=== PATIENT | female | born 1990 | race African-American/Black ===

== ENCOUNTER 2018-10-26 16:00 | Emergency (ER) | payer OTHER ==
--- OUTSIDE RECORDS SUMMARY | 2018-10-26 16:16 | XMS REPORT ---
:1990 [facility] [address] [place] [address] [address] [place] [address] Care Team Providers Name Role Phone SHANON PEREIRA JACQUE Unavailable Unavailable REDDFLIP Unavailable Unavailable SAMWAYS, ANNIKA TRUJILLO Unavailable Unavailable GAYE, MARCO POTTER Unavailable Unavailable BEERS, JERALD GIRON Unavailable Unavailable AYANNA, ETHAN SALLY Unavailable Unavailable JESSICA, MAXX Unavailable Unavailable ZINDANI, YOSELYN Unavailable Unavailable JARROUTRACI COTO G. Unavailable Unavailable MAST, RABFAN AKRAM Unavailable Unavailable URVASHI NATHAN Unavailable Unavailable CARMEN, RYAN Unavailable Unavailable TATIANA TURNER Unavailable Unavailable JACQUE ROY Unavailable Unavailable Problems This patient has no known problems. Allergies, Adverse Reactions, Alerts This patient has no known allergies or adverse reactions. Medications This patient has no known medications. Results Test Description Test Time Test Comments Text Results Atomic Results Result Comments POCT-GLUCOSE METER 2018-10-09 12:08:00 Test Item Value Reference Range Comments POC-GLUCOSE METER (BEAKER) (test 140 mg/dL 70-[address] [facility] [address] [facility] [address] COMPREHENSIVE METABOLIC [id number] 10:03:00 Test Item Value Reference Range Comments TOTAL PROTEIN (BEAKER) 6.8 gm/dL 6.0-8.3 (test raiw=278) ALBUMIN (BEAKER) (test 3.1 g/dL 3.5-5.0 esmx=6073) ALKALINE PHOSPHATASE 98 U/L 40-150 (BEAKER) (test bvyn=371) BILIRUBIN TOTAL (BEAKER) 0.2 mg/dL 0.2-1.2 (test uvgu=273) SODIUM (BEAKER) (test 136 meq/L 136-145 ymsf=640) POTASSIUM (BEAKER) (test 4.4 meq/L 3.5-5.1 lbnk=156) CHLORIDE (BEAKER) (test 97 meq/L 98-107 wvwc=624) CO2 (BEAKER) (test 33 meq/L 22-29 wiey=188) BLOOD UREA NITROGEN 17 mg/dL 7-21 (BEAKER) (test kgfg=893) CREATININE (BEAKER) (test 0.68 mg/dL 0.57-1.25 eqim=197) GLUCOSE RANDOM (BEAKER) 234 mg/dL 70-105 (test vdgn=621) CALCIUM (BEAKER) (test 9.1 mg/dL 8.4-10.2 qxgo=839) AST (SGOT) (BEAKER) (test 12 U/L 5-34 bbww=892) ALT (SGPT) (BEAKER) (test 23 U/L 6-55 bhbh=277) EGFR (BEAKER) (test 127 mL/min/1.73 sq ESTIMATED GFR IS NOT nenf=9049) m ACCURATE CREATININE CLEARANCE IN PREDICTING GLOMERULAR FILTRATION RATE. ESTIMATED GFR IS NOT APPLICABLE FOR DIALYSIS PATIENTS. CBC W/PLT COUNT & AUTO [id number] 09:50:00 Test Item Value Reference Range Comments WHITE BLOOD CELL COUNT (BEAKER) (test hnaz=785) 10.5 K/ L 3.5-10.5 RED BLOOD CELL COUNT (BEAKER) (test czxu=610) 4.14 M/ L 3.93-5.22 HEMOGLOBIN (BEAKER) (test cmuj=504) 11.2 GM/DL 11.2-15.7 HEMATOCRIT (BEAKER) (test sxcq=957) 36.8 % 34.1-44.9 MEAN CORPUSCULAR VOLUME (BEAKER) (test jrno=751) 88.9 fL 79.4-94.8 MEAN CORPUSCULAR HEMOGLOBIN (BEAKER) (test 27.1 pg 25.6-32.2 llqh=926) MEAN CORPUSCULAR HEMOGLOBIN CONC (BEAKER) (test 30.4 GM/DL 32.2-35.5 dltm=367) RED CELL DISTRIBUTION WIDTH (BEAKER) (test 17.4 % 11.7-14.4 svmn=110) PLATELET COUNT (BEAKER) (test xkfq=815) 302 K/CU MM 150-450 MEAN PLATELET VOLUME (BEAKER) (test mztr=951) 11.2 fL 9.4-12.3 NUCLEATED RED BLOOD CELLS (BEAKER) (test 0 /100 WBC 0-0 kfwz=494) NEUTROPHILS RELATIVE PERCENT (BEAKER) (test 59 % kkia=711) LYMPHOCYTES RELATIVE PERCENT (BEAKER) (test 29 % mrmd=314) MONOCYTES RELATIVE PERCENT (BEAKER) (test 8 % oear=815) EOSINOPHILS RELATIVE PERCENT (BEAKER) (test 4 % ylsv=042) BASOPHILS RELATIVE PERCENT (BEAKER) (test 0 % mblk=654) NEUTROPHILS ABSOLUTE COUNT (BEAKER) (test 6.20 K/ L 1.56-6.13 bgvi=711) LYMPHOCYTES ABSOLUTE COUNT (BEAKER) (test 3.05 K/ L 1.18-3.74 iifz=872) MONOCYTES ABSOLUTE COUNT (BEAKER) (test 0.85 K/ L 0.24-0.36 jdej=546) EOSINOPHILS ABSOLUTE COUNT (BEAKER) (test 0.37 K/ L 0.04-0.36 wtdi=992) BASOPHILS ABSOLUTE COUNT (BEAKER) (test 0.02 K/ L 0.01-0.08 zrxp=853) IMMATURE GRANULOCYTES-RELATIVE PERCENT (BEAKER) 0 % 0-1 (test ixlm=1171) POCT-GLUCOSE [id number] 09:50:00 Test Item Value Reference Range Comments POC-GLUCOSE METER (BEAKER) 271 mg/dL 70-110 TESTED AT [address] (test mygh=6539) [place] [address] POCT-GLUCOSE [id number] 01:59:00 Test Item Value Reference Range Comments POC-GLUCOSE METER (BEAKER) 377 mg/dL 70-110 Notified JORDON STAPLETON/TESTED AT [facility] (test ytlg=6480) [address] [place], [place] [id number] POCT-GLUCOSE [id number] 21:37:00 Test Item Value Reference Range Comments POC-GLUCOSE METER (BEAKER) 92 mg/dL 70-110 TESTED AT [address] (test cpxl=7383) [place] [address] POCT-GLUCOSE [id number] 17:50:00 Test Item Value Reference Range Comments POC-GLUCOSE METER (BEAKER) 183 mg/dL 70-110 TESTED AT [address] (test ypmb=6589) [place] [address] POCT-GLUCOSE [id number] 13:40:00 Test Item Value Reference Range Comments POC-GLUCOSE METER (BEAKER) 230 mg/dL 70-[address] [facility] [address] [facility] (test cxyr=7944) [facility] [address] COMPREHENSIVE METABOLIC [id number] 10:59:00 Test Item Value Reference Range Comments TOTAL PROTEIN (BEAKER) 7.0 gm/dL 6.0-8.3 (test tlsw=229) ALBUMIN (BEAKER) (test 3.2 g/dL 3.5-5.0 ayvl=8559) ALKALINE PHOSPHATASE 100 U/L 40-150 (BEAKER) (test bimc=268) BILIRUBIN TOTAL (BEAKER) 0.2 mg/dL 0.2-1.2 (test wthd=151) SODIUM (BEAKER) (test 135 meq/L 136-145 yxqi=935) POTASSIUM (BEAKER) (test 4.3 meq/L 3.5-5.1 ekoi=067) CHLORIDE (BEAKER) (test 97 meq/L 98-107 jqyk=870) CO2 (BEAKER) (test 32 meq/L 22-29 rtod=426) BLOOD UREA NITROGEN 13 mg/dL 7-21 (BEAKER) (test pbpl=636) CREATININE (BEAKER) (test 0.67 mg/dL 0.57-1.25 kddm=869) GLUCOSE RANDOM (BEAKER) 223 mg/dL 70-105 (test jflv=292) CALCIUM (BEAKER) (test 9.1 mg/dL 8.4-10.2 xbgl=183) AST (SGOT) (BEAKER) (test 14 U/L 5-34 dnkm=600) ALT (SGPT) (BEAKER) (test 27 U/L 6-55 mqem=786) EGFR (BEAKER) (test 129 mL/min/1.73 sq ESTIMATED GFR IS NOT zdwu=9995) m ACCURATE CREATININE CLEARANCE IN PREDICTING GLOMERULAR FILTRATION RATE. ESTIMATED GFR IS NOT APPLICABLE FOR DIALYSIS PATIENTS. CBC W/PLT COUNT & AUTO [id number] 10:45:00 Test Item Value Reference Range Comments WHITE BLOOD CELL COUNT (BEAKER) (test aztq=056) 12.9 K/ L 3.5-10.5 RED BLOOD CELL COUNT (BEAKER) (test zbaa=569) 4.07 M/ L 3.93-5.22 HEMOGLOBIN (BEAKER) (test ddeo=011) 11.0 GM/DL 11.2-15.7 HEMATOCRIT (BEAKER) (test rtms=475) 36.6 % 34.1-44.9 MEAN CORPUSCULAR VOLUME (BEAKER) (test djwm=075) 89.9 fL 79.4-94.8 MEAN CORPUSCULAR HEMOGLOBIN (BEAKER) (test 27.0 pg 25.6-32.2 vqpc=722) MEAN CORPUSCULAR HEMOGLOBIN CONC (BEAKER) (test 30.1 GM/DL 32.2-35.5 pkql=849) RED CELL DISTRIBUTION WIDTH (BEAKER) (test 17.7 % 11.7-14.4 ekyw=236) PLATELET COUNT (BEAKER) (test iots=245) 307 K/CU MM 150-450 MEAN PLATELET VOLUME (BEAKER) (test ejlt=639) 11.5 fL 9.4-12.3 NUCLEATED RED BLOOD CELLS (BEAKER) (test 0 /100 WBC 0-0 kdvr=276) NEUTROPHILS RELATIVE PERCENT (BEAKER) (test 65 % uano=467) LYMPHOCYTES RELATIVE PERCENT (BEAKER) (test 23 % fbgj=151) MONOCYTES RELATIVE PERCENT (BEAKER) (test 8 % vnba=614) EOSINOPHILS RELATIVE PERCENT (BEAKER) (test 3 % pqqo=440) BASOPHILS RELATIVE PERCENT (BEAKER) (test 0 % lcxz=397) NEUTROPHILS ABSOLUTE COUNT (BEAKER) (test 8.36 K/ L 1.56-6.13 awqe=987) LYMPHOCYTES ABSOLUTE COUNT (BEAKER) (test 3.01 K/ L 1.18-3.74 jccb=620) MONOCYTES ABSOLUTE COUNT (BEAKER) (test 1.02 K/ L 0.24-0.36 tlld=379) EOSINOPHILS ABSOLUTE COUNT (BEAKER) (test 0.43 K/ L 0.04-0.36 arvb=747) BASOPHILS ABSOLUTE COUNT (BEAKER) (test 0.03 K/ L 0.01-0.08 iyjc=255) IMMATURE GRANULOCYTES-RELATIVE PERCENT (BEAKER) 0 % 0-1 (test xmik=7365) POCT-GLUCOSE [id number] 10:28:00 Test Item Value Reference Range Comments POC-GLUCOSE METER (BEAKER) 276 mg/dL 70-[address] [facility] [address] [facility] (test bsqr=4372) [facility] [address] POCT-GLUCOSE [id number] 05:53:00 Test Item Value Reference Range Comments POC-GLUCOSE METER (BEAKER) 379 mg/dL 70-110 Notified JORDON STAPLETON/TESTED AT [facility] (test bwvn=8626) [address] [facility] [address] POCT-GLUCOSE [id number] 21:20:00 Test Item Value Reference Range Comments POC-GLUCOSE METER (BEAKER) 139 mg/dL 70-110 TESTED AT [address] (test tcfa=0662) [facility] [address] POCT-GLUCOSE [id number] 19:14:00 Test Item Value Reference Range Comments POC-GLUCOSE METER (BEAKER) 302 mg/dL 70-110 TESTED AT [address] (test ruzp=8674) [facility] [address] CBC W/PLT COUNT & AUTO [id number] 15:49:00 Test Item Value Reference Range Comments WHITE BLOOD CELL COUNT (BEAKER) (test qqfa=157) 15.7 K/ L 3.5-10.5 RED BLOOD CELL COUNT (BEAKER) (test lhea=274) 4.36 M/ L 3.93-5.22 HEMOGLOBIN (BEAKER) (test eqvp=774) 11.8 GM/DL 11.2-15.7 HEMATOCRIT (BEAKER) (test qkqk=981) 39.1 % 34.1-44.9 MEAN CORPUSCULAR VOLUME (BEAKER) (test psff=792) 89.7 fL 79.4-94.8 MEAN CORPUSCULAR HEMOGLOBIN (BEAKER) (test 27.1 pg 25.6-32.2 uigi=675) MEAN CORPUSCULAR HEMOGLOBIN CONC (BEAKER) (test 30.2 GM/DL 32.2-35.5 udqo=290) RED CELL DISTRIBUTION WIDTH (BEAKER) (test 18.0 % 11.7-14.4 gdfk=181) PLATELET COUNT (BEAKER) (test ekwv=317) 378 K/CU MM 150-450 MEAN PLATELET VOLUME (BEAKER) (test jazu=137) 11.5 fL 9.4-12.3 NUCLEATED RED BLOOD CELLS (BEAKER) (test 0 /100 WBC 0-0 yxoa=644) (CELLAVISION MANUAL DIFF)2018-10-07 15:49:00 Test Item Value Reference Range Comments NEUTROPHILS - REL (CELLAVISION)(BEAKER) (test 86 % dreb=0816) LYMPHOCYTES - REL (CELLAVISION)(BEAKER) (test 9 % idfs=4629) MONOCYTES - REL (CELLAVISION)(BEAKER) (test 2 % xuhw=0201) BANDS - REL (CELLAVISION)(BEAKER) (test 1 % 0-10 mufk=6237) NEUTROPHILS - ABS (CELLAVISION)(BEAKER) (test 13.50 K/ul 1.56-6.13 bpdh=4119) LYMPHOCYTES - ABS (CELLAVISION)(BEAKER) (test 1.41 K/ul 1.18-3.74 jkkr=8904) MONOCYTES - ABS (CELLAVISION)(BEAKER) (test 0.31 K/uL 0.24-0.36 jlrw=8542) BANDS - ABS (CELLAVISION)(BEAKER) (test 0.16 K/uL 0.00-0.80 cpwx=1425) TOTAL COUNTED (BEAKER) (test tfij=7382) 100 GIANT PLATELETS (BEAKER) (test rqwz=046) Present VACUOLATED NEUTROPHILS (BEAKER) (test scwd=404) Present PLASMACYTOID LYMPHS(BEAKER) (test lloc=9236) Present ANISOCYTOSIS (BEAKER) (test qtdh=637) 1+ few MACROCYTES (BEAKER) (test ntjq=082) 1+ few ARTIFACT (CELLAVISION)(BEAKER) (test gskj=8835) Present PLATELET CONCENTRATION (CELLAVISION)(BEAKER) Adequate (test quhv=7074) Received comment: User comments: Slide comments:COMPREHENSIVE METABOLIC [id number] 13:36:00 Test Item Value Reference Range Comments TOTAL PROTEIN (BEAKER) 7.5 gm/dL 6.0-8.3 (test fvje=462) ALBUMIN (BEAKER) (test 3.4 g/dL 3.5-5.0 letd=2044) ALKALINE PHOSPHATASE 110 U/L 40-150 (BEAKER) (test xyqm=695) BILIRUBIN TOTAL (BEAKER) 0.2 mg/dL 0.2-1.2 (test sggh=813) SODIUM (BEAKER) (test 138 meq/L 136-145 thaa=447) POTASSIUM (BEAKER) (test 4.6 meq/L 3.5-5.1 udde=881) CHLORIDE (BEAKER) (test 94 meq/L 98-107 qizv=415) CO2 (BEAKER) (test 35 meq/L 22-29 jjxz=192) BLOOD UREA NITROGEN 14 mg/dL 7-21 (BEAKER) (test cmmf=152) CREATININE (BEAKER) (test 0.73 mg/dL 0.57-1.25 ytvc=189) GLUCOSE RANDOM (BEAKER) 139 mg/dL 70-105 (test vylw=747) CALCIUM (BEAKER) (test 9.5 mg/dL 8.4-10.2 tfcd=985) AST (SGOT) (BEAKER) (test 20 U/L 5-34 dfxh=152) ALT (SGPT) (BEAKER) (test 36 U/L 6-55 iyjn=943) EGFR (BEAKER) (test 117 mL/min/1.73 sq ESTIMATED GFR IS NOT unld=6403) m ACCURATE CREATININE CLEARANCE IN PREDICTING GLOMERULAR FILTRATION RATE. ESTIMATED GFR IS NOT APPLICABLE FOR DIALYSIS PATIENTS. POCT-GLUCOSE [id number] 12:28:00 Test Item Value Reference Range Comments POC-GLUCOSE METER (BEAKER) 132 mg/dL 70-110 TESTED AT [place] [address] [place] (test szyp=5021) [place] [address] POCT-GLUCOSE [id number] 07:46:00 Test Item Value Reference Range Comments POC-GLUCOSE METER (BEAKER) 405 mg/dL 70-110 Notified JORDON STAPLETON/TESTED AT [facility] (test nith=5847) [facility] [address] POCT-GLUCOSE [id number] 02:08:00 Test Item Value Reference Range Comments POC-GLUCOSE METER (BEAKER) 112 mg/dL 70-110 TESTED AT [place] [address] [place] (test iksv=8614) [place] [address] POCT-GLUCOSE [id number] 21:19:00 Test Item Value Reference Range Comments POC-GLUCOSE METER (BEAKER) 307 mg/dL 70-110 Notified JORDON STAPLETON/TESTED AT [facility] (test oeia=1476) [facility] [place] [address] COMPREHENSIVE METABOLIC [id number] 21:15:00 Test Item Value Reference Range Comments TOTAL PROTEIN (BEAKER) 6.1 gm/dL 6.0-8.3 (test xytx=196) ALBUMIN (BEAKER) (test 2.9 g/dL 3.5-5.0 vjmi=5708) ALKALINE PHOSPHATASE 88 U/L 40-150 (BEAKER) (test qafb=016) BILIRUBIN TOTAL (BEAKER) 0.1 mg/dL 0.2-1.2 (test inqu=181) SODIUM (BEAKER) (test 137 meq/L 136-145 vael=931) POTASSIUM (BEAKER) (test 4.1 meq/L 3.5-5.1 lwtl=574) CHLORIDE (BEAKER) (test 97 meq/L 98-107 dbwi=370) CO2 (BEAKER) (test 30 meq/L 22-29 zpjq=776) BLOOD UREA NITROGEN 13 mg/dL 7-21 (BEAKER) (test ggbb=133) CREATININE (BEAKER) (test 0.84 mg/dL 0.57-1.25 fnem=953) GLUCOSE RANDOM (BEAKER) 357 mg/dL 70-105 (test cgkk=734) CALCIUM (BEAKER) (test 8.4 mg/dL 8.4-10.2 qmfw=400) AST (SGOT) (BEAKER) (test 17 U/L 5-34 pcyg=288) ALT (SGPT) (BEAKER) (test 35 U/L 6-55 byix=424) EGFR (BEAKER) (test 99 mL/min/1.73 sq m ESTIMATED GFR IS NOT htwv=7441) ACCURATE CREATININE CLEARANCE IN PREDICTING GLOMERULAR FILTRATION RATE. ESTIMATED GFR IS NOT APPLICABLE FOR DIALYSIS PATIENTS. CBC W/PLT COUNT & AUTO [id number] 20:58:00 Test Item Value Reference Range Comments WHITE BLOOD CELL COUNT (BEAKER) (test cyvy=822) 17.1 K/ L 3.5-10.5 RED BLOOD CELL COUNT (BEAKER) (test qdfi=402) 3.64 M/ L 3.93-5.22 HEMOGLOBIN (BEAKER) (test jdmx=663) 9.7 GM/DL 11.2-15.7 HEMATOCRIT (BEAKER) (test brjr=633) 33.0 % 34.1-44.9 MEAN CORPUSCULAR VOLUME (BEAKER) (test wuyf=857) 90.7 fL 79.4-94.8 MEAN CORPUSCULAR HEMOGLOBIN (BEAKER) (test 26.6 pg 25.6-32.2 uryo=786) MEAN CORPUSCULAR HEMOGLOBIN CONC (BEAKER) (test 29.4 GM/DL 32.2-35.5 xvaj=453) RED CELL DISTRIBUTION WIDTH (BEAKER) (test 18.0 % 11.7-14.4 lltn=098) PLATELET COUNT (BEAKER) (test hcbm=583) 326 K/CU MM 150-450 MEAN PLATELET VOLUME (BEAKER) (test wdwi=740) 11.7 fL 9.4-12.3 NUCLEATED RED BLOOD CELLS (BEAKER) (test 0 /100 WBC 0-0 wktw=116) NEUTROPHILS RELATIVE PERCENT (BEAKER) (test 89 % bejf=885) LYMPHOCYTES RELATIVE PERCENT (BEAKER) (test 7 % lnwa=160) MONOCYTES RELATIVE PERCENT (BEAKER) (test 4 % yffm=836) EOSINOPHILS RELATIVE PERCENT (BEAKER) (test 0 % iqqw=717) BASOPHILS RELATIVE PERCENT (BEAKER) (test 0 % xrcz=514) NEUTROPHILS ABSOLUTE COUNT (BEAKER) (test 15.12 K/ L 1.56-6.13 gmub=666) LYMPHOCYTES ABSOLUTE COUNT (BEAKER) (test 1.14 K/ L 1.18-3.74 kwpv=505) MONOCYTES ABSOLUTE COUNT (BEAKER) (test 0.67 K/ L 0.24-0.36 tavk=647) EOSINOPHILS ABSOLUTE COUNT (BEAKER) (test 0.02 K/ L 0.04-0.36 ouea=789) BASOPHILS ABSOLUTE COUNT (BEAKER) (test 0.02 K/ L 0.01-0.08 nrhf=082) IMMATURE GRANULOCYTES-RELATIVE PERCENT (BEAKER) 1 % 0-1 (test tcal=4617) POCT-GLUCOSE [id number] 17:49:00 Test Item Value Reference Range Comments POC-GLUCOSE METER (BEAKER) 272 mg/dL 70-110 TESTED AT [address] (test gvml=2609) [place] [address] POCT-GLUCOSE [id number] 13:51:00 Test Item Value Reference Range Comments POC-GLUCOSE METER (BEAKER) 399 mg/dL 70-110 TESTED AT [address] (test bfaa=7670) [place] [address] POCT-GLUCOSE [id number] 12:53:00 Test Item Value Reference Range Comments POC-GLUCOSE METER (BEAKER) 182 mg/dL 70-110 TESTED AT [address] (test rnxx=5661) [place] [address] POCT-GLUCOSE [id number] 08:27:00 Test Item Value Reference Range Comments POC-GLUCOSE METER (BEAKER) 201 mg/dL 70-110 TESTED AT [address] (test ewcn=9949) [place] [address] BLOOD [id number] 23:01:00 Test Item Value Reference Range Comments CULTURE (BEAKER) (test klyg=6277) No growth in 5 days POCT-GLUCOSE [id number] 21:41:00 Test Item Value Reference Range Comments POC-GLUCOSE METER (BEAKER) 327 mg/dL 70-110 Notified JORDON STAPLETON/TESTED AT [facility] (test gcqw=3481) [address] [place] [address] POCT-GLUCOSE [id number] 16:57:00 Test Item Value Reference Range Comments POC-GLUCOSE METER (BEAKER) 197 mg/dL 70-110 TESTED AT [address] (test viio=7232) [place] [address] POCT-GLUCOSE [id number] 13:01:00 Test Item Value Reference Range Comments POC-GLUCOSE METER (BEAKER) 311 mg/dL 70-110 Notified JORDON STAPLETON/TESTED AT [facility] (test dzyx=1502) [address] [place] [address] POCT-GLUCOSE [id number] 12:11:00 Test Item Value Reference Range Comments POC-GLUCOSE METER (BEAKER) 54 mg/dL 70-110 Notified JORDON STAPLETON/TESTED AT [facility] (test ttby=9542) [address] [place] [address] POCT-GLUCOSE [id number] 08:52:00 Test Item Value Reference Range Comments POC-GLUCOSE METER (BEAKER) 165 mg/dL 70-110 TESTED AT [address] (test bxia=6715) [place] [address] CBC W/PLT COUNT & AUTO [id number] 06:47:00 Test Item Value Reference Range Comments WHITE BLOOD CELL COUNT (BEAKER) (test jtif=150) 20.1 K/ L 3.5-10.5 RED BLOOD CELL COUNT (BEAKER) (test akdy=322) 4.08 M/ L 3.93-5.22 HEMOGLOBIN (BEAKER) (test fgzp=289) 10.9 GM/DL 11.2-15.7 HEMATOCRIT (BEAKER) (test ooxy=072) 36.2 % 34.1-44.9 MEAN CORPUSCULAR VOLUME (BEAKER) (test xzdx=053) 88.7 fL 79.4-94.8 MEAN CORPUSCULAR HEMOGLOBIN (BEAKER) (test 26.7 pg 25.6-32.2 kcrp=449) MEAN CORPUSCULAR HEMOGLOBIN CONC (BEAKER) (test 30.1 GM/DL 32.2-35.5 czmg=541) RED CELL DISTRIBUTION WIDTH (BEAKER) (test 17.9 % 11.7-14.4 zltf=946) PLATELET COUNT (BEAKER) (test idjm=049) 348 K/CU MM 150-450 MEAN PLATELET VOLUME (BEAKER) (test bnve=566) 12.1 fL 9.4-12.3 NUCLEATED RED BLOOD CELLS (BEAKER) (test 0 /100 WBC 0-0 fori=287) (CELLAVISION MANUAL DIFF)2018-10-05 06:47:00 Test Item Value Reference Range Comments NEUTROPHILS - REL (CELLAVISION)(BEAKER) (test 77 % qhwq=5603) LYMPHOCYTES - REL (CELLAVISION)(BEAKER) (test 15 % szrv=1295) MONOCYTES - REL (CELLAVISION)(BEAKER) (test 5 % rhen=5543) EOSINOPHILS - REL (CELLAVISION)(BEAKER) (test 1 % fjet=6224) BANDS - REL (CELLAVISION)(BEAKER) (test 1 % 0-10 eblt=6758) ATYPICAL LYMPHOCYTES - REL (CELLAVISION)(BEAKER) 1 % 0-0 (test aibm=8429) NEUTROPHILS - ABS (CELLAVISION)(BEAKER) (test 15.48 K/ul 1.56-6.13 jbrj=0569) LYMPHOCYTES - ABS (CELLAVISION)(BEAKER) (test 3.02 K/ul 1.18-3.74 jbjz=0945) MONOCYTES - ABS (CELLAVISION)(BEAKER) (test 1.01 K/uL 0.24-0.36 cmxl=8465) EOSINOPHILS - ABS (CELLAVISION)(BEAKER) (test 0.20 K/uL 0.04-0.36 rygd=4504) BANDS - ABS (CELLAVISION)(BEAKER) (test 0.20 K/uL 0.00-0.80 nkgx=4220) ATYPICAL LYMPHOCYTES - ABS (CELLAVISION)(BEAKER) 0.20 K/uL 0.00-0.00 (test kedl=6772) TOTAL COUNTED (BEAKER) (test ejea=2053) 100 WBC MORPHOLOGY (BEAKER) (test zkff=444) Normal PLT MORPHOLOGY (BEAKER) (test qgec=897) Normal POLYCHROMATOPHILLIC RBCS(BEAKER) (test gxtn=425) 1+ few HYPOCHROMIA (BEAKER) (test xlfr=159) 1+ few ANISOCYTOSIS (BEAKER) (test ffux=043) 1+ few MACROCYTES (BEAKER) (test gjbc=257) 1+ few ARTIFACT (CELLAVISION)(BEAKER) (test lape=4114) Present PLATELET CONCENTRATION (CELLAVISION)(BEAKER) Adequate (test eimv=8419) Received comment: User comments: Slide comments:COMPREHENSIVE METABOLIC [id number] 04:58:00 Test Item Value Reference Range Comments TOTAL PROTEIN (BEAKER) 7.4 gm/dL 6.0-8.3 (test kyll=327) ALBUMIN (BEAKER) (test 3.5 g/dL 3.5-5.0 vura=5098) ALKALINE PHOSPHATASE 119 U/L 40-150 (BEAKER) (test tddh=586) BILIRUBIN TOTAL (BEAKER) 0.1 mg/dL 0.2-1.2 (test kbon=068) SODIUM (BEAKER) (test 138 meq/L 136-145 ejus=026) POTASSIUM (BEAKER) (test 3.9 meq/L 3.5-5.1 ddsg=497) CHLORIDE (BEAKER) (test 95 meq/L 98-107 mvwd=704) CO2 (BEAKER) (test 31 meq/L 22-29 dlxu=879) BLOOD UREA NITROGEN 26 mg/dL 7-21 (BEAKER) (test yagp=252) CREATININE (BEAKER) (test 0.75 mg/dL 0.57-1.25 cpvl=324) GLUCOSE RANDOM (BEAKER) 98 mg/dL 70-105 (test tlgj=915) CALCIUM (BEAKER) (test 9.5 mg/dL 8.4-10.2 ktkt=607) AST (SGOT) (BEAKER) (test 25 U/L 5-34 ccio=610) ALT (SGPT) (BEAKER) (test 58 U/L 6-55 wxdt=410) EGFR (BEAKER) (test 113 mL/min/1.73 sq ESTIMATED GFR IS NOT kjgh=1449) m ACCURATE CREATININE CLEARANCE IN PREDICTING GLOMERULAR FILTRATION RATE. ESTIMATED GFR IS NOT APPLICABLE FOR DIALYSIS PATIENTS. POCT-GLUCOSE [id number] 23:13:00 Test Item Value Reference Range Comments POC-GLUCOSE METER (BEAKER) 210 mg/dL 70-110 TESTED AT [address] (test eusb=0284) [place] [address] BLOOD [id number] 23:01:00 Test Item Value Reference Range Comments CULTURE (BEAKER) (test fqoq=4214) No growth in 5 days POCT-GLUCOSE [id number] 18:25:00 Test Item Value Reference Range Comments POC-GLUCOSE METER (BEAKER) 186 mg/dL 70-110 TESTED AT [address] (test ikmv=5538) [place] [address] FUNGUS CULTURE + [id number] 14:17:00 Test Item Value Reference Range Comments CULTURE (BEAKER) (test 1+ Clau dubliniensis xrey=1820) FUNGUS SMEAR (BEAKER) (test No fungi seen slge=6106) POCT-GLUCOSE [id number] 12:24:00 Test Item Value Reference Range Comments POC-GLUCOSE METER (BEAKER) 183 mg/dL 70-110 TESTED AT [address] (test vztb=6909) [place] [address] POCT-GLUCOSE [id number] 09:13:00 Test Item Value Reference Range Comments POC-GLUCOSE METER (BEAKER) 81 mg/dL 70-110 TESTED AT [address] (test qqqb=5540) [place] [address] SPUTUM CULTURE + GRAM [id number] 09:05:00 Test Item Value Reference Range Comments CULTURE (BEAKER) (test PSEUDOMONAS 1+ Pseudomonas qtwm=3287) AERUGINOSA aeruginosa Amikacin (test code=1) Susceptible 0-16 , Resistant <0 or >16 Aztreonam (test Susceptible 0-8 , code=32) Resistant <0 or >8 Cefepime (test code=51) Susceptible 0-8 , Resistant <0 or >8 Ceftazidime (test Susceptible 0-8 , code=27) Resistant <0 or >8 Ciprofloxacin (test Susceptible 0-1 , code=7) Resistant <0 or >1 Gentamicin (test Susceptible 0-4 , code=18) Resistant <0 or >4 Imipenem (test code=19) Susceptible 0-2 , Resistant <0 or >2 Levofloxacin (test Susceptible 0-2 , code=22) Resistant <0 or >2 Piperacillin (test Susceptible 0-16 , code=24) Resistant <0 or >16 Piperacillin + Susceptible 0-16 , Tazobactam (test Resistant <0 or >16 code=29) Tobramycin (test Susceptible 0-4 , code=25) Resistant <0 or >4 CULTURE (Communication IntelligenceAKER) (test PSEUDOMONAS 1+ Pseudomonas inoh=1122) AERUGINOSA aeruginosa (MUCOID-PHENOTYPE) (Mucoid-phenotype) Amikacin (test code=1) Susceptible 0-16 , Resistant <0 or >16 Aztreonam (test Susceptible 0-8 , code=32) Resistant <0 or >8 Cefepime (test code=51) Susceptible 0-8 , Resistant <0 or >8 Ceftazidime (test Susceptible 0-8 , code=27) Resistant <0 or >8 Ciprofloxacin (test Susceptible 0-1 , code=7) Resistant <0 or >1 Gentamicin (test Susceptible 0-4 , code=18) Resistant <0 or >4 Imipenem (test code=19) Susceptible 0-2 , Resistant <0 or >2 Levofloxacin (test Susceptible 0-2 , code=22) Resistant <0 or >2 Meropenem (test Susceptible 0-2 , code=34) Resistant <0 or >2 Piperacillin (test Susceptible 0-16 , code=24) Resistant <0 or >16 Piperacillin + Susceptible 0-16 , Tazobactam (test Resistant <0 or >16 code=29) Tobramycin (test Susceptible 0-4 , code=25) Resistant <0 or >4 1+ Normal respiratory derick presentPOCT-GLUCOSE [id number] 06:29:00 Test Item Value Reference Range Comments POC-GLUCOSE METER (BEAKER) 291 mg/dL 70-[address] [facility] [facility]test bnsn=2950) [facility] [address] COMPREHENSIVE METABOLIC [id number] 06:00:00 Test Item Value Reference Range Comments TOTAL PROTEIN (BEAKER) 6.2 gm/dL 6.0-8.3 (test gtjt=093) ALBUMIN (BEAKER) (test 3.0 g/dL 3.5-5.0 bvgi=5886) ALKALINE PHOSPHATASE 93 U/L 40-150 (BEAKER) (test xmnb=592) BILIRUBIN TOTAL (BEAKER) 0.1 mg/dL 0.2-1.2 (test awcq=875) SODIUM (BEAKER) (test 136 meq/L 136-145 nlps=144) POTASSIUM (BEAKER) (test 4.2 meq/L 3.5-5.1 ykja=925) CHLORIDE (BEAKER) (test 96 meq/L 98-107 sqkf=283) CO2 (BEAKER) (test 31 meq/L 22-29 aloz=194) BLOOD UREA NITROGEN 19 mg/dL 7-21 (BEAKER) (test ztmt=097) CREATININE (BEAKER) (test 0.71 mg/dL 0.57-1.25 ervb=467) GLUCOSE RANDOM (BEAKER) 297 mg/dL 70-105 (test aukc=538) CALCIUM (BEAKER) (test 8.6 mg/dL 8.4-10.2 mevg=476) AST (SGOT) (BEAKER) (test 30 U/L 5-34 cdem=507) ALT (SGPT) (BEAKER) (test 60 U/L 6-55 rvvx=217) EGFR (BEAKER) (test 121 mL/min/1.73 sq ESTIMATED GFR IS NOT rjpr=4347) m ACCURATE CREATININE CLEARANCE IN PREDICTING GLOMERULAR FILTRATION RATE. ESTIMATED GFR IS NOT APPLICABLE FOR DIALYSIS PATIENTS. CBC W/PLT COUNT & AUTO [id number] 05:35:00 Test Item Value Reference Range Comments WHITE BLOOD CELL COUNT (BEAKER) (test isai=664) 17.7 K/ L 3.5-10.5 RED BLOOD CELL COUNT (BEAKER) (test ohnd=236) 3.46 M/ L 3.93-5.22 HEMOGLOBIN (BEAKER) (test lfxz=464) 9.4 GM/DL 11.2-15.7 HEMATOCRIT (BEAKER) (test xuxx=522) 31.4 % 34.1-44.9 MEAN CORPUSCULAR VOLUME (BEAKER) (test fgjj=031) 90.8 fL 79.4-94.8 MEAN CORPUSCULAR HEMOGLOBIN (BEAKER) (test 27.2 pg 25.6-32.2 ckfy=478) MEAN CORPUSCULAR HEMOGLOBIN CONC (BEAKER) (test 29.9 GM/DL 32.2-35.5 rkwu=713) RED CELL DISTRIBUTION WIDTH (BEAKER) (test 17.4 % 11.7-14.4 ohzg=682) PLATELET COUNT (BEAKER) (test tzsx=129) 281 K/CU MM 150-450 MEAN PLATELET VOLUME (BEAKER) (test bvvb=277) 12.8 fL 9.4-12.3 NUCLEATED RED BLOOD CELLS (BEAKER) (test 0 /100 WBC 0-0 nbmj=371) NEUTROPHILS RELATIVE PERCENT (BEAKER) (test 85 % vqpa=691) LYMPHOCYTES RELATIVE PERCENT (BEAKER) (test 7 % cyba=272) MONOCYTES RELATIVE PERCENT (BEAKER) (test 7 % woxw=547) EOSINOPHILS RELATIVE PERCENT (BEAKER) (test 0 % inzx=539) BASOPHILS RELATIVE PERCENT (BEAKER) (test 0 % vobw=045) NEUTROPHILS ABSOLUTE COUNT (BEAKER) (test 15.07 K/ L 1.56-6.13 ozbf=179) LYMPHOCYTES ABSOLUTE COUNT (BEAKER) (test 1.20 K/ L 1.18-3.74 msfo=685) MONOCYTES ABSOLUTE COUNT (BEAKER) (test 1.17 K/ L 0.24-0.36 flxe=139) EOSINOPHILS ABSOLUTE COUNT (BEAKER) (test 0.05 K/ L 0.04-0.36 qhnq=575) BASOPHILS ABSOLUTE COUNT (BEAKER) (test 0.03 K/ L 0.01-0.08 fjoq=238) IMMATURE GRANULOCYTES-RELATIVE PERCENT (BEAKER) 1 % 0-1 (test wlaz=8395) POCT-GLUCOSE [id number] 05:34:00 Test Item Value Reference Range Comments POC-GLUCOSE METER (BEAKER) 207 mg/dL 70-110 TESTED AT [address] (test lgad=0669) [facility] [address] POCT-GLUCOSE [id number] 21:35:00 Test Item Value Reference Range Comments POC-GLUCOSE METER (BEAKER) 500 mg/dL 70-110 Notified JORDON STAPLETON/TESTED AT [facility] (test umey=7580) [address] [place] [address] POCT-GLUCOSE [id number] 18:12:00 Test Item Value Reference Range Comments POC-GLUCOSE METER (BEAKER) 433 mg/dL 70-110 TESTED AT [address] (test ykwl=5444) [facility] [address] POCT-GLUCOSE [id number] 14:05:00 Test Item Value Reference Range Comments POC-GLUCOSE METER (BEAKER) 298 mg/dL 70-110 TESTED AT [address] (test bpas=3097) [facility] [address] POCT-GLUCOSE [id number] 08:34:00 Test Item Value Reference Range Comments POC-GLUCOSE METER (BEAKER) 171 mg/dL 70-110 TESTED AT [address] (test zfzb=9157) [facility] [address] COMPREHENSIVE METABOLIC [id number] 05:54:00 Test Item Value Reference Range Comments TOTAL PROTEIN (BEAKER) 6.1 gm/dL 6.0-8.3 (test xpvw=490) ALBUMIN (BEAKER) (test 2.9 g/dL 3.5-5.0 qvkb=7580) ALKALINE PHOSPHATASE 92 U/L 40-150 (BEAKER) (test wgvz=348) BILIRUBIN TOTAL (BEAKER) 0.1 mg/dL 0.2-1.2 (test wkqq=301) SODIUM (BEAKER) (test 135 meq/L 136-145 rfts=749) POTASSIUM (BEAKER) (test 4.5 meq/L 3.5-5.1 phry=048) CHLORIDE (BEAKER) (test 92 meq/L 98-107 lggi=221) CO2 (BEAKER) (test 36 meq/L 22-29 bwli=468) BLOOD UREA NITROGEN 16 mg/dL 7-21 (BEAKER) (test mnci=213) CREATININE (BEAKER) (test 0.77 mg/dL 0.57-1.25 blzq=717) GLUCOSE RANDOM (BEAKER) 497 mg/dL 70-105 (test bmav=170) CALCIUM (BEAKER) (test 9.0 mg/dL 8.4-10.2 sapb=871) AST (SGOT) (BEAKER) (test 32 U/L 5-34 cjxp=231) ALT (SGPT) (BEAKER) (test 68 U/L 6-55 tuyg=616) EGFR (BEAKER) (test 110 mL/min/1.73 sq ESTIMATED GFR IS NOT dmhr=7958) m ACCURATE CREATININE CLEARANCE IN PREDICTING GLOMERULAR FILTRATION RATE. ESTIMATED GFR IS NOT APPLICABLE FOR DIALYSIS PATIENTS. [id number] 05:41:00 Test Item Value Reference Range Comments POTASSIUM (BEAKER) (test rrhc=044) 4.5 meq/L 3.5-5.1 POCT-GLUCOSE [id number] 05:24:00 Test Item Value Reference Range Comments POC-GLUCOSE METER (BEAKER) 415 mg/dL 70-110 Notified JORDON STAPLETON/TESTED AT [facility] (test fuhj=0367) [address] [facility] [address] CBC W/PLT COUNT & AUTO [id number] 05:20:00 Test Item Value Reference Range Comments WHITE BLOOD CELL COUNT (BEAKER) (test pofj=025) 12.9 K/ L 3.5-10.5 RED BLOOD CELL COUNT (BEAKER) (test gefv=475) 3.63 M/ L 3.93-5.22 HEMOGLOBIN (BEAKER) (test pmrj=350) 9.7 GM/DL 11.2-15.7 HEMATOCRIT (BEAKER) (test liio=615) 32.2 % 34.1-44.9 MEAN CORPUSCULAR VOLUME (BEAKER) (test ckwi=873) 88.7 fL 79.4-94.8 MEAN CORPUSCULAR HEMOGLOBIN (BEAKER) (test 26.7 pg 25.6-32.2 oczt=458) MEAN CORPUSCULAR HEMOGLOBIN CONC (BEAKER) (test 30.1 GM/DL 32.2-35.5 miya=837) RED CELL DISTRIBUTION WIDTH (BEAKER) (test 17.1 % 11.7-14.4 esxc=598) PLATELET COUNT (BEAKER) (test sobe=061) 305 K/CU MM 150-450 MEAN PLATELET VOLUME (BEAKER) (test lugz=693) 12.0 fL 9.4-12.3 NUCLEATED RED BLOOD CELLS (BEAKER) (test 0 /100 WBC 0-0 fcmt=534) NEUTROPHILS RELATIVE PERCENT (BEAKER) (test 77 % zxbf=198) LYMPHOCYTES RELATIVE PERCENT (BEAKER) (test 12 % xapg=855) MONOCYTES RELATIVE PERCENT (BEAKER) (test 10 % pskm=190) EOSINOPHILS RELATIVE PERCENT (BEAKER) (test 1 % ihgh=876) BASOPHILS RELATIVE PERCENT (BEAKER) (test 0 % swbu=298) NEUTROPHILS ABSOLUTE COUNT (BEAKER) (test 9.87 K/ L 1.56-6.13 nrim=666) LYMPHOCYTES ABSOLUTE COUNT (BEAKER) (test 1.50 K/ L 1.18-3.74 flzi=999) MONOCYTES ABSOLUTE COUNT (BEAKER) (test 1.24 K/ L 0.24-0.36 mypf=198) EOSINOPHILS ABSOLUTE COUNT (BEAKER) (test 0.12 K/ L 0.04-0.36 kyrt=816) BASOPHILS ABSOLUTE COUNT (BEAKER) (test 0.02 K/ L 0.01-0.08 mkvl=017) IMMATURE GRANULOCYTES-RELATIVE PERCENT (BEAKER) 1 % 0-1 (test asxu=1102) LACTIC ACID, VENOUS, WHOLE [id number] 05:18:00 Test Item Value Reference Range Comments LACTATE BLOOD VENOUS (2) (BEAKER) (test 2.1 mmol/L 0.5-2.2 uorg=5095) [id number] 05:15:00 Test Item Value Reference Range Comments POTASSIUM (BEAKER) (test crcq=751) 4.5 meq/L 3.5-5.1 POCT-GLUCOSE [id number] 02:55:00 Test Item Value Reference Range Comments POC-GLUCOSE METER (BEAKER) 464 mg/dL 70-110 Notified JORDON STAPLETON/TESTED AT [facility] (test uvzd=4653) [address] [facility] [address] POCT-GLUCOSE [id number] 21:44:00 Test Item Value Reference Range Comments POC-GLUCOSE METER (BEAKER) 324 mg/dL 70-110 Notified JORDON STAPLETON/TESTED AT [facility] (test qyhn=3647) [address] [place] [address] POCT-GLUCOSE [id number] 18:33:00 Test Item Value Reference Range Comments POC-GLUCOSE METER (BEAKER) 272 mg/dL 70-[address] [facility] [address] [facility] (test qxeg=3996) [facility] [address] POCT-GLUCOSE [id number] 17:27:00 Test Item Value Reference Range Comments POC-GLUCOSE METER (BEAKER) 354 mg/dL 70-110 Notified JORDON STAPLETON/TESTED AT [facility] (test ffae=7939) [address] [place] [address] POCT-GLUCOSE [id number] 12:14:00 Test Item Value Reference Range Comments POC-GLUCOSE METER (BEAKER) 178 mg/dL 70-110 TESTED AT [address] (test umrv=5929) [facility] [address] POCT-GLUCOSE [id number] 08:20:00 Test Item Value Reference Range Comments POC-GLUCOSE METER (BEAKER) 211 mg/dL 70-110 TESTED AT [address] (test qtbp=1708) [facility] [address] COMPREHENSIVE METABOLIC [id number] 06:42:00 Test Item Value Reference Range Comments TOTAL PROTEIN (BEAKER) 6.1 gm/dL 6.0-8.3 (test tlks=085) ALBUMIN (BEAKER) (test 2.9 g/dL 3.5-5.0 hmdk=8099) ALKALINE PHOSPHATASE 88 U/L 40-150 (BEAKER) (test lbnj=706) BILIRUBIN TOTAL (BEAKER) 0.1 mg/dL 0.2-1.2 (test drou=944) SODIUM (BEAKER) (test 137 meq/L 136-145 kjgy=446) POTASSIUM (BEAKER) (test 5.0 meq/L 3.5-5.1 rick=220) CHLORIDE (BEAKER) (test 95 meq/L 98-107 vbkq=309) CO2 (BEAKER) (test 35 meq/L 22-29 jxua=185) BLOOD UREA NITROGEN 23 mg/dL 7-21 (BEAKER) (test nhnx=368) CREATININE (BEAKER) (test 0.67 mg/dL 0.57-1.25 vftu=113) GLUCOSE RANDOM (BEAKER) 210 mg/dL 70-105 (test vcte=109) CALCIUM (BEAKER) (test 8.8 mg/dL 8.4-10.2 mkwk=599) AST (SGOT) (BEAKER) (test 51 U/L 5-34 gpec=790) ALT (SGPT) (BEAKER) (test 74 U/L 6-55 udwr=710) EGFR (BEAKER) (test 129 mL/min/1.73 sq ESTIMATED GFR IS NOT wknd=7401) m ACCURATE CREATININE CLEARANCE IN PREDICTING GLOMERULAR FILTRATION RATE. ESTIMATED GFR IS NOT APPLICABLE FOR DIALYSIS PATIENTS. POCT-GLUCOSE [id number] 06:39:00 Test Item Value Reference Range Comments POC-GLUCOSE METER (BEAKER) 224 mg/dL 70-[address] [facility] [address] [facility] (test nfun=7533) [place] [address] CBC W/PLT COUNT & AUTO [id number] 06:31:00 Test Item Value Reference Range Comments WHITE BLOOD CELL COUNT (BEAKER) (test dzqp=536) 12.7 K/ L 3.5-10.5 RED BLOOD CELL COUNT (BEAKER) (test zfnt=186) 3.58 M/ L 3.93-5.22 HEMOGLOBIN (BEAKER) (test mrne=725) 9.7 GM/DL 11.2-15.7 HEMATOCRIT (BEAKER) (test ylwq=482) 31.8 % 34.1-44.9 MEAN CORPUSCULAR VOLUME (BEAKER) (test hkmb=635) 88.8 fL 79.4-94.8 MEAN CORPUSCULAR HEMOGLOBIN (BEAKER) (test 27.1 pg 25.6-32.2 yvqx=841) MEAN CORPUSCULAR HEMOGLOBIN CONC (BEAKER) (test 30.5 GM/DL 32.2-35.5 ibdy=113) RED CELL DISTRIBUTION WIDTH (BEAKER) (test 16.4 % 11.7-14.4 jujd=977) PLATELET COUNT (BEAKER) (test ylns=428) 258 K/CU MM 150-450 MEAN PLATELET VOLUME (BEAKER) (test zfop=202) 11.5 fL 9.4-12.3 NUCLEATED RED BLOOD CELLS (BEAKER) (test 0 /100 WBC 0-0 vhmg=777) NEUTROPHILS RELATIVE PERCENT (BEAKER) (test 72 % regq=501) LYMPHOCYTES RELATIVE PERCENT (BEAKER) (test 15 % zvlw=428) MONOCYTES RELATIVE PERCENT (BEAKER) (test 9 % dory=026) EOSINOPHILS RELATIVE PERCENT (BEAKER) (test 3 % nrli=986) BASOPHILS RELATIVE PERCENT (BEAKER) (test 0 % kvdg=503) NEUTROPHILS ABSOLUTE COUNT (BEAKER) (test 9.17 K/ L 1.56-6.13 czvt=768) LYMPHOCYTES ABSOLUTE COUNT (BEAKER) (test 1.96 K/ L 1.18-3.74 ftgz=232) MONOCYTES ABSOLUTE COUNT (BEAKER) (test 1.12 K/ L 0.24-0.36 tklh=329) EOSINOPHILS ABSOLUTE COUNT (BEAKER) (test 0.32 K/ L 0.04-0.36 yxzr=836) BASOPHILS ABSOLUTE COUNT (BEAKER) (test 0.02 K/ L 0.01-0.08 iahe=410) IMMATURE GRANULOCYTES-RELATIVE PERCENT (BEAKER) 1 % 0-1 (test gpjq=2986) POCT-GLUCOSE [id number] 02:22:00 Test Item Value Reference Range Comments POC-GLUCOSE METER (BEAKER) 354 mg/dL 70-110 TESTED AT [address] (test wdui=7231) [facility] [address] POCT-GLUCOSE [id number] 22:38:00 Test Item Value Reference Range Comments POC-GLUCOSE METER (BEAKER) 224 mg/dL 70-110 TESTED AT [address] (test hupi=7117) [facility] [address] POCT-GLUCOSE [id number] 21:24:00 Test Item Value Reference Range Comments POC-GLUCOSE METER (BEAKER) 349 mg/dL 70-110 TESTED AT [address] (test uakb=0388) [facility] [address] POCT-GLUCOSE [id number] 18:45:00 Test Item Value Reference Range Comments POC-GLUCOSE METER (BEAKER) 264 mg/dL 70-110 TESTED AT [address] (test vqhw=9564) [facility] [address] POCT-GLUCOSE [id number] 15:48:00 Test Item Value Reference Range Comments POC-GLUCOSE METER (BEAKER) 191 mg/dL 70-110 TESTED AT [address] (test hbyi=8247) [facility] [address] POCT-GLUCOSE [id number] 15:17:00 Test Item Value Reference Range Comments POC-GLUCOSE METER (BEAKER) 111 mg/dL 70-110 TESTED AT [address] (test rscv=2279) [facility] [address] POCT-GLUCOSE [id number] 11:13:00 Test Item Value Reference Range Comments POC-GLUCOSE METER (BEAKER) 297 mg/dL 70-110 TESTED AT [address] (test xxyr=6267) [facility] [address] POCT-GLUCOSE [id number] 08:10:00 Test Item Value Reference Range Comments POC-GLUCOSE METER (BEAKER) 221 mg/dL 70-110 TESTED AT [address] (test hfuk=6016) [facility] [address] [id number] 05:11:00 Test Item Value Reference Range Comments PHOSPHORUS (BEAKER) (test lqby=639) 4.0 mg/dL 2.3-4.7 [id number] 05:11:00 Test Item Value Reference Range Comments MAGNESIUM (BEAKER) (test szlh=162) 1.6 mg/dL 1.6-2.6 COMPREHENSIVE METABOLIC [id number] 05:11:00 Test Item Value Reference Range Comments TOTAL PROTEIN (BEAKER) 6.1 gm/dL 6.0-8.3 (test vylz=313) ALBUMIN (BEAKER) (test 2.9 g/dL 3.5-5.0 uvkj=1361) ALKALINE PHOSPHATASE 87 U/L 40-150 (BEAKER) (test uynb=237) BILIRUBIN TOTAL (BEAKER) 0.1 mg/dL 0.2-1.2 (test mgbt=041) SODIUM (BEAKER) (test 140 meq/L 136-145 dtwi=068) POTASSIUM (BEAKER) (test 5.5 meq/L 3.5-5.1 hgaf=024) CHLORIDE (BEAKER) (test 97 meq/L 98-107 iwwl=396) CO2 (BEAKER) (test 35 meq/L 22-29 ptaf=211) BLOOD UREA NITROGEN 27 mg/dL 7-21 (BEAKER) (test dytx=090) CREATININE (BEAKER) (test 0.72 mg/dL 0.57-1.25 viqd=229) GLUCOSE RANDOM (BEAKER) 219 mg/dL 70-105 (test ovpn=930) CALCIUM (BEAKER) (test 8.5 mg/dL 8.4-10.2 xvqx=239) AST (SGOT) (BEAKER) (test 80 U/L 5-34 roqi=477) ALT (SGPT) (BEAKER) (test 75 U/L 6-55 fccg=068) EGFR (BEAKER) (test 119 mL/min/1.73 sq ESTIMATED GFR IS NOT lzia=8615) m ACCURATE CREATININE CLEARANCE IN PREDICTING GLOMERULAR FILTRATION RATE. ESTIMATED GFR IS NOT APPLICABLE FOR DIALYSIS PATIENTS. CBC W/PLT COUNT & AUTO [id number] 04:57:00 Test Item Value Reference Range Comments WHITE BLOOD CELL COUNT (BEAKER) (test bnoa=572) 13.8 K/ L 3.5-10.5 RED BLOOD CELL COUNT (BEAKER) (test bxuo=783) 3.77 M/ L 3.93-5.22 HEMOGLOBIN (BEAKER) (test vibx=630) 10.0 GM/DL 11.2-15.7 HEMATOCRIT (BEAKER) (test pvyl=065) 33.7 % 34.1-44.9 MEAN CORPUSCULAR VOLUME (BEAKER) (test hxra=437) 89.4 fL 79.4-94.8 MEAN CORPUSCULAR HEMOGLOBIN (BEAKER) (test 26.5 pg 25.6-32.2 mlyz=627) MEAN CORPUSCULAR HEMOGLOBIN CONC (BEAKER) (test 29.7 GM/DL 32.2-35.5 wulh=573) RED CELL DISTRIBUTION WIDTH (BEAKER) (test 16.3 % 11.7-14.4 tblr=568) PLATELET COUNT (BEAKER) (test ndsk=743) 309 K/CU MM 150-450 MEAN PLATELET VOLUME (BEAKER) (test yfrv=249) 11.6 fL 9.4-12.3 NUCLEATED RED BLOOD CELLS (BEAKER) (test 0 /100 WBC 0-0 mzby=559) NEUTROPHILS RELATIVE PERCENT (BEAKER) (test 72 % nimq=971) LYMPHOCYTES RELATIVE PERCENT (BEAKER) (test 15 % bvoy=524) MONOCYTES RELATIVE PERCENT (BEAKER) (test 8 % eqyo=259) EOSINOPHILS RELATIVE PERCENT (BEAKER) (test 4 % epjt=896) BASOPHILS RELATIVE PERCENT (BEAKER) (test 0 % gwos=432) NEUTROPHILS ABSOLUTE COUNT (BEAKER) (test 9.92 K/ L 1.56-6.13 snxc=307) LYMPHOCYTES ABSOLUTE COUNT (BEAKER) (test 2.08 K/ L 1.18-3.74 kmfr=613) MONOCYTES ABSOLUTE COUNT (BEAKER) (test 1.15 K/ L 0.24-0.36 imbq=118) EOSINOPHILS ABSOLUTE COUNT (BEAKER) (test 0.49 K/ L 0.04-0.36 zqpz=571) BASOPHILS ABSOLUTE COUNT (BEAKER) (test 0.01 K/ L 0.01-0.08 anyq=280) IMMATURE GRANULOCYTES-RELATIVE PERCENT (BEAKER) 1 % 0-1 (test clbq=4610) [id number] 02:54:00 Test Item Value Reference Range Comments PROCALCITONIN (BEAKER) (test cnaf=8312) 0.07 ng/mL <0.05 SEPSIS RISK (ng/mL)Low: 0.05-0.50Intermediate: 0.51-2.00High: & gt;=2.01POCT-GLUCOSE [id number] 01:59:00 Test Item Value Reference Range Comments POC-GLUCOSE METER (BEAKER) 265 mg/dL 70-110 TESTED AT [address] (test ztbo=3194) [facility] [address] POCT-GLUCOSE [id number] 21:36:00 Test Item Value Reference Range Comments POC-GLUCOSE METER (BEAKER) 256 mg/dL 70-110 TESTED AT [address] (test ioee=7271) [place] [id number] CT, BRAIN, WITHOUT [id number] 20:55:00FINAL REPORT CT, BRAIN, WITHOUT CONTRAST CLINICAL INDICATION: Confusion/delirium, altered LOC, unexplained COMPARISON: March 24, 2017 TECHNIQUE: Noncontrast axial CT imaging of the brain and skull. DOSE REDUCTION: Dose modulation, iterative reconstruction, and/or weight-based adjustment of the mA/kV was utilized to reduce the radiation dose to as low as reasonably achievable. FINDINGS:No intracranial hemorrhage, midline shift or mass effect. Midline structures are normally developed. No hydrocephalus. Orbits are within normal limits. No obstructive paranasal sinus disease. IMPRESSION: No acute intracranial findings Signed: Kacie Armentaort Verified Date/Time: 09/30/2018 20:55:31 Reading Location: [facility] C0[facility] Neuro Reading Room COMPREHENSIVE METABOLIC [id number] 20:21:00 Test Item Value Reference Range Comments TOTAL PROTEIN (BEAKER) 6.6 gm/dL 6.0-8.3 (test qpfg=859) ALBUMIN (BEAKER) (test 3.0 g/dL 3.5-5.0 dowj=8498) ALKALINE PHOSPHATASE 93 U/L 40-150 (BEAKER) (test gbga=965) BILIRUBIN TOTAL (BEAKER) 0.1 mg/dL 0.2-1.2 (test skab=765) SODIUM (BEAKER) (test 134 meq/L 136-145 puth=059) POTASSIUM (BEAKER) (test 5.9 meq/L 3.5-5.1 dtyf=455) CHLORIDE (BEAKER) (test 94 meq/L 98-107 yawn=195) CO2 (BEAKER) (test 29 meq/L 22-29 xpek=725) BLOOD UREA NITROGEN 29 mg/dL 7-21 (BEAKER) (test warn=764) CREATININE (BEAKER) (test 0.97 mg/dL 0.57-1.25 ikpg=472) GLUCOSE RANDOM (BEAKER) 556 mg/dL 70-105 (test fucc=695) CALCIUM (BEAKER) (test 8.3 mg/dL 8.4-10.2 bnvw=408) AST (SGOT) (BEAKER) (test 71 U/L 5-34 bzfo=820) ALT (SGPT) (BEAKER) (test 71 U/L 6-55 cbkx=797) EGFR (BEAKER) (test 84 mL/min/1.73 sq m ESTIMATED GFR IS NOT tvkg=7963) ACCURATE CREATININE CLEARANCE IN PREDICTING GLOMERULAR FILTRATION RATE. ESTIMATED GFR IS NOT APPLICABLE FOR DIALYSIS PATIENTS. HCG, QUANTITATIVE, [id number] 18:38:00 Test Item Value Reference Range Comments GONADOTROPIN, CHORIONIC (HCG) QUANT (BEAKER) (test < mIU/mL 0-10 cdux=714) Non- Females: <10 mIU/mL Females: Gestation Age Reference Range(mIU/mL) 0.2-1 Week 5-50 1-2 Weeks 50-500 2-3 Weeks 100-5,000 3-4Weeks 500-10,000 4 -5 Weeks 1,000-50,000 5-6 Weeks 10,000-100,000 6-8 Weeks 15,000-200,000 2-3 Months 10,000-100,000U/S, RENAL, [id number] 17:21:00Reason for exam:->Hypertension, AKIShould this be performed at the bedside?->YesFINAL REPORT Renal ultrasound Clinical History: Hypertension, acute kidney injury Discussion:Sonographic evaluation of the kidneys is performed. The right kidney is normal in size measuring 10.0 x 4.2 x 4.5 cm with cortical thickness of 1.3 cm. Cortical echogenicity is within normal limits. There is no evidence for solid renal mass , hydronephrosis, or shadowing calculi. The main renal artery and vein are patent. The left kidney is normal in size measuring 9.3 x 5.3 x 4.2 cm with cortical thickness of 1.2 cm. Cortical echogenicity is within normal limits. There is no evidencefor solid renal mass, hydronephrosis, or shadowing calculi. The main renal artery and vein are patent. The urinary bladder is grossly unremarkable. Impression: Unremarkable renal ultrasound examination. Signed: Bryan Davison MDReport Verified Date/Time: 09/30/2018 17:21:03 Reading Location : [address] Ultrasound Reading Room RAD, CHEST, 1 VIEW, NON [id number] 17:18: 00Reason for exam:->assess port placementShould this be performed at the bedside?->YesFINAL REPORT History: Cystic fibrosis. Port placement. FINDINGS: Chest, two views Compared with September 29, 2018, the heart and mediastinum are stable. Diffuse lung injury and scarring consistent with the patient's history of cystic fibrosis are noted and appear unchanged. No new areas of focal consolidation. No visible effusions or pneumothorax. The heart and mediastinum are stable. Right chest port position is unchanged. As before, the port lies in expected position with itstip near the cavoatrial junction. Bones are unremarkable. IMPRESSION: 1. Chronic lung abnormality consistent with patient's history of cystic fibrosis, unchanged. 2. Right chest port appears in expected position. No pneumothorax. Signed: Flip Qureshi Verified Date/Time: 09/30/2018 17:18:52 Reading Location: [facility] Diagnostic Imaging Reading Room - [place] [id number] 1120 POCT-GLUCOSE [id number] 17:15:00 Test Item Value Reference Range Comments POC-GLUCOSE METER (BEAKER) > mg/dL 70-110 OUTSIDE MEASURING RANGETESTED AT (test onvp=3657) [facility] [address] [facility] [address] U/S, ABDOMINAL, [id number] 15:35:00Abdomen limited area? Add comment if clarification is needed.->Liverhypoglycemia Reason for exam:->looking for cirrhosis.FINAL REPORT Right Upper Quadrant Ultrasound Clinical Diagnosis: Abdominal distention cystic fibrosis Comparison: March 2018 Technique: Multiple transaxial and longitudinal images were obtained through the right upper quadrant with real time ultrasonography. Five mHz transducerwas utilized. 64 images were submitted for interpretation. Report: Liver: The liver measures 15.3 cmin the right midaxillary line. There are no focal masses. The echogenicity is heterogeneous and increased.Gallbladder: The transverse diameter is 0.7 cm. The wall measures three mm. There are no shadowing stones visualized. The gallbladder is contracted Biliary tree: There is no evidence of intra or extra hepatic biliary ductal dilatation. The common bile duct measures five mm.Portal vein: Theportal vein measures 10 mm. Ascites: NegativePleural Effusion: NegativeRight kidney: The right kidney measures 10.4 cm in length without evidence of hydronephrosis.Aorta and IVC: Midline abdominal structures and not well visualized. Maximum transverse dimension of the aorta is 1.9 cm proximally Impression:Contracted gallbladder.As compared to the prior study the echogenicity within the liver hasminimally increased suggesting fatty infiltration. Signed: Sravanthi Flores Verified Date/Time: 09/30/2018 15:35:23 Reading Location: [facility] [id number] Ultrasound Reading Room Electronically signed by: SRAVANTHI FLORES M.D. on 04/2018 03:35 PMCBC W/PLT COUNT & AUTO [id number] 15:30:00 Test Item Value Reference Range Comments WHITE BLOOD CELL COUNT (BEAKER) (test hyii=961) 18.4 K/ L 3.5-10.5 RED BLOOD CELL COUNT (BEAKER) (test dksf=763) 3.82 M/ L 3.93-5.22 HEMOGLOBIN (BEAKER) (test qtlu=267) 10.1 GM/DL 11.2-15.7 HEMATOCRIT (BEAKER) (test odsm=765) 33.9 % 34.1-44.9 MEAN CORPUSCULAR VOLUME (BEAKER) (test ting=871) 88.7 fL 79.4-94.8 MEAN CORPUSCULAR HEMOGLOBIN (BEAKER) (test 26.4 pg 25.6-32.2 gqiy=367) MEAN CORPUSCULAR HEMOGLOBIN CONC (BEAKER) (test 29.8 GM/DL 32.2-35.5 mjny=831) RED CELL DISTRIBUTION WIDTH (BEAKER) (test 16.7 % 11.7-14.4 snny=598) PLATELET COUNT (BEAKER) (test srxz=594) 337 K/CU MM 150-450 MEAN PLATELET VOLUME (BEAKER) (test xakq=738) 12.0 fL 9.4-12.3 NUCLEATED RED BLOOD CELLS (BEAKER) (test 0 /100 WBC 0-0 zgha=872) NEUTROPHILS RELATIVE PERCENT (BEAKER) (test 91 % nvyl=826) LYMPHOCYTES RELATIVE PERCENT (BEAKER) (test 4 % iptu=832) MONOCYTES RELATIVE PERCENT (BEAKER) (test 3 % rnwp=708) EOSINOPHILS RELATIVE PERCENT (BEAKER) (test 2 % jgnw=750) BASOPHILS RELATIVE PERCENT (BEAKER) (test 0 % swxd=322) NEUTROPHILS ABSOLUTE COUNT (BEAKER) (test 16.67 K/ L 1.56-6.13 ycgj=768) LYMPHOCYTES ABSOLUTE COUNT (BEAKER) (test 0.73 K/ L 1.18-3.74 ihht=272) MONOCYTES ABSOLUTE COUNT (BEAKER) (test 0.47 K/ L 0.24-0.36 wmzj=508) EOSINOPHILS ABSOLUTE COUNT (BEAKER) (test 0.30 K/ L 0.04-0.36 vpbh=835) BASOPHILS ABSOLUTE COUNT (BEAKER) (test 0.02 K/ L 0.01-0.08 uvdg=230) IMMATURE GRANULOCYTES-RELATIVE PERCENT (BEAKER) 1 % 0-1 (test axdc=7965) COMPREHENSIVE METABOLIC [id number] 14:42:00 Test Item Value Reference Range Comments TOTAL PROTEIN (BEAKER) 6.8 gm/dL 6.0-8.3 Specimen slightly (test nldr=280) hemolyzed ALBUMIN (BEAKER) (test 3.0 g/dL 3.5-5.0 Specimen slightly acsd=9958) hemolyzed ALKALINE PHOSPHATASE 95 U/L 40-150 (BEAKER) (test cuiv=688) BILIRUBIN TOTAL (BEAKER) 0.2 mg/dL 0.2-1.2 Specimen slightly (test mnzd=808) hemolyzed SODIUM (BEAKER) (test 132 meq/L 136-145 zvoc=348) POTASSIUM (BEAKER) (test 6.7 meq/L 3.5-5.1 Specimen slightly pbyl=849) hemolyzed CHLORIDE (BEAKER) (test 94 meq/L 98-107 srnl=792) CO2 (BEAKER) (test 30 meq/L 22-29 bpre=424) BLOOD UREA NITROGEN 28 mg/dL 7-21 (BEAKER) (test fdbc=355) CREATININE (BEAKER) (test 0.90 mg/dL 0.57-1.25 Specimen slightly vfbs=119) hemolyzed GLUCOSE RANDOM (BEAKER) 519 mg/dL 70-105 (test esoj=833) CALCIUM (BEAKER) (test 8.1 mg/dL 8.4-10.2 xpkc=189) AST (SGOT) (BEAKER) (test 148 U/L 5-34 Specimen slightly jznt=958) hemolyzed ALT (SGPT) (BEAKER) (test 76 U/L 6-55 Specimen slightly hvfx=393) hemolyzed EGFR (BEAKER) (test 92 mL/min/1.73 sq m ESTIMATED GFR IS NOT jply=4811) ACCURATE CREATININE CLEARANCE IN PREDICTING GLOMERULAR FILTRATION RATE. ESTIMATED GFR IS NOT APPLICABLE FOR DIALYSIS PATIENTS. CBC W/PLT COUNT & AUTO [id number] 14:27:00 Test Item Value Reference Range Comments WHITE BLOOD CELL COUNT (BEAKER) (test wbsw=743) 19.9 K/ L 3.5-10.5 RED BLOOD CELL COUNT (BEAKER) (test ywua=227) 3.79 M/ L 3.93-5.22 HEMOGLOBIN (BEAKER) (test huqy=899) 10.2 GM/DL 11.2-15.7 HEMATOCRIT (BEAKER) (test srwn=784) 34.1 % 34.1-44.9 MEAN CORPUSCULAR VOLUME (BEAKER) (test glsj=216) 90.0 fL 79.4-94.8 MEAN CORPUSCULAR HEMOGLOBIN (BEAKER) (test 26.9 pg 25.6-32.2 rnwb=307) MEAN CORPUSCULAR HEMOGLOBIN CONC (BEAKER) (test 29.9 GM/DL 32.2-35.5 ayez=959) RED CELL DISTRIBUTION WIDTH (BEAKER) (test 16.2 % 11.7-14.4 gzow=929) PLATELET COUNT (BEAKER) (test hxgg=835) 288 K/CU MM 150-450 MEAN PLATELET VOLUME (BEAKER) (test duwz=233) 11.9 fL 9.4-12.3 NUCLEATED RED BLOOD CELLS (BEAKER) (test 0 /100 WBC 0-0 qycx=891) NEUTROPHILS RELATIVE PERCENT (BEAKER) (test 91 % cwll=106) LYMPHOCYTES RELATIVE PERCENT (BEAKER) (test 4 % ahqu=014) MONOCYTES RELATIVE PERCENT (BEAKER) (test 3 % kczj=797) EOSINOPHILS RELATIVE PERCENT (BEAKER) (test 2 % dcdu=565) BASOPHILS RELATIVE PERCENT (BEAKER) (test 0 % bdov=656) NEUTROPHILS ABSOLUTE COUNT (BEAKER) (test 18.05 K/ L 1.56-6.13 wbsh=224) LYMPHOCYTES ABSOLUTE COUNT (BEAKER) (test 0.69 K/ L 1.18-3.74 odvh=407) MONOCYTES ABSOLUTE COUNT (BEAKER) (test 0.54 K/ L 0.24-0.36 fvxr=711) EOSINOPHILS ABSOLUTE COUNT (BEAKER) (test 0.38 K/ L 0.04-0.36 viuh=992) BASOPHILS ABSOLUTE COUNT (BEAKER) (test 0.02 K/ L 0.01-0.08 hyyj=804) IMMATURE GRANULOCYTES-RELATIVE PERCENT (BEAKER) 1 % 0-1 (test pnev=2628) POCT-GLUCOSE [id number] 13:56:00 Test Item Value Reference Range Comments POC-GLUCOSE METER (BEAKER) 406 mg/dL 70-110 TESTED AT [address] (test tfmg=2557) [facility] [address] POCT-GLUCOSE [id number] 12:35:00 Test Item Value Reference Range Comments POC-GLUCOSE METER (BEAKER) 122 mg/dL 70-110 TESTED AT [address] (test mfwa=6434) [facility] [address] POCT-GLUCOSE [id number] 12:04:00 Test Item Value Reference Range Comments POC-GLUCOSE METER (BEAKER) 67 mg/dL 70-110 Will Repeat Test/TESTED AT (test xqzi=4025) [address] [address] POCT-GLUCOSE [id number] 11:01:00 Test Item Value Reference Range Comments POC-GLUCOSE METER (BEAKER) 196 mg/dL 70-110 TESTED AT [address] (test wtpr=7161) [facility] [address] POCT-GLUCOSE [id number] 10:15:00 Test Item Value Reference Range Comments POC-GLUCOSE METER (BEAKER) 210 mg/dL 70-110 TESTED AT [address] (test fyik=6740) [facility] [address] POCT-GLUCOSE [id number] 09:49:00 Test Item Value Reference Range Comments POC-GLUCOSE METER (BEAKER) 137 mg/dL 70-110 TESTED AT [address] (test spvz=3153) [facility] [address] POCT-GLUCOSE [id number] 08:42:00 Test Item Value Reference Range Comments POC-GLUCOSE METER (BEAKER) 22 mg/dL 70-110 Will Repeat Test/TESTED AT (test agrm=0793) [address] [address] POCT-GLUCOSE [id number] 06:34:00 Test Item Value Reference Range Comments POC-GLUCOSE METER (BEAKER) 123 mg/dL 70-110 TESTED AT [address] (test towe=0521) [facility] [address] POCT-GLUCOSE [id number] 05:17:00 Test Item Value Reference Range Comments POC-GLUCOSE METER (BEAKER) 257 mg/dL 70-110 TESTED AT [address] (test auzr=4852) [facility] [address] POCT-GLUCOSE [id number] 04:33:00 Test Item Value Reference Range Comments POC-GLUCOSE METER (BEAKER) 197 mg/dL 70-110 TESTED AT [address] (test ygpz=2292) [facility] [address] POCT-GLUCOSE [id number] 04:04:00 Test Item Value Reference Range Comments POC-GLUCOSE METER (BEAKER) 48 mg/dL 70-110 TESTED AT [address] (test giff=1153) [facility] [address] POCT-GLUCOSE [id number] 03:44:00 Test Item Value Reference Range Comments POC-GLUCOSE METER (BEAKER) 62 mg/dL 70-110 TESTED AT [address] (test lrtc=3071) [facility] [address] POCT-GLUCOSE [id number] 02:42:00 Test Item Value Reference Range Comments POC-GLUCOSE METER (BEAKER) 43 mg/dL 70-110 Notified JORDON STAPLETON/TESTED AT [facility] (test ntsf=7775) [address] [place] [address] POCT-GLUCOSE [id number] 02:10:00 Test Item Value Reference Range Comments POC-GLUCOSE METER (BEAKER) 73 mg/dL 70-110 TESTED AT [address] (test qckm=9074) [facility] [address] POCT-GLUCOSE [id number] 00:59:00 Test Item Value Reference Range Comments POC-GLUCOSE METER (BEAKER) 222 mg/dL 70-110 TESTED AT [address] (test tjql=8535) [facility] [address] POCT-GLUCOSE [id number] 23:57:00 Test Item Value Reference Range Comments POC-GLUCOSE METER (BEAKER) 314 mg/dL 70-110 TESTED AT [address] (test wvdg=6064) [facility] [address] POCT-GLUCOSE [id number] 22:42:00 Test Item Value Reference Range Comments POC-GLUCOSE METER (BEAKER) 197 mg/dL 70-110 TESTED AT [address] (test yjfc=3436) [facility] [address] POCT-GLUCOSE [id number] 21:38:00 Test Item Value Reference Range Comments POC-GLUCOSE METER (BEAKER) 153 mg/dL 70-110 TESTED AT [address] (test lrdp=6388) [facility] [address] POCT-GLUCOSE [id number] 20:44:00 Test Item Value Reference Range Comments POC-GLUCOSE METER (BEAKER) 164 mg/dL 70-110 TESTED AT [address] (test ymck=9737) [facility] [address] POCT-GLUCOSE [id number] 19:15:00 Test Item Value Reference Range Comments POC-GLUCOSE METER (BEAKER) 186 mg/dL 70-110 TESTED AT [address] (test qoii=9770) [facility] [address] POCT-GLUCOSE [id number] 18:06:00 Test Item Value Reference Range Comments POC-GLUCOSE METER (BEAKER) 215 mg/dL 70-110 TESTED AT [address] (test wned=5894) [facility] [address] POCT-GLUCOSE [id number] 17:31:00 Test Item Value Reference Range Comments POC-GLUCOSE METER (BEAKER) 116 mg/dL 70-110 TESTED AT [address] (test amhl=1180) [place] [address] POCT-GLUCOSE [id number] 15:46:00 Test Item Value Reference Range Comments POC-GLUCOSE METER (BEAKER) 311 mg/dL 70-110 Notified JORDON STAPLETON/TESTED AT [facility] (test tsav=6515) [address] [place] [address] POCT-GLUCOSE [id number] 14:37:00 Test Item Value Reference Range Comments POC-GLUCOSE METER (BEAKER) 306 mg/dL 70-110 Notified JORDON STAPLETON/TESTED AT [facility] (test sqfq=1848) [address] [place] [address] POCT-GLUCOSE [id number] 14:07:00 Test Item Value Reference Range Comments POC-GLUCOSE METER (BEAKER) 326 mg/dL 70-110 Patient on insulin Drip/TESTED (test ywxv=5093) AT [address] [address] POCT-GLUCOSE [id number] 12:52:00 Test Item Value Reference Range Comments POC-GLUCOSE METER (BEAKER) 360 mg/dL 70-110 Patient on insulin Drip/TESTED (test hmqt=3959) AT [place] [id number] POCT-GLUCOSE [id number] 11:24:00 Test Item Value Reference Range Comments POC-GLUCOSE METER (BEAKER) 366 mg/dL 70-110 Notified JORDON STAPLETON/TESTED AT [facility] (test zsnw=4140) [address] [place], [place] [id number] RAD, CHEST, 1 VIEW, NON [id number] 10:40:00Reason for exam:->pulm cystic fibrosisShould this be performed at the bedside?->YesFINAL REPORT Chest one view. Clinical history: pulm cystic fibrosis Comparison : September 22, 2018 Discussion: A frontal chest is provided. Cardiomediastinal contours are unchanged. Right Port-A-Cath is in stable position. Interstitial opacities and bronchiectasis with upper lung zone predominance is in keeping with history of cystic fibrosis. No definite new consolidation isidentified. There is no evidence of pulmonary edema, pneumothorax, or significant effusion. Osseous structures are intact. Signed: Everardo Castellanos Verified Date/Time: 10:40:52 Reading Location: [facility] Radiology Reading Room POCT-GLUCOSE [id number] 10:18:00 Test Item Value Reference Range Comments POC-GLUCOSE METER (BEAKER) 299 mg/dL 70-110 TESTED AT [address] (test sqrt=9941) [place] [address] POCT-GLUCOSE [id number] 09:42:00 Test Item Value Reference Range Comments POC-GLUCOSE METER (BEAKER) 146 mg/dL 70-110 TESTED AT [address] (test ztrm=9809) [place] [address] POCT-GLUCOSE [id number] 09:01:00 Test Item Value Reference Range Comments POC-GLUCOSE METER (BEAKER) 97 mg/dL 70-110 TESTED AT [address] (test zbgr=6287) [place] [address] POCT-GLUCOSE [id number] 07:56:00 Test Item Value Reference Range Comments POC-GLUCOSE METER (BEAKER) 144 mg/dL 70-110 TESTED AT [address] (test lttp=0752) [place] [address] POCT-GLUCOSE [id number] 06:34:00 Test Item Value Reference Range Comments POC-GLUCOSE METER (BEAKER) 231 mg/dL 70-[address] [facility] [address] [facility] (test ezoh=8479) [facility] [address] POCT-GLUCOSE [id number] 05:35:00 Test Item Value Reference Range Comments POC-GLUCOSE METER (BEAKER) 330 mg/dL 70-110 Notified JORDON STAPLETON/TESTED AT [facility] (test omgg=2555) [address] [place] [address] POCT-GLUCOSE [id number] 04:31:00 Test Item Value Reference Range Comments POC-GLUCOSE METER (BEAKER) 291 mg/dL 70-110 TESTED AT [address] (test slfh=2675) [facility] [address] POCT-GLUCOSE [id number] 04:00:00 Test Item Value Reference Range Comments POC-GLUCOSE METER (BEAKER) 246 mg/dL 70-110 TESTED AT [address] (test uqoy=5869) [facility] [address] TSH/FREE T4 IF [id number] 03:14:00 Test Item Value Reference Range Comments THYROID STIMULATING HORMONE (BEAKER) (test 1.25 uIU/mL 0.35-4.94 bmzz=605) COMPREHENSIVE METABOLIC [id number] 02:54:00 Test Item Value Reference Range Comments TOTAL PROTEIN (BEAKER) 6.5 gm/dL 6.0-8.3 (test mpdq=984) ALBUMIN (BEAKER) (test 2.9 g/dL 3.5-5.0 nqql=9351) ALKALINE PHOSPHATASE 99 U/L 40-150 (BEAKER) (test ijfs=676) BILIRUBIN TOTAL (BEAKER) 0.1 mg/dL 0.2-1.2 (test xexq=157) SODIUM (BEAKER) (test 136 meq/L 136-145 bmma=242) POTASSIUM (BEAKER) (test 5.0 meq/L 3.5-5.1 uaxa=474) CHLORIDE (BEAKER) (test 97 meq/L 98-107 jvre=600) CO2 (BEAKER) (test 29 meq/L 22-29 ilgp=764) BLOOD UREA NITROGEN 32 mg/dL 7-21 (BEAKER) (test tqaw=490) CREATININE (BEAKER) (test 1.05 mg/dL 0.57-1.25 anyf=218) GLUCOSE RANDOM (BEAKER) 234 mg/dL 70-105 (test tcwe=203) CALCIUM (BEAKER) (test 8.6 mg/dL 8.4-10.2 trbu=204) AST (SGOT) (BEAKER) (test 19 U/L 5-34 gamh=716) ALT (SGPT) (BEAKER) (test 30 U/L 6-55 vgbq=495) EGFR (BEAKER) (test 77 mL/min/1.73 sq m ESTIMATED GFR IS NOT qvyw=1110) ACCURATE CREATININE CLEARANCE IN PREDICTING GLOMERULAR FILTRATION RATE. ESTIMATED GFR IS NOT APPLICABLE FOR DIALYSIS PATIENTS. CBC W/PLT COUNT & AUTO [id number] 02:37:00 Test Item Value Reference Range Comments WHITE BLOOD CELL COUNT (BEAKER) (test pgdc=412) 16.5 K/ L 3.5-10.5 RED BLOOD CELL COUNT (BEAKER) (test ffyt=401) 3.82 M/ L 3.93-5.22 HEMOGLOBIN (BEAKER) (test xalk=660) 10.2 GM/DL 11.2-15.7 HEMATOCRIT (BEAKER) (test bqko=048) 33.5 % 34.1-44.9 MEAN CORPUSCULAR VOLUME (BEAKER) (test aney=499) 87.7 fL 79.4-94.8 MEAN CORPUSCULAR HEMOGLOBIN (BEAKER) (test 26.7 pg 25.6-32.2 xpbe=352) MEAN CORPUSCULAR HEMOGLOBIN CONC (BEAKER) (test 30.4 GM/DL 32.2-35.5 kcrn=239) RED CELL DISTRIBUTION WIDTH (BEAKER) (test 15.5 % 11.7-14.4 jtmc=736) PLATELET COUNT (BEAKER) (test ulbl=719) 321 K/CU MM 150-450 MEAN PLATELET VOLUME (BEAKER) (test mkpc=588) 11.6 fL 9.4-12.3 NUCLEATED RED BLOOD CELLS (BEAKER) (test 0 /100 WBC 0-0 bjnr=407) NEUTROPHILS RELATIVE PERCENT (BEAKER) (test 84 % bvle=905) LYMPHOCYTES RELATIVE PERCENT (BEAKER) (test 6 % dyyj=314) MONOCYTES RELATIVE PERCENT (BEAKER) (test 8 % aciy=151) EOSINOPHILS RELATIVE PERCENT (BEAKER) (test 0 % zjuo=125) BASOPHILS RELATIVE PERCENT (BEAKER) (test 0 % vxxx=939) NEUTROPHILS ABSOLUTE COUNT (BEAKER) (test 13.76 K/ L 1.56-6.13 homg=383) LYMPHOCYTES ABSOLUTE COUNT (BEAKER) (test 1.00 K/ L 1.18-3.74 pwqq=860) MONOCYTES ABSOLUTE COUNT (BEAKER) (test 1.37 K/ L 0.24-0.36 urvx=100) EOSINOPHILS ABSOLUTE COUNT (BEAKER) (test 0.05 K/ L 0.04-0.36 gwtf=005) BASOPHILS ABSOLUTE COUNT (BEAKER) (test 0.03 K/ L 0.01-0.08 yzaf=379) IMMATURE GRANULOCYTES-RELATIVE PERCENT (BEAKER) 2 % 0-1 (test apca=1630) POCT-GLUCOSE [id number] 02:16:00 Test Item Value Reference Range Comments POC-GLUCOSE METER (BEAKER) 267 mg/dL 70-110 TESTED AT [address] (test gooj=3938) [place] [address] POCT-GLUCOSE [id number] 01:05:00 Test Item Value Reference Range Comments POC-GLUCOSE METER (BEAKER) 350 mg/dL 70-110 TESTED AT [address] (test zchl=8055) [place] [address] POCT-GLUCOSE [id number] 00:18:00 Test Item Value Reference Range Comments POC-GLUCOSE METER (BEAKER) 463 mg/dL 70-110 TESTED AT [address] (test srwu=9441) [place] [address] BASIC METABOLIC [id number] 23:00:00 Test Item Value Reference Range Comments SODIUM (BEAKER) (test 132 meq/L 136-145 dfnw=650) POTASSIUM (BEAKER) (test 6.3 meq/L 3.5-5.1 njdn=074) CHLORIDE (BEAKER) (test 93 meq/L 98-107 rhtq=254) CO2 (BEAKER) (test 31 meq/L 22-29 dbtw=453) BLOOD UREA NITROGEN 31 mg/dL 7-21 (BEAKER) (test iwwg=210) CREATININE (BEAKER) (test 1.51 mg/dL 0.57-1.25 jhao=304) GLUCOSE RANDOM (BEAKER) 611 mg/dL 70-105 (test ioff=634) CALCIUM (BEAKER) (test 8.3 mg/dL 8.4-10.2 ongb=682) EGFR (BEAKER) (test 50 mL/min/1.73 sq m ESTIMATED GFR IS NOT vldo=6437) ACCURATE CREATININE CLEARANCE IN PREDICTING GLOMERULAR FILTRATION RATE. ESTIMATED GFR IS NOT APPLICABLE FOR DIALYSIS PATIENTS. POCT-GLUCOSE [id number] 22:53:00 Test Item Value Reference Range Comments POC-GLUCOSE METER (BEAKER) > mg/dL 70-110 OUTSIDE MEASURING RANGENotified RN (test dtrc=2912) MD/TESTED AT [address] [address] POCT-GLUCOSE [id number] 20:20:00 Test Item Value Reference Range Comments POC-GLUCOSE METER (BEAKER) > mg/dL 70-110 OUTSIDE MEASURING RANGENotified RN (test itrm=7854) MD/TESTED AT [address] [address] POCT-GLUCOSE [id number] 18:29:00 Test Item Value Reference Range Comments POC-GLUCOSE METER (BEAKER) 378 mg/dL 70-110 TESTED AT [address] (test naig=9455) [facility] [address] POCT-GLUCOSE [id number] 16:28:00 Test Item Value Reference Range Comments POC-GLUCOSE METER (BEAKER) 376 mg/dL 70-110 TESTED AT [address] (test fkyc=2907) [facility] [address] POCT-GLUCOSE [id number] 16:06:00 Test Item Value Reference Range Comments POC-GLUCOSE METER (BEAKER) 393 mg/dL 70-110 TESTED AT [address] (test qsko=1315) [facility] [address] POCT-GLUCOSE [id number] 15:50:00 Test Item Value Reference Range Comments POC-GLUCOSE METER (BEAKER) 355 mg/dL 70-110 Notified RN or MD Patient (test kwqc=9028) refused repeat test/TESTED AT [address] [address] POCT-GLUCOSE [id number] 15:21:00 Test Item Value Reference Range Comments POC-GLUCOSE METER (BEAKER) 265 mg/dL 70-110 TESTED AT [address] (test xeag=9402) [facility] [address] POCT-GLUCOSE [id number] 14:41:00 Test Item Value Reference Range Comments POC-GLUCOSE METER (SIMI) 225 mg/dL 70-[address] 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 IVs were placed in both arms. Contrast was injected into each the IV. The relatively small size the IVs limited amount of contrast injected. However, left axillaryvein is patent. 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 On the right, the axillary vein is patent. There is a moderately severe stenosis of the central portion right subclavian vein. The innominate vein appears grossly patent at the superior vena cava is difficult to see. The right common femoral vein was then accessed percutaneouslyand a guidewire and catheter were advanced into the superior vena cava and, subsequently up into a branch likely the thyrocervical vein. 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 Left subclavian vein appears grossly patent patent and the superior vena cava is also patent. Attempts at catheterizing the left innominate vein were unsuccessful as it is occluded. Catheter was then advanced into the right innominate vein and subsequently through the right subclavian vein stenosis to the axillary vein. 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 Eightand then 10 mm in diameter balloon catheters were used to dilate the stenosis. There is some improvement of the stenosis with less filling of the collateral vessels. Moderate residual stenosis persisted but no stent was placed because it would require long-term anticoagulation. 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 Angioplasty of the right subclavian vein as described. Signed: Darrin Hart MDReport Verified Date/Time: 09/28/2018 14:17:02 Reading Location: [facility] P048 Angio Body Reading Room POCT-GLUCOSE [id number] 14:15:00 Test Item Value Reference Range Comments POC-GLUCOSE METER (BEAKER) 230 mg/dL 70-110 TESTED AT [address] (test ifmj=0740) [place] [address] POCT-GLUCOSE [id number] 13:37:00 Test Item Value Reference Range Comments POC-GLUCOSE METER (BEAKER) 238 mg/dL 70-110 TESTED AT [address] (test ebpx=0579) [place] [address] POCT-GLUCOSE [id number] 13:37:00 Test Item Value Reference Range Comments POC-GLUCOSE METER (BEAKER) 294 mg/dL 70-110 TESTED AT [address] (test yiom=4535) [place] [address] POCT-GLUCOSE [id number] 12:55:00 Test Item Value Reference Range Comments POC-GLUCOSE METER (BEAKER) 71 mg/dL 70-110 TESTED AT [address] (test byfm=6919) [place] [address] POCT-GLUCOSE [id number] 12:01:00 Test Item Value Reference Range Comments POC-GLUCOSE METER (BEAKER) 148 mg/dL 70-110 TESTED AT [address] (test pfkm=6871) [place] [address] CBC W/PLT COUNT & AUTO [id number] 11:50:00 Test Item Value Reference Range Comments WHITE BLOOD CELL COUNT (BEAKER) (test iocg=485) 15.3 K/ L 3.5-10.5 RED BLOOD CELL COUNT (BEAKER) (test iszd=242) 3.90 M/ L 3.93-5.22 HEMOGLOBIN (BEAKER) (test brkw=883) 10.4 GM/DL 11.2-15.7 HEMATOCRIT (BEAKER) (test wlyu=772) 34.8 % 34.1-44.9 MEAN CORPUSCULAR VOLUME (BEAKER) (test saie=532) 89.2 fL 79.4-94.8 MEAN CORPUSCULAR HEMOGLOBIN (BEAKER) (test 26.7 pg 25.6-32.2 qlee=317) MEAN CORPUSCULAR HEMOGLOBIN CONC (BEAKER) (test 29.9 GM/DL 32.2-35.5 kevx=611) RED CELL DISTRIBUTION WIDTH (BEAKER) (test 15.8 % 11.7-14.4 pzfo=544) PLATELET COUNT (BEAKER) (test rpvw=805) 303 K/CU MM 150-450 MEAN PLATELET VOLUME (BEAKER) (test rmbd=552) 11.4 fL 9.4-12.3 NUCLEATED RED BLOOD CELLS (BEAKER) (test 0 /100 WBC 0-0 hsvm=405) (CELLAVISION MANUAL DIFF)2018-09-28 11:50:00 Test Item Value Reference Range Comments NEUTROPHILS - REL (CELLAVISION)(BEAKER) (test 79 % dioo=7817) LYMPHOCYTES - REL (CELLAVISION)(BEAKER) (test 11 % nmao=1583) MONOCYTES - REL (CELLAVISION)(BEAKER) (test 10 % zqea=4091) NEUTROPHILS - ABS (CELLAVISION)(BEAKER) (test 12.09 K/ul 1.56-6.13 garw=0900) LYMPHOCYTES - ABS (CELLAVISION)(BEAKER) (test 1.68 K/ul 1.18-3.74 hldm=4144) MONOCYTES - ABS (CELLAVISION)(BEAKER) (test 1.53 K/uL 0.24-0.36 agst=5154) TOTAL COUNTED (BEAKER) (test qjhw=9937) 100 WBC MORPHOLOGY (BEAKER) (test jxqz=190) Normal PLT MORPHOLOGY (BEAKER) (test dbkv=662) Normal POLYCHROMATOPHILLIC RBCS(BEAKER) (test lwne=565) 2+ moderate ANISOCYTOSIS (BEAKER) (test joim=377) 2+ moderate TARGET CELLS (BEAKER) (test qjrk=368) 1+ few ARTIFACT (CELLAVISION)(BEAKER) (test crag=0345) Present PLATELET CONCENTRATION (CELLAVISION)(BEAKER) Adequate (test bpkg=7525) Received comment: User comments: Slide comments:POCT-GLUCOSE [id number] 11: 46:00 Test Item Value Reference Range Comments POC-GLUCOSE METER (BEAKER) 27 mg/dL 70-110 TESTED AT [address] (test metb=6423) [place] [address] POCT-GLUCOSE [id number] 11:46:00 Test Item Value Reference Range Comments POC-GLUCOSE METER (BEAKER) 106 mg/dL 70-110 TESTED AT [address] (test pbqf=6823) [place] [address] POCT-GLUCOSE [id number] 11:46:00 Test Item Value Reference Range Comments POC-GLUCOSE METER (BEAKER) 20 mg/dL 70-110 TESTED AT [address] (test ucnb=2029) [place] [address] POCT-GLUCOSE [id number] 11:46:00 Test Item Value Reference Range Comments POC-GLUCOSE METER (BEAKER) 63 mg/dL 70-110 TESTED AT [address] (test dmau=2933) [place] [address] CF RESPIRATORY [id number] 11:03:00 Test Item Value Reference Range Comments CULTURE (BEAKER) (test PSEUDOMONAS 4+ Pseudomonas shby=2304) AERUGINOSA aeruginosa (MUCOID-PHENOTYPE) (Mucoid-phenotype) Amikacin (test code=1) Susceptible 0-16 , Resistant <0 or >16 Aztreonam (test Susceptible 0-8 , code=32) Resistant <0 or >8 Cefepime (test code=51) Susceptible 0-8 , Resistant <0 or >8 Ceftazidime (test Susceptible 0-8 , code=27) Resistant <0 or >8 Ciprofloxacin (test Susceptible 0-1 , code=7) Resistant <0 or >1 Gentamicin (test Susceptible 0-4 , code=18) Resistant <0 or >4 Levofloxacin (test Susceptible 0-2 , code=22) Resistant <0 or >2 Meropenem (test Susceptible 0-2 , code=34) Resistant <0 or >2 Piperacillin (test Susceptible 0-16 , code=24) Resistant <0 or >16 Piperacillin + Susceptible 0-16 , Tazobactam (test Resistant <0 or >16 code=29) Tobramycin (test Susceptible 0-4 , code=25) Resistant <0 or >4 CULTURE (BEAKER) (test 4+ Pseudomonas xszn=8488) aeruginosa 1+ Normal respiratory derick presentPOCT-GLUCOSE [id number] 09:33:00 Test Item Value Reference Range Comments POC-GLUCOSE METER (BEAKER) 29 mg/dL 70-[address] [facility] [address] [facility] (test vjmm=6334) [facility] [place] [facility] [address] POCT-GLUCOSE [id number] 08:48:00 Test Item Value Reference Range Comments POC-GLUCOSE METER (BEAKER) 134 mg/dL 70-110 TESTED AT [place] [id number] [facility] (test sqpo=9554) [facility] [address] COMPREHENSIVE METABOLIC [id number] 06:31:00 Test Item Value Reference Range Comments TOTAL PROTEIN (BEAKER) 6.4 gm/dL 6.0-8.3 (test nkxv=977) ALBUMIN (BEAKER) (test 2.8 g/dL 3.5-5.0 rkbo=7518) ALKALINE PHOSPHATASE 99 U/L 40-150 (BEAKER) (test zzmx=509) BILIRUBIN TOTAL (BEAKER) 0.1 mg/dL 0.2-1.2 (test zoiw=468) SODIUM (BEAKER) (test 139 meq/L 136-145 vkij=490) POTASSIUM (BEAKER) (test 4.3 meq/L 3.5-5.1 zvud=647) CHLORIDE (BEAKER) (test 103 meq/L 98-107 rlub=635) CO2 (BEAKER) (test 27 meq/L 22-29 ltco=697) BLOOD UREA NITROGEN 25 mg/dL 7-21 (BEAKER) (test yoqy=593) CREATININE (BEAKER) (test 0.71 mg/dL 0.57-1.25 bnqu=896) GLUCOSE RANDOM (BEAKER) 67 mg/dL 70-105 (test gtpz=428) CALCIUM (BEAKER) (test 8.6 mg/dL 8.4-10.2 wriz=210) AST (SGOT) (BEAKER) (test 25 U/L 5-34 fmpr=762) ALT (SGPT) (BEAKER) (test 29 U/L 6-55 nzgj=299) EGFR (BEAKER) (test 121 mL/min/1.73 sq ESTIMATED GFR IS NOT rufv=5309) m ACCURATE CREATININE CLEARANCE IN PREDICTING GLOMERULAR FILTRATION RATE. ESTIMATED GFR IS NOT APPLICABLE FOR DIALYSIS PATIENTS. PT/[id number] 06:28:00 Test Item Value Reference Range Comments PROTIME (BEAKER) (test tsup=091) 13.2 seconds 11.7-14.7 INR (BEAKER) (test gdes=402) 1.0 <=5.9 PARTIAL THROMBOPLASTIN TIME (BEAKER) (test 23.8 seconds 22.5-36.0 lkoa=250) RECOMMENDED COUMADIN/WARFARIN INR THERAPY RANGESSTANDARD DOSE: 2.0 - 3.0 Includes: PROPHYLAXIS forvenous thrombosis, systemic embolization; TREATMENT for venous thrombosis and/or pulmonary embolus.HIGH RISK: Target INR is 2.5-3.5 for patients with mechanical heart valves.POCT-GLUCOSE [id number] 06:01:00 Test Item Value Reference Range Comments POC-GLUCOSE METER (BEAKER) 102 mg/dL 70-110 TESTED AT [address] (test yhzk=9257) [facility] [address] POCT-GLUCOSE [id number] 06:00:00 Test Item Value Reference Range Comments POC-GLUCOSE METER (BEAKER) 65 mg/dL 70-110 TESTED AT [address] (test gacj=1096) [facility] [address] POCT-GLUCOSE [id number] 02:18:00 Test Item Value Reference Range Comments POC-GLUCOSE METER (BEAKER) 185 mg/dL 70-110 TESTED AT [address] (test zzlk=2004) [facility] [address] POCT-GLUCOSE [id number] 00:05:00 Test Item Value Reference Range Comments POC-GLUCOSE METER (BEAKER) 254 mg/dL 70-110 TESTED AT [address] (test sidv=0087) [facility] [address] POCT-GLUCOSE [id number] 20:51:00 Test Item Value Reference Range Comments POC-GLUCOSE METER (BEAKER) 157 mg/dL 70-110 TESTED AT [address] (test lxvx=7243) [facility] [address] POCT-GLUCOSE [id number] 17:44:00 Test Item Value Reference Range Comments POC-GLUCOSE METER (BEAKER) 192 mg/dL 70-110 TESTED AT [address] (test mzta=0997) [facility] [address] POCT-GLUCOSE [id number] 12:38:00 Test Item Value Reference Range Comments POC-GLUCOSE METER (BEAKER) 338 mg/dL 70-110 Notified JORDON STAPLETON/TESTED AT [facility] (test afqn=4152) [address] [facility] [address] AFB CULTURE + [id number] 10:58:00 Test Item Value Reference Range Comments CULTURE (BEAKER) (test No acid-fast bacilli isolated xcrj=5525) in 42 days AFB SMEAR (BEAKER) (test No acid fast bacilli seen eqiw=219) COMPREHENSIVE METABOLIC [id number] 10:31:00 Test Item Value Reference Range Comments TOTAL PROTEIN (BEAKER) 6.5 gm/dL 6.0-8.3 (test rzdg=964) ALBUMIN (BEAKER) (test 2.8 g/dL 3.5-5.0 elpk=9485) ALKALINE PHOSPHATASE 109 U/L 40-150 (BEAKER) (test uuir=404) BILIRUBIN TOTAL (BEAKER) 0.1 mg/dL 0.2-1.2 (test ydfx=061) SODIUM (BEAKER) (test 137 meq/L 136-145 nnhf=734) POTASSIUM (BEAKER) (test 4.6 meq/L 3.5-5.1 dabd=997) CHLORIDE (BEAKER) (test 97 meq/L 98-107 lhgo=751) CO2 (BEAKER) (test 29 meq/L 22-29 qtoz=998) BLOOD UREA NITROGEN 26 mg/dL 7-21 (BEAKER) (test yaef=865) CREATININE (BEAKER) (test 0.88 mg/dL 0.57-1.25 ebtd=888) GLUCOSE RANDOM (BEAKER) 298 mg/dL 70-105 (test emon=279) CALCIUM (BEAKER) (test 8.5 mg/dL 8.4-10.2 mujc=996) AST (SGOT) (BEAKER) (test 26 U/L 5-34 oqow=998) ALT (SGPT) (BEAKER) (test 30 U/L 6-55 mxtt=279) EGFR (BEAKER) (test 94 mL/min/1.73 sq m ESTIMATED GFR IS NOT tvqr=0923) ACCURATE CREATININE CLEARANCE IN PREDICTING GLOMERULAR FILTRATION RATE. ESTIMATED GFR IS NOT APPLICABLE FOR DIALYSIS PATIENTS. CBC W/PLT COUNT & AUTO [id number] 10:30:00 Test Item Value Reference Range Comments WHITE BLOOD CELL COUNT (BEAKER) (test jbvv=237) 17.2 K/ L 3.5-10.5 RED BLOOD CELL COUNT (BEAKER) (test dmpt=714) 3.93 M/ L 3.93-5.22 HEMOGLOBIN (BEAKER) (test ertb=732) 10.4 GM/DL 11.2-15.7 HEMATOCRIT (BEAKER) (test fzfw=343) 34.7 % 34.1-44.9 MEAN CORPUSCULAR VOLUME (BEAKER) (test uhol=332) 88.3 fL 79.4-94.8 MEAN CORPUSCULAR HEMOGLOBIN (BEAKER) (test 26.5 pg 25.6-32.2 bgww=017) MEAN CORPUSCULAR HEMOGLOBIN CONC (BEAKER) (test 30.0 GM/DL 32.2-35.5 dbyn=059) RED CELL DISTRIBUTION WIDTH (BEAKER) (test 15.4 % 11.7-14.4 nsek=471) PLATELET COUNT (BEAKER) (test yjav=626) 343 K/CU MM 150-450 MEAN PLATELET VOLUME (BEAKER) (test rjhc=845) 11.2 fL 9.4-12.3 NUCLEATED RED BLOOD CELLS (BEAKER) (test 0 /100 WBC 0-0 acum=571) NEUTROPHILS RELATIVE PERCENT (BEAKER) (test 87 % moty=043) LYMPHOCYTES RELATIVE PERCENT (BEAKER) (test 6 % fyke=855) MONOCYTES RELATIVE PERCENT (BEAKER) (test 5 % svvn=299) EOSINOPHILS RELATIVE PERCENT (BEAKER) (test 0 % idun=068) BASOPHILS RELATIVE PERCENT (BEAKER) (test 0 % itnj=548) NEUTROPHILS ABSOLUTE COUNT (BEAKER) (test 14.93 K/ L 1.56-6.13 rcrx=153) LYMPHOCYTES ABSOLUTE COUNT (BEAKER) (test 0.96 K/ L 1.18-3.74 zstj=826) MONOCYTES ABSOLUTE COUNT (BEAKER) (test 0.92 K/ L 0.24-0.36 yfmk=915) EOSINOPHILS ABSOLUTE COUNT (BEAKER) (test 0.00 K/ L 0.04-0.36 yvvq=590) BASOPHILS ABSOLUTE COUNT (BEAKER) (test 0.03 K/ L 0.01-0.08 dild=142) IMMATURE GRANULOCYTES-RELATIVE PERCENT (BEAKER) 2 % 0-1 (test fnai=5006) POCT-GLUCOSE [id number] 08:59:00 Test Item Value Reference Range Comments POC-GLUCOSE METER (BEAKER) 108 mg/dL 70-110 TESTED AT [address] (test vwdf=1516) [place] [address] POCT-GLUCOSE [id number] 07:11:00 Test Item Value Reference Range Comments POC-GLUCOSE METER (BEAKER) 170 mg/dL 70-110 TESTED AT [address] (test lwox=1268) [place] [address] [id number] 06:34:00 Test Item Value Reference Range Comments BLOOD UREA NITROGEN (BEAKER) (test rrzh=133) 24 mg/dL 7-21 [id number] 06:34:00 Test Item Value Reference Range Comments CREATININE (BEAKER) (test 0.87 mg/dL 0.57-1.25 uzsr=890) EGFR (BEAKER) (test 95 mL/min/1.73 sq m ESTIMATED GFR IS NOT nwlk=6253) ACCURATE CREATININE CLEARANCE IN PREDICTING GLOMERULAR FILTRATION RATE. ESTIMATED GFR IS NOT APPLICABLE FOR DIALYSIS PATIENTS. POCT-GLUCOSE [id number] 06:05:00 Test Item Value Reference Range Comments POC-GLUCOSE METER (BEAKER) 171 mg/dL 70-110 TESTED AT [address] (test ttyc=7617) [place] [address] SCREEN, [id number] 02:57:00 Test Item Value Reference Range Comments TEST URINE (BEAKER) (test shdp=146) Negative POCT-GLUCOSE [id number] 00:14:00 Test Item Value Reference Range Comments POC-GLUCOSE METER (BEAKER) 262 mg/dL 70-110 TESTED AT [address] (test fucz=2740) [place] [address] POCT-GLUCOSE [id number] 21:03:00 Test Item Value Reference Range Comments POC-GLUCOSE METER (BEAKER) 287 mg/dL 70-110 TESTED AT [address] (test xtnb=6026) [place] [address] RESPIRATORY PANEL [id number] 19:49:00 Test Item Value Reference Range Comments HUMAN METAPNEUMOVIRUS (BEAKER) (test Not detected Not detected, Equivocal ptlp=0748) RHINOVIRUS (BEAKER) (test tqnt=5970) Not detected Not detected, Equivocal INFLUENZA A (BEAKER) (test qlgn=6093) Not detected Not detected, Equivocal INFLUENZA A (NO SUBTYPE) (test Not detected, Equivocal bbwl=9278) INFLUENZA A SUBTYPE H1 (BEAKER) (test Not detected, Equivocal wevq=5249) INFLUENZA A SUBTYPE H3 (BEAKER) (test Not detected, Equivocal vnnm=7236) INFLUENZA A SUBTYPE H1-2009 (BEAKER) Not detected, Equivocal (test utlm=7948) INFLUENZA B (BEAKER) (test jukn=5504) Not detected Not detected, Equivocal RESPIRATORY SYNCYTIAL VIRUS (BEAKER) Not detected Not detected, Equivocal (test leqb=6039) PARAINFLUENZA VIRUS 1 (BEAKER) (test Not detected Not detected, Equivocal lbeg=2349) PARAINFLUENZA VIRUS 2 (BEAKER) (test Not detected Not detected, Equivocal cidu=1083) PARAINFLUENZA VIRUS 3 (BEAKER) (test Not detected Not detected, Equivocal oeho=6863) PARAINFLUENZA VIRUS 4 (BEAKER) (test Not detected Not detected, Equivocal ssnr=3352) ADENOVIRUS (BEAKER) (test voia=1384) Not detected Not detected, Equivocal CORONAVIRUS 229E (BEAKER) (test Not detected Not detected, Equivocal spnm=7727) CORONAVIRUS HKU1 (BEAKER) (test Not detected Not detected, Equivocal drdh=2207) CORONAVIRUS NL63 (BEAKER) (test Not detected Not detected, Equivocal yith=4916) CORONAVIRUS OC43 (BEAKER) (test Not detected Not detected, Equivocal raeu=9311) BORDETELLA PERTUSSIS (BEAKER) (test Not detected Not detected, Equivocal ujpx=7852) CHLAMYDOPHILA PNEUMONIAE (BEAKER) (test Not detected Not detected, Equivocal uczh=3330) MYCOPLASMA PNEUMONIAE (BEAKER) (test Not detected Not detected, Equivocal vapi=4030) Other viruses and bacteria not targeted by this PCR panel cannot be excluded; therefore clinical correlation and follow up of serology, culture results, and other molecular studies is required. The results are not intended to be used as the sole means for clinical diagnosis or patient management decisions. This sample was tested at the [facility] using the [employer] [facility] FilmArray Respiratory Panel. It is FDA cleared and has been verified and approved by the [facility] for clinical use on nasal swab specimens. It is not FDA-cleared for use on bronchial wash/lavage samples. However, for this sample type, validation was performed and test characteristics were determined and approved, by [facility] for clinical use under the Clinical Laboratory Improvement Amendments (CLIA) of 1988 requirements. Therefore, FDA clearance isnot required. This laboratory is CLIA-certified and [employer] ([employer])-accredited to perform high complexity testing.POCT-GLUCOSE [id number] 17:42:00 Test Item Value Reference Range Comments POC-GLUCOSE METER (BEAKER) 277 mg/dL 70-110 TESTED AT [address] (test sbxp=1932) [place] [address] POCT-GLUCOSE [id number] 14:59:00 Test Item Value Reference Range Comments POC-GLUCOSE METER (BEAKER) 328 mg/dL 70-110 Will Repeat Test/TESTED AT (test pfkn=3864) [place] [address] POCT-GLUCOSE [id number] 12:42:00 Test Item Value Reference Range Comments POC-GLUCOSE METER (BEAKER) 152 mg/dL 70-110 TESTED AT [address] (test fdiu=1443) [place] [address] POCT-GLUCOSE [id number] 12:22:00 Test Item Value Reference Range Comments POC-GLUCOSE METER (BEAKER) 168 mg/dL 70-110 TESTED AT [address] (test oyap=0010) [place] [address] COMPREHENSIVE METABOLIC [id number] 10:53:00 Test Item Value Reference Range Comments TOTAL PROTEIN (BEAKER) 7.0 gm/dL 6.0-8.3 (test drbr=881) ALBUMIN (BEAKER) (test 2.8 g/dL 3.5-5.0 iwnj=5535) ALKALINE PHOSPHATASE 140 U/L 40-150 (BEAKER) (test xvwv=012) BILIRUBIN TOTAL (BEAKER) 0.1 mg/dL 0.2-1.2 (test ssjz=164) SODIUM (BEAKER) (test 135 meq/L 136-145 pfem=975) POTASSIUM (BEAKER) (test 4.0 meq/L 3.5-5.1 amya=482) CHLORIDE (BEAKER) (test 96 meq/L 98-107 oknw=578) CO2 (BEAKER) (test 30 meq/L 22-29 zlrt=170) BLOOD UREA NITROGEN 15 mg/dL 7-21 (BEAKER) (test iymx=953) CREATININE (BEAKER) (test 0.70 mg/dL 0.57-1.25 yxiy=838) GLUCOSE RANDOM (BEAKER) 156 mg/dL 70-105 (test igfr=719) CALCIUM (BEAKER) (test 8.5 mg/dL 8.4-10.2 rmbi=596) AST (SGOT) (BEAKER) (test 73 U/L 5-34 vedp=440) ALT (SGPT) (BEAKER) (test 44 U/L 6-55 ttac=402) EGFR (BEAKER) (test 123 mL/min/1.73 sq ESTIMATED GFR IS NOT girc=1263) m ACCURATE CREATININE CLEARANCE IN PREDICTING GLOMERULAR FILTRATION RATE. ESTIMATED GFR IS NOT APPLICABLE FOR DIALYSIS PATIENTS. POCT-GLUCOSE [id number] 10:43:00 Test Item Value Reference Range Comments POC-GLUCOSE METER (BEAKER) 126 mg/dL 70-[address] [facility] [address] [facility] (test ykat=0211) [facility] [address] CBC W/PLT COUNT & AUTO [id number] 10:40:00 Test Item Value Reference Range Comments WHITE BLOOD CELL COUNT (BEAKER) (test efbr=376) 19.7 K/ L 3.5-10.5 RED BLOOD CELL COUNT (BEAKER) (test kfet=588) 4.46 M/ L 3.93-5.22 HEMOGLOBIN (BEAKER) (test mlcm=102) 12.1 GM/DL 11.2-15.7 HEMATOCRIT (BEAKER) (test aixs=816) 38.8 % 34.1-44.9 MEAN CORPUSCULAR VOLUME (BEAKER) (test xgdt=839) 87.0 fL 79.4-94.8 MEAN CORPUSCULAR HEMOGLOBIN (BEAKER) (test 27.1 pg 25.6-32.2 oyqc=692) MEAN CORPUSCULAR HEMOGLOBIN CONC (BEAKER) (test 31.2 GM/DL 32.2-35.5 taiq=750) RED CELL DISTRIBUTION WIDTH (BEAKER) (test 15.1 % 11.7-14.4 oeyk=943) PLATELET COUNT (BEAKER) (test kjnw=622) 354 K/CU MM 150-450 MEAN PLATELET VOLUME (BEAKER) (test wmsm=856) 11.4 fL 9.4-12.3 NUCLEATED RED BLOOD CELLS (BEAKER) (test 0 /100 WBC 0-0 nynu=077) NEUTROPHILS RELATIVE PERCENT (BEAKER) (test 87 % ujlb=322) LYMPHOCYTES RELATIVE PERCENT (BEAKER) (test 6 % qycu=904) MONOCYTES RELATIVE PERCENT (BEAKER) (test 4 % mkzh=008) EOSINOPHILS RELATIVE PERCENT (BEAKER) (test 0 % lylv=470) BASOPHILS RELATIVE PERCENT (BEAKER) (test 0 % kivn=182) NEUTROPHILS ABSOLUTE COUNT (BEAKER) (test 17.07 K/ L 1.56-6.13 tyjj=882) LYMPHOCYTES ABSOLUTE COUNT (BEAKER) (test 1.22 K/ L 1.18-3.74 vzsr=717) MONOCYTES ABSOLUTE COUNT (BEAKER) (test 0.82 K/ L 0.24-0.36 vkpy=652) EOSINOPHILS ABSOLUTE COUNT (BEAKER) (test 0.00 K/ L 0.04-0.36 yggn=219) BASOPHILS ABSOLUTE COUNT (BEAKER) (test 0.05 K/ L 0.01-0.08 ytps=578) IMMATURE GRANULOCYTES-RELATIVE PERCENT (BEAKER) 3 % 0-1 (test rgfo=5462) POCT-GLUCOSE [id number] 10:22:00 Test Item Value Reference Range Comments POC-GLUCOSE METER (BEAKER) 95 mg/dL 70-[address] [facility] [address] [facility] (test tvdh=2931) [facility] [address] [id number] 09:47:00 Test Item Value Reference Range Comments CREATININE (BEAKER) (test 0.71 mg/dL 0.57-1.25 ldsm=565) EGFR (BEAKER) (test 121 mL/min/1.73 sq m ESTIMATED GFR IS NOT acgy=5719) ACCURATE CREATININE CLEARANCE IN PREDICTING GLOMERULAR FILTRATION RATE. ESTIMATED GFR IS NOT APPLICABLE FOR DIALYSIS PATIENTS. [id number] 09:41:00 Test Item Value Reference Range Comments BLOOD UREA NITROGEN (BEAKER) (test cdms=026) 15 mg/dL 7-21 LACTIC ACID, VENOUS, WHOLE [id number] 09:18:00 Test Item Value Reference Range Comments LACTATE BLOOD VENOUS (2) (BEAKER) (test 1.1 mmol/L 0.5-2.2 qkgj=0086) CBC W/PLT COUNT & AUTO [id number] 09:13:00 Test Item Value Reference Range Comments WHITE BLOOD CELL COUNT (BEAKER) (test qeum=706) 20.0 K/ L 3.5-10.5 RED BLOOD CELL COUNT (BEAKER) (test pqfb=575) 4.30 M/ L 3.93-5.22 HEMOGLOBIN (BEAKER) (test vazz=234) 11.6 GM/DL 11.2-15.7 HEMATOCRIT (BEAKER) (test wtix=680) 37.1 % 34.1-44.9 MEAN CORPUSCULAR VOLUME (BEAKER) (test ocns=718) 86.3 fL 79.4-94.8 MEAN CORPUSCULAR HEMOGLOBIN (BEAKER) (test 27.0 pg 25.6-32.2 mtny=513) MEAN CORPUSCULAR HEMOGLOBIN CONC (BEAKER) (test 31.3 GM/DL 32.2-35.5 sjrj=719) RED CELL DISTRIBUTION WIDTH (BEAKER) (test 15.0 % 11.7-14.4 uufq=356) PLATELET COUNT (BEAKER) (test dzhk=017) 409 K/CU MM 150-450 MEAN PLATELET VOLUME (BEAKER) (test qnkh=363) 11.0 fL 9.4-12.3 NUCLEATED RED BLOOD CELLS (BEAKER) (test 0 /100 WBC 0-0 vdcf=758) NEUTROPHILS RELATIVE PERCENT (BEAKER) (test 83 % noxn=181) LYMPHOCYTES RELATIVE PERCENT (BEAKER) (test 6 % dlka=654) MONOCYTES RELATIVE PERCENT (BEAKER) (test 6 % nxnc=045) EOSINOPHILS RELATIVE PERCENT (BEAKER) (test 0 % cjmw=589) BASOPHILS RELATIVE PERCENT (BEAKER) (test 0 % hakq=148) NEUTROPHILS ABSOLUTE COUNT (BEAKER) (test 16.63 K/ L 1.56-6.13 yjis=310) LYMPHOCYTES ABSOLUTE COUNT (BEAKER) (test 1.24 K/ L 1.18-3.74 xibd=603) MONOCYTES ABSOLUTE COUNT (BEAKER) (test 1.21 K/ L 0.24-0.36 kwoe=423) EOSINOPHILS ABSOLUTE COUNT (BEAKER) (test 0.00 K/ L 0.04-0.36 fcah=047) BASOPHILS ABSOLUTE COUNT (BEAKER) (test 0.06 K/ L 0.01-0.08 rsbx=113) IMMATURE GRANULOCYTES-RELATIVE PERCENT (BEAKER) 4 % 0-1 (test nxpq=1614) POCT-BLOOD GASES, [id number] 09:11:00 Test Item Value Reference Range Comments TEMP, CELSIUS-POC (BEAKER) 37.0 (test xvpn=8159) FIO2-POC (BEAKER) (test TESTED AT [address] iaoa=2212) [place] [address] PH, VENOUS-POC (BEAKER) 7.377 7.320-7.420 (test odbw=7479) PCO2, VENOUS-POC (BEAKER) 61.0 mm Hg 41.0-51.0 (test wkwa=8466) PO2, VENOUS-POC (BEAKER) 36.0 mm Hg 25.0-40.0 (test cwem=0314) SO2, VENOUS-POC (BEAKER) 66.0 % 40.0-70.0 (test nbxc=3221) HCO3, VENOUS-POC (BEAKER) 35.8 meq/L 21.0-29.0 (test uzsx=4980) BASE EXCESS, VENOUS-POC 11.0 meq/L -2.0-3.0 (BEAKER) (test bbvd=6997) [id number] 09:11:00 Test Item Value Reference Range Comments POC-SODIUM (BEAKER) (test 138 meq/L 135-148 TESTED AT [place] [address] [address] mcyt=9694) [place] [address] [id number] 09:11:00 Test Item Value Reference Range Comments POC-POTASSIUM (BEAKER) (test 2.9 meq/L 3.6-5.5 TESTED AT [place] [address] [address] oyze=3813) [place] [address] [id number] 09:11:00 Test Item Value Reference Range Comments POC-GLUCOSE (BEAKER) (test 143 mg/dL 70-110 TESTED AT [address] oqzk=2646) [place] [address] POCT-CALCIUM [id number] 09:11:00 Test Item Value Reference Range Comments POC-CALCIUM IONIZED (BEAKER) 1.10 mmol/L 1.12-1.27 TESTED AT [address] (test tgmy=9938) [place] [address] [id number] 09:11:00 Test Item Value Reference Range Comments POC-HEMATOCRIT (BEAKER) (test 36 % 36-45 TESTED AT [address] xqso=4235) [place] [address] [id number] 09:11:00 Test Item Value Reference Range Comments POC-HEMOGLOBIN (BEAKER) 12.2 g/dL 12.0-15.0 TESTED AT [address] (test yxnh=7430) [place] [address]TESTED AT [place] [address] POCT-LACTIC ACID, [id number] 09:11:00 Test Item Value Reference Range Comments POC-LACTIC ACID, VENOUS 1.2 mmol/L 0.9-1.7 TESTED AT [address] (BEAKER) (test nhiv=8852) [place] [address] POCT-GLUCOSE [id number] 08:55:00 Test Item Value Reference Range Comments POC-GLUCOSE METER (BEAKER) 283 mg/dL 70-110 TESTED AT [address] (test eytq=8261) [place] [address] POCT-GLUCOSE [id number] 08:34:00 Test Item Value Reference Range Comments POC-GLUCOSE METER (BEAKER) < mg/dL 70-110 OUTSIDE MEASURING RANGEWill (test fzwn=0865) Repeat Test/TESTED AT [place] [id number] POCT-GLUCOSE [id number] 21:30:00 Test Item Value Reference Range Comments POC-GLUCOSE METER (BEAKER) 184 mg/dL 70-110 TESTED AT [address] (test nplx=2606) [place] [address] POCT-GLUCOSE [id number] 18:56:00 Test Item Value Reference Range Comments POC-GLUCOSE METER (BEAKER) 128 mg/dL 70-110 TESTED AT [address] (test axjz=6885) [place] [address] POCT-GLUCOSE [id number] 15:23:00 Test Item Value Reference Range Comments POC-GLUCOSE METER (BEAKER) 41 mg/dL 70-110 Will Repeat Test/TESTED AT (test kefk=7764) [place] [address] POCT-GLUCOSE [id number] 13:56:00 Test Item Value Reference Range Comments POC-GLUCOSE METER (BEAKER) 105 mg/dL 70-110 TESTED AT [address] (test uewx=4380) [place] [address] POCT-GLUCOSE [id number] 07:40:00 Test Item Value Reference Range Comments POC-GLUCOSE METER (BEAKER) 321 mg/dL 70-110 Will Repeat Test/TESTED AT (test yrfx=0628) [place] [address] [id number] 06:19:00 Test Item Value Reference Range Comments BLOOD UREA NITROGEN (BEAKER) (test fink=426) 13 mg/dL 7- [id number] 06:19:00 Test Item Value Reference Range Comments CREATININE (BEAKER) (test 0.77 mg/dL 0.57-1.25 rqxj=955) EGFR (BEAKER) (test 110 mL/min/1.73 sq m ESTIMATED GFR IS NOT csao=4522) ACCURATE CREATININE CLEARANCE IN PREDICTING GLOMERULAR FILTRATION RATE. ESTIMATED GFR IS NOT APPLICABLE FOR DIALYSIS PATIENTS. POCT-GLUCOSE [id number] 21:13:00 Test Item Value Reference Range Comments POC-GLUCOSE METER (BEAKER) 328 mg/dL 70-110 TESTED AT [address] (test ugml=4266) [place] [address] POCT-GLUCOSE [id number] 16:33:00 Test Item Value Reference Range Comments POC-GLUCOSE METER (BEAKER) 309 mg/dL 70-110 TESTED AT [address] (test rkeu=6194) [place] [address] [id number] 12:59:00 Test Item Value Reference Range Comments BLOOD UREA NITROGEN (BEAKER) (test dvru=804) 11 mg/dL 7-21 [id number] 12:59:00 Test Item Value Reference Range Comments CREATININE (BEAKER) (test 0.93 mg/dL 0.57-1.25 xdof=860) EGFR (BEAKER) (test 88 mL/min/1.73 sq m ESTIMATED GFR IS NOT tfae=0840) ACCURATE CREATININE CLEARANCE IN PREDICTING GLOMERULAR FILTRATION RATE. ESTIMATED GFR IS NOT APPLICABLE FOR DIALYSIS PATIENTS. POCT-GLUCOSE [id number] 12:45:00 Test Item Value Reference Range Comments POC-GLUCOSE METER (BEAKER) 206 mg/dL 70-110 TESTED AT [address] (test xmft=0369) [place] [address] BASIC METABOLIC [id number] 10:43:00 Test Item Value Reference Range Comments SODIUM (BEAKER) (test 136 meq/L 136-145 fxfn=214) POTASSIUM (BEAKER) (test 4.0 meq/L 3.5-5.1 xlnw=930) CHLORIDE (BEAKER) (test 100 meq/L 98-107 stgq=527) CO2 (BEAKER) (test 25 meq/L 22-29 joze=979) BLOOD UREA NITROGEN 10 mg/dL 7-21 (BEAKER) (test yuqy=907) CREATININE (BEAKER) (test 0.88 mg/dL 0.57-1.25 ionb=123) GLUCOSE RANDOM (BEAKER) 440 mg/dL 70-105 (test wboe=372) CALCIUM (BEAKER) (test 9.4 mg/dL 8.4-10.2 vmpa=490) EGFR (BEAKER) (test 94 mL/min/1.73 sq m ESTIMATED GFR IS NOT hbau=3181) ACCURATE CREATININE CLEARANCE IN PREDICTING GLOMERULAR FILTRATION RATE. ESTIMATED GFR IS NOT APPLICABLE FOR DIALYSIS PATIENTS. KETONE, [id number] 10:27:00 Test Item Value Reference Range Comments KETONES, BLOOD (BEAKER) (test lqjo=4183) 0.1 mmol/L <0.4 POCT-GLUCOSE [id number] 09:46:00 Test Item Value Reference Range Comments POC-GLUCOSE METER (BEAKER) 468 mg/dL 70-110 TESTED AT [address] (test hhyc=8762) [place] [address] POCT-GLUCOSE [id number] 09:06:00 Test Item Value Reference Range Comments POC-GLUCOSE METER (BEAKER) 447 mg/dL 70-110 Will Repeat Test/TESTED AT (test fssj=5906) [place] [address] POCT-GLUCOSE [id number] 04:35:00 Test Item Value Reference Range Comments POC-GLUCOSE METER (BEAKER) 430 mg/dL 70-110 Notified RN MD/TESTED AT [facility] (test zvcg=9911) [address] [place] [address] POCT-GLUCOSE [id number] 00:48:00 Test Item Value Reference Range Comments POC-GLUCOSE METER (BEAKER) 481 mg/dL 70-110 Notified RN MD/TESTED AT [facility] (test sqot=3812) [address] [place] [address] SPIN/CONCENTRATION [id number] 00:21:00 Test Item Value Reference Range Comments CONCENTRATION CHARGED (BEAKER) (test yhtf=7347) Done POCT-GLUCOSE [id number] 22:01:00 Test Item Value Reference Range Comments POC-GLUCOSE METER (BEAKER) > mg/dL 70-110 OUTSIDE MEASURING RANGENotified RN (test mmwu=4751) MD/TESTED AT [address] [address] RESPIRATORY PANEL [id number] 20:48:00 Test Item Value Reference Range Comments HUMAN METAPNEUMOVIRUS (BEAKER) (test Not detected Not detected, Equivocal subj=0234) RHINOVIRUS (BEAKER) (test xsgv=2935) Not detected Not detected, Equivocal INFLUENZA A (BEAKER) (test ldak=2767) Not detected Not detected, Equivocal INFLUENZA A (NO SUBTYPE) (test Not detected, Equivocal bhtt=2174) INFLUENZA A SUBTYPE H1 (BEAKER) (test Not detected, Equivocal wnqh=6300) INFLUENZA A SUBTYPE H3 (BEAKER) (test Not detected, Equivocal qbig=5573) INFLUENZA A SUBTYPE H1-2009 (BEAKER) Not detected, Equivocal (test kjgc=7017) INFLUENZA B (BEAKER) (test zlle=6186) Not detected Not detected, Equivocal RESPIRATORY SYNCYTIAL VIRUS (BEAKER) Not detected Not detected, Equivocal (test rliw=8436) PARAINFLUENZA VIRUS 1 (BEAKER) (test Not detected Not detected, Equivocal ggcl=5125) PARAINFLUENZA VIRUS 2 (BEAKER) (test Not detected Not detected, Equivocal mmms=3658) PARAINFLUENZA VIRUS 3 (BEAKER) (test Not detected Not detected, Equivocal zzkn=7239) PARAINFLUENZA VIRUS 4 (BEAKER) (test Not detected Not detected, Equivocal ngky=1759) ADENOVIRUS (BEAKER) (test ngwk=5683) Not detected Not detected, Equivocal CORONAVIRUS 229E (BEAKER) (test Not detected Not detected, Equivocal fihi=6360) CORONAVIRUS HKU1 (BEAKER) (test Not detected Not detected, Equivocal pmbt=5788) CORONAVIRUS NL63 (BEAKER) (test Not detected Not detected, Equivocal ckor=8465) CORONAVIRUS OC43 (BEAKER) (test Not detected Not detected, Equivocal drqd=3649) BORDETELLA PERTUSSIS (BEAKER) (test Not detected Not detected, Equivocal yypt=2699) CHLAMYDOPHILA PNEUMONIAE (BEAKER) (test Not detected Not detected, Equivocal uwzz=7571) MYCOPLASMA PNEUMONIAE (BEAKER) (test Not detected Not detected, Equivocal gesn=1770) Other viruses and bacteria not targeted by this PCR panel cannot be excluded; therefore clinical correlation and follow up of serology, culture results, and other molecular studies is required. The results are not intended to be used as the sole means for clinical diagnosis or patient management decisions. This sample was tested at the [facility] using the [employer] Respiratory Panel. It is FDA cleared and has been verified and approved by the [facility] for clinical use on nasal swab specimens. It is not FDA-cleared for use on bronchial wash/lavage samples. However, for this sample type, validation was performed and test characteristics were determined and approved, by [facility] for clinical use under the Clinical Laboratory Improvement Amendments (CLIA) of 1988 requirements. Therefore, FDA clearance isnot required. This laboratory is CLIA-certified and [employer] ([employer])-accredited to perform high complexity testing.POCT-GLUCOSE [id number] 18:50:00 Test Item Value Reference Range Comments POC-GLUCOSE METER (BEAKER) > mg/dL 70-110 OUTSIDE MEASURING RANGETESTED AT (test mapn=4854) [address] [address] POCT-GLUCOSE [id number] 13:49:00 Test Item Value Reference Range Comments POC-GLUCOSE METER (BEAKER) > mg/dL 70-110 OUTSIDE MEASURING RANGETESTED AT (test tbms=1057) [address] [address] HEMOGLOBIN [id number] 09:49:00 Test Item Value Reference Range Comments HEMOGLOBIN A1C (BEAKER) (test sagc=830) 12.9 % 4.3-6.1 POCT-GLUCOSE [id number] 08:18:00 Test Item Value Reference Range Comments POC-GLUCOSE METER (BEAKER) 301 mg/dL 70-[address] [facility] [address] [facility]test fsrx=7436) [facility] [address] URINALYSIS [id number] 06:31:00 Test Item Value Reference Range Comments RBC UA (BEAKER) (test ybua=214) 2 /HPF WBC UA (BEAKER) (test umgj=488) 4 /HPF BACTERIA (BEAKER) (test uwzt=747) Rare MUCUS (BEAKER) (test fkti=9849) Rare SQUAMOUS EPITHELIAL (BEAKER) (test zzfz=355) 4 /HPF YEAST (BEAKER) (test gfyb=4195) Few URINALYSIS WITH MICROSCOPIC IF [id number] 06:24:00 Test Item Value Reference Range Comments COLOR (BEAKER) (test cwfy=408) Light Yellow CLARITY (BEAKER) (test kzxs=555) Clear SPECIFIC GRAVITY UA (BEAKER) (test ksna=272) 1.014 1.001-1.035 PH UA (BEAKER) (test ibii=363) 6.5 5.0-8.0 PROTEIN UA (BEAKER) (test aeef=156) 30 mg/dL Negative GLUCOSE UA (BEAKER) (test uhwi=729) >1000 mg/dL Negative KETONES UA (BEAKER) (test cnfy=453) Negative Negative BILIRUBIN UA (BEAKER) (test ybat=792) Negative Negative BLOOD UA (BEAKER) (test slrr=992) Trace Negative NITRITE UA (BEAKER) (test zqjf=064) Negative Negative LEUKOCYTE ESTERASE UA (BEAKER) (test pntc=150) Negative Negative UROBILINOGEN UA (BEAKER) (test eqts=872) 0.2 mg/dL 0.2-1.0 SOURCE(BEAKER) (test enbv=8378) COMPREHENSIVE METABOLIC [id number] 05:21:00 Test Item Value Reference Range Comments TOTAL PROTEIN (BEAKER) 7.0 gm/dL 6.0-8.3 Specimen slightly (test ghmm=149) hemolyzed ALBUMIN (BEAKER) (test 2.7 g/dL 3.5-5.0 Specimen slightly qxoz=3744) hemolyzed ALKALINE PHOSPHATASE 164 U/L 40-150 (BEAKER) (test opjy=386) BILIRUBIN TOTAL (BEAKER) 0.1 mg/dL 0.2-1.2 Specimen slightly (test hvlz=754) hemolyzed SODIUM (BEAKER) (test 132 meq/L 136-145 ppjz=332) POTASSIUM (BEAKER) (test 4.8 meq/L 3.5-5.1 Specimen slightly nngb=431) hemolyzed CHLORIDE (BEAKER) (test 100 meq/L 98-107 edqy=782) CO2 (BEAKER) (test 23 meq/L 22-29 hylu=532) BLOOD UREA NITROGEN 6 mg/dL 7-21 (BEAKER) (test nuke=018) CREATININE (BEAKER) (test 0.75 mg/dL 0.57-1.25 Specimen slightly snsp=180) hemolyzed GLUCOSE RANDOM (BEAKER) 468 mg/dL 70-105 (test jneg=734) CALCIUM (BEAKER) (test 8.1 mg/dL 8.4-10.2 vdhh=591) AST (SGOT) (BEAKER) (test 20 U/L 5-34 Specimen slightly hifz=275) hemolyzed ALT (SGPT) (BEAKER) (test 11 U/L 6-55 Specimen slightly xovn=794) hemolyzed EGFR (BEAKER) (test 113 mL/min/1.73 sq ESTIMATED GFR IS NOT kljb=2700) m ACCURATE CREATININE CLEARANCE IN PREDICTING GLOMERULAR FILTRATION RATE. ESTIMATED GFR IS NOT APPLICABLE FOR DIALYSIS PATIENTS. [id number] 05:05:00 Test Item Value Reference Range Comments MAGNESIUM (BEAKER) (test 1.4 mg/dL 1.6-2.6 Specimen slightly hemolyzed rcaj=949) [id number] 05:05:00 Test Item Value Reference Range Comments PHOSPHORUS (BEAKER) (test 3.9 mg/dL 2.3-4.7 Specimen slightly hemolyzed keni=202) [id number] 05:05:00 Test Item Value Reference Range Comments BLOOD UREA NITROGEN (BEAKER) (test zobx=320) 6 mg/dL 7-21 [id number] 05:05:00 Test Item Value Reference Range Comments CREATININE (BEAKER) (test 0.75 mg/dL 0.57-1.25 Specimen slightly bjug=664) hemolyzed EGFR (BEAKER) (test 113 mL/min/1.73 sq m ESTIMATED GFR IS NOT yotg=0378) ACCURATE CREATININE CLEARANCE IN PREDICTING GLOMERULAR FILTRATION RATE. ESTIMATED GFR IS NOT APPLICABLE FOR DIALYSIS PATIENTS. GAMMA GLUTAMYL TRANSFERASE (GGT)[id number] 05:05:00 Test Item Value Reference Range Comments GAMMA GLUTAMYL TRANSFERASE 29 U/L 9-64 Specimen slightly hemolyzed (BEAKER) (test macu=835) POCT-GLUCOSE [id number] 04:43:00 Test Item Value Reference Range Comments POC-GLUCOSE METER (BEAKER) 493 mg/dL 70-110 Notified JORDON STAPLETON/TESTED AT [facility] (test yktv=9129) [address] [facility] [address] CBC W/PLT COUNT & AUTO [id number] 04:15:00 Test Item Value Reference Range Comments WHITE BLOOD CELL COUNT (BEAKER) (test klkd=177) 9.2 K/ L 3.5-10.5 RED BLOOD CELL COUNT (BEAKER) (test pcyq=093) 4.24 M/ L 3.93-5.22 HEMOGLOBIN (BEAKER) (test qcun=056) 11.0 GM/DL 11.2-15.7 HEMATOCRIT (BEAKER) (test wznj=553) 37.0 % 34.1-44.9 MEAN CORPUSCULAR VOLUME (BEAKER) (test rgwq=289) 87.3 fL 79.4-94.8 MEAN CORPUSCULAR HEMOGLOBIN (BEAKER) (test 25.9 pg 25.6-32.2 lrlg=127) MEAN CORPUSCULAR HEMOGLOBIN CONC (BEAKER) (test 29.7 GM/DL 32.2-35.5 kqmb=488) RED CELL DISTRIBUTION WIDTH (BEAKER) (test 14.9 % 11.7-14.4 hpby=363) PLATELET COUNT (BEAKER) (test xyus=668) 418 K/CU MM 150-450 MEAN PLATELET VOLUME (BEAKER) (test hrje=411) 10.8 fL 9.4-12.3 NUCLEATED RED BLOOD CELLS (BEAKER) (test 0 /100 WBC 0-0 kuiw=804) NEUTROPHILS RELATIVE PERCENT (BEAKER) (test 88 % ijuc=756) LYMPHOCYTES RELATIVE PERCENT (BEAKER) (test 8 % qizx=917) MONOCYTES RELATIVE PERCENT (BEAKER) (test 2 % bkix=023) EOSINOPHILS RELATIVE PERCENT (BEAKER) (test 1 % puav=474) BASOPHILS RELATIVE PERCENT (BEAKER) (test 0 % fjej=751) NEUTROPHILS ABSOLUTE COUNT (BEAKER) (test 8.13 K/ L 1.56-6.13 vmfm=939) LYMPHOCYTES ABSOLUTE COUNT (BEAKER) (test 0.73 K/ L 1.18-3.74 cyrm=633) MONOCYTES ABSOLUTE COUNT (BEAKER) (test 0.22 K/ L 0.24-0.36 cxed=977) EOSINOPHILS ABSOLUTE COUNT (BEAKER) (test 0.11 K/ L 0.04-0.36 dgym=019) BASOPHILS ABSOLUTE COUNT (BEAKER) (test 0.03 K/ L 0.01-0.08 pgpz=668) IMMATURE GRANULOCYTES-RELATIVE PERCENT (BEAKER) 0 % 0-1 (test hetj=4076) POCT-LACTIC ACID, [id number] 21:07:00 Test Item Value Reference Range Comments POC-LACTIC ACID, VENOUS 1.5 mmol/L 0.9-1.[address] [facility] [address] [facility] (BEAKER) (test ypvg=4536) [facility] [address] RAD, CHEST, 2 [id number] 20:59:00Reason for exam:->SHORTNESS OF BREATHShould this be performed at the bedside?->NoIs the patient ?-& gt;UnknownFINAL REPORT Chest, 2 views, 09/22/2018 8:22 PM. History: Shortness of breath. Comparison: 08/15/2018. Discussion: The cardiomediastinal silhouette and pulmonary vasculature are within normal limits. Bilateral interstitial opacities with upper lobe predominance is unchanged. No new focal consolidation or effusion. Right IJ Port-A-Cath is unchanged in position. There are no acute osseous abnormalities. The soft tissues are unremarkable. IMPRESSION: Findings consistent with fibrosis. No acute cardiopulmonary abnormality. Signed: Jerald Swartz MDReport Verified Date /Time: 09/22/2018 20:59:18 Reading Location: [facility] B1 C013W Consult Reading Room TROPONIN [id number] 20:13:00 Test Item Value Reference Range Comments TROPONIN I (BEAKER) (test tshz=179) < ng/mL 0.00-0.03 [id number] 20:07:00 Test Item Value Reference Range Comments MAGNESIUM (BEAKER) (test iqji=313) 1.7 mg/dL 1.6-2.6 COMPREHENSIVE METABOLIC [id number] 20:07:00 Test Item Value Reference Range Comments TOTAL PROTEIN (BEAKER) 6.6 gm/dL 6.0-8.3 (test kaab=674) ALBUMIN (BEAKER) (test 2.7 g/dL 3.5-5.0 aegp=0844) ALKALINE PHOSPHATASE 151 U/L 40-150 (BEAKER) (test ixls=062) BILIRUBIN TOTAL (BEAKER) 0.1 mg/dL 0.2-1.2 (test aotv=997) SODIUM (BEAKER) (test 138 meq/L 136-145 ggne=611) POTASSIUM (BEAKER) (test 4.0 meq/L 3.5-5.1 uddw=688) CHLORIDE (BEAKER) (test 105 meq/L 98-107 liqr=770) CO2 (BEAKER) (test 27 meq/L 22-29 kfrr=193) BLOOD UREA NITROGEN 6 mg/dL 7-21 (BEAKER) (test yelq=279) CREATININE (BEAKER) (test 0.67 mg/dL 0.57-1.25 ewya=679) GLUCOSE RANDOM (BEAKER) 113 mg/dL 70-105 (test zfju=328) CALCIUM (BEAKER) (test 8.5 mg/dL 8.4-10.2 swzr=739) AST (SGOT) (BEAKER) (test 23 U/L 5-34 uvlr=452) ALT (SGPT) (BEAKER) (test 11 U/L 6-55 idbb=646) EGFR (BEAKER) (test 129 mL/min/1.73 sq ESTIMATED GFR IS NOT ykkc=9834) m ACCURATE CREATININE CLEARANCE IN PREDICTING GLOMERULAR FILTRATION RATE. ESTIMATED GFR IS NOT APPLICABLE FOR DIALYSIS PATIENTS. [id number] 20:07:00 Test Item Value Reference Range Comments LIPASE (BEAKER) (test ymfw=523) < U/L 8-78 [id number] 20:03:00 Test Item Value Reference Range Comments PROTIME (BEAKER) (test jdvg=283) 14.1 seconds 11.7-14.7 INR (BEAKER) (test ciik=187) 1.1 <=5.9 PARTIAL THROMBOPLASTIN TIME (BEAKER) (test 34.3 seconds 22.5-36.0 rjep=604) RECOMMENDED COUMADIN/WARFARIN INR THERAPY RANGESSTANDARD DOSE: 2.0 - 3.0 Includes: PROPHYLAXIS forvenous thrombosis, systemic embolization; TREATMENT for venous thrombosis and/or pulmonary embolus.HIGH RISK: Target INR is 2.5-3.5 for patients with mechanical heart valves.CBC W/PLT COUNT & AUTO [id number] 19:57:00 Test Item Value Reference Range Comments WHITE BLOOD CELL COUNT (BEAKER) (test pmoc=385) 11.7 K/ L 3.5-10.5 RED BLOOD CELL COUNT (BEAKER) (test czkv=279) 4.08 M/ L 3.93-5.22 HEMOGLOBIN (BEAKER) (test icgd=246) 10.7 GM/DL 11.2-15.7 HEMATOCRIT (BEAKER) (test ijcq=628) 35.5 % 34.1-44.9 MEAN CORPUSCULAR VOLUME (BEAKER) (test irut=950) 87.0 fL 79.4-94.8 MEAN CORPUSCULAR HEMOGLOBIN (BEAKER) (test 26.2 pg 25.6-32.2 hlet=914) MEAN CORPUSCULAR HEMOGLOBIN CONC (BEAKER) (test 30.1 GM/DL 32.2-35.5 lzvj=219) RED CELL DISTRIBUTION WIDTH (BEAKER) (test 14.9 % 11.7-14.4 ffkr=301) PLATELET COUNT (BEAKER) (test pnln=095) 416 K/CU MM 150-450 MEAN PLATELET VOLUME (BEAKER) (test mlcv=642) 10.3 fL 9.4-12.3 NUCLEATED RED BLOOD CELLS (BEAKER) (test 0 /100 WBC 0-0 cefh=147) NEUTROPHILS RELATIVE PERCENT (BEAKER) (test 71 % hueo=909) LYMPHOCYTES RELATIVE PERCENT (BEAKER) (test 17 % wlba=927) MONOCYTES RELATIVE PERCENT (BEAKER) (test 9 % ifpw=729) EOSINOPHILS RELATIVE PERCENT (BEAKER) (test 2 % ntle=515) BASOPHILS RELATIVE PERCENT (BEAKER) (test 0 % ioih=055) NEUTROPHILS ABSOLUTE COUNT (BEAKER) (test 8.30 K/ L 1.56-6.13 xowh=740) LYMPHOCYTES ABSOLUTE COUNT (BEAKER) (test 2.01 K/ L 1.18-3.74 fqya=880) MONOCYTES ABSOLUTE COUNT (BEAKER) (test 1.00 K/ L 0.24-0.36 oxrq=396) EOSINOPHILS ABSOLUTE COUNT (BEAKER) (test 0.26 K/ L 0.04-0.36 bauu=748) BASOPHILS ABSOLUTE COUNT (BEAKER) (test 0.05 K/ L 0.01-0.08 zveo=852) IMMATURE GRANULOCYTES-RELATIVE PERCENT (BEAKER) 0 % 0-1 (test uspt=8298) FUNGUS CULTURE + [id number] 11:38:00 Test Item Value Reference Range Comments CULTURE (BEAKER) (test 1 out of 3 media Penicillium ghkh=8221) speciesThis is a corrected organism result. Previous result was Mold on 09/05/2018 at 0812 PACKAGE SEALER FUNGUS SMEAR (BEAKER) (test 2+ yeast nrov=6008) CF RESPIRATORY [id number] 15:08:00 Test Item Value Reference Range Comments CULTURE (BEAKER) (test PSEUDOMONAS SPECIES 4+ Pseudomonas lslj=1550) species Amikacin (test code=1) Susceptible 0-16 , Resistant <0 or >16 Aztreonam (test Susceptible 0-8 , code=32) Resistant <0 or >8 Cefepime (test code=51) Susceptible 0-8 , Resistant <0 or >8 Ceftazidime (test Susceptible 0-8 , code=27) Resistant <0 or >8 Ciprofloxacin (test Susceptible 0-1 , code=7) Resistant <0 or >1 Gentamicin (test Susceptible 0-4 , code=18) Resistant <0 or >4 Levofloxacin (test Susceptible 0-2 , code=22) Resistant <0 or >2 Meropenem (test Susceptible 0-4 , code=34) Resistant <0 or >4 Piperacillin + Susceptible 0-16 , Tazobactam (test Resistant <0 or >16 code=29) Tobramycin (test Susceptible 0-4 , code=25) Resistant <0 or >4 CULTURE (BEAKER) (test PSEUDOMONAS 4+ Pseudomonas casj=5049) AERUGINOSA aeruginosa (MUCOID-PHENOTYPE) (Mucoid-phenotype)of a second type Amikacin (test code=1) Susceptible 0-16 , Resistant <0 or >16 Aztreonam (test Susceptible 0-8 , code=32) Resistant <0 or >8 Cefepime (test code=51) Susceptible 0-8 , Resistant <0 or >8 Ceftazidime (test Susceptible 0-8 , code=27) Resistant <0 or >8 Ciprofloxacin (test Susceptible 0-1 , code=7) Resistant <0 or >1 Gentamicin (test Susceptible 0-4 , code=18) Resistant <0 or >4 Levofloxacin (test Susceptible 0-2 , code=22) Resistant <0 or >2 Meropenem (test Susceptible 0-2 , code=34) Resistant <0 or >2 Piperacillin (test Susceptible 0-16 , code=24) Resistant <0 or >16 Piperacillin + Susceptible 0-16 , Tazobactam (test Resistant <0 or >16 code=29) Tobramycin (test Susceptible 0-4 , code=25) Resistant <0 or >4 3+ Normal respiratory derick presentPOCT-GLUCOSE [id number] 13:25:00 Test Item Value Reference Range Comments POC-GLUCOSE METER (BEAKER) 178 mg/dL 70-[address] [facility] [address] [facility] (test xbnv=1608) [facility] [address] [id number] 11:51:00 Test Item Value Reference Range Comments POTASSIUM (BEAKER) (test liuq=242) 4.6 meq/L 3.5-5.1 BASIC METABOLIC [id number] 10:31:00 Test Item Value Reference Range Comments SODIUM (BEAKER) (test 136 meq/L 136-145 yspc=811) POTASSIUM (BEAKER) (test 5.6 meq/L 3.5-5.1 flfx=175) CHLORIDE (BEAKER) (test 95 meq/L 98-107 xzel=949) CO2 (BEAKER) (test 36 meq/L 22-29 ltpd=287) BLOOD UREA NITROGEN 20 mg/dL 7-21 (BEAKER) (test qggm=858) CREATININE (BEAKER) (test 0.66 mg/dL 0.57-1.25 gqyz=991) GLUCOSE RANDOM (BEAKER) 182 mg/dL 70-105 (test owwn=908) CALCIUM (BEAKER) (test 8.6 mg/dL 8.4-10.2 zlam=451) EGFR (BEAKER) (test 131 mL/min/1.73 sq m ESTIMATED GFR IS NOT gubg=0729) ACCURATE CREATININE CLEARANCE IN PREDICTING GLOMERULAR FILTRATION RATE. ESTIMATED GFR IS NOT APPLICABLE FOR DIALYSIS PATIENTS. [id number] 10:26:00 Test Item Value Reference Range Comments MAGNESIUM (BEAKER) (test msmk=560) 1.6 mg/dL 1.6-2.6 POCT-GLUCOSE [id number] 09:00:00 Test Item Value Reference Range Comments POC-GLUCOSE METER (BEAKER) 217 mg/dL 70-110 TESTED AT [address] (test jgcv=2527) [place] [address] POCT-GLUCOSE [id number] 22:17:00 Test Item Value Reference Range Comments POC-GLUCOSE METER (BEAKER) 144 mg/dL 70-110 TESTED AT [address] (test wkdu=3705) [facility] [address] POCT-GLUCOSE [id number] 21:22:00 Test Item Value Reference Range Comments POC-GLUCOSE METER (BEAKER) 239 mg/dL 70-110 TESTED AT [address] (test whdl=3765) [place] [address] POCT-GLUCOSE [id number] 14:57:00 Test Item Value Reference Range Comments POC-GLUCOSE METER (BEAKER) 175 mg/dL 70-110 TESTED AT [address] (test xuse=6717) [facility] [address] RAD, ABDOMEN/KUB, 1 VIEW [id number] 14:55:00Reason for exam:->abdominal painFINAL REPORT EXAM: AP abdominal radiograph, 2 images HISTORY PROVIDED: Abdominal pain COMPARISON: 06/26/2018 IMPRESSION:The bowel gas pattern is nonspecific but appears nonobstructive without dilated loops of bowel seen. A large amount of stool is seen within the colon compatible with a clinical diagnosis of constipation. While no definite free air is seen, this examination is insensitive for the detection of free air. No suspicious calcifications. Calcification adjacent to the left hip is again seen. No acute osseous abnormality. Signed: Leonarda Woodall MDReport Verified Date/Time: 14:55:58 Reading Location: [facility] Mammo Reading Room POCT- GLUCOSE [id number] 11:49:00 Test Item Value Reference Range Comments POC-GLUCOSE METER (BEAKER) 137 mg/dL 70-110 TESTED AT [address] (test vdha=7968) [facility] [address] POCT-GLUCOSE [id number] 08:36:00 Test Item Value Reference Range Comments POC-GLUCOSE METER (BEAKER) 106 mg/dL 70-110 TESTED AT [address] (test gsdt=6037) [place] [address] BASIC METABOLIC [id number] 06:35:00 Test Item Value Reference Range Comments SODIUM (BEAKER) (test 142 meq/L 136-145 zwvb=581) POTASSIUM (BEAKER) (test 3.9 meq/L 3.5-5.1 hjsa=111) CHLORIDE (BEAKER) (test 95 meq/L 98-107 qbwf=352) CO2 (BEAKER) (test 39 meq/L 22-29 sgfd=114) BLOOD UREA NITROGEN 22 mg/dL 7-21 (BEAKER) (test ghlh=509) CREATININE (BEAKER) (test 0.61 mg/dL 0.57-1.25 fahy=097) GLUCOSE RANDOM (BEAKER) 47 mg/dL 70-105 (test eiyb=624) CALCIUM (BEAKER) (test 8.6 mg/dL 8.4-10.2 ghkz=743) EGFR (BEAKER) (test 144 mL/min/1.73 sq m ESTIMATED GFR IS NOT iaid=4768) ACCURATE CREATININE CLEARANCE IN PREDICTING GLOMERULAR FILTRATION RATE. ESTIMATED GFR IS NOT APPLICABLE FOR DIALYSIS PATIENTS. [id number] 06:35:00 Test Item Value Reference Range Comments MAGNESIUM (BEAKER) (test kymc=720) 1.4 mg/dL 1.6-2.6 BASIC METABOLIC [id number] 06:35:00 Test Item Value Reference Range Comments SODIUM (BEAKER) (test 141 meq/L 136-145 jmpe=865) POTASSIUM (BEAKER) (test 3.9 meq/L 3.5-5.1 zrbp=775) CHLORIDE (BEAKER) (test 95 meq/L 98-107 fnol=371) CO2 (BEAKER) (test 39 meq/L 22-29 rgfk=178) BLOOD UREA NITROGEN 22 mg/dL 7-21 (BEAKER) (test cbty=398) CREATININE (BEAKER) (test 0.61 mg/dL 0.57-1.25 rami=052) GLUCOSE RANDOM (BEAKER) 46 mg/dL 70-105 (test cmyz=127) CALCIUM (BEAKER) (test 8.6 mg/dL 8.4-10.2 kmwz=169) EGFR (BEAKER) (test 144 mL/min/1.73 sq m ESTIMATED GFR IS NOT owul=7573) ACCURATE CREATININE CLEARANCE IN PREDICTING GLOMERULAR FILTRATION RATE. ESTIMATED GFR IS NOT APPLICABLE FOR DIALYSIS PATIENTS. POCT-GLUCOSE [id number] 23:02:00 Test Item Value Reference Range Comments POC-GLUCOSE METER (BEAKER) 142 mg/dL 70-110 TESTED AT [address] (test wfhh=7441) [place] [address] POCT-GLUCOSE [id number] 19:53:00 Test Item Value Reference Range Comments POC-GLUCOSE METER (BEAKER) 281 mg/dL 70-110 TESTED AT [address] (test yufr=1976) [place] [address] POCT-GLUCOSE [id number] 15:30:00 Test Item Value Reference Range Comments POC-GLUCOSE METER (BEAKER) 155 mg/dL 70-110 TESTED AT [address] (test pyth=4843) [place] [address] POCT-GLUCOSE [id number] 09:06:00 Test Item Value Reference Range Comments POC-GLUCOSE METER (BEAKER) 97 mg/dL 70-110 TESTED AT [address] (test wtks=3088) [place] [address] POCT-GLUCOSE [id number] 21:52:00 Test Item Value Reference Range Comments POC-GLUCOSE METER (BEAKER) 339 mg/dL 70-110 Notified JORDON STAPLETON/TESTED AT [facility] (test gcpg=7828) [address] [place] [address] POCT-GLUCOSE [id number] 18:04:00 Test Item Value Reference Range Comments POC-GLUCOSE METER (BEAKER) > mg/dL 70-110 OUTSIDE MEASURING RANGETESTED AT (test kbvm=6834) [address] [address] POCT-GLUCOSE [id number] 17:40:00 Test Item Value Reference Range Comments POC-GLUCOSE METER (BEAKER) 49 mg/dL 70-110 TESTED AT [address] (test attd=6081) [facility] [address] POCT-GLUCOSE [id number] 08:23:00 Test Item Value Reference Range Comments POC-GLUCOSE METER (BEAKER) 70 mg/dL 70-110 TESTED AT [address] (test qcwp=0521) [place] [address] POCT-GLUCOSE [id number] 01:59:00 Test Item Value Reference Range Comments POC-GLUCOSE METER (BEAKER) 161 mg/dL 70-110 TESTED AT [address] (test czkf=7387) [place] [address] POCT-GLUCOSE [id number] 21:38:00 Test Item Value Reference Range Comments POC-GLUCOSE METER (BEAKER) 113 mg/dL 70-110 TESTED AT [address] (test fsii=6818) [place] [address] POCT-GLUCOSE [id number] 17:47:00 Test Item Value Reference Range Comments POC-GLUCOSE METER (BEAKER) 139 mg/dL 70-110 TESTED AT [address] (test idna=2577) [place] [address] POCT-GLUCOSE [id number] 12:13:00 Test Item Value Reference Range Comments POC-GLUCOSE METER (BEAKER) 172 mg/dL 70-110 TESTED AT [address] (test wgfs=7864) [place] [address] BASIC METABOLIC [id number] 09:30:00 Test Item Value Reference Range Comments SODIUM (BEAKER) (test 139 meq/L 136-145 tmpj=587) POTASSIUM (BEAKER) (test 4.2 meq/L 3.5-5.1 wtxc=414) CHLORIDE (BEAKER) (test 94 meq/L 98-107 bnvg=315) CO2 (BEAKER) (test 37 meq/L 22-29 mkse=398) BLOOD UREA NITROGEN 19 mg/dL 7-21 (BEAKER) (test kxhi=924) CREATININE (BEAKER) (test 0.59 mg/dL 0.57-1.25 sqrc=236) GLUCOSE RANDOM (BEAKER) 101 mg/dL 70-105 (test qqrg=962) CALCIUM (BEAKER) (test 8.1 mg/dL 8.4-10.2 mbkz=196) EGFR (BEAKER) (test 149 mL/min/1.73 sq m ESTIMATED GFR IS NOT cqcz=8870) ACCURATE CREATININE CLEARANCE IN PREDICTING GLOMERULAR FILTRATION RATE. ESTIMATED GFR IS NOT APPLICABLE FOR DIALYSIS PATIENTS. POCT-GLUCOSE [id number] 08:40:00 Test Item Value Reference Range Comments POC-GLUCOSE METER (BEAKER) 100 mg/dL 70-110 TESTED AT [address] (test sqks=8861) [place] [address] POCT-GLUCOSE [id number] 01:48:00 Test Item Value Reference Range Comments POC-GLUCOSE METER (BEAKER) 186 mg/dL 70-110 TESTED AT [address] (test bxbd=6614) [place] [address] BLOOD [id number] 00:00:00 Test Item Value Reference Range Comments CULTURE (BEAKER) (test zumm=9750) No growth in 5 days POCT-GLUCOSE [id number] 21:54:00 Test Item Value Reference Range Comments POC-GLUCOSE METER (BEAKER) 232 mg/dL 70-110 TESTED AT [address] (test atek=0440) [place] [address] POCT-GLUCOSE [id number] 18:20:00 Test Item Value Reference Range Comments POC-GLUCOSE METER (BEAKER) 223 mg/dL 70-110 TESTED AT [address] (test tmkk=1839) [place] [address] POCT-GLUCOSE [id number] 10:25:00 Test Item Value Reference Range Comments POC-GLUCOSE METER (BEAKER) 230 mg/dL 70-110 TESTED AT [address] (test nyjz=2982) [place] [address] BASIC METABOLIC [id number] 08:57:00 Test Item Value Reference Range Comments SODIUM (BEAKER) (test 142 meq/L 136-145 wnex=426) POTASSIUM (BEAKER) (test 4.0 meq/L 3.5-5.1 shar=581) CHLORIDE (BEAKER) (test 99 meq/L 98-107 llry=165) CO2 (BEAKER) (test 39 meq/L 22-29 cqdf=116) BLOOD UREA NITROGEN 18 mg/dL 7-21 (BEAKER) (test zsos=137) CREATININE (BEAKER) (test 0.60 mg/dL 0.57-1.25 csea=417) GLUCOSE RANDOM (BEAKER) 56 mg/dL 70-105 (test scor=582) CALCIUM (BEAKER) (test 8.2 mg/dL 8.4-10.2 teqb=501) EGFR (BEAKER) (test 146 mL/min/1.73 sq m ESTIMATED GFR IS NOT rwgs=6012) ACCURATE CREATININE CLEARANCE IN PREDICTING GLOMERULAR FILTRATION RATE. ESTIMATED GFR IS NOT APPLICABLE FOR DIALYSIS PATIENTS. POCT-GLUCOSE [id number] 08:43:00 Test Item Value Reference Range Comments POC-GLUCOSE METER (BEAKER) 68 mg/dL 70-110 TESTED AT [address] (test eati=0630) [facility] [address] POCT-GLUCOSE [id number] 01:17:00 Test Item Value Reference Range Comments POC-GLUCOSE METER (BEAKER) 160 mg/dL 70-110 TESTED AT [address] (test beqi=4732) [place] [id number] POCT-GLUCOSE [id number] 19:47:00 Test Item Value Reference Range Comments POC-GLUCOSE METER (BEAKER) 193 mg/dL 70-110 TESTED AT [address] (test cefu=3655) [place] [address] POCT-GLUCOSE [id number] 15:44:00 Test Item Value Reference Range Comments POC-GLUCOSE METER (BEAKER) 80 mg/dL 70-110 TESTED AT [address] (test tgca=9702) [place] [address] POCT-GLUCOSE [id number] 14:11:00 Test Item Value Reference Range Comments POC-GLUCOSE METER (BEAKER) 78 mg/dL 70-110 TESTED AT [address] (test hwvu=3059) [place] [address] POCT-GLUCOSE [id number] 12:59:00 Test Item Value Reference Range Comments POC-GLUCOSE METER (BEAKER) 57 mg/dL 70-110 Notified JORDON STAPLETON/TESTED AT [facility] (test fhgv=2543) [address] [facility] [address] POCT-GLUCOSE [id number] 12:21:00 Test Item Value Reference Range Comments POC-GLUCOSE METER (BEAKER) 67 mg/dL 70-110 Notified JORDON STAPLETON/TESTED AT [facility] (test npbp=7936) [address] [facility] [address] POCT-GLUCOSE [id number] 09:53:00 Test Item Value Reference Range Comments POC-GLUCOSE METER (BEAKER) 170 mg/dL 70-110 TESTED AT [address] (test ativ=0120) [facility] [address] POCT-GLUCOSE [id number] 08:38:00 Test Item Value Reference Range Comments POC-GLUCOSE METER (BEAKER) 52 mg/dL 70-110 Notified JORDON STAPLETON/TESTED AT [facility] (test mxwi=1750) [address] [place] [address] BASIC METABOLIC [id number] 07:10:00 Test Item Value Reference Range Comments SODIUM (BEAKER) (test 140 meq/L 136-145 lqgb=332) POTASSIUM (BEAKER) (test 3.3 meq/L 3.5-5.1 skjf=362) CHLORIDE (BEAKER) (test 97 meq/L 98-107 xqrr=641) CO2 (BEAKER) (test 34 meq/L 22-29 skbe=570) BLOOD UREA NITROGEN 13 mg/dL 7-21 (BEAKER) (test bnfw=196) CREATININE (BEAKER) (test 0.62 mg/dL 0.57-1.25 igvo=071) GLUCOSE RANDOM (BEAKER) 51 mg/dL 70-105 (test ohbl=895) CALCIUM (BEAKER) (test 8.5 mg/dL 8.4-10.2 btkm=846) EGFR (BEAKER) (test 141 mL/min/1.73 sq m ESTIMATED GFR IS NOT yult=9771) ACCURATE CREATININE CLEARANCE IN PREDICTING GLOMERULAR FILTRATION RATE. ESTIMATED GFR IS NOT APPLICABLE FOR DIALYSIS PATIENTS. PROTEIN, RANDOM [id number] 22:37:00 Test Item Value Reference Range Comments PROTEIN, URINE (BEAKER) (test aptz=5647) 235 mg/dL 0-14 CREATININE, RANDOM [id number] 22:35:00 Test Item Value Reference Range Comments CREATININE URINE (BEAKER) (test rtdr=998) 84.6 mg/dL Reference Range: No NormalsPOCT-GLUCOSE [id number] 21:41:00 Test Item Value Reference Range Comments POC-GLUCOSE METER (BEAKER) 292 mg/dL 70-110 TESTED AT [address] (test gcwa=6329) [place] [address] POCT-GLUCOSE [id number] 17:51:00 Test Item Value Reference Range Comments POC-GLUCOSE METER (BEAKER) 241 mg/dL 70-110 TESTED AT [address] (test ryoc=2354) [place] [address] POCT-GLUCOSE [id number] 12:32:00 Test Item Value Reference Range Comments POC-GLUCOSE METER (BEAKER) 123 mg/dL 70-110 TESTED AT [address] (test wbxq=8977) [place] [address] POCT-GLUCOSE [id number] 08:24:00 Test Item Value Reference Range Comments POC-GLUCOSE METER (BEAKER) 408 mg/dL 70-110 Notified JORDON STAPLETON/TESTED AT [facility] (test zvzo=9953) [address] [place] [address] [id number] 07:32:00 Test Item Value Reference Range Comments BLOOD UREA NITROGEN (BEAKER) (test saxh=494) 15 mg/dL 7-21 [id number] 07:32:00 Test Item Value Reference Range Comments CREATININE (BEAKER) (test 0.73 mg/dL 0.57-1.25 aqgh=620) EGFR (BEAKER) (test 117 mL/min/1.73 sq m ESTIMATED GFR IS NOT slvt=0664) ACCURATE CREATININE CLEARANCE IN PREDICTING GLOMERULAR FILTRATION RATE. ESTIMATED GFR IS NOT APPLICABLE FOR DIALYSIS PATIENTS. POCT-GLUCOSE [id number] 21:43:00 Test Item Value Reference Range Comments POC-GLUCOSE METER (BEAKER) 192 mg/dL 70-110 TESTED AT [address] (test lwwb=5041) [place] [address] POCT-GLUCOSE [id number] 17:46:00 Test Item Value Reference Range Comments POC-GLUCOSE METER (BEAKER) 147 mg/dL 70-110 TESTED AT [address] (test eear=6997) [place] [address] POCT-GLUCOSE [id number] 12:38:00 Test Item Value Reference Range Comments POC-GLUCOSE METER (BEAKER) 203 mg/dL 70-[address] [facility] [address] [facility] (test eqiu=8063) [facility] [place] [address] HEMOGLOBIN [id number] 11:18:00 Test Item Value Reference Range Comments HEMOGLOBIN A1C (BEAKER) (test ztay=637) 16.1 % 4.3-6.1 POCT-GLUCOSE [id number] 09:15:00 Test Item Value Reference Range Comments POC-GLUCOSE METER (BEAKER) 330 mg/dL 70-110 Notified JORDON STAPLETON/TESTED AT [facility] (test ffaf=4344) [address] [facility] [address] [id number] 07:34:00 Test Item Value Reference Range Comments CREATININE (BEAKER) (test 0.83 mg/dL 0.57-1.25 Specimen slightly bsyo=396) hemolyzed EGFR (BEAKER) (test 101 mL/min/1.73 sq m ESTIMATED GFR IS NOT hkhs=6685) ACCURATE CREATININE CLEARANCE IN PREDICTING GLOMERULAR FILTRATION RATE. ESTIMATED GFR IS NOT APPLICABLE FOR DIALYSIS PATIENTS. [id number] 07:34:00 Test Item Value Reference Range Comments BLOOD UREA NITROGEN (BEAKER) (test odfr=619) 15 mg/dL 7-21 POCT-GLUCOSE [id number] 01:59:00 Test Item Value Reference Range Comments POC-GLUCOSE METER (BEAKER) 78 mg/dL 70-110 TESTED AT [address] (test mniy=8936) [place] [address] BASIC METABOLIC [id number] 23:00:00 Test Item Value Reference Range Comments SODIUM (BEAKER) (test 135 meq/L 136-145 hyjd=771) POTASSIUM (BEAKER) (test 4.1 meq/L 3.5-5.1 ezpf=408) CHLORIDE (BEAKER) (test 98 meq/L 98-107 awpt=297) CO2 (BEAKER) (test 26 meq/L 22-29 czqo=749) BLOOD UREA NITROGEN 16 mg/dL 7-21 (BEAKER) (test lmyd=037) CREATININE (BEAKER) (test 1.27 mg/dL 0.57-1.25 rgxe=006) GLUCOSE RANDOM (BEAKER) 503 mg/dL 70-105 (test qosr=648) CALCIUM (BEAKER) (test 8.1 mg/dL 8.4-10.2 secm=723) EGFR (BEAKER) (test 62 mL/min/1.73 sq m ESTIMATED GFR IS NOT tvom=0909) ACCURATE CREATININE CLEARANCE IN PREDICTING GLOMERULAR FILTRATION RATE. ESTIMATED GFR IS NOT APPLICABLE FOR DIALYSIS PATIENTS. POCT-GLUCOSE [id number] 21:22:00 Test Item Value Reference Range Comments POC-GLUCOSE METER (BEAKER) > mg/dL 70-110 OUTSIDE MEASURING RANGENotified RN (test pmgx=5459) MD/TESTED AT [facility] [address] [facility] [address] RESPIRATORY PANEL [id number] 18:44:00 Test Item Value Reference Range Comments HUMAN METAPNEUMOVIRUS (BEAKER) (test Not detected Not detected, Equivocal dkem=4031) RHINOVIRUS (BEAKER) (test benl=1834) Not detected Not detected, Equivocal INFLUENZA A (BEAKER) (test jkqd=5375) Not detected Not detected, Equivocal INFLUENZA A (NO SUBTYPE) (test Not detected, Equivocal hshy=4142) INFLUENZA A SUBTYPE H1 (BEAKER) (test Not detected, Equivocal oyxs=6446) INFLUENZA A SUBTYPE H3 (BEAKER) (test Not detected, Equivocal kbdb=3210) INFLUENZA A SUBTYPE H1-2009 (BEAKER) Not detected, Equivocal (test zuzc=0051) INFLUENZA B (BEAKER) (test omfn=6434) Not detected Not detected, Equivocal RESPIRATORY SYNCYTIAL VIRUS (BEAKER) Not detected Not detected, Equivocal (test tedh=4746) PARAINFLUENZA VIRUS 1 (BEAKER) (test Not detected Not detected, Equivocal ccyj=3869) PARAINFLUENZA VIRUS 2 (BEAKER) (test Not detected Not detected, Equivocal udfr=8335) PARAINFLUENZA VIRUS 3 (BEAKER) (test Not detected Not detected, Equivocal upuc=4708) PARAINFLUENZA VIRUS 4 (BEAKER) (test Not detected Not detected, Equivocal boch=9984) ADENOVIRUS (BEAKER) (test refo=0547) Not detected Not detected, Equivocal CORONAVIRUS 229E (BEAKER) (test Not detected Not detected, Equivocal ould=2643) CORONAVIRUS HKU1 (BEAKER) (test Not detected Not detected, Equivocal bszp=9246) CORONAVIRUS NL63 (BEAKER) (test Not detected Not detected, Equivocal sspb=6601) CORONAVIRUS OC43 (BEAKER) (test Not detected Not detected, Equivocal mnkj=5032) BORDETELLA PERTUSSIS (BEAKER) (test Not detected Not detected, Equivocal unoi=6176) CHLAMYDOPHILA PNEUMONIAE (BEAKER) (test Not detected Not detected, Equivocal gyye=9395) MYCOPLASMA PNEUMONIAE (BEAKER) (test Not detected Not detected, Equivocal fkur=3728) Other viruses and bacteria not targeted by this PCR panel cannot be excluded; therefore clinical correlation and follow up of serology, culture results, and other molecular studies is required. The results are not intended to be used as the sole means for clinical diagnosis or patient management decisions. This sample was tested at the [facility] using the ViyetArray Respiratory Panel. It is FDA cleared and has been verified and approved by the [facility] for clinical use on nasal swab specimens. It is not FDA-cleared for use on bronchial wash/lavage samples. However, for this sample type, validation was performed and test characteristics were determined and approved, by [facility] for clinical use under the Clinical Laboratory Improvement Amendments (CLIA) of 1988 requirements. Therefore, FDA clearance isnot required. This laboratory is CLIA-certified and [employer] ([employer])-accredited to perform high complexity testing.POCT-GLUCOSE [id number] 18:36:00 Test Item Value Reference Range Comments POC-GLUCOSE METER (BEAKER) > mg/dL 70-110 OUTSIDE MEASURING RANGETESTED AT (test uyhc=3268) [place] [address] SPIN/CONCENTRATION [id number] 12:46:00 Test Item Value Reference Range Comments CONCENTRATION CHARGED (BEAKER) (test espg=6114) Done POCT-GLUCOSE [id number] 12:21:00 Test Item Value Reference Range Comments POC-GLUCOSE METER (BEAKER) 286 mg/dL 70-110 TESTED AT [address] (test kpjx=7260) [place] [address] POCT-GLUCOSE [id number] 08:25:00 Test Item Value Reference Range Comments POC-GLUCOSE METER (BEAKER) 295 mg/dL 70-110 TESTED AT [address] (test talf=1075) [place] [address] [id number] 07:37:00 Test Item Value Reference Range Comments BLOOD UREA NITROGEN (BEAKER) (test elvi=040) 5 mg/dL 7-21 [id number] 07:37:00 Test Item Value Reference Range Comments CREATININE (BEAKER) (test 0.64 mg/dL 0.57-1.25 Specimen slightly nsvr=372) hemolyzed EGFR (BEAKER) (test 136 mL/min/1.73 sq m ESTIMATED GFR IS NOT drbt=9666) ACCURATE CREATININE CLEARANCE IN PREDICTING GLOMERULAR FILTRATION RATE. ESTIMATED GFR IS NOT APPLICABLE FOR DIALYSIS PATIENTS. POCT-GLUCOSE [id number] 06:33:00 Test Item Value Reference Range Comments POC-GLUCOSE METER (KIAKER) 44 mg/dL 70-110 Notified JORDON STAPLETON/TESTED AT [facility] (test wske=7461) [address] [place] [address] POCT-GLUCOSE [id number] 03:10:00 Test Item Value Reference Range Comments POC-GLUCOSE METER (SIMI) 406 mg/dL 70-110 Notified JORDON STAPLETON/TESTED AT [facility] (test jxsw=7334) [address] [place] [address] RAD, CHEST, 2 [id number] 22:01:00Reason for exam:->COUGHReason for exam: ->SHORTNESS OF BREATHShould this be performed at the bedside?->NoIs the patient ?->UnknownFINAL REPORT TECHNIQUE: 2 views of the chest. COMPARISON: 06/26/2018 FINDINGS:The cardiac silhouette is within normal limits. Mediastinum is unremarkable. Bilateral interstitialand airspace opacities with areas of bronchiectasis and cystic changes again noted compatible with cystic fibrosis. No new lung parenchymal changes. No large effusions or pneumothorax. No acute skeletal abnormality. Right internal jugular chest port noted with tip at the cavoatrial junction. IMPRESSION: No acute cardiopulmonary disease. No significant change from previous. Signed: Lg Valdez MDReport Verified Date/Time: 08/15/2018 22:01:46 Reading Location: [facility] Reading Room Electronically signed by: LG VALDEZ M.D. on 10:01 PMPREGNANCY SCREEN, [id number] 21:12:00 Test Item Value Reference Range Comments TEST URINE (BEAKER) (test aoux=780) Negative COMPREHENSIVE METABOLIC [id number] 17:43:00 Test Item Value Reference Range Comments TOTAL PROTEIN (BEAKER) 7.0 gm/dL 6.0-8.3 (test enwb=383) ALBUMIN (BEAKER) (test 2.5 g/dL 3.5-5.0 xxek=3395) ALKALINE PHOSPHATASE 162 U/L 40-150 (BEAKER) (test ipcr=190) BILIRUBIN TOTAL (BEAKER) 0.2 mg/dL 0.2-1.2 (test sbgm=290) SODIUM (BEAKER) (test 141 meq/L 136-145 izbj=808) POTASSIUM (BEAKER) (test 4.0 meq/L 3.5-5.1 yeqy=379) CHLORIDE (BEAKER) (test 102 meq/L 98-107 hjxe=340) CO2 (BEAKER) (test 30 meq/L 22-29 gafl=781) BLOOD UREA NITROGEN 5 mg/dL 7-21 (BEAKER) (test kcnv=286) CREATININE (BEAKER) (test 0.69 mg/dL 0.57-1.25 kshf=387) GLUCOSE RANDOM (BEAKER) 321 mg/dL 70-105 (test writ=251) CALCIUM (BEAKER) (test 9.2 mg/dL 8.4-10.2 deqe=088) AST (SGOT) (BEAKER) (test 12 U/L 5-34 iqwh=905) ALT (SGPT) (BEAKER) (test 8 U/L 6-55 xivo=695) EGFR (BEAKER) (test 125 mL/min/1.73 sq ESTIMATED GFR IS NOT dnih=8517) m ACCURATE CREATININE CLEARANCE IN PREDICTING GLOMERULAR FILTRATION RATE. ESTIMATED GFR IS NOT APPLICABLE FOR DIALYSIS PATIENTS. POCT-LACTIC ACID, [id number] 17:20:00 Test Item Value Reference Range Comments POC-LACTIC ACID, VENOUS 1.4 mmol/L 0.9-1.[address] [facility] [address] (BEAKER) (test oxqd=3056) [place] [address] CBC W/PLT COUNT & AUTO [id number] 17:20:00 Test Item Value Reference Range Comments WHITE BLOOD CELL COUNT (BEAKER) (test pqrs=275) 8.5 K/ L 3.5-10.5 RED BLOOD CELL COUNT (BEAKER) (test ccsg=987) 4.40 M/ L 3.93-5.22 HEMOGLOBIN (BEAKER) (test zxza=032) 11.3 GM/DL 11.2-15.7 HEMATOCRIT (BEAKER) (test tkmo=854) 37.6 % 34.1-44.9 MEAN CORPUSCULAR VOLUME (BEAKER) (test mkim=357) 85.5 fL 79.4-94.8 MEAN CORPUSCULAR HEMOGLOBIN (BEAKER) (test 25.7 pg 25.6-32.2 vqqr=028) MEAN CORPUSCULAR HEMOGLOBIN CONC (BEAKER) (test 30.1 GM/DL 32.2-35.5 vuzn=397) RED CELL DISTRIBUTION WIDTH (BEAKER) (test 15.1 % 11.7-14.4 nwhk=143) PLATELET COUNT (BEAKER) (test pahx=756) 391 K/CU MM 150-450 MEAN PLATELET VOLUME (BEAKER) (test mdld=465) 10.6 fL 9.4-12.3 NUCLEATED RED BLOOD CELLS (BEAKER) (test 0 /100 WBC 0-0 essx=502) NEUTROPHILS RELATIVE PERCENT (BEAKER) (test 69 % iqcr=318) LYMPHOCYTES RELATIVE PERCENT (BEAKER) (test 19 % dczu=830) MONOCYTES RELATIVE PERCENT (BEAKER) (test 7 % cuob=618) EOSINOPHILS RELATIVE PERCENT (BEAKER) (test 5 % pqtz=667) BASOPHILS RELATIVE PERCENT (BEAKER) (test 1 % cmqw=638) NEUTROPHILS ABSOLUTE COUNT (BEAKER) (test 5.83 K/ L 1.56-6.13 rrqm=933) LYMPHOCYTES ABSOLUTE COUNT (BEAKER) (test 1.61 K/ L 1.18-3.74 merf=390) MONOCYTES ABSOLUTE COUNT (BEAKER) (test 0.56 K/ L 0.24-0.36 gmqw=810) EOSINOPHILS ABSOLUTE COUNT (BEAKER) (test 0.44 K/ L 0.04-0.36 hija=355) BASOPHILS ABSOLUTE COUNT (BEAKER) (test 0.05 K/ L 0.01-0.08 vone=366) IMMATURE GRANULOCYTES-RELATIVE PERCENT (BEAKER) 0 % 0-1 (test rztf=6590) AFB CULTURE + [id number] 13:38:00 Test Item Value Reference Range Comments CULTURE (BEAKER) (test No acid-fast bacilli isolated brrk=1356) in 42 days AFB SMEAR (BEAKER) (test No acid fast bacilli seen iltk=567) POCT-GLUCOSE [id number] 08:03:00 Test Item Value Reference Range Comments POC-GLUCOSE METER (BEAKER) 169 mg/dL 70-110 TESTED AT [address] (test zyzi=3842) [place] [address] BUN AND [id number] 06:31:00 Test Item Value Reference Range Comments BLOOD UREA NITROGEN 25 mg/dL 7-21 (BEAKER) (test cdlj=456) CREATININE (BEAKER) (test 0.70 mg/dL 0.57-1.25 xsjz=211) EGFR (BEAKER) (test 124 mL/min/1.73 sq m ESTIMATED GFR IS NOT ppyb=1816) ACCURATE CREATININE CLEARANCE IN PREDICTING GLOMERULAR FILTRATION RATE. ESTIMATED GFR IS NOT APPLICABLE FOR DIALYSIS PATIENTS. POCT-GLUCOSE [id number] 23:55:00 Test Item Value Reference Range Comments POC-GLUCOSE METER (BEAKER) 179 mg/dL 70-110 TESTED AT [address] (test hfee=9197) [place] [address] POCT-GLUCOSE [id number] 17:30:00 Test Item Value Reference Range Comments POC-GLUCOSE METER (BEAKER) 216 mg/dL 70-110 TESTED AT [address] (test lwyk=7687) [place] [address] POCT-GLUCOSE [id number] 11:49:00 Test Item Value Reference Range Comments POC-GLUCOSE METER (BEAKER) 97 mg/dL 70-110 TESTED AT [address] (test irie=9995) [place] [address] POCT-GLUCOSE [id number] 08:09:00 Test Item Value Reference Range Comments POC-GLUCOSE METER (BEAKER) 72 mg/dL 70-110 TESTED AT [address] (test qmhr=9325) [place] [address] BUN AND [id number] 08:08:00 Test Item Value Reference Range Comments BLOOD UREA NITROGEN 23 mg/dL 7-21 (BEAKER) (test dpsz=604) CREATININE (BEAKER) (test 0.62 mg/dL 0.57-1.25 jmpr=818) EGFR (BEAKER) (test 142 mL/min/1.73 sq m ESTIMATED GFR IS NOT fyru=0832) ACCURATE CREATININE CLEARANCE IN PREDICTING GLOMERULAR FILTRATION RATE. ESTIMATED GFR IS NOT APPLICABLE FOR DIALYSIS PATIENTS. POCT-GLUCOSE [id number] 21:04:00 Test Item Value Reference Range Comments POC-GLUCOSE METER (BEAKER) 143 mg/dL 70-110 TESTED AT [address] (test siwk=9071) [place] [address] POCT-GLUCOSE [id number] 17:36:00 Test Item Value Reference Range Comments POC-GLUCOSE METER (BEAKER) 195 mg/dL 70-110 TESTED AT [address] (test dggh=0378) [place] [address] POCT-GLUCOSE [id number] 12:58:00 Test Item Value Reference Range Comments POC-GLUCOSE METER (BEAKER) 73 mg/dL 70-110 TESTED AT [address] (test jmbk=7279) [place] [address] POCT-GLUCOSE [id number] 08:07:00 Test Item Value Reference Range Comments POC-GLUCOSE METER (BEAKER) 320 mg/dL 70-110 Notified RN or MD Patient (test uesg=1867) refused repeat test/TESTED AT [place] [id number] BUN AND [id number] 07:07:00 Test Item Value Reference Range Comments BLOOD UREA NITROGEN 25 mg/dL 7-21 (BEAKER) (test dlqy=090) CREATININE (BEAKER) (test 0.92 mg/dL 0.57-1.25 Specimen slightly hvfk=213) hemolyzed EGFR (BEAKER) (test 90 mL/min/1.73 sq m ESTIMATED GFR IS NOT yszm=2889) ACCURATE CREATININE CLEARANCE IN PREDICTING GLOMERULAR FILTRATION RATE. ESTIMATED GFR IS NOT APPLICABLE FOR DIALYSIS PATIENTS. CBC W/PLT COUNT & AUTO [id number] 06:10:00 Test Item Value Reference Range Comments WHITE BLOOD CELL COUNT (BEAKER) (test dtnt=708) 14.1 K/ L 3.5-10.5 RED BLOOD CELL COUNT (BEAKER) (test czyb=761) 3.56 M/ L 3.93-5.22 HEMOGLOBIN (BEAKER) (test nduo=842) 9.4 GM/DL 11.2-15.7 HEMATOCRIT (BEAKER) (test xkqv=398) 32.4 % 34.1-44.9 MEAN CORPUSCULAR VOLUME (BEAKER) (test xhow=302) 91.0 fL 79.4-94.8 MEAN CORPUSCULAR HEMOGLOBIN (BEAKER) (test 26.4 pg 25.6-32.2 axhq=570) MEAN CORPUSCULAR HEMOGLOBIN CONC (BEAKER) (test 29.0 GM/DL 32.2-35.5 juhw=340) RED CELL DISTRIBUTION WIDTH (BEAKER) (test 19.9 % 11.7-14.4 wghf=746) PLATELET COUNT (BEAKER) (test uswp=114) 348 K/CU MM 150-450 MEAN PLATELET VOLUME (BEAKER) (test fula=066) 10.8 fL 9.4-12.3 NUCLEATED RED BLOOD CELLS (BEAKER) (test 0 /100 WBC 0-0 oisc=958) NEUTROPHILS RELATIVE PERCENT (BEAKER) (test 81 % rodl=192) LYMPHOCYTES RELATIVE PERCENT (BEAKER) (test 10 % fegf=539) MONOCYTES RELATIVE PERCENT (BEAKER) (test 8 % erna=678) EOSINOPHILS RELATIVE PERCENT (BEAKER) (test 0 % xdyq=880) BASOPHILS RELATIVE PERCENT (BEAKER) (test 0 % yoya=310) NEUTROPHILS ABSOLUTE COUNT (BEAKER) (test 11.47 K/ L 1.56-6.13 szsb=586) LYMPHOCYTES ABSOLUTE COUNT (BEAKER) (test 1.37 K/ L 1.18-3.74 sgyx=460) MONOCYTES ABSOLUTE COUNT (BEAKER) (test 1.08 K/ L 0.24-0.36 mwrk=000) EOSINOPHILS ABSOLUTE COUNT (BEAKER) (test 0.03 K/ L 0.04-0.36 dusx=136) BASOPHILS ABSOLUTE COUNT (BEAKER) (test 0.02 K/ L 0.01-0.08 hdjv=430) IMMATURE GRANULOCYTES-RELATIVE PERCENT (BEAKER) 1 % 0-1 (test kdif=7357) POCT-GLUCOSE [id number] 22:03:00 Test Item Value Reference Range Comments POC-GLUCOSE METER (BEAKER) 96 mg/dL 70-110 TESTED AT [address] (test hzyc=8520) [place] [address] POCT-GLUCOSE [id number] 21:57:00 Test Item Value Reference Range Comments POC-GLUCOSE METER (BEAKER) 67 mg/dL 70-110 Notified JORDON STAPLETON/TESTED AT [facility] (test xvov=2566) [address] [place] [address] POCT-GLUCOSE [id number] 17:48:00 Test Item Value Reference Range Comments POC-GLUCOSE METER (BEAKER) 210 mg/dL 70-110 TESTED AT [address] (test gcoo=8875) [place] [address] POCT-GLUCOSE [id number] 12:42:00 Test Item Value Reference Range Comments POC-GLUCOSE METER (BEAKER) 193 mg/dL 70-110 TESTED AT [address] (test obzl=9054) [place] [address] POCT-GLUCOSE [id number] 08:38:00 Test Item Value Reference Range Comments POC-GLUCOSE METER (BEAKER) 139 mg/dL 70-110 TESTED AT [address] (test gnnw=2530) [place] [address] BASIC METABOLIC [id number] 06:31:00 Test Item Value Reference Range Comments SODIUM (BEAKER) (test 139 meq/L 136-145 kbqg=082) POTASSIUM (BEAKER) (test 4.4 meq/L 3.5-5.1 tonj=611) CHLORIDE (BEAKER) (test 102 meq/L 98-107 rxpk=037) CO2 (BEAKER) (test 31 meq/L 22-29 vyft=877) BLOOD UREA NITROGEN 19 mg/dL 7-21 (BEAKER) (test cwnv=572) CREATININE (BEAKER) (test 0.77 mg/dL 0.57-1.25 effv=544) GLUCOSE RANDOM (BEAKER) 264 mg/dL 70-105 (test pvpg=942) CALCIUM (BEAKER) (test 7.9 mg/dL 8.4-10.2 jzjh=313) EGFR (BEAKER) (test 111 mL/min/1.73 sq m ESTIMATED GFR IS NOT ltku=0453) ACCURATE CREATININE CLEARANCE IN PREDICTING GLOMERULAR FILTRATION RATE. ESTIMATED GFR IS NOT APPLICABLE FOR DIALYSIS PATIENTS. BUN AND [id number] 06:30:00 Test Item Value Reference Range Comments BLOOD UREA NITROGEN 19 mg/dL 7-21 (BEAKER) (test vlog=612) CREATININE (BEAKER) (test 0.77 mg/dL 0.57-1.25 qgfq=796) EGFR (BEAKER) (test 111 mL/min/1.73 sq m ESTIMATED GFR IS NOT mvfg=4138) ACCURATE CREATININE CLEARANCE IN PREDICTING GLOMERULAR FILTRATION RATE. ESTIMATED GFR IS NOT APPLICABLE FOR DIALYSIS PATIENTS. CBC W/PLT COUNT & AUTO [id number] 06:11:00 Test Item Value Reference Range Comments WHITE BLOOD CELL COUNT (BEAKER) (test rgku=427) 14.2 K/ L 3.5-10.5 RED BLOOD CELL COUNT (BEAKER) (test wvxu=598) 3.57 M/ L 3.93-5.22 HEMOGLOBIN (BEAKER) (test jbhf=299) 9.4 GM/DL 11.2-15.7 HEMATOCRIT (BEAKER) (test tnqz=452) 32.7 % 34.1-44.9 MEAN CORPUSCULAR VOLUME (BEAKER) (test vbdh=306) 91.6 fL 79.4-94.8 MEAN CORPUSCULAR HEMOGLOBIN (BEAKER) (test 26.3 pg 25.6-32.2 ccrm=870) MEAN CORPUSCULAR HEMOGLOBIN CONC (BEAKER) (test 28.7 GM/DL 32.2-35.5 omgw=798) RED CELL DISTRIBUTION WIDTH (BEAKER) (test 20.0 % 11.7-14.4 bmko=451) PLATELET COUNT (BEAKER) (test uvnd=891) 352 K/CU MM 150-450 MEAN PLATELET VOLUME (BEAKER) (test tahp=837) 10.9 fL 9.4-12.3 NUCLEATED RED BLOOD CELLS (BEAKER) (test 0 /100 WBC 0-0 jltu=982) NEUTROPHILS RELATIVE PERCENT (BEAKER) (test 84 % fwua=282) LYMPHOCYTES RELATIVE PERCENT (BEAKER) (test 8 % wdcj=290) MONOCYTES RELATIVE PERCENT (BEAKER) (test 6 % zzyw=384) EOSINOPHILS RELATIVE PERCENT (BEAKER) (test 0 % etku=116) BASOPHILS RELATIVE PERCENT (BEAKER) (test 0 % kcol=933) NEUTROPHILS ABSOLUTE COUNT (BEAKER) (test 11.96 K/ L 1.56-6.13 yrtu=473) LYMPHOCYTES ABSOLUTE COUNT (BEAKER) (test 1.20 K/ L 1.18-3.74 ccwg=784) MONOCYTES ABSOLUTE COUNT (BEAKER) (test 0.91 K/ L 0.24-0.36 qreg=592) EOSINOPHILS ABSOLUTE COUNT (BEAKER) (test 0.01 K/ L 0.04-0.36 xnqw=244) BASOPHILS ABSOLUTE COUNT (BEAKER) (test 0.02 K/ L 0.01-0.08 nnyq=848) IMMATURE GRANULOCYTES-RELATIVE PERCENT (BEAKER) 1 % 0-1 (test zxyg=4958) POCT-GLUCOSE [id number] 21:38:00 Test Item Value Reference Range Comments POC-GLUCOSE METER (BEAKER) 266 mg/dL 70-110 TESTED AT [address] (test yajv=9990) [place] [address] POCT-GLUCOSE [id number] 17:38:00 Test Item Value Reference Range Comments POC-GLUCOSE METER (BEAKER) 213 mg/dL 70-110 TESTED AT [address] (test unsp=6689) [place] [id number] POCT-GLUCOSE [id number] 13:23:00 Test Item Value Reference Range Comments POC-GLUCOSE METER (BEAKER) 272 mg/dL 70-110 TESTED AT [address] (test ypdt=7223) [place] [id number] POCT-GLUCOSE [id number] 11:56:00 Test Item Value Reference Range Comments POC-GLUCOSE METER (BEAKER) 120 mg/dL 70-110 TESTED AT [address] (test ikri=5687) [place] [id number] POCT-GLUCOSE [id number] 08:20:00 Test Item Value Reference Range Comments POC-GLUCOSE METER (BEAKER) 88 mg/dL 70-110 TESTED AT [address] (test bhvy=1012) [place] [id number] BUN AND [id number] 05:59:00 Test Item Value Reference Range Comments BLOOD UREA NITROGEN 30 mg/dL 7-21 (BEAKER) (test iaoo=218) CREATININE (BEAKER) (test 0.81 mg/dL 0.57-1.25 xhmn=682) EGFR ([facility]) (test 104 mL/min/1.73 sq m ESTIMATED GFR IS NOT jjqi=9745) ACCURATE CREATININE CLEARANCE IN PREDICTING GLOMERULAR FILTRATION RATE. ESTIMATED GFR IS NOT APPLICABLE FOR DIALYSIS PATIENTS. CBC W/PLT COUNT & AUTO [id number] 05:24:00 Test Item Value Reference Range Comments WHITE BLOOD CELL COUNT (BEAKER) (test kmxl=460) 18.1 K/ L 3.5-10.5 RED BLOOD CELL COUNT (BEAKER) (test izxe=060) 3.48 M/ L 3.93-5.22 HEMOGLOBIN (BEAKER) (test zraq=174) 9.2 GM/DL 11.2-15.7 HEMATOCRIT (BEAKER) (test djjb=291) 31.2 % 34.1-44.9 MEAN CORPUSCULAR VOLUME (BEAKER) (test ohiv=819) 89.7 fL 79.4-94.8 MEAN CORPUSCULAR HEMOGLOBIN (BEAKER) (test 26.4 pg 25.6-32.2 nywy=084) MEAN CORPUSCULAR HEMOGLOBIN CONC (BEAKER) (test 29.5 GM/DL 32.2-35.5 tmpo=601) RED CELL DISTRIBUTION WIDTH (BEAKER) (test 20.0 % 11.7-14.4 dxwo=432) PLATELET COUNT (BEAKER) (test ioom=355) 361 K/CU MM 150-450 MEAN PLATELET VOLUME (BEAKER) (test iogf=868) 10.6 fL 9.4-12.3 NUCLEATED RED BLOOD CELLS (BEAKER) (test 0 /100 WBC 0-0 aosp=642) NEUTROPHILS RELATIVE PERCENT (BEAKER) (test 85 % depn=055) LYMPHOCYTES RELATIVE PERCENT (BEAKER) (test 7 % mtdc=900) MONOCYTES RELATIVE PERCENT (BEAKER) (test 7 % jjbx=251) EOSINOPHILS RELATIVE PERCENT (BEAKER) (test 0 % qsbk=462) BASOPHILS RELATIVE PERCENT (BEAKER) (test 0 % nboa=648) NEUTROPHILS ABSOLUTE COUNT (BEAKER) (test 15.39 K/ L 1.56-6.13 vwrq=810) LYMPHOCYTES ABSOLUTE COUNT (BEAKER) (test 1.26 K/ L 1.18-3.74 hldx=247) MONOCYTES ABSOLUTE COUNT (BEAKER) (test 1.18 K/ L 0.24-0.36 vbpv=310) EOSINOPHILS ABSOLUTE COUNT (BEAKER) (test 0.03 K/ L 0.04-0.36 rbdz=975) BASOPHILS ABSOLUTE COUNT (BEAKER) (test 0.03 K/ L 0.01-0.08 oibi=721) IMMATURE GRANULOCYTES-RELATIVE PERCENT (BEAKER) 1 % 0-1 (test viao=7648) POCT-GLUCOSE [id number] 20:50:00 Test Item Value Reference Range Comments POC-GLUCOSE METER (BEAKER) 260 mg/dL 70-110 TESTED AT [address] (test ertm=1759) [place] [id number] POCT-GLUCOSE [id number] 17:30:00 Test Item Value Reference Range Comments POC-GLUCOSE METER (BEAKER) 208 mg/dL 70-110 TESTED AT [address] (test cajq=3389) [place] [address] POCT-GLUCOSE [id number] 12:51:00 Test Item Value Reference Range Comments POC-GLUCOSE METER (BEAKER) 125 mg/dL 70-110 TESTED AT [address] (test uemx=4275) [place] [address] BASIC METABOLIC [id number] 12:22:00 Test Item Value Reference Range Comments SODIUM (BEAKER) (test 141 meq/L 136-145 rvbb=962) POTASSIUM (BEAKER) (test 4.6 meq/L 3.5-5.1 fzyv=170) CHLORIDE (BEAKER) (test 99 meq/L 98-107 qujt=464) CO2 (BEAKER) (test 35 meq/L 22-29 wpcy=031) BLOOD UREA NITROGEN 24 mg/dL 7-21 (BEAKER) (test mkjb=006) CREATININE (BEAKER) (test 0.65 mg/dL 0.57-1.25 hrhi=777) GLUCOSE RANDOM (BEAKER) 57 mg/dL 70-105 (test nnux=660) CALCIUM (BEAKER) (test 9.0 mg/dL 8.4-10.2 pjun=175) EGFR (BEAKER) (test 135 mL/min/1.73 sq m ESTIMATED GFR IS NOT oljq=0864) ACCURATE CREATININE CLEARANCE IN PREDICTING GLOMERULAR FILTRATION RATE. ESTIMATED GFR IS NOT APPLICABLE FOR DIALYSIS PATIENTS. CBC W/PLT COUNT & AUTO [id number] 12:07:00 Test Item Value Reference Range Comments WHITE BLOOD CELL COUNT (BEAKER) (test yhgi=390) 20.6 K/ L 3.5-10.5 RED BLOOD CELL COUNT (BEAKER) (test vsma=853) 3.69 M/ L 3.93-5.22 HEMOGLOBIN (BEAKER) (test yaoz=116) 9.8 GM/DL 11.2-15.7 HEMATOCRIT (BEAKER) (test kbal=180) 33.5 % 34.1-44.9 MEAN CORPUSCULAR VOLUME (BEAKER) (test mtri=439) 90.8 fL 79.4-94.8 MEAN CORPUSCULAR HEMOGLOBIN (BEAKER) (test 26.6 pg 25.6-32.2 ekqb=292) MEAN CORPUSCULAR HEMOGLOBIN CONC (BEAKER) (test 29.3 GM/DL 32.2-35.5 qjsb=392) RED CELL DISTRIBUTION WIDTH (BEAKER) (test 20.1 % 11.7-14.4 sawu=455) PLATELET COUNT (BEAKER) (test ltqt=748) 382 K/CU MM 150-450 MEAN PLATELET VOLUME (BEAKER) (test adrc=533) 10.4 fL 9.4-12.3 NUCLEATED RED BLOOD CELLS (BEAKER) (test 0 /100 WBC 0-0 uccd=209) NEUTROPHILS RELATIVE PERCENT (BEAKER) (test 87 % ygmk=123) LYMPHOCYTES RELATIVE PERCENT (BEAKER) (test 6 % vmgb=791) MONOCYTES RELATIVE PERCENT (BEAKER) (test 4 % jmbg=803) EOSINOPHILS RELATIVE PERCENT (BEAKER) (test 1 % plkw=247) BASOPHILS RELATIVE PERCENT (BEAKER) (test 0 % qeei=111) NEUTROPHILS ABSOLUTE COUNT (BEAKER) (test 18.01 K/ L 1.56-6.13 kciy=277) LYMPHOCYTES ABSOLUTE COUNT (BEAKER) (test 1.30 K/ L 1.18-3.74 zkuz=011) MONOCYTES ABSOLUTE COUNT (BEAKER) (test 0.75 K/ L 0.24-0.36 qxki=122) EOSINOPHILS ABSOLUTE COUNT (BEAKER) (test 0.29 K/ L 0.04-0.36 ktky=518) BASOPHILS ABSOLUTE COUNT (BEAKER) (test 0.04 K/ L 0.01-0.08 cksr=432) IMMATURE GRANULOCYTES-RELATIVE PERCENT (BEAKER) 1 % 0-1 (test hcfj=3412) POCT-GLUCOSE [id number] 11:57:00 Test Item Value Reference Range Comments POC-GLUCOSE METER (BEAKER) 59 mg/dL 70-110 Will Repeat Test/TESTED AT (test edfr=8090) [facility] [address] [facility] [address] RAD, CHEST, 1 VIEW, NON [id number] 11:31:00Reason for exam:->interval change in upper lobe diseaseShould this be performed at the bedside?-> YesFINAL REPORT One view of the chest and two views of the abdomen. COMPARISON: 04/13/2018. IMPRESSION: Right-sided central venous catheter in the cavoatrial junction. There is no pneumothorax or pleural effusion. Persistent bilateral pulmonary opacities may represent cystic fibrosis with bronchiectasis and reticular opacities, and superinfection cannot be excluded. The cardiac silhouette appears within normal limits. No acute osseous abnormality. The bowel gas pattern demonstrates constipation without definite obstruction. No definite free intraperitoneal air is seen. Foci of calcification are seen lateral to the left hip of unclear clinical significance. Signed: Tripp Russell [employer] Verified Date/Time: 06/26/2018 11:31: 01 Reading Location: [facility] C0[facility] Ortho Consult Reading Room RAD, ABDOMEN/ KUB, 1 VIEW [id number] 11:31:00Reason for exam:->assess for stool burdenShould this be performed at the bedside?->YesFINAL REPORT One view of the chest and two views of the abdomen. COMPARISON: 2017. IMPRESSION: Right-sided central venous catheter in the cavoatrial junction. There is no pneumothorax or pleural effusion. Persistent bilateral pulmonary opacities may represent cystic fibrosis with bronchiectasis and reticular opacities, and superinfection cannot be excluded. The cardiac silhouette appears within normal limits. No acute osseous abnormality. The bowel gas pattern demonstrates constipation without definite obstruction. No definite free intraperitoneal air is seen. Foci of calcification are seen lateral to the left hip of unclear clinical significance. Signed: Tripp Russell [employer] Verified Date/Time: 06/26/2018 11:31:01 Reading Location: [facility] [id number] Ortho Consult Reading Room POCT-GLUCOSE [id number] 08:23:00 Test Item Value Reference Range Comments POC-GLUCOSE METER (BEAKER) 109 mg/dL 70-110 TESTED AT [address] (test wxdl=3835) [place] [address] LACTIC ACID, VENOUS, WHOLE [id number] 06:39:00 Test Item Value Reference Range Comments LACTATE BLOOD VENOUS (2) (BEAKER) (test 1.1 mmol/L 0.5-2.2 smna=7764) Effective 02/26/2016: Units/Reference Range ChangeNew: 0.5-2.2 mmol/L Previous: 5 -20 mg/dLBUN AND [id number] 06:08:00 Test Item Value Reference Range Comments BLOOD UREA NITROGEN 25 mg/dL 7-21 (BEAKER) (test hpjr=932) CREATININE (BEAKER) (test 0.70 mg/dL 0.57-1.25 slva=476) EGFR (BEAKER) (test 124 mL/min/1.73 sq m ESTIMATED GFR IS NOT bpey=0323) ACCURATE CREATININE CLEARANCE IN PREDICTING GLOMERULAR FILTRATION RATE. ESTIMATED GFR IS NOT APPLICABLE FOR DIALYSIS PATIENTS. POCT-GLUCOSE [id number] 05:27:00 Test Item Value Reference Range Comments POC-GLUCOSE METER (BEAKER) 120 mg/dL 70-110 TESTED AT [address] (test mssy=3787) [place] [address] POCT-GLUCOSE [id number] 21:14:00 Test Item Value Reference Range Comments POC-GLUCOSE METER (BEAKER) 216 mg/dL 70-110 TESTED AT [address] (test cvgp=0728) [place] [address] POCT-GLUCOSE [id number] 17:08:00 Test Item Value Reference Range Comments POC-GLUCOSE METER (BEAKER) 197 mg/dL 70-110 TESTED AT [address] (test sqkc=6002) [place] [address] POCT-GLUCOSE [id number] 11:51:00 Test Item Value Reference Range Comments POC-GLUCOSE METER (BEAKER) 160 mg/dL 70-110 TESTED AT [address] (test khya=3318) [place] [address] POCT-GLUCOSE [id number] 08:13:00 Test Item Value Reference Range Comments POC-GLUCOSE METER (BEAKER) 376 mg/dL 70-110 Notified JORDON STAPLETON/TESTED AT [facility] (test qbwm=2885) [address] [place] [address] BUN AND [id number] 07:14:00 Test Item Value Reference Range Comments BLOOD UREA NITROGEN 28 mg/dL 7-21 (BEAKER) (test cbsg=209) CREATININE (BEAKER) (test 0.76 mg/dL 0.57-1.25 whaj=004) EGFR (BEAKER) (test 112 mL/min/1.73 sq m ESTIMATED GFR IS NOT ugvd=7484) ACCURATE CREATININE CLEARANCE IN PREDICTING GLOMERULAR FILTRATION RATE. ESTIMATED GFR IS NOT APPLICABLE FOR DIALYSIS PATIENTS. POCT-GLUCOSE [id number] 22:17:00 Test Item Value Reference Range Comments POC-GLUCOSE METER (BEAKER) 163 mg/dL 70-110 [address] (test yipc=9637) [place] [address] POCT-GLUCOSE [id number] 16:46:00 Test Item Value Reference Range Comments POC-GLUCOSE METER (BEAKER) 301 mg/dL 70-110 TESTED AT [address] (test zzer=4728) [place] [address] POCT-GLUCOSE [id number] 12:12:00 Test Item Value Reference Range Comments POC-GLUCOSE METER (BEAKER) 400 mg/dL 70-110 Notified JORDON STAPLETON/TESTED AT [facility] (test rxhr=5453) [address] [place], [place] [address] POCT-GLUCOSE [id number] 07:42:00 Test Item Value Reference Range Comments POC-GLUCOSE METER (BEAKER) 65 mg/dL 70-110 Notified JORDON STAPLETON/TESTED AT [facility] (test gyra=4107) [address] [place], [place] [address] BUN AND [id number] 06:26:00 Test Item Value Reference Range Comments BLOOD UREA NITROGEN 27 mg/dL 7-21 (BEAKER) (test eewm=223) CREATININE (BEAKER) (test 0.70 mg/dL 0.57-1.25 oliw=707) EGFR (BEAKER) (test 124 mL/min/1.73 sq m ESTIMATED GFR IS NOT maoi=1850) ACCURATE CREATININE CLEARANCE IN PREDICTING GLOMERULAR FILTRATION RATE. ESTIMATED GFR IS NOT APPLICABLE FOR DIALYSIS PATIENTS. CF RESPIRATORY [id number] 02:48:00 Test Item Value Reference Range Comments CULTURE (BEAKER) (test PSEUDOMONAS 3+ Pseudomonas hrqc=4581) AERUGINOSA aeruginosa (MUCOID-PHENOTYPE) (Mucoid-phenotype) Amikacin (test code=1) Susceptible 0-16 , Resistant <0 or >16 Aztreonam (test Susceptible 0-8 , code=32) Resistant <0 or >8 Cefepime (test code=51) Susceptible 0-8 , Resistant <0 or >8 Ceftazidime (test Susceptible 0-8 , code=27) Resistant <0 or >8 Ciprofloxacin (test Susceptible 0-1 , code=7) Resistant <0 or >1 Gentamicin (test Susceptible 0-4 , code=18) Resistant <0 or >4 Levofloxacin (test Susceptible 0-2 , code=22) Resistant <0 or >2 Meropenem (test Susceptible 0-2 , code=34) Resistant <0 or >2 Piperacillin (test Susceptible 0-16 , code=24) Resistant <0 or >16 Piperacillin + Susceptible 0-16 , Tazobactam (test Resistant <0 or >16 code=29) Tobramycin (test Susceptible 0-4 , code=25) Resistant <0 or >4 CULTURE (BEAKER) (test PSEUDOMONAS 3+ Pseudomonas apie=0972) AERUGINOSA aeruginosa (MUCOID-PHENOTYPE) (Mucoid-phenotype)of a second type Amikacin (test code=1) Susceptible 0-16 , Resistant <0 or >16 Aztreonam (test Susceptible 0-8 , code=32) Resistant <0 or >8 Cefepime (test code=51) Susceptible 0-8 , Resistant <0 or >8 Ceftazidime (test Susceptible 0-8 , code=27) Resistant <0 or >8 Ciprofloxacin (test Susceptible 0-1 , code=7) Resistant <0 or >1 Gentamicin (test Susceptible 0-4 , code=18) Resistant <0 or >4 Levofloxacin (test Susceptible 0-2 , code=22) Resistant <0 or >2 Meropenem (test Susceptible 0-2 , code=34) Resistant <0 or >2 Piperacillin (test Susceptible 0-16 , code=24) Resistant <0 or >16 Piperacillin + Susceptible 0-16 , Tazobactam (test Resistant <0 or >16 code=29) Tobramycin (test Susceptible 0-4 , code=25) Resistant <0 or >4 4+ Normal respiratory derick presentPOCT-GLUCOSE [id number] 21:45:00 Test Item Value Reference Range Comments POC-GLUCOSE METER (BEAKER) 153 mg/dL 70-110 TESTED AT [address] (test yfnd=3101) [place] [address] POCT-GLUCOSE [id number] 17:25:00 Test Item Value Reference Range Comments POC-GLUCOSE METER (BEAKER) 237 mg/dL 70-110 TESTED AT [address] (test afxw=9777) [place] [address] POCT-GLUCOSE [id number] 11:39:00 Test Item Value Reference Range Comments POC-GLUCOSE METER (BEAKER) 126 mg/dL 70-110 TESTED AT [address] (test vhao=1090) [place] [address] BUN AND [id number] 07:39:00 Test Item Value Reference Range Comments BLOOD UREA NITROGEN 33 mg/dL 7-21 (BEAKER) (test yqpu=599) CREATININE (BEAKER) (test 0.84 mg/dL 0.57-1.25 iopb=908) EGFR (BEAKER) (test 100 mL/min/1.73 sq m ESTIMATED GFR IS NOT wojl=5166) ACCURATE CREATININE CLEARANCE IN PREDICTING GLOMERULAR FILTRATION RATE. ESTIMATED GFR IS NOT APPLICABLE FOR DIALYSIS PATIENTS. POCT-GLUCOSE [id number] 07:30:00 Test Item Value Reference Range Comments POC-GLUCOSE METER (BEAKER) 424 mg/dL 70-110 Notified JORDON STAPLETON/TESTED AT [facility] (test vpbn=9776) [address] [place] [address] POCT-GLUCOSE [id number] 21:36:00 Test Item Value Reference Range Comments POC-GLUCOSE METER (BEAKER) 241 mg/dL 70-110 TESTED AT [address] (test aggf=8874) [place] [address] POCT-GLUCOSE [id number] 17:03:00 Test Item Value Reference Range Comments POC-GLUCOSE METER (BEAKER) 405 mg/dL 70-110 Baby tested Mother ID (test nqlr=8519) used/TESTED AT [place] [id number] POCT-GLUCOSE [id number] 14:17:00 Test Item Value Reference Range Comments POC-GLUCOSE METER (BEAKER) 81 mg/dL 70-110 TESTED AT [address] (test qtir=2842) [place] [address] HEMOGLOBIN [id number] 09:17:00 Test Item Value Reference Range Comments HEMOGLOBIN A1C (BEAKER) (test xcyn=541) 13.9 % 4.3-6.1 POCT-GLUCOSE [id number] 07:56:00 Test Item Value Reference Range Comments POC-GLUCOSE METER (BEAKER) 226 mg/dL 70-110 TESTED AT [address] (test agga=9508) [place] [address] BUN AND [id number] 06:35:00 Test Item Value Reference Range Comments BLOOD UREA NITROGEN 25 mg/dL 7-21 (BEAKER) (test uiyo=632) CREATININE (BEAKER) (test 0.74 mg/dL 0.57-1.25 leht=771) EGFR (BEAKER) (test 116 mL/min/1.73 sq m ESTIMATED GFR IS NOT fabq=3542) ACCURATE CREATININE CLEARANCE IN PREDICTING GLOMERULAR FILTRATION RATE. ESTIMATED GFR IS NOT APPLICABLE FOR DIALYSIS PATIENTS. POCT-GLUCOSE [id number] 21:56:00 Test Item Value Reference Range Comments POC-GLUCOSE METER (BEAKER) 347 mg/dL 70-110 Notified JORDON STAPLETON/TESTED AT [facility] (test ksxy=1894) [address] [place], [place] [address] POCT-GLUCOSE [id number] 17:05:00 Test Item Value Reference Range Comments POC-GLUCOSE METER (BEAKER) 163 mg/dL 70-110 TESTED AT [address] (test hqbu=6348) [place] [address] POCT-GLUCOSE [id number] 12:36:00 Test Item Value Reference Range Comments POC-GLUCOSE METER (BEAKER) 124 mg/dL 70-110 TESTED AT [address] (test ejao=0416) [place] [address] POCT-GLUCOSE [id number] 07:25:00 Test Item Value Reference Range Comments POC-GLUCOSE METER (BEAKER) 161 mg/dL 70-110 TESTED AT [address] (test ghws=0971) [place] [address] BUN AND [id number] 03:23:00 Test Item Value Reference Range Comments BLOOD UREA NITROGEN 23 mg/dL 7-21 (BEAKER) (test mywg=162) CREATININE (BEAKER) (test 0.75 mg/dL 0.57-1.25 yzvz=062) EGFR (BEAKER) (test 114 mL/min/1.73 sq m ESTIMATED GFR IS NOT hbuv=8127) ACCURATE CREATININE CLEARANCE IN PREDICTING GLOMERULAR FILTRATION RATE. ESTIMATED GFR IS NOT APPLICABLE FOR DIALYSIS PATIENTS. POCT-GLUCOSE [id number] 21:35:00 Test Item Value Reference Range Comments POC-GLUCOSE METER (BEAKER) 126 mg/dL 70-110 TESTED AT [address] (test dbzb=8889) [place] [address] POCT-GLUCOSE [id number] 17:43:00 Test Item Value Reference Range Comments POC-GLUCOSE METER (BEAKER) 229 mg/dL 70-110 TESTED AT [address] (test prys=1427) [place] [address] POCT-GLUCOSE [id number] 13:02:00 Test Item Value Reference Range Comments POC-GLUCOSE METER (BEAKER) 155 mg/dL 70-110 TESTED AT [address] (test hxrx=8769) [place] [address] POCT-GLUCOSE [id number] 09:12:00 Test Item Value Reference Range Comments POC-GLUCOSE METER (BEAKER) 252 mg/dL 70-110 TESTED AT [address] (test ycuf=7300) [place] [address] POCT-GLUCOSE [id number] 08:38:00 Test Item Value Reference Range Comments POC-GLUCOSE METER (BEAKER) 58 mg/dL 70-110 Notified JORDON STAPLETON/TESTED AT [facility] (test tznb=3355) [address] [place] [address] BLOOD [id number] 06:00:00 Test Item Value Reference Range Comments CULTURE (BEAKER) (test ptwr=3622) No growth in 5 days BLOOD [id number] 06:00:00 Test Item Value Reference Range Comments CULTURE (BEAKER) (test tbhh=4781) No growth in 5 days POCT-GLUCOSE [id number] 21:09:00 Test Item Value Reference Range Comments POC-GLUCOSE METER (BEAKER) 365 mg/dL 70-110 Notified JORDON STAPLETON/TESTED AT [facility] (test dudb=5486) [address] [place] [address] POCT-GLUCOSE [id number] 18:57:00 Test Item Value Reference Range Comments POC-GLUCOSE METER (BEAKER) 395 mg/dL 70-110 TESTED AT [address] (test lrbd=9486) [place] [address] POCT-GLUCOSE [id number] 14:19:00 Test Item Value Reference Range Comments POC-GLUCOSE METER (BEAKER) 387 mg/dL 70-110 Notified JORDON STAPLETON/TESTED AT [facility] (test etlk=0354) [address] [place], [place] [address] SPUTUM CULTURE + GRAM [id number] 09:38:00 Test Item Value Reference Range Comments CULTURE (BEAKER) (test keis=1600) See comment GRAM STAIN RESULT (BEAKER) (test 1+ WBCs ftuq=5436) GRAM STAIN RESULT (BEAKER) (test 0-5 epithelial cells svvg=11182) GRAM STAIN RESULT (BEAKER) (test No organisms seen bxzv=403085) Please refer to CF respiratory culture for results. Charges for this culture and gram stain are credited.POCT-GLUCOSE [id number] 09:12:00 Test Item Value Reference Range Comments POC-GLUCOSE METER (BEAKER) 41 mg/dL 70-110 Baby tested Mother ID (test xzaz=9730) used/TESTED AT [address] [address] BASIC METABOLIC [id number] 05:17:00 Test Item Value Reference Range Comments SODIUM (BEAKER) (test 139 meq/L 136-145 qrjb=627) POTASSIUM (BEAKER) (test 3.9 meq/L 3.5-5.1 nqea=616) CHLORIDE (BEAKER) (test 99 meq/L 98-107 fplh=714) CO2 (BEAKER) (test 31 meq/L 22-29 ynwd=838) BLOOD UREA NITROGEN 21 mg/dL 7-21 (BEAKER) (test zuvn=108) CREATININE (BEAKER) (test 0.76 mg/dL 0.57-1.25 hvwj=019) GLUCOSE RANDOM (BEAKER) 76 mg/dL 70-105 (test idon=469) CALCIUM (BEAKER) (test 8.9 mg/dL 8.4-10.2 ifiy=936) EGFR (BEAKER) (test 112 mL/min/1.73 sq m ESTIMATED GFR IS NOT vvza=1132) ACCURATE CREATININE CLEARANCE IN PREDICTING GLOMERULAR FILTRATION RATE. ESTIMATED GFR IS NOT APPLICABLE FOR DIALYSIS PATIENTS. POCT-GLUCOSE [id number] 22:15:00 Test Item Value Reference Range Comments POC-GLUCOSE METER (BEAKER) 329 mg/dL 70-110 Notified JORDON STAPLETON/TESTED AT [facility] (test mump=9118) [address] [place], [place] [address] POCT-GLUCOSE [id number] 20:47:00 Test Item Value Reference Range Comments POC-GLUCOSE METER (BEAKER) 432 mg/dL 70-110 Notified JORDON STAPLETON/TESTED AT [facility] (test nabp=1714) [address] [place], [place] [address] POCT-GLUCOSE [id number] 18:31:00 Test Item Value Reference Range Comments POC-GLUCOSE METER (BEAKER) 296 mg/dL 70-110 TESTED AT [address] (test vtuk=1751) [place] [address] POCT-GLUCOSE [id number] 18:08:00 Test Item Value Reference Range Comments POC-GLUCOSE METER (BEAKER) 198 mg/dL 70-110 TESTED AT [address] (test vndc=4250) [place] [address] POCT-GLUCOSE [id number] 18:08:00 Test Item Value Reference Range Comments POC-GLUCOSE METER (BEAKER) 46 mg/dL 70-110 TESTED AT [address] (test lzzk=0906) [place] [address] POCT-GLUCOSE [id number] 12:42:00 Test Item Value Reference Range Comments POC-GLUCOSE METER (BEAKER) 71 mg/dL 70-110 TESTED AT [address] (test hwrb=4233) [place] [address] TROPONIN [id number] 10:01:00 Test Item Value Reference Range Comments TROPONIN I (BEAKER) (test ypod=861) < ng/mL 0.00-0.03 Troponin I (TnI) levels must be interpreted in the context of the presenting symptoms and the clinical findings. Elevated TnI levels indicate myocardial damage, but are not specific for ischemic heart disease. Elevated TnI levels are seen in patients with other cardiac conditions (including myocarditis and congestive heart failure), and slight TnI elevations occur in patients with other conditions, including sepsis, renal failure, acidosis, acute neurological disease, and persistent tachyarrhythmia.BASIC METABOLIC [id number] 09:53:00 Test Item Value Reference Range Comments SODIUM (BEAKER) (test 134 meq/L 136-145 klbi=089) POTASSIUM (BEAKER) (test 4.3 meq/L 3.5-5.1 uqhy=690) CHLORIDE (BEAKER) (test 97 meq/L 98-107 oygu=689) CO2 (BEAKER) (test 28 meq/L 22-29 acfq=114) BLOOD UREA NITROGEN 23 mg/dL 7-21 (BEAKER) (test ustc=544) CREATININE (BEAKER) (test 0.84 mg/dL 0.57-1.25 oyqz=777) GLUCOSE RANDOM (BEAKER) 397 mg/dL 70-105 (test zmnz=586) CALCIUM (BEAKER) (test 8.8 mg/dL 8.4-10.2 pxbc=873) EGFR (BEAKER) (test 100 mL/min/1.73 sq m ESTIMATED GFR IS NOT sxqh=8797) ACCURATE CREATININE CLEARANCE IN PREDICTING GLOMERULAR FILTRATION RATE. ESTIMATED GFR IS NOT APPLICABLE FOR DIALYSIS PATIENTS. POCT-GLUCOSE [id number] 08:49:00 Test Item Value Reference Range Comments POC-GLUCOSE METER (BEAKER) 168 mg/dL 70-110 TESTED AT [address] (test zqwo=3030) [facility] [address] POCT-GLUCOSE [id number] 20:59:00 Test Item Value Reference Range Comments POC-GLUCOSE METER (BEAKER) 218 mg/dL 70-110 TESTED AT [address] (test rbpd=1034) [facility] [address] POCT-GLUCOSE [id number] 17:20:00 Test Item Value Reference Range Comments POC-GLUCOSE METER (BEAKER) 259 mg/dL 70-110 TESTED AT [address] (test acuz=8916) [facility] [address] POCT-GLUCOSE [id number] 15:10:00 Test Item Value Reference Range Comments POC-GLUCOSE METER (BEAKER) 263 mg/dL 70-110 TESTED AT [address] (test kftv=3280) [facility] [address] POCT-GLUCOSE [id number] 08:12:00 Test Item Value Reference Range Comments POC-GLUCOSE METER (BEAKER) 126 mg/dL 70-110 TESTED AT [address] (test ovrk=7708) [facility] [address] BASIC METABOLIC [id number] 06:51:00 Test Item Value Reference Range Comments SODIUM (BEAKER) (test 139 meq/L 136-145 tivy=280) POTASSIUM (BEAKER) (test 4.3 meq/L 3.5-5.1 qjfh=527) CHLORIDE (BEAKER) (test 102 meq/L 98-107 uyoh=396) CO2 (BEAKER) (test 30 meq/L 22-29 aoyy=810) BLOOD UREA NITROGEN 17 mg/dL 7-21 (BEAKER) (test yvei=583) CREATININE (BEAKER) (test 0.74 mg/dL 0.57-1.25 jivr=942) GLUCOSE RANDOM (BEAKER) 184 mg/dL 70-105 (test qpkl=426) CALCIUM (BEAKER) (test 8.7 mg/dL 8.4-10.2 jlcr=189) EGFR (BEAKER) (test 116 mL/min/1.73 sq m ESTIMATED GFR IS NOT pfkp=9629) ACCURATE CREATININE CLEARANCE IN PREDICTING GLOMERULAR FILTRATION RATE. ESTIMATED GFR IS NOT APPLICABLE FOR DIALYSIS PATIENTS. POCT-GLUCOSE [id number] 21:02:00 Test Item Value Reference Range Comments POC-GLUCOSE METER (BEAKER) 192 mg/dL 70-110 TESTED AT [address] (test cmrg=2029) [place] [id number] POCT-GLUCOSE [id number] 16:18:00 Test Item Value Reference Range Comments POC-GLUCOSE METER (BEAKER) 199 mg/dL 70-110 TESTED AT [address] (test cnwk=6512) [place] [id number] POCT-GLUCOSE [id number] 14:34:00 Test Item Value Reference Range Comments POC-GLUCOSE METER (BEAKER) 332 mg/dL 70-110 TESTED AT [address] (test zfad=2575) [place] [id number] POCT-GLUCOSE [id number] 11:37:00 Test Item Value Reference Range Comments POC-GLUCOSE METER (BEAKER) 305 mg/dL 70-110 Notified JORDON STAPLETON/TESTED AT [facility] (test yvkx=0084) [address] [place] [address] POCT-GLUCOSE [id number] 10:22:00 Test Item Value Reference Range Comments POC-GLUCOSE METER (BEAKER) 322 mg/dL 70-110 Notified JORDON STAPLETON/TESTED AT [facility] (test nexa=4741) [address] [place] [address] BASIC METABOLIC [id number] 09:42:00 Test Item Value Reference Range Comments SODIUM (BEAKER) (test 135 meq/L 136-145 xzcf=433) POTASSIUM (BEAKER) (test 4.1 meq/L 3.5-5.1 yzve=491) CHLORIDE (BEAKER) (test 100 meq/L 98-107 qzcn=265) CO2 (BEAKER) (test 30 meq/L 22-29 yedi=390) BLOOD UREA NITROGEN 13 mg/dL 7-21 (BEAKER) (test xmms=943) CREATININE (BEAKER) (test 0.65 mg/dL 0.57-1.25 dcwi=388) GLUCOSE RANDOM (BEAKER) 149 mg/dL 70-105 (test uxqz=162) CALCIUM (BEAKER) (test 8.9 mg/dL 8.4-10.2 ftde=223) EGFR (BEAKER) (test 135 mL/min/1.73 sq m ESTIMATED GFR IS NOT qbts=8604) ACCURATE CREATININE CLEARANCE IN PREDICTING GLOMERULAR FILTRATION RATE. ESTIMATED GFR IS NOT APPLICABLE FOR DIALYSIS PATIENTS. POCT-GLUCOSE [id number] 09:24:00 Test Item Value Reference Range Comments POC-GLUCOSE METER (BEAKER) 169 mg/dL 70-110 TESTED AT [address] (test zlul=3509) [facility] [address] POCT-GLUCOSE [id number] 08:27:00 Test Item Value Reference Range Comments POC-GLUCOSE METER (BEAKER) 176 mg/dL 70-110 TESTED AT [address] (test uahd=1831) [place] [id number] POCT-GLUCOSE [id number] 06:58:00 Test Item Value Reference Range Comments POC-GLUCOSE METER (BEAKER) 214 mg/dL 70-110 TESTED AT [address] (test frfd=7641) [facility] [address] RESPIRATORY PANEL [id number] 06:36:00 Test Item Value Reference Range Comments HUMAN METAPNEUMOVIRUS (BEAKER) (test Not detected Not detected, Equivocal ocbb=2713) RHINOVIRUS (BEAKER) (test yekz=1205) Not detected Not detected, Equivocal INFLUENZA A (BEAKER) (test zixm=9809) Not detected Not detected, Equivocal INFLUENZA A (NO SUBTYPE) (test Not detected, Equivocal vgob=0802) INFLUENZA A SUBTYPE H1 (BEAKER) (test Not detected, Equivocal stex=4716) INFLUENZA A SUBTYPE H3 (BEAKER) (test Not detected, Equivocal rgen=6066) INFLUENZA A SUBTYPE H1-2009 (BEAKER) Not detected, Equivocal (test raxu=2812) INFLUENZA B (BEAKER) (test ykwf=8135) Not detected Not detected, Equivocal RESPIRATORY SYNCYTIAL VIRUS (BEAKER) Not detected Not detected, Equivocal (test fcgq=3249) PARAINFLUENZA VIRUS 1 (BEAKER) (test Not detected Not detected, Equivocal kpzq=0698) PARAINFLUENZA VIRUS 2 (BEAKER) (test Not detected Not detected, Equivocal flle=6288) PARAINFLUENZA VIRUS 3 (BEAKER) (test Not detected Not detected, Equivocal wene=5639) PARAINFLUENZA VIRUS 4 (BEAKER) (test Not detected Not detected, Equivocal xrzo=7026) ADENOVIRUS (BEAKER) (test rwzb=6350) Not detected Not detected, Equivocal CORONAVIRUS 229E (BEAKER) (test Not detected Not detected, Equivocal kstn=2291) CORONAVIRUS HKU1 (BEAKER) (test Not detected Not detected, Equivocal ucmz=2212) CORONAVIRUS NL63 (BEAKER) (test Not detected Not detected, Equivocal eaqa=0535) CORONAVIRUS OC43 (BEAKER) (test Not detected Not detected, Equivocal kuxt=8369) BORDETELLA PERTUSSIS (BEAKER) (test Not detected Not detected, Equivocal fust=5081) CHLAMYDOPHILA PNEUMONIAE (BEAKER) (test Not detected Not detected, Equivocal rgzp=4454) MYCOPLASMA PNEUMONIAE (BEAKER) (test Not detected Not detected, Equivocal joqg=3552) Other viruses and bacteria not targeted by this PCR panel cannot be excluded; therefore clinical correlation and follow up of serology, culture results, and other molecular studies is required. The results are not intended to be used as the sole means for clinical diagnosis or patient management decisions. This sample was tested at the [facility] using the [employer] FilmArray Respiratory Panel. It is FDA cleared and has been verified and approved by the [facility] for clinical use on nasal swab specimens. It is not FDA-cleared for use on bronchial wash/lavage samples. However, for this sample type, validation was performed and test characteristics were determined and approved, by [facility] for clinical use under the Clinical Laboratory Improvement Amendments (CLIA) of 1988 requirements. Therefore, FDA clearance isnot required. This laboratory is CLIA-certified and [employer] ([employer])-accredited to perform high complexity testing.Other viruses and bacteria not targeted by this PCR panel cannot be excluded; therefore clinical correlation and follow up of serology, culture results, and other molecular studies is required. The results are not intended to be used as the sole means for clinical diagnosis or patient management decisions. This sample was tested at the [facility] using the [employer] FilmArray Respiratory Panel. It is FDA cleared and has been verified andapproved by the [facility] for clinical use on nasal swab specimens. It is not FDA-cleared for use on bronchial wash/lavage samples. However, for this sample type, validation was performed and test characteristics were determined and approved, by [facility] for clinical use under the Clinical Laboratory Improvement Amendments (CLIA) of 1988 requirements. Therefore, FDA clearance is not required. This laboratory is CLIA-certified and College ofAmerican [employer]ologists (CAP)-accredited to perform high complexity testing.POCT-GLUCOSE [id number] 05:59:00 Test Item Value Reference Range Comments POC-GLUCOSE METER (BEAKER) 214 mg/dL 70-[address] [facility] [address] (test mlsd=2573) [facility] [address] [id number] 05:19:00 Test Item Value Reference Range Comments MAGNESIUM (BEAKER) (test otcp=013) 1.7 mg/dL 1.6-2.6 If last glucose was less than 500, may do bedside glucose instead of serum glucose.[id number] 05:19:00 Test Item Value Reference Range Comments GLUCOSE RANDOM (BEAKER) (test oqfc=797) 265 mg/dL 70-105 If last glucose was less than 500, may do bedside glucose instead of serum glucose.BASIC METABOLIC [id number] 05:19:00 Test Item Value Reference Range Comments SODIUM (BEAKER) (test 133 meq/L 136-145 udqc=092) POTASSIUM (BEAKER) (test 4.4 meq/L 3.5-5.1 gyae=436) CHLORIDE (BEAKER) (test 97 meq/L 98-107 dfjl=490) CO2 (BEAKER) (test 30 meq/L 22-29 eeus=897) BLOOD UREA NITROGEN 14 mg/dL 7-21 (BEAKER) (test esvo=195) CREATININE (BEAKER) (test 0.71 mg/dL 0.57-1.25 daro=502) GLUCOSE RANDOM (BEAKER) 265 mg/dL 70-105 (test dbpc=996) CALCIUM (BEAKER) (test 8.8 mg/dL 8.4-10.2 rzgz=751) EGFR (BEAKER) (test 122 mL/min/1.73 sq m ESTIMATED GFR IS NOT dmph=8177) ACCURATE CREATININE CLEARANCE IN PREDICTING GLOMERULAR FILTRATION RATE. ESTIMATED GFR IS NOT APPLICABLE FOR DIALYSIS PATIENTS. If last glucose was less than 500, may do bedside glucose instead of serum glucose.POCT-GLUCOSE [id number] 04:46:00 Test Item Value Reference Range Comments POC-GLUCOSE METER (BEAKER) 272 mg/dL 70-110 TESTED AT [address] (test lhrr=5877) [place] [address] POCT-GLUCOSE [id number] 03:44:00 Test Item Value Reference Range Comments POC-GLUCOSE METER (BEAKER) 326 mg/dL 70-110 TESTED AT [address] (test taph=5506) [place] [address] POCT-GLUCOSE [id number] 02:12:00 Test Item Value Reference Range Comments POC-GLUCOSE METER (BEAKER) 217 mg/dL 70-110 TESTED AT [address] (test kfvq=5371) [place] [address] [id number] 02:02:00 Test Item Value Reference Range Comments POTASSIUM (BEAKER) (test soyx=115) 3.9 meq/L 3.5-5.1 If last glucose was less than 500, may do bedside glucose instead of serum glucose.[id number] 02:02:00 Test Item Value Reference Range Comments GLUCOSE RANDOM (BEAKER) (test pqmz=771) 122 mg/dL 70-105 If last glucose was less than 500, may do bedside glucose instead of serum glucose.BASIC METABOLIC [id number] 02:02:00 Test Item Value Reference Range Comments SODIUM (BEAKER) (test 135 meq/L 136-145 iusw=736) POTASSIUM (BEAKER) (test 3.9 meq/L 3.5-5.1 rxqs=970) CHLORIDE (BEAKER) (test 100 meq/L 98-107 dckw=279) CO2 (BEAKER) (test 27 meq/L 22-29 rflj=858) BLOOD UREA NITROGEN 14 mg/dL 7-21 (BEAKER) (test kovx=098) CREATININE (BEAKER) (test 0.70 mg/dL 0.57-1.25 vmte=848) GLUCOSE RANDOM (BEAKER) 122 mg/dL 70-105 (test khvf=553) CALCIUM (BEAKER) (test 8.6 mg/dL 8.4-10.2 bsxf=469) EGFR (BEAKER) (test 124 mL/min/1.73 sq m ESTIMATED GFR IS NOT htua=1609) ACCURATE CREATININE CLEARANCE IN PREDICTING GLOMERULAR FILTRATION RATE. ESTIMATED GFR IS NOT APPLICABLE FOR DIALYSIS PATIENTS. If last glucose was less than 500, may do bedside glucose instead of serum glucose.POCT-GLUCOSE [id number] 01:12:00 Test Item Value Reference Range Comments POC-GLUCOSE METER (BEAKER) 106 mg/dL 70-110 TESTED AT [address] (test tstl=1485) [facility] [address] POCT-GLUCOSE [id number] 00:39:00 Test Item Value Reference Range Comments POC-GLUCOSE METER (BEAKER) 51 mg/dL 70-110 TESTED AT [address] (test omhs=7544) [facility] [address] POCT-GLUCOSE [id number] 00:30:00 Test Item Value Reference Range Comments POC-GLUCOSE METER (BEAKER) 51 mg/dL 70-110 TESTED AT [address] (test qnhx=9752) [facility] [address] [id number] 22:06:00 Test Item Value Reference Range Comments POTASSIUM (BEAKER) (test tsgu=275) 3.8 meq/L 3.5-5.1 If last glucose was less than 500, may do bedside glucose instead of serum glucose.[id number] 22:06:00 Test Item Value Reference Range Comments GLUCOSE RANDOM (BEAKER) (test tmxa=725) 311 mg/dL 70-105 If last glucose was less than 500, may do bedside glucose instead of serum glucose.KETONE, [id number] 22:03:00 Test Item Value Reference Range Comments KETONES, BLOOD (BEAKER) (test ovng=0408) 0.1 mmol/L <0.4 POCT-GLUCOSE [id number] 21:52:00 Test Item Value Reference Range Comments POC-GLUCOSE METER (BEAKER) 403 mg/dL 70-110 Notified RN or MD Patient (test ldmh=5675) refused repeat test/TESTED AT [address] [address] BASIC METABOLIC [id number] 19:28:00 Test Item Value Reference Range Comments SODIUM (BEAKER) (test 129 meq/L 136-145 zjps=925) POTASSIUM (BEAKER) (test 4.6 meq/L 3.5-5.1 bawl=216) CHLORIDE (BEAKER) (test 93 meq/L 98-107 vugi=440) CO2 (BEAKER) (test 24 meq/L 22-29 adjj=433) BLOOD UREA NITROGEN 17 mg/dL 7-21 (BEAKER) (test lbla=127) CREATININE (BEAKER) (test 1.39 mg/dL 0.57-1.25 gpmd=246) GLUCOSE RANDOM (BEAKER) 822 mg/dL 70-105 (test mwuj=312) CALCIUM (BEAKER) (test 8.6 mg/dL 8.4-10.2 hknf=055) EGFR (BEAKER) (test 56 mL/min/1.73 sq m ESTIMATED GFR IS NOT ixvo=3774) ACCURATE CREATININE CLEARANCE IN PREDICTING GLOMERULAR FILTRATION RATE. ESTIMATED GFR IS NOT APPLICABLE FOR DIALYSIS PATIENTS. POCT-GLUCOSE [id number] 17:51:00 Test Item Value Reference Range Comments POC-GLUCOSE METER (BEAKER) > mg/dL 70-110 OUTSIDE MEASURING RANGETESTED AT (test eawa=9144) [address] [address] POCT-GLUCOSE [id number] 12:17:00 Test Item Value Reference Range Comments POC-GLUCOSE METER (BEAKER) > mg/dL 70-110 OUTSIDE MEASURING RANGENotified RN (test hdrd=6658) or Patient refused repeat test/TESTED AT [place] [address] URINALYSIS W/ [id number] 10:06:00 Test Item Value Reference Range Comments COLOR (BEAKER) (test jwcj=050) Light Yellow CLARITY (BEAKER) (test hefo=332) Clear SPECIFIC GRAVITY UA (BEAKER) (test vwwv=349) 1.018 1.001-1.035 PH UA (BEAKER) (test oxex=731) 6.0 5.0-8.0 PROTEIN UA (BEAKER) (test tdxb=550) 50 mg/dL Negative GLUCOSE UA (BEAKER) (test uzpf=249) >1000 mg/dL Negative KETONES UA (BEAKER) (test scwb=555) Negative Negative BILIRUBIN UA (BEAKER) (test pbof=226) Negative Negative BLOOD UA (BEAKER) (test owpu=697) Trace Negative NITRITE UA (BEAKER) (test gkgk=985) Negative Negative LEUKOCYTE ESTERASE UA (BEAKER) (test zwqc=154) Negative Negative UROBILINOGEN UA (BEAKER) (test oaty=564) 0.2 mg/dL 0.2-1.0 RBC UA (BEAKER) (test dhgj=843) 1 /HPF WBC UA (BEAKER) (test mzmu=626) < /HPF BACTERIA (BEAKER) (test bdtd=477) Rare SQUAMOUS EPITHELIAL (BEAKER) (test pmfy=875) 2 /HPF SOURCE(BEAKER) (test kcgz=7213) POCT-GLUCOSE [id number] 07:31:00 Test Item Value Reference Range Comments POC-GLUCOSE METER (BEAKER) 365 mg/dL 70-110 TESTED AT [address] (test ygtm=9083) [place] [address] RAD, CHEST, 1 VIEW, NON [id number] 00:14:00Reason for exam:->SHORTNESS OF BREATHReason for exam:->COUGHIs the patient ?->UnknownFINAL REPORT History: Cough and shortness of breath. Comparison: 04/13/2018 Findings: A single view of the chest is submitted. The cardiomediastinal contours are unremarkable. Diffuse interstitial coarsening, patchy reticulonodular opacification and bronchiectatic changes are consistent with cystic fibrosis. A curvilinear focus of opacity in the left upper lung is stable from previous and suggests scarring. There is no new focus of pulmonary opacity, pneumothorax, pleural effusion or acute bony abnormality. A right IJ chest port is in place. Impression: Stable, chronic-appearing changes consistent with cystic fibrosis. Superimposed acute infection should be excluded clinically. Signed: Marvin Crump MDReport Verified Date/Time: 2017 00:14:15 Reading Location: [address] Reading Room TROPONIN [id number] 00:11:00 Test Item Value Reference Range Comments TROPONIN I (BEAKER) (test xyfe=715) < ng/mL 0.00-0.03 Troponin I (TnI) levels must be interpreted in the context of the presenting symptoms and the clinical findings. Elevated TnI levels indicate myocardial damage, but are not specific for ischemic heart disease. Elevated TnI levels are seen in patients with other cardiac conditions (including myocarditis and congestive heart failure), and slight TnI elevations occur in patients with other conditions, including sepsis, renal failure, acidosis, acute neurological disease, and persistent tachyarrhythmia.[id number] 00:04:00 Test Item Value Reference Range Comments MAGNESIUM (BEAKER) (test typw=422) 1.5 mg/dL 1.6-2.6 BASIC METABOLIC [id number] 00:04:00 Test Item Value Reference Range Comments SODIUM (BEAKER) (test 138 meq/L 136-145 dqnw=036) POTASSIUM (BEAKER) (test 4.1 meq/L 3.5-5.1 gfqb=325) CHLORIDE (BEAKER) (test 102 meq/L 98-107 fjih=638) CO2 (BEAKER) (test 28 meq/L 22-29 tfbm=593) BLOOD UREA NITROGEN 9 mg/dL 7-21 (BEAKER) (test htgj=094) CREATININE (BEAKER) (test 0.65 mg/dL 0.57-1.25 yoxc=968) GLUCOSE RANDOM (BEAKER) 133 mg/dL 70-105 (test pvcd=390) CALCIUM (BEAKER) (test 8.7 mg/dL 8.4-10.2 rtgf=197) EGFR (BEAKER) (test 135 mL/min/1.73 sq m ESTIMATED GFR IS NOT piji=6770) ACCURATE CREATININE CLEARANCE IN PREDICTING GLOMERULAR FILTRATION RATE. ESTIMATED GFR IS NOT APPLICABLE FOR DIALYSIS PATIENTS. CBC W/PLT COUNT & AUTO [id number] 23:42:00 Test Item Value Reference Range Comments WHITE BLOOD CELL COUNT (BEAKER) (test ynie=799) 12.0 K/ L 3.5-10.5 RED BLOOD CELL COUNT (BEAKER) (test rrkm=913) 4.14 M/ L 3.93-5.22 HEMOGLOBIN (BEAKER) (test dsfx=051) 10.9 GM/DL 11.2-15.7 HEMATOCRIT (BEAKER) (test aniv=795) 35.8 % 34.1-44.9 MEAN CORPUSCULAR VOLUME (BEAKER) (test iivu=567) 86.5 fL 79.4-94.8 MEAN CORPUSCULAR HEMOGLOBIN (BEAKER) (test 26.3 pg 25.6-32.2 ayvn=050) MEAN CORPUSCULAR HEMOGLOBIN CONC (BEAKER) (test 30.4 GM/DL 32.2-35.5 hbtn=573) RED CELL DISTRIBUTION WIDTH (BEAKER) (test 17.1 % 11.7-14.4 xstc=498) PLATELET COUNT (BEAKER) (test bnyl=109) 366 K/CU MM 150-450 MEAN PLATELET VOLUME (BEAKER) (test kcfa=540) 11.0 fL 9.4-12.3 NUCLEATED RED BLOOD CELLS (BEAKER) (test 0 /100 WBC 0-0 tamo=643) NEUTROPHILS RELATIVE PERCENT (BEAKER) (test 65 % shye=775) LYMPHOCYTES RELATIVE PERCENT (BEAKER) (test 22 % vket=216) MONOCYTES RELATIVE PERCENT (BEAKER) (test 8 % jibv=099) EOSINOPHILS RELATIVE PERCENT (BEAKER) (test 5 % xxwl=972) BASOPHILS RELATIVE PERCENT (BEAKER) (test 0 % ttlu=944) NEUTROPHILS ABSOLUTE COUNT (BEAKER) (test 7.82 K/ L 1.56-6.13 myee=468) LYMPHOCYTES ABSOLUTE COUNT (BEAKER) (test 2.61 K/ L 1.18-3.74 ufrs=569) MONOCYTES ABSOLUTE COUNT (BEAKER) (test 0.99 K/ L 0.24-0.36 mkre=473) EOSINOPHILS ABSOLUTE COUNT (BEAKER) (test 0.54 K/ L 0.04-0.36 xdel=349) BASOPHILS ABSOLUTE COUNT (BEAKER) (test 0.04 K/ L 0.01-0.08 vqwu=616) IMMATURE GRANULOCYTES-RELATIVE PERCENT (BEAKER) 0 % 0-1 (test fsoe=5016) POCT-LACTIC ACID, [id number] 23:36:00 Test Item Value Reference Range Comments POC-LACTIC ACID, VENOUS 1.0 mmol/L 0.9-1.[address] [facility] [address] (BEAKER) (test csgu=2718) [facility] [address] FUNGUS CULTURE + [id number] 11:24:00 Test Item Value Reference Range Comments CULTURE (BEAKER) (test hzli=6195) 2+ Clau glabrata FUNGUS SMEAR (BEAKER) (test No fungi seen vjix=4239) Previously reported organism is no longer reported. Please contact the Microbiology Department for additional information.[facility] RESPIRATORY [id number] 17:12:00 Test Item Value Reference Range Comments CULTURE (BEAKER) (test PSEUDOMONAS <1+ Pseudomonas yobg=5862) AERUGINOSA aeruginosa (MUCOID-PHENOTYPE) (Mucoid-phenotype) Amikacin (test code=1) Susceptible 0-16 , Resistant <0 or >16 Aztreonam (test Susceptible 0-8 , code=32) Resistant <0 or >8 Cefepime (test code=51) Susceptible 0-8 , Resistant <0 or >8 Ceftazidime (test Susceptible 0-8 , code=27) Resistant <0 or >8 Ciprofloxacin (test Susceptible 0-1 , code=7) Resistant <0 or >1 Doripenem (test Susceptible 0-2 , lxhv=888) Resistant <0 or >2 Gentamicin (test Susceptible 0-4 , code=18) Resistant <0 or >4 Imipenem (test code=19) Susceptible 0-2 , Resistant <0 or >2 Levofloxacin (test Susceptible 0-2 , code=22) Resistant <0 or >2 Meropenem (test Susceptible 0-2 , code=34) Resistant <0 or >2 Piperacillin (test Susceptible 0-16 , code=24) Resistant <0 or >16 Piperacillin + Susceptible 0-16 , Tazobactam (test Resistant <0 or >16 code=29) Tobramycin (test Susceptible 0-4 , code=25) Resistant <0 or >4 CULTURE (BEAKER) (test PSEUDOMONAS <1+ Pseudomonas egrz=5067) AERUGINOSA aeruginosaof a second type Amikacin (test code=1) Susceptible 0-16 , Resistant <0 or >16 Aztreonam (test Susceptible 0-8 , code=32) Resistant <0 or >8 Cefepime (test code=51) Susceptible 0-8 , Resistant <0 or >8 Ceftazidime (test Susceptible 0-8 , code=27) Resistant <0 or >8 Ciprofloxacin (test Susceptible 0-1 , code=7) Resistant <0 or >1 Doripenem (test Susceptible 0-2 , xwjf=895) Resistant <0 or >2 Gentamicin (test Susceptible 0-4 , code=18) Resistant <0 or >4 Imipenem (test code=19) Susceptible 0-2 , Resistant <0 or >2 Levofloxacin (test Susceptible 0-2 , code=22) Resistant <0 or >2 Meropenem (test Susceptible 0-2 , code=34) Resistant <0 or >2 Piperacillin (test Susceptible 0-16 , code=24) Resistant <0 or >16 Piperacillin + Susceptible 0-16 , Tazobactam (test Resistant <0 or >16 code=29) Tobramycin (test Susceptible 0-4 , code=25) Resistant <0 or >4 CULTURE (BEAKER) (test PSEUDOMONAS <1+ Pseudomonas okim=1980) AERUGINOSA aeruginosaof a third type Amikacin (test code=1) Susceptible 0-16 , Resistant <0 or >16 Aztreonam (test Susceptible 0-8 , code=32) Resistant <0 or >8 Cefepime (test code=51) Susceptible 0-8 , Resistant <0 or >8 Ceftazidime (test Susceptible 0-8 , code=27) Resistant <0 or >8 Ciprofloxacin (test Susceptible 0-1 , code=7) Resistant <0 or >1 Doripenem (test Susceptible 0-2 , friv=055) Resistant <0 or >2 Gentamicin (test Susceptible 0-4 , code=18) Resistant <0 or >4 Imipenem (test code=19) Susceptible 0-2 , Resistant <0 or >2 Levofloxacin (test Susceptible 0-2 , code=22) Resistant <0 or >2 Meropenem (test Susceptible 0-2 , code=34) Resistant <0 or >2 Piperacillin (test Susceptible 0-16 , code=24) Resistant <0 or >16 Piperacillin + Susceptible 0-16 , Tazobactam (test Resistant <0 or >16 code=29) Tobramycin (test Susceptible 0-4 , code=25) Resistant <0 or >4 1+ Normal respiratory derick presentSPIN/CONCENTRATION [id number] 06:32:00 Test Item Value Reference Range Comments CONCENTRATION CHARGED (BEAKER) (test wawz=2550) Done POCT-GLUCOSE [id number] 17:10:00 Test Item Value Reference Range Comments POC-GLUCOSE METER (BEAKER) 338 mg/dL 70-110 TESTED AT [address] (test ggzm=7142) [facility] [address] POCT-GLUCOSE [id number] 12:26:00 Test Item Value Reference Range Comments POC-GLUCOSE METER (BEAKER) 127 mg/dL 70-110 TESTED AT [address] (test yryg=7717) [facility] [address] POCT-GLUCOSE [id number] 08:06:00 Test Item Value Reference Range Comments POC-GLUCOSE METER (BEAKER) 174 mg/dL 70-110 TESTED AT [address] (test lyzl=9526) [facility] [address] POCT-GLUCOSE [id number] 21:28:00 Test Item Value Reference Range Comments POC-GLUCOSE METER (BEAKER) 205 mg/dL 70-110 TESTED AT [address] (test sjvp=4369) [facility] [address] POCT-GLUCOSE [id number] 17:44:00 Test Item Value Reference Range Comments POC-GLUCOSE METER (BEAKER) 229 mg/dL 70-110 TESTED AT [address] (test dvvv=4582) [facility] [address] POCT-GLUCOSE [id number] 12:08:00 Test Item Value Reference Range Comments POC-GLUCOSE METER (BEAKER) 131 mg/dL 70-[address] [facility] [address] (test ejir=2072) [facility] [address] RAD, ABDOMEN/KUB, 1 VIEW [id number] 10:55:00Reason for exam:->evaluate stool burden, abdominal distention, cf patientShould this be performedat the bedside?->NoFINAL REPORT Two abdomen images compared to February 25, 2018 Discussion: Nonspecific bowel gas pattern with moderate retained feces. No evidence of bowel obstruction. No evidence of free intraperitoneal air. Regional bones are unremarkable. Signed: Flip Choeort Verified Date/Time: 04/19/2018 10:55:54 Reading Location: [facility] Radiology Reading Room 10 :55 AMU/S, ABDOMINAL, [id number] 08:54:00Abdomen limited area? Add comment if clarification is needed.->LiverReason for exam:->abdominal distention, cf patientShould this be performed at the bedside?->NoFINAL REPORT Ultrasound of the Right Upper Quadrant of the Abdomen Clinical History: abdominal distention, cf patient Discussion: Sonographic evaluation of the right upper quadrant of the abdomen is performed. Correlation is made with CT of chest dated June 11, 2015. Liver: 15.3 cm in length at the right midclavicular line. Normal echogenicity. No lesion is identifiedby ultrasound. Main portal vein diameter 1.2 cm. Biliary tree: Common duct 5 mm. No intrahepatic biliary dilatation. Gallbladder: No shadowing calculus/calculi. No wall thickening. No pericholecystic fluid. Negative sonographic Isbell's sign. Pancreas: Partially visualized, it is fatty replaced. Ascites: None seen. Right kidney: 10.6 x 4.4 x 5.9 cm. Normal cortical echogenicity. No mass. No shadowing calculus. No hydronephrosis. IVC/ Aorta: Segments partially seen. Unremarkable. Impression: Fatty replacement of pancreas, otherwise unremarkable exam. Signed: Everardo Castellanos MDReport Verified Date/Time: 04/19/2018 08:54:16 Reading Location: [facility] B1 [id number] Ultrasound Reading Room 08: 54 AMPOCT-GLUCOSE [id number] 08:18:00 Test Item Value Reference Range Comments POC-GLUCOSE METER (BEAKER) 105 mg/dL 70-110 TESTED AT [address] (test gbnd=8627) [facility] [address] POCT-GLUCOSE [id number] 08:06:00 Test Item Value Reference Range Comments POC-GLUCOSE METER (BEAKER) 74 mg/dL 70-110 TESTED AT [address] (test cfwc=6437) [place] [address] BASIC METABOLIC [id number] 06:31:00 Test Item Value Reference Range Comments SODIUM (BEAKER) (test 138 meq/L 136-145 oyxf=071) POTASSIUM (BEAKER) (test 5.0 meq/L 3.5-5.1 vkqr=285) CHLORIDE (BEAKER) (test 97 meq/L 98-107 mghj=033) CO2 (BEAKER) (test 33 meq/L 22-29 uzxe=644) BLOOD UREA NITROGEN 25 mg/dL 7-21 (BEAKER) (test eqaq=587) CREATININE (BEAKER) (test 0.82 mg/dL 0.57-1.25 cswo=390) GLUCOSE RANDOM (BEAKER) 107 mg/dL 70-105 (test cceq=006) CALCIUM (BEAKER) (test 8.1 mg/dL 8.4-10.2 pxrk=918) EGFR (BEAKER) (test 103 mL/min/1.73 sq m ESTIMATED GFR IS NOT wvvc=5751) ACCURATE CREATININE CLEARANCE IN PREDICTING GLOMERULAR FILTRATION RATE. ESTIMATED GFR IS NOT APPLICABLE FOR DIALYSIS PATIENTS. POCT-GLUCOSE [id number] 21:28:00 Test Item Value Reference Range Comments POC-GLUCOSE METER (BEAKER) 63 mg/dL 70-110 Notified JORDON STAPLETON/TESTED AT [facility] (test gjmg=7420) [address] [place] [address] POCT-GLUCOSE [id number] 17:32:00 Test Item Value Reference Range Comments POC-GLUCOSE METER (BEAKER) 217 mg/dL 70-110 TESTED AT [address] (test nmce=3369) [place] [id number] POCT-GLUCOSE [id number] 16:55:00 Test Item Value Reference Range Comments POC-GLUCOSE METER (BEAKER) 75 mg/dL 70-110 TESTED AT [place] [address] [address] (test fcrx=4909) [place] [id number] BASIC METABOLIC [id number] 12:35:00 Test Item Value Reference Range Comments SODIUM (BEAKER) (test 141 meq/L 136-145 lhop=308) POTASSIUM (BEAKER) (test 4.6 meq/L 3.5-5.1 xlkc=336) CHLORIDE (BEAKER) (test 102 meq/L 98-107 tyby=058) CO2 (BEAKER) (test 33 meq/L 22-29 mtjk=314) BLOOD UREA NITROGEN 20 mg/dL 7-21 (BEAKER) (test jgqa=143) CREATININE (BEAKER) (test 0.74 mg/dL 0.57-1.25 tiia=823) GLUCOSE RANDOM (BEAKER) 44 mg/dL 70-105 (test clss=698) CALCIUM (BEAKER) (test 8.1 mg/dL 8.4-10.2 srib=258) EGFR (BEAKER) (test 116 mL/min/1.73 sq m ESTIMATED GFR IS NOT spde=9630) ACCURATE CREATININE CLEARANCE IN PREDICTING GLOMERULAR FILTRATION RATE. ESTIMATED GFR IS NOT APPLICABLE FOR DIALYSIS PATIENTS. POCT-GLUCOSE [id number] 12:06:00 Test Item Value Reference Range Comments POC-GLUCOSE METER (BEAKER) 43 mg/dL 70-110 Notified JORDON STAPLETON/TESTED AT [facility] (test qfys=0643) [address] [place] [address] [id number] 12:01:00 Test Item Value Reference Range Comments MAGNESIUM (BEAKER) (test qdwx=680) 1.8 mg/dL 1.6-2.6 CBC W/PLT COUNT & AUTO [id number] 11:18:00 Test Item Value Reference Range Comments WHITE BLOOD CELL COUNT (BEAKER) (test ahan=018) 11.8 K/ L 3.5-10.5 RED BLOOD CELL COUNT (BEAKER) (test chii=659) 3.37 M/ L 3.93-5.22 HEMOGLOBIN (BEAKER) (test suub=345) 8.8 GM/DL 11.2-15.7 HEMATOCRIT (BEAKER) (test kclm=760) 29.5 % 34.1-44.9 MEAN CORPUSCULAR VOLUME (BEAKER) (test olrc=328) 87.5 fL 79.4-94.8 MEAN CORPUSCULAR HEMOGLOBIN (BEAKER) (test 26.1 pg 25.6-32.2 oows=154) MEAN CORPUSCULAR HEMOGLOBIN CONC (BEAKER) (test 29.8 GM/DL 32.2-35.5 qttg=958) RED CELL DISTRIBUTION WIDTH (BEAKER) (test 16.0 % 11.7-14.4 jifg=847) PLATELET COUNT (BEAKER) (test vrkj=213) 294 K/CU MM 150-450 MEAN PLATELET VOLUME (BEAKER) (test isgi=254) 10.7 fL 9.4-12.3 NUCLEATED RED BLOOD CELLS (BEAKER) (test 0 /100 WBC 0-0 ueqp=998) NEUTROPHILS RELATIVE PERCENT (BEAKER) (test 76 % iffz=042) LYMPHOCYTES RELATIVE PERCENT (BEAKER) (test 12 % ftas=773) MONOCYTES RELATIVE PERCENT (BEAKER) (test 7 % hcik=120) EOSINOPHILS RELATIVE PERCENT (BEAKER) (test 4 % hrtb=416) BASOPHILS RELATIVE PERCENT (BEAKER) (test 0 % zpmu=268) NEUTROPHILS ABSOLUTE COUNT (BEAKER) (test 8.92 K/ L 1.56-6.13 icks=100) LYMPHOCYTES ABSOLUTE COUNT (BEAKER) (test 1.36 K/ L 1.18-3.74 hubl=846) MONOCYTES ABSOLUTE COUNT (BEAKER) (test 0.86 K/ L 0.24-0.36 jiiw=116) EOSINOPHILS ABSOLUTE COUNT (BEAKER) (test 0.49 K/ L 0.04-0.36 rafw=924) BASOPHILS ABSOLUTE COUNT (BEAKER) (test 0.03 K/ L 0.01-0.08 bmno=377) IMMATURE GRANULOCYTES-RELATIVE PERCENT (BEAKER) 1 % 0-1 (test iqkm=4988) POCT-GLUCOSE [id number] 07:31:00 Test Item Value Reference Range Comments POC-GLUCOSE METER (BEAKER) 275 mg/dL 70-[address] [facility] [address] [facility] (test uaxv=8250) [facility] [address] POCT-GLUCOSE [id number] 22:01:00 Test Item Value Reference Range Comments POC-GLUCOSE METER (BEAKER) 109 mg/dL 70-[address] [facility] [address] [facility] (test gmnu=1966) [facility] [address] POCT-GLUCOSE [id number] 21:11:00 Test Item Value Reference Range Comments POC-GLUCOSE METER (BEAKER) 61 mg/dL 70-110 Notified JORDON STAPLETON/TESTED AT [facility] (test dklj=5860) [address] [place] [address] POCT-GLUCOSE [id number] 17:41:00 Test Item Value Reference Range Comments POC-GLUCOSE METER (BEAKER) 68 mg/dL 70-110 TESTED AT [address] (test tjcg=2340) [facility] [address] POCT-GLUCOSE [id number] 16:51:00 Test Item Value Reference Range Comments POC-GLUCOSE METER (BEAKER) 74 mg/dL 70-110 TESTED AT [address] (test xvrr=4064) [facility] [address] URINALYSIS W/ [id number] 14:57:00 Test Item Value Reference Range Comments COLOR (BEAKER) (test rfau=579) Yellow CLARITY (BEAKER) (test sizy=532) Clear SPECIFIC GRAVITY UA (BEAKER) (test shgj=931) 1.009 1.001-1.035 PH UA (BEAKER) (test aqoo=790) 7.0 5.0-8.0 PROTEIN UA (BEAKER) (test acgz=494) 30 mg/dL Negative GLUCOSE UA (BEAKER) (test athj=042) Negative Negative KETONES UA (BEAKER) (test qkke=220) Negative Negative BILIRUBIN UA (BEAKER) (test culd=658) Negative Negative BLOOD UA (BEAKER) (test htdf=993) Negative Negative NITRITE UA (BEAKER) (test vrmm=686) Negative Negative LEUKOCYTE ESTERASE UA (BEAKER) (test bjqa=449) Negative Negative UROBILINOGEN UA (BEAKER) (test aetk=163) 0.2 mg/dL 0.2-1.0 RBC UA (BEAKER) (test rszw=267) < /HPF WBC UA (BEAKER) (test gzyy=529) 23 /HPF SQUAMOUS EPITHELIAL (BEAKER) (test rjnt=592) 16 /HPF SOURCE(BEAKER) (test bnig=9478) Urine, Voided [id number] 14:23:00 Test Item Value Reference Range Comments MAGNESIUM (BEAKER) (test fxcs=962) 0.9 mg/dL 1.6-2.6 BASIC METABOLIC [id number] 11:55:00 Test Item Value Reference Range Comments SODIUM (BEAKER) (test 146 meq/L 136-145 Discordant SODIUM result ltll=714) Compared to previous result, Clinical correlation required. POTASSIUM (BEAKER) (test 2.3 meq/L 3.5-5.1 shbn=829) CHLORIDE (BEAKER) (test 102 meq/L 98-107 bmwv=866) CO2 (BEAKER) (test 31 meq/L 22-29 btbc=487) BLOOD UREA NITROGEN 19 mg/dL 7-21 (BEAKER) (test dqvv=861) CREATININE (BEAKER) (test 0.86 mg/dL 0.57-1.25 exqq=880) GLUCOSE RANDOM (BEAKER) 63 mg/dL 70-105 (test mftx=328) CALCIUM (BEAKER) (test 7.8 mg/dL 8.4-10.2 qmjv=462) EGFR (BEAKER) (test 97 mL/min/1.73 sq m ESTIMATED GFR IS NOT fyoe=5315) ACCURATE CREATININE CLEARANCE IN PREDICTING GLOMERULAR FILTRATION RATE. ESTIMATED GFR IS NOT APPLICABLE FOR DIALYSIS PATIENTS. CBC W/PLT COUNT & AUTO [id number] 11:34:00 Test Item Value Reference Range Comments WHITE BLOOD CELL COUNT (BEAKER) (test rdkj=939) 11.6 K/ L 3.5-10.5 RED BLOOD CELL COUNT (BEAKER) (test cltu=959) 3.50 M/ L 3.93-5.22 HEMOGLOBIN (BEAKER) (test wklh=859) 9.1 GM/DL 11.2-15.7 HEMATOCRIT (BEAKER) (test vker=135) 30.1 % 34.1-44.9 MEAN CORPUSCULAR VOLUME (BEAKER) (test pntk=603) 86.0 fL 79.4-94.8 MEAN CORPUSCULAR HEMOGLOBIN (BEAKER) (test 26.0 pg 25.6-32.2 kolf=555) MEAN CORPUSCULAR HEMOGLOBIN CONC (BEAKER) (test 30.2 GM/DL 32.2-35.5 ffoh=269) RED CELL DISTRIBUTION WIDTH (BEAKER) (test 15.7 % 11.7-14.4 fmct=313) PLATELET COUNT (BEAKER) (test siqi=872) 316 K/CU MM 150-450 MEAN PLATELET VOLUME (BEAKER) (test ztiz=352) 10.9 fL 9.4-12.3 NUCLEATED RED BLOOD CELLS (BEAKER) (test 0 /100 WBC 0-0 ajoz=087) NEUTROPHILS RELATIVE PERCENT (BEAKER) (test 73 % xbyr=798) LYMPHOCYTES RELATIVE PERCENT (BEAKER) (test 16 % ksul=277) MONOCYTES RELATIVE PERCENT (BEAKER) (test 6 % pkir=342) EOSINOPHILS RELATIVE PERCENT (BEAKER) (test 4 % kxul=687) BASOPHILS RELATIVE PERCENT (BEAKER) (test 0 % eayy=509) NEUTROPHILS ABSOLUTE COUNT (BEAKER) (test 8.54 K/ L 1.56-6.13 xjqr=690) LYMPHOCYTES ABSOLUTE COUNT (BEAKER) (test 1.81 K/ L 1.18-3.74 afvn=615) MONOCYTES ABSOLUTE COUNT (BEAKER) (test 0.67 K/ L 0.24-0.36 cxkq=157) EOSINOPHILS ABSOLUTE COUNT (BEAKER) (test 0.46 K/ L 0.04-0.36 womu=747) BASOPHILS ABSOLUTE COUNT (BEAKER) (test 0.05 K/ L 0.01-0.08 meqd=136) IMMATURE GRANULOCYTES-RELATIVE PERCENT (BEAKER) 1 % 0-1 (test ikji=7233) POCT-GLUCOSE [id number] 08:27:00 Test Item Value Reference Range Comments POC-GLUCOSE METER (BEAKER) 128 mg/dL 70-110 TESTED AT [address] (test zrap=5613) [facility] [address] POCT-GLUCOSE [id number] 21:14:00 Test Item Value Reference Range Comments POC-GLUCOSE METER (BEAKER) 241 mg/dL 70-110 TESTED AT [address] (test qixd=5357) [facility] [address] POCT-GLUCOSE [id number] 18:51:00 Test Item Value Reference Range Comments POC-GLUCOSE METER (BEAKER) 140 mg/dL 70-110 TESTED AT [address] (test ripa=5795) [place] [address] POCT-GLUCOSE [id number] 18:06:00 Test Item Value Reference Range Comments POC-GLUCOSE METER (BEAKER) 31 mg/dL 70-110 TESTED AT [address] (test mhfb=1224) [place] [address] POCT-GLUCOSE [id number] 12:58:00 Test Item Value Reference Range Comments POC-GLUCOSE METER (BEAKER) 72 mg/dL 70-110 TESTED AT [address] (test gsvw=4332) [place] [address] POCT-GLUCOSE [id number] 08:21:00 Test Item Value Reference Range Comments POC-GLUCOSE METER (BEAKER) 162 mg/dL 70-110 TESTED AT [address] (test erxv=4995) [place] [address] [id number] 06:55:00 Test Item Value Reference Range Comments BLOOD UREA NITROGEN (BEAKER) (test dwge=360) 15 mg/dL 7- [id number] 06:55:00 Test Item Value Reference Range Comments CREATININE (BEAKER) (test 0.97 mg/dL 0.57-1.25 iurz=860) EGFR (BEAKER) (test 85 mL/min/1.73 sq m ESTIMATED GFR IS NOT aihv=0232) ACCURATE CREATININE CLEARANCE IN PREDICTING GLOMERULAR FILTRATION RATE. ESTIMATED GFR IS NOT APPLICABLE FOR DIALYSIS PATIENTS. POCT-GLUCOSE [id number] 21:28:00 Test Item Value Reference Range Comments POC-GLUCOSE METER (BEAKER) 141 mg/dL 70-110 TESTED AT [address] (test hriq=0020) [place] [address] POCT-GLUCOSE [id number] 17:29:00 Test Item Value Reference Range Comments POC-GLUCOSE METER (BEAKER) 122 mg/dL 70-110 TESTED AT [address] (test xexo=1285) [place] [address] POCT-GLUCOSE [id number] 11:22:00 Test Item Value Reference Range Comments POC-GLUCOSE METER (BEAKER) 66 mg/dL 70-110 TESTED AT [address] (test jeta=7848) [place] [address] POCT-GLUCOSE [id number] 11:22:00 Test Item Value Reference Range Comments POC-GLUCOSE METER (BEAKER) 224 mg/dL 70-[address] [facility] [address] (test lapd=9096) [facility] [address] COMPREHENSIVE METABOLIC [id number] 07:22:00 Test Item Value Reference Range Comments TOTAL PROTEIN (BEAKER) 6.5 gm/dL 6.0-8.3 (test pady=242) ALBUMIN (BEAKER) (test 2.7 g/dL 3.5-5.0 httv=3802) ALKALINE PHOSPHATASE 113 U/L 40-150 (BEAKER) (test pijo=608) BILIRUBIN TOTAL (BEAKER) 0.1 mg/dL 0.2-1.2 (test hhsa=926) SODIUM (BEAKER) (test 135 meq/L 136-145 cxfp=673) POTASSIUM (BEAKER) (test 3.8 meq/L 3.5-5.1 ljsi=306) CHLORIDE (BEAKER) (test 104 meq/L 98-107 ybpr=951) CO2 (BEAKER) (test 23 meq/L 22-29 dgkh=143) BLOOD UREA NITROGEN 17 mg/dL 7-21 (BEAKER) (test vgcd=102) CREATININE (BEAKER) (test 1.15 mg/dL 0.57-1.25 mkht=926) GLUCOSE RANDOM (BEAKER) 239 mg/dL 70-105 (test gbvd=957) CALCIUM (BEAKER) (test 8.5 mg/dL 8.4-10.2 dmkf=312) AST (SGOT) (BEAKER) (test 14 U/L 5-34 nrjl=189) ALT (SGPT) (BEAKER) (test 6 U/L 6-55 llhp=428) EGFR (BEAKER) (test 70 mL/min/1.73 sq m ESTIMATED GFR IS NOT gjkq=4120) ACCURATE CREATININE CLEARANCE IN PREDICTING GLOMERULAR FILTRATION RATE. ESTIMATED GFR IS NOT APPLICABLE FOR DIALYSIS PATIENTS. CBC W/PLT COUNT & AUTO [id number] 06:59:00 Test Item Value Reference Range Comments WHITE BLOOD CELL COUNT (BEAKER) (test qiaq=531) 10.6 K/ L 3.5-10.5 RED BLOOD CELL COUNT (BEAKER) (test badd=064) 3.57 M/ L 3.93-5.22 HEMOGLOBIN (BEAKER) (test uzow=677) 9.6 GM/DL 11.2-15.7 HEMATOCRIT (BEAKER) (test zddp=904) 31.1 % 34.1-44.9 MEAN CORPUSCULAR VOLUME (BEAKER) (test ouvv=860) 87.1 fL 79.4-94.8 MEAN CORPUSCULAR HEMOGLOBIN (BEAKER) (test 26.9 pg 25.6-32.2 wcmk=719) MEAN CORPUSCULAR HEMOGLOBIN CONC (BEAKER) (test 30.9 GM/DL 32.2-35.5 kzsi=548) RED CELL DISTRIBUTION WIDTH (BEAKER) (test 14.9 % 11.7-14.4 fanz=902) PLATELET COUNT (BEAKER) (test jsso=297) 291 K/CU MM 150-450 MEAN PLATELET VOLUME (BEAKER) (test xmsr=330) 11.0 fL 9.4-12.3 NUCLEATED RED BLOOD CELLS (BEAKER) (test 0 /100 WBC 0-0 caed=448) NEUTROPHILS RELATIVE PERCENT (BEAKER) (test 78 % zkpb=329) LYMPHOCYTES RELATIVE PERCENT (BEAKER) (test 14 % rnpt=134) MONOCYTES RELATIVE PERCENT (BEAKER) (test 6 % diuu=183) EOSINOPHILS RELATIVE PERCENT (BEAKER) (test 1 % zldy=627) BASOPHILS RELATIVE PERCENT (BEAKER) (test 0 % jcyj=695) NEUTROPHILS ABSOLUTE COUNT (BEAKER) (test 8.22 K/ L 1.56-6.13 ljfk=740) LYMPHOCYTES ABSOLUTE COUNT (BEAKER) (test 1.53 K/ L 1.18-3.74 yrjp=971) MONOCYTES ABSOLUTE COUNT (BEAKER) (test 0.65 K/ L 0.24-0.36 aarj=252) EOSINOPHILS ABSOLUTE COUNT (BEAKER) (test 0.07 K/ L 0.04-0.36 hlgu=737) BASOPHILS ABSOLUTE COUNT (BEAKER) (test 0.03 K/ L 0.01-0.08 jups=516) IMMATURE GRANULOCYTES-RELATIVE PERCENT (BEAKER) 1 % 0-1 (test sdxx=0836) POCT-GLUCOSE [id number] 23:01:00 Test Item Value Reference Range Comments POC-GLUCOSE METER (BEAKER) 411 mg/dL 70-110 Notified JORDON STAPLETON/TESTED AT [facility] (test mqwb=2688) [address] [facility] [address] POCT-GLUCOSE [id number] 18:29:00 Test Item Value Reference Range Comments POC-GLUCOSE METER (BEAKER) 216 mg/dL 70-110 TESTED AT [address] (test zese=5064) [facility] [address] POCT-GLUCOSE [id number] 12:41:00 Test Item Value Reference Range Comments POC-GLUCOSE METER (BEAKER) > mg/dL 70-110 OUTSIDE MEASURING RANGETESTED AT (test mdjs=7195) [address] [address] HEMOGLOBIN [id number] 09:11:00 Test Item Value Reference Range Comments HEMOGLOBIN A1C (BEAKER) (test gbtw=532) 13.8 % 4.3-6.1 POCT-GLUCOSE [id number] 08:12:00 Test Item Value Reference Range Comments POC-GLUCOSE METER (BEAKER) 72 mg/dL 70-110 TESTED AT [address] (test tolu=8819) [place] [address] [id number] 06:33:00 Test Item Value Reference Range Comments BLOOD UREA NITROGEN (BEAKER) (test ukdz=872) 13 mg/dL 05-14 [id number] 06:33:00 Test Item Value Reference Range Comments CREATININE (BEAKER) (test 1.39 mg/dL 0.57-1.25 rbzn=941) EGFR (BEAKER) (test 56 mL/min/1.73 sq m ESTIMATED GFR IS NOT faiq=1539) ACCURATE CREATININE CLEARANCE IN PREDICTING GLOMERULAR FILTRATION RATE. ESTIMATED GFR IS NOT APPLICABLE FOR DIALYSIS PATIENTS. CBC W/PLT COUNT & AUTO [id number] 06:24:00 Test Item Value Reference Range Comments WHITE BLOOD CELL COUNT (BEAKER) (test tirx=334) 10.9 K/ L 3.5-10.5 RED BLOOD CELL COUNT (BEAKER) (test iohc=845) 3.84 M/ L 3.93-5.22 HEMOGLOBIN (BEAKER) (test psqh=247) 10.0 GM/DL 11.2-15.7 HEMATOCRIT (BEAKER) (test hwyj=030) 32.7 % 34.1-44.9 MEAN CORPUSCULAR VOLUME (BEAKER) (test skvs=797) 85.2 fL 79.4-94.8 MEAN CORPUSCULAR HEMOGLOBIN (BEAKER) (test 26.0 pg 25.6-32.2 rnie=737) MEAN CORPUSCULAR HEMOGLOBIN CONC (BEAKER) (test 30.6 GM/DL 32.2-35.5 temw=350) RED CELL DISTRIBUTION WIDTH (BEAKER) (test 14.9 % 11.7-14.4 umzv=089) PLATELET COUNT (BEAKER) (test pggx=901) 334 K/CU MM 150-450 MEAN PLATELET VOLUME (BEAKER) (test fqcn=026) 11.3 fL 9.4-12.3 NUCLEATED RED BLOOD CELLS (BEAKER) (test 0 /100 WBC 0-0 smka=164) NEUTROPHILS RELATIVE PERCENT (BEAKER) (test 90 % jmmm=319) LYMPHOCYTES RELATIVE PERCENT (BEAKER) (test 7 % hjct=432) MONOCYTES RELATIVE PERCENT (BEAKER) (test 2 % ydjw=733) EOSINOPHILS RELATIVE PERCENT (BEAKER) (test 0 % dnfr=433) BASOPHILS RELATIVE PERCENT (BEAKER) (test 0 % yyxe=208) NEUTROPHILS ABSOLUTE COUNT (BEAKER) (test 9.77 K/ L 1.56-6.13 lmub=007) LYMPHOCYTES ABSOLUTE COUNT (BEAKER) (test 0.79 K/ L 1.18-3.74 dfls=011) MONOCYTES ABSOLUTE COUNT (BEAKER) (test 0.25 K/ L 0.24-0.36 xwsj=965) EOSINOPHILS ABSOLUTE COUNT (BEAKER) (test 0.00 K/ L 0.04-0.36 jytt=853) BASOPHILS ABSOLUTE COUNT (BEAKER) (test 0.01 K/ L 0.01-0.08 igkb=829) IMMATURE GRANULOCYTES-RELATIVE PERCENT (BEAKER) 1 % 0-1 (test hhax=1986) POCT-GLUCOSE [id number] 02:09:00 Test Item Value Reference Range Comments POC-GLUCOSE METER (BEAKER) 260 mg/dL 70-[address] [facility] [address] [facility] (test ynqr=9721) [facility] [address] RAD, CHEST, 1 VIEW, NON [id number] 20:00:00Reason for exam:->CHEST PAINIs the patient ?->UnknownShould this be performed at the bedside? ->YesFINAL REPORT EXAMINATION: AP PORTABLE CHEST RADIOGRAPH CLINICAL INDICATION: Chest pain, history of cystic fibrosis IMPRESSION: Compared with February 18, 2018. A right-sided Port-A-Cath is again noted with the tip projecting over the right atrium. Bronchiectatic changes as well asscattered reticular and nodular opacities are again noted in both lungs, grossly similar to the prior examination and suggestive of chronic lung changes related to patient's known cystic fibrosis. Increased attenuation which projects over the right upper lobe may reflect superimposed objects (including catheter tubing) external to the patient. A new parenchymal lung process including a pneumonia is difficult to completely exclude. Heart size is normal. Cardiac and mediastinal contours are grossly stable. No definite evidence of an acute osseous abnormality or pneumothorax. Dedicated upright PA and lateral chest radiographs and/or chest CT could be performed for further evaluation as clinically warranted. Signed: Magaly Joyce MDReport Verified Date/Time: 2017 20:00:46 Reading Location: [address] Reading Room KETONE, [id number] 18:36:00 Test Item Value Reference Range Comments KETONES, BLOOD (BEAKER) (test mily=5656) 0.1 mmol/L <0.4 BASIC METABOLIC [id number] 18:18:00 Test Item Value Reference Range Comments SODIUM (BEAKER) (test 132 meq/L 136-145 ifvr=239) POTASSIUM (BEAKER) (test 4.5 meq/L 3.5-5.1 rpev=766) CHLORIDE (BEAKER) (test 95 meq/L 98-107 xbll=444) CO2 (BEAKER) (test 22 meq/L 22-29 mcam=906) BLOOD UREA NITROGEN 18 mg/dL 7-21 (BEAKER) (test xaia=894) CREATININE (BEAKER) (test 2.19 mg/dL 0.57-1.25 xvhq=114) GLUCOSE RANDOM (BEAKER) 431 mg/dL 70-105 (test kqjh=126) CALCIUM (BEAKER) (test 9.4 mg/dL 8.4-10.2 ewwc=515) EGFR (BEAKER) (test 33 mL/min/1.73 sq m ESTIMATED GFR IS NOT azaj=5672) ACCURATE CREATININE CLEARANCE IN PREDICTING GLOMERULAR FILTRATION RATE. ESTIMATED GFR IS NOT APPLICABLE FOR DIALYSIS PATIENTS. CBC W/PLT COUNT & AUTO [id number] 18:02:00 Test Item Value Reference Range Comments WHITE BLOOD CELL COUNT (BEAKER) (test wrxs=619) 13.1 K/ L 3.5-10.5 RED BLOOD CELL COUNT (BEAKER) (test jffw=581) 4.58 M/ L 3.93-5.22 HEMOGLOBIN (BEAKER) (test heiz=469) 11.9 GM/DL 11.2-15.7 HEMATOCRIT (BEAKER) (test psbi=472) 38.9 % 34.1-44.9 MEAN CORPUSCULAR VOLUME (BEAKER) (test dhni=792) 84.9 fL 79.4-94.8 MEAN CORPUSCULAR HEMOGLOBIN (BEAKER) (test 26.0 pg 25.6-32.2 wrcn=360) MEAN CORPUSCULAR HEMOGLOBIN CONC (BEAKER) (test 30.6 GM/DL 32.2-35.5 kbsf=469) RED CELL DISTRIBUTION WIDTH (BEAKER) (test 14.7 % 11.7-14.4 mfnm=282) PLATELET COUNT (BEAKER) (test xpxb=110) 385 K/CU MM 150-450 MEAN PLATELET VOLUME (BEAKER) (test wgaa=865) 11.0 fL 9.4-12.3 NUCLEATED RED BLOOD CELLS (BEAKER) (test 0 /100 WBC 0-0 erag=665) NEUTROPHILS RELATIVE PERCENT (BEAKER) (test 95 % scni=659) LYMPHOCYTES RELATIVE PERCENT (BEAKER) (test 4 % trsz=837) MONOCYTES RELATIVE PERCENT (BEAKER) (test 1 % skdd=003) EOSINOPHILS RELATIVE PERCENT (BEAKER) (test 0 % bayq=879) BASOPHILS RELATIVE PERCENT (BEAKER) (test 0 % cvdw=677) NEUTROPHILS ABSOLUTE COUNT (BEAKER) (test 12.46 K/ L 1.56-6.13 utht=900) LYMPHOCYTES ABSOLUTE COUNT (BEAKER) (test 0.53 K/ L 1.18-3.74 czjr=136) MONOCYTES ABSOLUTE COUNT (BEAKER) (test 0.08 K/ L 0.24-0.36 xbec=767) EOSINOPHILS ABSOLUTE COUNT (BEAKER) (test 0.00 K/ L 0.04-0.36 fdis=968) BASOPHILS ABSOLUTE COUNT (BEAKER) (test 0.01 K/ L 0.01-0.08 fjrz=455) IMMATURE GRANULOCYTES-RELATIVE PERCENT (BEAKER) 0 % 0-1 (test tttc=2378) POCT-GLUCOSE [id number] 16:57:00 Test Item Value Reference Range Comments POC-GLUCOSE METER (BEAKER) 117 mg/dL 70-110 TESTED AT [address] (test vane=0020) [place] [address] POCT-GLUCOSE [id number] 16:56:00 Test Item Value Reference Range Comments POC-GLUCOSE METER (BEAKER) 62 mg/dL 70-110 Notified RN or MD Patient (test udke=2111) refused repeat test/TESTED AT [place] [id number] POCT-GLUCOSE [id number] 12:23:00 Test Item Value Reference Range Comments POC-GLUCOSE METER (BEAKER) 81 mg/dL 70-110 TESTED AT [address] (test rblj=2079) [place] [address] POCT-GLUCOSE [id number] 09:36:00 Test Item Value Reference Range Comments POC-GLUCOSE METER (BEAKER) 239 mg/dL 70-110 TESTED AT [address] (test msbk=4433) [place] [address] BUN AND [id number] 07:03:00 Test Item Value Reference Range Comments BLOOD UREA NITROGEN 19 mg/dL 7-21 (BEAKER) (test arue=300) CREATININE (BEAKER) (test 0.71 mg/dL 0.57-1.25 zupu=890) EGFR (BEAKER) (test 122 mL/min/1.73 sq m ESTIMATED GFR IS NOT zhdj=3928) ACCURATE CREATININE CLEARANCE IN PREDICTING GLOMERULAR FILTRATION RATE. ESTIMATED GFR IS NOT APPLICABLE FOR DIALYSIS PATIENTS. POCT-GLUCOSE [id number] 17:46:00 Test Item Value Reference Range Comments POC-GLUCOSE METER (BEAKER) 147 mg/dL 70-110 TESTED AT [address] (test cdmu=6180) [place] [id number] POCT-GLUCOSE [id number] 13:26:00 Test Item Value Reference Range Comments POC-GLUCOSE METER (BEAKER) 105 mg/dL 70-110 TESTED AT [address] (test qljn=6216) [place] [id number] POCT-GLUCOSE [id number] 07:56:00 Test Item Value Reference Range Comments POC-GLUCOSE METER (BEAKER) 207 mg/dL 70-[address] [facility] [address] [facility] (test vlns=8462) [facility] [address] CBC W/PLT COUNT & AUTO [id number] 06:59:00 Test Item Value Reference Range Comments WHITE BLOOD CELL COUNT (BEAKER) (test ovkd=659) 8.4 K/ L 3.5-10.5 RED BLOOD CELL COUNT (BEAKER) (test lhhb=733) 3.67 M/ L 3.93-5.22 HEMOGLOBIN (BEAKER) (test cyuj=306) 9.7 GM/DL 11.2-15.7 HEMATOCRIT (BEAKER) (test jfvv=546) 32.9 % 34.1-44.9 MEAN CORPUSCULAR VOLUME (BEAKER) (test jabf=906) 89.6 fL 79.4-94.8 MEAN CORPUSCULAR HEMOGLOBIN (BEAKER) (test 26.4 pg 25.6-32.2 enkr=230) MEAN CORPUSCULAR HEMOGLOBIN CONC (BEAKER) (test 29.5 GM/DL 32.2-35.5 veqa=725) RED CELL DISTRIBUTION WIDTH (BEAKER) (test 19.4 % 11.7-14.4 busp=399) PLATELET COUNT (BEAKER) (test jfks=773) 410 K/CU MM 150-450 MEAN PLATELET VOLUME (BEAKER) (test feqe=424) 9.7 fL 9.4-12.3 NUCLEATED RED BLOOD CELLS (BEAKER) (test 0 /100 WBC 0-0 lqnc=493) NEUTROPHILS RELATIVE PERCENT (BEAKER) (test 53 % tiwg=846) LYMPHOCYTES RELATIVE PERCENT (BEAKER) (test 27 % wjwa=096) MONOCYTES RELATIVE PERCENT (BEAKER) (test 10 % aoyr=139) EOSINOPHILS RELATIVE PERCENT (BEAKER) (test 10 % buht=238) BASOPHILS RELATIVE PERCENT (BEAKER) (test 1 % bdmh=612) NEUTROPHILS ABSOLUTE COUNT (BEAKER) (test 4.48 K/ L 1.56-6.13 yrre=093) LYMPHOCYTES ABSOLUTE COUNT (BEAKER) (test 2.27 K/ L 1.18-3.74 bpro=280) MONOCYTES ABSOLUTE COUNT (BEAKER) (test 0.80 K/ L 0.24-0.36 ayhi=740) EOSINOPHILS ABSOLUTE COUNT (BEAKER) (test 0.81 K/ L 0.04-0.36 iijd=665) BASOPHILS ABSOLUTE COUNT (BEAKER) (test 0.04 K/ L 0.01-0.08 morv=407) IMMATURE GRANULOCYTES-RELATIVE PERCENT (BEAKER) 1 % 0-1 (test vphc=4932) BUN AND [id number] 06:42:00 Test Item Value Reference Range Comments BLOOD UREA NITROGEN 16 mg/dL 7-21 (BEAKER) (test kkws=204) CREATININE (BEAKER) (test 0.67 mg/dL 0.57-1.25 gsxk=545) EGFR (BEAKER) (test 130 mL/min/1.73 sq m ESTIMATED GFR IS NOT lleh=7138) ACCURATE CREATININE CLEARANCE IN PREDICTING GLOMERULAR FILTRATION RATE. ESTIMATED GFR IS NOT APPLICABLE FOR DIALYSIS PATIENTS. POCT-GLUCOSE [id number] 21:05:00 Test Item Value Reference Range Comments POC-GLUCOSE METER (BEAKER) 195 mg/dL 70-110 TESTED AT [address] (test zqhq=2803) [place] [address] POCT-GLUCOSE [id number] 18:55:00 Test Item Value Reference Range Comments POC-GLUCOSE METER (BEAKER) 344 mg/dL 70-110 TESTED AT [address] (test gyyw=1728) [place] [address] POCT-GLUCOSE [id number] 12:20:00 Test Item Value Reference Range Comments POC-GLUCOSE METER (BEAKER) 166 mg/dL 70-110 TESTED AT [address] (test uoix=1054) [place] [address] POCT-GLUCOSE [id number] 11:34:00 Test Item Value Reference Range Comments POC-GLUCOSE METER (BEAKER) 68 mg/dL 70-110 Notified JORDON STAPLETON/TESTED AT [facility] (test dxbj=4452) [address] [place] [address] BUN AND [id number] 10:24:00 Test Item Value Reference Range Comments BLOOD UREA NITROGEN 15 mg/dL 7-21 (BEAKER) (test sxzw=174) CREATININE (BEAKER) (test 0.64 mg/dL 0.57-1.25 iapb=361) EGFR (BEAKER) (test 137 mL/min/1.73 sq m ESTIMATED GFR IS NOT idje=7194) ACCURATE CREATININE CLEARANCE IN PREDICTING GLOMERULAR FILTRATION RATE. ESTIMATED GFR IS NOT APPLICABLE FOR DIALYSIS PATIENTS. POCT-GLUCOSE [id number] 07:58:00 Test Item Value Reference Range Comments POC-GLUCOSE METER (BEAKER) 218 mg/dL 70-110 TESTED AT [address] (test bdpl=1215) [place] [id number] POCT-GLUCOSE [id number] 22:10:00 Test Item Value Reference Range Comments POC-GLUCOSE METER (BEAKER) 140 mg/dL 70-110 TESTED AT [address] (test vfqu=5935) [place] [address] POCT-GLUCOSE [id number] 20:51:00 Test Item Value Reference Range Comments POC-GLUCOSE METER (BEAKER) 182 mg/dL 70-110 TESTED AT [address] (test ufkk=0177) [place] [address] POCT-GLUCOSE [id number] 12:49:00 Test Item Value Reference Range Comments POC-GLUCOSE METER (BEAKER) 81 mg/dL 70-110 TESTED AT [address] (test srlm=5626) [facility] [address] POCT-GLUCOSE [id number] 08:20:00 Test Item Value Reference Range Comments POC-GLUCOSE METER (BEAKER) 362 mg/dL 70-110 Notified RN or MD Patient (test arqr=5527) refused repeat test/TESTED AT [place] [address] BUN AND [id number] 06:16:00 Test Item Value Reference Range Comments BLOOD UREA NITROGEN 16 mg/dL 7-21 (BEAKER) (test tzck=764) CREATININE (BEAKER) (test 0.76 mg/dL 0.57-1.25 ehlb=600) EGFR (BEAKER) (test 112 mL/min/1.73 sq m ESTIMATED GFR IS NOT qgsc=6465) ACCURATE CREATININE CLEARANCE IN PREDICTING GLOMERULAR FILTRATION RATE. ESTIMATED GFR IS NOT APPLICABLE FOR DIALYSIS PATIENTS. CBC W/PLT COUNT & AUTO [id number] 06:13:00 Test Item Value Reference Range Comments WHITE BLOOD CELL COUNT (BEAKER) (test pqyk=439) 11.6 K/ L 3.5-10.5 RED BLOOD CELL COUNT (BEAKER) (test tgkz=991) 3.59 M/ L 3.93-5.22 HEMOGLOBIN (BEAKER) (test vjkh=344) 9.5 GM/DL 11.2-15.7 HEMATOCRIT (BEAKER) (test favr=193) 32.5 % 34.1-44.9 MEAN CORPUSCULAR VOLUME (BEAKER) (test nxwd=825) 90.5 fL 79.4-94.8 MEAN CORPUSCULAR HEMOGLOBIN (BEAKER) (test 26.5 pg 25.6-32.2 tlnc=028) MEAN CORPUSCULAR HEMOGLOBIN CONC (BEAKER) (test 29.2 GM/DL 32.2-35.5 mxpy=616) RED CELL DISTRIBUTION WIDTH (BEAKER) (test 19.6 % 11.7-14.4 ybfo=725) PLATELET COUNT (BEAKER) (test vags=682) 500 K/CU MM 150-450 MEAN PLATELET VOLUME (BEAKER) (test wotk=237) 10.0 fL 9.4-12.3 NUCLEATED RED BLOOD CELLS (BEAKER) (test 0 /100 WBC 0-0 wlal=880) NEUTROPHILS RELATIVE PERCENT (BEAKER) (test 66 % vaqz=707) LYMPHOCYTES RELATIVE PERCENT (BEAKER) (test 21 % ggef=826) MONOCYTES RELATIVE PERCENT (BEAKER) (test 8 % cifa=852) EOSINOPHILS RELATIVE PERCENT (BEAKER) (test 6 % arkj=267) BASOPHILS RELATIVE PERCENT (BEAKER) (test 0 % arnv=453) NEUTROPHILS ABSOLUTE COUNT (BEAKER) (test 7.67 K/ L 1.56-6.13 plnv=687) LYMPHOCYTES ABSOLUTE COUNT (BEAKER) (test 2.39 K/ L 1.18-3.74 dmdr=811) MONOCYTES ABSOLUTE COUNT (BEAKER) (test 0.87 K/ L 0.24-0.36 udkc=657) EOSINOPHILS ABSOLUTE COUNT (BEAKER) (test 0.65 K/ L 0.04-0.36 fdjf=580) BASOPHILS ABSOLUTE COUNT (BEAKER) (test 0.02 K/ L 0.01-0.08 yqjb=196) IMMATURE GRANULOCYTES-RELATIVE PERCENT (BEAKER) 0 % 0-1 (test ytcm=8030) POCT-GLUCOSE [id number] 21:45:00 Test Item Value Reference Range Comments POC-GLUCOSE METER (BEAKER) 226 mg/dL 70-110 TESTED AT [address] (test uybe=3893) [facility] [address] POCT-GLUCOSE [id number] 17:21:00 Test Item Value Reference Range Comments POC-GLUCOSE METER (BEAKER) 245 mg/dL 70-110 TESTED AT [address] (test exqr=6988) [facility] [address] POCT-GLUCOSE [id number] 12:59:00 Test Item Value Reference Range Comments POC-GLUCOSE METER (BEAKER) 76 mg/dL 70-110 TESTED AT [address] (test ogrq=6487) [facility] [address] POCT-GLUCOSE [id number] 08:21:00 Test Item Value Reference Range Comments POC-GLUCOSE METER (BEAKER) 88 mg/dL 70-110 TESTED AT [address] (test ycnq=7107) [facility] [address] BUN AND [id number] 05:56:00 Test Item Value Reference Range Comments BLOOD UREA NITROGEN 9 mg/dL 7-21 (BEAKER) (test pmlm=674) CREATININE (BEAKER) (test 0.74 mg/dL 0.57-1.25 ohtc=937) EGFR (BEAKER) (test 116 mL/min/1.73 sq m ESTIMATED GFR IS NOT lyfe=3030) ACCURATE CREATININE CLEARANCE IN PREDICTING GLOMERULAR FILTRATION RATE. ESTIMATED GFR IS NOT APPLICABLE FOR DIALYSIS PATIENTS. CBC W/PLT COUNT & AUTO [id number] 05:30:00 Test Item Value Reference Range Comments WHITE BLOOD CELL COUNT (BEAKER) (test gynz=906) 14.2 K/ L 3.5-10.5 RED BLOOD CELL COUNT (BEAKER) (test egmk=563) 3.82 M/ L 3.93-5.22 HEMOGLOBIN (BEAKER) (test lzqo=106) 10.2 GM/DL 11.2-15.7 HEMATOCRIT (BEAKER) (test ihla=342) 34.0 % 34.1-44.9 MEAN CORPUSCULAR VOLUME (BEAKER) (test umhs=806) 89.0 fL 79.4-94.8 MEAN CORPUSCULAR HEMOGLOBIN (BEAKER) (test 26.7 pg 25.6-32.2 tqgp=110) MEAN CORPUSCULAR HEMOGLOBIN CONC (BEAKER) (test 30.0 GM/DL 32.2-35.5 bckc=914) RED CELL DISTRIBUTION WIDTH (BEAKER) (test 19.7 % 11.7-14.4 xsrx=491) PLATELET COUNT (BEAKER) (test unva=086) 546 K/CU MM 150-450 MEAN PLATELET VOLUME (BEAKER) (test vira=367) 9.9 fL 9.4-12.3 NUCLEATED RED BLOOD CELLS (BEAKER) (test 0 /100 WBC 0-0 ydux=345) NEUTROPHILS RELATIVE PERCENT (BEAKER) (test 68 % ertw=083) LYMPHOCYTES RELATIVE PERCENT (BEAKER) (test 19 % ymsq=413) MONOCYTES RELATIVE PERCENT (BEAKER) (test 7 % ryai=411) EOSINOPHILS RELATIVE PERCENT (BEAKER) (test 5 % otpx=662) BASOPHILS RELATIVE PERCENT (BEAKER) (test 0 % nhgy=073) NEUTROPHILS ABSOLUTE COUNT (BEAKER) (test 9.65 K/ L 1.56-6.13 gknj=613) LYMPHOCYTES ABSOLUTE COUNT (BEAKER) (test 2.69 K/ L 1.18-3.74 wppt=434) MONOCYTES ABSOLUTE COUNT (BEAKER) (test 1.01 K/ L 0.24-0.36 ryfg=443) EOSINOPHILS ABSOLUTE COUNT (BEAKER) (test 0.72 K/ L 0.04-0.36 ghyw=943) BASOPHILS ABSOLUTE COUNT (BEAKER) (test 0.06 K/ L 0.01-0.08 thpa=911) IMMATURE GRANULOCYTES-RELATIVE PERCENT (BEAKER) 1 % 0-1 (test zfje=7492) POCT-GLUCOSE [id number] 21:20:00 Test Item Value Reference Range Comments POC-GLUCOSE METER (BEAKER) 211 mg/dL 70-110 TESTED AT [address] (test gbst=0928) [facility] [address] POCT-GLUCOSE [id number] 17:25:00 Test Item Value Reference Range Comments POC-GLUCOSE METER (BEAKER) 152 mg/dL 70-110 TESTED AT [address] (test vlbo=5425) [facility] [address] POCT-GLUCOSE [id number] 13:32:00 Test Item Value Reference Range Comments POC-GLUCOSE METER (BEAKER) 81 mg/dL 70-[address] [facility] [address] (test arlf=0552) [place] [address] BUN AND [id number] 10:16:00 Test Item Value Reference Range Comments BLOOD UREA NITROGEN 17 mg/dL 7-21 (BEAKER) (test ucvh=621) CREATININE (BEAKER) (test 0.72 mg/dL 0.57-1.25 sbyv=135) EGFR (BEAKER) (test 120 mL/min/1.73 sq m ESTIMATED GFR IS NOT aoum=0852) ACCURATE CREATININE CLEARANCE IN PREDICTING GLOMERULAR FILTRATION RATE. ESTIMATED GFR IS NOT APPLICABLE FOR DIALYSIS PATIENTS. CBC W/PLT COUNT & AUTO [id number] 09:23:00 Test Item Value Reference Range Comments WHITE BLOOD CELL COUNT (BEAKER) (test dckn=151) 11.7 K/ L 3.5-10.5 RED BLOOD CELL COUNT (BEAKER) (test vymr=995) 3.70 M/ L 3.93-5.22 HEMOGLOBIN (BEAKER) (test dvzi=399) 9.7 GM/DL 11.2-15.7 HEMATOCRIT (BEAKER) (test pxaj=271) 32.7 % 34.1-44.9 MEAN CORPUSCULAR VOLUME (BEAKER) (test xffk=229) 88.4 fL 79.4-94.8 MEAN CORPUSCULAR HEMOGLOBIN (BEAKER) (test 26.2 pg 25.6-32.2 mbek=898) MEAN CORPUSCULAR HEMOGLOBIN CONC (BEAKER) (test 29.7 GM/DL 32.2-35.5 yzfd=216) RED CELL DISTRIBUTION WIDTH (BEAKER) (test 19.5 % 11.7-14.4 qalx=265) PLATELET COUNT (BEAKER) (test wrqt=680) 519 K/CU MM 150-450 MEAN PLATELET VOLUME (BEAKER) (test kcba=859) 9.9 fL 9.4-12.3 NUCLEATED RED BLOOD CELLS (BEAKER) (test 0 /100 WBC 0-0 nqgq=199) NEUTROPHILS RELATIVE PERCENT (BEAKER) (test 60 % fejn=647) LYMPHOCYTES RELATIVE PERCENT (BEAKER) (test 26 % rlqq=991) MONOCYTES RELATIVE PERCENT (BEAKER) (test 7 % ukqd=916) EOSINOPHILS RELATIVE PERCENT (BEAKER) (test 6 % ttkt=866) BASOPHILS RELATIVE PERCENT (BEAKER) (test 0 % fmpu=218) NEUTROPHILS ABSOLUTE COUNT (BEAKER) (test 6.97 K/ L 1.56-6.13 pkyb=477) LYMPHOCYTES ABSOLUTE COUNT (BEAKER) (test 3.03 K/ L 1.18-3.74 wlgp=294) MONOCYTES ABSOLUTE COUNT (BEAKER) (test 0.86 K/ L 0.24-0.36 tnsn=472) EOSINOPHILS ABSOLUTE COUNT (BEAKER) (test 0.71 K/ L 0.04-0.36 hwog=034) BASOPHILS ABSOLUTE COUNT (BEAKER) (test 0.04 K/ L 0.01-0.08 dijd=907) IMMATURE GRANULOCYTES-RELATIVE PERCENT (BEAKER) 1 % 0-1 (test qpwm=5790) POCT-GLUCOSE [id number] 08:05:00 Test Item Value Reference Range Comments POC-GLUCOSE METER (BEAKER) 245 mg/dL 70-110 TESTED AT [address] (test ybhh=8691) [place] [address] POCT-GLUCOSE [id number] 21:42:00 Test Item Value Reference Range Comments POC-GLUCOSE METER (BEAKER) 163 mg/dL 70-110 TESTED AT [address] (test lhgg=9214) [place] [address] POCT-GLUCOSE [id number] 18:57:00 Test Item Value Reference Range Comments POC-GLUCOSE METER (BEAKER) 65 mg/dL 70-110 Will Repeat Test/TESTED AT (test yqtv=0614) [address] [address] POCT-GLUCOSE [id number] 14:12:00 Test Item Value Reference Range Comments POC-GLUCOSE METER (BEAKER) 72 mg/dL 70-110 TESTED AT [address] (test kfhx=3989) [place] [address] POCT-GLUCOSE [id number] 10:46:00 Test Item Value Reference Range Comments POC-GLUCOSE METER (BEAKER) 361 mg/dL 70-110 Will Repeat Test/TESTED AT (test baim=2293) [address] [address] BASIC METABOLIC [id number] 10:11:00 Test Item Value Reference Range Comments SODIUM (BEAKER) (test 138 meq/L 136-145 gwmj=936) POTASSIUM (BEAKER) (test 5.1 meq/L 3.5-5.1 rken=737) CHLORIDE (BEAKER) (test 107 meq/L 98-107 jqkn=177) CO2 (BEAKER) (test 24 meq/L 22-29 vltv=601) BLOOD UREA NITROGEN 9 mg/dL 7-21 (BEAKER) (test qqnr=117) CREATININE (BEAKER) (test 0.63 mg/dL 0.57-1.25 fvvt=638) GLUCOSE RANDOM (BEAKER) 107 mg/dL 70-105 (test aoye=470) CALCIUM (BEAKER) (test 7.4 mg/dL 8.4-10.2 wowi=989) EGFR (BEAKER) (test 140 mL/min/1.73 sq m ESTIMATED GFR IS NOT kngw=3568) ACCURATE CREATININE CLEARANCE IN PREDICTING GLOMERULAR FILTRATION RATE. ESTIMATED GFR IS NOT APPLICABLE FOR DIALYSIS PATIENTS. CBC W/PLT COUNT & AUTO [id number] 09:22:00 Test Item Value Reference Range Comments WHITE BLOOD CELL COUNT (BEAKER) (test uxku=599) 14.8 K/ L 3.5-10.5 RED BLOOD CELL COUNT (BEAKER) (test sctp=916) 3.65 M/ L 3.93-5.22 HEMOGLOBIN (BEAKER) (test awzg=406) 9.9 GM/DL 11.2-15.7 HEMATOCRIT (BEAKER) (test hpyq=806) 32.5 % 34.1-44.9 MEAN CORPUSCULAR VOLUME (BEAKER) (test aoey=057) 89.0 fL 79.4-94.8 MEAN CORPUSCULAR HEMOGLOBIN (BEAKER) (test 27.1 pg 25.6-32.2 plox=870) MEAN CORPUSCULAR HEMOGLOBIN CONC (BEAKER) (test 30.5 GM/DL 32.2-35.5 pwpb=740) RED CELL DISTRIBUTION WIDTH (BEAKER) (test 19.4 % 11.7-14.4 fbmt=262) PLATELET COUNT (BEAKER) (test nsdk=657) 490 K/CU MM 150-450 MEAN PLATELET VOLUME (BEAKER) (test bokk=501) 9.6 fL 9.4-12.3 NUCLEATED RED BLOOD CELLS (BEAKER) (test 0 /100 WBC 0-0 xlhf=147) NEUTROPHILS RELATIVE PERCENT (BEAKER) (test 64 % ssno=003) LYMPHOCYTES RELATIVE PERCENT (BEAKER) (test 24 % xyfe=850) MONOCYTES RELATIVE PERCENT (BEAKER) (test 7 % dbjj=015) EOSINOPHILS RELATIVE PERCENT (BEAKER) (test 5 % dqeq=599) BASOPHILS RELATIVE PERCENT (BEAKER) (test 0 % kkmz=051) NEUTROPHILS ABSOLUTE COUNT (BEAKER) (test 9.41 K/ L 1.56-6.13 lncl=440) LYMPHOCYTES ABSOLUTE COUNT (BEAKER) (test 3.48 K/ L 1.18-3.74 owpr=728) MONOCYTES ABSOLUTE COUNT (BEAKER) (test 1.04 K/ L 0.24-0.36 kvjo=470) EOSINOPHILS ABSOLUTE COUNT (BEAKER) (test 0.70 K/ L 0.04-0.36 eztp=125) BASOPHILS ABSOLUTE COUNT (BEAKER) (test 0.03 K/ L 0.01-0.08 hjhb=642) IMMATURE GRANULOCYTES-RELATIVE PERCENT (BEAKER) 1 % 0-1 (test tgoy=7766) POCT-GLUCOSE [id number] 22:41:00 Test Item Value Reference Range Comments POC-GLUCOSE METER (BEAKER) 118 mg/dL 70-110 TESTED AT [address] (test iqaq=4091) [place] [address] [id number] 17:38:00 Test Item Value Reference Range Comments POTASSIUM (BEAKER) (test lajc=996) 5.4 meq/L 3.5-5.1 POCT-GLUCOSE [id number] 17:31:00 Test Item Value Reference Range Comments POC-GLUCOSE METER (BEAKER) 111 mg/dL 70-110 TESTED AT [address] (test wxaj=5824) [place] [address] POCT-GLUCOSE [id number] 12:16:00 Test Item Value Reference Range Comments POC-GLUCOSE METER (BEAKER) 186 mg/dL 70-110 TESTED AT [address] (test urfu=2280) [place] [address] POCT-GLUCOSE [id number] 09:29:00 Test Item Value Reference Range Comments POC-GLUCOSE METER (BEAKER) 159 mg/dL 70-110 TESTED AT [address] (test nnxw=1793) [place] [address] POCT-GLUCOSE [id number] 08:59:00 Test Item Value Reference Range Comments POC-GLUCOSE METER (BEAKER) 29 mg/dL 70-110 Will Repeat Test/TESTED AT (test ifbe=4709) [facility] [address] [facility] [address] POCT-GLUCOSE [id number] 06:52:00 Test Item Value Reference Range Comments POC-GLUCOSE METER (BEAKER) 492 mg/dL 70-110 Notified JORDON STAPLETON/TESTED AT [facility] (test hymg=4359) [address] [facility] [address] COMPREHENSIVE METABOLIC [id number] 06:27:00 Test Item Value Reference Range Comments TOTAL PROTEIN (BEAKER) 6.4 gm/dL 6.0-8.3 (test yzsw=950) ALBUMIN (BEAKER) (test 2.8 g/dL 3.5-5.0 evvq=9467) ALKALINE PHOSPHATASE 139 U/L 40-150 (BEAKER) (test amcd=761) BILIRUBIN TOTAL (BEAKER) 0.1 mg/dL 0.2-1.2 (test cigt=931) SODIUM (BEAKER) (test 134 meq/L 136-145 dpza=932) POTASSIUM (BEAKER) (test 5.3 meq/L 3.5-5.1 bsjb=731) CHLORIDE (BEAKER) (test 96 meq/L 98-107 ecoq=859) CO2 (BEAKER) (test 29 meq/L 22-29 oruu=556) BLOOD UREA NITROGEN 14 mg/dL 7-21 (BEAKER) (test npfj=122) CREATININE (BEAKER) (test 0.79 mg/dL 0.57-1.25 ddor=089) GLUCOSE RANDOM (BEAKER) 435 mg/dL 70-105 (test jcce=755) CALCIUM (BEAKER) (test 8.4 mg/dL 8.4-10.2 wefu=497) AST (SGOT) (BEAKER) (test 54 U/L 5-34 nmvl=632) ALT (SGPT) (BEAKER) (test 75 U/L 6-55 uaov=989) EGFR (BEAKER) (test 107 mL/min/1.73 sq ESTIMATED GFR IS NOT nydf=3392) m ACCURATE CREATININE CLEARANCE IN PREDICTING GLOMERULAR FILTRATION RATE. ESTIMATED GFR IS NOT APPLICABLE FOR DIALYSIS PATIENTS. CBC (HEMOGRAM ONLY)2018-02-28 05:50:00 Test Item Value Reference Range Comments WHITE BLOOD CELL COUNT (BEAKER) (test moqm=633) 16.3 K/ L 3.5-10.5 RED BLOOD CELL COUNT (BEAKER) (test ntwk=127) 3.49 M/ L 3.93-5.22 HEMOGLOBIN (BEAKER) (test pxym=861) 9.2 GM/DL 11.2-15.7 HEMATOCRIT (BEAKER) (test hmtg=316) 31.2 % 34.1-44.9 MEAN CORPUSCULAR VOLUME (BEAKER) (test bhhd=086) 89.4 fL 79.4-94.8 MEAN CORPUSCULAR HEMOGLOBIN (BEAKER) (test 26.4 pg 25.6-32.2 yjvo=623) MEAN CORPUSCULAR HEMOGLOBIN CONC (BEAKER) (test 29.5 GM/DL 32.2-35.5 yrbf=710) RED CELL DISTRIBUTION WIDTH (BEAKER) (test 18.7 % 11.7-14.4 egfn=965) PLATELET COUNT (BEAKER) (test evqg=157) 473 K/CU MM 150-450 MEAN PLATELET VOLUME (BEAKER) (test uuyl=591) 9.6 fL 9.4-12.3 NUCLEATED RED BLOOD CELLS (BEAKER) (test 0 /100 WBC 0-0 bako=247) POCT-GLUCOSE [id number] 17:54:00 Test Item Value Reference Range Comments POC-GLUCOSE METER (BEAKER) 386 mg/dL 70-110 Notified RN or MD Patient (test pqfw=4190) refused repeat test/TESTED AT [place] [id number] POCT-GLUCOSE [id number] 12:41:00 Test Item Value Reference Range Comments POC-GLUCOSE METER (BEAKER) 104 mg/dL 70-110 TESTED AT [address] (test pdep=7972) [place] [address] POCT-GLUCOSE [id number] 07:57:00 Test Item Value Reference Range Comments POC-GLUCOSE METER (BEAKER) 140 mg/dL 70-110 TESTED AT [address] (test icjv=0255) [place] [address] BASIC METABOLIC [id number] 05:36:00 Test Item Value Reference Range Comments SODIUM (BEAKER) (test 138 meq/L 136-145 trqs=199) POTASSIUM (BEAKER) (test 4.7 meq/L 3.5-5.1 kyck=660) CHLORIDE (BEAKER) (test 97 meq/L 98-107 kirr=888) CO2 (BEAKER) (test 33 meq/L 22-29 rvwf=539) BLOOD UREA NITROGEN 15 mg/dL 7-21 (BEAKER) (test lwgg=131) CREATININE (BEAKER) (test 0.64 mg/dL 0.57-1.25 vaqn=170) GLUCOSE RANDOM (BEAKER) 135 mg/dL 70-105 (test gesf=831) CALCIUM (BEAKER) (test 8.6 mg/dL 8.4-10.2 jjvk=932) EGFR (BEAKER) (test 137 mL/min/1.73 sq m ESTIMATED GFR IS NOT ezyo=1700) ACCURATE CREATININE CLEARANCE IN PREDICTING GLOMERULAR FILTRATION RATE. ESTIMATED GFR IS NOT APPLICABLE FOR DIALYSIS PATIENTS. CBC (HEMOGRAM ONLY)2018-02-27 05:15:00 Test Item Value Reference Range Comments WHITE BLOOD CELL COUNT (BEAKER) (test cvbo=226) 13.8 K/ L 3.5-10.5 RED BLOOD CELL COUNT (BEAKER) (test iehq=514) 3.46 M/ L 3.93-5.22 HEMOGLOBIN (BEAKER) (test szmv=514) 9.0 GM/DL 11.2-15.7 HEMATOCRIT (BEAKER) (test ifbo=069) 30.3 % 34.1-44.9 MEAN CORPUSCULAR VOLUME (BEAKER) (test dbrg=435) 87.6 fL 79.4-94.8 MEAN CORPUSCULAR HEMOGLOBIN (BEAKER) (test 26.0 pg 25.6-32.2 ifsh=596) MEAN CORPUSCULAR HEMOGLOBIN CONC (BEAKER) (test 29.7 GM/DL 32.2-35.5 qecn=566) RED CELL DISTRIBUTION WIDTH (BEAKER) (test 18.4 % 11.7-14.4 ghgb=025) PLATELET COUNT (BEAKER) (test tfam=098) 473 K/CU MM 150-450 MEAN PLATELET VOLUME (BEAKER) (test kktg=540) 9.6 fL 9.4-12.3 NUCLEATED RED BLOOD CELLS (BEAKER) (test 0 /100 WBC 0-0 zwgc=481) POCT-GLUCOSE [id number] 21:46:00 Test Item Value Reference Range Comments POC-GLUCOSE METER (BEAKER) 117 mg/dL 70-110 TESTED AT [address] (test gmrs=8941) [place] [address] POCT-GLUCOSE [id number] 17:44:00 Test Item Value Reference Range Comments POC-GLUCOSE METER (BEAKER) 142 mg/dL 70-110 TESTED AT [address] (test zrbd=5645) [place] [address] POCT-GLUCOSE [id number] 12:49:00 Test Item Value Reference Range Comments POC-GLUCOSE METER (BEAKER) 420 mg/dL 70-110 TESTED AT [address] (test xcfc=2493) [place] [address] POCT-GLUCOSE [id number] 08:52:00 Test Item Value Reference Range Comments POC-GLUCOSE METER (BEAKER) 381 mg/dL 70-110 TESTED AT [address] (test ztsa=7380) [place] [address] BASIC METABOLIC [id number] 05:59:00 Test Item Value Reference Range Comments SODIUM (BEAKER) (test 141 meq/L 136-145 vons=684) POTASSIUM (BEAKER) (test 4.0 meq/L 3.5-5.1 lgrv=709) CHLORIDE (BEAKER) (test 103 meq/L 98-107 uepp=782) CO2 (BEAKER) (test 26 meq/L 22-29 pshl=919) BLOOD UREA NITROGEN 14 mg/dL 7-21 (BEAKER) (test reak=528) CREATININE (BEAKER) (test 0.68 mg/dL 0.57-1.25 zras=145) GLUCOSE RANDOM (BEAKER) 181 mg/dL 70-105 (test upyk=198) CALCIUM (BEAKER) (test 8.3 mg/dL 8.4-10.2 ooji=418) EGFR (BEAKER) (test 128 mL/min/1.73 sq m ESTIMATED GFR IS NOT qkdy=4651) ACCURATE CREATININE CLEARANCE IN PREDICTING GLOMERULAR FILTRATION RATE. ESTIMATED GFR IS NOT APPLICABLE FOR DIALYSIS PATIENTS. CBC (HEMOGRAM ONLY)2018-02-26 05:02:00 Test Item Value Reference Range Comments WHITE BLOOD CELL COUNT (BEAKER) (test sjyq=549) 13.4 K/ L 3.5-10.5 RED BLOOD CELL COUNT (BEAKER) (test intd=845) 3.36 M/ L 3.93-5.22 HEMOGLOBIN (BEAKER) (test dvnv=543) 9.0 GM/DL 11.2-15.7 HEMATOCRIT (BEAKER) (test wdso=331) 29.6 % 34.1-44.9 MEAN CORPUSCULAR VOLUME (BEAKER) (test ybju=776) 88.1 fL 79.4-94.8 MEAN CORPUSCULAR HEMOGLOBIN (BEAKER) (test 26.8 pg 25.6-32.2 jjdf=040) MEAN CORPUSCULAR HEMOGLOBIN CONC (BEAKER) (test 30.4 GM/DL 32.2-35.5 aibc=271) RED CELL DISTRIBUTION WIDTH (BEAKER) (test 17.9 % 11.7-14.4 edfe=241) PLATELET COUNT (BEAKER) (test yisf=801) 423 K/CU MM 150-450 MEAN PLATELET VOLUME (BEAKER) (test vbta=671) 9.9 fL 9.4-12.3 NUCLEATED RED BLOOD CELLS (BEAKER) (test 0 /100 WBC 0-0 ixqv=771) POCT-GLUCOSE [id number] 23:16:00 Test Item Value Reference Range Comments POC-GLUCOSE METER (BEAKER) 146 mg/dL 70-110 TESTED AT [address] (test xcxe=4374) [place] [address] POCT-GLUCOSE [id number] 19:07:00 Test Item Value Reference Range Comments POC-GLUCOSE METER (BEAKER) 268 mg/dL 70-110 TESTED AT [address] (test vkwd=2010) [facility] [address] POCT-GLUCOSE [id number] 15:33:00 Test Item Value Reference Range Comments POC-GLUCOSE METER (BEAKER) 288 mg/dL 70-110 TESTED AT [address] (test ebfs=5197) [place] [address] POCT-GLUCOSE [id number] 15:17:00 Test Item Value Reference Range Comments POC-GLUCOSE METER (BEAKER) 79 mg/dL 70-110 TESTED AT [address] (test mokg=9820) [place] [address] POCT-GLUCOSE [id number] 12:53:00 Test Item Value Reference Range Comments POC-GLUCOSE METER (BEAKER) 48 mg/dL 70-110 Patient on insulin Drip/TESTED (test fnig=5305) AT [place] [id number] [place] [address] RAD, ABDOMEN/KUB, 1 VIEW [id number] 08:30:00Reason for exam:->Monitor constipationFINAL REPORT Chest one view compared to February Discussion: There is moderate retained feces overall similar in appearance. No evidence of bowel distention. No evidence of free intraperitoneal air. No concerning calcification. Signed: Flip Choe Verified Date/Time: 02/25/2018 08:30:00 Reading Location: [facility] Radiology Reading Room Electronically signed by: FLIP CHOE M.D. on 01/2018 08:30 AMPOCT-GLUCOSE [id number] 08:15:00 Test Item Value Reference Range Comments POC-GLUCOSE METER (BEAKER) 83 mg/dL 70-110 TESTED AT [address] (test pljg=9088) [place] [address] CF RESPIRATORY [id number] 00:03:00 Test Item Value Reference Range Comments CULTURE (BEAKER) (test PSEUDOMONAS 3+ Pseudomonas gnsa=0117) AERUGINOSA aeruginosa (MUCOID-PHENOTYPE) (Mucoid-phenotype) Amikacin (test code=1) Susceptible 0-16 , Resistant <0 or >16 Aztreonam (test Susceptible 0-8 , code=32) Resistant <0 or >8 Cefepime (test code=51) Susceptible 0-8 , Resistant <0 or >8 Ceftazidime (test Susceptible 0-8 , code=27) Resistant <0 or >8 Ciprofloxacin (test Susceptible 0-1 , code=7) Resistant <0 or >1 Doripenem (test Susceptible 0-2 , piyp=111) Resistant <0 or >2 Gentamicin (test Susceptible 0-4 , code=18) Resistant <0 or >4 Imipenem (test code=19) Susceptible 0-2 , Resistant <0 or >2 Levofloxacin (test Susceptible 0-2 , code=22) Resistant <0 or >2 Meropenem (test Susceptible 0-2 , code=34) Resistant <0 or >2 Piperacillin (test Susceptible 0-16 , code=24) Resistant <0 or >16 Piperacillin + Susceptible 0-16 , Tazobactam (test Resistant <0 or >16 code=29) Tobramycin (test Susceptible 0-4 , code=25) Resistant <0 or >4 CULTURE (BEAKER) (test PSEUDOMONAS 3+ Pseudomonas ruth=5150) AERUGINOSA aeruginosa (MUCOID-PHENOTYPE) (Mucoid-phenotype)of a second type Amikacin (test code=1) Susceptible 0-16 , Resistant <0 or >16 Aztreonam (test Susceptible 0-8 , code=32) Resistant <0 or >8 Cefepime (test code=51) Susceptible 0-8 , Resistant <0 or >8 Ceftazidime (test Susceptible 0-8 , code=27) Resistant <0 or >8 Ciprofloxacin (test Susceptible 0-1 , code=7) Resistant <0 or >1 Doripenem (test Susceptible 0-2 , bqga=427) Resistant <0 or >2 Gentamicin (test Susceptible 0-4 , code=18) Resistant <0 or >4 Imipenem (test code=19) Susceptible 0-2 , Resistant <0 or >2 Levofloxacin (test Susceptible 0-2 , code=22) Resistant <0 or >2 Meropenem (test Susceptible 0-2 , code=34) Resistant <0 or >2 Piperacillin (test Susceptible 0-16 , code=24) Resistant <0 or >16 Piperacillin + Susceptible 0-16 , Tazobactam (test Resistant <0 or >16 code=29) Tobramycin (test Susceptible 0-4 , code=25) Resistant <0 or >4 CULTURE (BEAKER) (test PSEUDOMONAS 2+ Pseudomonas kqyr=1252) AERUGINOSA aeruginosaof a third type Amikacin (test code=1) Susceptible 0-16 , Resistant <0 or >16 Aztreonam (test Susceptible 0-8 , code=32) Resistant <0 or >8 Cefepime (test code=51) Susceptible 0-8 , Resistant <0 or >8 Ceftazidime (test Susceptible 0-8 , code=27) Resistant <0 or >8 Ciprofloxacin (test Susceptible 0-1 , code=7) Resistant <0 or >1 Doripenem (test Susceptible 0-2 , bpld=734) Resistant <0 or >2 Gentamicin (test Susceptible 0-4 , code=18) Resistant <0 or >4 Imipenem (test code=19) Susceptible 0-2 , Resistant <0 or >2 Levofloxacin (test Susceptible 0-2 , code=22) Resistant <0 or >2 Meropenem (test Susceptible 0-2 , code=34) Resistant <0 or >2 Piperacillin (test Susceptible 0-16 , code=24) Resistant <0 or >16 Piperacillin + Susceptible 0-16 , Tazobactam (test Resistant <0 or >16 code=29) Tobramycin (test Susceptible 0-4 , code=25) Resistant <0 or >4 3+ Normal respiratory derick presentPOCT-GLUCOSE [id number] 21:18:00 Test Item Value Reference Range Comments POC-GLUCOSE METER (BEAKER) 311 mg/dL 70-110 TESTED AT [address] (test rxof=3281) [place] [id number] POCT-GLUCOSE [id number] 17:13:00 Test Item Value Reference Range Comments POC-GLUCOSE METER (BEAKER) 319 mg/dL 70-110 TESTED AT [address] (test apye=5087) [place] [address] POCT-GLUCOSE [id number] 12:28:00 Test Item Value Reference Range Comments POC-GLUCOSE METER (BEAKER) 415 mg/dL 70-110 Notified JORDON STAPLETON/TESTED AT [facility] (test vsaa=6535) [address] [place] [address] BLOOD [id number] 06:00:00 Test Item Value Reference Range Comments CULTURE (BEAKER) (test dlki=0317) No growth in 5 days BLOOD [id number] 06:00:00 Test Item Value Reference Range Comments CULTURE (BEAKER) (test tzrb=9788) No growth in 5 days LACTIC ACID, VENOUS, WHOLE [id number] 05:46:00 Test Item Value Reference Range Comments LACTATE BLOOD VENOUS (2) (BEAKER) (test 1.0 mmol/L 0.5-2.2 koxe=4287) Effective 02/26/2016: Units/Reference Range ChangeNew: 0.5-2.2 mmol/L Previous: 5 -20 mg/dLBASIC METABOLIC [id number] 05:41:00 Test Item Value Reference Range Comments SODIUM (BEAKER) (test 135 meq/L 136-145 ebpw=421) POTASSIUM (BEAKER) (test 4.8 meq/L 3.5-5.1 xeyv=290) CHLORIDE (BEAKER) (test 100 meq/L 98-107 gnjf=888) CO2 (BEAKER) (test 28 meq/L 22-29 yblq=497) BLOOD UREA NITROGEN 27 mg/dL 7-21 (BEAKER) (test pacx=246) CREATININE (BEAKER) (test 0.78 mg/dL 0.57-1.25 qzbj=902) GLUCOSE RANDOM (BEAKER) 309 mg/dL 70-105 (test qpmc=179) CALCIUM (BEAKER) (test 8.8 mg/dL 8.4-10.2 rosa=446) EGFR (BEAKER) (test 109 mL/min/1.73 sq m ESTIMATED GFR IS NOT nost=4147) ACCURATE CREATININE CLEARANCE IN PREDICTING GLOMERULAR FILTRATION RATE. ESTIMATED GFR IS NOT APPLICABLE FOR DIALYSIS PATIENTS. CBC W/PLT COUNT & AUTO [id number] 05:27:00 Test Item Value Reference Range Comments WHITE BLOOD CELL COUNT (BEAKER) (test sxdk=475) 19.9 K/ L 3.5-10.5 RED BLOOD CELL COUNT (BEAKER) (test wzzq=893) 3.20 M/ L 3.93-5.22 HEMOGLOBIN (BEAKER) (test fmux=626) 8.3 GM/DL 11.2-15.7 HEMATOCRIT (BEAKER) (test rinc=029) 27.7 % 34.1-44.9 MEAN CORPUSCULAR VOLUME (BEAKER) (test jiyx=603) 86.6 fL 79.4-94.8 MEAN CORPUSCULAR HEMOGLOBIN (BEAKER) (test 25.9 pg 25.6-32.2 uzbc=879) MEAN CORPUSCULAR HEMOGLOBIN CONC (BEAKER) (test 30.0 GM/DL 32.2-35.5 wlqf=436) RED CELL DISTRIBUTION WIDTH (BEAKER) (test 16.7 % 11.7-14.4 rqmg=751) PLATELET COUNT (BEAKER) (test jevw=903) 320 K/CU MM 150-450 MEAN PLATELET VOLUME (BEAKER) (test hyja=494) 10.8 fL 9.4-12.3 NUCLEATED RED BLOOD CELLS (BEAKER) (test 0 /100 WBC 0-0 jjvl=070) NEUTROPHILS RELATIVE PERCENT (BEAKER) (test 79 % euhe=915) LYMPHOCYTES RELATIVE PERCENT (BEAKER) (test 13 % sxtk=961) MONOCYTES RELATIVE PERCENT (BEAKER) (test 5 % yece=539) EOSINOPHILS RELATIVE PERCENT (BEAKER) (test 1 % bwkv=951) BASOPHILS RELATIVE PERCENT (BEAKER) (test 0 % lglm=453) NEUTROPHILS ABSOLUTE COUNT (BEAKER) (test 15.63 K/ L 1.56-6.13 obub=179) LYMPHOCYTES ABSOLUTE COUNT (BEAKER) (test 2.50 K/ L 1.18-3.74 qmof=885) MONOCYTES ABSOLUTE COUNT (BEAKER) (test 1.03 K/ L 0.24-0.36 usxn=052) EOSINOPHILS ABSOLUTE COUNT (BEAKER) (test 0.25 K/ L 0.04-0.36 iwio=964) BASOPHILS ABSOLUTE COUNT (BEAKER) (test 0.04 K/ L 0.01-0.08 iqfo=036) IMMATURE GRANULOCYTES-RELATIVE PERCENT (BEAKER) 2 % 0-1 (test gwai=4176) POCT-GLUCOSE [id number] 21:47:00 Test Item Value Reference Range Comments POC-GLUCOSE METER (BEAKER) 258 mg/dL 70-110 TESTED AT [address] (test avxv=2500) [place] [id number] POCT-GLUCOSE [id number] 17:44:00 Test Item Value Reference Range Comments POC-GLUCOSE METER (BEAKER) 151 mg/dL 70-110 TESTED AT [address] (test exth=3529) [place] [address] RAD, ABDOMEN/KUB, 1 VIEW [id number] 15:48:00Reason for exam:->eval for ileus vs obstructionFINAL REPORT Two abdomen images compared to February 20, 2018 Discussion: Moderate retained feces. No evidence of small bowel distention. No evidence of free intraperitoneal air. Regional bones are unremarkable. No concerning calcification. Signed: Flip Choe Verified Date/Time: 02/23/2018 15:48:56 Reading Location: [address] Consult Reading Room Electronicallysigned by: FLIP CHOE M.D. on 02/23/2018 03: 48 PMPOCT-GLUCOSE [id number] 12:11:00 Test Item Value Reference Range Comments POC-GLUCOSE METER (BEAKER) 479 mg/dL 70-110 TESTED AT [address] (test ohdd=7714) [facility] [address] POCT-GLUCOSE [id number] 08:30:00 Test Item Value Reference Range Comments POC-GLUCOSE METER (BEAKER) > mg/dL 70-110 OUTSIDE MEASURING RANGENotified RN (test tdor=1972) MD/TESTED AT [address] [address] BASIC METABOLIC [id number] 05:51:00 Test Item Value Reference Range Comments SODIUM (BEAKER) (test 134 meq/L 136-145 uykw=120) POTASSIUM (BEAKER) (test 5.1 meq/L 3.5-5.1 kfpa=387) CHLORIDE (BEAKER) (test 98 meq/L 98-107 rxgt=013) CO2 (BEAKER) (test 28 meq/L 22-29 wyzo=604) BLOOD UREA NITROGEN 21 mg/dL 7-21 (BEAKER) (test asxf=422) CREATININE (BEAKER) (test 0.72 mg/dL 0.57-1.25 upuw=402) GLUCOSE RANDOM (BEAKER) 398 mg/dL 70-105 (test ssqr=126) CALCIUM (BEAKER) (test 8.6 mg/dL 8.4-10.2 wdxc=020) EGFR (BEAKER) (test 120 mL/min/1.73 sq m ESTIMATED GFR IS NOT cbew=6903) ACCURATE CREATININE CLEARANCE IN PREDICTING GLOMERULAR FILTRATION RATE. ESTIMATED GFR IS NOT APPLICABLE FOR DIALYSIS PATIENTS. CBC W/PLT COUNT & AUTO [id number] 05:39:00 Test Item Value Reference Range Comments WHITE BLOOD CELL COUNT (BEAKER) (test iqkr=165) 18.6 K/ L 3.5-10.5 RED BLOOD CELL COUNT (BEAKER) (test ndut=422) 3.25 M/ L 3.93-5.22 HEMOGLOBIN (BEAKER) (test muai=498) 8.7 GM/DL 11.2-15.7 HEMATOCRIT (BEAKER) (test ufko=741) 28.2 % 34.1-44.9 MEAN CORPUSCULAR VOLUME (BEAKER) (test deql=376) 86.8 fL 79.4-94.8 MEAN CORPUSCULAR HEMOGLOBIN (BEAKER) (test 26.8 pg 25.6-32.2 bkul=765) MEAN CORPUSCULAR HEMOGLOBIN CONC (BEAKER) (test 30.9 GM/DL 32.2-35.5 neaw=098) RED CELL DISTRIBUTION WIDTH (BEAKER) (test 16.4 % 11.7-14.4 cttw=680) PLATELET COUNT (BEAKER) (test gwyw=064) 288 K/CU MM 150-450 MEAN PLATELET VOLUME (BEAKER) (test cwge=616) 10.8 fL 9.4-12.3 NUCLEATED RED BLOOD CELLS (BEAKER) (test 0 /100 WBC 0-0 xyce=010) NEUTROPHILS RELATIVE PERCENT (BEAKER) (test 89 % izgw=270) LYMPHOCYTES RELATIVE PERCENT (BEAKER) (test 6 % lrla=945) MONOCYTES RELATIVE PERCENT (BEAKER) (test 3 % xvcn=183) EOSINOPHILS RELATIVE PERCENT (BEAKER) (test 0 % ruiz=820) BASOPHILS RELATIVE PERCENT (BEAKER) (test 0 % uxgs=507) NEUTROPHILS ABSOLUTE COUNT (BEAKER) (test 16.59 K/ L 1.56-6.13 dhjy=098) LYMPHOCYTES ABSOLUTE COUNT (BEAKER) (test 1.20 K/ L 1.18-3.74 jszf=336) MONOCYTES ABSOLUTE COUNT (BEAKER) (test 0.56 K/ L 0.24-0.36 ckqb=609) EOSINOPHILS ABSOLUTE COUNT (BEAKER) (test 0.02 K/ L 0.04-0.36 mrqj=664) BASOPHILS ABSOLUTE COUNT (BEAKER) (test 0.02 K/ L 0.01-0.08 fdfu=518) IMMATURE GRANULOCYTES-RELATIVE PERCENT (BEAKER) 1 % 0-1 (test rxdz=1483) POCT-GLUCOSE [id number] 21:48:00 Test Item Value Reference Range Comments POC-GLUCOSE METER (BEAKER) 405 mg/dL 70-[address] [facility] [address] [facility] (test chng=7423) [facility] [address] POCT-GLUCOSE [id number] 17:42:00 Test Item Value Reference Range Comments POC-GLUCOSE METER (BEAKER) 325 mg/dL 70-110 Notified RN or MD Patient (test ktnc=4259) refused repeat test/TESTED AT [address] [address] POCT-GLUCOSE [id number] 13:00:00 Test Item Value Reference Range Comments POC-GLUCOSE METER (BEAKER) 62 mg/dL 70-110 Notified RN MD/TESTED AT [facility] (test bqoe=0372) [address] [place] [address] POCT-GLUCOSE [id number] 12:20:00 Test Item Value Reference Range Comments POC-GLUCOSE METER (BEAKER) 50 mg/dL 70-110 Will Repeat Test/TESTED AT (test mxnr=5402) [address] [address] POCT-GLUCOSE [id number] 12:20:00 Test Item Value Reference Range Comments POC-GLUCOSE METER (BEAKER) 37 mg/dL 70-110 Notified RN or MD Patient (test ieme=3165) refused repeat test/TESTED AT [address] [address] POCT-GLUCOSE [id number] 08:11:00 Test Item Value Reference Range Comments POC-GLUCOSE METER (BEAKER) 372 mg/dL 70-110 TESTED AT [address] (test dllq=8424) [facility] [address] BASIC METABOLIC [id number] 06:08:00 Test Item Value Reference Range Comments SODIUM (BEAKER) (test 135 meq/L 136-145 pgkp=861) POTASSIUM (BEAKER) (test 4.2 meq/L 3.5-5.1 oiqr=874) CHLORIDE (BEAKER) (test 102 meq/L 98-107 vdbq=772) CO2 (BEAKER) (test 26 meq/L 22-29 hcjj=627) BLOOD UREA NITROGEN 25 mg/dL 7-21 (BEAKER) (test zkzf=720) CREATININE (BEAKER) (test 0.69 mg/dL 0.57-1.25 zelo=783) GLUCOSE RANDOM (BEAKER) 296 mg/dL 70-105 (test uify=961) CALCIUM (BEAKER) (test 8.2 mg/dL 8.4-10.2 ygnv=166) EGFR (BEAKER) (test 126 mL/min/1.73 sq m ESTIMATED GFR IS NOT ealh=4509) ACCURATE CREATININE CLEARANCE IN PREDICTING GLOMERULAR FILTRATION RATE. ESTIMATED GFR IS NOT APPLICABLE FOR DIALYSIS PATIENTS. CBC W/PLT COUNT & AUTO [id number] 05:42:00 Test Item Value Reference Range Comments WHITE BLOOD CELL COUNT (BEAKER) (test xbdy=492) 14.7 K/ L 3.5-10.5 RED BLOOD CELL COUNT (BEAKER) (test xgpf=052) 3.39 M/ L 3.93-5.22 HEMOGLOBIN (BEAKER) (test eqeo=970) 8.7 GM/DL 11.2-15.7 HEMATOCRIT (BEAKER) (test rmpp=318) 29.5 % 34.1-44.9 MEAN CORPUSCULAR VOLUME (BEAKER) (test quyg=398) 87.0 fL 79.4-94.8 MEAN CORPUSCULAR HEMOGLOBIN (BEAKER) (test 25.7 pg 25.6-32.2 btup=258) MEAN CORPUSCULAR HEMOGLOBIN CONC (BEAKER) (test 29.5 GM/DL 32.2-35.5 utvr=513) RED CELL DISTRIBUTION WIDTH (BEAKER) (test 16.2 % 11.7-14.4 egzs=556) PLATELET COUNT (BEAKER) (test mbxw=200) 294 K/CU MM 150-450 MEAN PLATELET VOLUME (BEAKER) (test gcpk=047) 11.2 fL 9.4-12.3 NUCLEATED RED BLOOD CELLS (BEAKER) (test 0 /100 WBC 0-0 tayu=045) NEUTROPHILS RELATIVE PERCENT (BEAKER) (test 72 % xjos=346) LYMPHOCYTES RELATIVE PERCENT (BEAKER) (test 19 % kouq=776) MONOCYTES RELATIVE PERCENT (BEAKER) (test 6 % dsyn=603) EOSINOPHILS RELATIVE PERCENT (BEAKER) (test 2 % jiyg=615) BASOPHILS RELATIVE PERCENT (BEAKER) (test 0 % adzw=178) NEUTROPHILS ABSOLUTE COUNT (BEAKER) (test 10.58 K/ L 1.56-6.13 jmst=086) LYMPHOCYTES ABSOLUTE COUNT (BEAKER) (test 2.80 K/ L 1.18-3.74 dakg=629) MONOCYTES ABSOLUTE COUNT (BEAKER) (test 0.84 K/ L 0.24-0.36 nizh=197) EOSINOPHILS ABSOLUTE COUNT (BEAKER) (test 0.34 K/ L 0.04-0.36 nibs=909) BASOPHILS ABSOLUTE COUNT (BEAKER) (test 0.03 K/ L 0.01-0.08 qkcr=086) IMMATURE GRANULOCYTES-RELATIVE PERCENT (BEAKER) 1 % 0-1 (test xwkf=0029) POCT-GLUCOSE [id number] 19:45:00 Test Item Value Reference Range Comments POC-GLUCOSE METER (BEAKER) 81 mg/dL 70-110 TESTED AT [address] (test kjil=6554) [place] [address] POCT-GLUCOSE [id number] 15:40:00 Test Item Value Reference Range Comments POC-GLUCOSE METER (BEAKER) 190 mg/dL 70-110 TESTED AT [address] (test zhrx=2898) [place] [address] POCT-GLUCOSE [id number] 10:56:00 Test Item Value Reference Range Comments POC-GLUCOSE METER (BEAKER) 262 mg/dL 70-110 TESTED AT [address] (test habb=4420) [place] [address] POCT-GLUCOSE [id number] 08:59:00 Test Item Value Reference Range Comments POC-GLUCOSE METER (BEAKER) 246 mg/dL 70-110 TESTED AT [address] (test iodu=8464) [place] [address] POCT-GLUCOSE [id number] 08:13:00 Test Item Value Reference Range Comments POC-GLUCOSE METER (BEAKER) 176 mg/dL 70-110 TESTED AT [address] (test ifpv=6887) [place] [address] POCT-GLUCOSE [id number] 07:18:00 Test Item Value Reference Range Comments POC-GLUCOSE METER (BEAKER) 193 mg/dL 70-110 TESTED AT [address] (test hsky=0432) [place] [address] POCT-GLUCOSE [id number] 06:35:00 Test Item Value Reference Range Comments POC-GLUCOSE METER (BEAKER) 178 mg/dL 70-110 TESTED AT [address] (test wlyk=4689) [place] [address] BASIC METABOLIC [id number] 06:18:00 Test Item Value Reference Range Comments SODIUM (BEAKER) (test 138 meq/L 136-145 mkfu=905) POTASSIUM (BEAKER) (test 4.3 meq/L 3.5-5.1 xxyp=147) CHLORIDE (BEAKER) (test 105 meq/L 98-107 dazl=635) CO2 (BEAKER) (test 26 meq/L 22-29 ibak=558) BLOOD UREA NITROGEN 19 mg/dL 7-21 (BEAKER) (test hfiw=574) CREATININE (BEAKER) (test 0.67 mg/dL 0.57-1.25 trbl=882) GLUCOSE RANDOM (BEAKER) 142 mg/dL 70-105 (test dnuv=488) CALCIUM (BEAKER) (test 8.4 mg/dL 8.4-10.2 kfxm=286) EGFR (BEAKER) (test 130 mL/min/1.73 sq m ESTIMATED GFR IS NOT rkxm=5780) ACCURATE CREATININE CLEARANCE IN PREDICTING GLOMERULAR FILTRATION RATE. ESTIMATED GFR IS NOT APPLICABLE FOR DIALYSIS PATIENTS. CBC W/PLT COUNT & AUTO [id number] 06:07:00 Test Item Value Reference Range Comments WHITE BLOOD CELL COUNT (BEAKER) (test pgjh=282) 12.9 K/ L 3.5-10.5 RED BLOOD CELL COUNT (BEAKER) (test jocf=272) 3.38 M/ L 3.93-5.22 HEMOGLOBIN (BEAKER) (test ltxy=642) 8.9 GM/DL 11.2-15.7 HEMATOCRIT (BEAKER) (test vjcq=047) 29.3 % 34.1-44.9 MEAN CORPUSCULAR VOLUME (BEAKER) (test gviw=785) 86.7 fL 79.4-94.8 MEAN CORPUSCULAR HEMOGLOBIN (BEAKER) (test 26.3 pg 25.6-32.2 skda=989) MEAN CORPUSCULAR HEMOGLOBIN CONC (BEAKER) (test 30.4 GM/DL 32.2-35.5 kwus=895) RED CELL DISTRIBUTION WIDTH (BEAKER) (test 15.7 % 11.7-14.4 ofzf=506) PLATELET COUNT (BEAKER) (test wkog=513) 301 K/CU MM 150-450 MEAN PLATELET VOLUME (BEAKER) (test soju=170) 10.5 fL 9.4-12.3 NUCLEATED RED BLOOD CELLS (BEAKER) (test 0 /100 WBC 0-0 tppw=186) NEUTROPHILS RELATIVE PERCENT (BEAKER) (test 71 % vyqm=013) LYMPHOCYTES RELATIVE PERCENT (BEAKER) (test 21 % illr=000) MONOCYTES RELATIVE PERCENT (BEAKER) (test 6 % luez=258) EOSINOPHILS RELATIVE PERCENT (BEAKER) (test 2 % oprh=342) BASOPHILS RELATIVE PERCENT (BEAKER) (test 0 % rjdo=147) NEUTROPHILS ABSOLUTE COUNT (BEAKER) (test 9.13 K/ L 1.56-6.13 ofwk=207) LYMPHOCYTES ABSOLUTE COUNT (BEAKER) (test 2.70 K/ L 1.18-3.74 asyx=916) MONOCYTES ABSOLUTE COUNT (BEAKER) (test 0.74 K/ L 0.24-0.36 ahar=431) EOSINOPHILS ABSOLUTE COUNT (BEAKER) (test 0.19 K/ L 0.04-0.36 aopg=791) BASOPHILS ABSOLUTE COUNT (BEAKER) (test 0.01 K/ L 0.01-0.08 lbry=973) IMMATURE GRANULOCYTES-RELATIVE PERCENT (BEAKER) 1 % 0-1 (test iurf=1857) POCT-GLUCOSE [id number] 05:15:00 Test Item Value Reference Range Comments POC-GLUCOSE METER (BEAKER) 169 mg/dL 70-110 TESTED AT [address] (test wrng=7689) [place] [address] POCT-GLUCOSE [id number] 04:27:00 Test Item Value Reference Range Comments POC-GLUCOSE METER (BEAKER) 271 mg/dL 70-110 TESTED AT [address] (test tgmt=0808) [place] [address] POCT-GLUCOSE [id number] 03:45:00 Test Item Value Reference Range Comments POC-GLUCOSE METER (BEAKER) 269 mg/dL 70-110 TESTED AT [address] (test qraz=1287) [place] [address] POCT-GLUCOSE [id number] 01:40:00 Test Item Value Reference Range Comments POC-GLUCOSE METER (BEAKER) 200 mg/dL 70-110 TESTED AT [address] (test gcxh=1807) [place] [address] BASIC METABOLIC [id number] 00:50:00 Test Item Value Reference Range Comments SODIUM (BEAKER) (test 138 meq/L 136-145 gikm=062) POTASSIUM (BEAKER) (test 4.0 meq/L 3.5-5.1 zwoh=453) CHLORIDE (BEAKER) (test 105 meq/L 98-107 wgdp=130) CO2 (BEAKER) (test 25 meq/L 22-29 olak=110) BLOOD UREA NITROGEN 19 mg/dL 7-21 (BEAKER) (test pirb=635) CREATININE (BEAKER) (test 0.71 mg/dL 0.57-1.25 kmwp=857) GLUCOSE RANDOM (BEAKER) 101 mg/dL 70-105 (test cemb=148) CALCIUM (BEAKER) (test 8.1 mg/dL 8.4-10.2 qesp=267) EGFR (BEAKER) (test 122 mL/min/1.73 sq m ESTIMATED GFR IS NOT jnvj=1334) ACCURATE CREATININE CLEARANCE IN PREDICTING GLOMERULAR FILTRATION RATE. ESTIMATED GFR IS NOT APPLICABLE FOR DIALYSIS PATIENTS. POCT-GLUCOSE [id number] 00:49:00 Test Item Value Reference Range Comments POC-GLUCOSE METER (BEAKER) 103 mg/dL 70-110 TESTED AT [address] (test ozup=9049) [place] [address] POCT-GLUCOSE [id number] 00:28:00 Test Item Value Reference Range Comments POC-GLUCOSE METER (BEAKER) 109 mg/dL 70-110 TESTED AT [address] (test ynrj=0070) [place] [address] POCT-GLUCOSE [id number] 23:10:00 Test Item Value Reference Range Comments POC-GLUCOSE METER (BEAKER) 191 mg/dL 70-110 TESTED AT [address] (test jvfo=3251) [place] [address] POCT-GLUCOSE [id number] 22:17:00 Test Item Value Reference Range Comments POC-GLUCOSE METER (BEAKER) 257 mg/dL 70-110 TESTED AT [address] (test fjol=6354) [facility] [address] POCT-GLUCOSE [id number] 21:28:00 Test Item Value Reference Range Comments POC-GLUCOSE METER (BEAKER) 261 mg/dL 70-110 TESTED AT [address] (test jvze=7540) [place] [address] POCT-GLUCOSE [id number] 20:19:00 Test Item Value Reference Range Comments POC-GLUCOSE METER (BEAKER) 223 mg/dL 70-110 TESTED AT [address] (test xtux=0530) [place] [address] POCT-GLUCOSE [id number] 19:30:00 Test Item Value Reference Range Comments POC-GLUCOSE METER (BEAKER) 218 mg/dL 70-110 TESTED AT [address] (test hstz=5571) [place] [address] POCT-GLUCOSE [id number] 18:28:00 Test Item Value Reference Range Comments POC-GLUCOSE METER (BEAKER) 167 mg/dL 70-110 TESTED AT [address] (test rzcc=7513) [place] [address] BASIC METABOLIC [id number] 17:37:00 Test Item Value Reference Range Comments SODIUM (BEAKER) (test 136 meq/L 136-145 ppip=653) POTASSIUM (BEAKER) (test 4.2 meq/L 3.5-5.1 ajaf=660) CHLORIDE (BEAKER) (test 104 meq/L 98-107 yowk=724) CO2 (BEAKER) (test 23 meq/L 22-29 hawy=860) BLOOD UREA NITROGEN 17 mg/dL 7-21 (BEAKER) (test fqgt=742) CREATININE (BEAKER) (test 0.79 mg/dL 0.57-1.25 xfoi=318) GLUCOSE RANDOM (BEAKER) 340 mg/dL 70-105 (test bxkv=699) CALCIUM (BEAKER) (test 8.1 mg/dL 8.4-10.2 ortv=641) EGFR (BEAKER) (test 107 mL/min/1.73 sq m ESTIMATED GFR IS NOT xyhl=2304) ACCURATE CREATININE CLEARANCE IN PREDICTING GLOMERULAR FILTRATION RATE. ESTIMATED GFR IS NOT APPLICABLE FOR DIALYSIS PATIENTS. POCT-GLUCOSE [id number] 17:29:00 Test Item Value Reference Range Comments POC-GLUCOSE METER (BEAKER) 357 mg/dL 70-110 TESTED AT [address] (test pxhi=5399) [place] [address] POCT-GLUCOSE [id number] 16:17:00 Test Item Value Reference Range Comments POC-GLUCOSE METER (BEAKER) 412 mg/dL 70-110 TESTED AT [address] (test mwfh=3284) [place] [address] POCT-GLUCOSE [id number] 14:57:00 Test Item Value Reference Range Comments POC-GLUCOSE METER (BEAKER) 356 mg/dL 70-[address] [facility] [address] [facility] (test hcqq=2745) [facility] [address] POCT-GLUCOSE [id number] 14:08:00 Test Item Value Reference Range Comments POC-GLUCOSE METER (BEAKER) 247 mg/dL 70-[address] [facility] [address] [facility] (test anqf=8972) [facility] [address] RAD, ABDOMEN/KUB, 1 VIEW [id number] 14:07:00Reason for exam:->Abdominal pain, Cystic FibrosisShould this be performed at the bedside?->YesFINAL REPORT Two frontal views of the abdomen HISTORY: Abdominal pain COMPARISON: 05/03/2017 IMPRESSION: Moderate amount of stool in the colon. Nonobstructive bowel gas pattern. Bronchiectasis in the lungs. Lung bases otherwise clear. Signed: Michael Rosen MDReport Verified Date/Time: 2017 14:07:49 Reading Location: [address] Body Reading Room [facility] METABOLIC [id number] 13:15:00 Test Item Value Reference Range Comments SODIUM (BEAKER) (test 136 meq/L 136-145 ezxd=044) POTASSIUM (BEAKER) (test 3.7 meq/L 3.5-5.1 qscs=353) CHLORIDE (BEAKER) (test 104 meq/L 98-107 arzv=026) CO2 (BEAKER) (test 23 meq/L 22-29 kyqg=585) BLOOD UREA NITROGEN 14 mg/dL 7-21 (BEAKER) (test gfyc=964) CREATININE (BEAKER) (test 0.65 mg/dL 0.57-1.25 fltd=604) GLUCOSE RANDOM (BEAKER) 318 mg/dL 70-105 (test wiuo=277) CALCIUM (BEAKER) (test 8.4 mg/dL 8.4-10.2 wgeh=747) EGFR (BEAKER) (test 135 mL/min/1.73 sq m ESTIMATED GFR IS NOT gsjm=8184) ACCURATE CREATININE CLEARANCE IN PREDICTING GLOMERULAR FILTRATION RATE. ESTIMATED GFR IS NOT APPLICABLE FOR DIALYSIS PATIENTS. POCT-GLUCOSE [id number] 12:22:00 Test Item Value Reference Range Comments POC-GLUCOSE METER (BEAKER) 367 mg/dL 70-110 TESTED AT [address] (test kpai=8015) [place] [address] POCT-GLUCOSE [id number] 11:11:00 Test Item Value Reference Range Comments POC-GLUCOSE METER (BEAKER) 458 mg/dL 70-110 TESTED AT [address] (test rhvh=2120) [place] [address] [id number] 11:11:00 Test Item Value Reference Range Comments GLUCOSE RANDOM (BEAKER) (test bxje=308) 449 mg/dL 70-105 POCT-GLUCOSE [id number] 10:06:00 Test Item Value Reference Range Comments POC-GLUCOSE METER (BEAKER) > mg/dL 70-110 OUTSIDE MEASURING RANGETESTED AT (test xhvl=5755) [place] [address] SPUTUM CULTURE + GRAM [id number] 09:42:00 Test Item Value Reference Range Comments CULTURE (BEAKER) (test lexr=0928) See comment Culture charges credited as "incorrect order". Please refer to CF respiratory culture for results.Previously reported organism is no longer reported. Please contact the Microbiology Department for additional information.POCT- GLUCOSE [id number] 09:12:00 Test Item Value Reference Range Comments POC-GLUCOSE METER (BEAKER) 388 mg/dL 70-110 TESTED AT [address] (test egjr=1464) [place] [address] POCT-GLUCOSE [id number] 07:56:00 Test Item Value Reference Range Comments POC-GLUCOSE METER (BEAKER) 194 mg/dL 70-110 TESTED AT [address] (test jwpr=8408) [place] [id number] POCT-GLUCOSE [id number] 06:35:00 Test Item Value Reference Range Comments POC-GLUCOSE METER (BEAKER) 157 mg/dL 70-110 TESTED AT [address] (test sdyg=3566) [place] [address] POCT-GLUCOSE [id number] 05:10:00 Test Item Value Reference Range Comments POC-GLUCOSE METER (BEAKER) 247 mg/dL 70-110 TESTED AT [address] (test fupw=1429) [place] [id number] BASIC METABOLIC [id number] 04:54:00 Test Item Value Reference Range Comments SODIUM (BEAKER) (test 135 meq/L 136-145 afyg=826) POTASSIUM (BEAKER) (test 3.9 meq/L 3.5-5.1 jkqn=687) CHLORIDE (BEAKER) (test 104 meq/L 98-107 cumb=926) CO2 (BEAKER) (test 23 meq/L 22-29 biro=976) BLOOD UREA NITROGEN 20 mg/dL 7-21 (BEAKER) (test uzhy=708) CREATININE (BEAKER) (test 0.72 mg/dL 0.57-1.25 mhrd=798) GLUCOSE RANDOM (BEAKER) 263 mg/dL 70-105 (test gcdb=002) CALCIUM (BEAKER) (test 8.0 mg/dL 8.4-10.2 kzdg=329) EGFR (BEAKER) (test 120 mL/min/1.73 sq m ESTIMATED GFR IS NOT kvcb=5272) ACCURATE CREATININE CLEARANCE IN PREDICTING GLOMERULAR FILTRATION RATE. ESTIMATED GFR IS NOT APPLICABLE FOR DIALYSIS PATIENTS. POCT-GLUCOSE [id number] 04:07:00 Test Item Value Reference Range Comments POC-GLUCOSE METER (BEAKER) 290 mg/dL 70-110 TESTED AT [address] (test qggp=0608) [place] [address] POCT-GLUCOSE [id number] 03:04:00 Test Item Value Reference Range Comments POC-GLUCOSE METER (BEAKER) 309 mg/dL 70-110 TESTED AT [address] (test dqti=2662) [place] [address] POCT-GLUCOSE [id number] 01:36:00 Test Item Value Reference Range Comments POC-GLUCOSE METER (BEAKER) 361 mg/dL 70-110 TESTED AT [address] (test iagz=1767) [place] [address] POCT-GLUCOSE [id number] 00:06:00 Test Item Value Reference Range Comments POC-GLUCOSE METER (BEAKER) 308 mg/dL 70-110 TESTED AT [address] (test ubds=0858) [facility] [address] URINALYSIS W/ [id number] 23:11:00 Test Item Value Reference Range Comments COLOR (BEAKER) (test zfxh=790) Light Yellow CLARITY (BEAKER) (test xogk=846) Clear SPECIFIC GRAVITY UA (BEAKER) (test ptlb=960) 1.033 1.001-1.035 PH UA (BEAKER) (test ngpm=216) 6.0 5.0-8.0 PROTEIN UA (BEAKER) (test dzyw=362) 50 mg/dL Negative GLUCOSE UA (BEAKER) (test rogy=194) >1000 mg/dL Negative KETONES UA (BEAKER) (test vdmm=456) Negative Negative BILIRUBIN UA (BEAKER) (test dngl=978) Negative Negative BLOOD UA (BEAKER) (test qnwf=214) Negative Negative NITRITE UA (BEAKER) (test xiez=579) Negative Negative LEUKOCYTE ESTERASE UA (BEAKER) (test zefy=820) Negative Negative UROBILINOGEN UA (BEAKER) (test bpsl=450) 0.2 mg/dL 0.2-1.0 RBC UA (BEAKER) (test abxj=599) 3 /HPF WBC UA (BEAKER) (test iywa=475) 3 /HPF MUCUS (BEAKER) (test khwd=7261) Rare SQUAMOUS EPITHELIAL (BEAKER) (test ddhv=216) 1 /HPF SOURCE(BEAKER) (test vhqt=8422) Urine, Voided POCT-GLUCOSE [id number] 22:35:00 Test Item Value Reference Range Comments POC-GLUCOSE METER (BEAKER) 350 mg/dL 70-110 TESTED AT [address] (test loeh=0197) [facility] [address] POCT-GLUCOSE [id number] 21:17:00 Test Item Value Reference Range Comments POC-GLUCOSE METER (BEAKER) 438 mg/dL 70-110 TESTED AT [address] (test twgq=9915) [facility] [address] POCT-GLUCOSE [id number] 20:16:00 Test Item Value Reference Range Comments POC-GLUCOSE METER (BEAKER) 446 mg/dL 70-110 TESTED AT [address] (test jlwf=3295) [facility] [address] POCT-GLUCOSE [id number] 18:57:00 Test Item Value Reference Range Comments POC-GLUCOSE METER (BEAKER) 452 mg/dL 70-110 Will Repeat Test/TESTED AT (test fjpw=5180) [address] [address] [id number] 18:10:00 Test Item Value Reference Range Comments GLUCOSE RANDOM (BEAKER) (test dzbx=539) 548 mg/dL 70-105 If last glucose was less than 500, may do bedside glucose instead of serum glucose.POCT-GLUCOSE [id number] 17:46:00 Test Item Value Reference Range Comments POC-GLUCOSE METER (BEAKER) > mg/dL 70-110 OUTSIDE MEASURING RANGEWill (test rrph=9835) Repeat Test/TESTED AT [place] [address] POCT-GLUCOSE [id number] 16:37:00 Test Item Value Reference Range Comments POC-GLUCOSE METER (BEAKER) > mg/dL 70-110 OUTSIDE MEASURING RANGEWill (test drkn=9314) Repeat Test/TESTED AT [place] [address] [id number] 16:07:00 Test Item Value Reference Range Comments GLUCOSE RANDOM (BEAKER) (test sfug=573) 658 mg/dL 70-105 If last glucose was less than 500, may do bedside glucose instead of serum glucose.[id number] 15:53:00 Test Item Value Reference Range Comments POTASSIUM (BEAKER) (test fnmk=183) 4.2 meq/L 3.5-5.1 If last glucose was less than 500, may do bedside glucose instead of serum glucose.POCT-GLUCOSE [id number] 15:37:00 Test Item Value Reference Range Comments POC-GLUCOSE METER (BEAKER) > mg/dL 70-110 OUTSIDE MEASURING RANGETESTED AT (test sylh=4009) [place] [id number] 14:05:00 Test Item Value Reference Range Comments GLUCOSE RANDOM (BEAKER) (test yfdt=962) 682 mg/dL 70-105 If last glucose was less than 500, may do bedside glucose instead of serum glucose.[id number] 14:03:00 Test Item Value Reference Range Comments POTASSIUM (BEAKER) (test ygrf=975) 4.2 meq/L 3.5-5.1 If last glucose was less than 500, may do bedside glucose instead of serum glucose.KETONE, [id number] 13:59:00 Test Item Value Reference Range Comments KETONES, BLOOD (BEAKER) (test kiua=6605) 0.1 mmol/L <0.4 BASIC METABOLIC [id number] 10:48:00 Test Item Value Reference Range Comments SODIUM (BEAKER) (test 129 meq/L 136-145 oerf=365) POTASSIUM (BEAKER) (test 5.2 meq/L 3.5-5.1 mgnf=755) CHLORIDE (BEAKER) (test 91 meq/L 98-107 zoii=024) CO2 (BEAKER) (test 22 meq/L 22-29 cxgr=851) BLOOD UREA NITROGEN 18 mg/dL 7-21 (BEAKER) (test xbcd=027) CREATININE (BEAKER) (test 1.28 mg/dL 0.57-1.25 mira=294) GLUCOSE RANDOM (BEAKER) 889 mg/dL 70-105 (test qnux=477) CALCIUM (BEAKER) (test 8.1 mg/dL 8.4-10.2 syih=247) EGFR (BEAKER) (test 62 mL/min/1.73 sq m ESTIMATED GFR IS NOT lrrm=3945) ACCURATE CREATININE CLEARANCE IN PREDICTING GLOMERULAR FILTRATION RATE. ESTIMATED GFR IS NOT APPLICABLE FOR DIALYSIS PATIENTS. TROPONIN [id number] 10:40:00 Test Item Value Reference Range Comments TROPONIN I (BEAKER) (test pzpf=069) < ng/mL 0.00-0.03 Troponin I (TnI) levels must be interpreted in the context of the presenting symptoms and the clinical findings. Elevated TnI levels indicate myocardial damage, but are not specific for ischemic heart disease. Elevated TnI levels are seen in patients with other cardiac conditions (including myocarditis and congestive heart failure), and slight TnI elevations occur in patients with other conditions, including sepsis, renal failure, acidosis, acute neurological disease, and persistent tachyarrhythmia.POCT-GLUCOSE [id number] 09:51:00 Test Item Value Reference Range Comments POC-GLUCOSE METER (BEAKER) > mg/dL 70-110 OUTSIDE MEASURING RANGENotified RN (test bziu=4642) /TESTED AT [facility] [address] [facility] [address] POCT-GLUCOSE [id number] 08:34:00 Test Item Value Reference Range Comments POC-GLUCOSE METER (BEAKER) > mg/dL 70-110 OUTSIDE MEASURING RANGENotified RN (test icor=4503) /TESTED AT [facility] [address] [facility] [address] RESPIRATORY PANEL [id number] 07:53:00 Test Item Value Reference Range Comments HUMAN METAPNEUMOVIRUS (BEAKER) (test Not detected Not detected, Inconclusive eonb=6104) RHINOVIRUS (BEAKER) (test xvme=1170) Not detected Not detected, Inconclusive INFLUENZA A (BEAKER) (test Not detected Not detected, Inconclusive qegf=1907) INFLUENZA A SUBTYPE H1 (BEAKER) Not detected Not detected, Inconclusive (test jqxl=2565) INFLUENZA A SUBTYPE H3 (BEAKER) Not detected Not detected, Inconclusive (test sira=6422) INFLUENZA A SUBTYPE H1-2009 (BEAKER) Not detected Not detected, Inconclusive (test jcyf=9907) INFLUENZA B (BEAKER) (test Not detected Not detected, Inconclusive kaon=7955) RESPIRATORY SYNCYTIAL VIRUS (BEAKER) Not detected Not detected, Inconclusive (test unjw=3343) PARAINFLUENZA VIRUS 1 (BEAKER) (test Not detected Not detected, Inconclusive zpwt=7370) PARAINFLUENZA VIRUS 2 (BEAKER) (test Not detected Not detected, Inconclusive lafe=3735) PARAINFLUENZA VIRUS 3 (BEAKER) (test Not detected Not detected, Inconclusive wzry=3966) PARAINFLUENZA VIRUS 4 (BEAKER) (test Not detected Not detected, Inconclusive mddb=4657) ADENOVIRUS (BEAKER) (test mczs=8274) Not detected Not detected, Inconclusive CORONAVIRUS 229E (BEAKER) (test Not detected Not detected, Inconclusive jgtw=4018) CORONAVIRUS HKU1 (BEAKER) (test Not detected Not detected, Inconclusive nmtu=2094) CORONAVIRUS NL63 (BEAKER) (test Not detected Not detected, Inconclusive wlil=7150) CORONAVIRUS OC43 (BEAKER) (test Not detected Not detected, Inconclusive axex=5429) BORDETELLA PERTUSSIS (BEAKER) (test Not detected Not detected, Inconclusive yxci=7104) CHLAMYDOPHILA PNEUMONIAE (BEAKER) Not detected Not detected, Inconclusive (test heit=9999) MYCOPLASMA PNEUMONIAE (BEAKER) (test Not detected Not detected, Inconclusive vqvt=2876) HEMOGLOBIN [id number] 07:34:00 Test Item Value Reference Range Comments HEMOGLOBIN A1C (BEAKER) (test pjhk=601) 14.5 % 4.3-6.1 [id number] 05:23:00 Test Item Value Reference Range Comments BLOOD UREA NITROGEN (BEAKER) (test qhbj=889) 15 mg/dL 7-21 [id number] 05:23:00 Test Item Value Reference Range Comments CREATININE (BEAKER) (test 1.31 mg/dL 0.57-1.25 bvqc=367) EGFR (AKER) (test 60 mL/min/1.73 sq m ESTIMATED GFR IS NOT kvok=5582) ACCURATE CREATININE CLEARANCE IN PREDICTING GLOMERULAR FILTRATION RATE. ESTIMATED GFR IS NOT APPLICABLE FOR DIALYSIS PATIENTS. POCT-LACTIC ACID, [id number] 02:44:00 Test Item Value Reference Range Comments POC-LACTIC ACID, VENOUS 1.4 mmol/L 0.9-1.[address] [facility] [address] [facility] ([facility]) (test hbsk=2362) [facility] [address] TROPONIN [id number] 00:25:00 Test Item Value Reference Range Comments TROPONIN I (BEAKER) (test lhdh=669) < ng/mL 0.00-0.03 Troponin I (TnI) levels must be interpreted in the context of the presenting symptoms and the clinical findings. Elevated TnI levels indicate myocardial damage, but are not specific for ischemic heart disease. Elevated TnI levels are seen in patients with other cardiac conditions (including myocarditis and congestive heart failure), and slight TnI elevations occur in patients with other conditions, including sepsis, renal failure, acidosis, acute neurological disease, and persistent tachyarrhythmia.LACTIC ACID, VENOUS, WHOLE [id number] 00:16:00 Test Item Value Reference Range Comments LACTATE BLOOD VENOUS (2) (BEAKER) (test 2.1 mmol/L 0.5-2.2 upsu=6079) Effective 02/26/2016: Units/Reference Range ChangeNew: 0.5-2.2 mmol/L Previous: 5 -20 mg/dLKETONE, [id number] 23:58:00 Test Item Value Reference Range Comments KETONES, BLOOD (BEAKER) (test hudl=1249) 0.4 mmol/L <0.4 RAPID STREP A [id number] 23:13:00 Test Item Value Reference Range Comments STREP A ANTIGEN (BEAKER) (test kobw=707) Negative Negative TROPONIN [id number] 22:54:00 Test Item Value Reference Range Comments TROPONIN I (BEAKER) (test okjw=561) < ng/mL 0.00-0.03 Troponin I (TnI) levels must be interpreted in the context of the presenting symptoms and the clinical findings. Elevated TnI levels indicate myocardial damage, but are not specific for ischemic heart disease. Elevated TnI levels are seen in patients with other cardiac conditions (including myocarditis and congestive heart failure), and slight TnI elevations occur in patients with other conditions, including sepsis, renal failure, acidosis, acute neurological disease, and persistent tachyarrhythmia.CREATINE KINASE (CK), TOTAL AND [id number] 22:54:00 Test Item Value Reference Range Comments CREATINE KINASE TOTAL (BEAKER) (test 13 U/L 29-200 uiyq=210) CREATINE KINASE-MB (BEAKER) (test 0.1 ng/mL 0.0-6.6 yjzm=954) CREATINE KINASE-MB INDEX (BEAKER) (test 0.8 % Unable to Calculate rvfi=668) CK-MB Reference Range:<6.7 Normal6.7-10.0 Borderline>10.0 AbnormalCOMPREHENSIVE METABOLIC [id number] 22:48:00 Test Item Value Reference Range Comments TOTAL PROTEIN (BEAKER) 7.2 gm/dL 6.0-8.3 (test oufg=000) ALBUMIN (BEAKER) (test 2.7 g/dL 3.5-5.0 gewg=0251) ALKALINE PHOSPHATASE 182 U/L 40-150 (BEAKER) (test dlff=448) BILIRUBIN TOTAL (BEAKER) 0.4 mg/dL 0.2-1.2 (test kfxr=106) SODIUM (BEAKER) (test 135 meq/L 136-145 ylqe=508) POTASSIUM (BEAKER) (test 3.8 meq/L 3.5-5.1 onuj=956) CHLORIDE (BEAKER) (test 95 meq/L 98-107 asgk=991) CO2 (BEAKER) (test 28 meq/L 22-29 xoap=617) BLOOD UREA NITROGEN 8 mg/dL 7-21 (BEAKER) (test jvdw=842) CREATININE (BEAKER) (test 0.68 mg/dL 0.57-1.25 kxsu=689) GLUCOSE RANDOM (BEAKER) 180 mg/dL 70-105 (test yqxw=720) CALCIUM (BEAKER) (test 9.0 mg/dL 8.4-10.2 xajz=350) AST (SGOT) (BEAKER) (test 9 U/L 5-34 khry=599) ALT (SGPT) (BEAKER) (test 6 U/L 6-55 ehbs=729) EGFR (BEAKER) (test 128 mL/min/1.73 sq ESTIMATED GFR IS NOT drxo=5373) m ACCURATE CREATININE CLEARANCE IN PREDICTING GLOMERULAR FILTRATION RATE. ESTIMATED GFR IS NOT APPLICABLE FOR DIALYSIS PATIENTS. RAPID INFLUENZA A&B [id number] 22:47:00 Test Item Value Reference Range Comments RAPID INFLUENZA A AG (BEAKER) (test Negative Negative, Inconclusive ykad=8177) RAPID INFLUENZA B AG (BEAKER) (test Negative Negative, Inconclusive xxzo=4268) LACTIC ACID, VENOUS, WHOLE [id number] 22:43:00 Test Item Value Reference Range Comments LACTATE BLOOD VENOUS (2) (BEAKER) (test 0.9 mmol/L 0.5-2.2 aerl=6577) Effective 02/26/2016: Units/Reference Range ChangeNew: 0.5-2.2 mmol/L Previous: 5 -20 mg/dLPOCT-LACTIC ACID, [id number] 22:36:00 Test Item Value Reference Range Comments POC-LACTIC ACID, VENOUS 0.7 mmol/L 0.9-1.[address] [facility] [address] [place] [address] ([facility]) (test eqoc=3092) [facility] [address] POCT-GLUCOSE [id number] 22:35:00 Test Item Value Reference Range Comments POC-GLUCOSE METER (BEAKER) 191 mg/dL 70-[address] [facility] [address] [facility] (test ohkc=0391) [facility] [address] CBC W/PLT COUNT & AUTO [id number] 22:33:00 Test Item Value Reference Range Comments WHITE BLOOD CELL COUNT (BEAKER) (test zrqo=353) 19.5 K/ L 3.5-10.5 RED BLOOD CELL COUNT (BEAKER) (test nxwu=445) 4.00 M/ L 3.93-5.22 HEMOGLOBIN (BEAKER) (test donw=776) 10.6 GM/DL 11.2-15.7 HEMATOCRIT (BEAKER) (test uqwt=503) 33.5 % 34.1-44.9 MEAN CORPUSCULAR VOLUME (BEAKER) (test wane=955) 83.8 fL 79.4-94.8 MEAN CORPUSCULAR HEMOGLOBIN (BEAKER) (test 26.5 pg 25.6-32.2 motf=820) MEAN CORPUSCULAR HEMOGLOBIN CONC (BEAKER) (test 31.6 GM/DL 32.2-35.5 heot=701) RED CELL DISTRIBUTION WIDTH (BEAKER) (test 15.5 % 11.7-14.4 bytw=478) PLATELET COUNT (BEAKER) (test zoad=183) 357 K/CU MM 150-450 MEAN PLATELET VOLUME (BEAKER) (test zqby=045) 10.9 fL 9.4-12.3 NUCLEATED RED BLOOD CELLS (BEAKER) (test 0 /100 WBC 0-0 elmo=780) NEUTROPHILS RELATIVE PERCENT (BEAKER) (test 83 % pzvi=737) LYMPHOCYTES RELATIVE PERCENT (BEAKER) (test 9 % trlf=420) MONOCYTES RELATIVE PERCENT (BEAKER) (test 7 % gusz=098) EOSINOPHILS RELATIVE PERCENT (BEAKER) (test 1 % edmp=172) BASOPHILS RELATIVE PERCENT (BEAKER) (test 0 % jhlw=981) NEUTROPHILS ABSOLUTE COUNT (BEAKER) (test 16.10 K/ L 1.56-6.13 xvid=813) LYMPHOCYTES ABSOLUTE COUNT (BEAKER) (test 1.79 K/ L 1.18-3.74 nxbi=704) MONOCYTES ABSOLUTE COUNT (BEAKER) (test 1.37 K/ L 0.24-0.36 zbng=691) EOSINOPHILS ABSOLUTE COUNT (BEAKER) (test 0.12 K/ L 0.04-0.36 liro=921) BASOPHILS ABSOLUTE COUNT (BEAKER) (test 0.04 K/ L 0.01-0.08 prtk=460) IMMATURE GRANULOCYTES-RELATIVE PERCENT (BEAKER) 1 % 0-1 (test txid=3340) RAD, CHEST, 1 VIEW, NON [id number] 22:18:00Reason for exam:->SHORTNESS OF BREATHShould this be performed at the bedside?->YesFINAL REPORT History: Shortness of breath. FINDINGS: Compared with November 29, 2017, reticulonodular and patchy airspace disease is again seen in the lungs bilaterally. No visible effusions. Right chest port position is unchanged. No pneumothorax. Heart and mediastinum are stable. No mediastinal or hilar adenopathy. Bones are unremarkable. IMPRESSION: 1. Diffuse bilateral mixedreticular nodule and pulmonary airspace opacity, unchanged since the previous study. No new cardiopulmonary abnormalities. Signed: Flip Qureshi Verified Date/Time: 02/18/2018 22:18:49 Reading Location: [facility] Diagnostic Imaging Reading Room - [place] [address] AFB CULTURE + [id number] 14:30: 00 Test Item Value Reference Range Comments CULTURE (BEAKER) (test No acid-fast bacilli isolated nblw=6277) in 42 days AFB SMEAR (BEAKER) (test No acid fast bacilli seen hxzd=076) FUNGUS CULTURE + [id number] 15:40:00 Test Item Value Reference Range Comments CULTURE (BEAKER) (test 1+ Clau dubliniensis kbdq=6531) FUNGUS SMEAR (BEAKER) (test 1+ budding yeast sbie=2848) CF RESPIRATORY [id number] 10:56:00 Test Item Value Reference Range Comments CULTURE (BEAKER) (test ongk=8876) Amikacin (test code=1) Susceptible 0-16 , Resistant <0 or >16 Aztreonam (test Susceptible 0-8 , code=32) Resistant <0 or >8 Cefepime (test code=51) Susceptible 0-8 , Resistant <0 or >8 Ceftazidime (test Susceptible 0-8 , code=27) Resistant <0 or >8 Ciprofloxacin (test Susceptible 0-1 , code=7) Resistant <0 or >1 Doripenem (test Susceptible 0-2 , qtmd=769) Resistant <0 or >2 Gentamicin (test Susceptible 0-4 , code=18) Resistant <0 or >4 Imipenem (test code=19) Susceptible 0-2 , Resistant <0 or >2 Levofloxacin (test Susceptible 0-2 , code=22) Resistant <0 or >2 Meropenem (test Susceptible 0-2 , code=34) Resistant <0 or >2 Piperacillin (test Susceptible 0-16 , code=24) Resistant <0 or >16 Piperacillin + Susceptible 0-16 , Tazobactam (test Resistant <0 or >16 code=29) Tobramycin (test Susceptible 0-4 , code=25) Resistant <0 or >4 CULTURE (BEAKER) (test PSEUDOMONAS 4+ Pseudomonas erbg=2258) AERUGINOSA aeruginosa (Mucoid-phenotype) Amikacin (test code=1) Susceptible 0-16 , Resistant <0 or >16 Aztreonam (test Susceptible 0-8 , code=32) Resistant <0 or >8 Cefepime (test code=51) Susceptible 0-8 , Resistant <0 or >8 Ceftazidime (test Susceptible 0-8 , code=27) Resistant <0 or >8 Ciprofloxacin (test Susceptible 0-1 , code=7) Resistant <0 or >1 Doripenem (test Susceptible 0-2 , bcpt=953) Resistant <0 or >2 Gentamicin (test Susceptible 0-4 , code=18) Resistant <0 or >4 Imipenem (test code=19) Susceptible 0-2 , Resistant <0 or >2 Levofloxacin (test Susceptible 0-2 , code=22) Resistant <0 or >2 Meropenem (test Susceptible 0-2 , code=34) Resistant <0 or >2 Piperacillin (test Susceptible 0-16 , code=24) Resistant <0 or >16 Piperacillin + Susceptible 0-16 , Tazobactam (test Resistant <0 or >16 code=29) Tobramycin (test Susceptible 0-4 , code=25) Resistant <0 or >4 CULTURE (BEAKER) (test 4+ Pseudomonas dwjo=3490) aeruginosa 2+ Normal respiratory derick presentBLOOD [id number] 23:00:00 Test Item Value Reference Range Comments CULTURE (BEAKER) (test lpif=5018) No growth in 5 days BLOOD [id number] 23:00:00 Test Item Value Reference Range Comments CULTURE (BEAKER) (test fyod=2774) No growth in 5 days POCT-GLUCOSE [id number] 11:04:00 Test Item Value Reference Range Comments POC-GLUCOSE METER (BEAKER) 107 mg/dL 70-110 TESTED AT [address] (test bmvd=2490) [place] [address] POCT-GLUCOSE [id number] 08:39:00 Test Item Value Reference Range Comments POC-GLUCOSE METER (BEAKER) 90 mg/dL 70-110 TESTED AT [address] (test akll=2245) [place] [address] POCT-GLUCOSE [id number] 21:21:00 Test Item Value Reference Range Comments POC-GLUCOSE METER (BEAKER) 63 mg/dL 70-110 Notified JORDON STAPLETON/TESTED AT [facility] (test lfqa=9167) [address] [place] [address] POCT-GLUCOSE [id number] 17:03:00 Test Item Value Reference Range Comments POC-GLUCOSE METER (BEAKER) 61 mg/dL 70-110 Will Repeat Test/TESTED AT (test stnc=4239) [place] [address] POCT-GLUCOSE [id number] 12:18:00 Test Item Value Reference Range Comments POC-GLUCOSE METER (BEAKER) 54 mg/dL 70-110 Notified JORDNO STAPLETON/TESTED AT [facility] (test cjnh=5689) [address] [place], [place] [address] POCT-GLUCOSE [id number] 09:59:00 Test Item Value Reference Range Comments POC-GLUCOSE METER (BEAKER) 173 mg/dL 70-110 TESTED AT [address] (test vool=1274) [place] [address] BUN AND [id number] 05:43:00 Test Item Value Reference Range Comments BLOOD UREA NITROGEN 14 mg/dL 7-21 (BEAKER) (test yata=402) CREATININE (BEAKER) (test 0.71 mg/dL 0.57-1.25 fvbc=881) EGFR (BEAKER) (test 122 mL/min/1.73 sq m ESTIMATED GFR IS NOT chlz=7612) ACCURATE CREATININE CLEARANCE IN PREDICTING GLOMERULAR FILTRATION RATE. ESTIMATED GFR IS NOT APPLICABLE FOR DIALYSIS PATIENTS. POCT-GLUCOSE [id number] 22:13:00 Test Item Value Reference Range Comments POC-GLUCOSE METER (BEAKER) 171 mg/dL 70-110 TESTED AT [address] (test tkkr=1664) [place] [address] POCT-GLUCOSE [id number] 17:15:00 Test Item Value Reference Range Comments POC-GLUCOSE METER (BEAKER) 163 mg/dL 70-110 TESTED AT [address] (test xcus=4936) [place] [address] SPIN/CONCENTRATION [id number] 15:40:00 Test Item Value Reference Range Comments CONCENTRATION CHARGED (BEAKER) (test jnui=7326) Done POCT-GLUCOSE [id number] 12:57:00 Test Item Value Reference Range Comments POC-GLUCOSE METER (BEAKER) 210 mg/dL 70-110 TESTED AT [address] (test wyxv=6735) [place] [address] POCT-GLUCOSE [id number] 08:13:00 Test Item Value Reference Range Comments POC-GLUCOSE METER (BEAKER) 288 mg/dL 70-110 TESTED AT [address] (test tjiz=4908) [place] [address] BUN AND [id number] 04:09:00 Test Item Value Reference Range Comments BLOOD UREA NITROGEN 13 mg/dL 7-21 (BEAKER) (test quqf=874) CREATININE (BEAKER) (test 0.70 mg/dL 0.57-1.25 bihs=758) EGFR (BEAKER) (test 124 mL/min/1.73 sq m ESTIMATED GFR IS NOT fyqp=3869) ACCURATE CREATININE CLEARANCE IN PREDICTING GLOMERULAR FILTRATION RATE. ESTIMATED GFR IS NOT APPLICABLE FOR DIALYSIS PATIENTS. POCT-GLUCOSE [id number] 21:28:00 Test Item Value Reference Range Comments POC-GLUCOSE METER (BEAKER) 307 mg/dL 70-110 TESTED AT [address] (test nwbn=8231) [place] [address] RESPIRATORY PANEL [id number] 19:09:00 Test Item Value Reference Range Comments HUMAN METAPNEUMOVIRUS Not detected Not detected, (BEAKER) (test xwgl=3315) Inconclusive RHINOVIRUS (BEAKER) (test Not detected Not detected, wusn=7766) Inconclusive INFLUENZA A (BEAKER) (test Not detected Not detected, jkqw=2472) Inconclusive INFLUENZA A SUBTYPE H1 Not detected Not detected, (BEAKER) (test mgyi=9502) Inconclusive INFLUENZA A SUBTYPE H3 Not detected Not detected, (BEAKER) (test qnym=0235) Inconclusive INFLUENZA A SUBTYPE H1-2009 Not detected Not detected, (BEAKER) (test znhq=0314) Inconclusive INFLUENZA B (BEAKER) (test Not detected Not detected, nqch=4508) Inconclusive RESPIRATORY SYNCYTIAL VIRUS Not detected Not detected, (BEAKER) (test rtmz=0773) Inconclusive PARAINFLUENZA VIRUS 1 Not detected Not detected, (BEAKER) (test qejz=2978) Inconclusive PARAINFLUENZA VIRUS 2 Not detected Not detected, (BEAKER) (test duau=5437) Inconclusive PARAINFLUENZA VIRUS 3 Not detected Not detected, (BEAKER) (test dotn=4723) Inconclusive PARAINFLUENZA VIRUS 4 Not detected Not detected, (BEAKER) (test olfe=0425) Inconclusive ADENOVIRUS (BEAKER) (test Not detected Not detected, ptur=3129) Inconclusive CORONAVIRUS 229E (BEAKER) Not detected Not detected, (test yfqc=2558) Inconclusive CORONAVIRUS HKU1 (BEAKER) Detected Not detected, FilmArray RP assay for (test xxga=3804) Inconclusive Coronavirus OC43 may cross react with some isolates of Coronavirus HKU1. A dual positive may be due to cross reactivity or may indicate a co-infection. CORONAVIRUS NL63 (BEAKER) Not detected Not detected, (test ntqj=5738) Inconclusive CORONAVIRUS OC43 (BEAKER) Not detected Not detected, FilmArray RP assay for (test jher=7254) Inconclusive Coronavirus OC43 may cross react with some isolates of Coronavirus HKU1. A dual positive may be due to cross reactivity or may indicate a co-infection. BORDETELLA PERTUSSIS Not detected Not detected, (BEAKER) (test qscp=3317) Inconclusive CHLAMYDOPHILA PNEUMONIAE Not detected Not detected, (BEAKER) (test nvuz=9362) Inconclusive MYCOPLASMA PNEUMONIAE Not detected Not detected, (BEAKER) (test brem=6368) Inconclusive POCT-GLUCOSE [id number] 17:30:00 Test Item Value Reference Range Comments POC-GLUCOSE METER (BEAKER) 322 mg/dL 70-110 Will Repeat Test/TESTED AT (test uqpu=6088) [facility] [address] [facility] [address] URINALYSIS W/ [id number] 15:33:00 Test Item Value Reference Range Comments COLOR (BEAKER) (test liqj=884) Light Yellow CLARITY (BEAKER) (test wccc=108) Clear SPECIFIC GRAVITY UA (BEAKER) (test fgtb=467) 1.022 1.001-1.035 PH UA (BEAKER) (test fpss=777) 7.0 5.0-8.0 PROTEIN UA (BEAKER) (test cmrg=023) Negative Negative GLUCOSE UA (BEAKER) (test uvwq=542) >1000 mg/dL Negative KETONES UA (BEAKER) (test qivn=811) Negative Negative BILIRUBIN UA (BEAKER) (test slvu=076) Negative Negative BLOOD UA (BEAKER) (test uywg=292) Negative Negative NITRITE UA (BEAKER) (test qrzq=718) Negative Negative LEUKOCYTE ESTERASE UA (BEAKER) (test gbuw=767) Negative Negative UROBILINOGEN UA (BEAKER) (test fjtk=515) 0.2 mg/dL 0.2-1.0 RBC UA (BEAKER) (test glos=841) 1 /HPF WBC UA (BEAKER) (test chov=091) < /HPF BACTERIA (BEAKER) (test xewv=552) Rare SQUAMOUS EPITHELIAL (BEAKER) (test aoej=367) 1 /HPF SOURCE(BEAKER) (test dmyz=4205) Urine, Voided POCT-GLUCOSE [id number] 13:21:00 Test Item Value Reference Range Comments POC-GLUCOSE METER (BEAKER) 492 mg/dL 70-110 Will Repeat Test/TESTED AT (test nett=2717) [address] [address] POCT-GLUCOSE [id number] 13:15:00 Test Item Value Reference Range Comments POC-GLUCOSE METER (BEAKER) > mg/dL 70-110 OUTSIDE MEASURING RANGEWill (test elis=8647) Repeat Test/TESTED AT [address] [address] HEMOGLOBIN [id number] 08:57:00 Test Item Value Reference Range Comments HEMOGLOBIN A1C (BEAKER) (test tkdu=581) 13.8 % 4.3-6.1 HEMOGLOBIN [id number] 08:57:00 Test Item Value Reference Range Comments HEMOGLOBIN A1C (BEAKER) (test tfzz=221) 13.7 % 4.3-6.1 POCT-GLUCOSE [id number] 07:57:00 Test Item Value Reference Range Comments POC-GLUCOSE METER (BEAKER) 471 mg/dL 70-110 Will Repeat Test/TESTED AT (test tdzb=9285) [address] [address] COMPREHENSIVE METABOLIC [id number] 03:12:00 Test Item Value Reference Range Comments TOTAL PROTEIN (BEAKER) 7.4 gm/dL 6.0-8.3 (test ndnx=175) ALBUMIN (BEAKER) (test 3.0 g/dL 3.5-5.0 vowo=6955) ALKALINE PHOSPHATASE 119 U/L 40-150 (BEAKER) (test zeps=522) BILIRUBIN TOTAL (BEAKER) < mg/dL 0.2-1.2 (test pwiw=783) SODIUM (BEAKER) (test 135 meq/L 136-145 thgt=291) POTASSIUM (BEAKER) (test 4.4 meq/L 3.5-5.1 dzir=135) CHLORIDE (BEAKER) (test 101 meq/L 98-107 ockr=597) CO2 (BEAKER) (test 28 meq/L 22-29 cefn=669) BLOOD UREA NITROGEN 8 mg/dL 7-21 (BEAKER) (test sjhz=621) CREATININE (BEAKER) (test 0.73 mg/dL 0.57-1.25 ssct=950) GLUCOSE RANDOM (BEAKER) 119 mg/dL 70-105 (test rfgp=072) CALCIUM (BEAKER) (test 9.0 mg/dL 8.4-10.2 zfyi=265) AST (SGOT) (BEAKER) (test 18 U/L 5-34 qcui=824) ALT (SGPT) (BEAKER) (test 9 U/L 6-55 apwa=242) EGFR (BEAKER) (test 118 mL/min/1.73 sq ESTIMATED GFR IS NOT mcha=7557) m ACCURATE CREATININE CLEARANCE IN PREDICTING GLOMERULAR FILTRATION RATE. ESTIMATED GFR IS NOT APPLICABLE FOR DIALYSIS PATIENTS. BUN AND [id number] 03:11:00 Test Item Value Reference Range Comments BLOOD UREA NITROGEN 7 mg/dL 7-21 (BEAKER) (test lskr=599) CREATININE (BEAKER) (test 0.72 mg/dL 0.57-1.25 cssc=032) EGFR (BEAKER) (test 120 mL/min/1.73 sq m ESTIMATED GFR IS NOT xjxs=1584) ACCURATE CREATININE CLEARANCE IN PREDICTING GLOMERULAR FILTRATION RATE. ESTIMATED GFR IS NOT APPLICABLE FOR DIALYSIS PATIENTS. GAMMA GLUTAMYL TRANSFERASE (GGT)2017-11-30 03:11:00 Test Item Value Reference Range Comments GAMMA GLUTAMYL TRANSFERASE (BEAKER) (test krtg=325) 19 U/L 9-64 [id number] 03:10:00 Test Item Value Reference Range Comments PHOSPHORUS (BEAKER) (test sifx=581) 3.6 mg/dL 2.3-4.7 [id number] 03:05:00 Test Item Value Reference Range Comments MAGNESIUM (BEAKER) (test tdoh=820) 1.6 mg/dL 1.6-2.6 CBC W/PLT COUNT & AUTO [id number] 02:46:00 Test Item Value Reference Range Comments WHITE BLOOD CELL COUNT (BEAKER) (test dzre=764) 9.5 K/ L 3.5-10.5 RED BLOOD CELL COUNT (BEAKER) (test yelf=496) 4.27 M/ L 3.93-5.22 HEMOGLOBIN (BEAKER) (test eesk=941) 11.3 GM/DL 11.2-15.7 HEMATOCRIT (BEAKER) (test mefl=620) 36.4 % 34.1-44.9 MEAN CORPUSCULAR VOLUME (BEAKER) (test jofv=443) 85.2 fL 79.4-94.8 MEAN CORPUSCULAR HEMOGLOBIN (BEAKER) (test 26.5 pg 25.6-32.2 uqob=754) MEAN CORPUSCULAR HEMOGLOBIN CONC (BEAKER) (test 31.0 GM/DL 32.2-35.5 rvch=515) RED CELL DISTRIBUTION WIDTH (BEAKER) (test 15.0 % 11.7-14.4 zgsq=115) PLATELET COUNT (BEAKER) (test boyl=456) 314 K/CU MM 150-450 MEAN PLATELET VOLUME (BEAKER) (test ggyw=191) 11.9 fL 9.4-12.3 NUCLEATED RED BLOOD CELLS (BEAKER) (test 0 /100 WBC 0-0 nmnj=451) NEUTROPHILS RELATIVE PERCENT (BEAKER) (test 88 % cyyz=542) LYMPHOCYTES RELATIVE PERCENT (BEAKER) (test 8 % hnco=430) MONOCYTES RELATIVE PERCENT (BEAKER) (test 3 % ickb=885) EOSINOPHILS RELATIVE PERCENT (BEAKER) (test 1 % ckpv=153) BASOPHILS RELATIVE PERCENT (BEAKER) (test 0 % okqt=245) NEUTROPHILS ABSOLUTE COUNT (BEAKER) (test 8.37 K/ L 1.56-6.13 hwpv=413) LYMPHOCYTES ABSOLUTE COUNT (BEAKER) (test 0.74 K/ L 1.18-3.74 evul=679) MONOCYTES ABSOLUTE COUNT (BEAKER) (test 0.29 K/ L 0.24-0.36 kwbl=970) EOSINOPHILS ABSOLUTE COUNT (BEAKER) (test 0.07 K/ L 0.04-0.36 skmj=345) BASOPHILS ABSOLUTE COUNT (BEAKER) (test 0.02 K/ L 0.01-0.08 zwfb=316) IMMATURE GRANULOCYTES-RELATIVE PERCENT (BEAKER) 0 % 0-1 (test fsvh=0599) RAD, CHEST, 2 [id number] 22:13:00Reason for exam:->Cystic FibrosisShould this be performed at the bedside?->NoFINAL REPORT HISTORY : Cystic Fibrosis. Comparison: 09/24/2017 Comment: Two views of the chest, PA and lateral, were obtained. The cardiac silhouette is within normal limits. No pneumothorax or pleural effusion is seen. There is a right- sided Port-A-Cath in place. There is bronchiectasis with reticular nodular and patchy airspace disease bilaterally. The airspace disease has slightly increased in the midlungs bilaterally. The constellation of findings are suggestive of cystic fibrosis. Given the increased opacities bilaterally, however, superimposed pneumonitis cannot be excluded. Signed: Lisa Rider Verified Date/Time: 11/29/2017 22:13:03 Reading Location: [address] Consult Reading Room POCT-GLUCOSE [id number] 21:13:00 Test Item Value Reference Range Comments POC-GLUCOSE METER (BEAKER) > mg/dL 70-110 OUTSIDE MEASURING RANGETESTED AT (test tciz=4591) [address] [address] POCT-GLUCOSE [id number] 18:02:00 Test Item Value Reference Range Comments POC-GLUCOSE METER (BEAKER) 292 mg/dL 70-110 TESTED AT [address] (test ggce=6513) [facility] [address] [id number] 08:10:00 Test Item Value Reference Range Comments MAGNESIUM (BEAKER) (test ckqx=859) 1.4 mg/dL 1.6-2.6 [id number] 08:10:00 Test Item Value Reference Range Comments PHOSPHORUS (BEAKER) (test lnas=265) 3.3 mg/dL 2.3-4.7 BASIC METABOLIC [id number] 07:41:00 Test Item Value Reference Range Comments SODIUM (BEAKER) (test 137 meq/L 136-145 aoky=570) POTASSIUM (BEAKER) (test 3.1 meq/L 3.5-5.1 xfsc=968) CHLORIDE (BEAKER) (test 103 meq/L 98-107 dvrj=765) CO2 (BEAKER) (test 26 meq/L 22-29 baay=160) BLOOD UREA NITROGEN 3 mg/dL 7-21 (BEAKER) (test foor=273) CREATININE (BEAKER) (test 0.60 mg/dL 0.57-1.25 jczv=870) GLUCOSE RANDOM (BEAKER) 124 mg/dL 70-105 (test vgrr=813) CALCIUM (BEAKER) (test 9.4 mg/dL 8.4-10.2 hqhm=999) EGFR (BEAKER) (test 148 mL/min/1.73 sq m ESTIMATED GFR IS NOT jfra=9800) ACCURATE CREATININE CLEARANCE IN PREDICTING GLOMERULAR FILTRATION RATE. ESTIMATED GFR IS NOT APPLICABLE FOR DIALYSIS PATIENTS. KETONE, [id number] 07:13:00 Test Item Value Reference Range Comments KETONES, BLOOD (BEAKER) (test bbqq=6333) 0.0 mmol/L <0.4 BLOOD GAS, [id number] 07:10:00 Test Item Value Reference Range Comments PH VENOUS (BEAKER) (test zoif=282) 7.42 7.32-7.42 PCO2 VENOUS (BEAKER) (test bsvy=689) 47 mmHg 41-51 PO2 VENOUS (BEAKER) (test veyg=459) 57 mmHg 25-40 O2 SATURATION VENOUS (BEAKER) (test jypo=212) 90.2 % 40.0-70.0 HCO3 VENOUS (BEAKER) (test qryb=146) 30 mmol/L 21-29 BASE EXCESS VENOUS (BEAKER) (test xfze=962) 4.9 mmol/L -2.0-3.0 PATIENT TEMPERATURE (BEAKER) (test ptnd=6161) 37.0 C FIO2 (BEAKER) (test yyxt=6844) 21.0 % POCT-GLUCOSE [id number] 06:51:00 Test Item Value Reference Range Comments POC-GLUCOSE METER (BEAKER) 134 mg/dL 70-[address] [facility] [address] [facility] (test wtjc=2663) [facility] [address] BASIC METABOLIC [id number] 06:32:00 Test Item Value Reference Range Comments SODIUM (BEAKER) (test 129 meq/L 136-145 miww=135) POTASSIUM (BEAKER) (test 3.5 meq/L 3.5-5.1 elna=106) CHLORIDE (BEAKER) (test 97 meq/L 98-107 qmfk=897) CO2 (BEAKER) (test 18 meq/L 22-29 ocry=768) BLOOD UREA NITROGEN 4 mg/dL 7-21 (BEAKER) (test wdpf=912) CREATININE (BEAKER) (test 1.04 mg/dL 0.57-1.25 ptqo=797) GLUCOSE RANDOM (BEAKER) 753 mg/dL 70-105 (test rlws=427) CALCIUM (BEAKER) (test 8.9 mg/dL 8.4-10.2 rkwm=502) EGFR (BEAKER) (test 78 mL/min/1.73 sq m ESTIMATED GFR IS NOT yqrn=9601) ACCURATE CREATININE CLEARANCE IN PREDICTING GLOMERULAR FILTRATION RATE. ESTIMATED GFR IS NOT APPLICABLE FOR DIALYSIS PATIENTS. URINALYSIS W/ REFLEX URINE [id number] 06:19:00 Test Item Value Reference Range Comments COLOR (BEAKER) (test nhgz=416) Colorless CLARITY (BEAKER) (test jcmk=492) Clear SPECIFIC GRAVITY UA (BEAKER) (test gddy=944) 1.009 1.001-1.035 PH UA (BEAKER) (test zeek=945) 6.0 5.0-8.0 PROTEIN UA (BEAKER) (test aqos=740) Negative Negative GLUCOSE UA (BEAKER) (test fhsr=464) >1000 mg/dL Negative KETONES UA (BEAKER) (test wvia=439) Negative Negative BILIRUBIN UA (BEAKER) (test jehj=746) Negative Negative BLOOD UA (BEAKER) (test qjgc=926) Small Negative NITRITE UA (BEAKER) (test otfu=757) Negative Negative LEUKOCYTE ESTERASE UA (BEAKER) (test vwar=612) Negative Negative UROBILINOGEN UA (BEAKER) (test fjck=159) 0.2 mg/dL 0.2-1.0 RBC UA (BEAKER) (test fzpf=421) < /HPF WBC UA (BEAKER) (test pxdt=631) 1 /HPF BACTERIA (BEAKER) (test ldgj=058) Rare SQUAMOUS EPITHELIAL (BEAKER) (test xgpe=316) 4 /HPF AMORPHOUS CRYSTALS (BEAKER) (test rmvj=1257) Rare SOURCE(BEAKER) (test pkqt=4621) SCREEN, [id number] 06:07:00 Test Item Value Reference Range Comments TEST URINE (BEAKER) (test mtnn=579) Negative [id number] 05:41:00 Test Item Value Reference Range Comments LIPASE (BEAKER) (test ycvt=109) < U/L 8-78 HEPATIC FUNCTION [id number] 05:40:00 Test Item Value Reference Range Comments TOTAL PROTEIN (BEAKER) (test sawc=497) 7.0 gm/dL 6.0-8.3 ALBUMIN (BEAKER) (test nrwj=6854) 2.8 g/dL 3.5-5.0 BILIRUBIN TOTAL (BEAKER) (test dbkn=574) < mg/dL 0.2-1.2 BILIRUBIN DIRECT (BEAKER) (test ykro=215) 0.1 mg/dL 0.1-0.5 ALKALINE PHOSPHATASE (BEAKER) (test rloj=799) 122 U/L 40-150 AST (SGOT) (BEAKER) (test jsxm=220) 9 U/L 5-34 ALT (SGPT) (BEAKER) (test ivmv=107) 7 U/L 6-55 CBC W/PLT COUNT & AUTO [id number] 05:10:00 Test Item Value Reference Range Comments WHITE BLOOD CELL COUNT (BEAKER) (test hwry=451) 5.9 K/ L 3.5-10.5 RED BLOOD CELL COUNT (BEAKER) (test npod=811) 4.44 M/ L 3.93-5.22 HEMOGLOBIN (BEAKER) (test csnq=064) 11.8 GM/DL 11.2-15.7 HEMATOCRIT (BEAKER) (test wgjb=043) 39.2 % 34.1-44.9 MEAN CORPUSCULAR VOLUME (BEAKER) (test kuyd=342) 88.3 fL 79.4-94.8 MEAN CORPUSCULAR HEMOGLOBIN (BEAKER) (test 26.6 pg 25.6-32.2 luil=928) MEAN CORPUSCULAR HEMOGLOBIN CONC (BEAKER) (test 30.1 GM/DL 32.2-35.5 guio=594) RED CELL DISTRIBUTION WIDTH (BEAKER) (test 14.9 % 11.7-14.4 rlon=913) PLATELET COUNT (BEAKER) (test rvhd=745) 294 K/CU MM 150-450 MEAN PLATELET VOLUME (BEAKER) (test gwwa=179) 11.9 fL 9.4-12.3 NUCLEATED RED BLOOD CELLS (BEAKER) (test 0 /100 WBC 0-0 upgb=689) NEUTROPHILS RELATIVE PERCENT (BEAKER) (test 67 % viik=113) LYMPHOCYTES RELATIVE PERCENT (BEAKER) (test 26 % hxhd=155) MONOCYTES RELATIVE PERCENT (BEAKER) (test 5 % qvyf=272) EOSINOPHILS RELATIVE PERCENT (BEAKER) (test 2 % mjix=095) BASOPHILS RELATIVE PERCENT (BEAKER) (test 0 % wgpv=585) NEUTROPHILS ABSOLUTE COUNT (BEAKER) (test 3.99 K/ L 1.56-6.13 pxfl=017) LYMPHOCYTES ABSOLUTE COUNT (BEAKER) (test 1.51 K/ L 1.18-3.74 wirs=048) MONOCYTES ABSOLUTE COUNT (BEAKER) (test 0.29 K/ L 0.24-0.36 dolg=827) EOSINOPHILS ABSOLUTE COUNT (BEAKER) (test 0.11 K/ L 0.04-0.36 bcbh=254) BASOPHILS ABSOLUTE COUNT (BEAKER) (test 0.02 K/ L 0.01-0.08 omon=413) IMMATURE GRANULOCYTES-RELATIVE PERCENT (BEAKER) 0 % 0-1 (test nzat=4977) AFB CULTURE + [id number] 12:29:00 Test Item Value Reference Range Comments CULTURE (BEAKER) (test No acid-fast bacilli isolated mnmu=2357) in 42 days AFB SMEAR (BEAKER) (test No acid fast bacilli seen kbmy=355) FUNGUS CULTURE + [id number] 09:42:00 Test Item Value Reference Range Comments CULTURE (BEAKER) (test <1+ Clau dubliniensis youe=9735) FUNGUS SMEAR (BEAKER) <1+ budding yeast (test lxac=2322) See smear results.POCT-GLUCOSE [id number] 14:27:00 Test Item Value Reference Range Comments POC-GLUCOSE METER (BEAKER) 255 mg/dL 70-110 TESTED AT [address] (test kuqz=5658) [place] [address] POCT-GLUCOSE [id number] 11:59:00 Test Item Value Reference Range Comments POC-GLUCOSE METER (BEAKER) 157 mg/dL 70-110 TESTED AT [address] (test iijq=2487) [place] [address] POCT-GLUCOSE [id number] 08:51:00 Test Item Value Reference Range Comments POC-GLUCOSE METER (BEAKER) 57 mg/dL 70-110 Notified JORDON STAPLETON/TESTED AT [facility] (test ckmk=9700) [address] [place] [address] [id number] 05:55:00 Test Item Value Reference Range Comments BLOOD UREA NITROGEN (BEAKER) (test awru=440) 18 mg/dL 7-21 [id number] 05:55:00 Test Item Value Reference Range Comments CREATININE (BEAKER) (test 0.69 mg/dL 0.57-1.25 cytv=441) EGFR (BEAKER) (test 126 mL/min/1.73 sq m ESTIMATED GFR IS NOT nrdx=9180) ACCURATE CREATININE CLEARANCE IN PREDICTING GLOMERULAR FILTRATION RATE. ESTIMATED GFR IS NOT APPLICABLE FOR DIALYSIS PATIENTS. POCT-GLUCOSE [id number] 21:24:00 Test Item Value Reference Range Comments POC-GLUCOSE METER (BEAKER) 139 mg/dL 70-110 TESTED AT [address] (test beua=0560) [place] [address] POCT-GLUCOSE [id number] 17:18:00 Test Item Value Reference Range Comments POC-GLUCOSE METER (BEAKER) 148 mg/dL 70-110 TESTED AT [address] (test otkf=9567) [place] [address] POCT-GLUCOSE [id number] 12:36:00 Test Item Value Reference Range Comments POC-GLUCOSE METER (BEAKER) 104 mg/dL 70-[address] [facility] [address] (test jatj=6540) [facility] [address] CF RESPIRATORY [id number] 11:18:00 Test Item Value Reference Range Comments CULTURE ([employer]) (test izdh=2952) Amikacin (test code=1) Susceptible 0-16 , Resistant <0 or >16 Aztreonam (test Susceptible 0-8 , code=32) Resistant <0 or >8 Cefepime (test code=51) Susceptible 0-8 , Resistant <0 or >8 Ceftazidime (test Susceptible 0-8 , code=27) Resistant <0 or >8 Ciprofloxacin (test Susceptible 0-1 , code=7) Resistant <0 or >1 Doripenem (test Susceptible 0-2 , djux=791) Resistant <0 or >2 Gentamicin (test Susceptible 0-4 , code=18) Resistant <0 or >4 Imipenem (test code=19) Susceptible 0-2 , Resistant <0 or >2 Levofloxacin (test Susceptible 0-2 , code=22) Resistant <0 or >2 Meropenem (test Susceptible 0-2 , code=34) Resistant <0 or >2 Piperacillin (test Susceptible 0-16 , code=24) Resistant <0 or >16 Piperacillin + Susceptible 0-16 , Tazobactam (test Resistant <0 or >16 code=29) Tobramycin (test Susceptible 0-4 , code=25) Resistant <0 or >4 CULTURE ([employer]) (test PSEUDOMONAS 4+ Pseudomonas brfj=8276) AERUGINOSA aeruginosa (MUCOID-PHENOTYPE) Amikacin (test code=1) Susceptible 0-16 , Resistant <0 or >16 Aztreonam (test Susceptible 0-8 , code=32) Resistant <0 or >8 Cefepime (test code=51) Susceptible 0-8 , Resistant <0 or >8 Ceftazidime (test Susceptible 0-8 , code=27) Resistant <0 or >8 Ciprofloxacin (test Susceptible 0-1 , code=7) Resistant <0 or >1 Doripenem (test Susceptible 0-2 , dagn=734) Resistant <0 or >2 Gentamicin (test Susceptible 0-4 , code=18) Resistant <0 or >4 Imipenem (test code=19) Susceptible 0-2 , Resistant <0 or >2 Levofloxacin (test Susceptible 0-2 , code=22) Resistant <0 or >2 Meropenem (test Susceptible 0-2 , code=34) Resistant <0 or >2 Piperacillin (test Susceptible 0-16 , code=24) Resistant <0 or >16 Piperacillin + Susceptible 0-16 , Tazobactam (test Resistant <0 or >16 code=29) Tobramycin (test Susceptible 0-4 , code=25) Resistant <0 or >4 CULTURE (BEAKER) (test 4+ Pseudomonas fpjv=5717) aeruginosa (Mucoid-phenotype) CULTURE (BEAKER) (test 1+ Streptococcus not wwsq=8121) group A beta hemolytic 4+ Normal respiratory derick presentPOCT-GLUCOSE [id number] 08:50:00 Test Item Value Reference Range Comments POC-GLUCOSE METER (BEAKER) 74 mg/dL 70-110 TESTED AT [address] (test koau=2695) [place] [address] [id number] 06:55:00 Test Item Value Reference Range Comments BLOOD UREA NITROGEN (BEAKER) (test jlhz=511) 25 mg/dL 7-21 [id number] 06:55:00 Test Item Value Reference Range Comments CREATININE (BEAKER) (test 0.77 mg/dL 0.57-1.25 bpgs=873) EGFR (BEAKER) (test 111 mL/min/1.73 sq m ESTIMATED GFR IS NOT lpqb=2078) ACCURATE CREATININE CLEARANCE IN PREDICTING GLOMERULAR FILTRATION RATE. ESTIMATED GFR IS NOT APPLICABLE FOR DIALYSIS PATIENTS. POCT-GLUCOSE [id number] 21:23:00 Test Item Value Reference Range Comments POC-GLUCOSE METER (BEAKER) 226 mg/dL 70-110 TESTED AT [address] (test afmf=2170) [place] [address] POCT-GLUCOSE [id number] 17:48:00 Test Item Value Reference Range Comments POC-GLUCOSE METER (BEAKER) 207 mg/dL 70-110 TESTED AT [address] (test xdru=8845) [place] [address] POCT-GLUCOSE [id number] 13:40:00 Test Item Value Reference Range Comments POC-GLUCOSE METER (BEAKER) 63 mg/dL 70-110 TESTED AT [address] (test fpug=1291) [place] [address] POCT-GLUCOSE [id number] 12:57:00 Test Item Value Reference Range Comments POC-GLUCOSE METER (BEAKER) 42 mg/dL 70-110 Notified JORDON STAPLETON/TESTED AT [facility] (test ssik=0716) [address] [place] [address] POCT-GLUCOSE [id number] 08:52:00 Test Item Value Reference Range Comments POC-GLUCOSE METER (BEAKER) 191 mg/dL 70-110 TESTED AT [address] (test iwac=5930) [place] [address] [id number] 07:08:00 Test Item Value Reference Range Comments BLOOD UREA NITROGEN (BEAKER) (test odpt=203) 18 mg/dL 7-21 [id number] 07:08:00 Test Item Value Reference Range Comments CREATININE (BEAKER) (test 0.75 mg/dL 0.57-1.25 tvmg=881) EGFR (BEAKER) (test 114 mL/min/1.73 sq m ESTIMATED GFR IS NOT sbfm=1938) ACCURATE CREATININE CLEARANCE IN PREDICTING GLOMERULAR FILTRATION RATE. ESTIMATED GFR IS NOT APPLICABLE FOR DIALYSIS PATIENTS. POCT-GLUCOSE [id number] 21:41:00 Test Item Value Reference Range Comments POC-GLUCOSE METER (BEAKER) 361 mg/dL 70-110 TESTED AT [address] (test mqup=3895) [place] [address] POCT-GLUCOSE [id number] 18:53:00 Test Item Value Reference Range Comments POC-GLUCOSE METER (BEAKER) 96 mg/dL 70-110 TESTED AT [address] (test hhom=5204) [place] [address] POCT-GLUCOSE [id number] 18:18:00 Test Item Value Reference Range Comments POC-GLUCOSE METER (BEAKER) 68 mg/dL 70-110 Notified JORDON STAPLETON/TESTED AT [facility] (test dlkp=0824) [address] [place], [place] [address] POCT-GLUCOSE [id number] 13:46:00 Test Item Value Reference Range Comments POC-GLUCOSE METER (BEAKER) 142 mg/dL 70-110 TESTED AT [address] (test edxb=6351) [place] [address] POCT-GLUCOSE [id number] 12:51:00 Test Item Value Reference Range Comments POC-GLUCOSE METER (BEAKER) 49 mg/dL 70-110 Notified JORDON STAPLETON/TESTED AT [facility] (test kdlf=6821) [address] [place] [address] POCT-GLUCOSE [id number] 08:07:00 Test Item Value Reference Range Comments POC-GLUCOSE METER (BEAKER) 144 mg/dL 70-110 TESTED AT [address] (test qlco=0076) [place] [address] [id number] 07:32:00 Test Item Value Reference Range Comments BLOOD UREA NITROGEN (BEAKER) (test hyqb=998) 19 mg/dL 7-21 [id number] 07:32:00 Test Item Value Reference Range Comments CREATININE (BEAKER) (test 0.73 mg/dL 0.57-1.25 veme=131) EGFR (BEAKER) (test 118 mL/min/1.73 sq m ESTIMATED GFR IS NOT kpgq=0698) ACCURATE CREATININE CLEARANCE IN PREDICTING GLOMERULAR FILTRATION RATE. ESTIMATED GFR IS NOT APPLICABLE FOR DIALYSIS PATIENTS. POCT-GLUCOSE [id number] 21:59:00 Test Item Value Reference Range Comments POC-GLUCOSE METER (BEAKER) 211 mg/dL 70-110 TESTED AT [address] (test dtor=8855) [place] [address] POCT-GLUCOSE [id number] 18:20:00 Test Item Value Reference Range Comments POC-GLUCOSE METER (BEAKER) 178 mg/dL 70-110 TESTED AT [address] (test mzpj=2515) [place] [address] [id number] 15:05:00 Test Item Value Reference Range Comments BLOOD UREA NITROGEN (BEAKER) (test ptil=775) 15 mg/dL 7-21 [id number] 15:05:00 Test Item Value Reference Range Comments CREATININE (BEAKER) (test 0.86 mg/dL 0.57-1.25 Specimen slightly abfq=802) hemolyzed EGFR (BEAKER) (test 97 mL/min/1.73 sq m ESTIMATED GFR IS NOT optt=2388) ACCURATE CREATININE CLEARANCE IN PREDICTING GLOMERULAR FILTRATION RATE. ESTIMATED GFR IS NOT APPLICABLE FOR DIALYSIS PATIENTS. POCT-GLUCOSE [id number] 12:02:00 Test Item Value Reference Range Comments POC-GLUCOSE METER (BEAKER) 357 mg/dL 70-110 TESTED AT [address] (test oyfl=7027) [facility] [address] RAD, CHEST, 2 [id number] 10:11:00Reason for exam:->Cystic FibrosisShould this be performed at the bedside?->NoFINAL REPORT Chest x-ray, PA and lateral views Clinical History: Cystic Fibrosis Comparison: June 18, 2017 Findings: Cardiomediastinal contours are normal. Right-sided Port-A-Cath is in stable position. Scattered foci of reticular nodular opacities and bronchiectatic changesare grossly unchanged. There is a small band of scarring/atelectasis in the left upper lung. No pneumothorax, or significant pleural effusion. Osseous structures are intact. Impression: Stable findingsof cystic fibrosis. Signed: Everardo Castellanos Verified Date/Time: 09/24/2017 10:11:13 Reading Location: [facility] Radiology Reading Room Electronically signed by: EVERARDO CASTELLANOS M.D. on 09/24 10:11 AMPOCT-GLUCOSE [id number] 08:09:00 Test Item Value Reference Range Comments POC-GLUCOSE METER (BEAKER) 331 mg/dL 70-110 TESTED AT [address] (test czxt=5179) [place] [address] POCT-GLUCOSE [id number] 21:28:00 Test Item Value Reference Range Comments POC-GLUCOSE METER (BEAKER) 473 mg/dL 70-110 TESTED AT [address] (test xhtz=1320) [place] [address] POCT-GLUCOSE [id number] 18:31:00 Test Item Value Reference Range Comments POC-GLUCOSE METER (BEAKER) 444 mg/dL 70-110 TESTED AT [address] (test xmgq=9274) [place] [address] HEMOGLOBIN [id number] 17:51:00 Test Item Value Reference Range Comments HEMOGLOBIN A1C (BEAKER) (test dypn=347) 13.7 % 4.3-6.1 POCT-GLUCOSE [id number] 17:16:00 Test Item Value Reference Range Comments POC-GLUCOSE METER (BEAKER) 496 mg/dL 70-110 Notified JORDON STAPLETON/TESTED AT [facility] (test vldz=8075) [address] [place], [place] [address] [facility] [address] SPIN/CONCENTRATION [id number] 12:37:00 Test Item Value Reference Range Comments CONCENTRATION CHARGED (BEAKER) (test urer=1634) Done POCT-GLUCOSE [id number] 12:28:00 Test Item Value Reference Range Comments POC-GLUCOSE METER (BEAKER) 492 mg/dL 70-110 Notified JORDON STAPLETON/TESTED AT [facility] (test mlvy=1514) [address] [place] [address] [id number] 07:45:00 Test Item Value Reference Range Comments BLOOD UREA NITROGEN (BEAKER) (test xqdc=686) 10 mg/dL 7-21 [id number] 07:45:00 Test Item Value Reference Range Comments CREATININE (BEAKER) (test 0.76 mg/dL 0.57-1.25 qxqh=214) EGFR (BEAKER) (test 112 mL/min/1.73 sq m ESTIMATED GFR IS NOT lsus=1988) ACCURATE CREATININE CLEARANCE IN PREDICTING GLOMERULAR FILTRATION RATE. ESTIMATED GFR IS NOT APPLICABLE FOR DIALYSIS PATIENTS. POCT-GLUCOSE [id number] 07:00:00 Test Item Value Reference Range Comments POC-GLUCOSE METER (BEAKER) 361 mg/dL 70-110 TESTED AT [place] [address] [address] (test yjje=0195) [facility] [address] [id number] 23:30:00 Test Item Value Reference Range Comments PHOSPHORUS (BEAKER) (test xboz=666) 3.8 mg/dL 2.3-4.7 [id number] 23:30:00 Test Item Value Reference Range Comments MAGNESIUM (BEAKER) (test ojdx=286) 1.5 mg/dL 1.6-2.6 COMPREHENSIVE METABOLIC [id number] 23:30:00 Test Item Value Reference Range Comments TOTAL PROTEIN (BEAKER) 7.3 gm/dL 6.0-8.3 (test toyw=858) ALBUMIN (BEAKER) (test 3.0 g/dL 3.5-5.0 ugid=2247) ALKALINE PHOSPHATASE 136 U/L 40-150 (BEAKER) (test ecdv=761) BILIRUBIN TOTAL (BEAKER) < mg/dL 0.2-1.2 (test wlsr=724) SODIUM (BEAKER) (test 138 meq/L 136-145 ldbx=255) POTASSIUM (BEAKER) (test 4.5 meq/L 3.5-5.1 zllh=866) CHLORIDE (BEAKER) (test 102 meq/L 98-107 pdks=179) CO2 (BEAKER) (test 28 meq/L 22-29 pgpi=372) BLOOD UREA NITROGEN 8 mg/dL 7-21 (BEAKER) (test nlms=242) CREATININE (BEAKER) (test 0.72 mg/dL 0.57-1.25 dugq=172) GLUCOSE RANDOM (BEAKER) 183 mg/dL 70-105 (test hifu=619) CALCIUM (BEAKER) (test 9.0 mg/dL 8.4-10.2 cegx=595) AST (SGOT) (BEAKER) (test 19 U/L 5-34 ldvd=620) ALT (SGPT) (BEAKER) (test 7 U/L 6-55 nwud=450) EGFR (BEAKER) (test 120 mL/min/1.73 sq ESTIMATED GFR IS NOT yziq=6643) m ACCURATE CREATININE CLEARANCE IN PREDICTING GLOMERULAR FILTRATION RATE. ESTIMATED GFR IS NOT APPLICABLE FOR DIALYSIS PATIENTS. GAMMA GLUTAMYL TRANSFERASE (GGT)2017-09-22 23:30:00 Test Item Value Reference Range Comments GAMMA GLUTAMYL TRANSFERASE (BEAKER) (test twat=926) 20 U/L 9-64 CBC W/PLT COUNT & AUTO [id number] 23:06:00 Test Item Value Reference Range Comments WHITE BLOOD CELL COUNT (BEAKER) (test mmny=336) 6.3 K/ L 3.5-10.5 RED BLOOD CELL COUNT (BEAKER) (test uzyc=839) 4.23 M/ L 3.93-5.22 HEMOGLOBIN (BEAKER) (test dopf=423) 10.9 GM/DL 11.2-15.7 HEMATOCRIT (BEAKER) (test tqbz=606) 36.2 % 34.1-44.9 MEAN CORPUSCULAR VOLUME (BEAKER) (test tilw=147) 85.6 fL 79.4-94.8 MEAN CORPUSCULAR HEMOGLOBIN (BEAKER) (test 25.8 pg 25.6-32.2 mzum=336) MEAN CORPUSCULAR HEMOGLOBIN CONC (BEAKER) (test 30.1 GM/DL 32.2-35.5 zvgk=510) RED CELL DISTRIBUTION WIDTH (BEAKER) (test 14.9 % 11.7-14.4 qqfv=611) PLATELET COUNT (BEAKER) (test wkyv=600) 390 K/CU MM 150-450 MEAN PLATELET VOLUME (BEAKER) (test tgzv=837) 11.9 fL 9.4-12.3 NUCLEATED RED BLOOD CELLS (BEAKER) (test 0 /100 WBC 0-0 ctgx=440) NEUTROPHILS RELATIVE PERCENT (BEAKER) (test 55 % lnrh=285) LYMPHOCYTES RELATIVE PERCENT (BEAKER) (test 24 % fgct=017) MONOCYTES RELATIVE PERCENT (BEAKER) (test 12 % qrdl=670) EOSINOPHILS RELATIVE PERCENT (BEAKER) (test 7 % cbsu=040) BASOPHILS RELATIVE PERCENT (BEAKER) (test 1 % wcar=139) NEUTROPHILS ABSOLUTE COUNT (BEAKER) (test 3.48 K/ L 1.56-6.13 fgys=789) LYMPHOCYTES ABSOLUTE COUNT (BEAKER) (test 1.53 K/ L 1.18-3.74 sqry=099) MONOCYTES ABSOLUTE COUNT (BEAKER) (test 0.77 K/ L 0.24-0.36 vayd=219) EOSINOPHILS ABSOLUTE COUNT (BEAKER) (test 0.46 K/ L 0.04-0.36 mogy=860) BASOPHILS ABSOLUTE COUNT (BEAKER) (test 0.04 K/ L 0.01-0.08 yelf=792) IMMATURE GRANULOCYTES-RELATIVE PERCENT (BEAKER) 0 % 0-1 (test cclr=3915) POCT-GLUCOSE [id number] 21:16:00 Test Item Value Reference Range Comments POC-GLUCOSE METER (BEAKER) 168 mg/dL 70-110 TESTED AT [address] (test jxhy=0500) [facility] [id number] AFB CULTURE + [id number] 13:04:00 Test Item Value Reference Range Comments CULTURE (BEAKER) (test No acid-fast bacilli isolated utsf=7928) in 42 days AFB SMEAR (BEAKER) (test No acid fast bacilli seen myuv=112) FUNGUS CULTURE + [id number] 12:05:00 Test Item Value Reference Range Comments CULTURE (BEAKER) (test 2+ Clau dubliniensis whvl=0809) FUNGUS SMEAR (BEAKER) (test No fungi seen yjtp=3749) POCT-GLUCOSE [id number] 17:17:00 Test Item Value Reference Range Comments POC-GLUCOSE METER (BEAKER) 176 mg/dL 70-110 TESTED AT [address] (test rjjp=6198) [facility] [id number] POCT-GLUCOSE [id number] 11:57:00 Test Item Value Reference Range Comments POC-GLUCOSE METER (BEAKER) 392 mg/dL 70-110 Notified JORDON STAPLETON/TESTED AT [facility] (test sqoh=5966) [address] [place] [id number] POCT-GLUCOSE [id number] 08:53:00 Test Item Value Reference Range Comments POC-GLUCOSE METER (BEAKER) 226 mg/dL 70-110 TESTED AT [address] (test rzlj=8879) [facility] [address] POCT-GLUCOSE [id number] 08:53:00 Test Item Value Reference Range Comments POC-GLUCOSE METER (BEAKER) 67 mg/dL 70-110 TESTED AT [address] (test obfg=4774) [facility] [address] BUN AND [id number] 07:15:00 Test Item Value Reference Range Comments BLOOD UREA NITROGEN 20 mg/dL 7-21 (BEAKER) (test jlxl=882) CREATININE (BEAKER) (test 0.64 mg/dL 0.57-1.25 hons=496) EGFR (BEAKER) (test 138 mL/min/1.73 sq m ESTIMATED GFR IS NOT tyvg=0782) ACCURATE CREATININE CLEARANCE IN PREDICTING GLOMERULAR FILTRATION RATE. ESTIMATED GFR IS NOT APPLICABLE FOR DIALYSIS PATIENTS. BASIC METABOLIC [id number] 07:15:00 Test Item Value Reference Range Comments SODIUM (BEAKER) (test 139 meq/L 136-145 jguf=762) POTASSIUM (BEAKER) (test 4.8 meq/L 3.5-5.1 kmjd=150) CHLORIDE (BEAKER) (test 103 meq/L 98-107 jbjg=254) CO2 (BEAKER) (test 28 meq/L 22-29 rith=729) BLOOD UREA NITROGEN 20 mg/dL 7-21 (BEAKER) (test urwj=261) CREATININE (BEAKER) (test 0.64 mg/dL 0.57-1.25 mnlf=078) GLUCOSE RANDOM (BEAKER) 82 mg/dL 70-105 (test znly=366) CALCIUM (BEAKER) (test 9.0 mg/dL 8.4-10.2 jnph=893) EGFR (BEAKER) (test 138 mL/min/1.73 sq m ESTIMATED GFR IS NOT pxtz=9590) ACCURATE CREATININE CLEARANCE IN PREDICTING GLOMERULAR FILTRATION RATE. ESTIMATED GFR IS NOT APPLICABLE FOR DIALYSIS PATIENTS. CF RESPIRATORY [id number] 03:54:00 Test Item Value Reference Range Comments CULTURE (BEAKER) (test 4+ Pseudomonas aeruginosa gpkf=0805) CULTURE (BEAKER) (test PSEUDOMONAS 4+ Pseudomonas rgce=3830) AERUGINOSA aeruginosamucoid colony typeof a third typeThis is an appended report. These organism results have been appended to a previously final verified report. Amikacin (test code=1) Aztreonam (test code=32) Cefepime (test code=51) Ceftazidime (test code=27) Ciprofloxacin (test code=7) Doripenem (test pkia=911) Gentamicin (test code=18) Imipenem (test code=19) Levofloxacin (test code=22) Meropenem (test code=34) Piperacillin (test code=24) Piperacillin + Tazobactam (test code=29) Tobramycin (test code=25) CULTURE (BEAKER) (test PSEUDOMONAS 4+ Pseudomonas rgms=1433) AERUGINOSA aeruginosaof a second typemucoid colony type Amikacin (test code=1) Aztreonam (test code=32) Cefepime (test code=51) Ceftazidime (test code=27) Ciprofloxacin (test code=7) Doripenem (test aedd=003) Gentamicin (test code=18) Imipenem (test code=19) Levofloxacin (test code=22) Meropenem (test code=34) Piperacillin (test code=24) Piperacillin + Tazobactam (test code=29) Tobramycin (test code=25) 4+ Normal respiratory derick presentPOCT-GLUCOSE [id number] 22:30:00 Test Item Value Reference Range Comments POC-GLUCOSE METER (BEAKER) 136 mg/dL 70-[address] [facility] [address] [facility] (test yzfb=6864) [facility] [address] POCT-GLUCOSE [id number] 17:29:00 Test Item Value Reference Range Comments POC-GLUCOSE METER (BEAKER) 148 mg/dL 70-[address] [facility] [address] [facility] (test hejk=2970) [facility] [address] POCT-GLUCOSE [id number] 12:35:00 Test Item Value Reference Range Comments POC-GLUCOSE METER (BEAKER) 209 mg/dL 70-110 TESTED AT [place] [id number] [facility] (test xqih=1517) [place] [address] POCT-GLUCOSE [id number] 08:39:00 Test Item Value Reference Range Comments POC-GLUCOSE METER (BEAKER) 122 mg/dL 70-110 TESTED AT [address] (test ofzn=0646) [place] [address] BUN AND [id number] 07:26:00 Test Item Value Reference Range Comments BLOOD UREA NITROGEN 21 mg/dL 7-21 (BEAKER) (test ujfv=973) CREATININE (BEAKER) (test 0.69 mg/dL 0.57-1.25 xjqp=153) EGFR (BEAKER) (test 127 mL/min/1.73 sq m ESTIMATED GFR IS NOT cipg=5488) ACCURATE CREATININE CLEARANCE IN PREDICTING GLOMERULAR FILTRATION RATE. ESTIMATED GFR IS NOT APPLICABLE FOR DIALYSIS PATIENTS. BASIC METABOLIC [id number] 07:26:00 Test Item Value Reference Range Comments SODIUM (BEAKER) (test 137 meq/L 136-145 dcvy=212) POTASSIUM (BEAKER) (test 4.6 meq/L 3.5-5.1 pdaa=206) CHLORIDE (BEAKER) (test 97 meq/L 98-107 osyr=213) CO2 (BEAKER) (test 30 meq/L 22-29 zvsc=100) BLOOD UREA NITROGEN 21 mg/dL 7-21 (BEAKER) (test qvjf=243) CREATININE (BEAKER) (test 0.69 mg/dL 0.57-1.25 wlxd=427) GLUCOSE RANDOM (BEAKER) 110 mg/dL 70-105 (test txcz=146) CALCIUM (BEAKER) (test 9.1 mg/dL 8.4-10.2 yxdl=772) EGFR (BEAKER) (test 127 mL/min/1.73 sq m ESTIMATED GFR IS NOT sruj=2811) ACCURATE CREATININE CLEARANCE IN PREDICTING GLOMERULAR FILTRATION RATE. ESTIMATED GFR IS NOT APPLICABLE FOR DIALYSIS PATIENTS. POCT-GLUCOSE [id number] 21:03:00 Test Item Value Reference Range Comments POC-GLUCOSE METER (BEAKER) 265 mg/dL 70-110 TESTED AT [address] (test dlrd=5727) [facility] [address] POCT-GLUCOSE [id number] 17:18:00 Test Item Value Reference Range Comments POC-GLUCOSE METER (BEAKER) 164 mg/dL 70-110 TESTED AT [address] (test zeer=6326) [facility] [address] POCT-GLUCOSE [id number] 13:11:00 Test Item Value Reference Range Comments POC-GLUCOSE METER (BEAKER) 101 mg/dL 70-110 TESTED AT [address] (test ttys=9434) [facility] [address] POCT-GLUCOSE [id number] 10:02:00 Test Item Value Reference Range Comments POC-GLUCOSE METER (BEAKER) 104 mg/dL 70-110 TESTED AT [address] (test dgtp=6609) [facility] [address] BASIC METABOLIC [id number] 08:46:00 Test Item Value Reference Range Comments SODIUM (BEAKER) (test 138 meq/L 136-145 hdtk=575) POTASSIUM (BEAKER) (test 4.1 meq/L 3.5-5.1 dwmd=675) CHLORIDE (BEAKER) (test 102 meq/L 98-107 tbmz=234) CO2 (BEAKER) (test 27 meq/L 22-29 ikgc=358) BLOOD UREA NITROGEN 15 mg/dL 7-21 (BEAKER) (test nqzq=755) CREATININE (BEAKER) (test 0.62 mg/dL 0.57-1.25 nfqj=086) GLUCOSE RANDOM (BEAKER) 66 mg/dL 70-105 (test qhky=109) CALCIUM (BEAKER) (test 8.9 mg/dL 8.4-10.2 vpqt=560) EGFR (BEAKER) (test 143 mL/min/1.73 sq m ESTIMATED GFR IS NOT dmzi=0855) ACCURATE CREATININE CLEARANCE IN PREDICTING GLOMERULAR FILTRATION RATE. ESTIMATED GFR IS NOT APPLICABLE FOR DIALYSIS PATIENTS. BUN AND [id number] 05:18:00 Test Item Value Reference Range Comments BLOOD UREA NITROGEN 17 mg/dL 7-21 (BEAKER) (test nkdr=942) CREATININE (BEAKER) (test 0.70 mg/dL 0.57-1.25 scvw=068) EGFR (BEAKER) (test 125 mL/min/1.73 sq m ESTIMATED GFR IS NOT qmay=4912) ACCURATE CREATININE CLEARANCE IN PREDICTING GLOMERULAR FILTRATION RATE. ESTIMATED GFR IS NOT APPLICABLE FOR DIALYSIS PATIENTS. POCT-GLUCOSE [id number] 21:17:00 Test Item Value Reference Range Comments POC-GLUCOSE METER (BEAKER) 399 mg/dL 70-110 Notified JORDON STAPLETON/TESTED AT [facility] (test wfsu=8345) [address] [place], [place] [id number] POCT-GLUCOSE [id number] 17:37:00 Test Item Value Reference Range Comments POC-GLUCOSE METER (BEAKER) 416 mg/dL 70-110 TESTED AT [address] (test uouf=9679) [place] [address] POCT-GLUCOSE [id number] 12:45:00 Test Item Value Reference Range Comments POC-GLUCOSE METER (BEAKER) 291 mg/dL 70-110 TESTED AT [address] (test dfgq=4755) [place] [address] POCT-GLUCOSE [id number] 07:12:00 Test Item Value Reference Range Comments POC-GLUCOSE METER (BEAKER) 237 mg/dL 70-110 TESTED AT [address] (test ryed=8623) [place] [address] BUN AND [id number] 04:32:00 Test Item Value Reference Range Comments BLOOD UREA NITROGEN 15 mg/dL 7-21 (BEAKER) (test yukx=780) CREATININE (BEAKER) (test 0.63 mg/dL 0.57-1.25 qdln=882) EGFR (BEAKER) (test 141 mL/min/1.73 sq m ESTIMATED GFR IS NOT ikel=7487) ACCURATE CREATININE CLEARANCE IN PREDICTING GLOMERULAR FILTRATION RATE. ESTIMATED GFR IS NOT APPLICABLE FOR DIALYSIS PATIENTS. POCT-GLUCOSE [id number] 21:34:00 Test Item Value Reference Range Comments POC-GLUCOSE METER (BEAKER) 321 mg/dL 70-110 Notified JORDON STAPLETON/TESTED AT [facility] (test jrda=0294) [address] [place], [place] [address] POCT-GLUCOSE [id number] 17:53:00 Test Item Value Reference Range Comments POC-GLUCOSE METER (BEAKER) 392 mg/dL 70-110 TESTED AT [address] (test xeol=5571) [place] [address] POCT-GLUCOSE [id number] 12:39:00 Test Item Value Reference Range Comments POC-GLUCOSE METER (BEAKER) 306 mg/dL 70-110 TESTED AT [address] (test zwjf=0653) [place] [address] POCT-GLUCOSE [id number] 08:24:00 Test Item Value Reference Range Comments POC-GLUCOSE METER (BEAKER) 304 mg/dL 70-110 TESTED AT [address] (test jnui=6151) [place] [address] BUN AND [id number] 05:48:00 Test Item Value Reference Range Comments BLOOD UREA NITROGEN 19 mg/dL 7-21 (BEAKER) (test hewo=046) CREATININE (BEAKER) (test 0.91 mg/dL 0.57-1.25 otfj=357) EGFR (BEAKER) (test 92 mL/min/1.73 sq m ESTIMATED GFR IS NOT fluc=5798) ACCURATE CREATININE CLEARANCE IN PREDICTING GLOMERULAR FILTRATION RATE. ESTIMATED GFR IS NOT APPLICABLE FOR DIALYSIS PATIENTS. POCT-GLUCOSE [id number] 21:41:00 Test Item Value Reference Range Comments POC-GLUCOSE METER (BEAKER) 221 mg/dL 70-110 TESTED AT [address] (test jjie=3669) [place] [address] POCT-GLUCOSE [id number] 17:13:00 Test Item Value Reference Range Comments POC-GLUCOSE METER (BEAKER) 321 mg/dL 70-110 Notified RN or MD Patient (test iosy=7158) refused repeat test/TESTED AT [place] [address] BUN AND [id number] 16:20:00 Test Item Value Reference Range Comments BLOOD UREA NITROGEN 10 mg/dL 7-21 (BEAKER) (test pcng=332) CREATININE (BEAKER) (test 0.60 mg/dL 0.57-1.25 hjsg=623) EGFR (BEAKER) (test 149 mL/min/1.73 sq m ESTIMATED GFR IS NOT ailu=7333) ACCURATE CREATININE CLEARANCE IN PREDICTING GLOMERULAR FILTRATION RATE. ESTIMATED GFR IS NOT APPLICABLE FOR DIALYSIS PATIENTS. POCT-GLUCOSE [id number] 11:55:00 Test Item Value Reference Range Comments POC-GLUCOSE METER (BEAKER) 200 mg/dL 70-110 TESTED AT [address] (test jfen=5587) [facility] [address] POCT-GLUCOSE [id number] 08:16:00 Test Item Value Reference Range Comments POC-GLUCOSE METER (BEAKER) 419 mg/dL 70-110 TESTED AT [address] (test dvwm=4826) [facility] [address] POCT-GLUCOSE [id number] 21:09:00 Test Item Value Reference Range Comments POC-GLUCOSE METER (BEAKER) 376 mg/dL 70-110 TESTED AT [address] (test nwmr=9837) [facility] [address] POCT-GLUCOSE [id number] 17:27:00 Test Item Value Reference Range Comments POC-GLUCOSE METER (BEAKER) 267 mg/dL 70-110 TESTED AT [address] (test xfel=6541) [place] [address] POCT-GLUCOSE [id number] 13:54:00 Test Item Value Reference Range Comments POC-GLUCOSE METER (BEAKER) 197 mg/dL 70-110 TESTED AT [address] (test rujd=7283) [facility] [address] POCT-GLUCOSE [id number] 12:34:00 Test Item Value Reference Range Comments POC-GLUCOSE METER (BEAKER) > mg/dL 70-110 OUTSIDE MEASURING RANGETESTED AT (test vlsb=2635) [address] [address] POCT-GLUCOSE [id number] 08:15:00 Test Item Value Reference Range Comments POC-GLUCOSE METER (BEAKER) 387 mg/dL 70-110 Notified JORDON STAPLETON/TESTED AT [facility] (test fqly=8671) [address] [place] [address] BASIC METABOLIC [id number] 05:17:00 Test Item Value Reference Range Comments SODIUM (BEAKER) (test 136 meq/L 136-145 siey=316) POTASSIUM (BEAKER) (test 4.3 meq/L 3.5-5.1 cbwx=878) CHLORIDE (BEAKER) (test 101 meq/L 98-107 sebe=814) CO2 (BEAKER) (test 24 meq/L 22-29 iscr=743) BLOOD UREA NITROGEN 10 mg/dL 7-21 (BEAKER) (test hyad=230) CREATININE (BEAKER) (test 0.73 mg/dL 0.57-1.25 kpxv=972) GLUCOSE RANDOM (BEAKER) 273 mg/dL 70-105 (test xayh=644) CALCIUM (BEAKER) (test 8.6 mg/dL 8.4-10.2 zaej=483) EGFR (BEAKER) (test 119 mL/min/1.73 sq m ESTIMATED GFR IS NOT nfyl=4378) ACCURATE CREATININE CLEARANCE IN PREDICTING GLOMERULAR FILTRATION RATE. ESTIMATED GFR IS NOT APPLICABLE FOR DIALYSIS PATIENTS. SPIN/CONCENTRATION [id number] 05:13:00 Test Item Value Reference Range Comments CONCENTRATION CHARGED (BEAKER) (test afti=0741) Done URINALYSIS W/ [id number] 01:00:00 Test Item Value Reference Range Comments COLOR (BEAKER) (test omgl=834) Light Yellow CLARITY (BEAKER) (test xodr=768) Clear SPECIFIC GRAVITY UA (BEAKER) (test tlqs=286) 1.028 1.001-1.035 PH UA (BEAKER) (test wpnb=353) 7.0 5.0-8.0 PROTEIN UA (BEAKER) (test fngw=138) 20 mg/dL Negative GLUCOSE UA (BEAKER) (test ouhe=479) >1000 mg/dL Negative KETONES UA (BEAKER) (test dwqw=339) Negative Negative BILIRUBIN UA (BEAKER) (test fsnh=426) Negative Negative BLOOD UA (BEAKER) (test eewg=193) Negative Negative NITRITE UA (BEAKER) (test ptcw=171) Negative Negative LEUKOCYTE ESTERASE UA (BEAKER) (test rorz=562) Negative Negative UROBILINOGEN UA (BEAKER) (test pauf=376) 0.2 mg/dL 0.2-1.0 RBC UA (BEAKER) (test frqv=239) 1 /HPF WBC UA (BEAKER) (test jylt=063) < /HPF SQUAMOUS EPITHELIAL (BEAKER) (test yxdx=686) 1 /HPF SOURCE(BEAKER) (test zrtf=2496) Urine, Voided SCREEN, [id number] 00:55:00 Test Item Value Reference Range Comments TEST URINE (BEAKER) (test yomo=504) Negative POCT-GLUCOSE [id number] 21:10:00 Test Item Value Reference Range Comments POC-GLUCOSE METER (BEAKER) 342 mg/dL 70-[address] [facility] [address] [facility] (test laxu=3257) [facility] [address] HEMOGLOBIN [id number] 19:26:00 Test Item Value Reference Range Comments HEMOGLOBIN A1C (BEAKER) (test vwwo=708) 15.4 % 4.3-6.1 POCT-GLUCOSE [id number] 19:20:00 Test Item Value Reference Range Comments POC-GLUCOSE METER (BEAKER) 470 mg/dL 70-[address] [facility] [address] [facility] (test bnwv=6194) [facility] [address] COMPREHENSIVE METABOLIC [id number] 19:10:00 Test Item Value Reference Range Comments TOTAL PROTEIN (BEAKER) 7.3 gm/dL 6.0-8.3 (test auua=886) ALBUMIN (BEAKER) (test 3.2 g/dL 3.5-5.0 isyn=7110) ALKALINE PHOSPHATASE 129 U/L 40-150 (BEAKER) (test jhec=575) BILIRUBIN TOTAL (BEAKER) < mg/dL 0.2-1.2 (test jzfp=211) SODIUM (BEAKER) (test 138 meq/L 136-145 rzkf=250) POTASSIUM (BEAKER) (test 4.4 meq/L 3.5-5.1 teol=009) CHLORIDE (BEAKER) (test 99 meq/L 98-107 ifqj=468) CO2 (BEAKER) (test 29 meq/L 22-29 dcqe=724) BLOOD UREA NITROGEN 6 mg/dL 7-21 (BEAKER) (test islw=370) CREATININE (BEAKER) (test 0.81 mg/dL 0.57-1.25 oszc=407) GLUCOSE RANDOM (BEAKER) 515 mg/dL 70-105 (test qzic=605) CALCIUM (BEAKER) (test 9.1 mg/dL 8.4-10.2 jdbb=286) AST (SGOT) (BEAKER) (test 9 U/L 5-34 hihe=494) ALT (SGPT) (BEAKER) (test 6 U/L 6-55 rego=831) EGFR (BEAKER) (test 105 mL/min/1.73 sq ESTIMATED GFR IS NOT jymv=7372) m ACCURATE CREATININE CLEARANCE IN PREDICTING GLOMERULAR FILTRATION RATE. ESTIMATED GFR IS NOT APPLICABLE FOR DIALYSIS PATIENTS. [id number] 19:07:00 Test Item Value Reference Range Comments PHOSPHORUS (BEAKER) (test arpm=516) 3.4 mg/dL 2.3-4.7 [id number] 19:07:00 Test Item Value Reference Range Comments MAGNESIUM (BEAKER) (test uxmd=357) 1.5 mg/dL 1.6-2.6 GAMMA GLUTAMYL TRANSFERASE (GGT)[id number] 19:07:00 Test Item Value Reference Range Comments GAMMA GLUTAMYL TRANSFERASE (BEAKER) (test kdug=226) 24 U/L 9-64 CBC W/PLT COUNT & AUTO [id number] 18:40:00 Test Item Value Reference Range Comments WHITE BLOOD CELL COUNT (BEAKER) (test opln=852) 8.4 K/ L 3.5-10.5 RED BLOOD CELL COUNT (BEAKER) (test wcdj=501) 4.51 M/ L 3.93-5.22 HEMOGLOBIN (BEAKER) (test ljad=633) 11.4 GM/DL 11.2-15.7 HEMATOCRIT (BEAKER) (test spmc=538) 37.0 % 34.1-44.9 MEAN CORPUSCULAR VOLUME (BEAKER) (test gaym=840) 82.0 fL 79.4-94.8 MEAN CORPUSCULAR HEMOGLOBIN (BEAKER) (test 25.3 pg 25.6-32.2 bcal=274) MEAN CORPUSCULAR HEMOGLOBIN CONC (BEAKER) (test 30.8 GM/DL 32.2-35.5 kajt=793) RED CELL DISTRIBUTION WIDTH (BEAKER) (test 14.6 % 11.7-14.4 uodg=270) PLATELET COUNT (BEAKER) (test ygzh=546) 302 K/CU MM 150-450 MEAN PLATELET VOLUME (BEAKER) (test woay=077) 12.4 fL 9.4-12.3 NUCLEATED RED BLOOD CELLS (BEAKER) (test 0 /100 WBC 0-0 mddk=411) NEUTROPHILS RELATIVE PERCENT (BEAKER) (test 68 % unxb=265) LYMPHOCYTES RELATIVE PERCENT (BEAKER) (test 20 % hktx=075) MONOCYTES RELATIVE PERCENT (BEAKER) (test 8 % ebdd=158) EOSINOPHILS RELATIVE PERCENT (BEAKER) (test 3 % xopj=907) BASOPHILS RELATIVE PERCENT (BEAKER) (test 0 % mabl=014) NEUTROPHILS ABSOLUTE COUNT (BEAKER) (test 5.74 K/ L 1.56-6.13 lnzr=509) LYMPHOCYTES ABSOLUTE COUNT (BEAKER) (test 1.66 K/ L 1.18-3.74 jxyl=166) MONOCYTES ABSOLUTE COUNT (BEAKER) (test 0.70 K/ L 0.24-0.36 pdxf=357) EOSINOPHILS ABSOLUTE COUNT (BEAKER) (test 0.28 K/ L 0.04-0.36 ufhn=899) BASOPHILS ABSOLUTE COUNT (BEAKER) (test 0.03 K/ L 0.01-0.08 kcgu=495) IMMATURE GRANULOCYTES-RELATIVE PERCENT (BEAKER) 0 % 0-1 (test rfqj=1506) AFB CULTURE + [id number] 07:09:00 Test Item Value Reference Range Comments CULTURE (BEAKER) (test No acid-fast bacilli isolated gavs=7418) in 42 days AFB SMEAR (BEAKER) (test No acid fast bacilli seen qfcw=889) POCT-GLUCOSE [id number] 12:37:00 Test Item Value Reference Range Comments POC-GLUCOSE METER (BEAKER) 215 mg/dL 70-110 TESTED AT [address] (test vopi=7350) [place] [address] POCT-GLUCOSE [id number] 08:48:00 Test Item Value Reference Range Comments POC-GLUCOSE METER (BEAKER) 264 mg/dL 70-110 TESTED AT [address] (test gqfx=0680) [place] [address] [id number] 06:25:00 Test Item Value Reference Range Comments PHOSPHORUS (BEAKER) (test ytnk=571) 4.3 mg/dL 2.3-4.7 [id number] 06:25:00 Test Item Value Reference Range Comments MAGNESIUM (BEAKER) (test bqnc=610) 1.8 mg/dL 1.6-2.6 BASIC METABOLIC [id number] 06:25:00 Test Item Value Reference Range Comments SODIUM (BEAKER) (test 140 meq/L 136-145 tefo=296) POTASSIUM (BEAKER) (test 4.5 meq/L 3.5-5.1 iucc=350) CHLORIDE (BEAKER) (test 103 meq/L 98-107 fnit=440) CO2 (BEAKER) (test 27 meq/L 22-29 nzln=352) BLOOD UREA NITROGEN 18 mg/dL 7-21 (BEAKER) (test nrvz=338) CREATININE (BEAKER) (test 0.74 mg/dL 0.57-1.25 ghws=239) GLUCOSE RANDOM (BEAKER) 253 mg/dL 70-105 (test vvqa=086) CALCIUM (BEAKER) (test 8.0 mg/dL 8.4-10.2 etxn=603) EGFR (BEAKER) (test 117 mL/min/1.73 sq m ESTIMATED GFR IS NOT imau=7246) ACCURATE CREATININE CLEARANCE IN PREDICTING GLOMERULAR FILTRATION RATE. ESTIMATED GFR IS NOT APPLICABLE FOR DIALYSIS PATIENTS. CBC W/PLT COUNT & AUTO [id number] 06:01:00 Test Item Value Reference Range Comments WHITE BLOOD CELL COUNT (BEAKER) (test yxcj=353) 11.6 K/ L 4.0-10.0 RED BLOOD CELL COUNT (BEAKER) (test pbet=366) 3.80 M/ L 4.00-5.00 HEMOGLOBIN (BEAKER) (test ldrs=069) 10.4 GM/DL 12.0-15.0 HEMATOCRIT (BEAKER) (test smae=631) 33.1 % 36.0-45.0 MEAN CORPUSCULAR VOLUME (BEAKER) (test ikgt=859) 87.1 fL 82.0-99.0 MEAN CORPUSCULAR HEMOGLOBIN (BEAKER) (test 27.4 pg 27.0-33.0 pfuk=490) MEAN CORPUSCULAR HEMOGLOBIN CONC (BEAKER) (test 31.4 GM/DL 32.0-36.0 kjwr=488) RED CELL DISTRIBUTION WIDTH (BEAKER) (test 16.5 % 10.3-14.2 lcii=707) PLATELET COUNT (BEAKER) (test xoec=832) 324 K/CU MM 150-430 MEAN PLATELET VOLUME (BEAKER) (test inox=762) 8.8 fL 6.5-10.5 NUCLEATED RED BLOOD CELLS (BEAKER) (test 0 /100 WBC 0-0 tyqf=569) NEUTROPHILS RELATIVE PERCENT (BEAKER) (test 63 % fnud=989) LYMPHOCYTES RELATIVE PERCENT (BEAKER) (test 24 % otxp=925) MONOCYTES RELATIVE PERCENT (BEAKER) (test 9 % wgtv=463) EOSINOPHILS RELATIVE PERCENT (BEAKER) (test 3 % bkkr=938) BASOPHILS RELATIVE PERCENT (BEAKER) (test 1 % ften=439) NEUTROPHILS ABSOLUTE COUNT (BEAKER) (test 7.31 K/ L 1.80-8.00 nlre=504) LYMPHOCYTES ABSOLUTE COUNT (BEAKER) (test 2.77 K/ L 1.48-4.50 bcev=928) MONOCYTES ABSOLUTE COUNT (BEAKER) (test 1.03 K/ L 0.00-1.30 sbxv=047) EOSINOPHILS ABSOLUTE COUNT (BEAKER) (test 0.39 K/ L 0.00-0.50 kzzr=644) BASOPHILS ABSOLUTE COUNT (BEAKER) (test 0.07 K/ L 0.00-0.20 rxev=655) 0.00CF RESPIRATORY [id number] 00:39:00 Test Item Value Reference Range Comments CULTURE (BEAKER) (test PSEUDOMONAS 4+ Pseudomonas wpjx=9294) AERUGINOSA aeruginosa (MUCOID-PHENOTYPE) (Mucoid-phenotype)mu coid colony type Amikacin (test code=1) Susceptible 0-16 , Resistant <0 or >16 Ampicillin (test code=26) Ampicillin + Sulbactam (test code=6) Aztreonam (test code=32) Susceptible 0-8 , Resistant <0 or >8 Cefazolin (test code=9) Cefepime (test code=51) Susceptible 0-8 , Resistant <0 or >8 Ceftazidime (test Susceptible 0-8 , code=27) Resistant <0 or >8 Ceftriaxone (test code=52) Ciprofloxacin (test Susceptible 0-1 , code=7) Resistant <0 or >1 Doripenem (test znuc=814) Susceptible 0-2 , Resistant <0 or >2 Ertapenem (test code=38) Gentamicin (test code=18) Susceptible 0-4 , Resistant <0 or >4 Imipenem (test code=19) Susceptible 0-2 , Resistant <0 or >2 Levofloxacin (test Susceptible 0-2 , code=22) Resistant <0 or >2 Meropenem (test code=34) Susceptible 0-2 , Resistant <0 or >2 Minocycline (test code=35) Nitrofurantoin (test code=23) Piperacillin (test Susceptible 0-16 , code=24) Resistant <0 or >16 Piperacillin + Tazobactam Susceptible 0-16 , (test code=29) Resistant <0 or >16 Tetracycline (test code=2) Ticarcillin + Clavulanic Acid (test code=80) Tigecycline (test ehok=317) Tobramycin (test code=25) Susceptible 0-4 , Resistant <0 or >4 Trimethoprim + Sulfamethoxazole (test code=47) CULTURE (BEAKER) (test PSEUDOMONAS 4+ Pseudomonas ojsm=3883) AERUGINOSA aeruginosaof a second type Amikacin (test code=1) Susceptible 0-16 , Resistant <0 or >16 Ampicillin (test osit=293) Ampicillin + Sulbactam (test code=62) Aztreonam (test code=32) Susceptible 0-8 , Resistant <0 or >8 Cefazolin (test code=92) Cefepime (test code=51) Susceptible 0-8 , Resistant <0 or >8 Ceftazidime (test Susceptible 0-8 , code=27) Resistant <0 or >8 Ceftriaxone (test tkmg=119) Ciprofloxacin (test Susceptible 0-1 , code=7) Resistant <0 or >1 Doripenem (test hwnm=780) Susceptible 0-2 , Resistant <0 or >2 Ertapenem (test tmhy=734) Gentamicin (test code=18) Susceptible 0-4 , Resistant <0 or >4 Imipenem (test code=19) Susceptible 0-2 , Resistant <0 or >2 Levofloxacin (test Susceptible 0-2 , code=22) Resistant <0 or >2 Meropenem (test code=34) Susceptible 0-2 , Resistant <0 or >2 Minocycline (test njxb=685) Nitrofurantoin (test iudt=591) Piperacillin (test Susceptible 0-16 , code=24) Resistant <0 or >16 Piperacillin + Tazobactam Susceptible 0-16 , (test code=29) Resistant <0 or >16 Tetracycline (test code=22) Ticarcillin + Clavulanic Acid (test trbh=677) Tigecycline (test icbk=0443) Tobramycin (test code=25) Susceptible 0-4 , Resistant <0 or >4 Trimethoprim + Sulfamethoxazole (test tyni=991) 3+ Normal respiratory derick presentPOCT-GLUCOSE [id number] 21:38:00 Test Item Value Reference Range Comments POC-GLUCOSE METER (BEAKER) 221 mg/dL 70-110 TESTED AT [place] [id number] [facility] (test neeh=0056) [facility] [id number] POCT-GLUCOSE [id number] 17:55:00 Test Item Value Reference Range Comments POC-GLUCOSE METER (BEAKER) 146 mg/dL 70-110 TESTED AT [address] (test tscz=4025) [facility] [id number] POCT-GLUCOSE [id number] 12:18:00 Test Item Value Reference Range Comments POC-GLUCOSE METER (BEAKER) 249 mg/dL 70-110 TESTED AT [address] (test pfix=7334) [facility] [address] CBC W/PLT COUNT & AUTO [id number] 11:26:00 Test Item Value Reference Range Comments WHITE BLOOD CELL COUNT (BEAKER) (test oghl=831) 11.6 K/ L 4.0-10.0 RED BLOOD CELL COUNT (BEAKER) (test islm=699) 3.75 M/ L 4.00-5.00 HEMOGLOBIN (BEAKER) (test iixu=550) 10.4 GM/DL 12.0-15.0 HEMATOCRIT (BEAKER) (test otmu=903) 32.6 % 36.0-45.0 MEAN CORPUSCULAR VOLUME (BEAKER) (test yxko=080) 86.9 fL 82.0-99.0 MEAN CORPUSCULAR HEMOGLOBIN (BEAKER) (test 27.8 pg 27.0-33.0 elqq=099) MEAN CORPUSCULAR HEMOGLOBIN CONC (BEAKER) (test 32.0 GM/DL 32.0-36.0 rfwz=469) RED CELL DISTRIBUTION WIDTH (BEAKER) (test 16.1 % 10.3-14.2 fcxx=847) PLATELET COUNT (BEAKER) (test vyzt=126) 303 K/CU MM 150-430 MEAN PLATELET VOLUME (BEAKER) (test wjvz=997) 8.8 fL 6.5-10.5 NUCLEATED RED BLOOD CELLS (BEAKER) (test 0 /100 WBC 0-0 ngul=339) NEUTROPHILS RELATIVE PERCENT (BEAKER) (test 71 % svxz=314) LYMPHOCYTES RELATIVE PERCENT (BEAKER) (test 19 % ucsy=335) MONOCYTES RELATIVE PERCENT (BEAKER) (test 8 % irjm=002) EOSINOPHILS RELATIVE PERCENT (BEAKER) (test 1 % vwoe=153) BASOPHILS RELATIVE PERCENT (BEAKER) (test 0 % ujwq=243) NEUTROPHILS ABSOLUTE COUNT (BEAKER) (test 8.28 K/ L 1.80-8.00 kwyb=553) LYMPHOCYTES ABSOLUTE COUNT (BEAKER) (test 2.20 K/ L 1.48-4.50 cwhk=813) MONOCYTES ABSOLUTE COUNT (BEAKER) (test 0.99 K/ L 0.00-1.30 noaq=302) EOSINOPHILS ABSOLUTE COUNT (BEAKER) (test 0.12 K/ L 0.00-0.50 hbzn=552) BASOPHILS ABSOLUTE COUNT (BEAKER) (test 0.03 K/ L 0.00-0.20 ddgk=806) [id number] 11:23:00 Test Item Value Reference Range Comments MAGNESIUM (BEAKER) (test uyxr=467) 1.3 mg/dL 1.6-2.6 BASIC METABOLIC [id number] 11:23:00 Test Item Value Reference Range Comments SODIUM (BEAKER) (test 139 meq/L 136-145 ysqx=973) POTASSIUM (BEAKER) (test 3.1 meq/L 3.5-5.1 shnq=843) CHLORIDE (BEAKER) (test 103 meq/L 98-107 qqvc=450) CO2 (BEAKER) (test 26 meq/L 22-29 vhrd=466) BLOOD UREA NITROGEN 17 mg/dL 7-21 (BEAKER) (test jwki=906) CREATININE (BEAKER) (test 0.69 mg/dL 0.57-1.25 foyl=696) GLUCOSE RANDOM (BEAKER) 222 mg/dL 70-105 (test dlyt=728) CALCIUM (BEAKER) (test 8.6 mg/dL 8.4-10.2 yvin=721) EGFR (BEAKER) (test 127 mL/min/1.73 sq m ESTIMATED GFR IS NOT dxaz=9229) ACCURATE CREATININE CLEARANCE IN PREDICTING GLOMERULAR FILTRATION RATE. ESTIMATED GFR IS NOT APPLICABLE FOR DIALYSIS PATIENTS. SCREEN, [id number] 11:22:00 Test Item Value Reference Range Comments TEST URINE (BEAKER) (test ucuq=511) Negative POCT-GLUCOSE [id number] 08:09:00 Test Item Value Reference Range Comments POC-GLUCOSE METER (BEAKER) 264 mg/dL 70-110 TESTED AT [address] (test segp=1543) [facility] [address] POCT-GLUCOSE [id number] 22:02:00 Test Item Value Reference Range Comments POC-GLUCOSE METER (BEAKER) 221 mg/dL 70-110 TESTED AT [address] (test nojl=2775) [facility] [address] POCT-GLUCOSE [id number] 17:16:00 Test Item Value Reference Range Comments POC-GLUCOSE METER (BEAKER) 173 mg/dL 70-110 TESTED AT [address] (test eept=9627) [place] [address] POCT-GLUCOSE [id number] 13:38:00 Test Item Value Reference Range Comments POC-GLUCOSE METER (BEAKER) 155 mg/dL 70-110 TESTED AT [address] (test fncn=3928) [facility] [address] POCT-GLUCOSE [id number] 09:15:00 Test Item Value Reference Range Comments POC-GLUCOSE METER (BEAKER) 258 mg/dL 70-110 TESTED AT [address] (test cmqm=5724) [place] [address] CBC W/PLT COUNT & AUTO [id number] 06:38:00 Test Item Value Reference Range Comments WHITE BLOOD CELL COUNT (BEAKER) (test jawd=176) 11.0 K/ L 4.0-10.0 RED BLOOD CELL COUNT (BEAKER) (test fpni=969) 3.81 M/ L 4.00-5.00 HEMOGLOBIN (BEAKER) (test hvnc=821) 10.2 GM/DL 12.0-15.0 HEMATOCRIT (BEAKER) (test uhce=253) 33.4 % 36.0-45.0 MEAN CORPUSCULAR VOLUME (BEAKER) (test xaje=609) 87.8 fL 82.0-99.0 MEAN CORPUSCULAR HEMOGLOBIN (BEAKER) (test 26.8 pg 27.0-33.0 gttc=836) MEAN CORPUSCULAR HEMOGLOBIN CONC (BEAKER) (test 30.5 GM/DL 32.0-36.0 yhxf=069) RED CELL DISTRIBUTION WIDTH (BEAKER) (test 14.8 % 10.3-14.2 fglp=683) PLATELET COUNT (BEAKER) (test zxis=759) 277 K/CU MM 150-430 MEAN PLATELET VOLUME (BEAKER) (test vslm=795) 8.8 fL 6.5-10.5 NUCLEATED RED BLOOD CELLS (BEAKER) (test 0 /100 WBC 0-0 iasf=947) NEUTROPHILS RELATIVE PERCENT (BEAKER) (test 77 % jlzy=481) LYMPHOCYTES RELATIVE PERCENT (BEAKER) (test 15 % nxnk=373) MONOCYTES RELATIVE PERCENT (BEAKER) (test 8 % qgie=589) EOSINOPHILS RELATIVE PERCENT (BEAKER) (test 0 % fdlk=522) BASOPHILS RELATIVE PERCENT (BEAKER) (test 0 % zrqd=134) NEUTROPHILS ABSOLUTE COUNT (BEAKER) (test 8.41 K/ L 1.80-8.00 hlrx=095) LYMPHOCYTES ABSOLUTE COUNT (BEAKER) (test 1.60 K/ L 1.48-4.50 gqrw=709) MONOCYTES ABSOLUTE COUNT (BEAKER) (test 0.87 K/ L 0.00-1.30 whkw=075) EOSINOPHILS ABSOLUTE COUNT (BEAKER) (test 0.03 K/ L 0.00-0.50 qiag=032) BASOPHILS ABSOLUTE COUNT (BEAKER) (test 0.04 K/ L 0.00-0.20 qddf=517) [id number] 06:33:00 Test Item Value Reference Range Comments MAGNESIUM (BEAKER) (test kxkn=240) 1.3 mg/dL 1.6-2.6 BASIC METABOLIC [id number] 06:33:00 Test Item Value Reference Range Comments SODIUM (BEAKER) (test 136 meq/L 136-145 vomx=367) POTASSIUM (BEAKER) (test 3.3 meq/L 3.5-5.1 cnyr=128) CHLORIDE (BEAKER) (test 102 meq/L 98-107 iysa=493) CO2 (BEAKER) (test 25 meq/L 22-29 nawb=887) BLOOD UREA NITROGEN 16 mg/dL 7-21 (BEAKER) (test ucgx=674) CREATININE (BEAKER) (test 0.69 mg/dL 0.57-1.25 swji=202) GLUCOSE RANDOM (BEAKER) 222 mg/dL 70-105 (test anzm=938) CALCIUM (BEAKER) (test 8.3 mg/dL 8.4-10.2 gigs=030) EGFR (BEAKER) (test 127 mL/min/1.73 sq m ESTIMATED GFR IS NOT ymhr=1764) ACCURATE CREATININE CLEARANCE IN PREDICTING GLOMERULAR FILTRATION RATE. ESTIMATED GFR IS NOT APPLICABLE FOR DIALYSIS PATIENTS. POCT-GLUCOSE [id number] 22:04:00 Test Item Value Reference Range Comments POC-GLUCOSE METER (BEAKER) 336 mg/dL 70-110 TESTED AT [address] (test gjsv=8914) [place] [address] POCT-GLUCOSE [id number] 17:40:00 Test Item Value Reference Range Comments POC-GLUCOSE METER (BEAKER) 281 mg/dL 70-110 TESTED AT [address] (test nnxk=8935) [place] [address] POCT-GLUCOSE [id number] 11:41:00 Test Item Value Reference Range Comments POC-GLUCOSE METER (BEAKER) 412 mg/dL 70-110 TESTED AT [address] (test dkxw=9662) [place] [address] BASIC METABOLIC [id number] 09:00:00 Test Item Value Reference Range Comments SODIUM (BEAKER) (test 133 meq/L 136-145 bwxa=872) POTASSIUM (BEAKER) (test 3.9 meq/L 3.5-5.1 gvtj=588) CHLORIDE (BEAKER) (test 100 meq/L 98-107 xjki=900) CO2 (BEAKER) (test 25 meq/L 22-29 ijou=839) BLOOD UREA NITROGEN 16 mg/dL 7-21 (BEAKER) (test fprv=888) CREATININE (BEAKER) (test 1.02 mg/dL 0.57-1.25 zoga=678) GLUCOSE RANDOM (BEAKER) 522 mg/dL 70-105 (test unfd=616) CALCIUM (BEAKER) (test 9.0 mg/dL 8.4-10.2 gbqg=648) EGFR (BEAKER) (test 81 mL/min/1.73 sq m ESTIMATED GFR IS NOT rblq=4285) ACCURATE CREATININE CLEARANCE IN PREDICTING GLOMERULAR FILTRATION RATE. ESTIMATED GFR IS NOT APPLICABLE FOR DIALYSIS PATIENTS. POCT-GLUCOSE [id number] 08:49:00 Test Item Value Reference Range Comments POC-GLUCOSE METER (BEAKER) 444 mg/dL 70-110 Notified JORDON STAPLETON/TESTED AT [facility] (test zimx=2979) [address] [place] [address] [id number] 08:44:00 Test Item Value Reference Range Comments MAGNESIUM (BEAKER) (test xwyt=012) 1.3 mg/dL 1.6-2.6 CBC W/PLT COUNT & AUTO [id number] 08:26:00 Test Item Value Reference Range Comments WHITE BLOOD CELL COUNT (BEAKER) (test atdq=920) 9.4 K/ L 4.0-10.0 RED BLOOD CELL COUNT (BEAKER) (test mvjd=892) 3.89 M/ L 4.00-5.00 HEMOGLOBIN (BEAKER) (test igzo=550) 10.4 GM/DL 12.0-15.0 HEMATOCRIT (BEAKER) (test nefm=074) 34.5 % 36.0-45.0 MEAN CORPUSCULAR VOLUME (BEAKER) (test qtlk=846) 88.6 fL 82.0-99.0 MEAN CORPUSCULAR HEMOGLOBIN (BEAKER) (test 26.7 pg 27.0-33.0 ywnu=780) MEAN CORPUSCULAR HEMOGLOBIN CONC (BEAKER) (test 30.1 GM/DL 32.0-36.0 nocu=146) RED CELL DISTRIBUTION WIDTH (BEAKER) (test 14.6 % 10.3-14.2 wbpb=364) PLATELET COUNT (BEAKER) (test arkf=575) 274 K/CU MM 150-430 MEAN PLATELET VOLUME (BEAKER) (test ijau=339) 8.7 fL 6.5-10.5 NUCLEATED RED BLOOD CELLS (BEAKER) (test 0 /100 WBC 0-0 sjbs=037) NEUTROPHILS RELATIVE PERCENT (BEAKER) (test 77 % dqhk=631) LYMPHOCYTES RELATIVE PERCENT (BEAKER) (test 15 % eimu=180) MONOCYTES RELATIVE PERCENT (BEAKER) (test 9 % pfpt=103) EOSINOPHILS RELATIVE PERCENT (BEAKER) (test 0 % jswj=141) BASOPHILS RELATIVE PERCENT (BEAKER) (test 0 % wfzw=399) NEUTROPHILS ABSOLUTE COUNT (BEAKER) (test 7.16 K/ L 1.80-8.00 uykg=770) LYMPHOCYTES ABSOLUTE COUNT (BEAKER) (test 1.39 K/ L 1.48-4.50 gdau=732) MONOCYTES ABSOLUTE COUNT (BEAKER) (test 0.81 K/ L 0.00-1.30 nslp=280) EOSINOPHILS ABSOLUTE COUNT (BEAKER) (test 0.01 K/ L 0.00-0.50 ntxl=598) BASOPHILS ABSOLUTE COUNT (BEAKER) (test 0.00 K/ L 0.00-0.20 dori=769) 0.00POCT-GLUCOSE [id number] 21:23:00 Test Item Value Reference Range Comments POC-GLUCOSE METER (BEAKER) 176 mg/dL 70-110 TESTED AT [address] (test pzbz=8092) [place] [address] HEMOGLOBIN [id number] 21:21:00 Test Item Value Reference Range Comments HEMOGLOBIN A1C (BEAKER) (test jjme=983) 12.1 % 4.3-6.1 POCT-GLUCOSE [id number] 18:03:00 Test Item Value Reference Range Comments POC-GLUCOSE METER (BEAKER) 270 mg/dL 70-110 TESTED AT [address] (test vlag=8413) [place] [address] POCT-GLUCOSE [id number] 11:22:00 Test Item Value Reference Range Comments POC-GLUCOSE METER (BEAKER) 347 mg/dL 70-110 Notified JORDON STAPLETON/TESTED AT [facility] (test hhid=6985) [address] [place], [place] [address] POCT-GLUCOSE [id number] 08:31:00 Test Item Value Reference Range Comments POC-GLUCOSE METER (BEAKER) 280 mg/dL 70-110 TESTED AT [address] (test gtyj=4228) [place] [address] POCT-GLUCOSE [id number] 06:03:00 Test Item Value Reference Range Comments POC-GLUCOSE METER (BEAKER) 277 mg/dL 70-110 TESTED AT [address] (test ircp=2719) [place] [address] POCT-GLUCOSE [id number] 22:13:00 Test Item Value Reference Range Comments POC-GLUCOSE METER (BEAKER) 404 mg/dL 70-110 TESTED AT [address] (test xyyp=9608) [facility] [address] POCT-GLUCOSE [id number] 17:49:00 Test Item Value Reference Range Comments POC-GLUCOSE METER (BEAKER) 485 mg/dL 70-110 Notified JORDON STAPLETON/TESTED AT [facility] (test qjnh=1150) [address] [facility] [address] POCT-GLUCOSE [id number] 11:49:00 Test Item Value Reference Range Comments POC-GLUCOSE METER (BEAKER) 142 mg/dL 70-[address] [facility] [address] [facility] (test brvf=1655) [facility] [address] CBC W/PLT COUNT & AUTO [id number] 08:39:00 Test Item Value Reference Range Comments WHITE BLOOD CELL COUNT (BEAKER) (test utvd=232) 9.2 K/ L 4.0-10.0 RED BLOOD CELL COUNT (BEAKER) (test kktw=081) 4.24 M/ L 4.00-5.00 HEMOGLOBIN (BEAKER) (test pygt=994) 11.6 GM/DL 12.0-15.0 HEMATOCRIT (BEAKER) (test iago=808) 37.7 % 36.0-45.0 MEAN CORPUSCULAR VOLUME (BEAKER) (test aryd=831) 89.0 fL 82.0-99.0 MEAN CORPUSCULAR HEMOGLOBIN (BEAKER) (test 27.4 pg 27.0-33.0 dggh=540) MEAN CORPUSCULAR HEMOGLOBIN CONC (BEAKER) (test 30.8 GM/DL 32.0-36.0 knkb=330) RED CELL DISTRIBUTION WIDTH (BEAKER) (test 14.3 % 10.3-14.2 iapr=415) PLATELET COUNT (BEAKER) (test jnez=739) 345 K/CU MM 150-430 MEAN PLATELET VOLUME (BEAKER) (test wkqg=587) 9.3 fL 6.5-10.5 NUCLEATED RED BLOOD CELLS (BEAKER) (test 0 /100 WBC 0-0 zbqc=290) NEUTROPHILS RELATIVE PERCENT (BEAKER) (test 69 % zpmz=106) LYMPHOCYTES RELATIVE PERCENT (BEAKER) (test 22 % mrfo=994) MONOCYTES RELATIVE PERCENT (BEAKER) (test 7 % lufl=265) EOSINOPHILS RELATIVE PERCENT (BEAKER) (test 3 % hxsn=166) BASOPHILS RELATIVE PERCENT (BEAKER) (test 0 % gcjg=918) NEUTROPHILS ABSOLUTE COUNT (BEAKER) (test 6.30 K/ L 1.80-8.00 rkeg=230) LYMPHOCYTES ABSOLUTE COUNT (BEAKER) (test 2.00 K/ L 1.48-4.50 wcxk=219) MONOCYTES ABSOLUTE COUNT (BEAKER) (test 0.61 K/ L 0.00-1.30 jpcu=218) EOSINOPHILS ABSOLUTE COUNT (BEAKER) (test 0.26 K/ L 0.00-0.50 lrls=784) BASOPHILS ABSOLUTE COUNT (BEAKER) (test 0.03 K/ L 0.00-0.20 kzfk=863) 0.00POCT-GLUCOSE [id number] 08:05:00 Test Item Value Reference Range Comments POC-GLUCOSE METER (BEAKER) 380 mg/dL 70-110 Notified JORDON STAPLETON/TESTED AT [facility] (test mcty=4685) [address] [facility] [address] COMPREHENSIVE METABOLIC [id number] 07:44:00 Test Item Value Reference Range Comments TOTAL PROTEIN (BEAKER) 7.1 gm/dL 6.0-8.3 (test bbbs=897) ALBUMIN (BEAKER) (test 3.0 g/dL 3.5-5.0 uluq=8685) ALKALINE PHOSPHATASE 119 U/L 40-150 (BEAKER) (test nqug=116) BILIRUBIN TOTAL (BEAKER) 0.1 mg/dL 0.2-1.2 (test avuy=161) SODIUM (BEAKER) (test 135 meq/L 136-145 enwd=220) POTASSIUM (BEAKER) (test 3.8 meq/L 3.5-5.1 ocdu=757) CHLORIDE (BEAKER) (test 99 meq/L 98-107 sohy=751) CO2 (BEAKER) (test 27 meq/L 22-29 ovzs=552) BLOOD UREA NITROGEN 3 mg/dL 7-21 (BEAKER) (test aozv=053) CREATININE (BEAKER) (test 0.77 mg/dL 0.57-1.25 jykh=067) GLUCOSE RANDOM (BEAKER) 549 mg/dL 70-105 (test ucqp=678) CALCIUM (BEAKER) (test 8.8 mg/dL 8.4-10.2 qxhk=039) AST (SGOT) (BEAKER) (test 14 U/L 5-34 paro=087) ALT (SGPT) (BEAKER) (test 10 U/L 6-55 atpo=245) EGFR (BEAKER) (test 112 mL/min/1.73 sq ESTIMATED GFR IS NOT hpje=1902) m ACCURATE CREATININE CLEARANCE IN PREDICTING GLOMERULAR FILTRATION RATE. ESTIMATED GFR IS NOT APPLICABLE FOR DIALYSIS PATIENTS. [id number] 07:41:00 Test Item Value Reference Range Comments FERRITIN (BEAKER) (test aass=504) 126 ng/mL 5-275 Effective 09/11/2014: Reference Range ChangeNew: Male 5-275 Previous: Male 22-322 Female 5-275 Female 10-291TSH/FREE T4 IF [id number] 07:41:00 Test Item Value Reference Range Comments THYROID STIMULATING HORMONE (BEAKER) (test 1.94 uIU/mL 0.35-4.94 zsfz=611) [id number] 07:33:00 Test Item Value Reference Range Comments MAGNESIUM (BEAKER) (test jyfd=426) 1.3 mg/dL 1.6-2.6 LIPID [id number] 07:33:00 Test Item Value Reference Range Comments TRIGLYCERIDES (BEAKER) (test tihu=172) 115 mg/dL CHOLESTEROL (BEAKER) (test ohhr=833) 135 mg/dL HDL CHOLESTEROL (BEAKER) (test wysb=692) 48 mg/dL LDL CHOLESTEROL CALCULATED (BEAKER) (test 64 mg/dL dhjr=113) Triglyceride Reference Range: Low Risk <150 Borderline 150- 199 High Risk 200-499 Very High Risk >=500Cholesterol Reference Range: Low Risk <200 Borderline 200-239 High Risk > 240HDL Cholesterol Reference Range: Low Risk >=60 High Risk <40LDL Cholesterol Reference Range: Optimal <100 Near Optimal 100-129 Borderline 130-159 High 160-189 Very High >=[id number] 07:33:00 Test Item Value Reference Range Comments PREALBUMIN (BEAKER) (test ysgm=160) 13 mg/dL 14-45 IRON, TIBC, % SAT. (WITHOUT FERRITIN)2017-04-29 07:33:00 Test Item Value Reference Range Comments IRON (BEAKER) (test tphd=602) 35 ug/dL 40-160 TOTAL IRON BINDING CAPACITY (BEAKER) (test 310 ug/dL 250-450 tunb=315) IRON % SATURATION (2) (BEAKER) (test oyoj=1331) 11 % 20-55 [id number] 07:24:00 Test Item Value Reference Range Comments PROTIME (BEAKER) (test wmaw=091) 13.3 seconds 11.7-14.7 INR (BEAKER) (test ahgf=192) 1.0 <=5.9 PARTIAL THROMBOPLASTIN TIME (BEAKER) (test 35.2 seconds 22.5-36.0 miuq=554) RECOMMENDED COUMADIN/WARFARIN INR THERAPY RANGESSTANDARD DOSE: 2.0 - 3.0 Includes: PROPHYLAXIS forvenous thrombosis, systemic embolization; TREATMENT for venous thrombosis and/or pulmonary embolus.HIGH RISK: Target INR is 2.5-3.5 for patients with mechanical heart valves.POCT-GLUCOSE [id number] 21:48:00 Test Item Value Reference Range Comments POC-GLUCOSE METER (BEAKER) 289 mg/dL 70-[address] [facility] [address] [place] [address] (test xaku=1016) [place] [address] POCT-GLUCOSE [id number] 18:49:00 Test Item Value Reference Range Comments POC-GLUCOSE METER (BEAKER) 492 mg/dL 70-[address] [facility] [address] [place] [address] (test jpcm=4329) [place] [address] CF RESPIRATORY [id number] 06:58:00 Test Item Value Reference Range Comments CULTURE (BEAKER) (test PSEUDOMONAS 1+ Pseudomonas cxrw=9246) AERUGINOSA aeruginosa Amikacin (test code=1) Susceptible 0-16 , Resistant <0 or >16 Ampicillin (test code=26) Ampicillin + Sulbactam (test code=6) Aztreonam (test code=32) Susceptible 0-8 , Resistant <0 or >8 Cefazolin (test code=9) Cefepime (test code=51) Susceptible 0-8 , Resistant <0 or >8 Ceftazidime (test Susceptible 0-8 , code=27) Resistant <0 or >8 Ceftriaxone (test code=52) Ciprofloxacin (test Susceptible 0-1 , code=7) Resistant <0 or >1 Doripenem (test bssj=962) Susceptible 0-2 , Resistant <0 or >2 Ertapenem (test code=38) Gentamicin (test code=18) Susceptible 0-4 , Resistant <0 or >4 Imipenem (test code=19) Susceptible 0-2 , Resistant <0 or >2 Levofloxacin (test Susceptible 0-2 , code=22) Resistant <0 or >2 Meropenem (test code=34) Susceptible 0-2 , Resistant <0 or >2 Minocycline (test code=35) Nitrofurantoin (test code=23) Piperacillin (test Susceptible 0-16 , code=24) Resistant <0 or >16 Piperacillin + Tazobactam Susceptible 0-16 , (test code=29) Resistant <0 or >16 Tetracycline (test code=2) Ticarcillin + Clavulanic Acid (test code=80) Tigecycline (test ufsy=949) Tobramycin (test code=25) Susceptible 0-4 , Resistant <0 or >4 Trimethoprim + Sulfamethoxazole (test code=47) CULTURE (BEAKER) (test PSEUDOMONAS 2+ Pseudomonas ufsl=9344) AERUGINOSA aeruginosa (MUCOID-PHENOTYPE) (Mucoid-phenotype) Amikacin (test code=1) Susceptible 0-16 , Resistant <0 or >16 Ampicillin (test ptix=949) Ampicillin + Sulbactam (test code=62) Aztreonam (test code=32) Susceptible 0-8 , Resistant <0 or >8 Cefazolin (test code=92) Cefepime (test code=51) Susceptible 0-8 , Resistant <0 or >8 Ceftazidime (test Susceptible 0-8 , code=27) Resistant <0 or >8 Ceftriaxone (test dhcr=413) Ciprofloxacin (test Susceptible 0-1 , code=7) Resistant <0 or >1 Doripenem (test eojr=043) Susceptible 0-2 , Resistant <0 or >2 Ertapenem (test ybaw=783) Gentamicin (test code=18) Susceptible 0-4 , Resistant <0 or >4 Imipenem (test code=19) Levofloxacin (test Susceptible 0-2 , code=22) Resistant <0 or >2 Meropenem (test code=34) Minocycline (test pwir=914) Nitrofurantoin (test vdeu=747) Piperacillin (test Susceptible 0-16 , code=24) Resistant <0 or >16 Piperacillin + Tazobactam (test code=29) Tetracycline (test code=22) Ticarcillin + Clavulanic Acid (test ybjy=152) Tigecycline (test qdxf=6984) Tobramycin (test code=25) Susceptible 0-4 , Resistant <0 or >4 Trimethoprim + Sulfamethoxazole (test mawj=229) 1+ Normal respiratory derick presentFUNGUS CULTURE + [id number] 11:05:00 Test Item Value Reference Range Comments CULTURE ([facility]) (test oxzu=3419) 1+ Clau glabrata FUNGUS SMEAR ([facility]) (test No fungi seen rojw=3362) POCT-GLUCOSE [id number] 12:28:00 Test Item Value Reference Range Comments POC-GLUCOSE METER (BEAKER) 112 mg/dL 70-110 TESTED AT [address] (test usth=6990) [place] [address] POCT-GLUCOSE [id number] 08:33:00 Test Item Value Reference Range Comments POC-GLUCOSE METER (BEAKER) 144 mg/dL 70-110 TESTED AT [address] (test tmqy=6443) [place] [address] BUN AND [id number] 05:40:00 Test Item Value Reference Range Comments BLOOD UREA NITROGEN 17 mg/dL 7-21 (BEAKER) (test cvms=818) CREATININE (AKER) (test 0.60 mg/dL 0.57-1.25 ksyw=665) EGFR (AKER) (test 149 mL/min/1.73 sq m ESTIMATED GFR IS NOT kdbd=1493) ACCURATE CREATININE CLEARANCE IN PREDICTING GLOMERULAR FILTRATION RATE. ESTIMATED GFR IS NOT APPLICABLE FOR DIALYSIS PATIENTS. POCT-GLUCOSE [id number] 21:09:00 Test Item Value Reference Range Comments POC-GLUCOSE METER (BEAKER) 154 mg/dL 70-110 TESTED AT [address] (test scpx=3744) [place] [address] POCT-GLUCOSE [id number] 17:37:00 Test Item Value Reference Range Comments POC-GLUCOSE METER (BEAKER) 176 mg/dL 70-110 TESTED AT [address] (test kmyk=0629) [place] [address] POCT-GLUCOSE [id number] 13:59:00 Test Item Value Reference Range Comments POC-GLUCOSE METER (BEAKER) 126 mg/dL 70-110 TESTED AT [address] (test bplw=1378) [place] [address] POCT-GLUCOSE [id number] 11:39:00 Test Item Value Reference Range Comments POC-GLUCOSE METER (BEAKER) 113 mg/dL 70-110 TESTED AT [address] (test mrls=1601) [place] [address] POCT-GLUCOSE [id number] 08:59:00 Test Item Value Reference Range Comments POC-GLUCOSE METER (BEAKER) 99 mg/dL 70-110 TESTED AT [address] (test zjfg=6287) [place] [address] BUN AND [id number] 06:11:00 Test Item Value Reference Range Comments BLOOD UREA NITROGEN 18 mg/dL 7-21 (BEAKER) (test iaru=500) CREATININE (BEAKER) (test 0.65 mg/dL 0.57-1.25 rvks=678) EGFR (BEAKER) (test 136 mL/min/1.73 sq m ESTIMATED GFR IS NOT gjso=1786) ACCURATE CREATININE CLEARANCE IN PREDICTING GLOMERULAR FILTRATION RATE. ESTIMATED GFR IS NOT APPLICABLE FOR DIALYSIS PATIENTS. POCT-GLUCOSE [id number] 21:43:00 Test Item Value Reference Range Comments POC-GLUCOSE METER (BEAKER) 110 mg/dL 70-110 TESTED AT [address] (test hnct=4592) [place] [address] POCT-GLUCOSE [id number] 18:34:00 Test Item Value Reference Range Comments POC-GLUCOSE METER (BEAKER) 336 mg/dL 70-110 TESTED AT [address] (test vjjp=7181) [place] [address] POCT-GLUCOSE [id number] 17:53:00 Test Item Value Reference Range Comments POC-GLUCOSE METER (BEAKER) 150 mg/dL 70-110 TESTED AT [address] (test haqo=8989) [place] [address] POCT-GLUCOSE [id number] 12:04:00 Test Item Value Reference Range Comments POC-GLUCOSE METER (BEAKER) 295 mg/dL 70-110 TESTED AT [address] (test cqik=3947) [place] [address] POCT-GLUCOSE [id number] 09:25:00 Test Item Value Reference Range Comments POC-GLUCOSE METER (BEAKER) 52 mg/dL 70-110 Notified JORDON STAPLETON/TESTED AT [facility] (test yjgw=0098) [address] [place] [id number] BASIC METABOLIC [id number] 06:59:00 Test Item Value Reference Range Comments SODIUM (BEAKER) (test 138 meq/L 136-145 glqi=515) POTASSIUM (BEAKER) (test 3.6 meq/L 3.5-5.1 uahx=927) CHLORIDE (BEAKER) (test 103 meq/L 98-107 ucif=241) CO2 (BEAKER) (test 27 meq/L 22-29 jcvc=757) BLOOD UREA NITROGEN 23 mg/dL 7-21 (BEAKER) (test wvju=816) CREATININE (BEAKER) (test 0.69 mg/dL 0.57-1.25 homn=481) GLUCOSE RANDOM (BEAKER) 59 mg/dL 70-105 (test jxxd=045) CALCIUM (BEAKER) (test 7.6 mg/dL 8.4-10.2 ubhk=948) EGFR (BEAKER) (test 127 mL/min/1.73 sq m ESTIMATED GFR IS NOT aqqm=7953) ACCURATE CREATININE CLEARANCE IN PREDICTING GLOMERULAR FILTRATION RATE. ESTIMATED GFR IS NOT APPLICABLE FOR DIALYSIS PATIENTS. BLOOD [id number] 00:00:00 Test Item Value Reference Range Comments CULTURE (BEAKER) (test jayk=4404) No growth in 5 days BLOOD [id number] 00:00:00 Test Item Value Reference Range Comments CULTURE (BEAKER) (test xysg=3202) No growth in 5 days POCT-GLUCOSE [id number] 22:01:00 Test Item Value Reference Range Comments POC-GLUCOSE METER (BEAKER) 177 mg/dL 70-110 TESTED AT [address] (test mlcn=8963) [facility] [address] POCT-GLUCOSE [id number] 18:32:00 Test Item Value Reference Range Comments POC-GLUCOSE METER (BEAKER) 118 mg/dL 70-110 TESTED AT [address] (test pdpn=5723) [place] [address] POCT-GLUCOSE [id number] 17:29:00 Test Item Value Reference Range Comments POC-GLUCOSE METER (BEAKER) 69 mg/dL 70-110 TESTED AT [address] (test hhoc=3220) [facility] [address] POCT-GLUCOSE [id number] 14:12:00 Test Item Value Reference Range Comments POC-GLUCOSE METER (BEAKER) 141 mg/dL 70-110 TESTED AT [address] (test yjjl=7656) [facility] [address] POCT-GLUCOSE [id number] 10:01:00 Test Item Value Reference Range Comments POC-GLUCOSE METER (BEAKER) 220 mg/dL 70-110 TESTED AT [address] (test acoq=6381) [facility] [address] POCT-GLUCOSE [id number] 08:51:00 Test Item Value Reference Range Comments POC-GLUCOSE METER (BEAKER) 220 mg/dL 70-110 TESTED AT [address] (test apga=2549) [place] [address] POCT-GLUCOSE [id number] 21:45:00 Test Item Value Reference Range Comments POC-GLUCOSE METER (BEAKER) 306 mg/dL 70-110 TESTED AT [address] (test ojri=8597) [place] [address] POCT-GLUCOSE [id number] 20:06:00 Test Item Value Reference Range Comments POC-GLUCOSE METER (BEAKER) 392 mg/dL 70-110 TESTED AT [address] (test afrr=2051) [place] [address] POCT-GLUCOSE [id number] 15:28:00 Test Item Value Reference Range Comments POC-GLUCOSE METER (BEAKER) 403 mg/dL 70-110 Notified RN or MD Patient (test iyvs=7571) refused repeat test/TESTED AT [place] [address] [id number] 12:43:00 Test Item Value Reference Range Comments BLOOD UREA NITROGEN (BEAKER) (test kcsf=832) 18 mg/dL 7- [id number] 12:43:00 Test Item Value Reference Range Comments CREATININE (BEAKER) (test 0.84 mg/dL 0.57-1.25 ydja=556) EGFR (BEAKER) (test 101 mL/min/1.73 sq m ESTIMATED GFR IS NOT zehd=3796) ACCURATE CREATININE CLEARANCE IN PREDICTING GLOMERULAR FILTRATION RATE. ESTIMATED GFR IS NOT APPLICABLE FOR DIALYSIS PATIENTS. POCT-GLUCOSE [id number] 12:25:00 Test Item Value Reference Range Comments POC-GLUCOSE METER (BEAKER) 382 mg/dL 70-110 TESTED AT [address] (test skfl=2021) [place] [address] POCT-GLUCOSE [id number] 08:23:00 Test Item Value Reference Range Comments POC-GLUCOSE METER (BEAKER) 95 mg/dL 70-110 TESTED AT [address] (test haoi=1691) [place] [address] POCT-GLUCOSE [id number] 22:45:00 Test Item Value Reference Range Comments POC-GLUCOSE METER (BEAKER) 153 mg/dL 70-110 TESTED AT [address] (test hfyo=9271) [place] [address] POCT-GLUCOSE [id number] 17:40:00 Test Item Value Reference Range Comments POC-GLUCOSE METER (BEAKER) 316 mg/dL 70-110 Notified RN or MD Patient (test gztp=4176) refused repeat test/TESTED AT [place] [address] POCT-GLUCOSE [id number] 12:12:00 Test Item Value Reference Range Comments POC-GLUCOSE METER (BEAKER) 279 mg/dL 70-110 TESTED AT [address] (test jeki=2241) [place] [address] RESPIRATORY PANEL [id number] 11:36:00 Test Item Value Reference Range Comments HUMAN METAPNEUMOVIRUS (BEAKER) (test Not detected Not detected, Inconclusive fivj=7637) RHINOVIRUS (BEAKER) (test zrwo=3382) Not detected Not detected, Inconclusive INFLUENZA A (BEAKER) (test Not detected Not detected, Inconclusive oami=3916) INFLUENZA A SUBTYPE H1 (BEAKER) Not detected Not detected, Inconclusive (test nyzf=2040) INFLUENZA A SUBTYPE H3 (BEAKER) Not detected Not detected, Inconclusive (test cscr=3803) INFLUENZA A SUBTYPE H1-2009 (BEAKER) Not detected Not detected, Inconclusive (test ipmc=6665) INFLUENZA B (BEAKER) (test Not detected Not detected, Inconclusive fwkz=0949) RESPIRATORY SYNCYTIAL VIRUS (BEAKER) Not detected Not detected, Inconclusive (test gmbp=5448) PARAINFLUENZA VIRUS 1 (BEAKER) (test Not detected Not detected, Inconclusive lggn=5664) PARAINFLUENZA VIRUS 2 (BEAKER) (test Not detected Not detected, Inconclusive otlz=2465) PARAINFLUENZA VIRUS 3 (BEAKER) (test Not detected Not detected, Inconclusive ogvp=5080) PARAINFLUENZA VIRUS 4 (BEAKER) (test Not detected Not detected, Inconclusive faie=5633) ADENOVIRUS (BEAKER) (test njnt=2669) Not detected Not detected, Inconclusive CORONAVIRUS 229E (BEAKER) (test Not detected Not detected, Inconclusive iidy=9133) CORONAVIRUS HKU1 (BEAKER) (test Not detected Not detected, Inconclusive banf=9353) CORONAVIRUS NL63 (BEAKER) (test Not detected Not detected, Inconclusive hfjy=4247) CORONAVIRUS OC43 (BEAKER) (test Not detected Not detected, Inconclusive pwzl=3407) BORDETELLA PERTUSSIS (BEAKER) (test Not detected Not detected, Inconclusive qchz=1338) CHLAMYDOPHILA PNEUMONIAE (BEAKER) Not detected Not detected, Inconclusive (test jhzt=1305) MYCOPLASMA PNEUMONIAE (BEAKER) (test Not detected Not detected, Inconclusive fozs=4570) POCT-GLUCOSE [id number] 08:37:00 Test Item Value Reference Range Comments POC-GLUCOSE METER (BEAKER) 302 mg/dL 70-110 Verify with Lab draw/TESTED AT (test jzte=4213) [place] [address] [id number] 07:38:00 Test Item Value Reference Range Comments BLOOD UREA NITROGEN (BEAKER) (test htfe=077) 13 mg/dL 7-21 [id number] 07:38:00 Test Item Value Reference Range Comments CREATININE (BEAKER) (test 0.83 mg/dL 0.57-1.25 xbnb=434) EGFR (BEAKER) (test 102 mL/min/1.73 sq m ESTIMATED GFR IS NOT pill=0363) ACCURATE CREATININE CLEARANCE IN PREDICTING GLOMERULAR FILTRATION RATE. ESTIMATED GFR IS NOT APPLICABLE FOR DIALYSIS PATIENTS. POCT-GLUCOSE [id number] 23:25:00 Test Item Value Reference Range Comments POC-GLUCOSE METER (BEAKER) 376 mg/dL 70-110 TESTED AT [address] (test vjjg=6102) [place] [address] POCT-GLUCOSE [id number] 21:02:00 Test Item Value Reference Range Comments POC-GLUCOSE METER (BEAKER) 339 mg/dL 70-110 Notified JORDON STAPLETON/TESTED AT [facility] (test unys=9837) [address] [place] [address] SPIN/CONCENTRATION [id number] 16:49:00 Test Item Value Reference Range Comments CONCENTRATION CHARGED (BEAKER) (test gvcf=7635) Done URINE [id number] 14:16:00 Test Item Value Reference Range Comments CULTURE (BEAKER) (test lkin=8587) See comment <10,000 col/mL YEAST>100,000 col/mL skin floraPOCT-GLUCOSE [id number] 12:23:00 Test Item Value Reference Range Comments POC-GLUCOSE METER (BEAKER) 259 mg/dL 70-110 TESTED AT [address] (test tmfq=9768) [place] [address] [id number] 10:26:00 Test Item Value Reference Range Comments CREATININE (BEAKER) (test 0.77 mg/dL 0.57-1.25 allx=694) EGFR (BEAKER) (test 112 mL/min/1.73 sq m ESTIMATED GFR IS NOT eemq=6754) ACCURATE CREATININE CLEARANCE IN PREDICTING GLOMERULAR FILTRATION RATE. ESTIMATED GFR IS NOT APPLICABLE FOR DIALYSIS PATIENTS. [id number] 10:08:00 Test Item Value Reference Range Comments BLOOD UREA NITROGEN (BEAKER) (test exzp=921) 17 mg/dL 7-21 POCT-GLUCOSE [id number] 09:04:00 Test Item Value Reference Range Comments POC-GLUCOSE METER (BEAKER) 173 mg/dL 70-110 TESTED AT [address] (test szby=9385) [place] [address] POCT-GLUCOSE [id number] 21:10:00 Test Item Value Reference Range Comments POC-GLUCOSE METER (BEAKER) 151 mg/dL 70-110 TESTED AT [address] (test tlmp=4379) [place] [address] SCREEN, [id number] 20:03:00 Test Item Value Reference Range Comments TEST URINE (BEAKER) (test qvoh=522) Negative POCT-GLUCOSE [id number] 17:01:00 Test Item Value Reference Range Comments POC-GLUCOSE METER (BEAKER) 252 mg/dL 70-110 TESTED AT [address] (test vtfe=2513) [place] [address] BASIC METABOLIC [id number] 16:19:00 Test Item Value Reference Range Comments SODIUM (BEAKER) (test 138 meq/L 136-145 irbq=616) POTASSIUM (BEAKER) (test 3.8 meq/L 3.5-5.1 nyfh=342) CHLORIDE (BEAKER) (test 105 meq/L 98-107 pext=446) CO2 (BEAKER) (test 21 meq/L 22-29 xnfw=099) BLOOD UREA NITROGEN 9 mg/dL 7-21 (BEAKER) (test jydi=302) CREATININE (BEAKER) (test 0.94 mg/dL 0.57-1.25 bhfo=410) GLUCOSE RANDOM (BEAKER) 421 mg/dL 70-105 (test egus=597) CALCIUM (BEAKER) (test 8.5 mg/dL 8.4-10.2 riuq=758) EGFR (BEAKER) (test 89 mL/min/1.73 sq m ESTIMATED GFR IS NOT volt=5743) ACCURATE CREATININE CLEARANCE IN PREDICTING GLOMERULAR FILTRATION RATE. ESTIMATED GFR IS NOT APPLICABLE FOR DIALYSIS PATIENTS. [id number] 16:15:00 Test Item Value Reference Range Comments MAGNESIUM (BEAKER) (test sijb=045) 1.4 mg/dL 1.6-2.6 POCT-GLUCOSE [id number] 11:37:00 Test Item Value Reference Range Comments POC-GLUCOSE METER (BEAKER) > mg/dL 70-110 OUTSIDE MEASURING RANGENotified RN (test vnex=7247) MD/TESTED AT [place] [address] HEMOGLOBIN [id number] 11:03:00 Test Item Value Reference Range Comments HEMOGLOBIN A1C (BEAKER) (test vjxa=950) 12.5 % 4.3-6.1 POCT-GLUCOSE [id number] 08:22:00 Test Item Value Reference Range Comments POC-GLUCOSE METER (BEAKER) 434 mg/dL 70-110 Notified JORDON MD/TESTED AT [facility] (test apjs=0031) [address] [place] [address] COMPREHENSIVE METABOLIC [id number] 06:58:00 Test Item Value Reference Range Comments TOTAL PROTEIN (BEAKER) 7.7 gm/dL 6.0-8.3 (test jyrm=608) ALBUMIN (BEAKER) (test 3.1 g/dL 3.5-5.0 txss=1059) ALKALINE PHOSPHATASE 135 U/L 40-150 (BEAKER) (test hxdm=378) BILIRUBIN TOTAL (BEAKER) 0.1 mg/dL 0.2-1.2 (test prbb=682) SODIUM (BEAKER) (test 135 meq/L 136-145 zjkq=825) POTASSIUM (BEAKER) (test 4.6 meq/L 3.5-5.1 hcnw=574) CHLORIDE (BEAKER) (test 100 meq/L 98-107 kqbn=535) CO2 (BEAKER) (test 24 meq/L 22-29 pdzc=734) BLOOD UREA NITROGEN 11 mg/dL 7-21 (BEAKER) (test biaa=777) CREATININE (BEAKER) (test 0.94 mg/dL 0.57-1.25 wvvk=075) GLUCOSE RANDOM (BEAKER) 533 mg/dL 70-105 (test itvt=480) CALCIUM (BEAKER) (test 8.4 mg/dL 8.4-10.2 okxp=318) AST (SGOT) (BEAKER) (test 16 U/L 5-34 ubck=668) ALT (SGPT) (BEAKER) (test 22 U/L 6-55 cwny=159) EGFR (BEAKER) (test 89 mL/min/1.73 sq m ESTIMATED GFR IS NOT rhsw=8074) ACCURATE CREATININE CLEARANCE IN PREDICTING GLOMERULAR FILTRATION RATE. ESTIMATED GFR IS NOT APPLICABLE FOR DIALYSIS PATIENTS. [id number] 06:43:00 Test Item Value Reference Range Comments MAGNESIUM (BEAKER) (test cstw=182) 1.6 mg/dL 1.6-2.6 [id number] 06:30:00 Test Item Value Reference Range Comments PHOSPHORUS (BEAKER) (test xrxf=094) 2.9 mg/dL 2.3-4.7 GAMMA GLUTAMYL TRANSFERASE (GGT)2017-03-24 06:29:00 Test Item Value Reference Range Comments GAMMA GLUTAMYL TRANSFERASE (BEAKER) (test rmay=710) 28 U/L 9-64 CBC W/PLT COUNT & AUTO [id number] 06:11:00 Test Item Value Reference Range Comments WHITE BLOOD CELL COUNT (BEAKER) (test amux=530) 9.4 K/ L 4.0-10.0 RED BLOOD CELL COUNT (BEAKER) (test ctsy=553) 4.21 M/ L 4.00-5.00 HEMOGLOBIN (BEAKER) (test tpcb=990) 11.3 GM/DL 12.0-15.0 HEMATOCRIT (BEAKER) (test uwid=697) 37.0 % 36.0-45.0 MEAN CORPUSCULAR VOLUME (BEAKER) (test xztj=916) 87.8 fL 82.0-99.0 MEAN CORPUSCULAR HEMOGLOBIN (BEAKER) (test 26.8 pg 27.0-33.0 wfkm=888) MEAN CORPUSCULAR HEMOGLOBIN CONC (BEAKER) (test 30.5 GM/DL 32.0-36.0 kmkv=109) RED CELL DISTRIBUTION WIDTH (BEAKER) (test 14.1 % 10.3-14.2 jcwd=910) PLATELET COUNT (BEAKER) (test rveq=207) 321 K/CU MM 150-430 MEAN PLATELET VOLUME (BEAKER) (test mzns=579) 9.0 fL 6.5-10.5 NUCLEATED RED BLOOD CELLS (BEAKER) (test 0 /100 WBC 0-0 chzj=153) NEUTROPHILS RELATIVE PERCENT (BEAKER) (test 93 % jond=587) LYMPHOCYTES RELATIVE PERCENT (BEAKER) (test 6 % usvo=795) MONOCYTES RELATIVE PERCENT (BEAKER) (test 1 % cllz=859) EOSINOPHILS RELATIVE PERCENT (BEAKER) (test 0 % chjo=206) BASOPHILS RELATIVE PERCENT (BEAKER) (test 0 % pfzg=044) NEUTROPHILS ABSOLUTE COUNT (BEAKER) (test 8.70 K/ L 1.80-8.00 kdiu=739) LYMPHOCYTES ABSOLUTE COUNT (BEAKER) (test 0.60 K/ L 1.48-4.50 tyxe=169) MONOCYTES ABSOLUTE COUNT (BEAKER) (test 0.07 K/ L 0.00-1.30 auxy=526) EOSINOPHILS ABSOLUTE COUNT (BEAKER) (test 0.01 K/ L 0.00-0.50 hejc=731) BASOPHILS ABSOLUTE COUNT (BEAKER) (test 0.00 K/ L 0.00-0.20 skln=931) 0.00POCT-GLUCOSE [id number] 00:12:00 Test Item Value Reference Range Comments POC-GLUCOSE METER (BEAKER) 403 mg/dL 70-110 Notified JORDON STAPLETON/TESTED AT [facility] (test dkmm=6331) [address] [place] [address] URINALYSIS W/ [id number] 21:19:00 Test Item Value Reference Range Comments COLOR (BEAKER) (test hwwy=085) Light Yellow CLARITY (BEAKER) (test rymr=805) Clear SPECIFIC GRAVITY UA (BEAKER) (test 1.013 1.001-1.035 pcxo=336) PH UA (BEAKER) (test xmbo=246) 6.5 5.0-8.0 PROTEIN UA (BEAKER) (test apfz=504) 20 mg/dL Negative GLUCOSE UA (BEAKER) (test azat=147) >1000 mg/dL Negative KETONES UA (BEAKER) (test ddbh=475) Negative Negative BILIRUBIN UA (BEAKER) (test dral=259) Negative Negative BLOOD UA (BEAKER) (test wvlj=645) Negative Negative NITRITE UA (BEAKER) (test yohs=809) Negative Negative LEUKOCYTE ESTERASE UA (BEAKER) (test Negative Negative xzim=853) UROBILINOGEN UA (BEAKER) (test tlzk=666) 0.2 mg/dL 0.2-1.0 RBC UA (BEAKER) (test svrl=464) 1 /HPF WBC UA (BEAKER) (test ylnn=980) < /HPF SQUAMOUS EPITHELIAL (BEAKER) (test < /HPF typd=710) SOURCE(BEAKER) (test sgus=0664) Urine, Clean Catch POCT-GLUCOSE [id number] 19:36:00 Test Item Value Reference Range Comments POC-GLUCOSE METER (BEAKER) 405 mg/dL 70-110 Notified JORDON STAPLETON/TESTED AT [facility] (test srat=1850) [address] [place] [address] POCT-LACTIC ACID, [id number] 18:38:00 Test Item Value Reference Range Comments POC-LACTIC ACID, VENOUS 1.9 mmol/L 0.9-1.7 TESTED AT [place] [address] [facility] (test cobl=6245) [facility] [address] CREATINE KINASE (CK), TOTAL AND [id number] 18:36:00 Test Item Value Reference Range Comments CREATINE KINASE TOTAL (BEAKER) (test gber=684) 39 U/L 29-200 CREATINE KINASE-MB (BEAKER) (test ierl=129) 0.5 ng/mL 0.0-6.6 CREATINE KINASE-MB INDEX (BEAKER) (test notd=994) 1.3 % Effective 09/11/2014: CK-MB Reference Range ChangeNew: 0.0-6.6 Previous: 0.0- 4.9CK-MB Reference Range:<6.7 Normal6.7-10.0 Borderline>10.0 AbnormalTROPONIN [id number] 18:36:00 Test Item Value Reference Range Comments TROPONIN I (BEAKER) (test uxiw=962) < ng/mL 0.00-0.03 Effective 09/11/2014: Reference Range ChangeNew: 0.00-0.03 Previous 0.00- 0.15Troponin I (TnI) levels must be interpreted in the context of the presenting symptoms and the clinical findings. Elevated TnI levels indicate myocardial damage, but are not specific for ischemic heart disease. Elevated TnI levels are seen in patients with other cardiac conditions (including myocarditis and congestive heartfailure), and slight TnI elevations occur in patients with other conditions, including sepsis, renalfailure, acidosis, acute neurological disease, and persistent tachyarrhythmia.B-TYPE NATRIURETIC FACTOR ( BNP)2017-03-23 18:34:00 Test Item Value Reference Range Comments B-TYPE NATRIURETIC PEPTIDE (BEAKER) (test qgvo=100) 43 pg/mL 0-100 [id number] 18:28:00 Test Item Value Reference Range Comments MAGNESIUM (BEAKER) (test ykty=746) 1.7 mg/dL 1.6-2.6 BASIC METABOLIC [id number] 18:28:00 Test Item Value Reference Range Comments SODIUM (BEAKER) (test 139 meq/L 136-145 qder=217) POTASSIUM (BEAKER) (test 3.9 meq/L 3.5-5.1 jeoa=619) CHLORIDE (BEAKER) (test 105 meq/L 98-107 igso=711) CO2 (BEAKER) (test 25 meq/L 22-29 kuzq=521) BLOOD UREA NITROGEN 10 mg/dL 7-21 (BEAKER) (test fyli=313) CREATININE (BEAKER) (test 0.68 mg/dL 0.57-1.25 zrgo=063) GLUCOSE RANDOM (BEAKER) 163 mg/dL 70-105 (test lrza=778) CALCIUM (BEAKER) (test 9.2 mg/dL 8.4-10.2 vagv=073) EGFR (BEAKER) (test 129 mL/min/1.73 sq m ESTIMATED GFR IS NOT jygz=3300) ACCURATE CREATININE CLEARANCE IN PREDICTING GLOMERULAR FILTRATION RATE. ESTIMATED GFR IS NOT APPLICABLE FOR DIALYSIS PATIENTS. [id number] 18:24:00 Test Item Value Reference Range Comments PROTIME (BEAKER) (test qcga=570) 13.1 seconds 11.7-14.7 INR (BEAKER) (test pcxt=303) 1.0 <=5.9 PARTIAL THROMBOPLASTIN TIME (BEAKER) (test 32.9 seconds 22.5-36.0 hjka=105) RECOMMENDED COUMADIN/WARFARIN INR THERAPY RANGESSTANDARD DOSE: 2.0 - 3.0 Includes: PROPHYLAXIS forvenous thrombosis, systemic embolization; TREATMENT for venous thrombosis and/or pulmonary embolus.HIGH RISK: Target INR is 2.5-3.5 for patients with mechanical heart valves.CBC W/PLT COUNT & AUTO [id number] 18:16:00 Test Item Value Reference Range Comments WHITE BLOOD CELL COUNT (BEAKER) (test bxxe=022) 11.5 K/ L 4.0-10.0 RED BLOOD CELL COUNT (BEAKER) (test ubdr=424) 4.29 M/ L 4.00-5.00 HEMOGLOBIN (BEAKER) (test ohjk=880) 11.3 GM/DL 12.0-15.0 HEMATOCRIT (BEAKER) (test jnku=743) 37.0 % 36.0-45.0 MEAN CORPUSCULAR VOLUME (BEAKER) (test vqoe=058) 86.1 fL 82.0-99.0 MEAN CORPUSCULAR HEMOGLOBIN (BEAKER) (test 26.4 pg 27.0-33.0 fqov=077) MEAN CORPUSCULAR HEMOGLOBIN CONC (BEAKER) (test 30.7 GM/DL 32.0-36.0 scgw=418) RED CELL DISTRIBUTION WIDTH (BEAKER) (test 15.7 % 10.3-14.2 umxg=565) PLATELET COUNT (BEAKER) (test qdth=482) 364 K/CU MM 150-430 MEAN PLATELET VOLUME (BEAKER) (test aivq=656) 8.6 fL 6.5-10.5 NUCLEATED RED BLOOD CELLS (BEAKER) (test 0 /100 WBC 0-0 uhjx=645) NEUTROPHILS RELATIVE PERCENT (BEAKER) (test 65 % prcl=030) LYMPHOCYTES RELATIVE PERCENT (BEAKER) (test 23 % whfy=122) MONOCYTES RELATIVE PERCENT (BEAKER) (test 8 % cwve=791) EOSINOPHILS RELATIVE PERCENT (BEAKER) (test 4 % ygrg=336) BASOPHILS RELATIVE PERCENT (BEAKER) (test 1 % jujs=407) NEUTROPHILS ABSOLUTE COUNT (BEAKER) (test 7.52 K/ L 1.80-8.00 dncj=148) LYMPHOCYTES ABSOLUTE COUNT (BEAKER) (test 2.63 K/ L 1.48-4.50 drsq=835) MONOCYTES ABSOLUTE COUNT (BEAKER) (test 0.88 K/ L 0.00-1.30 gqnj=792) EOSINOPHILS ABSOLUTE COUNT (BEAKER) (test 0.44 K/ L 0.00-0.50 sveg=733) BASOPHILS ABSOLUTE COUNT (BEAKER) (test 0.07 K/ L 0.00-0.20 zocx=728) 0.00AFB CULTURE + [id number] 18:28:00 Test Item Value Reference Range Comments CULTURE (BEAKER) (test No acid-fast bacilli isolated wpfu=6319) in 42 days AFB SMEAR (BEAKER) (test No acid fast bacilli seen uzhw=746) AFB CULTURE + [id number] 12:13:00 Test Item Value Reference Range Comments CULTURE (BEAKER) (test No acid-fast bacilli isolated dguy=7773) in 42 days AFB SMEAR (BEAKER) (test No acid fast bacilli seen yeqk=890) FUNGUS CULTURE + [id number] 18:28:00 Test Item Value Reference Range Comments CULTURE (BEAKER) (test vkkq=7391) 2+ Clau albicans FUNGUS SMEAR (BEAKER) (test No fungi seen lfix=6298) CF RESPIRATORY [id number] 04:50:00 Test Item Value Reference Range Comments CULTURE (BEAKER) (test PSEUDOMONAS 2+ Pseudomonas imkn=9281) AERUGINOSA aeruginosa Amikacin (test code=1) Susceptible 0-16 , Resistant <0 or >16 Aztreonam (test Susceptible 0-8 , code=32) Resistant <0 or >8 Cefepime (test code=51) Susceptible 0-8 , Resistant <0 or >8 Ceftazidime (test Susceptible 0-8 , code=27) Resistant <0 or >8 Ciprofloxacin (test Susceptible 0-1 , code=7) Resistant <0 or >1 Doripenem (test Susceptible 0-2 , ahle=618) Resistant <0 or >2 Gentamicin (test Susceptible 0-4 , code=18) Resistant <0 or >4 Imipenem (test code=19) Susceptible 0-2 , Resistant <0 or >2 Levofloxacin (test Susceptible 0-2 , code=22) Resistant <0 or >2 Meropenem (test Susceptible 0-2 , code=34) Resistant <0 or >2 Piperacillin (test Susceptible 0-16 , code=24) Resistant <0 or >16 Piperacillin + Susceptible 0-16 , Tazobactam (test Resistant <0 or >16 code=29) Tobramycin (test Susceptible 0-4 , code=25) Resistant <0 or >4 CULTURE (AKER) (test PSEUDOMONAS 2+ Pseudomonas jrxu=55176) AERUGINOSA aeruginosaof a second type Amikacin (test code=1) Susceptible 0-16 , Resistant <0 or >16 Aztreonam (test Susceptible 0-8 , code=32) Resistant <0 or >8 Cefepime (test code=51) Susceptible 0-8 , Resistant <0 or >8 Ceftazidime (test Susceptible 0-8 , code=27) Resistant <0 or >8 Ciprofloxacin (test Susceptible 0-1 , code=7) Resistant <0 or >1 Doripenem (test Susceptible 0-2 , plzn=002) Resistant <0 or >2 Gentamicin (test Susceptible 0-4 , code=18) Resistant <0 or >4 Imipenem (test code=19) Susceptible 0-2 , Resistant <0 or >2 Levofloxacin (test Susceptible 0-2 , code=22) Resistant <0 or >2 Meropenem (test Susceptible 0-2 , code=34) Resistant <0 or >2 Piperacillin (test Susceptible 0-16 , code=24) Resistant <0 or >16 Piperacillin + Susceptible 0-16 , Tazobactam (test Resistant <0 or >16 code=29) Tobramycin (test Susceptible 0-4 , code=25) Resistant <0 or >4 2+ Normal respiratory derick presentBLOOD [id number] 18:00:00 Test Item Value Reference Range Comments CULTURE (BEAKER) (test bmrw=4085) No growth in 5 days BLOOD [id number] 18:00:00 Test Item Value Reference Range Comments CULTURE (BEAKER) (test uwgs=4681) No growth in 5 days POCT-GLUCOSE [id number] 12:39:00 Test Item Value Reference Range Comments POC-GLUCOSE METER (BEAKER) 352 mg/dL 70-[address] [facility] [address] [facility] (test vhbc=9286) [facility] [address] BASIC METABOLIC [id number] 10:03:00 Test Item Value Reference Range Comments SODIUM (BEAKER) (test 141 meq/L 136-145 gfhl=273) POTASSIUM (BEAKER) (test 3.7 meq/L 3.5-5.1 ziaj=379) CHLORIDE (BEAKER) (test 101 meq/L 98-107 oihf=823) CO2 (BEAKER) (test 31 meq/L 22-29 jjau=228) BLOOD UREA NITROGEN 7 mg/dL 7-21 (BEAKER) (test xoac=037) CREATININE (BEAKER) (test 0.57 mg/dL 0.57-1.25 mstc=013) GLUCOSE RANDOM (BEAKER) 87 mg/dL 70-105 (test jcch=293) CALCIUM (BEAKER) (test 8.4 mg/dL 8.4-10.2 yywa=835) EGFR (BEAKER) (test 158 mL/min/1.73 sq m ESTIMATED GFR IS NOT srzs=5806) ACCURATE CREATININE CLEARANCE IN PREDICTING GLOMERULAR FILTRATION RATE. ESTIMATED GFR IS NOT APPLICABLE FOR DIALYSIS PATIENTS. CBC W/PLT COUNT & AUTO [id number] 09:23:00 Test Item Value Reference Range Comments WHITE BLOOD CELL COUNT (BEAKER) (test avrk=339) 13.8 K/ L 4.0-10.0 RED BLOOD CELL COUNT (BEAKER) (test pygx=550) 3.83 M/ L 4.00-5.00 HEMOGLOBIN (BEAKER) (test gyxu=377) 10.5 GM/DL 12.0-15.0 HEMATOCRIT (BEAKER) (test iauu=523) 34.5 % 36.0-45.0 MEAN CORPUSCULAR VOLUME (BEAKER) (test zxas=007) 90.1 fL 82.0-99.0 MEAN CORPUSCULAR HEMOGLOBIN (BEAKER) (test 27.5 pg 27.0-33.0 guwo=540) MEAN CORPUSCULAR HEMOGLOBIN CONC (BEAKER) (test 30.6 GM/DL 32.0-36.0 qprq=206) RED CELL DISTRIBUTION WIDTH (BEAKER) (test 14.1 % 10.3-14.2 yclv=167) PLATELET COUNT (BEAKER) (test nmav=674) 354 K/CU MM 150-430 MEAN PLATELET VOLUME (BEAKER) (test pcah=597) 8.4 fL 6.5-10.5 NUCLEATED RED BLOOD CELLS (BEAKER) (test 0 /100 WBC 0-0 jibe=240) NEUTROPHILS RELATIVE PERCENT (BEAKER) (test 68 % kned=355) LYMPHOCYTES RELATIVE PERCENT (BEAKER) (test 19 % xnuv=709) MONOCYTES RELATIVE PERCENT (BEAKER) (test 10 % qqoy=406) EOSINOPHILS RELATIVE PERCENT (BEAKER) (test 3 % bvls=349) BASOPHILS RELATIVE PERCENT (BEAKER) (test 0 % iuvj=572) NEUTROPHILS ABSOLUTE COUNT (BEAKER) (test 9.41 K/ L 1.80-8.00 kkdu=989) LYMPHOCYTES ABSOLUTE COUNT (BEAKER) (test 2.64 K/ L 1.48-4.50 jnrm=243) MONOCYTES ABSOLUTE COUNT (BEAKER) (test 1.35 K/ L 0.00-1.30 sdmh=846) EOSINOPHILS ABSOLUTE COUNT (BEAKER) (test 0.37 K/ L 0.00-0.50 iiml=380) BASOPHILS ABSOLUTE COUNT (BEAKER) (test 0.03 K/ L 0.00-0.20 draz=067) 0.00POCT-GLUCOSE [id number] 08:55:00 Test Item Value Reference Range Comments POC-GLUCOSE METER (BEAKER) 82 mg/dL 70-110 TESTED AT [address] (test nath=8359) [facility] [address] POCT-GLUCOSE [id number] 21:23:00 Test Item Value Reference Range Comments POC-GLUCOSE METER (BEAKER) 264 mg/dL 70-110 TESTED AT [address] (test pzsh=1653) [place] [address] POCT-GLUCOSE [id number] 17:56:00 Test Item Value Reference Range Comments POC-GLUCOSE METER (BEAKER) 340 mg/dL 70-110 TESTED AT [address] (test bqum=7357) [place] [address] POCT-GLUCOSE [id number] 12:16:00 Test Item Value Reference Range Comments POC-GLUCOSE METER (BEAKER) 386 mg/dL 70-110 TESTED AT [address] (test plxd=1100) [place] [address] POCT-GLUCOSE [id number] 08:24:00 Test Item Value Reference Range Comments POC-GLUCOSE METER (BEAKER) 105 mg/dL 70-110 TESTED AT [address] (test bwyv=9240) [place] [address] BUN AND [id number] 06:44:00 Test Item Value Reference Range Comments BLOOD UREA NITROGEN 5 mg/dL 7-21 (BEAKER) (test vcsm=261) CREATININE (BEAKER) (test 0.56 mg/dL 0.57-1.25 nfge=167) EGFR (BEAKER) (test 161 mL/min/1.73 sq m ESTIMATED GFR IS NOT kufp=6727) ACCURATE CREATININE CLEARANCE IN PREDICTING GLOMERULAR FILTRATION RATE. ESTIMATED GFR IS NOT APPLICABLE FOR DIALYSIS PATIENTS. POCT-GLUCOSE [id number] 23:49:00 Test Item Value Reference Range Comments POC-GLUCOSE METER (BEAKER) 211 mg/dL 70-110 TESTED AT [address] (test tzii=9691) [place] [address] POCT-GLUCOSE [id number] 19:36:00 Test Item Value Reference Range Comments POC-GLUCOSE METER (BEAKER) 288 mg/dL 70-110 TESTED AT [address] (test uswi=3028) [place] [address] BUN AND [id number] 18:20:00 Test Item Value Reference Range Comments BLOOD UREA NITROGEN 8 mg/dL 7-21 (BEAKER) (test nqcr=333) CREATININE (BEAKER) (test 0.77 mg/dL 0.57-1.25 ltut=069) EGFR (BEAKER) (test 112 mL/min/1.73 sq m ESTIMATED GFR IS NOT npta=7651) ACCURATE CREATININE CLEARANCE IN PREDICTING GLOMERULAR FILTRATION RATE. ESTIMATED GFR IS NOT APPLICABLE FOR DIALYSIS PATIENTS. POCT-GLUCOSE [id number] 17:09:00 Test Item Value Reference Range Comments POC-GLUCOSE METER (BEAKER) 388 mg/dL 70-110 TESTED AT [address] (test nyqu=9444) [place] [address] POCT-GLUCOSE [id number] 13:54:00 Test Item Value Reference Range Comments POC-GLUCOSE METER (BEAKER) 445 mg/dL 70-110 TESTED AT [address] (test yveo=1981) [place] [address] POCT-GLUCOSE [id number] 11:39:00 Test Item Value Reference Range Comments POC-GLUCOSE METER (BEAKER) 349 mg/dL 70-110 TESTED AT [address] (test zqfg=2854) [place] [address] POCT-GLUCOSE [id number] 09:08:00 Test Item Value Reference Range Comments POC-GLUCOSE METER (BEAKER) 52 mg/dL 70-110 TESTED AT [address] (test ioqk=4787) [place] [address] POCT-GLUCOSE [id number] 22:14:00 Test Item Value Reference Range Comments POC-GLUCOSE METER (BEAKER) 99 mg/dL 70-110 TESTED AT [address] (test eyke=0980) [place] [address] POCT-GLUCOSE [id number] 18:07:00 Test Item Value Reference Range Comments POC-GLUCOSE METER (BEAKER) 209 mg/dL 70-110 TESTED AT [address] (test ithx=0749) [place] [address] POCT-GLUCOSE [id number] 12:13:00 Test Item Value Reference Range Comments POC-GLUCOSE METER (BEAKER) 101 mg/dL 70-110 TESTED AT [address] (test ufhw=5087) [place] [address] POCT-GLUCOSE [id number] 08:28:00 Test Item Value Reference Range Comments POC-GLUCOSE METER (BEAKER) 311 mg/dL 70-110 TESTED AT [address] (test rwrb=4552) [place] [address] BASIC METABOLIC [id number] 04:01:00 Test Item Value Reference Range Comments SODIUM (BEAKER) (test 135 meq/L 136-145 icqw=853) POTASSIUM (BEAKER) (test 4.2 meq/L 3.5-5.1 nhil=930) CHLORIDE (BEAKER) (test 99 meq/L 98-107 kzyd=733) CO2 (BEAKER) (test 29 meq/L 22-29 kmka=831) BLOOD UREA NITROGEN 17 mg/dL 7-21 (BEAKER) (test qbqe=293) CREATININE (BEAKER) (test 0.79 mg/dL 0.57-1.25 fnfz=447) GLUCOSE RANDOM (BEAKER) 402 mg/dL 70-105 (test xuyz=341) CALCIUM (BEAKER) (test 7.9 mg/dL 8.4-10.2 edeo=696) EGFR (BEAKER) (test 108 mL/min/1.73 sq m ESTIMATED GFR IS NOT vrax=0449) ACCURATE CREATININE CLEARANCE IN PREDICTING GLOMERULAR FILTRATION RATE. ESTIMATED GFR IS NOT APPLICABLE FOR DIALYSIS PATIENTS. CBC W/PLT COUNT & AUTO [id number] 03:36:00 Test Item Value Reference Range Comments WHITE BLOOD CELL COUNT (BEAKER) (test inct=460) 12.5 K/ L 4.0-10.0 RED BLOOD CELL COUNT (BEAKER) (test qvez=904) 3.97 M/ L 4.00-5.00 HEMOGLOBIN (BEAKER) (test zvti=585) 11.3 GM/DL 12.0-15.0 HEMATOCRIT (BEAKER) (test dvhr=245) 36.2 % 36.0-45.0 MEAN CORPUSCULAR VOLUME (BEAKER) (test daxg=000) 91.2 fL 82.0-99.0 MEAN CORPUSCULAR HEMOGLOBIN (BEAKER) (test 28.4 pg 27.0-33.0 jisv=126) MEAN CORPUSCULAR HEMOGLOBIN CONC (BEAKER) (test 31.1 GM/DL 32.0-36.0 eloj=328) RED CELL DISTRIBUTION WIDTH (BEAKER) (test 13.9 % 10.3-14.2 whyw=055) PLATELET COUNT (BEAKER) (test djaa=377) 358 K/CU MM 150-430 MEAN PLATELET VOLUME (BEAKER) (test jrwy=168) 8.8 fL 6.5-10.5 NUCLEATED RED BLOOD CELLS (BEAKER) (test 0 /100 WBC 0-0 hfyg=872) NEUTROPHILS RELATIVE PERCENT (BEAKER) (test 73 % whfl=136) LYMPHOCYTES RELATIVE PERCENT (BEAKER) (test 19 % fsiq=825) MONOCYTES RELATIVE PERCENT (BEAKER) (test 6 % htwx=876) EOSINOPHILS RELATIVE PERCENT (BEAKER) (test 2 % gjcc=943) BASOPHILS RELATIVE PERCENT (BEAKER) (test 0 % hkrk=758) NEUTROPHILS ABSOLUTE COUNT (BEAKER) (test 9.15 K/ L 1.80-8.00 frxk=266) LYMPHOCYTES ABSOLUTE COUNT (BEAKER) (test 2.35 K/ L 1.48-4.50 sjmd=059) MONOCYTES ABSOLUTE COUNT (BEAKER) (test 0.74 K/ L 0.00-1.30 kfzg=936) EOSINOPHILS ABSOLUTE COUNT (BEAKER) (test 0.25 K/ L 0.00-0.50 enpo=831) BASOPHILS ABSOLUTE COUNT (BEAKER) (test 0.04 K/ L 0.00-0.20 tkzm=377) 0.00POCT-GLUCOSE [id number] 22:02:00 Test Item Value Reference Range Comments POC-GLUCOSE METER (BEAKER) 129 mg/dL 70-110 TESTED AT [address] (test duob=4377) [place] [address] POCT-GLUCOSE [id number] 17:43:00 Test Item Value Reference Range Comments POC-GLUCOSE METER (BEAKER) 399 mg/dL 70-110 TESTED AT [address] (test qena=2886) [place] [address] SPIN/CONCENTRATION [id number] 13:27:00 Test Item Value Reference Range Comments CONCENTRATION CHARGED (BEAKER) (test ajmd=7538) Done POCT-GLUCOSE [id number] 12:38:00 Test Item Value Reference Range Comments POC-GLUCOSE METER (BEAKER) 312 mg/dL 70-110 TESTED AT [address] (test onec=5295) [place] [address] CBC W/PLT COUNT & AUTO [id number] 09:37:00 Test Item Value Reference Range Comments WHITE BLOOD CELL COUNT (BEAKER) (test rajp=603) 14.2 K/ L 4.0-10.0 RED BLOOD CELL COUNT (BEAKER) (test stmr=974) 4.26 M/ L 4.00-5.00 HEMOGLOBIN (BEAKER) (test jsvh=972) 11.9 GM/DL 12.0-15.0 HEMATOCRIT (BEAKER) (test lwvp=344) 38.2 % 36.0-45.0 MEAN CORPUSCULAR VOLUME (BEAKER) (test axzz=725) 89.9 fL 82.0-99.0 MEAN CORPUSCULAR HEMOGLOBIN (BEAKER) (test 27.9 pg 27.0-33.0 kubu=012) MEAN CORPUSCULAR HEMOGLOBIN CONC (BEAKER) (test 31.1 GM/DL 32.0-36.0 xthl=571) RED CELL DISTRIBUTION WIDTH (BEAKER) (test 14.0 % 10.3-14.2 hheu=658) PLATELET COUNT (BEAKER) (test nqtm=223) 359 K/CU MM 150-430 MEAN PLATELET VOLUME (BEAKER) (test vrib=234) 8.9 fL 6.5-10.5 NUCLEATED RED BLOOD CELLS (BEAKER) (test 0 /100 WBC 0-0 hzxs=322) NEUTROPHILS RELATIVE PERCENT (BEAKER) (test 76 % prze=310) LYMPHOCYTES RELATIVE PERCENT (BEAKER) (test 18 % nxzo=890) MONOCYTES RELATIVE PERCENT (BEAKER) (test 5 % vwtn=787) EOSINOPHILS RELATIVE PERCENT (BEAKER) (test 1 % aocb=723) BASOPHILS RELATIVE PERCENT (BEAKER) (test 0 % nyva=638) NEUTROPHILS ABSOLUTE COUNT (BEAKER) (test 10.80 K/ L 1.80-8.00 smxg=439) LYMPHOCYTES ABSOLUTE COUNT (BEAKER) (test 2.52 K/ L 1.48-4.50 pjao=839) MONOCYTES ABSOLUTE COUNT (BEAKER) (test 0.65 K/ L 0.00-1.30 vgsm=984) EOSINOPHILS ABSOLUTE COUNT (BEAKER) (test 0.21 K/ L 0.00-0.50 lnfp=018) BASOPHILS ABSOLUTE COUNT (BEAKER) (test 0.03 K/ L 0.00-0.20 svau=957) 0.00HCG, QUANTITATIVE, [id number] 09:10:00 Test Item Value Reference Range Comments GONADOTROPIN, CHORIONIC (HCG) QUANT (BEAKER) (test < mIU/mL 0-10 acol=017) Non- Females: <10 mIU/mL Females: Gestation Age Reference Range(mIU/mL) 0.2-1 Week 5-50 1-2 Weeks 50-500 2-3 Weeks 100-5,000 3-4Weeks 500-10,000 4 -5 Weeks 1,000-50,000 5-6 Weeks 10,000-100,000 6-8 Weeks 15,000-200,000 2-3 Months 10,000-100,000PREGNANCY SCREEN, [id number] 09:05:00 Test Item Value Reference Range Comments TEST URINE (BEAKER) (test kfjw=915) Negative GAMMA GLUTAMYL TRANSFERASE (GGT)2017-01-01 09:02:00 Test Item Value Reference Range Comments GAMMA GLUTAMYL TRANSFERASE (BEAKER) (test qzbp=852) 22 U/L 9-64 COMPREHENSIVE METABOLIC [id number] 09:02:00 Test Item Value Reference Range Comments TOTAL PROTEIN (BEAKER) 6.6 gm/dL 6.0-8.3 (test ywdz=980) ALBUMIN (BEAKER) (test 2.6 g/dL 3.5-5.0 sodt=4241) ALKALINE PHOSPHATASE 136 U/L 40-150 (BEAKER) (test kfdh=450) BILIRUBIN TOTAL (BEAKER) 0.1 mg/dL 0.2-1.2 (test bysn=902) SODIUM (BEAKER) (test 135 meq/L 136-145 npek=867) POTASSIUM (BEAKER) (test 4.4 meq/L 3.5-5.1 dobu=405) CHLORIDE (BEAKER) (test 100 meq/L 98-107 qejj=702) CO2 (BEAKER) (test 25 meq/L 22-29 hstq=971) BLOOD UREA NITROGEN 7 mg/dL 7-21 (BEAKER) (test dmnx=475) CREATININE (BEAKER) (test 0.81 mg/dL 0.57-1.25 hymd=185) GLUCOSE RANDOM (BEAKER) 378 mg/dL 70-105 (test ychs=369) CALCIUM (BEAKER) (test 8.0 mg/dL 8.4-10.2 puen=534) AST (SGOT) (BEAKER) (test 7 U/L 5-34 vhjg=832) ALT (SGPT) (BEAKER) (test 8 U/L 6-55 mtvo=244) EGFR (BEAKER) (test 105 mL/min/1.73 sq ESTIMATED GFR IS NOT youl=9563) m ACCURATE CREATININE CLEARANCE IN PREDICTING GLOMERULAR FILTRATION RATE. ESTIMATED GFR IS NOT APPLICABLE FOR DIALYSIS PATIENTS. POCT-GLUCOSE [id number] 07:27:00 Test Item Value Reference Range Comments POC-GLUCOSE METER (BEAKER) 327 mg/dL 70-110 TESTED AT [address] (test xpkz=6988) [place] [id number] POCT-GLUCOSE [id number] 21:00:00 Test Item Value Reference Range Comments POC-GLUCOSE METER (BEAKER) 218 mg/dL 70-110 TESTED AT [address] (test whbi=5780) [place] [id number] LACTIC ACID, VENOUS, WHOLE [id number] 17:38:00 Test Item Value Reference Range Comments LACTATE BLOOD VENOUS (2) (BEAKER) (test 2.3 mmol/L 0.5-2.2 sfyp=4851) Effective 02/26/2016: Units/Reference Range ChangeNew: 0.5-2.2 mmol/L Previous: 5 -20 mg/dLPOCT-GLUCOSE [id number] 17:13:00 Test Item Value Reference Range Comments POC-GLUCOSE METER (BEAKER) 97 mg/dL 70-110 TESTED AT [address] (test pruz=4019) [place] [address] KETONE, [id number] 15:38:00 Test Item Value Reference Range Comments KETONES, BLOOD (BEAKER) (test picn=3942) 0.1 mmol/L <0.4 CBC W/PLT COUNT & AUTO [id number] 15:28:00 Test Item Value Reference Range Comments WHITE BLOOD CELL COUNT (BEAKER) (test mays=029) 16.4 K/ L 4.0-10.0 RED BLOOD CELL COUNT (BEAKER) (test wuqw=130) 4.60 M/ L 4.00-5.00 HEMOGLOBIN (BEAKER) (test ojjx=024) 13.1 GM/DL 12.0-15.0 HEMATOCRIT (BEAKER) (test qewa=725) 41.3 % 36.0-45.0 MEAN CORPUSCULAR VOLUME (BEAKER) (test lhtf=058) 89.6 fL 82.0-99.0 MEAN CORPUSCULAR HEMOGLOBIN (BEAKER) (test 28.4 pg 27.0-33.0 xxzb=155) MEAN CORPUSCULAR HEMOGLOBIN CONC (BEAKER) (test 31.7 GM/DL 32.0-36.0 fbgx=666) RED CELL DISTRIBUTION WIDTH (BEAKER) (test 14.1 % 10.3-14.2 jafi=559) PLATELET COUNT (BEAKER) (test znky=839) 358 K/CU MM 150-430 MEAN PLATELET VOLUME (BEAKER) (test wmhf=941) 9.5 fL 6.5-10.5 NUCLEATED RED BLOOD CELLS (BEAKER) (test 0 /100 WBC 0-0 jatv=462) NEUTROPHILS RELATIVE PERCENT (BEAKER) (test 82 % wgvt=281) LYMPHOCYTES RELATIVE PERCENT (BEAKER) (test 9 % yjay=898) MONOCYTES RELATIVE PERCENT (BEAKER) (test 7 % tdri=698) EOSINOPHILS RELATIVE PERCENT (BEAKER) (test 2 % lexs=767) BASOPHILS RELATIVE PERCENT (BEAKER) (test 0 % kxkd=640) NEUTROPHILS ABSOLUTE COUNT (BEAKER) (test 13.40 K/ L 1.80-8.00 qgcm=584) LYMPHOCYTES ABSOLUTE COUNT (BEAKER) (test 1.53 K/ L 1.48-4.50 auxv=001) MONOCYTES ABSOLUTE COUNT (BEAKER) (test 1.07 K/ L 0.00-1.30 uhrp=728) EOSINOPHILS ABSOLUTE COUNT (BEAKER) (test 0.31 K/ L 0.00-0.50 cpcx=636) BASOPHILS ABSOLUTE COUNT (BEAKER) (test 0.01 K/ L 0.00-0.20 absj=437) 0.00COMPREHENSIVE METABOLIC [id number] 15:27:00 Test Item Value Reference Range Comments TOTAL PROTEIN (BEAKER) 7.2 gm/dL 6.0-8.3 (test vbvs=663) ALBUMIN (BEAKER) (test 2.8 g/dL 3.5-5.0 noql=0942) ALKALINE PHOSPHATASE 157 U/L 40-150 (BEAKER) (test zaci=840) BILIRUBIN TOTAL (BEAKER) 0.1 mg/dL 0.2-1.2 (test lhkl=723) SODIUM (BEAKER) (test 131 meq/L 136-145 mikr=469) POTASSIUM (BEAKER) (test 4.0 meq/L 3.5-5.1 yeoa=639) CHLORIDE (BEAKER) (test 95 meq/L 98-107 gphu=041) CO2 (BEAKER) (test 25 meq/L 22-29 pmig=009) BLOOD UREA NITROGEN 7 mg/dL 7-21 (BEAKER) (test lsco=914) CREATININE (BEAKER) (test 0.95 mg/dL 0.57-1.25 euwh=916) GLUCOSE RANDOM (BEAKER) 655 mg/dL 70-105 (test srjk=648) CALCIUM (BEAKER) (test 8.2 mg/dL 8.4-10.2 nxzl=581) AST (SGOT) (BEAKER) (test 8 U/L 5-34 epmr=189) ALT (SGPT) (BEAKER) (test 7 U/L 6-55 rcji=854) EGFR (BEAKER) (test 88 mL/min/1.73 sq m ESTIMATED GFR IS NOT obdj=3454) ACCURATE CREATININE CLEARANCE IN PREDICTING GLOMERULAR FILTRATION RATE. ESTIMATED GFR IS NOT APPLICABLE FOR DIALYSIS PATIENTS. POCT-LACTIC ACID, [id number] 15:01:00 Test Item Value Reference Range Comments POC-LACTIC ACID, VENOUS 2.5 mmol/L 0.9-1.7 TESTED AT [address] ([facility]) (test afwn=1448) [facility] [address] POCT-GLUCOSE [id number] 14:59:00 Test Item Value Reference Range Comments POC-GLUCOSE METER ([facility]) > mg/dL 70-110 OUTSIDE MEASURING RANGETESTED AT (test ibqx=9188) [address] [address] FUNGUS CULTURE + [id number] 19:28:00 Test Item Value Reference Range Comments CULTURE ([facility]) (test 2+ Clau albicans ripa=4294) FUNGUS SMEAR ([facility]) No fungi seen (test grqv=1399) CULTURE ([facility]) (test 1 out of 3 media Aspergillus btgo=12450) fumigatusThis is an appended report. These organism results have been appended to a previously final verified report. CBC W/PLT COUNT & AUTO [id number] 14:39:00 Test Item Value Reference Range Comments WHITE BLOOD CELL COUNT (BEAKER) (test brud=116) 13.5 K/ L 4.0-10.0 RED BLOOD CELL COUNT (BEAKER) (test xdll=534) 3.70 M/ L 4.00-5.00 HEMOGLOBIN (BEAKER) (test gzuy=878) 10.5 GM/DL 12.0-15.0 HEMATOCRIT (BEAKER) (test eiis=794) 34.5 % 36.0-45.0 MEAN CORPUSCULAR VOLUME (BEAKER) (test vuna=932) 93.4 fL 82.0-99.0 MEAN CORPUSCULAR HEMOGLOBIN (BEAKER) (test 28.4 pg 27.0-33.0 hpgy=169) MEAN CORPUSCULAR HEMOGLOBIN CONC (BEAKER) (test 30.4 GM/DL 32.0-36.0 jeny=515) RED CELL DISTRIBUTION WIDTH (BEAKER) (test 15.7 % 10.3-14.2 ygbw=454) PLATELET COUNT (BEAKER) (test rcxt=160) 376 K/CU MM 150-430 MEAN PLATELET VOLUME (BEAKER) (test vvqv=523) 8.4 fL 6.5-10.5 NUCLEATED RED BLOOD CELLS (BEAKER) (test 1 /100 WBC 0-0 vkxs=430) NEUTROPHILS RELATIVE PERCENT (BEAKER) (test 88 % eyoc=401) LYMPHOCYTES RELATIVE PERCENT (BEAKER) (test 8 % nviw=862) MONOCYTES RELATIVE PERCENT (BEAKER) (test 3 % zgvq=698) EOSINOPHILS RELATIVE PERCENT (BEAKER) (test 0 % quse=064) BASOPHILS RELATIVE PERCENT (BEAKER) (test 0 % ypuf=373) NEUTROPHILS ABSOLUTE COUNT (BEAKER) (test 11.90 K/ L 1.80-8.00 ufni=176) LYMPHOCYTES ABSOLUTE COUNT (BEAKER) (test 1.03 K/ L 1.48-4.50 bbnp=740) MONOCYTES ABSOLUTE COUNT (BEAKER) (test 0.45 K/ L 0.00-1.30 tszt=323) EOSINOPHILS ABSOLUTE COUNT (BEAKER) (test 0.07 K/ L 0.00-0.50 xlul=065) BASOPHILS ABSOLUTE COUNT (BEAKER) (test 0.05 K/ L 0.00-0.20 igqc=206) 0.000.530.000.000.000.00(MANUAL DIFFERENTIAL)2016-12-12 14:39:00 Test Item Value Reference Range Comments TOTAL COUNTED (BEAKER) (test kibr=9448) WBC MORPHOLOGY (BEAKER) (test blxl=168) Normal PLT MORPHOLOGY (BEAKER) (test bobu=467) Normal RBC MORPHOLOGY (BEAKER) (test cdde=627) Normal [id number] 08:09:00 Test Item Value Reference Range Comments MAGNESIUM (BEAKER) (test tope=081) 1.4 mg/dL 1.6-2.6 BASIC METABOLIC [id number] 08:09:00 Test Item Value Reference Range Comments SODIUM (BEAKER) (test 137 meq/L 136-145 ueax=295) POTASSIUM (BEAKER) (test 4.1 meq/L 3.5-5.1 stya=730) CHLORIDE (BEAKER) (test 98 meq/L 98-107 ydhx=874) CO2 (BEAKER) (test 18 meq/L 22-29 lvpe=213) BLOOD UREA NITROGEN 14 mg/dL 7-21 (BEAKER) (test ceyq=264) CREATININE (BEAKER) (test 0.98 mg/dL 0.57-1.25 lgnj=556) GLUCOSE RANDOM (BEAKER) 287 mg/dL 70-105 (test wmen=619) CALCIUM (BEAKER) (test 8.9 mg/dL 8.4-10.2 jotw=976) EGFR (BEAKER) (test 85 mL/min/1.73 sq m ESTIMATED GFR IS NOT zthd=5191) ACCURATE CREATININE CLEARANCE IN PREDICTING GLOMERULAR FILTRATION RATE. ESTIMATED GFR IS NOT APPLICABLE FOR DIALYSIS PATIENTS. POCT-GLUCOSE [id number] 15:20:00 Test Item Value Reference Range Comments POC-GLUCOSE METER (BEAKER) 212 mg/dL 70-110 TESTED AT [address] (test sgzq=4668) [facility] [address] POCT-GLUCOSE [id number] 13:55:00 Test Item Value Reference Range Comments POC-GLUCOSE METER (BEAKER) 49 mg/dL 70-110 Notified JORDON STAPLETON/TESTED AT [facility] (test vbxy=0094) [facility] [place] [facility] [address] POCT-GLUCOSE [id number] 12:02:00 Test Item Value Reference Range Comments POC-GLUCOSE METER (BEAKER) 386 mg/dL 70-110 Notified JORDON STAPLETON/TESTED AT [facility] (test qbcw=7892) [address] [place] [address] POCT-GLUCOSE [id number] 08:21:00 Test Item Value Reference Range Comments POC-GLUCOSE METER (BEAKER) 173 mg/dL 70-110 TESTED AT [address] (test noxf=9308) [facility] [address] POCT-GLUCOSE [id number] 23:54:00 Test Item Value Reference Range Comments POC-GLUCOSE METER (BEAKER) 186 mg/dL 70-110 TESTED AT [address] (test nkth=5916) [facility] [address] POCT-GLUCOSE [id number] 20:57:00 Test Item Value Reference Range Comments POC-GLUCOSE METER (BEAKER) 292 mg/dL 70-110 TESTED AT [address] (test hohc=2662) [facility] [address] POCT-GLUCOSE [id number] 18:30:00 Test Item Value Reference Range Comments POC-GLUCOSE METER (BEAKER) > mg/dL 70-110 OUTSIDE MEASURING RANGENotified JORDON (test ohig=6343) or Patient refused repeat test/TESTED AT [address] [address] POCT-GLUCOSE [id number] 12:56:00 Test Item Value Reference Range Comments POC-GLUCOSE METER (BEAKER) 233 mg/dL 70-110 TESTED AT [address] (test hkmo=3260) [facility] [address] BLOOD [id number] 10:00:00 Test Item Value Reference Range Comments CULTURE (BEAKER) (test vtms=7875) No growth in 5 days BLOOD [id number] 10:00:00 Test Item Value Reference Range Comments CULTURE (BEAKER) (test knqh=8729) No growth in 5 days CBC W/PLT COUNT & AUTO [id number] 09:19:00 Test Item Value Reference Range Comments WHITE BLOOD CELL COUNT (BEAKER) (test rwpb=260) 10.9 K/ L 4.0-10.0 RED BLOOD CELL COUNT (BEAKER) (test zkjg=620) 3.65 M/ L 4.00-5.00 HEMOGLOBIN (BEAKER) (test rxiz=084) 9.9 GM/DL 12.0-15.0 HEMATOCRIT (BEAKER) (test hfsa=911) 32.7 % 36.0-45.0 MEAN CORPUSCULAR VOLUME (BEAKER) (test afbz=424) 89.5 fL 82.0-99.0 MEAN CORPUSCULAR HEMOGLOBIN (BEAKER) (test 27.2 pg 27.0-33.0 doid=371) MEAN CORPUSCULAR HEMOGLOBIN CONC (BEAKER) (test 30.4 GM/DL 32.0-36.0 kqxl=261) RED CELL DISTRIBUTION WIDTH (BEAKER) (test 14.8 % 10.3-14.2 gzlh=380) PLATELET COUNT (BEAKER) (test jkat=189) 357 K/CU MM 150-430 MEAN PLATELET VOLUME (BEAKER) (test gobx=294) 8.8 fL 6.5-10.5 NUCLEATED RED BLOOD CELLS (BEAKER) (test 0 /100 WBC 0-0 vgah=949) NEUTROPHILS RELATIVE PERCENT (BEAKER) (test 60 % mhhp=614) LYMPHOCYTES RELATIVE PERCENT (BEAKER) (test 29 % pjyy=620) MONOCYTES RELATIVE PERCENT (BEAKER) (test 9 % scgw=125) EOSINOPHILS RELATIVE PERCENT (BEAKER) (test 3 % mciv=723) BASOPHILS RELATIVE PERCENT (BEAKER) (test 0 % kvrh=843) NEUTROPHILS ABSOLUTE COUNT (BEAKER) (test 6.50 K/ L 1.80-8.00 pffi=574) LYMPHOCYTES ABSOLUTE COUNT (BEAKER) (test 3.15 K/ L 1.48-4.50 edeo=893) MONOCYTES ABSOLUTE COUNT (BEAKER) (test 0.94 K/ L 0.00-1.30 qqke=241) EOSINOPHILS ABSOLUTE COUNT (BEAKER) (test 0.27 K/ L 0.00-0.50 nnnm=018) BASOPHILS ABSOLUTE COUNT (BEAKER) (test 0.02 K/ L 0.00-0.20 sqvz=625) [id number] 07:34:00 Test Item Value Reference Range Comments MAGNESIUM (BEAKER) (test gtgp=348) 1.4 mg/dL 1.6-2.6 BASIC METABOLIC [id number] 07:34:00 Test Item Value Reference Range Comments SODIUM (BEAKER) (test 133 meq/L 136-145 mamp=527) POTASSIUM (BEAKER) (test 4.6 meq/L 3.5-5.1 nbpb=122) CHLORIDE (BEAKER) (test 101 meq/L 98-107 qwjx=575) CO2 (BEAKER) (test 24 meq/L 22-29 lxba=202) BLOOD UREA NITROGEN 15 mg/dL 7-21 (BEAKER) (test vgjh=608) CREATININE (BEAKER) (test 0.68 mg/dL 0.57-1.25 hagw=223) GLUCOSE RANDOM (BEAKER) 284 mg/dL 70-105 (test olfh=988) CALCIUM (BEAKER) (test 9.1 mg/dL 8.4-10.2 lmxm=023) EGFR (BEAKER) (test 129 mL/min/1.73 sq m ESTIMATED GFR IS NOT pbit=4054) ACCURATE CREATININE CLEARANCE IN PREDICTING GLOMERULAR FILTRATION RATE. ESTIMATED GFR IS NOT APPLICABLE FOR DIALYSIS PATIENTS. POCT-GLUCOSE [id number] 21:23:00 Test Item Value Reference Range Comments POC-GLUCOSE METER (BEAKER) 230 mg/dL 70-110 TESTED AT [address] (test qmyx=2642) [facility] [address] POCT-GLUCOSE [id number] 17:41:00 Test Item Value Reference Range Comments POC-GLUCOSE METER (BEAKER) 195 mg/dL 70-110 TESTED AT [address] (test hfkl=6749) [facility] [address] CBC W/PLT COUNT & AUTO [id number] 15:23:00 Test Item Value Reference Range Comments WHITE BLOOD CELL COUNT (BEAKER) (test cfev=992) 12.2 K/ L 4.0-10.0 RED BLOOD CELL COUNT (BEAKER) (test rwvz=783) 3.75 M/ L 4.00-5.00 HEMOGLOBIN (BEAKER) (test gnem=238) 10.3 GM/DL 12.0-15.0 HEMATOCRIT (BEAKER) (test fcho=101) 33.5 % 36.0-45.0 MEAN CORPUSCULAR VOLUME (BEAKER) (test fapp=969) 89.5 fL 82.0-99.0 MEAN CORPUSCULAR HEMOGLOBIN (BEAKER) (test 27.5 pg 27.0-33.0 fehi=973) MEAN CORPUSCULAR HEMOGLOBIN CONC (BEAKER) (test 30.7 GM/DL 32.0-36.0 kkse=285) RED CELL DISTRIBUTION WIDTH (BEAKER) (test 14.7 % 10.3-14.2 kuej=886) PLATELET COUNT (BEAKER) (test hwvo=670) 354 K/CU MM 150-430 MEAN PLATELET VOLUME (BEAKER) (test ajbr=105) 8.8 fL 6.5-10.5 NUCLEATED RED BLOOD CELLS (BEAKER) (test 0 /100 WBC 0-0 nwym=415) NEUTROPHILS RELATIVE PERCENT (BEAKER) (test 73 % voej=757) LYMPHOCYTES RELATIVE PERCENT (BEAKER) (test 18 % qglj=813) MONOCYTES RELATIVE PERCENT (BEAKER) (test 8 % rvaz=806) EOSINOPHILS RELATIVE PERCENT (BEAKER) (test 1 % uttg=462) BASOPHILS RELATIVE PERCENT (BEAKER) (test 0 % dejw=255) NEUTROPHILS ABSOLUTE COUNT (BEAKER) (test 8.95 K/ L 1.80-8.00 ahyz=202) LYMPHOCYTES ABSOLUTE COUNT (BEAKER) (test 2.13 K/ L 1.48-4.50 cgyk=898) MONOCYTES ABSOLUTE COUNT (BEAKER) (test 0.95 K/ L 0.00-1.30 lcyn=110) EOSINOPHILS ABSOLUTE COUNT (BEAKER) (test 0.16 K/ L 0.00-0.50 welj=003) BASOPHILS ABSOLUTE COUNT (BEAKER) (test 0.01 K/ L 0.00-0.20 sgnp=009) 0.000.520.000.000.000.00(MANUAL DIFFERENTIAL)2016-12-09 15:23:00 Test Item Value Reference Range Comments TOTAL COUNTED (BEAKER) (test sjev=4324) WBC MORPHOLOGY (BEAKER) (test pthb=918) Normal PLT MORPHOLOGY (BEAKER) (test ywre=356) Normal RBC MORPHOLOGY (BEAKER) (test vynz=493) Normal POCT-GLUCOSE [id number] 11:49:00 Test Item Value Reference Range Comments POC-GLUCOSE METER (BEAKER) 370 mg/dL 70-110 Notified RN or MD Patient (test rmwl=6808) refused repeat test/TESTED AT [facility] [address] [facility] [address] POCT-GLUCOSE [id number] 11:45:00 Test Item Value Reference Range Comments POC-GLUCOSE METER (BEAKER) 424 mg/dL 70-110 Notified RN or MD Patient (test uqmr=8074) refused repeat test/TESTED AT [facility] [address] [facility] [place] [address] CF RESPIRATORY [id number] 10:46:00 Test Item Value Reference Range Comments CULTURE ([employer]) (test PSEUDOMONAS 4+ Pseudomonas xeoj=9830) AERUGINOSA aeruginosa Amikacin (test code=1) Susceptible 0-16 , Resistant <0 or >16 Aztreonam (test Susceptible 0-8 , code=32) Resistant <0 or >8 Cefepime (test code=51) Susceptible 0-8 , Resistant <0 or >8 Ceftazidime (test Susceptible 0-8 , code=27) Resistant <0 or >8 Ciprofloxacin (test Susceptible 0-1 , code=7) Resistant <0 or >1 Doripenem (test Susceptible 0-2 , pvmd=798) Resistant <0 or >2 Gentamicin (test Susceptible 0-4 , code=18) Resistant <0 or >4 Imipenem (test code=19) Susceptible 0-2 , Resistant <0 or >2 Levofloxacin (test Susceptible 0-2 , code=22) Resistant <0 or >2 Meropenem (test Susceptible 0-2 , code=34) Resistant <0 or >2 Piperacillin (test Susceptible 0-16 , code=24) Resistant <0 or >16 Piperacillin + Susceptible 0-16 , Tazobactam (test Resistant <0 or >16 code=29) Tobramycin (test Susceptible 0-4 , code=25) Resistant <0 or >4 CULTURE ([employer]) (test PSEUDOMONAS 4+ Pseudomonas iyyt=01853) AERUGINOSA aeruginosaof a second type Amikacin (test code=1) Susceptible 0-16 , Resistant <0 or >16 Aztreonam (test Susceptible 0-8 , code=32) Resistant <0 or >8 Cefepime (test code=51) Susceptible 0-8 , Resistant <0 or >8 Ceftazidime (test Susceptible 0-8 , code=27) Resistant <0 or >8 Ciprofloxacin (test Susceptible 0-1 , code=7) Resistant <0 or >1 Doripenem (test Susceptible 0-2 , zkgv=973) Resistant <0 or >2 Gentamicin (test Susceptible 0-4 , code=18) Resistant <0 or >4 Imipenem (test code=19) Susceptible 0-2 , Resistant <0 or >2 Levofloxacin (test Susceptible 0-2 , code=22) Resistant <0 or >2 Meropenem (test Susceptible 0-2 , code=34) Resistant <0 or >2 Piperacillin (test Susceptible 0-16 , code=24) Resistant <0 or >16 Piperacillin + Susceptible 0-16 , Tazobactam (test Resistant <0 or >16 code=29) Tobramycin (test Susceptible 0-4 , code=25) Resistant <0 or >4 CULTURE ([employer]) (test PSEUDOMONAS Pseudomonas kxkr=[id number]) AERUGINOSA aeruginosaof a third type Amikacin (test code=1) Susceptible 0-16 , Resistant <0 or >16 Aztreonam (test Susceptible 0-8 , code=32) Resistant <0 or >8 Cefepime (test code=51) Susceptible 0-8 , Resistant <0 or >8 Ceftazidime (test Susceptible 0-8 , code=27) Resistant <0 or >8 Ciprofloxacin (test Susceptible 0-1 , code=7) Resistant <0 or >1 Doripenem (test Susceptible 0-2 , lmlz=676) Resistant <0 or >2 Gentamicin (test Susceptible 0-4 , code=18) Resistant <0 or >4 Imipenem (test code=19) Susceptible 0-2 , Resistant <0 or >2 Levofloxacin (test Susceptible 0-2 , code=22) Resistant <0 or >2 Meropenem (test Susceptible 0-2 , code=34) Resistant <0 or >2 Piperacillin (test Susceptible 0-16 , code=24) Resistant <0 or >16 Piperacillin + Susceptible 0-16 , Tazobactam (test Resistant <0 or >16 code=29) Tobramycin (test Susceptible 0-4 , code=25) Resistant <0 or >4 3+ Normal respiratory derick presentPOCT-GLUCOSE [id number] 10:07:00 Test Item Value Reference Range Comments POC-GLUCOSE METER ([employer]) 112 mg/dL 70-[address] [facility] [address] [facility] (test nyiy=0605) [facility] [address] [id number] 07:09:00 Test Item Value Reference Range Comments MAGNESIUM (BEAKER) (test zqoz=355) 1.6 mg/dL 1.6-2.6 BASIC METABOLIC [id number] 07:09:00 Test Item Value Reference Range Comments SODIUM (BEAKER) (test 135 meq/L 136-145 avot=136) POTASSIUM (BEAKER) (test 4.0 meq/L 3.5-5.1 uola=934) CHLORIDE (BEAKER) (test 101 meq/L 98-107 tdxi=981) CO2 (BEAKER) (test 27 meq/L 22-29 tqei=929) BLOOD UREA NITROGEN 8 mg/dL 7-21 (BEAKER) (test ymfd=742) CREATININE (BEAKER) (test 0.55 mg/dL 0.57-1.25 cmzd=514) GLUCOSE RANDOM (BEAKER) 133 mg/dL 70-105 (test ajff=339) CALCIUM (BEAKER) (test 8.8 mg/dL 8.4-10.2 fqeo=895) EGFR (BEAKER) (test 165 mL/min/1.73 sq m ESTIMATED GFR IS NOT hyzf=0078) ACCURATE CREATININE CLEARANCE IN PREDICTING GLOMERULAR FILTRATION RATE. ESTIMATED GFR IS NOT APPLICABLE FOR DIALYSIS PATIENTS. POCT-GLUCOSE [id number] 20:59:00 Test Item Value Reference Range Comments POC-GLUCOSE METER (BEAKER) 294 mg/dL 70-110 TESTED AT [place] [id number] [facility] (test oirj=0485) [facility] [address] POCT-GLUCOSE [id number] 18:18:00 Test Item Value Reference Range Comments POC-GLUCOSE METER (BEAKER) 238 mg/dL 70-110 TESTED AT [place] [id number] [facility] (test hvrz=9510) [place] [id number] [employer] CULTURE + [id number] 17:58:00 Test Item Value Reference Range Comments CULTURE (BEAKER) (test No acid-fast bacilli isolated [id number]) in 42 days AFB SMEAR (BEAKER) (test No acid fast bacilli seen [id number])
--- NOTE | 2018-10-26 17:23 | RAD REPORT ---
EXAM DESCRIPTION: RAD - Neck Soft Tissue - 10/26/2018 5:13 pm CLINICAL HISTORY: Neck pain, possible ingested foreign body COMPARISON: None. TECHNIQUE: Single lateral soft tissue neck exam performed. FINDINGS: No prevertebral soft tissue thickening. No foreign body or abnormal air density. Epiglot tis is normal. Tonsillar and adenoid tissue within normal limits as well. No disk or bony abnormali ty. IMPRESSION: Negative lateral soft tissue neck exam. No foreign body identifiable.
--- NOTE | 2018-10-26 17:46 | ER ---
Nurse's Notes [facility] Name: Ester Hagen Age: 28 yrs Sex: Female : 1990 Arrival Date: 10/26/2018 Time: 16:10 Bed 30 Private MD: None, None Diagnosis: Pain in throat Presentation: 10/26 16:25 Presenting complaint: Patient states: "I think I have a gonzalez stem in my throat." aj Patient has clear speaking voice. No FB visible in throat at this time. White spots noted to back of throat. Patient present drinking soda in triage in NAD. Transition of care: patient was not received from another setting of care. Onset of symptoms was October 25, 2018. Risk Assessment: Do you want to hurt yourself or someone else? Patient reports no desire to harm self or others. Initial Sepsis Screen: Does the patient meet any 2 criteria? No. Patient's initial sepsis screen is negative. Does the patient have a suspected source of infection? No. Patient's initial sepsis screen is negative. Care prior to arrival: None. 16:25 Method Of Arrival: Ambulatory 16:25 Acuity: DEDRA 3 Triage Assessment: 16:28 General: Appears in no apparent distress. comfortable, Behavior is calm, cooperative, aj appropriate for age. Pain: Denies pain. EENT: Reports FB in throat. Neuro: Level of Consciousness is awake, alert, obeys commands, Oriented to person, place, time, situation, Appropriate for age. Respiratory: Airway is patent Respiratory effort is even, unlabored, Respiratory pattern is regular, symmetrical. Derm: Skin is intact, is healthy with good turgor, Skin is pink, warm \\T\\ dry. normal. 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 - Social history:: Smoking status: Patient/guardian denies using tobacco. - Ebola Screening: : Patient negative for fever greater than or equal to 101.5 degrees Fahrenheit, and additional compatible Ebola Virus Disease symptoms Patient denies exposure to infectious person Patient denies travel to an Ebola-affected area in the 21 days before illness onset No symptoms or risks identified at this time. Screenin:39 Abuse screen: Denies threats or abuse. Denies injuries from another. Nutritional mg2 screening: No deficits noted. Tuberculosis screening: No symptoms or risk factors identified. Fall Risk None identified. Assessment: 16:38 General: Appears in no apparent distress. comfortable, Behavior is calm, cooperative. mg2 Pain: Complains of pain in throat Pain does not radiate. Pain currently is 3 out of 10 on a pain scale. Quality of pain is described as aching, Pain began gradually, since last night Is intermittent. Neuro: Level of Consciousness is awake, alert, obeys commands, Oriented to person, place, time, situation. Cardiovascular: Capillary refill < 3 seconds Patient's skin is warm and dry. Respiratory: Airway is patent Respiratory effort is even, unlabored, Respiratory pattern is regular, symmetrical. GI: No signs and/or symptoms were reported involving the gastrointestinal system. : No signs and/or symptoms were reported regarding the genitourinary system. EENT: Throat has patchy exudate. Derm: Skin is intact, is healthy with good turgor, Skin is pink, warm \\T\\ dry. normal. Musculoskeletal: No signs and/or symptoms reported regarding the musculoskeletal system. Vital Signs: 16:28 BP 127 / 97; Pulse 114; Resp 20; Temp 98.0; Pulse Ox 96% on R/A; Weight 46.72 kg; aj Height 5 ft. 1 in. (154.94 cm); 17:53 BP 110 / 89; Pulse 95; Resp 18; Pulse Ox 100% on R/A; Pain 0/10; mg2 16:28 Body Mass Index 19.46 (46.72 kg, 154.94 cm) aj ED Course: 16:10 Patient arrived in ED. sb2 16:10 None, None is Private Physician. sb2 16:27 Triage completed. aj 16:28 Arm band placed on left wrist. Patient placed in an exam room. aj 16:30 Rosaura Wheeler [facility]-C [facility]. kb 16:30 Michael Yip MD is Attending Physician. kb 16:38 Steven Acuna RN is Primary Nurse. mg2 16:39 Patient has correct armband on for positive identification. mg2 16:39 Patient did not have IV access during this emergency room visit. mg2 17:14 XRAY Neck Soft Tissue In Process Unspecified. EDMS 17:53 No provider procedures requiring assistance completed. mg2 Administered Medications: 17:52 Drug: GI Cocktail without - (Maalox Suspension 30 ml, Lidocaine Liquid 2 % 15 mg2 ml) Route: PO; 17:53 Follow up: Response: No adverse reaction; Medication administered at discharge. mg2 Outcome: 17:45 Discharge ordered by . kb 17:53 Discharged to home ambulatory, with family. mg2 17:53 Condition: stable 17:53 Discharge instructions given to patient, family, Instructed on discharge instructions, follow up and referral plans. Demonstrated understanding of instructions, follow-up care, medications. 17:54 Patient left the ED. mg2 Signatures: Dispatcher [employer] EDMS Rosaura Wheeler, STRATEGIC PLANNING ANALYST-C AMANDA-Rayne Campos, RN RN Karen Lopez sb2 Steven Acuna, RN RN mg2
--- NOTE | 2018-10-26 17:46 | EDPHYS ---
Physician Documentation [facility] Name: Ester Hagen Age: 28 yrs Sex: Female : 1990 Arrival Date: 10/26/2018 Time: 16:10 Bed 30 Private MD: None, None ED Physician Michael Yip HPI: 10/26 17:08 This 28 yrs old Black Female presents to ER via Ambulatory with complaints of Foreign kb Body In Throat. 17:08 The patient or guardian reports the patient has a suspected foreign body, of the kb throat. The reported likely foreign body is gonzalez stem. Onset: The symptoms/episode began/occurred yesterday. Current symptoms: foreign body sensation. Treatment Prior to Arrival: tried to flush, tried to vomit. The patient has not experienced similar symptoms in the past. The patient has not recently seen a physician. Pt reports she was eating cherries last night and thinks she got a gonzalez stem stuck in her throat. Reports FB sensation. Pt has drank water and soda, ate multiple things. Has been able to tolerate PO intake. Speaking in full sentences. No resp distress. No vomiting. 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 - Social history:: Smoking status: Patient/guardian denies using tobacco. - Ebola Screening: : Patient negative for fever greater than or equal to 101.5 degrees Fahrenheit, and additional compatible Ebola Virus Disease symptoms Patient denies exposure to infectious person Patient denies travel to an Ebola-affected area in the 21 days before illness onset No symptoms or risks identified at this time. ROS: 17:08 Constitutional: Negative for fever, chills, and weight loss, Cardiovascular: Negative kb for chest pain, palpitations, and edema, Respiratory: Negative for shortness of breath, cough, wheezing, and pleuritic chest pain, Abdomen/GI: Negative for abdominal pain, nausea, vomiting, diarrhea, and constipation, MS/Extremity: Negative for injury and deformity, Skin: Negative for injury, rash, and discoloration, Neuro: Negative for headache, weakness, numbness, tingling, and seizure. 17:08 ENT: Positive for foreign body sensation. Exam: 17:08 Constitutional: This is a well developed, well nourished patient who is awake, alert, kb and in no acute distress. Head/Face: Normocephalic, atraumatic. ENT: Nares patent. No nasal discharge, no septal abnormalities noted. Tympanic membranes are normal and external auditory canals are clear. Oropharynx with no redness, swelling, or masses, exudates, or evidence of obstruction, uvula midline. Mucous membranes moist. Neck: Trachea midline, no thyromegaly or masses palpated, and no cervical lymphadenopathy. Supple, full range of motion without nuchal rigidity, or vertebral point tenderness. No Meningismus. Chest/axilla: Normal chest wall appearance and motion. Nontender with no deformity. No lesions are appreciated. Cardiovascular: Regular rate and rhythm with a normal S1 and S2. No gallops, murmurs, or rubs. Normal PMI, no JVD. No pulse deficits. Respiratory: Lungs have equal breath sounds bilaterally, clear to auscultation and percussion. No rales, rhonchi or wheezes noted. No increased work of breathing, no retractions or nasal flaring. Abdomen/GI: Soft, non-tender, with normal bowel sounds. No distension or tympany. No guarding or rebound. No evidence of tenderness throughout. Skin: Warm, dry with normal turgor. Normal color with no rashes, no lesions, and no evidence of cellulitis. MS/ Extremity: Pulses equal, no cyanosis. Neurovascular intact. Full, normal range of motion. Neuro: Awake and alert, GCS 15, oriented to person, place, time, and situation. Cranial nerves II-XII grossly intact. Motor strength 5/5 in all extremities. Sensory grossly intact. Cerebellar exam normal. Normal gait. Vital Signs: 16:28 BP 127 / 97; Pulse 114; Resp 20; Temp 98.0; Pulse Ox 96% on R/A; Weight 46.72 kg; aj Height 5 ft. 1 in. (154.94 cm); 17:53 BP 110 / 89; Pulse 95; Resp 18; Pulse Ox 100% on R/A; Pain 0/10; mg2 16:28 Body Mass Index 19.46 (46.72 kg, 154.94 cm) gali MDM: 16:30 Patient medically screened. kb 17:07 Data reviewed: vital signs, nurses notes. Data interpreted: Pulse oximetry: on room air kb is 96 %. Interpretation: normal. 17:45 Counseling: I had a detailed discussion with the patient and/or guardian regarding: the kb historical points, exam findings, and any diagnostic results supporting the discharge/admit diagnosis, radiology results, the need for outpatient follow up, a district traffic chief, to return to the emergency department if symptoms worsen or persist or if there are any questions or concerns that arise at home. 10/26 16:45 Order name: XRAY Neck Soft Tissue; Complete Time: 17:25 kb Administered Medications: 17:52 Drug: GI Cocktail without - (Maalox Suspension 30 ml, Lidocaine Liquid 2 % 15 mg2 ml) Route: PO; 17:53 Follow up: Response: No adverse reaction; Medication administered at discharge. mg2 Disposition: 10/27 06:57 Co-signature as Attending Physician, Michael Yip MD I agree with the assessment and tomás plan of care. Disposition: 10/26/18 17:45 Discharged to Home. Impression: Pain in throat. - Condition is Stable. - Discharge Instructions: Swallowed Foreign Body, Adult, [id number]. - Medication Reconciliation Form, Thank You Letter, Antibiotic Education, Prescription Opioid Use form. - Follow up: Emergency Department; When: As needed; Reason: Worsening of condition. Follow up: Private Physician; When: 2 - 3 days; Reason: Recheck today's complaints, Continuance of care, Re-evaluation by your physician. Signatures: Dispatcher [employer] EDAZ Rosaura Wheeler, DIESEL ENGINE PIPE FITTER-C AMANDA-Rayne Campos RN RN aj Anderson, Corey, MD MD cha Gardose, Michele, RN RN mg2 Corrections: (The following items were deleted from the chart) 10/26 17:54 17:45 10/26/2018 17:45 Discharged to Home. Impression: Pain in throat. Condition is mg2 Stable. Forms are Medication Reconciliation Form, Thank You Letter, Antibiotic Education, Prescription Opioid Use. Follow up: Emergency Department; When: As needed; Reason: Worsening of condition. Follow up: Private Physician; When: 2 - 3 days; Reason: Recheck today's complaints, Continuance of care, Re-evaluation by your physician. kb
[2018-10-26] MEDS ORDERED: LIDOCAINE VISCOUS 2% SOLN 15 ML UDC ONE (17:58)
[2018-10-26] MEDS ORDERED: MAGNE/ALUM HYDROXD 30 ML UCUP ONE (17:58)
== END 2018-10-26 17:54 | disposition home or self-care (01) ==
LOC: ER 16:00
DX: R07.0 Pain in throat (principal); E11.9 Type 2 diabetes mellitus without complications; Z91.041 Radiographic dye allergy status
CPT/HCPCS: 70360; 99283

== ENCOUNTER 2018-12-12 08:57 | Emergency (ER) | payer OTHER ==
--- OUTSIDE RECORDS SUMMARY | 2018-12-12 09:19 | XMS REPORT ---
:1990 [facility] [address] [place] [address] Dr. Awad [address] [place] [id number] Care Team Providers Name Role Phone MARCO HUIZARN Unavailable Unavailable O'MONE, MOY MCGEE Unavailable Unavailable RANDALL, SHANON SANTILLAN Unavailable Unavailable REDDFLIP Unavailable Unavailable SAMWAYS, ANNIKA TRUJILLO Unavailable Unavailable BEERS, JERALD GIRON Unavailable Unavailable AYANNA, ETHAN SALLY Unavailable Unavailable JESSICAMXAX Unavailable Unavailable ZINDANI, YOSELYN Unavailable Unavailable JARROUNNAMDI, TRACI G. Unavailable Unavailable THOMAS MAST Unavailable Unavailable URVASHI NATHAN Unavailable Unavailable CARMENRYAN CANALES Unavailable Unavailable TATAINA TURNER Unavailable Unavailable JACQUE ROY Unavailable Unavailable Problems This patient has no known problems. Allergies, Adverse Reactions, Alerts This patient has no known allergies or adverse reactions. Medications This patient has no known medications. Results Test Description Test Time Test Comments Text Results Atomic Results Result Comments FUNGUS CULTURE + SMEAR 2018-12-06 18:00:00 Test Item Value Reference Range Comments CULTURE (BEAKER) (test bqub=3427) No fungus isolated in 28 days FUNGUS SMEAR (BEAKER) (test qjfr=1483) No fungi seen POCT-GLUCOSE [id number] 12:41:00 Test Item Value Reference Range Comments POC-GLUCOSE METER (BEAKER) 59 mg/dL 70-110 Notified JORDON STAPLETON/TESTED AT [facility] (test dhbc=4818) [address] [place] [address] POCT-GLUCOSE [id number] 08:51:00 Test Item Value Reference Range Comments POC-GLUCOSE METER (BEAKER) 461 mg/dL 70-110 Notified JORDON STAPLETON/TESTED AT [facility] (test ksdr=0768) [address] [place] [address] [id number] 06:03:00 Test Item Value Reference Range Comments PHOSPHORUS (BEAKER) (test eqlu=533) 3.7 mg/dL 2.3-4.7 [id number] 06:03:00 Test Item Value Reference Range Comments MAGNESIUM (BEAKER) (test vcxw=183) 1.6 mg/dL 1.6-2.6 BASIC METABOLIC [id number] 06:03:00 Test Item Value Reference Range Comments SODIUM (BEAKER) (test 134 meq/L 136-145 yxut=403) POTASSIUM (BEAKER) (test 4.5 meq/L 3.5-5.1 hulq=342) CHLORIDE (BEAKER) (test 97 meq/L 98-107 fqrc=220) CO2 (BEAKER) (test 33 meq/L 22-29 wqbf=413) BLOOD UREA NITROGEN 28 mg/dL 7-21 (BEAKER) (test tpmg=854) CREATININE (BEAKER) (test 0.73 mg/dL 0.57-1.25 lumr=369) GLUCOSE RANDOM (BEAKER) 285 mg/dL 70-105 (test wymn=729) CALCIUM (BEAKER) (test 8.4 mg/dL 8.4-10.2 wknr=804) EGFR (BEAKER) (test 117 mL/min/1.73 sq m ESTIMATED GFR IS NOT ejfn=9263) ACCURATE CREATININE CLEARANCE IN PREDICTING GLOMERULAR FILTRATION RATE. ESTIMATED GFR IS NOT APPLICABLE FOR DIALYSIS PATIENTS. POCT-GLUCOSE [id number] 21:37:00 Test Item Value Reference Range Comments POC-GLUCOSE METER (BEAKER) 207 mg/dL 70-110 TESTED AT [address] (test ibbo=3724) [facility] [address] POCT-GLUCOSE [id number] 18:28:00 Test Item Value Reference Range Comments POC-GLUCOSE METER (BEAKER) 207 mg/dL 70-110 TESTED AT [address] (test xtzz=5607) [facility] [address] POCT-GLUCOSE [id number] 12:15:00 Test Item Value Reference Range Comments POC-GLUCOSE METER (BEAKER) 91 mg/dL 70-110 TESTED AT [address] (test pzbg=0643) [facility] [address] POCT-GLUCOSE [id number] 08:38:00 Test Item Value Reference Range Comments POC-GLUCOSE METER (BEAKER) 189 mg/dL 70-110 TESTED AT [facility] [address] [facility] (test nbzu=1875) [facility] [address] [id number] 05:25:00 Test Item Value Reference Range Comments PHOSPHORUS (BEAKER) (test cxaw=171) 4.0 mg/dL 2.3-4.7 [id number] 05:25:00 Test Item Value Reference Range Comments MAGNESIUM (BEAKER) (test gdrp=673) 1.4 mg/dL 1.6-2.6 BASIC METABOLIC [id number] 05:25:00 Test Item Value Reference Range Comments SODIUM (BEAKER) (test 134 meq/L 136-145 hwrv=551) POTASSIUM (BEAKER) (test 4.8 meq/L 3.5-5.1 uizo=215) CHLORIDE (BEAKER) (test 95 meq/L 98-107 vbsb=783) CO2 (BEAKER) (test 32 meq/L 22-29 zbaj=569) BLOOD UREA NITROGEN 30 mg/dL 7-21 (BEAKER) (test bouk=531) CREATININE (BEAKER) (test 0.78 mg/dL 0.57-1.25 werg=362) GLUCOSE RANDOM (BEAKER) 288 mg/dL 70-105 (test jhdp=224) CALCIUM (BEAKER) (test 8.3 mg/dL 8.4-10.2 vrvz=003) EGFR (BEAKER) (test 108 mL/min/1.73 sq m ESTIMATED GFR IS NOT xihr=4685) ACCURATE CREATININE CLEARANCE IN PREDICTING GLOMERULAR FILTRATION RATE. ESTIMATED GFR IS NOT APPLICABLE FOR DIALYSIS PATIENTS. POCT-GLUCOSE [id number] 21:35:00 Test Item Value Reference Range Comments POC-GLUCOSE METER (BEAKER) 170 mg/dL 70-110 TESTED AT [facility] [address] [facility] (test vsaa=4991) [facility] [address] POCT-GLUCOSE [id number] 18:20:00 Test Item Value Reference Range Comments POC-GLUCOSE METER (BEAKER) 276 mg/dL 70-110 TESTED AT [address] (test vzds=0200) [facility] [address] RAD, ABDOMEN/KUB, 1 VIEW [id number] 15:00:00Reason for exam:->Abd distensionShould this be performed at the bedside?->YesFINAL REPORT Abdomen x-ray Clinical Diagnosis: Abdominal distentionComparison : November 12, 2018Views: One Report:Abdomen:There is a nonspecific bowel gas pattern. There is no evidence of GI tract obstruction. The visible regional skeleton is intact. Fecal material is distributed throughout the colon . Calcific changes noted adjacent to the left hip which is unchanged as compared to the prior study. . There is no evidence of increased calcification overlying the expected location of the right upper quadrant or gallbladder fossa . There is no mural edema or definite freeintraperitoneal air. There is no evidence of organomegaly Impression:Fecal material distributed throughout the colon. Nonspecific abdomen exam. Signed: Sravanthi Floresort Verified Date/Time: 11/16/2018 15:00:01 Reading Location: [facility] [id number] Consult Reading Room 03: 00 PMPOCT-GLUCOSE [id number] 13:21:00 Test Item Value Reference Range Comments POC-GLUCOSE METER (BEAKER) 108 mg/dL 70-110 TESTED AT [address] (test aizr=0287) [facility] [address] BASIC METABOLIC [id number] 08:06:00 Test Item Value Reference Range Comments SODIUM (BEAKER) (test 138 meq/L 136-145 ivsh=362) POTASSIUM (BEAKER) (test 4.5 meq/L 3.5-5.1 zney=711) CHLORIDE (BEAKER) (test 92 meq/L 98-107 jqtn=746) CO2 (BEAKER) (test 40 meq/L 22-29 odyn=514) BLOOD UREA NITROGEN 25 mg/dL 7-21 (BEAKER) (test ltsg=327) CREATININE (BEAKER) (test 0.71 mg/dL 0.57-1.25 xguc=439) GLUCOSE RANDOM (BEAKER) 162 mg/dL 70-105 (test rwet=935) CALCIUM (BEAKER) (test 8.2 mg/dL 8.4-10.2 kijt=454) EGFR (BEAKER) (test 121 mL/min/1.73 sq m ESTIMATED GFR IS NOT kxug=6279) ACCURATE CREATININE CLEARANCE IN PREDICTING GLOMERULAR FILTRATION RATE. ESTIMATED GFR IS NOT APPLICABLE FOR DIALYSIS PATIENTS. [id number] 08:03:00 Test Item Value Reference Range Comments PHOSPHORUS (BEAKER) (test lfrz=019) 3.2 mg/dL 2.3-4.7 [id number] 08:03:00 Test Item Value Reference Range Comments MAGNESIUM (BEAKER) (test yubo=213) 1.1 mg/dL 1.6-2.6 HEPATIC FUNCTION [id number] 08:03:00 Test Item Value Reference Range Comments TOTAL PROTEIN (BEAKER) (test khhj=895) 6.4 gm/dL 6.0-8.3 ALBUMIN (BEAKER) (test ctdm=0952) 2.5 g/dL 3.5-5.0 BILIRUBIN TOTAL (BEAKER) (test zsjp=661) 0.1 mg/dL 0.2-1.2 BILIRUBIN DIRECT (BEAKER) (test qvuf=525) 0.1 mg/dL 0.1-0.5 ALKALINE PHOSPHATASE (BEAKER) (test ozrr=160) 126 U/L 40-150 AST (SGOT) (BEAKER) (test eovh=053) 29 U/L 5-34 ALT (SGPT) (BEAKER) (test tfgs=344) 35 U/L 6-55 POCT-GLUCOSE [id number] 02:11:00 Test Item Value Reference Range Comments POC-GLUCOSE METER (BEAKER) 171 mg/dL 70-110 TESTED AT [address] (test xjqr=7357) [facility] [address] POCT-GLUCOSE [id number] 22:03:00 Test Item Value Reference Range Comments POC-GLUCOSE METER (BEAKER) 264 mg/dL 70-110 TESTED AT [address] (test ppkv=3184) [facility] [address] POCT-GLUCOSE [id number] 18:03:00 Test Item Value Reference Range Comments POC-GLUCOSE METER (BEAKER) 293 mg/dL 70-110 TESTED AT [address] (test jrkl=6947) [facility] [address] POCT-GLUCOSE [id number] 12:27:00 Test Item Value Reference Range Comments POC-GLUCOSE METER (BEAKER) 125 mg/dL 70-110 TESTED AT [address] (test hsuw=5522) [place] [address] POCT-GLUCOSE [id number] 08:21:00 Test Item Value Reference Range Comments POC-GLUCOSE METER (BEAKER) 180 mg/dL 70-110 TESTED AT [facility] [address] [facility] (test hpod=1751) [facility] [address] [id number] 07:20:00 Test Item Value Reference Range Comments BLOOD UREA NITROGEN (BEAKER) (test tifg=382) 18 mg/dL 7-21 [id number] 07:20:00 Test Item Value Reference Range Comments CREATININE (BEAKER) (test 0.72 mg/dL 0.57-1.25 Specimen slightly bkmr=371) hemolyzed EGFR (BEAKER) (test 119 mL/min/1.73 sq m ESTIMATED GFR IS NOT mjwt=4756) ACCURATE CREATININE CLEARANCE IN PREDICTING GLOMERULAR FILTRATION RATE. ESTIMATED GFR IS NOT APPLICABLE FOR DIALYSIS PATIENTS. CBC W/PLT COUNT & AUTO [id number] 07:03:00 Test Item Value Reference Range Comments WHITE BLOOD CELL COUNT (BEAKER) (test cduf=739) 15.3 K/ L 3.5-10.5 RED BLOOD CELL COUNT (BEAKER) (test tsvb=498) 3.58 M/ L 3.93-5.22 HEMOGLOBIN (BEAKER) (test foxn=104) 9.3 GM/DL 11.2-15.7 HEMATOCRIT (BEAKER) (test hbgk=609) 32.0 % 34.1-44.9 MEAN CORPUSCULAR VOLUME (BEAKER) (test avul=472) 89.4 fL 79.4-94.8 MEAN CORPUSCULAR HEMOGLOBIN (BEAKER) (test 26.0 pg 25.6-32.2 qyxd=467) MEAN CORPUSCULAR HEMOGLOBIN CONC (BEAKER) (test 29.1 GM/DL 32.2-35.5 avxe=769) RED CELL DISTRIBUTION WIDTH (BEAKER) (test 16.2 % 11.7-14.4 xhyp=149) PLATELET COUNT (BEAKER) (test euqp=241) 420 K/CU MM 150-450 MEAN PLATELET VOLUME (BEAKER) (test lcsg=050) 10.8 fL 9.4-12.3 NUCLEATED RED BLOOD CELLS (BEAKER) (test 0 /100 WBC 0-0 mwmw=716) NEUTROPHILS RELATIVE PERCENT (BEAKER) (test 86 % fyks=389) LYMPHOCYTES RELATIVE PERCENT (BEAKER) (test 7 % jywa=314) MONOCYTES RELATIVE PERCENT (BEAKER) (test 5 % qmra=899) EOSINOPHILS RELATIVE PERCENT (BEAKER) (test 0 % vdcm=517) BASOPHILS RELATIVE PERCENT (BEAKER) (test 0 % ozcj=629) NEUTROPHILS ABSOLUTE COUNT (BEAKER) (test 13.20 K/ L 1.56-6.13 ncgw=387) LYMPHOCYTES ABSOLUTE COUNT (BEAKER) (test 1.07 K/ L 1.18-3.74 vafy=128) MONOCYTES ABSOLUTE COUNT (BEAKER) (test 0.75 K/ L 0.24-0.36 bmor=815) EOSINOPHILS ABSOLUTE COUNT (BEAKER) (test 0.03 K/ L 0.04-0.36 gexj=909) BASOPHILS ABSOLUTE COUNT (BEAKER) (test 0.02 K/ L 0.01-0.08 tsil=988) IMMATURE GRANULOCYTES-RELATIVE PERCENT (BEAKER) 1 % 0-1 (test gojc=6904) POCT-GLUCOSE [id number] 02:14:00 Test Item Value Reference Range Comments POC-GLUCOSE METER (BEAKER) 239 mg/dL 70-110 TESTED AT [address] (test asuv=2927) [place] [address] POCT-GLUCOSE [id number] 21:33:00 Test Item Value Reference Range Comments POC-GLUCOSE METER (BEAKER) 108 mg/dL 70-110 TESTED AT [address] (test iivi=5030) [place] [address] POCT-GLUCOSE [id number] 17:52:00 Test Item Value Reference Range Comments POC-GLUCOSE METER (BEAKER) 101 mg/dL 70-110 TESTED AT [address] (test ufxn=8303) [place] [address] POCT-GLUCOSE [id number] 13:35:00 Test Item Value Reference Range Comments POC-GLUCOSE METER (BEAKER) 308 mg/dL 70-110 Notified JORDON STAPLETON/TESTED AT [facility] (test ryaa=6627) [address] [place] [address] U/S, ABDOMINAL, [id number] 12:38:00Abdomen limited area? Add comment if clarification is needed.->LiverReason for exam:->please evaluate for cirrhosisFINAL REPORT Right upper quadrant abdominal ultrasound Clinical History: Cirrhosis COMPARISON: September 29, 2018 Discussion : Sonographic evaluation of the right upper quadrant ofthe abdomen is performed. The liver has normal size and measures 14.7 cm in length. There is coarse liver echotexture, without focal mass. There is no intra or extrahepatic biliary dilatation. The common bile duct measures 3 mm. The gallbladder is contracted without evidence of gallbladder wall thickening, cholelithiasis, pericholecystic fluid, or sonographic Isbell's sign. The main portal vein diameter is normal, measuring 11 mm. The pancreatic head, body, and proximal tail demonstrate no abnormality. There is no ascites. The right kidney measures 11.4 cm in length and is normal in size. There is no renal mass, hydronephrosis , or shadowing renal calculus. Segments of the inferior vena cava and aorta visualized demonstrate no abnormality. Impression: 1. Coarse liver echotexture without other sonographic indication of liver cirrhosis. Clinical correlation is recommended. If indicated, elastography can be performed for further assessment. 2. Contracted gallbladder secondary to recent meal. Signed: Kareem Jacobs MDReport Verified Date/Time: 11/14/2018 12:38:57 Reading Location: [address] Ultrasound Reading Room [facility] [id number] 11:57:00 Test Item Value Reference Range Comments CULTURE (BEAKER) (test PSEUDOMONAS 4+ Pseudomonas tdms=3747) AERUGINOSA aeruginosa (MUCOID-PHENOTYPE) (Mucoid-phenotype) Amikacin (test code=1) [...] >4 CULTURE (BEAKER) (test PSEUDOMONAS 4+ Pseudomonas llyv=0477) AERUGINOSA aeruginosa Amikacin (test code=1) Susceptible 0-16 [...] or >4 1+ Normal respiratory derick presentPOCT-GLUCOSE [id number] 09:19:00 Test Item Value Reference Range Comments POC-GLUCOSE METER (Bread) 385 mg/dL 70-110 Notified JORDON STAPLETON/TESTED AT [facility] (test sjfe=9693) [address] [facility] [address] COMPREHENSIVE METABOLIC [id number] 08:26:00 Test Item Value Reference Range Comments TOTAL PROTEIN (BEAKER) 6.7 gm/dL 6.0-8.3 (test oude=959) ALBUMIN (BEAKER) (test 2.6 g/dL 3.5-5.0 eztr=3125) ALKALINE PHOSPHATASE 138 U/L 40-150 (BEAKER) (test dnpt=269) BILIRUBIN TOTAL (BEAKER) 0.1 mg/dL 0.2-1.2 (test jkmj=880) SODIUM (BEAKER) (test 138 meq/L 136-145 bfum=120) POTASSIUM (BEAKER) (test 4.3 meq/L 3.5-5.1 bosa=199) CHLORIDE (BEAKER) (test 95 meq/L 98-107 dzgo=051) CO2 (BEAKER) (test 36 meq/L 22-29 wdie=128) BLOOD UREA NITROGEN 23 mg/dL 7-21 (BEAKER) (test inrb=477) CREATININE (BEAKER) (test 0.74 mg/dL 0.57-1.25 lixe=703) GLUCOSE RANDOM (BEAKER) 180 mg/dL 70-105 (test megw=609) CALCIUM (BEAKER) (test 8.6 mg/dL 8.4-10.2 gvpo=119) AST (SGOT) (BEAKER) (test 30 U/L 5-34 wkhj=392) ALT (SGPT) (BEAKER) (test 47 U/L 6-55 puta=496) EGFR (BEAKER) (test 115 mL/min/1.73 sq ESTIMATED GFR IS NOT djbc=1868) m ACCURATE CREATININE CLEARANCE IN PREDICTING GLOMERULAR FILTRATION RATE. ESTIMATED GFR IS NOT APPLICABLE FOR DIALYSIS PATIENTS. POCT-GLUCOSE [id number] 02:51:00 Test Item Value Reference Range Comments POC-GLUCOSE METER (BEAKER) 353 mg/dL 70-110 Notified JORDON STAPLETON/TESTED AT [facility] (test mwhc=0537) [address] [place] [address] SCREEN, [id number] 22:52:00 Test Item Value Reference Range Comments TEST URINE (BEAKER) (test gdgq=583) Negative POCT-GLUCOSE [id number] 21:27:00 Test Item Value Reference Range Comments POC-GLUCOSE METER (BEAKER) 221 mg/dL 70-110 TESTED AT [address] (test onpa=5597) [place] [address] POCT-GLUCOSE [id number] 19:14:00 Test Item Value Reference Range Comments POC-GLUCOSE METER (BEAKER) 60 mg/dL 70-110 Notified JORDON STAPLETON/TESTED AT [facility] (test jion=8620) [address] [place] [address] POCT-GLUCOSE [id number] 12:58:00 Test Item Value Reference Range Comments POC-GLUCOSE METER (BEAKER) 327 mg/dL 70-110 TESTED AT [address] (test xgsw=5749) [place] [id number] POCT-GLUCOSE [id number] 08:13:00 Test Item Value Reference Range Comments POC-GLUCOSE METER (BEAKER) 372 mg/dL 70-110 TESTED AT [address] (test uxzd=9297) [place] [address] [id number] 05:57:00 Test Item Value Reference Range Comments BLOOD UREA NITROGEN (BEAKER) (test yneu=732) 14 mg/dL 7-21 [id number] 05:57:00 Test Item Value Reference Range Comments CREATININE (BEAKER) (test 0.72 mg/dL 0.57-1.25 mljv=754) EGFR (BEAKER) (test 119 mL/min/1.73 sq m ESTIMATED GFR IS NOT dhfb=6025) ACCURATE CREATININE CLEARANCE IN PREDICTING GLOMERULAR FILTRATION RATE. ESTIMATED GFR IS NOT APPLICABLE FOR DIALYSIS PATIENTS. POCT-GLUCOSE [id number] 01:39:00 Test Item Value Reference Range Comments POC-GLUCOSE METER (BEAKER) 267 mg/dL 70-110 TESTED AT [address] (test cgqe=1050) [place] [address] POCT-GLUCOSE [id number] 22:42:00 Test Item Value Reference Range Comments POC-GLUCOSE METER (BEAKER) 97 mg/dL 70-110 TESTED AT [address] (test gcca=4563) [place] [address] POCT-GLUCOSE [id number] 21:47:00 Test Item Value Reference Range Comments POC-GLUCOSE METER (BEAKER) 64 mg/dL 70-110 Notified JORDON STAPLETON/TESTED AT [facility] (test fsjk=4207) [address] [place] [address] POCT-GLUCOSE [id number] 18:48:00 Test Item Value Reference Range Comments POC-GLUCOSE METER (BEAKER) 198 mg/dL 70-110 TESTED AT [address] (test lree=7698) [place] [address] COMPREHENSIVE METABOLIC [id number] 18:06:00 Test Item Value Reference Range Comments TOTAL PROTEIN (BEAKER) 6.9 gm/dL 6.0-8.3 (test tdse=173) ALBUMIN (BEAKER) (test 2.6 g/dL 3.5-5.0 nyve=6659) ALKALINE PHOSPHATASE 151 U/L 40-150 (BEAKER) (test mdwz=414) BILIRUBIN TOTAL (BEAKER) 0.1 mg/dL 0.2-1.2 (test ewqi=938) SODIUM (BEAKER) (test 139 meq/L 136-145 qsak=947) POTASSIUM (BEAKER) (test 3.6 meq/L 3.5-5.1 bbyd=134) CHLORIDE (BEAKER) (test 99 meq/L 98-107 dbjh=551) CO2 (BEAKER) (test 30 meq/L 22-29 okbp=471) BLOOD UREA NITROGEN 12 mg/dL 7-21 (BEAKER) (test cfsu=818) CREATININE (BEAKER) (test 0.80 mg/dL 0.57-1.25 vzer=962) GLUCOSE RANDOM (BEAKER) 169 mg/dL 70-105 (test lsos=385) CALCIUM (BEAKER) (test 8.9 mg/dL 8.4-10.2 gbrs=482) AST (SGOT) (BEAKER) (test 170 U/L 5-34 hgrg=035) ALT (SGPT) (BEAKER) (test 77 U/L 6-55 ieic=683) EGFR (BEAKER) (test 105 mL/min/1.73 sq ESTIMATED GFR IS NOT yqrw=9941) m ACCURATE CREATININE CLEARANCE IN PREDICTING GLOMERULAR FILTRATION RATE. ESTIMATED GFR IS NOT APPLICABLE FOR DIALYSIS PATIENTS. [id number] 18:06:00 Test Item Value Reference Range Comments LIPASE (BEAKER) (test hzjd=754) < U/L 8-78 URINALYSIS WITH MICROSCOPIC IF [id number] 17:06:00 Test Item Value Reference Range Comments COLOR (BEAKER) (test hevp=205) Yellow CLARITY (BEAKER) (test mxca=190) Clear SPECIFIC GRAVITY UA (BEAKER) (test bqcl=111) 1.014 1.001-1.035 PH UA (BEAKER) (test lxja=419) 7.0 5.0-8.0 PROTEIN UA (BEAKER) (test ytyo=501) 70 mg/dL Negative GLUCOSE UA (BEAKER) (test mwmx=262) Negative Negative KETONES UA (BEAKER) (test xlfy=350) Trace Negative BILIRUBIN UA (BEAKER) (test cjeb=325) Negative Negative BLOOD UA (BEAKER) (test skvt=941) Negative Negative NITRITE UA (BEAKER) (test qrys=530) Negative Negative LEUKOCYTE ESTERASE UA (BEAKER) (test nuls=021) Negative Negative UROBILINOGEN UA (BEAKER) (test vbjo=446) 0.2 mg/dL 0.2-1.0 SOURCE(BEAKER) (test qvwb=0315) URINALYSIS [id number] 17:06:00 Test Item Value Reference Range Comments RBC UA (BEAKER) (test hsug=811) 1 /HPF WBC UA (BEAKER) (test hwdf=431) 8 /HPF SQUAMOUS EPITHELIAL (BEAKER) (test rzdn=379) 1 /HPF POCT-GLUCOSE [id number] 13:05:00 Test Item Value Reference Range Comments POC-GLUCOSE METER (BEAKER) 120 mg/dL 70-110 TESTED AT [address] (test cvky=9681) [facility] [address] RAD, ABDOMEN/KUB, 1 VIEW [id number] 12:20:00Reason for exam:->abdominal painFINAL REPORT ONE VIEW ABDOMEN HISTORY: Abdominal pain COMPARISON: 08/24/2018 FINDINGS: Single supine AP image of the abdomen was obtained. Gas and fecal material is noted scattered throughout large intestine to the level of the rectum. There is gas in nondilated stomach. No dilated loops of large or small bowel are visualized. There is a chronic calcification lateral to the left hip. No other skeletal abnormalities are identified. No calcifications are seen in the region of the kidneys. IMPRESSION: Unremarkable bowel gas pattern. Signed: Leonarda Rosaseport Verified Date/Time: 2018 12:20:31 Reading Location: [address] Transitional Reading Room [id number] 08:09:00 Test Item Value Reference Range Comments BLOOD UREA NITROGEN (BEAKER) (test bunk=249) 12 mg/dL 7-21 [id number] 08:09:00 Test Item Value Reference Range Comments CREATININE (BEAKER) (test 0.72 mg/dL 0.57-1.25 wnib=147) EGFR (BEAKER) (test 119 mL/min/1.73 sq m ESTIMATED GFR IS NOT nnlx=2489) ACCURATE CREATININE CLEARANCE IN PREDICTING GLOMERULAR FILTRATION RATE. ESTIMATED GFR IS NOT APPLICABLE FOR DIALYSIS PATIENTS. POCT-GLUCOSE [id number] 08:05:00 Test Item Value Reference Range Comments POC-GLUCOSE METER (BEAKER) 144 mg/dL 70-110 TESTED AT [address] (test azoi=6941) [place] [address] POCT-GLUCOSE [id number] 03:58:00 Test Item Value Reference Range Comments POC-GLUCOSE METER (BEAKER) 316 mg/dL 70-110 Notified JORDON STAPLETON/TESTED AT [facility] (test tcnt=6122) [address] [place] [address] POCT-GLUCOSE [id number] 21:17:00 Test Item Value Reference Range Comments POC-GLUCOSE METER (BEAKER) 238 mg/dL 70-110 TESTED AT [address] (test ilsw=9228) [place] [address] POCT-GLUCOSE [id number] 18:22:00 Test Item Value Reference Range Comments POC-GLUCOSE METER (BEAKER) 278 mg/dL 70-110 TESTED AT [address] (test jjsy=1149) [place] [address] POCT-GLUCOSE [id number] 14:14:00 Test Item Value Reference Range Comments POC-GLUCOSE METER (BEAKER) 137 mg/dL 70-110 TESTED AT [address] (test rwim=0468) [place] [address] POCT-GLUCOSE [id number] 09:28:00 Test Item Value Reference Range Comments POC-GLUCOSE METER (BEAKER) 356 mg/dL 70-110 TESTED AT [address] (test hufr=1718) [place] [address] [id number] 07:01:00 Test Item Value Reference Range Comments BLOOD UREA NITROGEN (BEAKER) (test vhkl=895) 17 mg/dL 7-21 [id number] 07:01:00 Test Item Value Reference Range Comments CREATININE (BEAKER) (test 0.77 mg/dL 0.57-1.25 wqfp=096) EGFR (BEAKER) (test 110 mL/min/1.73 sq m ESTIMATED GFR IS NOT paav=4533) ACCURATE CREATININE CLEARANCE IN PREDICTING GLOMERULAR FILTRATION RATE. ESTIMATED GFR IS NOT APPLICABLE FOR DIALYSIS PATIENTS. POCT-GLUCOSE [id number] 02:54:00 Test Item Value Reference Range Comments POC-GLUCOSE METER (BEAKER) 347 mg/dL 70-110 Notified JORDON STAPLETON/TESTED AT [facility] (test xxzt=7670) [address] [facility] [address] POCT-GLUCOSE [id number] 22:43:00 Test Item Value Reference Range Comments POC-GLUCOSE METER (BEAKER) 139 mg/dL 70-110 TESTED AT [address] (test xmfh=9370) [facility] [address] POCT-GLUCOSE [id number] 19:28:00 Test Item Value Reference Range Comments POC-GLUCOSE METER (BEAKER) 91 mg/dL 70-110 TESTED AT [address] (test opun=2756) [facility] [address] POCT-GLUCOSE [id number] 18:09:00 Test Item Value Reference Range Comments POC-GLUCOSE METER (BEAKER) 137 mg/dL 70-110 TESTED AT [facility] [address] [place] [address] (test ubkp=3818) [facility] [address] BASIC METABOLIC [id number] 17:48:00 Test Item Value Reference Range Comments SODIUM (BEAKER) (test 139 meq/L 136-145 gkra=168) POTASSIUM (BEAKER) (test 3.5 meq/L 3.5-5.1 tzgx=357) CHLORIDE (BEAKER) (test 101 meq/L 98-107 wwlc=786) CO2 (BEAKER) (test 29 meq/L 22-29 ursp=350) BLOOD UREA NITROGEN 19 mg/dL 7-21 (BEAKER) (test gczo=256) CREATININE (BEAKER) (test 0.79 mg/dL 0.57-1.25 batk=025) GLUCOSE RANDOM (BEAKER) 119 mg/dL 70-105 (test xqxl=657) CALCIUM (BEAKER) (test 8.7 mg/dL 8.4-10.2 askz=343) EGFR (BEAKER) (test 107 mL/min/1.73 sq m ESTIMATED GFR IS NOT tzzq=8118) ACCURATE CREATININE CLEARANCE IN PREDICTING GLOMERULAR FILTRATION RATE. ESTIMATED GFR IS NOT APPLICABLE FOR DIALYSIS PATIENTS. POCT-GLUCOSE [id number] 12:39:00 Test Item Value Reference Range Comments POC-GLUCOSE METER (BEAKER) 380 mg/dL 70-110 Notified JORDON STAPLETON/TESTED AT [facility] (test tvfm=1741) [address] [place] [address] POCT-GLUCOSE [id number] 08:22:00 Test Item Value Reference Range Comments POC-GLUCOSE METER (BEAKER) 266 mg/dL 70-110 TESTED AT [address] (test vrby=2501) [place] [address] [id number] 07:14:00 Test Item Value Reference Range Comments BLOOD UREA NITROGEN (BEAKER) (test lwwt=097) 23 mg/dL 7-21 [id number] 07:14:00 Test Item Value Reference Range Comments CREATININE (BEAKER) (test 0.80 mg/dL 0.57-1.25 esdz=580) EGFR (BEAKER) (test 105 mL/min/1.73 sq m ESTIMATED GFR IS NOT wnsp=9852) ACCURATE CREATININE CLEARANCE IN PREDICTING GLOMERULAR FILTRATION RATE. ESTIMATED GFR IS NOT APPLICABLE FOR DIALYSIS PATIENTS. POCT-GLUCOSE [id number] 05:06:00 Test Item Value Reference Range Comments POC-GLUCOSE METER (BEAKER) 135 mg/dL 70-110 TESTED AT [address] (test wdgy=0799) [place] [address] POCT-GLUCOSE [id number] 21:42:00 Test Item Value Reference Range Comments POC-GLUCOSE METER (BEAKER) 226 mg/dL 70-110 TESTED AT [address] (test upms=1503) [place] [address] POCT-GLUCOSE [id number] 21:40:00 Test Item Value Reference Range Comments POC-GLUCOSE METER (BEAKER) 238 mg/dL 70-110 TESTED AT [address] (test sutw=7397) [place] [address] BASIC METABOLIC [id number] 17:23:00 Test Item Value Reference Range Comments SODIUM (BEAKER) (test 140 meq/L 136-145 nxfs=868) POTASSIUM (BEAKER) (test 4.7 meq/L 3.5-5.1 Specimen slightly hngp=005) hemolyzed CHLORIDE (BEAKER) (test 103 meq/L 98-107 vlxe=301) CO2 (BEAKER) (test 26 meq/L 22-29 jxpi=090) BLOOD UREA NITROGEN 19 mg/dL 7-21 (BEAKER) (test ocjq=370) CREATININE (BEAKER) (test 0.96 mg/dL 0.57-1.25 Specimen slightly pmyq=656) hemolyzed GLUCOSE RANDOM (BEAKER) 181 mg/dL 70-105 (test ilah=223) CALCIUM (BEAKER) (test 8.9 mg/dL 8.4-10.2 ujkt=414) EGFR (BEAKER) (test 85 mL/min/1.73 sq m ESTIMATED GFR IS NOT gmxr=4569) ACCURATE CREATININE CLEARANCE IN PREDICTING GLOMERULAR FILTRATION RATE. ESTIMATED GFR IS NOT APPLICABLE FOR DIALYSIS PATIENTS. SPIN/CONCENTRATION [id number] 14:16:00 Test Item Value Reference Range Comments CONCENTRATION CHARGED (BEAKER) (test xdzv=0207) Done POCT-GLUCOSE [id number] 13:50:00 Test Item Value Reference Range Comments POC-GLUCOSE METER (BEAKER) 289 mg/dL 70-110 TESTED AT [facility] [address] [facility] (test cqpm=2619) [facility] [address] CF RESPIRATORY [id number] 09:17:00 Test Item Value Reference Range Comments CULTURE (BEAKER) (test PSEUDOMONAS 4+ Pseudomonas ltmz=0803) AERUGINOSA aeruginosa (MUCOID-PHENOTYPE) (Mucoid-phenotype) Amikacin (test code=1) [...] , code=25) Resistant <0 or >4 CULTURE (Alaris RoyaltyAKER) (test PSEUDOMONAS 2+ Pseudomonas fdji=6711) AERUGINOSA aeruginosa Amikacin (test code=1) Susceptible 0-16 [...] or >4 4+ Normal respiratory derick presentPOCT-GLUCOSE [id number] 08:57:00 Test Item Value Reference Range Comments POC-GLUCOSE METER (Bread) 258 mg/dL 70-110 TESTED AT [address] (test pwvv=2210) [facility] [address] [id number] 06:06:00 Test Item Value Reference Range Comments BLOOD UREA NITROGEN (Alaris RoyaltyAKER) (test tkep=750) 15 mg/dL 7-21 [id number] 06:06:00 Test Item Value Reference Range Comments CREATININE (BEAKER) (test 0.85 mg/dL 0.57-1.25 gbuq=655) EGFR (Alaris RoyaltyAKER) (test 98 mL/min/1.73 sq m ESTIMATED GFR IS NOT ckwy=7142) ACCURATE CREATININE CLEARANCE IN PREDICTING GLOMERULAR FILTRATION RATE. ESTIMATED GFR IS NOT APPLICABLE FOR DIALYSIS PATIENTS. BASIC METABOLIC [id number] 06:06:00 Test Item Value Reference Range Comments SODIUM (BEAKER) (test 135 meq/L 136-145 qmmm=140) POTASSIUM (BEAKER) (test 5.5 meq/L 3.5-5.1 zoqc=910) CHLORIDE (BEAKER) (test 99 meq/L 98-107 wsnv=066) CO2 (BEAKER) (test 31 meq/L 22-29 ejef=091) BLOOD UREA NITROGEN 15 mg/dL 7-21 (BEAKER) (test ruzp=716) CREATININE (BEAKER) (test 0.85 mg/dL 0.57-1.25 qxag=993) GLUCOSE RANDOM (BEAKER) 333 mg/dL 70-105 (test dmoa=848) CALCIUM (BEAKER) (test 8.0 mg/dL 8.4-10.2 wdcq=272) EGFR (BEAKER) (test 98 mL/min/1.73 sq m ESTIMATED GFR IS NOT zihl=7041) ACCURATE CREATININE CLEARANCE IN PREDICTING GLOMERULAR FILTRATION RATE. ESTIMATED GFR IS NOT APPLICABLE FOR DIALYSIS PATIENTS. HEMOGLOBIN [id number] 05:36:00 Test Item Value Reference Range Comments HEMOGLOBIN A1C (BEAKER) (test yhbi=508) 11.8 % 4.3-6.1 POCT-GLUCOSE [id number] 05:21:00 Test Item Value Reference Range Comments POC-GLUCOSE METER (BEAKER) 362 mg/dL 70-110 TESTED AT [address] (test nxib=7411) [facility] [address] POCT-GLUCOSE [id number] 03:44:00 Test Item Value Reference Range Comments POC-GLUCOSE METER (BEAKER) 442 mg/dL 70-110 Notified JORDON STAPLETON/TESTED AT [facility] (test tyio=2847) [address] [place] [address] COMPREHENSIVE METABOLIC [id number] 02:03:00 Test Item Value Reference Range Comments TOTAL PROTEIN (BEAKER) 7.0 gm/dL 6.0-8.3 (test jhlb=037) ALBUMIN (BEAKER) (test 2.5 g/dL 3.5-5.0 ivzw=8057) ALKALINE PHOSPHATASE 179 U/L 40-150 (BEAKER) (test mscw=974) BILIRUBIN TOTAL (BEAKER) 0.1 mg/dL 0.2-1.2 (test ndvt=031) SODIUM (BEAKER) (test 133 meq/L 136-145 tgny=596) POTASSIUM (BEAKER) (test 6.2 meq/L 3.5-5.1 uwsj=624) CHLORIDE (BEAKER) (test 99 meq/L 98-107 ndtc=122) CO2 (BEAKER) (test 28 meq/L 22-29 qpux=600) BLOOD UREA NITROGEN 14 mg/dL 7-21 (BEAKER) (test ipty=651) CREATININE (BEAKER) (test 0.89 mg/dL 0.57-1.25 idzc=277) GLUCOSE RANDOM (BEAKER) 398 mg/dL 70-105 (test szxf=758) CALCIUM (BEAKER) (test 7.7 mg/dL 8.4-10.2 knps=468) AST (SGOT) (BEAKER) (test 11 U/L 5-34 csee=164) ALT (SGPT) (BEAKER) (test 7 U/L 6-55 fcoa=227) EGFR (BEAKER) (test 93 mL/min/1.73 sq m ESTIMATED GFR IS NOT idnk=0463) ACCURATE CREATININE CLEARANCE IN PREDICTING GLOMERULAR FILTRATION RATE. ESTIMATED GFR IS NOT APPLICABLE FOR DIALYSIS PATIENTS. [id number] 01:59:00 Test Item Value Reference Range Comments PHOSPHORUS (BEAKER) (test omzk=989) 3.6 mg/dL 2.3-4.7 [id number] 01:59:00 Test Item Value Reference Range Comments MAGNESIUM (BEAKER) (test hzqw=960) 1.6 mg/dL 1.6-2.6 GAMMA GLUTAMYL TRANSFERASE (GGT)[id number] 01:59:00 Test Item Value Reference Range Comments GAMMA GLUTAMYL TRANSFERASE (BEAKER) (test zgji=559) 40 U/L 9-64 LACTIC ACID, VENOUS, WHOLE [id number] 01:57:00 Test Item Value Reference Range Comments LACTATE BLOOD VENOUS (2) (BEAKER) (test 0.9 mmol/L 0.5-2.2 zkfz=2605) CBC W/PLT COUNT & AUTO [id number] 01:40:00 Test Item Value Reference Range Comments WHITE BLOOD CELL COUNT (BEAKER) (test nbot=826) 21.2 K/ L 3.5-10.5 RED BLOOD CELL COUNT (BEAKER) (test gspo=339) 3.67 M/ L 3.93-5.22 HEMOGLOBIN (BEAKER) (test zjzd=106) 9.9 GM/DL 11.2-15.7 HEMATOCRIT (BEAKER) (test psre=207) 32.4 % 34.1-44.9 MEAN CORPUSCULAR VOLUME (BEAKER) (test duig=775) 88.3 fL 79.4-94.8 MEAN CORPUSCULAR HEMOGLOBIN (BEAKER) (test 27.0 pg 25.6-32.2 bhut=375) MEAN CORPUSCULAR HEMOGLOBIN CONC (BEAKER) (test 30.6 GM/DL 32.2-35.5 uiso=382) RED CELL DISTRIBUTION WIDTH (BEAKER) (test 15.8 % 11.7-14.4 ccxh=204) PLATELET COUNT (BEAKER) (test dvws=207) 323 K/CU MM 150-450 MEAN PLATELET VOLUME (BEAKER) (test eqtd=523) 11.1 fL 9.4-12.3 NUCLEATED RED BLOOD CELLS (BEAKER) (test 0 /100 WBC 0-0 kxse=264) NEUTROPHILS RELATIVE PERCENT (BEAKER) (test 94 % xtes=040) LYMPHOCYTES RELATIVE PERCENT (BEAKER) (test 3 % biuo=979) MONOCYTES RELATIVE PERCENT (BEAKER) (test 3 % pqdj=242) EOSINOPHILS RELATIVE PERCENT (BEAKER) (test 0 % friy=729) BASOPHILS RELATIVE PERCENT (BEAKER) (test 0 % ufvq=828) NEUTROPHILS ABSOLUTE COUNT (BEAKER) (test 19.85 K/ L 1.56-6.13 xaru=931) LYMPHOCYTES ABSOLUTE COUNT (BEAKER) (test 0.67 K/ L 1.18-3.74 fvxu=380) MONOCYTES ABSOLUTE COUNT (BEAKER) (test 0.55 K/ L 0.24-0.36 tbfq=664) EOSINOPHILS ABSOLUTE COUNT (BEAKER) (test 0.00 K/ L 0.04-0.36 piqs=990) BASOPHILS ABSOLUTE COUNT (BEAKER) (test 0.03 K/ L 0.01-0.08 zbqq=838) IMMATURE GRANULOCYTES-RELATIVE PERCENT (BEAKER) 1 % 0-1 (test pwau=0192) RAD, CHEST, 2 [id number] 21:08:00Reason for exam:->Cystic FibrosisShould this be performed at the bedside?->NoFINAL REPORT Chest 2 views 11/08/2018 9:08 PM CLINICAL HISTORY: Cystic Fibrosis COMPARISON: 09/30/2018 IMPRESSION: There are pulmonary parenchymal findings in keeping with cystic fibrosis. Superimposed acute infectious/inflammatory process should be excluded clinically. Cardiomediastinal contours are within normal limits. The central pulmonary vasculature is not engorged. A rightchest port is unchanged in position. There are no acute-appearing skeletal abnormalities. Signed: Kevin Schmidt Verified Date/Time: 11/08/2018 21:08:35 Reading Location: [facility]iology Reading Room AFB CULTURE + [id number] 12:42:00 Test Item Value Reference Range Comments CULTURE (BEAKER) (test No acid-fast bacilli isolated fspp=1740) in 42 days AFB SMEAR (BEAKER) (test No acid fast bacilli seen ncqi=864) POCT-GLUCOSE [id number] 12:08:00 Test Item Value Reference Range Comments POC-GLUCOSE METER (BEAKER) 140 mg/dL 70-110 TESTED AT [address] (test acpn=6788) [facility] [address] COMPREHENSIVE METABOLIC [id number] 10:03:00 Test Item Value Reference Range Comments TOTAL PROTEIN (BEAKER) 6.8 gm/dL 6.0-8.3 (test fgxp=741) ALBUMIN (BEAKER) (test 3.1 g/dL 3.5-5.0 vefc=7589) ALKALINE PHOSPHATASE 98 U/L 40-150 (BEAKER) (test jkci=035) BILIRUBIN TOTAL (BEAKER) 0.2 mg/dL 0.2-1.2 (test noaw=394) SODIUM (BEAKER) (test 136 meq/L 136-145 flhx=444) POTASSIUM (BEAKER) (test 4.4 meq/L 3.5-5.1 eoab=978) CHLORIDE (BEAKER) (test 97 meq/L 98-107 yksx=743) CO2 (BEAKER) (test 33 meq/L 22-29 aizu=611) BLOOD UREA NITROGEN 17 mg/dL 7-21 (BEAKER) (test jikj=875) CREATININE (BEAKER) (test 0.68 mg/dL 0.57-1.25 zhnw=615) GLUCOSE RANDOM (BEAKER) 234 mg/dL 70-105 (test zwug=068) CALCIUM (BEAKER) (test 9.1 mg/dL 8.4-10.2 grab=943) AST (SGOT) (BEAKER) (test 12 U/L 5-34 mjdq=398) ALT (SGPT) (BEAKER) (test 23 U/L 6-55 wtfo=847) EGFR (BEAKER) (test 127 mL/min/1.73 sq ESTIMATED GFR IS NOT cesv=9171) m ACCURATE CREATININE CLEARANCE IN PREDICTING GLOMERULAR FILTRATION RATE. ESTIMATED GFR IS NOT APPLICABLE FOR DIALYSIS PATIENTS. CBC W/PLT COUNT & AUTO [id number] 09:50:00 Test Item Value Reference Range Comments WHITE BLOOD CELL COUNT (BEAKER) (test gsyx=706) 10.5 K/ L 3.5-10.5 RED BLOOD CELL COUNT (BEAKER) (test dxwl=026) 4.14 M/ L 3.93-5.22 HEMOGLOBIN (BEAKER) (test obmo=570) 11.2 GM/DL 11.2-15.7 HEMATOCRIT (BEAKER) (test mupj=963) 36.8 % 34.1-44.9 MEAN CORPUSCULAR VOLUME (BEAKER) (test ompi=850) 88.9 fL 79.4-94.8 MEAN CORPUSCULAR HEMOGLOBIN (BEAKER) (test 27.1 pg 25.6-32.2 gfho=081) MEAN CORPUSCULAR HEMOGLOBIN CONC (BEAKER) (test 30.4 GM/DL 32.2-35.5 dcsn=332) RED CELL DISTRIBUTION WIDTH (BEAKER) (test 17.4 % 11.7-14.4 rfdx=551) PLATELET COUNT (BEAKER) (test wyvh=940) 302 K/CU MM 150-450 MEAN PLATELET VOLUME (BEAKER) (test banq=981) 11.2 fL 9.4-12.3 NUCLEATED RED BLOOD CELLS (BEAKER) (test 0 /100 WBC 0-0 jetr=621) NEUTROPHILS RELATIVE PERCENT (BEAKER) (test 59 % apio=738) LYMPHOCYTES RELATIVE PERCENT (BEAKER) (test 29 % zljw=434) MONOCYTES RELATIVE PERCENT (BEAKER) (test 8 % bdnn=986) EOSINOPHILS RELATIVE PERCENT (BEAKER) (test 4 % ydyb=918) BASOPHILS RELATIVE PERCENT (BEAKER) (test 0 % phbp=151) NEUTROPHILS ABSOLUTE COUNT (BEAKER) (test 6.20 K/ L 1.56-6.13 zhhf=546) LYMPHOCYTES ABSOLUTE COUNT (BEAKER) (test 3.05 K/ L 1.18-3.74 uwnb=903) MONOCYTES ABSOLUTE COUNT (BEAKER) (test 0.85 K/ L 0.24-0.36 orcv=655) EOSINOPHILS ABSOLUTE COUNT (BEAKER) (test 0.37 K/ L 0.04-0.36 fwsi=815) BASOPHILS ABSOLUTE COUNT (BEAKER) (test 0.02 K/ L 0.01-0.08 aghz=093) IMMATURE GRANULOCYTES-RELATIVE PERCENT (BEAKER) 0 % 0-1 (test xojq=6975) POCT-GLUCOSE [id number] 09:50:00 Test Item Value Reference Range Comments POC-GLUCOSE METER (BEAKER) 271 mg/dL 70-110 TESTED AT [address] (test mwzw=7562) [place] [id number] POCT-GLUCOSE [id number] 01:59:00 Test Item Value Reference Range Comments POC-GLUCOSE METER (BEAKER) 377 mg/dL 70-110 Notified JORDON STAPLETON/TESTED AT [facility] (test egxb=6666) [address] [place], [place] [id number] POCT-GLUCOSE [id number] 21:37:00 Test Item Value Reference Range Comments POC-GLUCOSE METER (BEAKER) 92 mg/dL 70-110 TESTED AT [address] (test huqo=7401) [place] [id number] POCT-GLUCOSE [id number] 17:50:00 Test Item Value Reference Range Comments POC-GLUCOSE METER (BEAKER) 183 mg/dL 70-110 TESTED AT [address] (test skod=9587) [place] [id number] POCT-GLUCOSE [id number] 13:40:00 Test Item Value Reference Range Comments POC-GLUCOSE METER (BEAKER) 230 mg/dL 70-110 TESTED AT [address] (test zrcr=1825) [place] [address] COMPREHENSIVE METABOLIC [id number] 10:59:00 Test Item Value Reference Range Comments TOTAL PROTEIN (BEAKER) 7.0 gm/dL 6.0-8.3 (test rfps=682) ALBUMIN (BEAKER) (test 3.2 g/dL 3.5-5.0 gzxy=0938) ALKALINE PHOSPHATASE 100 U/L 40-150 (BEAKER) (test loba=079) BILIRUBIN TOTAL (BEAKER) 0.2 mg/dL 0.2-1.2 (test ihpd=878) SODIUM (BEAKER) (test 135 meq/L 136-145 culm=934) POTASSIUM (BEAKER) (test 4.3 meq/L 3.5-5.1 dygg=959) CHLORIDE (BEAKER) (test 97 meq/L 98-107 xinr=248) CO2 (BEAKER) (test 32 meq/L 22-29 nkth=342) BLOOD UREA NITROGEN 13 mg/dL 7-21 (BEAKER) (test nfeb=345) CREATININE (BEAKER) (test 0.67 mg/dL 0.57-1.25 yzuc=328) GLUCOSE RANDOM (BEAKER) 223 mg/dL 70-105 (test wubh=522) CALCIUM (BEAKER) (test 9.1 mg/dL 8.4-10.2 ghhk=487) AST (SGOT) (BEAKER) (test 14 U/L 5-34 qfql=218) ALT (SGPT) (BEAKER) (test 27 U/L 6-55 lrub=966) EGFR (BEAKER) (test 129 mL/min/1.73 sq ESTIMATED GFR IS NOT dluy=3870) m ACCURATE CREATININE CLEARANCE IN PREDICTING GLOMERULAR FILTRATION RATE. ESTIMATED GFR IS NOT APPLICABLE FOR DIALYSIS PATIENTS. CBC W/PLT COUNT & AUTO [id number] 10:45:00 Test Item Value Reference Range Comments WHITE BLOOD CELL COUNT (BEAKER) (test jzpu=512) 12.9 K/ L 3.5-10.5 RED BLOOD CELL COUNT (BEAKER) (test wxpg=434) 4.07 M/ L 3.93-5.22 HEMOGLOBIN (BEAKER) (test hofw=298) 11.0 GM/DL 11.2-15.7 HEMATOCRIT (BEAKER) (test dmfc=401) 36.6 % 34.1-44.9 MEAN CORPUSCULAR VOLUME (BEAKER) (test gwcm=862) 89.9 fL 79.4-94.8 MEAN CORPUSCULAR HEMOGLOBIN (BEAKER) (test 27.0 pg 25.6-32.2 fmhi=267) MEAN CORPUSCULAR HEMOGLOBIN CONC (BEAKER) (test 30.1 GM/DL 32.2-35.5 nkjo=688) RED CELL DISTRIBUTION WIDTH (BEAKER) (test 17.7 % 11.7-14.4 uihm=379) PLATELET COUNT (BEAKER) (test nxvp=322) 307 K/CU MM 150-450 MEAN PLATELET VOLUME (BEAKER) (test kols=200) 11.5 fL 9.4-12.3 NUCLEATED RED BLOOD CELLS (BEAKER) (test 0 /100 WBC 0-0 juvd=175) NEUTROPHILS RELATIVE PERCENT (BEAKER) (test 65 % vnba=409) LYMPHOCYTES RELATIVE PERCENT (BEAKER) (test 23 % bstx=263) MONOCYTES RELATIVE PERCENT (BEAKER) (test 8 % huou=381) EOSINOPHILS RELATIVE PERCENT (BEAKER) (test 3 % vnba=022) BASOPHILS RELATIVE PERCENT (BEAKER) (test 0 % tinp=259) NEUTROPHILS ABSOLUTE COUNT (BEAKER) (test 8.36 K/ L 1.56-6.13 lvep=796) LYMPHOCYTES ABSOLUTE COUNT (BEAKER) (test 3.01 K/ L 1.18-3.74 gvio=999) MONOCYTES ABSOLUTE COUNT (BEAKER) (test 1.02 K/ L 0.24-0.36 dgix=222) EOSINOPHILS ABSOLUTE COUNT (BEAKER) (test 0.43 K/ L 0.04-0.36 ofzr=114) BASOPHILS ABSOLUTE COUNT (BEAKER) (test 0.03 K/ L 0.01-0.08 xlfe=105) IMMATURE GRANULOCYTES-RELATIVE PERCENT (BEAKER) 0 % 0-1 (test ajyo=3507) POCT-GLUCOSE [id number] 10:28:00 Test Item Value Reference Range Comments POC-GLUCOSE METER (BEAKER) 276 mg/dL 70-110 TESTED AT [facility] [address] (test jhru=4489) [facility] [address] POCT-GLUCOSE [id number] 05:53:00 Test Item Value Reference Range Comments POC-GLUCOSE METER (BEAKER) 379 mg/dL 70-110 Notified JORDON STAPLETON/TESTED AT [facility] (test apmu=2556) [address] [facility] [place] [address] POCT-GLUCOSE [id number] 21:20:00 Test Item Value Reference Range Comments POC-GLUCOSE METER (BEAKER) 139 mg/dL 70-110 TESTED AT [place] [id number] [facility] (test caam=1577) [facility] [address] POCT-GLUCOSE [id number] 19:14:00 Test Item Value Reference Range Comments POC-GLUCOSE METER (BEAKER) 302 mg/dL 70-110 TESTED AT [address] (test gbem=5198) [facility] [address] CBC W/PLT COUNT & AUTO [id number] 15:49:00 Test Item Value Reference Range Comments WHITE BLOOD CELL COUNT (BEAKER) (test wrcc=869) 15.7 K/ L 3.5-10.5 RED BLOOD CELL COUNT (BEAKER) (test nwlk=603) 4.36 M/ L 3.93-5.22 HEMOGLOBIN (BEAKER) (test upcs=538) 11.8 GM/DL 11.2-15.7 HEMATOCRIT (BEAKER) (test sacy=429) 39.1 % 34.1-44.9 MEAN CORPUSCULAR VOLUME (BEAKER) (test lguv=667) 89.7 fL 79.4-94.8 MEAN CORPUSCULAR HEMOGLOBIN (BEAKER) (test 27.1 pg 25.6-32.2 ugut=124) MEAN CORPUSCULAR HEMOGLOBIN CONC (BEAKER) (test 30.2 GM/DL 32.2-35.5 soai=173) RED CELL DISTRIBUTION WIDTH (BEAKER) (test 18.0 % 11.7-14.4 nxms=816) PLATELET COUNT (BEAKER) (test ngcq=678) 378 K/CU MM 150-450 MEAN PLATELET VOLUME (BEAKER) (test dakt=947) 11.5 fL 9.4-12.3 NUCLEATED RED BLOOD CELLS (BEAKER) (test 0 /100 WBC 0-0 hjbr=722) (CELLAVISION MANUAL DIFF)[id number] 15:49:00 Test Item Value Reference Range Comments NEUTROPHILS - REL (CELLAVISION)(BEAKER) (test 86 % ullb=8335) LYMPHOCYTES - REL (CELLAVISION)(BEAKER) (test 9 % fwif=8787) MONOCYTES - REL (CELLAVISION)(BEAKER) (test 2 % snaq=7084) BANDS - REL (CELLAVISION)(BEAKER) (test 1 % 0-10 qbmv=2479) NEUTROPHILS - ABS (CELLAVISION)(BEAKER) (test 13.50 K/ul 1.56-6.13 yxud=4752) LYMPHOCYTES - ABS (CELLAVISION)(BEAKER) (test 1.41 K/ul 1.18-3.74 vgwr=5031) MONOCYTES - ABS (CELLAVISION)(BEAKER) (test 0.31 K/uL 0.24-0.36 skjd=4740) BANDS - ABS (CELLAVISION)(BEAKER) (test 0.16 K/uL 0.00-0.80 oays=3355) TOTAL COUNTED (BEAKER) (test ohol=1040) 100 GIANT PLATELETS (BEAKER) (test caky=717) Present VACUOLATED NEUTROPHILS (BEAKER) (test tiww=936) Present PLASMACYTOID LYMPHS(BEAKER) (test tunh=2593) Present ANISOCYTOSIS (BEAKER) (test fdly=565) 1+ few MACROCYTES (BEAKER) (test glda=540) 1+ few ARTIFACT (CELLAVISION)(BEAKER) (test ytob=9763) Present PLATELET CONCENTRATION (CELLAVISION)(BEAKER) Adequate (test bhtc=7673) Received comment: User comments: Slide comments:COMPREHENSIVE METABOLIC [id number] 13:36:00 Test Item Value Reference Range Comments TOTAL PROTEIN (BEAKER) 7.5 gm/dL 6.0-8.3 (test oegy=014) ALBUMIN (BEAKER) (test 3.4 g/dL 3.5-5.0 enxx=0031) ALKALINE PHOSPHATASE 110 U/L 40-150 (BEAKER) (test cjet=700) BILIRUBIN TOTAL (BEAKER) 0.2 mg/dL 0.2-1.2 (test ydfi=833) SODIUM (BEAKER) (test 138 meq/L 136-145 iibk=275) POTASSIUM (BEAKER) (test 4.6 meq/L 3.5-5.1 fttd=115) CHLORIDE (BEAKER) (test 94 meq/L 98-107 aqtg=853) CO2 (BEAKER) (test 35 meq/L 22-29 gimk=464) BLOOD UREA NITROGEN 14 mg/dL 7-21 (BEAKER) (test avac=629) CREATININE (BEAKER) (test 0.73 mg/dL 0.57-1.25 rlic=118) GLUCOSE RANDOM (BEAKER) 139 mg/dL 70-105 (test dbam=890) CALCIUM (BEAKER) (test 9.5 mg/dL 8.4-10.2 zvqw=893) AST (SGOT) (BEAKER) (test 20 U/L 5-34 bcwy=058) ALT (SGPT) (BEAKER) (test 36 U/L 6-55 pljb=907) EGFR (BEAKER) (test 117 mL/min/1.73 sq ESTIMATED GFR IS NOT xugo=9861) m ACCURATE CREATININE CLEARANCE IN PREDICTING GLOMERULAR FILTRATION RATE. ESTIMATED GFR IS NOT APPLICABLE FOR DIALYSIS PATIENTS. POCT-GLUCOSE [id number] 12:28:00 Test Item Value Reference Range Comments POC-GLUCOSE METER (BEAKER) 132 mg/dL 70-110 TESTED AT [address] (test vblo=4094) [facility] [address] POCT-GLUCOSE [id number] 07:46:00 Test Item Value Reference Range Comments POC-GLUCOSE METER (BEAKER) 405 mg/dL 70-110 Notified JORDON STAPLETON/TESTED AT [facility] (test rvtl=4059) [address] [place] [address] POCT-GLUCOSE [id number] 02:08:00 Test Item Value Reference Range Comments POC-GLUCOSE METER (BEAKER) 112 mg/dL 70-110 TESTED AT [address] (test wnso=1648) [facility] [address] POCT-GLUCOSE [id number] 21:19:00 Test Item Value Reference Range Comments POC-GLUCOSE METER (BEAKER) 307 mg/dL 70-110 Notified JORDON STAPLETON/TESTED AT [facility] (test dpmu=5076) [address] [place] [address] COMPREHENSIVE METABOLIC [id number] 21:15:00 Test Item Value Reference Range Comments TOTAL PROTEIN (BEAKER) 6.1 gm/dL 6.0-8.3 (test jvha=333) ALBUMIN (BEAKER) (test 2.9 g/dL 3.5-5.0 rwhh=2538) ALKALINE PHOSPHATASE 88 U/L 40-150 (BEAKER) (test ezjo=429) BILIRUBIN TOTAL (BEAKER) 0.1 mg/dL 0.2-1.2 (test ulsz=985) SODIUM (BEAKER) (test 137 meq/L 136-145 dtjz=067) POTASSIUM (BEAKER) (test 4.1 meq/L 3.5-5.1 ipqo=530) CHLORIDE (BEAKER) (test 97 meq/L 98-107 lwyt=850) CO2 (BEAKER) (test 30 meq/L 22-29 fyed=272) BLOOD UREA NITROGEN 13 mg/dL 7-21 (BEAKER) (test fxyg=976) CREATININE (BEAKER) (test 0.84 mg/dL 0.57-1.25 cfoq=349) GLUCOSE RANDOM (BEAKER) 357 mg/dL 70-105 (test wmta=027) CALCIUM (BEAKER) (test 8.4 mg/dL 8.4-10.2 dohf=066) AST (SGOT) (BEAKER) (test 17 U/L 5-34 neko=464) ALT (SGPT) (BEAKER) (test 35 U/L 6-55 xkkc=122) EGFR (BEAKER) (test 99 mL/min/1.73 sq m ESTIMATED GFR IS NOT yrcy=8423) ACCURATE CREATININE CLEARANCE IN PREDICTING GLOMERULAR FILTRATION RATE. ESTIMATED GFR IS NOT APPLICABLE FOR DIALYSIS PATIENTS. CBC W/PLT COUNT & AUTO [id number] 20:58:00 Test Item Value Reference Range Comments WHITE BLOOD CELL COUNT (BEAKER) (test qjvq=665) 17.1 K/ L 3.5-10.5 RED BLOOD CELL COUNT (BEAKER) (test qrqn=963) 3.64 M/ L 3.93-5.22 HEMOGLOBIN (BEAKER) (test wnid=438) 9.7 GM/DL 11.2-15.7 HEMATOCRIT (BEAKER) (test scwq=717) 33.0 % 34.1-44.9 MEAN CORPUSCULAR VOLUME (BEAKER) (test jvje=488) 90.7 fL 79.4-94.8 MEAN CORPUSCULAR HEMOGLOBIN (BEAKER) (test 26.6 pg 25.6-32.2 dmgy=012) MEAN CORPUSCULAR HEMOGLOBIN CONC (BEAKER) (test 29.4 GM/DL 32.2-35.5 geea=062) RED CELL DISTRIBUTION WIDTH (BEAKER) (test 18.0 % 11.7-14.4 slgc=856) PLATELET COUNT (BEAKER) (test wnzc=529) 326 K/CU MM 150-450 MEAN PLATELET VOLUME (BEAKER) (test niqv=593) 11.7 fL 9.4-12.3 NUCLEATED RED BLOOD CELLS (BEAKER) (test 0 /100 WBC 0-0 sdzp=430) NEUTROPHILS RELATIVE PERCENT (BEAKER) (test 89 % noat=522) LYMPHOCYTES RELATIVE PERCENT (BEAKER) (test 7 % gjnu=969) MONOCYTES RELATIVE PERCENT (BEAKER) (test 4 % hosn=805) EOSINOPHILS RELATIVE PERCENT (BEAKER) (test 0 % burh=341) BASOPHILS RELATIVE PERCENT (BEAKER) (test 0 % hdoy=310) NEUTROPHILS ABSOLUTE COUNT (BEAKER) (test 15.12 K/ L 1.56-6.13 runf=366) LYMPHOCYTES ABSOLUTE COUNT (BEAKER) (test 1.14 K/ L 1.18-3.74 dtmv=935) MONOCYTES ABSOLUTE COUNT (BEAKER) (test 0.67 K/ L 0.24-0.36 grqz=329) EOSINOPHILS ABSOLUTE COUNT (BEAKER) (test 0.02 K/ L 0.04-0.36 ygyl=014) BASOPHILS ABSOLUTE COUNT (BEAKER) (test 0.02 K/ L 0.01-0.08 khmd=898) IMMATURE GRANULOCYTES-RELATIVE PERCENT (BEAKER) 1 % 0-1 (test oazu=8773) POCT-GLUCOSE [id number] 17:49:00 Test Item Value Reference Range Comments POC-GLUCOSE METER (BEAKER) 272 mg/dL 70-110 TESTED AT [address] (test dauk=4123) [facility] [address] POCT-GLUCOSE [id number] 13:51:00 Test Item Value Reference Range Comments POC-GLUCOSE METER (BEAKER) 399 mg/dL 70-110 TESTED AT [address] (test cuqg=8478) [facility] [address] POCT-GLUCOSE [id number] 12:53:00 Test Item Value Reference Range Comments POC-GLUCOSE METER (BEAKER) 182 mg/dL 70-110 TESTED AT [address] (test exie=9401) [place] [id number] POCT-GLUCOSE [id number] 08:27:00 Test Item Value Reference Range Comments POC-GLUCOSE METER (BEAKER) 201 mg/dL 70-110 TESTED AT [address] (test grho=2842) [place] [address] BLOOD [id number] 23:01:00 Test Item Value Reference Range Comments CULTURE (BEAKER) (test cbdi=5451) No growth in 5 days POCT-GLUCOSE [id number] 21:41:00 Test Item Value Reference Range Comments POC-GLUCOSE METER (BEAKER) 327 mg/dL 70-110 Notified JORDON STAPLETON/TESTED AT [facility] (test hgzl=8236) [address] [place], [place] [id number] POCT-GLUCOSE [id number] 16:57:00 Test Item Value Reference Range Comments POC-GLUCOSE METER (BEAKER) 197 mg/dL 70-110 TESTED AT [address] (test ryjp=9405) [place] [address] POCT-GLUCOSE [id number] 13:01:00 Test Item Value Reference Range Comments POC-GLUCOSE METER (BEAKER) 311 mg/dL 70-110 Notified JORDON STAPLETON/TESTED AT [facility] (test jykt=9248) [address] [place], [place] [id number] POCT-GLUCOSE [id number] 12:11:00 Test Item Value Reference Range Comments POC-GLUCOSE METER (BEAKER) 54 mg/dL 70-110 Notified JORDON STAPLETON/TESTED AT [facility] (test vobi=8185) [address] [address] [place], [place] [id number] POCT-GLUCOSE [id number] 08:52:00 Test Item Value Reference Range Comments POC-GLUCOSE METER (BEAKER) 165 mg/dL 70-110 TESTED AT [address] (test iudm=9224) [place] [address] CBC W/PLT COUNT & AUTO [id number] 06:47:00 Test Item Value Reference Range Comments WHITE BLOOD CELL COUNT (BEAKER) (test tvbc=971) 20.1 K/ L 3.5-10.5 RED BLOOD CELL COUNT (BEAKER) (test wnul=982) 4.08 M/ L 3.93-5.22 HEMOGLOBIN (BEAKER) (test dqxi=808) 10.9 GM/DL 11.2-15.7 HEMATOCRIT (BEAKER) (test kttx=370) 36.2 % 34.1-44.9 MEAN CORPUSCULAR VOLUME (BEAKER) (test vpgk=717) 88.7 fL 79.4-94.8 MEAN CORPUSCULAR HEMOGLOBIN (BEAKER) (test 26.7 pg 25.6-32.2 ozlw=330) MEAN CORPUSCULAR HEMOGLOBIN CONC (BEAKER) (test 30.1 GM/DL 32.2-35.5 oktw=630) RED CELL DISTRIBUTION WIDTH (BEAKER) (test 17.9 % 11.7-14.4 ydpx=437) PLATELET COUNT (BEAKER) (test jrrf=452) 348 K/CU MM 150-450 MEAN PLATELET VOLUME (BEAKER) (test tpwr=078) 12.1 fL 9.4-12.3 NUCLEATED RED BLOOD CELLS (BEAKER) (test 0 /100 WBC 0-0 zaiw=770) (CELLAVISION MANUAL DIFF)2018-10-05 06:47:00 Test Item Value Reference Range Comments NEUTROPHILS - REL (CELLAVISION)(BEAKER) (test 77 % sydd=1742) LYMPHOCYTES - REL (CELLAVISION)(BEAKER) (test 15 % ykuv=3791) MONOCYTES - REL (CELLAVISION)(BEAKER) (test 5 % twwl=2325) EOSINOPHILS - REL (CELLAVISION)(BEAKER) (test 1 % qbmy=4503) BANDS - REL (CELLAVISION)(BEAKER) (test 1 % 0-10 ylea=2250) ATYPICAL LYMPHOCYTES - REL (CELLAVISION)(BEAKER) 1 % 0-0 (test bjts=6894) NEUTROPHILS - ABS (CELLAVISION)(BEAKER) (test 15.48 K/ul 1.56-6.13 zbou=8902) LYMPHOCYTES - ABS (CELLAVISION)(BEAKER) (test 3.02 K/ul 1.18-3.74 gpgo=1681) MONOCYTES - ABS (CELLAVISION)(BEAKER) (test 1.01 K/uL 0.24-0.36 icbb=8614) EOSINOPHILS - ABS (CELLAVISION)(BEAKER) (test 0.20 K/uL 0.04-0.36 cdjy=8860) BANDS - ABS (CELLAVISION)(BEAKER) (test 0.20 K/uL 0.00-0.80 feqt=3640) ATYPICAL LYMPHOCYTES - ABS (CELLAVISION)(BEAKER) 0.20 K/uL 0.00-0.00 (test sswo=2315) TOTAL COUNTED (BEAKER) (test obnj=8884) 100 WBC MORPHOLOGY (BEAKER) (test bvuu=105) Normal PLT MORPHOLOGY (BEAKER) (test rbye=790) Normal POLYCHROMATOPHILLIC RBCS(BEAKER) (test ewcp=958) 1+ few HYPOCHROMIA (BEAKER) (test tlsn=826) 1+ few ANISOCYTOSIS (BEAKER) (test tpkq=305) 1+ few MACROCYTES (BEAKER) (test niqy=674) 1+ few ARTIFACT (CELLAVISION)(BEAKER) (test ttnh=8024) Present PLATELET CONCENTRATION (CELLAVISION)(BEAKER) Adequate (test sipj=6072) Received comment: User comments: Slide comments:COMPREHENSIVE METABOLIC [id number] 04:58:00 Test Item Value Reference Range Comments TOTAL PROTEIN (BEAKER) 7.4 gm/dL 6.0-8.3 (test fbsy=078) ALBUMIN (BEAKER) (test 3.5 g/dL 3.5-5.0 gnyq=5537) ALKALINE PHOSPHATASE 119 U/L 40-150 (BEAKER) (test mbwb=494) BILIRUBIN TOTAL (BEAKER) 0.1 mg/dL 0.2-1.2 (test mdkb=144) SODIUM (BEAKER) (test 138 meq/L 136-145 whxs=309) POTASSIUM (BEAKER) (test 3.9 meq/L 3.5-5.1 jflk=590) CHLORIDE (BEAKER) (test 95 meq/L 98-107 rpjr=921) CO2 (BEAKER) (test 31 meq/L 22-29 akyf=725) BLOOD UREA NITROGEN 26 mg/dL 7-21 (BEAKER) (test xcai=097) CREATININE (BEAKER) (test 0.75 mg/dL 0.57-1.25 ckmv=059) GLUCOSE RANDOM (BEAKER) 98 mg/dL 70-105 (test jbjt=705) CALCIUM (BEAKER) (test 9.5 mg/dL 8.4-10.2 lsmg=296) AST (SGOT) (BEAKER) (test 25 U/L 5-34 nltm=615) ALT (SGPT) (BEAKER) (test 58 U/L 6-55 pwsd=868) EGFR (BEAKER) (test 113 mL/min/1.73 sq ESTIMATED GFR IS NOT nnrg=6604) m ACCURATE CREATININE CLEARANCE IN PREDICTING GLOMERULAR FILTRATION RATE. ESTIMATED GFR IS NOT APPLICABLE FOR DIALYSIS PATIENTS. POCT-GLUCOSE [id number] 23:13:00 Test Item Value Reference Range Comments POC-GLUCOSE METER (BEAKER) 210 mg/dL 70-110 TESTED AT [address] (test ibfo=9562) [place] [address] BLOOD [id number] 23:01:00 Test Item Value Reference Range Comments CULTURE (BEAKER) (test ndto=8139) No growth in 5 days POCT-GLUCOSE [id number] 18:25:00 Test Item Value Reference Range Comments POC-GLUCOSE METER (BEAKER) 186 mg/dL 70-110 TESTED AT [address] (test augp=2683) [place] [address] FUNGUS CULTURE + [id number] 14:17:00 Test Item Value Reference Range Comments CULTURE (BEAKER) (test 1+ Clau dubliniensis gfnn=3595) FUNGUS SMEAR (BEAKER) (test No fungi seen yaim=5506) POCT-GLUCOSE [id number] 12:24:00 Test Item Value Reference Range Comments POC-GLUCOSE METER (BEAKER) 183 mg/dL 70-110 TESTED AT [address] (test ftch=5652) [place] [address] POCT-GLUCOSE [id number] 09:13:00 Test Item Value Reference Range Comments POC-GLUCOSE METER (BEAKER) 81 mg/dL 70-110 TESTED AT [address] (test gbbe=8183) [place] [address] SPUTUM CULTURE + GRAM [id number] 09:05:00 Test Item Value Reference Range Comments CULTURE (BEAKER) (test PSEUDOMONAS 1+ Pseudomonas dlys=5729) AERUGINOSA aeruginosa Amikacin (test code=1) Susceptible 0-16 [...] , code=25) Resistant <0 or >4 CULTURE ([facility]) (test PSEUDOMONAS 1+ Pseudomonas aetn=7863) AERUGINOSA aeruginosa (MUCOID-PHENOTYPE) (Mucoid-phenotype) Amikacin (test code=1) [...] or >4 1+ Normal respiratory derick presentPOCT-GLUCOSE [id number] 06:29:00 Test Item Value Reference Range Comments POC-GLUCOSE METER (BEAKER) 291 mg/dL 70-110 TESTED AT [facility] [address] (test kami=9665) [facility] [address] COMPREHENSIVE METABOLIC [id number] 06:00:00 Test Item Value Reference Range Comments TOTAL PROTEIN (BEAKER) 6.2 gm/dL 6.0-8.3 (test iiwf=636) ALBUMIN (BEAKER) (test 3.0 g/dL 3.5-5.0 ysph=7978) ALKALINE PHOSPHATASE 93 U/L 40-150 (BEAKER) (test mklv=915) BILIRUBIN TOTAL (BEAKER) 0.1 mg/dL 0.2-1.2 (test qqye=451) SODIUM (BEAKER) (test 136 meq/L 136-145 dvuu=922) POTASSIUM (BEAKER) (test 4.2 meq/L 3.5-5.1 arhh=528) CHLORIDE (BEAKER) (test 96 meq/L 98-107 udjw=399) CO2 (BEAKER) (test 31 meq/L 22-29 whyx=629) BLOOD UREA NITROGEN 19 mg/dL 7-21 (BEAKER) (test rxol=826) CREATININE (BEAKER) (test 0.71 mg/dL 0.57-1.25 lzmv=461) GLUCOSE RANDOM (BEAKER) 297 mg/dL 70-105 (test otwz=130) CALCIUM (BEAKER) (test 8.6 mg/dL 8.4-10.2 fumz=551) AST (SGOT) (BEAKER) (test 30 U/L 5-34 iopr=623) ALT (SGPT) (BEAKER) (test 60 U/L 6-55 munp=884) EGFR (BEAKER) (test 121 mL/min/1.73 sq ESTIMATED GFR IS NOT qovd=8760) m ACCURATE CREATININE CLEARANCE IN PREDICTING GLOMERULAR FILTRATION RATE. ESTIMATED GFR IS NOT APPLICABLE FOR DIALYSIS PATIENTS. CBC W/PLT COUNT & AUTO [id number] 05:35:00 Test Item Value Reference Range Comments WHITE BLOOD CELL COUNT (BEAKER) (test chpy=717) 17.7 K/ L 3.5-10.5 RED BLOOD CELL COUNT (BEAKER) (test lobk=959) 3.46 M/ L 3.93-5.22 HEMOGLOBIN (BEAKER) (test omak=475) 9.4 GM/DL 11.2-15.7 HEMATOCRIT (BEAKER) (test mlii=844) 31.4 % 34.1-44.9 MEAN CORPUSCULAR VOLUME (BEAKER) (test kxax=147) 90.8 fL 79.4-94.8 MEAN CORPUSCULAR HEMOGLOBIN (BEAKER) (test 27.2 pg 25.6-32.2 ilbk=458) MEAN CORPUSCULAR HEMOGLOBIN CONC (BEAKER) (test 29.9 GM/DL 32.2-35.5 jeib=063) RED CELL DISTRIBUTION WIDTH (BEAKER) (test 17.4 % 11.7-14.4 kyoi=111) PLATELET COUNT (BEAKER) (test yngp=230) 281 K/CU MM 150-450 MEAN PLATELET VOLUME (BEAKER) (test jddv=806) 12.8 fL 9.4-12.3 NUCLEATED RED BLOOD CELLS (BEAKER) (test 0 /100 WBC 0-0 pqoq=748) NEUTROPHILS RELATIVE PERCENT (BEAKER) (test 85 % pnrz=118) LYMPHOCYTES RELATIVE PERCENT (BEAKER) (test 7 % ougq=410) MONOCYTES RELATIVE PERCENT (BEAKER) (test 7 % crbm=169) EOSINOPHILS RELATIVE PERCENT (BEAKER) (test 0 % jufc=715) BASOPHILS RELATIVE PERCENT (BEAKER) (test 0 % wiaj=308) NEUTROPHILS ABSOLUTE COUNT (BEAKER) (test 15.07 K/ L 1.56-6.13 magk=893) LYMPHOCYTES ABSOLUTE COUNT (BEAKER) (test 1.20 K/ L 1.18-3.74 yskw=767) MONOCYTES ABSOLUTE COUNT (BEAKER) (test 1.17 K/ L 0.24-0.36 kmsd=034) EOSINOPHILS ABSOLUTE COUNT (BEAKER) (test 0.05 K/ L 0.04-0.36 xomu=881) BASOPHILS ABSOLUTE COUNT (BEAKER) (test 0.03 K/ L 0.01-0.08 rbar=695) IMMATURE GRANULOCYTES-RELATIVE PERCENT (BEAKER) 1 % 0-1 (test amrt=6440) POCT-GLUCOSE [id number] 05:34:00 Test Item Value Reference Range Comments POC-GLUCOSE METER (BEAKER) 207 mg/dL 70-110 TESTED AT [facility] [address] [facility] (test mdwj=7583) [facility] [address] POCT-GLUCOSE [id number] 21:35:00 Test Item Value Reference Range Comments POC-GLUCOSE METER (BEAKER) 500 mg/dL 70-110 Notified JORDON STAPLETON/TESTED AT [facility] (test rxkj=9891) [address] [facility] [address] POCT-GLUCOSE [id number] 18:12:00 Test Item Value Reference Range Comments POC-GLUCOSE METER (BEAKER) 433 mg/dL 70-110 TESTED AT [address] (test lzpp=9491) [facility] [address] POCT-GLUCOSE [id number] 14:05:00 Test Item Value Reference Range Comments POC-GLUCOSE METER (BEAKER) 298 mg/dL 70-110 TESTED AT [address] (test rwba=7091) [facility] [address] POCT-GLUCOSE [id number] 08:34:00 Test Item Value Reference Range Comments POC-GLUCOSE METER (BEAKER) 171 mg/dL 70-110 TESTED AT [address] (test wexg=4485) [facility] [address] COMPREHENSIVE METABOLIC [id number] 05:54:00 Test Item Value Reference Range Comments TOTAL PROTEIN (BEAKER) 6.1 gm/dL 6.0-8.3 (test kphk=753) ALBUMIN (BEAKER) (test 2.9 g/dL 3.5-5.0 nrie=0144) ALKALINE PHOSPHATASE 92 U/L 40-150 (BEAKER) (test iezn=206) BILIRUBIN TOTAL (BEAKER) 0.1 mg/dL 0.2-1.2 (test gtxz=571) SODIUM (BEAKER) (test 135 meq/L 136-145 nfnm=987) POTASSIUM (BEAKER) (test 4.5 meq/L 3.5-5.1 wjdf=879) CHLORIDE (BEAKER) (test 92 meq/L 98-107 hgaz=738) CO2 (BEAKER) (test 36 meq/L 22-29 jzss=005) BLOOD UREA NITROGEN 16 mg/dL 7-21 (BEAKER) (test aguh=403) CREATININE (BEAKER) (test 0.77 mg/dL 0.57-1.25 evch=438) GLUCOSE RANDOM (BEAKER) 497 mg/dL 70-105 (test ybiw=952) CALCIUM (BEAKER) (test 9.0 mg/dL 8.4-10.2 svme=872) AST (SGOT) (BEAKER) (test 32 U/L 5-34 ozwh=238) ALT (SGPT) (BEAKER) (test 68 U/L 6-55 tpcv=032) EGFR (BEAKER) (test 110 mL/min/1.73 sq ESTIMATED GFR IS NOT sxxc=2278) m ACCURATE CREATININE CLEARANCE IN PREDICTING GLOMERULAR FILTRATION RATE. ESTIMATED GFR IS NOT APPLICABLE FOR DIALYSIS PATIENTS. [id number] 05:41:00 Test Item Value Reference Range Comments POTASSIUM (BEAKER) (test tctw=537) 4.5 meq/L 3.5-5.1 POCT-GLUCOSE [id number] 05:24:00 Test Item Value Reference Range Comments POC-GLUCOSE METER (BEAKER) 415 mg/dL 70-110 Notified JORDON STAPLETON/TESTED AT [facility] (test ridj=2964) [address] [facility] [address] CBC W/PLT COUNT & AUTO [id number] 05:20:00 Test Item Value Reference Range Comments WHITE BLOOD CELL COUNT (BEAKER) (test wknb=676) 12.9 K/ L 3.5-10.5 RED BLOOD CELL COUNT (BEAKER) (test atlh=196) 3.63 M/ L 3.93-5.22 HEMOGLOBIN (BEAKER) (test vtls=883) 9.7 GM/DL 11.2-15.7 HEMATOCRIT (BEAKER) (test lxgh=935) 32.2 % 34.1-44.9 MEAN CORPUSCULAR VOLUME (BEAKER) (test tkyi=223) 88.7 fL 79.4-94.8 MEAN CORPUSCULAR HEMOGLOBIN (BEAKER) (test 26.7 pg 25.6-32.2 iegt=914) MEAN CORPUSCULAR HEMOGLOBIN CONC (BEAKER) (test 30.1 GM/DL 32.2-35.5 jhhp=651) RED CELL DISTRIBUTION WIDTH (BEAKER) (test 17.1 % 11.7-14.4 mjbd=968) PLATELET COUNT (BEAKER) (test gkgz=254) 305 K/CU MM 150-450 MEAN PLATELET VOLUME (BEAKER) (test yxbz=471) 12.0 fL 9.4-12.3 NUCLEATED RED BLOOD CELLS (BEAKER) (test 0 /100 WBC 0-0 zbyi=087) NEUTROPHILS RELATIVE PERCENT (BEAKER) (test 77 % bfnr=504) LYMPHOCYTES RELATIVE PERCENT (BEAKER) (test 12 % gssk=714) MONOCYTES RELATIVE PERCENT (BEAKER) (test 10 % ofyb=293) EOSINOPHILS RELATIVE PERCENT (BEAKER) (test 1 % jhsh=339) BASOPHILS RELATIVE PERCENT (BEAKER) (test 0 % hzje=161) NEUTROPHILS ABSOLUTE COUNT (BEAKER) (test 9.87 K/ L 1.56-6.13 xpvl=574) LYMPHOCYTES ABSOLUTE COUNT (BEAKER) (test 1.50 K/ L 1.18-3.74 ucvh=858) MONOCYTES ABSOLUTE COUNT (BEAKER) (test 1.24 K/ L 0.24-0.36 atei=265) EOSINOPHILS ABSOLUTE COUNT (BEAKER) (test 0.12 K/ L 0.04-0.36 sftt=036) BASOPHILS ABSOLUTE COUNT (BEAKER) (test 0.02 K/ L 0.01-0.08 usdk=529) IMMATURE GRANULOCYTES-RELATIVE PERCENT (BEAKER) 1 % 0-1 (test fkda=9105) LACTIC ACID, VENOUS, WHOLE [id number] 05:18:00 Test Item Value Reference Range Comments LACTATE BLOOD VENOUS (2) (BEAKER) (test 2.1 mmol/L 0.5-2.2 tmvk=7435) [id number] 05:15:00 Test Item Value Reference Range Comments POTASSIUM (BEAKER) (test ysqe=497) 4.5 meq/L 3.5-5.1 POCT-GLUCOSE [id number] 02:55:00 Test Item Value Reference Range Comments POC-GLUCOSE METER (BEAKER) 464 mg/dL 70-110 Notified JORDON STAPLETON/TESTED AT [facility] (test qiyt=8075) [address] [place] [address] POCT-GLUCOSE [id number] 21:44:00 Test Item Value Reference Range Comments POC-GLUCOSE METER (BEAKER) 324 mg/dL 70-110 Notified JORDON STAPLETON/TESTED AT [facility] (test fbkd=7237) [address] [place] [address] POCT-GLUCOSE [id number] 18:33:00 Test Item Value Reference Range Comments POC-GLUCOSE METER (BEAKER) 272 mg/dL 70-110 [address] (test odqm=6169) [facility] [address] POCT-GLUCOSE [id number] 17:27:00 Test Item Value Reference Range Comments POC-GLUCOSE METER (BEAKER) 354 mg/dL 70-110 Notified JORDON STAPLETON/TESTED AT [facility] (test jtih=7985) [address] [place] [address] POCT-GLUCOSE [id number] 12:14:00 Test Item Value Reference Range Comments POC-GLUCOSE METER (BEAKER) 178 mg/dL 70-110 TESTED AT [address] (test jxje=9189) [facility] [address] POCT-GLUCOSE [id number] 08:20:00 Test Item Value Reference Range Comments POC-GLUCOSE METER (BEAKER) 211 mg/dL 70-110 TESTED AT [address] (test wuij=5511) [facility] [address] COMPREHENSIVE METABOLIC [id number] 06:42:00 Test Item Value Reference Range Comments TOTAL PROTEIN (BEAKER) 6.1 gm/dL 6.0-8.3 (test dewq=858) ALBUMIN (BEAKER) (test 2.9 g/dL 3.5-5.0 axiu=5583) ALKALINE PHOSPHATASE 88 U/L 40-150 (BEAKER) (test mecr=292) BILIRUBIN TOTAL (BEAKER) 0.1 mg/dL 0.2-1.2 (test ifdm=947) SODIUM (BEAKER) (test 137 meq/L 136-145 mdvt=545) POTASSIUM (BEAKER) (test 5.0 meq/L 3.5-5.1 caas=774) CHLORIDE (BEAKER) (test 95 meq/L 98-107 enfz=193) CO2 (BEAKER) (test 35 meq/L 22-29 lxmp=128) BLOOD UREA NITROGEN 23 mg/dL 7-21 (BEAKER) (test zgdg=719) CREATININE (BEAKER) (test 0.67 mg/dL 0.57-1.25 fhme=897) GLUCOSE RANDOM (BEAKER) 210 mg/dL 70-105 (test fyrc=518) CALCIUM (BEAKER) (test 8.8 mg/dL 8.4-10.2 taok=020) AST (SGOT) (BEAKER) (test 51 U/L 5-34 hmts=239) ALT (SGPT) (BEAKER) (test 74 U/L 6-55 sihy=736) EGFR (BEAKER) (test 129 mL/min/1.73 sq ESTIMATED GFR IS NOT bvar=2177) m ACCURATE CREATININE CLEARANCE IN PREDICTING GLOMERULAR FILTRATION RATE. ESTIMATED GFR IS NOT APPLICABLE FOR DIALYSIS PATIENTS. POCT-GLUCOSE [id number] 06:39:00 Test Item Value Reference Range Comments POC-GLUCOSE METER (BEAKER) 224 mg/dL 70-110 TESTED AT [facility] [address] [facility] (test cbbc=6010) [facility] [address] CBC W/PLT COUNT & AUTO [id number] 06:31:00 Test Item Value Reference Range Comments WHITE BLOOD CELL COUNT (BEAKER) (test lccv=478) 12.7 K/ L 3.5-10.5 RED BLOOD CELL COUNT (BEAKER) (test jiei=858) 3.58 M/ L 3.93-5.22 HEMOGLOBIN (BEAKER) (test zkgj=590) 9.7 GM/DL 11.2-15.7 HEMATOCRIT (BEAKER) (test dbps=528) 31.8 % 34.1-44.9 MEAN CORPUSCULAR VOLUME (BEAKER) (test pdlh=678) 88.8 fL 79.4-94.8 MEAN CORPUSCULAR HEMOGLOBIN (BEAKER) (test 27.1 pg 25.6-32.2 zvag=336) MEAN CORPUSCULAR HEMOGLOBIN CONC (BEAKER) (test 30.5 GM/DL 32.2-35.5 swaz=356) RED CELL DISTRIBUTION WIDTH (BEAKER) (test 16.4 % 11.7-14.4 dqrp=630) PLATELET COUNT (BEAKER) (test ofyb=086) 258 K/CU MM 150-450 MEAN PLATELET VOLUME (BEAKER) (test fyzj=822) 11.5 fL 9.4-12.3 NUCLEATED RED BLOOD CELLS (BEAKER) (test 0 /100 WBC 0-0 tlzg=501) NEUTROPHILS RELATIVE PERCENT (BEAKER) (test 72 % ugep=463) LYMPHOCYTES RELATIVE PERCENT (BEAKER) (test 15 % nrej=675) MONOCYTES RELATIVE PERCENT (BEAKER) (test 9 % vdhy=971) EOSINOPHILS RELATIVE PERCENT (BEAKER) (test 3 % ruum=213) BASOPHILS RELATIVE PERCENT (BEAKER) (test 0 % lpts=000) NEUTROPHILS ABSOLUTE COUNT (BEAKER) (test 9.17 K/ L 1.56-6.13 oxio=247) LYMPHOCYTES ABSOLUTE COUNT (BEAKER) (test 1.96 K/ L 1.18-3.74 qkku=222) MONOCYTES ABSOLUTE COUNT (BEAKER) (test 1.12 K/ L 0.24-0.36 yogj=378) EOSINOPHILS ABSOLUTE COUNT (BEAKER) (test 0.32 K/ L 0.04-0.36 xqvp=325) BASOPHILS ABSOLUTE COUNT (BEAKER) (test 0.02 K/ L 0.01-0.08 teqs=312) IMMATURE GRANULOCYTES-RELATIVE PERCENT (BEAKER) 1 % 0-1 (test gvwq=4536) POCT-GLUCOSE [id number] 02:22:00 Test Item Value Reference Range Comments POC-GLUCOSE METER (BEAKER) 354 mg/dL 70-110 TESTED AT [address] (test tkpm=3360) [facility] [address] POCT-GLUCOSE [id number] 22:38:00 Test Item Value Reference Range Comments POC-GLUCOSE METER (BEAKER) 224 mg/dL 70-110 TESTED AT [address] (test gpgn=3156) [facility] [address] POCT-GLUCOSE [id number] 21:24:00 Test Item Value Reference Range Comments POC-GLUCOSE METER (BEAKER) 349 mg/dL 70-110 TESTED AT [address] (test bmrx=2515) [facility] [address] POCT-GLUCOSE [id number] 18:45:00 Test Item Value Reference Range Comments POC-GLUCOSE METER (BEAKER) 264 mg/dL 70-110 TESTED AT [address] (test maud=2040) [facility] [address] POCT-GLUCOSE [id number] 15:48:00 Test Item Value Reference Range Comments POC-GLUCOSE METER (BEAKER) 191 mg/dL 70-110 TESTED AT [address] (test ixcv=8793) [facility] [address] POCT-GLUCOSE [id number] 15:17:00 Test Item Value Reference Range Comments POC-GLUCOSE METER (BEAKER) 111 mg/dL 70-110 TESTED AT [address] (test yqzs=0567) [facility] [address] POCT-GLUCOSE [id number] 11:13:00 Test Item Value Reference Range Comments POC-GLUCOSE METER (BEAKER) 297 mg/dL 70-110 TESTED AT [facility] [address] [facility] (test fjgn=0973) [facility] [address] POCT-GLUCOSE [id number] 08:10:00 Test Item Value Reference Range Comments POC-GLUCOSE METER (BEAKER) 221 mg/dL 70-110 TESTED AT [facility] [address] [facility] (test nfsy=0903) [facility] [address] [id number] 05:11:00 Test Item Value Reference Range Comments PHOSPHORUS (BEAKER) (test tvtk=680) 4.0 mg/dL 2.3-4.7 [id number] 05:11:00 Test Item Value Reference Range Comments MAGNESIUM (BEAKER) (test qgbo=578) 1.6 mg/dL 1.6-2.6 COMPREHENSIVE METABOLIC [id number] 05:11:00 Test Item Value Reference Range Comments TOTAL PROTEIN (BEAKER) 6.1 gm/dL 6.0-8.3 (test mdkc=854) ALBUMIN (BEAKER) (test 2.9 g/dL 3.5-5.0 enen=2974) ALKALINE PHOSPHATASE 87 U/L 40-150 (BEAKER) (test sagr=391) BILIRUBIN TOTAL (BEAKER) 0.1 mg/dL 0.2-1.2 (test leyi=506) SODIUM (BEAKER) (test 140 meq/L 136-145 vuoh=887) POTASSIUM (BEAKER) (test 5.5 meq/L 3.5-5.1 xkoe=811) CHLORIDE (BEAKER) (test 97 meq/L 98-107 luvb=260) CO2 (BEAKER) (test 35 meq/L 22-29 llfs=591) BLOOD UREA NITROGEN 27 mg/dL 7-21 (BEAKER) (test bxqx=488) CREATININE (BEAKER) (test 0.72 mg/dL 0.57-1.25 dwaq=889) GLUCOSE RANDOM (BEAKER) 219 mg/dL 70-105 (test yabu=709) CALCIUM (BEAKER) (test 8.5 mg/dL 8.4-10.2 lcfm=924) AST (SGOT) (BEAKER) (test 80 U/L 5-34 fycp=184) ALT (SGPT) (BEAKER) (test 75 U/L 6-55 mzhr=170) EGFR (BEAKER) (test 119 mL/min/1.73 sq ESTIMATED GFR IS NOT gzrm=4985) m ACCURATE CREATININE CLEARANCE IN PREDICTING GLOMERULAR FILTRATION RATE. ESTIMATED GFR IS NOT APPLICABLE FOR DIALYSIS PATIENTS. CBC W/PLT COUNT & AUTO [id number] 04:57:00 Test Item Value Reference Range Comments WHITE BLOOD CELL COUNT (BEAKER) (test yors=342) 13.8 K/ L 3.5-10.5 RED BLOOD CELL COUNT (BEAKER) (test zoin=357) 3.77 M/ L 3.93-5.22 HEMOGLOBIN (BEAKER) (test xeiu=272) 10.0 GM/DL 11.2-15.7 HEMATOCRIT (BEAKER) (test ruwt=776) 33.7 % 34.1-44.9 MEAN CORPUSCULAR VOLUME (BEAKER) (test jmmr=412) 89.4 fL 79.4-94.8 MEAN CORPUSCULAR HEMOGLOBIN (BEAKER) (test 26.5 pg 25.6-32.2 muno=308) MEAN CORPUSCULAR HEMOGLOBIN CONC (BEAKER) (test 29.7 GM/DL 32.2-35.5 ofox=341) RED CELL DISTRIBUTION WIDTH (BEAKER) (test 16.3 % 11.7-14.4 unbc=645) PLATELET COUNT (BEAKER) (test nbel=476) 309 K/CU MM 150-450 MEAN PLATELET VOLUME (BEAKER) (test xzfc=292) 11.6 fL 9.4-12.3 NUCLEATED RED BLOOD CELLS (BEAKER) (test 0 /100 WBC 0-0 dkee=013) NEUTROPHILS RELATIVE PERCENT (BEAKER) (test 72 % iimc=981) LYMPHOCYTES RELATIVE PERCENT (BEAKER) (test 15 % emax=617) MONOCYTES RELATIVE PERCENT (BEAKER) (test 8 % uaud=153) EOSINOPHILS RELATIVE PERCENT (BEAKER) (test 4 % xgrw=812) BASOPHILS RELATIVE PERCENT (BEAKER) (test 0 % wlgn=988) NEUTROPHILS ABSOLUTE COUNT (BEAKER) (test 9.92 K/ L 1.56-6.13 tsih=792) LYMPHOCYTES ABSOLUTE COUNT (BEAKER) (test 2.08 K/ L 1.18-3.74 tdqc=457) MONOCYTES ABSOLUTE COUNT (BEAKER) (test 1.15 K/ L 0.24-0.36 uhts=519) EOSINOPHILS ABSOLUTE COUNT (BEAKER) (test 0.49 K/ L 0.04-0.36 zeul=240) BASOPHILS ABSOLUTE COUNT (BEAKER) (test 0.01 K/ L 0.01-0.08 ciag=561) IMMATURE GRANULOCYTES-RELATIVE PERCENT (BEAKER) 1 % 0-1 (test xwjv=0234) [id number] 02:54:00 Test Item Value Reference Range Comments PROCALCITONIN (BEAKER) (test uijb=1566) 0.07 ng/mL <0.05 SEPSIS RISK (ng/mL)Low: 0.05-0.50Intermediate: 0.51-2.00High: & gt;=2.01POCT-GLUCOSE [id number] 01:59:00 Test Item Value Reference Range Comments POC-GLUCOSE METER (BEAKER) 265 mg/dL 70-110 TESTED AT [address] (test cevu=5242) [place] [id number] POCT-GLUCOSE [id number] 21:36:00 Test Item Value Reference Range Comments POC-GLUCOSE METER (BEAKER) 256 mg/dL 70-110 TESTED AT [address] (test fzyb=4801) [facility] [address] CT, BRAIN, WITHOUT [id number] 20:55:00FINAL REPORT CT, BRAIN, WITHOUT CONTRAST CLINICAL [...] IMPRESSION: No acute intracranial findings Signed: Kacie Armenta Verified Date/Time: 09/30/2018 20:55:31 Reading Location: [facility] C013V Neuro Reading Room COMPREHENSIVE METABOLIC [id number] 20:21:00 Test Item Value Reference Range Comments TOTAL PROTEIN (BEAKER) 6.6 gm/dL 6.0-8.3 (test rbic=033) ALBUMIN (BEAKER) (test 3.0 g/dL 3.5-5.0 wqek=6321) ALKALINE PHOSPHATASE 93 U/L 40-150 (BEAKER) (test tmus=294) BILIRUBIN TOTAL (BEAKER) 0.1 mg/dL 0.2-1.2 (test jxlc=957) SODIUM (BEAKER) (test 134 meq/L 136-145 slur=180) POTASSIUM (BEAKER) (test 5.9 meq/L 3.5-5.1 jzhx=269) CHLORIDE (BEAKER) (test 94 meq/L 98-107 jhst=469) CO2 (BEAKER) (test 29 meq/L 22-29 qyge=657) BLOOD UREA NITROGEN 29 mg/dL 7-21 (BEAKER) (test hqak=445) CREATININE (BEAKER) (test 0.97 mg/dL 0.57-1.25 uull=151) GLUCOSE RANDOM (BEAKER) 556 mg/dL 70-105 (test qkff=365) CALCIUM (BEAKER) (test 8.3 mg/dL 8.4-10.2 tvtb=570) AST (SGOT) (BEAKER) (test 71 U/L 5-34 nvrx=859) ALT (SGPT) (BEAKER) (test 71 U/L 6-55 vyps=401) EGFR (BEAKER) (test 84 mL/min/1.73 sq m ESTIMATED GFR IS NOT puvu=9481) ACCURATE CREATININE CLEARANCE IN PREDICTING GLOMERULAR FILTRATION RATE. ESTIMATED GFR IS NOT APPLICABLE FOR DIALYSIS PATIENTS. HCG, QUANTITATIVE, [id number] 18:38:00 Test Item Value Reference Range Comments GONADOTROPIN, CHORIONIC (HCG) QUANT (BEAKER) (test < mIU/mL 0-10 anoq=573) Non- Females: <10 mIU/mL Females: Gestation Age Reference Range(mIU/mL) 0.2-1 Week 5-50 1-2 Weeks 50-500 2-3 Weeks 100-5,000 3-4Weeks 500-10,000 4 -5 Weeks 1,000-50,000 5-6 Weeks 10,000-100,000 6-8 Weeks 15,000-200,000 2-3 Months 10,000-100,000U/S, RENAL, [id number] 17:21:00Reason for exam:->Hypertension, AKIShould this be [...] Verified Date/Time: 09/30/2018 17:21:03 Reading Location : [address] Ultrasound Reading Room RAD, CHEST, 1 VIEW, NON [id number] 17:18: 00Reason for exam:->assess port placementShould this [...] expected position. No pneumothorax. Signed: Flip Qureshi MDReport Verified Date/Time: 09/30/2018 17:18:52 Reading Location: [facility] Diagnostic Imaging Reading Room - [facility] F1 1120 POCT-GLUCOSE [id number] 17:15:00 Test Item Value Reference Range Comments POC-GLUCOSE METER (BEAKER) > mg/dL 70-110 OUTSIDE MEASURING RANGETESTED AT (test czyq=6714) [facility] [address] [facility] [address] U/S, ABDOMINAL, [id number] 15:35:00Abdomen limited area? Add comment if clarification [...] increased suggesting fatty infiltration. Signed: Sravanthi Flores MDReport Verified Date/Time: 09/30/2018 15:35:23 Reading Location: [facility] P006J Ultrasound Reading Room Electronically signed by: SRAVANTHI FLORES M.D. on 04/2018 03:35 PMCBC W/PLT COUNT & AUTO [id number] 15:30:00 Test Item Value Reference Range Comments WHITE BLOOD CELL COUNT (BEAKER) (test uoal=766) 18.4 K/ L 3.5-10.5 RED BLOOD CELL COUNT (BEAKER) (test bqbr=210) 3.82 M/ L 3.93-5.22 HEMOGLOBIN (BEAKER) (test zosr=730) 10.1 GM/DL 11.2-15.7 HEMATOCRIT (BEAKER) (test iomn=343) 33.9 % 34.1-44.9 MEAN CORPUSCULAR VOLUME (BEAKER) (test fcbr=562) 88.7 fL 79.4-94.8 MEAN CORPUSCULAR HEMOGLOBIN (BEAKER) (test 26.4 pg 25.6-32.2 anal=899) MEAN CORPUSCULAR HEMOGLOBIN CONC (BEAKER) (test 29.8 GM/DL 32.2-35.5 baip=176) RED CELL DISTRIBUTION WIDTH (BEAKER) (test 16.7 % 11.7-14.4 ljgw=979) PLATELET COUNT (BEAKER) (test dvnb=786) 337 K/CU MM 150-450 MEAN PLATELET VOLUME (BEAKER) (test bvpx=090) 12.0 fL 9.4-12.3 NUCLEATED RED BLOOD CELLS (BEAKER) (test 0 /100 WBC 0-0 bagn=689) NEUTROPHILS RELATIVE PERCENT (BEAKER) (test 91 % csmn=565) LYMPHOCYTES RELATIVE PERCENT (BEAKER) (test 4 % fqva=131) MONOCYTES RELATIVE PERCENT (BEAKER) (test 3 % qick=310) EOSINOPHILS RELATIVE PERCENT (BEAKER) (test 2 % mqgu=277) BASOPHILS RELATIVE PERCENT (BEAKER) (test 0 % iuqa=186) NEUTROPHILS ABSOLUTE COUNT (BEAKER) (test 16.67 K/ L 1.56-6.13 pgzs=953) LYMPHOCYTES ABSOLUTE COUNT (BEAKER) (test 0.73 K/ L 1.18-3.74 ackg=540) MONOCYTES ABSOLUTE COUNT (BEAKER) (test 0.47 K/ L 0.24-0.36 vrki=996) EOSINOPHILS ABSOLUTE COUNT (BEAKER) (test 0.30 K/ L 0.04-0.36 mubr=797) BASOPHILS ABSOLUTE COUNT (BEAKER) (test 0.02 K/ L 0.01-0.08 lxka=749) IMMATURE GRANULOCYTES-RELATIVE PERCENT (BEAKER) 1 % 0-1 (test zxwi=4171) COMPREHENSIVE METABOLIC [id number] 14:42:00 Test Item Value Reference Range Comments TOTAL PROTEIN (BEAKER) 6.8 gm/dL 6.0-8.3 Specimen slightly (test petl=116) hemolyzed ALBUMIN (BEAKER) (test 3.0 g/dL 3.5-5.0 Specimen slightly jpsy=0061) hemolyzed ALKALINE PHOSPHATASE 95 U/L 40-150 (BEAKER) (test jwmx=251) BILIRUBIN TOTAL (BEAKER) 0.2 mg/dL 0.2-1.2 Specimen slightly (test xuyo=489) hemolyzed SODIUM (BEAKER) (test 132 meq/L 136-145 nnct=337) POTASSIUM (BEAKER) (test 6.7 meq/L 3.5-5.1 Specimen slightly llgk=828) hemolyzed CHLORIDE (BEAKER) (test 94 meq/L 98-107 uhhy=523) CO2 (BEAKER) (test 30 meq/L 22-29 mpqf=103) BLOOD UREA NITROGEN 28 mg/dL 7-21 (BEAKER) (test kiij=008) CREATININE (BEAKER) (test 0.90 mg/dL 0.57-1.25 Specimen slightly ttka=095) hemolyzed GLUCOSE RANDOM (BEAKER) 519 mg/dL 70-105 (test qare=191) CALCIUM (BEAKER) (test 8.1 mg/dL 8.4-10.2 hgbm=683) AST (SGOT) (BEAKER) (test 148 U/L 5-34 Specimen slightly ijhk=448) hemolyzed ALT (SGPT) (BEAKER) (test 76 U/L 6-55 Specimen slightly mopx=759) hemolyzed EGFR (BEAKER) (test 92 mL/min/1.73 sq m ESTIMATED GFR IS NOT hkph=5836) ACCURATE CREATININE CLEARANCE IN PREDICTING GLOMERULAR FILTRATION RATE. ESTIMATED GFR IS NOT APPLICABLE FOR DIALYSIS PATIENTS. CBC W/PLT COUNT & AUTO [id number] 14:27:00 Test Item Value Reference Range Comments WHITE BLOOD CELL COUNT (BEAKER) (test eihj=990) 19.9 K/ L 3.5-10.5 RED BLOOD CELL COUNT (BEAKER) (test ffwk=184) 3.79 M/ L 3.93-5.22 HEMOGLOBIN (BEAKER) (test xasf=189) 10.2 GM/DL 11.2-15.7 HEMATOCRIT (BEAKER) (test kpir=663) 34.1 % 34.1-44.9 MEAN CORPUSCULAR VOLUME (BEAKER) (test kurz=071) 90.0 fL 79.4-94.8 MEAN CORPUSCULAR HEMOGLOBIN (BEAKER) (test 26.9 pg 25.6-32.2 pfzg=419) MEAN CORPUSCULAR HEMOGLOBIN CONC (BEAKER) (test 29.9 GM/DL 32.2-35.5 pime=466) RED CELL DISTRIBUTION WIDTH (BEAKER) (test 16.2 % 11.7-14.4 hihk=593) PLATELET COUNT (BEAKER) (test merf=328) 288 K/CU MM 150-450 MEAN PLATELET VOLUME (BEAKER) (test dtbe=813) 11.9 fL 9.4-12.3 NUCLEATED RED BLOOD CELLS (BEAKER) (test 0 /100 WBC 0-0 ztzg=282) NEUTROPHILS RELATIVE PERCENT (BEAKER) (test 91 % apua=744) LYMPHOCYTES RELATIVE PERCENT (BEAKER) (test 4 % lony=693) MONOCYTES RELATIVE PERCENT (BEAKER) (test 3 % gdvd=472) EOSINOPHILS RELATIVE PERCENT (BEAKER) (test 2 % crnh=233) BASOPHILS RELATIVE PERCENT (BEAKER) (test 0 % vqro=585) NEUTROPHILS ABSOLUTE COUNT (BEAKER) (test 18.05 K/ L 1.56-6.13 rqhi=863) LYMPHOCYTES ABSOLUTE COUNT (BEAKER) (test 0.69 K/ L 1.18-3.74 kivf=114) MONOCYTES ABSOLUTE COUNT (BEAKER) (test 0.54 K/ L 0.24-0.36 iuxr=532) EOSINOPHILS ABSOLUTE COUNT (BEAKER) (test 0.38 K/ L 0.04-0.36 qpdv=457) BASOPHILS ABSOLUTE COUNT (BEAKER) (test 0.02 K/ L 0.01-0.08 ghtg=133) IMMATURE GRANULOCYTES-RELATIVE PERCENT (BEAKER) 1 % 0-1 (test knjy=4013) POCT-GLUCOSE [id number] 13:56:00 Test Item Value Reference Range Comments POC-GLUCOSE METER (BEAKER) 406 mg/dL 70-110 TESTED AT [facility] [address] [facility] (test abtm=0648) [facility] [address] POCT-GLUCOSE [id number] 12:35:00 Test Item Value Reference Range Comments POC-GLUCOSE METER (BEAKER) 122 mg/dL 70-110 TESTED AT [address] (test zmky=5036) [facility] [address] POCT-GLUCOSE [id number] 12:04:00 Test Item Value Reference Range Comments POC-GLUCOSE METER (BEAKER) 67 mg/dL 70-110 Will Repeat Test/TESTED AT (test kgzi=5262) [address] [address] POCT-GLUCOSE [id number] 11:01:00 Test Item Value Reference Range Comments POC-GLUCOSE METER (BEAKER) 196 mg/dL 70-110 TESTED AT [address] (test usxs=4068) [facility] [address] POCT-GLUCOSE [id number] 10:15:00 Test Item Value Reference Range Comments POC-GLUCOSE METER (BEAKER) 210 mg/dL 70-110 TESTED AT [address] (test qyto=1059) [facility] [address] POCT-GLUCOSE [id number] 09:49:00 Test Item Value Reference Range Comments POC-GLUCOSE METER (BEAKER) 137 mg/dL 70-110 TESTED AT [address] (test udgr=9157) [facility] [address] POCT-GLUCOSE [id number] 08:42:00 Test Item Value Reference Range Comments POC-GLUCOSE METER (BEAKER) 22 mg/dL 70-110 Will Repeat Test/TESTED AT (test fehs=7113) [address] [address] POCT-GLUCOSE [id number] 06:34:00 Test Item Value Reference Range Comments POC-GLUCOSE METER (BEAKER) 123 mg/dL 70-110 TESTED AT [address] (test thdq=5010) [facility] [address] POCT-GLUCOSE [id number] 05:17:00 Test Item Value Reference Range Comments POC-GLUCOSE METER (BEAKER) 257 mg/dL 70-110 TESTED AT [address] (test gpag=6456) [facility] [address] POCT-GLUCOSE [id number] 04:33:00 Test Item Value Reference Range Comments POC-GLUCOSE METER (BEAKER) 197 mg/dL 70-110 TESTED AT [address] (test pelm=4754) [facility] [address] POCT-GLUCOSE [id number] 04:04:00 Test Item Value Reference Range Comments POC-GLUCOSE METER (BEAKER) 48 mg/dL 70-110 TESTED AT [address] (test htcv=5956) [facility] [address] POCT-GLUCOSE [id number] 03:44:00 Test Item Value Reference Range Comments POC-GLUCOSE METER (BEAKER) 62 mg/dL 70-110 TESTED AT [address] (test kwht=3096) [facility] [address] POCT-GLUCOSE [id number] 02:42:00 Test Item Value Reference Range Comments POC-GLUCOSE METER (BEAKER) 43 mg/dL 70-110 Notified JORDON STAPLETON/TESTED AT [facility] (test tyvp=8610) [address] [place] [address] POCT-GLUCOSE [id number] 02:10:00 Test Item Value Reference Range Comments POC-GLUCOSE METER (BEAKER) 73 mg/dL 70-110 TESTED AT [address] (test ztgy=9682) [facility] [address] POCT-GLUCOSE [id number] 00:59:00 Test Item Value Reference Range Comments POC-GLUCOSE METER (BEAKER) 222 mg/dL 70-110 TESTED AT [address] (test jwlr=5935) [facility] [address] POCT-GLUCOSE [id number] 23:57:00 Test Item Value Reference Range Comments POC-GLUCOSE METER (BEAKER) 314 mg/dL 70-110 TESTED AT [address] (test zmbj=3780) [facility] [address] POCT-GLUCOSE [id number] 22:42:00 Test Item Value Reference Range Comments POC-GLUCOSE METER (BEAKER) 197 mg/dL 70-110 TESTED AT [address] (test kqel=9311) [facility] [address] POCT-GLUCOSE [id number] 21:38:00 Test Item Value Reference Range Comments POC-GLUCOSE METER (BEAKER) 153 mg/dL 70-110 TESTED AT [address] (test jlfl=1566) [facility] [address] POCT-GLUCOSE [id number] 20:44:00 Test Item Value Reference Range Comments POC-GLUCOSE METER (BEAKER) 164 mg/dL 70-110 TESTED AT [address] (test oipm=6288) [facility] [address] POCT-GLUCOSE [id number] 19:15:00 Test Item Value Reference Range Comments POC-GLUCOSE METER (BEAKER) 186 mg/dL 70-110 TESTED AT [address] (test wwdu=0382) [facility] [address] POCT-GLUCOSE [id number] 18:06:00 Test Item Value Reference Range Comments POC-GLUCOSE METER (BEAKER) 215 mg/dL 70-110 TESTED AT [address] (test ckjf=7112) [facility] [address] POCT-GLUCOSE [id number] 17:31:00 Test Item Value Reference Range Comments POC-GLUCOSE METER (BEAKER) 116 mg/dL 70-110 TESTED AT [address] (test evob=8633) [place] [address] POCT-GLUCOSE [id number] 15:46:00 Test Item Value Reference Range Comments POC-GLUCOSE METER (BEAKER) 311 mg/dL 70-110 Notified JORDON STAPLETON/TESTED AT [facility] (test sqvj=3626) [address] [place] [address] POCT-GLUCOSE [id number] 14:37:00 Test Item Value Reference Range Comments POC-GLUCOSE METER (BEAKER) 306 mg/dL 70-110 Notified JORDON STAPLETON/TESTED AT [facility] (test ylrb=2006) [address] [place] [address] POCT-GLUCOSE [id number] 14:07:00 Test Item Value Reference Range Comments POC-GLUCOSE METER (BEAKER) 326 mg/dL 70-110 Patient on insulin Drip/TESTED (test evya=1730) AT [address] [address] POCT-GLUCOSE [id number] 12:52:00 Test Item Value Reference Range Comments POC-GLUCOSE METER (BEAKER) 360 mg/dL 70-110 Patient on insulin Drip/TESTED (test qsuj=1469) AT [address] [address] POCT-GLUCOSE [id number] 11:24:00 Test Item Value Reference Range Comments POC-GLUCOSE METER (BEAKER) 366 mg/dL 70-110 Notified JORDON STAPLETON/TESTED AT [facility] (test cxaf=3243) [address] [place], [place] [id number] RAD, CHEST, 1 VIEW, NON [id number] 10:40:00Reason for exam:->pulm cystic fibrosisShould this be [...] Everardo Castellanos Verified Date/Time: 10:40:52 Reading Location: [facility] Reading Room POCT-GLUCOSE [id number] 10:18:00 Test Item Value Reference Range Comments POC-GLUCOSE METER (BEAKER) 299 mg/dL 70-110 TESTED AT [address] (test yzyu=1623) [facility] [address] POCT-GLUCOSE [id number] 09:42:00 Test Item Value Reference Range Comments POC-GLUCOSE METER (BEAKER) 146 mg/dL 70-110 TESTED AT [address] (test vjaq=6827) [place] [address] POCT-GLUCOSE [id number] 09:01:00 Test Item Value Reference Range Comments POC-GLUCOSE METER (BEAKER) 97 mg/dL 70-110 TESTED AT [address] (test nphp=0247) [place] [address] POCT-GLUCOSE [id number] 07:56:00 Test Item Value Reference Range Comments POC-GLUCOSE METER (BEAKER) 144 mg/dL 70-110 TESTED AT [address] (test wuxq=0929) [place] [address] POCT-GLUCOSE [id number] 06:34:00 Test Item Value Reference Range Comments POC-GLUCOSE METER (BEAKER) 231 mg/dL 70-110 TESTED AT [address] (test cmaw=3521) [place] [address] POCT-GLUCOSE [id number] 05:35:00 Test Item Value Reference Range Comments POC-GLUCOSE METER (BEAKER) 330 mg/dL 70-110 Notified JORDON STAPLETON/TESTED AT [facility] (test mqvs=5514) [address] [place] [address] POCT-GLUCOSE [id number] 04:31:00 Test Item Value Reference Range Comments POC-GLUCOSE METER (BEAKER) 291 mg/dL 70-110 TESTED AT [address] (test uzbg=9854) [facility] [address] POCT-GLUCOSE [id number] 04:00:00 Test Item Value Reference Range Comments POC-GLUCOSE METER (BEAKER) 246 mg/dL 70-110 TESTED AT [address] (test ihgr=1187) [facility] [address] TSH/FREE T4 IF [id number] 03:14:00 Test Item Value Reference Range Comments THYROID STIMULATING HORMONE (BEAKER) (test 1.25 uIU/mL 0.35-4.94 ugkl=020) COMPREHENSIVE METABOLIC [id number] 02:54:00 Test Item Value Reference Range Comments TOTAL PROTEIN (BEAKER) 6.5 gm/dL 6.0-8.3 (test uuwm=921) ALBUMIN (BEAKER) (test 2.9 g/dL 3.5-5.0 kill=2067) ALKALINE PHOSPHATASE 99 U/L 40-150 (BEAKER) (test gduw=104) BILIRUBIN TOTAL (BEAKER) 0.1 mg/dL 0.2-1.2 (test mzlx=508) SODIUM (BEAKER) (test 136 meq/L 136-145 lmtr=761) POTASSIUM (BEAKER) (test 5.0 meq/L 3.5-5.1 dtjx=426) CHLORIDE (BEAKER) (test 97 meq/L 98-107 okse=552) CO2 (BEAKER) (test 29 meq/L 22-29 bcim=723) BLOOD UREA NITROGEN 32 mg/dL 7-21 (BEAKER) (test nkkj=279) CREATININE (BEAKER) (test 1.05 mg/dL 0.57-1.25 eueu=070) GLUCOSE RANDOM (BEAKER) 234 mg/dL 70-105 (test ylqe=270) CALCIUM (BEAKER) (test 8.6 mg/dL 8.4-10.2 ddpa=507) AST (SGOT) (BEAKER) (test 19 U/L 5-34 dvsz=284) ALT (SGPT) (BEAKER) (test 30 U/L 6-55 wpcu=841) EGFR (BEAKER) (test 77 mL/min/1.73 sq m ESTIMATED GFR IS NOT lvzv=3444) ACCURATE CREATININE CLEARANCE IN PREDICTING GLOMERULAR FILTRATION RATE. ESTIMATED GFR IS NOT APPLICABLE FOR DIALYSIS PATIENTS. CBC W/PLT COUNT & AUTO [id number] 02:37:00 Test Item Value Reference Range Comments WHITE BLOOD CELL COUNT (BEAKER) (test xsgg=285) 16.5 K/ L 3.5-10.5 RED BLOOD CELL COUNT (BEAKER) (test zoto=802) 3.82 M/ L 3.93-5.22 HEMOGLOBIN (BEAKER) (test pare=492) 10.2 GM/DL 11.2-15.7 HEMATOCRIT (BEAKER) (test vmap=970) 33.5 % 34.1-44.9 MEAN CORPUSCULAR VOLUME (BEAKER) (test fnmc=319) 87.7 fL 79.4-94.8 MEAN CORPUSCULAR HEMOGLOBIN (BEAKER) (test 26.7 pg 25.6-32.2 sjpd=602) MEAN CORPUSCULAR HEMOGLOBIN CONC (BEAKER) (test 30.4 GM/DL 32.2-35.5 lgxj=239) RED CELL DISTRIBUTION WIDTH (BEAKER) (test 15.5 % 11.7-14.4 moqb=571) PLATELET COUNT (BEAKER) (test ljhc=441) 321 K/CU MM 150-450 MEAN PLATELET VOLUME (BEAKER) (test zepk=754) 11.6 fL 9.4-12.3 NUCLEATED RED BLOOD CELLS (BEAKER) (test 0 /100 WBC 0-0 kpgo=513) NEUTROPHILS RELATIVE PERCENT (BEAKER) (test 84 % txeq=064) LYMPHOCYTES RELATIVE PERCENT (BEAKER) (test 6 % xjol=319) MONOCYTES RELATIVE PERCENT (BEAKER) (test 8 % uvym=096) EOSINOPHILS RELATIVE PERCENT (BEAKER) (test 0 % klle=019) BASOPHILS RELATIVE PERCENT (BEAKER) (test 0 % dwmc=047) NEUTROPHILS ABSOLUTE COUNT (BEAKER) (test 13.76 K/ L 1.56-6.13 elyp=060) LYMPHOCYTES ABSOLUTE COUNT (BEAKER) (test 1.00 K/ L 1.18-3.74 necs=021) MONOCYTES ABSOLUTE COUNT (BEAKER) (test 1.37 K/ L 0.24-0.36 eais=648) EOSINOPHILS ABSOLUTE COUNT (BEAKER) (test 0.05 K/ L 0.04-0.36 qfsp=027) BASOPHILS ABSOLUTE COUNT (BEAKER) (test 0.03 K/ L 0.01-0.08 nlit=879) IMMATURE GRANULOCYTES-RELATIVE PERCENT (BEAKER) 2 % 0-1 (test ctxt=6031) POCT-GLUCOSE [id number] 02:16:00 Test Item Value Reference Range Comments POC-GLUCOSE METER (BEAKER) 267 mg/dL 70-110 TESTED AT [address] (test hgxi=5712) [facility] [address] POCT-GLUCOSE [id number] 01:05:00 Test Item Value Reference Range Comments POC-GLUCOSE METER (BEAKER) 350 mg/dL 70-110 TESTED AT [address] (test mnru=0359) [facility] [address] POCT-GLUCOSE [id number] 00:18:00 Test Item Value Reference Range Comments POC-GLUCOSE METER (BEAKER) 463 mg/dL 70-110 TESTED AT [address] (test ayuu=5650) [facility] [address] BASIC METABOLIC [id number] 23:00:00 Test Item Value Reference Range Comments SODIUM (BEAKER) (test 132 meq/L 136-145 eqni=713) POTASSIUM (BEAKER) (test 6.3 meq/L 3.5-5.1 vwlw=656) CHLORIDE (BEAKER) (test 93 meq/L 98-107 quma=163) CO2 (BEAKER) (test 31 meq/L 22-29 jibp=037) BLOOD UREA NITROGEN 31 mg/dL 7-21 (BEAKER) (test yxij=783) CREATININE (BEAKER) (test 1.51 mg/dL 0.57-1.25 bbjn=610) GLUCOSE RANDOM (BEAKER) 611 mg/dL 70-105 (test kgdq=048) CALCIUM (BEAKER) (test 8.3 mg/dL 8.4-10.2 hfpz=210) EGFR (BEAKER) (test 50 mL/min/1.73 sq m ESTIMATED GFR IS NOT wfvc=8163) ACCURATE CREATININE CLEARANCE IN PREDICTING GLOMERULAR FILTRATION RATE. ESTIMATED GFR IS NOT APPLICABLE FOR DIALYSIS PATIENTS. POCT-GLUCOSE [id number] 22:53:00 Test Item Value Reference Range Comments POC-GLUCOSE METER (BEAKER) > mg/dL 70-110 OUTSIDE MEASURING RANGENotified RN (test ebdo=2937) MD/TESTED AT [address] [address] POCT-GLUCOSE [id number] 20:20:00 Test Item Value Reference Range Comments POC-GLUCOSE METER (BEAKER) > mg/dL 70-110 OUTSIDE MEASURING RANGENotified RN (test ftfk=3491) MD/TESTED AT [address] [address] POCT-GLUCOSE [id number] 18:29:00 Test Item Value Reference Range Comments POC-GLUCOSE METER (BEAKER) 378 mg/dL 70-110 TESTED AT [address] (test wzyy=8373) [facility] [address] POCT-GLUCOSE [id number] 16:28:00 Test Item Value Reference Range Comments POC-GLUCOSE METER (BEAKER) 376 mg/dL 70-110 TESTED AT [address] (test xkvo=5839) [facility] [address] POCT-GLUCOSE [id number] 16:06:00 Test Item Value Reference Range Comments POC-GLUCOSE METER (BEAKER) 393 mg/dL 70-110 TESTED AT [address] (test uflj=5008) [facility] [address] POCT-GLUCOSE [id number] 15:50:00 Test Item Value Reference Range Comments POC-GLUCOSE METER (BEAKER) 355 mg/dL 70-110 Notified RN or MD Patient (test wugf=5095) refused repeat test/TESTED AT [address] [address] POCT-GLUCOSE [id number] 15:21:00 Test Item Value Reference Range Comments POC-GLUCOSE METER (BEAKER) 265 mg/dL 70-110 TESTED AT [address] (test kpzb=4084) [facility] [address] POCT-GLUCOSE [id number] 14:41:00 Test Item Value Reference Range Comments POC-GLUCOSE METER (BEAKER) 225 mg/dL 70-110 TESTED AT [address] (test zcaa=1700) [facility] [address] ANG, VENOCAVAGRAM, [id number] 14:17:00Reason for exam:->Concern for SVC syndrome with [...] subclavian vein as described. Signed: [facility]in [facility] Ver[facility] Date/Time: 09/28/2018 14:17:02 Reading Location: [facility] B1 P048 Angio Body Reading Room POCT-GLUCOSE [id number] 14:15:00 Test Item Value Reference Range Comments POC-GLUCOSE METER (BEAKER) 230 mg/dL 70-110 TESTED AT [address] (test jfsz=5295) [facility] [address] POCT-GLUCOSE [id number] 13:37:00 Test Item Value Reference Range Comments POC-GLUCOSE METER (BEAKER) 238 mg/dL 70-110 TESTED AT [address] (test mglo=5300) [facility] [address] POCT-GLUCOSE [id number] 13:37:00 Test Item Value Reference Range Comments POC-GLUCOSE METER (BEAKER) 294 mg/dL 70-110 TESTED AT [address] (test coio=3032) [facility] [address] POCT-GLUCOSE [id number] 12:55:00 Test Item Value Reference Range Comments POC-GLUCOSE METER (BEAKER) 71 mg/dL 70-110 TESTED AT [address] (test ukvv=3832) [facility] [address] POCT-GLUCOSE [id number] 12:01:00 Test Item Value Reference Range Comments POC-GLUCOSE METER (BEAKER) 148 mg/dL 70-110 TESTED AT [address] (test jshp=8658) [facility] [address] CBC W/PLT COUNT & AUTO [id number] 11:50:00 Test Item Value Reference Range Comments WHITE BLOOD CELL COUNT (BEAKER) (test cqgh=074) 15.3 K/ L 3.5-10.5 RED BLOOD CELL COUNT (BEAKER) (test yknd=201) 3.90 M/ L 3.93-5.22 HEMOGLOBIN (BEAKER) (test rzzz=179) 10.4 GM/DL 11.2-15.7 HEMATOCRIT (BEAKER) (test agvq=730) 34.8 % 34.1-44.9 MEAN CORPUSCULAR VOLUME (BEAKER) (test kxig=358) 89.2 fL 79.4-94.8 MEAN CORPUSCULAR HEMOGLOBIN (BEAKER) (test 26.7 pg 25.6-32.2 bmsa=076) MEAN CORPUSCULAR HEMOGLOBIN CONC (BEAKER) (test 29.9 GM/DL 32.2-35.5 evnd=930) RED CELL DISTRIBUTION WIDTH (BEAKER) (test 15.8 % 11.7-14.4 guja=772) PLATELET COUNT (BEAKER) (test anlp=559) 303 K/CU MM 150-450 MEAN PLATELET VOLUME (BEAKER) (test ffpl=110) 11.4 fL 9.4-12.3 NUCLEATED RED BLOOD CELLS (BEAKER) (test 0 /100 WBC 0-0 zssd=500) (CELLAVISION MANUAL DIFF)2018-09-28 11:50:00 Test Item Value Reference Range Comments NEUTROPHILS - REL (CELLAVISION)(BEAKER) (test 79 % oapw=9991) LYMPHOCYTES - REL (CELLAVISION)(BEAKER) (test 11 % rhrp=7274) MONOCYTES - REL (CELLAVISION)(BEAKER) (test 10 % qzbc=1315) NEUTROPHILS - ABS (CELLAVISION)(BEAKER) (test 12.09 K/ul 1.56-6.13 ceof=9380) LYMPHOCYTES - ABS (CELLAVISION)(BEAKER) (test 1.68 K/ul 1.18-3.74 bqqi=0513) MONOCYTES - ABS (CELLAVISION)(BEAKER) (test 1.53 K/uL 0.24-0.36 bhyj=3557) TOTAL COUNTED (BEAKER) (test mvur=2397) 100 WBC MORPHOLOGY (BEAKER) (test lpsj=199) Normal PLT MORPHOLOGY (BEAKER) (test kcbu=296) Normal POLYCHROMATOPHILLIC RBCS(BEAKER) (test umbu=244) 2+ moderate ANISOCYTOSIS (BEAKER) (test ucje=833) 2+ moderate TARGET CELLS (BEAKER) (test vzas=391) 1+ few ARTIFACT (CELLAVISION)(BEAKER) (test gowq=8903) Present PLATELET CONCENTRATION (CELLAVISION)(BEAKER) Adequate (test emav=5521) Received comment: User comments: Slide comments:POCT-GLUCOSE [id number] 11: 46:00 Test Item Value Reference Range Comments POC-GLUCOSE METER (BEAKER) 27 mg/dL 70-110 TESTED AT [address] (test wsez=8034) [facility] [address] POCT-GLUCOSE [id number] 11:46:00 Test Item Value Reference Range Comments POC-GLUCOSE METER (BEAKER) 106 mg/dL 70-110 TESTED AT [address] (test srkj=3814) [place] [id number] POCT-GLUCOSE [id number] 11:46:00 Test Item Value Reference Range Comments POC-GLUCOSE METER (BEAKER) 20 mg/dL 70-110 TESTED AT [address] (test kqar=7460) [place] [id number] POCT-GLUCOSE [id number] 11:46:00 Test Item Value Reference Range Comments POC-GLUCOSE METER (BEAKER) 63 mg/dL 70-110 TESTED AT [address] (test ylau=1818) [place] [address] CF RESPIRATORY [id number] 11:03:00 Test Item Value Reference Range Comments CULTURE (BEAKER) (test PSEUDOMONAS 4+ Pseudomonas iizp=2735) AERUGINOSA aeruginosa (MUCOID-PHENOTYPE) (Mucoid-phenotype) Amikacin (test code=1) [...] or >4 CULTURE (BEAKER) (test 4+ Pseudomonas pyxv=5116) aeruginosa 1+ Normal respiratory derick presentPOCT-GLUCOSE [id number] 09:33:00 Test Item Value Reference Range Comments POC-GLUCOSE METER (BEAKER) 29 mg/dL 70-110 TESTED AT [facility] [address] [facility] (test mtwk=8433) [facility] [address] POCT-GLUCOSE [id number] 08:48:00 Test Item Value Reference Range Comments POC-GLUCOSE METER (BEAKER) 134 mg/dL 70-110 TESTED AT [facility] [address] [facility] (test fbny=4888) [facility] [address] COMPREHENSIVE METABOLIC [id number] 06:31:00 Test Item Value Reference Range Comments TOTAL PROTEIN (BEAKER) 6.4 gm/dL 6.0-8.3 (test ulih=602) ALBUMIN (BEAKER) (test 2.8 g/dL 3.5-5.0 ypfu=9910) ALKALINE PHOSPHATASE 99 U/L 40-150 (BEAKER) (test jdti=938) BILIRUBIN TOTAL (BEAKER) 0.1 mg/dL 0.2-1.2 (test jbif=009) SODIUM (BEAKER) (test 139 meq/L 136-145 fagl=924) POTASSIUM (BEAKER) (test 4.3 meq/L 3.5-5.1 ennk=308) CHLORIDE (BEAKER) (test 103 meq/L 98-107 cydu=569) CO2 (BEAKER) (test 27 meq/L 22-29 vdur=321) BLOOD UREA NITROGEN 25 mg/dL 7-21 (BEAKER) (test aixt=605) CREATININE (BEAKER) (test 0.71 mg/dL 0.57-1.25 zrrj=692) GLUCOSE RANDOM (BEAKER) 67 mg/dL 70-105 (test vcef=054) CALCIUM (BEAKER) (test 8.6 mg/dL 8.4-10.2 nkqn=257) AST (SGOT) (BEAKER) (test 25 U/L 5-34 aery=653) ALT (SGPT) (BEAKER) (test 29 U/L 6-55 cayv=280) EGFR (BEAKER) (test 121 mL/min/1.73 sq ESTIMATED GFR IS NOT dakf=9565) m ACCURATE CREATININE CLEARANCE IN PREDICTING GLOMERULAR FILTRATION RATE. ESTIMATED GFR IS NOT APPLICABLE FOR DIALYSIS PATIENTS. PT/[id number] 06:28:00 Test Item Value Reference Range Comments PROTIME (BEAKER) (test emye=353) 13.2 seconds 11.7-14.7 INR (BEAKER) (test fxca=928) 1.0 <=5.9 PARTIAL THROMBOPLASTIN TIME (BEAKER) (test 23.8 seconds 22.5-36.0 vbwx=991) RECOMMENDED COUMADIN/WARFARIN INR THERAPY RANGESSTANDARD DOSE: 2.0 - 3.0 Includes: PROPHYLAXIS forvenous thrombosis, systemic embolization; TREATMENT for venous thrombosis and/or pulmonary embolus.HIGH RISK: Target INR is 2.5-3.5 for patients with mechanical heart valves.POCT-GLUCOSE [id number] 06:01:00 Test Item Value Reference Range Comments POC-GLUCOSE METER (BEAKER) 102 mg/dL 70-110 TESTED AT [address] (test czsn=8280) [facility] [address] POCT-GLUCOSE [id number] 06:00:00 Test Item Value Reference Range Comments POC-GLUCOSE METER (BEAKER) 65 mg/dL 70-110 TESTED AT [address] (test ifuc=2054) [facility] [address] POCT-GLUCOSE [id number] 02:18:00 Test Item Value Reference Range Comments POC-GLUCOSE METER (BEAKER) 185 mg/dL 70-110 TESTED AT [address] (test tdhh=1646) [facility] [address] POCT-GLUCOSE [id number] 00:05:00 Test Item Value Reference Range Comments POC-GLUCOSE METER (BEAKER) 254 mg/dL 70-110 TESTED AT [address] (test dsmq=9406) [facility] [address] POCT-GLUCOSE [id number] 20:51:00 Test Item Value Reference Range Comments POC-GLUCOSE METER (BEAKER) 157 mg/dL 70-110 TESTED AT [address] (test mxed=8999) [facility] [address] POCT-GLUCOSE [id number] 17:44:00 Test Item Value Reference Range Comments POC-GLUCOSE METER (BEAKER) 192 mg/dL 70-110 TESTED AT [address] (test uewt=9145) [facility] [address] POCT-GLUCOSE [id number] 12:38:00 Test Item Value Reference Range Comments POC-GLUCOSE METER (BEAKER) 338 mg/dL 70-110 Notified JORDON STAPLETON/TESTED AT [facility] (test cosf=6091) [address] [place] [address] [employer]B CULTURE + [id number] 10:58:00 Test Item Value Reference Range Comments CULTURE (BEAKER) (test No acid-fast bacilli isolated hgwj=0262) in 42 days AFB SMEAR (BEAKER) (test No acid fast bacilli seen awea=673) COMPREHENSIVE METABOLIC [id number] 10:31:00 Test Item Value Reference Range Comments TOTAL PROTEIN (BEAKER) 6.5 gm/dL 6.0-8.3 (test qjlv=486) ALBUMIN (BEAKER) (test 2.8 g/dL 3.5-5.0 frwg=7087) ALKALINE PHOSPHATASE 109 U/L 40-150 (BEAKER) (test aspo=516) BILIRUBIN TOTAL (BEAKER) 0.1 mg/dL 0.2-1.2 (test qbcm=927) SODIUM (BEAKER) (test 137 meq/L 136-145 ywfe=172) POTASSIUM (BEAKER) (test 4.6 meq/L 3.5-5.1 kxxx=902) CHLORIDE (BEAKER) (test 97 meq/L 98-107 royv=191) CO2 (BEAKER) (test 29 meq/L 22-29 qmhs=405) BLOOD UREA NITROGEN 26 mg/dL 7-21 (BEAKER) (test sjqk=575) CREATININE (BEAKER) (test 0.88 mg/dL 0.57-1.25 kqvq=611) GLUCOSE RANDOM (BEAKER) 298 mg/dL 70-105 (test hjze=429) CALCIUM (BEAKER) (test 8.5 mg/dL 8.4-10.2 mtvk=716) AST (SGOT) (BEAKER) (test 26 U/L 5-34 lrzk=428) ALT (SGPT) (BEAKER) (test 30 U/L 6-55 lgbi=905) EGFR (BEAKER) (test 94 mL/min/1.73 sq m ESTIMATED GFR IS NOT cvru=4808) ACCURATE CREATININE CLEARANCE IN PREDICTING GLOMERULAR FILTRATION RATE. ESTIMATED GFR IS NOT APPLICABLE FOR DIALYSIS PATIENTS. CBC W/PLT COUNT & AUTO [id number] 10:30:00 Test Item Value Reference Range Comments WHITE BLOOD CELL COUNT (BEAKER) (test ihqx=161) 17.2 K/ L 3.5-10.5 RED BLOOD CELL COUNT (BEAKER) (test rior=392) 3.93 M/ L 3.93-5.22 HEMOGLOBIN (BEAKER) (test jqwq=131) 10.4 GM/DL 11.2-15.7 HEMATOCRIT (BEAKER) (test dnxy=435) 34.7 % 34.1-44.9 MEAN CORPUSCULAR VOLUME (BEAKER) (test haei=864) 88.3 fL 79.4-94.8 MEAN CORPUSCULAR HEMOGLOBIN (BEAKER) (test 26.5 pg 25.6-32.2 kxzc=225) MEAN CORPUSCULAR HEMOGLOBIN CONC (BEAKER) (test 30.0 GM/DL 32.2-35.5 osyh=836) RED CELL DISTRIBUTION WIDTH (BEAKER) (test 15.4 % 11.7-14.4 rklw=362) PLATELET COUNT (BEAKER) (test qmmj=172) 343 K/CU MM 150-450 MEAN PLATELET VOLUME (BEAKER) (test ssnb=193) 11.2 fL 9.4-12.3 NUCLEATED RED BLOOD CELLS (BEAKER) (test 0 /100 WBC 0-0 kdys=199) NEUTROPHILS RELATIVE PERCENT (BEAKER) (test 87 % gozx=030) LYMPHOCYTES RELATIVE PERCENT (BEAKER) (test 6 % wdcq=140) MONOCYTES RELATIVE PERCENT (BEAKER) (test 5 % ttdt=607) EOSINOPHILS RELATIVE PERCENT (BEAKER) (test 0 % mawn=382) BASOPHILS RELATIVE PERCENT (BEAKER) (test 0 % oqit=058) NEUTROPHILS ABSOLUTE COUNT (BEAKER) (test 14.93 K/ L 1.56-6.13 jxhj=507) LYMPHOCYTES ABSOLUTE COUNT (BEAKER) (test 0.96 K/ L 1.18-3.74 mjha=219) MONOCYTES ABSOLUTE COUNT (BEAKER) (test 0.92 K/ L 0.24-0.36 nzgj=499) EOSINOPHILS ABSOLUTE COUNT (BEAKER) (test 0.00 K/ L 0.04-0.36 rpaz=286) BASOPHILS ABSOLUTE COUNT (BEAKER) (test 0.03 K/ L 0.01-0.08 tpii=677) IMMATURE GRANULOCYTES-RELATIVE PERCENT (BEAKER) 2 % 0-1 (test hxsl=2172) POCT-GLUCOSE [id number] 08:59:00 Test Item Value Reference Range Comments POC-GLUCOSE METER (BEAKER) 108 mg/dL 70-110 TESTED AT [address] (test yone=4320) [place] [address] POCT-GLUCOSE [id number] 07:11:00 Test Item Value Reference Range Comments POC-GLUCOSE METER (BEAKER) 170 mg/dL 70-110 TESTED AT [address] (test srsc=7388) [place] [address] [id number] 06:34:00 Test Item Value Reference Range Comments BLOOD UREA NITROGEN (BEAKER) (test hxdh=585) 24 mg/dL 7-21 [id number] 06:34:00 Test Item Value Reference Range Comments CREATININE (BEAKER) (test 0.87 mg/dL 0.57-1.25 fqhc=389) EGFR (BEAKER) (test 95 mL/min/1.73 sq m ESTIMATED GFR IS NOT sarb=5685) ACCURATE CREATININE CLEARANCE IN PREDICTING GLOMERULAR FILTRATION RATE. ESTIMATED GFR IS NOT APPLICABLE FOR DIALYSIS PATIENTS. POCT-GLUCOSE [id number] 06:05:00 Test Item Value Reference Range Comments POC-GLUCOSE METER (BEAKER) 171 mg/dL 70-110 TESTED AT [address] (test eslm=8181) [place] [address] SCREEN, [id number] 02:57:00 Test Item Value Reference Range Comments TEST URINE (BEAKER) (test trwp=793) Negative POCT-GLUCOSE [id number] 00:14:00 Test Item Value Reference Range Comments POC-GLUCOSE METER (BEAKER) 262 mg/dL 70-110 TESTED AT [address] (test amqs=4347) [place] [address] POCT-GLUCOSE [id number] 21:03:00 Test Item Value Reference Range Comments POC-GLUCOSE METER (BEAKER) 287 mg/dL 70-110 TESTED AT [address] (test lzhe=2991) [place] [address] RESPIRATORY PANEL [id number] 19:49:00 Test Item Value Reference Range Comments HUMAN METAPNEUMOVIRUS (BEAKER) (test Not detected Not detected, Equivocal cyjv=1167) RHINOVIRUS (BEAKER) (test jrla=7490) Not detected Not detected, Equivocal INFLUENZA A (BEAKER) (test veta=3748) Not detected Not detected, Equivocal INFLUENZA A (NO SUBTYPE) (test Not detected, Equivocal snhw=3829) INFLUENZA A SUBTYPE H1 (BEAKER) (test Not detected, Equivocal mbtb=3545) INFLUENZA A SUBTYPE H3 (BEAKER) (test Not detected, Equivocal vnrv=8341) INFLUENZA A SUBTYPE H1-2009 (BEAKER) Not detected, Equivocal (test ovhp=5508) INFLUENZA B (BEAKER) (test qipj=4190) Not detected Not detected, Equivocal RESPIRATORY SYNCYTIAL VIRUS (BEAKER) Not detected Not detected, Equivocal (test fsjg=2188) PARAINFLUENZA VIRUS 1 (BEAKER) (test Not detected Not detected, Equivocal erjd=0721) PARAINFLUENZA VIRUS 2 (BEAKER) (test Not detected Not detected, Equivocal psfi=0351) PARAINFLUENZA VIRUS 3 (BEAKER) (test Not detected Not detected, Equivocal nurw=5163) PARAINFLUENZA VIRUS 4 (BEAKER) (test Not detected Not detected, Equivocal jgzp=9589) ADENOVIRUS (BEAKER) (test sxlg=3307) Not detected Not detected, Equivocal CORONAVIRUS 229E (BEAKER) (test Not detected Not detected, Equivocal tdxy=9306) CORONAVIRUS HKU1 (BEAKER) (test Not detected Not detected, Equivocal lafg=3220) CORONAVIRUS NL63 (BEAKER) (test Not detected Not detected, Equivocal wgnw=4674) CORONAVIRUS OC43 (BEAKER) (test Not detected Not detected, Equivocal vdcx=3544) BORDETELLA PERTUSSIS (BEAKER) (test Not detected Not detected, Equivocal wxub=5881) CHLAMYDOPHILA PNEUMONIAE (BEAKER) (test Not detected Not detected, Equivocal iguq=9319) MYCOPLASMA PNEUMONIAE (BEAKER) (test Not detected Not detected, Equivocal mkii=5066) Other viruses and bacteria not targeted by this PCR panel cannot be excluded; therefore clinical correlation and follow up of serology, culture results, and other molecular studies is required. The results are not intended to be used as the sole means for clinical diagnosis or patient management decisions. This sample was tested at the [facility] using the AscenergyArray Respiratory Panel. It is FDA cleared and has been verified and approved by the [facility] for clinical use on nasal swab specimens. It is not FDA-cleared for use on bronchial wash/lavage samples. However, for this sample type, validation was performed and test characteristics were determined and approved, by [facility] for clinical use under the Clinical Laboratory Improvement Amendments (CLIA) of 1988 requirements. Therefore, FDA clearance isnot required. This laboratory is CLIA-certified and [employer] ([employer])-accredited to perform high complexity testing.POCT-GLUCOSE [id number] 17:42:00 Test Item Value Reference Range Comments POC-GLUCOSE METER (BEAKER) 277 mg/dL 70-110 TESTED AT [address] (test naqu=9706) [facility] [address] POCT-GLUCOSE [id number] 14:59:00 Test Item Value Reference Range Comments POC-GLUCOSE METER (BEAKER) 328 mg/dL 70-110 Will Repeat Test/TESTED AT (test ydio=4908) [place] [id number] POCT-GLUCOSE [id number] 12:42:00 Test Item Value Reference Range Comments POC-GLUCOSE METER (BEAKER) 152 mg/dL 70-110 TESTED AT [address] (test tcjk=5997) [facility] [address] POCT-GLUCOSE [id number] 12:22:00 Test Item Value Reference Range Comments POC-GLUCOSE METER (BEAKER) 168 mg/dL 70-110 TESTED AT [address] (test gkau=5670) [place] [address] COMPREHENSIVE METABOLIC [id number] 10:53:00 Test Item Value Reference Range Comments TOTAL PROTEIN (BEAKER) 7.0 gm/dL 6.0-8.3 (test azgy=110) ALBUMIN (BEAKER) (test 2.8 g/dL 3.5-5.0 qibh=6578) ALKALINE PHOSPHATASE 140 U/L 40-150 (BEAKER) (test ilpu=532) BILIRUBIN TOTAL (BEAKER) 0.1 mg/dL 0.2-1.2 (test gbcf=189) SODIUM (BEAKER) (test 135 meq/L 136-145 heui=369) POTASSIUM (BEAKER) (test 4.0 meq/L 3.5-5.1 guai=082) CHLORIDE (BEAKER) (test 96 meq/L 98-107 imnt=448) CO2 (BEAKER) (test 30 meq/L 22-29 zpkp=165) BLOOD UREA NITROGEN 15 mg/dL 7-21 (BEAKER) (test iabh=699) CREATININE (BEAKER) (test 0.70 mg/dL 0.57-1.25 qdix=374) GLUCOSE RANDOM (BEAKER) 156 mg/dL 70-105 (test qgxu=359) CALCIUM (BEAKER) (test 8.5 mg/dL 8.4-10.2 etmb=012) AST (SGOT) (BEAKER) (test 73 U/L 5-34 igmv=037) ALT (SGPT) (BEAKER) (test 44 U/L 6-55 npdc=430) EGFR (BEAKER) (test 123 mL/min/1.73 sq ESTIMATED GFR IS NOT sora=1649) m ACCURATE CREATININE CLEARANCE IN PREDICTING GLOMERULAR FILTRATION RATE. ESTIMATED GFR IS NOT APPLICABLE FOR DIALYSIS PATIENTS. POCT-GLUCOSE [id number] 10:43:00 Test Item Value Reference Range Comments POC-GLUCOSE METER (BEAKER) 126 mg/dL 70-110 TESTED AT [address] (test atja=3148) [facility] [address] CBC W/PLT COUNT & AUTO [id number] 10:40:00 Test Item Value Reference Range Comments WHITE BLOOD CELL COUNT (BEAKER) (test lzep=511) 19.7 K/ L 3.5-10.5 RED BLOOD CELL COUNT (BEAKER) (test kktp=941) 4.46 M/ L 3.93-5.22 HEMOGLOBIN (BEAKER) (test nsfg=604) 12.1 GM/DL 11.2-15.7 HEMATOCRIT (BEAKER) (test uowk=759) 38.8 % 34.1-44.9 MEAN CORPUSCULAR VOLUME (BEAKER) (test edwx=050) 87.0 fL 79.4-94.8 MEAN CORPUSCULAR HEMOGLOBIN (BEAKER) (test 27.1 pg 25.6-32.2 thzj=499) MEAN CORPUSCULAR HEMOGLOBIN CONC (BEAKER) (test 31.2 GM/DL 32.2-35.5 zxjz=431) RED CELL DISTRIBUTION WIDTH (BEAKER) (test 15.1 % 11.7-14.4 iata=808) PLATELET COUNT (BEAKER) (test xatu=293) 354 K/CU MM 150-450 MEAN PLATELET VOLUME (BEAKER) (test ukvy=841) 11.4 fL 9.4-12.3 NUCLEATED RED BLOOD CELLS (BEAKER) (test 0 /100 WBC 0-0 qdfy=527) NEUTROPHILS RELATIVE PERCENT (BEAKER) (test 87 % ljnc=861) LYMPHOCYTES RELATIVE PERCENT (BEAKER) (test 6 % twxz=373) MONOCYTES RELATIVE PERCENT (BEAKER) (test 4 % lnsf=662) EOSINOPHILS RELATIVE PERCENT (BEAKER) (test 0 % uhhx=763) BASOPHILS RELATIVE PERCENT (BEAKER) (test 0 % ceuh=344) NEUTROPHILS ABSOLUTE COUNT (BEAKER) (test 17.07 K/ L 1.56-6.13 sblc=806) LYMPHOCYTES ABSOLUTE COUNT (BEAKER) (test 1.22 K/ L 1.18-3.74 fznc=552) MONOCYTES ABSOLUTE COUNT (BEAKER) (test 0.82 K/ L 0.24-0.36 caev=209) EOSINOPHILS ABSOLUTE COUNT (BEAKER) (test 0.00 K/ L 0.04-0.36 umjf=229) BASOPHILS ABSOLUTE COUNT (BEAKER) (test 0.05 K/ L 0.01-0.08 vhcz=377) IMMATURE GRANULOCYTES-RELATIVE PERCENT (BEAKER) 3 % 0-1 (test iphp=9786) POCT-GLUCOSE [id number] 10:22:00 Test Item Value Reference Range Comments POC-GLUCOSE METER (BEAKER) 95 mg/dL 70-110 TESTED AT [facility] [address] [facility] (test nyrb=9190) [facility] [address] [id number] 09:47:00 Test Item Value Reference Range Comments CREATININE (BEAKER) (test 0.71 mg/dL 0.57-1.25 kghm=560) EGFR (BEAKER) (test 121 mL/min/1.73 sq m ESTIMATED GFR IS NOT hkem=9027) ACCURATE CREATININE CLEARANCE IN PREDICTING GLOMERULAR FILTRATION RATE. ESTIMATED GFR IS NOT APPLICABLE FOR DIALYSIS PATIENTS. [id number] 09:41:00 Test Item Value Reference Range Comments BLOOD UREA NITROGEN (BEAKER) (test rxyv=179) 15 mg/dL 7-21 LACTIC ACID, VENOUS, WHOLE [id number] 09:18:00 Test Item Value Reference Range Comments LACTATE BLOOD VENOUS (2) (BEAKER) (test 1.1 mmol/L 0.5-2.2 ghuo=6918) CBC W/PLT COUNT & AUTO [id number] 09:13:00 Test Item Value Reference Range Comments WHITE BLOOD CELL COUNT (BEAKER) (test npum=733) 20.0 K/ L 3.5-10.5 RED BLOOD CELL COUNT (BEAKER) (test ratd=330) 4.30 M/ L 3.93-5.22 HEMOGLOBIN (BEAKER) (test ifgp=294) 11.6 GM/DL 11.2-15.7 HEMATOCRIT (BEAKER) (test pjim=968) 37.1 % 34.1-44.9 MEAN CORPUSCULAR VOLUME (BEAKER) (test gimw=012) 86.3 fL 79.4-94.8 MEAN CORPUSCULAR HEMOGLOBIN (BEAKER) (test 27.0 pg 25.6-32.2 hrac=264) MEAN CORPUSCULAR HEMOGLOBIN CONC (BEAKER) (test 31.3 GM/DL 32.2-35.5 bytl=466) RED CELL DISTRIBUTION WIDTH (BEAKER) (test 15.0 % 11.7-14.4 izxv=869) PLATELET COUNT (BEAKER) (test qpwd=098) 409 K/CU MM 150-450 MEAN PLATELET VOLUME (BEAKER) (test daai=675) 11.0 fL 9.4-12.3 NUCLEATED RED BLOOD CELLS (BEAKER) (test 0 /100 WBC 0-0 fkiw=258) NEUTROPHILS RELATIVE PERCENT (BEAKER) (test 83 % gwky=507) LYMPHOCYTES RELATIVE PERCENT (BEAKER) (test 6 % sply=633) MONOCYTES RELATIVE PERCENT (BEAKER) (test 6 % kxnt=724) EOSINOPHILS RELATIVE PERCENT (BEAKER) (test 0 % gbgt=295) BASOPHILS RELATIVE PERCENT (BEAKER) (test 0 % wzgn=939) NEUTROPHILS ABSOLUTE COUNT (BEAKER) (test 16.63 K/ L 1.56-6.13 zcpc=766) LYMPHOCYTES ABSOLUTE COUNT (BEAKER) (test 1.24 K/ L 1.18-3.74 oiou=453) MONOCYTES ABSOLUTE COUNT (BEAKER) (test 1.21 K/ L 0.24-0.36 rqla=037) EOSINOPHILS ABSOLUTE COUNT (BEAKER) (test 0.00 K/ L 0.04-0.36 zuoz=779) BASOPHILS ABSOLUTE COUNT (BEAKER) (test 0.06 K/ L 0.01-0.08 xdyu=736) IMMATURE GRANULOCYTES-RELATIVE PERCENT (BEAKER) 4 % 0-1 (test trop=7701) POCT-BLOOD GASES, [id number] 09:11:00 Test Item Value Reference Range Comments TEMP, CELSIUS-POC (BEAKER) 37.0 (test onsq=6592) FIO2-POC (BEAKER) (test TESTED AT [place] [address] [address] wajq=3354) [place] [address] PH, VENOUS-POC (BEAKER) 7.377 7.320-7.420 (test ntjy=8706) PCO2, VENOUS-POC (BEAKER) 61.0 mm Hg 41.0-51.0 (test aoso=6654) PO2, VENOUS-POC (BEAKER) 36.0 mm Hg 25.0-40.0 (test dphb=9203) SO2, VENOUS-POC (BEAKER) 66.0 % 40.0-70.0 (test sqrn=9063) HCO3, VENOUS-POC (BEAKER) 35.8 meq/L 21.0-29.0 (test sndo=8170) BASE EXCESS, VENOUS-POC 11.0 meq/L -2.0-3.0 (BEAKER) (test mifw=3018) [id number] 09:11:00 Test Item Value Reference Range Comments POC-SODIUM (BEAKER) (test 138 meq/L 135-148 TESTED AT [place] [address] [address] wttg=4504) [place] [address] [id number] 09:11:00 Test Item Value Reference Range Comments POC-POTASSIUM (BEAKER) (test 2.9 meq/L 3.6-5.5 TESTED AT [place] [address] [address] yslh=2488) [place] [address] [id number] 09:11:00 Test Item Value Reference Range Comments POC-GLUCOSE (BEAKER) (test 143 mg/dL 70-110 TESTED AT [place] [address] [address] vkqp=4801) [place] [address] POCT-CALCIUM [id number] 09:11:00 Test Item Value Reference Range Comments POC-CALCIUM IONIZED (BEAKER) 1.10 mmol/L 1.12-1.27 TESTED AT [address] (test jdiq=0022) [place] [address] [id number] 09:11:00 Test Item Value Reference Range Comments POC-HEMATOCRIT (BEAKER) (test 36 % 36-45 TESTED AT [address] mpmd=9780) [place] [address] [id number] 09:11:00 Test Item Value Reference Range Comments POC-HEMOGLOBIN (BEAKER) 12.2 g/dL 12.0-15.0 TESTED AT [address] (test nctt=3924) [place] [address]TESTED AT [place] [address] POCT-LACTIC ACID, [id number] 09:11:00 Test Item Value Reference Range Comments POC-LACTIC ACID, VENOUS 1.2 mmol/L 0.9-1.7 TESTED AT [address] (BEAKER) (test agac=6700) [place] [id number] POCT-GLUCOSE [id number] 08:55:00 Test Item Value Reference Range Comments POC-GLUCOSE METER (BEAKER) 283 mg/dL 70-110 TESTED AT [address] (test gqfz=4796) [place] [address] POCT-GLUCOSE [id number] 08:34:00 Test Item Value Reference Range Comments POC-GLUCOSE METER (BEAKER) < mg/dL 70-110 OUTSIDE MEASURING RANGEWill (test pqgn=1839) Repeat Test/TESTED AT [place] [id number] POCT-GLUCOSE [id number] 21:30:00 Test Item Value Reference Range Comments POC-GLUCOSE METER (BEAKER) 184 mg/dL 70-110 TESTED AT [address] (test gcjq=7224) [place] [address] POCT-GLUCOSE [id number] 18:56:00 Test Item Value Reference Range Comments POC-GLUCOSE METER (BEAKER) 128 mg/dL 70-110 TESTED AT [address] (test xsul=1794) [place] [address] POCT-GLUCOSE [id number] 15:23:00 Test Item Value Reference Range Comments POC-GLUCOSE METER (BEAKER) 41 mg/dL 70-110 Will Repeat Test/TESTED AT (test xdnh=4814) [place] [address] POCT-GLUCOSE [id number] 13:56:00 Test Item Value Reference Range Comments POC-GLUCOSE METER (BEAKER) 105 mg/dL 70-110 TESTED AT [address] (test pjoy=5838) [place] [address] POCT-GLUCOSE [id number] 07:40:00 Test Item Value Reference Range Comments POC-GLUCOSE METER (BEAKER) 321 mg/dL 70-110 Will Repeat Test/TESTED AT (test zxjl=9662) [place] [address] [id number] 06:19:00 Test Item Value Reference Range Comments BLOOD UREA NITROGEN (BEAKER) (test wcgz=639) 13 mg/dL 7-21 [id number] 06:19:00 Test Item Value Reference Range Comments CREATININE (BEAKER) (test 0.77 mg/dL 0.57-1.25 awaz=436) EGFR (BEAKER) (test 110 mL/min/1.73 sq m ESTIMATED GFR IS NOT vgnb=8775) ACCURATE CREATININE CLEARANCE IN PREDICTING GLOMERULAR FILTRATION RATE. ESTIMATED GFR IS NOT APPLICABLE FOR DIALYSIS PATIENTS. POCT-GLUCOSE [id number] 21:13:00 Test Item Value Reference Range Comments POC-GLUCOSE METER (BEAKER) 328 mg/dL 70-110 TESTED AT [address] (test pfdv=0909) [place] [address] POCT-GLUCOSE [id number] 16:33:00 Test Item Value Reference Range Comments POC-GLUCOSE METER (BEAKER) 309 mg/dL 70-110 TESTED AT [address] (test oclh=0992) [place] [address] [id number] 12:59:00 Test Item Value Reference Range Comments BLOOD UREA NITROGEN (BEAKER) (test kxig=606) 11 mg/dL 7-21 [id number] 12:59:00 Test Item Value Reference Range Comments CREATININE (BEAKER) (test 0.93 mg/dL 0.57-1.25 tlaj=192) EGFR (BEAKER) (test 88 mL/min/1.73 sq m ESTIMATED GFR IS NOT tyye=5106) ACCURATE CREATININE CLEARANCE IN PREDICTING GLOMERULAR FILTRATION RATE. ESTIMATED GFR IS NOT APPLICABLE FOR DIALYSIS PATIENTS. POCT-GLUCOSE [id number] 12:45:00 Test Item Value Reference Range Comments POC-GLUCOSE METER (BEAKER) 206 mg/dL 70-110 TESTED AT [address] (test ubwv=6266) [place] [id number] BASIC METABOLIC [id number] 10:43:00 Test Item Value Reference Range Comments SODIUM (BEAKER) (test 136 meq/L 136-145 uhfc=801) POTASSIUM (BEAKER) (test 4.0 meq/L 3.5-5.1 cgci=853) CHLORIDE (BEAKER) (test 100 meq/L 98-107 anwb=278) CO2 (BEAKER) (test 25 meq/L 22-29 jhuw=851) BLOOD UREA NITROGEN 10 mg/dL 7-21 (BEAKER) (test idhn=538) CREATININE (BEAKER) (test 0.88 mg/dL 0.57-1.25 fiep=792) GLUCOSE RANDOM (BEAKER) 440 mg/dL 70-105 (test sgba=189) CALCIUM (BEAKER) (test 9.4 mg/dL 8.4-10.2 epzy=574) EGFR (BEAKER) (test 94 mL/min/1.73 sq m ESTIMATED GFR IS NOT ocpp=6272) ACCURATE CREATININE CLEARANCE IN PREDICTING GLOMERULAR FILTRATION RATE. ESTIMATED GFR IS NOT APPLICABLE FOR DIALYSIS PATIENTS. KETONE, [id number] 10:27:00 Test Item Value Reference Range Comments KETONES, BLOOD (BEAKER) (test kthy=5261) 0.1 mmol/L <0.4 POCT-GLUCOSE [id number] 09:46:00 Test Item Value Reference Range Comments POC-GLUCOSE METER (BEAKER) 468 mg/dL 70-110 TESTED AT [address] (test phtb=4245) [place] [id number] POCT-GLUCOSE [id number] 09:06:00 Test Item Value Reference Range Comments POC-GLUCOSE METER (BEAKER) 447 mg/dL 70-110 Will Repeat Test/TESTED AT (test hfcx=1185) [place] [id number] POCT-GLUCOSE [id number] 04:35:00 Test Item Value Reference Range Comments POC-GLUCOSE METER (BEAKER) 430 mg/dL 70-110 Notified JORDON STAPLETON/TESTED AT [facility] (test tmnr=0036) [address] [place] [address] POCT-GLUCOSE [id number] 00:48:00 Test Item Value Reference Range Comments POC-GLUCOSE METER (BEAKER) 481 mg/dL 70-110 Notified RN MD/TESTED AT [facility] (test vuus=8991) [address] [place] [address] SPIN/CONCENTRATION [id number] 00:21:00 Test Item Value Reference Range Comments CONCENTRATION CHARGED (BEAKER) (test xuqx=5057) Done POCT-GLUCOSE [id number] 22:01:00 Test Item Value Reference Range Comments POC-GLUCOSE METER (BEAKER) > mg/dL 70-110 OUTSIDE MEASURING RANGENotified RN (test lhdd=6114) MD/TESTED AT [address] [address] RESPIRATORY PANEL [id number] 20:48:00 Test Item Value Reference Range Comments HUMAN METAPNEUMOVIRUS (BEAKER) (test Not detected Not detected, Equivocal gore=3925) RHINOVIRUS (BEAKER) (test nmlc=2498) Not detected Not detected, Equivocal INFLUENZA A (BEAKER) (test upym=8914) Not detected Not detected, Equivocal INFLUENZA A (NO SUBTYPE) (test Not detected, Equivocal gpnf=9799) INFLUENZA A SUBTYPE H1 (BEAKER) (test Not detected, Equivocal rved=4549) INFLUENZA A SUBTYPE H3 (BEAKER) (test Not detected, Equivocal xebb=2645) INFLUENZA A SUBTYPE H1-2009 (BEAKER) Not detected, Equivocal (test tbhe=3181) INFLUENZA B (BEAKER) (test vobn=1073) Not detected Not detected, Equivocal RESPIRATORY SYNCYTIAL VIRUS (BEAKER) Not detected Not detected, Equivocal (test vxgk=7594) PARAINFLUENZA VIRUS 1 (BEAKER) (test Not detected Not detected, Equivocal uxti=8561) PARAINFLUENZA VIRUS 2 (BEAKER) (test Not detected Not detected, Equivocal bnej=0094) PARAINFLUENZA VIRUS 3 (BEAKER) (test Not detected Not detected, Equivocal thxq=8992) PARAINFLUENZA VIRUS 4 (BEAKER) (test Not detected Not detected, Equivocal xkjz=4114) ADENOVIRUS (BEAKER) (test wzdm=5323) Not detected Not detected, Equivocal CORONAVIRUS 229E (BEAKER) (test Not detected Not detected, Equivocal ofmc=3309) CORONAVIRUS HKU1 (BEAKER) (test Not detected Not detected, Equivocal zbhr=8866) CORONAVIRUS NL63 (BEAKER) (test Not detected Not detected, Equivocal flfb=9172) CORONAVIRUS OC43 (BEAKER) (test Not detected Not detected, Equivocal gbgm=1777) BORDETELLA PERTUSSIS (BEAKER) (test Not detected Not detected, Equivocal tcnq=4352) CHLAMYDOPHILA PNEUMONIAE (BEAKER) (test Not detected Not detected, Equivocal lfss=2663) MYCOPLASMA PNEUMONIAE (BEAKER) (test Not detected Not detected, Equivocal yiaz=6524) Other viruses and bacteria not targeted by this PCR panel cannot be excluded; therefore clinical correlation and follow up of serology, culture results, and other molecular studies is required. The results are not intended to be used as the sole means for clinical diagnosis or patient management decisions. This sample was tested at the [facility] using the [employer] Respiratory Panel. It is FDA cleared and has been verified and approved by the [facility] for clinical use on nasal swab specimens. It is not FDA-cleared for use on bronchial wash/lavage samples. However, for this sample type, validation was performed and test characteristics were determined and approved, by [facility] for clinical use under the Clinical Laboratory Improvement Amendments (CLIA) of 1988 requirements. Therefore, FDA clearance isnot required. This laboratory is CLIA-certified and [employer] ([employer])-accredited to perform high complexity testing.POCT-GLUCOSE [id number] 18:50:00 Test Item Value Reference Range Comments POC-GLUCOSE METER (BEAKER) > mg/dL 70-110 OUTSIDE MEASURING RANGETESTED AT (test fvxk=3228) [address] [address] POCT-GLUCOSE [id number] 13:49:00 Test Item Value Reference Range Comments POC-GLUCOSE METER (BEAKER) > mg/dL 70-110 OUTSIDE MEASURING RANGETESTED AT (test nfqj=3614) [address] [address] HEMOGLOBIN [id number] 09:49:00 Test Item Value Reference Range Comments HEMOGLOBIN A1C (BEAKER) (test mpbk=663) 12.9 % 4.3-6.1 POCT-GLUCOSE [id number] 08:18:00 Test Item Value Reference Range Comments POC-GLUCOSE METER (BEAKER) 301 mg/dL 70-110 TESTED AT [facility] [address] (test akio=6731) [place] [address] URINALYSIS [id number] 06:31:00 Test Item Value Reference Range Comments RBC UA (BEAKER) (test svye=832) 2 /HPF WBC UA (BEAKER) (test qcxr=746) 4 /HPF BACTERIA (BEAKER) (test fqax=252) Rare MUCUS (BEAKER) (test nywn=8871) Rare SQUAMOUS EPITHELIAL (BEAKER) (test ncop=911) 4 /HPF YEAST (BEAKER) (test eusr=7186) Few URINALYSIS WITH MICROSCOPIC IF [id number] 06:24:00 Test Item Value Reference Range Comments COLOR (BEAKER) (test fycb=684) Light Yellow CLARITY (BEAKER) (test kpyz=365) Clear SPECIFIC GRAVITY UA (BEAKER) (test nzvc=041) 1.014 1.001-1.035 PH UA (BEAKER) (test vzec=772) 6.5 5.0-8.0 PROTEIN UA (BEAKER) (test nury=536) 30 mg/dL Negative GLUCOSE UA (BEAKER) (test ujpp=809) >1000 mg/dL Negative KETONES UA (BEAKER) (test jhnx=506) Negative Negative BILIRUBIN UA (BEAKER) (test vzrd=643) Negative Negative BLOOD UA (BEAKER) (test lsyz=895) Trace Negative NITRITE UA (BEAKER) (test sssa=314) Negative Negative LEUKOCYTE ESTERASE UA (BEAKER) (test yulb=196) Negative Negative UROBILINOGEN UA (BEAKER) (test okoz=195) 0.2 mg/dL 0.2-1.0 SOURCE(BEAKER) (test itgl=7718) COMPREHENSIVE METABOLIC [id number] 05:21:00 Test Item Value Reference Range Comments TOTAL PROTEIN (BEAKER) 7.0 gm/dL 6.0-8.3 Specimen slightly (test wple=667) hemolyzed ALBUMIN (BEAKER) (test 2.7 g/dL 3.5-5.0 Specimen slightly hjjs=8157) hemolyzed ALKALINE PHOSPHATASE 164 U/L 40-150 (BEAKER) (test aflj=998) BILIRUBIN TOTAL (BEAKER) 0.1 mg/dL 0.2-1.2 Specimen slightly (test dmmp=031) hemolyzed SODIUM (BEAKER) (test 132 meq/L 136-145 uuys=521) POTASSIUM (BEAKER) (test 4.8 meq/L 3.5-5.1 Specimen slightly xbhh=115) hemolyzed CHLORIDE (BEAKER) (test 100 meq/L 98-107 nevm=824) CO2 (BEAKER) (test 23 meq/L 22-29 xgmn=577) BLOOD UREA NITROGEN 6 mg/dL 7-21 (BEAKER) (test fhop=589) CREATININE (BEAKER) (test 0.75 mg/dL 0.57-1.25 Specimen slightly ayyu=163) hemolyzed GLUCOSE RANDOM (BEAKER) 468 mg/dL 70-105 (test vnrt=886) CALCIUM (BEAKER) (test 8.1 mg/dL 8.4-10.2 fymb=354) AST (SGOT) (BEAKER) (test 20 U/L 5-34 Specimen slightly omhx=869) hemolyzed ALT (SGPT) (BEAKER) (test 11 U/L 6-55 Specimen slightly sxmb=652) hemolyzed EGFR (BEAKER) (test 113 mL/min/1.73 sq ESTIMATED GFR IS NOT ycsf=0221) m ACCURATE CREATININE CLEARANCE IN PREDICTING GLOMERULAR FILTRATION RATE. ESTIMATED GFR IS NOT APPLICABLE FOR DIALYSIS PATIENTS. [id number] 05:05:00 Test Item Value Reference Range Comments MAGNESIUM (BEAKER) (test 1.4 mg/dL 1.6-2.6 Specimen slightly hemolyzed kbbf=864) [id number] 05:05:00 Test Item Value Reference Range Comments PHOSPHORUS (BEAKER) (test 3.9 mg/dL 2.3-4.7 Specimen slightly hemolyzed edfr=038) [id number] 05:05:00 Test Item Value Reference Range Comments BLOOD UREA NITROGEN (BEAKER) (test jsnv=554) 6 mg/dL 7-21 [id number] 05:05:00 Test Item Value Reference Range Comments CREATININE (BEAKER) (test 0.75 mg/dL 0.57-1.25 Specimen slightly pnsk=353) hemolyzed EGFR (BEAKER) (test 113 mL/min/1.73 sq m ESTIMATED GFR IS NOT crbk=2496) ACCURATE CREATININE CLEARANCE IN PREDICTING GLOMERULAR FILTRATION RATE. ESTIMATED GFR IS NOT APPLICABLE FOR DIALYSIS PATIENTS. GAMMA GLUTAMYL TRANSFERASE (GGT)2018-09-23 05:05:00 Test Item Value Reference Range Comments GAMMA GLUTAMYL TRANSFERASE 29 U/L 9-64 Specimen slightly hemolyzed (BEAKER) (test rkaf=573) POCT-GLUCOSE [id number] 04:43:00 Test Item Value Reference Range Comments POC-GLUCOSE METER (BEAKER) 493 mg/dL 70-110 Notified JORDON STAPLETON/TESTED AT [facility] (test zwad=2642) [address] [place] [address] CBC W/PLT COUNT & AUTO [id number] 04:15:00 Test Item Value Reference Range Comments WHITE BLOOD CELL COUNT (BEAKER) (test pnyn=487) 9.2 K/ L 3.5-10.5 RED BLOOD CELL COUNT (BEAKER) (test pvsg=115) 4.24 M/ L 3.93-5.22 HEMOGLOBIN (BEAKER) (test gtax=700) 11.0 GM/DL 11.2-15.7 HEMATOCRIT (BEAKER) (test tvqk=170) 37.0 % 34.1-44.9 MEAN CORPUSCULAR VOLUME (BEAKER) (test uosb=344) 87.3 fL 79.4-94.8 MEAN CORPUSCULAR HEMOGLOBIN (BEAKER) (test 25.9 pg 25.6-32.2 jptl=041) MEAN CORPUSCULAR HEMOGLOBIN CONC (BEAKER) (test 29.7 GM/DL 32.2-35.5 efpw=098) RED CELL DISTRIBUTION WIDTH (BEAKER) (test 14.9 % 11.7-14.4 nzxo=216) PLATELET COUNT (BEAKER) (test ujhm=533) 418 K/CU MM 150-450 MEAN PLATELET VOLUME (BEAKER) (test ejdr=653) 10.8 fL 9.4-12.3 NUCLEATED RED BLOOD CELLS (BEAKER) (test 0 /100 WBC 0-0 jtmi=163) NEUTROPHILS RELATIVE PERCENT (BEAKER) (test 88 % qhhb=977) LYMPHOCYTES RELATIVE PERCENT (BEAKER) (test 8 % tdml=806) MONOCYTES RELATIVE PERCENT (BEAKER) (test 2 % plqg=317) EOSINOPHILS RELATIVE PERCENT (BEAKER) (test 1 % hdug=801) BASOPHILS RELATIVE PERCENT (BEAKER) (test 0 % zokn=731) NEUTROPHILS ABSOLUTE COUNT (BEAKER) (test 8.13 K/ L 1.56-6.13 maau=005) LYMPHOCYTES ABSOLUTE COUNT (BEAKER) (test 0.73 K/ L 1.18-3.74 bitr=286) MONOCYTES ABSOLUTE COUNT (BEAKER) (test 0.22 K/ L 0.24-0.36 aksd=653) EOSINOPHILS ABSOLUTE COUNT (BEAKER) (test 0.11 K/ L 0.04-0.36 hggf=736) BASOPHILS ABSOLUTE COUNT (BEAKER) (test 0.03 K/ L 0.01-0.08 hzpf=052) IMMATURE GRANULOCYTES-RELATIVE PERCENT (BEAKER) 0 % 0-1 (test dbmv=5273) POCT-LACTIC ACID, [id number] 21:07:00 Test Item Value Reference Range Comments POC-LACTIC ACID, VENOUS 1.5 mmol/L 0.9-1.7 TESTED AT [address] (BEAKER) (test npzw=2554) [facility] [address] RAD, CHEST, 2 [id number] 20:59:00Reason for exam:->SHORTNESS OF BREATHShould this be [...] No acute cardiopulmonary abnormality. Signed: Jerald Swartz Verified Date /Time: 09/22/2018 20:59:18 Reading Location: [facility] C013W Consult Reading Room TROPONIN [id number] 20:13:00 Test Item Value Reference Range Comments TROPONIN I (BEAKER) (test opvt=363) < ng/mL 0.00-0.03 [id number] 20:07:00 Test Item Value Reference Range Comments MAGNESIUM (BEAKER) (test fauv=287) 1.7 mg/dL 1.6-2.6 COMPREHENSIVE METABOLIC [id number] 20:07:00 Test Item Value Reference Range Comments TOTAL PROTEIN (BEAKER) 6.6 gm/dL 6.0-8.3 (test zxtu=769) ALBUMIN (BEAKER) (test 2.7 g/dL 3.5-5.0 ugkw=2643) ALKALINE PHOSPHATASE 151 U/L 40-150 (BEAKER) (test sxpl=650) BILIRUBIN TOTAL (BEAKER) 0.1 mg/dL 0.2-1.2 (test sbtc=838) SODIUM (BEAKER) (test 138 meq/L 136-145 eefh=564) POTASSIUM (BEAKER) (test 4.0 meq/L 3.5-5.1 kuxv=922) CHLORIDE (BEAKER) (test 105 meq/L 98-107 pwih=919) CO2 (BEAKER) (test 27 meq/L 22-29 etzh=766) BLOOD UREA NITROGEN 6 mg/dL 7-21 (BEAKER) (test jjyk=735) CREATININE (BEAKER) (test 0.67 mg/dL 0.57-1.25 zesj=890) GLUCOSE RANDOM (BEAKER) 113 mg/dL 70-105 (test wevh=130) CALCIUM (BEAKER) (test 8.5 mg/dL 8.4-10.2 zfjf=243) AST (SGOT) (BEAKER) (test 23 U/L 5-34 qmag=728) ALT (SGPT) (BEAKER) (test 11 U/L 6-55 cdpj=430) EGFR (BEAKER) (test 129 mL/min/1.73 sq ESTIMATED GFR IS NOT gbfa=3680) m ACCURATE CREATININE CLEARANCE IN PREDICTING GLOMERULAR FILTRATION RATE. ESTIMATED GFR IS NOT APPLICABLE FOR DIALYSIS PATIENTS. [id number] 20:07:00 Test Item Value Reference Range Comments LIPASE (BEAKER) (test erxt=527) < U/L 8-78 [id number] 20:03:00 Test Item Value Reference Range Comments PROTIME (BEAKER) (test rzxo=592) 14.1 seconds 11.7-14.7 INR (BEAKER) (test fpey=197) 1.1 <=5.9 PARTIAL THROMBOPLASTIN TIME (BEAKER) (test 34.3 seconds 22.5-36.0 rhov=047) RECOMMENDED COUMADIN/WARFARIN INR THERAPY RANGESSTANDARD DOSE: 2.0 - 3.0 Includes: PROPHYLAXIS forvenous thrombosis, systemic embolization; TREATMENT for venous thrombosis and/or pulmonary embolus.HIGH RISK: Target INR is 2.5-3.5 for patients with mechanical heart valves.CBC W/PLT COUNT & AUTO [id number] 19:57:00 Test Item Value Reference Range Comments WHITE BLOOD CELL COUNT (BEAKER) (test jasg=366) 11.7 K/ L 3.5-10.5 RED BLOOD CELL COUNT (BEAKER) (test cavm=463) 4.08 M/ L 3.93-5.22 HEMOGLOBIN (BEAKER) (test fgmt=534) 10.7 GM/DL 11.2-15.7 HEMATOCRIT (BEAKER) (test ifze=628) 35.5 % 34.1-44.9 MEAN CORPUSCULAR VOLUME (BEAKER) (test cqng=964) 87.0 fL 79.4-94.8 MEAN CORPUSCULAR HEMOGLOBIN (BEAKER) (test 26.2 pg 25.6-32.2 focw=147) MEAN CORPUSCULAR HEMOGLOBIN CONC (BEAKER) (test 30.1 GM/DL 32.2-35.5 lvea=186) RED CELL DISTRIBUTION WIDTH (BEAKER) (test 14.9 % 11.7-14.4 kxul=401) PLATELET COUNT (BEAKER) (test zwpg=440) 416 K/CU MM 150-450 MEAN PLATELET VOLUME (BEAKER) (test bvug=969) 10.3 fL 9.4-12.3 NUCLEATED RED BLOOD CELLS (BEAKER) (test 0 /100 WBC 0-0 tjxb=234) NEUTROPHILS RELATIVE PERCENT (BEAKER) (test 71 % euht=185) LYMPHOCYTES RELATIVE PERCENT (BEAKER) (test 17 % grtb=044) MONOCYTES RELATIVE PERCENT (BEAKER) (test 9 % uryk=880) EOSINOPHILS RELATIVE PERCENT (BEAKER) (test 2 % xsdk=521) BASOPHILS RELATIVE PERCENT (BEAKER) (test 0 % lpyt=704) NEUTROPHILS ABSOLUTE COUNT (BEAKER) (test 8.30 K/ L 1.56-6.13 wwai=288) LYMPHOCYTES ABSOLUTE COUNT (BEAKER) (test 2.01 K/ L 1.18-3.74 uqxs=115) MONOCYTES ABSOLUTE COUNT (BEAKER) (test 1.00 K/ L 0.24-0.36 itza=605) EOSINOPHILS ABSOLUTE COUNT (BEAKER) (test 0.26 K/ L 0.04-0.36 lqle=345) BASOPHILS ABSOLUTE COUNT (BEAKER) (test 0.05 K/ L 0.01-0.08 ynpm=769) IMMATURE GRANULOCYTES-RELATIVE PERCENT (BEAKER) 0 % 0-1 (test pagc=1705) FUNGUS CULTURE + [id number] 11:38:00 Test Item Value Reference Range Comments CULTURE (BEAKER) (test 1 out of 3 media Penicillium vqmm=1272) speciesThis is a corrected organism result. Previous result was Mold on 09/05/2018 at 0812 [employer] FUNGUS SMEAR (BEAKER) (test 2+ yeast iuas=9014) CF RESPIRATORY [id number] 15:08:00 Test Item Value Reference Range Comments CULTURE (BEAKER) (test PSEUDOMONAS SPECIES 4+ Pseudomonas vnzl=8719) species Amikacin (test code=1) Susceptible 0-16 , [...] >4 CULTURE (BEAKER) (test PSEUDOMONAS 4+ Pseudomonas tkgs=7624) AERUGINOSA aeruginosa (MUCOID-PHENOTYPE) (Mucoid-phenotype)of a second type [...] or >4 3+ Normal respiratory derick presentPOCT-GLUCOSE [id number] 13:25:00 Test Item Value Reference Range Comments POC-GLUCOSE METER (BEAKER) 178 mg/dL 70-110 TESTED AT [facility] [address] [facility] (test tatf=3306) [facility] [address] [id number] 11:51:00 Test Item Value Reference Range Comments POTASSIUM (BEAKER) (test qixf=857) 4.6 meq/L 3.5-5.1 BASIC METABOLIC [id number] 10:31:00 Test Item Value Reference Range Comments SODIUM (BEAKER) (test 136 meq/L 136-145 plzw=536) POTASSIUM (BEAKER) (test 5.6 meq/L 3.5-5.1 xpre=134) CHLORIDE (BEAKER) (test 95 meq/L 98-107 lpjp=434) CO2 (BEAKER) (test 36 meq/L 22-29 wvud=153) BLOOD UREA NITROGEN 20 mg/dL 7-21 (BEAKER) (test wwag=298) CREATININE (BEAKER) (test 0.66 mg/dL 0.57-1.25 domb=135) GLUCOSE RANDOM (BEAKER) 182 mg/dL 70-105 (test qxwy=072) CALCIUM (BEAKER) (test 8.6 mg/dL 8.4-10.2 nbxg=356) EGFR (BEAKER) (test 131 mL/min/1.73 sq m ESTIMATED GFR IS NOT ytef=1771) ACCURATE CREATININE CLEARANCE IN PREDICTING GLOMERULAR FILTRATION RATE. ESTIMATED GFR IS NOT APPLICABLE FOR DIALYSIS PATIENTS. [id number] 10:26:00 Test Item Value Reference Range Comments MAGNESIUM (BEAKER) (test otly=004) 1.6 mg/dL 1.6-2.6 POCT-GLUCOSE [id number] 09:00:00 Test Item Value Reference Range Comments POC-GLUCOSE METER (BEAKER) 217 mg/dL 70-110 TESTED AT [address] (test kofh=4235) [facility] [address] POCT-GLUCOSE [id number] 22:17:00 Test Item Value Reference Range Comments POC-GLUCOSE METER (BEAKER) 144 mg/dL 70-110 TESTED AT [address] (test hvxi=3616) [facility] [address] POCT-GLUCOSE [id number] 21:22:00 Test Item Value Reference Range Comments POC-GLUCOSE METER (BEAKER) 239 mg/dL 70-110 TESTED AT [address] (test vuzr=3694) [facility] [address] POCT-GLUCOSE [id number] 14:57:00 Test Item Value Reference Range Comments POC-GLUCOSE METER (BEAKER) 175 mg/dL 70-110 TESTED AT [address] (test ggxu=1886) [facility] [address] RAD, ABDOMEN/KUB, 1 VIEW [id number] 14:55:00Reason for exam:->abdominal painFINAL REPORT EXAM: AP [...] seen. No acute osseous abnormality. Signed: Leonarda [place] Verified Date/Time: 14:55:58 Reading Location: [facility] Mammo Reading Room POCT- GLUCOSE [id number] 11:49:00 Test Item Value Reference Range Comments POC-GLUCOSE METER (BEAKER) 137 mg/dL 70-110 TESTED AT [facility] [address] [facility] (test esps=4377) [facility] [address] POCT-GLUCOSE [id number] 08:36:00 Test Item Value Reference Range Comments POC-GLUCOSE METER (BEAKER) 106 mg/dL 70-110 TESTED AT [facility] [address] [facility] (test awqc=7749) [facility] [address] BASIC METABOLIC [id number] 06:35:00 Test Item Value Reference Range Comments SODIUM (BEAKER) (test 142 meq/L 136-145 qzrr=222) POTASSIUM (BEAKER) (test 3.9 meq/L 3.5-5.1 dows=853) CHLORIDE (BEAKER) (test 95 meq/L 98-107 aknv=784) CO2 (BEAKER) (test 39 meq/L 22-29 hcpi=422) BLOOD UREA NITROGEN 22 mg/dL 7-21 (BEAKER) (test qqbg=839) CREATININE (BEAKER) (test 0.61 mg/dL 0.57-1.25 mubf=039) GLUCOSE RANDOM (BEAKER) 47 mg/dL 70-105 (test cioa=551) CALCIUM (BEAKER) (test 8.6 mg/dL 8.4-10.2 xojb=748) EGFR (BEAKER) (test 144 mL/min/1.73 sq m ESTIMATED GFR IS NOT bdol=1318) ACCURATE CREATININE CLEARANCE IN PREDICTING GLOMERULAR FILTRATION RATE. ESTIMATED GFR IS NOT APPLICABLE FOR DIALYSIS PATIENTS. [id number] 06:35:00 Test Item Value Reference Range Comments MAGNESIUM (BEAKER) (test bzqm=622) 1.4 mg/dL 1.6-2.6 BASIC METABOLIC [id number] 06:35:00 Test Item Value Reference Range Comments SODIUM (BEAKER) (test 141 meq/L 136-145 nkmf=980) POTASSIUM (BEAKER) (test 3.9 meq/L 3.5-5.1 fzcy=342) CHLORIDE (BEAKER) (test 95 meq/L 98-107 kbjw=921) CO2 (BEAKER) (test 39 meq/L 22-29 dkcq=176) BLOOD UREA NITROGEN 22 mg/dL 7-21 (BEAKER) (test zgtg=876) CREATININE (BEAKER) (test 0.61 mg/dL 0.57-1.25 iwip=734) GLUCOSE RANDOM (BEAKER) 46 mg/dL 70-105 (test vsuz=365) CALCIUM (BEAKER) (test 8.6 mg/dL 8.4-10.2 rbns=007) EGFR (BEAKER) (test 144 mL/min/1.73 sq m ESTIMATED GFR IS NOT kqlv=4614) ACCURATE CREATININE CLEARANCE IN PREDICTING GLOMERULAR FILTRATION RATE. ESTIMATED GFR IS NOT APPLICABLE FOR DIALYSIS PATIENTS. POCT-GLUCOSE [id number] 23:02:00 Test Item Value Reference Range Comments POC-GLUCOSE METER (BEAKER) 142 mg/dL 70-110 TESTED AT [address] (test zeow=7755) [place] [address] POCT-GLUCOSE [id number] 19:53:00 Test Item Value Reference Range Comments POC-GLUCOSE METER (BEAKER) 281 mg/dL 70-110 TESTED AT [address] (test itup=2467) [facility] [address] POCT-GLUCOSE [id number] 15:30:00 Test Item Value Reference Range Comments POC-GLUCOSE METER (BEAKER) 155 mg/dL 70-110 TESTED AT [address] (test cpyw=2861) [facility] [address] POCT-GLUCOSE [id number] 09:06:00 Test Item Value Reference Range Comments POC-GLUCOSE METER (BEAKER) 97 mg/dL 70-110 TESTED AT [address] (test bwxn=3282) [facility] [address] POCT-GLUCOSE [id number] 21:52:00 Test Item Value Reference Range Comments POC-GLUCOSE METER (BEAKER) 339 mg/dL 70-110 Notified JORDON STAPLETON/TESTED AT [facility] (test mzxr=1415) [address] [place] [address] POCT-GLUCOSE [id number] 18:04:00 Test Item Value Reference Range Comments POC-GLUCOSE METER (BEAKER) > mg/dL 70-110 OUTSIDE MEASURING RANGETESTED AT (test nhqa=0317) [address] [address] POCT-GLUCOSE [id number] 17:40:00 Test Item Value Reference Range Comments POC-GLUCOSE METER (BEAKER) 49 mg/dL 70-110 TESTED AT [address] (test nalr=1539) [facility] [address] POCT-GLUCOSE [id number] 08:23:00 Test Item Value Reference Range Comments POC-GLUCOSE METER (BEAKER) 70 mg/dL 70-110 TESTED AT [address] (test husc=1860) [facility] [address] POCT-GLUCOSE [id number] 01:59:00 Test Item Value Reference Range Comments POC-GLUCOSE METER (BEAKER) 161 mg/dL 70-110 TESTED AT [address] (test rdzv=2633) [place] [address] POCT-GLUCOSE [id number] 21:38:00 Test Item Value Reference Range Comments POC-GLUCOSE METER (BEAKER) 113 mg/dL 70-110 TESTED AT [address] (test hyca=3664) [place] [address] POCT-GLUCOSE [id number] 17:47:00 Test Item Value Reference Range Comments POC-GLUCOSE METER (BEAKER) 139 mg/dL 70-110 TESTED AT [address] (test wdpl=0045) [place] [address] POCT-GLUCOSE [id number] 12:13:00 Test Item Value Reference Range Comments POC-GLUCOSE METER (BEAKER) 172 mg/dL 70-110 TESTED AT [address] (test edtp=9017) [facility] [address] BASIC METABOLIC [id number] 09:30:00 Test Item Value Reference Range Comments SODIUM (BEAKER) (test 139 meq/L 136-145 jkfb=741) POTASSIUM (BEAKER) (test 4.2 meq/L 3.5-5.1 vhhq=329) CHLORIDE (BEAKER) (test 94 meq/L 98-107 uakd=215) CO2 (BEAKER) (test 37 meq/L 22-29 gvuq=950) BLOOD UREA NITROGEN 19 mg/dL 7-21 (BEAKER) (test vpri=679) CREATININE (BEAKER) (test 0.59 mg/dL 0.57-1.25 zbxq=615) GLUCOSE RANDOM (BEAKER) 101 mg/dL 70-105 (test lqwu=115) CALCIUM (BEAKER) (test 8.1 mg/dL 8.4-10.2 vmkc=738) EGFR (BEAKER) (test 149 mL/min/1.73 sq m ESTIMATED GFR IS NOT yqds=4970) ACCURATE CREATININE CLEARANCE IN PREDICTING GLOMERULAR FILTRATION RATE. ESTIMATED GFR IS NOT APPLICABLE FOR DIALYSIS PATIENTS. POCT-GLUCOSE [id number] 08:40:00 Test Item Value Reference Range Comments POC-GLUCOSE METER (BEAKER) 100 mg/dL 70-110 TESTED AT [address] (test ktub=9529) [place] [address] POCT-GLUCOSE [id number] 01:48:00 Test Item Value Reference Range Comments POC-GLUCOSE METER (BEAKER) 186 mg/dL 70-110 TESTED AT [address] (test ulwe=3746) [place] [address] BLOOD [id number] 00:00:00 Test Item Value Reference Range Comments CULTURE (BEAKER) (test qdcj=5177) No growth in 5 days POCT-GLUCOSE [id number] 21:54:00 Test Item Value Reference Range Comments POC-GLUCOSE METER (BEAKER) 232 mg/dL 70-110 TESTED AT [address] (test cdlc=8629) [place] [address] POCT-GLUCOSE [id number] 18:20:00 Test Item Value Reference Range Comments POC-GLUCOSE METER (BEAKER) 223 mg/dL 70-110 TESTED AT [address] (test bjhy=1213) [place] [address] POCT-GLUCOSE [id number] 10:25:00 Test Item Value Reference Range Comments POC-GLUCOSE METER (BEAKER) 230 mg/dL 70-110 TESTED AT [address] (test tfyo=8783) [place] [address] BASIC METABOLIC [id number] 08:57:00 Test Item Value Reference Range Comments SODIUM (BEAKER) (test 142 meq/L 136-145 mqpz=880) POTASSIUM (BEAKER) (test 4.0 meq/L 3.5-5.1 hqnn=709) CHLORIDE (BEAKER) (test 99 meq/L 98-107 obvu=166) CO2 (BEAKER) (test 39 meq/L 22-29 hewu=213) BLOOD UREA NITROGEN 18 mg/dL 7-21 (BEAKER) (test lguu=029) CREATININE (BEAKER) (test 0.60 mg/dL 0.57-1.25 vlyb=917) GLUCOSE RANDOM (BEAKER) 56 mg/dL 70-105 (test ffho=966) CALCIUM (BEAKER) (test 8.2 mg/dL 8.4-10.2 hmqn=736) EGFR (BEAKER) (test 146 mL/min/1.73 sq m ESTIMATED GFR IS NOT nqht=5130) ACCURATE CREATININE CLEARANCE IN PREDICTING GLOMERULAR FILTRATION RATE. ESTIMATED GFR IS NOT APPLICABLE FOR DIALYSIS PATIENTS. POCT-GLUCOSE [id number] 08:43:00 Test Item Value Reference Range Comments POC-GLUCOSE METER (BEAKER) 68 mg/dL 70-110 TESTED AT [address] (test wwlo=6747) [facility] [address] POCT-GLUCOSE [id number] 01:17:00 Test Item Value Reference Range Comments POC-GLUCOSE METER (BEAKER) 160 mg/dL 70-110 TESTED AT [address] (test scrz=4047) [place] [id number] POCT-GLUCOSE [id number] 19:47:00 Test Item Value Reference Range Comments POC-GLUCOSE METER (BEAKER) 193 mg/dL 70-110 TESTED AT [address] (test dxbr=1092) [place] [id number] POCT-GLUCOSE [id number] 15:44:00 Test Item Value Reference Range Comments POC-GLUCOSE METER (BEAKER) 80 mg/dL 70-110 TESTED AT [address] (test xwtt=7689) [place] [id number] POCT-GLUCOSE [id number] 14:11:00 Test Item Value Reference Range Comments POC-GLUCOSE METER (BEAKER) 78 mg/dL 70-110 TESTED AT [address] (test dssx=3928) [place] [id number] POCT-GLUCOSE [id number] 12:59:00 Test Item Value Reference Range Comments POC-GLUCOSE METER (BEAKER) 57 mg/dL 70-110 Notified JORDON STAPLETON/TESTED AT [facility] (test yoni=8475) [address] [place], [place] [id number] POCT-GLUCOSE [id number] 12:21:00 Test Item Value Reference Range Comments POC-GLUCOSE METER (BEAKER) 67 mg/dL 70-110 Notified JORDON STAPLETON/TESTED AT [facility] (test jduq=4105) [address] [facility] [address] POCT-GLUCOSE [id number] 09:53:00 Test Item Value Reference Range Comments POC-GLUCOSE METER (BEAKER) 170 mg/dL 70-110 TESTED AT [facility] [address] [facility] (test gnoy=2300) [facility] [address] POCT-GLUCOSE [id number] 08:38:00 Test Item Value Reference Range Comments POC-GLUCOSE METER (BEAKER) 52 mg/dL 70-110 Notified JORDON STAPLETON/TESTED AT [facility] (test uoju=0264) [address] [facility] [address] BASIC METABOLIC [id number] 07:10:00 Test Item Value Reference Range Comments SODIUM (BEAKER) (test 140 meq/L 136-145 hhkf=422) POTASSIUM (BEAKER) (test 3.3 meq/L 3.5-5.1 agdh=253) CHLORIDE (BEAKER) (test 97 meq/L 98-107 hxcc=252) CO2 (BEAKER) (test 34 meq/L 22-29 rzee=294) BLOOD UREA NITROGEN 13 mg/dL 7-21 (BEAKER) (test sclb=850) CREATININE (BEAKER) (test 0.62 mg/dL 0.57-1.25 okgm=044) GLUCOSE RANDOM (BEAKER) 51 mg/dL 70-105 (test syuk=194) CALCIUM (BEAKER) (test 8.5 mg/dL 8.4-10.2 iyuu=309) EGFR (BEAKER) (test 141 mL/min/1.73 sq m ESTIMATED GFR IS NOT jrhv=0343) ACCURATE CREATININE CLEARANCE IN PREDICTING GLOMERULAR FILTRATION RATE. ESTIMATED GFR IS NOT APPLICABLE FOR DIALYSIS PATIENTS. PROTEIN, RANDOM [id number] 22:37:00 Test Item Value Reference Range Comments PROTEIN, URINE (BEAKER) (test ewxr=3276) 235 mg/dL 0-14 CREATININE, RANDOM [id number] 22:35:00 Test Item Value Reference Range Comments CREATININE URINE (BEAKER) (test smli=900) 84.6 mg/dL Reference Range: No NormalsPOCT-GLUCOSE [id number] 21:41:00 Test Item Value Reference Range Comments POC-GLUCOSE METER (BEAKER) 292 mg/dL 70-110 TESTED AT [address] (test ixsh=2706) [place] [address] POCT-GLUCOSE [id number] 17:51:00 Test Item Value Reference Range Comments POC-GLUCOSE METER (BEAKER) 241 mg/dL 70-110 TESTED AT [address] (test sexb=7604) [place] [address] POCT-GLUCOSE [id number] 12:32:00 Test Item Value Reference Range Comments POC-GLUCOSE METER (BEAKER) 123 mg/dL 70-110 TESTED AT [address] (test bwtf=0010) [place] [address] POCT-GLUCOSE [id number] 08:24:00 Test Item Value Reference Range Comments POC-GLUCOSE METER (BEAKER) 408 mg/dL 70-110 Notified JORDON STAPLETON/TESTED AT [facility] (test rsws=0670) [address] [place] [address] [id number] 07:32:00 Test Item Value Reference Range Comments BLOOD UREA NITROGEN (BEAKER) (test jqxi=588) 15 mg/dL 7- [id number] 07:32:00 Test Item Value Reference Range Comments CREATININE (BEAKER) (test 0.73 mg/dL 0.57-1.25 qwwy=339) EGFR (BEAKER) (test 117 mL/min/1.73 sq m ESTIMATED GFR IS NOT qlfg=6281) ACCURATE CREATININE CLEARANCE IN PREDICTING GLOMERULAR FILTRATION RATE. ESTIMATED GFR IS NOT APPLICABLE FOR DIALYSIS PATIENTS. POCT-GLUCOSE [id number] 21:43:00 Test Item Value Reference Range Comments POC-GLUCOSE METER (BEAKER) 192 mg/dL 70-110 TESTED AT [address] (test gaqd=0212) [place] [address] POCT-GLUCOSE [id number] 17:46:00 Test Item Value Reference Range Comments POC-GLUCOSE METER (BEAKER) 147 mg/dL 70-110 TESTED AT [address] (test tyiv=7017) [place] [address] POCT-GLUCOSE [id number] 12:38:00 Test Item Value Reference Range Comments POC-GLUCOSE METER (BEAKER) 203 mg/dL 70-110 TESTED AT [address] (test mbdv=1911) [place] [address] HEMOGLOBIN [id number] 11:18:00 Test Item Value Reference Range Comments HEMOGLOBIN A1C (BEAKER) (test muxh=857) 16.1 % 4.3-6.1 POCT-GLUCOSE [id number] 09:15:00 Test Item Value Reference Range Comments POC-GLUCOSE METER (BEAKER) 330 mg/dL 70-110 Notified JORDON STAPLETNO/TESTED AT [facility] (test ajnj=9711) [address] [place] [address] [id number] 07:34:00 Test Item Value Reference Range Comments CREATININE (BEAKER) (test 0.83 mg/dL 0.57-1.25 Specimen slightly gcfv=068) hemolyzed EGFR (BEAKER) (test 101 mL/min/1.73 sq m ESTIMATED GFR IS NOT vssf=7911) ACCURATE CREATININE CLEARANCE IN PREDICTING GLOMERULAR FILTRATION RATE. ESTIMATED GFR IS NOT APPLICABLE FOR DIALYSIS PATIENTS. [id number] 07:34:00 Test Item Value Reference Range Comments BLOOD UREA NITROGEN (BEAKER) (test ktip=524) 15 mg/dL 7-21 POCT-GLUCOSE [id number] 01:59:00 Test Item Value Reference Range Comments POC-GLUCOSE METER (BEAKER) 78 mg/dL 70-110 TESTED AT [place] [address] [address] (test gsye=3252) [place] [address] BASIC METABOLIC [id number] 23:00:00 Test Item Value Reference Range Comments SODIUM (BEAKER) (test 135 meq/L 136-145 svus=986) POTASSIUM (BEAKER) (test 4.1 meq/L 3.5-5.1 hyxe=971) CHLORIDE (BEAKER) (test 98 meq/L 98-107 ylmd=028) CO2 (BEAKER) (test 26 meq/L 22-29 zrip=768) BLOOD UREA NITROGEN 16 mg/dL 7-21 (BEAKER) (test rklr=521) CREATININE (BEAKER) (test 1.27 mg/dL 0.57-1.25 fioe=468) GLUCOSE RANDOM (BEAKER) 503 mg/dL 70-105 (test eprk=441) CALCIUM (BEAKER) (test 8.1 mg/dL 8.4-10.2 yxgu=787) EGFR (BEAKER) (test 62 mL/min/1.73 sq m ESTIMATED GFR IS NOT oddg=3394) ACCURATE CREATININE CLEARANCE IN PREDICTING GLOMERULAR FILTRATION RATE. ESTIMATED GFR IS NOT APPLICABLE FOR DIALYSIS PATIENTS. POCT-GLUCOSE [id number] 21:22:00 Test Item Value Reference Range Comments POC-GLUCOSE METER (BEAKER) > mg/dL 70-110 OUTSIDE MEASURING RANGENotified RN (test lsxb=2371) MD/TESTED AT [facility] [address] [facility] [address] RESPIRATORY PANEL [id number] 18:44:00 Test Item Value Reference Range Comments HUMAN METAPNEUMOVIRUS (BEAKER) (test Not detected Not detected, Equivocal jujh=1015) RHINOVIRUS (BEAKER) (test ofoc=4442) Not detected Not detected, Equivocal INFLUENZA A (BEAKER) (test kttk=3821) Not detected Not detected, Equivocal INFLUENZA A (NO SUBTYPE) (test Not detected, Equivocal kxce=8773) INFLUENZA A SUBTYPE H1 (BEAKER) (test Not detected, Equivocal eguo=0405) INFLUENZA A SUBTYPE H3 (BEAKER) (test Not detected, Equivocal kipk=8777) INFLUENZA A SUBTYPE H1-2009 (BEAKER) Not detected, Equivocal (test rhme=3900) INFLUENZA B (BEAKER) (test qbjq=1076) Not detected Not detected, Equivocal RESPIRATORY SYNCYTIAL VIRUS (BEAKER) Not detected Not detected, Equivocal (test qkyu=2404) PARAINFLUENZA VIRUS 1 (BEAKER) (test Not detected Not detected, Equivocal xpbs=6418) PARAINFLUENZA VIRUS 2 (BEAKER) (test Not detected Not detected, Equivocal pmel=2210) PARAINFLUENZA VIRUS 3 (BEAKER) (test Not detected Not detected, Equivocal odoe=5861) PARAINFLUENZA VIRUS 4 (BEAKER) (test Not detected Not detected, Equivocal zcqy=5543) ADENOVIRUS (BEAKER) (test ntvn=8219) Not detected Not detected, Equivocal CORONAVIRUS 229E (BEAKER) (test Not detected Not detected, Equivocal ybdd=1443) CORONAVIRUS HKU1 (BEAKER) (test Not detected Not detected, Equivocal sbqm=0373) CORONAVIRUS NL63 (BEAKER) (test Not detected Not detected, Equivocal biks=5963) CORONAVIRUS OC43 (BEAKER) (test Not detected Not detected, Equivocal usdm=5908) BORDETELLA PERTUSSIS (BEAKER) (test Not detected Not detected, Equivocal ouwg=3423) CHLAMYDOPHILA PNEUMONIAE (BEAKER) (test Not detected Not detected, Equivocal bzed=8990) MYCOPLASMA PNEUMONIAE (BEAKER) (test Not detected Not detected, Equivocal swvk=1160) Other viruses and bacteria not targeted by this PCR panel cannot be excluded; therefore clinical correlation and follow up of serology, culture results, and other molecular studies is required. The results are not intended to be used as the sole means for clinical diagnosis or patient management decisions. This sample was tested at the [facility] using the AscenergyArray Respiratory Panel. It is FDA cleared and has been verified and approved by the [facility] for clinical use on nasal swab specimens. It is not FDA-cleared for use on bronchial wash/lavage samples. However, for this sample type, validation was performed and test characteristics were determined and approved, by [facility] for clinical use under the Clinical Laboratory Improvement Amendments (CLIA) of 1988 requirements. Therefore, FDA clearance isnot required. This laboratory is CLIA-certified and [employer] ([employer])-accredited to perform high complexity testing.POCT-GLUCOSE [id number] 18:36:00 Test Item Value Reference Range Comments POC-GLUCOSE METER (BEAKER) > mg/dL 70-110 OUTSIDE MEASURING RANGETESTED AT (test hein=1171) [place] [address] SPIN/CONCENTRATION [id number] 12:46:00 Test Item Value Reference Range Comments CONCENTRATION CHARGED (BEAKER) (test wpsr=0576) Done POCT-GLUCOSE [id number] 12:21:00 Test Item Value Reference Range Comments POC-GLUCOSE METER (BEAKER) 286 mg/dL 70-110 TESTED AT [address] (test ebpy=8731) [place] [address] POCT-GLUCOSE [id number] 08:25:00 Test Item Value Reference Range Comments POC-GLUCOSE METER (BEAKER) 295 mg/dL 70-110 TESTED AT [address] (test qazs=8411) [place] [address] [id number] 07:37:00 Test Item Value Reference Range Comments BLOOD UREA NITROGEN (BEAKER) (test febt=922) 5 mg/dL 7-21 [id number] 07:37:00 Test Item Value Reference Range Comments CREATININE (BEAKER) (test 0.64 mg/dL 0.57-1.25 Specimen slightly xvxv=045) hemolyzed EGFR (BEAKER) (test 136 mL/min/1.73 sq m ESTIMATED GFR IS NOT espn=7448) ACCURATE CREATININE CLEARANCE IN PREDICTING GLOMERULAR FILTRATION RATE. ESTIMATED GFR IS NOT APPLICABLE FOR DIALYSIS PATIENTS. POCT-GLUCOSE [id number] 06:33:00 Test Item Value Reference Range Comments POC-GLUCOSE METER (BEAKER) 44 mg/dL 70-110 Notified JORDON STAPLETON/TESTED AT [facility] (test vsei=9019) [address] [facility] [address] POCT-GLUCOSE [id number] 03:10:00 Test Item Value Reference Range Comments POC-GLUCOSE METER (BEAKER) 406 mg/dL 70-110 Notified JORDON STAPLETON/TESTED AT [facility] (test agcf=8051) [address] [facility] [address] RAD, CHEST, 2 [id number] 22:01:00Reason for exam:->COUGHReason for exam: ->SHORTNESS OF [...] MDReport Verified Date/Time: 08/15/2018 22:01:46 Reading Location: [facility] Mammo Reading Room Electronically signed by: LG VALDEZ M.D. on 10:01 PMPREGNANCY SCREEN, [id number] 21:12:00 Test Item Value Reference Range Comments TEST URINE (BEAKER) (test elql=636) Negative COMPREHENSIVE METABOLIC [id number] 17:43:00 Test Item Value Reference Range Comments TOTAL PROTEIN (BEAKER) 7.0 gm/dL 6.0-8.3 (test zzfx=864) ALBUMIN (BEAKER) (test 2.5 g/dL 3.5-5.0 dydr=3730) ALKALINE PHOSPHATASE 162 U/L 40-150 (BEAKER) (test ovez=433) BILIRUBIN TOTAL (BEAKER) 0.2 mg/dL 0.2-1.2 (test basw=866) SODIUM (BEAKER) (test 141 meq/L 136-145 qwvb=928) POTASSIUM (BEAKER) (test 4.0 meq/L 3.5-5.1 dlin=005) CHLORIDE (BEAKER) (test 102 meq/L 98-107 sklr=321) CO2 (BEAKER) (test 30 meq/L 22-29 lpma=800) BLOOD UREA NITROGEN 5 mg/dL 7-21 (BEAKER) (test jioj=903) CREATININE (BEAKER) (test 0.69 mg/dL 0.57-1.25 bgjy=598) GLUCOSE RANDOM (BEAKER) 321 mg/dL 70-105 (test vzoh=482) CALCIUM (BEAKER) (test 9.2 mg/dL 8.4-10.2 sofi=859) AST (SGOT) (BEAKER) (test 12 U/L 5-34 rtuc=542) ALT (SGPT) (BEAKER) (test 8 U/L 6-55 dauh=328) EGFR (BEAKER) (test 125 mL/min/1.73 sq ESTIMATED GFR IS NOT ftrt=5180) m ACCURATE CREATININE CLEARANCE IN PREDICTING GLOMERULAR FILTRATION RATE. ESTIMATED GFR IS NOT APPLICABLE FOR DIALYSIS PATIENTS. POCT-LACTIC ACID, [id number] 17:20:00 Test Item Value Reference Range Comments POC-LACTIC ACID, VENOUS 1.4 mmol/L 0.9-1.7 TESTED AT [facility] [address] [facility] (BEAKER) (test ajqx=6846) [place] [address] CBC W/PLT COUNT & AUTO [id number] 17:20:00 Test Item Value Reference Range Comments WHITE BLOOD CELL COUNT (BEAKER) (test cllt=278) 8.5 K/ L 3.5-10.5 RED BLOOD CELL COUNT (BEAKER) (test zwuy=120) 4.40 M/ L 3.93-5.22 HEMOGLOBIN (BEAKER) (test kctu=798) 11.3 GM/DL 11.2-15.7 HEMATOCRIT (BEAKER) (test yqbn=572) 37.6 % 34.1-44.9 MEAN CORPUSCULAR VOLUME (BEAKER) (test lrrm=053) 85.5 fL 79.4-94.8 MEAN CORPUSCULAR HEMOGLOBIN (BEAKER) (test 25.7 pg 25.6-32.2 juwx=693) MEAN CORPUSCULAR HEMOGLOBIN CONC (BEAKER) (test 30.1 GM/DL 32.2-35.5 vijs=813) RED CELL DISTRIBUTION WIDTH (BEAKER) (test 15.1 % 11.7-14.4 lycm=659) PLATELET COUNT (BEAKER) (test pout=415) 391 K/CU MM 150-450 MEAN PLATELET VOLUME (BEAKER) (test geve=553) 10.6 fL 9.4-12.3 NUCLEATED RED BLOOD CELLS (BEAKER) (test 0 /100 WBC 0-0 xyij=181) NEUTROPHILS RELATIVE PERCENT (BEAKER) (test 69 % qjra=968) LYMPHOCYTES RELATIVE PERCENT (BEAKER) (test 19 % jnig=076) MONOCYTES RELATIVE PERCENT (BEAKER) (test 7 % akpt=035) EOSINOPHILS RELATIVE PERCENT (BEAKER) (test 5 % pbth=082) BASOPHILS RELATIVE PERCENT (BEAKER) (test 1 % tred=683) NEUTROPHILS ABSOLUTE COUNT (BEAKER) (test 5.83 K/ L 1.56-6.13 cntu=581) LYMPHOCYTES ABSOLUTE COUNT (BEAKER) (test 1.61 K/ L 1.18-3.74 egnl=268) MONOCYTES ABSOLUTE COUNT (BEAKER) (test 0.56 K/ L 0.24-0.36 xcyk=963) EOSINOPHILS ABSOLUTE COUNT (BEAKER) (test 0.44 K/ L 0.04-0.36 vedq=590) BASOPHILS ABSOLUTE COUNT (BEAKER) (test 0.05 K/ L 0.01-0.08 rhzu=593) IMMATURE GRANULOCYTES-RELATIVE PERCENT (BEAKER) 0 % 0-1 (test bvki=8104) AFB CULTURE + [id number] 13:38:00 Test Item Value Reference Range Comments CULTURE (BEAKER) (test No acid-fast bacilli isolated vvla=2040) in 42 days AFB SMEAR (BEAKER) (test No acid fast bacilli seen pptn=474) POCT-GLUCOSE [id number] 08:03:00 Test Item Value Reference Range Comments POC-GLUCOSE METER (BEAKER) 169 mg/dL 70-110 TESTED AT [address] (test mccm=2349) [place] [id number] BUN AND [id number] 06:31:00 Test Item Value Reference Range Comments BLOOD UREA NITROGEN 25 mg/dL 7-21 (BEAKER) (test biuz=644) CREATININE (BEAKER) (test 0.70 mg/dL 0.57-1.25 twtk=922) EGFR (BEAKER) (test 124 mL/min/1.73 sq m ESTIMATED GFR IS NOT kvid=8766) ACCURATE CREATININE CLEARANCE IN PREDICTING GLOMERULAR FILTRATION RATE. ESTIMATED GFR IS NOT APPLICABLE FOR DIALYSIS PATIENTS. POCT-GLUCOSE [id number] 23:55:00 Test Item Value Reference Range Comments POC-GLUCOSE METER (BEAKER) 179 mg/dL 70-110 TESTED AT [address] (test bpqu=7689) [place] [address] POCT-GLUCOSE [id number] 17:30:00 Test Item Value Reference Range Comments POC-GLUCOSE METER (BEAKER) 216 mg/dL 70-110 TESTED AT [address] (test xfmu=5385) [place] [address] POCT-GLUCOSE [id number] 11:49:00 Test Item Value Reference Range Comments POC-GLUCOSE METER (BEAKER) 97 mg/dL 70-110 TESTED AT [address] (test oxjt=6096) [place] [address] POCT-GLUCOSE [id number] 08:09:00 Test Item Value Reference Range Comments POC-GLUCOSE METER (BEAKER) 72 mg/dL 70-110 TESTED AT [address] (test xjzc=7758) [place] [address] BUN AND [id number] 08:08:00 Test Item Value Reference Range Comments BLOOD UREA NITROGEN 23 mg/dL 7-21 (BEAKER) (test czxo=615) CREATININE (BEAKER) (test 0.62 mg/dL 0.57-1.25 buwe=079) EGFR (BEAKER) (test 142 mL/min/1.73 sq m ESTIMATED GFR IS NOT lyvf=3928) ACCURATE CREATININE CLEARANCE IN PREDICTING GLOMERULAR FILTRATION RATE. ESTIMATED GFR IS NOT APPLICABLE FOR DIALYSIS PATIENTS. POCT-GLUCOSE [id number] 21:04:00 Test Item Value Reference Range Comments POC-GLUCOSE METER (BEAKER) 143 mg/dL 70-110 TESTED AT [address] (test fzpc=5262) [place] [address] POCT-GLUCOSE [id number] 17:36:00 Test Item Value Reference Range Comments POC-GLUCOSE METER (BEAKER) 195 mg/dL 70-110 TESTED AT [address] (test uuzh=3653) [place] [address] POCT-GLUCOSE [id number] 12:58:00 Test Item Value Reference Range Comments POC-GLUCOSE METER (BEAKER) 73 mg/dL 70-110 TESTED AT [address] (test xydr=6317) [place] [address] POCT-GLUCOSE [id number] 08:07:00 Test Item Value Reference Range Comments POC-GLUCOSE METER (BEAKER) 320 mg/dL 70-110 Notified RN or MD Patient (test funb=0065) refused repeat test/TESTED AT [place] [address] BUN AND [id number] 07:07:00 Test Item Value Reference Range Comments BLOOD UREA NITROGEN 25 mg/dL 7-21 (BEAKER) (test vjrs=999) CREATININE (BEAKER) (test 0.92 mg/dL 0.57-1.25 Specimen slightly kihe=844) hemolyzed EGFR (BEAKER) (test 90 mL/min/1.73 sq m ESTIMATED GFR IS NOT fbuy=2655) ACCURATE CREATININE CLEARANCE IN PREDICTING GLOMERULAR FILTRATION RATE. ESTIMATED GFR IS NOT APPLICABLE FOR DIALYSIS PATIENTS. CBC W/PLT COUNT & AUTO [id number] 06:10:00 Test Item Value Reference Range Comments WHITE BLOOD CELL COUNT (BEAKER) (test bmjb=786) 14.1 K/ L 3.5-10.5 RED BLOOD CELL COUNT (BEAKER) (test nzwj=015) 3.56 M/ L 3.93-5.22 HEMOGLOBIN (BEAKER) (test qikr=146) 9.4 GM/DL 11.2-15.7 HEMATOCRIT (BEAKER) (test juei=707) 32.4 % 34.1-44.9 MEAN CORPUSCULAR VOLUME (BEAKER) (test quzv=371) 91.0 fL 79.4-94.8 MEAN CORPUSCULAR HEMOGLOBIN (BEAKER) (test 26.4 pg 25.6-32.2 jbmw=744) MEAN CORPUSCULAR HEMOGLOBIN CONC (BEAKER) (test 29.0 GM/DL 32.2-35.5 ornq=843) RED CELL DISTRIBUTION WIDTH (BEAKER) (test 19.9 % 11.7-14.4 ooua=731) PLATELET COUNT (BEAKER) (test stxe=720) 348 K/CU MM 150-450 MEAN PLATELET VOLUME (BEAKER) (test enbf=444) 10.8 fL 9.4-12.3 NUCLEATED RED BLOOD CELLS (BEAKER) (test 0 /100 WBC 0-0 yxou=896) NEUTROPHILS RELATIVE PERCENT (BEAKER) (test 81 % fsui=227) LYMPHOCYTES RELATIVE PERCENT (BEAKER) (test 10 % rwql=073) MONOCYTES RELATIVE PERCENT (BEAKER) (test 8 % nzts=352) EOSINOPHILS RELATIVE PERCENT (BEAKER) (test 0 % fdzu=587) BASOPHILS RELATIVE PERCENT (BEAKER) (test 0 % osve=925) NEUTROPHILS ABSOLUTE COUNT (BEAKER) (test 11.47 K/ L 1.56-6.13 qsgz=018) LYMPHOCYTES ABSOLUTE COUNT (BEAKER) (test 1.37 K/ L 1.18-3.74 mivu=765) MONOCYTES ABSOLUTE COUNT (BEAKER) (test 1.08 K/ L 0.24-0.36 tfyj=712) EOSINOPHILS ABSOLUTE COUNT (BEAKER) (test 0.03 K/ L 0.04-0.36 jqve=772) BASOPHILS ABSOLUTE COUNT (BEAKER) (test 0.02 K/ L 0.01-0.08 eabo=854) IMMATURE GRANULOCYTES-RELATIVE PERCENT (BEAKER) 1 % 0-1 (test hqrx=2610) POCT-GLUCOSE [id number] 22:03:00 Test Item Value Reference Range Comments POC-GLUCOSE METER (BEAKER) 96 mg/dL 70-110 TESTED AT [facility] [address] (test blhu=3533) [facility] [address] POCT-GLUCOSE [id number] 21:57:00 Test Item Value Reference Range Comments POC-GLUCOSE METER (BEAKER) 67 mg/dL 70-110 Notified JORDON STAPLETON/TESTED AT [facility] (test ueiq=6263) [address] [facility] [address] POCT-GLUCOSE [id number] 17:48:00 Test Item Value Reference Range Comments POC-GLUCOSE METER (BEAKER) 210 mg/dL 70-110 TESTED AT [address] (test mvnk=6421) [facility] [address] POCT-GLUCOSE [id number] 12:42:00 Test Item Value Reference Range Comments POC-GLUCOSE METER (BEAKER) 193 mg/dL 70-110 TESTED AT [address] (test xfwl=6325) [facility] [address] POCT-GLUCOSE [id number] 08:38:00 Test Item Value Reference Range Comments POC-GLUCOSE METER (BEAKER) 139 mg/dL 70-110 TESTED AT [address] (test ybll=8490) [facility] [address] BASIC METABOLIC [id number] 06:31:00 Test Item Value Reference Range Comments SODIUM (BEAKER) (test 139 meq/L 136-145 vwhb=455) POTASSIUM (BEAKER) (test 4.4 meq/L 3.5-5.1 zepf=878) CHLORIDE (BEAKER) (test 102 meq/L 98-107 mamw=194) CO2 (BEAKER) (test 31 meq/L 22-29 tfyr=489) BLOOD UREA NITROGEN 19 mg/dL 7-21 (BEAKER) (test mrsy=571) CREATININE (BEAKER) (test 0.77 mg/dL 0.57-1.25 vbgp=663) GLUCOSE RANDOM (BEAKER) 264 mg/dL 70-105 (test xgkp=295) CALCIUM (BEAKER) (test 7.9 mg/dL 8.4-10.2 lonr=209) EGFR (BEAKER) (test 111 mL/min/1.73 sq m ESTIMATED GFR IS NOT zvka=8711) ACCURATE CREATININE CLEARANCE IN PREDICTING GLOMERULAR FILTRATION RATE. ESTIMATED GFR IS NOT APPLICABLE FOR DIALYSIS PATIENTS. BUN AND [id number] 06:30:00 Test Item Value Reference Range Comments BLOOD UREA NITROGEN 19 mg/dL 7-21 (BEAKER) (test gqkr=747) CREATININE (BEAKER) (test 0.77 mg/dL 0.57-1.25 ssnm=250) EGFR (BEAKER) (test 111 mL/min/1.73 sq m ESTIMATED GFR IS NOT rkhz=2083) ACCURATE CREATININE CLEARANCE IN PREDICTING GLOMERULAR FILTRATION RATE. ESTIMATED GFR IS NOT APPLICABLE FOR DIALYSIS PATIENTS. CBC W/PLT COUNT & AUTO [id number] 06:11:00 Test Item Value Reference Range Comments WHITE BLOOD CELL COUNT (BEAKER) (test zoex=337) 14.2 K/ L 3.5-10.5 RED BLOOD CELL COUNT (BEAKER) (test cpnm=395) 3.57 M/ L 3.93-5.22 HEMOGLOBIN (BEAKER) (test csdv=222) 9.4 GM/DL 11.2-15.7 HEMATOCRIT (BEAKER) (test waqn=131) 32.7 % 34.1-44.9 MEAN CORPUSCULAR VOLUME (BEAKER) (test wnhl=405) 91.6 fL 79.4-94.8 MEAN CORPUSCULAR HEMOGLOBIN (BEAKER) (test 26.3 pg 25.6-32.2 bufc=486) MEAN CORPUSCULAR HEMOGLOBIN CONC (BEAKER) (test 28.7 GM/DL 32.2-35.5 zdsa=130) RED CELL DISTRIBUTION WIDTH (BEAKER) (test 20.0 % 11.7-14.4 ckcs=752) PLATELET COUNT (BEAKER) (test ybdz=129) 352 K/CU MM 150-450 MEAN PLATELET VOLUME (BEAKER) (test scxq=388) 10.9 fL 9.4-12.3 NUCLEATED RED BLOOD CELLS (BEAKER) (test 0 /100 WBC 0-0 sxwp=172) NEUTROPHILS RELATIVE PERCENT (BEAKER) (test 84 % awni=083) LYMPHOCYTES RELATIVE PERCENT (BEAKER) (test 8 % yrcj=863) MONOCYTES RELATIVE PERCENT (BEAKER) (test 6 % yeac=440) EOSINOPHILS RELATIVE PERCENT (BEAKER) (test 0 % wzqq=665) BASOPHILS RELATIVE PERCENT (BEAKER) (test 0 % ohdc=335) NEUTROPHILS ABSOLUTE COUNT (BEAKER) (test 11.96 K/ L 1.56-6.13 yfke=298) LYMPHOCYTES ABSOLUTE COUNT (BEAKER) (test 1.20 K/ L 1.18-3.74 hcrr=673) MONOCYTES ABSOLUTE COUNT (BEAKER) (test 0.91 K/ L 0.24-0.36 xbrd=494) EOSINOPHILS ABSOLUTE COUNT (BEAKER) (test 0.01 K/ L 0.04-0.36 owmv=331) BASOPHILS ABSOLUTE COUNT (BEAKER) (test 0.02 K/ L 0.01-0.08 qkxx=494) IMMATURE GRANULOCYTES-RELATIVE PERCENT (AKER) 1 % 0-1 (test cecq=5130) POCT-GLUCOSE [id number] 21:38:00 Test Item Value Reference Range Comments POC-GLUCOSE METER (BEAKER) 266 mg/dL 70-110 TESTED AT [address] (test czur=9223) [place] [address] POCT-GLUCOSE [id number] 17:38:00 Test Item Value Reference Range Comments POC-GLUCOSE METER (BEAKER) 213 mg/dL 70-110 TESTED AT [address] (test mtiz=3833) [place] [address] POCT-GLUCOSE [id number] 13:23:00 Test Item Value Reference Range Comments POC-GLUCOSE METER (BEAKER) 272 mg/dL 70-110 TESTED AT [address] (test qqbx=4919) [place] [address] POCT-GLUCOSE [id number] 11:56:00 Test Item Value Reference Range Comments POC-GLUCOSE METER (BEAKER) 120 mg/dL 70-110 TESTED AT [address] (test yjbg=2277) [place] [address] POCT-GLUCOSE [id number] 08:20:00 Test Item Value Reference Range Comments POC-GLUCOSE METER (BEAKER) 88 mg/dL 70-110 TESTED AT [address] (test kwsw=5353) [place] [address] BUN AND [id number] 05:59:00 Test Item Value Reference Range Comments BLOOD UREA NITROGEN 30 mg/dL 7-21 (BEAKER) (test dbuv=585) CREATININE (BEAKER) (test 0.81 mg/dL 0.57-1.25 ekyk=883) EGFR ([facility]) (test 104 mL/min/1.73 sq m ESTIMATED GFR IS NOT alns=2154) ACCURATE CREATININE CLEARANCE IN PREDICTING GLOMERULAR FILTRATION RATE. ESTIMATED GFR IS NOT APPLICABLE FOR DIALYSIS PATIENTS. CBC W/PLT COUNT & AUTO [id number] 05:24:00 Test Item Value Reference Range Comments WHITE BLOOD CELL COUNT (BEAKER) (test rlyo=459) 18.1 K/ L 3.5-10.5 RED BLOOD CELL COUNT (BEAKER) (test inmd=500) 3.48 M/ L 3.93-5.22 HEMOGLOBIN (BEAKER) (test swkd=679) 9.2 GM/DL 11.2-15.7 HEMATOCRIT (BEAKER) (test ppnb=472) 31.2 % 34.1-44.9 MEAN CORPUSCULAR VOLUME (BEAKER) (test hdrr=810) 89.7 fL 79.4-94.8 MEAN CORPUSCULAR HEMOGLOBIN (BEAKER) (test 26.4 pg 25.6-32.2 xppi=742) MEAN CORPUSCULAR HEMOGLOBIN CONC (BEAKER) (test 29.5 GM/DL 32.2-35.5 ylxl=286) RED CELL DISTRIBUTION WIDTH (BEAKER) (test 20.0 % 11.7-14.4 muhh=735) PLATELET COUNT (BEAKER) (test ltpt=951) 361 K/CU MM 150-450 MEAN PLATELET VOLUME (BEAKER) (test mtke=922) 10.6 fL 9.4-12.3 NUCLEATED RED BLOOD CELLS (BEAKER) (test 0 /100 WBC 0-0 bhbc=178) NEUTROPHILS RELATIVE PERCENT (BEAKER) (test 85 % aqzz=323) LYMPHOCYTES RELATIVE PERCENT (BEAKER) (test 7 % bekl=090) MONOCYTES RELATIVE PERCENT (BEAKER) (test 7 % ysdr=323) EOSINOPHILS RELATIVE PERCENT (BEAKER) (test 0 % ufiq=408) BASOPHILS RELATIVE PERCENT (BEAKER) (test 0 % fvkq=353) NEUTROPHILS ABSOLUTE COUNT (BEAKER) (test 15.39 K/ L 1.56-6.13 gvss=142) LYMPHOCYTES ABSOLUTE COUNT (BEAKER) (test 1.26 K/ L 1.18-3.74 pugo=866) MONOCYTES ABSOLUTE COUNT (BEAKER) (test 1.18 K/ L 0.24-0.36 fvio=432) EOSINOPHILS ABSOLUTE COUNT (BEAKER) (test 0.03 K/ L 0.04-0.36 wcvm=372) BASOPHILS ABSOLUTE COUNT (BEAKER) (test 0.03 K/ L 0.01-0.08 nmbi=302) IMMATURE GRANULOCYTES-RELATIVE PERCENT (BEAKER) 1 % 0-1 (test wcqd=8042) POCT-GLUCOSE [id number] 20:50:00 Test Item Value Reference Range Comments POC-GLUCOSE METER (BEAKER) 260 mg/dL 70-110 TESTED AT [facility] [address] [facility] (test ejtk=6444) [facility] [address] POCT-GLUCOSE [id number] 17:30:00 Test Item Value Reference Range Comments POC-GLUCOSE METER (BEAKER) 208 mg/dL 70-110 TESTED AT [address] (test xuvg=9178) [facility] [address] POCT-GLUCOSE [id number] 12:51:00 Test Item Value Reference Range Comments POC-GLUCOSE METER (BEAKER) 125 mg/dL 70-110 TESTED AT [address] (test kkue=6399) [facility] [address] BASIC METABOLIC [id number] 12:22:00 Test Item Value Reference Range Comments SODIUM (BEAKER) (test 141 meq/L 136-145 vabh=100) POTASSIUM (BEAKER) (test 4.6 meq/L 3.5-5.1 nsoo=442) CHLORIDE (BEAKER) (test 99 meq/L 98-107 cfpe=889) CO2 (BEAKER) (test 35 meq/L 22-29 cmix=928) BLOOD UREA NITROGEN 24 mg/dL 7-21 (BEAKER) (test piiv=297) CREATININE (BEAKER) (test 0.65 mg/dL 0.57-1.25 pouu=349) GLUCOSE RANDOM (BEAKER) 57 mg/dL 70-105 (test dpkk=694) CALCIUM (BEAKER) (test 9.0 mg/dL 8.4-10.2 nizz=255) EGFR (BEAKER) (test 135 mL/min/1.73 sq m ESTIMATED GFR IS NOT lhxx=2095) ACCURATE CREATININE CLEARANCE IN PREDICTING GLOMERULAR FILTRATION RATE. ESTIMATED GFR IS NOT APPLICABLE FOR DIALYSIS PATIENTS. CBC W/PLT COUNT & AUTO [id number] 12:07:00 Test Item Value Reference Range Comments WHITE BLOOD CELL COUNT (BEAKER) (test hmzw=631) 20.6 K/ L 3.5-10.5 RED BLOOD CELL COUNT (BEAKER) (test tkcl=423) 3.69 M/ L 3.93-5.22 HEMOGLOBIN (BEAKER) (test wger=213) 9.8 GM/DL 11.2-15.7 HEMATOCRIT (BEAKER) (test vaxy=550) 33.5 % 34.1-44.9 MEAN CORPUSCULAR VOLUME (BEAKER) (test wtlp=997) 90.8 fL 79.4-94.8 MEAN CORPUSCULAR HEMOGLOBIN (BEAKER) (test 26.6 pg 25.6-32.2 pkkl=242) MEAN CORPUSCULAR HEMOGLOBIN CONC (BEAKER) (test 29.3 GM/DL 32.2-35.5 cmei=987) RED CELL DISTRIBUTION WIDTH (BEAKER) (test 20.1 % 11.7-14.4 crgv=269) PLATELET COUNT (BEAKER) (test pijw=591) 382 K/CU MM 150-450 MEAN PLATELET VOLUME (BEAKER) (test dhks=180) 10.4 fL 9.4-12.3 NUCLEATED RED BLOOD CELLS (BEAKER) (test 0 /100 WBC 0-0 cqhe=575) NEUTROPHILS RELATIVE PERCENT (BEAKER) (test 87 % gewy=193) LYMPHOCYTES RELATIVE PERCENT (BEAKER) (test 6 % vnju=781) MONOCYTES RELATIVE PERCENT (BEAKER) (test 4 % dzlv=519) EOSINOPHILS RELATIVE PERCENT (BEAKER) (test 1 % jdeg=278) BASOPHILS RELATIVE PERCENT (BEAKER) (test 0 % gycw=743) NEUTROPHILS ABSOLUTE COUNT (BEAKER) (test 18.01 K/ L 1.56-6.13 xfls=132) LYMPHOCYTES ABSOLUTE COUNT (BEAKER) (test 1.30 K/ L 1.18-3.74 obzo=209) MONOCYTES ABSOLUTE COUNT (BEAKER) (test 0.75 K/ L 0.24-0.36 mgsi=772) EOSINOPHILS ABSOLUTE COUNT (BEAKER) (test 0.29 K/ L 0.04-0.36 tuwz=751) BASOPHILS ABSOLUTE COUNT (BEAKER) (test 0.04 K/ L 0.01-0.08 zkes=045) IMMATURE GRANULOCYTES-RELATIVE PERCENT (BEAKER) 1 % 0-1 (test btaj=4793) POCT-GLUCOSE [id number] 11:57:00 Test Item Value Reference Range Comments POC-GLUCOSE METER (BEAKER) 59 mg/dL 70-110 Will Repeat Test/TESTED AT (test mxrf=9763) [facility] [address] [facility] [address] RAD, CHEST, 1 VIEW, NON [id number] 11:31:00Reason for exam:->interval change in upper lobe [...] of unclear clinical significance. Signed: Tripp Russell Verified Date/Time: 06/26/2018 11:31: 01 Reading Location: [address] Ortho Consult Reading Room RAD, ABDOMEN/ KUB, 1 VIEW [id number] 11:31:00Reason for exam:->assess for stool burdenShould this [...] of unclear clinical significance. Signed: Tripp Russell Verified Date/Time: 06/26/2018 11:31:01 Reading Location: [address] Ortho Consult Reading Room POCT-GLUCOSE [id number] 08:23:00 Test Item Value Reference Range Comments POC-GLUCOSE METER (BEAKER) 109 mg/dL 70-110 TESTED AT [address] (test jyhl=1501) [facility] [address] LACTIC ACID, VENOUS, WHOLE [id number] 06:39:00 Test Item Value Reference Range Comments LACTATE BLOOD VENOUS (2) (BEAKER) (test 1.1 mmol/L 0.5-2.2 uetx=1205) Effective 02/26/2016: Units/Reference Range ChangeNew: 0.5-2.2 mmol/L Previous: 5 -20 mg/dLBUN AND [id number] 06:08:00 Test Item Value Reference Range Comments BLOOD UREA NITROGEN 25 mg/dL 7-21 (BEAKER) (test zvld=379) CREATININE (BEAKER) (test 0.70 mg/dL 0.57-1.25 fwfx=867) EGFR (AKER) (test 124 mL/min/1.73 sq m ESTIMATED GFR IS NOT fviq=5317) ACCURATE CREATININE CLEARANCE IN PREDICTING GLOMERULAR FILTRATION RATE. ESTIMATED GFR IS NOT APPLICABLE FOR DIALYSIS PATIENTS. POCT-GLUCOSE [id number] 05:27:00 Test Item Value Reference Range Comments POC-GLUCOSE METER (BEAKER) 120 mg/dL 70-110 TESTED AT [address] (test oaro=0399) [facility] [address] POCT-GLUCOSE [id number] 21:14:00 Test Item Value Reference Range Comments POC-GLUCOSE METER (BEAKER) 216 mg/dL 70-110 TESTED AT [address] (test tgwm=5674) [place] [id number] POCT-GLUCOSE [id number] 17:08:00 Test Item Value Reference Range Comments POC-GLUCOSE METER (BEAKER) 197 mg/dL 70-110 TESTED AT [address] (test bdml=3136) [place] [id number] POCT-GLUCOSE [id number] 11:51:00 Test Item Value Reference Range Comments POC-GLUCOSE METER (BEAKER) 160 mg/dL 70-110 TESTED AT [address] (test jsgg=9120) [place] [address] POCT-GLUCOSE [id number] 08:13:00 Test Item Value Reference Range Comments POC-GLUCOSE METER (BEAKER) 376 mg/dL 70-110 Notified JORDON STAPLETON/TESTED AT [facility] (test potz=9941) [address] [place] [address] BUN AND [id number] 07:14:00 Test Item Value Reference Range Comments BLOOD UREA NITROGEN 28 mg/dL 7-21 (BEAKER) (test bldh=426) CREATININE (BEAKER) (test 0.76 mg/dL 0.57-1.25 cung=797) EGFR (BEAKER) (test 112 mL/min/1.73 sq m ESTIMATED GFR IS NOT pmzb=3786) ACCURATE CREATININE CLEARANCE IN PREDICTING GLOMERULAR FILTRATION RATE. ESTIMATED GFR IS NOT APPLICABLE FOR DIALYSIS PATIENTS. POCT-GLUCOSE [id number] 22:17:00 Test Item Value Reference Range Comments POC-GLUCOSE METER (BEAKER) 163 mg/dL 70-110 TESTED AT [address] (test adft=4571) [place] [address] POCT-GLUCOSE [id number] 16:46:00 Test Item Value Reference Range Comments POC-GLUCOSE METER (BEAKER) 301 mg/dL 70-110 TESTED AT [address] (test fiau=9786) [place] [address] POCT-GLUCOSE [id number] 12:12:00 Test Item Value Reference Range Comments POC-GLUCOSE METER (BEAKER) 400 mg/dL 70-110 Notified JORDON STAPLETON/TESTED AT [facility] (test amkc=9171) [address] [place], [place] [address] POCT-GLUCOSE [id number] 07:42:00 Test Item Value Reference Range Comments POC-GLUCOSE METER (BEAKER) 65 mg/dL 70-110 Notified JORDON STAPLETON/TESTED AT [facility] (test jgvb=9362) [address] [place] [address] BUN AND [id number] 06:26:00 Test Item Value Reference Range Comments BLOOD UREA NITROGEN 27 mg/dL 7-21 (BEAKER) (test wvon=806) CREATININE (BEAKER) (test 0.70 mg/dL 0.57-1.25 xsss=955) EGFR (BEAKER) (test 124 mL/min/1.73 sq m ESTIMATED GFR IS NOT ygss=1758) ACCURATE CREATININE CLEARANCE IN PREDICTING GLOMERULAR FILTRATION RATE. ESTIMATED GFR IS NOT APPLICABLE FOR DIALYSIS PATIENTS. CF RESPIRATORY [id number] 02:48:00 Test Item Value Reference Range Comments CULTURE (BEAKER) (test PSEUDOMONAS 3+ Pseudomonas eich=8210) AERUGINOSA aeruginosa (MUCOID-PHENOTYPE) (Mucoid-phenotype) Amikacin (test code=1) [...] >4 CULTURE (BEAKER) (test PSEUDOMONAS 3+ Pseudomonas vkeb=1268) AERUGINOSA aeruginosa (MUCOID-PHENOTYPE) (Mucoid-phenotype)of a second type [...] or >4 4+ Normal respiratory derick presentPOCT-GLUCOSE [id number] 21:45:00 Test Item Value Reference Range Comments POC-GLUCOSE METER (BEAKER) 153 mg/dL 70-110 TESTED AT [address] (test fzvs=1313) [place] [id number] POCT-GLUCOSE [id number] 17:25:00 Test Item Value Reference Range Comments POC-GLUCOSE METER (BEAKER) 237 mg/dL 70-110 TESTED AT [address] (test wrji=4060) [place] [address] POCT-GLUCOSE [id number] 11:39:00 Test Item Value Reference Range Comments POC-GLUCOSE METER (BEAKER) 126 mg/dL 70-110 TESTED AT [address] (test pzxt=3292) [place] [address] BUN AND [id number] 07:39:00 Test Item Value Reference Range Comments BLOOD UREA NITROGEN 33 mg/dL 7-21 (BEAKER) (test yqbb=537) CREATININE (BEAKER) (test 0.84 mg/dL 0.57-1.25 gsgf=877) EGFR (BEAKER) (test 100 mL/min/1.73 sq m ESTIMATED GFR IS NOT kayt=1624) ACCURATE CREATININE CLEARANCE IN PREDICTING GLOMERULAR FILTRATION RATE. ESTIMATED GFR IS NOT APPLICABLE FOR DIALYSIS PATIENTS. POCT-GLUCOSE [id number] 07:30:00 Test Item Value Reference Range Comments POC-GLUCOSE METER (BEAKER) 424 mg/dL 70-110 Notified JORDON STAPLETON/TESTED AT [facility] (test wfsu=0338) [address] [place], [place] [address] POCT-GLUCOSE [id number] 21:36:00 Test Item Value Reference Range Comments POC-GLUCOSE METER (BEAKER) 241 mg/dL 70-110 TESTED AT [address] (test mkxx=0202) [place] [address] POCT-GLUCOSE [id number] 17:03:00 Test Item Value Reference Range Comments POC-GLUCOSE METER (BEAKER) 405 mg/dL 70-110 Baby tested Mother ID (test dqyk=2161) used/TESTED AT [place] [address] POCT-GLUCOSE [id number] 14:17:00 Test Item Value Reference Range Comments POC-GLUCOSE METER (BEAKER) 81 mg/dL 70-110 TESTED AT [address] (test ylfc=8063) [place] [address] HEMOGLOBIN [id number] 09:17:00 Test Item Value Reference Range Comments HEMOGLOBIN A1C (BEAKER) (test vxvr=454) 13.9 % 4.3-6.1 POCT-GLUCOSE [id number] 07:56:00 Test Item Value Reference Range Comments POC-GLUCOSE METER (BEAKER) 226 mg/dL 70-110 TESTED AT [address] (test dxos=1099) [place] [address] BUN AND [id number] 06:35:00 Test Item Value Reference Range Comments BLOOD UREA NITROGEN 25 mg/dL 7-21 (BEAKER) (test foxc=459) CREATININE (BEAKER) (test 0.74 mg/dL 0.57-1.25 sslc=405) EGFR (BEAKER) (test 116 mL/min/1.73 sq m ESTIMATED GFR IS NOT gjdh=6744) ACCURATE CREATININE CLEARANCE IN PREDICTING GLOMERULAR FILTRATION RATE. ESTIMATED GFR IS NOT APPLICABLE FOR DIALYSIS PATIENTS. POCT-GLUCOSE [id number] 21:56:00 Test Item Value Reference Range Comments POC-GLUCOSE METER (BEAKER) 347 mg/dL 70-110 Notified JORDON STAPLETON/TESTED AT [facility] (test xjcu=7905) [address] [place] [address] POCT-GLUCOSE [id number] 17:05:00 Test Item Value Reference Range Comments POC-GLUCOSE METER (BEAKER) 163 mg/dL 70-110 TESTED AT [address] (test rcrc=9045) [place] [address] POCT-GLUCOSE [id number] 12:36:00 Test Item Value Reference Range Comments POC-GLUCOSE METER (BEAKER) 124 mg/dL 70-110 TESTED AT [address] (test neym=7449) [place] [address] POCT-GLUCOSE [id number] 07:25:00 Test Item Value Reference Range Comments POC-GLUCOSE METER (BEAKER) 161 mg/dL 70-110 TESTED AT [address] (test idxq=3246) [place] [address] BUN AND [id number] 03:23:00 Test Item Value Reference Range Comments BLOOD UREA NITROGEN 23 mg/dL 7-21 (BEAKER) (test gqkf=568) CREATININE (BEAKER) (test 0.75 mg/dL 0.57-1.25 ytib=921) EGFR (BEAKER) (test 114 mL/min/1.73 sq m ESTIMATED GFR IS NOT mcpf=5917) ACCURATE CREATININE CLEARANCE IN PREDICTING GLOMERULAR FILTRATION RATE. ESTIMATED GFR IS NOT APPLICABLE FOR DIALYSIS PATIENTS. POCT-GLUCOSE [id number] 21:35:00 Test Item Value Reference Range Comments POC-GLUCOSE METER (BEAKER) 126 mg/dL 70-110 TESTED AT [address] (test essp=1965) [place] [address] POCT-GLUCOSE [id number] 17:43:00 Test Item Value Reference Range Comments POC-GLUCOSE METER (BEAKER) 229 mg/dL 70-110 TESTED AT [address] (test oast=0717) [place] [address] POCT-GLUCOSE [id number] 13:02:00 Test Item Value Reference Range Comments POC-GLUCOSE METER (BEAKER) 155 mg/dL 70-110 TESTED AT [address] (test oiny=3147) [place] [address] POCT-GLUCOSE [id number] 09:12:00 Test Item Value Reference Range Comments POC-GLUCOSE METER (BEAKER) 252 mg/dL 70-110 TESTED AT [address] (test mtsj=2632) [place] [address] POCT-GLUCOSE [id number] 08:38:00 Test Item Value Reference Range Comments POC-GLUCOSE METER (BEAKER) 58 mg/dL 70-110 Notified JORDON STAPLETON/TESTED AT [facility] (test jmwr=9719) [address] [place] [address] BLOOD [id number] 06:00:00 Test Item Value Reference Range Comments CULTURE (BEAKER) (test ecxo=7275) No growth in 5 days BLOOD [id number] 06:00:00 Test Item Value Reference Range Comments CULTURE (BEAKER) (test weas=2769) No growth in 5 days POCT-GLUCOSE [id number] 21:09:00 Test Item Value Reference Range Comments POC-GLUCOSE METER (BEAKER) 365 mg/dL 70-110 Notified JORDON STAPLETON/TESTED AT [facility] (test tctm=0553) [address] [place] [address] POCT-GLUCOSE [id number] 18:57:00 Test Item Value Reference Range Comments POC-GLUCOSE METER (BEAKER) 395 mg/dL 70-110 TESTED AT [address] (test folk=8672) [place] [address] POCT-GLUCOSE [id number] 14:19:00 Test Item Value Reference Range Comments POC-GLUCOSE METER (BEAKER) 387 mg/dL 70-110 Notified JORDON STAPLETON/TESTED AT [facility] (test tzqk=4308) [address] [place] [address] SPUTUM CULTURE + GRAM [id number] 09:38:00 Test Item Value Reference Range Comments CULTURE (BEAKER) (test kobf=5524) See comment GRAM STAIN RESULT (BEAKER) (test 1+ WBCs hawk=2038) GRAM STAIN RESULT (BEAKER) (test 0-5 epithelial cells niqh=39683) GRAM STAIN RESULT (BEAKER) (test No organisms seen qkoo=558235) Please refer to CF respiratory culture for results. Charges for this culture and gram stain are credited.POCT-GLUCOSE [id number] 09:12:00 Test Item Value Reference Range Comments POC-GLUCOSE METER (BEAKER) 41 mg/dL 70-110 Baby tested Mother ID (test suwr=7876) used/TESTED AT [place] [id number] BASIC METABOLIC [id number] 05:17:00 Test Item Value Reference Range Comments SODIUM (BEAKER) (test 139 meq/L 136-145 nxrn=790) POTASSIUM (BEAKER) (test 3.9 meq/L 3.5-5.1 ocom=900) CHLORIDE (BEAKER) (test 99 meq/L 98-107 jhyw=378) CO2 (BEAKER) (test 31 meq/L 22-29 ayvf=644) BLOOD UREA NITROGEN 21 mg/dL 7-21 (BEAKER) (test vorw=508) CREATININE (BEAKER) (test 0.76 mg/dL 0.57-1.25 ioij=020) GLUCOSE RANDOM (BEAKER) 76 mg/dL 70-105 (test umzl=977) CALCIUM (BEAKER) (test 8.9 mg/dL 8.4-10.2 tlhz=972) EGFR (BEAKER) (test 112 mL/min/1.73 sq m ESTIMATED GFR IS NOT rqzx=5308) ACCURATE CREATININE CLEARANCE IN PREDICTING GLOMERULAR FILTRATION RATE. ESTIMATED GFR IS NOT APPLICABLE FOR DIALYSIS PATIENTS. POCT-GLUCOSE [id number] 22:15:00 Test Item Value Reference Range Comments POC-GLUCOSE METER (BEAKER) 329 mg/dL 70-110 Notified JORDON STAPLETON/TESTED AT [facility] (test dgis=7523) [address] [place], [place] [address] POCT-GLUCOSE [id number] 20:47:00 Test Item Value Reference Range Comments POC-GLUCOSE METER (BEAKER) 432 mg/dL 70-110 Notified JORDON STAPLETON/TESTED AT [facility] (test eirs=2118) [address] [place] [address] POCT-GLUCOSE [id number] 18:31:00 Test Item Value Reference Range Comments POC-GLUCOSE METER (BEAKER) 296 mg/dL 70-110 TESTED AT [address] (test xxah=9598) [place] [address] POCT-GLUCOSE [id number] 18:08:00 Test Item Value Reference Range Comments POC-GLUCOSE METER (BEAKER) 198 mg/dL 70-110 TESTED AT [address] (test sdbn=6605) [place] [address] POCT-GLUCOSE [id number] 18:08:00 Test Item Value Reference Range Comments POC-GLUCOSE METER (BEAKER) 46 mg/dL 70-110 TESTED AT [address] (test vozf=3925) [place] [address] POCT-GLUCOSE [id number] 12:42:00 Test Item Value Reference Range Comments POC-GLUCOSE METER (BEAKER) 71 mg/dL 70-110 TESTED AT [address] (test xrxm=5628) [place] [address] TROPONIN [id number] 10:01:00 Test Item Value Reference Range Comments TROPONIN I (BEAKER) (test dpdd=808) < ng/mL 0.00-0.03 Troponin I (TnI) levels [...] acute neurological disease, and persistent tachyarrhythmia.BASIC METABOLIC [id number] 09:53:00 Test Item Value Reference Range Comments SODIUM (BEAKER) (test 134 meq/L 136-145 hxvl=283) POTASSIUM (BEAKER) (test 4.3 meq/L 3.5-5.1 opmk=453) CHLORIDE (BEAKER) (test 97 meq/L 98-107 vuyv=975) CO2 (BEAKER) (test 28 meq/L 22-29 pbxe=012) BLOOD UREA NITROGEN 23 mg/dL 7-21 (BEAKER) (test vmxh=379) CREATININE (BEAKER) (test 0.84 mg/dL 0.57-1.25 pmlr=841) GLUCOSE RANDOM (BEAKER) 397 mg/dL 70-105 (test jxki=837) CALCIUM (BEAKER) (test 8.8 mg/dL 8.4-10.2 lqiv=555) EGFR (BEAKER) (test 100 mL/min/1.73 sq m ESTIMATED GFR IS NOT kxzk=5006) ACCURATE CREATININE CLEARANCE IN PREDICTING GLOMERULAR FILTRATION RATE. ESTIMATED GFR IS NOT APPLICABLE FOR DIALYSIS PATIENTS. POCT-GLUCOSE [id number] 08:49:00 Test Item Value Reference Range Comments POC-GLUCOSE METER (BEAKER) 168 mg/dL 70-110 TESTED AT [address] (test nqbt=2342) [facility] [address] POCT-GLUCOSE [id number] 20:59:00 Test Item Value Reference Range Comments POC-GLUCOSE METER (BEAKER) 218 mg/dL 70-110 TESTED AT [address] (test fytd=6058) [facility] [address] POCT-GLUCOSE [id number] 17:20:00 Test Item Value Reference Range Comments POC-GLUCOSE METER (BEAKER) 259 mg/dL 70-110 TESTED AT [address] (test ifrm=1565) [place] [address] POCT-GLUCOSE [id number] 15:10:00 Test Item Value Reference Range Comments POC-GLUCOSE METER (BEAKER) 263 mg/dL 70-110 TESTED AT [address] (test eoui=3043) [place] [address] POCT-GLUCOSE [id number] 08:12:00 Test Item Value Reference Range Comments POC-GLUCOSE METER (BEAKER) 126 mg/dL 70-110 TESTED AT [address] (test tjmo=3241) [place] [address] BASIC METABOLIC [id number] 06:51:00 Test Item Value Reference Range Comments SODIUM (BEAKER) (test 139 meq/L 136-145 mfco=542) POTASSIUM (BEAKER) (test 4.3 meq/L 3.5-5.1 arvn=244) CHLORIDE (BEAKER) (test 102 meq/L 98-107 hnsk=855) CO2 (BEAKER) (test 30 meq/L 22-29 nzjw=817) BLOOD UREA NITROGEN 17 mg/dL 7-21 (BEAKER) (test fuuc=720) CREATININE (BEAKER) (test 0.74 mg/dL 0.57-1.25 vubn=270) GLUCOSE RANDOM (BEAKER) 184 mg/dL 70-105 (test kuhh=355) CALCIUM (BEAKER) (test 8.7 mg/dL 8.4-10.2 brrt=778) EGFR (BEAKER) (test 116 mL/min/1.73 sq m ESTIMATED GFR IS NOT squr=5241) ACCURATE CREATININE CLEARANCE IN PREDICTING GLOMERULAR FILTRATION RATE. ESTIMATED GFR IS NOT APPLICABLE FOR DIALYSIS PATIENTS. POCT-GLUCOSE [id number] 21:02:00 Test Item Value Reference Range Comments POC-GLUCOSE METER (BEAKER) 192 mg/dL 70-110 TESTED AT [address] (test rxsc=6807) [place] [address] POCT-GLUCOSE [id number] 16:18:00 Test Item Value Reference Range Comments POC-GLUCOSE METER (BEAKER) 199 mg/dL 70-110 TESTED AT [address] (test kdcb=5704) [place] [address] POCT-GLUCOSE [id number] 14:34:00 Test Item Value Reference Range Comments POC-GLUCOSE METER (BEAKER) 332 mg/dL 70-110 TESTED AT [address] (test qbpn=6781) [place] [address] POCT-GLUCOSE [id number] 11:37:00 Test Item Value Reference Range Comments POC-GLUCOSE METER (BEAKER) 305 mg/dL 70-110 Notified JORDON STAPLETON/TESTED AT [facility] (test zscv=5417) [address] [place] [address] POCT-GLUCOSE [id number] 10:22:00 Test Item Value Reference Range Comments POC-GLUCOSE METER (BEAKER) 322 mg/dL 70-110 Notified JORDON STAPLETON/TESTED AT [facility] (test lzno=4943) [address] [place] [address] BASIC METABOLIC [id number] 09:42:00 Test Item Value Reference Range Comments SODIUM (BEAKER) (test 135 meq/L 136-145 blyv=428) POTASSIUM (BEAKER) (test 4.1 meq/L 3.5-5.1 iblg=196) CHLORIDE (BEAKER) (test 100 meq/L 98-107 ztal=506) CO2 (BEAKER) (test 30 meq/L 22-29 unax=713) BLOOD UREA NITROGEN 13 mg/dL 7-21 (BEAKER) (test yrfo=988) CREATININE (BEAKER) (test 0.65 mg/dL 0.57-1.25 xmpi=983) GLUCOSE RANDOM (BEAKER) 149 mg/dL 70-105 (test uxyl=298) CALCIUM (BEAKER) (test 8.9 mg/dL 8.4-10.2 dlen=045) EGFR (BEAKER) (test 135 mL/min/1.73 sq m ESTIMATED GFR IS NOT ooin=2200) ACCURATE CREATININE CLEARANCE IN PREDICTING GLOMERULAR FILTRATION RATE. ESTIMATED GFR IS NOT APPLICABLE FOR DIALYSIS PATIENTS. POCT-GLUCOSE [id number] 09:24:00 Test Item Value Reference Range Comments POC-GLUCOSE METER (BEAKER) 169 mg/dL 70-110 TESTED AT [address] (test myxt=0329) [place] [address] POCT-GLUCOSE [id number] 08:27:00 Test Item Value Reference Range Comments POC-GLUCOSE METER (BEAKER) 176 mg/dL 70-110 TESTED AT [address] (test nrja=9134) [place] [address] POCT-GLUCOSE [id number] 06:58:00 Test Item Value Reference Range Comments POC-GLUCOSE METER (BEAKER) 214 mg/dL 70-110 TESTED AT [address] (test ggmc=5071) [place] [address] RESPIRATORY PANEL [id number] 06:36:00 Test Item Value Reference Range Comments HUMAN METAPNEUMOVIRUS (BEAKER) (test Not detected Not detected, Equivocal qith=9981) RHINOVIRUS (BEAKER) (test jyme=9711) Not detected Not detected, Equivocal INFLUENZA A (BEAKER) (test wgun=0183) Not detected Not detected, Equivocal INFLUENZA A (NO SUBTYPE) (test Not detected, Equivocal vpyv=4562) INFLUENZA A SUBTYPE H1 (BEAKER) (test Not detected, Equivocal squm=3510) INFLUENZA A SUBTYPE H3 (BEAKER) (test Not detected, Equivocal yzju=9478) INFLUENZA A SUBTYPE H1-2009 (BEAKER) Not detected, Equivocal (test yurx=7708) INFLUENZA B (BEAKER) (test bkcg=7681) Not detected Not detected, Equivocal RESPIRATORY SYNCYTIAL VIRUS (BEAKER) Not detected Not detected, Equivocal (test objc=9618) PARAINFLUENZA VIRUS 1 (BEAKER) (test Not detected Not detected, Equivocal neub=8552) PARAINFLUENZA VIRUS 2 (BEAKER) (test Not detected Not detected, Equivocal qyfd=2407) PARAINFLUENZA VIRUS 3 (BEAKER) (test Not detected Not detected, Equivocal vmpo=2263) PARAINFLUENZA VIRUS 4 (BEAKER) (test Not detected Not detected, Equivocal mwzd=1916) ADENOVIRUS (BEAKER) (test wiqf=3191) Not detected Not detected, Equivocal CORONAVIRUS 229E (BEAKER) (test Not detected Not detected, Equivocal tsko=6391) CORONAVIRUS HKU1 (BEAKER) (test Not detected Not detected, Equivocal kglo=3493) CORONAVIRUS NL63 (BEAKER) (test Not detected Not detected, Equivocal vqhy=0125) CORONAVIRUS OC43 (BEAKER) (test Not detected Not detected, Equivocal ajex=3577) BORDETELLA PERTUSSIS (BEAKER) (test Not detected Not detected, Equivocal wsif=1441) CHLAMYDOPHILA PNEUMONIAE (BEAKER) (test Not detected Not detected, Equivocal qptb=7703) MYCOPLASMA PNEUMONIAE (BEAKER) (test Not detected Not detected, Equivocal brqy=2900) Other viruses and bacteria not targeted by this PCR panel cannot be excluded; therefore clinical correlation and follow up of serology, culture results, and other molecular studies is required. The results are not intended to be used as the sole means for clinical diagnosis or patient management decisions. This sample was tested at the [facility] using the [employer] Respiratory Panel. It is FDA cleared and has been verified and approved by the [facility] for clinical use on nasal swab specimens. It is not FDA-cleared for use on bronchial wash/lavage samples. However, for this sample type, validation was performed and test characteristics were determined and approved, by [facility] for clinical use under the Clinical Laboratory Improvement Amendments (CLIA) of 1988 requirements. Therefore, FDA clearance isnot required. This laboratory is CLIA-certified and [employer] ([employer])-accredited to perform high complexity testing.Other viruses and bacteria not targeted by this PCR panel cannot be excluded; therefore clinical correlation and follow up of serology, culture results, and other molecular studies is required. The results are not intended to be used as the sole means for clinical diagnosis or patient management decisions. This sample was tested at the [facility] using the [employer] Respiratory Panel. It is FDA cleared and has been verified andapproved by the [facility] for clinical use on nasal swab specimens. It is not FDA-cleared for use on bronchial wash/lavage samples. However, for this sample type, validation was performed and test characteristics were determined and approved, by [facility] for clinical use under the Clinical Laboratory Improvement Amendments (CLIA) of 1988 requirements. Therefore, FDA clearance is not required. This laboratory is CLIA-certified and [employer] (CAP)-accredited to perform high complexity testing.POCT-GLUCOSE [id number] 05:59:00 Test Item Value Reference Range Comments POC-GLUCOSE METER (BEAKER) 214 mg/dL 70-110 TESTED AT [facility] [address] (test dpij=8480) [facility] [address] [id number] 05:19:00 Test Item Value Reference Range Comments MAGNESIUM (BEAKER) (test gdvy=841) 1.7 mg/dL 1.6-2.6 If last glucose was less than 500, may do bedside glucose instead of serum glucose.[id number] 05:19:00 Test Item Value Reference Range Comments GLUCOSE RANDOM (BEAKER) (test epoq=313) 265 mg/dL 70-105 If last glucose was less than 500, may do bedside glucose instead of serum glucose.BASIC METABOLIC [id number] 05:19:00 Test Item Value Reference Range Comments SODIUM (BEAKER) (test 133 meq/L 136-145 jmcf=007) POTASSIUM (BEAKER) (test 4.4 meq/L 3.5-5.1 ulzb=044) CHLORIDE (BEAKER) (test 97 meq/L 98-107 lkrs=302) CO2 (BEAKER) (test 30 meq/L 22-29 meum=192) BLOOD UREA NITROGEN 14 mg/dL 7-21 (BEAKER) (test dqdl=307) CREATININE (BEAKER) (test 0.71 mg/dL 0.57-1.25 nunh=098) GLUCOSE RANDOM (BEAKER) 265 mg/dL 70-105 (test naxx=666) CALCIUM (BEAKER) (test 8.8 mg/dL 8.4-10.2 wdso=056) EGFR (BEAKER) (test 122 mL/min/1.73 sq m ESTIMATED GFR IS NOT pdpl=3606) ACCURATE CREATININE CLEARANCE IN PREDICTING GLOMERULAR FILTRATION RATE. ESTIMATED GFR IS NOT APPLICABLE FOR DIALYSIS PATIENTS. If last glucose was less than 500, may do bedside glucose instead of serum glucose.POCT-GLUCOSE [id number] 04:46:00 Test Item Value Reference Range Comments POC-GLUCOSE METER (BEAKER) 272 mg/dL 70-110 TESTED AT [address] (test vegb=0865) [place] [address] POCT-GLUCOSE [id number] 03:44:00 Test Item Value Reference Range Comments POC-GLUCOSE METER (BEAKER) 326 mg/dL 70-110 TESTED AT [address] (test qjrg=3474) [place] [address] POCT-GLUCOSE [id number] 02:12:00 Test Item Value Reference Range Comments POC-GLUCOSE METER (BEAKER) 217 mg/dL 70-110 TESTED AT [address] (test wfyz=9387) [place] [address] [id number] 02:02:00 Test Item Value Reference Range Comments POTASSIUM (BEAKER) (test bdop=250) 3.9 meq/L 3.5-5.1 If last glucose was less than 500, may do bedside glucose instead of serum glucose.[id number] 02:02:00 Test Item Value Reference Range Comments GLUCOSE RANDOM (BEAKER) (test ghyw=161) 122 mg/dL 70-105 If last glucose was less than 500, may do bedside glucose instead of serum glucose.BASIC METABOLIC [id number] 02:02:00 Test Item Value Reference Range Comments SODIUM (BEAKER) (test 135 meq/L 136-145 lfxr=754) POTASSIUM (BEAKER) (test 3.9 meq/L 3.5-5.1 cifk=848) CHLORIDE (BEAKER) (test 100 meq/L 98-107 oius=429) CO2 (BEAKER) (test 27 meq/L 22-29 rrvc=790) BLOOD UREA NITROGEN 14 mg/dL 7-21 (BEAKER) (test tfnr=075) CREATININE (BEAKER) (test 0.70 mg/dL 0.57-1.25 hapl=202) GLUCOSE RANDOM (BEAKER) 122 mg/dL 70-105 (test lpba=639) CALCIUM (BEAKER) (test 8.6 mg/dL 8.4-10.2 xwku=467) EGFR (BEAKER) (test 124 mL/min/1.73 sq m ESTIMATED GFR IS NOT ahuy=0437) ACCURATE CREATININE CLEARANCE IN PREDICTING GLOMERULAR FILTRATION RATE. ESTIMATED GFR IS NOT APPLICABLE FOR DIALYSIS PATIENTS. If last glucose was less than 500, may do bedside glucose instead of serum glucose.POCT-GLUCOSE [id number] 01:12:00 Test Item Value Reference Range Comments POC-GLUCOSE METER (BEAKER) 106 mg/dL 70-110 TESTED AT [address] (test baeh=7998) [place] [id number] POCT-GLUCOSE [id number] 00:39:00 Test Item Value Reference Range Comments POC-GLUCOSE METER (BEAKER) 51 mg/dL 70-110 TESTED AT [address] (test yctd=5826) [place] [id number] POCT-GLUCOSE [id number] 00:30:00 Test Item Value Reference Range Comments POC-GLUCOSE METER (BEAKER) 51 mg/dL 70-110 TESTED AT [address] (test pijv=2534) [place] [id number] 22:06:00 Test Item Value Reference Range Comments POTASSIUM (BEAKER) (test gtfl=145) 3.8 meq/L 3.5-5.1 If last glucose was less than 500, may do bedside glucose instead of serum glucose.[id number] 22:06:00 Test Item Value Reference Range Comments GLUCOSE RANDOM (BEAKER) (test wbvc=415) 311 mg/dL 70-105 If last glucose was less than 500, may do bedside glucose instead of serum glucose.KETONE, [id number] 22:03:00 Test Item Value Reference Range Comments KETONES, BLOOD (BEAKER) (test maus=0385) 0.1 mmol/L <0.4 POCT-GLUCOSE [id number] 21:52:00 Test Item Value Reference Range Comments POC-GLUCOSE METER (BEAKER) 403 mg/dL 70-110 Notified RN or MD Patient (test qdgb=1633) refused repeat test/TESTED AT [address] [address] BASIC METABOLIC [id number] 19:28:00 Test Item Value Reference Range Comments SODIUM (BEAKER) (test 129 meq/L 136-145 pcca=586) POTASSIUM (BEAKER) (test 4.6 meq/L 3.5-5.1 slbi=822) CHLORIDE (BEAKER) (test 93 meq/L 98-107 kajt=286) CO2 (BEAKER) (test 24 meq/L 22-29 jain=003) BLOOD UREA NITROGEN 17 mg/dL 7-21 (BEAKER) (test zeec=710) CREATININE (BEAKER) (test 1.39 mg/dL 0.57-1.25 oqik=668) GLUCOSE RANDOM (BEAKER) 822 mg/dL 70-105 (test iwzq=876) CALCIUM (BEAKER) (test 8.6 mg/dL 8.4-10.2 qujo=197) EGFR (BEAKER) (test 56 mL/min/1.73 sq m ESTIMATED GFR IS NOT dxwf=5814) ACCURATE CREATININE CLEARANCE IN PREDICTING GLOMERULAR FILTRATION RATE. ESTIMATED GFR IS NOT APPLICABLE FOR DIALYSIS PATIENTS. POCT-GLUCOSE [id number] 17:51:00 Test Item Value Reference Range Comments POC-GLUCOSE METER (BEAKER) > mg/dL 70-110 OUTSIDE MEASURING RANGETESTED AT (test shqn=1247) [facility] [address] [facility] [address] POCT-GLUCOSE [id number] 12:17:00 Test Item Value Reference Range Comments POC-GLUCOSE METER (BEAKER) > mg/dL 70-110 OUTSIDE MEASURING RANGENotified RN (test boky=2578) or MD Patient refused repeat test/TESTED AT [address] [address] URINALYSIS W/ [id number] 10:06:00 Test Item Value Reference Range Comments COLOR (BEAKER) (test rwco=626) Light Yellow CLARITY (BEAKER) (test faaj=991) Clear SPECIFIC GRAVITY UA (BEAKER) (test jfmb=416) 1.018 1.001-1.035 PH UA (BEAKER) (test qhub=254) 6.0 5.0-8.0 PROTEIN UA (BEAKER) (test jbsn=839) 50 mg/dL Negative GLUCOSE UA (BEAKER) (test xhel=117) >1000 mg/dL Negative KETONES UA (BEAKER) (test yuuv=927) Negative Negative BILIRUBIN UA (BEAKER) (test bujg=476) Negative Negative BLOOD UA (BEAKER) (test fpsg=490) Trace Negative NITRITE UA (BEAKER) (test pjim=514) Negative Negative LEUKOCYTE ESTERASE UA (BEAKER) (test novm=530) Negative Negative UROBILINOGEN UA (BEAKER) (test pteh=914) 0.2 mg/dL 0.2-1.0 RBC UA (BEAKER) (test kpcf=392) 1 /HPF WBC UA (BEAKER) (test msis=522) < /HPF BACTERIA (BEAKER) (test woux=060) Rare SQUAMOUS EPITHELIAL (BEAKER) (test odin=764) 2 /HPF SOURCE(BEAKER) (test oomb=8045) POCT-GLUCOSE [id number] 07:31:00 Test Item Value Reference Range Comments POC-GLUCOSE METER (BEAKER) 365 mg/dL 70-110 TESTED AT [address] (test jwbq=5207) [place] [address] RAD, CHEST, 1 VIEW, NON [id number] 00:14:00Reason for exam:->SHORTNESS OF BREATHReason for exam:->COUGHIs [...] MDReport Verified Date/Time: 2017 00:14:15 Reading Location: [address] Reading Room TROPONIN [id number] 00:11:00 Test Item Value Reference Range Comments TROPONIN I (BEAKER) (test iqgi=516) < ng/mL 0.00-0.03 Troponin I (TnI) levels [...] failure, acidosis, acute neurological disease, and persistent tachyarrhythmia.[id number] 00:04:00 Test Item Value Reference Range Comments MAGNESIUM (BEAKER) (test ifjm=035) 1.5 mg/dL 1.6-2.6 BASIC METABOLIC [id number] 00:04:00 Test Item Value Reference Range Comments SODIUM (BEAKER) (test 138 meq/L 136-145 uipv=570) POTASSIUM (BEAKER) (test 4.1 meq/L 3.5-5.1 dnhs=858) CHLORIDE (BEAKER) (test 102 meq/L 98-107 ckdv=858) CO2 (BEAKER) (test 28 meq/L 22-29 gjke=561) BLOOD UREA NITROGEN 9 mg/dL 7-21 (BEAKER) (test rzil=684) CREATININE (BEAKER) (test 0.65 mg/dL 0.57-1.25 iwlv=494) GLUCOSE RANDOM (BEAKER) 133 mg/dL 70-105 (test jrcd=422) CALCIUM (BEAKER) (test 8.7 mg/dL 8.4-10.2 yrpp=154) EGFR (BEAKER) (test 135 mL/min/1.73 sq m ESTIMATED GFR IS NOT ghju=2317) ACCURATE CREATININE CLEARANCE IN PREDICTING GLOMERULAR FILTRATION RATE. ESTIMATED GFR IS NOT APPLICABLE FOR DIALYSIS PATIENTS. CBC W/PLT COUNT & AUTO [id number] 23:42:00 Test Item Value Reference Range Comments WHITE BLOOD CELL COUNT (BEAKER) (test yrij=502) 12.0 K/ L 3.5-10.5 RED BLOOD CELL COUNT (BEAKER) (test hycy=839) 4.14 M/ L 3.93-5.22 HEMOGLOBIN (BEAKER) (test zpdx=047) 10.9 GM/DL 11.2-15.7 HEMATOCRIT (BEAKER) (test dehr=271) 35.8 % 34.1-44.9 MEAN CORPUSCULAR VOLUME (BEAKER) (test xufi=297) 86.5 fL 79.4-94.8 MEAN CORPUSCULAR HEMOGLOBIN (BEAKER) (test 26.3 pg 25.6-32.2 ezmo=400) MEAN CORPUSCULAR HEMOGLOBIN CONC (BEAKER) (test 30.4 GM/DL 32.2-35.5 xmjh=908) RED CELL DISTRIBUTION WIDTH (BEAKER) (test 17.1 % 11.7-14.4 ijnu=854) PLATELET COUNT (BEAKER) (test ryfi=044) 366 K/CU MM 150-450 MEAN PLATELET VOLUME (BEAKER) (test ygpr=335) 11.0 fL 9.4-12.3 NUCLEATED RED BLOOD CELLS (BEAKER) (test 0 /100 WBC 0-0 nhim=345) NEUTROPHILS RELATIVE PERCENT (BEAKER) (test 65 % esea=904) LYMPHOCYTES RELATIVE PERCENT (BEAKER) (test 22 % geeg=877) MONOCYTES RELATIVE PERCENT (BEAKER) (test 8 % jhbg=667) EOSINOPHILS RELATIVE PERCENT (BEAKER) (test 5 % otdh=769) BASOPHILS RELATIVE PERCENT (BEAKER) (test 0 % mocm=154) NEUTROPHILS ABSOLUTE COUNT (BEAKER) (test 7.82 K/ L 1.56-6.13 czdd=412) LYMPHOCYTES ABSOLUTE COUNT (BEAKER) (test 2.61 K/ L 1.18-3.74 zoou=587) MONOCYTES ABSOLUTE COUNT (BEAKER) (test 0.99 K/ L 0.24-0.36 grji=456) EOSINOPHILS ABSOLUTE COUNT (BEAKER) (test 0.54 K/ L 0.04-0.36 flij=541) BASOPHILS ABSOLUTE COUNT (BEAKER) (test 0.04 K/ L 0.01-0.08 jmxr=870) IMMATURE GRANULOCYTES-RELATIVE PERCENT (BEAKER) 0 % 0-1 (test kqqd=8620) POCT-LACTIC ACID, [id number] 23:36:00 Test Item Value Reference Range Comments POC-LACTIC ACID, VENOUS 1.0 mmol/L 0.9-1.7 TESTED AT [facility] [address] (BEAKER) (test dzmj=6741) [facility] [address] FUNGUS CULTURE + [id number] 11:24:00 Test Item Value Reference Range Comments CULTURE (BEAKER) (test gymf=6344) 2+ Clau glabrata FUNGUS SMEAR (BEAKER) (test No fungi seen rsjz=7439) Previously reported organism is no longer reported. Please contact the Microbiology Department for additional information.CF RESPIRATORY [id number] 17:12:00 Test Item Value Reference Range Comments CULTURE (BEAKER) (test PSEUDOMONAS <1+ Pseudomonas hlsl=2597) AERUGINOSA aeruginosa (MUCOID-PHENOTYPE) (Mucoid-phenotype) Amikacin (test code=1) Susceptible 0-16 , Resistant <0 or >16 Aztreonam (test Susceptible 0-8 , code=32) Resistant <0 or >8 Cefepime (test code=51) Susceptible 0-8 , Resistant <0 or >8 Ceftazidime (test Susceptible 0-8 , code=27) Resistant <0 or >8 Ciprofloxacin (test Susceptible 0-1 , code=7) Resistant <0 or >1 Doripenem (test Susceptible 0-2 , rzye=662) Resistant <0 or >2 Gentamicin (test Susceptible [...] >4 CULTURE (BEAKER) (test PSEUDOMONAS <1+ Pseudomonas dnhp=4568) AERUGINOSA aeruginosaof a second type Amikacin (test code=1) Susceptible 0-16 , Resistant <0 or >16 Aztreonam (test Susceptible 0-8 , code=32) Resistant <0 or >8 Cefepime (test code=51) Susceptible 0-8 , Resistant <0 or >8 Ceftazidime (test Susceptible 0-8 , code=27) Resistant <0 or >8 Ciprofloxacin (test Susceptible 0-1 , code=7) Resistant <0 or >1 Doripenem (test Susceptible 0-2 , kppy=261) Resistant <0 or >2 Gentamicin (test Susceptible [...] >4 CULTURE (BEAKER) (test PSEUDOMONAS <1+ Pseudomonas pqhb=0180) AERUGINOSA aeruginosaof a third type Amikacin (test code=1) Susceptible 0-16 , Resistant <0 or >16 Aztreonam (test Susceptible 0-8 , code=32) Resistant <0 or >8 Cefepime (test code=51) Susceptible 0-8 , Resistant <0 or >8 Ceftazidime (test Susceptible 0-8 , code=27) Resistant <0 or >8 Ciprofloxacin (test Susceptible 0-1 , code=7) Resistant <0 or >1 Doripenem (test Susceptible 0-2 , efdc=805) Resistant <0 or >2 Gentamicin (test Susceptible [...] or >4 1+ Normal respiratory derick presentSPIN/CONCENTRATION [id number] 06:32:00 Test Item Value Reference Range Comments CONCENTRATION CHARGED (BEAKER) (test fwwd=5408) Done POCT-GLUCOSE [id number] 17:10:00 Test Item Value Reference Range Comments POC-GLUCOSE METER (BEAKER) 338 mg/dL 70-110 TESTED AT [address] (test abpc=5266) [place] [id number] POCT-GLUCOSE [id number] 12:26:00 Test Item Value Reference Range Comments POC-GLUCOSE METER (BEAKER) 127 mg/dL 70-110 TESTED AT [address] (test vugf=9271) [facility] [address] POCT-GLUCOSE [id number] 08:06:00 Test Item Value Reference Range Comments POC-GLUCOSE METER (BEAKER) 174 mg/dL 70-110 TESTED AT [address] (test jstw=6167) [facility] [address] POCT-GLUCOSE [id number] 21:28:00 Test Item Value Reference Range Comments POC-GLUCOSE METER (BEAKER) 205 mg/dL 70-110 TESTED AT [address] (test jiho=3368) [facility] [address] POCT-GLUCOSE [id number] 17:44:00 Test Item Value Reference Range Comments POC-GLUCOSE METER (BEAKER) 229 mg/dL 70-110 TESTED AT [address] (test yhne=2118) [facility] [address] POCT-GLUCOSE [id number] 12:08:00 Test Item Value Reference Range Comments POC-GLUCOSE METER (BEAKER) 131 mg/dL 70-110 TESTED AT [address] (test dzgj=8398) [place] [address] RAD, ABDOMEN/KUB, 1 VIEW [id number] 10:55:00Reason for exam:->evaluate stool burden, abdominal distention, cf patientShould this be performedat the bedside?->NoFINAL REPORT Two abdomen images compared to February 25, 2018 Discussion: Nonspecific bowel gas pattern with moderate retained feces. No evidence of bowel obstruction. No evidence of free intraperitoneal air. Regional bones are unremarkable. Signed: Flip Choe Verified Date/Time: 04/19/2018 10:55:54 Reading Location: [facility] Reading Room 10 :55 AMU/S, ABDOMINAL, [id number] 08:54:00Abdomen limited area? Add comment if clarification [...] pancreas, otherwise unremarkable exam. Signed: Everardo Castellanos Verified Date/Time: 04/19/2018 08:54:16 Reading Location: [facility] B1 [id number] Ultrasound Reading Room 08: 54 AMPOCT-GLUCOSE [id number] 08:18:00 Test Item Value Reference Range Comments POC-GLUCOSE METER (BEAKER) 105 mg/dL 70-110 TESTED AT [address] (test cgre=1681) [place] [id number] POCT-GLUCOSE [id number] 08:06:00 Test Item Value Reference Range Comments POC-GLUCOSE METER (BEAKER) 74 mg/dL 70-110 TESTED AT [address] (test mgfp=9751) [place] [address] BASIC METABOLIC [id number] 06:31:00 Test Item Value Reference Range Comments SODIUM (BEAKER) (test 138 meq/L 136-145 serx=219) POTASSIUM (BEAKER) (test 5.0 meq/L 3.5-5.1 yfki=877) CHLORIDE (BEAKER) (test 97 meq/L 98-107 mmvv=577) CO2 (BEAKER) (test 33 meq/L 22-29 fmgq=512) BLOOD UREA NITROGEN 25 mg/dL 7-21 (BEAKER) (test znoq=422) CREATININE (BEAKER) (test 0.82 mg/dL 0.57-1.25 bzjl=674) GLUCOSE RANDOM (BEAKER) 107 mg/dL 70-105 (test lcau=628) CALCIUM (BEAKER) (test 8.1 mg/dL 8.4-10.2 gkcc=552) EGFR (BEAKER) (test 103 mL/min/1.73 sq m ESTIMATED GFR IS NOT arxe=6644) ACCURATE CREATININE CLEARANCE IN PREDICTING GLOMERULAR FILTRATION RATE. ESTIMATED GFR IS NOT APPLICABLE FOR DIALYSIS PATIENTS. POCT-GLUCOSE [id number] 21:28:00 Test Item Value Reference Range Comments POC-GLUCOSE METER (BEAKER) 63 mg/dL 70-110 Notified JORDON STAPLETON/TESTED AT [facility] (test wqan=5845) [address] [place] [address] POCT-GLUCOSE [id number] 17:32:00 Test Item Value Reference Range Comments POC-GLUCOSE METER (BEAKER) 217 mg/dL 70-110 TESTED AT [address] (test necp=9160) [place] [address] POCT-GLUCOSE [id number] 16:55:00 Test Item Value Reference Range Comments POC-GLUCOSE METER (BEAKER) 75 mg/dL 70-110 TESTED AT [address] (test oaed=1875) [place] [address] BASIC METABOLIC [id number] 12:35:00 Test Item Value Reference Range Comments SODIUM (BEAKER) (test 141 meq/L 136-145 bnzb=895) POTASSIUM (BEAKER) (test 4.6 meq/L 3.5-5.1 ldfw=642) CHLORIDE (BEAKER) (test 102 meq/L 98-107 tldg=764) CO2 (BEAKER) (test 33 meq/L 22-29 ewvn=535) BLOOD UREA NITROGEN 20 mg/dL 7-21 (BEAKER) (test zjql=355) CREATININE (BEAKER) (test 0.74 mg/dL 0.57-1.25 yqdh=603) GLUCOSE RANDOM (BEAKER) 44 mg/dL 70-105 (test bumb=520) CALCIUM (BEAKER) (test 8.1 mg/dL 8.4-10.2 duwu=926) EGFR (BEAKER) (test 116 mL/min/1.73 sq m ESTIMATED GFR IS NOT pfii=1056) ACCURATE CREATININE CLEARANCE IN PREDICTING GLOMERULAR FILTRATION RATE. ESTIMATED GFR IS NOT APPLICABLE FOR DIALYSIS PATIENTS. POCT-GLUCOSE [id number] 12:06:00 Test Item Value Reference Range Comments POC-GLUCOSE METER (BEAKER) 43 mg/dL 70-110 Notified JORDON STAPLETON/TESTED AT [facility] (test jxgx=6759) [address] [facility] [address] [id number] 12:01:00 Test Item Value Reference Range Comments MAGNESIUM (BEAKER) (test ziua=243) 1.8 mg/dL 1.6-2.6 CBC W/PLT COUNT & AUTO [id number] 11:18:00 Test Item Value Reference Range Comments WHITE BLOOD CELL COUNT (BEAKER) (test hciw=045) 11.8 K/ L 3.5-10.5 RED BLOOD CELL COUNT (BEAKER) (test iphp=582) 3.37 M/ L 3.93-5.22 HEMOGLOBIN (BEAKER) (test ouks=085) 8.8 GM/DL 11.2-15.7 HEMATOCRIT (BEAKER) (test chct=030) 29.5 % 34.1-44.9 MEAN CORPUSCULAR VOLUME (BEAKER) (test vjqz=711) 87.5 fL 79.4-94.8 MEAN CORPUSCULAR HEMOGLOBIN (BEAKER) (test 26.1 pg 25.6-32.2 dnio=205) MEAN CORPUSCULAR HEMOGLOBIN CONC (BEAKER) (test 29.8 GM/DL 32.2-35.5 gutf=370) RED CELL DISTRIBUTION WIDTH (BEAKER) (test 16.0 % 11.7-14.4 uxrv=845) PLATELET COUNT (BEAKER) (test syew=276) 294 K/CU MM 150-450 MEAN PLATELET VOLUME (BEAKER) (test nryj=384) 10.7 fL 9.4-12.3 NUCLEATED RED BLOOD CELLS (BEAKER) (test 0 /100 WBC 0-0 fsao=864) NEUTROPHILS RELATIVE PERCENT (BEAKER) (test 76 % gcty=234) LYMPHOCYTES RELATIVE PERCENT (BEAKER) (test 12 % ouzc=916) MONOCYTES RELATIVE PERCENT (BEAKER) (test 7 % owgi=334) EOSINOPHILS RELATIVE PERCENT (BEAKER) (test 4 % mgst=459) BASOPHILS RELATIVE PERCENT (BEAKER) (test 0 % erpg=879) NEUTROPHILS ABSOLUTE COUNT (BEAKER) (test 8.92 K/ L 1.56-6.13 daob=236) LYMPHOCYTES ABSOLUTE COUNT (BEAKER) (test 1.36 K/ L 1.18-3.74 gkem=895) MONOCYTES ABSOLUTE COUNT (BEAKER) (test 0.86 K/ L 0.24-0.36 ohjz=964) EOSINOPHILS ABSOLUTE COUNT (BEAKER) (test 0.49 K/ L 0.04-0.36 rvga=822) BASOPHILS ABSOLUTE COUNT (BEAKER) (test 0.03 K/ L 0.01-0.08 zkdx=557) IMMATURE GRANULOCYTES-RELATIVE PERCENT (BEAKER) 1 % 0-1 (test pnli=1277) POCT-GLUCOSE [id number] 07:31:00 Test Item Value Reference Range Comments POC-GLUCOSE METER (BEAKER) 275 mg/dL 70-110 TESTED AT [address] (test ekpr=4750) [facility] [address] POCT-GLUCOSE [id number] 22:01:00 Test Item Value Reference Range Comments POC-GLUCOSE METER (BEAKER) 109 mg/dL 70-110 TESTED AT [address] (test njtb=6099) [facility] [address] POCT-GLUCOSE [id number] 21:11:00 Test Item Value Reference Range Comments POC-GLUCOSE METER (BEAKER) 61 mg/dL 70-110 Notified JORDON STAPLETON/TESTED AT [facility] (test hcnf=6767) [address] [facility] [address] POCT-GLUCOSE [id number] 17:41:00 Test Item Value Reference Range Comments POC-GLUCOSE METER (BEAKER) 68 mg/dL 70-110 TESTED AT [facility] [address] [place] [address] (test oyqb=2277) [facility] [address] POCT-GLUCOSE [id number] 16:51:00 Test Item Value Reference Range Comments POC-GLUCOSE METER (BEAKER) 74 mg/dL 70-110 TESTED AT [facility] [address] [place] [address] (test cxvp=1562) [facility] [address] URINALYSIS W/ [id number] 14:57:00 Test Item Value Reference Range Comments COLOR (BEAKER) (test vddh=205) Yellow CLARITY (BEAKER) (test zjak=433) Clear SPECIFIC GRAVITY UA (BEAKER) (test rkaf=388) 1.009 1.001-1.035 PH UA (BEAKER) (test fxor=877) 7.0 5.0-8.0 PROTEIN UA (BEAKER) (test vksk=946) 30 mg/dL Negative GLUCOSE UA (BEAKER) (test yjzy=631) Negative Negative KETONES UA (BEAKER) (test klau=120) Negative Negative BILIRUBIN UA (BEAKER) (test fmzx=349) Negative Negative BLOOD UA (BEAKER) (test sidq=334) Negative Negative NITRITE UA (BEAKER) (test uvii=967) Negative Negative LEUKOCYTE ESTERASE UA (BEAKER) (test yxxr=411) Negative Negative UROBILINOGEN UA (BEAKER) (test elfu=522) 0.2 mg/dL 0.2-1.0 RBC UA (BEAKER) (test wsbo=988) < /HPF WBC UA (BEAKER) (test anec=015) 23 /HPF SQUAMOUS EPITHELIAL (BEAKER) (test dzqf=280) 16 /HPF SOURCE(BEAKER) (test anmn=4402) Urine, Voided [id number] 14:23:00 Test Item Value Reference Range Comments MAGNESIUM (BEAKER) (test iyqq=610) 0.9 mg/dL 1.6-2.6 BASIC METABOLIC [id number] 11:55:00 Test Item Value Reference Range Comments SODIUM (BEAKER) (test 146 meq/L 136-145 Discordant SODIUM result qksc=132) Compared to previous result, Clinical correlation required. POTASSIUM (BEAKER) (test 2.3 meq/L 3.5-5.1 adzn=568) CHLORIDE (BEAKER) (test 102 meq/L 98-107 ippa=628) CO2 (BEAKER) (test 31 meq/L 22-29 qeyd=474) BLOOD UREA NITROGEN 19 mg/dL 7-21 (BEAKER) (test vyxm=719) CREATININE (BEAKER) (test 0.86 mg/dL 0.57-1.25 fkws=092) GLUCOSE RANDOM (BEAKER) 63 mg/dL 70-105 (test ener=301) CALCIUM (BEAKER) (test 7.8 mg/dL 8.4-10.2 iddm=666) EGFR (BEAKER) (test 97 mL/min/1.73 sq m ESTIMATED GFR IS NOT ofjn=9863) ACCURATE CREATININE CLEARANCE IN PREDICTING GLOMERULAR FILTRATION RATE. ESTIMATED GFR IS NOT APPLICABLE FOR DIALYSIS PATIENTS. CBC W/PLT COUNT & AUTO [id number] 11:34:00 Test Item Value Reference Range Comments WHITE BLOOD CELL COUNT (BEAKER) (test ecqo=266) 11.6 K/ L 3.5-10.5 RED BLOOD CELL COUNT (BEAKER) (test lgyp=551) 3.50 M/ L 3.93-5.22 HEMOGLOBIN (BEAKER) (test nxnx=124) 9.1 GM/DL 11.2-15.7 HEMATOCRIT (BEAKER) (test quan=421) 30.1 % 34.1-44.9 MEAN CORPUSCULAR VOLUME (BEAKER) (test tddj=969) 86.0 fL 79.4-94.8 MEAN CORPUSCULAR HEMOGLOBIN (BEAKER) (test 26.0 pg 25.6-32.2 tfxi=529) MEAN CORPUSCULAR HEMOGLOBIN CONC (BEAKER) (test 30.2 GM/DL 32.2-35.5 eikv=618) RED CELL DISTRIBUTION WIDTH (BEAKER) (test 15.7 % 11.7-14.4 kgcj=820) PLATELET COUNT (BEAKER) (test gijc=918) 316 K/CU MM 150-450 MEAN PLATELET VOLUME (BEAKER) (test bmun=159) 10.9 fL 9.4-12.3 NUCLEATED RED BLOOD CELLS (BEAKER) (test 0 /100 WBC 0-0 bzrx=743) NEUTROPHILS RELATIVE PERCENT (BEAKER) (test 73 % jsvi=648) LYMPHOCYTES RELATIVE PERCENT (BEAKER) (test 16 % hmmi=740) MONOCYTES RELATIVE PERCENT (BEAKER) (test 6 % turp=151) EOSINOPHILS RELATIVE PERCENT (BEAKER) (test 4 % bcoq=152) BASOPHILS RELATIVE PERCENT (BEAKER) (test 0 % reuh=963) NEUTROPHILS ABSOLUTE COUNT (BEAKER) (test 8.54 K/ L 1.56-6.13 zsyq=912) LYMPHOCYTES ABSOLUTE COUNT (BEAKER) (test 1.81 K/ L 1.18-3.74 duwm=798) MONOCYTES ABSOLUTE COUNT (BEAKER) (test 0.67 K/ L 0.24-0.36 moau=947) EOSINOPHILS ABSOLUTE COUNT (BEAKER) (test 0.46 K/ L 0.04-0.36 joqu=965) BASOPHILS ABSOLUTE COUNT (BEAKER) (test 0.05 K/ L 0.01-0.08 jslb=275) IMMATURE GRANULOCYTES-RELATIVE PERCENT (BEAKER) 1 % 0-1 (test aojw=8333) POCT-GLUCOSE [id number] 08:27:00 Test Item Value Reference Range Comments POC-GLUCOSE METER (BEAKER) 128 mg/dL 70-110 TESTED AT [address] (test bwet=8347) [place] [id number] POCT-GLUCOSE [id number] 21:14:00 Test Item Value Reference Range Comments POC-GLUCOSE METER (BEAKER) 241 mg/dL 70-110 TESTED AT [address] (test pezx=7674) [place] [id number] POCT-GLUCOSE [id number] 18:51:00 Test Item Value Reference Range Comments POC-GLUCOSE METER (BEAKER) 140 mg/dL 70-110 TESTED AT [address] (test nfng=3073) [place] [id number] POCT-GLUCOSE [id number] 18:06:00 Test Item Value Reference Range Comments POC-GLUCOSE METER (BEAKER) 31 mg/dL 70-110 TESTED AT [address] (test ruqp=4616) [place] [id number] POCT-GLUCOSE [id number] 12:58:00 Test Item Value Reference Range Comments POC-GLUCOSE METER (BEAKER) 72 mg/dL 70-110 TESTED AT [address] (test pxzf=7488) [place] [id number] POCT-GLUCOSE [id number] 08:21:00 Test Item Value Reference Range Comments POC-GLUCOSE METER (BEAKER) 162 mg/dL 70-110 TESTED AT [address] (test tfsa=8727) [place] [address] [id number] 06:55:00 Test Item Value Reference Range Comments BLOOD UREA NITROGEN (BEAKER) (test mbed=524) 15 mg/dL 7-21 [id number] 06:55:00 Test Item Value Reference Range Comments CREATININE (BEAKER) (test 0.97 mg/dL 0.57-1.25 ewfw=696) EGFR (BEAKER) (test 85 mL/min/1.73 sq m ESTIMATED GFR IS NOT njfm=7091) ACCURATE CREATININE CLEARANCE IN PREDICTING GLOMERULAR FILTRATION RATE. ESTIMATED GFR IS NOT APPLICABLE FOR DIALYSIS PATIENTS. POCT-GLUCOSE [id number] 21:28:00 Test Item Value Reference Range Comments POC-GLUCOSE METER (BEAKER) 141 mg/dL 70-110 TESTED AT [address] (test vmjo=7779) [place] [id number] POCT-GLUCOSE [id number] 17:29:00 Test Item Value Reference Range Comments POC-GLUCOSE METER (BEAKER) 122 mg/dL 70-110 TESTED AT [address] (test ryvw=7798) [place] [id number] POCT-GLUCOSE [id number] 11:22:00 Test Item Value Reference Range Comments POC-GLUCOSE METER (BEAKER) 66 mg/dL 70-110 TESTED AT [address] (test atvx=4866) [place] [address] POCT-GLUCOSE [id number] 11:22:00 Test Item Value Reference Range Comments POC-GLUCOSE METER (BEAKER) 224 mg/dL 70-110 TESTED AT [address] (test owat=8632) [place] [address] COMPREHENSIVE METABOLIC [id number] 07:22:00 Test Item Value Reference Range Comments TOTAL PROTEIN (BEAKER) 6.5 gm/dL 6.0-8.3 (test rqos=842) ALBUMIN (BEAKER) (test 2.7 g/dL 3.5-5.0 xqeu=4815) ALKALINE PHOSPHATASE 113 U/L 40-150 (BEAKER) (test wgfm=742) BILIRUBIN TOTAL (BEAKER) 0.1 mg/dL 0.2-1.2 (test daqg=624) SODIUM (BEAKER) (test 135 meq/L 136-145 aynp=810) POTASSIUM (BEAKER) (test 3.8 meq/L 3.5-5.1 advu=583) CHLORIDE (BEAKER) (test 104 meq/L 98-107 qoda=500) CO2 (BEAKER) (test 23 meq/L 22-29 kvov=001) BLOOD UREA NITROGEN 17 mg/dL 7-21 (BEAKER) (test mune=632) CREATININE (BEAKER) (test 1.15 mg/dL 0.57-1.25 fltm=747) GLUCOSE RANDOM (BEAKER) 239 mg/dL 70-105 (test akhj=400) CALCIUM (BEAKER) (test 8.5 mg/dL 8.4-10.2 frrh=103) AST (SGOT) (BEAKER) (test 14 U/L 5-34 yrgv=499) ALT (SGPT) (BEAKER) (test 6 U/L 6-55 ltrs=588) EGFR (BEAKER) (test 70 mL/min/1.73 sq m ESTIMATED GFR IS NOT iawu=1986) ACCURATE CREATININE CLEARANCE IN PREDICTING GLOMERULAR FILTRATION RATE. ESTIMATED GFR IS NOT APPLICABLE FOR DIALYSIS PATIENTS. CBC W/PLT COUNT & AUTO [id number] 06:59:00 Test Item Value Reference Range Comments WHITE BLOOD CELL COUNT (BEAKER) (test adwz=512) 10.6 K/ L 3.5-10.5 RED BLOOD CELL COUNT (BEAKER) (test cwak=829) 3.57 M/ L 3.93-5.22 HEMOGLOBIN (BEAKER) (test qtho=997) 9.6 GM/DL 11.2-15.7 HEMATOCRIT (BEAKER) (test gsps=304) 31.1 % 34.1-44.9 MEAN CORPUSCULAR VOLUME (BEAKER) (test satf=627) 87.1 fL 79.4-94.8 MEAN CORPUSCULAR HEMOGLOBIN (BEAKER) (test 26.9 pg 25.6-32.2 aqwe=274) MEAN CORPUSCULAR HEMOGLOBIN CONC (BEAKER) (test 30.9 GM/DL 32.2-35.5 ofgo=938) RED CELL DISTRIBUTION WIDTH (BEAKER) (test 14.9 % 11.7-14.4 ozjk=657) PLATELET COUNT (BEAKER) (test xgpn=331) 291 K/CU MM 150-450 MEAN PLATELET VOLUME (BEAKER) (test qjov=751) 11.0 fL 9.4-12.3 NUCLEATED RED BLOOD CELLS (BEAKER) (test 0 /100 WBC 0-0 ehnn=518) NEUTROPHILS RELATIVE PERCENT (BEAKER) (test 78 % qkee=894) LYMPHOCYTES RELATIVE PERCENT (BEAKER) (test 14 % prch=499) MONOCYTES RELATIVE PERCENT (BEAKER) (test 6 % gemm=178) EOSINOPHILS RELATIVE PERCENT (BEAKER) (test 1 % mhej=124) BASOPHILS RELATIVE PERCENT (BEAKER) (test 0 % qyxv=824) NEUTROPHILS ABSOLUTE COUNT (BEAKER) (test 8.22 K/ L 1.56-6.13 buiq=771) LYMPHOCYTES ABSOLUTE COUNT (BEAKER) (test 1.53 K/ L 1.18-3.74 nrbf=540) MONOCYTES ABSOLUTE COUNT (BEAKER) (test 0.65 K/ L 0.24-0.36 kwtu=807) EOSINOPHILS ABSOLUTE COUNT (BEAKER) (test 0.07 K/ L 0.04-0.36 rlfo=122) BASOPHILS ABSOLUTE COUNT (BEAKER) (test 0.03 K/ L 0.01-0.08 efuq=535) IMMATURE GRANULOCYTES-RELATIVE PERCENT (BEAKER) 1 % 0-1 (test oyds=2878) POCT-GLUCOSE [id number] 23:01:00 Test Item Value Reference Range Comments POC-GLUCOSE METER (BEAKER) 411 mg/dL 70-110 Notified JORDON STAPLETON/TESTED AT [facility] (test suya=0482) [facility] [place] [facility] [address] POCT-GLUCOSE [id number] 18:29:00 Test Item Value Reference Range Comments POC-GLUCOSE METER (BEAKER) 216 mg/dL 70-110 TESTED AT [place] [address] [place] (test ohot=6230) [facility] [address] POCT-GLUCOSE [id number] 12:41:00 Test Item Value Reference Range Comments POC-GLUCOSE METER (BEAKER) > mg/dL 70-110 OUTSIDE MEASURING RANGETESTED AT (test woai=0674) [facility] [address] [facility] [address] HEMOGLOBIN [id number] 09:11:00 Test Item Value Reference Range Comments HEMOGLOBIN A1C (BEAKER) (test jwat=866) 13.8 % 4.3-6.1 POCT-GLUCOSE [id number] 08:12:00 Test Item Value Reference Range Comments POC-GLUCOSE METER (BEAKER) 72 mg/dL 70-110 TESTED AT [facility] [address] [facility] (test fbyg=1252) [facility] [address] [id number] 06:33:00 Test Item Value Reference Range Comments BLOOD UREA NITROGEN (BEAKER) (test ftbw=807) 13 mg/dL 7-21 [id number] 06:33:00 Test Item Value Reference Range Comments CREATININE (BEAKER) (test 1.39 mg/dL 0.57-1.25 zypv=400) EGFR (BEAKER) (test 56 mL/min/1.73 sq m ESTIMATED GFR IS NOT xvau=0311) ACCURATE CREATININE CLEARANCE IN PREDICTING GLOMERULAR FILTRATION RATE. ESTIMATED GFR IS NOT APPLICABLE FOR DIALYSIS PATIENTS. CBC W/PLT COUNT & AUTO [id number] 06:24:00 Test Item Value Reference Range Comments WHITE BLOOD CELL COUNT (BEAKER) (test pwmd=125) 10.9 K/ L 3.5-10.5 RED BLOOD CELL COUNT (BEAKER) (test etpp=050) 3.84 M/ L 3.93-5.22 HEMOGLOBIN (BEAKER) (test vwog=497) 10.0 GM/DL 11.2-15.7 HEMATOCRIT (BEAKER) (test sptq=768) 32.7 % 34.1-44.9 MEAN CORPUSCULAR VOLUME (BEAKER) (test boii=363) 85.2 fL 79.4-94.8 MEAN CORPUSCULAR HEMOGLOBIN (BEAKER) (test 26.0 pg 25.6-32.2 jgcy=128) MEAN CORPUSCULAR HEMOGLOBIN CONC (BEAKER) (test 30.6 GM/DL 32.2-35.5 ozbm=434) RED CELL DISTRIBUTION WIDTH (BEAKER) (test 14.9 % 11.7-14.4 tlrh=300) PLATELET COUNT (BEAKER) (test affr=472) 334 K/CU MM 150-450 MEAN PLATELET VOLUME (BEAKER) (test jssh=079) 11.3 fL 9.4-12.3 NUCLEATED RED BLOOD CELLS (BEAKER) (test 0 /100 WBC 0-0 hrvk=444) NEUTROPHILS RELATIVE PERCENT (BEAKER) (test 90 % vitu=422) LYMPHOCYTES RELATIVE PERCENT (BEAKER) (test 7 % dcym=823) MONOCYTES RELATIVE PERCENT (BEAKER) (test 2 % gild=657) EOSINOPHILS RELATIVE PERCENT (BEAKER) (test 0 % irut=421) BASOPHILS RELATIVE PERCENT (BEAKER) (test 0 % oekf=615) NEUTROPHILS ABSOLUTE COUNT (BEAKER) (test 9.77 K/ L 1.56-6.13 giyl=975) LYMPHOCYTES ABSOLUTE COUNT (BEAKER) (test 0.79 K/ L 1.18-3.74 dzrz=850) MONOCYTES ABSOLUTE COUNT (BEAKER) (test 0.25 K/ L 0.24-0.36 iwkc=140) EOSINOPHILS ABSOLUTE COUNT (BEAKER) (test 0.00 K/ L 0.04-0.36 djxn=945) BASOPHILS ABSOLUTE COUNT (BEAKER) (test 0.01 K/ L 0.01-0.08 iesw=314) IMMATURE GRANULOCYTES-RELATIVE PERCENT (BEAKER) 1 % 0-1 (test jgqf=4547) POCT-GLUCOSE [id number] 02:09:00 Test Item Value Reference Range Comments POC-GLUCOSE METER (BEAKER) 260 mg/dL 70-110 TESTED AT [address] (test btgz=2950) [facility] [address] RAD, CHEST, 1 VIEW, NON [id number] 20:00:00Reason for exam:->CHEST PAINIs the patient ?->UnknownShould [...] MDReport Verified Date/Time: 2017 20:00:46 Reading Location: [address] Reading Room KETONE, [id number] 18:36:00 Test Item Value Reference Range Comments KETONES, BLOOD (BEAKER) (test vaaj=4633) 0.1 mmol/L <0.4 BASIC METABOLIC [id number] 18:18:00 Test Item Value Reference Range Comments SODIUM (BEAKER) (test 132 meq/L 136-145 ixlu=950) POTASSIUM (BEAKER) (test 4.5 meq/L 3.5-5.1 yeao=115) CHLORIDE (BEAKER) (test 95 meq/L 98-107 ocuf=914) CO2 (BEAKER) (test 22 meq/L 22-29 uyys=692) BLOOD UREA NITROGEN 18 mg/dL 7-21 (BEAKER) (test ovao=081) CREATININE (BEAKER) (test 2.19 mg/dL 0.57-1.25 fvhs=248) GLUCOSE RANDOM (BEAKER) 431 mg/dL 70-105 (test tsgp=842) CALCIUM (BEAKER) (test 9.4 mg/dL 8.4-10.2 ursi=995) EGFR (BEAKER) (test 33 mL/min/1.73 sq m ESTIMATED GFR IS NOT dxhu=9906) ACCURATE CREATININE CLEARANCE IN PREDICTING GLOMERULAR FILTRATION RATE. ESTIMATED GFR IS NOT APPLICABLE FOR DIALYSIS PATIENTS. CBC W/PLT COUNT & AUTO [id number] 18:02:00 Test Item Value Reference Range Comments WHITE BLOOD CELL COUNT (BEAKER) (test ojmr=719) 13.1 K/ L 3.5-10.5 RED BLOOD CELL COUNT (BEAKER) (test mvoj=247) 4.58 M/ L 3.93-5.22 HEMOGLOBIN (BEAKER) (test wnwa=219) 11.9 GM/DL 11.2-15.7 HEMATOCRIT (BEAKER) (test smjx=384) 38.9 % 34.1-44.9 MEAN CORPUSCULAR VOLUME (BEAKER) (test fexw=038) 84.9 fL 79.4-94.8 MEAN CORPUSCULAR HEMOGLOBIN (BEAKER) (test 26.0 pg 25.6-32.2 kcqz=147) MEAN CORPUSCULAR HEMOGLOBIN CONC (BEAKER) (test 30.6 GM/DL 32.2-35.5 ehta=212) RED CELL DISTRIBUTION WIDTH (BEAKER) (test 14.7 % 11.7-14.4 mzso=995) PLATELET COUNT (BEAKER) (test dlhr=248) 385 K/CU MM 150-450 MEAN PLATELET VOLUME (BEAKER) (test fddt=210) 11.0 fL 9.4-12.3 NUCLEATED RED BLOOD CELLS (BEAKER) (test 0 /100 WBC 0-0 ixnp=556) NEUTROPHILS RELATIVE PERCENT (BEAKER) (test 95 % ohbt=946) LYMPHOCYTES RELATIVE PERCENT (BEAKER) (test 4 % hkrf=991) MONOCYTES RELATIVE PERCENT (BEAKER) (test 1 % pbte=189) EOSINOPHILS RELATIVE PERCENT (BEAKER) (test 0 % ikjr=151) BASOPHILS RELATIVE PERCENT (BEAKER) (test 0 % pwzh=276) NEUTROPHILS ABSOLUTE COUNT (BEAKER) (test 12.46 K/ L 1.56-6.13 uafj=354) LYMPHOCYTES ABSOLUTE COUNT (BEAKER) (test 0.53 K/ L 1.18-3.74 djop=075) MONOCYTES ABSOLUTE COUNT (BEAKER) (test 0.08 K/ L 0.24-0.36 lmgx=450) EOSINOPHILS ABSOLUTE COUNT (BEAKER) (test 0.00 K/ L 0.04-0.36 jsld=233) BASOPHILS ABSOLUTE COUNT (BEAKER) (test 0.01 K/ L 0.01-0.08 fsor=810) IMMATURE GRANULOCYTES-RELATIVE PERCENT (BEAKER) 0 % 0-1 (test wixj=9315) POCT-GLUCOSE [id number] 16:57:00 Test Item Value Reference Range Comments POC-GLUCOSE METER (BEAKER) 117 mg/dL 70-110 TESTED AT [address] (test ppzg=4408) [place] [address] POCT-GLUCOSE [id number] 16:56:00 Test Item Value Reference Range Comments POC-GLUCOSE METER (BEAKER) 62 mg/dL 70-110 Notified RN or MD Patient (test sxef=9645) refused repeat test/TESTED AT [place] [address] POCT-GLUCOSE [id number] 12:23:00 Test Item Value Reference Range Comments POC-GLUCOSE METER (BEAKER) 81 mg/dL 70-110 TESTED AT [address] (test dwcy=8553) [place] [address] POCT-GLUCOSE [id number] 09:36:00 Test Item Value Reference Range Comments POC-GLUCOSE METER (BEAKER) 239 mg/dL 70-110 TESTED AT [address] (test tzng=1063) [place] [address] BUN AND [id number] 07:03:00 Test Item Value Reference Range Comments BLOOD UREA NITROGEN 19 mg/dL 7-21 (BEAKER) (test etam=885) CREATININE (BEAKER) (test 0.71 mg/dL 0.57-1.25 xqaj=153) EGFR (BEAKER) (test 122 mL/min/1.73 sq m ESTIMATED GFR IS NOT zeao=0907) ACCURATE CREATININE CLEARANCE IN PREDICTING GLOMERULAR FILTRATION RATE. ESTIMATED GFR IS NOT APPLICABLE FOR DIALYSIS PATIENTS. POCT-GLUCOSE [id number] 17:46:00 Test Item Value Reference Range Comments POC-GLUCOSE METER (BEAKER) 147 mg/dL 70-110 TESTED AT [address] (test ffbx=4350) [place] [address] POCT-GLUCOSE [id number] 13:26:00 Test Item Value Reference Range Comments POC-GLUCOSE METER (BEAKER) 105 mg/dL 70-110 TESTED AT [address] (test tjxc=7207) [place] [address] POCT-GLUCOSE [id number] 07:56:00 Test Item Value Reference Range Comments POC-GLUCOSE METER (BEAKER) 207 mg/dL 70-110 TESTED AT [address] (test qjyu=5169) [place] [address] CBC W/PLT COUNT & AUTO [id number] 06:59:00 Test Item Value Reference Range Comments WHITE BLOOD CELL COUNT (BEAKER) (test zzgo=584) 8.4 K/ L 3.5-10.5 RED BLOOD CELL COUNT (BEAKER) (test abwt=669) 3.67 M/ L 3.93-5.22 HEMOGLOBIN (BEAKER) (test bvuq=766) 9.7 GM/DL 11.2-15.7 HEMATOCRIT (BEAKER) (test fjdk=825) 32.9 % 34.1-44.9 MEAN CORPUSCULAR VOLUME (BEAKER) (test gedl=861) 89.6 fL 79.4-94.8 MEAN CORPUSCULAR HEMOGLOBIN (BEAKER) (test 26.4 pg 25.6-32.2 zryu=593) MEAN CORPUSCULAR HEMOGLOBIN CONC (BEAKER) (test 29.5 GM/DL 32.2-35.5 shql=547) RED CELL DISTRIBUTION WIDTH (BEAKER) (test 19.4 % 11.7-14.4 twik=832) PLATELET COUNT (BEAKER) (test dujy=197) 410 K/CU MM 150-450 MEAN PLATELET VOLUME (BEAKER) (test qafr=485) 9.7 fL 9.4-12.3 NUCLEATED RED BLOOD CELLS (BEAKER) (test 0 /100 WBC 0-0 zdcv=449) NEUTROPHILS RELATIVE PERCENT (BEAKER) (test 53 % asda=827) LYMPHOCYTES RELATIVE PERCENT (BEAKER) (test 27 % yjok=800) MONOCYTES RELATIVE PERCENT (BEAKER) (test 10 % rgkd=181) EOSINOPHILS RELATIVE PERCENT (BEAKER) (test 10 % qrmb=058) BASOPHILS RELATIVE PERCENT (BEAKER) (test 1 % bffx=047) NEUTROPHILS ABSOLUTE COUNT (BEAKER) (test 4.48 K/ L 1.56-6.13 rlsx=973) LYMPHOCYTES ABSOLUTE COUNT (BEAKER) (test 2.27 K/ L 1.18-3.74 mfby=771) MONOCYTES ABSOLUTE COUNT (BEAKER) (test 0.80 K/ L 0.24-0.36 nthw=098) EOSINOPHILS ABSOLUTE COUNT (BEAKER) (test 0.81 K/ L 0.04-0.36 uspj=387) BASOPHILS ABSOLUTE COUNT (BEAKER) (test 0.04 K/ L 0.01-0.08 fyxx=427) IMMATURE GRANULOCYTES-RELATIVE PERCENT (BEAKER) 1 % 0-1 (test orqt=9346) BUN AND [id number] 06:42:00 Test Item Value Reference Range Comments BLOOD UREA NITROGEN 16 mg/dL 7-21 (BEAKER) (test upgx=520) CREATININE (BEAKER) (test 0.67 mg/dL 0.57-1.25 ksnt=770) EGFR (BEAKER) (test 130 mL/min/1.73 sq m ESTIMATED GFR IS NOT zifp=9264) ACCURATE CREATININE CLEARANCE IN PREDICTING GLOMERULAR FILTRATION RATE. ESTIMATED GFR IS NOT APPLICABLE FOR DIALYSIS PATIENTS. POCT-GLUCOSE [id number] 21:05:00 Test Item Value Reference Range Comments POC-GLUCOSE METER (BEAKER) 195 mg/dL 70-110 TESTED AT [address] (test ntda=8272) [place] [address] POCT-GLUCOSE [id number] 18:55:00 Test Item Value Reference Range Comments POC-GLUCOSE METER (BEAKER) 344 mg/dL 70-110 TESTED AT [address] (test wist=4849) [place] [address] POCT-GLUCOSE [id number] 12:20:00 Test Item Value Reference Range Comments POC-GLUCOSE METER (BEAKER) 166 mg/dL 70-110 TESTED AT [address] (test xjws=2666) [place] [address] POCT-GLUCOSE [id number] 11:34:00 Test Item Value Reference Range Comments POC-GLUCOSE METER (BEAKER) 68 mg/dL 70-110 Notified JORDON STAPLETON/TESTED AT [facility] (test ejli=8370) [address] [place] [address] BUN AND [id number] 10:24:00 Test Item Value Reference Range Comments BLOOD UREA NITROGEN 15 mg/dL 7-21 (BEAKER) (test foze=219) CREATININE (BEAKER) (test 0.64 mg/dL 0.57-1.25 wwhg=800) EGFR (BEAKER) (test 137 mL/min/1.73 sq m ESTIMATED GFR IS NOT qsyd=6331) ACCURATE CREATININE CLEARANCE IN PREDICTING GLOMERULAR FILTRATION RATE. ESTIMATED GFR IS NOT APPLICABLE FOR DIALYSIS PATIENTS. POCT-GLUCOSE [id number] 07:58:00 Test Item Value Reference Range Comments POC-GLUCOSE METER (BEAKER) 218 mg/dL 70-110 TESTED AT [address] (test ufct=9060) [facility] [address] POCT-GLUCOSE [id number] 22:10:00 Test Item Value Reference Range Comments POC-GLUCOSE METER (BEAKER) 140 mg/dL 70-110 TESTED AT [address] (test hygi=6439) [place] [address] POCT-GLUCOSE [id number] 20:51:00 Test Item Value Reference Range Comments POC-GLUCOSE METER (BEAKER) 182 mg/dL 70-110 TESTED AT [address] (test yykm=6096) [place] [address] POCT-GLUCOSE [id number] 12:49:00 Test Item Value Reference Range Comments POC-GLUCOSE METER (BEAKER) 81 mg/dL 70-110 TESTED AT [address] (test hyqk=3790) [place] [address] POCT-GLUCOSE [id number] 08:20:00 Test Item Value Reference Range Comments POC-GLUCOSE METER (BEAKER) 362 mg/dL 70-110 Notified RN or MD Patient (test jyvv=4905) refused repeat test/TESTED AT [place] [id number] BUN AND [id number] 06:16:00 Test Item Value Reference Range Comments BLOOD UREA NITROGEN 16 mg/dL 7-21 (BEAKER) (test yzcx=517) CREATININE (BEAKER) (test 0.76 mg/dL 0.57-1.25 zvto=270) EGFR (BEAKER) (test 112 mL/min/1.73 sq m ESTIMATED GFR IS NOT lwtu=7052) ACCURATE CREATININE CLEARANCE IN PREDICTING GLOMERULAR FILTRATION RATE. ESTIMATED GFR IS NOT APPLICABLE FOR DIALYSIS PATIENTS. CBC W/PLT COUNT & AUTO [id number] 06:13:00 Test Item Value Reference Range Comments WHITE BLOOD CELL COUNT (BEAKER) (test qwyx=441) 11.6 K/ L 3.5-10.5 RED BLOOD CELL COUNT (BEAKER) (test iezm=282) 3.59 M/ L 3.93-5.22 HEMOGLOBIN (BEAKER) (test ejvl=872) 9.5 GM/DL 11.2-15.7 HEMATOCRIT (BEAKER) (test gdlt=006) 32.5 % 34.1-44.9 MEAN CORPUSCULAR VOLUME (BEAKER) (test zhmh=768) 90.5 fL 79.4-94.8 MEAN CORPUSCULAR HEMOGLOBIN (BEAKER) (test 26.5 pg 25.6-32.2 kxnz=845) MEAN CORPUSCULAR HEMOGLOBIN CONC (BEAKER) (test 29.2 GM/DL 32.2-35.5 twfl=715) RED CELL DISTRIBUTION WIDTH (BEAKER) (test 19.6 % 11.7-14.4 ktrk=328) PLATELET COUNT (BEAKER) (test btux=099) 500 K/CU MM 150-450 MEAN PLATELET VOLUME (BEAKER) (test pfxg=211) 10.0 fL 9.4-12.3 NUCLEATED RED BLOOD CELLS (BEAKER) (test 0 /100 WBC 0-0 xogl=539) NEUTROPHILS RELATIVE PERCENT (BEAKER) (test 66 % ueel=205) LYMPHOCYTES RELATIVE PERCENT (BEAKER) (test 21 % nfkf=786) MONOCYTES RELATIVE PERCENT (BEAKER) (test 8 % tagq=908) EOSINOPHILS RELATIVE PERCENT (BEAKER) (test 6 % xugm=261) BASOPHILS RELATIVE PERCENT (BEAKER) (test 0 % cccu=968) NEUTROPHILS ABSOLUTE COUNT (BEAKER) (test 7.67 K/ L 1.56-6.13 tgal=130) LYMPHOCYTES ABSOLUTE COUNT (BEAKER) (test 2.39 K/ L 1.18-3.74 xwiv=877) MONOCYTES ABSOLUTE COUNT (BEAKER) (test 0.87 K/ L 0.24-0.36 fgtc=964) EOSINOPHILS ABSOLUTE COUNT (BEAKER) (test 0.65 K/ L 0.04-0.36 onnm=022) BASOPHILS ABSOLUTE COUNT (BEAKER) (test 0.02 K/ L 0.01-0.08 jhrv=065) IMMATURE GRANULOCYTES-RELATIVE PERCENT (BEAKER) 0 % 0-1 (test zlkv=5614) POCT-GLUCOSE [id number] 21:45:00 Test Item Value Reference Range Comments POC-GLUCOSE METER (BEAKER) 226 mg/dL 70-110 TESTED AT [facility] [address] [facility] (test kild=1476) [facility] [address] POCT-GLUCOSE [id number] 17:21:00 Test Item Value Reference Range Comments POC-GLUCOSE METER (BEAKER) 245 mg/dL 70-110 TESTED AT [place] [id number] [facility] (test zlgi=6787) [facility] [address] POCT-GLUCOSE [id number] 12:59:00 Test Item Value Reference Range Comments POC-GLUCOSE METER (BEAKER) 76 mg/dL 70-110 TESTED AT [address] (test qyae=2298) [facility] [address] POCT-GLUCOSE [id number] 08:21:00 Test Item Value Reference Range Comments POC-GLUCOSE METER (BEAKER) 88 mg/dL 70-110 TESTED AT [address] (test pvuc=1073) [facility] [address] BUN AND [id number] 05:56:00 Test Item Value Reference Range Comments BLOOD UREA NITROGEN 9 mg/dL 7-21 (BEAKER) (test hbcw=965) CREATININE (BEAKER) (test 0.74 mg/dL 0.57-1.25 rgnn=969) EGFR (BEAKER) (test 116 mL/min/1.73 sq m ESTIMATED GFR IS NOT fnhd=5768) ACCURATE CREATININE CLEARANCE IN PREDICTING GLOMERULAR FILTRATION RATE. ESTIMATED GFR IS NOT APPLICABLE FOR DIALYSIS PATIENTS. CBC W/PLT COUNT & AUTO [id number] 05:30:00 Test Item Value Reference Range Comments WHITE BLOOD CELL COUNT (BEAKER) (test rngo=430) 14.2 K/ L 3.5-10.5 RED BLOOD CELL COUNT (BEAKER) (test bogw=798) 3.82 M/ L 3.93-5.22 HEMOGLOBIN (BEAKER) (test yjli=924) 10.2 GM/DL 11.2-15.7 HEMATOCRIT (BEAKER) (test cssz=403) 34.0 % 34.1-44.9 MEAN CORPUSCULAR VOLUME (BEAKER) (test mcof=133) 89.0 fL 79.4-94.8 MEAN CORPUSCULAR HEMOGLOBIN (BEAKER) (test 26.7 pg 25.6-32.2 ymyz=147) MEAN CORPUSCULAR HEMOGLOBIN CONC (BEAKER) (test 30.0 GM/DL 32.2-35.5 xixp=801) RED CELL DISTRIBUTION WIDTH (BEAKER) (test 19.7 % 11.7-14.4 jzrg=922) PLATELET COUNT (BEAKER) (test xvon=002) 546 K/CU MM 150-450 MEAN PLATELET VOLUME (BEAKER) (test qomz=937) 9.9 fL 9.4-12.3 NUCLEATED RED BLOOD CELLS (BEAKER) (test 0 /100 WBC 0-0 lfic=841) NEUTROPHILS RELATIVE PERCENT (BEAKER) (test 68 % nfgp=019) LYMPHOCYTES RELATIVE PERCENT (BEAKER) (test 19 % mvhj=536) MONOCYTES RELATIVE PERCENT (BEAKER) (test 7 % otkv=673) EOSINOPHILS RELATIVE PERCENT (BEAKER) (test 5 % hyoe=936) BASOPHILS RELATIVE PERCENT (BEAKER) (test 0 % chou=234) NEUTROPHILS ABSOLUTE COUNT (BEAKER) (test 9.65 K/ L 1.56-6.13 ngwp=271) LYMPHOCYTES ABSOLUTE COUNT (BEAKER) (test 2.69 K/ L 1.18-3.74 rimr=533) MONOCYTES ABSOLUTE COUNT (BEAKER) (test 1.01 K/ L 0.24-0.36 emka=535) EOSINOPHILS ABSOLUTE COUNT (BEAKER) (test 0.72 K/ L 0.04-0.36 wocz=023) BASOPHILS ABSOLUTE COUNT (BEAKER) (test 0.06 K/ L 0.01-0.08 iybz=240) IMMATURE GRANULOCYTES-RELATIVE PERCENT (BEAKER) 1 % 0-1 (test kyiv=1297) POCT-GLUCOSE [id number] 21:20:00 Test Item Value Reference Range Comments POC-GLUCOSE METER (BEAKER) 211 mg/dL 70-110 TESTED AT [address] (test invn=0914) [place] [address] POCT-GLUCOSE [id number] 17:25:00 Test Item Value Reference Range Comments POC-GLUCOSE METER (BEAKER) 152 mg/dL 70-110 TESTED AT [address] (test nptw=6354) [place] [address] POCT-GLUCOSE [id number] 13:32:00 Test Item Value Reference Range Comments POC-GLUCOSE METER (BEAKER) 81 mg/dL 70-110 TESTED AT [address] (test yehl=8860) [place] [address] BUN AND [id number] 10:16:00 Test Item Value Reference Range Comments BLOOD UREA NITROGEN 17 mg/dL 7-21 (BEAKER) (test udgv=488) CREATININE (BEAKER) (test 0.72 mg/dL 0.57-1.25 aqkx=563) EGFR (BEAKER) (test 120 mL/min/1.73 sq m ESTIMATED GFR IS NOT hyon=2348) ACCURATE CREATININE CLEARANCE IN PREDICTING GLOMERULAR FILTRATION RATE. ESTIMATED GFR IS NOT APPLICABLE FOR DIALYSIS PATIENTS. CBC W/PLT COUNT & AUTO [id number] 09:23:00 Test Item Value Reference Range Comments WHITE BLOOD CELL COUNT (BEAKER) (test trti=320) 11.7 K/ L 3.5-10.5 RED BLOOD CELL COUNT (BEAKER) (test erbu=848) 3.70 M/ L 3.93-5.22 HEMOGLOBIN (BEAKER) (test wucj=594) 9.7 GM/DL 11.2-15.7 HEMATOCRIT (BEAKER) (test dcvu=337) 32.7 % 34.1-44.9 MEAN CORPUSCULAR VOLUME (BEAKER) (test lzss=191) 88.4 fL 79.4-94.8 MEAN CORPUSCULAR HEMOGLOBIN (BEAKER) (test 26.2 pg 25.6-32.2 zgku=382) MEAN CORPUSCULAR HEMOGLOBIN CONC (BEAKER) (test 29.7 GM/DL 32.2-35.5 hxbw=265) RED CELL DISTRIBUTION WIDTH (BEAKER) (test 19.5 % 11.7-14.4 ngmt=465) PLATELET COUNT (BEAKER) (test lbdb=758) 519 K/CU MM 150-450 MEAN PLATELET VOLUME (BEAKER) (test icdm=508) 9.9 fL 9.4-12.3 NUCLEATED RED BLOOD CELLS (BEAKER) (test 0 /100 WBC 0-0 funz=550) NEUTROPHILS RELATIVE PERCENT (BEAKER) (test 60 % bysw=604) LYMPHOCYTES RELATIVE PERCENT (BEAKER) (test 26 % gqvm=405) MONOCYTES RELATIVE PERCENT (BEAKER) (test 7 % yrjw=171) EOSINOPHILS RELATIVE PERCENT (BEAKER) (test 6 % kpvg=695) BASOPHILS RELATIVE PERCENT (BEAKER) (test 0 % xtec=393) NEUTROPHILS ABSOLUTE COUNT (BEAKER) (test 6.97 K/ L 1.56-6.13 xwbk=472) LYMPHOCYTES ABSOLUTE COUNT (BEAKER) (test 3.03 K/ L 1.18-3.74 dkbx=682) MONOCYTES ABSOLUTE COUNT (BEAKER) (test 0.86 K/ L 0.24-0.36 wnot=504) EOSINOPHILS ABSOLUTE COUNT (BEAKER) (test 0.71 K/ L 0.04-0.36 bfiz=277) BASOPHILS ABSOLUTE COUNT (BEAKER) (test 0.04 K/ L 0.01-0.08 bqlx=230) IMMATURE GRANULOCYTES-RELATIVE PERCENT (BEAKER) 1 % 0-1 (test oqdq=3164) POCT-GLUCOSE [id number] 08:05:00 Test Item Value Reference Range Comments POC-GLUCOSE METER (BEAKER) 245 mg/dL 70-110 TESTED AT [address] (test auzj=5812) [place] [address] POCT-GLUCOSE [id number] 21:42:00 Test Item Value Reference Range Comments POC-GLUCOSE METER (BEAKER) 163 mg/dL 70-110 TESTED AT [address] (test fmjb=8781) [place] [address] POCT-GLUCOSE [id number] 18:57:00 Test Item Value Reference Range Comments POC-GLUCOSE METER (BEAKER) 65 mg/dL 70-110 Will Repeat Test/TESTED AT (test gtor=5200) [address] [address] POCT-GLUCOSE [id number] 14:12:00 Test Item Value Reference Range Comments POC-GLUCOSE METER (BEAKER) 72 mg/dL 70-110 TESTED AT [address] (test aeyf=4985) [place] [address] POCT-GLUCOSE [id number] 10:46:00 Test Item Value Reference Range Comments POC-GLUCOSE METER (BEAKER) 361 mg/dL 70-110 Will Repeat Test/TESTED AT (test bgjb=1702) [address] [address] BASIC METABOLIC [id number] 10:11:00 Test Item Value Reference Range Comments SODIUM (BEAKER) (test 138 meq/L 136-145 atlk=846) POTASSIUM (BEAKER) (test 5.1 meq/L 3.5-5.1 xplw=017) CHLORIDE (BEAKER) (test 107 meq/L 98-107 bntr=661) CO2 (BEAKER) (test 24 meq/L 22-29 jnhv=283) BLOOD UREA NITROGEN 9 mg/dL 7-21 (BEAKER) (test zlgj=319) CREATININE (BEAKER) (test 0.63 mg/dL 0.57-1.25 tuqc=338) GLUCOSE RANDOM (BEAKER) 107 mg/dL 70-105 (test funi=053) CALCIUM (BEAKER) (test 7.4 mg/dL 8.4-10.2 xtlo=124) EGFR (BEAKER) (test 140 mL/min/1.73 sq m ESTIMATED GFR IS NOT zggl=0070) ACCURATE CREATININE CLEARANCE IN PREDICTING GLOMERULAR FILTRATION RATE. ESTIMATED GFR IS NOT APPLICABLE FOR DIALYSIS PATIENTS. CBC W/PLT COUNT & AUTO [id number] 09:22:00 Test Item Value Reference Range Comments WHITE BLOOD CELL COUNT (BEAKER) (test minu=782) 14.8 K/ L 3.5-10.5 RED BLOOD CELL COUNT (BEAKER) (test rmcx=860) 3.65 M/ L 3.93-5.22 HEMOGLOBIN (BEAKER) (test nrgl=533) 9.9 GM/DL 11.2-15.7 HEMATOCRIT (BEAKER) (test pplx=619) 32.5 % 34.1-44.9 MEAN CORPUSCULAR VOLUME (BEAKER) (test dgtj=449) 89.0 fL 79.4-94.8 MEAN CORPUSCULAR HEMOGLOBIN (BEAKER) (test 27.1 pg 25.6-32.2 rwuu=219) MEAN CORPUSCULAR HEMOGLOBIN CONC (BEAKER) (test 30.5 GM/DL 32.2-35.5 gzyn=786) RED CELL DISTRIBUTION WIDTH (BEAKER) (test 19.4 % 11.7-14.4 kfhi=313) PLATELET COUNT (BEAKER) (test vaci=230) 490 K/CU MM 150-450 MEAN PLATELET VOLUME (BEAKER) (test imed=487) 9.6 fL 9.4-12.3 NUCLEATED RED BLOOD CELLS (BEAKER) (test 0 /100 WBC 0-0 hoxm=304) NEUTROPHILS RELATIVE PERCENT (BEAKER) (test 64 % xvky=345) LYMPHOCYTES RELATIVE PERCENT (BEAKER) (test 24 % bpex=734) MONOCYTES RELATIVE PERCENT (BEAKER) (test 7 % vztx=498) EOSINOPHILS RELATIVE PERCENT (BEAKER) (test 5 % ptrd=838) BASOPHILS RELATIVE PERCENT (BEAKER) (test 0 % nkpn=154) NEUTROPHILS ABSOLUTE COUNT (BEAKER) (test 9.41 K/ L 1.56-6.13 fqdt=026) LYMPHOCYTES ABSOLUTE COUNT (BEAKER) (test 3.48 K/ L 1.18-3.74 jnni=042) MONOCYTES ABSOLUTE COUNT (BEAKER) (test 1.04 K/ L 0.24-0.36 escb=606) EOSINOPHILS ABSOLUTE COUNT (BEAKER) (test 0.70 K/ L 0.04-0.36 najg=774) BASOPHILS ABSOLUTE COUNT (BEAKER) (test 0.03 K/ L 0.01-0.08 oifg=218) IMMATURE GRANULOCYTES-RELATIVE PERCENT (BEAKER) 1 % 0-1 (test fjar=4322) POCT-GLUCOSE [id number] 22:41:00 Test Item Value Reference Range Comments POC-GLUCOSE METER (BEAKER) 118 mg/dL 70-110 TESTED AT [address] (test nfkm=3926) [place] [address] [id number] 17:38:00 Test Item Value Reference Range Comments POTASSIUM (BEAKER) (test dnzg=671) 5.4 meq/L 3.5-5.1 POCT-GLUCOSE [id number] 17:31:00 Test Item Value Reference Range Comments POC-GLUCOSE METER (BEAKER) 111 mg/dL 70-110 TESTED AT [address] (test ybpx=9170) [place] [address] POCT-GLUCOSE [id number] 12:16:00 Test Item Value Reference Range Comments POC-GLUCOSE METER (BEAKER) 186 mg/dL 70-110 TESTED AT [address] (test vvth=3567) [place] [id number] POCT-GLUCOSE [id number] 09:29:00 Test Item Value Reference Range Comments POC-GLUCOSE METER (BEAKER) 159 mg/dL 70-110 TESTED AT [address] (test yuzo=4350) [place] [address] POCT-GLUCOSE [id number] 08:59:00 Test Item Value Reference Range Comments POC-GLUCOSE METER (BEAKER) 29 mg/dL 70-110 Will Repeat Test/TESTED AT (test qpld=5710) [place] [address] POCT-GLUCOSE [id number] 06:52:00 Test Item Value Reference Range Comments POC-GLUCOSE METER (BEAKER) 492 mg/dL 70-110 Notified JORDON STAPLETON/TESTED AT [facility] (test lsvf=1979) [address] [facility] [address] COMPREHENSIVE METABOLIC [id number] 06:27:00 Test Item Value Reference Range Comments TOTAL PROTEIN (BEAKER) 6.4 gm/dL 6.0-8.3 (test hxmj=876) ALBUMIN (BEAKER) (test 2.8 g/dL 3.5-5.0 zxek=6251) ALKALINE PHOSPHATASE 139 U/L 40-150 (BEAKER) (test gmzg=229) BILIRUBIN TOTAL (BEAKER) 0.1 mg/dL 0.2-1.2 (test stfi=375) SODIUM (BEAKER) (test 134 meq/L 136-145 pgjo=234) POTASSIUM (BEAKER) (test 5.3 meq/L 3.5-5.1 vicb=015) CHLORIDE (BEAKER) (test 96 meq/L 98-107 lqgm=476) CO2 (BEAKER) (test 29 meq/L 22-29 lyqv=129) BLOOD UREA NITROGEN 14 mg/dL 7-21 (BEAKER) (test fgsu=129) CREATININE (BEAKER) (test 0.79 mg/dL 0.57-1.25 lpyf=854) GLUCOSE RANDOM (BEAKER) 435 mg/dL 70-105 (test mbhk=359) CALCIUM (BEAKER) (test 8.4 mg/dL 8.4-10.2 oyvy=496) AST (SGOT) (BEAKER) (test 54 U/L 5-34 ewyy=575) ALT (SGPT) (BEAKER) (test 75 U/L 6-55 apge=728) EGFR (BEAKER) (test 107 mL/min/1.73 sq ESTIMATED GFR IS NOT suhp=3653) m ACCURATE CREATININE CLEARANCE IN PREDICTING GLOMERULAR FILTRATION RATE. ESTIMATED GFR IS NOT APPLICABLE FOR DIALYSIS PATIENTS. CBC (HEMOGRAM ONLY)2018-02-28 05:50:00 Test Item Value Reference Range Comments WHITE BLOOD CELL COUNT (BEAKER) (test fxxk=887) 16.3 K/ L 3.5-10.5 RED BLOOD CELL COUNT (BEAKER) (test kdbt=310) 3.49 M/ L 3.93-5.22 HEMOGLOBIN (BEAKER) (test xuco=709) 9.2 GM/DL 11.2-15.7 HEMATOCRIT (BEAKER) (test gonq=347) 31.2 % 34.1-44.9 MEAN CORPUSCULAR VOLUME (BEAKER) (test wiuv=482) 89.4 fL 79.4-94.8 MEAN CORPUSCULAR HEMOGLOBIN (BEAKER) (test 26.4 pg 25.6-32.2 wokf=945) MEAN CORPUSCULAR HEMOGLOBIN CONC (BEAKER) (test 29.5 GM/DL 32.2-35.5 xifs=892) RED CELL DISTRIBUTION WIDTH (BEAKER) (test 18.7 % 11.7-14.4 ixrg=492) PLATELET COUNT (BEAKER) (test svad=793) 473 K/CU MM 150-450 MEAN PLATELET VOLUME (BEAKER) (test qaqt=146) 9.6 fL 9.4-12.3 NUCLEATED RED BLOOD CELLS (BEAKER) (test 0 /100 WBC 0-0 hpms=395) POCT-GLUCOSE [id number] 17:54:00 Test Item Value Reference Range Comments POC-GLUCOSE METER (BEAKER) 386 mg/dL 70-110 Notified RN or MD Patient (test tbpo=5490) refused repeat test/TESTED AT [place] [address] POCT-GLUCOSE [id number] 12:41:00 Test Item Value Reference Range Comments POC-GLUCOSE METER (BEAKER) 104 mg/dL 70-110 TESTED AT [address] (test brub=6989) [place] [address] POCT-GLUCOSE [id number] 07:57:00 Test Item Value Reference Range Comments POC-GLUCOSE METER (BEAKER) 140 mg/dL 70-110 TESTED AT [address] (test ersk=2231) [place] [address] BASIC METABOLIC [id number] 05:36:00 Test Item Value Reference Range Comments SODIUM (BEAKER) (test 138 meq/L 136-145 lcfe=650) POTASSIUM (BEAKER) (test 4.7 meq/L 3.5-5.1 qomi=330) CHLORIDE (BEAKER) (test 97 meq/L 98-107 xsjw=727) CO2 (BEAKER) (test 33 meq/L 22-29 pvju=441) BLOOD UREA NITROGEN 15 mg/dL 7-21 (BEAKER) (test wlad=205) CREATININE (BEAKER) (test 0.64 mg/dL 0.57-1.25 mynp=303) GLUCOSE RANDOM (BEAKER) 135 mg/dL 70-105 (test vahx=437) CALCIUM (BEAKER) (test 8.6 mg/dL 8.4-10.2 krni=934) EGFR (BEAKER) (test 137 mL/min/1.73 sq m ESTIMATED GFR IS NOT mclb=6891) ACCURATE CREATININE CLEARANCE IN PREDICTING GLOMERULAR FILTRATION RATE. ESTIMATED GFR IS NOT APPLICABLE FOR DIALYSIS PATIENTS. CBC (HEMOGRAM ONLY)2018-02-27 05:15:00 Test Item Value Reference Range Comments WHITE BLOOD CELL COUNT (BEAKER) (test zgju=125) 13.8 K/ L 3.5-10.5 RED BLOOD CELL COUNT (BEAKER) (test wpor=210) 3.46 M/ L 3.93-5.22 HEMOGLOBIN (BEAKER) (test sklq=747) 9.0 GM/DL 11.2-15.7 HEMATOCRIT (BEAKER) (test qpjf=624) 30.3 % 34.1-44.9 MEAN CORPUSCULAR VOLUME (BEAKER) (test ngwa=772) 87.6 fL 79.4-94.8 MEAN CORPUSCULAR HEMOGLOBIN (BEAKER) (test 26.0 pg 25.6-32.2 odzy=430) MEAN CORPUSCULAR HEMOGLOBIN CONC (BEAKER) (test 29.7 GM/DL 32.2-35.5 uodj=829) RED CELL DISTRIBUTION WIDTH (BEAKER) (test 18.4 % 11.7-14.4 rdod=301) PLATELET COUNT (BEAKER) (test wpjx=300) 473 K/CU MM 150-450 MEAN PLATELET VOLUME (BEAKER) (test ktky=825) 9.6 fL 9.4-12.3 NUCLEATED RED BLOOD CELLS (BEAKER) (test 0 /100 WBC 0-0 aiwt=657) POCT-GLUCOSE [id number] 21:46:00 Test Item Value Reference Range Comments POC-GLUCOSE METER (BEAKER) 117 mg/dL 70-110 TESTED AT [address] (test oasu=0710) [facility] [address] POCT-GLUCOSE [id number] 17:44:00 Test Item Value Reference Range Comments POC-GLUCOSE METER (BEAKER) 142 mg/dL 70-110 TESTED AT [address] (test brmg=8500) [facility] [address] POCT-GLUCOSE [id number] 12:49:00 Test Item Value Reference Range Comments POC-GLUCOSE METER (BEAKER) 420 mg/dL 70-110 TESTED AT [address] (test dvtr=7584) [facility] [address] POCT-GLUCOSE [id number] 08:52:00 Test Item Value Reference Range Comments POC-GLUCOSE METER (BEAKER) 381 mg/dL 70-110 TESTED AT [address] (test guxr=5231) [facility] [address] BASIC METABOLIC [id number] 05:59:00 Test Item Value Reference Range Comments SODIUM (BEAKER) (test 141 meq/L 136-145 ymby=267) POTASSIUM (BEAKER) (test 4.0 meq/L 3.5-5.1 uzui=234) CHLORIDE (BEAKER) (test 103 meq/L 98-107 aipe=473) CO2 (BEAKER) (test 26 meq/L 22-29 aznb=980) BLOOD UREA NITROGEN 14 mg/dL 7-21 (BEAKER) (test oemr=005) CREATININE (BEAKER) (test 0.68 mg/dL 0.57-1.25 xahw=134) GLUCOSE RANDOM (BEAKER) 181 mg/dL 70-105 (test fiqj=804) CALCIUM (BEAKER) (test 8.3 mg/dL 8.4-10.2 zaqz=028) EGFR (BEAKER) (test 128 mL/min/1.73 sq m ESTIMATED GFR IS NOT drkc=9519) ACCURATE CREATININE CLEARANCE IN PREDICTING GLOMERULAR FILTRATION RATE. ESTIMATED GFR IS NOT APPLICABLE FOR DIALYSIS PATIENTS. CBC (HEMOGRAM ONLY)2018-02-26 05:02:00 Test Item Value Reference Range Comments WHITE BLOOD CELL COUNT (BEAKER) (test oqdk=400) 13.4 K/ L 3.5-10.5 RED BLOOD CELL COUNT (BEAKER) (test tigm=522) 3.36 M/ L 3.93-5.22 HEMOGLOBIN (BEAKER) (test qnsi=448) 9.0 GM/DL 11.2-15.7 HEMATOCRIT (BEAKER) (test foyv=960) 29.6 % 34.1-44.9 MEAN CORPUSCULAR VOLUME (BEAKER) (test wful=781) 88.1 fL 79.4-94.8 MEAN CORPUSCULAR HEMOGLOBIN (BEAKER) (test 26.8 pg 25.6-32.2 thxz=566) MEAN CORPUSCULAR HEMOGLOBIN CONC (BEAKER) (test 30.4 GM/DL 32.2-35.5 iukl=594) RED CELL DISTRIBUTION WIDTH (BEAKER) (test 17.9 % 11.7-14.4 rwvj=396) PLATELET COUNT (BEAKER) (test hzgr=919) 423 K/CU MM 150-450 MEAN PLATELET VOLUME (BEAKER) (test kewz=656) 9.9 fL 9.4-12.3 NUCLEATED RED BLOOD CELLS (BEAKER) (test 0 /100 WBC 0-0 pmec=907) POCT-GLUCOSE [id number] 23:16:00 Test Item Value Reference Range Comments POC-GLUCOSE METER (BEAKER) 146 mg/dL 70-110 TESTED AT [address] (test thip=3432) [place] [id number] POCT-GLUCOSE [id number] 19:07:00 Test Item Value Reference Range Comments POC-GLUCOSE METER (BEAKER) 268 mg/dL 70-110 TESTED AT [address] (test txpc=4536) [facility] [address] POCT-GLUCOSE [id number] 15:33:00 Test Item Value Reference Range Comments POC-GLUCOSE METER (BEAKER) 288 mg/dL 70-110 TESTED AT [address] (test pxxw=5556) [facility] [address] POCT-GLUCOSE [id number] 15:17:00 Test Item Value Reference Range Comments POC-GLUCOSE METER (BEAKER) 79 mg/dL 70-110 TESTED AT [address] (test oxya=1951) [facility] [address] POCT-GLUCOSE [id number] 12:53:00 Test Item Value Reference Range Comments POC-GLUCOSE METER (BEAKER) 48 mg/dL 70-110 Patient on insulin Drip/TESTED (test iqrt=2102) AT [place] [address] [facility] [address] RAD, ABDOMEN/KUB, 1 VIEW [id number] 08:30:00Reason for exam:->Monitor constipationFINAL REPORT Chest one view compared to February Discussion: There is moderate retained feces overall similar in appearance. No evidence of bowel distention. No evidence of free intraperitoneal air. No concerning calcification. Signed: Flip Choe Verified Date/Time: 02/25/2018 08:30:00 Reading Location: [facility] Reading Room Electronically signed by: FLIP CHOE M.D. on 01/2018 08:30 AMPOCT-GLUCOSE [id number] 08:15:00 Test Item Value Reference Range Comments POC-GLUCOSE METER (Bread) 83 mg/dL 70-110 TESTED AT [place] [id number] [facility] (test riec=5030) [facility] [address] CF RESPIRATORY [id number] 00:03:00 Test Item Value Reference Range Comments CULTURE (Bread) (test PSEUDOMONAS 3+ Pseudomonas gjww=2891) AERUGINOSA aeruginosa (MUCOID-PHENOTYPE) (Mucoid-phenotype) Amikacin (test code=1) Susceptible 0-16 , Resistant <0 or >16 Aztreonam (test Susceptible 0-8 , code=32) Resistant <0 or >8 Cefepime (test code=51) Susceptible 0-8 , Resistant <0 or >8 Ceftazidime (test Susceptible 0-8 , code=27) Resistant <0 or >8 Ciprofloxacin (test Susceptible 0-1 , code=7) Resistant <0 or >1 Doripenem (test Susceptible 0-2 , cume=284) Resistant <0 or >2 Gentamicin (test Susceptible [...] >4 CULTURE (BEAKER) (test PSEUDOMONAS 3+ Pseudomonas dttl=6141) AERUGINOSA aeruginosa (MUCOID-PHENOTYPE) (Mucoid-phenotype)of a second type Amikacin (test code=1) Susceptible 0-16 , Resistant <0 or >16 Aztreonam (test Susceptible 0-8 , code=32) Resistant <0 or >8 Cefepime (test code=51) Susceptible 0-8 , Resistant <0 or >8 Ceftazidime (test Susceptible 0-8 , code=27) Resistant <0 or >8 Ciprofloxacin (test Susceptible 0-1 , code=7) Resistant <0 or >1 Doripenem (test Susceptible 0-2 , zaar=634) Resistant <0 or >2 Gentamicin (test Susceptible [...] >4 CULTURE (BEAKER) (test PSEUDOMONAS 2+ Pseudomonas brnj=4207) AERUGINOSA aeruginosaof a third type Amikacin (test code=1) Susceptible 0-16 , Resistant <0 or >16 Aztreonam (test Susceptible 0-8 , code=32) Resistant <0 or >8 Cefepime (test code=51) Susceptible 0-8 , Resistant <0 or >8 Ceftazidime (test Susceptible 0-8 , code=27) Resistant <0 or >8 Ciprofloxacin (test Susceptible 0-1 , code=7) Resistant <0 or >1 Doripenem (test Susceptible 0-2 , fomr=580) Resistant <0 or >2 Gentamicin (test Susceptible [...] or >4 3+ Normal respiratory derick presentPOCT-GLUCOSE [id number] 21:18:00 Test Item Value Reference Range Comments POC-GLUCOSE METER (BEAKER) 311 mg/dL 70-110 TESTED AT [address] (test pupx=7548) [place] [id number] POCT-GLUCOSE [id number] 17:13:00 Test Item Value Reference Range Comments POC-GLUCOSE METER (BEAKER) 319 mg/dL 70-110 TESTED AT [address] (test ebdf=2704) [place] [address] POCT-GLUCOSE [id number] 12:28:00 Test Item Value Reference Range Comments POC-GLUCOSE METER (BEAKER) 415 mg/dL 70-110 Notified JORDON STAPLETON/TESTED AT [facility] (test wozr=4766) [address] [place] [address] BLOOD [id number] 06:00:00 Test Item Value Reference Range Comments CULTURE (BEAKER) (test aryp=6490) No growth in 5 days BLOOD [id number] 06:00:00 Test Item Value Reference Range Comments CULTURE (BEAKER) (test mgvv=8712) No growth in 5 days LACTIC ACID, VENOUS, WHOLE [id number] 05:46:00 Test Item Value Reference Range Comments LACTATE BLOOD VENOUS (2) (BEAKER) (test 1.0 mmol/L 0.5-2.2 rjwc=0099) Effective 02/26/2016: Units/Reference Range ChangeNew: 0.5-2.2 mmol/L Previous: 5 -20 mg/dLBASIC METABOLIC [id number] 05:41:00 Test Item Value Reference Range Comments SODIUM (BEAKER) (test 135 meq/L 136-145 ohxw=313) POTASSIUM (BEAKER) (test 4.8 meq/L 3.5-5.1 hbvb=880) CHLORIDE (BEAKER) (test 100 meq/L 98-107 fzzx=374) CO2 (BEAKER) (test 28 meq/L 22-29 etox=794) BLOOD UREA NITROGEN 27 mg/dL 7-21 (BEAKER) (test ksns=005) CREATININE (BEAKER) (test 0.78 mg/dL 0.57-1.25 plot=704) GLUCOSE RANDOM (BEAKER) 309 mg/dL 70-105 (test vhaq=599) CALCIUM (BEAKER) (test 8.8 mg/dL 8.4-10.2 qtkq=454) EGFR (BEAKER) (test 109 mL/min/1.73 sq m ESTIMATED GFR IS NOT hana=7200) ACCURATE CREATININE CLEARANCE IN PREDICTING GLOMERULAR FILTRATION RATE. ESTIMATED GFR IS NOT APPLICABLE FOR DIALYSIS PATIENTS. CBC W/PLT COUNT & AUTO [id number] 05:27:00 Test Item Value Reference Range Comments WHITE BLOOD CELL COUNT (BEAKER) (test ztmo=361) 19.9 K/ L 3.5-10.5 RED BLOOD CELL COUNT (BEAKER) (test yxxf=923) 3.20 M/ L 3.93-5.22 HEMOGLOBIN (BEAKER) (test slby=497) 8.3 GM/DL 11.2-15.7 HEMATOCRIT (BEAKER) (test csha=305) 27.7 % 34.1-44.9 MEAN CORPUSCULAR VOLUME (BEAKER) (test wnwd=326) 86.6 fL 79.4-94.8 MEAN CORPUSCULAR HEMOGLOBIN (BEAKER) (test 25.9 pg 25.6-32.2 qjuz=485) MEAN CORPUSCULAR HEMOGLOBIN CONC (BEAKER) (test 30.0 GM/DL 32.2-35.5 nutu=327) RED CELL DISTRIBUTION WIDTH (BEAKER) (test 16.7 % 11.7-14.4 nskp=391) PLATELET COUNT (BEAKER) (test ilzk=885) 320 K/CU MM 150-450 MEAN PLATELET VOLUME (BEAKER) (test pgem=942) 10.8 fL 9.4-12.3 NUCLEATED RED BLOOD CELLS (BEAKER) (test 0 /100 WBC 0-0 jsel=348) NEUTROPHILS RELATIVE PERCENT (BEAKER) (test 79 % fung=710) LYMPHOCYTES RELATIVE PERCENT (BEAKER) (test 13 % yucp=982) MONOCYTES RELATIVE PERCENT (BEAKER) (test 5 % jebe=091) EOSINOPHILS RELATIVE PERCENT (BEAKER) (test 1 % gimb=110) BASOPHILS RELATIVE PERCENT (BEAKER) (test 0 % ofyt=129) NEUTROPHILS ABSOLUTE COUNT (BEAKER) (test 15.63 K/ L 1.56-6.13 thsa=140) LYMPHOCYTES ABSOLUTE COUNT (BEAKER) (test 2.50 K/ L 1.18-3.74 svmt=650) MONOCYTES ABSOLUTE COUNT (BEAKER) (test 1.03 K/ L 0.24-0.36 rzli=160) EOSINOPHILS ABSOLUTE COUNT (BEAKER) (test 0.25 K/ L 0.04-0.36 cwnv=254) BASOPHILS ABSOLUTE COUNT (BEAKER) (test 0.04 K/ L 0.01-0.08 tngz=908) IMMATURE GRANULOCYTES-RELATIVE PERCENT (BEAKER) 2 % 0-1 (test sipa=1468) POCT-GLUCOSE [id number] 21:47:00 Test Item Value Reference Range Comments POC-GLUCOSE METER (BEAKER) 258 mg/dL 70-110 TESTED AT [address] (test lsep=5370) [place] [address] POCT-GLUCOSE [id number] 17:44:00 Test Item Value Reference Range Comments POC-GLUCOSE METER (BEAKER) 151 mg/dL 70-110 TESTED AT [address] (test hzpn=8173) [place] [address] RAD, ABDOMEN/KUB, 1 VIEW [id number] 15:48:00Reason for exam:->eval for ileus vs obstructionFINAL REPORT Two abdomen images compared to February 20, 2018 Discussion: Moderate retained feces. No evidence of small bowel distention. No evidence of free intraperitoneal air. Regional bones are unremarkable. No concerning calcification. Signed: Flip Choe Verified Date/Time: 02/23/2018 15:48:56 Reading Location: [facility] B1 [id number] Consult Reading Room Electronicallysigned by: FLIP CHOE M.D. on 02/23/2018 03: 48 PMPOCT-GLUCOSE [id number] 12:11:00 Test Item Value Reference Range Comments POC-GLUCOSE METER (BEAKER) 479 mg/dL 70-110 TESTED AT [address] (test tciq=8768) [facility] [address] POCT-GLUCOSE [id number] 08:30:00 Test Item Value Reference Range Comments POC-GLUCOSE METER (BEAKER) > mg/dL 70-110 OUTSIDE MEASURING RANGENotified RN (test wbko=1691) /TESTED AT [facility] [address] [facility] [address] BASIC METABOLIC [id number] 05:51:00 Test Item Value Reference Range Comments SODIUM (BEAKER) (test 134 meq/L 136-145 qtky=735) POTASSIUM (BEAKER) (test 5.1 meq/L 3.5-5.1 mngp=708) CHLORIDE (BEAKER) (test 98 meq/L 98-107 ldyv=983) CO2 (BEAKER) (test 28 meq/L 22-29 skza=387) BLOOD UREA NITROGEN 21 mg/dL 7-21 (BEAKER) (test tiil=891) CREATININE (BEAKER) (test 0.72 mg/dL 0.57-1.25 cdvo=560) GLUCOSE RANDOM (BEAKER) 398 mg/dL 70-105 (test mmuu=822) CALCIUM (BEAKER) (test 8.6 mg/dL 8.4-10.2 qfon=655) EGFR (BEAKER) (test 120 mL/min/1.73 sq m ESTIMATED GFR IS NOT yvvo=2227) ACCURATE CREATININE CLEARANCE IN PREDICTING GLOMERULAR FILTRATION RATE. ESTIMATED GFR IS NOT APPLICABLE FOR DIALYSIS PATIENTS. CBC W/PLT COUNT & AUTO [id number] 05:39:00 Test Item Value Reference Range Comments WHITE BLOOD CELL COUNT (BEAKER) (test iptw=972) 18.6 K/ L 3.5-10.5 RED BLOOD CELL COUNT (BEAKER) (test mzwj=498) 3.25 M/ L 3.93-5.22 HEMOGLOBIN (BEAKER) (test welt=005) 8.7 GM/DL 11.2-15.7 HEMATOCRIT (BEAKER) (test itwq=835) 28.2 % 34.1-44.9 MEAN CORPUSCULAR VOLUME (BEAKER) (test nvqn=073) 86.8 fL 79.4-94.8 MEAN CORPUSCULAR HEMOGLOBIN (BEAKER) (test 26.8 pg 25.6-32.2 lnqy=088) MEAN CORPUSCULAR HEMOGLOBIN CONC (BEAKER) (test 30.9 GM/DL 32.2-35.5 ouet=783) RED CELL DISTRIBUTION WIDTH (BEAKER) (test 16.4 % 11.7-14.4 bpcb=298) PLATELET COUNT (BEAKER) (test jeek=027) 288 K/CU MM 150-450 MEAN PLATELET VOLUME (BEAKER) (test gglm=733) 10.8 fL 9.4-12.3 NUCLEATED RED BLOOD CELLS (BEAKER) (test 0 /100 WBC 0-0 dxhp=614) NEUTROPHILS RELATIVE PERCENT (BEAKER) (test 89 % rkev=144) LYMPHOCYTES RELATIVE PERCENT (BEAKER) (test 6 % qvza=763) MONOCYTES RELATIVE PERCENT (BEAKER) (test 3 % vfnk=382) EOSINOPHILS RELATIVE PERCENT (BEAKER) (test 0 % othn=996) BASOPHILS RELATIVE PERCENT (BEAKER) (test 0 % sqjy=387) NEUTROPHILS ABSOLUTE COUNT (BEAKER) (test 16.59 K/ L 1.56-6.13 ival=870) LYMPHOCYTES ABSOLUTE COUNT (BEAKER) (test 1.20 K/ L 1.18-3.74 acmw=395) MONOCYTES ABSOLUTE COUNT (BEAKER) (test 0.56 K/ L 0.24-0.36 zmrn=611) EOSINOPHILS ABSOLUTE COUNT (BEAKER) (test 0.02 K/ L 0.04-0.36 jtxs=754) BASOPHILS ABSOLUTE COUNT (BEAKER) (test 0.02 K/ L 0.01-0.08 huah=344) IMMATURE GRANULOCYTES-RELATIVE PERCENT (BEAKER) 1 % 0-1 (test pqsb=4864) POCT-GLUCOSE [id number] 21:48:00 Test Item Value Reference Range Comments POC-GLUCOSE METER (BEAKER) 405 mg/dL 70-110 TESTED AT [place] [id number] [facility] (test uqpt=3497) [facility] [address] POCT-GLUCOSE [id number] 17:42:00 Test Item Value Reference Range Comments POC-GLUCOSE METER (BEAKER) 325 mg/dL 70-110 Notified RN or MD Patient (test ajsu=2768) refused repeat test/TESTED AT [place] [id number] [facility] [address] POCT-GLUCOSE [id number] 13:00:00 Test Item Value Reference Range Comments POC-GLUCOSE METER (BEAKER) 62 mg/dL 70-110 Notified RN MD/TESTED AT [facility] (test pule=1665) [address] [place] [address] POCT-GLUCOSE [id number] 12:20:00 Test Item Value Reference Range Comments POC-GLUCOSE METER (BEAKER) 50 mg/dL 70-110 Will Repeat Test/TESTED AT (test muam=9358) [address] [address] POCT-GLUCOSE [id number] 12:20:00 Test Item Value Reference Range Comments POC-GLUCOSE METER (BEAKER) 37 mg/dL 70-110 Notified RN or MD Patient (test ahhw=6520) refused repeat test/TESTED AT [address] [address] POCT-GLUCOSE [id number] 08:11:00 Test Item Value Reference Range Comments POC-GLUCOSE METER (BEAKER) 372 mg/dL 70-110 TESTED AT [address] (test ocxq=6478) [facility] [address] BASIC METABOLIC [id number] 06:08:00 Test Item Value Reference Range Comments SODIUM (BEAKER) (test 135 meq/L 136-145 gtnh=354) POTASSIUM (BEAKER) (test 4.2 meq/L 3.5-5.1 tyiw=393) CHLORIDE (BEAKER) (test 102 meq/L 98-107 flng=137) CO2 (BEAKER) (test 26 meq/L 22-29 dbgp=535) BLOOD UREA NITROGEN 25 mg/dL 7-21 (BEAKER) (test ubvt=917) CREATININE (BEAKER) (test 0.69 mg/dL 0.57-1.25 lgxc=592) GLUCOSE RANDOM (BEAKER) 296 mg/dL 70-105 (test dpap=875) CALCIUM (BEAKER) (test 8.2 mg/dL 8.4-10.2 lmdr=609) EGFR (BEAKER) (test 126 mL/min/1.73 sq m ESTIMATED GFR IS NOT ignp=3830) ACCURATE CREATININE CLEARANCE IN PREDICTING GLOMERULAR FILTRATION RATE. ESTIMATED GFR IS NOT APPLICABLE FOR DIALYSIS PATIENTS. CBC W/PLT COUNT & AUTO [id number] 05:42:00 Test Item Value Reference Range Comments WHITE BLOOD CELL COUNT (BEAKER) (test ubvv=823) 14.7 K/ L 3.5-10.5 RED BLOOD CELL COUNT (BEAKER) (test wsga=879) 3.39 M/ L 3.93-5.22 HEMOGLOBIN (BEAKER) (test ggff=011) 8.7 GM/DL 11.2-15.7 HEMATOCRIT (BEAKER) (test pejx=005) 29.5 % 34.1-44.9 MEAN CORPUSCULAR VOLUME (BEAKER) (test algl=336) 87.0 fL 79.4-94.8 MEAN CORPUSCULAR HEMOGLOBIN (BEAKER) (test 25.7 pg 25.6-32.2 hppk=779) MEAN CORPUSCULAR HEMOGLOBIN CONC (BEAKER) (test 29.5 GM/DL 32.2-35.5 wqtv=762) RED CELL DISTRIBUTION WIDTH (BEAKER) (test 16.2 % 11.7-14.4 gglw=821) PLATELET COUNT (BEAKER) (test hani=013) 294 K/CU MM 150-450 MEAN PLATELET VOLUME (BEAKER) (test fhxq=550) 11.2 fL 9.4-12.3 NUCLEATED RED BLOOD CELLS (BEAKER) (test 0 /100 WBC 0-0 uwww=742) NEUTROPHILS RELATIVE PERCENT (BEAKER) (test 72 % btke=756) LYMPHOCYTES RELATIVE PERCENT (BEAKER) (test 19 % qdxi=562) MONOCYTES RELATIVE PERCENT (BEAKER) (test 6 % svrr=877) EOSINOPHILS RELATIVE PERCENT (BEAKER) (test 2 % lmbu=180) BASOPHILS RELATIVE PERCENT (BEAKER) (test 0 % bvxa=426) NEUTROPHILS ABSOLUTE COUNT (BEAKER) (test 10.58 K/ L 1.56-6.13 arua=928) LYMPHOCYTES ABSOLUTE COUNT (BEAKER) (test 2.80 K/ L 1.18-3.74 uhlj=414) MONOCYTES ABSOLUTE COUNT (BEAKER) (test 0.84 K/ L 0.24-0.36 nhju=397) EOSINOPHILS ABSOLUTE COUNT (BEAKER) (test 0.34 K/ L 0.04-0.36 ywgy=815) BASOPHILS ABSOLUTE COUNT (BEAKER) (test 0.03 K/ L 0.01-0.08 kuko=659) IMMATURE GRANULOCYTES-RELATIVE PERCENT (BEAKER) 1 % 0-1 (test nvcq=5082) POCT-GLUCOSE [id number] 19:45:00 Test Item Value Reference Range Comments POC-GLUCOSE METER (BEAKER) 81 mg/dL 70-110 TESTED AT [address] (test qnzh=9874) [facility] [address] POCT-GLUCOSE [id number] 15:40:00 Test Item Value Reference Range Comments POC-GLUCOSE METER (BEAKER) 190 mg/dL 70-110 TESTED AT [address] (test mmon=6659) [place] [id number] POCT-GLUCOSE [id number] 10:56:00 Test Item Value Reference Range Comments POC-GLUCOSE METER (BEAKER) 262 mg/dL 70-110 TESTED AT [address] (test jpwa=0741) [place] [address] POCT-GLUCOSE [id number] 08:59:00 Test Item Value Reference Range Comments POC-GLUCOSE METER (BEAKER) 246 mg/dL 70-110 TESTED AT [address] (test wlnt=7740) [place] [address] POCT-GLUCOSE [id number] 08:13:00 Test Item Value Reference Range Comments POC-GLUCOSE METER (BEAKER) 176 mg/dL 70-110 TESTED AT [address] (test xtow=4019) [place] [id number] POCT-GLUCOSE [id number] 07:18:00 Test Item Value Reference Range Comments POC-GLUCOSE METER (BEAKER) 193 mg/dL 70-110 TESTED AT [address] (test efxw=2909) [place] [address] POCT-GLUCOSE [id number] 06:35:00 Test Item Value Reference Range Comments POC-GLUCOSE METER (BEAKER) 178 mg/dL 70-110 TESTED AT [address] (test nuwz=6264) [place] [id number] BASIC METABOLIC [id number] 06:18:00 Test Item Value Reference Range Comments SODIUM (BEAKER) (test 138 meq/L 136-145 ytjc=620) POTASSIUM (BEAKER) (test 4.3 meq/L 3.5-5.1 qabx=664) CHLORIDE (BEAKER) (test 105 meq/L 98-107 sakc=815) CO2 (BEAKER) (test 26 meq/L 22-29 vdlw=543) BLOOD UREA NITROGEN 19 mg/dL 7-21 (BEAKER) (test bxtm=495) CREATININE (BEAKER) (test 0.67 mg/dL 0.57-1.25 pats=668) GLUCOSE RANDOM (BEAKER) 142 mg/dL 70-105 (test hlut=081) CALCIUM (BEAKER) (test 8.4 mg/dL 8.4-10.2 kasz=968) EGFR (BEAKER) (test 130 mL/min/1.73 sq m ESTIMATED GFR IS NOT efev=5641) ACCURATE CREATININE CLEARANCE IN PREDICTING GLOMERULAR FILTRATION RATE. ESTIMATED GFR IS NOT APPLICABLE FOR DIALYSIS PATIENTS. CBC W/PLT COUNT & AUTO [id number] 06:07:00 Test Item Value Reference Range Comments WHITE BLOOD CELL COUNT (BEAKER) (test hsfx=689) 12.9 K/ L 3.5-10.5 RED BLOOD CELL COUNT (BEAKER) (test vcrf=629) 3.38 M/ L 3.93-5.22 HEMOGLOBIN (BEAKER) (test bzzw=174) 8.9 GM/DL 11.2-15.7 HEMATOCRIT (BEAKER) (test eijj=871) 29.3 % 34.1-44.9 MEAN CORPUSCULAR VOLUME (BEAKER) (test ftii=215) 86.7 fL 79.4-94.8 MEAN CORPUSCULAR HEMOGLOBIN (BEAKER) (test 26.3 pg 25.6-32.2 ndwr=074) MEAN CORPUSCULAR HEMOGLOBIN CONC (BEAKER) (test 30.4 GM/DL 32.2-35.5 eaqm=553) RED CELL DISTRIBUTION WIDTH (BEAKER) (test 15.7 % 11.7-14.4 rqfk=511) PLATELET COUNT (BEAKER) (test eglz=763) 301 K/CU MM 150-450 MEAN PLATELET VOLUME (BEAKER) (test rbpo=945) 10.5 fL 9.4-12.3 NUCLEATED RED BLOOD CELLS (BEAKER) (test 0 /100 WBC 0-0 afyb=129) NEUTROPHILS RELATIVE PERCENT (BEAKER) (test 71 % oyay=303) LYMPHOCYTES RELATIVE PERCENT (BEAKER) (test 21 % cidv=590) MONOCYTES RELATIVE PERCENT (BEAKER) (test 6 % frog=653) EOSINOPHILS RELATIVE PERCENT (BEAKER) (test 2 % psrm=657) BASOPHILS RELATIVE PERCENT (BEAKER) (test 0 % jkhm=326) NEUTROPHILS ABSOLUTE COUNT (BEAKER) (test 9.13 K/ L 1.56-6.13 rwhp=200) LYMPHOCYTES ABSOLUTE COUNT (BEAKER) (test 2.70 K/ L 1.18-3.74 khiw=570) MONOCYTES ABSOLUTE COUNT (BEAKER) (test 0.74 K/ L 0.24-0.36 rsba=880) EOSINOPHILS ABSOLUTE COUNT (BEAKER) (test 0.19 K/ L 0.04-0.36 ggmj=055) BASOPHILS ABSOLUTE COUNT (BEAKER) (test 0.01 K/ L 0.01-0.08 bcph=704) IMMATURE GRANULOCYTES-RELATIVE PERCENT (BEAKER) 1 % 0-1 (test uoik=2191) POCT-GLUCOSE [id number] 05:15:00 Test Item Value Reference Range Comments POC-GLUCOSE METER (BEAKER) 169 mg/dL 70-110 TESTED AT [address] (test bkbq=5297) [place] [id number] POCT-GLUCOSE [id number] 04:27:00 Test Item Value Reference Range Comments POC-GLUCOSE METER (BEAKER) 271 mg/dL 70-110 TESTED AT [address] (test tvdo=9328) [facility] [address] POCT-GLUCOSE [id number] 03:45:00 Test Item Value Reference Range Comments POC-GLUCOSE METER (BEAKER) 269 mg/dL 70-110 TESTED AT [address] (test hddm=6046) [facility] [address] POCT-GLUCOSE [id number] 01:40:00 Test Item Value Reference Range Comments POC-GLUCOSE METER (BEAKER) 200 mg/dL 70-110 TESTED AT [address] (test nzso=7988) [facility] [address] BASIC METABOLIC [id number] 00:50:00 Test Item Value Reference Range Comments SODIUM (BEAKER) (test 138 meq/L 136-145 nojt=692) POTASSIUM (BEAKER) (test 4.0 meq/L 3.5-5.1 sqlv=599) CHLORIDE (BEAKER) (test 105 meq/L 98-107 cfoe=481) CO2 (BEAKER) (test 25 meq/L 22-29 zeev=431) BLOOD UREA NITROGEN 19 mg/dL 7-21 (BEAKER) (test wjgh=414) CREATININE (BEAKER) (test 0.71 mg/dL 0.57-1.25 hzhu=847) GLUCOSE RANDOM (BEAKER) 101 mg/dL 70-105 (test upxd=548) CALCIUM (BEAKER) (test 8.1 mg/dL 8.4-10.2 fzlo=882) EGFR (BEAKER) (test 122 mL/min/1.73 sq m ESTIMATED GFR IS NOT xlkt=6794) ACCURATE CREATININE CLEARANCE IN PREDICTING GLOMERULAR FILTRATION RATE. ESTIMATED GFR IS NOT APPLICABLE FOR DIALYSIS PATIENTS. POCT-GLUCOSE [id number] 00:49:00 Test Item Value Reference Range Comments POC-GLUCOSE METER (BEAKER) 103 mg/dL 70-110 TESTED AT [address] (test uxbd=9419) [facility] [address] POCT-GLUCOSE [id number] 00:28:00 Test Item Value Reference Range Comments POC-GLUCOSE METER (BEAKER) 109 mg/dL 70-110 TESTED AT [address] (test wfxt=6795) [facility] [address] POCT-GLUCOSE [id number] 23:10:00 Test Item Value Reference Range Comments POC-GLUCOSE METER (BEAKER) 191 mg/dL 70-110 TESTED AT [address] (test mmgb=9793) [facility] [address] POCT-GLUCOSE [id number] 22:17:00 Test Item Value Reference Range Comments POC-GLUCOSE METER (BEAKER) 257 mg/dL 70-110 TESTED AT [address] (test uscc=9508) [facility] [address] POCT-GLUCOSE [id number] 21:28:00 Test Item Value Reference Range Comments POC-GLUCOSE METER (BEAKER) 261 mg/dL 70-110 TESTED AT [address] (test spgh=4306) [facility] [address] POCT-GLUCOSE [id number] 20:19:00 Test Item Value Reference Range Comments POC-GLUCOSE METER (BEAKER) 223 mg/dL 70-110 TESTED AT [address] (test mnhz=6837) [facility] [address] POCT-GLUCOSE [id number] 19:30:00 Test Item Value Reference Range Comments POC-GLUCOSE METER (BEAKER) 218 mg/dL 70-110 TESTED AT [address] (test lsgj=2383) [place] [address] POCT-GLUCOSE [id number] 18:28:00 Test Item Value Reference Range Comments POC-GLUCOSE METER (BEAKER) 167 mg/dL 70-110 TESTED AT [address] (test tlww=2499) [place] [address] BASIC METABOLIC [id number] 17:37:00 Test Item Value Reference Range Comments SODIUM (BEAKER) (test 136 meq/L 136-145 qeji=069) POTASSIUM (BEAKER) (test 4.2 meq/L 3.5-5.1 ubla=236) CHLORIDE (BEAKER) (test 104 meq/L 98-107 gpha=330) CO2 (BEAKER) (test 23 meq/L 22-29 homv=532) BLOOD UREA NITROGEN 17 mg/dL 7-21 (BEAKER) (test ikdq=797) CREATININE (BEAKER) (test 0.79 mg/dL 0.57-1.25 mlfr=787) GLUCOSE RANDOM (BEAKER) 340 mg/dL 70-105 (test dlcj=417) CALCIUM (BEAKER) (test 8.1 mg/dL 8.4-10.2 ngme=678) EGFR (BEAKER) (test 107 mL/min/1.73 sq m ESTIMATED GFR IS NOT pxub=6803) ACCURATE CREATININE CLEARANCE IN PREDICTING GLOMERULAR FILTRATION RATE. ESTIMATED GFR IS NOT APPLICABLE FOR DIALYSIS PATIENTS. POCT-GLUCOSE [id number] 17:29:00 Test Item Value Reference Range Comments POC-GLUCOSE METER (BEAKER) 357 mg/dL 70-110 TESTED AT [address] (test ilzp=8356) [place] [address] POCT-GLUCOSE [id number] 16:17:00 Test Item Value Reference Range Comments POC-GLUCOSE METER (BEAKER) 412 mg/dL 70-110 TESTED AT [address] (test joyv=5776) [place] [address] POCT-GLUCOSE [id number] 14:57:00 Test Item Value Reference Range Comments POC-GLUCOSE METER (BEAKER) 356 mg/dL 70-110 TESTED AT [address] (test bypc=1692) [place] [address] POCT-GLUCOSE [id number] 14:08:00 Test Item Value Reference Range Comments POC-GLUCOSE METER (BEAKER) 247 mg/dL 70-110 TESTED AT [facility] [address] [facility] (test mpuf=6501) [facility] [address] RAD, ABDOMEN/KUB, 1 VIEW [id number] 14:07:00Reason for exam:->Abdominal pain, Cystic FibrosisShould this be performed at the bedside?->YesFINAL REPORT Two frontal views of the abdomen HISTORY: Abdominal pain COMPARISON: 05/03/2017 IMPRESSION: Moderate amount of stool in the colon. Nonobstructive bowel gas pattern. Bronchiectasis in the lungs. Lung bases otherwise clear. Signed: Michael Rosen MDReport Verified Date/Time: 2017 14:07:49 Reading Location: [address] Body Reading Room [facility] METABOLIC [id number] 13:15:00 Test Item Value Reference Range Comments SODIUM (BEAKER) (test 136 meq/L 136-145 zqju=217) POTASSIUM (BEAKER) (test 3.7 meq/L 3.5-5.1 aiek=178) CHLORIDE (BEAKER) (test 104 meq/L 98-107 mbyq=502) CO2 (BEAKER) (test 23 meq/L 22-29 auwu=382) BLOOD UREA NITROGEN 14 mg/dL 7-21 (BEAKER) (test ocer=815) CREATININE (BEAKER) (test 0.65 mg/dL 0.57-1.25 kvxz=883) GLUCOSE RANDOM (BEAKER) 318 mg/dL 70-105 (test yicj=235) CALCIUM (BEAKER) (test 8.4 mg/dL 8.4-10.2 adal=717) EGFR (BEAKER) (test 135 mL/min/1.73 sq m ESTIMATED GFR IS NOT enkx=5829) ACCURATE CREATININE CLEARANCE IN PREDICTING GLOMERULAR FILTRATION RATE. ESTIMATED GFR IS NOT APPLICABLE FOR DIALYSIS PATIENTS. POCT-GLUCOSE [id number] 12:22:00 Test Item Value Reference Range Comments POC-GLUCOSE METER (BEAKER) 367 mg/dL 70-110 TESTED AT [facility] [address] [facility] (test vpwd=5799) [facility] [address] POCT-GLUCOSE [id number] 11:11:00 Test Item Value Reference Range Comments POC-GLUCOSE METER (BEAKER) 458 mg/dL 70-110 TESTED AT [address] (test zgmk=8475) [place] [address] [id number] 11:11:00 Test Item Value Reference Range Comments GLUCOSE RANDOM (BEAKER) (test iqwg=108) 449 mg/dL 70-105 POCT-GLUCOSE [id number] 10:06:00 Test Item Value Reference Range Comments POC-GLUCOSE METER (BEAKER) > mg/dL 70-110 OUTSIDE MEASURING RANGETESTED AT (test haev=2299) [place] [address] SPUTUM CULTURE + GRAM [id number] 09:42:00 Test Item Value Reference Range Comments CULTURE (BEAKER) (test qlol=2295) See comment Culture charges credited as "incorrect order". Please refer to CF respiratory culture for results.Previously reported organism is no longer reported. Please contact the Microbiology Department for additional information.POCT- GLUCOSE [id number] 09:12:00 Test Item Value Reference Range Comments POC-GLUCOSE METER (BEAKER) 388 mg/dL 70-110 TESTED AT [address] (test xzss=5277) [place] [address] POCT-GLUCOSE [id number] 07:56:00 Test Item Value Reference Range Comments POC-GLUCOSE METER (BEAKER) 194 mg/dL 70-110 TESTED AT [address] (test tlsd=7075) [place] [address] POCT-GLUCOSE [id number] 06:35:00 Test Item Value Reference Range Comments POC-GLUCOSE METER (BEAKER) 157 mg/dL 70-110 TESTED AT [address] (test qwor=3306) [place] [address] POCT-GLUCOSE [id number] 05:10:00 Test Item Value Reference Range Comments POC-GLUCOSE METER (BEAKER) 247 mg/dL 70-110 TESTED AT [address] (test suqo=0376) [place] [address] BASIC METABOLIC [id number] 04:54:00 Test Item Value Reference Range Comments SODIUM (BEAKER) (test 135 meq/L 136-145 njpx=103) POTASSIUM (BEAKER) (test 3.9 meq/L 3.5-5.1 jyku=280) CHLORIDE (BEAKER) (test 104 meq/L 98-107 ksvv=045) CO2 (BEAKER) (test 23 meq/L 22-29 aqgg=115) BLOOD UREA NITROGEN 20 mg/dL 7-21 (BEAKER) (test txpk=266) CREATININE (BEAKER) (test 0.72 mg/dL 0.57-1.25 cawq=227) GLUCOSE RANDOM (BEAKER) 263 mg/dL 70-105 (test jdqn=188) CALCIUM (BEAKER) (test 8.0 mg/dL 8.4-10.2 mxtg=592) EGFR (BEAKER) (test 120 mL/min/1.73 sq m ESTIMATED GFR IS NOT tiip=0198) ACCURATE CREATININE CLEARANCE IN PREDICTING GLOMERULAR FILTRATION RATE. ESTIMATED GFR IS NOT APPLICABLE FOR DIALYSIS PATIENTS. POCT-GLUCOSE [id number] 04:07:00 Test Item Value Reference Range Comments POC-GLUCOSE METER (BEAKER) 290 mg/dL 70-110 TESTED AT [address] (test nlge=2074) [place] [address] POCT-GLUCOSE [id number] 03:04:00 Test Item Value Reference Range Comments POC-GLUCOSE METER (BEAKER) 309 mg/dL 70-110 TESTED AT [address] (test fuha=1765) [place] [address] POCT-GLUCOSE [id number] 01:36:00 Test Item Value Reference Range Comments POC-GLUCOSE METER (BEAKER) 361 mg/dL 70-110 TESTED AT [address] (test zzqs=0449) [place] [address] POCT-GLUCOSE [id number] 00:06:00 Test Item Value Reference Range Comments POC-GLUCOSE METER (BEAKER) 308 mg/dL 70-110 TESTED AT [address] (test upia=9010) [place] [address] URINALYSIS W/ [id number] 23:11:00 Test Item Value Reference Range Comments COLOR (BEAKER) (test prlq=434) Light Yellow CLARITY (BEAKER) (test xtds=096) Clear SPECIFIC GRAVITY UA (BEAKER) (test eros=599) 1.033 1.001-1.035 PH UA (BEAKER) (test zzie=988) 6.0 5.0-8.0 PROTEIN UA (BEAKER) (test immy=274) 50 mg/dL Negative GLUCOSE UA (BEAKER) (test aykn=213) >1000 mg/dL Negative KETONES UA (BEAKER) (test sgcz=121) Negative Negative BILIRUBIN UA (BEAKER) (test mlyr=798) Negative Negative BLOOD UA (BEAKER) (test iulc=706) Negative Negative NITRITE UA (BEAKER) (test jnzn=383) Negative Negative LEUKOCYTE ESTERASE UA (BEAKER) (test ykwh=159) Negative Negative UROBILINOGEN UA (BEAKER) (test ktar=268) 0.2 mg/dL 0.2-1.0 RBC UA (BEAKER) (test bfqb=198) 3 /HPF WBC UA (BEAKER) (test flne=476) 3 /HPF MUCUS (BEAKER) (test ncft=4828) Rare SQUAMOUS EPITHELIAL (BEAKER) (test sdgv=910) 1 /HPF SOURCE(BEAKER) (test zmgv=9511) Urine, Voided POCT-GLUCOSE [id number] 22:35:00 Test Item Value Reference Range Comments POC-GLUCOSE METER (BEAKER) 350 mg/dL 70-110 TESTED AT [address] (test traf=6079) [facility] [address] POCT-GLUCOSE [id number] 21:17:00 Test Item Value Reference Range Comments POC-GLUCOSE METER (BEAKER) 438 mg/dL 70-110 TESTED AT [address] (test zwum=9899) [facility] [address] POCT-GLUCOSE [id number] 20:16:00 Test Item Value Reference Range Comments POC-GLUCOSE METER (BEAKER) 446 mg/dL 70-110 TESTED AT [address] (test scep=4952) [place] [address] POCT-GLUCOSE [id number] 18:57:00 Test Item Value Reference Range Comments POC-GLUCOSE METER (BEAKER) 452 mg/dL 70-110 Will Repeat Test/TESTED AT (test dwyy=0515) [address] [address] [id number] 18:10:00 Test Item Value Reference Range Comments GLUCOSE RANDOM (BEAKER) (test kste=522) 548 mg/dL 70-105 If last glucose was less than 500, may do bedside glucose instead of serum glucose.POCT-GLUCOSE [id number] 17:46:00 Test Item Value Reference Range Comments POC-GLUCOSE METER (BEAKER) > mg/dL 70-110 OUTSIDE MEASURING RANGEWill (test pltw=2116) Repeat Test/TESTED AT [address] [address] POCT-GLUCOSE [id number] 16:37:00 Test Item Value Reference Range Comments POC-GLUCOSE METER (BEAKER) > mg/dL 70-110 OUTSIDE MEASURING RANGEWill (test cuku=8425) Repeat Test/TESTED AT [address] [address] [id number] 16:07:00 Test Item Value Reference Range Comments GLUCOSE RANDOM (BEAKER) (test uvol=397) 658 mg/dL 70-105 If last glucose was less than 500, may do bedside glucose instead of serum glucose.[id number] 15:53:00 Test Item Value Reference Range Comments POTASSIUM (BEAKER) (test pdkx=912) 4.2 meq/L 3.5-5.1 If last glucose was less than 500, may do bedside glucose instead of serum glucose.POCT-GLUCOSE [id number] 15:37:00 Test Item Value Reference Range Comments POC-GLUCOSE METER (BEAKER) > mg/dL 70-110 OUTSIDE MEASURING RANGETESTED AT (test tnvz=5962) [address] [address] [id number] 14:05:00 Test Item Value Reference Range Comments GLUCOSE RANDOM (BEAKER) (test tyeg=845) 682 mg/dL 70-105 If last glucose was less than 500, may do bedside glucose instead of serum glucose.[id number] 14:03:00 Test Item Value Reference Range Comments POTASSIUM (BEAKER) (test swlg=477) 4.2 meq/L 3.5-5.1 If last glucose was less than 500, may do bedside glucose instead of serum glucose.KETONE, [id number] 13:59:00 Test Item Value Reference Range Comments KETONES, BLOOD (BEAKER) (test blys=3335) 0.1 mmol/L <0.4 BASIC METABOLIC [id number] 10:48:00 Test Item Value Reference Range Comments SODIUM (BEAKER) (test 129 meq/L 136-145 zwnd=061) POTASSIUM (BEAKER) (test 5.2 meq/L 3.5-5.1 qbqi=555) CHLORIDE (BEAKER) (test 91 meq/L 98-107 oroq=981) CO2 (BEAKER) (test 22 meq/L 22-29 thpp=780) BLOOD UREA NITROGEN 18 mg/dL 7-21 (BEAKER) (test kkjw=568) CREATININE (BEAKER) (test 1.28 mg/dL 0.57-1.25 dnpu=535) GLUCOSE RANDOM (BEAKER) 889 mg/dL 70-105 (test tpee=089) CALCIUM (BEAKER) (test 8.1 mg/dL 8.4-10.2 prqf=497) EGFR (BEAKER) (test 62 mL/min/1.73 sq m ESTIMATED GFR IS NOT giqi=4800) ACCURATE CREATININE CLEARANCE IN PREDICTING GLOMERULAR FILTRATION RATE. ESTIMATED GFR IS NOT APPLICABLE FOR DIALYSIS PATIENTS. TROPONIN [id number] 10:40:00 Test Item Value Reference Range Comments TROPONIN I (BEAKER) (test wmje=652) < ng/mL 0.00-0.03 Troponin I (TnI) levels [...] acidosis, acute neurological disease, and persistent tachyarrhythmia.POCT-GLUCOSE [id number] 09:51:00 Test Item Value Reference Range Comments POC-GLUCOSE METER (BEAKER) > mg/dL 70-110 OUTSIDE MEASURING RANGENotified RN (test kmcu=0519) MD/TESTED AT [place] [id number] [facility] [address] POCT-GLUCOSE [id number] 08:34:00 Test Item Value Reference Range Comments POC-GLUCOSE METER (BEAKER) > mg/dL 70-110 OUTSIDE MEASURING RANGENotified RN (test xthv=8982) MD/TESTED AT [address] [address] RESPIRATORY PANEL [id number] 07:53:00 Test Item Value Reference Range Comments HUMAN METAPNEUMOVIRUS (BEAKER) (test Not detected Not detected, Inconclusive mvpp=1271) RHINOVIRUS (BEAKER) (test lvfi=9141) Not detected Not detected, Inconclusive INFLUENZA A (BEAKER) (test Not detected Not detected, Inconclusive mevc=6020) INFLUENZA A SUBTYPE H1 (BEAKER) Not detected Not detected, Inconclusive (test ydkl=9749) INFLUENZA A SUBTYPE H3 (BEAKER) Not detected Not detected, Inconclusive (test urqw=4804) INFLUENZA A SUBTYPE H1-2009 (BEAKER) Not detected Not detected, Inconclusive (test sueo=9474) INFLUENZA B (BEAKER) (test Not detected Not detected, Inconclusive owzr=1894) RESPIRATORY SYNCYTIAL VIRUS (BEAKER) Not detected Not detected, Inconclusive (test unmv=1651) PARAINFLUENZA VIRUS 1 (BEAKER) (test Not detected Not detected, Inconclusive xslq=6795) PARAINFLUENZA VIRUS 2 (BEAKER) (test Not detected Not detected, Inconclusive tytw=8455) PARAINFLUENZA VIRUS 3 (BEAKER) (test Not detected Not detected, Inconclusive wxhq=2242) PARAINFLUENZA VIRUS 4 (BEAKER) (test Not detected Not detected, Inconclusive zxyp=1844) ADENOVIRUS (BEAKER) (test ylph=5015) Not detected Not detected, Inconclusive CORONAVIRUS 229E (BEAKER) (test Not detected Not detected, Inconclusive gjtr=3796) CORONAVIRUS HKU1 (BEAKER) (test Not detected Not detected, Inconclusive lepr=3504) CORONAVIRUS NL63 (BEAKER) (test Not detected Not detected, Inconclusive ezac=8691) CORONAVIRUS OC43 (BEAKER) (test Not detected Not detected, Inconclusive csht=0740) BORDETELLA PERTUSSIS (BEAKER) (test Not detected Not detected, Inconclusive trdc=0105) CHLAMYDOPHILA PNEUMONIAE (BEAKER) Not detected Not detected, Inconclusive (test hktt=3263) MYCOPLASMA PNEUMONIAE (BEAKER) (test Not detected Not detected, Inconclusive hhoq=5746) HEMOGLOBIN [id number] 07:34:00 Test Item Value Reference Range Comments HEMOGLOBIN A1C (BEAKER) (test xbpj=328) 14.5 % 4.3-6.1 [id number] 05:23:00 Test Item Value Reference Range Comments BLOOD UREA NITROGEN (BEAKER) (test mvpg=913) 15 mg/dL 7-21 [id number] 05:23:00 Test Item Value Reference Range Comments CREATININE (BEAKER) (test 1.31 mg/dL 0.57-1.25 nwuv=385) EGFR (BEAKER) (test 60 mL/min/1.73 sq m ESTIMATED GFR IS NOT howg=1407) ACCURATE CREATININE CLEARANCE IN PREDICTING GLOMERULAR FILTRATION RATE. ESTIMATED GFR IS NOT APPLICABLE FOR DIALYSIS PATIENTS. POCT-LACTIC ACID, [id number] 02:44:00 Test Item Value Reference Range Comments POC-LACTIC ACID, VENOUS 1.4 mmol/L 0.9-1.7 TESTED AT [facility] [address] (BEAKER) (test clhk=5875) [facility] [address] TROPONIN [id number] 00:25:00 Test Item Value Reference Range Comments TROPONIN I (BEAKER) (test wpqk=263) < ng/mL 0.00-0.03 Troponin I (TnI) levels [...] disease, and persistent tachyarrhythmia.LACTIC ACID, VENOUS, WHOLE [id number] 00:16:00 Test Item Value Reference Range Comments LACTATE BLOOD VENOUS (2) (BEAKER) (test 2.1 mmol/L 0.5-2.2 vdtv=7189) Effective 02/26/2016: Units/Reference Range ChangeNew: 0.5-2.2 mmol/L Previous: 5 -20 mg/dLKETONE, [id number] 23:58:00 Test Item Value Reference Range Comments KETONES, BLOOD (BEAKER) (test vcnk=6961) 0.4 mmol/L <0.4 RAPID STREP A [id number] 23:13:00 Test Item Value Reference Range Comments STREP A ANTIGEN (BEAKER) (test bqxb=723) Negative Negative TROPONIN [id number] 22:54:00 Test Item Value Reference Range Comments TROPONIN I (BEAKER) (test mtub=774) < ng/mL 0.00-0.03 Troponin I (TnI) levels [...] and persistent tachyarrhythmia.CREATINE KINASE (CK), TOTAL AND [id number] 22:54:00 Test Item Value Reference Range Comments CREATINE KINASE TOTAL (BEAKER) (test 13 U/L 29-200 wzyv=532) CREATINE KINASE-MB (BEAKER) (test 0.1 ng/mL 0.0-6.6 zzkh=563) CREATINE KINASE-MB INDEX (BEAKER) (test 0.8 % Unable to Calculate kncy=872) CK-MB Reference Range:<6.7 Normal6.7-10.0 Borderline>10.0 AbnormalCOMPREHENSIVE METABOLIC [id number] 22:48:00 Test Item Value Reference Range Comments TOTAL PROTEIN (BEAKER) 7.2 gm/dL 6.0-8.3 (test nnic=020) ALBUMIN (BEAKER) (test 2.7 g/dL 3.5-5.0 kiht=1144) ALKALINE PHOSPHATASE 182 U/L 40-150 (BEAKER) (test uqwj=939) BILIRUBIN TOTAL (BEAKER) 0.4 mg/dL 0.2-1.2 (test rrdq=255) SODIUM (BEAKER) (test 135 meq/L 136-145 jyjj=413) POTASSIUM (BEAKER) (test 3.8 meq/L 3.5-5.1 jyqp=494) CHLORIDE (BEAKER) (test 95 meq/L 98-107 roxi=671) CO2 (BEAKER) (test 28 meq/L 22-29 hmht=476) BLOOD UREA NITROGEN 8 mg/dL 7-21 (BEAKER) (test wusb=979) CREATININE (BEAKER) (test 0.68 mg/dL 0.57-1.25 ptyi=776) GLUCOSE RANDOM (BEAKER) 180 mg/dL 70-105 (test dwif=973) CALCIUM (BEAKER) (test 9.0 mg/dL 8.4-10.2 uafg=409) AST (SGOT) (BEAKER) (test 9 U/L 5-34 nsgc=040) ALT (SGPT) (BEAKER) (test 6 U/L 6-55 wjmi=305) EGFR (BEAKER) (test 128 mL/min/1.73 sq ESTIMATED GFR IS NOT grln=6661) m ACCURATE CREATININE CLEARANCE IN PREDICTING GLOMERULAR FILTRATION RATE. ESTIMATED GFR IS NOT APPLICABLE FOR DIALYSIS PATIENTS. RAPID INFLUENZA A&B [id number] 22:47:00 Test Item Value Reference Range Comments RAPID INFLUENZA A AG (BEAKER) (test Negative Negative, Inconclusive fjgu=3907) RAPID INFLUENZA B AG (BEAKER) (test Negative Negative, Inconclusive wxob=6007) LACTIC ACID, VENOUS, WHOLE [id number] 22:43:00 Test Item Value Reference Range Comments LACTATE BLOOD VENOUS (2) ([facility]) (test 0.9 mmol/L 0.5-2.2 lvjn=0666) Effective 02/26/2016: Units/Reference Range ChangeNew: 0.5-2.2 mmol/L Previous: 5 -20 mg/dLPOCT-LACTIC ACID, [id number] 22:36:00 Test Item Value Reference Range Comments POC-LACTIC ACID, VENOUS 0.7 mmol/L 0.9-1.7 TESTED AT [address] ([facility]) (test jsvm=5612) [facility] [address] POCT-GLUCOSE [id number] 22:35:00 Test Item Value Reference Range Comments POC-GLUCOSE METER ([facility]) 191 mg/dL 70-110 TESTED AT [address] (test jnqq=7831) [facility] [address] CBC W/PLT COUNT & AUTO [id number] 22:33:00 Test Item Value Reference Range Comments WHITE BLOOD CELL COUNT (BEAKER) (test ndch=234) 19.5 K/ L 3.5-10.5 RED BLOOD CELL COUNT (BEAKER) (test igss=793) 4.00 M/ L 3.93-5.22 HEMOGLOBIN (BEAKER) (test yywy=559) 10.6 GM/DL 11.2-15.7 HEMATOCRIT (BEAKER) (test cxol=174) 33.5 % 34.1-44.9 MEAN CORPUSCULAR VOLUME (BEAKER) (test ajqh=043) 83.8 fL 79.4-94.8 MEAN CORPUSCULAR HEMOGLOBIN (BEAKER) (test 26.5 pg 25.6-32.2 unbk=571) MEAN CORPUSCULAR HEMOGLOBIN CONC (BEAKER) (test 31.6 GM/DL 32.2-35.5 stnp=425) RED CELL DISTRIBUTION WIDTH (BEAKER) (test 15.5 % 11.7-14.4 rijl=264) PLATELET COUNT (BEAKER) (test xpfe=105) 357 K/CU MM 150-450 MEAN PLATELET VOLUME (BEAKER) (test cshg=521) 10.9 fL 9.4-12.3 NUCLEATED RED BLOOD CELLS (BEAKER) (test 0 /100 WBC 0-0 fcuj=086) NEUTROPHILS RELATIVE PERCENT (BEAKER) (test 83 % zejf=671) LYMPHOCYTES RELATIVE PERCENT (BEAKER) (test 9 % ijwy=300) MONOCYTES RELATIVE PERCENT (BEAKER) (test 7 % rxev=143) EOSINOPHILS RELATIVE PERCENT (BEAKER) (test 1 % oviq=667) BASOPHILS RELATIVE PERCENT (BEAKER) (test 0 % jagj=567) NEUTROPHILS ABSOLUTE COUNT (BEAKER) (test 16.10 K/ L 1.56-6.13 uduy=973) LYMPHOCYTES ABSOLUTE COUNT (BEAKER) (test 1.79 K/ L 1.18-3.74 btmw=374) MONOCYTES ABSOLUTE COUNT (BEAKER) (test 1.37 K/ L 0.24-0.36 sdip=992) EOSINOPHILS ABSOLUTE COUNT (BEAKER) (test 0.12 K/ L 0.04-0.36 dvsg=122) BASOPHILS ABSOLUTE COUNT (BEAKER) (test 0.04 K/ L 0.01-0.08 nfvy=221) IMMATURE GRANULOCYTES-RELATIVE PERCENT (BEAKER) 1 % 0-1 (test ziay=9158) RAD, CHEST, 1 VIEW, NON [id number] 22:18:00Reason for exam:->SHORTNESS OF BREATHShould this be [...] Qureshi Verified Date/Time: 02/18/2018 22:18:49 Reading Location: [facility] Diagnostic Imaging Reading Room - [place] [address] [employer] CULTURE + [id number] 14:30: 00 Test Item Value Reference Range Comments CULTURE (BEAKER) (test No acid-fast bacilli isolated tjca=8568) in 42 days AFB SMEAR (BEAKER) (test No acid fast bacilli seen fouz=600) FUNGUS CULTURE + [id number] 15:40:00 Test Item Value Reference Range Comments CULTURE (BEAKER) (test 1+ Clau dubliniensis ryls=6521) FUNGUS SMEAR (BEAKER) (test 1+ budding yeast ezzx=1271) CF RESPIRATORY [id number] 10:56:00 Test Item Value Reference Range Comments CULTURE (BEAKER) (test bneg=8834) Amikacin (test code=1) Susceptible 0-16 , Resistant <0 or >16 Aztreonam (test Susceptible 0-8 , code=32) Resistant <0 or >8 Cefepime (test code=51) Susceptible 0-8 , Resistant <0 or >8 Ceftazidime (test Susceptible 0-8 , code=27) Resistant <0 or >8 Ciprofloxacin (test Susceptible 0-1 , code=7) Resistant <0 or >1 Doripenem (test Susceptible 0-2 , olve=046) Resistant <0 or >2 Gentamicin (test Susceptible [...] >4 CULTURE (BEAKER) (test PSEUDOMONAS 4+ Pseudomonas jeaj=2721) AERUGINOSA aeruginosa (Mucoid-phenotype) Amikacin (test code=1) Susceptible 0-16 , Resistant <0 or >16 Aztreonam (test Susceptible 0-8 , code=32) Resistant <0 or >8 Cefepime (test code=51) Susceptible 0-8 , Resistant <0 or >8 Ceftazidime (test Susceptible 0-8 , code=27) Resistant <0 or >8 Ciprofloxacin (test Susceptible 0-1 , code=7) Resistant <0 or >1 Doripenem (test Susceptible 0-2 , pxlv=577) Resistant <0 or >2 Gentamicin (test Susceptible [...] or >4 CULTURE (BEAKER) (test 4+ Pseudomonas gmzo=2351) aeruginosa 2+ Normal respiratory derick presentBLOOD [id number] 23:00:00 Test Item Value Reference Range Comments CULTURE (BEAKER) (test vhbu=9955) No growth in 5 days BLOOD [id number] 23:00:00 Test Item Value Reference Range Comments CULTURE (BEAKER) (test ppvd=3744) No growth in 5 days POCT-GLUCOSE [id number] 11:04:00 Test Item Value Reference Range Comments POC-GLUCOSE METER (BEAKER) 107 mg/dL 70-110 TESTED AT [address] (test zxoh=8394) [place] [address] POCT-GLUCOSE [id number] 08:39:00 Test Item Value Reference Range Comments POC-GLUCOSE METER (BEAKER) 90 mg/dL 70-110 TESTED AT [address] (test ytyz=8649) [place] [address] POCT-GLUCOSE [id number] 21:21:00 Test Item Value Reference Range Comments POC-GLUCOSE METER (BEAKER) 63 mg/dL 70-110 Notified JORDON STAPLETON/TESTED AT [facility] (test pmkw=1492) [address] [place] [address] POCT-GLUCOSE [id number] 17:03:00 Test Item Value Reference Range Comments POC-GLUCOSE METER (BEAKER) 61 mg/dL 70-110 Will Repeat Test/TESTED AT (test pucl=4436) [place] [address] POCT-GLUCOSE [id number] 12:18:00 Test Item Value Reference Range Comments POC-GLUCOSE METER (BEAKER) 54 mg/dL 70-110 Notified JORDON STAPLETON/TESTED AT [facility] (test mqpw=6500) [address] [place] [address] POCT-GLUCOSE [id number] 09:59:00 Test Item Value Reference Range Comments POC-GLUCOSE METER (BEAKER) 173 mg/dL 70-110 TESTED AT [address] (test owtw=9556) [place] [address] BUN AND [id number] 05:43:00 Test Item Value Reference Range Comments BLOOD UREA NITROGEN 14 mg/dL 7-21 (BEAKER) (test xgaq=611) CREATININE (BEAKER) (test 0.71 mg/dL 0.57-1.25 owjf=428) EGFR (BEAKER) (test 122 mL/min/1.73 sq m ESTIMATED GFR IS NOT lsna=2329) ACCURATE CREATININE CLEARANCE IN PREDICTING GLOMERULAR FILTRATION RATE. ESTIMATED GFR IS NOT APPLICABLE FOR DIALYSIS PATIENTS. POCT-GLUCOSE [id number] 22:13:00 Test Item Value Reference Range Comments POC-GLUCOSE METER (BEAKER) 171 mg/dL 70-110 TESTED AT [address] (test ywkz=6381) [place] [address] POCT-GLUCOSE [id number] 17:15:00 Test Item Value Reference Range Comments POC-GLUCOSE METER (BEAKER) 163 mg/dL 70-110 TESTED AT [address] (test qubq=6525) [place] [address] SPIN/CONCENTRATION [id number] 15:40:00 Test Item Value Reference Range Comments CONCENTRATION CHARGED (BEAKER) (test jhec=1890) Done POCT-GLUCOSE [id number] 12:57:00 Test Item Value Reference Range Comments POC-GLUCOSE METER (BEAKER) 210 mg/dL 70-110 TESTED AT [address] (test abuc=3693) [place] [address] POCT-GLUCOSE [id number] 08:13:00 Test Item Value Reference Range Comments POC-GLUCOSE METER (BEAKER) 288 mg/dL 70-110 TESTED AT [address] (test zzdg=2157) [place] [address] BUN AND [id number] 04:09:00 Test Item Value Reference Range Comments BLOOD UREA NITROGEN 13 mg/dL 7-21 (BEAKER) (test gzqt=042) CREATININE (BEAKER) (test 0.70 mg/dL 0.57-1.25 rujn=289) EGFR (BEAKER) (test 124 mL/min/1.73 sq m ESTIMATED GFR IS NOT qwva=2117) ACCURATE CREATININE CLEARANCE IN PREDICTING GLOMERULAR FILTRATION RATE. ESTIMATED GFR IS NOT APPLICABLE FOR DIALYSIS PATIENTS. POCT-GLUCOSE [id number] 21:28:00 Test Item Value Reference Range Comments POC-GLUCOSE METER (BEAKER) 307 mg/dL 70-110 TESTED AT [address] (test dsnc=1163) [place] [address] RESPIRATORY PANEL [id number] 19:09:00 Test Item Value Reference Range Comments HUMAN METAPNEUMOVIRUS Not detected Not detected, (BEAKER) (test yfbo=1290) Inconclusive RHINOVIRUS (BEAKER) (test Not detected Not detected, ycjx=4037) Inconclusive INFLUENZA A (BEAKER) (test Not detected Not detected, jgdr=8529) Inconclusive INFLUENZA A SUBTYPE H1 Not detected Not detected, (BEAKER) (test nhde=9626) Inconclusive INFLUENZA A SUBTYPE H3 Not detected Not detected, (BEAKER) (test zjpu=2092) Inconclusive INFLUENZA A SUBTYPE H1-2009 Not detected Not detected, (BEAKER) (test nbas=9482) Inconclusive INFLUENZA B (BEAKER) (test Not detected Not detected, szdd=7116) Inconclusive RESPIRATORY SYNCYTIAL VIRUS Not detected Not detected, (BEAKER) (test nncw=0461) Inconclusive PARAINFLUENZA VIRUS 1 Not detected Not detected, (BEAKER) (test xwcl=9158) Inconclusive PARAINFLUENZA VIRUS 2 Not detected Not detected, (BEAKER) (test avuz=9149) Inconclusive PARAINFLUENZA VIRUS 3 Not detected Not detected, (BEAKER) (test irhe=6380) Inconclusive PARAINFLUENZA VIRUS 4 Not detected Not detected, (BEAKER) (test wnse=1084) Inconclusive ADENOVIRUS (BEAKER) (test Not detected Not detected, twpe=5122) Inconclusive CORONAVIRUS 229E (BEAKER) Not detected Not detected, (test ptlu=3053) Inconclusive CORONAVIRUS HKU1 (BEAKER) Detected Not detected, FilmArray RP assay for (test qyij=3516) Inconclusive Coronavirus OC43 may cross react with some isolates of Coronavirus HKU1. A dual positive may be due to cross reactivity or may indicate a co-infection. CORONAVIRUS NL63 (BEAKER) Not detected Not detected, (test qeeb=8267) Inconclusive CORONAVIRUS OC43 (BEAKER) Not detected Not detected, FilmArray RP assay for (test ifsi=3358) Inconclusive Coronavirus OC43 may cross react with some isolates of Coronavirus HKU1. A dual positive may be due to cross reactivity or may indicate a co-infection. BORDETELLA PERTUSSIS Not detected Not detected, (BEAKER) (test uyxn=3097) Inconclusive CHLAMYDOPHILA PNEUMONIAE Not detected Not detected, (BEAKER) (test btme=8987) Inconclusive MYCOPLASMA PNEUMONIAE Not detected Not detected, (BEAKER) (test ltbl=4126) Inconclusive POCT-GLUCOSE [id number] 17:30:00 Test Item Value Reference Range Comments POC-GLUCOSE METER (BEAKER) 322 mg/dL 70-110 Will Repeat Test/TESTED AT (test xumz=1678) [facility] [address] [facility] [address] URINALYSIS W/ [id number] 15:33:00 Test Item Value Reference Range Comments COLOR (BEAKER) (test jmmv=949) Light Yellow CLARITY (BEAKER) (test seec=428) Clear SPECIFIC GRAVITY UA (BEAKER) (test vltp=640) 1.022 1.001-1.035 PH UA (BEAKER) (test lgrf=325) 7.0 5.0-8.0 PROTEIN UA (BEAKER) (test akin=323) Negative Negative GLUCOSE UA (BEAKER) (test rksd=478) >1000 mg/dL Negative KETONES UA (BEAKER) (test ryab=210) Negative Negative BILIRUBIN UA (BEAKER) (test qoek=676) Negative Negative BLOOD UA (BEAKER) (test zodn=939) Negative Negative NITRITE UA (BEAKER) (test vnws=319) Negative Negative LEUKOCYTE ESTERASE UA (BEAKER) (test drcv=491) Negative Negative UROBILINOGEN UA (BEAKER) (test peoi=429) 0.2 mg/dL 0.2-1.0 RBC UA (BEAKER) (test isoo=307) 1 /HPF WBC UA (BEAKER) (test hrnn=831) < /HPF BACTERIA (BEAKER) (test lfdy=527) Rare SQUAMOUS EPITHELIAL (BEAKER) (test oofg=024) 1 /HPF SOURCE(BEAKER) (test ggjw=5721) Urine, Voided POCT-GLUCOSE [id number] 13:21:00 Test Item Value Reference Range Comments POC-GLUCOSE METER (BEAKER) 492 mg/dL 70-110 Will Repeat Test/TESTED AT (test krua=8182) [address] [address] POCT-GLUCOSE [id number] 13:15:00 Test Item Value Reference Range Comments POC-GLUCOSE METER (BEAKER) > mg/dL 70-110 OUTSIDE MEASURING RANGEWill (test ktqc=4607) Repeat Test/TESTED AT [address] [address] HEMOGLOBIN [id number] 08:57:00 Test Item Value Reference Range Comments HEMOGLOBIN A1C (BEAKER) (test egah=949) 13.8 % 4.3-6.1 HEMOGLOBIN [id number] 08:57:00 Test Item Value Reference Range Comments HEMOGLOBIN A1C (BEAKER) (test wzcj=003) 13.7 % 4.3-6.1 POCT-GLUCOSE [id number] 07:57:00 Test Item Value Reference Range Comments POC-GLUCOSE METER (BEAKER) 471 mg/dL 70-110 Will Repeat Test/TESTED AT (test cjtj=2262) [address] [address] COMPREHENSIVE METABOLIC [id number] 03:12:00 Test Item Value Reference Range Comments TOTAL PROTEIN (BEAKER) 7.4 gm/dL 6.0-8.3 (test aryy=005) ALBUMIN (BEAKER) (test 3.0 g/dL 3.5-5.0 waxo=6496) ALKALINE PHOSPHATASE 119 U/L 40-150 (BEAKER) (test abaq=682) BILIRUBIN TOTAL (BEAKER) < mg/dL 0.2-1.2 (test alih=274) SODIUM (BEAKER) (test 135 meq/L 136-145 gsup=318) POTASSIUM (BEAKER) (test 4.4 meq/L 3.5-5.1 krmu=808) CHLORIDE (BEAKER) (test 101 meq/L 98-107 oabp=980) CO2 (BEAKER) (test 28 meq/L 22-29 kpbu=629) BLOOD UREA NITROGEN 8 mg/dL 7-21 (BEAKER) (test sedz=084) CREATININE (BEAKER) (test 0.73 mg/dL 0.57-1.25 fzku=302) GLUCOSE RANDOM (BEAKER) 119 mg/dL 70-105 (test gizu=357) CALCIUM (BEAKER) (test 9.0 mg/dL 8.4-10.2 ytvo=614) AST (SGOT) (BEAKER) (test 18 U/L 5-34 bthd=942) ALT (SGPT) (BEAKER) (test 9 U/L 6-55 jssn=352) EGFR (BEAKER) (test 118 mL/min/1.73 sq ESTIMATED GFR IS NOT grml=2055) m ACCURATE CREATININE CLEARANCE IN PREDICTING GLOMERULAR FILTRATION RATE. ESTIMATED GFR IS NOT APPLICABLE FOR DIALYSIS PATIENTS. BUN AND [id number] 03:11:00 Test Item Value Reference Range Comments BLOOD UREA NITROGEN 7 mg/dL 7-21 (BEAKER) (test yaql=959) CREATININE (BEAKER) (test 0.72 mg/dL 0.57-1.25 vcqo=230) EGFR (BEAKER) (test 120 mL/min/1.73 sq m ESTIMATED GFR IS NOT xpcu=5183) ACCURATE CREATININE CLEARANCE IN PREDICTING GLOMERULAR FILTRATION RATE. ESTIMATED GFR IS NOT APPLICABLE FOR DIALYSIS PATIENTS. GAMMA GLUTAMYL TRANSFERASE (GGT)2017-11-30 03:11:00 Test Item Value Reference Range Comments GAMMA GLUTAMYL TRANSFERASE (BEAKER) (test crat=732) 19 U/L 9-64 [id number] 03:10:00 Test Item Value Reference Range Comments PHOSPHORUS (BEAKER) (test hvit=045) 3.6 mg/dL 2.3-4.7 [id number] 03:05:00 Test Item Value Reference Range Comments MAGNESIUM (BEAKER) (test kvxx=262) 1.6 mg/dL 1.6-2.6 CBC W/PLT COUNT & AUTO [id number] 02:46:00 Test Item Value Reference Range Comments WHITE BLOOD CELL COUNT (BEAKER) (test ofsz=341) 9.5 K/ L 3.5-10.5 RED BLOOD CELL COUNT (BEAKER) (test eqxv=472) 4.27 M/ L 3.93-5.22 HEMOGLOBIN (BEAKER) (test udar=429) 11.3 GM/DL 11.2-15.7 HEMATOCRIT (BEAKER) (test hzds=055) 36.4 % 34.1-44.9 MEAN CORPUSCULAR VOLUME (BEAKER) (test hwcj=777) 85.2 fL 79.4-94.8 MEAN CORPUSCULAR HEMOGLOBIN (BEAKER) (test 26.5 pg 25.6-32.2 ajhp=368) MEAN CORPUSCULAR HEMOGLOBIN CONC (BEAKER) (test 31.0 GM/DL 32.2-35.5 nils=182) RED CELL DISTRIBUTION WIDTH (BEAKER) (test 15.0 % 11.7-14.4 qohg=645) PLATELET COUNT (BEAKER) (test pvhi=738) 314 K/CU MM 150-450 MEAN PLATELET VOLUME (BEAKER) (test yiqx=620) 11.9 fL 9.4-12.3 NUCLEATED RED BLOOD CELLS (BEAKER) (test 0 /100 WBC 0-0 bbfk=401) NEUTROPHILS RELATIVE PERCENT (BEAKER) (test 88 % ikst=515) LYMPHOCYTES RELATIVE PERCENT (BEAKER) (test 8 % emmb=340) MONOCYTES RELATIVE PERCENT (BEAKER) (test 3 % ymjb=158) EOSINOPHILS RELATIVE PERCENT (BEAKER) (test 1 % twkd=148) BASOPHILS RELATIVE PERCENT (BEAKER) (test 0 % jsrm=058) NEUTROPHILS ABSOLUTE COUNT (BEAKER) (test 8.37 K/ L 1.56-6.13 tfgf=049) LYMPHOCYTES ABSOLUTE COUNT (BEAKER) (test 0.74 K/ L 1.18-3.74 ozbk=481) MONOCYTES ABSOLUTE COUNT (BEAKER) (test 0.29 K/ L 0.24-0.36 fyid=816) EOSINOPHILS ABSOLUTE COUNT (BEAKER) (test 0.07 K/ L 0.04-0.36 zizr=239) BASOPHILS ABSOLUTE COUNT (BEAKER) (test 0.02 K/ L 0.01-0.08 lbqb=104) IMMATURE GRANULOCYTES-RELATIVE PERCENT (BEAKER) 0 % 0-1 (test nnji=1716) RAD, CHEST, 2 [id number] 22:13:00Reason for exam:->Cystic FibrosisShould this be performed [...] pneumonitis cannot be excluded. Signed: Lisa Rider MDReport Verified Date/Time: 11/29/2017 22:13:03 Reading Location: [address] Consult Reading Room POCT-GLUCOSE [id number] 21:13:00 Test Item Value Reference Range Comments POC-GLUCOSE METER (BEAKER) > mg/dL 70-110 OUTSIDE MEASURING RANGETESTED AT (test qryb=7837) [facility] [address] [facility] [address] POCT-GLUCOSE [id number] 18:02:00 Test Item Value Reference Range Comments POC-GLUCOSE METER (BEAKER) 292 mg/dL 70-110 TESTED AT [address] (test wmxj=8346) [facility] [address] [id number] 08:10:00 Test Item Value Reference Range Comments MAGNESIUM (BEAKER) (test fmcn=373) 1.4 mg/dL 1.6-2.6 [id number] 08:10:00 Test Item Value Reference Range Comments PHOSPHORUS (BEAKER) (test askw=954) 3.3 mg/dL 2.3-4.7 BASIC METABOLIC [id number] 07:41:00 Test Item Value Reference Range Comments SODIUM (BEAKER) (test 137 meq/L 136-145 zbgf=614) POTASSIUM (BEAKER) (test 3.1 meq/L 3.5-5.1 yeuk=984) CHLORIDE (BEAKER) (test 103 meq/L 98-107 oztq=405) CO2 (BEAKER) (test 26 meq/L 22-29 dxql=101) BLOOD UREA NITROGEN 3 mg/dL 7-21 (BEAKER) (test pynd=756) CREATININE (BEAKER) (test 0.60 mg/dL 0.57-1.25 fevn=366) GLUCOSE RANDOM (BEAKER) 124 mg/dL 70-105 (test isfw=498) CALCIUM (BEAKER) (test 9.4 mg/dL 8.4-10.2 vert=040) EGFR (BEAKER) (test 148 mL/min/1.73 sq m ESTIMATED GFR IS NOT dvyg=9884) ACCURATE CREATININE CLEARANCE IN PREDICTING GLOMERULAR FILTRATION RATE. ESTIMATED GFR IS NOT APPLICABLE FOR DIALYSIS PATIENTS. KETONE, [id number] 07:13:00 Test Item Value Reference Range Comments KETONES, BLOOD (BEAKER) (test zphv=9475) 0.0 mmol/L <0.4 BLOOD GAS, [id number] 07:10:00 Test Item Value Reference Range Comments PH VENOUS (BEAKER) (test lnqj=377) 7.42 7.32-7.42 PCO2 VENOUS (BEAKER) (test taof=210) 47 mmHg 41-51 PO2 VENOUS (BEAKER) (test zxfl=211) 57 mmHg 25-40 O2 SATURATION VENOUS (BEAKER) (test cuvt=305) 90.2 % 40.0-70.0 HCO3 VENOUS (BEAKER) (test dtgb=258) 30 mmol/L 21-29 BASE EXCESS VENOUS (BEAKER) (test vwnd=165) 4.9 mmol/L -2.0-3.0 PATIENT TEMPERATURE (BEAKER) (test brzk=9806) 37.0 C FIO2 (BEAKER) (test ztvh=3999) 21.0 % POCT-GLUCOSE [id number] 06:51:00 Test Item Value Reference Range Comments POC-GLUCOSE METER (BEAKER) 134 mg/dL 70-110 TESTED AT [facility] [address] (test hlky=1204) [facility] [address] BASIC METABOLIC [id number] 06:32:00 Test Item Value Reference Range Comments SODIUM (BEAKER) (test 129 meq/L 136-145 agws=691) POTASSIUM (BEAKER) (test 3.5 meq/L 3.5-5.1 hbco=899) CHLORIDE (BEAKER) (test 97 meq/L 98-107 pzpl=875) CO2 (BEAKER) (test 18 meq/L 22-29 fbnn=028) BLOOD UREA NITROGEN 4 mg/dL 7-21 (BEAKER) (test zioy=455) CREATININE (BEAKER) (test 1.04 mg/dL 0.57-1.25 yhpr=646) GLUCOSE RANDOM (BEAKER) 753 mg/dL 70-105 (test thhm=653) CALCIUM (BEAKER) (test 8.9 mg/dL 8.4-10.2 wouz=223) EGFR (BEAKER) (test 78 mL/min/1.73 sq m ESTIMATED GFR IS NOT pezw=9205) ACCURATE CREATININE CLEARANCE IN PREDICTING GLOMERULAR FILTRATION RATE. ESTIMATED GFR IS NOT APPLICABLE FOR DIALYSIS PATIENTS. URINALYSIS W/ REFLEX URINE [id number] 06:19:00 Test Item Value Reference Range Comments COLOR (BEAKER) (test cpjq=792) Colorless CLARITY (BEAKER) (test wzmf=766) Clear SPECIFIC GRAVITY UA (BEAKER) (test dfok=566) 1.009 1.001-1.035 PH UA (BEAKER) (test eimu=421) 6.0 5.0-8.0 PROTEIN UA (BEAKER) (test nkgx=052) Negative Negative GLUCOSE UA (BEAKER) (test suhu=587) >1000 mg/dL Negative KETONES UA (BEAKER) (test hhhj=561) Negative Negative BILIRUBIN UA (BEAKER) (test gbda=203) Negative Negative BLOOD UA (BEAKER) (test arhk=827) Small Negative NITRITE UA (BEAKER) (test mmcq=254) Negative Negative LEUKOCYTE ESTERASE UA (BEAKER) (test omcd=477) Negative Negative UROBILINOGEN UA (BEAKER) (test iweq=930) 0.2 mg/dL 0.2-1.0 RBC UA (BEAKER) (test zklh=493) < /HPF WBC UA (BEAKER) (test qkue=360) 1 /HPF BACTERIA (BEAKER) (test vkdf=520) Rare SQUAMOUS EPITHELIAL (BEAKER) (test nkyf=775) 4 /HPF AMORPHOUS CRYSTALS (BEAKER) (test otea=2618) Rare SOURCE(BEAKER) (test vbou=5576) SCREEN, [id number] 06:07:00 Test Item Value Reference Range Comments TEST URINE (BEAKER) (test sqrx=958) Negative [id number] 05:41:00 Test Item Value Reference Range Comments LIPASE (BEAKER) (test pwty=408) < U/L 8-78 HEPATIC FUNCTION [id number] 05:40:00 Test Item Value Reference Range Comments TOTAL PROTEIN (BEAKER) (test oiuq=153) 7.0 gm/dL 6.0-8.3 ALBUMIN (BEAKER) (test isne=9008) 2.8 g/dL 3.5-5.0 BILIRUBIN TOTAL (BEAKER) (test sdmf=348) < mg/dL 0.2-1.2 BILIRUBIN DIRECT (BEAKER) (test onxn=208) 0.1 mg/dL 0.1-0.5 ALKALINE PHOSPHATASE (BEAKER) (test qgdv=402) 122 U/L 40-150 AST (SGOT) (BEAKER) (test vigt=122) 9 U/L 5-34 ALT (SGPT) (BEAKER) (test qldq=885) 7 U/L 6-55 CBC W/PLT COUNT & AUTO [id number] 05:10:00 Test Item Value Reference Range Comments WHITE BLOOD CELL COUNT (BEAKER) (test fswn=527) 5.9 K/ L 3.5-10.5 RED BLOOD CELL COUNT (BEAKER) (test bvuc=650) 4.44 M/ L 3.93-5.22 HEMOGLOBIN (BEAKER) (test dhkc=854) 11.8 GM/DL 11.2-15.7 HEMATOCRIT (BEAKER) (test xoxx=681) 39.2 % 34.1-44.9 MEAN CORPUSCULAR VOLUME (BEAKER) (test khki=122) 88.3 fL 79.4-94.8 MEAN CORPUSCULAR HEMOGLOBIN (BEAKER) (test 26.6 pg 25.6-32.2 swqn=446) MEAN CORPUSCULAR HEMOGLOBIN CONC (BEAKER) (test 30.1 GM/DL 32.2-35.5 veic=822) RED CELL DISTRIBUTION WIDTH (BEAKER) (test 14.9 % 11.7-14.4 xnsf=772) PLATELET COUNT (BEAKER) (test zxll=784) 294 K/CU MM 150-450 MEAN PLATELET VOLUME (BEAKER) (test zidn=870) 11.9 fL 9.4-12.3 NUCLEATED RED BLOOD CELLS (BEAKER) (test 0 /100 WBC 0-0 okpe=769) NEUTROPHILS RELATIVE PERCENT (BEAKER) (test 67 % oadq=792) LYMPHOCYTES RELATIVE PERCENT (BEAKER) (test 26 % kkol=843) MONOCYTES RELATIVE PERCENT (BEAKER) (test 5 % bunt=212) EOSINOPHILS RELATIVE PERCENT (BEAKER) (test 2 % faal=476) BASOPHILS RELATIVE PERCENT (BEAKER) (test 0 % acwg=992) NEUTROPHILS ABSOLUTE COUNT (BEAKER) (test 3.99 K/ L 1.56-6.13 onzf=109) LYMPHOCYTES ABSOLUTE COUNT (BEAKER) (test 1.51 K/ L 1.18-3.74 flfy=319) MONOCYTES ABSOLUTE COUNT (BEAKER) (test 0.29 K/ L 0.24-0.36 qtev=835) EOSINOPHILS ABSOLUTE COUNT (BEAKER) (test 0.11 K/ L 0.04-0.36 pymd=942) BASOPHILS ABSOLUTE COUNT (BEAKER) (test 0.02 K/ L 0.01-0.08 dzqm=527) IMMATURE GRANULOCYTES-RELATIVE PERCENT (BEAKER) 0 % 0-1 (test hbnu=4584) AFB CULTURE + [id number] 12:29:00 Test Item Value Reference Range Comments CULTURE (BEAKER) (test No acid-fast bacilli isolated dzuo=9865) in 42 days AFB SMEAR (BEAKER) (test No acid fast bacilli seen dcwd=410) FUNGUS CULTURE + [id number] 09:42:00 Test Item Value Reference Range Comments CULTURE (BEAKER) (test <1+ Clau dubliniensis nwjv=8793) FUNGUS SMEAR (BEAKER) <1+ budding yeast (test mxdm=0205) See smear results.POCT-GLUCOSE [id number] 14:27:00 Test Item Value Reference Range Comments POC-GLUCOSE METER (BEAKER) 255 mg/dL 70-110 TESTED AT [address] (test uquz=1226) [place] [address] POCT-GLUCOSE [id number] 11:59:00 Test Item Value Reference Range Comments POC-GLUCOSE METER (BEAKER) 157 mg/dL 70-110 TESTED AT [address] (test gaba=9302) [place] [address] POCT-GLUCOSE [id number] 08:51:00 Test Item Value Reference Range Comments POC-GLUCOSE METER (BEAKER) 57 mg/dL 70-110 Notified JORDON STAPLETON/TESTED AT [facility] (test fqip=0056) [address] [place] [address] [id number] 05:55:00 Test Item Value Reference Range Comments BLOOD UREA NITROGEN (BEAKER) (test ffxd=342) 18 mg/dL 7-21 [id number] 05:55:00 Test Item Value Reference Range Comments CREATININE (BEAKER) (test 0.69 mg/dL 0.57-1.25 vbra=485) EGFR (BEAKER) (test 126 mL/min/1.73 sq m ESTIMATED GFR IS NOT eikh=4763) ACCURATE CREATININE CLEARANCE IN PREDICTING GLOMERULAR FILTRATION RATE. ESTIMATED GFR IS NOT APPLICABLE FOR DIALYSIS PATIENTS. POCT-GLUCOSE [id number] 21:24:00 Test Item Value Reference Range Comments POC-GLUCOSE METER (BEAKER) 139 mg/dL 70-110 TESTED AT [address] (test isgb=3002) [place] [address] POCT-GLUCOSE [id number] 17:18:00 Test Item Value Reference Range Comments POC-GLUCOSE METER (BEAKER) 148 mg/dL 70-110 TESTED AT [address] (test lsxg=0067) [place] [address] POCT-GLUCOSE [id number] 12:36:00 Test Item Value Reference Range Comments POC-GLUCOSE METER (BEAKER) 104 mg/dL 70-110 TESTED AT [address] (test qqvd=8763) [place] [address] CF RESPIRATORY [id number] 11:18:00 Test Item Value Reference Range Comments CULTURE (BEAKER) (test iltt=1447) Amikacin (test code=1) Susceptible 0-16 , Resistant <0 or >16 Aztreonam (test Susceptible 0-8 , code=32) Resistant <0 or >8 Cefepime (test code=51) Susceptible 0-8 , Resistant <0 or >8 Ceftazidime (test Susceptible 0-8 , code=27) Resistant <0 or >8 Ciprofloxacin (test Susceptible 0-1 , code=7) Resistant <0 or >1 Doripenem (test Susceptible 0-2 , bvyq=056) Resistant <0 or >2 Gentamicin (test Susceptible [...] , code=25) Resistant <0 or >4 CULTURE (Bread) (test PSEUDOMONAS 4+ Pseudomonas iiih=7095) AERUGINOSA aeruginosa (MUCOID-PHENOTYPE) Amikacin (test code=1) Susceptible 0-16 , Resistant <0 or >16 Aztreonam (test Susceptible 0-8 , code=32) Resistant <0 or >8 Cefepime (test code=51) Susceptible 0-8 , Resistant <0 or >8 Ceftazidime (test Susceptible 0-8 , code=27) Resistant <0 or >8 Ciprofloxacin (test Susceptible 0-1 , code=7) Resistant <0 or >1 Doripenem (test Susceptible 0-2 , eodf=770) Resistant <0 or >2 Gentamicin (test Susceptible [...] or >4 CULTURE (BEAKER) (test 4+ Pseudomonas eezs=7338) aeruginosa (Mucoid-phenotype) CULTURE (BEAKER) (test 1+ Streptococcus not kklq=6483) group A beta hemolytic 4+ Normal respiratory derick presentPOCT-GLUCOSE [id number] 08:50:00 Test Item Value Reference Range Comments POC-GLUCOSE METER (BEAKER) 74 mg/dL 70-110 TESTED AT [address] (test kvyx=8889) [place] [address] [id number] 06:55:00 Test Item Value Reference Range Comments BLOOD UREA NITROGEN (BEAKER) (test cuma=456) 25 mg/dL 7-21 [id number] 06:55:00 Test Item Value Reference Range Comments CREATININE (BEAKER) (test 0.77 mg/dL 0.57-1.25 lyxl=649) EGFR (BEAKER) (test 111 mL/min/1.73 sq m ESTIMATED GFR IS NOT mpjo=8103) ACCURATE CREATININE CLEARANCE IN PREDICTING GLOMERULAR FILTRATION RATE. ESTIMATED GFR IS NOT APPLICABLE FOR DIALYSIS PATIENTS. POCT-GLUCOSE [id number] 21:23:00 Test Item Value Reference Range Comments POC-GLUCOSE METER (BEAKER) 226 mg/dL 70-110 TESTED AT [address] (test sdvl=3773) [place] [address] POCT-GLUCOSE [id number] 17:48:00 Test Item Value Reference Range Comments POC-GLUCOSE METER (BEAKER) 207 mg/dL 70-110 TESTED AT [address] (test oytj=2451) [place] [address] POCT-GLUCOSE [id number] 13:40:00 Test Item Value Reference Range Comments POC-GLUCOSE METER (BEAKER) 63 mg/dL 70-110 TESTED AT [address] (test ptpu=7572) [place] [address] POCT-GLUCOSE [id number] 12:57:00 Test Item Value Reference Range Comments POC-GLUCOSE METER (BEAKER) 42 mg/dL 70-110 Notified JORDON STAPLETON/TESTED AT [facility] (test spsk=6940) [address] [place] [address] POCT-GLUCOSE [id number] 08:52:00 Test Item Value Reference Range Comments POC-GLUCOSE METER (BEAKER) 191 mg/dL 70-110 TESTED AT [address] (test zbka=5926) [facility] [address] [id number] 07:08:00 Test Item Value Reference Range Comments BLOOD UREA NITROGEN (BEAKER) (test hogi=793) 18 mg/dL 7-21 [id number] 07:08:00 Test Item Value Reference Range Comments CREATININE (BEAKER) (test 0.75 mg/dL 0.57-1.25 huuh=859) EGFR (BEAKER) (test 114 mL/min/1.73 sq m ESTIMATED GFR IS NOT fvjk=5734) ACCURATE CREATININE CLEARANCE IN PREDICTING GLOMERULAR FILTRATION RATE. ESTIMATED GFR IS NOT APPLICABLE FOR DIALYSIS PATIENTS. POCT-GLUCOSE [id number] 21:41:00 Test Item Value Reference Range Comments POC-GLUCOSE METER (BEAKER) 361 mg/dL 70-110 TESTED AT [address] (test beix=3914) [place] [id number] POCT-GLUCOSE [id number] 18:53:00 Test Item Value Reference Range Comments POC-GLUCOSE METER (BEAKER) 96 mg/dL 70-110 TESTED AT [address] (test iwyq=4230) [place] [id number] POCT-GLUCOSE [id number] 18:18:00 Test Item Value Reference Range Comments POC-GLUCOSE METER (BEAKER) 68 mg/dL 70-110 Notified JORDON STAPLETON/TESTED AT [facility] (test jppg=7893) [address] [place] [address] POCT-GLUCOSE [id number] 13:46:00 Test Item Value Reference Range Comments POC-GLUCOSE METER (BEAKER) 142 mg/dL 70-110 TESTED AT [address] (test woyh=7364) [place] [id number] POCT-GLUCOSE [id number] 12:51:00 Test Item Value Reference Range Comments POC-GLUCOSE METER (BEAKER) 49 mg/dL 70-110 Notified JORDON STAPLETON/TESTED AT [facility] (test wsve=6904) [address] [place] [address] POCT-GLUCOSE [id number] 08:07:00 Test Item Value Reference Range Comments POC-GLUCOSE METER (BEAKER) 144 mg/dL 70-110 TESTED AT [address] (test ovzh=6257) [place] [address] [id number] 07:32:00 Test Item Value Reference Range Comments BLOOD UREA NITROGEN (BEAKER) (test ituy=356) 19 mg/dL 7-21 [id number] 07:32:00 Test Item Value Reference Range Comments CREATININE (BEAKER) (test 0.73 mg/dL 0.57-1.25 rehk=688) EGFR (BEAKER) (test 118 mL/min/1.73 sq m ESTIMATED GFR IS NOT gnfp=6577) ACCURATE CREATININE CLEARANCE IN PREDICTING GLOMERULAR FILTRATION RATE. ESTIMATED GFR IS NOT APPLICABLE FOR DIALYSIS PATIENTS. POCT-GLUCOSE [id number] 21:59:00 Test Item Value Reference Range Comments POC-GLUCOSE METER (BEAKER) 211 mg/dL 70-110 TESTED AT [address] (test yrva=3107) [place] [address] POCT-GLUCOSE [id number] 18:20:00 Test Item Value Reference Range Comments POC-GLUCOSE METER (BEAKER) 178 mg/dL 70-110 TESTED AT [address] (test pant=2321) [place] [address] [id number] 15:05:00 Test Item Value Reference Range Comments BLOOD UREA NITROGEN (BEAKER) (test aocm=112) 15 mg/dL 7-21 [id number] 15:05:00 Test Item Value Reference Range Comments CREATININE (BEAKER) (test 0.86 mg/dL 0.57-1.25 Specimen slightly wgyz=792) hemolyzed EGFR (BEAKER) (test 97 mL/min/1.73 sq m ESTIMATED GFR IS NOT yjtn=1012) ACCURATE CREATININE CLEARANCE IN PREDICTING GLOMERULAR FILTRATION RATE. ESTIMATED GFR IS NOT APPLICABLE FOR DIALYSIS PATIENTS. POCT-GLUCOSE [id number] 12:02:00 Test Item Value Reference Range Comments POC-GLUCOSE METER (BEAKER) 357 mg/dL 70-110 TESTED AT [address] (test siwk=2843) [place] [address] RAD, CHEST, 2 [id number] 10:11:00Reason for exam:->Cystic FibrosisShould this be performed [...] Impression: Stable findingsof cystic fibrosis. Signed: Everardo Castellanosort Verified Date/Time: 09/24/2017 10:11:13 Reading Location: [facility] Reading Room Electronically signed by: EVERARDO CASTELLANOS M.D. on 09/24 10:11 AMPOCT-GLUCOSE [id number] 08:09:00 Test Item Value Reference Range Comments POC-GLUCOSE METER (BEAKER) 331 mg/dL 70-110 TESTED AT [address] (test hqrm=2315) [place] [id number] POCT-GLUCOSE [id number] 21:28:00 Test Item Value Reference Range Comments POC-GLUCOSE METER (BEAKER) 473 mg/dL 70-110 TESTED AT [address] (test qapb=4542) [place] [id number] POCT-GLUCOSE [id number] 18:31:00 Test Item Value Reference Range Comments POC-GLUCOSE METER (BEAKER) 444 mg/dL 70-110 TESTED AT [address] (test zyti=8251) [place] [address] HEMOGLOBIN [id number] 17:51:00 Test Item Value Reference Range Comments HEMOGLOBIN A1C (BEAKER) (test blam=040) 13.7 % 4.3-6.1 POCT-GLUCOSE [id number] 17:16:00 Test Item Value Reference Range Comments POC-GLUCOSE METER (BEAKER) 496 mg/dL 70-110 Notified JORDON STAPLETON/TESTED AT [facility] (test dinv=9130) [address] [place] [address] SPIN/CONCENTRATION [id number] 12:37:00 Test Item Value Reference Range Comments CONCENTRATION CHARGED (BEAKER) (test gpbl=9493) Done POCT-GLUCOSE [id number] 12:28:00 Test Item Value Reference Range Comments POC-GLUCOSE METER (BEAKER) 492 mg/dL 70-110 Notified JORDON STAPLETON/TESTED AT [facility] (test xiqn=6406) [facility] [place] [facility] [address] [id number] 07:45:00 Test Item Value Reference Range Comments BLOOD UREA NITROGEN (BEAKER) (test yhyj=222) 10 mg/dL 7-21 [id number] 07:45:00 Test Item Value Reference Range Comments CREATININE (BEAKER) (test 0.76 mg/dL 0.57-1.25 bfrr=133) EGFR (BEAKER) (test 112 mL/min/1.73 sq m ESTIMATED GFR IS NOT ckzf=9602) ACCURATE CREATININE CLEARANCE IN PREDICTING GLOMERULAR FILTRATION RATE. ESTIMATED GFR IS NOT APPLICABLE FOR DIALYSIS PATIENTS. POCT-GLUCOSE [id number] 07:00:00 Test Item Value Reference Range Comments POC-GLUCOSE METER (BEAKER) 361 mg/dL 70-110 TESTED AT [place] [address] [facility] (test cdpb=9579) [facility] [address] [id number] 23:30:00 Test Item Value Reference Range Comments PHOSPHORUS (BEAKER) (test oxwc=344) 3.8 mg/dL 2.3-4.7 [id number] 23:30:00 Test Item Value Reference Range Comments MAGNESIUM (BEAKER) (test wyrc=266) 1.5 mg/dL 1.6-2.6 COMPREHENSIVE METABOLIC [id number] 23:30:00 Test Item Value Reference Range Comments TOTAL PROTEIN (BEAKER) 7.3 gm/dL 6.0-8.3 (test qcul=207) ALBUMIN (BEAKER) (test 3.0 g/dL 3.5-5.0 rthw=6274) ALKALINE PHOSPHATASE 136 U/L 40-150 (BEAKER) (test usqx=810) BILIRUBIN TOTAL (BEAKER) < mg/dL 0.2-1.2 (test oyls=350) SODIUM (BEAKER) (test 138 meq/L 136-145 qnwn=343) POTASSIUM (BEAKER) (test 4.5 meq/L 3.5-5.1 scjb=298) CHLORIDE (BEAKER) (test 102 meq/L 98-107 ngcy=172) CO2 (BEAKER) (test 28 meq/L 22-29 hagr=881) BLOOD UREA NITROGEN 8 mg/dL 7-21 (BEAKER) (test oocr=461) CREATININE (BEAKER) (test 0.72 mg/dL 0.57-1.25 lbkt=767) GLUCOSE RANDOM (BEAKER) 183 mg/dL 70-105 (test laai=700) CALCIUM (BEAKER) (test 9.0 mg/dL 8.4-10.2 sgxk=509) AST (SGOT) (BEAKER) (test 19 U/L 5-34 rswf=396) ALT (SGPT) (BEAKER) (test 7 U/L 6-55 slqs=799) EGFR (BEAKER) (test 120 mL/min/1.73 sq ESTIMATED GFR IS NOT luxn=6088) m ACCURATE CREATININE CLEARANCE IN PREDICTING GLOMERULAR FILTRATION RATE. ESTIMATED GFR IS NOT APPLICABLE FOR DIALYSIS PATIENTS. GAMMA GLUTAMYL TRANSFERASE (GGT)2017-09-22 23:30:00 Test Item Value Reference Range Comments GAMMA GLUTAMYL TRANSFERASE (BEAKER) (test sihm=349) 20 U/L 9-64 CBC W/PLT COUNT & AUTO [id number] 23:06:00 Test Item Value Reference Range Comments WHITE BLOOD CELL COUNT (BEAKER) (test lgcp=062) 6.3 K/ L 3.5-10.5 RED BLOOD CELL COUNT (BEAKER) (test jqjj=006) 4.23 M/ L 3.93-5.22 HEMOGLOBIN (BEAKER) (test muub=650) 10.9 GM/DL 11.2-15.7 HEMATOCRIT (BEAKER) (test zcel=051) 36.2 % 34.1-44.9 MEAN CORPUSCULAR VOLUME (BEAKER) (test tjle=842) 85.6 fL 79.4-94.8 MEAN CORPUSCULAR HEMOGLOBIN (BEAKER) (test 25.8 pg 25.6-32.2 isvl=790) MEAN CORPUSCULAR HEMOGLOBIN CONC (BEAKER) (test 30.1 GM/DL 32.2-35.5 cgsa=903) RED CELL DISTRIBUTION WIDTH (BEAKER) (test 14.9 % 11.7-14.4 zihp=021) PLATELET COUNT (BEAKER) (test jypd=122) 390 K/CU MM 150-450 MEAN PLATELET VOLUME (BEAKER) (test ewqi=267) 11.9 fL 9.4-12.3 NUCLEATED RED BLOOD CELLS (BEAKER) (test 0 /100 WBC 0-0 jvko=446) NEUTROPHILS RELATIVE PERCENT (BEAKER) (test 55 % muue=736) LYMPHOCYTES RELATIVE PERCENT (BEAKER) (test 24 % hcss=192) MONOCYTES RELATIVE PERCENT (BEAKER) (test 12 % bgul=723) EOSINOPHILS RELATIVE PERCENT (BEAKER) (test 7 % zjrc=979) BASOPHILS RELATIVE PERCENT (BEAKER) (test 1 % eqzu=190) NEUTROPHILS ABSOLUTE COUNT (BEAKER) (test 3.48 K/ L 1.56-6.13 ezub=352) LYMPHOCYTES ABSOLUTE COUNT (BEAKER) (test 1.53 K/ L 1.18-3.74 jiog=451) MONOCYTES ABSOLUTE COUNT (BEAKER) (test 0.77 K/ L 0.24-0.36 qsnw=948) EOSINOPHILS ABSOLUTE COUNT (BEAKER) (test 0.46 K/ L 0.04-0.36 ffui=496) BASOPHILS ABSOLUTE COUNT (BEAKER) (test 0.04 K/ L 0.01-0.08 derd=247) IMMATURE GRANULOCYTES-RELATIVE PERCENT (BEAKER) 0 % 0-1 (test mcez=4693) POCT-GLUCOSE [id number] 21:16:00 Test Item Value Reference Range Comments POC-GLUCOSE METER (BEAKER) 168 mg/dL 70-110 TESTED AT [address] (test qbnu=2907) [place] [address] AFB CULTURE + [id number] 13:04:00 Test Item Value Reference Range Comments CULTURE (BEAKER) (test No acid-fast bacilli isolated hljl=2237) in 42 days AFB SMEAR (BEAKER) (test No acid fast bacilli seen ljeh=597) FUNGUS CULTURE + [id number] 12:05:00 Test Item Value Reference Range Comments CULTURE (BEAKER) (test 2+ Clau dubliniensis uhcv=1931) FUNGUS SMEAR (BEAKER) (test No fungi seen vdix=0332) POCT-GLUCOSE [id number] 17:17:00 Test Item Value Reference Range Comments POC-GLUCOSE METER (BEAKER) 176 mg/dL 70-110 TESTED AT [address] (test hzao=9801) [place] [address] POCT-GLUCOSE [id number] 11:57:00 Test Item Value Reference Range Comments POC-GLUCOSE METER (BEAKER) 392 mg/dL 70-110 Notified JORDON STAPLETON/TESTED AT [facility] (test jcwe=5615) [address] [place] [address] POCT-GLUCOSE [id number] 08:53:00 Test Item Value Reference Range Comments POC-GLUCOSE METER (BEAKER) 226 mg/dL 70-110 TESTED AT [address] (test orlt=2859) [facility] [address] POCT-GLUCOSE [id number] 08:53:00 Test Item Value Reference Range Comments POC-GLUCOSE METER (BEAKER) 67 mg/dL 70-110 TESTED AT [address] (test byxa=3949) [facility] [address] BUN AND [id number] 07:15:00 Test Item Value Reference Range Comments BLOOD UREA NITROGEN 20 mg/dL 7-21 (BEAKER) (test rwsv=620) CREATININE (BEAKER) (test 0.64 mg/dL 0.57-1.25 plrw=196) EGFR (BEAKER) (test 138 mL/min/1.73 sq m ESTIMATED GFR IS NOT omzb=8137) ACCURATE CREATININE CLEARANCE IN PREDICTING GLOMERULAR FILTRATION RATE. ESTIMATED GFR IS NOT APPLICABLE FOR DIALYSIS PATIENTS. BASIC METABOLIC [id number] 07:15:00 Test Item Value Reference Range Comments SODIUM (BEAKER) (test 139 meq/L 136-145 qmgn=813) POTASSIUM (BEAKER) (test 4.8 meq/L 3.5-5.1 pzxn=624) CHLORIDE (BEAKER) (test 103 meq/L 98-107 fycy=332) CO2 (BEAKER) (test 28 meq/L 22-29 wtry=335) BLOOD UREA NITROGEN 20 mg/dL 7-21 (BEAKER) (test iina=126) CREATININE (BEAKER) (test 0.64 mg/dL 0.57-1.25 jwyf=189) GLUCOSE RANDOM (BEAKER) 82 mg/dL 70-105 (test zbns=928) CALCIUM (BEAKER) (test 9.0 mg/dL 8.4-10.2 hvpb=018) EGFR (BEAKER) (test 138 mL/min/1.73 sq m ESTIMATED GFR IS NOT xazx=7631) ACCURATE CREATININE CLEARANCE IN PREDICTING GLOMERULAR FILTRATION RATE. ESTIMATED GFR IS NOT APPLICABLE FOR DIALYSIS PATIENTS. CF RESPIRATORY [id number] 03:54:00 Test Item Value Reference Range Comments CULTURE (BEAKER) (test 4+ Pseudomonas aeruginosa ijfb=6688) CULTURE (BEAKER) (test PSEUDOMONAS 4+ Pseudomonas rsqo=7339) AERUGINOSA aeruginosamucoid colony typeof a third typeThis is an appended report. These organism results have been appended to a previously final verified report. Amikacin (test code=1) Aztreonam (test code=32) Cefepime (test code=51) Ceftazidime (test code=27) Ciprofloxacin (test code=7) Doripenem (test ahve=570) Gentamicin (test code=18) Imipenem (test code=19) Levofloxacin (test code=22) Meropenem (test code=34) Piperacillin (test code=24) Piperacillin + Tazobactam (test code=29) Tobramycin (test code=25) CULTURE (BEAKER) (test PSEUDOMONAS 4+ Pseudomonas anuh=2452) AERUGINOSA aeruginosaof a second typemucoid colony type Amikacin (test code=1) Aztreonam (test code=32) Cefepime (test code=51) Ceftazidime (test code=27) Ciprofloxacin (test code=7) Doripenem (test xqkf=531) Gentamicin (test code=18) Imipenem (test code=19) Levofloxacin (test code=22) Meropenem (test code=34) Piperacillin (test code=24) Piperacillin + Tazobactam (test code=29) Tobramycin (test code=25) 4+ Normal respiratory derick presentPOCT-GLUCOSE [id number] 22:30:00 Test Item Value Reference Range Comments POC-GLUCOSE METER (BEAKER) 136 mg/dL 70-110 TESTED AT [facility] [address] [facility] (test olao=0511) [facility] [address] POCT-GLUCOSE [id number] 17:29:00 Test Item Value Reference Range Comments POC-GLUCOSE METER (BEAKER) 148 mg/dL 70-110 TESTED AT [facility] [address] [facility] (test omzk=7088) [facility] [address] POCT-GLUCOSE [id number] 12:35:00 Test Item Value Reference Range Comments POC-GLUCOSE METER (BEAKER) 209 mg/dL 70-110 TESTED AT [facility] [address] [facility] (test iapr=6628) [facility] [address] POCT-GLUCOSE [id number] 08:39:00 Test Item Value Reference Range Comments POC-GLUCOSE METER (BEAKER) 122 mg/dL 70-110 TESTED AT [address] (test elpu=8689) [place] [address] BUN AND [id number] 07:26:00 Test Item Value Reference Range Comments BLOOD UREA NITROGEN 21 mg/dL 7-21 (BEAKER) (test wzhh=209) CREATININE (BEAKER) (test 0.69 mg/dL 0.57-1.25 href=036) EGFR (BEAKER) (test 127 mL/min/1.73 sq m ESTIMATED GFR IS NOT kezq=2383) ACCURATE CREATININE CLEARANCE IN PREDICTING GLOMERULAR FILTRATION RATE. ESTIMATED GFR IS NOT APPLICABLE FOR DIALYSIS PATIENTS. BASIC METABOLIC [id number] 07:26:00 Test Item Value Reference Range Comments SODIUM (BEAKER) (test 137 meq/L 136-145 vyrp=488) POTASSIUM (BEAKER) (test 4.6 meq/L 3.5-5.1 zxrc=997) CHLORIDE (BEAKER) (test 97 meq/L 98-107 drtn=038) CO2 (BEAKER) (test 30 meq/L 22-29 cslt=732) BLOOD UREA NITROGEN 21 mg/dL 7-21 (BEAKER) (test utum=840) CREATININE (BEAKER) (test 0.69 mg/dL 0.57-1.25 dwxg=408) GLUCOSE RANDOM (BEAKER) 110 mg/dL 70-105 (test gtqm=424) CALCIUM (BEAKER) (test 9.1 mg/dL 8.4-10.2 oyok=195) EGFR (BEAKER) (test 127 mL/min/1.73 sq m ESTIMATED GFR IS NOT dhmx=0973) ACCURATE CREATININE CLEARANCE IN PREDICTING GLOMERULAR FILTRATION RATE. ESTIMATED GFR IS NOT APPLICABLE FOR DIALYSIS PATIENTS. POCT-GLUCOSE [id number] 21:03:00 Test Item Value Reference Range Comments POC-GLUCOSE METER (BEAKER) 265 mg/dL 70-110 TESTED AT [place] [id number] [facility] (test abyx=9021) [place] [address] POCT-GLUCOSE [id number] 17:18:00 Test Item Value Reference Range Comments POC-GLUCOSE METER (BEAKER) 164 mg/dL 70-110 TESTED AT [facility] [address] [facility] (test vfnj=0244) [facility] [address] POCT-GLUCOSE [id number] 13:11:00 Test Item Value Reference Range Comments POC-GLUCOSE METER (BEAKER) 101 mg/dL 70-110 TESTED AT [place] [address] [facility] (test cfir=3369) [facility] [address] POCT-GLUCOSE [id number] 10:02:00 Test Item Value Reference Range Comments POC-GLUCOSE METER (BEAKER) 104 mg/dL 70-110 TESTED AT [place] [address] [facility] (test jkqh=5184) [facility] [address] BASIC METABOLIC [id number] 08:46:00 Test Item Value Reference Range Comments SODIUM (BEAKER) (test 138 meq/L 136-145 qals=529) POTASSIUM (BEAKER) (test 4.1 meq/L 3.5-5.1 jznb=952) CHLORIDE (BEAKER) (test 102 meq/L 98-107 dmwy=281) CO2 (BEAKER) (test 27 meq/L 22-29 wrdw=805) BLOOD UREA NITROGEN 15 mg/dL 7-21 (BEAKER) (test hszi=733) CREATININE (BEAKER) (test 0.62 mg/dL 0.57-1.25 expm=992) GLUCOSE RANDOM (BEAKER) 66 mg/dL 70-105 (test ojyr=448) CALCIUM (BEAKER) (test 8.9 mg/dL 8.4-10.2 skwr=077) EGFR (BEAKER) (test 143 mL/min/1.73 sq m ESTIMATED GFR IS NOT zhwh=5212) ACCURATE CREATININE CLEARANCE IN PREDICTING GLOMERULAR FILTRATION RATE. ESTIMATED GFR IS NOT APPLICABLE FOR DIALYSIS PATIENTS. BUN AND [id number] 05:18:00 Test Item Value Reference Range Comments BLOOD UREA NITROGEN 17 mg/dL 7-21 (BEAKER) (test gcru=909) CREATININE (BEAKER) (test 0.70 mg/dL 0.57-1.25 qirx=009) EGFR (BEAKER) (test 125 mL/min/1.73 sq m ESTIMATED GFR IS NOT rmoa=4817) ACCURATE CREATININE CLEARANCE IN PREDICTING GLOMERULAR FILTRATION RATE. ESTIMATED GFR IS NOT APPLICABLE FOR DIALYSIS PATIENTS. POCT-GLUCOSE [id number] 21:17:00 Test Item Value Reference Range Comments POC-GLUCOSE METER (BEAKER) 399 mg/dL 70-110 Notified JORDON STAPLETON/TESTED AT [facility] (test tfbe=2251) [address] [place], [place] [address] POCT-GLUCOSE [id number] 17:37:00 Test Item Value Reference Range Comments POC-GLUCOSE METER (BEAKER) 416 mg/dL 70-110 TESTED AT [address] (test qfmu=7817) [place] [address] POCT-GLUCOSE [id number] 12:45:00 Test Item Value Reference Range Comments POC-GLUCOSE METER (BEAKER) 291 mg/dL 70-110 TESTED AT [address] (test ynxg=2341) [place] [address] POCT-GLUCOSE [id number] 07:12:00 Test Item Value Reference Range Comments POC-GLUCOSE METER (BEAKER) 237 mg/dL 70-110 TESTED AT [address] (test tpsd=7910) [place] [address] BUN AND [id number] 04:32:00 Test Item Value Reference Range Comments BLOOD UREA NITROGEN 15 mg/dL 7-21 (BEAKER) (test pchf=952) CREATININE (BEAKER) (test 0.63 mg/dL 0.57-1.25 sduy=997) EGFR (BEAKER) (test 141 mL/min/1.73 sq m ESTIMATED GFR IS NOT wlvc=9292) ACCURATE CREATININE CLEARANCE IN PREDICTING GLOMERULAR FILTRATION RATE. ESTIMATED GFR IS NOT APPLICABLE FOR DIALYSIS PATIENTS. POCT-GLUCOSE [id number] 21:34:00 Test Item Value Reference Range Comments POC-GLUCOSE METER (BEAKER) 321 mg/dL 70-110 Notified JORDON STAPLETON/TESTED AT [facility] (test nfzg=9561) [address] [place], [place] [address] POCT-GLUCOSE [id number] 17:53:00 Test Item Value Reference Range Comments POC-GLUCOSE METER (BEAKER) 392 mg/dL 70-110 TESTED AT [address] (test ncyy=0775) [place] [address] POCT-GLUCOSE [id number] 12:39:00 Test Item Value Reference Range Comments POC-GLUCOSE METER (BEAKER) 306 mg/dL 70-110 TESTED AT [address] (test flvh=4068) [place] [address] POCT-GLUCOSE [id number] 08:24:00 Test Item Value Reference Range Comments POC-GLUCOSE METER (BEAKER) 304 mg/dL 70-110 TESTED AT [address] (test xvoo=1232) [place] [address] BUN AND [id number] 05:48:00 Test Item Value Reference Range Comments BLOOD UREA NITROGEN 19 mg/dL 7-21 (BEAKER) (test gvve=812) CREATININE (BEAKER) (test 0.91 mg/dL 0.57-1.25 zlhq=458) EGFR (BEAKER) (test 92 mL/min/1.73 sq m ESTIMATED GFR IS NOT cmjx=8323) ACCURATE CREATININE CLEARANCE IN PREDICTING GLOMERULAR FILTRATION RATE. ESTIMATED GFR IS NOT APPLICABLE FOR DIALYSIS PATIENTS. POCT-GLUCOSE [id number] 21:41:00 Test Item Value Reference Range Comments POC-GLUCOSE METER (BEAKER) 221 mg/dL 70-110 TESTED AT [address] (test wvly=2648) [place] [address] POCT-GLUCOSE [id number] 17:13:00 Test Item Value Reference Range Comments POC-GLUCOSE METER (BEAKER) 321 mg/dL 70-110 Notified RN or MD Patient (test ysbb=0368) refused repeat test/TESTED AT [place] [address] BUN AND [id number] 16:20:00 Test Item Value Reference Range Comments BLOOD UREA NITROGEN 10 mg/dL 7-21 (BEAKER) (test pdwi=096) CREATININE (BEAKER) (test 0.60 mg/dL 0.57-1.25 hzkl=590) EGFR (BEAKER) (test 149 mL/min/1.73 sq m ESTIMATED GFR IS NOT fbsf=9226) ACCURATE CREATININE CLEARANCE IN PREDICTING GLOMERULAR FILTRATION RATE. ESTIMATED GFR IS NOT APPLICABLE FOR DIALYSIS PATIENTS. POCT-GLUCOSE [id number] 11:55:00 Test Item Value Reference Range Comments POC-GLUCOSE METER (BEAKER) 200 mg/dL 70-110 TESTED AT [address] (test bsaf=0873) [place] [address] POCT-GLUCOSE [id number] 08:16:00 Test Item Value Reference Range Comments POC-GLUCOSE METER (BEAKER) 419 mg/dL 70-110 TESTED AT [address] (test mbox=7439) [facility] [address] POCT-GLUCOSE [id number] 21:09:00 Test Item Value Reference Range Comments POC-GLUCOSE METER (BEAKER) 376 mg/dL 70-110 TESTED AT [address] (test vlhn=1461) [facility] [address] POCT-GLUCOSE [id number] 17:27:00 Test Item Value Reference Range Comments POC-GLUCOSE METER (BEAKER) 267 mg/dL 70-110 TESTED AT [address] (test jarv=4339) [facility] [address] POCT-GLUCOSE [id number] 13:54:00 Test Item Value Reference Range Comments POC-GLUCOSE METER (BEAKER) 197 mg/dL 70-110 TESTED AT [address] (test roaj=4275) [facility] [address] POCT-GLUCOSE [id number] 12:34:00 Test Item Value Reference Range Comments POC-GLUCOSE METER (BEAKER) > mg/dL 70-110 OUTSIDE MEASURING RANGETESTED AT (test mpqk=0227) [address] [address] POCT-GLUCOSE [id number] 08:15:00 Test Item Value Reference Range Comments POC-GLUCOSE METER (BEAKER) 387 mg/dL 70-110 Notified JORDON STAPLETON/TESTED AT [facility] (test strn=3617) [address] [place] [address] BASIC METABOLIC [id number] 05:17:00 Test Item Value Reference Range Comments SODIUM (BEAKER) (test 136 meq/L 136-145 vucn=508) POTASSIUM (BEAKER) (test 4.3 meq/L 3.5-5.1 wzgx=075) CHLORIDE (BEAKER) (test 101 meq/L 98-107 dxuw=001) CO2 (BEAKER) (test 24 meq/L 22-29 ceou=041) BLOOD UREA NITROGEN 10 mg/dL 7-21 (BEAKER) (test aoeg=491) CREATININE (BEAKER) (test 0.73 mg/dL 0.57-1.25 yzhc=477) GLUCOSE RANDOM (BEAKER) 273 mg/dL 70-105 (test ybua=239) CALCIUM (BEAKER) (test 8.6 mg/dL 8.4-10.2 xpsj=150) EGFR (BEAKER) (test 119 mL/min/1.73 sq m ESTIMATED GFR IS NOT ktdz=5192) ACCURATE CREATININE CLEARANCE IN PREDICTING GLOMERULAR FILTRATION RATE. ESTIMATED GFR IS NOT APPLICABLE FOR DIALYSIS PATIENTS. SPIN/CONCENTRATION [id number] 05:13:00 Test Item Value Reference Range Comments CONCENTRATION CHARGED (BEAKER) (test xxkg=6482) Done URINALYSIS W/ [id number] 01:00:00 Test Item Value Reference Range Comments COLOR (BEAKER) (test qqcb=087) Light Yellow CLARITY (BEAKER) (test odap=951) Clear SPECIFIC GRAVITY UA (BEAKER) (test iplx=413) 1.028 1.001-1.035 PH UA (BEAKER) (test cgad=346) 7.0 5.0-8.0 PROTEIN UA (BEAKER) (test afuk=470) 20 mg/dL Negative GLUCOSE UA (BEAKER) (test kuyg=433) >1000 mg/dL Negative KETONES UA (BEAKER) (test fepj=042) Negative Negative BILIRUBIN UA (BEAKER) (test mute=773) Negative Negative BLOOD UA (BEAKER) (test qbpa=915) Negative Negative NITRITE UA (BEAKER) (test ekab=749) Negative Negative LEUKOCYTE ESTERASE UA (BEAKER) (test wztr=259) Negative Negative UROBILINOGEN UA (BEAKER) (test hhju=199) 0.2 mg/dL 0.2-1.0 RBC UA (BEAKER) (test lbjl=731) 1 /HPF WBC UA (BEAKER) (test weyz=907) < /HPF SQUAMOUS EPITHELIAL (BEAKER) (test hmvj=817) 1 /HPF SOURCE(BEAKER) (test ucus=8197) Urine, Voided SCREEN, [id number] 00:55:00 Test Item Value Reference Range Comments TEST URINE (BEAKER) (test ztqp=917) Negative POCT-GLUCOSE [id number] 21:10:00 Test Item Value Reference Range Comments POC-GLUCOSE METER (BEAKER) 342 mg/dL 70-110 TESTED AT [facility] [address] [facility] (test otit=9380) [facility] [address] HEMOGLOBIN [id number] 19:26:00 Test Item Value Reference Range Comments HEMOGLOBIN A1C (BEAKER) (test tarb=291) 15.4 % 4.3-6.1 POCT-GLUCOSE [id number] 19:20:00 Test Item Value Reference Range Comments POC-GLUCOSE METER (BEAKER) 470 mg/dL 70-110 TESTED AT [facility] [address] [facility] (test htem=2180) [facility] [address] COMPREHENSIVE METABOLIC [id number] 19:10:00 Test Item Value Reference Range Comments TOTAL PROTEIN (BEAKER) 7.3 gm/dL 6.0-8.3 (test lhqy=480) ALBUMIN (BEAKER) (test 3.2 g/dL 3.5-5.0 krnq=2090) ALKALINE PHOSPHATASE 129 U/L 40-150 (BEAKER) (test mdil=887) BILIRUBIN TOTAL (BEAKER) < mg/dL 0.2-1.2 (test pjjr=849) SODIUM (BEAKER) (test 138 meq/L 136-145 qrwa=051) POTASSIUM (BEAKER) (test 4.4 meq/L 3.5-5.1 mbhs=479) CHLORIDE (BEAKER) (test 99 meq/L 98-107 geua=114) CO2 (BEAKER) (test 29 meq/L 22-29 tyko=624) BLOOD UREA NITROGEN 6 mg/dL 7-21 (BEAKER) (test uita=670) CREATININE (BEAKER) (test 0.81 mg/dL 0.57-1.25 hyhy=108) GLUCOSE RANDOM (BEAKER) 515 mg/dL 70-105 (test drsc=890) CALCIUM (BEAKER) (test 9.1 mg/dL 8.4-10.2 dglx=890) AST (SGOT) (BEAKER) (test 9 U/L 5-34 yjqk=513) ALT (SGPT) (BEAKER) (test 6 U/L 6-55 ykmv=369) EGFR (BEAKER) (test 105 mL/min/1.73 sq ESTIMATED GFR IS NOT jumn=5586) m ACCURATE CREATININE CLEARANCE IN PREDICTING GLOMERULAR FILTRATION RATE. ESTIMATED GFR IS NOT APPLICABLE FOR DIALYSIS PATIENTS. [id number] 19:07:00 Test Item Value Reference Range Comments PHOSPHORUS (BEAKER) (test uhwm=982) 3.4 mg/dL 2.3-4.7 [id number] 19:07:00 Test Item Value Reference Range Comments MAGNESIUM (BEAKER) (test exvc=824) 1.5 mg/dL 1.6-2.6 GAMMA GLUTAMYL TRANSFERASE (GGT)[id number] 19:07:00 Test Item Value Reference Range Comments GAMMA GLUTAMYL TRANSFERASE (BEAKER) (test dulz=368) 24 U/L 9-64 CBC W/PLT COUNT & AUTO [id number] 18:40:00 Test Item Value Reference Range Comments WHITE BLOOD CELL COUNT (BEAKER) (test vrvb=951) 8.4 K/ L 3.5-10.5 RED BLOOD CELL COUNT (BEAKER) (test pxji=922) 4.51 M/ L 3.93-5.22 HEMOGLOBIN (BEAKER) (test mqyy=226) 11.4 GM/DL 11.2-15.7 HEMATOCRIT (BEAKER) (test pmcj=269) 37.0 % 34.1-44.9 MEAN CORPUSCULAR VOLUME (BEAKER) (test mwum=123) 82.0 fL 79.4-94.8 MEAN CORPUSCULAR HEMOGLOBIN (BEAKER) (test 25.3 pg 25.6-32.2 ydgm=795) MEAN CORPUSCULAR HEMOGLOBIN CONC (BEAKER) (test 30.8 GM/DL 32.2-35.5 jqul=983) RED CELL DISTRIBUTION WIDTH (BEAKER) (test 14.6 % 11.7-14.4 rnuv=870) PLATELET COUNT (BEAKER) (test ravi=015) 302 K/CU MM 150-450 MEAN PLATELET VOLUME (BEAKER) (test fnxz=277) 12.4 fL 9.4-12.3 NUCLEATED RED BLOOD CELLS (BEAKER) (test 0 /100 WBC 0-0 rdhh=360) NEUTROPHILS RELATIVE PERCENT (BEAKER) (test 68 % ejmp=024) LYMPHOCYTES RELATIVE PERCENT (BEAKER) (test 20 % asez=012) MONOCYTES RELATIVE PERCENT (BEAKER) (test 8 % khvi=876) EOSINOPHILS RELATIVE PERCENT (BEAKER) (test 3 % dpsk=872) BASOPHILS RELATIVE PERCENT (BEAKER) (test 0 % atsi=591) NEUTROPHILS ABSOLUTE COUNT (BEAKER) (test 5.74 K/ L 1.56-6.13 kosx=420) LYMPHOCYTES ABSOLUTE COUNT (BEAKER) (test 1.66 K/ L 1.18-3.74 vgku=165) MONOCYTES ABSOLUTE COUNT (BEAKER) (test 0.70 K/ L 0.24-0.36 sghk=217) EOSINOPHILS ABSOLUTE COUNT (BEAKER) (test 0.28 K/ L 0.04-0.36 fflw=820) BASOPHILS ABSOLUTE COUNT (BEAKER) (test 0.03 K/ L 0.01-0.08 egeu=356) IMMATURE GRANULOCYTES-RELATIVE PERCENT (BEAKER) 0 % 0-1 (test jkoy=8752) AFB CULTURE + [id number] 07:09:00 Test Item Value Reference Range Comments CULTURE (BEAKER) (test No acid-fast bacilli isolated rfmx=8026) in 42 days AFB SMEAR (BEAKER) (test No acid fast bacilli seen bqvg=483) POCT-GLUCOSE [id number] 12:37:00 Test Item Value Reference Range Comments POC-GLUCOSE METER (BEAKER) 215 mg/dL 70-110 TESTED AT [address] (test cmos=8736) [place] [id number] POCT-GLUCOSE [id number] 08:48:00 Test Item Value Reference Range Comments POC-GLUCOSE METER (BEAKER) 264 mg/dL 70-110 TESTED AT [address] (test hhxf=7038) [place] [address] [id number] 06:25:00 Test Item Value Reference Range Comments PHOSPHORUS (BEAKER) (test yfpq=386) 4.3 mg/dL 2.3-4.7 [id number] 06:25:00 Test Item Value Reference Range Comments MAGNESIUM (BEAKER) (test pjwu=462) 1.8 mg/dL 1.6-2.6 BASIC METABOLIC [id number] 06:25:00 Test Item Value Reference Range Comments SODIUM (BEAKER) (test 140 meq/L 136-145 xxph=163) POTASSIUM (BEAKER) (test 4.5 meq/L 3.5-5.1 bypw=987) CHLORIDE (BEAKER) (test 103 meq/L 98-107 jdlm=530) CO2 (BEAKER) (test 27 meq/L 22-29 dvlq=394) BLOOD UREA NITROGEN 18 mg/dL 7-21 (BEAKER) (test zefm=841) CREATININE (BEAKER) (test 0.74 mg/dL 0.57-1.25 vimd=354) GLUCOSE RANDOM (BEAKER) 253 mg/dL 70-105 (test xrva=806) CALCIUM (BEAKER) (test 8.0 mg/dL 8.4-10.2 pcix=006) EGFR (BEAKER) (test 117 mL/min/1.73 sq m ESTIMATED GFR IS NOT aywh=6630) ACCURATE CREATININE CLEARANCE IN PREDICTING GLOMERULAR FILTRATION RATE. ESTIMATED GFR IS NOT APPLICABLE FOR DIALYSIS PATIENTS. CBC W/PLT COUNT & AUTO [id number] 06:01:00 Test Item Value Reference Range Comments WHITE BLOOD CELL COUNT (BEAKER) (test ykep=941) 11.6 K/ L 4.0-10.0 RED BLOOD CELL COUNT (BEAKER) (test cbpg=576) 3.80 M/ L 4.00-5.00 HEMOGLOBIN (BEAKER) (test apmo=658) 10.4 GM/DL 12.0-15.0 HEMATOCRIT (BEAKER) (test nkty=457) 33.1 % 36.0-45.0 MEAN CORPUSCULAR VOLUME (BEAKER) (test djjh=106) 87.1 fL 82.0-99.0 MEAN CORPUSCULAR HEMOGLOBIN (BEAKER) (test 27.4 pg 27.0-33.0 kfhb=470) MEAN CORPUSCULAR HEMOGLOBIN CONC (BEAKER) (test 31.4 GM/DL 32.0-36.0 ukka=734) RED CELL DISTRIBUTION WIDTH (BEAKER) (test 16.5 % 10.3-14.2 equi=011) PLATELET COUNT (BEAKER) (test kikp=872) 324 K/CU MM 150-430 MEAN PLATELET VOLUME (BEAKER) (test ygeq=656) 8.8 fL 6.5-10.5 NUCLEATED RED BLOOD CELLS (BEAKER) (test 0 /100 WBC 0-0 fiev=284) NEUTROPHILS RELATIVE PERCENT (BEAKER) (test 63 % lnnz=421) LYMPHOCYTES RELATIVE PERCENT (BEAKER) (test 24 % phdf=813) MONOCYTES RELATIVE PERCENT (BEAKER) (test 9 % vcjv=566) EOSINOPHILS RELATIVE PERCENT (BEAKER) (test 3 % nzba=837) BASOPHILS RELATIVE PERCENT (BEAKER) (test 1 % ehjv=904) NEUTROPHILS ABSOLUTE COUNT (BEAKER) (test 7.31 K/ L 1.80-8.00 xkmc=373) LYMPHOCYTES ABSOLUTE COUNT (BEAKER) (test 2.77 K/ L 1.48-4.50 gsaa=732) MONOCYTES ABSOLUTE COUNT (BEAKER) (test 1.03 K/ L 0.00-1.30 rxit=250) EOSINOPHILS ABSOLUTE COUNT (BEAKER) (test 0.39 K/ L 0.00-0.50 gvel=775) BASOPHILS ABSOLUTE COUNT (BEAKER) (test 0.07 K/ L 0.00-0.20 etrc=684) 0.00CF RESPIRATORY [id number] 00:39:00 Test Item Value Reference Range Comments CULTURE (BEAKER) (test PSEUDOMONAS 4+ Pseudomonas uyxv=5701) AERUGINOSA aeruginosa (MUCOID-PHENOTYPE) (Mucoid-phenotype)mu coid colony type [...] code=7) Resistant <0 or >1 Doripenem (test ikvj=568) Susceptible 0-2 , Resistant <0 or >2 [...] + Clavulanic Acid (test code=80) Tigecycline (test vesj=461) Tobramycin (test code=25) Susceptible 0-4 , Resistant <0 or >4 Trimethoprim + Sulfamethoxazole (test code=47) CULTURE (BEAKER) (test PSEUDOMONAS 4+ Pseudomonas zjza=1492) AERUGINOSA aeruginosaof a second type Amikacin (test code=1) Susceptible 0-16 , Resistant <0 or >16 Ampicillin (test otji=255) Ampicillin + Sulbactam (test code=62) Aztreonam (test code=32) Susceptible 0-8 , Resistant <0 or >8 Cefazolin (test code=92) Cefepime (test code=51) Susceptible 0-8 , Resistant <0 or >8 Ceftazidime (test Susceptible 0-8 , code=27) Resistant <0 or >8 Ceftriaxone (test wxjw=248) Ciprofloxacin (test Susceptible 0-1 , code=7) Resistant <0 or >1 Doripenem (test kfxg=770) Susceptible 0-2 , Resistant <0 or >2 Ertapenem (test hnrn=093) Gentamicin (test code=18) Susceptible 0-4 , Resistant <0 or >4 Imipenem (test code=19) Susceptible 0-2 , Resistant <0 or >2 Levofloxacin (test Susceptible 0-2 , code=22) Resistant <0 or >2 Meropenem (test code=34) Susceptible 0-2 , Resistant <0 or >2 Minocycline (test mmsp=257) Nitrofurantoin (test isns=151) Piperacillin (test Susceptible 0-16 , code=24) Resistant <0 or >16 Piperacillin + Tazobactam Susceptible 0-16 , (test code=29) Resistant <0 or >16 Tetracycline (test code=22) Ticarcillin + Clavulanic Acid (test ngbb=623) Tigecycline (test ecxz=7493) Tobramycin (test code=25) Susceptible 0-4 , Resistant <0 or >4 Trimethoprim + Sulfamethoxazole (test oltg=167) 3+ Normal respiratory derick presentPOCT-GLUCOSE [id number] 21:38:00 Test Item Value Reference Range Comments POC-GLUCOSE METER (KIAKER) 221 mg/dL 70-110 TESTED AT [facility] [address] (test obln=9843) [facility] [address] POCT-GLUCOSE [id number] 17:55:00 Test Item Value Reference Range Comments POC-GLUCOSE METER (BEAKER) 146 mg/dL 70-110 TESTED AT [facility] [address] [facility] (test kdqd=1025) [facility] [address] POCT-GLUCOSE [id number] 12:18:00 Test Item Value Reference Range Comments POC-GLUCOSE METER (BEAKER) 249 mg/dL 70-110 TESTED AT [place] [id number] [facility] (test qwtv=4121) [facility] [address] CBC W/PLT COUNT & AUTO [id number] 11:26:00 Test Item Value Reference Range Comments WHITE BLOOD CELL COUNT (BEAKER) (test eahi=644) 11.6 K/ L 4.0-10.0 RED BLOOD CELL COUNT (BEAKER) (test qnhd=754) 3.75 M/ L 4.00-5.00 HEMOGLOBIN (BEAKER) (test osvb=813) 10.4 GM/DL 12.0-15.0 HEMATOCRIT (BEAKER) (test vhvi=276) 32.6 % 36.0-45.0 MEAN CORPUSCULAR VOLUME (BEAKER) (test xspo=048) 86.9 fL 82.0-99.0 MEAN CORPUSCULAR HEMOGLOBIN (BEAKER) (test 27.8 pg 27.0-33.0 ogih=009) MEAN CORPUSCULAR HEMOGLOBIN CONC (BEAKER) (test 32.0 GM/DL 32.0-36.0 ajsn=735) RED CELL DISTRIBUTION WIDTH (BEAKER) (test 16.1 % 10.3-14.2 iuaq=982) PLATELET COUNT (BEAKER) (test fyjg=598) 303 K/CU MM 150-430 MEAN PLATELET VOLUME (BEAKER) (test syrp=427) 8.8 fL 6.5-10.5 NUCLEATED RED BLOOD CELLS (BEAKER) (test 0 /100 WBC 0-0 wwon=030) NEUTROPHILS RELATIVE PERCENT (BEAKER) (test 71 % xeve=198) LYMPHOCYTES RELATIVE PERCENT (BEAKER) (test 19 % jdpc=804) MONOCYTES RELATIVE PERCENT (BEAKER) (test 8 % iezl=493) EOSINOPHILS RELATIVE PERCENT (BEAKER) (test 1 % znqe=364) BASOPHILS RELATIVE PERCENT (BEAKER) (test 0 % jhvp=326) NEUTROPHILS ABSOLUTE COUNT (BEAKER) (test 8.28 K/ L 1.80-8.00 svut=074) LYMPHOCYTES ABSOLUTE COUNT (BEAKER) (test 2.20 K/ L 1.48-4.50 nmtf=383) MONOCYTES ABSOLUTE COUNT (BEAKER) (test 0.99 K/ L 0.00-1.30 txqc=007) EOSINOPHILS ABSOLUTE COUNT (BEAKER) (test 0.12 K/ L 0.00-0.50 mdvj=723) BASOPHILS ABSOLUTE COUNT (BEAKER) (test 0.03 K/ L 0.00-0.20 vsoo=984) [id number] 11:23:00 Test Item Value Reference Range Comments MAGNESIUM (BEAKER) (test cgfu=193) 1.3 mg/dL 1.6-2.6 BASIC METABOLIC [id number] 11:23:00 Test Item Value Reference Range Comments SODIUM (BEAKER) (test 139 meq/L 136-145 jcoj=991) POTASSIUM (BEAKER) (test 3.1 meq/L 3.5-5.1 bbrl=121) CHLORIDE (BEAKER) (test 103 meq/L 98-107 fwlr=318) CO2 (BEAKER) (test 26 meq/L 22-29 qnyy=560) BLOOD UREA NITROGEN 17 mg/dL 7-21 (BEAKER) (test azah=228) CREATININE (BEAKER) (test 0.69 mg/dL 0.57-1.25 qsms=009) GLUCOSE RANDOM (BEAKER) 222 mg/dL 70-105 (test bhop=010) CALCIUM (BEAKER) (test 8.6 mg/dL 8.4-10.2 jywl=096) EGFR (BEAKER) (test 127 mL/min/1.73 sq m ESTIMATED GFR IS NOT jlmj=5756) ACCURATE CREATININE CLEARANCE IN PREDICTING GLOMERULAR FILTRATION RATE. ESTIMATED GFR IS NOT APPLICABLE FOR DIALYSIS PATIENTS. SCREEN, [id number] 11:22:00 Test Item Value Reference Range Comments TEST URINE (BEAKER) (test iakq=642) Negative POCT-GLUCOSE [id number] 08:09:00 Test Item Value Reference Range Comments POC-GLUCOSE METER (BEAKER) 264 mg/dL 70-110 TESTED AT [facility] [address] [facility] (test yppd=1503) [facility] [address] POCT-GLUCOSE [id number] 22:02:00 Test Item Value Reference Range Comments POC-GLUCOSE METER (BEAKER) 221 mg/dL 70-110 TESTED AT [address] (test yvfk=5381) [facility] [address] POCT-GLUCOSE [id number] 17:16:00 Test Item Value Reference Range Comments POC-GLUCOSE METER (BEAKER) 173 mg/dL 70-110 TESTED AT [address] (test cfos=1286) [facility] [address] POCT-GLUCOSE [id number] 13:38:00 Test Item Value Reference Range Comments POC-GLUCOSE METER (BEAKER) 155 mg/dL 70-110 TESTED AT [address] (test mvnp=5003) [facility] [address] POCT-GLUCOSE [id number] 09:15:00 Test Item Value Reference Range Comments POC-GLUCOSE METER (BEAKER) 258 mg/dL 70-110 TESTED AT [address] (test wtsp=9264) [place] [id number] CBC W/PLT COUNT & AUTO [id number] 06:38:00 Test Item Value Reference Range Comments WHITE BLOOD CELL COUNT (BEAKER) (test uexw=236) 11.0 K/ L 4.0-10.0 RED BLOOD CELL COUNT (BEAKER) (test idwc=072) 3.81 M/ L 4.00-5.00 HEMOGLOBIN (BEAKER) (test zyxv=514) 10.2 GM/DL 12.0-15.0 HEMATOCRIT (BEAKER) (test mwga=740) 33.4 % 36.0-45.0 MEAN CORPUSCULAR VOLUME (BEAKER) (test oghq=904) 87.8 fL 82.0-99.0 MEAN CORPUSCULAR HEMOGLOBIN (BEAKER) (test 26.8 pg 27.0-33.0 aktz=255) MEAN CORPUSCULAR HEMOGLOBIN CONC (BEAKER) (test 30.5 GM/DL 32.0-36.0 vztg=343) RED CELL DISTRIBUTION WIDTH (BEAKER) (test 14.8 % 10.3-14.2 gipf=712) PLATELET COUNT (BEAKER) (test wxak=673) 277 K/CU MM 150-430 MEAN PLATELET VOLUME (BEAKER) (test beva=391) 8.8 fL 6.5-10.5 NUCLEATED RED BLOOD CELLS (BEAKER) (test 0 /100 WBC 0-0 izqz=896) NEUTROPHILS RELATIVE PERCENT (BEAKER) (test 77 % yqek=236) LYMPHOCYTES RELATIVE PERCENT (BEAKER) (test 15 % fnim=446) MONOCYTES RELATIVE PERCENT (BEAKER) (test 8 % muse=919) EOSINOPHILS RELATIVE PERCENT (BEAKER) (test 0 % czbo=595) BASOPHILS RELATIVE PERCENT (BEAKER) (test 0 % pjkh=909) NEUTROPHILS ABSOLUTE COUNT (BEAKER) (test 8.41 K/ L 1.80-8.00 minr=176) LYMPHOCYTES ABSOLUTE COUNT (BEAKER) (test 1.60 K/ L 1.48-4.50 wegk=044) MONOCYTES ABSOLUTE COUNT (BEAKER) (test 0.87 K/ L 0.00-1.30 tacq=595) EOSINOPHILS ABSOLUTE COUNT (BEAKER) (test 0.03 K/ L 0.00-0.50 aqem=394) BASOPHILS ABSOLUTE COUNT (BEAKER) (test 0.04 K/ L 0.00-0.20 qsfo=345) [id number] 06:33:00 Test Item Value Reference Range Comments MAGNESIUM (BEAKER) (test bosk=371) 1.3 mg/dL 1.6-2.6 BASIC METABOLIC [id number] 06:33:00 Test Item Value Reference Range Comments SODIUM (BEAKER) (test 136 meq/L 136-145 evbb=301) POTASSIUM (BEAKER) (test 3.3 meq/L 3.5-5.1 oddm=615) CHLORIDE (BEAKER) (test 102 meq/L 98-107 hepq=790) CO2 (BEAKER) (test 25 meq/L 22-29 xskw=435) BLOOD UREA NITROGEN 16 mg/dL 7-21 (BEAKER) (test kuyd=223) CREATININE (BEAKER) (test 0.69 mg/dL 0.57-1.25 ntjb=857) GLUCOSE RANDOM (BEAKER) 222 mg/dL 70-105 (test qagd=880) CALCIUM (BEAKER) (test 8.3 mg/dL 8.4-10.2 onlb=560) EGFR (BEAKER) (test 127 mL/min/1.73 sq m ESTIMATED GFR IS NOT fchu=2444) ACCURATE CREATININE CLEARANCE IN PREDICTING GLOMERULAR FILTRATION RATE. ESTIMATED GFR IS NOT APPLICABLE FOR DIALYSIS PATIENTS. POCT-GLUCOSE [id number] 22:04:00 Test Item Value Reference Range Comments POC-GLUCOSE METER (BEAKER) 336 mg/dL 70-110 TESTED AT [address] (test anxw=7991) [place] [address] POCT-GLUCOSE [id number] 17:40:00 Test Item Value Reference Range Comments POC-GLUCOSE METER (BEAKER) 281 mg/dL 70-110 TESTED AT [address] (test cbvj=5420) [place] [address] POCT-GLUCOSE [id number] 11:41:00 Test Item Value Reference Range Comments POC-GLUCOSE METER (BEAKER) 412 mg/dL 70-110 TESTED AT [address] (test nojo=8121) [place] [address] BASIC METABOLIC [id number] 09:00:00 Test Item Value Reference Range Comments SODIUM (BEAKER) (test 133 meq/L 136-145 vizh=613) POTASSIUM (BEAKER) (test 3.9 meq/L 3.5-5.1 tjwn=549) CHLORIDE (BEAKER) (test 100 meq/L 98-107 kcdk=603) CO2 (BEAKER) (test 25 meq/L 22-29 uipe=251) BLOOD UREA NITROGEN 16 mg/dL 7-21 (BEAKER) (test cpav=901) CREATININE (BEAKER) (test 1.02 mg/dL 0.57-1.25 kouv=082) GLUCOSE RANDOM (BEAKER) 522 mg/dL 70-105 (test hhle=653) CALCIUM (BEAKER) (test 9.0 mg/dL 8.4-10.2 suhq=603) EGFR (BEAKER) (test 81 mL/min/1.73 sq m ESTIMATED GFR IS NOT ltcm=4731) ACCURATE CREATININE CLEARANCE IN PREDICTING GLOMERULAR FILTRATION RATE. ESTIMATED GFR IS NOT APPLICABLE FOR DIALYSIS PATIENTS. POCT-GLUCOSE [id number] 08:49:00 Test Item Value Reference Range Comments POC-GLUCOSE METER (BEAKER) 444 mg/dL 70-110 Notified JORDON STAPLETON/TESTED AT [facility] (test lelo=8002) [address] [place] [address] [id number] 08:44:00 Test Item Value Reference Range Comments MAGNESIUM (BEAKER) (test hisx=387) 1.3 mg/dL 1.6-2.6 CBC W/PLT COUNT & AUTO [id number] 08:26:00 Test Item Value Reference Range Comments WHITE BLOOD CELL COUNT (BEAKER) (test wusj=242) 9.4 K/ L 4.0-10.0 RED BLOOD CELL COUNT (BEAKER) (test vsix=041) 3.89 M/ L 4.00-5.00 HEMOGLOBIN (BEAKER) (test eine=406) 10.4 GM/DL 12.0-15.0 HEMATOCRIT (BEAKER) (test vhly=558) 34.5 % 36.0-45.0 MEAN CORPUSCULAR VOLUME (BEAKER) (test hpyf=505) 88.6 fL 82.0-99.0 MEAN CORPUSCULAR HEMOGLOBIN (BEAKER) (test 26.7 pg 27.0-33.0 jyji=283) MEAN CORPUSCULAR HEMOGLOBIN CONC (BEAKER) (test 30.1 GM/DL 32.0-36.0 ozcy=743) RED CELL DISTRIBUTION WIDTH (BEAKER) (test 14.6 % 10.3-14.2 gqlj=511) PLATELET COUNT (BEAKER) (test ywwu=631) 274 K/CU MM 150-430 MEAN PLATELET VOLUME (BEAKER) (test zobx=581) 8.7 fL 6.5-10.5 NUCLEATED RED BLOOD CELLS (BEAKER) (test 0 /100 WBC 0-0 bljs=034) NEUTROPHILS RELATIVE PERCENT (BEAKER) (test 77 % fzpi=691) LYMPHOCYTES RELATIVE PERCENT (BEAKER) (test 15 % jbzn=172) MONOCYTES RELATIVE PERCENT (BEAKER) (test 9 % qynr=600) EOSINOPHILS RELATIVE PERCENT (BEAKER) (test 0 % ingk=521) BASOPHILS RELATIVE PERCENT (BEAKER) (test 0 % rlbk=050) NEUTROPHILS ABSOLUTE COUNT (BEAKER) (test 7.16 K/ L 1.80-8.00 fjgk=828) LYMPHOCYTES ABSOLUTE COUNT (BEAKER) (test 1.39 K/ L 1.48-4.50 cgdd=186) MONOCYTES ABSOLUTE COUNT (BEAKER) (test 0.81 K/ L 0.00-1.30 gioe=675) EOSINOPHILS ABSOLUTE COUNT (BEAKER) (test 0.01 K/ L 0.00-0.50 qklp=617) BASOPHILS ABSOLUTE COUNT (BEAKER) (test 0.00 K/ L 0.00-0.20 ldnd=301) 0.00POCT-GLUCOSE [id number] 21:23:00 Test Item Value Reference Range Comments POC-GLUCOSE METER (BEAKER) 176 mg/dL 70-110 TESTED AT [address] (test veqo=8893) [facility] [address] HEMOGLOBIN [id number] 21:21:00 Test Item Value Reference Range Comments HEMOGLOBIN A1C (BEAKER) (test wkdr=705) 12.1 % 4.3-6.1 POCT-GLUCOSE [id number] 18:03:00 Test Item Value Reference Range Comments POC-GLUCOSE METER (BEAKER) 270 mg/dL 70-110 TESTED AT [address] (test bitd=6279) [facility] [address] POCT-GLUCOSE [id number] 11:22:00 Test Item Value Reference Range Comments POC-GLUCOSE METER (BEAKER) 347 mg/dL 70-110 Notified JORDON STAPLETON/TESTED AT [facility] (test iwdj=3528) [address] [place] [address] POCT-GLUCOSE [id number] 08:31:00 Test Item Value Reference Range Comments POC-GLUCOSE METER (BEAKER) 280 mg/dL 70-110 TESTED AT [address] (test snpy=0714) [facility] [address] POCT-GLUCOSE [id number] 06:03:00 Test Item Value Reference Range Comments POC-GLUCOSE METER (BEAKER) 277 mg/dL 70-110 TESTED AT [address] (test wwpf=6003) [facility] [address] POCT-GLUCOSE [id number] 22:13:00 Test Item Value Reference Range Comments POC-GLUCOSE METER (BEAKER) 404 mg/dL 70-110 TESTED AT [address] (test mjsx=8477) [facility] [address] POCT-GLUCOSE [id number] 17:49:00 Test Item Value Reference Range Comments POC-GLUCOSE METER (BEAKER) 485 mg/dL 70-110 Notified JORDON STAPLETON/TESTED AT [facility] (test xxhu=6373) [address] [place] [address] POCT-GLUCOSE [id number] 11:49:00 Test Item Value Reference Range Comments POC-GLUCOSE METER (BEAKER) 142 mg/dL 70-110 TESTED AT [facility] [address] [facility] (test jost=9736) [facility] [address] CBC W/PLT COUNT & AUTO [id number] 08:39:00 Test Item Value Reference Range Comments WHITE BLOOD CELL COUNT (BEAKER) (test apuc=406) 9.2 K/ L 4.0-10.0 RED BLOOD CELL COUNT (BEAKER) (test cimd=102) 4.24 M/ L 4.00-5.00 HEMOGLOBIN (BEAKER) (test qdgo=204) 11.6 GM/DL 12.0-15.0 HEMATOCRIT (BEAKER) (test hfjf=538) 37.7 % 36.0-45.0 MEAN CORPUSCULAR VOLUME (BEAKER) (test wzhj=200) 89.0 fL 82.0-99.0 MEAN CORPUSCULAR HEMOGLOBIN (BEAKER) (test 27.4 pg 27.0-33.0 urni=289) MEAN CORPUSCULAR HEMOGLOBIN CONC (BEAKER) (test 30.8 GM/DL 32.0-36.0 wqwc=503) RED CELL DISTRIBUTION WIDTH (BEAKER) (test 14.3 % 10.3-14.2 gpzd=421) PLATELET COUNT (BEAKER) (test yiem=161) 345 K/CU MM 150-430 MEAN PLATELET VOLUME (BEAKER) (test ousk=301) 9.3 fL 6.5-10.5 NUCLEATED RED BLOOD CELLS (BEAKER) (test 0 /100 WBC 0-0 pzhs=292) NEUTROPHILS RELATIVE PERCENT (BEAKER) (test 69 % qlcl=814) LYMPHOCYTES RELATIVE PERCENT (BEAKER) (test 22 % jcrm=236) MONOCYTES RELATIVE PERCENT (BEAKER) (test 7 % qred=164) EOSINOPHILS RELATIVE PERCENT (BEAKER) (test 3 % pnbn=949) BASOPHILS RELATIVE PERCENT (BEAKER) (test 0 % mljb=555) NEUTROPHILS ABSOLUTE COUNT (BEAKER) (test 6.30 K/ L 1.80-8.00 tqfb=046) LYMPHOCYTES ABSOLUTE COUNT (BEAKER) (test 2.00 K/ L 1.48-4.50 ucpz=424) MONOCYTES ABSOLUTE COUNT (BEAKER) (test 0.61 K/ L 0.00-1.30 kcgj=377) EOSINOPHILS ABSOLUTE COUNT (BEAKER) (test 0.26 K/ L 0.00-0.50 hzio=192) BASOPHILS ABSOLUTE COUNT (BEAKER) (test 0.03 K/ L 0.00-0.20 jwzk=896) 0.00POCT-GLUCOSE [id number] 08:05:00 Test Item Value Reference Range Comments POC-GLUCOSE METER (BEAKER) 380 mg/dL 70-110 Notified JORDON STAPLETON/TESTED AT [facility] (test feev=4880) [address] [facility] [address] COMPREHENSIVE METABOLIC [id number] 07:44:00 Test Item Value Reference Range Comments TOTAL PROTEIN (BEAKER) 7.1 gm/dL 6.0-8.3 (test ayah=704) ALBUMIN (BEAKER) (test 3.0 g/dL 3.5-5.0 wvxj=3203) ALKALINE PHOSPHATASE 119 U/L 40-150 (BEAKER) (test boml=415) BILIRUBIN TOTAL (BEAKER) 0.1 mg/dL 0.2-1.2 (test qlro=372) SODIUM (BEAKER) (test 135 meq/L 136-145 ufhf=409) POTASSIUM (BEAKER) (test 3.8 meq/L 3.5-5.1 xiai=010) CHLORIDE (BEAKER) (test 99 meq/L 98-107 wgoj=847) CO2 (BEAKER) (test 27 meq/L 22-29 kfpl=522) BLOOD UREA NITROGEN 3 mg/dL 7-21 (BEAKER) (test ebru=967) CREATININE (BEAKER) (test 0.77 mg/dL 0.57-1.25 gpsc=722) GLUCOSE RANDOM (BEAKER) 549 mg/dL 70-105 (test bbqx=088) CALCIUM (BEAKER) (test 8.8 mg/dL 8.4-10.2 ejaf=226) AST (SGOT) (BEAKER) (test 14 U/L 5-34 npot=592) ALT (SGPT) (BEAKER) (test 10 U/L 6-55 dxnd=514) EGFR (BEAKER) (test 112 mL/min/1.73 sq ESTIMATED GFR IS NOT fxwt=6784) m ACCURATE CREATININE CLEARANCE IN PREDICTING GLOMERULAR FILTRATION RATE. ESTIMATED GFR IS NOT APPLICABLE FOR DIALYSIS PATIENTS. [id number] 07:41:00 Test Item Value Reference Range Comments FERRITIN (BEAKER) (test purh=115) 126 ng/mL 5-275 Effective 09/11/2014: Reference Range ChangeNew: Male 5-275 Previous: Male 22-322 Female 5-275 Female 10-291TSH/FREE T4 IF [id number] 07:41:00 Test Item Value Reference Range Comments THYROID STIMULATING HORMONE (BEAKER) (test 1.94 uIU/mL 0.35-4.94 ddfg=285) [id number] 07:33:00 Test Item Value Reference Range Comments MAGNESIUM (BEAKER) (test nvob=161) 1.3 mg/dL 1.6-2.6 LIPID [id number] 07:33:00 Test Item Value Reference Range Comments TRIGLYCERIDES (BEAKER) (test iump=546) 115 mg/dL CHOLESTEROL (BEAKER) (test zleb=430) 135 mg/dL HDL CHOLESTEROL (BEAKER) (test sjtu=036) 48 mg/dL LDL CHOLESTEROL CALCULATED (BEAKER) (test 64 mg/dL rxhu=999) Triglyceride Reference Range: Low Risk <150 Borderline 150- 199 High Risk 200-499 Very High Risk >=500Cholesterol Reference Range: Low Risk <200 Borderline 200-239 High Risk > 240HDL Cholesterol Reference Range: Low Risk >=60 High Risk <40LDL Cholesterol Reference Range: Optimal <100 Near Optimal 100-129 Borderline 130-159 High 160-189 Very High >=[id number] 07:33:00 Test Item Value Reference Range Comments PREALBUMIN (BEAKER) (test ecuy=761) 13 mg/dL 14-45 IRON, TIBC, % SAT. (WITHOUT FERRITIN)2017-04-29 07:33:00 Test Item Value Reference Range Comments IRON (BEAKER) (test ezbo=840) 35 ug/dL 40-160 TOTAL IRON BINDING CAPACITY (BEAKER) (test 310 ug/dL 250-450 tcxq=417) IRON % SATURATION (2) (BEAKER) (test amft=9692) 11 % 20-55 [id number] 07:24:00 Test Item Value Reference Range Comments PROTIME (BEAKER) (test wcgq=304) 13.3 seconds 11.7-14.7 INR (BEAKER) (test mxxn=292) 1.0 <=5.9 PARTIAL THROMBOPLASTIN TIME (BEAKER) (test 35.2 seconds 22.5-36.0 awko=219) RECOMMENDED COUMADIN/WARFARIN INR THERAPY RANGESSTANDARD DOSE: 2.0 - 3.0 Includes: PROPHYLAXIS forvenous thrombosis, systemic embolization; TREATMENT for venous thrombosis and/or pulmonary embolus.HIGH RISK: Target INR is 2.5-3.5 for patients with mechanical heart valves.POCT-GLUCOSE [id number] 21:48:00 Test Item Value Reference Range Comments POC-GLUCOSE METER ([employer]) 289 mg/dL 70-110 TESTED AT [address] (test thtd=9064) [place] [address] POCT-GLUCOSE [id number] 18:49:00 Test Item Value Reference Range Comments POC-GLUCOSE METER ([facility]) 492 mg/dL 70-110 TESTED AT [address] (test enif=9671) [place] [address] CF RESPIRATORY [id number] 06:58:00 Test Item Value Reference Range Comments CULTURE (BEAKER) (test PSEUDOMONAS 1+ Pseudomonas agqt=8060) AERUGINOSA aeruginosa Amikacin (test code=1) Susceptible 0-16 [...] code=7) Resistant <0 or >1 Doripenem (test aswv=268) Susceptible 0-2 , Resistant <0 or >2 [...] + Clavulanic Acid (test code=80) Tigecycline (test qnip=411) Tobramycin (test code=25) Susceptible 0-4 , Resistant <0 or >4 Trimethoprim + Sulfamethoxazole (test code=47) CULTURE (BEAKER) (test PSEUDOMONAS 2+ Pseudomonas luqr=9792) AERUGINOSA aeruginosa (MUCOID-PHENOTYPE) (Mucoid-phenotype) Amikacin (test code=1) Susceptible 0-16 , Resistant <0 or >16 Ampicillin (test zszd=929) Ampicillin + Sulbactam (test code=62) Aztreonam (test code=32) Susceptible 0-8 , Resistant <0 or >8 Cefazolin (test code=92) Cefepime (test code=51) Susceptible 0-8 , Resistant <0 or >8 Ceftazidime (test Susceptible 0-8 , code=27) Resistant <0 or >8 Ceftriaxone (test eoiq=220) Ciprofloxacin (test Susceptible 0-1 , code=7) Resistant <0 or >1 Doripenem (test zjvv=960) Susceptible 0-2 , Resistant <0 or >2 Ertapenem (test lggo=566) Gentamicin (test code=18) Susceptible 0-4 , Resistant <0 or >4 Imipenem (test code=19) Levofloxacin (test Susceptible 0-2 , code=22) Resistant <0 or >2 Meropenem (test code=34) Minocycline (test olrv=606) Nitrofurantoin (test lhtg=252) Piperacillin (test Susceptible 0-16 , code=24) Resistant <0 or >16 Piperacillin + Tazobactam (test code=29) Tetracycline (test code=22) Ticarcillin + Clavulanic Acid (test wzau=514) Tigecycline (test fywu=5140) Tobramycin (test code=25) Susceptible 0-4 , Resistant <0 or >4 Trimethoprim + Sulfamethoxazole (test ymqo=217) 1+ Normal respiratory derick presentFUNGUS CULTURE + [id number] 11:05:00 Test Item Value Reference Range Comments CULTURE (BEAKER) (test xhog=2619) 1+ Clau glabrata FUNGUS SMEAR ([facility]) (test No fungi seen lksa=8687) POCT-GLUCOSE [id number] 12:28:00 Test Item Value Reference Range Comments POC-GLUCOSE METER (BEAKER) 112 mg/dL 70-110 TESTED AT [address] (test dlyx=9956) [place] [address] POCT-GLUCOSE [id number] 08:33:00 Test Item Value Reference Range Comments POC-GLUCOSE METER (BEAKER) 144 mg/dL 70-110 TESTED AT [address] (test jtey=4763) [place] [address] BUN AND [id number] 05:40:00 Test Item Value Reference Range Comments BLOOD UREA NITROGEN 17 mg/dL 7-21 ([facility]) (test dybx=360) CREATININE (AKER) (test 0.60 mg/dL 0.57-1.25 gcxk=233) EGFR (BEAKER) (test 149 mL/min/1.73 sq m ESTIMATED GFR IS NOT jboj=6698) ACCURATE CREATININE CLEARANCE IN PREDICTING GLOMERULAR FILTRATION RATE. ESTIMATED GFR IS NOT APPLICABLE FOR DIALYSIS PATIENTS. POCT-GLUCOSE [id number] 21:09:00 Test Item Value Reference Range Comments POC-GLUCOSE METER (BEAKER) 154 mg/dL 70-110 TESTED AT [address] (test akql=8022) [place] [address] POCT-GLUCOSE [id number] 17:37:00 Test Item Value Reference Range Comments POC-GLUCOSE METER (BEAKER) 176 mg/dL 70-110 TESTED AT [address] (test egfe=7353) [place] [address] POCT-GLUCOSE [id number] 13:59:00 Test Item Value Reference Range Comments POC-GLUCOSE METER (BEAKER) 126 mg/dL 70-110 TESTED AT [address] (test ckuj=2259) [place] [address] POCT-GLUCOSE [id number] 11:39:00 Test Item Value Reference Range Comments POC-GLUCOSE METER (BEAKER) 113 mg/dL 70-110 TESTED AT [address] (test aeuf=7342) [place] [id number] POCT-GLUCOSE [id number] 08:59:00 Test Item Value Reference Range Comments POC-GLUCOSE METER (BEAKER) 99 mg/dL 70-110 TESTED AT [address] (test sdbb=6587) [place] [place] [id number] BUN AND [id number] 06:11:00 Test Item Value Reference Range Comments BLOOD UREA NITROGEN 18 mg/dL 7-21 (BEAKER) (test pdhh=147) CREATININE (BEAKER) (test 0.65 mg/dL 0.57-1.25 nznr=869) EGFR (BEAKER) (test 136 mL/min/1.73 sq m ESTIMATED GFR IS NOT rvrf=1421) ACCURATE CREATININE CLEARANCE IN PREDICTING GLOMERULAR FILTRATION RATE. ESTIMATED GFR IS NOT APPLICABLE FOR DIALYSIS PATIENTS. POCT-GLUCOSE [id number] 21:43:00 Test Item Value Reference Range Comments POC-GLUCOSE METER (BEAKER) 110 mg/dL 70-110 TESTED AT [address] (test gfly=0385) [place] [id number] POCT-GLUCOSE [id number] 18:34:00 Test Item Value Reference Range Comments POC-GLUCOSE METER (BEAKER) 336 mg/dL 70-110 TESTED AT [address] (test ssqi=1846) [place] [address]6630 POCT-GLUCOSE [id number] 17:53:00 Test Item Value Reference Range Comments POC-GLUCOSE METER (BEAKER) 150 mg/dL 70-110 TESTED AT [address] (test msuh=5035) [place] [address]6630 POCT-GLUCOSE [id number] 12:04:00 Test Item Value Reference Range Comments POC-GLUCOSE METER (BEAKER) 295 mg/dL 70-110 TESTED AT [address] (test mqkm=7716) [place] [address]66[address] POCT-GLUCOSE [id number] 09:25:00 Test Item Value Reference Range Comments POC-GLUCOSE METER (BEAKER) 52 mg/dL 70-110 Notified JORDON STAPLETON/TESTED AT [facility] (test hync=9056) [address] [place] [address] BASIC METABOLIC [id number] 06:59:00 Test Item Value Reference Range Comments SODIUM (BEAKER) (test 138 meq/L 136-145 aiow=077) POTASSIUM (BEAKER) (test 3.6 meq/L 3.5-5.1 awjj=757) CHLORIDE (BEAKER) (test 103 meq/L 98-107 izxw=781) CO2 (BEAKER) (test 27 meq/L 22-29 twxt=084) BLOOD UREA NITROGEN 23 mg/dL 7-21 (BEAKER) (test rrco=161) CREATININE (BEAKER) (test 0.69 mg/dL 0.57-1.25 iuhu=797) GLUCOSE RANDOM (BEAKER) 59 mg/dL 70-105 (test pril=438) CALCIUM (BEAKER) (test 7.6 mg/dL 8.4-10.2 jlvz=159) EGFR (BEAKER) (test 127 mL/min/1.73 sq m ESTIMATED GFR IS NOT yndq=9121) ACCURATE CREATININE CLEARANCE IN PREDICTING GLOMERULAR FILTRATION RATE. ESTIMATED GFR IS NOT APPLICABLE FOR DIALYSIS PATIENTS. BLOOD [id number] 00:00:00 Test Item Value Reference Range Comments CULTURE (BEAKER) (test sshg=0741) No growth in 5 days BLOOD [id number] 00:00:00 Test Item Value Reference Range Comments CULTURE (BEAKER) (test lqro=7428) No growth in 5 days POCT-GLUCOSE [id number] 22:01:00 Test Item Value Reference Range Comments POC-GLUCOSE METER (BEAKER) 177 mg/dL 70-110 TESTED AT [address] (test ufpe=8701) [facility] [address] POCT-GLUCOSE [id number] 18:32:00 Test Item Value Reference Range Comments POC-GLUCOSE METER (BEAKER) 118 mg/dL 70-110 TESTED AT [address] (test rlsz=3964) [facility] [address] POCT-GLUCOSE [id number] 17:29:00 Test Item Value Reference Range Comments POC-GLUCOSE METER (BEAKER) 69 mg/dL 70-110 TESTED AT [address] (test sltx=7265) [facility] [address] POCT-GLUCOSE [id number] 14:12:00 Test Item Value Reference Range Comments POC-GLUCOSE METER (BEAKER) 141 mg/dL 70-110 TESTED AT [address] (test uqlj=9913) [place] [address] POCT-GLUCOSE [id number] 10:01:00 Test Item Value Reference Range Comments POC-GLUCOSE METER (BEAKER) 220 mg/dL 70-110 TESTED AT [address] (test jxyt=8771) [place] 2506630 POCT-GLUCOSE [id number] 08:51:00 Test Item Value Reference Range Comments POC-GLUCOSE METER (BEAKER) 220 mg/dL 70-110 TESTED AT [address] (test bbyc=4906) [place] [address] POCT-GLUCOSE [id number] 21:45:00 Test Item Value Reference Range Comments POC-GLUCOSE METER (BEAKER) 306 mg/dL 70-110 TESTED AT [address] (test qeiv=1683) [place] [address] POCT-GLUCOSE [id number] 20:06:00 Test Item Value Reference Range Comments POC-GLUCOSE METER (BEAKER) 392 mg/dL 70-110 TESTED AT [address] (test kshk=6319) [place] [address] POCT-GLUCOSE [id number] 15:28:00 Test Item Value Reference Range Comments POC-GLUCOSE METER (BEAKER) 403 mg/dL 70-110 Notified RN or MD Patient (test rqfj=9073) refused repeat test/TESTED AT [place] [address] [id number] 12:43:00 Test Item Value Reference Range Comments BLOOD UREA NITROGEN (BEAKER) (test umdz=003) 18 mg/dL 7-21 [id number] 12:43:00 Test Item Value Reference Range Comments CREATININE (BEAKER) (test 0.84 mg/dL 0.57-1.25 bsyk=716) EGFR (BEAKER) (test 101 mL/min/1.73 sq m ESTIMATED GFR IS NOT bepc=6118) ACCURATE CREATININE CLEARANCE IN PREDICTING GLOMERULAR FILTRATION RATE. ESTIMATED GFR IS NOT APPLICABLE FOR DIALYSIS PATIENTS. POCT-GLUCOSE [id number] 12:25:00 Test Item Value Reference Range Comments POC-GLUCOSE METER (BEAKER) 382 mg/dL 70-110 TESTED AT [address] (test gegh=8028) [place] [address] POCT-GLUCOSE [id number] 08:23:00 Test Item Value Reference Range Comments POC-GLUCOSE METER (BEAKER) 95 mg/dL 70-110 TESTED AT [address] (test lwkh=4152) [facility] [address] POCT-GLUCOSE [id number] 22:45:00 Test Item Value Reference Range Comments POC-GLUCOSE METER (BEAKER) 153 mg/dL 70-110 TESTED AT [address] (test rkke=7763) [place] [address] POCT-GLUCOSE [id number] 17:40:00 Test Item Value Reference Range Comments POC-GLUCOSE METER (BEAKER) 316 mg/dL 70-110 Notified RN or MD Patient (test xvgn=6124) refused repeat test/TESTED AT [place] [id number] POCT-GLUCOSE [id number] 12:12:00 Test Item Value Reference Range Comments POC-GLUCOSE METER (BEAKER) 279 mg/dL 70-110 TESTED AT [address] (test bpjs=5914) [place] [address]66[address] RESPIRATORY PANEL [id number] 11:36:00 Test Item Value Reference Range Comments HUMAN METAPNEUMOVIRUS (BEAKER) (test Not detected Not detected, Inconclusive ouye=8034) RHINOVIRUS (BEAKER) (test csqt=7612) Not detected Not detected, Inconclusive INFLUENZA A (BEAKER) (test Not detected Not detected, Inconclusive mvjg=3702) INFLUENZA A SUBTYPE H1 (BEAKER) Not detected Not detected, Inconclusive (test zzpx=5150) INFLUENZA A SUBTYPE H3 (BEAKER) Not detected Not detected, Inconclusive (test fmrs=6169) INFLUENZA A SUBTYPE H1-2009 (BEAKER) Not detected Not detected, Inconclusive (test bkee=4096) INFLUENZA B (BEAKER) (test Not detected Not detected, Inconclusive lefx=8470) RESPIRATORY SYNCYTIAL VIRUS (BEAKER) Not detected Not detected, Inconclusive (test ltac=5930) PARAINFLUENZA VIRUS 1 (BEAKER) (test Not detected Not detected, Inconclusive uznf=6449) PARAINFLUENZA VIRUS 2 (BEAKER) (test Not detected Not detected, Inconclusive ueam=7387) PARAINFLUENZA VIRUS 3 (BEAKER) (test Not detected Not detected, Inconclusive fxhp=4717) PARAINFLUENZA VIRUS 4 (BEAKER) (test Not detected Not detected, Inconclusive oxxo=4658) ADENOVIRUS (BEAKER) (test qnyz=6791) Not detected Not detected, Inconclusive CORONAVIRUS 229E (BEAKER) (test Not detected Not detected, Inconclusive revf=4105) CORONAVIRUS HKU1 (BEAKER) (test Not detected Not detected, Inconclusive wjda=4418) CORONAVIRUS NL63 (BEAKER) (test Not detected Not detected, Inconclusive jevh=7716) CORONAVIRUS OC43 (BEAKER) (test Not detected Not detected, Inconclusive gxpr=2062) BORDETELLA PERTUSSIS (BEAKER) (test Not detected Not detected, Inconclusive rgwf=2096) CHLAMYDOPHILA PNEUMONIAE (BEAKER) Not detected Not detected, Inconclusive (test lzyr=7549) MYCOPLASMA PNEUMONIAE (BEAKER) (test Not detected Not detected, Inconclusive pjjt=7621) POCT-GLUCOSE [id number] 08:37:00 Test Item Value Reference Range Comments POC-GLUCOSE METER (BEAKER) 302 mg/dL 70-110 Verify with Lab draw/TESTED AT (test jkpb=1726) [facility] [address] [place] [address] [id number] 07:38:00 Test Item Value Reference Range Comments BLOOD UREA NITROGEN (BEAKER) (test bkhp=054) 13 mg/dL 7-21 [id number] 07:38:00 Test Item Value Reference Range Comments CREATININE (BEAKER) (test 0.83 mg/dL 0.57-1.25 dlno=600) EGFR (BEAKER) (test 102 mL/min/1.73 sq m ESTIMATED GFR IS NOT weyx=6853) ACCURATE CREATININE CLEARANCE IN PREDICTING GLOMERULAR FILTRATION RATE. ESTIMATED GFR IS NOT APPLICABLE FOR DIALYSIS PATIENTS. POCT-GLUCOSE [id number] 23:25:00 Test Item Value Reference Range Comments POC-GLUCOSE METER (BEAKER) 376 mg/dL 70-110 TESTED AT [address] (test nieo=7090) [place] [address] POCT-GLUCOSE [id number] 21:02:00 Test Item Value Reference Range Comments POC-GLUCOSE METER (BEAKER) 339 mg/dL 70-110 Notified JORDON STAPLETON/TESTED AT [facility] (test bdwf=9922) [address] [place] [address] SPIN/CONCENTRATION [id number] 16:49:00 Test Item Value Reference Range Comments CONCENTRATION CHARGED (BEAKER) (test qpop=9027) Done URINE [id number] 14:16:00 Test Item Value Reference Range Comments CULTURE (BEAKER) (test eods=7815) See comment <10,000 col/mL YEAST>100,000 col/mL skin floraPOCT-GLUCOSE [id number] 12:23:00 Test Item Value Reference Range Comments POC-GLUCOSE METER (BEAKER) 259 mg/dL 70-110 TESTED AT [address] (test ings=6352) [place] [address] [id number] 10:26:00 Test Item Value Reference Range Comments CREATININE (BEAKER) (test 0.77 mg/dL 0.57-1.25 mfww=451) EGFR (BEAKER) (test 112 mL/min/1.73 sq m ESTIMATED GFR IS NOT smjl=3389) ACCURATE CREATININE CLEARANCE IN PREDICTING GLOMERULAR FILTRATION RATE. ESTIMATED GFR IS NOT APPLICABLE FOR DIALYSIS PATIENTS. [id number] 10:08:00 Test Item Value Reference Range Comments BLOOD UREA NITROGEN (BEAKER) (test hlkf=270) 17 mg/dL 7-21 POCT-GLUCOSE [id number] 09:04:00 Test Item Value Reference Range Comments POC-GLUCOSE METER (BEAKER) 173 mg/dL 70-110 TESTED AT [address] (test oivi=3699) [place] [address] POCT-GLUCOSE [id number] 21:10:00 Test Item Value Reference Range Comments POC-GLUCOSE METER (BEAKER) 151 mg/dL 70-110 TESTED AT [address] (test fizf=7025) [place] [address] SCREEN, [id number] 20:03:00 Test Item Value Reference Range Comments TEST URINE (BEAKER) (test fpfm=566) Negative POCT-GLUCOSE [id number] 17:01:00 Test Item Value Reference Range Comments POC-GLUCOSE METER (BEAKER) 252 mg/dL 70-110 TESTED AT [address] (test mtqr=5502) [place] [address] BASIC METABOLIC [id number] 16:19:00 Test Item Value Reference Range Comments SODIUM (BEAKER) (test 138 meq/L 136-145 zjua=881) POTASSIUM (BEAKER) (test 3.8 meq/L 3.5-5.1 gkvm=808) CHLORIDE (BEAKER) (test 105 meq/L 98-107 fxik=732) CO2 (BEAKER) (test 21 meq/L 22-29 duzr=259) BLOOD UREA NITROGEN 9 mg/dL 7-21 (BEAKER) (test ytwj=887) CREATININE (BEAKER) (test 0.94 mg/dL 0.57-1.25 bpno=637) GLUCOSE RANDOM (BEAKER) 421 mg/dL 70-105 (test fzok=788) CALCIUM (BEAKER) (test 8.5 mg/dL 8.4-10.2 grwo=220) EGFR (BEAKER) (test 89 mL/min/1.73 sq m ESTIMATED GFR IS NOT xhlm=3023) ACCURATE CREATININE CLEARANCE IN PREDICTING GLOMERULAR FILTRATION RATE. ESTIMATED GFR IS NOT APPLICABLE FOR DIALYSIS PATIENTS. [id number] 16:15:00 Test Item Value Reference Range Comments MAGNESIUM (BEAKER) (test bbjp=252) 1.4 mg/dL 1.6-2.6 POCT-GLUCOSE [id number] 11:37:00 Test Item Value Reference Range Comments POC-GLUCOSE METER (BEAKER) > mg/dL 70-110 OUTSIDE MEASURING RANGENotified RN (test xxxl=7950) MD/TESTED AT [address] [address] HEMOGLOBIN [id number] 11:03:00 Test Item Value Reference Range Comments HEMOGLOBIN A1C (BEAKER) (test xyxc=105) 12.5 % 4.3-6.1 POCT-GLUCOSE [id number] 08:22:00 Test Item Value Reference Range Comments POC-GLUCOSE METER (BEAKER) 434 mg/dL 70-110 Notified JORDON STAPLETON/TESTED AT [facility] (test kezl=0250) [address] [place] [address] COMPREHENSIVE METABOLIC [id number] 06:58:00 Test Item Value Reference Range Comments TOTAL PROTEIN (BEAKER) 7.7 gm/dL 6.0-8.3 (test yeva=430) ALBUMIN (BEAKER) (test 3.1 g/dL 3.5-5.0 chxg=7201) ALKALINE PHOSPHATASE 135 U/L 40-150 (BEAKER) (test lpqt=329) BILIRUBIN TOTAL (BEAKER) 0.1 mg/dL 0.2-1.2 (test cgiy=019) SODIUM (BEAKER) (test 135 meq/L 136-145 sqsg=413) POTASSIUM (BEAKER) (test 4.6 meq/L 3.5-5.1 qoug=207) CHLORIDE (BEAKER) (test 100 meq/L 98-107 vcos=740) CO2 (BEAKER) (test 24 meq/L 22-29 hznx=238) BLOOD UREA NITROGEN 11 mg/dL 7-21 (BEAKER) (test tlkx=089) CREATININE (BEAKER) (test 0.94 mg/dL 0.57-1.25 bmxb=390) GLUCOSE RANDOM (BEAKER) 533 mg/dL 70-105 (test imwg=275) CALCIUM (BEAKER) (test 8.4 mg/dL 8.4-10.2 ixez=380) AST (SGOT) (BEAKER) (test 16 U/L 5-34 vyfg=141) ALT (SGPT) (BEAKER) (test 22 U/L 6-55 booi=197) EGFR (BEAKER) (test 89 mL/min/1.73 sq m ESTIMATED GFR IS NOT jjpa=4824) ACCURATE CREATININE CLEARANCE IN PREDICTING GLOMERULAR FILTRATION RATE. ESTIMATED GFR IS NOT APPLICABLE FOR DIALYSIS PATIENTS. [id number] 06:43:00 Test Item Value Reference Range Comments MAGNESIUM (BEAKER) (test aefs=927) 1.6 mg/dL 1.6-2.6 [id number] 06:30:00 Test Item Value Reference Range Comments PHOSPHORUS (BEAKER) (test fgal=147) 2.9 mg/dL 2.3-4.7 GAMMA GLUTAMYL TRANSFERASE (GGT)[id number] 06:29:00 Test Item Value Reference Range Comments GAMMA GLUTAMYL TRANSFERASE (BEAKER) (test eube=845) 28 U/L 9-64 CBC W/PLT COUNT & AUTO [id number] 06:11:00 Test Item Value Reference Range Comments WHITE BLOOD CELL COUNT (BEAKER) (test pkoo=023) 9.4 K/ L 4.0-10.0 RED BLOOD CELL COUNT (BEAKER) (test xhqr=660) 4.21 M/ L 4.00-5.00 HEMOGLOBIN (BEAKER) (test arsp=959) 11.3 GM/DL 12.0-15.0 HEMATOCRIT (BEAKER) (test ucej=259) 37.0 % 36.0-45.0 MEAN CORPUSCULAR VOLUME (BEAKER) (test uvhb=553) 87.8 fL 82.0-99.0 MEAN CORPUSCULAR HEMOGLOBIN (BEAKER) (test 26.8 pg 27.0-33.0 rzjv=728) MEAN CORPUSCULAR HEMOGLOBIN CONC (BEAKER) (test 30.5 GM/DL 32.0-36.0 dvjs=009) RED CELL DISTRIBUTION WIDTH (BEAKER) (test 14.1 % 10.3-14.2 qnrg=607) PLATELET COUNT (BEAKER) (test yvkk=895) 321 K/CU MM 150-430 MEAN PLATELET VOLUME (BEAKER) (test nqpz=679) 9.0 fL 6.5-10.5 NUCLEATED RED BLOOD CELLS (BEAKER) (test 0 /100 WBC 0-0 gxfg=062) NEUTROPHILS RELATIVE PERCENT (BEAKER) (test 93 % zqfu=297) LYMPHOCYTES RELATIVE PERCENT (BEAKER) (test 6 % axyf=619) MONOCYTES RELATIVE PERCENT (BEAKER) (test 1 % xcsy=777) EOSINOPHILS RELATIVE PERCENT (BEAKER) (test 0 % wyls=970) BASOPHILS RELATIVE PERCENT (BEAKER) (test 0 % psss=730) NEUTROPHILS ABSOLUTE COUNT (BEAKER) (test 8.70 K/ L 1.80-8.00 ltyg=771) LYMPHOCYTES ABSOLUTE COUNT (BEAKER) (test 0.60 K/ L 1.48-4.50 fkra=994) MONOCYTES ABSOLUTE COUNT (BEAKER) (test 0.07 K/ L 0.00-1.30 xjbq=040) EOSINOPHILS ABSOLUTE COUNT (BEAKER) (test 0.01 K/ L 0.00-0.50 qegi=510) BASOPHILS ABSOLUTE COUNT (BEAKER) (test 0.00 K/ L 0.00-0.20 khbm=680) 0.00POCT-GLUCOSE [id number] 00:12:00 Test Item Value Reference Range Comments POC-GLUCOSE METER (BEAKER) 403 mg/dL 70-110 Notified JORDON STAPLETON/TESTED AT [facility] (test joyb=0017) [address] [place] [address] URINALYSIS W/ [id number] 21:19:00 Test Item Value Reference Range Comments COLOR (BEAKER) (test jqeb=365) Light Yellow CLARITY (BEAKER) (test iqln=650) Clear SPECIFIC GRAVITY UA (BEAKER) (test 1.013 1.001-1.035 zpwm=209) PH UA (BEAKER) (test dzcm=100) 6.5 5.0-8.0 PROTEIN UA (BEAKER) (test mjny=649) 20 mg/dL Negative GLUCOSE UA (BEAKER) (test eggo=553) >1000 mg/dL Negative KETONES UA (BEAKER) (test asbs=451) Negative Negative BILIRUBIN UA (BEAKER) (test opmo=079) Negative Negative BLOOD UA (BEAKER) (test hzmt=253) Negative Negative NITRITE UA (BEAKER) (test tvkc=488) Negative Negative LEUKOCYTE ESTERASE UA (BEAKER) (test Negative Negative zkmy=909) UROBILINOGEN UA (BEAKER) (test jdpw=220) 0.2 mg/dL 0.2-1.0 RBC UA (BEAKER) (test sktn=420) 1 /HPF WBC UA (BEAKER) (test nypo=538) < /HPF SQUAMOUS EPITHELIAL (BEAKER) (test < /HPF lgkn=224) SOURCE(BEAKER) (test ulir=2162) Urine, Clean Catch POCT-GLUCOSE [id number] 19:36:00 Test Item Value Reference Range Comments POC-GLUCOSE METER (BEAKER) 405 mg/dL 70-110 Notified JORDON STAPLETON/TESTED AT [facility] (test cizo=3164) [address] [facility] [address] POCT-LACTIC ACID, [id number] 18:38:00 Test Item Value Reference Range Comments POC-LACTIC ACID, VENOUS 1.9 mmol/L 0.9-1.7 TESTED AT [place] [address] [place] (BEAKER) (test jxwn=4612) [facility] [address] CREATINE KINASE (CK), TOTAL AND [id number] 18:36:00 Test Item Value Reference Range Comments CREATINE KINASE TOTAL (BEAKER) (test qkcx=686) 39 U/L 29-200 CREATINE KINASE-MB (BEAKER) (test akbs=690) 0.5 ng/mL 0.0-6.6 CREATINE KINASE-MB INDEX (BEAKER) (test tkca=217) 1.3 % Effective 09/11/2014: CK-MB Reference Range ChangeNew: 0.0-6.6 Previous: 0.0- 4.9CK-MB Reference Range:<6.7 Normal6.7-10.0 Borderline>10.0 AbnormalTROPONIN [id number] 18:36:00 Test Item Value Reference Range Comments TROPONIN I (BEAKER) (test zomk=985) < ng/mL 0.00-0.03 Effective 09/11/2014: Reference Range [...] Range Comments B-TYPE NATRIURETIC PEPTIDE (BEAKER) (test codq=467) 43 pg/mL 0-100 [id number] 18:28:00 Test Item Value Reference Range Comments MAGNESIUM (BEAKER) (test cjiw=883) 1.7 mg/dL 1.6-2.6 BASIC METABOLIC [id number] 18:28:00 Test Item Value Reference Range Comments SODIUM (BEAKER) (test 139 meq/L 136-145 zdkw=574) POTASSIUM (BEAKER) (test 3.9 meq/L 3.5-5.1 uvin=882) CHLORIDE (BEAKER) (test 105 meq/L 98-107 yajk=158) CO2 (BEAKER) (test 25 meq/L 22-29 wxkk=330) BLOOD UREA NITROGEN 10 mg/dL 7-21 (BEAKER) (test ejek=483) CREATININE (BEAKER) (test 0.68 mg/dL 0.57-1.25 wfve=050) GLUCOSE RANDOM (BEAKER) 163 mg/dL 70-105 (test iynm=804) CALCIUM (BEAKER) (test 9.2 mg/dL 8.4-10.2 jlco=944) EGFR (BEAKER) (test 129 mL/min/1.73 sq m ESTIMATED GFR IS NOT eili=8226) ACCURATE CREATININE CLEARANCE IN PREDICTING GLOMERULAR FILTRATION RATE. ESTIMATED GFR IS NOT APPLICABLE FOR DIALYSIS PATIENTS. [id number] 18:24:00 Test Item Value Reference Range Comments PROTIME (BEAKER) (test kzyu=991) 13.1 seconds 11.7-14.7 INR (BEAKER) (test ohpo=702) 1.0 <=5.9 PARTIAL THROMBOPLASTIN TIME (BEAKER) (test 32.9 seconds 22.5-36.0 jqlq=248) RECOMMENDED COUMADIN/WARFARIN INR THERAPY RANGESSTANDARD DOSE: 2.0 - 3.0 Includes: PROPHYLAXIS forvenous thrombosis, systemic embolization; TREATMENT for venous thrombosis and/or pulmonary embolus.HIGH RISK: Target INR is 2.5-3.5 for patients with mechanical heart valves.CBC W/PLT COUNT & AUTO [id number] 18:16:00 Test Item Value Reference Range Comments WHITE BLOOD CELL COUNT (BEAKER) (test smvl=691) 11.5 K/ L 4.0-10.0 RED BLOOD CELL COUNT (BEAKER) (test tvmr=955) 4.29 M/ L 4.00-5.00 HEMOGLOBIN (BEAKER) (test rrrb=029) 11.3 GM/DL 12.0-15.0 HEMATOCRIT (BEAKER) (test lewu=396) 37.0 % 36.0-45.0 MEAN CORPUSCULAR VOLUME (BEAKER) (test gfdy=327) 86.1 fL 82.0-99.0 MEAN CORPUSCULAR HEMOGLOBIN (BEAKER) (test 26.4 pg 27.0-33.0 ivyi=831) MEAN CORPUSCULAR HEMOGLOBIN CONC (BEAKER) (test 30.7 GM/DL 32.0-36.0 llfa=168) RED CELL DISTRIBUTION WIDTH (BEAKER) (test 15.7 % 10.3-14.2 ampu=923) PLATELET COUNT (BEAKER) (test qicx=670) 364 K/CU MM 150-430 MEAN PLATELET VOLUME (BEAKER) (test vxqf=486) 8.6 fL 6.5-10.5 NUCLEATED RED BLOOD CELLS (BEAKER) (test 0 /100 WBC 0-0 exrj=585) NEUTROPHILS RELATIVE PERCENT (BEAKER) (test 65 % ppay=207) LYMPHOCYTES RELATIVE PERCENT (BEAKER) (test 23 % oeco=198) MONOCYTES RELATIVE PERCENT (BEAKER) (test 8 % utjr=886) EOSINOPHILS RELATIVE PERCENT (BEAKER) (test 4 % slvb=091) BASOPHILS RELATIVE PERCENT (BEAKER) (test 1 % egng=647) NEUTROPHILS ABSOLUTE COUNT (BEAKER) (test 7.52 K/ L 1.80-8.00 ftne=925) LYMPHOCYTES ABSOLUTE COUNT (BEAKER) (test 2.63 K/ L 1.48-4.50 moyb=500) MONOCYTES ABSOLUTE COUNT (BEAKER) (test 0.88 K/ L 0.00-1.30 hhub=315) EOSINOPHILS ABSOLUTE COUNT (BEAKER) (test 0.44 K/ L 0.00-0.50 ywxa=160) BASOPHILS ABSOLUTE COUNT (BEAKER) (test 0.07 K/ L 0.00-0.20 dprl=431) 0.00AFB CULTURE + [id number] 18:28:00 Test Item Value Reference Range Comments CULTURE (BEAKER) (test No acid-fast bacilli isolated isba=9907) in 42 days AFB SMEAR (BEAKER) (test No acid fast bacilli seen zipm=151) AFB CULTURE + [id number] 12:13:00 Test Item Value Reference Range Comments CULTURE (BEAKER) (test No acid-fast bacilli isolated lbbq=5277) in 42 days AFB SMEAR (BEAKER) (test No acid fast bacilli seen sdje=413) FUNGUS CULTURE + [id number] 18:28:00 Test Item Value Reference Range Comments CULTURE (BEAKER) (test qxau=3715) 2+ Clau albicans FUNGUS SMEAR (BEAKER) (test No fungi seen avum=5238) CF RESPIRATORY [id number] 04:50:00 Test Item Value Reference Range Comments CULTURE (BEAKER) (test PSEUDOMONAS 2+ Pseudomonas eech=7021) AERUGINOSA aeruginosa Amikacin (test code=1) Susceptible 0-16 , Resistant <0 or >16 Aztreonam (test Susceptible 0-8 , code=32) Resistant <0 or >8 Cefepime (test code=51) Susceptible 0-8 , Resistant <0 or >8 Ceftazidime (test Susceptible 0-8 , code=27) Resistant <0 or >8 Ciprofloxacin (test Susceptible 0-1 , code=7) Resistant <0 or >1 Doripenem (test Susceptible 0-2 , vnof=415) Resistant <0 or >2 Gentamicin (test Susceptible [...] , code=25) Resistant <0 or >4 CULTURE (Alaris RoyaltyAKER) (test PSEUDOMONAS 2+ Pseudomonas xnip=35244) AERUGINOSA aeruginosaof a second type Amikacin (test code=1) Susceptible 0-16 , Resistant <0 or >16 Aztreonam (test Susceptible 0-8 , code=32) Resistant <0 or >8 Cefepime (test code=51) Susceptible 0-8 , Resistant <0 or >8 Ceftazidime (test Susceptible 0-8 , code=27) Resistant <0 or >8 Ciprofloxacin (test Susceptible 0-1 , code=7) Resistant <0 or >1 Doripenem (test Susceptible 0-2 , bopl=613) Resistant <0 or >2 Gentamicin (test Susceptible [...] or >4 2+ Normal respiratory derick presentBLOOD [id number] 18:00:00 Test Item Value Reference Range Comments CULTURE (BEAKER) (test xyhs=5610) No growth in 5 days BLOOD [id number] 18:00:00 Test Item Value Reference Range Comments CULTURE (BEAKER) (test vxps=8316) No growth in 5 days POCT-GLUCOSE [id number] 12:39:00 Test Item Value Reference Range Comments POC-GLUCOSE METER (BEAKER) 352 mg/dL 70-110 TESTED AT [facility] [address] [facility] (test aizn=4904) [facility] [address] BASIC METABOLIC [id number] 10:03:00 Test Item Value Reference Range Comments SODIUM (BEAKER) (test 141 meq/L 136-145 fysb=432) POTASSIUM (BEAKER) (test 3.7 meq/L 3.5-5.1 ximi=098) CHLORIDE (BEAKER) (test 101 meq/L 98-107 dhum=384) CO2 (BEAKER) (test 31 meq/L 22-29 pawm=195) BLOOD UREA NITROGEN 7 mg/dL 7-21 (BEAKER) (test asnf=083) CREATININE (BEAKER) (test 0.57 mg/dL 0.57-1.25 xbne=935) GLUCOSE RANDOM (BEAKER) 87 mg/dL 70-105 (test nleo=534) CALCIUM (BEAKER) (test 8.4 mg/dL 8.4-10.2 vrwr=863) EGFR (BEAKER) (test 158 mL/min/1.73 sq m ESTIMATED GFR IS NOT iwbf=9761) ACCURATE CREATININE CLEARANCE IN PREDICTING GLOMERULAR FILTRATION RATE. ESTIMATED GFR IS NOT APPLICABLE FOR DIALYSIS PATIENTS. CBC W/PLT COUNT & AUTO [id number] 09:23:00 Test Item Value Reference Range Comments WHITE BLOOD CELL COUNT (BEAKER) (test eyza=511) 13.8 K/ L 4.0-10.0 RED BLOOD CELL COUNT (BEAKER) (test itxq=432) 3.83 M/ L 4.00-5.00 HEMOGLOBIN (BEAKER) (test jrkh=942) 10.5 GM/DL 12.0-15.0 HEMATOCRIT (BEAKER) (test qjkz=392) 34.5 % 36.0-45.0 MEAN CORPUSCULAR VOLUME (BEAKER) (test lsxd=844) 90.1 fL 82.0-99.0 MEAN CORPUSCULAR HEMOGLOBIN (BEAKER) (test 27.5 pg 27.0-33.0 rxvp=192) MEAN CORPUSCULAR HEMOGLOBIN CONC (BEAKER) (test 30.6 GM/DL 32.0-36.0 uypx=768) RED CELL DISTRIBUTION WIDTH (BEAKER) (test 14.1 % 10.3-14.2 kqvf=431) PLATELET COUNT (BEAKER) (test pjnr=842) 354 K/CU MM 150-430 MEAN PLATELET VOLUME (BEAKER) (test mchv=490) 8.4 fL 6.5-10.5 NUCLEATED RED BLOOD CELLS (BEAKER) (test 0 /100 WBC 0-0 twzk=804) NEUTROPHILS RELATIVE PERCENT (BEAKER) (test 68 % werg=748) LYMPHOCYTES RELATIVE PERCENT (BEAKER) (test 19 % fbre=881) MONOCYTES RELATIVE PERCENT (BEAKER) (test 10 % rwoy=100) EOSINOPHILS RELATIVE PERCENT (BEAKER) (test 3 % eyyu=350) BASOPHILS RELATIVE PERCENT (BEAKER) (test 0 % kyhm=309) NEUTROPHILS ABSOLUTE COUNT (BEAKER) (test 9.41 K/ L 1.80-8.00 kmqo=249) LYMPHOCYTES ABSOLUTE COUNT (BEAKER) (test 2.64 K/ L 1.48-4.50 dknf=019) MONOCYTES ABSOLUTE COUNT (BEAKER) (test 1.35 K/ L 0.00-1.30 hsxq=575) EOSINOPHILS ABSOLUTE COUNT (BEAKER) (test 0.37 K/ L 0.00-0.50 xslv=254) BASOPHILS ABSOLUTE COUNT (BEAKER) (test 0.03 K/ L 0.00-0.20 jcal=394) 0.00POCT-GLUCOSE [id number] 08:55:00 Test Item Value Reference Range Comments POC-GLUCOSE METER (BEAKER) 82 mg/dL 70-110 TESTED AT [address] (test mvng=4949) [facility] [facility] [address] POCT-GLUCOSE [id number] 21:23:00 Test Item Value Reference Range Comments POC-GLUCOSE METER (BEAKER) 264 mg/dL 70-110 TESTED AT [address] (test ixel=1383) [facility] [address] POCT-GLUCOSE [id number] 17:56:00 Test Item Value Reference Range Comments POC-GLUCOSE METER (BEAKER) 340 mg/dL 70-110 TESTED AT [address] (test jomk=9029) [place] [address] POCT-GLUCOSE [id number] 12:16:00 Test Item Value Reference Range Comments POC-GLUCOSE METER (BEAKER) 386 mg/dL 70-110 TESTED AT [address] (test aisn=0609) [place] [address] POCT-GLUCOSE [id number] 08:24:00 Test Item Value Reference Range Comments POC-GLUCOSE METER (BEAKER) 105 mg/dL 70-110 TESTED AT [address] (test ixgb=5687) [place] [address] BUN AND [id number] 06:44:00 Test Item Value Reference Range Comments BLOOD UREA NITROGEN 5 mg/dL 7-21 (BEAKER) (test mmog=296) CREATININE (BEAKER) (test 0.56 mg/dL 0.57-1.25 yzoi=034) EGFR (BEAKER) (test 161 mL/min/1.73 sq m ESTIMATED GFR IS NOT epjy=3628) ACCURATE CREATININE CLEARANCE IN PREDICTING GLOMERULAR FILTRATION RATE. ESTIMATED GFR IS NOT APPLICABLE FOR DIALYSIS PATIENTS. POCT-GLUCOSE [id number] 23:49:00 Test Item Value Reference Range Comments POC-GLUCOSE METER (BEAKER) 211 mg/dL 70-110 TESTED AT [address] (test xvmm=6432) [place] [address] POCT-GLUCOSE [id number] 19:36:00 Test Item Value Reference Range Comments POC-GLUCOSE METER (BEAKER) 288 mg/dL 70-110 TESTED AT [address] (test xkfa=5344) [place] [address] BUN AND [id number] 18:20:00 Test Item Value Reference Range Comments BLOOD UREA NITROGEN 8 mg/dL 7-21 (BEAKER) (test nqty=594) CREATININE (BEAKER) (test 0.77 mg/dL 0.57-1.25 juan=136) EGFR (BEAKER) (test 112 mL/min/1.73 sq m ESTIMATED GFR IS NOT huwu=7992) ACCURATE CREATININE CLEARANCE IN PREDICTING GLOMERULAR FILTRATION RATE. ESTIMATED GFR IS NOT APPLICABLE FOR DIALYSIS PATIENTS. POCT-GLUCOSE [id number] 17:09:00 Test Item Value Reference Range Comments POC-GLUCOSE METER (BEAKER) 388 mg/dL 70-110 TESTED AT [address] (test nmrh=5560) [facility] [address] POCT-GLUCOSE [id number] 13:54:00 Test Item Value Reference Range Comments POC-GLUCOSE METER (BEAKER) 445 mg/dL 70-110 TESTED AT [address] (test wkhg=0301) [facility] [address] POCT-GLUCOSE [id number] 11:39:00 Test Item Value Reference Range Comments POC-GLUCOSE METER (BEAKER) 349 mg/dL 70-110 TESTED AT [address] (test hosi=7007) [facility] [address] POCT-GLUCOSE [id number] 09:08:00 Test Item Value Reference Range Comments POC-GLUCOSE METER (BEAKER) 52 mg/dL 70-110 TESTED AT [address] (test xqed=7834) [facility] [address] POCT-GLUCOSE [id number] 22:14:00 Test Item Value Reference Range Comments POC-GLUCOSE METER (BEAKER) 99 mg/dL 70-110 TESTED AT [address] (test uwnl=8432) [facility] [address] POCT-GLUCOSE [id number] 18:07:00 Test Item Value Reference Range Comments POC-GLUCOSE METER (BEAKER) 209 mg/dL 70-110 TESTED AT [address] (test qmyj=3038) [facility] [address] POCT-GLUCOSE [id number] 12:13:00 Test Item Value Reference Range Comments POC-GLUCOSE METER (BEAKER) 101 mg/dL 70-110 TESTED AT [address] (test eiaw=5321) [facility] [address] POCT-GLUCOSE [id number] 08:28:00 Test Item Value Reference Range Comments POC-GLUCOSE METER (BEAKER) 311 mg/dL 70-110 TESTED AT [address] (test nowe=1330) [facility] [address] BASIC METABOLIC [id number] 04:01:00 Test Item Value Reference Range Comments SODIUM (BEAKER) (test 135 meq/L 136-145 wmod=291) POTASSIUM (BEAKER) (test 4.2 meq/L 3.5-5.1 mfpc=067) CHLORIDE (BEAKER) (test 99 meq/L 98-107 vhsq=245) CO2 (BEAKER) (test 29 meq/L 22-29 bgpu=953) BLOOD UREA NITROGEN 17 mg/dL 7-21 (BEAKER) (test kyqd=968) CREATININE (BEAKER) (test 0.79 mg/dL 0.57-1.25 tzrg=002) GLUCOSE RANDOM (BEAKER) 402 mg/dL 70-105 (test mxlz=895) CALCIUM (BEAKER) (test 7.9 mg/dL 8.4-10.2 zrim=855) EGFR (BEAKER) (test 108 mL/min/1.73 sq m ESTIMATED GFR IS NOT aiou=4425) ACCURATE CREATININE CLEARANCE IN PREDICTING GLOMERULAR FILTRATION RATE. ESTIMATED GFR IS NOT APPLICABLE FOR DIALYSIS PATIENTS. CBC W/PLT COUNT & AUTO [id number] 03:36:00 Test Item Value Reference Range Comments WHITE BLOOD CELL COUNT (BEAKER) (test zohd=373) 12.5 K/ L 4.0-10.0 RED BLOOD CELL COUNT (BEAKER) (test hdub=165) 3.97 M/ L 4.00-5.00 HEMOGLOBIN (BEAKER) (test odhq=116) 11.3 GM/DL 12.0-15.0 HEMATOCRIT (BEAKER) (test zybc=817) 36.2 % 36.0-45.0 MEAN CORPUSCULAR VOLUME (BEAKER) (test dxty=662) 91.2 fL 82.0-99.0 MEAN CORPUSCULAR HEMOGLOBIN (BEAKER) (test 28.4 pg 27.0-33.0 osyz=513) MEAN CORPUSCULAR HEMOGLOBIN CONC (BEAKER) (test 31.1 GM/DL 32.0-36.0 loaa=503) RED CELL DISTRIBUTION WIDTH (BEAKER) (test 13.9 % 10.3-14.2 gyag=709) PLATELET COUNT (BEAKER) (test owpy=100) 358 K/CU MM 150-430 MEAN PLATELET VOLUME (BEAKER) (test ratm=225) 8.8 fL 6.5-10.5 NUCLEATED RED BLOOD CELLS (BEAKER) (test 0 /100 WBC 0-0 vkyz=245) NEUTROPHILS RELATIVE PERCENT (BEAKER) (test 73 % xxxj=243) LYMPHOCYTES RELATIVE PERCENT (BEAKER) (test 19 % fdpr=860) MONOCYTES RELATIVE PERCENT (BEAKER) (test 6 % xgiz=348) EOSINOPHILS RELATIVE PERCENT (BEAKER) (test 2 % daay=354) BASOPHILS RELATIVE PERCENT (BEAKER) (test 0 % jiaq=489) NEUTROPHILS ABSOLUTE COUNT (BEAKER) (test 9.15 K/ L 1.80-8.00 pfdm=132) LYMPHOCYTES ABSOLUTE COUNT (BEAKER) (test 2.35 K/ L 1.48-4.50 rcnm=391) MONOCYTES ABSOLUTE COUNT (BEAKER) (test 0.74 K/ L 0.00-1.30 jiga=416) EOSINOPHILS ABSOLUTE COUNT (BEAKER) (test 0.25 K/ L 0.00-0.50 ffmw=341) BASOPHILS ABSOLUTE COUNT (BEAKER) (test 0.04 K/ L 0.00-0.20 dmgi=513) 0.00POCT-GLUCOSE [id number] 22:02:00 Test Item Value Reference Range Comments POC-GLUCOSE METER (BEAKER) 129 mg/dL 70-110 TESTED AT [address] (test yfza=2646) [place] [address] POCT-GLUCOSE [id number] 17:43:00 Test Item Value Reference Range Comments POC-GLUCOSE METER (BEAKER) 399 mg/dL 70-110 TESTED AT [address] (test zfmx=3482) [place] [address] SPIN/CONCENTRATION [id number] 13:27:00 Test Item Value Reference Range Comments CONCENTRATION CHARGED (BEAKER) (test sbhn=0247) Done POCT-GLUCOSE [id number] 12:38:00 Test Item Value Reference Range Comments POC-GLUCOSE METER (BEAKER) 312 mg/dL 70-110 TESTED AT [address] (test knzx=6615) [place] [address] CBC W/PLT COUNT & AUTO [id number] 09:37:00 Test Item Value Reference Range Comments WHITE BLOOD CELL COUNT (BEAKER) (test adko=848) 14.2 K/ L 4.0-10.0 RED BLOOD CELL COUNT (BEAKER) (test ohfb=227) 4.26 M/ L 4.00-5.00 HEMOGLOBIN (BEAKER) (test ppbn=844) 11.9 GM/DL 12.0-15.0 HEMATOCRIT (BEAKER) (test tnkl=059) 38.2 % 36.0-45.0 MEAN CORPUSCULAR VOLUME (BEAKER) (test ooar=763) 89.9 fL 82.0-99.0 MEAN CORPUSCULAR HEMOGLOBIN (BEAKER) (test 27.9 pg 27.0-33.0 ogcc=895) MEAN CORPUSCULAR HEMOGLOBIN CONC (BEAKER) (test 31.1 GM/DL 32.0-36.0 eaxk=927) RED CELL DISTRIBUTION WIDTH (BEAKER) (test 14.0 % 10.3-14.2 pzss=336) PLATELET COUNT (BEAKER) (test qrdo=266) 359 K/CU MM 150-430 MEAN PLATELET VOLUME (BEAKER) (test tqby=514) 8.9 fL 6.5-10.5 NUCLEATED RED BLOOD CELLS (BEAKER) (test 0 /100 WBC 0-0 qpha=605) NEUTROPHILS RELATIVE PERCENT (BEAKER) (test 76 % hcko=311) LYMPHOCYTES RELATIVE PERCENT (BEAKER) (test 18 % xovq=530) MONOCYTES RELATIVE PERCENT (BEAKER) (test 5 % vnhc=458) EOSINOPHILS RELATIVE PERCENT (BEAKER) (test 1 % foau=368) BASOPHILS RELATIVE PERCENT (BEAKER) (test 0 % xqmy=788) NEUTROPHILS ABSOLUTE COUNT (BEAKER) (test 10.80 K/ L 1.80-8.00 nirm=803) LYMPHOCYTES ABSOLUTE COUNT (BEAKER) (test 2.52 K/ L 1.48-4.50 ubtn=588) MONOCYTES ABSOLUTE COUNT (BEAKER) (test 0.65 K/ L 0.00-1.30 rnzh=055) EOSINOPHILS ABSOLUTE COUNT (BEAKER) (test 0.21 K/ L 0.00-0.50 xoko=236) BASOPHILS ABSOLUTE COUNT (BEAKER) (test 0.03 K/ L 0.00-0.20 ujsu=488) 0.00HCG, QUANTITATIVE, [id number] 09:10:00 Test Item Value Reference Range Comments GONADOTROPIN, CHORIONIC (HCG) QUANT (BEAKER) (test < mIU/mL 0-10 jtlw=636) Non- Females: <10 mIU/mL Females: Gestation Age Reference Range(mIU/mL) 0.2-1 Week 5-50 1-2 Weeks 50-500 2-3 Weeks 100-5,000 3-4Weeks 500-10,000 4 -5 Weeks 1,000-50,000 5-6 Weeks 10,000-100,000 6-8 Weeks 15,000-200,000 2-3 Months 10,000-100,000PREGNANCY SCREEN, [id number] 09:05:00 Test Item Value Reference Range Comments TEST URINE (BEAKER) (test aiuk=212) Negative GAMMA GLUTAMYL TRANSFERASE (GGT)2017-01-01 09:02:00 Test Item Value Reference Range Comments GAMMA GLUTAMYL TRANSFERASE (BEAKER) (test scoi=472) 22 U/L 9-64 COMPREHENSIVE METABOLIC [id number] 09:02:00 Test Item Value Reference Range Comments TOTAL PROTEIN (BEAKER) 6.6 gm/dL 6.0-8.3 (test mniq=156) ALBUMIN (BEAKER) (test 2.6 g/dL 3.5-5.0 hips=8443) ALKALINE PHOSPHATASE 136 U/L 40-150 (BEAKER) (test whmx=627) BILIRUBIN TOTAL (BEAKER) 0.1 mg/dL 0.2-1.2 (test sbgt=313) SODIUM (BEAKER) (test 135 meq/L 136-145 ljcy=771) POTASSIUM (BEAKER) (test 4.4 meq/L 3.5-5.1 bjvm=889) CHLORIDE (BEAKER) (test 100 meq/L 98-107 eqxf=705) CO2 (BEAKER) (test 25 meq/L 22-29 ctfz=017) BLOOD UREA NITROGEN 7 mg/dL 7-21 (BEAKER) (test ahev=846) CREATININE (BEAKER) (test 0.81 mg/dL 0.57-1.25 xfji=156) GLUCOSE RANDOM (BEAKER) 378 mg/dL 70-105 (test yksp=813) CALCIUM (BEAKER) (test 8.0 mg/dL 8.4-10.2 qegb=024) AST (SGOT) (BEAKER) (test 7 U/L 5-34 lhol=470) ALT (SGPT) (BEAKER) (test 8 U/L 6-55 yxyg=378) EGFR (BEAKER) (test 105 mL/min/1.73 sq ESTIMATED GFR IS NOT afun=3395) m ACCURATE CREATININE CLEARANCE IN PREDICTING GLOMERULAR FILTRATION RATE. ESTIMATED GFR IS NOT APPLICABLE FOR DIALYSIS PATIENTS. POCT-GLUCOSE [id number] 07:27:00 Test Item Value Reference Range Comments POC-GLUCOSE METER (BEAKER) 327 mg/dL 70-110 TESTED AT [address] (test pcap=0870) [place] [id number] POCT-GLUCOSE [id number] 21:00:00 Test Item Value Reference Range Comments POC-GLUCOSE METER (BEAKER) 218 mg/dL 70-110 TESTED AT [address] (test oteu=1629) [place] [id number] LACTIC ACID, VENOUS, WHOLE [id number] 17:38:00 Test Item Value Reference Range Comments LACTATE BLOOD VENOUS (2) (BEAKER) (test 2.3 mmol/L 0.5-2.2 stpl=7211) Effective 02/26/2016: Units/Reference Range ChangeNew: 0.5-2.2 mmol/L Previous: 5 -20 mg/dLPOCT-GLUCOSE [id number] 17:13:00 Test Item Value Reference Range Comments POC-GLUCOSE METER (BEAKER) 97 mg/dL 70-110 TESTED AT [address] (test kluo=7708) [place] [address] KETONE, [id number] 15:38:00 Test Item Value Reference Range Comments KETONES, BLOOD (BEAKER) (test gtrh=3290) 0.1 mmol/L <0.4 CBC W/PLT COUNT & AUTO [id number] 15:28:00 Test Item Value Reference Range Comments WHITE BLOOD CELL COUNT (BEAKER) (test ziyp=585) 16.4 K/ L 4.0-10.0 RED BLOOD CELL COUNT (BEAKER) (test gydu=566) 4.60 M/ L 4.00-5.00 HEMOGLOBIN (BEAKER) (test gjga=679) 13.1 GM/DL 12.0-15.0 HEMATOCRIT (BEAKER) (test sixu=433) 41.3 % 36.0-45.0 MEAN CORPUSCULAR VOLUME (BEAKER) (test xeft=873) 89.6 fL 82.0-99.0 MEAN CORPUSCULAR HEMOGLOBIN (BEAKER) (test 28.4 pg 27.0-33.0 lczt=375) MEAN CORPUSCULAR HEMOGLOBIN CONC (BEAKER) (test 31.7 GM/DL 32.0-36.0 ugig=035) RED CELL DISTRIBUTION WIDTH (BEAKER) (test 14.1 % 10.3-14.2 lwwv=639) PLATELET COUNT (BEAKER) (test aaab=580) 358 K/CU MM 150-430 MEAN PLATELET VOLUME (BEAKER) (test ksqs=973) 9.5 fL 6.5-10.5 NUCLEATED RED BLOOD CELLS (BEAKER) (test 0 /100 WBC 0-0 hmlw=297) NEUTROPHILS RELATIVE PERCENT (BEAKER) (test 82 % emyy=847) LYMPHOCYTES RELATIVE PERCENT (BEAKER) (test 9 % icox=215) MONOCYTES RELATIVE PERCENT (BEAKER) (test 7 % mxyw=137) EOSINOPHILS RELATIVE PERCENT (BEAKER) (test 2 % erus=698) BASOPHILS RELATIVE PERCENT (BEAKER) (test 0 % dynh=795) NEUTROPHILS ABSOLUTE COUNT (BEAKER) (test 13.40 K/ L 1.80-8.00 ksat=794) LYMPHOCYTES ABSOLUTE COUNT (BEAKER) (test 1.53 K/ L 1.48-4.50 yqaf=508) MONOCYTES ABSOLUTE COUNT (BEAKER) (test 1.07 K/ L 0.00-1.30 xixf=705) EOSINOPHILS ABSOLUTE COUNT (BEAKER) (test 0.31 K/ L 0.00-0.50 unqm=288) BASOPHILS ABSOLUTE COUNT (BEAKER) (test 0.01 K/ L 0.00-0.20 ongx=271) 0.00COMPREHENSIVE METABOLIC [id number] 15:27:00 Test Item Value Reference Range Comments TOTAL PROTEIN (BEAKER) 7.2 gm/dL 6.0-8.3 (test zexz=741) ALBUMIN (BEAKER) (test 2.8 g/dL 3.5-5.0 fjux=7359) ALKALINE PHOSPHATASE 157 U/L 40-150 (BEAKER) (test fiur=506) BILIRUBIN TOTAL (BEAKER) 0.1 mg/dL 0.2-1.2 (test xbuy=105) SODIUM (BEAKER) (test 131 meq/L 136-145 mrqo=712) POTASSIUM (BEAKER) (test 4.0 meq/L 3.5-5.1 ybsy=971) CHLORIDE (BEAKER) (test 95 meq/L 98-107 wgub=895) CO2 (BEAKER) (test 25 meq/L 22-29 encu=188) BLOOD UREA NITROGEN 7 mg/dL 7-21 (BEAKER) (test ghlp=272) CREATININE (BEAKER) (test 0.95 mg/dL 0.57-1.25 pchm=064) GLUCOSE RANDOM (BEAKER) 655 mg/dL 70-105 (test ohqn=117) CALCIUM (BEAKER) (test 8.2 mg/dL 8.4-10.2 tikk=364) AST (SGOT) (BEAKER) (test 8 U/L 5-34 wznu=283) ALT (SGPT) (BEAKER) (test 7 U/L 6-55 cayx=098) EGFR (BEAKER) (test 88 mL/min/1.73 sq m ESTIMATED GFR IS NOT fnyy=3207) ACCURATE CREATININE CLEARANCE IN PREDICTING GLOMERULAR FILTRATION RATE. ESTIMATED GFR IS NOT APPLICABLE FOR DIALYSIS PATIENTS. POCT-LACTIC ACID, [id number] 15:01:00 Test Item Value Reference Range Comments POC-LACTIC ACID, VENOUS 2.5 mmol/L 0.9-1.7 TESTED AT [address] ([facility]) (test vfvs=5165) [facility] [address] POCT-GLUCOSE [id number] 14:59:00 Test Item Value Reference Range Comments POC-GLUCOSE METER ([facility]) > mg/dL 70-110 OUTSIDE MEASURING RANGETESTED AT (test fmus=7548) [facility] [address] [facility] [address] FUNGUS CULTURE + [id number] 19:28:00 Test Item Value Reference Range Comments CULTURE ([facility]) (test 2+ Clau albicans snul=4339) FUNGUS SMEAR ([facility]) No fungi seen (test vrww=5403) CULTURE ([facility]) (test 1 out of 3 media Aspergillus wfyp=54975) fumigatusThis is an appended report. These organism results have been appended to a previously final verified report. CBC W/PLT COUNT & AUTO [id number] 14:39:00 Test Item Value Reference Range Comments WHITE BLOOD CELL COUNT ([facility]) (test gvrh=009) 13.5 K/ L 4.0-10.0 RED BLOOD CELL COUNT (BEAKER) (test sjjk=047) 3.70 M/ L 4.00-5.00 HEMOGLOBIN (BEAKER) (test lsuf=533) 10.5 GM/DL 12.0-15.0 HEMATOCRIT (BEAKER) (test rjxw=627) 34.5 % 36.0-45.0 MEAN CORPUSCULAR VOLUME (BEAKER) (test mxwv=571) 93.4 fL 82.0-99.0 MEAN CORPUSCULAR HEMOGLOBIN (BEAKER) (test 28.4 pg 27.0-33.0 pvpz=034) MEAN CORPUSCULAR HEMOGLOBIN CONC (BEAKER) (test 30.4 GM/DL 32.0-36.0 hmwk=400) RED CELL DISTRIBUTION WIDTH (BEAKER) (test 15.7 % 10.3-14.2 hkwb=650) PLATELET COUNT (BEAKER) (test ekzj=322) 376 K/CU MM 150-430 MEAN PLATELET VOLUME (BEAKER) (test czgq=331) 8.4 fL 6.5-10.5 NUCLEATED RED BLOOD CELLS (BEAKER) (test 1 /100 WBC 0-0 iyga=075) NEUTROPHILS RELATIVE PERCENT (BEAKER) (test 88 % lbjf=967) LYMPHOCYTES RELATIVE PERCENT (BEAKER) (test 8 % rohz=400) MONOCYTES RELATIVE PERCENT (BEAKER) (test 3 % epoi=398) EOSINOPHILS RELATIVE PERCENT (BEAKER) (test 0 % rfvo=578) BASOPHILS RELATIVE PERCENT (BEAKER) (test 0 % sxbs=374) NEUTROPHILS ABSOLUTE COUNT (BEAKER) (test 11.90 K/ L 1.80-8.00 anqx=857) LYMPHOCYTES ABSOLUTE COUNT (BEAKER) (test 1.03 K/ L 1.48-4.50 jduh=361) MONOCYTES ABSOLUTE COUNT (BEAKER) (test 0.45 K/ L 0.00-1.30 slpz=726) EOSINOPHILS ABSOLUTE COUNT (BEAKER) (test 0.07 K/ L 0.00-0.50 jsow=167) BASOPHILS ABSOLUTE COUNT (BEAKER) (test 0.05 K/ L 0.00-0.20 ghik=934) 0.000.530.000.000.000.00(MANUAL DIFFERENTIAL)2016-12-12 14:39:00 Test Item Value Reference Range Comments TOTAL COUNTED (BEAKER) (test qzss=7329) WBC MORPHOLOGY (BEAKER) (test asqz=955) Normal PLT MORPHOLOGY (BEAKER) (test gzpb=519) Normal RBC MORPHOLOGY (BEAKER) (test gxcy=407) Normal [id number] 08:09:00 Test Item Value Reference Range Comments MAGNESIUM (BEAKER) (test imnb=263) 1.4 mg/dL 1.6-2.6 BASIC METABOLIC [id number] 08:09:00 Test Item Value Reference Range Comments SODIUM (BEAKER) (test 137 meq/L 136-145 atbw=373) POTASSIUM (BEAKER) (test 4.1 meq/L 3.5-5.1 padm=629) CHLORIDE (BEAKER) (test 98 meq/L 98-107 rsho=100) CO2 (BEAKER) (test 18 meq/L 22-29 zvyb=407) BLOOD UREA NITROGEN 14 mg/dL 7-21 (BEAKER) (test ahvi=653) CREATININE (BEAKER) (test 0.98 mg/dL 0.57-1.25 tztw=650) GLUCOSE RANDOM (BEAKER) 287 mg/dL 70-105 (test ofqg=445) CALCIUM (BEAKER) (test 8.9 mg/dL 8.4-10.2 bocg=859) EGFR (BEAKER) (test 85 mL/min/1.73 sq m ESTIMATED GFR IS NOT xmzf=3054) ACCURATE CREATININE CLEARANCE IN PREDICTING GLOMERULAR FILTRATION RATE. ESTIMATED GFR IS NOT APPLICABLE FOR DIALYSIS PATIENTS. POCT-GLUCOSE [id number] 15:20:00 Test Item Value Reference Range Comments POC-GLUCOSE METER (BEAKER) 212 mg/dL 70-110 TESTED AT [place] [address] [address] (test kiue=2643) [facility] [address] POCT-GLUCOSE [id number] 13:55:00 Test Item Value Reference Range Comments POC-GLUCOSE METER (BEAKER) 49 mg/dL 70-110 Notified JORDON STAPLETON/TESTED AT [facility] (test rppc=4984) [address] [place] [address] POCT-GLUCOSE [id number] 12:02:00 Test Item Value Reference Range Comments POC-GLUCOSE METER (BEAKER) 386 mg/dL 70-110 Notified JORDON STAPLETON/TESTED AT [facility] (test vfnx=4702) [address] [place] [address] POCT-GLUCOSE [id number] 08:21:00 Test Item Value Reference Range Comments POC-GLUCOSE METER (BEAKER) 173 mg/dL 70-110 TESTED AT [address] (test pvjk=1259) [place] [id number] POCT-GLUCOSE [id number] 23:54:00 Test Item Value Reference Range Comments POC-GLUCOSE METER (BEAKER) 186 mg/dL 70-110 TESTED AT [address] (test ahzz=3429) [place] [address] POCT-GLUCOSE [id number] 20:57:00 Test Item Value Reference Range Comments POC-GLUCOSE METER (BEAKER) 292 mg/dL 70-110 TESTED AT [address] (test xdpl=2052) [place] [address] POCT-GLUCOSE [id number] 18:30:00 Test Item Value Reference Range Comments POC-GLUCOSE METER (BEAKER) > mg/dL 70-110 OUTSIDE MEASURING RANGENotified RN (test jkvc=6784) or MD Patient refused repeat test/TESTED AT [place] [address] POCT-GLUCOSE [id number] 12:56:00 Test Item Value Reference Range Comments POC-GLUCOSE METER (BEAKER) 233 mg/dL 70-110 TESTED AT [address] (test nwfl=9656) [place] [address] BLOOD [id number] 10:00:00 Test Item Value Reference Range Comments CULTURE (BEAKER) (test xwqc=4624) No growth in 5 days BLOOD [id number] 10:00:00 Test Item Value Reference Range Comments CULTURE (BEAKER) (test sgmu=3387) No growth in 5 days CBC W/PLT COUNT & AUTO [id number] 09:19:00 Test Item Value Reference Range Comments WHITE BLOOD CELL COUNT (BEAKER) (test ppax=642) 10.9 K/ L 4.0-10.0 RED BLOOD CELL COUNT (BEAKER) (test fqgs=193) 3.65 M/ L 4.00-5.00 HEMOGLOBIN (BEAKER) (test fzcq=710) 9.9 GM/DL 12.0-15.0 HEMATOCRIT (BEAKER) (test vcbp=367) 32.7 % 36.0-45.0 MEAN CORPUSCULAR VOLUME (BEAKER) (test pala=392) 89.5 fL 82.0-99.0 MEAN CORPUSCULAR HEMOGLOBIN (BEAKER) (test 27.2 pg 27.0-33.0 omcu=191) MEAN CORPUSCULAR HEMOGLOBIN CONC (BEAKER) (test 30.4 GM/DL 32.0-36.0 cihi=799) RED CELL DISTRIBUTION WIDTH (BEAKER) (test 14.8 % 10.3-14.2 aqkj=634) PLATELET COUNT (BEAKER) (test kgkg=877) 357 K/CU MM 150-430 MEAN PLATELET VOLUME (BEAKER) (test bnmf=668) 8.8 fL 6.5-10.5 NUCLEATED RED BLOOD CELLS (BEAKER) (test 0 /100 WBC 0-0 uuqu=326) NEUTROPHILS RELATIVE PERCENT (BEAKER) (test 60 % mucy=960) LYMPHOCYTES RELATIVE PERCENT (BEAKER) (test 29 % dlcb=524) MONOCYTES RELATIVE PERCENT (BEAKER) (test 9 % fizo=172) EOSINOPHILS RELATIVE PERCENT (BEAKER) (test 3 % bwrt=623) BASOPHILS RELATIVE PERCENT (BEAKER) (test 0 % boua=891) NEUTROPHILS ABSOLUTE COUNT (BEAKER) (test 6.50 K/ L 1.80-8.00 tkrk=928) LYMPHOCYTES ABSOLUTE COUNT (BEAKER) (test 3.15 K/ L 1.48-4.50 iibt=885) MONOCYTES ABSOLUTE COUNT (BEAKER) (test 0.94 K/ L 0.00-1.30 fecp=768) EOSINOPHILS ABSOLUTE COUNT (BEAKER) (test 0.27 K/ L 0.00-0.50 qtpn=034) BASOPHILS ABSOLUTE COUNT (BEAKER) (test 0.02 K/ L 0.00-0.20 ijdk=921) [id number] 07:34:00 Test Item Value Reference Range Comments MAGNESIUM (BEAKER) (test odiw=578) 1.4 mg/dL 1.6-2.6 BASIC METABOLIC [id number] 07:34:00 Test Item Value Reference Range Comments SODIUM (BEAKER) (test 133 meq/L 136-145 qgsh=301) POTASSIUM (BEAKER) (test 4.6 meq/L 3.5-5.1 ncpl=370) CHLORIDE (BEAKER) (test 101 meq/L 98-107 vsek=739) CO2 (BEAKER) (test 24 meq/L 22-29 gbha=040) BLOOD UREA NITROGEN 15 mg/dL 7-21 (BEAKER) (test seah=473) CREATININE (BEAKER) (test 0.68 mg/dL 0.57-1.25 pcnq=449) GLUCOSE RANDOM (BEAKER) 284 mg/dL 70-105 (test xgbq=619) CALCIUM (BEAKER) (test 9.1 mg/dL 8.4-10.2 qiqi=895) EGFR (BEAKER) (test 129 mL/min/1.73 sq m ESTIMATED GFR IS NOT kbri=0305) ACCURATE CREATININE CLEARANCE IN PREDICTING GLOMERULAR FILTRATION RATE. ESTIMATED GFR IS NOT APPLICABLE FOR DIALYSIS PATIENTS. POCT-GLUCOSE [id number] 21:23:00 Test Item Value Reference Range Comments POC-GLUCOSE METER (BEAKER) 230 mg/dL 70-110 TESTED AT [address] (test tgqi=4000) [place] [id number] POCT-GLUCOSE [id number] 17:41:00 Test Item Value Reference Range Comments POC-GLUCOSE METER (BEAKER) 195 mg/dL 70-110 TESTED AT [address] (test kgws=4686) [facility] [address] CBC W/PLT COUNT & AUTO [id number] 15:23:00 Test Item Value Reference Range Comments WHITE BLOOD CELL COUNT (BEAKER) (test esmc=451) 12.2 K/ L 4.0-10.0 RED BLOOD CELL COUNT (BEAKER) (test jnjh=696) 3.75 M/ L 4.00-5.00 HEMOGLOBIN (BEAKER) (test wnhu=107) 10.3 GM/DL 12.0-15.0 HEMATOCRIT (BEAKER) (test qapp=700) 33.5 % 36.0-45.0 MEAN CORPUSCULAR VOLUME (BEAKER) (test vlzp=157) 89.5 fL 82.0-99.0 MEAN CORPUSCULAR HEMOGLOBIN (BEAKER) (test 27.5 pg 27.0-33.0 xgmc=852) MEAN CORPUSCULAR HEMOGLOBIN CONC (BEAKER) (test 30.7 GM/DL 32.0-36.0 ttsv=966) RED CELL DISTRIBUTION WIDTH (BEAKER) (test 14.7 % 10.3-14.2 ipzg=549) PLATELET COUNT (BEAKER) (test mpln=780) 354 K/CU MM 150-430 MEAN PLATELET VOLUME (BEAKER) (test dpeh=324) 8.8 fL 6.5-10.5 NUCLEATED RED BLOOD CELLS (BEAKER) (test 0 /100 WBC 0-0 acnr=218) NEUTROPHILS RELATIVE PERCENT (BEAKER) (test 73 % ahfu=502) LYMPHOCYTES RELATIVE PERCENT (BEAKER) (test 18 % nrfg=809) MONOCYTES RELATIVE PERCENT (BEAKER) (test 8 % eela=383) EOSINOPHILS RELATIVE PERCENT (BEAKER) (test 1 % lugj=582) BASOPHILS RELATIVE PERCENT (BEAKER) (test 0 % bzgf=516) NEUTROPHILS ABSOLUTE COUNT (BEAKER) (test 8.95 K/ L 1.80-8.00 nnay=904) LYMPHOCYTES ABSOLUTE COUNT (BEAKER) (test 2.13 K/ L 1.48-4.50 ahwq=067) MONOCYTES ABSOLUTE COUNT (BEAKER) (test 0.95 K/ L 0.00-1.30 pgbh=368) EOSINOPHILS ABSOLUTE COUNT (BEAKER) (test 0.16 K/ L 0.00-0.50 miuy=432) BASOPHILS ABSOLUTE COUNT (BEAKER) (test 0.01 K/ L 0.00-0.20 ytni=569) 0.000.520.000.000.000.00(MANUAL DIFFERENTIAL)2016-12-09 15:23:00 Test Item Value Reference Range Comments TOTAL COUNTED (BEAKER) (test vehp=0914) WBC MORPHOLOGY (BEAKER) (test zrfh=596) Normal PLT MORPHOLOGY (BEAKER) (test stgl=511) Normal RBC MORPHOLOGY (BEAKER) (test zbxh=215) Normal POCT-GLUCOSE [id number] 11:49:00 Test Item Value Reference Range Comments POC-GLUCOSE METER (BEAKER) 370 mg/dL 70-110 Notified RN or MD Patient (test punk=4876) refused repeat test/TESTED AT [facility] [address] [facility] [address] POCT-GLUCOSE [id number] 11:45:00 Test Item Value Reference Range Comments POC-GLUCOSE METER (BEAKER) 424 mg/dL 70-110 Notified RN or MD Patient (test vdhn=3224) refused repeat test/TESTED AT [facility] [address] [facility] [address] CF RESPIRATORY [id number] 10:46:00 Test Item Value Reference Range Comments CULTURE (Alaris RoyaltyAKER) (test PSEUDOMONAS 4+ Pseudomonas zghd=3476) AERUGINOSA aeruginosa Amikacin (test code=1) Susceptible 0-16 , Resistant <0 or >16 Aztreonam (test Susceptible 0-8 , code=32) Resistant <0 or >8 Cefepime (test code=51) Susceptible 0-8 , Resistant <0 or >8 Ceftazidime (test Susceptible 0-8 , code=27) Resistant <0 or >8 Ciprofloxacin (test Susceptible 0-1 , code=7) Resistant <0 or >1 Doripenem (test Susceptible 0-2 , njad=177) Resistant <0 or >2 Gentamicin (test Susceptible [...] , code=25) Resistant <0 or >4 CULTURE (Bread) (test PSEUDOMONAS 4+ Pseudomonas lbmb=[id number]) AERUGINOSA aeruginosaof a second type Amikacin (test code=1) Susceptible 0-16 , Resistant <0 or >16 Aztreonam (test Susceptible 0-8 , code=32) Resistant <0 or >8 Cefepime (test code=51) Susceptible 0-8 , Resistant <0 or >8 Ceftazidime (test Susceptible 0-8 , code=27) Resistant <0 or >8 Ciprofloxacin (test Susceptible 0-1 , code=7) Resistant <0 or >1 Doripenem (test Susceptible 0-2 , pdrr=229) Resistant <0 or >2 Gentamicin (test Susceptible [...] <0 or >4 CULTURE (BEAKER) (test PSEUDOMONAS Pseudomonas iohi=66666) AERUGINOSA aeruginosaof a third type Amikacin (test code=1) Susceptible 0-16 , Resistant <0 or >16 Aztreonam (test Susceptible 0-8 , code=32) Resistant <0 or >8 Cefepime (test code=51) Susceptible 0-8 , Resistant <0 or >8 Ceftazidime (test Susceptible 0-8 , code=27) Resistant <0 or >8 Ciprofloxacin (test Susceptible 0-1 , code=7) Resistant <0 or >1 Doripenem (test Susceptible 0-2 , xruz=892) Resistant <0 or >2 Gentamicin (test Susceptible [...] or >4 3+ Normal respiratory derick presentPOCT-GLUCOSE [id number] 10:07:00 Test Item Value Reference Range Comments POC-GLUCOSE METER (BEAKER) 112 mg/dL 70-110 TESTED AT [facility] [address] [facility] (test uott=9805) [facility] [address] [id number] 07:09:00 Test Item Value Reference Range Comments MAGNESIUM (BEAKER) (test wvkw=928) 1.6 mg/dL 1.6-2.6 BASIC METABOLIC [id number] 07:09:00 Test Item Value Reference Range Comments SODIUM (BEAKER) (test 135 meq/L 136-145 stii=909) POTASSIUM (BEAKER) (test 4.0 meq/L 3.5-5.1 zoyk=784) CHLORIDE (BEAKER) (test 101 meq/L 98-107 lsyn=507) CO2 (BEAKER) (test 27 meq/L 22-29 ddvk=017) BLOOD UREA NITROGEN 8 mg/dL 7-21 (BEAKER) (test ipyd=393) CREATININE (BEAKER) (test 0.55 mg/dL 0.57-1.25 cybv=531) GLUCOSE RANDOM (BEAKER) 133 mg/dL 70-105 (test okjm=771) CALCIUM (BEAKER) (test 8.8 mg/dL 8.4-10.2 yiml=736) EGFR (BEAKER) (test 165 mL/min/1.73 sq m ESTIMATED GFR IS NOT zjer=6614) ACCURATE CREATININE CLEARANCE IN PREDICTING GLOMERULAR FILTRATION RATE. ESTIMATED GFR IS NOT APPLICABLE FOR DIALYSIS PATIENTS. POCT-GLUCOSE [id number] 20:59:00 Test Item Value Reference Range Comments POC-GLUCOSE METER (BEAKER) 294 mg/dL 70-110 TESTED AT [address] (test iaxu=5834) [facility] [id number] POCT-GLUCOSE [id number] 18:18:00 Test Item Value Reference Range Comments POC-GLUCOSE METER (BEAKER) 238 mg/dL 70-110 TESTED AT [facility] [address] [facility] (test vhyu=2927) [facility] [address] AFB CULTURE + [id number] 17:58:00 Test Item Value Reference Range Comments CULTURE (BEAKER) (test No acid-fast bacilli isolated hgpd=7024) in 42 days AFB SMEAR (BEAKER) (test No acid fast bacilli seen hahr=456)
--- NOTE | 2018-12-12 10:22 | RAD REPORT ---
EXAM DESCRIPTION: RAD - Wrist Left 3 View - 12/12/2018 9:27 am CLINICAL HISTORY: PAIN Pain COMPARISON: No comparisons FINDINGS: No fracture or dislocation seen. No foreign body or other soft tissue abnormality. Vascu lar calcification noted. IMPRESSION: No acute wrist finding.
--- NOTE | 2018-12-12 10:34 | EDPHYS ---
Physician Documentation [facility] Name: Ester Hagen Age: 28 yrs Sex: Female : 1990 Arrival Date: 12/12/2018 Time: 09:01 Bed 20 Private MD: None, None ED Physician Michael Yip HPI: 12/12 09:55 This 28 yrs old Black Female presents to ER via Ambulatory with complaints of Wrist kb Pain. 09:55 The patient or guardian reports decreased range of motion, pain, tenderness. The kb complaints affect the left wrist diffusely. Context: The problem was sustained at home, resulted from lifting or pulling. Onset: The symptoms/episode began/occurred last night. Modifying factors: The symptoms are alleviated by nothing, the symptoms are aggravated by movement. Associated signs and symptoms: The patient has no apparent associated signs or symptoms. The patient has not experienced similar symptoms in the past. The patient has not recently seen a physician. Pt reports she picked up a cup last night and started having pain to left wrist. 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 - Social history:: Smoking status: Patient/guardian denies using tobacco. - Ebola Screening: : No symptoms or risks identified at this time. ROS: 09:35 Constitutional: Negative for fever, chills, and weight loss, Cardiovascular: Negative kb for chest pain, palpitations, and edema, Respiratory: Negative for shortness of breath, cough, wheezing, and pleuritic chest pain, Abdomen/GI: Negative for abdominal pain, nausea, vomiting, diarrhea, and constipation, Skin: Negative for injury, rash, and discoloration, Neuro: Negative for headache, weakness, numbness, tingling, and seizure. 09:35 MS/extremity: Positive for pain, tenderness, of the left wrist. Exam: 09:35 Constitutional: This is a well developed, well nourished patient who is awake, alert, kb and in no acute distress. Head/Face: Normocephalic, atraumatic. Vital Signs: 09:12 BP 114 / 83; Pulse 133; Resp 20; Temp 98.4; Pulse Ox 95% on 3 lpm NC; Pain 9/10; hb 10:00 BP 118 / 80; Pulse 125; Resp 20; Pulse Ox 98% on 3 lpm NC; hb MDM: 09:05 Patient medically screened. kb 09:35 Data reviewed: vital signs, nurses notes. Data interpreted: Pulse oximetry: on room air kb is 95 %. Interpretation: normal. 10:32 Counseling: I had a detailed discussion with the patient and/or guardian regarding: the kb historical points, exam findings, and any diagnostic results supporting the discharge/admit diagnosis, radiology results, the need for outpatient follow up, a family practitioner, a orthopedic surgeon, to return to the emergency department if symptoms worsen or persist or if there are any questions or concerns that arise at home. 12/12 09:09 Order name: Wrist Left (3 View) XRAY; Complete Time: 10:30 kb 12/12 10:33 Order name: Wrist Splint; Complete Time: 10:59 kb Administered Medications: 10:45 Drug: TORadol 60 mg Route: IM; Site: left vastus lateralis; ss Disposition: 12/13 07:11 Co-signature as Attending Physician, Michael Yip MD I agree with the assessment and tomás plan of care. Disposition: 12/12/18 10:33 Discharged to Home. Impression: Pain in left wrist. - Condition is Stable. - Discharge Instructions: Wrist Pain, [id number]. - Medication Reconciliation Form, Thank You Letter, Antibiotic Education, Prescription Opioid Use form. - Follow up: Emergency Department; When: As needed; Reason: Worsening of condition. Follow up: Private Physician; When: 2 - 3 days; Reason: Recheck today's complaints, Continuance of care, Re-evaluation by your physician. Signatures: Dispatcher [employer] EDRosaura Mobley, Michael Quevedo MD MD cha Smirch, Shelby, JORDON RN ss Lin Fernandez RN RN Corrections: (The following items were deleted from the chart) 12/12 11:00 10:33 12/12/2018 10:33 Discharged to Home. Impression: Pain in left wrist. Condition is ss Stable. Forms are Medication Reconciliation Form, Thank You Letter, Antibiotic Education, Prescription Opioid Use. Follow up: Emergency Department; When: As needed; Reason: Worsening of condition. Follow up: Private Physician; When: 2 - 3 days; Reason: Recheck today's complaints, Continuance of care, Re-evaluation by your physician. kb
--- NOTE | 2018-12-12 10:34 | ER ---
Nurse's Notes [facility] Name: Ester Hagen Age: 28 yrs Sex: Female : 1990 Arrival Date: 12/12/2018 Time: 09:01 Bed 20 Private MD: None, None Diagnosis: Pain in left wrist Presentation: 12/12 09:13 Presenting complaint: Left wrist pain x 2 days. Denies injury. Transition of care: hb patient was not received from another setting of care. Onset of symptoms was December 11, 2018. Risk Assessment: Do you want to hurt yourself or someone else? Patient reports no desire to harm self or others. Initial Sepsis Screen: Does the patient meet any 2 criteria? No. Patient's initial sepsis screen is negative. Does the patient have a suspected source of infection? No. Patient's initial sepsis screen is negative. Care prior to arrival: None. 09:13 Method Of Arrival: Ambulatory 09:13 Acuity: DEDRA 4 hb Triage Assessment: 09:14 General: Appears in no apparent distress. Behavior is calm, cooperative. Pain: Pain hb currently is 9 out of 10 on a pain scale. Neuro: Level of Consciousness is awake, alert, obeys commands, Oriented to person, place, time, situation. Cardiovascular: Capillary refill < 3 seconds Patient's skin is warm and dry. Respiratory: Airway is patent Respiratory effort is even, mildly labored, at baseline per pt, hx of CF Respiratory pattern is regular, symmetrical. GI: No signs and/or symptoms were reported involving the gastrointestinal system. : No signs and/or symptoms were reported regarding the genitourinary system. Derm: Skin is intact, is healthy with good turgor. Musculoskeletal: Reports left wrist pain. 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 - Social history:: Smoking status: Patient/guardian denies using tobacco. - Ebola Screening: : No symptoms or risks identified at this time. Screenin:15 Abuse screen: Denies threats or abuse. Denies injuries from another. Nutritional hb screening: No deficits noted. Tuberculosis screening: No symptoms or risk factors identified. Fall Risk None identified. Assessment: 09:15 General: see triage assessment. hb 10:12 Reassessment: Patient appears in no apparent distress at this time. Patient and/or hb family updated on plan of care and expected duration. Pain level reassessed. Patient is alert, oriented x 3, equal unlabored respirations, skin warm/dry/pink. Vital Signs: 09:12 BP 114 / 83; Pulse 133; Resp 20; Temp 98.4; Pulse Ox 95% on 3 lpm NC; Pain 9/10; hb 10:00 BP 118 / 80; Pulse 125; Resp 20; Pulse Ox 98% on 3 lpm NC; hb ED Course: 09:01 Patient arrived in ED. mr 09:01 None, None is Private Physician. mr 09:01 Ros[facility] Wheeler [facility]C [facility] kb 09:01 Michael Yip MD is Attending Physician. kb 09:12 Lin Fernandez, RN is Primary Nurse. hb 09:13 Triage completed. hb 09:14 Arm band placed on. hb 09:15 Patient has correct armband on for positive identification. Bed in low position. Call hb light in reach. Side rails up X 1. 09:27 Wrist Left (3 View) XRAY In Process Unspecified. EDMS 10:59 No provider procedures requiring assistance completed. Patient did not have IV access ss during this emergency room visit. Administered Medications: 10:45 Drug: TORadol 60 mg Route: IM; Site: left vastus lateralis; ss Outcome: 10:33 Discharge ordered by . kb 10:59 Discharged to home ambulatory. ss 10:59 Condition: good 10:59 Discharge instructions given to patient, family, Instructed on discharge instructions, follow up and referral plans. medication usage, Demonstrated understanding of instructions, follow-up care, medications. 11:00 Patient left the ED. ss Signatures: Dispatcher [employer] EDMS Rosaura Wheeler FNP-C FNP-Ckb Sravanthi DeleonRosalinda martin, JORDON RN Lin Fernandez, RN RN
[2018-12-12] MEDS ORDERED: KETOROLAC 30 MG/ML INJ ONE (10:47)
== END 2018-12-12 11:00 | disposition home or self-care (01) ==
LOC: ER 08:57
DX: M25.532 Pain in left wrist (principal); J45.909 Unspecified asthma, uncomplicated; E11.9 Type 2 diabetes mellitus without complications; E84.9 Cystic fibrosis, unspecified; Z79.4 Long term (current) use of insulin; Z88.8 Allergy status to other drugs, medicaments and biological substances; Z88.1 Allergy status to other antibiotic agents; Z91.041 Radiographic dye allergy status

== ENCOUNTER 2019-12-30 17:28 | Emergency (ER) | payer OTHER ==
--- OUTSIDE RECORDS SUMMARY | 2019-12-30 18:04 | XMS REPORT ---
:1990 Author Organization [facility] Address [address] [place] [address] Dr. Awad [address] [place] [id number] Care Team Providers Name Role Phone ARIELLA CORRALESAND Unavailable Unavailable PETEY FORMAN Unavailable Unavailable FLIP RAINEY Unavailable Unavailable RUTHANN GOSS Unavailable Unavailable MARCO HUIZAR Unavailable Unavailable MADISYN MATTHEWS Unavailable Unavailable TUSHAR DOUGLAS Unavailable Unavailable MOY SOLITARIO Unavailable Unavailable SHANON PEREIRA Unavailable Unavailable ANNIKA BARRY Unavailable Unavailable JERALD VIGIL Unavailable Unavailable AYANNAETHAN HUMERA Unavailable Unavailable MAXX LOPEZ Unavailable Unavailable YOSELYN HESTER Unavailable Unavailable TRACI VALADEZ Unavailable Unavailable THOMAS MAST Unavailable Unavailable URVASHI NATHAN Unavailable Unavailable RYAN MORALES Unavailable Unavailable TATIANA TURNER Unavailable Unavailable JACQUE ROY Unavailable Unavailable Problems This patient has no known problems. Allergies, Adverse Reactions, Alerts This patient has no known allergies or adverse reactions. Medications This patient has no known medications. Results Test Description Test Time Test Comments Text Results Atomic Results Result Comments AFB CULTURE + SMEAR (NON-SPUTUM) 2019-12-18 15:21:00 Test Item Value Reference Range Comments CULTURE (BEAKER) (test bzga=2109) No acid-fast bacilli isolated in 42 days AFB SMEAR (BEAKER) (test segi=735) No acid fast bacilli seen FUNGUS CULTURE + [id number] 17:07:00 Test Item Value Reference Range Comments CULTURE (BEAKER) (test 2+ Clau dubliniensis cebl=9054) FUNGUS SMEAR (BEAKER) (test No fungi seen kdra=5422) CF RESPIRATORY [id number] 07:18:00 Test Item Value Reference Range Comments CULTURE (BEAKER) (test PSEUDOMONAS <1+ Pseudomonas eadh=8383) AERUGINOSA aeruginosa (MUCOID-PHENOTYPE) (Mucoid-phenotype)mu coid colony type Amikacin (test code=1) Susceptible 0-16 , Resistant <0 or >16 Aztreonam (test Susceptible 0-8 , code=32) Resistant <0 or >8 Cefepime (test code=51) Susceptible 0-8 , Resistant <0 or >8 Ceftazidime (test Susceptible 0-8 , code=27) Resistant <0 or >8 Ciprofloxacin (test Susceptible 0-0.5 , code=7) Resistant <0 or >.5 Gentamicin (test Susceptible 0-4 , code=18) Resistant <0 or >4 Levofloxacin (test Susceptible 0-1 , code=22) Resistant <0 or >1 Meropenem (test Susceptible 0-2 , code=34) Resistant <0 or >2 Piperacillin (test Susceptible 0-16 , code=24) Resistant <0 or >16 Piperacillin + Susceptible 0-16 , Tazobactam (test Resistant <0 or >16 code=29) Tobramycin (test Susceptible 0-4 , code=25) Resistant <0 or >4 CULTURE (BEAKER) (test PSEUDOMONAS <1+ Pseudomonas iwxk=6446) AERUGINOSA aeruginosa Amikacin (test code=1) Susceptible 0-16 , Resistant <0 or >16 Aztreonam (test Susceptible 0-8 , code=32) Resistant <0 or >8 Cefepime (test code=51) Susceptible 0-8 , Resistant <0 or >8 Ceftazidime (test Susceptible 0-8 , code=27) Resistant <0 or >8 Ciprofloxacin (test Susceptible 0-0.5 , code=7) Resistant <0 or >.5 Gentamicin (test Susceptible 0-4 , code=18) Resistant <0 or >4 Levofloxacin (test Susceptible 0-1 , code=22) Resistant <0 or >1 Meropenem (test Susceptible 0-2 , code=34) Resistant <0 or >2 Piperacillin (test Susceptible 0-16 , code=24) Resistant <0 or >16 Piperacillin + Susceptible 0-16 , Tazobactam (test Resistant <0 or >16 code=29) Tobramycin (test Susceptible 0-4 , code=25) Resistant <0 or >4 4+ Normal respiratory derick presentSPIN/CONCENTRATION [id number] 01:32:00 Test Item Value Reference Range Comments CONCENTRATION CHARGED (BEAKER) (test yiev=7512) Done AFB CULTURE + [id number] 11:55:00 Test Item Value Reference Range Comments CULTURE (BEAKER) (test No acid-fast bacilli isolated cahd=7854) in 42 days AFB SMEAR (BEAKER) (test No acid fast bacilli seen ttha=320) HEMOGLOBIN [id number] 09:08:00 Test Item Value Reference Range Comments HEMOGLOBIN A1C (BEAKER) (test doir=913) 11.1 % 4.3-6.1 FUNGUS CULTURE + [id number] 17:41:00 Test Item Value Reference Range Comments CULTURE (BEAKER) (test 1+ Clau dubliniensis dnza=7803) FUNGUS SMEAR (BEAKER) (test No fungi seen wavq=8667) POCT-GLUCOSE [id number] 12:02:00 Test Item Value Reference Range Comments POC-GLUCOSE METER (BEAKER) 89 mg/dL 70-110 : TESTED AT [address] (test oxqy=1313) [facility], [address]: Triage Technician/Career Placement Services Counselor [phone] for Roberts, Serkialem POCT-GLUCOSE [id number] 08:32:00 Test Item Value Reference Range Comments POC-GLUCOSE METER (BEAKER) 101 mg/dL 70-110 : TESTED AT [address] (test gcec=4359) [facility], [address]: Triage Technician/Career Placement Services Counselor [phone] for Roberts, Serkialem [id number] 06:13:00 Test Item Value Reference Range Comments PHOSPHORUS (BEAKER) (test grzq=455) 4.0 mg/dL 2.3-4.7 [id number] 06:13:00 Test Item Value Reference Range Comments MAGNESIUM (BEAKER) (test nzzv=803) 1.8 mg/dL 1.6-2.6 BASIC METABOLIC [id number] 06:13:00 Test Item Value Reference Range Comments SODIUM (BEAKER) (test 140 meq/L 136-145 iqes=373) POTASSIUM (BEAKER) (test 4.5 meq/L 3.5-5.1 dolb=476) CHLORIDE (BEAKER) (test 105 meq/L 98-107 xogd=112) CO2 (BEAKER) (test 30 meq/L 22-29 ykwy=468) BLOOD UREA NITROGEN 28 mg/dL 7-21 (BEAKER) (test folw=527) CREATININE (BEAKER) (test 0.72 mg/dL 0.57-1.25 qudo=783) GLUCOSE RANDOM (BEAKER) 210 mg/dL 70-105 (test hjhm=841) CALCIUM (BEAKER) (test 8.0 mg/dL 8.4-10.2 ygee=983) EGFR (BEAKER) (test 118 mL/min/1.73 sq m ESTIMATED GFR IS NOT zmib=2342) ACCURATE CREATININE CLEARANCE IN PREDICTING GLOMERULAR FILTRATION RATE. ESTIMATED GFR IS NOT APPLICABLE FOR DIALYSIS PATIENTS. CALCIUM, [id number] 05:13:00 Test Item Value Reference Range Comments CALCIUM IONIZED (BEAKER) (test odhm=348) 1.03 mmol/L 1.12-1.27 PH, BLOOD (BEAKER) (test dvhq=4327) 7.39 CBC W/PLT COUNT & AUTO [id number] 04:34:00 Test Item Value Reference Range Comments WHITE BLOOD CELL COUNT (BEAKER) (test xjjy=990) 12.6 K/ L 3.5-10.5 RED BLOOD CELL COUNT (BEAKER) (test bjsh=345) 3.36 M/ L 3.93-5.22 HEMOGLOBIN (BEAKER) (test ubix=549) 9.1 GM/DL 11.2-15.7 HEMATOCRIT (BEAKER) (test hkrt=119) 30.7 % 34.1-44.9 MEAN CORPUSCULAR VOLUME (BEAKER) (test ukyh=699) 91.4 fL 79.4-94.8 MEAN CORPUSCULAR HEMOGLOBIN (BEAKER) (test 27.1 pg 25.6-32.2 imat=214) MEAN CORPUSCULAR HEMOGLOBIN CONC (BEAKER) (test 29.6 GM/DL 32.2-35.5 jxmi=501) RED CELL DISTRIBUTION WIDTH (BEAKER) (test 16.8 % 11.7-14.4 spof=016) PLATELET COUNT (BEAKER) (test jprf=785) 284 K/CU MM 150-450 MEAN PLATELET VOLUME (BEAKER) (test bbmi=807) 12.1 fL 9.4-12.3 NUCLEATED RED BLOOD CELLS (BEAKER) (test 0 /100 WBC 0-0 okkd=479) NEUTROPHILS RELATIVE PERCENT (BEAKER) (test 63 % okbf=400) LYMPHOCYTES RELATIVE PERCENT (BEAKER) (test 24 % lvzi=476) MONOCYTES RELATIVE PERCENT (BEAKER) (test 9 % jwyh=918) EOSINOPHILS RELATIVE PERCENT (BEAKER) (test 4 % qrxq=308) BASOPHILS RELATIVE PERCENT (BEAKER) (test 0 % pbhn=029) NEUTROPHILS ABSOLUTE COUNT (BEAKER) (test 7.90 K/ L 1.56-6.13 rink=382) LYMPHOCYTES ABSOLUTE COUNT (BEAKER) (test 2.97 K/ L 1.18-3.74 scjp=039) MONOCYTES ABSOLUTE COUNT (BEAKER) (test 1.09 K/ L 0.24-0.36 edlh=165) EOSINOPHILS ABSOLUTE COUNT (BEAKER) (test 0.52 K/ L 0.04-0.36 qbpc=555) BASOPHILS ABSOLUTE COUNT (BEAKER) (test 0.04 K/ L 0.01-0.08 cbbm=430) IMMATURE GRANULOCYTES-RELATIVE PERCENT (BEAKER) 1 % 0-1 (test nmhw=3974) POCT-GLUCOSE [id number] 22:25:00 Test Item Value Reference Range Comments POC-GLUCOSE METER (BEAKER) 297 mg/dL 70-110 : TESTED AT [address] (test mzff=8505) [facility], [address]: Triage Technician/Career Placement Services Counselor [phone] for GRIFFIN ARIAS POCT-GLUCOSE [id number] 17:01:00 Test Item Value Reference Range Comments POC-GLUCOSE METER (BEAKER) 173 mg/dL 70-110 : TESTED AT [address] (test oylf=1038) [facility], [address]: Triage Technician/Career Placement Services Counselor [phone] for SARAH, HALIMA POCT-GLUCOSE [id number] 12:08:00 Test Item Value Reference Range Comments POC-GLUCOSE METER (BEAKER) 140 mg/dL 70-110 : TESTED AT [address] (test vvst=5357) [facility], [address]: Triage Technician/Career Placement Services Counselor [phone] for SARAH, HALIMA POCT-GLUCOSE [id number] 08:20:00 Test Item Value Reference Range Comments POC-GLUCOSE METER (BEAKER) 89 mg/dL 70-110 : TESTED AT [facility] [address] (test wlzv=1561) [facility], [address]: Triage Technician/Career Placement Services Counselor [phone] for HALIMA SARAH [id number] 07:03:00 Test Item Value Reference Range Comments PHOSPHORUS (BEAKER) (test suhn=813) 4.5 mg/dL 2.3-4.7 [id number] 07:03:00 Test Item Value Reference Range Comments MAGNESIUM (BEAKER) (test jqcx=773) 1.7 mg/dL 1.6-2.6 COMPREHENSIVE METABOLIC [id number] 07:03:00 Test Item Value Reference Range Comments TOTAL PROTEIN (BEAKER) 5.5 gm/dL 6.0-8.3 (test xlco=537) ALBUMIN (BEAKER) (test 2.4 g/dL 3.5-5.0 dqaw=0310) ALKALINE PHOSPHATASE 93 U/L 40-150 (BEAKER) (test enms=132) BILIRUBIN TOTAL (BEAKER) 0.1 mg/dL 0.2-1.2 (test lzqf=011) SODIUM (BEAKER) (test 140 meq/L 136-145 amux=617) POTASSIUM (BEAKER) (test 4.6 meq/L 3.5-5.1 fzri=239) CHLORIDE (BEAKER) (test 102 meq/L 98-107 ihlr=139) CO2 (BEAKER) (test 33 meq/L 22-29 rldx=771) BLOOD UREA NITROGEN 35 mg/dL 7-21 (BEAKER) (test fohh=433) CREATININE (BEAKER) (test 0.70 mg/dL 0.57-1.25 eyeq=659) GLUCOSE RANDOM (BEAKER) 82 mg/dL 70-105 (test vuui=568) CALCIUM (BEAKER) (test 8.3 mg/dL 8.4-10.2 plcl=080) AST (SGOT) (BEAKER) (test 46 U/L 5-34 cpae=444) ALT (SGPT) (BEAKER) (test 107 U/L 6-55 aqnp=236) EGFR (BEAKER) (test 122 mL/min/1.73 sq ESTIMATED GFR IS NOT phwe=2327) m ACCURATE CREATININE CLEARANCE IN PREDICTING GLOMERULAR FILTRATION RATE. ESTIMATED GFR IS NOT APPLICABLE FOR DIALYSIS PATIENTS. CBC W/PLT COUNT & AUTO [id number] 06:17:00 Test Item Value Reference Range Comments WHITE BLOOD CELL COUNT (BEAKER) (test ciiz=425) 15.6 K/ L 3.5-10.5 RED BLOOD CELL COUNT (BEAKER) (test wjjj=777) 3.65 M/ L 3.93-5.22 HEMOGLOBIN (BEAKER) (test ibau=019) 9.9 GM/DL 11.2-15.7 HEMATOCRIT (BEAKER) (test ahmb=576) 32.4 % 34.1-44.9 MEAN CORPUSCULAR VOLUME (BEAKER) (test bwgz=448) 88.8 fL 79.4-94.8 MEAN CORPUSCULAR HEMOGLOBIN (BEAKER) (test 27.1 pg 25.6-32.2 oyfs=666) MEAN CORPUSCULAR HEMOGLOBIN CONC (BEAKER) (test 30.6 GM/DL 32.2-35.5 vpry=148) RED CELL DISTRIBUTION WIDTH (BEAKER) (test 16.5 % 11.7-14.4 mzat=030) PLATELET COUNT (BEAKER) (test jszo=404) 315 K/CU MM 150-450 MEAN PLATELET VOLUME (BEAKER) (test fcer=095) 11.5 fL 9.4-12.3 NUCLEATED RED BLOOD CELLS (BEAKER) (test 0 /100 WBC 0-0 awbn=551) NEUTROPHILS RELATIVE PERCENT (BEAKER) (test 67 % kxsc=369) LYMPHOCYTES RELATIVE PERCENT (BEAKER) (test 22 % akdc=065) MONOCYTES RELATIVE PERCENT (BEAKER) (test 8 % mzuh=583) EOSINOPHILS RELATIVE PERCENT (BEAKER) (test 3 % hswi=918) BASOPHILS RELATIVE PERCENT (BEAKER) (test 0 % siyz=830) NEUTROPHILS ABSOLUTE COUNT (BEAKER) (test 10.39 K/ L 1.56-6.13 dzbw=015) LYMPHOCYTES ABSOLUTE COUNT (BEAKER) (test 3.37 K/ L 1.18-3.74 llmn=722) MONOCYTES ABSOLUTE COUNT (BEAKER) (test 1.17 K/ L 0.24-0.36 yhnq=478) EOSINOPHILS ABSOLUTE COUNT (BEAKER) (test 0.53 K/ L 0.04-0.36 qvql=428) BASOPHILS ABSOLUTE COUNT (BEAKER) (test 0.03 K/ L 0.01-0.08 akpi=661) IMMATURE GRANULOCYTES-RELATIVE PERCENT (BEAKER) 1 % 0-1 (test txoq=1583) CALCIUM, [id number] 05:53:00 Test Item Value Reference Range Comments CALCIUM IONIZED (BEAKER) (test tjds=153) 1.10 mmol/L 1.12-1.27 PH, BLOOD (BEAKER) (test gqfd=4815) 7.40 POCT-GLUCOSE [id number] 21:39:00 Test Item Value Reference Range Comments POC-GLUCOSE METER (BEAKER) 260 mg/dL 70-110 : TESTED AT [address] (test uxjo=1387) [facility], [address]: Triage Technician/Career Placement Services Counselor [phone] for GRIFFIN ARIAS UPPER RESPIRATORY [id number] 20:25:00 Test Item Value Reference Range Comments CULTURE (BEAKER) (test 2+ Normal respiratory derick fazv=2263) present POCT-GLUCOSE [id number] 17:23:00 Test Item Value Reference Range Comments POC-GLUCOSE METER (BEAKER) 118 mg/dL 70-110 : TESTED AT [address] (test ekha=4558) [facility], [address]: Triage Technician/Career Placement Services Counselor [phone] for HALIMA SARAH POCT-GLUCOSE [id number] 12:04:00 Test Item Value Reference Range Comments POC-GLUCOSE METER (BEAKER) 157 mg/dL 70-110 : TESTED AT [address] (test sgvy=0177) [facility], [address]: Triage Technician/Career Placement Services Counselor [phone] for HALMIA SARAH HEPATIC FUNCTION [id number] 10:56:00 Test Item Value Reference Range Comments TOTAL PROTEIN (BEAKER) (test eaxp=972) 5.6 gm/dL 6.0-8.3 ALBUMIN (BEAKER) (test megk=2763) 2.4 g/dL 3.5-5.0 BILIRUBIN TOTAL (BEAKER) (test nzqq=591) 0.1 mg/dL 0.2-1.2 BILIRUBIN DIRECT (BEAKER) (test zhjb=284) 0.1 mg/dL 0.1-0.5 ALKALINE PHOSPHATASE (BEAKER) (test dars=910) 97 U/L 40-150 AST (SGOT) (BEAKER) (test nxup=718) 101 U/L 5-34 ALT (SGPT) (BEAKER) (test xhua=108) 150 U/L 6-55 POCT-GLUCOSE [id number] 07:54:00 Test Item Value Reference Range Comments POC-GLUCOSE METER (BEAKER) 113 mg/dL 70-110 : TESTED AT [facility] [address] [facility] (test yjpl=7354) [facility], [address]: Triage Technician/Career Placement Services Counselor [phone] for HALIMA SARAH [id number] 06:57:00 Test Item Value Reference Range Comments PHOSPHORUS (BEAKER) (test ajev=920) 3.9 mg/dL 2.3-4.7 [id number] 06:57:00 Test Item Value Reference Range Comments MAGNESIUM (BEAKER) (test jwam=145) 1.7 mg/dL 1.6-2.6 BASIC METABOLIC [id number] 06:57:00 Test Item Value Reference Range Comments SODIUM (BEAKER) (test 143 meq/L 136-145 rfxi=202) POTASSIUM (BEAKER) (test 4.7 meq/L 3.5-5.1 rnvh=290) CHLORIDE (BEAKER) (test 108 meq/L 98-107 fkcb=226) CO2 (BEAKER) (test 31 meq/L 22-29 vuxv=323) BLOOD UREA NITROGEN 27 mg/dL 7-21 (BEAKER) (test hwtn=441) CREATININE (BEAKER) (test 0.75 mg/dL 0.57-1.25 sziw=394) GLUCOSE RANDOM (BEAKER) 99 mg/dL 70-105 (test ibmc=175) CALCIUM (BEAKER) (test 8.3 mg/dL 8.4-10.2 zhrw=624) EGFR (BEAKER) (test 112 mL/min/1.73 sq m ESTIMATED GFR IS NOT xvnz=9113) ACCURATE CREATININE CLEARANCE IN PREDICTING GLOMERULAR FILTRATION RATE. ESTIMATED GFR IS NOT APPLICABLE FOR DIALYSIS PATIENTS. CBC W/PLT COUNT & AUTO [id number] 06:56:00 Test Item Value Reference Range Comments WHITE BLOOD CELL COUNT (BEAKER) (test fhip=479) 15.0 K/ L 3.5-10.5 RED BLOOD CELL COUNT (BEAKER) (test rrbr=752) 3.61 M/ L 3.93-5.22 HEMOGLOBIN (BEAKER) (test ozxc=984) 9.6 GM/DL 11.2-15.7 HEMATOCRIT (BEAKER) (test mejv=006) 32.4 % 34.1-44.9 MEAN CORPUSCULAR VOLUME (BEAKER) (test qcwv=343) 89.8 fL 79.4-94.8 MEAN CORPUSCULAR HEMOGLOBIN (BEAKER) (test 26.6 pg 25.6-32.2 oezp=063) MEAN CORPUSCULAR HEMOGLOBIN CONC (BEAKER) (test 29.6 GM/DL 32.2-35.5 xznj=100) RED CELL DISTRIBUTION WIDTH (BEAKER) (test 16.4 % 11.7-14.4 mnxy=393) PLATELET COUNT (BEAKER) (test rabh=865) 315 K/CU MM 150-450 MEAN PLATELET VOLUME (BEAKER) (test gvhx=192) 12.0 fL 9.4-12.3 NUCLEATED RED BLOOD CELLS (BEAKER) (test 0 /100 WBC 0-0 flfk=444) NEUTROPHILS RELATIVE PERCENT (BEAKER) (test 72 % uuzk=137) LYMPHOCYTES RELATIVE PERCENT (BEAKER) (test 18 % evii=005) MONOCYTES RELATIVE PERCENT (BEAKER) (test 8 % nwvr=740) EOSINOPHILS RELATIVE PERCENT (BEAKER) (test 2 % zylx=494) BASOPHILS RELATIVE PERCENT (BEAKER) (test 0 % vpms=547) NEUTROPHILS ABSOLUTE COUNT (BEAKER) (test 10.74 K/ L 1.56-6.13 tvuc=226) LYMPHOCYTES ABSOLUTE COUNT (BEAKER) (test 2.69 K/ L 1.18-3.74 lzxd=371) MONOCYTES ABSOLUTE COUNT (BEAKER) (test 1.14 K/ L 0.24-0.36 xdlk=903) EOSINOPHILS ABSOLUTE COUNT (BEAKER) (test 0.24 K/ L 0.04-0.36 qhgi=245) BASOPHILS ABSOLUTE COUNT (BEAKER) (test 0.02 K/ L 0.01-0.08 iehy=344) IMMATURE GRANULOCYTES-RELATIVE PERCENT (BEAKER) 1 % 0-1 (test kimd=7441) CALCIUM, [id number] 05:52:00 Test Item Value Reference Range Comments CALCIUM IONIZED (BEAKER) (test pxwa=380) 1.07 mmol/L 1.12-1.27 PH, BLOOD (BEAKER) (test mzsi=1711) 7.45 POCT-GLUCOSE [id number] 21:54:00 Test Item Value Reference Range Comments POC-GLUCOSE METER (BEAKER) 223 mg/dL 70-110 : TESTED AT [facility] [address] [facility] (test igje=8543) [facility], [address]: Triage Technician/Career Placement Services Counselor [phone] for LYNSEY RICARDO POCT-GLUCOSE [id number] 17:26:00 Test Item Value Reference Range Comments POC-GLUCOSE METER (BEAKER) 179 mg/dL 70-110 : TESTED AT [facility] [address] [place] [address] (test lknt=8202) [facility], [address]: Triage Technician/Career Placement Services Counselor [phone] for Fabio Yip CF RESPIRATORY [id number] 17:18:00 Test Item Value Reference Range Comments CULTURE (BEAKER) (test PSEUDOMONAS 2+ Pseudomonas owmy=4151) AERUGINOSA aeruginosa (MUCOID-PHENOTYPE) (Mucoid-phenotype) Amikacin (test code=1) Susceptible 0-16 , Resistant <0 or >16 Aztreonam (test Susceptible 0-8 , code=32) Resistant <0 or >8 Cefepime (test code=51) Susceptible 0-8 , Resistant <0 or >8 Ceftazidime (test Susceptible 0-8 , code=27) Resistant <0 or >8 Ciprofloxacin (test Susceptible 0-0.5 , code=7) Resistant <0 or >.5 Gentamicin (test Susceptible 0-4 , code=18) Resistant <0 or >4 Levofloxacin (test Susceptible 0-1 , code=22) Resistant <0 or >1 Meropenem (test Susceptible 0-2 , code=34) Resistant <0 or >2 Piperacillin (test Susceptible 0-16 , code=24) Resistant <0 or >16 Piperacillin + Susceptible 0-16 , Tazobactam (test Resistant <0 or >16 code=29) Tobramycin (test Susceptible 0-4 , code=25) Resistant <0 or >4 CULTURE (BEAKER) (test PSEUDOMONAS 2+ Pseudomonas fvuy=6197) AERUGINOSA aeruginosaof a second type Amikacin (test code=1) Susceptible 0-16 , Resistant <0 or >16 Aztreonam (test Susceptible 0-8 , code=32) Resistant <0 or >8 Cefepime (test code=51) Susceptible 0-8 , Resistant <0 or >8 Ceftazidime (test Susceptible 0-8 , code=27) Resistant <0 or >8 Ciprofloxacin (test Susceptible 0-0.5 , code=7) Resistant <0 or >.5 Gentamicin (test Susceptible 0-4 , code=18) Resistant <0 or >4 Levofloxacin (test Susceptible 0-1 , code=22) Resistant <0 or >1 Meropenem (test Susceptible 0-2 , code=34) Resistant <0 or >2 Piperacillin (test Susceptible 0-16 , code=24) Resistant <0 or >16 Piperacillin + Susceptible 0-16 , Tazobactam (test Resistant <0 or >16 code=29) Tobramycin (test Susceptible 0-4 , code=25) Resistant <0 or >4 CULTURE (BEAKER) (test PSEUDOMONAS 2+ Pseudomonas etwl=5798) AERUGINOSA aeruginosa (MUCOID-PHENOTYPE) (Mucoid-phenotype)of a third type Amikacin (test code=1) Susceptible 0-16 , Resistant <0 or >16 Aztreonam (test Susceptible 0-8 , code=32) Resistant <0 or >8 Cefepime (test code=51) Susceptible 0-8 , Resistant <0 or >8 Ceftazidime (test Susceptible 0-8 , code=27) Resistant <0 or >8 Ciprofloxacin (test Susceptible 0-0.5 , code=7) Resistant <0 or >.5 Gentamicin (test Susceptible 0-4 , code=18) Resistant <0 or >4 Levofloxacin (test Susceptible 0-1 , code=22) Resistant <0 or >1 Meropenem (test Susceptible 0-2 , code=34) Resistant <0 or >2 Piperacillin (test Susceptible 0-16 , code=24) Resistant <0 or >16 Piperacillin + Susceptible 0-16 , Tazobactam (test Resistant <0 or >16 code=29) Tobramycin (test Susceptible 0-4 , code=25) Resistant <0 or >4 POCT-GLUCOSE [id number] 12:52:00 Test Item Value Reference Range Comments POC-GLUCOSE METER (BEAKER) 147 mg/dL 70-110 : TESTED AT [facility] [address] [facility] (test qxim=8601) [facility], [address]: Triage Technician/Career Placement Services Counselor [phone] for Fabio Yip POCT-GLUCOSE [id number] 10:05:00 Test Item Value Reference Range Comments POC-GLUCOSE METER (BEAKER) 61 mg/dL 70-110 : Pt. refused rpt tst: TESTED (test tday=8877) AT [facility] [address] [facility], [address]: Triage Technician/Career Placement Services Counselor [id number] for Fabio Yip [id number] 07:55:00 Test Item Value Reference Range Comments MAGNESIUM (BEAKER) (test 1.6 mg/dL 1.6-2.6 Specimen slightly hemolyzed zhjq=405) [id number] 07:55:00 Test Item Value Reference Range Comments PHOSPHORUS (BEAKER) (test 3.9 mg/dL 2.3-4.7 Specimen slightly hemolyzed lfvj=011) BASIC METABOLIC [id number] 07:55:00 Test Item Value Reference Range Comments SODIUM (BEAKER) (test 137 meq/L 136-145 ssji=134) POTASSIUM (BEAKER) (test 4.5 meq/L 3.5-5.1 Specimen slightly qpzp=897) hemolyzed CHLORIDE (BEAKER) (test 105 meq/L 98-107 rmlw=504) CO2 (BEAKER) (test 27 meq/L 22-29 spgh=446) BLOOD UREA NITROGEN 35 mg/dL 7-21 (BEAKER) (test nplz=507) CREATININE (BEAKER) (test 0.74 mg/dL 0.57-1.25 Specimen slightly xblo=036) hemolyzed GLUCOSE RANDOM (BEAKER) 150 mg/dL 70-105 (test wzgm=656) CALCIUM (BEAKER) (test 8.6 mg/dL 8.4-10.2 zykx=335) EGFR (BEAKER) (test 114 mL/min/1.73 sq m ESTIMATED GFR IS NOT pzuy=4358) ACCURATE CREATININE CLEARANCE IN PREDICTING GLOMERULAR FILTRATION RATE. ESTIMATED GFR IS NOT APPLICABLE FOR DIALYSIS PATIENTS. CBC W/PLT COUNT & AUTO [id number] 06:43:00 Test Item Value Reference Range Comments WHITE BLOOD CELL COUNT (BEAKER) (test wnwu=427) 17.7 K/ L 3.5-10.5 RED BLOOD CELL COUNT (BEAKER) (test blag=749) 3.61 M/ L 3.93-5.22 HEMOGLOBIN (BEAKER) (test znlm=774) 9.7 GM/DL 11.2-15.7 HEMATOCRIT (BEAKER) (test gnek=099) 32.3 % 34.1-44.9 MEAN CORPUSCULAR VOLUME (BEAKER) (test vwqn=562) 89.5 fL 79.4-94.8 MEAN CORPUSCULAR HEMOGLOBIN (BEAKER) (test 26.9 pg 25.6-32.2 yjwv=707) MEAN CORPUSCULAR HEMOGLOBIN CONC (BEAKER) (test 30.0 GM/DL 32.2-35.5 qqyp=229) RED CELL DISTRIBUTION WIDTH (BEAKER) (test 15.9 % 11.7-14.4 xddb=636) PLATELET COUNT (BEAKER) (test doxn=691) 314 K/CU MM 150-450 MEAN PLATELET VOLUME (BEAKER) (test ikxp=071) 12.5 fL 9.4-12.3 NUCLEATED RED BLOOD CELLS (BEAKER) (test 0 /100 WBC 0-0 ztlc=796) NEUTROPHILS RELATIVE PERCENT (BEAKER) (test 79 % vywn=175) LYMPHOCYTES RELATIVE PERCENT (BEAKER) (test 12 % cesu=500) MONOCYTES RELATIVE PERCENT (BEAKER) (test 8 % sjvr=847) EOSINOPHILS RELATIVE PERCENT (BEAKER) (test 1 % gkgc=560) BASOPHILS RELATIVE PERCENT (BEAKER) (test 0 % raqv=871) NEUTROPHILS ABSOLUTE COUNT (BEAKER) (test 14.00 K/ L 1.56-6.13 reka=394) LYMPHOCYTES ABSOLUTE COUNT (BEAKER) (test 2.15 K/ L 1.18-3.74 jfyo=000) MONOCYTES ABSOLUTE COUNT (BEAKER) (test 1.32 K/ L 0.24-0.36 eqme=113) EOSINOPHILS ABSOLUTE COUNT (BEAKER) (test 0.10 K/ L 0.04-0.36 ybue=911) BASOPHILS ABSOLUTE COUNT (BEAKER) (test 0.03 K/ L 0.01-0.08 yknk=002) IMMATURE GRANULOCYTES-RELATIVE PERCENT (BEAKER) 1 % 0-1 (test xaka=3922) CALCIUM, [id number] 06:28:00 Test Item Value Reference Range Comments CALCIUM IONIZED (BEAKER) (test elyx=020) 1.05 mmol/L 1.12-1.27 PH, BLOOD (BEAKER) (test oyxl=6366) 7.31 POCT-GLUCOSE [id number] 21:46:00 Test Item Value Reference Range Comments POC-GLUCOSE METER (BEAKER) 356 mg/dL 70-110 : TESTED [address] (test gkhf=9084) [facility], [address]: Triage Technician/Career Placement Services Counselor [id number] for BRITTNEE BLACK POCT-GLUCOSE [id number] 17:55:00 Test Item Value Reference Range Comments POC-GLUCOSE METER (BEAKER) 300 mg/dL 70-110 : TESTED AT [address] (test wmla=5106) [facility], [address]: Triage Technician/Career Placement Services Counselor [id number] for JEANETTE HAMMOND POCT-GLUCOSE [id number] 12:19:00 Test Item Value Reference Range Comments POC-GLUCOSE METER (BEAKER) 176 mg/dL 70-110 : TESTED AT [address] (test ftcq=3191) [facility], [address]: Triage Technician/Career Placement Services Counselor [id number] for LAGUNAS, SALOMÓN POCT-GLUCOSE [id number] 07:45:00 Test Item Value Reference Range Comments POC-GLUCOSE METER (BEAKER) 198 mg/dL 70-110 : TESTED AT [address] (test jqsz=2837) [facility], [address]: Triage Technician/Career Placement Services Counselor [id number] for LAGUNAS, SALOMÓN CALCIUM, [id number] 07:36:00 Test Item Value Reference Range Comments CALCIUM IONIZED (BEAKER) (test unlu=131) 1.16 mmol/L 1.12-1.27 PH, BLOOD (BEAKER) (test uabw=2137) 7.31 CBC W/PLT COUNT & AUTO [id number] 04:03:00 Test Item Value Reference Range Comments WHITE BLOOD CELL COUNT (BEAKER) (test nwgl=586) 16.5 K/ L 3.5-10.5 RED BLOOD CELL COUNT (BEAKER) (test fnxg=658) 3.90 M/ L 3.93-5.22 HEMOGLOBIN (BEAKER) (test paem=780) 10.5 GM/DL 11.2-15.7 HEMATOCRIT (BEAKER) (test cpwd=514) 34.1 % 34.1-44.9 MEAN CORPUSCULAR VOLUME (BEAKER) (test olad=126) 87.4 fL 79.4-94.8 MEAN CORPUSCULAR HEMOGLOBIN (BEAKER) (test 26.9 pg 25.6-32.2 oqud=111) MEAN CORPUSCULAR HEMOGLOBIN CONC (BEAKER) (test 30.8 GM/DL 32.2-35.5 cbup=102) RED CELL DISTRIBUTION WIDTH (BEAKER) (test 15.9 % 11.7-14.4 lmcx=813) PLATELET COUNT (BEAKER) (test xers=606) 331 K/CU MM 150-450 MEAN PLATELET VOLUME (BEAKER) (test csiq=433) 11.8 fL 9.4-12.3 NUCLEATED RED BLOOD CELLS (BEAKER) (test 0 /100 WBC 0-0 vzwp=612) NEUTROPHILS RELATIVE PERCENT (BEAKER) (test 79 % wisl=509) LYMPHOCYTES RELATIVE PERCENT (BEAKER) (test 12 % huop=383) MONOCYTES RELATIVE PERCENT (BEAKER) (test 8 % ehbj=388) EOSINOPHILS RELATIVE PERCENT (BEAKER) (test 0 % ygup=588) BASOPHILS RELATIVE PERCENT (BEAKER) (test 0 % lion=565) NEUTROPHILS ABSOLUTE COUNT (BEAKER) (test 13.06 K/ L 1.56-6.13 aqqz=706) LYMPHOCYTES ABSOLUTE COUNT (BEAKER) (test 1.91 K/ L 1.18-3.74 vrun=975) MONOCYTES ABSOLUTE COUNT (BEAKER) (test 1.34 K/ L 0.24-0.36 xkpb=769) EOSINOPHILS ABSOLUTE COUNT (BEAKER) (test 0.07 K/ L 0.04-0.36 umeu=098) BASOPHILS ABSOLUTE COUNT (BEAKER) (test 0.03 K/ L 0.01-0.08 qwlj=223) IMMATURE GRANULOCYTES-RELATIVE PERCENT (BEAKER) 1 % 0-1 (test vhde=5804) [id number] 03:49:00 Test Item Value Reference Range Comments PHOSPHORUS (BEAKER) (test uzlv=440) 3.8 mg/dL 2.3-4.7 [id number] 03:49:00 Test Item Value Reference Range Comments MAGNESIUM (BEAKER) (test kowp=898) 2.0 mg/dL 1.6-2.6 BASIC METABOLIC [id number] 03:49:00 Test Item Value Reference Range Comments SODIUM (BEAKER) (test 138 meq/L 136-145 dbop=083) POTASSIUM (BEAKER) (test 4.4 meq/L 3.5-5.1 olfy=113) CHLORIDE (BEAKER) (test 106 meq/L 98-107 pspt=285) CO2 (BEAKER) (test 26 meq/L 22-29 ainn=968) BLOOD UREA NITROGEN 26 mg/dL 7-21 (BEAKER) (test stjy=030) CREATININE (BEAKER) (test 0.81 mg/dL 0.57-1.25 riaa=510) GLUCOSE RANDOM (BEAKER) 153 mg/dL 70-105 (test jotq=671) CALCIUM (BEAKER) (test 8.4 mg/dL 8.4-10.2 sdnv=402) EGFR (BEAKER) (test 103 mL/min/1.73 sq m ESTIMATED GFR IS NOT sbag=9266) ACCURATE CREATININE CLEARANCE IN PREDICTING GLOMERULAR FILTRATION RATE. ESTIMATED GFR IS NOT APPLICABLE FOR DIALYSIS PATIENTS. POCT-GLUCOSE [id number] 22:24:00 Test Item Value Reference Range Comments POC-GLUCOSE METER (BEAKER) 401 mg/dL 70-110 : Notified RN/MD: TESTED AT (test fpwm=3973) [address], [address]: Triage Technician/Career Placement Services Counselor [phone] for GRIFFIN ARIAS BLOOD [id number] 19:01:00 Test Item Value Reference Range Comments CULTURE (BEAKER) (test pgha=6626) No growth in 5 days BLOOD [id number] 19:01:00 Test Item Value Reference Range Comments CULTURE (BEAKER) (test fwnk=0563) No growth in 5 days POCT-GLUCOSE [id number] 17:12:00 Test Item Value Reference Range Comments POC-GLUCOSE METER (BEAKER) 381 mg/dL 70-110 : TESTED AT [address] (test rxbd=4030) [place], [address]: Triage Technician/Career Placement Services Counselor [phone] for HALIMA SARAH POCT-GLUCOSE [id number] 12:19:00 Test Item Value Reference Range Comments POC-GLUCOSE METER (BEAKER) 129 mg/dL 70-110 : TESTED AT [facility] [address] [facility] (test ayyd=3130) [facility], [address]: Triage Technician/Career Placement Services Counselor [phone] for HALIMA SARAH POCT-GLUCOSE [id number] 08:14:00 Test Item Value Reference Range Comments POC-GLUCOSE METER (BEAKER) 72 mg/dL 70-110 : TESTED AT [facility] [address] [facility] (test lxym=8623) [facility], [address]: Triage Technician/Career Placement Services Counselor [phone] for HALIMA SARAH CALCIUM, [id number] 07:16:00 Test Item Value Reference Range Comments CALCIUM IONIZED (BEAKER) (test avul=208) 1.18 mmol/L 1.12-1.27 PH, BLOOD (BEAKER) (test attj=6237) 7.35 [id number] 05:01:00 Test Item Value Reference Range Comments PHOSPHORUS (BEAKER) (test zlod=324) 3.0 mg/dL 2.3-4.7 [id number] 05:01:00 Test Item Value Reference Range Comments MAGNESIUM (BEAKER) (test npdc=142) 1.4 mg/dL 1.6-2.6 BASIC METABOLIC [id number] 05:01:00 Test Item Value Reference Range Comments SODIUM (BEAKER) (test 139 meq/L 136-145 aijv=469) POTASSIUM (BEAKER) (test 3.7 meq/L 3.5-5.1 qvek=350) CHLORIDE (BEAKER) (test 107 meq/L 98-107 odfm=666) CO2 (BEAKER) (test 24 meq/L 22-29 njin=401) BLOOD UREA NITROGEN 17 mg/dL 7-21 (BEAKER) (test wwxh=339) CREATININE (BEAKER) (test 0.75 mg/dL 0.57-1.25 gqsy=896) GLUCOSE RANDOM (BEAKER) 249 mg/dL 70-105 (test hhmb=596) CALCIUM (BEAKER) (test 8.4 mg/dL 8.4-10.2 lleu=949) EGFR (BEAKER) (test 112 mL/min/1.73 sq m ESTIMATED GFR IS NOT rrar=5496) ACCURATE CREATININE CLEARANCE IN PREDICTING GLOMERULAR FILTRATION RATE. ESTIMATED GFR IS NOT APPLICABLE FOR DIALYSIS PATIENTS. CBC W/PLT COUNT & AUTO [id number] 04:54:00 Test Item Value Reference Range Comments WHITE BLOOD CELL COUNT (BEAKER) (test ubdg=013) 13.2 K/ L 3.5-10.5 RED BLOOD CELL COUNT (BEAKER) (test fzjx=875) 3.85 M/ L 3.93-5.22 HEMOGLOBIN (BEAKER) (test htjs=771) 10.2 GM/DL 11.2-15.7 HEMATOCRIT (BEAKER) (test matl=432) 33.5 % 34.1-44.9 MEAN CORPUSCULAR VOLUME (BEAKER) (test txmt=014) 87.0 fL 79.4-94.8 MEAN CORPUSCULAR HEMOGLOBIN (BEAKER) (test 26.5 pg 25.6-32.2 zaok=893) MEAN CORPUSCULAR HEMOGLOBIN CONC (BEAKER) (test 30.4 GM/DL 32.2-35.5 yabl=600) RED CELL DISTRIBUTION WIDTH (BEAKER) (test 15.6 % 11.7-14.4 vwbd=919) PLATELET COUNT (BEAKER) (test nyvv=770) 314 K/CU MM 150-450 MEAN PLATELET VOLUME (BEAKER) (test tlpz=385) 11.6 fL 9.4-12.3 NUCLEATED RED BLOOD CELLS (BEAKER) (test 0 /100 WBC 0-0 nsza=029) NEUTROPHILS RELATIVE PERCENT (BEAKER) (test 73 % wbza=038) LYMPHOCYTES RELATIVE PERCENT (BEAKER) (test 16 % mkap=329) MONOCYTES RELATIVE PERCENT (BEAKER) (test 10 % tlrk=850) EOSINOPHILS RELATIVE PERCENT (BEAKER) (test 1 % ysur=297) BASOPHILS RELATIVE PERCENT (BEAKER) (test 0 % ggog=142) NEUTROPHILS ABSOLUTE COUNT (BEAKER) (test 9.61 K/ L 1.56-6.13 vayg=727) LYMPHOCYTES ABSOLUTE COUNT (BEAKER) (test 2.09 K/ L 1.18-3.74 cdxf=430) MONOCYTES ABSOLUTE COUNT (BEAKER) (test 1.28 K/ L 0.24-0.36 qyxl=684) EOSINOPHILS ABSOLUTE COUNT (BEAKER) (test 0.08 K/ L 0.04-0.36 ufuf=950) BASOPHILS ABSOLUTE COUNT (BEAKER) (test 0.03 K/ L 0.01-0.08 pqpt=761) IMMATURE GRANULOCYTES-RELATIVE PERCENT (BEAKER) 1 % 0-1 (test bjtx=5241) POCT-GLUCOSE [id number] 22:39:00 Test Item Value Reference Range Comments POC-GLUCOSE METER (BEAKER) 434 mg/dL 70-110 : Notified RN/MD: TESTED AT (test xern=1017) [address], [address]: Triage Technician/Career Placement Services Counselor [phone] for GRIFFIN ARIAS POCT-GLUCOSE [id number] 16:58:00 Test Item Value Reference Range Comments POC-GLUCOSE METER (BEAKER) 486 mg/dL 70-110 : Notified RN/MD: TESTED AT (test ukce=9234) [address], [address]: Triage Technician/Career Placement Services Counselor [phone] for BRADEN SARAHIAN POCT-GLUCOSE [id number] 11:36:00 Test Item Value Reference Range Comments POC-GLUCOSE METER (BEAKER) 275 mg/dL 70-110 : TESTED AT [address] (test kwyp=9066) [facility], [address]: Triage Technician/Career Placement Services Counselor [phone] for SARAH, HALIMA POCT-GLUCOSE [id number] 07:35:00 Test Item Value Reference Range Comments POC-GLUCOSE METER (BEAKER) 276 mg/dL 70-110 : TESTED AT [address] (test lxev=0195) [facility], [address]: Triage Technician/Career Placement Services Counselor [phone] for SARAH, HALIMA BASIC METABOLIC [id number] 06:03:00 Test Item Value Reference Range Comments SODIUM (BEAKER) (test 138 meq/L 136-145 ysqi=819) POTASSIUM (BEAKER) (test 4.3 meq/L 3.5-5.1 Specimen slightly lkna=590) hemolyzed CHLORIDE (BEAKER) (test 107 meq/L 98-107 cnzv=239) CO2 (BEAKER) (test 28 meq/L 22-29 mmlr=104) BLOOD UREA NITROGEN 25 mg/dL 7-21 (BEAKER) (test qqlj=082) CREATININE (BEAKER) (test 0.95 mg/dL 0.57-1.25 Specimen slightly sjlx=052) hemolyzed GLUCOSE RANDOM (BEAKER) 393 mg/dL 70-105 (test hjxo=472) CALCIUM (BEAKER) (test 8.4 mg/dL 8.4-10.2 kwhj=447) EGFR (BEAKER) (test 86 mL/min/1.73 sq m ESTIMATED GFR IS NOT yclh=2010) ACCURATE CREATININE CLEARANCE IN PREDICTING GLOMERULAR FILTRATION RATE. ESTIMATED GFR IS NOT APPLICABLE FOR DIALYSIS PATIENTS. POCT-GLUCOSE [id number] 22:00:00 Test Item Value Reference Range Comments POC-GLUCOSE METER (BEAKER) 251 mg/dL 70-110 : TESTED AT [facility] [address] [facility] (test ylqa=1471) [facility], [address]: Triage Technician/Career Placement Services Counselor [phone] for GRIFFIN ARIAS RAD, RIBS, UNILATERAL, MIN 2 VIEWS, [id number] 19:15:00Reason for exam:-&gt ;Chest pain with coughFINAL REPORT Right RIBS, two views History: Cough and chest pain Comparison: None Findings:No fracture, dislocation , or subluxation. No additional significant bone or joint spaceabnormality. The right lung is clear. A right-sided Port-A-Cath terminates in the superior vena cava. Impression:No radiographically appreciable right rib abnormality. Signed: Dane Campo [facility] Verified Date/Time: 09/01/2019 19:15:04 Reading Location: [facility] Mammo Reading Room RAD, RIBS, UNILATERAL, MIN 2 VIEWS, [id number] 18 :32:00Reason for exam:->Chest pain with coughFINAL REPORT Left RIBS, two views History: Left chest wall pain Comparison: None Findings:No fracture, dislocation, or subluxation. No additional significant bone or joint space abnormality. Incidental note is made of a small left pleural effusion. There is scarring at the left upper lobe. Impression: 1. No radiographically appreciable left rib abnormality.2. Small left pleuraleffusion. Signed: Dane Campo MDReport Verified Date/Time: 2018 18:32:18 Reading Location: [facility] Mammo Reading Room POCT-GLUCOSE [id number] 18:20:00 Test Item Value Reference Range Comments POC-GLUCOSE METER (BEAKER) 182 mg/dL 70-110 : TESTED AT [address] (test xfuz=6326) [facility], [address]: Triage Technician/Career Placement Services Counselor [phone] for BRADEN SARAHIAN POCT-GLUCOSE [id number] 12:45:00 Test Item Value Reference Range Comments POC-GLUCOSE METER (BEAKER) 210 mg/dL 70-110 : TESTED AT [address] (test xtnn=1821) [facility], [address]: Triage Technician/Career Placement Services Counselor [phone] for SARAHVIKASHALIMA POCT-GLUCOSE [id number] 08:24:00 Test Item Value Reference Range Comments POC-GLUCOSE METER (BEAKER) 109 mg/dL 70-110 : TESTED AT [address] (test pgbx=8499) [facility], [address]: Triage Technician/Career Placement Services Counselor [phone] for HALIMA SARAH BASIC METABOLIC [id number] 06:25:00 Test Item Value Reference Range Comments SODIUM (BEAKER) (test 138 meq/L 136-145 tmwd=637) POTASSIUM (BEAKER) (test 4.3 meq/L 3.5-5.1 Specimen slightly xtkb=342) hemolyzed CHLORIDE (BEAKER) (test 108 meq/L 98-107 osxj=812) CO2 (BEAKER) (test 26 meq/L 22-29 sppz=033) BLOOD UREA NITROGEN 19 mg/dL 7-21 (BEAKER) (test bvju=450) CREATININE (BEAKER) (test 0.73 mg/dL 0.57-1.25 Specimen slightly ecxb=552) hemolyzed GLUCOSE RANDOM (BEAKER) 162 mg/dL 70-105 (test dwre=983) CALCIUM (BEAKER) (test 7.7 mg/dL 8.4-10.2 wubo=670) EGFR (BEAKER) (test 116 mL/min/1.73 sq m ESTIMATED GFR IS NOT ojkv=2259) ACCURATE CREATININE CLEARANCE IN PREDICTING GLOMERULAR FILTRATION RATE. ESTIMATED GFR IS NOT APPLICABLE FOR DIALYSIS PATIENTS. SPIN/CONCENTRATION [id number] 01:54:00 Test Item Value Reference Range Comments CONCENTRATION CHARGED (BEAKER) (test gmsm=0385) Done POCT-GLUCOSE [id number] 21:20:00 Test Item Value Reference Range Comments POC-GLUCOSE METER (BEAKER) 303 mg/dL 70-110 : Notified RN/MD: TESTED AT (test empz=6351) [address], [address]: Triage Technician/Career Placement Services Counselor [phone] for SHERI VALENCIA POCT-GLUCOSE [id number] 17:55:00 Test Item Value Reference Range Comments POC-GLUCOSE METER (BEAKER) 353 mg/dL 70-110 : TESTED AT [address] (test uzyu=4124) [facility], [address]: Triage Technician/Career Placement Services Counselor [phone] for DANNY HUGHES POCT-GLUCOSE [id number] 11:26:00 Test Item Value Reference Range Comments POC-GLUCOSE METER (BEAKER) 298 mg/dL 70-110 : TESTED AT [address] (test wknk=4649) [facility], [address]: Triage Technician/Career Placement Services Counselor [phone] for DIMITRY KIM POCT-GLUCOSE [id number] 08:53:00 Test Item Value Reference Range Comments POC-GLUCOSE METER (BEAKER) 228 mg/dL 70-110 : TESTED AT [address] (test qgax=9413) [facility], [address]: Triage Technician/Career Placement Services Counselor [phone] for DIMITRY KIM [id number] 06:48:00 Test Item Value Reference Range Comments BLOOD UREA NITROGEN (BEAKER) (test cigo=286) 21 mg/dL 7-21 [id number] 06:48:00 Test Item Value Reference Range Comments CREATININE (BEAKER) (test 0.99 mg/dL 0.57-1.25 tbmx=790) EGFR (BEAKER) (test 82 mL/min/1.73 sq m ESTIMATED GFR IS NOT evgs=7122) ACCURATE CREATININE CLEARANCE IN PREDICTING GLOMERULAR FILTRATION RATE. ESTIMATED GFR IS NOT APPLICABLE FOR DIALYSIS PATIENTS. POCT-GLUCOSE [id number] 23:26:00 Test Item Value Reference Range Comments POC-GLUCOSE METER (BEAKER) 483 mg/dL 70-110 : TESTED AT [address] (test nvtl=6173) [facility], [address]: Triage Technician/Career Placement Services Counselor [phone] for BRITTNEE BLACK POCT-GLUCOSE [id number] 16:33:00 Test Item Value Reference Range Comments POC-GLUCOSE METER (BEAKER) 159 mg/dL 70-110 : TESTED AT [address] (test odhr=8955) [facility], [address]: Triage Technician/Career Placement Services Counselor [phone] for DIMITRY KIM POCT-GLUCOSE [id number] 12:32:00 Test Item Value Reference Range Comments POC-GLUCOSE METER (BEAKER) 230 mg/dL 70-110 : TESTED AT [address] (test gxcl=6503) [facility], [address]: Triage Technician/Career Placement Services Counselor [phone] for DIMITRY KIM RESPIRATORY PANEL [id number] 08:49:00 Test Item Value Reference Range Comments HUMAN METAPNEUMOVIRUS (BEAKER) (test Not detected Not detected, Equivocal acyo=6401) RHINOVIRUS (BEAKER) (test awxt=7360) Not detected Not detected, Equivocal INFLUENZA A (BEAKER) (test ubfb=3638) Not detected Not detected, Equivocal INFLUENZA A (NO SUBTYPE) (test kzfb=4299) INFLUENZA A SUBTYPE H1 (BEAKER) (test nrua=3132) INFLUENZA A SUBTYPE H3 (BEAKER) (test lcmb=8846) INFLUENZA A SUBTYPE H1-2009 (BEAKER) (test dkux=0034) INFLUENZA B (BEAKER) (test pcvu=5135) Not detected Not detected, Equivocal RESPIRATORY SYNCYTIAL VIRUS (BEAKER) Not detected Not detected, Equivocal (test jbhs=8925) PARAINFLUENZA VIRUS 1 (BEAKER) (test Not detected Not detected, Equivocal xzwd=2514) PARAINFLUENZA VIRUS 2 (BEAKER) (test Not detected Not detected, Equivocal cduf=7432) PARAINFLUENZA VIRUS 3 (BEAKER) (test Not detected Not detected, Equivocal doxa=7238) PARAINFLUENZA VIRUS 4 (BEAKER) (test Not detected Not detected, Equivocal cvlg=7832) ADENOVIRUS (BEAKER) (test qfgk=4905) Not detected Not detected, Equivocal CORONAVIRUS 229E (BEAKER) (test Not detected Not detected, Equivocal hnrk=7107) CORONAVIRUS HKU1 (BEAKER) (test Not detected Not detected, Equivocal bcbv=4058) CORONAVIRUS NL63 (BEAKER) (test Not detected Not detected, Equivocal banj=5891) CORONAVIRUS OC43 (BEAKER) (test Not detected Not detected, Equivocal dbob=7606) BORDETELLA PERTUSSIS (BEAKER) (test Not detected Not detected, Equivocal nlyr=5817) CHLAMYDOPHILA PNEUMONIAE (BEAKER) (test Not detected Not detected, Equivocal tjao=3780) MYCOPLASMA PNEUMONIAE (BEAKER) (test Not detected Not detected, Equivocal vicr=2517) Other viruses and bacteria not targeted by this PCR panel cannot be excluded; therefore clinical correlation and follow up of serology, culture results, and other molecular studies is required. The results are not intended to be used as the sole means for clinical diagnosis or patient management decisions. This sample was tested at the [facility] Molecular Diagnostics Laboratory using the [employer]comArray Respiratory Panel. It is FDA cleared and has been verified and approved by the [facility] Molecular Diagnostics Laboratory for clinical use on nasopharyngeal swab specimens.The performance of the FilmArrayRP has not been established in individuals who received influenza vaccine. Recent administration ofa nasal influenza vaccine may cause false positive results for Influenza A and/orInfluenza B.POCT-GLUCOSE [id number] 08:25:00 Test Item Value Reference Range Comments POC-GLUCOSE METER (Band Metrics) 173 mg/dL 70-110 : TESTED AT [facility] [address] (test lzjr=0182) [facility], [address]: Triage Technician/Career Placement Services Counselor [phone] for DIMITRY KIM HEMOGLOBIN [id number] 07:59:00 Test Item Value Reference Range Comments HEMOGLOBIN A1C (BEAKER) (test jxzp=322) 11.3 % 4.3-6.1 [id number] 04:54:00 Test Item Value Reference Range Comments BLOOD UREA NITROGEN (BEAKER) (test pgdc=853) 11 mg/dL 7-21 [id number] 04:54:00 Test Item Value Reference Range Comments CREATININE (BEAKER) (test 0.80 mg/dL 0.57-1.25 fajf=741) EGFR (BEAKER) (test 104 mL/min/1.73 sq m ESTIMATED GFR IS NOT akny=5139) ACCURATE CREATININE CLEARANCE IN PREDICTING GLOMERULAR FILTRATION RATE. ESTIMATED GFR IS NOT APPLICABLE FOR DIALYSIS PATIENTS. POCT-GLUCOSE [id number] 22:07:00 Test Item Value Reference Range Comments POC-GLUCOSE METER (BEAKER) 191 mg/dL 70-110 : TESTED AT [facility] [address] (test cedp=1932) [facility], [address]: Triage Technician/Career Placement Services Counselor [phone] for GRIFFIN ARIAS RESPIRATORY PANEL [id number] 20:00:00 Test Item Value Reference Range Comments HUMAN METAPNEUMOVIRUS (BEAKER) (test Not detected Not detected, Equivocal giwd=0624) RHINOVIRUS (BEAKER) (test auid=0853) Not detected Not detected, Equivocal INFLUENZA A (BEAKER) (test kbno=3778) Not detected Not detected, Equivocal INFLUENZA A (NO SUBTYPE) (test lcot=9672) INFLUENZA A SUBTYPE H1 (BEAKER) (test mack=4436) INFLUENZA A SUBTYPE H3 (BEAKER) (test jejf=1227) INFLUENZA A SUBTYPE H1-2009 (BEAKER) (test qpqx=8015) INFLUENZA B (BEAKER) (test duer=5815) Not detected Not detected, Equivocal RESPIRATORY SYNCYTIAL VIRUS (BEAKER) Not detected Not detected, Equivocal (test rltx=3143) PARAINFLUENZA VIRUS 1 (BEAKER) (test Not detected Not detected, Equivocal uygl=1913) PARAINFLUENZA VIRUS 2 (BEAKER) (test Not detected Not detected, Equivocal rzsi=9520) PARAINFLUENZA VIRUS 3 (BEAKER) (test Not detected Not detected, Equivocal bmnd=8406) PARAINFLUENZA VIRUS 4 (BEAKER) (test Not detected Not detected, Equivocal jtfg=0735) ADENOVIRUS (BEAKER) (test jnuz=5937) Not detected Not detected, Equivocal CORONAVIRUS 229E (BEAKER) (test Not detected Not detected, Equivocal rqbp=7448) CORONAVIRUS HKU1 (BEAKER) (test Not detected Not detected, Equivocal apoj=5537) CORONAVIRUS NL63 (BEAKER) (test Not detected Not detected, Equivocal atsn=0192) CORONAVIRUS OC43 (BEAKER) (test Not detected Not detected, Equivocal xgrj=5601) BORDETELLA PERTUSSIS (BEAKER) (test Not detected Not detected, Equivocal eech=5754) CHLAMYDOPHILA PNEUMONIAE (BEAKER) (test Not detected Not detected, Equivocal qnxc=1934) MYCOPLASMA PNEUMONIAE (BEAKER) (test Not detected Not detected, Equivocal gfzs=4417) Other viruses and bacteria not targeted by this PCR panel cannot be excluded; therefore clinical correlation and follow up of serology, culture results, and other molecular studies is required. The results are not intended to be used as the sole means for clinical diagnosis or patient management decisions. This sample was tested at the [facility] Molecular Diagnostics Laboratory using the [employer] FilmArray Respiratory Panel. It is FDA cleared and has been verified and approved by the [facility] Molecular Diagnostics Laboratory for clinical use on nasopharyngeal swab specimens.The performance of the FilmArrayRP has not been established in individuals who received influenza vaccine. Recent administration ofa nasal influenza vaccine may cause false positive results for Influenza A and/orInfluenza B.POCT-GLUCOSE [id number] 19:56:00 Test Item Value Reference Range Comments POC-GLUCOSE METER (BEAKER) 60 mg/dL 70-110 : Notified RN/MD: TESTED AT (test gghc=6539) [facility] [address] [facility], [address]: Triage Technician/Career Placement Services Counselor [phone] for ALFIE MCPHERSON RAD, CHEST, 2 [id number] 19:26:00Reason for exam:->SHORTNESS OF BREATHReason for exam:->COUGHFINAL REPORT PA and Lateral views of the chest dated 08/29/2019 COMPARISON: April 12, 2019 Clinical information: SHORTNESS OF BREATHCOUGH Comment: Heart is normal in size. Pulmonary vasculature is indistinct. Interstitial disease is seen bilaterally suggestive of chronic changes. No pleural effusion or pneumothorax is seen. Port -A-Cath remains in place. IMPRESSION: No interval change. Signed: Alberto Kohler Verified Date/Time: 08/29/2019 19:26:24 Reading Location: [facility] [id number] Consult Reading Room [id number] 18:31:00 Test Item Value Reference Range Comments MAGNESIUM (BEAKER) (test rkib=088) 1.8 mg/dL 1.6-2.6 [id number] 18:31:00 Test Item Value Reference Range Comments PHOSPHORUS (BEAKER) (test gloo=940) 3.0 mg/dL 2.3-4.7 GAMMA GLUTAMYL TRANSFERASE (GGT)2019-08-29 18:31:00 Test Item Value Reference Range Comments GAMMA GLUTAMYL TRANSFERASE (BEAKER) (test fria=699) 54 U/L 9-64 RAPID INFLUENZA A&B [id number] 17:02:00 Test Item Value Reference Range Comments RAPID INFLUENZA A AG (BEAKER) (test Negative Negative, Inconclusive tzen=2186) RAPID INFLUENZA B AG (BEAKER) (test Negative Negative, Inconclusive tyif=8227) HEPATIC FUNCTION [id number] 16:49:00 Test Item Value Reference Range Comments TOTAL PROTEIN (BEAKER) (test lbkk=089) 5.9 gm/dL 6.0-8.3 ALBUMIN (BEAKER) (test jwsy=2098) 2.2 g/dL 3.5-5.0 BILIRUBIN TOTAL (BEAKER) (test enbl=018) 0.1 mg/dL 0.2-1.2 BILIRUBIN DIRECT (BEAKER) (test jcfb=022) 0.1 mg/dL 0.1-0.5 ALKALINE PHOSPHATASE (BEAKER) (test iltn=897) 122 U/L 40-150 AST (SGOT) (BEAKER) (test xpzg=252) 14 U/L 5-34 ALT (SGPT) (BEAKER) (test uavl=553) 10 U/L 6-55 BASIC METABOLIC [id number] 16:49:00 Test Item Value Reference Range Comments SODIUM (BEAKER) (test 142 meq/L 136-145 dclw=942) POTASSIUM (BEAKER) (test 3.7 meq/L 3.5-5.1 fdtq=891) CHLORIDE (BEAKER) (test 108 meq/L 98-107 vrcx=395) CO2 (BEAKER) (test 31 meq/L 22-29 gzjm=436) BLOOD UREA NITROGEN 9 mg/dL 7-21 (BEAKER) (test qslf=991) CREATININE (BEAKER) (test 0.69 mg/dL 0.57-1.25 yqgv=385) GLUCOSE RANDOM (BEAKER) 129 mg/dL 70-105 (test dvio=196) CALCIUM (BEAKER) (test 8.1 mg/dL 8.4-10.2 crzi=436) EGFR (BEAKER) (test 124 mL/min/1.73 sq m ESTIMATED GFR IS NOT puhd=1065) ACCURATE CREATININE CLEARANCE IN PREDICTING GLOMERULAR FILTRATION RATE. ESTIMATED GFR IS NOT APPLICABLE FOR DIALYSIS PATIENTS. CBC W/PLT COUNT & AUTO [id number] 16:27:00 Test Item Value Reference Range Comments WHITE BLOOD CELL COUNT (BEAKER) (test zwdl=543) 11.4 K/ L 3.5-10.5 RED BLOOD CELL COUNT (BEAKER) (test dzjb=434) 4.14 M/ L 3.93-5.22 HEMOGLOBIN (BEAKER) (test acsv=861) 11.0 GM/DL 11.2-15.7 HEMATOCRIT (BEAKER) (test xght=606) 36.1 % 34.1-44.9 MEAN CORPUSCULAR VOLUME (BEAKER) (test zepe=237) 87.2 fL 79.4-94.8 MEAN CORPUSCULAR HEMOGLOBIN (BEAKER) (test 26.6 pg 25.6-32.2 jkdi=745) MEAN CORPUSCULAR HEMOGLOBIN CONC (BEAKER) (test 30.5 GM/DL 32.2-35.5 uzqa=672) RED CELL DISTRIBUTION WIDTH (BEAKER) (test 15.5 % 11.7-14.4 cgcf=025) PLATELET COUNT (BEAKER) (test mjyc=247) 327 K/CU MM 150-450 MEAN PLATELET VOLUME (BEAKER) (test bjxg=136) 12.3 fL 9.4-12.3 NUCLEATED RED BLOOD CELLS (BEAKER) (test 0 /100 WBC 0-0 rsgt=681) NEUTROPHILS RELATIVE PERCENT (BEAKER) (test 63 % vavd=037) LYMPHOCYTES RELATIVE PERCENT (BEAKER) (test 22 % dovb=577) MONOCYTES RELATIVE PERCENT (BEAKER) (test 10 % rwrd=935) EOSINOPHILS RELATIVE PERCENT (BEAKER) (test 4 % ludn=292) BASOPHILS RELATIVE PERCENT (BEAKER) (test 0 % rakk=417) NEUTROPHILS ABSOLUTE COUNT (BEAKER) (test 7.16 K/ L 1.56-6.13 qqzw=080) LYMPHOCYTES ABSOLUTE COUNT (BEAKER) (test 2.46 K/ L 1.18-3.74 glkm=477) MONOCYTES ABSOLUTE COUNT (BEAKER) (test 1.15 K/ L 0.24-0.36 aabr=231) EOSINOPHILS ABSOLUTE COUNT (BEAKER) (test 0.50 K/ L 0.04-0.36 avcc=990) BASOPHILS ABSOLUTE COUNT (BEAKER) (test 0.05 K/ L 0.01-0.08 sgnj=938) IMMATURE GRANULOCYTES-RELATIVE PERCENT (BEAKER) 0 % 0-1 (test amsg=7536) RAD, BONE DENSITY [id number] 09:57:00Reason for Exam:->OSTEOPOROSIS SCREENINGFINAL REPORT Exam: Bone mineral density study. History: Osteopenia. Comparison: None Discussion: Evaluation of the left hip, and lumbar spine was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 Reference Range Comments POC-GLUCOSE METER (BEAKER) 69 mg/dL 70-110 Notified JORDON STAPLETON/TESTED AT [facility] (test itws=3713) [address] [place] [address] BASIC METABOLIC [id number] 08:30:00 Test Item Value Reference Range Comments SODIUM (BEAKER) (test 142 meq/L 136-145 bdtx=825) POTASSIUM (BEAKER) (test 4.0 meq/L 3.5-5.1 rbav=630) CHLORIDE (BEAKER) (test 91 meq/L 98-107 bxxo=866) CO2 (BEAKER) (test 42 meq/L 22-29 mrud=427) BLOOD UREA NITROGEN 22 mg/dL 7-21 (BEAKER) (test ugqn=250) CREATININE (BEAKER) (test 0.70 mg/dL 0.57-1.25 wtur=407) GLUCOSE RANDOM (BEAKER) 137 mg/dL 70-105 (test phng=562) CALCIUM (BEAKER) (test 8.4 mg/dL 8.4-10.2 bxnm=438) EGFR (BEAKER) (test 123 mL/min/1.73 sq m ESTIMATED GFR IS NOT yzxc=4974) ACCURATE CREATININE CLEARANCE IN PREDICTING GLOMERULAR FILTRATION RATE. ESTIMATED GFR IS NOT APPLICABLE FOR DIALYSIS PATIENTS. CBC W/PLT COUNT & AUTO [id number] 07:20:00 Test Item Value Reference Range Comments WHITE BLOOD CELL COUNT (BEAKER) (test opcu=089) 17.0 K/ L 3.5-10.5 RED BLOOD CELL COUNT (BEAKER) (test oguq=863) 3.43 M/ L 3.93-5.22 HEMOGLOBIN (BEAKER) (test vmcq=430) 8.9 GM/DL 11.2-15.7 HEMATOCRIT (BEAKER) (test msaa=862) 30.3 % 34.1-44.9 MEAN CORPUSCULAR VOLUME (BEAKER) (test urgs=304) 88.3 fL 79.4-94.8 MEAN CORPUSCULAR HEMOGLOBIN (BEAKER) (test 25.9 pg 25.6-32.2 jslf=061) MEAN CORPUSCULAR HEMOGLOBIN CONC (BEAKER) (test 29.4 GM/DL 32.2-35.5 yelf=675) RED CELL DISTRIBUTION WIDTH (BEAKER) (test 17.6 % 11.7-14.4 qkmd=575) PLATELET COUNT (BEAKER) (test oceo=597) 490 K/CU MM 150-450 MEAN PLATELET VOLUME (BEAKER) (test iylz=488) 10.4 fL 9.4-12.3 NUCLEATED RED BLOOD CELLS (BEAKER) (test 0 /100 WBC 0-0 nfca=401) NEUTROPHILS RELATIVE PERCENT (BEAKER) (test 71 % knrg=401) LYMPHOCYTES RELATIVE PERCENT (BEAKER) (test 18 % vdeg=829) MONOCYTES RELATIVE PERCENT (BEAKER) (test 6 % vtzk=376) EOSINOPHILS RELATIVE PERCENT (BEAKER) (test 4 % kddz=320) BASOPHILS RELATIVE PERCENT (BEAKER) (test 0 % ineq=370) NEUTROPHILS ABSOLUTE COUNT (BEAKER) (test 12.07 K/ L 1.56-6.13 kphv=309) LYMPHOCYTES ABSOLUTE COUNT (BEAKER) (test 3.00 K/ L 1.18-3.74 ljty=738) MONOCYTES ABSOLUTE COUNT (BEAKER) (test 1.08 K/ L 0.24-0.36 wwfn=312) EOSINOPHILS ABSOLUTE COUNT (BEAKER) (test 0.69 K/ L 0.04-0.36 egls=851) BASOPHILS ABSOLUTE COUNT (BEAKER) (test 0.01 K/ L 0.01-0.08 qwzx=665) IMMATURE GRANULOCYTES-RELATIVE PERCENT (BEAKER) 1 % 0-1 (test hhfp=6923) POCT-GLUCOSE [id number] 06:18:00 Test Item Value Reference Range Comments POC-GLUCOSE METER (BEAKER) 174 mg/dL 70-110 TESTED AT [address] (test ueyj=9692) [place] [address] POCT-GLUCOSE [id number] 00:56:00 Test Item Value Reference Range Comments POC-GLUCOSE METER (BEAKER) 398 mg/dL 70-110 TESTED AT [address] (test vywt=4194) [place] [address] POCT-GLUCOSE [id number] 21:15:00 Test Item Value Reference Range Comments POC-GLUCOSE METER (BEAKER) 85 mg/dL 70-110 TESTED AT [address] (test zjxt=5172) [place] [address] POCT-GLUCOSE [id number] 17:21:00 Test Item Value Reference Range Comments POC-GLUCOSE METER (BEAKER) 196 mg/dL 70-110 TESTED AT [address] (test eyqi=5834) [place] [address] POCT-GLUCOSE [id number] 15:31:00 Test Item Value Reference Range Comments POC-GLUCOSE METER (BEAKER) 428 mg/dL 70-110 TESTED AT [address] (test xxvw=2518) [place] [address] POCT-GLUCOSE [id number] 12:04:00 Test Item Value Reference Range Comments POC-GLUCOSE METER (BEAKER) 81 mg/dL 70-110 TESTED AT [address] (test eoii=7360) [place] [address] BLOOD GAS, [id number] 09:46:00 Test Item Value Reference Range Comments PH VENOUS (BEAKER) (test ujbv=957) 7.41 7.32-7.42 PCO2 VENOUS (BEAKER) (test ifjh=500) 72 mmHg 41-51 PO2 VENOUS (BEAKER) (test lkpw=391) 56 mmHg 25-40 O2 SATURATION VENOUS (BEAKER) (test xull=573) 87.7 % 40.0-70.0 HCO3 VENOUS (BEAKER) (test cqaq=487) 45 mmol/L 21-29 BASE EXCESS VENOUS (BEAKER) (test lqpe=933) 17.9 mmol/L -2.0-3.0 PATIENT TEMPERATURE (BEAKER) (test xqej=0962) 37.0 C FIO2 (BEAKER) (test hoyb=6900) 100.0 % POCT-GLUCOSE [id number] 09:13:00 Test Item Value Reference Range Comments POC-GLUCOSE METER (BEAKER) 109 mg/dL 70-110 TESTED AT [place] [address] [address] (test ojzx=9094) [facility] [address] POCT-GLUCOSE [id number] 08:51:00 Test Item Value Reference Range Comments POC-GLUCOSE METER (BEAKER) 69 mg/dL 70-110 Notified JORDON STAPLETON/TESTED AT [facility] (test alfa=2133) [address] [place] [address] BASIC METABOLIC [id number] 06:32:00 Test Item Value Reference Range Comments SODIUM (BEAKER) (test 137 meq/L 136-145 kojr=616) POTASSIUM (BEAKER) (test 4.5 meq/L 3.5-5.1 uapa=787) CHLORIDE (BEAKER) (test 91 meq/L 98-107 vhwo=264) CO2 (BEAKER) (test 40 meq/L 22-29 kfui=118) BLOOD UREA NITROGEN 17 mg/dL 7-21 (BEAKER) (test utrh=961) CREATININE (BEAKER) (test 0.68 mg/dL 0.57-1.25 yieu=873) GLUCOSE RANDOM (BEAKER) 201 mg/dL 70-105 (test zpyk=245) CALCIUM (BEAKER) (test 8.2 mg/dL 8.4-10.2 ahzj=636) EGFR (BEAKER) (test 127 mL/min/1.73 sq m ESTIMATED GFR IS NOT ntpq=8027) ACCURATE CREATININE CLEARANCE IN PREDICTING GLOMERULAR FILTRATION RATE. ESTIMATED GFR IS NOT APPLICABLE FOR DIALYSIS PATIENTS. CBC W/PLT COUNT & AUTO [id number] 05:59:00 Test Item Value Reference Range Comments WHITE BLOOD CELL COUNT (BEAKER) (test ugst=721) 18.4 K/ L 3.5-10.5 RED BLOOD CELL COUNT (BEAKER) (test hiwo=424) 3.19 M/ L 3.93-5.22 HEMOGLOBIN (BEAKER) (test xdzg=359) 8.4 GM/DL 11.2-15.7 HEMATOCRIT (BEAKER) (test gijb=991) 27.9 % 34.1-44.9 MEAN CORPUSCULAR VOLUME (BEAKER) (test pnwe=405) 87.5 fL 79.4-94.8 MEAN CORPUSCULAR HEMOGLOBIN (BEAKER) (test 26.3 pg 25.6-32.2 levd=460) MEAN CORPUSCULAR HEMOGLOBIN CONC (BEAKER) (test 30.1 GM/DL 32.2-35.5 mxlq=888) RED CELL DISTRIBUTION WIDTH (BEAKER) (test 16.9 % 11.7-14.4 pumq=455) PLATELET COUNT (BEAKER) (test clcv=679) 408 K/CU MM 150-450 MEAN PLATELET VOLUME (BEAKER) (test klku=335) 10.9 fL 9.4-12.3 NUCLEATED RED BLOOD CELLS (BEAKER) (test 0 /100 WBC 0-0 qpxd=779) NEUTROPHILS RELATIVE PERCENT (BEAKER) (test 75 % dibz=337) LYMPHOCYTES RELATIVE PERCENT (BEAKER) (test 15 % nllb=430) MONOCYTES RELATIVE PERCENT (BEAKER) (test 5 % xeka=145) EOSINOPHILS RELATIVE PERCENT (BEAKER) (test 3 % layr=603) BASOPHILS RELATIVE PERCENT (BEAKER) (test 0 % dhao=581) NEUTROPHILS ABSOLUTE COUNT (BEAKER) (test 13.84 K/ L 1.56-6.13 ycoa=230) LYMPHOCYTES ABSOLUTE COUNT (BEAKER) (test 2.72 K/ L 1.18-3.74 feew=975) MONOCYTES ABSOLUTE COUNT (BEAKER) (test 1.00 K/ L 0.24-0.36 qdwc=879) EOSINOPHILS ABSOLUTE COUNT (BEAKER) (test 0.63 K/ L 0.04-0.36 fpul=540) BASOPHILS ABSOLUTE COUNT (BEAKER) (test 0.02 K/ L 0.01-0.08 spba=945) IMMATURE GRANULOCYTES-RELATIVE PERCENT (BEAKER) 1 % 0-1 (test pxwx=4118) POCT-GLUCOSE [id number] 21:54:00 Test Item Value Reference Range Comments POC-GLUCOSE METER (BEAKER) 175 mg/dL 70-110 TESTED AT [address] (test alzp=2212) [place] [address] POCT-GLUCOSE [id number] 17:41:00 Test Item Value Reference Range Comments POC-GLUCOSE METER (BEAKER) 391 mg/dL 70-110 Notified RN or MD Patient (test rxjb=7272) refused repeat test/TESTED AT [place] [address] POCT-GLUCOSE [id number] 12:40:00 Test Item Value Reference Range Comments POC-GLUCOSE METER (BEAKER) 104 mg/dL 70-110 TESTED AT [address] (test bacl=4082) [place] [address] POCT-GLUCOSE [id number] 09:09:00 Test Item Value Reference Range Comments POC-GLUCOSE METER (BEAKER) 74 mg/dL 70-110 TESTED AT [address] (test xjnp=3986) [place] [address] BASIC METABOLIC [id number] 06:42:00 Test Item Value Reference Range Comments SODIUM (BEAKER) (test 139 meq/L 136-145 mxru=882) POTASSIUM (BEAKER) (test 4.0 meq/L 3.5-5.1 Specimen slightly bpsj=157) hemolyzed CHLORIDE (BEAKER) (test 95 meq/L 98-107 hbnn=196) CO2 (BEAKER) (test 38 meq/L 22-29 adad=741) BLOOD UREA NITROGEN 12 mg/dL 7-21 (BEAKER) (test ohri=451) CREATININE (BEAKER) (test 0.66 mg/dL 0.57-1.25 Specimen slightly mzyi=198) hemolyzed GLUCOSE RANDOM (BEAKER) 78 mg/dL 70-105 (test eizh=358) CALCIUM (BEAKER) (test 8.2 mg/dL 8.4-10.2 ruvr=348) EGFR (BEAKER) (test 131 mL/min/1.73 sq m ESTIMATED GFR IS NOT ttym=1083) ACCURATE CREATININE CLEARANCE IN PREDICTING GLOMERULAR FILTRATION RATE. ESTIMATED GFR IS NOT APPLICABLE FOR DIALYSIS PATIENTS. LACTIC ACID, [id number] 06:34:00 Test Item Value Reference Range Comments LACTATE BLOOD VENOUS (2) (BEAKER) (test 1.9 mmol/L 0.5-2.2 euey=5679) CBC W/PLT COUNT & AUTO [id number] 06:15:00 Test Item Value Reference Range Comments WHITE BLOOD CELL COUNT (BEAKER) (test tcde=497) 18.6 K/ L 3.5-10.5 RED BLOOD CELL COUNT (BEAKER) (test kiqb=287) 3.38 M/ L 3.93-5.22 HEMOGLOBIN (BEAKER) (test euhp=135) 8.7 GM/DL 11.2-15.7 HEMATOCRIT (BEAKER) (test nsrz=426) 29.4 % 34.1-44.9 MEAN CORPUSCULAR VOLUME (BEAKER) (test brcb=123) 87.0 fL 79.4-94.8 MEAN CORPUSCULAR HEMOGLOBIN (BEAKER) (test 25.7 pg 25.6-32.2 ryxl=427) MEAN CORPUSCULAR HEMOGLOBIN CONC (BEAKER) (test 29.6 GM/DL 32.2-35.5 qgzk=348) RED CELL DISTRIBUTION WIDTH (BEAKER) (test 16.7 % 11.7-14.4 aaea=386) PLATELET COUNT (BEAKER) (test oqyl=634) 407 K/CU MM 150-450 MEAN PLATELET VOLUME (BEAKER) (test rlpp=583) 10.4 fL 9.4-12.3 NUCLEATED RED BLOOD CELLS (BEAKER) (test 0 /100 WBC 0-0 blgi=582) NEUTROPHILS RELATIVE PERCENT (BEAKER) (test 79 % zwhd=601) LYMPHOCYTES RELATIVE PERCENT (BEAKER) (test 12 % oito=558) MONOCYTES RELATIVE PERCENT (BEAKER) (test 5 % iktk=344) EOSINOPHILS RELATIVE PERCENT (BEAKER) (test 2 % vudn=115) BASOPHILS RELATIVE PERCENT (BEAKER) (test 0 % qdgj=576) NEUTROPHILS ABSOLUTE COUNT (BEAKER) (test 14.66 K/ L 1.56-6.13 pjhr=187) LYMPHOCYTES ABSOLUTE COUNT (BEAKER) (test 2.31 K/ L 1.18-3.74 bkay=708) MONOCYTES ABSOLUTE COUNT (BEAKER) (test 1.00 K/ L 0.24-0.36 nlft=969) EOSINOPHILS ABSOLUTE COUNT (BEAKER) (test 0.36 K/ L 0.04-0.36 bojd=469) BASOPHILS ABSOLUTE COUNT (BEAKER) (test 0.01 K/ L 0.01-0.08 moxx=154) IMMATURE GRANULOCYTES-RELATIVE PERCENT (BEAKER) 2 % 0-1 (test lnrs=1859) BLOOD [id number] 02:01:00 Test Item Value Reference Range Comments CULTURE (BEAKER) (test gtkg=6361) No growth in 5 days BLOOD [id number] 02:01:00 Test Item Value Reference Range Comments CULTURE (BEAKER) (test wnja=9775) No growth in 5 days POCT-GLUCOSE [id number] 22:01:00 Test Item Value Reference Range Comments POC-GLUCOSE METER (BEAKER) 330 mg/dL 70-110 Notified JORDON STAPLETON/TESTED AT [facility] (test eqjd=6373) [address] [place] [address] POCT-GLUCOSE [id number] 17:27:00 Test Item Value Reference Range Comments POC-GLUCOSE METER (BEAKER) 306 mg/dL 70-110 Notified RN or Patient (test anhe=2744) refused repeat test/TESTED AT [address] [address] POCT-GLUCOSE [id number] 12:48:00 Test Item Value Reference Range Comments POC-GLUCOSE METER (BEAKER) 251 mg/dL 70-110 TESTED AT [address] (test yxsb=6001) [facility] [address] CBC W/PLT COUNT & AUTO [id number] 10:15:00 Test Item Value Reference Range Comments WHITE BLOOD CELL COUNT (BEAKER) (test gdhf=474) 17.1 K/ L 3.5-10.5 RED BLOOD CELL COUNT (BEAKER) (test umwt=237) 3.28 M/ L 3.93-5.22 HEMOGLOBIN (BEAKER) (test eeum=191) 8.6 GM/DL 11.2-15.7 HEMATOCRIT (BEAKER) (test zzye=395) 28.4 % 34.1-44.9 MEAN CORPUSCULAR VOLUME (BEAKER) (test guvq=445) 86.6 fL 79.4-94.8 MEAN CORPUSCULAR HEMOGLOBIN (BEAKER) (test 26.2 pg 25.6-32.2 hpuy=539) MEAN CORPUSCULAR HEMOGLOBIN CONC (BEAKER) (test 30.3 GM/DL 32.2-35.5 prbj=225) RED CELL DISTRIBUTION WIDTH (BEAKER) (test 16.2 % 11.7-14.4 ozpc=399) PLATELET COUNT (BEAKER) (test ccnt=433) 394 K/CU MM 150-450 MEAN PLATELET VOLUME (BEAKER) (test aucx=629) 10.5 fL 9.4-12.3 NUCLEATED RED BLOOD CELLS (BEAKER) (test 0 /100 WBC 0-0 qorj=503) (CELLAVISION MANUAL DIFF)[id number] 10:15:00 Test Item Value Reference Range Comments NEUTROPHILS - REL (CELLAVISION)(BEAKER) (test 81 % qfpe=2614) LYMPHOCYTES - REL (CELLAVISION)(BEAKER) (test 5 % fuie=4373) MONOCYTES - REL (CELLAVISION)(BEAKER) (test 6 % xped=2832) EOSINOPHILS - REL (CELLAVISION)(BEAKER) (test 7 % gddt=1096) MYELOCYTES - REL (CELLAVISION)(BEAKER) (test 1 % 0-0 fkoo=4167) NEUTROPHILS - ABS (CELLAVISION)(BEAKER) (test 13.85 K/ul 1.56-6.13 pszm=4793) LYMPHOCYTES - ABS (CELLAVISION)(BEAKER) (test 0.86 K/ul 1.18-3.74 bjgx=6757) MONOCYTES - ABS (CELLAVISION)(BEAKER) (test 1.03 K/uL 0.24-0.36 yjyi=0945) EOSINOPHILS - ABS (CELLAVISION)(BEAKER) (test 1.20 K/uL 0.04-0.36 bvit=6715) MYELOCYTES-ABS (CELLAVISION)(BEAKER) (test 0.17 K/uL 0.00-0.00 cxqp=4759) TOTAL COUNTED (BEAKER) (test rcpj=5410) 100 WBC MORPHOLOGY (BEAKER) (test eusd=422) Normal PLT MORPHOLOGY (BEAKER) (test pagf=674) Normal HYPOCHROMIA (BEAKER) (test pemg=725) 1+ few BASOPHILIC STIPPLING (BEAKER) (test ixfn=072) Present ARTIFACT (CELLAVISION)(BEAKER) (test ryfc=3377) Present PLATELET CONCENTRATION (CELLAVISION)(BEAKER) Adequate (test nwuh=1379) Received comment: User comments: Slide comments:POCT-GLUCOSE [id number] 09: 42:00 Test Item Value Reference Range Comments POC-GLUCOSE METER (BEAKER) 88 mg/dL 70-110 TESTED AT [facility] [address] [place] [address] (test lbau=8084) [facility] [address] BLOOD GAS, [id number] 08:59:00 Test Item Value Reference Range Comments PH VENOUS (BEAKER) (test jrdc=541) 7.43 7.32-7.42 PCO2 VENOUS (BEAKER) (test qvbo=679) 70 mmHg 41-51 PO2 VENOUS (BEAKER) (test wfry=866) 41 mmHg 25-40 O2 SATURATION VENOUS (BEAKER) (test eqcd=630) 75.9 % 40.0-70.0 HCO3 VENOUS (BEAKER) (test eccx=018) 45 mmol/L 21-29 BASE EXCESS VENOUS (BEAKER) (test oiyv=248) 17.9 mmol/L -2.0-3.0 PATIENT TEMPERATURE (BEAKER) (test mzwa=4324) 36.9 C FIO2 (BEAKER) (test efjs=4790) 32.0 % AFB CULTURE + [id number] 07:47:00 Test Item Value Reference Range Comments CULTURE (BEAKER) (test No acid-fast bacilli isolated roib=1855) in 42 days AFB SMEAR (BEAKER) (test No acid fast bacilli seen psbw=070) BASIC METABOLIC [id number] 06:21:00 Test Item Value Reference Range Comments SODIUM (BEAKER) (test 139 meq/L 136-145 ileg=475) POTASSIUM (BEAKER) (test 3.0 meq/L 3.5-5.1 udsq=228) CHLORIDE (BEAKER) (test 94 meq/L 98-107 ewfl=128) CO2 (BEAKER) (test 39 meq/L 22-29 hxif=744) BLOOD UREA NITROGEN 11 mg/dL 7-21 (BEAKER) (test evjz=169) CREATININE (BEAKER) (test 0.63 mg/dL 0.57-1.25 lxlb=959) GLUCOSE RANDOM (BEAKER) 134 mg/dL 70-105 (test twec=170) CALCIUM (BEAKER) (test 7.9 mg/dL 8.4-10.2 pihp=821) EGFR (BEAKER) (test 138 mL/min/1.73 sq m ESTIMATED GFR IS NOT hcea=4073) ACCURATE CREATININE CLEARANCE IN PREDICTING GLOMERULAR FILTRATION RATE. ESTIMATED GFR IS NOT APPLICABLE FOR DIALYSIS PATIENTS. POCT-GLUCOSE [id number] 21:06:00 Test Item Value Reference Range Comments POC-GLUCOSE METER (BEAKER) 351 mg/dL 70-110 TESTED AT [address] (test oxhp=1197) [place] [address] POCT-GLUCOSE [id number] 17:43:00 Test Item Value Reference Range Comments POC-GLUCOSE METER (BEAKER) > mg/dL 70-110 OUTSIDE MEASURING RANGEWill (test vxle=9584) Repeat Test/TESTED AT [place] [address] POCT-GLUCOSE [id number] 12:03:00 Test Item Value Reference Range Comments POC-GLUCOSE METER (BEAKER) 370 mg/dL 70-110 Will Repeat Test/TESTED AT (test yuii=1172) [place] [id number] POCT-GLUCOSE [id number] 09:33:00 Test Item Value Reference Range Comments POC-GLUCOSE METER (BEAKER) 243 mg/dL 70-110 TESTED AT [address] (test ldca=2670) [place] [address] CBC W/PLT COUNT & AUTO [id number] 07:52:00 Test Item Value Reference Range Comments WHITE BLOOD CELL COUNT (BEAKER) (test uvcy=547) 17.7 K/ L 3.5-10.5 RED BLOOD CELL COUNT (BEAKER) (test uepa=256) 3.15 M/ L 3.93-5.22 HEMOGLOBIN (BEAKER) (test xvrv=668) 8.2 GM/DL 11.2-15.7 HEMATOCRIT (BEAKER) (test iydv=919) 27.1 % 34.1-44.9 MEAN CORPUSCULAR VOLUME (BEAKER) (test opgo=851) 86.0 fL 79.4-94.8 MEAN CORPUSCULAR HEMOGLOBIN (BEAKER) (test 26.0 pg 25.6-32.2 lgcd=052) MEAN CORPUSCULAR HEMOGLOBIN CONC (BEAKER) (test 30.3 GM/DL 32.2-35.5 galw=755) RED CELL DISTRIBUTION WIDTH (BEAKER) (test 16.4 % 11.7-14.4 qwog=650) PLATELET COUNT (BEAKER) (test bwbz=793) 389 K/CU MM 150-450 MEAN PLATELET VOLUME (BEAKER) (test ubhj=063) 10.3 fL 9.4-12.3 NUCLEATED RED BLOOD CELLS (BEAKER) (test 0 /100 WBC 0-0 dnup=801) (CELLAVISION MANUAL DIFF)2019-04-16 07:52:00 Test Item Value Reference Range Comments NEUTROPHILS - REL (CELLAVISION)(BEAKER) (test 82 % gqfa=2326) LYMPHOCYTES - REL (CELLAVISION)(BEAKER) (test 9 % mtjt=9364) MONOCYTES - REL (CELLAVISION)(BEAKER) (test 7 % zsim=5673) BANDS - REL (CELLAVISION)(BEAKER) (test 2 % 0-10 kfxp=7695) NEUTROPHILS - ABS (CELLAVISION)(BEAKER) (test 14.51 K/ul 1.56-6.13 dbsi=3189) LYMPHOCYTES - ABS (CELLAVISION)(BEAKER) (test 1.59 K/ul 1.18-3.74 ypmq=4815) MONOCYTES - ABS (CELLAVISION)(BEAKER) (test 1.24 K/uL 0.24-0.36 xtrd=2141) BANDS - ABS (CELLAVISION)(BEAKER) (test 0.35 K/uL 0.00-0.80 voun=0685) TOTAL COUNTED (BEAKER) (test mltz=4000) 100 WBC MORPHOLOGY (BEAKER) (test gzcx=855) Normal LARGE PLT(BEAKER) (test dogw=9565) Present POLYCHROMATOPHILLIC RBCS(BEAKER) (test ncsd=696) 1+ few HYPOCHROMIA (BEAKER) (test bazr=820) 1+ few ARTIFACT (CELLAVISION)(BEAKER) (test kwpa=8778) Present PLATELET CONCENTRATION (CELLAVISION)(BEAKER) Adequate (test sbkt=5860) Received comment: User comments: Slide comments:BASIC METABOLIC [id number] 06:47:00 Test Item Value Reference Range Comments SODIUM (BEAKER) (test 140 meq/L 136-145 erxb=172) POTASSIUM (BEAKER) (test 3.5 meq/L 3.5-5.1 ablz=361) CHLORIDE (BEAKER) (test 97 meq/L 98-107 mvky=978) CO2 (BEAKER) (test 36 meq/L 22-29 qahb=302) BLOOD UREA NITROGEN 16 mg/dL 7-21 (BEAKER) (test lgyf=441) CREATININE (BEAKER) (test 0.74 mg/dL 0.57-1.25 zkel=665) GLUCOSE RANDOM (BEAKER) 408 mg/dL 70-105 (test clim=403) CALCIUM (BEAKER) (test 8.3 mg/dL 8.4-10.2 fexc=779) EGFR (BEAKER) (test 115 mL/min/1.73 sq m ESTIMATED GFR IS NOT arhb=1576) ACCURATE CREATININE CLEARANCE IN PREDICTING GLOMERULAR FILTRATION RATE. ESTIMATED GFR IS NOT APPLICABLE FOR DIALYSIS PATIENTS. POCT-GLUCOSE [id number] 21:53:00 Test Item Value Reference Range Comments POC-GLUCOSE METER (BEAKER) 358 mg/dL 70-110 TESTED AT [address] (test cxnw=7197) [place] [id number] POCT-GLUCOSE [id number] 20:34:00 Test Item Value Reference Range Comments POC-GLUCOSE METER (BEAKER) 325 mg/dL 70-110 TESTED AT [address] (test tgey=4001) [facility] [address] POCT-GLUCOSE [id number] 17:15:00 Test Item Value Reference Range Comments POC-GLUCOSE METER (BEAKER) 446 mg/dL 70-110 Notified JORDON STAPLETON/TESTED AT [facility] (test wjzf=1204) [address] [place] [id number], CHEST WITH IV CONTRAST- PE TEST [id number] 16:56:00FINAL REPORT DOSE REDUCTION: The examination was performed according to departmental dose-optimization program which includes automated exposure control, adjustment of the mA and/or kV according to patient size and/or use of iterative reconstruction technique. TECHNIQUE: Postcontrast axial images of the chest were obtained from above the arch level to the lower chest at maximum enhancement of pulmonary artery. Coronal reconstruction was performed. COMPARISON: CT of the chest, 06/11/2015 DISCUSSION: There are no filling defects in the pulmonary arteries. The great vesselsand aorta are unremarkable. The heart is normal in size. There are enlarged mediastinal and hilar lymph nodes measuring up to 1.3 cm. These are stable. Visualized upper abdomen demonstrates no focal abnormality. There are some nonspecific edema along the midline anterior chest wall as well as mild soft tissue anasarca posteriorly.A right internal jugular chest port noted with tip at the cavoatrial junction. The trachea and mainstem bronchi are patent. There are trace pleural effusions bilaterally. 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 Compared to CT from 06/11/2015 some of the bullae appear larger.Patchy groundglass and reticular nodular opacities are seen bilaterally. Some of the opacities from CT of 06/11/2015 have resolved, others have increased. IMPRESSION : 1. No evidence of pulmonary embolism. 2. Findings consistent with sequela of cystic fibrosis. 3. Bilateral patchy groundglass and reticular nodular opacities , some are new from CT of 06/11/2015. The latter could represent superimposed acute pneumonitis. Trace pleural effusions. Signed: Lg [place] Verified Date/Time: 04/15/2019 16:56:47 Reading Location: [address] Transitional Reading Room POCT-GLUCOSE [id number] 11:53:00 Test Item Value Reference Range Comments POC-GLUCOSE METER (BEAKER) 371 mg/dL 70-110 Notified JORDON STAPLETON/TESTED AT [facility] (test nkep=1400) [address] [facility] [address] CBC W/PLT COUNT & AUTO [id number] 10:05:00 Test Item Value Reference Range Comments WHITE BLOOD CELL COUNT (BEAKER) (test qebo=810) 23.1 K/ L 3.5-10.5 RED BLOOD CELL COUNT (BEAKER) (test fknu=829) 3.23 M/ L 3.93-5.22 HEMOGLOBIN (BEAKER) (test qpiy=517) 8.5 GM/DL 11.2-15.7 HEMATOCRIT (BEAKER) (test yvlb=806) 28.3 % 34.1-44.9 MEAN CORPUSCULAR VOLUME (BEAKER) (test wqvf=372) 87.6 fL 79.4-94.8 MEAN CORPUSCULAR HEMOGLOBIN (BEAKER) (test 26.3 pg 25.6-32.2 tnwf=800) MEAN CORPUSCULAR HEMOGLOBIN CONC (BEAKER) (test 30.0 GM/DL 32.2-35.5 ukve=229) RED CELL DISTRIBUTION WIDTH (BEAKER) (test 16.4 % 11.7-14.4 zffg=013) PLATELET COUNT (BEAKER) (test mqkc=181) 400 K/CU MM 150-450 MEAN PLATELET VOLUME (BEAKER) (test hxro=612) 9.9 fL 9.4-12.3 NUCLEATED RED BLOOD CELLS (BEAKER) (test 0 /100 WBC 0-0 qxmi=397) (CELLAVISION MANUAL DIFF)2019-04-15 10:05:00 Test Item Value Reference Range Comments NEUTROPHILS - REL (CELLAVISION)(BEAKER) (test 92 % zxjo=4460) LYMPHOCYTES - REL (CELLAVISION)(BEAKER) (test 3 % lbbj=2534) MONOCYTES - REL (CELLAVISION)(BEAKER) (test 5 % cvwa=1898) NEUTROPHILS - ABS (CELLAVISION)(BEAKER) (test 21.25 K/ul 1.56-6.13 nleb=0319) LYMPHOCYTES - ABS (CELLAVISION)(BEAKER) (test 0.69 K/ul 1.18-3.74 rior=9085) MONOCYTES - ABS (CELLAVISION)(BEAKER) (test 1.16 K/uL 0.24-0.36 anrg=4409) TOTAL COUNTED (BEAKER) (test kcns=8703) 100 RBC MORPHOLOGY (BEAKER) (test quik=654) Normal WBC MORPHOLOGY (BEAKER) (test uxjj=543) Normal PLT MORPHOLOGY (BEAKER) (test cbqj=199) Normal ARTIFACT (CELLAVISION)(BEAKER) (test vqxp=9528) Present PLATELET CONCENTRATION (CELLAVISION)(BEAKER) Adequate (test jrfb=6692) Received comment: User comments: Slide comments:POCT-GLUCOSE [id number] 07: 57:00 Test Item Value Reference Range Comments POC-GLUCOSE METER (BEAKER) 337 mg/dL 70-110 Notified JORDON STAPLETON/TESTED AT [facility] (test ytqh=3850) [address] [facility] [address] BASIC METABOLIC [id number] 06:56:00 Test Item Value Reference Range Comments SODIUM (BEAKER) (test 136 meq/L 136-145 lsvk=144) POTASSIUM (BEAKER) (test 4.3 meq/L 3.5-5.1 oupz=971) CHLORIDE (BEAKER) (test 97 meq/L 98-107 xwjf=461) CO2 (BEAKER) (test 33 meq/L 22-29 qknw=271) BLOOD UREA NITROGEN 14 mg/dL 7-21 (BEAKER) (test ucph=490) CREATININE (BEAKER) (test 0.73 mg/dL 0.57-1.25 dior=877) GLUCOSE RANDOM (BEAKER) 274 mg/dL 70-105 (test pkbo=492) CALCIUM (BEAKER) (test 8.2 mg/dL 8.4-10.2 zbse=951) EGFR (BEAKER) (test 117 mL/min/1.73 sq m ESTIMATED GFR IS NOT fmmg=6655) ACCURATE CREATININE CLEARANCE IN PREDICTING GLOMERULAR FILTRATION RATE. ESTIMATED GFR IS NOT APPLICABLE FOR DIALYSIS PATIENTS. SCREEN, [id number] 01:40:00 Test Item Value Reference Range Comments TEST URINE (BEAKER) (test bexu=207) Negative POCT-GLUCOSE [id number] 18:03:00 Test Item Value Reference Range Comments POC-GLUCOSE METER (BEAKER) 327 mg/dL 70-110 Notified JORDON STAPLETON/TESTED AT [facility] (test vssd=6831) [address] [facility] [address] CBC W/PLT COUNT & AUTO [id number] 15:01:00 Test Item Value Reference Range Comments WHITE BLOOD CELL COUNT (BEAKER) (test xiqz=970) 24.0 K/ L 3.5-10.5 RED BLOOD CELL COUNT (BEAKER) (test fgfo=116) 3.38 M/ L 3.93-5.22 HEMOGLOBIN (BEAKER) (test mznt=328) 8.8 GM/DL 11.2-15.7 HEMATOCRIT (BEAKER) (test ueer=302) 29.8 % 34.1-44.9 MEAN CORPUSCULAR VOLUME (BEAKER) (test wvxp=579) 88.2 fL 79.4-94.8 MEAN CORPUSCULAR HEMOGLOBIN (BEAKER) (test 26.0 pg 25.6-32.2 yvkf=108) MEAN CORPUSCULAR HEMOGLOBIN CONC (BEAKER) (test 29.5 GM/DL 32.2-35.5 jnvk=194) RED CELL DISTRIBUTION WIDTH (BEAKER) (test 16.5 % 11.7-14.4 mrsr=236) PLATELET COUNT (BEAKER) (test qsqt=508) 387 K/CU MM 150-450 MEAN PLATELET VOLUME (BEAKER) (test huwi=831) 9.7 fL 9.4-12.3 NUCLEATED RED BLOOD CELLS (BEAKER) (test 0 /100 WBC 0-0 hjfj=602) (CELLAVISION MANUAL DIFF)2019-04-14 15:01:00 Test Item Value Reference Range Comments NEUTROPHILS - REL (CELLAVISION)(BEAKER) (test 95 % nfon=4431) LYMPHOCYTES - REL (CELLAVISION)(BEAKER) (test 3 % aqok=6664) MONOCYTES - REL (CELLAVISION)(BEAKER) (test 2 % qyoe=6643) NEUTROPHILS - ABS (CELLAVISION)(BEAKER) (test 22.80 K/ul 1.56-6.13 kycu=6708) LYMPHOCYTES - ABS (CELLAVISION)(BEAKER) (test 0.72 K/ul 1.18-3.74 tori=1388) MONOCYTES - ABS (CELLAVISION)(BEAKER) (test 0.48 K/uL 0.24-0.36 ooth=3989) TOTAL COUNTED (BEAKER) (test zmet=2693) 100 WBC MORPHOLOGY (BEAKER) (test ftqp=970) Normal LARGE PLT(BEAKER) (test xsek=6104) Present POLYCHROMATOPHILLIC RBCS(BEAKER) (test mvng=885) 1+ few HYPOCHROMIA (BEAKER) (test ovxs=562) 1+ few BASOPHILIC STIPPLING (BEAKER) (test lhkh=510) Present ARTIFACT (CELLAVISION)(BEAKER) (test hjkp=2073) Present PLATELET CONCENTRATION (CELLAVISION)(BEAKER) Adequate (test arze=2783) Received comment: User comments: Slide comments:POCT-GLUCOSE [id number] 11: 50:00 Test Item Value Reference Range Comments POC-GLUCOSE METER (BEAKER) 422 mg/dL 70-110 Notified JORDON STAPLETON/TESTED AT [facility] (test ycce=3808) [address] [place], [place] [id number] POCT-GLUCOSE [id number] 07:40:00 Test Item Value Reference Range Comments POC-GLUCOSE METER (BEAKER) > mg/dL 70-110 OUTSIDE MEASURING RANGENotified JORDON (test dsyz=1761) MD/TESTED AT [place] [id number] 05:34:00 Test Item Value Reference Range Comments BLOOD UREA NITROGEN (BEAKER) (test erpq=735) 17 mg/dL 05-14 [id number] 05:34:00 Test Item Value Reference Range Comments CREATININE (BEAKER) (test 1.09 mg/dL 0.57-1.25 mhgd=819) EGFR (BEAKER) (test 74 mL/min/1.73 sq m ESTIMATED GFR IS NOT momd=0833) ACCURATE CREATININE CLEARANCE IN PREDICTING GLOMERULAR FILTRATION RATE. ESTIMATED GFR IS NOT APPLICABLE FOR DIALYSIS PATIENTS. POCT-GLUCOSE [id number] 22:01:00 Test Item Value Reference Range Comments POC-GLUCOSE METER (BEAKER) 314 mg/dL 70-110 Notified JORDON STAPLETON/TESTED AT [facility] (test soal=3961) [address] [place] [address] POCT-GLUCOSE [id number] 17:42:00 Test Item Value Reference Range Comments POC-GLUCOSE METER (BEAKER) 192 mg/dL 70-110 TESTED AT [address] (test ktqo=0967) [place] [id number] POCT-GLUCOSE [id number] 14:10:00 Test Item Value Reference Range Comments POC-GLUCOSE METER (BEAKER) 372 mg/dL 70-110 TESTED AT [address] (test twtn=6759) [place] [address] BASIC METABOLIC [id number] 07:00:00 Test Item Value Reference Range Comments SODIUM (BEAKER) (test 139 meq/L 136-145 dukx=602) POTASSIUM (BEAKER) (test 4.1 meq/L 3.5-5.1 vudu=401) CHLORIDE (BEAKER) (test 103 meq/L 98-107 zkfb=711) CO2 (BEAKER) (test 27 meq/L 22-29 mulc=322) BLOOD UREA NITROGEN 20 mg/dL 7-21 (BEAKER) (test zcce=880) CREATININE (BEAKER) (test 0.93 mg/dL 0.57-1.25 iwqk=721) GLUCOSE RANDOM (BEAKER) 278 mg/dL 70-105 (test qnpu=968) CALCIUM (BEAKER) (test 7.8 mg/dL 8.4-10.2 uxat=622) EGFR (BEAKER) (test 88 mL/min/1.73 sq m ESTIMATED GFR IS NOT qrzh=3308) ACCURATE CREATININE CLEARANCE IN PREDICTING GLOMERULAR FILTRATION RATE. ESTIMATED GFR IS NOT APPLICABLE FOR DIALYSIS PATIENTS. POCT-GLUCOSE [id number] 06:44:00 Test Item Value Reference Range Comments POC-GLUCOSE METER (BEAKER) 177 mg/dL 70-110 TESTED AT [address] (test mkef=5188) [place] [address] [id number] 05:08:00 Test Item Value Reference Range Comments BLOOD UREA NITROGEN (BEAKER) (test frlh=268) 21 mg/dL 7-21 [id number] 05:08:00 Test Item Value Reference Range Comments CREATININE (BEAKER) (test 1.03 mg/dL 0.57-1.25 mqrh=909) EGFR (BEAKER) (test 79 mL/min/1.73 sq m ESTIMATED GFR IS NOT xqkn=8364) ACCURATE CREATININE CLEARANCE IN PREDICTING GLOMERULAR FILTRATION RATE. ESTIMATED GFR IS NOT APPLICABLE FOR DIALYSIS PATIENTS. POCT-GLUCOSE [id number] 03:44:00 Test Item Value Reference Range Comments POC-GLUCOSE METER (BEAKER) 411 mg/dL 70-110 Notified RN MD/TESTED AT [facility] (test lydn=9412) [address] [facility] [address] POCT-GLUCOSE [id number] 02:22:00 Test Item Value Reference Range Comments POC-GLUCOSE METER (BEAKER) 409 mg/dL 70-110 TESTED AT [facility] [address] [facility] (test cqos=7302) [facility] [address] POCT-GLUCOSE [id number] 00:48:00 Test Item Value Reference Range Comments POC-GLUCOSE METER (BEAKER) > mg/dL 70-110 OUTSIDE MEASURING RANGENotified RN (test bdtz=9787) MD/TESTED AT [facility] [address] [place] [address] B-TYPE NATRIURETIC FACTOR (BNP)2019-04-12 19:52:00 Test Item Value Reference Range Comments B-TYPE NATRIURETIC PEPTIDE (BEAKER) (test 618 pg/mL 0-100 xdny=374) BASIC METABOLIC [id number] 19:34:00 Test Item Value Reference Range Comments SODIUM (BEAKER) (test 137 meq/L 136-145 lhxk=528) POTASSIUM (BEAKER) (test 5.0 meq/L 3.5-5.1 xcre=116) CHLORIDE (BEAKER) (test 101 meq/L 98-107 glwr=477) CO2 (BEAKER) (test 26 meq/L 22-29 jvhu=907) BLOOD UREA NITROGEN 24 mg/dL 7-21 (BEAKER) (test hmzh=152) CREATININE (BEAKER) (test 1.13 mg/dL 0.57-1.25 ufsi=849) GLUCOSE RANDOM (BEAKER) 435 mg/dL 70-105 (test ukwt=149) CALCIUM (BEAKER) (test 8.0 mg/dL 8.4-10.2 jzio=076) EGFR (BEAKER) (test 71 mL/min/1.73 sq m ESTIMATED GFR IS NOT spjl=3504) ACCURATE CREATININE CLEARANCE IN PREDICTING GLOMERULAR FILTRATION RATE. ESTIMATED GFR IS NOT APPLICABLE FOR DIALYSIS PATIENTS. CBC W/PLT COUNT & AUTO [id number] 19:32:00 Test Item Value Reference Range Comments WHITE BLOOD CELL COUNT (BEAKER) (test sunk=918) 24.2 K/ L 3.5-10.5 RED BLOOD CELL COUNT (BEAKER) (test ovwv=406) 3.36 M/ L 3.93-5.22 HEMOGLOBIN (BEAKER) (test atfe=655) 8.9 GM/DL 11.2-15.7 HEMATOCRIT (BEAKER) (test laav=544) 29.1 % 34.1-44.9 MEAN CORPUSCULAR VOLUME (BEAKER) (test dmdl=691) 86.6 fL 79.4-94.8 MEAN CORPUSCULAR HEMOGLOBIN (BEAKER) (test 26.5 pg 25.6-32.2 ecur=423) MEAN CORPUSCULAR HEMOGLOBIN CONC (BEAKER) (test 30.6 GM/DL 32.2-35.5 znat=255) RED CELL DISTRIBUTION WIDTH (BEAKER) (test 16.3 % 11.7-14.4 zlft=536) PLATELET COUNT (BEAKER) (test zwdj=654) 423 K/CU MM 150-450 MEAN PLATELET VOLUME (BEAKER) (test gfqk=514) 10.3 fL 9.4-12.3 NUCLEATED RED BLOOD CELLS (BEAKER) (test 0 /100 WBC 0-0 zffv=108) (CELLAVISION MANUAL DIFF)2019-04-12 19:32:00 Test Item Value Reference Range Comments NEUTROPHILS - REL (CELLAVISION)(BEAKER) (test 97 % mrbn=0617) LYMPHOCYTES - REL (CELLAVISION)(BEAKER) (test 2 % tmow=0354) BANDS - REL (CELLAVISION)(BEAKER) (test 1 % 0-10 xavl=6219) NEUTROPHILS - ABS (CELLAVISION)(BEAKER) (test 23.47 K/ul 1.56-6.13 egko=5151) LYMPHOCYTES - ABS (CELLAVISION)(BEAKER) (test 0.48 K/ul 1.18-3.74 hoix=6482) BANDS - ABS (CELLAVISION)(BEAKER) (test 0.24 K/uL 0.00-0.80 gqdq=6102) TOTAL COUNTED (BEAKER) (test qlzu=9770) 100 WBC MORPHOLOGY (BEAKER) (test ikgb=206) Normal GIANT PLATELETS (BEAKER) (test tfav=904) Present POLYCHROMATOPHILLIC RBCS(BEAKER) (test mioe=563) 1+ few HYPOCHROMIA (BEAKER) (test mash=940) 1+ few POIKILOCYTES (BEAKER) (test lcmr=103) 1+ few BASOPHILIC STIPPLING (BEAKER) (test ocax=549) Present PLATELET CONCENTRATION (CELLAVISION)(BEAKER) Adequate (test pnta=3078) Received comment: User comments: Slide comments:RAD, CHEST, 1 VIEW, NON [id number] 19:21:00Reason for exam:->SHORTNESS OF BREATHShould this be performed at the bedside?->YesFINAL REPORT History: Shortness of breath. FINDINGS: Compared with February 26, 2019, the heart and mediastinum are stable. Diffuse bilateral pulmonary parenchymal abnormality persists, most consistent with cystic fibrosis. There is subtle increased opacity in the right lower lobe, possibly representing superimposed pneumonia. Lungs are otherwise clear. No edema or effusions. No pneumothorax. Right chest port position is stable. Bones are unremarkable. IMPRESSION: 1. Diffuse bilateral pulmonary parenchymal abnormality, most consistent with cystic fibrosis. Additionally, new subtle focal opacity is present in the right lower lobe, possibly representing superimposed pneumonia. Signed: Flip Singer MDReport Verified Date/Time: 04/12/2019 19:21:17 Reading Location: [facility] Diagnostic Imaging Reading Room - [place] [address] POCT-LACTIC ACID, [id number] 18:53:00 Test Item Value Reference Range Comments POC-LACTIC ACID, VENOUS 1.1 mmol/L 0.9-1.7 TESTED AT [place] [address] [facility] (BEAKER) (test wrjh=7963) [place] [id number] FUNGUS CULTURE + [id number] 20:03:00 Test Item Value Reference Range Comments CULTURE (BEAKER) (test No fungus isolated in 28 days aiiy=4662) FUNGUS SMEAR (BEAKER) (test No fungi seen buqj=9347) POCT-GLUCOSE [id number] 16:35:00 Test Item Value Reference Range Comments POC-GLUCOSE METER (BEAKER) 271 mg/dL 70-110 TESTED AT [address] (test pbcc=1488) [place] [address] POCT-GLUCOSE [id number] 11:17:00 Test Item Value Reference Range Comments POC-GLUCOSE METER (BEAKER) 372 mg/dL 70-110 Notified JORDON STAPLETON/TESTED AT [facility] (test scqu=1013) [address] [place] [address] POCT-GLUCOSE [id number] 08:26:00 Test Item Value Reference Range Comments POC-GLUCOSE METER (BEAKER) 264 mg/dL 70-110 TESTED AT [address] (test acvm=5460) [facility] [address] [id number] 07:40:00 Test Item Value Reference Range Comments MAGNESIUM (BEAKER) (test celb=300) 1.3 mg/dL 1.6-2.6 HEPATIC FUNCTION [id number] 07:40:00 Test Item Value Reference Range Comments TOTAL PROTEIN (BEAKER) (test rahy=140) 6.3 gm/dL 6.0-8.3 ALBUMIN (BEAKER) (test qugb=4444) 2.9 g/dL 3.5-5.0 BILIRUBIN TOTAL (BEAKER) (test kfks=549) 0.1 mg/dL 0.2-1.2 BILIRUBIN DIRECT (BEAKER) (test txwn=447) 0.1 mg/dL 0.1-0.5 ALKALINE PHOSPHATASE (BEAKER) (test elcw=706) 147 U/L 40-150 AST (SGOT) (BEAKER) (test kxac=437) 63 U/L 5-34 ALT (SGPT) (BEAKER) (test vgfd=465) 96 U/L 6-55 BUN AND [id number] 07:40:00 Test Item Value Reference Range Comments BLOOD UREA NITROGEN 20 mg/dL 7-21 (BEAKER) (test yoyc=780) CREATININE (BEAKER) (test 0.83 mg/dL 0.57-1.25 adko=237) EGFR (BEAKER) (test 101 mL/min/1.73 sq m ESTIMATED GFR IS NOT ifbm=6059) ACCURATE CREATININE CLEARANCE IN PREDICTING GLOMERULAR FILTRATION RATE. ESTIMATED GFR IS NOT APPLICABLE FOR DIALYSIS PATIENTS. POCT-GLUCOSE [id number] 21:31:00 Test Item Value Reference Range Comments POC-GLUCOSE METER (BEAKER) 311 mg/dL 70-110 Notified JORDON STAPLETON/TESTED AT [facility] (test vbvn=[address] [address] POCT-GLUCOSE [id number] 18:44:00 Test Item Value Reference Range Comments POC-GLUCOSE METER (BEAKER) > mg/dL 70-110 OUTSIDE MEASURING RANGETESTED AT (test hykm=0043) [place] [address] POCT-GLUCOSE [id number] 11:53:00 Test Item Value Reference Range Comments POC-GLUCOSE METER (BEAKER) 95 mg/dL 70-110 TESTED AT [address] (test quae=8360) [place] [address] [id number] 08:39:00 Test Item Value Reference Range Comments PHOSPHORUS (BEAKER) (test xeob=476) 3.5 mg/dL 2.3-4.7 [id number] 08:39:00 Test Item Value Reference Range Comments MAGNESIUM (BEAKER) (test rdpv=006) 1.6 mg/dL 1.6-2.6 BUN AND [id number] 08:39:00 Test Item Value Reference Range Comments BLOOD UREA NITROGEN 28 mg/dL 7-21 (BEAKER) (test jdve=837) CREATININE (BEAKER) (test 0.72 mg/dL 0.57-1.25 qaon=288) EGFR (BEAKER) (test 119 mL/min/1.73 sq m ESTIMATED GFR IS NOT mhit=2038) ACCURATE CREATININE CLEARANCE IN PREDICTING GLOMERULAR FILTRATION RATE. ESTIMATED GFR IS NOT APPLICABLE FOR DIALYSIS PATIENTS. POCT-GLUCOSE [id number] 08:37:00 Test Item Value Reference Range Comments POC-GLUCOSE METER (BEAKER) 159 mg/dL 70-110 TESTED AT [address] (test uqub=5283) [place] [address] POCT-GLUCOSE [id number] 21:42:00 Test Item Value Reference Range Comments POC-GLUCOSE METER (BEAKER) 223 mg/dL 70-110 TESTED AT [address] (test jjur=1567) [place] [address] POCT-GLUCOSE [id number] 18:05:00 Test Item Value Reference Range Comments POC-GLUCOSE METER (BEAKER) > mg/dL 70-110 OUTSIDE MEASURING RANGETESTED AT (test iiii=3795) [place] [address] BUN AND [id number] 17:32:00 Test Item Value Reference Range Comments BLOOD UREA NITROGEN 31 mg/dL 7-21 (BEAKER) (test yzjt=523) CREATININE (BEAKER) (test 1.09 mg/dL 0.57-1.25 jvpl=900) EGFR (BEAKER) (test 74 mL/min/1.73 sq m ESTIMATED GFR IS NOT yyup=6184) ACCURATE CREATININE CLEARANCE IN PREDICTING GLOMERULAR FILTRATION RATE. ESTIMATED GFR IS NOT APPLICABLE FOR DIALYSIS PATIENTS. POCT-GLUCOSE [id number] 12:47:00 Test Item Value Reference Range Comments POC-GLUCOSE METER (BEAKER) 135 mg/dL 70-110 TESTED AT [address] (test uuvt=1696) [place] [address] POCT-GLUCOSE [id number] 12:16:00 Test Item Value Reference Range Comments POC-GLUCOSE METER (BEAKER) 42 mg/dL 70-110 TESTED AT [address] (test xsaa=0553) [place] [address] POCT-GLUCOSE [id number] 10:19:00 Test Item Value Reference Range Comments POC-GLUCOSE METER (BEAKER) 303 mg/dL 70-110 TESTED AT [address] (test ioaf=4301) [place] [address] POCT-GLUCOSE [id number] 08:48:00 Test Item Value Reference Range Comments POC-GLUCOSE METER (BEAKER) 307 mg/dL 70-110 TESTED AT [address] (test lvhc=5799) [place] [address] [id number] 05:02:00 Test Item Value Reference Range Comments MAGNESIUM (BEAKER) (test 1.8 mg/dL 1.6-2.6 Specimen slightly hemolyzed nazw=125) POCT-GLUCOSE [id number] 21:59:00 Test Item Value Reference Range Comments POC-GLUCOSE METER (BEAKER) 191 mg/dL 70-110 TESTED AT [address] (test cbdh=6287) [place] [address] POCT-GLUCOSE [id number] 17:44:00 Test Item Value Reference Range Comments POC-GLUCOSE METER (BEAKER) 222 mg/dL 70-110 TESTED AT [address] (test rikc=9718) [place] [address] POCT-GLUCOSE [id number] 12:19:00 Test Item Value Reference Range Comments POC-GLUCOSE METER (BEAKER) 88 mg/dL 70-110 TESTED AT [facility] [address] (test rsqe=9326) [facility] [address] [id number] 07:28:00 Test Item Value Reference Range Comments MAGNESIUM (BEAKER) (test eehh=478) 1.8 mg/dL 1.6-2.6 COMPREHENSIVE METABOLIC [id number] 07:28:00 Test Item Value Reference Range Comments TOTAL PROTEIN (BEAKER) 5.7 gm/dL 6.0-8.3 (test vabf=860) ALBUMIN (BEAKER) (test 2.6 g/dL 3.5-5.0 znzd=7666) ALKALINE PHOSPHATASE 125 U/L 40-150 (BEAKER) (test zmmv=089) BILIRUBIN TOTAL (BEAKER) 0.1 mg/dL 0.2-1.2 (test mdgv=158) SODIUM (BEAKER) (test 139 meq/L 136-145 rxtb=517) POTASSIUM (BEAKER) (test 4.4 meq/L 3.5-5.1 hibh=289) CHLORIDE (BEAKER) (test 94 meq/L 98-107 wlbc=862) CO2 (BEAKER) (test 39 meq/L 22-29 vewc=028) BLOOD UREA NITROGEN 30 mg/dL 7-21 (BEAKER) (test fkmx=763) CREATININE (BEAKER) (test 0.80 mg/dL 0.57-1.25 ptcj=783) GLUCOSE RANDOM (BEAKER) 296 mg/dL 70-105 (test oeyw=500) CALCIUM (BEAKER) (test 8.0 mg/dL 8.4-10.2 zanq=077) AST (SGOT) (BEAKER) (test 40 U/L 5-34 kjil=219) ALT (SGPT) (BEAKER) (test 123 U/L 6-55 advr=087) EGFR (BEAKER) (test 105 mL/min/1.73 sq ESTIMATED GFR IS NOT kedb=1266) m ACCURATE CREATININE CLEARANCE IN PREDICTING GLOMERULAR FILTRATION RATE. ESTIMATED GFR IS NOT APPLICABLE FOR DIALYSIS PATIENTS. POCT-GLUCOSE [id number] 21:14:00 Test Item Value Reference Range Comments POC-GLUCOSE METER (BEAKER) 179 mg/dL 70-110 TESTED AT [address] (test epmb=5039) [facility] [address] POCT-GLUCOSE [id number] 17:49:00 Test Item Value Reference Range Comments POC-GLUCOSE METER (BEAKER) 331 mg/dL 70-110 TESTED AT [address] (test ucmb=2994) [facility] [address] POCT-GLUCOSE [id number] 11:40:00 Test Item Value Reference Range Comments POC-GLUCOSE METER (BEAKER) 241 mg/dL 70-110 TESTED AT [address] (test hyey=2939) [facility] [address] POCT-GLUCOSE [id number] 08:43:00 Test Item Value Reference Range Comments POC-GLUCOSE METER (BEAKER) 52 mg/dL 70-110 TESTED AT [address] (test cdem=9775) [facility] [address] COMPREHENSIVE METABOLIC [id number] 08:01:00 Test Item Value Reference Range Comments TOTAL PROTEIN (BEAKER) 5.9 gm/dL 6.0-8.3 (test ulan=257) ALBUMIN (BEAKER) (test 2.7 g/dL 3.5-5.0 mlmw=0972) ALKALINE PHOSPHATASE 132 U/L 40-150 (BEAKER) (test bvtb=706) BILIRUBIN TOTAL (BEAKER) 0.1 mg/dL 0.2-1.2 (test oseb=322) SODIUM (BEAKER) (test 139 meq/L 136-145 tzjv=083) POTASSIUM (BEAKER) (test 4.5 meq/L 3.5-5.1 uyce=910) CHLORIDE (BEAKER) (test 96 meq/L 98-107 xrpv=051) CO2 (BEAKER) (test 38 meq/L 22-29 qcpe=004) BLOOD UREA NITROGEN 26 mg/dL 7-21 (BEAKER) (test hqfu=387) CREATININE (BEAKER) (test 0.72 mg/dL 0.57-1.25 sznk=807) GLUCOSE RANDOM (BEAKER) 91 mg/dL 70-105 (test jcsm=525) CALCIUM (BEAKER) (test 7.9 mg/dL 8.4-10.2 jlhi=408) AST (SGOT) (BEAKER) (test 54 U/L 5-34 smbu=789) ALT (SGPT) (BEAKER) (test 149 U/L 6-55 giac=880) EGFR (BEAKER) (test 119 mL/min/1.73 sq ESTIMATED GFR IS NOT klhn=4145) m ACCURATE CREATININE CLEARANCE IN PREDICTING GLOMERULAR FILTRATION RATE. ESTIMATED GFR IS NOT APPLICABLE FOR DIALYSIS PATIENTS. [id number] 07:57:00 Test Item Value Reference Range Comments MAGNESIUM (SIMI) (test voks=151) 1.3 mg/dL 1.6-2.6 U/S, ABDOMINAL, [id number] 03:59:00Abdomen limited area? Add comment if clarification is needed.->LiverReason for exam:->AbnormalLFTsFINAL REPORT INDICATION: Abnormal LFTs COMPARISON: None TECHNIQUE: Real-timetransabdominal crum scale and color Doppler ultrasound of the abdominal right upper quadrant. FINDINGS:Liver: Size: 13.9cm. Echogenicity: Coarsened Masses/lesions: None. Surface Nodularity: None. Intrahepatic bile ducts: Normal. Common bile duct: 0.3 cm. MPV: 1.3cm. Gallbladder: Stones: None. Sludge: None. Wall thickness: 0.3 cm. The gallbladder lumen is nondistended. Pericholecystic fluid: None. Sonographic Isbell's sign: No sonographic Isbell's sign. Pancreas: Head and uncinate process: Unremarkable. Body and tail: Not well-seen. Rightkidney: Size: 10.1 x 4.4 x 4.9 cm. Renal cortical thickness is 1.1 cm. Parenchyma: Normal echogenicity. No cysts. No stones. Hydronephrosis : None. Ascites: None. Regional Vasculature: The visible abdominal aorta, IVC and hepatic veins are patent. Additional Findings: None. IMPRESSION: Unremarkable right upper quadrant ultrasound. Signed: Rosa M Freitas MDReport Verified Date/Time: 03/08/2019 03:59:22 Reading Location: [facility] C013V Neuro Reading Room Electronically signed by: YESSI FREITAS MD on 2018 03:59 AMPOCT-GLUCOSE [id number] 21:26:00 Test Item Value Reference Range Comments POC-GLUCOSE METER (SIMI) 275 mg/dL 70-110 TESTED AT [address] (test sqev=9624) [place] [address] HEPATITIS PANEL, [id number] 19:14:00 Test Item Value Reference Range Comments HEPATITIS A IGM ANTIBODY (BEAKER) (test Nonreactive Nonreactive vpec=870) HEPATITIS B CORE IGM ANTIBODY (BEAKER) (test Nonreactive Nonreactive jijo=959) HEPATITIS C ANTIBODY (BEAKER) (test ecnv=896) Nonreactive Nonreactive HEPATITIS B SURFACE ANTIGEN (2) (BEAKER) (test Nonreactive Nonreactive sszc=2059) [id number] 18:18:00 Test Item Value Reference Range Comments POTASSIUM (BEAKER) (test wucq=748) 4.9 meq/L 3.5-5.1 POCT-GLUCOSE [id number] 16:48:00 Test Item Value Reference Range Comments POC-GLUCOSE METER (BEAKER) 143 mg/dL 70-110 TESTED AT [address] (test wbox=3808) [place] [address] POCT-GLUCOSE [id number] 12:30:00 Test Item Value Reference Range Comments POC-GLUCOSE METER (BEAKER) 142 mg/dL 70-110 TESTED AT [address] (test qhef=9018) [place] [address] POCT-GLUCOSE [id number] 11:58:00 Test Item Value Reference Range Comments POC-GLUCOSE METER (BEAKER) 25 mg/dL 70-110 Notified JORDON STAPLETON/TESTED AT [facility] (test duyg=5267) [address] [place] [address] POCT-GLUCOSE [id number] 11:34:00 Test Item Value Reference Range Comments POC-GLUCOSE METER (BEAKER) 50 mg/dL 70-110 TESTED AT [address] (test vwqf=6533) [place] [address] CREATINE KINASE (CK)2019-03-07 11:09:00 Test Item Value Reference Range Comments CREATINE KINASE TOTAL (BEAKER) (test wlak=076) 90 U/L 29-200 POCT-GLUCOSE [id number] 08:07:00 Test Item Value Reference Range Comments POC-GLUCOSE METER (BEAKER) 376 mg/dL 70-110 Notified JORDON STAPLETON/TESTED AT [facility] (test pxcp=2992) [address] [place] [address] COMPREHENSIVE METABOLIC [id number] 07:23:00 Test Item Value Reference Range Comments TOTAL PROTEIN (BEAKER) 6.1 gm/dL 6.0-8.3 (test xksj=271) ALBUMIN (BEAKER) (test 2.7 g/dL 3.5-5.0 ytlp=9072) ALKALINE PHOSPHATASE 140 U/L 40-150 (BEAKER) (test zwaz=933) BILIRUBIN TOTAL (BEAKER) 0.1 mg/dL 0.2-1.2 (test tbdk=081) SODIUM (BEAKER) (test 138 meq/L 136-145 jnhb=972) POTASSIUM (BEAKER) (test 6.0 meq/L 3.5-5.1 noio=063) CHLORIDE (BEAKER) (test 95 meq/L 98-107 wyte=261) CO2 (BEAKER) (test 35 meq/L 22-29 rydv=460) BLOOD UREA NITROGEN 33 mg/dL 7-21 (BEAKER) (test wbfm=843) CREATININE (BEAKER) (test 1.00 mg/dL 0.57-1.25 judm=190) GLUCOSE RANDOM (BEAKER) 483 mg/dL 70-105 (test bnlu=402) CALCIUM (BEAKER) (test 7.9 mg/dL 8.4-10.2 mzgc=604) AST (SGOT) (BEAKER) (test 130 U/L 5-34 dcyz=999) ALT (SGPT) (BEAKER) (test 217 U/L 6-55 gxws=478) EGFR (BEAKER) (test 81 mL/min/1.73 sq m ESTIMATED GFR IS NOT zozg=3541) ACCURATE CREATININE CLEARANCE IN PREDICTING GLOMERULAR FILTRATION RATE. ESTIMATED GFR IS NOT APPLICABLE FOR DIALYSIS PATIENTS. [id number] 07:04:00 Test Item Value Reference Range Comments PHOSPHORUS (BEAKER) (test paqh=350) 5.3 mg/dL 2.3-4.7 [id number] 07:04:00 Test Item Value Reference Range Comments MAGNESIUM (BEAKER) (test lzfz=980) 2.0 mg/dL 1.6-2.6 CBC W/PLT COUNT & AUTO [id number] 06:44:00 Test Item Value Reference Range Comments WHITE BLOOD CELL COUNT (BEAKER) (test ioes=278) 16.2 K/ L 3.5-10.5 RED BLOOD CELL COUNT (BEAKER) (test pspt=969) 3.50 M/ L 3.93-5.22 HEMOGLOBIN (BEAKER) (test lycx=223) 9.4 GM/DL 11.2-15.7 HEMATOCRIT (BEAKER) (test ldst=273) 31.4 % 34.1-44.9 MEAN CORPUSCULAR VOLUME (BEAKER) (test vfrz=356) 89.7 fL 79.4-94.8 MEAN CORPUSCULAR HEMOGLOBIN (BEAKER) (test 26.9 pg 25.6-32.2 ldpt=328) MEAN CORPUSCULAR HEMOGLOBIN CONC (BEAKER) (test 29.9 GM/DL 32.2-35.5 dhjn=191) RED CELL DISTRIBUTION WIDTH (BEAKER) (test 18.3 % 11.7-14.4 cjlx=577) PLATELET COUNT (BEAKER) (test eezg=685) 519 K/CU MM 150-450 MEAN PLATELET VOLUME (BEAKER) (test cdvs=425) 11.4 fL 9.4-12.3 NUCLEATED RED BLOOD CELLS (BEAKER) (test 0 /100 WBC 0-0 ikws=330) NEUTROPHILS RELATIVE PERCENT (BEAKER) (test 90 % fdgt=903) LYMPHOCYTES RELATIVE PERCENT (BEAKER) (test 4 % pjrg=077) MONOCYTES RELATIVE PERCENT (BEAKER) (test 4 % nzql=834) EOSINOPHILS RELATIVE PERCENT (BEAKER) (test 0 % hszg=305) BASOPHILS RELATIVE PERCENT (BEAKER) (test 0 % dgtb=677) NEUTROPHILS ABSOLUTE COUNT (BEAKER) (test 14.59 K/ L 1.56-6.13 ucfl=672) LYMPHOCYTES ABSOLUTE COUNT (BEAKER) (test 0.63 K/ L 1.18-3.74 usdh=450) MONOCYTES ABSOLUTE COUNT (BEAKER) (test 0.67 K/ L 0.24-0.36 qgkv=932) EOSINOPHILS ABSOLUTE COUNT (BEAKER) (test 0.00 K/ L 0.04-0.36 bwvv=234) BASOPHILS ABSOLUTE COUNT (BEAKER) (test 0.01 K/ L 0.01-0.08 ntnp=433) IMMATURE GRANULOCYTES-RELATIVE PERCENT (BEAKER) 2 % 0-1 (test ahqq=5866) POCT-GLUCOSE [id number] 21:22:00 Test Item Value Reference Range Comments POC-GLUCOSE METER (BEAKER) 74 mg/dL 70-110 TESTED AT [address] (test bopp=0359) [place] [id number] POCT-GLUCOSE [id number] 18:21:00 Test Item Value Reference Range Comments POC-GLUCOSE METER (BEAKER) 166 mg/dL 70-110 TESTED AT [address] (test sgah=8149) [place] [address] POCT-GLUCOSE [id number] 12:56:00 Test Item Value Reference Range Comments POC-GLUCOSE METER (BEAKER) 258 mg/dL 70-110 TESTED AT [address] (test ysgz=8929) [place] [address] POTASSIUM-STAT [id number] 09:11:00 Test Item Value Reference Range Comments POTASSIUM (BEAKER) (test wzxt=562) 5.9 meq/L 3.6-5.5 POCT-GLUCOSE [id number] 09:07:00 Test Item Value Reference Range Comments POC-GLUCOSE METER (BEAKER) 278 mg/dL 70-110 TESTED AT [address] (test kvau=7182) [place] [address] [id number] 07:43:00 Test Item Value Reference Range Comments POTASSIUM (BEAKER) (test mgog=813) 6.1 meq/L 3.5-5.1 [id number] 07:38:00 Test Item Value Reference Range Comments MAGNESIUM (BEAKER) (test lkis=659) 1.1 mg/dL 1.6-2.6 [id number] 07:38:00 Test Item Value Reference Range Comments BLOOD UREA NITROGEN (BEAKER) (test rnon=094) 25 mg/dL 7-21 [id number] 07:38:00 Test Item Value Reference Range Comments CREATININE (BEAKER) (test 0.78 mg/dL 0.57-1.25 lkzi=464) EGFR (BEAKER) (test 108 mL/min/1.73 sq m ESTIMATED GFR IS NOT irni=9387) ACCURATE CREATININE CLEARANCE IN PREDICTING GLOMERULAR FILTRATION RATE. ESTIMATED GFR IS NOT APPLICABLE FOR DIALYSIS PATIENTS. POCT-GLUCOSE [id number] 01:39:00 Test Item Value Reference Range Comments POC-GLUCOSE METER (BEAKER) 98 mg/dL 70-110 TESTED AT [address] (test sjde=3407) [facility] [address] POCT-GLUCOSE [id number] 01:39:00 Test Item Value Reference Range Comments POC-GLUCOSE METER (BEAKER) 63 mg/dL 70-110 TESTED AT [address] (test booz=1727) [facility] [address] POCT-GLUCOSE [id number] 21:42:00 Test Item Value Reference Range Comments POC-GLUCOSE METER (BEAKER) 96 mg/dL 70-110 TESTED AT [address] (test bwsk=7317) [facility] [address] POCT-GLUCOSE [id number] 17:58:00 Test Item Value Reference Range Comments POC-GLUCOSE METER (BEAKER) 266 mg/dL 70-110 TESTED AT [address] (test oqyk=4917) [facility] [address] POCT-GLUCOSE [id number] 13:54:00 Test Item Value Reference Range Comments POC-GLUCOSE METER (BEAKER) 239 mg/dL 70-110 TESTED AT [address] (test aqkd=7296) [facility] [address] POCT-GLUCOSE [id number] 12:40:00 Test Item Value Reference Range Comments POC-GLUCOSE METER (BEAKER) 149 mg/dL 70-110 TESTED AT [address] (test lgyq=1499) [facility] [address] POCT-GLUCOSE [id number] 11:48:00 Test Item Value Reference Range Comments POC-GLUCOSE METER (BEAKER) < mg/dL 70-110 OUTSIDE MEASURING RANGETESTED AT (test izof=7100) [address] [address] POCT-GLUCOSE [id number] 08:28:00 Test Item Value Reference Range Comments POC-GLUCOSE METER (BEAKER) 232 mg/dL 70-110 TESTED AT [address] (test pxya=2417) [facility] [address] [id number] 07:14:00 Test Item Value Reference Range Comments POTASSIUM (BEAKER) (test iqxe=184) 5.3 meq/L 3.5-5.1 [id number] 07:14:00 Test Item Value Reference Range Comments MAGNESIUM (BEAKER) (test wikm=059) 1.7 mg/dL 1.6-2.6 [id number] 07:14:00 Test Item Value Reference Range Comments BLOOD UREA NITROGEN (BEAKER) (test hjxi=637) 30 mg/dL 7-21 [id number] 07:14:00 Test Item Value Reference Range Comments CREATININE (BEAKER) (test 0.78 mg/dL 0.57-1.25 ajcg=778) EGFR (BEAKER) (test 108 mL/min/1.73 sq m ESTIMATED GFR IS NOT lrus=0885) ACCURATE CREATININE CLEARANCE IN PREDICTING GLOMERULAR FILTRATION RATE. ESTIMATED GFR IS NOT APPLICABLE FOR DIALYSIS PATIENTS. POCT-GLUCOSE [id number] 21:28:00 Test Item Value Reference Range Comments POC-GLUCOSE METER (BEAKER) 334 mg/dL 70-110 Will Repeat Test/TESTED AT (test nxtp=7730) [place] [id number] POCT-GLUCOSE [id number] 19:23:00 Test Item Value Reference Range Comments POC-GLUCOSE METER (BEAKER) 362 mg/dL 70-110 TESTED AT [address] (test qaxe=0349) [place] [address] POCT-GLUCOSE [id number] 17:21:00 Test Item Value Reference Range Comments POC-GLUCOSE METER (BEAKER) > mg/dL 70-110 OUTSIDE MEASURING RANGETESTED AT (test tdcm=5325) [address] [address] POCT-GLUCOSE [id number] 12:10:00 Test Item Value Reference Range Comments POC-GLUCOSE METER (BEAKER) 75 mg/dL 70-110 TESTED AT [address] (test btie=9412) [place] [address] POCT-GLUCOSE [id number] 11:26:00 Test Item Value Reference Range Comments POC-GLUCOSE METER (BEAKER) 36 mg/dL 70-110 TESTED AT [address] (test xevb=8053) [place] [address] POCT-GLUCOSE [id number] 08:13:00 Test Item Value Reference Range Comments POC-GLUCOSE METER (BEAKER) 154 mg/dL 70-110 TESTED AT [address] (test jdxb=7257) [place] [address] [id number] 07:24:00 Test Item Value Reference Range Comments MAGNESIUM (BEAKER) (test qnvr=171) 1.2 mg/dL 1.6-2.6 [id number] 07:24:00 Test Item Value Reference Range Comments BLOOD UREA NITROGEN (BEAKER) (test wdkb=781) 23 mg/dL 7-21 [id number] 07:24:00 Test Item Value Reference Range Comments CREATININE (BEAKER) (test 0.72 mg/dL 0.57-1.25 okfs=963) EGFR (BEAKER) (test 119 mL/min/1.73 sq m ESTIMATED GFR IS NOT rylw=9085) ACCURATE CREATININE CLEARANCE IN PREDICTING GLOMERULAR FILTRATION RATE. ESTIMATED GFR IS NOT APPLICABLE FOR DIALYSIS PATIENTS. POCT-GLUCOSE [id number] 21:21:00 Test Item Value Reference Range Comments POC-GLUCOSE METER (SIMI) 239 mg/dL 70-110 TESTED AT [facility] [address] [place] [address] (test owpp=0247) [facility] [address] POCT-GLUCOSE [id number] 17:47:00 Test Item Value Reference Range Comments POC-GLUCOSE METER ([facility] 258 mg/dL 70-110 TESTED AT [address] (test kkep=9324) [facility] [address] CF RESPIRATORY [id number] 16:52:00 Test Item Value Reference Range Comments CULTURE (AKER) (test PSEUDOMONAS 4+ Pseudomonas onxf=6783) AERUGINOSA aeruginosa (MUCOID-PHENOTYPE) (Mucoid-phenotype) Amikacin (test code=1) Susceptible 0-16 , Resistant <0 or >16 Aztreonam (test Susceptible 0-8 , code=32) Resistant <0 or >8 Cefepime (test code=51) Susceptible 0-8 , Resistant <0 or >8 Ceftazidime (test Susceptible 0-8 , code=27) Resistant <0 or >8 Ciprofloxacin (test Susceptible 0-0.5 , code=7) Resistant <0 or >.5 Gentamicin (test Susceptible 0-4 , code=18) Resistant <0 or >4 Levofloxacin (test Susceptible 0-1 , code=22) Resistant <0 or >1 Meropenem (test Susceptible 0-2 , code=34) Resistant <0 or >2 Piperacillin (test Susceptible 0-16 , code=24) Resistant <0 or >16 Piperacillin + Susceptible 0-16 , Tazobactam (test Resistant <0 or >16 code=29) Tobramycin (test Susceptible 0-4 , code=25) Resistant <0 or >4 CULTURE (BEAKER) (test PSEUDOMONAS 4+ Pseudomonas lrsn=6204) AERUGINOSA aeruginosaof a second type Amikacin (test code=1) Susceptible 0-16 , Resistant <0 or >16 Aztreonam (test Susceptible 0-8 , code=32) Resistant <0 or >8 Cefepime (test code=51) Susceptible 0-8 , Resistant <0 or >8 Ceftazidime (test Susceptible 0-8 , code=27) Resistant <0 or >8 Ciprofloxacin (test Susceptible 0-0.5 , code=7) Resistant <0 or >.5 Gentamicin (test Susceptible 0-4 , code=18) Resistant <0 or >4 Levofloxacin (test Susceptible 0-1 , code=22) Resistant <0 or >1 Meropenem (test Susceptible 0-2 , code=34) Resistant <0 or >2 Piperacillin (test Susceptible 0-16 , code=24) Resistant <0 or >16 Piperacillin + Susceptible 0-16 , Tazobactam (test Resistant <0 or >16 code=29) Tobramycin (test Susceptible 0-4 , code=25) Resistant <0 or >4 CULTURE (BEAKER) (test PSEUDOMONAS 2+ Pseudomonas dbga=0789) AERUGINOSA aeruginosaof a third type Amikacin (test code=1) Susceptible 0-16 , Resistant <0 or >16 Aztreonam (test Susceptible 0-8 , code=32) Resistant <0 or >8 Cefepime (test code=51) Susceptible 0-8 , Resistant <0 or >8 Ceftazidime (test Susceptible 0-8 , code=27) Resistant <0 or >8 Ciprofloxacin (test Susceptible 0-0.5 , code=7) Resistant <0 or >.5 Gentamicin (test Susceptible 0-4 , code=18) Resistant <0 or >4 Levofloxacin (test Susceptible 0-1 , code=22) Resistant <0 or >1 Meropenem (test Susceptible 0-2 , code=34) Resistant <0 or >2 Piperacillin (test Susceptible 0-16 , code=24) Resistant <0 or >16 Piperacillin + Susceptible 0-16 , Tazobactam (test Resistant <0 or >16 code=29) Tobramycin (test Susceptible 0-4 , code=25) Resistant <0 or >4 2+ Normal respiratory derick presentBLOOD [id number] 12:01:00 Test Item Value Reference Range Comments CULTURE (BEAKER) (test ffpa=3350) No growth in 5 days BLOOD [id number] 12:01:00 Test Item Value Reference Range Comments CULTURE (BEAKER) (test apmq=7142) No growth in 5 days POCT-GLUCOSE [id number] 11:37:00 Test Item Value Reference Range Comments POC-GLUCOSE METER (BEAKER) 301 mg/dL 70-110 TESTED AT [address] (test slxs=8107) [facility] [address] POCT-GLUCOSE [id number] 09:15:00 Test Item Value Reference Range Comments POC-GLUCOSE METER (BEAKER) 243 mg/dL 70-110 TESTED AT [address] (test euho=1223) [facility] [address] POCT-GLUCOSE [id number] 22:09:00 Test Item Value Reference Range Comments POC-GLUCOSE METER (BEAKER) 222 mg/dL 70-110 TESTED AT [address] (test vnic=1939) [facility] [address] POCT-GLUCOSE [id number] 17:13:00 Test Item Value Reference Range Comments POC-GLUCOSE METER (BEAKER) 294 mg/dL 70-110 TESTED AT [address] (test pkpq=3372) [place] [address] POCT-GLUCOSE [id number] 13:17:00 Test Item Value Reference Range Comments POC-GLUCOSE METER (BEAKER) 155 mg/dL 70-110 TESTED AT [address] (test vmjm=1812) [place] [address] [id number] 10:11:00 Test Item Value Reference Range Comments GLUCOSE RANDOM (BEAKER) (test zuxl=571) 75 mg/dL 70-105 [id number] 09:26:00 Test Item Value Reference Range Comments MAGNESIUM (BEAKER) (test 1.3 mg/dL 1.6-2.6 Specimen slightly hemolyzed vyzw=641) [id number] 09:26:00 Test Item Value Reference Range Comments BLOOD UREA NITROGEN (BEAKER) (test nglt=604) 13 mg/dL 7-21 [id number] 09:26:00 Test Item Value Reference Range Comments CREATININE (BEAKER) (test 0.71 mg/dL 0.57-1.25 Specimen slightly suys=417) hemolyzed EGFR (BEAKER) (test 121 mL/min/1.73 sq m ESTIMATED GFR IS NOT petq=6595) ACCURATE CREATININE CLEARANCE IN PREDICTING GLOMERULAR FILTRATION RATE. ESTIMATED GFR IS NOT APPLICABLE FOR DIALYSIS PATIENTS. POCT-GLUCOSE [id number] 08:46:00 Test Item Value Reference Range Comments POC-GLUCOSE METER (BEAKER) 89 mg/dL 70-110 TESTED AT [address] (test myvx=5205) [place] [id number] POCT-GLUCOSE [id number] 22:16:00 Test Item Value Reference Range Comments POC-GLUCOSE METER (BEAKER) 325 mg/dL 70-110 Verify with Lab draw/TESTED AT (test vrqi=3177) [address] [address] POCT-GLUCOSE [id number] 18:08:00 Test Item Value Reference Range Comments POC-GLUCOSE METER (BEAKER) 423 mg/dL 70-110 TESTED AT [address] (test zxuj=0420) [place] [address] POCT-GLUCOSE [id number] 11:52:00 Test Item Value Reference Range Comments POC-GLUCOSE METER (BEAKER) > mg/dL 70-110 OUTSIDE MEASURING RANGENotified RN (test vspm=0701) MD/TESTED AT [address] [address] [id number] 09:24:00 Test Item Value Reference Range Comments MAGNESIUM (BEAKER) (test wlrg=898) 1.1 mg/dL 1.6-2.6 [id number] 09:24:00 Test Item Value Reference Range Comments BLOOD UREA NITROGEN (BEAKER) (test vgeq=428) 18 mg/dL 7-21 [id number] 09:24:00 Test Item Value Reference Range Comments CREATININE (BEAKER) (test 0.84 mg/dL 0.57-1.25 fvgr=901) EGFR (BEAKER) (test 99 mL/min/1.73 sq m ESTIMATED GFR IS NOT osdb=4283) ACCURATE CREATININE CLEARANCE IN PREDICTING GLOMERULAR FILTRATION RATE. ESTIMATED GFR IS NOT APPLICABLE FOR DIALYSIS PATIENTS. POCT-GLUCOSE [id number] 08:38:00 Test Item Value Reference Range Comments POC-GLUCOSE METER (BEAKER) 382 mg/dL 70-110 Notified RN MD/TESTED AT [facility] (test oykb=9398) [address] [place], [place] [id number] POCT-GLUCOSE [id number] 21:23:00 Test Item Value Reference Range Comments POC-GLUCOSE METER (BEAKER) > mg/dL 70-110 OUTSIDE MEASURING RANGENotified RN (test zxca=5362) MD/TESTED AT [place] [address] POCT-GLUCOSE [id number] 17:38:00 Test Item Value Reference Range Comments POC-GLUCOSE METER (BEAKER) 315 mg/dL 70-110 Notified RN MD/TESTED AT [facility] (test wvte=2857) [address] [place] [address] [id number] 12:28:00 Test Item Value Reference Range Comments MAGNESIUM (BEAKER) (test tjjw=245) 1.2 mg/dL 1.6-2.6 POCT-GLUCOSE [id number] 12:11:00 Test Item Value Reference Range Comments POC-GLUCOSE METER (BEAKER) 371 mg/dL 70-110 TESTED AT [address] (test rwuj=3102) [place] [address] SPIN/CONCENTRATION [id number] 12:09:00 Test Item Value Reference Range Comments CONCENTRATION CHARGED (BEAKER) (test xccs=6198) Done POCT-GLUCOSE [id number] 08:51:00 Test Item Value Reference Range Comments POC-GLUCOSE METER (BEAKER) 403 mg/dL 70-110 Notified RN MD/TESTED AT [facility] (test nefv=0901) [address] [place] [address] [id number] 06:48:00 Test Item Value Reference Range Comments BLOOD UREA NITROGEN (BEAKER) (test ghnl=573) 20 mg/dL 7-21 [id number] 06:48:00 Test Item Value Reference Range Comments CREATININE (BEAKER) (test 1.05 mg/dL 0.57-1.25 prev=085) EGFR (BEAKER) (test 77 mL/min/1.73 sq m ESTIMATED GFR IS NOT tqkf=0807) ACCURATE CREATININE CLEARANCE IN PREDICTING GLOMERULAR FILTRATION RATE. ESTIMATED GFR IS NOT APPLICABLE FOR DIALYSIS PATIENTS. POCT-GLUCOSE [id number] 23:38:00 Test Item Value Reference Range Comments POC-GLUCOSE METER (BEAKER) 348 mg/dL 70-110 Notified JORDON STAPLETON/TESTED AT [facility] (test xovx=8034) [address] [place] [address] POCT-GLUCOSE [id number] 21:07:00 Test Item Value Reference Range Comments POC-GLUCOSE METER (BEAKER) 387 mg/dL 70-110 Notified JORDON STAPLETON/TESTED AT [facility] (test lqfn=5148) [address] [place] [address] POCT-GLUCOSE [id number] 18:15:00 Test Item Value Reference Range Comments POC-GLUCOSE METER (BEAKER) 495 mg/dL 70-110 TESTED AT [address] (test ljjo=0424) [facility] [address] HEMOGLOBIN [id number] 17:06:00 Test Item Value Reference Range Comments HEMOGLOBIN A1C (BEAKER) (test hvec=906) 12.4 % 4.3-6.1 POCT-GLUCOSE [id number] 15:56:00 Test Item Value Reference Range Comments POC-GLUCOSE METER (BEAKER) > mg/dL 70-110 OUTSIDE MEASURING RANGETESTED AT (test xnro=7120) [address] [address] RESPIRATORY PANEL [id number] 14:33:00 Test Item Value Reference Range Comments HUMAN METAPNEUMOVIRUS (BEAKER) (test Not detected Not detected, Equivocal xjfc=2337) RHINOVIRUS (BEAKER) (test ccgh=6637) Not detected Not detected, Equivocal INFLUENZA A (BEAKER) (test biih=4809) Not detected Not detected, Equivocal INFLUENZA A (NO SUBTYPE) (test Not detected, Equivocal ratt=1606) INFLUENZA A SUBTYPE H1 (BEAKER) (test Not detected, Equivocal ffto=4588) INFLUENZA A SUBTYPE H3 (BEAKER) (test Not detected, Equivocal ldhl=8766) INFLUENZA A SUBTYPE H1-2009 (BEAKER) Not detected, Equivocal (test tmwy=9533) INFLUENZA B (BEAKER) (test emip=0023) Not detected Not detected, Equivocal RESPIRATORY SYNCYTIAL VIRUS (BEAKER) Not detected Not detected, Equivocal (test nwmc=8336) PARAINFLUENZA VIRUS 1 (BEAKER) (test Not detected Not detected, Equivocal zjsr=8671) PARAINFLUENZA VIRUS 2 (BEAKER) (test Not detected Not detected, Equivocal roge=0260) PARAINFLUENZA VIRUS 3 (BEAKER) (test Not detected Not detected, Equivocal uotw=0467) PARAINFLUENZA VIRUS 4 (BEAKER) (test Not detected Not detected, Equivocal eejt=2303) ADENOVIRUS (BEAKER) (test bpvb=4369) Not detected Not detected, Equivocal CORONAVIRUS 229E (BEAKER) (test Not detected Not detected, Equivocal xfui=9962) CORONAVIRUS HKU1 (BEAKER) (test Not detected Not detected, Equivocal yyhj=5404) CORONAVIRUS NL63 (BEAKER) (test Not detected Not detected, Equivocal qfac=6754) CORONAVIRUS OC43 (BEAKER) (test Not detected Not detected, Equivocal fzxb=9125) BORDETELLA PERTUSSIS (BEAKER) (test Not detected Not detected, Equivocal uqkk=9946) CHLAMYDOPHILA PNEUMONIAE (BEAKER) (test Not detected Not detected, Equivocal kbul=2504) MYCOPLASMA PNEUMONIAE (BEAKER) (test Not detected Not detected, Equivocal veqp=6105) Other viruses and bacteria not targeted by this PCR panel cannot be excluded; therefore clinical correlation and follow up of serology, culture results, and other molecular studies is required. The results are not intended to be used as the sole means for clinical diagnosis or patient management decisions. This sample was tested at the [facility] Molecular Diagnostics Laboratory using the [employer] Respiratory Panel. It is FDA cleared and has been verified and approved by the [facility] Molecular Diagnostics Laboratory for clinical use on nasal swab specimens.POCT-GLUCOSE [id number] 11:59:00 Test Item Value Reference Range Comments POC-GLUCOSE METER (BEAKER) > mg/dL 70-110 OUTSIDE MEASURING RANGETESTED AT (test pzhw=1635) [facility] [address] [facility] [address] [id number] 08:16:00 Test Item Value Reference Range Comments MAGNESIUM (BEAKER) (test ojji=618) 1.3 mg/dL 1.6-2.6 [id number] 08:16:00 Test Item Value Reference Range Comments BLOOD UREA NITROGEN (BEAKER) (test arhq=028) 16 mg/dL 7-21 [id number] 08:16:00 Test Item Value Reference Range Comments CREATININE (BEAKER) (test 1.20 mg/dL 0.57-1.25 ebqc=875) EGFR (BEAKER) (test 66 mL/min/1.73 sq m ESTIMATED GFR IS NOT wtmr=0406) ACCURATE CREATININE CLEARANCE IN PREDICTING GLOMERULAR FILTRATION RATE. ESTIMATED GFR IS NOT APPLICABLE FOR DIALYSIS PATIENTS. POCT-GLUCOSE [id number] 08:06:00 Test Item Value Reference Range Comments POC-GLUCOSE METER (BEAKER) > mg/dL 70-110 OUTSIDE MEASURING RANGETESTED AT (test bgkl=9172) [facility] [address] [facility] [address] LACTIC ACID, [id number] 07:59:00 Test Item Value Reference Range Comments LACTATE BLOOD VENOUS (2) (BEAKER) (test 1.5 mmol/L 0.5-2.2 yyru=6427) POCT-GLUCOSE [id number] 21:27:00 Test Item Value Reference Range Comments POC-GLUCOSE METER (BEAKER) 454 mg/dL 70-110 Procedure Error/TESTED AT [facility] (test dhjv=5500) [address] [facility] [address] POCT-GLUCOSE [id number] 18:12:00 Test Item Value Reference Range Comments POC-GLUCOSE METER (BEAKER) 121 mg/dL 70-110 TESTED AT [address] (test gbgw=1102) [facility] [address] SCREEN, [id number] 16:18:00 Test Item Value Reference Range Comments TEST URINE (BEAKER) (test vlbk=629) Negative [id number] 13:03:00 Test Item Value Reference Range Comments PHOSPHORUS (BEAKER) (test 2.8 mg/dL 2.3-4.7 Specimen slightly hemolyzed hmmz=636) COMPREHENSIVE METABOLIC [id number] 13:03:00 Test Item Value Reference Range Comments TOTAL PROTEIN (BEAKER) 6.9 gm/dL 6.0-8.3 Specimen slightly (test uffh=855) hemolyzed ALBUMIN (BEAKER) (test 2.3 g/dL 3.5-5.0 Specimen slightly yazp=2739) hemolyzed ALKALINE PHOSPHATASE 139 U/L 40-150 (BEAKER) (test uyiy=550) BILIRUBIN TOTAL (BEAKER) 0.2 mg/dL 0.2-1.2 Specimen slightly (test ccyl=071) hemolyzed SODIUM (BEAKER) (test 139 meq/L 136-145 cdiw=725) POTASSIUM (BEAKER) (test 3.5 meq/L 3.5-5.1 Specimen slightly vbgq=370) hemolyzed CHLORIDE (BEAKER) (test 98 meq/L 98-107 ytiu=185) CO2 (BEAKER) (test 33 meq/L 22-29 ukgc=894) BLOOD UREA NITROGEN 6 mg/dL 7-21 (BEAKER) (test gcbh=297) CREATININE (BEAKER) (test 0.77 mg/dL 0.57-1.25 Specimen slightly cibd=943) hemolyzed GLUCOSE RANDOM (BEAKER) 240 mg/dL 70-105 (test rvct=954) CALCIUM (BEAKER) (test 8.7 mg/dL 8.4-10.2 tqsw=809) AST (SGOT) (BEAKER) (test 21 U/L 5-34 Specimen slightly bmxk=717) hemolyzed ALT (SGPT) (BEAKER) (test 6 U/L 6-55 Specimen slightly rlkv=665) hemolyzed EGFR (BEAKER) (test 110 mL/min/1.73 sq ESTIMATED GFR IS NOT ldls=6163) m ACCURATE CREATININE CLEARANCE IN PREDICTING GLOMERULAR FILTRATION RATE. ESTIMATED GFR IS NOT APPLICABLE FOR DIALYSIS PATIENTS. GAMMA GLUTAMYL TRANSFERASE (GGT)2019-02-26 13:03:00 Test Item Value Reference Range Comments GAMMA GLUTAMYL TRANSFERASE 23 U/L 9-64 Specimen slightly hemolyzed (BEAKER) (test ossa=876) CBC W/PLT COUNT & AUTO [id number] 12:51:00 Test Item Value Reference Range Comments WHITE BLOOD CELL COUNT (BEAKER) (test zuna=007) 13.4 K/ L 3.5-10.5 RED BLOOD CELL COUNT (BEAKER) (test kgvf=764) 3.62 M/ L 3.93-5.22 HEMOGLOBIN (BEAKER) (test aabk=093) 9.4 GM/DL 11.2-15.7 HEMATOCRIT (BEAKER) (test pceo=216) 31.4 % 34.1-44.9 MEAN CORPUSCULAR VOLUME (BEAKER) (test ekvc=343) 86.7 fL 79.4-94.8 MEAN CORPUSCULAR HEMOGLOBIN (BEAKER) (test 26.0 pg 25.6-32.2 vpcl=325) MEAN CORPUSCULAR HEMOGLOBIN CONC (BEAKER) (test 29.9 GM/DL 32.2-35.5 hbxq=046) RED CELL DISTRIBUTION WIDTH (BEAKER) (test 15.3 % 11.7-14.4 ekcp=091) PLATELET COUNT (BEAKER) (test xljc=249) 330 K/CU MM 150-450 MEAN PLATELET VOLUME (BEAKER) (test fmnm=218) 12.1 fL 9.4-12.3 NUCLEATED RED BLOOD CELLS (BEAKER) (test 0 /100 WBC 0-0 gxgf=690) NEUTROPHILS RELATIVE PERCENT (BEAKER) (test 81 % phum=678) LYMPHOCYTES RELATIVE PERCENT (BEAKER) (test 10 % rify=249) MONOCYTES RELATIVE PERCENT (BEAKER) (test 6 % uluw=572) EOSINOPHILS RELATIVE PERCENT (BEAKER) (test 2 % dwpi=310) BASOPHILS RELATIVE PERCENT (BEAKER) (test 0 % pjuk=579) NEUTROPHILS ABSOLUTE COUNT (BEAKER) (test 10.85 K/ L 1.56-6.13 siwa=342) LYMPHOCYTES ABSOLUTE COUNT (BEAKER) (test 1.35 K/ L 1.18-3.74 wzub=706) MONOCYTES ABSOLUTE COUNT (BEAKER) (test 0.78 K/ L 0.24-0.36 wctu=789) EOSINOPHILS ABSOLUTE COUNT (BEAKER) (test 0.31 K/ L 0.04-0.36 lete=473) BASOPHILS ABSOLUTE COUNT (BEAKER) (test 0.04 K/ L 0.01-0.08 wrep=448) IMMATURE GRANULOCYTES-RELATIVE PERCENT (BEAKER) 1 % 0-1 (test nkcr=9816) POCT-GLUCOSE [id number] 12:25:00 Test Item Value Reference Range Comments POC-GLUCOSE METER (BEAKER) 233 mg/dL 70-110 TESTED AT [facility] [address] (test nnte=9498) [facility] [address] [id number] 09:48:00 Test Item Value Reference Range Comments MAGNESIUM (BEAKER) (test fxer=175) 0.8 mg/dL 1.6-2.6 BASIC METABOLIC [id number] 09:47:00 Test Item Value Reference Range Comments SODIUM (BEAKER) (test 136 meq/L 136-145 abjt=655) POTASSIUM (BEAKER) (test 3.3 meq/L 3.5-5.1 kurp=447) CHLORIDE (BEAKER) (test 96 meq/L 98-107 tbxx=668) CO2 (BEAKER) (test 32 meq/L 22-29 mqkm=765) BLOOD UREA NITROGEN 7 mg/dL 7-21 (BEAKER) (test lwrb=583) CREATININE (BEAKER) (test 0.80 mg/dL 0.57-1.25 xicx=078) GLUCOSE RANDOM (BEAKER) 382 mg/dL 70-105 (test zvsc=520) CALCIUM (BEAKER) (test 7.8 mg/dL 8.4-10.2 svcm=403) EGFR (BEAKER) (test 105 mL/min/1.73 sq m ESTIMATED GFR IS NOT dkik=9090) ACCURATE CREATININE CLEARANCE IN PREDICTING GLOMERULAR FILTRATION RATE. ESTIMATED GFR IS NOT APPLICABLE FOR DIALYSIS PATIENTS. TROPONIN [id number] 09:34:00 Test Item Value Reference Range Comments TROPONIN I (BEAKER) (test ifrv=611) < ng/mL 0.00-0.03 Troponin I (TnI) levels [...] failure, acidosis, acute neurological disease, and persistent tachyarrhythmia.RAPID INFLUENZA A&B [id number] 09:32:00 Test Item Value Reference Range Comments RAPID INFLUENZA A AG (BEAKER) (test Negative Negative, Inconclusive nxxm=4894) RAPID INFLUENZA B AG (BEAKER) (test Negative Negative, Inconclusive pryp=3078) RAD, CHEST, 1 VIEW, NON [id number] 09:29:00Reason for exam:->COUGHReason for exam:->SHORTNESS OF BREATHIs the patient ?->NoFINAL REPORT AP chest HISTORY: Shortness of breath. COMPARISON: 2017. IMPRESSION: Chest port present. Diffuse bronchiectasis similar to previous. No superimposed acute infiltrate. Heart size within normal limits. No effusion or pneumothorax. Signed: Volodymyr Olivarez MDReportVerified Date/Time: 02/26/2019 09:29:34 Reading Location: [address] Transitional Reading Room PT/ [id number] 09:18:00 Test Item Value Reference Range Comments PROTIME (BEAKER) (test bgqm=312) 15.0 seconds 11.7-14.7 INR (BEAKER) (test hzwk=866) 1.2 <=5.9 PARTIAL THROMBOPLASTIN TIME (BEAKER) (test 34.9 seconds 22.5-36.0 jqvf=837) RECOMMENDED COUMADIN/WARFARIN INR THERAPY RANGESSTANDARD DOSE: 2.0 - 3.0 Includes: PROPHYLAXIS forvenous thrombosis, systemic embolization; TREATMENT for venous thrombosis and/or pulmonary embolus.HIGH RISK: Target INR is 2.5-3.5 for patients with mechanical heart valves.CBC W/PLT COUNT & AUTO [id number] 09:17:00 Test Item Value Reference Range Comments WHITE BLOOD CELL COUNT (BEAKER) (test vdnj=389) 12.6 K/ L 3.5-10.5 RED BLOOD CELL COUNT (BEAKER) (test bliv=942) 3.65 M/ L 3.93-5.22 HEMOGLOBIN (BEAKER) (test hagq=192) 9.4 GM/DL 11.2-15.7 HEMATOCRIT (BEAKER) (test yfjm=907) 31.6 % 34.1-44.9 MEAN CORPUSCULAR VOLUME (BEAKER) (test ulng=922) 86.6 fL 79.4-94.8 MEAN CORPUSCULAR HEMOGLOBIN (BEAKER) (test 25.8 pg 25.6-32.2 iweg=852) MEAN CORPUSCULAR HEMOGLOBIN CONC (BEAKER) (test 29.7 GM/DL 32.2-35.5 uhfm=548) RED CELL DISTRIBUTION WIDTH (BEAKER) (test 15.5 % 11.7-14.4 qzuy=288) PLATELET COUNT (BEAKER) (test oxkg=678) 339 K/CU MM 150-450 MEAN PLATELET VOLUME (BEAKER) (test xajo=403) 11.7 fL 9.4-12.3 NUCLEATED RED BLOOD CELLS (BEAKER) (test 0 /100 WBC 0-0 sbln=664) NEUTROPHILS RELATIVE PERCENT (BEAKER) (test 81 % lkgs=573) LYMPHOCYTES RELATIVE PERCENT (BEAKER) (test 9 % bwxw=982) MONOCYTES RELATIVE PERCENT (BEAKER) (test 6 % mpes=821) EOSINOPHILS RELATIVE PERCENT (BEAKER) (test 3 % jzum=030) BASOPHILS RELATIVE PERCENT (BEAKER) (test 0 % snru=779) NEUTROPHILS ABSOLUTE COUNT (BEAKER) (test 10.20 K/ L 1.56-6.13 iwvj=855) LYMPHOCYTES ABSOLUTE COUNT (BEAKER) (test 1.17 K/ L 1.18-3.74 ipqq=719) MONOCYTES ABSOLUTE COUNT (BEAKER) (test 0.77 K/ L 0.24-0.36 eccz=775) EOSINOPHILS ABSOLUTE COUNT (BEAKER) (test 0.40 K/ L 0.04-0.36 ggyq=896) BASOPHILS ABSOLUTE COUNT (BEAKER) (test 0.03 K/ L 0.01-0.08 ewba=325) IMMATURE GRANULOCYTES-RELATIVE PERCENT (BEAKER) 1 % 0-1 (test grll=3192) POCT-LACTIC ACID, [id number] 09:05:00 Test Item Value Reference Range Comments POC-LACTIC ACID, VENOUS 1.6 mmol/L 0.9-1.7 TESTED AT [address] (BEAKER) (test ejpu=8180) [facility] [address] AFB CULTURE + [id number] 16:02:00 Test Item Value Reference Range Comments CULTURE (BEAKER) (test No acid-fast bacilli isolated jtna=8900) in 42 days AFB SMEAR (BEAKER) (test No acid fast bacilli seen hvnp=760) FUNGUS CULTURE + [id number] 18:23:00 Test Item Value Reference Range Comments CULTURE (BEAKER) (test 3+ Clau dubliniensis nyjz=4127) FUNGUS SMEAR (BEAKER) (test No fungi seen euak=8908) POCT-GLUCOSE [id number] 21:56:00 Test Item Value Reference Range Comments POC-GLUCOSE METER (BEAKER) 215 mg/dL 70-110 TESTED AT [facility] [address] [facility] (test ofeg=4596) [facility] [address] POCT-GLUCOSE [id number] 17:25:00 Test Item Value Reference Range Comments POC-GLUCOSE METER (BEAKER) 214 mg/dL 70-110 TESTED AT [address] (test efzf=6220) [place] [id number] POCT-GLUCOSE [id number] 13:42:00 Test Item Value Reference Range Comments POC-GLUCOSE METER (BEAKER) 161 mg/dL 70-110 TESTED AT [address] (test cqxt=5173) [place] [id number] CBC W/PLT COUNT & AUTO [id number] 11:14:00 Test Item Value Reference Range Comments WHITE BLOOD CELL COUNT (BEAKER) (test rnmk=116) 11.2 K/ L 3.5-10.5 RED BLOOD CELL COUNT (BEAKER) (test uqdb=104) 3.41 M/ L 3.93-5.22 HEMOGLOBIN (BEAKER) (test jbhf=731) 9.0 GM/DL 11.2-15.7 HEMATOCRIT (BEAKER) (test phpg=678) 30.4 % 34.1-44.9 MEAN CORPUSCULAR VOLUME (BEAKER) (test etir=167) 89.1 fL 79.4-94.8 MEAN CORPUSCULAR HEMOGLOBIN (BEAKER) (test 26.4 pg 25.6-32.2 jrsy=834) MEAN CORPUSCULAR HEMOGLOBIN CONC (BEAKER) (test 29.6 GM/DL 32.2-35.5 bisp=482) RED CELL DISTRIBUTION WIDTH (BEAKER) (test 16.7 % 11.7-14.4 apln=529) PLATELET COUNT (BEAKER) (test rbso=266) 363 K/CU MM 150-450 MEAN PLATELET VOLUME (BEAKER) (test xwqv=440) 11.8 fL 9.4-12.3 NUCLEATED RED BLOOD CELLS (BEAKER) (test 0 /100 WBC 0-0 xsxc=776) NEUTROPHILS RELATIVE PERCENT (BEAKER) (test 53 % wuov=910) LYMPHOCYTES RELATIVE PERCENT (BEAKER) (test 28 % hkaj=883) MONOCYTES RELATIVE PERCENT (BEAKER) (test 10 % qghg=364) EOSINOPHILS RELATIVE PERCENT (BEAKER) (test 8 % jdrh=305) BASOPHILS RELATIVE PERCENT (BEAKER) (test 0 % faes=539) NEUTROPHILS ABSOLUTE COUNT (BEAKER) (test 5.87 K/ L 1.56-6.13 klbn=316) LYMPHOCYTES ABSOLUTE COUNT (BEAKER) (test 3.15 K/ L 1.18-3.74 jxeo=234) MONOCYTES ABSOLUTE COUNT (BEAKER) (test 1.13 K/ L 0.24-0.36 wqqi=666) EOSINOPHILS ABSOLUTE COUNT (BEAKER) (test 0.89 K/ L 0.04-0.36 izmm=436) BASOPHILS ABSOLUTE COUNT (BEAKER) (test 0.05 K/ L 0.01-0.08 varl=771) IMMATURE GRANULOCYTES-RELATIVE PERCENT (BEAKER) 1 % 0-1 (test govz=1758) [id number] 11:00:00 Test Item Value Reference Range Comments MAGNESIUM (BEAKER) (test kywe=406) 1.1 mg/dL 1.6-2.6 COMPREHENSIVE METABOLIC [id number] 11:00:00 Test Item Value Reference Range Comments TOTAL PROTEIN (BEAKER) 6.0 gm/dL 6.0-8.3 (test zjrs=808) ALBUMIN (BEAKER) (test 2.6 g/dL 3.5-5.0 kgkp=8434) ALKALINE PHOSPHATASE 83 U/L 40-150 (BEAKER) (test faxh=628) BILIRUBIN TOTAL (BEAKER) 0.1 mg/dL 0.2-1.2 (test wtkj=164) SODIUM (BEAKER) (test 136 meq/L 136-145 iiko=653) POTASSIUM (BEAKER) (test 5.0 meq/L 3.5-5.1 osiw=367) CHLORIDE (BEAKER) (test 96 meq/L 98-107 sdkk=335) CO2 (BEAKER) (test 36 meq/L 22-29 zlad=485) BLOOD UREA NITROGEN 13 mg/dL 7-21 (BEAKER) (test ntar=205) CREATININE (BEAKER) (test 0.68 mg/dL 0.57-1.25 gsxv=310) GLUCOSE RANDOM (BEAKER) 263 mg/dL 70-105 (test gobo=122) CALCIUM (BEAKER) (test 8.8 mg/dL 8.4-10.2 kshh=713) AST (SGOT) (BEAKER) (test 20 U/L 5-34 nxhd=603) ALT (SGPT) (BEAKER) (test 28 U/L 6-55 ozbj=202) EGFR (BEAKER) (test 127 mL/min/1.73 sq ESTIMATED GFR IS NOT orcg=9568) m ACCURATE CREATININE CLEARANCE IN PREDICTING GLOMERULAR FILTRATION RATE. ESTIMATED GFR IS NOT APPLICABLE FOR DIALYSIS PATIENTS. POCT-GLUCOSE [id number] 09:18:00 Test Item Value Reference Range Comments POC-GLUCOSE METER (BEAKER) 161 mg/dL 70-110 TESTED AT [address] (test fjou=2277) [place] [id number] POCT-GLUCOSE [id number] 22:02:00 Test Item Value Reference Range Comments POC-GLUCOSE METER (BEAKER) 252 mg/dL 70-110 TESTED AT [address] (test icgt=2428) [place] [address] POCT-GLUCOSE [id number] 17:39:00 Test Item Value Reference Range Comments POC-GLUCOSE METER (BEAKER) 317 mg/dL 70-110 TESTED AT [address] (test cjog=5994) [place] [id number] POCT-GLUCOSE [id number] 12:53:00 Test Item Value Reference Range Comments POC-GLUCOSE METER (BEAKER) 230 mg/dL 70-110 TESTED AT [address] (test zmxu=5602) [place] [id number] POCT-GLUCOSE [id number] 10:09:00 Test Item Value Reference Range Comments POC-GLUCOSE METER (BEAKER) 242 mg/dL 70-110 TESTED AT [address] (test cjmv=0655) [place] [id number] POCT-GLUCOSE [id number] 09:36:00 Test Item Value Reference Range Comments POC-GLUCOSE METER (BEAKER) 53 mg/dL 70-110 TESTED AT [address] (test ofay=9247) [facility] [address] POCT-GLUCOSE [id number] 22:29:00 Test Item Value Reference Range Comments POC-GLUCOSE METER (BEAKER) 197 mg/dL 70-110 TESTED AT [address] (test imce=4856) [place] [id number] POCT-GLUCOSE [id number] 17:51:00 Test Item Value Reference Range Comments POC-GLUCOSE METER (BEAKER) 292 mg/dL 70-110 TESTED AT [facility] [address] [facility] (test tzbr=1368) [facility] [address] B-TYPE NATRIURETIC FACTOR (BNP)[id number] 17:20:00 Test Item Value Reference Range Comments B-TYPE NATRIURETIC PEPTIDE (BEAKER) (test 119 pg/mL 0-100 eotg=043) [id number] 17:16:00 Test Item Value Reference Range Comments MAGNESIUM (BEAKER) (test ogwa=545) 1.0 mg/dL 1.6-2.6 POCT-GLUCOSE [id number] 13:12:00 Test Item Value Reference Range Comments POC-GLUCOSE METER (BEAKER) 266 mg/dL 70-110 TESTED AT [address] (test qeri=5473) [facility] [address] COMPREHENSIVE METABOLIC [id number] 09:09:00 Test Item Value Reference Range Comments TOTAL PROTEIN (BEAKER) 6.1 gm/dL 6.0-8.3 (test tzkd=531) ALBUMIN (BEAKER) (test 2.6 g/dL 3.5-5.0 lwfw=9531) ALKALINE PHOSPHATASE 87 U/L 40-150 (BEAKER) (test jpda=769) BILIRUBIN TOTAL (BEAKER) < mg/dL 0.2-1.2 (test hgcw=012) SODIUM (BEAKER) (test 139 meq/L 136-145 heql=936) POTASSIUM (BEAKER) (test 4.8 meq/L 3.5-5.1 knjv=844) CHLORIDE (BEAKER) (test 100 meq/L 98-107 vmwe=098) CO2 (BEAKER) (test 30 meq/L 22-29 ikth=919) BLOOD UREA NITROGEN 20 mg/dL 7-21 (BEAKER) (test ehir=248) CREATININE (BEAKER) (test 0.63 mg/dL 0.57-1.25 swno=343) GLUCOSE RANDOM (BEAKER) 193 mg/dL 70-105 (test aiiw=369) CALCIUM (BEAKER) (test 8.4 mg/dL 8.4-10.2 atxk=162) AST (SGOT) (BEAKER) (test 48 U/L 5-34 uwup=294) ALT (SGPT) (BEAKER) (test 31 U/L 6-55 opyb=017) EGFR (BEAKER) (test 138 mL/min/1.73 sq ESTIMATED GFR IS NOT grwn=4404) m ACCURATE CREATININE CLEARANCE IN PREDICTING GLOMERULAR FILTRATION RATE. ESTIMATED GFR IS NOT APPLICABLE FOR DIALYSIS PATIENTS. [id number] 09:02:00 Test Item Value Reference Range Comments MAGNESIUM (BEAKER) (test giop=726) 1.4 mg/dL 1.6-2.6 CBC W/PLT COUNT & AUTO [id number] 07:56:00 Test Item Value Reference Range Comments WHITE BLOOD CELL COUNT (BEAKER) (test nnit=060) 11.9 K/ L 3.5-10.5 RED BLOOD CELL COUNT (BEAKER) (test emwt=561) 3.32 M/ L 3.93-5.22 HEMOGLOBIN (BEAKER) (test gvnd=397) 8.7 GM/DL 11.2-15.7 HEMATOCRIT (BEAKER) (test cdeh=382) 29.8 % 34.1-44.9 MEAN CORPUSCULAR VOLUME (BEAKER) (test ckjc=559) 89.8 fL 79.4-94.8 MEAN CORPUSCULAR HEMOGLOBIN (BEAKER) (test 26.2 pg 25.6-32.2 sshh=165) MEAN CORPUSCULAR HEMOGLOBIN CONC (BEAKER) (test 29.2 GM/DL 32.2-35.5 eoqz=309) RED CELL DISTRIBUTION WIDTH (BEAKER) (test 16.6 % 11.7-14.4 vhjq=926) PLATELET COUNT (BEAKER) (test qwge=303) 355 K/CU MM 150-450 MEAN PLATELET VOLUME (BEAKER) (test rjpj=377) 11.9 fL 9.4-12.3 NUCLEATED RED BLOOD CELLS (BEAKER) (test 0 /100 WBC 0-0 gcbj=375) NEUTROPHILS RELATIVE PERCENT (BEAKER) (test 66 % gspm=703) LYMPHOCYTES RELATIVE PERCENT (BEAKER) (test 20 % wkzl=597) MONOCYTES RELATIVE PERCENT (BEAKER) (test 10 % ytco=332) EOSINOPHILS RELATIVE PERCENT (BEAKER) (test 4 % ubuj=457) BASOPHILS RELATIVE PERCENT (BEAKER) (test 0 % iwra=801) NEUTROPHILS ABSOLUTE COUNT (BEAKER) (test 7.85 K/ L 1.56-6.13 qjxq=617) LYMPHOCYTES ABSOLUTE COUNT (BEAKER) (test 2.33 K/ L 1.18-3.74 ijwg=969) MONOCYTES ABSOLUTE COUNT (BEAKER) (test 1.15 K/ L 0.24-0.36 fdur=460) EOSINOPHILS ABSOLUTE COUNT (BEAKER) (test 0.42 K/ L 0.04-0.36 mjzs=753) BASOPHILS ABSOLUTE COUNT (BEAKER) (test 0.04 K/ L 0.01-0.08 ycvp=664) IMMATURE GRANULOCYTES-RELATIVE PERCENT (BEAKER) 1 % 0-1 (test kqme=3507) POCT-GLUCOSE [id number] 07:53:00 Test Item Value Reference Range Comments POC-GLUCOSE METER (BEAKER) 151 mg/dL 70-110 TESTED AT [address] (test tkre=6124) [place] [address] [id number] 23:34:00 Test Item Value Reference Range Comments MAGNESIUM (BEAKER) (test clef=969) 2.0 mg/dL 1.6-2.6 POCT-GLUCOSE [id number] 21:32:00 Test Item Value Reference Range Comments POC-GLUCOSE METER (BEAKER) 225 mg/dL 70-110 TESTED AT [address] (test xihu=5608) [place] [id number] POCT-GLUCOSE [id number] 17:27:00 Test Item Value Reference Range Comments POC-GLUCOSE METER (BEAKER) 209 mg/dL 70-110 TESTED AT [address] (test eyxt=3608) [place] [id number] POCT-GLUCOSE [id number] 12:13:00 Test Item Value Reference Range Comments POC-GLUCOSE METER (BEAKER) 181 mg/dL 70-110 TESTED AT [address] (test iegm=0493) [place] [address] [id number] 09:28:00 Test Item Value Reference Range Comments MAGNESIUM (BEAKER) (test nbeo=191) 1.7 mg/dL 1.6-2.6 COMPREHENSIVE METABOLIC [id number] 09:28:00 Test Item Value Reference Range Comments TOTAL PROTEIN (BEAKER) 7.1 gm/dL 6.0-8.3 (test tmxu=828) ALBUMIN (BEAKER) (test 2.8 g/dL 3.5-5.0 himu=0633) ALKALINE PHOSPHATASE 103 U/L 40-150 (BEAKER) (test rsmr=269) BILIRUBIN TOTAL (BEAKER) 0.1 mg/dL 0.2-1.2 (test wnqi=221) SODIUM (BEAKER) (test 137 meq/L 136-145 nbqu=701) POTASSIUM (BEAKER) (test 4.7 meq/L 3.5-5.1 gwnn=105) CHLORIDE (BEAKER) (test 98 meq/L 98-107 asma=341) CO2 (BEAKER) (test 35 meq/L 22-29 bdbx=713) BLOOD UREA NITROGEN 20 mg/dL 7-21 (BEAKER) (test sicw=552) CREATININE (BEAKER) (test 0.63 mg/dL 0.57-1.25 xtqq=094) GLUCOSE RANDOM (BEAKER) 157 mg/dL 70-105 (test wwgs=872) CALCIUM (BEAKER) (test 9.0 mg/dL 8.4-10.2 bzbk=595) AST (SGOT) (BEAKER) (test 46 U/L 5-34 nycz=882) ALT (SGPT) (BEAKER) (test 26 U/L 6-55 fduz=440) EGFR (BEAKER) (test 138 mL/min/1.73 sq ESTIMATED GFR IS NOT xihi=1859) m ACCURATE CREATININE CLEARANCE IN PREDICTING GLOMERULAR FILTRATION RATE. ESTIMATED GFR IS NOT APPLICABLE FOR DIALYSIS PATIENTS. CBC W/PLT COUNT & AUTO [id number] 09:02:00 Test Item Value Reference Range Comments WHITE BLOOD CELL COUNT (BEAKER) (test wdjf=529) 14.1 K/ L 3.5-10.5 RED BLOOD CELL COUNT (BEAKER) (test gkek=979) 3.75 M/ L 3.93-5.22 HEMOGLOBIN (BEAKER) (test pfdf=180) 9.9 GM/DL 11.2-15.7 HEMATOCRIT (BEAKER) (test sjpu=696) 33.6 % 34.1-44.9 MEAN CORPUSCULAR VOLUME (BEAKER) (test span=562) 89.6 fL 79.4-94.8 MEAN CORPUSCULAR HEMOGLOBIN (BEAKER) (test 26.4 pg 25.6-32.2 kszm=717) MEAN CORPUSCULAR HEMOGLOBIN CONC (BEAKER) (test 29.5 GM/DL 32.2-35.5 exkx=655) RED CELL DISTRIBUTION WIDTH (BEAKER) (test 16.0 % 11.7-14.4 slmx=942) PLATELET COUNT (BEAKER) (test cuup=468) 399 K/CU MM 150-450 MEAN PLATELET VOLUME (BEAKER) (test yimw=674) 11.3 fL 9.4-12.3 NUCLEATED RED BLOOD CELLS (BEAKER) (test 0 /100 WBC 0-0 otnf=553) NEUTROPHILS RELATIVE PERCENT (BEAKER) (test 66 % muct=776) LYMPHOCYTES RELATIVE PERCENT (BEAKER) (test 19 % szit=242) MONOCYTES RELATIVE PERCENT (BEAKER) (test 10 % zqsd=343) EOSINOPHILS RELATIVE PERCENT (BEAKER) (test 4 % ygho=704) BASOPHILS RELATIVE PERCENT (BEAKER) (test 0 % ocig=329) NEUTROPHILS ABSOLUTE COUNT (BEAKER) (test 9.30 K/ L 1.56-6.13 vqlx=549) LYMPHOCYTES ABSOLUTE COUNT (BEAKER) (test 2.69 K/ L 1.18-3.74 krvy=311) MONOCYTES ABSOLUTE COUNT (BEAKER) (test 1.37 K/ L 0.24-0.36 uxjd=739) EOSINOPHILS ABSOLUTE COUNT (BEAKER) (test 0.59 K/ L 0.04-0.36 pnff=604) BASOPHILS ABSOLUTE COUNT (BEAKER) (test 0.04 K/ L 0.01-0.08 nuxc=111) IMMATURE GRANULOCYTES-RELATIVE PERCENT (BEAKER) 1 % 0-1 (test xatz=0162) POCT-GLUCOSE [id number] 08:10:00 Test Item Value Reference Range Comments POC-GLUCOSE METER (BEAKER) 99 mg/dL 70-110 TESTED AT [facility] [address] (test illq=1051) [facility] [address] POCT-GLUCOSE [id number] 21:12:00 Test Item Value Reference Range Comments POC-GLUCOSE METER (BEAKER) 341 mg/dL 70-110 Notified JORDON STAPLETON/TESTED AT [facility] (test vnod=0341) [address] [facility] [address] POCT-GLUCOSE [id number] 17:38:00 Test Item Value Reference Range Comments POC-GLUCOSE METER (BEAKER) 403 mg/dL 70-110 Notified JORDON STAPLETON/TESTED AT [facility] (test atcj=0336) [address] [facility] [address] BLOOD GAS, [id number] 12:53:00 Test Item Value Reference Range Comments PH VENOUS (BEAKER) (test vilw=633) 7.35 7.32-7.42 PCO2 VENOUS (BEAKER) (test qcnn=781) 68 mmHg 41-51 PO2 VENOUS (BEAKER) (test ptnd=554) 42 mmHg 25-40 O2 SATURATION VENOUS (BEAKER) (test qaah=330) 73.6 % 40.0-70.0 HCO3 VENOUS (BEAKER) (test iont=228) 37 mmol/L 21-29 BASE EXCESS VENOUS (BEAKER) (test pzuy=153) 8.9 mmol/L -2.0-3.0 PATIENT TEMPERATURE (BEAKER) (test dvdd=1955) 37.0 C FIO2 (BEAKER) (test iaxa=9581) 100.0 % POCT-GLUCOSE [id number] 12:00:00 Test Item Value Reference Range Comments POC-GLUCOSE METER (BEAKER) 274 mg/dL 70-110 TESTED AT [place] [address] [address] (test tsur=3153) [facility] [address] [id number] 11:20:00 Test Item Value Reference Range Comments MAGNESIUM (BEAKER) (test jnmk=140) 1.3 mg/dL 1.6-2.6 COMPREHENSIVE METABOLIC [id number] 11:20:00 Test Item Value Reference Range Comments TOTAL PROTEIN (BEAKER) 6.0 gm/dL 6.0-8.3 (test cwjy=711) ALBUMIN (BEAKER) (test 2.3 g/dL 3.5-5.0 rxsw=0926) ALKALINE PHOSPHATASE 89 U/L 40-150 (BEAKER) (test onoi=581) BILIRUBIN TOTAL (BEAKER) < mg/dL 0.2-1.2 (test stoy=858) SODIUM (BEAKER) (test 138 meq/L 136-145 dbvm=643) POTASSIUM (BEAKER) (test 4.2 meq/L 3.5-5.1 bfyj=003) CHLORIDE (BEAKER) (test 97 meq/L 98-107 bwgy=303) CO2 (BEAKER) (test 32 meq/L 22-29 vkme=250) BLOOD UREA NITROGEN 17 mg/dL 7-21 (BEAKER) (test iylh=057) CREATININE (BEAKER) (test 0.70 mg/dL 0.57-1.25 uctc=977) GLUCOSE RANDOM (BEAKER) 241 mg/dL 70-105 (test sobq=822) CALCIUM (BEAKER) (test 8.3 mg/dL 8.4-10.2 fuuj=725) AST (SGOT) (BEAKER) (test 28 U/L 5-34 hfxq=587) ALT (SGPT) (BEAKER) (test 17 U/L 6-55 tonm=245) EGFR (BEAKER) (test 123 mL/min/1.73 sq ESTIMATED GFR IS NOT ifrv=8617) m ACCURATE CREATININE CLEARANCE IN PREDICTING GLOMERULAR FILTRATION RATE. ESTIMATED GFR IS NOT APPLICABLE FOR DIALYSIS PATIENTS. CBC W/PLT COUNT & AUTO [id number] 10:42:00 Test Item Value Reference Range Comments WHITE BLOOD CELL COUNT (BEAKER) (test vtld=620) 9.5 K/ L 3.5-10.5 RED BLOOD CELL COUNT (BEAKER) (test mgjv=655) 3.52 M/ L 3.93-5.22 HEMOGLOBIN (BEAKER) (test nsyu=444) 9.5 GM/DL 11.2-15.7 HEMATOCRIT (BEAKER) (test bwdg=600) 31.8 % 34.1-44.9 MEAN CORPUSCULAR VOLUME (BEAKER) (test hpom=504) 90.3 fL 79.4-94.8 MEAN CORPUSCULAR HEMOGLOBIN (BEAKER) (test 27.0 pg 25.6-32.2 dykj=069) MEAN CORPUSCULAR HEMOGLOBIN CONC (BEAKER) (test 29.9 GM/DL 32.2-35.5 gdxz=901) RED CELL DISTRIBUTION WIDTH (BEAKER) (test 15.8 % 11.7-14.4 uare=781) PLATELET COUNT (BEAKER) (test ihvo=965) 343 K/CU MM 150-450 MEAN PLATELET VOLUME (BEAKER) (test qobf=717) 11.4 fL 9.4-12.3 NUCLEATED RED BLOOD CELLS (BEAKER) (test 0 /100 WBC 0-0 bvda=197) NEUTROPHILS RELATIVE PERCENT (BEAKER) (test 54 % loea=987) LYMPHOCYTES RELATIVE PERCENT (BEAKER) (test 27 % zktn=115) MONOCYTES RELATIVE PERCENT (BEAKER) (test 10 % xlcf=037) EOSINOPHILS RELATIVE PERCENT (BEAKER) (test 8 % cndo=928) BASOPHILS RELATIVE PERCENT (BEAKER) (test 1 % ftqa=724) NEUTROPHILS ABSOLUTE COUNT (BEAKER) (test 5.15 K/ L 1.56-6.13 smju=170) LYMPHOCYTES ABSOLUTE COUNT (BEAKER) (test 2.58 K/ L 1.18-3.74 niok=300) MONOCYTES ABSOLUTE COUNT (BEAKER) (test 0.92 K/ L 0.24-0.36 pwzq=543) EOSINOPHILS ABSOLUTE COUNT (BEAKER) (test 0.74 K/ L 0.04-0.36 nidq=421) BASOPHILS ABSOLUTE COUNT (BEAKER) (test 0.06 K/ L 0.01-0.08 woos=503) IMMATURE GRANULOCYTES-RELATIVE PERCENT (BEAKER) 1 % 0-1 (test pnsg=0412) POCT-GLUCOSE [id number] 08:13:00 Test Item Value Reference Range Comments POC-GLUCOSE METER (BEAKER) 135 mg/dL 70-110 TESTED AT [address] (test tzih=2533) [place] [id number] POCT-GLUCOSE [id number] 21:28:00 Test Item Value Reference Range Comments POC-GLUCOSE METER (BEAKER) 175 mg/dL 70-110 TESTED AT [address] (test gyzy=2632) [place] [id number] BLOOD GAS, [id number] 18:33:00 Test Item Value Reference Range Comments PH VENOUS (BEAKER) (test mckv=029) 7.38 7.32-7.42 PCO2 VENOUS (BEAKER) (test wjqz=020) 59 mmHg 41-51 PO2 VENOUS (BEAKER) (test hdne=125) 43 mmHg 25-40 O2 SATURATION VENOUS (BEAKER) (test bspe=338) 77.0 % 40.0-70.0 HCO3 VENOUS (BEAKER) (test ctap=648) 34 mmol/L 21-29 BASE EXCESS VENOUS (BEAKER) (test dtie=443) 7.2 mmol/L -2.0-3.0 PATIENT TEMPERATURE (BEAKER) (test rrct=2738) 36.8 C FIO2 (BEAKER) (test wvxs=0748) 32.0 % POCT-GLUCOSE [id number] 18:31:00 Test Item Value Reference Range Comments POC-GLUCOSE METER (BEAKER) 349 mg/dL 70-110 Notified JORDON STAPLETON/TESTED AT [facility] (test lavr=8427) [address] [facility] [address] [id number] 16:27:00 Test Item Value Reference Range Comments MAGNESIUM (BEAKER) (test 2.8 mg/dL 1.6-2.6 Specimen slightly hemolyzed elyp=974) POCT-GLUCOSE [id number] 09:09:00 Test Item Value Reference Range Comments POC-GLUCOSE METER (BEAKER) 81 mg/dL 70-110 TESTED AT [facility] [address] [facility] (test lcqp=4879) [facility] [address] [id number] 07:26:00 Test Item Value Reference Range Comments MAGNESIUM (BEAKER) (test zkmz=604) 1.4 mg/dL 1.6-2.6 COMPREHENSIVE METABOLIC [id number] 07:26:00 Test Item Value Reference Range Comments TOTAL PROTEIN (BEAKER) 6.9 gm/dL 6.0-8.3 (test sexu=001) ALBUMIN (BEAKER) (test 2.5 g/dL 3.5-5.0 srto=6737) ALKALINE PHOSPHATASE 106 U/L 40-150 (BEAKER) (test emuc=407) BILIRUBIN TOTAL (BEAKER) 0.1 mg/dL 0.2-1.2 (test wqvd=872) SODIUM (BEAKER) (test 138 meq/L 136-145 pixi=725) POTASSIUM (BEAKER) (test 4.0 meq/L 3.5-5.1 icxj=359) CHLORIDE (BEAKER) (test 94 meq/L 98-107 knjl=391) CO2 (BEAKER) (test 37 meq/L 22-29 ieap=322) BLOOD UREA NITROGEN 17 mg/dL 7-21 (BEAKER) (test hfsn=842) CREATININE (BEAKER) (test 0.64 mg/dL 0.57-1.25 ovcc=468) GLUCOSE RANDOM (BEAKER) 56 mg/dL 70-105 (test xiel=414) CALCIUM (BEAKER) (test 8.9 mg/dL 8.4-10.2 hrar=117) AST (SGOT) (BEAKER) (test 29 U/L 5-34 kkfi=484) ALT (SGPT) (BEAKER) (test 11 U/L 6-55 wjvq=779) EGFR (BEAKER) (test 136 mL/min/1.73 sq ESTIMATED GFR IS NOT vvvs=8115) m ACCURATE CREATININE CLEARANCE IN PREDICTING GLOMERULAR FILTRATION RATE. ESTIMATED GFR IS NOT APPLICABLE FOR DIALYSIS PATIENTS. CBC W/PLT COUNT & AUTO [id number] 07:00:00 Test Item Value Reference Range Comments WHITE BLOOD CELL COUNT (BEAKER) (test zsqt=778) 11.9 K/ L 3.5-10.5 RED BLOOD CELL COUNT (BEAKER) (test zuzn=224) 3.95 M/ L 3.93-5.22 HEMOGLOBIN (BEAKER) (test kvnu=133) 10.1 GM/DL 11.2-15.7 HEMATOCRIT (BEAKER) (test ykjl=193) 34.9 % 34.1-44.9 MEAN CORPUSCULAR VOLUME (BEAKER) (test xnbe=738) 88.4 fL 79.4-94.8 MEAN CORPUSCULAR HEMOGLOBIN (BEAKER) (test 25.6 pg 25.6-32.2 hmhq=878) MEAN CORPUSCULAR HEMOGLOBIN CONC (BEAKER) (test 28.9 GM/DL 32.2-35.5 dput=313) RED CELL DISTRIBUTION WIDTH (BEAKER) (test 15.4 % 11.7-14.4 mzux=561) PLATELET COUNT (BEAKER) (test tddg=597) 376 K/CU MM 150-450 MEAN PLATELET VOLUME (BEAKER) (test lwyw=090) 11.4 fL 9.4-12.3 NUCLEATED RED BLOOD CELLS (BEAKER) (test 0 /100 WBC 0-0 slcu=950) NEUTROPHILS RELATIVE PERCENT (BEAKER) (test 59 % mlfk=476) LYMPHOCYTES RELATIVE PERCENT (BEAKER) (test 24 % ehhl=486) MONOCYTES RELATIVE PERCENT (BEAKER) (test 10 % nfec=329) EOSINOPHILS RELATIVE PERCENT (BEAKER) (test 6 % vmrj=990) BASOPHILS RELATIVE PERCENT (BEAKER) (test 0 % muuu=687) NEUTROPHILS ABSOLUTE COUNT (BEAKER) (test 6.98 K/ L 1.56-6.13 dffn=917) LYMPHOCYTES ABSOLUTE COUNT (BEAKER) (test 2.85 K/ L 1.18-3.74 kpls=566) MONOCYTES ABSOLUTE COUNT (BEAKER) (test 1.23 K/ L 0.24-0.36 vwbk=435) EOSINOPHILS ABSOLUTE COUNT (BEAKER) (test 0.68 K/ L 0.04-0.36 jexm=938) BASOPHILS ABSOLUTE COUNT (BEAKER) (test 0.05 K/ L 0.01-0.08 xylb=006) IMMATURE GRANULOCYTES-RELATIVE PERCENT (BEAKER) 1 % 0-1 (test wnvo=8527) POCT-GLUCOSE [id number] 22:03:00 Test Item Value Reference Range Comments POC-GLUCOSE METER (BEAKER) 228 mg/dL 70-110 TESTED AT [address] (test eaik=5840) [place] [address] POCT-GLUCOSE [id number] 18:34:00 Test Item Value Reference Range Comments POC-GLUCOSE METER (BEAKER) 77 mg/dL 70-110 TESTED AT [address] (test kjpc=0659) [facility] [address] BLOOD GAS, [id number] 14:42:00 Test Item Value Reference Range Comments PH ARTERIAL (BEAKER) (test jgxv=165) 7.43 7.35-7.45 PCO2 ARTERIAL (BEAKER) (test sxjs=977) 60 mmHg 35-45 PO2 ARTERIAL (BEAKER) (test jowi=703) 79 mmHg 80-90 O2 SATURATION ARTERIAL (BEAKER) (test mwaf=167) 95.8 % 96.0-97.0 HCO3 ARTERIAL (BEAKER) (test pvoh=682) 39 mmol/L 21-29 BASE EXCESS ARTERIAL (BEAKER) (test pnjf=877) 12.4 mmol/L -2.0-3.0 PATIENT TEMPERATURE (BEAKER) (test ddbo=0708) 36.6 C FIO2 (BEAKER) (test mcxi=8948) 32.0 % CF RESPIRATORY [id number] 12:12:00 Test Item Value Reference Range Comments CULTURE (BEAKER) (test PSEUDOMONAS 3+ Pseudomonas xllm=5831) AERUGINOSA aeruginosa (MUCOID-PHENOTYPE) (Mucoid-phenotype) Amikacin (test code=1) Susceptible 0-16 , Resistant <0 or >16 Aztreonam (test Susceptible 0-8 , code=32) Resistant <0 or >8 Cefepime (test code=51) Susceptible 0-8 , Resistant <0 or >8 Ceftazidime (test Susceptible 0-8 , code=27) Resistant <0 or >8 Gentamicin (test Susceptible 0-4 , code=18) Resistant <0 or >4 Levofloxacin (test Susceptible 0-2 , code=22) Resistant <0 or >2 Meropenem (test Susceptible 0-2 , code=34) Resistant <0 or >2 Piperacillin (test Susceptible 0-16 , code=24) Resistant <0 or >16 Piperacillin + Susceptible 0-16 , Tazobactam (test Resistant <0 or >16 code=29) Tobramycin (test Susceptible 0-4 , code=25) Resistant <0 or >4 [facility] (test PSEUDOMONAS 1+ Pseudomonas mbpb=0452) AERUGINOSA aeruginosa Amikacin (test code=1) Susceptible 0-16 [...] or >4 3+ Normal respiratory derick presentPOCT-GLUCOSE [id number] 11:59:00 Test Item Value Reference Range Comments POC-GLUCOSE METER (BEAKER) 268 mg/dL 70-110 TESTED AT [address] (test gsrt=0219) [facility] [address] POCT-GLUCOSE [id number] 08:26:00 Test Item Value Reference Range Comments POC-GLUCOSE METER (BEAKER) 362 mg/dL 70-110 TESTED AT [facility] [address] [facility] (test xocu=2763) [facility] [address] [id number] 08:26:00 Test Item Value Reference Range Comments MAGNESIUM (BEAKER) (test unlr=021) 1.5 mg/dL 1.6-2.6 COMPREHENSIVE METABOLIC [id number] 08:26:00 Test Item Value Reference Range Comments TOTAL PROTEIN (BEAKER) 7.0 gm/dL 6.0-8.3 (test ogff=904) ALBUMIN (BEAKER) (test 2.5 g/dL 3.5-5.0 jayq=3153) ALKALINE PHOSPHATASE 108 U/L 40-150 (BEAKER) (test lzgr=310) BILIRUBIN TOTAL (BEAKER) 0.1 mg/dL 0.2-1.2 (test qdxu=227) SODIUM (BEAKER) (test 135 meq/L 136-145 bomg=057) POTASSIUM (BEAKER) (test 4.7 meq/L 3.5-5.1 ljor=382) CHLORIDE (BEAKER) (test 92 meq/L 98-107 ymfx=612) CO2 (BEAKER) (test 36 meq/L 22-29 btkz=621) BLOOD UREA NITROGEN 19 mg/dL 7-21 (BEAKER) (test ghsv=065) CREATININE (BEAKER) (test 0.78 mg/dL 0.57-1.25 alog=908) GLUCOSE RANDOM (BEAKER) 284 mg/dL 70-105 (test jpmm=626) CALCIUM (BEAKER) (test 8.8 mg/dL 8.4-10.2 tyfd=515) AST (SGOT) (BEAKER) (test 15 U/L 5-34 lnep=952) ALT (SGPT) (BEAKER) (test 9 U/L 6-55 ebvc=845) EGFR (BEAKER) (test 108 mL/min/1.73 sq ESTIMATED GFR IS NOT ttbt=5196) m ACCURATE CREATININE CLEARANCE IN PREDICTING GLOMERULAR FILTRATION RATE. ESTIMATED GFR IS NOT APPLICABLE FOR DIALYSIS PATIENTS. CBC W/PLT COUNT & AUTO [id number] 07:13:00 Test Item Value Reference Range Comments WHITE BLOOD CELL COUNT (BEAKER) (test mduz=230) 8.5 K/ L 3.5-10.5 RED BLOOD CELL COUNT (BEAKER) (test xycd=890) 3.84 M/ L 3.93-5.22 HEMOGLOBIN (BEAKER) (test gsxl=630) 10.1 GM/DL 11.2-15.7 HEMATOCRIT (BEAKER) (test wzst=241) 33.7 % 34.1-44.9 MEAN CORPUSCULAR VOLUME (BEAKER) (test digq=530) 87.8 fL 79.4-94.8 MEAN CORPUSCULAR HEMOGLOBIN (BEAKER) (test 26.3 pg 25.6-32.2 bchm=287) MEAN CORPUSCULAR HEMOGLOBIN CONC (BEAKER) (test 30.0 GM/DL 32.2-35.5 kips=704) RED CELL DISTRIBUTION WIDTH (BEAKER) (test 15.6 % 11.7-14.4 lnoh=070) PLATELET COUNT (BEAKER) (test ijua=632) 380 K/CU MM 150-450 MEAN PLATELET VOLUME (BEAKER) (test vqlv=417) 11.9 fL 9.4-12.3 NUCLEATED RED BLOOD CELLS (BEAKER) (test 0 /100 WBC 0-0 yddm=313) NEUTROPHILS RELATIVE PERCENT (BEAKER) (test 77 % opba=657) LYMPHOCYTES RELATIVE PERCENT (BEAKER) (test 13 % rvkl=534) MONOCYTES RELATIVE PERCENT (BEAKER) (test 9 % pxvc=923) EOSINOPHILS RELATIVE PERCENT (BEAKER) (test 1 % fnqe=903) BASOPHILS RELATIVE PERCENT (BEAKER) (test 0 % qose=845) NEUTROPHILS ABSOLUTE COUNT (BEAKER) (test 6.54 K/ L 1.56-6.13 idgk=621) LYMPHOCYTES ABSOLUTE COUNT (BEAKER) (test 1.07 K/ L 1.18-3.74 jnkg=061) MONOCYTES ABSOLUTE COUNT (BEAKER) (test 0.78 K/ L 0.24-0.36 inpc=466) EOSINOPHILS ABSOLUTE COUNT (BEAKER) (test 0.04 K/ L 0.04-0.36 hvlg=918) BASOPHILS ABSOLUTE COUNT (BEAKER) (test 0.01 K/ L 0.01-0.08 aqzo=969) IMMATURE GRANULOCYTES-RELATIVE PERCENT (BEAKER) 1 % 0-1 (test msmt=6003) POCT-GLUCOSE [id number] 21:49:00 Test Item Value Reference Range Comments POC-GLUCOSE METER (BEAKER) 225 mg/dL 70-110 TESTED AT [address] (test fvog=3023) [facility] [address] POCT-GLUCOSE [id number] 16:47:00 Test Item Value Reference Range Comments POC-GLUCOSE METER (BEAKER) 367 mg/dL 70-110 TESTED AT [address] (test uixc=2203) [facility] [address] POCT-GLUCOSE [id number] 13:10:00 Test Item Value Reference Range Comments POC-GLUCOSE METER (BEAKER) 446 mg/dL 70-110 Procedure Error/TESTED AT [facility] (test afhd=9894) [address] [place] [address] POCT-GLUCOSE [id number] 08:29:00 Test Item Value Reference Range Comments POC-GLUCOSE METER (BEAKER) 221 mg/dL 70-110 TESTED AT [address] (test ybuy=1228) [facility] [address] [id number] 05:57:00 Test Item Value Reference Range Comments MAGNESIUM (BEAKER) (test rwyi=755) 1.0 mg/dL 1.6-2.6 COMPREHENSIVE METABOLIC [id number] 05:11:00 Test Item Value Reference Range Comments TOTAL PROTEIN (BEAKER) 7.3 gm/dL 6.0-8.3 (test nawb=702) ALBUMIN (BEAKER) (test 2.6 g/dL 3.5-5.0 abfh=3932) ALKALINE PHOSPHATASE 112 U/L 40-150 (BEAKER) (test omlt=168) BILIRUBIN TOTAL (BEAKER) 0.1 mg/dL 0.2-1.2 (test ntni=380) SODIUM (BEAKER) (test 136 meq/L 136-145 kxjd=133) POTASSIUM (BEAKER) (test 4.2 meq/L 3.5-5.1 wisk=294) CHLORIDE (BEAKER) (test 91 meq/L 98-107 wsar=044) CO2 (BEAKER) (test 34 meq/L 22-29 upez=163) BLOOD UREA NITROGEN 10 mg/dL 7-21 (BEAKER) (test pprm=159) CREATININE (BEAKER) (test 0.81 mg/dL 0.57-1.25 gdtd=629) GLUCOSE RANDOM (BEAKER) 365 mg/dL 70-105 (test crlg=190) CALCIUM (BEAKER) (test 8.9 mg/dL 8.4-10.2 vhjm=254) AST (SGOT) (BEAKER) (test 13 U/L 5-34 jmlv=413) ALT (SGPT) (BEAKER) (test 9 U/L 6-55 cepk=471) EGFR (BEAKER) (test 104 mL/min/1.73 sq ESTIMATED GFR IS NOT ytmf=5319) m ACCURATE CREATININE CLEARANCE IN PREDICTING GLOMERULAR FILTRATION RATE. ESTIMATED GFR IS NOT APPLICABLE FOR DIALYSIS PATIENTS. LACTIC ACID, [id number] 04:59:00 Test Item Value Reference Range Comments LACTATE BLOOD VENOUS (2) (BEAKER) (test 1.9 mmol/L 0.5-2.2 ancn=1060) CBC W/PLT COUNT & AUTO [id number] 04:47:00 Test Item Value Reference Range Comments WHITE BLOOD CELL COUNT (BEAKER) (test yxql=782) 8.2 K/ L 3.5-10.5 RED BLOOD CELL COUNT (BEAKER) (test pjqz=810) 3.98 M/ L 3.93-5.22 HEMOGLOBIN (BEAKER) (test lxzp=988) 10.3 GM/DL 11.2-15.7 HEMATOCRIT (BEAKER) (test gmhv=377) 34.5 % 34.1-44.9 MEAN CORPUSCULAR VOLUME (BEAKER) (test ydke=563) 86.7 fL 79.4-94.8 MEAN CORPUSCULAR HEMOGLOBIN (BEAKER) (test 25.9 pg 25.6-32.2 dlss=322) MEAN CORPUSCULAR HEMOGLOBIN CONC (BEAKER) (test 29.9 GM/DL 32.2-35.5 lvzm=082) RED CELL DISTRIBUTION WIDTH (BEAKER) (test 15.3 % 11.7-14.4 exeq=803) PLATELET COUNT (BEAKER) (test idyq=731) 348 K/CU MM 150-450 MEAN PLATELET VOLUME (BEAKER) (test ynob=549) 11.2 fL 9.4-12.3 NUCLEATED RED BLOOD CELLS (BEAKER) (test 0 /100 WBC 0-0 ybor=441) NEUTROPHILS RELATIVE PERCENT (BEAKER) (test 61 % stlr=332) LYMPHOCYTES RELATIVE PERCENT (BEAKER) (test 23 % balm=034) MONOCYTES RELATIVE PERCENT (BEAKER) (test 11 % nnux=367) EOSINOPHILS RELATIVE PERCENT (BEAKER) (test 5 % shll=256) BASOPHILS RELATIVE PERCENT (BEAKER) (test 0 % itsn=309) NEUTROPHILS ABSOLUTE COUNT (BEAKER) (test 4.99 K/ L 1.56-6.13 mrdn=248) LYMPHOCYTES ABSOLUTE COUNT (BEAKER) (test 1.89 K/ L 1.18-3.74 aoit=786) MONOCYTES ABSOLUTE COUNT (BEAKER) (test 0.86 K/ L 0.24-0.36 xdxd=137) EOSINOPHILS ABSOLUTE COUNT (BEAKER) (test 0.41 K/ L 0.04-0.36 acsd=386) BASOPHILS ABSOLUTE COUNT (BEAKER) (test 0.03 K/ L 0.01-0.08 rvuh=443) IMMATURE GRANULOCYTES-RELATIVE PERCENT (BEAKER) 0 % 0-1 (test bdfz=9130) POCT-GLUCOSE [id number] 22:50:00 Test Item Value Reference Range Comments POC-GLUCOSE METER (BEAKER) 338 mg/dL 70-110 TESTED AT [address] (test rxkk=5536) [place] [address] POCT-GLUCOSE [id number] 18:35:00 Test Item Value Reference Range Comments POC-GLUCOSE METER (BEAKER) 177 mg/dL 70-110 TESTED AT [address] (test tksn=2197) [place] [address] BASIC METABOLIC [id number] 15:04:00 Test Item Value Reference Range Comments SODIUM (BEAKER) (test 138 meq/L 136-145 ldsi=116) POTASSIUM (BEAKER) (test 3.9 meq/L 3.5-5.1 eslj=725) CHLORIDE (BEAKER) (test 90 meq/L 98-107 hgwr=585) CO2 (BEAKER) (test 38 meq/L 22-29 tzwk=211) BLOOD UREA NITROGEN 10 mg/dL 7-21 (BEAKER) (test ssuz=107) CREATININE (BEAKER) (test 0.57 mg/dL 0.57-1.25 mtxx=380) GLUCOSE RANDOM (BEAKER) 211 mg/dL 70-105 (test oexc=572) CALCIUM (BEAKER) (test 8.5 mg/dL 8.4-10.2 udhw=124) EGFR (BEAKER) (test 155 mL/min/1.73 sq m ESTIMATED GFR IS NOT gspr=0002) ACCURATE CREATININE CLEARANCE IN PREDICTING GLOMERULAR FILTRATION RATE. ESTIMATED GFR IS NOT APPLICABLE FOR DIALYSIS PATIENTS. CBC W/PLT COUNT & AUTO [id number] 15:00:00 Test Item Value Reference Range Comments WHITE BLOOD CELL COUNT (BEAKER) (test uvwb=560) 10.8 K/ L 3.5-10.5 RED BLOOD CELL COUNT (BEAKER) (test rwni=247) 3.93 M/ L 3.93-5.22 HEMOGLOBIN (BEAKER) (test ahoc=077) 10.4 GM/DL 11.2-15.7 HEMATOCRIT (BEAKER) (test ppsm=949) 34.2 % 34.1-44.9 MEAN CORPUSCULAR VOLUME (BEAKER) (test ojyi=126) 87.0 fL 79.4-94.8 MEAN CORPUSCULAR HEMOGLOBIN (BEAKER) (test 26.5 pg 25.6-32.2 vdqh=524) MEAN CORPUSCULAR HEMOGLOBIN CONC (BEAKER) (test 30.4 GM/DL 32.2-35.5 fxph=745) RED CELL DISTRIBUTION WIDTH (BEAKER) (test 15.0 % 11.7-14.4 qejr=006) PLATELET COUNT (BEAKER) (test npvr=111) 385 K/CU MM 150-450 MEAN PLATELET VOLUME (BEAKER) (test jdvb=470) 11.0 fL 9.4-12.3 NUCLEATED RED BLOOD CELLS (BEAKER) (test 0 /100 WBC 0-0 uhtk=160) NEUTROPHILS RELATIVE PERCENT (BEAKER) (test 86 % hklm=202) LYMPHOCYTES RELATIVE PERCENT (BEAKER) (test 7 % dzrd=303) MONOCYTES RELATIVE PERCENT (BEAKER) (test 3 % fnvd=825) EOSINOPHILS RELATIVE PERCENT (BEAKER) (test 3 % obxu=094) BASOPHILS RELATIVE PERCENT (BEAKER) (test 0 % lpku=270) NEUTROPHILS ABSOLUTE COUNT (BEAKER) (test 9.28 K/ L 1.56-6.13 kdlv=718) LYMPHOCYTES ABSOLUTE COUNT (BEAKER) (test 0.74 K/ L 1.18-3.74 kerw=628) MONOCYTES ABSOLUTE COUNT (BEAKER) (test 0.35 K/ L 0.24-0.36 wpiq=287) EOSINOPHILS ABSOLUTE COUNT (BEAKER) (test 0.33 K/ L 0.04-0.36 jjjg=342) BASOPHILS ABSOLUTE COUNT (BEAKER) (test 0.03 K/ L 0.01-0.08 wrmh=342) IMMATURE GRANULOCYTES-RELATIVE PERCENT (BEAKER) 0 % 0-1 (test acnq=4727) POCT-GLUCOSE [id number] 12:20:00 Test Item Value Reference Range Comments POC-GLUCOSE METER (BEAKER) 275 mg/dL 70-110 TESTED AT [address] (test lqmg=6201) [place] [address] BLOOD [id number] 02:00:00 Test Item Value Reference Range Comments CULTURE (BEAKER) (test bbmo=8469) No growth in 5 days POCT-GLUCOSE [id number] 22:34:00 Test Item Value Reference Range Comments POC-GLUCOSE METER (BEAKER) 339 mg/dL 70-110 TESTED AT [address] (test nkdu=7808) [place] [address] BLOOD [id number] 20:01:00 Test Item Value Reference Range Comments CULTURE (BEAKER) (test nsgn=4363) No growth in 5 days POCT-GLUCOSE [id number] 19:07:00 Test Item Value Reference Range Comments POC-GLUCOSE METER (BEAKER) 296 mg/dL 70-110 TESTED AT [address] (test ntff=4040) [place] [address] POCT-GLUCOSE [id number] 12:53:00 Test Item Value Reference Range Comments POC-GLUCOSE METER (BEAKER) 104 mg/dL 70-110 TESTED AT [address] (test xjem=0827) [place] [address] POCT-GLUCOSE [id number] 09:10:00 Test Item Value Reference Range Comments POC-GLUCOSE METER (BEAKER) 348 mg/dL 70-110 Notified JORDON STAPLETON/TESTED AT [facility] (test opvs=5709) [address] [place] [address] POCT-GLUCOSE [id number] 21:35:00 Test Item Value Reference Range Comments POC-GLUCOSE METER (BEAKER) 209 mg/dL 70-110 TESTED AT [facility] [address] [facility] (test ljkp=7718) [facility] [address] BASIC METABOLIC [id number] 18:44:00 Test Item Value Reference Range Comments SODIUM (BEAKER) (test 140 meq/L 136-145 jqpc=795) POTASSIUM (BEAKER) (test 4.1 meq/L 3.5-5.1 yvsz=590) CHLORIDE (BEAKER) (test 92 meq/L 98-107 lrlq=861) CO2 (BEAKER) (test 41 meq/L 22-29 slvz=604) BLOOD UREA NITROGEN 10 mg/dL 7-21 (BEAKER) (test cpri=137) CREATININE (BEAKER) (test 0.87 mg/dL 0.57-1.25 smiw=665) GLUCOSE RANDOM (BEAKER) 144 mg/dL 70-105 (test sucq=044) CALCIUM (BEAKER) (test 9.4 mg/dL 8.4-10.2 fjdq=315) EGFR (BEAKER) (test 95 mL/min/1.73 sq m ESTIMATED GFR IS NOT awiy=4241) ACCURATE CREATININE CLEARANCE IN PREDICTING GLOMERULAR FILTRATION RATE. ESTIMATED GFR IS NOT APPLICABLE FOR DIALYSIS PATIENTS. CBC W/PLT COUNT & AUTO [id number] 18:10:00 Test Item Value Reference Range Comments WHITE BLOOD CELL COUNT (BEAKER) (test efxh=314) 14.4 K/ L 3.5-10.5 RED BLOOD CELL COUNT (BEAKER) (test zdps=835) 4.56 M/ L 3.93-5.22 HEMOGLOBIN (BEAKER) (test luso=442) 11.8 GM/DL 11.2-15.7 HEMATOCRIT (BEAKER) (test smaf=684) 39.7 % 34.1-44.9 MEAN CORPUSCULAR VOLUME (BEAKER) (test pdpx=328) 87.1 fL 79.4-94.8 MEAN CORPUSCULAR HEMOGLOBIN (BEAKER) (test 25.9 pg 25.6-32.2 vwwi=649) MEAN CORPUSCULAR HEMOGLOBIN CONC (BEAKER) (test 29.7 GM/DL 32.2-35.5 wddd=717) RED CELL DISTRIBUTION WIDTH (BEAKER) (test 15.1 % 11.7-14.4 ezvk=347) PLATELET COUNT (BEAKER) (test phaj=108) 393 K/CU MM 150-450 MEAN PLATELET VOLUME (BEAKER) (test bqmi=074) 11.8 fL 9.4-12.3 NUCLEATED RED BLOOD CELLS (BEAKER) (test 0 /100 WBC 0-0 obuf=998) NEUTROPHILS RELATIVE PERCENT (BEAKER) (test 89 % dxoh=081) LYMPHOCYTES RELATIVE PERCENT (BEAKER) (test 5 % lupc=657) MONOCYTES RELATIVE PERCENT (BEAKER) (test 4 % bjgy=127) EOSINOPHILS RELATIVE PERCENT (BEAKER) (test 2 % oghx=575) BASOPHILS RELATIVE PERCENT (BEAKER) (test 0 % pcrc=440) NEUTROPHILS ABSOLUTE COUNT (BEAKER) (test 12.80 K/ L 1.56-6.13 abaf=538) LYMPHOCYTES ABSOLUTE COUNT (BEAKER) (test 0.68 K/ L 1.18-3.74 uvlp=991) MONOCYTES ABSOLUTE COUNT (BEAKER) (test 0.57 K/ L 0.24-0.36 imlw=266) EOSINOPHILS ABSOLUTE COUNT (BEAKER) (test 0.26 K/ L 0.04-0.36 njyf=891) BASOPHILS ABSOLUTE COUNT (BEAKER) (test 0.04 K/ L 0.01-0.08 picc=483) IMMATURE GRANULOCYTES-RELATIVE PERCENT (BEAKER) 0 % 0-1 (test azwa=1771) POCT-GLUCOSE [id number] 17:13:00 Test Item Value Reference Range Comments POC-GLUCOSE METER (BEAKER) 132 mg/dL 70-110 TESTED AT [address] (test psgl=1309) [facility] [address] POCT-GLUCOSE [id number] 12:52:00 Test Item Value Reference Range Comments POC-GLUCOSE METER (BEAKER) 145 mg/dL 70-110 TESTED AT [address] (test ekpx=9833) [facility] [address] SPIN/CONCENTRATION [id number] 12:12:00 Test Item Value Reference Range Comments CONCENTRATION CHARGED (BEAKER) (test hxuv=7286) Done POCT-GLUCOSE [id number] 09:13:00 Test Item Value Reference Range Comments POC-GLUCOSE METER (BEAKER) 267 mg/dL 70-110 TESTED AT [address] (test uzcd=7699) [facility] [address] POCT-GLUCOSE [id number] 21:53:00 Test Item Value Reference Range Comments POC-GLUCOSE METER (BEAKER) 233 mg/dL 70-110 TESTED AT [address] (test tyoh=4604) [facility] [address] POCT-GLUCOSE [id number] 17:55:00 Test Item Value Reference Range Comments POC-GLUCOSE METER (BEAKER) 202 mg/dL 70-110 TESTED AT [address] (test wfdo=0583) [facility] [address] POCT-GLUCOSE [id number] 13:25:00 Test Item Value Reference Range Comments POC-GLUCOSE METER (BEAKER) 184 mg/dL 70-110 TESTED AT [address] (test ktvo=1801) [facility] [address] POCT-GLUCOSE [id number] 11:30:00 Test Item Value Reference Range Comments POC-GLUCOSE METER (BEAKER) 50 mg/dL 70-110 Notified JORDON STAPLETON/TESTED AT [facility] (test vhfv=2725) [address] [place] [address] POCT-GLUCOSE [id number] 08:52:00 Test Item Value Reference Range Comments POC-GLUCOSE METER (BEAKER) 52 mg/dL 70-110 Notified JORDON STAPLETON/TESTED AT [facility] (test ynhs=9860) [address] [place] [address] BASIC METABOLIC [id number] 04:53:00 Test Item Value Reference Range Comments SODIUM (BEAKER) (test 138 meq/L 136-145 snet=097) POTASSIUM (BEAKER) (test 4.0 meq/L 3.5-5.1 Specimen slightly hxid=086) hemolyzed CHLORIDE (BEAKER) (test 100 meq/L 98-107 nxjr=693) CO2 (BEAKER) (test 31 meq/L 22-29 gmff=579) BLOOD UREA NITROGEN 8 mg/dL 7-21 (BEAKER) (test dhvt=525) CREATININE (BEAKER) (test 0.72 mg/dL 0.57-1.25 Specimen slightly vdku=567) hemolyzed GLUCOSE RANDOM (BEAKER) 182 mg/dL 70-105 (test oauz=279) CALCIUM (BEAKER) (test 8.7 mg/dL 8.4-10.2 lngc=341) EGFR (BEAKER) (test 119 mL/min/1.73 sq m ESTIMATED GFR IS NOT lxbd=1150) ACCURATE CREATININE CLEARANCE IN PREDICTING GLOMERULAR FILTRATION RATE. ESTIMATED GFR IS NOT APPLICABLE FOR DIALYSIS PATIENTS. LACTIC ACID, [id number] 04:32:00 Test Item Value Reference Range Comments LACTATE BLOOD VENOUS (2) (BEAKER) (test 1.0 mmol/L 0.5-2.2 mitd=0276) RAD, ABDOMEN/KUB, 1 VIEW [id number] 23:28:00Reason for exam:->Abdominal painShould this be performed at the bedside?->YesFINAL REPORT Abdomen. HISTORY: Abdominal pain. COMPARISON STUDY: November 16, 2018. FINDINGS: Two supine views of the abdomen demonstrate a significant amount of colonic stool suggesting constipation. No dilated bowel loops are identified to suggest obstruction. Degenerative changes are seen. This film is insensitive for the detection of free air. Signed: Ariana Youngblood MDReport Verified Date/ Time: 01/05/2019 23:28:04 Reading Location: [address] Consult Reading Room POCT- GLUCOSE [id number] 23:26:00 Test Item Value Reference Range Comments POC-GLUCOSE METER (BEAKER) 251 mg/dL 70-110 TESTED AT [facility] [address] [facility] (test eluz=1038) [facility] [address] POCT-GLUCOSE [id number] 19:25:00 Test Item Value Reference Range Comments POC-GLUCOSE METER (BEAKER) 296 mg/dL 70-110 TESTED AT [facility] [address] [facility] (test zuqx=1539) [facility] [address] BASIC METABOLIC [id number] 13:27:00 Test Item Value Reference Range Comments SODIUM (BEAKER) (test 137 meq/L 136-145 joue=640) POTASSIUM (BEAKER) (test 5.0 meq/L 3.5-5.1 iuze=022) CHLORIDE (BEAKER) (test 101 meq/L 98-107 loac=293) CO2 (BEAKER) (test 25 meq/L 22-29 mrhi=653) BLOOD UREA NITROGEN 10 mg/dL 7-21 (BEAKER) (test ursj=539) CREATININE (BEAKER) (test 0.95 mg/dL 0.57-1.25 fyrf=536) GLUCOSE RANDOM (BEAKER) 413 mg/dL 70-105 (test mmus=568) CALCIUM (BEAKER) (test 8.2 mg/dL 8.4-10.2 oava=398) EGFR (BEAKER) (test 86 mL/min/1.73 sq m ESTIMATED GFR IS NOT lfcm=5451) ACCURATE CREATININE CLEARANCE IN PREDICTING GLOMERULAR FILTRATION RATE. ESTIMATED GFR IS NOT APPLICABLE FOR DIALYSIS PATIENTS. [id number] 13:02:00 Test Item Value Reference Range Comments LIPASE (BEAKER) (test ievn=383) 4 U/L 8-78 POCT-GLUCOSE [id number] 12:55:00 Test Item Value Reference Range Comments POC-GLUCOSE METER (BEAKER) 340 mg/dL 70-110 Notified RN MD/TESTED AT [facility] (test bglq=4832) [address] [facility] [address] HEMOGLOBIN [id number] 09:59:00 Test Item Value Reference Range Comments HEMOGLOBIN A1C (BEAKER) (test whfh=590) 10.5 % 4.3-6.1 POCT-GLUCOSE [id number] 08:28:00 Test Item Value Reference Range Comments POC-GLUCOSE METER (BEAKER) 336 mg/dL 70-110 Notified RN /TESTED AT [facility] (test mczb=3399) [address] [facility] [address] [id number] 06:56:00 Test Item Value Reference Range Comments BLOOD UREA NITROGEN (BEAKER) (test gakn=433) 10 mg/dL 7-21 [id number] 06:56:00 Test Item Value Reference Range Comments CREATININE (BEAKER) (test 0.96 mg/dL 0.57-1.25 spjb=663) EGFR (BEAKER) (test 85 mL/min/1.73 sq m ESTIMATED GFR IS NOT fxap=9990) ACCURATE CREATININE CLEARANCE IN PREDICTING GLOMERULAR FILTRATION RATE. ESTIMATED GFR IS NOT APPLICABLE FOR DIALYSIS PATIENTS. POCT-GLUCOSE [id number] 06:30:00 Test Item Value Reference Range Comments POC-GLUCOSE METER (BEAKER) 357 mg/dL 70-110 TESTED AT [address] (test qndn=0619) [facility] [address] LACTIC ACID, [id number] 05:51:00 Test Item Value Reference Range Comments LACTATE BLOOD VENOUS (2) (BEAKER) (test 2.1 mmol/L 0.5-2.2 txxi=9346) SCREEN, [id number] 04:22:00 Test Item Value Reference Range Comments TEST URINE (BEAKER) (test bosw=176) Negative POCT-GLUCOSE [id number] 03:11:00 Test Item Value Reference Range Comments POC-GLUCOSE METER (BEAKER) 403 mg/dL 70-110 TESTED AT [address] (test rybb=7431) [place] [id number] POCT-GLUCOSE [id number] 00:43:00 Test Item Value Reference Range Comments POC-GLUCOSE METER (BEAKER) 430 mg/dL 70-110 TESTED AT [address] (test imtd=1179) [place] [address] BASIC METABOLIC [id number] 22:43:00 Test Item Value Reference Range Comments SODIUM (BEAKER) (test 135 meq/L 136-145 ggnb=012) POTASSIUM (BEAKER) (test 4.9 meq/L 3.5-5.1 mheo=883) CHLORIDE (BEAKER) (test 98 meq/L 98-107 nfgw=323) CO2 (BEAKER) (test 30 meq/L 22-29 bgrz=450) BLOOD UREA NITROGEN 10 mg/dL 7-21 (BEAKER) (test nwkc=273) CREATININE (BEAKER) (test 1.21 mg/dL 0.57-1.25 dquh=050) GLUCOSE RANDOM (BEAKER) 581 mg/dL 70-105 (test papn=675) CALCIUM (BEAKER) (test 8.5 mg/dL 8.4-10.2 zxho=525) EGFR (BEAKER) (test 65 mL/min/1.73 sq m ESTIMATED GFR IS NOT mryw=1181) ACCURATE CREATININE CLEARANCE IN PREDICTING GLOMERULAR FILTRATION RATE. ESTIMATED GFR IS NOT APPLICABLE FOR DIALYSIS PATIENTS. POCT-GLUCOSE [id number] 22:42:00 Test Item Value Reference Range Comments POC-GLUCOSE METER (BEAKER) > mg/dL 70-110 OUTSIDE MEASURING RANGENotified RN (test uymy=9334) MD/TESTED AT [facility] [address] [place] [address] GLUCOSE-STAT [id number] 20:33:00 Test Item Value Reference Range Comments GLUCOSE RANDOM (BEAKER) (test eubk=601) 580 mg/dL 70-110 [id number] 19:57:00 Test Item Value Reference Range Comments MAGNESIUM (BEAKER) (test rtia=474) 1.6 mg/dL 1.6-2.6 [id number] 19:57:00 Test Item Value Reference Range Comments BLOOD UREA NITROGEN (BEAKER) (test dkqs=012) 10 mg/dL 7-21 [id number] 19:57:00 Test Item Value Reference Range Comments CREATININE (BEAKER) (test 1.25 mg/dL 0.57-1.25 jmuj=136) EGFR (BEAKER) (test 63 mL/min/1.73 sq m ESTIMATED GFR IS NOT iipe=5704) ACCURATE CREATININE CLEARANCE IN PREDICTING GLOMERULAR FILTRATION RATE. ESTIMATED GFR IS NOT APPLICABLE FOR DIALYSIS PATIENTS. POCT-GLUCOSE [id number] 15:07:00 Test Item Value Reference Range Comments POC-GLUCOSE METER ([facility] 466 mg/dL 70-110 TESTED AT [address] (test kyma=0919) [place] [id number] RESPIRATORY PANEL [id number] 14:21:00 Test Item Value Reference Range Comments HUMAN METAPNEUMOVIRUS (BEAKER) (test Not detected Not detected, Equivocal dvqg=7124) RHINOVIRUS (BEAKER) (test jfcb=9292) Not detected Not detected, Equivocal INFLUENZA A (BEAKER) (test tklg=8553) Not detected Not detected, Equivocal INFLUENZA A (NO SUBTYPE) (test Not detected, Equivocal wgzp=5037) INFLUENZA A SUBTYPE H1 (BEAKER) (test Not detected, Equivocal ggcl=2891) INFLUENZA A SUBTYPE H3 (BEAKER) (test Not detected, Equivocal owch=1915) INFLUENZA A SUBTYPE H1-2009 (BEAKER) Not detected, Equivocal (test bszf=5936) INFLUENZA B (BEAKER) (test sjrw=2704) Not detected Not detected, Equivocal RESPIRATORY SYNCYTIAL VIRUS (BEAKER) Not detected Not detected, Equivocal (test snmk=1639) PARAINFLUENZA VIRUS 1 (BEAKER) (test Not detected Not detected, Equivocal dffw=0648) PARAINFLUENZA VIRUS 2 (BEAKER) (test Not detected Not detected, Equivocal djjy=8594) PARAINFLUENZA VIRUS 3 (BEAKER) (test Not detected Not detected, Equivocal pbyi=9065) PARAINFLUENZA VIRUS 4 (BEAKER) (test Not detected Not detected, Equivocal okxa=7347) ADENOVIRUS (BEAKER) (test pmjl=5434) Not detected Not detected, Equivocal CORONAVIRUS 229E (BEAKER) (test Not detected Not detected, Equivocal pjkf=2679) CORONAVIRUS HKU1 (BEAKER) (test Not detected Not detected, Equivocal waou=3876) CORONAVIRUS NL63 (BEAKER) (test Not detected Not detected, Equivocal hvza=6341) CORONAVIRUS OC43 (BEAKER) (test Not detected Not detected, Equivocal wfpx=1843) BORDETELLA PERTUSSIS (BEAKER) (test Not detected Not detected, Equivocal ifdh=2304) CHLAMYDOPHILA PNEUMONIAE (BEAKER) (test Not detected Not detected, Equivocal kkxv=9158) MYCOPLASMA PNEUMONIAE (BEAKER) (test Not detected Not detected, Equivocal icni=8421) Other viruses and bacteria not targeted by this PCR panel cannot be excluded; therefore clinical correlation and follow up of serology, culture results, and other molecular studies is required. The results are not intended to be used as the sole means for clinical diagnosis or patient management decisions. This sample was tested at the [facility]ostics Laboratory using the Branch[employer] FilmArray Respiratory Panel. It is FDA cleared and has been verified and approved by the [facility] for clinical use on nasal swab specimens. It is not FDA-cleared for use on bronchial wash/lavage samples. However, for this sample type, validation was performed and test characteristics were determined and approved, by [facility]ostics [facility] for clinical use under the Clinical Laboratory Improvement Amendments (CLIA) of 1988 requirements. Therefore, FDA clearance isnot required. This laboratory is CLIA-certified and [employer] ([employer])-accredited to perform high complexity testing.POCT-GLUCOSE [id number] 08:29:00 Test Item Value Reference Range Comments POC-GLUCOSE METER (BEAKER) 368 mg/dL 70-110 Notified JORDON STAPLETON/TESTED AT [facility] (test zttc=0838) [address] [facility] [address] POCT-GLUCOSE [id number] 00:18:00 Test Item Value Reference Range Comments POC-GLUCOSE METER (BEAKER) 218 mg/dL 70-110 TESTED AT [facility] [address] [facility] (test ozxk=4176) [facility] [address] RAPID INFLUENZA A&B [id number] 19:46:00 Test Item Value Reference Range Comments RAPID INFLUENZA A AG (BEAKER) (test Negative Negative, Inconclusive fwxq=6692) RAPID INFLUENZA B AG (BEAKER) (test Negative Negative, Inconclusive ferh=1880) RAD, CHEST, 1 VIEW, NON [id number] 19:27:00Reason for exam:->CHEST PAINShould this be performed at the bedside?->YesFINAL REPORT INDICATION: CHEST PAIN COMPARISON:November 08, 2018 TECHNIQUE: Chest radiograph, single view, portable technique. FINDINGS / IMPRESSION: Upper lung bronchiectasis andfaint opacities suggesting cystic fibrosis. No discrete new parenchymal opacity that would indicate new infection. Right chest port terminates at the cavoatrial junction. Signed: Debbie Enriquez MDReport Verified Date/Time: 01/03/2019 19:27:38 Reading Location: [address] Consult Reading Room Electronically signed by: DEBBIE ENRIQUEZ M.D. on 2018 07:27 PMPOCT-LACTIC ACID, [id number] 19:05:00 Test Item Value Reference Range Comments POC-LACTIC ACID, VENOUS 0.9 mmol/L 0.9-1.7 TESTED AT [place] [address] [address] (BEAKER) (test frrk=7500) [facility] [address] [id number] 18:00:00 Test Item Value Reference Range Comments MAGNESIUM (BEAKER) (test tqpr=070) 1.0 mg/dL 1.6-2.6 BASIC METABOLIC [id number] 17:50:00 Test Item Value Reference Range Comments SODIUM (BEAKER) (test 140 meq/L 136-145 ltrj=035) POTASSIUM (BEAKER) (test 3.5 meq/L 3.5-5.1 kife=214) CHLORIDE (BEAKER) (test 99 meq/L 98-107 ndzx=424) CO2 (BEAKER) (test 33 meq/L 22-29 gzun=362) BLOOD UREA NITROGEN 4 mg/dL 7-21 (BEAKER) (test mqti=938) CREATININE (BEAKER) (test 0.67 mg/dL 0.57-1.25 ujfh=446) GLUCOSE RANDOM (BEAKER) 150 mg/dL 70-105 (test fgfn=797) CALCIUM (BEAKER) (test 8.7 mg/dL 8.4-10.2 uoat=752) EGFR (BEAKER) (test 129 mL/min/1.73 sq m ESTIMATED GFR IS NOT dsjx=5917) ACCURATE CREATININE CLEARANCE IN PREDICTING GLOMERULAR FILTRATION RATE. ESTIMATED GFR IS NOT APPLICABLE FOR DIALYSIS PATIENTS. HEPATIC FUNCTION [id number] 17:50:00 Test Item Value Reference Range Comments TOTAL PROTEIN (BEAKER) (test lkiq=444) 7.4 gm/dL 6.0-8.3 ALBUMIN (BEAKER) (test oetf=2010) 2.5 g/dL 3.5-5.0 BILIRUBIN TOTAL (BEAKER) (test cipb=137) 0.1 mg/dL 0.2-1.2 BILIRUBIN DIRECT (BEAKER) (test ivtv=869) 0.1 mg/dL 0.1-0.5 ALKALINE PHOSPHATASE (BEAKER) (test hwkg=208) 126 U/L 40-150 AST (SGOT) (BEAKER) (test mbjh=703) 14 U/L 5-34 ALT (SGPT) (BEAKER) (test wjgg=990) 6 U/L 6-55 CBC W/PLT COUNT & AUTO [id number] 17:39:00 Test Item Value Reference Range Comments WHITE BLOOD CELL COUNT (BEAKER) (test gbcz=429) 12.5 K/ L 3.5-10.5 RED BLOOD CELL COUNT (BEAKER) (test vkme=191) 4.04 M/ L 3.93-5.22 HEMOGLOBIN (BEAKER) (test nvfe=488) 10.7 GM/DL 11.2-15.7 HEMATOCRIT (BEAKER) (test nulp=826) 35.3 % 34.1-44.9 MEAN CORPUSCULAR VOLUME (BEAKER) (test olvx=352) 87.4 fL 79.4-94.8 MEAN CORPUSCULAR HEMOGLOBIN (BEAKER) (test 26.5 pg 25.6-32.2 xycj=489) MEAN CORPUSCULAR HEMOGLOBIN CONC (BEAKER) (test 30.3 GM/DL 32.2-35.5 ewqm=267) RED CELL DISTRIBUTION WIDTH (BEAKER) (test 15.3 % 11.7-14.4 qmel=007) PLATELET COUNT (BEAKER) (test pejb=565) 434 K/CU MM 150-450 MEAN PLATELET VOLUME (BEAKER) (test qfzq=311) 11.7 fL 9.4-12.3 NUCLEATED RED BLOOD CELLS (BEAKER) (test 0 /100 WBC 0-0 lqyh=337) NEUTROPHILS RELATIVE PERCENT (BEAKER) (test 78 % hlri=577) LYMPHOCYTES RELATIVE PERCENT (BEAKER) (test 13 % dlta=704) MONOCYTES RELATIVE PERCENT (BEAKER) (test 5 % wyir=549) EOSINOPHILS RELATIVE PERCENT (BEAKER) (test 3 % wtzr=935) BASOPHILS RELATIVE PERCENT (BEAKER) (test 0 % nexv=608) NEUTROPHILS ABSOLUTE COUNT (BEAKER) (test 9.79 K/ L 1.56-6.13 eqkm=387) LYMPHOCYTES ABSOLUTE COUNT (BEAKER) (test 1.67 K/ L 1.18-3.74 pofh=143) MONOCYTES ABSOLUTE COUNT (BEAKER) (test 0.68 K/ L 0.24-0.36 rzyg=804) EOSINOPHILS ABSOLUTE COUNT (BEAKER) (test 0.32 K/ L 0.04-0.36 yfmg=950) BASOPHILS ABSOLUTE COUNT (BEAKER) (test 0.04 K/ L 0.01-0.08 hffa=876) IMMATURE GRANULOCYTES-RELATIVE PERCENT (BEAKER) 0 % 0-1 (test ogih=9469) AFB CULTURE + [id number] 12:53:00 Test Item Value Reference Range Comments CULTURE (BEAKER) (test No acid-fast bacilli isolated tslx=0549) in 42 days AFB SMEAR (BEAKER) (test No acid fast bacilli seen okzs=537) FUNGUS CULTURE + [id number] 18:00:00 Test Item Value Reference Range Comments CULTURE (BEAKER) (test No fungus isolated in 28 days ffgc=0949) FUNGUS SMEAR (BEAKER) (test No fungi seen lysg=9390) POCT-GLUCOSE [id number] 12:41:00 Test Item Value Reference Range Comments POC-GLUCOSE METER (BEAKER) 59 mg/dL 70-110 Notified JORDON STAPLETON/TESTED AT [facility] (test nhcg=2969) [address] [facility] [address] POCT-GLUCOSE [id number] 08:51:00 Test Item Value Reference Range Comments POC-GLUCOSE METER (BEAKER) 461 mg/dL 70-110 Notified JORDON STAPLETON/TESTED AT [facility] (test fufz=3452) [address] [facility] [address] [id number] 06:03:00 Test Item Value Reference Range Comments PHOSPHORUS (BEAKER) (test tvpk=108) 3.7 mg/dL 2.3-4.7 [id number] 06:03:00 Test Item Value Reference Range Comments MAGNESIUM (BEAKER) (test uzgj=138) 1.6 mg/dL 1.6-2.6 BASIC METABOLIC [id number] 06:03:00 Test Item Value Reference Range Comments SODIUM (BEAKER) (test 134 meq/L 136-145 ruwg=905) POTASSIUM (BEAKER) (test 4.5 meq/L 3.5-5.1 qmgq=724) CHLORIDE (BEAKER) (test 97 meq/L 98-107 gfjt=731) CO2 (BEAKER) (test 33 meq/L 22-29 yhwi=791) BLOOD UREA NITROGEN 28 mg/dL 7-21 (BEAKER) (test gotj=997) CREATININE (BEAKER) (test 0.73 mg/dL 0.57-1.25 wuui=953) GLUCOSE RANDOM (BEAKER) 285 mg/dL 70-105 (test acgj=120) CALCIUM (BEAKER) (test 8.4 mg/dL 8.4-10.2 oiue=564) EGFR (BEAKER) (test 117 mL/min/1.73 sq m ESTIMATED GFR IS NOT ogxq=8067) ACCURATE CREATININE CLEARANCE IN PREDICTING GLOMERULAR FILTRATION RATE. ESTIMATED GFR IS NOT APPLICABLE FOR DIALYSIS PATIENTS. POCT-GLUCOSE [id number] 21:37:00 Test Item Value Reference Range Comments POC-GLUCOSE METER (BEAKER) 207 mg/dL 70-110 TESTED AT [facility] [address] (test rrvh=8196) [facility] [address] POCT-GLUCOSE [id number] 18:28:00 Test Item Value Reference Range Comments POC-GLUCOSE METER (BEAKER) 207 mg/dL 70-110 TESTED AT [address] (test sdjn=3250) [facility] [address] POCT-GLUCOSE [id number] 12:15:00 Test Item Value Reference Range Comments POC-GLUCOSE METER (BEAKER) 91 mg/dL 70-110 TESTED AT [address] (test wytm=7091) [facility] [address] POCT-GLUCOSE [id number] 08:38:00 Test Item Value Reference Range Comments POC-GLUCOSE METER (BEAKER) 189 mg/dL 70-110 TESTED AT [address] (test gtri=1358) [facility] [address] [id number] 05:25:00 Test Item Value Reference Range Comments PHOSPHORUS (BEAKER) (test rjru=501) 4.0 mg/dL 2.3-4.7 [id number] 05:25:00 Test Item Value Reference Range Comments MAGNESIUM (BEAKER) (test cmvj=784) 1.4 mg/dL 1.6-2.6 BASIC METABOLIC [id number] 05:25:00 Test Item Value Reference Range Comments SODIUM (BEAKER) (test 134 meq/L 136-145 mssp=593) POTASSIUM (BEAKER) (test 4.8 meq/L 3.5-5.1 trxl=172) CHLORIDE (BEAKER) (test 95 meq/L 98-107 qpnn=469) CO2 (BEAKER) (test 32 meq/L 22-29 wawm=721) BLOOD UREA NITROGEN 30 mg/dL 7-21 (BEAKER) (test flvj=504) CREATININE (BEAKER) (test 0.78 mg/dL 0.57-1.25 gfuo=652) GLUCOSE RANDOM (BEAKER) 288 mg/dL 70-105 (test smzu=916) CALCIUM (BEAKER) (test 8.3 mg/dL 8.4-10.2 uqan=708) EGFR (BEAKER) (test 108 mL/min/1.73 sq m ESTIMATED GFR IS NOT hzwo=8439) ACCURATE CREATININE CLEARANCE IN PREDICTING GLOMERULAR FILTRATION RATE. ESTIMATED GFR IS NOT APPLICABLE FOR DIALYSIS PATIENTS. POCT-GLUCOSE [id number] 21:35:00 Test Item Value Reference Range Comments POC-GLUCOSE METER (BEAKER) 170 mg/dL 70-110 TESTED AT [address] (test trrf=8187) [place] [id number] POCT-GLUCOSE [id number] 18:20:00 Test Item Value Reference Range Comments POC-GLUCOSE METER (BEAKER) 276 mg/dL 70-110 TESTED AT [address] (test cxzs=6836) [place] [address] RAD, ABDOMEN/KUB, 1 VIEW [id number] 15:00:00Reason for exam:->Abd distensionShould this be performed [...] the colon. Nonspecific abdomen exam. Signed: Sravanthi Flores Verified Date/Time: 11/16/2018 15:00:01 Reading Location: [facility] [id number] Consult Reading Room 03: 00 PMPOCT-GLUCOSE [id number] 13:21:00 Test Item Value Reference Range Comments POC-GLUCOSE METER (BEAKER) 108 mg/dL 70-110 TESTED AT [address] (test hnaw=9875) [place] [id number] BASIC METABOLIC [id number] 08:06:00 Test Item Value Reference Range Comments SODIUM (BEAKER) (test 138 meq/L 136-145 sanp=995) POTASSIUM (BEAKER) (test 4.5 meq/L 3.5-5.1 kdnr=702) CHLORIDE (BEAKER) (test 92 meq/L 98-107 mync=997) CO2 (BEAKER) (test 40 meq/L 22-29 thwh=728) BLOOD UREA NITROGEN 25 mg/dL 7-21 (BEAKER) (test bdlp=852) CREATININE (BEAKER) (test 0.71 mg/dL 0.57-1.25 rzli=180) GLUCOSE RANDOM (BEAKER) 162 mg/dL 70-105 (test fnyd=071) CALCIUM (BEAKER) (test 8.2 mg/dL 8.4-10.2 vvis=747) EGFR (BEAKER) (test 121 mL/min/1.73 sq m ESTIMATED GFR IS NOT lebm=1120) ACCURATE CREATININE CLEARANCE IN PREDICTING GLOMERULAR FILTRATION RATE. ESTIMATED GFR IS NOT APPLICABLE FOR DIALYSIS PATIENTS. [id number] 08:03:00 Test Item Value Reference Range Comments PHOSPHORUS (BEAKER) (test qihd=076) 3.2 mg/dL 2.3-4.7 [id number] 08:03:00 Test Item Value Reference Range Comments MAGNESIUM (BEAKER) (test eysb=659) 1.1 mg/dL 1.6-2.6 HEPATIC FUNCTION [id number] 08:03:00 Test Item Value Reference Range Comments TOTAL PROTEIN (BEAKER) (test lnpf=208) 6.4 gm/dL 6.0-8.3 ALBUMIN (BEAKER) (test aylo=0169) 2.5 g/dL 3.5-5.0 BILIRUBIN TOTAL (BEAKER) (test rlrw=328) 0.1 mg/dL 0.2-1.2 BILIRUBIN DIRECT (BEAKER) (test tlkx=754) 0.1 mg/dL 0.1-0.5 ALKALINE PHOSPHATASE (BEAKER) (test njrs=343) 126 U/L 40-150 AST (SGOT) (BEAKER) (test tnxn=273) 29 U/L 5-34 ALT (SGPT) (BEAKER) (test whbm=712) 35 U/L 6-55 POCT-GLUCOSE [id number] 02:11:00 Test Item Value Reference Range Comments POC-GLUCOSE METER (BEAKER) 171 mg/dL 70-110 TESTED AT [address] (test ptbr=0786) [facility] [address] POCT-GLUCOSE [id number] 22:03:00 Test Item Value Reference Range Comments POC-GLUCOSE METER (BEAKER) 264 mg/dL 70-110 TESTED AT [address] (test kzil=1423) [facility] [address] POCT-GLUCOSE [id number] 18:03:00 Test Item Value Reference Range Comments POC-GLUCOSE METER (BEAKER) 293 mg/dL 70-110 TESTED AT [address] (test rzct=6328) [facility] [address] POCT-GLUCOSE [id number] 12:27:00 Test Item Value Reference Range Comments POC-GLUCOSE METER (BEAKER) 125 mg/dL 70-110 TESTED AT [address] (test ddku=3884) [place] [id number] POCT-GLUCOSE [id number] 08:21:00 Test Item Value Reference Range Comments POC-GLUCOSE METER (BEAKER) 180 mg/dL 70-110 TESTED AT [address] (test uedk=3518) [facility] [address] [id number] 07:20:00 Test Item Value Reference Range Comments BLOOD UREA NITROGEN (BEAKER) (test evhl=051) 18 mg/dL 7-21 [id number] 07:20:00 Test Item Value Reference Range Comments CREATININE (BEAKER) (test 0.72 mg/dL 0.57-1.25 Specimen slightly rnaj=457) hemolyzed EGFR (BEAKER) (test 119 mL/min/1.73 sq m ESTIMATED GFR IS NOT ajkl=1492) ACCURATE CREATININE CLEARANCE IN PREDICTING GLOMERULAR FILTRATION RATE. ESTIMATED GFR IS NOT APPLICABLE FOR DIALYSIS PATIENTS. CBC W/PLT COUNT & AUTO [id number] 07:03:00 Test Item Value Reference Range Comments WHITE BLOOD CELL COUNT (BEAKER) (test dbvs=223) 15.3 K/ L 3.5-10.5 RED BLOOD CELL COUNT (BEAKER) (test wunz=940) 3.58 M/ L 3.93-5.22 HEMOGLOBIN (BEAKER) (test eywx=161) 9.3 GM/DL 11.2-15.7 HEMATOCRIT (BEAKER) (test phsr=920) 32.0 % 34.1-44.9 MEAN CORPUSCULAR VOLUME (BEAKER) (test zuwq=464) 89.4 fL 79.4-94.8 MEAN CORPUSCULAR HEMOGLOBIN (BEAKER) (test 26.0 pg 25.6-32.2 umte=531) MEAN CORPUSCULAR HEMOGLOBIN CONC (BEAKER) (test 29.1 GM/DL 32.2-35.5 ytvp=416) RED CELL DISTRIBUTION WIDTH (BEAKER) (test 16.2 % 11.7-14.4 rhbx=992) PLATELET COUNT (BEAKER) (test umcd=887) 420 K/CU MM 150-450 MEAN PLATELET VOLUME (BEAKER) (test cdjw=440) 10.8 fL 9.4-12.3 NUCLEATED RED BLOOD CELLS (BEAKER) (test 0 /100 WBC 0-0 gqsn=631) NEUTROPHILS RELATIVE PERCENT (BEAKER) (test 86 % vksj=814) LYMPHOCYTES RELATIVE PERCENT (BEAKER) (test 7 % ktia=487) MONOCYTES RELATIVE PERCENT (BEAKER) (test 5 % stxu=403) EOSINOPHILS RELATIVE PERCENT (BEAKER) (test 0 % ajnb=036) BASOPHILS RELATIVE PERCENT (BEAKER) (test 0 % kpho=727) NEUTROPHILS ABSOLUTE COUNT (BEAKER) (test 13.20 K/ L 1.56-6.13 cbho=672) LYMPHOCYTES ABSOLUTE COUNT (BEAKER) (test 1.07 K/ L 1.18-3.74 ojgp=591) MONOCYTES ABSOLUTE COUNT (BEAKER) (test 0.75 K/ L 0.24-0.36 mpvv=070) EOSINOPHILS ABSOLUTE COUNT (BEAKER) (test 0.03 K/ L 0.04-0.36 mawk=453) BASOPHILS ABSOLUTE COUNT (BEAKER) (test 0.02 K/ L 0.01-0.08 fshm=511) IMMATURE GRANULOCYTES-RELATIVE PERCENT (BEAKER) 1 % 0-1 (test bkcy=9513) POCT-GLUCOSE [id number] 02:14:00 Test Item Value Reference Range Comments POC-GLUCOSE METER (BEAKER) 239 mg/dL 70-110 TESTED AT [address] (test xmtg=1152) [facility] [address] POCT-GLUCOSE [id number] 21:33:00 Test Item Value Reference Range Comments POC-GLUCOSE METER (BEAKER) 108 mg/dL 70-110 TESTED AT [address] (test vuny=5900) [facility] [address] POCT-GLUCOSE [id number] 17:52:00 Test Item Value Reference Range Comments POC-GLUCOSE METER (BEAKER) 101 mg/dL 70-110 TESTED AT [address] (test bzhq=3956) [facility] [address] POCT-GLUCOSE [id number] 13:35:00 Test Item Value Reference Range Comments POC-GLUCOSE METER (BEAKER) 308 mg/dL 70-110 Notified JORDON STAPLETON/TESTED AT [facility] (test rugr=5198) [address] [facility] [address] U/S, ABDOMINAL, [id number] 12:38:00Abdomen limited area? Add comment if clarification [...] Contracted gallbladder secondary to recent meal. Signed: Von Jacobs MDReport Verified Date/Time: 11/14/2018 12:38:57 Reading Location: [address] Ultrasound Reading Room [facility] [id number] 11:57:00 Test Item Value Reference Range Comments CULTURE (BEAKER) (test PSEUDOMONAS 4+ Pseudomonas avwp=3434) AERUGINOSA aeruginosa (MUCOID-PHENOTYPE) (Mucoid-phenotype) Amikacin (test code=1) [...] , code=25) Resistant <0 or >4 CULTURE (Band Metrics) (test PSEUDOMONAS 4+ Pseudomonas kthg=1479) AERUGINOSA aeruginosa Amikacin (test code=1) Susceptible 0-16 [...] or >4 1+ Normal respiratory derick presentPOCT-GLUCOSE [id number] 09:19:00 Test Item Value Reference Range Comments POC-GLUCOSE METER (BEAKER) 385 mg/dL 70-110 Notified JORDON STAPLETON/TESTED AT [facility] (test kvij=3899) [address] [facility] [address] COMPREHENSIVE METABOLIC [id number] 08:26:00 Test Item Value Reference Range Comments TOTAL PROTEIN (BEAKER) 6.7 gm/dL 6.0-8.3 (test mlgm=838) ALBUMIN (BEAKER) (test 2.6 g/dL 3.5-5.0 xbwm=8520) ALKALINE PHOSPHATASE 138 U/L 40-150 (BEAKER) (test izwc=153) BILIRUBIN TOTAL (BEAKER) 0.1 mg/dL 0.2-1.2 (test rcgp=764) SODIUM (BEAKER) (test 138 meq/L 136-145 nkad=324) POTASSIUM (BEAKER) (test 4.3 meq/L 3.5-5.1 lrqm=265) CHLORIDE (BEAKER) (test 95 meq/L 98-107 pvhz=397) CO2 (BEAKER) (test 36 meq/L 22-29 vjkn=133) BLOOD UREA NITROGEN 23 mg/dL 7-21 (BEAKER) (test pndo=869) CREATININE (BEAKER) (test 0.74 mg/dL 0.57-1.25 jlto=189) GLUCOSE RANDOM (BEAKER) 180 mg/dL 70-105 (test pxfr=269) CALCIUM (BEAKER) (test 8.6 mg/dL 8.4-10.2 pnbv=519) AST (SGOT) (BEAKER) (test 30 U/L 5-34 itjv=138) ALT (SGPT) (BEAKER) (test 47 U/L 6-55 sobp=375) EGFR (BEAKER) (test 115 mL/min/1.73 sq ESTIMATED GFR IS NOT fyls=1189) m ACCURATE CREATININE CLEARANCE IN PREDICTING GLOMERULAR FILTRATION RATE. ESTIMATED GFR IS NOT APPLICABLE FOR DIALYSIS PATIENTS. POCT-GLUCOSE [id number] 02:51:00 Test Item Value Reference Range Comments POC-GLUCOSE METER (BEAKER) 353 mg/dL 70-110 Notified JORDON STAPLETON/TESTED AT [facility] (test spmj=0449) [address] [facility] [address] SCREEN, [id number] 22:52:00 Test Item Value Reference Range Comments TEST URINE (BEAKER) (test ywme=551) Negative POCT-GLUCOSE [id number] 21:27:00 Test Item Value Reference Range Comments POC-GLUCOSE METER (BEAKER) 221 mg/dL 70-110 TESTED AT [address] (test vbzp=1854) [place] [id number] POCT-GLUCOSE [id number] 19:14:00 Test Item Value Reference Range Comments POC-GLUCOSE METER (BEAKER) 60 mg/dL 70-110 Notified JORDON STAPLETON/TESTED AT [facility] (test vfpr=1911) [address] [place] [address] POCT-GLUCOSE [id number] 12:58:00 Test Item Value Reference Range Comments POC-GLUCOSE METER (BEAKER) 327 mg/dL 70-110 TESTED AT [address] (test lzre=5229) [place] [address] POCT-GLUCOSE [id number] 08:13:00 Test Item Value Reference Range Comments POC-GLUCOSE METER (BEAKER) 372 mg/dL 70-110 TESTED AT [address] (test psuj=8311) [place] [address] [id number] 05:57:00 Test Item Value Reference Range Comments BLOOD UREA NITROGEN (BEAKER) (test bbim=454) 14 mg/dL 7-21 [id number] 05:57:00 Test Item Value Reference Range Comments CREATININE (BEAKER) (test 0.72 mg/dL 0.57-1.25 wrhj=811) EGFR (BEAKER) (test 119 mL/min/1.73 sq m ESTIMATED GFR IS NOT adup=3234) ACCURATE CREATININE CLEARANCE IN PREDICTING GLOMERULAR FILTRATION RATE. ESTIMATED GFR IS NOT APPLICABLE FOR DIALYSIS PATIENTS. POCT-GLUCOSE [id number] 01:39:00 Test Item Value Reference Range Comments POC-GLUCOSE METER (BEAKER) 267 mg/dL 70-110 TESTED AT [address] (test ihij=3173) [place] [id number] POCT-GLUCOSE [id number] 22:42:00 Test Item Value Reference Range Comments POC-GLUCOSE METER (BEAKER) 97 mg/dL 70-110 TESTED AT [address] (test mlaw=3983) [place] [address] POCT-GLUCOSE [id number] 21:47:00 Test Item Value Reference Range Comments POC-GLUCOSE METER (BEAKER) 64 mg/dL 70-110 Notified JORDON STAPLETON/TESTED AT [facility] (test runc=6683) [address] [facility] [address] POCT-GLUCOSE [id number] 18:48:00 Test Item Value Reference Range Comments POC-GLUCOSE METER (BEAKER) 198 mg/dL 70-110 TESTED AT [facility] [address] (test dvkh=5625) [facility] [address] COMPREHENSIVE METABOLIC [id number] 18:06:00 Test Item Value Reference Range Comments TOTAL PROTEIN (BEAKER) 6.9 gm/dL 6.0-8.3 (test gvtt=399) ALBUMIN (BEAKER) (test 2.6 g/dL 3.5-5.0 znkf=8054) ALKALINE PHOSPHATASE 151 U/L 40-150 (BEAKER) (test vpic=344) BILIRUBIN TOTAL (BEAKER) 0.1 mg/dL 0.2-1.2 (test jlcb=743) SODIUM (BEAKER) (test 139 meq/L 136-145 oftq=366) POTASSIUM (BEAKER) (test 3.6 meq/L 3.5-5.1 gsty=096) CHLORIDE (BEAKER) (test 99 meq/L 98-107 qveu=996) CO2 (BEAKER) (test 30 meq/L 22-29 wekg=479) BLOOD UREA NITROGEN 12 mg/dL 7-21 (BEAKER) (test ukrc=668) CREATININE (BEAKER) (test 0.80 mg/dL 0.57-1.25 csnw=139) GLUCOSE RANDOM (BEAKER) 169 mg/dL 70-105 (test raiq=461) CALCIUM (BEAKER) (test 8.9 mg/dL 8.4-10.2 nojt=709) AST (SGOT) (BEAKER) (test 170 U/L 5-34 seuw=718) ALT (SGPT) (BEAKER) (test 77 U/L 6-55 ivxx=354) EGFR (BEAKER) (test 105 mL/min/1.73 sq ESTIMATED GFR IS NOT fkgz=7315) m ACCURATE CREATININE CLEARANCE IN PREDICTING GLOMERULAR FILTRATION RATE. ESTIMATED GFR IS NOT APPLICABLE FOR DIALYSIS PATIENTS. [id number] 18:06:00 Test Item Value Reference Range Comments LIPASE (BEAKER) (test zshw=166) < U/L 8-78 URINALYSIS WITH MICROSCOPIC IF [id number] 17:06:00 Test Item Value Reference Range Comments COLOR (BEAKER) (test ectg=317) Yellow CLARITY (BEAKER) (test mjir=846) Clear SPECIFIC GRAVITY UA (BEAKER) (test ikhn=405) 1.014 1.001-1.035 PH UA (BEAKER) (test ktud=471) 7.0 5.0-8.0 PROTEIN UA (BEAKER) (test qpsk=622) 70 mg/dL Negative GLUCOSE UA (BEAKER) (test umjw=723) Negative Negative KETONES UA (BEAKER) (test qvav=699) Trace Negative BILIRUBIN UA (BEAKER) (test cunt=178) Negative Negative BLOOD UA (BEAKER) (test xciz=253) Negative Negative NITRITE UA (BEAKER) (test qloe=147) Negative Negative LEUKOCYTE ESTERASE UA (BEAKER) (test spxt=915) Negative Negative UROBILINOGEN UA (BEAKER) (test onpk=907) 0.2 mg/dL 0.2-1.0 SOURCE(BEAKER) (test enbe=9902) URINALYSIS [id number] 17:06:00 Test Item Value Reference Range Comments RBC UA (BEAKER) (test cwpt=912) 1 /HPF WBC UA (BEAKER) (test qeaw=959) 8 /HPF SQUAMOUS EPITHELIAL (BEAKER) (test vmcu=812) 1 /HPF POCT-GLUCOSE [id number] 13:05:00 Test Item Value Reference Range Comments POC-GLUCOSE METER (BEAKER) 120 mg/dL 70-110 TESTED AT [address] (test yjlz=9510) [facility] [address] RAD, ABDOMEN/KUB, 1 VIEW [id number] 12:20:00Reason for exam:->abdominal painFINAL REPORT ONE VIEW [...] IMPRESSION: Unremarkable bowel gas pattern. Signed: Leonarda Rosas MDReport Verified Date/Time: 2018 12:20:31 Reading Location: [address] Transitional Reading Room [id number] 08:09:00 Test Item Value Reference Range Comments BLOOD UREA NITROGEN (BEAKER) (test xbqw=997) 12 mg/dL 7-21 [id number] 08:09:00 Test Item Value Reference Range Comments CREATININE (BEAKER) (test 0.72 mg/dL 0.57-1.25 yijb=369) EGFR (BEAKER) (test 119 mL/min/1.73 sq m ESTIMATED GFR IS NOT cerb=7673) ACCURATE CREATININE CLEARANCE IN PREDICTING GLOMERULAR FILTRATION RATE. ESTIMATED GFR IS NOT APPLICABLE FOR DIALYSIS PATIENTS. POCT-GLUCOSE [id number] 08:05:00 Test Item Value Reference Range Comments POC-GLUCOSE METER (BEAKER) 144 mg/dL 70-110 TESTED AT [address] (test vfmd=3088) [facility] [address] POCT-GLUCOSE [id number] 03:58:00 Test Item Value Reference Range Comments POC-GLUCOSE METER (BEAKER) 316 mg/dL 70-110 Notified JORDON STAPLETON/TESTED AT [facility] (test bjye=3499) [address] [place] [address] POCT-GLUCOSE [id number] 21:17:00 Test Item Value Reference Range Comments POC-GLUCOSE METER (BEAKER) 238 mg/dL 70-110 TESTED AT [address] (test xijh=3819) [facility] [address] POCT-GLUCOSE [id number] 18:22:00 Test Item Value Reference Range Comments POC-GLUCOSE METER (BEAKER) 278 mg/dL 70-110 TESTED AT [address] (test drzq=7894) [facility] [address] POCT-GLUCOSE [id number] 14:14:00 Test Item Value Reference Range Comments POC-GLUCOSE METER (BEAKER) 137 mg/dL 70-110 TESTED AT [address] (test wtnl=4742) [facility] [address] POCT-GLUCOSE [id number] 09:28:00 Test Item Value Reference Range Comments POC-GLUCOSE METER (BEAKER) 356 mg/dL 70-110 TESTED AT [address] (test nizr=3708) [facility] [address] [id number] 07:01:00 Test Item Value Reference Range Comments BLOOD UREA NITROGEN (BEAKER) (test vwlx=179) 17 mg/dL 7-21 [id number] 07:01:00 Test Item Value Reference Range Comments CREATININE (BEAKER) (test 0.77 mg/dL 0.57-1.25 gbja=630) EGFR (BEAKER) (test 110 mL/min/1.73 sq m ESTIMATED GFR IS NOT lrym=1243) ACCURATE CREATININE CLEARANCE IN PREDICTING GLOMERULAR FILTRATION RATE. ESTIMATED GFR IS NOT APPLICABLE FOR DIALYSIS PATIENTS. POCT-GLUCOSE [id number] 02:54:00 Test Item Value Reference Range Comments POC-GLUCOSE METER (BEAKER) 347 mg/dL 70-110 Notified JORDON STAPLETON/TESTED AT [facility] (test dbmy=0244) [address] [place], [place] [id number] POCT-GLUCOSE [id number] 22:43:00 Test Item Value Reference Range Comments POC-GLUCOSE METER (BEAKER) 139 mg/dL 70-110 TESTED AT [address] (test lzcn=2070) [place] [id number] POCT-GLUCOSE [id number] 19:28:00 Test Item Value Reference Range Comments POC-GLUCOSE METER (BEAKER) 91 mg/dL 70-110 TESTED AT [address] (test otdp=7651) [place] [address] POCT-GLUCOSE [id number] 18:09:00 Test Item Value Reference Range Comments POC-GLUCOSE METER (BEAKER) 137 mg/dL 70-110 TESTED AT [address] (test tiuv=3282) [place] [address] BASIC METABOLIC [id number] 17:48:00 Test Item Value Reference Range Comments SODIUM (BEAKER) (test 139 meq/L 136-145 diba=406) POTASSIUM (BEAKER) (test 3.5 meq/L 3.5-5.1 zaee=459) CHLORIDE (BEAKER) (test 101 meq/L 98-107 vejr=405) CO2 (BEAKER) (test 29 meq/L 22-29 ebyl=988) BLOOD UREA NITROGEN 19 mg/dL 7-21 (BEAKER) (test qpoy=355) CREATININE (BEAKER) (test 0.79 mg/dL 0.57-1.25 jqbo=462) GLUCOSE RANDOM (BEAKER) 119 mg/dL 70-105 (test fyqq=137) CALCIUM (BEAKER) (test 8.7 mg/dL 8.4-10.2 ewel=324) EGFR (BEAKER) (test 107 mL/min/1.73 sq m ESTIMATED GFR IS NOT ozhn=8412) ACCURATE CREATININE CLEARANCE IN PREDICTING GLOMERULAR FILTRATION RATE. ESTIMATED GFR IS NOT APPLICABLE FOR DIALYSIS PATIENTS. POCT-GLUCOSE [id number] 12:39:00 Test Item Value Reference Range Comments POC-GLUCOSE METER (BEAKER) 380 mg/dL 70-110 Notified JORDON STAPLETON/TESTED AT [facility] (test tbvw=4595) [address] [place] [address] POCT-GLUCOSE [id number] 08:22:00 Test Item Value Reference Range Comments POC-GLUCOSE METER (BEAKER) 266 mg/dL 70-110 TESTED AT [address] (test xhee=3012) [place] [address] [id number] 07:14:00 Test Item Value Reference Range Comments BLOOD UREA NITROGEN (BEAKER) (test gfau=607) 23 mg/dL 7-21 [id number] 07:14:00 Test Item Value Reference Range Comments CREATININE (BEAKER) (test 0.80 mg/dL 0.57-1.25 lyqv=485) EGFR (BEAKER) (test 105 mL/min/1.73 sq m ESTIMATED GFR IS NOT dhdg=7348) ACCURATE CREATININE CLEARANCE IN PREDICTING GLOMERULAR FILTRATION RATE. ESTIMATED GFR IS NOT APPLICABLE FOR DIALYSIS PATIENTS. POCT-GLUCOSE [id number] 05:06:00 Test Item Value Reference Range Comments POC-GLUCOSE METER (BEAKER) 135 mg/dL 70-110 TESTED AT [address] (test ufop=3558) [place] [address] POCT-GLUCOSE [id number] 21:42:00 Test Item Value Reference Range Comments POC-GLUCOSE METER (BEAKER) 226 mg/dL 70-110 TESTED AT [address] (test dtuq=5204) [place] [address] POCT-GLUCOSE [id number] 21:40:00 Test Item Value Reference Range Comments POC-GLUCOSE METER (BEAKER) 238 mg/dL 70-110 TESTED AT [address] (test imzu=7924) [place] [address] BASIC METABOLIC [id number] 17:23:00 Test Item Value Reference Range Comments SODIUM (BEAKER) (test 140 meq/L 136-145 ilii=827) POTASSIUM (BEAKER) (test 4.7 meq/L 3.5-5.1 Specimen slightly usdc=350) hemolyzed CHLORIDE (BEAKER) (test 103 meq/L 98-107 bqeu=573) CO2 (BEAKER) (test 26 meq/L 22-29 epax=304) BLOOD UREA NITROGEN 19 mg/dL 7-21 (BEAKER) (test zjst=488) CREATININE (BEAKER) (test 0.96 mg/dL 0.57-1.25 Specimen slightly thif=005) hemolyzed GLUCOSE RANDOM (BEAKER) 181 mg/dL 70-105 (test usfk=554) CALCIUM (BEAKER) (test 8.9 mg/dL 8.4-10.2 cqcz=093) EGFR (BEAKER) (test 85 mL/min/1.73 sq m ESTIMATED GFR IS NOT tief=3846) ACCURATE CREATININE CLEARANCE IN PREDICTING GLOMERULAR FILTRATION RATE. ESTIMATED GFR IS NOT APPLICABLE FOR DIALYSIS PATIENTS. SPIN/CONCENTRATION [id number] 14:16:00 Test Item Value Reference Range Comments CONCENTRATION CHARGED (BEAKER) (test vpdh=2354) Done POCT-GLUCOSE [id number] 13:50:00 Test Item Value Reference Range Comments POC-GLUCOSE METER (BEAKER) 289 mg/dL 70-110 TESTED AT [address] (test zvth=8759) [place] [address] CF RESPIRATORY [id number] 09:17:00 Test Item Value Reference Range Comments CULTURE ([facility] (test PSEUDOMONAS 4+ Pseudomonas phnk=5212) AERUGINOSA aeruginosa (MUCOID-PHENOTYPE) (Mucoid-phenotype) Amikacin (test code=1) [...] >4 CULTURE (BEAKER) (test PSEUDOMONAS 2+ Pseudomonas mvkz=1417) AERUGINOSA aeruginosa Amikacin (test code=1) Susceptible 0-16 [...] or >4 4+ Normal respiratory derick presentPOCT-GLUCOSE [id number] 08:57:00 Test Item Value Reference Range Comments POC-GLUCOSE METER (BEAKER) 258 mg/dL 70-110 TESTED AT [facility] [address] [facility] (test zswp=4724) [facility] [address] [id number] 06:06:00 Test Item Value Reference Range Comments BLOOD UREA NITROGEN (BEAKER) (test xzeg=883) 15 mg/dL 7-21 [id number] 06:06:00 Test Item Value Reference Range Comments CREATININE (BEAKER) (test 0.85 mg/dL 0.57-1.25 vilq=301) EGFR (BEAKER) (test 98 mL/min/1.73 sq m ESTIMATED GFR IS NOT huzr=5334) ACCURATE CREATININE CLEARANCE IN PREDICTING GLOMERULAR FILTRATION RATE. ESTIMATED GFR IS NOT APPLICABLE FOR DIALYSIS PATIENTS. BASIC METABOLIC [id number] 06:06:00 Test Item Value Reference Range Comments SODIUM (BEAKER) (test 135 meq/L 136-145 dyhu=869) POTASSIUM (BEAKER) (test 5.5 meq/L 3.5-5.1 vjco=579) CHLORIDE (BEAKER) (test 99 meq/L 98-107 qklj=538) CO2 (BEAKER) (test 31 meq/L 22-29 ingg=439) BLOOD UREA NITROGEN 15 mg/dL 7-21 (BEAKER) (test mzkt=468) CREATININE (BEAKER) (test 0.85 mg/dL 0.57-1.25 htyt=294) GLUCOSE RANDOM (BEAKER) 333 mg/dL 70-105 (test vkmx=638) CALCIUM (BEAKER) (test 8.0 mg/dL 8.4-10.2 abbh=985) EGFR (BEAKER) (test 98 mL/min/1.73 sq m ESTIMATED GFR IS NOT ivuj=2816) ACCURATE CREATININE CLEARANCE IN PREDICTING GLOMERULAR FILTRATION RATE. ESTIMATED GFR IS NOT APPLICABLE FOR DIALYSIS PATIENTS. HEMOGLOBIN [id number] 05:36:00 Test Item Value Reference Range Comments HEMOGLOBIN A1C (BEAKER) (test xvgv=410) 11.8 % 4.3-6.1 POCT-GLUCOSE [id number] 05:21:00 Test Item Value Reference Range Comments POC-GLUCOSE METER (BEAKER) 362 mg/dL 70-110 TESTED AT [place] [address] [address] (test ohlr=1292) [facility] [address] POCT-GLUCOSE [id number] 03:44:00 Test Item Value Reference Range Comments POC-GLUCOSE METER (BEAKER) 442 mg/dL 70-110 Notified JORDON STAPLETON/TESTED AT [facility] (test zqed=3364) [address] [facility] [address] COMPREHENSIVE METABOLIC [id number] 02:03:00 Test Item Value Reference Range Comments TOTAL PROTEIN (BEAKER) 7.0 gm/dL 6.0-8.3 (test sssx=150) ALBUMIN (BEAKER) (test 2.5 g/dL 3.5-5.0 wxmk=3371) ALKALINE PHOSPHATASE 179 U/L 40-150 (BEAKER) (test mjqi=590) BILIRUBIN TOTAL (BEAKER) 0.1 mg/dL 0.2-1.2 (test kvje=239) SODIUM (BEAKER) (test 133 meq/L 136-145 yfdn=917) POTASSIUM (BEAKER) (test 6.2 meq/L 3.5-5.1 tmok=599) CHLORIDE (BEAKER) (test 99 meq/L 98-107 dair=119) CO2 (BEAKER) (test 28 meq/L 22-29 zsfm=133) BLOOD UREA NITROGEN 14 mg/dL 7-21 (BEAKER) (test vdyy=170) CREATININE (BEAKER) (test 0.89 mg/dL 0.57-1.25 wkcg=542) GLUCOSE RANDOM (BEAKER) 398 mg/dL 70-105 (test rtiu=805) CALCIUM (BEAKER) (test 7.7 mg/dL 8.4-10.2 luya=244) AST (SGOT) (BEAKER) (test 11 U/L 5-34 brul=998) ALT (SGPT) (BEAKER) (test 7 U/L 6-55 icnb=493) EGFR (BEAKER) (test 93 mL/min/1.73 sq m ESTIMATED GFR IS NOT vghl=4273) ACCURATE CREATININE CLEARANCE IN PREDICTING GLOMERULAR FILTRATION RATE. ESTIMATED GFR IS NOT APPLICABLE FOR DIALYSIS PATIENTS. [id number] 01:59:00 Test Item Value Reference Range Comments PHOSPHORUS (BEAKER) (test wnxr=845) 3.6 mg/dL 2.3-4.7 [id number] 01:59:00 Test Item Value Reference Range Comments MAGNESIUM (BEAKER) (test ecck=292) 1.6 mg/dL 1.6-2.6 GAMMA GLUTAMYL TRANSFERASE (GGT)[id number] 01:59:00 Test Item Value Reference Range Comments GAMMA GLUTAMYL TRANSFERASE (BEAKER) (test xfsl=152) 40 U/L 9-64 LACTIC ACID, VENOUS, WHOLE [id number] 01:57:00 Test Item Value Reference Range Comments LACTATE BLOOD VENOUS (2) (BEAKER) (test 0.9 mmol/L 0.5-2.2 gaua=3686) CBC W/PLT COUNT & AUTO [id number] 01:40:00 Test Item Value Reference Range Comments WHITE BLOOD CELL COUNT (BEAKER) (test zibk=534) 21.2 K/ L 3.5-10.5 RED BLOOD CELL COUNT (BEAKER) (test nxdd=069) 3.67 M/ L 3.93-5.22 HEMOGLOBIN (BEAKER) (test rgml=598) 9.9 GM/DL 11.2-15.7 HEMATOCRIT (BEAKER) (test ahqz=612) 32.4 % 34.1-44.9 MEAN CORPUSCULAR VOLUME (BEAKER) (test drfc=448) 88.3 fL 79.4-94.8 MEAN CORPUSCULAR HEMOGLOBIN (BEAKER) (test 27.0 pg 25.6-32.2 losx=687) MEAN CORPUSCULAR HEMOGLOBIN CONC (BEAKER) (test 30.6 GM/DL 32.2-35.5 qitw=920) RED CELL DISTRIBUTION WIDTH (BEAKER) (test 15.8 % 11.7-14.4 szos=233) PLATELET COUNT (BEAKER) (test zgqg=674) 323 K/CU MM 150-450 MEAN PLATELET VOLUME (BEAKER) (test lcrh=192) 11.1 fL 9.4-12.3 NUCLEATED RED BLOOD CELLS (BEAKER) (test 0 /100 WBC 0-0 osav=188) NEUTROPHILS RELATIVE PERCENT (BEAKER) (test 94 % skrd=718) LYMPHOCYTES RELATIVE PERCENT (BEAKER) (test 3 % fzth=900) MONOCYTES RELATIVE PERCENT (BEAKER) (test 3 % dnqc=817) EOSINOPHILS RELATIVE PERCENT (BEAKER) (test 0 % dqjj=624) BASOPHILS RELATIVE PERCENT (BEAKER) (test 0 % ddvl=810) NEUTROPHILS ABSOLUTE COUNT (BEAKER) (test 19.85 K/ L 1.56-6.13 bsqo=327) LYMPHOCYTES ABSOLUTE COUNT (BEAKER) (test 0.67 K/ L 1.18-3.74 mref=580) MONOCYTES ABSOLUTE COUNT (BEAKER) (test 0.55 K/ L 0.24-0.36 xfjk=103) EOSINOPHILS ABSOLUTE COUNT (BEAKER) (test 0.00 K/ L 0.04-0.36 pcln=058) BASOPHILS ABSOLUTE COUNT (BEAKER) (test 0.03 K/ L 0.01-0.08 pkps=524) IMMATURE GRANULOCYTES-RELATIVE PERCENT (BEAKER) 1 % 0-1 (test gdic=8239) RAD, CHEST, 2 [id number] 21:08:00Reason for exam:->Cystic FibrosisShould this be performed [...] There are no acute-appearing skeletal abnormalities. Signed: Yeni Schmidt Verified Date/Time: 11/08/2018 21:08:35 Reading Location: [facility] Radiology Reading Room AFB CULTURE + [id number] 12:42:00 Test Item Value Reference Range Comments CULTURE (BEAKER) (test No acid-fast bacilli isolated vzfb=6703) in 42 days AFB SMEAR (BEAKER) (test No acid fast bacilli seen nlfg=809) POCT-GLUCOSE [id number] 12:08:00 Test Item Value Reference Range Comments POC-GLUCOSE METER (BEAKER) 140 mg/dL 70-110 TESTED AT [facility] [address] [facility] (test srkk=6040) [facility] [address] COMPREHENSIVE METABOLIC [id number] 10:03:00 Test Item Value Reference Range Comments TOTAL PROTEIN (BEAKER) 6.8 gm/dL 6.0-8.3 (test ibdk=777) ALBUMIN (BEAKER) (test 3.1 g/dL 3.5-5.0 lghf=0845) ALKALINE PHOSPHATASE 98 U/L 40-150 (BEAKER) (test dljg=657) BILIRUBIN TOTAL (BEAKER) 0.2 mg/dL 0.2-1.2 (test dsfv=547) SODIUM (BEAKER) (test 136 meq/L 136-145 eqjf=912) POTASSIUM (BEAKER) (test 4.4 meq/L 3.5-5.1 wxex=700) CHLORIDE (BEAKER) (test 97 meq/L 98-107 uyjn=999) CO2 (BEAKER) (test 33 meq/L 22-29 ujba=051) BLOOD UREA NITROGEN 17 mg/dL 7-21 (BEAKER) (test lzck=678) CREATININE (BEAKER) (test 0.68 mg/dL 0.57-1.25 yhxi=834) GLUCOSE RANDOM (BEAKER) 234 mg/dL 70-105 (test puyk=855) CALCIUM (BEAKER) (test 9.1 mg/dL 8.4-10.2 pjoz=121) AST (SGOT) (BEAKER) (test 12 U/L 5-34 atsr=472) ALT (SGPT) (BEAKER) (test 23 U/L 6-55 omnq=535) EGFR (BEAKER) (test 127 mL/min/1.73 sq ESTIMATED GFR IS NOT zdmk=1269) m ACCURATE CREATININE CLEARANCE IN PREDICTING GLOMERULAR FILTRATION RATE. ESTIMATED GFR IS NOT APPLICABLE FOR DIALYSIS PATIENTS. CBC W/PLT COUNT & AUTO [id number] 09:50:00 Test Item Value Reference Range Comments WHITE BLOOD CELL COUNT (BEAKER) (test wxoh=193) 10.5 K/ L 3.5-10.5 RED BLOOD CELL COUNT (BEAKER) (test uqmo=140) 4.14 M/ L 3.93-5.22 HEMOGLOBIN (BEAKER) (test oifd=537) 11.2 GM/DL 11.2-15.7 HEMATOCRIT (BEAKER) (test zxbe=516) 36.8 % 34.1-44.9 MEAN CORPUSCULAR VOLUME (BEAKER) (test ytwp=500) 88.9 fL 79.4-94.8 MEAN CORPUSCULAR HEMOGLOBIN (BEAKER) (test 27.1 pg 25.6-32.2 cqzr=861) MEAN CORPUSCULAR HEMOGLOBIN CONC (BEAKER) (test 30.4 GM/DL 32.2-35.5 znfe=433) RED CELL DISTRIBUTION WIDTH (BEAKER) (test 17.4 % 11.7-14.4 ydud=465) PLATELET COUNT (BEAKER) (test xbdj=361) 302 K/CU MM 150-450 MEAN PLATELET VOLUME (BEAKER) (test usxu=409) 11.2 fL 9.4-12.3 NUCLEATED RED BLOOD CELLS (BEAKER) (test 0 /100 WBC 0-0 ivmu=923) NEUTROPHILS RELATIVE PERCENT (BEAKER) (test 59 % hdsf=097) LYMPHOCYTES RELATIVE PERCENT (BEAKER) (test 29 % zrjn=763) MONOCYTES RELATIVE PERCENT (BEAKER) (test 8 % wcro=520) EOSINOPHILS RELATIVE PERCENT (BEAKER) (test 4 % qcgr=252) BASOPHILS RELATIVE PERCENT (BEAKER) (test 0 % duqo=767) NEUTROPHILS ABSOLUTE COUNT (BEAKER) (test 6.20 K/ L 1.56-6.13 ywkh=061) LYMPHOCYTES ABSOLUTE COUNT (BEAKER) (test 3.05 K/ L 1.18-3.74 dzkr=680) MONOCYTES ABSOLUTE COUNT (BEAKER) (test 0.85 K/ L 0.24-0.36 wgzi=381) EOSINOPHILS ABSOLUTE COUNT (BEAKER) (test 0.37 K/ L 0.04-0.36 oqdy=693) BASOPHILS ABSOLUTE COUNT (BEAKER) (test 0.02 K/ L 0.01-0.08 myaz=362) IMMATURE GRANULOCYTES-RELATIVE PERCENT (BEAKER) 0 % 0-1 (test qbaj=0160) POCT-GLUCOSE [id number] 09:50:00 Test Item Value Reference Range Comments POC-GLUCOSE METER (BEAKER) 271 mg/dL 70-110 TESTED AT [address] (test hqnh=3249) [facility] [address] POCT-GLUCOSE [id number] 01:59:00 Test Item Value Reference Range Comments POC-GLUCOSE METER (BEAKER) 377 mg/dL 70-110 Notified JORDON STAPLETON/TESTED AT [facility] (test pegr=2133) [address] [place] [address] POCT-GLUCOSE [id number] 21:37:00 Test Item Value Reference Range Comments POC-GLUCOSE METER (BEAKER) 92 mg/dL 70-110 TESTED AT [address] (test pqeo=4847) [facility] [address] POCT-GLUCOSE [id number] 17:50:00 Test Item Value Reference Range Comments POC-GLUCOSE METER (BEAKER) 183 mg/dL 70-110 TESTED AT [facility] [address] [facility] (test oyid=7966) [facility] [address] POCT-GLUCOSE [id number] 13:40:00 Test Item Value Reference Range Comments POC-GLUCOSE METER (BEAKER) 230 mg/dL 70-110 TESTED AT [facility] [address] [facility] (test qbuk=4343) [facility] [address] COMPREHENSIVE METABOLIC [id number] 10:59:00 Test Item Value Reference Range Comments TOTAL PROTEIN (BEAKER) 7.0 gm/dL 6.0-8.3 (test fdmq=974) ALBUMIN (BEAKER) (test 3.2 g/dL 3.5-5.0 ypyc=3274) ALKALINE PHOSPHATASE 100 U/L 40-150 (BEAKER) (test txnd=636) BILIRUBIN TOTAL (BEAKER) 0.2 mg/dL 0.2-1.2 (test ytuj=930) SODIUM (BEAKER) (test 135 meq/L 136-145 xesh=467) POTASSIUM (BEAKER) (test 4.3 meq/L 3.5-5.1 ygad=399) CHLORIDE (BEAKER) (test 97 meq/L 98-107 ybhe=688) CO2 (BEAKER) (test 32 meq/L 22-29 zfok=323) BLOOD UREA NITROGEN 13 mg/dL 7-21 (BEAKER) (test sywb=271) CREATININE (BEAKER) (test 0.67 mg/dL 0.57-1.25 uoyz=035) GLUCOSE RANDOM (BEAKER) 223 mg/dL 70-105 (test mvxm=354) CALCIUM (BEAKER) (test 9.1 mg/dL 8.4-10.2 zdtg=785) AST (SGOT) (BEAKER) (test 14 U/L 5-34 ttmb=393) ALT (SGPT) (BEAKER) (test 27 U/L 6-55 hbgm=199) EGFR (BEAKER) (test 129 mL/min/1.73 sq ESTIMATED GFR IS NOT agnm=5422) m ACCURATE CREATININE CLEARANCE IN PREDICTING GLOMERULAR FILTRATION RATE. ESTIMATED GFR IS NOT APPLICABLE FOR DIALYSIS PATIENTS. CBC W/PLT COUNT & AUTO [id number] 10:45:00 Test Item Value Reference Range Comments WHITE BLOOD CELL COUNT (BEAKER) (test ikvc=421) 12.9 K/ L 3.5-10.5 RED BLOOD CELL COUNT (BEAKER) (test wbhq=410) 4.07 M/ L 3.93-5.22 HEMOGLOBIN (BEAKER) (test ktzf=547) 11.0 GM/DL 11.2-15.7 HEMATOCRIT (BEAKER) (test yuah=839) 36.6 % 34.1-44.9 MEAN CORPUSCULAR VOLUME (BEAKER) (test ogiy=210) 89.9 fL 79.4-94.8 MEAN CORPUSCULAR HEMOGLOBIN (BEAKER) (test 27.0 pg 25.6-32.2 crrh=344) MEAN CORPUSCULAR HEMOGLOBIN CONC (BEAKER) (test 30.1 GM/DL 32.2-35.5 dolr=781) RED CELL DISTRIBUTION WIDTH (BEAKER) (test 17.7 % 11.7-14.4 zhco=205) PLATELET COUNT (BEAKER) (test zhfr=302) 307 K/CU MM 150-450 MEAN PLATELET VOLUME (BEAKER) (test jlms=109) 11.5 fL 9.4-12.3 NUCLEATED RED BLOOD CELLS (BEAKER) (test 0 /100 WBC 0-0 izow=207) NEUTROPHILS RELATIVE PERCENT (BEAKER) (test 65 % ibtb=903) LYMPHOCYTES RELATIVE PERCENT (BEAKER) (test 23 % doek=340) MONOCYTES RELATIVE PERCENT (BEAKER) (test 8 % qbbt=649) EOSINOPHILS RELATIVE PERCENT (BEAKER) (test 3 % fgyl=402) BASOPHILS RELATIVE PERCENT (BEAKER) (test 0 % kvff=449) NEUTROPHILS ABSOLUTE COUNT (BEAKER) (test 8.36 K/ L 1.56-6.13 ukax=991) LYMPHOCYTES ABSOLUTE COUNT (BEAKER) (test 3.01 K/ L 1.18-3.74 qkvz=588) MONOCYTES ABSOLUTE COUNT (BEAKER) (test 1.02 K/ L 0.24-0.36 twio=667) EOSINOPHILS ABSOLUTE COUNT (BEAKER) (test 0.43 K/ L 0.04-0.36 qhon=195) BASOPHILS ABSOLUTE COUNT (BEAKER) (test 0.03 K/ L 0.01-0.08 lhbz=020) IMMATURE GRANULOCYTES-RELATIVE PERCENT (BEAKER) 0 % 0-1 (test exiq=6269) POCT-GLUCOSE [id number] 10:28:00 Test Item Value Reference Range Comments POC-GLUCOSE METER (BEAKER) 276 mg/dL 70-110 TESTED AT [address] (test aoce=7393) [facility] [address] POCT-GLUCOSE [id number] 05:53:00 Test Item Value Reference Range Comments POC-GLUCOSE METER (BEAKER) 379 mg/dL 70-110 Notified JORDON STAPLETON/TESTED AT [facility] (test mtbm=3757) [address] [place] [address] POCT-GLUCOSE [id number] 21:20:00 Test Item Value Reference Range Comments POC-GLUCOSE METER (BEAKER) 139 mg/dL 70-110 TESTED AT [address] (test lndd=7358) [facility] [address] POCT-GLUCOSE [id number] 19:14:00 Test Item Value Reference Range Comments POC-GLUCOSE METER (BEAKER) 302 mg/dL 70-110 TESTED AT [address] (test ycwr=7109) [facility] [address] CBC W/PLT COUNT & AUTO [id number] 15:49:00 Test Item Value Reference Range Comments WHITE BLOOD CELL COUNT (BEAKER) (test fdiw=267) 15.7 K/ L 3.5-10.5 RED BLOOD CELL COUNT (BEAKER) (test uwmf=983) 4.36 M/ L 3.93-5.22 HEMOGLOBIN (BEAKER) (test onrt=475) 11.8 GM/DL 11.2-15.7 HEMATOCRIT (BEAKER) (test yeyd=480) 39.1 % 34.1-44.9 MEAN CORPUSCULAR VOLUME (BEAKER) (test rbdo=281) 89.7 fL 79.4-94.8 MEAN CORPUSCULAR HEMOGLOBIN (BEAKER) (test 27.1 pg 25.6-32.2 kbwr=877) MEAN CORPUSCULAR HEMOGLOBIN CONC (BEAKER) (test 30.2 GM/DL 32.2-35.5 mlar=857) RED CELL DISTRIBUTION WIDTH (BEAKER) (test 18.0 % 11.7-14.4 zbpv=872) PLATELET COUNT (BEAKER) (test luhv=875) 378 K/CU MM 150-450 MEAN PLATELET VOLUME (BEAKER) (test vqxu=811) 11.5 fL 9.4-12.3 NUCLEATED RED BLOOD CELLS (BEAKER) (test 0 /100 WBC 0-0 lzxw=827) (CELLAVISION MANUAL DIFF)2018-10-07 15:49:00 Test Item Value Reference Range Comments NEUTROPHILS - REL (CELLAVISION)(BEAKER) (test 86 % qevy=3091) LYMPHOCYTES - REL (CELLAVISION)(BEAKER) (test 9 % elqk=5490) MONOCYTES - REL (CELLAVISION)(BEAKER) (test 2 % rqky=0603) BANDS - REL (CELLAVISION)(BEAKER) (test 1 % 0-10 jfpx=7495) NEUTROPHILS - ABS (CELLAVISION)(BEAKER) (test 13.50 K/ul 1.56-6.13 puxv=4931) LYMPHOCYTES - ABS (CELLAVISION)(BEAKER) (test 1.41 K/ul 1.18-3.74 bhsr=2427) MONOCYTES - ABS (CELLAVISION)(BEAKER) (test 0.31 K/uL 0.24-0.36 zecf=3667) BANDS - ABS (CELLAVISION)(BEAKER) (test 0.16 K/uL 0.00-0.80 lkvz=5765) TOTAL COUNTED (BEAKER) (test nzib=1413) 100 GIANT PLATELETS (BEAKER) (test rkdo=005) Present VACUOLATED NEUTROPHILS (BEAKER) (test cthr=503) Present PLASMACYTOID LYMPHS(BEAKER) (test rbpu=4476) Present ANISOCYTOSIS (BEAKER) (test nqim=006) 1+ few MACROCYTES (BEAKER) (test vjsv=484) 1+ few ARTIFACT (CELLAVISION)(BEAKER) (test sjui=1383) Present PLATELET CONCENTRATION (CELLAVISION)(BEAKER) Adequate (test dxye=4323) Received comment: User comments: Slide comments:COMPREHENSIVE METABOLIC [id number] 13:36:00 Test Item Value Reference Range Comments TOTAL PROTEIN (BEAKER) 7.5 gm/dL 6.0-8.3 (test pnwl=836) ALBUMIN (BEAKER) (test 3.4 g/dL 3.5-5.0 vojh=5807) ALKALINE PHOSPHATASE 110 U/L 40-150 (BEAKER) (test ifyz=009) BILIRUBIN TOTAL (BEAKER) 0.2 mg/dL 0.2-1.2 (test rpws=509) SODIUM (BEAKER) (test 138 meq/L 136-145 sgyt=439) POTASSIUM (BEAKER) (test 4.6 meq/L 3.5-5.1 szsn=214) CHLORIDE (BEAKER) (test 94 meq/L 98-107 heqt=035) CO2 (BEAKER) (test 35 meq/L 22-29 nljk=207) BLOOD UREA NITROGEN 14 mg/dL 7-21 (BEAKER) (test vewy=867) CREATININE (BEAKER) (test 0.73 mg/dL 0.57-1.25 ibhx=122) GLUCOSE RANDOM (BEAKER) 139 mg/dL 70-105 (test rlcm=322) CALCIUM (BEAKER) (test 9.5 mg/dL 8.4-10.2 cyrs=418) AST (SGOT) (BEAKER) (test 20 U/L 5-34 ljri=285) ALT (SGPT) (BEAKER) (test 36 U/L 6-55 akmi=493) EGFR (BEAKER) (test 117 mL/min/1.73 sq ESTIMATED GFR IS NOT rcla=2311) m ACCURATE CREATININE CLEARANCE IN PREDICTING GLOMERULAR FILTRATION RATE. ESTIMATED GFR IS NOT APPLICABLE FOR DIALYSIS PATIENTS. POCT-GLUCOSE [id number] 12:28:00 Test Item Value Reference Range Comments POC-GLUCOSE METER (BEAKER) 132 mg/dL 70-110 TESTED AT [place] [address] [address] (test mdsa=3258) [facility] [address] POCT-GLUCOSE [id number] 07:46:00 Test Item Value Reference Range Comments POC-GLUCOSE METER (BEAKER) 405 mg/dL 70-110 Notified JORDON STAPLETON/TESTED AT [facility] (test bxha=5130) [address] [place] [address] POCT-GLUCOSE [id number] 02:08:00 Test Item Value Reference Range Comments POC-GLUCOSE METER (BEAKER) 112 mg/dL 70-110 TESTED AT [place] [address] [address] (test oger=9214) [place] [address] POCT-GLUCOSE [id number] 21:19:00 Test Item Value Reference Range Comments POC-GLUCOSE METER (BEAKER) 307 mg/dL 70-110 Notified JORDON STAPLETON/TESTED AT [facility] (test nghb=6814) [address] [facility] [address] COMPREHENSIVE METABOLIC [id number] 21:15:00 Test Item Value Reference Range Comments TOTAL PROTEIN (BEAKER) 6.1 gm/dL 6.0-8.3 (test lnqz=605) ALBUMIN (BEAKER) (test 2.9 g/dL 3.5-5.0 cgrw=8265) ALKALINE PHOSPHATASE 88 U/L 40-150 (BEAKER) (test vcvy=339) BILIRUBIN TOTAL (BEAKER) 0.1 mg/dL 0.2-1.2 (test jamu=866) SODIUM (BEAKER) (test 137 meq/L 136-145 zpxf=561) POTASSIUM (BEAKER) (test 4.1 meq/L 3.5-5.1 jajb=253) CHLORIDE (BEAKER) (test 97 meq/L 98-107 pvep=728) CO2 (BEAKER) (test 30 meq/L 22-29 bvsu=219) BLOOD UREA NITROGEN 13 mg/dL 7-21 (BEAKER) (test dgwq=742) CREATININE (BEAKER) (test 0.84 mg/dL 0.57-1.25 bkzm=345) GLUCOSE RANDOM (BEAKER) 357 mg/dL 70-105 (test szmi=484) CALCIUM (BEAKER) (test 8.4 mg/dL 8.4-10.2 xlqm=434) AST (SGOT) (BEAKER) (test 17 U/L 5-34 ewlh=507) ALT (SGPT) (BEAKER) (test 35 U/L 6-55 ssoe=406) EGFR (BEAKER) (test 99 mL/min/1.73 sq m ESTIMATED GFR IS NOT eeay=6800) ACCURATE CREATININE CLEARANCE IN PREDICTING GLOMERULAR FILTRATION RATE. ESTIMATED GFR IS NOT APPLICABLE FOR DIALYSIS PATIENTS. CBC W/PLT COUNT & AUTO [id number] 20:58:00 Test Item Value Reference Range Comments WHITE BLOOD CELL COUNT (BEAKER) (test drzo=266) 17.1 K/ L 3.5-10.5 RED BLOOD CELL COUNT (BEAKER) (test admd=623) 3.64 M/ L 3.93-5.22 HEMOGLOBIN (BEAKER) (test ynjz=053) 9.7 GM/DL 11.2-15.7 HEMATOCRIT (BEAKER) (test hbic=356) 33.0 % 34.1-44.9 MEAN CORPUSCULAR VOLUME (BEAKER) (test fjlk=505) 90.7 fL 79.4-94.8 MEAN CORPUSCULAR HEMOGLOBIN (BEAKER) (test 26.6 pg 25.6-32.2 gkta=815) MEAN CORPUSCULAR HEMOGLOBIN CONC (BEAKER) (test 29.4 GM/DL 32.2-35.5 zhqh=948) RED CELL DISTRIBUTION WIDTH (BEAKER) (test 18.0 % 11.7-14.4 xghx=267) PLATELET COUNT (BEAKER) (test ruth=576) 326 K/CU MM 150-450 MEAN PLATELET VOLUME (BEAKER) (test jpyg=794) 11.7 fL 9.4-12.3 NUCLEATED RED BLOOD CELLS (BEAKER) (test 0 /100 WBC 0-0 epon=447) NEUTROPHILS RELATIVE PERCENT (BEAKER) (test 89 % waog=889) LYMPHOCYTES RELATIVE PERCENT (BEAKER) (test 7 % mcgu=206) MONOCYTES RELATIVE PERCENT (BEAKER) (test 4 % ocsq=063) EOSINOPHILS RELATIVE PERCENT (BEAKER) (test 0 % xnxb=984) BASOPHILS RELATIVE PERCENT (BEAKER) (test 0 % lztq=702) NEUTROPHILS ABSOLUTE COUNT (BEAKER) (test 15.12 K/ L 1.56-6.13 ffgx=393) LYMPHOCYTES ABSOLUTE COUNT (BEAKER) (test 1.14 K/ L 1.18-3.74 feix=699) MONOCYTES ABSOLUTE COUNT (BEAKER) (test 0.67 K/ L 0.24-0.36 iffm=082) EOSINOPHILS ABSOLUTE COUNT (BEAKER) (test 0.02 K/ L 0.04-0.36 lrvo=992) BASOPHILS ABSOLUTE COUNT (BEAKER) (test 0.02 K/ L 0.01-0.08 xcvi=368) IMMATURE GRANULOCYTES-RELATIVE PERCENT (BEAKER) 1 % 0-1 (test yczv=3154) POCT-GLUCOSE [id number] 17:49:00 Test Item Value Reference Range Comments POC-GLUCOSE METER (BEAKER) 272 mg/dL 70-110 TESTED AT [address] (test ljco=7229) [facility] [address] POCT-GLUCOSE [id number] 13:51:00 Test Item Value Reference Range Comments POC-GLUCOSE METER (BEAKER) 399 mg/dL 70-110 TESTED AT [address] (test evxu=5769) [facility] [address] POCT-GLUCOSE [id number] 12:53:00 Test Item Value Reference Range Comments POC-GLUCOSE METER (BEAKER) 182 mg/dL 70-110 TESTED AT [address] (test spaw=2818) [facility] [address] POCT-GLUCOSE [id number] 08:27:00 Test Item Value Reference Range Comments POC-GLUCOSE METER (BEAKER) 201 mg/dL 70-110 TESTED AT [address] (test ssli=1212) [facility] [address] BLOOD [id number] 23:01:00 Test Item Value Reference Range Comments CULTURE (BEAKER) (test zyfp=1393) No growth in 5 days POCT-GLUCOSE [id number] 21:41:00 Test Item Value Reference Range Comments POC-GLUCOSE METER (BEAKER) 327 mg/dL 70-110 Notified JORDON STAPLETON/TESTED AT [facility] (test tjaj=9641) [address] [place] [address] POCT-GLUCOSE [id number] 16:57:00 Test Item Value Reference Range Comments POC-GLUCOSE METER (BEAKER) 197 mg/dL 70-110 TESTED AT [address] (test lybx=9164) [facility] [address] POCT-GLUCOSE [id number] 13:01:00 Test Item Value Reference Range Comments POC-GLUCOSE METER (BEAKER) 311 mg/dL 70-110 Notified RN /TESTED AT [facility] (test iitc=6613) [address] [place] [address] POCT-GLUCOSE [id number] 12:11:00 Test Item Value Reference Range Comments POC-GLUCOSE METER (BEAKER) 54 mg/dL 70-110 Notified JORDON STAPLETON/TESTED AT [facility] (test zouc=6657) [address] [place] [address] POCT-GLUCOSE [id number] 08:52:00 Test Item Value Reference Range Comments POC-GLUCOSE METER (BEAKER) 165 mg/dL 70-110 TESTED AT [place] [address] [address] (test oaav=7657) [place] [address] CBC W/PLT COUNT & AUTO [id number] 06:47:00 Test Item Value Reference Range Comments WHITE BLOOD CELL COUNT (BEAKER) (test rmiq=373) 20.1 K/ L 3.5-10.5 RED BLOOD CELL COUNT (BEAKER) (test gdmj=230) 4.08 M/ L 3.93-5.22 HEMOGLOBIN (BEAKER) (test bufv=648) 10.9 GM/DL 11.2-15.7 HEMATOCRIT (BEAKER) (test snhc=984) 36.2 % 34.1-44.9 MEAN CORPUSCULAR VOLUME (BEAKER) (test sfbc=818) 88.7 fL 79.4-94.8 MEAN CORPUSCULAR HEMOGLOBIN (BEAKER) (test 26.7 pg 25.6-32.2 dfni=213) MEAN CORPUSCULAR HEMOGLOBIN CONC (BEAKER) (test 30.1 GM/DL 32.2-35.5 yeyn=371) RED CELL DISTRIBUTION WIDTH (BEAKER) (test 17.9 % 11.7-14.4 shfi=923) PLATELET COUNT (BEAKER) (test ulyp=418) 348 K/CU MM 150-450 MEAN PLATELET VOLUME (BEAKER) (test nwxc=325) 12.1 fL 9.4-12.3 NUCLEATED RED BLOOD CELLS (BEAKER) (test 0 /100 WBC 0-0 ljrb=802) (CELLAVISION MANUAL DIFF)2018-10-05 06:47:00 Test Item Value Reference Range Comments NEUTROPHILS - REL (CELLAVISION)(BEAKER) (test 77 % bvah=4770) LYMPHOCYTES - REL (CELLAVISION)(BEAKER) (test 15 % qvsd=3833) MONOCYTES - REL (CELLAVISION)(BEAKER) (test 5 % cqtv=9834) EOSINOPHILS - REL (CELLAVISION)(BEAKER) (test 1 % xsjr=7492) BANDS - REL (CELLAVISION)(BEAKER) (test 1 % 0-10 zlkr=4246) ATYPICAL LYMPHOCYTES - REL (CELLAVISION)(BEAKER) 1 % 0-0 (test cuvd=7491) NEUTROPHILS - ABS (CELLAVISION)(BEAKER) (test 15.48 K/ul 1.56-6.13 wufw=9627) LYMPHOCYTES - ABS (CELLAVISION)(BEAKER) (test 3.02 K/ul 1.18-3.74 mtjr=0151) MONOCYTES - ABS (CELLAVISION)(BEAKER) (test 1.01 K/uL 0.24-0.36 jtqx=9239) EOSINOPHILS - ABS (CELLAVISION)(BEAKER) (test 0.20 K/uL 0.04-0.36 zkwq=6336) BANDS - ABS (CELLAVISION)(BEAKER) (test 0.20 K/uL 0.00-0.80 oluz=5897) ATYPICAL LYMPHOCYTES - ABS (CELLAVISION)(BEAKER) 0.20 K/uL 0.00-0.00 (test onkp=8800) TOTAL COUNTED (BEAKER) (test qdap=6244) 100 WBC MORPHOLOGY (BEAKER) (test ufzm=137) Normal PLT MORPHOLOGY (BEAKER) (test hnyv=127) Normal POLYCHROMATOPHILLIC RBCS(BEAKER) (test kdej=675) 1+ few HYPOCHROMIA (BEAKER) (test xfdy=774) 1+ few ANISOCYTOSIS (BEAKER) (test awdw=002) 1+ few MACROCYTES (BEAKER) (test xciz=460) 1+ few ARTIFACT (CELLAVISION)(BEAKER) (test raqg=2374) Present PLATELET CONCENTRATION (CELLAVISION)(BEAKER) Adequate (test fnzi=3032) Received comment: User comments: Slide comments:COMPREHENSIVE METABOLIC [id number] 04:58:00 Test Item Value Reference Range Comments TOTAL PROTEIN (BEAKER) 7.4 gm/dL 6.0-8.3 (test ufha=892) ALBUMIN (BEAKER) (test 3.5 g/dL 3.5-5.0 ybpj=8658) ALKALINE PHOSPHATASE 119 U/L 40-150 (BEAKER) (test croa=027) BILIRUBIN TOTAL (BEAKER) 0.1 mg/dL 0.2-1.2 (test tjke=538) SODIUM (BEAKER) (test 138 meq/L 136-145 fvwi=229) POTASSIUM (BEAKER) (test 3.9 meq/L 3.5-5.1 zwot=575) CHLORIDE (BEAKER) (test 95 meq/L 98-107 lggi=892) CO2 (BEAKER) (test 31 meq/L 22-29 jsed=750) BLOOD UREA NITROGEN 26 mg/dL 7-21 (BEAKER) (test tgwi=718) CREATININE (BEAKER) (test 0.75 mg/dL 0.57-1.25 spzn=950) GLUCOSE RANDOM (BEAKER) 98 mg/dL 70-105 (test obbp=189) CALCIUM (BEAKER) (test 9.5 mg/dL 8.4-10.2 strq=856) AST (SGOT) (BEAKER) (test 25 U/L 5-34 emqq=523) ALT (SGPT) (BEAKER) (test 58 U/L 6-55 rioa=141) EGFR (BEAKER) (test 113 mL/min/1.73 sq ESTIMATED GFR IS NOT dzmt=4131) m ACCURATE CREATININE CLEARANCE IN PREDICTING GLOMERULAR FILTRATION RATE. ESTIMATED GFR IS NOT APPLICABLE FOR DIALYSIS PATIENTS. POCT-GLUCOSE [id number] 23:13:00 Test Item Value Reference Range Comments POC-GLUCOSE METER (BEAKER) 210 mg/dL 70-110 TESTED AT [address] (test hbne=2687) [place] [address] BLOOD [id number] 23:01:00 Test Item Value Reference Range Comments CULTURE (BEAKER) (test ifzv=1233) No growth in 5 days POCT-GLUCOSE [id number] 18:25:00 Test Item Value Reference Range Comments POC-GLUCOSE METER (BEAKER) 186 mg/dL 70-110 TESTED AT [address] (test xdmg=9151) [place] [address] FUNGUS CULTURE + [id number] 14:17:00 Test Item Value Reference Range Comments CULTURE (BEAKER) (test 1+ Clau dubliniensis wrmz=6340) FUNGUS SMEAR (BEAKER) (test No fungi seen ttiu=8010) POCT-GLUCOSE [id number] 12:24:00 Test Item Value Reference Range Comments POC-GLUCOSE METER (BEAKER) 183 mg/dL 70-110 TESTED AT [address] (test kfvl=0884) [place] [address] POCT-GLUCOSE [id number] 09:13:00 Test Item Value Reference Range Comments POC-GLUCOSE METER (Band Metrics) 81 mg/dL 70-110 TESTED AT [facility] [address] [facility] (test ndpo=3497) [place] [address] SPUTUM CULTURE + GRAM [id number] 09:05:00 Test Item Value Reference Range Comments CULTURE (yoonewAKER) (test PSEUDOMONAS 1+ Pseudomonas kxlq=5206) AERUGINOSA aeruginosa Amikacin (test code=1) Susceptible 0-16 [...] , code=25) Resistant <0 or >4 CULTURE (yoonewAKER) (test PSEUDOMONAS 1+ Pseudomonas noqo=1073) AERUGINOSA aeruginosa (MUCOID-PHENOTYPE) (Mucoid-phenotype) Amikacin (test code=1) [...] or >4 1+ Normal respiratory derick presentPOCT-GLUCOSE [id number] 06:29:00 Test Item Value Reference Range Comments POC-GLUCOSE METER (BEAKER) 291 mg/dL 70-110 TESTED AT [facility] [address] [facility] (test ligb=9181) [facility] [address] COMPREHENSIVE METABOLIC [id number] 06:00:00 Test Item Value Reference Range Comments TOTAL PROTEIN (BEAKER) 6.2 gm/dL 6.0-8.3 (test pdhd=816) ALBUMIN (BEAKER) (test 3.0 g/dL 3.5-5.0 piqs=3345) ALKALINE PHOSPHATASE 93 U/L 40-150 (BEAKER) (test rdbp=327) BILIRUBIN TOTAL (BEAKER) 0.1 mg/dL 0.2-1.2 (test lygv=861) SODIUM (BEAKER) (test 136 meq/L 136-145 stio=700) POTASSIUM (BEAKER) (test 4.2 meq/L 3.5-5.1 enbs=896) CHLORIDE (BEAKER) (test 96 meq/L 98-107 kkuk=060) CO2 (BEAKER) (test 31 meq/L 22-29 incr=008) BLOOD UREA NITROGEN 19 mg/dL 7-21 (BEAKER) (test tovf=057) CREATININE (BEAKER) (test 0.71 mg/dL 0.57-1.25 tjem=440) GLUCOSE RANDOM (BEAKER) 297 mg/dL 70-105 (test udvy=145) CALCIUM (BEAKER) (test 8.6 mg/dL 8.4-10.2 chrb=778) AST (SGOT) (BEAKER) (test 30 U/L 5-34 srak=899) ALT (SGPT) (BEAKER) (test 60 U/L 6-55 uxxu=800) EGFR (BEAKER) (test 121 mL/min/1.73 sq ESTIMATED GFR IS NOT vzkm=4718) m ACCURATE CREATININE CLEARANCE IN PREDICTING GLOMERULAR FILTRATION RATE. ESTIMATED GFR IS NOT APPLICABLE FOR DIALYSIS PATIENTS. CBC W/PLT COUNT & AUTO [id number] 05:35:00 Test Item Value Reference Range Comments WHITE BLOOD CELL COUNT (BEAKER) (test pvby=381) 17.7 K/ L 3.5-10.5 RED BLOOD CELL COUNT (BEAKER) (test tonv=182) 3.46 M/ L 3.93-5.22 HEMOGLOBIN (BEAKER) (test ewmm=576) 9.4 GM/DL 11.2-15.7 HEMATOCRIT (BEAKER) (test wcqg=832) 31.4 % 34.1-44.9 MEAN CORPUSCULAR VOLUME (BEAKER) (test tuzq=966) 90.8 fL 79.4-94.8 MEAN CORPUSCULAR HEMOGLOBIN (BEAKER) (test 27.2 pg 25.6-32.2 pxyn=739) MEAN CORPUSCULAR HEMOGLOBIN CONC (BEAKER) (test 29.9 GM/DL 32.2-35.5 laya=001) RED CELL DISTRIBUTION WIDTH (BEAKER) (test 17.4 % 11.7-14.4 vdag=213) PLATELET COUNT (BEAKER) (test thhq=273) 281 K/CU MM 150-450 MEAN PLATELET VOLUME (BEAKER) (test tgok=566) 12.8 fL 9.4-12.3 NUCLEATED RED BLOOD CELLS (BEAKER) (test 0 /100 WBC 0-0 zagp=242) NEUTROPHILS RELATIVE PERCENT (BEAKER) (test 85 % xzgi=795) LYMPHOCYTES RELATIVE PERCENT (BEAKER) (test 7 % tfvp=830) MONOCYTES RELATIVE PERCENT (BEAKER) (test 7 % bffg=826) EOSINOPHILS RELATIVE PERCENT (BEAKER) (test 0 % zrrw=226) BASOPHILS RELATIVE PERCENT (BEAKER) (test 0 % ssqs=807) NEUTROPHILS ABSOLUTE COUNT (BEAKER) (test 15.07 K/ L 1.56-6.13 zbeo=920) LYMPHOCYTES ABSOLUTE COUNT (BEAKER) (test 1.20 K/ L 1.18-3.74 mxvk=743) MONOCYTES ABSOLUTE COUNT (BEAKER) (test 1.17 K/ L 0.24-0.36 nmue=011) EOSINOPHILS ABSOLUTE COUNT (BEAKER) (test 0.05 K/ L 0.04-0.36 symf=888) BASOPHILS ABSOLUTE COUNT (BEAKER) (test 0.03 K/ L 0.01-0.08 rdfa=490) IMMATURE GRANULOCYTES-RELATIVE PERCENT (BEAKER) 1 % 0-1 (test gdtr=1729) POCT-GLUCOSE [id number] 05:34:00 Test Item Value Reference Range Comments POC-GLUCOSE METER (BEAKER) 207 mg/dL 70-110 TESTED AT [address] (test zzju=1272) [facility] [address] POCT-GLUCOSE [id number] 21:35:00 Test Item Value Reference Range Comments POC-GLUCOSE METER (BEAKER) 500 mg/dL 70-110 Notified JORDON STAPLETON/TESTED AT [facility] (test ioak=2720) [address] [place] [address] POCT-GLUCOSE [id number] 18:12:00 Test Item Value Reference Range Comments POC-GLUCOSE METER (BEAKER) 433 mg/dL 70-110 TESTED AT [address] (test klcd=9946) [facility] [address] POCT-GLUCOSE [id number] 14:05:00 Test Item Value Reference Range Comments POC-GLUCOSE METER (BEAKER) 298 mg/dL 70-110 TESTED AT [address] (test bpwd=6192) [facility] [address] POCT-GLUCOSE [id number] 08:34:00 Test Item Value Reference Range Comments POC-GLUCOSE METER (BEAKER) 171 mg/dL 70-110 TESTED AT [address] (test rncv=5880) [facility] [address] COMPREHENSIVE METABOLIC [id number] 05:54:00 Test Item Value Reference Range Comments TOTAL PROTEIN (BEAKER) 6.1 gm/dL 6.0-8.3 (test bvch=586) ALBUMIN (BEAKER) (test 2.9 g/dL 3.5-5.0 ddpv=2161) ALKALINE PHOSPHATASE 92 U/L 40-150 (BEAKER) (test ogdf=537) BILIRUBIN TOTAL (BEAKER) 0.1 mg/dL 0.2-1.2 (test cvuo=770) SODIUM (BEAKER) (test 135 meq/L 136-145 ocea=280) POTASSIUM (BEAKER) (test 4.5 meq/L 3.5-5.1 kwyw=274) CHLORIDE (BEAKER) (test 92 meq/L 98-107 yubw=495) CO2 (BEAKER) (test 36 meq/L 22-29 slap=635) BLOOD UREA NITROGEN 16 mg/dL 7-21 (BEAKER) (test ojxz=234) CREATININE (BEAKER) (test 0.77 mg/dL 0.57-1.25 ghwb=141) GLUCOSE RANDOM (BEAKER) 497 mg/dL 70-105 (test icqe=289) CALCIUM (BEAKER) (test 9.0 mg/dL 8.4-10.2 tzlb=364) AST (SGOT) (BEAKER) (test 32 U/L 5-34 kyqi=338) ALT (SGPT) (BEAKER) (test 68 U/L 6-55 hhnc=497) EGFR (BEAKER) (test 110 mL/min/1.73 sq ESTIMATED GFR IS NOT imda=1741) m ACCURATE CREATININE CLEARANCE IN PREDICTING GLOMERULAR FILTRATION RATE. ESTIMATED GFR IS NOT APPLICABLE FOR DIALYSIS PATIENTS. [id number] 05:41:00 Test Item Value Reference Range Comments POTASSIUM (BEAKER) (test ixsv=006) 4.5 meq/L 3.5-5.1 POCT-GLUCOSE [id number] 05:24:00 Test Item Value Reference Range Comments POC-GLUCOSE METER (BEAKER) 415 mg/dL 70-110 Notified JORDON STAPLETON/TESTED AT [facility] (test cqyb=0522) [address] [facility] [address] CBC W/PLT COUNT & AUTO [id number] 05:20:00 Test Item Value Reference Range Comments WHITE BLOOD CELL COUNT (BEAKER) (test mnhs=143) 12.9 K/ L 3.5-10.5 RED BLOOD CELL COUNT (BEAKER) (test hovs=569) 3.63 M/ L 3.93-5.22 HEMOGLOBIN (BEAKER) (test mxjq=297) 9.7 GM/DL 11.2-15.7 HEMATOCRIT (BEAKER) (test erht=807) 32.2 % 34.1-44.9 MEAN CORPUSCULAR VOLUME (BEAKER) (test mzdg=544) 88.7 fL 79.4-94.8 MEAN CORPUSCULAR HEMOGLOBIN (BEAKER) (test 26.7 pg 25.6-32.2 mrwr=186) MEAN CORPUSCULAR HEMOGLOBIN CONC (BEAKER) (test 30.1 GM/DL 32.2-35.5 xvss=816) RED CELL DISTRIBUTION WIDTH (BEAKER) (test 17.1 % 11.7-14.4 hbzl=981) PLATELET COUNT (BEAKER) (test qkps=289) 305 K/CU MM 150-450 MEAN PLATELET VOLUME (BEAKER) (test qjrn=257) 12.0 fL 9.4-12.3 NUCLEATED RED BLOOD CELLS (BEAKER) (test 0 /100 WBC 0-0 hffm=014) NEUTROPHILS RELATIVE PERCENT (BEAKER) (test 77 % giuj=866) LYMPHOCYTES RELATIVE PERCENT (BEAKER) (test 12 % peqb=718) MONOCYTES RELATIVE PERCENT (BEAKER) (test 10 % ohiq=009) EOSINOPHILS RELATIVE PERCENT (BEAKER) (test 1 % uoai=318) BASOPHILS RELATIVE PERCENT (BEAKER) (test 0 % ktbo=448) NEUTROPHILS ABSOLUTE COUNT (BEAKER) (test 9.87 K/ L 1.56-6.13 klhy=162) LYMPHOCYTES ABSOLUTE COUNT (BEAKER) (test 1.50 K/ L 1.18-3.74 andz=593) MONOCYTES ABSOLUTE COUNT (BEAKER) (test 1.24 K/ L 0.24-0.36 fjzr=986) EOSINOPHILS ABSOLUTE COUNT (BEAKER) (test 0.12 K/ L 0.04-0.36 jzxf=191) BASOPHILS ABSOLUTE COUNT (BEAKER) (test 0.02 K/ L 0.01-0.08 hoxv=414) IMMATURE GRANULOCYTES-RELATIVE PERCENT (BEAKER) 1 % 0-1 (test hapl=7760) LACTIC ACID, VENOUS, WHOLE [id number] 05:18:00 Test Item Value Reference Range Comments LACTATE BLOOD VENOUS (2) (BEAKER) (test 2.1 mmol/L 0.5-2.2 wwek=5535) [id number] 05:15:00 Test Item Value Reference Range Comments POTASSIUM (BEAKER) (test uebj=446) 4.5 meq/L 3.5-5.1 POCT-GLUCOSE [id number] 02:55:00 Test Item Value Reference Range Comments POC-GLUCOSE METER (BEAKER) 464 mg/dL 70-110 Notified JORDON STAPLETON/TESTED AT [facility] (test apik=5122) [address] [facility] [address] POCT-GLUCOSE [id number] 21:44:00 Test Item Value Reference Range Comments POC-GLUCOSE METER (BEAKER) 324 mg/dL 70-110 Notified JORDON STAPLETON/TESTED AT [facility] (test dach=8910) [address] [place] [address] POCT-GLUCOSE [id number] 18:33:00 Test Item Value Reference Range Comments POC-GLUCOSE METER (BEAKER) 272 mg/dL 70-110 TESTED AT [address] (test foqo=7411) [facility] [address] POCT-GLUCOSE [id number] 17:27:00 Test Item Value Reference Range Comments POC-GLUCOSE METER (BEAKER) 354 mg/dL 70-110 Notified JORDON STAPLETON/TESTED AT [facility] (test whkz=7069) [address] [place] [address] POCT-GLUCOSE [id number] 12:14:00 Test Item Value Reference Range Comments POC-GLUCOSE METER (BEAKER) 178 mg/dL 70-110 TESTED AT [address] (test dmbr=8566) [facility] [address] POCT-GLUCOSE [id number] 08:20:00 Test Item Value Reference Range Comments POC-GLUCOSE METER (BEAKER) 211 mg/dL 70-110 TESTED AT [address] (test wnfp=4604) [facility] [address] COMPREHENSIVE METABOLIC [id number] 06:42:00 Test Item Value Reference Range Comments TOTAL PROTEIN (BEAKER) 6.1 gm/dL 6.0-8.3 (test ftqp=956) ALBUMIN (BEAKER) (test 2.9 g/dL 3.5-5.0 npdi=2364) ALKALINE PHOSPHATASE 88 U/L 40-150 (BEAKER) (test omtk=620) BILIRUBIN TOTAL (BEAKER) 0.1 mg/dL 0.2-1.2 (test blol=178) SODIUM (BEAKER) (test 137 meq/L 136-145 ogva=345) POTASSIUM (BEAKER) (test 5.0 meq/L 3.5-5.1 qcvt=748) CHLORIDE (BEAKER) (test 95 meq/L 98-107 fffn=138) CO2 (BEAKER) (test 35 meq/L 22-29 kyks=018) BLOOD UREA NITROGEN 23 mg/dL 7-21 (BEAKER) (test mdkk=430) CREATININE (BEAKER) (test 0.67 mg/dL 0.57-1.25 qcoh=748) GLUCOSE RANDOM (BEAKER) 210 mg/dL 70-105 (test jber=073) CALCIUM (BEAKER) (test 8.8 mg/dL 8.4-10.2 fihf=150) AST (SGOT) (BEAKER) (test 51 U/L 5-34 thzq=961) ALT (SGPT) (BEAKER) (test 74 U/L 6-55 bybp=686) EGFR (BEAKER) (test 129 mL/min/1.73 sq ESTIMATED GFR IS NOT dijo=7133) m ACCURATE CREATININE CLEARANCE IN PREDICTING GLOMERULAR FILTRATION RATE. ESTIMATED GFR IS NOT APPLICABLE FOR DIALYSIS PATIENTS. POCT-GLUCOSE [id number] 06:39:00 Test Item Value Reference Range Comments POC-GLUCOSE METER (BEAKER) 224 mg/dL 70-110 TESTED AT [facility] [address] [facility] (test edhg=0258) [facility] [address] CBC W/PLT COUNT & AUTO [id number] 06:31:00 Test Item Value Reference Range Comments WHITE BLOOD CELL COUNT (BEAKER) (test ndwp=648) 12.7 K/ L 3.5-10.5 RED BLOOD CELL COUNT (BEAKER) (test cixr=804) 3.58 M/ L 3.93-5.22 HEMOGLOBIN (BEAKER) (test mltl=803) 9.7 GM/DL 11.2-15.7 HEMATOCRIT (BEAKER) (test utiz=562) 31.8 % 34.1-44.9 MEAN CORPUSCULAR VOLUME (BEAKER) (test gwqy=819) 88.8 fL 79.4-94.8 MEAN CORPUSCULAR HEMOGLOBIN (BEAKER) (test 27.1 pg 25.6-32.2 dphl=008) MEAN CORPUSCULAR HEMOGLOBIN CONC (BEAKER) (test 30.5 GM/DL 32.2-35.5 hisa=146) RED CELL DISTRIBUTION WIDTH (BEAKER) (test 16.4 % 11.7-14.4 aotz=827) PLATELET COUNT (BEAKER) (test drol=328) 258 K/CU MM 150-450 MEAN PLATELET VOLUME (BEAKER) (test vpup=482) 11.5 fL 9.4-12.3 NUCLEATED RED BLOOD CELLS (BEAKER) (test 0 /100 WBC 0-0 quuh=310) NEUTROPHILS RELATIVE PERCENT (BEAKER) (test 72 % jgtl=211) LYMPHOCYTES RELATIVE PERCENT (BEAKER) (test 15 % hvut=331) MONOCYTES RELATIVE PERCENT (BEAKER) (test 9 % eqln=490) EOSINOPHILS RELATIVE PERCENT (BEAKER) (test 3 % soou=543) BASOPHILS RELATIVE PERCENT (BEAKER) (test 0 % pdkl=640) NEUTROPHILS ABSOLUTE COUNT (BEAKER) (test 9.17 K/ L 1.56-6.13 wram=051) LYMPHOCYTES ABSOLUTE COUNT (BEAKER) (test 1.96 K/ L 1.18-3.74 gldz=569) MONOCYTES ABSOLUTE COUNT (BEAKER) (test 1.12 K/ L 0.24-0.36 lvzw=654) EOSINOPHILS ABSOLUTE COUNT (BEAKER) (test 0.32 K/ L 0.04-0.36 aapy=641) BASOPHILS ABSOLUTE COUNT (BEAKER) (test 0.02 K/ L 0.01-0.08 zrsw=391) IMMATURE GRANULOCYTES-RELATIVE PERCENT (BEAKER) 1 % 0-1 (test pafi=1336) POCT-GLUCOSE [id number] 02:22:00 Test Item Value Reference Range Comments POC-GLUCOSE METER (BEAKER) 354 mg/dL 70-110 TESTED AT [address] (test vjlg=4305) [facility] [address] POCT-GLUCOSE [id number] 22:38:00 Test Item Value Reference Range Comments POC-GLUCOSE METER (BEAKER) 224 mg/dL 70-110 TESTED AT [address] (test wmvq=6898) [facility] [address] POCT-GLUCOSE [id number] 21:24:00 Test Item Value Reference Range Comments POC-GLUCOSE METER (BEAKER) 349 mg/dL 70-110 TESTED AT [address] (test cjds=4410) [place] [id number] POCT-GLUCOSE [id number] 18:45:00 Test Item Value Reference Range Comments POC-GLUCOSE METER (BEAKER) 264 mg/dL 70-110 TESTED AT [address] (test znrb=6255) [place] [id number] POCT-GLUCOSE [id number] 15:48:00 Test Item Value Reference Range Comments POC-GLUCOSE METER (BEAKER) 191 mg/dL 70-110 TESTED AT [address] (test xehv=6882) [facility] [address] POCT-GLUCOSE [id number] 15:17:00 Test Item Value Reference Range Comments POC-GLUCOSE METER (BEAKER) 111 mg/dL 70-110 TESTED AT [address] (test wzin=0707) [facility] [address] POCT-GLUCOSE [id number] 11:13:00 Test Item Value Reference Range Comments POC-GLUCOSE METER (BEAKER) 297 mg/dL 70-110 TESTED AT [address] (test uitp=2047) [facility] [address] POCT-GLUCOSE [id number] 08:10:00 Test Item Value Reference Range Comments POC-GLUCOSE METER (BEAKER) 221 mg/dL 70-110 TESTED AT [address] (test kbtb=9374) [facility] [address] [id number] 05:11:00 Test Item Value Reference Range Comments PHOSPHORUS (BEAKER) (test kbuc=349) 4.0 mg/dL 2.3-4.7 [id number] 05:11:00 Test Item Value Reference Range Comments MAGNESIUM (BEAKER) (test jbss=840) 1.6 mg/dL 1.6-2.6 COMPREHENSIVE METABOLIC [id number] 05:11:00 Test Item Value Reference Range Comments TOTAL PROTEIN (BEAKER) 6.1 gm/dL 6.0-8.3 (test ukmc=398) ALBUMIN (BEAKER) (test 2.9 g/dL 3.5-5.0 kxzu=7978) ALKALINE PHOSPHATASE 87 U/L 40-150 (BEAKER) (test vlxx=932) BILIRUBIN TOTAL (BEAKER) 0.1 mg/dL 0.2-1.2 (test loph=744) SODIUM (BEAKER) (test 140 meq/L 136-145 knrg=134) POTASSIUM (BEAKER) (test 5.5 meq/L 3.5-5.1 opnq=689) CHLORIDE (BEAKER) (test 97 meq/L 98-107 hhwm=388) CO2 (BEAKER) (test 35 meq/L 22-29 urzo=453) BLOOD UREA NITROGEN 27 mg/dL 7-21 (BEAKER) (test izcl=781) CREATININE (BEAKER) (test 0.72 mg/dL 0.57-1.25 nqcz=719) GLUCOSE RANDOM (BEAKER) 219 mg/dL 70-105 (test bcsc=285) CALCIUM (BEAKER) (test 8.5 mg/dL 8.4-10.2 achn=475) AST (SGOT) (BEAKER) (test 80 U/L 5-34 ishp=340) ALT (SGPT) (BEAKER) (test 75 U/L 6-55 lblp=846) EGFR (BEAKER) (test 119 mL/min/1.73 sq ESTIMATED GFR IS NOT jfpd=5092) m ACCURATE CREATININE CLEARANCE IN PREDICTING GLOMERULAR FILTRATION RATE. ESTIMATED GFR IS NOT APPLICABLE FOR DIALYSIS PATIENTS. CBC W/PLT COUNT & AUTO [id number] 04:57:00 Test Item Value Reference Range Comments WHITE BLOOD CELL COUNT (BEAKER) (test ttiz=420) 13.8 K/ L 3.5-10.5 RED BLOOD CELL COUNT (BEAKER) (test yusb=146) 3.77 M/ L 3.93-5.22 HEMOGLOBIN (BEAKER) (test tfsy=490) 10.0 GM/DL 11.2-15.7 HEMATOCRIT (BEAKER) (test qvik=924) 33.7 % 34.1-44.9 MEAN CORPUSCULAR VOLUME (BEAKER) (test cplh=569) 89.4 fL 79.4-94.8 MEAN CORPUSCULAR HEMOGLOBIN (BEAKER) (test 26.5 pg 25.6-32.2 rsbh=549) MEAN CORPUSCULAR HEMOGLOBIN CONC (BEAKER) (test 29.7 GM/DL 32.2-35.5 ewlx=000) RED CELL DISTRIBUTION WIDTH (BEAKER) (test 16.3 % 11.7-14.4 paaz=575) PLATELET COUNT (BEAKER) (test pquq=626) 309 K/CU MM 150-450 MEAN PLATELET VOLUME (BEAKER) (test tgbp=941) 11.6 fL 9.4-12.3 NUCLEATED RED BLOOD CELLS (BEAKER) (test 0 /100 WBC 0-0 wxjw=795) NEUTROPHILS RELATIVE PERCENT (BEAKER) (test 72 % xkel=507) LYMPHOCYTES RELATIVE PERCENT (BEAKER) (test 15 % hycp=261) MONOCYTES RELATIVE PERCENT (BEAKER) (test 8 % oozq=654) EOSINOPHILS RELATIVE PERCENT (BEAKER) (test 4 % bqdq=761) BASOPHILS RELATIVE PERCENT (BEAKER) (test 0 % xqiv=182) NEUTROPHILS ABSOLUTE COUNT (BEAKER) (test 9.92 K/ L 1.56-6.13 bxkp=686) LYMPHOCYTES ABSOLUTE COUNT (BEAKER) (test 2.08 K/ L 1.18-3.74 mijh=664) MONOCYTES ABSOLUTE COUNT (BEAKER) (test 1.15 K/ L 0.24-0.36 zrhx=698) EOSINOPHILS ABSOLUTE COUNT (BEAKER) (test 0.49 K/ L 0.04-0.36 ocbc=735) BASOPHILS ABSOLUTE COUNT (BEAKER) (test 0.01 K/ L 0.01-0.08 niky=652) IMMATURE GRANULOCYTES-RELATIVE PERCENT (BEAKER) 1 % 0-1 (test ifci=7402) [id number] 02:54:00 Test Item Value Reference Range Comments PROCALCITONIN (BEAKER) (test uwmi=6532) 0.07 ng/mL <0.05 SEPSIS RISK (ng/mL)Low: 0.05-0.50Intermediate: 0.51-2.00High: & gt;=2.01POCT-GLUCOSE [id number] 01:59:00 Test Item Value Reference Range Comments POC-GLUCOSE METER (BEAKER) 265 mg/dL 70-110 TESTED AT [address] (test gsqd=6145) [facility] [address] POCT-GLUCOSE [id number] 21:36:00 Test Item Value Reference Range Comments POC-GLUCOSE METER (BEAKER) 256 mg/dL 70-110 TESTED AT [address] (test rbeq=2477) [place] [id number] CT, BRAIN, WITHOUT [id number] 20:55:00FINAL REPORT CT, BRAIN, WITHOUT CONTRAST CLINICAL [...] disease. IMPRESSION: No acute intracranial findings Signed: Rosa M [place] Verified Date/Time: 09/30/2018 20:55:31 Reading Location: [facility] C013V Neuro Reading Room COMPREHENSIVE METABOLIC [id number] 20:21:00 Test Item Value Reference Range Comments TOTAL PROTEIN (BEAKER) 6.6 gm/dL 6.0-8.3 (test tmpj=799) ALBUMIN (BEAKER) (test 3.0 g/dL 3.5-5.0 cpbd=0142) ALKALINE PHOSPHATASE 93 U/L 40-150 (BEAKER) (test brqa=136) BILIRUBIN TOTAL (BEAKER) 0.1 mg/dL 0.2-1.2 (test rkik=662) SODIUM (BEAKER) (test 134 meq/L 136-145 whtv=931) POTASSIUM (BEAKER) (test 5.9 meq/L 3.5-5.1 mgar=220) CHLORIDE (BEAKER) (test 94 meq/L 98-107 vmcg=898) CO2 (BEAKER) (test 29 meq/L 22-29 xnjt=731) BLOOD UREA NITROGEN 29 mg/dL 7-21 (BEAKER) (test bfpf=523) CREATININE (BEAKER) (test 0.97 mg/dL 0.57-1.25 rexr=507) GLUCOSE RANDOM (BEAKER) 556 mg/dL 70-105 (test idju=523) CALCIUM (BEAKER) (test 8.3 mg/dL 8.4-10.2 mcvh=816) AST (SGOT) (BEAKER) (test 71 U/L 5-34 jvoa=089) ALT (SGPT) (BEAKER) (test 71 U/L 6-55 pokn=392) EGFR (BEAKER) (test 84 mL/min/1.73 sq m ESTIMATED GFR IS NOT ziaz=5210) ACCURATE CREATININE CLEARANCE IN PREDICTING GLOMERULAR FILTRATION RATE. ESTIMATED GFR IS NOT APPLICABLE FOR DIALYSIS PATIENTS. HCG, QUANTITATIVE, [id number] 18:38:00 Test Item Value Reference Range Comments GONADOTROPIN, CHORIONIC (HCG) QUANT (BEAKER) (test < mIU/mL 0-10 uhpw=187) Non- Females: <10 mIU/mL Females: Gestation Age Reference Range(mIU/mL) 0.2-1 Week 5-50 1-2 Weeks 50-500 2-3 Weeks 100-5,000 3-4Weeks 500-10,000 4 -5 Weeks 1,000-50,000 5-6 Weeks 10,000-100,000 6-8 Weeks 15,000-200,000 2-3 Months 10,000-100,000U/S, RENAL, [id number] 17:21:00Reason for exam:->Hypertension, AKIShould this be [...] Verified Date/Time: 09/30/2018 17:21:03 Reading Location : [facility] [id number] Ultrasound Reading Room RAD, CHEST, 1 VIEW, NON [id number] 17:18: 00Reason for exam:->assess port placementShould this [...] in expected position. No pneumothorax. Signed: Flip Singer MDReport Verified Date/Time: 09/30/2018 17:18:52 Reading Location: [facility] Diagnostic Imaging Reading Room - [place] [address] POCT-GLUCOSE [id number] 17:15:00 Test Item Value Reference Range Comments POC-GLUCOSE METER (BEAKER) > mg/dL 70-110 OUTSIDE MEASURING RANGETESTED AT (test awgx=1772) [facility] [address] [facility] [address] U/S, ABDOMINAL, [id number] 15:35:00Abdomen limited area? Add comment if clarification [...] MDReport Verified Date/Time: 09/30/2018 15:35:23 Reading Location: [place] [id number] Ultrasound Reading Room Electronically signed by: SRAVANTHI FLORES M.D. on 04/2018 03:35 PMCBC W/PLT COUNT & AUTO [id number] 15:30:00 Test Item Value Reference Range Comments WHITE BLOOD CELL COUNT (BEAKER) (test pznz=406) 18.4 K/ L 3.5-10.5 RED BLOOD CELL COUNT (BEAKER) (test ktqg=994) 3.82 M/ L 3.93-5.22 HEMOGLOBIN (BEAKER) (test gnsv=444) 10.1 GM/DL 11.2-15.7 HEMATOCRIT (BEAKER) (test vhmb=884) 33.9 % 34.1-44.9 MEAN CORPUSCULAR VOLUME (BEAKER) (test wtnq=179) 88.7 fL 79.4-94.8 MEAN CORPUSCULAR HEMOGLOBIN (BEAKER) (test 26.4 pg 25.6-32.2 wtnj=017) MEAN CORPUSCULAR HEMOGLOBIN CONC (BEAKER) (test 29.8 GM/DL 32.2-35.5 zhxz=237) RED CELL DISTRIBUTION WIDTH (BEAKER) (test 16.7 % 11.7-14.4 ngkk=493) PLATELET COUNT (BEAKER) (test imxb=308) 337 K/CU MM 150-450 MEAN PLATELET VOLUME (BEAKER) (test bava=205) 12.0 fL 9.4-12.3 NUCLEATED RED BLOOD CELLS (BEAKER) (test 0 /100 WBC 0-0 icbv=392) NEUTROPHILS RELATIVE PERCENT (BEAKER) (test 91 % zfjr=101) LYMPHOCYTES RELATIVE PERCENT (BEAKER) (test 4 % xtjs=442) MONOCYTES RELATIVE PERCENT (BEAKER) (test 3 % xjtz=374) EOSINOPHILS RELATIVE PERCENT (BEAKER) (test 2 % oqch=343) BASOPHILS RELATIVE PERCENT (BEAKER) (test 0 % rlqx=011) NEUTROPHILS ABSOLUTE COUNT (BEAKER) (test 16.67 K/ L 1.56-6.13 idlz=810) LYMPHOCYTES ABSOLUTE COUNT (BEAKER) (test 0.73 K/ L 1.18-3.74 llzx=245) MONOCYTES ABSOLUTE COUNT (BEAKER) (test 0.47 K/ L 0.24-0.36 ftge=057) EOSINOPHILS ABSOLUTE COUNT (BEAKER) (test 0.30 K/ L 0.04-0.36 jjbd=720) BASOPHILS ABSOLUTE COUNT (BEAKER) (test 0.02 K/ L 0.01-0.08 moqm=610) IMMATURE GRANULOCYTES-RELATIVE PERCENT (BEAKER) 1 % 0-1 (test lupl=1639) COMPREHENSIVE METABOLIC [id number] 14:42:00 Test Item Value Reference Range Comments TOTAL PROTEIN (BEAKER) 6.8 gm/dL 6.0-8.3 Specimen slightly (test webj=170) hemolyzed ALBUMIN (BEAKER) (test 3.0 g/dL 3.5-5.0 Specimen slightly pcpf=5373) hemolyzed ALKALINE PHOSPHATASE 95 U/L 40-150 (BEAKER) (test xoan=239) BILIRUBIN TOTAL (BEAKER) 0.2 mg/dL 0.2-1.2 Specimen slightly (test cqjc=258) hemolyzed SODIUM (BEAKER) (test 132 meq/L 136-145 rmvk=736) POTASSIUM (BEAKER) (test 6.7 meq/L 3.5-5.1 Specimen slightly djjs=361) hemolyzed CHLORIDE (BEAKER) (test 94 meq/L 98-107 fjga=857) CO2 (BEAKER) (test 30 meq/L 22-29 ohsa=920) BLOOD UREA NITROGEN 28 mg/dL 7-21 (BEAKER) (test pfsp=009) CREATININE (BEAKER) (test 0.90 mg/dL 0.57-1.25 Specimen slightly uorj=759) hemolyzed GLUCOSE RANDOM (BEAKER) 519 mg/dL 70-105 (test rlxc=110) CALCIUM (BEAKER) (test 8.1 mg/dL 8.4-10.2 rggk=407) AST (SGOT) (BEAKER) (test 148 U/L 5-34 Specimen slightly drdp=216) hemolyzed ALT (SGPT) (BEAKER) (test 76 U/L 6-55 Specimen slightly pxxl=265) hemolyzed EGFR (BEAKER) (test 92 mL/min/1.73 sq m ESTIMATED GFR IS NOT vmzl=4378) ACCURATE CREATININE CLEARANCE IN PREDICTING GLOMERULAR FILTRATION RATE. ESTIMATED GFR IS NOT APPLICABLE FOR DIALYSIS PATIENTS. CBC W/PLT COUNT & AUTO [id number] 14:27:00 Test Item Value Reference Range Comments WHITE BLOOD CELL COUNT (BEAKER) (test scpv=702) 19.9 K/ L 3.5-10.5 RED BLOOD CELL COUNT (BEAKER) (test yzwc=395) 3.79 M/ L 3.93-5.22 HEMOGLOBIN (BEAKER) (test erkk=652) 10.2 GM/DL 11.2-15.7 HEMATOCRIT (BEAKER) (test vuwu=985) 34.1 % 34.1-44.9 MEAN CORPUSCULAR VOLUME (BEAKER) (test dlkl=309) 90.0 fL 79.4-94.8 MEAN CORPUSCULAR HEMOGLOBIN (BEAKER) (test 26.9 pg 25.6-32.2 apsv=353) MEAN CORPUSCULAR HEMOGLOBIN CONC (BEAKER) (test 29.9 GM/DL 32.2-35.5 lhgy=245) RED CELL DISTRIBUTION WIDTH (BEAKER) (test 16.2 % 11.7-14.4 dihv=833) PLATELET COUNT (BEAKER) (test oaau=116) 288 K/CU MM 150-450 MEAN PLATELET VOLUME (BEAKER) (test rukj=133) 11.9 fL 9.4-12.3 NUCLEATED RED BLOOD CELLS (BEAKER) (test 0 /100 WBC 0-0 mdvn=705) NEUTROPHILS RELATIVE PERCENT (BEAKER) (test 91 % ulbt=111) LYMPHOCYTES RELATIVE PERCENT (BEAKER) (test 4 % jbsb=527) MONOCYTES RELATIVE PERCENT (BEAKER) (test 3 % ekcu=893) EOSINOPHILS RELATIVE PERCENT (BEAKER) (test 2 % wlkv=503) BASOPHILS RELATIVE PERCENT (BEAKER) (test 0 % pohj=258) NEUTROPHILS ABSOLUTE COUNT (BEAKER) (test 18.05 K/ L 1.56-6.13 gykm=286) LYMPHOCYTES ABSOLUTE COUNT (BEAKER) (test 0.69 K/ L 1.18-3.74 obrr=104) MONOCYTES ABSOLUTE COUNT (BEAKER) (test 0.54 K/ L 0.24-0.36 oerx=143) EOSINOPHILS ABSOLUTE COUNT (BEAKER) (test 0.38 K/ L 0.04-0.36 cmro=193) BASOPHILS ABSOLUTE COUNT (BEAKER) (test 0.02 K/ L 0.01-0.08 bkli=979) IMMATURE GRANULOCYTES-RELATIVE PERCENT (BEAKER) 1 % 0-1 (test htol=9506) POCT-GLUCOSE [id number] 13:56:00 Test Item Value Reference Range Comments POC-GLUCOSE METER (BEAKER) 406 mg/dL 70-110 TESTED AT [address] (test usmk=3803) [facility] [address] POCT-GLUCOSE [id number] 12:35:00 Test Item Value Reference Range Comments POC-GLUCOSE METER (BEAKER) 122 mg/dL 70-110 TESTED AT [address] (test jzsm=8367) [place] [id number] POCT-GLUCOSE [id number] 12:04:00 Test Item Value Reference Range Comments POC-GLUCOSE METER (BEAKER) 67 mg/dL 70-110 Will Repeat Test/TESTED AT (test kqtn=5158) [address] [address] POCT-GLUCOSE [id number] 11:01:00 Test Item Value Reference Range Comments POC-GLUCOSE METER (BEAKER) 196 mg/dL 70-110 TESTED AT [address] (test envh=7228) [facility] [address] POCT-GLUCOSE [id number] 10:15:00 Test Item Value Reference Range Comments POC-GLUCOSE METER (BEAKER) 210 mg/dL 70-110 TESTED AT [address] (test cgxk=5905) [facility] [address] POCT-GLUCOSE [id number] 09:49:00 Test Item Value Reference Range Comments POC-GLUCOSE METER (BEAKER) 137 mg/dL 70-110 TESTED AT [address] (test dnby=9868) [facility] [address] POCT-GLUCOSE [id number] 08:42:00 Test Item Value Reference Range Comments POC-GLUCOSE METER (BEAKER) 22 mg/dL 70-110 Will Repeat Test/TESTED AT (test qine=9334) [address] [address] POCT-GLUCOSE [id number] 06:34:00 Test Item Value Reference Range Comments POC-GLUCOSE METER (BEAKER) 123 mg/dL 70-110 TESTED AT [address] (test qaqx=6766) [place] [address] POCT-GLUCOSE [id number] 05:17:00 Test Item Value Reference Range Comments POC-GLUCOSE METER (BEAKER) 257 mg/dL 70-110 TESTED AT [address] (test axwr=6947) [facility] [address] POCT-GLUCOSE [id number] 04:33:00 Test Item Value Reference Range Comments POC-GLUCOSE METER (BEAKER) 197 mg/dL 70-110 TESTED AT [address] (test roso=9192) [facility] [address] POCT-GLUCOSE [id number] 04:04:00 Test Item Value Reference Range Comments POC-GLUCOSE METER (BEAKER) 48 mg/dL 70-110 TESTED AT [address] (test lbje=2758) [facility] [address] POCT-GLUCOSE [id number] 03:44:00 Test Item Value Reference Range Comments POC-GLUCOSE METER (BEAKER) 62 mg/dL 70-110 TESTED AT [address] (test wgba=6012) [facility] [address] POCT-GLUCOSE [id number] 02:42:00 Test Item Value Reference Range Comments POC-GLUCOSE METER (BEAKER) 43 mg/dL 70-110 Notified JORDON STAPLETON/TESTED AT [facility] (test dgqi=4767) [address] [place] [address] POCT-GLUCOSE [id number] 02:10:00 Test Item Value Reference Range Comments POC-GLUCOSE METER (BEAKER) 73 mg/dL 70-110 TESTED AT [address] (test yonr=3727) [facility] [address] POCT-GLUCOSE [id number] 00:59:00 Test Item Value Reference Range Comments POC-GLUCOSE METER (BEAKER) 222 mg/dL 70-110 TESTED AT [address] (test gnwd=3469) [facility] [address] POCT-GLUCOSE [id number] 23:57:00 Test Item Value Reference Range Comments POC-GLUCOSE METER (BEAKER) 314 mg/dL 70-110 TESTED AT [address] (test gkaj=4685) [facility] [address] POCT-GLUCOSE [id number] 22:42:00 Test Item Value Reference Range Comments POC-GLUCOSE METER (BEAKER) 197 mg/dL 70-110 TESTED AT [address] (test gkhl=6842) [facility] [address] POCT-GLUCOSE [id number] 21:38:00 Test Item Value Reference Range Comments POC-GLUCOSE METER (BEAKER) 153 mg/dL 70-110 TESTED AT [address] (test uduj=1953) [facility] [address] POCT-GLUCOSE [id number] 20:44:00 Test Item Value Reference Range Comments POC-GLUCOSE METER (BEAKER) 164 mg/dL 70-110 TESTED AT [address] (test tmwz=0786) [facility] [address] POCT-GLUCOSE [id number] 19:15:00 Test Item Value Reference Range Comments POC-GLUCOSE METER (BEAKER) 186 mg/dL 70-110 TESTED AT [address] (test pkgz=1598) [facility] [address] POCT-GLUCOSE [id number] 18:06:00 Test Item Value Reference Range Comments POC-GLUCOSE METER (BEAKER) 215 mg/dL 70-110 TESTED AT [address] (test mlyv=4380) [facility] [address] POCT-GLUCOSE [id number] 17:31:00 Test Item Value Reference Range Comments POC-GLUCOSE METER (BEAKER) 116 mg/dL 70-110 TESTED AT [address] (test klpl=5071) [facility] [address] POCT-GLUCOSE [id number] 15:46:00 Test Item Value Reference Range Comments POC-GLUCOSE METER (BEAKER) 311 mg/dL 70-110 Notified JORDON STAPLETON/TESTED AT [facility] (test ixwz=2235) [address] [place] [address] POCT-GLUCOSE [id number] 14:37:00 Test Item Value Reference Range Comments POC-GLUCOSE METER (BEAKER) 306 mg/dL 70-110 Notified JORDON STAPLETON/TESTED AT [facility] (test mqte=5979) [address] [place] [address] POCT-GLUCOSE [id number] 14:07:00 Test Item Value Reference Range Comments POC-GLUCOSE METER (BEAKER) 326 mg/dL 70-110 Patient on insulin Drip/TESTED (test wohq=8515) AT [address] [address] POCT-GLUCOSE [id number] 12:52:00 Test Item Value Reference Range Comments POC-GLUCOSE METER (BEAKER) 360 mg/dL 70-110 Patient on insulin Drip/TESTED (test lsel=1783) AT [address] [address] POCT-GLUCOSE [id number] 11:24:00 Test Item Value Reference Range Comments POC-GLUCOSE METER (BEAKER) 366 mg/dL 70-110 Notified JORDON STAPLETON/TESTED AT [facility] (test teud=5525) [address] [place] [address] RAD, CHEST, 1 VIEW, NON [id number] 10:40:00Reason for exam:->pulm cystic fibrosisShould this be [...] Everardo Castellanos Verified Date/Time: 10:40:52 Reading Location: [facility] Radiology Reading Room POCT-GLUCOSE [id number] 10:18:00 Test Item Value Reference Range Comments POC-GLUCOSE METER (BEAKER) 299 mg/dL 70-110 TESTED AT [address] (test wkpn=1350) [facility] [address] POCT-GLUCOSE [id number] 09:42:00 Test Item Value Reference Range Comments POC-GLUCOSE METER (BEAKER) 146 mg/dL 70-110 TESTED AT [address] (test nnul=9716) [facility] [address] POCT-GLUCOSE [id number] 09:01:00 Test Item Value Reference Range Comments POC-GLUCOSE METER (BEAKER) 97 mg/dL 70-110 TESTED AT [address] (test xich=6752) [facility] [address] POCT-GLUCOSE [id number] 07:56:00 Test Item Value Reference Range Comments POC-GLUCOSE METER (BEAKER) 144 mg/dL 70-110 TESTED AT [address] (test lprv=9620) [facility] [address] POCT-GLUCOSE [id number] 06:34:00 Test Item Value Reference Range Comments POC-GLUCOSE METER (BEAKER) 231 mg/dL 70-110 TESTED AT [address] (test thzg=7784) [facility] [address] POCT-GLUCOSE [id number] 05:35:00 Test Item Value Reference Range Comments POC-GLUCOSE METER (BEAKER) 330 mg/dL 70-110 Notified JORDON STAPLETON/TESTED AT [facility] (test gwnx=7332) [address] [place] [address] POCT-GLUCOSE [id number] 04:31:00 Test Item Value Reference Range Comments POC-GLUCOSE METER (BEAKER) 291 mg/dL 70-110 TESTED AT [address] (test fnbc=4217) [facility] [address] POCT-GLUCOSE [id number] 04:00:00 Test Item Value Reference Range Comments POC-GLUCOSE METER (BEAKER) 246 mg/dL 70-110 TESTED AT [address] (test tvqm=4227) [facility] [address] TSH/FREE T4 IF [id number] 03:14:00 Test Item Value Reference Range Comments THYROID STIMULATING HORMONE (BEAKER) (test 1.25 uIU/mL 0.35-4.94 zzwe=807) COMPREHENSIVE METABOLIC [id number] 02:54:00 Test Item Value Reference Range Comments TOTAL PROTEIN (BEAKER) 6.5 gm/dL 6.0-8.3 (test bmqs=173) ALBUMIN (BEAKER) (test 2.9 g/dL 3.5-5.0 wkcw=8682) ALKALINE PHOSPHATASE 99 U/L 40-150 (BEAKER) (test qdzm=820) BILIRUBIN TOTAL (BEAKER) 0.1 mg/dL 0.2-1.2 (test ansp=592) SODIUM (BEAKER) (test 136 meq/L 136-145 cswd=841) POTASSIUM (BEAKER) (test 5.0 meq/L 3.5-5.1 kfan=758) CHLORIDE (BEAKER) (test 97 meq/L 98-107 wjhi=039) CO2 (BEAKER) (test 29 meq/L 22-29 nhfr=830) BLOOD UREA NITROGEN 32 mg/dL 7-21 (BEAKER) (test zjvd=931) CREATININE (BEAKER) (test 1.05 mg/dL 0.57-1.25 fcep=447) GLUCOSE RANDOM (BEAKER) 234 mg/dL 70-105 (test jvln=402) CALCIUM (BEAKER) (test 8.6 mg/dL 8.4-10.2 lhcp=496) AST (SGOT) (BEAKER) (test 19 U/L 5-34 qmyg=284) ALT (SGPT) (BEAKER) (test 30 U/L 6-55 ukae=431) EGFR (BEAKER) (test 77 mL/min/1.73 sq m ESTIMATED GFR IS NOT toem=1202) ACCURATE CREATININE CLEARANCE IN PREDICTING GLOMERULAR FILTRATION RATE. ESTIMATED GFR IS NOT APPLICABLE FOR DIALYSIS PATIENTS. CBC W/PLT COUNT & AUTO [id number] 02:37:00 Test Item Value Reference Range Comments WHITE BLOOD CELL COUNT (BEAKER) (test bihp=767) 16.5 K/ L 3.5-10.5 RED BLOOD CELL COUNT (BEAKER) (test kaqq=162) 3.82 M/ L 3.93-5.22 HEMOGLOBIN (BEAKER) (test afha=268) 10.2 GM/DL 11.2-15.7 HEMATOCRIT (BEAKER) (test xreu=807) 33.5 % 34.1-44.9 MEAN CORPUSCULAR VOLUME (BEAKER) (test xpld=651) 87.7 fL 79.4-94.8 MEAN CORPUSCULAR HEMOGLOBIN (BEAKER) (test 26.7 pg 25.6-32.2 ztjh=379) MEAN CORPUSCULAR HEMOGLOBIN CONC (BEAKER) (test 30.4 GM/DL 32.2-35.5 wqoi=881) RED CELL DISTRIBUTION WIDTH (BEAKER) (test 15.5 % 11.7-14.4 boti=700) PLATELET COUNT (BEAKER) (test svdz=272) 321 K/CU MM 150-450 MEAN PLATELET VOLUME (BEAKER) (test liuj=956) 11.6 fL 9.4-12.3 NUCLEATED RED BLOOD CELLS (BEAKER) (test 0 /100 WBC 0-0 neja=248) NEUTROPHILS RELATIVE PERCENT (BEAKER) (test 84 % argn=316) LYMPHOCYTES RELATIVE PERCENT (BEAKER) (test 6 % lqgl=070) MONOCYTES RELATIVE PERCENT (BEAKER) (test 8 % bdbq=427) EOSINOPHILS RELATIVE PERCENT (BEAKER) (test 0 % bdtc=555) BASOPHILS RELATIVE PERCENT (BEAKER) (test 0 % akgs=820) NEUTROPHILS ABSOLUTE COUNT (BEAKER) (test 13.76 K/ L 1.56-6.13 cphd=446) LYMPHOCYTES ABSOLUTE COUNT (BEAKER) (test 1.00 K/ L 1.18-3.74 jjek=706) MONOCYTES ABSOLUTE COUNT (BEAKER) (test 1.37 K/ L 0.24-0.36 kpyz=859) EOSINOPHILS ABSOLUTE COUNT (BEAKER) (test 0.05 K/ L 0.04-0.36 wsyu=782) BASOPHILS ABSOLUTE COUNT (BEAKER) (test 0.03 K/ L 0.01-0.08 weqd=715) IMMATURE GRANULOCYTES-RELATIVE PERCENT (BEAKER) 2 % 0-1 (test nfeu=8935) POCT-GLUCOSE [id number] 02:16:00 Test Item Value Reference Range Comments POC-GLUCOSE METER (BEAKER) 267 mg/dL 70-110 TESTED AT [address] (test pupf=7645) [place] [address] POCT-GLUCOSE [id number] 01:05:00 Test Item Value Reference Range Comments POC-GLUCOSE METER (BEAKER) 350 mg/dL 70-110 TESTED AT [address] (test gkmd=2734) [place] [address] POCT-GLUCOSE [id number] 00:18:00 Test Item Value Reference Range Comments POC-GLUCOSE METER (BEAKER) 463 mg/dL 70-110 TESTED AT [address] (test sujh=3645) [place] [address] BASIC METABOLIC [id number] 23:00:00 Test Item Value Reference Range Comments SODIUM (BEAKER) (test 132 meq/L 136-145 xjbr=914) POTASSIUM (BEAKER) (test 6.3 meq/L 3.5-5.1 gtbt=332) CHLORIDE (BEAKER) (test 93 meq/L 98-107 awol=482) CO2 (BEAKER) (test 31 meq/L 22-29 wzkm=604) BLOOD UREA NITROGEN 31 mg/dL 7-21 (BEAKER) (test bpqk=313) CREATININE (BEAKER) (test 1.51 mg/dL 0.57-1.25 qccy=203) GLUCOSE RANDOM (BEAKER) 611 mg/dL 70-105 (test qkyp=125) CALCIUM (BEAKER) (test 8.3 mg/dL 8.4-10.2 izcm=944) EGFR (BEAKER) (test 50 mL/min/1.73 sq m ESTIMATED GFR IS NOT vkcl=0527) ACCURATE CREATININE CLEARANCE IN PREDICTING GLOMERULAR FILTRATION RATE. ESTIMATED GFR IS NOT APPLICABLE FOR DIALYSIS PATIENTS. POCT-GLUCOSE [id number] 22:53:00 Test Item Value Reference Range Comments POC-GLUCOSE METER (BEAKER) > mg/dL 70-110 OUTSIDE MEASURING RANGENotified RN (test qvgm=8506) MD/TESTED AT [place] [address] POCT-GLUCOSE [id number] 20:20:00 Test Item Value Reference Range Comments POC-GLUCOSE METER (BEAKER) > mg/dL 70-110 OUTSIDE MEASURING RANGENotified RN (test rqvw=8706) MD/TESTED AT [address] [address] POCT-GLUCOSE [id number] 18:29:00 Test Item Value Reference Range Comments POC-GLUCOSE METER (BEAKER) 378 mg/dL 70-110 TESTED AT [address] (test fnoh=7706) [facility] [address] POCT-GLUCOSE [id number] 16:28:00 Test Item Value Reference Range Comments POC-GLUCOSE METER (BEAKER) 376 mg/dL 70-110 TESTED AT [address] (test dcwz=6902) [facility] [address] POCT-GLUCOSE [id number] 16:06:00 Test Item Value Reference Range Comments POC-GLUCOSE METER (BEAKER) 393 mg/dL 70-110 TESTED AT [address] (test bwfp=9790) [facility] [address] POCT-GLUCOSE [id number] 15:50:00 Test Item Value Reference Range Comments POC-GLUCOSE METER (BEAKER) 355 mg/dL 70-110 Notified RN or MD Patient (test fuyn=4242) refused repeat test/TESTED AT [address] [address] POCT-GLUCOSE [id number] 15:21:00 Test Item Value Reference Range Comments POC-GLUCOSE METER (BEAKER) 265 mg/dL 70-110 TESTED AT [address] (test dciu=4601) [facility] [address] POCT-GLUCOSE [id number] 14:41:00 Test Item Value Reference Range Comments POC-GLUCOSE METER (BEAKER) 225 mg/dL 70-110 TESTED AT [address] (test yzlm=6345) [facility] [address] ANG, VENOCAVAGRAM, [id number] 14:17:00Reason for exam:->Concern for SVC syndrome with [...] MDReport Verified Date/Time: 09/28/2018 14:17:02 Reading Location: [facility] P048 Angio Body Reading Room POCT-GLUCOSE [id number] 14:15:00 Test Item Value Reference Range Comments POC-GLUCOSE METER (BEAKER) 230 mg/dL 70-110 TESTED AT [address] (test pupe=2627) [place] [address] POCT-GLUCOSE [id number] 13:37:00 Test Item Value Reference Range Comments POC-GLUCOSE METER (BEAKER) 238 mg/dL 70-110 TESTED AT [address] (test gijt=8825) [place] [address] POCT-GLUCOSE [id number] 13:37:00 Test Item Value Reference Range Comments POC-GLUCOSE METER (BEAKER) 294 mg/dL 70-110 TESTED AT [address] (test nnpx=0809) [place] [id number] POCT-GLUCOSE [id number] 12:55:00 Test Item Value Reference Range Comments POC-GLUCOSE METER (BEAKER) 71 mg/dL 70-110 TESTED AT [address] (test wpfp=0782) [place] [id number] POCT-GLUCOSE [id number] 12:01:00 Test Item Value Reference Range Comments POC-GLUCOSE METER (BEAKER) 148 mg/dL 70-110 TESTED AT [address] (test raks=7821) [place] [address] CBC W/PLT COUNT & AUTO [id number] 11:50:00 Test Item Value Reference Range Comments WHITE BLOOD CELL COUNT (BEAKER) (test stpk=834) 15.3 K/ L 3.5-10.5 RED BLOOD CELL COUNT (BEAKER) (test agkk=580) 3.90 M/ L 3.93-5.22 HEMOGLOBIN (BEAKER) (test feue=688) 10.4 GM/DL 11.2-15.7 HEMATOCRIT (BEAKER) (test fuzv=222) 34.8 % 34.1-44.9 MEAN CORPUSCULAR VOLUME (BEAKER) (test ioud=122) 89.2 fL 79.4-94.8 MEAN CORPUSCULAR HEMOGLOBIN (BEAKER) (test 26.7 pg 25.6-32.2 gsox=048) MEAN CORPUSCULAR HEMOGLOBIN CONC (BEAKER) (test 29.9 GM/DL 32.2-35.5 vwov=559) RED CELL DISTRIBUTION WIDTH (BEAKER) (test 15.8 % 11.7-14.4 fpkm=246) PLATELET COUNT (BEAKER) (test jebc=704) 303 K/CU MM 150-450 MEAN PLATELET VOLUME (BEAKER) (test dtzv=844) 11.4 fL 9.4-12.3 NUCLEATED RED BLOOD CELLS (BEAKER) (test 0 /100 WBC 0-0 qtrk=671) (CELLAVISION MANUAL DIFF)2018-09-28 11:50:00 Test Item Value Reference Range Comments NEUTROPHILS - REL (CELLAVISION)(BEAKER) (test 79 % mvba=8143) LYMPHOCYTES - REL (CELLAVISION)(BEAKER) (test 11 % uhyh=0956) MONOCYTES - REL (CELLAVISION)(BEAKER) (test 10 % udjs=7540) NEUTROPHILS - ABS (CELLAVISION)(BEAKER) (test 12.09 K/ul 1.56-6.13 yeym=9897) LYMPHOCYTES - ABS (CELLAVISION)(BEAKER) (test 1.68 K/ul 1.18-3.74 vdoj=1201) MONOCYTES - ABS (CELLAVISION)(BEAKER) (test 1.53 K/uL 0.24-0.36 mlsr=4946) TOTAL COUNTED (BEAKER) (test vhzc=2353) 100 WBC MORPHOLOGY (BEAKER) (test prtx=044) Normal PLT MORPHOLOGY (BEAKER) (test sdjj=722) Normal POLYCHROMATOPHILLIC RBCS(BEAKER) (test kcyi=704) 2+ moderate ANISOCYTOSIS (BEAKER) (test mpuv=222) 2+ moderate TARGET CELLS (BEAKER) (test hfwl=533) 1+ few ARTIFACT (CELLAVISION)(BEAKER) (test cfki=4755) Present PLATELET CONCENTRATION (CELLAVISION)(BEAKER) Adequate (test pwti=0701) Received comment: User comments: Slide comments:POCT-GLUCOSE [id number] 11: 46:00 Test Item Value Reference Range Comments POC-GLUCOSE METER (BEAKER) 27 mg/dL 70-110 TESTED AT [address] (test xddi=4088) [place] [address] POCT-GLUCOSE [id number] 11:46:00 Test Item Value Reference Range Comments POC-GLUCOSE METER (BEAKER) 106 mg/dL 70-110 TESTED AT [address] (test npro=4537) [place] [address] POCT-GLUCOSE [id number] 11:46:00 Test Item Value Reference Range Comments POC-GLUCOSE METER (BEAKER) 20 mg/dL 70-110 TESTED AT [address] (test yqhk=1896) [place] [id number] POCT-GLUCOSE [id number] 11:46:00 Test Item Value Reference Range Comments POC-GLUCOSE METER (BEAKER) 63 mg/dL 70-110 TESTED AT [address] (test ylia=6954) [place] [id number] CF RESPIRATORY [id number] 11:03:00 Test Item Value Reference Range Comments CULTURE (BEAKER) (test PSEUDOMONAS 4+ Pseudomonas sdgk=9391) AERUGINOSA aeruginosa (MUCOID-PHENOTYPE) (Mucoid-phenotype) Amikacin (test code=1) [...] or >4 CULTURE (BEAKER) (test 4+ Pseudomonas cjxd=3017) aeruginosa 1+ Normal respiratory derick presentPOCT-GLUCOSE [id number] 09:33:00 Test Item Value Reference Range Comments POC-GLUCOSE METER (BEAKER) 29 mg/dL 70-110 TESTED AT [facility] [address] [place] [address] (test qbec=8958) [facility] [address] POCT-GLUCOSE [id number] 08:48:00 Test Item Value Reference Range Comments POC-GLUCOSE METER (BEAKER) 134 mg/dL 70-110 TESTED AT [address] (test xbnx=2930) [facility] [address] COMPREHENSIVE METABOLIC [id number] 06:31:00 Test Item Value Reference Range Comments TOTAL PROTEIN (BEAKER) 6.4 gm/dL 6.0-8.3 (test fsmd=198) ALBUMIN (BEAKER) (test 2.8 g/dL 3.5-5.0 ecqo=8522) ALKALINE PHOSPHATASE 99 U/L 40-150 (BEAKER) (test wjae=753) BILIRUBIN TOTAL (BEAKER) 0.1 mg/dL 0.2-1.2 (test osgs=270) SODIUM (BEAKER) (test 139 meq/L 136-145 mpxj=195) POTASSIUM (BEAKER) (test 4.3 meq/L 3.5-5.1 ppoe=263) CHLORIDE (BEAKER) (test 103 meq/L 98-107 edue=208) CO2 (BEAKER) (test 27 meq/L 22-29 wbgx=383) BLOOD UREA NITROGEN 25 mg/dL 7-21 (BEAKER) (test ihra=507) CREATININE (BEAKER) (test 0.71 mg/dL 0.57-1.25 nxae=144) GLUCOSE RANDOM (BEAKER) 67 mg/dL 70-105 (test kptf=427) CALCIUM (BEAKER) (test 8.6 mg/dL 8.4-10.2 jpoy=295) AST (SGOT) (BEAKER) (test 25 U/L 5-34 brrr=712) ALT (SGPT) (BEAKER) (test 29 U/L 6-55 vnpv=226) EGFR (BEAKER) (test 121 mL/min/1.73 sq ESTIMATED GFR IS NOT erps=7495) m ACCURATE CREATININE CLEARANCE IN PREDICTING GLOMERULAR FILTRATION RATE. ESTIMATED GFR IS NOT APPLICABLE FOR DIALYSIS PATIENTS. [id number] 06:28:00 Test Item Value Reference Range Comments PROTIME (BEAKER) (test bpef=401) 13.2 seconds 11.7-14.7 INR (BEAKER) (test hpvo=515) 1.0 <=5.9 PARTIAL THROMBOPLASTIN TIME (BEAKER) (test 23.8 seconds 22.5-36.0 kyir=595) RECOMMENDED COUMADIN/WARFARIN INR THERAPY RANGESSTANDARD DOSE: 2.0 - 3.0 Includes: PROPHYLAXIS forvenous thrombosis, systemic embolization; TREATMENT for venous thrombosis and/or pulmonary embolus.HIGH RISK: Target INR is 2.5-3.5 for patients with mechanical heart valves.POCT-GLUCOSE [id number] 06:01:00 Test Item Value Reference Range Comments POC-GLUCOSE METER (BEAKER) 102 mg/dL 70-110 TESTED AT [address] (test yfps=8736) [facility] [address] POCT-GLUCOSE [id number] 06:00:00 Test Item Value Reference Range Comments POC-GLUCOSE METER (BEAKER) 65 mg/dL 70-110 TESTED AT [address] (test yyya=5612) [facility] [address] POCT-GLUCOSE [id number] 02:18:00 Test Item Value Reference Range Comments POC-GLUCOSE METER (BEAKER) 185 mg/dL 70-110 TESTED AT [address] (test smgn=3160) [facility] [address] POCT-GLUCOSE [id number] 00:05:00 Test Item Value Reference Range Comments POC-GLUCOSE METER (BEAKER) 254 mg/dL 70-110 TESTED AT [address] (test mskz=7766) [facility] [address] POCT-GLUCOSE [id number] 20:51:00 Test Item Value Reference Range Comments POC-GLUCOSE METER (BEAKER) 157 mg/dL 70-110 TESTED AT [facility] [address] (test esuv=6749) [facility] [address] POCT-GLUCOSE [id number] 17:44:00 Test Item Value Reference Range Comments POC-GLUCOSE METER (BEAKER) 192 mg/dL 70-110 TESTED AT [facility] [address] [facility] (test mqht=9648) [facility] [address] POCT-GLUCOSE [id number] 12:38:00 Test Item Value Reference Range Comments POC-GLUCOSE METER (BEAKER) 338 mg/dL 70-110 Notified JORDON STAPLETON/TESTED AT [facility] (test ynep=0634) [address] [facility] [address] AFB CULTURE + [id number] 10:58:00 Test Item Value Reference Range Comments CULTURE (BEAKER) (test No acid-fast bacilli isolated myxu=6606) in 42 days AFB SMEAR (BEAKER) (test No acid fast bacilli seen ndub=324) COMPREHENSIVE METABOLIC [id number] 10:31:00 Test Item Value Reference Range Comments TOTAL PROTEIN (BEAKER) 6.5 gm/dL 6.0-8.3 (test marn=473) ALBUMIN (BEAKER) (test 2.8 g/dL 3.5-5.0 rvli=8407) ALKALINE PHOSPHATASE 109 U/L 40-150 (BEAKER) (test vucs=791) BILIRUBIN TOTAL (BEAKER) 0.1 mg/dL 0.2-1.2 (test mtae=592) SODIUM (BEAKER) (test 137 meq/L 136-145 quoo=287) POTASSIUM (BEAKER) (test 4.6 meq/L 3.5-5.1 sexp=032) CHLORIDE (BEAKER) (test 97 meq/L 98-107 dtbc=022) CO2 (BEAKER) (test 29 meq/L 22-29 cywc=903) BLOOD UREA NITROGEN 26 mg/dL 7-21 (BEAKER) (test ssds=343) CREATININE (BEAKER) (test 0.88 mg/dL 0.57-1.25 azbz=117) GLUCOSE RANDOM (BEAKER) 298 mg/dL 70-105 (test irfa=780) CALCIUM (BEAKER) (test 8.5 mg/dL 8.4-10.2 hpjg=606) AST (SGOT) (BEAKER) (test 26 U/L 5-34 cdts=027) ALT (SGPT) (BEAKER) (test 30 U/L 6-55 ydkz=836) EGFR (BEAKER) (test 94 mL/min/1.73 sq m ESTIMATED GFR IS NOT avba=3515) ACCURATE CREATININE CLEARANCE IN PREDICTING GLOMERULAR FILTRATION RATE. ESTIMATED GFR IS NOT APPLICABLE FOR DIALYSIS PATIENTS. CBC W/PLT COUNT & AUTO [id number] 10:30:00 Test Item Value Reference Range Comments WHITE BLOOD CELL COUNT (BEAKER) (test oznz=397) 17.2 K/ L 3.5-10.5 RED BLOOD CELL COUNT (BEAKER) (test gfyo=560) 3.93 M/ L 3.93-5.22 HEMOGLOBIN (BEAKER) (test lmoz=729) 10.4 GM/DL 11.2-15.7 HEMATOCRIT (BEAKER) (test nlpn=967) 34.7 % 34.1-44.9 MEAN CORPUSCULAR VOLUME (BEAKER) (test ihzd=638) 88.3 fL 79.4-94.8 MEAN CORPUSCULAR HEMOGLOBIN (BEAKER) (test 26.5 pg 25.6-32.2 qqxr=600) MEAN CORPUSCULAR HEMOGLOBIN CONC (BEAKER) (test 30.0 GM/DL 32.2-35.5 yrnk=044) RED CELL DISTRIBUTION WIDTH (BEAKER) (test 15.4 % 11.7-14.4 jtnn=716) PLATELET COUNT (BEAKER) (test myam=869) 343 K/CU MM 150-450 MEAN PLATELET VOLUME (BEAKER) (test peqi=634) 11.2 fL 9.4-12.3 NUCLEATED RED BLOOD CELLS (BEAKER) (test 0 /100 WBC 0-0 ncht=447) NEUTROPHILS RELATIVE PERCENT (BEAKER) (test 87 % huqv=795) LYMPHOCYTES RELATIVE PERCENT (BEAKER) (test 6 % owqk=265) MONOCYTES RELATIVE PERCENT (BEAKER) (test 5 % klwd=878) EOSINOPHILS RELATIVE PERCENT (BEAKER) (test 0 % diyp=809) BASOPHILS RELATIVE PERCENT (BEAKER) (test 0 % hewk=107) NEUTROPHILS ABSOLUTE COUNT (BEAKER) (test 14.93 K/ L 1.56-6.13 agyq=430) LYMPHOCYTES ABSOLUTE COUNT (BEAKER) (test 0.96 K/ L 1.18-3.74 gmab=282) MONOCYTES ABSOLUTE COUNT (BEAKER) (test 0.92 K/ L 0.24-0.36 ojkh=899) EOSINOPHILS ABSOLUTE COUNT (BEAKER) (test 0.00 K/ L 0.04-0.36 ozdp=039) BASOPHILS ABSOLUTE COUNT (BEAKER) (test 0.03 K/ L 0.01-0.08 mufz=544) IMMATURE GRANULOCYTES-RELATIVE PERCENT (BEAKER) 2 % 0-1 (test ukio=8395) POCT-GLUCOSE [id number] 08:59:00 Test Item Value Reference Range Comments POC-GLUCOSE METER (BEAKER) 108 mg/dL 70-110 TESTED AT [address] (test wzda=1258) [place] [address] POCT-GLUCOSE [id number] 07:11:00 Test Item Value Reference Range Comments POC-GLUCOSE METER (BEAKER) 170 mg/dL 70-110 TESTED AT [address] (test ypaf=6374) [place] [address] [id number] 06:34:00 Test Item Value Reference Range Comments BLOOD UREA NITROGEN (BEAKER) (test ybwz=670) 24 mg/dL 7-21 [id number] 06:34:00 Test Item Value Reference Range Comments CREATININE (BEAKER) (test 0.87 mg/dL 0.57-1.25 uclw=773) EGFR (BEAKER) (test 95 mL/min/1.73 sq m ESTIMATED GFR IS NOT oxma=6478) ACCURATE CREATININE CLEARANCE IN PREDICTING GLOMERULAR FILTRATION RATE. ESTIMATED GFR IS NOT APPLICABLE FOR DIALYSIS PATIENTS. POCT-GLUCOSE [id number] 06:05:00 Test Item Value Reference Range Comments POC-GLUCOSE METER (BEAKER) 171 mg/dL 70-110 TESTED AT [address] (test kfql=8320) [place] [address] SCREEN, [id number] 02:57:00 Test Item Value Reference Range Comments TEST URINE (BEAKER) (test kxqi=615) Negative POCT-GLUCOSE [id number] 00:14:00 Test Item Value Reference Range Comments POC-GLUCOSE METER (BEAKER) 262 mg/dL 70-110 TESTED AT [address] (test eztt=4237) [place] [address] POCT-GLUCOSE [id number] 21:03:00 Test Item Value Reference Range Comments POC-GLUCOSE METER (BEAKER) 287 mg/dL 70-110 TESTED AT [facility] [address] [facility] (test dukt=1528) [facility] [address] RESPIRATORY PANEL [id number] 19:49:00 Test Item Value Reference Range Comments HUMAN METAPNEUMOVIRUS (BEAKER) (test Not detected Not detected, Equivocal mkjg=1469) RHINOVIRUS (BEAKER) (test dfce=2821) Not detected Not detected, Equivocal INFLUENZA A (BEAKER) (test ydsm=9228) Not detected Not detected, Equivocal INFLUENZA A (NO SUBTYPE) (test Not detected, Equivocal xdxi=8215) INFLUENZA A SUBTYPE H1 (BEAKER) (test Not detected, Equivocal gvfs=7094) INFLUENZA A SUBTYPE H3 (BEAKER) (test Not detected, Equivocal ocmz=5100) INFLUENZA A SUBTYPE H1-2009 (BEAKER) Not detected, Equivocal (test awta=0307) INFLUENZA B (BEAKER) (test kudu=4571) Not detected Not detected, Equivocal RESPIRATORY SYNCYTIAL VIRUS (BEAKER) Not detected Not detected, Equivocal (test urgp=6277) PARAINFLUENZA VIRUS 1 (BEAKER) (test Not detected Not detected, Equivocal dbxy=6039) PARAINFLUENZA VIRUS 2 (BEAKER) (test Not detected Not detected, Equivocal foqr=3232) PARAINFLUENZA VIRUS 3 (BEAKER) (test Not detected Not detected, Equivocal rudb=9174) PARAINFLUENZA VIRUS 4 (BEAKER) (test Not detected Not detected, Equivocal xntp=0967) ADENOVIRUS (BEAKER) (test ykch=0743) Not detected Not detected, Equivocal CORONAVIRUS 229E (BEAKER) (test Not detected Not detected, Equivocal gkcg=9246) CORONAVIRUS HKU1 (BEAKER) (test Not detected Not detected, Equivocal fqie=0379) CORONAVIRUS NL63 (BEAKER) (test Not detected Not detected, Equivocal ckgy=4116) CORONAVIRUS OC43 (BEAKER) (test Not detected Not detected, Equivocal aszp=8987) BORDETELLA PERTUSSIS (BEAKER) (test Not detected Not detected, Equivocal tvdv=0955) CHLAMYDOPHILA PNEUMONIAE (BEAKER) (test Not detected Not detected, Equivocal lmrk=9026) MYCOPLASMA PNEUMONIAE (BEAKER) (test Not detected Not detected, Equivocal efjw=3556) Other viruses and bacteria not targeted by this PCR panel cannot be excluded; therefore clinical correlation and follow up of serology, culture results, and other molecular studies is required. The results are not intended to be used as the sole means for clinical diagnosis or patient management decisions. This sample was tested at the [facility] using the [employer] FilmArray Respiratory Panel. It is FDA cleared and has been verified and approved by the [facility] for clinical use on nasal swab specimens. It is not FDA-cleared for use on bronchial wash/lavage samples. However, for this sample type, validation was performed and test characteristics were determined and approved, by [facility] for clinical use under the Clinical Laboratory Improvement Amendments (CLIA) of 1988 requirements. Therefore, FDA clearance isnot required. This laboratory is CLIA-certified and [employer] ([employer])-accredited to perform high complexity testing.POCT-GLUCOSE [id number] 17:42:00 Test Item Value Reference Range Comments POC-GLUCOSE METER (BEAKER) 277 mg/dL 70-110 TESTED AT [address] (test adcv=8691) [place] [address] POCT-GLUCOSE [id number] 14:59:00 Test Item Value Reference Range Comments POC-GLUCOSE METER (BEAKER) 328 mg/dL 70-110 Will Repeat Test/TESTED AT (test vcfd=8777) [place] [address] POCT-GLUCOSE [id number] 12:42:00 Test Item Value Reference Range Comments POC-GLUCOSE METER (BEAKER) 152 mg/dL 70-110 TESTED AT [address] (test jpvk=5286) [place] [address] POCT-GLUCOSE [id number] 12:22:00 Test Item Value Reference Range Comments POC-GLUCOSE METER (BEAKER) 168 mg/dL 70-110 TESTED AT [address] (test zugs=2407) [place] [address] COMPREHENSIVE METABOLIC [id number] 10:53:00 Test Item Value Reference Range Comments TOTAL PROTEIN (BEAKER) 7.0 gm/dL 6.0-8.3 (test prvj=887) ALBUMIN (BEAKER) (test 2.8 g/dL 3.5-5.0 rhgy=7118) ALKALINE PHOSPHATASE 140 U/L 40-150 (BEAKER) (test zrfk=317) BILIRUBIN TOTAL (BEAKER) 0.1 mg/dL 0.2-1.2 (test xyqq=518) SODIUM (BEAKER) (test 135 meq/L 136-145 evgq=576) POTASSIUM (BEAKER) (test 4.0 meq/L 3.5-5.1 axei=521) CHLORIDE (BEAKER) (test 96 meq/L 98-107 payk=712) CO2 (BEAKER) (test 30 meq/L 22-29 dcne=576) BLOOD UREA NITROGEN 15 mg/dL 7-21 (BEAKER) (test sizp=785) CREATININE (BEAKER) (test 0.70 mg/dL 0.57-1.25 ugdv=707) GLUCOSE RANDOM (BEAKER) 156 mg/dL 70-105 (test exka=926) CALCIUM (BEAKER) (test 8.5 mg/dL 8.4-10.2 mmom=674) AST (SGOT) (BEAKER) (test 73 U/L 5-34 tysf=174) ALT (SGPT) (BEAKER) (test 44 U/L 6-55 jvgh=864) EGFR (BEAKER) (test 123 mL/min/1.73 sq ESTIMATED GFR IS NOT xvyb=6352) m ACCURATE CREATININE CLEARANCE IN PREDICTING GLOMERULAR FILTRATION RATE. ESTIMATED GFR IS NOT APPLICABLE FOR DIALYSIS PATIENTS. POCT-GLUCOSE [id number] 10:43:00 Test Item Value Reference Range Comments POC-GLUCOSE METER (BEAKER) 126 mg/dL 70-110 TESTED AT [address] (test tyrt=1557) [facility] [address] CBC W/PLT COUNT & AUTO [id number] 10:40:00 Test Item Value Reference Range Comments WHITE BLOOD CELL COUNT (BEAKER) (test phrm=307) 19.7 K/ L 3.5-10.5 RED BLOOD CELL COUNT (BEAKER) (test sfug=065) 4.46 M/ L 3.93-5.22 HEMOGLOBIN (BEAKER) (test txvt=451) 12.1 GM/DL 11.2-15.7 HEMATOCRIT (BEAKER) (test btrt=838) 38.8 % 34.1-44.9 MEAN CORPUSCULAR VOLUME (BEAKER) (test emai=386) 87.0 fL 79.4-94.8 MEAN CORPUSCULAR HEMOGLOBIN (BEAKER) (test 27.1 pg 25.6-32.2 znzu=065) MEAN CORPUSCULAR HEMOGLOBIN CONC (BEAKER) (test 31.2 GM/DL 32.2-35.5 cgzr=808) RED CELL DISTRIBUTION WIDTH (BEAKER) (test 15.1 % 11.7-14.4 razv=226) PLATELET COUNT (BEAKER) (test izyc=176) 354 K/CU MM 150-450 MEAN PLATELET VOLUME (BEAKER) (test howo=690) 11.4 fL 9.4-12.3 NUCLEATED RED BLOOD CELLS (BEAKER) (test 0 /100 WBC 0-0 lklo=155) NEUTROPHILS RELATIVE PERCENT (BEAKER) (test 87 % paof=603) LYMPHOCYTES RELATIVE PERCENT (BEAKER) (test 6 % zscb=111) MONOCYTES RELATIVE PERCENT (BEAKER) (test 4 % ladf=112) EOSINOPHILS RELATIVE PERCENT (BEAKER) (test 0 % hled=576) BASOPHILS RELATIVE PERCENT (BEAKER) (test 0 % ptog=919) NEUTROPHILS ABSOLUTE COUNT (BEAKER) (test 17.07 K/ L 1.56-6.13 kdwc=483) LYMPHOCYTES ABSOLUTE COUNT (BEAKER) (test 1.22 K/ L 1.18-3.74 prlb=098) MONOCYTES ABSOLUTE COUNT (BEAKER) (test 0.82 K/ L 0.24-0.36 exin=886) EOSINOPHILS ABSOLUTE COUNT (BEAKER) (test 0.00 K/ L 0.04-0.36 jwps=112) BASOPHILS ABSOLUTE COUNT (BEAKER) (test 0.05 K/ L 0.01-0.08 jnwy=566) IMMATURE GRANULOCYTES-RELATIVE PERCENT (BEAKER) 3 % 0-1 (test wjyd=1331) POCT-GLUCOSE [id number] 10:22:00 Test Item Value Reference Range Comments POC-GLUCOSE METER (BEAKER) 95 mg/dL 70-110 TESTED AT [facility] [address] [facility] (test zkzs=3061) [facility] [address] [id number] 09:47:00 Test Item Value Reference Range Comments CREATININE (BEAKER) (test 0.71 mg/dL 0.57-1.25 yusx=506) EGFR (BEAKER) (test 121 mL/min/1.73 sq m ESTIMATED GFR IS NOT dkfs=6430) ACCURATE CREATININE CLEARANCE IN PREDICTING GLOMERULAR FILTRATION RATE. ESTIMATED GFR IS NOT APPLICABLE FOR DIALYSIS PATIENTS. [id number] 09:41:00 Test Item Value Reference Range Comments BLOOD UREA NITROGEN (BEAKER) (test dsji=231) 15 mg/dL 7-21 LACTIC ACID, VENOUS, WHOLE [id number] 09:18:00 Test Item Value Reference Range Comments LACTATE BLOOD VENOUS (2) (BEAKER) (test 1.1 mmol/L 0.5-2.2 cvwy=5399) CBC W/PLT COUNT & AUTO [id number] 09:13:00 Test Item Value Reference Range Comments WHITE BLOOD CELL COUNT (BEAKER) (test dpgt=862) 20.0 K/ L 3.5-10.5 RED BLOOD CELL COUNT (BEAKER) (test mvuu=713) 4.30 M/ L 3.93-5.22 HEMOGLOBIN (BEAKER) (test xsbx=057) 11.6 GM/DL 11.2-15.7 HEMATOCRIT (BEAKER) (test ljvd=112) 37.1 % 34.1-44.9 MEAN CORPUSCULAR VOLUME (BEAKER) (test flac=563) 86.3 fL 79.4-94.8 MEAN CORPUSCULAR HEMOGLOBIN (BEAKER) (test 27.0 pg 25.6-32.2 zfhc=959) MEAN CORPUSCULAR HEMOGLOBIN CONC (BEAKER) (test 31.3 GM/DL 32.2-35.5 dggs=010) RED CELL DISTRIBUTION WIDTH (BEAKER) (test 15.0 % 11.7-14.4 hcpn=425) PLATELET COUNT (BEAKER) (test mbpw=237) 409 K/CU MM 150-450 MEAN PLATELET VOLUME (BEAKER) (test mmsw=768) 11.0 fL 9.4-12.3 NUCLEATED RED BLOOD CELLS (BEAKER) (test 0 /100 WBC 0-0 gjyc=182) NEUTROPHILS RELATIVE PERCENT (BEAKER) (test 83 % lqyq=486) LYMPHOCYTES RELATIVE PERCENT (BEAKER) (test 6 % vuwu=424) MONOCYTES RELATIVE PERCENT (BEAKER) (test 6 % eolh=645) EOSINOPHILS RELATIVE PERCENT (BEAKER) (test 0 % okyw=858) BASOPHILS RELATIVE PERCENT (BEAKER) (test 0 % xlzg=376) NEUTROPHILS ABSOLUTE COUNT (BEAKER) (test 16.63 K/ L 1.56-6.13 jibr=541) LYMPHOCYTES ABSOLUTE COUNT (BEAKER) (test 1.24 K/ L 1.18-3.74 qadh=103) MONOCYTES ABSOLUTE COUNT (BEAKER) (test 1.21 K/ L 0.24-0.36 vhbr=334) EOSINOPHILS ABSOLUTE COUNT (BEAKER) (test 0.00 K/ L 0.04-0.36 drym=477) BASOPHILS ABSOLUTE COUNT (BEAKER) (test 0.06 K/ L 0.01-0.08 upls=164) IMMATURE GRANULOCYTES-RELATIVE PERCENT (BEAKER) 4 % 0-1 (test sohg=2656) POCT-BLOOD GASES, [id number] 09:11:00 Test Item Value Reference Range Comments TEMP, CELSIUS-POC (BEAKER) 37.0 (test urnt=2251) FIO2-POC (BEAKER) (test TESTED AT [address] ctse=5582) [place] [address] PH, VENOUS-POC (BEAKER) 7.377 7.320-7.420 (test vtyb=0089) PCO2, VENOUS-POC (BEAKER) 61.0 mm Hg 41.0-51.0 (test trwl=2810) PO2, VENOUS-POC (BEAKER) 36.0 mm Hg 25.0-40.0 (test duup=0649) SO2, VENOUS-POC (BEAKER) 66.0 % 40.0-70.0 (test qkoq=5649) HCO3, VENOUS-POC (BEAKER) 35.8 meq/L 21.0-29.0 (test hled=5132) BASE EXCESS, VENOUS-POC 11.0 meq/L -2.0-3.0 (BEAKER) (test vfmx=2559) [id number] 09:11:00 Test Item Value Reference Range Comments POC-SODIUM (BEAKER) (test 138 meq/L 135-148 TESTED AT [address] htfu=8961) [place] [address] [id number] 09:11:00 Test Item Value Reference Range Comments POC-POTASSIUM (BEAKER) (test 2.9 meq/L 3.6-5.5 TESTED AT [address] hlgd=5471) [place] [id number] 09:11:00 Test Item Value Reference Range Comments POC-GLUCOSE (BEAKER) (test 143 mg/dL 70-110 TESTED AT [address] pswd=5264) [place] [id number] POCT-CALCIUM [id number] 09:11:00 Test Item Value Reference Range Comments POC-CALCIUM IONIZED (BEAKER) 1.10 mmol/L 1.12-1.27 TESTED AT [address] (test lhzn=5963) [place] [address] [id number] 09:11:00 Test Item Value Reference Range Comments POC-HEMATOCRIT (BEAKER) (test 36 % 36-45 TESTED AT [address] wukb=2542) [place] [address] [id number] 09:11:00 Test Item Value Reference Range Comments POC-HEMOGLOBIN (BEAKER) 12.2 g/dL 12.0-15.0 TESTED AT [address] (test eahl=0705) [place] [address]TESTED AT [place] [address] POCT-LACTIC ACID, [id number] 09:11:00 Test Item Value Reference Range Comments POC-LACTIC ACID, VENOUS 1.2 mmol/L 0.9-1.7 TESTED AT [address] (BEAKER) (test llai=4683) [place] [id number] POCT-GLUCOSE [id number] 08:55:00 Test Item Value Reference Range Comments POC-GLUCOSE METER (BEAKER) 283 mg/dL 70-110 TESTED AT [address] (test neia=3647) [place] [id number] POCT-GLUCOSE [id number] 08:34:00 Test Item Value Reference Range Comments POC-GLUCOSE METER (BEAKER) < mg/dL 70-110 OUTSIDE MEASURING RANGEWill (test znja=9466) Repeat Test/TESTED AT [place] [id number] POCT-GLUCOSE [id number] 21:30:00 Test Item Value Reference Range Comments POC-GLUCOSE METER (BEAKER) 184 mg/dL 70-110 TESTED AT [address] (test favv=5825) [place] [address] POCT-GLUCOSE [id number] 18:56:00 Test Item Value Reference Range Comments POC-GLUCOSE METER (BEAKER) 128 mg/dL 70-110 TESTED AT [address] (test vfuf=1598) [place] [address] POCT-GLUCOSE [id number] 15:23:00 Test Item Value Reference Range Comments POC-GLUCOSE METER (BEAKER) 41 mg/dL 70-110 Will Repeat Test/TESTED AT (test ejow=3944) [place] [address] POCT-GLUCOSE [id number] 13:56:00 Test Item Value Reference Range Comments POC-GLUCOSE METER (BEAKER) 105 mg/dL 70-110 TESTED AT [address] (test hbrc=1236) [place] [address] POCT-GLUCOSE [id number] 07:40:00 Test Item Value Reference Range Comments POC-GLUCOSE METER (BEAKER) 321 mg/dL 70-110 Will Repeat Test/TESTED AT (test yffp=7154) [place] [address] [id number] 06:19:00 Test Item Value Reference Range Comments BLOOD UREA NITROGEN (BEAKER) (test xymw=809) 13 mg/dL 7-21 [id number] 06:19:00 Test Item Value Reference Range Comments CREATININE (BEAKER) (test 0.77 mg/dL 0.57-1.25 fqcd=584) EGFR (BEAKER) (test 110 mL/min/1.73 sq m ESTIMATED GFR IS NOT yzwm=2970) ACCURATE CREATININE CLEARANCE IN PREDICTING GLOMERULAR FILTRATION RATE. ESTIMATED GFR IS NOT APPLICABLE FOR DIALYSIS PATIENTS. POCT-GLUCOSE [id number] 21:13:00 Test Item Value Reference Range Comments POC-GLUCOSE METER (BEAKER) 328 mg/dL 70-110 TESTED AT [address] (test ubzd=4080) [place] [address] POCT-GLUCOSE [id number] 16:33:00 Test Item Value Reference Range Comments POC-GLUCOSE METER (BEAKER) 309 mg/dL 70-110 TESTED AT [address] (test fgat=3235) [place] [address] [id number] 12:59:00 Test Item Value Reference Range Comments BLOOD UREA NITROGEN (BEAKER) (test lidc=071) 11 mg/dL 7-21 [id number] 12:59:00 Test Item Value Reference Range Comments CREATININE (BEAKER) (test 0.93 mg/dL 0.57-1.25 jlai=506) EGFR (BEAKER) (test 88 mL/min/1.73 sq m ESTIMATED GFR IS NOT xhie=5313) ACCURATE CREATININE CLEARANCE IN PREDICTING GLOMERULAR FILTRATION RATE. ESTIMATED GFR IS NOT APPLICABLE FOR DIALYSIS PATIENTS. POCT-GLUCOSE [id number] 12:45:00 Test Item Value Reference Range Comments POC-GLUCOSE METER (BEAKER) 206 mg/dL 70-110 TESTED AT [address] (test myfs=8919) [place] [address] BASIC METABOLIC [id number] 10:43:00 Test Item Value Reference Range Comments SODIUM (BEAKER) (test 136 meq/L 136-145 sofs=874) POTASSIUM (BEAKER) (test 4.0 meq/L 3.5-5.1 etqq=455) CHLORIDE (BEAKER) (test 100 meq/L 98-107 rezc=246) CO2 (BEAKER) (test 25 meq/L 22-29 uxfu=314) BLOOD UREA NITROGEN 10 mg/dL 7-21 (BEAKER) (test yofj=135) CREATININE (BEAKER) (test 0.88 mg/dL 0.57-1.25 nnlp=610) GLUCOSE RANDOM (BEAKER) 440 mg/dL 70-105 (test jyqb=932) CALCIUM (BEAKER) (test 9.4 mg/dL 8.4-10.2 ljvp=431) EGFR (BEAKER) (test 94 mL/min/1.73 sq m ESTIMATED GFR IS NOT ayru=9766) ACCURATE CREATININE CLEARANCE IN PREDICTING GLOMERULAR FILTRATION RATE. ESTIMATED GFR IS NOT APPLICABLE FOR DIALYSIS PATIENTS. KETONE, [id number] 10:27:00 Test Item Value Reference Range Comments KETONES, BLOOD (BEAKER) (test xgdu=4106) 0.1 mmol/L <0.4 POCT-GLUCOSE [id number] 09:46:00 Test Item Value Reference Range Comments POC-GLUCOSE METER (BEAKER) 468 mg/dL 70-110 TESTED AT [address] (test kdsb=5053) [facility] [address] POCT-GLUCOSE [id number] 09:06:00 Test Item Value Reference Range Comments POC-GLUCOSE METER (BEAKER) 447 mg/dL 70-110 Will Repeat Test/TESTED AT (test gzol=5863) [address] [address] POCT-GLUCOSE [id number] 04:35:00 Test Item Value Reference Range Comments POC-GLUCOSE METER (BEAKER) 430 mg/dL 70-110 Notified RN MD/TESTED AT [facility] (test ftib=1850) [address] [place] [address] POCT-GLUCOSE [id number] 00:48:00 Test Item Value Reference Range Comments POC-GLUCOSE METER (BEAKER) 481 mg/dL 70-110 Notified RN MD/TESTED AT [facility] (test tlqj=3711) [address] [place], [place] [id number] SPIN/CONCENTRATION [id number] 00:21:00 Test Item Value Reference Range Comments CONCENTRATION CHARGED (BEAKER) (test cjbi=1806) Done POCT-GLUCOSE [id number] 22:01:00 Test Item Value Reference Range Comments POC-GLUCOSE METER (BEAKER) > mg/dL 70-110 OUTSIDE MEASURING RANGENotified RN (test zkxa=5152) MD/TESTED AT [place] [id number] RESPIRATORY PANEL [id number] 20:48:00 Test Item Value Reference Range Comments HUMAN METAPNEUMOVIRUS (BEAKER) (test Not detected Not detected, Equivocal xajx=0935) RHINOVIRUS (BEAKER) (test krfk=5166) Not detected Not detected, Equivocal INFLUENZA A (BEAKER) (test kaat=0915) Not detected Not detected, Equivocal INFLUENZA A (NO SUBTYPE) (test Not detected, Equivocal wewg=4886) INFLUENZA A SUBTYPE H1 (BEAKER) (test Not detected, Equivocal covm=6649) INFLUENZA A SUBTYPE H3 (BEAKER) (test Not detected, Equivocal xbln=2790) INFLUENZA A SUBTYPE H1-2009 (BEAKER) Not detected, Equivocal (test quuc=4948) INFLUENZA B (BEAKER) (test asqa=3478) Not detected Not detected, Equivocal RESPIRATORY SYNCYTIAL VIRUS (BEAKER) Not detected Not detected, Equivocal (test haqx=7792) PARAINFLUENZA VIRUS 1 (BEAKER) (test Not detected Not detected, Equivocal zwsy=5499) PARAINFLUENZA VIRUS 2 (BEAKER) (test Not detected Not detected, Equivocal lqtl=5991) PARAINFLUENZA VIRUS 3 (BEAKER) (test Not detected Not detected, Equivocal tbfi=7731) PARAINFLUENZA VIRUS 4 (BEAKER) (test Not detected Not detected, Equivocal zwbm=8104) ADENOVIRUS (BEAKER) (test xijr=5626) Not detected Not detected, Equivocal CORONAVIRUS 229E (BEAKER) (test Not detected Not detected, Equivocal hiqn=2303) CORONAVIRUS HKU1 (BEAKER) (test Not detected Not detected, Equivocal jwxs=1054) CORONAVIRUS NL63 (BEAKER) (test Not detected Not detected, Equivocal ozzu=5426) CORONAVIRUS OC43 (BEAKER) (test Not detected Not detected, Equivocal osux=0578) BORDETELLA PERTUSSIS (BEAKER) (test Not detected Not detected, Equivocal vihw=4238) CHLAMYDOPHILA PNEUMONIAE (BEAKER) (test Not detected Not detected, Equivocal shav=3451) MYCOPLASMA PNEUMONIAE (BEAKER) (test Not detected Not detected, Equivocal uolf=9725) Other viruses and bacteria not targeted by this PCR panel cannot be excluded; therefore clinical correlation and follow up of serology, culture results, and other molecular studies is required. The results are not intended to be used as the sole means for clinical diagnosis or patient management decisions. This sample was tested at the [facility] using the [employer] Film[employer] Respiratory Panel. It is FDA cleared and has been verified and approved by the [facility] for clinical use on nasal swab specimens. It is not FDA-cleared for use on bronchial wash/lavage samples. However, for this sample type, validation was performed and test characteristics were determined and approved, by [facility] [employer] [facility] laboratory for clinical use under the Clinical Laboratory Improvement Amendments (CLIA) of 1988 requirements. Therefore, FDA clearance isnot required. This laboratory is CLIA-certified and [employer] (CAP)-accredited to perform high complexity testing.POCT-GLUCOSE [id number] 18:50:00 Test Item Value Reference Range Comments POC-GLUCOSE METER (BEAKER) > mg/dL 70-110 OUTSIDE MEASURING RANGETESTED AT (test rjdq=4445) [facility] [address] [place] [address] POCT-GLUCOSE [id number] 13:49:00 Test Item Value Reference Range Comments POC-GLUCOSE METER (BEAKER) > mg/dL 70-110 OUTSIDE MEASURING RANGETESTED AT (test rjsn=2833) [address] [address] HEMOGLOBIN [id number] 09:49:00 Test Item Value Reference Range Comments HEMOGLOBIN A1C (BEAKER) (test okgr=883) 12.9 % 4.3-6.1 POCT-GLUCOSE [id number] 08:18:00 Test Item Value Reference Range Comments POC-GLUCOSE METER (BEAKER) 301 mg/dL 70-110 TESTED AT [address] (test nrnu=9553) [place] [id number] URINALYSIS [id number] 06:31:00 Test Item Value Reference Range Comments RBC UA (BEAKER) (test moac=598) 2 /HPF WBC UA (BEAKER) (test hnkw=065) 4 /HPF BACTERIA (BEAKER) (test jmhd=520) Rare MUCUS (BEAKER) (test zqpy=3691) Rare SQUAMOUS EPITHELIAL (BEAKER) (test ldpw=110) 4 /HPF YEAST (BEAKER) (test zdam=3664) Few URINALYSIS WITH MICROSCOPIC IF [id number] 06:24:00 Test Item Value Reference Range Comments COLOR (BEAKER) (test tgga=051) Light Yellow CLARITY (BEAKER) (test leba=883) Clear SPECIFIC GRAVITY UA (BEAKER) (test qbhj=985) 1.014 1.001-1.035 PH UA (BEAKER) (test bfte=330) 6.5 5.0-8.0 PROTEIN UA (BEAKER) (test wiem=046) 30 mg/dL Negative GLUCOSE UA (BEAKER) (test deps=273) >1000 mg/dL Negative KETONES UA (BEAKER) (test lrum=253) Negative Negative BILIRUBIN UA (BEAKER) (test enif=393) Negative Negative BLOOD UA (BEAKER) (test weqm=945) Trace Negative NITRITE UA (BEAKER) (test rpnj=964) Negative Negative LEUKOCYTE ESTERASE UA (BEAKER) (test iguh=216) Negative Negative UROBILINOGEN UA (BEAKER) (test ppoz=919) 0.2 mg/dL 0.2-1.0 SOURCE(BEAKER) (test aflg=7948) COMPREHENSIVE METABOLIC [id number] 05:21:00 Test Item Value Reference Range Comments TOTAL PROTEIN (BEAKER) 7.0 gm/dL 6.0-8.3 Specimen slightly (test tane=821) hemolyzed ALBUMIN (BEAKER) (test 2.7 g/dL 3.5-5.0 Specimen slightly pdhg=0158) hemolyzed ALKALINE PHOSPHATASE 164 U/L 40-150 (BEAKER) (test qmld=771) BILIRUBIN TOTAL (BEAKER) 0.1 mg/dL 0.2-1.2 Specimen slightly (test jbsw=969) hemolyzed SODIUM (BEAKER) (test 132 meq/L 136-145 kxoz=160) POTASSIUM (BEAKER) (test 4.8 meq/L 3.5-5.1 Specimen slightly woac=656) hemolyzed CHLORIDE (BEAKER) (test 100 meq/L 98-107 oirq=457) CO2 (BEAKER) (test 23 meq/L 22-29 tpzm=209) BLOOD UREA NITROGEN 6 mg/dL 7-21 (BEAKER) (test vpzu=230) CREATININE (BEAKER) (test 0.75 mg/dL 0.57-1.25 Specimen slightly hdoc=118) hemolyzed GLUCOSE RANDOM (BEAKER) 468 mg/dL 70-105 (test qolo=928) CALCIUM (BEAKER) (test 8.1 mg/dL 8.4-10.2 tijz=638) AST (SGOT) (BEAKER) (test 20 U/L 5-34 Specimen slightly sgpg=132) hemolyzed ALT (SGPT) (BEAKER) (test 11 U/L 6-55 Specimen slightly skfw=178) hemolyzed EGFR (BEAKER) (test 113 mL/min/1.73 sq ESTIMATED GFR IS NOT vqej=6287) m ACCURATE CREATININE CLEARANCE IN PREDICTING GLOMERULAR FILTRATION RATE. ESTIMATED GFR IS NOT APPLICABLE FOR DIALYSIS PATIENTS. [id number] 05:05:00 Test Item Value Reference Range Comments MAGNESIUM (BEAKER) (test 1.4 mg/dL 1.6-2.6 Specimen slightly hemolyzed kdnw=876) [id number] 05:05:00 Test Item Value Reference Range Comments PHOSPHORUS (BEAKER) (test 3.9 mg/dL 2.3-4.7 Specimen slightly hemolyzed zjfz=742) [id number] 05:05:00 Test Item Value Reference Range Comments BLOOD UREA NITROGEN (BEAKER) (test pdeh=986) 6 mg/dL 7-21 [id number] 05:05:00 Test Item Value Reference Range Comments CREATININE (BEAKER) (test 0.75 mg/dL 0.57-1.25 Specimen slightly ohry=493) hemolyzed EGFR (BEAKER) (test 113 mL/min/1.73 sq m ESTIMATED GFR IS NOT hgln=4487) ACCURATE CREATININE CLEARANCE IN PREDICTING GLOMERULAR FILTRATION RATE. ESTIMATED GFR IS NOT APPLICABLE FOR DIALYSIS PATIENTS. GAMMA GLUTAMYL TRANSFERASE (GGT)2018-09-23 05:05:00 Test Item Value Reference Range Comments GAMMA GLUTAMYL TRANSFERASE 29 U/L 9-64 Specimen slightly hemolyzed (BEAKER) (test umii=559) POCT-GLUCOSE [id number] 04:43:00 Test Item Value Reference Range Comments POC-GLUCOSE METER (BEAKER) 493 mg/dL 70-110 Notified JORDON STAPLETON/TESTED AT [facility] (test lupp=8374) [address] [facility] [address] CBC W/PLT COUNT & AUTO [id number] 04:15:00 Test Item Value Reference Range Comments WHITE BLOOD CELL COUNT (BEAKER) (test cdjl=090) 9.2 K/ L 3.5-10.5 RED BLOOD CELL COUNT (BEAKER) (test ybby=396) 4.24 M/ L 3.93-5.22 HEMOGLOBIN (BEAKER) (test miyq=837) 11.0 GM/DL 11.2-15.7 HEMATOCRIT (BEAKER) (test ndcu=271) 37.0 % 34.1-44.9 MEAN CORPUSCULAR VOLUME (BEAKER) (test dyal=212) 87.3 fL 79.4-94.8 MEAN CORPUSCULAR HEMOGLOBIN (BEAKER) (test 25.9 pg 25.6-32.2 nsin=786) MEAN CORPUSCULAR HEMOGLOBIN CONC (BEAKER) (test 29.7 GM/DL 32.2-35.5 ybtj=221) RED CELL DISTRIBUTION WIDTH (BEAKER) (test 14.9 % 11.7-14.4 ldpo=695) PLATELET COUNT (BEAKER) (test oukq=371) 418 K/CU MM 150-450 MEAN PLATELET VOLUME (BEAKER) (test ksyx=714) 10.8 fL 9.4-12.3 NUCLEATED RED BLOOD CELLS (BEAKER) (test 0 /100 WBC 0-0 vxnm=994) NEUTROPHILS RELATIVE PERCENT (BEAKER) (test 88 % vlqt=343) LYMPHOCYTES RELATIVE PERCENT (BEAKER) (test 8 % ghev=258) MONOCYTES RELATIVE PERCENT (BEAKER) (test 2 % pgzx=134) EOSINOPHILS RELATIVE PERCENT (BEAKER) (test 1 % eqnq=977) BASOPHILS RELATIVE PERCENT (BEAKER) (test 0 % sbsf=961) NEUTROPHILS ABSOLUTE COUNT (BEAKER) (test 8.13 K/ L 1.56-6.13 zvos=245) LYMPHOCYTES ABSOLUTE COUNT (BEAKER) (test 0.73 K/ L 1.18-3.74 hcla=031) MONOCYTES ABSOLUTE COUNT (BEAKER) (test 0.22 K/ L 0.24-0.36 rikk=266) EOSINOPHILS ABSOLUTE COUNT (BEAKER) (test 0.11 K/ L 0.04-0.36 syjg=319) BASOPHILS ABSOLUTE COUNT (BEAKER) (test 0.03 K/ L 0.01-0.08 apym=146) IMMATURE GRANULOCYTES-RELATIVE PERCENT (BEAKER) 0 % 0-1 (test ffei=5388) POCT-LACTIC ACID, [id number] 21:07:00 Test Item Value Reference Range Comments POC-LACTIC ACID, VENOUS 1.5 mmol/L 0.9-1.7 TESTED AT [place] [id number] [facility] (BEAKER) (test rqad=1425) [facility] [address] RAD, CHEST, 2 [id number] 20:59:00Reason for exam:->SHORTNESS OF BREATHShould this be [...] fibrosis. No acute cardiopulmonary abnormality. Signed: Jerald Maciaseport Verified Date /Time: 09/22/2018 20:59:18 Reading Location: [facility] B1 [id number] Consult Reading Room TROPONIN [id number] 20:13:00 Test Item Value Reference Range Comments TROPONIN I (BEAKER) (test xszw=615) < ng/mL 0.00-0.03 [id number] 20:07:00 Test Item Value Reference Range Comments MAGNESIUM (BEAKER) (test izaz=673) 1.7 mg/dL 1.6-2.6 COMPREHENSIVE METABOLIC [id number] 20:07:00 Test Item Value Reference Range Comments TOTAL PROTEIN (BEAKER) 6.6 gm/dL 6.0-8.3 (test yktx=337) ALBUMIN (BEAKER) (test 2.7 g/dL 3.5-5.0 wrew=7116) ALKALINE PHOSPHATASE 151 U/L 40-150 (BEAKER) (test rbot=163) BILIRUBIN TOTAL (BEAKER) 0.1 mg/dL 0.2-1.2 (test stgt=750) SODIUM (BEAKER) (test 138 meq/L 136-145 wghg=810) POTASSIUM (BEAKER) (test 4.0 meq/L 3.5-5.1 rgat=167) CHLORIDE (BEAKER) (test 105 meq/L 98-107 btoz=280) CO2 (BEAKER) (test 27 meq/L 22-29 uykh=099) BLOOD UREA NITROGEN 6 mg/dL 7-21 (BEAKER) (test wbul=965) CREATININE (BEAKER) (test 0.67 mg/dL 0.57-1.25 xase=509) GLUCOSE RANDOM (BEAKER) 113 mg/dL 70-105 (test tjiu=828) CALCIUM (BEAKER) (test 8.5 mg/dL 8.4-10.2 zhar=112) AST (SGOT) (BEAKER) (test 23 U/L 5-34 txzk=756) ALT (SGPT) (BEAKER) (test 11 U/L 6-55 esix=732) EGFR (BEAKER) (test 129 mL/min/1.73 sq ESTIMATED GFR IS NOT ygim=6511) m ACCURATE CREATININE CLEARANCE IN PREDICTING GLOMERULAR FILTRATION RATE. ESTIMATED GFR IS NOT APPLICABLE FOR DIALYSIS PATIENTS. [id number] 20:07:00 Test Item Value Reference Range Comments LIPASE (BEAKER) (test nifq=052) < U/L 8-78 [id number] 20:03:00 Test Item Value Reference Range Comments PROTIME (BEAKER) (test yjky=265) 14.1 seconds 11.7-14.7 INR (BEAKER) (test iddl=680) 1.1 <=5.9 PARTIAL THROMBOPLASTIN TIME (BEAKER) (test 34.3 seconds 22.5-36.0 terc=444) RECOMMENDED COUMADIN/WARFARIN INR THERAPY RANGESSTANDARD DOSE: 2.0 - 3.0 Includes: PROPHYLAXIS forvenous thrombosis, systemic embolization; TREATMENT for venous thrombosis and/or pulmonary embolus.HIGH RISK: Target INR is 2.5-3.5 for patients with mechanical heart valves.CBC W/PLT COUNT & AUTO [id number] 19:57:00 Test Item Value Reference Range Comments WHITE BLOOD CELL COUNT (BEAKER) (test eczr=433) 11.7 K/ L 3.5-10.5 RED BLOOD CELL COUNT (BEAKER) (test tmjx=398) 4.08 M/ L 3.93-5.22 HEMOGLOBIN (BEAKER) (test lcsi=576) 10.7 GM/DL 11.2-15.7 HEMATOCRIT (BEAKER) (test ynmd=811) 35.5 % 34.1-44.9 MEAN CORPUSCULAR VOLUME (BEAKER) (test vrvx=828) 87.0 fL 79.4-94.8 MEAN CORPUSCULAR HEMOGLOBIN (BEAKER) (test 26.2 pg 25.6-32.2 idmi=380) MEAN CORPUSCULAR HEMOGLOBIN CONC (BEAKER) (test 30.1 GM/DL 32.2-35.5 uekq=740) RED CELL DISTRIBUTION WIDTH (BEAKER) (test 14.9 % 11.7-14.4 wwnx=587) PLATELET COUNT (BEAKER) (test zzto=536) 416 K/CU MM 150-450 MEAN PLATELET VOLUME (BEAKER) (test yfqp=318) 10.3 fL 9.4-12.3 NUCLEATED RED BLOOD CELLS (BEAKER) (test 0 /100 WBC 0-0 egaq=651) NEUTROPHILS RELATIVE PERCENT (BEAKER) (test 71 % jfrr=402) LYMPHOCYTES RELATIVE PERCENT (BEAKER) (test 17 % uxjq=710) MONOCYTES RELATIVE PERCENT (BEAKER) (test 9 % aaql=504) EOSINOPHILS RELATIVE PERCENT (BEAKER) (test 2 % vjjc=323) BASOPHILS RELATIVE PERCENT (BEAKER) (test 0 % lgjl=292) NEUTROPHILS ABSOLUTE COUNT (BEAKER) (test 8.30 K/ L 1.56-6.13 vrxg=918) LYMPHOCYTES ABSOLUTE COUNT (BEAKER) (test 2.01 K/ L 1.18-3.74 aioo=758) MONOCYTES ABSOLUTE COUNT (BEAKER) (test 1.00 K/ L 0.24-0.36 nbqa=927) EOSINOPHILS ABSOLUTE COUNT (BEAKER) (test 0.26 K/ L 0.04-0.36 ukji=834) BASOPHILS ABSOLUTE COUNT (BEAKER) (test 0.05 K/ L 0.01-0.08 owbi=371) IMMATURE GRANULOCYTES-RELATIVE PERCENT (BEAKER) 0 % 0-1 (test bqqe=4446) FUNGUS CULTURE + [id number] 11:38:00 Test Item Value Reference Range Comments CULTURE (BEAKER) (test 1 out of 3 media Penicillium zqhl=7855) speciesThis is a corrected organism result. Previous result was Mold on 09/05/2018 at 0812 [employer] FUNGUS SMEAR (BEAKER) (test 2+ yeast abbz=7456) CF RESPIRATORY [id number] 15:08:00 Test Item Value Reference Range Comments CULTURE (BEAKER) (test PSEUDOMONAS SPECIES 4+ Pseudomonas dewa=1090) species Amikacin (test code=1) Susceptible 0-16 , [...] >4 CULTURE (BEAKER) (test PSEUDOMONAS 4+ Pseudomonas lakl=9980) AERUGINOSA aeruginosa (MUCOID-PHENOTYPE) (Mucoid-phenotype)of a second type [...] or >4 3+ Normal respiratory derick presentPOCT-GLUCOSE [id number] 13:25:00 Test Item Value Reference Range Comments POC-GLUCOSE METER (BEAKER) 178 mg/dL 70-110 TESTED AT [facility] [address] [facility] (test cgiw=9951) [facility] [address] [id number] 11:51:00 Test Item Value Reference Range Comments POTASSIUM (BEAKER) (test ufuk=420) 4.6 meq/L 3.5-5.1 BASIC METABOLIC [id number] 10:31:00 Test Item Value Reference Range Comments SODIUM (BEAKER) (test 136 meq/L 136-145 ynqo=013) POTASSIUM (BEAKER) (test 5.6 meq/L 3.5-5.1 rxar=157) CHLORIDE (BEAKER) (test 95 meq/L 98-107 jdtw=861) CO2 (BEAKER) (test 36 meq/L 22-29 oumu=368) BLOOD UREA NITROGEN 20 mg/dL 7-21 (BEAKER) (test rjrf=110) CREATININE (BEAKER) (test 0.66 mg/dL 0.57-1.25 ynkp=926) GLUCOSE RANDOM (BEAKER) 182 mg/dL 70-105 (test oxsd=555) CALCIUM (BEAKER) (test 8.6 mg/dL 8.4-10.2 zqjv=615) EGFR (BEAKER) (test 131 mL/min/1.73 sq m ESTIMATED GFR IS NOT aiep=6627) ACCURATE CREATININE CLEARANCE IN PREDICTING GLOMERULAR FILTRATION RATE. ESTIMATED GFR IS NOT APPLICABLE FOR DIALYSIS PATIENTS. [id number] 10:26:00 Test Item Value Reference Range Comments MAGNESIUM (BEAKER) (test nsyw=485) 1.6 mg/dL 1.6-2.6 POCT-GLUCOSE [id number] 09:00:00 Test Item Value Reference Range Comments POC-GLUCOSE METER (BEAKER) 217 mg/dL 70-110 TESTED AT [address] (test pbnu=3327) [place] [id number] POCT-GLUCOSE [id number] 22:17:00 Test Item Value Reference Range Comments POC-GLUCOSE METER (BEAKER) 144 mg/dL 70-110 TESTED AT [address] (test wgdh=9189) [place] [id number] POCT-GLUCOSE [id number] 21:22:00 Test Item Value Reference Range Comments POC-GLUCOSE METER (BEAKER) 239 mg/dL 70-110 TESTED AT [address] (test koeg=6908) [place] [id number] POCT-GLUCOSE [id number] 14:57:00 Test Item Value Reference Range Comments POC-GLUCOSE METER (BEAKER) 175 mg/dL 70-110 TESTED AT [address] (test pezt=4518) [place] [id number] RAD, ABDOMEN/KUB, 1 VIEW [id number] 14:55:00Reason for exam:->abdominal painFINAL REPORT EXAM: AP [...] Woodall MDReport Verified Date/Time: 14:55:58 Reading Location: [facility] Reading Room POCT- GLUCOSE [id number] 11:49:00 Test Item Value Reference Range Comments POC-GLUCOSE METER (BEAKER) 137 mg/dL 70-110 TESTED AT [address] (test noug=7794) [place] [id number] POCT-GLUCOSE [id number] 08:36:00 Test Item Value Reference Range Comments POC-GLUCOSE METER (BEAKER) 106 mg/dL 70-110 TESTED AT [address] (test itqy=8236) [facility] [address] BASIC METABOLIC [id number] 06:35:00 Test Item Value Reference Range Comments SODIUM (BEAKER) (test 142 meq/L 136-145 bgkc=895) POTASSIUM (BEAKER) (test 3.9 meq/L 3.5-5.1 srxi=248) CHLORIDE (BEAKER) (test 95 meq/L 98-107 wbzk=761) CO2 (BEAKER) (test 39 meq/L 22-29 aorj=023) BLOOD UREA NITROGEN 22 mg/dL 7-21 (BEAKER) (test zdww=107) CREATININE (BEAKER) (test 0.61 mg/dL 0.57-1.25 wfrm=107) GLUCOSE RANDOM (BEAKER) 47 mg/dL 70-105 (test qzci=934) CALCIUM (BEAKER) (test 8.6 mg/dL 8.4-10.2 rqol=782) EGFR (BEAKER) (test 144 mL/min/1.73 sq m ESTIMATED GFR IS NOT irmy=9647) ACCURATE CREATININE CLEARANCE IN PREDICTING GLOMERULAR FILTRATION RATE. ESTIMATED GFR IS NOT APPLICABLE FOR DIALYSIS PATIENTS. [id number] 06:35:00 Test Item Value Reference Range Comments MAGNESIUM (BEAKER) (test tcvs=732) 1.4 mg/dL 1.6-2.6 BASIC METABOLIC [id number] 06:35:00 Test Item Value Reference Range Comments SODIUM (BEAKER) (test 141 meq/L 136-145 uwbl=463) POTASSIUM (BEAKER) (test 3.9 meq/L 3.5-5.1 bkrp=579) CHLORIDE (BEAKER) (test 95 meq/L 98-107 xhmh=132) CO2 (BEAKER) (test 39 meq/L 22-29 fzng=472) BLOOD UREA NITROGEN 22 mg/dL 7-21 (BEAKER) (test klwb=789) CREATININE (BEAKER) (test 0.61 mg/dL 0.57-1.25 dhel=234) GLUCOSE RANDOM (BEAKER) 46 mg/dL 70-105 (test acdo=572) CALCIUM (BEAKER) (test 8.6 mg/dL 8.4-10.2 kaeu=310) EGFR (BEAKER) (test 144 mL/min/1.73 sq m ESTIMATED GFR IS NOT mynf=4134) ACCURATE CREATININE CLEARANCE IN PREDICTING GLOMERULAR FILTRATION RATE. ESTIMATED GFR IS NOT APPLICABLE FOR DIALYSIS PATIENTS. POCT-GLUCOSE [id number] 23:02:00 Test Item Value Reference Range Comments POC-GLUCOSE METER (BEAKER) 142 mg/dL 70-110 TESTED AT [address] (test nivp=1085) [place] [id number] POCT-GLUCOSE [id number] 19:53:00 Test Item Value Reference Range Comments POC-GLUCOSE METER (BEAKER) 281 mg/dL 70-110 TESTED AT [address] (test rwnw=9303) [place] [id number] POCT-GLUCOSE [id number] 15:30:00 Test Item Value Reference Range Comments POC-GLUCOSE METER (BEAKER) 155 mg/dL 70-110 TESTED AT [address] (test kcwc=4964) [place] [id number] POCT-GLUCOSE [id number] 09:06:00 Test Item Value Reference Range Comments POC-GLUCOSE METER (BEAKER) 97 mg/dL 70-110 TESTED AT [address] (test vjkw=4679) [place] [address] POCT-GLUCOSE [id number] 21:52:00 Test Item Value Reference Range Comments POC-GLUCOSE METER (BEAKER) 339 mg/dL 70-110 Notified JORDON STAPLETON/TESTED AT [facility] (test mzgs=9551) [address] [place] [address] POCT-GLUCOSE [id number] 18:04:00 Test Item Value Reference Range Comments POC-GLUCOSE METER (BEAKER) > mg/dL 70-110 OUTSIDE MEASURING RANGETESTED AT (test kxjk=4262) [address] [address] POCT-GLUCOSE [id number] 17:40:00 Test Item Value Reference Range Comments POC-GLUCOSE METER (BEAKER) 49 mg/dL 70-110 TESTED AT [address] (test oree=9471) [facility] [address] POCT-GLUCOSE [id number] 08:23:00 Test Item Value Reference Range Comments POC-GLUCOSE METER (BEAKER) 70 mg/dL 70-110 TESTED AT [address] (test grtc=0295) [facility] [address] POCT-GLUCOSE [id number] 01:59:00 Test Item Value Reference Range Comments POC-GLUCOSE METER (BEAKER) 161 mg/dL 70-110 TESTED AT [address] (test aifo=7582) [facility] [address] POCT-GLUCOSE [id number] 21:38:00 Test Item Value Reference Range Comments POC-GLUCOSE METER (BEAKER) 113 mg/dL 70-110 TESTED AT [address] (test hdlg=7282) [facility] [address] POCT-GLUCOSE [id number] 17:47:00 Test Item Value Reference Range Comments POC-GLUCOSE METER (BEAKER) 139 mg/dL 70-110 TESTED AT [address] (test gktv=9498) [facility] [address] POCT-GLUCOSE [id number] 12:13:00 Test Item Value Reference Range Comments POC-GLUCOSE METER (BEAKER) 172 mg/dL 70-110 TESTED AT [address] (test giev=2763) [facility] [address] BASIC METABOLIC [id number] 09:30:00 Test Item Value Reference Range Comments SODIUM (BEAKER) (test 139 meq/L 136-145 wagn=154) POTASSIUM (BEAKER) (test 4.2 meq/L 3.5-5.1 vvmr=520) CHLORIDE (BEAKER) (test 94 meq/L 98-107 mtdw=308) CO2 (BEAKER) (test 37 meq/L 22-29 sawe=883) BLOOD UREA NITROGEN 19 mg/dL 7-21 (BEAKER) (test tgwe=180) CREATININE (BEAKER) (test 0.59 mg/dL 0.57-1.25 klrn=322) GLUCOSE RANDOM (BEAKER) 101 mg/dL 70-105 (test vcil=949) CALCIUM (BEAKER) (test 8.1 mg/dL 8.4-10.2 scwx=591) EGFR (BEAKER) (test 149 mL/min/1.73 sq m ESTIMATED GFR IS NOT yffi=9186) ACCURATE CREATININE CLEARANCE IN PREDICTING GLOMERULAR FILTRATION RATE. ESTIMATED GFR IS NOT APPLICABLE FOR DIALYSIS PATIENTS. POCT-GLUCOSE [id number] 08:40:00 Test Item Value Reference Range Comments POC-GLUCOSE METER (BEAKER) 100 mg/dL 70-110 TESTED AT [address] (test kgxg=2423) [place] [address] POCT-GLUCOSE [id number] 01:48:00 Test Item Value Reference Range Comments POC-GLUCOSE METER (BEAKER) 186 mg/dL 70-110 TESTED AT [address] (test atis=5368) [place] [address] BLOOD [id number] 00:00:00 Test Item Value Reference Range Comments CULTURE (BEAKER) (test ltoh=5223) No growth in 5 days POCT-GLUCOSE [id number] 21:54:00 Test Item Value Reference Range Comments POC-GLUCOSE METER (BEAKER) 232 mg/dL 70-110 TESTED AT [address] (test wxan=3312) [place] [address] POCT-GLUCOSE [id number] 18:20:00 Test Item Value Reference Range Comments POC-GLUCOSE METER (BEAKER) 223 mg/dL 70-110 TESTED AT [address] (test ioxm=4650) [place] [address] POCT-GLUCOSE [id number] 10:25:00 Test Item Value Reference Range Comments POC-GLUCOSE METER (BEAKER) 230 mg/dL 70-110 TESTED AT [address] (test qxnu=9354) [facility] [address] BASIC METABOLIC [id number] 08:57:00 Test Item Value Reference Range Comments SODIUM (BEAKER) (test 142 meq/L 136-145 zazh=046) POTASSIUM (BEAKER) (test 4.0 meq/L 3.5-5.1 svgw=131) CHLORIDE (BEAKER) (test 99 meq/L 98-107 hrij=739) CO2 (BEAKER) (test 39 meq/L 22-29 uvif=582) BLOOD UREA NITROGEN 18 mg/dL 7-21 (BEAKER) (test txii=825) CREATININE (BEAKER) (test 0.60 mg/dL 0.57-1.25 sbxk=046) GLUCOSE RANDOM (BEAKER) 56 mg/dL 70-105 (test ufwv=230) CALCIUM (BEAKER) (test 8.2 mg/dL 8.4-10.2 zjlo=883) EGFR (BEAKER) (test 146 mL/min/1.73 sq m ESTIMATED GFR IS NOT wvjs=9946) ACCURATE CREATININE CLEARANCE IN PREDICTING GLOMERULAR FILTRATION RATE. ESTIMATED GFR IS NOT APPLICABLE FOR DIALYSIS PATIENTS. POCT-GLUCOSE [id number] 08:43:00 Test Item Value Reference Range Comments POC-GLUCOSE METER (BEAKER) 68 mg/dL 70-110 TESTED AT [address] (test qrqm=9218) [facility] [address] POCT-GLUCOSE [id number] 01:17:00 Test Item Value Reference Range Comments POC-GLUCOSE METER (BEAKER) 160 mg/dL 70-110 TESTED AT [address] (test jxvt=5265) [place] [id number] POCT-GLUCOSE [id number] 19:47:00 Test Item Value Reference Range Comments POC-GLUCOSE METER (BEAKER) 193 mg/dL 70-110 TESTED AT [address] (test mxjw=1453) [place] [address] POCT-GLUCOSE [id number] 15:44:00 Test Item Value Reference Range Comments POC-GLUCOSE METER (BEAKER) 80 mg/dL 70-110 TESTED AT [address] (test gtge=2537) [place] [address] POCT-GLUCOSE [id number] 14:11:00 Test Item Value Reference Range Comments POC-GLUCOSE METER (BEAKER) 78 mg/dL 70-110 TESTED AT [address] (test qxpj=0554) [facility] [address] POCT-GLUCOSE [id number] 12:59:00 Test Item Value Reference Range Comments POC-GLUCOSE METER (BEAKER) 57 mg/dL 70-110 Notified JORDON STAPLETON/TESTED AT [facility] (test fwxl=0115) [address] [place] [id number] POCT-GLUCOSE [id number] 12:21:00 Test Item Value Reference Range Comments POC-GLUCOSE METER (BEAKER) 67 mg/dL 70-110 Notified JORDON STAPLETON/TESTED AT [facility] (test kmxd=1058) [address] [place] [address] POCT-GLUCOSE [id number] 09:53:00 Test Item Value Reference Range Comments POC-GLUCOSE METER (BEAKER) 170 mg/dL 70-110 TESTED AT [address] (test rwdq=6289) [facility] [address] POCT-GLUCOSE [id number] 08:38:00 Test Item Value Reference Range Comments POC-GLUCOSE METER (BEAKER) 52 mg/dL 70-110 Notified JORDON STAPLETON/TESTED AT [facility] (test sbrc=8575) [address] [place] [address] BASIC METABOLIC [id number] 07:10:00 Test Item Value Reference Range Comments SODIUM (BEAKER) (test 140 meq/L 136-145 ybub=736) POTASSIUM (BEAKER) (test 3.3 meq/L 3.5-5.1 lcaq=046) CHLORIDE (BEAKER) (test 97 meq/L 98-107 adur=400) CO2 (BEAKER) (test 34 meq/L 22-29 lmsm=167) BLOOD UREA NITROGEN 13 mg/dL 7-21 (BEAKER) (test ojms=020) CREATININE (BEAKER) (test 0.62 mg/dL 0.57-1.25 yzly=094) GLUCOSE RANDOM (BEAKER) 51 mg/dL 70-105 (test xijq=185) CALCIUM (BEAKER) (test 8.5 mg/dL 8.4-10.2 whhj=305) EGFR (BEAKER) (test 141 mL/min/1.73 sq m ESTIMATED GFR IS NOT rkuc=9851) ACCURATE CREATININE CLEARANCE IN PREDICTING GLOMERULAR FILTRATION RATE. ESTIMATED GFR IS NOT APPLICABLE FOR DIALYSIS PATIENTS. PROTEIN, RANDOM [id number] 22:37:00 Test Item Value Reference Range Comments PROTEIN, URINE (BEAKER) (test tfes=3896) 235 mg/dL 0-14 CREATININE, RANDOM [id number] 22:35:00 Test Item Value Reference Range Comments CREATININE URINE (BEAKER) (test obot=966) 84.6 mg/dL Reference Range: No NormalsPOCT-GLUCOSE [id number] 21:41:00 Test Item Value Reference Range Comments POC-GLUCOSE METER (BEAKER) 292 mg/dL 70-110 TESTED AT [address] (test xuvc=5970) [place] [address] POCT-GLUCOSE [id number] 17:51:00 Test Item Value Reference Range Comments POC-GLUCOSE METER (BEAKER) 241 mg/dL 70-110 TESTED AT [address] (test yymx=6333) [place] [address] POCT-GLUCOSE [id number] 12:32:00 Test Item Value Reference Range Comments POC-GLUCOSE METER (BEAKER) 123 mg/dL 70-110 TESTED AT [address] (test dbsw=9001) [place] [address] POCT-GLUCOSE [id number] 08:24:00 Test Item Value Reference Range Comments POC-GLUCOSE METER (BEAKER) 408 mg/dL 70-110 Notified JORDON STAPLETON/TESTED AT [facility] (test odfb=2518) [address] [place] [address] [id number] 07:32:00 Test Item Value Reference Range Comments BLOOD UREA NITROGEN (BEAKER) (test rnqd=152) 15 mg/dL 7-21 [id number] 07:32:00 Test Item Value Reference Range Comments CREATININE (BEAKER) (test 0.73 mg/dL 0.57-1.25 juht=017) EGFR (BEAKER) (test 117 mL/min/1.73 sq m ESTIMATED GFR IS NOT bxla=1714) ACCURATE CREATININE CLEARANCE IN PREDICTING GLOMERULAR FILTRATION RATE. ESTIMATED GFR IS NOT APPLICABLE FOR DIALYSIS PATIENTS. POCT-GLUCOSE [id number] 21:43:00 Test Item Value Reference Range Comments POC-GLUCOSE METER (BEAKER) 192 mg/dL 70-110 TESTED AT [address] (test bttg=0883) [place] [address] POCT-GLUCOSE [id number] 17:46:00 Test Item Value Reference Range Comments POC-GLUCOSE METER (BEAKER) 147 mg/dL 70-110 TESTED AT [address] (test cxlg=8016) [place] [address] POCT-GLUCOSE [id number] 12:38:00 Test Item Value Reference Range Comments POC-GLUCOSE METER (BEAKER) 203 mg/dL 70-110 TESTED AT [address] (test cune=2880) [place] [address] HEMOGLOBIN [id number] 11:18:00 Test Item Value Reference Range Comments HEMOGLOBIN A1C (BEAKER) (test bnlj=685) 16.1 % 4.3-6.1 POCT-GLUCOSE [id number] 09:15:00 Test Item Value Reference Range Comments POC-GLUCOSE METER (BEAKER) 330 mg/dL 70-110 Notified JORDON STAPLETON/TESTED AT [facility] (test ymfe=8696) [address] [place] [address] [id number] 07:34:00 Test Item Value Reference Range Comments CREATININE (BEAKER) (test 0.83 mg/dL 0.57-1.25 Specimen slightly fswo=749) hemolyzed EGFR (BEAKER) (test 101 mL/min/1.73 sq m ESTIMATED GFR IS NOT swkx=4133) ACCURATE CREATININE CLEARANCE IN PREDICTING GLOMERULAR FILTRATION RATE. ESTIMATED GFR IS NOT APPLICABLE FOR DIALYSIS PATIENTS. [id number] 07:34:00 Test Item Value Reference Range Comments BLOOD UREA NITROGEN (BEAKER) (test hipa=997) 15 mg/dL 7-21 POCT-GLUCOSE [id number] 01:59:00 Test Item Value Reference Range Comments POC-GLUCOSE METER (BEAKER) 78 mg/dL 70-110 TESTED AT [address] (test fein=8092) [place] [address] BASIC METABOLIC [id number] 23:00:00 Test Item Value Reference Range Comments SODIUM (BEAKER) (test 135 meq/L 136-145 nobj=366) POTASSIUM (BEAKER) (test 4.1 meq/L 3.5-5.1 toda=450) CHLORIDE (BEAKER) (test 98 meq/L 98-107 idto=582) CO2 (BEAKER) (test 26 meq/L 22-29 eisp=716) BLOOD UREA NITROGEN 16 mg/dL 7-21 (BEAKER) (test aowc=485) CREATININE (BEAKER) (test 1.27 mg/dL 0.57-1.25 mten=196) GLUCOSE RANDOM (BEAKER) 503 mg/dL 70-105 (test wsgn=749) CALCIUM (BEAKER) (test 8.1 mg/dL 8.4-10.2 eqvj=151) EGFR (BEAKER) (test 62 mL/min/1.73 sq m ESTIMATED GFR IS NOT lpue=9994) ACCURATE CREATININE CLEARANCE IN PREDICTING GLOMERULAR FILTRATION RATE. ESTIMATED GFR IS NOT APPLICABLE FOR DIALYSIS PATIENTS. POCT-GLUCOSE [id number] 21:22:00 Test Item Value Reference Range Comments POC-GLUCOSE METER (BEAKER) > mg/dL 70-110 OUTSIDE MEASURING RANGENotified RN (test kdek=8752) MD/TESTED AT [facility] [address] [facility] [address] RESPIRATORY PANEL [id number] 18:44:00 Test Item Value Reference Range Comments HUMAN METAPNEUMOVIRUS (BEAKER) (test Not detected Not detected, Equivocal muxr=2366) RHINOVIRUS (BEAKER) (test kcvm=7658) Not detected Not detected, Equivocal INFLUENZA A (BEAKER) (test aydc=7248) Not detected Not detected, Equivocal INFLUENZA A (NO SUBTYPE) (test Not detected, Equivocal dwff=9078) INFLUENZA A SUBTYPE H1 (BEAKER) (test Not detected, Equivocal bdnr=2631) INFLUENZA A SUBTYPE H3 (BEAKER) (test Not detected, Equivocal lgps=2528) INFLUENZA A SUBTYPE H1-2009 (BEAKER) Not detected, Equivocal (test qjxg=5295) INFLUENZA B (BEAKER) (test eohx=4396) Not detected Not detected, Equivocal RESPIRATORY SYNCYTIAL VIRUS (BEAKER) Not detected Not detected, Equivocal (test vowp=0060) PARAINFLUENZA VIRUS 1 (BEAKER) (test Not detected Not detected, Equivocal dzsn=9279) PARAINFLUENZA VIRUS 2 (BEAKER) (test Not detected Not detected, Equivocal tgge=0661) PARAINFLUENZA VIRUS 3 (BEAKER) (test Not detected Not detected, Equivocal xjcv=7801) PARAINFLUENZA VIRUS 4 (BEAKER) (test Not detected Not detected, Equivocal ecsc=8012) ADENOVIRUS (BEAKER) (test tems=4631) Not detected Not detected, Equivocal CORONAVIRUS 229E (BEAKER) (test Not detected Not detected, Equivocal fdnl=4695) CORONAVIRUS HKU1 (BEAKER) (test Not detected Not detected, Equivocal egtb=2723) CORONAVIRUS NL63 (BEAKER) (test Not detected Not detected, Equivocal ukxq=4724) CORONAVIRUS OC43 (BEAKER) (test Not detected Not detected, Equivocal lbos=5962) BORDETELLA PERTUSSIS (BEAKER) (test Not detected Not detected, Equivocal xezl=5320) CHLAMYDOPHILA PNEUMONIAE (BEAKER) (test Not detected Not detected, Equivocal dfhd=7389) MYCOPLASMA PNEUMONIAE (BEAKER) (test Not detected Not detected, Equivocal igon=8835) Other viruses and bacteria not targeted by this PCR panel cannot be excluded; therefore clinical correlation and follow up of serology, culture results, and other molecular studies is required. The results are not intended to be used as the sole means for clinical diagnosis or patient management decisions. This sample was tested at the [facility] Molecular Diagnostics Laboratory using the [employer] Respiratory Panel. It is FDA cleared and has been verified and approved by the [facility] for clinical use on nasal swab specimens. It is not FDA-cleared for use on bronchial wash/lavage samples. However, for this sample type, validation was performed and test characteristics were determined and approved, by [facility] [employer] [facility] laboratory for clinical use under the Clinical Laboratory Improvement Amendments (CLIA) of 1988 requirements. Therefore, FDA clearance isnot required. This laboratory is CLIA-certified and [employer] ([employer])-accredited to perform high complexity testing.POCT-GLUCOSE [id number] 18:36:00 Test Item Value Reference Range Comments POC-GLUCOSE METER (BEAKER) > mg/dL 70-110 OUTSIDE MEASURING RANGETESTED AT (test zzel=3285) [address] [address] SPIN/CONCENTRATION [id number] 12:46:00 Test Item Value Reference Range Comments CONCENTRATION CHARGED (BEAKER) (test qpcr=0818) Done POCT-GLUCOSE [id number] 12:21:00 Test Item Value Reference Range Comments POC-GLUCOSE METER (BEAKER) 286 mg/dL 70-110 TESTED AT [address] (test yteh=3636) [facility] [address] POCT-GLUCOSE [id number] 08:25:00 Test Item Value Reference Range Comments POC-GLUCOSE METER (BEAKER) 295 mg/dL 70-110 TESTED AT [address] (test witl=5789) [facility] [address] [id number] 07:37:00 Test Item Value Reference Range Comments BLOOD UREA NITROGEN (BEAKER) (test eczf=786) 5 mg/dL 7-21 [id number] 07:37:00 Test Item Value Reference Range Comments CREATININE (BEAKER) (test 0.64 mg/dL 0.57-1.25 Specimen slightly bolb=587) hemolyzed EGFR (BEAKER) (test 136 mL/min/1.73 sq m ESTIMATED GFR IS NOT hojv=4449) ACCURATE CREATININE CLEARANCE IN PREDICTING GLOMERULAR FILTRATION RATE. ESTIMATED GFR IS NOT APPLICABLE FOR DIALYSIS PATIENTS. POCT-GLUCOSE [id number] 06:33:00 Test Item Value Reference Range Comments POC-GLUCOSE METER (BEAKER) 44 mg/dL 70-110 Notified JORDON STAPLETON/TESTED AT [facility] (test fybi=8504) [address] [place] [address] POCT-GLUCOSE [id number] 03:10:00 Test Item Value Reference Range Comments POC-GLUCOSE METER (BEAKER) 406 mg/dL 70-110 Notified JORDON STAPLETON/TESTED AT [facility] (test hdzt=9584) [address] [place] [address] RAD, CHEST, 2 [id number] 22:01:00Reason for exam:->COUGHReason for exam: ->SHORTNESS OF [...] disease. No significant change from previous. Signed: Donald, Lg MDReport Verified Date/Time: 08/15/2018 22:01:46 Reading Location: [facility] Reading Room Electronically signed by: LG VALDEZ M.D. on 10:01 PMPREGNANCY SCREEN, [id number] 21:12:00 Test Item Value Reference Range Comments TEST URINE (BEAKER) (test ttil=949) Negative COMPREHENSIVE METABOLIC [id number] 17:43:00 Test Item Value Reference Range Comments TOTAL PROTEIN (BEAKER) 7.0 gm/dL 6.0-8.3 (test ksaw=076) ALBUMIN (BEAKER) (test 2.5 g/dL 3.5-5.0 mtai=0499) ALKALINE PHOSPHATASE 162 U/L 40-150 (BEAKER) (test zanc=492) BILIRUBIN TOTAL (BEAKER) 0.2 mg/dL 0.2-1.2 (test bkgq=712) SODIUM (BEAKER) (test 141 meq/L 136-145 ddmh=497) POTASSIUM (BEAKER) (test 4.0 meq/L 3.5-5.1 ckqw=320) CHLORIDE (BEAKER) (test 102 meq/L 98-107 fepz=376) CO2 (BEAKER) (test 30 meq/L 22-29 mjgx=549) BLOOD UREA NITROGEN 5 mg/dL 7-21 (BEAKER) (test ssqy=007) CREATININE (BEAKER) (test 0.69 mg/dL 0.57-1.25 bgxv=037) GLUCOSE RANDOM (BEAKER) 321 mg/dL 70-105 (test newb=394) CALCIUM (BEAKER) (test 9.2 mg/dL 8.4-10.2 dwad=617) AST (SGOT) (BEAKER) (test 12 U/L 5-34 mhjm=233) ALT (SGPT) (BEAKER) (test 8 U/L 6-55 esca=787) EGFR (BEAKER) (test 125 mL/min/1.73 sq ESTIMATED GFR IS NOT bltf=4596) m ACCURATE CREATININE CLEARANCE IN PREDICTING GLOMERULAR FILTRATION RATE. ESTIMATED GFR IS NOT APPLICABLE FOR DIALYSIS PATIENTS. POCT-LACTIC ACID, [id number] 17:20:00 Test Item Value Reference Range Comments POC-LACTIC ACID, VENOUS 1.4 mmol/L 0.9-1.7 TESTED AT [facility] [address] (BEAKER) (test bazy=1089) [place] [address] CBC W/PLT COUNT & AUTO [id number] 17:20:00 Test Item Value Reference Range Comments WHITE BLOOD CELL COUNT (BEAKER) (test zcxf=940) 8.5 K/ L 3.5-10.5 RED BLOOD CELL COUNT (BEAKER) (test atkl=357) 4.40 M/ L 3.93-5.22 HEMOGLOBIN (BEAKER) (test gagk=733) 11.3 GM/DL 11.2-15.7 HEMATOCRIT (BEAKER) (test uqvt=910) 37.6 % 34.1-44.9 MEAN CORPUSCULAR VOLUME (BEAKER) (test kmgs=588) 85.5 fL 79.4-94.8 MEAN CORPUSCULAR HEMOGLOBIN (BEAKER) (test 25.7 pg 25.6-32.2 xlrt=511) MEAN CORPUSCULAR HEMOGLOBIN CONC (BEAKER) (test 30.1 GM/DL 32.2-35.5 amgt=522) RED CELL DISTRIBUTION WIDTH (BEAKER) (test 15.1 % 11.7-14.4 qxgb=808) PLATELET COUNT (BEAKER) (test ykfp=283) 391 K/CU MM 150-450 MEAN PLATELET VOLUME (BEAKER) (test bdte=155) 10.6 fL 9.4-12.3 NUCLEATED RED BLOOD CELLS (BEAKER) (test 0 /100 WBC 0-0 jyrd=648) NEUTROPHILS RELATIVE PERCENT (BEAKER) (test 69 % wyxw=108) LYMPHOCYTES RELATIVE PERCENT (BEAKER) (test 19 % mrsi=998) MONOCYTES RELATIVE PERCENT (BEAKER) (test 7 % dctj=695) EOSINOPHILS RELATIVE PERCENT (BEAKER) (test 5 % pvpo=132) BASOPHILS RELATIVE PERCENT (BEAKER) (test 1 % gcne=542) NEUTROPHILS ABSOLUTE COUNT (BEAKER) (test 5.83 K/ L 1.56-6.13 mpaa=324) LYMPHOCYTES ABSOLUTE COUNT (BEAKER) (test 1.61 K/ L 1.18-3.74 vgfv=589) MONOCYTES ABSOLUTE COUNT (BEAKER) (test 0.56 K/ L 0.24-0.36 sibk=224) EOSINOPHILS ABSOLUTE COUNT (BEAKER) (test 0.44 K/ L 0.04-0.36 lsni=031) BASOPHILS ABSOLUTE COUNT (BEAKER) (test 0.05 K/ L 0.01-0.08 xjml=044) IMMATURE GRANULOCYTES-RELATIVE PERCENT (AKER) 0 % 0-1 (test xkwv=9809) AFB CULTURE + [id number] 13:38:00 Test Item Value Reference Range Comments CULTURE ([facility] (test No acid-fast bacilli isolated fmoi=9292) in 42 days AFB SMEAR ([facility] (test No acid fast bacilli seen gxfc=178) POCT-GLUCOSE [id number] 08:03:00 Test Item Value Reference Range Comments POC-GLUCOSE METER (BEAKER) 169 mg/dL 70-110 TESTED AT [address] (test bumv=6870) [place] [id number] BUN AND [id number] 06:31:00 Test Item Value Reference Range Comments BLOOD UREA NITROGEN 25 mg/dL 7-21 ([facility] (test pfks=673) CREATININE (AKER) (test 0.70 mg/dL 0.57-1.25 gpwt=284) EGFR ([facility] (test 124 mL/min/1.73 sq m ESTIMATED GFR IS NOT jlga=5166) ACCURATE CREATININE CLEARANCE IN PREDICTING GLOMERULAR FILTRATION RATE. ESTIMATED GFR IS NOT APPLICABLE FOR DIALYSIS PATIENTS. POCT-GLUCOSE [id number] 23:55:00 Test Item Value Reference Range Comments POC-GLUCOSE METER (BEAKER) 179 mg/dL 70-110 TESTED AT [address] (test fmiu=8772) [place] [id number] POCT-GLUCOSE [id number] 17:30:00 Test Item Value Reference Range Comments POC-GLUCOSE METER (BEAKER) 216 mg/dL 70-110 TESTED AT [address] (test mugl=0776) [place] [id number] POCT-GLUCOSE [id number] 11:49:00 Test Item Value Reference Range Comments POC-GLUCOSE METER (BEAKER) 97 mg/dL 70-110 TESTED AT [address] (test ycmz=8596) [place] [id number] POCT-GLUCOSE [id number] 08:09:00 Test Item Value Reference Range Comments POC-GLUCOSE METER (BEAKER) 72 mg/dL 70-110 TESTED AT [address] (test qkxz=7330) [place] [address] BUN AND [id number] 08:08:00 Test Item Value Reference Range Comments BLOOD UREA NITROGEN 23 mg/dL 7-21 (BEAKER) (test fhek=267) CREATININE (BEAKER) (test 0.62 mg/dL 0.57-1.25 xgny=423) EGFR (BEAKER) (test 142 mL/min/1.73 sq m ESTIMATED GFR IS NOT erez=4857) ACCURATE CREATININE CLEARANCE IN PREDICTING GLOMERULAR FILTRATION RATE. ESTIMATED GFR IS NOT APPLICABLE FOR DIALYSIS PATIENTS. POCT-GLUCOSE [id number] 21:04:00 Test Item Value Reference Range Comments POC-GLUCOSE METER (BEAKER) 143 mg/dL 70-110 TESTED AT [address] (test fndq=6237) [place] [address] POCT-GLUCOSE [id number] 17:36:00 Test Item Value Reference Range Comments POC-GLUCOSE METER (BEAKER) 195 mg/dL 70-110 TESTED AT [address] (test rnkk=5137) [place] [address] POCT-GLUCOSE [id number] 12:58:00 Test Item Value Reference Range Comments POC-GLUCOSE METER (BEAKER) 73 mg/dL 70-110 TESTED AT [address] (test ezgi=4508) [place] [address] POCT-GLUCOSE [id number] 08:07:00 Test Item Value Reference Range Comments POC-GLUCOSE METER (BEAKER) 320 mg/dL 70-110 Notified RN or MD Patient (test rvga=9410) refused repeat test/TESTED AT [place] [address] BUN AND [id number] 07:07:00 Test Item Value Reference Range Comments BLOOD UREA NITROGEN 25 mg/dL 7-21 (BEAKER) (test zelu=493) CREATININE (BEAKER) (test 0.92 mg/dL 0.57-1.25 Specimen slightly bbmv=941) hemolyzed EGFR (BEAKER) (test 90 mL/min/1.73 sq m ESTIMATED GFR IS NOT stug=0051) ACCURATE CREATININE CLEARANCE IN PREDICTING GLOMERULAR FILTRATION RATE. ESTIMATED GFR IS NOT APPLICABLE FOR DIALYSIS PATIENTS. CBC W/PLT COUNT & AUTO [id number] 06:10:00 Test Item Value Reference Range Comments WHITE BLOOD CELL COUNT (BEAKER) (test pubw=211) 14.1 K/ L 3.5-10.5 RED BLOOD CELL COUNT (BEAKER) (test vczb=953) 3.56 M/ L 3.93-5.22 HEMOGLOBIN (BEAKER) (test orjz=213) 9.4 GM/DL 11.2-15.7 HEMATOCRIT (BEAKER) (test mktm=920) 32.4 % 34.1-44.9 MEAN CORPUSCULAR VOLUME (BEAKER) (test obyk=578) 91.0 fL 79.4-94.8 MEAN CORPUSCULAR HEMOGLOBIN (BEAKER) (test 26.4 pg 25.6-32.2 mamt=120) MEAN CORPUSCULAR HEMOGLOBIN CONC (BEAKER) (test 29.0 GM/DL 32.2-35.5 ahtp=549) RED CELL DISTRIBUTION WIDTH (BEAKER) (test 19.9 % 11.7-14.4 dgsf=246) PLATELET COUNT (BEAKER) (test ibso=294) 348 K/CU MM 150-450 MEAN PLATELET VOLUME (BEAKER) (test ipnh=786) 10.8 fL 9.4-12.3 NUCLEATED RED BLOOD CELLS (BEAKER) (test 0 /100 WBC 0-0 qxxi=091) NEUTROPHILS RELATIVE PERCENT (BEAKER) (test 81 % ayki=918) LYMPHOCYTES RELATIVE PERCENT (BEAKER) (test 10 % aonc=323) MONOCYTES RELATIVE PERCENT (BEAKER) (test 8 % bqog=348) EOSINOPHILS RELATIVE PERCENT (BEAKER) (test 0 % ujsy=104) BASOPHILS RELATIVE PERCENT (BEAKER) (test 0 % ehzb=451) NEUTROPHILS ABSOLUTE COUNT (BEAKER) (test 11.47 K/ L 1.56-6.13 bgsa=801) LYMPHOCYTES ABSOLUTE COUNT (BEAKER) (test 1.37 K/ L 1.18-3.74 chyt=962) MONOCYTES ABSOLUTE COUNT (BEAKER) (test 1.08 K/ L 0.24-0.36 kszz=542) EOSINOPHILS ABSOLUTE COUNT (BEAKER) (test 0.03 K/ L 0.04-0.36 ykyk=282) BASOPHILS ABSOLUTE COUNT (BEAKER) (test 0.02 K/ L 0.01-0.08 iqyf=174) IMMATURE GRANULOCYTES-RELATIVE PERCENT (BEAKER) 1 % 0-1 (test mhng=9137) POCT-GLUCOSE [id number] 22:03:00 Test Item Value Reference Range Comments POC-GLUCOSE METER (BEAKER) 96 mg/dL 70-110 TESTED AT [address] (test byft=4607) [facility] [address] POCT-GLUCOSE [id number] 21:57:00 Test Item Value Reference Range Comments POC-GLUCOSE METER (BEAKER) 67 mg/dL 70-110 Notified JORDON STAPLETON/TESTED AT [facility] (test byuh=2127) [address] [place], [place] [id number] POCT-GLUCOSE [id number] 17:48:00 Test Item Value Reference Range Comments POC-GLUCOSE METER (BEAKER) 210 mg/dL 70-110 TESTED AT [address] (test hzzb=8140) [facility] [address] POCT-GLUCOSE [id number] 12:42:00 Test Item Value Reference Range Comments POC-GLUCOSE METER (BEAKER) 193 mg/dL 70-110 TESTED AT [address] (test ausx=6523) [facility] [address] POCT-GLUCOSE [id number] 08:38:00 Test Item Value Reference Range Comments POC-GLUCOSE METER (BEAKER) 139 mg/dL 70-110 TESTED AT [address] (test ymax=0434) [facility] [address] BASIC METABOLIC [id number] 06:31:00 Test Item Value Reference Range Comments SODIUM (BEAKER) (test 139 meq/L 136-145 qnax=298) POTASSIUM (BEAKER) (test 4.4 meq/L 3.5-5.1 ncoj=095) CHLORIDE (BEAKER) (test 102 meq/L 98-107 gblr=271) CO2 (BEAKER) (test 31 meq/L 22-29 jegh=327) BLOOD UREA NITROGEN 19 mg/dL 7-21 (BEAKER) (test pmlc=358) CREATININE (BEAKER) (test 0.77 mg/dL 0.57-1.25 ihsz=156) GLUCOSE RANDOM (BEAKER) 264 mg/dL 70-105 (test yssc=866) CALCIUM (BEAKER) (test 7.9 mg/dL 8.4-10.2 vtvl=184) EGFR (BEAKER) (test 111 mL/min/1.73 sq m ESTIMATED GFR IS NOT tbct=5958) ACCURATE CREATININE CLEARANCE IN PREDICTING GLOMERULAR FILTRATION RATE. ESTIMATED GFR IS NOT APPLICABLE FOR DIALYSIS PATIENTS. BUN AND [id number] 06:30:00 Test Item Value Reference Range Comments BLOOD UREA NITROGEN 19 mg/dL 7-21 (BEAKER) (test sxnx=907) CREATININE (BEAKER) (test 0.77 mg/dL 0.57-1.25 kfwf=128) EGFR (BEAKER) (test 111 mL/min/1.73 sq m ESTIMATED GFR IS NOT vknf=6514) ACCURATE CREATININE CLEARANCE IN PREDICTING GLOMERULAR FILTRATION RATE. ESTIMATED GFR IS NOT APPLICABLE FOR DIALYSIS PATIENTS. CBC W/PLT COUNT & AUTO [id number] 06:11:00 Test Item Value Reference Range Comments WHITE BLOOD CELL COUNT (BEAKER) (test dvvc=819) 14.2 K/ L 3.5-10.5 RED BLOOD CELL COUNT (BEAKER) (test nfke=128) 3.57 M/ L 3.93-5.22 HEMOGLOBIN (BEAKER) (test xeqi=582) 9.4 GM/DL 11.2-15.7 HEMATOCRIT (BEAKER) (test shmz=036) 32.7 % 34.1-44.9 MEAN CORPUSCULAR VOLUME (BEAKER) (test unsl=976) 91.6 fL 79.4-94.8 MEAN CORPUSCULAR HEMOGLOBIN (BEAKER) (test 26.3 pg 25.6-32.2 xlkp=448) MEAN CORPUSCULAR HEMOGLOBIN CONC (BEAKER) (test 28.7 GM/DL 32.2-35.5 pmww=540) RED CELL DISTRIBUTION WIDTH (BEAKER) (test 20.0 % 11.7-14.4 wljy=926) PLATELET COUNT (BEAKER) (test xyip=758) 352 K/CU MM 150-450 MEAN PLATELET VOLUME (BEAKER) (test pvoh=599) 10.9 fL 9.4-12.3 NUCLEATED RED BLOOD CELLS (BEAKER) (test 0 /100 WBC 0-0 iirl=751) NEUTROPHILS RELATIVE PERCENT (BEAKER) (test 84 % axje=974) LYMPHOCYTES RELATIVE PERCENT (BEAKER) (test 8 % rupw=784) MONOCYTES RELATIVE PERCENT (BEAKER) (test 6 % pxyb=527) EOSINOPHILS RELATIVE PERCENT (BEAKER) (test 0 % aeav=289) BASOPHILS RELATIVE PERCENT (BEAKER) (test 0 % uteg=167) NEUTROPHILS ABSOLUTE COUNT (BEAKER) (test 11.96 K/ L 1.56-6.13 lsvi=742) LYMPHOCYTES ABSOLUTE COUNT (BEAKER) (test 1.20 K/ L 1.18-3.74 kuio=165) MONOCYTES ABSOLUTE COUNT (BEAKER) (test 0.91 K/ L 0.24-0.36 kten=107) EOSINOPHILS ABSOLUTE COUNT (BEAKER) (test 0.01 K/ L 0.04-0.36 tkit=473) BASOPHILS ABSOLUTE COUNT (BEAKER) (test 0.02 K/ L 0.01-0.08 tcwl=646) IMMATURE GRANULOCYTES-RELATIVE PERCENT (BEAKER) 1 % 0-1 (test pvky=5375) POCT-GLUCOSE [id number] 21:38:00 Test Item Value Reference Range Comments POC-GLUCOSE METER (BEAKER) 266 mg/dL 70-110 TESTED AT [address] (test dmdn=5285) [place] [address] POCT-GLUCOSE [id number] 17:38:00 Test Item Value Reference Range Comments POC-GLUCOSE METER (BEAKER) 213 mg/dL 70-110 TESTED AT [address] (test rtlc=8813) [place] [address] POCT-GLUCOSE [id number] 13:23:00 Test Item Value Reference Range Comments POC-GLUCOSE METER (BEAKER) 272 mg/dL 70-110 TESTED AT [address] (test mpdv=0825) [place] [address] POCT-GLUCOSE [id number] 11:56:00 Test Item Value Reference Range Comments POC-GLUCOSE METER (BEAKER) 120 mg/dL 70-110 TESTED AT [address] (test hrgq=9275) [place] [address] POCT-GLUCOSE [id number] 08:20:00 Test Item Value Reference Range Comments POC-GLUCOSE METER (BEAKER) 88 mg/dL 70-110 TESTED AT [address] (test eoji=3065) [place] [address] BUN AND [id number] 05:59:00 Test Item Value Reference Range Comments BLOOD UREA NITROGEN 30 mg/dL 7-21 (BEAKER) (test ninc=301) CREATININE (BEAKER) (test 0.81 mg/dL 0.57-1.25 dgkk=732) EGFR (BEAKER) (test 104 mL/min/1.73 sq m ESTIMATED GFR IS NOT jbqg=1518) ACCURATE CREATININE CLEARANCE IN PREDICTING GLOMERULAR FILTRATION RATE. ESTIMATED GFR IS NOT APPLICABLE FOR DIALYSIS PATIENTS. CBC W/PLT COUNT & AUTO [id number] 05:24:00 Test Item Value Reference Range Comments WHITE BLOOD CELL COUNT (BEAKER) (test zuyb=145) 18.1 K/ L 3.5-10.5 RED BLOOD CELL COUNT (BEAKER) (test fkda=044) 3.48 M/ L 3.93-5.22 HEMOGLOBIN (BEAKER) (test mxsu=243) 9.2 GM/DL 11.2-15.7 HEMATOCRIT (BEAKER) (test xoeb=212) 31.2 % 34.1-44.9 MEAN CORPUSCULAR VOLUME (BEAKER) (test okzl=633) 89.7 fL 79.4-94.8 MEAN CORPUSCULAR HEMOGLOBIN (BEAKER) (test 26.4 pg 25.6-32.2 ymkt=136) MEAN CORPUSCULAR HEMOGLOBIN CONC (BEAKER) (test 29.5 GM/DL 32.2-35.5 ledk=354) RED CELL DISTRIBUTION WIDTH (BEAKER) (test 20.0 % 11.7-14.4 egza=837) PLATELET COUNT (BEAKER) (test znxk=791) 361 K/CU MM 150-450 MEAN PLATELET VOLUME (BEAKER) (test uisj=499) 10.6 fL 9.4-12.3 NUCLEATED RED BLOOD CELLS (BEAKER) (test 0 /100 WBC 0-0 udjf=640) NEUTROPHILS RELATIVE PERCENT (BEAKER) (test 85 % ajgj=095) LYMPHOCYTES RELATIVE PERCENT (BEAKER) (test 7 % ifim=684) MONOCYTES RELATIVE PERCENT (BEAKER) (test 7 % muzq=334) EOSINOPHILS RELATIVE PERCENT (BEAKER) (test 0 % pqcv=333) BASOPHILS RELATIVE PERCENT (BEAKER) (test 0 % mkvv=330) NEUTROPHILS ABSOLUTE COUNT (BEAKER) (test 15.39 K/ L 1.56-6.13 yoys=926) LYMPHOCYTES ABSOLUTE COUNT (BEAKER) (test 1.26 K/ L 1.18-3.74 hlfe=211) MONOCYTES ABSOLUTE COUNT (BEAKER) (test 1.18 K/ L 0.24-0.36 lrak=676) EOSINOPHILS ABSOLUTE COUNT (BEAKER) (test 0.03 K/ L 0.04-0.36 pbrz=056) BASOPHILS ABSOLUTE COUNT (BEAKER) (test 0.03 K/ L 0.01-0.08 twgh=804) IMMATURE GRANULOCYTES-RELATIVE PERCENT (BEAKER) 1 % 0-1 (test orfg=1989) POCT-GLUCOSE [id number] 20:50:00 Test Item Value Reference Range Comments POC-GLUCOSE METER (BEAKER) 260 mg/dL 70-110 TESTED AT [address] (test xbqm=0121) [place] [address] POCT-GLUCOSE [id number] 17:30:00 Test Item Value Reference Range Comments POC-GLUCOSE METER (BEAKER) 208 mg/dL 70-110 TESTED AT [address] (test eadf=3282) [place] [address] POCT-GLUCOSE [id number] 12:51:00 Test Item Value Reference Range Comments POC-GLUCOSE METER (BEAKER) 125 mg/dL 70-110 TESTED AT [address] (test dpbb=1820) [place] [address] BASIC METABOLIC [id number] 12:22:00 Test Item Value Reference Range Comments SODIUM (BEAKER) (test 141 meq/L 136-145 otce=238) POTASSIUM (BEAKER) (test 4.6 meq/L 3.5-5.1 hbcw=511) CHLORIDE (BEAKER) (test 99 meq/L 98-107 lbvl=853) CO2 (BEAKER) (test 35 meq/L 22-29 etzd=587) BLOOD UREA NITROGEN 24 mg/dL 7-21 (BEAKER) (test vnsn=216) CREATININE (BEAKER) (test 0.65 mg/dL 0.57-1.25 ahpx=043) GLUCOSE RANDOM (BEAKER) 57 mg/dL 70-105 (test ohvk=632) CALCIUM (BEAKER) (test 9.0 mg/dL 8.4-10.2 gntl=425) EGFR (BEAKER) (test 135 mL/min/1.73 sq m ESTIMATED GFR IS NOT jjdu=9927) ACCURATE CREATININE CLEARANCE IN PREDICTING GLOMERULAR FILTRATION RATE. ESTIMATED GFR IS NOT APPLICABLE FOR DIALYSIS PATIENTS. CBC W/PLT COUNT & AUTO [id number] 12:07:00 Test Item Value Reference Range Comments WHITE BLOOD CELL COUNT (BEAKER) (test zidi=364) 20.6 K/ L 3.5-10.5 RED BLOOD CELL COUNT (BEAKER) (test xcvy=047) 3.69 M/ L 3.93-5.22 HEMOGLOBIN (BEAKER) (test uvew=223) 9.8 GM/DL 11.2-15.7 HEMATOCRIT (BEAKER) (test raew=515) 33.5 % 34.1-44.9 MEAN CORPUSCULAR VOLUME (BEAKER) (test jtox=335) 90.8 fL 79.4-94.8 MEAN CORPUSCULAR HEMOGLOBIN (BEAKER) (test 26.6 pg 25.6-32.2 gdoz=691) MEAN CORPUSCULAR HEMOGLOBIN CONC (BEAKER) (test 29.3 GM/DL 32.2-35.5 szcs=318) RED CELL DISTRIBUTION WIDTH (BEAKER) (test 20.1 % 11.7-14.4 uxpc=307) PLATELET COUNT (BEAKER) (test yjym=675) 382 K/CU MM 150-450 MEAN PLATELET VOLUME (BEAKER) (test cpbl=908) 10.4 fL 9.4-12.3 NUCLEATED RED BLOOD CELLS (BEAKER) (test 0 /100 WBC 0-0 vygv=990) NEUTROPHILS RELATIVE PERCENT (BEAKER) (test 87 % eoax=158) LYMPHOCYTES RELATIVE PERCENT (BEAKER) (test 6 % llpr=327) MONOCYTES RELATIVE PERCENT (BEAKER) (test 4 % xrza=050) EOSINOPHILS RELATIVE PERCENT (BEAKER) (test 1 % dkkh=712) BASOPHILS RELATIVE PERCENT (BEAKER) (test 0 % smit=186) NEUTROPHILS ABSOLUTE COUNT (BEAKER) (test 18.01 K/ L 1.56-6.13 bmii=567) LYMPHOCYTES ABSOLUTE COUNT (BEAKER) (test 1.30 K/ L 1.18-3.74 capr=799) MONOCYTES ABSOLUTE COUNT (BEAKER) (test 0.75 K/ L 0.24-0.36 qauu=207) EOSINOPHILS ABSOLUTE COUNT (BEAKER) (test 0.29 K/ L 0.04-0.36 noey=926) BASOPHILS ABSOLUTE COUNT (BEAKER) (test 0.04 K/ L 0.01-0.08 lylr=333) IMMATURE GRANULOCYTES-RELATIVE PERCENT (BEAKER) 1 % 0-1 (test dhte=4832) POCT-GLUCOSE [id number] 11:57:00 Test Item Value Reference Range Comments POC-GLUCOSE METER (BEAKER) 59 mg/dL 70-110 Will Repeat Test/TESTED AT (test rlwe=3128) [facility] [address] [facility] [address] RAD, CHEST, 1 VIEW, NON [id number] 11:31:00Reason for exam:->interval change in upper lobe [...] hip of unclear clinical significance. Signed: Tripp Jones MDReport Verified Date/Time: 06/26/2018 11:31: 01 Reading Location: [address] Ortho Consult Reading Room RAD, ABDOMEN/ KUB, 1 VIEW [id number] 11:31:00Reason for exam:->assess for stool burdenShould this [...] hip of unclear clinical significance. Signed: Tripp Jones MDReport Verified Date/Time: 06/26/2018 11:31:01 Reading Location: [facility] B1 [id number] Ortho Consult Reading Room POCT-GLUCOSE [id number] 08:23:00 Test Item Value Reference Range Comments POC-GLUCOSE METER (BEAKER) 109 mg/dL 70-110 TESTED AT [address] (test kxrh=5980) [facility] [address] LACTIC ACID, VENOUS, WHOLE [id number] 06:39:00 Test Item Value Reference Range Comments LACTATE BLOOD VENOUS (2) (BEAKER) (test 1.1 mmol/L 0.5-2.2 nctd=1467) Effective 02/26/2016: Units/Reference Range ChangeNew: 0.5-2.2 mmol/L Previous: 5 -20 mg/dLBUN AND [id number] 06:08:00 Test Item Value Reference Range Comments BLOOD UREA NITROGEN 25 mg/dL 7-21 (BEAKER) (test rtju=599) CREATININE (BEAKER) (test 0.70 mg/dL 0.57-1.25 assl=728) EGFR (BEAKER) (test 124 mL/min/1.73 sq m ESTIMATED GFR IS NOT psku=2251) ACCURATE CREATININE CLEARANCE IN PREDICTING GLOMERULAR FILTRATION RATE. ESTIMATED GFR IS NOT APPLICABLE FOR DIALYSIS PATIENTS. POCT-GLUCOSE [id number] 05:27:00 Test Item Value Reference Range Comments POC-GLUCOSE METER (BEAKER) 120 mg/dL 70-110 TESTED AT [address] (test abjq=7723) [facility] [address] POCT-GLUCOSE [id number] 21:14:00 Test Item Value Reference Range Comments POC-GLUCOSE METER (BEAKER) 216 mg/dL 70-110 TESTED AT [address] (test qbpx=4697) [facility] [address] POCT-GLUCOSE [id number] 17:08:00 Test Item Value Reference Range Comments POC-GLUCOSE METER (BEAKER) 197 mg/dL 70-110 TESTED AT [address] (test onmx=0734) [place] [id number] POCT-GLUCOSE [id number] 11:51:00 Test Item Value Reference Range Comments POC-GLUCOSE METER (BEAKER) 160 mg/dL 70-110 TESTED AT [address] (test hnvo=2387) [place] [address] POCT-GLUCOSE [id number] 08:13:00 Test Item Value Reference Range Comments POC-GLUCOSE METER (BEAKER) 376 mg/dL 70-110 Notified RN MD/TESTED AT [facility] (test vhrz=8874) [address] [place] [address] BUN AND [id number] 07:14:00 Test Item Value Reference Range Comments BLOOD UREA NITROGEN 28 mg/dL 7-21 (BEAKER) (test lpqp=614) CREATININE (BEAKER) (test 0.76 mg/dL 0.57-1.25 nrou=043) EGFR (BEAKER) (test 112 mL/min/1.73 sq m ESTIMATED GFR IS NOT ugxt=2367) ACCURATE CREATININE CLEARANCE IN PREDICTING GLOMERULAR FILTRATION RATE. ESTIMATED GFR IS NOT APPLICABLE FOR DIALYSIS PATIENTS. POCT-GLUCOSE [id number] 22:17:00 Test Item Value Reference Range Comments POC-GLUCOSE METER (BEAKER) 163 mg/dL 70-110 TESTED AT [address] (test ayuo=7983) [place] [id number] POCT-GLUCOSE [id number] 16:46:00 Test Item Value Reference Range Comments POC-GLUCOSE METER (BEAKER) 301 mg/dL 70-110 TESTED AT [address] (test yrjz=3531) [place] [address] POCT-GLUCOSE [id number] 12:12:00 Test Item Value Reference Range Comments POC-GLUCOSE METER (BEAKER) 400 mg/dL 70-110 Notified RN MD/TESTED AT [facility] (test omio=9131) [address] [place], [place] [address] POCT-GLUCOSE [id number] 07:42:00 Test Item Value Reference Range Comments POC-GLUCOSE METER (BEAKER) 65 mg/dL 70-110 Notified RN /TESTED AT [facility] (test zbhs=4275) [address] [place], [place] [address] BUN AND [id number] 06:26:00 Test Item Value Reference Range Comments BLOOD UREA NITROGEN 27 mg/dL 7-21 (BEAKER) (test tcvv=802) CREATININE (BEAKER) (test 0.70 mg/dL 0.57-1.25 jtqy=135) EGFR (BEAKER) (test 124 mL/min/1.73 sq m ESTIMATED GFR IS NOT qfej=2488) ACCURATE CREATININE CLEARANCE IN PREDICTING GLOMERULAR FILTRATION RATE. ESTIMATED GFR IS NOT APPLICABLE FOR DIALYSIS PATIENTS. CF RESPIRATORY [id number] 02:48:00 Test Item Value Reference Range Comments CULTURE (BEAKER) (test PSEUDOMONAS 3+ Pseudomonas tjcb=2400) AERUGINOSA aeruginosa (MUCOID-PHENOTYPE) (Mucoid-phenotype) Amikacin (test code=1) [...] >4 CULTURE (BEAKER) (test PSEUDOMONAS 3+ Pseudomonas tgbz=2754) AERUGINOSA aeruginosa (MUCOID-PHENOTYPE) (Mucoid-phenotype)of a second type [...] or >4 4+ Normal respiratory derick presentPOCT-GLUCOSE [id number] 21:45:00 Test Item Value Reference Range Comments POC-GLUCOSE METER (BEAKER) 153 mg/dL 70-110 TESTED AT [address] (test ugry=7106) [place] [address] POCT-GLUCOSE [id number] 17:25:00 Test Item Value Reference Range Comments POC-GLUCOSE METER (BEAKER) 237 mg/dL 70-110 TESTED AT [address] (test tehj=2560) [place] [address] POCT-GLUCOSE [id number] 11:39:00 Test Item Value Reference Range Comments POC-GLUCOSE METER (BEAKER) 126 mg/dL 70-110 TESTED AT [address] (test ucaj=6040) [place] [address] BUN AND [id number] 07:39:00 Test Item Value Reference Range Comments BLOOD UREA NITROGEN 33 mg/dL 7-21 (BEAKER) (test nzxi=655) CREATININE (BEAKER) (test 0.84 mg/dL 0.57-1.25 mpet=204) EGFR (BEAKER) (test 100 mL/min/1.73 sq m ESTIMATED GFR IS NOT xfua=6875) ACCURATE CREATININE CLEARANCE IN PREDICTING GLOMERULAR FILTRATION RATE. ESTIMATED GFR IS NOT APPLICABLE FOR DIALYSIS PATIENTS. POCT-GLUCOSE [id number] 07:30:00 Test Item Value Reference Range Comments POC-GLUCOSE METER (BEAKER) 424 mg/dL 70-110 Notified JORDON STAPLETON/TESTED AT [facility] (test yath=1231) [address] [place] [address] POCT-GLUCOSE [id number] 21:36:00 Test Item Value Reference Range Comments POC-GLUCOSE METER (BEAKER) 241 mg/dL 70-110 TESTED AT [address] (test omwb=8432) [place] [id number] POCT-GLUCOSE [id number] 17:03:00 Test Item Value Reference Range Comments POC-GLUCOSE METER (BEAKER) 405 mg/dL 70-110 Baby tested Mother ID (test zblj=5019) used/TESTED AT [place] [address] POCT-GLUCOSE [id number] 14:17:00 Test Item Value Reference Range Comments POC-GLUCOSE METER (BEAKER) 81 mg/dL 70-110 TESTED AT [address] (test yuhu=9844) [place] [address] HEMOGLOBIN [id number] 09:17:00 Test Item Value Reference Range Comments HEMOGLOBIN A1C (BEAKER) (test jths=999) 13.9 % 4.3-6.1 POCT-GLUCOSE [id number] 07:56:00 Test Item Value Reference Range Comments POC-GLUCOSE METER (BEAKER) 226 mg/dL 70-110 TESTED AT [address] (test mlji=2476) [place] [address] BUN AND [id number] 06:35:00 Test Item Value Reference Range Comments BLOOD UREA NITROGEN 25 mg/dL 7-21 (BEAKER) (test pzzv=743) CREATININE (BEAKER) (test 0.74 mg/dL 0.57-1.25 tvny=394) EGFR (BEAKER) (test 116 mL/min/1.73 sq m ESTIMATED GFR IS NOT xwhp=6024) ACCURATE CREATININE CLEARANCE IN PREDICTING GLOMERULAR FILTRATION RATE. ESTIMATED GFR IS NOT APPLICABLE FOR DIALYSIS PATIENTS. POCT-GLUCOSE [id number] 21:56:00 Test Item Value Reference Range Comments POC-GLUCOSE METER (BEAKER) 347 mg/dL 70-110 Notified JORDON STAPLETON/TESTED AT [facility] (test klhy=5620) [address] [place], [place] [address] POCT-GLUCOSE [id number] 17:05:00 Test Item Value Reference Range Comments POC-GLUCOSE METER (BEAKER) 163 mg/dL 70-110 TESTED AT [address] (test zyyn=4633) [place] [address] POCT-GLUCOSE [id number] 12:36:00 Test Item Value Reference Range Comments POC-GLUCOSE METER (BEAKER) 124 mg/dL 70-110 TESTED AT [address] (test gezx=7988) [place] [address] POCT-GLUCOSE [id number] 07:25:00 Test Item Value Reference Range Comments POC-GLUCOSE METER (BEAKER) 161 mg/dL 70-110 TESTED AT [address] (test qsqo=2983) [place] [address] BUN AND [id number] 03:23:00 Test Item Value Reference Range Comments BLOOD UREA NITROGEN 23 mg/dL 7-21 (BEAKER) (test blkw=807) CREATININE (BEAKER) (test 0.75 mg/dL 0.57-1.25 tpuj=817) EGFR (BEAKER) (test 114 mL/min/1.73 sq m ESTIMATED GFR IS NOT bwvs=8108) ACCURATE CREATININE CLEARANCE IN PREDICTING GLOMERULAR FILTRATION RATE. ESTIMATED GFR IS NOT APPLICABLE FOR DIALYSIS PATIENTS. POCT-GLUCOSE [id number] 21:35:00 Test Item Value Reference Range Comments POC-GLUCOSE METER (BEAKER) 126 mg/dL 70-110 TESTED AT [address] (test rhcw=3327) [place] [address] POCT-GLUCOSE [id number] 17:43:00 Test Item Value Reference Range Comments POC-GLUCOSE METER (BEAKER) 229 mg/dL 70-110 TESTED AT [address] (test jmoh=8793) [place] [address] POCT-GLUCOSE [id number] 13:02:00 Test Item Value Reference Range Comments POC-GLUCOSE METER (BEAKER) 155 mg/dL 70-110 TESTED AT [address] (test vycd=4683) [place] [address] POCT-GLUCOSE [id number] 09:12:00 Test Item Value Reference Range Comments POC-GLUCOSE METER (BEAKER) 252 mg/dL 70-110 TESTED AT [address] (test davv=4477) [place] [address] POCT-GLUCOSE [id number] 08:38:00 Test Item Value Reference Range Comments POC-GLUCOSE METER (BEAKER) 58 mg/dL 70-110 Notified JORDON STAPLETON/TESTED AT [facility] (test dspd=9834) [address] [place], [place] [address] BLOOD [id number] 06:00:00 Test Item Value Reference Range Comments CULTURE (BEAKER) (test jbcp=6918) No growth in 5 days BLOOD [id number] 06:00:00 Test Item Value Reference Range Comments CULTURE (BEAKER) (test sjux=2062) No growth in 5 days POCT-GLUCOSE [id number] 21:09:00 Test Item Value Reference Range Comments POC-GLUCOSE METER (BEAKER) 365 mg/dL 70-110 Notified JORDON STAPLETON/TESTED AT [facility] (test wbhf=3145) [address] [place], [place] [address] POCT-GLUCOSE [id number] 18:57:00 Test Item Value Reference Range Comments POC-GLUCOSE METER (BEAKER) 395 mg/dL 70-110 TESTED AT [address] (test oipo=5356) [place] [address] POCT-GLUCOSE [id number] 14:19:00 Test Item Value Reference Range Comments POC-GLUCOSE METER (BEAKER) 387 mg/dL 70-110 Notified JORDON STAPLETON/TESTED AT [facility] (test gsyj=8930) [address] [place], [place] [address] SPUTUM CULTURE + GRAM [id number] 09:38:00 Test Item Value Reference Range Comments CULTURE (BEAKER) (test ztjw=0128) See comment GRAM STAIN RESULT (BEAKER) (test 1+ WBCs wyyn=7438) GRAM STAIN RESULT (BEAKER) (test 0-5 epithelial cells ybge=48737) GRAM STAIN RESULT (BEAKER) (test No organisms seen xzjq=015777) Please refer to CF respiratory culture for results. Charges for this culture and gram stain are credited.POCT-GLUCOSE [id number] 09:12:00 Test Item Value Reference Range Comments POC-GLUCOSE METER (BEAKER) 41 mg/dL 70-110 Baby tested Mother ID (test rqzd=0653) used/TESTED AT [place] [id number] BASIC METABOLIC [id number] 05:17:00 Test Item Value Reference Range Comments SODIUM (BEAKER) (test 139 meq/L 136-145 spae=073) POTASSIUM (BEAKER) (test 3.9 meq/L 3.5-5.1 ybyo=677) CHLORIDE (BEAKER) (test 99 meq/L 98-107 covl=746) CO2 (BEAKER) (test 31 meq/L 22-29 dcth=634) BLOOD UREA NITROGEN 21 mg/dL 7-21 (BEAKER) (test kawe=474) CREATININE (BEAKER) (test 0.76 mg/dL 0.57-1.25 jreg=556) GLUCOSE RANDOM (BEAKER) 76 mg/dL 70-105 (test vuyh=282) CALCIUM (BEAKER) (test 8.9 mg/dL 8.4-10.2 tzrc=727) EGFR (BEAKER) (test 112 mL/min/1.73 sq m ESTIMATED GFR IS NOT swyp=6642) ACCURATE CREATININE CLEARANCE IN PREDICTING GLOMERULAR FILTRATION RATE. ESTIMATED GFR IS NOT APPLICABLE FOR DIALYSIS PATIENTS. POCT-GLUCOSE [id number] 22:15:00 Test Item Value Reference Range Comments POC-GLUCOSE METER (BEAKER) 329 mg/dL 70-110 Notified JORDON STAPLETON/TESTED AT [facility] (test mhlh=1715) [address] [place] [address] POCT-GLUCOSE [id number] 20:47:00 Test Item Value Reference Range Comments POC-GLUCOSE METER (BEAKER) 432 mg/dL 70-110 Notified JORDON STAPLETON/TESTED AT [facility] (test kyfk=9016) [address] [place], [place] [address] POCT-GLUCOSE [id number] 18:31:00 Test Item Value Reference Range Comments POC-GLUCOSE METER (BEAKER) 296 mg/dL 70-110 TESTED AT [address] (test zfrz=6258) [place] [address] POCT-GLUCOSE [id number] 18:08:00 Test Item Value Reference Range Comments POC-GLUCOSE METER (BEAKER) 198 mg/dL 70-110 TESTED AT [address] (test recb=1956) [place] [address] POCT-GLUCOSE [id number] 18:08:00 Test Item Value Reference Range Comments POC-GLUCOSE METER (BEAKER) 46 mg/dL 70-110 TESTED AT [address] (test jcon=1534) [place] [address] POCT-GLUCOSE [id number] 12:42:00 Test Item Value Reference Range Comments POC-GLUCOSE METER (BEAKER) 71 mg/dL 70-110 TESTED AT [address] (test opko=6089) [place] [address] TROPONIN [id number] 10:01:00 Test Item Value Reference Range Comments TROPONIN I (BEAKER) (test wqpb=255) < ng/mL 0.00-0.03 Troponin I (TnI) levels [...] acute neurological disease, and persistent tachyarrhythmia.BASIC METABOLIC [id number] 09:53:00 Test Item Value Reference Range Comments SODIUM (BEAKER) (test 134 meq/L 136-145 jzpf=050) POTASSIUM (BEAKER) (test 4.3 meq/L 3.5-5.1 vyqc=589) CHLORIDE (BEAKER) (test 97 meq/L 98-107 kzxl=056) CO2 (BEAKER) (test 28 meq/L 22-29 zdpk=445) BLOOD UREA NITROGEN 23 mg/dL 7-21 (BEAKER) (test ffem=108) CREATININE (BEAKER) (test 0.84 mg/dL 0.57-1.25 njtk=103) GLUCOSE RANDOM (BEAKER) 397 mg/dL 70-105 (test hdoj=861) CALCIUM (BEAKER) (test 8.8 mg/dL 8.4-10.2 yntw=881) EGFR (BEAKER) (test 100 mL/min/1.73 sq m ESTIMATED GFR IS NOT mzjc=7196) ACCURATE CREATININE CLEARANCE IN PREDICTING GLOMERULAR FILTRATION RATE. ESTIMATED GFR IS NOT APPLICABLE FOR DIALYSIS PATIENTS. POCT-GLUCOSE [id number] 08:49:00 Test Item Value Reference Range Comments POC-GLUCOSE METER (BEAKER) 168 mg/dL 70-110 TESTED AT [facility] [address] [facility] (test dzal=8808) [facility] [address] POCT-GLUCOSE [id number] 20:59:00 Test Item Value Reference Range Comments POC-GLUCOSE METER (BEAKER) 218 mg/dL 70-110 TESTED AT [facility] [address] [facility] (test tvvv=3705) [facility] [address] POCT-GLUCOSE [id number] 17:20:00 Test Item Value Reference Range Comments POC-GLUCOSE METER (BEAKER) 259 mg/dL 70-110 TESTED AT [address] (test riwg=0299) [facility] [address] POCT-GLUCOSE [id number] 15:10:00 Test Item Value Reference Range Comments POC-GLUCOSE METER (BEAKER) 263 mg/dL 70-110 TESTED AT [address] (test xwoc=9689) [place] [address] POCT-GLUCOSE [id number] 08:12:00 Test Item Value Reference Range Comments POC-GLUCOSE METER (BEAKER) 126 mg/dL 70-110 TESTED AT [address] (test sbcp=4745) [place] [id number] BASIC METABOLIC [id number] 06:51:00 Test Item Value Reference Range Comments SODIUM (BEAKER) (test 139 meq/L 136-145 andw=460) POTASSIUM (BEAKER) (test 4.3 meq/L 3.5-5.1 hxfd=260) CHLORIDE (BEAKER) (test 102 meq/L 98-107 syxh=950) CO2 (BEAKER) (test 30 meq/L 22-29 lbdf=013) BLOOD UREA NITROGEN 17 mg/dL 7-21 (BEAKER) (test ezei=905) CREATININE (BEAKER) (test 0.74 mg/dL 0.57-1.25 wvvn=887) GLUCOSE RANDOM (BEAKER) 184 mg/dL 70-105 (test gpck=974) CALCIUM (BEAKER) (test 8.7 mg/dL 8.4-10.2 xufz=023) EGFR (BEAKER) (test 116 mL/min/1.73 sq m ESTIMATED GFR IS NOT sruh=2259) ACCURATE CREATININE CLEARANCE IN PREDICTING GLOMERULAR FILTRATION RATE. ESTIMATED GFR IS NOT APPLICABLE FOR DIALYSIS PATIENTS. POCT-GLUCOSE [id number] 21:02:00 Test Item Value Reference Range Comments POC-GLUCOSE METER (BEAKER) 192 mg/dL 70-110 TESTED AT [address] (test kjad=6374) [facility] [address] POCT-GLUCOSE [id number] 16:18:00 Test Item Value Reference Range Comments POC-GLUCOSE METER (BEAKER) 199 mg/dL 70-110 TESTED AT [address] (test ahjs=3979) [place] [address] POCT-GLUCOSE [id number] 14:34:00 Test Item Value Reference Range Comments POC-GLUCOSE METER (BEAKER) 332 mg/dL 70-110 TESTED AT [address] (test aeoo=4720) [place] [address] POCT-GLUCOSE [id number] 11:37:00 Test Item Value Reference Range Comments POC-GLUCOSE METER (BEAKER) 305 mg/dL 70-110 Notified JORDON STAPLETON/TESTED AT [facility] (test qzre=9231) [address] [place] [address] POCT-GLUCOSE [id number] 10:22:00 Test Item Value Reference Range Comments POC-GLUCOSE METER (BEAKER) 322 mg/dL 70-110 Notified JORDON STAPLETON/TESTED AT [facility] (test dwut=6822) [address] [place] [address] BASIC METABOLIC [id number] 09:42:00 Test Item Value Reference Range Comments SODIUM (BEAKER) (test 135 meq/L 136-145 aeuj=809) POTASSIUM (BEAKER) (test 4.1 meq/L 3.5-5.1 oexh=155) CHLORIDE (BEAKER) (test 100 meq/L 98-107 lhsi=627) CO2 (BEAKER) (test 30 meq/L 22-29 oyly=415) BLOOD UREA NITROGEN 13 mg/dL 7-21 (BEAKER) (test jwuw=939) CREATININE (BEAKER) (test 0.65 mg/dL 0.57-1.25 gtyk=791) GLUCOSE RANDOM (BEAKER) 149 mg/dL 70-105 (test xxcl=906) CALCIUM (BEAKER) (test 8.9 mg/dL 8.4-10.2 kxim=097) EGFR (BEAKER) (test 135 mL/min/1.73 sq m ESTIMATED GFR IS NOT udrb=3770) ACCURATE CREATININE CLEARANCE IN PREDICTING GLOMERULAR FILTRATION RATE. ESTIMATED GFR IS NOT APPLICABLE FOR DIALYSIS PATIENTS. POCT-GLUCOSE [id number] 09:24:00 Test Item Value Reference Range Comments POC-GLUCOSE METER (BEAKER) 169 mg/dL 70-110 TESTED AT [place] [address] [facility] (test zacx=0921) [place] [address] POCT-GLUCOSE [id number] 08:27:00 Test Item Value Reference Range Comments POC-GLUCOSE METER (BEAKER) 176 mg/dL 70-110 TESTED AT [facility] [address] [facility] (test emih=5277) [facility] [address] POCT-GLUCOSE [id number] 06:58:00 Test Item Value Reference Range Comments POC-GLUCOSE METER (BEAKER) 214 mg/dL 70-110 TESTED AT [facility] [address] [facility] (test abes=5142) [facility] [address] RESPIRATORY PANEL [id number] 06:36:00 Test Item Value Reference Range Comments HUMAN METAPNEUMOVIRUS (BEAKER) (test Not detected Not detected, Equivocal fsxs=3933) RHINOVIRUS (BEAKER) (test tvfh=4664) Not detected Not detected, Equivocal INFLUENZA A (BEAKER) (test yhzv=4429) Not detected Not detected, Equivocal INFLUENZA A (NO SUBTYPE) (test Not detected, Equivocal srec=2400) INFLUENZA A SUBTYPE H1 (BEAKER) (test Not detected, Equivocal gnuc=8374) INFLUENZA A SUBTYPE H3 (BEAKER) (test Not detected, Equivocal twbu=5335) INFLUENZA A SUBTYPE H1-2009 (BEAKER) Not detected, Equivocal (test ookw=7741) INFLUENZA B (BEAKER) (test toxo=3432) Not detected Not detected, Equivocal RESPIRATORY SYNCYTIAL VIRUS (BEAKER) Not detected Not detected, Equivocal (test prjm=0183) PARAINFLUENZA VIRUS 1 (BEAKER) (test Not detected Not detected, Equivocal nyzq=7443) PARAINFLUENZA VIRUS 2 (BEAKER) (test Not detected Not detected, Equivocal pfop=3775) PARAINFLUENZA VIRUS 3 (BEAKER) (test Not detected Not detected, Equivocal sbhn=1498) PARAINFLUENZA VIRUS 4 (BEAKER) (test Not detected Not detected, Equivocal xsvl=4662) ADENOVIRUS (BEAKER) (test ozfr=1059) Not detected Not detected, Equivocal CORONAVIRUS 229E (BEAKER) (test Not detected Not detected, Equivocal uobe=9847) CORONAVIRUS HKU1 (BEAKER) (test Not detected Not detected, Equivocal kind=6887) CORONAVIRUS NL63 (BEAKER) (test Not detected Not detected, Equivocal amsj=9216) CORONAVIRUS OC43 (BEAKER) (test Not detected Not detected, Equivocal qnzn=7072) BORDETELLA PERTUSSIS (BEAKER) (test Not detected Not detected, Equivocal ooum=9468) CHLAMYDOPHILA PNEUMONIAE (BEAKER) (test Not detected Not detected, Equivocal eahj=8197) MYCOPLASMA PNEUMONIAE (BEAKER) (test Not detected Not detected, Equivocal svcq=5384) Other viruses and bacteria not targeted by this PCR panel cannot be excluded; therefore clinical correlation and follow up of serology, culture results, and other molecular studies is required. The results are not intended to be used as the sole means for clinical diagnosis or patient management decisions. This sample was tested at the [facility] using the [employer] FilmArray Respiratory Panel. It is FDA cleared and has been verified and approved by the [facility] for clinical use on nasal swab specimens. It is not FDA-cleared for use on bronchial wash/lavage samples. However, for this sample type, validation was performed and test characteristics were determined and approved, by [facility] for clinical use under the Clinical Laboratory Improvement Amendments (CLIA) of 1988 requirements. Therefore, FDA clearance isnot required. This laboratory is CLIA-certified and [employer] (CAP)-accredited to perform high complexity testing.Other viruses and bacteria not targeted by this PCR panel cannot be excluded; therefore clinical correlation and follow up of serology, culture results, and other molecular studies is required. The results are not intended to be used as the sole means for clinical diagnosis or patient management decisions. This sample was tested at the [facility] using the [employer] FilmArray Respiratory Panel. It is FDA cleared and has been verified andapproved by the [facility] for clinical use on nasal swab specimens. It is not FDA-cleared for use on bronchial wash/lavage samples. However, for this sample type, validation was performed and test characteristics were determined and approved, by [facility] for clinical use under the Clinical Laboratory Improvement Amendments (CLIA) of 1988 requirements. Therefore, FDA clearance is not required. This laboratory is CLIA-certified and College ofAmerican Pathologists (CAP)-accredited to perform high complexity testing.POCT-GLUCOSE [id number] 05:59:00 Test Item Value Reference Range Comments POC-GLUCOSE METER (BEAKER) 214 mg/dL 70-110 TESTED AT [facility] [address] (test szkm=2852) [facility] [address] [id number] 05:19:00 Test Item Value Reference Range Comments MAGNESIUM (BEAKER) (test rrgq=033) 1.7 mg/dL 1.6-2.6 If last glucose was less than 500, may do bedside glucose instead of serum glucose.[id number] 05:19:00 Test Item Value Reference Range Comments GLUCOSE RANDOM (BEAKER) (test ttvd=999) 265 mg/dL 70-105 If last glucose was less than 500, may do bedside glucose instead of serum glucose.BASIC METABOLIC [id number] 05:19:00 Test Item Value Reference Range Comments SODIUM (BEAKER) (test 133 meq/L 136-145 pprq=834) POTASSIUM (BEAKER) (test 4.4 meq/L 3.5-5.1 wedd=174) CHLORIDE (BEAKER) (test 97 meq/L 98-107 ezkc=513) CO2 (BEAKER) (test 30 meq/L 22-29 jbsz=437) BLOOD UREA NITROGEN 14 mg/dL 7-21 (BEAKER) (test ujkw=061) CREATININE (BEAKER) (test 0.71 mg/dL 0.57-1.25 eohk=897) GLUCOSE RANDOM (BEAKER) 265 mg/dL 70-105 (test dzse=634) CALCIUM (BEAKER) (test 8.8 mg/dL 8.4-10.2 hwkc=741) EGFR (BEAKER) (test 122 mL/min/1.73 sq m ESTIMATED GFR IS NOT pbym=1322) ACCURATE CREATININE CLEARANCE IN PREDICTING GLOMERULAR FILTRATION RATE. ESTIMATED GFR IS NOT APPLICABLE FOR DIALYSIS PATIENTS. If last glucose was less than 500, may do bedside glucose instead of serum glucose.POCT-GLUCOSE [id number] 04:46:00 Test Item Value Reference Range Comments POC-GLUCOSE METER (BEAKER) 272 mg/dL 70-110 TESTED AT [address] (test trub=0451) [facility] [address] POCT-GLUCOSE [id number] 03:44:00 Test Item Value Reference Range Comments POC-GLUCOSE METER (BEAKER) 326 mg/dL 70-110 TESTED AT [address] (test hyzv=0934) [facility] [address] POCT-GLUCOSE [id number] 02:12:00 Test Item Value Reference Range Comments POC-GLUCOSE METER (BEAKER) 217 mg/dL 70-110 TESTED AT [address] (test jveb=1039) [facility] [address] [id number] 02:02:00 Test Item Value Reference Range Comments POTASSIUM (BEAKER) (test fmdd=327) 3.9 meq/L 3.5-5.1 If last glucose was less than 500, may do bedside glucose instead of serum glucose.[id number] 02:02:00 Test Item Value Reference Range Comments GLUCOSE RANDOM (BEAKER) (test encn=070) 122 mg/dL 70-105 If last glucose was less than 500, may do bedside glucose instead of serum glucose.BASIC METABOLIC [id number] 02:02:00 Test Item Value Reference Range Comments SODIUM (BEAKER) (test 135 meq/L 136-145 vmgx=800) POTASSIUM (BEAKER) (test 3.9 meq/L 3.5-5.1 xvov=065) CHLORIDE (BEAKER) (test 100 meq/L 98-107 awjn=665) CO2 (BEAKER) (test 27 meq/L 22-29 vpgn=973) BLOOD UREA NITROGEN 14 mg/dL 7-21 (BEAKER) (test ctiy=515) CREATININE (BEAKER) (test 0.70 mg/dL 0.57-1.25 qrhz=341) GLUCOSE RANDOM (BEAKER) 122 mg/dL 70-105 (test sdkg=315) CALCIUM (BEAKER) (test 8.6 mg/dL 8.4-10.2 hxfg=479) EGFR (BEAKER) (test 124 mL/min/1.73 sq m ESTIMATED GFR IS NOT pmod=5925) ACCURATE CREATININE CLEARANCE IN PREDICTING GLOMERULAR FILTRATION RATE. ESTIMATED GFR IS NOT APPLICABLE FOR DIALYSIS PATIENTS. If last glucose was less than 500, may do bedside glucose instead of serum glucose.POCT-GLUCOSE [id number] 01:12:00 Test Item Value Reference Range Comments POC-GLUCOSE METER (BEAKER) 106 mg/dL 70-110 TESTED AT [address] (test jkkm=3607) [facility] [address] POCT-GLUCOSE [id number] 00:39:00 Test Item Value Reference Range Comments POC-GLUCOSE METER (BEAKER) 51 mg/dL 70-110 TESTED AT [address] (test dnrf=2411) [facility] [address] POCT-GLUCOSE [id number] 00:30:00 Test Item Value Reference Range Comments POC-GLUCOSE METER (BEAKER) 51 mg/dL 70-110 TESTED AT [address] (test xyfm=3379) [place] [id number] 22:06:00 Test Item Value Reference Range Comments POTASSIUM (BEAKER) (test uqcd=055) 3.8 meq/L 3.5-5.1 If last glucose was less than 500, may do bedside glucose instead of serum glucose.[id number] 22:06:00 Test Item Value Reference Range Comments GLUCOSE RANDOM (BEAKER) (test onva=230) 311 mg/dL 70-105 If last glucose was less than 500, may do bedside glucose instead of serum glucose.KETONE, [id number] 22:03:00 Test Item Value Reference Range Comments KETONES, BLOOD (BEAKER) (test jljx=9096) 0.1 mmol/L <0.4 POCT-GLUCOSE [id number] 21:52:00 Test Item Value Reference Range Comments POC-GLUCOSE METER (BEAKER) 403 mg/dL 70-110 Notified RN or MD Patient (test skrp=7502) refused repeat test/TESTED AT [address] [address] BASIC METABOLIC [id number] 19:28:00 Test Item Value Reference Range Comments SODIUM (BEAKER) (test 129 meq/L 136-145 opsu=115) POTASSIUM (BEAKER) (test 4.6 meq/L 3.5-5.1 yuok=650) CHLORIDE (BEAKER) (test 93 meq/L 98-107 jmil=193) CO2 (BEAKER) (test 24 meq/L 22-29 ptpn=769) BLOOD UREA NITROGEN 17 mg/dL 7-21 (BEAKER) (test zvzy=658) CREATININE (BEAKER) (test 1.39 mg/dL 0.57-1.25 bvoj=392) GLUCOSE RANDOM (BEAKER) 822 mg/dL 70-105 (test olwo=792) CALCIUM (BEAKER) (test 8.6 mg/dL 8.4-10.2 bebi=440) EGFR (BEAKER) (test 56 mL/min/1.73 sq m ESTIMATED GFR IS NOT atql=3231) ACCURATE CREATININE CLEARANCE IN PREDICTING GLOMERULAR FILTRATION RATE. ESTIMATED GFR IS NOT APPLICABLE FOR DIALYSIS PATIENTS. POCT-GLUCOSE [id number] 17:51:00 Test Item Value Reference Range Comments POC-GLUCOSE METER (BEAKER) > mg/dL 70-110 OUTSIDE MEASURING RANGETESTED AT (test cokp=3646) [place] [id number] [facility] [address] POCT-GLUCOSE [id number] 12:17:00 Test Item Value Reference Range Comments POC-GLUCOSE METER (BEAKER) > mg/dL 70-110 OUTSIDE MEASURING RANGENotified RN (test kklg=8876) or MD Patient refused repeat test/TESTED AT [place] [id number] URINALYSIS W/ [id number] 10:06:00 Test Item Value Reference Range Comments COLOR (BEAKER) (test pwie=447) Light Yellow CLARITY (BEAKER) (test mdet=775) Clear SPECIFIC GRAVITY UA (BEAKER) (test zpop=474) 1.018 1.001-1.035 PH UA (BEAKER) (test guys=446) 6.0 5.0-8.0 PROTEIN UA (BEAKER) (test mzsw=107) 50 mg/dL Negative GLUCOSE UA (BEAKER) (test wwhj=524) >1000 mg/dL Negative KETONES UA (BEAKER) (test wwpl=206) Negative Negative BILIRUBIN UA (BEAKER) (test gbfc=070) Negative Negative BLOOD UA (BEAKER) (test knvv=463) Trace Negative NITRITE UA (BEAKER) (test pagb=298) Negative Negative LEUKOCYTE ESTERASE UA (BEAKER) (test bfva=164) Negative Negative UROBILINOGEN UA (BEAKER) (test exid=699) 0.2 mg/dL 0.2-1.0 RBC UA (BEAKER) (test uycz=787) 1 /HPF WBC UA (BEAKER) (test fqdn=967) < /HPF BACTERIA (BEAKER) (test fgfp=158) Rare SQUAMOUS EPITHELIAL (BEAKER) (test rtbo=780) 2 /HPF SOURCE(BEAKER) (test tijj=6319) POCT-GLUCOSE [id number] 07:31:00 Test Item Value Reference Range Comments POC-GLUCOSE METER (BEAKER) 365 mg/dL 70-110 TESTED AT [address] (test pina=6249) [place] [id number] RAD, CHEST, 1 VIEW, NON [id number] 00:14:00Reason for exam:->SHORTNESS OF BREATHReason for exam:->COUGHIs [...] acute infection should be excluded clinically. Signed: Sydney Crump MDReport Verified Date/Time: 2017 00:14:15 Reading Location: [address] Reading Room TROPONIN [id number] 00:11:00 Test Item Value Reference Range Comments TROPONIN I (BEAKER) (test absq=807) < ng/mL 0.00-0.03 Troponin I (TnI) levels [...] failure, acidosis, acute neurological disease, and persistent tachyarrhythmia.[id number] 00:04:00 Test Item Value Reference Range Comments MAGNESIUM (BEAKER) (test tfiq=982) 1.5 mg/dL 1.6-2.6 BASIC METABOLIC [id number] 00:04:00 Test Item Value Reference Range Comments SODIUM (BEAKER) (test 138 meq/L 136-145 xbmn=035) POTASSIUM (BEAKER) (test 4.1 meq/L 3.5-5.1 vrlc=866) CHLORIDE (BEAKER) (test 102 meq/L 98-107 nabj=704) CO2 (BEAKER) (test 28 meq/L 22-29 fsry=546) BLOOD UREA NITROGEN 9 mg/dL 7-21 (BEAKER) (test zpfe=594) CREATININE (BEAKER) (test 0.65 mg/dL 0.57-1.25 dytn=052) GLUCOSE RANDOM (BEAKER) 133 mg/dL 70-105 (test ecde=181) CALCIUM (BEAKER) (test 8.7 mg/dL 8.4-10.2 elov=986) EGFR (BEAKER) (test 135 mL/min/1.73 sq m ESTIMATED GFR IS NOT afrb=9039) ACCURATE CREATININE CLEARANCE IN PREDICTING GLOMERULAR FILTRATION RATE. ESTIMATED GFR IS NOT APPLICABLE FOR DIALYSIS PATIENTS. CBC W/PLT COUNT & AUTO [id number] 23:42:00 Test Item Value Reference Range Comments WHITE BLOOD CELL COUNT (BEAKER) (test nlrf=351) 12.0 K/ L 3.5-10.5 RED BLOOD CELL COUNT (BEAKER) (test jutk=240) 4.14 M/ L 3.93-5.22 HEMOGLOBIN (BEAKER) (test hesi=987) 10.9 GM/DL 11.2-15.7 HEMATOCRIT (BEAKER) (test dzvg=300) 35.8 % 34.1-44.9 MEAN CORPUSCULAR VOLUME (BEAKER) (test lcxp=630) 86.5 fL 79.4-94.8 MEAN CORPUSCULAR HEMOGLOBIN (BEAKER) (test 26.3 pg 25.6-32.2 cmbd=677) MEAN CORPUSCULAR HEMOGLOBIN CONC (BEAKER) (test 30.4 GM/DL 32.2-35.5 ftfm=455) RED CELL DISTRIBUTION WIDTH (BEAKER) (test 17.1 % 11.7-14.4 ncic=070) PLATELET COUNT (BEAKER) (test dcsx=822) 366 K/CU MM 150-450 MEAN PLATELET VOLUME (BEAKER) (test eero=069) 11.0 fL 9.4-12.3 NUCLEATED RED BLOOD CELLS (BEAKER) (test 0 /100 WBC 0-0 zwxh=243) NEUTROPHILS RELATIVE PERCENT (BEAKER) (test 65 % dyvh=011) LYMPHOCYTES RELATIVE PERCENT (BEAKER) (test 22 % mcca=276) MONOCYTES RELATIVE PERCENT (BEAKER) (test 8 % nlqq=734) EOSINOPHILS RELATIVE PERCENT (BEAKER) (test 5 % rnpc=400) BASOPHILS RELATIVE PERCENT (BEAKER) (test 0 % rmfo=498) NEUTROPHILS ABSOLUTE COUNT (BEAKER) (test 7.82 K/ L 1.56-6.13 auux=658) LYMPHOCYTES ABSOLUTE COUNT (BEAKER) (test 2.61 K/ L 1.18-3.74 fpmc=955) MONOCYTES ABSOLUTE COUNT (BEAKER) (test 0.99 K/ L 0.24-0.36 ianb=938) EOSINOPHILS ABSOLUTE COUNT (BEAKER) (test 0.54 K/ L 0.04-0.36 geue=961) BASOPHILS ABSOLUTE COUNT (BEAKER) (test 0.04 K/ L 0.01-0.08 embr=016) IMMATURE GRANULOCYTES-RELATIVE PERCENT (BEAKER) 0 % 0-1 (test bepb=2869) POCT-LACTIC ACID, [id number] 23:36:00 Test Item Value Reference Range Comments POC-LACTIC ACID, VENOUS 1.0 mmol/L 0.9-1.7 TESTED AT [facility] [address] [place] [address] (BEAKER) (test ksws=4811) [facility] [address] FUNGUS CULTURE + [id number] 11:24:00 Test Item Value Reference Range Comments CULTURE (BEAKER) (test txnk=4301) 2+ Clau glabrata FUNGUS SMEAR (BEAKER) (test No fungi seen dddt=2744) Previously reported organism is no longer reported. Please contact the Microbiology Department for additional information.CF RESPIRATORY [id number] 17:12:00 Test Item Value Reference Range Comments CULTURE (BEAKER) (test PSEUDOMONAS <1+ Pseudomonas ejct=3794) AERUGINOSA aeruginosa (MUCOID-PHENOTYPE) (Mucoid-phenotype) Amikacin (test code=1) Susceptible 0-16 , Resistant <0 or >16 Aztreonam (test Susceptible 0-8 , code=32) Resistant <0 or >8 Cefepime (test code=51) Susceptible 0-8 , Resistant <0 or >8 Ceftazidime (test Susceptible 0-8 , code=27) Resistant <0 or >8 Ciprofloxacin (test Susceptible 0-1 , code=7) Resistant <0 or >1 Doripenem (test Susceptible 0-2 , gdmi=496) Resistant <0 or >2 Gentamicin (test Susceptible [...] >4 CULTURE (BEAKER) (test PSEUDOMONAS <1+ Pseudomonas ybvx=6110) AERUGINOSA aeruginosaof a second type Amikacin (test code=1) Susceptible 0-16 , Resistant <0 or >16 Aztreonam (test Susceptible 0-8 , code=32) Resistant <0 or >8 Cefepime (test code=51) Susceptible 0-8 , Resistant <0 or >8 Ceftazidime (test Susceptible 0-8 , code=27) Resistant <0 or >8 Ciprofloxacin (test Susceptible 0-1 , code=7) Resistant <0 or >1 Doripenem (test Susceptible 0-2 , xhxs=512) Resistant <0 or >2 Gentamicin (test Susceptible [...] >4 CULTURE (BEAKER) (test PSEUDOMONAS <1+ Pseudomonas dcai=9261) AERUGINOSA aeruginosaof a third type Amikacin (test code=1) Susceptible 0-16 , Resistant <0 or >16 Aztreonam (test Susceptible 0-8 , code=32) Resistant <0 or >8 Cefepime (test code=51) Susceptible 0-8 , Resistant <0 or >8 Ceftazidime (test Susceptible 0-8 , code=27) Resistant <0 or >8 Ciprofloxacin (test Susceptible 0-1 , code=7) Resistant <0 or >1 Doripenem (test Susceptible 0-2 , avbx=448) Resistant <0 or >2 Gentamicin (test Susceptible [...] or >4 1+ Normal respiratory derick presentSPIN/CONCENTRATION [id number] 06:32:00 Test Item Value Reference Range Comments CONCENTRATION CHARGED (BEAKER) (test obvk=0515) Done POCT-GLUCOSE [id number] 17:10:00 Test Item Value Reference Range Comments POC-GLUCOSE METER (BEAKER) 338 mg/dL 70-110 TESTED AT [address] (test mksl=7136) [facility] [address] POCT-GLUCOSE [id number] 12:26:00 Test Item Value Reference Range Comments POC-GLUCOSE METER (BEAKER) 127 mg/dL 70-110 TESTED AT [address] (test gbtw=9612) [facility] [address] POCT-GLUCOSE [id number] 08:06:00 Test Item Value Reference Range Comments POC-GLUCOSE METER (BEAKER) 174 mg/dL 70-110 TESTED AT [address] (test anfk=9699) [facility] [address] POCT-GLUCOSE [id number] 21:28:00 Test Item Value Reference Range Comments POC-GLUCOSE METER (BEAKER) 205 mg/dL 70-110 TESTED AT [address] (test pysl=5543) [place] [id number] POCT-GLUCOSE [id number] 17:44:00 Test Item Value Reference Range Comments POC-GLUCOSE METER (BEAKER) 229 mg/dL 70-110 TESTED AT [facility] [address] [facility] (test onve=5353) [facility] [address] POCT-GLUCOSE [id number] 12:08:00 Test Item Value Reference Range Comments POC-GLUCOSE METER (BEAKER) 131 mg/dL 70-110 TESTED AT [facility] [address] [facility] (test fdmt=0160) [facility] [address] RAD, ABDOMEN/KUB, 1 VIEW [id number] 10:55:00Reason for exam:->evaluate stool burden, abdominal distention, cf patientShould this be performedat the bedside?->NoFINAL REPORT Two abdomen images compared to February 25, 2018 Discussion: Nonspecific bowel gas pattern with moderate retained feces. No evidence of bowel obstruction. No evidence of free intraperitoneal air. Regional bones are unremarkable. Signed: Flip Choe Verified Date/Time: 04/19/2018 10:55:54 Reading Location: [facility] Radiology Reading Room 10 :55 AMU/S, ABDOMINAL, [id number] 08:54:00Abdomen limited area? Add comment if clarification [...] Castellanos Verified Date/Time: 04/19/2018 08:54:16 Reading Location: [facility] [id number] Ultrasound Reading Room 08: 54 AMPOCT-GLUCOSE [id number] 08:18:00 Test Item Value Reference Range Comments POC-GLUCOSE METER (BEAKER) 105 mg/dL 70-110 TESTED AT [address] (test spmy=0469) [place] [address] POCT-GLUCOSE [id number] 08:06:00 Test Item Value Reference Range Comments POC-GLUCOSE METER (BEAKER) 74 mg/dL 70-110 TESTED AT [address] (test ogzf=2276) [place] [address] BASIC METABOLIC [id number] 06:31:00 Test Item Value Reference Range Comments SODIUM (BEAKER) (test 138 meq/L 136-145 mftv=058) POTASSIUM (BEAKER) (test 5.0 meq/L 3.5-5.1 fjkl=279) CHLORIDE (BEAKER) (test 97 meq/L 98-107 rsdy=092) CO2 (BEAKER) (test 33 meq/L 22-29 pjoi=224) BLOOD UREA NITROGEN 25 mg/dL 7-21 (BEAKER) (test ewib=416) CREATININE (BEAKER) (test 0.82 mg/dL 0.57-1.25 pylr=259) GLUCOSE RANDOM (BEAKER) 107 mg/dL 70-105 (test cazc=524) CALCIUM (BEAKER) (test 8.1 mg/dL 8.4-10.2 ohzs=039) EGFR (BEAKER) (test 103 mL/min/1.73 sq m ESTIMATED GFR IS NOT nfch=9758) ACCURATE CREATININE CLEARANCE IN PREDICTING GLOMERULAR FILTRATION RATE. ESTIMATED GFR IS NOT APPLICABLE FOR DIALYSIS PATIENTS. POCT-GLUCOSE [id number] 21:28:00 Test Item Value Reference Range Comments POC-GLUCOSE METER (BEAKER) 63 mg/dL 70-110 Notified JORDON STAPLETON/TESTED AT [facility] (test smob=0949) [address] [place] [address] POCT-GLUCOSE [id number] 17:32:00 Test Item Value Reference Range Comments POC-GLUCOSE METER (BEAKER) 217 mg/dL 70-110 TESTED AT [address] (test ycyv=9970) [place] [id number] POCT-GLUCOSE [id number] 16:55:00 Test Item Value Reference Range Comments POC-GLUCOSE METER (BEAKER) 75 mg/dL 70-110 TESTED AT [address] (test hotq=4751) [place] [address] BASIC METABOLIC [id number] 12:35:00 Test Item Value Reference Range Comments SODIUM (BEAKER) (test 141 meq/L 136-145 qdix=551) POTASSIUM (BEAKER) (test 4.6 meq/L 3.5-5.1 rxhi=930) CHLORIDE (BEAKER) (test 102 meq/L 98-107 ewxk=864) CO2 (BEAKER) (test 33 meq/L 22-29 aatg=416) BLOOD UREA NITROGEN 20 mg/dL 7-21 (BEAKER) (test qhbs=558) CREATININE (BEAKER) (test 0.74 mg/dL 0.57-1.25 ifez=616) GLUCOSE RANDOM (BEAKER) 44 mg/dL 70-105 (test iiqu=272) CALCIUM (BEAKER) (test 8.1 mg/dL 8.4-10.2 aodj=116) EGFR (BEAKER) (test 116 mL/min/1.73 sq m ESTIMATED GFR IS NOT sriw=1970) ACCURATE CREATININE CLEARANCE IN PREDICTING GLOMERULAR FILTRATION RATE. ESTIMATED GFR IS NOT APPLICABLE FOR DIALYSIS PATIENTS. POCT-GLUCOSE [id number] 12:06:00 Test Item Value Reference Range Comments POC-GLUCOSE METER (BEAKER) 43 mg/dL 70-110 Notified JORDON STAPLETON/TESTED AT [facility] (test njig=5330) [address] [place] [address] [id number] 12:01:00 Test Item Value Reference Range Comments MAGNESIUM (BEAKER) (test upjf=886) 1.8 mg/dL 1.6-2.6 CBC W/PLT COUNT & AUTO [id number] 11:18:00 Test Item Value Reference Range Comments WHITE BLOOD CELL COUNT (BEAKER) (test uggd=942) 11.8 K/ L 3.5-10.5 RED BLOOD CELL COUNT (BEAKER) (test fnmg=676) 3.37 M/ L 3.93-5.22 HEMOGLOBIN (BEAKER) (test ztvy=020) 8.8 GM/DL 11.2-15.7 HEMATOCRIT (BEAKER) (test niau=735) 29.5 % 34.1-44.9 MEAN CORPUSCULAR VOLUME (BEAKER) (test xwxa=562) 87.5 fL 79.4-94.8 MEAN CORPUSCULAR HEMOGLOBIN (BEAKER) (test 26.1 pg 25.6-32.2 pybn=746) MEAN CORPUSCULAR HEMOGLOBIN CONC (BEAKER) (test 29.8 GM/DL 32.2-35.5 ttax=664) RED CELL DISTRIBUTION WIDTH (BEAKER) (test 16.0 % 11.7-14.4 oyjx=718) PLATELET COUNT (BEAKER) (test qmji=017) 294 K/CU MM 150-450 MEAN PLATELET VOLUME (BEAKER) (test soeb=860) 10.7 fL 9.4-12.3 NUCLEATED RED BLOOD CELLS (BEAKER) (test 0 /100 WBC 0-0 pvel=737) NEUTROPHILS RELATIVE PERCENT (BEAKER) (test 76 % mskr=945) LYMPHOCYTES RELATIVE PERCENT (BEAKER) (test 12 % tpsc=708) MONOCYTES RELATIVE PERCENT (BEAKER) (test 7 % syvl=493) EOSINOPHILS RELATIVE PERCENT (BEAKER) (test 4 % uedd=351) BASOPHILS RELATIVE PERCENT (BEAKER) (test 0 % uhkv=851) NEUTROPHILS ABSOLUTE COUNT (BEAKER) (test 8.92 K/ L 1.56-6.13 kmqd=488) LYMPHOCYTES ABSOLUTE COUNT (BEAKER) (test 1.36 K/ L 1.18-3.74 whad=836) MONOCYTES ABSOLUTE COUNT (BEAKER) (test 0.86 K/ L 0.24-0.36 ufpa=587) EOSINOPHILS ABSOLUTE COUNT (BEAKER) (test 0.49 K/ L 0.04-0.36 auga=760) BASOPHILS ABSOLUTE COUNT (BEAKER) (test 0.03 K/ L 0.01-0.08 xoyw=197) IMMATURE GRANULOCYTES-RELATIVE PERCENT (BEAKER) 1 % 0-1 (test pzal=3458) POCT-GLUCOSE [id number] 07:31:00 Test Item Value Reference Range Comments POC-GLUCOSE METER (BEAKER) 275 mg/dL 70-110 TESTED AT [address] (test laup=4002) [facility] [address] POCT-GLUCOSE [id number] 22:01:00 Test Item Value Reference Range Comments POC-GLUCOSE METER (BEAKER) 109 mg/dL 70-110 TESTED AT [address] (test akwl=3702) [facility] [address] POCT-GLUCOSE [id number] 21:11:00 Test Item Value Reference Range Comments POC-GLUCOSE METER (BEAKER) 61 mg/dL 70-110 Notified JORDON STAPLETON/TESTED AT [facility] (test bigp=0318) [address] [place] [id number] POCT-GLUCOSE [id number] 17:41:00 Test Item Value Reference Range Comments POC-GLUCOSE METER (BEAKER) 68 mg/dL 70-110 TESTED AT [address] (test wekh=5545) [facility] [address] POCT-GLUCOSE [id number] 16:51:00 Test Item Value Reference Range Comments POC-GLUCOSE METER (BEAKER) 74 mg/dL 70-110 TESTED AT [address] (test lpwk=0274) [facility] [address] URINALYSIS W/ [id number] 14:57:00 Test Item Value Reference Range Comments COLOR (BEAKER) (test eevu=876) Yellow CLARITY (BEAKER) (test fdis=113) Clear SPECIFIC GRAVITY UA (BEAKER) (test bzus=331) 1.009 1.001-1.035 PH UA (BEAKER) (test hnig=614) 7.0 5.0-8.0 PROTEIN UA (BEAKER) (test uvnt=347) 30 mg/dL Negative GLUCOSE UA (BEAKER) (test njqg=108) Negative Negative KETONES UA (BEAKER) (test kawc=901) Negative Negative BILIRUBIN UA (BEAKER) (test dsxb=792) Negative Negative BLOOD UA (BEAKER) (test xcbc=918) Negative Negative NITRITE UA (BEAKER) (test cdva=117) Negative Negative LEUKOCYTE ESTERASE UA (BEAKER) (test zecm=514) Negative Negative UROBILINOGEN UA (BEAKER) (test xxvv=479) 0.2 mg/dL 0.2-1.0 RBC UA (BEAKER) (test bfnh=587) < /HPF WBC UA (BEAKER) (test tlqv=722) 23 /HPF SQUAMOUS EPITHELIAL (BEAKER) (test jhor=945) 16 /HPF SOURCE(BEAKER) (test znol=9091) Urine, Voided [id number] 14:23:00 Test Item Value Reference Range Comments MAGNESIUM (BEAKER) (test xldx=513) 0.9 mg/dL 1.6-2.6 BASIC METABOLIC [id number] 11:55:00 Test Item Value Reference Range Comments SODIUM (BEAKER) (test 146 meq/L 136-145 Discordant SODIUM result qliu=719) Compared to previous result, Clinical correlation required. POTASSIUM (BEAKER) (test 2.3 meq/L 3.5-5.1 kgnn=732) CHLORIDE (BEAKER) (test 102 meq/L 98-107 vcvc=132) CO2 (BEAKER) (test 31 meq/L 22-29 gfmc=329) BLOOD UREA NITROGEN 19 mg/dL 7-21 (BEAKER) (test buql=371) CREATININE (BEAKER) (test 0.86 mg/dL 0.57-1.25 zhfo=957) GLUCOSE RANDOM (BEAKER) 63 mg/dL 70-105 (test zszz=750) CALCIUM (BEAKER) (test 7.8 mg/dL 8.4-10.2 stmv=851) EGFR (BEAKER) (test 97 mL/min/1.73 sq m ESTIMATED GFR IS NOT onzs=0463) ACCURATE CREATININE CLEARANCE IN PREDICTING GLOMERULAR FILTRATION RATE. ESTIMATED GFR IS NOT APPLICABLE FOR DIALYSIS PATIENTS. CBC W/PLT COUNT & AUTO [id number] 11:34:00 Test Item Value Reference Range Comments WHITE BLOOD CELL COUNT (BEAKER) (test lvys=806) 11.6 K/ L 3.5-10.5 RED BLOOD CELL COUNT (BEAKER) (test sdhu=343) 3.50 M/ L 3.93-5.22 HEMOGLOBIN (BEAKER) (test fjgv=965) 9.1 GM/DL 11.2-15.7 HEMATOCRIT (BEAKER) (test mwfb=712) 30.1 % 34.1-44.9 MEAN CORPUSCULAR VOLUME (BEAKER) (test gpvr=883) 86.0 fL 79.4-94.8 MEAN CORPUSCULAR HEMOGLOBIN (BEAKER) (test 26.0 pg 25.6-32.2 vvqe=853) MEAN CORPUSCULAR HEMOGLOBIN CONC (BEAKER) (test 30.2 GM/DL 32.2-35.5 kqru=294) RED CELL DISTRIBUTION WIDTH (BEAKER) (test 15.7 % 11.7-14.4 vzbp=512) PLATELET COUNT (BEAKER) (test ghyk=438) 316 K/CU MM 150-450 MEAN PLATELET VOLUME (BEAKER) (test syyt=474) 10.9 fL 9.4-12.3 NUCLEATED RED BLOOD CELLS (BEAKER) (test 0 /100 WBC 0-0 jbsg=874) NEUTROPHILS RELATIVE PERCENT (BEAKER) (test 73 % sbov=759) LYMPHOCYTES RELATIVE PERCENT (BEAKER) (test 16 % fefh=756) MONOCYTES RELATIVE PERCENT (BEAKER) (test 6 % bxcf=247) EOSINOPHILS RELATIVE PERCENT (BEAKER) (test 4 % qtwn=447) BASOPHILS RELATIVE PERCENT (BEAKER) (test 0 % glbo=977) NEUTROPHILS ABSOLUTE COUNT (BEAKER) (test 8.54 K/ L 1.56-6.13 whma=086) LYMPHOCYTES ABSOLUTE COUNT (BEAKER) (test 1.81 K/ L 1.18-3.74 ptcj=604) MONOCYTES ABSOLUTE COUNT (BEAKER) (test 0.67 K/ L 0.24-0.36 mfvk=075) EOSINOPHILS ABSOLUTE COUNT (BEAKER) (test 0.46 K/ L 0.04-0.36 opga=199) BASOPHILS ABSOLUTE COUNT (BEAKER) (test 0.05 K/ L 0.01-0.08 qvwc=640) IMMATURE GRANULOCYTES-RELATIVE PERCENT (BEAKER) 1 % 0-1 (test jyca=1387) POCT-GLUCOSE [id number] 08:27:00 Test Item Value Reference Range Comments POC-GLUCOSE METER (BEAKER) 128 mg/dL 70-110 TESTED AT [address] (test mbsi=3284) [place] [id number] POCT-GLUCOSE [id number] 21:14:00 Test Item Value Reference Range Comments POC-GLUCOSE METER (BEAKER) 241 mg/dL 70-110 TESTED AT [address] (test odtz=2236) [place] [address] POCT-GLUCOSE [id number] 18:51:00 Test Item Value Reference Range Comments POC-GLUCOSE METER (BEAKER) 140 mg/dL 70-110 TESTED AT [address] (test vxzq=3481) [place] [address] POCT-GLUCOSE [id number] 18:06:00 Test Item Value Reference Range Comments POC-GLUCOSE METER (BEAKER) 31 mg/dL 70-110 TESTED AT [address] (test roov=3380) [place] [address] POCT-GLUCOSE [id number] 12:58:00 Test Item Value Reference Range Comments POC-GLUCOSE METER (BEAKER) 72 mg/dL 70-110 TESTED AT [address] (test xvdw=3433) [place] [address] POCT-GLUCOSE [id number] 08:21:00 Test Item Value Reference Range Comments POC-GLUCOSE METER (BEAKER) 162 mg/dL 70-110 TESTED AT [address] (test qwba=0544) [place] [address] [id number] 06:55:00 Test Item Value Reference Range Comments BLOOD UREA NITROGEN (BEAKER) (test jrdd=333) 15 mg/dL 7-21 [id number] 06:55:00 Test Item Value Reference Range Comments CREATININE (BEAKER) (test 0.97 mg/dL 0.57-1.25 fngg=288) EGFR (BEAKER) (test 85 mL/min/1.73 sq m ESTIMATED GFR IS NOT ovkk=9423) ACCURATE CREATININE CLEARANCE IN PREDICTING GLOMERULAR FILTRATION RATE. ESTIMATED GFR IS NOT APPLICABLE FOR DIALYSIS PATIENTS. POCT-GLUCOSE [id number] 21:28:00 Test Item Value Reference Range Comments POC-GLUCOSE METER (BEAKER) 141 mg/dL 70-110 TESTED AT [address] (test rhhf=9737) [place] [address] POCT-GLUCOSE [id number] 17:29:00 Test Item Value Reference Range Comments POC-GLUCOSE METER (BEAKER) 122 mg/dL 70-110 TESTED AT [address] (test jotg=0728) [place] [address] POCT-GLUCOSE [id number] 11:22:00 Test Item Value Reference Range Comments POC-GLUCOSE METER (BEAKER) 66 mg/dL 70-110 TESTED AT [facility] [address] [facility] (test odkl=8691) [facility] [address] POCT-GLUCOSE [id number] 11:22:00 Test Item Value Reference Range Comments POC-GLUCOSE METER (BEAKER) 224 mg/dL 70-110 TESTED AT [facility] [address] [facility] (test izya=2587) [facility] [address] COMPREHENSIVE METABOLIC [id number] 07:22:00 Test Item Value Reference Range Comments TOTAL PROTEIN (BEAKER) 6.5 gm/dL 6.0-8.3 (test txxg=234) ALBUMIN (BEAKER) (test 2.7 g/dL 3.5-5.0 hand=2607) ALKALINE PHOSPHATASE 113 U/L 40-150 (BEAKER) (test ocya=336) BILIRUBIN TOTAL (BEAKER) 0.1 mg/dL 0.2-1.2 (test cfoe=159) SODIUM (BEAKER) (test 135 meq/L 136-145 eqxr=110) POTASSIUM (BEAKER) (test 3.8 meq/L 3.5-5.1 girr=045) CHLORIDE (BEAKER) (test 104 meq/L 98-107 xucc=152) CO2 (BEAKER) (test 23 meq/L 22-29 noyp=679) BLOOD UREA NITROGEN 17 mg/dL 7-21 (BEAKER) (test mtno=484) CREATININE (BEAKER) (test 1.15 mg/dL 0.57-1.25 whey=328) GLUCOSE RANDOM (BEAKER) 239 mg/dL 70-105 (test nklt=503) CALCIUM (BEAKER) (test 8.5 mg/dL 8.4-10.2 lvlm=612) AST (SGOT) (BEAKER) (test 14 U/L 5-34 aihh=515) ALT (SGPT) (BEAKER) (test 6 U/L 6-55 rxai=825) EGFR (BEAKER) (test 70 mL/min/1.73 sq m ESTIMATED GFR IS NOT ljwl=9006) ACCURATE CREATININE CLEARANCE IN PREDICTING GLOMERULAR FILTRATION RATE. ESTIMATED GFR IS NOT APPLICABLE FOR DIALYSIS PATIENTS. CBC W/PLT COUNT & AUTO [id number] 06:59:00 Test Item Value Reference Range Comments WHITE BLOOD CELL COUNT (BEAKER) (test cblv=987) 10.6 K/ L 3.5-10.5 RED BLOOD CELL COUNT (BEAKER) (test fbwx=954) 3.57 M/ L 3.93-5.22 HEMOGLOBIN (BEAKER) (test jopl=150) 9.6 GM/DL 11.2-15.7 HEMATOCRIT (BEAKER) (test efpd=320) 31.1 % 34.1-44.9 MEAN CORPUSCULAR VOLUME (BEAKER) (test rbil=933) 87.1 fL 79.4-94.8 MEAN CORPUSCULAR HEMOGLOBIN (BEAKER) (test 26.9 pg 25.6-32.2 lfur=075) MEAN CORPUSCULAR HEMOGLOBIN CONC (BEAKER) (test 30.9 GM/DL 32.2-35.5 dtur=218) RED CELL DISTRIBUTION WIDTH (BEAKER) (test 14.9 % 11.7-14.4 auye=901) PLATELET COUNT (BEAKER) (test tigf=370) 291 K/CU MM 150-450 MEAN PLATELET VOLUME (BEAKER) (test uytm=808) 11.0 fL 9.4-12.3 NUCLEATED RED BLOOD CELLS (BEAKER) (test 0 /100 WBC 0-0 gmqh=219) NEUTROPHILS RELATIVE PERCENT (BEAKER) (test 78 % xuxj=864) LYMPHOCYTES RELATIVE PERCENT (BEAKER) (test 14 % ynrf=350) MONOCYTES RELATIVE PERCENT (BEAKER) (test 6 % cxze=835) EOSINOPHILS RELATIVE PERCENT (BEAKER) (test 1 % wwje=993) BASOPHILS RELATIVE PERCENT (BEAKER) (test 0 % raid=635) NEUTROPHILS ABSOLUTE COUNT (BEAKER) (test 8.22 K/ L 1.56-6.13 slnm=138) LYMPHOCYTES ABSOLUTE COUNT (BEAKER) (test 1.53 K/ L 1.18-3.74 dywx=030) MONOCYTES ABSOLUTE COUNT (BEAKER) (test 0.65 K/ L 0.24-0.36 qcpp=247) EOSINOPHILS ABSOLUTE COUNT (BEAKER) (test 0.07 K/ L 0.04-0.36 rgdu=917) BASOPHILS ABSOLUTE COUNT (BEAKER) (test 0.03 K/ L 0.01-0.08 ofuv=766) IMMATURE GRANULOCYTES-RELATIVE PERCENT (BEAKER) 1 % 0-1 (test gmjr=1367) POCT-GLUCOSE [id number] 23:01:00 Test Item Value Reference Range Comments POC-GLUCOSE METER (BEAKER) 411 mg/dL 70-110 Notified JORDON STAPLETON/TESTED AT [facility] (test qmhh=0489) [address] [place] [address] POCT-GLUCOSE [id number] 18:29:00 Test Item Value Reference Range Comments POC-GLUCOSE METER (BEAKER) 216 mg/dL 70-110 TESTED AT [address] (test tpyu=1828) [place] [address] POCT-GLUCOSE [id number] 12:41:00 Test Item Value Reference Range Comments POC-GLUCOSE METER (BEAKER) > mg/dL 70-110 OUTSIDE MEASURING RANGETESTED AT (test uzeu=4983) [place] [address] HEMOGLOBIN [id number] 09:11:00 Test Item Value Reference Range Comments HEMOGLOBIN A1C (BEAKER) (test nlrh=478) 13.8 % 4.3-6.1 POCT-GLUCOSE [id number] 08:12:00 Test Item Value Reference Range Comments POC-GLUCOSE METER (BEAKER) 72 mg/dL 70-110 TESTED AT [address] (test vbim=9152) [place] [address] [id number] 06:33:00 Test Item Value Reference Range Comments BLOOD UREA NITROGEN (BEAKER) (test liqe=824) 13 mg/dL 05-14 [id number] 06:33:00 Test Item Value Reference Range Comments CREATININE (BEAKER) (test 1.39 mg/dL 0.57-1.25 nueh=071) EGFR (BEAKER) (test 56 mL/min/1.73 sq m ESTIMATED GFR IS NOT nfyx=9433) ACCURATE CREATININE CLEARANCE IN PREDICTING GLOMERULAR FILTRATION RATE. ESTIMATED GFR IS NOT APPLICABLE FOR DIALYSIS PATIENTS. CBC W/PLT COUNT & AUTO [id number] 06:24:00 Test Item Value Reference Range Comments WHITE BLOOD CELL COUNT (BEAKER) (test stta=832) 10.9 K/ L 3.5-10.5 RED BLOOD CELL COUNT (BEAKER) (test ppiw=563) 3.84 M/ L 3.93-5.22 HEMOGLOBIN (BEAKER) (test pdpn=287) 10.0 GM/DL 11.2-15.7 HEMATOCRIT (BEAKER) (test vzqa=230) 32.7 % 34.1-44.9 MEAN CORPUSCULAR VOLUME (BEAKER) (test sbyc=797) 85.2 fL 79.4-94.8 MEAN CORPUSCULAR HEMOGLOBIN (BEAKER) (test 26.0 pg 25.6-32.2 gsul=188) MEAN CORPUSCULAR HEMOGLOBIN CONC (BEAKER) (test 30.6 GM/DL 32.2-35.5 glyr=266) RED CELL DISTRIBUTION WIDTH (BEAKER) (test 14.9 % 11.7-14.4 sefq=582) PLATELET COUNT (BEAKER) (test jxyh=401) 334 K/CU MM 150-450 MEAN PLATELET VOLUME (BEAKER) (test jncq=163) 11.3 fL 9.4-12.3 NUCLEATED RED BLOOD CELLS (BEAKER) (test 0 /100 WBC 0-0 nvuu=708) NEUTROPHILS RELATIVE PERCENT (BEAKER) (test 90 % pcom=210) LYMPHOCYTES RELATIVE PERCENT (BEAKER) (test 7 % tvgo=537) MONOCYTES RELATIVE PERCENT (BEAKER) (test 2 % seau=506) EOSINOPHILS RELATIVE PERCENT (BEAKER) (test 0 % tzjk=414) BASOPHILS RELATIVE PERCENT (BEAKER) (test 0 % lhyb=883) NEUTROPHILS ABSOLUTE COUNT (BEAKER) (test 9.77 K/ L 1.56-6.13 ered=908) LYMPHOCYTES ABSOLUTE COUNT (BEAKER) (test 0.79 K/ L 1.18-3.74 aipf=198) MONOCYTES ABSOLUTE COUNT (BEAKER) (test 0.25 K/ L 0.24-0.36 rnyy=758) EOSINOPHILS ABSOLUTE COUNT (BEAKER) (test 0.00 K/ L 0.04-0.36 gdrc=960) BASOPHILS ABSOLUTE COUNT (BEAKER) (test 0.01 K/ L 0.01-0.08 hssl=551) IMMATURE GRANULOCYTES-RELATIVE PERCENT (BEAKER) 1 % 0-1 (test rtdi=8248) POCT-GLUCOSE [id number] 02:09:00 Test Item Value Reference Range Comments POC-GLUCOSE METER (BEAKER) 260 mg/dL 70-110 TESTED AT [facility] [address] [facility] (test ngiz=6617) [place] [address] RAD, CHEST, 1 VIEW, NON [id number] 20:00:00Reason for exam:->CHEST PAINIs the patient ?->UnknownShould [...] for further evaluation as clinically warranted. Signed: Brennon [facility] Verified Date/Time: 2017 20:00:46 Reading Location: [address] Reading Room KETONE, [id number] 18:36:00 Test Item Value Reference Range Comments KETONES, BLOOD (BEAKER) (test kjbw=1842) 0.1 mmol/L <0.4 BASIC METABOLIC [id number] 18:18:00 Test Item Value Reference Range Comments SODIUM (BEAKER) (test 132 meq/L 136-145 lxpt=637) POTASSIUM (BEAKER) (test 4.5 meq/L 3.5-5.1 hpvu=277) CHLORIDE (BEAKER) (test 95 meq/L 98-107 zbix=828) CO2 (BEAKER) (test 22 meq/L 22-29 wtkk=170) BLOOD UREA NITROGEN 18 mg/dL 7-21 (BEAKER) (test oeko=581) CREATININE (BEAKER) (test 2.19 mg/dL 0.57-1.25 krhu=429) GLUCOSE RANDOM (BEAKER) 431 mg/dL 70-105 (test ydrm=607) CALCIUM (BEAKER) (test 9.4 mg/dL 8.4-10.2 bsth=927) EGFR (BEAKER) (test 33 mL/min/1.73 sq m ESTIMATED GFR IS NOT jjdp=7978) ACCURATE CREATININE CLEARANCE IN PREDICTING GLOMERULAR FILTRATION RATE. ESTIMATED GFR IS NOT APPLICABLE FOR DIALYSIS PATIENTS. CBC W/PLT COUNT & AUTO [id number] 18:02:00 Test Item Value Reference Range Comments WHITE BLOOD CELL COUNT (BEAKER) (test pugw=433) 13.1 K/ L 3.5-10.5 RED BLOOD CELL COUNT (BEAKER) (test bvhm=541) 4.58 M/ L 3.93-5.22 HEMOGLOBIN (BEAKER) (test foku=726) 11.9 GM/DL 11.2-15.7 HEMATOCRIT (BEAKER) (test fqjb=225) 38.9 % 34.1-44.9 MEAN CORPUSCULAR VOLUME (BEAKER) (test xgvv=563) 84.9 fL 79.4-94.8 MEAN CORPUSCULAR HEMOGLOBIN (BEAKER) (test 26.0 pg 25.6-32.2 xwto=293) MEAN CORPUSCULAR HEMOGLOBIN CONC (BEAKER) (test 30.6 GM/DL 32.2-35.5 czaq=132) RED CELL DISTRIBUTION WIDTH (BEAKER) (test 14.7 % 11.7-14.4 aylt=129) PLATELET COUNT (BEAKER) (test hprc=919) 385 K/CU MM 150-450 MEAN PLATELET VOLUME (BEAKER) (test cuug=107) 11.0 fL 9.4-12.3 NUCLEATED RED BLOOD CELLS (BEAKER) (test 0 /100 WBC 0-0 mthu=770) NEUTROPHILS RELATIVE PERCENT (BEAKER) (test 95 % giqi=998) LYMPHOCYTES RELATIVE PERCENT (BEAKER) (test 4 % emix=822) MONOCYTES RELATIVE PERCENT (BEAKER) (test 1 % syae=784) EOSINOPHILS RELATIVE PERCENT (BEAKER) (test 0 % evur=485) BASOPHILS RELATIVE PERCENT (BEAKER) (test 0 % secx=286) NEUTROPHILS ABSOLUTE COUNT (BEAKER) (test 12.46 K/ L 1.56-6.13 vxus=872) LYMPHOCYTES ABSOLUTE COUNT (BEAKER) (test 0.53 K/ L 1.18-3.74 gdbb=390) MONOCYTES ABSOLUTE COUNT (BEAKER) (test 0.08 K/ L 0.24-0.36 anix=489) EOSINOPHILS ABSOLUTE COUNT (BEAKER) (test 0.00 K/ L 0.04-0.36 kbiv=447) BASOPHILS ABSOLUTE COUNT (BEAKER) (test 0.01 K/ L 0.01-0.08 jpxj=384) IMMATURE GRANULOCYTES-RELATIVE PERCENT (BEAKER) 0 % 0-1 (test aivm=3444) POCT-GLUCOSE [id number] 16:57:00 Test Item Value Reference Range Comments POC-GLUCOSE METER (BEAKER) 117 mg/dL 70-110 TESTED AT [address] (test dwih=4410) [place] [address] POCT-GLUCOSE [id number] 16:56:00 Test Item Value Reference Range Comments POC-GLUCOSE METER (BEAKER) 62 mg/dL 70-110 Notified RN or MD Patient (test ectj=5340) refused repeat test/TESTED AT [place] [address] POCT-GLUCOSE [id number] 12:23:00 Test Item Value Reference Range Comments POC-GLUCOSE METER (BEAKER) 81 mg/dL 70-110 TESTED AT [address] (test cfxp=3514) [place] [address] POCT-GLUCOSE [id number] 09:36:00 Test Item Value Reference Range Comments POC-GLUCOSE METER (BEAKER) 239 mg/dL 70-110 TESTED AT [address] (test wbcq=8967) [place] [address] BUN AND [id number] 07:03:00 Test Item Value Reference Range Comments BLOOD UREA NITROGEN 19 mg/dL 7-21 (BEAKER) (test yybr=206) CREATININE (BEAKER) (test 0.71 mg/dL 0.57-1.25 ugsy=299) EGFR (BEAKER) (test 122 mL/min/1.73 sq m ESTIMATED GFR IS NOT pkrk=9460) ACCURATE CREATININE CLEARANCE IN PREDICTING GLOMERULAR FILTRATION RATE. ESTIMATED GFR IS NOT APPLICABLE FOR DIALYSIS PATIENTS. POCT-GLUCOSE [id number] 17:46:00 Test Item Value Reference Range Comments POC-GLUCOSE METER (BEAKER) 147 mg/dL 70-110 TESTED AT [address] (test cokp=1115) [place] [address] POCT-GLUCOSE [id number] 13:26:00 Test Item Value Reference Range Comments POC-GLUCOSE METER (BEAKER) 105 mg/dL 70-110 TESTED AT [place] [id number] [facility] (test ndyp=4855) [place] [address] POCT-GLUCOSE [id number] 07:56:00 Test Item Value Reference Range Comments POC-GLUCOSE METER (BEAKER) 207 mg/dL 70-110 TESTED AT [address] (test txhp=3291) [place] [id number] CBC W/PLT COUNT & AUTO [id number] 06:59:00 Test Item Value Reference Range Comments WHITE BLOOD CELL COUNT (BEAKER) (test cvwy=472) 8.4 K/ L 3.5-10.5 RED BLOOD CELL COUNT (BEAKER) (test bsli=263) 3.67 M/ L 3.93-5.22 HEMOGLOBIN (BEAKER) (test sjyn=611) 9.7 GM/DL 11.2-15.7 HEMATOCRIT (BEAKER) (test jvvx=977) 32.9 % 34.1-44.9 MEAN CORPUSCULAR VOLUME (BEAKER) (test sark=463) 89.6 fL 79.4-94.8 MEAN CORPUSCULAR HEMOGLOBIN (BEAKER) (test 26.4 pg 25.6-32.2 pxwe=523) MEAN CORPUSCULAR HEMOGLOBIN CONC (BEAKER) (test 29.5 GM/DL 32.2-35.5 mhbw=474) RED CELL DISTRIBUTION WIDTH (BEAKER) (test 19.4 % 11.7-14.4 qrju=306) PLATELET COUNT (BEAKER) (test hqwl=858) 410 K/CU MM 150-450 MEAN PLATELET VOLUME (BEAKER) (test vuws=636) 9.7 fL 9.4-12.3 NUCLEATED RED BLOOD CELLS (BEAKER) (test 0 /100 WBC 0-0 wrht=823) NEUTROPHILS RELATIVE PERCENT (BEAKER) (test 53 % hqkx=232) LYMPHOCYTES RELATIVE PERCENT (BEAKER) (test 27 % ofze=476) MONOCYTES RELATIVE PERCENT (BEAKER) (test 10 % vwcm=916) EOSINOPHILS RELATIVE PERCENT (BEAKER) (test 10 % uzwd=878) BASOPHILS RELATIVE PERCENT (BEAKER) (test 1 % mxpd=178) NEUTROPHILS ABSOLUTE COUNT (BEAKER) (test 4.48 K/ L 1.56-6.13 ntqf=214) LYMPHOCYTES ABSOLUTE COUNT (BEAKER) (test 2.27 K/ L 1.18-3.74 buzu=654) MONOCYTES ABSOLUTE COUNT (BEAKER) (test 0.80 K/ L 0.24-0.36 pytm=761) EOSINOPHILS ABSOLUTE COUNT (BEAKER) (test 0.81 K/ L 0.04-0.36 lwch=383) BASOPHILS ABSOLUTE COUNT (BEAKER) (test 0.04 K/ L 0.01-0.08 dhvi=961) IMMATURE GRANULOCYTES-RELATIVE PERCENT (BEAKER) 1 % 0-1 (test titq=5645) BUN AND [id number] 06:42:00 Test Item Value Reference Range Comments BLOOD UREA NITROGEN 16 mg/dL 7-21 (BEAKER) (test ezez=113) CREATININE (BEAKER) (test 0.67 mg/dL 0.57-1.25 xhop=514) EGFR (BEAKER) (test 130 mL/min/1.73 sq m ESTIMATED GFR IS NOT molk=3218) ACCURATE CREATININE CLEARANCE IN PREDICTING GLOMERULAR FILTRATION RATE. ESTIMATED GFR IS NOT APPLICABLE FOR DIALYSIS PATIENTS. POCT-GLUCOSE [id number] 21:05:00 Test Item Value Reference Range Comments POC-GLUCOSE METER (BEAKER) 195 mg/dL 70-110 TESTED AT [address] (test cmuz=4201) [place] [address] POCT-GLUCOSE [id number] 18:55:00 Test Item Value Reference Range Comments POC-GLUCOSE METER (BEAKER) 344 mg/dL 70-110 TESTED AT [address] (test bain=0305) [place] [address] POCT-GLUCOSE [id number] 12:20:00 Test Item Value Reference Range Comments POC-GLUCOSE METER (BEAKER) 166 mg/dL 70-110 TESTED AT [address] (test pqek=6724) [place] [address] POCT-GLUCOSE [id number] 11:34:00 Test Item Value Reference Range Comments POC-GLUCOSE METER (BEAKER) 68 mg/dL 70-110 Notified JORDON STAPLETON/TESTED AT [facility] (test rvpd=9244) [address] [place] [address] BUN AND [id number] 10:24:00 Test Item Value Reference Range Comments BLOOD UREA NITROGEN 15 mg/dL 7-21 (BEAKER) (test gmjj=210) CREATININE (BEAKER) (test 0.64 mg/dL 0.57-1.25 shwq=059) EGFR (BEAKER) (test 137 mL/min/1.73 sq m ESTIMATED GFR IS NOT asar=6277) ACCURATE CREATININE CLEARANCE IN PREDICTING GLOMERULAR FILTRATION RATE. ESTIMATED GFR IS NOT APPLICABLE FOR DIALYSIS PATIENTS. POCT-GLUCOSE [id number] 07:58:00 Test Item Value Reference Range Comments POC-GLUCOSE METER (BEAKER) 218 mg/dL 70-110 TESTED AT [address] (test heeg=2925) [place] [address] POCT-GLUCOSE [id number] 22:10:00 Test Item Value Reference Range Comments POC-GLUCOSE METER (BEAKER) 140 mg/dL 70-110 TESTED AT [address] (test qhto=6049) [place] [address] POCT-GLUCOSE [id number] 20:51:00 Test Item Value Reference Range Comments POC-GLUCOSE METER (BEAKER) 182 mg/dL 70-110 TESTED AT [address] (test izbe=8442) [place] [address] POCT-GLUCOSE [id number] 12:49:00 Test Item Value Reference Range Comments POC-GLUCOSE METER (BEAKER) 81 mg/dL 70-110 TESTED AT [address] (test keza=2318) [place] [address] POCT-GLUCOSE [id number] 08:20:00 Test Item Value Reference Range Comments POC-GLUCOSE METER (BEAKER) 362 mg/dL 70-110 Notified RN or MD Patient (test ksdl=7003) refused repeat test/TESTED AT [place] [address] BUN AND [id number] 06:16:00 Test Item Value Reference Range Comments BLOOD UREA NITROGEN 16 mg/dL 7-21 (BEAKER) (test emwz=828) CREATININE (BEAKER) (test 0.76 mg/dL 0.57-1.25 dkds=569) EGFR (BEAKER) (test 112 mL/min/1.73 sq m ESTIMATED GFR IS NOT gcsh=4311) ACCURATE CREATININE CLEARANCE IN PREDICTING GLOMERULAR FILTRATION RATE. ESTIMATED GFR IS NOT APPLICABLE FOR DIALYSIS PATIENTS. CBC W/PLT COUNT & AUTO [id number] 06:13:00 Test Item Value Reference Range Comments WHITE BLOOD CELL COUNT (BEAKER) (test zzpg=138) 11.6 K/ L 3.5-10.5 RED BLOOD CELL COUNT (BEAKER) (test metc=322) 3.59 M/ L 3.93-5.22 HEMOGLOBIN (BEAKER) (test gpan=437) 9.5 GM/DL 11.2-15.7 HEMATOCRIT (BEAKER) (test qgux=259) 32.5 % 34.1-44.9 MEAN CORPUSCULAR VOLUME (BEAKER) (test abvy=696) 90.5 fL 79.4-94.8 MEAN CORPUSCULAR HEMOGLOBIN (BEAKER) (test 26.5 pg 25.6-32.2 ynno=164) MEAN CORPUSCULAR HEMOGLOBIN CONC (BEAKER) (test 29.2 GM/DL 32.2-35.5 lqxo=422) RED CELL DISTRIBUTION WIDTH (BEAKER) (test 19.6 % 11.7-14.4 ijlq=638) PLATELET COUNT (BEAKER) (test npbi=556) 500 K/CU MM 150-450 MEAN PLATELET VOLUME (BEAKER) (test zlcn=424) 10.0 fL 9.4-12.3 NUCLEATED RED BLOOD CELLS (BEAKER) (test 0 /100 WBC 0-0 yrar=619) NEUTROPHILS RELATIVE PERCENT (BEAKER) (test 66 % vlho=469) LYMPHOCYTES RELATIVE PERCENT (BEAKER) (test 21 % umkx=758) MONOCYTES RELATIVE PERCENT (BEAKER) (test 8 % tvkt=168) EOSINOPHILS RELATIVE PERCENT (BEAKER) (test 6 % weiu=320) BASOPHILS RELATIVE PERCENT (BEAKER) (test 0 % kkkr=409) NEUTROPHILS ABSOLUTE COUNT (BEAKER) (test 7.67 K/ L 1.56-6.13 rola=616) LYMPHOCYTES ABSOLUTE COUNT (BEAKER) (test 2.39 K/ L 1.18-3.74 tdyg=844) MONOCYTES ABSOLUTE COUNT (BEAKER) (test 0.87 K/ L 0.24-0.36 dcsl=802) EOSINOPHILS ABSOLUTE COUNT (BEAKER) (test 0.65 K/ L 0.04-0.36 llww=082) BASOPHILS ABSOLUTE COUNT (BEAKER) (test 0.02 K/ L 0.01-0.08 mdcp=224) IMMATURE GRANULOCYTES-RELATIVE PERCENT (BEAKER) 0 % 0-1 (test mswu=3943) POCT-GLUCOSE [id number] 21:45:00 Test Item Value Reference Range Comments POC-GLUCOSE METER (BEAKER) 226 mg/dL 70-110 TESTED AT [address] (test iuya=8777) [facility] [id number] POCT-GLUCOSE [id number] 17:21:00 Test Item Value Reference Range Comments POC-GLUCOSE METER (BEAKER) 245 mg/dL 70-110 TESTED AT [address] (test aftz=1713) [facility] [address] POCT-GLUCOSE [id number] 12:59:00 Test Item Value Reference Range Comments POC-GLUCOSE METER (BEAKER) 76 mg/dL 70-110 TESTED AT [address] (test aplp=4475) [facility] [address] POCT-GLUCOSE [id number] 08:21:00 Test Item Value Reference Range Comments POC-GLUCOSE METER (BEAKER) 88 mg/dL 70-110 TESTED AT [address] (test nqee=2564) [facility] [address] BUN AND [id number] 05:56:00 Test Item Value Reference Range Comments BLOOD UREA NITROGEN 9 mg/dL 7-21 (BEAKER) (test duau=858) CREATININE (BEAKER) (test 0.74 mg/dL 0.57-1.25 wfpj=934) EGFR (BEAKER) (test 116 mL/min/1.73 sq m ESTIMATED GFR IS NOT xnkj=8906) ACCURATE CREATININE CLEARANCE IN PREDICTING GLOMERULAR FILTRATION RATE. ESTIMATED GFR IS NOT APPLICABLE FOR DIALYSIS PATIENTS. CBC W/PLT COUNT & AUTO [id number] 05:30:00 Test Item Value Reference Range Comments WHITE BLOOD CELL COUNT (BEAKER) (test hshn=468) 14.2 K/ L 3.5-10.5 RED BLOOD CELL COUNT (BEAKER) (test jspa=856) 3.82 M/ L 3.93-5.22 HEMOGLOBIN (BEAKER) (test lsyz=818) 10.2 GM/DL 11.2-15.7 HEMATOCRIT (BEAKER) (test ozne=285) 34.0 % 34.1-44.9 MEAN CORPUSCULAR VOLUME (BEAKER) (test wufw=661) 89.0 fL 79.4-94.8 MEAN CORPUSCULAR HEMOGLOBIN (BEAKER) (test 26.7 pg 25.6-32.2 gumc=244) MEAN CORPUSCULAR HEMOGLOBIN CONC (BEAKER) (test 30.0 GM/DL 32.2-35.5 tulh=570) RED CELL DISTRIBUTION WIDTH (BEAKER) (test 19.7 % 11.7-14.4 hlxd=317) PLATELET COUNT (BEAKER) (test bmuf=725) 546 K/CU MM 150-450 MEAN PLATELET VOLUME (BEAKER) (test djix=972) 9.9 fL 9.4-12.3 NUCLEATED RED BLOOD CELLS (BEAKER) (test 0 /100 WBC 0-0 cupa=417) NEUTROPHILS RELATIVE PERCENT (BEAKER) (test 68 % ctag=994) LYMPHOCYTES RELATIVE PERCENT (BEAKER) (test 19 % tjof=013) MONOCYTES RELATIVE PERCENT (BEAKER) (test 7 % afph=832) EOSINOPHILS RELATIVE PERCENT (BEAKER) (test 5 % kzrb=744) BASOPHILS RELATIVE PERCENT (BEAKER) (test 0 % tklr=227) NEUTROPHILS ABSOLUTE COUNT (BEAKER) (test 9.65 K/ L 1.56-6.13 gvqm=607) LYMPHOCYTES ABSOLUTE COUNT (BEAKER) (test 2.69 K/ L 1.18-3.74 lsbd=270) MONOCYTES ABSOLUTE COUNT (BEAKER) (test 1.01 K/ L 0.24-0.36 tjln=694) EOSINOPHILS ABSOLUTE COUNT (BEAKER) (test 0.72 K/ L 0.04-0.36 qfbe=399) BASOPHILS ABSOLUTE COUNT (BEAKER) (test 0.06 K/ L 0.01-0.08 topv=363) IMMATURE GRANULOCYTES-RELATIVE PERCENT (BEAKER) 1 % 0-1 (test jbab=2984) POCT-GLUCOSE [id number] 21:20:00 Test Item Value Reference Range Comments POC-GLUCOSE METER (BEAKER) 211 mg/dL 70-110 TESTED AT [facility] [address] [facility] (test zupc=8590) [facility] [address] POCT-GLUCOSE [id number] 17:25:00 Test Item Value Reference Range Comments POC-GLUCOSE METER (BEAKER) 152 mg/dL 70-110 TESTED AT [facility] [address] [facility] (test nrst=1227) [facility] [address] POCT-GLUCOSE [id number] 13:32:00 Test Item Value Reference Range Comments POC-GLUCOSE METER (BEAKER) 81 mg/dL 70-110 TESTED AT [facility] [address] [facility] (test ynpv=0953) [facility] [address] BUN AND [id number] 10:16:00 Test Item Value Reference Range Comments BLOOD UREA NITROGEN 17 mg/dL 7-21 (BEAKER) (test arkj=069) CREATININE (BEAKER) (test 0.72 mg/dL 0.57-1.25 ebmc=959) EGFR (BEAKER) (test 120 mL/min/1.73 sq m ESTIMATED GFR IS NOT eeem=0402) ACCURATE CREATININE CLEARANCE IN PREDICTING GLOMERULAR FILTRATION RATE. ESTIMATED GFR IS NOT APPLICABLE FOR DIALYSIS PATIENTS. CBC W/PLT COUNT & AUTO [id number] 09:23:00 Test Item Value Reference Range Comments WHITE BLOOD CELL COUNT (BEAKER) (test mfry=814) 11.7 K/ L 3.5-10.5 RED BLOOD CELL COUNT (BEAKER) (test qnuq=682) 3.70 M/ L 3.93-5.22 HEMOGLOBIN (BEAKER) (test frvw=139) 9.7 GM/DL 11.2-15.7 HEMATOCRIT (BEAKER) (test jpgq=540) 32.7 % 34.1-44.9 MEAN CORPUSCULAR VOLUME (BEAKER) (test jvzy=339) 88.4 fL 79.4-94.8 MEAN CORPUSCULAR HEMOGLOBIN (BEAKER) (test 26.2 pg 25.6-32.2 quql=492) MEAN CORPUSCULAR HEMOGLOBIN CONC (BEAKER) (test 29.7 GM/DL 32.2-35.5 zovl=953) RED CELL DISTRIBUTION WIDTH (BEAKER) (test 19.5 % 11.7-14.4 dqxi=679) PLATELET COUNT (BEAKER) (test erqz=436) 519 K/CU MM 150-450 MEAN PLATELET VOLUME (BEAKER) (test aitk=090) 9.9 fL 9.4-12.3 NUCLEATED RED BLOOD CELLS (BEAKER) (test 0 /100 WBC 0-0 qqqm=193) NEUTROPHILS RELATIVE PERCENT (BEAKER) (test 60 % myes=777) LYMPHOCYTES RELATIVE PERCENT (BEAKER) (test 26 % bdfa=684) MONOCYTES RELATIVE PERCENT (BEAKER) (test 7 % cwrh=986) EOSINOPHILS RELATIVE PERCENT (BEAKER) (test 6 % lovw=311) BASOPHILS RELATIVE PERCENT (BEAKER) (test 0 % keqk=650) NEUTROPHILS ABSOLUTE COUNT (BEAKER) (test 6.97 K/ L 1.56-6.13 rqtw=393) LYMPHOCYTES ABSOLUTE COUNT (BEAKER) (test 3.03 K/ L 1.18-3.74 qone=825) MONOCYTES ABSOLUTE COUNT (BEAKER) (test 0.86 K/ L 0.24-0.36 iggd=741) EOSINOPHILS ABSOLUTE COUNT (BEAKER) (test 0.71 K/ L 0.04-0.36 tgqg=730) BASOPHILS ABSOLUTE COUNT (BEAKER) (test 0.04 K/ L 0.01-0.08 gabl=320) IMMATURE GRANULOCYTES-RELATIVE PERCENT (BEAKER) 1 % 0-1 (test umfk=9975) POCT-GLUCOSE [id number] 08:05:00 Test Item Value Reference Range Comments POC-GLUCOSE METER (BEAKER) 245 mg/dL 70-110 TESTED AT [address] (test mzcd=5280) [facility] [address] POCT-GLUCOSE [id number] 21:42:00 Test Item Value Reference Range Comments POC-GLUCOSE METER (BEAKER) 163 mg/dL 70-110 TESTED AT [address] (test etyy=1120) [facility] [address] POCT-GLUCOSE [id number] 18:57:00 Test Item Value Reference Range Comments POC-GLUCOSE METER (BEAKER) 65 mg/dL 70-110 Will Repeat Test/TESTED AT (test meuf=4739) [address] [address] POCT-GLUCOSE [id number] 14:12:00 Test Item Value Reference Range Comments POC-GLUCOSE METER (BEAKER) 72 mg/dL 70-110 TESTED AT [address] (test mvzc=4982) [facility] [address] POCT-GLUCOSE [id number] 10:46:00 Test Item Value Reference Range Comments POC-GLUCOSE METER (BEAKER) 361 mg/dL 70-110 Will Repeat Test/TESTED AT (test rsme=6350) [facility] [address] [facility] [address] BASIC METABOLIC [id number] 10:11:00 Test Item Value Reference Range Comments SODIUM (BEAKER) (test 138 meq/L 136-145 zujc=108) POTASSIUM (BEAKER) (test 5.1 meq/L 3.5-5.1 etxf=095) CHLORIDE (BEAKER) (test 107 meq/L 98-107 gtgl=007) CO2 (BEAKER) (test 24 meq/L 22-29 ypjo=300) BLOOD UREA NITROGEN 9 mg/dL 7-21 (BEAKER) (test yxtd=187) CREATININE (BEAKER) (test 0.63 mg/dL 0.57-1.25 grrm=696) GLUCOSE RANDOM (BEAKER) 107 mg/dL 70-105 (test ybhg=772) CALCIUM (BEAKER) (test 7.4 mg/dL 8.4-10.2 sdbx=462) EGFR (BEAKER) (test 140 mL/min/1.73 sq m ESTIMATED GFR IS NOT athv=3111) ACCURATE CREATININE CLEARANCE IN PREDICTING GLOMERULAR FILTRATION RATE. ESTIMATED GFR IS NOT APPLICABLE FOR DIALYSIS PATIENTS. CBC W/PLT COUNT & AUTO [id number] 09:22:00 Test Item Value Reference Range Comments WHITE BLOOD CELL COUNT (BEAKER) (test soen=800) 14.8 K/ L 3.5-10.5 RED BLOOD CELL COUNT (BEAKER) (test iyew=528) 3.65 M/ L 3.93-5.22 HEMOGLOBIN (BEAKER) (test avpf=863) 9.9 GM/DL 11.2-15.7 HEMATOCRIT (BEAKER) (test rxzg=557) 32.5 % 34.1-44.9 MEAN CORPUSCULAR VOLUME (BEAKER) (test jjtj=748) 89.0 fL 79.4-94.8 MEAN CORPUSCULAR HEMOGLOBIN (BEAKER) (test 27.1 pg 25.6-32.2 xfkf=649) MEAN CORPUSCULAR HEMOGLOBIN CONC (BEAKER) (test 30.5 GM/DL 32.2-35.5 ibyi=274) RED CELL DISTRIBUTION WIDTH (BEAKER) (test 19.4 % 11.7-14.4 yvbs=934) PLATELET COUNT (BEAKER) (test ttmo=833) 490 K/CU MM 150-450 MEAN PLATELET VOLUME (BEAKER) (test omtz=282) 9.6 fL 9.4-12.3 NUCLEATED RED BLOOD CELLS (BEAKER) (test 0 /100 WBC 0-0 derc=246) NEUTROPHILS RELATIVE PERCENT (BEAKER) (test 64 % lzal=733) LYMPHOCYTES RELATIVE PERCENT (BEAKER) (test 24 % ervt=940) MONOCYTES RELATIVE PERCENT (BEAKER) (test 7 % abuh=479) EOSINOPHILS RELATIVE PERCENT (BEAKER) (test 5 % ncdu=866) BASOPHILS RELATIVE PERCENT (BEAKER) (test 0 % mexs=306) NEUTROPHILS ABSOLUTE COUNT (BEAKER) (test 9.41 K/ L 1.56-6.13 alup=910) LYMPHOCYTES ABSOLUTE COUNT (BEAKER) (test 3.48 K/ L 1.18-3.74 mjio=345) MONOCYTES ABSOLUTE COUNT (BEAKER) (test 1.04 K/ L 0.24-0.36 suon=616) EOSINOPHILS ABSOLUTE COUNT (BEAKER) (test 0.70 K/ L 0.04-0.36 qpth=506) BASOPHILS ABSOLUTE COUNT (BEAKER) (test 0.03 K/ L 0.01-0.08 oper=049) IMMATURE GRANULOCYTES-RELATIVE PERCENT (BEAKER) 1 % 0-1 (test xvdl=1924) POCT-GLUCOSE [id number] 22:41:00 Test Item Value Reference Range Comments POC-GLUCOSE METER (BEAKER) 118 mg/dL 70-110 TESTED AT [address] (test vkbw=7730) [place] [address] [id number] 17:38:00 Test Item Value Reference Range Comments POTASSIUM (BEAKER) (test tmkl=263) 5.4 meq/L 3.5-5.1 POCT-GLUCOSE [id number] 17:31:00 Test Item Value Reference Range Comments POC-GLUCOSE METER (BEAKER) 111 mg/dL 70-110 TESTED AT [address] (test pzaw=5794) [place] [address] POCT-GLUCOSE [id number] 12:16:00 Test Item Value Reference Range Comments POC-GLUCOSE METER (BEAKER) 186 mg/dL 70-110 TESTED AT [address] (test snvl=2947) [place] [address] POCT-GLUCOSE [id number] 09:29:00 Test Item Value Reference Range Comments POC-GLUCOSE METER (BEAKER) 159 mg/dL 70-110 TESTED AT [address] (test qthx=0618) [facility] [address] POCT-GLUCOSE [id number] 08:59:00 Test Item Value Reference Range Comments POC-GLUCOSE METER (BEAKER) 29 mg/dL 70-110 Will Repeat Test/TESTED AT (test jlea=7867) [address] [address] POCT-GLUCOSE [id number] 06:52:00 Test Item Value Reference Range Comments POC-GLUCOSE METER (BEAKER) 492 mg/dL 70-110 Notified JORDON STAPLETON/TESTED AT [facility] (test exqn=0315) [address] [place] [address] COMPREHENSIVE METABOLIC [id number] 06:27:00 Test Item Value Reference Range Comments TOTAL PROTEIN (BEAKER) 6.4 gm/dL 6.0-8.3 (test vecj=396) ALBUMIN (BEAKER) (test 2.8 g/dL 3.5-5.0 hceu=3117) ALKALINE PHOSPHATASE 139 U/L 40-150 (BEAKER) (test peek=912) BILIRUBIN TOTAL (BEAKER) 0.1 mg/dL 0.2-1.2 (test xzif=403) SODIUM (BEAKER) (test 134 meq/L 136-145 cvot=125) POTASSIUM (BEAKER) (test 5.3 meq/L 3.5-5.1 gvdb=136) CHLORIDE (BEAKER) (test 96 meq/L 98-107 mssa=330) CO2 (BEAKER) (test 29 meq/L 22-29 pone=305) BLOOD UREA NITROGEN 14 mg/dL 7-21 (BEAKER) (test lniz=245) CREATININE (BEAKER) (test 0.79 mg/dL 0.57-1.25 efog=832) GLUCOSE RANDOM (BEAKER) 435 mg/dL 70-105 (test tuds=148) CALCIUM (BEAKER) (test 8.4 mg/dL 8.4-10.2 frph=007) AST (SGOT) (BEAKER) (test 54 U/L 5-34 grzk=929) ALT (SGPT) (BEAKER) (test 75 U/L 6-55 akqu=693) EGFR (BEAKER) (test 107 mL/min/1.73 sq ESTIMATED GFR IS NOT veos=6596) m ACCURATE CREATININE CLEARANCE IN PREDICTING GLOMERULAR FILTRATION RATE. ESTIMATED GFR IS NOT APPLICABLE FOR DIALYSIS PATIENTS. CBC (HEMOGRAM ONLY)2018-02-28 05:50:00 Test Item Value Reference Range Comments WHITE BLOOD CELL COUNT (BEAKER) (test fmti=289) 16.3 K/ L 3.5-10.5 RED BLOOD CELL COUNT (BEAKER) (test ckbs=480) 3.49 M/ L 3.93-5.22 HEMOGLOBIN (BEAKER) (test mvry=917) 9.2 GM/DL 11.2-15.7 HEMATOCRIT (BEAKER) (test vssq=994) 31.2 % 34.1-44.9 MEAN CORPUSCULAR VOLUME (BEAKER) (test pwms=624) 89.4 fL 79.4-94.8 MEAN CORPUSCULAR HEMOGLOBIN (BEAKER) (test 26.4 pg 25.6-32.2 ovpv=597) MEAN CORPUSCULAR HEMOGLOBIN CONC (BEAKER) (test 29.5 GM/DL 32.2-35.5 cohw=148) RED CELL DISTRIBUTION WIDTH (BEAKER) (test 18.7 % 11.7-14.4 vfoz=382) PLATELET COUNT (BEAKER) (test nqen=412) 473 K/CU MM 150-450 MEAN PLATELET VOLUME (BEAKER) (test farh=084) 9.6 fL 9.4-12.3 NUCLEATED RED BLOOD CELLS (BEAKER) (test 0 /100 WBC 0-0 tusm=492) POCT-GLUCOSE [id number] 17:54:00 Test Item Value Reference Range Comments POC-GLUCOSE METER (BEAKER) 386 mg/dL 70-110 Notified RN or MD Patient (test nqqp=4722) refused repeat test/TESTED AT [address] [address] POCT-GLUCOSE [id number] 12:41:00 Test Item Value Reference Range Comments POC-GLUCOSE METER (BEAKER) 104 mg/dL 70-110 TESTED AT [address] (test ngit=8952) [facility] [address] POCT-GLUCOSE [id number] 07:57:00 Test Item Value Reference Range Comments POC-GLUCOSE METER (BEAKER) 140 mg/dL 70-110 TESTED AT [facility] [address] (test zedn=8852) [facility] [address] BASIC METABOLIC [id number] 05:36:00 Test Item Value Reference Range Comments SODIUM (BEAKER) (test 138 meq/L 136-145 ayik=381) POTASSIUM (BEAKER) (test 4.7 meq/L 3.5-5.1 pcgy=447) CHLORIDE (BEAKER) (test 97 meq/L 98-107 geys=814) CO2 (BEAKER) (test 33 meq/L 22-29 blaw=303) BLOOD UREA NITROGEN 15 mg/dL 7-21 (BEAKER) (test yziz=512) CREATININE (BEAKER) (test 0.64 mg/dL 0.57-1.25 ufdi=538) GLUCOSE RANDOM (BEAKER) 135 mg/dL 70-105 (test qgnt=323) CALCIUM (BEAKER) (test 8.6 mg/dL 8.4-10.2 wsmf=252) EGFR (BEAKER) (test 137 mL/min/1.73 sq m ESTIMATED GFR IS NOT omag=5069) ACCURATE CREATININE CLEARANCE IN PREDICTING GLOMERULAR FILTRATION RATE. ESTIMATED GFR IS NOT APPLICABLE FOR DIALYSIS PATIENTS. CBC (HEMOGRAM ONLY)2018-02-27 05:15:00 Test Item Value Reference Range Comments WHITE BLOOD CELL COUNT (BEAKER) (test rigj=735) 13.8 K/ L 3.5-10.5 RED BLOOD CELL COUNT (BEAKER) (test ekgr=655) 3.46 M/ L 3.93-5.22 HEMOGLOBIN (BEAKER) (test ehcm=465) 9.0 GM/DL 11.2-15.7 HEMATOCRIT (BEAKER) (test radl=911) 30.3 % 34.1-44.9 MEAN CORPUSCULAR VOLUME (BEAKER) (test bgoj=546) 87.6 fL 79.4-94.8 MEAN CORPUSCULAR HEMOGLOBIN (BEAKER) (test 26.0 pg 25.6-32.2 dsgu=239) MEAN CORPUSCULAR HEMOGLOBIN CONC (BEAKER) (test 29.7 GM/DL 32.2-35.5 eequ=842) RED CELL DISTRIBUTION WIDTH (BEAKER) (test 18.4 % 11.7-14.4 qwgq=138) PLATELET COUNT (BEAKER) (test qppi=129) 473 K/CU MM 150-450 MEAN PLATELET VOLUME (BEAKER) (test hnty=029) 9.6 fL 9.4-12.3 NUCLEATED RED BLOOD CELLS (BEAKER) (test 0 /100 WBC 0-0 lztn=263) POCT-GLUCOSE [id number] 21:46:00 Test Item Value Reference Range Comments POC-GLUCOSE METER (BEAKER) 117 mg/dL 70-110 TESTED AT [address] (test bcxs=5671) [place] [id number] POCT-GLUCOSE [id number] 17:44:00 Test Item Value Reference Range Comments POC-GLUCOSE METER (BEAKER) 142 mg/dL 70-110 TESTED AT [address] (test mpdt=2242) [place] [address] POCT-GLUCOSE [id number] 12:49:00 Test Item Value Reference Range Comments POC-GLUCOSE METER (BEAKER) 420 mg/dL 70-110 TESTED AT [address] (test wkyd=1828) [facility] [address] POCT-GLUCOSE [id number] 08:52:00 Test Item Value Reference Range Comments POC-GLUCOSE METER (BEAKER) 381 mg/dL 70-110 TESTED AT [address] (test dmvt=9910) [facility] [address] BASIC METABOLIC [id number] 05:59:00 Test Item Value Reference Range Comments SODIUM (BEAKER) (test 141 meq/L 136-145 yfka=007) POTASSIUM (BEAKER) (test 4.0 meq/L 3.5-5.1 maht=959) CHLORIDE (BEAKER) (test 103 meq/L 98-107 iduf=860) CO2 (BEAKER) (test 26 meq/L 22-29 nkxw=366) BLOOD UREA NITROGEN 14 mg/dL 7-21 (BEAKER) (test mzfv=135) CREATININE (BEAKER) (test 0.68 mg/dL 0.57-1.25 hkwu=483) GLUCOSE RANDOM (BEAKER) 181 mg/dL 70-105 (test qvjo=865) CALCIUM (BEAKER) (test 8.3 mg/dL 8.4-10.2 fipg=489) EGFR (BEAKER) (test 128 mL/min/1.73 sq m ESTIMATED GFR IS NOT spwa=8695) ACCURATE CREATININE CLEARANCE IN PREDICTING GLOMERULAR FILTRATION RATE. ESTIMATED GFR IS NOT APPLICABLE FOR DIALYSIS PATIENTS. CBC (HEMOGRAM ONLY)2018-02-26 05:02:00 Test Item Value Reference Range Comments WHITE BLOOD CELL COUNT (BEAKER) (test lybj=288) 13.4 K/ L 3.5-10.5 RED BLOOD CELL COUNT (BEAKER) (test kefu=211) 3.36 M/ L 3.93-5.22 HEMOGLOBIN (BEAKER) (test giic=884) 9.0 GM/DL 11.2-15.7 HEMATOCRIT (BEAKER) (test xxzf=843) 29.6 % 34.1-44.9 MEAN CORPUSCULAR VOLUME (BEAKER) (test hvog=657) 88.1 fL 79.4-94.8 MEAN CORPUSCULAR HEMOGLOBIN (BEAKER) (test 26.8 pg 25.6-32.2 bduu=663) MEAN CORPUSCULAR HEMOGLOBIN CONC (BEAKER) (test 30.4 GM/DL 32.2-35.5 nzaj=007) RED CELL DISTRIBUTION WIDTH (BEAKER) (test 17.9 % 11.7-14.4 jyyy=643) PLATELET COUNT (BEAKER) (test smxl=691) 423 K/CU MM 150-450 MEAN PLATELET VOLUME (BEAKER) (test ezlo=847) 9.9 fL 9.4-12.3 NUCLEATED RED BLOOD CELLS (BEAKER) (test 0 /100 WBC 0-0 jkjf=625) POCT-GLUCOSE [id number] 23:16:00 Test Item Value Reference Range Comments POC-GLUCOSE METER (BEAKER) 146 mg/dL 70-110 TESTED AT [address] (test ssel=0591) [facility] [address] POCT-GLUCOSE [id number] 19:07:00 Test Item Value Reference Range Comments POC-GLUCOSE METER (BEAKER) 268 mg/dL 70-110 TESTED AT [address] (test qlsh=9450) [facility] [address] POCT-GLUCOSE [id number] 15:33:00 Test Item Value Reference Range Comments POC-GLUCOSE METER (BEAKER) 288 mg/dL 70-110 TESTED AT [address] (test felx=8404) [place] [id number] POCT-GLUCOSE [id number] 15:17:00 Test Item Value Reference Range Comments POC-GLUCOSE METER (BEAKER) 79 mg/dL 70-110 TESTED AT [address] (test sdoh=2918) [place] [address] POCT-GLUCOSE [id number] 12:53:00 Test Item Value Reference Range Comments POC-GLUCOSE METER (BEAKER) 48 mg/dL 70-110 Patient on insulin Drip/TESTED (test yjoj=2223) AT [place] [address] RAD, ABDOMEN/KUB, 1 VIEW [id number] 08:30:00Reason for exam:->Monitor constipationFINAL REPORT Chest one view compared to February Discussion: There is moderate retained feces overall similar in appearance. No evidence of bowel distention. No evidence of free intraperitoneal air. No concerning calcification. Signed: Flip Choe Verified Date/Time: 02/25/2018 08:30:00 Reading Location: [facility] Radiology Reading Room Electronically signed by: FLIP CHOE M.D. on 01/2018 08:30 AMPOCT-GLUCOSE [id number] 08:15:00 Test Item Value Reference Range Comments POC-GLUCOSE METER (BEAKER) 83 mg/dL 70-110 TESTED AT [address] (test ukln=9673) [place] [address] CF RESPIRATORY [id number] 00:03:00 Test Item Value Reference Range Comments CULTURE (BEAKER) (test PSEUDOMONAS 3+ Pseudomonas zgaa=6104) AERUGINOSA aeruginosa (MUCOID-PHENOTYPE) (Mucoid-phenotype) Amikacin (test code=1) Susceptible 0-16 , Resistant <0 or >16 Aztreonam (test Susceptible 0-8 , code=32) Resistant <0 or >8 Cefepime (test code=51) Susceptible 0-8 , Resistant <0 or >8 Ceftazidime (test Susceptible 0-8 , code=27) Resistant <0 or >8 Ciprofloxacin (test Susceptible 0-1 , code=7) Resistant <0 or >1 Doripenem (test Susceptible 0-2 , cxhj=235) Resistant <0 or >2 Gentamicin (test Susceptible [...] >4 CULTURE (BEAKER) (test PSEUDOMONAS 3+ Pseudomonas jueq=1499) AERUGINOSA aeruginosa (MUCOID-PHENOTYPE) (Mucoid-phenotype)of a second type Amikacin (test code=1) Susceptible 0-16 , Resistant <0 or >16 Aztreonam (test Susceptible 0-8 , code=32) Resistant <0 or >8 Cefepime (test code=51) Susceptible 0-8 , Resistant <0 or >8 Ceftazidime (test Susceptible 0-8 , code=27) Resistant <0 or >8 Ciprofloxacin (test Susceptible 0-1 , code=7) Resistant <0 or >1 Doripenem (test Susceptible 0-2 , xbqu=784) Resistant <0 or >2 Gentamicin (test Susceptible [...] >4 CULTURE (BEAKER) (test PSEUDOMONAS 2+ Pseudomonas xtiy=9560) AERUGINOSA aeruginosaof a third type Amikacin (test code=1) Susceptible 0-16 , Resistant <0 or >16 Aztreonam (test Susceptible 0-8 , code=32) Resistant <0 or >8 Cefepime (test code=51) Susceptible 0-8 , Resistant <0 or >8 Ceftazidime (test Susceptible 0-8 , code=27) Resistant <0 or >8 Ciprofloxacin (test Susceptible 0-1 , code=7) Resistant <0 or >1 Doripenem (test Susceptible 0-2 , qxwl=889) Resistant <0 or >2 Gentamicin (test Susceptible [...] or >4 3+ Normal respiratory derick presentPOCT-GLUCOSE [id number] 21:18:00 Test Item Value Reference Range Comments POC-GLUCOSE METER (BEAKER) 311 mg/dL 70-110 TESTED AT [address] (test sggq=9180) [place] [address] POCT-GLUCOSE [id number] 17:13:00 Test Item Value Reference Range Comments POC-GLUCOSE METER (BEAKER) 319 mg/dL 70-110 TESTED AT [address] (test qnrr=5899) [place] [id number] POCT-GLUCOSE [id number] 12:28:00 Test Item Value Reference Range Comments POC-GLUCOSE METER (BEAKER) 415 mg/dL 70-110 Notified JORDON STAPLETON/TESTED AT [facility] (test tssa=5308) [address] [place] [address] BLOOD [id number] 06:00:00 Test Item Value Reference Range Comments CULTURE (BEAKER) (test ynfe=8403) No growth in 5 days BLOOD [id number] 06:00:00 Test Item Value Reference Range Comments CULTURE (BEAKER) (test gkmi=4659) No growth in 5 days LACTIC ACID, VENOUS, WHOLE [id number] 05:46:00 Test Item Value Reference Range Comments LACTATE BLOOD VENOUS (2) (BEAKER) (test 1.0 mmol/L 0.5-2.2 mazm=3690) Effective 02/26/2016: Units/Reference Range ChangeNew: 0.5-2.2 mmol/L Previous: 5 -20 mg/dLBASIC METABOLIC [id number] 05:41:00 Test Item Value Reference Range Comments SODIUM (BEAKER) (test 135 meq/L 136-145 tyoa=991) POTASSIUM (BEAKER) (test 4.8 meq/L 3.5-5.1 ypah=344) CHLORIDE (BEAKER) (test 100 meq/L 98-107 donk=936) CO2 (BEAKER) (test 28 meq/L 22-29 xgqc=624) BLOOD UREA NITROGEN 27 mg/dL 7-21 (BEAKER) (test iiuc=436) CREATININE (BEAKER) (test 0.78 mg/dL 0.57-1.25 bxij=436) GLUCOSE RANDOM (BEAKER) 309 mg/dL 70-105 (test pfxb=385) CALCIUM (BEAKER) (test 8.8 mg/dL 8.4-10.2 xrya=503) EGFR (BEAKER) (test 109 mL/min/1.73 sq m ESTIMATED GFR IS NOT mtdk=2347) ACCURATE CREATININE CLEARANCE IN PREDICTING GLOMERULAR FILTRATION RATE. ESTIMATED GFR IS NOT APPLICABLE FOR DIALYSIS PATIENTS. CBC W/PLT COUNT & AUTO [id number] 05:27:00 Test Item Value Reference Range Comments WHITE BLOOD CELL COUNT (BEAKER) (test ohqy=669) 19.9 K/ L 3.5-10.5 RED BLOOD CELL COUNT (BEAKER) (test djmq=097) 3.20 M/ L 3.93-5.22 HEMOGLOBIN (BEAKER) (test hszs=600) 8.3 GM/DL 11.2-15.7 HEMATOCRIT (BEAKER) (test ujlp=905) 27.7 % 34.1-44.9 MEAN CORPUSCULAR VOLUME (BEAKER) (test fszo=896) 86.6 fL 79.4-94.8 MEAN CORPUSCULAR HEMOGLOBIN (BEAKER) (test 25.9 pg 25.6-32.2 mtcm=566) MEAN CORPUSCULAR HEMOGLOBIN CONC (BEAKER) (test 30.0 GM/DL 32.2-35.5 dtyh=065) RED CELL DISTRIBUTION WIDTH (BEAKER) (test 16.7 % 11.7-14.4 uzjv=767) PLATELET COUNT (BEAKER) (test pdll=772) 320 K/CU MM 150-450 MEAN PLATELET VOLUME (BEAKER) (test bgvz=974) 10.8 fL 9.4-12.3 NUCLEATED RED BLOOD CELLS (BEAKER) (test 0 /100 WBC 0-0 fweq=771) NEUTROPHILS RELATIVE PERCENT (BEAKER) (test 79 % auid=504) LYMPHOCYTES RELATIVE PERCENT (BEAKER) (test 13 % fjwn=440) MONOCYTES RELATIVE PERCENT (BEAKER) (test 5 % xhqr=221) EOSINOPHILS RELATIVE PERCENT (BEAKER) (test 1 % durw=669) BASOPHILS RELATIVE PERCENT (BEAKER) (test 0 % hrdz=933) NEUTROPHILS ABSOLUTE COUNT (BEAKER) (test 15.63 K/ L 1.56-6.13 edwr=588) LYMPHOCYTES ABSOLUTE COUNT (BEAKER) (test 2.50 K/ L 1.18-3.74 pppp=296) MONOCYTES ABSOLUTE COUNT (BEAKER) (test 1.03 K/ L 0.24-0.36 oeoa=418) EOSINOPHILS ABSOLUTE COUNT (BEAKER) (test 0.25 K/ L 0.04-0.36 kttd=106) BASOPHILS ABSOLUTE COUNT (BEAKER) (test 0.04 K/ L 0.01-0.08 vpjj=558) IMMATURE GRANULOCYTES-RELATIVE PERCENT (BEAKER) 2 % 0-1 (test ofdr=1923) POCT-GLUCOSE [id number] 21:47:00 Test Item Value Reference Range Comments POC-GLUCOSE METER (BEAKER) 258 mg/dL 70-110 TESTED AT [facility] [address] [facility] (test upys=7639) [facility] [address] POCT-GLUCOSE [id number] 17:44:00 Test Item Value Reference Range Comments POC-GLUCOSE METER (BEAKER) 151 mg/dL 70-110 TESTED AT [facility] [address] [facility] (test kdzt=0536) [facility] [address] RAD, ABDOMEN/KUB, 1 VIEW [id number] 15:48:00Reason for exam:->eval for ileus vs obstructionFINAL REPORT Two abdomen images compared to February 20, 2018 Discussion: Moderate retained feces. No evidence of small bowel distention. No evidence of free intraperitoneal air. Regional bones are unremarkable. No concerning calcification. Signed: Flip Choe MDReport Verified Date/Time: 02/23/2018 15:48:56 Reading Location: [facility] [id number] Consult Reading Room Electronicallysigned by: FLIP CHOE M.D. on 02/23/2018 03: 48 PMPOCT-GLUCOSE [id number] 12:11:00 Test Item Value Reference Range Comments POC-GLUCOSE METER (BEAKER) 479 mg/dL 70-110 TESTED AT [address] (test qmve=6101) [facility] [address] POCT-GLUCOSE [id number] 08:30:00 Test Item Value Reference Range Comments POC-GLUCOSE METER (BEAKER) > mg/dL 70-110 OUTSIDE MEASURING RANGENotified RN (test xjpb=6151) MD/TESTED AT [address] [address] BASIC METABOLIC [id number] 05:51:00 Test Item Value Reference Range Comments SODIUM (BEAKER) (test 134 meq/L 136-145 utgj=702) POTASSIUM (BEAKER) (test 5.1 meq/L 3.5-5.1 onsk=040) CHLORIDE (BEAKER) (test 98 meq/L 98-107 zqyl=923) CO2 (BEAKER) (test 28 meq/L 22-29 svyo=906) BLOOD UREA NITROGEN 21 mg/dL 7-21 (BEAKER) (test vpyp=884) CREATININE (BEAKER) (test 0.72 mg/dL 0.57-1.25 uomz=744) GLUCOSE RANDOM (BEAKER) 398 mg/dL 70-105 (test vpgv=110) CALCIUM (BEAKER) (test 8.6 mg/dL 8.4-10.2 inmi=928) EGFR (BEAKER) (test 120 mL/min/1.73 sq m ESTIMATED GFR IS NOT uebx=4287) ACCURATE CREATININE CLEARANCE IN PREDICTING GLOMERULAR FILTRATION RATE. ESTIMATED GFR IS NOT APPLICABLE FOR DIALYSIS PATIENTS. CBC W/PLT COUNT & AUTO [id number] 05:39:00 Test Item Value Reference Range Comments WHITE BLOOD CELL COUNT (BEAKER) (test rsoa=799) 18.6 K/ L 3.5-10.5 RED BLOOD CELL COUNT (BEAKER) (test nxdi=677) 3.25 M/ L 3.93-5.22 HEMOGLOBIN (BEAKER) (test rduj=563) 8.7 GM/DL 11.2-15.7 HEMATOCRIT (BEAKER) (test pfhw=535) 28.2 % 34.1-44.9 MEAN CORPUSCULAR VOLUME (BEAKER) (test npfy=793) 86.8 fL 79.4-94.8 MEAN CORPUSCULAR HEMOGLOBIN (BEAKER) (test 26.8 pg 25.6-32.2 jagp=662) MEAN CORPUSCULAR HEMOGLOBIN CONC (BEAKER) (test 30.9 GM/DL 32.2-35.5 nyir=963) RED CELL DISTRIBUTION WIDTH (BEAKER) (test 16.4 % 11.7-14.4 tshx=102) PLATELET COUNT (BEAKER) (test edlb=810) 288 K/CU MM 150-450 MEAN PLATELET VOLUME (BEAKER) (test iyzv=363) 10.8 fL 9.4-12.3 NUCLEATED RED BLOOD CELLS (BEAKER) (test 0 /100 WBC 0-0 jkwf=937) NEUTROPHILS RELATIVE PERCENT (BEAKER) (test 89 % mxxs=090) LYMPHOCYTES RELATIVE PERCENT (BEAKER) (test 6 % pkgk=732) MONOCYTES RELATIVE PERCENT (BEAKER) (test 3 % ymaj=564) EOSINOPHILS RELATIVE PERCENT (BEAKER) (test 0 % hxaf=580) BASOPHILS RELATIVE PERCENT (BEAKER) (test 0 % vndw=737) NEUTROPHILS ABSOLUTE COUNT (BEAKER) (test 16.59 K/ L 1.56-6.13 apsu=985) LYMPHOCYTES ABSOLUTE COUNT (BEAKER) (test 1.20 K/ L 1.18-3.74 uzin=070) MONOCYTES ABSOLUTE COUNT (BEAKER) (test 0.56 K/ L 0.24-0.36 gxrc=033) EOSINOPHILS ABSOLUTE COUNT (BEAKER) (test 0.02 K/ L 0.04-0.36 sikd=056) BASOPHILS ABSOLUTE COUNT (BEAKER) (test 0.02 K/ L 0.01-0.08 qxlf=752) IMMATURE GRANULOCYTES-RELATIVE PERCENT (BEAKER) 1 % 0-1 (test gltu=2022) POCT-GLUCOSE [id number] 21:48:00 Test Item Value Reference Range Comments POC-GLUCOSE METER (BEAKER) 405 mg/dL 70-110 TESTED AT [address] (test kvrw=7410) [facility] [address] POCT-GLUCOSE [id number] 17:42:00 Test Item Value Reference Range Comments POC-GLUCOSE METER (BEAKER) 325 mg/dL 70-110 Notified RN or MD Patient (test wbtx=2123) refused repeat test/TESTED AT [address] [address] POCT-GLUCOSE [id number] 13:00:00 Test Item Value Reference Range Comments POC-GLUCOSE METER (BEAKER) 62 mg/dL 70-110 Notified RN MD/TESTED AT [facility] (test ucur=8043) [address] [place] [id number] POCT-GLUCOSE [id number] 12:20:00 Test Item Value Reference Range Comments POC-GLUCOSE METER (BEAKER) 50 mg/dL 70-110 Will Repeat Test/TESTED AT (test klva=3915) [address] [address] POCT-GLUCOSE [id number] 12:20:00 Test Item Value Reference Range Comments POC-GLUCOSE METER (BEAKER) 37 mg/dL 70-110 Notified RN or MD Patient (test qevx=7995) refused repeat test/TESTED AT [address] [address] POCT-GLUCOSE [id number] 08:11:00 Test Item Value Reference Range Comments POC-GLUCOSE METER (BEAKER) 372 mg/dL 70-110 TESTED AT [address] (test rcld=8254) [facility] [address] BASIC METABOLIC [id number] 06:08:00 Test Item Value Reference Range Comments SODIUM (BEAKER) (test 135 meq/L 136-145 nqtl=711) POTASSIUM (BEAKER) (test 4.2 meq/L 3.5-5.1 iaby=240) CHLORIDE (BEAKER) (test 102 meq/L 98-107 gfbg=855) CO2 (BEAKER) (test 26 meq/L 22-29 answ=578) BLOOD UREA NITROGEN 25 mg/dL 7-21 (BEAKER) (test ksru=253) CREATININE (BEAKER) (test 0.69 mg/dL 0.57-1.25 gqjx=863) GLUCOSE RANDOM (BEAKER) 296 mg/dL 70-105 (test yrpy=714) CALCIUM (BEAKER) (test 8.2 mg/dL 8.4-10.2 dbpv=583) EGFR (BEAKER) (test 126 mL/min/1.73 sq m ESTIMATED GFR IS NOT rtha=5698) ACCURATE CREATININE CLEARANCE IN PREDICTING GLOMERULAR FILTRATION RATE. ESTIMATED GFR IS NOT APPLICABLE FOR DIALYSIS PATIENTS. CBC W/PLT COUNT & AUTO [id number] 05:42:00 Test Item Value Reference Range Comments WHITE BLOOD CELL COUNT (BEAKER) (test xdku=958) 14.7 K/ L 3.5-10.5 RED BLOOD CELL COUNT (BEAKER) (test tckt=677) 3.39 M/ L 3.93-5.22 HEMOGLOBIN (BEAKER) (test drsm=915) 8.7 GM/DL 11.2-15.7 HEMATOCRIT (BEAKER) (test nvpu=326) 29.5 % 34.1-44.9 MEAN CORPUSCULAR VOLUME (BEAKER) (test cjpf=905) 87.0 fL 79.4-94.8 MEAN CORPUSCULAR HEMOGLOBIN (BEAKER) (test 25.7 pg 25.6-32.2 vigq=435) MEAN CORPUSCULAR HEMOGLOBIN CONC (BEAKER) (test 29.5 GM/DL 32.2-35.5 dspy=707) RED CELL DISTRIBUTION WIDTH (BEAKER) (test 16.2 % 11.7-14.4 cbxh=640) PLATELET COUNT (BEAKER) (test ywkl=060) 294 K/CU MM 150-450 MEAN PLATELET VOLUME (BEAKER) (test rjnw=006) 11.2 fL 9.4-12.3 NUCLEATED RED BLOOD CELLS (BEAKER) (test 0 /100 WBC 0-0 osyu=934) NEUTROPHILS RELATIVE PERCENT (BEAKER) (test 72 % vquf=171) LYMPHOCYTES RELATIVE PERCENT (BEAKER) (test 19 % zjgw=275) MONOCYTES RELATIVE PERCENT (BEAKER) (test 6 % mvhm=618) EOSINOPHILS RELATIVE PERCENT (BEAKER) (test 2 % ylxv=694) BASOPHILS RELATIVE PERCENT (BEAKER) (test 0 % zsqq=897) NEUTROPHILS ABSOLUTE COUNT (BEAKER) (test 10.58 K/ L 1.56-6.13 dmws=725) LYMPHOCYTES ABSOLUTE COUNT (BEAKER) (test 2.80 K/ L 1.18-3.74 djrz=071) MONOCYTES ABSOLUTE COUNT (BEAKER) (test 0.84 K/ L 0.24-0.36 urwr=655) EOSINOPHILS ABSOLUTE COUNT (BEAKER) (test 0.34 K/ L 0.04-0.36 njgo=049) BASOPHILS ABSOLUTE COUNT (BEAKER) (test 0.03 K/ L 0.01-0.08 wkus=667) IMMATURE GRANULOCYTES-RELATIVE PERCENT (BEAKER) 1 % 0-1 (test cysw=8221) POCT-GLUCOSE [id number] 19:45:00 Test Item Value Reference Range Comments POC-GLUCOSE METER (BEAKER) 81 mg/dL 70-110 TESTED AT [address] (test tmux=3828) [place] [id number] POCT-GLUCOSE [id number] 15:40:00 Test Item Value Reference Range Comments POC-GLUCOSE METER (BEAKER) 190 mg/dL 70-110 TESTED AT [address] (test vptg=9215) [place] [id number] POCT-GLUCOSE [id number] 10:56:00 Test Item Value Reference Range Comments POC-GLUCOSE METER (BEAKER) 262 mg/dL 70-110 TESTED AT [address] (test hyne=6443) [place] [id number] POCT-GLUCOSE [id number] 08:59:00 Test Item Value Reference Range Comments POC-GLUCOSE METER (BEAKER) 246 mg/dL 70-110 TESTED AT [address] (test vgvf=9689) [place] [id number] POCT-GLUCOSE [id number] 08:13:00 Test Item Value Reference Range Comments POC-GLUCOSE METER (BEAKER) 176 mg/dL 70-110 TESTED AT [address] (test rkpd=1380) [place] [id number] POCT-GLUCOSE [id number] 07:18:00 Test Item Value Reference Range Comments POC-GLUCOSE METER (BEAKER) 193 mg/dL 70-110 TESTED AT [address] (test ezax=4958) [place] [id number] POCT-GLUCOSE [id number] 06:35:00 Test Item Value Reference Range Comments POC-GLUCOSE METER (BEAKER) 178 mg/dL 70-110 TESTED AT [address] (test cntu=4532) [facility] [address] BASIC METABOLIC [id number] 06:18:00 Test Item Value Reference Range Comments SODIUM (BEAKER) (test 138 meq/L 136-145 jytn=014) POTASSIUM (BEAKER) (test 4.3 meq/L 3.5-5.1 ubyo=170) CHLORIDE (BEAKER) (test 105 meq/L 98-107 mvqc=598) CO2 (BEAKER) (test 26 meq/L 22-29 hxbu=293) BLOOD UREA NITROGEN 19 mg/dL 7-21 (BEAKER) (test vger=440) CREATININE (BEAKER) (test 0.67 mg/dL 0.57-1.25 zsxp=130) GLUCOSE RANDOM (BEAKER) 142 mg/dL 70-105 (test xipg=173) CALCIUM (BEAKER) (test 8.4 mg/dL 8.4-10.2 qmdz=593) EGFR (BEAKER) (test 130 mL/min/1.73 sq m ESTIMATED GFR IS NOT ezue=3925) ACCURATE CREATININE CLEARANCE IN PREDICTING GLOMERULAR FILTRATION RATE. ESTIMATED GFR IS NOT APPLICABLE FOR DIALYSIS PATIENTS. CBC W/PLT COUNT & AUTO [id number] 06:07:00 Test Item Value Reference Range Comments WHITE BLOOD CELL COUNT (BEAKER) (test jxrl=362) 12.9 K/ L 3.5-10.5 RED BLOOD CELL COUNT (BEAKER) (test cytx=806) 3.38 M/ L 3.93-5.22 HEMOGLOBIN (BEAKER) (test qvrj=167) 8.9 GM/DL 11.2-15.7 HEMATOCRIT (BEAKER) (test gylh=407) 29.3 % 34.1-44.9 MEAN CORPUSCULAR VOLUME (BEAKER) (test arnw=803) 86.7 fL 79.4-94.8 MEAN CORPUSCULAR HEMOGLOBIN (BEAKER) (test 26.3 pg 25.6-32.2 izwr=631) MEAN CORPUSCULAR HEMOGLOBIN CONC (BEAKER) (test 30.4 GM/DL 32.2-35.5 zelg=334) RED CELL DISTRIBUTION WIDTH (BEAKER) (test 15.7 % 11.7-14.4 ehwz=785) PLATELET COUNT (BEAKER) (test ntgz=118) 301 K/CU MM 150-450 MEAN PLATELET VOLUME (BEAKER) (test wyxt=378) 10.5 fL 9.4-12.3 NUCLEATED RED BLOOD CELLS (BEAKER) (test 0 /100 WBC 0-0 qooj=917) NEUTROPHILS RELATIVE PERCENT (BEAKER) (test 71 % blch=092) LYMPHOCYTES RELATIVE PERCENT (BEAKER) (test 21 % jrrx=379) MONOCYTES RELATIVE PERCENT (BEAKER) (test 6 % bvkg=302) EOSINOPHILS RELATIVE PERCENT (BEAKER) (test 2 % xjqq=701) BASOPHILS RELATIVE PERCENT (BEAKER) (test 0 % iswo=189) NEUTROPHILS ABSOLUTE COUNT (BEAKER) (test 9.13 K/ L 1.56-6.13 ntqm=400) LYMPHOCYTES ABSOLUTE COUNT (BEAKER) (test 2.70 K/ L 1.18-3.74 jklf=867) MONOCYTES ABSOLUTE COUNT (BEAKER) (test 0.74 K/ L 0.24-0.36 idse=747) EOSINOPHILS ABSOLUTE COUNT (BEAKER) (test 0.19 K/ L 0.04-0.36 xchi=464) BASOPHILS ABSOLUTE COUNT (BEAKER) (test 0.01 K/ L 0.01-0.08 tipc=190) IMMATURE GRANULOCYTES-RELATIVE PERCENT (BEAKER) 1 % 0-1 (test jakh=7628) POCT-GLUCOSE [id number] 05:15:00 Test Item Value Reference Range Comments POC-GLUCOSE METER (BEAKER) 169 mg/dL 70-110 TESTED AT [address] (test ughm=7402) [place] [address] POCT-GLUCOSE [id number] 04:27:00 Test Item Value Reference Range Comments POC-GLUCOSE METER (BEAKER) 271 mg/dL 70-110 TESTED AT [address] (test tbsm=2254) [place] [address] POCT-GLUCOSE [id number] 03:45:00 Test Item Value Reference Range Comments POC-GLUCOSE METER (BEAKER) 269 mg/dL 70-110 TESTED AT [address] (test qkom=3919) [place] [address] POCT-GLUCOSE [id number] 01:40:00 Test Item Value Reference Range Comments POC-GLUCOSE METER (BEAKER) 200 mg/dL 70-110 TESTED AT [address] (test olxp=8266) [place] [address] BASIC METABOLIC [id number] 00:50:00 Test Item Value Reference Range Comments SODIUM (BEAKER) (test 138 meq/L 136-145 wime=840) POTASSIUM (BEAKER) (test 4.0 meq/L 3.5-5.1 seal=851) CHLORIDE (BEAKER) (test 105 meq/L 98-107 kfie=290) CO2 (BEAKER) (test 25 meq/L 22-29 tcie=669) BLOOD UREA NITROGEN 19 mg/dL 7-21 (BEAKER) (test stcf=641) CREATININE (BEAKER) (test 0.71 mg/dL 0.57-1.25 uqdo=998) GLUCOSE RANDOM (BEAKER) 101 mg/dL 70-105 (test kpoj=340) CALCIUM (BEAKER) (test 8.1 mg/dL 8.4-10.2 spyl=135) EGFR (BEAKER) (test 122 mL/min/1.73 sq m ESTIMATED GFR IS NOT fqzt=1836) ACCURATE CREATININE CLEARANCE IN PREDICTING GLOMERULAR FILTRATION RATE. ESTIMATED GFR IS NOT APPLICABLE FOR DIALYSIS PATIENTS. POCT-GLUCOSE [id number] 00:49:00 Test Item Value Reference Range Comments POC-GLUCOSE METER (BEAKER) 103 mg/dL 70-110 TESTED AT [address] (test hogg=9337) [facility] [address] POCT-GLUCOSE [id number] 00:28:00 Test Item Value Reference Range Comments POC-GLUCOSE METER (BEAKER) 109 mg/dL 70-110 TESTED AT [address] (test vafv=6333) [facility] [address] POCT-GLUCOSE [id number] 23:10:00 Test Item Value Reference Range Comments POC-GLUCOSE METER (BEAKER) 191 mg/dL 70-110 TESTED AT [address] (test qccw=1820) [facility] [address] POCT-GLUCOSE [id number] 22:17:00 Test Item Value Reference Range Comments POC-GLUCOSE METER (BEAKER) 257 mg/dL 70-110 TESTED AT [address] (test djzc=6320) [facility] [address] POCT-GLUCOSE [id number] 21:28:00 Test Item Value Reference Range Comments POC-GLUCOSE METER (BEAKER) 261 mg/dL 70-110 TESTED AT [address] (test onhr=5601) [place] [id number] POCT-GLUCOSE [id number] 20:19:00 Test Item Value Reference Range Comments POC-GLUCOSE METER (BEAKER) 223 mg/dL 70-110 TESTED AT [address] (test bies=5317) [place] [address] POCT-GLUCOSE [id number] 19:30:00 Test Item Value Reference Range Comments POC-GLUCOSE METER (BEAKER) 218 mg/dL 70-110 TESTED AT [address] (test fjhd=5349) [place] [address] POCT-GLUCOSE [id number] 18:28:00 Test Item Value Reference Range Comments POC-GLUCOSE METER (BEAKER) 167 mg/dL 70-110 TESTED AT [address] (test klaw=2827) [place] [address] BASIC METABOLIC [id number] 17:37:00 Test Item Value Reference Range Comments SODIUM (BEAKER) (test 136 meq/L 136-145 osyw=500) POTASSIUM (BEAKER) (test 4.2 meq/L 3.5-5.1 hjbz=265) CHLORIDE (BEAKER) (test 104 meq/L 98-107 snfk=095) CO2 (BEAKER) (test 23 meq/L 22-29 vrie=561) BLOOD UREA NITROGEN 17 mg/dL 7-21 (BEAKER) (test egvw=471) CREATININE (BEAKER) (test 0.79 mg/dL 0.57-1.25 lstn=634) GLUCOSE RANDOM (BEAKER) 340 mg/dL 70-105 (test fhus=848) CALCIUM (BEAKER) (test 8.1 mg/dL 8.4-10.2 denh=679) EGFR (BEAKER) (test 107 mL/min/1.73 sq m ESTIMATED GFR IS NOT jkkk=1039) ACCURATE CREATININE CLEARANCE IN PREDICTING GLOMERULAR FILTRATION RATE. ESTIMATED GFR IS NOT APPLICABLE FOR DIALYSIS PATIENTS. POCT-GLUCOSE [id number] 17:29:00 Test Item Value Reference Range Comments POC-GLUCOSE METER (BEAKER) 357 mg/dL 70-110 TESTED AT [address] (test skmi=4093) [place] [address] POCT-GLUCOSE [id number] 16:17:00 Test Item Value Reference Range Comments POC-GLUCOSE METER (BEAKER) 412 mg/dL 70-110 TESTED AT [facility] [address] [facility] (test davo=3840) [facility] [address] POCT-GLUCOSE [id number] 14:57:00 Test Item Value Reference Range Comments POC-GLUCOSE METER (BEAKER) 356 mg/dL 70-110 TESTED AT [facility] [address] [facility] (test jern=7952) [facility] [address] POCT-GLUCOSE [id number] 14:08:00 Test Item Value Reference Range Comments POC-GLUCOSE METER (BEAKER) 247 mg/dL 70-110 TESTED AT [address] (test umpe=0472) [facility] [address] RAD, ABDOMEN/KUB, 1 VIEW [id number] 14:07:00Reason for exam:->Abdominal pain, Cystic FibrosisShould this be performed at the bedside?->YesFINAL REPORT Two frontal views of the abdomen HISTORY: Abdominal pain COMPARISON: 05/03/2017 IMPRESSION: Moderate amount of stool in the colon. Nonobstructive bowel gas pattern. Bronchiectasis in the lungs. Lung bases otherwise clear. Signed: Michael Onofre MDReport Verified Date/Time: 2017 14:07:49 Reading Location: [address] Body Reading Room [facility] [id number] 13:15:00 Test Item Value Reference Range Comments SODIUM (BEAKER) (test 136 meq/L 136-145 lvly=718) POTASSIUM (BEAKER) (test 3.7 meq/L 3.5-5.1 kmqn=690) CHLORIDE (BEAKER) (test 104 meq/L 98-107 mchq=842) CO2 (BEAKER) (test 23 meq/L 22-29 vcbj=804) BLOOD UREA NITROGEN 14 mg/dL 7-21 (BEAKER) (test bxdf=242) CREATININE (BEAKER) (test 0.65 mg/dL 0.57-1.25 qfhp=986) GLUCOSE RANDOM (BEAKER) 318 mg/dL 70-105 (test fjhc=122) CALCIUM (BEAKER) (test 8.4 mg/dL 8.4-10.2 frww=344) EGFR (BEAKER) (test 135 mL/min/1.73 sq m ESTIMATED GFR IS NOT xetx=0427) ACCURATE CREATININE CLEARANCE IN PREDICTING GLOMERULAR FILTRATION RATE. ESTIMATED GFR IS NOT APPLICABLE FOR DIALYSIS PATIENTS. POCT-GLUCOSE [id number] 12:22:00 Test Item Value Reference Range Comments POC-GLUCOSE METER (BEAKER) 367 mg/dL 70-110 TESTED AT [address] (test xszr=7234) [place] [id number] POCT-GLUCOSE [id number] 11:11:00 Test Item Value Reference Range Comments POC-GLUCOSE METER (BEAKER) 458 mg/dL 70-110 TESTED AT [address] (test ffcz=4222) [place] [address] [id number] 11:11:00 Test Item Value Reference Range Comments GLUCOSE RANDOM (BEAKER) (test icrx=513) 449 mg/dL 70-105 POCT-GLUCOSE [id number] 10:06:00 Test Item Value Reference Range Comments POC-GLUCOSE METER (BEAKER) > mg/dL 70-110 OUTSIDE MEASURING RANGETESTED AT (test hiep=1649) [place] [address] SPUTUM CULTURE + GRAM [id number] 09:42:00 Test Item Value Reference Range Comments CULTURE (BEAKER) (test taqd=7032) See comment Culture charges credited as "incorrect order". Please refer to CF respiratory culture for results.Previously reported organism is no longer reported. Please contact the Microbiology Department for additional information.POCT- GLUCOSE [id number] 09:12:00 Test Item Value Reference Range Comments POC-GLUCOSE METER (BEAKER) 388 mg/dL 70-110 TESTED AT [address] (test kuhb=3029) [place] [id number] POCT-GLUCOSE [id number] 07:56:00 Test Item Value Reference Range Comments POC-GLUCOSE METER (BEAKER) 194 mg/dL 70-110 TESTED AT [address] (test itwp=2662) [place] [address] POCT-GLUCOSE [id number] 06:35:00 Test Item Value Reference Range Comments POC-GLUCOSE METER (BEAKER) 157 mg/dL 70-110 TESTED AT [address] (test eboa=7413) [place] [address] POCT-GLUCOSE [id number] 05:10:00 Test Item Value Reference Range Comments POC-GLUCOSE METER (BEAKER) 247 mg/dL 70-110 TESTED AT [address] (test hzeh=9118) [facility] [address] BASIC METABOLIC [id number] 04:54:00 Test Item Value Reference Range Comments SODIUM (BEAKER) (test 135 meq/L 136-145 vhhq=367) POTASSIUM (BEAKER) (test 3.9 meq/L 3.5-5.1 yppb=410) CHLORIDE (BEAKER) (test 104 meq/L 98-107 onog=485) CO2 (BEAKER) (test 23 meq/L 22-29 jkbw=844) BLOOD UREA NITROGEN 20 mg/dL 7-21 (BEAKER) (test jeap=314) CREATININE (BEAKER) (test 0.72 mg/dL 0.57-1.25 poxj=825) GLUCOSE RANDOM (BEAKER) 263 mg/dL 70-105 (test oadj=106) CALCIUM (BEAKER) (test 8.0 mg/dL 8.4-10.2 ljlm=971) EGFR (BEAKER) (test 120 mL/min/1.73 sq m ESTIMATED GFR IS NOT tiuw=3095) ACCURATE CREATININE CLEARANCE IN PREDICTING GLOMERULAR FILTRATION RATE. ESTIMATED GFR IS NOT APPLICABLE FOR DIALYSIS PATIENTS. POCT-GLUCOSE [id number] 04:07:00 Test Item Value Reference Range Comments POC-GLUCOSE METER (BEAKER) 290 mg/dL 70-110 TESTED AT [address] (test xryw=8674) [facility] [address] POCT-GLUCOSE [id number] 03:04:00 Test Item Value Reference Range Comments POC-GLUCOSE METER (BEAKER) 309 mg/dL 70-110 TESTED AT [address] (test fzwc=6727) [place] [id number] POCT-GLUCOSE [id number] 01:36:00 Test Item Value Reference Range Comments POC-GLUCOSE METER (BEAKER) 361 mg/dL 70-110 TESTED AT [address] (test iqng=4324) [facility] [address] POCT-GLUCOSE [id number] 00:06:00 Test Item Value Reference Range Comments POC-GLUCOSE METER (BEAKER) 308 mg/dL 70-110 TESTED AT [address] (test vaed=8750) [facility] [address] URINALYSIS W/ [id number] 23:11:00 Test Item Value Reference Range Comments COLOR (BEAKER) (test bwmm=673) Light Yellow CLARITY (BEAKER) (test ixox=840) Clear SPECIFIC GRAVITY UA (BEAKER) (test aspv=921) 1.033 1.001-1.035 PH UA (BEAKER) (test rhxy=611) 6.0 5.0-8.0 PROTEIN UA (BEAKER) (test kznj=334) 50 mg/dL Negative GLUCOSE UA (BEAKER) (test syam=779) >1000 mg/dL Negative KETONES UA (BEAKER) (test qaai=937) Negative Negative BILIRUBIN UA (BEAKER) (test jnpf=820) Negative Negative BLOOD UA (BEAKER) (test bnyw=766) Negative Negative NITRITE UA (BEAKER) (test xfcx=598) Negative Negative LEUKOCYTE ESTERASE UA (BEAKER) (test hgbz=221) Negative Negative UROBILINOGEN UA (BEAKER) (test mbty=957) 0.2 mg/dL 0.2-1.0 RBC UA (BEAKER) (test vkwv=451) 3 /HPF WBC UA (BEAKER) (test iesc=713) 3 /HPF MUCUS (BEAKER) (test abis=3458) Rare SQUAMOUS EPITHELIAL (BEAKER) (test bmol=344) 1 /HPF SOURCE(BEAKER) (test ygnj=9500) Urine, Voided POCT-GLUCOSE [id number] 22:35:00 Test Item Value Reference Range Comments POC-GLUCOSE METER (BEAKER) 350 mg/dL 70-110 TESTED AT [address] (test ugba=3283) [facility] [address] POCT-GLUCOSE [id number] 21:17:00 Test Item Value Reference Range Comments POC-GLUCOSE METER (BEAKER) 438 mg/dL 70-110 TESTED AT [address] (test hngz=9572) [facility] [address] POCT-GLUCOSE [id number] 20:16:00 Test Item Value Reference Range Comments POC-GLUCOSE METER (BEAKER) 446 mg/dL 70-110 TESTED AT [address] (test rwoo=0332) [place] [address] POCT-GLUCOSE [id number] 18:57:00 Test Item Value Reference Range Comments POC-GLUCOSE METER (BEAKER) 452 mg/dL 70-110 Will Repeat Test/TESTED AT (test lnnj=9832) [place] [address] [id number] 18:10:00 Test Item Value Reference Range Comments GLUCOSE RANDOM (BEAKER) (test ihnq=694) 548 mg/dL 70-105 If last glucose was less than 500, may do bedside glucose instead of serum glucose.POCT-GLUCOSE [id number] 17:46:00 Test Item Value Reference Range Comments POC-GLUCOSE METER (BEAKER) > mg/dL 70-110 OUTSIDE MEASURING RANGEWill (test gtoi=2527) Repeat Test/TESTED AT [place] [address] POCT-GLUCOSE [id number] 16:37:00 Test Item Value Reference Range Comments POC-GLUCOSE METER (BEAKER) > mg/dL 70-110 OUTSIDE MEASURING RANGEWill (test nudc=0876) Repeat Test/TESTED AT [place] [address] [id number] 16:07:00 Test Item Value Reference Range Comments GLUCOSE RANDOM (BEAKER) (test mznd=192) 658 mg/dL 70-105 If last glucose was less than 500, may do bedside glucose instead of serum glucose.[id number] 15:53:00 Test Item Value Reference Range Comments POTASSIUM (BEAKER) (test itbu=407) 4.2 meq/L 3.5-5.1 If last glucose was less than 500, may do bedside glucose instead of serum glucose.POCT-GLUCOSE [id number] 15:37:00 Test Item Value Reference Range Comments POC-GLUCOSE METER (BEAKER) > mg/dL 70-110 OUTSIDE MEASURING RANGETESTED AT (test raan=7653) [place] [address] [id number] 14:05:00 Test Item Value Reference Range Comments GLUCOSE RANDOM (BEAKER) (test otyx=041) 682 mg/dL 70-105 If last glucose was less than 500, may do bedside glucose instead of serum glucose.[id number] 14:03:00 Test Item Value Reference Range Comments POTASSIUM (BEAKER) (test tias=670) 4.2 meq/L 3.5-5.1 If last glucose was less than 500, may do bedside glucose instead of serum glucose.KETONE, [id number] 13:59:00 Test Item Value Reference Range Comments KETONES, BLOOD (BEAKER) (test fjgx=3179) 0.1 mmol/L <0.4 BASIC METABOLIC [id number] 10:48:00 Test Item Value Reference Range Comments SODIUM (BEAKER) (test 129 meq/L 136-145 vyhm=426) POTASSIUM (BEAKER) (test 5.2 meq/L 3.5-5.1 rjdv=655) CHLORIDE (BEAKER) (test 91 meq/L 98-107 lqyw=833) CO2 (BEAKER) (test 22 meq/L 22-29 ckxy=146) BLOOD UREA NITROGEN 18 mg/dL 7-21 (BEAKER) (test txan=304) CREATININE (BEAKER) (test 1.28 mg/dL 0.57-1.25 zfyb=440) GLUCOSE RANDOM (BEAKER) 889 mg/dL 70-105 (test izmy=954) CALCIUM (BEAKER) (test 8.1 mg/dL 8.4-10.2 dzdu=703) EGFR (BEAKER) (test 62 mL/min/1.73 sq m ESTIMATED GFR IS NOT ymyi=3786) ACCURATE CREATININE CLEARANCE IN PREDICTING GLOMERULAR FILTRATION RATE. ESTIMATED GFR IS NOT APPLICABLE FOR DIALYSIS PATIENTS. TROPONIN [id number] 10:40:00 Test Item Value Reference Range Comments TROPONIN I (BEAKER) (test igrn=515) < ng/mL 0.00-0.03 Troponin I (TnI) levels [...] acidosis, acute neurological disease, and persistent tachyarrhythmia.POCT-GLUCOSE [id number] 09:51:00 Test Item Value Reference Range Comments POC-GLUCOSE METER (BEAKER) > mg/dL 70-110 OUTSIDE MEASURING RANGENotified RN (test bmlv=2973) MD/TESTED AT [address] [address] POCT-GLUCOSE [id number] 08:34:00 Test Item Value Reference Range Comments POC-GLUCOSE METER (BEAKER) > mg/dL 70-110 OUTSIDE MEASURING RANGENotified RN (test ghnx=2834) MD/TESTED AT [address] [address] RESPIRATORY PANEL [id number] 07:53:00 Test Item Value Reference Range Comments HUMAN METAPNEUMOVIRUS (BEAKER) (test Not detected Not detected, Inconclusive zejy=7737) RHINOVIRUS (BEAKER) (test mtfz=3232) Not detected Not detected, Inconclusive INFLUENZA A (BEAKER) (test Not detected Not detected, Inconclusive yxig=8793) INFLUENZA A SUBTYPE H1 (BEAKER) Not detected Not detected, Inconclusive (test efvy=9665) INFLUENZA A SUBTYPE H3 (BEAKER) Not detected Not detected, Inconclusive (test ffno=8930) INFLUENZA A SUBTYPE H1-2009 (BEAKER) Not detected Not detected, Inconclusive (test late=6237) INFLUENZA B (BEAKER) (test Not detected Not detected, Inconclusive ybnb=9764) RESPIRATORY SYNCYTIAL VIRUS (BEAKER) Not detected Not detected, Inconclusive (test vewt=0954) PARAINFLUENZA VIRUS 1 (BEAKER) (test Not detected Not detected, Inconclusive sftu=3665) PARAINFLUENZA VIRUS 2 (BEAKER) (test Not detected Not detected, Inconclusive ulmh=5334) PARAINFLUENZA VIRUS 3 (BEAKER) (test Not detected Not detected, Inconclusive vucb=1508) PARAINFLUENZA VIRUS 4 (BEAKER) (test Not detected Not detected, Inconclusive luel=8652) ADENOVIRUS (BEAKER) (test lcaj=3465) Not detected Not detected, Inconclusive CORONAVIRUS 229E (BEAKER) (test Not detected Not detected, Inconclusive wrcc=5130) CORONAVIRUS HKU1 (BEAKER) (test Not detected Not detected, Inconclusive ubyl=2701) CORONAVIRUS NL63 (BEAKER) (test Not detected Not detected, Inconclusive rvjn=9648) CORONAVIRUS OC43 (BEAKER) (test Not detected Not detected, Inconclusive jcft=4599) BORDETELLA PERTUSSIS (BEAKER) (test Not detected Not detected, Inconclusive rbhu=3861) CHLAMYDOPHILA PNEUMONIAE (BEAKER) Not detected Not detected, Inconclusive (test vvtv=8853) MYCOPLASMA PNEUMONIAE (BEAKER) (test Not detected Not detected, Inconclusive xpht=1866) HEMOGLOBIN [id number] 07:34:00 Test Item Value Reference Range Comments HEMOGLOBIN A1C (BEAKER) (test aiif=161) 14.5 % 4.3-6.1 [id number] 05:23:00 Test Item Value Reference Range Comments BLOOD UREA NITROGEN (KIAKER) (test ltej=085) 15 mg/dL 7-21 [id number] 05:23:00 Test Item Value Reference Range Comments CREATININE (BEAKER) (test 1.31 mg/dL 0.57-1.25 agik=230) EGFR (KIAKER) (test 60 mL/min/1.73 sq m ESTIMATED GFR IS NOT gjva=2530) ACCURATE CREATININE CLEARANCE IN PREDICTING GLOMERULAR FILTRATION RATE. ESTIMATED GFR IS NOT APPLICABLE FOR DIALYSIS PATIENTS. POCT-LACTIC ACID, [id number] 02:44:00 Test Item Value Reference Range Comments POC-LACTIC ACID, VENOUS 1.4 mmol/L 0.9-1.7 TESTED AT [facility] [address] [place] [address] (MERA) (test gldx=3283) [facility] [address] TROPONIN [id number] 00:25:00 Test Item Value Reference Range Comments TROPONIN I (KIAKER) (test fdqn=154) < ng/mL 0.00-0.03 Troponin I (TnI) levels [...] disease, and persistent tachyarrhythmia.LACTIC ACID, VENOUS, WHOLE [id number] 00:16:00 Test Item Value Reference Range Comments LACTATE BLOOD VENOUS (2) (BEAKER) (test 2.1 mmol/L 0.5-2.2 lylw=7335) Effective 02/26/2016: Units/Reference Range ChangeNew: 0.5-2.2 mmol/L Previous: 5 -20 mg/dLKETONE, [id number] 23:58:00 Test Item Value Reference Range Comments KETONES, BLOOD (BEAKER) (test grxn=0903) 0.4 mmol/L <0.4 RAPID STREP A [id number] 23:13:00 Test Item Value Reference Range Comments STREP A ANTIGEN (BEAKER) (test dqzu=969) Negative Negative TROPONIN [id number] 22:54:00 Test Item Value Reference Range Comments TROPONIN I (BEAKER) (test nlty=926) < ng/mL 0.00-0.03 Troponin I (TnI) levels [...] and persistent tachyarrhythmia.CREATINE KINASE (CK), TOTAL AND [id number] 22:54:00 Test Item Value Reference Range Comments CREATINE KINASE TOTAL (BEAKER) (test 13 U/L 29-200 agny=202) CREATINE KINASE-MB (BEAKER) (test 0.1 ng/mL 0.0-6.6 ytuc=697) CREATINE KINASE-MB INDEX (BEAKER) (test 0.8 % Unable to Calculate tmpq=915) CK-MB Reference Range:<6.7 Normal6.7-10.0 Borderline>10.0 AbnormalCOMPREHENSIVE METABOLIC [id number] 22:48:00 Test Item Value Reference Range Comments TOTAL PROTEIN (BEAKER) 7.2 gm/dL 6.0-8.3 (test qupk=687) ALBUMIN (BEAKER) (test 2.7 g/dL 3.5-5.0 npak=7460) ALKALINE PHOSPHATASE 182 U/L 40-150 (BEAKER) (test tata=326) BILIRUBIN TOTAL (BEAKER) 0.4 mg/dL 0.2-1.2 (test wgqv=224) SODIUM (BEAKER) (test 135 meq/L 136-145 dgcu=201) POTASSIUM (BEAKER) (test 3.8 meq/L 3.5-5.1 qbhf=168) CHLORIDE (BEAKER) (test 95 meq/L 98-107 uaum=041) CO2 (BEAKER) (test 28 meq/L 22-29 chfr=715) BLOOD UREA NITROGEN 8 mg/dL 7-21 (BEAKER) (test zoep=443) CREATININE (BEAKER) (test 0.68 mg/dL 0.57-1.25 jnch=669) GLUCOSE RANDOM (BEAKER) 180 mg/dL 70-105 (test fkfw=184) CALCIUM (BEAKER) (test 9.0 mg/dL 8.4-10.2 jmye=863) AST (SGOT) (BEAKER) (test 9 U/L 5-34 mqnf=106) ALT (SGPT) (BEAKER) (test 6 U/L 6-55 ynet=675) EGFR (BEAKER) (test 128 mL/min/1.73 sq ESTIMATED GFR IS NOT pgpj=9777) m ACCURATE CREATININE CLEARANCE IN PREDICTING GLOMERULAR FILTRATION RATE. ESTIMATED GFR IS NOT APPLICABLE FOR DIALYSIS PATIENTS. RAPID INFLUENZA A&B [id number] 22:47:00 Test Item Value Reference Range Comments RAPID INFLUENZA A AG (BEAKER) (test Negative Negative, Inconclusive mpim=2748) RAPID INFLUENZA B AG (BEAKER) (test Negative Negative, Inconclusive zafy=4369) LACTIC ACID, VENOUS, WHOLE [id number] 22:43:00 Test Item Value Reference Range Comments LACTATE BLOOD VENOUS (2) (BEAKER) (test 0.9 mmol/L 0.5-2.2 nmfm=0710) Effective 02/26/2016: Units/Reference Range ChangeNew: 0.5-2.2 mmol/L Previous: 5 -20 mg/dLPOCT-LACTIC ACID, [id number] 22:36:00 Test Item Value Reference Range Comments POC-LACTIC ACID, VENOUS 0.7 mmol/L 0.9-1.7 TESTED AT [facility] [address] [facility] (test jhze=2980) [facility] [address] POCT-GLUCOSE [id number] 22:35:00 Test Item Value Reference Range Comments POC-GLUCOSE METER (BEAKER) 191 mg/dL 70-110 TESTED AT [facility] [address] [place] [address] (test wmhm=4999) [facility] [address] CBC W/PLT COUNT & AUTO [id number] 22:33:00 Test Item Value Reference Range Comments WHITE BLOOD CELL COUNT (BEAKER) (test jlth=082) 19.5 K/ L 3.5-10.5 RED BLOOD CELL COUNT (BEAKER) (test kyxp=783) 4.00 M/ L 3.93-5.22 HEMOGLOBIN (BEAKER) (test zwot=987) 10.6 GM/DL 11.2-15.7 HEMATOCRIT (BEAKER) (test xorx=087) 33.5 % 34.1-44.9 MEAN CORPUSCULAR VOLUME (BEAKER) (test ynef=909) 83.8 fL 79.4-94.8 MEAN CORPUSCULAR HEMOGLOBIN (BEAKER) (test 26.5 pg 25.6-32.2 zxmn=501) MEAN CORPUSCULAR HEMOGLOBIN CONC (BEAKER) (test 31.6 GM/DL 32.2-35.5 gsby=833) RED CELL DISTRIBUTION WIDTH (BEAKER) (test 15.5 % 11.7-14.4 wdsr=913) PLATELET COUNT (BEAKER) (test dimk=061) 357 K/CU MM 150-450 MEAN PLATELET VOLUME (BEAKER) (test yqga=838) 10.9 fL 9.4-12.3 NUCLEATED RED BLOOD CELLS (BEAKER) (test 0 /100 WBC 0-0 uedx=824) NEUTROPHILS RELATIVE PERCENT (BEAKER) (test 83 % mhhc=411) LYMPHOCYTES RELATIVE PERCENT (BEAKER) (test 9 % yhak=207) MONOCYTES RELATIVE PERCENT (BEAKER) (test 7 % ewfk=037) EOSINOPHILS RELATIVE PERCENT (BEAKER) (test 1 % evul=382) BASOPHILS RELATIVE PERCENT (BEAKER) (test 0 % wvwy=482) NEUTROPHILS ABSOLUTE COUNT (BEAKER) (test 16.10 K/ L 1.56-6.13 qdgh=578) LYMPHOCYTES ABSOLUTE COUNT (BEAKER) (test 1.79 K/ L 1.18-3.74 zopj=805) MONOCYTES ABSOLUTE COUNT (BEAKER) (test 1.37 K/ L 0.24-0.36 sgrq=998) EOSINOPHILS ABSOLUTE COUNT (BEAKER) (test 0.12 K/ L 0.04-0.36 tgng=759) BASOPHILS ABSOLUTE COUNT (BEAKER) (test 0.04 K/ L 0.01-0.08 oqmo=692) IMMATURE GRANULOCYTES-RELATIVE PERCENT (BEAKER) 1 % 0-1 (test yvuz=0696) RAD, CHEST, 1 VIEW, NON [id number] 22:18:00Reason for exam:->SHORTNESS OF BREATHShould this be [...] study. No new cardiopulmonary abnormalities. Signed: Flip Singer Verified Date/Time: 02/18/2018 22:18:49 Reading Location: [facility] Diagnostic Imaging Reading Room - [place] [address] AFB CULTURE + [id number] 14:30: 00 Test Item Value Reference Range Comments CULTURE (BEAKER) (test No acid-fast bacilli isolated ufwp=1542) in 42 days AFB SMEAR (BEAKER) (test No acid fast bacilli seen sonm=053) FUNGUS CULTURE + [id number] 15:40:00 Test Item Value Reference Range Comments CULTURE (BEAKER) (test 1+ Clau dubliniensis qdor=5709) FUNGUS SMEAR (BEAKER) (test 1+ budding yeast rtgv=9161) CF RESPIRATORY [id number] 10:56:00 Test Item Value Reference Range Comments CULTURE (BEAKER) (test xmxd=5813) Amikacin (test code=1) Susceptible 0-16 , Resistant <0 or >16 Aztreonam (test Susceptible 0-8 , code=32) Resistant <0 or >8 Cefepime (test code=51) Susceptible 0-8 , Resistant <0 or >8 Ceftazidime (test Susceptible 0-8 , code=27) Resistant <0 or >8 Ciprofloxacin (test Susceptible 0-1 , code=7) Resistant <0 or >1 Doripenem (test Susceptible 0-2 , rmdy=720) Resistant <0 or >2 Gentamicin (test Susceptible [...] >4 CULTURE (BEAKER) (test PSEUDOMONAS 4+ Pseudomonas johr=5965) AERUGINOSA aeruginosa (Mucoid-phenotype) Amikacin (test code=1) Susceptible 0-16 , Resistant <0 or >16 Aztreonam (test Susceptible 0-8 , code=32) Resistant <0 or >8 Cefepime (test code=51) Susceptible 0-8 , Resistant <0 or >8 Ceftazidime (test Susceptible 0-8 , code=27) Resistant <0 or >8 Ciprofloxacin (test Susceptible 0-1 , code=7) Resistant <0 or >1 Doripenem (test Susceptible 0-2 , etqv=782) Resistant <0 or >2 Gentamicin (test Susceptible [...] or >4 CULTURE (BEAKER) (test 4+ Pseudomonas lhuh=3083) aeruginosa 2+ Normal respiratory derick presentBLOOD [id number] 23:00:00 Test Item Value Reference Range Comments CULTURE (BEAKER) (test bngc=9470) No growth in 5 days BLOOD [id number] 23:00:00 Test Item Value Reference Range Comments CULTURE (BEAKER) (test hgmp=9256) No growth in 5 days POCT-GLUCOSE [id number] 11:04:00 Test Item Value Reference Range Comments POC-GLUCOSE METER (BEAKER) 107 mg/dL 70-110 TESTED AT [address] (test tkhw=6431) [place] [id number] POCT-GLUCOSE [id number] 08:39:00 Test Item Value Reference Range Comments POC-GLUCOSE METER (BEAKER) 90 mg/dL 70-110 TESTED AT [address] (test wwnr=2140) [facility] [address] POCT-GLUCOSE [id number] 21:21:00 Test Item Value Reference Range Comments POC-GLUCOSE METER (BEAKER) 63 mg/dL 70-110 Notified JORDON STAPLETON/TESTED AT [facility] (test lduy=9677) [address] [place] [address] POCT-GLUCOSE [id number] 17:03:00 Test Item Value Reference Range Comments POC-GLUCOSE METER (BEAKER) 61 mg/dL 70-110 Will Repeat Test/TESTED AT (test qxbq=8528) [address] [address] POCT-GLUCOSE [id number] 12:18:00 Test Item Value Reference Range Comments POC-GLUCOSE METER (BEAKER) 54 mg/dL 70-110 Notified JORDON STAPLETON/TESTED AT [facility] (test ttpc=4522) [address] [place] [address] POCT-GLUCOSE [id number] 09:59:00 Test Item Value Reference Range Comments POC-GLUCOSE METER (BEAKER) 173 mg/dL 70-110 TESTED AT [address] (test iooc=8862) [place] [id number] BUN AND [id number] 05:43:00 Test Item Value Reference Range Comments BLOOD UREA NITROGEN 14 mg/dL 7-21 (BEAKER) (test xhaf=296) CREATININE (BEAKER) (test 0.71 mg/dL 0.57-1.25 hxmp=316) EGFR (BEAKER) (test 122 mL/min/1.73 sq m ESTIMATED GFR IS NOT ilat=7663) ACCURATE CREATININE CLEARANCE IN PREDICTING GLOMERULAR FILTRATION RATE. ESTIMATED GFR IS NOT APPLICABLE FOR DIALYSIS PATIENTS. POCT-GLUCOSE [id number] 22:13:00 Test Item Value Reference Range Comments POC-GLUCOSE METER (BEAKER) 171 mg/dL 70-110 TESTED AT [address] (test hnth=6418) [place] [address] POCT-GLUCOSE [id number] 17:15:00 Test Item Value Reference Range Comments POC-GLUCOSE METER (BEAKER) 163 mg/dL 70-110 TESTED AT [address] (test obid=6760) [place] [address] SPIN/CONCENTRATION [id number] 15:40:00 Test Item Value Reference Range Comments CONCENTRATION CHARGED (BEAKER) (test vmxs=9679) Done POCT-GLUCOSE [id number] 12:57:00 Test Item Value Reference Range Comments POC-GLUCOSE METER (BEAKER) 210 mg/dL 70-110 TESTED AT [address] (test dpsl=7826) [place] [address] POCT-GLUCOSE [id number] 08:13:00 Test Item Value Reference Range Comments POC-GLUCOSE METER (BEAKER) 288 mg/dL 70-110 TESTED AT [address] (test gxyd=1661) [place] [address] BUN AND [id number] 04:09:00 Test Item Value Reference Range Comments BLOOD UREA NITROGEN 13 mg/dL 7-21 (BEAKER) (test kzfj=722) CREATININE (BEAKER) (test 0.70 mg/dL 0.57-1.25 rgun=586) EGFR (BEAKER) (test 124 mL/min/1.73 sq m ESTIMATED GFR IS NOT xzij=1871) ACCURATE CREATININE CLEARANCE IN PREDICTING GLOMERULAR FILTRATION RATE. ESTIMATED GFR IS NOT APPLICABLE FOR DIALYSIS PATIENTS. POCT-GLUCOSE [id number] 21:28:00 Test Item Value Reference Range Comments POC-GLUCOSE METER (BEAKER) 307 mg/dL 70-110 TESTED AT [address] (test daev=8045) [place] [address] RESPIRATORY PANEL [id number] 19:09:00 Test Item Value Reference Range Comments HUMAN METAPNEUMOVIRUS Not detected Not detected, (BEAKER) (test fikh=3230) Inconclusive RHINOVIRUS (BEAKER) (test Not detected Not detected, ejpe=2656) Inconclusive INFLUENZA A (BEAKER) (test Not detected Not detected, brwn=1290) Inconclusive INFLUENZA A SUBTYPE H1 Not detected Not detected, (BEAKER) (test yncs=8342) Inconclusive INFLUENZA A SUBTYPE H3 Not detected Not detected, (BEAKER) (test bgnc=3458) Inconclusive INFLUENZA A SUBTYPE H1-2009 Not detected Not detected, (BEAKER) (test qvaj=4815) Inconclusive INFLUENZA B (BEAKER) (test Not detected Not detected, tnwe=6737) Inconclusive RESPIRATORY SYNCYTIAL VIRUS Not detected Not detected, (BEAKER) (test srex=9828) Inconclusive PARAINFLUENZA VIRUS 1 Not detected Not detected, (BEAKER) (test vnyx=4486) Inconclusive PARAINFLUENZA VIRUS 2 Not detected Not detected, (BEAKER) (test xkpk=3177) Inconclusive PARAINFLUENZA VIRUS 3 Not detected Not detected, (BEAKER) (test acaw=1207) Inconclusive PARAINFLUENZA VIRUS 4 Not detected Not detected, (BEAKER) (test lqzk=3739) Inconclusive ADENOVIRUS (BEAKER) (test Not detected Not detected, qhne=5863) Inconclusive CORONAVIRUS 229E (BEAKER) Not detected Not detected, (test zpmt=3319) Inconclusive CORONAVIRUS HKU1 (BEAKER) Detected Not detected, FilmArray RP assay for (test zwxv=8020) Inconclusive Coronavirus OC43 may cross react with some isolates of Coronavirus HKU1. A dual positive may be due to cross reactivity or may indicate a co-infection. CORONAVIRUS NL63 (BEAKER) Not detected Not detected, (test pkxz=2999) Inconclusive CORONAVIRUS OC43 (BEAKER) Not detected Not detected, FilmArray RP assay for (test hopn=0291) Inconclusive Coronavirus OC43 may cross react with some isolates of Coronavirus HKU1. A dual positive may be due to cross reactivity or may indicate a co-infection. BORDETELLA PERTUSSIS Not detected Not detected, (BEAKER) (test ktde=8209) Inconclusive CHLAMYDOPHILA PNEUMONIAE Not detected Not detected, (BEAKER) (test wvhq=8757) Inconclusive MYCOPLASMA PNEUMONIAE Not detected Not detected, (BEAKER) (test yhtu=3616) Inconclusive POCT-GLUCOSE [id number] 17:30:00 Test Item Value Reference Range Comments POC-GLUCOSE METER (BEAKER) 322 mg/dL 70-110 Will Repeat Test/TESTED AT (test jbvp=7045) [facility] [address] [facility] [address] URINALYSIS W/ [id number] 15:33:00 Test Item Value Reference Range Comments COLOR (BEAKER) (test gucz=092) Light Yellow CLARITY (BEAKER) (test izje=466) Clear SPECIFIC GRAVITY UA (BEAKER) (test pqks=281) 1.022 1.001-1.035 PH UA (BEAKER) (test eukf=091) 7.0 5.0-8.0 PROTEIN UA (BEAKER) (test hoqc=290) Negative Negative GLUCOSE UA (BEAKER) (test pwoi=013) >1000 mg/dL Negative KETONES UA (BEAKER) (test auns=908) Negative Negative BILIRUBIN UA (BEAKER) (test qnll=910) Negative Negative BLOOD UA (BEAKER) (test jejj=158) Negative Negative NITRITE UA (BEAKER) (test drob=183) Negative Negative LEUKOCYTE ESTERASE UA (BEAKER) (test tvpa=752) Negative Negative UROBILINOGEN UA (BEAKER) (test jmfm=398) 0.2 mg/dL 0.2-1.0 RBC UA (BEAKER) (test ptum=140) 1 /HPF WBC UA (BEAKER) (test jyox=776) < /HPF BACTERIA (BEAKER) (test qlry=865) Rare SQUAMOUS EPITHELIAL (BEAKER) (test yxwy=814) 1 /HPF SOURCE(BEAKER) (test sjaa=1492) Urine, Voided POCT-GLUCOSE [id number] 13:21:00 Test Item Value Reference Range Comments POC-GLUCOSE METER (BEAKER) 492 mg/dL 70-110 Will Repeat Test/TESTED AT (test qzen=4875) [facility] [address] [place] [address] POCT-GLUCOSE [id number] 13:15:00 Test Item Value Reference Range Comments POC-GLUCOSE METER (BEAKER) > mg/dL 70-110 OUTSIDE MEASURING RANGEWill (test ciwt=2006) Repeat Test/TESTED AT [place] [id number] [facility] [address] HEMOGLOBIN [id number] 08:57:00 Test Item Value Reference Range Comments HEMOGLOBIN A1C (BEAKER) (test ajup=505) 13.8 % 4.3-6.1 HEMOGLOBIN [id number] 08:57:00 Test Item Value Reference Range Comments HEMOGLOBIN A1C (BEAKER) (test ucea=622) 13.7 % 4.3-6.1 POCT-GLUCOSE [id number] 07:57:00 Test Item Value Reference Range Comments POC-GLUCOSE METER (BEAKER) 471 mg/dL 70-110 Will Repeat Test/TESTED AT (test znuo=4528) [facility] [address] [facility] [address] COMPREHENSIVE METABOLIC [id number] 03:12:00 Test Item Value Reference Range Comments TOTAL PROTEIN (BEAKER) 7.4 gm/dL 6.0-8.3 (test qeqp=055) ALBUMIN (BEAKER) (test 3.0 g/dL 3.5-5.0 vdgs=4652) ALKALINE PHOSPHATASE 119 U/L 40-150 (BEAKER) (test ntpm=982) BILIRUBIN TOTAL (BEAKER) < mg/dL 0.2-1.2 (test hdnc=588) SODIUM (BEAKER) (test 135 meq/L 136-145 vrpe=926) POTASSIUM (BEAKER) (test 4.4 meq/L 3.5-5.1 bafk=085) CHLORIDE (BEAKER) (test 101 meq/L 98-107 flhs=260) CO2 (BEAKER) (test 28 meq/L 22-29 rqva=613) BLOOD UREA NITROGEN 8 mg/dL 7-21 (BEAKER) (test kvbi=687) CREATININE (BEAKER) (test 0.73 mg/dL 0.57-1.25 vygj=325) GLUCOSE RANDOM (BEAKER) 119 mg/dL 70-105 (test ndoi=957) CALCIUM (BEAKER) (test 9.0 mg/dL 8.4-10.2 jacz=839) AST (SGOT) (BEAKER) (test 18 U/L 5-34 amjo=109) ALT (SGPT) (BEAKER) (test 9 U/L 6-55 toke=464) EGFR (BEAKER) (test 118 mL/min/1.73 sq ESTIMATED GFR IS NOT izlr=5498) m ACCURATE CREATININE CLEARANCE IN PREDICTING GLOMERULAR FILTRATION RATE. ESTIMATED GFR IS NOT APPLICABLE FOR DIALYSIS PATIENTS. BUN AND [id number] 03:11:00 Test Item Value Reference Range Comments BLOOD UREA NITROGEN 7 mg/dL 7-21 (BEAKER) (test gjfr=520) CREATININE (BEAKER) (test 0.72 mg/dL 0.57-1.25 ptjb=495) EGFR (BEAKER) (test 120 mL/min/1.73 sq m ESTIMATED GFR IS NOT peeo=3324) ACCURATE CREATININE CLEARANCE IN PREDICTING GLOMERULAR FILTRATION RATE. ESTIMATED GFR IS NOT APPLICABLE FOR DIALYSIS PATIENTS. GAMMA GLUTAMYL TRANSFERASE (GGT)2017-11-30 03:11:00 Test Item Value Reference Range Comments GAMMA GLUTAMYL TRANSFERASE (BEAKER) (test pzla=965) 19 U/L 9-64 [id number] 03:10:00 Test Item Value Reference Range Comments PHOSPHORUS (BEAKER) (test pebm=594) 3.6 mg/dL 2.3-4.7 [id number] 03:05:00 Test Item Value Reference Range Comments MAGNESIUM (BEAKER) (test iakf=760) 1.6 mg/dL 1.6-2.6 CBC W/PLT COUNT & AUTO [id number] 02:46:00 Test Item Value Reference Range Comments WHITE BLOOD CELL COUNT (BEAKER) (test bgsm=760) 9.5 K/ L 3.5-10.5 RED BLOOD CELL COUNT (BEAKER) (test oahh=191) 4.27 M/ L 3.93-5.22 HEMOGLOBIN (BEAKER) (test lqzl=845) 11.3 GM/DL 11.2-15.7 HEMATOCRIT (BEAKER) (test ggis=289) 36.4 % 34.1-44.9 MEAN CORPUSCULAR VOLUME (BEAKER) (test hxzg=777) 85.2 fL 79.4-94.8 MEAN CORPUSCULAR HEMOGLOBIN (BEAKER) (test 26.5 pg 25.6-32.2 vobn=835) MEAN CORPUSCULAR HEMOGLOBIN CONC (BEAKER) (test 31.0 GM/DL 32.2-35.5 qton=114) RED CELL DISTRIBUTION WIDTH (BEAKER) (test 15.0 % 11.7-14.4 erqt=690) PLATELET COUNT (BEAKER) (test zzkh=673) 314 K/CU MM 150-450 MEAN PLATELET VOLUME (BEAKER) (test epfd=811) 11.9 fL 9.4-12.3 NUCLEATED RED BLOOD CELLS (BEAKER) (test 0 /100 WBC 0-0 hukx=847) NEUTROPHILS RELATIVE PERCENT (BEAKER) (test 88 % iztq=774) LYMPHOCYTES RELATIVE PERCENT (BEAKER) (test 8 % bjyx=004) MONOCYTES RELATIVE PERCENT (BEAKER) (test 3 % jslm=579) EOSINOPHILS RELATIVE PERCENT (BEAKER) (test 1 % sqef=555) BASOPHILS RELATIVE PERCENT (BEAKER) (test 0 % tbss=851) NEUTROPHILS ABSOLUTE COUNT (BEAKER) (test 8.37 K/ L 1.56-6.13 iwba=047) LYMPHOCYTES ABSOLUTE COUNT (BEAKER) (test 0.74 K/ L 1.18-3.74 bhgg=963) MONOCYTES ABSOLUTE COUNT (BEAKER) (test 0.29 K/ L 0.24-0.36 dfpc=818) EOSINOPHILS ABSOLUTE COUNT (BEAKER) (test 0.07 K/ L 0.04-0.36 mhfp=392) BASOPHILS ABSOLUTE COUNT (BEAKER) (test 0.02 K/ L 0.01-0.08 yotv=086) IMMATURE GRANULOCYTES-RELATIVE PERCENT (BEAKER) 0 % 0-1 (test qnct=9560) RAD, CHEST, 2 [id number] 22:13:00Reason for exam:->Cystic FibrosisShould this be performed [...] however, superimposed pneumonitis cannot be excluded. Signed: Anil Nieves MDReport Verified Date/Time: 11/29/2017 22:13:03 Reading Location: [facility] [id number] Consult Reading Room POCT-GLUCOSE [id number] 21:13:00 Test Item Value Reference Range Comments POC-GLUCOSE METER (BEAKER) > mg/dL 70-110 OUTSIDE MEASURING RANGETESTED AT (test bmuv=2483) [facility] [address] [facility] [address] POCT-GLUCOSE [id number] 18:02:00 Test Item Value Reference Range Comments POC-GLUCOSE METER (BEAKER) 292 mg/dL 70-110 TESTED AT [facility] [address] (test gzhg=0548) [facility] [address] [id number] 08:10:00 Test Item Value Reference Range Comments MAGNESIUM (BEAKER) (test huxa=649) 1.4 mg/dL 1.6-2.6 [id number] 08:10:00 Test Item Value Reference Range Comments PHOSPHORUS (BEAKER) (test zzww=537) 3.3 mg/dL 2.3-4.7 BASIC METABOLIC [id number] 07:41:00 Test Item Value Reference Range Comments SODIUM (BEAKER) (test 137 meq/L 136-145 vyta=892) POTASSIUM (BEAKER) (test 3.1 meq/L 3.5-5.1 dqma=225) CHLORIDE (BEAKER) (test 103 meq/L 98-107 nitk=010) CO2 (BEAKER) (test 26 meq/L 22-29 uuxb=461) BLOOD UREA NITROGEN 3 mg/dL 7-21 (BEAKER) (test smgp=441) CREATININE (BEAKER) (test 0.60 mg/dL 0.57-1.25 ysqv=893) GLUCOSE RANDOM (BEAKER) 124 mg/dL 70-105 (test qpia=320) CALCIUM (BEAKER) (test 9.4 mg/dL 8.4-10.2 urwe=016) EGFR (BEAKER) (test 148 mL/min/1.73 sq m ESTIMATED GFR IS NOT sbrt=4307) ACCURATE CREATININE CLEARANCE IN PREDICTING GLOMERULAR FILTRATION RATE. ESTIMATED GFR IS NOT APPLICABLE FOR DIALYSIS PATIENTS. KETONE, [id number] 07:13:00 Test Item Value Reference Range Comments KETONES, BLOOD (BEAKER) (test zhpn=7455) 0.0 mmol/L <0.4 BLOOD GAS, [id number] 07:10:00 Test Item Value Reference Range Comments PH VENOUS (BEAKER) (test txow=464) 7.42 7.32-7.42 PCO2 VENOUS (BEAKER) (test dvov=064) 47 mmHg 41-51 PO2 VENOUS (BEAKER) (test ijyx=900) 57 mmHg 25-40 O2 SATURATION VENOUS (BEAKER) (test hgwb=751) 90.2 % 40.0-70.0 HCO3 VENOUS (BEAKER) (test jbcd=469) 30 mmol/L 21-29 BASE EXCESS VENOUS (BEAKER) (test tlxx=564) 4.9 mmol/L -2.0-3.0 PATIENT TEMPERATURE (BEAKER) (test njdl=0014) 37.0 C FIO2 (BEAKER) (test rvvj=5245) 21.0 % POCT-GLUCOSE [id number] 06:51:00 Test Item Value Reference Range Comments POC-GLUCOSE METER (BEAKER) 134 mg/dL 70-110 TESTED AT [facility] [address] [facility] (test kzpz=8073) [facility] [address] BASIC METABOLIC [id number] 06:32:00 Test Item Value Reference Range Comments SODIUM (BEAKER) (test 129 meq/L 136-145 fobk=286) POTASSIUM (BEAKER) (test 3.5 meq/L 3.5-5.1 lqjf=022) CHLORIDE (BEAKER) (test 97 meq/L 98-107 dvhq=987) CO2 (BEAKER) (test 18 meq/L 22-29 xldn=859) BLOOD UREA NITROGEN 4 mg/dL 7-21 (BEAKER) (test omeq=285) CREATININE (BEAKER) (test 1.04 mg/dL 0.57-1.25 gpgv=227) GLUCOSE RANDOM (BEAKER) 753 mg/dL 70-105 (test iefj=402) CALCIUM (BEAKER) (test 8.9 mg/dL 8.4-10.2 uhnd=708) EGFR (BEAKER) (test 78 mL/min/1.73 sq m ESTIMATED GFR IS NOT tgun=8813) ACCURATE CREATININE CLEARANCE IN PREDICTING GLOMERULAR FILTRATION RATE. ESTIMATED GFR IS NOT APPLICABLE FOR DIALYSIS PATIENTS. URINALYSIS W/ REFLEX URINE [id number] 06:19:00 Test Item Value Reference Range Comments COLOR (BEAKER) (test tgcb=768) Colorless CLARITY (BEAKER) (test befw=819) Clear SPECIFIC GRAVITY UA (BEAKER) (test iwke=534) 1.009 1.001-1.035 PH UA (BEAKER) (test pymu=228) 6.0 5.0-8.0 PROTEIN UA (BEAKER) (test isqt=140) Negative Negative GLUCOSE UA (BEAKER) (test iolq=399) >1000 mg/dL Negative KETONES UA (BEAKER) (test nqrd=881) Negative Negative BILIRUBIN UA (BEAKER) (test evkz=789) Negative Negative BLOOD UA (BEAKER) (test ptox=214) Small Negative NITRITE UA (BEAKER) (test kkys=796) Negative Negative LEUKOCYTE ESTERASE UA (BEAKER) (test vsrb=153) Negative Negative UROBILINOGEN UA (BEAKER) (test zqsh=081) 0.2 mg/dL 0.2-1.0 RBC UA (BEAKER) (test nore=141) < /HPF WBC UA (BEAKER) (test izgu=010) 1 /HPF BACTERIA (BEAKER) (test igdp=965) Rare SQUAMOUS EPITHELIAL (BEAKER) (test hgmu=929) 4 /HPF AMORPHOUS CRYSTALS (BEAKER) (test wbtl=0111) Rare SOURCE(BEAKER) (test zxsf=8292) SCREEN, [id number] 06:07:00 Test Item Value Reference Range Comments TEST URINE (BEAKER) (test menb=723) Negative [id number] 05:41:00 Test Item Value Reference Range Comments LIPASE (BEAKER) (test cfje=132) < U/L 8-78 HEPATIC FUNCTION [id number] 05:40:00 Test Item Value Reference Range Comments TOTAL PROTEIN (BEAKER) (test rean=822) 7.0 gm/dL 6.0-8.3 ALBUMIN (BEAKER) (test gful=1299) 2.8 g/dL 3.5-5.0 BILIRUBIN TOTAL (BEAKER) (test vobk=907) < mg/dL 0.2-1.2 BILIRUBIN DIRECT (BEAKER) (test zhek=188) 0.1 mg/dL 0.1-0.5 ALKALINE PHOSPHATASE (BEAKER) (test ouqb=637) 122 U/L 40-150 AST (SGOT) (BEAKER) (test hnyg=865) 9 U/L 5-34 ALT (SGPT) (BEAKER) (test bktb=312) 7 U/L 6-55 CBC W/PLT COUNT & AUTO [id number] 05:10:00 Test Item Value Reference Range Comments WHITE BLOOD CELL COUNT (BEAKER) (test bnkr=985) 5.9 K/ L 3.5-10.5 RED BLOOD CELL COUNT (BEAKER) (test hqhi=526) 4.44 M/ L 3.93-5.22 HEMOGLOBIN (BEAKER) (test fvou=833) 11.8 GM/DL 11.2-15.7 HEMATOCRIT (BEAKER) (test ybea=204) 39.2 % 34.1-44.9 MEAN CORPUSCULAR VOLUME (BEAKER) (test elqc=844) 88.3 fL 79.4-94.8 MEAN CORPUSCULAR HEMOGLOBIN (BEAKER) (test 26.6 pg 25.6-32.2 inkb=470) MEAN CORPUSCULAR HEMOGLOBIN CONC (BEAKER) (test 30.1 GM/DL 32.2-35.5 eqxt=261) RED CELL DISTRIBUTION WIDTH (BEAKER) (test 14.9 % 11.7-14.4 mqpk=604) PLATELET COUNT (BEAKER) (test chpy=675) 294 K/CU MM 150-450 MEAN PLATELET VOLUME (BEAKER) (test dyvt=733) 11.9 fL 9.4-12.3 NUCLEATED RED BLOOD CELLS (BEAKER) (test 0 /100 WBC 0-0 bssx=487) NEUTROPHILS RELATIVE PERCENT (BEAKER) (test 67 % inaw=746) LYMPHOCYTES RELATIVE PERCENT (BEAKER) (test 26 % bryz=096) MONOCYTES RELATIVE PERCENT (BEAKER) (test 5 % qebx=802) EOSINOPHILS RELATIVE PERCENT (BEAKER) (test 2 % invh=795) BASOPHILS RELATIVE PERCENT (BEAKER) (test 0 % vzdu=794) NEUTROPHILS ABSOLUTE COUNT (BEAKER) (test 3.99 K/ L 1.56-6.13 xdul=960) LYMPHOCYTES ABSOLUTE COUNT (BEAKER) (test 1.51 K/ L 1.18-3.74 blph=702) MONOCYTES ABSOLUTE COUNT (BEAKER) (test 0.29 K/ L 0.24-0.36 lspr=457) EOSINOPHILS ABSOLUTE COUNT (BEAKER) (test 0.11 K/ L 0.04-0.36 jthc=416) BASOPHILS ABSOLUTE COUNT (BEAKER) (test 0.02 K/ L 0.01-0.08 viyk=001) IMMATURE GRANULOCYTES-RELATIVE PERCENT (BEAKER) 0 % 0-1 (test fjum=3691) AFB CULTURE + [id number] 12:29:00 Test Item Value Reference Range Comments CULTURE (BEAKER) (test No acid-fast bacilli isolated zrhi=4492) in 42 days AFB SMEAR (BEAKER) (test No acid fast bacilli seen fovp=389) FUNGUS CULTURE + [id number] 09:42:00 Test Item Value Reference Range Comments CULTURE (BEAKER) (test <1+ Clau dubliniensis lqxp=4649) FUNGUS SMEAR (BEAKER) <1+ budding yeast (test ough=1203) See smear results.POCT-GLUCOSE [id number] 14:27:00 Test Item Value Reference Range Comments POC-GLUCOSE METER (BEAKER) 255 mg/dL 70-110 TESTED AT [address] (test vggo=2706) [place] [id number] POCT-GLUCOSE [id number] 11:59:00 Test Item Value Reference Range Comments POC-GLUCOSE METER (BEAKER) 157 mg/dL 70-110 TESTED AT [address] (test erde=4413) [place] [id number] POCT-GLUCOSE [id number] 08:51:00 Test Item Value Reference Range Comments POC-GLUCOSE METER (BEAKER) 57 mg/dL 70-110 Notified JORDON STAPLETON/TESTED AT [facility] (test orjh=4322) [address] [place] [address] [id number] 05:55:00 Test Item Value Reference Range Comments BLOOD UREA NITROGEN (BEAKER) (test sjux=316) 18 mg/dL 7-21 [id number] 05:55:00 Test Item Value Reference Range Comments CREATININE (BEAKER) (test 0.69 mg/dL 0.57-1.25 ewna=837) EGFR (BEAKER) (test 126 mL/min/1.73 sq m ESTIMATED GFR IS NOT keda=2038) ACCURATE CREATININE CLEARANCE IN PREDICTING GLOMERULAR FILTRATION RATE. ESTIMATED GFR IS NOT APPLICABLE FOR DIALYSIS PATIENTS. POCT-GLUCOSE [id number] 21:24:00 Test Item Value Reference Range Comments POC-GLUCOSE METER (BEAKER) 139 mg/dL 70-110 TESTED AT [address] (test bbdn=3798) [place] [id number] POCT-GLUCOSE [id number] 17:18:00 Test Item Value Reference Range Comments POC-GLUCOSE METER (BEAKER) 148 mg/dL 70-110 TESTED AT [facility] [address] [facility] (test rlbs=2518) [facility] [address] POCT-GLUCOSE [id number] 12:36:00 Test Item Value Reference Range Comments POC-GLUCOSE METER (BEAKER) 104 mg/dL 70-110 TESTED AT [facility] [address] [facility] (test zert=6580) [place] [id number] CF RESPIRATORY [id number] 11:18:00 Test Item Value Reference Range Comments CULTURE (BEAKER) (test mcmv=4191) Amikacin (test code=1) Susceptible 0-16 , Resistant <0 or >16 Aztreonam (test Susceptible 0-8 , code=32) Resistant <0 or >8 Cefepime (test code=51) Susceptible 0-8 , Resistant <0 or >8 Ceftazidime (test Susceptible 0-8 , code=27) Resistant <0 or >8 Ciprofloxacin (test Susceptible 0-1 , code=7) Resistant <0 or >1 Doripenem (test Susceptible 0-2 , ijnx=983) Resistant <0 or >2 Gentamicin (test Susceptible [...] >4 CULTURE (BEAKER) (test PSEUDOMONAS 4+ Pseudomonas qovu=5263) AERUGINOSA aeruginosa (MUCOID-PHENOTYPE) Amikacin (test code=1) Susceptible 0-16 , Resistant <0 or >16 Aztreonam (test Susceptible 0-8 , code=32) Resistant <0 or >8 Cefepime (test code=51) Susceptible 0-8 , Resistant <0 or >8 Ceftazidime (test Susceptible 0-8 , code=27) Resistant <0 or >8 Ciprofloxacin (test Susceptible 0-1 , code=7) Resistant <0 or >1 Doripenem (test Susceptible 0-2 , kmzd=797) Resistant <0 or >2 Gentamicin (test Susceptible [...] or >4 CULTURE (BEAKER) (test 4+ Pseudomonas uyxl=4763) aeruginosa (Mucoid-phenotype) CULTURE (BEAKER) (test 1+ Streptococcus not zwhq=8209) group A beta hemolytic 4+ Normal respiratory derick presentPOCT-GLUCOSE [id number] 08:50:00 Test Item Value Reference Range Comments POC-GLUCOSE METER (BEAKER) 74 mg/dL 70-110 TESTED AT [address] (test phih=6303) [place] [address] [id number] 06:55:00 Test Item Value Reference Range Comments BLOOD UREA NITROGEN (BEAKER) (test bxnd=753) 25 mg/dL 7-21 [id number] 06:55:00 Test Item Value Reference Range Comments CREATININE (BEAKER) (test 0.77 mg/dL 0.57-1.25 ubuv=126) EGFR (BEAKER) (test 111 mL/min/1.73 sq m ESTIMATED GFR IS NOT dqzv=8624) ACCURATE CREATININE CLEARANCE IN PREDICTING GLOMERULAR FILTRATION RATE. ESTIMATED GFR IS NOT APPLICABLE FOR DIALYSIS PATIENTS. POCT-GLUCOSE [id number] 21:23:00 Test Item Value Reference Range Comments POC-GLUCOSE METER (BEAKER) 226 mg/dL 70-110 TESTED AT [address] (test axrc=4077) [place] [address] POCT-GLUCOSE [id number] 17:48:00 Test Item Value Reference Range Comments POC-GLUCOSE METER (BEAKER) 207 mg/dL 70-110 TESTED AT [address] (test ifks=4369) [place] [id number] POCT-GLUCOSE [id number] 13:40:00 Test Item Value Reference Range Comments POC-GLUCOSE METER (BEAKER) 63 mg/dL 70-110 TESTED AT [address] (test wtbk=2996) [place] [address] POCT-GLUCOSE [id number] 12:57:00 Test Item Value Reference Range Comments POC-GLUCOSE METER (BEAKER) 42 mg/dL 70-110 Notified JORDON STAPLTEON/TESTED AT [facility] (test qjiu=3640) [address] [place] [address] POCT-GLUCOSE [id number] 08:52:00 Test Item Value Reference Range Comments POC-GLUCOSE METER (BEAKER) 191 mg/dL 70-110 TESTED AT [address] (test xzlm=6159) [place] [address] [id number] 07:08:00 Test Item Value Reference Range Comments BLOOD UREA NITROGEN (BEAKER) (test fknk=113) 18 mg/dL 7-21 [id number] 07:08:00 Test Item Value Reference Range Comments CREATININE (BEAKER) (test 0.75 mg/dL 0.57-1.25 icga=136) EGFR (BEAKER) (test 114 mL/min/1.73 sq m ESTIMATED GFR IS NOT zfaz=5000) ACCURATE CREATININE CLEARANCE IN PREDICTING GLOMERULAR FILTRATION RATE. ESTIMATED GFR IS NOT APPLICABLE FOR DIALYSIS PATIENTS. POCT-GLUCOSE [id number] 21:41:00 Test Item Value Reference Range Comments POC-GLUCOSE METER (BEAKER) 361 mg/dL 70-110 TESTED AT [address] (test fiem=7735) [place] [id number] POCT-GLUCOSE [id number] 18:53:00 Test Item Value Reference Range Comments POC-GLUCOSE METER (BEAKER) 96 mg/dL 70-110 TESTED AT [address] (test gkzd=8297) [place] [id number] POCT-GLUCOSE [id number] 18:18:00 Test Item Value Reference Range Comments POC-GLUCOSE METER (BEAKER) 68 mg/dL 70-110 Notified JORDON STAPLETON/TESTED AT [facility] (test orqm=1032) [address] [place] [address] POCT-GLUCOSE [id number] 13:46:00 Test Item Value Reference Range Comments POC-GLUCOSE METER (BEAKER) 142 mg/dL 70-110 TESTED AT [address] (test ogma=9864) [place] [address] POCT-GLUCOSE [id number] 12:51:00 Test Item Value Reference Range Comments POC-GLUCOSE METER (BEAKER) 49 mg/dL 70-110 Notified JORDON STAPLETON/TESTED AT [facility] (test szkc=3930) [address] [place] [address] POCT-GLUCOSE [id number] 08:07:00 Test Item Value Reference Range Comments POC-GLUCOSE METER (BEAKER) 144 mg/dL 70-110 TESTED AT [address] (test wxsl=1269) [place] [address] [id number] 07:32:00 Test Item Value Reference Range Comments BLOOD UREA NITROGEN (BEAKER) (test nvcw=643) 19 mg/dL 7- [id number] 07:32:00 Test Item Value Reference Range Comments CREATININE (BEAKER) (test 0.73 mg/dL 0.57-1.25 iywp=108) EGFR (BEAKER) (test 118 mL/min/1.73 sq m ESTIMATED GFR IS NOT gege=5690) ACCURATE CREATININE CLEARANCE IN PREDICTING GLOMERULAR FILTRATION RATE. ESTIMATED GFR IS NOT APPLICABLE FOR DIALYSIS PATIENTS. POCT-GLUCOSE [id number] 21:59:00 Test Item Value Reference Range Comments POC-GLUCOSE METER (BEAKER) 211 mg/dL 70-110 TESTED AT [address] (test zxqd=2395) [place] [address] POCT-GLUCOSE [id number] 18:20:00 Test Item Value Reference Range Comments POC-GLUCOSE METER (BEAKER) 178 mg/dL 70-110 TESTED AT [address] (test twlk=4833) [place] [address] [id number] 15:05:00 Test Item Value Reference Range Comments BLOOD UREA NITROGEN (BEAKER) (test jbnd=756) 15 mg/dL 7-21 [id number] 15:05:00 Test Item Value Reference Range Comments CREATININE (BEAKER) (test 0.86 mg/dL 0.57-1.25 Specimen slightly xahy=819) hemolyzed EGFR (BEAKER) (test 97 mL/min/1.73 sq m ESTIMATED GFR IS NOT qgto=4560) ACCURATE CREATININE CLEARANCE IN PREDICTING GLOMERULAR FILTRATION RATE. ESTIMATED GFR IS NOT APPLICABLE FOR DIALYSIS PATIENTS. POCT-GLUCOSE [id number] 12:02:00 Test Item Value Reference Range Comments POC-GLUCOSE METER (BEAKER) 357 mg/dL 70-110 TESTED AT [address] (test gfsa=4944) [facility] [address] RAD, CHEST, 2 [id number] 10:11:00Reason for exam:->Cystic FibrosisShould this be performed [...] Impression: Stable findingsof cystic fibrosis. Signed: Everardo Castellanoseport Verified Date/Time: 09/24/2017 10:11:13 Reading Location: [facility] Radiology Reading Room Electronically signed by: EVERARDO CASTELLANOS M.D. on 09/24 10:11 AMPOCT-GLUCOSE [id number] 08:09:00 Test Item Value Reference Range Comments POC-GLUCOSE METER (BEAKER) 331 mg/dL 70-110 TESTED AT [address] (test sfel=6975) [facility] [address] POCT-GLUCOSE [id number] 21:28:00 Test Item Value Reference Range Comments POC-GLUCOSE METER (BEAKER) 473 mg/dL 70-110 TESTED AT [address] (test gjzh=9525) [place] [address] POCT-GLUCOSE [id number] 18:31:00 Test Item Value Reference Range Comments POC-GLUCOSE METER (BEAKER) 444 mg/dL 70-110 TESTED AT [address] (test gmfu=1322) [facility] [address] HEMOGLOBIN [id number] 17:51:00 Test Item Value Reference Range Comments HEMOGLOBIN A1C (BEAKER) (test iwqn=776) 13.7 % 4.3-6.1 POCT-GLUCOSE [id number] 17:16:00 Test Item Value Reference Range Comments POC-GLUCOSE METER (BEAKER) 496 mg/dL 70-110 Notified RN /TESTED AT [facility] (test klcr=0758) [address] [place] [address] SPIN/CONCENTRATION [id number] 12:37:00 Test Item Value Reference Range Comments CONCENTRATION CHARGED (BEAKER) (test bhht=1643) Done POCT-GLUCOSE [id number] 12:28:00 Test Item Value Reference Range Comments POC-GLUCOSE METER (BEAKER) 492 mg/dL 70-110 Notified RN MD/TESTED AT [facility] (test yomp=7704) [address] [place] [address] [id number] 07:45:00 Test Item Value Reference Range Comments BLOOD UREA NITROGEN (BEAKER) (test hrih=048) 10 mg/dL 7-21 [id number] 07:45:00 Test Item Value Reference Range Comments CREATININE (BEAKER) (test 0.76 mg/dL 0.57-1.25 sdai=551) EGFR (BEAKER) (test 112 mL/min/1.73 sq m ESTIMATED GFR IS NOT ancx=9627) ACCURATE CREATININE CLEARANCE IN PREDICTING GLOMERULAR FILTRATION RATE. ESTIMATED GFR IS NOT APPLICABLE FOR DIALYSIS PATIENTS. POCT-GLUCOSE [id number] 07:00:00 Test Item Value Reference Range Comments POC-GLUCOSE METER (BEAKER) 361 mg/dL 70-110 TESTED AT [address] (test cvup=6599) [facility] [address] [id number] 23:30:00 Test Item Value Reference Range Comments PHOSPHORUS (BEAKER) (test qioi=117) 3.8 mg/dL 2.3-4.7 [id number] 23:30:00 Test Item Value Reference Range Comments MAGNESIUM (BEAKER) (test pvpc=797) 1.5 mg/dL 1.6-2.6 COMPREHENSIVE METABOLIC [id number] 23:30:00 Test Item Value Reference Range Comments TOTAL PROTEIN (BEAKER) 7.3 gm/dL 6.0-8.3 (test uzuv=561) ALBUMIN (BEAKER) (test 3.0 g/dL 3.5-5.0 rffu=8358) ALKALINE PHOSPHATASE 136 U/L 40-150 (BEAKER) (test oucu=910) BILIRUBIN TOTAL (BEAKER) < mg/dL 0.2-1.2 (test akhm=271) SODIUM (BEAKER) (test 138 meq/L 136-145 obpc=812) POTASSIUM (BEAKER) (test 4.5 meq/L 3.5-5.1 bhma=360) CHLORIDE (BEAKER) (test 102 meq/L 98-107 inpu=014) CO2 (BEAKER) (test 28 meq/L 22-29 ckaj=113) BLOOD UREA NITROGEN 8 mg/dL 7-21 (BEAKER) (test nctp=590) CREATININE (BEAKER) (test 0.72 mg/dL 0.57-1.25 irmc=922) GLUCOSE RANDOM (BEAKER) 183 mg/dL 70-105 (test pbcl=104) CALCIUM (BEAKER) (test 9.0 mg/dL 8.4-10.2 fhol=372) AST (SGOT) (BEAKER) (test 19 U/L 5-34 mpnk=337) ALT (SGPT) (BEAKER) (test 7 U/L 6-55 nfgr=225) EGFR (BEAKER) (test 120 mL/min/1.73 sq ESTIMATED GFR IS NOT evey=1793) m ACCURATE CREATININE CLEARANCE IN PREDICTING GLOMERULAR FILTRATION RATE. ESTIMATED GFR IS NOT APPLICABLE FOR DIALYSIS PATIENTS. GAMMA GLUTAMYL TRANSFERASE (GGT)2017-09-22 23:30:00 Test Item Value Reference Range Comments GAMMA GLUTAMYL TRANSFERASE (BEAKER) (test cqcy=234) 20 U/L 9-64 CBC W/PLT COUNT & AUTO [id number] 23:06:00 Test Item Value Reference Range Comments WHITE BLOOD CELL COUNT (BEAKER) (test czku=817) 6.3 K/ L 3.5-10.5 RED BLOOD CELL COUNT (BEAKER) (test xdxp=663) 4.23 M/ L 3.93-5.22 HEMOGLOBIN (BEAKER) (test piwt=297) 10.9 GM/DL 11.2-15.7 HEMATOCRIT (BEAKER) (test uthi=725) 36.2 % 34.1-44.9 MEAN CORPUSCULAR VOLUME (BEAKER) (test eteb=745) 85.6 fL 79.4-94.8 MEAN CORPUSCULAR HEMOGLOBIN (BEAKER) (test 25.8 pg 25.6-32.2 ashe=734) MEAN CORPUSCULAR HEMOGLOBIN CONC (BEAKER) (test 30.1 GM/DL 32.2-35.5 ypno=875) RED CELL DISTRIBUTION WIDTH (BEAKER) (test 14.9 % 11.7-14.4 lgvt=171) PLATELET COUNT (BEAKER) (test gugj=147) 390 K/CU MM 150-450 MEAN PLATELET VOLUME (BEAKER) (test pwlc=664) 11.9 fL 9.4-12.3 NUCLEATED RED BLOOD CELLS (BEAKER) (test 0 /100 WBC 0-0 ttfq=341) NEUTROPHILS RELATIVE PERCENT (BEAKER) (test 55 % dqvq=330) LYMPHOCYTES RELATIVE PERCENT (BEAKER) (test 24 % blzn=054) MONOCYTES RELATIVE PERCENT (BEAKER) (test 12 % eejo=226) EOSINOPHILS RELATIVE PERCENT (BEAKER) (test 7 % wcza=373) BASOPHILS RELATIVE PERCENT (BEAKER) (test 1 % ylzs=286) NEUTROPHILS ABSOLUTE COUNT (BEAKER) (test 3.48 K/ L 1.56-6.13 wtfj=939) LYMPHOCYTES ABSOLUTE COUNT (BEAKER) (test 1.53 K/ L 1.18-3.74 sqmm=357) MONOCYTES ABSOLUTE COUNT (BEAKER) (test 0.77 K/ L 0.24-0.36 hglb=291) EOSINOPHILS ABSOLUTE COUNT (BEAKER) (test 0.46 K/ L 0.04-0.36 wmnv=065) BASOPHILS ABSOLUTE COUNT (BEAKER) (test 0.04 K/ L 0.01-0.08 jgsm=206) IMMATURE GRANULOCYTES-RELATIVE PERCENT (BEAKER) 0 % 0-1 (test drfz=4581) POCT-GLUCOSE [id number] 21:16:00 Test Item Value Reference Range Comments POC-GLUCOSE METER (BEAKER) 168 mg/dL 70-110 TESTED AT [facility] [address] [facility] (test xbcx=3021) [facility] [address] AFB CULTURE + [id number] 13:04:00 Test Item Value Reference Range Comments CULTURE (BEAKER) (test No acid-fast bacilli isolated grqq=0354) in 42 days AFB SMEAR (BEAKER) (test No acid fast bacilli seen nhqi=626) FUNGUS CULTURE + [id number] 12:05:00 Test Item Value Reference Range Comments CULTURE (BEAKER) (test 2+ Clau dubliniensis rdrb=7457) FUNGUS SMEAR (BEAKER) (test No fungi seen wlwv=7339) POCT-GLUCOSE [id number] 17:17:00 Test Item Value Reference Range Comments POC-GLUCOSE METER (BEAKER) 176 mg/dL 70-110 TESTED AT [address] (test goub=9333) [place] [id number] POCT-GLUCOSE [id number] 11:57:00 Test Item Value Reference Range Comments POC-GLUCOSE METER (BEAKER) 392 mg/dL 70-110 Notified JORDON STAPLETON/TESTED AT [facility] (test wjps=6075) [address] [place] [address] POCT-GLUCOSE [id number] 08:53:00 Test Item Value Reference Range Comments POC-GLUCOSE METER (BEAKER) 226 mg/dL 70-110 TESTED AT [address] (test ilbm=7961) [facility] [address] POCT-GLUCOSE [id number] 08:53:00 Test Item Value Reference Range Comments POC-GLUCOSE METER (BEAKER) 67 mg/dL 70-110 TESTED AT [address] (test xypp=8747) [place] [id number] BUN AND [id number] 07:15:00 Test Item Value Reference Range Comments BLOOD UREA NITROGEN 20 mg/dL 7-21 (BEAKER) (test puas=203) CREATININE (BEAKER) (test 0.64 mg/dL 0.57-1.25 oonu=732) EGFR (BEAKER) (test 138 mL/min/1.73 sq m ESTIMATED GFR IS NOT gsfi=6096) ACCURATE CREATININE CLEARANCE IN PREDICTING GLOMERULAR FILTRATION RATE. ESTIMATED GFR IS NOT APPLICABLE FOR DIALYSIS PATIENTS. BASIC METABOLIC [id number] 07:15:00 Test Item Value Reference Range Comments SODIUM (BEAKER) (test 139 meq/L 136-145 xkfh=383) POTASSIUM (BEAKER) (test 4.8 meq/L 3.5-5.1 ghjm=731) CHLORIDE (BEAKER) (test 103 meq/L 98-107 kddo=667) CO2 (BEAKER) (test 28 meq/L 22-29 zslf=945) BLOOD UREA NITROGEN 20 mg/dL 7-21 (BEAKER) (test qywq=311) CREATININE (BEAKER) (test 0.64 mg/dL 0.57-1.25 eusp=582) GLUCOSE RANDOM (BEAKER) 82 mg/dL 70-105 (test khvc=468) CALCIUM (BEAKER) (test 9.0 mg/dL 8.4-10.2 wlgu=981) EGFR (BEAKER) (test 138 mL/min/1.73 sq m ESTIMATED GFR IS NOT dcse=5831) ACCURATE CREATININE CLEARANCE IN PREDICTING GLOMERULAR FILTRATION RATE. ESTIMATED GFR IS NOT APPLICABLE FOR DIALYSIS PATIENTS. CF RESPIRATORY [id number] 03:54:00 Test Item Value Reference Range Comments CULTURE (BEAKER) (test 4+ Pseudomonas aeruginosa qysm=0002) CULTURE (BEAKER) (test PSEUDOMONAS 4+ Pseudomonas wdzr=5292) AERUGINOSA aeruginosamucoid colony typeof a third typeThis is an appended report. These organism results have been appended to a previously final verified report. Amikacin (test code=1) Aztreonam (test code=32) Cefepime (test code=51) Ceftazidime (test code=27) Ciprofloxacin (test code=7) Doripenem (test ocfy=789) Gentamicin (test code=18) Imipenem (test code=19) Levofloxacin (test code=22) Meropenem (test code=34) Piperacillin (test code=24) Piperacillin + Tazobactam (test code=29) Tobramycin (test code=25) CULTURE (BEAKER) (test PSEUDOMONAS 4+ Pseudomonas kaiy=1649) AERUGINOSA aeruginosaof a second typemucoid colony type Amikacin (test code=1) Aztreonam (test code=32) Cefepime (test code=51) Ceftazidime (test code=27) Ciprofloxacin (test code=7) Doripenem (test bosv=623) Gentamicin (test code=18) Imipenem (test code=19) Levofloxacin (test code=22) Meropenem (test code=34) Piperacillin (test code=24) Piperacillin + Tazobactam (test code=29) Tobramycin (test code=25) 4+ Normal respiratory derick presentPOCT-GLUCOSE [id number] 22:30:00 Test Item Value Reference Range Comments POC-GLUCOSE METER (BEAKER) 136 mg/dL 70-110 TESTED AT [facility] [address] [facility] (test vfvo=4569) [facility] [address] POCT-GLUCOSE [id number] 17:29:00 Test Item Value Reference Range Comments POC-GLUCOSE METER (BEAKER) 148 mg/dL 70-110 TESTED AT [address] (test tqzs=9575) [facility] [address] POCT-GLUCOSE [id number] 12:35:00 Test Item Value Reference Range Comments POC-GLUCOSE METER (BEAKER) 209 mg/dL 70-110 TESTED AT [address] (test sasg=4271) [facility] [address] POCT-GLUCOSE [id number] 08:39:00 Test Item Value Reference Range Comments POC-GLUCOSE METER (BEAKER) 122 mg/dL 70-110 TESTED AT [address] (test qqvh=2875) [facility] [address] BUN AND [id number] 07:26:00 Test Item Value Reference Range Comments BLOOD UREA NITROGEN 21 mg/dL 7-21 (BEAKER) (test jjno=436) CREATININE (BEAKER) (test 0.69 mg/dL 0.57-1.25 mgrb=725) EGFR (BEAKER) (test 127 mL/min/1.73 sq m ESTIMATED GFR IS NOT glsd=6902) ACCURATE CREATININE CLEARANCE IN PREDICTING GLOMERULAR FILTRATION RATE. ESTIMATED GFR IS NOT APPLICABLE FOR DIALYSIS PATIENTS. BASIC METABOLIC [id number] 07:26:00 Test Item Value Reference Range Comments SODIUM (BEAKER) (test 137 meq/L 136-145 utry=546) POTASSIUM (BEAKER) (test 4.6 meq/L 3.5-5.1 kdqx=661) CHLORIDE (BEAKER) (test 97 meq/L 98-107 omqo=727) CO2 (BEAKER) (test 30 meq/L 22-29 ymip=625) BLOOD UREA NITROGEN 21 mg/dL 7-21 (BEAKER) (test zscj=295) CREATININE (BEAKER) (test 0.69 mg/dL 0.57-1.25 xykr=034) GLUCOSE RANDOM (BEAKER) 110 mg/dL 70-105 (test mjec=088) CALCIUM (BEAKER) (test 9.1 mg/dL 8.4-10.2 fdxy=092) EGFR (BEAKER) (test 127 mL/min/1.73 sq m ESTIMATED GFR IS NOT hfpf=5392) ACCURATE CREATININE CLEARANCE IN PREDICTING GLOMERULAR FILTRATION RATE. ESTIMATED GFR IS NOT APPLICABLE FOR DIALYSIS PATIENTS. POCT-GLUCOSE [id number] 21:03:00 Test Item Value Reference Range Comments POC-GLUCOSE METER (BEAKER) 265 mg/dL 70-110 TESTED AT [address] (test qnvk=5749) [facility] [address] POCT-GLUCOSE [id number] 17:18:00 Test Item Value Reference Range Comments POC-GLUCOSE METER (BEAKER) 164 mg/dL 70-110 TESTED AT [address] (test qjgs=9008) [place] [id number] POCT-GLUCOSE [id number] 13:11:00 Test Item Value Reference Range Comments POC-GLUCOSE METER (BEAKER) 101 mg/dL 70-110 TESTED AT [address] (test cjyj=3813) [place] [id number] POCT-GLUCOSE [id number] 10:02:00 Test Item Value Reference Range Comments POC-GLUCOSE METER (BEAKER) 104 mg/dL 70-110 TESTED AT [address] (test ckgm=7754) [facility] [address] BASIC METABOLIC [id number] 08:46:00 Test Item Value Reference Range Comments SODIUM (BEAKER) (test 138 meq/L 136-145 vktn=216) POTASSIUM (BEAKER) (test 4.1 meq/L 3.5-5.1 xgnh=358) CHLORIDE (BEAKER) (test 102 meq/L 98-107 swkv=222) CO2 (BEAKER) (test 27 meq/L 22-29 mycc=289) BLOOD UREA NITROGEN 15 mg/dL 7-21 (BEAKER) (test yjqm=601) CREATININE (BEAKER) (test 0.62 mg/dL 0.57-1.25 wlby=909) GLUCOSE RANDOM (BEAKER) 66 mg/dL 70-105 (test qndg=452) CALCIUM (BEAKER) (test 8.9 mg/dL 8.4-10.2 cvrn=040) EGFR (BEAKER) (test 143 mL/min/1.73 sq m ESTIMATED GFR IS NOT okkz=5937) ACCURATE CREATININE CLEARANCE IN PREDICTING GLOMERULAR FILTRATION RATE. ESTIMATED GFR IS NOT APPLICABLE FOR DIALYSIS PATIENTS. BUN AND [id number] 05:18:00 Test Item Value Reference Range Comments BLOOD UREA NITROGEN 17 mg/dL 7-21 (BEAKER) (test nlab=501) CREATININE (BEAKER) (test 0.70 mg/dL 0.57-1.25 jpkq=184) EGFR (BEAKER) (test 125 mL/min/1.73 sq m ESTIMATED GFR IS NOT ftas=2501) ACCURATE CREATININE CLEARANCE IN PREDICTING GLOMERULAR FILTRATION RATE. ESTIMATED GFR IS NOT APPLICABLE FOR DIALYSIS PATIENTS. POCT-GLUCOSE [id number] 21:17:00 Test Item Value Reference Range Comments POC-GLUCOSE METER (BEAKER) 399 mg/dL 70-110 Notified JORDON STAPLETON/TESTED AT [facility] (test fhdz=3665) [address] [place] [address] POCT-GLUCOSE [id number] 17:37:00 Test Item Value Reference Range Comments POC-GLUCOSE METER (BEAKER) 416 mg/dL 70-110 TESTED AT [address] (test ymjh=1925) [place] [address] POCT-GLUCOSE [id number] 12:45:00 Test Item Value Reference Range Comments POC-GLUCOSE METER (BEAKER) 291 mg/dL 70-110 TESTED AT [address] (test ceqv=0127) [place] [address] POCT-GLUCOSE [id number] 07:12:00 Test Item Value Reference Range Comments POC-GLUCOSE METER (BEAKER) 237 mg/dL 70-110 TESTED AT [address] (test dcpm=5463) [place] [address] BUN AND [id number] 04:32:00 Test Item Value Reference Range Comments BLOOD UREA NITROGEN 15 mg/dL 7-21 (BEAKER) (test dksj=241) CREATININE (BEAKER) (test 0.63 mg/dL 0.57-1.25 cwgf=750) EGFR (BEAKER) (test 141 mL/min/1.73 sq m ESTIMATED GFR IS NOT gzvf=8955) ACCURATE CREATININE CLEARANCE IN PREDICTING GLOMERULAR FILTRATION RATE. ESTIMATED GFR IS NOT APPLICABLE FOR DIALYSIS PATIENTS. POCT-GLUCOSE [id number] 21:34:00 Test Item Value Reference Range Comments POC-GLUCOSE METER (BEAKER) 321 mg/dL 70-110 Notified RN MD/TESTED AT [facility] (test bfhi=7581) [address] [place] [address] POCT-GLUCOSE [id number] 17:53:00 Test Item Value Reference Range Comments POC-GLUCOSE METER (BEAKER) 392 mg/dL 70-110 TESTED AT [address] (test xhqg=0721) [place] [address] POCT-GLUCOSE [id number] 12:39:00 Test Item Value Reference Range Comments POC-GLUCOSE METER (BEAKER) 306 mg/dL 70-110 TESTED AT [address] (test haxt=7059) [place] [address] POCT-GLUCOSE [id number] 08:24:00 Test Item Value Reference Range Comments POC-GLUCOSE METER (BEAKER) 304 mg/dL 70-110 TESTED AT [address] (test kzad=9168) [place] [address] BUN AND [id number] 05:48:00 Test Item Value Reference Range Comments BLOOD UREA NITROGEN 19 mg/dL 7-21 (BEAKER) (test aolv=084) CREATININE (BEAKER) (test 0.91 mg/dL 0.57-1.25 mygt=913) EGFR (BEAKER) (test 92 mL/min/1.73 sq m ESTIMATED GFR IS NOT emlx=8967) ACCURATE CREATININE CLEARANCE IN PREDICTING GLOMERULAR FILTRATION RATE. ESTIMATED GFR IS NOT APPLICABLE FOR DIALYSIS PATIENTS. POCT-GLUCOSE [id number] 21:41:00 Test Item Value Reference Range Comments POC-GLUCOSE METER (BEAKER) 221 mg/dL 70-110 TESTED AT [address] (test hezv=3531) [place] [address] POCT-GLUCOSE [id number] 17:13:00 Test Item Value Reference Range Comments POC-GLUCOSE METER (BEAKER) 321 mg/dL 70-110 Notified RN or MD Patient (test uelt=0307) refused repeat test/TESTED AT [place] [address] BUN AND [id number] 16:20:00 Test Item Value Reference Range Comments BLOOD UREA NITROGEN 10 mg/dL 7-21 (BEAKER) (test wppr=800) CREATININE (BEAKER) (test 0.60 mg/dL 0.57-1.25 bxnt=999) EGFR (BEAKER) (test 149 mL/min/1.73 sq m ESTIMATED GFR IS NOT tpbu=4472) ACCURATE CREATININE CLEARANCE IN PREDICTING GLOMERULAR FILTRATION RATE. ESTIMATED GFR IS NOT APPLICABLE FOR DIALYSIS PATIENTS. POCT-GLUCOSE [id number] 11:55:00 Test Item Value Reference Range Comments POC-GLUCOSE METER (BEAKER) 200 mg/dL 70-110 TESTED AT [address] (test enlk=5468) [place] [id number] POCT-GLUCOSE [id number] 08:16:00 Test Item Value Reference Range Comments POC-GLUCOSE METER (BEAKER) 419 mg/dL 70-110 TESTED AT [address] (test rwdr=4178) [place] [address] POCT-GLUCOSE [id number] 21:09:00 Test Item Value Reference Range Comments POC-GLUCOSE METER (BEAKER) 376 mg/dL 70-110 TESTED AT [address] (test mycu=6419) [place] [address] POCT-GLUCOSE [id number] 17:27:00 Test Item Value Reference Range Comments POC-GLUCOSE METER (BEAKER) 267 mg/dL 70-110 TESTED AT [address] (test uxnc=0003) [place] [address] POCT-GLUCOSE [id number] 13:54:00 Test Item Value Reference Range Comments POC-GLUCOSE METER (BEAKER) 197 mg/dL 70-110 TESTED AT [address] (test afxy=2497) [place] [address] POCT-GLUCOSE [id number] 12:34:00 Test Item Value Reference Range Comments POC-GLUCOSE METER (BEAKER) > mg/dL 70-110 OUTSIDE MEASURING RANGETESTED AT (test zfbi=1688) [place] [id number] POCT-GLUCOSE [id number] 08:15:00 Test Item Value Reference Range Comments POC-GLUCOSE METER (BEAKER) 387 mg/dL 70-110 Notified JORDON STAPLETON/TESTED AT [facility] (test ycpu=2013) [address] [place] [address] BASIC METABOLIC [id number] 05:17:00 Test Item Value Reference Range Comments SODIUM (BEAKER) (test 136 meq/L 136-145 xuca=748) POTASSIUM (BEAKER) (test 4.3 meq/L 3.5-5.1 yopo=598) CHLORIDE (BEAKER) (test 101 meq/L 98-107 lwoz=487) CO2 (BEAKER) (test 24 meq/L 22-29 cujz=414) BLOOD UREA NITROGEN 10 mg/dL 7-21 (BEAKER) (test bybx=699) CREATININE (BEAKER) (test 0.73 mg/dL 0.57-1.25 icep=547) GLUCOSE RANDOM (BEAKER) 273 mg/dL 70-105 (test fwbg=046) CALCIUM (BEAKER) (test 8.6 mg/dL 8.4-10.2 xwer=768) EGFR (BEAKER) (test 119 mL/min/1.73 sq m ESTIMATED GFR IS NOT aoay=2193) ACCURATE CREATININE CLEARANCE IN PREDICTING GLOMERULAR FILTRATION RATE. ESTIMATED GFR IS NOT APPLICABLE FOR DIALYSIS PATIENTS. SPIN/CONCENTRATION [id number] 05:13:00 Test Item Value Reference Range Comments CONCENTRATION CHARGED (BEAKER) (test hyjq=3118) Done URINALYSIS W/ [id number] 01:00:00 Test Item Value Reference Range Comments COLOR (BEAKER) (test rkxs=110) Light Yellow CLARITY (BEAKER) (test froo=856) Clear SPECIFIC GRAVITY UA (BEAKER) (test dxnz=453) 1.028 1.001-1.035 PH UA (BEAKER) (test zndu=989) 7.0 5.0-8.0 PROTEIN UA (BEAKER) (test bxgn=026) 20 mg/dL Negative GLUCOSE UA (BEAKER) (test meim=251) >1000 mg/dL Negative KETONES UA (BEAKER) (test cpfc=143) Negative Negative BILIRUBIN UA (BEAKER) (test vbit=981) Negative Negative BLOOD UA (BEAKER) (test vmfx=158) Negative Negative NITRITE UA (BEAKER) (test tozd=752) Negative Negative LEUKOCYTE ESTERASE UA (BEAKER) (test cnor=170) Negative Negative UROBILINOGEN UA (BEAKER) (test pkbn=162) 0.2 mg/dL 0.2-1.0 RBC UA (BEAKER) (test dcbv=580) 1 /HPF WBC UA (BEAKER) (test yccu=002) < /HPF SQUAMOUS EPITHELIAL (BEAKER) (test bqdp=146) 1 /HPF SOURCE(BEAKER) (test ylwq=2745) Urine, Voided SCREEN, [id number] 00:55:00 Test Item Value Reference Range Comments TEST URINE (BEAKER) (test angx=794) Negative POCT-GLUCOSE [id number] 21:10:00 Test Item Value Reference Range Comments POC-GLUCOSE METER (BEAKER) 342 mg/dL 70-110 TESTED AT [address] (test bleo=5931) [place] [id number] HEMOGLOBIN [id number] 19:26:00 Test Item Value Reference Range Comments HEMOGLOBIN A1C (BEAKER) (test djvc=547) 15.4 % 4.3-6.1 POCT-GLUCOSE [id number] 19:20:00 Test Item Value Reference Range Comments POC-GLUCOSE METER (BEAKER) 470 mg/dL 70-110 TESTED AT [address] (test quko=7630) [place] [id number] COMPREHENSIVE METABOLIC [id number] 19:10:00 Test Item Value Reference Range Comments TOTAL PROTEIN (BEAKER) 7.3 gm/dL 6.0-8.3 (test mibx=868) ALBUMIN (BEAKER) (test 3.2 g/dL 3.5-5.0 skpm=6769) ALKALINE PHOSPHATASE 129 U/L 40-150 (BEAKER) (test vpio=688) BILIRUBIN TOTAL (BEAKER) < mg/dL 0.2-1.2 (test ecfz=250) SODIUM (BEAKER) (test 138 meq/L 136-145 tmsn=676) POTASSIUM (BEAKER) (test 4.4 meq/L 3.5-5.1 hxvw=368) CHLORIDE (BEAKER) (test 99 meq/L 98-107 cfld=294) CO2 (BEAKER) (test 29 meq/L 22-29 csjo=085) BLOOD UREA NITROGEN 6 mg/dL 7-21 (BEAKER) (test fkjn=570) CREATININE (BEAKER) (test 0.81 mg/dL 0.57-1.25 ccxk=826) GLUCOSE RANDOM (BEAKER) 515 mg/dL 70-105 (test mpzb=758) CALCIUM (BEAKER) (test 9.1 mg/dL 8.4-10.2 fzsr=106) AST (SGOT) (BEAKER) (test 9 U/L 5-34 jufs=157) ALT (SGPT) (BEAKER) (test 6 U/L 6-55 lgfz=801) EGFR (BEAKER) (test 105 mL/min/1.73 sq ESTIMATED GFR IS NOT wbrg=6087) m ACCURATE CREATININE CLEARANCE IN PREDICTING GLOMERULAR FILTRATION RATE. ESTIMATED GFR IS NOT APPLICABLE FOR DIALYSIS PATIENTS. [id number] 19:07:00 Test Item Value Reference Range Comments PHOSPHORUS (BEAKER) (test fngu=829) 3.4 mg/dL 2.3-4.7 [id number] 19:07:00 Test Item Value Reference Range Comments MAGNESIUM (BEAKER) (test byqe=785) 1.5 mg/dL 1.6-2.6 GAMMA GLUTAMYL TRANSFERASE (GGT)[id number] 19:07:00 Test Item Value Reference Range Comments GAMMA GLUTAMYL TRANSFERASE (BEAKER) (test hxlo=281) 24 U/L 9-64 CBC W/PLT COUNT & AUTO [id number] 18:40:00 Test Item Value Reference Range Comments WHITE BLOOD CELL COUNT (BEAKER) (test pgmn=748) 8.4 K/ L 3.5-10.5 RED BLOOD CELL COUNT (BEAKER) (test hsrm=520) 4.51 M/ L 3.93-5.22 HEMOGLOBIN (BEAKER) (test ixkb=928) 11.4 GM/DL 11.2-15.7 HEMATOCRIT (BEAKER) (test fvit=760) 37.0 % 34.1-44.9 MEAN CORPUSCULAR VOLUME (BEAKER) (test dpsu=233) 82.0 fL 79.4-94.8 MEAN CORPUSCULAR HEMOGLOBIN (BEAKER) (test 25.3 pg 25.6-32.2 wwjs=632) MEAN CORPUSCULAR HEMOGLOBIN CONC (BEAKER) (test 30.8 GM/DL 32.2-35.5 cqev=196) RED CELL DISTRIBUTION WIDTH (BEAKER) (test 14.6 % 11.7-14.4 evdg=006) PLATELET COUNT (BEAKER) (test bgai=173) 302 K/CU MM 150-450 MEAN PLATELET VOLUME (BEAKER) (test jfnc=129) 12.4 fL 9.4-12.3 NUCLEATED RED BLOOD CELLS (BEAKER) (test 0 /100 WBC 0-0 bnrz=311) NEUTROPHILS RELATIVE PERCENT (BEAKER) (test 68 % ywbr=039) LYMPHOCYTES RELATIVE PERCENT (BEAKER) (test 20 % wwtt=459) MONOCYTES RELATIVE PERCENT (BEAKER) (test 8 % vrkw=267) EOSINOPHILS RELATIVE PERCENT (BEAKER) (test 3 % zmyy=751) BASOPHILS RELATIVE PERCENT (BEAKER) (test 0 % kcfe=985) NEUTROPHILS ABSOLUTE COUNT (BEAKER) (test 5.74 K/ L 1.56-6.13 rnvq=494) LYMPHOCYTES ABSOLUTE COUNT (BEAKER) (test 1.66 K/ L 1.18-3.74 yefz=034) MONOCYTES ABSOLUTE COUNT (BEAKER) (test 0.70 K/ L 0.24-0.36 hqdi=965) EOSINOPHILS ABSOLUTE COUNT (BEAKER) (test 0.28 K/ L 0.04-0.36 fvny=783) BASOPHILS ABSOLUTE COUNT (BEAKER) (test 0.03 K/ L 0.01-0.08 tzbo=035) IMMATURE GRANULOCYTES-RELATIVE PERCENT (BEAKER) 0 % 0-1 (test jsoe=4909) AFB CULTURE + [id number] 07:09:00 Test Item Value Reference Range Comments CULTURE (BEAKER) (test No acid-fast bacilli isolated wkxf=9757) in 42 days AFB SMEAR (BEAKER) (test No acid fast bacilli seen uvsf=211) POCT-GLUCOSE [id number] 12:37:00 Test Item Value Reference Range Comments POC-GLUCOSE METER (BEAKER) 215 mg/dL 70-110 TESTED AT [address] (test sfdp=8203) [facility] [address] POCT-GLUCOSE [id number] 08:48:00 Test Item Value Reference Range Comments POC-GLUCOSE METER (BEAKER) 264 mg/dL 70-110 TESTED AT [address] (test mpmo=9719) [facility] [address] [id number] 06:25:00 Test Item Value Reference Range Comments PHOSPHORUS (BEAKER) (test kdfv=192) 4.3 mg/dL 2.3-4.7 [id number] 06:25:00 Test Item Value Reference Range Comments MAGNESIUM (BEAKER) (test psxh=291) 1.8 mg/dL 1.6-2.6 BASIC METABOLIC [id number] 06:25:00 Test Item Value Reference Range Comments SODIUM (BEAKER) (test 140 meq/L 136-145 yrts=536) POTASSIUM (BEAKER) (test 4.5 meq/L 3.5-5.1 mcvo=683) CHLORIDE (BEAKER) (test 103 meq/L 98-107 guhc=727) CO2 (BEAKER) (test 27 meq/L 22-29 wkly=389) BLOOD UREA NITROGEN 18 mg/dL 7-21 (BEAKER) (test ntcq=792) CREATININE (BEAKER) (test 0.74 mg/dL 0.57-1.25 ikws=113) GLUCOSE RANDOM (BEAKER) 253 mg/dL 70-105 (test ooew=179) CALCIUM (BEAKER) (test 8.0 mg/dL 8.4-10.2 debs=589) EGFR (BEAKER) (test 117 mL/min/1.73 sq m ESTIMATED GFR IS NOT vkkk=6303) ACCURATE CREATININE CLEARANCE IN PREDICTING GLOMERULAR FILTRATION RATE. ESTIMATED GFR IS NOT APPLICABLE FOR DIALYSIS PATIENTS. CBC W/PLT COUNT & AUTO [id number] 06:01:00 Test Item Value Reference Range Comments WHITE BLOOD CELL COUNT (BEAKER) (test fswj=210) 11.6 K/ L 4.0-10.0 RED BLOOD CELL COUNT (BEAKER) (test lfrw=333) 3.80 M/ L 4.00-5.00 HEMOGLOBIN (BEAKER) (test fnlt=479) 10.4 GM/DL 12.0-15.0 HEMATOCRIT (BEAKER) (test xuug=784) 33.1 % 36.0-45.0 MEAN CORPUSCULAR VOLUME (BEAKER) (test ezat=769) 87.1 fL 82.0-99.0 MEAN CORPUSCULAR HEMOGLOBIN (BEAKER) (test 27.4 pg 27.0-33.0 ehzn=089) MEAN CORPUSCULAR HEMOGLOBIN CONC (BEAKER) (test 31.4 GM/DL 32.0-36.0 eeiz=200) RED CELL DISTRIBUTION WIDTH (BEAKER) (test 16.5 % 10.3-14.2 dgyu=294) PLATELET COUNT (BEAKER) (test apaq=940) 324 K/CU MM 150-430 MEAN PLATELET VOLUME (BEAKER) (test heqp=307) 8.8 fL 6.5-10.5 NUCLEATED RED BLOOD CELLS (BEAKER) (test 0 /100 WBC 0-0 jwwp=383) NEUTROPHILS RELATIVE PERCENT (BEAKER) (test 63 % oimt=276) LYMPHOCYTES RELATIVE PERCENT (BEAKER) (test 24 % zjcn=130) MONOCYTES RELATIVE PERCENT (BEAKER) (test 9 % vgga=215) EOSINOPHILS RELATIVE PERCENT (BEAKER) (test 3 % bkqy=085) BASOPHILS RELATIVE PERCENT (BEAKER) (test 1 % kcpy=127) NEUTROPHILS ABSOLUTE COUNT (BEAKER) (test 7.31 K/ L 1.80-8.00 myii=715) LYMPHOCYTES ABSOLUTE COUNT (BEAKER) (test 2.77 K/ L 1.48-4.50 lnga=679) MONOCYTES ABSOLUTE COUNT (BEAKER) (test 1.03 K/ L 0.00-1.30 zxil=066) EOSINOPHILS ABSOLUTE COUNT (BEAKER) (test 0.39 K/ L 0.00-0.50 eotu=497) BASOPHILS ABSOLUTE COUNT (BEAKER) (test 0.07 K/ L 0.00-0.20 gztw=060) 0.00CF RESPIRATORY [id number] 00:39:00 Test Item Value Reference Range Comments CULTURE (BEAKER) (test PSEUDOMONAS 4+ Pseudomonas vgkk=6509) AERUGINOSA aeruginosa (MUCOID-PHENOTYPE) (Mucoid-phenotype)mu coid colony type [...] code=7) Resistant <0 or >1 Doripenem (test oaiy=392) Susceptible 0-2 , Resistant <0 or >2 [...] + Clavulanic Acid (test code=80) Tigecycline (test yrrk=779) Tobramycin (test code=25) Susceptible 0-4 , Resistant <0 or >4 Trimethoprim + Sulfamethoxazole (test code=47) CULTURE (BEAKER) (test PSEUDOMONAS 4+ Pseudomonas tmil=5603) AERUGINOSA aeruginosaof a second type Amikacin (test code=1) Susceptible 0-16 , Resistant <0 or >16 Ampicillin (test gkzx=379) Ampicillin + Sulbactam (test code=62) Aztreonam (test code=32) Susceptible 0-8 , Resistant <0 or >8 Cefazolin (test code=92) Cefepime (test code=51) Susceptible 0-8 , Resistant <0 or >8 Ceftazidime (test Susceptible 0-8 , code=27) Resistant <0 or >8 Ceftriaxone (test eohm=880) Ciprofloxacin (test Susceptible 0-1 , code=7) Resistant <0 or >1 Doripenem (test wndj=703) Susceptible 0-2 , Resistant <0 or >2 Ertapenem (test zjxd=943) Gentamicin (test code=18) Susceptible 0-4 , Resistant <0 or >4 Imipenem (test code=19) Susceptible 0-2 , Resistant <0 or >2 Levofloxacin (test Susceptible 0-2 , code=22) Resistant <0 or >2 Meropenem (test code=34) Susceptible 0-2 , Resistant <0 or >2 Minocycline (test kxgy=026) Nitrofurantoin (test yhqc=380) Piperacillin (test Susceptible 0-16 , code=24) Resistant <0 or >16 Piperacillin + Tazobactam Susceptible 0-16 , (test code=29) Resistant <0 or >16 Tetracycline (test code=22) Ticarcillin + Clavulanic Acid (test rgge=490) Tigecycline (test znap=6980) Tobramycin (test code=25) Susceptible 0-4 , Resistant <0 or >4 Trimethoprim + Sulfamethoxazole (test vyij=005) 3+ Normal respiratory derick presentPOCT-GLUCOSE [id number] 21:38:00 Test Item Value Reference Range Comments POC-GLUCOSE METER (BEAKER) 221 mg/dL 70-110 TESTED AT [address] (test ekik=3412) [place] [id number] POCT-GLUCOSE [id number] 17:55:00 Test Item Value Reference Range Comments POC-GLUCOSE METER (BEAKER) 146 mg/dL 70-110 TESTED AT [address] (test idvu=2375) [place] [id number] POCT-GLUCOSE [id number] 12:18:00 Test Item Value Reference Range Comments POC-GLUCOSE METER (BEAKER) 249 mg/dL 70-110 TESTED AT [address] (test yygl=4112) [place] [id number] CBC W/PLT COUNT & AUTO [id number] 11:26:00 Test Item Value Reference Range Comments WHITE BLOOD CELL COUNT (BEAKER) (test wymg=751) 11.6 K/ L 4.0-10.0 RED BLOOD CELL COUNT (BEAKER) (test ndqh=801) 3.75 M/ L 4.00-5.00 HEMOGLOBIN (BEAKER) (test sgtl=080) 10.4 GM/DL 12.0-15.0 HEMATOCRIT (BEAKER) (test lphi=249) 32.6 % 36.0-45.0 MEAN CORPUSCULAR VOLUME (BEAKER) (test obzb=440) 86.9 fL 82.0-99.0 MEAN CORPUSCULAR HEMOGLOBIN (BEAKER) (test 27.8 pg 27.0-33.0 ldtr=734) MEAN CORPUSCULAR HEMOGLOBIN CONC (BEAKER) (test 32.0 GM/DL 32.0-36.0 djiz=722) RED CELL DISTRIBUTION WIDTH (BEAKER) (test 16.1 % 10.3-14.2 uvsf=547) PLATELET COUNT (BEAKER) (test twgl=378) 303 K/CU MM 150-430 MEAN PLATELET VOLUME (BEAKER) (test jnjj=805) 8.8 fL 6.5-10.5 NUCLEATED RED BLOOD CELLS (BEAKER) (test 0 /100 WBC 0-0 arsm=078) NEUTROPHILS RELATIVE PERCENT (BEAKER) (test 71 % tpwi=235) LYMPHOCYTES RELATIVE PERCENT (BEAKER) (test 19 % mszv=378) MONOCYTES RELATIVE PERCENT (BEAKER) (test 8 % ybev=427) EOSINOPHILS RELATIVE PERCENT (BEAKER) (test 1 % ejtz=932) BASOPHILS RELATIVE PERCENT (BEAKER) (test 0 % ufeu=256) NEUTROPHILS ABSOLUTE COUNT (BEAKER) (test 8.28 K/ L 1.80-8.00 enco=752) LYMPHOCYTES ABSOLUTE COUNT (BEAKER) (test 2.20 K/ L 1.48-4.50 bruy=167) MONOCYTES ABSOLUTE COUNT (BEAKER) (test 0.99 K/ L 0.00-1.30 ejdy=649) EOSINOPHILS ABSOLUTE COUNT (BEAKER) (test 0.12 K/ L 0.00-0.50 ptdv=983) BASOPHILS ABSOLUTE COUNT (BEAKER) (test 0.03 K/ L 0.00-0.20 qqvf=532) [id number] 11:23:00 Test Item Value Reference Range Comments MAGNESIUM (BEAKER) (test jdgv=679) 1.3 mg/dL 1.6-2.6 BASIC METABOLIC [id number] 11:23:00 Test Item Value Reference Range Comments SODIUM (BEAKER) (test 139 meq/L 136-145 jimd=999) POTASSIUM (BEAKER) (test 3.1 meq/L 3.5-5.1 hvkl=534) CHLORIDE (BEAKER) (test 103 meq/L 98-107 udqi=940) CO2 (BEAKER) (test 26 meq/L 22-29 rzps=370) BLOOD UREA NITROGEN 17 mg/dL 7-21 (BEAKER) (test qmzw=321) CREATININE (BEAKER) (test 0.69 mg/dL 0.57-1.25 jmlx=625) GLUCOSE RANDOM (BEAKER) 222 mg/dL 70-105 (test mqsi=940) CALCIUM (BEAKER) (test 8.6 mg/dL 8.4-10.2 jeai=024) EGFR (BEAKER) (test 127 mL/min/1.73 sq m ESTIMATED GFR IS NOT etrt=7731) ACCURATE CREATININE CLEARANCE IN PREDICTING GLOMERULAR FILTRATION RATE. ESTIMATED GFR IS NOT APPLICABLE FOR DIALYSIS PATIENTS. SCREEN, [id number] 11:22:00 Test Item Value Reference Range Comments TEST URINE (BEAKER) (test fbos=018) Negative POCT-GLUCOSE [id number] 08:09:00 Test Item Value Reference Range Comments POC-GLUCOSE METER (BEAKER) 264 mg/dL 70-110 TESTED AT [address] (test nugo=8704) [facility] [address] POCT-GLUCOSE [id number] 22:02:00 Test Item Value Reference Range Comments POC-GLUCOSE METER (BEAKER) 221 mg/dL 70-110 TESTED AT [address] (test adah=2153) [facility] [address] POCT-GLUCOSE [id number] 17:16:00 Test Item Value Reference Range Comments POC-GLUCOSE METER (BEAKER) 173 mg/dL 70-110 TESTED AT [address] (test qciz=0013) [facility] [address] POCT-GLUCOSE [id number] 13:38:00 Test Item Value Reference Range Comments POC-GLUCOSE METER (BEAKER) 155 mg/dL 70-110 TESTED AT [address] (test dxqe=9778) [facility] [address] POCT-GLUCOSE [id number] 09:15:00 Test Item Value Reference Range Comments POC-GLUCOSE METER (BEAKER) 258 mg/dL 70-110 TESTED AT [address] (test mjjr=9831) [facility] [address] CBC W/PLT COUNT & AUTO [id number] 06:38:00 Test Item Value Reference Range Comments WHITE BLOOD CELL COUNT (BEAKER) (test vhpc=640) 11.0 K/ L 4.0-10.0 RED BLOOD CELL COUNT (BEAKER) (test eiee=573) 3.81 M/ L 4.00-5.00 HEMOGLOBIN (BEAKER) (test xeky=547) 10.2 GM/DL 12.0-15.0 HEMATOCRIT (BEAKER) (test nqtv=284) 33.4 % 36.0-45.0 MEAN CORPUSCULAR VOLUME (BEAKER) (test oleh=765) 87.8 fL 82.0-99.0 MEAN CORPUSCULAR HEMOGLOBIN (BEAKER) (test 26.8 pg 27.0-33.0 dodf=090) MEAN CORPUSCULAR HEMOGLOBIN CONC (BEAKER) (test 30.5 GM/DL 32.0-36.0 ibhw=196) RED CELL DISTRIBUTION WIDTH (BEAKER) (test 14.8 % 10.3-14.2 pqmg=995) PLATELET COUNT (BEAKER) (test oizb=818) 277 K/CU MM 150-430 MEAN PLATELET VOLUME (BEAKER) (test cvbt=417) 8.8 fL 6.5-10.5 NUCLEATED RED BLOOD CELLS (BEAKER) (test 0 /100 WBC 0-0 exmh=862) NEUTROPHILS RELATIVE PERCENT (BEAKER) (test 77 % uyfy=438) LYMPHOCYTES RELATIVE PERCENT (BEAKER) (test 15 % yviu=756) MONOCYTES RELATIVE PERCENT (BEAKER) (test 8 % cctg=689) EOSINOPHILS RELATIVE PERCENT (BEAKER) (test 0 % zfhd=032) BASOPHILS RELATIVE PERCENT (BEAKER) (test 0 % ywjf=759) NEUTROPHILS ABSOLUTE COUNT (BEAKER) (test 8.41 K/ L 1.80-8.00 bnad=663) LYMPHOCYTES ABSOLUTE COUNT (BEAKER) (test 1.60 K/ L 1.48-4.50 eram=729) MONOCYTES ABSOLUTE COUNT (BEAKER) (test 0.87 K/ L 0.00-1.30 gdod=579) EOSINOPHILS ABSOLUTE COUNT (BEAKER) (test 0.03 K/ L 0.00-0.50 eoti=754) BASOPHILS ABSOLUTE COUNT (BEAKER) (test 0.04 K/ L 0.00-0.20 vnog=466) [id number] 06:33:00 Test Item Value Reference Range Comments MAGNESIUM (BEAKER) (test rsbd=985) 1.3 mg/dL 1.6-2.6 BASIC METABOLIC [id number] 06:33:00 Test Item Value Reference Range Comments SODIUM (BEAKER) (test 136 meq/L 136-145 iwnd=617) POTASSIUM (BEAKER) (test 3.3 meq/L 3.5-5.1 ncvf=691) CHLORIDE (BEAKER) (test 102 meq/L 98-107 tcbs=401) CO2 (BEAKER) (test 25 meq/L 22-29 zkzy=705) BLOOD UREA NITROGEN 16 mg/dL 7-21 (BEAKER) (test npqu=575) CREATININE (BEAKER) (test 0.69 mg/dL 0.57-1.25 fntz=686) GLUCOSE RANDOM (BEAKER) 222 mg/dL 70-105 (test beuj=942) CALCIUM (BEAKER) (test 8.3 mg/dL 8.4-10.2 ozqy=879) EGFR (BEAKER) (test 127 mL/min/1.73 sq m ESTIMATED GFR IS NOT wgig=8151) ACCURATE CREATININE CLEARANCE IN PREDICTING GLOMERULAR FILTRATION RATE. ESTIMATED GFR IS NOT APPLICABLE FOR DIALYSIS PATIENTS. POCT-GLUCOSE [id number] 22:04:00 Test Item Value Reference Range Comments POC-GLUCOSE METER (BEAKER) 336 mg/dL 70-110 TESTED AT [address] (test dcum=3603) [place] [address] POCT-GLUCOSE [id number] 17:40:00 Test Item Value Reference Range Comments POC-GLUCOSE METER (BEAKER) 281 mg/dL 70-110 TESTED AT [address] (test iwmp=1339) [place] [id number] POCT-GLUCOSE [id number] 11:41:00 Test Item Value Reference Range Comments POC-GLUCOSE METER (BEAKER) 412 mg/dL 70-110 TESTED AT [address] (test lnye=4384) [facility] [address] BASIC METABOLIC [id number] 09:00:00 Test Item Value Reference Range Comments SODIUM (BEAKER) (test 133 meq/L 136-145 qspr=796) POTASSIUM (BEAKER) (test 3.9 meq/L 3.5-5.1 efye=879) CHLORIDE (BEAKER) (test 100 meq/L 98-107 ofob=754) CO2 (BEAKER) (test 25 meq/L 22-29 kufp=158) BLOOD UREA NITROGEN 16 mg/dL 7-21 (BEAKER) (test tiry=747) CREATININE (BEAKER) (test 1.02 mg/dL 0.57-1.25 vdyv=577) GLUCOSE RANDOM (BEAKER) 522 mg/dL 70-105 (test vxof=736) CALCIUM (BEAKER) (test 9.0 mg/dL 8.4-10.2 mkbd=485) EGFR (BEAKER) (test 81 mL/min/1.73 sq m ESTIMATED GFR IS NOT yzjr=1703) ACCURATE CREATININE CLEARANCE IN PREDICTING GLOMERULAR FILTRATION RATE. ESTIMATED GFR IS NOT APPLICABLE FOR DIALYSIS PATIENTS. POCT-GLUCOSE [id number] 08:49:00 Test Item Value Reference Range Comments POC-GLUCOSE METER (BEAKER) 444 mg/dL 70-110 Notified JORDON STAPLETON/TESTED AT [facility] (test cyql=0620) [address] [place] [place] [address] [id number] 08:44:00 Test Item Value Reference Range Comments MAGNESIUM (BEAKER) (test dlwq=475) 1.3 mg/dL 1.6-2.6 CBC W/PLT COUNT & AUTO [id number] 08:26:00 Test Item Value Reference Range Comments WHITE BLOOD CELL COUNT (BEAKER) (test ipxp=105) 9.4 K/ L 4.0-10.0 RED BLOOD CELL COUNT (BEAKER) (test xzbh=149) 3.89 M/ L 4.00-5.00 HEMOGLOBIN (BEAKER) (test lqxq=521) 10.4 GM/DL 12.0-15.0 HEMATOCRIT (BEAKER) (test hiaw=899) 34.5 % 36.0-45.0 MEAN CORPUSCULAR VOLUME (BEAKER) (test xrqs=096) 88.6 fL 82.0-99.0 MEAN CORPUSCULAR HEMOGLOBIN (BEAKER) (test 26.7 pg 27.0-33.0 zkaq=681) MEAN CORPUSCULAR HEMOGLOBIN CONC (BEAKER) (test 30.1 GM/DL 32.0-36.0 pfyr=964) RED CELL DISTRIBUTION WIDTH (BEAKER) (test 14.6 % 10.3-14.2 ipfv=138) PLATELET COUNT (BEAKER) (test fyfg=840) 274 K/CU MM 150-430 MEAN PLATELET VOLUME (BEAKER) (test frrh=772) 8.7 fL 6.5-10.5 NUCLEATED RED BLOOD CELLS (BEAKER) (test 0 /100 WBC 0-0 nrlg=820) NEUTROPHILS RELATIVE PERCENT (BEAKER) (test 77 % roww=918) LYMPHOCYTES RELATIVE PERCENT (BEAKER) (test 15 % ixij=983) MONOCYTES RELATIVE PERCENT (BEAKER) (test 9 % slcu=655) EOSINOPHILS RELATIVE PERCENT (BEAKER) (test 0 % rbzj=593) BASOPHILS RELATIVE PERCENT (BEAKER) (test 0 % ntnc=709) NEUTROPHILS ABSOLUTE COUNT (BEAKER) (test 7.16 K/ L 1.80-8.00 nbuk=616) LYMPHOCYTES ABSOLUTE COUNT (BEAKER) (test 1.39 K/ L 1.48-4.50 zzaj=997) MONOCYTES ABSOLUTE COUNT (BEAKER) (test 0.81 K/ L 0.00-1.30 wzqb=999) EOSINOPHILS ABSOLUTE COUNT (BEAKER) (test 0.01 K/ L 0.00-0.50 mpyl=696) BASOPHILS ABSOLUTE COUNT (BEAKER) (test 0.00 K/ L 0.00-0.20 hgvw=861) 0.00POCT-GLUCOSE [id number] 21:23:00 Test Item Value Reference Range Comments POC-GLUCOSE METER (BEAKER) 176 mg/dL 70-110 TESTED AT [address] (test fwkz=0664) [place] [id number] HEMOGLOBIN [id number] 21:21:00 Test Item Value Reference Range Comments HEMOGLOBIN A1C (BEAKER) (test iclo=118) 12.1 % 4.3-6.1 POCT-GLUCOSE [id number] 18:03:00 Test Item Value Reference Range Comments POC-GLUCOSE METER (BEAKER) 270 mg/dL 70-110 TESTED AT [address] (test fzea=0866) [place] [id number] POCT-GLUCOSE [id number] 11:22:00 Test Item Value Reference Range Comments POC-GLUCOSE METER (BEAKER) 347 mg/dL 70-110 Notified JORDON STAPLETON/TESTED AT [facility] (test nuzq=4166) [address] [place], [place] [id number] POCT-GLUCOSE [id number] 08:31:00 Test Item Value Reference Range Comments POC-GLUCOSE METER (BEAKER) 280 mg/dL 70-110 TESTED AT [address] (test ctzr=4081) [place] [id number] POCT-GLUCOSE [id number] 06:03:00 Test Item Value Reference Range Comments POC-GLUCOSE METER (BEAKER) 277 mg/dL 70-110 TESTED AT [address] (test vpad=4309) [place] [id number] POCT-GLUCOSE [id number] 22:13:00 Test Item Value Reference Range Comments POC-GLUCOSE METER (BEAKER) 404 mg/dL 70-110 TESTED AT [facility] [address] [place] [address] (test viqg=3988) [facility] [address] POCT-GLUCOSE [id number] 17:49:00 Test Item Value Reference Range Comments POC-GLUCOSE METER (BEAKER) 485 mg/dL 70-110 Notified JORDON STAPLETON/TESTED AT [facility] (test ykbm=0686) [address] [place] [address] POCT-GLUCOSE [id number] 11:49:00 Test Item Value Reference Range Comments POC-GLUCOSE METER (BEAKER) 142 mg/dL 70-110 TESTED AT [address] (test stsq=9346) [facility] [address] CBC W/PLT COUNT & AUTO [id number] 08:39:00 Test Item Value Reference Range Comments WHITE BLOOD CELL COUNT (BEAKER) (test wwut=510) 9.2 K/ L 4.0-10.0 RED BLOOD CELL COUNT (BEAKER) (test oyyx=950) 4.24 M/ L 4.00-5.00 HEMOGLOBIN (BEAKER) (test jusa=658) 11.6 GM/DL 12.0-15.0 HEMATOCRIT (BEAKER) (test jnji=240) 37.7 % 36.0-45.0 MEAN CORPUSCULAR VOLUME (BEAKER) (test ndpb=044) 89.0 fL 82.0-99.0 MEAN CORPUSCULAR HEMOGLOBIN (BEAKER) (test 27.4 pg 27.0-33.0 xexq=981) MEAN CORPUSCULAR HEMOGLOBIN CONC (BEAKER) (test 30.8 GM/DL 32.0-36.0 abvs=433) RED CELL DISTRIBUTION WIDTH (BEAKER) (test 14.3 % 10.3-14.2 exvr=195) PLATELET COUNT (BEAKER) (test qgzo=435) 345 K/CU MM 150-430 MEAN PLATELET VOLUME (BEAKER) (test wnfm=094) 9.3 fL 6.5-10.5 NUCLEATED RED BLOOD CELLS (BEAKER) (test 0 /100 WBC 0-0 vukv=075) NEUTROPHILS RELATIVE PERCENT (BEAKER) (test 69 % usmj=652) LYMPHOCYTES RELATIVE PERCENT (BEAKER) (test 22 % lkfa=456) MONOCYTES RELATIVE PERCENT (BEAKER) (test 7 % msdd=674) EOSINOPHILS RELATIVE PERCENT (BEAKER) (test 3 % pxkt=165) BASOPHILS RELATIVE PERCENT (BEAKER) (test 0 % jbvk=030) NEUTROPHILS ABSOLUTE COUNT (BEAKER) (test 6.30 K/ L 1.80-8.00 cpjy=659) LYMPHOCYTES ABSOLUTE COUNT (BEAKER) (test 2.00 K/ L 1.48-4.50 kpub=663) MONOCYTES ABSOLUTE COUNT (BEAKER) (test 0.61 K/ L 0.00-1.30 kteb=044) EOSINOPHILS ABSOLUTE COUNT (BEAKER) (test 0.26 K/ L 0.00-0.50 lgti=557) BASOPHILS ABSOLUTE COUNT (BEAKER) (test 0.03 K/ L 0.00-0.20 ikfu=820) 0.00POCT-GLUCOSE [id number] 08:05:00 Test Item Value Reference Range Comments POC-GLUCOSE METER (BEAKER) 380 mg/dL 70-110 Notified JORDON STAPLETON/TESTED AT [facility] (test vpbm=4046) [address] [facility] [address] COMPREHENSIVE METABOLIC [id number] 07:44:00 Test Item Value Reference Range Comments TOTAL PROTEIN (BEAKER) 7.1 gm/dL 6.0-8.3 (test wgwg=195) ALBUMIN (BEAKER) (test 3.0 g/dL 3.5-5.0 uxfz=4662) ALKALINE PHOSPHATASE 119 U/L 40-150 (BEAKER) (test univ=158) BILIRUBIN TOTAL (BEAKER) 0.1 mg/dL 0.2-1.2 (test aulq=473) SODIUM (BEAKER) (test 135 meq/L 136-145 zqmx=241) POTASSIUM (BEAKER) (test 3.8 meq/L 3.5-5.1 ytqp=540) CHLORIDE (BEAKER) (test 99 meq/L 98-107 aigu=702) CO2 (BEAKER) (test 27 meq/L 22-29 pioq=060) BLOOD UREA NITROGEN 3 mg/dL 7-21 (BEAKER) (test bstc=903) CREATININE (BEAKER) (test 0.77 mg/dL 0.57-1.25 zykd=024) GLUCOSE RANDOM (BEAKER) 549 mg/dL 70-105 (test uslv=346) CALCIUM (BEAKER) (test 8.8 mg/dL 8.4-10.2 vssh=029) AST (SGOT) (BEAKER) (test 14 U/L 5-34 bvzf=491) ALT (SGPT) (BEAKER) (test 10 U/L 6-55 kgji=699) EGFR (BEAKER) (test 112 mL/min/1.73 sq ESTIMATED GFR IS NOT pknx=0591) m ACCURATE CREATININE CLEARANCE IN PREDICTING GLOMERULAR FILTRATION RATE. ESTIMATED GFR IS NOT APPLICABLE FOR DIALYSIS PATIENTS. [id number] 07:41:00 Test Item Value Reference Range Comments FERRITIN (BEAKER) (test ycfm=782) 126 ng/mL 5-275 Effective 09/11/2014: Reference Range ChangeNew: Male 5-275 Previous: Male 22-322 Female 5-275 Female 10-291TSH/FREE T4 IF [id number] 07:41:00 Test Item Value Reference Range Comments THYROID STIMULATING HORMONE (BEAKER) (test 1.94 uIU/mL 0.35-4.94 rtvq=406) [id number] 07:33:00 Test Item Value Reference Range Comments MAGNESIUM (BEAKER) (test rsjj=971) 1.3 mg/dL 1.6-2.6 LIPID [id number] 07:33:00 Test Item Value Reference Range Comments TRIGLYCERIDES (BEAKER) (test bugv=016) 115 mg/dL CHOLESTEROL (BEAKER) (test znco=883) 135 mg/dL HDL CHOLESTEROL (BEAKER) (test szro=543) 48 mg/dL LDL CHOLESTEROL CALCULATED (BEAKER) (test 64 mg/dL rlhr=427) Triglyceride Reference Range: Low Risk <150 Borderline 150- 199 High Risk 200-499 Very High Risk >=500Cholesterol Reference Range: Low Risk <200 Borderline 200-239 High Risk > 240HDL Cholesterol Reference Range: Low Risk >=60 High Risk <40LDL Cholesterol Reference Range: Optimal <100 Near Optimal 100-129 Borderline 130-159 High 160-189 Very High >=[id number] 07:33:00 Test Item Value Reference Range Comments PREALBUMIN (BEAKER) (test nwbx=310) 13 mg/dL 14-45 IRON, TIBC, % SAT. (WITHOUT FERRITIN)2017-04-29 07:33:00 Test Item Value Reference Range Comments IRON (BEAKER) (test awbf=015) 35 ug/dL 40-160 TOTAL IRON BINDING CAPACITY (BEAKER) (test 310 ug/dL 250-450 xqqf=827) IRON % SATURATION (2) (BEAKER) (test ubap=3801) 11 % 20-55 [id number] 07:24:00 Test Item Value Reference Range Comments PROTIME (BEAKER) (test uuao=852) 13.3 seconds 11.7-14.7 INR (BEAKER) (test hems=188) 1.0 <=5.9 PARTIAL THROMBOPLASTIN TIME (BEAKER) (test 35.2 seconds 22.5-36.0 gneb=595) RECOMMENDED COUMADIN/WARFARIN INR THERAPY RANGESSTANDARD DOSE: 2.0 - 3.0 Includes: PROPHYLAXIS forvenous thrombosis, systemic embolization; TREATMENT for venous thrombosis and/or pulmonary embolus.HIGH RISK: Target INR is 2.5-3.5 for patients with mechanical heart valves.POCT-GLUCOSE [id number] 21:48:00 Test Item Value Reference Range Comments POC-GLUCOSE METER (BEAKER) 289 mg/dL 70-110 TESTED AT [address] (test qmjo=3765) [place] [address] POCT-GLUCOSE [id number] 18:49:00 Test Item Value Reference Range Comments POC-GLUCOSE METER (BEAKER) 492 mg/dL 70-110 TESTED AT [address] (test mkev=8543) [place] [address] CF RESPIRATORY [id number] 06:58:00 Test Item Value Reference Range Comments CULTURE (BEAKER) (test PSEUDOMONAS 1+ Pseudomonas uljf=0288) AERUGINOSA aeruginosa Amikacin (test code=1) Susceptible 0-16 [...] code=7) Resistant <0 or >1 Doripenem (test rzgu=810) Susceptible 0-2 , Resistant <0 or >2 [...] + Clavulanic Acid (test code=80) Tigecycline (test vhmi=923) Tobramycin (test code=25) Susceptible 0-4 , Resistant <0 or >4 Trimethoprim + Sulfamethoxazole (test code=47) CULTURE (BEAKER) (test PSEUDOMONAS 2+ Pseudomonas jajj=0736) AERUGINOSA aeruginosa (MUCOID-PHENOTYPE) (Mucoid-phenotype) Amikacin (test code=1) Susceptible 0-16 , Resistant <0 or >16 Ampicillin (test xnxv=878) Ampicillin + Sulbactam (test code=62) Aztreonam (test code=32) Susceptible 0-8 , Resistant <0 or >8 Cefazolin (test code=92) Cefepime (test code=51) Susceptible 0-8 , Resistant <0 or >8 Ceftazidime (test Susceptible 0-8 , code=27) Resistant <0 or >8 Ceftriaxone (test mmal=672) Ciprofloxacin (test Susceptible 0-1 , code=7) Resistant <0 or >1 Doripenem (test tlab=238) Susceptible 0-2 , Resistant <0 or >2 Ertapenem (test siun=451) Gentamicin (test code=18) Susceptible 0-4 , Resistant <0 or >4 Imipenem (test code=19) Levofloxacin (test Susceptible 0-2 , code=22) Resistant <0 or >2 Meropenem (test code=34) Minocycline (test ktio=229) Nitrofurantoin (test gjix=512) Piperacillin (test Susceptible 0-16 , code=24) Resistant <0 or >16 Piperacillin + Tazobactam (test code=29) Tetracycline (test code=22) Ticarcillin + Clavulanic Acid (test wpvb=534) Tigecycline (test itbj=8121) Tobramycin (test code=25) Susceptible 0-4 , Resistant <0 or >4 Trimethoprim + Sulfamethoxazole (test rash=589) 1+ Normal respiratory derick presentFUNGUS CULTURE + [id number] 11:05:00 Test Item Value Reference Range Comments CULTURE ([facility] (test wgaq=5200) 1+ Clau glabrata FUNGUS SMEAR ([facility] (test No fungi seen avzd=5140) POCT-GLUCOSE [id number] 12:28:00 Test Item Value Reference Range Comments POC-GLUCOSE METER (BEAKER) 112 mg/dL 70-110 TESTED AT [address] (test mpuu=6591) [place] [address] POCT-GLUCOSE [id number] 08:33:00 Test Item Value Reference Range Comments POC-GLUCOSE METER (BEAKER) 144 mg/dL 70-110 TESTED AT [address] (test fzhe=7430) [place] [address] BUN AND [id number] 05:40:00 Test Item Value Reference Range Comments BLOOD UREA NITROGEN 17 mg/dL 7-21 ([facility] (test ikuz=527) CREATININE ([facility] (test 0.60 mg/dL 0.57-1.25 ihzb=030) EGFR (AKER) (test 149 mL/min/1.73 sq m ESTIMATED GFR IS NOT mclz=5741) ACCURATE CREATININE CLEARANCE IN PREDICTING GLOMERULAR FILTRATION RATE. ESTIMATED GFR IS NOT APPLICABLE FOR DIALYSIS PATIENTS. POCT-GLUCOSE [id number] 21:09:00 Test Item Value Reference Range Comments POC-GLUCOSE METER (BEAKER) 154 mg/dL 70-110 TESTED AT [address] (test knbm=7727) [place] [address] POCT-GLUCOSE [id number] 17:37:00 Test Item Value Reference Range Comments POC-GLUCOSE METER (BEAKER) 176 mg/dL 70-110 TESTED AT [address] (test wjns=5604) [place] [id number] POCT-GLUCOSE [id number] 13:59:00 Test Item Value Reference Range Comments POC-GLUCOSE METER (BEAKER) 126 mg/dL 70-110 TESTED AT [address] (test douf=7195) [place] [address] POCT-GLUCOSE [id number] 11:39:00 Test Item Value Reference Range Comments POC-GLUCOSE METER (BEAKER) 113 mg/dL 70-110 TESTED AT [address] (test epzi=5808) [place] [address] POCT-GLUCOSE [id number] 08:59:00 Test Item Value Reference Range Comments POC-GLUCOSE METER (BEAKER) 99 mg/dL 70-110 TESTED AT [address] (test mwej=0626) [place] [address] BUN AND [id number] 06:11:00 Test Item Value Reference Range Comments BLOOD UREA NITROGEN 18 mg/dL 7-21 (BEAKER) (test eqbh=836) CREATININE (BEAKER) (test 0.65 mg/dL 0.57-1.25 drax=081) EGFR (BEAKER) (test 136 mL/min/1.73 sq m ESTIMATED GFR IS NOT rzfj=9975) ACCURATE CREATININE CLEARANCE IN PREDICTING GLOMERULAR FILTRATION RATE. ESTIMATED GFR IS NOT APPLICABLE FOR DIALYSIS PATIENTS. POCT-GLUCOSE [id number] 21:43:00 Test Item Value Reference Range Comments POC-GLUCOSE METER (BEAKER) 110 mg/dL 70-110 TESTED AT [address] (test utei=7898) [place] [address] POCT-GLUCOSE [id number] 18:34:00 Test Item Value Reference Range Comments POC-GLUCOSE METER (BEAKER) 336 mg/dL 70-110 TESTED AT [address] (test nxil=8443) [place] [address] POCT-GLUCOSE [id number] 17:53:00 Test Item Value Reference Range Comments POC-GLUCOSE METER (BEAKER) 150 mg/dL 70-110 TESTED AT [address] (test sqbg=9749) [place] [address] POCT-GLUCOSE [id number] 12:04:00 Test Item Value Reference Range Comments POC-GLUCOSE METER (BEAKER) 295 mg/dL 70-110 TESTED AT [address] (test nskj=8344) [facility] [address] POCT-GLUCOSE [id number] 09:25:00 Test Item Value Reference Range Comments POC-GLUCOSE METER (BEAKER) 52 mg/dL 70-110 Notified JORDON STAPLETON/TESTED AT [facility] (test krnh=1789) [address] [place] [address] BASIC METABOLIC [id number] 06:59:00 Test Item Value Reference Range Comments SODIUM (BEAKER) (test 138 meq/L 136-145 mvfe=165) POTASSIUM (BEAKER) (test 3.6 meq/L 3.5-5.1 krsh=503) CHLORIDE (BEAKER) (test 103 meq/L 98-107 rlfo=245) CO2 (BEAKER) (test 27 meq/L 22-29 cnvi=305) BLOOD UREA NITROGEN 23 mg/dL 7-21 (BEAKER) (test opve=380) CREATININE (BEAKER) (test 0.69 mg/dL 0.57-1.25 mnhf=970) GLUCOSE RANDOM (BEAKER) 59 mg/dL 70-105 (test vkqc=602) CALCIUM (BEAKER) (test 7.6 mg/dL 8.4-10.2 xoho=616) EGFR (BEAKER) (test 127 mL/min/1.73 sq m ESTIMATED GFR IS NOT mqje=8478) ACCURATE CREATININE CLEARANCE IN PREDICTING GLOMERULAR FILTRATION RATE. ESTIMATED GFR IS NOT APPLICABLE FOR DIALYSIS PATIENTS. BLOOD [id number] 00:00:00 Test Item Value Reference Range Comments CULTURE (BEAKER) (test vvnv=7051) No growth in 5 days BLOOD [id number] 00:00:00 Test Item Value Reference Range Comments CULTURE (BEAKER) (test zdqa=4478) No growth in 5 days POCT-GLUCOSE [id number] 22:01:00 Test Item Value Reference Range Comments POC-GLUCOSE METER (BEAKER) 177 mg/dL 70-110 TESTED AT [address] (test sojk=3275) [facility] [address] POCT-GLUCOSE [id number] 18:32:00 Test Item Value Reference Range Comments POC-GLUCOSE METER (BEAKER) 118 mg/dL 70-110 TESTED AT [address] (test cvcg=8615) [facility] [address] POCT-GLUCOSE [id number] 17:29:00 Test Item Value Reference Range Comments POC-GLUCOSE METER (BEAKER) 69 mg/dL 70-110 TESTED AT [address] (test eclp=5341) [place] [address] POCT-GLUCOSE [id number] 14:12:00 Test Item Value Reference Range Comments POC-GLUCOSE METER (BEAKER) 141 mg/dL 70-110 TESTED AT [address] (test qryg=8438) [facility] [address] POCT-GLUCOSE [id number] 10:01:00 Test Item Value Reference Range Comments POC-GLUCOSE METER (BEAKER) 220 mg/dL 70-110 TESTED AT [address] (test sggm=5945) [place] [address] POCT-GLUCOSE [id number] 08:51:00 Test Item Value Reference Range Comments POC-GLUCOSE METER (BEAKER) 220 mg/dL 70-110 TESTED AT [address] (test uqdl=1726) [place] [address] POCT-GLUCOSE [id number] 21:45:00 Test Item Value Reference Range Comments POC-GLUCOSE METER (BEAKER) 306 mg/dL 70-110 TESTED AT [address] (test inga=5575) [facility] [address] POCT-GLUCOSE [id number] 20:06:00 Test Item Value Reference Range Comments POC-GLUCOSE METER (BEAKER) 392 mg/dL 70-110 TESTED AT [address] (test tkqz=4126) [place] [address] POCT-GLUCOSE [id number] 15:28:00 Test Item Value Reference Range Comments POC-GLUCOSE METER (BEAKER) 403 mg/dL 70-110 Notified RN or MD Patient (test nyle=3269) refused repeat test/TESTED AT [place] [address] [id number] 12:43:00 Test Item Value Reference Range Comments BLOOD UREA NITROGEN (BEAKER) (test bgvk=287) 18 mg/dL 7-21 [id number] 12:43:00 Test Item Value Reference Range Comments CREATININE (BEAKER) (test 0.84 mg/dL 0.57-1.25 yelo=149) EGFR (BEAKER) (test 101 mL/min/1.73 sq m ESTIMATED GFR IS NOT qamq=6189) ACCURATE CREATININE CLEARANCE IN PREDICTING GLOMERULAR FILTRATION RATE. ESTIMATED GFR IS NOT APPLICABLE FOR DIALYSIS PATIENTS. POCT-GLUCOSE [id number] 12:25:00 Test Item Value Reference Range Comments POC-GLUCOSE METER (BEAKER) 382 mg/dL 70-110 TESTED AT [address] (test dfmc=2018) [place] [address] POCT-GLUCOSE [id number] 08:23:00 Test Item Value Reference Range Comments POC-GLUCOSE METER (BEAKER) 95 mg/dL 70-110 TESTED AT [address] (test fzbt=4772) [place] [address] POCT-GLUCOSE [id number] 22:45:00 Test Item Value Reference Range Comments POC-GLUCOSE METER (BEAKER) 153 mg/dL 70-110 TESTED AT [address] (test dggn=9351) [place] [address] POCT-GLUCOSE [id number] 17:40:00 Test Item Value Reference Range Comments POC-GLUCOSE METER (BEAKER) 316 mg/dL 70-110 Notified RN or MD Patient (test sgci=4220) refused repeat test/TESTED AT [place] [address] POCT-GLUCOSE [id number] 12:12:00 Test Item Value Reference Range Comments POC-GLUCOSE METER (BEAKER) 279 mg/dL 70-110 TESTED AT [address] (test smoq=8611) [place] [address] RESPIRATORY PANEL [id number] 11:36:00 Test Item Value Reference Range Comments HUMAN METAPNEUMOVIRUS (BEAKER) (test Not detected Not detected, Inconclusive uqye=3510) RHINOVIRUS (BEAKER) (test fwcl=3650) Not detected Not detected, Inconclusive INFLUENZA A (BEAKER) (test Not detected Not detected, Inconclusive cydo=3304) INFLUENZA A SUBTYPE H1 (BEAKER) Not detected Not detected, Inconclusive (test jmhh=5618) INFLUENZA A SUBTYPE H3 (BEAKER) Not detected Not detected, Inconclusive (test lzny=0675) INFLUENZA A SUBTYPE H1-2009 (BEAKER) Not detected Not detected, Inconclusive (test kjgf=6012) INFLUENZA B (BEAKER) (test Not detected Not detected, Inconclusive ilgz=7428) RESPIRATORY SYNCYTIAL VIRUS (BEAKER) Not detected Not detected, Inconclusive (test lwrw=3233) PARAINFLUENZA VIRUS 1 (BEAKER) (test Not detected Not detected, Inconclusive mxea=5620) PARAINFLUENZA VIRUS 2 (BEAKER) (test Not detected Not detected, Inconclusive prky=8807) PARAINFLUENZA VIRUS 3 (BEAKER) (test Not detected Not detected, Inconclusive fbsz=1096) PARAINFLUENZA VIRUS 4 (BEAKER) (test Not detected Not detected, Inconclusive plvn=2061) ADENOVIRUS (BEAKER) (test ebyj=6679) Not detected Not detected, Inconclusive CORONAVIRUS 229E (BEAKER) (test Not detected Not detected, Inconclusive erim=2468) CORONAVIRUS HKU1 (BEAKER) (test Not detected Not detected, Inconclusive mysr=1414) CORONAVIRUS NL63 (BEAKER) (test Not detected Not detected, Inconclusive sekl=3079) CORONAVIRUS OC43 (BEAKER) (test Not detected Not detected, Inconclusive orsv=9359) BORDETELLA PERTUSSIS (BEAKER) (test Not detected Not detected, Inconclusive wunc=7692) CHLAMYDOPHILA PNEUMONIAE (BEAKER) Not detected Not detected, Inconclusive (test swwy=8681) MYCOPLASMA PNEUMONIAE (BEAKER) (test Not detected Not detected, Inconclusive hvdh=4461) POCT-GLUCOSE [id number] 08:37:00 Test Item Value Reference Range Comments POC-GLUCOSE METER (BEAKER) 302 mg/dL 70-110 Verify with Lab draw/TESTED AT (test qvmh=0387) [facility] [address] [facility] [address] [id number] 07:38:00 Test Item Value Reference Range Comments BLOOD UREA NITROGEN (BEAKER) (test bsjl=641) 13 mg/dL 7-21 [id number] 07:38:00 Test Item Value Reference Range Comments CREATININE (BEAKER) (test 0.83 mg/dL 0.57-1.25 fkuv=206) EGFR (BEAKER) (test 102 mL/min/1.73 sq m ESTIMATED GFR IS NOT pyja=6639) ACCURATE CREATININE CLEARANCE IN PREDICTING GLOMERULAR FILTRATION RATE. ESTIMATED GFR IS NOT APPLICABLE FOR DIALYSIS PATIENTS. POCT-GLUCOSE [id number] 23:25:00 Test Item Value Reference Range Comments POC-GLUCOSE METER (BEAKER) 376 mg/dL 70-110 TESTED AT [address] (test mtzs=0323) [place] [address] POCT-GLUCOSE [id number] 21:02:00 Test Item Value Reference Range Comments POC-GLUCOSE METER (BEAKER) 339 mg/dL 70-110 Notified JORDON STAPLETON/TESTED AT [facility] (test uutw=0649) [address] [place] [address] SPIN/CONCENTRATION [id number] 16:49:00 Test Item Value Reference Range Comments CONCENTRATION CHARGED (BEAKER) (test aylc=2039) Done URINE [id number] 14:16:00 Test Item Value Reference Range Comments CULTURE (BEAKER) (test hxrz=0683) See comment <10,000 col/mL YEAST>100,000 col/mL skin floraPOCT-GLUCOSE [id number] 12:23:00 Test Item Value Reference Range Comments POC-GLUCOSE METER (BEAKER) 259 mg/dL 70-110 TESTED AT [address] (test nuih=8128) [place] [address] [id number] 10:26:00 Test Item Value Reference Range Comments CREATININE (BEAKER) (test 0.77 mg/dL 0.57-1.25 hsuj=676) EGFR (BEAKER) (test 112 mL/min/1.73 sq m ESTIMATED GFR IS NOT lonf=3079) ACCURATE CREATININE CLEARANCE IN PREDICTING GLOMERULAR FILTRATION RATE. ESTIMATED GFR IS NOT APPLICABLE FOR DIALYSIS PATIENTS. [id number] 10:08:00 Test Item Value Reference Range Comments BLOOD UREA NITROGEN (BEAKER) (test iefq=743) 17 mg/dL 7-21 POCT-GLUCOSE [id number] 09:04:00 Test Item Value Reference Range Comments POC-GLUCOSE METER (BEAKER) 173 mg/dL 70-110 TESTED AT [address] (test jdir=9611) [place] [address] POCT-GLUCOSE [id number] 21:10:00 Test Item Value Reference Range Comments POC-GLUCOSE METER (BEAKER) 151 mg/dL 70-110 TESTED AT [address] (test juoe=3829) [place] [address] SCREEN, [id number] 20:03:00 Test Item Value Reference Range Comments TEST URINE (BEAKER) (test xytu=492) Negative POCT-GLUCOSE [id number] 17:01:00 Test Item Value Reference Range Comments POC-GLUCOSE METER (BEAKER) 252 mg/dL 70-110 TESTED AT [address] (test zqfa=7673) [place] [address] BASIC METABOLIC [id number] 16:19:00 Test Item Value Reference Range Comments SODIUM (BEAKER) (test 138 meq/L 136-145 yafp=079) POTASSIUM (BEAKER) (test 3.8 meq/L 3.5-5.1 otft=796) CHLORIDE (BEAKER) (test 105 meq/L 98-107 mwlz=080) CO2 (BEAKER) (test 21 meq/L 22-29 zlmp=237) BLOOD UREA NITROGEN 9 mg/dL 7-21 (BEAKER) (test urvn=745) CREATININE (BEAKER) (test 0.94 mg/dL 0.57-1.25 yqbt=579) GLUCOSE RANDOM (BEAKER) 421 mg/dL 70-105 (test ivof=035) CALCIUM (BEAKER) (test 8.5 mg/dL 8.4-10.2 bijh=940) EGFR (BEAKER) (test 89 mL/min/1.73 sq m ESTIMATED GFR IS NOT bncb=7180) ACCURATE CREATININE CLEARANCE IN PREDICTING GLOMERULAR FILTRATION RATE. ESTIMATED GFR IS NOT APPLICABLE FOR DIALYSIS PATIENTS. [id number] 16:15:00 Test Item Value Reference Range Comments MAGNESIUM (BEAKER) (test dlkd=912) 1.4 mg/dL 1.6-2.6 POCT-GLUCOSE [id number] 11:37:00 Test Item Value Reference Range Comments POC-GLUCOSE METER (BEAKER) > mg/dL 70-110 OUTSIDE MEASURING RANGENotified RN (test zrzw=6818) MD/TESTED AT [address] [address] HEMOGLOBIN [id number] 11:03:00 Test Item Value Reference Range Comments HEMOGLOBIN A1C (BEAKER) (test ophb=535) 12.5 % 4.3-6.1 POCT-GLUCOSE [id number] 08:22:00 Test Item Value Reference Range Comments POC-GLUCOSE METER (BEAKER) 434 mg/dL 70-110 Notified RN MD/TESTED AT [facility] (test molb=6530) [facility] [address] COMPREHENSIVE METABOLIC [id number] 06:58:00 Test Item Value Reference Range Comments TOTAL PROTEIN (BEAKER) 7.7 gm/dL 6.0-8.3 (test iyse=095) ALBUMIN (BEAKER) (test 3.1 g/dL 3.5-5.0 ghtb=1030) ALKALINE PHOSPHATASE 135 U/L 40-150 (BEAKER) (test psbi=519) BILIRUBIN TOTAL (BEAKER) 0.1 mg/dL 0.2-1.2 (test xcvz=398) SODIUM (BEAKER) (test 135 meq/L 136-145 bgyn=304) POTASSIUM (BEAKER) (test 4.6 meq/L 3.5-5.1 ttnm=982) CHLORIDE (BEAKER) (test 100 meq/L 98-107 zdom=839) CO2 (BEAKER) (test 24 meq/L 22-29 txne=392) BLOOD UREA NITROGEN 11 mg/dL 7-21 (BEAKER) (test evrm=433) CREATININE (BEAKER) (test 0.94 mg/dL 0.57-1.25 qoqg=640) GLUCOSE RANDOM (BEAKER) 533 mg/dL 70-105 (test lqpk=627) CALCIUM (BEAKER) (test 8.4 mg/dL 8.4-10.2 pmiy=418) AST (SGOT) (BEAKER) (test 16 U/L 5-34 exmi=378) ALT (SGPT) (BEAKER) (test 22 U/L 6-55 qnlu=127) EGFR (BEAKER) (test 89 mL/min/1.73 sq m ESTIMATED GFR IS NOT hhfb=2570) ACCURATE CREATININE CLEARANCE IN PREDICTING GLOMERULAR FILTRATION RATE. ESTIMATED GFR IS NOT APPLICABLE FOR DIALYSIS PATIENTS. [id number] 06:43:00 Test Item Value Reference Range Comments MAGNESIUM (BEAKER) (test bpfu=861) 1.6 mg/dL 1.6-2.6 [id number] 06:30:00 Test Item Value Reference Range Comments PHOSPHORUS (BEAKER) (test zwvo=991) 2.9 mg/dL 2.3-4.7 GAMMA GLUTAMYL TRANSFERASE (GGT)2017-03-24 06:29:00 Test Item Value Reference Range Comments GAMMA GLUTAMYL TRANSFERASE (BEAKER) (test xodb=175) 28 U/L 9-64 CBC W/PLT COUNT & AUTO [id number] 06:11:00 Test Item Value Reference Range Comments WHITE BLOOD CELL COUNT (BEAKER) (test twsg=996) 9.4 K/ L 4.0-10.0 RED BLOOD CELL COUNT (BEAKER) (test bfwp=288) 4.21 M/ L 4.00-5.00 HEMOGLOBIN (BEAKER) (test iehl=046) 11.3 GM/DL 12.0-15.0 HEMATOCRIT (BEAKER) (test pqgu=673) 37.0 % 36.0-45.0 MEAN CORPUSCULAR VOLUME (BEAKER) (test sejn=002) 87.8 fL 82.0-99.0 MEAN CORPUSCULAR HEMOGLOBIN (BEAKER) (test 26.8 pg 27.0-33.0 htqw=254) MEAN CORPUSCULAR HEMOGLOBIN CONC (BEAKER) (test 30.5 GM/DL 32.0-36.0 wgnw=492) RED CELL DISTRIBUTION WIDTH (BEAKER) (test 14.1 % 10.3-14.2 nrac=778) PLATELET COUNT (BEAKER) (test hlhk=908) 321 K/CU MM 150-430 MEAN PLATELET VOLUME (BEAKER) (test gcjx=951) 9.0 fL 6.5-10.5 NUCLEATED RED BLOOD CELLS (BEAKER) (test 0 /100 WBC 0-0 autz=595) NEUTROPHILS RELATIVE PERCENT (BEAKER) (test 93 % bvar=153) LYMPHOCYTES RELATIVE PERCENT (BEAKER) (test 6 % qjow=990) MONOCYTES RELATIVE PERCENT (BEAKER) (test 1 % lztj=649) EOSINOPHILS RELATIVE PERCENT (BEAKER) (test 0 % fzqd=434) BASOPHILS RELATIVE PERCENT (BEAKER) (test 0 % jzpv=045) NEUTROPHILS ABSOLUTE COUNT (BEAKER) (test 8.70 K/ L 1.80-8.00 wsxl=926) LYMPHOCYTES ABSOLUTE COUNT (BEAKER) (test 0.60 K/ L 1.48-4.50 ncbt=917) MONOCYTES ABSOLUTE COUNT (BEAKER) (test 0.07 K/ L 0.00-1.30 nzad=287) EOSINOPHILS ABSOLUTE COUNT (BEAKER) (test 0.01 K/ L 0.00-0.50 gdkv=135) BASOPHILS ABSOLUTE COUNT (BEAKER) (test 0.00 K/ L 0.00-0.20 mmog=085) 0.00POCT-GLUCOSE [id number] 00:12:00 Test Item Value Reference Range Comments POC-GLUCOSE METER (BEAKER) 403 mg/dL 70-110 Notified JORDON STAPLETON/TESTED AT [facility] (test iiye=8106) [address] [place] [address] URINALYSIS W/ [id number] 21:19:00 Test Item Value Reference Range Comments COLOR (BEAKER) (test iyvj=243) Light Yellow CLARITY (BEAKER) (test etnf=012) Clear SPECIFIC GRAVITY UA (BEAKER) (test 1.013 1.001-1.035 eghh=172) PH UA (BEAKER) (test qxsl=210) 6.5 5.0-8.0 PROTEIN UA (BEAKER) (test fory=541) 20 mg/dL Negative GLUCOSE UA (BEAKER) (test jozq=341) >1000 mg/dL Negative KETONES UA (BEAKER) (test cocv=156) Negative Negative BILIRUBIN UA (BEAKER) (test hvii=190) Negative Negative BLOOD UA (BEAKER) (test vohx=133) Negative Negative NITRITE UA (BEAKER) (test ifdq=470) Negative Negative LEUKOCYTE ESTERASE UA (BEAKER) (test Negative Negative xdqb=653) UROBILINOGEN UA (BEAKER) (test rtnq=264) 0.2 mg/dL 0.2-1.0 RBC UA (BEAKER) (test rwxw=364) 1 /HPF WBC UA (BEAKER) (test xtez=377) < /HPF SQUAMOUS EPITHELIAL (BEAKER) (test < /HPF imtc=407) SOURCE(BEAKER) (test xvhm=7835) Urine, Clean Catch POCT-GLUCOSE [id number] 19:36:00 Test Item Value Reference Range Comments POC-GLUCOSE METER (BEAKER) 405 mg/dL 70-110 Notified JORDON STAPLETON/TESTED AT [facility] (test rlul=7994) [address] [place] [id number] POCT-LACTIC ACID, [id number] 18:38:00 Test Item Value Reference Range Comments POC-LACTIC ACID, VENOUS 1.9 mmol/L 0.9-1.7 TESTED AT [place] [address] [address] (BEAKER) (test qibt=0467) [place] [address] CREATINE KINASE (CK), TOTAL AND [id number] 18:36:00 Test Item Value Reference Range Comments CREATINE KINASE TOTAL (BEAKER) (test spxi=566) 39 U/L 29-200 CREATINE KINASE-MB (BEAKER) (test wgjq=489) 0.5 ng/mL 0.0-6.6 CREATINE KINASE-MB INDEX (BEAKER) (test skpb=297) 1.3 % Effective 09/11/2014: CK-MB Reference Range ChangeNew: 0.0-6.6 Previous: 0.0- 4.9CK-MB Reference Range:<6.7 Normal6.7-10.0 Borderline>10.0 AbnormalTROPONIN [id number] 18:36:00 Test Item Value Reference Range Comments TROPONIN I (BEAKER) (test hgld=998) < ng/mL 0.00-0.03 Effective 09/11/2014: Reference Range [...] Range Comments B-TYPE NATRIURETIC PEPTIDE (BEAKER) (test mghv=145) 43 pg/mL 0-100 [id number] 18:28:00 Test Item Value Reference Range Comments MAGNESIUM (BEAKER) (test kiry=037) 1.7 mg/dL 1.6-2.6 BASIC METABOLIC [id number] 18:28:00 Test Item Value Reference Range Comments SODIUM (BEAKER) (test 139 meq/L 136-145 zpca=475) POTASSIUM (BEAKER) (test 3.9 meq/L 3.5-5.1 wvly=172) CHLORIDE (BEAKER) (test 105 meq/L 98-107 qvjl=816) CO2 (BEAKER) (test 25 meq/L 22-29 limt=422) BLOOD UREA NITROGEN 10 mg/dL 7-21 (BEAKER) (test rpkr=543) CREATININE (BEAKER) (test 0.68 mg/dL 0.57-1.25 xquw=777) GLUCOSE RANDOM (BEAKER) 163 mg/dL 70-105 (test eayp=928) CALCIUM (BEAKER) (test 9.2 mg/dL 8.4-10.2 yrul=485) EGFR (BEAKER) (test 129 mL/min/1.73 sq m ESTIMATED GFR IS NOT fokn=3082) ACCURATE CREATININE CLEARANCE IN PREDICTING GLOMERULAR FILTRATION RATE. ESTIMATED GFR IS NOT APPLICABLE FOR DIALYSIS PATIENTS. PT/[id number] 18:24:00 Test Item Value Reference Range Comments PROTIME (BEAKER) (test pblt=102) 13.1 seconds 11.7-14.7 INR (BEAKER) (test mgqw=406) 1.0 <=5.9 PARTIAL THROMBOPLASTIN TIME (BEAKER) (test 32.9 seconds 22.5-36.0 brkv=206) RECOMMENDED COUMADIN/WARFARIN INR THERAPY RANGESSTANDARD DOSE: 2.0 - 3.0 Includes: PROPHYLAXIS forvenous thrombosis, systemic embolization; TREATMENT for venous thrombosis and/or pulmonary embolus.HIGH RISK: Target INR is 2.5-3.5 for patients with mechanical heart valves.CBC W/PLT COUNT & AUTO [id number] 18:16:00 Test Item Value Reference Range Comments WHITE BLOOD CELL COUNT (BEAKER) (test njoh=205) 11.5 K/ L 4.0-10.0 RED BLOOD CELL COUNT (BEAKER) (test rukv=386) 4.29 M/ L 4.00-5.00 HEMOGLOBIN (BEAKER) (test qmim=162) 11.3 GM/DL 12.0-15.0 HEMATOCRIT (BEAKER) (test dxcm=542) 37.0 % 36.0-45.0 MEAN CORPUSCULAR VOLUME (BEAKER) (test vlvn=151) 86.1 fL 82.0-99.0 MEAN CORPUSCULAR HEMOGLOBIN (BEAKER) (test 26.4 pg 27.0-33.0 rknz=957) MEAN CORPUSCULAR HEMOGLOBIN CONC (BEAKER) (test 30.7 GM/DL 32.0-36.0 ksaq=678) RED CELL DISTRIBUTION WIDTH (BEAKER) (test 15.7 % 10.3-14.2 poon=916) PLATELET COUNT (BEAKER) (test urka=787) 364 K/CU MM 150-430 MEAN PLATELET VOLUME (BEAKER) (test uvcg=481) 8.6 fL 6.5-10.5 NUCLEATED RED BLOOD CELLS (BEAKER) (test 0 /100 WBC 0-0 eliq=125) NEUTROPHILS RELATIVE PERCENT (BEAKER) (test 65 % hpxx=969) LYMPHOCYTES RELATIVE PERCENT (BEAKER) (test 23 % rvlq=365) MONOCYTES RELATIVE PERCENT (BEAKER) (test 8 % guym=865) EOSINOPHILS RELATIVE PERCENT (BEAKER) (test 4 % grip=581) BASOPHILS RELATIVE PERCENT (BEAKER) (test 1 % bzjx=612) NEUTROPHILS ABSOLUTE COUNT (BEAKER) (test 7.52 K/ L 1.80-8.00 zbor=515) LYMPHOCYTES ABSOLUTE COUNT (BEAKER) (test 2.63 K/ L 1.48-4.50 juuc=247) MONOCYTES ABSOLUTE COUNT (BEAKER) (test 0.88 K/ L 0.00-1.30 htfc=935) EOSINOPHILS ABSOLUTE COUNT (BEAKER) (test 0.44 K/ L 0.00-0.50 ytji=309) BASOPHILS ABSOLUTE COUNT (BEAKER) (test 0.07 K/ L 0.00-0.20 yoji=491) 0.00AFB CULTURE + [id number] 18:28:00 Test Item Value Reference Range Comments CULTURE (BEAKER) (test No acid-fast bacilli isolated pjli=3224) in 42 days AFB SMEAR (BEAKER) (test No acid fast bacilli seen zkkz=898) AFB CULTURE + [id number] 12:13:00 Test Item Value Reference Range Comments CULTURE (BEAKER) (test No acid-fast bacilli isolated jsay=9896) in 42 days AFB SMEAR (BEAKER) (test No acid fast bacilli seen fjor=432) FUNGUS CULTURE + [id number] 18:28:00 Test Item Value Reference Range Comments CULTURE (BEAKER) (test lmvb=1960) 2+ Clau albicans FUNGUS SMEAR (BEAKER) (test No fungi seen rfyl=1239) CF RESPIRATORY [id number] 04:50:00 Test Item Value Reference Range Comments CULTURE (BEAKER) (test PSEUDOMONAS 2+ Pseudomonas bexi=4669) AERUGINOSA aeruginosa Amikacin (test code=1) Susceptible 0-16 , Resistant <0 or >16 Aztreonam (test Susceptible 0-8 , code=32) Resistant <0 or >8 Cefepime (test code=51) Susceptible 0-8 , Resistant <0 or >8 Ceftazidime (test Susceptible 0-8 , code=27) Resistant <0 or >8 Ciprofloxacin (test Susceptible 0-1 , code=7) Resistant <0 or >1 Doripenem (test Susceptible 0-2 , zsrh=144) Resistant <0 or >2 Gentamicin (test Susceptible [...] >4 CULTURE (BEAKER) (test PSEUDOMONAS 2+ Pseudomonas uevy=31025) AERUGINOSA aeruginosaof a second type Amikacin (test code=1) Susceptible 0-16 , Resistant <0 or >16 Aztreonam (test Susceptible 0-8 , code=32) Resistant <0 or >8 Cefepime (test code=51) Susceptible 0-8 , Resistant <0 or >8 Ceftazidime (test Susceptible 0-8 , code=27) Resistant <0 or >8 Ciprofloxacin (test Susceptible 0-1 , code=7) Resistant <0 or >1 Doripenem (test Susceptible 0-2 , zsjg=427) Resistant <0 or >2 Gentamicin (test Susceptible [...] or >4 2+ Normal respiratory derick presentBLOOD [id number] 18:00:00 Test Item Value Reference Range Comments CULTURE (BEAKER) (test aoze=6807) No growth in 5 days BLOOD [id number] 18:00:00 Test Item Value Reference Range Comments CULTURE (BEAKER) (test auip=8525) No growth in 5 days POCT-GLUCOSE [id number] 12:39:00 Test Item Value Reference Range Comments POC-GLUCOSE METER (BEAKER) 352 mg/dL 70-110 TESTED AT [facility] [address] [facility] (test xdcb=7097) [facility] [address] BASIC METABOLIC [id number] 10:03:00 Test Item Value Reference Range Comments SODIUM (BEAKER) (test 141 meq/L 136-145 yuzk=771) POTASSIUM (BEAKER) (test 3.7 meq/L 3.5-5.1 dulv=033) CHLORIDE (BEAKER) (test 101 meq/L 98-107 mrfd=088) CO2 (BEAKER) (test 31 meq/L 22-29 qdqn=963) BLOOD UREA NITROGEN 7 mg/dL 7-21 (BEAKER) (test syib=961) CREATININE (BEAKER) (test 0.57 mg/dL 0.57-1.25 ytca=119) GLUCOSE RANDOM (BEAKER) 87 mg/dL 70-105 (test zvmn=872) CALCIUM (BEAKER) (test 8.4 mg/dL 8.4-10.2 gxmp=485) EGFR (BEAKER) (test 158 mL/min/1.73 sq m ESTIMATED GFR IS NOT jzas=4599) ACCURATE CREATININE CLEARANCE IN PREDICTING GLOMERULAR FILTRATION RATE. ESTIMATED GFR IS NOT APPLICABLE FOR DIALYSIS PATIENTS. CBC W/PLT COUNT & AUTO [id number] 09:23:00 Test Item Value Reference Range Comments WHITE BLOOD CELL COUNT (BEAKER) (test zpvr=571) 13.8 K/ L 4.0-10.0 RED BLOOD CELL COUNT (BEAKER) (test urdz=124) 3.83 M/ L 4.00-5.00 HEMOGLOBIN (BEAKER) (test ykxj=973) 10.5 GM/DL 12.0-15.0 HEMATOCRIT (BEAKER) (test inyh=919) 34.5 % 36.0-45.0 MEAN CORPUSCULAR VOLUME (BEAKER) (test tsxi=177) 90.1 fL 82.0-99.0 MEAN CORPUSCULAR HEMOGLOBIN (BEAKER) (test 27.5 pg 27.0-33.0 rpri=640) MEAN CORPUSCULAR HEMOGLOBIN CONC (BEAKER) (test 30.6 GM/DL 32.0-36.0 jcrw=760) RED CELL DISTRIBUTION WIDTH (BEAKER) (test 14.1 % 10.3-14.2 lkpl=158) PLATELET COUNT (BEAKER) (test kkxa=397) 354 K/CU MM 150-430 MEAN PLATELET VOLUME (BEAKER) (test viov=033) 8.4 fL 6.5-10.5 NUCLEATED RED BLOOD CELLS (BEAKER) (test 0 /100 WBC 0-0 txhp=675) NEUTROPHILS RELATIVE PERCENT (BEAKER) (test 68 % ojmm=679) LYMPHOCYTES RELATIVE PERCENT (BEAKER) (test 19 % ozwh=108) MONOCYTES RELATIVE PERCENT (BEAKER) (test 10 % ltaw=118) EOSINOPHILS RELATIVE PERCENT (BEAKER) (test 3 % jvft=045) BASOPHILS RELATIVE PERCENT (BEAKER) (test 0 % achk=361) NEUTROPHILS ABSOLUTE COUNT (BEAKER) (test 9.41 K/ L 1.80-8.00 lsjz=548) LYMPHOCYTES ABSOLUTE COUNT (BEAKER) (test 2.64 K/ L 1.48-4.50 kslu=858) MONOCYTES ABSOLUTE COUNT (BEAKER) (test 1.35 K/ L 0.00-1.30 ifsz=839) EOSINOPHILS ABSOLUTE COUNT (BEAKER) (test 0.37 K/ L 0.00-0.50 pdit=320) BASOPHILS ABSOLUTE COUNT (BEAKER) (test 0.03 K/ L 0.00-0.20 jbnk=958) 0.00POCT-GLUCOSE [id number] 08:55:00 Test Item Value Reference Range Comments POC-GLUCOSE METER (BEAKER) 82 mg/dL 70-110 TESTED AT [address] (test ptea=2384) [place] [id number] POCT-GLUCOSE [id number] 21:23:00 Test Item Value Reference Range Comments POC-GLUCOSE METER (BEAKER) 264 mg/dL 70-110 TESTED AT [address] (test mrgq=2043) [place] [id number] POCT-GLUCOSE [id number] 17:56:00 Test Item Value Reference Range Comments POC-GLUCOSE METER (BEAKER) 340 mg/dL 70-110 TESTED AT [address] (test kxel=8335) [place] [address] POCT-GLUCOSE [id number] 12:16:00 Test Item Value Reference Range Comments POC-GLUCOSE METER (BEAKER) 386 mg/dL 70-110 TESTED AT [address] (test pktn=2303) [place] [address] POCT-GLUCOSE [id number] 08:24:00 Test Item Value Reference Range Comments POC-GLUCOSE METER (BEAKER) 105 mg/dL 70-110 TESTED AT [address] (test iyjk=5222) [place] [address] BUN AND [id number] 06:44:00 Test Item Value Reference Range Comments BLOOD UREA NITROGEN 5 mg/dL 7-21 (BEAKER) (test vtwj=195) CREATININE (BEAKER) (test 0.56 mg/dL 0.57-1.25 dehe=876) EGFR (BEAKER) (test 161 mL/min/1.73 sq m ESTIMATED GFR IS NOT yfkx=6619) ACCURATE CREATININE CLEARANCE IN PREDICTING GLOMERULAR FILTRATION RATE. ESTIMATED GFR IS NOT APPLICABLE FOR DIALYSIS PATIENTS. POCT-GLUCOSE [id number] 23:49:00 Test Item Value Reference Range Comments POC-GLUCOSE METER (BEAKER) 211 mg/dL 70-110 TESTED AT [address] (test qsaz=2151) [place] [id number] POCT-GLUCOSE [id number] 19:36:00 Test Item Value Reference Range Comments POC-GLUCOSE METER (BEAKER) 288 mg/dL 70-110 TESTED AT [address] (test shug=1353) [place] [address] BUN AND [id number] 18:20:00 Test Item Value Reference Range Comments BLOOD UREA NITROGEN 8 mg/dL 7-21 (BEAKER) (test uxfa=686) CREATININE (BEAKER) (test 0.77 mg/dL 0.57-1.25 nwlp=945) EGFR (BEAKER) (test 112 mL/min/1.73 sq m ESTIMATED GFR IS NOT zxrm=6782) ACCURATE CREATININE CLEARANCE IN PREDICTING GLOMERULAR FILTRATION RATE. ESTIMATED GFR IS NOT APPLICABLE FOR DIALYSIS PATIENTS. POCT-GLUCOSE [id number] 17:09:00 Test Item Value Reference Range Comments POC-GLUCOSE METER (BEAKER) 388 mg/dL 70-110 TESTED AT [address] (test hfwd=2940) [facility] [address] POCT-GLUCOSE [id number] 13:54:00 Test Item Value Reference Range Comments POC-GLUCOSE METER (BEAKER) 445 mg/dL 70-110 TESTED AT [address] (test mfku=6726) [place] [id number] POCT-GLUCOSE [id number] 11:39:00 Test Item Value Reference Range Comments POC-GLUCOSE METER (BEAKER) 349 mg/dL 70-110 TESTED AT [address] (test kwke=7010) [facility] [address] POCT-GLUCOSE [id number] 09:08:00 Test Item Value Reference Range Comments POC-GLUCOSE METER (BEAKER) 52 mg/dL 70-110 TESTED AT [address] (test gizu=8828) [facility] [address] POCT-GLUCOSE [id number] 22:14:00 Test Item Value Reference Range Comments POC-GLUCOSE METER (BEAKER) 99 mg/dL 70-110 TESTED AT [address] (test twmb=6552) [facility] [address] POCT-GLUCOSE [id number] 18:07:00 Test Item Value Reference Range Comments POC-GLUCOSE METER (BEAKER) 209 mg/dL 70-110 TESTED AT [address] (test pqis=8722) [facility] [address] POCT-GLUCOSE [id number] 12:13:00 Test Item Value Reference Range Comments POC-GLUCOSE METER (BEAKER) 101 mg/dL 70-110 TESTED AT [address] (test layh=4371) [facility] [address] POCT-GLUCOSE [id number] 08:28:00 Test Item Value Reference Range Comments POC-GLUCOSE METER (BEAKER) 311 mg/dL 70-110 TESTED AT [facility] [address] (test pykn=0031) [facility] [address] BASIC METABOLIC [id number] 04:01:00 Test Item Value Reference Range Comments SODIUM (BEAKER) (test 135 meq/L 136-145 odaf=781) POTASSIUM (BEAKER) (test 4.2 meq/L 3.5-5.1 zwic=697) CHLORIDE (BEAKER) (test 99 meq/L 98-107 eves=655) CO2 (BEAKER) (test 29 meq/L 22-29 bned=585) BLOOD UREA NITROGEN 17 mg/dL 7-21 (BEAKER) (test qjpm=986) CREATININE (BEAKER) (test 0.79 mg/dL 0.57-1.25 eisk=926) GLUCOSE RANDOM (BEAKER) 402 mg/dL 70-105 (test advx=448) CALCIUM (BEAKER) (test 7.9 mg/dL 8.4-10.2 juxa=695) EGFR (BEAKER) (test 108 mL/min/1.73 sq m ESTIMATED GFR IS NOT nbjb=1452) ACCURATE CREATININE CLEARANCE IN PREDICTING GLOMERULAR FILTRATION RATE. ESTIMATED GFR IS NOT APPLICABLE FOR DIALYSIS PATIENTS. CBC W/PLT COUNT & AUTO [id number] 03:36:00 Test Item Value Reference Range Comments WHITE BLOOD CELL COUNT (BEAKER) (test xqnm=103) 12.5 K/ L 4.0-10.0 RED BLOOD CELL COUNT (BEAKER) (test yrrd=231) 3.97 M/ L 4.00-5.00 HEMOGLOBIN (BEAKER) (test xjmj=868) 11.3 GM/DL 12.0-15.0 HEMATOCRIT (BEAKER) (test znxb=415) 36.2 % 36.0-45.0 MEAN CORPUSCULAR VOLUME (BEAKER) (test pitg=366) 91.2 fL 82.0-99.0 MEAN CORPUSCULAR HEMOGLOBIN (BEAKER) (test 28.4 pg 27.0-33.0 faeh=601) MEAN CORPUSCULAR HEMOGLOBIN CONC (BEAKER) (test 31.1 GM/DL 32.0-36.0 qcdg=537) RED CELL DISTRIBUTION WIDTH (BEAKER) (test 13.9 % 10.3-14.2 qpfg=371) PLATELET COUNT (BEAKER) (test vxfc=701) 358 K/CU MM 150-430 MEAN PLATELET VOLUME (BEAKER) (test ryay=812) 8.8 fL 6.5-10.5 NUCLEATED RED BLOOD CELLS (BEAKER) (test 0 /100 WBC 0-0 gqad=250) NEUTROPHILS RELATIVE PERCENT (BEAKER) (test 73 % olbu=287) LYMPHOCYTES RELATIVE PERCENT (BEAKER) (test 19 % pnat=469) MONOCYTES RELATIVE PERCENT (BEAKER) (test 6 % iqpy=974) EOSINOPHILS RELATIVE PERCENT (BEAKER) (test 2 % vqxb=046) BASOPHILS RELATIVE PERCENT (BEAKER) (test 0 % kafl=871) NEUTROPHILS ABSOLUTE COUNT (BEAKER) (test 9.15 K/ L 1.80-8.00 gxtz=914) LYMPHOCYTES ABSOLUTE COUNT (BEAKER) (test 2.35 K/ L 1.48-4.50 lsmx=320) MONOCYTES ABSOLUTE COUNT (BEAKER) (test 0.74 K/ L 0.00-1.30 hdes=004) EOSINOPHILS ABSOLUTE COUNT (BEAKER) (test 0.25 K/ L 0.00-0.50 eqta=640) BASOPHILS ABSOLUTE COUNT (BEAKER) (test 0.04 K/ L 0.00-0.20 riyy=224) 0.00POCT-GLUCOSE [id number] 22:02:00 Test Item Value Reference Range Comments POC-GLUCOSE METER (BEAKER) 129 mg/dL 70-110 TESTED AT [address] (test hfem=2741) [place] [address] POCT-GLUCOSE [id number] 17:43:00 Test Item Value Reference Range Comments POC-GLUCOSE METER (BEAKER) 399 mg/dL 70-110 TESTED AT [address] (test thmg=3072) [place] [address] SPIN/CONCENTRATION [id number] 13:27:00 Test Item Value Reference Range Comments CONCENTRATION CHARGED (BEAKER) (test yvym=6084) Done POCT-GLUCOSE [id number] 12:38:00 Test Item Value Reference Range Comments POC-GLUCOSE METER (BEAKER) 312 mg/dL 70-110 TESTED AT [address] (test ajiy=3835) [place] [id number] CBC W/PLT COUNT & AUTO [id number] 09:37:00 Test Item Value Reference Range Comments WHITE BLOOD CELL COUNT (BEAKER) (test zcpn=762) 14.2 K/ L 4.0-10.0 RED BLOOD CELL COUNT (BEAKER) (test wrvz=857) 4.26 M/ L 4.00-5.00 HEMOGLOBIN (BEAKER) (test rktb=519) 11.9 GM/DL 12.0-15.0 HEMATOCRIT (BEAKER) (test dlqn=011) 38.2 % 36.0-45.0 MEAN CORPUSCULAR VOLUME (BEAKER) (test lftw=373) 89.9 fL 82.0-99.0 MEAN CORPUSCULAR HEMOGLOBIN (BEAKER) (test 27.9 pg 27.0-33.0 luqw=922) MEAN CORPUSCULAR HEMOGLOBIN CONC (BEAKER) (test 31.1 GM/DL 32.0-36.0 qcmm=412) RED CELL DISTRIBUTION WIDTH (BEAKER) (test 14.0 % 10.3-14.2 almo=832) PLATELET COUNT (BEAKER) (test qgzm=827) 359 K/CU MM 150-430 MEAN PLATELET VOLUME (BEAKER) (test wkdh=331) 8.9 fL 6.5-10.5 NUCLEATED RED BLOOD CELLS (BEAKER) (test 0 /100 WBC 0-0 ebgv=956) NEUTROPHILS RELATIVE PERCENT (BEAKER) (test 76 % euee=167) LYMPHOCYTES RELATIVE PERCENT (BEAKER) (test 18 % wria=428) MONOCYTES RELATIVE PERCENT (BEAKER) (test 5 % jked=902) EOSINOPHILS RELATIVE PERCENT (BEAKER) (test 1 % mjdd=322) BASOPHILS RELATIVE PERCENT (BEAKER) (test 0 % fasm=850) NEUTROPHILS ABSOLUTE COUNT (BEAKER) (test 10.80 K/ L 1.80-8.00 ijey=100) LYMPHOCYTES ABSOLUTE COUNT (BEAKER) (test 2.52 K/ L 1.48-4.50 fiul=258) MONOCYTES ABSOLUTE COUNT (BEAKER) (test 0.65 K/ L 0.00-1.30 sqhr=250) EOSINOPHILS ABSOLUTE COUNT (BEAKER) (test 0.21 K/ L 0.00-0.50 htvb=413) BASOPHILS ABSOLUTE COUNT (BEAKER) (test 0.03 K/ L 0.00-0.20 mheh=582) 0.00HCG, QUANTITATIVE, [id number] 09:10:00 Test Item Value Reference Range Comments GONADOTROPIN, CHORIONIC (HCG) QUANT (BEAKER) (test < mIU/mL 0-10 ysqk=320) Non- Females: <10 mIU/mL Females: Gestation Age Reference Range(mIU/mL) 0.2-1 Week 5-50 1-2 Weeks 50-500 2-3 Weeks 100-5,000 3-4Weeks 500-10,000 4 -5 Weeks 1,000-50,000 5-6 Weeks 10,000-100,000 6-8 Weeks 15,000-200,000 2-3 Months 10,000-100,000PREGNANCY SCREEN, [id number] 09:05:00 Test Item Value Reference Range Comments TEST URINE (BEAKER) (test hvrg=808) Negative GAMMA GLUTAMYL TRANSFERASE (GGT)2017-01-01 09:02:00 Test Item Value Reference Range Comments GAMMA GLUTAMYL TRANSFERASE (BEAKER) (test opms=544) 22 U/L 9-64 COMPREHENSIVE METABOLIC [id number] 09:02:00 Test Item Value Reference Range Comments TOTAL PROTEIN (BEAKER) 6.6 gm/dL 6.0-8.3 (test gegz=603) ALBUMIN (BEAKER) (test 2.6 g/dL 3.5-5.0 mnbz=7799) ALKALINE PHOSPHATASE 136 U/L 40-150 (BEAKER) (test fwqz=460) BILIRUBIN TOTAL (BEAKER) 0.1 mg/dL 0.2-1.2 (test phjg=337) SODIUM (BEAKER) (test 135 meq/L 136-145 agnn=294) POTASSIUM (BEAKER) (test 4.4 meq/L 3.5-5.1 pgkj=519) CHLORIDE (BEAKER) (test 100 meq/L 98-107 tquf=904) CO2 (BEAKER) (test 25 meq/L 22-29 ojgv=172) BLOOD UREA NITROGEN 7 mg/dL 7-21 (BEAKER) (test mdgm=058) CREATININE (BEAKER) (test 0.81 mg/dL 0.57-1.25 ttng=366) GLUCOSE RANDOM (BEAKER) 378 mg/dL 70-105 (test noyn=515) CALCIUM (BEAKER) (test 8.0 mg/dL 8.4-10.2 oymb=414) AST (SGOT) (BEAKER) (test 7 U/L 5-34 fkua=722) ALT (SGPT) (BEAKER) (test 8 U/L 6-55 enhi=455) EGFR (BEAKER) (test 105 mL/min/1.73 sq ESTIMATED GFR IS NOT xwde=8604) m ACCURATE CREATININE CLEARANCE IN PREDICTING GLOMERULAR FILTRATION RATE. ESTIMATED GFR IS NOT APPLICABLE FOR DIALYSIS PATIENTS. POCT-GLUCOSE [id number] 07:27:00 Test Item Value Reference Range Comments POC-GLUCOSE METER (BEAKER) 327 mg/dL 70-110 TESTED AT [address] (test piox=9293) [place] [address] POCT-GLUCOSE [id number] 21:00:00 Test Item Value Reference Range Comments POC-GLUCOSE METER (BEAKER) 218 mg/dL 70-110 TESTED AT [address] (test uvjf=5449) [place] [address] LACTIC ACID, VENOUS, WHOLE [id number] 17:38:00 Test Item Value Reference Range Comments LACTATE BLOOD VENOUS (2) (BEAKER) (test 2.3 mmol/L 0.5-2.2 cwgw=4881) Effective 02/26/2016: Units/Reference Range ChangeNew: 0.5-2.2 mmol/L Previous: 5 -20 mg/dLPOCT-GLUCOSE [id number] 17:13:00 Test Item Value Reference Range Comments POC-GLUCOSE METER (BEAKER) 97 mg/dL 70-110 TESTED AT [address] (test fybp=8026) [place] [id number] KETONE, [id number] 15:38:00 Test Item Value Reference Range Comments KETONES, BLOOD (BEAKER) (test kzpo=2083) 0.1 mmol/L <0.4 CBC W/PLT COUNT & AUTO [id number] 15:28:00 Test Item Value Reference Range Comments WHITE BLOOD CELL COUNT (BEAKER) (test zemj=008) 16.4 K/ L 4.0-10.0 RED BLOOD CELL COUNT (BEAKER) (test ocwl=377) 4.60 M/ L 4.00-5.00 HEMOGLOBIN (BEAKER) (test fhlx=784) 13.1 GM/DL 12.0-15.0 HEMATOCRIT (BEAKER) (test zcfd=532) 41.3 % 36.0-45.0 MEAN CORPUSCULAR VOLUME (BEAKER) (test mhhk=516) 89.6 fL 82.0-99.0 MEAN CORPUSCULAR HEMOGLOBIN (BEAKER) (test 28.4 pg 27.0-33.0 eiwy=819) MEAN CORPUSCULAR HEMOGLOBIN CONC (BEAKER) (test 31.7 GM/DL 32.0-36.0 egab=228) RED CELL DISTRIBUTION WIDTH (BEAKER) (test 14.1 % 10.3-14.2 cfsn=063) PLATELET COUNT (BEAKER) (test yqnu=701) 358 K/CU MM 150-430 MEAN PLATELET VOLUME (BEAKER) (test fixx=322) 9.5 fL 6.5-10.5 NUCLEATED RED BLOOD CELLS (BEAKER) (test 0 /100 WBC 0-0 erym=038) NEUTROPHILS RELATIVE PERCENT (BEAKER) (test 82 % dsju=218) LYMPHOCYTES RELATIVE PERCENT (BEAKER) (test 9 % qkaf=149) MONOCYTES RELATIVE PERCENT (BEAKER) (test 7 % zear=018) EOSINOPHILS RELATIVE PERCENT (BEAKER) (test 2 % sjhn=642) BASOPHILS RELATIVE PERCENT (BEAKER) (test 0 % twoy=594) NEUTROPHILS ABSOLUTE COUNT (BEAKER) (test 13.40 K/ L 1.80-8.00 vfop=473) LYMPHOCYTES ABSOLUTE COUNT (BEAKER) (test 1.53 K/ L 1.48-4.50 vipb=827) MONOCYTES ABSOLUTE COUNT (BEAKER) (test 1.07 K/ L 0.00-1.30 hayp=886) EOSINOPHILS ABSOLUTE COUNT (BEAKER) (test 0.31 K/ L 0.00-0.50 lnzt=990) BASOPHILS ABSOLUTE COUNT (BEAKER) (test 0.01 K/ L 0.00-0.20 knwl=885) 0.00COMPREHENSIVE METABOLIC [id number] 15:27:00 Test Item Value Reference Range Comments TOTAL PROTEIN (BEAKER) 7.2 gm/dL 6.0-8.3 (test bfuj=955) ALBUMIN (BEAKER) (test 2.8 g/dL 3.5-5.0 hgkx=7396) ALKALINE PHOSPHATASE 157 U/L 40-150 (BEAKER) (test tzpt=849) BILIRUBIN TOTAL (BEAKER) 0.1 mg/dL 0.2-1.2 (test vdvv=209) SODIUM (BEAKER) (test 131 meq/L 136-145 nyjc=802) POTASSIUM (BEAKER) (test 4.0 meq/L 3.5-5.1 cpwl=850) CHLORIDE (BEAKER) (test 95 meq/L 98-107 awoz=077) CO2 (BEAKER) (test 25 meq/L 22-29 lfyh=569) BLOOD UREA NITROGEN 7 mg/dL 7-21 (BEAKER) (test lpls=235) CREATININE (BEAKER) (test 0.95 mg/dL 0.57-1.25 nwzf=657) GLUCOSE RANDOM (BEAKER) 655 mg/dL 70-105 (test iakh=938) CALCIUM (BEAKER) (test 8.2 mg/dL 8.4-10.2 hluv=812) AST (SGOT) (BEAKER) (test 8 U/L 5-34 nqet=336) ALT (SGPT) (BEAKER) (test 7 U/L 6-55 xrbt=174) EGFR (BEAKER) (test 88 mL/min/1.73 sq m ESTIMATED GFR IS NOT ljff=7036) ACCURATE CREATININE CLEARANCE IN PREDICTING GLOMERULAR FILTRATION RATE. ESTIMATED GFR IS NOT APPLICABLE FOR DIALYSIS PATIENTS. POCT-LACTIC ACID, [id number] 15:01:00 Test Item Value Reference Range Comments POC-LACTIC ACID, VENOUS 2.5 mmol/L 0.9-1.7 TESTED AT [address] ([facility] (test nwbw=6217) [facility] [address] POCT-GLUCOSE [id number] 14:59:00 Test Item Value Reference Range Comments POC-GLUCOSE METER (BEAKER) > mg/dL 70-110 OUTSIDE MEASURING RANGETESTED AT (test fjjm=6382) [address] [address] FUNGUS CULTURE + [id number] 19:28:00 Test Item Value Reference Range Comments CULTURE (BEAKER) (test 2+ Clau albicans ahgu=7175) FUNGUS SMEAR (BEAKER) No fungi seen (test mtrm=3239) CULTURE (BEAKER) (test 1 out of 3 media Aspergillus yjex=23838) fumigatusThis is an appended report. These organism results have been appended to a previously final verified report. CBC W/PLT COUNT & AUTO [id number] 14:39:00 Test Item Value Reference Range Comments WHITE BLOOD CELL COUNT (BEAKER) (test uxqy=221) 13.5 K/ L 4.0-10.0 RED BLOOD CELL COUNT (BEAKER) (test gufh=524) 3.70 M/ L 4.00-5.00 HEMOGLOBIN (BEAKER) (test qmea=769) 10.5 GM/DL 12.0-15.0 HEMATOCRIT (BEAKER) (test nixk=053) 34.5 % 36.0-45.0 MEAN CORPUSCULAR VOLUME (BEAKER) (test bzhf=417) 93.4 fL 82.0-99.0 MEAN CORPUSCULAR HEMOGLOBIN (BEAKER) (test 28.4 pg 27.0-33.0 smpi=710) MEAN CORPUSCULAR HEMOGLOBIN CONC (BEAKER) (test 30.4 GM/DL 32.0-36.0 cuqn=576) RED CELL DISTRIBUTION WIDTH (BEAKER) (test 15.7 % 10.3-14.2 sbox=870) PLATELET COUNT (BEAKER) (test ddoc=281) 376 K/CU MM 150-430 MEAN PLATELET VOLUME (BEAKER) (test jkqd=663) 8.4 fL 6.5-10.5 NUCLEATED RED BLOOD CELLS (BEAKER) (test 1 /100 WBC 0-0 nbeu=717) NEUTROPHILS RELATIVE PERCENT (BEAKER) (test 88 % bvfs=270) LYMPHOCYTES RELATIVE PERCENT (BEAKER) (test 8 % hcjw=232) MONOCYTES RELATIVE PERCENT (BEAKER) (test 3 % ixmo=711) EOSINOPHILS RELATIVE PERCENT (BEAKER) (test 0 % oniu=761) BASOPHILS RELATIVE PERCENT (BEAKER) (test 0 % gsfb=326) NEUTROPHILS ABSOLUTE COUNT (BEAKER) (test 11.90 K/ L 1.80-8.00 ldgu=973) LYMPHOCYTES ABSOLUTE COUNT (BEAKER) (test 1.03 K/ L 1.48-4.50 outy=665) MONOCYTES ABSOLUTE COUNT (BEAKER) (test 0.45 K/ L 0.00-1.30 udoq=904) EOSINOPHILS ABSOLUTE COUNT (BEAKER) (test 0.07 K/ L 0.00-0.50 pfar=880) BASOPHILS ABSOLUTE COUNT (BEAKER) (test 0.05 K/ L 0.00-0.20 ixay=824) 0.000.530.000.000.000.00(MANUAL DIFFERENTIAL)2016-12-12 14:39:00 Test Item Value Reference Range Comments TOTAL COUNTED (BEAKER) (test axfd=9151) WBC MORPHOLOGY (BEAKER) (test tqdb=104) Normal PLT MORPHOLOGY (BEAKER) (test wrtb=107) Normal RBC MORPHOLOGY (BEAKER) (test slnj=339) Normal [id number] 08:09:00 Test Item Value Reference Range Comments MAGNESIUM (BEAKER) (test etyo=331) 1.4 mg/dL 1.6-2.6 BASIC METABOLIC [id number] 08:09:00 Test Item Value Reference Range Comments SODIUM (BEAKER) (test 137 meq/L 136-145 rxfm=809) POTASSIUM (BEAKER) (test 4.1 meq/L 3.5-5.1 umgn=828) CHLORIDE (BEAKER) (test 98 meq/L 98-107 yhsr=056) CO2 (BEAKER) (test 18 meq/L 22-29 xyqt=126) BLOOD UREA NITROGEN 14 mg/dL 7-21 (BEAKER) (test gwya=812) CREATININE (BEAKER) (test 0.98 mg/dL 0.57-1.25 ebqu=156) GLUCOSE RANDOM (BEAKER) 287 mg/dL 70-105 (test rfyv=958) CALCIUM (BEAKER) (test 8.9 mg/dL 8.4-10.2 xwkk=458) EGFR (BEAKER) (test 85 mL/min/1.73 sq m ESTIMATED GFR IS NOT pcsp=9765) ACCURATE CREATININE CLEARANCE IN PREDICTING GLOMERULAR FILTRATION RATE. ESTIMATED GFR IS NOT APPLICABLE FOR DIALYSIS PATIENTS. POCT-GLUCOSE [id number] 15:20:00 Test Item Value Reference Range Comments POC-GLUCOSE METER (BEAKER) 212 mg/dL 70-110 TESTED AT [facility] [address] [facility] (test bozi=4527) [facility] [address] POCT-GLUCOSE [id number] 13:55:00 Test Item Value Reference Range Comments POC-GLUCOSE METER (BEAKER) 49 mg/dL 70-110 Notified JORDON STAPLETON/TESTED AT [facility] (test awrv=8545) [address] [place] [address] POCT-GLUCOSE [id number] 12:02:00 Test Item Value Reference Range Comments POC-GLUCOSE METER (BEAKER) 386 mg/dL 70-110 Notified JORDON STAPLETON/TESTED AT [facility] (test qiqv=2634) [address] [place] [address] POCT-GLUCOSE [id number] 08:21:00 Test Item Value Reference Range Comments POC-GLUCOSE METER (BEAKER) 173 mg/dL 70-110 TESTED AT [address] (test ihdc=3275) [facility] [address] POCT-GLUCOSE [id number] 23:54:00 Test Item Value Reference Range Comments POC-GLUCOSE METER (BEAKER) 186 mg/dL 70-110 TESTED AT [address] (test uooa=3766) [place] [id number] POCT-GLUCOSE [id number] 20:57:00 Test Item Value Reference Range Comments POC-GLUCOSE METER (BEAKER) 292 mg/dL 70-110 TESTED AT [address] (test dhvd=9350) [facility] [address] POCT-GLUCOSE [id number] 18:30:00 Test Item Value Reference Range Comments POC-GLUCOSE METER (BEAKER) > mg/dL 70-110 OUTSIDE MEASURING RANGENotified RN (test dkld=7850) or MD Patient refused repeat test/TESTED AT [address] [address] POCT-GLUCOSE [id number] 12:56:00 Test Item Value Reference Range Comments POC-GLUCOSE METER (BEAKER) 233 mg/dL 70-110 TESTED AT [address] (test uwxu=0079) [facility] [address] BLOOD [id number] 10:00:00 Test Item Value Reference Range Comments CULTURE (BEAKER) (test mptl=1266) No growth in 5 days BLOOD [id number] 10:00:00 Test Item Value Reference Range Comments CULTURE (BEAKER) (test qpii=4138) No growth in 5 days CBC W/PLT COUNT & AUTO [id number] 09:19:00 Test Item Value Reference Range Comments WHITE BLOOD CELL COUNT (BEAKER) (test wckn=756) 10.9 K/ L 4.0-10.0 RED BLOOD CELL COUNT (BEAKER) (test kiju=643) 3.65 M/ L 4.00-5.00 HEMOGLOBIN (BEAKER) (test uxjo=718) 9.9 GM/DL 12.0-15.0 HEMATOCRIT (BEAKER) (test ocms=611) 32.7 % 36.0-45.0 MEAN CORPUSCULAR VOLUME (BEAKER) (test xgrk=023) 89.5 fL 82.0-99.0 MEAN CORPUSCULAR HEMOGLOBIN (BEAKER) (test 27.2 pg 27.0-33.0 xlre=375) MEAN CORPUSCULAR HEMOGLOBIN CONC (BEAKER) (test 30.4 GM/DL 32.0-36.0 nzyo=635) RED CELL DISTRIBUTION WIDTH (BEAKER) (test 14.8 % 10.3-14.2 nzwi=082) PLATELET COUNT (BEAKER) (test jhno=028) 357 K/CU MM 150-430 MEAN PLATELET VOLUME (BEAKER) (test ejbo=052) 8.8 fL 6.5-10.5 NUCLEATED RED BLOOD CELLS (BEAKER) (test 0 /100 WBC 0-0 wbtk=197) NEUTROPHILS RELATIVE PERCENT (BEAKER) (test 60 % kohs=779) LYMPHOCYTES RELATIVE PERCENT (BEAKER) (test 29 % hwcx=597) MONOCYTES RELATIVE PERCENT (BEAKER) (test 9 % mhhc=840) EOSINOPHILS RELATIVE PERCENT (BEAKER) (test 3 % ewaf=562) BASOPHILS RELATIVE PERCENT (BEAKER) (test 0 % assl=849) NEUTROPHILS ABSOLUTE COUNT (BEAKER) (test 6.50 K/ L 1.80-8.00 iqqs=164) LYMPHOCYTES ABSOLUTE COUNT (BEAKER) (test 3.15 K/ L 1.48-4.50 cwtt=544) MONOCYTES ABSOLUTE COUNT (BEAKER) (test 0.94 K/ L 0.00-1.30 aydj=003) EOSINOPHILS ABSOLUTE COUNT (BEAKER) (test 0.27 K/ L 0.00-0.50 ueki=703) BASOPHILS ABSOLUTE COUNT (BEAKER) (test 0.02 K/ L 0.00-0.20 pcfj=316) [id number] 07:34:00 Test Item Value Reference Range Comments MAGNESIUM (BEAKER) (test kkbc=032) 1.4 mg/dL 1.6-2.6 BASIC METABOLIC [id number] 07:34:00 Test Item Value Reference Range Comments SODIUM (BEAKER) (test 133 meq/L 136-145 ehro=871) POTASSIUM (BEAKER) (test 4.6 meq/L 3.5-5.1 vkpe=977) CHLORIDE (BEAKER) (test 101 meq/L 98-107 jowf=726) CO2 (BEAKER) (test 24 meq/L 22-29 ikfs=323) BLOOD UREA NITROGEN 15 mg/dL 7-21 (BEAKER) (test sbzb=677) CREATININE (BEAKER) (test 0.68 mg/dL 0.57-1.25 gcxu=962) GLUCOSE RANDOM (BEAKER) 284 mg/dL 70-105 (test wrzy=813) CALCIUM (BEAKER) (test 9.1 mg/dL 8.4-10.2 rzkj=717) EGFR (BEAKER) (test 129 mL/min/1.73 sq m ESTIMATED GFR IS NOT eozq=1760) ACCURATE CREATININE CLEARANCE IN PREDICTING GLOMERULAR FILTRATION RATE. ESTIMATED GFR IS NOT APPLICABLE FOR DIALYSIS PATIENTS. POCT-GLUCOSE [id number] 21:23:00 Test Item Value Reference Range Comments POC-GLUCOSE METER (BEAKER) 230 mg/dL 70-110 TESTED AT [address] (test jtwp=5010) [facility] [address] POCT-GLUCOSE [id number] 17:41:00 Test Item Value Reference Range Comments POC-GLUCOSE METER (BEAKER) 195 mg/dL 70-110 TESTED AT [address] (test ldbb=2411) [facility] [id number] CBC W/PLT COUNT & AUTO [id number] 15:23:00 Test Item Value Reference Range Comments WHITE BLOOD CELL COUNT (BEAKER) (test xnxo=381) 12.2 K/ L 4.0-10.0 RED BLOOD CELL COUNT (BEAKER) (test wppo=133) 3.75 M/ L 4.00-5.00 HEMOGLOBIN (BEAKER) (test zhkx=035) 10.3 GM/DL 12.0-15.0 HEMATOCRIT (BEAKER) (test ycii=265) 33.5 % 36.0-45.0 MEAN CORPUSCULAR VOLUME (BEAKER) (test pych=384) 89.5 fL 82.0-99.0 MEAN CORPUSCULAR HEMOGLOBIN (BEAKER) (test 27.5 pg 27.0-33.0 fiej=367) MEAN CORPUSCULAR HEMOGLOBIN CONC (BEAKER) (test 30.7 GM/DL 32.0-36.0 qaiw=213) RED CELL DISTRIBUTION WIDTH (BEAKER) (test 14.7 % 10.3-14.2 nldq=884) PLATELET COUNT (BEAKER) (test corh=048) 354 K/CU MM 150-430 MEAN PLATELET VOLUME (BEAKER) (test vtif=820) 8.8 fL 6.5-10.5 NUCLEATED RED BLOOD CELLS (BEAKER) (test 0 /100 WBC 0-0 aylq=986) NEUTROPHILS RELATIVE PERCENT (BEAKER) (test 73 % osln=056) LYMPHOCYTES RELATIVE PERCENT (BEAKER) (test 18 % zvba=023) MONOCYTES RELATIVE PERCENT (BEAKER) (test 8 % xmdg=770) EOSINOPHILS RELATIVE PERCENT (BEAKER) (test 1 % lohd=843) BASOPHILS RELATIVE PERCENT (BEAKER) (test 0 % fwgq=576) NEUTROPHILS ABSOLUTE COUNT (BEAKER) (test 8.95 K/ L 1.80-8.00 fjdy=383) LYMPHOCYTES ABSOLUTE COUNT (BEAKER) (test 2.13 K/ L 1.48-4.50 xqvd=702) MONOCYTES ABSOLUTE COUNT (BEAKER) (test 0.95 K/ L 0.00-1.30 vkea=202) EOSINOPHILS ABSOLUTE COUNT (BEAKER) (test 0.16 K/ L 0.00-0.50 magq=741) BASOPHILS ABSOLUTE COUNT (BEAKER) (test 0.01 K/ L 0.00-0.20 nels=749) 0.000.520.000.000.000.00(MANUAL DIFFERENTIAL)2016-12-09 15:23:00 Test Item Value Reference Range Comments TOTAL COUNTED (BEAKER) (test yglr=1764) WBC MORPHOLOGY (BEAKER) (test gezk=748) Normal PLT MORPHOLOGY (BEAKER) (test vden=528) Normal RBC MORPHOLOGY (BEAKER) (test nrcq=724) Normal POCT-GLUCOSE [id number] 11:49:00 Test Item Value Reference Range Comments POC-GLUCOSE METER (BEAKER) 370 mg/dL 70-110 Notified RN or MD Patient (test jizu=5120) refused repeat test/TESTED AT [facility] [address] [facility] [address] POCT-GLUCOSE [id number] 11:45:00 Test Item Value Reference Range Comments POC-GLUCOSE METER ([facility] 424 mg/dL 70-110 Notified RN or MD Patient (test uyur=9922) refused repeat test/TESTED AT [facility] [address] [facility] [address] CF RESPIRATORY [id number] 10:46:00 Test Item Value Reference Range Comments CULTURE ([facility] (test PSEUDOMONAS 4+ Pseudomonas sovc=4208) AERUGINOSA aeruginosa Amikacin (test code=1) Susceptible 0-16 , Resistant <0 or >16 Aztreonam (test Susceptible 0-8 , code=32) Resistant <0 or >8 Cefepime (test code=51) Susceptible 0-8 , Resistant <0 or >8 Ceftazidime (test Susceptible 0-8 , code=27) Resistant <0 or >8 Ciprofloxacin (test Susceptible 0-1 , code=7) Resistant <0 or >1 Doripenem (test Susceptible 0-2 , nhpg=645) Resistant <0 or >2 Gentamicin (test Susceptible [...] , code=25) Resistant <0 or >4 CULTURE ([facility]) (test PSEUDOMONAS 4+ Pseudomonas crbd=62096) AERUGINOSA aeruginosaof a second type Amikacin (test code=1) Susceptible 0-16 , Resistant <0 or >16 Aztreonam (test Susceptible 0-8 , code=32) Resistant <0 or >8 Cefepime (test code=51) Susceptible 0-8 , Resistant <0 or >8 Ceftazidime (test Susceptible 0-8 , code=27) Resistant <0 or >8 Ciprofloxacin (test Susceptible 0-1 , code=7) Resistant <0 or >1 Doripenem (test Susceptible 0-2 , toda=018) Resistant <0 or >2 Gentamicin (test Susceptible [...] , code=25) Resistant <0 or >4 CULTURE (yoonewAKER) (test PSEUDOMONAS Pseudomonas thvz=76202) AERUGINOSA aeruginosaof a third type Amikacin (test code=1) Susceptible 0-16 , Resistant <0 or >16 Aztreonam (test Susceptible 0-8 , code=32) Resistant <0 or >8 Cefepime (test code=51) Susceptible 0-8 , Resistant <0 or >8 Ceftazidime (test Susceptible 0-8 , code=27) Resistant <0 or >8 Ciprofloxacin (test Susceptible 0-1 , code=7) Resistant <0 or >1 Doripenem (test Susceptible 0-2 , fvbf=688) Resistant <0 or >2 Gentamicin (test Susceptible [...] or >4 3+ Normal respiratory derick presentPOCT-GLUCOSE [id number] 10:07:00 Test Item Value Reference Range Comments POC-GLUCOSE METER (BEAKER) 112 mg/dL 70-110 TESTED AT [address] (test etjn=9973) [facility] [address] [id number] 07:09:00 Test Item Value Reference Range Comments MAGNESIUM (BEAKER) (test usnj=001) 1.6 mg/dL 1.6-2.6 BASIC METABOLIC [id number] 07:09:00 Test Item Value Reference Range Comments SODIUM (BEAKER) (test 135 meq/L 136-145 wlqr=721) POTASSIUM (BEAKER) (test 4.0 meq/L 3.5-5.1 pavh=423) CHLORIDE (BEAKER) (test 101 meq/L 98-107 kuct=676) CO2 (BEAKER) (test 27 meq/L 22-29 tunq=971) BLOOD UREA NITROGEN 8 mg/dL 7-21 (BEAKER) (test hutk=024) CREATININE (BEAKER) (test 0.55 mg/dL 0.57-1.25 ewaa=640) GLUCOSE RANDOM (BEAKER) 133 mg/dL 70-105 (test sanv=707) CALCIUM (BEAKER) (test 8.8 mg/dL 8.4-10.2 pjdj=869) EGFR (BEAKER) (test 165 mL/min/1.73 sq m ESTIMATED GFR IS NOT wsdr=5372) ACCURATE CREATININE CLEARANCE IN PREDICTING GLOMERULAR FILTRATION RATE. ESTIMATED GFR IS NOT APPLICABLE FOR DIALYSIS PATIENTS. POCT-GLUCOSE [id number] 20:59:00 Test Item Value Reference Range Comments POC-GLUCOSE METER (BEAKER) 294 mg/dL 70-110 TESTED AT [address] (test emdj=5059) [place] [id number] POCT-GLUCOSE [id number] 18:18:00 Test Item Value Reference Range Comments POC-GLUCOSE METER (BEAKER) 238 mg/dL 70-110 TESTED AT [address] (test mqbd=2335) [place] [address] [employer] CULTURE + [id number] 17:58:00 Test Item Value Reference Range Comments CULTURE (BEAKER) (test No acid-fast bacilli isolated qxoq=4938) in 42 days AFB SMEAR (BEAKER) (test No acid fast bacilli seen cime=394)
--- OUTSIDE RECORDS SUMMARY | 2019-12-30 18:08 | XMS REPORT | Summary of Care ---
:1990 Author Organization [facility] Address [address] [place] [id number] Care Team Providers Name Role Phone Monique Dooley Primary Care Provider Reason for Visit Reason Comments Cough Congestion Encounter Details Date Type Department Care Team Description 12/06/2019 Office Visit [facility] Family Belle Benjamin, Acute upper Medicine - [place] DIRECTOR OF INFECTION PREVENTION respiratory infection [address]x) [place], [place] [address] [address] [facility] [address] [place] [address] [phone] Allergies Active Allergy Reactions Severity Noted Date Comments Amikacin (Bulk) Other - See comments 06/13/2014 Hearing loss Povidone-Iodine Rash High 06/13/2014 Dexamethasone Sodium Other - See comments 06/13/2014 Turns red Phosphate Dexamethasone Unknown - See High 01/08/2012 Turns red comments, Rash Patient stated "Decadron makes me turn red." Dye Nausea and/or 01/13/2017 Vomiting Iodinated Contrast Media Nausea and/or 01/13/2017 Vomiting documented as of this encounter (statuses as of 12/06/2019) Medications Medication Sig Dispensed Refills Start Date End Date Status sodium chloride 0.9 % Use 3 mL as 0 Active nebulizer solution directed as needed for Wheezing. esomeprazole (NEXIUM) Take 40 mg by mouth 0 Active 40 mg capsule daily with breakfast. cetirizine (ZYRTEC) 10 0 10/20/2015 Active mg tablet minocycline (MINOCIN) 0 10/22/2015 Active 100 mg capsule BETHKIS 300 mg/4 mL 0 11/14/2015 Active Nebu albuterol (ACCUNEB) 1 Ampule. 0 Active 0.63 mg/3 mL nebulizer solution Cholecalciferol, Take 2,000 Units by 0 Active Vitamin D3, (VITAMIN mouth. D3) 2,000 unit tablet fluticasone 50 Use 1 [place] in each 0 Active mcg/actuation nasal nostril. spray insulin lispro (HUMALOG Inject 0 02/01/2015 Active KWIKPEN) 100 unit/mL subcutaneously as pen injector directed. Inject 1 unit per every 20 carbohydrates subcutaneously with every meal. levalbuterol (XOPENEX Inhale 2 Puffs. 0 Active HFA) 45 mcg/actuation inhaler Ermiyh-Bvljcudf-Feyjstl Take 5 Caps by 0 Active (ZENPEP) 5,000-17,000 mouth. -27,000 unit capsule ergocalciferol, vitamin Take 50,000 Units 0 Active d2, (CALCIFEROL) 50,000 by mouth. unit capsule dornase brittani 2.5 mg. 0 08/08/2015 Active (PULMOZYME) 1 mg/mL Soln nebulizer solution tobramycin (KEREN) 300 300 mg. 0 Active mg/5 mL nebulizer solution zolpidem (AMBIEN) 10 mg Take 10 mg by 0 Active tablet mouth. lumacaftor-ivacaftor Take by mouth. 0 Active (ORKAMBI) 200-125 mg Tab lidocaine 5 % (700 Apply 1 Patch to 0 12/18/2016 Active mg/patch) patch skin. multivit with min Take 1 capsule by 0 12/21/2016 Active #[id number] (DEKAS mouth. PLUS, FOLIC ACID,) 200 mcg-1,000 mcg-10 mg Cap dornase brittani Inhale 2.5 mg. 0 12/18/2016 Active (PULMOZYME) 1 mg/mL Soln nebulizer solution Insulin Detemir inject 20 Units 0 01/05/2017 Active (LEVEMIR FLEXTOUCH) 100 under the skin. unit/mL (3 mL) injection chlorhexidine 0.12 % 3 11/18/2016 Active mouthwash ADVAIR DISKUS 500-50 5 12/19/2016 Active mcg/dose inhalation disk CREON 24,000-76,000 5 12/21/2016 Active -120,000 unit capsule predniSONE 20 mg tablet TK 3 TS PO D FOR 7 0 12/25/2016 Active DAYS traMADOL 50 mg tablet TAKE 2 TABLET PO Q 0 10/29/2016 Active 6 HOURS PRN BANOPHEN 50 mg capsule 0 12/03/2017 Active nortriptyline 10 mg TK 1 C PO Q NIGHT 11 12/27/2017 Active capsule nystatin 100,000 SHAKE LQ AND TK 5 0 12/20/2017 Active unit/mL suspension ML PO QID SAIRA PEN NEEDLE 32 USE DIRECTED TO 5 11/12/2017 Active gauge x 532" Ndle INJECT 7 TIMES DAILY voriconazole 200 mg TK 1 T PO BID 5 01/10/2018 Active tablet mupirocin 2 % Apply to area(s) 3 22 g 0 06/08/2019 Active ointmentIndications: (three) times Papule daily. diltiazem 120 mg 24 hr Take 1 tablet by 60 tablet 2 07/05/2019 Active tabletIndications: mouth 2 (two) times Essential hypertension daily. carvedilol 12.5 mg Take 1 tablet by 60 tablet 3 08/15/2019 Active tabletIndications: mouth 2 (two) times Essential hypertension daily with meals. azithromycin 250 mg Take 1 tablet by 1 Package 0 11/16/2019 Active tabletIndications: mouth daily. Take Acute URI 500 mg day 1, then 250 mg days 2 to 5. brompheniramine-pseudoe Take 5 mL by mouth 175 mL 0 12/06/2019 Active phedrine-DM (BROMFED 4 (four) times DM) 2-30-10 mg/5 mL daily as needed for syrupIndications: Acute Congestion/Allergie upper respiratory s or Cough. infection methylPREDNISolone 4 mg Take by mouth 21 Each 0 12/06/2019 Active tabletsIndications: SEE-INSTRUCTIONS. 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 Cystic fibrosis 07/18/2014 Need for HPV vaccine 07/18/2014 documented as of this encounter (statuses as of 12/06/2019) Resolved Problems Problem Noted Date Resolved Date Contraceptive patch status 11/28/2015 01/13/2017 documented as of this encounter (statuses as of 12/06/2019) Immunizations Name Administration Dates Next Due HPV9 05/22/2016, 01/21/2016, 11/22/2015 Td 10/25/2006 Tdap 01/12/2018 01/13/2028 documented as of this encounter Social History Tobacco Use Types Packs/Day Years Used Date Never Smoker Smokeless Tobacco: Never Used Alcohol Use Drinks/Week oz/Week Comments Not Currently 0 Standard drinks or equivalent 0.0 Alcohol Habits Answer Date Recorded How often do you have a drink containing alcohol? Never 05/02/2019 How many drinks containing alcohol do you have on a typical Not asked day when you are drinking? How often do you have six or more drinks on one occasion? Not asked Sex Assigned at Date Recorded Not on file Job Start Date Occupation Industry Not on file Not on file Not on file Travel History Travel Start Travel End No recent travel history available. documented as of this encounter Last Filed Vital Signs Vital Sign Reading Time Taken Comments Blood Pressure 118/79 12/06/2019 12:36 PM GYNECOLOGY TEACHER Pulse 101 12/06/2019 1:13 PM GYNECOLOGY TEACHER Temperature 36.8 C (98.3 F) 12/06/2019 12:36 PM GYNECOLOGY TEACHER Respiratory Rate - - Oxygen Saturation 97% 12/06/2019 1:13 PM GYNECOLOGY TEACHER Inhaled Oxygen Concentration - - Weight 49.9 kg (110 lb) 12/06/2019 12:36 PM GYNECOLOGY TEACHER Height - - Body Mass Index 20.78 11/16/2019 11:44 AM GYNECOLOGY TEACHER documented in this encounter Patient Instructions Patient InstructionsBelle Benjamin FNP - 12/06/2019 12:40 PM CSTGeneral home recommendations include: Rest Increase fluids -Hydration with clear liquids. Vitamin C Warm salt water gargles for sore throat. Breath humidified air (steam) Sipping warm drinks may help. Warm Compresses (if sinus pressure or pain). Hand Hygiene (with alcohol gels or hand washing) May take Tylenol or Ibuprofen as needed for pain or fever. Honey 10mL (2 teaspoons) has been shown to relieve cough at bedtime. Dark Chocolate helps with cough (xanthenes) Avoidance of cigarette smoke, alcoholic drinks, diving into deep water and air travel is useful. Irrigate your nose with normal saline moisture spray 2 or 3 times a day. You may use a spray, squeeze bottle, or nasal pot. - Advised to follow up with PCP, Urgent Care, or go to the nearest Emergency Department sooner for any new, worsening, persistent, or concerning symptoms. COLOGY TEACHER documented in this encounter Progress Notes Belle Benjamin FNP - 12/06/2019 12:40 PM CST Cc: Chief Complaint Patient presents with Cough Congestion Ester Aguilar is a 29 year old female that presents to the clinic for a cough that started yesterday and congestion that started today. She was last seen by Monique in October 2019 for acute URI and was feeling better after treatment. She has an active history of cystic fibrosis that she's taking Prednisone 20mg daily, prescribed by mis specialist. Next pulmonology appointment is 12/21/2019. URI Presenting symptoms: congestion, cough and sore throat Presenting symptoms: no ear pain and no fever Cough: Cough characteristics: Productive and harsh Sputum characteristics: Green Severity: Moderate Onset quality: Sudden Duration: 2 days Timing: Constant Progression: Worsening Chronicity: New Relieved by: albuterol inhaler. Worsened by: Nothing Ineffective treatments: None tried Associated symptoms: no arthralgias, no headaches, no myalgias and no wheezing Risk factors: no sick contacts Allergies Ester is allergic to betadine [povidone-iodine]; dexamethasone; amikacin (bulk) ; decadron [dexamethasone sodium phosphate]; dye; and iodinated contrast media. Medications Outpatient Medications Prior to Visit Medication Sig Dispense Refill azithromycin 250 mg tablet Take 1 tablet by mouth daily. Take 500 mg day 1, then 250 mg days 2 to 5. 1 Package 0 carvedilol 12.5 mg tablet Take 1 tablet by mouth 2 (two) times daily with meals. 60 tablet 3 diltiazem 120 mg 24 hr tablet Take 1 tablet by mouth 2 (two) times daily. 60 tablet 2 mupirocin 2 % ointment Apply to area(s) 3 (three) times daily. 22 g 0 BANOPHEN 50 mg capsule 0 SAIRA PEN NEEDLE 32 gauge x 5/32" Ndle USE DIRECTED TO INJECT 7 TIMES DAILY 5 nortriptyline 10 mg capsule TK 1 C PO Q NIGHT 11 nystatin 100,000 unit/mL suspension SHAKE LQ AND TK 5 ML PO QID 0 voriconazole 200 mg tablet TK 1 T PO BID 5 ADVAIR DISKUS 500-50 mcg/dose inhalation disk 5 chlorhexidine 0.12 % mouthwash 3 CREON 24,000-76,000 -120,000 unit capsule 5 dornase brittani (PULMOZYME) 1 mg/mL Soln nebulizer solution Inhale 2.5 mg. Insulin Detemir (LEVEMIR FLEXTOUCH) 100 unit/mL (3 mL) injection inject 20 Units under the skin. lidocaine 5 % (700 mg/patch) patch Apply 1 Patch to skin. multivit with min #[id number]-[id number] (DEKAS PLUS, FOLIC ACID,) 200 mcg-1,000 mcg- 10 mg Cap Take 1 capsule by mouth. predniSONE 20 mg tablet TK 3 TS PO D FOR 7 DAYS 0 traMADOL 50 mg tablet TAKE 2 TABLET PO Q 6 HOURS PRN 0 lumacaftor-ivacaftor (ORKAMBI) 200-125 mg Tab Take by mouth. albuterol (ACCUNEB) 0.63 mg/3 mL nebulizer solution 1 Ampule. BETHKIS 300 mg/4 mL Nebu cetirizine (ZYRTEC) 10 mg tablet Cholecalciferol, Vitamin D3, (VITAMIN D3) 2,000 unit tablet Take 2,000 Units by mouth. dornase brittani (PULMOZYME) 1 mg/mL Soln nebulizer solution 2.5 mg. ergocalciferol, vitamin d2, (CALCIFEROL) 50,000 unit capsule Take 50,000 Units by mouth. fluticasone 50 mcg/actuation nasal spray Use 1 [place] in each nostril. insulin lispro (HUMALOG KWIKPEN) 100 unit/mL pen injector Inject subcutaneously as directed. Inject 1 unit per every 20 carbohydrates subcutaneously with every meal. levalbuterol (XOPENEX HFA) 45 mcg/actuation inhaler Inhale 2 Puffs. Hvipbe-Mpmymyny-Sytimwe (ZENPEP) 5,000-17,000 -27,000 unit capsule Take 5 Caps by mouth. minocycline (MINOCIN) 100 mg capsule tobramycin (KEREN) 300 mg/5 mL nebulizer solution 300 mg. zolpidem (AMBIEN) 10 mg tablet Take 10 mg by mouth. esomeprazole (NEXIUM) 40 mg capsule Take 40 mg by mouth daily with breakfast. sodium chloride 0.9 % nebulizer solution Use 3 mL as directed as needed for Wheezing. No facility-administered medications prior to visit. 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 Social Needs Financial resource strain: Not on file Food insecurity: Worry: Not on file Inability: Not on file Transportation needs: Medical: Not on file Non-medical: Not on file Tobacco Use Smoking status: Never Smoker Smokeless tobacco: Never Used Substance and Sexual Activity Alcohol use: Not Currently Alcohol/week: 0.0 standard drinks Frequency: Never Drug use: No Sexual activity: Not Currently Partners: Male control/protection: Injection Lifestyle Physical activity: Days per week: Not on file Minutes per session: Not on file Stress: Not on file Relationships Social connections: Talks on phone: Not on file Gets together: Not on file Attends druze service: Not on file Active member of club or organization: Not on file Attends meetings of clubs or organizations: Not on file Relationship status: Not on file Intimate partner violence: Fear of current or ex partner: Not on file Emotionally abused: Not on file Physically abused: Not on file Forced sexual activity: Not on file Other Topics Concern Service Not Asked Blood Transfusions Not Asked Caffeine Concern Not Asked Occupational Exposure Not Asked Hobby Hazards Not Asked Sleep Concern Not Asked Stress Concern Not Asked Weight Concern Not Asked Special Diet Not Asked Back Care Not Asked Exercise Not Asked Bike Helmet Not Asked Seat Belt Yes Self-Exams Not Asked Social History Narrative Denies domestic abuse at home Mandaen Preference: [employer] Family History Problem Relation Age of Onset No Significant Medical Problems Mother No Significant Medical Problems Father Arthritis NoFHx Asthma NoFHx Breast Cancer NoFHx defects NoFHx Colon Cancer NoFHx Ovarian Cancer NoFHx Uterine Cancer NoFHx Depression NoFHx Diabetes NoFHx Cancer NoFHx Genetic NoFHx Heart NoFHx High cholesterol NoFHx Mental retardation NoFHx Neurological NoFHx Hypertension NoFHx Osteoporosis NoFHx Psychiatry NoFHx Other - see comments NoFHx Review of Systems Constitutional: Negative for chills and fever. HENT: Positive for congestion, postnasal drip, sore throat and voice change ( hoarseness). Negative for ear discharge and ear pain. Respiratory: Positive for cough and shortness of breath. Negative for wheezing. Gastrointestinal: Negative for diarrhea and vomiting. Musculoskeletal: Negative for arthralgias and myalgias. Skin: Negative for rash. Neurological: Negative for headaches. Psychiatric/Behavioral: Negative for agitation and confusion. Vital Signs BP 118/79 | Pulse 101 | Temp 36.8 C (98.3 F) (Tympanic) | Wt 110 lb ( 49.9 kg) | LMP 11/13/2019 | SpO2 97% | BMI 20.78 kg/m Vitals: 12/06/19 1236 12/06/19 1313 BP: 118/79 Pulse: 102 101 Temp: 36.8 C (98.3 F) TempSrc: Tympanic SpO2: 94% 97% Weight: 110 lb (49.9 kg) Physical Exam Constitutional: She is oriented to person, place, and time. She appears well- developed and well-nourished. No distress. HENT: Head: Normocephalic and atraumatic. Right Ear: Tympanic membrane and ear canal normal. Left Ear: Tympanic membrane and ear canal normal. Nose: Nose normal. Mouth/Throat: Uvula is midline, oropharynx is clear and moist and mucous membranes are normal. Eyes: Conjunctivae are normal. Cardiovascular: Normal rate, regular rhythm, normal heart sounds and intact distal pulses. Pulmonary/Chest: Effort normal. No respiratory distress. She has no wheezes. She has no rhonchi. Shehas no rales. Lymphadenopathy: Head (right side): No submandibular and no tonsillar adenopathy present. Head (left side): No submandibular and no tonsillar adenopathy present. She has no cervical adenopathy. Neurological: She is alert and oriented to person, place, and time. Gait normal. Skin: Skin is warm and dry. No rash noted. Psychiatric: She has a normal mood and affect. Her behavior is normal. Thought content normal. Nursing note and vitals reviewed. Assessment/Plan 1. Acute upper respiratory infection - ipratropium-albuterol (DUONEB) 0.5 mg-3 mg(2.5 mg base)/3 mL nebulizer solution 3 mL now. - mmhyutuotkqpdoj-jzhaduvrnzzdova-NT (BROMFED DM) 2-30-10 mg/5 mL syrup; Take 5 mL by mouth 4 (four)times daily as needed for Congestion/Allergies or Cough. Dispense: 175 mL; Refill: 0 - methylPREDNISolone 4 mg tablets; Take by mouth SEE-INSTRUCTIONS. follow package directions Dispense: 21 Each; Refill: 0 - Patient is afebrile, well appearing with a harsh cough, no acute distress, and lungs are clear to auscultation bilaterally. - patient states that she has an allergy to Dexamethasone but is able to take steroids like prednisone and Methylprednisone without issue. - patient has an appointment scheduled with her mis specialist on 12/21/2019. Advised her to notify mis specialist of recurrent URI symptoms. - education provided to patient includes: Rest Increase fluids -Hydration with clear liquids. Vitamin C Warm salt water gargles for sore throat. Breath humidified air (steam) Sipping warm drinks may help. Warm Compresses (if sinus pressure or pain). Hand Hygiene (with alcohol gels or hand washing) May take Tylenol or Ibuprofen as needed for pain or fever. Honey 10mL (2 teaspoons) has been shown to relieve cough at bedtime. Dark Chocolate helps with cough (xanthenes) Avoidance of cigarette smoke, alcoholic drinks, diving into deep water and air travel is useful. Irrigate your nose with normal saline moisture spray 2 or 3 times a day. You may use a spray, squeeze bottle, or nasal pot. - Advised to follow up with PCP, Urgent Care, or go to the nearest Emergency Department sooner for any new, worsening, persistent, or concerning symptoms. Plan of care, desired health behaviors, goals, and medication discussed with patient. Education resources provided and reviewed with AVS. Patient/guardian/family verbalized understanding & agrees to plan of care. This visit did not involve counseling and coordination that comprised more than 50% of the visit time. Barriers to care: none. Ability to manage care: well. Belle Benjamin APRN, FNP-C 12/06/2019 1:05 PM documented in this encounter Plan of Treatment Date Type Specialty Care Team Description 02/13/2020 Office Visit Obstetrics & Gynecology Arti Cabrales PA-C [address] [place] [phone] Health Maintenance Due Date Last Done Comments HgA1C 1993 VARICELLA VACCINES (1 of 2 - 1993 2-dose childhood series) PNEUMOCOCCAL 0-64 YEARS COMBINED 1998 SERIES (1 of 1 - PPSV23) CREATININE (SERUM) 2002 LDL-C 2002 URINE MICROALBUMIN 2002 FOOT EXAM 2010 INFLUENZA VACCINE (#1) 2019 08/30/2012, 11/27/2011, 08/14/2011, Additional history exists EYE EXAM 03/17/2020 03/17/2019 PAP SMEAR 01/12/2021 01/12/2018, 01/12/2017, 07/17/2014 DTaP,Tdap,and Td Vaccines (3 - Td) 01/13/2028 01/12/2018, 10/25/2006 documented as of this encounter Results Not on filedocumented in this encounter Visit Diagnoses Diagnosis Acute upper respiratory infection - Primary Acute upper respiratory infections of unspecified site documented in this encounter Administered Medications Medication Order MAR Action Action Date Dose Rate Site ipratropium-albuterol (DUONEB) 0.5 Given 12/06/2019 1:14 PM GYNECOLOGY TEACHER 3 mL mg-3 mg(2.5 mg base)/3 mL nebulizer solution 3 mL 3 mL, Inhalation, ONCE, 1 dose, 12/06/19 at 1400, Routine documented in this encounter Insurance Payer Benefit Plan / Subscriber ID Effective Dates Phone Address Type Group [facility] xxxxxxxxx 2014-Present Medicaid COMM PLAN - PLUS MANAGED MEDICAID documented as of this encounter
--- OUTSIDE RECORDS SUMMARY | 2019-12-30 18:08 | XMS REPORT | Summary of Care ---
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 (Primary Dx) [place], [place] [address] [facility] [address] [place] [address] [phone] Allergies Active Allergy Reactions Severity Noted Date [...] 2,000 unit tablet fluticasone 50 Use 1 [place] in each 0 Active mcg/actuation nasal nostril. spray insulin lispro (HUMALOG Inject 0 02/01/2015 Active KWIKPEN) 100 unit/mL subcutaneously as pen injector directed. Inject 1 unit per every 20 carbohydrates subcutaneously with every meal. levalbuterol (XOPENEX Inhale 2 Puffs. 0 Active HFA) 45 mcg/actuation inhaler Zjjomh-Xdhkulmk-Mjlvdnj Take 5 Caps by 0 Active (ZENPEP) [...] Comments Blood Pressure 118/79 12/06/2019 12:36 PM SYSTEMS ADMINISTRATOR Pulse 101 12/06/2019 1:13 PM SYSTEMS ADMINISTRATOR Temperature 36.8 C (98.3 F) 12/06/2019 12:36 PM SYSTEMS ADMINISTRATOR Respiratory Rate - - Oxygen Saturation 97% 12/06/2019 1:13 PM SYSTEMS ADMINISTRATOR Inhaled Oxygen Concentration - - Weight 49.9 kg (110 lb) 12/06/2019 12:36 PM SYSTEMS ADMINISTRATOR Height - - Body Mass Index 20.78 11/16/2019 11:44 AM SYSTEMS ADMINISTRATOR documented in this encounter Patient Instructions Patient [...] any new, worsening, persistent, or concerning symptoms. EMS ADMINISTRATOR documented in this encounter Progress Notes Belle [...] she's taking Prednisone 20mg daily, prescribed by prescription eyeglass maker. Next pulmonology appointment is 12/21/2019. URI Presenting [...] fluticasone 50 mcg/actuation nasal spray Use 1 [place] in each nostril. insulin lispro (HUMALOG KWIKPEN) 100 unit/mL pen injector Inject subcutaneously as directed. Inject 1 unit per every 20 carbohydrates subcutaneously with every meal. levalbuterol (XOPENEX HFA) 45 mcg/actuation inhaler Inhale 2 Puffs. Rlmoko-Tkepplbp-Zjcofrw (ZENPEP) 5,000-17,000 -27,000 unit capsule Take 5 [...] file Gets together: Not on file Attends amish service: Not on file Active member of [...] History Narrative Denies domestic abuse at home Voodoo Preference: Jainism Family History Problem Relation Age of Onset [...] mL nebulizer solution 3 mL now. - ukgtfahrnrdnpzx-zbpzrdqrhkrlpek-LD (BROMFED DM) 2-30-10 mg/5 mL syrup; Take [...] patient has an appointment scheduled with her prescription eyeglass maker on 12/21/2019. Advised her to notify prescription eyeglass maker of recurrent URI symptoms. - education provided [...] Visit Obstetrics & Gynecology Arti Cabrales PA-C [address] [place] [phone] Health Maintenance Due Date Last Done [...] ipratropium-albuterol (DUONEB) 0.5 Given 12/06/2019 1:14 PM SYSTEMS ADMINISTRATOR 3 mL mg-3 mg(2.5 mg base)/3 mL nebulizer solution 3 mL 3 mL, Inhalation, ONCE, 1 dose, 12/06/19 at 1400, Routine documented in this encounter Insurance Payer Benefit Plan / Subscriber ID Effective Dates Phone Address Type Group [facility] xxxxxxxxx 2014-Present Medicaid COMM PLAN - PLUS MANAGED MEDICAID documented as of this encounter
--- OUTSIDE RECORDS SUMMARY | 2019-12-30 18:09 | XMS REPORT | Summary of Care ---
:1990 Author Organization [facility] - [facility] Address [address] [place] [id number] Care Team Providers Name Role Phone Monique Dooley Primary Care Provider Reason for Visit Reason Comments DEPO PROVERA Encounter Details Date Type Department Care Team Description 11/15/2019 Nurse Visit [facility] Women's Arti Cabrales PA-C [address] [place] [address] Surveillance for [facility]- [place] Nurse, [facility] Depo-Provera [address], [facility] ([address] Dx) [place] [address] Allergies Active Allergy Reactions Severity Noted Date [...] as of this encounter (statuses as of 11/15/2019) Medications Medication Sig Dispensed Refills Start Date End Date Status sodium chloride 0.9 Use 3 mL as directed 0 Active % nebulizer solution as needed for Wheezing. esomeprazole Take 40 mg by mouth 0 Active (NEXIUM) 40 mg daily with capsule breakfast. cetirizine (ZYRTEC) 0 10/20/2015 Active 10 mg tablet minocycline 0 10/22/2015 Active (MINOCIN) 100 mg capsule BETHKIS 300 mg/4 mL 0 11/14/2015 Active Nebu albuterol (ACCUNEB) 1 Ampule. 0 Active 0.63 mg/3 mL nebulizer solution Cholecalciferol, Take 2,000 Units by 0 Active Vitamin D3, (VITAMIN mouth. D3) 2,000 unit tablet fluticasone 50 Use 1 [place] in each 0 Active mcg/actuation nasal nostril. spray insulin lispro Inject 0 02/01/2015 Active (HUMALOG KWIKPEN) subcutaneously as 100 unit/mL pen directed. Inject 1 injector unit per every 20 carbohydrates subcutaneously with every meal. levalbuterol Inhale 2 Puffs. 0 Active (XOPENEX HFA) 45 mcg/actuation inhaler Apsfli-Fhhmuybd-Chza Take 5 Caps by 0 Active ase (ZENPEP) mouth. 5,000-17,000 -27,000 unit capsule ergocalciferol, Take 50,000 Units by 0 Active vitamin d2, mouth. (CALCIFEROL) 50,000 unit capsule dornase brittani 2.5 mg. 0 08/08/2015 Active (PULMOZYME) 1 mg/mL Soln nebulizer solution tobramycin (KEREN) 300 mg. 0 Active 300 mg/5 mL nebulizer solution zolpidem (AMBIEN) 10 Take 10 mg by mouth. 0 Active mg tablet lumacaftor-ivacaftor Take by mouth. 0 Active (ORKAMBI) [...] 20 Units 0 01/05/2017 Active (LEVEMIR FLEXTOUCH) under the skin. 100 unit/mL (3 mL) injection chlorhexidine 0.12 % 3 11/18/2016 Active mouthwash ADVAIR DISKUS 500-50 5 12/19/2016 Active mcg/dose inhalation disk CREON 24,000-76,000 5 12/21/2016 Active -120,000 unit capsule predniSONE 20 mg TK 3 TS PO D FOR 7 0 12/25/2016 Active tablet DAYS traMADOL 50 mg TAKE 2 TABLET PO Q 6 0 10/29/2016 Active tablet HOURS PRN BANOPHEN 50 mg 0 12/03/2017 Active capsule nortriptyline 10 mg TK 1 C PO Q NIGHT 11 12/27/2017 Active capsule nystatin 100,000 SHAKE LQ AND TK 5 ML 0 12/20/2017 Active unit/mL suspension PO QID SAIRA PEN NEEDLE 32 USE DIRECTED TO 5 11/12/2017 Active gauge x " Ndle INJECT 7 TIMES DAILY voriconazole 200 mg TK 1 T PO BID 5 01/10/2018 Active tablet mupirocin 2 % Apply to area(s) 3 22 g 0 06/08/2019 Active ointmentIndications: (three) times daily. Papule diltiazem 120 mg 24 Take 1 tablet by 60 tablet 2 07/05/2019 Active hr mouth 2 (two) times tabletIndications: daily. Essential hypertension carvedilol 12.5 mg Take 1 tablet by 60 tablet 3 08/15/2019 Active tabletIndications: mouth 2 (two) times Essential daily with meals. hypertension azithromycin 250 mg Take 1 tablet by 1 Package 0 08/23/2019 Active tabletIndications: mouth daily. Take Acute URI 500 mg day 1, then 250 mg days 2 to 5. 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 Cystic fibrosis 07/18/2014 Need for HPV vaccine 07/18/2014 documented as of this encounter (statuses as of 11/15/2019) Resolved Problems Problem Noted Date Resolved Date Contraceptive patch status 11/28/2015 01/13/2017 documented as of this encounter (statuses as of 11/15/2019) Immunizations Name Administration Dates Next Due HPV9 [...] Sign Reading Time Taken Comments Blood Pressure 128/89 11/15/2019 2:45 PM [employer] Pulse 122 11/15/2019 2:45 PM [employer] Temperature 37.1 C (98.7 F) 11/15/2019 2:45 PM [employer] Respiratory Rate 18 11/15/2019 2:45 PM [employer] Oxygen Saturation - - Inhaled Oxygen Concentration - - Weight 48.1 kg (106 lb) 11/15/2019 2:45 PM [employer] Height 154.9 cm (5' 1") 11/15/2019 2:45 PM [employer] Body Mass Index 20.03 11/15/2019 2:45 PM [employer] documented in this encounter Progress Notes Jack Dutton - 11/15/2019 2:00 PM CST29 year old female has been identified by and name. Verbal consent has been obtained by patientto have an injection of Depo Provera, as ordered by the provider. Date of last Depo Provera injection: 08/04/2019 Last Pap Smear: due for WWE 01/2020 Encounter Diagnosis: Z 30.42 The site was cleaned with an alcohol swab and given intramuscularly (IM) in the right gluteus. A band aid dressing was then applied to the injection site. The patient tolerated the procedure well , no rash, swelling or reaction noted. documented in this encounter Plan of Treatment Date Type Specialty Care Team Description 01/26/2020 Office Visit Obstetrics & Gynecology Arti Cabrales PA-C [address] [phone] Health Maintenance Due Date Last Done [...] 01/12/2018, 10/25/2006 documented as of this encounter Procedures Procedure Name Priority Date/Time Associated Diagnosis Comments POCT TEST Routine 11/15/2019 Surveillance for Results for this Depo-Provera procedure are in the contraception results section. documented in this encounter Results POCT TEST (11/15/2019) POCT PREG Negative On board controls acceptable Yes with C Line POCT PREG LOT # POCT PREG TEST DATE Specimen Urine - URINE, CLEAN CATCH documented in this encounter Visit Diagnoses Diagnosis Surveillance for Depo-Provera contraception - Primary Surveillance of other previously prescribed contraceptive method documented in this encounter Administered Medications Medication Order MAR Action Action Date Dose Rate Site medroxyPROGESTERone Given 11/15/2019 3:00 150 mg Right (DEPO-PROVERA) injection 150 PM [employer] Dorsogluteal-IM mg 150 mg, Intramuscular, ONCE, 1 dose, Wed11/15/19 at 1600, Routine documented in this encounter Insurance Payer Benefit Plan / Subscriber ID Effective Dates Phone Address Type Group [facility] xxxxxxxxx 2014-Present Medicaid COMM PLAN - PLUS MANAGED MEDICAID documented as of this encounter
--- OUTSIDE RECORDS SUMMARY | 2019-12-30 18:09 | XMS REPORT | Summary of Care ---
:1990 Author Organization [facility] - [facility] Address [address] [place] [address] Care Team Providers Name Role Phone Monique Dooley Primary Care Provider Encounter Details Date Type Department Care Team Description 11/14/2019 Patient Secure [facility] Family Monique Dooley PA [address] [id number] Allergies Active Allergy Reactions Severity Noted [...] as of this encounter (statuses as of 11/16/2019) Medications Medication Sig Dispensed Refills Start Date [...] 2,000 unit tablet fluticasone 50 Use 1 [place] in each 0 Active mcg/actuation nasal nostril. spray insulin lispro Inject 0 02/01/2015 Active (HUMALOG KWIKPEN) subcutaneously as 100 unit/mL pen directed. Inject 1 injector unit per every 20 carbohydrates subcutaneously with every meal. levalbuterol Inhale 2 Puffs. 0 Active (XOPENEX HFA) 45 mcg/actuation inhaler Rgtogz-Wuawdicx-Xqyx Take 5 Caps by 0 Active ase [...] (two) times Essential daily with meals. 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 Cystic fibrosis 07/18/2014 Need for HPV vaccine 07/18/2014 documented as of this encounter (statuses as of 11/16/2019) Resolved Problems Problem Noted Date Resolved Date Contraceptive patch status 11/28/2015 01/13/2017 documented as of this encounter (statuses as of 11/16/2019) Immunizations Name Administration Dates Next Due HPV9 [...] of this encounter Last Filed Vital Signs Not on filedocumented in this encounter Plan of Treatment Date Type Specialty Care Team Description 02/13/2020 Office Visit Obstetrics & Gynecology Arti Cabrales PA-C [address] [phone] Health Maintenance Due Date Last [...] Results Not on filedocumented in this encounter Insurance Payer Benefit Plan / Subscriber ID Effective Dates Phone Address Type Group [facility] xxxxxxxxx 2014-Present Medicaid COMM PLAN - PLUS MANAGED MEDICAID documented as of this encounter
--- OUTSIDE RECORDS SUMMARY | 2019-12-30 18:09 | XMS REPORT | Summary of Care ---
:1990 Author Organization [facility] Address [address] [place] [id number] Care Team Providers Name Role Phone Monique Dooley Primary Care Provider Reason for Visit Reason Comments Cough X week Sore Throat HOARSENESS Encounter Details Date Type Department Care Team Description 11/16/2019 Office Visit [facility] Family Monique Dooley, Acute URI ( Primary Dx); Medicine - Sam WILKES [facility] [address] [facility] [place] [phone] Allergies Active Allergy Reactions Severity Noted Date [...] 11/16/2019) Medications Medication Sig Dispensed Refills Start End Status Date Date sodium chloride Use 3 mL as 0 Active 0.9 % nebulizer directed as needed solution for Wheezing. esomeprazole Take 40 mg by 0 Active (NEXIUM) 40 mg mouth daily with capsule breakfast. cetirizine 0 Active (ZYRTEC) 10 mg 5 tablet minocycline 0 Active (MINOCIN) 100 mg 5 capsule BETHKIS 300 mg/4 0 Active mL Nebu 6 albuterol 1 Ampule. 0 Active (ACCUNEB) 0.63 mg/3 mL nebulizer solution Cholecalciferol, Take 2,000 Units 0 Active Vitamin D3, by mouth. (VITAMIN D3) 2,000 unit tablet fluticasone 50 Use 1 Mobile in 0 Active mcg/actuation each nostril. nasal spray insulin lispro Inject 0 Active (HUMALOG KWIKPEN) subcutaneously as 5 100 unit/mL pen directed. Inject 1 injector unit per every 20 carbohydrates subcutaneously with every meal. levalbuterol Inhale 2 Puffs. 0 Active (XOPENEX HFA) 45 mcg/actuation inhaler Fojtyw-Kljddwkc-U Take 5 Caps by 0 Active mylase (ZENPEP) mouth. 5,000-17,000 -27,000 unit capsule ergocalciferol, Take 50,000 Units 0 Active vitamin d2, by mouth. (CALCIFEROL) 50,000 unit capsule dornase brittani 2.5 mg. 0 Active (PULMOZYME) 1 5 mg/mL Soln nebulizer solution tobramycin (KEREN) 300 mg. 0 Active 300 mg/5 mL nebulizer solution zolpidem (AMBIEN) Take 10 mg by 0 Active 10 mg tablet mouth. lumacaftor-ivacaf Take by mouth. 0 Active tor (ORKAMBI) 200-125 mg Tab lidocaine 5 % Apply 1 Patch to 0 Active (700 mg/patch) skin. 7 patch multivit with min Take 1 capsule by 0 Active #[id number] mouth. 7 (DEKAS PLUS, FOLIC ACID,) 200 mcg-1,000 mcg-10 mg Cap dornase brittani Inhale 2.5 mg. 0 Active (PULMOZYME) 1 7 mg/mL Soln nebulizer solution Insulin Detemir inject 20 Units 0 Active (LEVEMIR under the skin. 7 FLEXTOUCH) 100 unit/mL (3 mL) injection chlorhexidine 3 Active 0.12 % mouthwash 7 ADVAIR DISKUS 5 Active 500-50 mcg/dose 7 inhalation disk CREON 5 Active 24,000-76,000 7 -120,000 unit capsule predniSONE 20 mg TK 3 TS PO D FOR 7 0 Active tablet DAYS 7 traMADOL 50 mg TAKE 2 TABLET PO Q 0 Active tablet 6 HOURS PRN 7 BANOPHEN 50 mg 0 Active capsule 8 nortriptyline 10 TK 1 C PO Q NIGHT 11 Active mg capsule 8 nystatin 100,000 SHAKE LQ AND TK 5 0 Active unit/mL ML PO QID 8 suspension SAIRA PEN NEEDLE USE DIRECTED TO Active 32 gauge x 5/32" INJECT 7 TIMES 8 Ndle DAILY voriconazole 200 TK 1 T PO BID Active mg tablet 8 mupirocin 2 % Apply to area(s) 22 g 0 Active ointmentIndicatio 3 (three) times 9 ns: Papule daily. diltiazem 120 mg Take 1 tablet by 60 tablet 2 Active 24 hr mouth 2 (two) 9 tabletIndications times daily. : Essential hypertension carvedilol 12.5 Take 1 tablet by 60 tablet 3 Active mg mouth 2 (two) 9 tabletIndications times daily with : Essential meals. hypertension azithromycin 250 Take 1 tablet by 1 Package 0 Active mg mouth daily. Take 0 tabletIndications 500 mg day 1, then : Acute URI 250 mg days 2 to 5. benzonatate Take 1 capsule by 30 capsule 0 Active (TESSALON PERLES) mouth 3 (three) 0 020 100 mg times daily for 10 capsuleIndication days. s: Acute URI azithromycin 250 Take 1 tablet by 1 Package 0 Discontinued mg mouth daily. Take 9 020 (Therapy tabletIndications 500 mg day 1, then completed) : Acute URI 250 mg days 2 to 5. documented as of this encounter (statuses as [...] Sign Reading Time Taken Comments Blood Pressure 125/82 11/16/2019 11:44 AM PAYMENT PROCESSOR Pulse 104 11/16/2019 12:14 PM PAYMENT PROCESSOR Temperature 36.9 C (98.4 F) 11/16/2019 11:44 AM PAYMENT PROCESSOR Respiratory Rate - - Oxygen Saturation 96% 11/16/2019 12:14 PM PAYMENT PROCESSOR Inhaled Oxygen Concentration - - Weight 48.5 kg (107 lb) 11/16/2019 11:44 AM PAYMENT PROCESSOR Height 154.9 cm (5' 1") 11/16/2019 11:44 AM PAYMENT PROCESSOR Body Mass Index 20.22 11/16/2019 11:44 AM PAYMENT PROCESSOR documented in this encounter Patient Instructions Patient InstructionsMonique Dooley PA - 11/16/2019 11:40 AM PAYMENT PROCESSOR Azithromycin tablets Brand Names: Zithromax, Zithromax Tri-Steven, Zithromax Z-Steven What is this medicine? AZITHROMYCIN (az ith val MYE sin) is a macrolide antibiotic. It is used to treat or prevent certain kinds of bacterial infections. It will not work for colds, flu, or other viral infections. How should I use this medicine? Take this medicine by mouth with a full glass of water. Follow the directions on the prescription label. The tablets can be taken with food or on an empty stomach. If the medicine upsets your stomach, take it with food. Take your medicine at regular intervals. Do not take your medicine more often thandirected. Take all of your medicine as directed even if you think your are better. Do not skip dosesor stop your medicine early. Talk to your finishing area operator regarding the use of this medicine in children. While this drug may be prescribed for children as young as 6 months for selected conditions, precautions do apply. What side effects may I notice from receiving this medicine? Side effects that you should report to your doctor or health home health caregiver as soon as possible: allergic reactions like skin rash, itching or hives, swelling of the face, lips, or tongue confusion, nightmares or hallucinations dark urine difficulty breathing hearing loss irregular heartbeat or chest pain pain or difficulty passing urine redness, blistering, peeling or loosening of the skin, including inside the mouth white patches or sores in the mouth yellowing of the eyes or skin Side effects that usually do not require medical attention (report to your doctor or health home health caregiver if they continue or are bothersome): diarrhea dizziness, drowsiness headache stomach upset or vomiting tooth discoloration vaginal irritation What may interact with this medicine? Do not take this medicine with any of the following medications: lincomycin This medicine may also interact with the following medications: amiodarone antacids control pills cyclosporine digoxin magnesium nelfinavir phenytoin warfarin What if I miss a dose? If you miss a dose, take it as soon as you can. If it is almost time for your next dose, take only that dose. Do not take double or extra doses. Where should I keep my medicine? Keep out of the reach of children. Store at room temperature between 15 and 30 degrees C (59 and 86 degrees F). Throw away any unused medicine after the expiration date. What should I tell my health care provider before I take this medicine? They need to know if you have any of these conditions: kidney disease liver disease irregular heartbeat or heart disease an unusual or allergic reaction to azithromycin, erythromycin, other macrolide antibiotics, foods, dyes, or preservatives or trying to get breast-feeding What should I watch for while using this medicine? Tell your doctor or healthcare professional if your symptoms do not start to get better or if they get worse. Do not treat diarrhea with over the counter products. Contact your doctor if you have diarrhea that lasts more than 2 days or if it is severe and watery. This medicine can make you more sensitive to the sun. Keep out of the sun. If you cannot avoid beingin the sun, wear protective clothing and use sunscreen. Do not use sun lamps or tanning beds/booths. NOTE:This sheet is a summary. It may not cover all possible information. If you have questions aboutthis medicine, talk to your doctor, pharmacist, or health care provider. Copyright 2018 [employer] ENT PROCESSOR documented in this encounter Progress Notes Monique Dooley PA - 11/16/2019 11:40 AM CST Cc: Chief Complaint Patient presents with Cough X week Sore Throat HOARSENESS Ester gAuilar is a 29 year old female. URI Presenting symptoms: congestion, cough and sore throat Presenting symptoms: no ear pain, no facial pain, no fatigue, no fever and no rhinorrhea Duration: 1 week Timing: Intermittent Progression: Unchanged Chronicity: New Worsened by: Nothing Ineffective treatments: zyrtec, tea with honey. Associated symptoms: no arthralgias, no headaches, no myalgias, no neck pain, no sinus pain, no sneezing, no swollen glands and no wheezing Risk factors: chronic respiratory disease, diabetes mellitus and immunosuppression (on chronic prednisone with pulm) Risk factors: no recent illness, no recent travel and no sick contacts Allergies Ester is allergic [...] fluticasone 50 mcg/actuation nasal spray Use 1 Mobile in each nostril. insulin lispro (HUMALOG KWIKPEN) 100 unit/mL pen injector Inject subcutaneously as directed. Inject 1 unit per every 20 carbohydrates subcutaneously with every meal. levalbuterol (XOPENEX HFA) 45 mcg/actuation inhaler Inhale 2 Puffs. Alxlvv-Ccmbqmuz-Sdpljac (ZENPEP) 5,000-17,000 -27,000 unit capsule Take 5 [...] file Gets together: Not on file Attends zoroastrian service: Not on file Active member of [...] History Narrative Denies domestic abuse at home Islam Preference: Methodist Family History Problem Relation Age of Onset [...] NoFHx Review of Systems Constitutional: Negative for activity change, appetite change, chills, diaphoresis, fatigue and fever. HENT: Positive for congestion, sore throat and voice change (hoarseness). Negative for ear pain, facial swelling, postnasal drip, rhinorrhea, sinus pressure, sinus pain, sneezing and trouble swallowing. Eyes: Negative for pain, discharge, redness and itching. Respiratory: Positive for cough. Negative for apnea, choking, chest tightness, shortness of breath, wheezing and stridor. Cardiovascular: Negative for chest pain, palpitations and leg swelling. Gastrointestinal: Negative for abdominal pain, constipation, diarrhea, nausea and vomiting. Musculoskeletal: Negative for arthralgias, myalgias and neck pain. Neurological: Negative for dizziness, syncope, light-headedness and headaches. Vital Signs BP 125/82 (BP Location: Right arm, Patient Position: Sitting, BP CUFF SIZE: Adult Medium) | Pulse 111 | Temp 36.9 C (98.4 F) (Oral) | Ht 5' 1" ( 1.549 m) | Wt 107 lb (48.5 kg) | LMP 11/13/2019| BMI 20.22 kg/m BP 125/82 (BP Location: Right arm, Patient Position: Sitting, BP CUFF SIZE: Adult Medium) | Pulse 104 | Temp 36.9 C (98.4 F) (Oral) | Ht 5' 1" ( 1.549 m) | Wt 107 lb (48.5 kg) | LMP 11/13/2019| SpO2 96% | BMI 20.22 kg/m Physical Exam Constitutional: She is oriented to person, place, and time. She appears well- developed and well-nourished. No distress. HENT: Head: Normocephalic and atraumatic. Right Ear: Tympanic membrane, external ear and ear canal normal. Left Ear: Tympanic membrane, external ear and ear canal normal. Nose: Mucosal edema present. No rhinorrhea. Right sinus exhibits no maxillary sinus tenderness and no frontal sinus tenderness. Left sinus exhibits no maxillary sinus tenderness and no frontal sinus tenderness. Mouth/Throat: Uvula is midline and mucous membranes are normal. No uvula swelling. No oropharyngeal exudate, posterior oropharyngeal edema, posterior oropharyngeal erythema or tonsillar abscesses. Tonsils are 0 on the right. Tonsils are 0 on the left. No tonsillar exudate. + post nasal drip Eyes: Conjunctivae are normal. Neck: Normal range of motion. Neck supple. Cardiovascular: Normal rate, regular rhythm and normal heart sounds. Pulmonary/Chest: Effort normal and breath sounds normal. Abdominal: Soft. Bowel sounds are normal. She exhibits no distension. There is no tenderness. There is no guarding. Musculoskeletal: Normal range of motion. Lymphadenopathy: She has cervical adenopathy (mild). Neurological: She is alert and oriented to person, place, and time. Skin: Skin is warm and dry. She is not diaphoretic. Psychiatric: She has a normal mood and affect. Her behavior is normal. Nursing note and vitals reviewed. Assessment/Plan Acute URI (primary encounter diagnosis) Plan: azithromycin 250 mg tablet, benzonatate (TESSALON PERLES) 100 mg capsule Afebrile, well appearing, NAD. Lungs CTAB. Given duration of symptoms w/o improvement with conservative therapy and comorbidities will start on abx. Start zpack, take full course as directed with food even if feeling better Start tessaon as needed for cough Take otc claritin w/o decongestant Start plain guaifenesin (mucinex) with full glass of water Recommend nasal saline spray OR netti pot with distilled water (neilmed sinus rinse) with distilled water, recommend using first, blow nose gently, then use nasal spray. Rest Wash hands frequently Increase water intake Cover mouth when coughing. Warm liquids Gargle with warm salt water/throat lozenges Er: worsening f/c, chest pain, coughing up blood, shortness of breath, dizziness , passing out Tachycardia Plan: Under the care of [facility] cardiology. Reports HR at baseline. No cp, palpitations, sob, dizziness, syncope. Encouraged to monitor and follow-up with managing payroll associate Avoid caffeine, decongestants Maintain water: min 64 oz daily ER--> worsening condition; cp, shortness of breath, dizziness, syncope, palpitations, n/v, diaphoresis. Pt ed/precautions given in detail regarding conditions/medicaitons. Er precautions given. Pt reportsunderstanding and agrees. rtc if s/s worsen or do not improve ; Plan of care, desired health behaviors, goals, Ddx, & any prescribed or OTC medications discussed with patient. Education resources & self management tools provided and reviewed with AVS. Patient/guardian/family verbalized understanding & agrees to plan of care. Barriers to care: NONE Ability to manage care: Good This visit did not involve counseling and coordination that comprised more than 50% of the visit time.Electronically signed by Monique Dooley PA at 2019 1:45 PM CSTdocumented in this encounter Plan of Treatment Date Type Specialty Care Team Description 02/13/2020 Office Visit Obstetrics & Gynecology Arti Cabrales PA-C [address] [place] [phone] Health Maintenance Due Date Last Done [...] in this encounter Visit Diagnoses Diagnosis Acute URI - Primary Acute upper respiratory infections of unspecified site Tachycardia Tachycardia, unspecified documented in this encounter Insurance Payer Benefit Plan / Subscriber ID Effective Dates Phone Address Type [facility] xxxxxxxxx 2014-Present Medicaid COMM PLAN - PLUS MANAGED MEDICAID documented as of this encounter
--- OUTSIDE RECORDS SUMMARY | 2019-12-30 18:09 | XMS REPORT | Summary of Care ---
:1990 Author Organization [facility] Address [address] [place] [id number] Care Team Providers Name Role Phone Monique Dooley Primary Care Provider Reason for Visit Reason Comments Cough X week Sore Throat HOARSENESS Encounter Details Date Type Department Care Team Description 11/16/2019 Office Visit [facility] Family Monique Dooley, Acute URI ( Primary Dx); Medicine - Sam WILKES [facility] [address] [facility] [phone] Allergies Active Allergy Reactions Severity Noted Date [...] 2,000 unit tablet fluticasone 50 Use 1 [place] in 0 Active mcg/actuation each nostril. nasal spray insulin lispro Inject 0 Active (HUMALOG KWIKPEN) subcutaneously as 5 100 unit/mL pen directed. Inject 1 injector unit per every 20 carbohydrates subcutaneously with every meal. levalbuterol Inhale 2 Puffs. 0 Active (XOPENEX HFA) 45 mcg/actuation inhaler Vwaxda-Eugxmaca-H Take 5 Caps by 0 Active mylase [...] Comments Blood Pressure 125/82 11/16/2019 11:44 AM FIRE PROTECTION EQUIPMENT TECHNICIAN Pulse 104 11/16/2019 12:14 PM FIRE PROTECTION EQUIPMENT TECHNICIAN Temperature 36.9 C (98.4 F) 11/16/2019 11:44 AM FIRE PROTECTION EQUIPMENT TECHNICIAN Respiratory Rate - - Oxygen Saturation 96% 11/16/2019 12:14 PM FIRE PROTECTION EQUIPMENT TECHNICIAN Inhaled Oxygen Concentration - - Weight 48.5 kg (107 lb) 11/16/2019 11:44 AM FIRE PROTECTION EQUIPMENT TECHNICIAN Height 154.9 cm (5' 1") 11/16/2019 11:44 AM FIRE PROTECTION EQUIPMENT TECHNICIAN Body Mass Index 20.22 11/16/2019 11:44 AM FIRE PROTECTION EQUIPMENT TECHNICIAN documented in this encounter Patient Instructions Patient InstructionsMonique Dooley PA - 11/16/2019 11:40 AM FIRE PROTECTION EQUIPMENT TECHNICIAN Azithromycin tablets Brand Names: Zithromax, Zithromax Tri-Steven, [...] stop your medicine early. Talk to your land leasing information clerk regarding the use of this medicine in children. While this drug may be prescribed for children as young as 6 months for selected conditions, precautions do apply. What side effects may I notice from receiving this medicine? Side effects that you should report to your doctor or health home health care provider as soon as possible: allergic reactions like [...] to your doctor or health home health care provider if they continue or are bothersome): diarrhea [...] pharmacist, or health care provider. Copyright 2018 [employer] PROTECTION EQUIPMENT TECHNICIAN documented in this encounter Progress Notes Monique Dooley PA - 11/16/2019 11:40 AM CST Cc: Chief Complaint Patient presents with Cough X week Sore Throat HOARSENESS Ester Aguilar is a 29 year old female. URI [...] fluticasone 50 mcg/actuation nasal spray Use 1 [place] in each nostril. insulin lispro (HUMALOG KWIKPEN) 100 unit/mL pen injector Inject subcutaneously as directed. Inject 1 unit per every 20 carbohydrates subcutaneously with every meal. levalbuterol (XOPENEX HFA) 45 mcg/actuation inhaler Inhale 2 Puffs. Lstzmq-Gdtvgfto-Cusnrpe (ZENPEP) 5,000-17,000 -27,000 unit capsule Take 5 [...] file Gets together: Not on file Attends protestant service: Not on file Active member of [...] History Narrative Denies domestic abuse at home Buddhism Preference: Yarsanism Family History Problem Relation Age of Onset [...] out Tachycardia Plan: Under the care of [facility] cardiology. Reports HR at baseline. No cp, palpitations, sob, dizziness, syncope. Encouraged to monitor and follow-up with managing accuracy expert Avoid caffeine, decongestants Maintain water: min 64 [...] Visit Obstetrics & Gynecology Arti Cabrales PA-C [address] [place] [phone] Health Maintenance Due Date Last Done [...] Subscriber ID Effective Dates Phone Address Type [facility] xxxxxxxxx 2014-Present Medicaid COMM PLAN - PLUS MANAGED MEDICAID documented as of this encounter
--- OUTSIDE RECORDS SUMMARY | 2019-12-30 18:09 | XMS REPORT | Summary of Care ---
:1990 Author Organization [facility] Address [address] [place] [id number] Care Team Providers Name Role Phone Monique Dooley Primary Care Provider Reason for Visit Reason Comments Refill Request Carvedilol 12.5 mg Encounter Details Date Type Department Care Team Description 12/08/2019 Telephone [facility] Paul Gonzalez MD Refill Request Cardiology- [address] (Carvedilol 12.5 mg) [id number] [facility] [address] [place] [phone] Allergies Active Allergy Reactions Severity Noted Date [...] as of this encounter (statuses as of 12/08/2019) Medications Medication Sig Dispensed Refills Start End Status Date Date sodium chloride 0.9 % Use 3 mL as 0 Active nebulizer solution directed as needed for Wheezing. esomeprazole (NEXIUM) Take 40 mg by 0 Active 40 mg capsule mouth daily with breakfast. cetirizine (ZYRTEC) 0 10/20/20 Active 10 mg tablet 15 minocycline (MINOCIN) 0 10/22/20 Active 100 mg capsule 15 BETHKIS 300 mg/4 mL 0 11/14/19 Active Nebu 16 albuterol (ACCUNEB) 1 Ampule. 0 Active 0.63 mg/3 mL nebulizer solution Cholecalciferol, Take 2,000 Units 0 Active Vitamin D3, (VITAMIN by mouth. D3) 2,000 unit tablet fluticasone 50 Use 1 [place] in 0 Active mcg/actuation nasal each nostril. spray insulin lispro Inject 0 02/02/20 Active (HUMALOG KWIKPEN) 100 subcutaneously as 15 unit/mL pen injector directed. Inject 1 unit per every 20 carbohydrates subcutaneously with every meal. levalbuterol (XOPENEX Inhale 2 Puffs. 0 Active HFA) 45 mcg/actuation inhaler Szbkwy-Bhwdgvwc-Ibmhr Take 5 Caps by 0 Active se (ZENPEP) mouth. 5,000-17,000 -27,000 unit capsule ergocalciferol, Take 50,000 Units 0 Active vitamin d2, by mouth. (CALCIFEROL) 50,000 unit capsule dornase brittani 2.5 mg. 0 08/08/20 Active (PULMOZYME) 1 mg/mL 15 Soln nebulizer solution tobramycin (KEREN) 300 300 mg. 0 Active mg/5 mL nebulizer solution zolpidem (AMBIEN) 10 Take 10 mg by 0 Active mg tablet mouth. lumacaftor-ivacaftor Take by mouth. 0 Active (ORKAMBI) 200-125 mg Tab lidocaine 5 % (700 Apply 1 Patch to 0 12/18/19 Active mg/patch) patch skin. 17 multivit with min Take 1 capsule by 0 12/21/19 Active #[id number] (DEKAS mouth. 17 PLUS, FOLIC ACID,) 200 mcg-1,000 mcg-10 mg Cap dornase brittani Inhale 2.5 mg. 0 12/18/19 Active (PULMOZYME) 1 mg/mL 17 Soln nebulizer solution Insulin Detemir inject 20 Units 0 01/06/20 Active (LEVEMIR FLEXTOUCH) under the skin. 17 100 unit/mL (3 mL) injection chlorhexidine 0.12 % 3 11/18/19 Active mouthwash 17 ADVAIR DISKUS 500-50 5 12/19/19 Active mcg/dose inhalation 17 disk CREON 24,000-76,000 5 12/21/19 Active -120,000 unit capsule 17 predniSONE 20 mg TK 3 TS PO D FOR 0 12/26/19 Active tablet 7 DAYS 17 traMADOL 50 mg tablet TAKE 2 TABLET PO 0 10/29/19 Active Q 6 HOURS PRN 17 BANOPHEN 50 mg 0 12/03/19 Active capsule 18 nortriptyline 10 mg TK 1 C PO Q NIGHT 11 12/28/19 Active capsule 18 nystatin 100,000 SHAKE LQ AND TK 5 0 12/20/19 Active unit/mL suspension ML PO QID 18 SAIRA PEN NEEDLE 32 USE DIRECTED 5 11/12/19 Active gauge x 532" Ndle TO INJECT 7 TIMES 18 DAILY voriconazole 200 mg TK 1 T PO BID 5 01/11/20 Active tablet 18 mupirocin 2 % Apply to area(s) 22 g 0 06/08/20 Active ointmentIndications: 3 (three) times 19 Papule daily. diltiazem 120 mg 24 Take 1 tablet by 60 tablet 2 07/05/20 Active hr tabletIndications: mouth 2 (two) 19 Essential times daily. hypertension azithromycin 250 mg Take 1 tablet by 1 Package 0 11/16/19 Active tabletIndications: mouth daily. Take 20 Acute URI 500 mg day 1, then 250 mg days 2 to 5. brompheniramine-pseud Take 5 mL by 175 mL 0 12/06/19 Active oephedrine-DM mouth 4 (four) 20 (BROMFED DM) 2-30-10 times daily as mg/5 mL needed for syrupIndications: Congestion/Allerg Acute upper ies or Cough. respiratory infection methylPREDNISolone 4 Take by mouth 21 Each 0 12/06/19 Active mg SEE-INSTRUCTIONS. 20 tabletsIndications: follow package Acute upper directions respiratory infection carvediloL 12.5 mg Take 1 tablet by 60 tablet 0 12/08/19 Active tabletIndications: mouth 2 (two) 20 Essential times daily with hypertension meals. carvedilol 12.5 mg Take 1 tablet by 60 tablet 3 08/15/20 Discontinued tabletIndications: mouth 2 (two) 19 020 (Reorder) Essential times daily with hypertension meals. 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 Cystic fibrosis 07/18/2014 Need for HPV vaccine 07/18/2014 documented as of this encounter (statuses as of 12/08/2019) Resolved Problems Problem Noted Date Resolved Date Contraceptive patch status 11/28/2015 01/13/2017 documented as of this encounter (statuses as of 12/08/2019) Immunizations Name Administration Dates Next Due HPV9 [...] Visit Obstetrics & Gynecology Arti Cabrales PA-C [address] [place] [phone] Health Maintenance Due Date Last Done [...] filedocumented in this encounter Visit Diagnoses Diagnosis Essential hypertension Unspecified essential hypertension documented in this encounter Insurance Payer Benefit Plan / Subscriber ID Effective Dates Phone Address Type [facility] xxxxxxxxx 2014-Present Medicaid COMM PLAN - PLUS MANAGED MEDICAID documented as of this encounter
--- OUTSIDE RECORDS SUMMARY | 2019-12-30 18:10 | XMS REPORT | Summary of Care ---
:1990 Author Organization [facility] [place] [address] Care Team Providers Name Role Phone [facility] Unavailable [place], [place] Home Patient - Unavailable [facility] Homepatient - Unavailable Faith Tracey MD Primary Care Provider Reason for Visit Reason Comments Follow Up Encounter Details Date Type Department Care Team Description 12/21/2019 Office Visit [facility] Tere Diaz NP Follow Up Medicine Cystic Fibrosis [address] 6[address] Floor, [address] [address] [place] [address] Allergies Active Allergy Reactions Severity Noted Date Comments Amikacin High 01/15/2014 Hearing lost Hearing lost Patient stated "Amikacin takes away my hearing." Povidone Iodine Rash 01/08/2012 I.V. Dye Vomiting Only 04/25/2015 Dexamethasone 01/08/2012 Turns red Dexamethasone Rash High 01/08/2012 Other reaction(s): Unknown - See comments Turns red Patient stated "Decadron makes me turn red." Turns red Patient stated "Decadron makes me turn red." Iodine Nausea And Vomiting 01/13/2017 Povidone-Iodine Rash High 06/13/2014 documented as of this encounter (statuses as of 12/21/2019) Medications Medication Sig Dispensed Refills Start End Status Date Date acetaminophen-codein Take 1 Tab by 30 Tab 0 Active e (TYLENOL/CODEINE mouth every 4 7 #3) 300-30 MG per hours as needed tablet for Pain. mirtazapine Take 7.5 mg by 0 Active (REMERON) 7.5 MG mouth nightly. tabletIndications: Cystic fibrosis [facility] ACCU-CHEK FASTCLIX 1 Each 6 times 204 Each 11 Active LANCETS daily. 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 ([facility]), Alternate 28 Pseudomonas days on and 28 aeruginosa infection days off. Brand name medically necessary. Multiple TAKE 1 CAPSULE 60 Cap 11 Active Vitamins-Minerals BY MOUTH 2 TIMES 9 (MVW COMPLETE DAILY WITH MEALS FORMULATION D3000) FOR 180 DAYS CAPS tramadol (ULTRAM) 50 Take 1 Tab by 120 Tab 1 Active MG mouth Every 6 9 tabletIndications: hours. Pain ondansetron (ZOFRAN) Take 1 Tab by 90 Tab 1 Active 4 MG mouth every 8 9 tabletIndications: hours as needed Cyclical vomiting for Nausea. with nausea, intractability of vomiting not specified diltiazem 120 MG Take 1 Tab by 0 Active TABS mouth two times daily. Pancrelipase, TAKE 5 CAPSULES 540 Cap 5 Active Gji-Grwt-Zzpt, BY MOUTH WITH 9 (CREON) 32741-75654 MEALS, AND TAKE units 2 CAPSULES BY CPEPIndications: MOUTH EVERY DAY Cystic fibrosis WITH SNACKS (HCCode), Pancreatic insufficiency Nutritional Take 1 Bottle by 60 Can 5 Active Supplements mouth two times 9 020 (GLUCERNA SHAKE) daily for 180 LIQDIndications: days. 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 9 HFA) 45 MCG/ACT AERO May take an inhalerIndications: additional 2 ABPA (allergic puffs throughout bronchopulmonary day if needed. aspergillosis) ([facility]), Cystic fibrosis (HCCode), Tachycardia Cholecalciferol 2000 Take 1 capsule 30 Tab 5 Active units by mouth daily. 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 sprayIndications: Subacute frontal sinusitis Glucagon, rDNA, Inject 1 2 Each 1 Active (GLUCAGON EMERGENCY) Applicator as 9 1 MG KITIndications: directed as Diabetes mellitus needed. related to cystic fibrosis ([facility] Continuous Blood 1 Each every 14 2 Each 6 Active Gluc Sensor days. 9 (FREESTYLE RENNY 14 DAY SENSOR) MISC insulin lispro USE 60 UNITS PER 20 mL 2 Active (HUMALOG) 100 DAY VIA INSULIN 9 UNIT/ML injection PUMP duloxetine Take 1 Cap by 30 Cap 5 Active (CYMBALTA) 30 MG mouth daily. 9 capsule Glucose Blood Strips Check glucose 5x 500 Each 10 Active (CONTOUR NEXT TEST) daily; Dx E84.9 9 dronabinol (MARINOL) Take 1 Cap by 60 Cap 0 Active 2.5 MG mouth two times 9 capsuleIndications: daily. Anorexia, Decreased appetite omeprazole TAKE 1 CAPSULE 60 Cap 5 Active (PRILOSEC) 20 MG BY MOUTH TWICE 9 capsuleIndications: DAILY Pancreatic insufficiency predniSONE Take 0.5 Tabs by 30 Tab 5 Active (DELTASONE) 10 MG mouth daily. 0 tabletIndications: Cystic fibrosis (HCCode), ABPA (allergic bronchopulmonary aspergillosis) (HCCode) zolpidem (AMBIEN) 10 Take 1 Tab by 30 Tab 3 Active MG mouth nightly as 0 tabletIndications: needed for Other insomnia Sleep. cetirizine,ZYRTEC, Take 1 Tab by 90 Tab 1 Active (ZYRTEC ALLERGY) 10 mouth daily. 0 MG tabletIndications: Subacute frontal sinusitis azithromycin Take 1 Tab by 36 Tab 1 Active (ZITHROMAX) 500 MG mouth every 0 tabletIndications: Wednesday, Cystic fibrosis with Wednesday, pulmonary Wednesday. manifestations (HCCode) Grppzcei-Jiurtfv-Ikp Take 2 tablets 84 Each 0 Active caf&Ivacaf by mouth every 0 (TRIKAFTA) 100-50-75 morning AND 1 & 150 MG tablet at TBPKIndications: bedtime. Take 12 Cystic fibrosis with hours apart with pulmonary fat containing manifestations food (HCCode) ciprofloxacin Take 1 Tab by 28 Tab 0 Active (CIPRO) 750 MG mouth two times 0 020 tabletIndications: daily for 14 Cystic fibrosis with days. pulmonary exacerbation (HCCode) albuterol USE 1 VIAL VIA 810 mL 1 Active (PROVENTIL) (2.5 NEBULIZER THREE 0 mg/3 mL) 0.083% TIMES DAILY nebulizer solution NEEDED FOR SHORTNESS OF BREATH dornase alpha Take 1 Ampule by 60 Ampule 5 Active (PULMOZYME) 1 MG/ML nebulization two 0 nebulizer times daily. solutionIndications: Cystic fibrosis (HCCode), Pancreatic insufficiency sodium chloride, Take 1 Ampule by 240 mL 5 Active Inhalant, nebulization two 0 (HYPER-ELISSA) 7 % times daily. nebulizer solutionIndications: Cystic fibrosis (HCCode) Vitamin D, TAKE 1 CAPSULE 4 Cap 3 Active Ergocalciferol, 1.25 BY MOUTH EVERY 7 0 MG (33155 UT) DAYS CAPSIndications: Vitamin D insufficiency Vitamin D, TAKE 1 CAPSULE 4 Cap 0 Discontinued Ergocalciferol, BY MOUTH EVERY 7 9 020 (Reorder) 60292 units DAYS CAPSIndications: Vitamin D insufficiency documented as of this encounter (statuses as of 12/21/2019) Active Problems Problem Noted Date Tachycardia 07/24/2019 Sleep-related hypoventilation due to pulmonary parenchymal pathology 2018 Last Assessment & Plan: No download Patient reports excellent use Patient appreciates and acknowledges the benefit form PAP on sleep quality and daytime function Pt commended on use and encouraged to continue Setting change; none Hypoxemia 05/28/2019 Last Assessment & Plan: Sec to lung disease, will need NPO Dysfunctions associated with sleep stages or arousal from sleep 05/28/2019 Last Assessment & Plan: Difficulty maintaining sleep with poor sleep hygiene practices, also related to chronic illness Will refer to Dr Hart for evaluation and counseling Poor sleep hygiene 05/28/2019 Last Assessment & Plan: Counseled on sleep hygiene practice Chronic sinusitis 11/22/2018 High risk medication use 11/10/2018 Overview: [facility] 11/08 - : Merrem 2G q 8H & Colistin 70 mg q 8H x 11 days. (23/0.80) [facility] 04/12- 04/25/19: Colistin 50mg Q12 and Merrem 2G Q8 [facility] 08/29 - 09/12/2019: Colistin 50 mg q 12H and Merrem 2G q 8H. Generalized headaches 03/17/2017 Last Assessment & Plan: Better on nortryptyline Low back pain 08/19/2016 Last Assessment & Plan: Persistent, due to coughing. Currently using tramadol. Previous success with lidoderm patch in the hospital. Will order through insurance. Non-compliance with treatment 12/13/2014 Encounter for long-term (current) use of insulin (HCCode) 06/14/2014 Encounter for long-term (current) use of steroids 06/14/2014 Vitamin D insufficiency 06/13/2014 Overview: 03/2014 Vitamin D: 18.4 10/2013 DEXA scan: Left femoral neck bone mineral density: 0.751 G/cm2, Z-score is -0.9. Left hip total bone mineral density: 0.923 G/cm2, Z-score is -0.2. Lumbar spine total bone mineral density: 0.934 Gm/cm2, Z-score is -0.8. Last Assessment & Plan: Repeat Vitamin D level ABPA (allergic bronchopulmonary aspergillosis) ([facility] 04/07/2014 Last Assessment & Plan: Will DC vfend and increase orkambi to full dose Continue prednisone 10mg vascular port 04/05/2014 Insomnia 11/30/2013 Last Assessment & Plan: Improved Cont same Malnutrition [facility]) 10/26/2013 Last Assessment & Plan: Recommended trying ERPLY Peptide Asthma 11/09/2012 Last Assessment & Plan: Wheezing and coughing attacks more frequent. Pancreatic insufficiency 01/08/2012 Last Assessment & Plan: Vitals 09/25/2019 09/27/2019 10/17/2019 10/26/2019 12/21/2019 WEIGHT 106.4 108 107.2 107.8 109.2 HEIGHT 5' 1" 5' 1" 5' 1" 5' 1" 5' 1" BODY MASS INDEX 20.1 20.41 20.26 20.37 20.63 Patient states 4 x formed sinking stools daily. No GI issues. Malabsorption 01/08/2012 Hx ABPA (allergic bronchopulmonary aspergillosis) 01/08/2012 Overview: Treated several times at [facility] with "pulse steroid doses". Voriconazole started 08/[address] scan findings Last Assessment & Plan: On voriconazole. Sensorineural hearing loss, unspecified, 2004 01/08/2012 Overview: Has hearing aids. Pseudomonas aeruginosa infection 01/08/2012 Last Assessment & Plan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 Patient states that since her last visit 2 months ago she has yecenia nued to feel improvement on Trikafta with increased energy and endurance while exercising. Treated 2 weeks ago with PO Cipro for a mild pulmonary exacerbation , symptoms have since resolved. PFT's continue to improve, continue current regimen. Follow up in 3 months or PRN. Patient due to graduate in February. 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 Will check A1C today. Due to follow up with Dr. Morgan in January HX Atypical mycobacterial disease, abscessus, treated 200204/10/2011 Last Assessment & Plan: Recurrent. Consult ID - specific question, treating M Abscessus Previously tried to treat with Tygacil -- patient unable to tolerate due to nausea (weight loss down to 80s lbs). Previous treatment with amikacin resulted in hearing loss. Concern with progressively decreasing lung function - patient will not be candidate for transplant if can't clear burden of M Abscessus. ? If clofazimine is an option. documented as of this encounter (statuses as of 12/21/2019) Resolved Problems Problem Noted Date Resolved Date Cystic fibrosis with pulmonary exacerbation (HCCode) 12/11/2015 04/09/2016 Last Assessment & Plan: PFT Results 08/19/2015 09/18/2015 12/11/2015 01/27/2016 FEV1 0.94 1.34 1.26 0.76 FEV1 % Exp 30 43 41 25 FVC 1.84 2.28 2.27 1.44 FVC % Expected 52 64 64 41 FEV1 / FVC 0.57 59 0.56 0.53 FEV1 / FVC % Exp 67 66 65 61 FEF 25-75% 0.4 0.6 0.53 0.31 FEF % Expec 11 17 15 9 Severe obstructive lung disease - well below patients baseline. Admit to hospital for severe pulmonary exacerbation 1. Colistin 40mg IV Q8 2. Ceftazidime 2gm Q8 3. 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 06/14/2014 [place]20/[place] Last Assessment & Plan: Struggles glucose control Following with Mr Melgar Cystic fibrosis with pulmonary exacerbation [facility] 08/19/2012 04/17/2013 Last Assessment & Plan: Doing great, doesn't want to do [place], wants to stick with KEREN only as she feels she can be more complaint this way Hx Phlebitis of arm, left, post PICC 02/24/2010 08/20/2015 documented as of this encounter (statuses as of 12/21/2019) Immunizations Name Administration Dates Next Due Influenza (whole) 08/30/2012 Influenza Quad-PF 07/18/2019, 10/08/2017 documented as of this encounter Social History Tobacco Use Types Packs/Day Years Used Date Never Smoker Smokeless Tobacco: Never Used Alcohol Use Drinks/Week oz/Week Comments Yes 1 Standard drinks or equivalent 1.0 Sex Assigned at Date Recorded Female 09/21/2018 10:51 PM [employer] Job Start Date Occupation Industry Not on file Not on file Not on file Travel History Travel Start Travel End No recent travel history available. documented as of this encounter Last Filed Vital Signs Vital Sign Reading Time Taken Comments Blood Pressure 95/67 12/21/2019 9:41 AM [employer]CHNICIAN Pulse 110 12/21/2019 9:41 AM [employer] TECHNICIAN Temperature 36.8 C (98.2 F) 12/21/2019 9:41 AM [employer] TECHNICIAN Respiratory Rate 18 12/21/2019 9:41 AM [employer] TECHNICIAN Oxygen Saturation - - Inhaled Oxygen Concentration - - Weight 49.5 kg (109 lb 3.2 oz) 12/21/2019 9:41 AM [employer] TECHNICIAN Height 154.9 cm (5' 1") 12/21/2019 9:41 AM [employer] TECHNICIAN Body Mass Index 20.63 12/21/2019 9:41 AM [employer] TECHNICIAN documented in this encounter Patient Instructions Patient InstructionsEstelle Edouard LVN - 12/21/2019 9:56 AM CSTADULT CYSTIC FIBROSIS CLINIC AFTER VISIT SUMMARY TODAY'S INSTRUCTIONS 1. Please make a follow up appointment in 3 months (February) where we will get your labs checked again. BREATHING REGIMEN 1.) Bronchodilator: Xopenex 2-3 times a day before treatments. 2.) Hypersal: 7% Twice a day. 3.) Pulmozyme: Twice a day in a separate neb cup 4.) Airway Clearance: Twice a day. ( You may use the vest with the Aerobika or flutter. Try to Use the vest while on the Hypersaline and Pulmozyme.) 5. Inhale Advair 1 puff, then rinse and spit Contact Verena Maravilla RCP at [phone] or via My Chart for help with respiratory regime or equipment questions. You will receive a survey via e-mail or in the mail from [employer] regarding your visit today. Weencourage you to fill this out so that we can provide you with the best care possible and improve your clinic experience. Phone calls and [employer] messages are monitored business days from 8 to 5 pm. Turnaround time is 24-48 hours during business days. Call [phone] for urgent concerns, and inform the call center that it is an urgent matter. Your call should be returned in one day. If you are calling after hours, you can request to speak with the [facility] Teacher Resource supervisor electronic coils. All emergencies & hospital admissions go through [facility] on [facility].Electronically signed by Estelle Edouard LVN at 10:46 AM [employer] TECHNICIAN documented in this encounter Progress Notes Mckenna Marin RD, LD - 12/21/2019 10:03 AM CSTCF NUTRITION SCREEN Ester Aguilar is a 29 y.o. year old female with cystic fibrosis. Weight - Scale: 109 lb 3.2 oz (49.5 kg) Height: 5' 1" (1.549 m) % Predicted FEV1: FEV1 % EXP: 47 % PERT: Creon 24: 3-5; Went down to 3/meal and back up to 5/meal Supplements: Glucerna, increase to TID with meals, 5 enzyme capsules (with meals ) CF Vitamin: MVW D3000 1/day Send script for 50,000 units weekly of Vitamin D. Glucerna BID, request increase to TID 200s typically; occasionally up to 400s - using more insulin and diet changing, f/u with Dr. Morgan 02/06. Starting to eat higher fat meals, good appetite. 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 Patient reports to clinic for a routine clinic visit, Feeling well and at improved new baseline since starting Trikafta 3 months ago. Patient states that since her last visit 2 months ago she has continued to feel improvement on Trikafta with increased energy and endurance while exercising. Treated 2weeks ago with PO Cipro for a mild pulmonary exacerbation, symptoms have since resolved. Outpatient Medications Prior to Visit Medication Sig Dispense Refill ACCU-CHEK FASTCLIX LANCETS MISC 1 Each 6 times daily. Check 6 times per day 204 Each 11 acetaminophen-codeine (TYLENOL/CODEINE #3) 300-30 MG per tablet Take 1 Tab by mouth every 4 hours as needed for Pain. 30 Tab 0 albuterol (PROVENTIL) (2.5 mg/3 mL) 0.083% nebulizer solution USE 1 VIAL VIA NEBULIZER THREE TIMES DAILY NEEDED FOR SHORTNESS OF BREATH 810 mL 1 azithromycin (ZITHROMAX) 500 MG tablet Take 1 Tab by mouth every Wednesday, Wednesday, Wednesday. 36 Tab 1 BETHKIS 300 MG/4ML NEBU 1 Ampule by Inhalation route two times daily. Alternate 28 days on and 28 days off. Brand name medically necessary. 224 mL 5 Blood Glucose Monitoring Suppl (ONE TOUCH ULTRA MINI) w/Device KIT Check glucose 5x daily; Dx E84.9 500 Each 10 cetirizine,ZYRTEC, (ZYRTEC ALLERGY) 10 MG tablet Take 1 Tab by mouth daily. 90 Tab 1 Cholecalciferol 2000 units TABS Take 1 capsule by mouth daily. 30 Tab 5 ciprofloxacin (CIPRO) 750 MG tablet Take 1 Tab by mouth two times daily for 14 days. 28 Tab 0 Continuous Blood Gluc Sensor (FREESTYLE RENNY 14 DAY SENSOR) MISC 1 Each every 14 days. 2 Each 6 diltiazem 120 MG TABS Take 1 Tab by mouth two times daily. dornase alpha (PULMOZYME) 1 MG/ML nebulizer solution Take 1 Ampule by nebulization two times daily. 60 Ampule 5 dronabinol (MARINOL) 2.5 MG capsule Take 1 Cap by mouth two times daily. 60 Cap 0 duloxetine (CYMBALTA) 30 MG capsule Take 1 Cap by mouth daily. 30 Cap 5 Fklnozzj-Jassnrw-Agiysf&Ivacaf (TRIKAFTA) 100-50-75 & 150 MG TBPK Take 2 tablets by mouth every morning AND 1 tablet at bedtime. Take 12 hours apart with fat containing food 84 Each 0 fluticasone (FLONASE) 50 MCG/ACT nasal spray 2 Sprays by Each Nostril route daily. 16 g 5 Glucagon, rDNA, (GLUCAGON EMERGENCY) 1 MG KIT Inject 1 Applicator as directed as needed. 2 Each 1 Glucose Blood Strips (CONTOUR NEXT TEST) Check glucose 5x daily; Dx E84.9 500 Each 10 insulin lispro (HUMALOG) 100 UNIT/ML injection USE 60 UNITS PER DAY VIA INSULIN PUMP 20 mL 2 Insulin Pen Needle (BD PEN NEEDLE SAIRA U/F) 32G X 4 MM MISC Use as directed to inject 7 times daily 200 Each 5 levalbuterol tartrate (XOPENEX HFA) 45 MCG/ACT AERO inhaler Inhale 2 puffs in am and pm. May take an additional 2 puffs throughout day if needed. 2 Inhaler 11 mirtazapine (REMERON) 7.5 MG tablet Take 7.5 mg by mouth nightly. Multiple Vitamins-Minerals (MVW COMPLETE FORMULATION D3000) CAPS TAKE 1 CAPSULE BY MOUTH 2 TIMESDAILY WITH MEALS FOR 180 DAYS 60 Cap 11 Nutritional Supplements (GLUCERNA SHAKE) LIQD Take 1 Bottle by mouth two times daily for 180 days. 60 Can 5 omeprazole (PRILOSEC) 20 MG capsule TAKE 1 CAPSULE BY MOUTH TWICE DAILY 60 Cap 5 ondansetron (ZOFRAN) 4 MG tablet Take 1 Tab by mouth every 8 hours as needed for Nausea. 90 Tab 1 Pancrelipase, Dgc-Kvin-Wyyl, (CREON) 76645-95630 units CPEP TAKE 5 CAPSULES BY MOUTH WITH MEALS,AND TAKE 2 CAPSULES BY MOUTH EVERY DAY WITH SNACKS 540 Cap 5 predniSONE (DELTASONE) 10 MG tablet Take 0.5 Tabs by mouth daily. 30 Tab 5 sodium chloride, Inhalant, (HYPER-ELISSA) 7 % nebulizer solution Take 1 Ampule by nebulization two times daily. 240 mL 5 tramadol (ULTRAM) 50 MG tablet Take 1 Tab by mouth Every 6 hours. 120 Tab 1 Vitamin D, Ergocalciferol, 85127 units CAPS TAKE 1 CAPSULE BY MOUTH EVERY 7 DAYS 4 Cap 0 zolpidem (AMBIEN) 10 MG tablet Take 1 Tab by mouth nightly as needed for Sleep. 30 Tab 3 No facility-administered medications prior to visit. Allergies Allergen Reactions Amikacin Hearing lost Hearing lost Patient stated "Amikacin takes away my hearing." Dexamethasone Rash Other reaction(s): Unknown - See comments Turns red Patient stated "Decadron makes me turn red." Turns red Patient stated "Decadron makes me turn red." Povidone-Iodine Rash Betadine [Povidone Iodine] Rash Contrast Medium (Iv Dye) [I.V. Dye] Vomiting Only Decadron [Dexamethasone] Turns red Iodine Nausea And Vomiting Past Medical History: Diagnosis Date ABPA (allergic bronchopulmonary aspergillosis) (HCCode) HX Atypical mycobacterial disease Abscessus, treated. Bronchiectasis (HCCode) Cystic fibrosis Diabetes Diabetes mellitus (HCCode) Diabetes mellitus related to CF (cystic fibrosis) (HCCode) Hearing loss due to antibiotic Hypertension Past Surgical History: Procedure Laterality Date HX PORTACATH right upper chest pentecostalism, 2013. 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, interested in Music Comment: active and sings in [employer]-2014 Comment: 2018-auditioned for [employer] Social Needs Financial resource strain: Not on file Food insecurity: Worry: Not on file Inability: Not on file Transportation needs: Medical: Not on file Non-medical: Not on file Tobacco Use Smoking status: Never Smoker Smokeless tobacco: Never Used Substance and Sexual Activity Alcohol use: Yes Alcohol/week: 1.0 standard drinks Types: 1 Standard drinks or equivalent per week Drug use: No Sexual activity: Yes control/protection: Condom Lifestyle Physical activity: Days per week: Not on file Minutes per session: Not on file Stress: Not on file Relationships Social connections: Talks on phone: Not on file Gets together: Not on file Attends scientology service: Not on file Active member of club or organization: Not on file Attends meetings of clubs or organizations: Not on file Relationship status: Not on file Intimate partner violence: Fear of current or ex partner: Not on file Emotionally abused: Not on file Physically abused: Not on file Forced sexual activity: Not on file Other Topics Concerns: Glucose Monitored: Not Asked Dietary Changes:Low Fat: Not Asked Dietary Changes: Low Salt: Not Asked Dietary Changes: Counting Carbs: Not Asked Dietary Changes: Weight Reduction Diet: Not Asked Dietary Changes: Other: Not Asked Caffeine Concern: Not Asked Social History Narrative Diagnosed with CF as in [place] due to recurrent pneumonia. Graduated high school, 02/2011. 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 IVAB's 08/30/2012: Colistin 75mg Q 8hr & Cefepime 2 gm Q 8hr (2wks) 11/03/2012: Colistin 65mg & Cefepime 2 g IV Q 8hr thru 11/08 [facility]: 10/23/16 - 10/29/16: IV colistin 70 mg every 8 hrs & IV ceftaz every 8 hours x 9 days [facility]: 12/04-12/11/16: Ceftaz 2 gm every 8 hours and Colistin 40 mg every 8 hours. Oral Minocycline BID. ([facility]) (14/0.98) [facility]: 12/31 - 01/05/2017: Ceftaz 2 gm every 8 hours & Colistin 50 mg every 8 hours x 9 days. ([facility])( 7/0.57) [facility]: 03/23 - 03/31/17: Colistin 40 mg IV every 8 hours & Ceftazidine 2 grams IV every 8 hours x 6 days ([facility])(17/0.60) [facility]: 06/17 - 06/24/17: Colistin 40 mg IV & Ceftazidine 2 grams every 8 hours x 7 days. ([facility])(20/0.64) [facility]: 09/22 - 09/28/17: Colistin 80 mg & Ceftaz 2G every 8H x 8 days. ([facility])(18/0.69) [facility]: 11/29/17 - 12/13/17: Colistin 80 mg Q8H and Ceftaz 2G Q8H. ([facility]) (14/0.71) [facility]: 08/15 - 08/29/2018: IV Colistin 70 mg q 8H & Merrem 2G q 8H. ( [facility])(13/0.62) Lives with parents. Getting AA at [facility]. 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 Review of Systems: Review of Systems Constitutional: Negative. Negative for activity change, appetite change, chills , fatigue and fever. HENT: Negative for congestion, postnasal drip, rhinorrhea, sinus pressure and sinus pain. Respiratory: Negative. Negative for cough, chest tightness, shortness of breath and wheezing. Gastrointestinal: Negative. Negative for abdominal distention, abdominal pain, constipation, diarrhea, nausea and vomiting. Musculoskeletal: Negative. Skin: Negative. Neurological: Negative. Psychiatric/Behavioral: Negative. All other systems reviewed and are negative. Physical Exam: Height: 5' 1" (154.9 cm) Weight - Scale: 109 lb 3.2 oz (49.5 kg) Temp: 98.2 F (36.8 C) Temp Source: Oral Pulse: 110 Respirations: 18 BP: 95/67 Patient Position: Sitting Cuff Size: regular BP Location: left arm O2 Sat: 97 % O2 Flow Rate: Room Air BSA (Calculated - sq m): 1.46 sq meters BMI (Calculated): 20.7 Predicted Body Weight: 105.38 (12/21/19 0941) Physical Exam Vitals signs and nursing note reviewed. Constitutional: Appearance: She is well-developed. HENT: Head: Normocephalic. Mouth/Throat: Pharynx: No oropharyngeal exudate. Eyes: Pupils: Pupils are equal, round, and reactive to light. Neck: Musculoskeletal: Normal range of motion. Cardiovascular: Rate and Rhythm: Normal rate and regular rhythm. Heart sounds: Normal heart sounds. Pulmonary: Effort: Pulmonary effort is normal. No respiratory distress. Breath sounds: Normal breath sounds. No wheezing or rales. Abdominal: General: There is no distension. Palpations: Abdomen is soft. Musculoskeletal: Normal range of motion. Skin: General: Skin is warm and dry. Neurological: Mental Status: She is alert and oriented to person, place, and time. Psychiatric: Behavior: Behavior normal. Thought Content: Thought content normal. Judgment: Judgment normal. Assessment and Plan: Cystic fibrosis with pulmonary manifestations (HCCode) PFT Results 07/18/2019 08/29/2019 09/12/2019 10/26/2019 12/21/2019 FEV1 0.7 0.75 0.8 1.13 1.19 FEV1 % Exp 27 30 31 44 47 FVC 1.32 1.33 1.62 1.88 2.01 FVC % Expected 45 46 55 65 69 FEV1 / FVC 0.56 0.6 0.53 0.6 0.6 FEV1 / FVC % Exp 65 70 61 69 70 FEF 25-75% 0.31 0.34 0.3 0.5 0.55 FEF % Expec 10 11 10 16 18 Patient reports to clinic for a routine clinic visit, Feeling well and at improved new baseline since starting Trikafta 3 months ago. Patient states that since her last visit 2 months ago she has continued to feel improvement on Trikafta with increased energy and endurance while exercising. Treated 2weeks ago with PO Cipro for a mild pulmonary exacerbation, symptoms have since resolved. PFT's continue to improve, continue current regimen. Follow up in 3 months or PRN. Patient due to graduate in February. Pancreatic insufficiency Vitals 09/25/2019 09/27/2019 10/17/2019 10/26/2019 12/21/2019 WEIGHT 106.4 108 107.2 107.8 109.2 HEIGHT 5' 1" 5' 1" 5' 1" 5' 1" 5' 1" BODY MASS INDEX 20.1 20.41 20.26 20.37 20.63 Patient states 4 x formed sinking stools daily. No GI issues. 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 Will check A1C today. Due to follow up with Dr. Morgan in January Outpatient Encounter Medications as of 12/21/2019 Medication Sig Dispense Refill ACCU-CHEK FASTCLIX LANCETS MISC 1 Each 6 times daily. Check 6 times per day 204 Each 11 acetaminophen-codeine (TYLENOL/CODEINE #3) 300-30 MG per tablet Take 1 Tab by mouth every 4 hours as needed for Pain. 30 Tab 0 albuterol (PROVENTIL) (2.5 mg/3 mL) 0.083% nebulizer solution USE 1 VIAL VIA NEBULIZER THREE TIMES DAILY NEEDED FOR SHORTNESS OF BREATH 810 mL 1 azithromycin (ZITHROMAX) 500 MG tablet Take 1 Tab by mouth every Wednesday, Wednesday, Wednesday. 36 Tab 1 BETHKIS 300 MG/4ML NEBU 1 Ampule by Inhalation route two times daily. Alternate 28 days on and 28 days off. Brand name medically necessary. 224 mL 5 Blood Glucose Monitoring Suppl (ONE TOUCH ULTRA MINI) w/Device KIT Check glucose 5x daily; Dx E84.9 500 Each 10 cetirizine,ZYRTEC, (ZYRTEC ALLERGY) 10 MG tablet Take 1 Tab by mouth daily. 90 Tab 1 Cholecalciferol 2000 units TABS Take 1 capsule by mouth daily. 30 Tab 5 ciprofloxacin (CIPRO) 750 MG tablet Take 1 Tab by mouth two times daily for 14 days. 28 Tab 0 Continuous Blood Gluc Sensor (FREESTYLE RENNY 14 DAY SENSOR) MISC 1 Each every 14 days. 2 Each 6 diltiazem 120 MG TABS Take 1 Tab by mouth two times daily. dornase alpha (PULMOZYME) 1 MG/ML nebulizer solution Take 1 Ampule by nebulization two times daily. 60 Ampule 5 dronabinol (MARINOL) 2.5 MG capsule Take 1 Cap by mouth two times daily. 60 Cap 0 duloxetine (CYMBALTA) 30 MG capsule Take 1 Cap by mouth daily. 30 Cap 5 Eljpwljn-Nltehik-Uthwks&Ivacaf (TRIKAFTA) 100-50-75 & 150 MG TBPK Take 2 tablets by mouth every morning AND 1 tablet at bedtime. Take 12 hours apart with fat containing food 84 Each 0 fluticasone (FLONASE) 50 MCG/ACT nasal spray 2 Sprays by Each Nostril route daily. 16 g 5 Glucagon, rDNA, (GLUCAGON EMERGENCY) 1 MG KIT Inject 1 Applicator as directed as needed. 2 Each 1 Glucose Blood Strips (CONTOUR NEXT TEST) Check glucose 5x daily; Dx E84.9 500 Each 10 insulin lispro (HUMALOG) 100 UNIT/ML injection USE 60 UNITS PER DAY VIA INSULIN PUMP 20 mL 2 Insulin Pen Needle (BD PEN NEEDLE SAIRA U/F) 32G X 4 MM MISC Use as directed to inject 7 times daily 200 Each 5 levalbuterol tartrate (XOPENEX HFA) 45 MCG/ACT AERO inhaler Inhale 2 puffs in am and pm. May take an additional 2 puffs throughout day if needed. 2 Inhaler 11 mirtazapine (REMERON) 7.5 MG tablet Take 7.5 mg by mouth nightly. Multiple Vitamins-Minerals (MVW COMPLETE FORMULATION D3000) CAPS TAKE 1 CAPSULE BY MOUTH 2 TIMESDAILY WITH MEALS FOR 180 DAYS 60 Cap 11 Nutritional Supplements (GLUCERNA SHAKE) LIQD Take 1 Bottle by mouth two times daily for 180 days. 60 Can 5 omeprazole (PRILOSEC) 20 MG capsule TAKE 1 CAPSULE BY MOUTH TWICE DAILY 60 Cap 5 ondansetron (ZOFRAN) 4 MG tablet Take 1 Tab by mouth every 8 hours as needed for Nausea. 90 Tab 1 Pancrelipase, Ups-Robd-Zooj, (CREON) 86025-45081 units CPEP TAKE 5 CAPSULES BY MOUTH WITH MEALS,AND TAKE 2 CAPSULES BY MOUTH EVERY DAY WITH SNACKS 540 Cap 5 predniSONE (DELTASONE) 10 MG tablet Take 0.5 Tabs by mouth daily. 30 Tab 5 sodium chloride, Inhalant, (HYPER-ELISSA) 7 % nebulizer solution Take 1 Ampule by nebulization two times daily. 240 mL 5 tramadol (ULTRAM) 50 MG tablet Take 1 Tab by mouth Every 6 hours. 120 Tab 1 Vitamin D, Ergocalciferol, 1.25 MG (83002 UT) CAPS TAKE 1 CAPSULE BY MOUTH EVERY 7 DAYS 4 Cap 3 [DISCONTINUED] Vitamin D, Ergocalciferol, 35610 units CAPS TAKE 1 CAPSULE BY MOUTH EVERY 7 DAYS 4 Cap 0 zolpidem (AMBIEN) 10 MG tablet Take 1 Tab by mouth nightly as needed for Sleep. 30 Tab 3 No facility-administered encounter medications on file as of 12/21/2019. Orders Placed This Encounter Procedures LFT Hemoglobin A1c Spirometry (In Clinic) documented in this encounter Plan of Treatment Date Type Specialty Care Team Description 01/15/2020 Office Visit Neurology Shandra Yip, [address] [facility] [facility], [place] [id number] 02/07/2020 Office Visit Endocrinology Jenny Morgan MD [address] [facility] 8th [address], [address] [address] 06/04/2020 Office Visit Sleep Center Lizbeth Stovall MD [address] [address] [phone] Name Type Priority Associated Diagnoses Order Schedule HEPATIC FUNCTION PANEL Lab Routine High risk medication use Ordered: 2019 HEMOGLOBIN A1C Lab Routine Diabetes mellitus related to Ordered: 12/21/2019 cystic fibrosis (HCCode) Health Maintenance Due Date Last Done Comments TETANUS SHOT (ADULT) 2007 CERVICAL CANCER SCREENING 3 YEAR 02/20/2022 02/20/2019, 09/26/2015 FOLLOW UP HIV SCREENING Completed 09/26/2015 FLU VACCINE > 6 MONTHS Completed 07/18/2019, 07/18/2019, 08/17/2018, Additional history exists documented as of this encounter Goals Goal Patient Goal Associated Recent Patient-Stated? Author Type Problems Progress lung transplant Lifestyle No Jenny Morgan MD documented as of this encounter Procedures Procedure Name Priority Date/Time Associated Diagnosis Comments SPIROMETRY (IN Routine 12/21/2019 Cystic fibrosis with Results for this CLINIC) pulmonary manifestations [place] [place]. documented in this encounter Results SPIROMETRY (IN CLINIC) (12/21/2019) Specimen Narrative Performed At Tere Diaz NP 12/21/2019 11:14 AM Please see graphic report for final interpretation. 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 xxxxxxxxx 2019-Prese [address] [address] Medicaid [place] [address] documented as of this encounter
--- OUTSIDE RECORDS SUMMARY | 2019-12-30 18:10 | XMS REPORT | Summary of Care ---
:1990 Author Organization [facility] Address [address] [place] [id number] Care Team Providers Name Role Phone Monique Dooley Primary Care Provider Encounter Details Date Type Department Care Team Description 11/14/2019 Patient Secure [facility] Doctor Unassigned, [facility] [place] [address] [place] [id number] [place] [address] Allergies Active Allergy Reactions Severity Noted Date [...] as of this encounter (statuses as of 12/16/2019) Medications Medication Sig Dispensed Refills Start Date [...] 2,000 unit tablet fluticasone 50 Use 1 [place] in each 0 Active mcg/actuation nasal nostril. spray insulin lispro Inject 0 02/01/2015 Active (HUMALOG KWIKPEN) subcutaneously as 100 unit/mL pen directed. Inject 1 injector unit per every 20 carbohydrates subcutaneously with every meal. levalbuterol Inhale 2 Puffs. 0 Active (XOPENEX HFA) 45 mcg/actuation inhaler Vhgeit-Geiukuqm-Escp Take 5 Caps by 0 Active ase [...] DIRECTED TO 5 11/12/2017 Active gauge x 5/32" Ndle INJECT 7 TIMES DAILY voriconazole 200 mg TK 1 T PO BID 5 01/10/2018 Active tablet mupirocin 2 % Apply to area(s) 3 22 g 0 06/08/2019 Active ointmentIndications: (three) times daily. Papule diltiazem 120 mg 24 Take 1 tablet by 60 tablet 2 07/05/2019 Active hr mouth 2 (two) times tabletIndications: daily. Essential hypertension documented as of this encounter (statuses as of 12/16/2019) Active Problems Problem Noted Date Depo-Provera contraceptive status 01/13/2017 Yeast vaginitis 01/13/2017 Pap smear abnormality of cervix with LGSIL 11/22/2015 Diabetes mellitus due to cystic fibrosis 07/18/2014 Cystic fibrosis 07/18/2014 Need for HPV vaccine 07/18/2014 documented as of this encounter (statuses as of 12/16/2019) Resolved Problems Problem Noted Date Resolved Date Contraceptive patch status 11/28/2015 01/13/2017 documented as of this encounter (statuses as of 12/16/2019) Immunizations Name Administration Dates Next Due HPV9 [...] Visit Obstetrics & Gynecology Arti Cabrales PA-C [address] [place] [id number] Health Maintenance Due Date Last Done [...] ID Effective Dates Phone Address Type Group [facility] xxxxxxxxx 2014-Present Medicaid COMM PLAN - PLUS MANAGED MEDICAID documented as of this encounter
--- NOTE | 2019-12-30 18:26 | RAD REPORT ---
EXAM DESCRIPTION: CT - Head C Spine Mpr Wo Con - 12/30/2019 6:10 pm CLINICAL HISTORY: Head and neck injury status post fall. Head and neck pain COMPARISON: 2013 TECHNIQUE: Computed axial tomography of the head and cervical spine was obtained. Sagittal and coronal reconstruction was performed. All CT scans are performed using dose optimization technique as appropriate and may include automated exposure control or mA/KV adjustment according to patient size. FINDINGS: Cerebellar tonsillar ectopia is present. An intracranial bleed is not seen. The ventricles are normal in caliber. An extra-axial fluid collect ion is not noted.Fluid within the visualized sinuses and mastoids is not seen A cervical fracture is not visualized. No dislocation is noted. IMPRESSION: Cerebellar tonsillar ectopia No acute intracranial abnormality is seen. A cervical fracture is not visualized. If the patient continues to have symptoms to suggest intracra nial /spinal cord pathology then MRI would be recommended
--- NOTE | 2019-12-30 19:04 | EDPHYS ---
Physician Documentation [facility] Name: Ester Hagen Age: 29 yrs Sex: Female : 1990 Arrival Date: 12/30/2019 Time: 17:30 Bed 24 Private MD: ED Physician Nael Catalan HPI: 12/29 18:23 This 29 yrs old Black Female presents to ER via Ambulatory with complaints of Fall kb Injury, Head Injury-Adult. 18:23 Details of fall: The patient fell from an upright position, while walking. Onset: The kb symptoms/episode began/occurred yesterday. Associated injuries: The patient sustained injury to the head, pain, neck injury, pain, pain with movement. Severity of symptoms: At their worst the symptoms were moderate, in the emergency department the symptoms are unchanged. The patient has not experienced similar symptoms in the past. The patient has not recently seen a physician. Pt reports she slipped and fell yesterday striking head. Reports headache and neck pain. Denies LOC, AMS, n/v.. Historical: - Allergies: 17:36 Amikacin; tw2 17:36 Betadine; tw2 17:36 Decadron; tw2 17:36 Iodinated Contrast Media - IV Dye; tw2 - Home Meds: 17:36 Humalog Mix 75-25 100 unit/mL (75-25) Sub-Q susp [Active]; tw2 17:43 Elexacaf - Tezacaf-IVacaf 100-5--75 mg 2 tables by mouth 1 am and 1 tab at pm [Active]; tw2 Vitamin D 1.25 mg Oral daily [Active]; dornase brittani inhalation 1 mg inhalation once daily for Respiratory Cystic Fibrosis [Active]; sodium chloride 7 % inhalation nebu [Active]; albuterol sulfate 2.5 mg/0.5 mL Inhl nebu 0.5 mL every 6 hours [Active]; zolpidem 10 mg Oral tab 1 tab once daily [Active]; Zyrtec 10 mg oral cap [Active]; azithromycin 500 mg Oral tab 1 tab every wednesday and wednesday [Active]; omeprazole 20 mg Oral cpDR 1 cap once daily [Active]; dronabinol 2.5 mg oral cap 1 cap 2 times per day [Active]; duloxetine 30 mg oral cpDR 1 cap once daily [Active]; levalbuterol tartrate inhalation inhalation [Active]; fluticasone inhalation inhalation [Active]; pancrelipase, 2400-05981 units, take 5 capsules by mouth with meals and take 2 capsules by mouth every day with snacks. [Active]; diltiazem HCl 60 mg Oral cp12 1 cap 2 times per day [Active]; ondansetron HCl 4 mg Oral tab 2 tabs 3 times per day [Active]; mirtazapine 7.5 mg Oral tab 2 tabs once daily [Active]; - PMHx: 17:36 Asthma; CYSTIC FIBROSIS; Diabetes - IDDM; tw2 - PSHx: 17:36 Port A Cath Right Chest; tw2 - Immunization history:: Adult Immunizations. - Social history:: Smoking status: Patient/guardian denies using. ROS: 18:22 Constitutional: Negative for fever, chills, and weight loss, ENT: Negative for injury, kb pain, and discharge, Cardiovascular: Negative for chest pain, palpitations, and edema, Respiratory: Negative for shortness of breath, cough, wheezing, and pleuritic chest pain, Abdomen/GI: Negative for abdominal pain, nausea, vomiting, diarrhea, and constipation, Back: Negative for injury and pain, MS/Extremity: Negative for injury and deformity, Skin: Negative for injury, rash, and discoloration. 18:22 Neck: Positive for pain with movement, pain at rest. 18:22 Neuro: Positive for headache. Exam: 18:21 Constitutional: This is a well developed, well nourished patient who is awake, alert, kb and in no acute distress. ENT: Nares patent. No nasal discharge, no septal abnormalities noted. Tympanic membranes are normal and external auditory canals are clear. Oropharynx with no redness, swelling, or masses, exudates, or evidence of obstruction, uvula midline. Mucous membranes moist. Chest/axilla: Normal chest wall appearance and motion. Nontender with no deformity. No lesions are appreciated. Cardiovascular: Regular rate and rhythm with a normal S1 and S2. No gallops, murmurs, or rubs. Normal PMI, no JVD. No pulse deficits. Respiratory: Lungs have equal breath sounds bilaterally, clear to auscultation and percussion. No rales, rhonchi or wheezes noted. No increased work of breathing, no retractions or nasal flaring. Abdomen/GI: Soft, non-tender, with normal bowel sounds. No distension or tympany. No guarding or rebound. No evidence of tenderness throughout. Skin: Warm, dry with normal turgor. Normal color with no rashes, no lesions, and no evidence of cellulitis. MS/ Extremity: Pulses equal, no cyanosis. Neurovascular intact. Full, normal range of motion. Neuro: Awake and alert, GCS 15, oriented to person, place, time, and situation. Cranial nerves II-XII grossly intact. Motor strength 5/5 in all extremities. Sensory grossly intact. Cerebellar exam normal. Normal gait. 18:21 Head/face: Noted is no obvious of injury or deformity except hematoma, that is mild, of the left side of the back of head. 18:21 Neck: C-spine: vertebral tenderness, that is moderate, diffusely. Vital Signs: 17:33 BP 126 / 93; Pulse 118; Resp 17; Temp 97.5(TE); Pulse Ox 98% on R/A; Weight 49.9 kg tw2 (R); Height 5 ft. 1 in. (154.94 cm); Pain 9/10; 17:33 Body Mass Index 20.78 (49.90 kg, 154.94 cm) tw2 MDM: 17:50 Patient medically screened. kb 18:22 Data reviewed: vital signs, nurses notes. Data interpreted: Pulse oximetry: on room air kb is 98 %. Interpretation: normal. 19:02 Counseling: I had a detailed discussion with the patient and/or guardian regarding: the kb historical points, exam findings, and any diagnostic results supporting the discharge/admit diagnosis, radiology results, the need for outpatient follow up, a family practitioner, to return to the emergency department if symptoms worsen or persist or if there are any questions or concerns that arise at home. 12/29 17:54 Order name: CT Head C Spine; Complete Time: 18:58 kb Administered Medications: 19:23 Drug: Likely (7.5 mg-325 mg) 1 tabs Route: PO; ls4 Disposition: 12/30 10:08 Co-signature as Attending Physician, Nael Catalan MD. rn Disposition: 12/30/19 19:03 Discharged to Home. Impression: Fall on same level from slipping, tripping and stumbling, Superficial injury of head, Cervicalgia. - Condition is Stable. - Discharge Instructions: Musculoskeletal Pain, Head Injury, Adult, [id number]. - Prescriptions for Cyclobenzaprine 10 mg Oral Tablet - take 1 tablet by ORAL route every 8 hours As needed; 21 tablet. Diclofenac Sodium 75 mg Oral Tablet, Delayed Release (E.C.) - take 1 tablet by ORAL route 2 times per day As needed; 30 tablet. - Medication Reconciliation Form, Thank You Letter, Antibiotic Education, Prescription Opioid Use form. - Follow up: Emergency Department; When: As needed; Reason: Worsening of condition. Follow up: Private Physician; When: 2 - 3 days; Reason: Recheck today's complaints, Continuance of care, Re-evaluation by your physician. Signatures: Dispatcher [employer] EDMS Rosaura Wheeler, INTEGRATED CIRCUIT DESIGN ENGINEER-C INTEGRATED CIRCUIT DESIGN ENGINEER-CkNael Torres MD MD rn Wise, Tara, RN RN tw2 Chaya Lin RN RN ls4 Corrections: (The following items were deleted from the chart) 12/29 20:26 19:03 12/30/2019 19:03 Discharged to Home. Impression: Fall on same level from ls4 slipping, tripping and stumbling; Superficial injury of head; Cervicalgia. Condition is Stable. Forms are Medication Reconciliation Form, Thank You Letter, Antibiotic Education, Prescription Opioid Use. Follow up: Emergency Department; When: As needed; Reason: Worsening of condition. Follow up: Private Physician; When: 2 - 3 days; Reason: Recheck today's complaints, Continuance of care, Re-evaluation by your physician. kb
--- NOTE | 2019-12-30 19:04 | ER ---
Nurse's Notes [facility] Name: Ester Hagen Age: 29 yrs Sex: Female : 1990 Arrival Date: 12/30/2019 Time: 17:30 Bed 24 Private MD: Diagnosis: Fall on same level from slipping, tripping and stumbling;Superficial injury of head;Cervicalgia Presentation: 12/29 17:33 Chief complaint: Patient states: yesterday i slipped and fell and hit the back of my tw2 head and i have a headache and it has gotten worse, denies LOC, and i have a lot fo pain in my neck as well. Coronavirus screen: The patient has NOT traveled to a country currently being monitored by the CDC within the last 14 days. Ebola Screen: Patient denies travel to an Ebola-affected area in the 21 days before illness onset. Initial Sepsis Screen: Does the patient meet any 2 criteria? HR > 90 bpm. No. Patient's initial sepsis screen is negative. Does the patient have a suspected source of infection? No. Patient's initial sepsis screen is negative. Risk Assessment: Do you want to hurt yourself or someone else? Patient reports no desire to harm self or others. 17:33 Method Of Arrival: Ambulatory tw2 17:43 Acuity: DEDRA 3 tw2 Triage Assessment: 17:43 General: Appears in no apparent distress. slender, well groomed, Behavior is calm, tw2 cooperative, appropriate for age. Pain: Complains of pain in headache. Historical: - Allergies: 17:36 Amikacin; tw2 17:36 Betadine; tw2 17:36 Decadron; tw2 17:36 Iodinated Contrast Media - IV Dye; tw2 - Home Meds: 17:36 Humalog Mix 75-25 100 unit/mL (75-25) Sub-Q susp [Active]; tw2 17:43 Elexacaf - Tezacaf-IVacaf 100-5--75 mg 2 tables by mouth 1 am and 1 tab at pm [Active]; tw2 Vitamin D 1.25 mg Oral daily [Active]; dornase brittani inhalation 1 mg inhalation once daily for Respiratory Cystic Fibrosis [Active]; sodium chloride 7 % inhalation nebu [Active]; albuterol sulfate 2.5 mg/0.5 mL Inhl nebu 0.5 mL every 6 hours [Active]; zolpidem 10 mg Oral tab 1 tab once daily [Active]; Zyrtec 10 mg oral cap [Active]; azithromycin 500 mg Oral tab 1 tab every wednesday and wednesday [Active]; omeprazole 20 mg Oral cpDR 1 cap once daily [Active]; dronabinol 2.5 mg oral cap 1 cap 2 times per day [Active]; duloxetine 30 mg oral cpDR 1 cap once daily [Active]; levalbuterol tartrate inhalation inhalation [Active]; fluticasone inhalation inhalation [Active]; pancrelipase, 2400-18790 units, take 5 capsules by mouth with meals and take 2 capsules by mouth every day with snacks. [Active]; diltiazem HCl 60 mg Oral cp12 1 cap 2 times per day [Active]; ondansetron HCl 4 mg Oral tab 2 tabs 3 times per day [Active]; mirtazapine 7.5 mg Oral tab 2 tabs once daily [Active]; - PMHx: 17:36 Asthma; CYSTIC FIBROSIS; Diabetes - IDDM; tw2 - PSHx: 17:36 Port A Cath Right Chest; tw2 - Immunization history:: Adult Immunizations. - Social history:: Smoking status: Patient/guardian denies using. Screenin:52 Abuse screen: Denies threats or abuse. Denies injuries from another. Nutritional ls4 screening: No deficits noted. Tuberculosis screening: No symptoms or risk factors identified. Fall Risk None identified. Assessment: 17:35 General: Appears in no apparent distress. ls4 19:10 Reassessment: Patient appears in no apparent distress at this time. Patient and/or ls4 family updated on plan of care and expected duration. Pain level reassessed. Patient is alert, oriented x 3, equal unlabored respirations, skin warm/dry/pink. Neuro: Level of Consciousness is awake, alert, obeys commands, Denies weakness blurred vision dizziness, difficulty swallowing, paresthesias numbness headache photophobia. Cardiovascular: No deficits noted. Respiratory: No deficits noted. Respiratory: Parent/caregiver reports the patient having PT HAS CF, HAS A CHRONIC COUGH. DENIES ANY NEW OR WORSE THAN USUAL SYMPTOMS. GI: No deficits noted. : No deficits noted. Derm: No deficits noted. No signs and/or symptoms reported regarding the dermatologic system. Musculoskeletal: No deficits noted. No signs and/or symptoms reported regarding the musculoskeletal system. Vital Signs: 17:33 BP 126 / 93; Pulse 118; Resp 17; Temp 97.5(TE); Pulse Ox 98% on R/A; Weight 49.9 kg tw2 (R); Height 5 ft. 1 in. (154.94 cm); Pain 9/10; 17:33 Body Mass Index 20.78 (49.90 kg, 154.94 cm) tw2 ED Course: 17:30 Patient arrived in ED. ag5 17:35 Triage completed. tw2 17:36 Arm band placed on. tw2 17:40 Patient has correct armband on for positive identification. Bed in low position. Call ls4 light in reach. Side rails up X 1. Adult w/ patient. 17:40 Pulse ox on. NIBP on. Verbal reassurance given. ls4 17:50 Rosaura Wheeler FNP-C is PHCP. kb 17:50 Nael Catalan MD is Attending Physician. kb 18:03 Chaya Lin, RN is Primary Nurse. ls4 18:11 CT Head C Spine In Process Unspecified. EDMS Administered Medications: 19:23 Drug: [place] (7.5 mg-325 mg) 1 tabs Route: PO; ls4 Outcome: 19:03 Discharge ordered by . kb 20:26 Patient left the ED. ls4 Signatures: Dispatcher [employer] EDMS Rosaura Wheeler FNP-C FNP-Amanda Hannon RN RN 2 Chaya Lin, JORDON RN 4 Keerthi Tipton ag5 Corrections: (The following items were deleted from the chart) 17:43 17:33 Acuity: DEDRA 4 tw2 tw2
[2019-12-30] MEDS ORDERED: HYDROCODONE/APAP 7.5/325 MG TAB ONE (19:18)
[2019-12-30 20:39] VITALS: BP 126/93; TEMP 97.5; O2SAT 98
== END 2019-12-30 20:26 | disposition home or self-care (01) ==
LOC: ER 17:28
DX: S00.90XA Unspecified superficial injury of unspecified part of head, initial encounter (principal); W01.0XXA Fall on same level from slipping, tripping and stumbling without subsequent striking against object, initial encounter; Y93.01 Activity, walking, marching and hiking; Y92.9 Unspecified place or not applicable; E11.9 Type 2 diabetes mellitus without complications; J45.909 Unspecified asthma, uncomplicated; Z79.4 Long term (current) use of insulin; Z88.8 Allergy status to other drugs, medicaments and biological substances; Z91.048 Other nonmedicinal substance allergy status
CPT/HCPCS: 70450; 72125; 99283

== ENCOUNTER 2021-10-15 06:18 | Emergency (ER) | payer OTHER ==
--- OUTSIDE RECORDS SUMMARY | 2021-10-15 06:44 | XMS REPORT | Continuity of Care Document ---
:1990 Author Organization [facility] t Address [address] [place] [address] Care Team Providers Name Role Phone PREGIBRANS Primary Care Physician Unavailable Eligio SOLORZANO Attending Clinician ELIGIO Attending Clinician Unavailable Nurse, [facility] Attending Clinician Unavailable LUIS Attending Clinician Unavailable JOE Attending Clinician Unavailable Luis STAPLETON Attending Clinician Sara RAMIREZ Attending Clinician Unavailable Joe PUENTES Attending Clinician ANTONI Attending Clinician Unavailable Sara FORMAN Attending Clinician Unavailable ADDISON RAINEY Attending Clinician Unavailable Ivan Ramirez DO Attending Clinician John Pual Morgan MD Attending Clinician Alexy STAPLETON Attending Clinician Christin STAPLETON Attending Clinician ENEDINA GOSS Attending Clinician Unavailable Sia STAPLETON Attending Clinician ABBEY SMITH Attending Clinician Unavailable CASSANDRA MATTHEWS Attending Clinician Unavailable REAL DOUGLAS Attending Clinician Unavailable EVERARDO SOLITARIO Attending Clinician Unavailable JACQUE PEREIRA Attending Clinician Unavailable CASSANDRA BARRY Attending Clinician Unavailable BREE VIGIL Attending Clinician Unavailable HUMERA URENA Attending Clinician Unavailable JESSICA Attending Clinician Unavailable MIR Attending Clinician Unavailable Wandy VALADEZ Attending Clinician Unavailable TRISTEN MAST Attending Clinician Unavailable Wendie NATHAN Attending Clinician Unavailable CARMEN Attending Clinician Unavailable Hank TURNER Attending Clinician Unavailable ALBERTO ROY Attending Clinician Unavailable JOCELYN HEART Admitting Clinician Unavailable HUMERA HANEY Admitting Clinician Unavailable KALLIE Admitting Clinician Unavailable CASSANDRA SIMON Admitting Clinician Unavailable INGE Admitting Clinician Unavailable LIBRADO HANDY Admitting Clinician Unavailable Luz HERNANDEZ Admitting Clinician Unavailable CAREN Admitting Clinician Unavailable Wandy VALADEZ Admitting Clinician Unavailable TRISTEN MAST Admitting Clinician Unavailable VICTORINO Admitting Clinician Unavailable MIR Admitting Clinician Unavailable Payers Payer Name Policy Type Policy Number Effective Date Expiration Date S [facility] PLAN [id number] 2014 ST[employer] PLUS - UHC 00:00:00 BEHAVIORAL HEALTH [id number] STAR PLUS - REEVES [id number] 2014 2014 00:00:00 00:00:00 [facility]-MEDICA[facility] - [id number] MEDICAID [facility] COMM STAR [id number] 2011 PLAN 00:00:00 [employer] NON-UNITED [id number] 2011 STAR 00:00:00 Problems Condition Condition Condition Status Onset Resolution Last Treating Co mments Source Name Details Category Date Date Treatment Clinician Date Anxiety Anxiety Disease Active Last [facility] 3[facility]15 [facility] 00:00: t & Plan: of 00 Formattin Medicin g of this e note might be different from the original. Ester is having significa nt anxiety surroundi ng the pandemic stating she doesn't want to leave her house, but she had been out to dentist, gynecolog ist, pulmonolo gist, and is planning on going to infusion center. She is refusing to go to see endocrine due to anxiety though. Will ask social workers to assist her with finding counselin g resources . Tachycardi Tachycardi Disease Active [facility] -30 College 00:00: of 00 Medicin e Sleep-rela Sleep-rela Disease Active Zander greco magdaleno magdaleno 05-[facility] hypoventil hypoventil 00:00: t & Plan: of ation due ation due 00 Formattin M edicin to to g of this e pulmonary pulmonary note parenchyma parenchyma might be l l different pathology pathology from the original. No downloadP atient reports excellent usePatien t appreciat es and acknowled ges the benefit form PAP on sleep quality and daytime function Pt commended on use and encourage d to continueS etting change; none Hypoxemia Hypoxemia Disease Active Last [place] [facility] 00:00: t & Plan: of 00 Formattin Medicin g of this e note might be different from the original. Sec to lung disease, will need NPO Dysfunctio Dysfunctio Disease Active Jane greco ns ns 8 [facility] associated associated 00:00: t & Plan: of with sleep with sleep 00 Formattin Medicin stages or stages or g of this e arousal arousal note from sleep from sleep might be different from the original. Difficult y maintaini ng sleep with poor sleep hygiene practices , also related to chronic illnessWi ll refer to Dr Zhanna bazan for evaluatio n and counselin g Poor sleep Poor sleep Disease Active Zander Lara [facility] hygiene hygiene 05-28 [facility] 00:[facility]: t & Plan: of 00 Formattin Medicin g of this e note might be different from the original. Counseled on sleep hygiene practice Chronic Chronic Disease Active [facility] sinusitis sinusitis 11-22 [facility] 00:00: of 00 Medicin e High risk High risk Disease Active Overview: [facility] medication medication 11-10 [facility] use use 00:00: g of this of 00 note Medicin might be e different from the original. [facility] 11/08 - : Merrem 2G q 8H & Colistin 70 mg q 8H x 11 days. (23/0.80) [facility] 04/12- 04/25/19: Colistin 50mg Q12 and Merrem 2G Q8 [facility] 08/29 - 9: Colistin 50 mg q 12H and Merrem 2G q 8H. Generalize Generalize Disease Active Last B aylor d d 5-[facility] headaches headaches 00:00: t & Plan: o f 00 Formattin Medicin g of this e note might be different from the original. Better on nortrypty line Depo-Prove Depo-Prove Disease Active U glenn ra ra 3-22 [place] of [place] norm[place] status norma status 00 Me dical Branch Low back Low back Disease Active 2015-10 Last [facility] r pain pain 0-26 [facility] College 00:00: t & Plan: of Formattin Medicin g of this e note might be different from the original. Persisten t, due to coughing. Currentl y using tramadol. Previous success with lidoderm patch in the hospital. Will order through insurance . 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 9-24 ity of due to due to 00:00: [place] cystic cystic 00 Medical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 Branch Cystic Cystic Disease Active Univers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 9-24 ity of 00:00: [place] [id number] Medical Branch Need for Need for Disease Active Unive rs HPV HPV 9-24 ity of vaccine vaccine 00:00: [place] [address] Medical Branch Encounter Encounter Disease Active [facility] 8-21 [place] long-term long-term 00:00: of (current) (current) 00 Medi [place] use of use of e steroids steroids Vitamin D Vitamin D Disease Active Overview: [facility] insufficie insufficie 8-20 [facility] ncy ncy 00:00: g of this note Medicin might be e different from the original. 03/2014 Vitamin D: 18.41/201 4 DEXA scan:Left femoral neck bone mineral density: 0.751 G/cm2, Z-score is -0.9. Left hip total bone mineral density: 0.923 G/cm2, Z-score is -0.2. Lumbar spine total bone mineral density: 0.934 Gm/cm2, Z-score is -0.8. Last Assessmen t & Plan: Formattin g of this note might be different from the original. Repeat Vitamin D level Vitamin D Vitamin D Disease Active Overview: [facility] insufficie insufficie 8-20 03/2014 Co llege ncy ncy 00:00: Vitamin of 00 D: Medicin 18.41/201 e 4 DEXA scan:Left femoral neck bone mineral density: 0.751 G/cm2, Z-score is -0.9. Left hip total bone mineral density: 0.923 G/cm2, Z-score is -0.2. Lumbar spine total bone mineral density: 0.934 Gm/cm2, Z-score is -0.8. Last Assessmen t & Plan: Repeat Vitamin D level ABPA ABPA Disease [facility] (allergic (allergic 04-07 [facility] ollege bronchopul bronchopul 00:00: t & Plan: of monary monary 00 Formattin Medicin aspergillo aspergillo g of this e sis) sis) note (HCCode) (HCCode) might be different from the original. Will DC vfend and increase orkambi to full doseConti nue prednison e 10mg vascular vascular Disease Active [facility] port port 6-12 College 00:00: of 00 Medicin e Insomnia Insomnia Disease Active [facility] [place] 2-06 [facility] 00:00: t & Plan: of 00 Formattin Medicin g of this e note might be different from the original. Improved Cont same Malnutriti Malnutriti Disease Active [facility] Jane aylor on on 10-26 Assessmen [place] (HCCode) (HCCode) 00:00: t & Plan: of 00 Formattin Medicin g of this e note might be different from the original. Recommend ed trying [employer] Peptide Asthma Asthma Disease [facility] 1[facility]16 [facility] College 00:00: t & Plan: of 00 Formattin Medicin g of this e note might be different from the original. Wheezing and coughing attacks more frequent. Pancreatic Pancreatic Disease Active [facility] Jane greco insufficie insufficie 3-16 Assessmen College ncy ncy 00:00: t & Plan: of 00 Formattin Medicin g of this e note might be different from the original. Continue pancreati c enzyme supplemen tation Malabsorpt Malabsorpt Disease Active [facility] ion ion -16 [place] 00:00: of 00 Medicin e Hx ABPA Hx ABPA Disease Active Overview: [place] [facility] (allergic (allergic 01-07 Formattin C ollege bronchopul bronchopul 00:00: g of this of monary monary 00 note Medicin aspergillo aspergillo might be e sis) sis) different from the original. Treated several times at [facility] with "pulse steroid doses".Vo riconazol e started 08/[address] scan findingsL ast Assessmen t & Plan: Formattin g of this note might be different from the original. On voriconaz ole. Sensorineu Sensorineu Disease Active Overview : [facility] ral ral 01-07 [facility] hearing hearing 00:00: g of this of loss, loss, 00 note Medicin unspecifie unspecifie might be e d, 2004 d, 2003 different from the original. Has hearing aids. 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 PFT Results 02/02/2019 03/30/2019 04/12/2019 05/15/2019 FEV1 0.89 0.71 0.51 0.62 FEV1 % Exp 35 28 20 24 FVC 1.52 1.23 1.01 1.24 FVC % Expected 52 42 35 42 FEV1 / FVC 0.59 0.58 0.53 0.54 FEV1 / FVC % Exp 68 67 62 62 FEF 25-75% 0.4 0.29 0.2 0.24 FEF % Expec 13 9 6 8 Severe obstructi ve lung disease. Continue current inhaled regimen. Will DC voriconaz ole and continue prednison e 10mg for now. Can increase orkambi to full doseDue for annual labs. Follow up 6 weeks. Diabetes Diabetes Disease Active Overview: [facility] mellitus mellitus 04-10 Formattin Col lege related to related to 00:00: g of this of cystic cystic 00 note Medicin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 might be e (HCCode) (HCCode) different from the original. NPH 35 units daily while on prednison e, lispro carb ratio 1:8 and correctio n factor 1:25 for pre-prand ial glucose >150 AM BG in 100-200s, PM glucoses often >300Last A1c = 12.9% Last Assessmen t & Plan: Formattin g of this note might be different from the original. Patient continues to have very poor control. Unclear if she uses her insulin pump at all, hadn't uploaded data, significa ntly uncontrol led sugars, not wearing it today. Follow up with endocrine . Will check A1C when she gets her port flushed tomorrow. HX HX Disease Active Last [facility] Atypical Atypical 04-10 Assessmen Col lege mycobacter mycobacter 00:00: t & Plan: of ial ial 00 Formattin Medicin disease, disease, g of this e abscessus, abscessus, note treated treated might be 2002 2002 different from the original. Recurrent . Consult ID - specific question, treating M Abscessus Previousl y tried to treat with Tygacil -- patient unable to tolerate due to nausea (weight loss down to 80s lbs). Previous treatment with amikacin resulted in hearing loss. Concern with progressi vely decreasin g lung function - patient will not be candidate for transplan t if can't clear burden of M Abscessus . ? If clofazimi ne is an option. 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 PFT Results 10/28/2020 12/18/2020 01/06/2021 01/06/2021 FEV1 1.14 1.26 1.12 1.15 FEV1 % Exp 45 50 44 45 FVC 2.33 2.45 2.47 2.31 FVC % Expected 80 84 85 77 FEV1 / FVC 0.49 0.51 0.45 0.53 FEV1 / FVC % Exp 57 59 53 61 FEF 25-75% 0.37 0.47 0.34 0.44 FEF % Expec 12 16 11 14 PEF 5.01 4.65 4.18 Moderate obstructi ve lung disease at patient's baseline. Patient is toleratin g and demonstra marck improveme nt in lung function and quality of life with Trikafta. Recommen d continuin g current therapy. Continue current regimen. Patient is unable to tolerate nebulized albuterol due to tachycard ia will trial nebulized levalbute rol. Follow up 3 mo Allergies, Adverse Reactions, Alerts Allergy Allergy Status Severity Reaction(s) Onset Inactive Treating Comm ents Source Name Type Date Date Clinician DYE DRUG Active N/V Univers INGREDI 3-22 ity of 00:00: [place] 00 Medical Branch IODINATE Drug Active N/V Univers D Class 3-22 ity of CONTRAST 00:00: [place] MEDIA 00 Medical Branch Iodine Propensi Active Nausea And [place] ty to Vomiting 01-13 College adverse 00:00: of reaction 00 Medicin s to e drug Dye Propensi Active Nausea Univers ty to and/or 01-13 ity of adverse Vomiting 00:00: [place] reaction 00 Medical s Branch Iodinate Propensi Active Nausea Univer s d ty to and/or 01-13 ity of Contrast adverse Vomiting 00:00: [place] Media reaction 00 Medical s Branch DYE Allergy Active N\\T\\V [facility] 3-22 00:00: 00 IODINATE Allergy Active N\\T\\V [facility] D 7-06 CONTRAST 00:00: MEDIA 00 I.V. Dye Propensi Active Vomiting [place] ty to Only 7 College adverse 00:00: of reaction 00 Medicin s to e substanc e IODINE Allergy Active N\\T\\V [facility] AND 04-25 IODIDE 00:00: CONTAINI 00 NG PRODUCTS POVIDONE Allergy Active High Rash [facility] -IODINE 3-23 (WITH 00:00: SOAP) 00 Povidone Propensi Active Rash Jayesh -Iodine ty to 8-20 College adverse 00:00: of reaction 00 Medicin s to e drug POVIDONE DRUG Active High Rash Univers -IODINE INGREDI 8-20 ity of 00:00: [place] 00 Medical Branch AMIKACIN DRUG Active Other-Cmnt Univ ers (BULK) 8-20 ity of 00:00: [place] 00 Medical Branch DEXAMETH DRUG Active Other-Cmnt Univ ers ASONE 8-20 ity of SODIUM 00:00: [place] PHOSPHAT 00 Medical E Branch Amikacin Propensi Active Other - See Hearing Univers (Bulk) ty to comments 8-20 loss ity of adverse 00:00: [place] reaction 00 Medical s Branch Povidone Propensi Active Rash Univer s -Iodine ty to 8-20 ity of adverse 00:00: [place] reaction 00 Medical s Branch Dexameth Propensi Active Other - See Turns re d Univers asone ty to comments 8-20 ity of Sodium adverse 00:00: [place] Phosphat reaction 00 Medica l e s Branch Amikacin Propensi Active Severe Hearing [place] ty to 3-24 lost College adverse 00:00: Hearing of reaction 00 lostPatie Medic in s to nt stated e drug "Amikacin takes away my hearing." AMIKACIN Allergy Active High Other [facility] 3-24 00:00: 00 POVIDONE Allergy Active High Rash [facility] -IODINE 316 00:00: 00 Povidone Propensi Active Rash Jayesh Iodine ty to 3-16 College adverse 00:00: of reaction 00 Medicin s to e drug Dexameth Propensi Active Rash Other Jayesh asone ty to 3-16 reaction( [place] adverse 00:00: s): of reaction 00 Unknown - Medic in s to See e drug commentsT urns redPatien t stated "Decadron makes me turn red."Turn s redPatien t stated "Decadron makes me turn red." DEXAMETH DRUG Active High Unknown-Cmnt Un narcisa ASONE INGREDI 01-07 ity of 00:00: [place] [facility] Dexameth Propensi Active Rash Turns Univer s asone ty to 01-07 redPatien ity of adverse 00:00: t stated [place] reaction 00 "Decadron Medic al s makes me Branch turn red." DEXAMETH Allergy Active High Rash [facility] ASONE 01-07 00:00: 00 Social History Social Habit Start Date Stop Date Quantity Comments Source Exposure to Not sure [place] of SARS-CoV-2 [place] Medical (event) Branch History [facility] o f Alcohol Comment [place] Med ical Branch History [facility] o f Alcohol Std [place] [facility] Drinks Branch History [facility] o f Alcohol Binge [place] Medic al Branch Alcohol intake 2020-11-07 2020-11-07 Current drinker [facility] of 00:00:00 00:00:00 of alcohol Medicine (finding) Tobacco use and 2020-11-07 2020-11-07 Never used [facility] llege of exposure 00:00:00 00:00:00 Medicine History [facility] 2019-12-21 2019-12-21 21 [facility] of Education 00:00:00 00:00:00 Medicine History [facility] 2019-05-02 2019-05-02 1 University o f Alcohol Frequency 00:00:00 00:00:00 [facility] edical Branch Sex Ass[birth year] At [birth year] Universit y of 00:00:00 00:00:00 [facility] Smoking Status Start Date Stop Date Source Never smoker [facility] o f Medicine Medications Ordered Filled Start Stop Current Ordering Indication Dosage Frequency Signature Comments Components Source Medication Medication Date Date Medication? Clinician (SIG) Name Name valACYclovi 2020-10 Yes [id number] 1g Take 1 Univers r 1 gram 2-21 tablet by ity of tablet 00:00: mouth 2 [place] 00 (two) Medical times Branch daily. valACYclovi 2020-10 Yes [id number] 1g Take 1 Univers r 1 gram 2-21 tablet by ity of tablet 00:00: mouth 2 [place] 00 (two) Medical times Branch daily. fluconazole 2020-10- Yes [id number] 150mg Take 1 Univers 150 mg 2-21 12-22 tablet by ity of tablet 00:00: 05:59 mouth [place] 00 :[place] now for 1 Medical dose. Branch fluconazole 2020-10- Yes [id number] 150mg Take 1 Univers 150 mg 2-21 12-22 tablet by ity of tablet 00:00: 05:59 mouth [place] 00 :[place] now for 1 Medical dose. Branch valACYclovi 2020-10- No 1g Take 1 Uni vers r 1 gram 0-27 12-21 tablet by ity o f tablet 00:00: 00:00 mouth 2 [place] 00 :00 (two) Medical times Branch daily. valACYclovi 2020-10- No 1g Take 1 Uni vers r 1 gram 0-27 12-21 tablet by ity o f tablet 00:00: 00:00 mouth [place] 00 :00 daily. Medical Branch valACYclovi 2020-10 No 1g Take 1 Uni vers r 1 gram 0-27 12-21 tablet by ity o f tablet 00:00: 00:00 mouth 2 [place] 00 :00 (two) Medical times Branch daily. valACYclovi 2020-10- No 1g Take 1 Uni vers r 1 gram 0-27 12-21 tablet by ity o f tablet 00:00: 00:00 mouth [place] 00 :00 daily. Medical Branch mupirocin 2 2020-10- No [id number] Apply to Univers % ointment 0- 12-21 area(s) 3 ity of 00:00: 00:00 (three) [place] 00 :00 times Medical daily. Branch mupirocin 2 2020-10- No [id number] Apply to Univers % ointment 0-01 12-21 area(s) 3 ity of 00:00: 00:00 (three) [place] 00 :00 times Medical daily. Branch metroNIDAZO 2020- No [id number] 500mg Take 1 Univers LE 500 mg - 12-21 tablet by ity of tablet 00:00: 00:00 mouth [place] 00 :00 every 12 Medical (twelve) Branch hours. metroNIDAZO 2020- No [id number] 500mg Take 1 Univers LE 500 mg 07-16 12- tablet by ity of tablet 00:00: 00:00 mouth [place] 00 :00 every 12 Medical (twelve) Branch hours. sodium Yes 3mL Use 3 mL Univers chloride 7-28 as ity of 0.9 % 15:03: directed [place] nebulizer 40 as needed Medic al solution for Branch Wheezing. tobramycin Yes 300mg 300 mg. Uni vers (KEREN) 300 7-28 ity of mg/5 mL 15:03: [place] nebulizer 40 Medical solution Branch sodium Yes 3mL Use 3 mL Univers chloride 7-28 as ity of 0.9 % 15:03: directed [place] nebulizer 40 as needed Medic al solution for Branch Wheezing. tobramycin Yes 300mg 300 mg. Uni vers (KEREN) 300 7-28 ity of mg/5 mL 15:03: [place] nebulizer 40 Medical solution Branch mirtazapine Yes [id number] 7.5mg Take 7.5 [facility] (REMERON) 3-15 mg by [place] 7.5 MG 16:19: mouth of tablet 05 nightly. Medicin e diltiazem Yes 1{tbl} Take 1 Tab Jayesh 120 MG TABS 3-15 by mouth [place] 16:19: two times of 05 daily. Medicin e azithromyci Yes [id number] 500mg Take 1 [facility] n 3-10 Tablet by [place] (ZITHROMAX) 00:00: mouth of 500 MG 00 every Medicin tablet Wednesday, e Wednesday, Wednesday. sodium Yes [id number] 4mL Take 1 [place] chloride, 3-10 Ampule by [facility] Inhalant, 00:00: nebulizati of (HYPER-ELISSA) 00 on two Medici n 7 % times e nebulizer daily. solution fluticasone Yes [id number] 2{spray 2 Sprays [facility] (FLONASE) 3-10 } by Each [place] 50 MCG/ACT 00:00: Nostril of nasal spray 00 route Medicin daily. e albuterol Yes USE 1 VIAL [facility] (PROVENTIL) 2-26 IN [place] (2.5 mg/3 00:00: NEBULIZER of mL) 0.083% 00 THREE Medicin nebulizer TIMES e solution DAILY NEEDED FOR SHORTNESS OF BREATH omeprazole Yes [id number] TAKE 1 B [facility] (PRILOSEC) 2-11 CAPSULE BY Col lege 20 MG 00:00: MOUTH of capsule 00 TWICE Medicin DAILY e Elexacaf-Te Yes [id number] Take 2 [facility] zacaf-Ivaca 1-15 tablets Malcolm ge f&Ivacaf 00:00: by mouth of (TRIKAFTA) 00 every Medicin 100-50-75 & morning e 150 MG TBPK AND 1 tablet (inactive) at bedtime. Take 12 hours apart with fat containing food Galcanezuma Yes 120mg Inject 120 [facility] b-gnlm 1-14 mg into College (EMGALITY) 00:00: the skin of 120 MG/ML 00 every 30 Medici n SOAJ days. e Insulin Pen Yes [id number] Use as [facility] Needle (BD 1-13 directed [facility] PEN NEEDLE 00:00: to inject of SAIRA U/F) 00 6 times Medicin 32G X 4 MM daily e MISC diazepam Yes [id number] 2mg Take 1 [place] (VALIUM) 2 1-04 Tablet by [place] MG tablet 00:00: mouth as of 00 needed for Medicin Anxiety. e Before procedure. Vitamin D, 2019-10 Yes [id number] Take 1 B aylor Ergocalcife 2-11 capsule by Co yaniv vang, 1.25 00:00: mouth of MG (08888 00 every 7 Medicin [place]) CAPS days e cetirizine, 2019-10 Yes [id number] TAKE 1 [facility] ZYRTEC, 10 1-30 TABLET BY [place] MG tablet 00:00: MOUTH of 00 DAILY AND Medicin EXTRA 1/2 e TABLET IF MEDICATION OVER DRIES [employer]BR[employer]ES levalbutero 2019-10 Yes [id number] INHALE 2 Jayesh l tartrate 1-11 PUFFS BY Malcolm canseco (XOPENEX 00:00: MOUTH of HFA) 45 00 EVERY Medicin MCG/ACT MORNING e AERO AND EVERY inhaler EVENING, MAY TAKE ADDITIONAL 2 PUFFS THROUGHOUT DAY IF NEEDED Nutritional 2019-10 Yes [id number] DRINK ONE Jayesh Supplements 1-05 BOTTLE BY Col lege (GLUCERNA 00:00: MOUTH of SHAKE) LIQD 00 TWICE Medicin DAILY e Continuous 2019-10 Yes 1{each} 1 Each [facility] Blood Gluc 0-21 every 10 Colle ge Sensor 00:00: days. of (DEXCOM G6 00 Medicin SENSOR) e MISC Continuous 2019-10 Yes 1{each} 1 Each [facility] Blood Gluc 0-21 continuous Col lege Lye Treater 00:00: . of (DEXCOM G6 00 Medicin SUPERVISOR BREW HOUSE) e EKTA Continuous 2019-10 Yes 1{each} 1 Each [facility] Blood Gluc 0-21 every 90 Colle ge Transmit 00:00: days. of (DEXCOM G6 00 Medicin TRANSMITTER e ) MISC Pancrelipas 2019-10 Yes [id number] TAKE 5 [facility] e, 0-06 CAPSULES College Lip-Prot-Am 00:00: BY MOUTH of yl, (CREON) 00 WITH Medicin [id number] MEALS, AND e units CPEP TAKE 2 CAPSULES BY MOUTH EVERY DAY WITH SNACKS esomeprazol 2019-0 Yes 40mg Take 40 mg Univers e (NEXIUM) 9 by mouth ity o f 40 mg 14:59: daily with [place] capsule 31 breakfast. Medica l Branch albuterol 2019-0 Yes 1{ampul 1 Ampule. Univers (ACCUNEB) 9- e} ity of 0.63 mg/3 14:59: [place] mL 31 Medical nebulizer Branch solution levalbutero 2019-0 Yes 2{puff} Inhale 2 Univers l (XOPENEX 9-04 Puffs. ity of HFA) 45 14:59: [place] mcg/actuati 31 Medical on inhaler Branch esomeprazol 2019-0 Yes 40mg Take 40 mg Univers e (NEXIUM) 9-04 by mouth ity o f 40 mg 14:59: daily with [place] capsule 31 breakfast. Medica l Branch albuterol 2020-0 Yes 1{ampul 1 Ampule. Univers (ACCUNEB) 9-04 e} ity of 0.63 mg/3 14:59: [place] mL 31 Medical nebulizer Branch solution levalbutero 2019-0 Yes 2{puff} Inhale 2 Univers l (XOPENEX 9-04 Puffs. ity of HFA) 45 14:59: [facility]/actuati 31 Medical on inhaler Branch dornase 2020-0 Yes [id number] 2.5mg Take 1 [place] alpha 8-27 Ampule by [place] (PULMOZYME) 00:00: nebulizati of 1 MG/ML 00 on two Medicin nebulizer times e solution daily. Diclofenac 2020-0 Yes 50mg Take 50 mg [facility] Potassium 8-27 by mouth Colleg e 50 MG PACK 00:00: daily as of 00 needed Medicin (headache) e . Do not exceed 2 doses per week. tramadol 2020-0 Yes [id number] 1{tbl} Take 1 Tab [facility] (ULTRAM) 50 8-27 by mouth 2 Co llege MG tablet 00:00: times of 00 daily as Medicin needed for e Pain (Chronic back pain). zolpidem 2020-0 Yes [id number] 10mg Take 1 Tab [facility] (AMBIEN) 10 8-27 by mouth [place] MG tablet 00:00: nightly as of 00 needed for Medicin Sleep. e insulin 2019-0 Yes INJECT 60 [facility] lispro 7-21 UNITS PER [place] (HUMALOG) 00:00: DAY VIA of 100 UNIT/ML 00 INSULIN Medic in injection PUMP e nortriptyli 2019-0 Yes TAKE 2 [facility] ne 7-10 CAPSULES [place] (PAMELOR) 00:00: BY MOUTH of 10 MG 00 EVERY Medicin capsule NIGHT e BETHKIS 300 2020-0 Yes [id number] 1{ampul 1 Ampule Jayesh MG/4ML NEBU 6-05 e} by [place] 00:00: Inhalation of 00 route two Medicin times e daily. Alternate 28 days on and 28 days off. Brand name medically necessary. Multiple 2020-0 Yes [id number] Take 1 [place] Vitamins-Mi 5-28 capsule by Co llege nerals (MVW 00:00: mouth 2 of COMPLETE 00 times Medicin FORMULATION daily e D3000) CAPS (with meals). duloxetine 2020-0 Yes 30mg Take 1 Cap [facility] (CYMBALTA) 3-23 by mouth Colle ge 30 MG 00:00: daily. of capsule 00 Medicin e ondansetron 2020-0 Yes [id number] TAKE 1 Jayesh (ZOFRAN) 4 3-16 TABLET BY [place] MG tablet 00:00: MOUTH of 00 EVERY 8 Medicin HOURS e NEEDED FOR NAUSEA diltiazem 2019-0 Yes 1{tbl} Take 1 Tab Jayesh 120 MG TABS 2-27 by mouth [facility] [place] 15:41: two times of 50 daily. Medicin e mirtazapine 2019-0 Yes [id number] 7.5mg Take 7.5 Jayesh (REMERON) 2-27 mg by [place] 7.5 MG 15:41: mouth of tablet 49 nightly. Medicin e Vitamin D, 2019-0 Yes [id number] TAKE 1 [facility] Ergocalcife 2-27 CAPSULE BY Co yaniv rol, 1.25 00:00: MOUTH of MG (25217 00 EVERY 7 Medicin [place]) CAPS DAYS e dornase 0 Yes [id number] 2.5mg Take 1 [place] alpha 2-25 Ampule by [place] (PULMOZYME) 00:00: nebulizati of 1 MG/ML 00 on two Medicin nebulizer times e solution daily. sodium Yes [id number] 4mL Take 1 [facility] chloride, 2-25 Ampule by [facility] Inhalant, 00:00: nebulizati of (HYPER-ELISSA) 00 on two Medici n 7 % times e nebulizer daily. solution albuterol Yes USE 1 VIAL [facility] (PROVENTIL) 2-14 VIA [place] (2.5 mg/3 00:00: NEBULIZER of mL) 0.083% 00 THREE Medicin nebulizer TIMES e solution DAILY NEEDED FOR SHORTNESS OF BREATH Elexacaf-Te 0 Yes [id number] Take 2 [facility] zacaf-Ivaca 2-13 tablets by [place] f&Ivacaf 00:00: mouth of (TRIKAFTA) 00 every Medicin 100-50-75 & morning e 150 MG TBPK AND 1 tablet at bedtime. Take 12 hours apart with fat containing food ciprofloxac 0 2020- No [id number] 750mg Take 1 Tab Jayesh in (CIPRO) 2-13 - by mouth [place] 750 MG 00:00: 05:59 two times of tablet 00 :00 daily for Medicin 14 days. e zolpidem 0 Yes [id number] 10mg Take 1 Tab [facility] (AMBIEN) 10 1-03 by mouth [place] MG tablet 00:00: nightly as of 00 needed for Medicin Sleep. e cetirizine, Yes [id number] 10mg Take 1 Tab Jayesh ZYRTEC, 10-27 by mouth [place] (ZYRTEC 00:00: daily. of ALLERGY) 10 00 Medicin MG tablet e azithromyci Yes [id number] 500mg Take 1 Tab [facility] n 10-27 by mouth [place] (ZITHROMAX) 00:00: every of 500 MG 00 Wednesday, Medicin tablet Wednesday, e Wednesday. predniSONE Yes [id number] 5mg Take 0.5 Jayesh (DELTASONE) - Tabs by Colle ge 10 MG 00:00: mouth of tablet 00 daily. Medicin e omeprazole 2018-10 Yes [id number] TAKE 1 [facility] (PRILOSEC) 2-30 CAPSULE BY Col lege 20 MG 00:00: MOUTH of capsule 00 TWICE Medicin DAILY e dronabinol 2018-10 Yes [id number] 2.5mg Take 1 Cap [facility] (MARINOL) 2-11 by mouth Colleg e 2.5 MG 00:00: two times of capsule 00 daily. Medicin e Glucose 2018-10 Yes Check [facility] Blood 2-04 glucose 5x College Strips 00:00: daily; Dx of (CONTOUR 00 E84.9 Medicin NEXT TEST) e Glucose 2018-10 Yes Check [facility] Blood 2-04 glucose 5x College Strips 00:00: daily; Dx of (CONTOUR 00 E84.9 Medicin NEXT TEST) e duloxetine 2018-10 Yes 30mg Take 1 Cap [facility] (CYMBALTA) 2-02 by mouth Colle ge 30 MG 00:00: daily. of capsule 00 Medicin e Cholecalcif 2018-10 Yes 2000U Take 2,000 [facility] gail, 1-27 Units by ity of Vitamin D3, 12:39: [place] (VITAMIN 02 Medical D3) 2,000 Branch unit tablet ergocalcife 2018-10 Yes [id number] Take Univ ers rol, 1-27 50,000 ity of vitamin d2, 12:39: [place] (CALCIFEROL 02 mouth. Medica l ) 50,000 Branch unit capsule Cholecalcif 2019-1 Yes 2000U Take 2,000 [facility] gail, 1-27 Units by ity of Vitamin D3, 12:39: mouth. [place] (VITAMIN 02 Medical D3) 2,000 Branch unit tablet ergocalcife 2018-10 Yes [id number] Take Univ ers rol, 1-27 50,000 ity of vitamin d2, 12:39: Units by [place] (CALCIFEROL 02 mouth. Medica l ) 50,000 Branch unit capsule insulin 2018-10 Yes USE 60 Jayesh lispro 1-18 UNITS PER College (HUMALOG) 00:00: DAY VIA of 100 UNIT/ML 00 INSULIN Medic in injection PUMP e mirtazapine 2018-10 Yes [id number] 7.5mg Take 7.5 [facility] (REMERON) 1-05 mg by College 7.5 MG 19:26: mouth of tablet 17 nightly. Medicin e diltiazem 2018-10 Yes 1{tbl} Take 1 Tab Jayesh 120 MG TABS 1-05 by mouth [place] 19:26: two times of 17 daily. Medicin e diltiazem 2018-10 Yes 1{tbl} Take 1 Tab [facility] 120 MG TABS 0-23 by mouth [place] 17:58: two times of 52 daily. Medicin e diltiazem 2018-10 Yes 1{tbl} Take 1 Tab [facility] 120 MG TABS 0-23 by mouth [place] 17:58: two times of 52 daily. Medicin e albuterol 2018-10 Yes USE 1 VIAL [facility] (PROVENTIL) 0-14 VIA College (2.5 mg/3 00:00: NEBULIZER of mL) 0.083% 00 THREE Medicin nebulizer TIMES e solution DAILY NEEDED FOR SHORTNESS OF BREATH albuterol 2018-10 Yes USE 1 VIAL [facility] (PROVENTIL) 0-14 VIA College (2.5 mg/3 00:00: NEBULIZER of mL) 0.083% 00 THREE Medicin nebulizer TIMES e solution DAILY NEEDED FOR SHORTNESS OF BREATH albuterol 2018-10 Yes USE 1 VIAL [facility] (PROVENTIL) 0-14 VIA [facility] (2.5 mg/3 00:00: NEBULIZER of mL) 0.083% 00 THREE Medicin nebulizer TIMES e solution DAILY NEEDED FOR SHORTNESS OF BREATH mirtazapine 2018-10 Yes [id number] 7.5mg Take 7.5 Jayesh (REMERON) 0-09 mg by College 7.5 MG 19:52: mouth of tablet 28 nightly. Medicin e diltiazem 2018-10 Yes 1{tbl} Take 1 Tab [facility] 120 MG TABS 0-09 by mouth [place] 19:52: two times of 28 daily. Medicin e mirtazapine 2018-10 Yes [id number] 7.5mg Take 7.5 Jayesh (REMERON) 0-09 mg by [place] 7.5 MG 19:52: mouth of tablet 28 nightly. Medicin e mirtazapine 2018-10 Yes [id number] 7.5mg Take 7.5 [facility] (REMERON) 0-09 mg by [place] 7.5 MG 19:52: mouth of tablet 28 nightly. Medicin e dronabinol 2018-10 Yes [id number] 2.5mg Take 1 Cap Jayesh (MARINOL) 0-09 by mouth Colleg e 2.5 MG 00:00: two times of capsule 00 daily. Medicin e dronabinol 2018-10 Yes [id number] 2.5mg Take 1 Cap [facility] (MARINOL) 0-09 by mouth Colleg e 2.5 MG 00:00: two times of capsule 00 daily. Medicin e Continuous 2018-10 Yes 1{each} 1 Each [facility] Blood Gluc 0-09 every 14 Colle ge Sensor 00:00: days. of (FREESTYLE 00 Medicin RENNY 14 e DAY SENSOR) MISC dronabinol 2018-10 Yes [id number] 2.5mg Take 1 Cap Jayesh (MARINOL) 0-09 by mouth Colleg e 2.5 MG 00:00: two times of capsule 00 daily. Medicin e Continuous 2018-10 Yes 1{each} 1 Each [facility] Blood Gluc 0-09 every 14 Colle ge Sensor 00:00: days. of (FREESTYLE 00 Medicin RENNY 14 e DAY SENSOR) MISC dronabinol 2018-10 Yes [id number] 2.5mg Take 1 Cap [facility] (MARINOL) 0-09 by mouth Colleg e 2.5 MG 00:00: two times of capsule 00 daily. Medicin e Continuous 2018-10 Yes 1{each} 1 [facility] Blood Gluc 0-09 every 14 Colle ge Sensor 00:00: days. of (FREESTYLE 00 Medicin RENNY 14 e DAY SENSOR) [facility] [place] Continuous 2018-10 Yes 1{each} 1 Each [facility] Blood Gluc 0-09 every 14 Colle ge Sensor 00:00: days. of (FREESTYLE 00 Medicin RENNY 14 e DAY SENSOR) [facility] [place] Continuous 2018-10 Yes 1{each} 1 Each [facility] Blood Gluc 0-09 every 14 Colle ge Sensor 00:00: days. of (FREESTYLE 00 Medicin RENNY 14 e DAY SENSOR) [facility] [place] levalbutero 2018-10 Yes [id number] Inhale 2 [facility] l tartrate 0-08 puffs in Colle ge (XOPENEX 00:00: am and pm. of HFA) 45 00 May take Medicin MCG/ACT an e AERO additional inhaler 2 puffs throughout day if needed. Cholecalcif 2018-10 Yes [id number] 1{capsu Take 1 [facility] gail 2000 0-08 le} capsule by [place] units TABS 00:00: mouth of 00 daily. Medicin e fluticasone 2018-10 Yes [id number] 2{spray 2 Sprays [facility] (FLONASE) 0-08 } by Each [place] 50 MCG/ACT 00:00: Nostril of nasal spray 00 route Medicin daily. e Glucagon, 2018-10 Yes [id number] 1{appli Inject 1 Jayesh rDNA, 0-08 cator} [employer] [facility] [employer] (GLUCAGON 00:00: as of EMERGENCY) 00 directed Medic in 1 MG KIT as needed. e levalbutero 2018-10 Yes [id number] Inhale 2 [facility] l tartrate 0-08 puffs in Colle ge (XOPENEX 00:00: am and pm. of HFA) 45 00 May take Medicin MCG/ACT an e AERO additional inhaler 2 puffs throughout day if needed. Cholecalcif 2018-10 Yes [id number] 1{capsu Take 1 Jayesh gail 2000 0-08 le} capsule by [place] units TABS 00:00: mouth of 00 daily. Medicin e fluticasone 2018-10 Yes [id number] 2{spray 2 Sprays [facility] (FLONASE) 0-08 } by Each College 50 MCG/ACT 00:00: Nostril of nasal spray 00 route Medicin daily. e Glucagon, 2018-10 Yes [id number] 1{appli Inject 1 Jayesh rDNA, 0-08 cator} [employer] (GLUCAGON 00:00: as of EMERGENCY) 00 directed Medic in 1 MG KIT as needed. e levalbutero 2018-10 Yes [id number] Inhale 2 Jayesh l tartrate 0-08 puffs in Colle ge (XOPENEX 00:00: am and pm. of HFA) 45 00 May take Medicin MCG/ACT an e AERO additional inhaler 2 puffs throughout day if needed. Cholecalcif 2018-10 Yes [id number] 1{capsu Take 1 Jayesh gail 2000 0-08 le} capsule by [place] units TABS 00:00: mouth of 00 daily. Medicin e fluticasone 2018-10 Yes [id number] 2{spray 2 Sprays Jayesh (FLONASE) 0-08 } by Each [place] 50 MCG/ACT 00:00: Nostril of nasal spray 00 route Medicin daily. e Glucagon, 2018-10 Yes [id number] 1{appli Inject 1 Jayesh rDNA, 0-08 cator} [employer] (GLUCAGON 00:00: as of EMERGENCY) 00 directed Medic in 1 MG KIT as needed. e levalbutero 2018-10 Yes [id number] Inhale 2 [facility] l tartrate 0-08 puffs in Colle ge (XOPENEX 00:00: am and pm. of HFA) 45 00 May take Medicin MCG/ACT an e AERO additional inhaler 2 puffs throughout day if needed. Cholecalcif 2018-10 Yes [id number] 1{capsu Take 1 Jayesh gail 2000 0-08 le} capsule by [place] units TABS 00:00: mouth of 00 daily. Medicin e fluticasone 2018-10 Yes [id number] 2{spray 2 Sprays Jayesh (FLONASE) 0-08 } by Each [facility] 50 MCG/ACT 00:00: Nostril of nasal spray 00 route Medicin daily. e Glucagon, 2018-10 Yes [id number] 1{appli Inject 1 [facility] rDNA, 0-08 cator} [employer] (GLUCAGON 00:00: as of EMERGENCY) 00 directed Medic in 1 MG KIT as needed. e levalbutero 2018-10 Yes [id number] Inhale 2 [facility] l tartrate 0-08 puffs in Colle ge (XOPENEX 00:00: am and pm. of HFA) 45 00 May take Medicin MCG/ACT an e AERO additional inhaler 2 puffs throughout day if needed. Cholecalcif 2018-10 Yes [id number] 1{capsu Take 1 [facility] gail 2000 0-08 le} capsule by [place] units TABS 00:00: mouth of 00 daily. Medicin e fluticasone 2018-10 Yes [id number] 2{spray 2 Sprays Jayesh (FLONASE) 0-08 } by Each [place] 50 MCG/ACT 00:00: Nostril of nasal spray 00 route Medicin daily. e Glucagon, 2018-10 Yes [id number] 1{appli Inject 1 [facility] rDNA, 0-08 cator} [employer] (GLUCAGON 00:00: as of EMERGENCY) 00 directed Medic in 1 MG KIT as needed. e Cholecalcif 2018-10 Yes [id number] Take 1 Jayesh gail 2000 0-08 capsule by [place] units TABS 00:00: mouth of 00 daily. Medicin e Glucagon, 2018-10 Yes [id number] 1{appli Inject 1 [facility] rDNA, 0-08 cator} [employer] (GLUCAGON 00:00: as of EMERGENCY) 00 directed Medic in 1 MG KIT as needed. e mirtazapine Yes [id number] 7.5mg Take 7.5 Jayesh (REMERON) 9-30 mg by [place] 7.5 MG 14:32: mouth of tablet 43 nightly. Medicin e diltiazem Yes 1{tbl} Take 1 Tab [facility] 120 MG TABS 9-30 by mouth [place] [place] 14:32: two times of 43 daily. Medicin e azithromyci Yes [id number] 500mg Take 1 Tab Jayesh n 9-25 by mouth [place] (ZITHROMAX) 00:00: every of 500 MG 00 Wednesday, Medicin tablet Wednesday, e Wednesday. ORKAMBI Yes [id number] TAKE 2 [place] 200-125 MG 9-25 TABLETS BY Col lege TABS 00:00: MOUTH of 00 TWICE Medicin DAILY e EVERY 12 HOURS WITH FAT-CONTAI THOMAS FOOD azithromyci 2019-0 Yes [id number] 500mg Take 1 Tab Jayesh n 9-25 by mouth College (ZITHROMAX) 00:00: every of 500 MG 00 Wednesday, Medicin tablet Wednesday, wednesday. ORKAMBI 2019-0 Yes [id number] TAKE 2 [place] 200-125 MG 9-25 TABLETS BY Col lege TABS 00:00: MOUTH of 00 TWICE Medicin DAILY e EVERY 12 HOURS WITH FAT-CONTAI THOMAS FOOD azithromyci 2018-0 Yes [id number] 500mg Take 1 Tab [facility] n 9-25 by mouth College (ZITHROMAX) 00:00: every of 500 MG 00 Wednesday, Medicin tablet Wednesday, wednesday. ORKAMBI 2019-0 Yes [id number] TAKE 2 [place] 200-125 MG 9-25 TABLETS BY Col lege TABS 00:00: MOUTH of 00 TWICE Medicin DAILY e EVERY 12 HOURS WITH FAT-CONTAI THOMAS FOOD azithromyci 2018-0 Yes [id number] 500mg Take 1 Tab Jayesh n 9-25 by mouth College (ZITHROMAX) 00:00: every of 500 MG 00 Wednesday, Medicin tablet Wednesday, e Wednesday. ORKAMBI 2019-0 Yes [id number] TAKE 2 [place] 200-125 MG 9-25 TABLETS BY Col lege TABS 00:00: MOUTH of 00 TWICE Medicin DAILY e EVERY 12 HOURS WITH FAT-CONTAI THOMAS FOOD azithromyci 2019-0 Yes [id number] 500mg Take 1 Tab [facility] n 9-25 by mouth College (ZITHROMAX) 00:00: every of 500 MG 00 Wednesday, Medicin tablet Wednesday, e Wednesday. ORKAMBI 2019-0 Yes [id number] TAKE 2 [place] 200-125 MG 9-25 TABLETS BY Col lege TABS 00:00: MOUTH of 00 TWICE Medicin DAILY e EVERY 12 HOURS WITH FAT-CONTAI THOMAS FOOD azithromyci 2019-0 Yes [id number] 500mg Take 1 Tab [facility] n 9-25 by mouth College (ZITHROMAX) 00:00: every of 500 MG 00 [place], Medicin tablet Wednesday, e Wednesday. Nutritional 2019-0 2020- No [id number] 1{bottl Take 1 [facility] Supplements 9-24 e} Bottle by Co llege (GLUCERNA 00:00: 04:59 mouth two of SHAKE) LIQD 00 :00 times Medicin daily for e 180 days. Nutritional 2019-0 2020- No [id number] 1{bottl Take 1 [facility] Supplements 9-24 e} Bottle by Co llege (GLUCERNA 00:00: 04:59 mouth two of SHAKE) LIQD 00 :00 times Medicin daily for e 180 days. Nutritional 2019-0 2020- No [id number] 1{bottl Take 1 [facility] Supplements 9-25 -24 e} Bottle by Co llege (GLUCERNA 00:00: 04:59 mouth two of SHAKE) LIQD 00 :00 times Medicin daily for e 180 days. Nutritional 2019-0 2020- No [id number] 1{bottl Take 1 [facility] Supplements 925 03-24 e} Bottle by Co llege (GLUCERNA 00:00: 04:59 mouth two of SHAKE) LIQD 00 :00 times Medicin daily for e 180 days. Nutritional 2019-0 2020- No [id number] 1{bottl Take 1 Jayesh Supplements 07-19 03-24 e} Bottle by Co llege (GLUCERNA 00:00: 04:59 mouth two of SHAKE) LIQD 00 :00 times Medicin daily for e 180 days. Nutritional 2019-0 2020- No [id number] 1{bottl Take 1 Jayesh Supplements 925 -24 e} Bottle by Co llege (GLUCERNA 00:00: 04:59 mouth two of SHAKE) LIQD 00 :00 times Medicin daily for e 180 days. Nutritional 2019-0 2020- No [id number] 1{bottl Take 1 Jayesh Supplements 9-25 03-24 e} Bottle by Co llege (GLUCERNA 00:00: 04:59 mouth two of SHAKE) LIQD 00 :00 times Medicin daily for e 180 days. mirtazapine 2019-0 Yes [id number] 7.5mg Take 7.5 [facility] (REMERON) 9-24 mg by College 7.5 MG 18:38: mouth of tablet 41 nightly. Medicin e diltiazem 2019-0 Yes 1{tbl} Take 1 Tab Jayesh 120 MG TABS 9-24 by mouth [place] [place] 18:38: two times of 41 daily. Medicin e Pancrelipas 2019-0 Yes [id number] TAKE 5 [facility] e, 9-24 CAPSULES College Lip-Prot-Am 00:00: BY MOUTH of yl, (CREON) 00 WITH Medicin [id number] MEALS, AND e units CPEP TAKE 2 CAPSULES BY MOUTH EVERY DAY WITH SNACKS Pancrelipas 2019-0 Yes [id number] TAKE 5 [facility] e, 9-24 CAPSULES College Lip-Prot-Am 00:00: BY MOUTH of yl, (CREON) 00 WITH Medicin [id number] MEALS, AND e units CPEP TAKE 2 CAPSULES BY MOUTH EVERY DAY WITH SNACKS Pancrelipas 2019-0 Yes [id number] TAKE 5 Jayesh e, 9-24 CAPSULES College Lip-Prot-Am 00:00: BY MOUTH of yl, (CREON) 00 WITH Medicin [id number] MEALS, AND e units CPEP TAKE 2 [place]ES BY MOUTH EVERY DAY WITH SNACKS Pancrelipas 2019-0 Yes [id number] TAKE 5 [facility] e, 9-24 CAPSULES College Lip-Prot-Am 00:00: BY MOUTH of yl, (CREON) 00 WITH Medicin [id number] MEALS, AND e units CPEP TAKE 2 CAPS[facility]ES BY MOUTH EVERY DAY WITH SNACKS Pancrelipas 2019-0 Yes [id number] TAKE 5 Jayesh e, 9-24 CAPSULES College Lip-Prot-Am 00:00: BY MOUTH of yl, (CREON) 00 WITH Medicin [id number] MEALS, AND e units CPEP TAKE 2 [place] BY MOUTH EVERY DAY WITH SNACKS Pancrelipas 2019-0 Yes [id number] TAKE 5 [facility] e, 9-24 CAPSULES College Lip-Prot-Am 00:00: BY MOUTH of yl, (CREON) 00 WITH Medicin [id number] MEALS, AND e units CPEP TAKE 2 CAPS[facility]ES BY MOUTH EVERY DAY WITH SNACKS Pancrelipas 2019-0 Yes [id number] TAKE 5 [facility] e, 9-24 CAPSULES College Lip-Prot-Am 00:00: BY MOUTH of yl, (CREON) 00 WITH Medicin [id number] MEALS, AND e units CPEP TAKE 2 [place] BY MOUTH EVERY DAY WITH SNACKS omeprazole 2019-0 Yes [id number] 20mg Take 1 Cap [facility] (PRILOSEC) 9-23 by mouth Colle ge 20 MG 00:00: two times of capsule 00 daily. Medicin e omeprazole 2019-0 Yes [id number] 20mg Take 1 Cap [facility] (PRILOSEC) 9-23 by mouth Colle ge 20 MG 00:00: two times of capsule 00 daily. Medicin e omeprazole 2018-0 Yes [id number] 20mg Take 1 Cap [facility] (PRILOSEC) 9-23 by mouth Colle ge 20 MG 00:00: two times of capsule 00 daily. Medicin e omeprazole 2018-0 Yes [id number] 20mg Take 1 Cap Jayesh (PRILOSEC) 9-23 by mouth Colle ge 20 MG 00:00: two times of capsule 00 daily. Medicin e omeprazole 2018- Yes [id number] 20mg Take 1 Cap [facility] (PRILOSEC) 9-23 by mouth Colle ge 20 MG 00:00: two times of capsule 00 daily. Medicin e omeprazole 2018-0 Yes [id number] 20mg Take 1 Cap [facility] (PRILOSEC) 9-23 by mouth Colle ge 20 MG 00:00: two times of capsule 00 daily. Medicin e esomeprazol 2019- No [id number] 40mg Take 1 Cap Jayesh e (NEXIUM) 07-12 by mouth [facility] 40 MG 00:00: 00:00 daily. of capsule 00 :00 Medicin e guaiFENesin 2019- No [id number] Take 5 mls [facility] -Codeine 07-07 at night Colleg e (CHERATUSSI 00:00: 04:59 as needed of N AC) 00 :00 for cough. Medicin 100-10 e MG/5ML liquid predniSONE 2018-0 Yes [id number] 10mg Take 1 Tab [facility] (DELTASONE) 9-04 by mouth [facility] 10 MG 00:00: daily. of tablet 00 Medicin e predniSONE Yes [id number] 10mg Take 1 Tab Jayesh (DELTASONE) 9-04 by mouth [facility] 10 MG 00:00: daily. of tablet 00 Medicin e predniSONE Yes [id number] 10mg Take 1 Tab Jayesh (DELTASONE) 9-04 by mouth [facility] 10 MG 00:00: daily. of tablet 00 Medicin e predniSONE Yes [id number] 10mg Take 1 Tab Jayesh (DELTASONE) 9-04 by mouth [facility] 10 MG 00:00: daily. of tablet 00 Medicin e predniSONE Yes [id number] 10mg Take 1 Tab [facility] (DELTASONE) 9-04 by mouth [facility] 10 MG 00:00: daily. of tablet 00 Medicin e predniSONE Yes [id number] 10mg Take 1 Tab [facility] (DELTASONE) 9-04 by mouth [facility] 10 MG 00:00: daily. of tablet 00 Medicin e albuterol Yes USE 1 VIAL [facility] (PROVENTIL) 06-20 VIA [employer] (2.5 mg/3 00:00: NEBULIZER of mL) 0.083% 00 THREE Medicin nebulizer TIMES e solution DAILY NEEDED FOR SHORTNESS OF BREATH albuterol Yes USE 1 VIAL [facility] (PROVENTIL) 06-20 VIA [employer] (2.5 mg/3 00:00: NEBULIZER of mL) 0.083% 00 THREE Medicin nebulizer TIMES e solution DAILY NEEDED FOR SHORTNESS OF BREATH albuterol Yes USE 1 VIAL [facility] (PROVENTIL) 06-20 VIA [employer] (2.5 mg/3 00:00: NEBULIZER of mL) 0.083% 00 THREE Medicin nebulizer TIMES e solution DAILY NEEDED FOR SHORTNESS OF BREATH lidocaine Yes [id number] 1{patch Place 1 [facility] (LIDODERM) 8-21 } Patch onto Col lege 5 % patch 00:00: the skin of 00 every 24 Medicin hours. e lidocaine Yes [id number] 1{patch Place 1 [facility] (LIDODERM) 8-21 } Patch onto Col lege 5 % patch 00:00: the skin of 00 every 24 Medicin hours. e lidocaine Yes [id number] 1{patch Place 1 Jayesh (LIDODERM) 8-21 } Patch onto Col lege 5 % patch 00:00: the skin of 00 every 24 Medicin hours. e sertraline Yes [id number] 25mg Take 1 Tab [facility] (ZOLOFT) 25 8-13 by mouth [facility] MG tablet 00:00: daily. of Medicin e sertraline 2019-0 Yes [id number] 25mg Take 1 Tab [facility] (ZOLOFT) 25 8-13 by mouth [facility] MG tablet 00:00: daily. of Medicin e sertraline 2019-0 Yes [id number] 25mg Take 1 Tab Jayesh (ZOLOFT) 25 8-13 by mouth [facility] MG tablet 00:00: daily. of Medicin e sertraline 2019-0 Yes [id number] 25mg Take 1 Tab [facility] (ZOLOFT) 25 8-13 by mouth [facility] MG tablet 00:00: daily. of Medicin e sertraline 2019-0 Yes [id number] 25mg Take 1 Tab [facility] (ZOLOFT) 25 8-13 by mouth [facility] MG tablet 00:00: daily. of Medicin e sertraline 2019-0 Yes [id number] 25mg Take 1 Tab [facility] (ZOLOFT) 25 8-13 by mouth [facility] MG tablet 00:00: daily. of Medicin e dornase 2019-0 Yes [id number] 2.5mg Take 1 [place] alpha 8-12 Ampule by [place] (PULTrunity) 00:00: nebulizati of 1 MG/ML 00 on two Medicin nebulizer times e solution daily. Cholecalcif 2019-0 Yes [id number] 1{capsu Take 1 [facility] gail 2000 8-12 le} capsule by [facility] [employer] TABS 00:00: mouth of 00 daily. Medicin e dornase 2019-0 Yes [id number] 2.5mg Take 1 [facility] [place] alpha 8-12 Ampule by [place] (PULMOZYME) 00:00: nebulizati of 1 MG/ML 00 on two Medicin nebulizer times e solution daily. Cholecalcif 2019-0 Yes [id number] 1{capsu Take 1 Jayesh gail 2000 8-12 le} capsule by [facility] [employer] TABS 00:00: mouth of 00 daily. Medicin e dornase 2019-0 Yes [id number] 2.5mg Take 1 [place] alpha 8-12 Ampule by [place] (PULMOZYME) 00:00: nebulizati of 1 MG/ML 00 on two Medicin nebulizer times e solution daily. dornase Yes [id number] 2.5mg Take 1 [place] alpha 8-12 Ampule by [place] (PULMOZYME) 00:00: nebulizati of 1 MG/ML 00 on two Medicin nebulizer times e solution daily. dornase Yes [id number] 2.5mg Take 1 [place] alpha 8-12 Ampule by [place] (PULMOZYME) 00:00: nebulizati of 1 MG/ML 00 on two Medicin nebulizer times e solution daily. dornase Yes [id number] 2.5mg Take 1 [place] alpha 8-12 Ampule by [place] (PULMOZYME) 00:00: nebulizati of 1 MG/ML 00 on two Medicin nebulizer times e solution daily. dronabinol Yes [id number] 2.5mg Take 1 Cap Jay[facility] (MARINOL) 809 by mouth [facility] e 2.5 MG 00:00: two times of capsule 00 daily. Medicin e dronabinol Yes [id number] 2.5mg Take 1 Cap Jayesh (MARINOL) 809 by mouth [facility] e 2.5 MG 00:00: two times of capsule 00 daily. Medicin e mirtazapine Yes [id number] 7.5mg Take 7.5 Jayesh (REMERON) 7-26 mg by [place] 7.5 MG 16:17: mouth of tablet 13 nightly. Medicin e sertraline Yes 25mg Take 25 mg [facility] (ZOLOFT) 25 7-26 by mouth [facility] MG tablet 16:17: daily. of 13 Medicin e diltiazem Yes 1{tbl} Take 1 Tab [facility] 120 MG TABS 7-26 by mouth [facility] 16:17: daily. of 13 Medicin e Lumacaftor- Yes [id number] 2{capsu Take 2 [facility] Ivacaftor 05-15 le} Caps by [place] (ORKAMBI) 00:00: mouth of 200-125 MG 00 every 12 Medic in TABS hours. e Lumacaftor- 2019- No [id number] 2{capsu Take 2 [facility] Ivacaftor 7-22 09-23 le} Caps by [facility] (ORKAMBI) 00:00: 00:00 mouth of 200-125 MG 00 :00 every 12 Medic in TABS hours. e albuterol Yes USE 1 VIAL [facility] (PROVENTIL) -18 VIA [place] (2.5 mg/3 00:00: NEBULIZER of mL) 0.083% 00 THREE Medicin nebulizer TIMES e solution DAILY NEEDED FOR SHORTNESS OF BREATH nortriptyli Yes 20mg Take 2 [facility] or ne 7-16 Caps by [place] (PAMELOR) 00:00: mouth of 10 MG 00 nightly. Medicin capsule e nortriptyli 0 Yes 20mg Take 2 [facility] ne 7-16 Caps by [place] (PAMELOR) 00:00: mouth of 10 MG 00 nightly. Medicin capsule e nortriptyli Yes 20mg Take 2 [facility] ne 7-16 Caps by [place] (PAMELOR) 00:00: mouth of 10 MG 00 nightly. Medicin capsule e nortriptyli 0 Yes 20mg Take 2 [facility] ne 7-16 Caps by [place] (PAMELOR) 00:00: mouth of 10 MG 00 nightly. Medicin capsule e nortriptyli 0 Yes 20mg Take 2 [facility] ne 7-16 Caps by [place] (PAMELOR) 00:00: mouth of 10 MG 00 nightly. Medicin capsule e nortriptyli 2019- No 20mg Take 2 [place] ne 7-16 10-31 Caps by [place] (PAMELOR) 00:00: 00:00 mouth of 10 MG 00 :00 nightly. Medicin capsule e tramadol Yes [id number] 50mg Take 1 Tab [facility] (ULTRAM) 50 7-15 by mouth [facility] MG tablet 00:00: Every 6 of 00 hours. Medicin e ondansetron Yes [id number] 4mg Take 1 Tab Jayesh (ZOFRAN) 4 7-15 by mouth [facility]le [facility] MG tablet 00:00: every 8 of 00 hours as Medicin needed for e Nausea. cetirizine, 2019- Yes [id number] 10mg Take 1 Tab [facility] ZYRTEC, 7-15 by mouth College (ZYRTEC 00:00: daily. of ALLERGY) 10 00 Medicin MG tablet e tramadol 2018- Yes [id number] 50mg Take 1 Tab [facility] (ULTRAM) 50 7-15 by mouth [facility] MG tablet 00:00: Every 6 of 00 hours. Medicin e ondansetron 2018-0 Yes [id number] 4mg Take 1 Tab Jayesh (ZOFRAN) 4 7-15 by mouth [facility]le [employer] MG tablet 00:00: every 8 of 00 hours as Medicin needed for e Nausea. cetirizine, 2019-0 Yes [id number] 10mg Take 1 Tab Jayesh ZYRTEC, 7-15 by mouth College (ZYRTEC 00:00: daily. of ALLERGY) 10 00 Medicin MG tablet e tramadol 2018- Yes [id number] 50mg Take 1 Tab Jayesh (ULTRAM) 50 7-15 by mouth [facility] MG tablet 00:00: Every 6 of 00 hours. Medicin e ondansetron 2018- Yes [id number] 4mg Take 1 Tab Jayesh (ZOFRAN) 4 7-15 by mouth [facility]le [employer] MG tablet 00:00: every 8 of 00 hours as Medicin needed for e Nausea. cetirizine, 2018- Yes [id number] 10mg Take 1 Tab [facility] ZYRTEC, 7-15 by mouth College (ZYRTEC 00:00: daily. of ALLERGY) 10 00 Medicin MG tablet e tramadol 2018- Yes [id number] 50mg Take 1 Tab [facility] (ULTRAM) 50 7-15 by mouth [facility] MG tablet 00:00: Every 6 of 00 hours. Medicin e ondansetron 2018- Yes [id number] 4mg Take 1 Tab Jayesh (ZOFRAN) 4 7-15 by mouth [facility]le [employer] MG tablet 00:00: every 8 of 00 hours as Medicin needed for e Nausea. cetirizine, 2018-0 Yes [id number] 10mg Take 1 Tab [facility] ZYRTEC, 7-15 by mouth [employer] (ZYRTEC 00:00: daily. of ALLERGY) 10 00 Medicin MG tablet e tramadol 2018- Yes [id number] 50mg Take 1 Tab [facility] (ULTRAM) 50 7-15 by mouth [facility] MG tablet 00:00: Every 6 of 00 hours. Medicin e ondansetron Yes [id number] 4mg Take 1 Tab [facility] (ZOFRAN) 4 7-15 by mouth Colle ge MG tablet 00:00: every 8 of 00 hours as Medicin needed for e Nausea. cetirizine, Yes [id number] 10mg Take 1 Tab Jayesh ZYRTEC, 7-15 by mouth College (ZYRTEC 00:00: daily. of ALLERGY) 10 00 Medicin MG tablet e tramadol Yes [id number] 50mg Take 1 Tab Jayesh (ULTRAM) 50 7-15 by mouth [facility] MG tablet 00:00: Every 6 of 00 hours. Medicin e ondansetron Yes [id number] 4mg Take 1 Tab Jayesh (ZOFRAN) 4 7-15 by mouth [facility]le [employer] MG tablet 00:00: every 8 of 00 hours as Medicin needed for e Nausea. cetirizine, Yes [id number] 10mg Take 1 Tab [facility] ZYRTEC, 7-15 by mouth College (ZYRTEC 00:00: daily. of ALLERGY) 10 00 Medicin MG tablet e tramadol Yes [id number] 50mg Take 1 Tab [facility] (ULTRAM) 50 7-15 by mouth [facility] MG tablet 00:00: Every 6 of 00 hours. Medicin e ondansetron Yes [id number] 4mg Take 1 Tab Jayesh (ZOFRAN) 4 7-15 by mouth [facility]le [employer] MG tablet 00:00: every 8 of 00 hours as Medicin needed for e Nausea. Cholecalcif 2018- Yes [id number] 1{capsu Take 1 [facility] gail 2000 7-15 le} capsule by [place] units TABS 00:00: mouth of 00 daily. Medicin e tramadol Yes [id number] 50mg Take 1 Tab [facility] (ULTRAM) 50 7-15 by mouth [facility] MG tablet 00:00: Every 6 of 00 hours. Medicin e ondansetron 2018- Yes [id number] 4mg Take 1 Tab Jayesh (ZOFRAN) 4 7-15 by mouth [facility]le [employer] MG tablet 00:00: every 8 of 00 hours as Medicin needed for e Nausea. cetirizine, Yes [id number] 10mg Take 1 Tab [facility] ZYRTEC, 7-15 by mouth [place] (ZYRTEC 00:00: daily. of ALLERGY) 10 00 Medicin MG tablet e voriconazol 2019- No [id number] 200mg Take 1 Tab [facility] e (VFEND) 7-15 07-30 by mouth [facility]le [facility] 200 MG 00:00: 00:00 two times of tablet 00 :00 daily. Medicin e Nutritional 2020- No [id number] 1{bottl Take 1 Jayesh Supplements 04-28 01-02 e} Bottle by [employer]lege (GLUCERNA 00:00: 05:59 mouth 3 of SHAKE) LIQD 00 :00 times Medicin daily for e 180 days. Nutritional 2019- No [id number] 1{bottl Take 1 Jayesh Supplements 04-28 09-25 e} Bottle by [employer] [facility] (GLUCERNA 00:00: 00:00 mouth 3 of SHAKE) LIQD 00 :00 times Medicin daily for e 180 days. Multiple Yes TAKE 1 [facility] Vitamins-Mi 6-27 CAPSULE BY [employer] nerals (MVW 00:00: MOUTH 2 of COMPLETE 00 TIMES Medicin FORMULATION DAILY WITH e D3000) CAPS MEALS FOR 180 DAYS Multiple Yes TAKE 1 Jayesh Vitamins-Mi 6-27 CAPSULE BY [employer] n[employer] (MVW 00:00: MOUTH 2 of COMPLETE 00 TIMES Medicin FORMULATION DAILY WITH e D3000) CAPS MEALS FOR 180 DAYS Multiple Yes TAKE 1 [facility] Vitamins-Mi 6-27 CAPSULE BY [employer] n[employer] (MVW 00:00: MOUTH 2 of COMPLETE 00 TIMES Medicin FORMULATION DAILY WITH e D3000) CAPS MEALS FOR 180 DAYS Multiple Yes TAKE 1 [facility] Vitamins-Mi 6-27 CAPSULE BY [employer] [facility] (MVW 00:00: MOUTH 2 of COMPLETE 00 TIMES Medicin FORMULATION DAILY WITH e D3000) CAPS MEALS FOR 180 DAYS Multiple 2018- Yes TAKE 1 Jayesh Vitamins-Mi 6-27 CAPSULE BY [employer] [facility] (MVW 00:00: MOUTH 2 of COMPLETE 00 TIMES Medicin FORMULATION DAILY WITH e D3000) CAPS MEALS FOR 180 DAYS Multiple 2018- Yes TAKE 1 [facility] Vitamins-Mi 6-27 CAPSULE BY [employer] [facility] (MVW 00:00: MOUTH 2 of COMPLETE 00 TIMES Medicin FORMULATION DAILY WITH e D3000) CAPS MEALS FOR 180 DAYS Multiple 2019-0 Yes TAKE 1 Jayesh Vitamins-Mi 6-27 CAPSULE BY [employer] [facility] (MVW 00:00: MOUTH 2 of COMPLETE 00 TIMES Medicin FORMULATION DAILY WITH e D3000) CAPS MEALS FOR 180 DAYS Multiple 2019-0 Yes TAKE 1 Jayesh Vitamins-Mi 6-27 CAPSULE BY [employer] [facility] (MVW 00:00: MOUTH 2 of COMPLETE 00 TIMES Medicin FORMULATION DAILY WITH e D3000) CAPS MEALS FOR 180 DAYS [facility] 300 2018- Yes [id number] 1{ampul 1 Ampule [facility] MG/4ML NEBU 6-26 e} by College 00:00: Inhalation of 00 route two Medicin times e daily. Alternate 28 days on and 28 days off. Brand name medically necessary. [facility] 300 Yes [id number] 1{ampul 1 Ampule [facility] MG/4ML NEBU 6-26 e} by [place] 00:00: Inhalation of 00 route two Medicin times e daily. Alternate 28 days on and 28 days off. Brand name medically necessary. [facility] 300 Yes [id number] 1{ampul 1 Ampule [facility] MG/4ML NEBU 6-26 e} by [place] 00:00: Inhalation of 00 route two Medicin times e daily. Alternate 28 days on and 28 days off. Brand name medically necessary. [facility] 300 Yes [id number] 1{ampul 1 Ampule Jayesh MG/4ML NEBU 6-26 e} by [place] 00:00: Inhalation of 00 route two Medicin times e daily. Alternate 28 days on and 28 days off. Brand name medically necessary. [facility] 300 Yes [id number] 1{ampul 1 Ampule [facility] MG/4ML NEBU 6-26 e} by [place] 00:00: Inhalation of 00 route two Medicin times e daily. Alternate 28 days on and 28 days off. Brand name medically necessary. [facility] 300 2018- Yes [id number] 1{ampul 1 Ampule [facility] MG/4ML NEBU 6-26 e} by [place] 00:00: Inhalation of 00 route two Medicin times e daily. Alternate 28 days on and 28 days off. Brand name medically necessary. [place] [address] 2018-0 Yes [id number] 1{ampul 1 Ampule [facility] MG/4ML NEBU 6-26 e} by College 00:00: Inhalation of 00 route two Medicin times e daily. Alternate 28 days on and 28 days off. Brand name medically necessary. [facility] 300 2018-0 Yes [id number] 1{ampul 1 Ampule [facility] MG/4ML NEBU 6-26 e} by College 00:00: Inhalation of 00 route two Medicin times e daily. Alternate 28 days on and 28 days off. Brand name medically necessary. esomeprazol 2018- Yes [id number] 40mg Take 1 Cap Jayesh e (NEXIUM) 6-05 by mouth [facility]le [facility] 40 MG 00:00: daily. of capsule 00 Medicin e sodium Yes [id number] 4mL Take 1 [facility] chloride, 6-03 Ampule by [facility] [employer] Inhalant, 00:00: nebulizati of (HYPER-ELISSA) 00 on two Medici n 7 % times e nebulizer daily. solution sodium Yes [id number] 4mL Take 1 [facility] chloride, 6-03 Ampule by [facility] [employer] Inhalant, 00:00: nebulizati of (HYPER-ELISSA) 00 on two Medici n 7 % times e nebulizer daily. solution sodium Yes [id number] 4mL Take 1 [facility] chloride, 6-03 Ampule by [facility] [employer] Inhalant, 00:00: nebulizati of (HYPER-ELISSA) 00 on two Medici n 7 % times e nebulizer daily. solution sodium Yes [id number] 4mL Take 1 [facility] chloride, 6-03 Ampule by [facility] [employer] Inhalant, 00:00: nebulizati of (HYPER-ELISSA) 00 on two Medici n 7 % times e nebulizer daily. solution sodium Yes [id number] 4mL Take 1 [facility] chloride, 6-03 Ampule by [facility] [employer] Inhalant, 00:00: nebulizati of (HYPER-ELISSA) 00 on two Medici n 7 % times e nebulizer daily. solution sodium Yes [id number] 4mL Take 1 [facility] chloride, 6-03 Ampule by [facility] [employer] Inhalant, 00:00: nebulizati of (HYPER-ELISSA) 00 on two Medici n 7 % times e nebulizer daily. solution sodium 2018- Yes [id number] 4mL Take 1 [facility] chloride, 6-03 Ampule by [facility] Inhalant, 00:00: nebulizati of (HYPER-ELISSA) 00 on two Medici n 7 % times e nebulizer daily. solution Vitamin D, 2019 Yes [id number] TAKE 1 Jayesh Ergocalcife 5-28 CAPSULE BY [facility], 00:00: MOUTH of units CAPS 00 EVERY 7 Medici n DAYS e Vitamin D, 2019- Yes [id number] TAKE 1 [facility] Ergocalcife 5-28 CAPSULE BY De yaniv vang, 00:00: MOUTH of units CAPS 00 EVERY 7 Medici n DAYS e Vitamin D, Yes [id number] TAKE 1 [facility] Ergocalcife 5-28 CAPSULE BY De yaniv vang, 00:00: MOUTH of units CAPS 00 EVERY 7 Medici n DAYS e Vitamin D, Yes [id number] TAKE 1 [facility] Ergocalcife 5-28 CAPSULE BY De yaniv vang, 00:00: MOUTH of units CAPS 00 EVERY 7 Medici n DAYS e Vitamin D, 2018- Yes [id number] TAKE 1 [facility] Ergocalcife 5-28 CAPSULE BY De [facility] vang, 00:00: MOUTH of units CAPS 00 EVERY 7 Medici n DAYS e Vitamin D, 2018-0 Yes [id number] TAKE 1 [facility] Ergocalcife 5-28 CAPSULE BY De [facility] vang, 00:00: MOUTH of units CAPS 00 EVERY 7 Medici n DAYS e Vitamin D, 2018- Yes [id number] TAKE 1 Jayesh Ergocalcife 5-28 CAPSULE BY [facility] vang, 00:00: MOUTH of units CAPS 00 EVERY 7 Medici n DAYS e Vitamin D, 2018- 2020- No [id number] TAKE 1 Jayesh Ergocalcife 5-28 02-27 CAPSULE BY [facility] vang, 00:00: 00:00 MOUTH of units CAPS 00 :00 EVERY 7 Medici n DAYS e insulin 2018- Yes Use 60 [facility] lispro 4-10 units per College (HUMALOG) 00:00: day via of 100 UNIT/ML 00 insulin Medic in injection pump. e insulin Yes Use 60 Jayesh lispro 4-10 units per College (HUMALOG) 00:00: day via of 100 UNIT/ML 00 insulin Medic in injection pump. e insulin Yes Use 60 Jayesh lispro 4-10 units per College (HUMALOG) 00:00: day via of 100 UNIT/ML 00 insulin Medic in injection pump. e insulin Yes Use 60 Jayesh lispro 4-10 units per College (HUMALOG) 00:00: day via of 100 UNIT/ML 00 insulin Medic in injection pump. e insulin Yes Use 60 [facility] lispro 4-10 units per College (HUMALOG) 00:00: day via of 100 UNIT/ML 00 insulin Medic in injection pump. e insulin Yes Use 60 [facility] lispro 4-10 units per College (HUMALOG) 00:00: day via of 100 UNIT/ML 00 insulin Medic in injection pump. e insulin Yes Use 60 [facility] lispro 4-10 units per College (HUMALOG) 00:00: day via of 100 UNIT/ML 00 insulin Medic in injection pump. e dornase Yes [id number] 2.5mg Take 1 [place] alpha 3-08 Ampule by [place] (PULMOZYME) 00:00: nebulizati of 1 MG/ML 00 on two Medicin nebulizer times e solution daily. Pancrelipas Yes [id number] TAKE 5 [facility] e, 3-08 CAPSULES [place] Lip-Prot-Am 00:00: BY MOUTH of yl, (CREON) 00 WITH Medicin [id number] MEALS, AND e units CPEP TAKE 2 CAPSULES BY MOUTH EVERY DAY WITH SNACKS Pancrelipas 2019- No [id number] TAKE 5 [facility] e, 3-08 09-24 CAPSULES [place] Lip-Prot-Am 00:00: 00:00 BY MOUTH o f yl, (CREON) 00 :00 WITH Medicin [id number] MEALS, AND e units CPEP TAKE 2 CAPSULES BY MOUTH EVERY DAY WITH SNACKS zolpidem Yes [id number] 10mg Take 1 Tab Jayesh (AMBIEN) 10 2-22 by mouth [facility] MG tablet 00:00: nightly as of 00 needed for Medicin Sleep. e zolpidem Yes [id number] 10mg Take 1 Tab Jayesh (AMBIEN) 10 2-22 by mouth [place] MG tablet 00:00: nightly as of 00 needed for Medicin Sleep. e zolpidem 2019-0 Yes [id number] 10mg Take 1 Tab Jayesh (AMBIEN) 10 2-22 by mouth [place] MG tablet 00:00: nightly as of 00 needed for Medicin Sleep. e zolpidem 2019-0 Yes [id number] 10mg Take 1 Tab Jayesh (AMBIEN) 10 2-22 by mouth [place] MG tablet 00:00: nightly as of 00 needed for Medicin Sleep. e zolpidem 2019-0 Yes [id number] 10mg Take 1 Tab [facility] (AMBIEN) 10 2-22 by mouth [place] MG tablet 00:00: nightly as of 00 needed for Medicin Sleep. e zolpidem 2019-0 Yes [id number] 10mg Take 1 Tab Jayesh (AMBIEN) 10 2-22 by mouth [place] [facility] MG tablet 00:00: nightly as of 00 needed for Medicin Sleep. e zolpidem 2019-0 Yes [id number] 10mg Take 1 Tab [facility] (AMBIEN) 10 2-22 by mouth [place] MG tablet 00:00: nightly as of 00 needed for Medicin Sleep. e Glucose 2019-0 Yes Check [facility] Blood 2-07 glucose 5x College Strips 00:00: daily; Dx of (CONTOUR 00 E84.9 Medicin NEXT TEST) e Glucose 2019-0 Yes Check [facility] Blood 2-07 glucose 5x College Strips 00:00: daily; Dx of (CONTOUR 00 E84.9 Medicin NEXT TEST) e Glucose 2019-0 Yes Check Jayesh Blood 2-07 glucose 5x College Strips 00:00: daily; Dx of (CONTOUR 00 E84.9 Medicin NEXT TEST) e Glucose 2019-0 Yes Check [facility] Blood 2-07 glucose 5x College Strips 00:00: daily; Dx of (CONTOUR 00 E84.9 Medicin NEXT TEST) e Glucose 2019-0 Yes Check [facility] Blood 2-07 glucose 5x College Strips 00:00: daily; Dx of (CONTOUR 00 E84.9 Medicin NEXT TEST) e Glucose 2019-0 Yes Check [facility] Blood 2-07 glucose 5x College Strips 00:00: daily; Dx of (CONTOUR 00 E84.9 Medicin NEXT TEST) e Glucose 2018- Yes Check [facility] Blood 2-07 glucose 5x College Strips 00:00: daily; Dx of (CONTOUR 00 E84.9 Medicin NEXT TEST) e Blood 2018- Yes Check [facility] Glucose 2-05 glucose 5x Colleg e Monitoring 00:00: daily; Dx of Suppl (ONE 00 E84.9 Medicin TOUCH ULTRA e MINI) w/Device KIT Blood Yes Check [facility] Glucose 2-05 glucose 5x Colleg e Monitoring 00:00: daily; Dx of Suppl (ONE 00 E84.9 Medicin TOUCH ULTRA e MINI) w/Device KIT Blood Yes Check Jayesh Glucose 2-05 glucose 5x Colleg e Monitoring 00:00: daily; Dx of Suppl (ONE 00 E84.9 Medicin TOUCH ULTRA e MINI) w/Device KIT Blood Yes Check Jayesh Glucose 2-05 glucose 5x Colleg e Monitoring 00:00: daily; Dx of Suppl (ONE 00 E84.9 Medicin TOUCH ULTRA e MINI) w/Device KIT Blood Yes Check [facility] Glucose 2-05 glucose 5x Colleg e Monitoring 00:00: daily; Dx of Suppl (ONE 00 E84.9 Medicin TOUCH ULTRA e MINI) w/Device KIT Blood Yes Check [facility] Glucose 2-05 glucose 5x Colleg e Monitoring 00:00: daily; Dx of Suppl (ONE 00 E84.9 Medicin TOUCH ULTRA e MINI) w/Device KIT Blood Yes Check Jayesh Glucose 2-05 glucose 5x Colleg e Monitoring 00:00: daily; Dx of Suppl (ONE 00 E84.9 Medicin TOUCH ULTRA e MINI) w/Device KIT Blood Yes Check [facility] Glucose 2-05 glucose 5x Colleg e Monitoring 00:00: daily; Dx of Suppl (ONE 00 E84.9 Medicin TOUCH ULTRA e MINI) w/Device KIT Blood Yes Check Jayesh Glucose 2-05 glucose 5x Colleg e Monitoring 00:00: daily; Dx of Suppl (ONE 00 E84.9 Medicin TOUCH ULTRA e MINI) w/Device KIT Glucagon, 2018- Yes [id number] 1{appli Inject 1 [facility] rDNA, 2-24 cator} [facility] [employer] (GLUCAGON 00:00: as of EMERGENCY) 00 directed Medic in 1 MG KIT as needed. e Glucagon, 2017-10 Yes [id number] 1{appli Inject 1 [facility] rDNA, 2-24 cator} [employer] (GLUCAGON 00:00: as of EMERGENCY) 00 directed Medic in 1 MG KIT as needed. e Glucagon, 2017-10 Yes [id number] 1{appli Inject 1 Jayesh rDNA, 2-24 cator} [employer] (GLUCAGON 00:00: as of EMERGENCY) 00 directed Medic in 1 MG KIT as needed. e Insulin 2017-10 Yes [id number] Use as [facility] Syringe-Nee 2-21 directed. Col lege dle U-100 00:00: of 30G X 5/16" 00 Medicin 0.5 ML MISC e Insulin 2017-10 Yes [id number] Use [facility] Syringes, 2-21 syringe College Disposable, 00:00: every time of U-100 0.3 00 need to Medicin ML MISC inject e insulin Insulin 2017-10 Yes [id number] Use as [facility] Syringe-Nee 2-21 directed. Col lege dle U-100 00:00: of 30G X 5/16" 00 Medicin 0.5 ML MISC e Insulin 2017-10 Yes [id number] Use [facility] Syringes, 2-21 syringe College Disposable, 00:00: every time of U-100 0.3 00 need to Medicin ML MISC inject e insulin Insulin 2017-10 Yes [id number] Use as [facility] Syringe-Nee 2-21 directed. Col lege dle U-100 00:00: of 30G X 5/16" 00 Medicin 0.5 ML MISC e Insulin 2017-10 Yes [id number] Use [facility] Syringes, 2-21 syringe College Disposable, 00:00: every time of U-100 0.3 00 need to Medicin ML MISC inject e insulin Insulin 2017-10 Yes [id number] Use as [facility] Syringe-Nee 2-21 directed. Col lege dle U-100 00:00: of 30G X 5/16" 00 Medicin 0.5 ML MISC e Insulin 2017-10 Yes [id number] Use [facility] Syringes, 2-21 syringe College Disposable, 00:00: every time of U-100 0.3 00 need to Medicin ML MISC inject e insulin Insulin 2017-10 Yes [id number] Use as [facility] Syringe-Nee 2-21 directed. Col lege dle U-100 00:00: of 30G X 5/16" 00 Medicin 0.5 ML MISC e Insulin 2017-10 Yes [id number] Use [facility] Syringes, 2-21 syringe College Disposable, 00:00: every time of U-100 0.3 00 need to Medicin ML MISC inject e insulin Insulin 2017-10 Yes [id number] Use as [facility] Syringe-Nee 2-21 directed. Col lege dle U-100 00:00: of 30G X 5/16" 00 Medicin 0.5 ML MISC e Insulin 2017-10 Yes [id number] Use [facility] Syringes, 2-21 syringe College Disposable, 00:00: every time of U-100 0.3 00 need to Medicin ML MISC inject e insulin Insulin 2017-10 Yes [id number] Use as [facility] Syringe-Nee 221 directed. Col lege dle U-100 00:00: of 30G X 5/16" 00 Medicin 0.5 ML MISC e Insulin 2017-10 Yes [id number] Use [facility] Syringes, 2-21 syringe College Disposable, 00:00: every time of U-100 0.3 00 need to Medicin ML MISC inject e insulin ACCU-CHEK Yes [id number] 1{each} 1 Each 6 Jayesh FASTCLIX 7-23 times College LANCETS 00:00: daily. of MISC 00 Check 6 Medicin times per e day Insulin Pen Yes [id number] Use as [facility] Needle (BD 7-23 directed Colle ge PEN NEEDLE 00:00: to inject of SAIRA U/F) 00 7 times Medicin 32G X 4 MM daily e MISC ACCU-CHEK Yes [id number] 1{each} 1 Each 6 [facility] FASTCLIX 7-23 times College LANCETS 00:00: daily. of MISC 00 Check 6 Medicin times per e day Insulin Pen Yes [id number] Use as [facility] Needle (BD 7-23 directed Colle ge PEN NEEDLE 00:00: to inject of SAIRA U/F) 00 7 times Medicin 32G X 4 MM daily e MISC ACCU-CHEK 2018-0 Yes [id number] 1{each} 1 Each 6 [facility] FASTCLIX 7-23 times College LANCETS 00:00: daily. of [facility] 00 Check 6 Medicin times per e day Insulin Pen 2017-0 Yes [id number] Use as Jayesh Needle (BD 7-23 directed Colle ge PEN NEEDLE 00:00: to inject of SAIRA U/F) 00 7 times Medicin 32G X 4 MM daily e MISC ACCU-CHEK 2017-0 Yes [id number] 1{each} 1 Each 6 [facility] FASTCLIX 7-23 times College LANCETS 00:00: daily. of [facility] 00 Check 6 Medicin times per e day Insulin Pen 2017-0 Yes [id number] Use as [facility] Needle (BD 7-23 directed Colle ge PEN NEEDLE 00:00: to inject of SAIRA U/F) 00 7 times Medicin 32G X 4 MM daily e MIS ACCU-CHEK 2017- Yes [id number] 1{each} 1 Each 6 [facility] FASTCLIX 7-23 times College LANCETS 00:00: daily. of [facility] 00 Check 6 Medicin times per e day Insulin Pen 2017-0 Yes [id number] Use as Jayesh Needle (BD 7-23 directed Colle ge PEN NEEDLE 00:00: to inject of SAIRA U/F) 00 7 times Medicin 32G X 4 MM daily e MIS ACCU-CHEK 2017-0 Yes [id number] 1{each} 1 Each 6 [facility] FASTCLIX 7-23 times College LANCETS 00:00: daily. of [facility] 00 Check 6 Medicin times per e day Insulin Pen 2017-0 Yes [id number] Use as [facility] Needle (BD 7-23 directed Colle ge PEN NEEDLE 00:00: to inject of SAIRA U/F) 00 7 times Medicin 32G X 4 MM daily e MISC ACCU-CHEK 2018-0 Yes [id number] 1{each} 1 Each 6 [facility] FASTCLIX 7-23 times College LANCETS 00:00: daily. of [facility] 00 Check 6 Medicin times per e day Insulin Pen 2017-0 Yes [id number] Use as [facility] Needle (BD 7-23 directed Colle ge PEN NEEDLE 00:00: to inject of SAIRA U/F) 00 7 times Medicin 32G X 4 MM daily e [facility] ACCU-CHEK 2018- Yes [id number] 1{each} 1 Each 6 [facility] FASTCLIX 7-23 times College LANCETS 00:00: daily. of [facility] 00 Check 6 Medicin times per e day Insulin Pen 2017- Yes [id number] Use as [facility] Needle (BD 05-16 directed Colle ge PEN NEEDLE 00:00: to inject of SAIRA U/F) 00 7 times Medicin 32G X 4 MM daily e [facility] ACCU-CHEK 2017- Yes [id number] 1{each} 1 Each 6 [facility] FASTCLIX 7-23 times [place] LANCETS 00:00: daily. of [facility] 00 Check 6 Medicin times per e day nortriptyli 2017- Yes TK 1 C PO U nivers ne 10 mg 3-05 Q NIGHT ity of capsule 00:00: [address] nortriptyli 2018-0 Yes TK 1 C PO U nivers ne 10 mg 3-05 Q NIGHT ity of capsule 00:00: [address] sulfamethox 2018-0 Yes 1{tbl} Take 1 Tab Jayesh azole-trime 2-26 by mouth [place] thoprim 00:00: two times of (BACTRIM 00 daily. Medicin DS) 800-160 e MG per tablet sulfamethox 2018-0 Yes 1{tbl} Take 1 Tab [facility] azole-trime 2-26 by mouth [place] [place] thoprim 00:00: two times of (BACTRIM 00 daily. Medicin DS) 800-160 e MG per tablet sulfamethox 2018-0 Yes 1{tbl} Take 1 Tab [facility] azole-trime 2-26 by mouth [place] [place] thoprim 00:00: two times of (BACTRIM 00 daily. Medicin DS) 800-160 e MG per tablet sulfamethox 2018-0 Yes 1{tbl} Take 1 Tab Jayesh azole-trime 2-26 by mouth [place] thoprim 00:00: two times of (BACTRIM 00 daily. Medicin DS) 800-160 e MG per tablet sulfamethox 2018-0 Yes 1{tbl} Take 1 Tab [facility] azole-trime 2-26 by mouth [place] thoprim 00:00: two times of (BACTRIM 00 daily. Medicin DS) 800-160 e MG per tablet sulfamethox 0 Yes 1{tbl} Take 1 Tab [facility] azole-trime 2-26 by mouth [place] thoprim 00:00: two times of (BACTRIM 00 daily. Medicin DS) 800-160 e MG per tablet sulfamethox 2017-0 Yes 1{tbl} Take 1 Tab [facility] azole-trime 2-26 by mouth [place] thoprim 00:00: two times of (BACTRIM 00 daily. Medicin DS) 800-160 e MG per tablet fluticasone Yes [id number] 2{spray 2 Sprays Jayesh (FLONASE) 2-12 } by Each [place] 50 MCG/ACT 00:00: Nostril of nasal spray 00 route Medicin daily. e fluticasone Yes [id number] 2{spray 2 Sprays Jayesh (FLONASE) 2-12 } by Each [place] 50 MCG/ACT 00:00: Nostril of nasal spray 00 route Medicin daily. e fluticasone Yes [id number] 2{spray 2 Sprays [facility] (FLONASE) 2-12 } by Each [place] 50 MCG/ACT 00:00: Nostril of nasal spray 00 route Medicin daily. e levalbutero Yes [id number] Inhale 2 [facility] l tartrate 1-24 puffs in Colle ge (XOPENEX 00:00: am and pm. of HFA) 45 00 May take Medicin MCG/ACT an e AERO additional inhaler 2 puffs throughout day if needed. levalbutero Yes [id number] Inhale 2 [facility] l tartrate 1-24 puffs in Colle ge (XOPENEX 00:00: am and pm. of HFA) 45 00 May take Medicin MCG/ACT an e AERO additional inhaler 2 puffs throughout day if needed. levalbutero Yes [id number] Inhale 2 [facility] l tartrate 1-24 puffs in Colle ge (XOPENEX 00:00: am and pm. of HFA) 45 00 May take Medicin MCG/ACT an e AERO additional inhaler 2 puffs throughout day if needed. SAIRA PEN Yes USE [facility] NEEDLE 32 1-19 DIRECTED ity of gauge x 00:00: TO INJECT [place] 5/32" Ndle 00 7 TIMES Medica l DAILY Branch SAIRA PEN Yes USE [facility] NEEDLE 32 1-19 DIRECTED ity of gauge x 00:00: TO INJECT [place] 5/32" Ndle 00 7 TIMES Medica l DAILY Branch predniSONE 2016-10 Yes [id number] 20mg Take 1 Tab Jayesh (DELTASONE) 1-17 by mouth [place] 20 MG 00:00: daily. of tablet 00 Medicin e acetaminoph Yes 1{tbl} Take 1 Tab Jayesh en-codeine 6-16 by mouth Colle ge (TYLENOL/CO 00:00: every 4 of DEINE #3) 00 hours as Medici n 300-30 MG needed for e per tablet Pain. acetaminoph Yes 1{tbl} Take 1 Tab [facility] en-codeine 6-16 by mouth Colle ge (TYLENOL/CO 00:00: every 4 of DEINE #3) 00 hours as Medici n 300-30 MG needed for e per tablet Pain. acetaminoph Yes 1{tbl} Take 1 Tab Jayesh en-codeine 6-16 by mouth Colle ge (TYLENOL/CO 00:00: every 4 of DEINE #3) 00 hours as Medici n 300-30 MG needed for e per tablet Pain. acetaminoph Yes 1{tbl} Take 1 Tab Jayesh en-codeine 6-16 by mouth Colle ge (TYLENOL/CO 00:00: every 4 of DEINE #3) 00 hours as Medici n 300-30 MG needed for e per tablet Pain. acetaminoph Yes 1{tbl} Take 1 Tab [facility] en-codeine 6-16 by mouth Colle ge (TYLENOL/CO 00:00: every 4 of DEINE #3) 00 hours as Medici n 300-30 MG needed for e per tablet Pain. acetaminoph Yes 1{tbl} Take 1 Tab [facility] en-codeine 6-16 by mouth Colle ge (TYLENOL/CO 00:00: every 4 of DEINE #3) 00 hours as Medici n 300-30 MG needed for e per tablet Pain. acetaminoph Yes 1{tbl} Take 1 Tab Jayesh en-codeine 6-16 by mouth Colle ge (TYLENOL/CO 00:00: every 4 of DEINE #3) 00 hours as Medici n 300-30 MG needed for e per tablet Pain. acetaminoph Yes 1{tbl} Take 1 Tab [facility] en-codeine 6-16 by mouth Colle ge (TYLENOL/CO 00:00: every 4 of DEINE #3) 00 hours as Medici n 300-30 MG needed for e per tablet Pain. multivit Yes 1{capsu Take 1 Univ ers with min 2-27 le} capsule by ity o f #[id number] 00:[place] (DEKAS 00 Medical PLUS, FOLIC Branch ACID,) 200 mcg-1,000 mcg-10 mg Cap CREON Yes Univers 24,000-76,0 2-27 ity of 00 -120,000 00:00: [place] unit 00 Medical capsule Branch multivit Yes 1{capsu Take 1 Univ ers with min 2-27 le} capsule by ity o f #[id number] 00:00[place] (DEKAS 00 Medical PLUS, FOLIC Branch ACID,) 200 mcg-1,000 mcg-10 mg Cap CREON Yes Univers 24,000-76,0 2-27 ity of 00 -120,000 00:00: [place] unit 00 Medical capsule Branch dornase Yes 2.5mg Inhale 2.5 Uni vers brittani 2-24 mg. ity of (PULMOZYME) 00:00: [place] 1 mg/mL 00 Medical [facility] nebulizer solution dornase Yes 2.5mg Inhale 2.5 Uni vers brittani 2-24 mg. ity of (PULMOZYME) 00:00: [place] 1 mg/mL 00 Medical Soln [place] nebulizer solution traMADOL 50 2020- No TAKE 2 Uni vers mg tablet 10-29-21 TABLET PO ity of 00:00: 00:00 Q 6 HOURS [place] 00 :00 PRN Medical Branch traMADOL 50 2020- No TAKE 2 Uni vers mg tablet 10-29-21 TABLET PO ity of 00:00: 00:00 Q 6 HOURS [place] 00 :00 PRN Medical Branch BETHKIS 300 2015- Yes Univer s mg/4 mL 1-21 ity of Nebu 00:00: [place] 00 Medical Branch BETHKIS 300 Yes Univer s mg/4 mL 1-21 ity of Nebu 00:00: [place] 00 Medical Branch sulfamethox 2016- No 1{tbl} Take 1 Tab [facility] azole-trime 11-05-12 by mouth Col lege thoprim 19:13: 00:00 two times of (BACTRIM 45 :00 daily. Medicin DS) 800-160 e MG per tablet cetirizine 2014-10 Yes Univers (ZYRTEC) 10 2-27 ity of mg tablet 00:00: [place] 00 Medical Branch cetirizine 2014-10 Yes Univers (ZYRTEC) 10 2-27 ity of mg tablet 00:00: [place] 00 Medical Branch sodium 2015- No 1{spray 1 [place] by [facility] chloride 06-26 } Nasal College (NASAL) 18:18: 00:00 route as of 0.65 % 19 :00 needed for Medicin nasal spray Congestion e . fluticasone 2015- No 1{spray 1 [place] by [facility] (FLONASE) 06-26 } Each College 50 MCG/ACT 18:18: 00:00 Nostril of nasal spray 10 :00 route Medicin daily. e levalbutero 2016- No [id number] Inhale 2 [facility] l tartrate 7 07-15 puffs in [place] (XOPENEX 00:00: 00:00 am and pm. of HFA) 45 00 :00 May take Medicin MCG/ACT an e AERO additional inhaler 2 puffs throughout day if needed. Norethin-Et 2015- No [id number] 10ug Take 10 [facility] h Estrad-Fe 6-12 12-24 mcg by Malcolm Taylor (LO 00:00: 00:00 mouth of LOESTRIN 00 :00 daily. Medicin FE) 1 MG-10 e MCG / 10 MCG TABS sodium 2016- No [id number] 4mL Take 1 [place] chloride, 5-19 01-25 Ampule by [place] Inhalant, 00:00: 00:00 nebulizati o f (HYPERSAL) 00 :00 on two Medicin 7 % times e nebulizer daily. solution esomeprazol 2015- No [id number] 40mg Take 1 Cap [facility] e (NEXIUM) 03-12 by mouth [place] 40 MG 00:00: 00:00 daily. of capsule 00 :00 Medicin e Multiple 2015- No [id number] 1{tbl} Take 1 [facility] Vitamins-Mi 03-12 tablet by Co llege nerals 00:00: 00:00 mouth two of (AQUADEKS) 00 :00 times Medicin CAPS daily. e dornase 2015- No [id number] 2.5mg Take 1 [facility] alpha 03-12 Ampule by [place] (PULMOZYME) 00:00: 00:00 nebulizati of 1 MG/ML 00 :00 on two Medicin nebulizer times e solution daily. albuterol 2014- No [id number] USE ONE [facility] (PROVENTIL) 03-12 VIAL IN [place] (2.5 mg/3 00:00: 00:00 NEBULIZER of mL) 0.083% 00 :00 THREE Medicin nebulizer TIMES e solution DAILY NEEDED FOR SHORTNESS OF BREATH imipenem-ci 2014- No [id number] Infuse [facility] lastatin 03-11- 1000 mg College (PRIMAXIN) 00:00: 00:00 every 8 of 500 MG 00 :00 hours x 20 Medicin injection weeks. e tigecycline 2014- No [id number] Infuse 50 [facility] (TYGACIL) 03-11 09-02 mg daily x Col lege 50 MG 00:00: 00:00 20 weeks. of infusion 00 :00 Medicin e linezolid 2014- No [id number] 600mg Take 1 Tab [facility] (ZYVOX) 600 02-22 by mouth Col lege MG tablet 00:00: 00:00 daily. of 00 :00 Medicin e insulin NPH 2017- No Inject 50 [facility] (HUMULIN 4-14 01-27 u AM and Colleg e N;NOVOLIN 00:00: 00:00 25u PM of N) 100 00 :00 Medicin UNIT/ML e injection NOVOLOG 2015- No [id number] 10U/d Inject [facility] FLEXPEN 100 01-18 07-14 10-60 Colleg e UNIT/ML 00:00: 00:00 Units/day of SOPN 00 :00 into the Medicin skin 3 e times daily (before meals). voriconazol 2016- No [id number] 200mg Take 1 Tab [facility] e (VFEND) 01-07 by mouth Colle ge 200 MG 00:00: 00:00 two times of tablet 00 :00 daily. Medicin e fluticasone 2016- No [id number] 1{puff} Inhale 1 [facility] -salmeterol 01-07 Puff by [place] (ADVAIR 00:00: 00:00 mouth two of DISKUS) 00 :00 times Medicin 500-50 daily. e MCG/DOSE Rinse and inhaler gargle with water afterwards . Insulin Pen 2016- No 7{each} 7 Each [facility] Needle (BD 12-12 daily. Colleg e PEN NEEDLE 00:00: 00:00 of SAIRA U/F) 00 :00 Medicin 32G X 4 MM e MISC ACCU-CHEK 2015- No Check [facility] SMARTVIEW 12-12 blood College 00:00: 00:00 sugar 5 of 00 :00 times per Medicin day e ACCU-CHEK 2015- No 150{eac 150 Each 5 [facility] FASTCLIX 12-12 h} times [place] [facility] 00:00: 00:00 [facility]. [facility] Check Medicin blood e sugar 5 times per day predniSONE 2015- No 3 tabs [place] or (DELTASONE) 12-12 10-26 daily x 1 Co llege 10 MG 00:00: 00:00 week, 2 of tablet 00 :00 tabs daily Medicin x 1 week, e 1 tab daily x 1 week then call office. Pancrelipas 2016- No [id number] Take 5 [facility] e, 11-26 with meals College Lip-Prot-Am 00:00: 00:00 and 2 with of yl, (CREON) 00 :00 [place] [id number] UNITS e CPEP Glucagon, 2013-10 2017- No [id number] 1{appli Inject 1 [facility] rDNA, 2 06-19 cator} Applicator Colle ge (GLUCAGON 00:00: 00:00 as of EMERGENCY) 00 :00 directed Medic in 1 MG KIT as needed. e zolpidem 2013-10- No 10mg Take 1 Tab [place] (AMBIEN) 10 13 05-05 by mouth Col lege MG tablet 00:00: 00:00 nightly as o f 00 :00 needed for Medicin Sleep. e colistimeth 2013-10 2015- No [id number] Infuse 100 [facility] ate 1-11 07-14 mg IV College (COLYMYCIN) 00:00: 00:00 every 8 of 150 MG 00 :00 hours. Medicin nebulizer e solution Cholecalcif 2016- No [id number] 1{capsu Take 1 [facility] gail 2000 06-30 10-03 le} capsule by Col lege UNITS TABS 00:00: 00:00 mouth of 00 :00 daily. Medicin e Fluticasone 2015- No [id number] 2{squir 2 Squirts [facility] Furoate 06-30 07-14 t} by Each [place] 27.5 00:00: 00:00 Nostril of MCG/SPRAY 00 :00 route Medicin SUSP daily. e Ergocalcife 2015- No 1{tbl} Take 1 Tab [facility] rol [id number] 06-13 08- by mouth Colle ge UNITS CAPS 00:00: 00:00 every 7 of 00 :00 days. Medicin e Guaifenesin 2015- No Take 1-2 [facility] -Codeine 01-19- teaspoons Colle ge (CHERATUSSI 00:00: 00:00 (5-10 mls) of N AC) 00 :00 for cough Medicin 100-10 at night. e MG/5ML liquid Nutritional 2015- No 4{can} Take 4 [facility] Supplements 10-26 08-17 Cans by [place] xavire (BOOST 00:00: 00:00 mouth four of PLUS) LIQD 00 :00 times Medicin daily. e Tobramycin 2014- No 4{capsu 4 capsules [facility] (KEREN 04-19 06-26 le} by Isaak LYNN) 00:00: 00:00 Inhalation o f 28 MG CAPS 00 :00 route two Medi [place] times e daily. Alternate 28 days on and 28 days off. Immunizations Ordered Filled Immunization Date Status Comments [facility] e Immunization Name Name Chau SARS-CoV-2 2021-01-02 Completed [facility] Vaccination 00:00:00 [facility] Influenza Virus 2019-07-18 Completed Universit y of Vaccine 00:00:00 [facility] Influenza Quad-PF 2019-07-18 Completed [facility] 00:00:00 Medicine Influenza Quad-PF 2019-07-18 Completed [facility] 00:00:00 Medicine Influenza Quad-PF 2019-07-18 Completed [facility] 00:00:00 Medicine Influenza Quad-PF 2019-07-18 Completed [facility] 00:00:00 Medicine Influenza Quad-PF 2019-07-18 Completed [facility] 00:00:00 Medicine Influenza Quad-PF 2019-07-18 Completed [facility] 00:00:00 Medicine Influenza Quad-PF 2019-07-18 Completed [facility] 00:00:00 Medicine Influenza Quad-PF 2019-07-18 Completed [facility] 00:00:00 Medicine Influenza Virus 2019-07-18 Completed Universit y of Vaccine 00:00:00 [facility] Influenza Virus 2018-08-16 Completed Universit y of Vaccine 00:00:00 [facility] Influenza Virus 2018-08-16 Completed Universit y of Vaccine 00:00:00 [facility] TDAP 2018-01-12 Completed University of 00:00:00 [facility] TDAP 2018-01-12 Completed University of 00:00:00 [facility] Influenza Virus 2017-10-08 Completed Universit y of Vaccine 00:00:00 [facility] Influenza Virus 2017-10-08 Completed Universit y of Vaccine 00:00:00 [facility] Influenza Quad-PF 2017-10-08 Completed [facility] 00:00:00 Medicine Influenza Quad-PF 2017-10-08 Completed [facility] 00:00:00 Medicine Influenza Quad-PF 2017-10-08 Completed [facility] 00:00:00 Medicine Influenza Quad-PF 2017-10-08 Completed [facility] 00:00:00 Medicine Influenza Quad-PF 2017-10-08 Completed [facility] 00:00:00 Medicine Influenza Quad-PF 2017-10-08 Completed [facility] 00:00:00 Medicine Influenza Quad-PF 2017-10-08 Completed [facility] 00:00:00 Medicine Influenza Quad-PF 2017-10-08 Completed [facility] 00:00:00 Medicine Influenza Quad-PF 2017-10-08 Completed [facility] 00:00:00 Medicine Influenza Virus 2016-08-08 Completed Universit y of Vaccine 00:00:00 [facility] Influenza Virus 2016-08-08 Completed Universit y of Vaccine 00:00:00 [facility] HPV9 2016-05-22 Completed University of 00:00:00 [facility] HPV9 2016-05-22 Completed University of 00:00:00 [facility] HPV9 2016-01-21 Completed University of 00:00:00 [facility] HPV9 2016-01-21 Completed University of 00:00:00 [facility] HPV9 2015-11-22 Completed University of 00:00:00 [facility] HPV9 2015-11-22 Completed University of 00:00:00 [facility] Influenza Virus 2015-08-05 Completed Universit y of Vaccine 00:00:00 [facility] Pneumococcal 13 2015-08-05 Completed Universit y of Conjugate, PCV13 00:00:00 [facility] (Prevnar 13) [place] Influenza Virus 2015-08-05 Completed Universit y of Vaccine 00:00:00 [facility] Pneumococcal 13 2015-08-05 Completed Universit y of Conjugate, PCV13 00:00:00 [facility] (Prevnar 13) [place] Influenza Virus 2012-08-30 Completed Universit y of Vaccine 00:00:00 [facility] Influenza Virus 2012-08-30 Completed Universit y of Vaccine (3+ yrs) 00:00:00 [facility] Influenza Virus 2012-08-30 Completed Universit y of Vaccine 00:00:00 [facility] Influenza Virus 2012-08-30 Completed Universit y of Vaccine (3+ yrs) 00:00:00 [facility] Influenza (whole) 2012-08-30 Completed [facility] 00:00:00 Medicine Influenza (whole) 2012-08-30 Completed [facility] 00:00:00 Medicine Influenza (whole) 2012-08-30 Completed [facility] 00:00:00 Medicine Influenza (whole) 2012-08-30 Completed [facility] 00:00:00 Medicine Influenza (whole) 2012-08-30 Completed [facility] 00:00:00 Medicine Influenza (whole) 2012-08-30 Completed [facility] 00:00:00 Medicine Influenza (whole) 2012-08-30 Completed [facility] 00:00:00 Medicine Influenza (whole) 2012-08-30 Completed [facility] 00:00:00 Medicine Influenza (whole) 2012-08-30 Completed [facility] 00:00:00 Medicine Influenza (whole) 2012-08-30 Completed [facility] 00:00:00 Medicine Influenza Virus 2011-11-27 Completed Universit y of Vaccine 00:00:00 [facility] Influenza Virus 2011-11-27 Completed Universit y of Vaccine (3+ yrs) 00:00:00 [facility] Influenza Virus 2011-11-27 Completed Universit y of Vaccine 00:00:00 [facility] Influenza Virus 2011-11-27 Completed Universit y of Vaccine (3+ yrs) 00:00:00 [facility] Influenza Virus 2011-08-14 Completed Universit y of Vaccine 00:00:00 [facility] Influenza Virus 2011-08-14 Completed Universit y of Vaccine (3+ yrs) 00:00:00 [facility] Influenza Virus 2011-08-14 Completed Universit y of Vaccine 00:00:00 [facility] Influenza Virus 2011-08-14 Completed Universit y of Vaccine (3+ yrs) 00:00:00 [facility] Influenza Virus 2010-11-15 Completed Universit y of Vaccine 00:00:00 [facility] Influenza Virus 2010-11-15 Completed Universit y of Vaccine (3+ yrs) 00:00:00 [facility] Influenza Virus 2010-11-15 Completed Universit y of Vaccine 00:00:00 [facility] Influenza Virus 2010-11-15 Completed Universit y of Vaccine (3+ yrs) 00:00:00 [facility] H1n1 Vaccine 2009-10-08 Completed University o f 00:00:00 [facility] Influenza Virus 2009-10-08 Completed Universit y of Vaccine 00:00:00 [facility] H1n1 Vaccine 2009-10-08 Completed University o f 00:00:00 [facility] Influenza Virus 2009-10-08 Completed Universit y of Vaccine (3+ yrs) 00:00:00 [facility] H1n1 Vaccine 2009-10-08 Completed University o f 00:00:00 [facility] Influenza Virus 2009-10-08 Completed Universit y of Vaccine 00:00:00 [facility] H1n1 Vaccine 2009-10-08 Completed University o f 00:00:00 [facility] Influenza Virus 2009-10-08 Completed Universit y of Vaccine (3+ yrs) 00:00:00 [facility] Influenza Virus 2008-08-07 Completed Universit y of Vaccine 00:00:00 [facility] Influenza Virus 2008-08-07 Completed Universit y of Vaccine (3+ yrs) 00:00:00 [facility] Influenza Virus 2008-08-07 Completed Universit y of Vaccine 00:00:00 [facility] Influenza Virus 2008-08-07 Completed Universit y of Vaccine (3+ yrs) 00:00:00 [facility] Td 2006-10-25 Completed University of 00:00:00 [facility] Td 2006-10-25 Completed University of 00:00:00 [facility] Influenza Virus 2006-09-14 Completed Universit y of Vaccine 00:00:00 [facility] Influenza Virus 2006-09-14 Completed Universit y of Vaccine (3+ yrs) 00:00:00 [facility] Influenza Virus 2006-09-14 Completed Universit y of Vaccine 00:00:00 [facility] Influenza Virus 2006-09-14 Completed Universit y of Vaccine (3+ yrs) 00:00:00 [facility] Influenza Virus 2005-10-02 Completed Universit y of Vaccine 00:00:00 [facility] Influenza Virus 2005-10-02 Completed Universit y of Vaccine (3+ yrs) 00:00:00 [facility] Influenza Virus 2005-10-02 Completed Universit y of Vaccine 00:00:00 [facility] Influenza Virus 2005-10-02 Completed Universit y of Vaccine (3+ yrs) 00:00:00 [facility] Influenza Virus 2003-08-30 Completed Universit y of Vaccine 00:00:00 [facility] Influenza Virus 2003-08-30 Completed Universit y of Vaccine (3+ yrs) 00:00:00 [facility] Influenza Virus 2003-08-30 Completed Universit y of Vaccine 00:00:00 [facility] Influenza Virus 2003-08-30 Completed Universit y of Vaccine (3+ yrs) 00:00:00 [facility] dicpa Branch DTAP 1997-06-18 Completed University of 00:00:00 [facility] MMR 1997-06-18 Completed University of 00:00:00 [facility] OPV 1997-06-18 Completed University of 00:00:00 [facility] Polio (IPV/OPV) 1997-06-18 Completed Universit y of 00:00:00 [facility] DTAP 1997-06-18 Completed University of 00:00:00 [facility] MMR 1997-06-18 Completed University of 00:00:00 [facility] OPV 1997-06-18 Completed University of 00:00:00 [facility] Polio (IPV/OPV) 1997-06-18 Completed Universit y of 00:00:00 [facility] Vital Signs Vital Name Observation Time Observation Value Comments Source Systolic blood 2021-10-14 15:21:00 116 mm[Hg] Univer sity of pressure [facility] Diastolic blood 2021-10-14 15:21:00 79 mm[Hg] Unive rsity of [facility] Heart rate 2021-10-14 15:21:00 114 /min [facility] Respiratory rate 2021-10-14 15:21:00 18 /min [facility] height 2021-10-14 15:21:[address] [facility] Body weight 2021-10-14 15:21:[address] [facility] BMI 2021-10-14 15:21:00 18.66 kg/m2 [facility] Oxygen saturation in 2021-10-14 15:21:00 98 /min [facility] Arterial blood by [facility] Pulse oximetry Branch Systolic blood 2021-01-06 16:07:00 144 mm[Hg] [facility] pressure Medicine Diastolic blood 2021-01-06 16:07:00 93 mm[Hg] [facility] Medicine Heart rate 2021-01-06 16:07:00 114 /min [facility] Body temperature 2021-01-06 16:07:00 37.5 [facility] Respiratory rate 2021-01-06 16:07:00 18 /min [facility] Body height 2021-01-06 16:07:00 157.3 cm [facility] Body weight 2021-01-06 16:07:00 47.854 kg [facility] BMI 2021-01-06 16:07:00 19.34 kg/m2 [facility] Systolic blood 2019-12-21 15:41:00 95 mm[Hg] [facility] pressure Medicine Diastolic blood 2019-12-21 15:41:00 67 mm[Hg] [facility] Medicine Heart rate 2019-12-21 15:41:00 110 /min [facility] Body temperature 2019-12-21 15:41:00 36.78 [facility] Respiratory rate 2019-12-21 15:41:00 18 /min [facility] Body height 2019-12-21 15:41:00 154.9 cm [facility] Body weight 2019-12-21 15:41:00 49.533 kg [facility] BMI 2019-12-21 15:41:00 20.63 kg/m2 [facility] Systolic blood 2019-12-21 15:41:00 95 mm[Hg] [facility] pressure Medicine Diastolic blood 2019-12-21 15:41:00 67 mm[Hg] [facility] Medicine Heart rate 2019-12-21 15:41:00 110 /min [facility] Body temperature 2019-12-21 15:41:00 36.78 [facility] Respiratory rate 2019-12-21 15:41:00 18 /min [facility] Body height 2019-12-21 15:41:00 154.9 cm [facility] Body weight 2019-12-21 15:41:00 49.533 kg [facility] BMI 2019-12-21 15:41:00 20.63 kg/m2 [facility] Systolic blood 2019-08-29 19:18:00 141 mm[Hg] [facility] pressure Medicine Diastolic blood 2019-08-29 19:18:00 95 mm[Hg] [facility] pressure Medicine Heart rate 2019-08-29 19:18:00 130 /min [facility] Body temperature 2019-08-29 19:18:00 36.83 [facility] Respiratory rate 2019-08-29 19:18:00 18 /min [facility] Body height 2019-08-29 19:18:00 154.9 cm [facility] Body weight 2019-08-29 19:18:00 50.168 kg [facility] BMI 2019-08-29 19:18:00 20.90 kg/m2 [facility] Systolic blood 2019-08-29 19:18:00 141 mm[Hg] [facility] pressure Medicine Diastolic blood 2019-08-29 19:18:00 95 mm[Hg] [facility] pressure Medicine Heart rate 2019-08-29 19:18:00 130 /min [facility] Body temperature 2019-08-29 19:18:00 36.83 [facility] Respiratory rate 2019-08-29 19:18:00 18 /min [facility] Body height 2019-08-29 19:18:00 154.9 cm [facility] Body weight 2019-08-29 19:18:00 50.168 kg [facility] BMI 2019-08-29 19:18:00 20.90 kg/m2 [facility] Systolic blood 2019-08-24 13:09:00 140 mm[Hg] [facility] pressure Medicine Diastolic blood 2019-08-24 13:09:00 102 mm[Hg] [facility] pressure Medicine Heart rate 2019-08-24 13:09:00 131 /min [facility] Body height 2019-08-24 13:09:00 154.9 cm [facility] Body weight 2019-08-24 13:09:00 49.079 kg [facility] BMI 2019-08-24 13:09:00 20.44 kg/m2 [facility] Systolic blood 2019-08-24 13:09:00 140 mm[Hg] [facility] pressure Medicine Diastolic blood 2019-08-24 13:09:00 102 mm[Hg] [facility] pressure Medicine Heart rate 2019-08-24 13:09:00 131 /min [facility] Body height 2019-08-24 13:09:00 154.9 cm [facility] Body weight 2019-08-24 13:09:00 49.079 kg [facility] BMI 2019-08-24 13:09:00 20.44 kg/m2 [facility] Systolic blood 2019-08-16 17:59:00 98 mm[Hg] [facility] pressure Medicine Diastolic blood 2019-08-16 17:59:00 62 mm[Hg] [facility] pressure Medicine Heart rate 2019-08-16 17:59:00 120 /min [facility] Body height 2019-08-16 17:59:00 154.9 cm [facility] Body weight 2019-08-16 17:59:00 52.164 kg [facility] BMI 2019-08-16 17:59:00 21.73 kg/m2 [facility] Systolic blood 2019-08-16 17:59:00 98 mm[Hg] [facility] pressure Medicine Diastolic blood 2019-08-16 17:59:00 62 mm[Hg] [facility] pressure Medicine Heart rate 2019-08-16 17:59:00 120 /min [facility] Body height 2019-08-16 17:59:00 154.9 cm [facility] Body weight 2019-08-16 17:59:00 52.164 kg [facility] BMI 2019-08-16 17:59:00 21.73 kg/m2 [facility] Systolic blood 2019-08-02 19:56:00 112 mm[Hg] [facility] pressure Medicine Diastolic blood 2019-08-02 19:56:00 62 mm[Hg] [facility] pressure Medicine Heart rate 2019-08-02 19:56:00 82 /min [facility] Body height 2019-08-02 19:56:00 154.9 cm [facility] Body weight 2019-08-02 19:56:00 50.349 kg [facility] BMI 2019-08-02 19:56:00 20.97 kg/m2 [facility] Systolic blood 2019-08-02 19:56:00 112 mm[Hg] [facility] pressure Medicine Diastolic blood 2019-08-02 19:56:00 62 mm[Hg] [facility] Medicine Heart rate 2019-08-02 19:56:00 82 /min [facility] Body height 2019-08-02 19:56:00 154.9 cm [facility] Body weight 2019-08-02 19:56:00 50.349 kg [facility] BMI 2019-08-02 19:56:00 20.97 kg/m2 [facility] Systolic blood 2019-07-24 14:32:00 136 mm[Hg] [facility] Medicine Diastolic blood 2019-07-24 14:32:00 84 mm[Hg] [facility] Medicine Heart rate 2019-07-24 14:32:00 118 /min [facility] Body temperature 2019-07-24 14:32:00 36.89 [facility] Respiratory rate 2019-07-24 14:32:00 16 /min [facility] Body height 2019-07-24 14:32:00 154.9 cm [facility] Body weight 2019-07-24 14:32:00 49.986 kg [facility] BMI 2019-07-24 14:32:00 20.82 kg/m2 [facility] Oxygen saturation in 2019-07-24 14:32:00 94 /min [facility] Arterial blood by [facility] Pulse oximetry Systolic blood 2019-07-24 14:32:00 136 mm[Hg] [facility] pressure Medicine Diastolic blood 2019-07-24 14:32:00 84 mm[Hg] [facility] Medicine Heart rate 2019-07-24 14:32:00 118 /min [facility] Body temperature 2019-07-24 14:32:00 36.89 [facility] Respiratory rate 2019-07-24 14:32:00 16 /min [facility] Body height 2019-07-24 14:32:00 154.9 cm [facility] 2019-07-24 14:32:00 49.986 kg [facility] BMI 2019-07-24 14:32:00 20.82 kg/m2 [facility] Oxygen saturation in 2019-07-24 14:32:00 94 /min [facility] Arterial blood by [facility] Pulse oximetry Systolic blood 2019-07-18 18:28:00 136 mm[Hg] [facility] pressure Medicine Diastolic blood 2019-07-18 18:28:00 90 mm[Hg] [facility] pressure Medicine Heart rate 2019-07-18 18:28:00 125 /min [facility] Body temperature 2019-07-18 18:28:00 36.94 [facility] Respiratory rate 2019-07-18 18:28:00 16 /min [facility] Body height 2019-07-18 18:28:00 154.9 cm [facility] Body weight 2019-07-18 18:28:00 48.988 kg [facility] BMI 2019-07-18 18:28:00 20.41 kg/m2 [facility] Systolic blood 2019-07-18 18:28:00 136 mm[Hg] [facility] pressure Medicine Diastolic blood 2019-07-18 18:28:00 90 mm[Hg] [facility] pressure Medicine Heart rate 2019-07-18 18:28:00 125 /min [facility] Body temperature 2019-07-18 18:28:00 36.94 [facility] Respiratory rate 2019-07-18 18:28:00 16 /min [facility] Body height 2019-07-18 18:28:00 154.9 cm [facility] Body weight 2019-07-18 18:28:00 48.988 kg [facility] BMI 2019-07-18 18:28:00 20.41 kg/m2 [facility] Systolic blood 2019-05-19 16:16:00 132 mm[Hg] [facility] pressure Medicine Diastolic blood 2019-05-19 16:16:00 94 mm[Hg] [facility] pressure Medicine Heart rate 2019-05-19 16:16:00 124 /min [facility] Body temperature 2019-05-19 16:16:00 37 [facility] Respiratory rate 2019-05-19 16:16:00 16 /min [facility] Body height 2019-05-19 16:16:00 154.9 cm [facility] Body weight 2019-05-19 16:16:00 46.902 kg [facility] BMI 2019-05-19 16:16:00 19.54 kg/m2 [facility] Systolic blood 2019-05-19 16:16:00 132 mm[Hg] [facility] Medicine Diastolic blood 2019-05-19 16:16:00 94 mm[Hg] [facility] Medicine Heart rate 2019-05-19 16:16:00 124 /min [facility] Body temperature 2019-05-19 16:16:00 37 [facility] Respiratory rate 2019-05-19 16:16:00 16 /min [facility] Body height 2019-05-19 16:16:00 154.9 cm [facility] Body weight 2019-05-19 16:16:00 46.902 kg [facility] BMI 2019-05-19 16:16:00 19.54 kg/m2 [facility] Systolic blood 2015-05-07 14:07:00 102 mm[Hg] [facility] pressure Medicine Diastolic blood 2015-05-07 14:07:00 62 mm[Hg] [facility] pressure Medicine Heart rate 2015-05-07 14:07:00 116 /min [facility] Body temperature 2015-05-07 14:07:00 37.11 [facility] Respiratory rate 2015-05-07 14:07:00 20 /min [facility] Body height 2015-05-07 14:07:00 157.5 cm [facility] Body weight 2015-05-07 14:07:00 43.545 kg [facility] BMI 2015-05-07 14:07:00 17.56 kg/m2 [facility] Systolic blood 2015-05-07 14:07:00 102 mm[Hg] [facility] Medicine Diastolic blood 2015-05-07 14:07:00 62 mm[Hg] [facility] Heart rate 2015-05-07 14:07:00 116 /min [facility] Body temperature 2015-05-07 14:07:00 37.11 [facility] Respiratory rate 2015-05-07 14:07:00 20 /min [facility] Body height 2015-05-07 14:07:00 157.5 cm [facility] Body weight 2015-05-07 14:07:00 43.545 kg [facility] BMI 2015-05-07 14:07:00 17.56 kg/m2 [facility] Procedures Procedure Date / Time Performed Performing Clinician [facility] e SPIROMETRY (IN CLINIC) 2021-01-06 16:23:00 Marco Smith [facility] SPIROMETRY (IN CLINIC) 2019-12-21 [facility] 2019-08-29 00:00:00 Tere Diaz [facility] POCT REAGENT STP/BLD 2019-08-16 08:00:00 Jenny Morgan [place] POCT KETONE, BLOOD 2019-08-02 20:19:00 Jenny Morgan [facility] POCT REAGENT STP/BLD 2019-08-02 20:10:00 [facility] 2019-07-18 18:39:00 Chino Waller [facility] SPIROMETRY (IN CLINIC) 2015-06-14 21:42:43 Marco Smith [facility] Plan of Care Planned Activity Planned Date Details Comments Source Future Scheduled ANNUAL DIABETIC [facility] RETINOPATHY Medicine SCREENING [code = ANNUAL DIABETIC RETINOPATHY SCREENING] Future Scheduled CERVICAL CANCER [facility] SCREENING 3 YEAR Medicine FOLLOW UP [code = CERVICAL CANCER SCREENING 3 YEAR FOLLOW UP] Future Scheduled A1C TESTING EVERY 6 [employer] [facility] [employer] MONTHS [code = A1C Medicine TESTING EVERY 6 MONTHS] Future Scheduled Diabetic foot [facility] examination Medicine (regime/therapy) [code = 737829470] Future Scheduled TETANUS SHOT (ADULT) [place] [employer] [facility] [code = TETANUS SHOT Medicin e (ADULT)] Future Scheduled ANNUAL DIABETIC [facility] RETINOPATHY Medicine SCREENING [code = ANNUAL DIABETIC RETINOPATHY SCREENING] Future Scheduled CERVICAL CANCER [facility] SCREENING 3 YEAR Medicine FOLLOW UP [code = CERVICAL CANCER SCREENING 3 YEAR FOLLOW UP] Future Scheduled A1C TESTING EVERY 6 [employer] MONTHS [code = A1C Medicine TESTING EVERY 6 MONTHS] Future Scheduled Diabetic foot [facility] examination Medicine (regime/therapy) [code = 145553930] Future Scheduled TETANUS SHOT (ADULT) [place] [employer] [facility] [code = TETANUS SHOT Medicin e (ADULT)] Future Scheduled ANNUAL DIABETIC [facility] RETINOPATHY Medicine SCREENING [code = ANNUAL DIABETIC RETINOPATHY SCREENING] Future Scheduled A1C TESTING EVERY 6 [employer] MONTHS [code = A1C Medicine TESTING EVERY 6 MONTHS] Future Scheduled Diabetic foot [facility] [employer] examination Medicine (regime/therapy) [code = 528193662] Future Scheduled CERVICAL CANCER [facility] SCREENING 3 YEAR Medicine FOLLOW UP [code = CERVICAL CANCER SCREENING 3 YEAR FOLLOW UP] Future Scheduled TETANUS SHOT (ADULT) [employer] [code = TETANUS SHOT Medicin e (ADULT)] Future Scheduled ANNUAL DIABETIC [facility] RETINOPATHY Medicine SCREENING [code = ANNUAL DIABETIC RETINOPATHY SCREENING] Future Scheduled A1C TESTING EVERY 6 [employer] MONTHS [code = A1C Medicine TESTING EVERY 6 MONTHS] Future Scheduled Diabetic foot [facility] [employer] examination Medicine (regime/therapy) [code = [id number]] Future Scheduled CERVICAL CANCER [facility] SCREENING 3 YEAR Medicine FOLLOW UP [code = CERVICAL CANCER SCREENING 3 YEAR FOLLOW UP] Future Scheduled TETANUS SHOT (ADULT) [employer] [facility] [code = TETANUS SHOT Medicin e (ADULT)] Future Scheduled ANNUAL DIABETIC [facility] RETINOPATHY Medicine SCREENING [code = ANNUAL DIABETIC RETINOPATHY SCREENING] Future Scheduled A1C TESTING EVERY 6 [facility] Test MONTHS [code = A1C Medicine TESTING EVERY 6 MONTHS] Future Scheduled Diabetic foot [facility] [employer] examination Medicine (regime/therapy) [code = 190782906] Future Scheduled CERVICAL CANCER [facility] of [facility] SCREENING 3 YEAR Medicine FOLLOW UP [code = CERVICAL CANCER SCREENING 3 YEAR FOLLOW UP] Future Scheduled TETANUS SHOT (ADULT) [facility] Test [code = TETANUS SHOT Medicin e (ADULT)] Future Scheduled ANNUAL DIABETIC [facility] RETINOPATHY Medicine SCREENING [code = ANNUAL DIABETIC RETINOPATHY SCREENING] Future Scheduled A1C TESTING EVERY 6 [facility] Test MONTHS [code = A1C Medicine TESTING EVERY 6 MONTHS] Future Scheduled Diabetic foot [facility] examination Medicine (regime/therapy) [code = 129217433] Future Scheduled CERVICAL CANCER [facility] of Test SCREENING 3 YEAR Medicine FOLLOW UP [code = CERVICAL CANCER SCREENING 3 YEAR FOLLOW UP] Future Scheduled TETANUS SHOT (ADULT) [facility] Test [code = TETANUS SHOT Medicin e (ADULT)] Future Scheduled HEPATIC FUNCTION Ordered: [facility] Test PANEL [code = 12/21/2019 Medicine 73161-4] Future Scheduled HEMOGLOBIN A1C [code Ordered: [facility] Test = 4548-4] 12/21/2019 Medicine Future Scheduled TETANUS SHOT (ADULT) [facility] Test [code = TETANUS SHOT Medicin e (ADULT)] Future Scheduled CERVICAL CANCER [facility] of Test SCREENING 3 YEAR Medicine FOLLOW UP [code = CERVICAL CANCER SCREENING 3 YEAR FOLLOW UP] Future Scheduled TETANUS SHOT (ADULT) [facility] Test [code = TETANUS SHOT Medicin e (ADULT)] Future Scheduled FLU VACCINE > 6 [facility] MONTHS [code = FLU Medicine VACCINE > 6 MONTHS] Future Scheduled CERVICAL CANCER [facility] SCREENING 3 YEAR Medicine FOLLOW UP [code = CERVICAL CANCER SCREENING 3 YEAR FOLLOW UP] Future Scheduled ZOSTER VACCINE (1 of [facility] of Test 2) [code = ZOSTER Medicine VACCINE (1 of 2)] Future Scheduled HEMOGLOBIN A1C [code Ordered: [facility] Test = 4548-4] 01/06/2021 Medicine Future Scheduled ACID FAST CULTURE Ordered: [facility] Test [code = 543-9] 01/06/2021 Medicine Future Scheduled CULTURE, Ordered: [facility] [employer] [facility] RESPIRATORY, CYSTIC 01/06/2021 Medicine FIBROSIS [code = NOCPT] Future Scheduled FUNGAL CULTURE [code Ordered: [facility] Test = 601-5] 01/06/2021 Medicine Future Scheduled FLU VACCINE > 6 [facility] Test MONTHS [code = FLU Medicine VACCINE > 6 MONTHS] Future Scheduled COVID-19 Vaccine (2 [facility] or [place] of Test - Pfizer 2-dose Medicine series) [code = COVID-19 Vaccine (2 - Pfizer 2-dose series)] Future Scheduled Screening for [facility] malignant neoplasm Medicine of cervix (procedure) [code = 592571497] Future Scheduled TETANUS SHOT (ADULT) [facility] Test [code = TETANUS SHOT Medicin e (ADULT)] Future Scheduled SLEEP EQUIPMENT Ordered: [facility] of Test DOWNLOAD [code = 05/19/2019 Medicine NOCPT] Future Scheduled ANNUAL DIABETIC [facility] RETINOPATHY Medicine SCREENING [code = ANNUAL DIABETIC RETINOPATHY SCREENING] Future Scheduled CERVICAL CANCER [facility] of Test SCREENING 3 YEAR Medicine FOLLOW UP [code = CERVICAL CANCER SCREENING 3 YEAR FOLLOW UP] Future Scheduled A1C TESTING EVERY 6 [facility] or [place] of Test MONTHS [code = A1C Medicine TESTING EVERY 6 MONTHS] Future Scheduled FLU VACCINE > 6 [facility] MONTHS [code = FLU Medicine VACCINE > 6 MONTHS] Future Scheduled Diabetic foot [facility] [employer] examination Medicine (regime/therapy) [code = 031094485] Future Scheduled TETANUS SHOT (ADULT) [facility] Test [code = TETANUS SHOT Medicin e (ADULT)] Encounters Start End Encounter Admission Attending Care Care Encounter Source Date/Time Date/Time Type Type Clinicians Facility Department ID 2021-10-14 2021-10-14 Office KATIE Del Valle [id number] [facility] 09:15:00 09:38:09 Visit Danielle CLARICE [id number] i ty aleksey CAMARA 4.2.7.2.686 Braden GALLARDO [id number] Hi dical [address] 2021-10-14 2021-10-14 Outpatient R KATIE DEL VALLE [facility] [id number] [facility] 09:15:00 09:38:09 DANIELLE kerri [facility] 2021-06-13 2021-06-13 Outpatient [facility] [id number] [facility] 09:57:28 13:52:18 [facility] 2021-05-21 2021-05-21 Nurse Nurse, [facility] [id number] 14:37:06 14:54:54 Visit [facility] [place] 350.1.13.10 [facility] 4.2.7.2.686 Profclaudia [id number] nal [address] 2021-05-19 2021-05-19 Outpatient MARCO SMITH [facility] [id number] [facility] 11:41:53 12:08:43 Colleg [facility] Medicin e 2021-04-22 2021-04-22 Outpatient SOWMYA DIAZ Alvino [id number] [facility] 12:53:55 13:09:22 TERE [facility]in e 2021-01-06 2021-01-06 Office Marco Smith Alvino [id number] [facility] 11:00:57 11:15:57 Visit AMBULATOR 350.1.13.21 College Y 0.2.7.2.686 of [id number] [facility] [place] 350 e 2021-01-06 2021-01-06 Outpatient TO DWYER [facility] [id number] SLE 00:00:00 00:00:00 2020-04-04 2020-04-04 Outpatient REYMUNDO SPICER [facility] [id number] SLE 00:00:00 00:00:00 JENIFER 2019-12-21 2019-12-21 Office SOWMYA Diaz [id number] [facility] 09:34:23 09:49:23 Visit Tere AMBULATOR 350.1.13.21 College Y 0.2.7.2.686 of [id number] [facility] [place] 350 e 2019-12-21 2019-12-21 Office SOWMYA Diaz [id number] 09:34:23 09:49:23 Visit Tere AMBULATOR 350.1.13.21 Y 0.2.7.2.686 [id number] 350 2019-08-29 2019-08-29 Office SOWMYA Diaz [id number] 13:12:05 14:57:22 Visit Tere AMBULATOR 350.1.13.21 Y 0.2.7.2.686 [id number] 350 2019-08-29 2019-08-29 Office SOWMYA Diaz [id number] [place] [address] 13:12:05 14:57:22 Visit Tere AMBULATOR 350.1.13.21 College Y 0.2.7.2.686 of [id number] [facility] 350 e 2019-08-24 2019-08-24 Office SOWMYA Ramirez [id number] [facility] 07:55:29 09:09:00 Visit Nicolaas AMBULATOR 350.1.13.21 Ivan Y 0.2.7.2.686 [id number] 2019-08-24 2019-08-24 Office SOWMYA Ramirez [id number] [place] [address] 07:55:29 09:09:00 Visit Nicolaas AMBULATOR 350.1.13.21 College Ivan Y 0.2.7.2.686 of [id number] [facility] 800 e 2019-08-16 2019-08-16 Office SOWMYA Morgan [id number] 12:46:06 13:46:06 Visit [employer] AMBULATOR 350.1.13.21 [employer] Y 0.2.7.2.686 [id number] 310 2019-08-16 2019-08-16 Office SOWMYA Morgan [id number] [place] [address] 12:46:06 13:46:06 Visit [employer] AMBULATOR 350.1.13.21 College [employer] Y 0.2.7.2.686 of [id number] [facility] 310 e 2019-08-02 2019-08-02 Office SOWMYA Morgan 1.2.840.114 [id number] 14:28:48 15:28:48 Visit [employer] AMBULATOR 350.1.13.21 [place] Y 0.2.7.2.686 [id number] 310 2019-08-02 2019-08-02 Office SOWMYA Morgan 1.2.840.114 [id number] [facility] 14:28:48 15:28:48 Visit [employer] AMBULATOR 350.1.13.21 College [employer] Y 0.2.7.2.686 of [id number] [facility] [place] 310 e 2019-07-24 2019-07-24 Office SOWMYA Tracey 1.2.840.114 [id number] 09:25:08 10:27:11 Visit Faith AMBULATOR 350.1.13.21 Y 0.2.7.2.686 [id number] 300 2019-07-24 2019-07-24 Office SOWMYA Tracey 1.2.840.114 [id number] [facility] 09:25:08 10:27:11 Visit Faith AMBULATOR 350.1.13.21 College Y 0.2.7.2.686 of [id number] [facility] [place] 300 e 2019-07-18 2019-07-18 Office SOWMYA Waller 1.2.840.114 [id number] 13:16:07 15:06:34 Visit Sunjay AMBULATOR 350.1.13.21 Y 0.2.7.2.686 [id number] 350 2019-07-18 2019-07-18 Office SOWMYA Waller [id number] [id number] [facility] 13:16:07 15:06:34 Visit Sunjay AMBULATOR 350.1.13.21 College Y 0.2.7.2.686 of [id number] [facility] 350 e 2019-05-19 2019-05-19 Office SOWMYA Stovall 1.2.840.114 [id number] 11:12:00 11:57:59 Visit Fidaa AMBULATOR 350.1.13.21 Y 0.2.7.2.686 [id number] [id number] 2019-05-19 2019-05-19 Office SOWMYA Stovall 1.2.840.114 [id number] [facility] 11:12:00 11:57:59 Visit Fidaa AMBULATOR 350.1.13.21 College Y 0.2.7.2.686 of [phone] [facility] 340 e 2015-05-07 2015-05-07 Office Marco Smith BC 1.2.840.114 [id number] 08:50:11 16:11:50 Visit AMBULATOR 350.1.13.21 Y 0.2.7.2.686 [id number] 353 2015-05-07 2015-05-07 Office Marco Smith BC 1.2.840.114 [id number] [facility] 08:50:11 16:11:50 Visit AMBULATOR 350.1.13.21 College Y 0.2.7.2.686 of [id number] [facility] 353 e Results Test Description Test Time Test Comments Results Result Comments Source AFB CULTURE + SMEAR (SPUTUM ONLY) 2021-02-18 13:50:00 Test Item Value Reference Range Interpretation Comme nts CULTURE (BEAKER) (test code = 1095) No acid-fast bacilli isolated i n 42 days AFB SMEAR (BEAKER) (test code = 994) No acid fast bacilli seen FUNGUS CULTURE + [id number] 00:23:00 Test Item Value Reference Range Interpretation Comments CULTURE (BEAKER) A <1+ Clau (test code = 1095) lisa frank FUNGUS SMEAR No fungi seen (BEAKER) (test code = 1406) CF RESPIRATORY [id number] 12:32:00 Test Item Value Reference Range Interpretation Comments CULTURE (BEAKER) A <1+ Pseudom onas (test code = 1095) aeruginos a (Mucoid-phenoty pe) CULTURE (BEAKER) PSEUDOMONAS A <1+ Pseudom onas (test code = 1095) AERUGINOSA aeruginos aof a (MUCOID-PHENOTYPE second typ e ) Amikacin (test code See_Comment S [Automa magdaleno = 1) message] The system which generated this result transmit magdaleno reference range : Susceptible 0-1 6 , Resistant <0 or >16 . The reference range was not used to interpret this result as normal/abnormal . Aztreonam (test code See_Comment S [Autom ated = 32) message] The system which generated this result transmit magdaleno reference range : Susceptible 0-8 , Resistant <0 or >8 . The reference range was not u sed to interpret th is result as normal/abnormal . Cefepime (test code See_Comment S [Automa magdaleno = 51) message] The system which generated this result transmit magdaleno reference range : Susceptible 0-8 , Resistant <0 or >8 . The reference range was not u sed to interpret th is result as normal/abnormal . Ceftazidime (test See_Comment S [Automate d code = 27) message] The system which generated this result transmit magdaleno reference range : Susceptible 0-8 , Resistant <0 or >8 . The reference range was not u sed to interpret th is result as normal/abnormal . Ciprofloxacin (test See_Comment R [Automa magdaleno code = 7) message] The system which generated this result transmit magdaleno reference range : Susceptible 0-0 .5 , Resistant <0 or >.5 . The reference range was not used to interpret this result as normal/abnormal . Doripenem (test code See_Comment R [Autom ated = 100) message] The system which generated this result transmit magdaleno reference range : Susceptible 0-2 , Resistant <0 or >2 . The reference range was not u sed to interpret th is result as normal/abnormal . Gentamicin (test See_Comment S [Automated code = 18) message] The system which generated this result transmit magdaleno reference range : Susceptible 0-4 , Resistant <0 or >4 . The reference range was not u sed to interpret th is result as normal/abnormal . Imipenem (test code See_Comment R [Automa magdaleno = 19) message] The system which generated this result transmit magdaleno reference range : Susceptible 0-2 , Resistant <0 or >2 . The reference range was not u sed to interpret th is result as normal/abnormal . Levofloxacin (test See_Comment R [Automat ed code = 22) message] The system which generated this result transmit magdaleno reference range : Susceptible 0-1 , Resistant <0 or >1 . The reference range was not u sed to interpret th is result as normal/abnormal . Meropenem (test code See_Comment R [Autom ated = 34) message] The system which generated this result transmit magdaleno reference range : Susceptible 0-2 , Resistant <0 or >2 . The reference range was not u sed to interpret th is result as normal/abnormal . Piperacillin (test See_Comment R [Automat ed code = 24) message] The system which generated this result transmit magdaleno reference range : Susceptible 0-1 6 , Resistant <0 or >16 . The reference range was not used to interpret this result as normal/abnormal . Piperacillin + See_Comment S [Automated Tazobactam (test message] Th e code = 29) system which generated this result transmit magdaleno reference range : Susceptible 0-1 6 , Resistant <0 or >16 . The reference range was not used to interpret this result as normal/abnormal . Tobramycin (test See_Comment S [Automated code = 25) message] The system which generated this result transmit magdaleno reference range : Susceptible 0-4 , Resistant <0 or >4 . The reference range was not u sed to interpret th is result as normal/abnormal . 4+ Normal respiratory derick presentSPIN/CONCENTRATION [id number] 08:27:00 Test Item Value Reference Range Interpretation Comments CONCENTRATION CHARGED (BEAKER) (test Done code = 2657) SPIROMETRY (IN CLINIC)2021-01-06 16:00:00Marco Smith MD 01/06/2021 1:03 PMPlease see graphic report for final interpretation. Date of testDate of test: 01/06/2193CUZ9TZM6: 1.15 LFEV1 % EXP: 45 %FVCFVC: 2.31 LFVC % EXPECT: 77 %FEV1 / FVCFEV1 / FVC: 0.53 %FEV1 / FVC % EXP: 61 %FEFFEF 25-75%: 0.44 l/minFEF % EXPEC: 14 %[facility] [id number] 09:14:00 FINAL REPORT MR, BRAIN, WITHOUT IV CONTRAST HISTORY: Headache COMPARISON: Intracranial MRA/MRV 03/26/2017, head CT 03/24/2017; cervical spine CT 06/02/2019; MRI of the brain/orbits 03/26/2017; cervical spine MRI 03/09/2015 TECHNIQUE:Sagittal T2, axial T2, axial T1, axial T2/FLAIR, axial gradient echo (or susceptibility weighted), coronal T2/FLAIR, and axial diffusion weighted MR images of the brain were obtained without contrast. DISCUSSION: Scalp/bone marrow: Unremarkable.Brain sulci: Appropriate for patient's age.Ventricles: Normal in size and configuration. No hydrocephalus.Extra-axial spaces: No masses or fluid collections. Parenchyma:No abnormal signal intensities.No mass, hemorrhage, or acute vascular insults. Vessels: Normal flow voids in major arteries and veins.Sellar/Suprasellar region: No abnormalities.Craniocervical junction: Slightly elongated cerebellar tonsils extend up to 7 mm below the foramen magnum. Associated 7 mm focal syrinx at C3-C4 is present.Incidentalfindings: Mild scattered paranasal sinus mucosal thickening. 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 Signed: German Morfin Verified Date/Time: 04/04/2020 09:14:42 Reading Location: [facility] Reading Room [address] [place] [address] SPIROMETRY (IN CLINIC)2019-12-21 16:00:00 Tere Diaz NP 12/21/2019 11:14 AMPlease see graphic report for final interpretation. Date of testDate of test: 12/21/1913GSK2VSO9: 1.19 LFEV1 % EXP: 47 %FVCFVC: 2.01 LFVC % EXPECT: 69 %FEV1 / FVCFEV1 / FVC: 0.6 %FEV1 / FVC % EXP: 70 %FEFFEF 25-75%: 0.55 l/minFEF % EXPEC: 18 %[facility]2019-12-18 15:21:00 Test Item Value Reference Range Interpretation Comments CULTURE (BEAKER) (test No acid-fast bacilli code = 1095) isolated in 42 days AFB SMEAR (BEAKER) No acid fast bacilli (test code = 994) seen FUNGUS CULTURE + [id number] 17:07:00 Test Item Value Reference Range Interpretation Comments CULTURE (BEAKER) A 2+ Clau (test code = 1095) lisa frank FUNGUS SMEAR No fungi seen (BEAKER) (test code = 1406) CF RESPIRATORY [id number] 07:18:00 Test Item Value Reference Range Interpretation Comments CULTURE (StaffInsightAKER) PSEUDOMONAS A <1+ Pseudom onas (test code = 1095) AERUGINOSA aeruginos a (MUCOID-PHENOTYPE (Mucoid-ph enotype ) )mucoid colony type Amikacin (test code Susceptible 0-16 S = 1) , Resistant <0 or >16 Aztreonam (test Susceptible 0-8 , S code = 32) Resistant <0 or >8 Cefepime (test code Susceptible 0-8 , R = 51) Resistant <0 or >8 Ceftazidime (test Susceptible 0-8 , S code = 27) Resistant <0 or >8 Ciprofloxacin (test Susceptible 0-0.5 R code = 7) , Resistant <0 or >.5 Gentamicin (test Susceptible 0-4 , S code = 18) Resistant <0 or >4 Levofloxacin (test Susceptible 0-1 , R code = 22) Resistant <0 or >1 Meropenem (test Susceptible 0-2 , R code = 34) Resistant <0 or >2 Piperacillin (test Susceptible 0-16 R code = 24) , Resistant <0 or >16 Piperacillin + Susceptible 0-16 R Tazobactam (test , Resistant <0 or code = 29) >16 Tobramycin (test Susceptible 0-4 , S code = 25) Resistant <0 or >4 CULTURE (StaffInsightAKER) PSEUDOMONAS A <1+ Pseudom onas (test code = 1095) AERUGINOSA aeruginos a Amikacin (test code Susceptible 0-16 R = 1) , Resistant <0 or >16 Aztreonam (test Susceptible 0-8 , R code = 32) Resistant <0 or >8 Cefepime (test code Susceptible 0-8 , R = 51) Resistant <0 or >8 Ceftazidime (test Susceptible 0-8 , R code = 27) Resistant <0 or >8 Ciprofloxacin (test Susceptible 0-0.5 R code = 7) , Resistant <0 or >.5 Gentamicin (test Susceptible 0-4 , S code = 18) Resistant <0 or >4 Levofloxacin (test Susceptible 0-1 , R code = 22) Resistant <0 or >1 Meropenem (test Susceptible 0-2 , R code = 34) Resistant <0 or >2 Piperacillin (test Susceptible 0-16 R code = 24) , Resistant <0 or >16 Piperacillin + Susceptible 0-16 R Tazobactam (test , Resistant <0 or code = 29) >16 Tobramycin (test Susceptible 0-4 , S code = 25) Resistant <0 or >4 4+ Normal respiratory derick presentSPIN/CONCENTRATION [id number] 01:32:00 Test Item Value Reference Range Interpretation Comments CONCENTRATION CHARGED (BEAKER) (test Done code = 2657) AFB CULTURE + [id number] 11:55:00 Test Item Value Reference Range Interpretation Comments CULTURE (BEAKER) (test No acid-fast bacilli code = 1095) isolated in 42 days AFB SMEAR (BEAKER) No acid fast bacilli (test code = 994) seen HEMOGLOBIN [id number] 09:08:00 Test Item Value Reference Range Interpretation Comments HEMOGLOBIN A1C (BEAKER) (test code = 11.1 % 4.3-6.1 H 368) FUNGUS CULTURE + [id number] 17:41:00 Test Item Value Reference Range Interpretation Comments CULTURE (BEAKER) A 1+ Clau (test code = 1095) lisa frank FUNGUS SMEAR No fungi seen (BEAKER) (test code = 1406) POCT-GLUCOSE [id number] 12:02:00 Test Item Value Reference Range Interpretation Comments POC-GLUCOSE METER 89 mg/dL 70-110 : TESTED A T [facility] 6720 (BEAKER) (test code = PAUL Tanner [facility], 1538) [id number]: Endocrinology Physician/Techni osvaldo ID = [id number] for Ibra him, Serkialem POCT-GLUCOSE [id number] 08:32:00 Test Item Value Reference Range Interpretation Comments POC-GLUCOSE METER 101 mg/dL 70-110 : TESTED A T [facility] 6720 (BEAKER) (test code [facility], = 1538) [id number]: Endocrinology Physician/Techni osvaldo ID = [id number] for Ibra him, Serkialem [id number] 06:13:00 Test Item Value Reference Range Interpretation Comments PHOSPHORUS (BEAKER) (test code = 4.0 mg/dL 2.3-4.7 604) [id number] 06:13:00 Test Item Value Reference Range Interpretation Comments MAGNESIUM (BEAKER) (test code = 1.8 mg/dL 1.6-2.6 627) BASIC METABOLIC [id number] 06:13:00 Test Item Value Reference Range Interpretation Comments SODIUM (BEAKER) 140 meq/L 136-145 (test code = 381) POTASSIUM (BEAKER) 4.5 meq/L 3.5-5.1 (test code = 379) CHLORIDE (BEAKER) 105 meq/L 98-107 (test code = 382) CO2 (BEAKER) (test 30 meq/L 22-29 H code = 355) BLOOD UREA NITROGEN 28 mg/dL 7-21 H (BEAKER) (test code = 354) CREATININE (BEAKER) 0.72 mg/dL 0.57-1.25 (test code = 358) GLUCOSE RANDOM 210 mg/dL 70-105 H (BEAKER) (test code = 652) CALCIUM (BEAKER) 8.0 mg/dL 8.4-10.2 L (test code = 697) EGFR (BEAKER) (test 118 mL/min/1.73 ESTIM ATED GFR IS code = 1092) sq m NOT ACCURATE CREATININE CLEARANCE IN PREDICTING GLOMERULAR FILTRATION RATE . ESTIMATED GFR I S NOT APPLICABLE FOR DIALYSIS PATIEN TS. CALCIUM, [id number] 05:13:00 Test Item Value Reference Range Interpretation Comments CALCIUM IONIZED (BEAKER) (test 1.03 mmol/L 1.12-1.27 L code = 698) PH, BLOOD (BEAKER) (test code = 7.39 1810) CBC W/PLT COUNT & AUTO [id number] 04:34:00 Test Item Value Reference Range Interpretation Comments WHITE BLOOD CELL COUNT (BEAKER) 12.6 K/ L 3.5-10.5 H (test code = 775) RED BLOOD CELL COUNT (BEAKER) 3.36 M/ L 3.93-5.22 L (test code = 761) HEMOGLOBIN (BEAKER) (test code = 9.1 GM/DL 11.2-15.7 L 410) HEMATOCRIT (BEAKER) (test code = 30.7 % 34.1-44.9 L 411) MEAN CORPUSCULAR VOLUME (BEAKER) 91.4 fL 79.4-94.8 (test code = 753) MEAN CORPUSCULAR HEMOGLOBIN 27.1 pg 25.6-32.2 (BEAKER) (test code = 751) MEAN CORPUSCULAR HEMOGLOBIN CONC 29.6 GM/DL 32.2-35.5 L (BEAKER) (test code = 752) RED CELL DISTRIBUTION WIDTH 16.8 % 11.7-14.4 H (BEAKER) (test code = 412) PLATELET COUNT (BEAKER) (test 284 K/CU MM 150-450 code = 756) MEAN PLATELET VOLUME (BEAKER) 12.1 fL 9.4-12.3 (test code = 754) NUCLEATED RED BLOOD CELLS 0 /100 WBC 0-0 (BEAKER) (test code = 413) NEUTROPHILS RELATIVE PERCENT 63 % (BEAKER) (test code = 429) LYMPHOCYTES RELATIVE PERCENT 24 % (BEAKER) (test code = 430) MONOCYTES RELATIVE PERCENT 9 % (BEAKER) (test code = 431) EOSINOPHILS RELATIVE PERCENT 4 % (BEAKER) (test code = 432) BASOPHILS RELATIVE PERCENT 0 % (BEAKER) (test code = 437) NEUTROPHILS ABSOLUTE COUNT 7.90 K/ L 1.56-6.13 H (BEAKER) (test code = 670) LYMPHOCYTES ABSOLUTE COUNT 2.97 K/ L 1.18-3.74 (BEAKER) (test code = 414) MONOCYTES ABSOLUTE COUNT (BEAKER) 1.09 K/ L 0.24-0.36 H (test code = 415) EOSINOPHILS ABSOLUTE COUNT 0.52 K/ L 0.04-0.36 H (BEAKER) (test code = 416) BASOPHILS ABSOLUTE COUNT (BEAKER) 0.04 K/ L 0.01-0.08 (test code = 417) IMMATURE GRANULOCYTES-RELATIVE 1 % 0-1 PERCENT (BEAKER) (test code = 2801) POCT-GLUCOSE [id number] 22:25:00 Test Item Value Reference Range Interpretation Comments POC-GLUCOSE METER 297 mg/dL 70-110 H : TESTED A T [facility] 6720 (BEAKER) (test code = [facility], 1538) [id number]: Endocrinology Physician/Techni osvaldo ID = [id number] for GRIFFIN REYNA POCT-GLUCOSE [id number] 17:01:00 Test Item Value Reference Range Interpretation Comments POC-GLUCOSE METER 173 mg/dL 70-110 H : TESTED A T [facility] 6720 (BEAKER) (test code = [facility], 1538) [id number]: Endocrinology Physician/Techni osvaldo ID = [id number] for CA STRO, HALIMA POCT-GLUCOSE [id number] 12:08:00 Test Item Value Reference Range Interpretation Comments POC-GLUCOSE METER 140 mg/dL 70-110 H : TESTED A T [facility] 6720 (BEAKER) (test code = [facility], 1538) [id number]: Endocrinology Physician/Techni osvaldo ID = [id number] for CA STRO, HALIMA POCT-GLUCOSE [id number] 08:20:00 Test Item Value Reference Range Interpretation Comments POC-GLUCOSE METER 89 mg/dL 70-110 : TESTED A T [facility] 6720 (BEAKER) (test code = [facility], 1538) [id number]: Endocrinology Physician/Techni osvaldo ID = [id number] for CAST RO, HALIMA [id number] 07:03:00 Test Item Value Reference Range Interpretation Comments PHOSPHORUS (BEAKER) (test code = 4.5 mg/dL 2.3-4.7 604) [id number] 07:03:00 Test Item Value Reference Range Interpretation Comments MAGNESIUM (BEAKER) (test code = 1.7 mg/dL 1.6-2.6 627) COMPREHENSIVE METABOLIC [id number] 07:03:00 Test Item Value Reference Range Interpretation Comments TOTAL PROTEIN 5.5 gm/dL 6.0-8.3 L (BEAKER) (test code = 770) ALBUMIN (BEAKER) 2.4 g/dL 3.5-5.0 L (test code = 1145) ALKALINE PHOSPHATASE 93 U/L 40-150 (BEAKER) (test code = 346) BILIRUBIN TOTAL 0.1 mg/dL 0.2-1.2 L (BEAKER) (test code = 377) SODIUM (BEAKER) (test 140 meq/L 136-145 code = 381) POTASSIUM (BEAKER) 4.6 meq/L 3.5-5.1 (test code = 379) CHLORIDE (BEAKER) 102 meq/L 98-107 (test code = 382) CO2 (BEAKER) (test 33 meq/L 22-29 H code = 355) BLOOD UREA NITROGEN 35 mg/dL 7-21 H (BEAKER) (test code = 354) CREATININE (BEAKER) 0.70 mg/dL 0.57-1.25 (test code = 358) GLUCOSE RANDOM 82 mg/dL 70-105 (BEAKER) (test code = 652) CALCIUM (BEAKER) 8.3 mg/dL 8.4-10.2 L (test code = 697) AST (SGOT) (BEAKER) 46 U/L 5-34 H (test code = 353) ALT (SGPT) (BEAKER) 107 U/L 6-55 H (test code = 347) EGFR (BEAKER) (test 122 ESTIMATE D GFR IS code = 1092) mL/min/1.73 sq NOT ACCURA TE m CREATININE CLEARANCE IN PREDICTING GLOMERULAR FILTRATION RATE . ESTIMATED GFR I S NOT APPLICABLE FOR DIALYSIS PATIEN TS. CBC W/PLT COUNT & AUTO [id number] 06:17:00 Test Item Value Reference Range Interpretation Comments WHITE BLOOD CELL COUNT (BEAKER) 15.6 K/ L 3.5-10.5 H (test code = 775) RED BLOOD CELL COUNT (BEAKER) 3.65 M/ L 3.93-5.22 L (test code = 761) HEMOGLOBIN (BEAKER) (test code = 9.9 GM/DL 11.2-15.7 L 410) HEMATOCRIT (BEAKER) (test code = 32.4 % 34.1-44.9 L 411) MEAN CORPUSCULAR VOLUME (BEAKER) 88.8 fL 79.4-94.8 (test code = 753) MEAN CORPUSCULAR HEMOGLOBIN 27.1 pg 25.6-32.2 (BEAKER) (test code = 751) MEAN CORPUSCULAR HEMOGLOBIN CONC 30.6 GM/DL 32.2-35.5 L (BEAKER) (test code = 752) RED CELL DISTRIBUTION WIDTH 16.5 % 11.7-14.4 H (BEAKER) (test code = 412) PLATELET COUNT (BEAKER) (test 315 K/CU MM 150-450 code = 756) MEAN PLATELET VOLUME (BEAKER) 11.5 fL 9.4-12.3 (test code = 754) NUCLEATED RED BLOOD CELLS 0 /100 WBC 0-0 (BEAKER) (test code = 413) NEUTROPHILS RELATIVE PERCENT 67 % (BEAKER) (test code = 429) LYMPHOCYTES RELATIVE PERCENT 22 % (BEAKER) (test code = 430) MONOCYTES RELATIVE PERCENT 8 % (BEAKER) (test code = 431) EOSINOPHILS RELATIVE PERCENT 3 % (BEAKER) (test code = 432) BASOPHILS RELATIVE PERCENT 0 % (BEAKER) (test code = 437) NEUTROPHILS ABSOLUTE COUNT 10.39 K/ L 1.56-6.13 H (BEAKER) (test code = 670) LYMPHOCYTES ABSOLUTE COUNT 3.37 K/ L 1.18-3.74 (BEAKER) (test code = 414) MONOCYTES ABSOLUTE COUNT (BEAKER) 1.17 K/ L 0.24-0.36 H (test code = 415) EOSINOPHILS ABSOLUTE COUNT 0.53 K/ L 0.04-0.36 H (BEAKER) (test code = 416) BASOPHILS ABSOLUTE COUNT (BEAKER) 0.03 K/ L 0.01-0.08 (test code = 417) IMMATURE GRANULOCYTES-RELATIVE 1 % 0-1 PERCENT (BEAKER) (test code = 2801) CALCIUM, [id number] 05:53:00 Test Item Value Reference Range Interpretation Comments CALCIUM IONIZED (BEAKER) (test 1.10 mmol/L 1.12-1.27 L code = 698) PH, BLOOD (BEAKER) (test code = 7.40 1810) POCT-GLUCOSE [id number] 21:39:00 Test Item Value Reference Range Interpretation Comments POC-GLUCOSE METER 260 mg/dL 70-110 H : TESTED A T [facility] 6720 (BEAKER) (test code = [facility], 1538) [id number]: Endocrinology Physician/Techni osvaldo ID = [id number] for SP ARKS, GRIFFIN UPPER RESPIRATORY [id number] 20:25:00 Test Item Value Reference Range Interpretation Comments CULTURE (BEAKER) 2+ Normal respiratory (test code = 1095) derick present POCT-GLUCOSE [id number] 17:23:00 Test Item Value Reference Range Interpretation Comments POC-GLUCOSE METER 118 mg/dL 70-110 H : TESTED A T [facility] 6720 (BEAKER) (test code = [facility], 1538) [id number]: Endocrinology Physician/Techni osvaldo ID = [id number] for CA STRO, HALIMA POCT-GLUCOSE [id number] 12:04:00 Test Item Value Reference Range Interpretation Comments POC-GLUCOSE METER 157 mg/dL 70-110 H : TESTED A T [facility] 6720 (BEAKER) (test code = [facility], 1538) [id number]: Endocrinology Physician/Techni osvaldo ID = [id number] for CA STRO, HALIMA HEPATIC FUNCTION [id number] 10:56:00 Test Item Value Reference Range Interpretation Comments TOTAL PROTEIN (BEAKER) (test code = 5.6 gm/dL 6.0-8.3 L 770) ALBUMIN (BEAKER) (test code = 1145) 2.4 g/dL 3.5-5.0 L BILIRUBIN TOTAL (BEAKER) (test code 0.1 mg/dL 0.2-1.2 L = 377) BILIRUBIN DIRECT (BEAKER) (test 0.1 mg/dL 0.1-0.5 code = 706) ALKALINE PHOSPHATASE (BEAKER) (test 97 U/L 40-150 code = 346) AST (SGOT) (BEAKER) (test code = 101 U/L 5-34 H 353) ALT (SGPT) (BEAKER) (test code = 150 U/L 6-55 H 347) POCT-GLUCOSE [id number] 07:54:00 Test Item Value Reference Range Interpretation Comments POC-GLUCOSE METER 113 mg/dL 70-110 H : TESTED A T [facility] 6720 (BEAKER) (test code = [facility], 1538) [id number]: Endocrinology Physician/Techni osvaldo ID = [id number] for CA STRO, HALIMA [id number] 06:57:00 Test Item Value Reference Range Interpretation Comments PHOSPHORUS (BEAKER) (test code = 3.9 mg/dL 2.3-4.7 604) [id number] 06:57:00 Test Item Value Reference Range Interpretation Comments MAGNESIUM (BEAKER) (test code = 1.7 mg/dL 1.6-2.6 627) BASIC METABOLIC [id number] 06:57:00 Test Item Value Reference Range Interpretation Comments SODIUM (BEAKER) 143 meq/L 136-145 (test code = 381) POTASSIUM (BEAKER) 4.7 meq/L 3.5-5.1 (test code = 379) CHLORIDE (BEAKER) 108 meq/L 98-107 H (test code = 382) CO2 (BEAKER) (test 31 meq/L 22-29 H code = 355) BLOOD UREA NITROGEN 27 mg/dL 7-21 H (BEAKER) (test code = 354) CREATININE (BEAKER) 0.75 mg/dL 0.57-1.25 (test code = 358) GLUCOSE RANDOM 99 mg/dL 70-105 (BEAKER) (test code = 652) CALCIUM (BEAKER) 8.3 mg/dL 8.4-10.2 L (test code = 697) EGFR (BEAKER) (test 112 mL/min/1.73 ESTIM ATED GFR IS code = 1092) sq m NOT ACCURATE CREATININE CLEARANCE IN PREDICTING GLOMERULAR FILTRATION RATE . ESTIMATED GFR I S NOT APPLICABLE FOR DIALYSIS PATIEN TS. CBC W/PLT COUNT & AUTO [id number] 06:56:00 Test Item Value Reference Range Interpretation Comments WHITE BLOOD CELL COUNT (BEAKER) 15.0 K/ L 3.5-10.5 H (test code = 775) RED BLOOD CELL COUNT (BEAKER) 3.61 M/ L 3.93-5.22 L (test code = 761) HEMOGLOBIN (BEAKER) (test code = 9.6 GM/DL 11.2-15.7 L 410) HEMATOCRIT (BEAKER) (test code = 32.4 % 34.1-44.9 L 411) MEAN CORPUSCULAR VOLUME (BEAKER) 89.8 fL 79.4-94.8 (test code = 753) MEAN CORPUSCULAR HEMOGLOBIN 26.6 pg 25.6-32.2 (BEAKER) (test code = 751) MEAN CORPUSCULAR HEMOGLOBIN CONC 29.6 GM/DL 32.2-35.5 L (BEAKER) (test code = 752) RED CELL DISTRIBUTION WIDTH 16.4 % 11.7-14.4 H (BEAKER) (test code = 412) PLATELET COUNT (BEAKER) (test 315 K/CU MM 150-450 code = 756) MEAN PLATELET VOLUME (BEAKER) 12.0 fL 9.4-12.3 (test code = 754) NUCLEATED RED BLOOD CELLS 0 /100 WBC 0-0 (BEAKER) (test code = 413) NEUTROPHILS RELATIVE PERCENT 72 % (BEAKER) (test code = 429) LYMPHOCYTES RELATIVE PERCENT 18 % (BEAKER) (test code = 430) MONOCYTES RELATIVE PERCENT 8 % (BEAKER) (test code = 431) EOSINOPHILS RELATIVE PERCENT 2 % (BEAKER) (test code = 432) BASOPHILS RELATIVE PERCENT 0 % (BEAKER) (test code = 437) NEUTROPHILS ABSOLUTE COUNT 10.74 K/ L 1.56-6.13 H (BEAKER) (test code = 670) LYMPHOCYTES ABSOLUTE COUNT 2.69 K/ L 1.18-3.74 (BEAKER) (test code = 414) MONOCYTES ABSOLUTE COUNT (BEAKER) 1.14 K/ L 0.24-0.36 H (test code = 415) EOSINOPHILS ABSOLUTE COUNT 0.24 K/ L 0.04-0.36 (BEAKER) (test code = 416) BASOPHILS ABSOLUTE COUNT (BEAKER) 0.02 K/ L 0.01-0.08 (test code = 417) IMMATURE GRANULOCYTES-RELATIVE 1 % 0-1 PERCENT (BEAKER) (test code = 2801) CALCIUM, [id number] 05:52:00 Test Item Value Reference Range Interpretation Comments CALCIUM IONIZED (BEAKER) (test 1.07 mmol/L 1.12-1.27 L code = 698) PH, BLOOD (BEAKER) (test code = 7.45 1810) POCT-GLUCOSE [id number] 21:54:00 Test Item Value Reference Range Interpretation Comments POC-GLUCOSE METER 223 mg/dL 70-110 H : TESTED A T [facility] 6720 (BEAKER) (test code = [facility] [place] [facility], 1538) [address]: Endocrinology Physician/Techni osvaldo ID = [id number] for LYNSEY BROWN POCT-GLUCOSE [id number] 17:26:00 Test Item Value Reference Range Interpretation Comments POC-GLUCOSE METER 179 mg/dL 70-110 H : TESTED A T [facility] 6720 (BEAKER) (test code = [facility] [place] [facility], 1538) [address]: Endocrinology Physician/Techni osvaldo ID = [id number] for Fabio Bello CF RESPIRATORY [id number] 17:18:00 Test Item Value Reference Range Interpretation Comments CULTURE (BEAKER) PSEUDOMONAS A 2+ Pseudomo viki (test code = 1095) AERUGINOSA aeruginos a (MUCOID-PHENOTYPE (Mucoid-ph enotype ) ) Amikacin (test code Susceptible 0-16 S = 1) , Resistant <0 or >16 Aztreonam (test Susceptible 0-8 , S code = 32) Resistant <0 or >8 Cefepime (test code Susceptible 0-8 , R = 51) Resistant <0 or >8 Ceftazidime (test Susceptible 0-8 , S code = 27) Resistant <0 or >8 Ciprofloxacin (test Susceptible 0-0.5 R code = 7) , Resistant <0 or >.5 Gentamicin (test Susceptible 0-4 , S code = 18) Resistant <0 or >4 Levofloxacin (test Susceptible 0-1 , R code = 22) Resistant <0 or >1 Meropenem (test Susceptible 0-2 , R code = 34) Resistant <0 or >2 Piperacillin (test Susceptible 0-16 S code = 24) , Resistant <0 or >16 Piperacillin + Susceptible 0-16 S Tazobactam (test , Resistant <0 or code = 29) >16 Tobramycin (test Susceptible 0-4 , S code = 25) Resistant <0 or >4 CULTURE (BEAKER) PSEUDOMONAS A 2+ Pseudomo viki (test code = 1095) AERUGINOSA aeruginos aof a second type Amikacin (test code Susceptible 0-16 S = 1) , Resistant <0 or >16 Aztreonam (test Susceptible 0-8 , S code = 32) Resistant <0 or >8 Cefepime (test code Susceptible 0-8 , S = 51) Resistant <0 or >8 Ceftazidime (test Susceptible 0-8 , S code = 27) Resistant <0 or >8 Ciprofloxacin (test Susceptible 0-0.5 R code = 7) , Resistant <0 or >.5 Gentamicin (test Susceptible 0-4 , S code = 18) Resistant <0 or >4 Levofloxacin (test Susceptible 0-1 , R code = 22) Resistant <0 or >1 Meropenem (test Susceptible 0-2 , S code = 34) Resistant <0 or >2 Piperacillin (test Susceptible 0-16 S code = 24) , Resistant <0 or >16 Piperacillin + Susceptible 0-16 S Tazobactam (test , Resistant <0 or code = 29) >16 Tobramycin (test Susceptible 0-4 , S code = 25) Resistant <0 or >4 CULTURE (BEAKER) PSEUDOMONAS A 2+ Pseudomo viki (test code = 1095) AERUGINOSA aeruginos a (MUCOID-PHENOTYPE (Mucoid-ph enotype ) )of a third typ e Amikacin (test code Susceptible 0-16 R = 1) , Resistant <0 or >16 Aztreonam (test Susceptible 0-8 , S code = 32) Resistant <0 or >8 Cefepime (test code Susceptible 0-8 , S = 51) Resistant <0 or >8 Ceftazidime (test Susceptible 0-8 , S code = 27) Resistant <0 or >8 Ciprofloxacin (test Susceptible 0-0.5 R code = 7) , Resistant <0 or >.5 Gentamicin (test Susceptible 0-4 , S code = 18) Resistant <0 or >4 Levofloxacin (test Susceptible 0-1 , R code = 22) Resistant <0 or >1 Meropenem (test Susceptible 0-2 , R code = 34) Resistant <0 or >2 Piperacillin (test Susceptible 0-16 R code = 24) , Resistant <0 or >16 Piperacillin + Susceptible 0-16 S Tazobactam (test , Resistant <0 or code = 29) >16 Tobramycin (test Susceptible 0-4 , S code = 25) Resistant <0 or >4 POCT-GLUCOSE [id number] 12:52:00 Test Item Value Reference Range Interpretation Comments POC-GLUCOSE METER 147 mg/dL 70-110 H : TESTED A T [facility] 6720 (BEAKER) (test [facility] = [facility], 1538) [address]: Endocrinology Physician/Techni osvaldo ID = [id number] for Ranjana delgadillovicky Fabio POCT-GLUCOSE [id number] 10:05:00 Test Item Value Reference Range Interpretation Comments POC-GLUCOSE METER 61 mg/dL 70-110 L : Pt. refu sed rpt tst: (BEAKER) (test code = TESTED AT [facility] 6720 1538) [facility], [address]: Endocrinology Physician/Techni osvaldo ID = [id number] for Aron santiagoFabio [id number] 07:55:00 Test Item Value Reference Range Interpretation Comments MAGNESIUM (BEAKER) 1.6 mg/dL 1.6-2.6 Specimen slightly (test code = 627) hemolyzed [id number] 07:55:00 Test Item Value Reference Range Interpretation Comments PHOSPHORUS (BEAKER) 3.9 mg/dL 2.3-4.7 Specimen slightly (test code = 604) hemolyzed BASIC METABOLIC [id number] 07:55:00 Test Item Value Reference Range Interpretation Comments SODIUM (BEAKER) 137 meq/L 136-145 (test code = 381) POTASSIUM (BEAKER) 4.5 meq/L 3.5-5.1 Specimen slightly (test code = 379) hemolyzed CHLORIDE (BEAKER) 105 meq/L 98-107 (test code = 382) CO2 (BEAKER) (test 27 meq/L 22-29 code = 355) BLOOD UREA NITROGEN 35 mg/dL 7-21 H (BEAKER) (test code = 354) CREATININE (BEAKER) 0.74 mg/dL 0.57-1.25 Specimen slightly (test code = 358) hemolyzed GLUCOSE RANDOM 150 mg/dL 70-105 H (BEAKER) (test code = 652) CALCIUM (BEAKER) 8.6 mg/dL 8.4-10.2 (test code = 697) EGFR (BEAKER) (test 114 mL/min/1.73 ESTIM ATED GFR IS code = 1092) sq m NOT ACCURATE CREATININE CLEARANCE IN PREDICTING GLOMERULAR FILTRATION RATE . ESTIMATED GFR I S NOT APPLICABLE FOR DIALYSIS PATIEN TS. CBC W/PLT COUNT & AUTO [id number] 06:43:00 Test Item Value Reference Range Interpretation Comments WHITE BLOOD CELL COUNT (BEAKER) 17.7 K/ L 3.5-10.5 H (test code = 775) RED BLOOD CELL COUNT (BEAKER) 3.61 M/ L 3.93-5.22 L (test code = 761) HEMOGLOBIN (BEAKER) (test code = 9.7 GM/DL 11.2-15.7 L 410) HEMATOCRIT (BEAKER) (test code = 32.3 % 34.1-44.9 L 411) MEAN CORPUSCULAR VOLUME (BEAKER) 89.5 fL 79.4-94.8 (test code = 753) MEAN CORPUSCULAR HEMOGLOBIN 26.9 pg 25.6-32.2 (BEAKER) (test code = 751) MEAN CORPUSCULAR HEMOGLOBIN CONC 30.0 GM/DL 32.2-35.5 L (BEAKER) (test code = 752) RED CELL DISTRIBUTION WIDTH 15.9 % 11.7-14.4 H (BEAKER) (test code = 412) PLATELET COUNT (BEAKER) (test 314 K/CU MM 150-450 code = 756) MEAN PLATELET VOLUME (BEAKER) 12.5 fL 9.4-12.3 H (test code = 754) NUCLEATED RED BLOOD CELLS 0 /100 WBC 0-0 (BEAKER) (test code = 413) NEUTROPHILS RELATIVE PERCENT 79 % (BEAKER) (test code = 429) LYMPHOCYTES RELATIVE PERCENT 12 % (BEAKER) (test code = 430) MONOCYTES RELATIVE PERCENT 8 % (BEAKER) (test code = 431) EOSINOPHILS RELATIVE PERCENT 1 % (BEAKER) (test code = 432) BASOPHILS RELATIVE PERCENT 0 % (BEAKER) (test code = 437) NEUTROPHILS ABSOLUTE COUNT 14.00 K/ L 1.56-6.13 H (BEAKER) (test code = 670) LYMPHOCYTES ABSOLUTE COUNT 2.15 K/ L 1.18-3.74 (BEAKER) (test code = 414) MONOCYTES ABSOLUTE COUNT (BEAKER) 1.32 K/ L 0.24-0.36 H (test code = 415) EOSINOPHILS ABSOLUTE COUNT 0.10 K/ L 0.04-0.36 (BEAKER) (test code = 416) BASOPHILS ABSOLUTE COUNT (BEAKER) 0.03 K/ L 0.01-0.08 (test code = 417) IMMATURE GRANULOCYTES-RELATIVE 1 % 0-1 PERCENT (BEAKER) (test code = 2801) CALCIUM, [id number] 06:28:00 Test Item Value Reference Range Interpretation Comments CALCIUM IONIZED (BEAKER) (test 1.05 mmol/L 1.12-1.27 L code = 698) PH, BLOOD (BEAKER) (test code = 7.31 1810) POCT-GLUCOSE [id number] 21:46:00 Test Item Value Reference Range Interpretation Comments POC-GLUCOSE METER 356 mg/dL 70-110 H : TESTED A T [facility] 6720 (BEAKER) (test code = [place], 1538) [address]: Endocrinology Physician/Techni osvaldo ID = [id number] for BRITTNEE RODRIGUEZ POCT-GLUCOSE [id number] 17:55:00 Test Item Value Reference Range Interpretation Comments POC-GLUCOSE METER 300 mg/dL 70-110 H : TESTED A T [facility] 6720 (BEAKER) (test code = [facility], 1538) [address]: Endocrinology Physician/Techni osvaldo ID = [id number] for JEANETTE CHAVES POCT-GLUCOSE [id number] 12:19:00 Test Item Value Reference Range Interpretation Comments POC-GLUCOSE METER 176 mg/dL 70-110 H : TESTED A T [facility] 6720 (BEAKER) (test code = [facility], 1538) [address]: Endocrinology Physician/Techni osvaldo ID = [id number] for SALOMÓN LEMOS POCT-GLUCOSE [id number] 07:45:00 Test Item Value Reference Range Interpretation Comments POC-GLUCOSE METER 198 mg/dL 70-110 H : TESTED A T [facility] 6720 (BEAKER) (test code = [facility], 1538) [address]: Endocrinology Physician/Techni osvaldo ID = [id number] for SALOMÓN LEMOS CALCIUM, [id number] 07:36:00 Test Item Value Reference Range Interpretation Comments CALCIUM IONIZED (BEAKER) (test 1.16 mmol/L 1.12-1.27 code = 698) PH, BLOOD (BEAKER) (test code = 7.31 1810) CBC W/PLT COUNT & AUTO [id number] 04:03:00 Test Item Value Reference Range Interpretation Comments WHITE BLOOD CELL COUNT (BEAKER) 16.5 K/ L 3.5-10.5 H (test code = 775) RED BLOOD CELL COUNT (BEAKER) 3.90 M/ L 3.93-5.22 L (test code = 761) HEMOGLOBIN (BEAKER) (test code = 10.5 GM/DL 11.2-15.7 L 410) HEMATOCRIT (BEAKER) (test code = 34.1 % 34.1-44.9 411) MEAN CORPUSCULAR VOLUME (BEAKER) 87.4 fL 79.4-94.8 (test code = 753) MEAN CORPUSCULAR HEMOGLOBIN 26.9 pg 25.6-32.2 (BEAKER) (test code = 751) MEAN CORPUSCULAR HEMOGLOBIN CONC 30.8 GM/DL 32.2-35.5 L (BEAKER) (test code = 752) RED CELL DISTRIBUTION WIDTH 15.9 % 11.7-14.4 H (BEAKER) (test code = 412) PLATELET COUNT (BEAKER) (test 331 K/CU MM 150-450 code = 756) MEAN PLATELET VOLUME (BEAKER) 11.8 fL 9.4-12.3 (test code = 754) NUCLEATED RED BLOOD CELLS 0 /100 WBC 0-0 (BEAKER) (test code = 413) NEUTROPHILS RELATIVE PERCENT 79 % (BEAKER) (test code = 429) LYMPHOCYTES RELATIVE PERCENT 12 % (BEAKER) (test code = 430) MONOCYTES RELATIVE PERCENT 8 % (BEAKER) (test code = 431) EOSINOPHILS RELATIVE PERCENT 0 % (BEAKER) (test code = 432) BASOPHILS RELATIVE PERCENT 0 % (BEAKER) (test code = 437) NEUTROPHILS ABSOLUTE COUNT 13.06 K/ L 1.56-6.13 H (BEAKER) (test code = 670) LYMPHOCYTES ABSOLUTE COUNT 1.91 K/ L 1.18-3.74 (BEAKER) (test code = 414) MONOCYTES ABSOLUTE COUNT (BEAKER) 1.34 K/ L 0.24-0.36 H (test code = 415) EOSINOPHILS ABSOLUTE COUNT 0.07 K/ L 0.04-0.36 (BEAKER) (test code = 416) BASOPHILS ABSOLUTE COUNT (BEAKER) 0.03 K/ L 0.01-0.08 (test code = 417) IMMATURE GRANULOCYTES-RELATIVE 1 % 0-1 PERCENT (BEAKER) (test code = 2801) [id number] 03:49:00 Test Item Value Reference Range Interpretation Comments PHOSPHORUS (BEAKER) (test code = 3.8 mg/dL 2.3-4.7 604) [id number] 03:49:00 Test Item Value Reference Range Interpretation Comments MAGNESIUM (BEAKER) (test code = 2.0 mg/dL 1.6-2.6 627) BASIC METABOLIC [id number] 03:49:00 Test Item Value Reference Range Interpretation Comments SODIUM (BEAKER) 138 meq/L 136-145 (test code = 381) POTASSIUM (BEAKER) 4.4 meq/L 3.5-5.1 (test code = 379) CHLORIDE (BEAKER) 106 meq/L 98-107 (test code = 382) CO2 (BEAKER) (test 26 meq/L 22-29 code = 355) BLOOD UREA NITROGEN 26 mg/dL 7-21 H ([facility]) (test code = 354) CREATININE (BEAKER) 0.81 mg/dL 0.57-1.25 (test code = 358) GLUCOSE RANDOM 153 mg/dL 70-105 H ([facility]) (test code = 652) CALCIUM (BEAKER) 8.4 mg/dL 8.4-10.2 (test code = 697) EGFR ([facility]) (test 103 mL/min/1.73 ESTIM ATED GFR IS code = 1092) sq m NOT ACCURATE CREATININE CLEARANCE IN PREDICTING GLOMERULAR FILTRATION RATE . ESTIMATED GFR I S NOT APPLICABLE FOR DIALYSIS PATIEN TS. POCT-GLUCOSE [id number] 22:24:00 Test Item Value Reference Range Interpretation Comments POC-GLUCOSE METER 401 mg/dL 70-110 HH : Notified RN/MD: ([facility]) (test code = TESTED AT [facility] 6720 1537) [facility], [address]: Endocrinology Physician/Techni osvaldo ID = [id number] for SP DANII GRIFFIN BLOOD [id number] 19:01:00 Test Item Value Reference Range Interpretation Comments CULTURE (BEAKER) (test No growth in 5 days code = 1095) BLOOD [id number] 19:01:00 Test Item Value Reference Range Interpretation Comments CULTURE (BEAKER) (test No growth in 5 days code = 1095) POCT-GLUCOSE [id number] 17:12:00 Test Item Value Reference Range Interpretation Comments POC-GLUCOSE METER 381 mg/dL 70-110 H : [facility]) (test code = [facility], 153) [address]: Endocrinology Physician/Techni osvaldo ID = [id number] for CA STRO, HALIMA POCT-GLUCOSE [id number] 12:19:00 Test Item Value Reference Range Interpretation Comments POC-GLUCOSE METER 129 mg/dL 70-110 H : TESTED A T [facility] 6720 ([facility]) (test code = [facility], 153) [address]: Endocrinology Physician/Techni osvaldo ID = [id number] for CA STRO, HALIMA POCT-GLUCOSE [id number] 08:14:00 Test Item Value Reference Range Interpretation Comments POC-GLUCOSE METER 72 mg/dL 70-110 : TESTED A T [facility] 6720 (BEAKER) (test code = [place], 1538) [address]: Endocrinology Physician/Techni osvaldo ID = [id number] for HALIMA BOWEN CALCIUM, [id number] 07:16:00 Test Item Value Reference Range Interpretation Comments CALCIUM IONIZED (BEAKER) (test 1.18 mmol/L 1.12-1.27 code = 698) PH, BLOOD (BEAKER) (test code = 7.35 1810) [id number] 05:01:00 Test Item Value Reference Range Interpretation Comments PHOSPHORUS (BEAKER) (test code = 3.0 mg/dL 2.3-4.7 604) [id number] 05:01:00 Test Item Value Reference Range Interpretation Comments MAGNESIUM (BEAKER) (test code = 1.4 mg/dL 1.6-2.6 L 627) BASIC METABOLIC [id number] 05:01:00 Test Item Value Reference Range Interpretation Comments SODIUM (BEAKER) 139 meq/L 136-145 (test code = 381) POTASSIUM (BEAKER) 3.7 meq/L 3.5-5.1 (test code = 379) CHLORIDE (BEAKER) 107 meq/L 98-107 (test code = 382) CO2 (BEAKER) (test 24 meq/L 22-29 code = 355) BLOOD UREA NITROGEN 17 mg/dL 7-21 (BEAKER) (test code = 354) CREATININE (BEAKER) 0.75 mg/dL 0.57-1.25 (test code = 358) GLUCOSE RANDOM 249 mg/dL 70-105 H (BEAKER) (test code = 652) CALCIUM (BEAKER) 8.4 mg/dL 8.4-10.2 (test code = 697) EGFR (BEAKER) (test 112 mL/min/1.73 ESTIM ATED GFR IS code = 1092) sq m NOT ACCURATE CREATININE CLEARANCE IN PREDICTING GLOMERULAR FILTRATION RATE . ESTIMATED GFR I S NOT APPLICABLE FOR DIALYSIS PATIEN TS. CBC W/PLT COUNT & AUTO [id number] 04:54:00 Test Item Value Reference Range Interpretation Comments WHITE BLOOD CELL COUNT (BEAKER) 13.2 K/ L 3.5-10.5 H (test code = 775) RED BLOOD CELL COUNT (BEAKER) 3.85 M/ L 3.93-5.22 L (test code = 761) HEMOGLOBIN (BEAKER) (test code = 10.2 GM/DL 11.2-15.7 L 410) HEMATOCRIT (BEAKER) (test code = 33.5 % 34.1-44.9 L 411) MEAN CORPUSCULAR VOLUME (BEAKER) 87.0 fL 79.4-94.8 (test code = 753) MEAN CORPUSCULAR HEMOGLOBIN 26.5 pg 25.6-32.2 (BEAKER) (test code = 751) MEAN CORPUSCULAR HEMOGLOBIN CONC 30.4 GM/DL 32.2-35.5 L (BEAKER) (test code = 752) RED CELL DISTRIBUTION WIDTH 15.6 % 11.7-14.4 H (BEAKER) (test code = 412) PLATELET COUNT (BEAKER) (test 314 K/CU MM 150-450 code = 756) MEAN PLATELET VOLUME (BEAKER) 11.6 fL 9.4-12.3 (test code = 754) NUCLEATED RED BLOOD CELLS 0 /100 WBC 0-0 (BEAKER) (test code = 413) NEUTROPHILS RELATIVE PERCENT 73 % (BEAKER) (test code = 429) LYMPHOCYTES RELATIVE PERCENT 16 % (BEAKER) (test code = 430) MONOCYTES RELATIVE PERCENT 10 % (BEAKER) (test code = 431) EOSINOPHILS RELATIVE PERCENT 1 % (BEAKER) (test code = 432) BASOPHILS RELATIVE PERCENT 0 % (BEAKER) (test code = 437) NEUTROPHILS ABSOLUTE COUNT 9.61 K/ L 1.56-6.13 H (BEAKER) (test code = 670) LYMPHOCYTES ABSOLUTE COUNT 2.09 K/ L 1.18-3.74 (BEAKER) (test code = 414) MONOCYTES ABSOLUTE COUNT (BEAKER) 1.28 K/ L 0.24-0.36 H (test code = 415) EOSINOPHILS ABSOLUTE COUNT 0.08 K/ L 0.04-0.36 (BEAKER) (test code = 416) BASOPHILS ABSOLUTE COUNT (BEAKER) 0.03 K/ L 0.01-0.08 (test code = 417) IMMATURE GRANULOCYTES-RELATIVE 1 % 0-1 PERCENT (BEAKER) (test code = 2801) POCT-GLUCOSE [id number] 22:39:00 Test Item Value Reference Range Interpretation Comments POC-GLUCOSE METER 434 mg/dL 70-110 HH : Notified RN/MD: ([facility]) (test code = TESTED AT [place] [address] 1538) [facility], [address]: Endocrinology Physician/Techni osvaldo ID = [id number] for SP GRIFFIN FOY POCT-GLUCOSE [id number] 16:58:00 Test Item Value Reference Range Interpretation Comments POC-GLUCOSE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 code = 22) Resistant <0 or >1 Meropenem (test Susceptible 0-2 , S code = 34) Resistant <0 or >2 Piperacillin (test Susceptible 0-16 S code = 24) , Resistant <0 or >16 Piperacillin + Susceptible 0-16 S Tazobactam (test , Resistant <0 or code = 29) >16 Tobramycin (test Susceptible 0-4 , S code = 25) Resistant <0 or >4 4+ Normal respiratory derick presentPOCT-GLUCOSE [id number] 11:50:00 Test Item Value Reference Range Interpretation Comments POC-GLUCOSE METER 110 mg/dL 70-110 TESTED AT [place] [address] ([facility]) (test code = PAUL Tanner [facility] 1538) [address] POCT-GLUCOSE [id number] 11:41:00 Test Item Value Reference Range Interpretation Comments POC-GLUCOSE METER 54 mg/dL 70-110 L Notified Ciro sheehan MD (SIMI) (test code = Patien t refused repeat 1537) test/TESTED AT [address] [address] POCT-GLUCOSE [id number] 07:55:00 Test Item Value Reference Range Interpretation Comments POC-GLUCOSE METER 328 mg/dL 70-110 H Notified Ciro Polanco or (SIMI) (test code = Patien t refused repeat 1537) test/TESTED AT [address] [address] BASIC METABOLIC [id number] 06:10:00 Test Item Value Reference Range Interpretation Comments SODIUM (BEAKER) 136 meq/L 136-145 (test code = 381) POTASSIUM (BEAKER) 4.1 meq/L 3.5-5.1 (test code = 379) CHLORIDE (BEAKER) 98 meq/L 98-107 (test code = 382) CO2 (BEAKER) (test 33 meq/L 22-29 H code = 355) BLOOD UREA NITROGEN 25 mg/dL 7-21 H (BEAKER) (test code = 354) CREATININE (BEAKER) 0.84 mg/dL 0.57-1.25 (test code = 358) GLUCOSE RANDOM 497 mg/dL 70-105 HH (BEAKER) (test code = 652) CALCIUM (BEAKER) 8.8 mg/dL 8.4-10.2 (test code = 697) EGFR (BEAKER) (test 99 mL/min/1.73 ESTIMA MAGDALENO GFR IS code = 1092) sq m NOT ACCURATE CREATININE CLEARANCE IN PREDICTING GLOMERULAR FILTRATION RATE . ESTIMATED GFR I S NOT APPLICABLE FOR DIALYSIS PATIEN TS. CBC W/PLT COUNT & AUTO [id number] 05:55:00 Test Item Value Reference Range Interpretation Comments WHITE BLOOD CELL COUNT (BEAKER) 12.9 K/ L 3.5-10.5 H (test code = 775) RED BLOOD CELL COUNT (BEAKER) 3.26 M/ L 3.93-5.22 L (test code = 761) HEMOGLOBIN (BEAKER) (test code = 8.6 GM/DL 11.2-15.7 L 410) HEMATOCRIT (BEAKER) (test code = 29.1 % 34.1-44.9 L 411) MEAN CORPUSCULAR VOLUME (BEAKER) 89.3 fL 79.4-94.8 (test code = 753) MEAN CORPUSCULAR HEMOGLOBIN 26.4 pg 25.6-32.2 (BEAKER) (test code = 751) MEAN CORPUSCULAR HEMOGLOBIN CONC 29.6 GM/DL 32.2-35.5 L (BEAKER) (test code = 752) RED CELL DISTRIBUTION WIDTH 19.4 % 11.7-14.4 H (BEAKER) (test code = 412) PLATELET COUNT (BEAKER) (test 587 K/CU MM 150-450 H code = 756) MEAN PLATELET VOLUME (BEAKER) 10.5 fL 9.4-12.3 (test code = 754) NUCLEATED RED BLOOD CELLS 0 /100 WBC 0-0 (BEAKER) (test code = 413) NEUTROPHILS RELATIVE PERCENT 69 % (BEAKER) (test code = 429) LYMPHOCYTES RELATIVE PERCENT 18 % (BEAKER) (test code = 430) MONOCYTES RELATIVE PERCENT 9 % (BEAKER) (test code = 431) EOSINOPHILS RELATIVE PERCENT 4 % (BEAKER) (test code = 432) BASOPHILS RELATIVE PERCENT 0 % (BEAKER) (test code = 437) NEUTROPHILS ABSOLUTE COUNT 8.91 K/ L 1.56-6.13 H (BEAKER) (test code = 670) LYMPHOCYTES ABSOLUTE COUNT 2.26 K/ L 1.18-3.74 (BEAKER) (test code = 414) MONOCYTES ABSOLUTE COUNT (BEAKER) 1.10 K/ L 0.24-0.36 H (test code = 415) EOSINOPHILS ABSOLUTE COUNT 0.53 K/ L 0.04-0.36 H (BEAKER) (test code = 416) BASOPHILS ABSOLUTE COUNT (BEAKER) 0.02 K/ L 0.01-0.08 (test code = 417) IMMATURE GRANULOCYTES-RELATIVE 1 % 0-1 PERCENT (BEAKER) (test code = 2801) POCT-GLUCOSE [id number] 21:42:00 Test Item Value Reference Range Interpretation Comments POC-GLUCOSE METER 225 mg/dL 70-110 H TESTED AT [place] [address] ([facility]) (test code = PAUL Tanner [place] [address]) [address] POCT-GLUCOSE [id number] 17:33:00 Test Item Value Reference Range Interpretation Comments POC-GLUCOSE METER 359 mg/dL 70-110 H Notified R Collin STAPLETON/TESTED ([facility]) (test code = AT [place] [address]) [facility] [address] POCT-GLUCOSE [id number] 11:57:00 Test Item Value Reference Range Interpretation Comments POC-GLUCOSE METER 330 mg/dL 70-110 H Notified Ciro Polanco MD/TESTED ([facility]) (test code = AT [place] [address]) [facility] [address] POCT-GLUCOSE [id number] 08:56:00 Test Item Value Reference Range Interpretation Comments POC-GLUCOSE METER 175 mg/dL 70-110 H TESTED AT [place] [address] (BEAKER) (test code = [place] 1538) [address] BASIC METABOLIC [id number] 07:29:00 Test Item Value Reference Range Interpretation Comments SODIUM (BEAKER) 133 meq/L 136-145 L (test code = 381) POTASSIUM (BEAKER) 4.5 meq/L 3.5-5.1 (test code = 379) CHLORIDE (BEAKER) 95 meq/L 98-107 L (test code = 382) CO2 (BEAKER) (test 29 meq/L 22-29 code = 355) BLOOD UREA NITROGEN 26 mg/dL 7-21 H (BEAKER) (test code = 354) CREATININE (BEAKER) 0.84 mg/dL 0.57-1.25 (test code = 358) GLUCOSE RANDOM 464 mg/dL 70-105 HH (BEAKER) (test code = 652) CALCIUM (BEAKER) 8.3 mg/dL 8.4-10.2 L (test code = 697) EGFR (BEAKER) (test 99 mL/min/1.73 ESTIMA MAGDALENO GFR IS code = 1092) sq m NOT ACCURATE CREATININE CLEARANCE IN PREDICTING GLOMERULAR FILTRATION RATE . ESTIMATED GFR I S NOT APPLICABLE FOR DIALYSIS PATIEN TS. CBC W/PLT COUNT & AUTO [id number] 05:17:00 Test Item Value Reference Range Interpretation Comments WHITE BLOOD CELL COUNT (BEAKER) 12.9 K/ L 3.5-10.5 H (test code = 775) RED BLOOD CELL COUNT (BEAKER) 3.08 M/ L 3.93-5.22 L (test code = 761) HEMOGLOBIN (BEAKER) (test code = 8.1 GM/DL 11.2-15.7 L 410) HEMATOCRIT (BEAKER) (test code = 27.4 % 34.1-44.9 L 411) MEAN CORPUSCULAR VOLUME (BEAKER) 89.0 fL 79.4-94.8 (test code = 753) MEAN CORPUSCULAR HEMOGLOBIN 26.3 pg 25.6-32.2 (BEAKER) (test code = 751) MEAN CORPUSCULAR HEMOGLOBIN CONC 29.6 GM/DL 32.2-35.5 L (BEAKER) (test code = 752) RED CELL DISTRIBUTION WIDTH 19.1 % 11.7-14.4 H (BEAKER) (test code = 412) PLATELET COUNT (BEAKER) (test 586 K/CU MM 150-450 H code = 756) MEAN PLATELET VOLUME (BEAKER) 10.3 fL 9.4-12.3 (test code = 754) NUCLEATED RED BLOOD CELLS 0 /100 WBC 0-0 (BEAKER) (test code = 413) NEUTROPHILS RELATIVE PERCENT 66 % (BEAKER) (test code = 429) LYMPHOCYTES RELATIVE PERCENT 19 % (BEAKER) (test code = 430) MONOCYTES RELATIVE PERCENT 9 % (BEAKER) (test code = 431) EOSINOPHILS RELATIVE PERCENT 5 % (BEAKER) (test code = 432) BASOPHILS RELATIVE PERCENT 0 % (BEAKER) (test code = 437) NEUTROPHILS ABSOLUTE COUNT 8.54 K/ L 1.56-6.13 H (BEAKER) (test code = 670) LYMPHOCYTES ABSOLUTE COUNT 2.44 K/ L 1.18-3.74 (BEAKER) (test code = 414) MONOCYTES ABSOLUTE COUNT (BEAKER) 1.18 K/ L 0.24-0.36 H (test code = 415) EOSINOPHILS ABSOLUTE COUNT 0.68 K/ L 0.04-0.36 H (BEAKER) (test code = 416) BASOPHILS ABSOLUTE COUNT (BEAKER) 0.02 K/ L 0.01-0.08 (test code = 417) IMMATURE GRANULOCYTES-RELATIVE 1 % 0-1 PERCENT (BEAKER) (test code = 2801) POCT-GLUCOSE [id number] 22:08:00 Test Item Value Reference Range Interpretation Comments POC-GLUCOSE METER 366 mg/dL 70-110 H TESTED AT [place] [address] ([facility]) (test code = [place] 1538) [id number] POCT-GLUCOSE [id number] 17:29:00 Test Item Value Reference Range Interpretation Comments POC-GLUCOSE METER 262 mg/dL 70-110 H TESTED AT [place] [address] (BEAKER) (test code = [place] 1538) [id number] POCT-GLUCOSE [id number] 12:20:00 Test Item Value Reference Range Interpretation Comments POC-GLUCOSE METER 229 mg/dL 70-110 H TESTED AT [place] [address] (BEAKER) (test code = PAUL [place] 1538) [id number] POCT-GLUCOSE [id number] 08:38:00 Test Item Value Reference Range Interpretation Comments POC-GLUCOSE METER 111 mg/dL 70-[address] [facility] [address] (BEAKER) (test code = [place] 1538) [id number] BASIC METABOLIC [id number] 06:29:00 Test Item Value Reference Range Interpretation Comments SODIUM (BEAKER) 141 meq/L 136-145 (test code = 381) POTASSIUM (BEAKER) 3.9 meq/L 3.5-5.1 (test code = 379) CHLORIDE (BEAKER) 100 meq/L 98-107 (test code = 382) CO2 (BEAKER) (test 35 meq/L 22-29 H code = 355) BLOOD UREA NITROGEN 19 mg/dL 7-21 (BEAKER) (test code = 354) CREATININE (BEAKER) 0.60 mg/dL 0.57-1.25 (test code = 358) GLUCOSE RANDOM 64 mg/dL 70-105 L (BEAKER) (test code = 652) CALCIUM (BEAKER) 8.5 mg/dL 8.4-10.2 (test code = 697) EGFR (BEAKER) (test 146 mL/min/1.73 ESTIM ATED GFR IS code = 1092) sq m NOT ACCURATE CREATININE CLEARANCE IN PREDICTING GLOMERULAR FILTRATION RATE . ESTIMATED GFR I S NOT APPLICABLE FOR DIALYSIS PATIEN TS. CBC W/PLT COUNT & AUTO [id number] 05:17:00 Test Item Value Reference Range Interpretation Comments WHITE BLOOD CELL COUNT (BEAKER) 15.0 K/ L 3.5-10.5 H (test code = 775) RED BLOOD CELL COUNT (BEAKER) 3.18 M/ L 3.93-5.22 L (test code = 761) HEMOGLOBIN (BEAKER) (test code = 8.4 GM/DL 11.2-15.7 L 410) HEMATOCRIT (BEAKER) (test code = 28.4 % 34.1-44.9 L 411) MEAN CORPUSCULAR VOLUME (BEAKER) 89.3 fL 79.4-94.8 (test code = 753) MEAN CORPUSCULAR HEMOGLOBIN 26.4 pg 25.6-32.2 (BEAKER) (test code = 751) MEAN CORPUSCULAR HEMOGLOBIN CONC 29.6 GM/DL 32.2-35.5 L (BEAKER) (test code = 752) RED CELL DISTRIBUTION WIDTH 18.6 % 11.7-14.4 H (BEAKER) (test code = 412) PLATELET COUNT (BEAKER) (test 556 K/CU MM 150-450 H code = 756) MEAN PLATELET VOLUME (BEAKER) 10.3 fL 9.4-12.3 (test code = 754) NUCLEATED RED BLOOD CELLS 0 /100 WBC 0-0 (BEAKER) (test code = 413) NEUTROPHILS RELATIVE PERCENT 66 % (BEAKER) (test code = 429) LYMPHOCYTES RELATIVE PERCENT 20 % (BEAKER) (test code = 430) MONOCYTES RELATIVE PERCENT 9 % (BEAKER) (test code = 431) EOSINOPHILS RELATIVE PERCENT 5 % (BEAKER) (test code = 432) BASOPHILS RELATIVE PERCENT 0 % (BEAKER) (test code = 437) NEUTROPHILS ABSOLUTE COUNT 9.85 K/ L 1.56-6.13 H (BEAKER) (test code = 670) LYMPHOCYTES ABSOLUTE COUNT 2.97 K/ L 1.18-3.74 (BEAKER) (test code = 414) MONOCYTES ABSOLUTE COUNT (BEAKER) 1.30 K/ L 0.24-0.36 H (test code = 415) EOSINOPHILS ABSOLUTE COUNT 0.71 K/ L 0.04-0.36 H (BEAKER) (test code = 416) BASOPHILS ABSOLUTE COUNT (BEAKER) 0.02 K/ L 0.01-0.08 (test code = 417) IMMATURE GRANULOCYTES-RELATIVE 1 % 0-1 PERCENT (BEAKER) (test code = 2801) POCT-GLUCOSE [id number] 22:09:00 Test Item Value Reference Range Interpretation Comments POC-GLUCOSE METER 209 mg/dL 70-110 H TESTED AT [place] [address] (BEAKER) (test code = PAUL Tanner [facility] 1538) [address] POCT-GLUCOSE [id number] 17:02:00 Test Item Value Reference Range Interpretation Comments POC-GLUCOSE METER > mg/dL 70-110 HH OUTSIDE [place] ASURING (BEAKER) (test code RANGENot ified RN or MD = 1538) Patient refused repeat test/TESTED AT [facility] [address] [place] [address] POCT-GLUCOSE [id number] 12:51:00 Test Item Value Reference Range Interpretation Comments POC-GLUCOSE METER 190 mg/dL 70-110 H TESTED AT [place] [id number] ([facility]) (test code = PAUL Tanner [facility] 1538) [address] POCT-GLUCOSE [id number] 12:07:00 Test Item Value Reference Range Interpretation Comments POC-GLUCOSE METER 34 mg/dL 70-110 LL Notified Ciro Polanco MD/TESTED AT ([facility]) (test code = [place] [address] [place] 1538) [facility] [address] BASIC METABOLIC [id number] 08:24:00 Test Item Value Reference Range Interpretation Comments SODIUM (BEAKER) 135 meq/L 136-145 L (test code = 381) POTASSIUM (BEAKER) 4.5 meq/L 3.5-5.1 (test code = 379) CHLORIDE (BEAKER) 94 meq/L 98-107 L (test code = 382) CO2 (BEAKER) (test 35 meq/L 22-29 H code = 355) BLOOD UREA NITROGEN 29 mg/dL 7-21 H (BEAKER) (test code = 354) CREATININE (BEAKER) 0.87 mg/dL 0.57-1.25 (test code = 358) GLUCOSE RANDOM 474 mg/dL 70-105 HH (BEAKER) (test code = 652) CALCIUM (BEAKER) 8.5 mg/dL 8.4-10.2 (test code = 697) EGFR (BEAKER) (test 95 mL/min/1.73 ESTIMA MAGDALENO GFR IS code = 1092) sq m NOT ACCURATE CREATININE CLEARANCE IN PREDICTING GLOMERULAR FILTRATION RATE . ESTIMATED GFR I S NOT APPLICABLE FOR DIALYSIS PATIEN TS. POCT-GLUCOSE [id number] 08:13:00 Test Item Value Reference Range Interpretation Comments POC-GLUCOSE METER 325 mg/dL 70-[address] [facility] 6720 ([facility]) (test code = PAUL Tanner [facility] 1538) [address] CBC W/PLT COUNT & AUTO [id number] 06:45:00 Test Item Value Reference Range Interpretation Comments WHITE BLOOD CELL COUNT (BEAKER) 14.4 K/ L 3.5-10.5 H (test code = 775) RED BLOOD CELL COUNT (BEAKER) 3.09 M/ L 3.93-5.22 L (test code = 761) HEMOGLOBIN (BEAKER) (test code = 8.1 GM/DL 11.2-15.7 L 410) HEMATOCRIT (BEAKER) (test code = 27.9 % 34.1-44.9 L 411) MEAN CORPUSCULAR VOLUME (BEAKER) 90.3 fL 79.4-94.8 (test code = 753) MEAN CORPUSCULAR HEMOGLOBIN 26.2 pg 25.6-32.2 (BEAKER) (test code = 751) MEAN CORPUSCULAR HEMOGLOBIN CONC 29.0 GM/DL 32.2-35.5 L (BEAKER) (test code = 752) RED CELL DISTRIBUTION WIDTH 18.6 % 11.7-14.4 H (BEAKER) (test code = 412) PLATELET COUNT (BEAKER) (test 505 K/CU MM 150-450 H code = 756) MEAN PLATELET VOLUME (BEAKER) 10.9 fL 9.4-12.3 (test code = 754) NUCLEATED RED BLOOD CELLS 0 /100 WBC 0-0 (BEAKER) (test code = 413) NEUTROPHILS RELATIVE PERCENT 71 % (BEAKER) (test code = 429) LYMPHOCYTES RELATIVE PERCENT 17 % (BEAKER) (test code = 430) MONOCYTES RELATIVE PERCENT 7 % (BEAKER) (test code = 431) EOSINOPHILS RELATIVE PERCENT 4 % (BEAKER) (test code = 432) BASOPHILS RELATIVE PERCENT 0 % (BEAKER) (test code = 437) NEUTROPHILS ABSOLUTE COUNT 10.16 K/ L 1.56-6.13 H (BEAKER) (test code = 670) LYMPHOCYTES ABSOLUTE COUNT 2.50 K/ L 1.18-3.74 (BEAKER) (test code = 414) MONOCYTES ABSOLUTE COUNT (BEAKER) 1.02 K/ L 0.24-0.36 H (test code = 415) EOSINOPHILS ABSOLUTE COUNT 0.58 K/ L 0.04-0.36 H (BEAKER) (test code = 416) BASOPHILS ABSOLUTE COUNT (BEAKER) 0.02 K/ L 0.01-0.08 (test code = 417) IMMATURE GRANULOCYTES-RELATIVE 1 % 0-1 PERCENT (BEAKER) (test code = 2801) POCT-GLUCOSE [id number] 21:38:00 Test Item Value Reference Range Interpretation Comments POC-GLUCOSE METER 226 mg/dL 70-[address] [facility] 6720 (BEAKER) (test code = [place] 1538) [address] [id number] 19:16:00 Test Item Value Reference Range Interpretation Comments FERRITIN (BEAKER) (test code = 361) 176 ng/mL 5-275 IRON, TIBC, % SAT. (WITHOUT FERRITIN)[id number] 18:56:00 Test Item Value Reference Range Interpretation Comments IRON (BEAKER) (test code = 547) 38.0 ug/dL 40.0-160.0 L TOTAL IRON BINDING CAPACITY 359 ug/dL 250-450 (BEAKER) (test code = 769) IRON % SATURATION (2) (BEAKER) 11 % 20-55 L (test code = 2590) POCT-GLUCOSE [id number] 18:25:00 Test Item Value Reference Range Interpretation Comments POC-GLUCOSE METER > mg/dL 70-110 HH OUTSIDE [place] ASURING (BEAKER) (test code = RANGEB luz tested Mother 1538) ID used/TESTED AT [address] [address] POCT-GLUCOSE [id number] 11:48:00 Test Item Value Reference Range Interpretation Comments POC-GLUCOSE METER 110 mg/dL 70-110 TESTED AT [place] [address] (BEAKER) (test code = [facility] Ciro [facility] 1538) [address] POCT-GLUCOSE [id number] 09:17:00 Test Item Value Reference Range Interpretation Comments POC-GLUCOSE METER 138 mg/dL 70-110 H TESTED AT [place] [address] (BEAKER) (test code = [facility] Ciro [facility] 1538) [address] POCT-GLUCOSE [id number] 06:11:00 Test Item Value Reference Range Interpretation Comments POC-GLUCOSE METER 128 mg/dL 70-110 H TESTED AT [place] [address] (BEAKER) (test code = [facility] 1538) [address] BASIC METABOLIC [id number] 03:40:00 Test Item Value Reference Range Interpretation Comments SODIUM (BEAKER) 141 meq/L 136-145 (test code = 381) POTASSIUM (BEAKER) 4.1 meq/L 3.5-5.1 (test code = 379) CHLORIDE (BEAKER) 97 meq/L 98-107 L (test code = 382) CO2 (BEAKER) (test 36 meq/L 22-29 H code = 355) BLOOD UREA NITROGEN 23 mg/dL 7-21 H (BEAKER) (test code = 354) CREATININE (BEAKER) 0.70 mg/dL 0.57-1.25 (test code = 358) GLUCOSE RANDOM 238 mg/dL 70-105 H (BEAKER) (test code = 652) CALCIUM (BEAKER) 8.1 mg/dL 8.4-10.2 L (test code = 697) EGFR (BEAKER) (test 123 mL/min/1.73 ESTIM ATED GFR IS code = 1092) sq m NOT ACCURATE CREATININE CLEARANCE IN PREDICTING GLOMERULAR FILTRATION RATE . ESTIMATED GFR I S NOT APPLICABLE FOR DIALYSIS PATIEN TS. CBC W/PLT COUNT & AUTO [id number] 03:26:00 Test Item Value Reference Range Interpretation Comments WHITE BLOOD CELL COUNT (BEAKER) 18.2 K/ L 3.5-10.5 H (test code = 775) RED BLOOD CELL COUNT (BEAKER) 2.93 M/ L 3.93-5.22 L (test code = 761) HEMOGLOBIN (BEAKER) (test code = 7.7 GM/DL 11.2-15.7 L 410) HEMATOCRIT (BEAKER) (test code = 25.6 % 34.1-44.9 L 411) MEAN CORPUSCULAR VOLUME (BEAKER) 87.4 fL 79.4-94.8 (test code = 753) MEAN CORPUSCULAR HEMOGLOBIN 26.3 pg 25.6-32.2 (BEAKER) (test code = 751) MEAN CORPUSCULAR HEMOGLOBIN CONC 30.1 GM/DL 32.2-35.5 L (BEAKER) (test code = 752) RED CELL DISTRIBUTION WIDTH 18.1 % 11.7-14.4 H (BEAKER) (test code = 412) PLATELET COUNT (BEAKER) (test 449 K/CU MM 150-450 code = 756) MEAN PLATELET VOLUME (BEAKER) 10.4 fL 9.4-12.3 (test code = 754) NUCLEATED RED BLOOD CELLS 0 /100 WBC 0-0 (BEAKER) (test code = 413) NEUTROPHILS RELATIVE PERCENT 79 % (BEAKER) (test code = 429) LYMPHOCYTES RELATIVE PERCENT 12 % (BEAKER) (test code = 430) MONOCYTES RELATIVE PERCENT 6 % (BEAKER) (test code = 431) EOSINOPHILS RELATIVE PERCENT 2 % (BEAKER) (test code = 432) BASOPHILS RELATIVE PERCENT 0 % (BEAKER) (test code = 437) NEUTROPHILS ABSOLUTE COUNT 14.34 K/ L 1.56-6.13 H (BEAKER) (test code = 670) LYMPHOCYTES ABSOLUTE COUNT 2.12 K/ L 1.18-3.74 (BEAKER) (test code = 414) MONOCYTES ABSOLUTE COUNT (BEAKER) 1.08 K/ L 0.24-0.36 H (test code = 415) EOSINOPHILS ABSOLUTE COUNT 0.40 K/ L 0.04-0.36 H (BEAKER) (test code = 416) BASOPHILS ABSOLUTE COUNT (BEAKER) 0.02 K/ L 0.01-0.08 (test code = 417) IMMATURE GRANULOCYTES-RELATIVE 1 % 0-1 PERCENT ([facility]) (test code = 2801) POCT-GLUCOSE [id number] 00:12:00 Test Item Value Reference Range Interpretation Comments POC-GLUCOSE METER 286 mg/dL 70-110 H TESTED AT [place] [address] ([facility]) (test code = PAUL Tanner [facility] 1538) [address] POCT-GLUCOSE [id number] 21:36:00 Test Item Value Reference Range Interpretation Comments POC-GLUCOSE METER 241 mg/dL 70-110 H TESTED AT [place] [address] ([facility]) (test code = PAUL Tanner [facility] 1538) [id number] POCT-GLUCOSE [id number] 18:30:00 Test Item Value Reference Range Interpretation Comments POC-GLUCOSE METER 426 mg/dL 70-110 HH TESTED AT [place] [address] ([facility]) (test code = PAUL Tanner [facility] 1538) [address] POCT-GLUCOSE [id number] 16:29:00 Test Item Value Reference Range Interpretation Comments POC-GLUCOSE METER > mg/dL 70-110 HH OUTSIDE [place] ASUR[place] ([facility]) (test code RANGETES MAGDALENO AT [place] [address] = 1538) [facility] [address] POCT-GLUCOSE [id number] 12:13:00 Test Item Value Reference Range Interpretation Comments POC-GLUCOSE METER 69 mg/dL 70-110 L Notified R Collin STAPLETON/TESTED AT ([facility]) (test code = [place] [address]2468) [facility] [address] 0 BASIC METABOLIC [id number] 08:30:00 Test Item Value Reference Range Interpretation Comments SODIUM (BEAKER) 142 meq/L 136-145 (test code = 381) POTASSIUM (BEAKER) 4.0 meq/L 3.5-5.1 (test code = 379) CHLORIDE (BEAKER) 91 meq/L 98-107 L (test code = 382) CO2 (BEAKER) (test 42 meq/L 22-29 HH code = 355) BLOOD UREA NITROGEN 22 mg/dL 7-21 H (BEAKER) (test code = 354) CREATININE (BEAKER) 0.70 mg/dL 0.57-1.25 (test code = 358) GLUCOSE RANDOM 137 mg/dL 70-105 H (BEAKER) (test code = 652) CALCIUM (BEAKER) 8.4 mg/dL 8.4-10.2 (test code = 697) EGFR (BEAKER) (test 123 mL/min/1.73 ESTIM ATED GFR IS code = 1092) sq m NOT ACCURATE CREATININE CLEARANCE IN PREDICTING GLOMERULAR FILTRATION RATE . ESTIMATED GFR I S NOT APPLICABLE FOR DIALYSIS PATIEN TS. CBC W/PLT COUNT & AUTO [id number] 07:20:00 Test Item Value Reference Range Interpretation Comments WHITE BLOOD CELL COUNT (BEAKER) 17.0 K/ L 3.5-10.5 H (test code = 775) RED BLOOD CELL COUNT (BEAKER) 3.43 M/ L 3.93-5.22 L (test code = 761) HEMOGLOBIN (BEAKER) (test code = 8.9 GM/DL 11.2-15.7 L 410) HEMATOCRIT (BEAKER) (test code = 30.3 % 34.1-44.9 L 411) MEAN CORPUSCULAR VOLUME (BEAKER) 88.3 fL 79.4-94.8 (test code = 753) MEAN CORPUSCULAR HEMOGLOBIN 25.9 pg 25.6-32.2 (BEAKER) (test code = 751) MEAN CORPUSCULAR HEMOGLOBIN CONC 29.4 GM/DL 32.2-35.5 L (BEAKER) (test code = 752) RED CELL DISTRIBUTION WIDTH 17.6 % 11.7-14.4 H (BEAKER) (test code = 412) PLATELET COUNT (BEAKER) (test 490 K/CU MM 150-450 H code = 756) MEAN PLATELET VOLUME (BEAKER) 10.4 fL 9.4-12.3 (test code = 754) NUCLEATED RED BLOOD CELLS 0 /100 WBC 0-0 (BEAKER) (test code = 413) NEUTROPHILS RELATIVE PERCENT 71 % (BEAKER) (test code = 429) LYMPHOCYTES RELATIVE PERCENT 18 % (BEAKER) (test code = 430) MONOCYTES RELATIVE PERCENT 6 % (BEAKER) (test code = 431) EOSINOPHILS RELATIVE PERCENT 4 % (BEAKER) (test code = 432) BASOPHILS RELATIVE PERCENT 0 % (BEAKER) (test code = 437) NEUTROPHILS ABSOLUTE COUNT 12.07 K/ L 1.56-6.13 H (BEAKER) (test code = 670) LYMPHOCYTES ABSOLUTE COUNT 3.00 K/ L 1.18-3.74 (BEAKER) (test code = 414) MONOCYTES ABSOLUTE COUNT (BEAKER) 1.08 K/ L 0.24-0.36 H (test code = 415) EOSINOPHILS ABSOLUTE COUNT 0.69 K/ L 0.04-0.36 H (BEAKER) (test code = 416) BASOPHILS ABSOLUTE COUNT (BEAKER) 0.01 K/ L 0.01-0.08 (test code = 417) IMMATURE GRANULOCYTES-RELATIVE 1 % 0-1 PERCENT (BEAKER) (test code = 2801) POCT-GLUCOSE [id number] 06:18:00 Test Item Value Reference Range Interpretation Comments POC-GLUCOSE METER 174 mg/dL 70-110 H TESTED AT [place] [address] ([facility]) (test code = [facility] 1538) [address] POCT-GLUCOSE [id number] 00:56:00 Test Item Value Reference Range Interpretation Comments POC-GLUCOSE METER 398 mg/dL 70-110 H TESTED AT [place] [address] ([facility]) (test code = [facility] 1538) [address] POCT-GLUCOSE [id number] 21:15:00 Test Item Value Reference Range Interpretation Comments POC-GLUCOSE METER 85 mg/dL 70-110 TESTED AT [place] [address] ([facility]) (test code = [facility] [address] 1538) POCT-GLUCOSE [id number] 17:21:00 Test Item Value Reference Range Interpretation Comments POC-GLUCOSE METER 196 mg/dL 70-110 H TESTED AT [place] [address] ([facility]) (test code = PAUL Tanner [facility] 1538) [address] POCT-GLUCOSE [id number] 15:31:00 Test Item Value Reference Range Interpretation Comments POC-GLUCOSE METER 428 mg/dL 70-110 HH TESTED AT [place] [address] ([facility]) (test code = PAUL Tanner [facility] 1538) [address] POCT-GLUCOSE [id number] 12:04:00 Test Item Value Reference Range Interpretation Comments POC-GLUCOSE METER 81 mg/dL 70-110 TESTED AT [place] [address] ([facility]) (test code = PAUL Tanner [facility] [address] 1538) BLOOD GAS, [id number] 09:46:00 Test Item Value Reference Range Interpretation Comments PH VENOUS (BEAKER) (test code = 7.41 7.32-7.42 701) PCO2 VENOUS (BEAKER) (test code = 72 mmHg 41-51 HH 755) PO2 VENOUS (BEAKER) (test code = 56 mmHg 25-40 H 702) O2 SATURATION VENOUS (BEAKER) 87.7 % 40.0-70.0 H (test code = 703) HCO3 VENOUS (BEAKER) (test code = 45 mmol/L 21-29 HH 705) BASE EXCESS VENOUS (BEAKER) (test 17.9 mmol/L -2.0-3.0 H code = 704) PATIENT TEMPERATURE (BEAKER) 37.0 C (test code = 1818) FIO2 (BEAKER) (test code = 1819) 100.0 % POCT-GLUCOSE [id number] 09:13:00 Test Item Value Reference Range Interpretation Comments POC-GLUCOSE METER 109 mg/dL 70-110 TESTED AT [place] [address] ([facility]) (test code = PAUL Tanner [facility] 1538) [address] POCT-GLUCOSE [id number] 08:51:00 Test Item Value Reference Range Interpretation Comments POC-GLUCOSE METER 69 mg/dL 70-110 L Pérezied Ciro Polanco MD/TESTED AT ([facility]) (test code = [address] 1538) [facility] [address] BASIC METABOLIC [id number] 06:32:00 Test Item Value Reference Range Interpretation Comments SODIUM (BEAKER) 137 meq/L 136-145 (test code = 381) POTASSIUM (BEAKER) 4.5 meq/L 3.5-5.1 (test code = 379) CHLORIDE (BEAKER) 91 meq/L 98-107 L (test code = 382) CO2 (BEAKER) (test 40 meq/L 22-29 HH code = 355) BLOOD UREA NITROGEN 17 mg/dL 7-21 (BEAKER) (test code = 354) CREATININE (BEAKER) 0.68 mg/dL 0.57-1.25 (test code = 358) GLUCOSE RANDOM 201 mg/dL 70-105 H (BEAKER) (test code = 652) CALCIUM (BEAKER) 8.2 mg/dL 8.4-10.2 L (test code = 697) EGFR (BEAKER) (test 127 mL/min/1.73 ESTIM ATED GFR IS code = 1092) sq m NOT ACCURATE CREATININE CLEARANCE IN PREDICTING GLOMERULAR FILTRATION RATE . ESTIMATED GFR I S NOT APPLICABLE FOR DIALYSIS PATIEN TS. CBC W/PLT COUNT & AUTO [id number] 05:59:00 Test Item Value Reference Range Interpretation Comments WHITE BLOOD CELL COUNT (BEAKER) 18.4 K/ L 3.5-10.5 H (test code = 775) RED BLOOD CELL COUNT (BEAKER) 3.19 M/ L 3.93-5.22 L (test code = 761) HEMOGLOBIN (BEAKER) (test code = 8.4 GM/DL 11.2-15.7 L 410) HEMATOCRIT (BEAKER) (test code = 27.9 % 34.1-44.9 L 411) MEAN CORPUSCULAR VOLUME (BEAKER) 87.5 fL 79.4-94.8 (test code = 753) MEAN CORPUSCULAR HEMOGLOBIN 26.3 pg 25.6-32.2 (BEAKER) (test code = 751) MEAN CORPUSCULAR HEMOGLOBIN CONC 30.1 GM/DL 32.2-35.5 L (BEAKER) (test code = 752) RED CELL DISTRIBUTION WIDTH 16.9 % 11.7-14.4 H (BEAKER) (test code = 412) PLATELET COUNT (BEAKER) (test 408 K/CU MM 150-450 code = 756) MEAN PLATELET VOLUME (BEAKER) 10.9 fL 9.4-12.3 (test code = 754) NUCLEATED RED BLOOD CELLS 0 /100 WBC 0-0 (BEAKER) (test code = 413) NEUTROPHILS RELATIVE PERCENT 75 % (BEAKER) (test code = 429) LYMPHOCYTES RELATIVE PERCENT 15 % (BEAKER) (test code = 430) MONOCYTES RELATIVE PERCENT 5 % (BEAKER) (test code = 431) EOSINOPHILS RELATIVE PERCENT 3 % (BEAKER) (test code = 432) BASOPHILS RELATIVE PERCENT 0 % (BEAKER) (test code = 437) NEUTROPHILS ABSOLUTE COUNT 13.84 K/ L 1.56-6.13 H (BEAKER) (test code = 670) LYMPHOCYTES ABSOLUTE COUNT 2.72 K/ L 1.18-3.74 (BEAKER) (test code = 414) MONOCYTES ABSOLUTE COUNT (BEAKER) 1.00 K/ L 0.24-0.36 H (test code = 415) EOSINOPHILS ABSOLUTE COUNT 0.63 K/ L 0.04-0.36 H (BEAKER) (test code = 416) BASOPHILS ABSOLUTE COUNT (BEAKER) 0.02 K/ L 0.01-0.08 (test code = 417) IMMATURE GRANULOCYTES-RELATIVE 1 % 0-1 PERCENT (BEAKER) (test code = 2801) POCT-GLUCOSE [id number] 21:54:00 Test Item Value Reference Range Interpretation Comments POC-GLUCOSE METER 175 mg/dL 70-110 H TESTED AT [place] [address] ([facility]) (test code = [facility] Ciro [facility] 1538) [address] POCT-GLUCOSE [id number] 17:41:00 Test Item Value Reference Range Interpretation Comments POC-GLUCOSE METER 391 mg/dL 70-110 H Notified R N or ([facility]) (test code = Adelia cooney refused repeat 1538) test/TESTED AT [place] [address] [address] [facility] [address] POCT-GLUCOSE [id number] 12:40:00 Test Item Value Reference Range Interpretation Comments POC-GLUCOSE METER 104 mg/dL 70-110 TESTED AT [place] [address] ([facility]) (test code = [facility] Ciro [facility] 1538) [id number] POCT-GLUCOSE [id number] 09:09:00 Test Item Value Reference Range Interpretation Comments POC-GLUCOSE METER 74 mg/dL 70-110 TESTED AT [place] [address] ([facility]) (test code = [facility] Ciro [facility] [id number] 1538) BASIC METABOLIC [id number] 06:42:00 Test Item Value Reference Range Interpretation Comments SODIUM (BEAKER) 139 meq/L 136-145 (test code = 381) POTASSIUM (BEAKER) 4.0 meq/L 3.5-5.1 Specimen slightly (test code = 379) hemolyzed CHLORIDE (BEAKER) 95 meq/L 98-107 L (test code = 382) CO2 (BEAKER) (test 38 meq/L 22-29 H code = 355) BLOOD UREA NITROGEN 12 mg/dL 7-21 (BEAKER) (test code = 354) CREATININE (BEAKER) 0.66 mg/dL 0.57-1.25 Specimen slightly (test code = 358) hemolyzed GLUCOSE RANDOM 78 mg/dL 70-105 (BEAKER) (test code = 652) CALCIUM (BEAKER) 8.2 mg/dL 8.4-10.2 L (test code = 697) EGFR (BEAKER) (test 131 mL/min/1.73 ESTIM ATED GFR IS code = 1092) sq m NOT ACCURATE CREATININE CLEARANCE IN PREDICTING GLOMERULAR FILTRATION RATE . ESTIMATED GFR I S NOT APPLICABLE FOR DIALYSIS PATIEN TS. LACTIC ACID, [id number] 06:34:00 Test Item Value Reference Range Interpretation Comments LACTATE BLOOD VENOUS (2) (BEAKER) 1.9 mmol/L 0.5-2.2 (test code = 2872) CBC W/PLT COUNT & AUTO [id number] 06:15:00 Test Item Value Reference Range Interpretation Comments WHITE BLOOD CELL COUNT (BEAKER) 18.6 K/ L 3.5-10.5 H (test code = 775) RED BLOOD CELL COUNT (BEAKER) 3.38 M/ L 3.93-5.22 L (test code = 761) HEMOGLOBIN (BEAKER) (test code = 8.7 GM/DL 11.2-15.7 L 410) HEMATOCRIT (BEAKER) (test code = 29.4 % 34.1-44.9 L 411) MEAN CORPUSCULAR VOLUME (BEAKER) 87.0 fL 79.4-94.8 (test code = 753) MEAN CORPUSCULAR HEMOGLOBIN 25.7 pg 25.6-32.2 (BEAKER) (test code = 751) MEAN CORPUSCULAR HEMOGLOBIN CONC 29.6 GM/DL 32.2-35.5 L (BEAKER) (test code = 752) RED CELL DISTRIBUTION WIDTH 16.7 % 11.7-14.4 H (BEAKER) (test code = 412) PLATELET COUNT (BEAKER) (test 407 K/CU MM 150-450 code = 756) MEAN PLATELET VOLUME (BEAKER) 10.4 fL 9.4-12.3 (test code = 754) NUCLEATED RED BLOOD CELLS 0 /100 WBC 0-0 (BEAKER) (test code = 413) NEUTROPHILS RELATIVE PERCENT 79 % (BEAKER) (test code = 429) LYMPHOCYTES RELATIVE PERCENT 12 % (BEAKER) (test code = 430) MONOCYTES RELATIVE PERCENT 5 % (BEAKER) (test code = 431) EOSINOPHILS RELATIVE PERCENT 2 % (BEAKER) (test code = 432) BASOPHILS RELATIVE PERCENT 0 % (BEAKER) (test code = 437) NEUTROPHILS ABSOLUTE COUNT 14.66 K/ L 1.56-6.13 H (BEAKER) (test code = 670) LYMPHOCYTES ABSOLUTE COUNT 2.31 K/ L 1.18-3.74 (BEAKER) (test code = 414) MONOCYTES ABSOLUTE COUNT (BEAKER) 1.00 K/ L 0.24-0.36 H (test code = 415) EOSINOPHILS ABSOLUTE COUNT 0.36 K/ L 0.04-0.36 (BEAKER) (test code = 416) BASOPHILS ABSOLUTE COUNT (BEAKER) 0.01 K/ L 0.01-0.08 (test code = 417) IMMATURE GRANULOCYTES-RELATIVE 2 % 0-1 H PERCENT (BEAKER) (test code = 2801) BLOOD [id number] 02:01:00 Test Item Value Reference Range Interpretation Comments CULTURE (BEAKER) (test No growth in 5 days code = 1095) BLOOD [id number] 02:01:00 Test Item Value Reference Range Interpretation Comments CULTURE (BEAKER) (test No growth in 5 days code = 1095) POCT-GLUCOSE [id number] 22:01:00 Test Item Value Reference Range Interpretation Comments POC-GLUCOSE METER 330 mg/dL 70-110 H Notified R N MD/TESTED (BEAKER) (test code = AT [facility] [address] [facility] 1536) [place] [address] POCT-GLUCOSE [id number] 17:27:00 Test Item Value Reference Range Interpretation Comments POC-GLUCOSE METER 306 mg/dL 70-110 H Notified Ciro Polanco or ([facility]) (test code = Adelia cooney refused repeat 1538) test/TESTED AT [facility] [address] [place] [address] POCT-GLUCOSE [id number] 12:48:00 Test Item Value Reference Range Interpretation Comments POC-GLUCOSE METER 251 mg/dL 70-[address] [facility] [address] (AKER) (test code = [place] 1538) [address] CBC W/PLT COUNT & AUTO [id number] 10:15:00 Test Item Value Reference Range Interpretation Comments WHITE BLOOD CELL COUNT (BEAKER) 17.1 K/ L 3.5-10.5 H (test code = 775) RED BLOOD CELL COUNT (BEAKER) 3.28 M/ L 3.93-5.22 L (test code = 761) HEMOGLOBIN (BEAKER) (test code = 8.6 GM/DL 11.2-15.7 L 410) HEMATOCRIT (BEAKER) (test code = 28.4 % 34.1-44.9 L 411) MEAN CORPUSCULAR VOLUME (BEAKER) 86.6 fL 79.4-94.8 (test code = 753) MEAN CORPUSCULAR HEMOGLOBIN 26.2 pg 25.6-32.2 (BEAKER) (test code = 751) MEAN CORPUSCULAR HEMOGLOBIN CONC 30.3 GM/DL 32.2-35.5 L (BEAKER) (test code = 752) RED CELL DISTRIBUTION WIDTH 16.2 % 11.7-14.4 H (BEAKER) (test code = 412) PLATELET COUNT (BEAKER) (test 394 K/CU MM 150-450 code = 756) MEAN PLATELET VOLUME (BEAKER) 10.5 fL 9.4-12.3 (test code = 754) NUCLEATED RED BLOOD CELLS 0 /100 WBC 0-0 (BEAKER) (test code = 413) (CELLAVISION MANUAL DIFF)2019-04-17 10:15:00 Test Item Value Reference Range Interpretation Comments NEUTROPHILS - REL 81 % (CELLAVISION)(BEAKER) (test code = 2816) LYMPHOCYTES - REL 5 % (CELLAVISION)(BEAKER) (test code = 2817) MONOCYTES - REL 6 % (CELLAVISION)(BEAKER) (test code = 2818) EOSINOPHILS - REL 7 % (CELLAVISION)(BEAKER) (test code = 2819) MYELOCYTES - REL 1 % 0-0 H (CELLAVISION)(BEAKER) (test code = 2822) NEUTROPHILS - ABS 13.85 K/ul 1.56-6.13 H (CELLAVISION)(BEAKER) (test code = 2830) LYMPHOCYTES - ABS 0.86 K/ul 1.18-3.74 L (CELLAVISION)(BEAKER) (test code = 2831) MONOCYTES - ABS 1.03 K/uL 0.24-0.36 H (CELLAVISION)(BEAKER) (test code = 2832) EOSINOPHILS - ABS 1.20 K/uL 0.04-0.36 H (CELLAVISION)(BEAKER) (test code = 2834) MYELOCYTES-ABS 0.17 K/uL 0.00-0.00 H (CELLAVISION)(BEAKER) (test code = 2837) TOTAL COUNTED (BEAKER) (test code 100 = 1351) WBC MORPHOLOGY (BEAKER) (test code Normal = 487) PLT MORPHOLOGY (BEAKER) (test code Normal = 486) HYPOCHROMIA (BEAKER) (test code = 1+ few 963) BASOPHILIC STIPPLING (BEAKER) Present (test code = 473) ARTIFACT (CELLAVISION)(BEAKER) Present (test code = 3432) PLATELET CONCENTRATION Adequate (CELLAVISION)(BEAKER) (test code = 3438) Received comment: User comments: Slide comments:POCT-GLUCOSE [id number] 09:42:00 Test Item Value Reference Range Interpretation Comments POC-GLUCOSE METER 88 mg/dL 70-[address] [facility] 6720 (BEAKER) (test code = [place] [address] 1538) BLOOD GAS, [id number] 08:59:00 Test Item Value Reference Range Interpretation Comments PH VENOUS (BEAKER) (test code = 7.43 7.32-7.42 H 701) PCO2 VENOUS (BEAKER) (test code = 70 mmHg 41-51 HH 755) PO2 VENOUS (BEAKER) (test code = 41 mmHg 25-40 H 702) O2 SATURATION VENOUS (BEAKER) 75.9 % 40.0-70.0 H (test code = 703) HCO3 VENOUS (BEAKER) (test code = 45 mmol/L 21-29 HH 705) BASE EXCESS VENOUS (BEAKER) (test 17.9 mmol/L -2.0-3.0 H code = 704) PATIENT TEMPERATURE (BEAKER) 36.9 C (test code = 1818) FIO2 (BEAKER) (test code = 1819) 32.0 % AFB CULTURE + [id number] 07:47:00 Test Item Value Reference Range Interpretation Comments CULTURE (BEAKER) (test No acid-fast bacilli code = 1095) isolated in 42 days AFB SMEAR (BEAKER) No acid fast bacilli (test code = 994) seen BASIC METABOLIC [id number] 06:21:00 Test Item Value Reference Range Interpretation Comments SODIUM (BEAKER) 139 meq/L 136-145 (test code = 381) POTASSIUM (BEAKER) 3.0 meq/L 3.5-5.1 L (test code = 379) CHLORIDE (BEAKER) 94 meq/L 98-107 L (test code = 382) CO2 (BEAKER) (test 39 meq/L 22-29 H code = 355) BLOOD UREA NITROGEN 11 mg/dL 7-21 (BEAKER) (test code = 354) CREATININE (BEAKER) 0.63 mg/dL 0.57-1.25 (test code = 358) GLUCOSE RANDOM 134 mg/dL 70-105 H (BEAKER) (test code = 652) CALCIUM (BEAKER) 7.9 mg/dL 8.4-10.2 L (test code = 697) EGFR (BEAKER) (test 138 mL/min/1.73 ESTIM ATED GFR IS code = 1092) sq m NOT ACCURATE CREATININE CLEARANCE IN PREDICTING GLOMERULAR FILTRATION RATE . ESTIMATED GFR I S NOT APPLICABLE FOR DIALYSIS PATIEN TS. POCT-GLUCOSE [id number] 21:06:00 Test Item Value Reference Range Interpretation Comments POC-GLUCOSE METER 351 mg/dL 70-[address] [facility] 6720 (BEAKER) (test code = [place] 1538) [address] POCT-GLUCOSE [id number] 17:43:00 Test Item Value Reference Range Interpretation Comments POC-GLUCOSE METER > mg/dL 70-110 HH OUTSIDE ME ASURING (BEAKER) (test code = RANGEW [facility] Repeat 1538) Test/TESTED AT [facility] 67[address] [facility] [address] POCT-GLUCOSE [id number] 12:03:00 Test Item Value Reference Range Interpretation Comments POC-GLUCOSE METER 370 mg/dL 70-110 H Will Repea t Test/TESTED (BEAKER) (test code = AT [facility] 67[address] [facility] 1538) [facility] [address] 0 POCT-GLUCOSE [id number] 09:33:00 Test Item Value Reference Range Interpretation Comments POC-GLUCOSE METER 243 mg/dL 70-[address] [facility] 6720 ([facility]) (test code = [place] R [facility] 1538) [id number] CBC W/PLT COUNT & AUTO [id number] 07:52:00 Test Item Value Reference Range Interpretation Comments WHITE BLOOD CELL COUNT (BEAKER) 17.7 K/ L 3.5-10.5 H (test code = 775) RED BLOOD CELL COUNT (BEAKER) 3.15 M/ L 3.93-5.22 L (test code = 761) HEMOGLOBIN (BEAKER) (test code = 8.2 GM/DL 11.2-15.7 L 410) HEMATOCRIT (BEAKER) (test code = 27.1 % 34.1-44.9 L 411) MEAN CORPUSCULAR VOLUME (BEAKER) 86.0 fL 79.4-94.8 (test code = 753) MEAN CORPUSCULAR HEMOGLOBIN 26.0 pg 25.6-32.2 (BEAKER) (test code = 751) MEAN CORPUSCULAR HEMOGLOBIN CONC 30.3 GM/DL 32.2-35.5 L (BEAKER) (test code = 752) RED CELL DISTRIBUTION WIDTH 16.4 % 11.7-14.4 H (BEAKER) (test code = 412) PLATELET COUNT (BEAKER) (test 389 K/CU MM 150-450 code = 756) MEAN PLATELET VOLUME (BEAKER) 10.3 fL 9.4-12.3 (test code = 754) NUCLEATED RED BLOOD CELLS 0 /100 WBC 0-0 (BEAKER) (test code = 413) (CELLAVISION MANUAL DIFF)2019-04-16 07:52:00 Test Item Value Reference Range Interpretation Comments NEUTROPHILS - REL 82 % (CELLAVISION)(BEAKER) (test code = 2816) LYMPHOCYTES - REL 9 % (CELLAVISION)(BEAKER) (test code = 2817) MONOCYTES - REL 7 % (CELLAVISION)(BEAKER) (test code = 2818) BANDS - REL (CELLAVISION)(BEAKER) 2 % 0-10 (test code = 2826) NEUTROPHILS - ABS 14.51 K/ul 1.56-6.13 H (CELLAVISION)(BEAKER) (test code = 2830) LYMPHOCYTES - ABS 1.59 K/ul 1.18-3.74 (CELLAVISION)(BEAKER) (test code = 2831) MONOCYTES - ABS 1.24 K/uL 0.24-0.36 H (CELLAVISION)(BEAKER) (test code = 2832) BANDS - ABS (CELLAVISION)(BEAKER) 0.35 K/uL 0.00-0.80 (test code = 2840) TOTAL COUNTED (BEAKER) (test code 100 = 1351) WBC MORPHOLOGY (BEAKER) (test code Normal = 487) LARGE PLT(BEAKER) (test code = Present 2156) POLYCHROMATOPHILLIC RBCS(BEAKER) 1+ few (test code = 478) HYPOCHROMIA (BEAKER) (test code = 1+ few 963) ARTIFACT (CELLAVISION)(BEAKER) Present (test code = 3432) PLATELET CONCENTRATION Adequate (CELLAVISION)(BEAKER) (test code = 3438) Received comment: User comments: Slide comments:BASIC METABOLIC [id number] 06:47:00 Test Item Value Reference Range Interpretation Comments SODIUM (BEAKER) 140 meq/L 136-145 (test code = 381) POTASSIUM (BEAKER) 3.5 meq/L 3.5-5.1 (test code = 379) CHLORIDE (BEAKER) 97 meq/L 98-107 L (test code = 382) CO2 (BEAKER) (test 36 meq/L 22-29 H code = 355) BLOOD UREA NITROGEN 16 mg/dL 7-21 (BEAKER) (test code = 354) CREATININE (BEAKER) 0.74 mg/dL 0.57-1.25 (test code = 358) GLUCOSE RANDOM 408 mg/dL 70-105 HH ([facility]) (test code = 652) CALCIUM ([facility]) 8.3 mg/dL 8.4-10.2 L (test code = 697) EGFR ([facility]) (test 115 mL/min/1.73 ESTIM ATED GFR IS code = 1092) sq m NOT ACCURATE CREATININE CLEARANCE IN PREDICTING GLOMERULAR FILTRATION RATE . ESTIMATED GFR I S NOT APPLICABLE FOR DIALYSIS PATIEN TS. POCT-GLUCOSE [id number] 21:53:00 Test Item Value Reference Range Interpretation Comments POC-GLUCOSE METER 358 mg/dL 70-110 H TESTED AT [place] [address] ([facility]) (test code = [place] T[place] [facility] 1538) [address] POCT-GLUCOSE [id number] 20:34:00 Test Item Value Reference Range Interpretation Comments POC-GLUCOSE METER 325 mg/dL 70-110 H TESTED AT [place] [address] ([facility]) (test code = [place] T[place] [facility] 1538) [address] POCT-GLUCOSE [id number] 17:15:00 Test Item Value Reference Range Interpretation Comments POC-GLUCOSE METER 446 mg/dL 70-110 HH Notified R Collin STAPLETON/TESTED ([facility]) (test code = AT [place] [address]) [facility] [address], CHEST WITH IV CONTRAST- PE TEST [id number] 16:56:00FINAL REPORT DOSE REDUCTION: The examination was [...] of 06/11/2015 have resolved, others have increased. IMPRESSION: 1. No evidence of pulmonary embolism. 2. Findings consistent with sequela of cystic fibrosis. 3. Bilateral patchy groundglass and reticular nodular opacities, some are new from CT of 06/11/2015. The latter could represent superimposed acute pneumonitis. Trace pleural effusions. Signed: Lg Valdez Verified Date/Time: 04/15/2019 16:56:47 Reading Location: [address] Reading Room POCT-GLUCOSE [id number] 11:53:00 Test Item Value Reference Range Interpretation Comments POC-GLUCOSE METER 371 mg/dL 70-110 H Notified R Collin STAPLETON/TESTED (SIMI) (test code = AT [facility] 6720 [facility] 8730) [facility] 7703 0 CBC W/PLT COUNT & AUTO [id number] 10:05:00 Test Item Value Reference Range Interpretation Comments WHITE BLOOD CELL COUNT (BEAKER) 23.1 K/ L 3.5-10.5 H (test code = 775) RED BLOOD CELL COUNT (BEAKER) 3.23 M/ L 3.93-5.22 L (test code = 761) HEMOGLOBIN (BEAKER) (test code = 8.5 GM/DL 11.2-15.7 L 410) HEMATOCRIT (BEAKER) (test code = 28.3 % 34.1-44.9 L 411) MEAN CORPUSCULAR VOLUME (BEAKER) 87.6 fL 79.4-94.8 (test code = 753) MEAN CORPUSCULAR HEMOGLOBIN 26.3 pg 25.6-32.2 (BEAKER) (test code = 751) MEAN CORPUSCULAR HEMOGLOBIN CONC 30.0 GM/DL 32.2-35.5 L (BEAKER) (test code = 752) RED CELL DISTRIBUTION WIDTH 16.4 % 11.7-14.4 H (BEAKER) (test code = 412) PLATELET COUNT (BEAKER) (test 400 K/CU MM 150-450 code = 756) MEAN PLATELET VOLUME (BEAKER) 9.9 fL 9.4-12.3 (test code = 754) NUCLEATED RED BLOOD CELLS 0 /100 WBC 0-0 (BEAKER) (test code = 413) (CELLAVISION MANUAL DIFF)2019-04-15 10:05:00 Test Item Value Reference Range Interpretation Comments NEUTROPHILS - REL 92 % (CELLAVISION)(BEAKER) (test code = 2816) LYMPHOCYTES - REL 3 % (CELLAVISION)(BEAKER) (test code = 2817) MONOCYTES - REL 5 % (CELLAVISION)(BEAKER) (test code = 2818) NEUTROPHILS - ABS 21.25 K/ul 1.56-6.13 H (CELLAVISION)(BEAKER) (test code = 2830) LYMPHOCYTES - ABS 0.69 K/ul 1.18-3.74 L (CELLAVISION)(BEAKER) (test code = 2831) MONOCYTES - ABS 1.16 K/uL 0.24-0.36 H (CELLAVISION)(BEAKER) (test code = 2832) TOTAL COUNTED (BEAKER) (test code 100 = 1351) RBC MORPHOLOGY (BEAKER) (test code Normal = 762) WBC MORPHOLOGY (BEAKER) (test code Normal = 487) PLT MORPHOLOGY (BEAKER) (test code Normal = 486) ARTIFACT (CELLAVISION)(BEAKER) Present (test code = 3432) PLATELET CONCENTRATION Adequate (CELLAVISION)(BEAKER) (test code = 3438) Received comment: User comments: Slide comments:POCT-GLUCOSE [id number] 07:57:00 Test Item Value Reference Range Interpretation Comments POC-GLUCOSE METER 337 mg/dL 70-110 H Notified R Collin STAPLETON/TESTED (BEAKER) (test code = AT [facility] [address] 1538) [place] [address] BASIC METABOLIC [id number] 06:56:00 Test Item Value Reference Range Interpretation Comments SODIUM (BEAKER) 136 meq/L 136-145 (test code = 381) POTASSIUM (BEAKER) 4.3 meq/L 3.5-5.1 (test code = 379) CHLORIDE (BEAKER) 97 meq/L 98-107 L (test code = 382) CO2 (BEAKER) (test 33 meq/L 22-29 H code = 355) BLOOD UREA NITROGEN 14 mg/dL 7-21 (BEAKER) (test code = 354) CREATININE (BEAKER) 0.73 mg/dL 0.57-1.25 (test code = 358) GLUCOSE RANDOM 274 mg/dL 70-105 H (BEAKER) (test code = 652) CALCIUM (BEAKER) 8.2 mg/dL 8.4-10.2 L (test code = 697) EGFR (BEAKER) (test 117 mL/min/1.73 ESTIM ATED GFR IS code = 1092) sq m NOT ACCURATE CREATININE CLEARANCE IN PREDICTING GLOMERULAR FILTRATION RATE . ESTIMATED GFR I S NOT APPLICABLE FOR DIALYSIS PATIEN TS. SCREEN, [id number] 01:40:00 Test Item Value Reference Range Interpretation Comments TEST URINE (BEAKER) (test Negative code = 583) POCT-GLUCOSE [id number] 18:03:00 Test Item Value Reference Range Interpretation Comments POC-GLUCOSE METER 327 mg/dL 70-110 H Notified R Collin STAPLETON/TESTED (BEAKER) (test code = AT [facility] [address] [facility] 7703 0 CBC W/PLT COUNT & AUTO [id number] 15:01:00 Test Item Value Reference Range Interpretation Comments WHITE BLOOD CELL COUNT (BEAKER) 24.0 K/ L 3.5-10.5 H (test code = 775) RED BLOOD CELL COUNT (BEAKER) 3.38 M/ L 3.93-5.22 L (test code = 761) HEMOGLOBIN (BEAKER) (test code = 8.8 GM/DL 11.2-15.7 L 410) HEMATOCRIT (BEAKER) (test code = 29.8 % 34.1-44.9 L 411) MEAN CORPUSCULAR VOLUME (BEAKER) 88.2 fL 79.4-94.8 (test code = 753) MEAN CORPUSCULAR HEMOGLOBIN 26.0 pg 25.6-32.2 (BEAKER) (test code = 751) MEAN CORPUSCULAR HEMOGLOBIN CONC 29.5 GM/DL 32.2-35.5 L (BEAKER) (test code = 752) RED CELL DISTRIBUTION WIDTH 16.5 % 11.7-14.4 H (BEAKER) (test code = 412) PLATELET COUNT (BEAKER) (test 387 K/CU MM 150-450 code = 756) MEAN PLATELET VOLUME (BEAKER) 9.7 fL 9.4-12.3 (test code = 754) NUCLEATED RED BLOOD CELLS 0 /100 WBC 0-0 (BEAKER) (test code = 413) (CELLAVISION MANUAL DIFF)2019-04-14 15:01:00 Test Item Value Reference Range Interpretation Comments NEUTROPHILS - REL 95 % (CELLAVISION)(BEAKER) (test code = 2816) LYMPHOCYTES - REL 3 % (CELLAVISION)(BEAKER) (test code = 2817) MONOCYTES - REL 2 % (CELLAVISION)(BEAKER) (test code = 2818) NEUTROPHILS - ABS 22.80 K/ul 1.56-6.13 H (CELLAVISION)(BEAKER) (test code = 2830) LYMPHOCYTES - ABS 0.72 K/ul 1.18-3.74 L (CELLAVISION)(BEAKER) (test code = 2831) MONOCYTES - ABS 0.48 K/uL 0.24-0.36 H (CELLAVISION)(BEAKER) (test code = 2832) TOTAL COUNTED (BEAKER) (test code 100 = 1351) WBC MORPHOLOGY (BEAKER) (test code Normal = 487) LARGE PLT(BEAKER) (test code = Present 2156) POLYCHROMATOPHILLIC RBCS(BEAKER) 1+ few (test code = 478) HYPOCHROMIA (BEAKER) (test code = 1+ few 963) BASOPHILIC STIPPLING (BEAKER) Present (test code = 473) ARTIFACT (CELLAVISION)(BEAKER) Present (test code = 3432) PLATELET CONCENTRATION Adequate (CELLAVISION)(BEAKER) (test code = 3438) Received comment: User comments: Slide comments:POCT-GLUCOSE [id number] 11:50:00 Test Item Value Reference Range Interpretation Comments POC-GLUCOSE METER 422 mg/dL 70-110 Notified R Collin STAPLETON/TESTED ([facility]) (test code = AT [address] [address]) [facility] [address] 0 POCT-GLUCOSE [id number] 07:40:00 Test Item Value Reference Range Interpretation Comments POC-GLUCOSE METER > mg/dL 70-110 HH OUTSIDE ME ASURING ([facility]) (test code RANGENot ified JORDON MD/TESTED = 1538) AT [place] [address] B ERTNER [facility] 7703 0 [id number] 05:34:00 Test Item Value Reference Range Interpretation Comments BLOOD UREA NITROGEN ([facility]) (test 17 mg/dL 05-14 code = 354) [id number] 05:34:00 Test Item Value Reference Range Interpretation Comments CREATININE ([facility]) 1.09 mg/dL 0.57-1.25 (test code = 358) EGFR ([facility]) (test 74 mL/min/1.73 ESTIMA MAGDALENO GFR IS code = 1092) sq m NOT ACCURATE CREATININE CLEARANCE IN PREDICTING GLOMERULAR FILTRATION RATE . ESTIMATED GFR I S NOT APPLICABLE FOR DIALYSIS PATIEN TS. POCT-GLUCOSE [id number] 22:01:00 Test Item Value Reference Range Interpretation Comments POC-GLUCOSE METER 314 mg/dL 70-110 H Notified R Collin STAPLETON/TESTED ([facility]) (test code = AT [address] 1538) [facility] 7[address] 0 POCT-GLUCOSE [id number] 17:42:00 Test Item Value Reference Range Interpretation Comments POC-GLUCOSE METER 192 mg/dL 70-110 H TESTED AT [place] [address] ([facility]) (test code = [place] T[place] [facility] 1538) [address] POCT-GLUCOSE [id number] 14:10:00 Test Item Value Reference Range Interpretation Comments POC-GLUCOSE METER 372 mg/dL 70-110 H TESTED AT [place] [address] ([facility]) (test code = [place] Tanner [facility] 1538) [address] BASIC METABOLIC [id number] 07:00:00 Test Item Value Reference Range Interpretation Comments SODIUM (BEAKER) 139 meq/L 136-145 (test code = 381) POTASSIUM (BEAKER) 4.1 meq/L 3.5-5.1 (test code = 379) CHLORIDE (BEAKER) 103 meq/L 98-107 (test code = 382) CO2 (BEAKER) (test 27 meq/L 22-29 code = 355) BLOOD UREA NITROGEN 20 mg/dL 7-21 (AKER) (test code = 354) CREATININE (BEAKER) 0.93 mg/dL 0.57-1.25 (test code = 358) GLUCOSE RANDOM 278 mg/dL 70-105 H ([facility]) (test code = 652) CALCIUM (BEAKER) 7.8 mg/dL 8.4-10.2 L (test code = 697) EGFR (BEAKER) (test 88 mL/min/1.73 ESTIMA MAGDALENO GFR IS code = 1092) sq m NOT ACCURATE CREATININE CLEARANCE IN PREDICTING GLOMERULAR FILTRATION RATE . ESTIMATED GFR I S NOT APPLICABLE FOR DIALYSIS PATIEN TS. POCT-GLUCOSE [id number] 06:44:00 Test Item Value Reference Range Interpretation Comments POC-GLUCOSE METER 177 mg/dL 70-110 H TESTED AT [place] [address] ([facility]) (test code = [place] 1538) [address] [id number] 05:08:00 Test Item Value Reference Range Interpretation Comments BLOOD UREA NITROGEN ([facility]) (test 21 mg/dL 7-21 code = 354) [id number] 05:08:00 Test Item Value Reference Range Interpretation Comments CREATININE ([facility]) 1.03 mg/dL 0.57-1.25 (test code = 358) EGFR ([facility]) (test 79 mL/min/1.73 ESTIMA MAGDALENO GFR IS code = 1092) sq m NOT ACCURATE CREATININE CLEARANCE IN PREDICTING GLOMERULAR FILTRATION RATE . ESTIMATED GFR I S NOT APPLICABLE FOR DIALYSIS PATIEN TS. POCT-GLUCOSE [id number] 03:44:00 Test Item Value Reference Range Interpretation Comments POC-GLUCOSE METER 411 mg/dL 70-110 HH Notified R Collin STAPLETON/TESTED ([facility]) (test code = AT [facility] [address] [address]38) [facility] 7703 0 POCT-GLUCOSE [id number] 02:22:00 Test Item Value Reference Range Interpretation Comments POC-GLUCOSE METER 409 mg/dL 70-110 HH TESTED AT [place] [address] ([facility]) (test code = [place] 1538) [address] POCT-GLUCOSE [id number] 00:48:00 Test Item Value Reference Range Interpretation Comments POC-GLUCOSE METER > mg/dL 70-110 HH OUTSIDE ME ASURING (BEAKER) (test code RANGENot ified JORDON MD/TESTED = 1538) AT [facility] [address] [place] [address] B-TYPE NATRIURETIC FACTOR (BNP)2019-04-12 19:52:00 Test Item Value Reference Range Interpretation Comments B-TYPE NATRIURETIC PEPTIDE (BEAKER) 618 pg/mL 0-100 H (test code = 700) BASIC METABOLIC [id number] 19:34:00 Test Item Value Reference Range Interpretation Comments SODIUM (BEAKER) 137 meq/L 136-145 (test code = 381) POTASSIUM (BEAKER) 5.0 meq/L 3.5-5.1 (test code = 379) CHLORIDE (BEAKER) 101 meq/L 98-107 (test code = 382) CO2 (BEAKER) (test 26 meq/L 22-29 code = 355) BLOOD UREA NITROGEN 24 mg/dL 7-21 H (BEAKER) (test code = 354) CREATININE (BEAKER) 1.13 mg/dL 0.57-1.25 (test code = 358) GLUCOSE RANDOM 435 mg/dL 70-105 HH (BEAKER) (test code = 652) CALCIUM (BEAKER) 8.0 mg/dL 8.4-10.2 L (test code = 697) EGFR (BEAKER) (test 71 mL/min/1.73 ESTIMA MAGDALENO GFR IS code = 1092) sq m NOT ACCURATE CREATININE CLEARANCE IN PREDICTING GLOMERULAR FILTRATION RATE . ESTIMATED GFR I S NOT APPLICABLE FOR DIALYSIS PATIEN TS. CBC W/PLT COUNT & AUTO [id number] 19:32:00 Test Item Value Reference Range Interpretation Comments WHITE BLOOD CELL COUNT (BEAKER) 24.2 K/ L 3.5-10.5 H (test code = 775) RED BLOOD CELL COUNT (BEAKER) 3.36 M/ L 3.93-5.22 L (test code = 761) HEMOGLOBIN (BEAKER) (test code = 8.9 GM/DL 11.2-15.7 L 410) HEMATOCRIT (BEAKER) (test code = 29.1 % 34.1-44.9 L 411) MEAN CORPUSCULAR VOLUME (BEAKER) 86.6 fL 79.4-94.8 (test code = 753) MEAN CORPUSCULAR HEMOGLOBIN 26.5 pg 25.6-32.2 (BEAKER) (test code = 751) MEAN CORPUSCULAR HEMOGLOBIN CONC 30.6 GM/DL 32.2-35.5 L (BEAKER) (test code = 752) RED CELL DISTRIBUTION WIDTH 16.3 % 11.7-14.4 H (BEAKER) (test code = 412) PLATELET COUNT (BEAKER) (test 423 K/CU MM 150-450 code = 756) MEAN PLATELET VOLUME (BEAKER) 10.3 fL 9.4-12.3 (test code = 754) NUCLEATED RED BLOOD CELLS 0 /100 WBC 0-0 (BEAKER) (test code = 413) (CELLAVISION MANUAL DIFF)2019-04-12 19:32:00 Test Item Value Reference Range Interpretation Comments NEUTROPHILS - REL 97 % (CELLAVISION)(BEAKER) (test code = 2816) LYMPHOCYTES - REL 2 % (CELLAVISION)(BEAKER) (test code = 2817) BANDS - REL (CELLAVISION)(BEAKER) 1 % 0-10 (test code = 2826) NEUTROPHILS - ABS 23.47 K/ul 1.56-6.13 H (CELLAVISION)(BEAKER) (test code = 2830) LYMPHOCYTES - ABS 0.48 K/ul 1.18-3.74 L (CELLAVISION)(BEAKER) (test code = 2831) BANDS - ABS (CELLAVISION)(BEAKER) 0.24 K/uL 0.00-0.80 (test code = 2840) TOTAL COUNTED (BEAKER) (test code 100 = 1351) WBC MORPHOLOGY (BEAKER) (test code Normal = 487) GIANT PLATELETS (BEAKER) (test Present code = 313) POLYCHROMATOPHILLIC RBCS(BEAKER) 1+ few (test code = 478) HYPOCHROMIA (BEAKER) (test code = 1+ few 963) POIKILOCYTES (BEAKER) (test code = 1+ few 966) BASOPHILIC STIPPLING (BEAKER) Present (test code = 473) PLATELET CONCENTRATION Adequate (CELLAVISION)(BEAKER) (test code = 3438) Received comment: User comments: Slide comments:RAD, CHEST, 1 VIEW, NON DEPT 2019-04-12 19:21:00Reason for exam:->SHORTNESS OF BREATHShould this be [...] stable. Bones are unremarkable. IMPRESSION: 1. Diffuse bilatera l pulmonary parenchymal abnormality, most consistent with cystic fibrosis. Additionally, new subtle focal opacity is present in the right lower lobe, possibly representing superimposed pneumonia. Signed: Flip Singer Verified Date/Time: 04/12/2019 19:21:17 Reading Location: [place] [address] POCT-LACTIC ACID, [id number] 18:53:00 Test Item Value Reference Range Interpretation Comments POC-LACTIC ACID, 1.1 mmol/L 0.9-1.7 TESTED AT [facility] [address] ([facility]) (test PAUL Tanner [facility] code = 2805) [address] FUNGUS CULTURE + [id number] 20:03:00 Test Item Value Reference Range Interpretation Comments CULTURE ([facility]) (test No fungus isolated in code = 1095) 28 days FUNGUS SMEAR ([facility]) No fungi seen (test code = 1406) POCT-GLUCOSE [id number] 16:35:00 Test Item Value Reference Range Interpretation Comments POC-GLUCOSE METER 271 mg/dL 70-[address] [facility] [address] ([facility]) (test code = [facility] Ciro [facility] 1538) [address] POCT-GLUCOSE [id number] 11:17:00 Test Item Value Reference Range Interpretation Comments POC-GLUCOSE METER 372 mg/dL 70-110 H Notified R Collin STAPLETON/TESTED ([facility]) (test code = AT [facility] [address] [facility] 1538) [facility] [address] POCT-GLUCOSE [id number] 08:26:00 Test Item Value Reference Range Interpretation Comments POC-GLUCOSE METER 264 mg/dL 70-[address] [facility] [address] ([facility]) (test code = PUAL Tanner [place] 1538) [id number] 07:40:00 Test Item Value Reference Range Interpretation Comments MAGNESIUM (BEAKER) (test code = 1.3 mg/dL 1.6-2.6 L 627) HEPATIC FUNCTION [id number] 07:40:00 Test Item Value Reference Range Interpretation Comments TOTAL PROTEIN (BEAKER) (test code = 6.3 gm/dL 6.0-8.3 770) ALBUMIN (BEAKER) (test code = 1145) 2.9 g/dL 3.5-5.0 L BILIRUBIN TOTAL (BEAKER) (test code 0.1 mg/dL 0.2-1.2 L = 377) BILIRUBIN DIRECT (BEAKER) (test 0.1 mg/dL 0.1-0.5 code = 706) ALKALINE PHOSPHATASE (BEAKER) (test 147 U/L 40-150 code = 346) AST (SGOT) (BEAKER) (test code = 63 U/L 5-34 H 353) ALT (SGPT) (BEAKER) (test code = 96 U/L 6-55 H 347) BUN AND [id number] 07:40:00 Test Item Value Reference Range Interpretation Comments BLOOD UREA NITROGEN 20 mg/dL 7-21 (BEAKER) (test code = 354) CREATININE (BEAKER) 0.83 mg/dL 0.57-1.25 (test code = 358) EGFR (BEAKER) (test 101 mL/min/1.73 ESTIM ATED GFR IS code = 1092) sq m NOT ACCURATE CREATININE CLEARANCE IN PREDICTING GLOMERULAR FILTRATION RATE . ESTIMATED GFR I S NOT APPLICABLE FOR DIALYSIS PATIEN TS. POCT-GLUCOSE [id number] 21:31:00 Test Item Value Reference Range Interpretation Comments POC-GLUCOSE METER 311 mg/dL 70-110 H Notified R Collin STAPLETON/TESTED (SIMI) (test code = AT [facility] [address] 15[address]) [place] [address] POCT-GLUCOSE [id number] 18:44:00 Test Item Value Reference Range Interpretation Comments POC-GLUCOSE METER > mg/dL 70-110 HH OUTSIDE ME ASURING (BEAKER) (test code RANGETES MAGDALENO AT [place] [address] = 1538) [facility] [address] POCT-GLUCOSE [id number] 11:53:00 Test Item Value Reference Range Interpretation Comments POC-GLUCOSE METER 95 mg/dL 70-110 TESTED AT [place] [address] ([facility]) (test code = PAUL Tanner [facility] [address] 1538) [id number] 08:39:00 Test Item Value Reference Range Interpretation Comments PHOSPHORUS (BEAKER) (test code = 3.5 mg/dL 2.3-4.7 604) [id number] 08:39:00 Test Item Value Reference Range Interpretation Comments MAGNESIUM (BEAKER) (test code = 1.6 mg/dL 1.6-2.6 627) BUN AND [id number] 08:39:00 Test Item Value Reference Range Interpretation Comments BLOOD UREA NITROGEN 28 mg/dL 7-21 H ([facility]) (test code = 354) CREATININE ([facility]) 0.72 mg/dL 0.57-1.25 (test code = 358) EGFR ([facility]) (test 119 mL/min/1.73 ESTIM ATED GFR IS code = 1092) sq m NOT ACCURATE CREATININE CLEARANCE IN PREDICTING GLOMERULAR FILTRATION RATE . ESTIMATED GFR I S NOT APPLICABLE FOR DIALYSIS PATIEN TS. POCT-GLUCOSE [id number] 08:37:00 Test Item Value Reference Range Interpretation Comments POC-GLUCOSE METER 159 mg/dL 70-110 H TESTED AT [place] [address] ([facility]) (test code = [facility] Ciro [facility] 1538) [address] POCT-GLUCOSE [id number] 21:42:00 Test Item Value Reference Range Interpretation Comments POC-GLUCOSE METER 223 mg/dL 70-110 H TESTED AT [place] [address] ([facility]) (test code = [facility] C[employer] [facility] 1538) [address] POCT-GLUCOSE [id number] 18:05:00 Test Item Value Reference Range Interpretation Comments POC-GLUCOSE METER > mg/dL 70-110 HH OUTSIDE ME ASURING (BEAKER) (test code RANGETES MAGDALENO AT [place] [address] = 1538) [facility] [address] BUN AND [id number] 17:32:00 Test Item Value Reference Range Interpretation Comments BLOOD UREA NITROGEN 31 mg/dL 7-21 H ([facility]) (test code = 354) CREATININE ([facility]) 1.09 mg/dL 0.57-1.25 (test code = 358) EGFR ([facility]) (test 74 mL/min/1.73 ESTIMA MAGDALENO GFR IS code = 1092) sq m NOT ACCURATE CREATININE CLEARANCE IN PREDICTING GLOMERULAR FILTRATION RATE . ESTIMATED GFR I S NOT APPLICABLE FOR DIALYSIS PATIEN TS. POCT-GLUCOSE [id number] 12:47:00 Test Item Value Reference Range Interpretation Comments POC-GLUCOSE METER 135 mg/dL 70-110 H TESTED AT [place] [address] ([facility]) (test code = [facility] [employer] [facility] 1538) [address] POCT-GLUCOSE [id number] 12:16:00 Test Item Value Reference Range Interpretation Comments POC-GLUCOSE METER 42 mg/dL 70-110 L TESTED AT [place] [address] ([facility]) (test code = [facility] [employer] [facility] [address] 1538) POCT-GLUCOSE [id number] 10:19:00 Test Item Value Reference Range Interpretation Comments POC-GLUCOSE METER 303 mg/dL 70-110 H TESTED AT [place] [address] ([facility]) (test code = [facility] [employer] [facility] 1538) [address] POCT-GLUCOSE [id number] 08:48:00 Test Item Value Reference Range Interpretation Comments POC-GLUCOSE METER 307 mg/dL 70-110 H TESTED AT [place] [address] ([facility]) (test code = [facility] [employer] [facility] 1538) [address] [id number] 05:02:00 Test Item Value Reference Range Interpretation Comments MAGNESIUM ([facility]) 1.8 mg/dL 1.6-2.6 Specimen slightly (test code = 627) hemolyzed POCT-GLUCOSE [id number] 21:59:00 Test Item Value Reference Range Interpretation Comments POC-GLUCOSE METER 191 mg/dL 70-110 H TESTED AT [place] [address] ([facility]) (test code = [facility] [employer] [facility] 1538) [address] POCT-GLUCOSE [id number] 17:44:00 Test Item Value Reference Range Interpretation Comments POC-GLUCOSE METER 222 mg/dL 70-110 H TESTED AT [place] [address] ([facility]) (test code = PAUL Tanner [facility] 1538) [address] POCT-GLUCOSE [id number] 12:19:00 Test Item Value Reference Range Interpretation Comments POC-GLUCOSE METER 88 mg/dL 70-[address] [facility] 67[address] (BEAKER) (test code = [place] [address] 1538) [id number] 07:28:00 Test Item Value Reference Range Interpretation Comments MAGNESIUM (BEAKER) (test code = 1.8 mg/dL 1.6-2.6 627) COMPREHENSIVE METABOLIC [id number] 07:28:00 Test Item Value Reference Range Interpretation Comments TOTAL PROTEIN 5.7 gm/dL 6.0-8.3 L (BEAKER) (test code = 770) ALBUMIN (BEAKER) 2.6 g/dL 3.5-5.0 L (test code = 1145) ALKALINE PHOSPHATASE 125 U/L 40-150 (BEAKER) (test code = 346) BILIRUBIN TOTAL 0.1 mg/dL 0.2-1.2 L (BEAKER) (test code = 377) SODIUM (BEAKER) (test 139 meq/L 136-145 code = 381) POTASSIUM (BEAKER) 4.4 meq/L 3.5-5.1 (test code = 379) CHLORIDE (BEAKER) 94 meq/L 98-107 L (test code = 382) CO2 (BEAKER) (test 39 meq/L 22-29 H code = 355) BLOOD UREA NITROGEN 30 mg/dL 7-21 H (BEAKER) (test code = 354) CREATININE (BEAKER) 0.80 mg/dL 0.57-1.25 (test code = 358) GLUCOSE RANDOM 296 mg/dL 70-105 H (BEAKER) (test code = 652) CALCIUM (BEAKER) 8.0 mg/dL 8.4-10.2 L (test code = 697) AST (SGOT) (BEAKER) 40 U/L 5-34 H (test code = 353) ALT (SGPT) (BEAKER) 123 U/L 6-55 H (test code = 347) EGFR (BEAKER) (test 105 ESTIMATE D GFR IS code = 1092) mL/min/1.73 sq NOT ACCURA TE m CREATININE CLEARANCE IN PREDICTING GLOMERULAR FILTRATION RATE . ESTIMATED GFR I S NOT APPLICABLE FOR DIALYSIS PATIEN TS. POCT-GLUCOSE [id number] 21:14:00 Test Item Value Reference Range Interpretation Comments POC-GLUCOSE METER 179 mg/dL 70-[address] [facility] 6720 ([facility]) (test code = [facility] 1538) [address] POCT-GLUCOSE [id number] 17:49:00 Test Item Value Reference Range Interpretation Comments POC-GLUCOSE METER 331 mg/dL 70-110 H TESTED AT [place] [address] ([facility]) (test code = [facility] 1538) [address] POCT-GLUCOSE [id number] 11:40:00 Test Item Value Reference Range Interpretation Comments POC-GLUCOSE METER 241 mg/dL 70-110 H TESTED AT [place] [address] ([facility]) (test code = [facility] 1538) [address] POCT-GLUCOSE [id number] 08:43:00 Test Item Value Reference Range Interpretation Comments POC-GLUCOSE METER 52 mg/dL 70-110 L TESTED AT [place] [address] ([facility]) (test code = [facility] [address] 1538) COMPREHENSIVE METABOLIC [id number] 08:01:00 Test Item Value Reference Range Interpretation Comments TOTAL PROTEIN 5.9 gm/dL 6.0-8.3 L (BEAKER) (test code = 770) ALBUMIN (BEAKER) 2.7 g/dL 3.5-5.0 L (test code = 1145) ALKALINE PHOSPHATASE 132 U/L 40-150 (BEAKER) (test code = 346) BILIRUBIN TOTAL 0.1 mg/dL 0.2-1.2 L (BEAKER) (test code = 377) SODIUM (BEAKER) (test 139 meq/L 136-145 code = 381) POTASSIUM (BEAKER) 4.5 meq/L 3.5-5.1 (test code = 379) CHLORIDE (BEAKER) 96 meq/L 98-107 L (test code = 382) CO2 (BEAKER) (test 38 meq/L 22-29 H code = 355) BLOOD UREA NITROGEN 26 mg/dL 7-21 H (BEAKER) (test code = 354) CREATININE (BEAKER) 0.72 mg/dL 0.57-1.25 (test code = 358) GLUCOSE RANDOM 91 mg/dL 70-105 (BEAKER) (test code = 652) CALCIUM (BEAKER) 7.9 mg/dL 8.4-10.2 L (test code = 697) AST (SGOT) (BEAKER) 54 U/L 5-34 H (test code = 353) ALT (SGPT) (BEAKER) 149 U/L 6-55 H (test code = 347) EGFR (BEAKER) (test 119 ESTIMATE D GFR IS code = 1092) mL/min/1.73 sq NOT ACCURA TE m CREATININE CLEARANCE IN PREDICTING GLOMERULAR FILTRATION RATE . ESTIMATED GFR I S NOT APPLICABLE FOR DIALYSIS PATIEN TS. [id number] 07:57:00 Test Item Value Reference Range Interpretation Comments MAGNESIUM (BEAKER) (test code = 1.3 mg/dL 1.6-2.6 L 627) U/S, ABDOMINAL, [id number] 03:59:00Abdomen limited area? Add comment if clarification [...] Parenchyma: Normal echogenicity. No cysts. No stones. Hydronephrosis: None. Ascites: None. Regional Vasculature: The visible abdominal aorta, IVC and hepatic veins are patent. Additional Findings: None. IMPRESSION: Unremarkable right upper quadrant ultrasound. Signed: Rosa M Freitas Verified Date/Time: 03/08/2019 03:59:22 Reading Location: [facility] C0[facility] Neuro Reading Room POCT-GLUCOSE [id number] 21:26:00 Test Item Value Reference Range Interpretation Comments POC-GLUCOSE METER 275 mg/dL 70-110 H TESTED AT [place] [address] ([facility]) (test code = PAUL Tanner [facility] 1538) [address] HEPATITIS PANEL, [id number] 19:14:00 Test Item Value Reference Range Interpretation Comments HEPATITIS A IGM ANTIBODY ([facility]) Nonreactive Nonreactive (test code = 498) HEPATITIS B CORE IGM ANTIBODY Nonreactive Nonreactive ([facility]) (test code = 645) HEPATITIS C ANTIBODY ([facility]) Nonreactive Nonreactive (test code = 367) HEPATITIS B SURFACE ANTIGEN (2) Nonreactive Nonreactive ([facility]) (test code = 2585) [id number] 18:18:00 Test Item Value Reference Range Interpretation Comments POTASSIUM ([facility]) (test code = 4.9 meq/L 3.5-5.1 379) POCT-GLUCOSE [id number] 16:48:00 Test Item Value Reference Range Interpretation Comments POC-GLUCOSE METER 143 mg/dL 70-110 H TESTED AT [place] [address] ([facility]) (test code = PAUL Tanner [facility] 1538) [address] POCT-GLUCOSE [id number] 12:30:00 Test Item Value Reference Range Interpretation Comments POC-GLUCOSE METER 142 mg/dL 70-110 H TESTED AT [place] [address] ([facility]) (test code = PAUL Tanner [facility] 1538) [address] POCT-GLUCOSE [id number] 11:58:00 Test Item Value Reference Range Interpretation Comments POC-GLUCOSE METER 25 mg/dL 70-110 LL Notified Ciro Polanco MD/TESTED AT ([facility]) (test code = [place] [address] [address]) [facility] [address] 0 POCT-GLUCOSE [id number] 11:34:00 Test Item Value Reference Range Interpretation Comments POC-GLUCOSE METER 50 mg/dL 70-110 L TESTED AT [place] [address] ([facility]) (test code = PAUL Tanner [facility] [address] 1538) CREATINE KINASE (CK)2019-03-07 11:09:00 Test Item Value Reference Range Interpretation Comments CREATINE KINASE TOTAL ([facility]) (test 90 U/L 29-200 code = 380) POCT-GLUCOSE [id number] 08:07:00 Test Item Value Reference Range Interpretation Comments POC-GLUCOSE METER 376 mg/dL 70-110 H Notified Ciro Polanco MD/TESTED (BEAKER) (test code = AT [facility] [address] [facility] [address] 0 COMPREHENSIVE METABOLIC [id number] 07:23:00 Test Item Value Reference Range Interpretation Comments TOTAL PROTEIN 6.1 gm/dL 6.0-8.3 (BEAKER) (test code = 770) ALBUMIN (BEAKER) 2.7 g/dL 3.5-5.0 L (test code = 1145) ALKALINE PHOSPHATASE 140 U/L 40-150 (BEAKER) (test code = 346) BILIRUBIN TOTAL 0.1 mg/dL 0.2-1.2 L (BEAKER) (test code = 377) SODIUM (BEAKER) (test 138 meq/L 136-145 code = 381) POTASSIUM (BEAKER) 6.0 meq/L 3.5-5.1 HH (test code = 379) CHLORIDE (BEAKER) 95 meq/L 98-107 L (test code = 382) CO2 (BEAKER) (test 35 meq/L 22-29 H code = 355) BLOOD UREA NITROGEN 33 mg/dL 7-21 H (BEAKER) (test code = 354) CREATININE (BEAKER) 1.00 mg/dL 0.57-1.25 (test code = 358) GLUCOSE RANDOM 483 mg/dL 70-105 HH (BEAKER) (test code = 652) CALCIUM (BEAKER) 7.9 mg/dL 8.4-10.2 L (test code = 697) AST (SGOT) (BEAKER) 130 U/L 5-34 H (test code = 353) ALT (SGPT) (BEAKER) 217 U/L 6-55 H (test code = 347) EGFR (BEAKER) (test 81 mL/min/1.73 ESTIMA MAGDALENO GFR IS code = 1092) sq m NOT ACCURATE CREATININE CLEARANCE IN PREDICTING GLOMERULAR FILTRATION RATE . ESTIMATED GFR I S NOT APPLICABLE FOR DIALYSIS PATIEN TS. [id number] 07:04:00 Test Item Value Reference Range Interpretation Comments PHOSPHORUS (BEAKER) (test code = 5.3 mg/dL 2.3-4.7 H 604) [id number] 07:04:00 Test Item Value Reference Range Interpretation Comments MAGNESIUM (BEAKER) (test code = 2.0 mg/dL 1.6-2.6 627) CBC W/PLT COUNT & AUTO [id number] 06:44:00 Test Item Value Reference Range Interpretation Comments WHITE BLOOD CELL COUNT (BEAKER) 16.2 K/ L 3.5-10.5 H (test code = 775) RED BLOOD CELL COUNT (BEAKER) 3.50 M/ L 3.93-5.22 L (test code = 761) HEMOGLOBIN (BEAKER) (test code = 9.4 GM/DL 11.2-15.7 L 410) HEMATOCRIT (BEAKER) (test code = 31.4 % 34.1-44.9 L 411) MEAN CORPUSCULAR VOLUME (BEAKER) 89.7 fL 79.4-94.8 (test code = 753) MEAN CORPUSCULAR HEMOGLOBIN 26.9 pg 25.6-32.2 (BEAKER) (test code = 751) MEAN CORPUSCULAR HEMOGLOBIN CONC 29.9 GM/DL 32.2-35.5 L (BEAKER) (test code = 752) RED CELL DISTRIBUTION WIDTH 18.3 % 11.7-14.4 H (BEAKER) (test code = 412) PLATELET COUNT (BEAKER) (test 519 K/CU MM 150-450 H code = 756) MEAN PLATELET VOLUME (BEAKER) 11.4 fL 9.4-12.3 (test code = 754) NUCLEATED RED BLOOD CELLS 0 /100 WBC 0-0 (BEAKER) (test code = 413) NEUTROPHILS RELATIVE PERCENT 90 % (BEAKER) (test code = 429) LYMPHOCYTES RELATIVE PERCENT 4 % (BEAKER) (test code = 430) MONOCYTES RELATIVE PERCENT 4 % (BEAKER) (test code = 431) EOSINOPHILS RELATIVE PERCENT 0 % (BEAKER) (test code = 432) BASOPHILS RELATIVE PERCENT 0 % (BEAKER) (test code = 437) NEUTROPHILS ABSOLUTE COUNT 14.59 K/ L 1.56-6.13 H (BEAKER) (test code = 670) LYMPHOCYTES ABSOLUTE COUNT 0.63 K/ L 1.18-3.74 L (BEAKER) (test code = 414) MONOCYTES ABSOLUTE COUNT (BEAKER) 0.67 K/ L 0.24-0.36 H (test code = 415) EOSINOPHILS ABSOLUTE COUNT 0.00 K/ L 0.04-0.36 L (BEAKER) (test code = 416) BASOPHILS ABSOLUTE COUNT (BEAKER) 0.01 K/ L 0.01-0.08 (test code = 417) IMMATURE GRANULOCYTES-RELATIVE 2 % 0-1 H PERCENT ([facility]) (test code = 2801) POCT-GLUCOSE [id number] 21:22:00 Test Item Value Reference Range Interpretation Comments POC-GLUCOSE METER 74 mg/dL 70-110 TESTED AT [place] [address] ([facility]) (test code = [facility] [address] 1538) POCT-GLUCOSE [id number] 18:21:00 Test Item Value Reference Range Interpretation Comments POC-GLUCOSE METER 166 mg/dL 70-110 H TESTED AT [place] [address] ([facility]) (test code = [facility] 1538) [address] POCT-GLUCOSE [id number] 12:56:00 Test Item Value Reference Range Interpretation Comments POC-GLUCOSE METER 258 mg/dL 70-110 H TESTED AT [place] [address] ([facility]) (test code = [facility] 1538) [address] POTASSIUM-STAT [id number] 09:11:00 Test Item Value Reference Range Interpretation Comments POTASSIUM (BEAKER) (test code = 5.9 meq/L 3.6-5.5 H 379) POCT-GLUCOSE [id number] 09:07:00 Test Item Value Reference Range Interpretation Comments POC-GLUCOSE METER 278 mg/dL 70-110 H TESTED AT [place] [address] ([facility]) (test code = [facility] 1538) [address] [id number] 07:43:00 Test Item Value Reference Range Interpretation Comments POTASSIUM (BEAKER) (test code = 6.1 meq/L 3.5-5.1 HH 379) [id number] 07:38:00 Test Item Value Reference Range Interpretation Comments MAGNESIUM (BEAKER) (test code = 1.1 mg/dL 1.6-2.6 L 627) [id number] 07:38:00 Test Item Value Reference Range Interpretation Comments BLOOD UREA NITROGEN (BEAKER) (test 25 mg/dL 7-21 H code = 354) [id number] 07:38:00 Test Item Value Reference Range Interpretation Comments CREATININE ([facility]) 0.78 mg/dL 0.57-1.25 (test code = 358) EGFR ([facility]) (test 108 mL/min/1.73 ESTIM ATED GFR IS code = 1092) sq m NOT ACCURATE CREATININE CLEARANCE IN PREDICTING GLOMERULAR FILTRATION RATE . ESTIMATED GFR I S NOT APPLICABLE FOR DIALYSIS PATIEN TS. POCT-GLUCOSE [id number] 01:39:00 Test Item Value Reference Range Interpretation Comments POC-GLUCOSE METER 98 mg/dL 70-110 TESTED AT [place] [address] ([facility]) (test code = [employer] [facility] [address] 1538) POCT-GLUCOSE [id number] 01:39:00 Test Item Value Reference Range Interpretation Comments POC-GLUCOSE METER 63 mg/dL 70-110 L TESTED AT [place] [address] ([facility]) (test code = [place] [address] 1538) POCT-GLUCOSE [id number] 21:42:00 Test Item Value Reference Range Interpretation Comments POC-GLUCOSE METER 96 mg/dL 70-110 TESTED AT [place] [address] ([facility]) (test code = [employer] [facility] [address] 1538) POCT-GLUCOSE [id number] 17:58:00 Test Item Value Reference Range Interpretation Comments POC-GLUCOSE METER 266 mg/dL 70-110 H TESTED AT [place] [address] ([facility]) (test code = [employer] [place] 1538) [address] POCT-GLUCOSE [id number] 13:54:00 Test Item Value Reference Range Interpretation Comments POC-GLUCOSE METER 239 mg/dL 70-110 H TESTED AT [place] [address] ([facility]) (test code = [employer] [place] 1538) [address] POCT-GLUCOSE [id number] 12:40:00 Test Item Value Reference Range Interpretation Comments POC-GLUCOSE METER 149 mg/dL 70-110 H TESTED AT [place] [address] ([facility]) (test code = [employer] [place] 1538) [address] POCT-GLUCOSE [id number] 11:48:00 Test Item Value Reference Range Interpretation Comments POC-GLUCOSE METER < mg/dL 70-110 LL OUTSIDE ME ASURING ([facility]) (test code RANGETES MAGDALENO AT [place] [address] = 1538) [facility] [address] POCT-GLUCOSE [id number] 08:28:00 Test Item Value Reference Range Interpretation Comments POC-GLUCOSE METER 232 mg/dL 70-110 H TESTED AT [place] [address] (BEAKER) (test code = PAUL Tanner [facility] 1538) [address] [id number] 07:14:00 Test Item Value Reference Range Interpretation Comments POTASSIUM (BEAKER) (test code = 5.3 meq/L 3.5-5.1 H 379) [id number] 07:14:00 Test Item Value Reference Range Interpretation Comments MAGNESIUM (BEAKER) (test code = 1.7 mg/dL 1.6-2.6 627) [id number] 07:14:00 Test Item Value Reference Range Interpretation Comments BLOOD UREA NITROGEN (BEAKER) (test 30 mg/dL 7-21 H code = 354) [id number] 07:14:00 Test Item Value Reference Range Interpretation Comments CREATININE (BEAKER) 0.78 mg/dL 0.57-1.25 (test code = 358) EGFR (BEAKER) (test 108 mL/min/1.73 ESTIM ATED GFR IS code = 1092) sq m NOT ACCURATE CREATININE CLEARANCE IN PREDICTING GLOMERULAR FILTRATION RATE . ESTIMATED GFR I S NOT APPLICABLE FOR DIALYSIS PATIEN TS. POCT-GLUCOSE [id number] 21:28:00 Test Item Value Reference Range Interpretation Comments POC-GLUCOSE METER 334 mg/dL 70-110 H Will Repea t Test/TESTED (BEAKER) (test code = AT [facility] [address] [facility] 1538) [facility] 7703 0 POCT-GLUCOSE [id number] 19:23:00 Test Item Value Reference Range Interpretation Comments POC-GLUCOSE METER 362 mg/dL 70-110 H TESTED AT [place] [address] ([facility]) (test code = [facility] Ciro [facility] 1538) [address] POCT-GLUCOSE [id number] 17:21:00 Test Item Value Reference Range Interpretation Comments POC-GLUCOSE METER > mg/dL 70-110 HH OUTSIDE ME ASURING (BEAKER) (test code RANGETES MAGDALENO AT [place] [address] = 1538) [facility] [address] POCT-GLUCOSE [id number] 12:10:00 Test Item Value Reference Range Interpretation Comments POC-GLUCOSE METER 75 mg/dL 70-110 TESTED AT [place] [address] ([facility]) (test code = PAUL Tanner [facility] [id number] 1538) POCT-GLUCOSE [id number] 11:26:00 Test Item Value Reference Range Interpretation Comments POC-GLUCOSE METER 36 mg/dL 70-110 LL TESTED AT [place] [address] ([facility]) (test code = NAOMIOR Ciro [facility] [address] 1538) POCT-GLUCOSE [id number] 08:13:00 Test Item Value Reference Range Interpretation Comments POC-GLUCOSE METER 154 mg/dL 70-110 H TESTED AT [place] [address] ([facility]) (test code = [facility] 1538) [address] [id number] 07:24:00 Test Item Value Reference Range Interpretation Comments MAGNESIUM ([facility]) (test code = 1.2 mg/dL 1.6-2.6 L 627) [id number] 07:24:00 Test Item Value Reference Range Interpretation Comments BLOOD UREA NITROGEN ([facility]) (test 23 mg/dL 7-21 H code = 354) [id number] 07:24:00 Test Item Value Reference Range Interpretation Comments CREATININE ([facility]) 0.72 mg/dL 0.57-1.25 (test code = 358) EGFR ([facility]) (test 119 mL/min/1.73 ESTIM ATED GFR IS code = 1092) sq m NOT ACCURATE CREATININE CLEARANCE IN PREDICTING GLOMERULAR FILTRATION RATE . ESTIMATED GFR I S NOT APPLICABLE FOR DIALYSIS PATIEN TS. POCT-GLUCOSE [id number] 21:21:00 Test Item Value Reference Range Interpretation Comments POC-GLUCOSE METER 239 mg/dL 70-110 H TESTED AT [place] [address] ([facility]) (test code = [facility] Ciro [facility] 1538) [address] POCT-GLUCOSE [id number] 17:47:00 Test Item Value Reference Range Interpretation Comments POC-GLUCOSE METER 258 mg/dL 70-110 H TESTED AT [place] [address] ([facility]) (test code = [facility] 1538) [address] CF RESPIRATORY [id number] 16:52:00 Test Item Value Reference Range Interpretation Comments CULTURE (BEAKER) PSEUDOMONAS A 4+ Pseudomo viki (test code = 1095) AERUGINOSA aeruginos a (MUCOID-PHENOTYPE (Mucoid-ph enotype ) ) Amikacin (test code Susceptible 0-16 S = 1) , Resistant <0 or >16 Aztreonam (test Susceptible 0-8 , S code = 32) Resistant <0 or >8 Cefepime (test code Susceptible 0-8 , S = 51) Resistant <0 or >8 Ceftazidime (test Susceptible 0-8 , S code = 27) Resistant <0 or >8 Ciprofloxacin (test Susceptible 0-0.5 R code = 7) , Resistant <0 or >.5 Gentamicin (test Susceptible 0-4 , R code = 18) Resistant <0 or >4 Levofloxacin (test Susceptible 0-1 , R code = 22) Resistant <0 or >1 Meropenem (test Susceptible 0-2 , R code = 34) Resistant <0 or >2 Piperacillin (test Susceptible 0-16 S code = 24) , Resistant <0 or >16 Piperacillin + Susceptible 0-16 S Tazobactam (test , Resistant <0 or code = 29) >16 Tobramycin (test Susceptible 0-4 , S code = 25) Resistant <0 or >4 CULTURE (StaffInsightAKER) PSEUDOMONAS A 4+ Pseudomo viki (test code = 1095) AERUGINOSA aeruginos aof a second type Amikacin (test code Susceptible 0-16 S = 1) , Resistant <0 or >16 Aztreonam (test Susceptible 0-8 , S code = 32) Resistant <0 or >8 Cefepime (test code Susceptible 0-8 , S = 51) Resistant <0 or >8 Ceftazidime (test Susceptible 0-8 , S code = 27) Resistant <0 or >8 Ciprofloxacin (test Susceptible 0-0.5 R code = 7) , Resistant <0 or >.5 Gentamicin (test Susceptible 0-4 , S code = 18) Resistant <0 or >4 Levofloxacin (test Susceptible 0-1 , R code = 22) Resistant <0 or >1 Meropenem (test Susceptible 0-2 , R code = 34) Resistant <0 or >2 Piperacillin (test Susceptible 0-16 S code = 24) , Resistant <0 or >16 Piperacillin + Susceptible 0-16 S Tazobactam (test , Resistant <0 or code = 29) >16 Tobramycin (test Susceptible 0-4 , S code = 25) Resistant <0 or >4 CULTURE (BEAKER) PSEUDOMONAS A 2+ Pseudomo viki (test code = 1095) AERUGINOSA aeruginos aof a third type Amikacin (test code Susceptible 0-16 S = 1) , Resistant <0 or >16 Aztreonam (test Susceptible 0-8 , S code = 32) Resistant <0 or >8 Cefepime (test code Susceptible 0-8 , R = 51) Resistant <0 or >8 Ceftazidime (test Susceptible 0-8 , S code = 27) Resistant <0 or >8 Ciprofloxacin (test Susceptible 0-0.5 S code = 7) , Resistant <0 or >.5 Gentamicin (test Susceptible 0-4 , S code = 18) Resistant <0 or >4 Levofloxacin (test Susceptible 0-1 , R code = 22) Resistant <0 or >1 Meropenem (test Susceptible 0-2 , S code = 34) Resistant <0 or >2 Piperacillin (test Susceptible 0-16 S code = 24) , Resistant <0 or >16 Piperacillin + Susceptible 0-16 S Tazobactam (test , Resistant <0 or code = 29) >16 Tobramycin (test Susceptible 0-4 , S code = 25) Resistant <0 or >4 2+ Normal respiratory derick presentBLOOD [id number] 12:01:00 Test Item Value Reference Range Interpretation Comments CULTURE (BEAKER) (test No growth in 5 days code = 1095) BLOOD [id number] 12:01:00 Test Item Value Reference Range Interpretation Comments CULTURE (BEAKER) (test No growth in 5 days code = 1095) POCT-GLUCOSE [id number] 11:37:00 Test Item Value Reference Range Interpretation Comments POC-GLUCOSE METER 301 mg/dL 70-[address] [facility] 6720 ([employer] App) (test code = [place] 1538) [address] POCT-GLUCOSE [id number] 09:15:00 Test Item Value Reference Range Interpretation Comments POC-GLUCOSE METER 243 mg/dL 70-[address] [facility] 6720 ([employer] App) (test code = PAUL Tanner [facility] 1538) [address] POCT-GLUCOSE [id number] 22:09:00 Test Item Value Reference Range Interpretation Comments POC-GLUCOSE METER 222 mg/dL 70-[address] [facility] 67 ([facility]) (test code = [facility] 1538) [address] POCT-GLUCOSE [id number] 17:13:00 Test Item Value Reference Range Interpretation Comments POC-GLUCOSE METER 294 mg/dL 70-110 H TESTED AT [place] [address] ([facility]) (test code = [facility] 1538) [address] POCT-GLUCOSE [id number] 13:17:00 Test Item Value Reference Range Interpretation Comments POC-GLUCOSE METER 155 mg/dL 70-110 H TESTED AT [place] [address] ([facility]) (test code = [facility] 1538) [address] [id number] 10:11:00 Test Item Value Reference Range Interpretation Comments GLUCOSE RANDOM ([facility]) (test code = 75 mg/dL 70-105 652) [id number] 09:26:00 Test Item Value Reference Range Interpretation Comments MAGNESIUM (BEAKER) 1.3 mg/dL 1.6-2.6 L Specimen slightly (test code = 627) hemolyzed [id number] 09:26:00 Test Item Value Reference Range Interpretation Comments BLOOD UREA NITROGEN ([facility]) (test 13 mg/dL 7-21 code = 354) [id number] 09:26:00 Test Item Value Reference Range Interpretation Comments CREATININE ([facility]) 0.71 mg/dL 0.57-1.25 Specimen slightly (test code = 358) hemolyzed EGFR ([facility]) (test 121 mL/min/1.73 ESTIM ATED GFR IS code = 1092) sq m NOT ACCURATE CREATININE CLEARANCE IN PREDICTING GLOMERULAR FILTRATION RATE . ESTIMATED GFR I S NOT APPLICABLE FOR DIALYSIS PATIEN TS. POCT-GLUCOSE [id number] 08:46:00 Test Item Value Reference Range Interpretation Comments POC-GLUCOSE METER 89 mg/dL 70-[address] [facility] 6720 ([facility]) (test code = [facility] [address] 1538) POCT-GLUCOSE [id number] 22:16:00 Test Item Value Reference Range Interpretation Comments POC-GLUCOSE METER 325 mg/dL 70-110 H Verify wit h Lab ([facility]) (test code = draw/T ESTED AT [facility] 1538) 6720 [facility] [address] POCT-GLUCOSE [id number] 18:08:00 Test Item Value Reference Range Interpretation Comments POC-GLUCOSE METER 423 mg/dL 70-110 HH TESTED AT [place] [id number] ([facility]) (test code = NAOMINE R [facility] 1538) [address] POCT-GLUCOSE [id number] 11:52:00 Test Item Value Reference Range Interpretation Comments POC-GLUCOSE METER > mg/dL 70-110 HH OUTSIDE ME ASURING ([facility]) (test code RANGENot ifidann RUVALCABA MD/TESTED = 1538) AT [place] [address] [facility] 7703 0 [id number] 09:24:00 Test Item Value Reference Range Interpretation Comments MAGNESIUM ([facility]) (test code = 1.1 mg/dL 1.6-2.6 L 627) [id number] 09:24:00 Test Item Value Reference Range Interpretation Comments BLOOD UREA NITROGEN ([facility]) (test 18 mg/dL 7-21 code = 354) [id number] 09:24:00 Test Item Value Reference Range Interpretation Comments CREATININE ([facility]) 0.84 mg/dL 0.57-1.25 (test code = 358) EGFR ([facility]) (test 99 mL/min/1.73 ESTIMA MAGDALENO GFR IS code = 1092) sq m NOT ACCURATE CREATININE CLEARANCE IN PREDICTING GLOMERULAR FILTRATION RATE . ESTIMATED GFR I S NOT APPLICABLE FOR DIALYSIS PATIEN TS. POCT-GLUCOSE [id number] 08:38:00 Test Item Value Reference Range Interpretation Comments POC-GLUCOSE METER 382 mg/dL 70-110 H Notified R Collin STAPLETON/TESTED ([facility]) (test code = AT [facility] 6720 [facility] 1538) [facility] 7703 0 POCT-GLUCOSE [id number] 21:23:00 Test Item Value Reference Range Interpretation Comments POC-GLUCOSE METER > mg/dL 70-110 HH OUTSIDE ME ASURING ([facility]) (test code RANGENot domenica RUVALCABA MD/TESTED = 1538) AT [place] [address] [facility] 7703 0 POCT-GLUCOSE [id number] 17:38:00 Test Item Value Reference Range Interpretation Comments POC-GLUCOSE METER 315 mg/dL 70-110 H Notified R N MD/TESTED (SIMI) (test code = AT [place] [id number] [facility] 1538) [place] [address] 0 [id number] 12:28:00 Test Item Value Reference Range Interpretation Comments MAGNESIUM (BEAKER) (test code = 1.2 mg/dL 1.6-2.6 L 627) POCT-GLUCOSE [id number] 12:11:00 Test Item Value Reference Range Interpretation Comments POC-GLUCOSE METER 371 mg/dL 70-110 H TESTED AT [place] [address] ([facility]) (test code = [place] [address]) [address] SPIN/CONCENTRATION [id number] 12:09:00 Test Item Value Reference Range Interpretation Comments CONCENTRATION CHARGED (SIMI) (test Done code = 2657) POCT-GLUCOSE [id number] 08:51:00 Test Item Value Reference Range Interpretation Comments POC-GLUCOSE METER 403 mg/dL 70-110 HH Notified R N MD/TESTED (SIMI) (test code = AT [place] [address]798) [place] [address] 0 [id number] 06:48:00 Test Item Value Reference Range Interpretation Comments BLOOD UREA NITROGEN (KIAKER) (test 20 mg/dL 7-21 code = 354) [id number] 06:48:00 Test Item Value Reference Range Interpretation Comments CREATININE (BEAKER) 1.05 mg/dL 0.57-1.25 (test code = 358) EGFR (SIMI) (test 77 mL/min/1.73 ESTIMA MAGDALENO GFR IS code = 1092) sq m NOT ACCURATE CREATININE CLEARANCE IN PREDICTING GLOMERULAR FILTRATION RATE . ESTIMATED GFR I S NOT APPLICABLE FOR DIALYSIS PATIEN TS. POCT-GLUCOSE [id number] 23:38:00 Test Item Value Reference Range Interpretation Comments POC-GLUCOSE METER 348 mg/dL 70-110 H Notified R Collin MD/TESTED (SIMI) (test code = AT [place] [id number] [facility] 1538) [place] [address] 0 POCT-GLUCOSE [id number] 21:07:00 Test Item Value Reference Range Interpretation Comments POC-GLUCOSE METER 387 mg/dL 70-110 H Notified R Collin STAPLETON/TESTED (SIMI) (test code = AT [place] [address] [facility] 1538) [facility] 7703 0 POCT-GLUCOSE [id number] 18:15:00 Test Item Value Reference Range Interpretation Comments POC-GLUCOSE METER 495 mg/dL 70-[address] [facility] 6720 (BEAKER) (test code = PAUL R [facility] 1538) [address] HEMOGLOBIN [id number] 17:06:00 Test Item Value Reference Range Interpretation Comments HEMOGLOBIN A1C (BEAKER) (test code = 12.4 % 4.3-6.1 H 368) POCT-GLUCOSE [id number] 15:56:00 Test Item Value Reference Range Interpretation Comments POC-GLUCOSE METER > mg/dL 70-110 HH OUTSIDE ME ASURING (BEAKER) (test code RANGETES MAGDALENO AT [place] [address] = 1538) [facility] [address] RESPIRATORY PANEL [id number] 14:33:00 Test Item Value Reference Range Interpretation Comments HUMAN METAPNEUMOVIRUS Not detected Not detected, (BEAKER) (test code = 2683) Equivocal RHINOVIRUS (BEAKER) (test Not detected Not detected, code = 2684) Equivocal INFLUENZA A (BEAKER) (test Not detected Not detected, code = 2685) Equivocal INFLUENZA A (NO SUBTYPE) Not detected, (test code = 3606) Equivocal INFLUENZA A SUBTYPE H1 Not detected, (BEAKER) (test code = 2686) Equivocal INFLUENZA A SUBTYPE H3 Not detected, (BEAKER) (test code = 2687) Equivocal INFLUENZA A SUBTYPE H1-2009 Not detected, (BEAKER) (test code = 3198) Equivocal INFLUENZA B (BEAKER) (test Not detected Not detected, code = 2688) Equivocal RESPIRATORY SYNCYTIAL VIRUS Not detected Not detected, (BEAKER) (test code = 3199) Equivocal PARAINFLUENZA VIRUS 1 Not detected Not detected, (BEAKER) (test code = 2691) Equivocal PARAINFLUENZA VIRUS 2 Not detected Not detected, (BEAKER) (test code = 2692) Equivocal PARAINFLUENZA VIRUS 3 Not detected Not detected, (BEAKER) (test code = 2693) Equivocal PARAINFLUENZA VIRUS 4 Not detected Not detected, (BEAKER) (test code = 1530) Equivocal ADENOVIRUS (BEAKER) (test Not detected Not detected, code = 2694) Equivocal CORONAVIRUS 229E (BEAKER) Not detected Not detected, (test code = 3201) Equivocal CORONAVIRUS HKU1 (BEAKER) Not detected Not detected, (test code = 3202) Equivocal CORONAVIRUS NL63 (BEAKER) Not detected Not detected, (test code = 3203) Equivocal CORONAVIRUS OC43 (BEAKER) Not detected Not detected, (test code = 3204) Equivocal BORDETELLA PERTUSSIS Not detected Not detected, (BEAKER) (test code = 3205) Equivocal CHLAMYDOPHILA PNEUMONIAE Not detected Not detected, (BEAKER) (test code = 3206) Equivocal MYCOPLASMA PNEUMONIAE Not detected Not detected, (BEAKER) (test code = 3207) Equivocal Other viruses and bacteria not targeted by this PCR panel cannot be excluded; therefore clinical correlation and follow up of serology, culture results, and other molecular studies is required. The results are not intended to be used as the sole means for clinical diagnosis or patient management decisions. This sample was tested at the [facility] Molecular Diagnostics Laboratory using the Spinal SimplicityArray Respiratory Panel. It is FDA cleared and has been verified and approved by the [facility] Molecular Diagnostics Laboratory for clinical use on nasal swab specimens.POCT-GLUCOSE [id number] 11:59:00 Test Item Value Reference Range Interpretation Comments POC-GLUCOSE METER > mg/dL 70-110 HH OUTSIDE ME ASURING (BEAKER) (test code RANGETES MAGDALENO AT [facility] 6720 = 1538) [facility] [address] [id number] 08:16:00 Test Item Value Reference Range Interpretation Comments MAGNESIUM (BEAKER) (test code = 1.3 mg/dL 1.6-2.6 L 627) [id number] 08:16:00 Test Item Value Reference Range Interpretation Comments BLOOD UREA NITROGEN (BEAKER) (test 16 mg/dL 7-21 code = 354) [id number] 08:16:00 Test Item Value Reference Range Interpretation Comments CREATININE (BEAKER) 1.20 mg/dL 0.57-1.25 (test code = 358) EGFR (BEAKER) (test 66 mL/min/1.73 ESTIMA MAGDALENO GFR IS code = 1092) sq m NOT ACCURATE CREATININE CLEARANCE IN PREDICTING GLOMERULAR FILTRATION RATE . ESTIMATED GFR I S NOT APPLICABLE FOR DIALYSIS ADELIA TS. POCT-GLUCOSE [id number] 08:06:00 Test Item Value Reference Range Interpretation Comments POC-GLUCOSE METER > mg/dL 70-110 HH OUTSIDE ME ASURING (BEAKER) (test code RANGETES MAGDALENO AT [facility] 6720 = 1538) ANOMIJAKI [facility] [address] LACTIC ACID, [id number] 07:59:00 Test Item Value Reference Range Interpretation Comments LACTATE BLOOD VENOUS (2) (BEAKER) 1.5 mmol/L 0.5-2.2 (test code = 2872) POCT-GLUCOSE [id number] 21:27:00 Test Item Value Reference Range Interpretation Comments POC-GLUCOSE METER 454 mg/dL 70-110 HH Procedure Error/TESTED (BEAKER) (test code AT [facility] 6720 [facility] = 1538) [facility] 7703 0 POCT-GLUCOSE [id number] 18:12:00 Test Item Value Reference Range Interpretation Comments POC-GLUCOSE METER 121 mg/dL 70-[address] [facility] 6720 (BEAKER) (test code = PAUL Tanner [facility] 1538) [address] SCREEN, [id number] 16:18:00 Test Item Value Reference Range Interpretation Comments TEST URINE (BEAKER) (test Negative code = 583) [id number] 13:03:00 Test Item Value Reference Range Interpretation Comments PHOSPHORUS (BEAKER) 2.8 mg/dL 2.3-4.7 Specimen slightly (test code = 604) hemolyzed COMPREHENSIVE METABOLIC [id number] 13:03:00 Test Item Value Reference Range Interpretation Comments TOTAL PROTEIN 6.9 gm/dL 6.0-8.3 Specimen sligh tly (BEAKER) (test code = hemoly zed 770) ALBUMIN (BEAKER) 2.3 g/dL 3.5-5.0 L Specimen sl ightly (test code = 1145) hemolyzed ALKALINE PHOSPHATASE 139 U/L 40-150 (BEAKER) (test code = 346) BILIRUBIN TOTAL 0.2 mg/dL 0.2-1.2 Specimen sli ghtly (BEAKER) (test code = hemoly zed 377) SODIUM (BEAKER) (test 139 meq/L 136-145 code = 381) POTASSIUM (BEAKER) 3.5 meq/L 3.5-5.1 Specimen slightly (test code = 379) hemolyzed CHLORIDE (BEAKER) 98 meq/L 98-107 (test code = 382) CO2 (BEAKER) (test 33 meq/L 22-29 H code = 355) BLOOD UREA NITROGEN 6 mg/dL 7-21 L (BEAKER) (test code = 354) CREATININE (BEAKER) 0.77 mg/dL 0.57-1.25 Specimen slightly (test code = 358) hemolyzed GLUCOSE RANDOM 240 mg/dL 70-105 H (BEAKER) (test code = 652) CALCIUM (BEAKER) 8.7 mg/dL 8.4-10.2 (test code = 697) AST (SGOT) (BEAKER) 21 U/L 5-34 Specimen slightly (test code = 353) hemolyzed ALT (SGPT) (BEAKER) 6 U/L 6-55 Specimen slightly (test code = 347) hemolyzed EGFR (BEAKER) (test 110 ESTIMATE D GFR IS code = 1092) mL/min/1.73 sq NOT ACCURA TE m CREATININE CLEARANCE IN PREDICTING GLOMERULAR FILTRATION RATE . ESTIMATED GFR I S NOT APPLICABLE FOR DIALYSIS PATIEN TS. GAMMA GLUTAMYL TRANSFERASE (GGT)2019-02-26 13:03:00 Test Item Value Reference Range Interpretation Comments GAMMA GLUTAMYL 23 U/L 9-64 Specimen slig htly TRANSFERASE (BEAKER) hemolyz ed (test code = 364) CBC W/PLT COUNT & AUTO [id number] 12:51:00 Test Item Value Reference Range Interpretation Comments WHITE BLOOD CELL COUNT (BEAKER) 13.4 K/ L 3.5-10.5 H (test code = 775) RED BLOOD CELL COUNT (BEAKER) 3.62 M/ L 3.93-5.22 L (test code = 761) HEMOGLOBIN (BEAKER) (test code = 9.4 GM/DL 11.2-15.7 L 410) HEMATOCRIT (BEAKER) (test code = 31.4 % 34.1-44.9 L 411) MEAN CORPUSCULAR VOLUME (BEAKER) 86.7 fL 79.4-94.8 (test code = 753) MEAN CORPUSCULAR HEMOGLOBIN 26.0 pg 25.6-32.2 (BEAKER) (test code = 751) MEAN CORPUSCULAR HEMOGLOBIN CONC 29.9 GM/DL 32.2-35.5 L (BEAKER) (test code = 752) RED CELL DISTRIBUTION WIDTH 15.3 % 11.7-14.4 H (BEAKER) (test code = 412) PLATELET COUNT (BEAKER) (test 330 K/CU MM 150-450 code = 756) MEAN PLATELET VOLUME (BEAKER) 12.1 fL 9.4-12.3 (test code = 754) NUCLEATED RED BLOOD CELLS 0 /100 WBC 0-0 (BEAKER) (test code = 413) NEUTROPHILS RELATIVE PERCENT 81 % (BEAKER) (test code = 429) LYMPHOCYTES RELATIVE PERCENT 10 % (BEAKER) (test code = 430) MONOCYTES RELATIVE PERCENT 6 % (BEAKER) (test code = 431) EOSINOPHILS RELATIVE PERCENT 2 % (BEAKER) (test code = 432) BASOPHILS RELATIVE PERCENT 0 % (BEAKER) (test code = 437) NEUTROPHILS ABSOLUTE COUNT 10.85 K/ L 1.56-6.13 H (BEAKER) (test code = 670) LYMPHOCYTES ABSOLUTE COUNT 1.35 K/ L 1.18-3.74 (BEAKER) (test code = 414) MONOCYTES ABSOLUTE COUNT (BEAKER) 0.78 K/ L 0.24-0.36 H (test code = 415) EOSINOPHILS ABSOLUTE COUNT 0.31 K/ L 0.04-0.36 (BEAKER) (test code = 416) BASOPHILS ABSOLUTE COUNT (BEAKER) 0.04 K/ L 0.01-0.08 (test code = 417) IMMATURE GRANULOCYTES-RELATIVE 1 % 0-1 PERCENT (BEAKER) (test code = 2801) POCT-GLUCOSE [id number] 12:25:00 Test Item Value Reference Range Interpretation Comments POC-GLUCOSE METER 233 mg/dL 70-[address] [facility] 6720 (BEAKER) (test code = PAUL Tanner [place] 1538) [address] [id number] 09:48:00 Test Item Value Reference Range Interpretation Comments MAGNESIUM (BEAKER) (test code = 0.8 mg/dL 1.6-2.6 LL 627) BASIC METABOLIC [id number] 09:47:00 Test Item Value Reference Range Interpretation Comments SODIUM (BEAKER) 136 meq/L 136-145 (test code = 381) POTASSIUM (BEAKER) 3.3 meq/L 3.5-5.1 L (test code = 379) CHLORIDE (BEAKER) 96 meq/L 98-107 L (test code = 382) CO2 (BEAKER) (test 32 meq/L 22-29 H code = 355) BLOOD UREA NITROGEN 7 mg/dL 7-21 (BEAKER) (test code = 354) CREATININE (BEAKER) 0.80 mg/dL 0.57-1.25 (test code = 358) GLUCOSE RANDOM 382 mg/dL 70-105 H (BEAKER) (test code = 652) CALCIUM (BEAKER) 7.8 mg/dL 8.4-10.2 L (test code = 697) EGFR (BEAKER) (test 105 mL/min/1.73 ESTIM ATED GFR IS code = 1092) sq m NOT ACCURATE CREATININE CLEARANCE IN PREDICTING GLOMERULAR FILTRATION RATE . ESTIMATED GFR I S NOT APPLICABLE FOR DIALYSIS PATIEN TS. TROPONIN [id number] 09:34:00 Test Item Value Reference Range Interpretation Comments TROPONIN I (BEAKER) (test code = 397) < ng/mL 0.00-0.03 Troponin I (TnI) levels [...] neurological disease, and persistent tachyarrhythmia.RAPID INFLUENZA A&B [id number] 09:32:00 Test Item Value Reference Range Interpretation Comments RAPID INFLUENZA A AG (BEAKER) Negative Negative, Inconclusive (test code = 1622) RAPID INFLUENZA B AG (BEAKER) Negative Negative, Inconclusive (test code = 1623) RAD, CHEST, 1 VIEW, NON [id number] 09:29:00Reason for exam:->COUGHReason for exam:->SHORTNESS OF BREATHIs the patient ?->NoFINAL REPORT AP chest HISTORY: Shortness of breath. COMPARISON: 01/03/2018. IMPRESSION: Chest port present. Diffuse bronchiectasis similar to previous. No superimposed acute infiltrate. Heart size within normal limits. No effusion or pneumothorax. Signed: Volodymyr OlivarezeportVerified Date/Time: 02/26/2019 09:29:34 Reading Location: [facility] [id number] Transitional Reading Room El ectronically signed by: VOLODYMYR OLIVAREZ M.D. on 02/26/2019 09:29 AM [id number] 09:18:00 Test Item Value Reference Range Interpretation Comments PROTIME (BEAKER) (test code = 15.0 seconds 11.7-14.7 H 759) INR (BEAKER) (test code = 370) 1.2 <=5.9 PARTIAL THROMBOPLASTIN TIME 34.9 seconds 22.5-36.0 (BEAKER) (test code = 760) RECOMMENDED COUMADIN/WARFARIN INR THERAPY RANGESSTANDARD DOSE: 2.0 - 3.0 Includes: PROPHYLAXIS forvenous thrombosis, systemic embolization; TREATMENT for venous thrombosis and/or pulmonary embolus.HIGH RISK: Target INR is 2.5-3.5 for patients with mechanical heart valves.CBC W/PLT COUNT & AUTO DIFFERENTIAL 2019-02-26 09:17:00 Test Item Value Reference Range Interpretation Comments WHITE BLOOD CELL COUNT (BEAKER) 12.6 K/ L 3.5-10.5 H (test code = 775) RED BLOOD CELL COUNT (BEAKER) 3.65 M/ L 3.93-5.22 L (test code = 761) HEMOGLOBIN (BEAKER) (test code = 9.4 GM/DL 11.2-15.7 L 410) HEMATOCRIT (BEAKER) (test code = 31.6 % 34.1-44.9 L 411) MEAN CORPUSCULAR VOLUME (BEAKER) 86.6 fL 79.4-94.8 (test code = 753) MEAN CORPUSCULAR HEMOGLOBIN 25.8 pg 25.6-32.2 (BEAKER) (test code = 751) MEAN CORPUSCULAR HEMOGLOBIN CONC 29.7 GM/DL 32.2-35.5 L (BEAKER) (test code = 752) RED CELL DISTRIBUTION WIDTH 15.5 % 11.7-14.4 H (BEAKER) (test code = 412) PLATELET COUNT (BEAKER) (test 339 K/CU MM 150-450 code = 756) MEAN PLATELET VOLUME (BEAKER) 11.7 fL 9.4-12.3 (test code = 754) NUCLEATED RED BLOOD CELLS 0 /100 WBC 0-0 (BEAKER) (test code = 413) NEUTROPHILS RELATIVE PERCENT 81 % (BEAKER) (test code = 429) LYMPHOCYTES RELATIVE PERCENT 9 % (BEAKER) (test code = 430) MONOCYTES RELATIVE PERCENT 6 % (BEAKER) (test code = 431) EOSINOPHILS RELATIVE PERCENT 3 % (BEAKER) (test code = 432) BASOPHILS RELATIVE PERCENT 0 % (BEAKER) (test code = 437) NEUTROPHILS ABSOLUTE COUNT 10.20 K/ L 1.56-6.13 H (BEAKER) (test code = 670) LYMPHOCYTES ABSOLUTE COUNT 1.17 K/ L 1.18-3.74 L (BEAKER) (test code = 414) MONOCYTES ABSOLUTE COUNT (BEAKER) 0.77 K/ L 0.24-0.36 H (test code = 415) EOSINOPHILS ABSOLUTE COUNT 0.40 K/ L 0.04-0.36 H (BEAKER) (test code = 416) BASOPHILS ABSOLUTE COUNT (BEAKER) 0.03 K/ L 0.01-0.08 (test code = 417) IMMATURE GRANULOCYTES-RELATIVE 1 % 0-1 PERCENT (BEAKER) (test code = 2801) POCT-LACTIC ACID, [id number] 09:05:00 Test Item Value Reference Range Interpretation Comments POC-LACTIC ACID, 1.6 mmol/L 0.9-1.7 TESTED AT [facility] [address] ([facility]) (test [facility] code = 2805) [address] AFB CULTURE + [id number] 16:02:00 Test Item Value Reference Range Interpretation Comments CULTURE (BEAKER) (test No acid-fast bacilli code = 1095) isolated in 42 days AFB SMEAR (BEAKER) No acid fast bacilli (test code = 994) seen FUNGUS CULTURE + [id number] 18:23:00 Test Item Value Reference Range Interpretation Comments CULTURE (BEAKER) A 3+ Clau (test code = 1095) lisa sis FUNGUS SMEAR No fungi seen (AKER) (test code = 1406) POCT-GLUCOSE [id number] 21:56:00 Test Item Value Reference Range Interpretation Comments POC-GLUCOSE METER 215 mg/dL 70-[address] [facility] [address] ([facility]) (test code = [facility] [place] 1538) [id number] POCT-GLUCOSE [id number] 17:25:00 Test Item Value Reference Range Interpretation Comments POC-GLUCOSE METER 214 mg/dL 70-[address] [facility] 67 (BEAKER) (test code = PAUL T[facility] 1538) [address] POCT-GLUCOSE [id number] 13:42:00 Test Item Value Reference Range Interpretation Comments POC-GLUCOSE METER 161 mg/dL 70-110 H TESTED AT [place] [address] (BEAKER) (test code = PAUL Tanner [facility] 1538) [address] CBC W/PLT COUNT & AUTO [id number] 11:14:00 Test Item Value Reference Range Interpretation Comments WHITE BLOOD CELL COUNT (BEAKER) 11.2 K/ L 3.5-10.5 H (test code = 775) RED BLOOD CELL COUNT (BEAKER) 3.41 M/ L 3.93-5.22 L (test code = 761) HEMOGLOBIN (BEAKER) (test code = 9.0 GM/DL 11.2-15.7 L 410) HEMATOCRIT (BEAKER) (test code = 30.4 % 34.1-44.9 L 411) MEAN CORPUSCULAR VOLUME (BEAKER) 89.1 fL 79.4-94.8 (test code = 753) MEAN CORPUSCULAR HEMOGLOBIN 26.4 pg 25.6-32.2 (BEAKER) (test code = 751) MEAN CORPUSCULAR HEMOGLOBIN CONC 29.6 GM/DL 32.2-35.5 L (BEAKER) (test code = 752) RED CELL DISTRIBUTION WIDTH 16.7 % 11.7-14.4 H (BEAKER) (test code = 412) PLATELET COUNT (BEAKER) (test 363 K/CU MM 150-450 code = 756) MEAN PLATELET VOLUME (BEAKER) 11.8 fL 9.4-12.3 (test code = 754) NUCLEATED RED BLOOD CELLS 0 /100 WBC 0-0 (BEAKER) (test code = 413) NEUTROPHILS RELATIVE PERCENT 53 % (BEAKER) (test code = 429) LYMPHOCYTES RELATIVE PERCENT 28 % (BEAKER) (test code = 430) MONOCYTES RELATIVE PERCENT 10 % (BEAKER) (test code = 431) EOSINOPHILS RELATIVE PERCENT 8 % (BEAKER) (test code = 432) BASOPHILS RELATIVE PERCENT 0 % (BEAKER) (test code = 437) NEUTROPHILS ABSOLUTE COUNT 5.87 K/ L 1.56-6.13 (BEAKER) (test code = 670) LYMPHOCYTES ABSOLUTE COUNT 3.15 K/ L 1.18-3.74 (BEAKER) (test code = 414) MONOCYTES ABSOLUTE COUNT (BEAKER) 1.13 K/ L 0.24-0.36 H (test code = 415) EOSINOPHILS ABSOLUTE COUNT 0.89 K/ L 0.04-0.36 H (BEAKER) (test code = 416) BASOPHILS ABSOLUTE COUNT (BEAKER) 0.05 K/ L 0.01-0.08 (test code = 417) IMMATURE GRANULOCYTES-RELATIVE 1 % 0-1 PERCENT (BEAKER) (test code = 2801) [id number] 11:00:00 Test Item Value Reference Range Interpretation Comments MAGNESIUM (BEAKER) (test code = 1.1 mg/dL 1.6-2.6 L 627) COMPREHENSIVE METABOLIC [id number] 11:00:00 Test Item Value Reference Range Interpretation Comments TOTAL PROTEIN 6.0 gm/dL 6.0-8.3 (BEAKER) (test code = 770) ALBUMIN (BEAKER) 2.6 g/dL 3.5-5.0 L (test code = 1145) ALKALINE PHOSPHATASE 83 U/L 40-150 (BEAKER) (test code = 346) BILIRUBIN TOTAL 0.1 mg/dL 0.2-1.2 L (BEAKER) (test code = 377) SODIUM (BEAKER) (test 136 meq/L 136-145 code = 381) POTASSIUM (BEAKER) 5.0 meq/L 3.5-5.1 (test code = 379) CHLORIDE (BEAKER) 96 meq/L 98-107 L (test code = 382) CO2 (BEAKER) (test 36 meq/L 22-29 H code = 355) BLOOD UREA NITROGEN 13 mg/dL 7-21 (BEAKER) (test code = 354) CREATININE (BEAKER) 0.68 mg/dL 0.57-1.25 (test code = 358) GLUCOSE RANDOM 263 mg/dL 70-105 H (BEAKER) (test code = 652) CALCIUM (BEAKER) 8.8 mg/dL 8.4-10.2 (test code = 697) AST (SGOT) ([facility]) 20 U/L 5-34 (test code = 353) ALT (SGPT) ([facility]) 28 U/L 6-55 (test code = 347) EGFR ([facility]) (test 127 ESTIMATE D GFR IS code = 1092) mL/min/1.73 sq NOT ACCURA TE m CREATININE CLEARANCE IN PREDICTING GLOMERULAR FILTRATION RATE . ESTIMATED GFR I S NOT APPLICABLE FOR DIALYSIS PATIEN TS. POCT-GLUCOSE [id number] 09:18:00 Test Item Value Reference Range Interpretation Comments POC-GLUCOSE METER 161 mg/dL 70-110 H TESTED AT [place] [address] ([facility]) (test code = [employer] [place] 1538) [id number] POCT-GLUCOSE [id number] 22:02:00 Test Item Value Reference Range Interpretation Comments POC-GLUCOSE METER 252 mg/dL 70-110 H TESTED AT [place] [address] ([facility]) (test code = [employer] [place] 1538) [address] POCT-GLUCOSE [id number] 17:39:00 Test Item Value Reference Range Interpretation Comments POC-GLUCOSE METER 317 mg/dL 70-110 H TESTED AT [place] [address] ([facility]) (test code = [employer] [place] 15[place]) [address] POCT-GLUCOSE [id number] 12:53:00 Test Item Value Reference Range Interpretation Comments POC-GLUCOSE METER 230 mg/dL 70-110 H TESTED AT [place] [address] ([facility]) (test code = [employer] [place]) [address] POCT-GLUCOSE [id number] 10:09:00 Test Item Value Reference Range Interpretation Comments POC-GLUCOSE METER 242 mg/dL 70-110 H TESTED AT [place] [address] ([facility]) (test code = [employer] [place] 1538) [address] POCT-GLUCOSE [id number] 09:36:00 Test Item Value Reference Range Interpretation Comments POC-GLUCOSE METER 53 mg/dL 70-110 L TESTED AT [place] [address] ([facility]) (test code = [place] [address]38) POCT-GLUCOSE [id number] 22:29:00 Test Item Value Reference Range Interpretation Comments POC-GLUCOSE METER 197 mg/dL 70-110 H TESTED AT [place] [address] (BEAKER) (test code = PAUL Tanner [place] 1538) [address] POCT-GLUCOSE [id number] 17:51:00 Test Item Value Reference Range Interpretation Comments POC-GLUCOSE METER 292 mg/dL 70-110 H TESTED AT [place] [address] (BEAKER) (test code = PAUL Tanner [place] 1538) [address] B-TYPE NATRIURETIC FACTOR (BNP)[id number] 17:20:00 Test Item Value Reference Range Interpretation Comments B-TYPE NATRIURETIC PEPTIDE (BEAKER) 119 pg/mL 0-100 H (test code = 700) [id number] 17:16:00 Test Item Value Reference Range Interpretation Comments MAGNESIUM (BEAKER) (test code = 1.0 mg/dL 1.6-2.6 LL 627) POCT-GLUCOSE [id number] 13:12:00 Test Item Value Reference Range Interpretation Comments POC-GLUCOSE METER 266 mg/dL 70-110 H TESTED AT [place] [address] ([facility]) (test code = [facility] Ciro [facility] 1538) [address] COMPREHENSIVE METABOLIC [id number] 09:09:00 Test Item Value Reference Range Interpretation Comments TOTAL PROTEIN 6.1 gm/dL 6.0-8.3 (BEAKER) (test code = 770) ALBUMIN (BEAKER) 2.6 g/dL 3.5-5.0 L (test code = 1145) ALKALINE PHOSPHATASE 87 U/L 40-150 (BEAKER) (test code = 346) BILIRUBIN TOTAL < mg/dL 0.2-1.2 L (BEAKER) (test code = 377) SODIUM (BEAKER) (test 139 meq/L 136-145 code = 381) POTASSIUM (BEAKER) 4.8 meq/L 3.5-5.1 (test code = 379) CHLORIDE (BEAKER) 100 meq/L 98-107 (test code = 382) CO2 (BEAKER) (test 30 meq/L 22-29 H code = 355) BLOOD UREA NITROGEN 20 mg/dL 7-21 (BEAKER) (test code = 354) CREATININE (BEAKER) 0.63 mg/dL 0.57-1.25 (test code = 358) GLUCOSE RANDOM 193 mg/dL 70-105 H (BEAKER) (test code = 652) CALCIUM (BEAKER) 8.4 mg/dL 8.4-10.2 (test code = 697) AST (SGOT) (BEAKER) 48 U/L 5-34 H (test code = 353) ALT (SGPT) (BEAKER) 31 U/L 6-55 (test code = 347) EGFR (BEAKER) (test 138 ESTIMATE D GFR IS code = 1092) mL/min/1.73 sq NOT ACCURA TE m CREATININE CLEARANCE IN PREDICTING GLOMERULAR FILTRATION RATE . ESTIMATED GFR I S NOT APPLICABLE FOR DIALYSIS PATIEN TS. [id number] 09:02:00 Test Item Value Reference Range Interpretation Comments MAGNESIUM (BEAKER) (test code = 1.4 mg/dL 1.6-2.6 L 627) CBC W/PLT COUNT & AUTO [id number] 07:56:00 Test Item Value Reference Range Interpretation Comments WHITE BLOOD CELL COUNT (BEAKER) 11.9 K/ L 3.5-10.5 H (test code = 775) RED BLOOD CELL COUNT (BEAKER) 3.32 M/ L 3.93-5.22 L (test code = 761) HEMOGLOBIN (BEAKER) (test code = 8.7 GM/DL 11.2-15.7 L 410) HEMATOCRIT (BEAKER) (test code = 29.8 % 34.1-44.9 L 411) MEAN CORPUSCULAR VOLUME (BEAKER) 89.8 fL 79.4-94.8 (test code = 753) MEAN CORPUSCULAR HEMOGLOBIN 26.2 pg 25.6-32.2 (BEAKER) (test code = 751) MEAN CORPUSCULAR HEMOGLOBIN CONC 29.2 GM/DL 32.2-35.5 L (BEAKER) (test code = 752) RED CELL DISTRIBUTION WIDTH 16.6 % 11.7-14.4 H (BEAKER) (test code = 412) PLATELET COUNT (BEAKER) (test 355 K/CU MM 150-450 code = 756) MEAN PLATELET VOLUME (BEAKER) 11.9 fL 9.4-12.3 (test code = 754) NUCLEATED RED BLOOD CELLS 0 /100 WBC 0-0 (BEAKER) (test code = 413) NEUTROPHILS RELATIVE PERCENT 66 % (BEAKER) (test code = 429) LYMPHOCYTES RELATIVE PERCENT 20 % (BEAKER) (test code = 430) MONOCYTES RELATIVE PERCENT 10 % (BEAKER) (test code = 431) EOSINOPHILS RELATIVE PERCENT 4 % (BEAKER) (test code = 432) BASOPHILS RELATIVE PERCENT 0 % (BEAKER) (test code = 437) NEUTROPHILS ABSOLUTE COUNT 7.85 K/ L 1.56-6.13 H (BEAKER) (test code = 670) LYMPHOCYTES ABSOLUTE COUNT 2.33 K/ L 1.18-3.74 (BEAKER) (test code = 414) MONOCYTES ABSOLUTE COUNT (BEAKER) 1.15 K/ L 0.24-0.36 H (test code = 415) EOSINOPHILS ABSOLUTE COUNT 0.42 K/ L 0.04-0.36 H (BEAKER) (test code = 416) BASOPHILS ABSOLUTE COUNT (BEAKER) 0.04 K/ L 0.01-0.08 (test code = 417) IMMATURE GRANULOCYTES-RELATIVE 1 % 0-1 PERCENT (BEAKER) (test code = 2801) POCT-GLUCOSE [id number] 07:53:00 Test Item Value Reference Range Interpretation Comments POC-GLUCOSE METER 151 mg/dL 70-[address] [facility] 67[address] (BEAKER) (test code = [place] 1538) [id number] 23:34:00 Test Item Value Reference Range Interpretation Comments MAGNESIUM (BEAKER) (test code = 2.0 mg/dL 1.6-2.6 627) POCT-GLUCOSE [id number] 21:32:00 Test Item Value Reference Range Interpretation Comments POC-GLUCOSE METER 225 mg/dL 70-[address] [facility] 6720 (BEAKER) (test code = [place] 1538) [address] POCT-GLUCOSE [id number] 17:27:00 Test Item Value Reference Range Interpretation Comments POC-GLUCOSE METER 209 mg/dL 70-[address] [facility] 6720 (BEAKER) (test code = [place] 1538) [address] POCT-GLUCOSE [id number] 12:13:00 Test Item Value Reference Range Interpretation Comments POC-GLUCOSE METER 181 mg/dL 70-[address] [facility] 6720 (BEAKER) (test code = [place] 1538) [address] [id number] 09:28:00 Test Item Value Reference Range Interpretation Comments MAGNESIUM (BEAKER) (test code = 1.7 mg/dL 1.6-2.6 627) COMPREHENSIVE METABOLIC [id number] 09:28:00 Test Item Value Reference Range Interpretation Comments TOTAL PROTEIN 7.1 gm/dL 6.0-8.3 (BEAKER) (test code = 770) ALBUMIN (BEAKER) 2.8 g/dL 3.5-5.0 L (test code = 1145) ALKALINE PHOSPHATASE 103 U/L 40-150 (BEAKER) (test code = 346) BILIRUBIN TOTAL 0.1 mg/dL 0.2-1.2 L (BEAKER) (test code = 377) SODIUM (BEAKER) (test 137 meq/L 136-145 code = 381) POTASSIUM (BEAKER) 4.7 meq/L 3.5-5.1 (test code = 379) CHLORIDE (BEAKER) 98 meq/L 98-107 (test code = 382) CO2 (BEAKER) (test 35 meq/L 22-29 H code = 355) BLOOD UREA NITROGEN 20 mg/dL 7-21 (BEAKER) (test code = 354) CREATININE (BEAKER) 0.63 mg/dL 0.57-1.25 (test code = 358) GLUCOSE RANDOM 157 mg/dL 70-105 H (BEAKER) (test code = 652) CALCIUM (BEAKER) 9.0 mg/dL 8.4-10.2 (test code = 697) AST (SGOT) (BEAKER) 46 U/L 5-34 H (test code = 353) ALT (SGPT) (BEAKER) 26 U/L 6-55 (test code = 347) EGFR (BEAKER) (test 138 ESTIMATE D GFR IS code = 1092) mL/min/1.73 sq NOT ACCURA TE m CREATININE CLEARANCE IN PREDICTING GLOMERULAR FILTRATION RATE . ESTIMATED GFR I S NOT APPLICABLE FOR DIALYSIS PATIEN TS. CBC W/PLT COUNT & AUTO [id number] 09:02:00 Test Item Value Reference Range Interpretation Comments WHITE BLOOD CELL COUNT (BEAKER) 14.1 K/ L 3.5-10.5 H (test code = 775) RED BLOOD CELL COUNT (BEAKER) 3.75 M/ L 3.93-5.22 L (test code = 761) HEMOGLOBIN (BEAKER) (test code = 9.9 GM/DL 11.2-15.7 L 410) HEMATOCRIT (BEAKER) (test code = 33.6 % 34.1-44.9 L 411) MEAN CORPUSCULAR VOLUME (BEAKER) 89.6 fL 79.4-94.8 (test code = 753) MEAN CORPUSCULAR HEMOGLOBIN 26.4 pg 25.6-32.2 (BEAKER) (test code = 751) MEAN CORPUSCULAR HEMOGLOBIN CONC 29.5 GM/DL 32.2-35.5 L (BEAKER) (test code = 752) RED CELL DISTRIBUTION WIDTH 16.0 % 11.7-14.4 H (BEAKER) (test code = 412) PLATELET COUNT (BEAKER) (test 399 K/CU MM 150-450 code = 756) MEAN PLATELET VOLUME (BEAKER) 11.3 fL 9.4-12.3 (test code = 754) NUCLEATED RED BLOOD CELLS 0 /100 WBC 0-0 (BEAKER) (test code = 413) NEUTROPHILS RELATIVE PERCENT 66 % (BEAKER) (test code = 429) LYMPHOCYTES RELATIVE PERCENT 19 % (BEAKER) (test code = 430) MONOCYTES RELATIVE PERCENT 10 % (BEAKER) (test code = 431) EOSINOPHILS RELATIVE PERCENT 4 % (BEAKER) (test code = 432) BASOPHILS RELATIVE PERCENT 0 % (BEAKER) (test code = 437) NEUTROPHILS ABSOLUTE COUNT 9.30 K/ L 1.56-6.13 H (BEAKER) (test code = 670) LYMPHOCYTES ABSOLUTE COUNT 2.69 K/ L 1.18-3.74 (BEAKER) (test code = 414) MONOCYTES ABSOLUTE COUNT (BEAKER) 1.37 K/ L 0.24-0.36 H (test code = 415) EOSINOPHILS ABSOLUTE COUNT 0.59 K/ L 0.04-0.36 H (BEAKER) (test code = 416) BASOPHILS ABSOLUTE COUNT (BEAKER) 0.04 K/ L 0.01-0.08 (test code = 417) IMMATURE GRANULOCYTES-RELATIVE 1 % 0-1 PERCENT (BEAKER) (test code = 2801) POCT-GLUCOSE [id number] 08:10:00 Test Item Value Reference Range Interpretation Comments POC-GLUCOSE METER 99 mg/dL 70-[address] [facility] 6720 (BEAKER) (test code = PAUL Tanner [facility] [address] 1538) POCT-GLUCOSE [id number] 21:12:00 Test Item Value Reference Range Interpretation Comments POC-GLUCOSE METER 341 mg/dL 70-110 H Notified Ciro Polanco MD/TESTED (BEAKER) (test code = AT [facility] 67[address] [facility] 1538) [facility] [address] 0 POCT-GLUCOSE [id number] 17:38:00 Test Item Value Reference Range Interpretation Comments POC-GLUCOSE METER 403 mg/dL 70-110 HH Notified Ciro Polanco MD/TESTED (BEAKER) (test code = AT [facility] 67[address] [facility] 1538) [facility] 7703 0 BLOOD GAS, [id number] 12:53:00 Test Item Value Reference Range Interpretation Comments PH VENOUS (BEAKER) (test code = 7.35 7.32-7.42 701) PCO2 VENOUS (BEAKER) (test code = 68 mmHg 41-51 H 755) PO2 VENOUS (BEAKER) (test code = 42 mmHg 25-40 H 702) O2 SATURATION VENOUS (BEAKER) 73.6 % 40.0-70.0 H (test code = 703) HCO3 VENOUS (BEAKER) (test code = 37 mmol/L 21-29 H 705) BASE EXCESS VENOUS (BEAKER) (test 8.9 mmol/L -2.0-3.0 H code = 704) PATIENT TEMPERATURE (BEAKER) (test 37.0 C code = 1818) FIO2 (BEAKER) (test code = 1819) 100.0 % POCT-GLUCOSE [id number] 12:00:00 Test Item Value Reference Range Interpretation Comments POC-GLUCOSE METER 274 mg/dL 70-[address] [facility] 6720 (BEAKER) (test code = PAUL Tanner [facility] 1538) [address] [id number] 11:20:00 Test Item Value Reference Range Interpretation Comments MAGNESIUM (BEAKER) (test code = 1.3 mg/dL 1.6-2.6 L 627) COMPREHENSIVE METABOLIC [id number] 11:20:00 Test Item Value Reference Range Interpretation Comments TOTAL PROTEIN 6.0 gm/dL 6.0-8.3 (BEAKER) (test code = 770) ALBUMIN (BEAKER) 2.3 g/dL 3.5-5.0 L (test code = 1145) ALKALINE PHOSPHATASE 89 U/L 40-150 (BEAKER) (test code = 346) BILIRUBIN TOTAL < mg/dL 0.2-1.2 L (BEAKER) (test code = 377) SODIUM (BEAKER) (test 138 meq/L 136-145 code = 381) POTASSIUM (BEAKER) 4.2 meq/L 3.5-5.1 (test code = 379) CHLORIDE (BEAKER) 97 meq/L 98-107 L (test code = 382) CO2 (BEAKER) (test 32 meq/L 22-29 H code = 355) BLOOD UREA NITROGEN 17 mg/dL 7-21 (BEAKER) (test code = 354) CREATININE (BEAKER) 0.70 mg/dL 0.57-1.25 (test code = 358) GLUCOSE RANDOM 241 mg/dL 70-105 H (BEAKER) (test code = 652) CALCIUM (BEAKER) 8.3 mg/dL 8.4-10.2 L (test code = 697) AST (SGOT) (BEAKER) 28 U/L 5-34 (test code = 353) ALT (SGPT) (BEAKER) 17 U/L 6-55 (test code = 347) EGFR (BEAKER) (test 123 ESTIMATE D GFR IS code = 1092) mL/min/1.73 sq NOT ACCURA TE m CREATININE CLEARANCE IN PREDICTING GLOMERULAR FILTRATION RATE . ESTIMATED GFR I S NOT APPLICABLE FOR DIALYSIS PATIEN TS. CBC W/PLT COUNT & AUTO [id number] 10:42:00 Test Item Value Reference Range Interpretation Comments WHITE BLOOD CELL COUNT (BEAKER) 9.5 K/ L 3.5-10.5 (test code = 775) RED BLOOD CELL COUNT (BEAKER) 3.52 M/ L 3.93-5.22 L (test code = 761) HEMOGLOBIN (BEAKER) (test code = 9.5 GM/DL 11.2-15.7 L 410) HEMATOCRIT (BEAKER) (test code = 31.8 % 34.1-44.9 L 411) MEAN CORPUSCULAR VOLUME (BEAKER) 90.3 fL 79.4-94.8 (test code = 753) MEAN CORPUSCULAR HEMOGLOBIN 27.0 pg 25.6-32.2 (BEAKER) (test code = 751) MEAN CORPUSCULAR HEMOGLOBIN CONC 29.9 GM/DL 32.2-35.5 L (BEAKER) (test code = 752) RED CELL DISTRIBUTION WIDTH 15.8 % 11.7-14.4 H (BEAKER) (test code = 412) PLATELET COUNT (BEAKER) (test 343 K/CU MM 150-450 code = 756) MEAN PLATELET VOLUME (BEAKER) 11.4 fL 9.4-12.3 (test code = 754) NUCLEATED RED BLOOD CELLS 0 /100 WBC 0-0 (BEAKER) (test code = 413) NEUTROPHILS RELATIVE PERCENT 54 % (BEAKER) (test code = 429) LYMPHOCYTES RELATIVE PERCENT 27 % (BEAKER) (test code = 430) MONOCYTES RELATIVE PERCENT 10 % (BEAKER) (test code = 431) EOSINOPHILS RELATIVE PERCENT 8 % (BEAKER) (test code = 432) BASOPHILS RELATIVE PERCENT 1 % (BEAKER) (test code = 437) NEUTROPHILS ABSOLUTE COUNT 5.15 K/ L 1.56-6.13 (BEAKER) (test code = 670) LYMPHOCYTES ABSOLUTE COUNT 2.58 K/ L 1.18-3.74 (BEAKER) (test code = 414) MONOCYTES ABSOLUTE COUNT (BEAKER) 0.92 K/ L 0.24-0.36 H (test code = 415) EOSINOPHILS ABSOLUTE COUNT 0.74 K/ L 0.04-0.36 H (BEAKER) (test code = 416) BASOPHILS ABSOLUTE COUNT (BEAKER) 0.06 K/ L 0.01-0.08 (test code = 417) IMMATURE GRANULOCYTES-RELATIVE 1 % 0-1 PERCENT (BEAKER) (test code = 2801) POCT-GLUCOSE [id number] 08:13:00 Test Item Value Reference Range Interpretation Comments POC-GLUCOSE METER 135 mg/dL 70-[address] [facility] 6720 ([facility]) (test code = [place] 1538) [address] POCT-GLUCOSE [id number] 21:28:00 Test Item Value Reference Range Interpretation Comments POC-GLUCOSE METER 175 mg/dL 70-[address] [facility] 6720 ([facility]) (test code = [place] 1538) [address] BLOOD GAS, [id number] 18:33:00 Test Item Value Reference Range Interpretation Comments PH VENOUS (BEAKER) (test code = 7.38 7.32-7.42 701) PCO2 VENOUS (BEAKER) (test code = 59 mmHg 41-51 H 755) PO2 VENOUS (BEAKER) (test code = 43 mmHg 25-40 H 702) O2 SATURATION VENOUS (BEAKER) 77.0 % 40.0-70.0 H (test code = 703) HCO3 VENOUS (BEAKER) (test code = 34 mmol/L 21-29 H 705) BASE EXCESS VENOUS (BEAKER) (test 7.2 mmol/L -2.0-3.0 H code = 704) PATIENT TEMPERATURE (BEAKER) (test 36.8 C code = 1818) FIO2 (BEAKER) (test code = 1819) 32.0 % POCT-GLUCOSE [id number] 18:31:00 Test Item Value Reference Range Interpretation Comments POC-GLUCOSE METER 349 mg/dL 70-110 H Notified R Collin STAPLETON/TESTED (BEAKER) (test code = AT [facility] [address] [place] 1538) [facility] [address] 0 [id number] 16:27:00 Test Item Value Reference Range Interpretation Comments MAGNESIUM (BEAKER) 2.8 mg/dL 1.6-2.6 H Specimen slightly (test code = 627) hemolyzed POCT-GLUCOSE [id number] 09:09:00 Test Item Value Reference Range Interpretation Comments POC-GLUCOSE METER 81 mg/dL 70-110 TESTED AT [place] [address] (BEAKER) (test code = PAUL Tanner [facility] [address] 1538) [id number] 07:26:00 Test Item Value Reference Range Interpretation Comments MAGNESIUM (BEAKER) (test code = 1.4 mg/dL 1.6-2.6 L 627) COMPREHENSIVE METABOLIC [id number] 07:26:00 Test Item Value Reference Range Interpretation Comments TOTAL PROTEIN 6.9 gm/dL 6.0-8.3 (BEAKER) (test code = 770) ALBUMIN (BEAKER) 2.5 g/dL 3.5-5.0 L (test code = 1145) ALKALINE PHOSPHATASE 106 U/L 40-150 (BEAKER) (test code = 346) BILIRUBIN TOTAL 0.1 mg/dL 0.2-1.2 L (BEAKER) (test code = 377) SODIUM (BEAKER) (test 138 meq/L 136-145 code = 381) POTASSIUM (BEAKER) 4.0 meq/L 3.5-5.1 (test code = 379) CHLORIDE (BEAKER) 94 meq/L 98-107 L (test code = 382) CO2 (BEAKER) (test 37 meq/L 22-29 H code = 355) BLOOD UREA NITROGEN 17 mg/dL 7-21 (BEAKER) (test code = 354) CREATININE (BEAKER) 0.64 mg/dL 0.57-1.25 (test code = 358) GLUCOSE RANDOM 56 mg/dL 70-105 L (BEAKER) (test code = 652) CALCIUM (BEAKER) 8.9 mg/dL 8.4-10.2 (test code = 697) AST (SGOT) (BEAKER) 29 U/L 5-34 (test code = 353) ALT (SGPT) (BEAKER) 11 U/L 6-55 (test code = 347) EGFR (BEAKER) (test 136 ESTIMATE D GFR IS code = 1092) mL/min/1.73 sq NOT ACCURA TE m CREATININE CLEARANCE IN PREDICTING GLOMERULAR FILTRATION RATE . ESTIMATED GFR I S NOT APPLICABLE FOR DIALYSIS PATIEN TS. CBC W/PLT COUNT & AUTO [id number] 07:00:00 Test Item Value Reference Range Interpretation Comments WHITE BLOOD CELL COUNT (BEAKER) 11.9 K/ L 3.5-10.5 H (test code = 775) RED BLOOD CELL COUNT (BEAKER) 3.95 M/ L 3.93-5.22 (test code = 761) HEMOGLOBIN (BEAKER) (test code = 10.1 GM/DL 11.2-15.7 L 410) HEMATOCRIT (BEAKER) (test code = 34.9 % 34.1-44.9 411) MEAN CORPUSCULAR VOLUME (BEAKER) 88.4 fL 79.4-94.8 (test code = 753) MEAN CORPUSCULAR HEMOGLOBIN 25.6 pg 25.6-32.2 (BEAKER) (test code = 751) MEAN CORPUSCULAR HEMOGLOBIN CONC 28.9 GM/DL 32.2-35.5 L (BEAKER) (test code = 752) RED CELL DISTRIBUTION WIDTH 15.4 % 11.7-14.4 H (BEAKER) (test code = 412) PLATELET COUNT (BEAKER) (test 376 K/CU MM 150-450 code = 756) MEAN PLATELET VOLUME (BEAKER) 11.4 fL 9.4-12.3 (test code = 754) NUCLEATED RED BLOOD CELLS 0 /100 WBC 0-0 (BEAKER) (test code = 413) NEUTROPHILS RELATIVE PERCENT 59 % (BEAKER) (test code = 429) LYMPHOCYTES RELATIVE PERCENT 24 % (BEAKER) (test code = 430) MONOCYTES RELATIVE PERCENT 10 % (BEAKER) (test code = 431) EOSINOPHILS RELATIVE PERCENT 6 % (BEAKER) (test code = 432) BASOPHILS RELATIVE PERCENT 0 % (BEAKER) (test code = 437) NEUTROPHILS ABSOLUTE COUNT 6.98 K/ L 1.56-6.13 H (BEAKER) (test code = 670) LYMPHOCYTES ABSOLUTE COUNT 2.85 K/ L 1.18-3.74 (BEAKER) (test code = 414) MONOCYTES ABSOLUTE COUNT (BEAKER) 1.23 K/ L 0.24-0.36 H (test code = 415) EOSINOPHILS ABSOLUTE COUNT 0.68 K/ L 0.04-0.36 H (BEAKER) (test code = 416) BASOPHILS ABSOLUTE COUNT (BEAKER) 0.05 K/ L 0.01-0.08 (test code = 417) IMMATURE GRANULOCYTES-RELATIVE 1 % 0-1 PERCENT (BEAKER) (test code = 2801) POCT-GLUCOSE [id number] 22:03:00 Test Item Value Reference Range Interpretation Comments POC-GLUCOSE METER 228 mg/dL 70-110 H TESTED AT [place] [address] ([facility]) (test code = [facility] 1538) [address] POCT-GLUCOSE [id number] 18:34:00 Test Item Value Reference Range Interpretation Comments POC-GLUCOSE METER 77 mg/dL 70-110 TESTED AT [place] [id number] ([facility]) (test code = [facility] [address] 1538) BLOOD GAS, [id number] 14:42:00 Test Item Value Reference Range Interpretation Comments PH ARTERIAL (BEAKER) (test code = 7.43 7.35-7.45 383) PCO2 ARTERIAL (BEAKER) (test code 60 mmHg 35-45 H = 384) PO2 ARTERIAL (BEAKER) (test code 79 mmHg 80-90 L = 385) O2 SATURATION ARTERIAL (BEAKER) 95.8 % 96.0-97.0 L (test code = 386) HCO3 ARTERIAL (BEAKER) (test code 39 mmol/L 21-29 H = 388) BASE EXCESS ARTERIAL (BEAKER) 12.4 mmol/L -2.0-3.0 H (test code = 387) PATIENT TEMPERATURE (BEAKER) 36.6 C (test code = 1818) FIO2 (BEAKER) (test code = 1819) 32.0 % CF RESPIRATORY [id number] 12:12:00 Test Item Value Reference Range Interpretation Comments CULTURE (BEAKER) PSEUDOMONAS A 3+ Pseudomo viki (test code = 1095) AERUGINOSA aeruginos a (MUCOID-PHENOTYPE (Mucoid-ph enotype ) ) Amikacin (test code Susceptible 0-16 S = 1) , Resistant <0 or >16 Aztreonam (test Susceptible 0-8 , S code = 32) Resistant <0 or >8 Cefepime (test code Susceptible 0-8 , S = 51) Resistant <0 or >8 Ceftazidime (test Susceptible 0-8 , S code = 27) Resistant <0 or >8 Gentamicin (test Susceptible 0-4 , S code = 18) Resistant <0 or >4 Levofloxacin (test Susceptible 0-2 , R code = 22) Resistant <0 or >2 Meropenem (test Susceptible 0-2 , S code = 34) Resistant <0 or >2 Piperacillin (test Susceptible 0-16 S code = 24) , Resistant <0 or >16 Piperacillin + Susceptible 0-16 S Tazobactam (test , Resistant <0 or code = 29) >16 Tobramycin (test Susceptible 0-4 , S code = 25) Resistant <0 or >4 CULTURE (BEAKER) PSEUDOMONAS A 1+ Pseudomo viki (test code = 1095) AERUGINOSA aeruginos a Amikacin (test code Susceptible 0-16 S = 1) , Resistant <0 or >16 Aztreonam (test Susceptible 0-8 , S code = 32) Resistant <0 or >8 Cefepime (test code Susceptible 0-8 , S = 51) Resistant <0 or >8 Ceftazidime (test Susceptible 0-8 , S code = 27) Resistant <0 or >8 Ciprofloxacin (test Susceptible 0-1 , R code = 7) Resistant <0 or >1 Gentamicin (test Susceptible 0-4 , S code = 18) Resistant <0 or >4 Imipenem (test code Susceptible 0-2 , R = 19) Resistant <0 or >2 Levofloxacin (test Susceptible 0-2 , R code = 22) Resistant <0 or >2 Meropenem (test Susceptible 0-2 , R code = 34) Resistant <0 or >2 Piperacillin (test Susceptible 0-16 S code = 24) , Resistant <0 or >16 Piperacillin + Susceptible 0-16 S Tazobactam (test , Resistant <0 or code = 29) >16 Tobramycin (test Susceptible 0-4 , S code = 25) Resistant <0 or >4 3+ Normal respiratory derick presentPOCT-GLUCOSE [id number] 11:59:00 Test Item Value Reference Range Interpretation Comments POC-GLUCOSE METER 268 mg/dL 70-110 H TESTED AT [place] [address] ([facility]) (test code = PAUL Tanner [facility] 1538) [id number] POCT-GLUCOSE [id number] 08:26:00 Test Item Value Reference Range Interpretation Comments POC-GLUCOSE METER 362 mg/dL 70-110 H TESTED AT [place] [address] ([facility]) (test code = [facility] 1538) [id number] 08:26:00 Test Item Value Reference Range Interpretation Comments MAGNESIUM ([facility]) (test code = 1.5 mg/dL 1.6-2.6 L 627) COMPREHENSIVE METABOLIC [id number] 08:26:00 Test Item Value Reference Range Interpretation Comments TOTAL PROTEIN 7.0 gm/dL 6.0-8.3 ([facility]) (test code = 770) ALBUMIN ([facility]) 2.5 g/dL 3.5-5.0 L (test code = 1145) ALKALINE PHOSPHATASE 108 U/L 40-150 ([facility]) (test code = 346) BILIRUBIN TOTAL 0.1 mg/dL 0.2-1.2 L ([facility]) (test code = 377) SODIUM (BEAKER) (test 135 meq/L 136-145 L code = 381) POTASSIUM (BEAKER) 4.7 meq/L 3.5-5.1 (test code = 379) CHLORIDE (BEAKER) 92 meq/L 98-107 L (test code = 382) CO2 (BEAKER) (test 36 meq/L 22-29 H code = 355) BLOOD UREA NITROGEN 19 mg/dL 7-21 (BEAKER) (test code = 354) CREATININE (BEAKER) 0.78 mg/dL 0.57-1.25 (test code = 358) GLUCOSE RANDOM 284 mg/dL 70-105 H (BEAKER) (test code = 652) CALCIUM (BEAKER) 8.8 mg/dL 8.4-10.2 (test code = 697) AST (SGOT) (BEAKER) 15 U/L 5-34 (test code = 353) ALT (SGPT) (BEAKER) 9 U/L 6-55 (test code = 347) EGFR (BEAKER) (test 108 ESTIMATE D GFR IS code = 1092) mL/min/1.73 sq NOT ACCURA TE m CREATININE CLEARANCE IN PREDICTING GLOMERULAR FILTRATION RATE . ESTIMATED GFR I S NOT APPLICABLE FOR DIALYSIS PATIEN TS. CBC W/PLT COUNT & AUTO [id number] 07:13:00 Test Item Value Reference Range Interpretation Comments WHITE BLOOD CELL COUNT (BEAKER) 8.5 K/ L 3.5-10.5 (test code = 775) RED BLOOD CELL COUNT (BEAKER) 3.84 M/ L 3.93-5.22 L (test code = 761) HEMOGLOBIN (BEAKER) (test code = 10.1 GM/DL 11.2-15.7 L 410) HEMATOCRIT (BEAKER) (test code = 33.7 % 34.1-44.9 L 411) MEAN CORPUSCULAR VOLUME (BEAKER) 87.8 fL 79.4-94.8 (test code = 753) MEAN CORPUSCULAR HEMOGLOBIN 26.3 pg 25.6-32.2 (BEAKER) (test code = 751) MEAN CORPUSCULAR HEMOGLOBIN CONC 30.0 GM/DL 32.2-35.5 L (BEAKER) (test code = 752) RED CELL DISTRIBUTION WIDTH 15.6 % 11.7-14.4 H (BEAKER) (test code = 412) PLATELET COUNT (BEAKER) (test 380 K/CU MM 150-450 code = 756) MEAN PLATELET VOLUME (BEAKER) 11.9 fL 9.4-12.3 (test code = 754) NUCLEATED RED BLOOD CELLS 0 /100 WBC 0-0 (BEAKER) (test code = 413) NEUTROPHILS RELATIVE PERCENT 77 % (BEAKER) (test code = 429) LYMPHOCYTES RELATIVE PERCENT 13 % (BEAKER) (test code = 430) MONOCYTES RELATIVE PERCENT 9 % (BEAKER) (test code = 431) EOSINOPHILS RELATIVE PERCENT 1 % (BEAKER) (test code = 432) BASOPHILS RELATIVE PERCENT 0 % (BEAKER) (test code = 437) NEUTROPHILS ABSOLUTE COUNT 6.54 K/ L 1.56-6.13 H (BEAKER) (test code = 670) LYMPHOCYTES ABSOLUTE COUNT 1.07 K/ L 1.18-3.74 L (BEAKER) (test code = 414) MONOCYTES ABSOLUTE COUNT (BEAKER) 0.78 K/ L 0.24-0.36 H (test code = 415) EOSINOPHILS ABSOLUTE COUNT 0.04 K/ L 0.04-0.36 (BEAKER) (test code = 416) BASOPHILS ABSOLUTE COUNT (BEAKER) 0.01 K/ L 0.01-0.08 (test code = 417) IMMATURE GRANULOCYTES-RELATIVE 1 % 0-1 PERCENT (BEAKER) (test code = 2801) POCT-GLUCOSE [id number] 21:49:00 Test Item Value Reference Range Interpretation Comments POC-GLUCOSE METER 225 mg/dL 70-110 H TESTED AT [place] [address] ([facility]) (test code = PAUL Tanner [facility] 1538) [id number] POCT-GLUCOSE [id number] 16:47:00 Test Item Value Reference Range Interpretation Comments POC-GLUCOSE METER 367 mg/dL 70-110 H TESTED AT [place] [address] ([facility]) (test code = PAUL Tanner [facility] 1538) [id number] POCT-GLUCOSE [id number] 13:10:00 Test Item Value Reference Range Interpretation Comments POC-GLUCOSE METER 446 mg/dL 70-110 HH Procedure Error/TESTED ([facility]) (test code AT [place] [address] [facility] = 1538) [facility] 7[address] 0 POCT-GLUCOSE [id number] 08:29:00 Test Item Value Reference Range Interpretation Comments POC-GLUCOSE METER 221 mg/dL 70-110 H TESTED AT [place] [address] (BEAKER) (test code = [place] 1538) [address] [id number] 05:57:00 Test Item Value Reference Range Interpretation Comments MAGNESIUM (BEAKER) (test code = 1.0 mg/dL 1.6-2.6 LL 627) COMPREHENSIVE METABOLIC [id number] 05:11:00 Test Item Value Reference Range Interpretation Comments TOTAL PROTEIN 7.3 gm/dL 6.0-8.3 (BEAKER) (test code = 770) ALBUMIN (BEAKER) 2.6 g/dL 3.5-5.0 L (test code = 1145) ALKALINE PHOSPHATASE 112 U/L 40-150 (BEAKER) (test code = 346) BILIRUBIN TOTAL 0.1 mg/dL 0.2-1.2 L (BEAKER) (test code = 377) SODIUM (BEAKER) (test 136 meq/L 136-145 code = 381) POTASSIUM (BEAKER) 4.2 meq/L 3.5-5.1 (test code = 379) CHLORIDE (BEAKER) 91 meq/L 98-107 L (test code = 382) CO2 (BEAKER) (test 34 meq/L 22-29 H code = 355) BLOOD UREA NITROGEN 10 mg/dL 7-21 (BEAKER) (test code = 354) CREATININE (BEAKER) 0.81 mg/dL 0.57-1.25 (test code = 358) GLUCOSE RANDOM 365 mg/dL 70-105 H (BEAKER) (test code = 652) CALCIUM (BEAKER) 8.9 mg/dL 8.4-10.2 (test code = 697) AST (SGOT) (BEAKER) 13 U/L 5-34 (test code = 353) ALT (SGPT) (BEAKER) 9 U/L 6-55 (test code = 347) EGFR (BEAKER) (test 104 ESTIMATE D GFR IS code = 1092) mL/min/1.73 sq NOT ACCURA TE m CREATININE CLEARANCE IN PREDICTING GLOMERULAR FILTRATION RATE . ESTIMATED GFR I S NOT APPLICABLE FOR DIALYSIS PATIEN TS. LACTIC ACID, [id number] 04:59:00 Test Item Value Reference Range Interpretation Comments LACTATE BLOOD VENOUS (2) (BEAKER) 1.9 mmol/L 0.5-2.2 (test code = 2872) CBC W/PLT COUNT & AUTO [id number] 04:47:00 Test Item Value Reference Range Interpretation Comments WHITE BLOOD CELL COUNT (BEAKER) 8.2 K/ L 3.5-10.5 (test code = 775) RED BLOOD CELL COUNT (BEAKER) 3.98 M/ L 3.93-5.22 (test code = 761) HEMOGLOBIN (BEAKER) (test code = 10.3 GM/DL 11.2-15.7 L 410) HEMATOCRIT (BEAKER) (test code = 34.5 % 34.1-44.9 411) MEAN CORPUSCULAR VOLUME (BEAKER) 86.7 fL 79.4-94.8 (test code = 753) MEAN CORPUSCULAR HEMOGLOBIN 25.9 pg 25.6-32.2 (BEAKER) (test code = 751) MEAN CORPUSCULAR HEMOGLOBIN CONC 29.9 GM/DL 32.2-35.5 L (BEAKER) (test code = 752) RED CELL DISTRIBUTION WIDTH 15.3 % 11.7-14.4 H (BEAKER) (test code = 412) PLATELET COUNT (BEAKER) (test 348 K/CU MM 150-450 code = 756) MEAN PLATELET VOLUME (BEAKER) 11.2 fL 9.4-12.3 (test code = 754) NUCLEATED RED BLOOD CELLS 0 /100 WBC 0-0 (BEAKER) (test code = 413) NEUTROPHILS RELATIVE PERCENT 61 % (BEAKER) (test code = 429) LYMPHOCYTES RELATIVE PERCENT 23 % (BEAKER) (test code = 430) MONOCYTES RELATIVE PERCENT 11 % (BEAKER) (test code = 431) EOSINOPHILS RELATIVE PERCENT 5 % (BEAKER) (test code = 432) BASOPHILS RELATIVE PERCENT 0 % (BEAKER) (test code = 437) NEUTROPHILS ABSOLUTE COUNT 4.99 K/ L 1.56-6.13 (BEAKER) (test code = 670) LYMPHOCYTES ABSOLUTE COUNT 1.89 K/ L 1.18-3.74 (BEAKER) (test code = 414) MONOCYTES ABSOLUTE COUNT (BEAKER) 0.86 K/ L 0.24-0.36 H (test code = 415) EOSINOPHILS ABSOLUTE COUNT 0.41 K/ L 0.04-0.36 H (BEAKER) (test code = 416) BASOPHILS ABSOLUTE COUNT (BEAKER) 0.03 K/ L 0.01-0.08 (test code = 417) IMMATURE GRANULOCYTES-RELATIVE 0 % 0-1 PERCENT (BEAKER) (test code = 2801) POCT-GLUCOSE [id number] 22:50:00 Test Item Value Reference Range Interpretation Comments POC-GLUCOSE METER 338 mg/dL 70-[address] [facility] 6720 (BEAKER) (test code = [facility] [place] 1538) [address] POCT-GLUCOSE [id number] 18:35:00 Test Item Value Reference Range Interpretation Comments POC-GLUCOSE METER 177 mg/dL 70-[address] [facility] 6720 (BEAKER) (test code = [facility] [place] 1538) [address] BASIC METABOLIC [id number] 15:04:00 Test Item Value Reference Range Interpretation Comments SODIUM (BEAKER) 138 meq/L 136-145 (test code = 381) POTASSIUM (BEAKER) 3.9 meq/L 3.5-5.1 (test code = 379) CHLORIDE (BEAKER) 90 meq/L 98-107 L (test code = 382) CO2 (BEAKER) (test 38 meq/L 22-29 H code = 355) BLOOD UREA NITROGEN 10 mg/dL 7-21 (BEAKER) (test code = 354) CREATININE (BEAKER) 0.57 mg/dL 0.57-1.25 (test code = 358) GLUCOSE RANDOM 211 mg/dL 70-105 H (BEAKER) (test code = 652) CALCIUM (BEAKER) 8.5 mg/dL 8.4-10.2 (test code = 697) EGFR (BEAKER) (test 155 mL/min/1.73 ESTIM ATED GFR IS code = 1092) sq m NOT ACCURATE CREATININE CLEARANCE IN PREDICTING GLOMERULAR FILTRATION RATE . ESTIMATED GFR I S NOT APPLICABLE FOR DIALYSIS PATIEN TS. CBC W/PLT COUNT & AUTO [id number] 15:00:00 Test Item Value Reference Range Interpretation Comments WHITE BLOOD CELL COUNT (BEAKER) 10.8 K/ L 3.5-10.5 H (test code = 775) RED BLOOD CELL COUNT (BEAKER) 3.93 M/ L 3.93-5.22 (test code = 761) HEMOGLOBIN (BEAKER) (test code = 10.4 GM/DL 11.2-15.7 L 410) HEMATOCRIT (BEAKER) (test code = 34.2 % 34.1-44.9 411) MEAN CORPUSCULAR VOLUME (BEAKER) 87.0 fL 79.4-94.8 (test code = 753) MEAN CORPUSCULAR HEMOGLOBIN 26.5 pg 25.6-32.2 (BEAKER) (test code = 751) MEAN CORPUSCULAR HEMOGLOBIN CONC 30.4 GM/DL 32.2-35.5 L (BEAKER) (test code = 752) RED CELL DISTRIBUTION WIDTH 15.0 % 11.7-14.4 H (BEAKER) (test code = 412) PLATELET COUNT (BEAKER) (test 385 K/CU MM 150-450 code = 756) MEAN PLATELET VOLUME (BEAKER) 11.0 fL 9.4-12.3 (test code = 754) NUCLEATED RED BLOOD CELLS 0 /100 WBC 0-0 (BEAKER) (test code = 413) NEUTROPHILS RELATIVE PERCENT 86 % (BEAKER) (test code = 429) LYMPHOCYTES RELATIVE PERCENT 7 % (BEAKER) (test code = 430) MONOCYTES RELATIVE PERCENT 3 % (BEAKER) (test code = 431) EOSINOPHILS RELATIVE PERCENT 3 % (BEAKER) (test code = 432) BASOPHILS RELATIVE PERCENT 0 % (BEAKER) (test code = 437) NEUTROPHILS ABSOLUTE COUNT 9.28 K/ L 1.56-6.13 H (BEAKER) (test code = 670) LYMPHOCYTES ABSOLUTE COUNT 0.74 K/ L 1.18-3.74 L (BEAKER) (test code = 414) MONOCYTES ABSOLUTE COUNT (BEAKER) 0.35 K/ L 0.24-0.36 (test code = 415) EOSINOPHILS ABSOLUTE COUNT 0.33 K/ L 0.04-0.36 (BEAKER) (test code = 416) BASOPHILS ABSOLUTE COUNT (BEAKER) 0.03 K/ L 0.01-0.08 (test code = 417) IMMATURE GRANULOCYTES-RELATIVE 0 % 0-1 PERCENT (BEAKER) (test code = 2801) POCT-GLUCOSE [id number] 12:20:00 Test Item Value Reference Range Interpretation Comments POC-GLUCOSE METER 275 mg/dL 70-[address] [facility] 6720 ([facility]) (test code = [place] 1538) [address] BLOOD [id number] 02:00:00 Test Item Value Reference Range Interpretation Comments CULTURE ([facility]) (test No growth in 5 days code = 1095) POCT-GLUCOSE [id number] 22:34:00 Test Item Value Reference Range Interpretation Comments POC-GLUCOSE METER 339 mg/dL 70-110 H TESTED AT [place] [address] ([facility]) (test code = PAUL Tanner [facility] 1538) [id number] BLOOD [id number] 20:01:00 Test Item Value Reference Range Interpretation Comments CULTURE ([facility]) (test No growth in 5 days code = 1095) POCT-GLUCOSE [id number] 19:07:00 Test Item Value Reference Range Interpretation Comments POC-GLUCOSE METER 296 mg/dL 70-110 H TESTED AT [place] [address] ([facility]) (test code = PAUL Tanner [facility] 1538) [id number] POCT-GLUCOSE [id number] 12:53:00 Test Item Value Reference Range Interpretation Comments POC-GLUCOSE METER 104 mg/dL 70-110 TESTED AT [place] [address] ([facility]) (test code = [facility] Ciro [facility] 1538) [address] POCT-GLUCOSE [id number] 09:10:00 Test Item Value Reference Range Interpretation Comments POC-GLUCOSE METER 348 mg/dL 70-110 H Notified Ciro Polanco MD/TESTED ([facility]) (test code = AT [address] 1538) [facility] 7703 0 POCT-GLUCOSE [id number] 21:35:00 Test Item Value Reference Range Interpretation Comments POC-GLUCOSE METER 209 mg/dL 70-110 H TESTED AT [place] [address] ([facility]) (test code = [facility] Ciro [facility] 1538) [address] BASIC METABOLIC [id number] 18:44:00 Test Item Value Reference Range Interpretation Comments SODIUM (BEAKER) 140 meq/L 136-145 (test code = 381) POTASSIUM (BEAKER) 4.1 meq/L 3.5-5.1 (test code = 379) CHLORIDE (BEAKER) 92 meq/L 98-107 L (test code = 382) CO2 (BEAKER) (test 41 meq/L 22-29 HH code = 355) BLOOD UREA NITROGEN 10 mg/dL 7-21 (BEAKER) (test code = 354) CREATININE (BEAKER) 0.87 mg/dL 0.57-1.25 (test code = 358) GLUCOSE RANDOM 144 mg/dL 70-105 H (BEAKER) (test code = 652) CALCIUM (BEAKER) 9.4 mg/dL 8.4-10.2 (test code = 697) EGFR (BEAKER) (test 95 mL/min/1.73 ESTIMA MAGDALENO GFR IS code = 1092) sq m NOT ACCURATE CREATININE CLEARANCE IN PREDICTING GLOMERULAR FILTRATION RATE . ESTIMATED GFR I S NOT APPLICABLE FOR DIALYSIS PATIEN TS. CBC W/PLT COUNT & AUTO [id number] 18:10:00 Test Item Value Reference Range Interpretation Comments WHITE BLOOD CELL COUNT (BEAKER) 14.4 K/ L 3.5-10.5 H (test code = 775) RED BLOOD CELL COUNT (BEAKER) 4.56 M/ L 3.93-5.22 (test code = 761) HEMOGLOBIN (BEAKER) (test code = 11.8 GM/DL 11.2-15.7 410) HEMATOCRIT (BEAKER) (test code = 39.7 % 34.1-44.9 411) MEAN CORPUSCULAR VOLUME (BEAKER) 87.1 fL 79.4-94.8 (test code = 753) MEAN CORPUSCULAR HEMOGLOBIN 25.9 pg 25.6-32.2 (BEAKER) (test code = 751) MEAN CORPUSCULAR HEMOGLOBIN CONC 29.7 GM/DL 32.2-35.5 L (BEAKER) (test code = 752) RED CELL DISTRIBUTION WIDTH 15.1 % 11.7-14.4 H (BEAKER) (test code = 412) PLATELET COUNT (BEAKER) (test 393 K/CU MM 150-450 code = 756) MEAN PLATELET VOLUME (BEAKER) 11.8 fL 9.4-12.3 (test code = 754) NUCLEATED RED BLOOD CELLS 0 /100 WBC 0-0 (BEAKER) (test code = 413) NEUTROPHILS RELATIVE PERCENT 89 % (BEAKER) (test code = 429) LYMPHOCYTES RELATIVE PERCENT 5 % (BEAKER) (test code = 430) MONOCYTES RELATIVE PERCENT 4 % (BEAKER) (test code = 431) EOSINOPHILS RELATIVE PERCENT 2 % (BEAKER) (test code = 432) BASOPHILS RELATIVE PERCENT 0 % (BEAKER) (test code = 437) NEUTROPHILS ABSOLUTE COUNT 12.80 K/ L 1.56-6.13 H (BEAKER) (test code = 670) LYMPHOCYTES ABSOLUTE COUNT 0.68 K/ L 1.18-3.74 L (BEAKER) (test code = 414) MONOCYTES ABSOLUTE COUNT (BEAKER) 0.57 K/ L 0.24-0.36 H (test code = 415) EOSINOPHILS ABSOLUTE COUNT 0.26 K/ L 0.04-0.36 (BEAKER) (test code = 416) BASOPHILS ABSOLUTE COUNT (BEAKER) 0.04 K/ L 0.01-0.08 (test code = 417) IMMATURE GRANULOCYTES-RELATIVE 0 % 0-1 PERCENT (BEAKER) (test code = 2801) POCT-GLUCOSE [id number] 17:13:00 Test Item Value Reference Range Interpretation Comments POC-GLUCOSE METER 132 mg/dL 70-110 H TESTED AT [place] [address] ([facility]) [facility] 1538) [id number] POCT-GLUCOSE [id number] 12:52:00 Test Item Value Reference Range Interpretation Comments POC-GLUCOSE METER 145 mg/dL 70-110 H TESTED AT [place] [address] ([facility]) (test code = [facility] Quantine [facility] 1538) [id number] SPIN/CONCENTRATION [id number] 12:12:00 Test Item Value Reference Range Interpretation Comments CONCENTRATION CHARGED ([facility]) (test Done code = 2657) POCT-GLUCOSE [id number] 09:13:00 Test Item Value Reference Range Interpretation Comments POC-GLUCOSE METER 267 mg/dL 70-110 H TESTED AT [place] [address] ([facility]) (test code = [facility] [employer] [facility] 1538) [address] POCT-GLUCOSE [id number] 21:53:00 Test Item Value Reference Range Interpretation Comments POC-GLUCOSE METER 233 mg/dL 70-[address] [facility] 6720 ([facility]) ([facility] [place] 1538) [address] POCT-GLUCOSE [id number] 17:55:00 Test Item Value Reference Range Interpretation Comments POC-GLUCOSE METER 202 mg/dL 70-110 H TESTED AT [place] [address] ([facility]) (test code = [facility] [place] 1538) [address] POCT-GLUCOSE [id number] 13:25:00 Test Item Value Reference Range Interpretation Comments POC-GLUCOSE METER 184 mg/dL 70-[address] [facility] 6720 ([facility]) (test code = PAUL Ciro [facility] 1538) [id number] POCT-GLUCOSE [id number] 11:30:00 Test Item Value Reference Range Interpretation Comments POC-GLUCOSE METER 50 mg/dL 70-110 L Notified R N MD/TESTED AT ([facility]) (test code = [id number] [id number]) [facility] 7703 0 POCT-GLUCOSE [id number] 08:52:00 Test Item Value Reference Range Interpretation Comments POC-GLUCOSE METER 52 mg/dL 70-110 L Notified R N MD/TESTED AT ([facility]) (test code = [place] 222468) [facility] 7703 0 BASIC METABOLIC [id number] 04:53:00 Test Item Value Reference Range Interpretation Comments SODIUM (BEAKER) 138 meq/L 136-145 (test code = 381) POTASSIUM (BEAKER) 4.0 meq/L 3.5-5.1 Specimen slightly (test code = 379) hemolyzed CHLORIDE (BEAKER) 100 meq/L 98-107 (test code = 382) CO2 (BEAKER) (test 31 meq/L 22-29 H code = 355) BLOOD UREA NITROGEN 8 mg/dL 7-21 (BEAKER) (test code = 354) CREATININE (BEAKER) 0.72 mg/dL 0.57-1.25 Specimen slightly (test code = 358) hemolyzed GLUCOSE RANDOM 182 mg/dL 70-105 H (BEAKER) (test code = 652) CALCIUM (BEAKER) 8.7 mg/dL 8.4-10.2 (test code = 697) EGFR (BEAKER) (test 119 mL/min/1.73 ESTIM ATED GFR IS code = 1092) sq m NOT ACCURATE CREATININE CLEARANCE IN PREDICTING GLOMERULAR FILTRATION RATE . ESTIMATED GFR I S NOT APPLICABLE FOR DIALYSIS PATIEN TS. LACTIC ACID, [id number] 04:32:00 Test Item Value Reference Range Interpretation Comments LACTATE BLOOD VENOUS (2) (BEAKER) 1.0 mmol/L 0.5-2.2 (test code = 2872) RAD, ABDOMEN/KUB, 1 VIEW [id number] 23:28:00Reason for exam:->Abdominal painShould this be performed [...] free air. Signed: Ariana Youngblood MDReport Verified Date/Time: 01/05/2019 23:28:04 Reading Location: [address] Consult Reading Room El ectronically signed by: ARIANA YOUNGBLOOD M.D. on 01/05/2019 11:28 PMPOCT-GLUCOSE [id number] 23:26:00 Test Item Value Reference Range Interpretation Comments POC-GLUCOSE METER 251 mg/dL 70-110 H TESTED AT [place] [address] ([facility]) (test code = [facility] 1538) [address] POCT-GLUCOSE [id number] 19:25:00 Test Item Value Reference Range Interpretation Comments POC-GLUCOSE METER 296 mg/dL 70-110 H TESTED AT [place] [address] ([facility]) (test code = [facility] 1538) [address] BASIC METABOLIC [id number] 13:27:00 Test Item Value Reference Range Interpretation Comments SODIUM (BEAKER) 137 meq/L 136-145 (test code = 381) POTASSIUM (BEAKER) 5.0 meq/L 3.5-5.1 (test code = 379) CHLORIDE (BEAKER) 101 meq/L 98-107 (test code = 382) CO2 (BEAKER) (test 25 meq/L 22-29 code = 355) BLOOD UREA NITROGEN 10 mg/dL 7-21 (BEAKER) (test code = 354) CREATININE (BEAKER) 0.95 mg/dL 0.57-1.25 (test code = 358) GLUCOSE RANDOM 413 mg/dL 70-105 HH (BEAKER) (test code = 652) CALCIUM (BEAKER) 8.2 mg/dL 8.4-10.2 L (test code = 697) EGFR (BEAKER) (test 86 mL/min/1.73 ESTIMA MAGDALENO GFR IS code = 1092) sq m NOT ACCURATE CREATININE CLEARANCE IN PREDICTING GLOMERULAR FILTRATION RATE . ESTIMATED GFR I S NOT APPLICABLE FOR DIALYSIS PATIEN TS. [id number] 13:02:00 Test Item Value Reference Range Interpretation Comments LIPASE (SIMI) (test code = 749) 4 U/L 8-78 L POCT-GLUCOSE [id number] 12:55:00 Test Item Value Reference Range Interpretation Comments POC-GLUCOSE METER 340 mg/dL 70-110 H Notified R N MD/TESTED (SIMI) (test code = AT [place] [address]) [facility] 7[address] 0 HEMOGLOBIN [id number] 09:59:00 Test Item Value Reference Range Interpretation Comments HEMOGLOBIN A1C (SIMI) (test code = 10.5 % 4.3-6.1 H 368) POCT-GLUCOSE [id number] 08:28:00 Test Item Value Reference Range Interpretation Comments POC-GLUCOSE METER 336 mg/dL 70-110 H Notified R N MD/TESTED (SIMI) (test code = AT [place] [address]) [facility] [address] 0 [id number] 06:56:00 Test Item Value Reference Range Interpretation Comments BLOOD UREA NITROGEN (SIMI) (test 10 mg/dL 7-21 code = 354) [id number] 06:56:00 Test Item Value Reference Range Interpretation Comments CREATININE (SIMI) 0.96 mg/dL 0.57-1.25 (test code = 358) EGFR (SIMI) (test 85 mL/min/1.73 ESTIMA MAGDALENO GFR IS code = 1092) sq m NOT ACCURATE CREATININE CLEARANCE IN PREDICTING GLOMERULAR FILTRATION RATE . ESTIMATED GFR I S NOT APPLICABLE FOR DIALYSIS PATIEN TS. POCT-GLUCOSE [id number] 06:30:00 Test Item Value Reference Range Interpretation Comments POC-GLUCOSE METER 357 mg/dL 70-[address] [facility] [address] ([facility]) (test code = [place] [address]) [id number] LACTIC ACID, [id number] 05:51:00 Test Item Value Reference Range Interpretation Comments LACTATE BLOOD VENOUS (2) (SIMI) 2.1 mmol/L 0.5-2.2 (test code = 2872) SCREEN, [id number] 04:22:00 Test Item Value Reference Range Interpretation Comments TEST URINE (BEAKER) (test Negative code = 583) POCT-GLUCOSE [id number] 03:11:00 Test Item Value Reference Range Interpretation Comments POC-GLUCOSE METER 403 mg/dL 70-110 HH TESTED AT [place] [address] (BEAKER) ([facility] 1538) [id number] POCT-GLUCOSE [id number] 00:43:00 Test Item Value Reference Range Interpretation Comments POC-GLUCOSE METER 430 mg/dL 70-110 HH TESTED AT [place] [address] (BEAKER) (test code = [facility] Ciro [facility] 1538) [id number] BASIC METABOLIC [id number] 22:43:00 Test Item Value Reference Range Interpretation Comments SODIUM (BEAKER) 135 meq/L 136-145 L (test code = 381) POTASSIUM (BEAKER) 4.9 meq/L 3.5-5.1 (test code = 379) CHLORIDE (BEAKER) 98 meq/L 98-107 (test code = 382) CO2 (BEAKER) (test 30 meq/L 22-29 H code = 355) BLOOD UREA NITROGEN 10 mg/dL 7-21 (BEAKER) (test code = 354) CREATININE (BEAKER) 1.21 mg/dL 0.57-1.25 (test code = 358) GLUCOSE RANDOM 581 mg/dL 70-105 HH (BEAKER) (test code = 652) CALCIUM (BEAKER) 8.5 mg/dL 8.4-10.2 (test code = 697) EGFR (BEAKER) (test 65 mL/min/1.73 ESTIMA MAGDALENO GFR IS code = 1092) sq m NOT ACCURATE CREATININE CLEARANCE IN PREDICTING GLOMERULAR FILTRATION RATE . ESTIMATED GFR I S NOT APPLICABLE FOR DIALYSIS PATIEN TS. POCT-GLUCOSE [id number] 22:42:00 Test Item Value Reference Range Interpretation Comments POC-GLUCOSE METER > mg/dL 70-110 HH OUTSIDE ME ASURING (BEAKER) (test code RANGENot ified JORDON STAPLETON/TESTED = 1538) [facility] [place] [address] [facility] 7703 0 GLUCOSE-STAT [id number] 20:33:00 Test Item Value Reference Range Interpretation Comments GLUCOSE RANDOM (BEAKER) (test code 580 mg/dL 70-110 HH = 652) [id number] 19:57:00 Test Item Value Reference Range Interpretation Comments MAGNESIUM (BEAKER) (test code = 1.6 mg/dL 1.6-2.6 627) [id number] 19:57:00 Test Item Value Reference Range Interpretation Comments BLOOD UREA NITROGEN (BEAKER) (test 10 mg/dL 7-21 code = 354) [id number] 19:57:00 Test Item Value Reference Range Interpretation Comments CREATININE (BEAKER) 1.25 mg/dL 0.57-1.25 (test code = 358) EGFR (BEAKER) (test 63 mL/min/1.73 ESTIMA MAGDALENO GFR IS code = 1092) sq m NOT ACCURATE CREATININE CLEARANCE IN PREDICTING GLOMERULAR FILTRATION RATE . ESTIMATED GFR I S NOT APPLICABLE FOR DIALYSIS PATIEN TS. POCT-GLUCOSE [id number] 15:07:00 Test Item Value Reference Range Interpretation Comments POC-GLUCOSE METER 466 mg/dL 70-[address] [facility] 6720 ([facility]) (test code = PAUL Tanner [facility] 1538) [id number] RESPIRATORY PANEL [id number] 14:21:00 Test Item Value Reference Range Interpretation Comments HUMAN METAPNEUMOVIRUS Not detected Not detected, (BEAKER) (test code = 2683) Equivocal RHINOVIRUS (BEAKER) (test Not detected Not detected, code = 2684) Equivocal INFLUENZA A (BEAKER) (test Not detected Not detected, code = 2685) Equivocal INFLUENZA A (NO SUBTYPE) Not detected, (test code = 3606) Equivocal INFLUENZA A SUBTYPE H1 Not detected, (BEAKER) (test code = 2686) Equivocal INFLUENZA A SUBTYPE H3 Not detected, (BEAKER) (test code = 2687) Equivocal INFLUENZA A SUBTYPE H1-2009 Not detected, (BEAKER) (test code = 3198) Equivocal INFLUENZA B (BEAKER) (test Not detected Not detected, code = 2688) Equivocal RESPIRATORY SYNCYTIAL VIRUS Not detected Not detected, (BEAKER) (test code = 3199) Equivocal PARAINFLUENZA VIRUS 1 Not detected Not detected, (BEAKER) (test code = 2691) Equivocal PARAINFLUENZA VIRUS 2 Not detected Not detected, (BEAKER) (test code = 2692) Equivocal PARAINFLUENZA VIRUS 3 Not detected Not detected, (BEAKER) (test code = 2693) Equivocal PARAINFLUENZA VIRUS 4 Not detected Not detected, (BEAKER) (test code = 3200) Equivocal ADENOVIRUS (BEAKER) (test Not detected Not detected, code = 2694) Equivocal CORONAVIRUS 229E (BEAKER) Not detected Not detected, (test code = 3201) Equivocal CORONAVIRUS HKU1 (BEAKER) Not detected Not detected, (test code = 3202) Equivocal CORONAVIRUS NL63 (BEAKER) Not detected Not detected, (test code = 3203) Equivocal CORONAVIRUS OC43 (BEAKER) Not detected Not detected, (test code = 3204) Equivocal BORDETELLA PERTUSSIS Not detected Not detected, (BEAKER) (test code = 3205) Equivocal CHLAMYDOPHILA PNEUMONIAE Not detected Not detected, (BEAKER) (test code = 3206) Equivocal MYCOPLASMA PNEUMONIAE Not detected Not detected, (BEAKER) (test code = 3207) Equivocal Other viruses and bacteria not targeted by this PCR panel cannot be excluded; therefore clinical correlation and follow up of serology, culture results, and other molecular studies is required. The results are not intended to be used as the sole means for clinical diagnosis or patient management decisions. This sample was tested at the [facility] Molecular Diagnostics Laboratory using the Spinal SimplicityArray Respiratory Panel. It is FDA cleared and has been verified and approved by the [facility] Molecular Diagnostics Laboratory for clinical use on nasal swab specimens. It is not FDA-cleared for use on bronchial wash/lavage samples. However, for this sample type, validation was performed and test characteristics were determined and approved, by [facility] for clinical use under the Clinical Laboratory Improvement Amendments (CLIA) of 1988 requirements. Therefore, FDA clearance isnot required. This laboratory is CLIA- certified and [employer] [place] (CAP)-accredited to perform high complexity testing.POCT-GLUCOSE [id number] 08:29:00 Test Item Value Reference Range Interpretation Comments POC-GLUCOSE METER 368 mg/dL 70-110 H Notified Ciro Polanco MD/TESTED (SIMI) (test code = AT [facility] [address]38) [facility] 7703 0 POCT-GLUCOSE [id number] 00:18:00 Test Item Value Reference Range Interpretation Comments POC-GLUCOSE METER 218 mg/dL 70-110 H TESTED AT [facility] 6720 (BEAKER) (test code = PAUL [place] 1538) [address] RAPID INFLUENZA A&B [id number] 19:46:00 Test Item Value Reference Range Interpretation Comments RAPID INFLUENZA A AG (BEAKER) Negative Negative, Inconclusive (test code = 1622) RAPID INFLUENZA B AG (BEAKER) Negative Negative, Inconclusive (test code = 1623) RAD, CHEST, 1 VIEW, NON [id number] 19:27:00Reason for exam:->CHEST PAINShould this be performed at the bedside?->YesFINAL REPORT INDICATION: CHEST PAIN COMPARISON:November 08, 2018 TECHNIQUE: Chest radiograph, single view, portable technique. FINDINGS / IMPRESSION: Upper lung bronchiectasis andfaint opacities suggesting cystic fibrosis. No discrete new parenchymal opacity that would indicate new infection. Right chest port terminates at the cavoatrial junction. Signed: Debbie Enriquez MDReport Verified Date/Time: 01/03/2019 19:27:38 Reading Location: [address] Consult Reading Room POCT-LACTIC ACID, [id number] 19:05:00 Test Item Value Reference Range Interpretation Comments POC-LACTIC ACID, 0.9 mmol/L 0.9-1.7 TESTED AT [facility] [address] (BEAKER) (test [place] code = 2805) [address] [id number] 18:00:00 Test Item Value Reference Range Interpretation Comments MAGNESIUM (BEAKER) (test code = 1.0 mg/dL 1.6-2.6 LL 627) BASIC METABOLIC [id number] 17:50:00 Test Item Value Reference Range Interpretation Comments SODIUM (BEAKER) 140 meq/L 136-145 (test code = 381) POTASSIUM (BEAKER) 3.5 meq/L 3.5-5.1 (test code = 379) CHLORIDE (BEAKER) 99 meq/L 98-107 (test code = 382) CO2 (BEAKER) (test 33 meq/L 22-29 H code = 355) BLOOD UREA NITROGEN 4 mg/dL 7-21 L (BEAKER) (test code = 354) CREATININE (BEAKER) 0.67 mg/dL 0.57-1.25 (test code = 358) GLUCOSE RANDOM 150 mg/dL 70-105 H (BEAKER) (test code = 652) CALCIUM (BEAKER) 8.7 mg/dL 8.4-10.2 (test code = 697) EGFR (BEAKER) (test 129 mL/min/1.73 ESTIM ATED GFR IS code = 1092) sq m NOT ACCURATE CREATININE CLEARANCE IN PREDICTING GLOMERULAR FILTRATION RATE . ESTIMATED GFR I S NOT APPLICABLE FOR DIALYSIS PATIEN TS. HEPATIC FUNCTION [id number] 17:50:00 Test Item Value Reference Range Interpretation Comments TOTAL PROTEIN (BEAKER) (test code = 7.4 gm/dL 6.0-8.3 770) ALBUMIN (BEAKER) (test code = 1145) 2.5 g/dL 3.5-5.0 L BILIRUBIN TOTAL (BEAKER) (test code 0.1 mg/dL 0.2-1.2 L = 377) BILIRUBIN DIRECT (BEAKER) (test 0.1 mg/dL 0.1-0.5 code = 706) ALKALINE PHOSPHATASE (BEAKER) (test 126 U/L 40-150 code = 346) AST (SGOT) (BEAKER) (test code = 14 U/L 5-34 353) ALT (SGPT) (BEAKER) (test code = 6 U/L 6-55 347) CBC W/PLT COUNT & AUTO [id number] 17:39:00 Test Item Value Reference Range Interpretation Comments WHITE BLOOD CELL COUNT (BEAKER) 12.5 K/ L 3.5-10.5 H (test code = 775) RED BLOOD CELL COUNT (BEAKER) 4.04 M/ L 3.93-5.22 (test code = 761) HEMOGLOBIN (BEAKER) (test code = 10.7 GM/DL 11.2-15.7 L 410) HEMATOCRIT (BEAKER) (test code = 35.3 % 34.1-44.9 411) MEAN CORPUSCULAR VOLUME (BEAKER) 87.4 fL 79.4-94.8 (test code = 753) MEAN CORPUSCULAR HEMOGLOBIN 26.5 pg 25.6-32.2 (BEAKER) (test code = 751) MEAN CORPUSCULAR HEMOGLOBIN CONC 30.3 GM/DL 32.2-35.5 L (BEAKER) (test code = 752) RED CELL DISTRIBUTION WIDTH 15.3 % 11.7-14.4 H (BEAKER) (test code = 412) PLATELET COUNT (BEAKER) (test 434 K/CU MM 150-450 code = 756) MEAN PLATELET VOLUME (BEAKER) 11.7 fL 9.4-12.3 (test code = 754) NUCLEATED RED BLOOD CELLS 0 /100 WBC 0-0 (BEAKER) (test code = 413) NEUTROPHILS RELATIVE PERCENT 78 % (BEAKER) (test code = 429) LYMPHOCYTES RELATIVE PERCENT 13 % (BEAKER) (test code = 430) MONOCYTES RELATIVE PERCENT 5 % (BEAKER) (test code = 431) EOSINOPHILS RELATIVE PERCENT 3 % (BEAKER) (test code = 432) BASOPHILS RELATIVE PERCENT 0 % (BEAKER) (test code = 437) NEUTROPHILS ABSOLUTE COUNT 9.79 K/ L 1.56-6.13 H (BEAKER) (test code = 670) LYMPHOCYTES ABSOLUTE COUNT 1.67 K/ L 1.18-3.74 (BEAKER) (test code = 414) MONOCYTES ABSOLUTE COUNT (BEAKER) 0.68 K/ L 0.24-0.36 H (test code = 415) EOSINOPHILS ABSOLUTE COUNT 0.32 K/ L 0.04-0.36 (BEAKER) (test code = 416) BASOPHILS ABSOLUTE COUNT (BEAKER) 0.04 K/ L 0.01-0.08 (test code = 417) IMMATURE GRANULOCYTES-RELATIVE 0 % 0-1 PERCENT (BEAKER) (test code = 2801) AFB CULTURE + [id number] 12:53:00 Test Item Value Reference Range Interpretation Comments CULTURE (BEAKER) (test No acid-fast bacilli code = 1095) isolated in 42 days AFB SMEAR (BEAKER) No acid fast bacilli (test code = 994) seen FUNGUS CULTURE + [id number] 18:00:00 Test Item Value Reference Range Interpretation Comments CULTURE (BEAKER) (test No fungus isolated in code = 1095) 28 days FUNGUS SMEAR (BEAKER) No fungi seen (test code = 1406) POCT-GLUCOSE [id number] 12:41:00 Test Item Value Reference Range Interpretation Comments POC-GLUCOSE METER 59 mg/dL 70-110 L Notified R N /TESTED AT (BEAKER) (test code = [facility] [address] [facility]8) [facility] 7703 0 POCT-GLUCOSE [id number] 08:51:00 Test Item Value Reference Range Interpretation Comments POC-GLUCOSE METER 461 mg/dL 70-110 HH Notified R N MD/TESTED (BEAKER) [facility]test code = [facility] [address] [place] [id number]) [facility] 7703 0 [id number] 06:03:00 Test Item Value Reference Range Interpretation Comments PHOSPHORUS (BEAKER) (test code = 3.7 mg/dL 2.3-4.7 604) [id number] 06:03:00 Test Item Value Reference Range Interpretation Comments MAGNESIUM (BEAKER) (test code = 1.6 mg/dL 1.6-2.6 627) BASIC METABOLIC [id number] 06:03:00 Test Item Value Reference Range Interpretation Comments SODIUM (BEAKER) 134 meq/L 136-145 L (test code = 381) POTASSIUM (BEAKER) 4.5 meq/L 3.5-5.1 (test code = 379) CHLORIDE (BEAKER) 97 meq/L 98-107 L (test code = 382) CO2 (BEAKER) (test 33 meq/L 22-29 H code = 355) BLOOD UREA NITROGEN 28 mg/dL 7-21 H (BEAKER) (test code = 354) CREATININE (BEAKER) 0.73 mg/dL 0.57-1.25 (test code = 358) GLUCOSE RANDOM 285 mg/dL 70-105 H (BEAKER) (test code = 652) CALCIUM (BEAKER) 8.4 mg/dL 8.4-10.2 (test code = 697) EGFR (BEAKER) (test 117 mL/min/1.73 ESTIM ATED GFR IS code = 1092) sq m NOT ACCURATE CREATININE CLEARANCE IN PREDICTING GLOMERULAR FILTRATION RATE . ESTIMATED GFR I S NOT APPLICABLE FOR DIALYSIS PATIEN TS. POCT-GLUCOSE [id number] 21:37:00 Test Item Value Reference Range Interpretation Comments POC-GLUCOSE METER 207 mg/dL 70-[address] [facility] 6720 (BEAKER) (test code = PAUL Tanner [facility] 1538) [address] POCT-GLUCOSE [id number] 18:28:00 Test Item Value Reference Range Interpretation Comments POC-GLUCOSE METER 207 mg/dL 70-[address] [facility] 6720 (BEAKER) (test code = PAUL Tanner [facility] 1538) [address] POCT-GLUCOSE [id number] 12:15:00 Test Item Value Reference Range Interpretation Comments POC-GLUCOSE METER 91 mg/dL 70-[address] [facility] 6720 (BEAKER) (test code = PAUL Tanner [facility] [address] 1538) POCT-GLUCOSE [id number] 08:38:00 Test Item Value Reference Range Interpretation Comments POC-GLUCOSE METER 189 mg/dL 70-[address] [facility] 6720 (BEAKER) (test code = PAUL Tanner [facility] 1538) [address] [id number] 05:25:00 Test Item Value Reference Range Interpretation Comments PHOSPHORUS (BEAKER) (test code = 4.0 mg/dL 2.3-4.7 604) [id number] 05:25:00 Test Item Value Reference Range Interpretation Comments MAGNESIUM (BEAKER) (test code = 1.4 mg/dL 1.6-2.6 L 627) BASIC METABOLIC [id number] 05:25:00 Test Item Value Reference Range Interpretation Comments SODIUM (BEAKER) 134 meq/L 136-145 L (test code = 381) POTASSIUM (BEAKER) 4.8 meq/L 3.5-5.1 (test code = 379) CHLORIDE (BEAKER) 95 meq/L 98-107 L (test code = 382) CO2 (BEAKER) (test 32 meq/L 22-29 H code = 355) BLOOD UREA NITROGEN 30 mg/dL 7-21 H (BEAKER) (test code = 354) CREATININE (BEAKER) 0.78 mg/dL 0.57-1.25 (test code = 358) GLUCOSE RANDOM 288 mg/dL 70-105 H (BEAKER) (test code = 652) CALCIUM (BEAKER) 8.3 mg/dL 8.4-10.2 L (test code = 697) EGFR (BEAKER) (test 108 mL/min/1.73 ESTIM ATED GFR IS code = 1092) sq m NOT ACCURATE CREATININE CLEARANCE IN PREDICTING GLOMERULAR FILTRATION RATE . ESTIMATED GFR I S NOT APPLICABLE FOR DIALYSIS PATIEN TS. POCT-GLUCOSE [id number] 21:35:00 Test Item Value Reference Range Interpretation Comments POC-GLUCOSE METER 170 mg/dL 70-[address] [facility] 6720 ([facility]) (test code = PAUL Tanner [facility] 1538) [address] POCT-GLUCOSE [id number] 18:20:00 Test Item Value Reference Range Interpretation Comments POC-GLUCOSE METER 276 mg/dL 70-[address] [facility] 6720 ([facility]) (test code = PAUL Tanner [facility] 1538) [address] RAD, ABDOMEN/KUB, 1 VIEW [id number] 15:00:00Reason for exam:->Abd distensionShould this be performed [...] abdomen exam. Signed: Sravanthi Flores Verified Date/Time: 0 11/16/2018 15:00:01 Reading Location: [address] Consult Reading Room POCT-GLUCOSE [id number] 13:21:00 Test Item Value Reference Range Interpretation Comments POC-GLUCOSE METER 108 mg/dL 70-[address] [facility] 6720 ([facility]) (test code = PAUL Tanner [facility] 1538) [address] BASIC METABOLIC [id number] 08:06:00 Test Item Value Reference Range Interpretation Comments SODIUM (BEAKER) 138 meq/L 136-145 (test code = 381) POTASSIUM (BEAKER) 4.5 meq/L 3.5-5.1 (test code = 379) CHLORIDE (BEAKER) 92 meq/L 98-107 L (test code = 382) CO2 (BEAKER) (test 40 meq/L 22-29 HH code = 355) BLOOD UREA NITROGEN 25 mg/dL 7-21 H (BEAKER) (test code = 354) CREATININE (BEAKER) 0.71 mg/dL 0.57-1.25 (test code = 358) GLUCOSE RANDOM 162 mg/dL 70-105 H (BEAKER) (test code = 652) CALCIUM (BEAKER) 8.2 mg/dL 8.4-10.2 L (test code = 697) EGFR (BEAKER) (test 121 mL/min/1.73 ESTIM ATED GFR IS code = 1092) sq m NOT ACCURATE CREATININE CLEARANCE IN PREDICTING GLOMERULAR FILTRATION RATE . ESTIMATED GFR I S NOT APPLICABLE FOR DIALYSIS PATIEN TS. [id number] 08:03:00 Test Item Value Reference Range Interpretation Comments PHOSPHORUS (BEAKER) (test code = 3.2 mg/dL 2.3-4.7 604) [id number] 08:03:00 Test Item Value Reference Range Interpretation Comments MAGNESIUM (BEAKER) (test code = 1.1 mg/dL 1.6-2.6 L 627) HEPATIC FUNCTION [id number] 08:03:00 Test Item Value Reference Range Interpretation Comments TOTAL PROTEIN (BEAKER) (test code = 6.4 gm/dL 6.0-8.3 770) ALBUMIN (BEAKER) (test code = 1145) 2.5 g/dL 3.5-5.0 L BILIRUBIN TOTAL (BEAKER) (test code 0.1 mg/dL 0.2-1.2 L = 377) BILIRUBIN DIRECT (BEAKER) (test 0.1 mg/dL 0.1-0.5 code = 706) ALKALINE PHOSPHATASE (BEAKER) (test 126 U/L 40-150 code = 346) AST (SGOT) (BEAKER) (test code = 29 U/L 5-34 353) ALT (SGPT) (BEAKER) (test code = 35 U/L 6-55 347) POCT-GLUCOSE [id number] 02:11:00 Test Item Value Reference Range Interpretation Comments POC-GLUCOSE METER 171 mg/dL 70-[address] [facility] 6720 (BEAKER) (test code = [place] 153) [address] POCT-GLUCOSE [id number] 22:03:00 Test Item Value Reference Range Interpretation Comments POC-GLUCOSE METER 264 mg/dL 70-110 H TESTED AT [place] [address] ([facility]) (test code = PAUL Tanner [facility] 1538) [address] POCT-GLUCOSE [id number] 18:03:00 Test Item Value Reference Range Interpretation Comments POC-GLUCOSE METER 293 mg/dL 70-110 H TESTED AT [place] [address] ([facility]) (test code = NAOMIOR Ciro [facility] 1538) [address] POCT-GLUCOSE [id number] 12:27:00 Test Item Value Reference Range Interpretation Comments POC-GLUCOSE METER 125 mg/dL 70-110 H TESTED AT [place] [address] ([facility]) (test code = [facility] Ciro [facility] 1538) [address] POCT-GLUCOSE [id number] 08:21:00 Test Item Value Reference Range Interpretation Comments POC-GLUCOSE METER 180 mg/dL 70-110 H TESTED AT [place] [address] ([facility]) (test code = [facility] Ciro [facility] 1538) [address] [id number] 07:20:00 Test Item Value Reference Range Interpretation Comments BLOOD UREA NITROGEN ([facility]) (test 18 mg/dL 7-21 code = 354) [id number] 07:20:00 Test Item Value Reference Range Interpretation Comments CREATININE ([facility]) 0.72 mg/dL 0.57-1.25 Specimen slightly (test code = 358) hemolyzed EGFR ([facility]) (test 119 mL/min/1.73 ESTIM ATED GFR IS code = 1092) sq m NOT ACCURATE CREATININE CLEARANCE IN PREDICTING GLOMERULAR FILTRATION RATE . ESTIMATED GFR I S NOT APPLICABLE FOR DIALYSIS PATIEN TS. CBC W/PLT COUNT & AUTO [id number] 07:03:00 Test Item Value Reference Range Interpretation Comments WHITE BLOOD CELL COUNT (BEAKER) 15.3 K/ L 3.5-10.5 H (test code = 775) RED BLOOD CELL COUNT (BEAKER) 3.58 M/ L 3.93-5.22 L (test code = 761) HEMOGLOBIN (BEAKER) (test code = 9.3 GM/DL 11.2-15.7 L 410) HEMATOCRIT (BEAKER) (test code = 32.0 % 34.1-44.9 L 411) MEAN CORPUSCULAR VOLUME (BEAKER) 89.4 fL 79.4-94.8 (test code = 753) MEAN CORPUSCULAR HEMOGLOBIN 26.0 pg 25.6-32.2 (BEAKER) (test code = 751) MEAN CORPUSCULAR HEMOGLOBIN CONC 29.1 GM/DL 32.2-35.5 L (BEAKER) (test code = 752) RED CELL DISTRIBUTION WIDTH 16.2 % 11.7-14.4 H (BEAKER) (test code = 412) PLATELET COUNT (BEAKER) (test 420 K/CU MM 150-450 code = 756) MEAN PLATELET VOLUME (BEAKER) 10.8 fL 9.4-12.3 (test code = 754) NUCLEATED RED BLOOD CELLS 0 /100 WBC 0-0 (BEAKER) (test code = 413) NEUTROPHILS RELATIVE PERCENT 86 % (BEAKER) (test code = 429) LYMPHOCYTES RELATIVE PERCENT 7 % (BEAKER) (test code = 430) MONOCYTES RELATIVE PERCENT 5 % (BEAKER) (test code = 431) EOSINOPHILS RELATIVE PERCENT 0 % (BEAKER) (test code = 432) BASOPHILS RELATIVE PERCENT 0 % (BEAKER) (test code = 437) NEUTROPHILS ABSOLUTE COUNT 13.20 K/ L 1.56-6.13 H (BEAKER) (test code = 670) LYMPHOCYTES ABSOLUTE COUNT 1.07 K/ L 1.18-3.74 L (BEAKER) (test code = 414) MONOCYTES ABSOLUTE COUNT (BEAKER) 0.75 K/ L 0.24-0.36 H (test code = 415) EOSINOPHILS ABSOLUTE COUNT 0.03 K/ L 0.04-0.36 L (BEAKER) (test code = 416) BASOPHILS ABSOLUTE COUNT (BEAKER) 0.02 K/ L 0.01-0.08 (test code = 417) IMMATURE GRANULOCYTES-RELATIVE 1 % 0-1 PERCENT (BEAKER) (test code = 2801) POCT-GLUCOSE [id number] 02:14:00 Test Item Value Reference Range Interpretation Comments POC-GLUCOSE METER 239 mg/dL 70-[address] [facility] 6720 (BEAKER) (test code = [place] 1538) [id number] POCT-GLUCOSE [id number] 21:33:00 Test Item Value Reference Range Interpretation Comments POC-GLUCOSE METER 108 mg/dL 70-[address] [facility] 6720 ([facility]) (test code = PAUL Tanner [facility] 1538) [address] POCT-GLUCOSE [id number] 17:52:00 Test Item Value Reference Range Interpretation Comments POC-GLUCOSE METER 101 mg/dL 70-[address] [facility] 6720 ([facility]) (test code = PAUL Tanner [facility] 1538) [address] POCT-GLUCOSE [id number] 13:35:00 Test Item Value Reference Range Interpretation Comments POC-GLUCOSE METER 308 mg/dL 70-110 H Notified R Collin STAPLETON/TESTED ([facility]) (test code = AT [facility] 6720 [facility] 1538) [facility] [address] 0 U/S, ABDOMINAL, [id number] 12:38:00Abdomen limited area? Add comment if clarification is needed.->LiverReason for exam:->please evaluate for cirrhosisFINAL REPORT Right upper quadrant abdominal ultrasound Clinical History: Cirrhosis COMPARISON: September 29, 2018 Discussion: Sonographic evaluation of the right upper [...] in size. There is no renal mass, hydronephrosis, or shadowing renal calculus. Segments of the inferior vena cava and aorta visualized demonstrate no abnormality. Impression: 1. Coarse liver echotexture without other sonographic indication of liver cirrhosis. Clinical correlation is recommended. If indicated, elastography can be performed for further assessment. 2. Contracted gallbladder secondary to recent meal. Signed: Von Jacobs MDReport Verified Date/Time: 11/14/2018 12:38:57 Reading Location: [address] Ultrasound [facility] [id number] 11:57:00 Test Item Value Reference Range Interpretation Comments CULTURE (BEAKER) PSEUDOMONAS A 4+ Pseudomo viki (test code = 1095) AERUGINOSA aeruginos a (MUCOID-PHENOTYPE (Mucoid-ph enotype ) ) Amikacin (test code Susceptible 0-16 S = 1) , Resistant <0 or >16 Aztreonam (test Susceptible 0-8 , S code = 32) Resistant <0 or >8 Cefepime (test code Susceptible 0-8 , S = 51) Resistant <0 or >8 Ceftazidime (test Susceptible 0-8 , S code = 27) Resistant <0 or >8 Ciprofloxacin (test Susceptible 0-1 , R code = 7) Resistant <0 or >1 Gentamicin (test Susceptible 0-4 , S code = 18) Resistant <0 or >4 Imipenem (test code Susceptible 0-2 , R = 19) Resistant <0 or >2 Levofloxacin (test Susceptible 0-2 , R code = 22) Resistant <0 or >2 Meropenem (test Susceptible 0-2 , R code = 34) Resistant <0 or >2 Piperacillin (test Susceptible 0-16 R code = 24) , Resistant <0 or >16 Piperacillin + Susceptible 0-16 S Tazobactam (test , Resistant <0 or code = 29) >16 Tobramycin (test Susceptible 0-4 , S code = 25) Resistant <0 or >4 CULTURE (BEAKER) PSEUDOMONAS A 4+ Pseudomo viki (test code = 1095) AERUGINOSA aeruginos a Amikacin (test code Susceptible 0-16 S = 1) , Resistant <0 or >16 Aztreonam (test Susceptible 0-8 , S code = 32) Resistant <0 or >8 Cefepime (test code Susceptible 0-8 , S = 51) Resistant <0 or >8 Ceftazidime (test Susceptible 0-8 , S code = 27) Resistant <0 or >8 Ciprofloxacin (test Susceptible 0-1 , S code = 7) Resistant <0 or >1 Gentamicin (test Susceptible 0-4 , R code = 18) Resistant <0 or >4 Imipenem (test code Susceptible 0-2 , R = 19) Resistant <0 or >2 Levofloxacin (test Susceptible 0-2 , S code = 22) Resistant <0 or >2 Meropenem (test Susceptible 0-2 , R code = 34) Resistant <0 or >2 Piperacillin (test Susceptible 0-16 R code = 24) , Resistant <0 or >16 Piperacillin + Susceptible 0-16 R Tazobactam (test , Resistant <0 or code = 29) >16 Tobramycin (test Susceptible 0-4 , S code = 25) Resistant <0 or >4 1+ Normal respiratory derick presentPOCT-GLUCOSE [id number] 09:19:00 Test Item Value Reference Range Interpretation Comments POC-GLUCOSE METER 385 mg/dL 70-110 H Notified R N MD/TESTED ([facility]) (test code = AT [facility] [address] [facility] [address]) [facility] [id number] 0 COMPREHENSIVE METABOLIC [id number] 08:26:00 Test Item Value Reference Range Interpretation Comments TOTAL PROTEIN 6.7 gm/dL 6.0-8.3 (BEAKER) (test code = 770) ALBUMIN (BEAKER) 2.6 g/dL 3.5-5.0 L (test code = 1145) ALKALINE PHOSPHATASE 138 U/L 40-150 (BEAKER) (test code = 346) BILIRUBIN TOTAL 0.1 mg/dL 0.2-1.2 L (BEAKER) (test code = 377) SODIUM (BEAKER) (test 138 meq/L 136-145 code = 381) POTASSIUM (BEAKER) 4.3 meq/L 3.5-5.1 (test code = 379) CHLORIDE (BEAKER) 95 meq/L 98-107 L (test code = 382) CO2 (BEAKER) (test 36 meq/L 22-29 H code = 355) BLOOD UREA NITROGEN 23 mg/dL 7-21 H (BEAKER) (test code = 354) CREATININE (BEAKER) 0.74 mg/dL 0.57-1.25 (test code = 358) GLUCOSE RANDOM 180 mg/dL 70-105 H (BEAKER) (test code = 652) CALCIUM (BEAKER) 8.6 mg/dL 8.4-10.2 (test code = 697) AST (SGOT) (BEAKER) 30 U/L 5-34 (test code = 353) ALT (SGPT) (BEAKER) 47 U/L 6-55 (test code = 347) EGFR ([facility]) (test 115 ESTIMATE D GFR IS code = 1092) mL/min/1.73 sq NOT ACCURA TE m CREATININE CLEARANCE IN PREDICTING GLOMERULAR FILTRATION RATE . ESTIMATED GFR I S NOT APPLICABLE FOR DIALYSIS PATIEN TS. POCT-GLUCOSE [id number] 02:51:00 Test Item Value Reference Range Interpretation Comments POC-GLUCOSE METER 353 mg/dL 70-110 H Notified R Collin STAPLETON/TESTED ([facility]) (test code = AT [address] 1538) [place] [address] 0 SCREEN, [id number] 22:52:00 Test Item Value Reference Range Interpretation Comments TEST URINE ([facility]) (test Negative code = 583) POCT-GLUCOSE [id number] 21:27:00 Test Item Value Reference Range Interpretation Comments POC-GLUCOSE METER 221 mg/dL 70-110 H TESTED AT [place] [address] ([facility]) (test code = PAUL Tanner [place] 264598) [address] POCT-GLUCOSE [id number] 19:14:00 Test Item Value Reference Range Interpretation Comments POC-GLUCOSE METER 60 mg/dL 70-110 L Notified R Collin STAPLETON/TESTED AT ([facility]) (test code = [place] 222468) [place] [address] 0 POCT-GLUCOSE [id number] 12:58:00 Test Item Value Reference Range Interpretation Comments POC-GLUCOSE METER 327 mg/dL 70-110 H TESTED AT [place] [address] ([facility]) (test code = PAUL Tanner [facility] 1538) [address] POCT-GLUCOSE [id number] 08:13:00 Test Item Value Reference Range Interpretation Comments POC-GLUCOSE METER 372 mg/dL 70-110 H TESTED AT [place] [address] ([facility]) (test code = PAUL Tanner [facility] 1538) [address] [id number] 05:57:00 Test Item Value Reference Range Interpretation Comments BLOOD UREA NITROGEN ([facility]) (test 14 mg/dL 05-14 code = 354) [id number] 05:57:00 Test Item Value Reference Range Interpretation Comments CREATININE ([facility]) 0.72 mg/dL 0.57-1.25 (test code = 358) EGFR (BEAKER) (test 119 mL/min/1.73 ESTIM ATED GFR IS code = 1092) sq m NOT ACCURATE CREATININE CLEARANCE IN PREDICTING GLOMERULAR FILTRATION RATE . ESTIMATED GFR I S NOT APPLICABLE FOR DIALYSIS PATIEN TS. POCT-GLUCOSE [id number] 01:39:00 Test Item Value Reference Range Interpretation Comments POC-GLUCOSE METER 267 mg/dL 70-110 H TESTED AT [place] [id number] ([facility]) (test code = PAUL Tanner [facility] 1538) [address] POCT-GLUCOSE [id number] 22:42:00 Test Item Value Reference Range Interpretation Comments POC-GLUCOSE METER 97 mg/dL 70-110 TESTED AT [place] [address] ([facility]) (test code = NAOMIOR Ciro [facility] [address] 1538) POCT-GLUCOSE [id number] 21:47:00 Test Item Value Reference Range Interpretation Comments POC-GLUCOSE METER 64 mg/dL 70-110 L Notified Ciro Polanco MD/TESTED AT ([facility]) (test code = [address] 15[address]) [facility] [address] 0 POCT-GLUCOSE [id number] 18:48:00 Test Item Value Reference Range Interpretation Comments POC-GLUCOSE METER 198 mg/dL 70-110 H TESTED AT [place] [address] ([facility]) (test code = PAUL Tanner [facility] 1538) [address] COMPREHENSIVE METABOLIC [id number] 18:06:00 Test Item Value Reference Range Interpretation Comments TOTAL PROTEIN 6.9 gm/dL 6.0-8.3 (BEAKER) (test code = 770) ALBUMIN (BEAKER) 2.6 g/dL 3.5-5.0 L (test code = 1145) ALKALINE PHOSPHATASE 151 U/L 40-150 H (BEAKER) (test code = 346) BILIRUBIN TOTAL 0.1 mg/dL 0.2-1.2 L (BEAKER) (test code = 377) SODIUM (BEAKER) (test 139 meq/L 136-145 code = 381) POTASSIUM (BEAKER) 3.6 meq/L 3.5-5.1 (test code = 379) CHLORIDE (BEAKER) 99 meq/L 98-107 (test code = 382) CO2 (BEAKER) (test 30 meq/L 22-29 H code = 355) BLOOD UREA NITROGEN 12 mg/dL 7-21 (BEAKER) (test code = 354) CREATININE (BEAKER) 0.80 mg/dL 0.57-1.25 (test code = 358) GLUCOSE RANDOM 169 mg/dL 70-105 H (BEAKER) (test code = 652) CALCIUM (BEAKER) 8.9 mg/dL 8.4-10.2 (test code = 697) AST (SGOT) (BEAKER) 170 U/L 5-34 H (test code = 353) ALT (SGPT) (BEAKER) 77 U/L 6-55 H (test code = 347) EGFR (BEAKER) (test 105 ESTIMATE D GFR IS code = 1092) mL/min/1.73 sq NOT ACCURA TE m CREATININE CLEARANCE IN PREDICTING GLOMERULAR FILTRATION RATE . ESTIMATED GFR I S NOT APPLICABLE FOR DIALYSIS PATIEN TS. [id number] 18:06:00 Test Item Value Reference Range Interpretation Comments LIPASE (BEAKER) (test code = 749) < U/L 8-78 L URINALYSIS WITH MICROSCOPIC IF [id number] 17:06:00 Test Item Value Reference Range Interpretation Comments COLOR (BEAKER) (test code = 470) Yellow CLARITY (BEAKER) (test code = 469) Clear SPECIFIC GRAVITY UA (BEAKER) (test 1.014 1.001-1.035 code = 468) PH UA (BEAKER) (test code = 467) 7.0 5.0-8.0 PROTEIN UA (BEAKER) (test code = 70 mg/dL Negative A 464) GLUCOSE UA (BEAKER) (test code = Negative Negative 365) KETONES UA (BEAKER) (test code = Trace Negative A 371) BILIRUBIN UA (BEAKER) (test code = Negative Negative 462) BLOOD UA (BEAKER) (test code = 461) Negative Negative NITRITE UA (BEAKER) (test code = Negative Negative 465) LEUKOCYTE ESTERASE UA (BEAKER) Negative Negative (test code = 466) UROBILINOGEN UA (BEAKER) (test code 0.2 mg/dL 0.2-1.0 = 463) SOURCE(BEAKER) (test code = 2795) URINALYSIS [id number] 17:06:00 Test Item Value Reference Range Interpretation Comments RBC UA (BEAKER) (test code = 519) 1 /HPF WBC UA (BEAKER) (test code = 520) 8 /HPF SQUAMOUS EPITHELIAL (BEAKER) (test 1 /HPF code = 516) POCT-GLUCOSE [id number] 13:05:00 Test Item Value Reference Range Interpretation Comments POC-GLUCOSE METER 120 mg/dL 70-[address] [facility] 6720 ([facility]) (test code = PAUL Tanner [place] 1538) [address] RAD, ABDOMEN/KUB, 1 VIEW [id number] 12:20:00Reason for exam:->abdominal painFINAL REPORT ONE VIEW [...] pattern. Signed: Leonarda Rosas MDReport Verified Date/Time: 11/12/2018 12:20:31 Reading Location: [address] Transitional Reading Room [id number] 08:09:00 Test Item Value Reference Range Interpretation Comments BLOOD UREA NITROGEN (BEAKER) (test 12 mg/dL 7- code = 354) [id number] 08:09:00 Test Item Value Reference Range Interpretation Comments CREATININE (BEAKER) 0.72 mg/dL 0.57-1.25 (test code = 358) EGFR (BEAKER) (test 119 mL/min/1.73 ESTIM ATED GFR IS code = 1092) sq m NOT ACCURATE CREATININE CLEARANCE IN PREDICTING GLOMERULAR FILTRATION RATE . ESTIMATED GFR I S NOT APPLICABLE FOR DIALYSIS PATIEN TS. POCT-GLUCOSE [id number] 08:05:00 Test Item Value Reference Range Interpretation Comments POC-GLUCOSE METER 144 mg/dL 70-[address] [facility] 6720 ([facility]) (test code = PAUL Tanner [facility] 1538) [address] POCT-GLUCOSE [id number] 03:58:00 Test Item Value Reference Range Interpretation Comments POC-GLUCOSE METER 316 mg/dL 70-110 H Notified Ciro Polanco MD/TESTED ([facility]) (test code = AT [address] 1538) [facility] 7[address] 0 POCT-GLUCOSE [id number] 21:17:00 Test Item Value Reference Range Interpretation Comments POC-GLUCOSE METER 238 mg/dL 70-110 H TESTED AT [place] [address] ([facility]) (test code = PAUL Tanner [facility] 1538) [address] POCT-GLUCOSE [id number] 18:22:00 Test Item Value Reference Range Interpretation Comments POC-GLUCOSE METER 278 mg/dL 70-110 H TESTED AT [place] [address] ([facility]) (test code = PAUL Tanner [facility] 1538) [address] POCT-GLUCOSE [id number] 14:14:00 Test Item Value Reference Range Interpretation Comments POC-GLUCOSE METER 137 mg/dL 70-110 H TESTED AT [place] [address] ([facility]) (test code = PAUL Tanner [facility] 1538) [address] POCT-GLUCOSE [id number] 09:28:00 Test Item Value Reference Range Interpretation Comments POC-GLUCOSE METER 356 mg/dL 70-110 H TESTED AT [place] [address] ([facility]) (test code = PAUL Tanner [facility] 1538) [address] [id number] 07:01:00 Test Item Value Reference Range Interpretation Comments BLOOD UREA NITROGEN ([facility]) (test 17 mg/dL 7-21 code = 354) [id number] 07:01:00 Test Item Value Reference Range Interpretation Comments CREATININE ([facility]) 0.77 mg/dL 0.57-1.25 (test code = 358) EGFR ([facility]) (test 110 mL/min/1.73 ESTIM ATED GFR IS code = 1092) sq m NOT ACCURATE CREATININE CLEARANCE IN PREDICTING GLOMERULAR FILTRATION RATE . ESTIMATED GFR I S NOT APPLICABLE FOR DIALYSIS PATIEN TS. POCT-GLUCOSE [id number] 02:54:00 Test Item Value Reference Range Interpretation Comments POC-GLUCOSE METER 347 mg/dL 70-110 H Notified Ciro Polanco MD/TESTED ([facility]) (test code = AT [address] 1538) [facility] 7[address] 0 POCT-GLUCOSE [id number] 22:43:00 Test Item Value Reference Range Interpretation Comments POC-GLUCOSE METER 139 mg/dL 70-[address] [facility] 6720 (BEAKER) (test code = PAUL Tanner [facility] 1538) [address] POCT-GLUCOSE [id number] 19:28:00 Test Item Value Reference Range Interpretation Comments POC-GLUCOSE METER 91 mg/dL 70-[address] [facility] 6720 (BEAKER) (test code = PAUL Tanner [facility] [address] 1538) POCT-GLUCOSE [id number] 18:09:00 Test Item Value Reference Range Interpretation Comments POC-GLUCOSE METER 137 mg/dL 70-[address] [facility] 6720 (BEAKER) (test code = PAUL Tanner [facility] 1538) [address] BASIC METABOLIC [id number] 17:48:00 Test Item Value Reference Range Interpretation Comments SODIUM (BEAKER) 139 meq/L 136-145 (test code = 381) POTASSIUM (BEAKER) 3.5 meq/L 3.5-5.1 (test code = 379) CHLORIDE (BEAKER) 101 meq/L 98-107 (test code = 382) CO2 (BEAKER) (test 29 meq/L 22-29 code = 355) BLOOD UREA NITROGEN 19 mg/dL 7-21 (BEAKER) (test code = 354) CREATININE (BEAKER) 0.79 mg/dL 0.57-1.25 (test code = 358) GLUCOSE RANDOM 119 mg/dL 70-105 H (BEAKER) (test code = 652) CALCIUM (BEAKER) 8.7 mg/dL 8.4-10.2 (test code = 697) EGFR (BEAKER) (test 107 mL/min/1.73 ESTIM ATED GFR IS code = 1092) sq m NOT ACCURATE CREATININE CLEARANCE IN PREDICTING GLOMERULAR FILTRATION RATE . ESTIMATED GFR I S NOT APPLICABLE FOR DIALYSIS PATIEN TS. POCT-GLUCOSE [id number] 12:39:00 Test Item Value Reference Range Interpretation Comments POC-GLUCOSE METER 380 mg/dL 70-110 H Notified Ciro Polanco MD/TESTED (BEAKER) (test code = AT [facility] [address] [place] 1538) [facility] 7703 0 POCT-GLUCOSE [id number] 08:22:00 Test Item Value Reference Range Interpretation Comments POC-GLUCOSE METER 266 mg/dL 70-110 H TESTED AT [place] [address] ([facility]) (test code = [facility] Ciro [facility] 1538) [address] [id number] 07:14:00 Test Item Value Reference Range Interpretation Comments BLOOD UREA NITROGEN (BEAKER) (test 23 mg/dL 7-21 H code = 354) [id number] 07:14:00 Test Item Value Reference Range Interpretation Comments CREATININE (BEAKER) 0.80 mg/dL 0.57-1.25 (test code = 358) EGFR (BEAKER) (test 105 mL/min/1.73 ESTIM ATED GFR IS code = 1092) sq m NOT ACCURATE CREATININE CLEARANCE IN PREDICTING GLOMERULAR FILTRATION RATE . ESTIMATED GFR I S NOT APPLICABLE FOR DIALYSIS PATIEN TS. POCT-GLUCOSE [id number] 05:06:00 Test Item Value Reference Range Interpretation Comments POC-GLUCOSE METER 135 mg/dL 70-110 H TESTED AT [place] [address] ([facility]) (test code = [facility] 1538) [address] POCT-GLUCOSE [id number] 21:42:00 Test Item Value Reference Range Interpretation Comments POC-GLUCOSE METER 226 mg/dL 70-110 H TESTED AT [place] [address] ([facility]) (test code = [facility] 1538) [address] POCT-GLUCOSE [id number] 21:40:00 Test Item Value Reference Range Interpretation Comments POC-GLUCOSE METER 238 mg/dL 70-110 H TESTED AT [place] [address] ([facility]) (test code = [facility] 1538) [address] BASIC METABOLIC [id number] 17:23:00 Test Item Value Reference Range Interpretation Comments SODIUM (BEAKER) 140 meq/L 136-145 (test code = 381) POTASSIUM (BEAKER) 4.7 meq/L 3.5-5.1 Specimen slightly (test code = 379) hemolyzed CHLORIDE (BEAKER) 103 meq/L 98-107 (test code = 382) CO2 (BEAKER) (test 26 meq/L 22-29 code = 355) BLOOD UREA NITROGEN 19 mg/dL 7-21 (BEAKER) (test code = 354) CREATININE (BEAKER) 0.96 mg/dL 0.57-1.25 Specimen slightly (test code = 358) hemolyzed GLUCOSE RANDOM 181 mg/dL 70-105 H (BEAKER) (test code = 652) CALCIUM (StaffInsightAKER) 8.9 mg/dL 8.4-10.2 (test code = 697) EGFR [facility] (test 85 mL/min/1.73 ESTIMA MAGDALENO GFR IS code = 1092) sq m NOT ACCURATE CREATININE CLEARANCE IN PREDICTING GLOMERULAR FILTRATION RATE . ESTIMATED GFR I S NOT APPLICABLE FOR DIALYSIS PATIEN TS. SPIN/CONCENTRATION [id number] 14:16:00 Test Item Value Reference Range Interpretation Comments CONCENTRATION CHARGED ([employer] [facility]) (test Done code = 2657) POCT-GLUCOSE [id number] 13:50:00 Test Item Value Reference Range Interpretation Comments POC-GLUCOSE METER 289 mg/dL 70-[address] [facility] 6720 ([employer]) (test code = [place] 1538) [address] CF RESPIRATORY [id number] 09:17:00 Test Item Value Reference Range Interpretation Comments CULTURE ([employer] [facility]) PSEUDOMONAS A 4+ Pseudomo viki (test code = 1095) AERUGINOSA aeruginos a (MUCOID-PHENOTYPE (Mucoid-ph enotype ) ) Amikacin (test code Susceptible 0-16 S = 1) , Resistant <0 or >16 Aztreonam (test Susceptible 0-8 , S code = 32) Resistant <0 or >8 Cefepime (test code Susceptible 0-8 , S = 51) Resistant <0 or >8 Ceftazidime (test Susceptible 0-8 , S code = 27) Resistant <0 or >8 Ciprofloxacin (test Susceptible 0-1 , R code = 7) Resistant <0 or >1 Gentamicin (test Susceptible 0-4 , R code = 18) Resistant <0 or >4 Imipenem (test code Susceptible 0-2 , R = 19) Resistant <0 or >2 Levofloxacin (test Susceptible 0-2 , R code = 22) Resistant <0 or >2 Meropenem (test Susceptible 0-2 , R code = 34) Resistant <0 or >2 Piperacillin (test Susceptible 0-16 S code = 24) , Resistant <0 or >16 Piperacillin + Susceptible 0-16 S Tazobactam (test , Resistant <0 or code = 29) >16 Tobramycin (test Susceptible 0-4 , S code = 25) Resistant <0 or >4 CULTURE ([facility]) PSEUDOMONAS A 2+ Pseudomo viki (test code = 1095) AERUGINOSA aeruginos a Amikacin (test code Susceptible 0-16 S = 1) , Resistant <0 or >16 Aztreonam (test Susceptible 0-8 , S code = 32) Resistant <0 or >8 Cefepime (test code Susceptible 0-8 , S = 51) Resistant <0 or >8 Ceftazidime (test Susceptible 0-8 , S code = 27) Resistant <0 or >8 Ciprofloxacin (test Susceptible 0-1 , R code = 7) Resistant <0 or >1 Gentamicin (test Susceptible 0-4 , S code = 18) Resistant <0 or >4 Imipenem (test code Susceptible 0-2 , R = 19) Resistant <0 or >2 Levofloxacin (test Susceptible 0-2 , R code = 22) Resistant <0 or >2 Meropenem (test Susceptible 0-2 , R code = 34) Resistant <0 or >2 Piperacillin (test Susceptible 0-16 R code = 24) , Resistant <0 or >16 Piperacillin + Susceptible 0-16 S Tazobactam (test , Resistant <0 or code = 29) >16 Tobramycin (test Susceptible 0-4 , S code = 25) Resistant <0 or >4 4+ Normal respiratory derick presentPOCT-GLUCOSE [id number] 08:57:00 Test Item Value Reference Range Interpretation Comments POC-GLUCOSE METER 258 mg/dL 70-[address] [facility] 6720 ([facility]) (test code = [place] 1538) [address] [id number] 06:06:00 Test Item Value Reference Range Interpretation Comments BLOOD UREA NITROGEN ([employer] [facility]) (test 15 mg/dL 7-21 code = 354) [id number] 06:06:00 Test Item Value Reference Range Interpretation Comments CREATININE ([facility]) 0.85 mg/dL 0.57-1.25 (test code = 358) EGFR ([facility] (test 98 mL/min/1.73 ESTIMA MAGDALENO GFR IS code = 1092) sq m NOT ACCURATE CREATININE CLEARANCE IN PREDICTING GLOMERULAR FILTRATION RATE . ESTIMATED GFR I S NOT APPLICABLE FOR DIALYSIS PATIEN TS. BASIC METABOLIC [id number] 06:06:00 Test Item Value Reference Range Interpretation Comments SODIUM ([facility]) 135 meq/L 136-145 L (test code = 381) POTASSIUM (BEAKER) 5.5 meq/L 3.5-5.1 H (test code = 379) CHLORIDE (BEAKER) 99 meq/L 98-107 (test code = 382) CO2 (BEAKER) (test 31 meq/L 22-29 H code = 355) BLOOD UREA NITROGEN 15 mg/dL 7-21 (BEAKER) (test code = 354) CREATININE (BEAKER) 0.85 mg/dL 0.57-1.25 (test code = 358) GLUCOSE RANDOM 333 mg/dL 70-105 H (BEAKER) (test code = 652) CALCIUM (BEAKER) 8.0 mg/dL 8.4-10.2 L (test code = 697) EGFR (BEAKER) (test 98 mL/min/1.73 ESTIMA MAGDALENO GFR IS code = 1092) sq m NOT ACCURATE CREATININE CLEARANCE IN PREDICTING GLOMERULAR FILTRATION RATE . ESTIMATED GFR I S NOT APPLICABLE FOR DIALYSIS PATIEN TS. HEMOGLOBIN [id number] 05:36:00 Test Item Value Reference Range Interpretation Comments HEMOGLOBIN A1C (BEAKER) (test code = 11.8 % 4.3-6.1 H 368) POCT-GLUCOSE [id number] 05:21:00 Test Item Value Reference Range Interpretation Comments POC-GLUCOSE METER 362 mg/dL 70-[address] [facility] 6720 (BEAKER) (test code = PAUL Tanner [place] [address]) [address] POCT-GLUCOSE [id number] 03:44:00 Test Item Value Reference Range Interpretation Comments POC-GLUCOSE METER 442 mg/dL 70-110 HH Notified R Collin STAPLETON/TESTED (BEAKER) (test code = AT [facility] 6720 [place] [id number]) [facility] 7[address] 0 COMPREHENSIVE METABOLIC [id number] 02:03:00 Test Item Value Reference Range Interpretation Comments TOTAL PROTEIN 7.0 gm/dL 6.0-8.3 (BEAKER) (test code = 770) ALBUMIN (BEAKER) 2.5 g/dL 3.5-5.0 L (test code = 1145) ALKALINE PHOSPHATASE 179 U/L 40-150 H (BEAKER) (test code = 346) BILIRUBIN TOTAL 0.1 mg/dL 0.2-1.2 L (BEAKER) (test code = 377) SODIUM (BEAKER) (test 133 meq/L 136-145 L code = 381) POTASSIUM (BEAKER) 6.2 meq/L 3.5-5.1 HH (test code = 379) CHLORIDE (BEAKER) 99 meq/L 98-107 (test code = 382) CO2 (BEAKER) (test 28 meq/L 22-29 code = 355) BLOOD UREA NITROGEN 14 mg/dL 7-21 (BEAKER) (test code = 354) CREATININE (BEAKER) 0.89 mg/dL 0.57-1.25 (test code = 358) GLUCOSE RANDOM 398 mg/dL 70-105 H (BEAKER) (test code = 652) CALCIUM (BEAKER) 7.7 mg/dL 8.4-10.2 L (test code = 697) AST (SGOT) (BEAKER) 11 U/L 5-34 (test code = 353) ALT (SGPT) (BEAKER) 7 U/L 6-55 (test code = 347) EGFR (BEAKER) (test 93 mL/min/1.73 ESTIMA MAGDALENO GFR IS code = 1092) sq m NOT ACCURATE CREATININE CLEARANCE IN PREDICTING GLOMERULAR FILTRATION RATE . ESTIMATED GFR I S NOT APPLICABLE FOR DIALYSIS PATIEN TS. [id number] 01:59:00 Test Item Value Reference Range Interpretation Comments PHOSPHORUS (BEAKER) (test code = 3.6 mg/dL 2.3-4.7 604) [id number] 01:59:00 Test Item Value Reference Range Interpretation Comments MAGNESIUM (BEAKER) (test code = 1.6 mg/dL 1.6-2.6 627) GAMMA GLUTAMYL TRANSFERASE (GGT)[id number] 01:59:00 Test Item Value Reference Range Interpretation Comments GAMMA GLUTAMYL TRANSFERASE (BEAKER) 40 U/L 9-64 (test code = 364) LACTIC ACID, VENOUS, WHOLE [id number] 01:57:00 Test Item Value Reference Range Interpretation Comments LACTATE BLOOD VENOUS (2) (BEAKER) 0.9 mmol/L 0.5-2.2 (test code = 2872) CBC W/PLT COUNT & AUTO [id number] 01:40:00 Test Item Value Reference Range Interpretation Comments WHITE BLOOD CELL COUNT (BEAKER) 21.2 K/ L 3.5-10.5 H (test code = 775) RED BLOOD CELL COUNT (BEAKER) 3.67 M/ L 3.93-5.22 L (test code = 761) HEMOGLOBIN (BEAKER) (test code = 9.9 GM/DL 11.2-15.7 L 410) HEMATOCRIT (BEAKER) (test code = 32.4 % 34.1-44.9 L 411) MEAN CORPUSCULAR VOLUME (BEAKER) 88.3 fL 79.4-94.8 (test code = 753) MEAN CORPUSCULAR HEMOGLOBIN 27.0 pg 25.6-32.2 (BEAKER) (test code = 751) MEAN CORPUSCULAR HEMOGLOBIN CONC 30.6 GM/DL 32.2-35.5 L (BEAKER) (test code = 752) RED CELL DISTRIBUTION WIDTH 15.8 % 11.7-14.4 H (BEAKER) (test code = 412) PLATELET COUNT (BEAKER) (test 323 K/CU MM 150-450 code = 756) MEAN PLATELET VOLUME (BEAKER) 11.1 fL 9.4-12.3 (test code = 754) NUCLEATED RED BLOOD CELLS 0 /100 WBC 0-0 (BEAKER) (test code = 413) NEUTROPHILS RELATIVE PERCENT 94 % (BEAKER) (test code = 429) LYMPHOCYTES RELATIVE PERCENT 3 % (BEAKER) (test code = 430) MONOCYTES RELATIVE PERCENT 3 % (BEAKER) (test code = 431) EOSINOPHILS RELATIVE PERCENT 0 % (BEAKER) (test code = 432) BASOPHILS RELATIVE PERCENT 0 % (BEAKER) (test code = 437) NEUTROPHILS ABSOLUTE COUNT 19.85 K/ L 1.56-6.13 H (BEAKER) (test code = 670) LYMPHOCYTES ABSOLUTE COUNT 0.67 K/ L 1.18-3.74 L (BEAKER) (test code = 414) MONOCYTES ABSOLUTE COUNT (BEAKER) 0.55 K/ L 0.24-0.36 H (test code = 415) EOSINOPHILS ABSOLUTE COUNT 0.00 K/ L 0.04-0.36 L (BEAKER) (test code = 416) BASOPHILS ABSOLUTE COUNT (BEAKER) 0.03 K/ L 0.01-0.08 (test code = 417) IMMATURE GRANULOCYTES-RELATIVE 1 % 0-1 PERCENT (BEAKER) (test code = 2801) RAD, CHEST, 2 [id number] 21:08:00Reason for exam:->Cystic FibrosisShould this be performed [...] Schmidt Verified Date/Time: 11/08/2018 21:08:35 Reading Location: [facility] Radiology Reading Room AFB CULTURE + [id number] 12:42:00 Test Item Value Reference Range Interpretation Comments CULTURE (BEAKER) (test No acid-fast bacilli code = 1095) isolated in 42 days AFB SMEAR ([facility]) No acid fast bacilli (test code = 994) seen POCT-GLUCOSE [id number] 12:08:00 Test Item Value Reference Range Interpretation Comments POC-GLUCOSE METER 140 mg/dL 70-[address] [facility] 67[address] ([facility]) (test code = PAUL Tanner [facility] 1538) [address] COMPREHENSIVE METABOLIC [id number] 10:03:00 Test Item Value Reference Range Interpretation Comments TOTAL PROTEIN 6.8 gm/dL 6.0-8.3 (BEAKER) (test code = 770) ALBUMIN (BEAKER) 3.1 g/dL 3.5-5.0 L (test code = 1145) ALKALINE PHOSPHATASE 98 U/L 40-150 (BEAKER) (test code = 346) BILIRUBIN TOTAL 0.2 mg/dL 0.2-1.2 (BEAKER) (test code = 377) SODIUM (BEAKER) (test 136 meq/L 136-145 code = 381) POTASSIUM (BEAKER) 4.4 meq/L 3.5-5.1 (test code = 379) CHLORIDE (BEAKER) 97 meq/L 98-107 L (test code = 382) CO2 (BEAKER) (test 33 meq/L 22-29 H code = 355) BLOOD UREA NITROGEN 17 mg/dL 7-21 (BEAKER) (test code = 354) CREATININE (BEAKER) 0.68 mg/dL 0.57-1.25 (test code = 358) GLUCOSE RANDOM 234 mg/dL 70-105 H (BEAKER) (test code = 652) CALCIUM (BEAKER) 9.1 mg/dL 8.4-10.2 (test code = 697) AST (SGOT) (BEAKER) 12 U/L 5-34 (test code = 353) ALT (SGPT) (BEAKER) 23 U/L 6-55 (test code = 347) EGFR (BEAKER) (test 127 ESTIMATE D GFR IS code = 1092) mL/min/1.73 sq NOT ACCURA TE m CREATININE CLEARANCE IN PREDICTING GLOMERULAR FILTRATION RATE . ESTIMATED GFR I S NOT APPLICABLE FOR DIALYSIS PATIEN TS. CBC W/PLT COUNT & AUTO [id number] 09:50:00 Test Item Value Reference Range Interpretation Comments WHITE BLOOD CELL COUNT (BEAKER) 10.5 K/ L 3.5-10.5 (test code = 775) RED BLOOD CELL COUNT (BEAKER) 4.14 M/ L 3.93-5.22 (test code = 761) HEMOGLOBIN (BEAKER) (test code = 11.2 GM/DL 11.2-15.7 410) HEMATOCRIT (BEAKER) (test code = 36.8 % 34.1-44.9 411) MEAN CORPUSCULAR VOLUME (BEAKER) 88.9 fL 79.4-94.8 (test code = 753) MEAN CORPUSCULAR HEMOGLOBIN 27.1 pg 25.6-32.2 (BEAKER) (test code = 751) MEAN CORPUSCULAR HEMOGLOBIN CONC 30.4 GM/DL 32.2-35.5 L (BEAKER) (test code = 752) RED CELL DISTRIBUTION WIDTH 17.4 % 11.7-14.4 H (BEAKER) (test code = 412) PLATELET COUNT (BEAKER) (test 302 K/CU MM 150-450 code = 756) MEAN PLATELET VOLUME (BEAKER) 11.2 fL 9.4-12.3 (test code = 754) NUCLEATED RED BLOOD CELLS 0 /100 WBC 0-0 (BEAKER) (test code = 413) NEUTROPHILS RELATIVE PERCENT 59 % (BEAKER) (test code = 429) LYMPHOCYTES RELATIVE PERCENT 29 % (BEAKER) (test code = 430) MONOCYTES RELATIVE PERCENT 8 % (BEAKER) (test code = 431) EOSINOPHILS RELATIVE PERCENT 4 % (BEAKER) (test code = 432) BASOPHILS RELATIVE PERCENT 0 % (BEAKER) (test code = 437) NEUTROPHILS ABSOLUTE COUNT 6.20 K/ L 1.56-6.13 H (BEAKER) (test code = 670) LYMPHOCYTES ABSOLUTE COUNT 3.05 K/ L 1.18-3.74 (BEAKER) (test code = 414) MONOCYTES ABSOLUTE COUNT (BEAKER) 0.85 K/ L 0.24-0.36 H (test code = 415) EOSINOPHILS ABSOLUTE COUNT 0.37 K/ L 0.04-0.36 H (BEAKER) (test code = 416) BASOPHILS ABSOLUTE COUNT (BEAKER) 0.02 K/ L 0.01-0.08 (test code = 417) IMMATURE GRANULOCYTES-RELATIVE 0 % 0-1 PERCENT (BEAKER) (test code = 2801) POCT-GLUCOSE [id number] 09:50:00 Test Item Value Reference Range Interpretation Comments POC-GLUCOSE METER 271 mg/dL 70-110 H TESTED AT [place] [address] ([facility]) (test code = PAUL Tanner [facility] 1538) [id number] POCT-GLUCOSE [id number] 01:59:00 Test Item Value Reference Range Interpretation Comments POC-GLUCOSE METER 377 mg/dL 70-110 H Notified R Collin STAPLETON/TESTED ([facility]) (test code = AT [place] [address] [address] 7703 0 POCT-GLUCOSE [id number] 21:37:00 Test Item Value Reference Range Interpretation Comments POC-GLUCOSE METER 92 mg/dL 70-110 TESTED AT [place] [address] ([facility]) (test code = PAUL Tanner [facility] [id number] 1538) POCT-GLUCOSE [id number] 17:50:00 Test Item Value Reference Range Interpretation Comments POC-GLUCOSE METER 183 mg/dL 70-110 H TESTED AT [place] [address] ([facility]) (test code = PAUL Tanner [facility] 1538) [address] POCT-GLUCOSE [id number] 13:40:00 Test Item Value Reference Range Interpretation Comments POC-GLUCOSE METER 230 mg/dL 70-[address] [facility] 6720 (BEAKER) (test code = PAUL [place] 1538) [address] COMPREHENSIVE METABOLIC [id number] 10:59:00 Test Item Value Reference Range Interpretation Comments TOTAL PROTEIN 7.0 gm/dL 6.0-8.3 (BEAKER) (test code = 770) ALBUMIN (BEAKER) 3.2 g/dL 3.5-5.0 L (test code = 1145) ALKALINE PHOSPHATASE 100 U/L 40-150 (BEAKER) (test code = 346) BILIRUBIN TOTAL 0.2 mg/dL 0.2-1.2 (BEAKER) (test code = 377) SODIUM (BEAKER) (test 135 meq/L 136-145 L code = 381) POTASSIUM (BEAKER) 4.3 meq/L 3.5-5.1 (test code = 379) CHLORIDE (BEAKER) 97 meq/L 98-107 L (test code = 382) CO2 (BEAKER) (test 32 meq/L 22-29 H code = 355) BLOOD UREA NITROGEN 13 mg/dL 7-21 (BEAKER) (test code = 354) CREATININE (BEAKER) 0.67 mg/dL 0.57-1.25 (test code = 358) GLUCOSE RANDOM 223 mg/dL 70-105 H (BEAKER) (test code = 652) CALCIUM (BEAKER) 9.1 mg/dL 8.4-10.2 (test code = 697) AST (SGOT) (BEAKER) 14 U/L 5-34 (test code = 353) ALT (SGPT) (BEAKER) 27 U/L 6-55 (test code = 347) EGFR (BEAKER) (test 129 ESTIMATE D GFR IS code = 1092) mL/min/1.73 sq NOT ACCURA TE m CREATININE CLEARANCE IN PREDICTING GLOMERULAR FILTRATION RATE . ESTIMATED GFR I S NOT APPLICABLE FOR DIALYSIS PATIEN TS. CBC W/PLT COUNT & AUTO [id number] 10:45:00 Test Item Value Reference Range Interpretation Comments WHITE BLOOD CELL COUNT (BEAKER) 12.9 K/ L 3.5-10.5 H (test code = 775) RED BLOOD CELL COUNT (BEAKER) 4.07 M/ L 3.93-5.22 (test code = 761) HEMOGLOBIN (BEAKER) (test code = 11.0 GM/DL 11.2-15.7 L 410) HEMATOCRIT (BEAKER) (test code = 36.6 % 34.1-44.9 411) MEAN CORPUSCULAR VOLUME (BEAKER) 89.9 fL 79.4-94.8 (test code = 753) MEAN CORPUSCULAR HEMOGLOBIN 27.0 pg 25.6-32.2 (BEAKER) (test code = 751) MEAN CORPUSCULAR HEMOGLOBIN CONC 30.1 GM/DL 32.2-35.5 L (BEAKER) (test code = 752) RED CELL DISTRIBUTION WIDTH 17.7 % 11.7-14.4 H (BEAKER) (test code = 412) PLATELET COUNT (BEAKER) (test 307 K/CU MM 150-450 code = 756) MEAN PLATELET VOLUME (BEAKER) 11.5 fL 9.4-12.3 (test code = 754) NUCLEATED RED BLOOD CELLS 0 /100 WBC 0-0 (BEAKER) (test code = 413) NEUTROPHILS RELATIVE PERCENT 65 % (BEAKER) (test code = 429) LYMPHOCYTES RELATIVE PERCENT 23 % (BEAKER) (test code = 430) MONOCYTES RELATIVE PERCENT 8 % (BEAKER) (test code = 431) EOSINOPHILS RELATIVE PERCENT 3 % (BEAKER) (test code = 432) BASOPHILS RELATIVE PERCENT 0 % (BEAKER) (test code = 437) NEUTROPHILS ABSOLUTE COUNT 8.36 K/ L 1.56-6.13 H (BEAKER) (test code = 670) LYMPHOCYTES ABSOLUTE COUNT 3.01 K/ L 1.18-3.74 (BEAKER) (test code = 414) MONOCYTES ABSOLUTE COUNT (BEAKER) 1.02 K/ L 0.24-0.36 H (test code = 415) EOSINOPHILS ABSOLUTE COUNT 0.43 K/ L 0.04-0.36 H (BEAKER) (test code = 416) BASOPHILS ABSOLUTE COUNT (BEAKER) 0.03 K/ L 0.01-0.08 (test code = 417) IMMATURE GRANULOCYTES-RELATIVE 0 % 0-1 PERCENT (BEAKER) (test code = 2801) POCT-GLUCOSE [id number] 10:28:00 Test Item Value Reference Range Interpretation Comments POC-GLUCOSE METER 276 mg/dL 70-110 H TESTED AT [place] [id number] ([facility]) (test code = PAUL Tanner [facility] 1538) [address] POCT-GLUCOSE [id number] 05:53:00 Test Item Value Reference Range Interpretation Comments POC-GLUCOSE METER 379 mg/dL 70-110 H Notified Ciro Polanco MD/TESTED ([facility]) (test code = AT [place] [address] [address] 1538) [facility] 7703 0 POCT-GLUCOSE [id number] 21:20:00 Test Item Value Reference Range Interpretation Comments POC-GLUCOSE METER 139 mg/dL 70-110 H TESTED AT [place] [address] ([facility]) (test code = PAUL Tanner [facility] 1538) [address] POCT-GLUCOSE [id number] 19:14:00 Test Item Value Reference Range Interpretation Comments POC-GLUCOSE METER 302 mg/dL 70-110 H TESTED AT [place] [address] ([facility]) (test code = PAUL Tanner [facility] 1538) [address] CBC W/PLT COUNT & AUTO [id number] 15:49:00 Test Item Value Reference Range Interpretation Comments WHITE BLOOD CELL COUNT (BEAKER) 15.7 K/ L 3.5-10.5 H (test code = 775) RED BLOOD CELL COUNT (BEAKER) 4.36 M/ L 3.93-5.22 (test code = 761) HEMOGLOBIN (BEAKER) (test code = 11.8 GM/DL 11.2-15.7 410) HEMATOCRIT (BEAKER) (test code = 39.1 % 34.1-44.9 411) MEAN CORPUSCULAR VOLUME (BEAKER) 89.7 fL 79.4-94.8 (test code = 753) MEAN CORPUSCULAR HEMOGLOBIN 27.1 pg 25.6-32.2 (BEAKER) (test code = 751) MEAN CORPUSCULAR HEMOGLOBIN CONC 30.2 GM/DL 32.2-35.5 L (BEAKER) (test code = 752) RED CELL DISTRIBUTION WIDTH 18.0 % 11.7-14.4 H (BEAKER) (test code = 412) PLATELET COUNT (BEAKER) (test 378 K/CU MM 150-450 code = 756) MEAN PLATELET VOLUME (BEAKER) 11.5 fL 9.4-12.3 (test code = 754) NUCLEATED RED BLOOD CELLS 0 /100 WBC 0-0 (BEAKER) (test code = 413) (CELLAVISION MANUAL DIFF)2018-10-07 15:49:00 Test Item Value Reference Range Interpretation Comments NEUTROPHILS - REL 86 % (CELLAVISION)(BEAKER) (test code = 2816) LYMPHOCYTES - REL 9 % (CELLAVISION)(BEAKER) (test code = 2817) MONOCYTES - REL 2 % (CELLAVISION)(BEAKER) (test code = 2818) BANDS - REL (CELLAVISION)(BEAKER) 1 % 0-10 (test code = 2826) NEUTROPHILS - ABS 13.50 K/ul 1.56-6.13 H (CELLAVISION)(BEAKER) (test code = 2830) LYMPHOCYTES - ABS 1.41 K/ul 1.18-3.74 (CELLAVISION)(BEAKER) (test code = 2831) MONOCYTES - ABS 0.31 K/uL 0.24-0.36 (CELLAVISION)(BEAKER) (test code = 2832) BANDS - ABS (CELLAVISION)(BEAKER) 0.16 K/uL 0.00-0.80 (test code = 2840) TOTAL COUNTED (BEAKER) (test code 100 = 1351) GIANT PLATELETS (BEAKER) (test Present code = 313) VACUOLATED NEUTROPHILS (BEAKER) Present (test code = 483) PLASMACYTOID LYMPHS(BEAKER) (test Present code = 1677) ANISOCYTOSIS (BEAKER) (test code = 1+ few 961) MACROCYTES (BEAKER) (test code = 1+ few 964) ARTIFACT (CELLAVISION)(BEAKER) Present (test code = 3432) PLATELET CONCENTRATION Adequate (CELLAVISION)(BEAKER) (test code = 3438) Received comment: User comments: Slide comments:COMPREHENSIVE METABOLIC PANEL 2018-10-07 13:36:00 Test Item Value Reference Range Interpretation Comments TOTAL PROTEIN 7.5 gm/dL 6.0-8.3 (BEAKER) (test code = 770) ALBUMIN (BEAKER) 3.4 g/dL 3.5-5.0 L (test code = 1145) ALKALINE PHOSPHATASE 110 U/L 40-150 (BEAKER) (test code = 346) BILIRUBIN TOTAL 0.2 mg/dL 0.2-1.2 (BEAKER) (test code = 377) SODIUM (BEAKER) (test 138 meq/L 136-145 code = 381) POTASSIUM (BEAKER) 4.6 meq/L 3.5-5.1 (test code = 379) CHLORIDE (BEAKER) 94 meq/L 98-107 L (test code = 382) CO2 (BEAKER) (test 35 meq/L 22-29 H code = 355) BLOOD UREA NITROGEN 14 mg/dL 7-21 (BEAKER) (test code = 354) CREATININE (BEAKER) 0.73 mg/dL 0.57-1.25 (test code = 358) GLUCOSE RANDOM 139 mg/dL 70-105 H (BEAKER) (test code = 652) CALCIUM (BEAKER) 9.5 mg/dL 8.4-10.2 (test code = 697) AST (SGOT) (BEAKER) 20 U/L 5-34 (test code = 353) ALT (SGPT) (BEAKER) 36 U/L 6-55 (test code = 347) EGFR (BEAKER) (test 117 ESTIMATE D GFR IS code = 1092) mL/min/1.73 sq NOT ACCURA TE m CREATININE CLEARANCE IN PREDICTING GLOMERULAR FILTRATION RATE . ESTIMATED GFR I S NOT APPLICABLE FOR DIALYSIS PATIEN TS. POCT-GLUCOSE [id number] 12:28:00 Test Item Value Reference Range Interpretation Comments POC-GLUCOSE METER 132 mg/dL 70-110 H TESTED AT [place] [address] ([facility]) (test code = PAUL Tanner [facility] 1538) [address] POCT-GLUCOSE [id number] 07:46:00 Test Item Value Reference Range Interpretation Comments POC-GLUCOSE METER 405 mg/dL 70-110 HH Notified R Collin STAPLETON/TESTED ([facility]) (test code = AT [facility] 67 [place] 1538) [facility] 7703 0 POCT-GLUCOSE [id number] 02:08:00 Test Item Value Reference Range Interpretation Comments POC-GLUCOSE METER 112 mg/dL 70-110 H TESTED AT [place] [address] ([facility]) (test code = PAUL [place] 1538) [address] POCT-GLUCOSE [id number] 21:19:00 Test Item Value Reference Range Interpretation Comments POC-GLUCOSE METER 307 mg/dL 70-110 H Notified R Collin STAPLETON/TESTED (BEAKER) (test code = AT [facility] 6[address] [facility] 1455) [facility] 7703 0 COMPREHENSIVE METABOLIC [id number] 21:15:00 Test Item Value Reference Range Interpretation Comments TOTAL PROTEIN 6.1 gm/dL 6.0-8.3 (BEAKER) (test code = 770) ALBUMIN (BEAKER) 2.9 g/dL 3.5-5.0 L (test code = 1145) ALKALINE PHOSPHATASE 88 U/L 40-150 (BEAKER) (test code = 346) BILIRUBIN TOTAL 0.1 mg/dL 0.2-1.2 L (BEAKER) (test code = 377) SODIUM (BEAKER) (test 137 meq/L 136-145 code = 381) POTASSIUM (BEAKER) 4.1 meq/L 3.5-5.1 (test code = 379) CHLORIDE (BEAKER) 97 meq/L 98-107 L (test code = 382) CO2 (BEAKER) (test 30 meq/L 22-29 H code = 355) BLOOD UREA NITROGEN 13 mg/dL 7-21 (BEAKER) (test code = 354) CREATININE (BEAKER) 0.84 mg/dL 0.57-1.25 (test code = 358) GLUCOSE RANDOM 357 mg/dL 70-105 H (BEAKER) (test code = 652) CALCIUM (BEAKER) 8.4 mg/dL 8.4-10.2 (test code = 697) AST (SGOT) (BEAKER) 17 U/L 5-34 (test code = 353) ALT (SGPT) (BEAKER) 35 U/L 6-55 (test code = 347) EGFR (BEAKER) (test 99 mL/min/1.73 ESTIMA MAGDALENO GFR IS code = 1092) sq m NOT ACCURATE CREATININE CLEARANCE IN PREDICTING GLOMERULAR FILTRATION RATE . ESTIMATED GFR I S NOT APPLICABLE FOR DIALYSIS PATIEN TS. CBC W/PLT COUNT & AUTO [id number] 20:58:00 Test Item Value Reference Range Interpretation Comments WHITE BLOOD CELL COUNT (BEAKER) 17.1 K/ L 3.5-10.5 H (test code = 775) RED BLOOD CELL COUNT (BEAKER) 3.64 M/ L 3.93-5.22 L (test code = 761) HEMOGLOBIN (BEAKER) (test code = 9.7 GM/DL 11.2-15.7 L 410) HEMATOCRIT (BEAKER) (test code = 33.0 % 34.1-44.9 L 411) MEAN CORPUSCULAR VOLUME (BEAKER) 90.7 fL 79.4-94.8 (test code = 753) MEAN CORPUSCULAR HEMOGLOBIN 26.6 pg 25.6-32.2 (BEAKER) (test code = 751) MEAN CORPUSCULAR HEMOGLOBIN CONC 29.4 GM/DL 32.2-35.5 L (BEAKER) (test code = 752) RED CELL DISTRIBUTION WIDTH 18.0 % 11.7-14.4 H (BEAKER) (test code = 412) PLATELET COUNT (BEAKER) (test 326 K/CU MM 150-450 code = 756) MEAN PLATELET VOLUME (BEAKER) 11.7 fL 9.4-12.3 (test code = 754) NUCLEATED RED BLOOD CELLS 0 /100 WBC 0-0 (BEAKER) (test code = 413) NEUTROPHILS RELATIVE PERCENT 89 % (BEAKER) (test code = 429) LYMPHOCYTES RELATIVE PERCENT 7 % (BEAKER) (test code = 430) MONOCYTES RELATIVE PERCENT 4 % (BEAKER) (test code = 431) EOSINOPHILS RELATIVE PERCENT 0 % (BEAKER) (test code = 432) BASOPHILS RELATIVE PERCENT 0 % (BEAKER) (test code = 437) NEUTROPHILS ABSOLUTE COUNT 15.12 K/ L 1.56-6.13 H (BEAKER) (test code = 670) LYMPHOCYTES ABSOLUTE COUNT 1.14 K/ L 1.18-3.74 L (BEAKER) (test code = 414) MONOCYTES ABSOLUTE COUNT (BEAKER) 0.67 K/ L 0.24-0.36 H (test code = 415) EOSINOPHILS ABSOLUTE COUNT 0.02 K/ L 0.04-0.36 L (BEAKER) (test code = 416) BASOPHILS ABSOLUTE COUNT (BEAKER) 0.02 K/ L 0.01-0.08 (test code = 417) IMMATURE GRANULOCYTES-RELATIVE 1 % 0-1 PERCENT (BEAKER) (test code = 2801) POCT-GLUCOSE [id number] 17:49:00 Test Item Value Reference Range Interpretation Comments POC-GLUCOSE METER 272 mg/dL 70-110 H TESTED AT [place] [address] ([facility]) (test code = PAUL Tanner [facility] 1538) [address] POCT-GLUCOSE [id number] 13:51:00 Test Item Value Reference Range Interpretation Comments POC-GLUCOSE METER 399 mg/dL 70-110 H TESTED AT [place] [address] ([facility]) (test code = PAUL Tanner [facility] 1538) [address] POCT-GLUCOSE [id number] 12:53:00 Test Item Value Reference Range Interpretation Comments POC-GLUCOSE METER 182 mg/dL 70-110 H TESTED AT [place] [address] ([facility]) (test code = PAUL Tanner [facility] 1538) [address] POCT-GLUCOSE [id number] 08:27:00 Test Item Value Reference Range Interpretation Comments POC-GLUCOSE METER 201 mg/dL 70-110 H TESTED AT [place] [address] ([facility]) (test code = PAUL Tanner [place] [address]) [address] BLOOD [id number] 23:01:00 Test Item Value Reference Range Interpretation Comments CULTURE ([facility]) (test No growth in 5 days code = 1095) POCT-GLUCOSE [id number] 21:41:00 Test Item Value Reference Range Interpretation Comments POC-GLUCOSE METER 327 mg/dL 70-110 H Notified R Collin STAPLETON/TESTED ([facility]) (test code = AT [place] [address]) [facility] 7703 0 POCT-GLUCOSE [id number] 16:57:00 Test Item Value Reference Range Interpretation Comments POC-GLUCOSE METER 197 mg/dL 70-110 H TESTED AT [place] [address] ([facility]) (test code = PAUL Tanner [place] [address]) [address] POCT-GLUCOSE [id number] 13:01:00 Test Item Value Reference Range Interpretation Comments POC-GLUCOSE METER 311 mg/dL 70-110 H Notified R Collin STAPLETON/TESTED ([facility]) (test code = AT [place] [address]) [facility] 7703 0 POCT-GLUCOSE [id number] 12:11:00 Test Item Value Reference Range Interpretation Comments POC-GLUCOSE METER 54 mg/dL 70-110 L Notified R Collin STAPLETON/TESTED AT ([facility]) (test code = [place] [address]) [facility] 7703 0 POCT-GLUCOSE [id number] 08:52:00 Test Item Value Reference Range Interpretation Comments POC-GLUCOSE METER 165 mg/dL 70-110 H TESTED AT [place] [id number] (BEAKER) (test code = PAUL Tanner [facility] 1538) [address] CBC W/PLT COUNT & AUTO [id number] 06:47:00 Test Item Value Reference Range Interpretation Comments WHITE BLOOD CELL COUNT (BEAKER) 20.1 K/ L 3.5-10.5 H (test code = 775) RED BLOOD CELL COUNT (BEAKER) 4.08 M/ L 3.93-5.22 (test code = 761) HEMOGLOBIN (BEAKER) (test code = 10.9 GM/DL 11.2-15.7 L 410) HEMATOCRIT (BEAKER) (test code = 36.2 % 34.1-44.9 411) MEAN CORPUSCULAR VOLUME (BEAKER) 88.7 fL 79.4-94.8 (test code = 753) MEAN CORPUSCULAR HEMOGLOBIN 26.7 pg 25.6-32.2 (BEAKER) (test code = 751) MEAN CORPUSCULAR HEMOGLOBIN CONC 30.1 GM/DL 32.2-35.5 L (BEAKER) (test code = 752) RED CELL DISTRIBUTION WIDTH 17.9 % 11.7-14.4 H (BEAKER) (test code = 412) PLATELET COUNT (BEAKER) (test 348 K/CU MM 150-450 code = 756) MEAN PLATELET VOLUME (BEAKER) 12.1 fL 9.4-12.3 (test code = 754) NUCLEATED RED BLOOD CELLS 0 /100 WBC 0-0 (BEAKER) (test code = 413) (CELLAVISION MANUAL DIFF)2018-10-05 06:47:00 Test Item Value Reference Range Interpretation Comments NEUTROPHILS - REL 77 % (CELLAVISION)(BEAKER) (test code = 2816) LYMPHOCYTES - REL 15 % (CELLAVISION)(BEAKER) (test code = 2817) MONOCYTES - REL 5 % (CELLAVISION)(BEAKER) (test code = 2818) EOSINOPHILS - REL 1 % (CELLAVISION)(BEAKER) (test code = 2819) BANDS - REL (CELLAVISION)(BEAKER) 1 % 0-10 (test code = 2826) ATYPICAL LYMPHOCYTES - REL 1 % 0-0 H (CELLAVISION)(BEAKER) (test code = 2829) NEUTROPHILS - ABS 15.48 K/ul 1.56-6.13 H (CELLAVISION)(BEAKER) (test code = 2830) LYMPHOCYTES - ABS 3.02 K/ul 1.18-3.74 (CELLAVISION)(BEAKER) (test code = 2831) MONOCYTES - ABS 1.01 K/uL 0.24-0.36 H (CELLAVISION)(BEAKER) (test code = 2832) EOSINOPHILS - ABS 0.20 K/uL 0.04-0.36 (CELLAVISION)(BEAKER) (test code = 2834) BANDS - ABS (CELLAVISION)(BEAKER) 0.20 K/uL 0.00-0.80 (test code = 2840) ATYPICAL LYMPHOCYTES - ABS 0.20 K/uL 0.00-0.00 H (CELLAVISION)(BEAKER) (test code = 2858) TOTAL COUNTED (BEAKER) (test code 100 = 1351) WBC MORPHOLOGY (BEAKER) (test code Normal = 487) PLT MORPHOLOGY (BEAKER) (test code Normal = 486) POLYCHROMATOPHILLIC RBCS(BEAKER) 1+ few (test code = 478) HYPOCHROMIA (BEAKER) (test code = 1+ few 963) ANISOCYTOSIS (BEAKER) (test code = 1+ few 961) MACROCYTES (BEAKER) (test code = 1+ few 964) ARTIFACT (CELLAVISION)(BEAKER) Present (test code = 3432) PLATELET CONCENTRATION Adequate (CELLAVISION)(BEAKER) (test code = 3438) Received comment: User comments: Slide comments:COMPREHENSIVE METABOLIC PANEL 2018-10-05 04:58:00 Test Item Value Reference Range Interpretation Comments TOTAL PROTEIN 7.4 gm/dL 6.0-8.3 (BEAKER) (test code = 770) ALBUMIN (BEAKER) 3.5 g/dL 3.5-5.0 (test code = 1145) ALKALINE PHOSPHATASE 119 U/L 40-150 (BEAKER) (test code = 346) BILIRUBIN TOTAL 0.1 mg/dL 0.2-1.2 L (BEAKER) (test code = 377) SODIUM (BEAKER) (test 138 meq/L 136-145 code = 381) POTASSIUM (BEAKER) 3.9 meq/L 3.5-5.1 (test code = 379) CHLORIDE (BEAKER) 95 meq/L 98-107 L (test code = 382) CO2 (BEAKER) (test 31 meq/L 22-29 H code = 355) BLOOD UREA NITROGEN 26 mg/dL 7-21 H (BEAKER) (test code = 354) CREATININE (BEAKER) 0.75 mg/dL 0.57-1.25 (test code = 358) GLUCOSE RANDOM 98 mg/dL 70-105 (BEAKER) (test code = 652) CALCIUM (BEAKER) 9.5 mg/dL 8.4-10.2 (test code = 697) AST (SGOT) (BEAKER) 25 U/L 5-34 (test code = 353) ALT (SGPT) (BEAKER) 58 U/L 6-55 H (test code = 347) EGFR (BEAKER) (test 113 ESTIMATE D GFR IS code = 1092) mL/min/1.73 sq NOT ACCURA TE m CREATININE CLEARANCE IN PREDICTING GLOMERULAR FILTRATION RATE . ESTIMATED GFR I S NOT APPLICABLE FOR DIALYSIS PATIEN TS. POCT-GLUCOSE [id number] 23:13:00 Test Item Value Reference Range Interpretation Comments POC-GLUCOSE METER 210 mg/dL 70-[address] [facility] 67 ([facility]) (test code = PAUL [place] 1538) [address] BLOOD [id number] 23:01:00 Test Item Value Reference Range Interpretation Comments CULTURE (BEAKER) (test No growth in 5 days code = 1095) POCT-GLUCOSE [id number] 18:25:00 Test Item Value Reference Range Interpretation Comments POC-GLUCOSE METER 186 mg/dL 70-[address] [facility] 6720 ([facility]) (test code = [place] 1538) [id number] FUNGUS CULTURE + [id number] 14:17:00 Test Item Value Reference Range Interpretation Comments CULTURE (BEAKER) A 1+ Clau (test code = 1095) lisa frank FUNGUS SMEAR No fungi seen ([facility]) (test code = 1406) POCT-GLUCOSE [id number] 12:24:00 Test Item Value Reference Range Interpretation Comments POC-GLUCOSE METER 183 mg/dL 70-[address] [facility] 67[address] ([facility]) (test code = [place] 1538) [id number] POCT-GLUCOSE [id number] 09:13:00 Test Item Value Reference Range Interpretation Comments POC-GLUCOSE METER 81 mg/dL 70-[address] [facility] 67[address] ([facility]) (test code = [place] [address] 1538) SPUTUM CULTURE + GRAM [id number] 09:05:00 Test Item Value Reference Range Interpretation Comments CULTURE ([facility]) PSEUDOMONAS A 1+ Pseudomo viki (test code = 1095) AERUGINOSA aeruginos a Amikacin (test code Susceptible 0-16 S = 1) , Resistant <0 or >16 Aztreonam (test Susceptible 0-8 , S code = 32) Resistant <0 or >8 Cefepime (test code Susceptible 0-8 , S = 51) Resistant <0 or >8 Ceftazidime (test Susceptible 0-8 , S code = 27) Resistant <0 or >8 Ciprofloxacin (test Susceptible 0-1 , S code = 7) Resistant <0 or >1 Gentamicin (test Susceptible 0-4 , R code = 18) Resistant <0 or >4 Imipenem (test code Susceptible 0-2 , R = 19) Resistant <0 or >2 Levofloxacin (test Susceptible 0-2 , S code = 22) Resistant <0 or >2 Piperacillin (test Susceptible 0-16 R code = 24) , Resistant <0 or >16 Piperacillin + Susceptible 0-16 S Tazobactam (test , Resistant <0 or code = 29) >16 Tobramycin (test Susceptible 0-4 , S code = 25) Resistant <0 or >4 CULTURE ([facility]) PSEUDOMONAS A 1+ Pseudomo viki (test code = 1095) AERUGINOSA aeruginos a (MUCOID-PHENOTYPE (Mucoid-ph enotype ) ) Amikacin (test code Susceptible 0-16 S = 1) , Resistant <0 or >16 Aztreonam (test Susceptible 0-8 , S code = 32) Resistant <0 or >8 Cefepime (test code Susceptible 0-8 , S = 51) Resistant <0 or >8 Ceftazidime (test Susceptible 0-8 , S code = 27) Resistant <0 or >8 Ciprofloxacin (test Susceptible 0-1 , S code = 7) Resistant <0 or >1 Gentamicin (test Susceptible 0-4 , S code = 18) Resistant <0 or >4 Imipenem (test code Susceptible 0-2 , R = 19) Resistant <0 or >2 Levofloxacin (test Susceptible 0-2 , S code = 22) Resistant <0 or >2 Meropenem (test Susceptible 0-2 , S code = 34) Resistant <0 or >2 Piperacillin (test Susceptible 0-16 S code = 24) , Resistant <0 or >16 Piperacillin + Susceptible 0-16 S Tazobactam (test , Resistant <0 or code = 29) >16 Tobramycin (test Susceptible 0-4 , S code = 25) Resistant <0 or >4 1+ Normal respiratory derick presentPOCT-GLUCOSE [id number] 06:29:00 Test Item Value Reference Range Interpretation Comments POC-GLUCOSE METER 291 mg/dL 70-[address] [facility] 67[address] ([facility]) (test code = [place] [facility] 1538) [id number] COMPREHENSIVE METABOLIC [id number] 06:00:00 Test Item Value Reference Range Interpretation Comments TOTAL PROTEIN 6.2 gm/dL 6.0-8.3 (AKER) (test code = 770) ALBUMIN (BEAKER) 3.0 g/dL 3.5-5.0 L (test code = 1145) ALKALINE PHOSPHATASE 93 U/L 40-150 (AKER) (test code = 346) BILIRUBIN TOTAL 0.1 mg/dL 0.2-1.2 L (AKER) (test code = 377) SODIUM (BEAKER) (test 136 meq/L 136-145 code = 381) POTASSIUM (BEAKER) 4.2 meq/L 3.5-5.1 (test code = 379) CHLORIDE (BEAKER) 96 meq/L 98-107 L (test code = 382) CO2 (BEAKER) (test 31 meq/L 22-29 H code = 355) BLOOD UREA NITROGEN 19 mg/dL 7-21 (AKER) (test code = 354) CREATININE (BEAKER) 0.71 mg/dL 0.57-1.25 (test code = 358) GLUCOSE RANDOM 297 mg/dL 70-105 H (BEAKER) (test code = 652) CALCIUM (BEAKER) 8.6 mg/dL 8.4-10.2 (test code = 697) AST (SGOT) (BEAKER) 30 U/L 5-34 (test code = 353) ALT (SGPT) (BEAKER) 60 U/L 6-55 H (test code = 347) EGFR (BEAKER) (test 121 ESTIMATE D GFR IS code = 1092) mL/min/1.73 sq NOT ACCURA TE m CREATININE CLEARANCE IN PREDICTING GLOMERULAR FILTRATION RATE . ESTIMATED GFR I S NOT APPLICABLE FOR DIALYSIS PATIEN TS. CBC W/PLT COUNT & AUTO [id number] 05:35:00 Test Item Value Reference Range Interpretation Comments WHITE BLOOD CELL COUNT (BEAKER) 17.7 K/ L 3.5-10.5 H (test code = 775) RED BLOOD CELL COUNT (BEAKER) 3.46 M/ L 3.93-5.22 L (test code = 761) HEMOGLOBIN (BEAKER) (test code = 9.4 GM/DL 11.2-15.7 L 410) HEMATOCRIT (BEAKER) (test code = 31.4 % 34.1-44.9 L 411) MEAN CORPUSCULAR VOLUME (BEAKER) 90.8 fL 79.4-94.8 (test code = 753) MEAN CORPUSCULAR HEMOGLOBIN 27.2 pg 25.6-32.2 (BEAKER) (test code = 751) MEAN CORPUSCULAR HEMOGLOBIN CONC 29.9 GM/DL 32.2-35.5 L (BEAKER) (test code = 752) RED CELL DISTRIBUTION WIDTH 17.4 % 11.7-14.4 H (BEAKER) (test code = 412) PLATELET COUNT (BEAKER) (test 281 K/CU MM 150-450 code = 756) MEAN PLATELET VOLUME (BEAKER) 12.8 fL 9.4-12.3 H (test code = 754) NUCLEATED RED BLOOD CELLS 0 /100 WBC 0-0 (BEAKER) (test code = 413) NEUTROPHILS RELATIVE PERCENT 85 % (BEAKER) (test code = 429) LYMPHOCYTES RELATIVE PERCENT 7 % (BEAKER) (test code = 430) MONOCYTES RELATIVE PERCENT 7 % (BEAKER) (test code = 431) EOSINOPHILS RELATIVE PERCENT 0 % (BEAKER) (test code = 432) BASOPHILS RELATIVE PERCENT 0 % (BEAKER) (test code = 437) NEUTROPHILS ABSOLUTE COUNT 15.07 K/ L 1.56-6.13 H (BEAKER) (test code = 670) LYMPHOCYTES ABSOLUTE COUNT 1.20 K/ L 1.18-3.74 (BEAKER) (test code = 414) MONOCYTES ABSOLUTE COUNT (BEAKER) 1.17 K/ L 0.24-0.36 H (test code = 415) EOSINOPHILS ABSOLUTE COUNT 0.05 K/ L 0.04-0.36 (BEAKER) (test code = 416) BASOPHILS ABSOLUTE COUNT (BEAKER) 0.03 K/ L 0.01-0.08 (test code = 417) IMMATURE GRANULOCYTES-RELATIVE 1 % 0-1 PERCENT ([facility]) (test code = 2801) POCT-GLUCOSE [id number] 05:34:00 Test Item Value Reference Range Interpretation Comments POC-GLUCOSE METER 207 mg/dL 70-110 H TESTED AT [place] [address] ([facility]) (test code = PAUL Tanner [facility] 1538) [address] POCT-GLUCOSE [id number] 21:35:00 Test Item Value Reference Range Interpretation Comments POC-GLUCOSE METER 500 mg/dL 70-110 HH Notified R Collin STAPLETON/TESTED ([facility]) (test code = AT [place] [address]) [facility] 7[address] 0 POCT-GLUCOSE [id number] 18:12:00 Test Item Value Reference Range Interpretation Comments POC-GLUCOSE METER 433 mg/dL 70-110 HH TESTED AT [place] [address] ([facility]) (test code = PAUL Tanner [facility] 1538) [address] POCT-GLUCOSE [id number] 14:05:00 Test Item Value Reference Range Interpretation Comments POC-GLUCOSE METER 298 mg/dL 70-110 H TESTED AT [place] [address] ([facility]) (test code = PAUL Tanner [facility] 1538) [address] POCT-GLUCOSE [id number] 08:34:00 Test Item Value Reference Range Interpretation Comments POC-GLUCOSE METER 171 mg/dL 70-110 H TESTED AT [place] [address] ([facility]) (test code = PAUL Tanner [facility] 1538) [address] COMPREHENSIVE METABOLIC [id number] 05:54:00 Test Item Value Reference Range Interpretation Comments TOTAL PROTEIN 6.1 gm/dL 6.0-8.3 (BEAKER) (test code = 770) ALBUMIN (BEAKER) 2.9 g/dL 3.5-5.0 L (test code = 1145) ALKALINE PHOSPHATASE 92 U/L 40-150 (BEAKER) (test code = 346) BILIRUBIN TOTAL 0.1 mg/dL 0.2-1.2 L (BEAKER) (test code = 377) SODIUM (BEAKER) (test 135 meq/L 136-145 L code = 381) POTASSIUM (BEAKER) 4.5 meq/L 3.5-5.1 (test code = 379) CHLORIDE (BEAKER) 92 meq/L 98-107 L (test code = 382) CO2 (BEAKER) (test 36 meq/L 22-29 H code = 355) BLOOD UREA NITROGEN 16 mg/dL 7-21 (BEAKER) (test code = 354) CREATININE (BEAKER) 0.77 mg/dL 0.57-1.25 (test code = 358) GLUCOSE RANDOM 497 mg/dL 70-105 HH (BEAKER) (test code = 652) CALCIUM (BEAKER) 9.0 mg/dL 8.4-10.2 (test code = 697) AST (SGOT) (BEAKER) 32 U/L 5-34 (test code = 353) ALT (SGPT) (BEAKER) 68 U/L 6-55 H (test code = 347) EGFR (BEAKER) (test 110 ESTIMATE D GFR IS code = 1092) mL/min/1.73 sq NOT ACCURA TE m CREATININE CLEARANCE IN PREDICTING GLOMERULAR FILTRATION RATE . ESTIMATED GFR I S NOT APPLICABLE FOR DIALYSIS PATIEN TS. [id number] 05:41:00 Test Item Value Reference Range Interpretation Comments POTASSIUM (BEAKER) (test code = 4.5 meq/L 3.5-5.1 379) POCT-GLUCOSE [id number] 05:24:00 Test Item Value Reference Range Interpretation Comments POC-GLUCOSE METER 415 mg/dL 70-110 HH Notified R Collin MD/TESTED (BEAKER) (test code = AT [facility] 6779 [facility] 5768) [place] 7703 0 CBC W/PLT COUNT & AUTO [id number] 05:20:00 Test Item Value Reference Range Interpretation Comments WHITE BLOOD CELL COUNT (BEAKER) 12.9 K/ L 3.5-10.5 H (test code = 775) RED BLOOD CELL COUNT (BEAKER) 3.63 M/ L 3.93-5.22 L (test code = 761) HEMOGLOBIN (BEAKER) (test code = 9.7 GM/DL 11.2-15.7 L 410) HEMATOCRIT (BEAKER) (test code = 32.2 % 34.1-44.9 L 411) MEAN CORPUSCULAR VOLUME (BEAKER) 88.7 fL 79.4-94.8 (test code = 753) MEAN CORPUSCULAR HEMOGLOBIN 26.7 pg 25.6-32.2 (BEAKER) (test code = 751) MEAN CORPUSCULAR HEMOGLOBIN CONC 30.1 GM/DL 32.2-35.5 L (BEAKER) (test code = 752) RED CELL DISTRIBUTION WIDTH 17.1 % 11.7-14.4 H (BEAKER) (test code = 412) PLATELET COUNT (BEAKER) (test 305 K/CU MM 150-450 code = 756) MEAN PLATELET VOLUME (BEAKER) 12.0 fL 9.4-12.3 (test code = 754) NUCLEATED RED BLOOD CELLS 0 /100 WBC 0-0 (BEAKER) (test code = 413) NEUTROPHILS RELATIVE PERCENT 77 % (BEAKER) (test code = 429) LYMPHOCYTES RELATIVE PERCENT 12 % (BEAKER) (test code = 430) MONOCYTES RELATIVE PERCENT 10 % (BEAKER) (test code = 431) EOSINOPHILS RELATIVE PERCENT 1 % (BEAKER) (test code = 432) BASOPHILS RELATIVE PERCENT 0 % (BEAKER) (test code = 437) NEUTROPHILS ABSOLUTE COUNT 9.87 K/ L 1.56-6.13 H (BEAKER) (test code = 670) LYMPHOCYTES ABSOLUTE COUNT 1.50 K/ L 1.18-3.74 (BEAKER) (test code = 414) MONOCYTES ABSOLUTE COUNT (BEAKER) 1.24 K/ L 0.24-0.36 H (test code = 415) EOSINOPHILS ABSOLUTE COUNT 0.12 K/ L 0.04-0.36 (BEAKER) (test code = 416) BASOPHILS ABSOLUTE COUNT (BEAKER) 0.02 K/ L 0.01-0.08 (test code = 417) IMMATURE GRANULOCYTES-RELATIVE 1 % 0-1 PERCENT ([facility]) (test code = 2801) LACTIC ACID, VENOUS, WHOLE [id number] 05:18:00 Test Item Value Reference Range Interpretation Comments LACTATE BLOOD VENOUS (2) ([facility]) 2.1 mmol/L 0.5-2.2 (test code = 2872) [id number] 05:15:00 Test Item Value Reference Range Interpretation Comments POTASSIUM ([facility]) (test code = 4.5 meq/L 3.5-5.1 379) POCT-GLUCOSE [id number] 02:55:00 Test Item Value Reference Range Interpretation Comments POC-GLUCOSE METER 464 mg/dL 70-110 HH Notified R Collin STAPLETON/TESTED ([facility]) (test code = AT [place] [address]) [facility] 7703 0 POCT-GLUCOSE [id number] 21:44:00 Test Item Value Reference Range Interpretation Comments POC-GLUCOSE METER 324 mg/dL 70-110 H Notified R Collin MD/TESTED ([facility]) (test code = AT [place] [address]) [facility] 7703 0 POCT-GLUCOSE [id number] 18:33:00 Test Item Value Reference Range Interpretation Comments POC-GLUCOSE METER 272 mg/dL 70-110 H TESTED AT [place] [address] ([facility]) (test code = PAUL Tanner [place] [address]) [address] POCT-GLUCOSE [id number] 17:27:00 Test Item Value Reference Range Interpretation Comments POC-GLUCOSE METER 354 mg/dL 70-110 H Notified Ciro Polanco MD/TESTED ([facility]) (test code = AT [place] [address]) [facility] 7703 0 POCT-GLUCOSE [id number] 12:14:00 Test Item Value Reference Range Interpretation Comments POC-GLUCOSE METER 178 mg/dL 70-110 H TESTED AT [place] [address] ([facility]) (test code = PAUL Tanner [place] [address]) [address] POCT-GLUCOSE [id number] 08:20:00 Test Item Value Reference Range Interpretation Comments POC-GLUCOSE METER 211 mg/dL 70-110 H TESTED AT [place] [address] ([facility]) (test code = PAUL Tanner [place] [address]) [address] COMPREHENSIVE METABOLIC [id number] 06:42:00 Test Item Value Reference Range Interpretation Comments TOTAL PROTEIN 6.1 gm/dL 6.0-8.3 (BEAKER) (test code = 770) ALBUMIN (BEAKER) 2.9 g/dL 3.5-5.0 L (test code = 1145) ALKALINE PHOSPHATASE 88 U/L 40-150 (BEAKER) (test code = 346) BILIRUBIN TOTAL 0.1 mg/dL 0.2-1.2 L (BEAKER) (test code = 377) SODIUM (BEAKER) (test 137 meq/L 136-145 code = 381) POTASSIUM (BEAKER) 5.0 meq/L 3.5-5.1 (test code = 379) CHLORIDE (BEAKER) 95 meq/L 98-107 L (test code = 382) CO2 (BEAKER) (test 35 meq/L 22-29 H code = 355) BLOOD UREA NITROGEN 23 mg/dL 7-21 H (BEAKER) (test code = 354) CREATININE (BEAKER) 0.67 mg/dL 0.57-1.25 (test code = 358) GLUCOSE RANDOM 210 mg/dL 70-105 H (BEAKER) (test code = 652) CALCIUM (BEAKER) 8.8 mg/dL 8.4-10.2 (test code = 697) AST (SGOT) (BEAKER) 51 U/L 5-34 H (test code = 353) ALT (SGPT) (BEAKER) 74 U/L 6-55 H (test code = 347) EGFR (BEAKER) (test 129 ESTIMATE D GFR IS code = 1092) mL/min/1.73 sq NOT ACCURA TE m CREATININE CLEARANCE IN PREDICTING GLOMERULAR FILTRATION RATE . ESTIMATED GFR I S NOT APPLICABLE FOR DIALYSIS PATIEN TS. POCT-GLUCOSE [id number] 06:39:00 Test Item Value Reference Range Interpretation Comments POC-GLUCOSE METER 224 mg/dL 70-[address] [facility] 6720 ([facility]) (test code = [place] 1538) [address] CBC W/PLT COUNT & AUTO [id number] 06:31:00 Test Item Value Reference Range Interpretation Comments WHITE BLOOD CELL COUNT (BEAKER) 12.7 K/ L 3.5-10.5 H (test code = 775) RED BLOOD CELL COUNT (BEAKER) 3.58 M/ L 3.93-5.22 L (test code = 761) HEMOGLOBIN (BEAKER) (test code = 9.7 GM/DL 11.2-15.7 L 410) HEMATOCRIT (BEAKER) (test code = 31.8 % 34.1-44.9 L 411) MEAN CORPUSCULAR VOLUME (BEAKER) 88.8 fL 79.4-94.8 (test code = 753) MEAN CORPUSCULAR HEMOGLOBIN 27.1 pg 25.6-32.2 (BEAKER) (test code = 751) MEAN CORPUSCULAR HEMOGLOBIN CONC 30.5 GM/DL 32.2-35.5 L (BEAKER) (test code = 752) RED CELL DISTRIBUTION WIDTH 16.4 % 11.7-14.4 H (BEAKER) (test code = 412) PLATELET COUNT (BEAKER) (test 258 K/CU MM 150-450 code = 756) MEAN PLATELET VOLUME (BEAKER) 11.5 fL 9.4-12.3 (test code = 754) NUCLEATED RED BLOOD CELLS 0 /100 WBC 0-0 (BEAKER) (test code = 413) NEUTROPHILS RELATIVE PERCENT 72 % (BEAKER) (test code = 429) LYMPHOCYTES RELATIVE PERCENT 15 % (BEAKER) (test code = 430) MONOCYTES RELATIVE PERCENT 9 % (BEAKER) (test code = 431) EOSINOPHILS RELATIVE PERCENT 3 % (BEAKER) (test code = 432) BASOPHILS RELATIVE PERCENT 0 % (BEAKER) (test code = 437) NEUTROPHILS ABSOLUTE COUNT 9.17 K/ L 1.56-6.13 H (BEAKER) (test code = 670) LYMPHOCYTES ABSOLUTE COUNT 1.96 K/ L 1.18-3.74 (BEAKER) (test code = 414) MONOCYTES ABSOLUTE COUNT (BEAKER) 1.12 K/ L 0.24-0.36 H (test code = 415) EOSINOPHILS ABSOLUTE COUNT 0.32 K/ L 0.04-0.36 (BEAKER) (test code = 416) BASOPHILS ABSOLUTE COUNT (BEAKER) 0.02 K/ L 0.01-0.08 (test code = 417) IMMATURE GRANULOCYTES-RELATIVE 1 % 0-1 PERCENT (BEAKER) (test code = 2801) POCT-GLUCOSE [id number] 02:22:00 Test Item Value Reference Range Interpretation Comments POC-GLUCOSE METER 354 mg/dL 70-110 H TESTED AT [place] [address] ([facility]) (test code = PAUL Tanner [place] 1538) [address] POCT-GLUCOSE [id number] 22:38:00 Test Item Value Reference Range Interpretation Comments POC-GLUCOSE METER 224 mg/dL 70-110 H TESTED AT [place] [address] ([facility]) (test code = PAUL Tanner [place] 1538) [address] POCT-GLUCOSE [id number] 21:24:00 Test Item Value Reference Range Interpretation Comments POC-GLUCOSE METER 349 mg/dL 70-110 H TESTED AT [place] [address] ([facility]) (test code = PAUL Tanner [place] 1538) [address] POCT-GLUCOSE [id number] 18:45:00 Test Item Value Reference Range Interpretation Comments POC-GLUCOSE METER 264 mg/dL 70-110 H TESTED AT [place] [address] ([facility]) (test code = PAUL Tanner [place] 1538) [address] POCT-GLUCOSE [id number] 15:48:00 Test Item Value Reference Range Interpretation Comments POC-GLUCOSE METER 191 mg/dL 70-110 H TESTED AT [place] [address] ([facility]) (test code = PAUL Tanner [place] 1538) [address] POCT-GLUCOSE [id number] 15:17:00 Test Item Value Reference Range Interpretation Comments POC-GLUCOSE METER 111 mg/dL 70-110 H TESTED AT [place] [address] ([facility]) (test code = APUL Tanner [place] 1538) [address] POCT-GLUCOSE [id number] 11:13:00 Test Item Value Reference Range Interpretation Comments POC-GLUCOSE METER 297 mg/dL 70-110 H TESTED AT [place] [address] ([facility]) (test code = PAUL Tanner [place] 1538) [address] POCT-GLUCOSE [id number] 08:10:00 Test Item Value Reference Range Interpretation Comments POC-GLUCOSE METER 221 mg/dL 70-110 H TESTED AT [place] [address] ([facility]) (test code = PAUL Tanner [place] 1538) [address] [id number] 05:11:00 Test Item Value Reference Range Interpretation Comments PHOSPHORUS ([facility]) (test code = 4.0 mg/dL 2.3-4.7 604) [id number] 05:11:00 Test Item Value Reference Range Interpretation Comments MAGNESIUM (BEAKER) (test code = 1.6 mg/dL 1.6-2.6 627) COMPREHENSIVE METABOLIC [id number] 05:11:00 Test Item Value Reference Range Interpretation Comments TOTAL PROTEIN 6.1 gm/dL 6.0-8.3 (BEAKER) (test code = 770) ALBUMIN (BEAKER) 2.9 g/dL 3.5-5.0 L (test code = 1145) ALKALINE PHOSPHATASE 87 U/L 40-150 (BEAKER) (test code = 346) BILIRUBIN TOTAL 0.1 mg/dL 0.2-1.2 L (BEAKER) (test code = 377) SODIUM (BEAKER) (test 140 meq/L 136-145 code = 381) POTASSIUM (BEAKER) 5.5 meq/L 3.5-5.1 H (test code = 379) CHLORIDE (BEAKER) 97 meq/L 98-107 L (test code = 382) CO2 (BEAKER) (test 35 meq/L 22-29 H code = 355) BLOOD UREA NITROGEN 27 mg/dL 7-21 H (BEAKER) (test code = 354) CREATININE (BEAKER) 0.72 mg/dL 0.57-1.25 (test code = 358) GLUCOSE RANDOM 219 mg/dL 70-105 H (BEAKER) (test code = 652) CALCIUM (BEAKER) 8.5 mg/dL 8.4-10.2 (test code = 697) AST (SGOT) (BEAKER) 80 U/L 5-34 H (test code = 353) ALT (SGPT) (BEAKER) 75 U/L 6-55 H (test code = 347) EGFR (BEAKER) (test 119 ESTIMATE D GFR IS code = 1092) mL/min/1.73 sq NOT ACCURA TE m CREATININE CLEARANCE IN PREDICTING GLOMERULAR FILTRATION RATE . ESTIMATED GFR I S NOT APPLICABLE FOR DIALYSIS PATIEN TS. CBC W/PLT COUNT & AUTO [id number] 04:57:00 Test Item Value Reference Range Interpretation Comments WHITE BLOOD CELL COUNT (BEAKER) 13.8 K/ L 3.5-10.5 H (test code = 775) RED BLOOD CELL COUNT (BEAKER) 3.77 M/ L 3.93-5.22 L (test code = 761) HEMOGLOBIN (BEAKER) (test code = 10.0 GM/DL 11.2-15.7 L 410) HEMATOCRIT (BEAKER) (test code = 33.7 % 34.1-44.9 L 411) MEAN CORPUSCULAR VOLUME (BEAKER) 89.4 fL 79.4-94.8 (test code = 753) MEAN CORPUSCULAR HEMOGLOBIN 26.5 pg 25.6-32.2 (BEAKER) (test code = 751) MEAN CORPUSCULAR HEMOGLOBIN CONC 29.7 GM/DL 32.2-35.5 L (BEAKER) (test code = 752) RED CELL DISTRIBUTION WIDTH 16.3 % 11.7-14.4 H (BEAKER) (test code = 412) PLATELET COUNT (BEAKER) (test 309 K/CU MM 150-450 code = 756) MEAN PLATELET VOLUME (BEAKER) 11.6 fL 9.4-12.3 (test code = 754) NUCLEATED RED BLOOD CELLS 0 /100 WBC 0-0 (BEAKER) (test code = 413) NEUTROPHILS RELATIVE PERCENT 72 % (BEAKER) (test code = 429) LYMPHOCYTES RELATIVE PERCENT 15 % (BEAKER) (test code = 430) MONOCYTES RELATIVE PERCENT 8 % (BEAKER) (test code = 431) EOSINOPHILS RELATIVE PERCENT 4 % (BEAKER) (test code = 432) BASOPHILS RELATIVE PERCENT 0 % (BEAKER) (test code = 437) NEUTROPHILS ABSOLUTE COUNT 9.92 K/ L 1.56-6.13 H (BEAKER) (test code = 670) LYMPHOCYTES ABSOLUTE COUNT 2.08 K/ L 1.18-3.74 (BEAKER) (test code = 414) MONOCYTES ABSOLUTE COUNT (BEAKER) 1.15 K/ L 0.24-0.36 H (test code = 415) EOSINOPHILS ABSOLUTE COUNT 0.49 K/ L 0.04-0.36 H (BEAKER) (test code = 416) BASOPHILS ABSOLUTE COUNT (BEAKER) 0.01 K/ L 0.01-0.08 (test code = 417) IMMATURE GRANULOCYTES-RELATIVE 1 % 0-1 PERCENT (BEAKER) (test code = 2801) [id number] 02:54:00 Test Item Value Reference Range Interpretation Comments PROCALCITONIN ([facility]) (test code 0.07 ng/mL <0.05 H = 3036) SEPSIS RISK (ng/mL)Low: 0.05-0.50Intermediate: 0.51-2.00High: >=2.01POCT-GLUCOSE [id number] 01:59:00 Test Item Value Reference Range Interpretation Comments POC-GLUCOSE METER 265 mg/dL 70-110 H TESTED AT [place] [address] ([facility]) [facility] 1538) [address] POCT-GLUCOSE [id number] 21:36:00 Test Item Value Reference Range Interpretation Comments POC-GLUCOSE METER 256 mg/dL 70-110 H TESTED AT [place] [address] ([facility]) (test code = [facility] Ciro [facility] 1538) [address] CT, BRAIN, WITHOUT [id number] 20:55:00FINAL REPORT CT, BRAIN, WITHOUT CONTRAST CLINICAL [...] No acute intracranial findings Signed: Rosa M Freitas Verified Date/Time: 09/30/2018 20:55:31 Reading Location: [address] Neuro Reading Room COMPREHENSIVE METABOLIC PANEL 2018-09-30 20:21:00 Test Item Value Reference Range Interpretation Comments TOTAL PROTEIN 6.6 gm/dL 6.0-8.3 (BEAKER) (test code = 770) ALBUMIN (BEAKER) 3.0 g/dL 3.5-5.0 L (test code = 1145) ALKALINE PHOSPHATASE 93 U/L 40-150 (AKER) (test code = 346) BILIRUBIN TOTAL 0.1 mg/dL 0.2-1.2 L (BEAKER) (test code = 377) SODIUM (BEAKER) (test 134 meq/L 136-145 L code = 381) POTASSIUM (BEAKER) 5.9 meq/L 3.5-5.1 H (test code = 379) CHLORIDE (BEAKER) 94 meq/L 98-107 L (test code = 382) CO2 (BEAKER) (test 29 meq/L 22-29 code = 355) BLOOD UREA NITROGEN 29 mg/dL 7-21 H (BEAKER) (test code = 354) CREATININE (BEAKER) 0.97 mg/dL 0.57-1.25 (test code = 358) GLUCOSE RANDOM 556 mg/dL 70-105 HH (BEAKER) (test code = 652) CALCIUM (BEAKER) 8.3 mg/dL 8.4-10.2 L (test code = 697) AST (SGOT) (BEAKER) 71 U/L 5-34 H (test code = 353) ALT (SGPT) (BEAKER) 71 U/L 6-55 H (test code = 347) EGFR (BEAKER) (test 84 mL/min/1.73 ESTIMA MAGDALENO GFR IS code = 1092) sq m NOT ACCURATE CREATININE CLEARANCE IN PREDICTING GLOMERULAR FILTRATION RATE . ESTIMATED GFR I S NOT APPLICABLE FOR DIALYSIS PATIEN TS. HCG, QUANTITATIVE, [id number] 18:38:00 Test Item Value Reference Range Interpretation Comments GONADOTROPIN, CHORIONIC (HCG) QUANT < mIU/mL 0-10 (BEAKER) (test code = 649) Non- Females: <10 mIU/mL Females: Gestation Age Reference Range(mIU/mL) 0.2-1 Week 5-50 1-2 Weeks 50-500 2-3 Weeks 100-5,000 3-4Weeks 500-10,000 4-5 Weeks 1,000-50,000 5-6 Weeks 10,000-100,000 6-8 Weeks 15,000-200,000 2-3 Months 10,000-100,000U/S, RENAL, COMPLETE 2018-09-30 17:21:00Reason for exam:->Hypertension, AKIShould this be performed at the bedside?->YesFINAL REPORT Renal ultrasound Clinical History: Hypertension, acute kidney injury Discussion:Sonographic evaluation of the kidneys is performed. The right kidney is normal in size measuring 10.0 x 4.2 x 4.5 cm with cortical thickness of 1.3 cm. Cortical echogenicity is within normal limits. There is no evidence for solid renal mass, hydronephrosis, or shadowing calculi. [...] Unremarkable renal ultrasound examination. Signed: Bryan Davison Verified Date/Time: 09/30/2018 17:21:03 Reading Location: [address] Ultrasound Reading Room RAD, CHEST, 1 VIEW, NON [id number] 17:18:00Reason for exam:->assess port placementShould this be performed [...] expected position. No pneumothorax. Signed: Flip Singer Verified Date/Time: 09/30/2018 17:18:52 Reading Location: [facility] Diagnostic Imaging Reading Room - [place] [address] POCT-GLUCOSE [id number] 17:15:00 Test Item Value Reference Range Interpretation Comments POC-GLUCOSE METER > mg/dL 70-110 HH OUTSIDE ME ASURING (BEAKER) (test code RANGETES MAGDALENO AT [facility] 6720 = 1538) [facility] [address] U/S, ABDOMINAL, [id number] 15:35:00Abdomen limited area? Add comment if clarification is needed.->Liverhypoglycemia Reason for exam:->looking for cirrhosis.FINAL REPORT Right Upper Quadrant Ultrasound Clinical Diagnosis: Abdominal distention cystic fibrosis Comparison: March 2018 Technique: Multiple transaxial and longitudinal images were obtained through the right upper quadrant with real time ultrasonography. Five mHz transducerwas utilized. 64 images were submitted for interpretation. Report:Liver: The liver measures 15.3 cmin the right [...] Flores Verified Date/Time: 09/30/2018 15:35:23 Reading Location: [address] Ultrasound Reading Room CBC W/PLT COUNT & AUTO [id number] 15:30:00 Test Item Value Reference Range Interpretation Comments WHITE BLOOD CELL COUNT (BEAKER) 18.4 K/ L 3.5-10.5 H (test code = 775) RED BLOOD CELL COUNT (BEAKER) 3.82 M/ L 3.93-5.22 L (test code = 761) HEMOGLOBIN (BEAKER) (test code = 10.1 GM/DL 11.2-15.7 L 410) HEMATOCRIT (BEAKER) (test code = 33.9 % 34.1-44.9 L 411) MEAN CORPUSCULAR VOLUME (BEAKER) 88.7 fL 79.4-94.8 (test code = 753) MEAN CORPUSCULAR HEMOGLOBIN 26.4 pg 25.6-32.2 (BEAKER) (test code = 751) MEAN CORPUSCULAR HEMOGLOBIN CONC 29.8 GM/DL 32.2-35.5 L (BEAKER) (test code = 752) RED CELL DISTRIBUTION WIDTH 16.7 % 11.7-14.4 H (BEAKER) (test code = 412) PLATELET COUNT (BEAKER) (test 337 K/CU MM 150-450 code = 756) MEAN PLATELET VOLUME (BEAKER) 12.0 fL 9.4-12.3 (test code = 754) NUCLEATED RED BLOOD CELLS 0 /100 WBC 0-0 (BEAKER) (test code = 413) NEUTROPHILS RELATIVE PERCENT 91 % (BEAKER) (test code = 429) LYMPHOCYTES RELATIVE PERCENT 4 % (BEAKER) (test code = 430) MONOCYTES RELATIVE PERCENT 3 % (BEAKER) (test code = 431) EOSINOPHILS RELATIVE PERCENT 2 % (BEAKER) (test code = 432) BASOPHILS RELATIVE PERCENT 0 % (BEAKER) (test code = 437) NEUTROPHILS ABSOLUTE COUNT 16.67 K/ L 1.56-6.13 H (BEAKER) (test code = 670) LYMPHOCYTES ABSOLUTE COUNT 0.73 K/ L 1.18-3.74 L (BEAKER) (test code = 414) MONOCYTES ABSOLUTE COUNT (BEAKER) 0.47 K/ L 0.24-0.36 H (test code = 415) EOSINOPHILS ABSOLUTE COUNT 0.30 K/ L 0.04-0.36 (BEAKER) (test code = 416) BASOPHILS ABSOLUTE COUNT (BEAKER) 0.02 K/ L 0.01-0.08 (test code = 417) IMMATURE GRANULOCYTES-RELATIVE 1 % 0-1 PERCENT (BEAKER) (test code = 2801) COMPREHENSIVE METABOLIC [id number] 14:42:00 Test Item Value Reference Range Interpretation Comments TOTAL PROTEIN 6.8 gm/dL 6.0-8.3 Specimen sligh tly (BEAKER) (test code = hemoly zed 770) ALBUMIN (BEAKER) 3.0 g/dL 3.5-5.0 L Specimen sl ightly (test code = 1145) hemolyzed ALKALINE PHOSPHATASE 95 U/L 40-150 (BEAKER) (test code = 346) BILIRUBIN TOTAL 0.2 mg/dL 0.2-1.2 Specimen sli ghtly (BEAKER) (test code = hemoly zed 377) SODIUM (BEAKER) (test 132 meq/L 136-145 L code = 381) POTASSIUM (BEAKER) 6.7 meq/L 3.5-5.1 HH Specimen slightly (test code = 379) hemolyzed CHLORIDE (BEAKER) 94 meq/L 98-107 L (test code = 382) CO2 (BEAKER) (test 30 meq/L 22-29 H code = 355) BLOOD UREA NITROGEN 28 mg/dL 7-21 H (BEAKER) (test code = 354) CREATININE (BEAKER) 0.90 mg/dL 0.57-1.25 Specimen slightly (test code = 358) hemolyzed GLUCOSE RANDOM 519 mg/dL 70-105 HH (BEAKER) (test code = 652) CALCIUM (BEAKER) 8.1 mg/dL 8.4-10.2 L (test code = 697) AST (SGOT) (BEAKER) 148 U/L 5-34 H Specimen slightly (test code = 353) hemolyzed ALT (SGPT) (BEAKER) 76 U/L 6-55 H Specimen slightly (test code = 347) hemolyzed EGFR (BEAKER) (test 92 mL/min/1.73 ESTIMA MAGDALENO GFR IS code = 1092) sq m NOT ACCURATE CREATININE CLEARANCE IN PREDICTING GLOMERULAR FILTRATION RATE . ESTIMATED GFR I S NOT APPLICABLE FOR DIALYSIS PATIEN TS. CBC W/PLT COUNT & AUTO [id number] 14:27:00 Test Item Value Reference Range Interpretation Comments WHITE BLOOD CELL COUNT (BEAKER) 19.9 K/ L 3.5-10.5 H (test code = 775) RED BLOOD CELL COUNT (BEAKER) 3.79 M/ L 3.93-5.22 L (test code = 761) HEMOGLOBIN (BEAKER) (test code = 10.2 GM/DL 11.2-15.7 L 410) HEMATOCRIT (BEAKER) (test code = 34.1 % 34.1-44.9 411) MEAN CORPUSCULAR VOLUME (BEAKER) 90.0 fL 79.4-94.8 (test code = 753) MEAN CORPUSCULAR HEMOGLOBIN 26.9 pg 25.6-32.2 (BEAKER) (test code = 751) MEAN CORPUSCULAR HEMOGLOBIN CONC 29.9 GM/DL 32.2-35.5 L (BEAKER) (test code = 752) RED CELL DISTRIBUTION WIDTH 16.2 % 11.7-14.4 H (BEAKER) (test code = 412) PLATELET COUNT (BEAKER) (test 288 K/CU MM 150-450 code = 756) MEAN PLATELET VOLUME (BEAKER) 11.9 fL 9.4-12.3 (test code = 754) NUCLEATED RED BLOOD CELLS 0 /100 WBC 0-0 (BEAKER) (test code = 413) NEUTROPHILS RELATIVE PERCENT 91 % (BEAKER) (test code = 429) LYMPHOCYTES RELATIVE PERCENT 4 % (BEAKER) (test code = 430) MONOCYTES RELATIVE PERCENT 3 % (BEAKER) (test code = 431) EOSINOPHILS RELATIVE PERCENT 2 % (BEAKER) (test code = 432) BASOPHILS RELATIVE PERCENT 0 % (BEAKER) (test code = 437) NEUTROPHILS ABSOLUTE COUNT 18.05 K/ L 1.56-6.13 H (BEAKER) (test code = 670) LYMPHOCYTES ABSOLUTE COUNT 0.69 K/ L 1.18-3.74 L (BEAKER) (test code = 414) MONOCYTES ABSOLUTE COUNT (BEAKER) 0.54 K/ L 0.24-0.36 H (test code = 415) EOSINOPHILS ABSOLUTE COUNT 0.38 K/ L 0.04-0.36 H (BEAKER) (test code = 416) BASOPHILS ABSOLUTE COUNT (BEAKER) 0.02 K/ L 0.01-0.08 (test code = 417) IMMATURE GRANULOCYTES-RELATIVE 1 % 0-1 PERCENT (BEAKER) (test code = 2804) POCT-GLUCOSE [id number] 13:56:00 Test Item Value Reference Range Interpretation Comments POC-GLUCOSE METER 406 mg/dL 70-[address] [facility] 6720 (BEAKER) (test code = [place] 1538) [address] POCT-GLUCOSE [id number] 12:35:00 Test Item Value Reference Range Interpretation Comments POC-GLUCOSE METER 122 mg/dL 70-110 H TESTED AT [place] [address] ([facility]) (test code = PAUL Tanner [place] 1538) [address] POCT-GLUCOSE [id number] 12:04:00 Test Item Value Reference Range Interpretation Comments POC-GLUCOSE METER 67 mg/dL 70-110 L Will Repea t Test/TESTED ([facility]) (test code = AT [place] [address]798) [facility] 7703 0 POCT-GLUCOSE [id number] 11:01:00 Test Item Value Reference Range Interpretation Comments POC-GLUCOSE METER 196 mg/dL 70-110 H TESTED AT [place] [address] ([facility]) (test code = PAUL Tanner [facility] 1538) [address]474 POCT-GLUCOSE [id number] 10:15:00 Test Item Value Reference Range Interpretation Comments POC-GLUCOSE METER 210 mg/dL 70-110 H TESTED AT [place] [address] ([facility]) (test code = PAUL Tanner [facility] 1538) 20028 POCT-GLUCOSE [id number] 09:49:00 Test Item Value Reference Range Interpretation Comments POC-GLUCOSE METER 137 mg/dL 70-110 H TESTED AT [place] [address] ([facility]) (test code = PAUL Tanner [facility] 1538) 8[address]28 POCT-GLUCOSE [id number] 08:42:00 Test Item Value Reference Range Interpretation Comments POC-GLUCOSE METER 22 mg/dL 70-110 LL Will Repea t Test/TESTED ([facility]) (test code = AT [place] 230798) [facility] 7703 0 POCT-GLUCOSE [id number] 06:34:00 Test Item Value Reference Range Interpretation Comments POC-GLUCOSE METER 123 mg/dL 70-110 H TESTED AT [place] [address] ([facility]) (test code = PAUL Tanner [place] 1538) [address] POCT-GLUCOSE [id number] 05:17:00 Test Item Value Reference Range Interpretation Comments POC-GLUCOSE METER 257 mg/dL 70-110 H TESTED AT [place] [address] ([facility]) (test code = PAUL Tanner [place] 1538) 12369 POCT-GLUCOSE [id number] 04:33:00 Test Item Value Reference Range Interpretation Comments POC-GLUCOSE METER 197 mg/dL 70-110 H TESTED AT [place] [address] ([facility]) (test code = PAUL Tanner [place] 1538) 8[address] POCT-GLUCOSE [id number] 04:04:00 Test Item Value Reference Range Interpretation Comments POC-GLUCOSE METER 48 mg/dL 70-110 L TESTED AT [place] [address] ([facility]) (test code = PAUL Tanner [facility] [address] 1538) POCT-GLUCOSE [id number] 03:44:00 Test Item Value Reference Range Interpretation Comments POC-GLUCOSE METER 62 mg/dL 70-110 L TESTED AT [place] [address] ([facility]) (test code = PAUL Tanner [facility] [address] 1538) POCT-GLUCOSE [id number] 02:42:00 Test Item Value Reference Range Interpretation Comments POC-GLUCOSE METER 43 mg/dL 70-110 L Notified Ciro Polanco MD/TESTED AT ([facility]) (test code = [address] 1538) [place] [address] POCT-GLUCOSE [id number] 02:10:00 Test Item Value Reference Range Interpretation Comments POC-GLUCOSE METER 73 mg/dL 70-110 TESTED AT [place] [address] ([facility]) (test code = PAUL Tanner [facility] [address] 1538) POCT-GLUCOSE [id number] 00:59:00 Test Item Value Reference Range Interpretation Comments POC-GLUCOSE METER 222 mg/dL 70-110 H TESTED AT [place] [address] ([facility]) (test code = PAUL Tanner [facility] 1538) [address] POCT-GLUCOSE [id number] 23:57:00 Test Item Value Reference Range Interpretation Comments POC-GLUCOSE METER 314 mg/dL 70-110 H TESTED AT [place] [address] ([facility]) (test code = PAUL Tanner [place] 1538) [address] POCT-GLUCOSE [id number] 22:42:00 Test Item Value Reference Range Interpretation Comments POC-GLUCOSE METER 197 mg/dL 70-110 H TESTED AT [place] [address] ([facility]) (test code = PAUL Tanner [place] 1538) [address] POCT-GLUCOSE [id number] 21:38:00 Test Item Value Reference Range Interpretation Comments POC-GLUCOSE METER 153 mg/dL 70-110 H TESTED AT [place] [address] ([facility]) (test code = PAUL Tanner [place] 264598) [address] POCT-GLUCOSE [id number] 20:44:00 Test Item Value Reference Range Interpretation Comments POC-GLUCOSE METER 164 mg/dL 70-110 H TESTED AT [place] [address] ([facility]) (test code = PAUL Tanner [place] 264598) [address] POCT-GLUCOSE [id number] 19:15:00 Test Item Value Reference Range Interpretation Comments POC-GLUCOSE METER 186 mg/dL 70-110 H TESTED AT [place] [address] ([facility]) (test code = [place] [address]) [address] POCT-GLUCOSE [id number] 18:06:00 Test Item Value Reference Range Interpretation Comments POC-GLUCOSE METER 215 mg/dL 70-110 H TESTED AT [place] [address] ([facility]) (test code = NA[place] [address]) [address] POCT-GLUCOSE [id number] 17:31:00 Test Item Value Reference Range Interpretation Comments POC-GLUCOSE METER 116 mg/dL 70-110 H TESTED AT [place] [address] ([facility]) (test code = NA[place] [address]) [address] POCT-GLUCOSE [id number] 15:46:00 Test Item Value Reference Range Interpretation Comments POC-GLUCOSE METER 311 mg/dL 70-110 H Notified Ciro Polanco MD/TESTED ([facility]) (test code = AT [place] [address]) [facility] 7703 0 POCT-GLUCOSE [id number] 14:37:00 Test Item Value Reference Range Interpretation Comments POC-GLUCOSE METER 306 mg/dL 70-110 H Notified Ciro Polanco MD/TESTED ([facility]) (test code = AT [place] [address]) [facility] 7703 0 POCT-GLUCOSE [id number] 14:07:00 Test Item Value Reference Range Interpretation Comments POC-GLUCOSE METER 326 mg/dL 70-110 H Patient on insulin ([facility]) (test code = Drip/T ESTED AT [place] [address]) 67[address] [facility] [address] POCT-GLUCOSE [id number] 12:52:00 Test Item Value Reference Range Interpretation Comments POC-GLUCOSE METER 360 mg/dL 70-110 H Patient on insulin ([facility]) (test code = Drip/T ESTED AT [facility] 1538) [address] [facility] [address] POCT-GLUCOSE [id number] 11:24:00 Test Item Value Reference Range Interpretation Comments POC-GLUCOSE METER 366 mg/dL 70-110 H Notified Ciro Polanco MD/TESTED ([facility]) (test code = AT [facility] [address] [place] [address] 1538) [facility] 7703 0 RAD, CHEST, 1 VIEW, NON [id number] 10:40:00Reason for exam:->pulm cystic fibrosisShould this be performed at the bedside?->YesFINAL REPORT Chest one view. Clinical history: pulm cystic fibrosis Comparison: September 22, 2018 Discussion: A frontal chest is provided. Cardiomediastinal contours are unchanged. Right Port-A-Cath is in stable position. Interstitial opacities and bronchiectasis with upper lung zone predominance is in keeping with history of cystic fibrosis. No definite new consolidation isidentified. There is no evidence of pulmonary edema, pneumothorax, or significant effusion. Osseous structures are intact. Signed: Everardo Castellanos Verified Date/Time: 09/29/2018 10:40:52 Reading Location: [facility] Radiology Reading Room POCT-GLUCOSE [id number] 10:18:00 Test Item Value Reference Range Interpretation Comments POC-GLUCOSE METER 299 mg/dL 70-110 H TESTED AT [place] [address] ([facility]) (test code = PAUL Tanner [place] 264598) [address]99 POCT-GLUCOSE [id number] 09:42:00 Test Item Value Reference Range Interpretation Comments POC-GLUCOSE METER 146 mg/dL 70-110 H TESTED AT [place] [address] ([facility]) (test code = PAUL Tanner [facility] 1538) [address] POCT-GLUCOSE [id number] 09:01:00 Test Item Value Reference Range Interpretation Comments POC-GLUCOSE METER 97 mg/dL 70-110 TESTED AT [place] [address] ([facility]) (test code = PAUL Tanner [facility] [address] 1538) POCT-GLUCOSE [id number] 07:56:00 Test Item Value Reference Range Interpretation Comments POC-GLUCOSE METER 144 mg/dL 70-110 H TESTED AT [place] [id number] ([facility]) (test code = PAUL Tanner [facility] 1538) [address] POCT-GLUCOSE [id number] 06:34:00 Test Item Value Reference Range Interpretation Comments POC-GLUCOSE METER 231 mg/dL 70-110 H TESTED AT [place] [address] ([facility]) (test code = PAUL Tanner [facility] 1538) 8[address] POCT-GLUCOSE [id number] 05:35:00 Test Item Value Reference Range Interpretation Comments POC-GLUCOSE METER 330 mg/dL 70-110 H Notified Ciro Polanco MD/TESTED ([facility]) (test code = AT [facility] [address] [place] [address] 1538) [facility] 7703 0 POCT-GLUCOSE [id number] 04:31:00 Test Item Value Reference Range Interpretation Comments POC-GLUCOSE METER 291 mg/dL 70-110 H TESTED AT [place] [address] ([facility]) (test code = PAUL Tanner [facility] 1538) [address] POCT-GLUCOSE [id number] 04:00:00 Test Item Value Reference Range Interpretation Comments POC-GLUCOSE METER 246 mg/dL 70-110 H TESTED AT [place] [address] ([facility]) (test code = [facility] Ciro [facility] 1538) [address] TSH/FREE T4 IF [id number] 03:14:00 Test Item Value Reference Range Interpretation Comments THYROID STIMULATING HORMONE 1.25 uIU/mL 0.35-4.94 ([facility]) (test code = 772) COMPREHENSIVE METABOLIC [id number] 02:54:00 Test Item Value Reference Range Interpretation Comments TOTAL PROTEIN 6.5 gm/dL 6.0-8.3 (BEAKER) (test code = 770) ALBUMIN (BEAKER) 2.9 g/dL 3.5-5.0 L (test code = 1145) ALKALINE PHOSPHATASE 99 U/L 40-150 (BEAKER) (test code = 346) BILIRUBIN TOTAL 0.1 mg/dL 0.2-1.2 L (BEAKER) (test code = 377) SODIUM (BEAKER) (test 136 meq/L 136-145 code = 381) POTASSIUM (BEAKER) 5.0 meq/L 3.5-5.1 (test code = 379) CHLORIDE (BEAKER) 97 meq/L 98-107 L (test code = 382) CO2 (BEAKER) (test 29 meq/L 22-29 code = 355) BLOOD UREA NITROGEN 32 mg/dL 7-21 H (BEAKER) (test code = 354) CREATININE (BEAKER) 1.05 mg/dL 0.57-1.25 (test code = 358) GLUCOSE RANDOM 234 mg/dL 70-105 H (BEAKER) (test code = 652) CALCIUM (BEAKER) 8.6 mg/dL 8.4-10.2 (test code = 697) AST (SGOT) (BEAKER) 19 U/L 5-34 (test code = 353) ALT (SGPT) (BEAKER) 30 U/L 6-55 (test code = 347) EGFR (BEAKER) (test 77 mL/min/1.73 ESTIMA MAGDALNEO GFR IS code = 1092) sq m NOT ACCURATE CREATININE CLEARANCE IN PREDICTING GLOMERULAR FILTRATION RATE . ESTIMATED GFR I S NOT APPLICABLE FOR DIALYSIS PATIEN TS. CBC W/PLT COUNT & AUTO [id number] 02:37:00 Test Item Value Reference Range Interpretation Comments WHITE BLOOD CELL COUNT (BEAKER) 16.5 K/ L 3.5-10.5 H (test code = 775) RED BLOOD CELL COUNT (BEAKER) 3.82 M/ L 3.93-5.22 L (test code = 761) HEMOGLOBIN (BEAKER) (test code = 10.2 GM/DL 11.2-15.7 L 410) HEMATOCRIT (BEAKER) (test code = 33.5 % 34.1-44.9 L 411) MEAN CORPUSCULAR VOLUME (BEAKER) 87.7 fL 79.4-94.8 (test code = 753) MEAN CORPUSCULAR HEMOGLOBIN 26.7 pg 25.6-32.2 (BEAKER) (test code = 751) MEAN CORPUSCULAR HEMOGLOBIN CONC 30.4 GM/DL 32.2-35.5 L (BEAKER) (test code = 752) RED CELL DISTRIBUTION WIDTH 15.5 % 11.7-14.4 H (BEAKER) (test code = 412) PLATELET COUNT (BEAKER) (test 321 K/CU MM 150-450 code = 756) MEAN PLATELET VOLUME (BEAKER) 11.6 fL 9.4-12.3 (test code = 754) NUCLEATED RED BLOOD CELLS 0 /100 WBC 0-0 (BEAKER) (test code = 413) NEUTROPHILS RELATIVE PERCENT 84 % (BEAKER) (test code = 429) LYMPHOCYTES RELATIVE PERCENT 6 % (BEAKER) (test code = 430) MONOCYTES RELATIVE PERCENT 8 % (BEAKER) (test code = 431) EOSINOPHILS RELATIVE PERCENT 0 % (BEAKER) (test code = 432) BASOPHILS RELATIVE PERCENT 0 % (BEAKER) (test code = 437) NEUTROPHILS ABSOLUTE COUNT 13.76 K/ L 1.56-6.13 H (BEAKER) (test code = 670) LYMPHOCYTES ABSOLUTE COUNT 1.00 K/ L 1.18-3.74 L (BEAKER) (test code = 414) MONOCYTES ABSOLUTE COUNT (BEAKER) 1.37 K/ L 0.24-0.36 H (test code = 415) EOSINOPHILS ABSOLUTE COUNT 0.05 K/ L 0.04-0.36 (BEAKER) (test code = 416) BASOPHILS ABSOLUTE COUNT (BEAKER) 0.03 K/ L 0.01-0.08 (test code = 417) IMMATURE GRANULOCYTES-RELATIVE 2 % 0-1 H PERCENT (BEAKER) (test code = 2801) POCT-GLUCOSE [id number] 02:16:00 Test Item Value Reference Range Interpretation Comments POC-GLUCOSE METER 267 mg/dL 70-110 H TESTED AT [place] [address] (BEAKER) (test code = [facility] 1538) [address] POCT-GLUCOSE [id number] 01:05:00 Test Item Value Reference Range Interpretation Comments POC-GLUCOSE METER 350 mg/dL 70-110 H TESTED AT [place] [address] ([facility]) (test code = [facility] 1538) [address] POCT-GLUCOSE [id number] 00:18:00 Test Item Value Reference Range Interpretation Comments POC-GLUCOSE METER 463 mg/dL 70-110 HH TESTED AT [place] [address] ([facility]) (test code = [facility] 1538) [address] BASIC METABOLIC [id number] 23:00:00 Test Item Value Reference Range Interpretation Comments SODIUM (BEAKER) 132 meq/L 136-145 L (test code = 381) POTASSIUM (BEAKER) 6.3 meq/L 3.5-5.1 HH (test code = 379) CHLORIDE (BEAKER) 93 meq/L 98-107 L (test code = 382) CO2 (BEAKER) (test 31 meq/L 22-29 H code = 355) BLOOD UREA NITROGEN 31 mg/dL 7-21 H (BEAKER) (test code = 354) CREATININE (BEAKER) 1.51 mg/dL 0.57-1.25 H (test code = 358) GLUCOSE RANDOM 611 mg/dL 70-105 HH (BEAKER) (test code = 652) CALCIUM (BEAKER) 8.3 mg/dL 8.4-10.2 L (test code = 697) EGFR (BEAKER) (test 50 mL/min/1.73 ESTIMA MAGDALENO GFR IS code = 1092) sq m NOT ACCURATE CREATININE CLEARANCE IN PREDICTING GLOMERULAR FILTRATION RATE . ESTIMATED GFR I S NOT APPLICABLE FOR DIALYSIS PATIEN TS. POCT-GLUCOSE [id number] 22:53:00 Test Item Value Reference Range Interpretation Comments POC-GLUCOSE METER > mg/dL 70-110 HH OUTSIDE ME ASURING (BEAKER) (test code RANGENot domenica RUVALCABA MD/TESTED = 1538) AT [place] [address] [facility] 7703 0 POCT-GLUCOSE [id number] 20:20:00 Test Item Value Reference Range Interpretation Comments POC-GLUCOSE METER > mg/dL 70-110 HH OUTSIDE ME ASURING (BEAKER) (test code RANGENot domenica RUVALCABA MD/TESTED = 1538) AT [place] [address] [facility] 7703 0 POCT-GLUCOSE [id number] 18:29:00 Test Item Value Reference Range Interpretation Comments POC-GLUCOSE METER 378 mg/dL 70-110 H TESTED AT [place] [address] ([facility]) (test code = PAUL Tanner [facility] 1538) [address] POCT-GLUCOSE [id number] 16:28:00 Test Item Value Reference Range Interpretation Comments POC-GLUCOSE METER 376 mg/dL 70-110 H TESTED AT [place] [address] ([facility]) (test code = PAUL Tanner [facility] 1538) [address] POCT-GLUCOSE [id number] 16:06:00 Test Item Value Reference Range Interpretation Comments POC-GLUCOSE METER 393 mg/dL 70-110 H TESTED AT [place] [address] ([facility]) (test code = [place] 1538) [address] POCT-GLUCOSE [id number] 15:50:00 Test Item Value Reference Range Interpretation Comments POC-GLUCOSE METER 355 mg/dL 70-110 H Notified R Collin or ([facility]) (test code = Adelia cooney refused repeat 1537) test/TESTED AT [place] [address] [place] [address] POCT-GLUCOSE [id number] 15:21:00 Test Item Value Reference Range Interpretation Comments POC-GLUCOSE METER 265 mg/dL 70-110 H TESTED AT [place] [address] ([facility]) (test code = PAUL Tanner [place] 1538) [address] POCT-GLUCOSE [id number] 14:41:00 Test Item Value Reference Range Interpretation Comments POC-GLUCOSE METER 225 mg/dL 70-110 H TESTED AT [place] [address] ([facility]) (test code = PAUL Tanner [facility] 1538) [address] ANG, VENOCAVAGRAM, [id number] 14:17:00Reason for exam:->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 Angioplasty of the right subclavian vein as described. Signed: Darrin Hart [facility] Verified Date/Time: 09/28/2018 14:17:02 Reading Location: [place] [address] Angio Body Reading Room POCT-GLUCOSE [id number] 14:15:00 Test Item Value Reference Range Interpretation Comments POC-GLUCOSE METER 230 mg/dL 70-110 H TESTED AT [place] [address] ([facility]) [facility] 1538) [address] POCT-GLUCOSE [id number] 13:37:00 Test Item Value Reference Range Interpretation Comments POC-GLUCOSE METER 238 mg/dL 70-110 H TESTED AT [place] [address] ([facility]) (test [facility] = [facility] Ciro [facility] 1538) [address] POCT-GLUCOSE [id number] 13:37:00 Test Item Value Reference Range Interpretation Comments POC-GLUCOSE METER 294 mg/dL 70-110 H TESTED AT [place] [address] ([facility]) (test code = [facility] Ciro [facility] 1538) [address] POCT-GLUCOSE [id number] 12:55:00 Test Item Value Reference Range Interpretation Comments POC-GLUCOSE METER 71 mg/dL 70-110 TESTED AT [place] [address] ([facility]) (test code = PAUL Tanner [facility] [address] 1538) POCT-GLUCOSE [id number] 12:01:00 Test Item Value Reference Range Interpretation Comments POC-GLUCOSE METER 148 mg/dL 70-[address] [facility] 6720 (BEAKER) (test code = [place] 1538) [address] CBC W/PLT COUNT & AUTO [id number] 11:50:00 Test Item Value Reference Range Interpretation Comments WHITE BLOOD CELL COUNT (BEAKER) 15.3 K/ L 3.5-10.5 H (test code = 775) RED BLOOD CELL COUNT (BEAKER) 3.90 M/ L 3.93-5.22 L (test code = 761) HEMOGLOBIN (BEAKER) (test code = 10.4 GM/DL 11.2-15.7 L 410) HEMATOCRIT (BEAKER) (test code = 34.8 % 34.1-44.9 411) MEAN CORPUSCULAR VOLUME (BEAKER) 89.2 fL 79.4-94.8 (test code = 753) MEAN CORPUSCULAR HEMOGLOBIN 26.7 pg 25.6-32.2 (BEAKER) (test code = 751) MEAN CORPUSCULAR HEMOGLOBIN CONC 29.9 GM/DL 32.2-35.5 L (BEAKER) (test code = 752) RED CELL DISTRIBUTION WIDTH 15.8 % 11.7-14.4 H (BEAKER) (test code = 412) PLATELET COUNT (BEAKER) (test 303 K/CU MM 150-450 code = 756) MEAN PLATELET VOLUME (BEAKER) 11.4 fL 9.4-12.3 (test code = 754) NUCLEATED RED BLOOD CELLS 0 /100 WBC 0-0 (BEAKER) (test code = 413) (CELLAVISION MANUAL DIFF)2018-09-28 11:50:00 Test Item Value Reference Range Interpretation Comments NEUTROPHILS - REL 79 % (CELLAVISION)(BEAKER) (test code = 2816) LYMPHOCYTES - REL 11 % (CELLAVISION)(BEAKER) (test code = 2817) MONOCYTES - REL 10 % (CELLAVISION)(BEAKER) (test code = 2818) NEUTROPHILS - ABS 12.09 K/ul 1.56-6.13 H (CELLAVISION)(BEAKER) (test code = 2830) LYMPHOCYTES - ABS 1.68 K/ul 1.18-3.74 (CELLAVISION)(BEAKER) (test code = 2831) MONOCYTES - ABS 1.53 K/uL 0.24-0.36 H (CELLAVISION)(BEAKER) (test code = 2832) TOTAL COUNTED (BEAKER) (test code 100 = 1351) WBC MORPHOLOGY (BEAKER) (test Normal code = 487) PLT MORPHOLOGY (BEAKER) (test Normal code = 486) POLYCHROMATOPHILLIC RBCS(BEAKER) 2+ moderate (test code = 478) ANISOCYTOSIS (BEAKER) (test code 2+ moderate = 961) TARGET CELLS (BEAKER) (test code 1+ few = 480) ARTIFACT (CELLAVISION)(BEAKER) Present (test code = 3432) PLATELET CONCENTRATION Adequate (CELLAVISION)(BEAKER) (test code = 3438) Received comment: User comments: Slide comments:POCT-GLUCOSE [id number] 11:46:00 Test Item Value Reference Range Interpretation Comments POC-GLUCOSE METER 27 mg/dL 70-110 LL TESTED AT [place] [address] ([facility]) (test code = PAUL Tanner [facility] [id number] 1538) POCT-GLUCOSE [id number] 11:46:00 Test Item Value Reference Range Interpretation Comments POC-GLUCOSE METER 106 mg/dL 70-[address] [facility] [address] ([facility]) (test code = NAOMITAYO Tanner [facility] 1538) [address] POCT-GLUCOSE [id number] 11:46:00 Test Item Value Reference Range Interpretation Comments POC-GLUCOSE METER 20 mg/dL 70-[address] [facility] [address] ([facility]) (test code = PAUL Tanner [facility] [address] 1538) POCT-GLUCOSE [id number] 11:46:00 Test Item Value Reference Range Interpretation Comments POC-GLUCOSE METER 63 mg/dL 70-[address] [facility] [address] ([facility]) (test code = PAUL Tanner [facility] [address] 1538) CF RESPIRATORY [id number] 11:03:00 Test Item Value Reference Range Interpretation Comments CULTURE (BEAKER) PSEUDOMONAS A 4+ Pseudomo viki (test code = 1095) AERUGINOSA aeruginos a (MUCOID-PHENOTYPE (Mucoid-ph enotype ) ) Amikacin (test code Susceptible 0-16 S = 1) , Resistant <0 or >16 Aztreonam (test Susceptible 0-8 , S code = 32) Resistant <0 or >8 Cefepime (test code Susceptible 0-8 , S = 51) Resistant <0 or >8 Ceftazidime (test Susceptible 0-8 , S code = 27) Resistant <0 or >8 Ciprofloxacin (test Susceptible 0-1 , R code = 7) Resistant <0 or >1 Gentamicin (test Susceptible 0-4 , S code = 18) Resistant <0 or >4 Levofloxacin (test Susceptible 0-2 , R code = 22) Resistant <0 or >2 Meropenem (test Susceptible 0-2 , R code = 34) Resistant <0 or >2 Piperacillin (test Susceptible 0-16 R code = 24) , Resistant <0 or >16 Piperacillin + Susceptible 0-16 S Tazobactam (test , Resistant <0 or code = 29) >16 Tobramycin (test Susceptible 0-4 , S code = 25) Resistant <0 or >4 CULTURE ([facility]) A 4+ Pseudomo viki (test code = 1095) aeruginos a 1+ Normal respiratory derick presentPOCT-GLUCOSE [id number] 09:33:00 Test Item Value Reference Range Interpretation Comments POC-GLUCOSE METER 29 mg/dL 70-110 LL TESTED AT [facility] [place] [address] ([facility]) (test code = PAUL Tanner [facility] [id number] 1538) POCT-GLUCOSE [id number] 08:48:00 Test Item Value Reference Range Interpretation Comments POC-GLUCOSE METER 134 mg/dL 70-110 H TESTED AT [place] [address] ([facility]) (test code = PAUL Tanner [facility] 1538) [address] COMPREHENSIVE METABOLIC [id number] 06:31:00 Test Item Value Reference Range Interpretation Comments TOTAL PROTEIN 6.4 gm/dL 6.0-8.3 ([facility]) (test code = 770) ALBUMIN ([facility]) 2.8 g/dL 3.5-5.0 L (test code = 1145) ALKALINE PHOSPHATASE 99 U/L 40-150 ([facility]) (test code = 346) BILIRUBIN TOTAL 0.1 mg/dL 0.2-1.2 L (AKER) (test code = 377) SODIUM (AKER) (test 139 meq/L 136-145 code = 381) POTASSIUM (BEAKER) 4.3 meq/L 3.5-5.1 (test code = 379) CHLORIDE (BEAKER) 103 meq/L 98-107 (test code = 382) CO2 (BEAKER) (test 27 meq/L 22-29 code = 355) BLOOD UREA NITROGEN 25 mg/dL 7-21 H (BEAKER) (test code = 354) CREATININE (BEAKER) 0.71 mg/dL 0.57-1.25 (test code = 358) GLUCOSE RANDOM 67 mg/dL 70-105 L (BEAKER) (test code = 652) CALCIUM (BEAKER) 8.6 mg/dL 8.4-10.2 (test code = 697) AST (SGOT) (BEAKER) 25 U/L 5-34 (test code = 353) ALT (SGPT) (BEAKER) 29 U/L 6-55 (test code = 347) EGFR (BEAKER) (test 121 ESTIMATE D GFR IS code = 1092) mL/min/1.73 sq NOT ACCURA TE m CREATININE CLEARANCE IN PREDICTING GLOMERULAR FILTRATION RATE . ESTIMATED GFR I S NOT APPLICABLE FOR DIALYSIS PATIEN TS. [id number] 06:28:00 Test Item Value Reference Range Interpretation Comments PROTIME (BEAKER) (test code = 13.2 seconds 11.7-14.7 759) INR (BEAKER) (test code = 370) 1.0 <=5.9 PARTIAL THROMBOPLASTIN TIME 23.8 seconds 22.5-36.0 (BEAKER) (test code = 760) RECOMMENDED COUMADIN/WARFARIN INR THERAPY RANGESSTANDARD DOSE: 2.0 - 3.0 Includes: PROPHYLAXIS forvenous thrombosis, systemic embolization; TREATMENT for venous thrombosis and/or pulmonary embolus.HIGH RISK: Target INR is 2.5-3.5 for patients with mechanical heart valves.POCT-GLUCOSE [id number] 06:01:00 Test Item Value Reference Range Interpretation Comments POC-GLUCOSE METER 102 mg/dL 70-[address] [facility] 67 [facility] (test code = [facility] 1538) [address] POCT-GLUCOSE [id number] 06:00:00 Test Item Value Reference Range Interpretation Comments POC-GLUCOSE METER 65 mg/dL 70-[address] [facility] 6720 ([facility]) (test code = [facility] [id number] 1538) POCT-GLUCOSE [id number] 02:18:00 Test Item Value Reference Range Interpretation Comments POC-GLUCOSE METER 185 mg/dL 70-110 H TESTED AT [place] [address] ([facility]) (test code = PAUL Tanner [facility] 1538) [address] POCT-GLUCOSE [id number] 00:05:00 Test Item Value Reference Range Interpretation Comments POC-GLUCOSE METER 254 mg/dL 70-110 H TESTED AT [place] [address] ([facility]) (test code = PAUL Tanner [facility] 1538) [address] POCT-GLUCOSE [id number] 20:51:00 Test Item Value Reference Range Interpretation Comments POC-GLUCOSE METER 157 mg/dL 70-110 H TESTED AT [place] [address] ([facility]) (test code = PAUL Tanner [facility] 1538) [address] POCT-GLUCOSE [id number] 17:44:00 Test Item Value Reference Range Interpretation Comments POC-GLUCOSE METER 192 mg/dL 70-110 H TESTED AT [place] [address] ([facility]) (test code = PAUL Tanner [facility] 1538) [address] POCT-GLUCOSE [id number] 12:38:00 Test Item Value Reference Range Interpretation Comments POC-GLUCOSE METER 338 mg/dL 70-110 H Notified R Collin STAPLETON/TESTED ([facility]) (test code = AT [address] 1538) [facility] [address] AFB CULTURE + [id number] 10:58:00 Test Item Value Reference Range Interpretation Comments CULTURE ([facility]) (test No acid-fast bacilli code = 1095) isolated in 42 days AFB SMEAR ([facility]) No acid fast bacilli (test code = 994) seen COMPREHENSIVE METABOLIC [id number] 10:31:00 Test Item Value Reference Range Interpretation Comments TOTAL PROTEIN 6.5 gm/dL 6.0-8.3 ([facility]) (test code = 770) ALBUMIN ([facility]) 2.8 g/dL 3.5-5.0 L (test code = 1145) ALKALINE PHOSPHATASE 109 U/L 40-150 ([facility]) (test code = 346) BILIRUBIN TOTAL 0.1 mg/dL 0.2-1.2 L ([facility]) (test code = 377) SODIUM ([facility]) (test 137 meq/L 136-145 code = 381) POTASSIUM (BEAKER) 4.6 meq/L 3.5-5.1 (test code = 379) CHLORIDE (BEAKER) 97 meq/L 98-107 L (test code = 382) CO2 (BEAKER) (test 29 meq/L 22-29 code = 355) BLOOD UREA NITROGEN 26 mg/dL 7-21 H (BEAKER) (test code = 354) CREATININE (BEAKER) 0.88 mg/dL 0.57-1.25 (test code = 358) GLUCOSE RANDOM 298 mg/dL 70-105 H (BEAKER) (test code = 652) CALCIUM (BEAKER) 8.5 mg/dL 8.4-10.2 (test code = 697) AST (SGOT) (BEAKER) 26 U/L 5-34 (test code = 353) ALT (SGPT) (BEAKER) 30 U/L 6-55 (test code = 347) EGFR (BEAKER) (test 94 mL/min/1.73 ESTIMA MAGDALENO GFR IS code = 1092) sq m NOT ACCURATE CREATININE CLEARANCE IN PREDICTING GLOMERULAR FILTRATION RATE . ESTIMATED GFR I S NOT APPLICABLE FOR DIALYSIS PATIEN TS. CBC W/PLT COUNT & AUTO [id number] 10:30:00 Test Item Value Reference Range Interpretation Comments WHITE BLOOD CELL COUNT (BEAKER) 17.2 K/ L 3.5-10.5 H (test code = 775) RED BLOOD CELL COUNT (BEAKER) 3.93 M/ L 3.93-5.22 (test code = 761) HEMOGLOBIN (BEAKER) (test code = 10.4 GM/DL 11.2-15.7 L 410) HEMATOCRIT (BEAKER) (test code = 34.7 % 34.1-44.9 411) MEAN CORPUSCULAR VOLUME (BEAKER) 88.3 fL 79.4-94.8 (test code = 753) MEAN CORPUSCULAR HEMOGLOBIN 26.5 pg 25.6-32.2 (BEAKER) (test code = 751) MEAN CORPUSCULAR HEMOGLOBIN CONC 30.0 GM/DL 32.2-35.5 L (BEAKER) (test code = 752) RED CELL DISTRIBUTION WIDTH 15.4 % 11.7-14.4 H (BEAKER) (test code = 412) PLATELET COUNT (BEAKER) (test 343 K/CU MM 150-450 code = 756) MEAN PLATELET VOLUME (BEAKER) 11.2 fL 9.4-12.3 (test code = 754) NUCLEATED RED BLOOD CELLS 0 /100 WBC 0-0 (BEAKER) (test code = 413) NEUTROPHILS RELATIVE PERCENT 87 % (BEAKER) (test code = 429) LYMPHOCYTES RELATIVE PERCENT 6 % (BEAKER) (test code = 430) MONOCYTES RELATIVE PERCENT 5 % (BEAKER) (test code = 431) EOSINOPHILS RELATIVE PERCENT 0 % (BEAKER) (test code = 432) BASOPHILS RELATIVE PERCENT 0 % (BEAKER) (test code = 437) NEUTROPHILS ABSOLUTE COUNT 14.93 K/ L 1.56-6.13 H (BEAKER) (test code = 670) LYMPHOCYTES ABSOLUTE COUNT 0.96 K/ L 1.18-3.74 L (BEAKER) (test code = 414) MONOCYTES ABSOLUTE COUNT (BEAKER) 0.92 K/ L 0.24-0.36 H (test code = 415) EOSINOPHILS ABSOLUTE COUNT 0.00 K/ L 0.04-0.36 L (BEAKER) (test code = 416) BASOPHILS ABSOLUTE COUNT (BEAKER) 0.03 K/ L 0.01-0.08 (test code = 417) IMMATURE GRANULOCYTES-RELATIVE 2 % 0-1 H PERCENT (BEAKER) (test code = 2802) POCT-GLUCOSE [id number] 08:59:00 Test Item Value Reference Range Interpretation Comments POC-GLUCOSE METER 108 mg/dL 70-110 TESTED AT [place] [address] ([facility]) (test code = [place]UL [place] 1538) [address] POCT-GLUCOSE [id number] 07:11:00 Test Item Value Reference Range Interpretation Comments POC-GLUCOSE METER 170 mg/dL 70-[address] [facility] 6720 ([facility]) (test code = PAUL [place] 1538) [address] [id number] 06:34:00 Test Item Value Reference Range Interpretation Comments BLOOD UREA NITROGEN (BEAKER) (test 24 mg/dL 7-21 H code = 354) [id number] 06:34:00 Test Item Value Reference Range Interpretation Comments CREATININE (BEAKER) 0.87 mg/dL 0.57-1.25 (test code = 358) EGFR (BEAKER) (test 95 mL/min/1.73 ESTIMA MAGDALENO GFR IS code = 1092) sq m NOT ACCURATE CREATININE CLEARANCE IN PREDICTING GLOMERULAR FILTRATION RATE . ESTIMATED GFR I S NOT APPLICABLE FOR DIALYSIS PATIEN TS. POCT-GLUCOSE [id number] 06:05:00 Test Item Value Reference Range Interpretation Comments POC-GLUCOSE METER 171 mg/dL 70-110 H TESTED AT [place] [address] ([facility]) (test code = [facility] [place] 1538) [address] SCREEN, [id number] 02:57:00 Test Item Value Reference Range Interpretation Comments TEST URINE ([facility]) (test Negative code = 583) POCT-GLUCOSE [id number] 00:14:00 Test Item Value Reference Range Interpretation Comments POC-GLUCOSE METER 262 mg/dL 70-110 H TESTED AT [place] [address] ([facility]) (test code = NAOMIOR [place] 1538) [address] POCT-GLUCOSE [id number] 21:03:00 Test Item Value Reference Range Interpretation Comments POC-GLUCOSE METER 287 mg/dL 70-110 H TESTED AT [place] [address] ([facility]) (test code = [facility] [place] 1538) [address] RESPIRATORY PANEL [id number] 19:49:00 Test Item Value Reference Range Interpretation Comments HUMAN METAPNEUMOVIRUS Not detected Not detected, (BEAKER) (test code = 2683) Equivocal RHINOVIRUS (BEAKER) (test Not detected Not detected, code = 2684) Equivocal INFLUENZA A (BEAKER) (test Not detected Not detected, code = 2685) Equivocal INFLUENZA A (NO SUBTYPE) Not detected, (test code = 3606) Equivocal INFLUENZA A SUBTYPE H1 Not detected, (BEAKER) (test code = 2686) Equivocal INFLUENZA A SUBTYPE H3 Not detected, (BEAKER) (test code = 2687) Equivocal INFLUENZA A SUBTYPE H1-2009 Not detected, (BEAKER) (test code = 3198) Equivocal INFLUENZA B (BEAKER) (test Not detected Not detected, code = 2688) Equivocal RESPIRATORY SYNCYTIAL VIRUS Not detected Not detected, (BEAKER) (test code = 3199) Equivocal PARAINFLUENZA VIRUS 1 Not detected Not detected, (BEAKER) (test code = 2691) Equivocal PARAINFLUENZA VIRUS 2 Not detected Not detected, (BEAKER) (test code = 2692) Equivocal PARAINFLUENZA VIRUS 3 Not detected Not detected, (BEAKER) (test code = 2693) Equivocal PARAINFLUENZA VIRUS 4 Not detected Not detected, (BEAKER) (test code = 3200) Equivocal ADENOVIRUS (BEAKER) (test Not detected Not detected, code = 2694) Equivocal CORONAVIRUS 229E (BEAKER) Not detected Not detected, (test code = 3201) Equivocal CORONAVIRUS HKU1 (BEAKER) Not detected Not detected, (test code = 3202) Equivocal CORONAVIRUS NL63 (BEAKER) Not detected Not detected, (test code = 3203) Equivocal CORONAVIRUS OC43 (BEAKER) Not detected Not detected, (test code = 3204) Equivocal BORDETELLA PERTUSSIS Not detected Not detected, (BEAKER) (test code = 3205) Equivocal CHLAMYDOPHILA PNEUMONIAE Not detected Not detected, (BEAKER) (test code = 3206) Equivocal MYCOPLASMA PNEUMONIAE Not detected Not detected, (BEAKER) (test code = 3207) Equivocal Other viruses and bacteria not targeted by this PCR panel cannot be excluded; therefore clinical correlation and follow up of serology, culture results, and other molecular studies is required. The results are not intended to be used as the sole means for clinical diagnosis or patient management decisions. This sample was tested at the [facility] Molecular Diagnostics Laboratory using the [employer] Film[employer] Respiratory Panel. It is FDA cleared and has been verified and approved by the [facility]ostics [facility] for clinical use on nasal swab specimens. It is not FDA-cleared for use on bronchial wash/lavage samples. However, for this sample type, validation was performed and test characteristics were determined and approved, by [facility] for clinical use under the Clinical Laboratory Improvement Amendments (CLIA) of 1988 requirements. Therefore, FDA clearance isnot required. This laboratory is CLIA- certified and [employer] [place] [employer] (CAP)-accredited to perform high complexity testing.POCT-GLUCOSE [id number] 17:42:00 Test Item Value Reference Range Interpretation Comments POC-GLUCOSE METER 277 mg/dL 70-[address] [facility] 6717 (MERA) (test code = PAUL Tanner [facility] 1538) [address] POCT-GLUCOSE [id number] 14:59:00 Test Item Value Reference Range Interpretation Comments POC-GLUCOSE METER 328 mg/dL 70-110 H Will Repea t Test/TESTED (BEAKER) (test code = AT [facility] 6720 [facility] 1538) [place] [address] POCT-GLUCOSE [id number] 12:42:00 Test Item Value Reference Range Interpretation Comments POC-GLUCOSE METER 152 mg/dL 70-[address] [facility] 6720 (BEAKER) (test code = PAUL Tanner [facility] 1538) [address] POCT-GLUCOSE [id number] 12:22:00 Test Item Value Reference Range Interpretation Comments POC-GLUCOSE METER 168 mg/dL 70-[address] [facility] 6720 (BEAKER) (test code = NAOMIOR Ciro [facility] 1538) [address] COMPREHENSIVE METABOLIC [id number] 10:53:00 Test Item Value Reference Range Interpretation Comments TOTAL PROTEIN 7.0 gm/dL 6.0-8.3 (BEAKER) (test code = 770) ALBUMIN (BEAKER) 2.8 g/dL 3.5-5.0 L (test code = 1145) ALKALINE PHOSPHATASE 140 U/L 40-150 (BEAKER) (test code = 346) BILIRUBIN TOTAL 0.1 mg/dL 0.2-1.2 L (BEAKER) (test code = 377) SODIUM (BEAKER) (test 135 meq/L 136-145 L code = 381) POTASSIUM (BEAKER) 4.0 meq/L 3.5-5.1 (test code = 379) CHLORIDE (BEAKER) 96 meq/L 98-107 L (test code = 382) CO2 (BEAKER) (test 30 meq/L 22-29 H code = 355) BLOOD UREA NITROGEN 15 mg/dL 7-21 (BEAKER) (test code = 354) CREATININE (BEAKER) 0.70 mg/dL 0.57-1.25 (test code = 358) GLUCOSE RANDOM 156 mg/dL 70-105 H (BEAKER) (test code = 652) CALCIUM (BEAKER) 8.5 mg/dL 8.4-10.2 (test code = 697) AST (SGOT) (BEAKER) 73 U/L 5-34 H (test code = 353) ALT (SGPT) (BEAKER) 44 U/L 6-55 (test code = 347) EGFR (BEAKER) (test 123 ESTIMATE D GFR IS code = 1092) mL/min/1.73 sq NOT ACCURA TE m CREATININE CLEARANCE IN PREDICTING GLOMERULAR FILTRATION RATE . ESTIMATED GFR I S NOT APPLICABLE FOR DIALYSIS PATIEN TS. POCT-GLUCOSE [id number] 10:43:00 Test Item Value Reference Range Interpretation Comments POC-GLUCOSE METER 126 mg/dL 70-[address] [facility] 6720 (BEAKER) (test code = PA[place] 1539) [address] CBC W/PLT COUNT & AUTO [id number] 10:40:00 Test Item Value Reference Range Interpretation Comments WHITE BLOOD CELL COUNT (BEAKER) 19.7 K/ L 3.5-10.5 H (test code = 775) RED BLOOD CELL COUNT (BEAKER) 4.46 M/ L 3.93-5.22 (test code = 761) HEMOGLOBIN (BEAKER) (test code = 12.1 GM/DL 11.2-15.7 410) HEMATOCRIT (BEAKER) (test code = 38.8 % 34.1-44.9 411) MEAN CORPUSCULAR VOLUME (BEAKER) 87.0 fL 79.4-94.8 (test code = 753) MEAN CORPUSCULAR HEMOGLOBIN 27.1 pg 25.6-32.2 (BEAKER) (test code = 751) MEAN CORPUSCULAR HEMOGLOBIN CONC 31.2 GM/DL 32.2-35.5 L (BEAKER) (test code = 752) RED CELL DISTRIBUTION WIDTH 15.1 % 11.7-14.4 H (BEAKER) (test code = 412) PLATELET COUNT (BEAKER) (test 354 K/CU MM 150-450 code = 756) MEAN PLATELET VOLUME (BEAKER) 11.4 fL 9.4-12.3 (test code = 754) NUCLEATED RED BLOOD CELLS 0 /100 WBC 0-0 (BEAKER) (test code = 413) NEUTROPHILS RELATIVE PERCENT 87 % (BEAKER) (test code = 429) LYMPHOCYTES RELATIVE PERCENT 6 % (BEAKER) (test code = 430) MONOCYTES RELATIVE PERCENT 4 % (BEAKER) (test code = 431) EOSINOPHILS RELATIVE PERCENT 0 % (BEAKER) (test code = 432) BASOPHILS RELATIVE PERCENT 0 % (BEAKER) (test code = 437) NEUTROPHILS ABSOLUTE COUNT 17.07 K/ L 1.56-6.13 H (BEAKER) (test code = 670) LYMPHOCYTES ABSOLUTE COUNT 1.22 K/ L 1.18-3.74 (BEAKER) (test code = 414) MONOCYTES ABSOLUTE COUNT (BEAKER) 0.82 K/ L 0.24-0.36 H (test code = 415) EOSINOPHILS ABSOLUTE COUNT 0.00 K/ L 0.04-0.36 L (BEAKER) (test code = 416) BASOPHILS ABSOLUTE COUNT (BEAKER) 0.05 K/ L 0.01-0.08 (test code = 417) IMMATURE GRANULOCYTES-RELATIVE 3 % 0-1 H PERCENT (BEAKER) (test code = 2801) POCT-GLUCOSE [id number] 10:22:00 Test Item Value Reference Range Interpretation Comments POC-GLUCOSE METER 95 mg/dL 70-[address] [facility] 6720 (BEAKER) (test code = [place] [address] 1538) [id number] 09:47:00 Test Item Value Reference Range Interpretation Comments CREATININE (BEAKER) 0.71 mg/dL 0.57-1.25 (test code = 358) EGFR (BEAKER) (test 121 mL/min/1.73 ESTIM ATED GFR IS code = 1092) sq m NOT ACCURATE CREATININE CLEARANCE IN PREDICTING GLOMERULAR FILTRATION RATE . ESTIMATED GFR I S NOT APPLICABLE FOR DIALYSIS PATIEN TS. [id number] 09:41:00 Test Item Value Reference Range Interpretation Comments BLOOD UREA NITROGEN (BEAKER) (test 15 mg/dL 7-21 code = 354) LACTIC ACID, VENOUS, WHOLE [id number] 09:18:00 Test Item Value Reference Range Interpretation Comments LACTATE BLOOD VENOUS (2) (BEAKER) 1.1 mmol/L 0.5-2.2 (test code = 2872) CBC W/PLT COUNT & AUTO [id number] 09:13:00 Test Item Value Reference Range Interpretation Comments WHITE BLOOD CELL COUNT (BEAKER) 20.0 K/ L 3.5-10.5 H (test code = 775) RED BLOOD CELL COUNT (BEAKER) 4.30 M/ L 3.93-5.22 (test code = 761) HEMOGLOBIN (BEAKER) (test code = 11.6 GM/DL 11.2-15.7 410) HEMATOCRIT (BEAKER) (test code = 37.1 % 34.1-44.9 411) MEAN CORPUSCULAR VOLUME (BEAKER) 86.3 fL 79.4-94.8 (test code = 753) MEAN CORPUSCULAR HEMOGLOBIN 27.0 pg 25.6-32.2 (BEAKER) (test code = 751) MEAN CORPUSCULAR HEMOGLOBIN CONC 31.3 GM/DL 32.2-35.5 L (BEAKER) (test code = 752) RED CELL DISTRIBUTION WIDTH 15.0 % 11.7-14.4 H (BEAKER) (test code = 412) PLATELET COUNT (BEAKER) (test 409 K/CU MM 150-450 code = 756) MEAN PLATELET VOLUME (BEAKER) 11.0 fL 9.4-12.3 (test code = 754) NUCLEATED RED BLOOD CELLS 0 /100 WBC 0-0 (BEAKER) (test code = 413) NEUTROPHILS RELATIVE PERCENT 83 % (BEAKER) (test code = 429) LYMPHOCYTES RELATIVE PERCENT 6 % (BEAKER) (test code = 430) MONOCYTES RELATIVE PERCENT 6 % (BEAKER) (test code = 431) EOSINOPHILS RELATIVE PERCENT 0 % (BEAKER) (test code = 432) BASOPHILS RELATIVE PERCENT 0 % (BEAKER) (test code = 437) NEUTROPHILS ABSOLUTE COUNT 16.63 K/ L 1.56-6.13 H (BEAKER) (test code = 670) LYMPHOCYTES ABSOLUTE COUNT 1.24 K/ L 1.18-3.74 (BEAKER) (test code = 414) MONOCYTES ABSOLUTE COUNT (BEAKER) 1.21 K/ L 0.24-0.36 H (test code = 415) EOSINOPHILS ABSOLUTE COUNT 0.00 K/ L 0.04-0.36 L (BEAKER) (test code = 416) BASOPHILS ABSOLUTE COUNT (BEAKER) 0.06 K/ L 0.01-0.08 (test code = 417) IMMATURE GRANULOCYTES-RELATIVE 4 % 0-1 H PERCENT (BEAKER) (test code = 2801) POCT-BLOOD GASES, [id number] 09:11:00 Test Item Value Reference Range Interpretation Comments TEMP, CELSIUS-POC 37.0 (BEAKER) (test code = 1834) FIO2-POC (BEAKER) TESTED AT [facility] 6720 (test code = 1835) [facility] [address] PH, VENOUS-POC 7.377 7.320-7.420 (BEAKER) (test code = 1842) PCO2, VENOUS-POC 61.0 mm Hg 41.0-51.0 H (BEAKER) (test code = 1843) PO2, VENOUS-POC 36.0 mm Hg 25.0-40.0 (BEAKER) (test code = 1844) SO2, VENOUS-POC 66.0 % 40.0-70.0 (BEAKER) (test code = 1845) HCO3, VENOUS-POC 35.8 meq/L 21.0-29.0 H (BEAKER) (test code = 1846) BASE EXCESS, 11.0 meq/L -2.0-3.0 H VENOUS-POC (BEAKER) (test code = 1847) [id number] 09:11:00 Test Item Value Reference Range Interpretation Comments POC-SODIUM ([facility]) 138 meq/L 135-148 TESTED [place] [address] (test code = 1542) [facility] [address] [id number] 09:11:00 Test Item Value Reference Range Interpretation Comments POC-POTASSIUM 2.9 meq/L 3.6-5.5 L TESTED AT [place] [address] ([facility]) (test code [place] [id number] = 1540) [id number] 09:11:00 Test Item Value Reference Range Interpretation Comments POC-GLUCOSE ([facility]) 143 mg/dL 70-110 H TESTED AT [place] [address] (test code = 1855) [facility] [address] POCT-CALCIUM [id number] 09:11:00 Test Item Value Reference Range Interpretation Comments POC-CALCIUM IONIZED 1.10 mmol/L 1.12-1.27 L TESTED [place] [address] ([facility]) (test code = [facility] 1536) [address] [id number] 09:11:00 Test Item Value Reference Range Interpretation Comments POC-HEMATOCRIT 36 % 36-45 TESTED AT [place] [address] ([facility]) (test code = [facility] [address] 1850) [id number] 09:11:00 Test Item Value Reference Range Interpretation Comments POC-HEMOGLOBIN 12.2 g/dL 12.0-15.0 TESTED AT [place] [address] ([facility]) (test code [facility] = 1856) [id number] AT [address] [address] POCT-LACTIC ACID, [id number] 09:11:00 Test Item Value Reference Range Interpretation Comments POC-LACTIC ACID, 1.2 mmol/L 0.9-1.7 TESTED AT [place] [address] [place] ([facility]) (test [facility] code = 2805) [address] POCT-GLUCOSE [id number] 08:55:00 Test Item Value Reference Range Interpretation Comments POC-GLUCOSE METER 283 mg/dL 70-110 H TESTED AT [place] [address] ([facility]) (test code = [facility] 1538) [address] POCT-GLUCOSE [id number] 08:34:00 Test Item Value Reference Range Interpretation Comments POC-GLUCOSE METER < mg/dL 70-110 LL OUTSIDE ME ASURING ([facility]) (test code = [facility] 1538) Test/TESTED AT [address] [address] POCT-GLUCOSE [id number] 21:30:00 Test Item Value Reference Range Interpretation Comments POC-GLUCOSE METER 184 mg/dL 70-110 H TESTED AT [place] [address] ([facility]) (test code = [facility] 1538) [address] POCT-GLUCOSE [id number] 18:56:00 Test Item Value Reference Range Interpretation Comments POC-GLUCOSE METER 128 mg/dL 70-110 H TESTED AT [place] [address] ([facility]) (test code = [facility] 1538) [address] POCT-GLUCOSE [id number] 15:23:00 Test Item Value Reference Range Interpretation Comments POC-GLUCOSE METER 41 mg/dL 70-110 L Will Repea t Test/TESTED ([facility]) (test code = AT [address] [address]) [facility] [address] POCT-GLUCOSE [id number] 13:56:00 Test Item Value Reference Range Interpretation Comments POC-GLUCOSE METER 105 mg/dL 70-110 TESTED AT [place] [address] ([facility]) (test code = [facility] 1538) [address] POCT-GLUCOSE [id number] 07:40:00 Test Item Value Reference Range Interpretation Comments POC-GLUCOSE METER 321 mg/dL 70-110 H Will Repea t Test/TESTED (SIMI) (test code = AT [facility] [address] [place] [address] 1538) [facility] 7[address] 0 [id number] 06:19:00 Test Item Value Reference Range Interpretation Comments BLOOD UREA NITROGEN (KIAKER) (test 13 mg/dL 05-14 code = 354) [id number] 06:19:00 Test Item Value Reference Range Interpretation Comments CREATININE (BEAKER) 0.77 mg/dL 0.57-1.25 (test code = 358) EGFR ([facility]) (test 110 mL/min/1.73 ESTIM ATED GFR IS code = 1092) sq m NOT ACCURATE CREATININE CLEARANCE IN PREDICTING GLOMERULAR FILTRATION RATE . ESTIMATED GFR I S NOT APPLICABLE FOR DIALYSIS PATIEN TS. POCT-GLUCOSE [id number] 21:13:00 Test Item Value Reference Range Interpretation Comments POC-GLUCOSE METER 328 mg/dL 70-110 H TESTED AT [place] [address] ([facility]) (test code = NAOMIOR Ciro [place] [id number]) [address] POCT-GLUCOSE [id number] 16:33:00 Test Item Value Reference Range Interpretation Comments POC-GLUCOSE METER 309 mg/dL 70-110 H TESTED AT [place] [address] ([facility]) (test code = PAUL Tanner [place] [address]) [address] [id number] 12:59:00 Test Item Value Reference Range Interpretation Comments BLOOD UREA NITROGEN (KIAKER) (test 11 mg/dL 05-14 code = 354) [id number] 12:59:00 Test Item Value Reference Range Interpretation Comments CREATININE (AKER) 0.93 mg/dL 0.57-1.25 (test code = 358) EGFR ([facility]) (test 88 mL/min/1.73 ESTIMA MAGDALENO GFR IS code = 1092) sq m NOT ACCURATE CREATININE CLEARANCE IN PREDICTING GLOMERULAR FILTRATION RATE . ESTIMATED GFR I S NOT APPLICABLE FOR DIALYSIS PATIEN TS. POCT-GLUCOSE [id number] 12:45:00 Test Item Value Reference Range Interpretation Comments POC-GLUCOSE METER 206 mg/dL 70-110 H TESTED AT [place] [address] ([facility]) (test code = PAUL Tanner [facility] 1538) [address] BASIC METABOLIC [id number] 10:43:00 Test Item Value Reference Range Interpretation Comments SODIUM (BEAKER) 136 meq/L 136-145 (test code = 381) POTASSIUM (BEAKER) 4.0 meq/L 3.5-5.1 (test code = 379) CHLORIDE (BEAKER) 100 meq/L 98-107 (test code = 382) CO2 (BEAKER) (test 25 meq/L 22-29 code = 355) BLOOD UREA NITROGEN 10 mg/dL 7-21 (BEAKER) (test code = 354) CREATININE (BEAKER) 0.88 mg/dL 0.57-1.25 (test code = 358) GLUCOSE RANDOM 440 mg/dL 70-105 HH (BEAKER) (test code = 652) CALCIUM (BEAKER) 9.4 mg/dL 8.4-10.2 (test code = 697) EGFR (BEAKER) (test 94 mL/min/1.73 ESTIMA MAGDALENO GFR IS code = 1092) sq m NOT ACCURATE CREATININE CLEARANCE IN PREDICTING GLOMERULAR FILTRATION RATE . ESTIMATED GFR I S NOT APPLICABLE FOR DIALYSIS PATIEN TS. KETONE, [id number] 10:27:00 Test Item Value Reference Range Interpretation Comments KETONES, BLOOD (BEAKER) (test code 0.1 mmol/L <0.4 = 1103) POCT-GLUCOSE [id number] 09:46:00 Test Item Value Reference Range Interpretation Comments POC-GLUCOSE METER 468 mg/dL 70-110 HH TESTED AT [place] [address] ([facility]) (test code = PAUL Tanner [place] [address]) [address] POCT-GLUCOSE [id number] 09:06:00 Test Item Value Reference Range Interpretation Comments POC-GLUCOSE METER 447 mg/dL 70-110 HH Will Repea t Test/TESTED ([facility]) (test code = AT [place] [address] [address]ANO [facility]) [facility] [address] 0 POCT-GLUCOSE [id number] 04:35:00 Test Item Value Reference Range Interpretation Comments POC-GLUCOSE METER 430 mg/dL 70-110 HH Notified R N MD/TESTED ([facility]) (test code = AT [place] [address]) [facility] 7[address] 0 POCT-GLUCOSE [id number] 00:48:00 Test Item Value Reference Range Interpretation Comments POC-GLUCOSE METER 481 mg/dL 70-110 HH Notified R Collin STAPLETON/TESTED (BEAKER) (test code = AT [facility] [address]) [facility] [address] SPIN/CONCENTRATION [id number] 00:21:00 Test Item Value Reference Range Interpretation Comments CONCENTRATION CHARGED (BEAKER) (test Done code = 2657) POCT-GLUCOSE [id number] 22:01:00 Test Item Value Reference Range Interpretation Comments POC-GLUCOSE METER > mg/dL 70-110 HH OUTSIDE ME ASURING (BEAKER) (test code RANGENot ified JORDON MD/TESTED = 1538) AT [facility] [address] [place] [address] 0 RESPIRATORY PANEL [id number] 20:48:00 Test Item Value Reference Range Interpretation Comments HUMAN METAPNEUMOVIRUS Not detected Not detected, (BEAKER) (test code = 2683) Equivocal RHINOVIRUS (BEAKER) (test Not detected Not detected, code = 2684) Equivocal INFLUENZA A (BEAKER) (test Not detected Not detected, code = 2685) Equivocal INFLUENZA A (NO SUBTYPE) Not detected, (test code = 3606) Equivocal INFLUENZA A SUBTYPE H1 Not detected, (BEAKER) (test code = 2686) Equivocal INFLUENZA A SUBTYPE H3 Not detected, (BEAKER) (test code = 2687) Equivocal INFLUENZA A SUBTYPE H1-2009 Not detected, (BEAKER) (test code = 3198) Equivocal INFLUENZA B (BEAKER) (test Not detected Not detected, code = 2688) Equivocal RESPIRATORY SYNCYTIAL VIRUS Not detected Not detected, (BEAKER) (test code = 3199) Equivocal PARAINFLUENZA VIRUS 1 Not detected Not detected, (BEAKER) (test code = 2691) Equivocal PARAINFLUENZA VIRUS 2 Not detected Not detected, (BEAKER) (test code = 2692) Equivocal PARAINFLUENZA VIRUS 3 Not detected Not detected, (BEAKER) (test code = 2693) Equivocal PARAINFLUENZA VIRUS 4 Not detected Not detected, (BEAKER) (test code = 3200) Equivocal ADENOVIRUS (BEAKER) (test Not detected Not detected, code = 2694) Equivocal CORONAVIRUS 229E (BEAKER) Not detected Not detected, (test code = 3201) Equivocal CORONAVIRUS HKU1 (BEAKER) Not detected Not detected, (test code = 3202) Equivocal CORONAVIRUS NL63 (BEAKER) Not detected Not detected, (test code = 3203) Equivocal CORONAVIRUS OC43 (BEAKER) Not detected Not detected, (test code = 3204) Equivocal BORDETELLA PERTUSSIS Not detected Not detected, (BEAKER) (test code = 3205) Equivocal CHLAMYDOPHILA PNEUMONIAE Not detected Not detected, (BEAKER) (test code = 3206) Equivocal MYCOPLASMA PNEUMONIAE Not detected Not detected, (BEAKER) (test code = 3207) Equivocal Other viruses and bacteria not targeted by this PCR panel cannot be excluded; therefore clinical correlation and follow up of serology, culture results, and other molecular studies is required. The results are not intended to be used as the sole means for clinical diagnosis or patient management decisions. This sample was tested at the [facility] Molecular Diagnostics Laboratory using the Spinal SimplicityArray Respiratory Panel. It is FDA cleared and has been verified and approved by the [facility] Molecular Diagnostics Laboratory for clinical use on nasal swab specimens. It is not FDA-cleared for use on bronchial wash/lavage samples. However, for this sample type, validation was performed and test characteristics were determined and approved, by [facility] for clinical use under the Clinical Laboratory Improvement Amendments (CLIA) of 1988 requirements. Therefore, FDA clearance isnot required. This laboratory is CLIA- certified and [employer] [place] [employer] (CAP)-accredited to perform high complexity testing.POCT-GLUCOSE [id number] 18:50:00 Test Item Value Reference Range Interpretation Comments POC-GLUCOSE METER > mg/dL 70-110 HH OUTSIDE ME ASURING (BEAKER) (test code RANGETES MAGDALENO AT [place] [address] = 1538) [facility] [address] POCT-GLUCOSE [id number] 13:49:00 Test Item Value Reference Range Interpretation Comments POC-GLUCOSE METER > mg/dL 70-110 HH OUTSIDE ME ASURING (BEAKER) (test code RANGETES MAGDALENO AT [place] [address] = 1538) [facility] [address] HEMOGLOBIN [id number] 09:49:00 Test Item Value Reference Range Interpretation Comments HEMOGLOBIN A1C (SIMI) (test code = 12.9 % 4.3-6.1 H 368) POCT-GLUCOSE [id number] 08:18:00 Test Item Value Reference Range Interpretation Comments POC-GLUCOSE METER 301 mg/dL 70-[address] [facility] 6720 (BEAKER) (test code = [place] 1538) [address] URINALYSIS [id number] 06:31:00 Test Item Value Reference Range Interpretation Comments RBC UA (BEAKER) (test code = 519) 2 /HPF WBC UA (BEAKER) (test code = 520) 4 /HPF BACTERIA (BEAKER) (test code = 517) Rare MUCUS (BEAKER) (test code = 1574) Rare SQUAMOUS EPITHELIAL (BEAKER) (test 4 /HPF code = 516) YEAST (BEAKER) (test code = 1585) Few URINALYSIS WITH MICROSCOPIC IF [id number] 06:24:00 Test Item Value Reference Range Interpretation Comments COLOR (BEAKER) (test code = 470) Light Yellow CLARITY (BEAKER) (test code = Clear 469) SPECIFIC GRAVITY UA (BEAKER) 1.014 1.001-1.035 (test code = 468) PH UA (BEAKER) (test code = 467) 6.5 5.0-8.0 PROTEIN UA (BEAKER) (test code = 30 mg/dL Negative A 464) GLUCOSE UA (BEAKER) (test code = >1000 mg/dL Negative A 365) KETONES UA (BEAKER) (test code = Negative Negative 371) BILIRUBIN UA (BEAKER) (test code Negative Negative = 462) BLOOD UA (BEAKER) (test code = Trace Negative A 461) NITRITE UA (BEAKER) (test code = Negative Negative 465) LEUKOCYTE ESTERASE UA (BEAKER) Negative Negative (test code = 466) UROBILINOGEN UA (BEAKER) (test 0.2 mg/dL 0.2-1.0 code = 463) SOURCE(BEAKER) (test code = 2795) COMPREHENSIVE METABOLIC [id number] 05:21:00 Test Item Value Reference Range Interpretation Comments TOTAL PROTEIN 7.0 gm/dL 6.0-8.3 Specimen sligh tly (BEAKER) (test code = hemoly zed 770) ALBUMIN (BEAKER) 2.7 g/dL 3.5-5.0 L Specimen sl ightly (test code = 1145) hemolyzed ALKALINE PHOSPHATASE 164 U/L 40-150 H (BEAKER) (test code = 346) BILIRUBIN TOTAL 0.1 mg/dL 0.2-1.2 L Specimen sli ghtly (BEAKER) (test code = hemoly zed 377) SODIUM (BEAKER) (test 132 meq/L 136-145 L code = 381) POTASSIUM (BEAKER) 4.8 meq/L 3.5-5.1 Specimen slightly (test code = 379) hemolyzed CHLORIDE (BEAKER) 100 meq/L 98-107 (test code = 382) CO2 (BEAKER) (test 23 meq/L 22-29 code = 355) BLOOD UREA NITROGEN 6 mg/dL 7-21 L (BEAKER) (test code = 354) CREATININE (BEAKER) 0.75 mg/dL 0.57-1.25 Specimen slightly (test code = 358) hemolyzed GLUCOSE RANDOM 468 mg/dL 70-105 HH (BEAKER) (test code = 652) CALCIUM (BEAKER) 8.1 mg/dL 8.4-10.2 L (test code = 697) AST (SGOT) (BEAKER) 20 U/L 5-34 Specimen slightly (test code = 353) hemolyzed ALT (SGPT) (BEAKER) 11 U/L 6-55 Specimen slightly (test code = 347) hemolyzed EGFR (BEAKER) (test 113 ESTIMATE D GFR IS code = 1092) mL/min/1.73 sq NOT ACCURA TE m CREATININE CLEARANCE IN PREDICTING GLOMERULAR FILTRATION RATE . ESTIMATED GFR I S NOT APPLICABLE FOR DIALYSIS PATIEN TS. [id number] 05:05:00 Test Item Value Reference Range Interpretation Comments MAGNESIUM (BEAKER) 1.4 mg/dL 1.6-2.6 L Specimen slightly (test code = 627) hemolyzed [id number] 05:05:00 Test Item Value Reference Range Interpretation Comments PHOSPHORUS (BEAKER) 3.9 mg/dL 2.3-4.7 Specimen slightly (test code = 604) hemolyzed [id number] 05:05:00 Test Item Value Reference Range Interpretation Comments BLOOD UREA NITROGEN (BEAKER) (test 6 mg/dL 7-21 L code = 354) [id number] 05:05:00 Test Item Value Reference Range Interpretation Comments CREATININE (BEAKER) 0.75 mg/dL 0.57-1.25 Specimen slightly (test code = 358) hemolyzed EGFR (BEAKER) (test 113 mL/min/1.73 ESTIM ATED GFR IS code = 1092) sq m NOT ACCURATE CREATININE CLEARANCE IN PREDICTING GLOMERULAR FILTRATION RATE . ESTIMATED GFR I S NOT APPLICABLE FOR DIALYSIS PATIEN TS. GAMMA GLUTAMYL TRANSFERASE (GGT)[id number] 05:05:00 Test Item Value Reference Range Interpretation Comments GAMMA GLUTAMYL 29 U/L 9-64 Specimen slig htly TRANSFERASE (BEAKER) hemolyz ed (test code = 364) POCT-GLUCOSE [id number] 04:43:00 Test Item Value Reference Range Interpretation Comments POC-GLUCOSE METER 493 mg/dL 70-110 Notified R N MD/TESTED (BEAKER) (test code = AT [facility] [address] [facility] 0022) [place] [address] CBC W/PLT COUNT & AUTO [id number] 04:15:00 Test Item Value Reference Range Interpretation Comments WHITE BLOOD CELL COUNT (BEAKER) 9.2 K/ L 3.5-10.5 (test code = 775) RED BLOOD CELL COUNT (BEAKER) 4.24 M/ L 3.93-5.22 (test code = 761) HEMOGLOBIN (BEAKER) (test code = 11.0 GM/DL 11.2-15.7 L 410) HEMATOCRIT (BEAKER) (test code = 37.0 % 34.1-44.9 411) MEAN CORPUSCULAR VOLUME (BEAKER) 87.3 fL 79.4-94.8 (test code = 753) MEAN CORPUSCULAR HEMOGLOBIN 25.9 pg 25.6-32.2 (BEAKER) (test code = 751) MEAN CORPUSCULAR HEMOGLOBIN CONC 29.7 GM/DL 32.2-35.5 L (BEAKER) (test code = 752) RED CELL DISTRIBUTION WIDTH 14.9 % 11.7-14.4 H (BEAKER) (test code = 412) PLATELET COUNT (BEAKER) (test 418 K/CU MM 150-450 code = 756) MEAN PLATELET VOLUME (BEAKER) 10.8 fL 9.4-12.3 (test code = 754) NUCLEATED RED BLOOD CELLS 0 /100 WBC 0-0 (BEAKER) (test code = 413) NEUTROPHILS RELATIVE PERCENT 88 % (BEAKER) (test code = 429) LYMPHOCYTES RELATIVE PERCENT 8 % (BEAKER) (test code = 430) MONOCYTES RELATIVE PERCENT 2 % (BEAKER) (test code = 431) EOSINOPHILS RELATIVE PERCENT 1 % (BEAKER) (test code = 432) BASOPHILS RELATIVE PERCENT 0 % (BEAKER) (test code = 437) NEUTROPHILS ABSOLUTE COUNT 8.13 K/ L 1.56-6.13 H (BEAKER) (test code = 670) LYMPHOCYTES ABSOLUTE COUNT 0.73 K/ L 1.18-3.74 L (BEAKER) (test code = 414) MONOCYTES ABSOLUTE COUNT (BEAKER) 0.22 K/ L 0.24-0.36 L (test code = 415) EOSINOPHILS ABSOLUTE COUNT 0.11 K/ L 0.04-0.36 (BEAKER) (test code = 416) BASOPHILS ABSOLUTE COUNT (BEAKER) 0.03 K/ L 0.01-0.08 (test code = 417) IMMATURE GRANULOCYTES-RELATIVE 0 % 0-1 PERCENT (BEAKER) (test code = 2801) POCT-LACTIC ACID, [id number] 21:07:00 Test Item Value Reference Range Interpretation Comments POC-LACTIC ACID, 1.5 mmol/L 0.9-1.7 TESTED AT [facility] [address] (BEAKER) (test [place] code = 2805) [address] RAD, CHEST, 2 [id number] 20:59:00Reason for exam:->SHORTNESS OF BREATHShould this be performed at the bedside?->NoIs the patient ?->UnknownFINAL REPORT Chest, 2 views, 09/22/2018 8:22 PM. History: Shortness of breath. Comparison: 08/15/2018. Discussion: The cardiomediastinal silhouette and pulmonary vasculature are within normal limits. Bilateral interstitial opacities with upper lobe predominance is unchanged. No new focal consolidation or effusion. Right IJ Port-A-Cath is unchanged in position. There are no acute osseous abnormalities. The soft tissues are unremarkable. IMPRESSION: Findings consistent with fi brosis. No acute cardiopulmonary abnormality. Signed: Jerald [place] Verified Date/Time: 09/22/2018 20:59:18 Reading Location: [facility] B1 [id number] Consult Reading Room TROPONIN [id number] 20:13:00 Test Item Value Reference Range Interpretation Comments TROPONIN I (BEAKER) (test code = 397) < ng/mL 0.00-0.03 [id number] 20:07:00 Test Item Value Reference Range Interpretation Comments MAGNESIUM (BEAKER) (test code = 1.7 mg/dL 1.6-2.6 627) COMPREHENSIVE METABOLIC [id number] 20:07:00 Test Item Value Reference Range Interpretation Comments TOTAL PROTEIN 6.6 gm/dL 6.0-8.3 (BEAKER) (test code = 770) ALBUMIN (BEAKER) 2.7 g/dL 3.5-5.0 L (test code = 1145) ALKALINE PHOSPHATASE 151 U/L 40-150 H (BEAKER) (test code = 346) BILIRUBIN TOTAL 0.1 mg/dL 0.2-1.2 L (BEAKER) (test code = 377) SODIUM (BEAKER) (test 138 meq/L 136-145 code = 381) POTASSIUM (BEAKER) 4.0 meq/L 3.5-5.1 (test code = 379) CHLORIDE (BEAKER) 105 meq/L 98-107 (test code = 382) CO2 (BEAKER) (test 27 meq/L 22-29 code = 355) BLOOD UREA NITROGEN 6 mg/dL 7-21 L (BEAKER) (test code = 354) CREATININE (BEAKER) 0.67 mg/dL 0.57-1.25 (test code = 358) GLUCOSE RANDOM 113 mg/dL 70-105 H (BEAKER) (test code = 652) CALCIUM (BEAKER) 8.5 mg/dL 8.4-10.2 (test code = 697) AST (SGOT) (BEAKER) 23 U/L 5-34 (test code = 353) ALT (SGPT) (BEAKER) 11 U/L 6-55 (test code = 347) EGFR (BEAKER) (test 129 ESTIMATE D GFR IS code = 1092) mL/min/1.73 sq NOT ACCURA TE m CREATININE CLEARANCE IN PREDICTING GLOMERULAR FILTRATION RATE . ESTIMATED GFR I S NOT APPLICABLE FOR DIALYSIS PATIEN TS. [id number] 20:07:00 Test Item Value Reference Range Interpretation Comments LIPASE (BEAKER) (test code = 749) < U/L 8-78 L [id number] 20:03:00 Test Item Value Reference Range Interpretation Comments PROTIME (BEAKER) (test code = 14.1 seconds 11.7-14.7 759) INR (BEAKER) (test code = 370) 1.1 <=5.9 PARTIAL THROMBOPLASTIN TIME 34.3 seconds 22.5-36.0 (BEAKER) (test code = 760) RECOMMENDED COUMADIN/WARFARIN INR THERAPY RANGESSTANDARD DOSE: 2.0 - 3.0 Includes: PROPHYLAXIS forvenous thrombosis, systemic embolization; TREATMENT for venous thrombosis and/or pulmonary embolus.HIGH RISK: Target INR is 2.5-3.5 for patients with mechanical heart valves.CBC W/PLT COUNT & AUTO DIFFERENTIAL 2018-09-22 19:57:00 Test Item Value Reference Range Interpretation Comments WHITE BLOOD CELL COUNT (BEAKER) 11.7 K/ L 3.5-10.5 H (test code = 775) RED BLOOD CELL COUNT (BEAKER) 4.08 M/ L 3.93-5.22 (test code = 761) HEMOGLOBIN (BEAKER) (test code = 10.7 GM/DL 11.2-15.7 L 410) HEMATOCRIT (BEAKER) (test code = 35.5 % 34.1-44.9 411) MEAN CORPUSCULAR VOLUME (BEAKER) 87.0 fL 79.4-94.8 (test code = 753) MEAN CORPUSCULAR HEMOGLOBIN 26.2 pg 25.6-32.2 (BEAKER) (test code = 751) MEAN CORPUSCULAR HEMOGLOBIN CONC 30.1 GM/DL 32.2-35.5 L (BEAKER) (test code = 752) RED CELL DISTRIBUTION WIDTH 14.9 % 11.7-14.4 H (BEAKER) (test code = 412) PLATELET COUNT (BEAKER) (test 416 K/CU MM 150-450 code = 756) MEAN PLATELET VOLUME (BEAKER) 10.3 fL 9.4-12.3 (test code = 754) NUCLEATED RED BLOOD CELLS 0 /100 WBC 0-0 (BEAKER) (test code = 413) NEUTROPHILS RELATIVE PERCENT 71 % (BEAKER) (test code = 429) LYMPHOCYTES RELATIVE PERCENT 17 % (BEAKER) (test code = 430) MONOCYTES RELATIVE PERCENT 9 % (BEAKER) (test code = 431) EOSINOPHILS RELATIVE PERCENT 2 % (BEAKER) (test code = 432) BASOPHILS RELATIVE PERCENT 0 % (BEAKER) (test code = 437) NEUTROPHILS ABSOLUTE COUNT 8.30 K/ L 1.56-6.13 H (BEAKER) (test code = 670) LYMPHOCYTES ABSOLUTE COUNT 2.01 K/ L 1.18-3.74 (BEAKER) (test code = 414) MONOCYTES ABSOLUTE COUNT (BEAKER) 1.00 K/ L 0.24-0.36 H (test code = 415) EOSINOPHILS ABSOLUTE COUNT 0.26 K/ L 0.04-0.36 (BEAKER) (test code = 416) BASOPHILS ABSOLUTE COUNT (BEAKER) 0.05 K/ L 0.01-0.08 (test code = 417) IMMATURE GRANULOCYTES-RELATIVE 0 % 0-1 PERCENT (BEAKER) (test code = 2801) FUNGUS CULTURE + [id number] 11:38:00 Test Item Value Reference Range Interpretation Comments CULTURE (BEAKER) A 1 out of 3 media (test code = 1095) Penicilli um speciesThis is a corrected organism result. Previou s result was Mold on 09/2018 at 0812 LABORER FUNGUS SMEAR (BEAKER) 2+ yeast (test code = 1406) CF RESPIRATORY [id number] 15:08:00 Test Item Value Reference Range Interpretation Comments CULTURE (BEAKER) PSEUDOMONAS A 4+ Pseudomo viki (test code = 1095) SPECIES species Amikacin (test code Susceptible 0-16 S = 1) , Resistant <0 or >16 Aztreonam (test Susceptible 0-8 , S code = 32) Resistant <0 or >8 Cefepime (test code Susceptible 0-8 , S = 51) Resistant <0 or >8 Ceftazidime (test Susceptible 0-8 , S code = 27) Resistant <0 or >8 Ciprofloxacin (test Susceptible 0-1 , R code = 7) Resistant <0 or >1 Gentamicin (test Susceptible 0-4 , R code = 18) Resistant <0 or >4 Levofloxacin (test Susceptible 0-2 , R code = 22) Resistant <0 or >2 Meropenem (test Susceptible 0-4 , S code = 34) Resistant <0 or >4 Piperacillin + Susceptible 0-16 S Tazobactam (test , Resistant <0 or code = 29) >16 Tobramycin (test Susceptible 0-4 , S code = 25) Resistant <0 or >4 CULTURE (AKER) PSEUDOMONAS A 4+ Pseudomo viki (test code = 1095) AERUGINOSA aeruginos a (MUCOID-PHENOTYPE (Mucoid-ph enotype ) )of a second ty pe Amikacin (test code Susceptible 0-16 S = 1) , Resistant <0 or >16 Aztreonam (test Susceptible 0-8 , S code = 32) Resistant <0 or >8 Cefepime (test code Susceptible 0-8 , S = 51) Resistant <0 or >8 Ceftazidime (test Susceptible 0-8 , S code = 27) Resistant <0 or >8 Ciprofloxacin (test Susceptible 0-1 , R code = 7) Resistant <0 or >1 Gentamicin (test Susceptible 0-4 , S code = 18) Resistant <0 or >4 Levofloxacin (test Susceptible 0-2 , R code = 22) Resistant <0 or >2 Meropenem (test Susceptible 0-2 , R code = 34) Resistant <0 or >2 Piperacillin (test Susceptible 0-16 S code = 24) , Resistant <0 or >16 Piperacillin + Susceptible 0-16 S Tazobactam (test , Resistant <0 or code = 29) >16 Tobramycin (test Susceptible 0-4 , S code = 25) Resistant <0 or >4 3+ Normal respiratory derick presentPOCT-GLUCOSE [id number] 13:25:00 Test Item Value Reference Range Interpretation Comments POC-GLUCOSE METER 178 mg/dL 70-[address] [facility] 67[address] ([facility]) (test code = [place] 1538) [address] [id number] 11:51:00 Test Item Value Reference Range Interpretation Comments POTASSIUM (BEAKER) (test code = 4.6 meq/L 3.5-5.1 379) BASIC METABOLIC [id number] 10:31:00 Test Item Value Reference Range Interpretation Comments SODIUM (BEAKER) 136 meq/L 136-145 (test code = 381) POTASSIUM (BEAKER) 5.6 meq/L 3.5-5.1 H (test code = 379) CHLORIDE (BEAKER) 95 meq/L 98-107 L (test code = 382) CO2 (BEAKER) (test 36 meq/L 22-29 H code = 355) BLOOD UREA NITROGEN 20 mg/dL 7-21 (BEAKER) (test code = 354) CREATININE (BEAKER) 0.66 mg/dL 0.57-1.25 (test code = 358) GLUCOSE RANDOM 182 mg/dL 70-105 H (BEAKER) (test code = 652) CALCIUM (BEAKER) 8.6 mg/dL 8.4-10.2 (test code = 697) EGFR (BEAKER) (test 131 mL/min/1.73 ESTIM ATED GFR IS code = 1092) sq m NOT ACCURATE CREATININE CLEARANCE IN PREDICTING GLOMERULAR FILTRATION RATE . ESTIMATED GFR I S NOT APPLICABLE FOR DIALYSIS PATIEN TS. [id number] 10:26:00 Test Item Value Reference Range Interpretation Comments MAGNESIUM (BEAKER) (test code = 1.6 mg/dL 1.6-2.6 627) POCT-GLUCOSE [id number] 09:00:00 Test Item Value Reference Range Interpretation Comments POC-GLUCOSE METER 217 mg/dL 70-110 H TESTED AT [place] [address] ([facility]) (test code = PAUL Tanner [facility] 1538) [address] POCT-GLUCOSE [id number] 22:17:00 Test Item Value Reference Range Interpretation Comments POC-GLUCOSE METER 144 mg/dL 70-110 H TESTED AT [place] [address] ([facility]) (test code = PAUL Tanner [facility] 1538) [address] POCT-GLUCOSE [id number] 21:22:00 Test Item Value Reference Range Interpretation Comments POC-GLUCOSE METER 239 mg/dL 70-110 H TESTED AT [place] [address] ([facility]) ([facility] 1538) [address] POCT-GLUCOSE [id number] 14:57:00 Test Item Value Reference Range Interpretation Comments POC-GLUCOSE METER 175 mg/dL 70-110 H TESTED AT [place] [address] ([facility]) (test code = [facility] [place] 1538) [id number] RAD, ABDOMEN/KUB, 1 VIEW [id number] 14:55:00Reason for exam:->abdominal painFINAL REPORT EXAM: AP [...] seen. No acute osseous abnormality. Signed: Leonarda Woodallepgary Verified Date/Time: 08/24/2018 14:55:58 Reading Location: [facility] Reading Room POCT-GLUCOSE [id number] 11:49:00 Test Item Value Reference Range Interpretation Comments POC-GLUCOSE METER 137 mg/dL 70-110 H TESTED AT [place] [address] ([facility]) (test code = [facility] 1538) [id number] POCT-GLUCOSE [id number] 08:36:00 Test Item Value Reference Range Interpretation Comments POC-GLUCOSE METER 106 mg/dL 70-110 TESTED AT [place] [address] ([facility]) (test code = [facility] 1538) [address] BASIC METABOLIC [id number] 06:35:00 Test Item Value Reference Range Interpretation Comments SODIUM (BEAKER) 142 meq/L 136-145 (test code = 381) POTASSIUM (BEAKER) 3.9 meq/L 3.5-5.1 (test code = 379) CHLORIDE (BEAKER) 95 meq/L 98-107 L (test code = 382) CO2 (BEAKER) (test 39 meq/L 22-29 H code = 355) BLOOD UREA NITROGEN 22 mg/dL 7-21 H (BEAKER) (test code = 354) CREATININE (BEAKER) 0.61 mg/dL 0.57-1.25 (test code = 358) GLUCOSE RANDOM 47 mg/dL 70-105 L (BEAKER) (test code = 652) CALCIUM (BEAKER) 8.6 mg/dL 8.4-10.2 (test code = 697) EGFR (BEAKER) (test 144 mL/min/1.73 ESTIM ATED GFR IS code = 1092) sq m NOT ACCURATE CREATININE CLEARANCE IN PREDICTING GLOMERULAR FILTRATION RATE . ESTIMATED GFR I S NOT APPLICABLE FOR DIALYSIS PATIEN TS. [id number] 06:35:00 Test Item Value Reference Range Interpretation Comments MAGNESIUM (BEAKER) (test code = 1.4 mg/dL 1.6-2.6 L 627) BASIC METABOLIC [id number] 06:35:00 Test Item Value Reference Range Interpretation Comments SODIUM (BEAKER) 141 meq/L 136-145 (test code = 381) POTASSIUM (BEAKER) 3.9 meq/L 3.5-5.1 (test code = 379) CHLORIDE (BEAKER) 95 meq/L 98-107 L (test code = 382) CO2 (BEAKER) (test 39 meq/L 22-29 H code = 355) BLOOD UREA NITROGEN 22 mg/dL 7-21 H (BEAKER) (test code = 354) CREATININE (BEAKER) 0.61 mg/dL 0.57-1.25 (test code = 358) GLUCOSE RANDOM 46 mg/dL 70-105 L (BEAKER) (test code = 652) CALCIUM (BEAKER) 8.6 mg/dL 8.4-10.2 (test code = 697) EGFR (BEAKER) (test 144 mL/min/1.73 ESTIM ATED GFR IS code = 1092) sq m NOT ACCURATE CREATININE CLEARANCE IN PREDICTING GLOMERULAR FILTRATION RATE . ESTIMATED GFR I S NOT APPLICABLE FOR DIALYSIS PATIEN TS. POCT-GLUCOSE [id number] 23:02:00 Test Item Value Reference Range Interpretation Comments POC-GLUCOSE METER 142 mg/dL 70-[address] [facility] 6720 ([facility]) (test code = [place] 1538) [address] POCT-GLUCOSE [id number] 19:53:00 Test Item Value Reference Range Interpretation Comments POC-GLUCOSE METER 281 mg/dL 70-[address] [facility] 6720 ([facility]) (test code = [place] 1538) [address] POCT-GLUCOSE [id number] 15:30:00 Test Item Value Reference Range Interpretation Comments POC-GLUCOSE METER 155 mg/dL 70-[address] [facility] 6720 ([facility]) (test code = PAUL Tanner [facility] 1538) [address]474 POCT-GLUCOSE [id number] 09:06:00 Test Item Value Reference Range Interpretation Comments POC-GLUCOSE METER 97 mg/dL 70-110 TESTED AT [place] [address] ([facility]) (test code = PAUL Tanner [facility] 13285 1538) POCT-GLUCOSE [id number] 21:52:00 Test Item Value Reference Range Interpretation Comments POC-GLUCOSE METER 339 mg/dL 70-110 H Notified R Collin STAPLETON/TESTED ([facility]) (test code = AT [address] 1538) [facility] 7703 0 POCT-GLUCOSE [id number] 18:04:00 Test Item Value Reference Range Interpretation Comments POC-GLUCOSE METER > mg/dL 70-110 HH OUTSIDE ME ASURING ([facility]) (test code RANGETES MAGDALENO AT [place] [address] = 1538) [facility] [address] POCT-GLUCOSE [id number] 17:40:00 Test Item Value Reference Range Interpretation Comments POC-GLUCOSE METER 49 mg/dL 70-110 L TESTED AT [place] [address] ([facility]) (test code = PAUL Tanner [facility] [address] 1538) POCT-GLUCOSE [id number] 08:23:00 Test Item Value Reference Range Interpretation Comments POC-GLUCOSE METER 70 mg/dL 70-110 TESTED AT [place] [address] ([facility]) (test code = PAUL Tanner [facility] [address]23[address] 1538) POCT-GLUCOSE [id number] 01:59:00 Test Item Value Reference Range Interpretation Comments POC-GLUCOSE METER 161 mg/dL 70-110 H TESTED AT [place] [address] ([facility]) (test code = PAUL Tanner [facility] 1538) 84257 POCT-GLUCOSE [id number] 21:38:00 Test Item Value Reference Range Interpretation Comments POC-GLUCOSE METER 113 mg/dL 70-110 H TESTED AT [place] [address] ([facility]) (test code = PAUL Tanner [facility] 1538) 88670 POCT-GLUCOSE [id number] 17:47:00 Test Item Value Reference Range Interpretation Comments POC-GLUCOSE METER 139 mg/dL 70-110 H TESTED AT [place] [address] ([facility]) (test code = NAOMITAYO Tanner [facility] 1538) [address]485 POCT-GLUCOSE [id number] 12:13:00 Test Item Value Reference Range Interpretation Comments POC-GLUCOSE METER 172 mg/dL 70-110 H TESTED AT [place] [address] ([facility]) (test code = PAUL Tanner [place] 1538) [address] BASIC METABOLIC [id number] 09:30:00 Test Item Value Reference Range Interpretation Comments SODIUM (BEAKER) 139 meq/L 136-145 (test code = 381) POTASSIUM (BEAKER) 4.2 meq/L 3.5-5.1 (test code = 379) CHLORIDE (BEAKER) 94 meq/L 98-107 L (test code = 382) CO2 (BEAKER) (test 37 meq/L 22-29 H code = 355) BLOOD UREA NITROGEN 19 mg/dL 7-21 (BEAKER) (test code = 354) CREATININE (BEAKER) 0.59 mg/dL 0.57-1.25 (test code = 358) GLUCOSE RANDOM 101 mg/dL 70-105 (BEAKER) (test code = 652) CALCIUM (BEAKER) 8.1 mg/dL 8.4-10.2 L (test code = 697) EGFR (BEAKER) (test 149 mL/min/1.73 ESTIM ATED GFR IS code = 1092) sq m NOT ACCURATE CREATININE CLEARANCE IN PREDICTING GLOMERULAR FILTRATION RATE . ESTIMATED GFR I S NOT APPLICABLE FOR DIALYSIS PATIEN TS. POCT-GLUCOSE [id number] 08:40:00 Test Item Value Reference Range Interpretation Comments POC-GLUCOSE METER 100 mg/dL 70-110 TESTED AT [place] [address] ([facility]) (test code = PAUL Tanner [facility] 1538) 98475 POCT-GLUCOSE [id number] 01:48:00 Test Item Value Reference Range Interpretation Comments POC-GLUCOSE METER 186 mg/dL 70-110 H TESTED AT [place] [address] ([facility]) (test code = PAUL Tanner [facility] 1538) [address] BLOOD [id number] 00:00:00 Test Item Value Reference Range Interpretation Comments CULTURE ([facility]) (test No growth in 5 days code = 1095) POCT-GLUCOSE [id number] 21:54:00 Test Item Value Reference Range Interpretation Comments POC-GLUCOSE METER 232 mg/dL 70-110 H TESTED AT [place] [address] ([facility]) (test code = [facility] Ciro [facility] 1538) 08767 POCT-GLUCOSE [id number] 18:20:00 Test Item Value Reference Range Interpretation Comments POC-GLUCOSE METER 223 mg/dL 70-110 H TESTED AT [place] [address] ([facility]) (test code = [facility] 1538) 98996 POCT-GLUCOSE [id number] 10:25:00 Test Item Value Reference Range Interpretation Comments POC-GLUCOSE METER 230 mg/dL 70-110 H TESTED AT [place] [address] ([facility]) (test code = [facility] 1538) 24408 BASIC METABOLIC [id number] 08:57:00 Test Item Value Reference Range Interpretation Comments SODIUM (BEAKER) 142 meq/L 136-145 (test code = 381) POTASSIUM (BEAKER) 4.0 meq/L 3.5-5.1 (test code = 379) CHLORIDE (BEAKER) 99 meq/L 98-107 (test code = 382) CO2 (BEAKER) (test 39 meq/L 22-29 H code = 355) BLOOD UREA NITROGEN 18 mg/dL 7-21 (BEAKER) (test code = 354) CREATININE (BEAKER) 0.60 mg/dL 0.57-1.25 (test code = 358) GLUCOSE RANDOM 56 mg/dL 70-105 L (BEAKER) (test code = 652) CALCIUM (BEAKER) 8.2 mg/dL 8.4-10.2 L (test code = 697) EGFR (BEAKER) (test 146 mL/min/1.73 ESTIM ATED GFR IS code = 1092) sq m NOT ACCURATE CREATININE CLEARANCE IN PREDICTING GLOMERULAR FILTRATION RATE . ESTIMATED GFR I S NOT APPLICABLE FOR DIALYSIS PATIEN TS. POCT-GLUCOSE [id number] 08:43:00 Test Item Value Reference Range Interpretation Comments POC-GLUCOSE METER 68 mg/dL 70-110 L TESTED AT [place] [address] ([facility]) (test code = [facility] 779[address] 1538) POCT-GLUCOSE [id number] 01:17:00 Test Item Value Reference Range Interpretation Comments POC-GLUCOSE METER 160 mg/dL 70-110 H TESTED AT [place] [address] ([facility]) (test code = [facility] 1538) 44068 POCT-GLUCOSE [id number] 19:47:00 Test Item Value Reference Range Interpretation Comments POC-GLUCOSE METER 193 mg/dL 70-110 H TESTED AT [place] [id number] ([facility]) (test code = PAUL Tanner [facility] 1538) 96829 POCT-GLUCOSE [id number] 15:44:00 Test Item Value Reference Range Interpretation Comments POC-GLUCOSE METER 80 mg/dL 70-110 TESTED AT [place] [address] ([facility]) (test code = PAUL Tanner [facility] 13598 1538) POCT-GLUCOSE [id number] 14:11:00 Test Item Value Reference Range Interpretation Comments POC-GLUCOSE METER 78 mg/dL 70-110 TESTED AT [place] [address] ([facility]) (test code = PAUL Ciro [facility] [address] 1538) POCT-GLUCOSE [id number] 12:59:00 Test Item Value Reference Range Interpretation Comments POC-GLUCOSE METER 57 mg/dL 70-110 L Notified Ciro Polanco MD/TESTED AT ([facility]) (test code = [place] [address] [place] 1538) [facility] 7703 0 POCT-GLUCOSE [id number] 12:21:00 Test Item Value Reference Range Interpretation Comments POC-GLUCOSE METER 67 mg/dL 70-110 L Notified Ciro Polanco MD/TESTED AT ([facility]) (test code = [place] [address] [place] 1538) [facility] 7703 0 POCT-GLUCOSE [id number] 09:53:00 Test Item Value Reference Range Interpretation Comments POC-GLUCOSE METER 170 mg/dL 70-110 H TESTED AT [place] [address] ([facility]) (test code = PAUL Tanner [facility] 1538) 22208 POCT-GLUCOSE [id number] 08:38:00 Test Item Value Reference Range Interpretation Comments POC-GLUCOSE METER 52 mg/dL 70-110 L Notified Ciro Polanco MD/TESTED AT ([facility]) (test code = [place] [address] [place] 1538) [facility] 7703 0 BASIC METABOLIC [id number] 07:10:00 Test Item Value Reference Range Interpretation Comments SODIUM ([facility]) 140 meq/L 136-145 (test code = 381) POTASSIUM ([facility]) 3.3 meq/L 3.5-5.1 L (test code = 379) CHLORIDE (BEAKER) 97 meq/L 98-107 L (test code = 382) CO2 (BEAKER) (test 34 meq/L 22-29 H code = 355) BLOOD UREA NITROGEN 13 mg/dL 7-21 (BEAKER) (test code = 354) CREATININE (BEAKER) 0.62 mg/dL 0.57-1.25 (test code = 358) GLUCOSE RANDOM 51 mg/dL 70-105 L (BEAKER) (test code = 652) CALCIUM (BEAKER) 8.5 mg/dL 8.4-10.2 (test code = 697) EGFR (BEAKER) (test 141 mL/min/1.73 ESTIM ATED GFR IS code = 1092) sq m NOT ACCURATE CREATININE CLEARANCE IN PREDICTING GLOMERULAR FILTRATION RATE . ESTIMATED GFR I S NOT APPLICABLE FOR DIALYSIS PATIEN TS. PROTEIN, RANDOM [id number] 22:37:00 Test Item Value Reference Range Interpretation Comments PROTEIN, URINE ([facility]) (test code 235 mg/dL 0-14 H = 1569) CREATININE, RANDOM [id number] 22:35:00 Test Item Value Reference Range Interpretation Comments CREATININE URINE ([facility]) (test 84.6 mg/dL code = 375) Reference Range: No NormalsPOCT-GLUCOSE [id number] 21:41:00 Test Item Value Reference Range Interpretation Comments POC-GLUCOSE METER 292 mg/dL 70-110 H TESTED AT [place] [address] ([facility]) (test code = PAUL Tanner [facility] 1538) 54380 POCT-GLUCOSE [id number] 17:51:00 Test Item Value Reference Range Interpretation Comments POC-GLUCOSE METER 241 mg/dL 70-110 H TESTED AT [place] [address] ([facility]) (test code = PAUL Tanner [facility] 1538) 50946 POCT-GLUCOSE [id number] 12:32:00 Test Item Value Reference Range Interpretation Comments POC-GLUCOSE METER 123 mg/dL 70-110 H TESTED AT [place] [address] ([facility]) (test code = PAUL Tanner [facility] 1538) 50118 POCT-GLUCOSE [id number] 08:24:00 Test Item Value Reference Range Interpretation Comments POC-GLUCOSE METER 408 mg/dL 70-110 HH Notified R Collin STAPLETON/TESTED ([facility]) (test code = AT [place] [address]) [facility] 7703 0 [id number] 07:32:00 Test Item Value Reference Range Interpretation Comments BLOOD UREA NITROGEN ([facility]) (test 15 mg/dL 7- code = 354) [id number] 07:32:00 Test Item Value Reference Range Interpretation Comments CREATININE ([facility]) 0.73 mg/dL 0.57-1.25 (test code = 358) EGFR ([facility]) (test 117 mL/min/1.73 ESTIM ATED GFR IS code = 1092) sq m NOT ACCURATE CREATININE CLEARANCE IN PREDICTING GLOMERULAR FILTRATION RATE . ESTIMATED GFR I S NOT APPLICABLE FOR DIALYSIS PATIEN TS. POCT-GLUCOSE [id number] 21:43:00 Test Item Value Reference Range Interpretation Comments POC-GLUCOSE METER 192 mg/dL 70-110 H TESTED AT [place] [address] ([facility]) (test code = PAUL Tanner [place] [address]) [address] POCT-GLUCOSE [id number] 17:46:00 Test Item Value Reference Range Interpretation Comments POC-GLUCOSE METER 147 mg/dL 70-110 H TESTED AT [place] [address] ([facility]) (test code = PAUL Tanner [place] [address]) [address] POCT-GLUCOSE [id number] 12:38:00 Test Item Value Reference Range Interpretation Comments POC-GLUCOSE METER 203 mg/dL 70-110 H TESTED AT [place] [address] ([facility]) (test code = PAUL Tanner [place] [address]) [address] HEMOGLOBIN [id number] 11:18:00 Test Item Value Reference Range Interpretation Comments HEMOGLOBIN A1C ([facility]) (test code = 16.1 % 4.3-6.1 H 368) POCT-GLUCOSE [id number] 09:15:00 Test Item Value Reference Range Interpretation Comments POC-GLUCOSE METER 330 mg/dL 70-110 H Notified Ciro Polanco MD/TESTED ([facility]) (test code = AT [place] [address]) [place] [address] 0 [id number] 07:34:00 Test Item Value Reference Range Interpretation Comments CREATININE ([facility]) 0.83 mg/dL 0.57-1.25 Specimen slightly (test code = 358) hemolyzed EGFR ([facility]) (test 101 mL/min/1.73 ESTIM ATED GFR IS code = 1092) sq m NOT ACCURATE CREATININE CLEARANCE IN PREDICTING GLOMERULAR FILTRATION RATE . ESTIMATED GFR I S NOT APPLICABLE FOR DIALYSIS PATIEN TS. [id number] 07:34:00 Test Item Value Reference Range Interpretation Comments BLOOD UREA NITROGEN (BEAKER) (test 15 mg/dL 7-21 code = 354) POCT-GLUCOSE [id number] 01:59:00 Test Item Value Reference Range Interpretation Comments POC-GLUCOSE METER 78 mg/dL 70-110 TESTED AT [place] [address] (BEAKER) (test code = PAUL Tanner [facility] [address] 1538) BASIC METABOLIC [id number] 23:00:00 Test Item Value Reference Range Interpretation Comments SODIUM (BEAKER) 135 meq/L 136-145 L (test code = 381) POTASSIUM (BEAKER) 4.1 meq/L 3.5-5.1 (test code = 379) CHLORIDE (BEAKER) 98 meq/L 98-107 (test code = 382) CO2 (BEAKER) (test 26 meq/L 22-29 code = 355) BLOOD UREA NITROGEN 16 mg/dL 7-21 (BEAKER) (test code = 354) CREATININE (BEAKER) 1.27 mg/dL 0.57-1.25 H (test code = 358) GLUCOSE RANDOM 503 mg/dL 70-105 HH (BEAKER) (test code = 652) CALCIUM (BEAKER) 8.1 mg/dL 8.4-10.2 L (test code = 697) EGFR (BEAKER) (test 62 mL/min/1.73 ESTIMA MAGDALENO GFR IS code = 1092) sq m NOT ACCURATE CREATININE CLEARANCE IN PREDICTING GLOMERULAR FILTRATION RATE . ESTIMATED GFR I S NOT APPLICABLE FOR DIALYSIS PATIEN TS. POCT-GLUCOSE [id number] 21:22:00 Test Item Value Reference Range Interpretation Comments POC-GLUCOSE METER > mg/dL 70-110 HH OUTSIDE ME ASURING (BEAKER) (test code RANGENot ified JORDON STAPLETON/TESTED = 1538) AT [facility] [address] ZEPEDA [facility] 7703 0 RESPIRATORY PANEL [id number] 18:44:00 Test Item Value Reference Range Interpretation Comments HUMAN METAPNEUMOVIRUS Not detected Not detected, (BEAKER) (test code = 2683) Equivocal RHINOVIRUS (BEAKER) (test Not detected Not detected, code = 2684) Equivocal INFLUENZA A (BEAKER) (test Not detected Not detected, code = 2685) Equivocal INFLUENZA A (NO SUBTYPE) Not detected, (test code = 3606) Equivocal INFLUENZA A SUBTYPE H1 Not detected, (BEAKER) (test code = 2686) Equivocal INFLUENZA A SUBTYPE H3 Not detected, (BEAKER) (test code = 2687) Equivocal INFLUENZA A SUBTYPE H1-2009 Not detected, (BEAKER) (test code = 3198) Equivocal INFLUENZA B (BEAKER) (test Not detected Not detected, code = 2688) Equivocal RESPIRATORY SYNCYTIAL VIRUS Not detected Not detected, (BEAKER) (test code = 3199) Equivocal PARAINFLUENZA VIRUS 1 Not detected Not detected, (BEAKER) (test code = 2691) Equivocal PARAINFLUENZA VIRUS 2 Not detected Not detected, (BEAKER) (test code = 2692) Equivocal PARAINFLUENZA VIRUS 3 Not detected Not detected, (BEAKER) (test code = 2693) Equivocal PARAINFLUENZA VIRUS 4 Not detected Not detected, (BEAKER) (test code = 3200) Equivocal ADENOVIRUS (BEAKER) (test Not detected Not detected, code = 2694) Equivocal CORONAVIRUS 229E (BEAKER) Not detected Not detected, (test code = 3201) Equivocal CORONAVIRUS HKU1 (BEAKER) Not detected Not detected, (test code = 3202) Equivocal CORONAVIRUS NL63 (BEAKER) Not detected Not detected, (test code = 3203) Equivocal CORONAVIRUS OC43 (BEAKER) Not detected Not detected, (test code = 3204) Equivocal BORDETELLA PERTUSSIS Not detected Not detected, (BEAKER) (test code = 3205) Equivocal CHLAMYDOPHILA PNEUMONIAE Not detected Not detected, (BEAKER) (test code = 3206) Equivocal MYCOPLASMA PNEUMONIAE Not detected Not detected, (BEAKER) (test code = 3207) Equivocal Other viruses and bacteria not targeted by this PCR panel cannot be excluded; therefore clinical correlation and follow up of serology, culture results, and other molecular studies is required. The results are not intended to be used as the sole means for clinical diagnosis or patient management decisions. This sample was tested at the [facility] Molecular Diagnostics Laboratory using the [employer] Respiratory Panel. It is FDA cleared and has been verified and approved by the [facility] Molecular Diagnostics Laboratory for clinical use on nasal swab specimens. It is not FDA-cleared for use on bronchial wash/lavage samples. However, for this sample type, validation was performed and test characteristics were determined and approved, by [facility] Molecular Diagnostics laboratory for clinical use under the Clinical Laboratory Improvement Amendments (CLIA) of 1988 requirements. Therefore, FDA clearance isnot required. This laboratory is CLIA- certified and [employer] ([employer])-accredited to perform high complexity testing.POCT-GLUCOSE [id number] 18:36:00 Test Item Value Reference Range Interpretation Comments POC-GLUCOSE METER > mg/dL 70-110 HH OUTSIDE [place] ASURING ([facility]) (test code RANGETES MAGDALENO AT [place] [address] = 1538) [facility] [address] SPIN/CONCENTRATION [id number] 12:46:00 Test Item Value Reference Range Interpretation Comments CONCENTRATION CHARGED ([facility]) (test Done code = 2657) POCT-GLUCOSE [id number] 12:21:00 Test Item Value Reference Range Interpretation Comments POC-GLUCOSE METER 286 mg/dL 70-110 H TESTED AT [place] [address] ([facility]) (test code = [facility] 1538) [address] POCT-GLUCOSE [id number] 08:25:00 Test Item Value Reference Range Interpretation Comments POC-GLUCOSE METER 295 mg/dL 70-110 H TESTED AT [place] [address] ([facility]) (test code = [facility] 1538) [address] [id number] 07:37:00 Test Item Value Reference Range Interpretation Comments BLOOD UREA NITROGEN ([facility]) (test 5 mg/dL 7-21 L code = 354) [id number] 07:37:00 Test Item Value Reference Range Interpretation Comments CREATININE ([facility]) 0.64 mg/dL 0.57-1.25 Specimen slightly (test code = 358) hemolyzed EGFR ([facility]) (test 136 mL/min/1.73 ESTIM ATED GFR IS code = 1092) sq m NOT ACCURATE CREATININE CLEARANCE IN PREDICTING GLOMERULAR FILTRATION RATE . ESTIMATED GFR I S NOT APPLICABLE FOR DIALYSIS PATIEN TS. POCT-GLUCOSE [id number] 06:33:00 Test Item Value Reference Range Interpretation Comments POC-GLUCOSE METER 44 mg/dL 70-110 L Notified R Collin STAPLETON/TESTED AT (BEAKER) (test code = [facility] [address] [facility] 1538) [facility] 7703 0 POCT-GLUCOSE [id number] 03:10:00 Test Item Value Reference Range Interpretation Comments POC-GLUCOSE METER 406 mg/dL 70-110 Notified Ciro Polanco MD/TESTED (BEAKER) (test code = AT [facility] [address] [facility] 1538) [facility] 7703 0 RAD, CHEST, 2 [id number] 22:01:00Reason for exam:->COUGHReason for exam:->SHORTNESS OF BREATHShould this be performed [...] MDReport Verified Date/Time: 08/15/2018 22:01:46 Reading Location: [facility] Mammo Reading Room PREGNANCY SCREEN, [id number] 21:12:00 Test Item Value Reference Range Interpretation Comments TEST URINE (BEAKER) (test Negative code = 583) COMPREHENSIVE METABOLIC [id number] 17:43:00 Test Item Value Reference Range Interpretation Comments TOTAL PROTEIN 7.0 gm/dL 6.0-8.3 (BEAKER) (test code = 770) ALBUMIN (BEAKER) 2.5 g/dL 3.5-5.0 L (test code = 1145) ALKALINE PHOSPHATASE 162 U/L 40-150 H (BEAKER) (test code = 346) BILIRUBIN TOTAL 0.2 mg/dL 0.2-1.2 (BEAKER) (test code = 377) SODIUM (BEAKER) (test 141 meq/L 136-145 code = 381) POTASSIUM (BEAKER) 4.0 meq/L 3.5-5.1 (test code = 379) CHLORIDE (BEAKER) 102 meq/L 98-107 (test code = 382) CO2 (BEAKER) (test 30 meq/L 22-29 H code = 355) BLOOD UREA NITROGEN 5 mg/dL 7-21 L (BEAKER) (test code = 354) CREATININE (BEAKER) 0.69 mg/dL 0.57-1.25 (test code = 358) GLUCOSE RANDOM 321 mg/dL 70-105 H (BEAKER) (test code = 652) CALCIUM (BEAKER) 9.2 mg/dL 8.4-10.2 (test code = 697) AST (SGOT) (BEAKER) 12 U/L 5-34 (test code = 353) ALT (SGPT) (BEAKER) 8 U/L 6-55 (test code = 347) EGFR (BEAKER) (test 125 ESTIMATE D GFR IS code = 1092) mL/min/1.73 sq NOT ACCURA TE m CREATININE CLEARANCE IN PREDICTING GLOMERULAR FILTRATION RATE . ESTIMATED GFR I S NOT APPLICABLE FOR DIALYSIS PATIEN TS. POCT-LACTIC ACID, [id number] 17:20:00 Test Item Value Reference Range Interpretation Comments POC-LACTIC ACID, 1.4 mmol/L 0.9-1.7 TESTED AT [facility] [address] (BEAKER) (test [place] code = 2805) [address] CBC W/PLT COUNT & AUTO [id number] 17:20:00 Test Item Value Reference Range Interpretation Comments WHITE BLOOD CELL COUNT (BEAKER) 8.5 K/ L 3.5-10.5 (test code = 775) RED BLOOD CELL COUNT (BEAKER) 4.40 M/ L 3.93-5.22 (test code = 761) HEMOGLOBIN (BEAKER) (test code = 11.3 GM/DL 11.2-15.7 410) HEMATOCRIT (BEAKER) (test code = 37.6 % 34.1-44.9 411) MEAN CORPUSCULAR VOLUME (BEAKER) 85.5 fL 79.4-94.8 (test code = 753) MEAN CORPUSCULAR HEMOGLOBIN 25.7 pg 25.6-32.2 (BEAKER) (test code = 751) MEAN CORPUSCULAR HEMOGLOBIN CONC 30.1 GM/DL 32.2-35.5 L (BEAKER) (test code = 752) RED CELL DISTRIBUTION WIDTH 15.1 % 11.7-14.4 H (BEAKER) (test code = 412) PLATELET COUNT (BEAKER) (test 391 K/CU MM 150-450 code = 756) MEAN PLATELET VOLUME (BEAKER) 10.6 fL 9.4-12.3 (test code = 754) NUCLEATED RED BLOOD CELLS 0 /100 WBC 0-0 (BEAKER) (test code = 413) NEUTROPHILS RELATIVE PERCENT 69 % (BEAKER) (test code = 429) LYMPHOCYTES RELATIVE PERCENT 19 % (BEAKER) (test code = 430) MONOCYTES RELATIVE PERCENT 7 % (BEAKER) (test code = 431) EOSINOPHILS RELATIVE PERCENT 5 % (BEAKER) (test code = 432) BASOPHILS RELATIVE PERCENT 1 % (BEAKER) (test code = 437) NEUTROPHILS ABSOLUTE COUNT 5.83 K/ L 1.56-6.13 (BEAKER) (test code = 670) LYMPHOCYTES ABSOLUTE COUNT 1.61 K/ L 1.18-3.74 (BEAKER) (test code = 414) MONOCYTES ABSOLUTE COUNT (BEAKER) 0.56 K/ L 0.24-0.36 H (test code = 415) EOSINOPHILS ABSOLUTE COUNT 0.44 K/ L 0.04-0.36 H (BEAKER) (test code = 416) BASOPHILS ABSOLUTE COUNT (BEAKER) 0.05 K/ L 0.01-0.08 (test code = 417) IMMATURE GRANULOCYTES-RELATIVE 0 % 0-1 PERCENT (BEAKER) (test code = 2801) AFB CULTURE + [id number] 13:38:00 Test Item Value Reference Range Interpretation Comments CULTURE (BEAKER) (test No acid-fast bacilli code = 1095) isolated in 42 days AFB SMEAR (BEAKER) No acid fast bacilli (test code = 994) seen POCT-GLUCOSE [id number] 08:03:00 Test Item Value Reference Range Interpretation Comments POC-GLUCOSE METER 169 mg/dL 70-[address] [facility] [address] (BEAKER) (test code = [place] 1538) [address] BUN AND [id number] 06:31:00 Test Item Value Reference Range Interpretation Comments BLOOD UREA NITROGEN 25 mg/dL 7-21 H ([facility]) (test code = 354) CREATININE ([facility]) 0.70 mg/dL 0.57-1.25 (test code = 358) EGFR ([facility]) (test 124 mL/min/1.73 ESTIM ATED GFR IS code = 1092) sq m NOT ACCURATE CREATININE CLEARANCE IN PREDICTING GLOMERULAR FILTRATION RATE . ESTIMATED GFR I S NOT APPLICABLE FOR DIALYSIS PATIEN TS. POCT-GLUCOSE [id number] 23:55:00 Test Item Value Reference Range Interpretation Comments POC-GLUCOSE METER 179 mg/dL 70-110 H TESTED AT [place] [address] ([facility]) (test code = [employer] [facility] 1538) [address] POCT-GLUCOSE [id number] 17:30:00 Test Item Value Reference Range Interpretation Comments POC-GLUCOSE METER 216 mg/dL 70-110 H TESTED AT [place] [address] ([facility]) (test code = [employer] [place] 1538) [address] POCT-GLUCOSE [id number] 11:49:00 Test Item Value Reference Range Interpretation Comments POC-GLUCOSE METER 97 mg/dL 70-110 TESTED AT [place] [address] ([facility]) (test code = [employer] [facility] [address] 1538) POCT-GLUCOSE [id number] 08:09:00 Test Item Value Reference Range Interpretation Comments POC-GLUCOSE METER 72 mg/dL 70-110 TESTED AT [place] [address] ([facility]) (test code = [employer] [facility] [address] 1538) BUN AND [id number] 08:08:00 Test Item Value Reference Range Interpretation Comments BLOOD UREA NITROGEN 23 mg/dL 7-21 H ([facility]) (test code = 354) CREATININE ([facility]) 0.62 mg/dL 0.57-1.25 (test code = 358) EGFR ([facility]) (test 142 mL/min/1.73 ESTIM ATED GFR IS code = 1092) sq m NOT ACCURATE CREATININE CLEARANCE IN PREDICTING GLOMERULAR FILTRATION RATE . ESTIMATED GFR I S NOT APPLICABLE FOR DIALYSIS PATIEN TS. POCT-GLUCOSE [id number] 21:04:00 Test Item Value Reference Range Interpretation Comments POC-GLUCOSE METER 143 mg/dL 70-110 H TESTED AT [place] [address] ([facility]) (test code = [employer] [place] 1538) [address] POCT-GLUCOSE [id number] 17:36:00 Test Item Value Reference Range Interpretation Comments POC-GLUCOSE METER 195 mg/dL 70-[address] [facility] 6720 ([facility]) (test code = [facility] Ciro [facility] 1538) [address] POCT-GLUCOSE [id number] 12:58:00 Test Item Value Reference Range Interpretation Comments POC-GLUCOSE METER 73 mg/dL 70-110 TESTED AT [place] [address] ([facility]) (test code = [facility] Ciro [facility] [address] 1538) POCT-GLUCOSE [id number] 08:07:00 Test Item Value Reference Range Interpretation Comments POC-GLUCOSE METER 320 mg/dL 70-110 H Notified Ciro Polanco or ([facility]) (test code = Patidhaval t refused repeat 1537) test/TESTED AT [facility] [address] [facility] [address] BUN AND [id number] 07:07:00 Test Item Value Reference Range Interpretation Comments BLOOD UREA NITROGEN 25 mg/dL 7-21 H (AKER) (test code = 354) CREATININE (AKER) 0.92 mg/dL 0.57-1.25 Specimen slightly (test code = 358) hemolyzed EGFR ([facility]) (test 90 mL/min/1.73 ESTIMA MAGDALENO GFR IS code = 1092) sq m NOT ACCURATE CREATININE CLEARANCE IN PREDICTING GLOMERULAR FILTRATION RATE . ESTIMATED GFR I S NOT APPLICABLE FOR DIALYSIS PATIDHAVAL TS. CBC W/PLT COUNT & AUTO [id number] 06:10:00 Test Item Value Reference Range Interpretation Comments WHITE BLOOD CELL COUNT (BEAKER) 14.1 K/ L 3.5-10.5 H (test code = 775) RED BLOOD CELL COUNT (BEAKER) 3.56 M/ L 3.93-5.22 L (test code = 761) HEMOGLOBIN (BEAKER) (test code = 9.4 GM/DL 11.2-15.7 L 410) HEMATOCRIT (BEAKER) (test code = 32.4 % 34.1-44.9 L 411) MEAN CORPUSCULAR VOLUME (BEAKER) 91.0 fL 79.4-94.8 (test code = 753) MEAN CORPUSCULAR HEMOGLOBIN 26.4 pg 25.6-32.2 (BEAKER) (test code = 751) MEAN CORPUSCULAR HEMOGLOBIN CONC 29.0 GM/DL 32.2-35.5 L (BEAKER) (test code = 752) RED CELL DISTRIBUTION WIDTH 19.9 % 11.7-14.4 H (BEAKER) (test code = 412) PLATELET COUNT (BEAKER) (test 348 K/CU MM 150-450 code = 756) MEAN PLATELET VOLUME (BEAKER) 10.8 fL 9.4-12.3 (test code = 754) NUCLEATED RED BLOOD CELLS 0 /100 WBC 0-0 (BEAKER) (test code = 413) NEUTROPHILS RELATIVE PERCENT 81 % (BEAKER) (test code = 429) LYMPHOCYTES RELATIVE PERCENT 10 % (BEAKER) (test code = 430) MONOCYTES RELATIVE PERCENT 8 % (BEAKER) (test code = 431) EOSINOPHILS RELATIVE PERCENT 0 % (BEAKER) (test code = 432) BASOPHILS RELATIVE PERCENT 0 % (BEAKER) (test code = 437) NEUTROPHILS ABSOLUTE COUNT 11.47 K/ L 1.56-6.13 H (BEAKER) (test code = 670) LYMPHOCYTES ABSOLUTE COUNT 1.37 K/ L 1.18-3.74 (BEAKER) (test code = 414) MONOCYTES ABSOLUTE COUNT (BEAKER) 1.08 K/ L 0.24-0.36 H (test code = 415) EOSINOPHILS ABSOLUTE COUNT 0.03 K/ L 0.04-0.36 L (BEAKER) (test code = 416) BASOPHILS ABSOLUTE COUNT (BEAKER) 0.02 K/ L 0.01-0.08 (test code = 417) IMMATURE GRANULOCYTES-RELATIVE 1 % 0-1 PERCENT (BEAKER) (test code = 2801) POCT-GLUCOSE [id number] 22:03:00 Test Item Value Reference Range Interpretation Comments POC-GLUCOSE METER 96 mg/dL 70-110 TESTED AT [place] [id number] ([facility]) (test code = PAUL Tanner [facility] [address] 1538) POCT-GLUCOSE [id number] 21:57:00 Test Item Value Reference Range Interpretation Comments POC-GLUCOSE METER 67 mg/dL 70-110 L Notified R Collin STAPLETON/TESTED AT ([facility]) (test code = [facility] [address]38) [facility] [address] 0 POCT-GLUCOSE [id number] 17:48:00 Test Item Value Reference Range Interpretation Comments POC-GLUCOSE METER 210 mg/dL 70-[address] [facility] 6720 (BEAKER) (test code = PAUL Tanner [facility] 1538) [address] POCT-GLUCOSE [id number] 12:42:00 Test Item Value Reference Range Interpretation Comments POC-GLUCOSE METER 193 mg/dL 70-[address] [facility] 6720 (BEAKER) (test code = [facility] Ciro [facility] 1538) [id number] POCT-GLUCOSE [id number] 08:38:00 Test Item Value Reference Range Interpretation Comments POC-GLUCOSE METER 139 mg/dL 70-[address] [facility] 6720 (BEAKER) (test code = [facility] 1538) [address] BASIC METABOLIC [id number] 06:31:00 Test Item Value Reference Range Interpretation Comments SODIUM (BEAKER) 139 meq/L 136-145 (test code = 381) POTASSIUM (BEAKER) 4.4 meq/L 3.5-5.1 (test code = 379) CHLORIDE (BEAKER) 102 meq/L 98-107 (test code = 382) CO2 (BEAKER) (test 31 meq/L 22-29 H code = 355) BLOOD UREA NITROGEN 19 mg/dL 7-21 (BEAKER) (test code = 354) CREATININE (BEAKER) 0.77 mg/dL 0.57-1.25 (test code = 358) GLUCOSE RANDOM 264 mg/dL 70-105 H (BEAKER) (test code = 652) CALCIUM (BEAKER) 7.9 mg/dL 8.4-10.2 L (test code = 697) EGFR (BEAKER) (test 111 mL/min/1.73 ESTIM ATED GFR IS code = 1092) sq m NOT ACCURATE CREATININE CLEARANCE IN PREDICTING GLOMERULAR FILTRATION RATE . ESTIMATED GFR I S NOT APPLICABLE FOR DIALYSIS PATIEN TS. BUN AND [id number] 06:30:00 Test Item Value Reference Range Interpretation Comments BLOOD UREA NITROGEN 19 mg/dL 7-21 (BEAKER) (test code = 354) CREATININE (BEAKER) 0.77 mg/dL 0.57-1.25 (test code = 358) EGFR (BEAKER) (test 111 mL/min/1.73 ESTIM ATED GFR IS code = 1092) sq m NOT ACCURATE CREATININE CLEARANCE IN PREDICTING GLOMERULAR FILTRATION RATE . ESTIMATED GFR I S NOT APPLICABLE FOR DIALYSIS PATIEN TS. CBC W/PLT COUNT & AUTO [id number] 06:11:00 Test Item Value Reference Range Interpretation Comments WHITE BLOOD CELL COUNT (BEAKER) 14.2 K/ L 3.5-10.5 H (test code = 775) RED BLOOD CELL COUNT (BEAKER) 3.57 M/ L 3.93-5.22 L (test code = 761) HEMOGLOBIN (BEAKER) (test code = 9.4 GM/DL 11.2-15.7 L 410) HEMATOCRIT (BEAKER) (test code = 32.7 % 34.1-44.9 L 411) MEAN CORPUSCULAR VOLUME (BEAKER) 91.6 fL 79.4-94.8 (test code = 753) MEAN CORPUSCULAR HEMOGLOBIN 26.3 pg 25.6-32.2 (BEAKER) (test code = 751) MEAN CORPUSCULAR HEMOGLOBIN CONC 28.7 GM/DL 32.2-35.5 L (BEAKER) (test code = 752) RED CELL DISTRIBUTION WIDTH 20.0 % 11.7-14.4 H (BEAKER) (test code = 412) PLATELET COUNT (BEAKER) (test 352 K/CU MM 150-450 code = 756) MEAN PLATELET VOLUME (BEAKER) 10.9 fL 9.4-12.3 (test code = 754) NUCLEATED RED BLOOD CELLS 0 /100 WBC 0-0 (BEAKER) (test code = 413) NEUTROPHILS RELATIVE PERCENT 84 % (BEAKER) (test code = 429) LYMPHOCYTES RELATIVE PERCENT 8 % (BEAKER) (test code = 430) MONOCYTES RELATIVE PERCENT 6 % (BEAKER) (test code = 431) EOSINOPHILS RELATIVE PERCENT 0 % (BEAKER) (test code = 432) BASOPHILS RELATIVE PERCENT 0 % (BEAKER) (test code = 437) NEUTROPHILS ABSOLUTE COUNT 11.96 K/ L 1.56-6.13 H (BEAKER) (test code = 670) LYMPHOCYTES ABSOLUTE COUNT 1.20 K/ L 1.18-3.74 (BEAKER) (test code = 414) MONOCYTES ABSOLUTE COUNT (BEAKER) 0.91 K/ L 0.24-0.36 H (test code = 415) EOSINOPHILS ABSOLUTE COUNT 0.01 K/ L 0.04-0.36 L ([facility]) (test code = 416) BASOPHILS ABSOLUTE COUNT ([facility]) 0.02 K/ L 0.01-0.08 (test code = 417) IMMATURE GRANULOCYTES-RELATIVE 1 % 0-1 PERCENT ([facility]) (test code = 2801) POCT-GLUCOSE [id number] 21:38:00 Test Item Value Reference Range Interpretation Comments POC-GLUCOSE METER 266 mg/dL 70-110 H TESTED AT [place] [address] ([facility]) (test code = [facility] 1538) [address] POCT-GLUCOSE [id number] 17:38:00 Test Item Value Reference Range Interpretation Comments POC-GLUCOSE METER 213 mg/dL 70-110 H TESTED AT [place] [address] ([facility]) (test code = [facility] 1538) [address] POCT-GLUCOSE [id number] 13:23:00 Test Item Value Reference Range Interpretation Comments POC-GLUCOSE METER 272 mg/dL 70-110 H TESTED AT [place] [address] ([facility]) (test code = [facility] 1538) [address] POCT-GLUCOSE [id number] 11:56:00 Test Item Value Reference Range Interpretation Comments POC-GLUCOSE METER 120 mg/dL 70-110 H TESTED AT [place] [address] ([facility]) (test code = [facility] 1538) [address] POCT-GLUCOSE [id number] 08:20:00 Test Item Value Reference Range Interpretation Comments POC-GLUCOSE METER 88 mg/dL 70-110 TESTED AT [place] [address] ([facility]) (test code = [facility] [id number] 1538) BUN AND [id number] 05:59:00 Test Item Value Reference Range Interpretation Comments BLOOD UREA NITROGEN 30 mg/dL 7-21 H ([facility]) (test code = 354) CREATININE ([facility]) 0.81 mg/dL 0.57-1.25 (test code = 358) EGFR ([facility]) (test 104 mL/min/1.73 ESTIM ATED GFR IS code = 1092) sq m NOT ACCURATE CREATININE CLEARANCE IN PREDICTING GLOMERULAR FILTRATION RATE . ESTIMATED GFR I S NOT APPLICABLE FOR DIALYSIS PATIEN TS. CBC W/PLT COUNT & AUTO [id number] 05:24:00 Test Item Value Reference Range Interpretation Comments WHITE BLOOD CELL COUNT (BEAKER) 18.1 K/ L 3.5-10.5 H (test code = 775) RED BLOOD CELL COUNT (BEAKER) 3.48 M/ L 3.93-5.22 L (test code = 761) HEMOGLOBIN (BEAKER) (test code = 9.2 GM/DL 11.2-15.7 L 410) HEMATOCRIT (BEAKER) (test code = 31.2 % 34.1-44.9 L 411) MEAN CORPUSCULAR VOLUME (BEAKER) 89.7 fL 79.4-94.8 (test code = 753) MEAN CORPUSCULAR HEMOGLOBIN 26.4 pg 25.6-32.2 (BEAKER) (test code = 751) MEAN CORPUSCULAR HEMOGLOBIN CONC 29.5 GM/DL 32.2-35.5 L (BEAKER) (test code = 752) RED CELL DISTRIBUTION WIDTH 20.0 % 11.7-14.4 H (BEAKER) (test code = 412) PLATELET COUNT (BEAKER) (test 361 K/CU MM 150-450 code = 756) MEAN PLATELET VOLUME (BEAKER) 10.6 fL 9.4-12.3 (test code = 754) NUCLEATED RED BLOOD CELLS 0 /100 WBC 0-0 (BEAKER) (test code = 413) NEUTROPHILS RELATIVE PERCENT 85 % (BEAKER) (test code = 429) LYMPHOCYTES RELATIVE PERCENT 7 % (BEAKER) (test code = 430) MONOCYTES RELATIVE PERCENT 7 % (BEAKER) (test code = 431) EOSINOPHILS RELATIVE PERCENT 0 % (BEAKER) (test code = 432) BASOPHILS RELATIVE PERCENT 0 % (BEAKER) (test code = 437) NEUTROPHILS ABSOLUTE COUNT 15.39 K/ L 1.56-6.13 H (BEAKER) (test code = 670) LYMPHOCYTES ABSOLUTE COUNT 1.26 K/ L 1.18-3.74 (BEAKER) (test code = 414) MONOCYTES ABSOLUTE COUNT (BEAKER) 1.18 K/ L 0.24-0.36 H (test code = 415) EOSINOPHILS ABSOLUTE COUNT 0.03 K/ L 0.04-0.36 L (BEAKER) (test code = 416) BASOPHILS ABSOLUTE COUNT (BEAKER) 0.03 K/ L 0.01-0.08 (test code = 417) IMMATURE GRANULOCYTES-RELATIVE 1 % 0-1 PERCENT (BEAKER) (test code = 2801) POCT-GLUCOSE [id number] 20:50:00 Test Item Value Reference Range Interpretation Comments POC-GLUCOSE METER 260 mg/dL 70-[address] [facility] 6720 (BEAKER) (test code = [facility] 1538) [id number] POCT-GLUCOSE [id number] 17:30:00 Test Item Value Reference Range Interpretation Comments POC-GLUCOSE METER 208 mg/dL 70-110 H TESTED AT [place] [address] (BEAKER) (test code = [facility] 1538) [address] POCT-GLUCOSE [id number] 12:51:00 Test Item Value Reference Range Interpretation Comments POC-GLUCOSE METER 125 mg/dL 70-110 H TESTED AT [place] [address] (BEAKER) (test code = [facility] 1538) [address] BASIC METABOLIC [id number] 12:22:00 Test Item Value Reference Range Interpretation Comments SODIUM (BEAKER) 141 meq/L 136-145 (test code = 381) POTASSIUM (BEAKER) 4.6 meq/L 3.5-5.1 (test code = 379) CHLORIDE (BEAKER) 99 meq/L 98-107 (test code = 382) CO2 (BEAKER) (test 35 meq/L 22-29 H code = 355) BLOOD UREA NITROGEN 24 mg/dL 7-21 H (BEAKER) (test code = 354) CREATININE (BEAKER) 0.65 mg/dL 0.57-1.25 (test code = 358) GLUCOSE RANDOM 57 mg/dL 70-105 L (BEAKER) (test code = 652) CALCIUM (BEAKER) 9.0 mg/dL 8.4-10.2 (test code = 697) EGFR (BEAKER) (test 135 mL/min/1.73 ESTIM ATED GFR IS code = 1092) sq m NOT ACCURATE CREATININE CLEARANCE IN PREDICTING GLOMERULAR FILTRATION RATE . ESTIMATED GFR I S NOT APPLICABLE FOR DIALYSIS PATIEN TS. CBC W/PLT COUNT & AUTO [id number] 12:07:00 Test Item Value Reference Range Interpretation Comments WHITE BLOOD CELL COUNT (BEAKER) 20.6 K/ L 3.5-10.5 H (test code = 775) RED BLOOD CELL COUNT (BEAKER) 3.69 M/ L 3.93-5.22 L (test code = 761) HEMOGLOBIN (BEAKER) (test code = 9.8 GM/DL 11.2-15.7 L 410) HEMATOCRIT (BEAKER) (test code = 33.5 % 34.1-44.9 L 411) MEAN CORPUSCULAR VOLUME (BEAKER) 90.8 fL 79.4-94.8 (test code = 753) MEAN CORPUSCULAR HEMOGLOBIN 26.6 pg 25.6-32.2 (BEAKER) (test code = 751) MEAN CORPUSCULAR HEMOGLOBIN CONC 29.3 GM/DL 32.2-35.5 L (BEAKER) (test code = 752) RED CELL DISTRIBUTION WIDTH 20.1 % 11.7-14.4 H (BEAKER) (test code = 412) PLATELET COUNT (BEAKER) (test 382 K/CU MM 150-450 code = 756) MEAN PLATELET VOLUME (BEAKER) 10.4 fL 9.4-12.3 (test code = 754) NUCLEATED RED BLOOD CELLS 0 /100 WBC 0-0 (BEAKER) (test code = 413) NEUTROPHILS RELATIVE PERCENT 87 % (BEAKER) (test code = 429) LYMPHOCYTES RELATIVE PERCENT 6 % (BEAKER) (test code = 430) MONOCYTES RELATIVE PERCENT 4 % (BEAKER) (test code = 431) EOSINOPHILS RELATIVE PERCENT 1 % (BEAKER) (test code = 432) BASOPHILS RELATIVE PERCENT 0 % (BEAKER) (test code = 437) NEUTROPHILS ABSOLUTE COUNT 18.01 K/ L 1.56-6.13 H (BEAKER) (test code = 670) LYMPHOCYTES ABSOLUTE COUNT 1.30 K/ L 1.18-3.74 (BEAKER) (test code = 414) MONOCYTES ABSOLUTE COUNT (BEAKER) 0.75 K/ L 0.24-0.36 H (test code = 415) EOSINOPHILS ABSOLUTE COUNT 0.29 K/ L 0.04-0.36 (BEAKER) (test code = 416) BASOPHILS ABSOLUTE COUNT (BEAKER) 0.04 K/ L 0.01-0.08 (test code = 417) IMMATURE GRANULOCYTES-RELATIVE 1 % 0-1 PERCENT (BEAKER) (test code = 0001) POCT-GLUCOSE [id number] 11:57:00 Test Item Value Reference Range Interpretation Comments POC-GLUCOSE METER 59 mg/dL 70-110 L Will Repea t Test/TESTED (BEAKER) (test code = AT [facility] [address] [address]) [facility] 7703 0 RAD, CHEST, 1 VIEW, NON [id number] 11:31:00Reason for exam:->interval change in upper lobe diseaseShould this be performed at the bedside?->Yes FINAL REPORT One view of the chest and [...] of unclear clinical significance. Signed: Tripp Jones [employer]ivoep[employer]Key Verified Date/Time: 06/26/2018 11:31:01 Reading Location: [address] Ortho Consult Reading Room RAD, ABDOMEN/KUB, 1 VIEW [id number] 11:31:00Reason for exam:->assess for stool burdenShould this [...] MDReport Verified Date/Time: 06/26/2018 11:31:01 Reading Location: [facility] B1 [id number] Ortho Consult Reading Room POCT-GLUCOSE [id number] 08:23:00 Test Item Value Reference Range Interpretation Comments POC-GLUCOSE METER 109 mg/dL 70-110 TESTED AT [place] [address] ([facility]) (test code = [place] 1538) [address] LACTIC ACID, VENOUS, WHOLE [id number] 06:39:00 Test Item Value Reference Range Interpretation Comments LACTATE BLOOD VENOUS (2) ([facility]) 1.1 mmol/L 0.5-2.2 (test code = 2872) Effective 02/26/2016: Units/Reference Range ChangeNew: 0.5-2.2 mmol/L Previous: 5-20 mg/dLBUN AND [id number] 06:08:00 Test Item Value Reference Range Interpretation Comments BLOOD UREA NITROGEN 25 mg/dL 7-21 H ([facility]) (test code = 354) CREATININE ([facility]) 0.70 mg/dL 0.57-1.25 (test code = 358) EGFR ([facility]) (test 124 mL/min/1.73 ESTIM ATED GFR IS code = 1092) sq m NOT ACCURATE CREATININE CLEARANCE IN PREDICTING GLOMERULAR FILTRATION RATE . ESTIMATED GFR I S NOT APPLICABLE FOR DIALYSIS PATIEN TS. POCT-GLUCOSE [id number] 05:27:00 Test Item Value Reference Range Interpretation Comments POC-GLUCOSE METER 120 mg/dL 70-110 H TESTED AT [place] [address] ([facility]) (test code = [place] 1538) [id number] POCT-GLUCOSE [id number] 21:14:00 Test Item Value Reference Range Interpretation Comments POC-GLUCOSE METER 216 mg/dL 70-110 H TESTED AT [place] [address] ([facility]) (test code = [place] 1538) [address] POCT-GLUCOSE [id number] 17:08:00 Test Item Value Reference Range Interpretation Comments POC-GLUCOSE METER 197 mg/dL 70-110 H TESTED AT [place] [address] ([facility]) (test code = [place] 1538) [address] POCT-GLUCOSE [id number] 11:51:00 Test Item Value Reference Range Interpretation Comments POC-GLUCOSE METER 160 mg/dL 70-110 H TESTED AT [place] [address] ([facility]) (test code = PAUL Tanner [facility] 1538) [address] POCT-GLUCOSE [id number] 08:13:00 Test Item Value Reference Range Interpretation Comments POC-GLUCOSE METER 376 mg/dL 70-110 H Notified R Collin STAPLETON/TESTED ([facility]) (test code = AT [place] [address] [address]) [facility] 7[address] 0 BUN AND [id number] 07:14:00 Test Item Value Reference Range Interpretation Comments BLOOD UREA NITROGEN 28 mg/dL 7-21 H ([facility]) (test code = 354) CREATININE ([facility]) 0.76 mg/dL 0.57-1.25 (test code = 358) EGFR ([facility]) (test 112 mL/min/1.73 ESTIM ATED GFR IS code = 1092) sq m NOT ACCURATE CREATININE CLEARANCE IN PREDICTING GLOMERULAR FILTRATION RATE . ESTIMATED GFR I S NOT APPLICABLE FOR DIALYSIS PATIEN TS. POCT-GLUCOSE [id number] 22:17:00 Test Item Value Reference Range Interpretation Comments POC-GLUCOSE METER 163 mg/dL 70-110 H TESTED AT [place] [address] ([facility]) (test code = PAUL Tanner [facility] 1538) [id number] POCT-GLUCOSE [id number] 16:46:00 Test Item Value Reference Range Interpretation Comments POC-GLUCOSE METER 301 mg/dL 70-110 H TESTED AT [place] [address] ([facility]) (test code = PAUL Tanner [facility] 1538) [id number] POCT-GLUCOSE [id number] 12:12:00 Test Item Value Reference Range Interpretation Comments POC-GLUCOSE METER 400 mg/dL 70-110 HH Notified R Collin MD/TESTED ([facility]) (test code = AT [place] [address] [address] 1538) [facility] [id number] POCT-GLUCOSE [id number] 07:42:00 Test Item Value Reference Range Interpretation Comments POC-GLUCOSE METER 65 mg/dL 70-110 L Notified Ciro Polanco MD/TESTED AT ([facility]) (test code = [place] [address] [address] 1538) [facility] [id number] BUN AND [id number] 06:26:00 Test Item Value Reference Range Interpretation Comments BLOOD UREA NITROGEN 27 mg/dL 7-21 H (BEAKER) (test code = 354) CREATININE (BEAKER) 0.70 mg/dL 0.57-1.25 (test code = 358) EGFR (BEAKER) (test 124 mL/min/1.73 ESTIM ATED GFR IS code = 1092) sq m NOT ACCURATE CREATININE CLEARANCE IN PREDICTING GLOMERULAR FILTRATION RATE . ESTIMATED GFR I S NOT APPLICABLE FOR DIALYSIS PATIEN TS. CF RESPIRATORY [id number] 02:48:00 Test Item Value Reference Range Interpretation Comments CULTURE (BEAKER) PSEUDOMONAS A 3+ Pseudomo viki (test code = 1095) AERUGINOSA aeruginos a (MUCOID-PHENOTYPE (Mucoid-ph enotype ) ) Amikacin (test code Susceptible 0-16 S = 1) , Resistant <0 or >16 Aztreonam (test Susceptible 0-8 , S code = 32) Resistant <0 or >8 Cefepime (test code Susceptible 0-8 , S = 51) Resistant <0 or >8 Ceftazidime (test Susceptible 0-8 , S code = 27) Resistant <0 or >8 Ciprofloxacin (test Susceptible 0-1 , R code = 7) Resistant <0 or >1 Gentamicin (test Susceptible 0-4 , S code = 18) Resistant <0 or >4 Levofloxacin (test Susceptible 0-2 , R code = 22) Resistant <0 or >2 Meropenem (test Susceptible 0-2 , S code = 34) Resistant <0 or >2 Piperacillin (test Susceptible 0-16 R code = 24) , Resistant <0 or >16 Piperacillin + Susceptible 0-16 S Tazobactam (test , Resistant <0 or code = 29) >16 Tobramycin (test Susceptible 0-4 , S code = 25) Resistant <0 or >4 CULTURE (BEAKER) PSEUDOMONAS A 3+ Pseudomo viki (test code = 1095) AERUGINOSA aeruginos a (MUCOID-PHENOTYPE (Mucoid-ph enotype ) )of a second ty pe Amikacin (test code Susceptible 0-16 S = 1) , Resistant <0 or >16 Aztreonam (test Susceptible 0-8 , S code = 32) Resistant <0 or >8 Cefepime (test code Susceptible 0-8 , S = 51) Resistant <0 or >8 Ceftazidime (test Susceptible 0-8 , S code = 27) Resistant <0 or >8 Ciprofloxacin (test Susceptible 0-1 , R code = 7) Resistant <0 or >1 Gentamicin (test Susceptible 0-4 , S code = 18) Resistant <0 or >4 Levofloxacin (test Susceptible 0-2 , R code = 22) Resistant <0 or >2 Meropenem (test Susceptible 0-2 , S code = 34) Resistant <0 or >2 Piperacillin (test Susceptible 0-16 S code = 24) , Resistant <0 or >16 Piperacillin + Susceptible 0-16 S Tazobactam (test , Resistant <0 or code = 29) >16 Tobramycin (test Susceptible 0-4 , S code = 25) Resistant <0 or >4 4+ Normal respiratory derick presentPOCT-GLUCOSE [id number] 21:45:00 Test Item Value Reference Range Interpretation Comments POC-GLUCOSE METER 153 mg/dL 70-110 H TESTED AT [place] [address] ([facility]) (test code = PAUL Tanner [facility] 1538) [id number] POCT-GLUCOSE [id number] 17:25:00 Test Item Value Reference Range Interpretation Comments POC-GLUCOSE METER 237 mg/dL 70-110 H TESTED AT [place] [address] ([facility]) (test code = PAUL Tanner [facility] 1538) [id number] POCT-GLUCOSE [id number] 11:39:00 Test Item Value Reference Range Interpretation Comments POC-GLUCOSE METER 126 mg/dL 70-110 H TESTED AT [place] [address] ([facility]) (test code = PAUL Tanner [facility] 1538) [id number] BUN AND [id number] 07:39:00 Test Item Value Reference Range Interpretation Comments BLOOD UREA NITROGEN 33 mg/dL 7-21 H ([facility]) (test code = 354) CREATININE ([facility]) 0.84 mg/dL 0.57-1.25 (test code = 358) EGFR ([facility]) (test 100 mL/min/1.73 ESTIM ATED GFR IS code = 1092) sq m NOT ACCURATE CREATININE CLEARANCE IN PREDICTING GLOMERULAR FILTRATION RATE . ESTIMATED GFR I S NOT APPLICABLE FOR DIALYSIS PATIEN TS. POCT-GLUCOSE [id number] 07:30:00 Test Item Value Reference Range Interpretation Comments POC-GLUCOSE METER 424 mg/dL 70-110 HH Notified R Collin STAPLETON/TESTED ([facility]) (test code = AT [place] 230798) [facility] 7703 0 POCT-GLUCOSE [id number] 21:36:00 Test Item Value Reference Range Interpretation Comments POC-GLUCOSE METER 241 mg/dL 70-110 H TESTED AT [place] [address] ([facility]) (test code = PAUL Tanner [place] 264598) [address] POCT-GLUCOSE [id number] 17:03:00 Test Item Value Reference Range Interpretation Comments POC-GLUCOSE METER 405 mg/dL 70-110 HH Baby teste d Mother ID ([facility]) (test code = used/T ESTED AT [place] [address]) [address] [facility] [address] POCT-GLUCOSE [id number] 14:17:00 Test Item Value Reference Range Interpretation Comments POC-GLUCOSE METER 81 mg/dL 70-110 TESTED AT [place] [address] ([facility]) (test code = PAUL Tanner [facility] [address] 1538) HEMOGLOBIN [id number] 09:17:00 Test Item Value Reference Range Interpretation Comments HEMOGLOBIN A1C ([facility]) (test code = 13.9 % 4.3-6.1 H 368) POCT-GLUCOSE [id number] 07:56:00 Test Item Value Reference Range Interpretation Comments POC-GLUCOSE METER 226 mg/dL 70-110 H TESTED AT [place] [address] ([facility]) (test code = PAUL Tanner [place] [address]) [address] BUN AND [id number] 06:35:00 Test Item Value Reference Range Interpretation Comments BLOOD UREA NITROGEN 25 mg/dL 7-21 H ([facility]) (test code = 354) CREATININE ([facility]) 0.74 mg/dL 0.57-1.25 (test code = 358) EGFR ([facility]) (test 116 mL/min/1.73 ESTIM ATED GFR IS code = 1092) sq m NOT ACCURATE CREATININE CLEARANCE IN PREDICTING GLOMERULAR FILTRATION RATE . ESTIMATED GFR I S NOT APPLICABLE FOR DIALYSIS PATIEN TS. POCT-GLUCOSE [id number] 21:56:00 Test Item Value Reference Range Interpretation Comments POC-GLUCOSE METER 347 mg/dL 70-110 H Notified Ciro Polanco MD/TESTED ([facility]) (test code = AT [place] [address]) [facility] 7703 0 POCT-GLUCOSE [id number] 17:05:00 Test Item Value Reference Range Interpretation Comments POC-GLUCOSE METER 163 mg/dL 70-110 H TESTED AT [place] [address] ([facility]) (test code = PAUL Tanner [facility] 1538) [address] POCT-GLUCOSE [id number] 12:36:00 Test Item Value Reference Range Interpretation Comments POC-GLUCOSE METER 124 mg/dL 70-110 H TESTED AT [place] [address] ([facility]) (test code = PAUL Tanner [facility] 1538) [address] POCT-GLUCOSE [id number] 07:25:00 Test Item Value Reference Range Interpretation Comments POC-GLUCOSE METER 161 mg/dL 70-110 H TESTED AT [place] [address] ([facility]) (test code = PAUL Tanner [facility] 1538) [address] BUN AND [id number] 03:23:00 Test Item Value Reference Range Interpretation Comments BLOOD UREA NITROGEN 23 mg/dL 7-21 H ([facility]) (test code = 354) CREATININE ([facility]) 0.75 mg/dL 0.57-1.25 (test code = 358) EGFR ([facility]) (test 114 mL/min/1.73 ESTIM ATED GFR IS code = 1092) sq m NOT ACCURATE CREATININE CLEARANCE IN PREDICTING GLOMERULAR FILTRATION RATE . ESTIMATED GFR I S NOT APPLICABLE FOR DIALYSIS PATIEN TS. POCT-GLUCOSE [id number] 21:35:00 Test Item Value Reference Range Interpretation Comments POC-GLUCOSE METER 126 mg/dL 70-110 H TESTED AT [place] [address] ([facility]) (test code = PAUL Tanner [facility] 1538) [address] POCT-GLUCOSE [id number] 17:43:00 Test Item Value Reference Range Interpretation Comments POC-GLUCOSE METER 229 mg/dL 70-110 H TESTED AT [place] [address] ([facility]) (test code = PAUL Tanner [facility] 1538) [address] POCT-GLUCOSE [id number] 13:02:00 Test Item Value Reference Range Interpretation Comments POC-GLUCOSE METER 155 mg/dL 70-110 H TESTED AT [place] [address] ([facility]) (test code = PAUL Tanner [facility] 1538) [address] POCT-GLUCOSE [id number] 09:12:00 Test Item Value Reference Range Interpretation Comments POC-GLUCOSE METER 252 mg/dL 70-110 H TESTED AT [place] [id number] ([facility]) (test code = PAUL Tanner [place] 264598) [address] POCT-GLUCOSE [id number] 08:38:00 Test Item Value Reference Range Interpretation Comments POC-GLUCOSE METER 58 mg/dL 70-110 L Notified R Collin STAPLETON/TESTED AT ([facility]) (test code = [place] [address]2468) [facility] 770 0 BLOOD [id number] 06:00:00 Test Item Value Reference Range Interpretation Comments CULTURE (BEAKER) (test No growth in 5 days code = 1095) BLOOD [id number] 06:00:00 Test Item Value Reference Range Interpretation Comments CULTURE (BEAKER) (test No growth in 5 days code = 1095) POCT-GLUCOSE [id number] 21:09:00 Test Item Value Reference Range Interpretation Comments POC-GLUCOSE METER 365 mg/dL 70-110 H Notified R Collin STAPLETON/TESTED ([facility]) (test code = AT [place] [address]) [facility] 7703 0 POCT-GLUCOSE [id number] 18:57:00 Test Item Value Reference Range Interpretation Comments POC-GLUCOSE METER 395 mg/dL 70-110 H TESTED AT [place] [address] ([facility]) (test code = PAUL Tanner [place] [address]) [address] POCT-GLUCOSE [id number] 14:19:00 Test Item Value Reference Range Interpretation Comments POC-GLUCOSE METER 387 mg/dL 70-110 H Notified R Collin STAPLETON/TESTED ([facility]) (test code = AT [place] [address]) [place] [address] 0 SPUTUM CULTURE + GRAM [id number] 09:38:00 Test Item Value Reference Range Interpretation Comments CULTURE (BEAKER) (test See comment code = 1095) GRAM STAIN RESULT 1+ WBCs (BEAKER) (test code = 1123) GRAM STAIN RESULT 0-5 epithelial cells (BEAKER) (test code = 33089) GRAM STAIN RESULT No organisms seen (BEAKER) (test code = 871435) Please refer to CF respiratory culture for results. Charges for this culture and gram stain are credited.POCT-GLUCOSE [id number] 09:12:00 Test Item Value Reference Range Interpretation Comments POC-GLUCOSE METER 41 mg/dL 70-110 L Baby teste d Mother ID ([facility]) (test code = used/T ESTED AT [place] [address]) [address] [place] [address] BASIC METABOLIC [id number] 05:17:00 Test Item Value Reference Range Interpretation Comments SODIUM (BEAKER) 139 meq/L 136-145 (test code = 381) POTASSIUM (BEAKER) 3.9 meq/L 3.5-5.1 (test code = 379) CHLORIDE (BEAKER) 99 meq/L 98-107 (test code = 382) CO2 (BEAKER) (test 31 meq/L 22-29 H code = 355) BLOOD UREA NITROGEN 21 mg/dL 7-21 (BEAKER) (test code = 354) CREATININE (BEAKER) 0.76 mg/dL 0.57-1.25 (test code = 358) GLUCOSE RANDOM 76 mg/dL 70-105 (BEAKER) (test code = 652) CALCIUM (BEAKER) 8.9 mg/dL 8.4-10.2 (test code = 697) EGFR (BEAKER) (test 112 mL/min/1.73 ESTIM ATED GFR IS code = 1092) sq m NOT ACCURATE CREATININE CLEARANCE IN PREDICTING GLOMERULAR FILTRATION RATE . ESTIMATED GFR I S NOT APPLICABLE FOR DIALYSIS PATIEN TS. POCT-GLUCOSE [id number] 22:15:00 Test Item Value Reference Range Interpretation Comments POC-GLUCOSE METER 329 mg/dL 70-110 H Notified R Collin STAPLETON/TESTED ([facility]) (test code = AT [place] [address]) [facility] 7703 0 POCT-GLUCOSE [id number] 20:47:00 Test Item Value Reference Range Interpretation Comments POC-GLUCOSE METER 432 mg/dL 70-110 HH Notified R Collin STAPLETON/TESTED ([facility]) (test code = AT [place] [address]) [facility] 7703 0 POCT-GLUCOSE [id number] 18:31:00 Test Item Value Reference Range Interpretation Comments POC-GLUCOSE METER 296 mg/dL 70-110 H TESTED AT [place] [address] ([facility]) (test code = PAUL Tanner [place] [address]) [address] POCT-GLUCOSE [id number] 18:08:00 Test Item Value Reference Range Interpretation Comments POC-GLUCOSE METER 198 mg/dL 70-[address] [facility] 6720 ([facility]) (test code = PAUL Tanner [facility] 1538) [address] POCT-GLUCOSE [id number] 18:08:00 Test Item Value Reference Range Interpretation Comments POC-GLUCOSE METER 46 mg/dL 70-[address] [facility] 6720 (BEAKER) (test code = PAUL Tanner [facility] [address] 1538) POCT-GLUCOSE [id number] 12:42:00 Test Item Value Reference Range Interpretation Comments POC-GLUCOSE METER 71 mg/dL 70-[address] [facility] 6720 ([facility]) (test code = PAUL Tanner [facility] [address] 1538) TROPONIN [id number] 10:01:00 Test Item Value Reference Range Interpretation Comments TROPONIN I (BEAKER) (test code = 397) < ng/mL 0.00-0.03 Troponin I (TnI) levels [...] acute neurological disease, and persistent tachyarrhythmia.BASIC METABOLIC [id number] 09:53:00 Test Item Value Reference Range Interpretation Comments SODIUM (BEAKER) 134 meq/L 136-145 L (test code = 381) POTASSIUM (BEAKER) 4.3 meq/L 3.5-5.1 (test code = 379) CHLORIDE (BEAKER) 97 meq/L 98-107 L (test code = 382) CO2 (BEAKER) (test 28 meq/L 22-29 code = 355) BLOOD UREA NITROGEN 23 mg/dL 7-21 H (BEAKER) (test code = 354) CREATININE (BEAKER) 0.84 mg/dL 0.57-1.25 (test code = 358) GLUCOSE RANDOM 397 mg/dL 70-105 H (BEAKER) (test code = 652) CALCIUM (BEAKER) 8.8 mg/dL 8.4-10.2 (test code = 697) EGFR (BEAKER) (test 100 mL/min/1.73 ESTIM ATED GFR IS code = 1092) sq m NOT ACCURATE CREATININE CLEARANCE IN PREDICTING GLOMERULAR FILTRATION RATE . ESTIMATED GFR I S NOT APPLICABLE FOR DIALYSIS PATIEN TS. POCT-GLUCOSE [id number] 08:49:00 Test Item Value Reference Range Interpretation Comments POC-GLUCOSE METER 168 mg/dL 70-110 H TESTED AT [place] [address] ([facility]) (test code = PAUL Tanner [facility] 1538) [address] POCT-GLUCOSE [id number] 20:59:00 Test Item Value Reference Range Interpretation Comments POC-GLUCOSE METER 218 mg/dL 70-110 H TESTED AT [place] [address] ([facility]) (test code = [facility] Ciro [facility] 1538) [address] POCT-GLUCOSE [id number] 17:20:00 Test Item Value Reference Range Interpretation Comments POC-GLUCOSE METER 259 mg/dL 70-110 H TESTED AT [place] [address] ([facility]) (test code = [facility] Ciro [facility] 1538) [address] POCT-GLUCOSE [id number] 15:10:00 Test Item Value Reference Range Interpretation Comments POC-GLUCOSE METER 263 mg/dL 70-110 H TESTED AT [place] [address] ([facility]) (test code = [facility] C[place] 1538) [address] POCT-GLUCOSE [id number] 08:12:00 Test Item Value Reference Range Interpretation Comments POC-GLUCOSE METER 126 mg/dL 70-110 H TESTED AT [place] [address] ([facility]) (test code = [facility] Ciro [facility] 1538) [address] BASIC METABOLIC [id number] 06:51:00 Test Item Value Reference Range Interpretation Comments SODIUM (BEAKER) 139 meq/L 136-145 (test code = 381) POTASSIUM (BEAKER) 4.3 meq/L 3.5-5.1 (test code = 379) CHLORIDE (BEAKER) 102 meq/L 98-107 (test code = 382) CO2 (BEAKER) (test 30 meq/L 22-29 H code = 355) BLOOD UREA NITROGEN 17 mg/dL 7-21 (BEAKER) (test code = 354) CREATININE (BEAKER) 0.74 mg/dL 0.57-1.25 (test code = 358) GLUCOSE RANDOM 184 mg/dL 70-105 H (BEAKER) (test code = 652) CALCIUM (BEAKER) 8.7 mg/dL 8.4-10.2 (test code = 697) EGFR (BEAKER) (test 116 mL/min/1.73 ESTIM ATED GFR IS code = 1092) sq m NOT ACCURATE CREATININE CLEARANCE IN PREDICTING GLOMERULAR FILTRATION RATE . ESTIMATED GFR I S NOT APPLICABLE FOR DIALYSIS PATIEN TS. POCT-GLUCOSE [id number] 21:02:00 Test Item Value Reference Range Interpretation Comments POC-GLUCOSE METER 192 mg/dL 70-110 H TESTED AT [place] [address] ([facility]) (test code = PAUL Tanner [facility] 1538) [address] POCT-GLUCOSE [id number] 16:18:00 Test Item Value Reference Range Interpretation Comments POC-GLUCOSE METER 199 mg/dL 70-110 H TESTED AT [place] [address] ([facility]) (test code = PAUL Tanner [facility] 1538) [address] POCT-GLUCOSE [id number] 14:34:00 Test Item Value Reference Range Interpretation Comments POC-GLUCOSE METER 332 mg/dL 70-110 H TESTED AT [place] [address] ([facility]) (test code = PAUL Ciro [facility] 1538) [address] POCT-GLUCOSE [id number] 11:37:00 Test Item Value Reference Range Interpretation Comments POC-GLUCOSE METER 305 mg/dL 70-110 H Notified Ciro Polanco MD/TESTED ([facility]) (test code = AT [address] 1538) [facility] 7703 0 POCT-GLUCOSE [id number] 10:22:00 Test Item Value Reference Range Interpretation Comments POC-GLUCOSE METER 322 mg/dL 70-110 H Notified Ciro Polanco MD/TESTED ([facility]) (test code = AT [address] 1538) [facility] 7703 0 BASIC METABOLIC [id number] 09:42:00 Test Item Value Reference Range Interpretation Comments SODIUM (BEAKER) 135 meq/L 136-145 L (test code = 381) POTASSIUM (BEAKER) 4.1 meq/L 3.5-5.1 (test code = 379) CHLORIDE (BEAKER) 100 meq/L 98-107 (test code = 382) CO2 (BEAKER) (test 30 meq/L 22-29 H code = 355) BLOOD UREA NITROGEN 13 mg/dL 7-21 ([facility]) (test code = 354) CREATININE ([facility]) 0.65 mg/dL 0.57-1.25 (test code = 358) GLUCOSE RANDOM 149 mg/dL 70-105 H ([facility]) (test code = 652) CALCIUM ([facility]) 8.9 mg/dL 8.4-10.2 (test code = 697) EGFR ([facility]) (test 135 mL/min/1.73 ESTIM ATED GFR IS code = 1092) sq m NOT ACCURATE CREATININE CLEARANCE IN PREDICTING GLOMERULAR FILTRATION RATE . ESTIMATED GFR I S NOT APPLICABLE FOR DIALYSIS PATIEN TS. POCT-GLUCOSE [id number] 09:24:00 Test Item Value Reference Range Interpretation Comments POC-GLUCOSE METER 169 mg/dL 70-110 H TESTED AT [place] [address] ([facility]) (test code = [facility] 1538) [address] POCT-GLUCOSE [id number] 08:27:00 Test Item Value Reference Range Interpretation Comments POC-GLUCOSE METER 176 mg/dL 70-110 H TESTED AT [place] [address] ([facility]) (test code = [facility] 1538) [address] POCT-GLUCOSE [id number] 06:58:00 Test Item Value Reference Range Interpretation Comments POC-GLUCOSE METER 214 mg/dL 70-110 H TESTED AT [place] [address] ([facility]) (test code = [facility] 1538) [address] RESPIRATORY PANEL [id number] 06:36:00 Test Item Value Reference Range Interpretation Comments HUMAN METAPNEUMOVIRUS Not detected Not detected, ([facility]) (test code = 2683) Equivocal RHINOVIRUS (BEAKER) (test Not detected Not detected, code = 2684) Equivocal INFLUENZA A (BEAKER) (test Not detected Not detected, code = 2685) Equivocal INFLUENZA A (NO SUBTYPE) Not detected, (test code = 3606) Equivocal INFLUENZA A SUBTYPE H1 Not detected, (BEAKER) (test code = 2686) Equivocal INFLUENZA A SUBTYPE H3 Not detected, (BEAKER) (test code = 2687) Equivocal INFLUENZA A SUBTYPE H1-2009 Not detected, (BEAKER) (test code = 3198) Equivocal INFLUENZA B (BEAKER) (test Not detected Not detected, code = 2688) Equivocal RESPIRATORY SYNCYTIAL VIRUS Not detected Not detected, (BEAKER) (test code = 3199) Equivocal PARAINFLUENZA VIRUS 1 Not detected Not detected, (BEAKER) (test code = 2691) Equivocal PARAINFLUENZA VIRUS 2 Not detected Not detected, (BEAKER) (test code = 2692) Equivocal PARAINFLUENZA VIRUS 3 Not detected Not detected, (BEAKER) (test code = 2693) Equivocal PARAINFLUENZA VIRUS 4 Not detected Not detected, (BEAKER) (test code = 3200) Equivocal ADENOVIRUS (BEAKER) (test Not detected Not detected, code = 2694) Equivocal CORONAVIRUS 229E (BEAKER) Not detected Not detected, (test code = 3201) Equivocal CORONAVIRUS HKU1 (BEAKER) Not detected Not detected, (test code = 3202) Equivocal CORONAVIRUS NL63 (BEAKER) Not detected Not detected, (test code = 3203) Equivocal CORONAVIRUS OC43 (BEAKER) Not detected Not detected, (test code = 3204) Equivocal BORDETELLA PERTUSSIS Not detected Not detected, (BEAKER) (test code = 3205) Equivocal CHLAMYDOPHILA PNEUMONIAE Not detected Not detected, (BEAKER) (test code = 3206) Equivocal MYCOPLASMA PNEUMONIAE Not detected Not detected, (BEAKER) (test code = 3207) Equivocal Other viruses and bacteria not targeted by this PCR panel cannot be excluded; therefore clinical correlation and follow up of serology, culture results, and other molecular studies is required. The results are not intended to be used as the sole means for clinical diagnosis or patient management decisions. This sample was tested at the [facility] Molecular Diagnostics Laboratory using the Spinal SimplicityArray Respiratory Panel. It is FDA cleared and has been verified and approved by the [facility] for clinical use on nasal swab specimens. It is not FDA-cleared for use on bronchial wash/lavage samples. However, for this sample type, validation was performed and test characteristics were determined and approved, by [facility] for clinical use under the Clinical Laboratory Improvement Amendments (CLIA) of 1988 requirements. Therefore, FDA clearance isnot required. This laboratory is CLIA- certified and [employer] [place] [employer] (CAP)-accredited to perform high complexity testing.Other viruses and bacteria not targeted by this PCR panel cannot be excluded; therefore clinical correlation and follow up of serology, culture results, and other molecular studies is required. The results are not intended to be used as the sole means for clinical diagnosis or patient management decisions. This sample was tested at the [facility] Molecular Diagnostics Laboratory using the Spinal SimplicityArray Respiratory Panel. It is FDA cleared and has been verified andapproved by the [facility] Molecular [facility]ostics Laboratory for clinical use on nasal swab specimens. It is not FDA-cleared for use on bronchial wash/lavage samples. However, for this sample type, validation was performed and test characteristics were determined and approved, by [facility] for clinical use under the Clinical Laboratory Improvement Amendments (CLIA) of 1988 requirements. Therefore, FDA clearance is not required. This laboratory is CLIA-certified and [employer] of[employer] (CAP)-accredited to perform high complexity testing.POCT-GLUCOSE [id number] 05:59:00 Test Item Value Reference Range Interpretation Comments POC-GLUCOSE METER 214 mg/dL 70-[address] [facility] 6720 (BEAKER) (test code = [place] 1538) [address] [id number] 05:19:00 Test Item Value Reference Range Interpretation Comments MAGNESIUM (BEAKER) (test code = 1.7 mg/dL 1.6-2.6 627) If last glucose was less than 500, may do bedside glucose instead of serum glucose.[id number] 05:19:00 Test Item Value Reference Range Interpretation Comments GLUCOSE RANDOM (BEAKER) (test code 265 mg/dL 70-105 H = 652) If last glucose was less than 500, may do bedside glucose instead of serum glucose.BASIC METABOLIC [id number] 05:19:00 Test Item Value Reference Range Interpretation Comments SODIUM (BEAKER) 133 meq/L 136-145 L (test code = 381) POTASSIUM (BEAKER) 4.4 meq/L 3.5-5.1 (test code = 379) CHLORIDE (BEAKER) 97 meq/L 98-107 L (test code = 382) CO2 (BEAKER) (test 30 meq/L 22-29 H code = 355) BLOOD UREA NITROGEN 14 mg/dL 7-21 (BEAKER) (test code = 354) CREATININE (BEAKER) 0.71 mg/dL 0.57-1.25 (test code = 358) GLUCOSE RANDOM 265 mg/dL 70-105 H (BEAKER) (test code = 652) CALCIUM (BEAKER) 8.8 mg/dL 8.4-10.2 (test code = 697) EGFR (BEAKER) (test 122 mL/min/1.73 ESTIM ATED GFR IS code = 1092) sq m NOT ACCURATE CREATININE CLEARANCE IN PREDICTING GLOMERULAR FILTRATION RATE . ESTIMATED GFR I S NOT APPLICABLE FOR DIALYSIS PATIEN TS. If last glucose was less than 500, may do bedside glucose instead of serum glucose.POCT-GLUCOSE [id number] 04:46:00 Test Item Value Reference Range Interpretation Comments POC-GLUCOSE METER 272 mg/dL 70-[address] [facility] 6720 (BEAKER) (test code = [facility] 1538) [address] POCT-GLUCOSE [id number] 03:44:00 Test Item Value Reference Range Interpretation Comments POC-GLUCOSE METER 326 mg/dL 70-[address] [facility] 6720 ([facility]) (test code = [facility] 1538) [address] POCT-GLUCOSE [id number] 02:12:00 Test Item Value Reference Range Interpretation Comments POC-GLUCOSE METER 217 mg/dL 70-[address] [facility] 6720 (BEAKER) (test code = [facility] 1538) [address] [id number] 02:02:00 Test Item Value Reference Range Interpretation Comments POTASSIUM (BEAKER) (test code = 3.9 meq/L 3.5-5.1 379) If last glucose was less than 500, may do bedside glucose instead of serum glucose.[id number] 02:02:00 Test Item Value Reference Range Interpretation Comments GLUCOSE RANDOM (BEAKER) (test code 122 mg/dL 70-105 H = 652) If last glucose was less than 500, may do bedside glucose instead of serum glucose.BASIC METABOLIC [id number] 02:02:00 Test Item Value Reference Range Interpretation Comments SODIUM (BEAKER) 135 meq/L 136-145 L (test code = 381) POTASSIUM (BEAKER) 3.9 meq/L 3.5-5.1 (test code = 379) CHLORIDE (BEAKER) 100 meq/L 98-107 (test code = 382) CO2 (BEAKER) (test 27 meq/L 22-29 code = 355) BLOOD UREA NITROGEN 14 mg/dL 7-21 ([facility]) (test code = 354) CREATININE ([facility]) 0.70 mg/dL 0.57-1.25 (test code = 358) GLUCOSE RANDOM 122 mg/dL 70-105 H ([facility]) (test code = 652) CALCIUM (AKER) 8.6 mg/dL 8.4-10.2 (test code = 697) EGFR ([facility]) (test 124 mL/min/1.73 ESTIM ATED GFR IS code = 1092) sq m NOT ACCURATE CREATININE CLEARANCE IN PREDICTING GLOMERULAR FILTRATION RATE . ESTIMATED GFR I S NOT APPLICABLE FOR DIALYSIS PATIEN TS. If last glucose was less than 500, may do bedside glucose instead of serum glucose.POCT-GLUCOSE [id number] 01:12:00 Test Item Value Reference Range Interpretation Comments POC-GLUCOSE METER 106 mg/dL 70-110 TESTED AT [place] [address] ([facility]) ([facility] = [facility] [facility] 1538) [address] POCT-GLUCOSE [id number] 00:39:00 Test Item Value Reference Range Interpretation Comments POC-GLUCOSE METER 51 mg/dL 70-110 L TESTED AT [place] [address] ([facility]) (test code = [facility] [address] 1538) POCT-GLUCOSE [id number] 00:30:00 Test Item Value Reference Range Interpretation Comments POC-GLUCOSE METER 51 mg/dL 70-110 L TESTED AT [place] [address] ([facility]) (test code = [facility] [address] 1538) [id number] 22:06:00 Test Item Value Reference Range Interpretation Comments POTASSIUM ([facility]) (test code = 3.8 meq/L 3.5-5.1 379) If last glucose was less than 500, may do bedside glucose instead of serum glucose.[id number] 22:06:00 Test Item Value Reference Range Interpretation Comments GLUCOSE RANDOM ([facility]) (test code 311 mg/dL 70-105 H = 652) If last glucose was less than 500, may do bedside glucose instead of serum glucose.KETONE, [id number] 22:03:00 Test Item Value Reference Range Interpretation Comments KETONES, BLOOD ([facility]) (test code 0.1 mmol/L <0.4 = 1103) POCT-GLUCOSE [id number] 21:52:00 Test Item Value Reference Range Interpretation Comments POC-GLUCOSE METER 403 mg/dL 70-110 HH Notified R N or (BEAKER) (test code = Patien t refused repeat 1537) test/TESTED AT [address] [address] BASIC METABOLIC [id number] 19:28:00 Test Item Value Reference Range Interpretation Comments SODIUM (BEAKER) 129 meq/L 136-145 L (test code = 381) POTASSIUM (BEAKER) 4.6 meq/L 3.5-5.1 (test code = 379) CHLORIDE (BEAKER) 93 meq/L 98-107 L (test code = 382) CO2 (BEAKER) (test 24 meq/L 22-29 code = 355) BLOOD UREA NITROGEN 17 mg/dL 7-21 (BEAKER) (test code = 354) CREATININE (BEAKER) 1.39 mg/dL 0.57-1.25 H (test code = 358) GLUCOSE RANDOM 822 mg/dL 70-105 HH (BEAKER) (test code = 652) CALCIUM (BEAKER) 8.6 mg/dL 8.4-10.2 (test code = 697) EGFR (BEAKER) (test 56 mL/min/1.73 ESTIMA MAGDALENO GFR IS code = 1092) sq m NOT ACCURATE CREATININE CLEARANCE IN PREDICTING GLOMERULAR FILTRATION RATE . ESTIMATED GFR I S NOT APPLICABLE FOR DIALYSIS PATIEN TS. POCT-GLUCOSE [id number] 17:51:00 Test Item Value Reference Range Interpretation Comments POC-GLUCOSE METER > mg/dL 70-110 HH OUTSIDE ME ASURING (BEAKER) (test code RANGETES MAGDALENO AT [place] [address] = 1538) [facility] [address] POCT-GLUCOSE [id number] 12:17:00 Test Item Value Reference Range Interpretation Comments POC-GLUCOSE METER > mg/dL 70-110 HH OUTSIDE ME ASURING (BEAKER) (test code RANGENot ified RN or MD = 4044) Patient refused repeat test/TESTED AT [address] [address] URINALYSIS W/ [id number] 10:06:00 Test Item Value Reference Range Interpretation Comments COLOR (BEAKER) (test code = 470) Light Yellow CLARITY (BEAKER) (test code = Clear 469) SPECIFIC GRAVITY UA (BEAKER) 1.018 1.001-1.035 (test code = 468) PH UA (BEAKER) (test code = 467) 6.0 5.0-8.0 PROTEIN UA (BEAKER) (test code = 50 mg/dL Negative A 464) GLUCOSE UA (BEAKER) (test code = >1000 mg/dL Negative A 365) KETONES UA (BEAKER) (test code = Negative Negative 371) BILIRUBIN UA (BEAKER) (test code Negative Negative = 462) BLOOD UA (BEAKER) (test code = Trace Negative A 461) NITRITE UA (BEAKER) (test code = Negative Negative 465) LEUKOCYTE ESTERASE UA (BEAKER) Negative Negative (test code = 466) UROBILINOGEN UA (BEAKER) (test 0.2 mg/dL 0.2-1.0 code = 463) RBC UA (BEAKER) (test code = 1 /HPF 519) WBC UA (BEAKER) (test code = < /HPF 520) BACTERIA (BEAKER) (test code = Rare 517) SQUAMOUS EPITHELIAL (BEAKER) 2 /HPF (test code = 516) SOURCE(BEAKER) (test code = 2795) POCT-GLUCOSE [id number] 07:31:00 Test Item Value Reference Range Interpretation Comments POC-GLUCOSE METER 365 mg/dL 70-[address] [facility] 6720 (BEAKER) (test code = PAUL Ciro [facility] 1538) [address] RAD, CHEST, 1 VIEW, NON [id number] 00:14:00Reason for exam:->SHORTNESS OF BREATHReason for exam:->COUGHIs [...] fibrosis. Superimposed acute infection should be excluded clinic ally. Signed: Sydney Crump MDReport Verified Date/Time: 06/15/2018 00:14:15 Reading Location: [id number] Reading Room TROPONIN [id number] 00:11:00 Test Item Value Reference Range Interpretation Comments TROPONIN I (BEAKER) (test code = 397) < ng/mL 0.00-0.03 Troponin I (TnI) levels [...] failure, acidosis, acute neurological disease, and persistent tachyarrhythmia.[id number] 00:04:00 Test Item Value Reference Range Interpretation Comments MAGNESIUM (BEAKER) (test code = 1.5 mg/dL 1.6-2.6 L 627) BASIC METABOLIC [id number] 00:04:00 Test Item Value Reference Range Interpretation Comments SODIUM (BEAKER) 138 meq/L 136-145 (test code = 381) POTASSIUM (BEAKER) 4.1 meq/L 3.5-5.1 (test code = 379) CHLORIDE (BEAKER) 102 meq/L 98-107 (test code = 382) CO2 (BEAKER) (test 28 meq/L 22-29 code = 355) BLOOD UREA NITROGEN 9 mg/dL 7-21 (BEAKER) (test code = 354) CREATININE (BEAKER) 0.65 mg/dL 0.57-1.25 (test code = 358) GLUCOSE RANDOM 133 mg/dL 70-105 H (BEAKER) (test code = 652) CALCIUM (BEAKER) 8.7 mg/dL 8.4-10.2 (test code = 697) EGFR (BEAKER) (test 135 mL/min/1.73 ESTIM ATED GFR IS code = 1092) sq m NOT ACCURATE CREATININE CLEARANCE IN PREDICTING GLOMERULAR FILTRATION RATE . ESTIMATED GFR I S NOT APPLICABLE FOR DIALYSIS PATIEN TS. CBC W/PLT COUNT & AUTO [id number] 23:42:00 Test Item Value Reference Range Interpretation Comments WHITE BLOOD CELL COUNT (BEAKER) 12.0 K/ L 3.5-10.5 H (test code = 775) RED BLOOD CELL COUNT (BEAKER) 4.14 M/ L 3.93-5.22 (test code = 761) HEMOGLOBIN (BEAKER) (test code = 10.9 GM/DL 11.2-15.7 L 410) HEMATOCRIT (BEAKER) (test code = 35.8 % 34.1-44.9 411) MEAN CORPUSCULAR VOLUME (BEAKER) 86.5 fL 79.4-94.8 (test code = 753) MEAN CORPUSCULAR HEMOGLOBIN 26.3 pg 25.6-32.2 (BEAKER) (test code = 751) MEAN CORPUSCULAR HEMOGLOBIN CONC 30.4 GM/DL 32.2-35.5 L (BEAKER) (test code = 752) RED CELL DISTRIBUTION WIDTH 17.1 % 11.7-14.4 H (BEAKER) (test code = 412) PLATELET COUNT (BEAKER) (test 366 K/CU MM 150-450 code = 756) MEAN PLATELET VOLUME (BEAKER) 11.0 fL 9.4-12.3 (test code = 754) NUCLEATED RED BLOOD CELLS 0 /100 WBC 0-0 (BEAKER) (test code = 413) NEUTROPHILS RELATIVE PERCENT 65 % (BEAKER) (test code = 429) LYMPHOCYTES RELATIVE PERCENT 22 % (BEAKER) (test code = 430) MONOCYTES RELATIVE PERCENT 8 % (BEAKER) (test code = 431) EOSINOPHILS RELATIVE PERCENT 5 % (BEAKER) (test code = 432) BASOPHILS RELATIVE PERCENT 0 % (BEAKER) (test code = 437) NEUTROPHILS ABSOLUTE COUNT 7.82 K/ L 1.56-6.13 H (BEAKER) (test code = 670) LYMPHOCYTES ABSOLUTE COUNT 2.61 K/ L 1.18-3.74 (BEAKER) (test code = 414) MONOCYTES ABSOLUTE COUNT (BEAKER) 0.99 K/ L 0.24-0.36 H (test code = 415) EOSINOPHILS ABSOLUTE COUNT 0.54 K/ L 0.04-0.36 H (BEAKER) (test code = 416) BASOPHILS ABSOLUTE COUNT (BEAKER) 0.04 K/ L 0.01-0.08 (test code = 417) IMMATURE GRANULOCYTES-RELATIVE 0 % 0-1 PERCENT (BEAKER) (test code = 2801) POCT-LACTIC ACID, [id number] 23:36:00 Test Item Value Reference Range Interpretation Comments POC-LACTIC ACID, 1.0 mmol/L 0.9-1.7 TESTED AT [facility] 6720 VENOUS (BEAKER) (test [place] code = 2805) [address] FUNGUS CULTURE + [id number] 11:24:00 Test Item Value Reference Range Interpretation Comments CULTURE (BEAKER) A 2+ Clau glabrata (test code = 1095) FUNGUS SMEAR No fungi seen (BEAKER) (test code = 1406) Previously reported organism is no longer reported. Please contact the Microbiology Department for additional information.[facility] RESPIRATORY CULTURE 2018-05-17 17:12:00 Test Item Value Reference Range Interpretation Comments CULTURE (BEAKER) PSEUDOMONAS A <1+ Pseudom onas (test code = 1095) AERUGINOSA aeruginos a (MUCOID-PHENOTYPE (Mucoid-ph enotype ) ) Amikacin (test code Susceptible 0-16 S = 1) , Resistant <0 or >16 Aztreonam (test Susceptible 0-8 , S code = 32) Resistant <0 or >8 Cefepime (test code Susceptible 0-8 , S = 51) Resistant <0 or >8 Ceftazidime (test Susceptible 0-8 , S code = 27) Resistant <0 or >8 Ciprofloxacin (test Susceptible 0-1 , R code = 7) Resistant <0 or >1 Doripenem (test Susceptible 0-2 , R code = 100) Resistant <0 or >2 Gentamicin (test Susceptible 0-4 , S code = 18) Resistant <0 or >4 Imipenem (test code Susceptible 0-2 , R = 19) Resistant <0 or >2 Levofloxacin (test Susceptible 0-2 , S code = 22) Resistant <0 or >2 Meropenem (test Susceptible 0-2 , S code = 34) Resistant <0 or >2 Piperacillin (test Susceptible 0-16 R code = 24) , Resistant <0 or >16 Piperacillin + Susceptible 0-16 R Tazobactam (test , Resistant <0 or code = 29) >16 Tobramycin (test Susceptible 0-4 , S code = 25) Resistant <0 or >4 CULTURE (BEAKER) PSEUDOMONAS A <1+ Pseudom onas (test code = 1095) AERUGINOSA aeruginos aof a second type Amikacin (test code Susceptible 0-16 S = 1) , Resistant <0 or >16 Aztreonam (test Susceptible 0-8 , S code = 32) Resistant <0 or >8 Cefepime (test code Susceptible 0-8 , S = 51) Resistant <0 or >8 Ceftazidime (test Susceptible 0-8 , S code = 27) Resistant <0 or >8 Ciprofloxacin (test Susceptible 0-1 , R code = 7) Resistant <0 or >1 Doripenem (test Susceptible 0-2 , R code = 100) Resistant <0 or >2 Gentamicin (test Susceptible 0-4 , R code = 18) Resistant <0 or >4 Imipenem (test code Susceptible 0-2 , R = 19) Resistant <0 or >2 Levofloxacin (test Susceptible 0-2 , R code = 22) Resistant <0 or >2 Meropenem (test Susceptible 0-2 , R code = 34) Resistant <0 or >2 Piperacillin (test Susceptible 0-16 S code = 24) , Resistant <0 or >16 Piperacillin + Susceptible 0-16 S Tazobactam (test , Resistant <0 or code = 29) >16 Tobramycin (test Susceptible 0-4 , S code = 25) Resistant <0 or >4 CULTURE (BEAKER) PSEUDOMONAS A <1+ Pseudom onas (test code = 1095) AERUGINOSA aeruginos aof a third type Amikacin (test code Susceptible 0-16 S = 1) , Resistant <0 or >16 Aztreonam (test Susceptible 0-8 , S code = 32) Resistant <0 or >8 Cefepime (test code Susceptible 0-8 , S = 51) Resistant <0 or >8 Ceftazidime (test Susceptible 0-8 , S code = 27) Resistant <0 or >8 Ciprofloxacin (test Susceptible 0-1 , R code = 7) Resistant <0 or >1 Doripenem (test Susceptible 0-2 , R code = 100) Resistant <0 or >2 Gentamicin (test Susceptible 0-4 , S code = 18) Resistant <0 or >4 Imipenem (test code Susceptible 0-2 , R = 19) Resistant <0 or >2 Levofloxacin (test Susceptible 0-2 , R code = 22) Resistant <0 or >2 Meropenem (test Susceptible 0-2 , S code = 34) Resistant <0 or >2 Piperacillin (test Susceptible 0-16 S code = 24) , Resistant <0 or >16 Piperacillin + Susceptible 0-16 S Tazobactam (test , Resistant <0 or code = 29) >16 Tobramycin (test Susceptible 0-4 , S code = 25) Resistant <0 or >4 1+ Normal respiratory derick presentSPIN/CONCENTRATION [id number] 06:32:00 Test Item Value Reference Range Interpretation Comments CONCENTRATION CHARGED ([facility]) (test Done code = 2657) POCT-GLUCOSE [id number] 17:10:00 Test Item Value Reference Range Interpretation Comments POC-GLUCOSE METER 338 mg/dL 70-110 H TESTED AT [place] [address] ([facility]) (test code = PAUL Tanner [place] 1538) [address] POCT-GLUCOSE [id number] 12:26:00 Test Item Value Reference Range Interpretation Comments POC-GLUCOSE METER 127 mg/dL 70-110 H TESTED AT [place] [address] ([facility]) (test code = PAUL Tanner [place] 1538) [address] POCT-GLUCOSE [id number] 08:06:00 Test Item Value Reference Range Interpretation Comments POC-GLUCOSE METER 174 mg/dL 70-110 H TESTED AT [place] [address] ([facility]) (test code = PAUL Tanner [place] 1538) [address] POCT-GLUCOSE [id number] 21:28:00 Test Item Value Reference Range Interpretation Comments POC-GLUCOSE METER 205 mg/dL 70-110 H TESTED AT [place] [address] ([facility]) (test code = PAUL T[place] 1538) [address] POCT-GLUCOSE [id number] 17:44:00 Test Item Value Reference Range Interpretation Comments POC-GLUCOSE METER 229 mg/dL 70-110 H TESTED AT [place] [address] ([facility]) (test code = PAUL Tanner [place] 1538) [address] POCT-GLUCOSE [id number] 12:08:00 Test Item Value Reference Range Interpretation Comments POC-GLUCOSE METER 131 mg/dL 70-110 H TESTED AT [place] [address] (SIMI) (test code = [place] 1538) [address] RAD, ABDOMEN/KUB, 1 VIEW [id number] 10:55:00Reason for exam:->evaluate stool burden, abdominal distention, cf patientShould this be performedat the bedside?->NoFINAL REPORT Two abdomen images compared to February 25, 2018 Discussion: Nonspecific bowel gas pattern with moderate retained feces. No evidence of bowel obstruction. No evidence of free intraperitoneal air. Regional bones are unremarkable. Signed: Flip Choeeport Verified Date/Time: 04/19/2018 10:55:54 Reading Location: [facility] Radiology Reading Room U/S, ABDOMINAL, [id number] 08:54:00Abdomen limited area? Add comment if clarification [...] No mass. No shadowing calculus. No hydronephrosis. IVC/Aorta: Segments partially seen. Unremarkable. Impression: Fatty replacement of pancreas, otherwise unremarkable exam. Signed: Everardo Castellanos MDReport Verified Date/Time: 04/19/2018 08:54:16 Reading Location: [facility] [id number] Ultrasound Reading Room POCT-GLUCOSE [id number] 08:18:00 Test Item Value Reference Range Interpretation Comments POC-GLUCOSE METER 105 mg/dL 70-110 TESTED AT [place] [address] ([facility]) (test code = PAUL Tanner [facility] 1538) [address] POCT-GLUCOSE [id number] 08:06:00 Test Item Value Reference Range Interpretation Comments POC-GLUCOSE METER 74 mg/dL 70-110 TESTED AT [place] [address] ([facility]) (test code = [facility] Ciro [facility] [address] 1538) BASIC METABOLIC [id number] 06:31:00 Test Item Value Reference Range Interpretation Comments SODIUM (BEAKER) 138 meq/L 136-145 (test code = 381) POTASSIUM (BEAKER) 5.0 meq/L 3.5-5.1 (test code = 379) CHLORIDE (BEAKER) 97 meq/L 98-107 L (test code = 382) CO2 (BEAKER) (test 33 meq/L 22-29 H code = 355) BLOOD UREA NITROGEN 25 mg/dL 7-21 H (BEAKER) (test code = 354) CREATININE (BEAKER) 0.82 mg/dL 0.57-1.25 (test code = 358) GLUCOSE RANDOM 107 mg/dL 70-105 H ([facility]) (test code = 652) CALCIUM (BEAKER) 8.1 mg/dL 8.4-10.2 L (test code = 697) EGFR ([facility]) (test 103 mL/min/1.73 ESTIM ATED GFR IS code = 1092) sq m NOT ACCURATE CREATININE CLEARANCE IN PREDICTING GLOMERULAR FILTRATION RATE . ESTIMATED GFR I S NOT APPLICABLE FOR DIALYSIS PATIEN TS. POCT-GLUCOSE [id number] 21:28:00 Test Item Value Reference Range Interpretation Comments POC-GLUCOSE METER 63 mg/dL 70-110 L Notified Ciro Polanco MD/TESTED AT ([facility]) (test code = [place] [address] [place] 1538) [facility] [address] POCT-GLUCOSE [id number] 17:32:00 Test Item Value Reference Range Interpretation Comments POC-GLUCOSE METER 217 mg/dL 70-110 H TESTED AT [place] [address] ([facility]) (test code = NAOMITAYO Tanner [facility] 1538) [address] POCT-GLUCOSE [id number] 16:55:00 Test Item Value Reference Range Interpretation Comments POC-GLUCOSE METER 75 mg/dL 70-110 TESTED AT [place] [address] ([facility]) (test code = PAUL Tanner [facility] [address] 1538) BASIC METABOLIC [id number] 12:35:00 Test Item Value Reference Range Interpretation Comments SODIUM (BEAKER) 141 meq/L 136-145 (test code = 381) POTASSIUM (BEAKER) 4.6 meq/L 3.5-5.1 (test code = 379) CHLORIDE (BEAKER) 102 meq/L 98-107 (test code = 382) CO2 (BEAKER) (test 33 meq/L 22-29 H code = 355) BLOOD UREA NITROGEN 20 mg/dL 7-21 (AKER) (test code = 354) CREATININE (BEAKER) 0.74 mg/dL 0.57-1.25 (test code = 358) GLUCOSE RANDOM 44 mg/dL 70-105 L (BEAKER) (test code = 652) CALCIUM (BEAKER) 8.1 mg/dL 8.4-10.2 L (test code = 697) EGFR (BEAKER) (test 116 mL/min/1.73 ESTIM ATED GFR IS code = 1092) sq m NOT ACCURATE CREATININE CLEARANCE IN PREDICTING GLOMERULAR FILTRATION RATE . ESTIMATED GFR I S NOT APPLICABLE FOR DIALYSIS PATIEN TS. POCT-GLUCOSE [id number] 12:06:00 Test Item Value Reference Range Interpretation Comments POC-GLUCOSE METER 43 mg/dL 70-110 L Notified Ciro Polanco MD/TESTED AT ([facility]) (test code = [place] [address] [place] 1538) [facility] [address] [id number] 12:01:00 Test Item Value Reference Range Interpretation Comments MAGNESIUM (BEAKER) (test code = 1.8 mg/dL 1.6-2.6 627) CBC W/PLT COUNT & AUTO [id number] 11:18:00 Test Item Value Reference Range Interpretation Comments WHITE BLOOD CELL COUNT (BEAKER) 11.8 K/ L 3.5-10.5 H (test code = 775) RED BLOOD CELL COUNT (BEAKER) 3.37 M/ L 3.93-5.22 L (test code = 761) HEMOGLOBIN (BEAKER) (test code = 8.8 GM/DL 11.2-15.7 L 410) HEMATOCRIT (BEAKER) (test code = 29.5 % 34.1-44.9 L 411) MEAN CORPUSCULAR VOLUME (BEAKER) 87.5 fL 79.4-94.8 (test code = 753) MEAN CORPUSCULAR HEMOGLOBIN 26.1 pg 25.6-32.2 (BEAKER) (test code = 751) MEAN CORPUSCULAR HEMOGLOBIN CONC 29.8 GM/DL 32.2-35.5 L (BEAKER) (test code = 752) RED CELL DISTRIBUTION WIDTH 16.0 % 11.7-14.4 H (BEAKER) (test code = 412) PLATELET COUNT (BEAKER) (test 294 K/CU MM 150-450 code = 756) MEAN PLATELET VOLUME (BEAKER) 10.7 fL 9.4-12.3 (test code = 754) NUCLEATED RED BLOOD CELLS 0 /100 WBC 0-0 (BEAKER) (test code = 413) NEUTROPHILS RELATIVE PERCENT 76 % (BEAKER) (test code = 429) LYMPHOCYTES RELATIVE PERCENT 12 % (BEAKER) (test code = 430) MONOCYTES RELATIVE PERCENT 7 % (BEAKER) (test code = 431) EOSINOPHILS RELATIVE PERCENT 4 % (BEAKER) (test code = 432) BASOPHILS RELATIVE PERCENT 0 % (BEAKER) (test code = 437) NEUTROPHILS ABSOLUTE COUNT 8.92 K/ L 1.56-6.13 H (BEAKER) (test code = 670) LYMPHOCYTES ABSOLUTE COUNT 1.36 K/ L 1.18-3.74 (BEAKER) (test code = 414) MONOCYTES ABSOLUTE COUNT (BEAKER) 0.86 K/ L 0.24-0.36 H (test code = 415) EOSINOPHILS ABSOLUTE COUNT 0.49 K/ L 0.04-0.36 H (BEAKER) (test code = 416) BASOPHILS ABSOLUTE COUNT (BEAKER) 0.03 K/ L 0.01-0.08 (test code = 417) IMMATURE GRANULOCYTES-RELATIVE 1 % 0-1 PERCENT (BEAKER) (test code = 2801) POCT-GLUCOSE [id number] 07:31:00 Test Item Value Reference Range Interpretation Comments POC-GLUCOSE METER 275 mg/dL 70-110 H TESTED AT [facility] 6720 (BEAKER) (test code = PAUL Tanner [facility] 1538) [address] POCT-GLUCOSE [id number] 22:01:00 Test Item Value Reference Range Interpretation Comments POC-GLUCOSE METER 109 mg/dL 70-110 TESTED AT [place] [address] ([facility]) (test code = PAUL Tanner [facility] 1538) [address] POCT-GLUCOSE [id number] 21:11:00 Test Item Value Reference Range Interpretation Comments POC-GLUCOSE METER 61 mg/dL 70-110 L Notified Ciro Polanco MD/TESTED AT ([facility]) (test code = [address] 1538) [facility] [address] 0 POCT-GLUCOSE [id number] 17:41:00 Test Item Value Reference Range Interpretation Comments POC-GLUCOSE METER 68 mg/dL 70-110 L TESTED AT [place] [address] ([facility]) (test code = PAUL Tanner [facility] [address] 1538) POCT-GLUCOSE [id number] 16:51:00 Test Item Value Reference Range Interpretation Comments POC-GLUCOSE METER 74 mg/dL 70-110 TESTED AT [place] [address] ([facility]) (test code = PAUL Tanner [facility] [address] 1538) URINALYSIS W/ [id number] 14:57:00 Test Item Value Reference Range Interpretation Comments COLOR (BEAKER) (test code = Yellow 470) CLARITY (BEAKER) (test code = Clear 469) SPECIFIC GRAVITY UA (BEAKER) 1.009 1.001-1.035 (test code = 468) PH UA (BEAKER) (test code = 7.0 5.0-8.0 467) PROTEIN UA (BEAKER) (test code 30 mg/dL Negative A = 464) GLUCOSE UA (BEAKER) (test code Negative Negative = 365) KETONES UA (BEAKER) (test code Negative Negative = 371) BILIRUBIN UA (BEAKER) (test Negative Negative code = 462) BLOOD UA (BEAKER) (test code = Negative Negative 461) NITRITE UA (BEAKER) (test code Negative Negative = 465) LEUKOCYTE ESTERASE UA (BEAKER) Negative Negative (test code = 466) UROBILINOGEN UA (BEAKER) (test 0.2 mg/dL 0.2-1.0 code = 463) RBC UA (BEAKER) (test code = < /HPF 519) WBC UA (BEAKER) (test code = 23 /HPF 520) SQUAMOUS EPITHELIAL (BEAKER) 16 /HPF (test code = 516) SOURCE(BEAKER) (test code = Urine, Voided 7998) [id number] 14:23:00 Test Item Value Reference Range Interpretation Comments MAGNESIUM (BEAKER) (test code = 0.9 mg/dL 1.6-2.6 LL 627) BASIC METABOLIC [id number] 11:55:00 Test Item Value Reference Range Interpretation Comments SODIUM (BEAKER) 146 meq/L 136-145 H Discordant S ODIUM (test code = 381) result Com pared to previous result , Clinical correl ation required. POTASSIUM (BEAKER) 2.3 meq/L 3.5-5.1 LL (test code = 379) CHLORIDE (BEAKER) 102 meq/L 98-107 (test code = 382) CO2 (BEAKER) (test 31 meq/L 22-29 H code = 355) BLOOD UREA NITROGEN 19 mg/dL 7-21 (BEAKER) (test code = 354) CREATININE (BEAKER) 0.86 mg/dL 0.57-1.25 (test code = 358) GLUCOSE RANDOM 63 mg/dL 70-105 L (BEAKER) (test code = 652) CALCIUM (BEAKER) 7.8 mg/dL 8.4-10.2 L (test code = 697) EGFR (BEAKER) (test 97 mL/min/1.73 ESTIMA MAGDALENO GFR IS NOT code = 1092) sq m ACCURATE CREATININE JI SOLITARIO IN PREDICTING GLOMERULAR FILTRATION RATE . ESTIMATED GFR I S NOT APPLICABLE FOR DIALYSIS PATIEN TS. CBC W/PLT COUNT & AUTO [id number] 11:34:00 Test Item Value Reference Range Interpretation Comments WHITE BLOOD CELL COUNT (BEAKER) 11.6 K/ L 3.5-10.5 H (test code = 775) RED BLOOD CELL COUNT (BEAKER) 3.50 M/ L 3.93-5.22 L (test code = 761) HEMOGLOBIN (BEAKER) (test code = 9.1 GM/DL 11.2-15.7 L 410) HEMATOCRIT (BEAKER) (test code = 30.1 % 34.1-44.9 L 411) MEAN CORPUSCULAR VOLUME (BEAKER) 86.0 fL 79.4-94.8 (test code = 753) MEAN CORPUSCULAR HEMOGLOBIN 26.0 pg 25.6-32.2 (BEAKER) (test code = 751) MEAN CORPUSCULAR HEMOGLOBIN CONC 30.2 GM/DL 32.2-35.5 L (BEAKER) (test code = 752) RED CELL DISTRIBUTION WIDTH 15.7 % 11.7-14.4 H (BEAKER) (test code = 412) PLATELET COUNT (BEAKER) (test 316 K/CU MM 150-450 code = 756) MEAN PLATELET VOLUME (BEAKER) 10.9 fL 9.4-12.3 (test code = 754) NUCLEATED RED BLOOD CELLS 0 /100 WBC 0-0 (BEAKER) (test code = 413) NEUTROPHILS RELATIVE PERCENT 73 % (BEAKER) (test code = 429) LYMPHOCYTES RELATIVE PERCENT 16 % (BEAKER) (test code = 430) MONOCYTES RELATIVE PERCENT 6 % (BEAKER) (test code = 431) EOSINOPHILS RELATIVE PERCENT 4 % (BEAKER) (test code = 432) BASOPHILS RELATIVE PERCENT 0 % (BEAKER) (test code = 437) NEUTROPHILS ABSOLUTE COUNT 8.54 K/ L 1.56-6.13 H (BEAKER) (test code = 670) LYMPHOCYTES ABSOLUTE COUNT 1.81 K/ L 1.18-3.74 (BEAKER) (test code = 414) MONOCYTES ABSOLUTE COUNT (BEAKER) 0.67 K/ L 0.24-0.36 H (test code = 415) EOSINOPHILS ABSOLUTE COUNT 0.46 K/ L 0.04-0.36 H (BEAKER) (test code = 416) BASOPHILS ABSOLUTE COUNT (BEAKER) 0.05 K/ L 0.01-0.08 (test code = 417) IMMATURE GRANULOCYTES-RELATIVE 1 % 0-1 PERCENT (BEAKER) (test code = 2802) POCT-GLUCOSE [id number] 08:27:00 Test Item Value Reference Range Interpretation Comments POC-GLUCOSE METER 128 mg/dL 70-[address] [facility] 67[address] (BEAKER) (test code = [place] 1538) [address] POCT-GLUCOSE [id number] 21:14:00 Test Item Value Reference Range Interpretation Comments POC-GLUCOSE METER 241 mg/dL 70-110 H TESTED AT [place] [address] ([facility]) (test code = PAUL Tanner [facility] 1538) [id number] POCT-GLUCOSE [id number] 18:51:00 Test Item Value Reference Range Interpretation Comments POC-GLUCOSE METER 140 mg/dL 70-110 H TESTED AT [place] [address] ([facility]) (test code = PAUL Tanner [facility] 1538) [id number] POCT-GLUCOSE [id number] 18:06:00 Test Item Value Reference Range Interpretation Comments POC-GLUCOSE METER 31 mg/dL 70-110 LL TESTED AT [place] [address] ([facility]) ([facility] [address] 1538) POCT-GLUCOSE [id number] 12:58:00 Test Item Value Reference Range Interpretation Comments POC-GLUCOSE METER 72 mg/dL 70-110 TESTED AT [place] [address] ([facility]) (test code = PAUL Tanner [facility] [address] 1538) POCT-GLUCOSE [id number] 08:21:00 Test Item Value Reference Range Interpretation Comments POC-GLUCOSE METER 162 mg/dL 70-110 H TESTED AT [place] [address] ([facility]) (test code = [facility] Ciro [facility] 1538) [address] [id number] 06:55:00 Test Item Value Reference Range Interpretation Comments BLOOD UREA NITROGEN ([facility]) (test 15 mg/dL 05-14 code = 354) [id number] 06:55:00 Test Item Value Reference Range Interpretation Comments CREATININE ([facility]) 0.97 mg/dL 0.57-1.25 (test code = 358) EGFR ([facility]) (test 85 mL/min/1.73 ESTIMA MAGDALENO GFR IS code = 1092) sq m NOT ACCURATE CREATININE CLEARANCE IN PREDICTING GLOMERULAR FILTRATION RATE . ESTIMATED GFR I S NOT APPLICABLE FOR DIALYSIS PATIEN TS. POCT-GLUCOSE [id number] 21:28:00 Test Item Value Reference Range Interpretation Comments POC-GLUCOSE METER 141 mg/dL 70-110 H TESTED AT [place] [address] ([facility]) (test code = [facility] Ciro [facility] 1538) [address] POCT-GLUCOSE [id number] 17:29:00 Test Item Value Reference Range Interpretation Comments POC-GLUCOSE METER 122 mg/dL 70-110 H TESTED AT [place] [address] ([facility]) (test code = PAUL Tanner [facility] 1538) [address] POCT-GLUCOSE [id number] 11:22:00 Test Item Value Reference Range Interpretation Comments POC-GLUCOSE METER 66 mg/dL 70-[address] [facility] 6720 (BEAKER) (test code = PAUL Tanner [facility] [address] 1538) POCT-GLUCOSE [id number] 11:22:00 Test Item Value Reference Range Interpretation Comments POC-GLUCOSE METER 224 mg/dL 70-110 H TESTED AT [place] [address] ([facility]) (test code = [facility] Ciro [facility] 1538) [address] COMPREHENSIVE METABOLIC [id number] 07:22:00 Test Item Value Reference Range Interpretation Comments TOTAL PROTEIN 6.5 gm/dL 6.0-8.3 (BEAKER) (test code = 770) ALBUMIN (BEAKER) 2.7 g/dL 3.5-5.0 L (test code = 1145) ALKALINE PHOSPHATASE 113 U/L 40-150 (BEAKER) (test code = 346) BILIRUBIN TOTAL 0.1 mg/dL 0.2-1.2 L (BEAKER) (test code = 377) SODIUM (BEAKER) (test 135 meq/L 136-145 L code = 381) POTASSIUM (BEAKER) 3.8 meq/L 3.5-5.1 (test code = 379) CHLORIDE (BEAKER) 104 meq/L 98-107 (test code = 382) CO2 (BEAKER) (test 23 meq/L 22-29 code = 355) BLOOD UREA NITROGEN 17 mg/dL 7-21 (BEAKER) (test code = 354) CREATININE (BEAKER) 1.15 mg/dL 0.57-1.25 (test code = 358) GLUCOSE RANDOM 239 mg/dL 70-105 H (BEAKER) (test code = 652) CALCIUM (BEAKER) 8.5 mg/dL 8.4-10.2 (test code = 697) AST (SGOT) (BEAKER) 14 U/L 5-34 (test code = 353) ALT (SGPT) (BEAKER) 6 U/L 6-55 (test code = 347) EGFR (BEAKER) (test 70 mL/min/1.73 ESTIMA MAGDALENO GFR IS code = 1092) sq m NOT ACCURATE CREATININE CLEARANCE IN PREDICTING GLOMERULAR FILTRATION RATE . ESTIMATED GFR I S NOT APPLICABLE FOR DIALYSIS PATIEN TS. CBC W/PLT COUNT & AUTO [id number] 06:59:00 Test Item Value Reference Range Interpretation Comments WHITE BLOOD CELL COUNT (BEAKER) 10.6 K/ L 3.5-10.5 H (test code = 775) RED BLOOD CELL COUNT (BEAKER) 3.57 M/ L 3.93-5.22 L (test code = 761) HEMOGLOBIN (BEAKER) (test code = 9.6 GM/DL 11.2-15.7 L 410) HEMATOCRIT (BEAKER) (test code = 31.1 % 34.1-44.9 L 411) MEAN CORPUSCULAR VOLUME (BEAKER) 87.1 fL 79.4-94.8 (test code = 753) MEAN CORPUSCULAR HEMOGLOBIN 26.9 pg 25.6-32.2 (BEAKER) (test code = 751) MEAN CORPUSCULAR HEMOGLOBIN CONC 30.9 GM/DL 32.2-35.5 L (BEAKER) (test code = 752) RED CELL DISTRIBUTION WIDTH 14.9 % 11.7-14.4 H (BEAKER) (test code = 412) PLATELET COUNT (BEAKER) (test 291 K/CU MM 150-450 code = 756) MEAN PLATELET VOLUME (BEAKER) 11.0 fL 9.4-12.3 (test code = 754) NUCLEATED RED BLOOD CELLS 0 /100 WBC 0-0 (BEAKER) (test code = 413) NEUTROPHILS RELATIVE PERCENT 78 % (BEAKER) (test code = 429) LYMPHOCYTES RELATIVE PERCENT 14 % (BEAKER) (test code = 430) MONOCYTES RELATIVE PERCENT 6 % (BEAKER) (test code = 431) EOSINOPHILS RELATIVE PERCENT 1 % (BEAKER) (test code = 432) BASOPHILS RELATIVE PERCENT 0 % (BEAKER) (test code = 437) NEUTROPHILS ABSOLUTE COUNT 8.22 K/ L 1.56-6.13 H (BEAKER) (test code = 670) LYMPHOCYTES ABSOLUTE COUNT 1.53 K/ L 1.18-3.74 (BEAKER) (test code = 414) MONOCYTES ABSOLUTE COUNT (BEAKER) 0.65 K/ L 0.24-0.36 H (test code = 415) EOSINOPHILS ABSOLUTE COUNT 0.07 K/ L 0.04-0.36 (KIAKER) (test code = 416) BASOPHILS ABSOLUTE COUNT (AKER) 0.03 K/ L 0.01-0.08 (test code = 417) IMMATURE GRANULOCYTES-RELATIVE 1 % 0-1 PERCENT (AKER) (test code = 2801) POCT-GLUCOSE [id number] 23:01:00 Test Item Value Reference Range Interpretation Comments POC-GLUCOSE METER 411 mg/dL 70-110 HH Notified R N MD/TESTED (SIMI) (test code = AT [address] 1538) [facility] [address] POCT-GLUCOSE [id number] 18:29:00 Test Item Value Reference Range Interpretation Comments POC-GLUCOSE METER 216 mg/dL 70-110 H TESTED AT [place] [address] ([facility]) (test code = [facility] 1538) [address] POCT-GLUCOSE [id number] 12:41:00 Test Item Value Reference Range Interpretation Comments POC-GLUCOSE METER > mg/dL 70-110 HH OUTSIDE ME ASURING ([facility]) (test code RANGETES MAGDALENO AT [place] [address] = 1538) [facility] [address] HEMOGLOBIN [id number] 09:11:00 Test Item Value Reference Range Interpretation Comments HEMOGLOBIN A1C ([facility]) (test code = 13.8 % 4.3-6.1 H 368) POCT-GLUCOSE [id number] 08:12:00 Test Item Value Reference Range Interpretation Comments POC-GLUCOSE METER 72 mg/dL 70-110 TESTED AT [place] [address] ([facility]) (test code = [facility] [address] 1538) [id number] 06:33:00 Test Item Value Reference Range Interpretation Comments BLOOD UREA NITROGEN ([facility]) (test 13 mg/dL 05-14 code = 354) [id number] 06:33:00 Test Item Value Reference Range Interpretation Comments CREATININE ([facility]) 1.39 mg/dL 0.57-1.25 H (test code = 358) EGFR ([facility]) (test 56 mL/min/1.73 ESTIMA MAGDALENO GFR IS code = 1092) sq m NOT ACCURATE CREATININE CLEARANCE IN PREDICTING GLOMERULAR FILTRATION RATE . ESTIMATED GFR I S NOT APPLICABLE FOR DIALYSIS PATIEN TS. CBC W/PLT COUNT & AUTO [id number] 06:24:00 Test Item Value Reference Range Interpretation Comments WHITE BLOOD CELL COUNT (BEAKER) 10.9 K/ L 3.5-10.5 H (test code = 775) RED BLOOD CELL COUNT (BEAKER) 3.84 M/ L 3.93-5.22 L (test code = 761) HEMOGLOBIN (BEAKER) (test code = 10.0 GM/DL 11.2-15.7 L 410) HEMATOCRIT (BEAKER) (test code = 32.7 % 34.1-44.9 L 411) MEAN CORPUSCULAR VOLUME (BEAKER) 85.2 fL 79.4-94.8 (test code = 753) MEAN CORPUSCULAR HEMOGLOBIN 26.0 pg 25.6-32.2 (BEAKER) (test code = 751) MEAN CORPUSCULAR HEMOGLOBIN CONC 30.6 GM/DL 32.2-35.5 L (BEAKER) (test code = 752) RED CELL DISTRIBUTION WIDTH 14.9 % 11.7-14.4 H (BEAKER) (test code = 412) PLATELET COUNT (BEAKER) (test 334 K/CU MM 150-450 code = 756) MEAN PLATELET VOLUME (BEAKER) 11.3 fL 9.4-12.3 (test code = 754) NUCLEATED RED BLOOD CELLS 0 /100 WBC 0-0 (BEAKER) (test code = 413) NEUTROPHILS RELATIVE PERCENT 90 % (BEAKER) (test code = 429) LYMPHOCYTES RELATIVE PERCENT 7 % (BEAKER) (test code = 430) MONOCYTES RELATIVE PERCENT 2 % (BEAKER) (test code = 431) EOSINOPHILS RELATIVE PERCENT 0 % (BEAKER) (test code = 432) BASOPHILS RELATIVE PERCENT 0 % (BEAKER) (test code = 437) NEUTROPHILS ABSOLUTE COUNT 9.77 K/ L 1.56-6.13 H (BEAKER) (test code = 670) LYMPHOCYTES ABSOLUTE COUNT 0.79 K/ L 1.18-3.74 L (BEAKER) (test code = 414) MONOCYTES ABSOLUTE COUNT (BEAKER) 0.25 K/ L 0.24-0.36 (test code = 415) EOSINOPHILS ABSOLUTE COUNT 0.00 K/ L 0.04-0.36 L (BEAKER) (test code = 416) BASOPHILS ABSOLUTE COUNT (BEAKER) 0.01 K/ L 0.01-0.08 (test code = 417) IMMATURE GRANULOCYTES-RELATIVE 1 % 0-1 PERCENT (BEAKER) (test code = 2801) POCT-GLUCOSE [id number] 02:09:00 Test Item Value Reference Range Interpretation Comments POC-GLUCOSE METER 260 mg/dL 70-[address] [facility] 6720 (BEAKER) (test code = PAUL [place] 1538) [address] RAD, CHEST, 1 VIEW, NON [id number] 20:00:00Reason for exam:->CHEST PAINIs the patient ?->UnknownShould this be performed [facility] the [facility]?->YesFINAL REPORT EXAMINATION: AP PORTABLE CHEST RADIOGRAPH CLINICAL [...] evaluation as clinically warranted. Signed: Brennon Alicia [facility] Verified Date/Time: 04/13/2018 20:00:46 Reading Location: [address] Reading Room KETONE, [id number] 18:36:00 Test Item Value Reference Range Interpretation Comments KETONES, BLOOD (BEAKER) (test code 0.1 mmol/L <0.4 = 1103) BASIC METABOLIC [id number] 18:18:00 Test Item Value Reference Range Interpretation Comments SODIUM (BEAKER) 132 meq/L 136-145 L (test code = 381) POTASSIUM (BEAKER) 4.5 meq/L 3.5-5.1 (test code = 379) CHLORIDE (BEAKER) 95 meq/L 98-107 L (test code = 382) CO2 (BEAKER) (test 22 meq/L 22-29 code = 355) BLOOD UREA NITROGEN 18 mg/dL 7-21 (BEAKER) (test code = 354) CREATININE (BEAKER) 2.19 mg/dL 0.57-1.25 H (test code = 358) GLUCOSE RANDOM 431 mg/dL 70-105 HH (BEAKER) (test code = 652) CALCIUM (BEAKER) 9.4 mg/dL 8.4-10.2 (test code = 697) EGFR (BEAKER) (test 33 mL/min/1.73 ESTIMA MAGDALENO GFR IS code = 1092) sq m NOT ACCURATE CREATININE CLEARANCE IN PREDICTING GLOMERULAR FILTRATION RATE . ESTIMATED GFR I S NOT APPLICABLE FOR DIALYSIS PATIEN TS. CBC W/PLT COUNT & AUTO [id number] 18:02:00 Test Item Value Reference Range Interpretation Comments WHITE BLOOD CELL COUNT (BEAKER) 13.1 K/ L 3.5-10.5 H (test code = 775) RED BLOOD CELL COUNT (BEAKER) 4.58 M/ L 3.93-5.22 (test code = 761) HEMOGLOBIN (BEAKER) (test code = 11.9 GM/DL 11.2-15.7 410) HEMATOCRIT (BEAKER) (test code = 38.9 % 34.1-44.9 411) MEAN CORPUSCULAR VOLUME (BEAKER) 84.9 fL 79.4-94.8 (test code = 753) MEAN CORPUSCULAR HEMOGLOBIN 26.0 pg 25.6-32.2 (BEAKER) (test code = 751) MEAN CORPUSCULAR HEMOGLOBIN CONC 30.6 GM/DL 32.2-35.5 L (BEAKER) (test code = 752) RED CELL DISTRIBUTION WIDTH 14.7 % 11.7-14.4 H (BEAKER) (test code = 412) PLATELET COUNT (BEAKER) (test 385 K/CU MM 150-450 code = 756) MEAN PLATELET VOLUME (BEAKER) 11.0 fL 9.4-12.3 (test code = 754) NUCLEATED RED BLOOD CELLS 0 /100 WBC 0-0 (BEAKER) (test code = 413) NEUTROPHILS RELATIVE PERCENT 95 % (BEAKER) (test code = 429) LYMPHOCYTES RELATIVE PERCENT 4 % (BEAKER) (test code = 430) MONOCYTES RELATIVE PERCENT 1 % (BEAKER) (test code = 431) EOSINOPHILS RELATIVE PERCENT 0 % (BEAKER) (test code = 432) BASOPHILS RELATIVE PERCENT 0 % (BEAKER) (test code = 437) NEUTROPHILS ABSOLUTE COUNT 12.46 K/ L 1.56-6.13 H (BEAKER) (test code = 670) LYMPHOCYTES ABSOLUTE COUNT 0.53 K/ L 1.18-3.74 L (BEAKER) (test code = 414) MONOCYTES ABSOLUTE COUNT (BEAKER) 0.08 K/ L 0.24-0.36 L (test code = 415) EOSINOPHILS ABSOLUTE COUNT 0.00 K/ L 0.04-0.36 L (BEAKER) (test code = 416) BASOPHILS ABSOLUTE COUNT (BEAKER) 0.01 K/ L 0.01-0.08 (test code = 417) IMMATURE GRANULOCYTES-RELATIVE 0 % 0-1 PERCENT (BEAKER) (test code = 2801) POCT-GLUCOSE [id number] 16:57:00 Test Item Value Reference Range Interpretation Comments POC-GLUCOSE METER 117 mg/dL 70-110 H TESTED AT [place] [address] ([facility]) (test code = PAUL Tanner [facility] 1538) [address] POCT-GLUCOSE [id number] 16:56:00 Test Item Value Reference Range Interpretation Comments POC-GLUCOSE METER 62 mg/dL 70-110 L Notified R Collin or ([facility]) (test code = Patien t refused repeat 1538) test/TESTED AT [place] [address] [facility] [address] POCT-GLUCOSE [id number] 12:23:00 Test Item Value Reference Range Interpretation Comments POC-GLUCOSE METER 81 mg/dL 70-110 TESTED AT [place] [address] ([facility]) (test code = PAUL Tanner [facility] [address] 1538) POCT-GLUCOSE [id number] 09:36:00 Test Item Value Reference Range Interpretation Comments POC-GLUCOSE METER 239 mg/dL 70-110 H TESTED AT [place] [address] ([facility]) (test code = PAUL Tanner [facility] 1538) [address] BUN AND [id number] 07:03:00 Test Item Value Reference Range Interpretation Comments BLOOD UREA NITROGEN 19 mg/dL 7-21 ([facility]) (test code = 354) CREATININE (BEAKER) 0.71 mg/dL 0.57-1.25 (test code = 358) EGFR (BEAKER) (test 122 mL/min/1.73 ESTIM ATED GFR IS code = 1092) sq m NOT ACCURATE CREATININE CLEARANCE IN PREDICTING GLOMERULAR FILTRATION RATE . ESTIMATED GFR I S NOT APPLICABLE FOR DIALYSIS PATIEN TS. POCT-GLUCOSE [id number] 17:46:00 Test Item Value Reference Range Interpretation Comments POC-GLUCOSE METER 147 mg/dL 70-110 H TESTED AT [place] [address] ([facility]) (test code = [facility] 1538) [address] POCT-GLUCOSE [id number] 13:26:00 Test Item Value Reference Range Interpretation Comments POC-GLUCOSE METER 105 mg/dL 70-110 TESTED AT [place] [address] ([facility]) (test code = [facility] 1538) [address] POCT-GLUCOSE [id number] 07:56:00 Test Item Value Reference Range Interpretation Comments POC-GLUCOSE METER 207 mg/dL 70-110 H TESTED AT [place] [address] ([facility]) (test code = [facility] 1538) [address] CBC W/PLT COUNT & AUTO [id number] 06:59:00 Test Item Value Reference Range Interpretation Comments WHITE BLOOD CELL COUNT (BEAKER) 8.4 K/ L 3.5-10.5 (test code = 775) RED BLOOD CELL COUNT (BEAKER) 3.67 M/ L 3.93-5.22 L (test code = 761) HEMOGLOBIN (BEAKER) (test code = 9.7 GM/DL 11.2-15.7 L 410) HEMATOCRIT (BEAKER) (test code = 32.9 % 34.1-44.9 L 411) MEAN CORPUSCULAR VOLUME (BEAKER) 89.6 fL 79.4-94.8 (test code = 753) MEAN CORPUSCULAR HEMOGLOBIN 26.4 pg 25.6-32.2 (BEAKER) (test code = 751) MEAN CORPUSCULAR HEMOGLOBIN CONC 29.5 GM/DL 32.2-35.5 L (BEAKER) (test code = 752) RED CELL DISTRIBUTION WIDTH 19.4 % 11.7-14.4 H (BEAKER) (test code = 412) PLATELET COUNT (BEAKER) (test 410 K/CU MM 150-450 code = 756) MEAN PLATELET VOLUME (BEAKER) 9.7 fL 9.4-12.3 (test code = 754) NUCLEATED RED BLOOD CELLS 0 /100 WBC 0-0 (BEAKER) (test code = 413) NEUTROPHILS RELATIVE PERCENT 53 % (BEAKER) (test code = 429) LYMPHOCYTES RELATIVE PERCENT 27 % (BEAKER) (test code = 430) MONOCYTES RELATIVE PERCENT 10 % (BEAKER) (test code = 431) EOSINOPHILS RELATIVE PERCENT 10 % (BEAKER) (test code = 432) BASOPHILS RELATIVE PERCENT 1 % (BEAKER) (test code = 437) NEUTROPHILS ABSOLUTE COUNT 4.48 K/ L 1.56-6.13 (BEAKER) (test code = 670) LYMPHOCYTES ABSOLUTE COUNT 2.27 K/ L 1.18-3.74 (BEAKER) (test code = 414) MONOCYTES ABSOLUTE COUNT (BEAKER) 0.80 K/ L 0.24-0.36 H (test code = 415) EOSINOPHILS ABSOLUTE COUNT 0.81 K/ L 0.04-0.36 H (BEAKER) (test code = 416) BASOPHILS ABSOLUTE COUNT (BEAKER) 0.04 K/ L 0.01-0.08 (test code = 417) IMMATURE GRANULOCYTES-RELATIVE 1 % 0-1 PERCENT (BEAKER) (test code = 2801) BUN AND [id number] 06:42:00 Test Item Value Reference Range Interpretation Comments BLOOD UREA NITROGEN 16 mg/dL 7-21 (BEAKER) (test code = 354) CREATININE (BEAKER) 0.67 mg/dL 0.57-1.25 (test code = 358) EGFR (BEAKER) (test 130 mL/min/1.73 ESTIM ATED GFR IS code = 1092) sq m NOT ACCURATE CREATININE CLEARANCE IN PREDICTING GLOMERULAR FILTRATION RATE . ESTIMATED GFR I S NOT APPLICABLE FOR DIALYSIS PATIEN TS. POCT-GLUCOSE [id number] 21:05:00 Test Item Value Reference Range Interpretation Comments POC-GLUCOSE METER 195 mg/dL 70-[address] [facility] 6720 ([facility]) (test code = [place] 1538) [address] POCT-GLUCOSE [id number] 18:55:00 Test Item Value Reference Range Interpretation Comments POC-GLUCOSE METER 344 mg/dL 70-110 H TESTED AT [place] [address] ([facility]) (test code = PAUL Tanner [facility] 1538) [address] POCT-GLUCOSE [id number] 12:20:00 Test Item Value Reference Range Interpretation Comments POC-GLUCOSE METER 166 mg/dL 70-110 H TESTED AT [place] [address] ([facility]) (test code = PAUL Tanner [facility] 1538) [address] POCT-GLUCOSE [id number] 11:34:00 Test Item Value Reference Range Interpretation Comments POC-GLUCOSE METER 68 mg/dL 70-110 L Notified R Collin STAPLETON/TESTED AT ([facility]) (test code = [address] 1538) [facility] [address] BUN AND [id number] 10:24:00 Test Item Value Reference Range Interpretation Comments BLOOD UREA NITROGEN 15 mg/dL 7-21 ([facility]) (test code = 354) CREATININE ([facility]) 0.64 mg/dL 0.57-1.25 (test code = 358) EGFR ([facility]) (test 137 mL/min/1.73 ESTIM ATED GFR IS code = 1092) sq m NOT ACCURATE CREATININE CLEARANCE IN PREDICTING GLOMERULAR FILTRATION RATE . ESTIMATED GFR I S NOT APPLICABLE FOR DIALYSIS PATIEN TS. POCT-GLUCOSE [id number] 07:58:00 Test Item Value Reference Range Interpretation Comments POC-GLUCOSE METER 218 mg/dL 70-110 H TESTED AT [place] [address] ([facility]) (test code = PAUL Tanner [facility] 1538) [address] POCT-GLUCOSE [id number] 22:10:00 Test Item Value Reference Range Interpretation Comments POC-GLUCOSE METER 140 mg/dL 70-110 H TESTED AT [place] [address] ([facility]) (test code = PAUL Tanner [facility] 1538) [address] POCT-GLUCOSE [id number] 20:51:00 Test Item Value Reference Range Interpretation Comments POC-GLUCOSE METER 182 mg/dL 70-110 H TESTED AT [place] [address] ([facility]) (test code = PAUL Tanner [facility] 1538) [address] POCT-GLUCOSE [id number] 12:49:00 Test Item Value Reference Range Interpretation Comments POC-GLUCOSE METER 81 mg/dL 70-[address] [facility] 6720 (BEAKER) (test code = [place] [address] 1538) POCT-GLUCOSE [id number] 08:20:00 Test Item Value Reference Range Interpretation Comments POC-GLUCOSE METER 362 mg/dL 70-110 H Notified R Collin or (AKER) (test code = Patien t refused repeat 1538) test/TESTED AT [facility] [address] [facility] [facility] [place] [address] BUN AND [id number] 06:16:00 Test Item Value Reference Range Interpretation Comments BLOOD UREA NITROGEN 16 mg/dL 7-21 (BEAKER) (test code = 354) CREATININE (BEAKER) 0.76 mg/dL 0.57-1.25 (test code = 358) EGFR (BEAKER) (test 112 mL/min/1.73 ESTIM ATED GFR IS code = 1092) sq m NOT ACCURATE CREATININE CLEARANCE IN PREDICTING GLOMERULAR FILTRATION RATE . ESTIMATED GFR I S NOT APPLICABLE FOR DIALYSIS PATIEN TS. CBC W/PLT COUNT & AUTO [id number] 06:13:00 Test Item Value Reference Range Interpretation Comments WHITE BLOOD CELL COUNT (BEAKER) 11.6 K/ L 3.5-10.5 H (test code = 775) RED BLOOD CELL COUNT (BEAKER) 3.59 M/ L 3.93-5.22 L (test code = 761) HEMOGLOBIN (BEAKER) (test code = 9.5 GM/DL 11.2-15.7 L 410) HEMATOCRIT (BEAKER) (test code = 32.5 % 34.1-44.9 L 411) MEAN CORPUSCULAR VOLUME (BEAKER) 90.5 fL 79.4-94.8 (test code = 753) MEAN CORPUSCULAR HEMOGLOBIN 26.5 pg 25.6-32.2 (BEAKER) (test code = 751) MEAN CORPUSCULAR HEMOGLOBIN CONC 29.2 GM/DL 32.2-35.5 L (BEAKER) (test code = 752) RED CELL DISTRIBUTION WIDTH 19.6 % 11.7-14.4 H (BEAKER) (test code = 412) PLATELET COUNT (BEAKER) (test 500 K/CU MM 150-450 H code = 756) MEAN PLATELET VOLUME (BEAKER) 10.0 fL 9.4-12.3 (test code = 754) NUCLEATED RED BLOOD CELLS 0 /100 WBC 0-0 (BEAKER) (test code = 413) NEUTROPHILS RELATIVE PERCENT 66 % (BEAKER) (test code = 429) LYMPHOCYTES RELATIVE PERCENT 21 % (BEAKER) (test code = 430) MONOCYTES RELATIVE PERCENT 8 % (BEAKER) (test code = 431) EOSINOPHILS RELATIVE PERCENT 6 % (BEAKER) (test code = 432) BASOPHILS RELATIVE PERCENT 0 % (BEAKER) (test code = 437) NEUTROPHILS ABSOLUTE COUNT 7.67 K/ L 1.56-6.13 H (BEAKER) (test code = 670) LYMPHOCYTES ABSOLUTE COUNT 2.39 K/ L 1.18-3.74 (BEAKER) (test code = 414) MONOCYTES ABSOLUTE COUNT (BEAKER) 0.87 K/ L 0.24-0.36 H (test code = 415) EOSINOPHILS ABSOLUTE COUNT 0.65 K/ L 0.04-0.36 H (BEAKER) (test code = 416) BASOPHILS ABSOLUTE COUNT (BEAKER) 0.02 K/ L 0.01-0.08 (test code = 417) IMMATURE GRANULOCYTES-RELATIVE 0 % 0-1 PERCENT (BEAKER) (test code = 2801) POCT-GLUCOSE [id number] 21:45:00 Test Item Value Reference Range Interpretation Comments POC-GLUCOSE METER 226 mg/dL 70-110 H TESTED AT [place] [address] ([facility]) (test code = PAUL Tanner [facility] 1538) [id number] POCT-GLUCOSE [id number] 17:21:00 Test Item Value Reference Range Interpretation Comments POC-GLUCOSE METER 245 mg/dL 70-110 H TESTED AT [place] [address] ([facility]) (test code = PAUL Tanner [facility] 1538) [id number] POCT-GLUCOSE [id number] 12:59:00 Test Item Value Reference Range Interpretation Comments POC-GLUCOSE METER 76 mg/dL 70-110 TESTED AT [place] [address] ([facility]) (test code = PAUL Tanner [facility] [id number] 1538) POCT-GLUCOSE [id number] 08:21:00 Test Item Value Reference Range Interpretation Comments POC-GLUCOSE METER 88 mg/dL 70-110 TESTED AT [place] [address] (BEAKER) (test code = PAUL Tanner [facility] [id number] 1538) BUN AND [id number] 05:56:00 Test Item Value Reference Range Interpretation Comments BLOOD UREA NITROGEN 9 mg/dL 7-21 (BEAKER) (test code = 354) CREATININE (BEAKER) 0.74 mg/dL 0.57-1.25 (test code = 358) EGFR (BEAKER) (test 116 mL/min/1.73 ESTIM ATED GFR IS code = 1092) sq m NOT ACCURATE CREATININE CLEARANCE IN PREDICTING GLOMERULAR FILTRATION RATE . ESTIMATED GFR I S NOT APPLICABLE FOR DIALYSIS PATIEN TS. CBC W/PLT COUNT & AUTO [id number] 05:30:00 Test Item Value Reference Range Interpretation Comments WHITE BLOOD CELL COUNT (BEAKER) 14.2 K/ L 3.5-10.5 H (test code = 775) RED BLOOD CELL COUNT (BEAKER) 3.82 M/ L 3.93-5.22 L (test code = 761) HEMOGLOBIN (BEAKER) (test code = 10.2 GM/DL 11.2-15.7 L 410) HEMATOCRIT (BEAKER) (test code = 34.0 % 34.1-44.9 L 411) MEAN CORPUSCULAR VOLUME (BEAKER) 89.0 fL 79.4-94.8 (test code = 753) MEAN CORPUSCULAR HEMOGLOBIN 26.7 pg 25.6-32.2 (BEAKER) (test code = 751) MEAN CORPUSCULAR HEMOGLOBIN CONC 30.0 GM/DL 32.2-35.5 L (BEAKER) (test code = 752) RED CELL DISTRIBUTION WIDTH 19.7 % 11.7-14.4 H (BEAKER) (test code = 412) PLATELET COUNT (BEAKER) (test 546 K/CU MM 150-450 H code = 756) MEAN PLATELET VOLUME (BEAKER) 9.9 fL 9.4-12.3 (test code = 754) NUCLEATED RED BLOOD CELLS 0 /100 WBC 0-0 (BEAKER) (test code = 413) NEUTROPHILS RELATIVE PERCENT 68 % (BEAKER) (test code = 429) LYMPHOCYTES RELATIVE PERCENT 19 % (BEAKER) (test code = 430) MONOCYTES RELATIVE PERCENT 7 % (BEAKER) (test code = 431) EOSINOPHILS RELATIVE PERCENT 5 % (BEAKER) (test code = 432) BASOPHILS RELATIVE PERCENT 0 % ([facility]) (test code = 437) NEUTROPHILS ABSOLUTE COUNT 9.65 K/ L 1.56-6.13 H (AKER) (test code = 670) LYMPHOCYTES ABSOLUTE COUNT 2.69 K/ L 1.18-3.74 (AKER) (test code = 414) MONOCYTES ABSOLUTE COUNT (BEAKER) 1.01 K/ L 0.24-0.36 H (test code = 415) EOSINOPHILS ABSOLUTE COUNT 0.72 K/ L 0.04-0.36 H (BEAKER) (test code = 416) BASOPHILS ABSOLUTE COUNT (BEAKER) 0.06 K/ L 0.01-0.08 (test code = 417) IMMATURE GRANULOCYTES-RELATIVE 1 % 0-1 PERCENT ([facility]) (test code = 2801) POCT-GLUCOSE [id number] 21:20:00 Test Item Value Reference Range Interpretation Comments POC-GLUCOSE METER 211 mg/dL 70-110 H TESTED AT [place] [address] ([facility]) (test code = [facility] 1538) [address] POCT-GLUCOSE [id number] 17:25:00 Test Item Value Reference Range Interpretation Comments POC-GLUCOSE METER 152 mg/dL 70-110 H TESTED AT [place] [address] ([facility]) (test code = [facility] 1538) [address] POCT-GLUCOSE [id number] 13:32:00 Test Item Value Reference Range Interpretation Comments POC-GLUCOSE METER 81 mg/dL 70-110 TESTED AT [place] [address] ([facility]) (test code = [facility] [address] 1538) BUN AND [id number] 10:16:00 Test Item Value Reference Range Interpretation Comments BLOOD UREA NITROGEN 17 mg/dL 7-21 ([facility]) (test code = 354) CREATININE ([facility]) 0.72 mg/dL 0.57-1.25 (test code = 358) EGFR ([facility]) (test 120 mL/min/1.73 ESTIM ATED GFR IS code = 1092) sq m NOT ACCURATE CREATININE CLEARANCE IN PREDICTING GLOMERULAR FILTRATION RATE . ESTIMATED GFR I S NOT APPLICABLE FOR DIALYSIS PATIEN TS. CBC W/PLT COUNT & AUTO [id number] 09:23:00 Test Item Value Reference Range Interpretation Comments WHITE BLOOD CELL COUNT (BEAKER) 11.7 K/ L 3.5-10.5 H (test code = 775) RED BLOOD CELL COUNT (BEAKER) 3.70 M/ L 3.93-5.22 L (test code = 761) HEMOGLOBIN (BEAKER) (test code = 9.7 GM/DL 11.2-15.7 L 410) HEMATOCRIT (BEAKER) (test code = 32.7 % 34.1-44.9 L 411) MEAN CORPUSCULAR VOLUME (BEAKER) 88.4 fL 79.4-94.8 (test code = 753) MEAN CORPUSCULAR HEMOGLOBIN 26.2 pg 25.6-32.2 (BEAKER) (test code = 751) MEAN CORPUSCULAR HEMOGLOBIN CONC 29.7 GM/DL 32.2-35.5 L (BEAKER) (test code = 752) RED CELL DISTRIBUTION WIDTH 19.5 % 11.7-14.4 H (BEAKER) (test code = 412) PLATELET COUNT (BEAKER) (test 519 K/CU MM 150-450 H code = 756) MEAN PLATELET VOLUME (BEAKER) 9.9 fL 9.4-12.3 (test code = 754) NUCLEATED RED BLOOD CELLS 0 /100 WBC 0-0 (BEAKER) (test code = 413) NEUTROPHILS RELATIVE PERCENT 60 % (BEAKER) (test code = 429) LYMPHOCYTES RELATIVE PERCENT 26 % (BEAKER) (test code = 430) MONOCYTES RELATIVE PERCENT 7 % (BEAKER) (test code = 431) EOSINOPHILS RELATIVE PERCENT 6 % (BEAKER) (test code = 432) BASOPHILS RELATIVE PERCENT 0 % (BEAKER) (test code = 437) NEUTROPHILS ABSOLUTE COUNT 6.97 K/ L 1.56-6.13 H (BEAKER) (test code = 670) LYMPHOCYTES ABSOLUTE COUNT 3.03 K/ L 1.18-3.74 (BEAKER) (test code = 414) MONOCYTES ABSOLUTE COUNT (BEAKER) 0.86 K/ L 0.24-0.36 H (test code = 415) EOSINOPHILS ABSOLUTE COUNT 0.71 K/ L 0.04-0.36 H (BEAKER) (test code = 416) BASOPHILS ABSOLUTE COUNT (BEAKER) 0.04 K/ L 0.01-0.08 (test code = 417) IMMATURE GRANULOCYTES-RELATIVE 1 % 0-1 PERCENT (BEAKER) (test code = 2801) POCT-GLUCOSE [id number] 08:05:00 Test Item Value Reference Range Interpretation Comments POC-GLUCOSE METER 245 mg/dL 70-110 H TESTED AT [place] [address] ([facility]) (test code = [facility] Ciro [facility] 1538) [address] POCT-GLUCOSE [id number] 21:42:00 Test Item Value Reference Range Interpretation Comments POC-GLUCOSE METER 163 mg/dL 70-110 H TESTED AT [place] [address] ([facility]) (test code = [facility] 1538) [address] POCT-GLUCOSE [id number] 18:57:00 Test Item Value Reference Range Interpretation Comments POC-GLUCOSE METER 65 mg/dL 70-110 L Will Repea t Test/TESTED (BEAKER) (test code = AT [address] 1538) [facility] [address] POCT-GLUCOSE [id number] 14:12:00 Test Item Value Reference Range Interpretation Comments POC-GLUCOSE METER 72 mg/dL 70-110 TESTED AT [place] [address] ([facility]) (test code = [facility] [address] 1538) POCT-GLUCOSE [id number] 10:46:00 Test Item Value Reference Range Interpretation Comments POC-GLUCOSE METER 361 mg/dL 70-110 H Will Repea t Test/TESTED (BEAKER) (test code = AT [place] [address]) [facility] 7[address] 0 BASIC METABOLIC [id number] 10:11:00 Test Item Value Reference Range Interpretation Comments SODIUM (BEAKER) 138 meq/L 136-145 (test code = 381) POTASSIUM (BEAKER) 5.1 meq/L 3.5-5.1 (test code = 379) CHLORIDE (BEAKER) 107 meq/L 98-107 (test code = 382) CO2 (BEAKER) (test 24 meq/L 22-29 code = 355) BLOOD UREA NITROGEN 9 mg/dL 7-21 (BEAKER) (test code = 354) CREATININE (BEAKER) 0.63 mg/dL 0.57-1.25 (test code = 358) GLUCOSE RANDOM 107 mg/dL 70-105 H (BEAKER) (test code = 652) CALCIUM (BEAKER) 7.4 mg/dL 8.4-10.2 L (test code = 697) EGFR (BEAKER) (test 140 mL/min/1.73 ESTIM ATED GFR IS code = 1092) sq m NOT ACCURATE CREATININE CLEARANCE IN PREDICTING GLOMERULAR FILTRATION RATE . ESTIMATED GFR I S NOT APPLICABLE FOR DIALYSIS PATIEN TS. CBC W/PLT COUNT & AUTO [id number] 09:22:00 Test Item Value Reference Range Interpretation Comments WHITE BLOOD CELL COUNT (BEAKER) 14.8 K/ L 3.5-10.5 H (test code = 775) RED BLOOD CELL COUNT (BEAKER) 3.65 M/ L 3.93-5.22 L (test code = 761) HEMOGLOBIN (BEAKER) (test code = 9.9 GM/DL 11.2-15.7 L 410) HEMATOCRIT (BEAKER) (test code = 32.5 % 34.1-44.9 L 411) MEAN CORPUSCULAR VOLUME (BEAKER) 89.0 fL 79.4-94.8 (test code = 753) MEAN CORPUSCULAR HEMOGLOBIN 27.1 pg 25.6-32.2 (BEAKER) (test code = 751) MEAN CORPUSCULAR HEMOGLOBIN CONC 30.5 GM/DL 32.2-35.5 L (BEAKER) (test code = 752) RED CELL DISTRIBUTION WIDTH 19.4 % 11.7-14.4 H (BEAKER) (test code = 412) PLATELET COUNT (BEAKER) (test 490 K/CU MM 150-450 H code = 756) MEAN PLATELET VOLUME (BEAKER) 9.6 fL 9.4-12.3 (test code = 754) NUCLEATED RED BLOOD CELLS 0 /100 WBC 0-0 (BEAKER) (test code = 413) NEUTROPHILS RELATIVE PERCENT 64 % (BEAKER) (test code = 429) LYMPHOCYTES RELATIVE PERCENT 24 % (BEAKER) (test code = 430) MONOCYTES RELATIVE PERCENT 7 % (BEAKER) (test code = 431) EOSINOPHILS RELATIVE PERCENT 5 % (BEAKER) (test code = 432) BASOPHILS RELATIVE PERCENT 0 % (BEAKER) (test code = 437) NEUTROPHILS ABSOLUTE COUNT 9.41 K/ L 1.56-6.13 H (BEAKER) (test code = 670) LYMPHOCYTES ABSOLUTE COUNT 3.48 K/ L 1.18-3.74 (BEAKER) (test code = 414) MONOCYTES ABSOLUTE COUNT (AKER) 1.04 K/ L 0.24-0.36 H (test code = 415) EOSINOPHILS ABSOLUTE COUNT 0.70 K/ L 0.04-0.36 H ([facility]) (test code = 416) BASOPHILS ABSOLUTE COUNT ([facility]) 0.03 K/ L 0.01-0.08 (test code = 417) IMMATURE GRANULOCYTES-RELATIVE 1 % 0-1 PERCENT ([facility]) (test code = 2801) POCT-GLUCOSE [id number] 22:41:00 Test Item Value Reference Range Interpretation Comments POC-GLUCOSE METER 118 mg/dL 70-110 H TESTED AT [place] [address] ([facility]) (test code = PAUL Tanner [facility] 1538) [address] [id number] 17:38:00 Test Item Value Reference Range Interpretation Comments POTASSIUM ([facility]) (test code = 5.4 meq/L 3.5-5.1 H 379) POCT-GLUCOSE [id number] 17:31:00 Test Item Value Reference Range Interpretation Comments POC-GLUCOSE METER 111 mg/dL 70-110 H TESTED AT [place] [address] ([facility]) (test code = PAUL Tanner [facility] 1538) [address] POCT-GLUCOSE [id number] 12:16:00 Test Item Value Reference Range Interpretation Comments POC-GLUCOSE METER 186 mg/dL 70-110 H TESTED AT [place] [address] ([facility]) (test code = NAOMITAYO Tanner [facility] 1538) [address] POCT-GLUCOSE [id number] 09:29:00 Test Item Value Reference Range Interpretation Comments POC-GLUCOSE METER 159 mg/dL 70-110 H TESTED AT [place] [address] ([facility]) (test code = NAOMITAYO Tanner [facility] 1538) [address] POCT-GLUCOSE [id number] 08:59:00 Test Item Value Reference Range Interpretation Comments POC-GLUCOSE METER 29 mg/dL 70-110 LL Will Repea t Test/TESTED ([facility]) (test code = AT [place] [address] [place] [id number]) [place] [address] POCT-GLUCOSE [id number] 06:52:00 Test Item Value Reference Range Interpretation Comments POC-GLUCOSE METER 492 mg/dL 70-110 HH Notified R Collin [place]/TESTED (BEAKER) (test code = AT [facility] [address] [facility] 7743) [facility] 7[address] 0 COMPREHENSIVE METABOLIC [id number] 06:27:00 Test Item Value Reference Range Interpretation Comments TOTAL PROTEIN 6.4 gm/dL 6.0-8.3 (BEAKER) (test code = 770) ALBUMIN (BEAKER) 2.8 g/dL 3.5-5.0 L (test code = 1145) ALKALINE PHOSPHATASE 139 U/L 40-150 (BEAKER) (test code = 346) BILIRUBIN TOTAL 0.1 mg/dL 0.2-1.2 L (BEAKER) (test code = 377) SODIUM (BEAKER) (test 134 meq/L 136-145 L code = 381) POTASSIUM (BEAKER) 5.3 meq/L 3.5-5.1 H (test code = 379) CHLORIDE (BEAKER) 96 meq/L 98-107 L (test code = 382) CO2 (BEAKER) (test 29 meq/L 22-29 code = 355) BLOOD UREA NITROGEN 14 mg/dL 7-21 (BEAKER) (test code = 354) CREATININE (BEAKER) 0.79 mg/dL 0.57-1.25 (test code = 358) GLUCOSE RANDOM 435 mg/dL 70-105 HH (BEAKER) (test code = 652) CALCIUM (BEAKER) 8.4 mg/dL 8.4-10.2 (test code = 697) AST (SGOT) (BEAKER) 54 U/L 5-34 H (test code = 353) ALT (SGPT) (BEAKER) 75 U/L 6-55 H (test code = 347) EGFR (BEAKER) (test 107 ESTIMATE D GFR IS code = 1092) mL/min/1.73 sq NOT ACCURA TE m CREATININE CLEARANCE IN PREDICTING GLOMERULAR FILTRATION RATE . ESTIMATED GFR I S NOT APPLICABLE FOR DIALYSIS PATIEN TS. CBC (HEMOGRAM ONLY)2018-02-28 05:50:00 Test Item Value Reference Range Interpretation Comments WHITE BLOOD CELL COUNT (BEAKER) 16.3 K/ L 3.5-10.5 H (test code = 775) RED BLOOD CELL COUNT (BEAKER) 3.49 M/ L 3.93-5.22 L (test code = 761) HEMOGLOBIN (BEAKER) (test code = 9.2 GM/DL 11.2-15.7 L 410) HEMATOCRIT (BEAKER) (test code = 31.2 % 34.1-44.9 L 411) MEAN CORPUSCULAR VOLUME (BEAKER) 89.4 fL 79.4-94.8 (test code = 753) MEAN CORPUSCULAR HEMOGLOBIN 26.4 pg 25.6-32.2 (BEAKER) (test code = 751) MEAN CORPUSCULAR HEMOGLOBIN CONC 29.5 GM/DL 32.2-35.5 L (BEAKER) (test code = 752) RED CELL DISTRIBUTION WIDTH 18.7 % 11.7-14.4 H (BEAKER) (test code = 412) PLATELET COUNT (AKER) (test 473 K/CU MM 150-450 H code = 756) MEAN PLATELET VOLUME (BEAKER) 9.6 fL 9.4-12.3 (test code = 754) NUCLEATED RED BLOOD CELLS 0 /100 WBC 0-0 (AKER) (test code = 413) POCT-GLUCOSE [id number] 17:54:00 Test Item Value Reference Range Interpretation Comments POC-GLUCOSE METER 386 mg/dL 70-110 H Notified R Collin or ([facility]) (test code = Patidhaval t refused repeat 1538) test/[address] [facility] [address] POCT-GLUCOSE [id number] 12:41:00 Test Item Value Reference Range Interpretation Comments POC-GLUCOSE METER 104 mg/dL 70-110 TESTED AT [place] [address] ([facility]) (test code = PAUL Tanner [facility] 1538) [address] POCT-GLUCOSE [id number] 07:57:00 Test Item Value Reference Range Interpretation Comments POC-GLUCOSE METER 140 mg/dL 70-110 H TESTED AT [place] [address] ([facility]) (test code = PAUL Tanner [facility] 1538) [address] BASIC METABOLIC [id number] 05:36:00 Test Item Value Reference Range Interpretation Comments SODIUM (BEAKER) 138 meq/L 136-145 (test code = 381) POTASSIUM (BEAKER) 4.7 meq/L 3.5-5.1 (test code = 379) CHLORIDE (BEAKER) 97 meq/L 98-107 L (test code = 382) CO2 (BEAKER) (test 33 meq/L 22-29 H code = 355) BLOOD UREA NITROGEN 15 mg/dL 7-21 (BEAKER) (test code = 354) CREATININE (BEAKER) 0.64 mg/dL 0.57-1.25 (test code = 358) GLUCOSE RANDOM 135 mg/dL 70-105 H (BEAKER) (test code = 652) CALCIUM (BEAKER) 8.6 mg/dL 8.4-10.2 (test code = 697) EGFR (BEAKER) (test 137 mL/min/1.73 ESTIM ATED GFR IS code = 1092) sq m NOT ACCURATE CREATININE CLEARANCE IN PREDICTING GLOMERULAR FILTRATION RATE . ESTIMATED GFR I S NOT APPLICABLE FOR DIALYSIS PATIEN TS. CBC (HEMOGRAM ONLY)2018-02-27 05:15:00 Test Item Value Reference Range Interpretation Comments WHITE BLOOD CELL COUNT (BEAKER) 13.8 K/ L 3.5-10.5 H (test code = 775) RED BLOOD CELL COUNT (BEAKER) 3.46 M/ L 3.93-5.22 L (test code = 761) HEMOGLOBIN (BEAKER) (test code = 9.0 GM/DL 11.2-15.7 L 410) HEMATOCRIT (BEAKER) (test code = 30.3 % 34.1-44.9 L 411) MEAN CORPUSCULAR VOLUME (BEAKER) 87.6 fL 79.4-94.8 (test code = 753) MEAN CORPUSCULAR HEMOGLOBIN 26.0 pg 25.6-32.2 (BEAKER) (test code = 751) MEAN CORPUSCULAR HEMOGLOBIN CONC 29.7 GM/DL 32.2-35.5 L (BEAKER) (test code = 752) RED CELL DISTRIBUTION WIDTH 18.4 % 11.7-14.4 H (BEAKER) (test code = 412) PLATELET COUNT (BEAKER) (test 473 K/CU MM 150-450 H code = 756) MEAN PLATELET VOLUME (BEAKER) 9.6 fL 9.4-12.3 (test code = 754) NUCLEATED RED BLOOD CELLS 0 /100 WBC 0-0 (BEAKER) (test code = 413) POCT-GLUCOSE [id number] 21:46:00 Test Item Value Reference Range Interpretation Comments POC-GLUCOSE METER 117 mg/dL 70-110 H TESTED AT [place] [address] (BEAKER) (test code = PAUL Tanner [facility] 1538) [address] POCT-GLUCOSE [id number] 17:44:00 Test Item Value Reference Range Interpretation Comments POC-GLUCOSE METER 142 mg/dL 70-110 H TESTED AT [place] [address] ([facility]) (test code = PAUL Tanner [facility] 1538) [address] POCT-GLUCOSE [id number] 12:49:00 Test Item Value Reference Range Interpretation Comments POC-GLUCOSE METER 420 mg/dL 70-110 HH TESTED AT [place] [address] ([facility]) (test code = PAUL Tanner [facility] 1538) [address] POCT-GLUCOSE [id number] 08:52:00 Test Item Value Reference Range Interpretation Comments POC-GLUCOSE METER 381 mg/dL 70-110 H TESTED AT [place] [address] ([facility]) (test code = PAUL Tanner [facility] 1538) [address] BASIC METABOLIC [id number] 05:59:00 Test Item Value Reference Range Interpretation Comments SODIUM (BEAKER) 141 meq/L 136-145 (test code = 381) POTASSIUM (BEAKER) 4.0 meq/L 3.5-5.1 (test code = 379) CHLORIDE (BEAKER) 103 meq/L 98-107 (test code = 382) CO2 (BEAKER) (test 26 meq/L 22-29 code = 355) BLOOD UREA NITROGEN 14 mg/dL 7-21 (BEAKER) (test code = 354) CREATININE (BEAKER) 0.68 mg/dL 0.57-1.25 (test code = 358) GLUCOSE RANDOM 181 mg/dL 70-105 H (BEAKER) (test code = 652) CALCIUM (BEAKER) 8.3 mg/dL 8.4-10.2 L (test code = 697) EGFR (BEAKER) (test 128 mL/min/1.73 ESTIM ATED GFR IS code = 1092) sq m NOT ACCURATE CREATININE CLEARANCE IN PREDICTING GLOMERULAR FILTRATION RATE . ESTIMATED GFR I S NOT APPLICABLE FOR DIALYSIS PATIEN TS. CBC (HEMOGRAM ONLY)2018-02-26 05:02:00 Test Item Value Reference Range Interpretation Comments WHITE BLOOD CELL COUNT (BEAKER) 13.4 K/ L 3.5-10.5 H (test code = 775) RED BLOOD CELL COUNT (BEAKER) 3.36 M/ L 3.93-5.22 L (test code = 761) HEMOGLOBIN (BEAKER) (test code = 9.0 GM/DL 11.2-15.7 L 410) HEMATOCRIT (BEAKER) (test code = 29.6 % 34.1-44.9 L 411) MEAN CORPUSCULAR VOLUME (BEAKER) 88.1 fL 79.4-94.8 (test code = 753) MEAN CORPUSCULAR HEMOGLOBIN 26.8 pg 25.6-32.2 (BEAKER) (test code = 751) MEAN CORPUSCULAR HEMOGLOBIN CONC 30.4 GM/DL 32.2-35.5 L (BEAKER) (test code = 752) RED CELL DISTRIBUTION WIDTH 17.9 % 11.7-14.4 H (BEAKER) (test code = 412) PLATELET COUNT (AKER) (test 423 K/CU MM 150-450 code = 756) MEAN PLATELET VOLUME (BEAKER) 9.9 fL 9.4-12.3 (test code = 754) NUCLEATED RED BLOOD CELLS 0 /100 WBC 0-0 (AKER) (test code = 413) POCT-GLUCOSE [id number] 23:16:00 Test Item Value Reference Range Interpretation Comments POC-GLUCOSE METER 146 mg/dL 70-110 H TESTED AT [place] [address] ([facility]) (test code = [facility] 1538) [address] POCT-GLUCOSE [id number] 19:07:00 Test Item Value Reference Range Interpretation Comments POC-GLUCOSE METER 268 mg/dL 70-110 H TESTED AT [place] [address] ([facility]) (test code = [facility] 1538) [address] POCT-GLUCOSE [id number] 15:33:00 Test Item Value Reference Range Interpretation Comments POC-GLUCOSE METER 288 mg/dL 70-110 H TESTED AT [place] [address] ([facility]) (test code = [facility] 1538) [address] POCT-GLUCOSE [id number] 15:17:00 Test Item Value Reference Range Interpretation Comments POC-GLUCOSE METER 79 mg/dL 70-110 TESTED AT [place] [address] ([facility]) (test code = [facility] [address] 1538) POCT-GLUCOSE [id number] 12:53:00 Test Item Value Reference Range Interpretation Comments POC-GLUCOSE METER 48 mg/dL 70-110 L Patient on insulin (SIMI) (test code = Drip/T ESTED AT [facility] 1538) [address] [place] [address] RAD, ABDOMEN/KUB, 1 VIEW [id number] 08:30:00Reason for exam:->Monitor constipationFINAL REPORT Chest one view compared to February 23, 2018 Discussion: There is moderate retained feces overall similar in appearance. No evidence of bowel distention. No evidence of free intraperitoneal air. No concerning calcification. Signed: Flip Choe Verified Date/Time: 02/25/2018 08:30:00 Reading Location: [facility] Radiology Reading Room POCT-GLUCOSE [id number] 08:15:00 Test Item Value Reference Range Interpretation Comments POC-GLUCOSE METER 83 mg/dL 70-[address] [facility] 6720 ([facility]) (test code = PAUL Tanner [facility] [address] 1538) CF RESPIRATORY [id number] 00:03:00 Test Item Value Reference Range Interpretation Comments CULTURE ([facility]) PSEUDOMONAS A 3+ Pseudomo viki (test code = 1095) AERUGINOSA aeruginos a (MUCOID-PHENOTYPE (Mucoid-ph enotype ) ) Amikacin (test code Susceptible 0-16 S = 1) , Resistant <0 or >16 Aztreonam (test Susceptible 0-8 , S code = 32) Resistant <0 or >8 Cefepime (test code Susceptible 0-8 , S = 51) Resistant <0 or >8 Ceftazidime (test Susceptible 0-8 , S code = 27) Resistant <0 or >8 Ciprofloxacin (test Susceptible 0-1 , S code = 7) Resistant <0 or >1 Doripenem (test Susceptible 0-2 , S code = 100) Resistant <0 or >2 Gentamicin (test Susceptible 0-4 , S code = 18) Resistant <0 or >4 Imipenem (test code Susceptible 0-2 , R = 19) Resistant <0 or >2 Levofloxacin (test Susceptible 0-2 , S code = 22) Resistant <0 or >2 Meropenem (test Susceptible 0-2 , S code = 34) Resistant <0 or >2 Piperacillin (test Susceptible 0-16 S code = 24) , Resistant <0 or >16 Piperacillin + Susceptible 0-16 S Tazobactam (test , Resistant <0 or code = 29) >16 Tobramycin (test Susceptible 0-4 , S code = 25) Resistant <0 or >4 CULTURE (BEAKER) PSEUDOMONAS A 3+ Pseudomo viki (test code = 1095) AERUGINOSA aeruginos a (MUCOID-PHENOTYPE (Mucoid-ph enotype ) )of a second ty pe Amikacin (test code Susceptible 0-16 S = 1) , Resistant <0 or >16 Aztreonam (test Susceptible 0-8 , R code = 32) Resistant <0 or >8 Cefepime (test code Susceptible 0-8 , S = 51) Resistant <0 or >8 Ceftazidime (test Susceptible 0-8 , R code = 27) Resistant <0 or >8 Ciprofloxacin (test Susceptible 0-1 , R code = 7) Resistant <0 or >1 Doripenem (test Susceptible 0-2 , S code = 100) Resistant <0 or >2 Gentamicin (test Susceptible 0-4 , S code = 18) Resistant <0 or >4 Imipenem (test code Susceptible 0-2 , R = 19) Resistant <0 or >2 Levofloxacin (test Susceptible 0-2 , R code = 22) Resistant <0 or >2 Meropenem (test Susceptible 0-2 , S code = 34) Resistant <0 or >2 Piperacillin (test Susceptible 0-16 S code = 24) , Resistant <0 or >16 Piperacillin + Susceptible 0-16 S Tazobactam (test , Resistant <0 or code = 29) >16 Tobramycin (test Susceptible 0-4 , S code = 25) Resistant <0 or >4 CULTURE (BEAKER) PSEUDOMONAS A 2+ Pseudomo viki (test code = 1095) AERUGINOSA aeruginos aof a third type Amikacin (test code Susceptible 0-16 S = 1) , Resistant <0 or >16 Aztreonam (test Susceptible 0-8 , S code = 32) Resistant <0 or >8 Cefepime (test code Susceptible 0-8 , S = 51) Resistant <0 or >8 Ceftazidime (test Susceptible 0-8 , S code = 27) Resistant <0 or >8 Ciprofloxacin (test Susceptible 0-1 , R code = 7) Resistant <0 or >1 Doripenem (test Susceptible 0-2 , R code = 100) Resistant <0 or >2 Gentamicin (test Susceptible 0-4 , S code = 18) Resistant <0 or >4 Imipenem (test code Susceptible 0-2 , R = 19) Resistant <0 or >2 Levofloxacin (test Susceptible 0-2 , R code = 22) Resistant <0 or >2 Meropenem (test Susceptible 0-2 , S code = 34) Resistant <0 or >2 Piperacillin (test Susceptible 0-16 R code = 24) , Resistant <0 or >16 Piperacillin + Susceptible 0-16 R Tazobactam (test , Resistant <0 or code = 29) >16 Tobramycin (test Susceptible 0-4 , S code = 25) Resistant <0 or >4 3+ Normal respiratory derick presentPOCT-GLUCOSE [id number] 21:18:00 Test Item Value Reference Range Interpretation Comments POC-GLUCOSE METER 311 mg/dL 70-110 H TESTED AT [place] [address] ([facility]) (test code = PAUL Tanner [facility] 1538) [id number] POCT-GLUCOSE [id number] 17:13:00 Test Item Value Reference Range Interpretation Comments POC-GLUCOSE METER 319 mg/dL 70-110 H TESTED AT [place] [address] ([facility]) (test code = PAUL Tanner [facility] 1538) [id number] POCT-GLUCOSE [id number] 12:28:00 Test Item Value Reference Range Interpretation Comments POC-GLUCOSE METER 415 mg/dL 70-110 HH Notified R Collin [place]/TESTED ([facility]) (test code = AT [address] [address]) [facility] [id number] BLOOD [id number] 06:00:00 Test Item Value Reference Range Interpretation Comments CULTURE ([facility]) (test No growth in 5 days code = 1095) BLOOD [id number] 06:00:00 Test Item Value Reference Range Interpretation Comments CULTURE ([facility]) (test No growth in 5 days code = 1095) LACTIC ACID, VENOUS, WHOLE [id number] 05:46:00 Test Item Value Reference Range Interpretation Comments LACTATE BLOOD VENOUS (2) ([facility]) 1.0 mmol/L 0.5-2.2 (test code = 2872) Effective 02/26/2016: Units/Reference Range ChangeNew: 0.5-2.2 mmol/L Previous: 5-20 mg/dLBASIC METABOLIC [id number] 05:41:00 Test Item Value Reference Range Interpretation Comments SODIUM (BEAKER) 135 meq/L 136-145 L (test code = 381) POTASSIUM (BEAKER) 4.8 meq/L 3.5-5.1 (test code = 379) CHLORIDE (BEAKER) 100 meq/L 98-107 (test code = 382) CO2 (BEAKER) (test 28 meq/L 22-29 code = 355) BLOOD UREA NITROGEN 27 mg/dL 7-21 H (BEAKER) (test code = 354) CREATININE (BEAKER) 0.78 mg/dL 0.57-1.25 (test code = 358) GLUCOSE RANDOM 309 mg/dL 70-105 H (BEAKER) (test code = 652) CALCIUM (BEAKER) 8.8 mg/dL 8.4-10.2 (test code = 697) EGFR (BEAKER) (test 109 mL/min/1.73 ESTIM ATED GFR IS code = 1092) sq m NOT ACCURATE CREATININE CLEARANCE IN PREDICTING GLOMERULAR FILTRATION RATE . ESTIMATED GFR I S NOT APPLICABLE FOR DIALYSIS PATIEN TS. CBC W/PLT COUNT & AUTO [id number] 05:27:00 Test Item Value Reference Range Interpretation Comments WHITE BLOOD CELL COUNT (BEAKER) 19.9 K/ L 3.5-10.5 H (test code = 775) RED BLOOD CELL COUNT (BEAKER) 3.20 M/ L 3.93-5.22 L (test code = 761) HEMOGLOBIN (BEAKER) (test code = 8.3 GM/DL 11.2-15.7 L 410) HEMATOCRIT (BEAKER) (test code = 27.7 % 34.1-44.9 L 411) MEAN CORPUSCULAR VOLUME (BEAKER) 86.6 fL 79.4-94.8 (test code = 753) MEAN CORPUSCULAR HEMOGLOBIN 25.9 pg 25.6-32.2 (BEAKER) (test code = 751) MEAN CORPUSCULAR HEMOGLOBIN CONC 30.0 GM/DL 32.2-35.5 L (BEAKER) (test code = 752) RED CELL DISTRIBUTION WIDTH 16.7 % 11.7-14.4 H (BEAKER) (test code = 412) PLATELET COUNT (BEAKER) (test 320 K/CU MM 150-450 code = 756) MEAN PLATELET VOLUME (BEAKER) 10.8 fL 9.4-12.3 (test code = 754) NUCLEATED RED BLOOD CELLS 0 /100 WBC 0-0 (BEAKER) (test code = 413) NEUTROPHILS RELATIVE PERCENT 79 % (BEAKER) (test code = 429) LYMPHOCYTES RELATIVE PERCENT 13 % (BEAKER) (test code = 430) MONOCYTES RELATIVE PERCENT 5 % (BEAKER) (test code = 431) EOSINOPHILS RELATIVE PERCENT 1 % (BEAKER) (test code = 432) BASOPHILS RELATIVE PERCENT 0 % (BEAKER) (test code = 437) NEUTROPHILS ABSOLUTE COUNT 15.63 K/ L 1.56-6.13 H (BEAKER) (test code = 670) LYMPHOCYTES ABSOLUTE COUNT 2.50 K/ L 1.18-3.74 (BEAKER) (test code = 414) MONOCYTES ABSOLUTE COUNT (BEAKER) 1.03 K/ L 0.24-0.36 H (test code = 415) EOSINOPHILS ABSOLUTE COUNT 0.25 K/ L 0.04-0.36 (BEAKER) (test code = 416) BASOPHILS ABSOLUTE COUNT (BEAKER) 0.04 K/ L 0.01-0.08 (test code = 417) IMMATURE GRANULOCYTES-RELATIVE 2 % 0-1 H PERCENT (BEAKER) (test code = 2801) POCT-GLUCOSE [id number] 21:47:00 Test Item Value Reference Range Interpretation Comments POC-GLUCOSE METER 258 mg/dL 70-[address] [facility] 6720 ([facility]) (test code = PAUL Tanner [place] 1538) [address] POCT-GLUCOSE [id number] 17:44:00 Test Item Value Reference Range Interpretation Comments POC-GLUCOSE METER 151 mg/dL 70-[address] [facility] 6720 ([facility]) (test code = PAUL Tanner [place] 1538) [address] RAD, ABDOMEN/KUB, 1 VIEW [id number] 15:48:00Reason for exam:->eval for ileus vs obstructionFINAL REPORT Two abdomen images compared to February 20, 2018 Discussion: Moderate retained feces. No evidence of small bowel distention. No evidence of free intraperitoneal air. Regional bones are unremarkable. No concerning calcification. Signed: Flip Choe Verified Date/Time: 02/23/2018 15:48:56 Reading Location: [address] Consult Reading Room Electronicallysigned by: FLIP CHOE M.D. on 02/23/2018 03:48 PMPOCT-GLUCOSE [id number] 12:11:00 Test Item Value Reference Range Interpretation Comments POC-GLUCOSE METER 479 mg/dL 70-110 HH TESTED AT [place] [address] ([facility]) (test code = PAUL Tanner [facility] 1538) [address] POCT-GLUCOSE [id number] 08:30:00 Test Item Value Reference Range Interpretation Comments POC-GLUCOSE METER > mg/dL 70-110 HH OUTSIDE [place]ING ([facility]) (test code RANGENot ified JORDON STAPLETON/TESTED = 1538) AT [address] [address] BASIC METABOLIC [id number] 05:51:00 Test Item Value Reference Range Interpretation Comments SODIUM (BEAKER) 134 meq/L 136-145 L (test code = 381) POTASSIUM (BEAKER) 5.1 meq/L 3.5-5.1 (test code = 379) CHLORIDE (BEAKER) 98 meq/L 98-107 (test code = 382) CO2 (BEAKER) (test 28 meq/L 22-29 code = 355) BLOOD UREA NITROGEN 21 mg/dL 7-21 (BEAKER) (test code = 354) CREATININE (BEAKER) 0.72 mg/dL 0.57-1.25 (test code = 358) GLUCOSE RANDOM 398 mg/dL 70-105 H (BEAKER) (test code = 652) CALCIUM (BEAKER) 8.6 mg/dL 8.4-10.2 (test code = 697) EGFR (BEAKER) (test 120 mL/min/1.73 ESTIM ATED GFR IS code = 1092) sq m NOT ACCURATE CREATININE CLEARANCE IN PREDICTING GLOMERULAR FILTRATION RATE . ESTIMATED GFR I S NOT APPLICABLE FOR DIALYSIS PATIEN TS. CBC W/PLT COUNT & AUTO [id number] 05:39:00 Test Item Value Reference Range Interpretation Comments WHITE BLOOD CELL COUNT (BEAKER) 18.6 K/ L 3.5-10.5 H (test code = 775) RED BLOOD CELL COUNT (BEAKER) 3.25 M/ L 3.93-5.22 L (test code = 761) HEMOGLOBIN (BEAKER) (test code = 8.7 GM/DL 11.2-15.7 L 410) HEMATOCRIT (BEAKER) (test code = 28.2 % 34.1-44.9 L 411) MEAN CORPUSCULAR VOLUME (BEAKER) 86.8 fL 79.4-94.8 (test code = 753) MEAN CORPUSCULAR HEMOGLOBIN 26.8 pg 25.6-32.2 (BEAKER) (test code = 751) MEAN CORPUSCULAR HEMOGLOBIN CONC 30.9 GM/DL 32.2-35.5 L (BEAKER) (test code = 752) RED CELL DISTRIBUTION WIDTH 16.4 % 11.7-14.4 H (BEAKER) (test code = 412) PLATELET COUNT (BEAKER) (test 288 K/CU MM 150-450 code = 756) MEAN PLATELET VOLUME (BEAKER) 10.8 fL 9.4-12.3 (test code = 754) NUCLEATED RED BLOOD CELLS 0 /100 WBC 0-0 (BEAKER) (test code = 413) NEUTROPHILS RELATIVE PERCENT 89 % (BEAKER) (test code = 429) LYMPHOCYTES RELATIVE PERCENT 6 % (BEAKER) (test code = 430) MONOCYTES RELATIVE PERCENT 3 % (BEAKER) (test code = 431) EOSINOPHILS RELATIVE PERCENT 0 % (BEAKER) (test code = 432) BASOPHILS RELATIVE PERCENT 0 % (BEAKER) (test code = 437) NEUTROPHILS ABSOLUTE COUNT 16.59 K/ L 1.56-6.13 H (BEAKER) (test code = 670) LYMPHOCYTES ABSOLUTE COUNT 1.20 K/ L 1.18-3.74 (BEAKER) (test code = 414) MONOCYTES ABSOLUTE COUNT (BEAKER) 0.56 K/ L 0.24-0.36 H (test code = 415) EOSINOPHILS ABSOLUTE COUNT 0.02 K/ L 0.04-0.36 L (BEAKER) (test code = 416) BASOPHILS ABSOLUTE COUNT (BEAKER) 0.02 K/ L 0.01-0.08 (test code = 417) IMMATURE GRANULOCYTES-RELATIVE 1 % 0-1 PERCENT ([facility]) (test code = 2801) POCT-GLUCOSE [id number] 21:48:00 Test Item Value Reference Range Interpretation Comments POC-GLUCOSE METER 405 mg/dL 70-110 HH TESTED AT [place] [address] ([facility]) (test code = PAUL Tanner [place] [address]) [address] POCT-GLUCOSE [id number] 17:42:00 Test Item Value Reference Range Interpretation Comments POC-GLUCOSE METER 325 mg/dL 70-110 H Notified R N or MD ([facility]) (test code = Patien t refused repeat 1537) test/TESTED AT [address] [address] POCT-GLUCOSE [id number] 13:00:00 Test Item Value Reference Range Interpretation Comments POC-GLUCOSE METER 62 mg/dL 70-110 L Notified R N MD/TESTED AT ([facility]) (test code = [place] [address]) [facility] 7[address] 0 POCT-GLUCOSE [id number] 12:20:00 Test Item Value Reference Range Interpretation Comments POC-GLUCOSE METER 50 mg/dL 70-110 L Will Repea t Test/TESTED ([facility]) (test code = AT [place] [address]) [facility] 7703 0 POCT-GLUCOSE [id number] 12:20:00 Test Item Value Reference Range Interpretation Comments POC-GLUCOSE METER 37 mg/dL 70-110 LL Notified R N or MD ([facility]) (test code = Patien t refused repeat 1537) test/TESTED AT [address] [address] POCT-GLUCOSE [id number] 08:11:00 Test Item Value Reference Range Interpretation Comments POC-GLUCOSE METER 372 mg/dL 70-110 H TESTED AT [place] [address] ([facility]) (test code = [place] [address]) [address] BASIC METABOLIC [id number] 06:08:00 Test Item Value Reference Range Interpretation Comments SODIUM ([facility]) 135 meq/L 136-145 L (test code = 381) POTASSIUM ([facility]) 4.2 meq/L 3.5-5.1 (test code = 379) CHLORIDE (BEAKER) 102 meq/L 98-107 (test code = 382) CO2 (BEAKER) (test 26 meq/L 22-29 code = 355) BLOOD UREA NITROGEN 25 mg/dL 7-21 H (BEAKER) (test code = 354) CREATININE (BEAKER) 0.69 mg/dL 0.57-1.25 (test code = 358) GLUCOSE RANDOM 296 mg/dL 70-105 H (BEAKER) (test code = 652) CALCIUM (BEAKER) 8.2 mg/dL 8.4-10.2 L (test code = 697) EGFR (BEAKER) (test 126 mL/min/1.73 ESTIM ATED GFR IS code = 1092) sq m NOT ACCURATE CREATININE CLEARANCE IN PREDICTING GLOMERULAR FILTRATION RATE . ESTIMATED GFR I S NOT APPLICABLE FOR DIALYSIS PATIEN TS. CBC W/PLT COUNT & AUTO [id number] 05:42:00 Test Item Value Reference Range Interpretation Comments WHITE BLOOD CELL COUNT (BEAKER) 14.7 K/ L 3.5-10.5 H (test code = 775) RED BLOOD CELL COUNT (BEAKER) 3.39 M/ L 3.93-5.22 L (test code = 761) HEMOGLOBIN (BEAKER) (test code = 8.7 GM/DL 11.2-15.7 L 410) HEMATOCRIT (BEAKER) (test code = 29.5 % 34.1-44.9 L 411) MEAN CORPUSCULAR VOLUME (BEAKER) 87.0 fL 79.4-94.8 (test code = 753) MEAN CORPUSCULAR HEMOGLOBIN 25.7 pg 25.6-32.2 (BEAKER) (test code = 751) MEAN CORPUSCULAR HEMOGLOBIN CONC 29.5 GM/DL 32.2-35.5 L (BEAKER) (test code = 752) RED CELL DISTRIBUTION WIDTH 16.2 % 11.7-14.4 H (BEAKER) (test code = 412) PLATELET COUNT (BEAKER) (test 294 K/CU MM 150-450 code = 756) MEAN PLATELET VOLUME (BEAKER) 11.2 fL 9.4-12.3 (test code = 754) NUCLEATED RED BLOOD CELLS 0 /100 WBC 0-0 (BEAKER) (test code = 413) NEUTROPHILS RELATIVE PERCENT 72 % (BEAKER) (test code = 429) LYMPHOCYTES RELATIVE PERCENT 19 % (BEAKER) (test code = 430) MONOCYTES RELATIVE PERCENT 6 % (BEAKER) (test code = 431) EOSINOPHILS RELATIVE PERCENT 2 % (BEAKER) (test code = 432) BASOPHILS RELATIVE PERCENT 0 % (BEAKER) (test code = 437) NEUTROPHILS ABSOLUTE COUNT 10.58 K/ L 1.56-6.13 H (BEAKER) (test code = 670) LYMPHOCYTES ABSOLUTE COUNT 2.80 K/ L 1.18-3.74 (BEAKER) (test code = 414) MONOCYTES ABSOLUTE COUNT (BEAKER) 0.84 K/ L 0.24-0.36 H (test code = 415) EOSINOPHILS ABSOLUTE COUNT 0.34 K/ L 0.04-0.36 (BEAKER) (test code = 416) BASOPHILS ABSOLUTE COUNT (BEAKER) 0.03 K/ L 0.01-0.08 (test code = 417) IMMATURE GRANULOCYTES-RELATIVE 1 % 0-1 PERCENT (BEAKER) (test code = 2801) POCT-GLUCOSE [id number] 19:45:00 Test Item Value Reference Range Interpretation Comments POC-GLUCOSE METER 81 mg/dL 70-110 TESTED AT [place] [address] ([facility]) (test code = [facility] [address]38) POCT-GLUCOSE [id number] 15:40:00 Test Item Value Reference Range Interpretation Comments POC-GLUCOSE METER 190 mg/dL 70-110 H TESTED AT [place] [address] ([facility]) (test code = [facility] 1538) [address] POCT-GLUCOSE [id number] 10:56:00 Test Item Value Reference Range Interpretation Comments POC-GLUCOSE METER 262 mg/dL 70-110 H TESTED AT [place] [address] ([facility]) (test code = [facility] 1538) [address] POCT-GLUCOSE [id number] 08:59:00 Test Item Value Reference Range Interpretation Comments POC-GLUCOSE METER 246 mg/dL 70-110 H TESTED AT [place] [address] ([facility]) (test code = [facility] 1538) [address] POCT-GLUCOSE [id number] 08:13:00 Test Item Value Reference Range Interpretation Comments POC-GLUCOSE METER 176 mg/dL 70-110 H TESTED AT [place] [address] (BEAKER) (test code = [facility] Ciro [facility] 1538) [address] POCT-GLUCOSE [id number] 07:18:00 Test Item Value Reference Range Interpretation Comments POC-GLUCOSE METER 193 mg/dL 70-110 H TESTED AT [place] [id number] (BEAKER) (test code = [facility] Ciro [facility] 1538) [address] POCT-GLUCOSE [id number] 06:35:00 Test Item Value Reference Range Interpretation Comments POC-GLUCOSE METER 178 mg/dL 70-110 H TESTED AT [place] [address] (BEAKER) (test code = [facility] 1538) [address] BASIC METABOLIC [id number] 06:18:00 Test Item Value Reference Range Interpretation Comments SODIUM (BEAKER) 138 meq/L 136-145 (test code = 381) POTASSIUM (BEAKER) 4.3 meq/L 3.5-5.1 (test code = 379) CHLORIDE (BEAKER) 105 meq/L 98-107 (test code = 382) CO2 (BEAKER) (test 26 meq/L 22-29 code = 355) BLOOD UREA NITROGEN 19 mg/dL 7-21 (BEAKER) (test code = 354) CREATININE (BEAKER) 0.67 mg/dL 0.57-1.25 (test code = 358) GLUCOSE RANDOM 142 mg/dL 70-105 H (BEAKER) (test code = 652) CALCIUM (BEAKER) 8.4 mg/dL 8.4-10.2 (test code = 697) EGFR (BEAKER) (test 130 mL/min/1.73 ESTIM ATED GFR IS code = 1092) sq m NOT ACCURATE CREATININE CLEARANCE IN PREDICTING GLOMERULAR FILTRATION RATE . ESTIMATED GFR I S NOT APPLICABLE FOR DIALYSIS PATIEN TS. CBC W/PLT COUNT & AUTO [id number] 06:07:00 Test Item Value Reference Range Interpretation Comments WHITE BLOOD CELL COUNT (BEAKER) 12.9 K/ L 3.5-10.5 H (test code = 775) RED BLOOD CELL COUNT (BEAKER) 3.38 M/ L 3.93-5.22 L (test code = 761) HEMOGLOBIN (BEAKER) (test code = 8.9 GM/DL 11.2-15.7 L 410) HEMATOCRIT (BEAKER) (test code = 29.3 % 34.1-44.9 L 411) MEAN CORPUSCULAR VOLUME (BEAKER) 86.7 fL 79.4-94.8 (test code = 753) MEAN CORPUSCULAR HEMOGLOBIN 26.3 pg 25.6-32.2 (BEAKER) (test code = 751) MEAN CORPUSCULAR HEMOGLOBIN CONC 30.4 GM/DL 32.2-35.5 L (BEAKER) (test code = 752) RED CELL DISTRIBUTION WIDTH 15.7 % 11.7-14.4 H (BEAKER) (test code = 412) PLATELET COUNT (BEAKER) (test 301 K/CU MM 150-450 code = 756) MEAN PLATELET VOLUME (BEAKER) 10.5 fL 9.4-12.3 (test code = 754) NUCLEATED RED BLOOD CELLS 0 /100 WBC 0-0 (BEAKER) (test code = 413) NEUTROPHILS RELATIVE PERCENT 71 % (BEAKER) (test code = 429) LYMPHOCYTES RELATIVE PERCENT 21 % (BEAKER) (test code = 430) MONOCYTES RELATIVE PERCENT 6 % (BEAKER) (test code = 431) EOSINOPHILS RELATIVE PERCENT 2 % (BEAKER) (test code = 432) BASOPHILS RELATIVE PERCENT 0 % (BEAKER) (test code = 437) NEUTROPHILS ABSOLUTE COUNT 9.13 K/ L 1.56-6.13 H (BEAKER) (test code = 670) LYMPHOCYTES ABSOLUTE COUNT 2.70 K/ L 1.18-3.74 (BEAKER) (test code = 414) MONOCYTES ABSOLUTE COUNT (BEAKER) 0.74 K/ L 0.24-0.36 H (test code = 415) EOSINOPHILS ABSOLUTE COUNT 0.19 K/ L 0.04-0.36 (BEAKER) (test code = 416) BASOPHILS ABSOLUTE COUNT (BEAKER) 0.01 K/ L 0.01-0.08 (test code = 417) IMMATURE GRANULOCYTES-RELATIVE 1 % 0-1 PERCENT (BEAKER) (test code = 1660) POCT-GLUCOSE [id number] 05:15:00 Test Item Value Reference Range Interpretation Comments POC-GLUCOSE METER 169 mg/dL 70-[address] [facility] 6720 (BEAKER) (test code = [place] 1538) [address] POCT-GLUCOSE [id number] 04:27:00 Test Item Value Reference Range Interpretation Comments POC-GLUCOSE METER 271 mg/dL 70-110 H TESTED AT [place] [address] (BEAKER) (test code = [facility] Ciro [facility] 1538) [address] POCT-GLUCOSE [id number] 03:45:00 Test Item Value Reference Range Interpretation Comments POC-GLUCOSE METER 269 mg/dL 70-110 H TESTED AT [place] [address] (BEAKER) (test code = [facility] Ciro [facility] 1538) [address] POCT-GLUCOSE [id number] 01:40:00 Test Item Value Reference Range Interpretation Comments POC-GLUCOSE METER 200 mg/dL 70-110 H TESTED AT [place] [address] (BEAKER) (test code = [facility] 1538) [address] BASIC METABOLIC [id number] 00:50:00 Test Item Value Reference Range Interpretation Comments SODIUM (BEAKER) 138 meq/L 136-145 (test code = 381) POTASSIUM (BEAKER) 4.0 meq/L 3.5-5.1 (test code = 379) CHLORIDE (BEAKER) 105 meq/L 98-107 (test code = 382) CO2 (BEAKER) (test 25 meq/L 22-29 code = 355) BLOOD UREA NITROGEN 19 mg/dL 7-21 (BEAKER) (test code = 354) CREATININE (BEAKER) 0.71 mg/dL 0.57-1.25 (test code = 358) GLUCOSE RANDOM 101 mg/dL 70-105 (BEAKER) (test code = 652) CALCIUM (BEAKER) 8.1 mg/dL 8.4-10.2 L (test code = 697) EGFR (BEAKER) (test 122 mL/min/1.73 ESTIM ATED GFR IS code = 1092) sq m NOT ACCURATE CREATININE CLEARANCE IN PREDICTING GLOMERULAR FILTRATION RATE . ESTIMATED GFR I S NOT APPLICABLE FOR DIALYSIS PATIEN TS. POCT-GLUCOSE [id number] 00:49:00 Test Item Value Reference Range Interpretation Comments POC-GLUCOSE METER 103 mg/dL 70-110 TESTED AT [place] [id number] (BEAKER) (test code = [facility] Ciro [facility] 1538) [address] POCT-GLUCOSE [id number] 00:28:00 Test Item Value Reference Range Interpretation Comments POC-GLUCOSE METER 109 mg/dL 70-110 TESTED AT [place] [address] (BEAKER) (test code = PAUL Tanner [facility] 1538) [address] POCT-GLUCOSE [id number] 23:10:00 Test Item Value Reference Range Interpretation Comments POC-GLUCOSE METER 191 mg/dL 70-110 H TESTED AT [place] [address] ([facility]) (test code = PAUL Tanner [facility] 1538) [address] POCT-GLUCOSE [id number] 22:17:00 Test Item Value Reference Range Interpretation Comments POC-GLUCOSE METER 257 mg/dL 70-110 H TESTED AT [place] [address] ([facility]) (test code = [facility] Ciro [facility] 1538) [address] POCT-GLUCOSE [id number] 21:28:00 Test Item Value Reference Range Interpretation Comments POC-GLUCOSE METER 261 mg/dL 70-110 H TESTED AT [place] [address] ([facility]) (test code = [facility] Ciro [facility] 1538) [address] POCT-GLUCOSE [id number] 20:19:00 Test Item Value Reference Range Interpretation Comments POC-GLUCOSE METER 223 mg/dL 70-110 H TESTED AT [place] [address] ([facility]) (test code = [facility] Ciro [facility] 1538) [address] POCT-GLUCOSE [id number] 19:30:00 Test Item Value Reference Range Interpretation Comments POC-GLUCOSE METER 218 mg/dL 70-110 H TESTED AT [place] [address] ([facility]) (test code = [facility] 1538) [address] POCT-GLUCOSE [id number] 18:28:00 Test Item Value Reference Range Interpretation Comments POC-GLUCOSE METER 167 mg/dL 70-110 H TESTED AT [place] [address] ([facility]) (test code = [facility] 1538) [address] BASIC METABOLIC [id number] 17:37:00 Test Item Value Reference Range Interpretation Comments SODIUM (BEAKER) 136 meq/L 136-145 (test code = 381) POTASSIUM (BEAKER) 4.2 meq/L 3.5-5.1 (test code = 379) CHLORIDE (BEAKER) 104 meq/L 98-107 (test code = 382) CO2 (BEAKER) (test 23 meq/L 22-29 code = 355) BLOOD UREA NITROGEN 17 mg/dL 7-21 (BEAKER) (test code = 354) CREATININE (BEAKER) 0.79 mg/dL 0.57-1.25 (test code = 358) GLUCOSE RANDOM 340 mg/dL 70-105 H ([facility]) (test code = 652) CALCIUM ([facility]) 8.1 mg/dL 8.4-10.2 L (test code = 697) EGFR ([facility]) (test 107 mL/min/1.73 ESTIM ATED GFR IS code = 1092) sq m NOT ACCURATE CREATININE CLEARANCE IN PREDICTING GLOMERULAR FILTRATION RATE . ESTIMATED GFR I S NOT APPLICABLE FOR DIALYSIS PATIEN TS. POCT-GLUCOSE [id number] 17:29:00 Test Item Value Reference Range Interpretation Comments POC-GLUCOSE METER 357 mg/dL 70-110 H TESTED AT [place] [address] ([facility]) (test code = [employer] [facility] 1538) [address] POCT-GLUCOSE [id number] 16:17:00 Test Item Value Reference Range Interpretation Comments POC-GLUCOSE METER 412 mg/dL 70-110 HH TESTED AT [place] [address] ([facility]) (test code = [employer] [facility] 1538) [address] POCT-GLUCOSE [id number] 14:57:00 Test Item Value Reference Range Interpretation Comments POC-GLUCOSE METER 356 mg/dL 70-110 H TESTED AT [place] [address] ([facility]) (test code = [employer] [facility] 1538) [address] POCT-GLUCOSE [id number] 14:08:00 Test Item Value Reference Range Interpretation Comments POC-GLUCOSE METER 247 mg/dL 70-110 H TESTED AT [place] [address] ([facility]) (test code = [employer] [facility] 1538) [address] RAD, ABDOMEN/KUB, 1 VIEW [id number] 14:07:00Reason for exam:->Abdominal pain, Cystic FibrosisShould this be performed at the bedside?->YesFINAL REPORT Two frontal views of the abdomen HISTORY: Abdominal pain COMPARISON: 05/03/2017 IMPRESSION: Moderate amount of stool in the colon. Nonobstructive bowel gas pattern. Bronchiectasis in the lungs. Lung bases otherwise clear. Signed: Michael Onofreeport Verified Date/Time: 02/20/2018 14:07:49 Reading Location: [facility] C013Y CT Body Reading Room BASI METABOLIC [id number] 13:15:00 Test Item Value Reference Range Interpretation Comments SODIUM (BEAKER) 136 meq/L 136-145 (test code = 381) POTASSIUM (BEAKER) 3.7 meq/L 3.5-5.1 (test code = 379) CHLORIDE (BEAKER) 104 meq/L 98-107 (test code = 382) CO2 (BEAKER) (test 23 meq/L 22-29 code = 355) BLOOD UREA NITROGEN 14 mg/dL 7-21 (BEAKER) (test code = 354) CREATININE (BEAKER) 0.65 mg/dL 0.57-1.25 (test code = 358) GLUCOSE RANDOM 318 mg/dL 70-105 H (BEAKER) (test code = 652) CALCIUM (BEAKER) 8.4 mg/dL 8.4-10.2 (test code = 697) EGFR ([facility]) (test 135 mL/min/1.73 ESTIM ATED GFR IS code = 1092) sq m NOT ACCURATE CREATININE CLEARANCE IN PREDICTING GLOMERULAR FILTRATION RATE . ESTIMATED GFR I S NOT APPLICABLE FOR DIALYSIS PATIEN TS. POCT-GLUCOSE [id number] 12:22:00 Test Item Value Reference Range Interpretation Comments POC-GLUCOSE METER 367 mg/dL 70-110 H TESTED AT [place] [address] ([facility]) (test code = [facility] 1538) [id number] POCT-GLUCOSE [id number] 11:11:00 Test Item Value Reference Range Interpretation Comments POC-GLUCOSE METER 458 mg/dL 70-110 HH TESTED AT [place] [address] ([facility]) (test code = [facility] 1538) [id number] 11:11:00 Test Item Value Reference Range Interpretation Comments GLUCOSE RANDOM ([facility]) (test code 449 mg/dL 70-105 HH = 652) POCT-GLUCOSE [id number] 10:06:00 Test Item Value Reference Range Interpretation Comments POC-GLUCOSE METER > mg/dL 70-110 HH OUTSIDE ME ASURING ([facility]) (test code [facility] AT [place] [address] = 1538) [facility] [id number] SPUTUM CULTURE + GRAM [id number] 09:42:00 Test Item Value Reference Range Interpretation Comments CULTURE ([facility]) (test code = See comment 1095) Culture charges credited as "incorrect order". Please refer to CF respiratory culture for results.Previously reported organism is no longer reported. Please contact the Microbiology Department for additional information.POCT- GLUCOSE [id number] 09:12:00 Test Item Value Reference Range Interpretation Comments POC-GLUCOSE METER 388 mg/dL 70-110 H TESTED AT [place] [address] ([facility]) (test code = [facility] 1538) [id number] POCT-GLUCOSE [id number] 07:56:00 Test Item Value Reference Range Interpretation Comments POC-GLUCOSE METER 194 mg/dL 70-110 H TESTED AT [place] [address] ([facility]) (test code = [facility] 1538) [id number] POCT-GLUCOSE [id number] 06:35:00 Test Item Value Reference Range Interpretation Comments POC-GLUCOSE METER 157 mg/dL 70-110 H TESTED AT [place] [address] ([facility]) (test code = [facility] 1538) [address] POCT-GLUCOSE [id number] 05:10:00 Test Item Value Reference Range Interpretation Comments POC-GLUCOSE METER 247 mg/dL 70-110 H TESTED AT [place] [address] ([facility]) (test code = [facility] 1538) [id number] BASIC METABOLIC [id number] 04:54:00 Test Item Value Reference Range Interpretation Comments SODIUM (BEAKER) 135 meq/L 136-145 L (test code = 381) POTASSIUM (BEAKER) 3.9 meq/L 3.5-5.1 (test code = 379) CHLORIDE (BEAKER) 104 meq/L 98-107 (test code = 382) CO2 (BEAKER) (test 23 meq/L 22-29 code = 355) BLOOD UREA NITROGEN 20 mg/dL 7-21 (BEAKER) (test code = 354) CREATININE (BEAKER) 0.72 mg/dL 0.57-1.25 (test code = 358) GLUCOSE RANDOM 263 mg/dL 70-105 H (BEAKER) (test code = 652) CALCIUM (BEAKER) 8.0 mg/dL 8.4-10.2 L (test code = 697) EGFR (BEAKER) (test 120 mL/min/1.73 ESTIM ATED GFR IS code = 1092) sq m NOT ACCURATE CREATININE CLEARANCE IN PREDICTING GLOMERULAR FILTRATION RATE . ESTIMATED GFR I S NOT APPLICABLE FOR DIALYSIS PATIEN TS. POCT-GLUCOSE [id number] 04:07:00 Test Item Value Reference Range Interpretation Comments POC-GLUCOSE METER 290 mg/dL 70-110 H TESTED AT [place] [address] ([facility]) (test code = [facility] 1538) [address] POCT-GLUCOSE [id number] 03:04:00 Test Item Value Reference Range Interpretation Comments POC-GLUCOSE METER 309 mg/dL 70-110 H TESTED AT [place] [address] ([facility]) (test code = [facility] 1538) [id number] POCT-GLUCOSE [id number] 01:36:00 Test Item Value Reference Range Interpretation Comments POC-GLUCOSE METER 361 mg/dL 70-110 H TESTED AT [place] [address] ([facility]) (test code = [facility] 1538) [address] POCT-GLUCOSE [id number] 00:06:00 Test Item Value Reference Range Interpretation Comments POC-GLUCOSE METER 308 mg/dL 70-110 H TESTED AT [place] [address] ([facility]) (test code = [facility] 1538) [address] URINALYSIS W/ [id number] 23:11:00 Test Item Value Reference Range Interpretation Comments COLOR (BEAKER) (test code = Light Yellow 470) CLARITY (BEAKER) (test code = Clear 469) SPECIFIC GRAVITY UA (BEAKER) 1.033 1.001-1.035 (test code = 468) PH UA (BEAKER) (test code = 6.0 5.0-8.0 467) PROTEIN UA (BEAKER) (test code 50 mg/dL Negative A = 464) GLUCOSE UA (BEAKER) (test code >1000 mg/dL Negative A = 365) KETONES UA (BEAKER) (test code Negative Negative = 371) BILIRUBIN UA (BEAKER) (test Negative Negative code = 462) BLOOD UA (BEAKER) (test code = Negative Negative 461) NITRITE UA (BEAKER) (test code Negative Negative = 465) LEUKOCYTE ESTERASE UA (BEAKER) Negative Negative (test code = 466) UROBILINOGEN UA (BEAKER) (test 0.2 mg/dL 0.2-1.0 code = 463) RBC UA (BEAKER) (test code = 3 /HPF 519) WBC UA (BEAKER) (test code = 3 /HPF 520) MUCUS (BEAKER) (test code = Rare 1574) SQUAMOUS EPITHELIAL (BEAKER) 1 /HPF (test code = 516) SOURCE(BEAKER) (test code = Urine, Voided 1186) POCT-GLUCOSE [id number] 22:35:00 Test Item Value Reference Range Interpretation Comments POC-GLUCOSE METER 350 mg/dL 70-110 H TESTED AT [place] [address] (BEAKER) (test code = [facility] Ciro [facility] 1538) [address] POCT-GLUCOSE [id number] 21:17:00 Test Item Value Reference Range Interpretation Comments POC-GLUCOSE METER 438 mg/dL 70-110 HH TESTED AT [place] [address] ([facility]) (test code = [facility] Ciro [facility] 1538) [address] POCT-GLUCOSE [id number] 20:16:00 Test Item Value Reference Range Interpretation Comments POC-GLUCOSE METER 446 mg/dL 70-110 HH TESTED AT [place] [address] ([facility]) (test code = [facility] 1538) [address] POCT-GLUCOSE [id number] 18:57:00 Test Item Value Reference Range Interpretation Comments POC-GLUCOSE METER 452 mg/dL 70-110 HH Will Repea t Test/TESTED (BEAKER) (test code = AT [address] 1538) [facility] [address] [id number] 18:10:00 Test Item Value Reference Range Interpretation Comments GLUCOSE RANDOM (BEAKER) (test code 548 mg/dL 70-105 HH = 652) If last glucose was less than 500, may do bedside glucose instead of serum glucose.POCT-GLUCOSE [id number] 17:46:00 Test Item Value Reference Range Interpretation Comments POC-GLUCOSE METER > mg/dL 70-110 HH OUTSIDE ME ASURING (BEAKER) [facility] Test/TESTED AT [address] [address] POCT-GLUCOSE [id number] 16:37:00 Test Item Value Reference Range Interpretation Comments POC-GLUCOSE METER > mg/dL 70-110 HH OUTSIDE ME ASURING (BEAKER) (test code = RANGEW ill Repeat 1538) Test/TESTED AT [facility] 67[address] [facility] [address] [id number] 16:07:00 Test Item Value Reference Range Interpretation Comments GLUCOSE RANDOM (BEAKER) (test code 658 mg/dL 70-105 HH = 652) If last glucose was less than 500, may do bedside glucose instead of serum glucose.[id number] 15:53:00 Test Item Value Reference Range Interpretation Comments POTASSIUM (BEAKER) (test code = 4.2 meq/L 3.5-5.1 379) If last glucose was less than 500, may do bedside glucose instead of serum glucose.POCT-GLUCOSE [id number] 15:37:00 Test Item Value Reference Range Interpretation Comments POC-GLUCOSE METER > mg/dL 70-110 HH OUTSIDE ME ASURING (BEAKER) (test code RANGETES MAGDALENO AT [facility] 6720 = 1538) [facility] [address] [id number] 14:05:00 Test Item Value Reference Range Interpretation Comments GLUCOSE RANDOM (BEAKER) (test code 682 mg/dL 70-105 HH = 652) If last glucose was less than 500, may do bedside glucose instead of serum glucose.[id number] 14:03:00 Test Item Value Reference Range Interpretation Comments POTASSIUM (BEAKER) (test code = 4.2 meq/L 3.5-5.1 379) If last glucose was less than 500, may do bedside glucose instead of serum glucose.KETONE, [id number] 13:59:00 Test Item Value Reference Range Interpretation Comments KETONES, BLOOD (BEAKER) (test code 0.1 mmol/L <0.4 = 1103) BASIC METABOLIC [id number] 10:48:00 Test Item Value Reference Range Interpretation Comments SODIUM (BEAKER) 129 meq/L 136-145 L (test code = 381) POTASSIUM (BEAKER) 5.2 meq/L 3.5-5.1 H (test code = 379) CHLORIDE (BEAKER) 91 meq/L 98-107 L (test code = 382) CO2 (BEAKER) (test 22 meq/L 22-29 code = 355) BLOOD UREA NITROGEN 18 mg/dL 7-21 (BEAKER) (test code = 354) CREATININE (BEAKER) 1.28 mg/dL 0.57-1.25 H (test code = 358) GLUCOSE RANDOM 889 mg/dL 70-105 HH (BEAKER) (test code = 652) CALCIUM (BEAKER) 8.1 mg/dL 8.4-10.2 L (test code = 697) EGFR (BEAKER) (test 62 mL/min/1.73 ESTIMA MAGDALENO GFR IS code = 1092) sq m NOT ACCURATE CREATININE CLEARANCE IN PREDICTING GLOMERULAR FILTRATION RATE . ESTIMATED GFR I S NOT APPLICABLE FOR DIALYSIS PATIEN TS. TROPONIN [id number] 10:40:00 Test Item Value Reference Range Interpretation Comments TROPONIN I (BEAKER) (test code = 397) < ng/mL 0.00-0.03 Troponin I (TnI) levels [...] acidosis, acute neurological disease, and persistent tachyarrhythmia.POCT-GLUCOSE [id number] 09:51:00 Test Item Value Reference Range Interpretation Comments POC-GLUCOSE METER > mg/dL 70-110 HH OUTSIDE ME ASURING (BEAKER) (test code RANGENot domenica RUVALCABA MD/TESTED = 1538) AT [address] [address] POCT-GLUCOSE [id number] 08:34:00 Test Item Value Reference Range Interpretation Comments POC-GLUCOSE METER > mg/dL 70-110 HH OUTSIDE ME ASURING (BEAKER) (test code RANGENot domenica RUVALCABA MD/TESTED = 1538) AT [place] [address] [facility] 7703 0 RESPIRATORY PANEL [id number] 07:53:00 Test Item Value Reference Range Interpretation Comments HUMAN METAPNEUMOVIRUS Not detected Not detected, (BEAKER) (test code = Inconclusive 8848) RHINOVIRUS (BEAKER) (test Not detected Not detected, code = 5554) Inconclusive INFLUENZA A (BEAKER) (test Not detected Not detected, code = 2685) Inconclusive INFLUENZA A SUBTYPE H1 Not detected Not detected, (BEAKER) (test code = Inconclusive 2686) INFLUENZA A SUBTYPE H3 Not detected Not detected, (BEAKER) (test code = Inconclusive 2687) INFLUENZA A SUBTYPE Not detected Not detected, H1-2009 (BEAKER) (test Inconclusive code = 3198) INFLUENZA B (BEAKER) (test Not detected Not detected, code = 2688) Inconclusive RESPIRATORY SYNCYTIAL Not detected Not detected, VIRUS (BEAKER) (test code Inconclusive = 3199) PARAINFLUENZA VIRUS 1 Not detected Not detected, (BEAKER) (test code = Inconclusive 2691) PARAINFLUENZA VIRUS 2 Not detected Not detected, (BEAKER) (test code = Inconclusive 2692) PARAINFLUENZA VIRUS 3 Not detected Not detected, (BEAKER) (test code = Inconclusive 2693) PARAINFLUENZA VIRUS 4 Not detected Not detected, (BEAKER) (test code = Inconclusive 3200) ADENOVIRUS (BEAKER) (test Not detected Not detected, code = 2694) Inconclusive CORONAVIRUS 229E (BEAKER) Not detected Not detected, (test code = 3201) Inconclusive CORONAVIRUS HKU1 (BEAKER) Not detected Not detected, (test code = 3202) Inconclusive CORONAVIRUS NL63 (BEAKER) Not detected Not detected, (test code = 3203) Inconclusive CORONAVIRUS OC43 (BEAKER) Not detected Not detected, (test code = 3204) Inconclusive BORDETELLA PERTUSSIS Not detected Not detected, (BEAKER) (test code = Inconclusive 3205) CHLAMYDOPHILA PNEUMONIAE Not detected Not detected, (BEAKER) (test code = Inconclusive 3206) MYCOPLASMA PNEUMONIAE Not detected Not detected, (BEAKER) (test code = Inconclusive 3207) HEMOGLOBIN [id number] 07:34:00 Test Item Value Reference Range Interpretation Comments HEMOGLOBIN A1C (BEAKER) (test code = 14.5 % 4.3-6.1 H 368) [id number] 05:23:00 Test Item Value Reference Range Interpretation Comments BLOOD UREA NITROGEN (BEAKER) (test 15 mg/dL 7-21 code = 354) [id number] 05:23:00 Test Item Value Reference Range Interpretation Comments CREATININE (BEAKER) 1.31 mg/dL 0.57-1.25 H (test code = 358) EGFR (BEAKER) (test 60 mL/min/1.73 ESTIMA MAGDALENO GFR IS code = 1092) sq m NOT ACCURATE CREATININE CLEARANCE IN PREDICTING GLOMERULAR FILTRATION RATE . ESTIMATED GFR I S NOT APPLICABLE FOR DIALYSIS PATIEN TS. POCT-LACTIC ACID, [id number] 02:44:00 Test Item Value Reference Range Interpretation Comments POC-LACTIC ACID, 1.4 mmol/L 0.9-1.7 TESTED AT [facility] [address] (BEAKER) (test PA[place] code = 2805) [address] TROPONIN [id number] 00:25:00 Test Item Value Reference Range Interpretation Comments TROPONIN I (BEAKER) (test code = 397) < ng/mL 0.00-0.03 Troponin I (TnI) levels [...] disease, and persistent tachyarrhythmia.LACTIC ACID, VENOUS, WHOLE BLOOD 2018-02-19 00:16:00 Test Item Value Reference Range Interpretation Comments LACTATE BLOOD VENOUS (2) (BEAKER) 2.1 mmol/L 0.5-2.2 (test code = 2872) Effective 02/26/2016: Units/Reference Range ChangeNew: 0.5-2.2 mmol/L Previous: 5-20 mg/dLKETONE, [id number] 23:58:00 Test Item Value Reference Range Interpretation Comments KETONES, BLOOD (BEAKER) (test code 0.4 mmol/L <0.4 H = 1103) RAPID STREP A [id number] 23:13:00 Test Item Value Reference Range Interpretation Comments STREP A ANTIGEN (BEAKER) (test code Negative Negative = 556) TROPONIN [id number] 22:54:00 Test Item Value Reference Range Interpretation Comments TROPONIN I (BEAKER) (test code = 397) < ng/mL 0.00-0.03 Troponin I (TnI) levels [...] and persistent tachyarrhythmia.CREATINE KINASE (CK), TOTAL AND MB 2018-02-18 22:54:00 Test Item Value Reference Range Interpretation Comments CREATINE KINASE TOTAL 13 U/L 29-200 L (BEAKER) (test code = 380) CREATINE KINASE-MB 0.1 ng/mL 0.0-6.6 (BEAKER) (test code = 750) CREATINE KINASE-MB INDEX 0.8 % Ashley ble to Calculate (BEAKER) (test code = 395) CK-MB Reference Range:<6.7 Normal6.7-10.0 Borderline>10.0 AbnormalCOMPREHENSIVE METABOLIC [id number] 22:48:00 Test Item Value Reference Range Interpretation Comments TOTAL PROTEIN 7.2 gm/dL 6.0-8.3 (BEAKER) (test code = 770) ALBUMIN (BEAKER) 2.7 g/dL 3.5-5.0 L (test code = 1145) ALKALINE PHOSPHATASE 182 U/L 40-150 H (BEAKER) (test code = 346) BILIRUBIN TOTAL 0.4 mg/dL 0.2-1.2 (BEAKER) (test code = 377) SODIUM (BEAKER) (test 135 meq/L 136-145 L code = 381) POTASSIUM (BEAKER) 3.8 meq/L 3.5-5.1 (test code = 379) CHLORIDE (BEAKER) 95 meq/L 98-107 L (test code = 382) CO2 (BEAKER) (test 28 meq/L 22-29 code = 355) BLOOD UREA NITROGEN 8 mg/dL 7-21 (BEAKER) (test code = 354) CREATININE (BEAKER) 0.68 mg/dL 0.57-1.25 (test code = 358) GLUCOSE RANDOM 180 mg/dL 70-105 H (BEAKER) (test code = 652) CALCIUM (BEAKER) 9.0 mg/dL 8.4-10.2 (test code = 697) AST (SGOT) (BEAKER) 9 U/L 5-34 (test code = 353) ALT (SGPT) (BEAKER) 6 U/L 6-55 (test code = 347) EGFR (BEAKER) (test 128 ESTIMATE D GFR IS code = 1092) mL/min/1.73 sq NOT ACCURA TE m CREATININE CLEARANCE IN PREDICTING GLOMERULAR FILTRATION RATE . ESTIMATED GFR I S NOT APPLICABLE FOR DIALYSIS PATIEN TS. RAPID INFLUENZA A&B [id number] 22:47:00 Test Item Value Reference Range Interpretation Comments RAPID INFLUENZA A AG (BEAKER) Negative Negative, Inconclusive (test code = 1622) RAPID INFLUENZA B AG (BEAKER) Negative Negative, Inconclusive (test code = 1623) LACTIC ACID, VENOUS, WHOLE [id number] 22:43:00 Test Item Value Reference Range Interpretation Comments LACTATE BLOOD VENOUS (2) (BEAKER) 0.9 mmol/L 0.5-2.2 (test code = 2872) Effective 02/26/2016: Units/Reference Range ChangeNew: 0.5-2.2 mmol/L Previous: 5-20 mg/dLPOCT-LACTIC ACID, [id number] 22:36:00 Test Item Value Reference Range Interpretation Comments POC-LACTIC ACID, 0.7 mmol/L 0.9-1.7 L TESTED AT [facility] [address] (BEAKER) (test [place] code = 2805) [address] POCT-GLUCOSE [id number] 22:35:00 Test Item Value Reference Range Interpretation Comments POC-GLUCOSE METER 191 mg/dL 70-[address] [facility] 6720 (BEAKER) (test code = NAOMITAYO [place] 1538) [address] CBC W/PLT COUNT & AUTO [id number] 22:33:00 Test Item Value Reference Range Interpretation Comments WHITE BLOOD CELL COUNT (BEAKER) 19.5 K/ L 3.5-10.5 H (test code = 775) RED BLOOD CELL COUNT (BEAKER) 4.00 M/ L 3.93-5.22 (test code = 761) HEMOGLOBIN (BEAKER) (test code = 10.6 GM/DL 11.2-15.7 L 410) HEMATOCRIT (BEAKER) (test code = 33.5 % 34.1-44.9 L 411) MEAN CORPUSCULAR VOLUME (BEAKER) 83.8 fL 79.4-94.8 (test code = 753) MEAN CORPUSCULAR HEMOGLOBIN 26.5 pg 25.6-32.2 (BEAKER) (test code = 751) MEAN CORPUSCULAR HEMOGLOBIN CONC 31.6 GM/DL 32.2-35.5 L (BEAKER) (test code = 752) RED CELL DISTRIBUTION WIDTH 15.5 % 11.7-14.4 H (BEAKER) (test code = 412) PLATELET COUNT (BEAKER) (test 357 K/CU MM 150-450 code = 756) MEAN PLATELET VOLUME (BEAKER) 10.9 fL 9.4-12.3 (test code = 754) NUCLEATED RED BLOOD CELLS 0 /100 WBC 0-0 (BEAKER) (test code = 413) NEUTROPHILS RELATIVE PERCENT 83 % (BEAKER) (test code = 429) LYMPHOCYTES RELATIVE PERCENT 9 % (BEAKER) (test code = 430) MONOCYTES RELATIVE PERCENT 7 % (BEAKER) (test code = 431) EOSINOPHILS RELATIVE PERCENT 1 % (BEAKER) (test code = 432) BASOPHILS RELATIVE PERCENT 0 % (BEAKER) (test code = 437) NEUTROPHILS ABSOLUTE COUNT 16.10 K/ L 1.56-6.13 H (BEAKER) (test code = 670) LYMPHOCYTES ABSOLUTE COUNT 1.79 K/ L 1.18-3.74 (BEAKER) (test code = 414) MONOCYTES ABSOLUTE COUNT (BEAKER) 1.37 K/ L 0.24-0.36 H (test code = 415) EOSINOPHILS ABSOLUTE COUNT 0.12 K/ L 0.04-0.36 (BEAKER) (test code = 416) BASOPHILS ABSOLUTE COUNT (BEAKER) 0.04 K/ L 0.01-0.08 (test code = 417) IMMATURE GRANULOCYTES-RELATIVE 1 % 0-1 PERCENT (BEAKER) (test code = 2801) RAD, CHEST, 1 VIEW, NON [id number] 22:18:00Reason for exam:->SHORTNESS OF BREATHShould this be performed at the bedside?->YesFINAL REPORT History: Shortness of breath. FINDINGS: Compared with November 29, 2017, reticulonodular and patchy airspace disease is again seen in the lungs bilaterally. No visible effusions. Right chest port position is unchanged. No pneumothorax. Heart and mediastinum are stable. No mediastinal or hilar adenopathy. Bones are unremarkable. IMPRESSION: 1. Diffuse bilateral mixed reticular nodule and pulmonary airspace opacity, unchanged since the previous study. No new cardiopulmonary abnormalities. Signed: Flip Singereport Verified Date/Time: 02/18/2018 22:18:49 Reading Location: [facility] Diagnostic Imaging Reading Room - [place] [address] AFB CULTURE + [id number] 14:30:00 Test Item Value Reference Range Interpretation Comments CULTURE (BEAKER) (test No acid-fast bacilli code = 1095) isolated in 42 days AFB SMEAR (BEAKER) No acid fast bacilli (test code = 994) seen FUNGUS CULTURE + [id number] 15:40:00 Test Item Value Reference Range Interpretation Comments CULTURE (BEAKER) A 1+ Clau (test code = dubliniensis 1095) FUNGUS SMEAR 1+ budding yeast (BEAKER) (test code = 1406) CF RESPIRATORY [id number] 10:56:00 Test Item Value Reference Range Interpretation Comments CULTURE (BEAKER) (test code = 1095) Amikacin (test code Susceptible 0-16 S = 1) , Resistant <0 or >16 Aztreonam (test Susceptible 0-8 , S code = 32) Resistant <0 or >8 Cefepime (test code Susceptible 0-8 , S = 51) Resistant <0 or >8 Ceftazidime (test Susceptible 0-8 , S code = 27) Resistant <0 or >8 Ciprofloxacin (test Susceptible 0-1 , R code = 7) Resistant <0 or >1 Doripenem (test Susceptible 0-2 , R code = 100) Resistant <0 or >2 Gentamicin (test Susceptible 0-4 , S code = 18) Resistant <0 or >4 Imipenem (test code Susceptible 0-2 , R = 19) Resistant <0 or >2 Levofloxacin (test Susceptible 0-2 , R code = 22) Resistant <0 or >2 Meropenem (test Susceptible 0-2 , S code = 34) Resistant <0 or >2 Piperacillin (test Susceptible 0-16 R code = 24) , Resistant <0 or >16 Piperacillin + Susceptible 0-16 S Tazobactam (test , Resistant <0 or code = 29) >16 Tobramycin (test Susceptible 0-4 , S code = 25) Resistant <0 or >4 CULTURE (BEAKER) PSEUDOMONAS A 4+ Pseudomo viki (test code = 1095) AERUGINOSA aeruginos a (Mucoid-phenoty pe ) Amikacin (test code Susceptible 0-16 S = 1) , Resistant <0 or >16 Aztreonam (test Susceptible 0-8 , S code = 32) Resistant <0 or >8 Cefepime (test code Susceptible 0-8 , S = 51) Resistant <0 or >8 Ceftazidime (test Susceptible 0-8 , S code = 27) Resistant <0 or >8 Ciprofloxacin (test Susceptible 0-1 , R code = 7) Resistant <0 or >1 Doripenem (test Susceptible 0-2 , R code = 100) Resistant <0 or >2 Gentamicin (test Susceptible 0-4 , R code = 18) Resistant <0 or >4 Imipenem (test code Susceptible 0-2 , R = 19) Resistant <0 or >2 Levofloxacin (test Susceptible 0-2 , R code = 22) Resistant <0 or >2 Meropenem (test Susceptible 0-2 , R code = 34) Resistant <0 or >2 Piperacillin (test Susceptible 0-16 S code = 24) , Resistant <0 or >16 Piperacillin + Susceptible 0-16 S Tazobactam (test , Resistant <0 or code = 29) >16 Tobramycin (test Susceptible 0-4 , S code = 25) Resistant <0 or >4 CULTURE (BEAKER) A 4+ Pseudomo viki (test code = 1095) aeruginos a 2+ Normal respiratory derick presentBLOOD [id number] 23:00:00 Test Item Value Reference Range Interpretation Comments CULTURE (BEAKER) (test No growth in 5 days code = 1095) BLOOD [id number] 23:00:00 Test Item Value Reference Range Interpretation Comments CULTURE (BEAKER) (test No growth in 5 days code = 1095) POCT-GLUCOSE [id number] 11:04:00 Test Item Value Reference Range Interpretation Comments POC-GLUCOSE METER 107 mg/dL 70-[address] [facility] 6720 [facility] (test code = [place] 1538) [address] POCT-GLUCOSE [id number] 08:39:00 Test Item Value Reference Range Interpretation Comments POC-GLUCOSE METER 90 mg/dL 70-110 TESTED AT [place] [address] ([facility]) (test code = PAUL Tanner [facility] [address] 1538) POCT-GLUCOSE [id number] 21:21:00 Test Item Value Reference Range Interpretation Comments POC-GLUCOSE METER 63 mg/dL 70-110 L Notified R N MD/TESTED AT ([facility]) (test code = [place] [address]2468) [facility] 7703 0 POCT-GLUCOSE [id number] 17:03:00 Test Item Value Reference Range Interpretation Comments POC-GLUCOSE METER 61 mg/dL 70-110 L Will Repea t Test/TESTED ([facility]) (test code = AT [place] [address]) [facility] 7703 0 POCT-GLUCOSE [id number] 12:18:00 Test Item Value Reference Range Interpretation Comments POC-GLUCOSE METER 54 mg/dL 70-110 L Notified R N MD/TESTED AT ([facility]) (test code = [place] 222468) [facility] 7703 0 POCT-GLUCOSE [id number] 09:59:00 Test Item Value Reference Range Interpretation Comments POC-GLUCOSE METER 173 mg/dL 70-110 H TESTED AT [place] [address] ([facility]) (test code = PAUL Tanner [place] [address]) [address] BUN AND [id number] 05:43:00 Test Item Value Reference Range Interpretation Comments BLOOD UREA NITROGEN 14 mg/dL 7-21 ([facility]) (test code = 354) CREATININE ([facility]) 0.71 mg/dL 0.57-1.25 (test code = 358) EGFR ([facility]) (test 122 mL/min/1.73 ESTIM ATED GFR IS code = 1092) sq m NOT ACCURATE CREATININE CLEARANCE IN PREDICTING GLOMERULAR FILTRATION RATE . ESTIMATED GFR I S NOT APPLICABLE FOR DIALYSIS PATIEN TS. POCT-GLUCOSE [id number] 22:13:00 Test Item Value Reference Range Interpretation Comments POC-GLUCOSE METER 171 mg/dL 70-110 H TESTED AT [place] [address] ([facility]) (test code = NAOMITAYO Tanner [place] [address]) [address] POCT-GLUCOSE [id number] 17:15:00 Test Item Value Reference Range Interpretation Comments POC-GLUCOSE METER 163 mg/dL 70-110 H TESTED AT [place] [address] ([facility]) (test code = [facility] 1538) [address] SPIN/CONCENTRATION [id number] 15:40:00 Test Item Value Reference Range Interpretation Comments CONCENTRATION CHARGED ([facility]) (test Done code = 2657) POCT-GLUCOSE [id number] 12:57:00 Test Item Value Reference Range Interpretation Comments POC-GLUCOSE METER 210 mg/dL 70-110 H TESTED AT [place] [address] ([facility]) (test code = [facility] 1538) [address] POCT-GLUCOSE [id number] 08:13:00 Test Item Value Reference Range Interpretation Comments POC-GLUCOSE METER 288 mg/dL 70-110 H TESTED AT [place] [address] ([facility]) (test code = [facility] 1538) [address] BUN AND [id number] 04:09:00 Test Item Value Reference Range Interpretation Comments BLOOD UREA NITROGEN 13 mg/dL 7-21 ([facility]) (test code = 354) CREATININE ([facility]) 0.70 mg/dL 0.57-1.25 (test code = 358) EGFR ([facility]) (test 124 mL/min/1.73 ESTIM ATED GFR IS code = 1092) sq m NOT ACCURATE CREATININE CLEARANCE IN PREDICTING GLOMERULAR FILTRATION RATE . ESTIMATED GFR I S NOT APPLICABLE FOR DIALYSIS PATIEN TS. POCT-GLUCOSE [id number] 21:28:00 Test Item Value Reference Range Interpretation Comments POC-GLUCOSE METER 307 mg/dL 70-110 H TESTED AT [place] [address] ([facility]) (test code = [facility] 1538) [address] RESPIRATORY PANEL [id number] 19:09:00 Test Item Value Reference Range Interpretation Comments HUMAN METAPNEUMOVIRUS Not detected Not detected, ([facility]) (test code = Inconclusive 4403) RHINOVIRUS (BEAKER) Not detected Not detected, (test code = 2684) Inconclusive INFLUENZA A (BEAKER) Not detected Not detected, (test code = 2685) Inconclusive INFLUENZA A SUBTYPE H1 Not detected Not detected, (BEAKER) (test code = Inconclusive 2686) INFLUENZA A SUBTYPE H3 Not detected Not detected, (BEAKER) (test code = Inconclusive 2687) INFLUENZA A SUBTYPE Not detected Not detected, H1-2009 (BEAKER) (test Inconclusive code = 3198) INFLUENZA B (BEAKER) Not detected Not detected, (test code = 2688) Inconclusive RESPIRATORY SYNCYTIAL Not detected Not detected, VIRUS (BEAKER) (test Inconclusive code = 3199) PARAINFLUENZA VIRUS 1 Not detected Not detected, (BEAKER) (test code = Inconclusive 2691) PARAINFLUENZA VIRUS 2 Not detected Not detected, (BEAKER) (test code = Inconclusive 2692) PARAINFLUENZA VIRUS 3 Not detected Not detected, (BEAKER) (test code = Inconclusive 2693) PARAINFLUENZA VIRUS 4 Not detected Not detected, (BEAKER) (test code = Inconclusive 3200) ADENOVIRUS (BEAKER) Not detected Not detected, (test code = 2694) Inconclusive CORONAVIRUS 229E Not detected Not detected, (BEAKER) (test code = Inconclusive 3201) CORONAVIRUS HKU1 Detected Not detected, A FilmArray RP (BEAKER) (test code = Inconclusive assay for 3202) Coronavirus OC4 3 may cross react with some isolates of Coronavirus HKU 1. A dual positiv e may be due to cross reactivit y or may indicate a co-infection. CORONAVIRUS NL63 Not detected Not detected, (BEAKER) (test code = Inconclusive 3203) CORONAVIRUS OC43 Not detected Not detected, FilmArray RP (BEAKER) (test code = Inconclusive assay for 3204) Coronavirus OC4 3 may cross react with some isolates of Coronavirus HKU 1. A dual positiv e may be due to cross reactivit y or may indicate a co-infection. BORDETELLA PERTUSSIS Not detected Not detected, (BEAKER) (test code = Inconclusive 3205) CHLAMYDOPHILA Not detected Not detected, PNEUMONIAE (BEAKER) Inconclusive (test code = 3206) MYCOPLASMA PNEUMONIAE Not detected Not detected, (BEAKER) (test code = Inconclusive 3207) POCT-GLUCOSE [id number] 17:30:00 Test Item Value Reference Range Interpretation Comments POC-GLUCOSE METER 322 mg/dL 70-110 H Will Repea t Test/TESTED (BEAKER) (test code = [facility] [address] [facility] 1538) [place] [address] URINALYSIS W/ [id number] 15:33:00 Test Item Value Reference Range Interpretation Comments COLOR (BEAKER) (test code = Light Yellow 470) CLARITY (BEAKER) (test code = Clear 469) SPECIFIC GRAVITY UA (BEAKER) 1.022 1.001-1.035 (test code = 468) PH UA (BEAKER) (test code = 7.0 5.0-8.0 467) PROTEIN UA (BEAKER) (test code Negative Negative = 464) GLUCOSE UA (BEAKER) (test code >1000 mg/dL Negative A = 365) KETONES UA (BEAKER) (test code Negative Negative = 371) BILIRUBIN UA (BEAKER) (test Negative Negative code = 462) BLOOD UA (BEAKER) (test code = Negative Negative 461) NITRITE UA (BEAKER) (test code Negative Negative = 465) LEUKOCYTE ESTERASE UA (BEAKER) Negative Negative (test code = 466) UROBILINOGEN UA (BEAKER) (test 0.2 mg/dL 0.2-1.0 code = 463) RBC UA (BEAKER) (test code = 1 /HPF 519) WBC UA (BEAKER) (test code = < /HPF 520) BACTERIA (BEAKER) (test code = Rare 517) SQUAMOUS EPITHELIAL (BEAKER) 1 /HPF (test code = 516) SOURCE(BEAKER) (test code = Urine, Voided 2424) POCT-GLUCOSE [id number] 13:21:00 Test Item Value Reference Range Interpretation Comments POC-GLUCOSE METER 492 mg/dL 70-110 HH Will Repea t Test/TESTED (BEAKER) (test code = AT [facility] [address] 15[address]) [facility] [address] POCT-GLUCOSE [id number] 13:15:00 Test Item Value Reference Range Interpretation Comments POC-GLUCOSE METER > mg/dL 70-110 HH OUTSIDE ME ASURING (BEAKER) (test code = RANGEW ill Repeat 1538) Test/TESTED AT [address] [address] HEMOGLOBIN [id number] 08:57:00 Test Item Value Reference Range Interpretation Comments HEMOGLOBIN A1C (BEAKER) (test code = 13.8 % 4.3-6.1 H 368) HEMOGLOBIN [id number] 08:57:00 Test Item Value Reference Range Interpretation Comments HEMOGLOBIN A1C (BEAKER) (test code = 13.7 % 4.3-6.1 H 368) POCT-GLUCOSE [id number] 07:57:00 Test Item Value Reference Range Interpretation Comments POC-GLUCOSE METER 471 mg/dL 70-110 HH Will Repea t Test/TESTED (BEAKER) (test code = AT [facility] [address] [facility] 1533) [facility] [address] COMPREHENSIVE METABOLIC [id number] 03:12:00 Test Item Value Reference Range Interpretation Comments TOTAL PROTEIN 7.4 gm/dL 6.0-8.3 (BEAKER) (test code = 770) ALBUMIN (BEAKER) 3.0 g/dL 3.5-5.0 L (test code = 1145) ALKALINE PHOSPHATASE 119 U/L 40-150 (BEAKER) (test code = 346) BILIRUBIN TOTAL < mg/dL 0.2-1.2 (BEAKER) (test code = 377) SODIUM (BEAKER) (test 135 meq/L 136-145 L code = 381) POTASSIUM (BEAKER) 4.4 meq/L 3.5-5.1 (test code = 379) CHLORIDE (BEAKER) 101 meq/L 98-107 (test code = 382) CO2 (BEAKER) (test 28 meq/L 22-29 code = 355) BLOOD UREA NITROGEN 8 mg/dL 7-21 (BEAKER) (test code = 354) CREATININE (BEAKER) 0.73 mg/dL 0.57-1.25 (test code = 358) GLUCOSE RANDOM 119 mg/dL 70-105 H (BEAKER) (test code = 652) CALCIUM (BEAKER) 9.0 mg/dL 8.4-10.2 (test code = 697) AST (SGOT) (BEAKER) 18 U/L 5-34 (test code = 353) ALT (SGPT) (BEAKER) 9 U/L 6-55 (test code = 347) EGFR (BEAKER) (test 118 ESTIMATE D GFR IS code = 1092) mL/min/1.73 sq NOT ACCURA TE m CREATININE CLEARANCE IN PREDICTING GLOMERULAR FILTRATION RATE . ESTIMATED GFR I S NOT APPLICABLE FOR DIALYSIS PATIEN TS. BUN AND [id number] 03:11:00 Test Item Value Reference Range Interpretation Comments BLOOD UREA NITROGEN 7 mg/dL 7-21 (BEAKER) (test code = 354) CREATININE (BEAKER) 0.72 mg/dL 0.57-1.25 (test code = 358) EGFR (BEAKER) (test 120 mL/min/1.73 ESTIM ATED GFR IS code = 1092) sq m NOT ACCURATE CREATININE CLEARANCE IN PREDICTING GLOMERULAR FILTRATION RATE . ESTIMATED GFR I S NOT APPLICABLE FOR DIALYSIS PATIEN TS. GAMMA GLUTAMYL TRANSFERASE (GGT)[id number] 03:11:00 Test Item Value Reference Range Interpretation Comments GAMMA GLUTAMYL TRANSFERASE (BEAKER) 19 U/L 9-64 (test code = 364) [id number] 03:10:00 Test Item Value Reference Range Interpretation Comments PHOSPHORUS (BEAKER) (test code = 3.6 mg/dL 2.3-4.7 604) [id number] 03:05:00 Test Item Value Reference Range Interpretation Comments MAGNESIUM (BEAKER) (test code = 1.6 mg/dL 1.6-2.6 627) CBC W/PLT COUNT & AUTO [id number] 02:46:00 Test Item Value Reference Range Interpretation Comments WHITE BLOOD CELL COUNT (BEAKER) 9.5 K/ L 3.5-10.5 (test code = 775) RED BLOOD CELL COUNT (BEAKER) 4.27 M/ L 3.93-5.22 (test code = 761) HEMOGLOBIN (BEAKER) (test code = 11.3 GM/DL 11.2-15.7 410) HEMATOCRIT (BEAKER) (test code = 36.4 % 34.1-44.9 411) MEAN CORPUSCULAR VOLUME (BEAKER) 85.2 fL 79.4-94.8 (test code = 753) MEAN CORPUSCULAR HEMOGLOBIN 26.5 pg 25.6-32.2 (BEAKER) (test code = 751) MEAN CORPUSCULAR HEMOGLOBIN CONC 31.0 GM/DL 32.2-35.5 L (BEAKER) (test code = 752) RED CELL DISTRIBUTION WIDTH 15.0 % 11.7-14.4 H (BEAKER) (test code = 412) PLATELET COUNT (BEAKER) (test 314 K/CU MM 150-450 code = 756) MEAN PLATELET VOLUME (BEAKER) 11.9 fL 9.4-12.3 (test code = 754) NUCLEATED RED BLOOD CELLS 0 /100 WBC 0-0 (BEAKER) (test code = 413) NEUTROPHILS RELATIVE PERCENT 88 % (BEAKER) (test code = 429) LYMPHOCYTES RELATIVE PERCENT 8 % (BEAKER) (test code = 430) MONOCYTES RELATIVE PERCENT 3 % (BEAKER) (test code = 431) EOSINOPHILS RELATIVE PERCENT 1 % (BEAKER) (test code = 432) BASOPHILS RELATIVE PERCENT 0 % (BEAKER) (test code = 437) NEUTROPHILS ABSOLUTE COUNT 8.37 K/ L 1.56-6.13 H (BEAKER) (test code = 670) LYMPHOCYTES ABSOLUTE COUNT 0.74 K/ L 1.18-3.74 L (BEAKER) (test code = 414) MONOCYTES ABSOLUTE COUNT (BEAKER) 0.29 K/ L 0.24-0.36 (test code = 415) EOSINOPHILS ABSOLUTE COUNT 0.07 K/ L 0.04-0.36 (BEAKER) (test code = 416) BASOPHILS ABSOLUTE COUNT (BEAKER) 0.02 K/ L 0.01-0.08 (test code = 417) IMMATURE GRANULOCYTES-RELATIVE 0 % 0-1 PERCENT (BEAKER) (test code = 2801) RAD, CHEST, 2 [id number] 22:13:00Reason for exam:->Cystic FibrosisShould this be performed at the bedside?->NoFINAL REPORT HISTORY : Cystic Fibrosis. Comparison: 09/24/2017 Comment: Two views of the chest, PA and lateral, were obtained. The cardiac silhouette is within normal limits. No pneumothorax or pleural effusion is seen. There is a right-sided Port-A-Cath in place. There is bronchiectasis with reticular nodular and patchy airspace disease bilaterally. The airspace disease has slightly increased in the midlungs bilaterally. The constellation of findings are suggestive of cystic fi brosis. Given the increased opacities bilaterally, however, superimposed pneumonitis cannot be excluded. Signed: Anil Nievesort Verified Date/Time: 11/29/2017 22:13:03 Reading Location: [facility] [id number] Consult Reading Room -GLUCOSE [id number] 21:13:00 Test Item Value Reference Range Interpretation Comments POC-GLUCOSE METER > mg/dL 70-110 HH OUTSIDE [place] ASURING (BEAKER) (test code RANGETES MAGDALENO AT [facility] 6720 = 1538) [place] [address] POCT-GLUCOSE [id number] 18:02:00 Test Item Value Reference Range Interpretation Comments POC-GLUCOSE METER 292 mg/dL 70-[address] [facility] [address] (BEAKER) (test code = [place] 1538) [id number] [id number] 08:10:00 Test Item Value Reference Range Interpretation Comments MAGNESIUM (BEAKER) (test code = 1.4 mg/dL 1.6-2.6 L 627) [id number] 08:10:00 Test Item Value Reference Range Interpretation Comments PHOSPHORUS (BEAKER) (test code = 3.3 mg/dL 2.3-4.7 604) BASIC METABOLIC [id number] 07:41:00 Test Item Value Reference Range Interpretation Comments SODIUM (BEAKER) 137 meq/L 136-145 (test code = 381) POTASSIUM (BEAKER) 3.1 meq/L 3.5-5.1 L (test code = 379) CHLORIDE (BEAKER) 103 meq/L 98-107 (test code = 382) CO2 (BEAKER) (test 26 meq/L 22-29 code = 355) BLOOD UREA NITROGEN 3 mg/dL 7-21 L (BEAKER) (test code = 354) CREATININE (BEAKER) 0.60 mg/dL 0.57-1.25 (test code = 358) GLUCOSE RANDOM 124 mg/dL 70-105 H (BEAKER) (test code = 652) CALCIUM (BEAKER) 9.4 mg/dL 8.4-10.2 (test code = 697) EGFR (BEAKER) (test 148 mL/min/1.73 ESTIM ATED GFR IS code = 1092) sq m NOT ACCURATE CREATININE CLEARANCE IN PREDICTING GLOMERULAR FILTRATION RATE . ESTIMATED GFR I S NOT APPLICABLE FOR DIALYSIS PATIEN TS. KETONE, [id number] 07:13:00 Test Item Value Reference Range Interpretation Comments KETONES, BLOOD (BEAKER) (test code 0.0 mmol/L <0.4 = 1103) BLOOD GAS, [id number] 07:10:00 Test Item Value Reference Range Interpretation Comments PH VENOUS (BEAKER) (test code = 7.42 7.32-7.42 701) PCO2 VENOUS (BEAKER) (test code = 47 mmHg 41-51 755) PO2 VENOUS (BEAKER) (test code = 57 mmHg 25-40 H 702) O2 SATURATION VENOUS (BEAKER) 90.2 % 40.0-70.0 H (test code = 703) HCO3 VENOUS (BEAKER) (test code = 30 mmol/L 21-29 H 705) BASE EXCESS VENOUS (BEAKER) (test 4.9 mmol/L -2.0-3.0 H code = 704) PATIENT TEMPERATURE (BEAKER) (test 37.0 C code = 1818) FIO2 (BEAKER) (test code = 1819) 21.0 % POCT-GLUCOSE [id number] 06:51:00 Test Item Value Reference Range Interpretation Comments POC-GLUCOSE METER 134 mg/dL 70-[address] [facility] 67[address] (BEAKER) (test code = [place] 1538) [address] BASIC METABOLIC [id number] 06:32:00 Test Item Value Reference Range Interpretation Comments SODIUM (BEAKER) 129 meq/L 136-145 L (test code = 381) POTASSIUM (BEAKER) 3.5 meq/L 3.5-5.1 (test code = 379) CHLORIDE (BEAKER) 97 meq/L 98-107 L (test code = 382) CO2 (BEAKER) (test 18 meq/L 22-29 L code = 355) BLOOD UREA NITROGEN 4 mg/dL 7-21 L (BEAKER) (test code = 354) CREATININE (BEAKER) 1.04 mg/dL 0.57-1.25 (test code = 358) GLUCOSE RANDOM 753 mg/dL 70-105 HH (BEAKER) (test code = 652) CALCIUM (BEAKER) 8.9 mg/dL 8.4-10.2 (test code = 697) EGFR (BEAKER) (test 78 mL/min/1.73 ESTIMA MAGDALENO GFR IS code = 1092) sq m NOT ACCURATE CREATININE CLEARANCE IN PREDICTING GLOMERULAR FILTRATION RATE . ESTIMATED GFR I S NOT APPLICABLE FOR DIALYSIS PATIEN TS. URINALYSIS W/ REFLEX URINE [id number] 06:19:00 Test Item Value Reference Range Interpretation Comments COLOR (BEAKER) (test code = 470) Colorless CLARITY (BEAKER) (test code = Clear 469) SPECIFIC GRAVITY UA (BEAKER) 1.009 1.001-1.035 (test code = 468) PH UA (BEAKER) (test code = 467) 6.0 5.0-8.0 PROTEIN UA (BEAKER) (test code = Negative Negative 464) GLUCOSE UA (BEAKER) (test code = >1000 mg/dL Negative A 365) KETONES UA (BEAKER) (test code = Negative Negative 371) BILIRUBIN UA (BEAKER) (test code Negative Negative = 462) BLOOD UA (BEAKER) (test code = Small Negative A 461) NITRITE UA (BEAKER) (test code = Negative Negative 465) LEUKOCYTE ESTERASE UA (BEAKER) Negative Negative (test code = 466) UROBILINOGEN UA (BEAKER) (test 0.2 mg/dL 0.2-1.0 code = 463) RBC UA (BEAKER) (test code = 519) < /HPF WBC UA (BEAKER) (test code = 520) 1 /HPF BACTERIA (BEAKER) (test code = Rare 517) SQUAMOUS EPITHELIAL (BEAKER) 4 /HPF (test code = 516) AMORPHOUS CRYSTALS (BEAKER) (test Rare code = 1584) SOURCE(BEAKER) (test code = 2795) SCREEN, [id number] 06:07:00 Test Item Value Reference Range Interpretation Comments TEST URINE (BEAKER) (test Negative code = 583) [id number] 05:41:00 Test Item Value Reference Range Interpretation Comments LIPASE (BEAKER) (test code = 749) < U/L 8-78 L HEPATIC FUNCTION [id number] 05:40:00 Test Item Value Reference Range Interpretation Comments TOTAL PROTEIN (BEAKER) (test code = 7.0 gm/dL 6.0-8.3 770) ALBUMIN (BEAKER) (test code = 1145) 2.8 g/dL 3.5-5.0 L BILIRUBIN TOTAL (BEAKER) (test code < mg/dL 0.2-1.2 = 377) BILIRUBIN DIRECT (BEAKER) (test 0.1 mg/dL 0.1-0.5 code = 706) ALKALINE PHOSPHATASE (BEAKER) (test 122 U/L 40-150 code = 346) AST (SGOT) (BEAKER) (test code = 9 U/L 5-34 353) ALT (SGPT) (BEAKER) (test code = 7 U/L 6-55 347) CBC W/PLT COUNT & AUTO [id number] 05:10:00 Test Item Value Reference Range Interpretation Comments WHITE BLOOD CELL COUNT (BEAKER) 5.9 K/ L 3.5-10.5 (test code = 775) RED BLOOD CELL COUNT (BEAKER) 4.44 M/ L 3.93-5.22 (test code = 761) HEMOGLOBIN (BEAKER) (test code = 11.8 GM/DL 11.2-15.7 410) HEMATOCRIT (BEAKER) (test code = 39.2 % 34.1-44.9 411) MEAN CORPUSCULAR VOLUME (BEAKER) 88.3 fL 79.4-94.8 (test code = 753) MEAN CORPUSCULAR HEMOGLOBIN 26.6 pg 25.6-32.2 (BEAKER) (test code = 751) MEAN CORPUSCULAR HEMOGLOBIN CONC 30.1 GM/DL 32.2-35.5 L (BEAKER) (test code = 752) RED CELL DISTRIBUTION WIDTH 14.9 % 11.7-14.4 H (BEAKER) (test code = 412) PLATELET COUNT (BEAKER) (test 294 K/CU MM 150-450 code = 756) MEAN PLATELET VOLUME (BEAKER) 11.9 fL 9.4-12.3 (test code = 754) NUCLEATED RED BLOOD CELLS 0 /100 WBC 0-0 (BEAKER) (test code = 413) NEUTROPHILS RELATIVE PERCENT 67 % (BEAKER) (test code = 429) LYMPHOCYTES RELATIVE PERCENT 26 % (BEAKER) (test code = 430) MONOCYTES RELATIVE PERCENT 5 % (BEAKER) (test code = 431) EOSINOPHILS RELATIVE PERCENT 2 % (BEAKER) (test code = 432) BASOPHILS RELATIVE PERCENT 0 % (BEAKER) (test code = 437) NEUTROPHILS ABSOLUTE COUNT 3.99 K/ L 1.56-6.13 (BEAKER) (test code = 670) LYMPHOCYTES ABSOLUTE COUNT 1.51 K/ L 1.18-3.74 (BEAKER) (test code = 414) MONOCYTES ABSOLUTE COUNT (BEAKER) 0.29 K/ L 0.24-0.36 (test code = 415) EOSINOPHILS ABSOLUTE COUNT 0.11 K/ L 0.04-0.36 ([facility]) (test code = 416) BASOPHILS ABSOLUTE COUNT ([facility]) 0.02 K/ L 0.01-0.08 (test code = 417) IMMATURE GRANULOCYTES-RELATIVE 0 % 0-1 PERCENT ([facility]) (test code = 2801) AFB CULTURE + [id number] 12:29:00 Test Item Value Reference Range Interpretation Comments CULTURE ([facility]) (test No acid-fast bacilli code = 1095) isolated in 42 days AFB SMEAR ([facility]) No acid fast bacilli (test code = 994) seen FUNGUS CULTURE + [id number] 09:42:00 Test Item Value Reference Range Interpretation Comments CULTURE ([facility]) A <1+ Clau (test code = dubliniensis 1095) FUNGUS SMEAR <1+ budding ([facility]) (test yeast code = 1406) See smear results.POCT-GLUCOSE [id number] 14:27:00 Test Item Value Reference Range Interpretation Comments POC-GLUCOSE METER 255 mg/dL 70-110 H TESTED AT [place] [address] ([facility]) (test code = PAUL Tanner [facility] 1538) [address] POCT-GLUCOSE [id number] 11:59:00 Test Item Value Reference Range Interpretation Comments POC-GLUCOSE METER 157 mg/dL 70-110 H TESTED AT [place] [address] ([facility]) (test code = PAUL Tanner [facility] 1538) [id number] POCT-GLUCOSE [id number] 08:51:00 Test Item Value Reference Range Interpretation Comments POC-GLUCOSE METER 57 mg/dL 70-110 L Notified Ciro Polanco MD/TESTED AT ([facility]) (test code = [address]) [facility] [address] 0 [id number] 05:55:00 Test Item Value Reference Range Interpretation Comments BLOOD UREA NITROGEN ([facility]) (test 18 mg/dL 7-21 code = 354) [id number] 05:55:00 Test Item Value Reference Range Interpretation Comments CREATININE ([facility]) 0.69 mg/dL 0.57-1.25 (test code = 358) EGFR ([facility]) (test 126 mL/min/1.73 ESTIM ATED GFR IS code = 1092) sq m NOT ACCURATE CREATININE CLEARANCE IN PREDICTING GLOMERULAR FILTRATION RATE . ESTIMATED GFR I S NOT APPLICABLE FOR DIALYSIS PATIEN TS. POCT-GLUCOSE [id number] 21:24:00 Test Item Value Reference Range Interpretation Comments POC-GLUCOSE METER 139 mg/dL 70-110 H TESTED AT [place] [address] ([facility]) (test code = PAUL [place] 1538) [address] POCT-GLUCOSE [id number] 17:18:00 Test Item Value Reference Range Interpretation Comments POC-GLUCOSE METER 148 mg/dL 70-110 H TESTED AT [place] [address] ([facility]) (test code = PAUL Tanner [place] 1538) [id number] POCT-GLUCOSE [id number] 12:36:00 Test Item Value Reference Range Interpretation Comments POC-GLUCOSE METER 104 mg/dL 70-110 TESTED AT [place] [address] ([facility]) (test code = PAUL [place]anner [place] 1538) [id number] CF RESPIRATORY [id number] 11:18:00 Test Item Value Reference Range Interpretation Comments CULTURE ([facility]) (test code = 1095) Amikacin (test code Susceptible 0-16 S = 1) , Resistant <0 or >16 Aztreonam (test Susceptible 0-8 S code = 32) , Resistant <0 or >8 Cefepime (test code Susceptible 0-8 S = 51) , Resistant <0 or >8 Ceftazidime (test Susceptible 0-8 S code = 27) , Resistant <0 or >8 Ciprofloxacin (test Susceptible 0-1 R code = 7) , Resistant <0 or >1 Doripenem (test Susceptible 0-2 S code = 100) , Resistant <0 or >2 Gentamicin (test Susceptible 0-4 S code = 18) , Resistant <0 or >4 Imipenem (test code Susceptible 0-2 R = 19) , Resistant <0 or >2 Levofloxacin (test Susceptible 0-2 R code = 22) , Resistant <0 or >2 Meropenem (test Susceptible 0-2 S code = 34) , Resistant <0 or >2 Piperacillin (test Susceptible 0-16 S code = 24) , Resistant <0 or >16 Piperacillin + Susceptible 0-16 S Tazobactam (test , Resistant <0 code = 29) or >16 Tobramycin (test Susceptible 0-4 S code = 25) , Resistant <0 or >4 CULTURE (BEAKER) PSEUDOMONAS A 4+ Pseudomo viki (test code = 1095) AERUGINOSA aeruginos a (MUCOID-PHENOTYPE ) Amikacin (test code Susceptible 0-16 R = 1) , Resistant <0 or >16 Aztreonam (test Susceptible 0-8 S code = 32) , Resistant <0 or >8 Cefepime (test code Susceptible 0-8 S = 51) , Resistant <0 or >8 Ceftazidime (test Susceptible 0-8 S code = 27) , Resistant <0 or >8 Ciprofloxacin (test Susceptible 0-1 S code = 7) , Resistant <0 or >1 Doripenem (test Susceptible 0-2 S code = 100) , Resistant <0 or >2 Gentamicin (test Susceptible 0-4 R code = 18) , Resistant <0 or >4 Imipenem (test code Susceptible 0-2 R = 19) , Resistant <0 or >2 Levofloxacin (test Susceptible 0-2 R code = 22) , Resistant <0 or >2 Meropenem (test Susceptible 0-2 S code = 34) , Resistant <0 or >2 Piperacillin (test Susceptible 0-16 S code = 24) , Resistant <0 or >16 Piperacillin + Susceptible 0-16 S Tazobactam (test , Resistant <0 code = 29) or >16 Tobramycin (test Susceptible 0-4 S code = 25) , Resistant <0 or >4 CULTURE (BEAKER) A 4+ Pseudomo viki (test code = 1095) aeruginos a (Mucoid-phenoty pe) CULTURE ([facility]) A 1+ Streptoc occus (test code = 1095) not group A beta hemolytic 4+ Normal respiratory derick presentPOCT-GLUCOSE [id number] 08:50:00 Test Item Value Reference Range Interpretation Comments POC-GLUCOSE METER 74 mg/dL 70-[address] [facility] 6720 ([facility]) (test code = [place] [id number] 1538) [id number] 06:55:00 Test Item Value Reference Range Interpretation Comments BLOOD UREA NITROGEN ([facility]) (test 25 mg/dL 7-21 H code = 354) [id number] 06:55:00 Test Item Value Reference Range Interpretation Comments CREATININE ([facility]) 0.77 mg/dL 0.57-1.25 (test code = 358) EGFR ([facility]) (test 111 mL/min/1.73 ESTIM ATED GFR IS code = 1092) sq m NOT ACCURATE CREATININE CLEARANCE IN PREDICTING GLOMERULAR FILTRATION RATE . ESTIMATED GFR I S NOT APPLICABLE FOR DIALYSIS PATIEN TS. POCT-GLUCOSE [id number] 21:23:00 Test Item Value Reference Range Interpretation Comments POC-GLUCOSE METER 226 mg/dL 70-110 H TESTED AT [place] [address] ([facility]) (test code = [facility] 1538) [address] POCT-GLUCOSE [id number] 17:48:00 Test Item Value Reference Range Interpretation Comments POC-GLUCOSE METER 207 mg/dL 70-110 H TESTED AT [place] [address] ([facility]) (test code = [facility] 1538) [address] POCT-GLUCOSE [id number] 13:40:00 Test Item Value Reference Range Interpretation Comments POC-GLUCOSE METER 63 mg/dL 70-110 L TESTED AT [place] [address] ([facility]) (test code = [facility] [address] 1538) POCT-GLUCOSE [id number] 12:57:00 Test Item Value Reference Range Interpretation Comments POC-GLUCOSE METER 42 mg/dL 70-110 L Notified Ciro Polanco MD/TESTED AT ([facility]) (test code = [address]) [facility] [address] POCT-GLUCOSE [id number] 08:52:00 Test Item Value Reference Range Interpretation Comments POC-GLUCOSE METER 191 mg/dL 70-110 H TESTED AT [place] [address] ([facility]) (test code = [facility] 1538) [address] [id number] 07:08:00 Test Item Value Reference Range Interpretation Comments BLOOD UREA NITROGEN ([facility]) (test 18 mg/dL 7-21 code = 354) [id number] 07:08:00 Test Item Value Reference Range Interpretation Comments CREATININE ([facility]) 0.75 mg/dL 0.57-1.25 (test code = 358) EGFR ([facility]) (test 114 mL/min/1.73 ESTIM ATED GFR IS code = 1092) sq m NOT ACCURATE CREATININE CLEARANCE IN PREDICTING GLOMERULAR FILTRATION RATE . ESTIMATED GFR I S NOT APPLICABLE FOR DIALYSIS PATIEN TS. POCT-GLUCOSE [id number] 21:41:00 Test Item Value Reference Range Interpretation Comments POC-GLUCOSE METER 361 mg/dL 70-110 H TESTED AT [place] [id number] ([facility]) (test code = PAUL Tanner [facility] 1538) [address] POCT-GLUCOSE [id number] 18:53:00 Test Item Value Reference Range Interpretation Comments POC-GLUCOSE METER 96 mg/dL 70-110 TESTED AT [place] [address] ([facility]) (test code = PAUL Tanner [facility] [address] 1538) POCT-GLUCOSE [id number] 18:18:00 Test Item Value Reference Range Interpretation Comments POC-GLUCOSE METER 68 mg/dL 70-110 L Notified Ciro Polanco MD/TESTED AT ([facility]) (test code = [place] [address]2468) [facility] 7703 0 POCT-GLUCOSE [id number] 13:46:00 Test Item Value Reference Range Interpretation Comments POC-GLUCOSE METER 142 mg/dL 70-110 H TESTED AT [place] [address] ([facility]) (test code = PAUL Tanner [facility] 1538) [address] POCT-GLUCOSE [id number] 12:51:00 Test Item Value Reference Range Interpretation Comments POC-GLUCOSE METER 49 mg/dL 70-110 L Notified Ciro Polanco MD/TESTED AT ([facility]) (test code = [place] 222468) [facility] 7703 0 POCT-GLUCOSE [id number] 08:07:00 Test Item Value Reference Range Interpretation Comments POC-GLUCOSE METER 144 mg/dL 70-110 H TESTED AT [place] [address] ([facility]) (test code = PAUL Tanner [place] [id number]) [address] [id number] 07:32:00 Test Item Value Reference Range Interpretation Comments BLOOD UREA NITROGEN ([facility]) (test 19 mg/dL 7-21 code = 354) [id number] 07:32:00 Test Item Value Reference Range Interpretation Comments CREATININE ([facility]) 0.73 mg/dL 0.57-1.25 (test code = 358) EGFR ([facility]) (test 118 mL/min/1.73 ESTIM ATED GFR IS code = 1092) sq m NOT ACCURATE CREATININE CLEARANCE IN PREDICTING GLOMERULAR FILTRATION RATE . ESTIMATED GFR I S NOT APPLICABLE FOR DIALYSIS PATIEN TS. POCT-GLUCOSE [id number] 21:59:00 Test Item Value Reference Range Interpretation Comments POC-GLUCOSE METER 211 mg/dL 70-[address] [facility] 6720 ([facility]) (test code = PAUL Tanner [place] 1538) [address] POCT-GLUCOSE [id number] 18:20:00 Test Item Value Reference Range Interpretation Comments POC-GLUCOSE METER 178 mg/dL 70-[address] [facility] 6720 ([facility]) (test code = [facility] Ciro [facility] 1538) [address] [id number] 15:05:00 Test Item Value Reference Range Interpretation Comments BLOOD UREA NITROGEN ([facility]) (test 15 mg/dL - code = 354) [id number] 15:05:00 Test Item Value Reference Range Interpretation Comments CREATININE ([facility]) 0.86 mg/dL 0.57-1.25 Specimen slightly (test code = 358) hemolyzed EGFR ([facility]) (test 97 mL/min/1.73 ESTIMA MAGDALENO GFR IS code = 1092) sq m NOT ACCURATE CREATININE CLEARANCE IN PREDICTING GLOMERULAR FILTRATION RATE . ESTIMATED GFR I S NOT APPLICABLE FOR DIALYSIS PATIEN TS. POCT-GLUCOSE [id number] 12:02:00 Test Item Value Reference Range Interpretation Comments POC-GLUCOSE METER 357 mg/dL 70-110 H TESTED AT [place] [address] ([facility]) (test code = [facility] Ciro [facility] 1538) [address] RAD, CHEST, 2 [id number] 10:11:00Reason for exam:->Cystic FibrosisShould this be performed [...] Castellanos Verified Date/Time: 09/24/2017 10:11:13 Reading Location: [facility] Reading Room POCT-GLUCOSE [id number] 08:09:00 Test Item Value Reference Range Interpretation Comments POC-GLUCOSE METER 331 mg/dL 70-110 H TESTED AT [place] [address] ([facility]) (test code = PAUL [place]anner [place] [address]) [address] POCT-GLUCOSE [id number] 21:28:00 Test Item Value Reference Range Interpretation Comments POC-GLUCOSE METER 473 mg/dL 70-110 HH TESTED AT [place] [address] ([facility]) (test code = PAUL [place] [address]) [address] POCT-GLUCOSE [id number] 18:31:00 Test Item Value Reference Range Interpretation Comments POC-GLUCOSE METER 444 mg/dL 70-110 HH TESTED AT [place] [address] ([facility]) (test code = PAUL [place] [address]) [address] HEMOGLOBIN [id number] 17:51:00 Test Item Value Reference Range Interpretation Comments HEMOGLOBIN A1C ([facility]) (test code = 13.7 % 4.3-6.1 H 368) POCT-GLUCOSE [id number] 17:16:00 Test Item Value Reference Range Interpretation Comments POC-GLUCOSE METER 496 mg/dL 70-110 HH Notified R Collin STAPLETON/TESTED ([facility]) (test code = AT [place] [address]) [place] [address] 0 SPIN/CONCENTRATION [id number] 12:37:00 Test Item Value Reference Range Interpretation Comments CONCENTRATION CHARGED ([facility]) (test Done code = 2657) POCT-GLUCOSE [id number] 12:28:00 Test Item Value Reference Range Interpretation Comments POC-GLUCOSE METER 492 mg/dL 70-110 HH Notified R N MD/TESTED ([facility]) (test code = AT [place] [address]) [place] [address] 0 [id number] 07:45:00 Test Item Value Reference Range Interpretation Comments BLOOD UREA NITROGEN (BEAKER) (test 10 mg/dL 7- code = 354) [id number] 07:45:00 Test Item Value Reference Range Interpretation Comments CREATININE ([facility]) 0.76 mg/dL 0.57-1.25 (test code = 358) EGFR (BEAKER) (test 112 mL/min/1.73 ESTIM ATED GFR IS code = 1092) sq m NOT ACCURATE CREATININE CLEARANCE IN PREDICTING GLOMERULAR FILTRATION RATE . ESTIMATED GFR I S NOT APPLICABLE FOR DIALYSIS PATIEN TS. POCT-GLUCOSE [id number] 07:00:00 Test Item Value Reference Range Interpretation Comments POC-GLUCOSE METER 361 mg/dL 70-[address] [facility] 6720 (BEAKER) (test code = [place] 1538) [address] [id number] 23:30:00 Test Item Value Reference Range Interpretation Comments PHOSPHORUS (BEAKER) (test code = 3.8 mg/dL 2.3-4.7 604) [id number] 23:30:00 Test Item Value Reference Range Interpretation Comments MAGNESIUM (BEAKER) (test code = 1.5 mg/dL 1.6-2.6 L 627) COMPREHENSIVE METABOLIC [id number] 23:30:00 Test Item Value Reference Range Interpretation Comments TOTAL PROTEIN 7.3 gm/dL 6.0-8.3 (BEAKER) (test code = 770) ALBUMIN (BEAKER) 3.0 g/dL 3.5-5.0 L (test code = 1145) ALKALINE PHOSPHATASE 136 U/L 40-150 (BEAKER) (test code = 346) BILIRUBIN TOTAL < mg/dL 0.2-1.2 (BEAKER) (test code = 377) SODIUM (BEAKER) (test 138 meq/L 136-145 code = 381) POTASSIUM (BEAKER) 4.5 meq/L 3.5-5.1 (test code = 379) CHLORIDE (BEAKER) 102 meq/L 98-107 (test code = 382) CO2 (BEAKER) (test 28 meq/L 22-29 code = 355) BLOOD UREA NITROGEN 8 mg/dL 7-21 (BEAKER) (test code = 354) CREATININE (BEAKER) 0.72 mg/dL 0.57-1.25 (test code = 358) GLUCOSE RANDOM 183 mg/dL 70-105 H (BEAKER) (test code = 652) CALCIUM (BEAKER) 9.0 mg/dL 8.4-10.2 (test code = 697) AST (SGOT) (BEAKER) 19 U/L 5-34 (test code = 353) ALT (SGPT) (BEAKER) 7 U/L 6-55 (test code = 347) EGFR (BEAKER) (test 120 ESTIMATE D GFR IS code = 1092) mL/min/1.73 sq NOT ACCURA TE m CREATININE CLEARANCE IN PREDICTING GLOMERULAR FILTRATION RATE . ESTIMATED GFR I S NOT APPLICABLE FOR DIALYSIS PATIEN TS. GAMMA GLUTAMYL TRANSFERASE (GGT)[id number] 23:30:00 Test Item Value Reference Range Interpretation Comments GAMMA GLUTAMYL TRANSFERASE (BEAKER) 20 U/L 9-64 (test code = 364) CBC W/PLT COUNT & AUTO [id number] 23:06:00 Test Item Value Reference Range Interpretation Comments WHITE BLOOD CELL COUNT (BEAKER) 6.3 K/ L 3.5-10.5 (test code = 775) RED BLOOD CELL COUNT (BEAKER) 4.23 M/ L 3.93-5.22 (test code = 761) HEMOGLOBIN (BEAKER) (test code = 10.9 GM/DL 11.2-15.7 L 410) HEMATOCRIT (BEAKER) (test code = 36.2 % 34.1-44.9 411) MEAN CORPUSCULAR VOLUME (BEAKER) 85.6 fL 79.4-94.8 (test code = 753) MEAN CORPUSCULAR HEMOGLOBIN 25.8 pg 25.6-32.2 (BEAKER) (test code = 751) MEAN CORPUSCULAR HEMOGLOBIN CONC 30.1 GM/DL 32.2-35.5 L (BEAKER) (test code = 752) RED CELL DISTRIBUTION WIDTH 14.9 % 11.7-14.4 H (BEAKER) (test code = 412) PLATELET COUNT (BEAKER) (test 390 K/CU MM 150-450 code = 756) MEAN PLATELET VOLUME (BEAKER) 11.9 fL 9.4-12.3 (test code = 754) NUCLEATED RED BLOOD CELLS 0 /100 WBC 0-0 (BEAKER) (test code = 413) NEUTROPHILS RELATIVE PERCENT 55 % (BEAKER) (test code = 429) LYMPHOCYTES RELATIVE PERCENT 24 % (BEAKER) (test code = 430) MONOCYTES RELATIVE PERCENT 12 % (BEAKER) (test code = 431) EOSINOPHILS RELATIVE PERCENT 7 % (BEAKER) (test code = 432) BASOPHILS RELATIVE PERCENT 1 % (BEAKER) (test code = 437) NEUTROPHILS ABSOLUTE COUNT 3.48 K/ L 1.56-6.13 (BEAKER) (test code = 670) LYMPHOCYTES ABSOLUTE COUNT 1.53 K/ L 1.18-3.74 (BEAKER) (test code = 414) MONOCYTES ABSOLUTE COUNT (BEAKER) 0.77 K/ L 0.24-0.36 H (test code = 415) EOSINOPHILS ABSOLUTE COUNT 0.46 K/ L 0.04-0.36 H (BEAKER) (test code = 416) BASOPHILS ABSOLUTE COUNT (BEAKER) 0.04 K/ L 0.01-0.08 (test code = 417) IMMATURE GRANULOCYTES-RELATIVE 0 % 0-1 PERCENT (BEAKER) (test code = 2801) POCT-GLUCOSE [id number] 21:16:00 Test Item Value Reference Range Interpretation Comments POC-GLUCOSE METER 168 mg/dL 70-110 H TESTED AT [place] [address] ([facility]) (test code = [place] 1538) [address] AFB CULTURE + [id number] 13:04:00 Test Item Value Reference Range Interpretation Comments CULTURE (BEAKER) (test No acid-fast bacilli code = 1095) isolated in 42 days AFB SMEAR ([facility]) No acid fast bacilli (test code = 994) seen FUNGUS CULTURE + [id number] 12:05:00 Test Item Value Reference Range Interpretation Comments CULTURE (BEAKER) A 2+ Clau (test code = 1095) lisa sis FUNGUS SMEAR No fungi seen (AKER) (test code = 1406) POCT-GLUCOSE [id number] 17:17:00 Test Item Value Reference Range Interpretation Comments POC-GLUCOSE METER 176 mg/dL 70-110 H TESTED AT [place] [id number] ([facility]) (test code = PAUL [place] 1538) [address] POCT-GLUCOSE [id number] 11:57:00 Test Item Value Reference Range Interpretation Comments POC-GLUCOSE METER 392 mg/dL 70-110 H Notified R Collin STAPLETON/TESTED ([facility]) (test code = AT [facility] [address] [address]38) [facility] 7[address] 0 POCT-GLUCOSE [id number] 08:53:00 Test Item Value Reference Range Interpretation Comments POC-GLUCOSE METER 226 mg/dL 70-[address] [facility] 6720 (BEAKER) (test code = PAUL [place] 1538) [address] POCT-GLUCOSE [id number] 08:53:00 Test Item Value Reference Range Interpretation Comments POC-GLUCOSE METER 67 mg/dL 70-[address] [facility] 6720 (BEAKER) (test code = PAUL Tanner [facility] [address] 1538) BUN AND [id number] 07:15:00 Test Item Value Reference Range Interpretation Comments BLOOD UREA NITROGEN 20 mg/dL 7-21 (BEAKER) (test code = 354) CREATININE (BEAKER) 0.64 mg/dL 0.57-1.25 (test code = 358) EGFR (BEAKER) (test 138 mL/min/1.73 ESTIM ATED GFR IS code = 1092) sq m NOT ACCURATE CREATININE CLEARANCE IN PREDICTING GLOMERULAR FILTRATION RATE . ESTIMATED GFR I S NOT APPLICABLE FOR DIALYSIS PATIEN TS. BASIC METABOLIC [id number] 07:15:00 Test Item Value Reference Range Interpretation Comments SODIUM (BEAKER) 139 meq/L 136-145 (test code = 381) POTASSIUM (BEAKER) 4.8 meq/L 3.5-5.1 (test code = 379) CHLORIDE (BEAKER) 103 meq/L 98-107 (test code = 382) CO2 (BEAKER) (test 28 meq/L 22-29 code = 355) BLOOD UREA NITROGEN 20 mg/dL 7-21 (BEAKER) (test code = 354) CREATININE (BEAKER) 0.64 mg/dL 0.57-1.25 (test code = 358) GLUCOSE RANDOM 82 mg/dL 70-105 (BEAKER) (test code = 652) CALCIUM (BEAKER) 9.0 mg/dL 8.4-10.2 (test code = 697) EGFR (BEAKER) (test 138 mL/min/1.73 ESTIM ATED GFR IS code = 1092) sq m NOT ACCURATE CREATININE CLEARANCE IN PREDICTING GLOMERULAR FILTRATION RATE . ESTIMATED GFR I S NOT APPLICABLE FOR DIALYSIS PATIEN TS. CF RESPIRATORY [id number] 03:54:00 Test Item Value Reference Interpretation Comments Range CULTURE (BEAKER) A 4+ Pseudomo viki (test code = 1095) aeruginos a CULTURE (BEAKER) PSEUDOMONAS A 4+ Pseudomo viki (test code = 1095) AERUGINOSA aeruginos amucoid colony typeof a third typeThis is an appended report . These organism results have be en appended to a previously sylwia l verified report . Amikacin (test code S = 1) Aztreonam (test S code = 32) Cefepime (test code S = 51) Ceftazidime (test S code = 27) Ciprofloxacin (test R code = 7) Doripenem (test R code = 100) Gentamicin (test R code = 18) Imipenem (test code R = 19) Levofloxacin (test R code = 22) Meropenem (test R code = 34) Piperacillin (test S code = 24) Piperacillin + S Tazobactam (test code = 29) Tobramycin (test S code = 25) CULTURE ([facility]) PSEUDOMONAS A 4+ Pseudomo viki (test code = 1095) AERUGINOSA aeruginos aof a second typemucoid colo [place] type Amikacin (test code S = 1) Aztreonam (test R code = 32) Cefepime (test code R = 51) Ceftazidime (test S code = 27) Ciprofloxacin (test R code = 7) Doripenem (test R code = 100) Gentamicin (test R code = 18) Imipenem (test code R = 19) Levofloxacin (test R code = 22) Meropenem (test R code = 34) Piperacillin (test R code = 24) Piperacillin + S Tazobactam (test code = 29) Tobramycin (test S code = 25) 4+ Normal respiratory derick presentPOCT-GLUCOSE [id number] 22:30:00 Test Item Value Reference Range Interpretation Comments POC-GLUCOSE METER 136 mg/dL 70-110 H TESTED AT [place] [address] ([facility]) (test code = [place] 1538) [address] POCT-GLUCOSE [id number] 17:29:00 Test Item Value Reference Range Interpretation Comments POC-GLUCOSE METER 148 mg/dL 70-110 H TESTED AT [place] [address] ([facility]) (test code = [place] 1538) [address] POCT-GLUCOSE [id number] 12:35:00 Test Item Value Reference Range Interpretation Comments POC-GLUCOSE METER 209 mg/dL 70-110 H TESTED AT [place] [address] (BEAKER) (test code = [facility] [place] 1538) [address] POCT-GLUCOSE [id number] 08:39:00 Test Item Value Reference Range Interpretation Comments POC-GLUCOSE METER 122 mg/dL 70-110 H TESTED AT [place] [address] (BEAKER) (test code = [facility] 1538) [address] BUN AND [id number] 07:26:00 Test Item Value Reference Range Interpretation Comments BLOOD UREA NITROGEN 21 mg/dL 7-21 (BEAKER) (test code = 354) CREATININE (BEAKER) 0.69 mg/dL 0.57-1.25 (test code = 358) EGFR (BEAKER) (test 127 mL/min/1.73 ESTIM ATED GFR IS code = 1092) sq m NOT ACCURATE CREATININE CLEARANCE IN PREDICTING GLOMERULAR FILTRATION RATE . ESTIMATED GFR I S NOT APPLICABLE FOR DIALYSIS PATIEN TS. BASIC METABOLIC [id number] 07:26:00 Test Item Value Reference Range Interpretation Comments SODIUM (BEAKER) 137 meq/L 136-145 (test code = 381) POTASSIUM (BEAKER) 4.6 meq/L 3.5-5.1 (test code = 379) CHLORIDE (BEAKER) 97 meq/L 98-107 L (test code = 382) CO2 (BEAKER) (test 30 meq/L 22-29 H code = 355) BLOOD UREA NITROGEN 21 mg/dL 7-21 (BEAKER) (test code = 354) CREATININE (BEAKER) 0.69 mg/dL 0.57-1.25 (test code = 358) GLUCOSE RANDOM 110 mg/dL 70-105 H (BEAKER) (test code = 652) CALCIUM (BEAKER) 9.1 mg/dL 8.4-10.2 (test code = 697) EGFR (BEAKER) (test 127 mL/min/1.73 ESTIM ATED GFR IS code = 1092) sq m NOT ACCURATE CREATININE CLEARANCE IN PREDICTING GLOMERULAR FILTRATION RATE . ESTIMATED GFR I S NOT APPLICABLE FOR DIALYSIS PATIEN TS. POCT-GLUCOSE [id number] 21:03:00 Test Item Value Reference Range Interpretation Comments POC-GLUCOSE METER 265 mg/dL 70-110 H TESTED AT [place] [address] (BEAKER) (test code = [facility] 1538) [address] POCT-GLUCOSE [id number] 17:18:00 Test Item Value Reference Range Interpretation Comments POC-GLUCOSE METER 164 mg/dL 70-[address] [facility] 67 ([facility]) (test code = PAUL Tanner [facility] 1538) [address] POCT-GLUCOSE [id number] 13:11:00 Test Item Value Reference Range Interpretation Comments POC-GLUCOSE METER 101 mg/dL 70-110 TESTED AT [place] [address] ([facility]) (test code = [facility] Ciro [facility] 1538) [address] POCT-GLUCOSE [id number] 10:02:00 Test Item Value Reference Range Interpretation Comments POC-GLUCOSE METER 104 mg/dL 70-110 TESTED AT [place] [address] ([facility]) (test code = [facility] Ciro [facility] 1538) [address] BASIC METABOLIC [id number] 08:46:00 Test Item Value Reference Range Interpretation Comments SODIUM (BEAKER) 138 meq/L 136-145 (test code = 381) POTASSIUM (BEAKER) 4.1 meq/L 3.5-5.1 (test code = 379) CHLORIDE (BEAKER) 102 meq/L 98-107 (test code = 382) CO2 (BEAKER) (test 27 meq/L 22-29 code = 355) BLOOD UREA NITROGEN 15 mg/dL 7-21 (BEAKER) (test code = 354) CREATININE (BEAKER) 0.62 mg/dL 0.57-1.25 (test code = 358) GLUCOSE RANDOM 66 mg/dL 70-105 L (BEAKER) (test code = 652) CALCIUM (BEAKER) 8.9 mg/dL 8.4-10.2 (test code = 697) EGFR (BEAKER) (test 143 mL/min/1.73 ESTIM ATED GFR IS code = 1092) sq m NOT ACCURATE CREATININE CLEARANCE IN PREDICTING GLOMERULAR FILTRATION RATE . ESTIMATED GFR I S NOT APPLICABLE FOR DIALYSIS PATIEN TS. BUN AND [id number] 05:18:00 Test Item Value Reference Range Interpretation Comments BLOOD UREA NITROGEN 17 mg/dL 7-21 (BEAKER) (test code = 354) CREATININE (BEAKER) 0.70 mg/dL 0.57-1.25 (test code = 358) EGFR (BEAKER) (test 125 mL/min/1.73 ESTIM ATED GFR IS code = 1092) sq m NOT ACCURATE CREATININE CLEARANCE IN PREDICTING GLOMERULAR FILTRATION RATE . ESTIMATED GFR I S NOT APPLICABLE FOR DIALYSIS PATIEN TS. POCT-GLUCOSE [id number] 21:17:00 Test Item Value Reference Range Interpretation Comments POC-GLUCOSE METER 399 mg/dL 70-110 H Notified R Collin STAPLETON/TESTED ([facility]) (test code = AT [address] 1538) [facility] [address] 0 POCT-GLUCOSE [id number] 17:37:00 Test Item Value Reference Range Interpretation Comments POC-GLUCOSE METER 416 mg/dL 70-110 HH TESTED AT [place] [address] ([facility]) (test code = PAUL Ciro [facility] 1538) [address] POCT-GLUCOSE [id number] 12:45:00 Test Item Value Reference Range Interpretation Comments POC-GLUCOSE METER 291 mg/dL 70-110 H TESTED AT [place] [address] ([facility]) (test code = PAUL Tanner [facility] 1538) [address] POCT-GLUCOSE [id number] 07:12:00 Test Item Value Reference Range Interpretation Comments POC-GLUCOSE METER 237 mg/dL 70-110 H TESTED AT [place] [address] ([facility]) (test code = PAUL [place]iro [place] [address]) [address] BUN AND [id number] 04:32:00 Test Item Value Reference Range Interpretation Comments BLOOD UREA NITROGEN 15 mg/dL 7-21 ([facility]) (test code = 354) CREATININE ([facility]) 0.63 mg/dL 0.57-1.25 (test code = 358) EGFR ([facility]) (test 141 mL/min/1.73 ESTIM ATED GFR IS code = 1092) sq m NOT ACCURATE CREATININE CLEARANCE IN PREDICTING GLOMERULAR FILTRATION RATE . ESTIMATED GFR I S NOT APPLICABLE FOR DIALYSIS PATIEN TS. POCT-GLUCOSE [id number] 21:34:00 Test Item Value Reference Range Interpretation Comments POC-GLUCOSE METER 321 mg/dL 70-110 H Notified R Collin STAPLETON/TESTED ([facility]) (test code = AT [address] 1538) [facility] [address]703 0 POCT-GLUCOSE [id number] 17:53:00 Test Item Value Reference Range Interpretation Comments POC-GLUCOSE METER 392 mg/dL 70-110 H TESTED AT [place] [address] ([facility]) (test code = [facility] Ciro [facility] 1538) [address] POCT-GLUCOSE [id number] 12:39:00 Test Item Value Reference Range Interpretation Comments POC-GLUCOSE METER 306 mg/dL 70-110 H TESTED AT [place] [address] ([facility]) (test code = [facility] Ciro [facility] 1538) [address] POCT-GLUCOSE [id number] 08:24:00 Test Item Value Reference Range Interpretation Comments POC-GLUCOSE METER 304 mg/dL 70-110 H TESTED AT [place] [address] ([facility]) (test code = [facility] 1538) [address] BUN AND [id number] 05:48:00 Test Item Value Reference Range Interpretation Comments BLOOD UREA NITROGEN 19 mg/dL - ([facility]) (test code = 354) CREATININE ([facility]) 0.91 mg/dL 0.57-1.25 (test code = 358) EGFR ([facility]) (test 92 mL/min/1.73 ESTIMA MAGDALENO GFR IS code = 1092) sq m NOT ACCURATE CREATININE CLEARANCE IN PREDICTING GLOMERULAR FILTRATION RATE . ESTIMATED GFR I S NOT APPLICABLE FOR DIALYSIS PATIEN TS. POCT-GLUCOSE [id number] 21:41:00 Test Item Value Reference Range Interpretation Comments POC-GLUCOSE METER 221 mg/dL 70-110 H TESTED AT [place] [address] ([facility]) (test code = [facility] 1538) [address] POCT-GLUCOSE [id number] 17:13:00 Test Item Value Reference Range Interpretation Comments POC-GLUCOSE METER 321 mg/dL 70-110 H Notified R Collin or ([facility]) (test code = Patien t refused repeat 153) test/TESTED AT [address] [address] BUN AND [id number] 16:20:00 Test Item Value Reference Range Interpretation Comments BLOOD UREA NITROGEN 10 mg/dL - ([facility]) (test code = 354) CREATININE ([facility]) 0.60 mg/dL 0.57-1.25 (test code = 358) EGFR ([facility]) (test 149 mL/min/1.73 ESTIM ATED GFR IS code = 1092) sq m NOT ACCURATE CREATININE CLEARANCE IN PREDICTING GLOMERULAR FILTRATION RATE . ESTIMATED GFR I S NOT APPLICABLE FOR DIALYSIS PATIEN TS. POCT-GLUCOSE [id number] 11:55:00 Test Item Value Reference Range Interpretation Comments POC-GLUCOSE METER 200 mg/dL 70-110 H TESTED AT [place] [address] ([facility]) (test code = PAUL Tanner [facility] 1538) [address] POCT-GLUCOSE [id number] 08:16:00 Test Item Value Reference Range Interpretation Comments POC-GLUCOSE METER 419 mg/dL 70-110 HH TESTED AT [place] [address] ([facility]) (test code = PAUL Tanner [facility] 1538) [address] POCT-GLUCOSE [id number] 21:09:00 Test Item Value Reference Range Interpretation Comments POC-GLUCOSE METER 376 mg/dL 70-110 H TESTED AT [place] [address] ([facility]) (test code = [facility] Ciro [facility] 1538) [address] POCT-GLUCOSE [id number] 17:27:00 Test Item Value Reference Range Interpretation Comments POC-GLUCOSE METER 267 mg/dL 70-110 H TESTED AT [place] [address] ([facility]) (test code = [facility] 1538) [id number] POCT-GLUCOSE [id number] 13:54:00 Test Item Value Reference Range Interpretation Comments POC-GLUCOSE METER 197 mg/dL 70-110 H TESTED AT [place] [address] ([facility]) (test code = [facility] 1538) [address] POCT-GLUCOSE [id number] 12:34:00 Test Item Value Reference Range Interpretation Comments POC-GLUCOSE METER > mg/dL 70-110 HH OUTSIDE ME ASURING ([facility]) (test code RANGETES MAGDALENO AT [place] [address] = 1538) [facility] [id number] POCT-GLUCOSE [id number] 08:15:00 Test Item Value Reference Range Interpretation Comments POC-GLUCOSE METER 387 mg/dL 70-110 H Notified R Collin [place]/TESTED ([facility]) (test code = AT [place] [address]) [facility] [id number] 0 BASIC METABOLIC [id number] 05:17:00 Test Item Value Reference Range Interpretation Comments SODIUM ([facility]) 136 meq/L 136-145 (test code = 381) POTASSIUM ([facility]) 4.3 meq/L 3.5-5.1 (test code = 379) CHLORIDE (BEAKER) 101 meq/L 98-107 (test code = 382) CO2 (BEAKER) (test 24 meq/L 22-29 code = 355) BLOOD UREA NITROGEN 10 mg/dL 7-21 (BEAKER) (test code = 354) CREATININE (BEAKER) 0.73 mg/dL 0.57-1.25 (test code = 358) GLUCOSE RANDOM 273 mg/dL 70-105 H (BEAKER) (test code = 652) CALCIUM (BEAKER) 8.6 mg/dL 8.4-10.2 (test code = 697) EGFR (BEAKER) (test 119 mL/min/1.73 ESTIM ATED GFR IS code = 1092) sq m NOT ACCURATE CREATININE CLEARANCE IN PREDICTING GLOMERULAR FILTRATION RATE . ESTIMATED GFR I S NOT APPLICABLE FOR DIALYSIS PATIEN TS. SPIN/CONCENTRATION [id number] 05:13:00 Test Item Value Reference Range Interpretation Comments CONCENTRATION CHARGED (BEAKER) (test Done code = 2657) URINALYSIS W/ [id number] 01:00:00 Test Item Value Reference Range Interpretation Comments COLOR (BEAKER) (test code = Light Yellow 470) CLARITY (BEAKER) (test code = Clear 469) SPECIFIC GRAVITY UA (BEAKER) 1.028 1.001-1.035 (test code = 468) PH UA (BEAKER) (test code = 7.0 5.0-8.0 467) PROTEIN UA (BEAKER) (test code 20 mg/dL Negative A = 464) GLUCOSE UA (BEAKER) (test code >1000 mg/dL Negative A = 365) KETONES UA (BEAKER) (test code Negative Negative = 371) BILIRUBIN UA (BEAKER) (test Negative Negative code = 462) BLOOD UA (BEAKER) (test code = Negative Negative 461) NITRITE UA (BEAKER) (test code Negative Negative = 465) LEUKOCYTE ESTERASE UA (BEAKER) Negative Negative (test code = 466) UROBILINOGEN UA (BEAKER) (test 0.2 mg/dL 0.2-1.0 code = 463) RBC UA (BEAKER) (test code = 1 /HPF 519) WBC UA (BEAKER) (test code = < /HPF 520) SQUAMOUS EPITHELIAL (BEAKER) 1 /HPF (test code = 516) SOURCE(BEAKER) (test code = Urine, Voided 1536) SCREEN, [id number] 00:55:00 Test Item Value Reference Range Interpretation Comments TEST URINE (BEAKER) (test Negative code = 583) POCT-GLUCOSE [id number] 21:10:00 Test Item Value Reference Range Interpretation Comments POC-GLUCOSE METER 342 mg/dL 70-[address] [facility] 67 ([facility]) (test code = PAUL Tanner [place] 1538) [address] HEMOGLOBIN [id number] 19:26:00 Test Item Value Reference Range Interpretation Comments HEMOGLOBIN A1C (BEAKER) (test code = 15.4 % 4.3-6.1 H 368) POCT-GLUCOSE [id number] 19:20:00 Test Item Value Reference Range Interpretation Comments POC-GLUCOSE METER 470 mg/dL 70-110 HH TESTED AT [place] [address] ([facility]) (test code = PAUL Tanner [facility] 1538) [address] COMPREHENSIVE METABOLIC [id number] 19:10:00 Test Item Value Reference Range Interpretation Comments TOTAL PROTEIN 7.3 gm/dL 6.0-8.3 (BEAKER) (test code = 770) ALBUMIN (BEAKER) 3.2 g/dL 3.5-5.0 L (test code = 1145) ALKALINE PHOSPHATASE 129 U/L 40-150 (BEAKER) (test code = 346) BILIRUBIN TOTAL < mg/dL 0.2-1.2 (BEAKER) (test code = 377) SODIUM (BEAKER) (test 138 meq/L 136-145 code = 381) POTASSIUM (BEAKER) 4.4 meq/L 3.5-5.1 (test code = 379) CHLORIDE (BEAKER) 99 meq/L 98-107 (test code = 382) CO2 (BEAKER) (test 29 meq/L 22-29 code = 355) BLOOD UREA NITROGEN 6 mg/dL 7-21 L (BEAKER) (test code = 354) CREATININE (BEAKER) 0.81 mg/dL 0.57-1.25 (test code = 358) GLUCOSE RANDOM 515 mg/dL 70-105 HH (BEAKER) (test code = 652) CALCIUM (BEAKER) 9.1 mg/dL 8.4-10.2 (test code = 697) AST (SGOT) (BEAKER) 9 U/L 5-34 (test code = 353) ALT (SGPT) (BEAKER) 6 U/L 6-55 (test code = 347) EGFR (BEAKER) (test 105 ESTIMATE D GFR IS code = 1092) mL/min/1.73 sq NOT ACCURA TE m CREATININE CLEARANCE IN PREDICTING GLOMERULAR FILTRATION RATE . ESTIMATED GFR I S NOT APPLICABLE FOR DIALYSIS PATIEN TS. [id number] 19:07:00 Test Item Value Reference Range Interpretation Comments PHOSPHORUS (BEAKER) (test code = 3.4 mg/dL 2.3-4.7 604) [id number] 19:07:00 Test Item Value Reference Range Interpretation Comments MAGNESIUM (BEAKER) (test code = 1.5 mg/dL 1.6-2.6 L 627) GAMMA GLUTAMYL TRANSFERASE (GGT)[id number] 19:07:00 Test Item Value Reference Range Interpretation Comments GAMMA GLUTAMYL TRANSFERASE (BEAKER) 24 U/L 9-64 (test code = 364) CBC W/PLT COUNT & AUTO [id number] 18:40:00 Test Item Value Reference Range Interpretation Comments WHITE BLOOD CELL COUNT (BEAKER) 8.4 K/ L 3.5-10.5 (test code = 775) RED BLOOD CELL COUNT (BEAKER) 4.51 M/ L 3.93-5.22 (test code = 761) HEMOGLOBIN (BEAKER) (test code = 11.4 GM/DL 11.2-15.7 410) HEMATOCRIT (BEAKER) (test code = 37.0 % 34.1-44.9 411) MEAN CORPUSCULAR VOLUME (BEAKER) 82.0 fL 79.4-94.8 (test code = 753) MEAN CORPUSCULAR HEMOGLOBIN 25.3 pg 25.6-32.2 L (BEAKER) (test code = 751) MEAN CORPUSCULAR HEMOGLOBIN CONC 30.8 GM/DL 32.2-35.5 L (BEAKER) (test code = 752) RED CELL DISTRIBUTION WIDTH 14.6 % 11.7-14.4 H (BEAKER) (test code = 412) PLATELET COUNT (BEAKER) (test 302 K/CU MM 150-450 code = 756) MEAN PLATELET VOLUME (BEAKER) 12.4 fL 9.4-12.3 H (test code = 754) NUCLEATED RED BLOOD CELLS 0 /100 WBC 0-0 (BEAKER) (test code = 413) NEUTROPHILS RELATIVE PERCENT 68 % (BEAKER) (test code = 429) LYMPHOCYTES RELATIVE PERCENT 20 % (BEAKER) (test code = 430) MONOCYTES RELATIVE PERCENT 8 % (BEAKER) (test code = 431) EOSINOPHILS RELATIVE PERCENT 3 % (BEAKER) (test code = 432) BASOPHILS RELATIVE PERCENT 0 % (BEAKER) (test code = 437) NEUTROPHILS ABSOLUTE COUNT 5.74 K/ L 1.56-6.13 (BEAKER) (test code = 670) LYMPHOCYTES ABSOLUTE COUNT 1.66 K/ L 1.18-3.74 (BEAKER) (test code = 414) MONOCYTES ABSOLUTE COUNT (BEAKER) 0.70 K/ L 0.24-0.36 H (test code = 415) EOSINOPHILS ABSOLUTE COUNT 0.28 K/ L 0.04-0.36 (BEAKER) (test code = 416) BASOPHILS ABSOLUTE COUNT (BEAKER) 0.03 K/ L 0.01-0.08 (test code = 417) IMMATURE GRANULOCYTES-RELATIVE 0 % 0-1 PERCENT (BEAKER) (test code = 2801) AFB CULTURE + [id number] 07:09:00 Test Item Value Reference Range Interpretation Comments CULTURE (BEAKER) (test No acid-fast bacilli code = 1095) isolated in 42 days AFB SMEAR (BEAKER) No acid fast bacilli (test code = 994) seen POCT-GLUCOSE [id number] 12:37:00 Test Item Value Reference Range Interpretation Comments POC-GLUCOSE METER 215 mg/dL 70-[address] [facility] 6720 ([facility]) (test code = [place] 1538) [address] POCT-GLUCOSE [id number] 08:48:00 Test Item Value Reference Range Interpretation Comments POC-GLUCOSE METER 264 mg/dL 70-[address] [facility] 6720 ([facility]) (test code = [place] 1538) [address] [id number] 06:25:00 Test Item Value Reference Range Interpretation Comments PHOSPHORUS (BEAKER) (test code = 4.3 mg/dL 2.3-4.7 604) [id number] 06:25:00 Test Item Value Reference Range Interpretation Comments MAGNESIUM (BEAKER) (test code = 1.8 mg/dL 1.6-2.6 627) BASIC METABOLIC [id number] 06:25:00 Test Item Value Reference Range Interpretation Comments SODIUM (BEAKER) 140 meq/L 136-145 (test code = 381) POTASSIUM (BEAKER) 4.5 meq/L 3.5-5.1 (test code = 379) CHLORIDE (BEAKER) 103 meq/L 98-107 (test code = 382) CO2 (BEAKER) (test 27 meq/L 22-29 code = 355) BLOOD UREA NITROGEN 18 mg/dL 7-21 (BEAKER) (test code = 354) CREATININE (BEAKER) 0.74 mg/dL 0.57-1.25 (test code = 358) GLUCOSE RANDOM 253 mg/dL 70-105 H (BEAKER) (test code = 652) CALCIUM (BEAKER) 8.0 mg/dL 8.4-10.2 L (test code = 697) EGFR (BEAKER) (test 117 mL/min/1.73 ESTIM ATED GFR IS code = 1092) sq m NOT ACCURATE CREATININE CLEARANCE IN PREDICTING GLOMERULAR FILTRATION RATE . ESTIMATED GFR I S NOT APPLICABLE FOR DIALYSIS PATIEN TS. CBC W/PLT COUNT & AUTO [id number] 06:01:00 Test Item Value Reference Range Interpretation Comments WHITE BLOOD CELL COUNT (BEAKER) 11.6 K/ L 4.0-10.0 H (test code = 775) RED BLOOD CELL COUNT (BEAKER) 3.80 M/ L 4.00-5.00 L (test code = 761) HEMOGLOBIN (BEAKER) (test code = 10.4 GM/DL 12.0-15.0 L 410) HEMATOCRIT (BEAKER) (test code = 33.1 % 36.0-45.0 L 411) MEAN CORPUSCULAR VOLUME (BEAKER) 87.1 fL 82.0-99.0 (test code = 753) MEAN CORPUSCULAR HEMOGLOBIN 27.4 pg 27.0-33.0 (BEAKER) (test code = 751) MEAN CORPUSCULAR HEMOGLOBIN CONC 31.4 GM/DL 32.0-36.0 L (BEAKER) (test code = 752) RED CELL DISTRIBUTION WIDTH 16.5 % 10.3-14.2 H (BEAKER) (test code = 412) PLATELET COUNT (BEAKER) (test 324 K/CU MM 150-430 code = 756) MEAN PLATELET VOLUME (BEAKER) 8.8 fL 6.5-10.5 (test code = 754) NUCLEATED RED BLOOD CELLS 0 /100 WBC 0-0 (BEAKER) (test code = 413) NEUTROPHILS RELATIVE PERCENT 63 % (BEAKER) (test code = 429) LYMPHOCYTES RELATIVE PERCENT 24 % (BEAKER) (test code = 430) MONOCYTES RELATIVE PERCENT 9 % (BEAKER) (test code = 431) EOSINOPHILS RELATIVE PERCENT 3 % (BEAKER) (test code = 432) BASOPHILS RELATIVE PERCENT 1 % (BEAKER) (test code = 437) NEUTROPHILS ABSOLUTE COUNT 7.31 K/ L 1.80-8.00 (BEAKER) (test code = 670) LYMPHOCYTES ABSOLUTE COUNT 2.77 K/ L 1.48-4.50 (BEAKER) (test code = 414) MONOCYTES ABSOLUTE COUNT (BEAKER) 1.03 K/ L 0.00-1.30 (test code = 415) EOSINOPHILS ABSOLUTE COUNT 0.39 K/ L 0.00-0.50 (BEAKER) (test code = 416) BASOPHILS ABSOLUTE COUNT (BEAKER) 0.07 K/ L 0.00-0.20 (test code = 417) 0.00CF RESPIRATORY [id number] 00:39:00 Test Item Value Reference Range Interpretation Comments CULTURE (BEAKER) PSEUDOMONAS A 4+ Pseudomo viki (test code = 1095) AERUGINOSA aeruginos a (MUCOID-PHENOTYP (Mucoid-phe notype E) )mucoid colony type Amikacin (test code = Susceptible 0-16 S 1) , Resistant <0 or >16 Ampicillin (test code = 26) Ampicillin + Sulbactam (test code = 6) Aztreonam (test code Susceptible 0-8 S = 32) , Resistant <0 or >8 Cefazolin (test code = 9) Cefepime (test code = Susceptible 0-8 S 51) , Resistant <0 or >8 Ceftazidime (test Susceptible 0-8 S code = 27) , Resistant <0 or >8 Ceftriaxone (test code = 52) Ciprofloxacin (test Susceptible 0-1 R code = 7) , Resistant <0 or >1 Doripenem (test code Susceptible 0-2 R = 100) , Resistant <0 or >2 Ertapenem (test code = 38) Gentamicin (test code Susceptible 0-4 S = 18) , Resistant <0 or >4 Imipenem (test code = Susceptible 0-2 R 19) , Resistant <0 or >2 Levofloxacin (test Susceptible 0-2 R code = 22) , Resistant <0 or >2 Meropenem (test code Susceptible 0-2 S = 34) , Resistant <0 or >2 Minocycline (test code = 35) Nitrofurantoin (test code = 23) Piperacillin (test Susceptible 0-16 R code = 24) , Resistant <0 or >16 Piperacillin + Susceptible 0-16 S Tazobactam (test code , Resistant <0 = 29) or >16 Tetracycline (test code = 2) Ticarcillin + Clavulanic Acid (test code = 80) Tigecycline (test code = 133) Tobramycin (test code Susceptible 0-4 S = 25) , Resistant <0 or >4 Trimethoprim + Sulfamethoxazole (test code = 47) CULTURE (BEAKER) PSEUDOMONAS A 4+ Pseudomo viki (test code = 1095) AERUGINOSA aeruginos aof a second type Amikacin (test code = Susceptible 0-16 S 1) , Resistant <0 or >16 Ampicillin (test code = 262) Ampicillin + Sulbactam (test code = 62) Aztreonam (test code Susceptible 0-8 S = 32) , Resistant <0 or >8 Cefazolin (test code = 92) Cefepime (test code = Susceptible 0-8 S 51) , Resistant <0 or >8 Ceftazidime (test Susceptible 0-8 S code = 27) , Resistant <0 or >8 Ceftriaxone (test code = 522) Ciprofloxacin (test Susceptible 0-1 R code = 7) , Resistant <0 or >1 Doripenem (test code Susceptible 0-2 R = 100) , Resistant <0 or >2 Ertapenem (test code = 382) Gentamicin (test code Susceptible 0-4 R = 18) , Resistant <0 or >4 Imipenem (test code = Susceptible 0-2 R 19) , Resistant <0 or >2 Levofloxacin (test Susceptible 0-2 R code = 22) , Resistant <0 or >2 Meropenem (test code Susceptible 0-2 S = 34) , Resistant <0 or >2 Minocycline (test code = 352) Nitrofurantoin (test code = 232) Piperacillin (test Susceptible 0-16 S code = 24) , Resistant <0 or >16 Piperacillin + Susceptible 0-16 S Tazobactam (test code , Resistant <0 = 29) or >16 Tetracycline (test code = 22) Ticarcillin + Clavulanic Acid (test code = 802) Tigecycline (test code = 1332) Tobramycin (test code Susceptible 0-4 S = 25) , Resistant <0 or >4 Trimethoprim + Sulfamethoxazole (test code = 472) 3+ Normal respiratory derick presentPOCT-GLUCOSE [id number] 21:38:00 Test Item Value Reference Range Interpretation Comments POC-GLUCOSE METER 221 mg/dL 70-110 H TESTED AT [place] [address] ([facility]) (test code = PAUL Tanner [facility] 1538) [address] POCT-GLUCOSE [id number] 17:55:00 Test Item Value Reference Range Interpretation Comments POC-GLUCOSE METER 146 mg/dL 70-110 H TESTED AT [place] [address] ([facility]) (test code = PAUL Tanner [facility] 1538) [address] POCT-GLUCOSE [id number] 12:18:00 Test Item Value Reference Range Interpretation Comments POC-GLUCOSE METER 249 mg/dL 70-110 H TESTED AT [place] [address] ([facility]) (test code = [facility] Ciro [facility] 1538) [address] CBC W/PLT COUNT & AUTO [id number] 11:26:00 Test Item Value Reference Range Interpretation Comments WHITE BLOOD CELL COUNT ([facility]) 11.6 K/ L 4.0-10.0 H (test code = 775) RED BLOOD CELL COUNT ([facility]) 3.75 M/ L 4.00-5.00 L (test code = 761) HEMOGLOBIN ([facility]) (test code = 10.4 GM/DL 12.0-15.0 L 410) HEMATOCRIT ([facility]) (test code = 32.6 % 36.0-45.0 L 411) MEAN CORPUSCULAR VOLUME ([facility]) 86.9 fL 82.0-99.0 (test code = 753) MEAN CORPUSCULAR HEMOGLOBIN 27.8 pg 27.0-33.0 (BEAKER) (test code = 751) MEAN CORPUSCULAR HEMOGLOBIN CONC 32.0 GM/DL 32.0-36.0 (BEAKER) (test code = 752) RED CELL DISTRIBUTION WIDTH 16.1 % 10.3-14.2 H (BEAKER) (test code = 412) PLATELET COUNT (BEAKER) (test 303 K/CU MM 150-430 code = 756) MEAN PLATELET VOLUME (BEAKER) 8.8 fL 6.5-10.5 (test code = 754) NUCLEATED RED BLOOD CELLS 0 /100 WBC 0-0 (BEAKER) (test code = 413) NEUTROPHILS RELATIVE PERCENT 71 % (BEAKER) (test code = 429) LYMPHOCYTES RELATIVE PERCENT 19 % (BEAKER) (test code = 430) MONOCYTES RELATIVE PERCENT 8 % (BEAKER) (test code = 431) EOSINOPHILS RELATIVE PERCENT 1 % (BEAKER) (test code = 432) BASOPHILS RELATIVE PERCENT 0 % (BEAKER) (test code = 437) NEUTROPHILS ABSOLUTE COUNT 8.28 K/ L 1.80-8.00 H (BEAKER) (test code = 670) LYMPHOCYTES ABSOLUTE COUNT 2.20 K/ L 1.48-4.50 (BEAKER) (test code = 414) MONOCYTES ABSOLUTE COUNT (BEAKER) 0.99 K/ L 0.00-1.30 (test code = 415) EOSINOPHILS ABSOLUTE COUNT 0.12 K/ L 0.00-0.50 (BEAKER) (test code = 416) BASOPHILS ABSOLUTE COUNT (BEAKER) 0.03 K/ L 0.00-0.20 (test code = 417) [id number] 11:23:00 Test Item Value Reference Range Interpretation Comments MAGNESIUM (BEAKER) (test code = 1.3 mg/dL 1.6-2.6 L 627) BASIC METABOLIC [id number] 11:23:00 Test Item Value Reference Range Interpretation Comments SODIUM (BEAKER) 139 meq/L 136-145 (test code = 381) POTASSIUM (BEAKER) 3.1 meq/L 3.5-5.1 L (test code = 379) CHLORIDE (BEAKER) 103 meq/L 98-107 (test code = 382) CO2 (BEAKER) (test 26 meq/L 22-29 code = 355) BLOOD UREA NITROGEN 17 mg/dL 7-21 (BEAKER) (test code = 354) CREATININE ([facility]) 0.69 mg/dL 0.57-1.25 (test code = 358) GLUCOSE RANDOM 222 mg/dL 70-105 H ([facility]) (test code = 652) CALCIUM ([facility]) 8.6 mg/dL 8.4-10.2 (test code = 697) EGFR ([facility]) (test 127 mL/min/1.73 ESTIM ATED GFR IS code = 1092) sq m NOT ACCURATE CREATININE CLEARANCE IN PREDICTING GLOMERULAR FILTRATION RATE . ESTIMATED GFR I S NOT APPLICABLE FOR DIALYSIS PATIEN TS. SCREEN, [id number] 11:22:00 Test Item Value Reference Range Interpretation Comments TEST URINE ([facility]) (test Negative code = 583) POCT-GLUCOSE [id number] 08:09:00 Test Item Value Reference Range Interpretation Comments POC-GLUCOSE METER 264 mg/dL 70-110 H TESTED AT [place] [address] ([facility]) (test code = PAUL Tanner [facility] 1538) [address] POCT-GLUCOSE [id number] 22:02:00 Test Item Value Reference Range Interpretation Comments POC-GLUCOSE METER 221 mg/dL 70-110 H TESTED AT [place] [address] ([facility]) (test code = PAUL Tanner [facility] 1538) [address] POCT-GLUCOSE [id number] 17:16:00 Test Item Value Reference Range Interpretation Comments POC-GLUCOSE METER 173 mg/dL 70-110 H TESTED AT [place] [address] ([facility]) (test code = PAUL Tanner [facility] 1538) [address] POCT-GLUCOSE [id number] 13:38:00 Test Item Value Reference Range Interpretation Comments POC-GLUCOSE METER 155 mg/dL 70-[address] [facility] 67 ([facility]) (test code = PAUL Tanner [facility] 1538) [address] POCT-GLUCOSE [id number] 09:15:00 Test Item Value Reference Range Interpretation Comments POC-GLUCOSE METER 258 mg/dL 70-110 H TESTED AT [place] [address] ([facility]) (test code = PAUL Tanner [facility] 1538) [address] CBC W/PLT COUNT & AUTO [id number] 06:38:00 Test Item Value Reference Range Interpretation Comments WHITE BLOOD CELL COUNT (BEAKER) 11.0 K/ L 4.0-10.0 H (test code = 775) RED BLOOD CELL COUNT (BEAKER) 3.81 M/ L 4.00-5.00 L (test code = 761) HEMOGLOBIN (BEAKER) (test code = 10.2 GM/DL 12.0-15.0 L 410) HEMATOCRIT (BEAKER) (test code = 33.4 % 36.0-45.0 L 411) MEAN CORPUSCULAR VOLUME (BEAKER) 87.8 fL 82.0-99.0 (test code = 753) MEAN CORPUSCULAR HEMOGLOBIN 26.8 pg 27.0-33.0 L (BEAKER) (test code = 751) MEAN CORPUSCULAR HEMOGLOBIN CONC 30.5 GM/DL 32.0-36.0 L (BEAKER) (test code = 752) RED CELL DISTRIBUTION WIDTH 14.8 % 10.3-14.2 H (BEAKER) (test code = 412) PLATELET COUNT (BEAKER) (test 277 K/CU MM 150-430 code = 756) MEAN PLATELET VOLUME (BEAKER) 8.8 fL 6.5-10.5 (test code = 754) NUCLEATED RED BLOOD CELLS 0 /100 WBC 0-0 (BEAKER) (test code = 413) NEUTROPHILS RELATIVE PERCENT 77 % (BEAKER) (test code = 429) LYMPHOCYTES RELATIVE PERCENT 15 % (BEAKER) (test code = 430) MONOCYTES RELATIVE PERCENT 8 % (BEAKER) (test code = 431) EOSINOPHILS RELATIVE PERCENT 0 % (BEAKER) (test code = 432) BASOPHILS RELATIVE PERCENT 0 % (BEAKER) (test code = 437) NEUTROPHILS ABSOLUTE COUNT 8.41 K/ L 1.80-8.00 H (BEAKER) (test code = 670) LYMPHOCYTES ABSOLUTE COUNT 1.60 K/ L 1.48-4.50 (BEAKER) (test code = 414) MONOCYTES ABSOLUTE COUNT (BEAKER) 0.87 K/ L 0.00-1.30 (test code = 415) EOSINOPHILS ABSOLUTE COUNT 0.03 K/ L 0.00-0.50 (BEAKER) (test code = 416) BASOPHILS ABSOLUTE COUNT (BEAKER) 0.04 K/ L 0.00-0.20 (test code = 417) [id number] 06:33:00 Test Item Value Reference Range Interpretation Comments MAGNESIUM (BEAKER) (test code = 1.3 mg/dL 1.6-2.6 L 627) BASIC METABOLIC [id number] 06:33:00 Test Item Value Reference Range Interpretation Comments SODIUM (BEAKER) 136 meq/L 136-145 (test code = 381) POTASSIUM (BEAKER) 3.3 meq/L 3.5-5.1 L (test code = 379) CHLORIDE (BEAKER) 102 meq/L 98-107 (test code = 382) CO2 (BEAKER) (test 25 meq/L 22-29 code = 355) BLOOD UREA NITROGEN 16 mg/dL 7-21 (BEAKER) (test code = 354) CREATININE (BEAKER) 0.69 mg/dL 0.57-1.25 (test code = 358) GLUCOSE RANDOM 222 mg/dL 70-105 H (BEAKER) (test code = 652) CALCIUM (BEAKER) 8.3 mg/dL 8.4-10.2 L (test code = 697) EGFR (BEAKER) (test 127 mL/min/1.73 ESTIM ATED GFR IS code = 1092) sq m NOT ACCURATE CREATININE CLEARANCE IN PREDICTING GLOMERULAR FILTRATION RATE . ESTIMATED GFR I S NOT APPLICABLE FOR DIALYSIS PATIEN TS. POCT-GLUCOSE [id number] 22:04:00 Test Item Value Reference Range Interpretation Comments POC-GLUCOSE METER 336 mg/dL 70-[address] [facility] 6720 ([facility]) (test code = PAUL Tanner [place] 1538) [address] POCT-GLUCOSE [id number] 17:40:00 Test Item Value Reference Range Interpretation Comments POC-GLUCOSE METER 281 mg/dL 70-[address] [facility] 6720 (BEAKER) [facility] [place] 1538[facility] [address] POCT-GLUCOSE [id number] 11:41:00 Test Item Value Reference Range Interpretation Comments POC-GLUCOSE METER 412 mg/dL 70-[address] [facility] 6720 (BEAKER) (test code = PAUL Tanner [place] 1538) [address] BASIC METABOLIC [id number] 09:00:00 Test Item Value Reference Range Interpretation Comments SODIUM (BEAKER) 133 meq/L 136-145 L (test code = 381) POTASSIUM (BEAKER) 3.9 meq/L 3.5-5.1 (test code = 379) CHLORIDE (BEAKER) 100 meq/L 98-107 (test code = 382) CO2 (BEAKER) (test 25 meq/L 22-29 code = 355) BLOOD UREA NITROGEN 16 mg/dL 7-21 (BEAKER) (test code = 354) CREATININE (BEAKER) 1.02 mg/dL 0.57-1.25 (test code = 358) GLUCOSE RANDOM 522 mg/dL 70-105 HH (BEAKER) (test code = 652) CALCIUM (BEAKER) 9.0 mg/dL 8.4-10.2 (test code = 697) EGFR (BEAKER) (test 81 mL/min/1.73 ESTIMA MAGDALENO GFR IS code = 1092) sq m NOT ACCURATE CREATININE CLEARANCE IN PREDICTING GLOMERULAR FILTRATION RATE . ESTIMATED GFR I S NOT APPLICABLE FOR DIALYSIS PATIEN TS. POCT-GLUCOSE [id number] 08:49:00 Test Item Value Reference Range Interpretation Comments POC-GLUCOSE METER 444 mg/dL 70-110 HH Notified R N MD/TESTED (BEAKER) (test code = AT [facility] 67[address] [facility] 1538) [place] [address] [id number] 08:44:00 Test Item Value Reference Range Interpretation Comments MAGNESIUM (BEAKER) (test code = 1.3 mg/dL 1.6-2.6 L 627) CBC W/PLT COUNT & AUTO [id number] 08:26:00 Test Item Value Reference Range Interpretation Comments WHITE BLOOD CELL COUNT (BEAKER) 9.4 K/ L 4.0-10.0 (test code = 775) RED BLOOD CELL COUNT (BEAKER) 3.89 M/ L 4.00-5.00 L (test code = 761) HEMOGLOBIN (BEAKER) (test code = 10.4 GM/DL 12.0-15.0 L 410) HEMATOCRIT (BEAKER) (test code = 34.5 % 36.0-45.0 L 411) MEAN CORPUSCULAR VOLUME (BEAKER) 88.6 fL 82.0-99.0 (test code = 753) MEAN CORPUSCULAR HEMOGLOBIN 26.7 pg 27.0-33.0 L (BEAKER) (test code = 751) MEAN CORPUSCULAR HEMOGLOBIN CONC 30.1 GM/DL 32.0-36.0 L (BEAKER) (test code = 752) RED CELL DISTRIBUTION WIDTH 14.6 % 10.3-14.2 H (BEAKER) (test code = 412) PLATELET COUNT (BEAKER) (test 274 K/CU MM 150-430 code = 756) MEAN PLATELET VOLUME (BEAKER) 8.7 fL 6.5-10.5 (test code = 754) NUCLEATED RED BLOOD CELLS 0 /100 WBC 0-0 (BEAKER) (test code = 413) NEUTROPHILS RELATIVE PERCENT 77 % (BEAKER) (test code = 429) LYMPHOCYTES RELATIVE PERCENT 15 % (BEAKER) (test code = 430) MONOCYTES RELATIVE PERCENT 9 % (BEAKER) (test code = 431) EOSINOPHILS RELATIVE PERCENT 0 % (BEAKER) (test code = 432) BASOPHILS RELATIVE PERCENT 0 % (BEAKER) (test code = 437) NEUTROPHILS ABSOLUTE COUNT 7.16 K/ L 1.80-8.00 (BEAKER) (test code = 670) LYMPHOCYTES ABSOLUTE COUNT 1.39 K/ L 1.48-4.50 L (BEAKER) (test code = 414) MONOCYTES ABSOLUTE COUNT (BEAKER) 0.81 K/ L 0.00-1.30 (test code = 415) EOSINOPHILS ABSOLUTE COUNT 0.01 K/ L 0.00-0.50 (BEAKER) (test code = 416) BASOPHILS ABSOLUTE COUNT (BEAKER) 0.00 K/ L 0.00-0.20 (test code = 417) 0.00POCT-GLUCOSE [id number] 21:23:00 Test Item Value Reference Range Interpretation Comments POC-GLUCOSE METER 176 mg/dL 70-110 H TESTED AT [place] [address] ([facility]) (test code = [place]UL [place] 1538) [id number] HEMOGLOBIN [id number] 21:21:00 Test Item Value Reference Range Interpretation Comments HEMOGLOBIN A1C (BEAKER) (test code = 12.1 % 4.3-6.1 H 368) POCT-GLUCOSE [id number] 18:03:00 Test Item Value Reference Range Interpretation Comments POC-GLUCOSE METER 270 mg/dL 70-[address] [facility] 67[address] ([facility]) (test code = [place] 1538) [address] POCT-GLUCOSE [id number] 11:22:00 Test Item Value Reference Range Interpretation Comments POC-GLUCOSE METER 347 mg/dL 70-110 H Notified Ciro Polanco MD/TESTED ([facility]) (test code = AT [place] [address] [address] [facility]8) [facility] [address] 0 POCT-GLUCOSE [id number] 08:31:00 Test Item Value Reference Range Interpretation Comments POC-GLUCOSE METER 280 mg/dL 70-110 H TESTED AT [place] [address] ([facility]) (test code = [place] [address]) [id number] POCT-GLUCOSE [id number] 06:03:00 Test Item Value Reference Range Interpretation Comments POC-GLUCOSE METER 277 mg/dL 70-110 H TESTED AT [place] [address] ([facility]) (test code = PAUL [place] [address]) [address] POCT-GLUCOSE [id number] 22:13:00 Test Item Value Reference Range Interpretation Comments POC-GLUCOSE METER 404 mg/dL 70-110 HH TESTED AT [place] [address] ([facility]) (test code = [place]UL [place] [address]) [address] POCT-GLUCOSE [id number] 17:49:00 Test Item Value Reference Range Interpretation Comments POC-GLUCOSE METER 485 mg/dL 70-110 HH Notified Ciro Polanco MD/[place] ([facility]) (test code = AT [place] [address]) [facility] 7[address] 0 POCT-GLUCOSE [id number] 11:49:00 Test Item Value Reference Range Interpretation Comments POC-GLUCOSE METER 142 mg/dL 70-110 H TESTED AT [place] [address] ([facility]) (test code = PAUL [place] [address]) [address] CBC W/PLT COUNT & AUTO [id number] 08:39:00 Test Item Value Reference Range Interpretation Comments WHITE BLOOD CELL COUNT ([facility]) 9.2 K/ L 4.0-10.0 (test code = 775) RED BLOOD CELL COUNT ([facility]) 4.24 M/ L 4.00-5.00 (test code = 761) HEMOGLOBIN ([facility]) (test code = 11.6 GM/DL 12.0-15.0 L 410) HEMATOCRIT ([facility]) (test code = 37.7 % 36.0-45.0 411) MEAN CORPUSCULAR VOLUME (BEAKER) 89.0 fL 82.0-99.0 (test code = 753) MEAN CORPUSCULAR HEMOGLOBIN 27.4 pg 27.0-33.0 (BEAKER) (test code = 751) MEAN CORPUSCULAR HEMOGLOBIN CONC 30.8 GM/DL 32.0-36.0 L (BEAKER) (test code = 752) RED CELL DISTRIBUTION WIDTH 14.3 % 10.3-14.2 H (BEAKER) (test code = 412) PLATELET COUNT (BEAKER) (test 345 K/CU MM 150-430 code = 756) MEAN PLATELET VOLUME (BEAKER) 9.3 fL 6.5-10.5 (test code = 754) NUCLEATED RED BLOOD CELLS 0 /100 WBC 0-0 (BEAKER) (test code = 413) NEUTROPHILS RELATIVE PERCENT 69 % (BEAKER) (test code = 429) LYMPHOCYTES RELATIVE PERCENT 22 % (BEAKER) (test code = 430) MONOCYTES RELATIVE PERCENT 7 % (BEAKER) (test code = 431) EOSINOPHILS RELATIVE PERCENT 3 % (BEAKER) (test code = 432) BASOPHILS RELATIVE PERCENT 0 % (BEAKER) (test code = 437) NEUTROPHILS ABSOLUTE COUNT 6.30 K/ L 1.80-8.00 (BEAKER) (test code = 670) LYMPHOCYTES ABSOLUTE COUNT 2.00 K/ L 1.48-4.50 (BEAKER) (test code = 414) MONOCYTES ABSOLUTE COUNT (BEAKER) 0.61 K/ L 0.00-1.30 (test code = 415) EOSINOPHILS ABSOLUTE COUNT 0.26 K/ L 0.00-0.50 (BEAKER) (test code = 416) BASOPHILS ABSOLUTE COUNT (BEAKER) 0.03 K/ L 0.00-0.20 (test code = 417) 0.00POCT-GLUCOSE [id number] 08:05:00 Test Item Value Reference Range Interpretation Comments POC-GLUCOSE METER 380 mg/dL 70-110 H Notified Ciro Polanco MD/TESTED (BEAKER) (test code = AT [facility] [address] [address]) [place] [address] COMPREHENSIVE METABOLIC [id number] 07:44:00 Test Item Value Reference Range Interpretation Comments TOTAL PROTEIN 7.1 gm/dL 6.0-8.3 (BEAKER) (test code = 770) ALBUMIN (BEAKER) 3.0 g/dL 3.5-5.0 L (test code = 1145) ALKALINE PHOSPHATASE 119 U/L 40-150 (BEAKER) (test code = 346) BILIRUBIN TOTAL 0.1 mg/dL 0.2-1.2 L (BEAKER) (test code = 377) SODIUM (BEAKER) (test 135 meq/L 136-145 L code = 381) POTASSIUM (BEAKER) 3.8 meq/L 3.5-5.1 (test code = 379) CHLORIDE (BEAKER) 99 meq/L 98-107 (test code = 382) CO2 (BEAKER) (test 27 meq/L 22-29 code = 355) BLOOD UREA NITROGEN 3 mg/dL 7-21 L (BEAKER) (test code = 354) CREATININE (BEAKER) 0.77 mg/dL 0.57-1.25 (test code = 358) GLUCOSE RANDOM 549 mg/dL 70-105 HH (BEAKER) (test code = 652) CALCIUM (BEAKER) 8.8 mg/dL 8.4-10.2 (test code = 697) AST (SGOT) (BEAKER) 14 U/L 5-34 (test code = 353) ALT (SGPT) (BEAKER) 10 U/L 6-55 (test code = 347) EGFR (BEAKER) (test 112 ESTIMATE D GFR IS code = 1092) mL/min/1.73 sq NOT ACCURA TE m CREATININE CLEARANCE IN PREDICTING GLOMERULAR FILTRATION RATE . ESTIMATED GFR I S NOT APPLICABLE FOR DIALYSIS PATIEN TS. [id number] 07:41:00 Test Item Value Reference Range Interpretation Comments FERRITIN (BEAKER) (test code = 361) 126 ng/mL 5-275 Effective 09/11/2014: Reference Range ChangeNew: Male 5-275 Previous: Male 22-322 Female 5-275 Female 10-291TSH/FREE T4 IF INDICATED 2017-04-29 07:41:00 Test Item Value Reference Range Interpretation Comments THYROID STIMULATING HORMONE 1.94 uIU/mL 0.35-4.94 (BEAKER) (test code = 772) [id number] 07:33:00 Test Item Value Reference Range Interpretation Comments MAGNESIUM (BEAKER) (test code = 1.3 mg/dL 1.6-2.6 L 627) LIPID [id number] 07:33:00 Test Item Value Reference Range Interpretation Comments TRIGLYCERIDES (BEAKER) (test code = 115 mg/dL 540) CHOLESTEROL (BEAKER) (test code = 135 mg/dL 631) HDL CHOLESTEROL (BEAKER) (test code 48 mg/dL = 976) LDL CHOLESTEROL CALCULATED (BEAKER) 64 mg/dL (test code = 633) Triglyceride Reference Range: Low Risk <150 Borderline 150-199 High Risk 200-499 Very High Risk >=500Cholesterol Reference Range: Low Risk <200 Borderline 200-239 High Risk >240HDL Cholesterol Reference Range: Low Risk >=60 High Risk <40LDL Cholesterol Reference Range: Optimal <100 Near Optimal 100-129 Borderline 130-159 High 160-189 Very High >=[id number] 07:33:00 Test Item Value Reference Range Interpretation Comments PREALBUMIN (BEAKER) (test code = 13 mg/dL 14-45 L 586) IRON, TIBC, % SAT. (WITHOUT FERRITIN)2017-04-29 07:33:00 Test Item Value Reference Range Interpretation Comments IRON (BEAKER) (test code = 547) 35 ug/dL 40-160 L TOTAL IRON BINDING CAPACITY 310 ug/dL 250-450 (BEAKER) (test code = 769) IRON % SATURATION (2) (BEAKER) 11 % 20-55 L (test code = 2590) [id number] 07:24:00 Test Item Value Reference Range Interpretation Comments PROTIME (BEAKER) (test code = 13.3 seconds 11.7-14.7 759) INR (BEAKER) (test code = 370) 1.0 <=5.9 PARTIAL THROMBOPLASTIN TIME 35.2 seconds 22.5-36.0 (BEAKER) (test code = 760) RECOMMENDED COUMADIN/WARFARIN INR THERAPY RANGESSTANDARD DOSE: 2.0 - 3.0 Includes: PROPHYLAXIS forvenous thrombosis, systemic embolization; TREATMENT for venous thrombosis and/or pulmonary embolus.HIGH RISK: Target INR is 2.5-3.5 for patients with mechanical heart valves.POCT-GLUCOSE [id number] 21:48:00 Test Item Value Reference Range Interpretation Comments POC-GLUCOSE METER 289 mg/dL 70-[address] [facility] [address] ([employer] App) (test code = [place] 1538) [address] POCT-GLUCOSE [id number] 18:49:00 Test Item Value Reference Range Interpretation Comments POC-GLUCOSE METER 492 mg/dL 70-[address] [facility] 6720 ([employer] App) (test code = [place] 1538) [address] CF RESPIRATORY [id number] 06:58:00 Test Item Value Reference Range Interpretation Comments CULTURE [facility] (test PSEUDOMONAS A 1+ Ps eudomonas code = 1095) AERUGINOSA aeruginosa Amikacin (test code = Susceptible 0-16 S 1) , Resistant <0 or >16 Ampicillin (test code = 26) Ampicillin + Sulbactam (test code = 6) Aztreonam (test code = Susceptible 0-8 S 32) , Resistant <0 or >8 Cefazolin (test code = 9) Cefepime (test code = Susceptible 0-8 S 51) , Resistant <0 or >8 Ceftazidime (test code Susceptible 0-8 S = 27) , Resistant <0 or >8 Ceftriaxone (test code = 52) Ciprofloxacin (test Susceptible 0-1 S code = 7) , Resistant <0 or >1 Doripenem (test code = Susceptible 0-2 S 100) , Resistant <0 or >2 Ertapenem (test code = 38) Gentamicin (test code Susceptible 0-4 S = 18) , Resistant <0 or >4 Imipenem (test code = Susceptible 0-2 R 19) , Resistant <0 or >2 Levofloxacin (test Susceptible 0-2 R code = 22) , Resistant <0 or >2 Meropenem (test code = Susceptible 0-2 S 34) , Resistant <0 or >2 Minocycline (test code = 35) Nitrofurantoin (test code = 23) Piperacillin (test Susceptible 0-16 S code = 24) , Resistant <0 or >16 Piperacillin + Susceptible 0-16 S Tazobactam (test code , Resistant <0 = 29) or >16 Tetracycline (test code = 2) Ticarcillin + Clavulanic Acid (test code = 80) Tigecycline (test code = 133) Tobramycin (test code Susceptible 0-4 S = 25) , Resistant <0 or >4 Trimethoprim + Sulfamethoxazole (test code = 47) CULTURE (BEAKER) (test PSEUDOMONAS A 2+ Ps eudomonas code = 1095) AERUGINOSA aeruginosa (MUCOID-PHENOTYP (Mucoid-phe notyp E) e) Amikacin (test code = Susceptible 0-16 S 1) , Resistant <0 or >16 Ampicillin (test code = 262) Ampicillin + Sulbactam (test code = 62) Aztreonam (test code = Susceptible 0-8 S 32) , Resistant <0 or >8 Cefazolin (test code = 92) Cefepime (test code = Susceptible 0-8 R 51) , Resistant <0 or >8 Ceftazidime (test code Susceptible 0-8 S = 27) , Resistant <0 or >8 Ceftriaxone (test code = 522) Ciprofloxacin (test Susceptible 0-1 R code = 7) , Resistant <0 or >1 Doripenem (test code = Susceptible 0-2 R 100) , Resistant <0 or >2 Ertapenem (test code = 382) Gentamicin (test code Susceptible 0-4 R = 18) , Resistant <0 or >4 Imipenem (test code = R 19) Levofloxacin (test Susceptible 0-2 R code = 22) , Resistant <0 or >2 Meropenem (test code = R 34) Minocycline (test code = 352) Nitrofurantoin (test code = 232) Piperacillin (test Susceptible 0-16 R code = 24) , Resistant <0 or >16 Piperacillin + Tazobactam (test code = 29) Tetracycline (test code = 22) Ticarcillin + Clavulanic Acid (test code = 802) Tigecycline (test code = 1332) Tobramycin (test code Susceptible 0-4 S = 25) , Resistant <0 or >4 Trimethoprim + Sulfamethoxazole (test code = 472) 1+ Normal respiratory derick presentFUNGUS CULTURE + [id number] 11:05:00 Test Item Value Reference Range Interpretation Comments CULTURE (BEAKER) A 1+ Clau glabrata (test code = 1095) FUNGUS SMEAR No fungi seen (BEAKER) (test code = 1406) POCT-GLUCOSE [id number] 12:28:00 Test Item Value Reference Range Interpretation Comments POC-GLUCOSE METER 112 mg/dL 70-110 H TESTED AT [place] [address] ([facility]) (test code = PAUL Tanner [facility] 1538) [address] POCT-GLUCOSE [id number] 08:33:00 Test Item Value Reference Range Interpretation Comments POC-GLUCOSE METER 144 mg/dL 70-110 H TESTED AT [place] [address] ([facility]) (test code = PAUL Tanner [facility] 1538) [address] BUN AND [id number] 05:40:00 Test Item Value Reference Range Interpretation Comments BLOOD UREA NITROGEN 17 mg/dL 7-21 ([facility]) (test code = 354) CREATININE ([facility]) 0.60 mg/dL 0.57-1.25 (test code = 358) EGFR ([facility]) (test 149 mL/min/1.73 ESTIM ATED GFR IS code = 1092) sq m NOT ACCURATE CREATININE CLEARANCE IN PREDICTING GLOMERULAR FILTRATION RATE . ESTIMATED GFR I S NOT APPLICABLE FOR DIALYSIS PATIEN TS. POCT-GLUCOSE [id number] 21:09:00 Test Item Value Reference Range Interpretation Comments POC-GLUCOSE METER 154 mg/dL 70-110 H TESTED AT [place] [address] ([facility]) (test code = PAUL Tanner [facility] 1538) [address] POCT-GLUCOSE [id number] 17:37:00 Test Item Value Reference Range Interpretation Comments POC-GLUCOSE METER 176 mg/dL 70-110 H TESTED AT [place] [address] ([facility]) (test code = NAOMIOR Ciro [facility] 1538) [address] POCT-GLUCOSE [id number] 13:59:00 Test Item Value Reference Range Interpretation Comments POC-GLUCOSE METER 126 mg/dL 70-110 H TESTED AT [place] [address] ([facility]) (test code = PAUL Tanner [facility] 1538) [address] POCT-GLUCOSE [id number] 11:39:00 Test Item Value Reference Range Interpretation Comments POC-GLUCOSE METER 113 mg/dL 70-110 H TESTED AT [place] [address] ([facility]) (test code = [facility] Ciro [facility] 1538) [address] POCT-GLUCOSE [id number] 08:59:00 Test Item Value Reference Range Interpretation Comments POC-GLUCOSE METER 99 mg/dL 70-110 TESTED AT [place] [address] ([facility]) (test code = [facility] Ciro [facility] [address]) BUN AND [id number] 06:11:00 Test Item Value Reference Range Interpretation Comments BLOOD UREA NITROGEN 18 mg/dL 7-21 ([facility]) (test code = 354) CREATININE ([facility]) 0.65 mg/dL 0.57-1.25 (test code = 358) EGFR ([facility]) (test 136 mL/min/1.73 ESTIM ATED GFR IS code = 1092) sq m NOT ACCURATE CREATININE CLEARANCE IN PREDICTING GLOMERULAR FILTRATION RATE . ESTIMATED GFR I S NOT APPLICABLE FOR DIALYSIS PATIEN TS. POCT-GLUCOSE [id number] 21:43:00 Test Item Value Reference Range Interpretation Comments POC-GLUCOSE METER 110 mg/dL 70-110 TESTED AT [place] [address] ([facility]) (test code = PAUL Tanner [facility] 1538) [address] POCT-GLUCOSE [id number] 18:34:00 Test Item Value Reference Range Interpretation Comments POC-GLUCOSE METER 336 mg/dL 70-110 H TESTED AT [place] [address] ([facility]) (test code = PAUL Tanner [facility] 1538) [address] POCT-GLUCOSE [id number] 17:53:00 Test Item Value Reference Range Interpretation Comments POC-GLUCOSE METER 150 mg/dL 70-110 H TESTED AT [place] [address] ([facility]) (test code = PAUL Tanner [facility] 1538) [address] POCT-GLUCOSE [id number] 12:04:00 Test Item Value Reference Range Interpretation Comments POC-GLUCOSE METER 295 mg/dL 70-110 H TESTED AT [place] [address] ([facility]) (test code = PAUL Tanner [facility] 1538) [address] POCT-GLUCOSE [id number] 09:25:00 Test Item Value Reference Range Interpretation Comments POC-GLUCOSE METER 52 mg/dL 70-110 L Pérezied Ciro Polanco MD/TESTED AT ([facility]) (test code = [address] [address]) [facility] [address] BASIC METABOLIC [id number] 06:59:00 Test Item Value Reference Range Interpretation Comments SODIUM (BEAKER) 138 meq/L 136-145 (test code = 381) POTASSIUM (BEAKER) 3.6 meq/L 3.5-5.1 (test code = 379) CHLORIDE (BEAKER) 103 meq/L 98-107 (test code = 382) CO2 (BEAKER) (test 27 meq/L 22-29 code = 355) BLOOD UREA NITROGEN 23 mg/dL 7-21 H (BEAKER) (test code = 354) CREATININE (BEAKER) 0.69 mg/dL 0.57-1.25 (test code = 358) GLUCOSE RANDOM 59 mg/dL 70-105 L (BEAKER) (test code = 652) CALCIUM (BEAKER) 7.6 mg/dL 8.4-10.2 L (test code = 697) EGFR (BEAKER) (test 127 mL/min/1.73 ESTIM ATED GFR IS code = 1092) sq m NOT ACCURATE CREATININE CLEARANCE IN PREDICTING GLOMERULAR FILTRATION RATE . ESTIMATED GFR I S NOT APPLICABLE FOR DIALYSIS PATIEN TS. BLOOD [id number] 00:00:00 Test Item Value Reference Range Interpretation Comments CULTURE (BEAKER) (test No growth in 5 days code = 1095) BLOOD [id number] 00:00:00 Test Item Value Reference Range Interpretation Comments CULTURE (BEAKER) (test No growth in 5 days code = 1095) POCT-GLUCOSE [id number] 22:01:00 Test Item Value Reference Range Interpretation Comments POC-GLUCOSE METER 177 mg/dL 70-[address] [facility] 67[address] ([facility]) (test code = [facility] [place] 1538) [address] POCT-GLUCOSE [id number] 18:32:00 Test Item Value Reference Range Interpretation Comments POC-GLUCOSE METER 118 mg/dL 70-[address] [facility] 6720 ([facility]) (test code = [facility] [place] 1538) [address] POCT-GLUCOSE [id number] 17:29:00 Test Item Value Reference Range Interpretation Comments POC-GLUCOSE METER 69 mg/dL 70-[address] [facility] 67[address] ([facility]) (test code = [facility] [place] [address] 1538) POCT-GLUCOSE [id number] 14:12:00 Test Item Value Reference Range Interpretation Comments POC-GLUCOSE METER 141 mg/dL 70-[address] [facility] 67[address] ([facility]) (test code = [facility] [place] 1538) [address] POCT-GLUCOSE [id number] 10:01:00 Test Item Value Reference Range Interpretation Comments POC-GLUCOSE METER 220 mg/dL 70-110 H TESTED AT [place] [address] ([facility]) (test code = [facility] [place] 1538) [address] POCT-GLUCOSE [id number] 08:51:00 Test Item Value Reference Range Interpretation Comments POC-GLUCOSE METER 220 mg/dL 70-110 H TESTED AT [place] [address] ([facility]) (test code = [facility] [place] 1538) [address] POCT-GLUCOSE [id number] 21:45:00 Test Item Value Reference Range Interpretation Comments POC-GLUCOSE METER 306 mg/dL 70-110 H TESTED AT [place] [address] ([facility]) (test code = [facility] Ciro [facility] 1538) [address] POCT-GLUCOSE [id number] 20:06:00 Test Item Value Reference Range Interpretation Comments POC-GLUCOSE METER 392 mg/dL 70-110 H TESTED AT [place] [address] ([facility]) (test code = [facility] 1538) [address] POCT-GLUCOSE [id number] 15:28:00 Test Item Value Reference Range Interpretation Comments POC-GLUCOSE METER 403 mg/dL 70-110 HH Notified R N or ([facility]) (test code = Patidhaval cooney refused repeat 1538) test/TESTED AT [address] [address] [id number] 12:43:00 Test Item Value Reference Range Interpretation Comments BLOOD UREA NITROGEN ([facility]) (test 18 mg/dL 7- code = 354) [id number] 12:43:00 Test Item Value Reference Range Interpretation Comments CREATININE ([facility]) 0.84 mg/dL 0.57-1.25 (test code = 358) EGFR ([facility]) (test 101 mL/min/1.73 ESTIM ATED GFR IS code = 1092) sq m NOT ACCURATE CREATININE CLEARANCE IN PREDICTING GLOMERULAR FILTRATION RATE . ESTIMATED GFR I S NOT APPLICABLE FOR DIALYSIS ADELIA TS. POCT-GLUCOSE [id number] 12:25:00 Test Item Value Reference Range Interpretation Comments POC-GLUCOSE METER 382 mg/dL 70-110 H TESTED AT [place] [address] ([facility]) (test code = [facility] [place] 1538) [address] POCT-GLUCOSE [id number] 08:23:00 Test Item Value Reference Range Interpretation Comments POC-GLUCOSE METER 95 mg/dL 70-110 TESTED AT [place] [address] ([facility]) (test code = PAUL Tanner [facility] [address] 1538) POCT-GLUCOSE [id number] 22:45:00 Test Item Value Reference Range Interpretation Comments POC-GLUCOSE METER 153 mg/dL 70-110 H TESTED AT [place] [address] ([facility]) (test code = PAUL Tanner [facility] 1538) [address] POCT-GLUCOSE [id number] 17:40:00 Test Item Value Reference Range Interpretation Comments POC-GLUCOSE METER 316 mg/dL 70-110 H Notified R Collin or ([facility]) (test code = Adelia cooney refused repeat 1538) test/TESTED AT [address] [address] POCT-GLUCOSE [id number] 12:12:00 Test Item Value Reference Range Interpretation Comments POC-GLUCOSE METER 279 mg/dL 70-110 H TESTED AT [place] [address] ([facility]) (test code = [facility] Ciro [facility] 1538) [address] RESPIRATORY PANEL [id number] 11:36:00 Test Item Value Reference Range Interpretation Comments HUMAN METAPNEUMOVIRUS Not detected Not detected, (BEAKER) (test code = Inconclusive 2683) RHINOVIRUS (BEAKER) (test Not detected Not detected, code = 2684) Inconclusive INFLUENZA A (BEAKER) (test Not detected Not detected, code = 2685) Inconclusive INFLUENZA A SUBTYPE H1 Not detected Not detected, (BEAKER) (test code = Inconclusive 2686) INFLUENZA A SUBTYPE H3 Not detected Not detected, (BEAKER) (test code = Inconclusive 2687) INFLUENZA A SUBTYPE Not detected Not detected, H1-2009 (BEAKER) (test Inconclusive code = 3198) INFLUENZA B (BEAKER) (test Not detected Not detected, code = 2688) Inconclusive RESPIRATORY SYNCYTIAL Not detected Not detected, VIRUS (BEAKER) (test code Inconclusive = 3199) PARAINFLUENZA VIRUS 1 Not detected Not detected, (BEAKER) (test code = Inconclusive 2691) PARAINFLUENZA VIRUS 2 Not detected Not detected, (BEAKER) (test code = Inconclusive 2692) PARAINFLUENZA VIRUS 3 Not detected Not detected, (BEAKER) (test code = Inconclusive 2693) PARAINFLUENZA VIRUS 4 Not detected Not detected, ([facility]) (test code = Inconclusive 3200) ADENOVIRUS (BEAKER) (test Not detected Not detected, code = 5308) Inconclusive CORONAVIRUS 229E (BEAKER) Not detected Not detected, (test code = 3201) Inconclusive CORONAVIRUS HKU1 (BEAKER) Not detected Not detected, (test code = 3202) Inconclusive CORONAVIRUS NL63 (BEAKER) Not detected Not detected, (test code = 3203) Inconclusive CORONAVIRUS OC43 (BEAKER) Not detected Not detected, (test code = 3204) Inconclusive BORDETELLA PERTUSSIS Not detected Not detected, (BEAKER) (test code = Inconclusive 3205) CHLAMYDOPHILA PNEUMONIAE Not detected Not detected, (BEAKER) (test code = Inconclusive 3206) MYCOPLASMA PNEUMONIAE Not detected Not detected, (BEAKER) (test code = Inconclusive 3207) POCT-GLUCOSE [id number] 08:37:00 Test Item Value Reference Range Interpretation Comments POC-GLUCOSE METER 302 mg/dL 70-110 H Verify [facility] ([facility]) (test code = draw/T ESTED AT [place] [address]) [address] [facility] [address] [id number] 07:38:00 Test Item Value Reference Range Interpretation Comments BLOOD UREA NITROGEN ([facility]) (test 13 mg/dL 7-21 code = 354) [id number] 07:38:00 Test Item Value Reference Range Interpretation Comments CREATININE ([facility]) 0.83 mg/dL 0.57-1.25 (test code = 358) EGFR ([facility]) (test 102 mL/min/1.73 ESTIM ATED GFR IS code = 1092) sq m NOT ACCURATE CREATININE CLEARANCE IN PREDICTING GLOMERULAR FILTRATION RATE . ESTIMATED GFR I S NOT APPLICABLE FOR DIALYSIS PATIEN TS. POCT-GLUCOSE [id number] 23:25:00 Test Item Value Reference Range Interpretation Comments POC-GLUCOSE METER 376 mg/dL 70-110 H TESTED AT [place] [address] ([facility]) (test code = PAUL Tanner [place] [address]) [address] POCT-GLUCOSE [id number] 21:02:00 Test Item Value Reference Range Interpretation Comments POC-GLUCOSE METER 339 mg/dL 70-110 H Notified R Collin [place]/TESTED ([facility]) (test code = AT [facility] [address] [place] [address]) [facility] [address] SPIN/CONCENTRATION [id number] 16:49:00 Test Item Value Reference Range Interpretation Comments CONCENTRATION CHARGED ([facility]) (test Done code = 2657) URINE [id number] 14:16:00 Test Item Value Reference Range Interpretation Comments CULTURE ([facility]) (test code = See comment 1095) <10,000 col/mL YEAST>100,000 col/mL skin floraPOCT-GLUCOSE [id number] 12:23:00 Test Item Value Reference Range Interpretation Comments POC-GLUCOSE METER 259 mg/dL 70-110 H TESTED AT [place] [address] ([facility]) (test code = PAUL Tanner [facility] 1538) [address] [id number] 10:26:00 Test Item Value Reference Range Interpretation Comments CREATININE ([facility]) 0.77 mg/dL 0.57-1.25 (test code = 358) EGFR ([facility]) (test 112 mL/min/1.73 ESTIM ATED GFR IS code = 1092) sq m NOT ACCURATE CREATININE CLEARANCE IN PREDICTING GLOMERULAR FILTRATION RATE . ESTIMATED GFR I S NOT APPLICABLE FOR DIALYSIS PATIEN TS. [id number] 10:08:00 Test Item Value Reference Range Interpretation Comments BLOOD UREA NITROGEN ([facility]) (test 17 mg/dL 7-21 code = 354) POCT-GLUCOSE [id number] 09:04:00 Test Item Value Reference Range Interpretation Comments POC-GLUCOSE METER 173 mg/dL 70-110 H TESTED AT [place] [address] ([facility]) (test code = PAUL Tanner [facility] 1538) [address] POCT-GLUCOSE [id number] 21:10:00 Test Item Value Reference Range Interpretation Comments POC-GLUCOSE METER 151 mg/dL 70-110 H TESTED AT [place] [address] ([facility]) (test code = PAUL Tanner [facility] 1538) [address] SCREEN, [id number] 20:03:00 Test Item Value Reference Range Interpretation Comments TEST URINE ([facility]) (test Negative code = 583) POCT-GLUCOSE [id number] 17:01:00 Test Item Value Reference Range Interpretation Comments POC-GLUCOSE METER 252 mg/dL 70-110 H TESTED AT [place] [address] ([facility]) (test code = PAUL Tanner [facility] 1538) [id number] BASIC METABOLIC [id number] 16:19:00 Test Item Value Reference Range Interpretation Comments SODIUM (BEAKER) 138 meq/L 136-145 (test code = 381) POTASSIUM (BEAKER) 3.8 meq/L 3.5-5.1 (test code = 379) CHLORIDE (BEAKER) 105 meq/L 98-107 (test code = 382) CO2 (BEAKER) (test 21 meq/L 22-29 L code = 355) BLOOD UREA NITROGEN 9 mg/dL 7-21 (BEAKER) (test code = 354) CREATININE (BEAKER) 0.94 mg/dL 0.57-1.25 (test code = 358) GLUCOSE RANDOM 421 mg/dL 70-105 HH (BEAKER) (test code = 652) CALCIUM (BEAKER) 8.5 mg/dL 8.4-10.2 (test code = 697) EGFR (BEAKER) (test 89 mL/min/1.73 ESTIMA MAGDALENO GFR IS code = 1092) sq m NOT ACCURATE CREATININE CLEARANCE IN PREDICTING GLOMERULAR FILTRATION RATE . ESTIMATED GFR I S NOT APPLICABLE FOR DIALYSIS PATIEN TS. [id number] 16:15:00 Test Item Value Reference Range Interpretation Comments MAGNESIUM (BEAKER) (test code = 1.4 mg/dL 1.6-2.6 L 627) POCT-GLUCOSE [id number] 11:37:00 Test Item Value Reference Range Interpretation Comments POC-GLUCOSE METER > mg/dL 70-110 HH OUTSIDE ME ASURING (BEAKER) (test code RANGENot ified JORDON MD/TESTED = 1538) AT [place] [id number] [facility] 7703 0 HEMOGLOBIN [id number] 11:03:00 Test Item Value Reference Range Interpretation Comments HEMOGLOBIN A1C (BEAKER) (test code = 12.5 % 4.3-6.1 H 368) POCT-GLUCOSE [id number] 08:22:00 Test Item Value Reference Range Interpretation Comments POC-GLUCOSE METER 434 mg/dL 70-110 HH Notified Ciro Polanco MD/[place] (BEAKER) (test code = AT [facility] [address] [facility] 1538) [facility] 7703 0 COMPREHENSIVE METABOLIC [id number] 06:58:00 Test Item Value Reference Range Interpretation Comments TOTAL PROTEIN 7.7 gm/dL 6.0-8.3 (BEAKER) (test code = 770) ALBUMIN (BEAKER) 3.1 g/dL 3.5-5.0 L (test code = 1145) ALKALINE PHOSPHATASE 135 U/L 40-150 (BEAKER) (test code = 346) BILIRUBIN TOTAL 0.1 mg/dL 0.2-1.2 L (BEAKER) (test code = 377) SODIUM (BEAKER) (test 135 meq/L 136-145 L code = 381) POTASSIUM (BEAKER) 4.6 meq/L 3.5-5.1 (test code = 379) CHLORIDE (BEAKER) 100 meq/L 98-107 (test code = 382) CO2 (BEAKER) (test 24 meq/L 22-29 code = 355) BLOOD UREA NITROGEN 11 mg/dL 7-21 (BEAKER) (test code = 354) CREATININE (BEAKER) 0.94 mg/dL 0.57-1.25 (test code = 358) GLUCOSE RANDOM 533 mg/dL 70-105 HH (BEAKER) (test code = 652) CALCIUM (BEAKER) 8.4 mg/dL 8.4-10.2 (test code = 697) AST (SGOT) (BEAKER) 16 U/L 5-34 (test code = 353) ALT (SGPT) (BEAKER) 22 U/L 6-55 (test code = 347) EGFR (BEAKER) (test 89 mL/min/1.73 ESTIMA MAGDALENO GFR IS code = 1092) sq m NOT ACCURATE CREATININE CLEARANCE IN PREDICTING GLOMERULAR FILTRATION RATE . ESTIMATED GFR I S NOT APPLICABLE FOR DIALYSIS PATIEN TS. [id number] 06:43:00 Test Item Value Reference Range Interpretation Comments MAGNESIUM (BEAKER) (test code = 1.6 mg/dL 1.6-2.6 627) [id number] 06:30:00 Test Item Value Reference Range Interpretation Comments PHOSPHORUS (BEAKER) (test code = 2.9 mg/dL 2.3-4.7 604) GAMMA GLUTAMYL TRANSFERASE (GGT)2017-03-24 06:29:00 Test Item Value Reference Range Interpretation Comments GAMMA GLUTAMYL TRANSFERASE (BEAKER) 28 U/L 9-64 (test code = 364) CBC W/PLT COUNT & AUTO [id number] 06:11:00 Test Item Value Reference Range Interpretation Comments WHITE BLOOD CELL COUNT (BEAKER) 9.4 K/ L 4.0-10.0 (test code = 775) RED BLOOD CELL COUNT (BEAKER) 4.21 M/ L 4.00-5.00 (test code = 761) HEMOGLOBIN (BEAKER) (test code = 11.3 GM/DL 12.0-15.0 L 410) HEMATOCRIT (BEAKER) (test code = 37.0 % 36.0-45.0 411) MEAN CORPUSCULAR VOLUME (BEAKER) 87.8 fL 82.0-99.0 (test code = 753) MEAN CORPUSCULAR HEMOGLOBIN 26.8 pg 27.0-33.0 L (BEAKER) (test code = 751) MEAN CORPUSCULAR HEMOGLOBIN CONC 30.5 GM/DL 32.0-36.0 L (BEAKER) (test code = 752) RED CELL DISTRIBUTION WIDTH 14.1 % 10.3-14.2 (BEAKER) (test code = 412) PLATELET COUNT (BEAKER) (test 321 K/CU MM 150-430 code = 756) MEAN PLATELET VOLUME (BEAKER) 9.0 fL 6.5-10.5 (test code = 754) NUCLEATED RED BLOOD CELLS 0 /100 WBC 0-0 (BEAKER) (test code = 413) NEUTROPHILS RELATIVE PERCENT 93 % (BEAKER) (test code = 429) LYMPHOCYTES RELATIVE PERCENT 6 % (BEAKER) (test code = 430) MONOCYTES RELATIVE PERCENT 1 % (BEAKER) (test code = 431) EOSINOPHILS RELATIVE PERCENT 0 % (BEAKER) (test code = 432) BASOPHILS RELATIVE PERCENT 0 % (BEAKER) (test code = 437) NEUTROPHILS ABSOLUTE COUNT 8.70 K/ L 1.80-8.00 H (BEAKER) (test code = 670) LYMPHOCYTES ABSOLUTE COUNT 0.60 K/ L 1.48-4.50 L (BEAKER) (test code = 414) MONOCYTES ABSOLUTE COUNT (BEAKER) 0.07 K/ L 0.00-1.30 (test code = 415) EOSINOPHILS ABSOLUTE COUNT 0.01 K/ L 0.00-0.50 (BEAKER) (test code = 416) BASOPHILS ABSOLUTE COUNT (BEAKER) 0.00 K/ L 0.00-0.20 (test code = 417) 0.00POCT-GLUCOSE [id number] 00:12:00 Test Item Value Reference Range Interpretation Comments POC-GLUCOSE METER 403 mg/dL 70-110 HH Notified R Collin STAPLETON/TESTED (BEAKER) (test code = AT [place] [address] [address] 1538) [facility] 7703 0 URINALYSIS W/ [id number] 21:19:00 Test Item Value Reference Range Interpretation Comments COLOR (BEAKER) (test code Light Yellow = 470) CLARITY (BEAKER) (test Clear code = 469) SPECIFIC GRAVITY UA 1.013 1.001-1.035 (BEAKER) (test code = 468) PH UA (BEAKER) (test code 6.5 5.0-8.0 = 467) PROTEIN UA (BEAKER) (test 20 mg/dL Negative A code = 464) GLUCOSE UA (BEAKER) (test >1000 mg/dL Negative A code = 365) KETONES UA (BEAKER) (test Negative Negative code = 371) BILIRUBIN UA (BEAKER) Negative Negative (test code = 462) BLOOD UA (BEAKER) (test Negative Negative code = 461) NITRITE UA (BEAKER) (test Negative Negative code = 465) LEUKOCYTE ESTERASE UA Negative Negative (BEAKER) (test code = 466) UROBILINOGEN UA (BEAKER) 0.2 mg/dL 0.2-1.0 (test code = 463) RBC UA (BEAKER) (test code 1 /HPF = 519) WBC UA (BEAKER) (test code < /HPF = 520) SQUAMOUS EPITHELIAL < /HPF (BEAKER) (test code = 516) SOURCE(BEAKER) (test code Urine, Clean Catch = 0005) POCT-GLUCOSE [id number] 19:36:00 Test Item Value Reference Range Interpretation Comments POC-GLUCOSE METER 405 mg/dL 70-110 HH Notified R Collin STAPLETON/TESTED (BEAKER) (test code = AT [place] [address] [facility] 1538) [place] [address] 0 POCT-LACTIC ACID, [id number] 18:38:00 Test Item Value Reference Range Interpretation Comments POC-LACTIC ACID, 1.9 mmol/L 0.9-1.7 H TESTED AT [place] [address] VENOUS (BEAKER) (test PAUL MED[place] code = 2805) [address] CREATINE KINASE (CK), TOTAL AND [id number] 18:36:00 Test Item Value Reference Range Interpretation Comments CREATINE KINASE TOTAL (BEAKER) 39 U/L 29-200 (test code = 380) CREATINE KINASE-MB (BEAKER) (test 0.5 ng/mL 0.0-6.6 code = 750) CREATINE KINASE-MB INDEX (BEAKER) 1.3 % (test code = 395) Effective 09/11/2014: CK-MB Reference Range ChangeNew: 0.0-6.6 Previous: 0.0-4.9CK-MB Reference Range:<6.7 Normal6.7-10.0 Borderline>10.0 AbnormalTROPONIN [id number] 18:36:00 Test Item Value Reference Range Interpretation Comments TROPONIN I (BEAKER) (test code = 397) < ng/mL 0.00-0.03 Effective 09/11/2014: Reference Range [...] neurological disease, and persistent tachyarrhythmia.B-TYPE NATRIURETIC FACTOR (BNP) 2017-03-23 18:34:00 Test Item Value Reference Range Interpretation Comments B-TYPE NATRIURETIC PEPTIDE (BEAKER) 43 pg/mL 0-100 (test code = 700) [id number] 18:28:00 Test Item Value Reference Range Interpretation Comments MAGNESIUM (BEAKER) (test code = 1.7 mg/dL 1.6-2.6 627) BASIC METABOLIC [id number] 18:28:00 Test Item Value Reference Range Interpretation Comments SODIUM (BEAKER) 139 meq/L 136-145 (test code = 381) POTASSIUM (BEAKER) 3.9 meq/L 3.5-5.1 (test code = 379) CHLORIDE (BEAKER) 105 meq/L 98-107 (test code = 382) CO2 (BEAKER) (test 25 meq/L 22-29 code = 355) BLOOD UREA NITROGEN 10 mg/dL 7-21 (BEAKER) (test code = 354) CREATININE (BEAKER) 0.68 mg/dL 0.57-1.25 (test code = 358) GLUCOSE RANDOM 163 mg/dL 70-105 H (BEAKER) (test code = 652) CALCIUM (BEAKER) 9.2 mg/dL 8.4-10.2 (test code = 697) EGFR (BEAKER) (test 129 mL/min/1.73 ESTIM ATED GFR IS code = 1092) sq m NOT ACCURATE CREATININE CLEARANCE IN PREDICTING GLOMERULAR FILTRATION RATE . ESTIMATED GFR I S NOT APPLICABLE FOR DIALYSIS PATIEN TS. [id number] 18:24:00 Test Item Value Reference Range Interpretation Comments PROTIME (BEAKER) (test code = 13.1 seconds 11.7-14.7 759) INR (BEAKER) (test code = 370) 1.0 <=5.9 PARTIAL THROMBOPLASTIN TIME 32.9 seconds 22.5-36.0 (BEAKER) (test code = 760) RECOMMENDED COUMADIN/WARFARIN INR THERAPY RANGESSTANDARD DOSE: 2.0 - 3.0 Includes: PROPHYLAXIS forvenous thrombosis, systemic embolization; TREATMENT for venous thrombosis and/or pulmonary embolus.HIGH RISK: Target INR is 2.5-3.5 for patients with mechanical heart valves.CBC W/PLT COUNT & AUTO DIFFERENTIAL 2017-03-23 18:16:00 Test Item Value Reference Range Interpretation Comments WHITE BLOOD CELL COUNT (BEAKER) 11.5 K/ L 4.0-10.0 H (test code = 775) RED BLOOD CELL COUNT (BEAKER) 4.29 M/ L 4.00-5.00 (test code = 761) HEMOGLOBIN (BEAKER) (test code = 11.3 GM/DL 12.0-15.0 L 410) HEMATOCRIT (BEAKER) (test code = 37.0 % 36.0-45.0 411) MEAN CORPUSCULAR VOLUME (BEAKER) 86.1 fL 82.0-99.0 (test code = 753) MEAN CORPUSCULAR HEMOGLOBIN 26.4 pg 27.0-33.0 L (BEAKER) (test code = 751) MEAN CORPUSCULAR HEMOGLOBIN CONC 30.7 GM/DL 32.0-36.0 L (BEAKER) (test code = 752) RED CELL DISTRIBUTION WIDTH 15.7 % 10.3-14.2 H (BEAKER) (test code = 412) PLATELET COUNT (BEAKER) (test 364 K/CU MM 150-430 code = 756) MEAN PLATELET VOLUME (BEAKER) 8.6 fL 6.5-10.5 (test code = 754) NUCLEATED RED BLOOD CELLS 0 /100 WBC 0-0 (BEAKER) (test code = 413) NEUTROPHILS RELATIVE PERCENT 65 % (BEAKER) (test code = 429) LYMPHOCYTES RELATIVE PERCENT 23 % (BEAKER) (test code = 430) MONOCYTES RELATIVE PERCENT 8 % (BEAKER) (test code = 431) EOSINOPHILS RELATIVE PERCENT 4 % (BEAKER) (test code = 432) BASOPHILS RELATIVE PERCENT 1 % (BEAKER) (test code = 437) NEUTROPHILS ABSOLUTE COUNT 7.52 K/ L 1.80-8.00 (BEAKER) (test code = 670) LYMPHOCYTES ABSOLUTE COUNT 2.63 K/ L 1.48-4.50 (BEAKER) (test code = 414) MONOCYTES ABSOLUTE COUNT (BEAKER) 0.88 K/ L 0.00-1.30 (test code = 415) EOSINOPHILS ABSOLUTE COUNT 0.44 K/ L 0.00-0.50 (BEAKER) (test code = 416) BASOPHILS ABSOLUTE COUNT (BEAKER) 0.07 K/ L 0.00-0.20 (test code = 417) 0.00AFB CULTURE + [id number] 18:28:00 Test Item Value Reference Range Interpretation Comments CULTURE (BEAKER) (test No acid-fast bacilli code = 1095) isolated in 42 days AFB SMEAR (BEAKER) No acid fast bacilli (test code = 994) seen AFB CULTURE + [id number] 12:13:00 Test Item Value Reference Range Interpretation Comments CULTURE (BEAKER) (test No acid-fast bacilli code = 1095) isolated in 42 days AFB SMEAR (BEAKER) No acid fast bacilli (test code = 994) seen FUNGUS CULTURE + [id number] 18:28:00 Test Item Value Reference Range Interpretation Comments CULTURE (BEAKER) A 2+ Clau albicans (test code = 1095) FUNGUS SMEAR No fungi seen (BEAKER) (test code = 1406) CF RESPIRATORY [id number] 04:50:00 Test Item Value Reference Range Interpretation Comments CULTURE (BEAKER) PSEUDOMONAS A 2+ Pseudomo viki (test code = 1095) AERUGINOSA aeruginos a Amikacin (test code Susceptible 0-16 S = 1) , Resistant <0 or >16 Aztreonam (test Susceptible 0-8 , S code = 32) Resistant <0 or >8 Cefepime (test code Susceptible 0-8 , S = 51) Resistant <0 or >8 Ceftazidime (test Susceptible 0-8 , S code = 27) Resistant <0 or >8 Ciprofloxacin (test Susceptible 0-1 , S code = 7) Resistant <0 or >1 Doripenem (test Susceptible 0-2 , S code = 100) Resistant <0 or >2 Gentamicin (test Susceptible 0-4 , S code = 18) Resistant <0 or >4 Imipenem (test code Susceptible 0-2 , R = 19) Resistant <0 or >2 Levofloxacin (test Susceptible 0-2 , R code = 22) Resistant <0 or >2 Meropenem (test Susceptible 0-2 , S code = 34) Resistant <0 or >2 Piperacillin (test Susceptible 0-16 R code = 24) , Resistant <0 or >16 Piperacillin + Susceptible 0-16 S Tazobactam (test , Resistant <0 or code = 29) >16 Tobramycin (test Susceptible 0-4 , S code = 25) Resistant <0 or >4 CULTURE (BEAKER) PSEUDOMONAS A 2+ Pseudomo viki (test code = 70035) AERUGINOSA aerugino saof a second type Amikacin (test code Susceptible 0-16 S = 1) , Resistant <0 or >16 Aztreonam (test Susceptible 0-8 , S code = 32) Resistant <0 or >8 Cefepime (test code Susceptible 0-8 , S = 51) Resistant <0 or >8 Ceftazidime (test Susceptible 0-8 , S code = 27) Resistant <0 or >8 Ciprofloxacin (test Susceptible 0-1 , R code = 7) Resistant <0 or >1 Doripenem (test Susceptible 0-2 , R code = 100) Resistant <0 or >2 Gentamicin (test Susceptible 0-4 , R code = 18) Resistant <0 or >4 Imipenem (test code Susceptible 0-2 , R = 19) Resistant <0 or >2 Levofloxacin (test Susceptible 0-2 , R code = 22) Resistant <0 or >2 Meropenem (test Susceptible 0-2 , R code = 34) Resistant <0 or >2 Piperacillin (test Susceptible 0-16 S code = 24) , Resistant <0 or >16 Piperacillin + Susceptible 0-16 S Tazobactam (test , Resistant <0 or code = 29) >16 Tobramycin (test Susceptible 0-4 , S code = 25) Resistant <0 or >4 2+ Normal respiratory derick presentBLOOD [id number] 18:00:00 Test Item Value Reference Range Interpretation Comments CULTURE (BEAKER) (test No growth in 5 days code = 1095) BLOOD [id number] 18:00:00 Test Item Value Reference Range Interpretation Comments CULTURE (BEAKER) (test No growth in 5 days code = 1095) POCT-GLUCOSE [id number] 12:39:00 Test Item Value Reference Range Interpretation Comments POC-GLUCOSE METER 352 mg/dL 70-[address] [facility] 6720 (BEAKER) (test code = PAUL Tanner [facility] 1538) [address] BASIC METABOLIC [id number] 10:03:00 Test Item Value Reference Range Interpretation Comments SODIUM (BEAKER) 141 meq/L 136-145 (test code = 381) POTASSIUM (BEAKER) 3.7 meq/L 3.5-5.1 (test code = 379) CHLORIDE (BEAKER) 101 meq/L 98-107 (test code = 382) CO2 (BEAKER) (test 31 meq/L 22-29 H code = 355) BLOOD UREA NITROGEN 7 mg/dL 7-21 (BEAKER) (test code = 354) CREATININE (BEAKER) 0.57 mg/dL 0.57-1.25 (test code = 358) GLUCOSE RANDOM 87 mg/dL 70-105 (BEAKER) (test code = 652) CALCIUM (BEAKER) 8.4 mg/dL 8.4-10.2 (test code = 697) EGFR (BEAKER) (test 158 mL/min/1.73 ESTIM ATED GFR IS code = 1092) sq m NOT ACCURATE CREATININE CLEARANCE IN PREDICTING GLOMERULAR FILTRATION RATE . ESTIMATED GFR I S NOT APPLICABLE FOR DIALYSIS PATIEN TS. CBC W/PLT COUNT & AUTO [id number] 09:23:00 Test Item Value Reference Range Interpretation Comments WHITE BLOOD CELL COUNT (BEAKER) 13.8 K/ L 4.0-10.0 H (test code = 775) RED BLOOD CELL COUNT (BEAKER) 3.83 M/ L 4.00-5.00 L (test code = 761) HEMOGLOBIN (BEAKER) (test code = 10.5 GM/DL 12.0-15.0 L 410) HEMATOCRIT (BEAKER) (test code = 34.5 % 36.0-45.0 L 411) MEAN CORPUSCULAR VOLUME (BEAKER) 90.1 fL 82.0-99.0 (test code = 753) MEAN CORPUSCULAR HEMOGLOBIN 27.5 pg 27.0-33.0 (BEAKER) (test code = 751) MEAN CORPUSCULAR HEMOGLOBIN CONC 30.6 GM/DL 32.0-36.0 L (BEAKER) (test code = 752) RED CELL DISTRIBUTION WIDTH 14.1 % 10.3-14.2 (BEAKER) (test code = 412) PLATELET COUNT (BEAKER) (test 354 K/CU MM 150-430 code = 756) MEAN PLATELET VOLUME (BEAKER) 8.4 fL 6.5-10.5 (test code = 754) NUCLEATED RED BLOOD CELLS 0 /100 WBC 0-0 (BEAKER) (test code = 413) NEUTROPHILS RELATIVE PERCENT 68 % (BEAKER) (test code = 429) LYMPHOCYTES RELATIVE PERCENT 19 % (BEAKER) (test code = 430) MONOCYTES RELATIVE PERCENT 10 % (BEAKER) (test code = 431) EOSINOPHILS RELATIVE PERCENT 3 % (BEAKER) (test code = 432) BASOPHILS RELATIVE PERCENT 0 % (BEAKER) (test code = 437) NEUTROPHILS ABSOLUTE COUNT 9.41 K/ L 1.80-8.00 H (BEAKER) (test code = 670) LYMPHOCYTES ABSOLUTE COUNT 2.64 K/ L 1.48-4.50 (BEAKER) (test code = 414) MONOCYTES ABSOLUTE COUNT (BEAKER) 1.35 K/ L 0.00-1.30 H (test code = 415) EOSINOPHILS ABSOLUTE COUNT 0.37 K/ L 0.00-0.50 (BEAKER) (test code = 416) BASOPHILS ABSOLUTE COUNT ([facility]) 0.03 K/ L 0.00-0.20 (test code = 417) 0.00POCT-GLUCOSE [id number] 08:55:00 Test Item Value Reference Range Interpretation Comments POC-GLUCOSE METER 82 mg/dL 70-110 TESTED AT [place] [address] ([facility]) (test code = [facility] [address] 1538) POCT-GLUCOSE [id number] 21:23:00 Test Item Value Reference Range Interpretation Comments POC-GLUCOSE METER 264 mg/dL 70-110 H TESTED AT [place] [address] ([facility]) (test code = [facility] 1538) [address] POCT-GLUCOSE [id number] 17:56:00 Test Item Value Reference Range Interpretation Comments POC-GLUCOSE METER 340 mg/dL 70-110 H TESTED AT [place] [address] ([facility]) (test code = [facility] 1538) [address] POCT-GLUCOSE [id number] 12:16:00 Test Item Value Reference Range Interpretation Comments POC-GLUCOSE METER 386 mg/dL 70-110 H TESTED AT [place] [address] ([facility]) (test code = [facility] 1538) [address] POCT-GLUCOSE [id number] 08:24:00 Test Item Value Reference Range Interpretation Comments POC-GLUCOSE METER 105 mg/dL 70-110 TESTED AT [place] [address] ([facility]) (test code = [facility] 1538) [address] BUN AND [id number] 06:44:00 Test Item Value Reference Range Interpretation Comments BLOOD UREA NITROGEN 5 mg/dL 7-21 L ([facility]) (test code = 354) CREATININE ([facility]) 0.56 mg/dL 0.57-1.25 L (test code = 358) EGFR ([facility]) (test 161 mL/min/1.73 ESTIM ATED GFR IS code = 1092) sq m NOT ACCURATE CREATININE CLEARANCE IN PREDICTING GLOMERULAR FILTRATION RATE . ESTIMATED GFR I S NOT APPLICABLE FOR DIALYSIS PATIEN TS. POCT-GLUCOSE [id number] 23:49:00 Test Item Value Reference Range Interpretation Comments POC-GLUCOSE METER 211 mg/dL 70-110 H TESTED AT [place] [address] ([facility]) (test code = PAUL Tanner [facility] 1538) [address] POCT-GLUCOSE [id number] 19:36:00 Test Item Value Reference Range Interpretation Comments POC-GLUCOSE METER 288 mg/dL 70-110 H TESTED AT [place] [address] ([facility]) (test code = PAUL Tanner [facility] 1538) [address] BUN AND [id number] 18:20:00 Test Item Value Reference Range Interpretation Comments BLOOD UREA NITROGEN 8 mg/dL 7-21 ([facility]) (test code = 354) CREATININE ([facility]) 0.77 mg/dL 0.57-1.25 (test code = 358) EGFR ([facility]) (test 112 mL/min/1.73 ESTIM ATED GFR IS code = 1092) sq m NOT ACCURATE CREATININE CLEARANCE IN PREDICTING GLOMERULAR FILTRATION RATE . ESTIMATED GFR I S NOT APPLICABLE FOR DIALYSIS PATIEN TS. POCT-GLUCOSE [id number] 17:09:00 Test Item Value Reference Range Interpretation Comments POC-GLUCOSE METER 388 mg/dL 70-110 H TESTED AT [place] [address] ([facility]) (test code = PAUL Tanner [facility] 1538) [address] POCT-GLUCOSE [id number] 13:54:00 Test Item Value Reference Range Interpretation Comments POC-GLUCOSE METER 445 mg/dL 70-110 HH TESTED AT [place] [address] ([facility]) (test code = PAUL Tanner [facility] 1538) [address] POCT-GLUCOSE [id number] 11:39:00 Test Item Value Reference Range Interpretation Comments POC-GLUCOSE METER 349 mg/dL 70-110 H TESTED AT [place] [address] ([facility]) (test code = PAUL Tanner [facility] 1538) [address] POCT-GLUCOSE [id number] 09:08:00 Test Item Value Reference Range Interpretation Comments POC-GLUCOSE METER 52 mg/dL 70-110 L TESTED AT [place] [address] ([facility]) (test code = [facility] Ciro [facility] [id number] 1538) POCT-GLUCOSE [id number] 22:14:00 Test Item Value Reference Range Interpretation Comments POC-GLUCOSE METER 99 mg/dL 70-110 TESTED AT [place] [address] ([facility]) (test code = NAOMIOR Ciro [facility] [id number] 1538) POCT-GLUCOSE [id number] 18:07:00 Test Item Value Reference Range Interpretation Comments POC-GLUCOSE METER 209 mg/dL 70-[address] [facility] 6720 ([facility]) (test code = PAUL Tanner [facility] 1538) [address] POCT-GLUCOSE [id number] 12:13:00 Test Item Value Reference Range Interpretation Comments POC-GLUCOSE METER 101 mg/dL 70-[address] [facility] 6720 (BEAKER) (test code = PAUL Tanner [facility] 1538) [id number] POCT-GLUCOSE [id number] 08:28:00 Test Item Value Reference Range Interpretation Comments POC-GLUCOSE METER 311 mg/dL 70-[address] [facility] 67 (BEAKER) (test code = [facility] Ciro [facility] 1538) [address] BASIC METABOLIC [id number] 04:01:00 Test Item Value Reference Range Interpretation Comments SODIUM (BEAKER) 135 meq/L 136-145 L (test code = 381) POTASSIUM (BEAKER) 4.2 meq/L 3.5-5.1 (test code = 379) CHLORIDE (BEAKER) 99 meq/L 98-107 (test code = 382) CO2 (BEAKER) (test 29 meq/L 22-29 code = 355) BLOOD UREA NITROGEN 17 mg/dL 7-21 (BEAKER) (test code = 354) CREATININE (BEAKER) 0.79 mg/dL 0.57-1.25 (test code = 358) GLUCOSE RANDOM 402 mg/dL 70-105 HH (BEAKER) (test code = 652) CALCIUM (BEAKER) 7.9 mg/dL 8.4-10.2 L (test code = 697) EGFR (BEAKER) (test 108 mL/min/1.73 ESTIM ATED GFR IS code = 1092) sq m NOT ACCURATE CREATININE CLEARANCE IN PREDICTING GLOMERULAR FILTRATION RATE . ESTIMATED GFR I S NOT APPLICABLE FOR DIALYSIS PATIEN TS. CBC W/PLT COUNT & AUTO [id number] 03:36:00 Test Item Value Reference Range Interpretation Comments WHITE BLOOD CELL COUNT (BEAKER) 12.5 K/ L 4.0-10.0 H (test code = 775) RED BLOOD CELL COUNT (BEAKER) 3.97 M/ L 4.00-5.00 L (test code = 761) HEMOGLOBIN (BEAKER) (test code = 11.3 GM/DL 12.0-15.0 L 410) HEMATOCRIT (BEAKER) (test code = 36.2 % 36.0-45.0 411) MEAN CORPUSCULAR VOLUME (BEAKER) 91.2 fL 82.0-99.0 (test code = 753) MEAN CORPUSCULAR HEMOGLOBIN 28.4 pg 27.0-33.0 (BEAKER) (test code = 751) MEAN CORPUSCULAR HEMOGLOBIN CONC 31.1 GM/DL 32.0-36.0 L (BEAKER) (test code = 752) RED CELL DISTRIBUTION WIDTH 13.9 % 10.3-14.2 (BEAKER) (test code = 412) PLATELET COUNT (BEAKER) (test 358 K/CU MM 150-430 code = 756) MEAN PLATELET VOLUME (BEAKER) 8.8 fL 6.5-10.5 (test code = 754) NUCLEATED RED BLOOD CELLS 0 /100 WBC 0-0 (BEAKER) (test code = 413) NEUTROPHILS RELATIVE PERCENT 73 % (BEAKER) (test code = 429) LYMPHOCYTES RELATIVE PERCENT 19 % (BEAKER) (test code = 430) MONOCYTES RELATIVE PERCENT 6 % (BEAKER) (test code = 431) EOSINOPHILS RELATIVE PERCENT 2 % (BEAKER) (test code = 432) BASOPHILS RELATIVE PERCENT 0 % (BEAKER) (test code = 437) NEUTROPHILS ABSOLUTE COUNT 9.15 K/ L 1.80-8.00 H (BEAKER) (test code = 670) LYMPHOCYTES ABSOLUTE COUNT 2.35 K/ L 1.48-4.50 (BEAKER) (test code = 414) MONOCYTES ABSOLUTE COUNT (BEAKER) 0.74 K/ L 0.00-1.30 (test code = 415) EOSINOPHILS ABSOLUTE COUNT 0.25 K/ L 0.00-0.50 (BEAKER) (test code = 416) BASOPHILS ABSOLUTE COUNT (BEAKER) 0.04 K/ L 0.00-0.20 (test code = 417) 0.00POCT-GLUCOSE [id number] 22:02:00 Test Item Value Reference Range Interpretation Comments POC-GLUCOSE METER 129 mg/dL 70-[address] [facility] 6720 ([facility]) (test code = [place] 1538) [id number] POCT-GLUCOSE [id number] 17:43:00 Test Item Value Reference Range Interpretation Comments POC-GLUCOSE METER 399 mg/dL 70-[address] [facility] 6720 (BEAKER) (test code = PAUL [place] 1538) [address] SPIN/CONCENTRATION [id number] 13:27:00 Test Item Value Reference Range Interpretation Comments CONCENTRATION CHARGED (BEAKER) (test Done code = 2657) POCT-GLUCOSE [id number] 12:38:00 Test Item Value Reference Range Interpretation Comments POC-GLUCOSE METER 312 mg/dL 70-[address] [facility] 67 (BEAKER) (test code = PAUL Tanner [facility] 1538) [address] CBC W/PLT COUNT & AUTO [id number] 09:37:00 Test Item Value Reference Range Interpretation Comments WHITE BLOOD CELL COUNT (BEAKER) 14.2 K/ L 4.0-10.0 H (test code = 775) RED BLOOD CELL COUNT (BEAKER) 4.26 M/ L 4.00-5.00 (test code = 761) HEMOGLOBIN (BEAKER) (test code = 11.9 GM/DL 12.0-15.0 L 410) HEMATOCRIT (BEAKER) (test code = 38.2 % 36.0-45.0 411) MEAN CORPUSCULAR VOLUME (BEAKER) 89.9 fL 82.0-99.0 (test code = 753) MEAN CORPUSCULAR HEMOGLOBIN 27.9 pg 27.0-33.0 (BEAKER) (test code = 751) MEAN CORPUSCULAR HEMOGLOBIN CONC 31.1 GM/DL 32.0-36.0 L (BEAKER) (test code = 752) RED CELL DISTRIBUTION WIDTH 14.0 % 10.3-14.2 (BEAKER) (test code = 412) PLATELET COUNT (BEAKER) (test 359 K/CU MM 150-430 code = 756) MEAN PLATELET VOLUME (BEAKER) 8.9 fL 6.5-10.5 (test code = 754) NUCLEATED RED BLOOD CELLS 0 /100 WBC 0-0 (BEAKER) (test code = 413) NEUTROPHILS RELATIVE PERCENT 76 % (BEAKER) (test code = 429) LYMPHOCYTES RELATIVE PERCENT 18 % (BEAKER) (test code = 430) MONOCYTES RELATIVE PERCENT 5 % (BEAKER) (test code = 431) EOSINOPHILS RELATIVE PERCENT 1 % (BEAKER) (test code = 432) BASOPHILS RELATIVE PERCENT 0 % (BEAKER) (test code = 437) NEUTROPHILS ABSOLUTE COUNT 10.80 K/ L 1.80-8.00 H (BEAKER) (test code = 670) LYMPHOCYTES ABSOLUTE COUNT 2.52 K/ L 1.48-4.50 (BEAKER) (test code = 414) MONOCYTES ABSOLUTE COUNT (BEAKER) 0.65 K/ L 0.00-1.30 (test code = 415) EOSINOPHILS ABSOLUTE COUNT 0.21 K/ L 0.00-0.50 (BEAKER) (test code = 416) BASOPHILS ABSOLUTE COUNT (BEAKER) 0.03 K/ L 0.00-0.20 (test code = 417) 0.00HCG, QUANTITATIVE, [id number] 09:10:00 Test Item Value Reference Range Interpretation Comments GONADOTROPIN, CHORIONIC (HCG) QUANT < mIU/mL 0-10 (BEAKER) (test code = 649) Non- Females: <10 mIU/mL Females: Gestation Age Reference Range(mIU/mL) 0.2-1 Week 5-50 1-2 Weeks 50-500 2-3 Weeks 100-5,000 3-4Weeks 500-10,000 4-5 Weeks 1,000-50,000 5-6 Weeks 10,000-100,000 6-8 Weeks 15,000-200,000 2-3 Months 10,000-100,000PREGNANCY SCREEN, URINE 2017-01-01 09:05:00 Test Item Value Reference Range Interpretation Comments TEST URINE (BEAKER) (test Negative code = 583) GAMMA GLUTAMYL TRANSFERASE (GGT)2017-01-01 09:02:00 Test Item Value Reference Range Interpretation Comments GAMMA GLUTAMYL TRANSFERASE (BEAKER) 22 U/L 9-64 (test code = 364) COMPREHENSIVE METABOLIC [id number] 09:02:00 Test Item Value Reference Range Interpretation Comments TOTAL PROTEIN 6.6 gm/dL 6.0-8.3 (BEAKER) (test code = 770) ALBUMIN (BEAKER) 2.6 g/dL 3.5-5.0 L (test code = 1145) ALKALINE PHOSPHATASE 136 U/L 40-150 (BEAKER) (test code = 346) BILIRUBIN TOTAL 0.1 mg/dL 0.2-1.2 L (BEAKER) (test code = 377) SODIUM (BEAKER) (test 135 meq/L 136-145 L code = 381) POTASSIUM (BEAKER) 4.4 meq/L 3.5-5.1 (test code = 379) CHLORIDE (BEAKER) 100 meq/L 98-107 (test code = 382) CO2 (BEAKER) (test 25 meq/L 22-29 code = 355) BLOOD UREA NITROGEN 7 mg/dL 7-21 (BEAKER) (test code = 354) CREATININE (BEAKER) 0.81 mg/dL 0.57-1.25 (test code = 358) GLUCOSE RANDOM 378 mg/dL 70-105 H (BEAKER) (test code = 652) CALCIUM (BEAKER) 8.0 mg/dL 8.4-10.2 L (test code = 697) AST (SGOT) (BEAKER) 7 U/L 5-34 (test code = 353) ALT (SGPT) (BEAKER) 8 U/L 6-55 (test code = 347) EGFR (BEAKER) (test 105 ESTIMATE D GFR IS code = 1092) mL/min/1.73 sq NOT ACCURA TE m CREATININE CLEARANCE IN PREDICTING GLOMERULAR FILTRATION RATE . ESTIMATED GFR I S NOT APPLICABLE FOR DIALYSIS PATIEN TS. POCT-GLUCOSE [id number] 07:27:00 Test Item Value Reference Range Interpretation Comments POC-GLUCOSE METER 327 mg/dL 70-[address] [facility] 67[address] ([facility]) (test code = [place] 1538) [address] POCT-GLUCOSE [id number] 21:00:00 Test Item Value Reference Range Interpretation Comments POC-GLUCOSE METER 218 mg/dL 70-[address] [facility] 67[address] ([facility]) (test code = [place] 1538) [address] LACTIC ACID, VENOUS, WHOLE [id number] 17:38:00 Test Item Value Reference Range Interpretation Comments LACTATE BLOOD VENOUS (2) (BEAKER) 2.3 mmol/L 0.5-2.2 H (test code = 2872) Effective 02/26/2016: Units/Reference Range ChangeNew: 0.5-2.2 mmol/L Previous: 5-20 mg/dLPOCT-GLUCOSE [id number] 17:13:00 Test Item Value Reference Range Interpretation Comments POC-GLUCOSE METER 97 mg/dL 70-[address] [facility] [address] (BEAKER) (test code = [place] [address] 1538) KETONE, [id number] 15:38:00 Test Item Value Reference Range Interpretation Comments KETONES, BLOOD (BEAKER) (test code 0.1 mmol/L <0.4 = 1103) CBC W/PLT COUNT & AUTO [id number] 15:28:00 Test Item Value Reference Range Interpretation Comments WHITE BLOOD CELL COUNT (BEAKER) 16.4 K/ L 4.0-10.0 H (test code = 775) RED BLOOD CELL COUNT (BEAKER) 4.60 M/ L 4.00-5.00 (test code = 761) HEMOGLOBIN (BEAKER) (test code = 13.1 GM/DL 12.0-15.0 410) HEMATOCRIT (BEAKER) (test code = 41.3 % 36.0-45.0 411) MEAN CORPUSCULAR VOLUME (BEAKER) 89.6 fL 82.0-99.0 (test code = 753) MEAN CORPUSCULAR HEMOGLOBIN 28.4 pg 27.0-33.0 (BEAKER) (test code = 751) MEAN CORPUSCULAR HEMOGLOBIN CONC 31.7 GM/DL 32.0-36.0 L (BEAKER) (test code = 752) RED CELL DISTRIBUTION WIDTH 14.1 % 10.3-14.2 (BEAKER) (test code = 412) PLATELET COUNT (BEAKER) (test 358 K/CU MM 150-430 code = 756) MEAN PLATELET VOLUME (BEAKER) 9.5 fL 6.5-10.5 (test code = 754) NUCLEATED RED BLOOD CELLS 0 /100 WBC 0-0 (BEAKER) (test code = 413) NEUTROPHILS RELATIVE PERCENT 82 % (BEAKER) (test code = 429) LYMPHOCYTES RELATIVE PERCENT 9 % (BEAKER) (test code = 430) MONOCYTES RELATIVE PERCENT 7 % (BEAKER) (test code = 431) EOSINOPHILS RELATIVE PERCENT 2 % (BEAKER) (test code = 432) BASOPHILS RELATIVE PERCENT 0 % (BEAKER) (test code = 437) NEUTROPHILS ABSOLUTE COUNT 13.40 K/ L 1.80-8.00 H (BEAKER) (test code = 670) LYMPHOCYTES ABSOLUTE COUNT 1.53 K/ L 1.48-4.50 (BEAKER) (test code = 414) MONOCYTES ABSOLUTE COUNT (BEAKER) 1.07 K/ L 0.00-1.30 (test code = 415) EOSINOPHILS ABSOLUTE COUNT 0.31 K/ L 0.00-0.50 (BEAKER) (test code = 416) BASOPHILS ABSOLUTE COUNT (BEAKER) 0.01 K/ L 0.00-0.20 (test code = 417) 0.00COMPREHENSIVE METABOLIC [id number] 15:27:00 Test Item Value Reference Range Interpretation Comments TOTAL PROTEIN 7.2 gm/dL 6.0-8.3 (BEAKER) (test code = 770) ALBUMIN (BEAKER) 2.8 g/dL 3.5-5.0 L (test code = 1145) ALKALINE PHOSPHATASE 157 U/L 40-150 H (BEAKER) (test code = 346) BILIRUBIN TOTAL 0.1 mg/dL 0.2-1.2 L (BEAKER) (test code = 377) SODIUM (BEAKER) (test 131 meq/L 136-145 L code = 381) POTASSIUM (BEAKER) 4.0 meq/L 3.5-5.1 (test code = 379) CHLORIDE (BEAKER) 95 meq/L 98-107 L (test code = 382) CO2 (BEAKER) (test 25 meq/L 22-29 code = 355) BLOOD UREA NITROGEN 7 mg/dL 7-21 (BEAKER) (test code = 354) CREATININE (BEAKER) 0.95 mg/dL 0.57-1.25 (test code = 358) GLUCOSE RANDOM 655 mg/dL 70-105 HH (BEAKER) (test code = 652) CALCIUM (BEAKER) 8.2 mg/dL 8.4-10.2 L (test code = 697) AST (SGOT) (BEAKER) 8 U/L 5-34 (test code = 353) ALT (SGPT) (BEAKER) 7 U/L 6-55 (test code = 347) EGFR (BEAKER) (test 88 mL/min/1.73 ESTIMA MAGDALENO GFR IS code = 1092) sq m NOT ACCURATE CREATININE CLEARANCE IN PREDICTING GLOMERULAR FILTRATION RATE . ESTIMATED GFR I S NOT APPLICABLE FOR DIALYSIS PATIEN TS. POCT-LACTIC ACID, [id number] 15:01:00 Test Item Value Reference Range Interpretation Comments POC-LACTIC ACID, 2.5 mmol/L 0.9-1.7 H TESTED AT [facility] 67[address] VENOUS (BEAKER) (test [place] code = 2805) [address] POCT-GLUCOSE [id number] 14:59:00 Test Item Value Reference Range Interpretation Comments POC-GLUCOSE METER > mg/dL 70-110 HH OUTSIDE ME ASURING (BEAKER) (test code RANGETES MAGDALENO AT [facility] 6720 = 1538) [place] [address] FUNGUS CULTURE + [id number] 19:28:00 Test Item Value Reference Range Interpretation Comments CULTURE (BEAKER) A 2+ Clau albicans (test code = 1095) FUNGUS SMEAR No fungi seen (BEAKER) (test code = 1406) CULTURE (BEAKER) A 1 out of 3 media (test code = Aspergillus 41007) fumigatusThis i s an appended report . These organism result s have been appended t o a previously sylwia l verified report . CBC W/PLT COUNT & AUTO [id number] 14:39:00 Test Item Value Reference Range Interpretation Comments WHITE BLOOD CELL COUNT (BEAKER) 13.5 K/ L 4.0-10.0 H (test code = 775) RED BLOOD CELL COUNT (BEAKER) 3.70 M/ L 4.00-5.00 L (test code = 761) HEMOGLOBIN (BEAKER) (test code = 10.5 GM/DL 12.0-15.0 L 410) HEMATOCRIT (BEAKER) (test code = 34.5 % 36.0-45.0 L 411) MEAN CORPUSCULAR VOLUME (BEAKER) 93.4 fL 82.0-99.0 (test code = 753) MEAN CORPUSCULAR HEMOGLOBIN 28.4 pg 27.0-33.0 (BEAKER) (test code = 751) MEAN CORPUSCULAR HEMOGLOBIN CONC 30.4 GM/DL 32.0-36.0 L (BEAKER) (test code = 752) RED CELL DISTRIBUTION WIDTH 15.7 % 10.3-14.2 H (BEAKER) (test code = 412) PLATELET COUNT (BEAKER) (test 376 K/CU MM 150-430 code = 756) MEAN PLATELET VOLUME (BEAKER) 8.4 fL 6.5-10.5 (test code = 754) NUCLEATED RED BLOOD CELLS 1 /100 WBC 0-0 H (BEAKER) (test code = 413) NEUTROPHILS RELATIVE PERCENT 88 % (BEAKER) (test code = 429) LYMPHOCYTES RELATIVE PERCENT 8 % (BEAKER) (test code = 430) MONOCYTES RELATIVE PERCENT 3 % (BEAKER) (test code = 431) EOSINOPHILS RELATIVE PERCENT 0 % (BEAKER) (test code = 432) BASOPHILS RELATIVE PERCENT 0 % (BEAKER) (test code = 437) NEUTROPHILS ABSOLUTE COUNT 11.90 K/ L 1.80-8.00 H (BEAKER) (test code = 670) LYMPHOCYTES ABSOLUTE COUNT 1.03 K/ L 1.48-4.50 L (BEAKER) (test code = 414) MONOCYTES ABSOLUTE COUNT (BEAKER) 0.45 K/ L 0.00-1.30 (test code = 415) EOSINOPHILS ABSOLUTE COUNT 0.07 K/ L 0.00-0.50 (BEAKER) (test code = 416) BASOPHILS ABSOLUTE COUNT (BEAKER) 0.05 K/ L 0.00-0.20 (test code = 417) [id number](MANUAL DIFFERENTIAL)2016-12-12 14:39:00 Test Item Value Reference Range Interpretation Comments TOTAL COUNTED (BEAKER) (test code = 1351) WBC MORPHOLOGY (BEAKER) (test code = Normal 487) PLT MORPHOLOGY (BEAKER) (test code = Normal 486) RBC MORPHOLOGY (BEAKER) (test code = Normal 762) [id number] 08:09:00 Test Item Value Reference Range Interpretation Comments MAGNESIUM (BEAKER) (test code = 1.4 mg/dL 1.6-2.6 L 627) BASIC METABOLIC [id number] 08:09:00 Test Item Value Reference Range Interpretation Comments SODIUM (BEAKER) 137 meq/L 136-145 (test code = 381) POTASSIUM (BEAKER) 4.1 meq/L 3.5-5.1 (test code = 379) CHLORIDE (BEAKER) 98 meq/L 98-107 (test code = 382) CO2 (BEAKER) (test 18 meq/L 22-29 L code = 355) BLOOD UREA NITROGEN 14 mg/dL 7-21 ([facility]) (test code = 354) CREATININE ([facility]) 0.98 mg/dL 0.57-1.25 (test code = 358) GLUCOSE RANDOM 287 mg/dL 70-105 H ([facility]) (test code = 652) CALCIUM ([facility]) 8.9 mg/dL 8.4-10.2 (test code = 697) EGFR ([facility]) (test 85 mL/min/1.73 ESTIMA MAGDALENO GFR IS code = 1092) sq m NOT ACCURATE CREATININE CLEARANCE IN PREDICTING GLOMERULAR FILTRATION RATE . ESTIMATED GFR I S NOT APPLICABLE FOR DIALYSIS PATIEN TS. POCT-GLUCOSE [id number] 15:20:00 Test Item Value Reference Range Interpretation Comments POC-GLUCOSE METER 212 mg/dL 70-110 H TESTED AT [place] [address] ([facility]) (test code = [place] [address]) [address] POCT-GLUCOSE [id number] 13:55:00 Test Item Value Reference Range Interpretation Comments POC-GLUCOSE METER 49 mg/dL 70-110 L Notified Ciro Polanco MD/TESTED AT ([facility]) (test code = [place] [address]) [facility] [address] POCT-GLUCOSE [id number] 12:02:00 Test Item Value Reference Range Interpretation Comments POC-GLUCOSE METER 386 mg/dL 70-110 H Notified Ciro Polanco MD/TESTED ([facility]) (test code = AT [place] [address]) [facility] 7[address] 0 POCT-GLUCOSE [id number] 08:21:00 Test Item Value Reference Range Interpretation Comments POC-GLUCOSE METER 173 mg/dL 70-110 H TESTED AT [place] [address] ([facility]) (test code = [place] [facility] 1538) [address] POCT-GLUCOSE [id number] 23:54:00 Test Item Value Reference Range Interpretation Comments POC-GLUCOSE METER 186 mg/dL 70-110 H TESTED AT [place] [address] ([facility]) (test code = [place] [facility] 1538) [address] POCT-GLUCOSE [id number] 20:57:00 Test Item Value Reference Range Interpretation Comments POC-GLUCOSE METER 292 mg/dL 70-110 H TESTED AT [facility] 6720 (BEAKER) (test code = [place] 1538) [address] POCT-GLUCOSE [id number] 18:30:00 Test Item Value Reference Range Interpretation Comments POC-GLUCOSE METER > mg/dL 70-110 HH OUTSIDE ME ASURING (BEAKER) (test code RANGENot ified RN or MD = 2783) Patient refused repeat test/TESTED AT [place] [id number] [address] POCT-GLUCOSE [id number] 12:56:00 Test Item Value Reference Range Interpretation Comments POC-GLUCOSE METER 233 mg/dL 70-[address] [facility] 6720 (BEAKER) (test code = [place] [facility] 1538) [address] BLOOD [id number] 10:00:00 Test Item Value Reference Range Interpretation Comments CULTURE (BEAKER) (test No growth in 5 days code = 1095) BLOOD [id number] 10:00:00 Test Item Value Reference Range Interpretation Comments CULTURE (BEAKER) (test No growth in 5 days code = 1095) CBC W/PLT COUNT & AUTO [id number] 09:19:00 Test Item Value Reference Range Interpretation Comments WHITE BLOOD CELL COUNT (BEAKER) 10.9 K/ L 4.0-10.0 H (test code = 775) RED BLOOD CELL COUNT (BEAKER) 3.65 M/ L 4.00-5.00 L (test code = 761) HEMOGLOBIN (BEAKER) (test code = 9.9 GM/DL 12.0-15.0 L 410) HEMATOCRIT (BEAKER) (test code = 32.7 % 36.0-45.0 L 411) MEAN CORPUSCULAR VOLUME (BEAKER) 89.5 fL 82.0-99.0 (test code = 753) MEAN CORPUSCULAR HEMOGLOBIN 27.2 pg 27.0-33.0 (BEAKER) (test code = 751) MEAN CORPUSCULAR HEMOGLOBIN CONC 30.4 GM/DL 32.0-36.0 L (BEAKER) (test code = 752) RED CELL DISTRIBUTION WIDTH 14.8 % 10.3-14.2 H (BEAKER) (test code = 412) PLATELET COUNT (BEAKER) (test 357 K/CU MM 150-430 code = 756) MEAN PLATELET VOLUME (BEAKER) 8.8 fL 6.5-10.5 (test code = 754) NUCLEATED RED BLOOD CELLS 0 /100 WBC 0-0 (BEAKER) (test code = 413) NEUTROPHILS RELATIVE PERCENT 60 % (BEAKER) (test code = 429) LYMPHOCYTES RELATIVE PERCENT 29 % (BEAKER) (test code = 430) MONOCYTES RELATIVE PERCENT 9 % (BEAKER) (test code = 431) EOSINOPHILS RELATIVE PERCENT 3 % (BEAKER) (test code = 432) BASOPHILS RELATIVE PERCENT 0 % (BEAKER) (test code = 437) NEUTROPHILS ABSOLUTE COUNT 6.50 K/ L 1.80-8.00 (BEAKER) (test code = 670) LYMPHOCYTES ABSOLUTE COUNT 3.15 K/ L 1.48-4.50 (BEAKER) (test code = 414) MONOCYTES ABSOLUTE COUNT (BEAKER) 0.94 K/ L 0.00-1.30 (test code = 415) EOSINOPHILS ABSOLUTE COUNT 0.27 K/ L 0.00-0.50 (BEAKER) (test code = 416) BASOPHILS ABSOLUTE COUNT (BEAKER) 0.02 K/ L 0.00-0.20 (test code = 417) [id number] 07:34:00 Test Item Value Reference Range Interpretation Comments MAGNESIUM (BEAKER) (test code = 1.4 mg/dL 1.6-2.6 L 627) BASIC METABOLIC [id number] 07:34:00 Test Item Value Reference Range Interpretation Comments SODIUM (BEAKER) 133 meq/L 136-145 L (test code = 381) POTASSIUM (BEAKER) 4.6 meq/L 3.5-5.1 (test code = 379) CHLORIDE (BEAKER) 101 meq/L 98-107 (test code = 382) CO2 (BEAKER) (test 24 meq/L 22-29 code = 355) BLOOD UREA NITROGEN 15 mg/dL 7-21 (BEAKER) (test code = 354) CREATININE (BEAKER) 0.68 mg/dL 0.57-1.25 (test code = 358) GLUCOSE RANDOM 284 mg/dL 70-105 H (BEAKER) (test code = 652) CALCIUM (BEAKER) 9.1 mg/dL 8.4-10.2 (test code = 697) EGFR (BEAKER) (test 129 mL/min/1.73 ESTIM ATED GFR IS code = 1092) sq m NOT ACCURATE CREATININE CLEARANCE IN PREDICTING GLOMERULAR FILTRATION RATE . ESTIMATED GFR I S NOT APPLICABLE FOR DIALYSIS PATIEN TS. POCT-GLUCOSE [id number] 21:23:00 Test Item Value Reference Range Interpretation Comments POC-GLUCOSE METER 230 mg/dL 70-[address] [facility] 6720 (BEAKER) (test code = [place] 1538) [address] POCT-GLUCOSE [id number] 17:41:00 Test Item Value Reference Range Interpretation Comments POC-GLUCOSE METER 195 mg/dL 70-[address] [facility] 6720 (BEAKER) (test code = [place] 1538) [address] CBC W/PLT COUNT & AUTO [id number] 15:23:00 Test Item Value Reference Range Interpretation Comments WHITE BLOOD CELL COUNT (BEAKER) 12.2 K/ L 4.0-10.0 H (test code = 775) RED BLOOD CELL COUNT (BEAKER) 3.75 M/ L 4.00-5.00 L (test code = 761) HEMOGLOBIN (BEAKER) (test code = 10.3 GM/DL 12.0-15.0 L 410) HEMATOCRIT (BEAKER) (test code = 33.5 % 36.0-45.0 L 411) MEAN CORPUSCULAR VOLUME (BEAKER) 89.5 fL 82.0-99.0 (test code = 753) MEAN CORPUSCULAR HEMOGLOBIN 27.5 pg 27.0-33.0 (BEAKER) (test code = 751) MEAN CORPUSCULAR HEMOGLOBIN CONC 30.7 GM/DL 32.0-36.0 L (BEAKER) (test code = 752) RED CELL DISTRIBUTION WIDTH 14.7 % 10.3-14.2 H (BEAKER) (test code = 412) PLATELET COUNT (BEAKER) (test 354 K/CU MM 150-430 code = 756) MEAN PLATELET VOLUME (BEAKER) 8.8 fL 6.5-10.5 (test code = 754) NUCLEATED RED BLOOD CELLS 0 /100 WBC 0-0 (BEAKER) (test code = 413) NEUTROPHILS RELATIVE PERCENT 73 % (BEAKER) (test code = 429) LYMPHOCYTES RELATIVE PERCENT 18 % (BEAKER) (test code = 430) MONOCYTES RELATIVE PERCENT 8 % (BEAKER) (test code = 431) EOSINOPHILS RELATIVE PERCENT 1 % (BEAKER) (test code = 432) BASOPHILS RELATIVE PERCENT 0 % (BEAKER) (test code = 437) NEUTROPHILS ABSOLUTE COUNT 8.95 K/ L 1.80-8.00 H (BEAKER) (test code = 670) LYMPHOCYTES ABSOLUTE COUNT 2.13 K/ L 1.48-4.50 (BEAKER) (test code = 414) MONOCYTES ABSOLUTE COUNT (BEAKER) 0.95 K/ L 0.00-1.30 (test code = 415) EOSINOPHILS ABSOLUTE COUNT 0.16 K/ L 0.00-0.50 (BEAKER) (test code = 416) BASOPHILS ABSOLUTE COUNT (BEAKER) 0.01 K/ L 0.00-0.20 (test code = 417) [id number](MANUAL DIFFERENTIAL)2016-12-09 15:23:00 Test Item Value Reference Range Interpretation Comments TOTAL COUNTED (BEAKER) (test code = 1351) WBC MORPHOLOGY (BEAKER) (test code = Normal 487) PLT MORPHOLOGY (BEAKER) (test code = Normal 486) RBC MORPHOLOGY (BEAKER) (test code = Normal 762) POCT-GLUCOSE [id number] 11:49:00 Test Item Value Reference Range Interpretation Comments POC-GLUCOSE METER 370 mg/dL 70-110 H Notified R N or MD (BEAKER) (test code = Patien t refused repeat 1538) test/TESTED AT [address] [address] POCT-GLUCOSE [id number] 11:45:00 Test Item Value Reference Range Interpretation Comments POC-GLUCOSE METER 424 mg/dL 70-110 HH Notified R N or MD (BEAKER) (test code = Patien t refused repeat 1538) test/TESTED AT [facility] [address] [place] [address] CF RESPIRATORY [id number] 10:46:00 Test Item Value Reference Range Interpretation Comments CULTURE (BEAKER) PSEUDOMONAS A 4+ Pseudomo viki (test code = 1095) AERUGINOSA aeruginos a Amikacin (test code Susceptible 0-16 S = 1) , Resistant <0 or >16 Aztreonam (test Susceptible 0-8 , S code = 32) Resistant <0 or >8 Cefepime (test code Susceptible 0-8 , S = 51) Resistant <0 or >8 Ceftazidime (test Susceptible 0-8 , S code = 27) Resistant <0 or >8 Ciprofloxacin (test Susceptible 0-1 , S code = 7) Resistant <0 or >1 Doripenem (test Susceptible 0-2 , S code = 100) Resistant <0 or >2 Gentamicin (test Susceptible 0-4 , S code = 18) Resistant <0 or >4 Imipenem (test code Susceptible 0-2 , R = 19) Resistant <0 or >2 Levofloxacin (test Susceptible 0-2 , S code = 22) Resistant <0 or >2 Meropenem (test Susceptible 0-2 , S code = 34) Resistant <0 or >2 Piperacillin (test Susceptible 0-16 R code = 24) , Resistant <0 or >16 Piperacillin + Susceptible 0-16 S Tazobactam (test , Resistant <0 or code = 29) >16 Tobramycin (test Susceptible 0-4 , S code = 25) Resistant <0 or >4 CULTURE (BEAKER) PSEUDOMONAS A 4+ Pseudomo viki (test code = 51778) AERUGINOSA aerugino saof a second type Amikacin (test code Susceptible 0-16 S = 1) , Resistant <0 or >16 Aztreonam (test Susceptible 0-8 , S code = 32) Resistant <0 or >8 Cefepime (test code Susceptible 0-8 , S = 51) Resistant <0 or >8 Ceftazidime (test Susceptible 0-8 , S code = 27) Resistant <0 or >8 Ciprofloxacin (test Susceptible 0-1 , S code = 7) Resistant <0 or >1 Doripenem (test Susceptible 0-2 , R code = 100) Resistant <0 or >2 Gentamicin (test Susceptible 0-4 , S code = 18) Resistant <0 or >4 Imipenem (test code Susceptible 0-2 , R = 19) Resistant <0 or >2 Levofloxacin (test Susceptible 0-2 , R code = 22) Resistant <0 or >2 Meropenem (test Susceptible 0-2 , S code = 34) Resistant <0 or >2 Piperacillin (test Susceptible 0-16 S code = 24) , Resistant <0 or >16 Piperacillin + Susceptible 0-16 S Tazobactam (test , Resistant <0 or code = 29) >16 Tobramycin (test Susceptible 0-4 , S code = 25) Resistant <0 or >4 CULTURE (AKER) PSEUDOMONAS A Pseudomonas (test code = 41349) AERUGINOSA aerugino saof a third type Amikacin (test code Susceptible 0-16 S = 1) , Resistant <0 or >16 Aztreonam (test Susceptible 0-8 , S code = 32) Resistant <0 or >8 Cefepime (test code Susceptible 0-8 , S = 51) Resistant <0 or >8 Ceftazidime (test Susceptible 0-8 , S code = 27) Resistant <0 or >8 Ciprofloxacin (test Susceptible 0-1 , R code = 7) Resistant <0 or >1 Doripenem (test Susceptible 0-2 , R code = 100) Resistant <0 or >2 Gentamicin (test Susceptible 0-4 , S code = 18) Resistant <0 or >4 Imipenem (test code Susceptible 0-2 , R = 19) Resistant <0 or >2 Levofloxacin (test Susceptible 0-2 , R code = 22) Resistant <0 or >2 Meropenem (test Susceptible 0-2 , R code = 34) Resistant <0 or >2 Piperacillin (test Susceptible 0-16 R code = 24) , Resistant <0 or >16 Piperacillin + Susceptible 0-16 S Tazobactam (test , Resistant <0 or code = 29) >16 Tobramycin (test Susceptible 0-4 , S code = 25) Resistant <0 or >4 3+ Normal respiratory derick presentPOCT-GLUCOSE [id number] 10:07:00 Test Item Value Reference Range Interpretation Comments POC-GLUCOSE METER 112 mg/dL 70-[address] [facility] [address] ([facility]) (test code = [place] 1538) [address] [id number] 07:09:00 Test Item Value Reference Range Interpretation Comments MAGNESIUM (BEAKER) (test code = 1.6 mg/dL 1.6-2.6 627) BASIC METABOLIC [id number] 07:09:00 Test Item Value Reference Range Interpretation Comments SODIUM (BEAKER) 135 meq/L 136-145 L (test code = 381) POTASSIUM (BEAKER) 4.0 meq/L 3.5-5.1 (test code = 379) CHLORIDE (BEAKER) 101 meq/L 98-107 (test code = 382) CO2 (BEAKER) (test 27 meq/L 22-29 code = 355) BLOOD UREA NITROGEN 8 mg/dL 7-21 (BEAKER) (test code = 354) CREATININE (AKER) 0.55 mg/dL 0.57-1.25 L (test code = 358) GLUCOSE RANDOM 133 mg/dL 70-105 H ([facility]) (test code = 652) CALCIUM (BEAKER) 8.8 mg/dL 8.4-10.2 (test code = 697) EGFR (AKER) (test 165 mL/min/1.73 ESTIM ATED GFR IS code = 1092) sq m NOT ACCURATE CREATININE CLEARANCE IN PREDICTING GLOMERULAR FILTRATION RATE . ESTIMATED GFR I S NOT APPLICABLE FOR DIALYSIS PATIEN TS. POCT-GLUCOSE [id number] 20:59:00 Test Item Value Reference Range Interpretation Comments POC-GLUCOSE METER 294 mg/dL 70-110 H TESTED AT [place] [address] ([facility]) (test code = PAUL Tanner [facility] 1538) [id number] POCT-GLUCOSE [id number] 18:18:00 Test Item Value Reference Range Interpretation Comments POC-GLUCOSE METER 238 mg/dL 70-110 H TESTED AT [place] [address] ([facility]) (test code = PAUL Tanner [facility] 1538) [address] AFB CULTURE + [id number] 17:58:00 Test Item Value Reference Range Interpretation Comments CULTURE ([facility]) (test No acid-fast bacilli code = 1095) isolated in 42 days AFB SMEAR ([facility]) No acid fast bacilli (test code = 994) seen SPIROMETRY (IN CLINIC)2015-06-14 21:42:43Marco Smith MD 06/14/2015 4:42 PMPlease see graphic report for final interpretation. Date of testDate of test: 05/07/1587SRE8BGB9: 1.33 LFEV1 % EXP: 43 %FVCFVC: 2.06 LFVC % EXPECT: 58 %FEV1 / FVCFEV1 / FVC: 0.67 %FEV1 / FVC % EXP: 78 %FEFFEF 25-75%: 0.7 l/minFEF % EXPEC: 20 % Marco Smith MD - 06/14/2015 4:42 PM CDTPlease see graphic report for final interpretation.Date of testDate of test: 05/07/1575SIU6PCJ7: 1.33 LFEV1 % EXP: 43 %FVCFVC: 2.06 LFVC % EXPECT: 58 %FEV1 / FVCFEV1 / FVC: 0.67 %FEV1 / FVC % EXP: 78 %FEFFEF 25-75%: 0.7 l/minFEF % EXPEC: 20 %[facility]
[2021-10-15] MEDS ORDERED: KETOROLAC 30 MG/ML INJ ONE (06:47)
--- NOTE | 2021-10-15 07:40 | EDPHYS ---
Physician Documentation [facility] Name: Ester Hagen Age: 31 yrs Sex: Female : 1990 Arrival Date: 10/15/2021 Time: 06:21 Bed 19 Private MD: ED Physician Iván Monroy HPI: 10/15 06:46 This 31 yrs old Black Female presents to ER via Ambulatory with complaints of Wrist jr8 Pain. 06:46 The patient or guardian reports decreased range of motion, pain, tenderness. The jr8 complaints affect the left wrist diffusely. Onset: The symptoms/episode began/occurred suddenly, 1 week(s) ago. Modifying factors: The symptoms are alleviated by nothing, the symptoms are aggravated by movement. Associated signs and symptoms: The patient has no apparent associated signs or symptoms. The patient has not experienced similar symptoms in the past. The patient has not recently seen a physician. This is a 31-year-old female that presented to the emergency room with complaints of diffuse left wrist pain that started about a week and a half ago. Unknown as to cause of the wrist pain. Denies any other associated symptoms at this time . 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 tw Historical: - Allergies: 06:27 Amikacin; tw 06:27 Betadine; tw 06:27 Decadron; tw 06:27 Iodinated Contrast Media - IV Dye; tw - Home Meds: 06:27 albuterol sulfate 2.5 mg/0.5 mL Inhl nebu 0.5 mL every 6 hours [Active]; diltiazem HCl tw5 60 mg Oral cp12 1 cap 2 times per day [Active]; ondansetron HCl 4 mg Oral tab 2 tabs 3 times per day [Active]; Humalog Mix 75-25 100 unit/mL (75-25) Sub-Q susp [Active]; Zyrtec 10 mg Oral cap [Active]; dornase brittani 1 mg inhalation once daily for Respiratory Cystic Fibrosis [Active]; zolpidem 10 mg Oral tab 1 tab once daily [Active]; - PMHx: 06:27 Asthma; CYSTIC FIBROSIS; Diabetes - IDDM; tw5 - Immunization history:: Adult Immunizations up to date. - Social history:: Smoking status: Patient denies any tobacco usage or history of. ROS: 06:46 Eyes: Negative for injury, pain, redness, and discharge, ENT: Negative for injury, jr8 pain, and discharge, Neck: Negative for injury, pain, and swelling, Cardiovascular: Negative for chest pain, palpitations, and edema, Respiratory: Negative for shortness of breath, cough, wheezing, and pleuritic chest pain, Abdomen/GI: Negative for abdominal pain, nausea, vomiting, diarrhea, and constipation, Back: Negative for injury and pain, Skin: Negative for injury, rash, and discoloration, Neuro: Negative for headache, weakness, numbness, tingling, and seizure. 06:46 MS/extremity: Positive for decreased range of motion, pain, tenderness, of the left wrist. Exam: 06:46 Constitutional: This is a well developed, well nourished patient who is awake, alert, jr8 and in no acute distress. Cardiovascular: Regular rate and rhythm with a normal S1 and S2. No gallops, murmurs, or rubs. Normal PMI, no JVD. No pulse deficits. Respiratory: Lungs have equal breath sounds bilaterally, clear to auscultation and percussion. No rales, rhonchi or wheezes noted. No increased work of breathing, no retractions or nasal flaring. Skin: Warm, dry with normal turgor. Normal color with no rashes, no lesions, and no evidence of cellulitis. Neuro: Awake and alert, GCS 15, oriented to person, place, time, and situation. Cranial nerves II-XII grossly intact. Motor strength 5/5 in all extremities. Sensory grossly intact. 06:46 Musculoskeletal/extremity: Extremities: grossly normal except: noted in the left wrist: Patient has moderate pain and tenderness to the dorsal aspect of the right wrist. Full range of motion intact but with pain. Normal sensation with 2+ radial pulses present. No external sign of trauma noted, no erythema, no bogginess, no swelling. Remainder of unaffected extremities unremarkable.. Vital Signs: 06:26 BP 113 / 88; Pulse 113; Resp 18; Temp 98.9; Pulse Ox 99% on R/A; Weight 47.63 kg; tw5 Height 5 ft. 1 in. (154.94 cm); Pain 9/10; 07:40 BP 121 / 68; Pulse 103; Resp 17; Pulse Ox 99% on R/A; tw2 06:26 Body Mass Index 19.84 (47.63 kg, 154.94 cm) tw5 Procedures: 07:35 Splinting: Splint applied to left wrist using wrist splint, applied by nurse. Examined jr8 by me, post splint application: neurovascular intact, 2+ distal pulses palpable, brisk capillary refill noted, Patient tolerated well. MDM: 06:32 Patient medically screened. jr8 07:35 Data reviewed: vital signs, nurses notes, radiologic studies, plain films. Data jr8 interpreted: Pulse oximetry: on room air is 99 %. Interpretation: normal. Counseling: I had a detailed discussion with the patient and/or guardian regarding: the historical points, exam findings, and any diagnostic results supporting the discharge/admit diagnosis, radiology results, the need for outpatient follow up, a orthopedic surgeon, to return to the emergency department if symptoms worsen or persist or if there are any questions or concerns that arise at home. 07:35 Differential diagnosis: closed fracture, contusion, tendonitis, arthritis, sprain. ED jr8 course: No identified ulcers abnormality on plain film. We will put her in wrist splint and have her follow-up with orthopedics. We will start her on NSAID based products for the time being to see if she has improvement. Patient is to come back if she were to worsening point time.. 10/15 06:43 Order name: XRAY Wrist LEFT 3 view jr8 10/15 07:35 Order name: Wrist Splint; Complete Time: 07:38 jr8 Administered Medications: 06:48 Drug: Ketorolac 15 mg Route: IM; Site: right gluteus; kd3 07:38 Follow up: Response: No adverse reaction; Pain is decreased tw2 Disposition Summary: 10/15/21 07:39 Discharge Ordered Location: Home jr8 Problem: new jr8 Symptoms: have improved jr8 Condition: Stable jr8 Diagnosis - Sprain of other part of left wrist and hand jr8 Followup: jr8 - With: Golden Hagen MD - When: 1 week - Reason: Recheck today's complaints, Continuance of care, Re-evaluation by your physician Discharge Instructions: - Wrist Sprain, Adult jr8 - Discharge Summary Sheet tw2 Forms: - Medication Reconciliation Form jr8 - Thank You Letter jr8 - Antibiotic Education jr8 - Work release form tw2 - Prescription Opioid Use jr8 Prescriptions: - meloxicam 15 mg Oral tablet - take 1 tablet by ORAL route once daily As needed; 20 tablet; Refills: 0, jr8 Product Selection Permitted Signatures: Dispatcher [employer] Andres Mark PA PA jr8 Pily Perry tw5 Colette Marin RN RN kd3 Amanda Black RN tw2
--- NOTE | 2021-10-15 07:40 | ER ---
Nurse's Notes [facility] Name: Ester Hagen Age: 31 yrs Sex: Female : 1990 Arrival Date: 10/15/2021 Time: 06:21 Bed 19 Private MD: Diagnosis: Sprain of other part of left wrist and hand Presentation: 10/15 06:26 Chief complaint: Patient states: "I have been having pain in my wrist for about a week tw5 and a half, and it is getting worse. I woke up out of my sleep because the pain was so bad and I feel like I cannot move it.". Coronavirus screen: Vaccine status: Patient reports receiving the 2nd dose of the covid vaccine. Glam[employer] Travel. Ebola Screen: Patient negative for fever greater than or equal to 101.5 degrees Fahrenheit, and additional compatible Ebola Virus Disease symptoms Patient denies exposure to infectious person. Patient denies travel to an Ebola-affected area in the 21 days before illness onset. Initial Sepsis Screen: Does the patient meet any 2 criteria? No. Patient's initial sepsis screen is negative. Does the patient have a suspected source of infection? No. Patient's initial sepsis screen is negative. Risk Assessment: Do you want to hurt yourself or someone else? Patient reports no desire to harm self or others. Onset of symptoms was October 08, 2021. 06:26 Method Of Arrival: Ambulatory 06:26 Acuity: DEDRA 4 tw5 Triage Assessment: 06:27 General: Appears uncomfortable, Behavior is calm, cooperative, appropriate for age. tw5 Pain: Complains of pain in dorsal aspect of left wrist and palmar aspect of left wrist Pain currently is 9 out of 10 on a pain scale. 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 Historical: - Allergies: 06:27 Amikacin; 06:27 Betadine; 06:27 Decadron; 06:27 Iodinated Contrast Media - IV Dye; - Home Meds: 06:27 albuterol sulfate 2.5 mg/0.5 mL Inhl nebu 0.5 mL every 6 hours [Active]; diltiazem HCl 60 mg Oral cp12 1 cap 2 times per day [Active]; ondansetron HCl 4 mg Oral tab 2 tabs 3 times per day [Active]; Humalog Mix 75-25 100 unit/mL (75-25) Sub-Q susp [Active]; Zyrtec 10 mg Oral cap [Active]; dornase brittani 1 mg inhalation once daily for Respiratory Cystic Fibrosis [Active]; zolpidem 10 mg Oral tab 1 tab once daily [Active]; - PMHx: 06:27 Asthma; CYSTIC FIBROSIS; Diabetes - IDDM; tw5 - Immunization history:: Adult Immunizations up to date. - Social history:: Smoking status: Patient denies any tobacco usage or history of. Screenin:36 Abuse screen: Denies threats or abuse. Denies injuries from another. Nutritional kd3 screening: No deficits noted. Tuberculosis screening: No symptoms or risk factors identified. Fall Risk None identified. Assessment: 07:44 Reassessment: Patient appears in no apparent distress at this time. Patient and/or tw2 family updated on plan of care and expected duration. Pain level reassessed. Patient is alert, oriented x 3, equal unlabored respirations, skin warm/dry/pink. provider at bedside with results at this time. Vital Signs: 06:26 BP 113 / 88; Pulse 113; Resp 18; Temp 98.9; Pulse Ox 99% on R/A; Weight 47.63 kg; tw5 Height 5 ft. 1 in. (154.94 cm); Pain 9/10; 07:40 BP 121 / 68; Pulse 103; Resp 17; Pulse Ox 99% on R/A; tw2 06:26 Body Mass Index 19.84 (47.63 kg, 154.94 cm) tw5 ED Course: 06:21 Patient arrived in ED. ja2 06:27 Triage completed. tw5 06:27 Arm band placed on right wrist. tw5 06:32 Andres Barnes PA is PHCP. jr8 06:32 Iván Monroy MD is Attending Physician. jr8 06:35 Colette Marin, JORDON is Primary Nurse. kd3 06:36 Patient has correct armband on for positive identification. Bed in low position. Call kd3 light in reach. Side rails up X 1. 07:01 XRAY Wrist LEFT 3 view In Process Unspecified. EDMS 07:17 Primary Nurse role handed off by Colette Marin, RN tw2 07:17 Amanda Black, RN is Primary Nurse. tw2 07:38 Golden Hagen MD is Referral Physician. jr8 07:40 No provider procedures requiring assistance completed. Patient did not have IV access tw2 during this emergency room visit. Administered Medications: 06:48 Drug: Ketorolac 15 mg Route: IM; Site: right gluteus; kd3 07:38 Follow up: Response: No adverse reaction; Pain is decreased tw2 Outcome: 07:39 Discharge ordered by MD. jr8 07:50 Discharged to home ambulatory. tw2 07:50 Condition: stable 07:50 Discharge instructions given to patient, Instructed on discharge instructions, follow up and referral plans. medication usage, CMS checks Demonstrated understanding of instructions, follow-up care, medications, cms checks Prescriptions given X 1. 07:50 Patient left the ED. tw2 Signatures: Dispatcher [employer] EDMS Andres Barnes PA PA jr8 Amanda Black, RN RN tw2 Tere Saab Tiffany tw5 Colette Marin, RN RN kd3
[2021-10-15 08:16] VITALS: TEMP 98.9; O2SAT 99
[2021-10-15 08:18] VITALS: BP 121/68
--- NOTE | 2021-10-15 08:41 | RAD REPORT ---
EXAM DESCRIPTION: RAD - Wrist Left 3 View - 10/15/2021 7:01 am CLINICAL HISTORY: PAIN Pain COMPARISON: Wrist Left 3 View dated 12/12/2018 FINDINGS: Mild radiocarpal arthritic changes are present. Soft tissue swelling is seen along the lat eral aspect of the hand and wrist. No acute fracture or dislocation seen. Prominent atherosclerosis for age evident. IMPRESSION: Soft tissue swelling is seen without fracture. Prominent atherosclerosis is evident for age.
== END 2021-10-15 07:50 | disposition home or self-care (01) ==
LOC: ER 06:18
DX: S63.8X2A Sprain of other part of left wrist and hand, initial encounter (principal); E11.9 Type 2 diabetes mellitus without complications; Z88.8 Allergy status to other drugs, medicaments and biological substances; Z91.041 Radiographic dye allergy status; Z91.048 Other nonmedicinal substance allergy status
CPT/HCPCS: 96372; 99283

== ENCOUNTER 2021-10-21 10:32 | Emergency (ER) | payer OTHER ==
--- OUTSIDE RECORDS SUMMARY | 2021-10-21 11:03 | XMS REPORT | Continuity of Care Document ---
:1990 Author Organization [facility] t Address [address] [place] [address] Care Team Providers Name Role Phone PREGIBRANS Primary Care Physician Unavailable Eligio SOLORZANO Attending Clinician ELIGIO Attending Clinician Unavailable Nurse, [facility] Attending Clinician Unavailable LUIS Attending Clinician Unavailable JOE Attending Clinician Unavailable Luis STAPLETON Attending Clinician aSra RAMIREZ Attending Clinician Unavailable Joe PUENTES Attending Clinician ANTONI Attending Clinician Unavailable Sara FORMAN Attending Clinician Unavailable ADDISON RAINEY Attending Clinician Unavailable Ivan Ramirez DO Attending Clinician John Paul Morgan MD Attending Clinician Alexy STAPLETON Attending [...] Policy Number Effective Date Expiration Date S [facility] STAR [id number] 2014 PLUS 00:00:00 COMMUNITY PLAN [id number] 2014 [facility] 00:00:00 BEHAVIORAL HEALTH [id number] [facility] [id number] 2014 2014 00:00:00 00:00:00 [facility]-MEDICA[facility] - [id number] MEDICAID [facility] STAR [id number] 2011 PLAN 00:00:00 [employer] NON-UNITED [id number] 2011 STAR 00:00:00 Problems Condition Condition Condition Status Onset Resolution Last Treating Co mments Source Name Details Category Date Date Treatment Clinician Date Anxiety Anxiety Disease Active Last [facility] 3[facility]15 [facility] 00:00: t & Plan: of 00 [...] Tachycardi Tachycardi Disease Active [facility] 07-24 College 00:00: of 00 Medicin e Sleep-rela Sleep-rela Disease Active [facility] hypoventil hypoventil 00:00: t & Plan: [...] etting change; none Hypoxemia Hypoxemia Disease Active [facility] 8 [facility] 00:[facility]: t & Plan: of 00 Formattin Medicin g of this e note might be different from the original. Sec to lung disease, will need NPO Dysfunctio Dysfunctio Disease Active Last Jane greco ns ns [facility] associated associated 00:00: t & Plan: [...] sleep Poor sleep Disease Active Zander Lara [facility] hygiene [facility] t & Plan: of 00 Formattin Medicin g of this e note might be different from the original. Counseled on sleep hygiene practice Chronic Chronic Disease Active [facility] sinusitis sinusitis 11-22 [facility] 00:00: of 00 Medicin e High risk High risk Disease Active Overview: [facility] medication medication 11-10 [facility] use use 00:00: g of this [...] Active Last B [facility] d d 5-24 [facility] [place] headaches headaches 00:00: t & Plan: o f 00 Formattin Medicin g of this e note might be different from the original. Better on nortrypty line Depo-Prove Depo-Prove Disease Active U nivers ra ra 3-22 [place] norma status norma status 00 Me dical Branch Low back Low back Disease Active 2015-10 Last [facility] r pain pain 0-26 [facility] [place] 00:00: t & Plan: of 00 Formattin Medicin g of this e note might be different from the original. Persisten t, due to coughing. Currentl y using tramadol. Previous success with lidoderm patch in the hospital. Will order through insurance . 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..] Vitamin D Vitamin D Disease Active Overview: [facility] insufficie insufficie 8-03/2014 Co llege ncy ncy 00:00: Vitamin of 00 D: Medicin 18.41/201 e 4 DEXA scan:Left femoral neck bone mineral density: 0.751 G/cm2, Z-score is -0.9. Left hip total bone mineral density: 0.923 G/cm2, Z-score is -0.2. Lumbar spine total bone mineral density: 0.934 Gm/cm2, Z-score is -0.8. Last Assessmen t & Plan: Repeat Vitamin D level ABPA ABPA Disease Active [facility] (allergic (allergic 04-07 [facility] bronchopul bronchopul 00:00: t & Plan: of monary monary 00 Formattin Medicin aspergillo aspergillo g of this e sis) sis) note (HCCode) (HCCode) might be different from the original. Will DC vfend and increase orkambi to full doseConti nue prednison e 10mg vascular vascular Disease Active [facility] [place] 6-12 College 00:00: of 00 Medicin e Insomnia Insomnia Disease Active [facility] 2-06 [facility] 00:00: t & Plan: of 00 Formattin Medicin g of this e note might be different from the original. Improved Cont same Malnutriti Malnutriti Disease Active Last Jane aylor on on 10-26 [facility] College (HCCode) (HCCode) 00:00: t & Plan: of 00 Formattin Medicin g of this e note might be different from the original. Recommend ed trying [employer] Peptide Asthma Asthma Disease Active [facility] 1-16 [facility] [employer] 00:00: t & Plan: of 00 Formattin Medicin g of this e note might be different from the original. Wheezing and coughing attacks more frequent. Pancreatic Pancreatic Disease Active Last B [facility] insufficie insufficie 16 [facility] ncy ncy 00:00: t & Plan: of 00 Formattin Medicin g of this e note might be different from the original. Continue pancreati c enzyme supplemen tation Malabsorpt Malabsorpt Disease Active B [facility] ion ion -16 [place] 00:00: of 00 Medicin e Hx ABPA Hx ABPA Disease Active Overview: [facility] or (allergic (allergic 01-07 Formattin C ollege bronchopul bronchopul 00:00: g of this of monary monary 00 note Medicin aspergillo aspergillo might be e sis) sis) different from the original. Treated several times at [facility] with "pulse steroid doses".Vo riconazol e started 08/[address] scan findingsL ast Assessmen t & Plan: Formattin g of this note might be different from the original. On voriconaz ole. Sensorineu Sensorineu Disease Active Overview : [facility] ral ral 01-07 [facility] hearing hearing 00:00: g of this of loss, loss, 00 note Medicin unspecifie unspecifie might be e d, 2004 d, 2003 different from the original. Has hearing aids. 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 Start [facility] rotating with atOBI Cystic Cystic Disease Active Overview: [facility]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 -17 Genetics Col lege (HCCode) (HCCode) 00:00: : [...] flushed tomorrow. HX HX Disease Active Last [facility] Atypical Atypical 04-10 Assess[facility] Col [facility] mycobacter [...] an option. 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, 3, [place] CF Registry ( Media)Swe at test: 85, 1992, [facility] CF RegistryL ast Assessmen t & [...] CONTRAST 00:00: [place] MEDIA 00 Medical Branch Dye Propensi Active Nausea Univers ty to and/or 01-13 ity of adverse Vomiting 00:00: [place] reaction 00 Medical s Branch Iodinate Propensi Active Nausea Univer s d ty to and/or 01-13 ity of Contrast adverse Vomiting 00:00: [place] Media reaction 00 Medical s Branch Iodine Propensi Active Nausea And [facility] ty to Vomiting 01-13 College adverse 00:00: of reaction 00 Medicin s to e drug DYE Allergy Active N\\T\\V [facility] 01-13 00:00: 00 IODINATE Allergy Active N\\T\\V [facility] D 7-06 CONTRAST 00:00: MEDIA 00 I.V. Dye Propensi Active Vomiting [facility] ty to Only 04-25 College adverse 00:00: of reaction 00 Medicin s to e substanc e IODINE Allergy Active N\\T\\V [facility] AND 04-25 IODIDE 00:00: CONTAINI 00 NG PRODUCTS POVIDONE Allergy Active High Rash [facility] -IODINE 01-14 (WITH 00:00: SOAP) 00 POVIDONE DRUG Active High Rash Univers -IODINE INGREDI 8-20 ity of 00:00: [place] 00 Medical Branch Povidone Propensi Active Rash Jayesh -Iodine ty to 820 [place] adverse 00:00: of reaction 00 Medicin s to e drug AMIKACIN DRUG Active Other-Cmnt Univ ers (BULK) [...] Active Severe Hearing [place] ty to 324 lost College adverse 00:00: Hearing of reaction 00 lostPatie Medic in s to nt stated e drug "Amikacin takes away my hearing." AMIKACIN Allergy Active High Other [facility] 3 00:00: 00 POVIDONE Allergy Active High Rash [facility] -IODINE 01-07 00:00: 00 Povidone Propensi Active Rash [facility] Iodine ty to 3-16 College adverse 00:00: of reaction 00 Medicin s to e drug Dexameth Propensi Active Rash 2012-0 Other [facility] asone ty to 3-16 reaction( College adverse 00:00: s): of reaction 00 Unknown - Medic in s to See e drug commentsT urns redPatien t stated "Decadron makes me turn red."Turn s redPatien t stated "Decadron makes me turn red." DEXAMETH DRUG Active High Unknown-Cmnt Un narcisa ASONE INGREDI 01-07 ity of 00:00: [place] [address] Medical Branch Dexameth Propensi Active Rash Turns Univer s asone ty to 01-07 redPatien ity of adverse 00:00: t stated [place] reaction 00 "Decadron Medic al s makes me Branch turn red." DEXAMETH Allergy Active High Rash [facility] ASONE 01-07 00:00: 00 Social History Social Habit Start Date Stop Date Quantity Comments Source Exposure to Not sure University of SARS-CoV-2 [place] Medical (event) Branch History [facility] University o f Alcohol Comment [place] Med ical Branch History [facility] o f Alcohol Std [place] Medical Drinks Branch History [facility] o f Alcohol Binge [place] Medic al Branch Alcohol intake 2020-11-07 2020-11-07 Current drinker [facility] of 00:00:00 00:00:00 of alcohol Medicine (finding) Tobacco use and 2020-11-07 2020-11-07 Never used [facility] llege of exposure 00:00:00 00:00:00 Medicine History [facility] 2019-12-21 2019-12-21 21 [facility] Education 00:00:00 00:00:00 Medicine History [facility] 2019-05-02 2019-05-02 1 University o f Alcohol Frequency 00:00:00 00:00:00 [facility] edical Branch Sex Ass[birth year] At [birth year] Universit y of 00:00:00 00:00:00 [facility] Smoking Status Start Date Stop Date Source Never smoker [facility] o f Medicine Medications Ordered Filled Start Stop Current Ordering Indication Dosage Frequency Signature Comments Components Source Medication Medication Date Date Medication? Clinician (SIG) Name Name metroNIDAZO 2020-10 Yes [id number] 500mg Take 1 Univers LE 500 mg 2-22 tablet by ity o f tablet 00:00: mouth [place] 00 every 12 Medical (twelve) Branch hours. fluconazole 2020-10- Yes [id number] 150mg Take 1 Univers 150 mg 2-22 12-23 tablet by ity of tablet 00:00: 05:59 [place] 00 :[place] now for 1 Medical dose. Branch valACYclovi 2020-10 Yes [id number] 1g Take 1 Univers r 1 gram 2-21 tablet by ity of tablet 00:00: mouth 2 00 (two) Medical times Branch daily. valACYclovi 2020-10 Yes [id number] 1g Take 1 Univers r 1 gram 2-21 tablet by ity of tablet 00:00: mouth 2 [place] 00 (two) Medical times Branch daily. valACYclovi 2020-10 Yes [id number] 1g Take 1 Univers r 1 gram 2-21 tablet by ity of tablet 00:00: mouth 2 00 (two) Medical times Branch daily. fluconazole 2020-10- Yes [id number] 150mg Take 1 Univers 150 mg 2-21 12-22 tablet by ity of tablet 00:00: 05:59 mouth [place] 00 :00 now for 1 Medical dose. Branch fluconazole 2020-10- Yes [id number] 150mg Take 1 Univers 150 mg 2-21 [...] :00 (two) Medical times Branch daily. valACYclovi 2020-10 No 1g Take 1 Uni vers r 1 gram 0-27 12-21 tablet by ity o f tablet 00:00: 00:00 mouth [place] 00 :00 daily. Medical Branch mupirocin 2 2020-10- No [id number] Apply to Univers % ointment 010-14 area(s) 3 ity of 00:00: 00:00 (three) [place] 00 :00 times Medical daily. Branch mupirocin 2 2020-10- No [id number] Apply to Univers % ointment 010-14 area(s) 3 ity of 00:00: 00:00 (three) [place] 00 :00 times Medical daily. Branch metroNIDAZO 2020- No [id number] 500mg Take 1 Univers LE 500 mg 07-16 tablet by ity of tablet 00:00: 00:00 mouth [place] 00 :00 every 12 Medical (twelve) Branch hours. metroNIDAZO 2020- No [id number] 500mg Take 1 Univers LE 500 mg 07-16 tablet by ity of tablet 00:00: 00:00 mouth [place] 00 :00 every 12 Medical (twelve) Branch hours. sodium 0 Yes 3mL Use 3 mL Univers chloride 7-28 as ity of 0.9 % 15:03: directed [place] nebulizer 40 as needed Medic al solution for Branch Wheezing. tobramycin 0 Yes 300mg 300 mg. Uni vers (KEREN) 300 7-28 ity of mg/5 mL 15:03: [place] nebulizer 40 Medical solution Branch sodium Yes 3mL Use 3 mL Univers chloride 7-28 as ity of 0.9 % 15:03: directed [place] nebulizer 40 as needed Medic al solution for Branch Wheezing. tobramycin 0 Yes 300mg 300 mg. Uni vers (KEREN) 300 7-28 ity of mg/5 mL 15:03: [place] nebulizer 40 Medical solution Branch sodium 2020-0 Yes 3mL Use 3 mL Univers chloride 7-28 as ity of 0.9 % 15:03: directed [place] nebulizer 40 as needed Medic al solution for Branch Wheezing. tobramycin 2020-0 Yes 300mg 300 mg. Uni vers (KEREN) 300 7-28 ity of mg/5 mL 15:03: [place] nebulizer 40 Medical solution Branch mirtazapine Yes [id number] 7.5mg Take 7.5 [facility] (REMERON) 3-15 mg by [place] 7.5 MG 16:19: mouth of tablet 05 nightly. Medicin e diltiazem Yes 1{tbl} Take 1 Tab Jayesh 120 MG TABS 3-15 by mouth [place] 16:19: two times of 05 daily. Medicin e azithromyci Yes [id number] 500mg Take 1 Jayesh n 3-10 Tablet by [place] (ZITHROMAX) 00:00: mouth of 500 MG 00 every Medicin tablet Wednesday, e Wednesday, Wednesday. sodium Yes [id number] 4mL Take 1 [place] [facility] chloride, 3-10 Ampule by [facility] Inhalant, 00:00: nebulizati of (HYPER-ELISSA) 00 on two Medici n 7 % times e nebulizer daily. solution fluticasone Yes [id number] 2{spray 2 Sprays [facility] (FLONASE) 3-10 } by Each [place] 50 MCG/ACT 00:00: Nostril of nasal spray 00 route Medicin daily. e albuterol Yes USE 1 VIAL [facility] (PROVENTIL) 2-26 IN [place] (2.5 mg/3 00:00: NEBULIZER of mL) 0.083% 00 THREE Medicin nebulizer TIMES e solution DAILY NEEDED FOR SHORTNESS OF BREATH omeprazole Yes [id number] TAKE 1 [facility] (PRILOSEC) 2-11 CAPSULE BY Col lege 20 MG 00:00: MOUTH of capsule 00 TWICE Medicin DAILY e Elexacaf-Te Yes [id number] Take 2 [facility] zacaf-Ivaca 1-15 tablets [facility] f&Ivacaf 00:00: by mouth of (TRIKAFTA) 00 every Medicin 100-50-75 & morning e 150 MG TBPK AND 1 tablet (inactive) at bedtime. Take 12 hours apart with fat containing food [place] Yes 120mg Inject 120 [facility] b-gnlm 1-14 mg into College (EMGALITY) 00:00: the skin of 120 MG/ML 00 every 30 Medici n SOAJ days. e Insulin Pen Yes [id number] Use as [facility] Needle (BD 1-13 directed [facility] PEN NEEDLE 00:00: to inject of SAIRA U/F) 00 6 times Medicin 32G X 4 MM daily e MISC diazepam Yes [id number] 2mg Take 1 [place] (VALIUM) 2 1-04 Tablet by [place] MG tablet 00:00: mouth as of 00 needed for Medicin Anxiety. e Before procedure. Vitamin D, 2019-10 Yes [id number] Take 1 [facility] Ergocalcife 2-11 capsule by Co yaniv vang, 1.25 00:00: mouth of MG (22548 00 every 7 Medicin [place]) CAPS days e cetirizine, 2019-10 Yes [id number] TAKE 1 Jayesh ZYRTEC, 10 1-30 TABLET BY [place] MG tablet 00:00: MOUTH of 00 DAILY AND Medicin EXTRA 1/2 e TABLET IF MEDICATION OVER DRIES [facility]ANES levalbutero 2019-10 Yes [id number] INHALE 2 Jayesh l tartrate 1-11 PUFFS BY Colle ge (XOPENEX 00:00: MOUTH of HFA) 45 00 EVERY Medicin MCG/ACT MORNING e AERO AND EVERY inhaler EVENING, MAY TAKE ADDITIONAL 2 PUFFS THROUGHOUT DAY IF NEEDED Nutritional 2019-10 Yes [id number] DRINK ONE [facility] Supplements 1-05 BOTTLE BY Col lege (GLUCERNA 00:00: MOUTH of SHAKE) LIQD 00 TWICE Medicin DAILY e Continuous 2019-10 Yes 1{each} 1 Each [facility] Blood Gluc 0-21 every 10 Colle ge Sensor 00:00: days. of (DEXCOM G6 00 Medicin SENSOR) e MISC Continuous 2019-10 Yes 1{each} 1 Each [facility] Blood Gluc 0-21 continuous Col lege Plate Molder 00:00: . 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 of (DEXCOM G6 00 Medicin TRANSMITTER e ) MISC Pancrelipas 2019-10 Yes [id number] TAKE 5 [facility] e, 0-06 CAPSULES College Lip-Prot-Am 00:00: BY MOUTH of yl, (CREON) 00 WITH Medicin [id number] MEALS, AND e units CPEP TAKE 2 CAPSULES BY MOUTH EVERY DAY WITH SNACKS esomeprazol Yes 40mg Take 40 mg Univers e (NEXIUM) 9-04 by mouth ity o f 40 mg 14:59: daily with [place] capsule 31 breakfast. Medica l Branch albuterol 2020-0 Yes 1{ampul 1 Ampule. Univers (ACCUNEB) 06-28 e} ity of 0.63 mg/3 14:59: [place] mL 31 Medical nebulizer Branch solution levalbutero 2019-0 Yes 2{puff} Inhale 2 Univers l (XOPENEX 9-04 Puffs. ity of HFA) 45 14:59: [place] mcg/actuati 31 Medical on inhaler Branch esomeprazol 2019-0 Yes 40mg Take 40 mg Univers e (NEXIUM) 06-28 by mouth ity o f 40 mg 14:59: daily with [place] capsule 31 breakfast. Medica l Branch albuterol 2019-0 Yes 1{ampul 1 Ampule. Univers (ACCUNEB) 06-28 e} ity of 0.63 mg/3 14:59: [place] mL 31 Medical nebulizer Branch solution levalbutero 0 Yes 2{puff} Inhale 2 Univers l (XOPENEX 9-04 Puffs. ity of HFA) 45 14:59: [place] mcg/actuati 31 Medical on inhaler Branch esomeprazol 2019-0 Yes 40mg Take 40 mg Univers e (NEXIUM) 06-28 by mouth ity o f 40 mg 14:59: daily with [place] capsule 31 breakfast. Medica l Branch albuterol 2019-0 Yes 1{ampul 1 Ampule. Univers (ACCUNEB) 06-28 e} ity of 0.63 mg/3 14:59: [place] mL 31 Medical nebulizer Branch solution levalbutero 2019-0 Yes 2{puff} Inhale 2 Univers l (XOPENEX 9-04 Puffs. ity of HFA) 45 14:59: [place] mcg/actuati 31 Medical on inhaler Branch dornase 2019-0 Yes [id number] 2.5mg Take 1 [place] alpha 8-27 Ampule by College (PULMOZYME) 00:00: nebulizati of 1 MG/ML 00 on two Medicin nebulizer times e solution daily. Diclofenac 2020-0 Yes 50mg Take 50 mg [facility] Potassium 8-27 by mouth Colleg e 50 MG PACK 00:00: daily as of 00 needed Medicin (headache) e . Do not exceed 2 doses per week. tramadol 2020-0 Yes [id number] 1{tbl} Take 1 Tab [facility] (ULTRAM) 50 8-27 by mouth 2 Co llege MG tablet 00:00: times of 00 daily as Medicin needed for e Pain (Chronic back pain). zolpidem 2020-0 Yes [id number] 10mg Take 1 Tab Jayesh (AMBIEN) 10 8-27 by mouth [place] MG tablet 00:00: nightly as of 00 needed for Medicin Sleep. e insulin 2019-0 Yes INJECT 60 [place] lispro 7-21 UNITS PER College (HUMALOG) 00:00: DAY VIA of 100 UNIT/ML 00 INSULIN Medic in injection PUMP e nortriptyli 2019-0 Yes TAKE 2 [place] ne 7-10 CAPSULES College (PAMELOR) 00:00: BY MOUTH of 10 MG 00 EVERY Medicin capsule NIGHT e BETHKIS 300 2020-0 Yes [id number] 1{ampul 1 Ampule Jayesh MG/4ML NEBU 6-05 e} by College 00:00: Inhalation of 00 route two Medicin times e daily. Alternate 28 days on and 28 days off. Brand name medically necessary. Multiple 2020-0 Yes [id number] Take 1 [place] Vitamins-Mi 5-28 capsule by Co yaniv eckert (MVW 00:00: mouth 2 of COMPLETE 00 times Medicin FORMULATION daily e D3000) CAPS (with meals). duloxetine 2019-0 Yes 30mg Take 1 Cap [facility] (CYMBALTA) 3-23 by mouth Colle ge 30 MG 00:00: daily. of capsule 00 Medicin e ondansetron 2020-0 Yes [id number] TAKE 1 [facility] (ZOFRAN) 4 3-16 TABLET BY [place] MG tablet 00:00: MOUTH of 00 EVERY 8 Medicin HOURS e NEEDED FOR NAUSEA diltiazem 2020-0 Yes 1{tbl} Take 1 Tab Jayesh 120 MG TABS 2-27 by mouth [place] 15:41: two times of 50 daily. Medicin e mirtazapine 2020-0 Yes [id number] 7.5mg Take 7.5 [facility] (REMERON) 2-27 mg by [place] 7.5 MG 15:41: mouth of tablet 49 nightly. Medicin e Vitamin D, 2020-0 Yes [id number] TAKE 1 [facility] Ergocalcife 2-27 CAPSULE BY Co yaniv vang, 1.25 00:00: MOUTH of MG ([id number] 00 EVERY 7 Medicin [place]) CAPS DAYS e dornase 2019-0 Yes [id number] 2.5mg Take 1 [place] alpha 2-25 Ampule by [place] (PULMOZYME) 00:00: nebulizati of 1 MG/ML 00 on two Medicin nebulizer times e solution daily. sodium 2019-0 Yes [id number] 4mL Take 1 [place] chloride, 2-25 Ampule by [facility] Inhalant, 00:00: nebulizati of (HYPER-ELISSA) 00 on two Medici n 7 % times e nebulizer daily. solution albuterol 2019- Yes USE 1 VIAL [facility] (PROVENTIL) 2-14 VIA [place] (2.5 mg/3 00:00: NEBULIZER of mL) 0.083% 00 THREE Medicin nebulizer TIMES e solution DAILY NEEDED FOR SHORTNESS OF BREATH Elexacaf-Te 0 Yes [id number] Take 2 [facility] zacaf-Ivaca 2-13 tablets by Co yaniv f&Ivacaf 00:00: mouth of (TRIKAFTA) 00 every Medicin 100-50-75 & morning e 150 MG TBPK AND 1 tablet at bedtime. Take 12 hours apart with fat containing food ciprofloxac 2019-0 2020- No [id number] 750mg Take 1 Tab Jayesh in (CIPRO) 2-13 - by mouth [place] 750 MG 00:00: 05:59 two times of tablet 00 :00 daily for Medicin 14 days. e zolpidem 2019-0 Yes [id number] 10mg Take 1 Tab Jayesh (AMBIEN) 10 -03 by mouth [place] MG tablet 00:00: nightly as of 00 needed for Medicin Sleep. e cetirizine, 2019-0 Yes [id number] 10mg Take 1 Tab [facility] ZYRTEC, -03 by mouth [place] (ZYRTEC 00:00: daily. of ALLERGY) 10 00 Medicin MG tablet e azithromyci 2019-0 Yes [id number] 500mg Take 1 Tab [facility] n -03 by mouth [place] (ZITHROMAX) 00:00: every of 500 MG 00 Wednesday, Medicin tablet Wednesday, e Wednesday. predniSONE 0 Yes [id number] 5mg Take 0.5 Jayesh (DELTASONE) 1-02 Tabs by Colle ge 10 MG 00:00: mouth of tablet 00 daily. Medicin e omeprazole 2018-10 Yes [id number] TAKE 1 [facility] (PRILOSEC) 2-30 CAPSULE BY Col lege 20 MG 00:00: MOUTH of capsule 00 TWICE Medicin DAILY e dronabinol 2018-10 Yes [id number] 2.5mg Take 1 Cap Jayesh (MARINOL) 2-11 by mouth Colleg e 2.5 MG 00:00: two times of capsule 00 daily. Medicin e Glucose 2018-10 Yes Check [facility] Blood 2-04 glucose 5x College Strips 00:00: daily; Dx of (CONTOUR 00 E84.9 Medicin NEXT TEST) e Glucose 2018-10 Yes Check [facility] Blood 2-04 glucose 5x College Strips 00:00: [...] 2,000 Branch unit tablet ergocalcife 2018-10 Yes [id number] Take [facility] ers rol, 11-20 50,000 ity of vitamin d2, 12:39: [place] (CALCIFEROL 02 mouth. Medica l ) 50,000 Branch unit capsule Cholecalcif 2018-10 Yes [id number] Take 2,000 Univers gail, 1-27 Units by ity of Vitamin D3, 12:39: mouth. [place] (VITAMIN 02 Medical D3) 2,000 Branch unit tablet ergocalcife 2018-10 Yes [id number] Take Univ ers rol, 11-20 50,000 ity of vitamin d2, 12:39: [place] (CALCIFEROL 02 mouth. Medica l ) 50,000 Branch unit capsule Cholecalcif 2018-10 Yes [id number] Take 2,000 Univers gail, 1-27 Units by ity of Vitamin D3, 12:39: mouth. [place] (VITAMIN 02 Medical D3) 2,000 Branch unit tablet ergocalcife 2018-10 Yes [id number] Take Univ ers rol, - 50,000 ity of vitamin d2, 12:39: Units by [place] (CALCIFEROL 02 mouth. Medica l ) 50,000 Branch unit capsule insulin 2018-10 Yes USE 60 [facility] lispro 1-18 UNITS PER College (HUMALOG) 00:00: DAY VIA of 100 UNIT/ML 00 INSULIN Medic in injection PUMP e mirtazapine 2018-10 Yes [id number] 7.5mg Take 7.5 [facility] (REMERON) 1-05 mg by [facility] 7.5 MG 19:26: mouth of tablet 17 nightly. Medicin e diltiazem 2018-10 Yes 1{tbl} Take 1 Tab [facility] 120 MG TABS 1-05 by mouth [facility] 19:26: two times of 17 daily. Medicin e diltiazem 2018-10 Yes 1{tbl} Take 1 Tab [facility] 120 MG TABS 0-23 by mouth [facility] 17:58: two times of 52 daily. Medicin e diltiazem 2018-10 Yes 1{tbl} Take 1 Tab [facility] 120 MG TABS 0-23 by mouth [facility]o [...] 1 VIAL [facility] (PROVENTIL) 0-14 VIA [facility] (2.5 mg/3 00:00: NEBULIZER of mL) 0.083% 00 THREE Medicin nebulizer TIMES e solution DAILY NEEDED FOR SHORTNESS OF BREATH mirtazapine 2018-10 Yes [id number] 7.5mg Take 7.5 [facility] (REMERON) 0-09 mg by [facility] 7.5 MG 19:52: mouth of tablet 28 nightly. Medicin e diltiazem 2018-10 Yes 1{tbl} Take 1 Tab [facility] 120 MG TABS 0-09 by mouth [facility] 19:52: two times of 28 daily. Medicin e mirtazapine 2018-10 Yes [id number] 7.5mg Take 7.5 [facility]esh (REMERON) 0-09 mg by [place] 7.5 MG 19:52: mouth of tablet 28 nightly. Medicin e mirtazapine 2018-10 Yes [id number] 7.5mg Take 7.5 Jayesh (REMERON) 0-09 mg by [place] 7.5 MG 19:52: mouth of tablet 28 nightly. Medicin e dronabinol 2018-10 Yes [id number] 2.5mg Take 1 Cap [facility] (MARINOL) 0-09 by mouth [facility] 2.5 MG 00:00: two times of capsule 00 daily. Medicin e dronabinol 2018-10 Yes [id number] 2.5mg Take 1 Cap [facility] (MARINOL) 0-09 by mouth [facility] 2.5 MG 00:00: two times of capsule 00 daily. Medicin e Continuous 2018-10 Yes 1{each} 1 Each [facility] Blood Gluc 0-09 every 14 [facility] Sensor 00:00: days. of (FREESTYLE 00 Medicin RENNY 14 e DAY SENSOR) MISC dronabinol 2018-10 Yes [id number] 2.5mg Take 1 Cap [facility] (MARINOL) 0-09 by mouth [facility] 2.5 MG 00:00: two times of capsule 00 daily. Medicin e Continuous 2018-10 Yes 1{each} 1 [facility] Blood Gluc 0-09 every 14 [facility]le [facility] Sensor 00:00: days. of (FREESTYLE 00 Medicin RENNY 14 e DAY SENSOR) MISC dronabinol 2018-10 Yes [id number] 2.5mg Take 1 Cap [facility] (MARINOL) 0-09 by mouth [facility] 2.5 MG 00:00: two times of capsule 00 daily. Medicin e Continuous 2018-10 Yes 1{each} 1 [facility] Blood Gluc 0-09 every 14 [facility]le [facility] Sensor 00:00: days. of (FREESTYLE 00 Medicin RENNY 14 e DAY SENSOR) [facility] Continuous 2018-10 Yes 1{each} 1 [facility] Blood Gluc 0-09 every 14 [facility]le ge Sensor 00:00: days. of (FREESTYLE 00 Medicin RENNY 14 e DAY SENSOR) [facility] Continuous 2018-10 Yes 1{each} 1 [facility] Blood Gluc 0-09 every 14 [facility]le ge Sensor 00:00: days. of (FREESTYLE 00 Medicin RENNY 14 e DAY SENSOR) [facility] levalbutero 2018-10 Yes [id number] Inhale 2 Jayesh l tartrate 0-08 puffs in Colle ge (XOPENEX 00:00: am and pm. of HFA) 45 00 May take Medicin MCG/ACT an e AERO additional inhaler 2 puffs throughout day if needed. Cholecalcif 2018-10 Yes [id number] 1{capsu Take 1 [facility] gail 2000 0-08 le} capsule by [employer] [facility] units TABS 00:00: mouth of 00 daily. Medicin e fluticasone 2018-10 Yes [id number] 2{spray 2 Sprays Jayesh (FLONASE) 0-08 } by Each [facility] 50 MCG/ACT 00:00: Nostril of nasal spray 00 route Medicin daily. e Glucagon, 2018-10 Yes [id number] 1{appli Inject 1 [facility] rDNA, 0-08 cator} [employer] (GLUCAGON 00:00: as of EMERGENCY) 00 directed Medic in 1 MG KIT as needed. e levalbutero 2018-10 Yes [id number] Inhale 2 Jayesh l tartrate 0-08 puffs in Colle ge (XOPENEX 00:00: am and pm. of HFA) 45 00 May take Medicin MCG/ACT an e AERO additional inhaler 2 puffs throughout day if needed. Cholecalcif 2018-10 Yes [id number] 1{capsu Take 1 Jayesh gail 2000 0-08 le} capsule by [facility] units TABS 00:00: mouth of 00 daily. Medicin e fluticasone 2018-10 Yes [id number] 2{spray 2 Sprays [facility] (FLONASE) 0-08 } by Each [place] 50 MCG/ACT 00:00: Nostril of nasal spray 00 route Medicin daily. e Glucagon, 2018-10 Yes [id number] 1{appli Inject 1 [facility] rDNA, 0-08 cator} [employer] (GLUCAGON 00:00: as of EMERGENCY) 00 directed Medic in 1 MG KIT as needed. e levalbutero 2018-10 Yes [id number] Inhale 2 Jayesh l tartrate 0-08 puffs in Colle ge (XOPENEX 00:00: am and pm. of HFA) 45 00 May take Medicin MCG/ACT an e AERO additional inhaler 2 puffs throughout day if needed. Cholecalcif 2018-10 Yes [id number] 1{capsu Take 1 [facility] gail 2000 0-08 le} capsule by [facility] units TABS 00:00: mouth of 00 daily. Medicin e fluticasone 2018-10 Yes [id number] 2{spray 2 Sprays Jayesh (FLONASE) 0-08 } by Each [place] 50 MCG/ACT 00:00: Nostril of nasal spray 00 route Medicin daily. e Glucagon, 2018-10 Yes [id number] 1{appli Inject 1 [facility] rDNA, 0-08 cator} [employer] (GLUCAGON 00:00: as of EMERGENCY) 00 directed Medic in 1 MG KIT as needed. e levalbutero 2018-10 Yes [id number] Inhale 2 [facility] l tartrate 0-08 puffs in Colle ge (XOPENEX 00:00: am and pm. of HFA) 45 00 May take Medicin MCG/ACT an e AERO additional inhaler 2 puffs throughout day if needed. Cholecalcif 2018-10 Yes [id number] 1{capsu Take 1 Jayesh gail 2000 0-08 le} capsule by [facility] units TABS 00:00: mouth of 00 daily. Medicin e fluticasone 2018-10 Yes [id number] 2{spray 2 Sprays [facility] (FLONASE) 0-08 } by Each [employer] 50 MCG/ACT 00:00: Nostril of nasal spray 00 route Medicin daily. e Glucagon, 2018-10 Yes [id number] 1{appli Inject 1 [facility] rDNA, 0-08 cator} [employer] (GLUCAGON 00:00: as of EMERGENCY) 00 directed Medic in 1 MG KIT as needed. e levalbutero 2018-10 Yes [id number] Inhale 2 Jayesh l tartrate 0-08 puffs in Colle ge (XOPENEX 00:00: am and pm. of HFA) 45 00 May take Medicin MCG/ACT an e AERO additional inhaler 2 puffs throughout day if needed. Cholecalcif 2018-10 Yes [id number] 1{capsu Take 1 [facility] gail 2000 0-08 le} capsule by [employer] units TABS 00:00: mouth of 00 daily. Medicin e fluticasone 2018-10 Yes [id number] 2{spray 2 Sprays [facility]esh (FLONASE) 0-08 } by Each [place] 50 MCG/ACT 00:00: Nostril of nasal spray 00 route Medicin daily. e Glucagon, 2018-10 Yes [id number] 1{appli Inject 1 [facility] rDNA, 0-08 [facility] of EMERGENCY) 00 directed Medic in 1 MG KIT as needed. e Cholecalcif 2018-10 Yes [id number] Take 1 Jayesh gail 2000 0-08 capsule by [employer] [facility] units TABS 00:00: mouth of 00 daily. Medicin e Glucagon, 2018-10 Yes [id number] 1{appli Inject 1 [facility] rDNA, 0-08 [facility]: as of EMERGENCY) 00 directed Medic in 1 MG KIT as needed. e mirtazapine Yes [id number] 7.5mg Take 7.5 Jayesh (REMERON) 9-30 mg by [facility] 7.5 MG 14:32: mouth of tablet 43 nightly. Medicin e diltiazem Yes 1{tbl} Take 1 Tab [facility] 120 MG TABS 9-30 by mouth [facility] 14:32: two times of 43 daily. Medicin e azithromyci Yes [id number] 500mg Take 1 Tab [facility] n 9-25 by mouth [place] (ZITHROMAX) 00:00: every of 500 MG 00 Wednesday, Medicin tablet Wednesday, e Wednesday. ORKAMBI Yes [id number] TAKE 2 [place] [facility] 200-125 MG 9-25 TABLETS BY [facility]ge TABS 00:00: MOUTH of 00 TWICE Medicin DAILY e EVERY 12 HOURS WITH FAT-CONTAI THOMAS FOOD azithromyci 2019-0 Yes [id number] 500mg Take 1 Tab [facility] n 9-25 by mouth [facility] (ZITHROMAX) 00:00: every of 500 MG 00 Wednesday, Medicin tablet Wednesday, e Wednesday. ORKAMBI 2019-0 Yes [id number] TAKE 2 [place] 200-125 MG 9-25 TABLETS BY [facility] TABS 00:00: MOUTH of 00 TWICE Medicin DAILY e EVERY 12 HOURS WITH FAT-CONTAI THOMAS FOOD azithromyci 2018- Yes [id number] 500mg Take 1 Tab [facility] n 9-25 by mouth [employer] (ZITHROMAX) 00:00: every of 500 MG 00 Wednesday, Medicin tablet Wednesday, e Wednesday. ORKAMBI 2019-0 Yes [id number] TAKE 2 [place] [facility] 200-125 MG 9-25 TABLETS BY [facility] TABS 00:00: MOUTH of 00 TWICE Medicin DAILY e EVERY 12 HOURS WITH FAT-CONTAI THOMAS FOOD azithromyci 2018- Yes [id number] 500mg Take 1 Tab [facility] n 9-25 by mouth [employer] (ZITHROMAX) 00:00: every of 500 MG 00 Wednesday, Medicin tablet Wednesday, e Wednesday. ORKAMBI 2019-0 Yes [id number] TAKE 2 [place] [facility] 200-125 MG 9-25 TABLETS BY [facility] TABS 00:00: MOUTH of 00 TWICE Medicin DAILY e EVERY 12 HOURS WITH FAT-CONTAI THOMAS FOOD azithromyci 2018-0 Yes [id number] 500mg Take 1 Tab [facility]esh n 9-25 by mouth [employer] (ZITHROMAX) 00:00: every of 500 MG 00 Wednesday, Medicin tablet Wednesday, e Wednesday. ORKAMBI 2019-0 Yes [id number] TAKE 2 [place] 200-125 MG 9-25 TABLETS BY [facility] TABS 00:00: MOUTH of 00 TWICE Medicin DAILY e EVERY 12 HOURS WITH FAT-CONTAI THOMAS FOOD azithromyci 2018-0 Yes [id number] 500mg Take 1 Tab [facility]esh n 9-25 by mouth [employer] (ZITHROMAX) 00:00: every of 500 MG 00 Wednesday, Medicin tablet Wednesday, e Wednesday. Nutritional 2019-0 2020- No [id number] 1{bottl Take 1 [facility] Supplements 9-24 e} Bottle by [employer] (GLUCERNA 00:00: 04:59 mouth two of SHAKE) LIQD 00 :00 times Medicin daily for e 180 days. Nutritional 2018- 2020- No [id number] 1{bottl Take 1 [facility] Supplements 9-24 e} Bottle by [employer] (GLUCERNA 00:00: 04:59 mouth two of SHAKE) LIQD 00 :00 times Medicin daily for e 180 days. Nutritional 2018- 2020- No [id number] 1{bottl Take 1 [facility] Supplements 9-24 e} Bottle by [employer] (GLUCERNA 00:00: 04:59 mouth two of SHAKE) LIQD 00 :00 times Medicin daily for e 180 days. Nutritional 2018- 2020- No [id number] 1{bottl Take 1 [facility] Supplements 9-24 e} Bottle by [employer] (GLUCERNA 00:00: 04:59 mouth two of SHAKE) LIQD 00 :00 times Medicin daily for e 180 days. Nutritional 2018- 2020- No [id number] 1{bottl Take 1 [facility] Supplements 07-19-24 e} Bottle by [employer] (GLUCERNA 00:00: 04:59 mouth two of SHAKE) LIQD 00 :00 times Medicin daily for e 180 days. Nutritional 2019- 2020- No [id number] 1{bottl Take 1 [facility] Supplements 925 -24 e} Bottle by [employer] (GLUCERNA 00:00: 04:59 mouth two of SHAKE) LIQD 00 :00 times Medicin daily for e 180 days. Nutritional 2019- 2020- No [id number] 1{bottl Take 1 [facility] Supplements 9-25 -24 e} Bottle by [employer] (GLUCERNA 00:00: 04:59 mouth two of SHAKE) LIQD 00 :00 times Medicin daily for e 180 days. mirtazapine 2019-0 Yes [id number] 7.5mg Take 7.5 Jayesh (REMERON) 9-24 mg by [place] 7.5 MG 18:38: mouth of tablet 41 nightly. Medicin e diltiazem 2019-0 Yes 1{tbl} Take 1 Tab [facility] 120 MG TABS 9-24 by mouth [facility] 18:38: two times of 41 daily. Medicin e Pancrelipas 2019-0 Yes [id number] TAKE 5 [facility] e, 9-24 [employer]ES [employer] Lip-Prot-Am 00:00: BY MOUTH of yl, (CREON) 00 WITH Medicin [id number] MEALS, AND e units CPEP TAKE 2 CAPSULES BY MOUTH EVERY DAY WITH SNACKS Pancrelipas 2019-0 Yes [id number] TAKE 5 [facility] e, 9-24 CAPSULES [employer] Lip-Prot-Am 00:00: BY MOUTH of yl, (CREON) 00 WITH Medicin [id number] MEALS, AND e units CPEP TAKE 2 [facility] BY MOUTH EVERY DAY WITH SNACKS Pancrelipas 2018-0 Yes [id number] TAKE 5 [facility] e, 9-24 CAPS[employer]ES [employer] Lip-Prot-Am 00:00: BY MOUTH of yl, (CREON) 00 WITH Medicin [id number] MEALS, AND e units CPEP TAKE 2 [facility] BY MOUTH EVERY DAY WITH SNACKS Pancrelipas 20190 Yes [id number] TAKE 5 Jayesh e, 9-24 CAPSULES [employer] Lip-Prot-Am 00:00: BY MOUTH of yl, (CREON) 00 WITH Medicin [id number] MEALS, AND e units CPEP TAKE 2 [facility] BY MOUTH EVERY DAY WITH SNACKS Pancrelipas 2019-0 Yes [id number] TAKE 5 Jayesh e, 9-24 CAPSULES [employer] Lip-Prot-Am 00:00: BY MOUTH of yl, (CREON) 00 WITH Medicin [id number] MEALS, AND e units CPEP TAKE 2 [facility] BY MOUTH EVERY DAY WITH SNACKS Pancrelipas 2019-0 Yes [id number] TAKE 5 Jayesh e, 9-24 [employer]ES [employer] Lip-Prot-Am 00:00: BY MOUTH of yl, (CREON) 00 WITH Medicin [id number] MEALS, AND e units CPEP TAKE 2 [facility] BY MOUTH EVERY DAY WITH SNACKS Pancrelipas 2019-0 Yes [id number] TAKE 5 [facility] e, 9-24 CAPS[employer]ES [employer] Lip-Prot-Am 00:00: BY MOUTH of yl, (CREON) 00 WITH Medicin [id number] MEALS, AND e units CPEP TAKE 2 [facility] BY MOUTH EVERY DAY WITH SNACKS omeprazole 2019-0 Yes [id number] 20mg Take 1 Cap [facility] (PRILOSEC) 9-23 by mouth [facility]le [facility] 20 MG 00:00: two times of capsule 00 daily. Medicin e omeprazole 2019-0 Yes [id number] 20mg Take 1 Cap [facility] (PRILOSEC) 9-23 by mouth [facility]le [facility] 20 MG 00:00: two times of capsule 00 daily. Medicin e omeprazole 2019-0 Yes [id number] 20mg Take 1 Cap [facility] (PRILOSEC) 9-23 by mouth [facility]le [facility] 20 MG 00:00: two times of capsule 00 daily. Medicin e omeprazole 2019-0 Yes [id number] 20mg Take 1 Cap [facility] (PRILOSEC) 9-23 by mouth [facility]le [facility] 20 MG 00:00: two times of capsule 00 daily. Medicin e omeprazole 2018-0 Yes [id number] 20mg Take 1 Cap [facility] (PRILOSEC) 9-23 by mouth [facility]le [facility] 20 MG 00:00: two times of capsule 00 daily. Medicin e omeprazole 2018-0 Yes [id number] 20mg Take 1 Cap [facility] (PRILOSEC) 9-23 by mouth [facility]le [facility] 20 MG 00:00: two times of capsule 00 daily. Medicin e esomeprazol 2019- No [id number] 40mg Take 1 Cap Jayesh e (NEXIUM) 07-12 by mouth [facility] 40 MG 00:00: 00:00 daily. of capsule 00 :00 Medicin e guaiFENesin 2019- No [id number] Take 5 mls Jayesh -Codeine 07-07 at night Colleg e (CHERATUSSI 00:00: 04:59 as needed of N AC) 00 :00 for cough. Medicin 100-10 e MG/5ML liquid predniSONE 2018- Yes [id number] 10mg Take 1 Tab [facility] (DELTASONE) 9-04 by mouth [facility] 10 MG 00:00: daily. of tablet 00 Medicin e predniSONE Yes [id number] 10mg Take 1 Tab [facility] (DELTASONE) 9-04 by mouth [facility] 10 MG 00:00: daily. of tablet 00 Medicin e predniSONE Yes [id number] 10mg Take 1 Tab [facility] (DELTASONE) 9-04 by mouth [facility] 10 MG 00:00: daily. of tablet 00 Medicin e predniSONE Yes [id number] 10mg Take 1 Tab [facility] (DELTASONE) 9-04 by mouth [facility] 10 MG 00:00: daily. of tablet 00 Medicin e predniSONE Yes [id number] 10mg Take 1 Tab [facility] (DELTASONE) 9-04 by mouth [facility] 10 MG 00:00: daily. of tablet 00 Medicin e predniSONE Yes [id number] 10mg Take 1 Tab [facility] (DELTASONE) 9-04 by mouth [facility] 10 MG 00:00: daily. of tablet 00 Medicin e albuterol Yes USE 1 VIAL [facility] (PROVENTIL) 8 VIA [facility] (2.5 mg/3 00:00: NEBULIZER of mL) 0.083% 00 THREE Medicin nebulizer TIMES e solution DAILY NEEDED FOR SHORTNESS OF BREATH albuterol Yes USE 1 VIAL [facility] (PROVENTIL) 06-20 VIA [facility] (2.5 mg/3 00:00: NEBULIZER of mL) 0.083% 00 THREE Medicin nebulizer TIMES e solution DAILY NEEDED FOR SHORTNESS OF BREATH albuterol Yes USE 1 VIAL [facility] (PROVENTIL) 06-20 VIA [facility] (2.5 mg/3 00:00: NEBULIZER of mL) 0.083% 00 THREE Medicin nebulizer TIMES e solution DAILY NEEDED FOR SHORTNESS OF BREATH lidocaine Yes [id number] 1{patch Place 1 [facility] (LIDODERM) 8-21 } Patch onto [facility] 5 % patch 00:00: the skin of 00 every 24 Medicin hours. e lidocaine Yes [id number] 1{patch Place 1 [facility] (LIDODERM) 8-21 } Patch onto [facility] 5 % patch 00:00: the skin of 00 every 24 Medicin hours. e lidocaine Yes [id number] 1{patch Place 1 Jay[facility] (LIDODERM) 8-21 } Patch onto [facility] 5 % patch 00:00: the skin of 00 every 24 Medicin hours. e sertraline Yes [id number] 25mg Take 1 Tab [facility] (ZOLOFT) 25 8-13 by mouth [facility] MG tablet 00:00: daily. of Medicin e sertraline 2019-0 Yes [id number] 25mg Take 1 Tab [facility] (ZOLOFT) 25 8-13 by mouth [facility] MG tablet 00:00: daily. of Medicin e sertraline 2019-0 Yes [id number] 25mg Take 1 Tab [facility] (ZOLOFT) 25 8-13 by mouth [facility] MG tablet 00:00: daily. of Medicin e sertraline 2019-0 Yes [id number] 25mg Take 1 Tab [facility] (ZOLOFT) 25 8-13 by mouth [facility] MG tablet 00:00: daily. of Medicin e sertraline 2019-0 Yes [id number] 25mg Take 1 Tab [facility] (ZOLOFT) 25 8-13 by mouth [facility] MG tablet 00:00: daily. of Medicin e sertraline 2019-0 Yes [id number] 25mg Take 1 Tab [facility] (ZOLOFT) 25 8-13 by mouth [facility] MG tablet 00:00: daily. of Medicin e dornase 2019- Yes [id number] 2.5mg Take 1 [place] alpha 8-12 Ampule by [place] (PULCultureAlleyZYME) 00:00: nebulizati of 1 MG/ML 00 on two Medicin nebulizer times e solution daily. Cholecalcif 2019-0 Yes [id number] 1{capsu Take 1 Jayesh gail 2000 8-12 le} capsule by [employer] ege units TABS 00:00: mouth of 00 daily. Medicin e dornase 2019-0 Yes [id number] 2.5mg Take 1 [place] alpha 8-12 Ampule by [place] (PULMOZYME) 00:00: nebulizati of 1 MG/ML 00 on two Medicin nebulizer times e solution daily. Cholecalcif 2019-0 Yes [id number] 1{capsu Take 1 [facility] gail 2000 8-12 le} capsule by [employer] e[facility] units TABS 00:00: mouth of 00 daily. Medicin e dornase 2019-0 Yes [id number] 2.5mg Take 1 [place] alpha 8-12 Ampule by [place] (PULMOZYME) 00:00: nebulizati of 1 MG/ML 00 on two Medicin nebulizer times e solution daily. dornase 2019-0 Yes [id number] 2.5mg Take 1 [place] alpha 8-12 Ampule by [facility] (PULMOZYME) 00:00: nebulizati of 1 MG/ML 00 on two Medicin nebulizer times e solution daily. dornase Yes [id number] 2.5mg Take 1 [place] alpha 8-12 Ampule by [place] (PULMOZYME) 00:00: nebulizati of 1 MG/ML 00 on two Medicin nebulizer times e solution daily. dornase Yes [id number] 2.5mg Take [address] [place] [facility] alpha 8-12 Ampule by [facility] (PULMOZYME) 00:00: nebulizati of 1 MG/ML 00 on two Medicin nebulizer times e solution daily. dronabinol Yes [id number] 2.5mg Take 1 Cap [facility] (MARINOL) 809 by mouth Colleg e 2.5 MG 00:00: two times of capsule 00 daily. Medicin e dronabinol Yes [id number] 2.5mg Take 1 Cap [facility] (MARINOL) 8 by mouth [facility] e 2.5 MG 00:00: two times of capsule 00 daily. Medicin e mirtazapine Yes [id number] 7.5mg Take 7.5 Jayesh (REMERON) 7-26 mg by [place] 7.5 MG 16:17: mouth of tablet 13 nightly. Medicin e sertraline Yes 25mg Take 25 mg [facility] (ZOLOFT) 25 7-26 by mouth [facility] MG tablet 16:17: daily. of 13 Medicin e diltiazem 0 Yes 1{tbl} Take 1 Tab [facility] 120 MG TABS 7-26 by mouth [facility] 16:17: daily. of 13 Medicin e Lumacaftor- 0 Yes [id number] 2{capsu Take 2 [facility] Ivacaftor 05-15 le} Caps by [place] ([employer]) 00:00: mouth of 200-125 MG 00 every 12 Medic in TABS hours. e Lumacaftor- 2018- 2019- No [id number] 2{capsu Take 2 [facility] Ivacaftor 05-15 09-23 le} Caps by [facility] (ORKAMBI) 00:00: 00:00 mouth of 200-125 MG 00 :00 every 12 Medic in TABS hours. e albuterol Yes USE 1 [facility]IAL [facility] (PROVENTIL) 7-18 VIA [place] (2.5 mg/3 00:00: NEBULIZER of mL) 0.083% 00 THREE Medicin nebulizer TIMES e solution DAILY NEEDED FOR SHORTNESS OF BREATH nortriptyli 2018-0 Yes 20mg Take 2 [facility] ne 7-16 Caps by [place] (PAMELOR) 00:00: mouth of 10 MG 00 nightly. Medicin capsule e nortriptyli 2018-0 Yes 20mg Take 2 [facility] 7-16 Caps by [place] (PAMELOR) 00:00: mouth of 10 MG 00 nightly. Medicin capsule e nortriptyli 2018-0 Yes 20mg Take 2 [facility] 7-16 Caps by [place] (PAMELOR) 00:00: mouth of 10 MG 00 nightly. Medicin capsule e nortriptyli 2018-0 Yes 20mg Take 2 [facility] 7-16 Caps by [place] (PAMELOR) 00:00: mouth of 10 MG 00 nightly. Medicin capsule e nortriptyli 2018-0 Yes 20mg Take 2 [facility] 7-16 Caps by [place] (PAMELOR) 00:00: mouth of 10 MG 00 nightly. Medicin capsule e nortriptyli 2019- No 20mg Take [address] [place] ne 7-16 10-31 Caps by [place] (PAMELOR) 00:00: 00:00 mouth of 10 MG 00 :00 nightly. Medicin capsule e tramadol 2018-0 Yes [id number] 50mg Take 1 Tab [facility] (ULTRAM) 50 7-15 by mouth [facility] MG tablet 00:00: Every 6 of 00 hours. Medicin e ondansetron 2018-0 Yes [id number] 4mg Take 1 Tab [facility] (ZOFRAN) 4 7-15 by mouth Colle [facility] MG tablet 00:00: every 8 of 00 hours as Medicin needed for e Nausea. cetirizine, 2019-0 Yes [id number] 10mg Take 1 Tab [facility] ZYRTEC, 7-15 by mouth [place] (ZYRTEC 00:00: daily. of ALLERGY) 10 00 Medicin MG tablet e tramadol Yes [id number] 50mg Take 1 Tab [facility] (ULTRAM) 50 7-15 by mouth [facility] MG tablet 00:00: Every 6 of 00 hours. Medicin e ondansetron 2018- Yes [id number] 4mg Take 1 Tab [facility] (ZOFRAN) 4 7-15 by mouth Colle [facility] MG tablet 00:00: every 8 of 00 hours as Medicin needed for e Nausea. cetirizine, Yes [id number] 10mg Take 1 Tab [facility] ZYRTEC, 7-15 by mouth College (ZYRTEC 00:00: daily. of ALLERGY) 10 00 Medicin MG tablet e tramadol Yes [id number] 50mg Take 1 Tab [facility] (ULTRAM) 50 7-15 by mouth [facility] MG tablet 00:00: Every 6 of 00 hours. Medicin e ondansetron Yes [id number] 4mg Take 1 Tab [facility] (ZOFRAN) 4 7-15 by mouth Colle [facility] MG tablet 00:00: every 8 of 00 hours as Medicin needed for e Nausea. cetirizine, Yes [id number] 10mg Take 1 Tab Jayesh ZYRTEC, 7-15 by mouth College (ZYRTEC 00:00: daily. of ALLERGY) 10 00 Medicin MG tablet e tramadol Yes [id number] 50mg Take 1 Tab [facility] (ULTRAM) 50 7-15 by mouth [facility] MG tablet 00:00: Every 6 of 00 hours. Medicin e ondansetron Yes [id number] 4mg Take 1 Tab [facility] (ZOFRAN) 4 7-15 by mouth Colle ge MG tablet 00:00: every 8 of 00 hours as Medicin needed for e Nausea. cetirizine, Yes [id number] 10mg Take 1 Tab [facility] ZYRTEC, 7-15 by mouth College (ZYRTEC 00:00: daily. of ALLERGY) 10 00 Medicin MG tablet e tramadol Yes [id number] 50mg Take 1 Tab [facility] (ULTRAM) 50 7-15 by mouth [facility] MG tablet 00:00: Every 6 of 00 hours. Medicin e ondansetron 2018- Yes [id number] 4mg Take 1 Tab [facility] (ZOFRAN) 4 7-15 by mouth Colle [facility] MG tablet 00:00: every 8 of 00 hours as Medicin needed for e Nausea. cetirizine, Yes [id number] 10mg Take 1 Tab [facility] ZYRTEC, 7-15 by mouth College (ZYRTEC 00:00: daily. of ALLERGY) 10 00 Medicin MG tablet e tramadol Yes [id number] 50mg Take 1 Tab [facility] (ULTRAM) 50 7-15 by mouth [facility] MG tablet 00:00: Every 6 of 00 hours. Medicin e ondansetron Yes [id number] 4mg Take 1 Tab [facility] (ZOFRAN) 4 7-15 by mouth Colle [facility] MG tablet 00:00: every 8 of 00 hours as Medicin needed for e Nausea. cetirizine, Yes [id number] 10mg Take 1 Tab [facility] ZYRTEC, 7-15 by mouth College (ZYRTEC 00:00: daily. of ALLERGY) 10 00 Medicin MG tablet e tramadol Yes [id number] 50mg Take 1 Tab [facility] (ULTRAM) 50 7-15 by mouth [facility] MG tablet 00:00: Every 6 of 00 hours. Medicin e ondansetron Yes [id number] 4mg Take 1 Tab [facility] (ZOFRAN) 4 7-15 by mouth Colle [facility] MG tablet 00:00: every 8 of 00 hours as Medicin needed for e Nausea. Cholecalcif 2018- Yes [id number] 1{capsu Take 1 [facility]esh gail 2000 7-15 le} capsule by [facility] units TABS 00:00: mouth of 00 daily. Medicin e tramadol Yes [id number] 50mg Take 1 Tab [facility] (ULTRAM) 50 7-15 by mouth [facility] MG tablet 00:00: Every 6 of 00 hours. Medicin e ondansetron 2018- Yes [id number] 4mg Take 1 Tab [facility] (ZOFRAN) 4 7-15 by mouth Colle [facility] MG tablet 00:00: every 8 of 00 hours as Medicin needed for e Nausea. cetirizine, Yes [id number] 10mg Take 1 Tab [facility] ZYRTEC, 7-15 by mouth College (ZYRTEC 00:00: daily. of ALLERGY) 10 00 Medicin MG tablet e voriconazol 2019- No [id number] 200mg Take 1 Tab [facility] e (VFEND) 7 07-30 by mouth Colle ge 200 MG 00:00: 00:00 two times of tablet 00 :00 daily. Medicin e Nutritional 2020- No [id number] 1{bottl Take 1 [facility] Supplements 04-28 01-02 e} Bottle by [employer] llege (GLUCERNA 00:00: 05:59 mouth 3 of SHAKE) LIQD 00 :00 times Medicin daily for e 180 days. Nutritional 2019- No [id number] 1{bottl Take 1 [facility] Supplements 04-28 09-25 e} Bottle by [employer] l[employer] (GLUCERNA 00:00: 00:00 mouth 3 of SHAKE) LIQD 00 :00 times Medicin daily for e 180 days. Multiple Yes TAKE 1 [facility]-Mi 6-27 CAPSULE BY [employer] nerals (MVW 00:00: MOUTH 2 of COMPLETE 00 TIMES Medicin FORMULATION DAILY WITH e D3000) CAPS MEALS FOR 180 DAYS Multiple Yes TAKE 1 Jayesh Vitamins-Mi 6-27 [employer]SU[employer] (MVW 00:00: MOUTH 2 of COMPLETE 00 TIMES Medicin FORMULATION DAILY WITH e D3000) CAPS MEALS FOR 180 DAYS Multiple Yes TAKE 1 [facility] Vitamins-Mi 6-27 CAPSULE [employer] (MVW 00:00: MOUTH 2 of COMPLETE 00 TIMES Medicin FORMULATION DAILY WITH e D3000) CAPS MEALS FOR 180 DAYS Multiple Yes TAKE 1 Jayesh Vitamins-Mi 6-27 [employer]SU[employer] (MVW 00:00: MOUTH 2 of COMPLETE 00 TIMES Medicin FORMULATION DAILY WITH e D3000) CAPS MEALS FOR 180 DAYS Multiple 2019-0 Yes TAKE 1 [facility] Vitamins-Mi 6-27 CAPSULE [employer] (MVW 00:00: MOUTH 2 of COMPLETE 00 TIMES Medicin FORMULATION DAILY WITH e D3000) CAPS MEALS FOR 180 DAYS Multiple 2019- Yes TAKE 1 Jayesh Vitamins-Mi 6-27 CAPSULE BY [facility] (MVW 00:00: MOUTH 2 of COMPLETE 00 TIMES Medicin FORMULATION DAILY WITH e D3000) CAPS MEALS FOR 180 DAYS Multiple 2019-0 Yes TAKE 1 [facility] Vitamins-Mi 6-27 CAPSULE BY [facility] (MVW 00:00: MOUTH 2 of COMPLETE 00 TIMES Medicin FORMULATION DAILY WITH e D3000) CAPS MEALS FOR 180 DAYS Multiple 2019-0 Yes TAKE 1 Jayesh Vitamins-Mi 6-27 CAPSULE BY [facility] (MVW 00:00: MOUTH 2 of COMPLETE 00 TIMES Medicin FORMULATION DAILY WITH e D3000) CAPS MEALS FOR 180 DAYS [facility] 300 2018- Yes [id number] 1{ampul 1 Amp[facility] Jayesh MG/4ML NEBU 6-26 e} by College 00:00: Inhalation of 00 route two Medicin times e daily. Alternate 28 days on and 28 days off. Brand name medically necessary. [facility] 300 Yes [id number] 1{ampul 1 Ampule Jayesh MG/4ML NEBU 6-26 e} by [place] 00:00: Inhalation of 00 route two Medicin times e daily. Alternate 28 days on and 28 days off. Brand name medically necessary. [facility] 300 Yes [id number] 1{ampul 1 Ampule [facility] MG/4ML NEBU 6-26 e} by [place] 00:00: Inhalation of 00 route two Medicin times e daily. Alternate 28 days on and 28 days off. Brand name medically necessary. [facility] 300 Yes [id number] 1{ampul 1 Ampule [facility] MG/4ML NEBU 6-26 e} by [place] 00:00: Inhalation of 00 route two Medicin times e daily. Alternate 28 days on and 28 days off. Brand name medically necessary. [facility] 300 Yes [id number] 1{ampul 1 Ampule Jayesh MG/4ML NEBU 6-26 e} by [place] 00:00: Inhalation of 00 route two Medicin times e daily. Alternate 28 days on and 28 days off. Brand name medically necessary. [facility] 300 Yes [id number] 1{ampul 1 Ampule Jayesh MG/4ML NEBU 6-26 e} by [place] 00:00: Inhalation of 00 route two Medicin times e daily. Alternate 28 days on and 28 days off. Brand name medically necessary. [facility] 300 Yes [id number] 1{ampul 1 Ampule Jayesh MG/4ML NEBU 6-26 e} by [facility] 00:00: Inhalation of 00 route two Medicin times e daily. Alternate 28 days on and 28 days off. Brand name medically necessary. [facility] 300 2019-0 Yes [id number] 1{ampul 1 Ampule [facility] MG/4ML NEBU 6-26 e} by [facility] 00:00: Inhalation of 00 route two Medicin times e daily. Alternate 28 days on and 28 days off. Brand name medically necessary. esomeprazol 2018- Yes [id number] 40mg Take 1 Cap Jayesh e (NEXIUM) 6-05 by mouth [facility]le [facility] 40 MG 00:00: daily. of capsule 00 Medicin e sodium Yes [id number] 4mL Take 1 [facility] chloride, 6-03 Ampule by [facility]le ge Inhalant, 00:00: nebulizati of (HYPER-ELISSA) 00 on two Medici n 7 % times e nebulizer daily. solution sodium Yes [id number] 4mL Take 1 [facility] chloride, 6-03 Ampule by [facility]le [facility] Inhalant, 00:00: nebulizati of (HYPER-ELISSA) 00 on two Medici n 7 % times e nebulizer daily. solution sodium Yes [id number] 4mL Take 1 [facility] chloride, 6-03 Ampule by [facility]le [facility] Inhalant, 00:00: nebulizati of (HYPER-ELISSA) 00 on two Medici n 7 % times e nebulizer daily. solution sodium Yes [id number] 4mL Take 1 [facility] chloride, 6-03 Ampule by [facility]le ge Inhalant, 00:00: nebulizati of (HYPER-ELISSA) 00 on two Medici n 7 % times e nebulizer daily. solution sodium Yes [id number] 4mL Take 1 [facility] chloride, 6-03 Ampule by [facility]le ge Inhalant, 00:00: nebulizati of (HYPER-ELISSA) 00 on two Medici n 7 % times e nebulizer daily. solution sodium Yes [id number] 4mL Take 1 [facility] chloride, 6-03 Ampule by [facility]le ge Inhalant, 00:00: nebulizati of (HYPER-ELISSA) 00 on two Medici n 7 % times e nebulizer daily. solution sodium 2018- Yes [id number] 4mL Take 1 [facility] chloride, 6-03 A[facility]ule by [facility] Inhalant, 00:00: nebulizati of (HYPER-ELISSA) 00 on two Medici n 7 % times e nebulizer daily. solution Vitamin D, 2019 Yes [id number] TAKE 1 Jayesh Ergocalcife 5-28 CAPSULE BY [facility], 00:00: MOUTH of units CAPS 00 EVERY 7 Medici n DAYS e Vitamin D, Yes [id number] TAKE 1 [facility] Ergocalcife 5-28 CAPSULE BY Pa [facility] vang, 00:00: MOUTH of units CAPS 00 EVERY 7 Medici n DAYS e Vitamin D, Yes [id number] TAKE 1 [facility] Ergocalcife 5-28 CAPSULE BY Pa [facility] vang, 00:00: MOUTH of units CAPS 00 EVERY 7 Medici n DAYS e Vitamin D, Yes [id number] TAKE 1 [facility] Ergocalcife 5-28 CAPSULE BY Pa [facility] vang, 00:00: MOUTH of units CAPS 00 EVERY 7 Medici n DAYS e Vitamin D, Yes [id number] TAKE 1 [facility] Ergocalcife 5-28 CAPSULE BY Pa [facility] vang, 00:00: MOUTH of units CAPS 00 EVERY 7 Medici n DAYS e Vitamin D, Yes [id number] TAKE 1 [facility] Ergocalcife 5-28 CAPSULE BY Pa [facility] vang, 00:00: MOUTH of units CAPS 00 EVERY 7 Medici n DAYS e Vitamin D, Yes [id number] TAKE 1 [facility] Ergocalcife 5-28 CAPSULE BY Pa [facility]aniv vang, 00:00: MOUTH of units CAPS 00 EVERY 7 Medici n DAYS e Vitamin D, 2020- No [id number] TAKE 1 Jayesh Ergocalcife 5-28 02-27 CAPSULE BY Sara vang, 00:00: 00:00 MOUTH of units CAPS 00 :00 EVERY 7 Medici n DAYS e insulin Yes Use 60 [facility] lispro 4-10 units per College (HUMALOG) 00:00: [...] Medic in injection pump. e dornase Yes [id number] 2.5mg Take 1 [place] alpha 3-08 Ampule by [place] (PULMOZYME) 00:00: nebulizati of 1 MG/ML 00 on two Medicin nebulizer times e solution daily. Pancrelipas Yes [id number] TAKE 5 [facility] e, 3-08 CAPSULES [place] Lip-Prot-Am 00:00: BY MOUTH of yl, (CREON) 00 WITH Medicin [id number] MEALS, AND e units CPEP TAKE 2 CAPSULES BY MOUTH EVERY DAY WITH SNACKS Pancrelipas 2019- No [id number] TAKE 5 [facility] e, 3-08 09-24 CAPSULES [place] Lip-Prot-Am 00:00: 00:00 BY MOUTH o f yl, (CREON) 00 :00 WITH Medicin [id number] MEALS, AND e units CPEP TAKE 2 CAPSULES BY MOUTH EVERY DAY WITH SNACKS zolpidem 0 Yes [id number] 10mg Take 1 Tab Jayesh (AMBIEN) 10 2-22 by mouth [facility] MG tablet 00:00: nightly as of 00 needed for Medicin Sleep. e zolpidem Yes [id number] 10mg Take 1 Tab [facility] (AMBIEN) 10 2-22 by mouth [facility] MG tablet 00:00: nightly as of 00 needed for Medicin Sleep. e zolpidem 2019-0 Yes [id number] 10mg Take 1 Tab [facility] (AMBIEN) 10 2-22 by mouth [place] MG tablet 00:00: nightly as of 00 needed for Medicin Sleep. e zolpidem 2019-0 Yes [id number] 10mg Take 1 Tab [facility] (AMBIEN) 10 2-22 by mouth [place] [facility] MG tablet 00:00: nightly as of 00 needed for Medicin Sleep. e zolpidem 2019-0 Yes [id number] 10mg Take 1 Tab [facility] (AMBIEN) 10 2-22 by mouth [place] MG tablet 00:00: nightly as of 00 needed for Medicin Sleep. e zolpidem 2019-0 Yes [id number] 10mg Take 1 Tab Jayesh (AMBIEN) 10 2-22 by mouth [place] [facility] MG tablet 00:00: nightly as of 00 needed for Medicin Sleep. e zolpidem 2019-0 Yes [id number] 10mg Take 1 Tab [facility] (AMBIEN) 10 2-22 by mouth [place] MG tablet 00:00: nightly as of 00 needed for Medicin Sleep. e Glucose 2019-0 Yes Check [facility] Blood 2-07 glucose 5x College Strips 00:00: daily; Dx of (CONTOUR 00 E84.9 Medicin NEXT TEST) e Glucose 2019-0 Yes Check [facility] Blood 2-07 glucose 5x College Strips 00:00: daily; Dx of (CONTOUR 00 E84.9 Medicin NEXT TEST) e Glucose 2019-0 Yes Check Jayesh Blood 2-07 glucose 5x [facility] Strips 00:00: daily; Dx of (CONTOUR 00 E84.9 Medicin NEXT TEST) e Glucose 2019-0 Yes Check [facility] Blood 2-07 glucose 5x College Strips 00:00: [...] 00 E84.9 Medicin NEXT TEST) e Blood Yes Check Jayesh Glucose 2-05 glucose 5x Colleg e Monitoring 00:00: daily; Dx of Suppl (ONE 00 E84.9 Medicin TOUCH ULTRA e MINI) w/Device KIT Blood Yes Check Jayesh Glucose 2-05 glucose 5x Colleg e Monitoring 00:00: daily; Dx of Suppl (ONE 00 E84.9 Medicin TOUCH ULTRA e MINI) w/Device KIT Blood Yes Check [facility] Glucose 2-05 glucose 5x Colleg e Monitoring [...] e MINI) w/Device KIT Blood Yes Check [facility] Glucose 2-05 glucose 5x Colleg e Monitoring 00:00: daily; Dx of Suppl (ONE 00 E84.9 Medicin TOUCH ULTRA e MINI) w/Device KIT Blood Yes Check [facility] Glucose 2-05 glucose 5x Colleg e Monitoring 00:00: daily; Dx of Suppl (ONE 00 E84.9 Medicin TOUCH ULTRA e MINI) w/Device KIT Blood Yes Check [facility] Glucose 2-05 glucose 5x Colleg e Monitoring 00:00: daily; Dx of Suppl (ONE 00 E84.9 Medicin TOUCH ULTRA e MINI) w/Device KIT Blood Yes Check Jayesh Glucose 2-05 glucose 5x Colleg e Monitoring 00:00: daily; Dx of Suppl (ONE 00 E84.9 Medicin TOUCH ULTRA e MINI) w/Device KIT Glucagon, 2017-10 Yes [id number] 1{appli Inject 1 Jayesh rDNA, 2-24 cator} Applicator [facility] (GLUCAGON 00:00: as of EMERGENCY) 00 directed Medic in 1 MG KIT as needed. e Glucagon, 2017-10 Yes [id number] 1{appli Inject 1 [facility] rDNA, 2-24 cator} [facility] (GLUCAGON 00:00: as of EMERGENCY) 00 directed Medic in 1 MG KIT as needed. e Glucagon, 2017-10 Yes [id number] 1{appli Inject 1 Jayesh rDNA, 2-24 cator} [employer] (GLUCAGON 00:00: as of EMERGENCY) 00 directed Medic in 1 MG KIT as needed. e Insulin 2017-10 Yes [id number] Use as [facility] Syringe-Nee 2-21 directed. Col lege dle U-100 00:00: of 30G X 5/16" 00 Medicin 0.5 ML MISC e Insulin 2017-10 Yes [id number] Use [facility] Syringes, 2-21 syringe College Disposable, 00:00: every time of U-100 0.3 00 need to Medicin ML MISC inject e insulin Insulin 2017-10 Yes [id number] Use as [facility] Syringe-Nee 2-21 directed. Col lege dle U-100 00:00: of 30G X 5/16" 00 Medicin 0.5 ML MISC e Insulin 2017-10 Yes [id number] Use [facility] Syringes, 2-21 syringe [employer] Disposable, 00:00: every time of U-100 0.3 00 need to Medicin ML MISC inject e insulin Insulin 2017-10 Yes [id number] Use as [facility] Syringe-Nee 2-21 directed. Col lege dle U-100 00:00: of 30G X 5/16" 00 Medicin 0.5 ML MISC e Insulin 2017-10 Yes [id number] Use [facility] Syringes, 2-21 syringe [employer] Disposable, 00:00: every time of U-100 0.3 00 need to Medicin ML MISC inject e insulin Insulin 2017-10 Yes [id number] Use as [facility] Syringe-Nee 2-21 directed. Col lege dle U-100 00:00: of 30G X 5/16" 00 Medicin 0.5 ML MISC e Insulin 2017-10 Yes [id number] Use [facility] Syringes, 2-21 syringe [employer] Disposable, 00:00: every time of U-100 0.3 00 need to Medicin ML MISC inject e insulin Insulin 2017-10 Yes [id number] Use as [facility] Syringe-Nee 2-21 directed. Col lege dle U-100 00:00: of 30G X 5/16" 00 Medicin 0.5 ML MISC e Insulin 2017-10 Yes [id number] Use [facility] Syringes, 2-21 syringe [employer] Disposable, 00:00: every time of U-100 0.3 00 need to Medicin ML MISC inject e insulin Insulin 2017-10 Yes [id number] Use as [facility] Syringe-Nee 2-21 directed. Col lege dle U-100 00:00: of 30G X 5/16" 00 Medicin 0.5 ML MISC e Insulin 2017-10 Yes [id number] Use [facility] Syringes, 2-21 syringe [employer] Disposable, 00:00: every time of U-100 0.3 00 need to Medicin ML MISC inject e insulin Insulin 2017-10 Yes [id number] Use as [facility] Syringe-Nee 221 directed. Col lege dle U-100 00:00: of 30G X 516" 00 Medicin 0.5 ML MISC e Insulin 2017-10 Yes [id number] Use [facility] Syringes, 2-21 syringe [employer] Disposable, 00:00: every time of U-100 0.3 00 need to Medicin ML MISC inject e insulin ACCU-CHEK Yes [id number] 1{each} 1 Each 6 Jayesh FASTCLIX 7-23 times College LANCETS 00:00: daily. of MISC 00 Check 6 Medicin times per e day Insulin Pen Yes [id number] Use as Jayesh Needle (BD 7-23 directed Colle ge PEN NEEDLE 00:00: to inject of SAIRA U/F) 00 7 times Medicin 32G X 4 MM daily e MISC ACCU-CHEK Yes [id number] 1{each} 1 Each 6 [facility] FASTCLIX 7-23 times College LANCETS 00:00: daily. of MISC 00 Check 6 Medicin times per e day Insulin Pen Yes [id number] Use as Jayesh Needle (BD 7-23 directed Colle ge PEN NEEDLE 00:00: to inject of SAIRA U/F) 00 7 times Medicin 32G X 4 MM daily e MISC ACCU-CHEK Yes [id number] 1{each} 1 Each 6 Jayesh FASTCLIX 7-23 times College LANCETS 00:00: daily. of [facility] 00 Check 6 Medicin times per e day Insulin Pen 2017-0 Yes [id number] Use as [facility] Needle (BD 7-23 directed Colle ge PEN NEEDLE 00:00: to inject of SAIRA U/F) 00 7 times Medicin 32G X 4 MM daily e MISC ACCU-CHEK 2017- Yes [id number] 1{each} 1 Each 6 [facility] FASTCLIX 7-23 times College LANCETS 00:00: daily. of [facility] 00 Check 6 Medicin times per e day Insulin Pen 2017-0 Yes [id number] Use as [facility] Needle (BD 7-23 directed Colle ge PEN NEEDLE 00:00: to inject of SAIRA U/F) 00 7 times Medicin 32G X 4 MM daily e MISC ACCU-CHEK 2017-0 Yes [id number] 1{each} 1 Each 6 [facility] FASTCLIX 7-23 times College LANCETS 00:00: daily. of [facility] 00 Check 6 Medicin times per e day Insulin Pen 2017-0 Yes [id number] Use as [facility] Needle (BD 7-23 directed Colle ge PEN NEEDLE 00:00: to inject of SAIRA U/F) 00 7 times Medicin 32G X 4 MM daily e MISC ACCU-CHEK 2017-0 Yes [id number] 1{each} 1 Each 6 [facility] FASTCLIX 7-23 times College LANCETS 00:00: daily. of [facility] 00 Check 6 Medicin times per e day Insulin Pen 2017-0 Yes [id number] Use as [facility] Needle (BD 7-23 directed Colle ge PEN NEEDLE 00:00: to inject of SAIRA U/F) 00 7 times Medicin 32G X 4 MM daily e MISC ACCU-CHEK 2018-0 Yes [id number] 1{each} 1 Each 6 [facility] FASTCLIX 7-23 times College LANCETS 00:00: daily. of [facility] 00 Check 6 Medicin times per e day Insulin Pen 2017-0 Yes [id number] Use as Jayesh Needle (BD 7-23 directed Colle ge PEN NEEDLE 00:00: to inject of SAIRA U/F) 00 7 times Medicin 32G X 4 MM daily e MISC ACCU-CHEK 2018-0 Yes [id number] 1{each} 1 Each 6 [facility] FASTCLIX 7-23 times [place] LANCETS 00:00: daily. of [facility] 00 Check 6 Medicin times per e day Insulin Pen Yes [id number] Use as [facility] Needle (BD 05-16 directed Colle ge PEN NEEDLE 00:00: to inject of SAIRA U/F) 00 7 times Medicin 32G X 4 MM daily e [facility] ACCU-CHEK Yes [id number] 1{each} 1 Each 6 [facility] FASTCLIX 7-23 times [place] LANCETS 00:00: daily. of [facility] 00 Check 6 Medicin times per e day nortriptyli Yes TK 1 C PO U nivers ne 10 mg 3-05 Q NIGHT ity of capsule 00:00: [address] [place] nortriptyli 2018- Yes TK 1 C PO U nivers ne 10 mg 3-05 Q NIGHT ity of capsule 00:00: [address] [place] nortriptyli Yes TK 1 C PO U nivers ne 10 mg 3-05 Q NIGHT ity of capsule 00:00: [address] sulfamethox 2018-0 Yes 1{tbl} Take 1 [...] sulfamethox 2018-0 Yes 1{tbl} Take 1 Tab [facility] azole-trime 2-26 by mouth [place] thoprim 00:00: two times of (BACTRIM 00 daily. Medicin DS) 800-160 e MG per tablet sulfamethox 2018-0 Yes 1{tbl} Take 1 Tab Jayesh azole-trime 2-26 by mouth [place] thoprim 00:00: two times of (BACTRIM 00 daily. Medicin DS) 800-160 e MG per tablet sulfamethox 2018-0 Yes 1{tbl} Take 1 Tab [facility] azole-trime 2-26 by mouth [place] thoprim [...] DS) 800-160 e MG per tablet fluticasone 2018-0 Yes [id number] 2{spray 2 Sprays Jayesh (FLONASE) 2-12 } by Each [place] 50 MCG/ACT 00:00: Nostril of nasal spray 00 route Medicin daily. e fluticasone 2017-0 Yes [id number] 2{spray 2 Sprays Jayesh (FLONASE) 2-12 } by Each [place] 50 MCG/ACT 00:00: Nostril of nasal spray 00 route Medicin daily. e fluticasone 2018-0 Yes [id number] 2{spray 2 Sprays [facility] (FLONASE) 2-12 } by Each [place] 50 MCG/ACT 00:00: Nostril of nasal spray 00 route Medicin daily. e levalbutero 2017-0 Yes [id number] Inhale 2 [facility] l tartrate 1-24 puffs in Colle ge (XOPENEX 00:00: am and pm. of HFA) 45 May take Medicin MCG/ACT an e AERO additional inhaler 2 puffs throughout day if needed. levalbutero 2017-0 Yes [id number] Inhale 2 Jayesh l tartrate 1-24 puffs in Colle ge (XOPENEX 00:00: am and pm. of HFA) 45 May take Medicin MCG/ACT an e AERO additional inhaler 2 puffs throughout day if needed. levalbutero 2017-0 Yes [id number] Inhale 2 [facility] l tartrate 1-24 puffs in Colle ge (XOPENEX 00:00: am and pm. of HFA) 45 May take Medicin MCG/ACT an e AERO [...] Medica l DAILY [facility] predniSONE 2016-10 Yes [id number] 20mg Take 1 Tab [facility] (DELTASONE) 1-17 by mouth [place] 20 MG 00:00: daily. of tablet 00 Medicin e acetaminoph Yes 1{tbl} Take 1 Tab [facility] en-codeine 6-16 by mouth Colle ge (TYLENOL/CO [...] Pain. acetaminoph Yes 1{tbl} Take 1 Tab [facility] en-codeine 6-16 by mouth Colle ge (TYLENOL/CO 00:00: every 4 of DEINE #3) 00 hours as Medici n 300-30 MG needed for e per tablet Pain. acetaminoph Yes 1{tbl} Take 1 Tab [facility] en-codeine 6-16 by mouth Colle ge (TYLENOL/CO [...] Pain. acetaminoph Yes 1{tbl} Take 1 Tab [facility] en-codeine 6-16 by mouth Colle ge (TYLENOL/CO [...] Pain. acetaminoph Yes 1{tbl} Take 1 Tab [facility] en-codeine 6-16 by mouth Colle ge (TYLENOL/CO [...] [place] [facility] 00 Medical capsule [facility] dornase 2017-0 Yes 2.5mg Inhale 2.5 Uni vers br[facility]ani 2-24 mg. ity of (PULMOZYME) 00:00: [place] 1 mg/mL 00 [facility] nebulizer solution dornase Yes 2.5mg Inhale 2.5 [facility] 2-24 mg. ity of (PULMOZYME) 00:00: [place] 1 mg/mL 00 [facility] nebulizer solution dornase 2017 Yes 2.5mg Inhale 2.5 [facility] 2-24 mg. ity of (PULMOZYME) 00:00: [place] 1 mg/mL 00 [facility] nebulizer solution traMADOL 50 2020- No TAKE 2 Uni vers mg tablet 10-29-21 TABLET PO ity of 00:00: 00:00 Q 6 HOURS [place] [facility] 2020- No TAKE 2 Uni vers mg tablet 10-29-21 TABLET PO ity of 00:00: 00:00 Q 6 HOURS [place] 00 :00 [facility] BETHKIS 300 Yes Univer s mg/4 mL 1-21 ity of Nebu 00:00: [facility] BETHKIS 300 Yes Univer s mg/4 mL 1-21 ity of Nebu 00:00: [facility] BETHKIS 300 0 Yes Univer s mg/4 mL 1-21 ity of Nebu 00:00: [facility] sulfamethox 2016- No 1{tbl} Take 1 Tab [facility] azole-trime 11-05 by mouth Col lege thoprim 19:13: 00:00 two times of (BACTRIM 45 :00 daily. Medicin DS) 800-160 e MG per tablet cetirizine 2014-10 Yes Univers (ZYRTEC) 10 2-27 ity of mg tablet 00:00: [place] 00 [facility] cetirizine 2014-10 Yes [facility] (ZYRTEC) 10 2-27 ity of mg tablet 00:00: [place] 00 [facility] cetirizine 2014-10 Yes Univers (ZYRTEC) 10 2-27 ity of mg tablet 00:00: [place] 00 [facility] sodium 2015- No 1{spray 1 [place] by [facility] chloride 06-26 } Nasal [place] (NASAL) 18:18: 00:00 route as of 0.65 % 19 :00 needed for Medicin nasal spray Congestion e . fluticasone 2015- No 1{spray 1 [place] by [facility] (FLONASE) 06-26 } Each [facility] 50 MCG/ACT 18:18: 00:00 Nostril of nasal spray 10 :00 route Medicin daily. e levalbutero 2016- No [id number] Inhale 2 Jayesh l tartrate 04-30 07-15 puffs in [place] (XOPENEX 00:00: 00:00 am and pm. of HFA) 45 00 :00 May take Medicin MCG/ACT an e AERO additional inhaler 2 puffs throughout day if needed. Norethin-Et 2015- No [id number] 10ug Take 10 Jayesh h Estrad-Fe 6-12 12-24 mcg by [facility] ([place] 00:00: 00:00 mouth of LOESTRIN 00 :00 daily. Medicin FE) 1 MG-10 e MCG / 10 MCG TABS sodium 2015- No [id number] 4mL Take 1 [place] chloride, 03-12- Ampule by [facility] Inhalant, 00:00: 00:00 nebulizati o f (HYPERSAL) 00 :00 on two Medicin 7 % times e nebulizer daily. solution esomeprazol 2015- No [id number] 40mg Take 1 Cap [facility] e (NEXIUM) 03-12 by mouth [facility] 40 MG 00:00: 00:00 daily. of capsule 00 :00 Medicin e Multiple 2016- No [id number] 1{tbl} Take 1 [facility] Vitamins-Mi 03-12- tablet by Co llege nerals 00:00: 00:00 mouth two of (AQUADEKS) 00 :00 times Medicin CAPS daily. e dornase 2016- No [id number] 2.5mg Take 1 [facility] alpha - 01-12 Ampule by [place] (PULMOZYME) 00:00: 00:00 nebulizati of 1 MG/ML 00 :00 on two Medicin nebulizer times e solution daily. albuterol 2014- No [id number] USE ONE Jayesh (PROVENTIL) 03-12 08-17 VIAL IN [facility] (2.5 mg/3 00:00: 00:00 NEBULIZER of mL) 0.083% 00 :00 THREE Medicin nebulizer TIMES e solution DAILY NEEDED FOR SHORTNESS OF BREATH imipenem-ci 2014- No [id number] Infuse Jayesh lastatin 03-11-02 1000 mg College (PRIMAXIN) 00:00: 00:00 every 8 of 500 MG 00 :00 hours x 20 Medicin injection weeks. e tigecycline 2014- No [id number] Infuse 50 [facility] (TYGACIL) 03-11 09-02 mg daily x Col lege 50 MG 00:00: 00:00 20 weeks. of infusion 00 :00 Medicin e linezolid 2014- No [id number] 600mg Take 1 Tab Jayesh (ZYVOX) 600 02-22 08-12 by mouth Col lege MG tablet 00:00: 00:00 daily. of 00 :00 Medicin e insulin NPH 2016- No Inject 50 [facility] (HUMULIN 4-14 01-27 u AM and Colleg e N;NOVOLIN 00:00: 00:00 25u PM of N) 100 00 :00 Medicin UNIT/ML e injection NOVOLOG 2014- No [id number] 10U/d Inject [facility] FLEXPEN 100 3-27 07-14 10-60 Colleg e UNIT/ML 00:00: 00:00 Units/day of SOPN 00 :00 into the Medicin skin 3 e times daily (before meals). voriconazol 2015- No [id number] 200mg Take 1 Tab [facility] e (VFEND) -16 07-15 by mouth Colle ge 200 MG 00:00: 00:00 two times of tablet 00 :00 daily. Medicin e fluticasone 2015- No [id number] 1{puff} Inhale 1 [facility] -salmeterol 16 01-25 Puff by [place] [facility] (ADVAIR 00:00: 00:00 mouth two of DISKUS) 00 :00 times Medicin 500-50 daily. e MCG/DOSE Rinse and inhaler gargle with water afterwards . Insulin Pen 2016- No 7{each} 7 Each [facility] Needle (BD 12-12 daily. Colleg e PEN NEEDLE 00:00: 00:00 of SAIRA U/F) 00 :00 Medicin 32G X 4 MM e MISC ACCU-CHEK 2015- No Check [facility] SMARTVIEW 12-12 blood College 00:00: 00:00 sugar 5 of 00 :00 times per Medicin day e ACCU-CHEK 2015- No 150{eac 150 Each 5 [facility] FASTCLIX 12-12 h} times [place] LANCETS 00:00: 00:00 daily. of [facility] 00 :00 Check Medicin blood e sugar 5 times per day predniSONE 2014- No 3 tabs [facility] (DELTASONE) 12-12 daily x 1 Co llege 10 MG 00:00: 00:00 week, 2 of tablet 00 :00 tabs daily Medicin x 1 week, e 1 tab daily x 1 week then call office. Pancrelipas 2016- No [id number] Take 5 [facility] e, 11-26 with meals [place] Lip-Prot-Am 00:00: 00:00 and 2 with of yl, (CREON) 00 :00 [place] [address] UNITS e CPEP Glucagon, 2013-10- No [id number] 1{appli Inject 1 [facility] rDNA, 12-12 cator} Applicator Colle ge (GLUCAGON 00:00: 00:00 as of EMERGENCY) 00 :00 directed Medic in 1 MG KIT as needed. e zolpidem 2013-10- No 10mg Take 1 Tab [facility] (AMBIEN) 10 -13 05-05 by mouth Col lege MG tablet 00:00: 00:00 nightly as o f 00 :00 needed for Medicin Sleep. e colistimeth 2013-10 2015- No [id number] Infuse 100 [facility] ate 1-11 07-14 mg IV College (COLYMYCIN) 00:00: 00:00 every 8 of 150 MG 00 :00 hours. Medicin nebulizer e solution Cholecalcif 2015- No [id number] 1{capsu Take 1 [facility] gail 2000 06-30 10-03 le} capsule by Col lege UNITS TABS 00:00: 00:00 mouth of 00 :00 daily. Medicin e Fluticasone 2015- No [id number] 2{squir 2 Squirts [facility] Furoate 06-30 0714 t} by Each [place] 27.5 00:00: 00:00 Nostril of MCG/SPRAY 00 :00 route Medicin SUSP daily. e Ergocalcife 2014- No 1{tbl} Take 1 Tab [facility] rol [id number] 06-13 by mouth Colle ge UNITS CAPS 00:00: 00:00 every 7 of 00 :00 days. Medicin e Guaifenesin 2015- No Take 1-2 [facility] -Codeine 01-19 teaspoons Colle [facility] (CHERATUSSI 00:00: 00:00 (5-10 mls) of N AC) 00 :00 for cough Medicin 100-10 at night. e MG/5ML liquid Nutritional 2014- No 4{can} Take 4 [facility] Supplements 10-26-17 Cans by [place] (BOOST 00:00: 00:00 mouth four of PLUS) LIQD 00 :00 times Medicin daily. e Tobramycin 2014- No 4{capsu 4 capsules [facility] (KEREN 04-19 le} by [place] SHANE) 00:00: 00:00 Inhalation o f 28 MG CAPS 00 :00 route two Medi [place] times e daily. Alternate 28 days on and 28 days off. Immunizations Ordered Filled Immunization Date Status Comments [facility] e Immunization Name Name [employer] SARS-CoV-2 2021-01-02 Completed [facility] of Vaccination 00:00:00 Medicine Influenza Virus 2019-07-18 Completed [facility] Vaccine 00:00:00 [facility] Influenza Virus 2019-07-18 Completed [facility] Vaccine 00:00:00 [facility] Influenza Virus 2019-07-18 Completed [facility] Vaccine 00:00:00 [facility] Influenza Quad-PF 2019-07-18 Completed [facility] 00:00:00 Medicine Influenza Quad-PF 2019-07-18 Completed [facility] 00:00:00 Medicine Influenza Quad-PF 2019-07-18 Completed [facility] 00:00:00 Medicine Influenza Quad-PF 2019-07-18 Completed [facility] 00:00:00 Medicine Influenza Quad-PF 2019-07-18 Completed [facility] 00:00:00 Medicine Influenza Quad-PF 2019-07-18 Completed [facility] 00:00:00 Medicine Influenza Quad-PF 2019-07-18 Completed [facility] 00:00:00 Medicine Influenza Quad-PF 2019-07-18 Completed [facility] 00:00:00 Medicine Influenza Virus 2018-08-16 Completed [facility] Vaccine 00:00:00 [facility] Influenza Virus 2018-08-16 Completed [facility] Vaccine 00:00:00 [facility] Influenza Virus 2018-08-16 Completed [facility] Vaccine 00:00:00 [facility] TDAP 2018-01-12 Completed [facility] of 00:00:00 [facility] TDAP 2018-01-12 Completed [facility] 00:00:00 [facility] TDAP 2018-01-12 Completed [facility] 00:00:00 [facility] Influenza Virus 2017-10-08 Completed [facility] Vaccine 00:00:00 [facility] Influenza Virus 2017-10-08 Completed [facility] Vaccine 00:00:00 [facility] Influenza Virus 2017-10-08 Completed [facility] Vaccine 00:00:00 [facility] Influenza Quad-PF 2017-10-08 Completed [facility] 00:00:00 Medicine Influenza Quad-PF 2017-10-08 Completed [facility] 00:00:00 Medicine Influenza Quad-PF 2017-10-08 Completed [facility] 00:00:00 Medicine Influenza Quad-PF 2017-10-08 Completed [facility] 00:00:00 Medicine Influenza Quad-PF 2017-10-08 Completed [facility] 00:00:00 Medicine Influenza Quad-PF 2017-10-08 Completed [facility] 00:00:00 Medicine Influenza Quad-PF 2017-10-08 Completed [facility] 00:00:00 Medicine Influenza Quad-PF 2017-10-08 Completed [facility] 00:00:00 Medicine Influenza Quad-PF 2017-10-08 Completed [facility] 00:00:00 Medicine Influenza Virus 2016-08-08 Completed [facility] Vaccine 00:00:00 [facility] Influenza Virus 2016-08-08 Completed [facility] Vaccine 00:00:00 [facility] Influenza Virus 2016-08-08 Completed [facility] Vaccine 00:00:00 [facility] HPV9 2016-05-22 Completed [facility] of 00:00:00 [facility] HPV9 2016-05-22 Completed [facility] 00:00:00 [facility] HPV9 2016-05-22 Completed [facility] 00:00:00 [facility] HPV9 2016-01-21 Completed [facility] 00:00:00 [facility] HPV9 2016-01-21 Completed [facility] 00:00:00 [facility] HPV9 2016-01-21 Completed [facility] 00:00:00 [facility] HPV9 2015-11-22 Completed [facility] 00:00:00 [facility] HPV9 2015-11-22 Completed [facility] of 00:00:00 [facility] HPV9 2015-11-22 Completed [facility] 00:00:00 [facility] Influenza Virus 2015-08-05 Completed [facility] Vaccine 00:00:00 [facility] Pneumococcal 13 2015-08-05 Completed [facility] of Conjugate, PCV13 00:00:00 [facility] (Prevnar 13) [place] Influenza Virus 2015-08-05 Completed [facility] Vaccine 00:00:00 [facility] Pneumococcal 13 2015-08-05 Completed [facility] of Conjugate, PCV13 00:00:00 [facility] (Prevnar 13) [place] Influenza Virus 2015-08-05 Completed [facility] Vaccine 00:00:00 [facility] Pneumococcal 13 2015-08-05 Completed [facility] of Conjugate, PCV13 00:00:00 [facility] (Prevnar 13) [place] Influenza Virus 2012-08-30 Completed [facility] Vaccine 00:00:00 [facility] Influenza Virus 2012-08-30 Completed [facility] of Vaccine (3+ yrs) 00:00:00 [facility] Influenza Virus 2012-08-30 Completed [facility] of Vaccine 00:00:00 [facility] Influenza Virus 2012-08-30 Completed [facility] Vaccine (3+ yrs) 00:00:00 [facility] Influenza Virus 2012-08-30 Completed [facility] Vaccine 00:00:00 [facility] Influenza Virus 2012-08-30 Completed [facility] Vaccine (3+ yrs) 00:00:00 [facility] Influenza (whole) 2012-08-30 Completed [facility] of 00:00:00 Medicine Influenza (whole) 2012-08-30 Completed [facility] of 00:00:00 Medicine Influenza (whole) 2012-08-30 Completed [facility] 00:00:00 Medicine Influenza (whole) 2012-08-30 Completed [facility] 00:00:00 Medicine Influenza (whole) 2012-08-30 Completed [facility] 00:00:00 Medicine Influenza (whole) 2012-08-30 Completed [facility] 00:00:00 Medicine Influenza (whole) 2012-08-30 Completed [facility] 00:00:00 Medicine Influenza (whole) 2012-08-30 Completed [facility] of 00:00:00 Medicine Influenza (whole) 2012-08-30 Completed [facility] 00:00:00 Medicine Influenza (whole) 2012-08-30 Completed [facility] 00:00:00 Medicine Influenza Virus 2011-11-27 Completed [facility] Vaccine 00:00:00 [facility] Influenza Virus 2011-11-27 Completed [facility] Vaccine (3+ yrs) 00:00:00 [facility] Influenza Virus 2011-11-27 Completed [facility] Vaccine 00:00:00 [facility] Influenza Virus 2011-11-27 Completed [facility] Vaccine (3+ yrs) 00:00:00 [facility] Influenza Virus 2011-11-27 Completed [facility] Vaccine 00:00:00 [facility] Influenza Virus 2011-11-27 Completed [facility] Vaccine (3+ yrs) 00:00:00 [facility] Influenza Virus 2011-08-14 Completed [facility] Vaccine 00:00:00 [facility] Influenza Virus 2011-08-14 Completed [facility] Vaccine (3+ yrs) 00:00:00 [facility] Influenza Virus 2011-08-14 Completed [facility] Vaccine 00:00:00 [facility] Influenza Virus 2011-08-14 Completed [facility] Vaccine (3+ yrs) 00:00:00 [facility] Influenza Virus 2011-08-14 Completed [facility] Vaccine 00:00:00 [facility] Influenza Virus 2011-08-14 Completed [facility] Vaccine (3+ yrs) 00:00:00 [facility] Influenza Virus 2010-11-15 Completed [facility] Vaccine 00:00:00 [facility] Influenza Virus 2010-11-15 Completed [facility] Vaccine (3+ yrs) 00:00:00 [facility] Influenza Virus 2010-11-15 Completed [facility] Vaccine 00:00:00 [facility] Influenza Virus 2010-11-15 Completed [facility] Vaccine (3+ yrs) 00:00:00 [facility] Influenza Virus 2010-11-15 Completed [facility] Vaccine 00:00:00 [facility] Influenza Virus 2010-11-15 Completed [facility] Vaccine (3+ yrs) 00:00:00 [facility] H1n1 Vaccine 2009-10-08 Completed [facility] o f 00:00:00 [facility] Influenza Virus 2009-10-08 Completed [facility] Vaccine 00:00:00 [facility] H1n1 Vaccine 2009-10-08 Completed [facility] f 00:00:00 [facility] Influenza Virus 2009-10-08 Completed [facility] Vaccine (3+ yrs) 00:00:00 [facility] H1n1 Vaccine 2009-10-08 Completed [facility] o f 00:00:00 [facility] Influenza Virus 2009-10-08 Completed [facility] Vaccine 00:00:00 [facility] H1n1 Vaccine 2009-10-08 Completed [facility] o f 00:00:00 [facility] Influenza Virus 2009-10-08 Completed [facility] Vaccine (3+ yrs) 00:00:00 [facility] H1n1 Vaccine 2009-10-08 Completed [facility] o f 00:00:00 [facility] Influenza Virus 2009-10-08 Completed [facility] Vaccine 00:00:00 [facility] H1n1 Vaccine 2009-10-08 Completed [facility] o f 00:00:00 [facility] Influenza Virus 2009-10-08 Completed [facility] Vaccine (3+ yrs) 00:00:00 [facility] Influenza Virus 2008-08-07 Completed [facility] Vaccine 00:00:00 [facility] Influenza Virus 2008-08-07 Completed [facility] Vaccine (3+ yrs) 00:00:00 [facility] Influenza Virus 2008-08-07 Completed [facility] Vaccine 00:00:00 [facility] Influenza Virus 2008-08-07 Completed [facility] Vaccine (3+ yrs) 00:00:00 [facility] Influenza Virus 2008-08-07 Completed [facility] Vaccine 00:00:00 [facility] Influenza Virus 2008-08-07 Completed [facility] Vaccine (3+ yrs) 00:00:00 [facility] Td 2006-10-25 Completed [facility] of 00:00:00 [facility] Td 2006-10-25 Completed [facility] of 00:00:00 [facility] Td 2006-10-25 Completed [facility] of 00:00:00 [facility] Influenza Virus 2006-09-14 Completed [facility] Vaccine 00:00:00 [facility] Influenza Virus 2006-09-14 Completed [facility] Vaccine (3+ yrs) 00:00:00 [facility] Influenza Virus 2006-09-14 Completed [facility] Vaccine 00:00:00 [facility] Influenza Virus 2006-09-14 Completed [facility] Vaccine (3+ yrs) 00:00:00 [facility] Influenza Virus 2006-09-14 Completed [facility] of Vaccine 00:00:00 [facility] Influenza Virus 2006-09-14 Completed [facility] Vaccine (3+ yrs) 00:00:00 [facility] Influenza Virus 2005-10-02 Completed [facility] Vaccine 00:00:00 [facility] Influenza Virus 2005-10-02 Completed [facility] Vaccine (3+ yrs) 00:00:00 [facility] Influenza Virus 2005-10-02 Completed [facility] Vaccine 00:00:00 [facility] Influenza Virus 2005-10-02 Completed [facility] of Vaccine (3+ yrs) 00:00:00 [facility] Influenza Virus 2005-10-02 Completed [facility] of Vaccine 00:00:00 [facility] Influenza Virus 2005-10-02 Completed [facility] of Vaccine (3+ yrs) 00:00:00 [facility] Influenza Virus 2003-08-30 Completed [facility] of Vaccine 00:00:00 [facility] Influenza Virus 2003-08-30 Completed [facility] of Vaccine (3+ yrs) 00:00:00 [facility] Influenza Virus 2003-08-30 Completed [facility] of Vaccine 00:00:00 [facility] Influenza Virus 2003-08-30 Completed [facility] of Vaccine (3+ yrs) 00:00:00 [facility] Influenza Virus 2003-08-30 Completed [facility] Vaccine 00:00:00 [facility] Influenza Virus 2003-08-30 Completed [facility] of Vaccine (3+ yrs) 00:00:00 [facility] dical Branch DTAP 1997-06-18 Completed University of 00:00:00 [facility] MMR 1997-06-18 Completed [facility] of 00:00:00 [facility] OPV 1997-06-18 Completed [facility] of 00:00:00 [facility] Polio (IPV/OPV) 1997-06-18 Completed [facility] of 00:00:00 [facility] DTAP 1997-06-18 Completed [facility] 00:00:00 [facility] MMR 1997-06-18 Completed [facility] of 00:00:00 [facility] OPV 1997-06-18 Completed [facility] of 00:00:00 [facility] Polio (IPV/OPV) 1997-06-18 Completed [facility] of 00:00:00 [facility] DTAP 1997-06-18 Completed [facility] of 00:00:00 [facility] MMR 1997-06-18 Completed [facility] of 00:00:00 [facility] OPV 1997-06-18 Completed [facility] of 00:00:00 [facility] Polio (IPV/OPV) 1997-06-18 Completed [facility] of 00:00:00 [facility] Vital Signs Vital Name Observation Time Observation Value Comments Source Systolic blood 2021-10-14 15:21:00 116 mm[Hg] Univer sity of pressure [facility] Diastolic blood 2021-10-14 15:21:00 79 mm[Hg] Unive rsity of pressure [facility] Heart rate 2021-10-14 15:21:00 114 /min [facility] Respiratory rate 2021-10-14 15:21:00 18 /min Univ ersity of [facility] Body height 2021-10-14 15:21:00 157.5 cm [facility] Body weight 2021-10-14 15:21:00 46.267 kg [facility] BMI 2021-10-14 15:21:00 18.66 kg/m2 [facility] Oxygen saturation in 2021-10-14 15:21:00 98 /min [facility] Arterial blood by [facility] Pulse oximetry Branch Systolic blood 2021-01-06 16:07:00 144 mm[Hg] [employer] [facility] pressure Medicine Diastolic blood 2021-01-06 16:07:00 93 mm[Hg] [facility] pressure Medicine Heart rate 2021-01-06 16:07:00 114 /min [facility] ol[facility] of [facility] Body temperature 2021-01-06 16:07:00 37.5 Monica [facility] Respiratory rate 2021-01-06 16:07:00 18 /min [facility] Body height 2021-01-06 16:07:00 [facility]3 [facility] Body weight 2021-01-06 16:07:00 47.854 [facility] BMI 2021-01-06 16:07:00 19.34 kg/m2 [facility] Systolic blood 2019-12-21 15:41:00 95 mm[Hg] [facility] pressure Medicine Diastolic blood 2019-12-21 15:41:00 67 mm[Hg] [facility] Medicine Heart rate 2019-12-21 15:41:00 110 /min [facility] Body temperature 2019-12-21 15:41:00 36.78 Monica [facility] Respiratory rate 2019-12-21 15:41:00 18 /min [facility] Body height 2019-12-21 15:41:00 154.9 [facility] Body weight 2019-12-21 15:41:00 49.533 [facility] BMI 2019-12-21 15:41:00 20.63 [facility]2 [facility] Systolic blood 2019-12-21 15:41:00 95 mm[Hg] [facility] pressure Medicine Diastolic blood 2019-12-21 15:41:00 67 mm[Hg] [facility] pressure Medicine Heart rate 2019-12-21 15:41:00 110 /min [facility] Body temperature 2019-12-21 15:41:00 36.78 Monica [facility] Respiratory rate 2019-12-21 15:41:00 18 /min [facility] Body height 2019-12-21 15:41:00 154.9 cm [facility] Body weight 2019-12-21 15:41:00 49.533 kg [facility] of Medicine BMI 2019-12-21 15:41:00 20.63 kg/m2 [facility] of Medicine Systolic blood 2019-08-29 19:18:00 141 mm[Hg] [facility] of pressure Medicine Diastolic blood 2019-08-29 19:18:00 95 mm[Hg] [facility] pressure Medicine Heart rate 2019-08-29 19:18:00 130 /min [facility] Medicine Body temperature 2019-08-29 19:18:00 36.83 Monica [facility] Respiratory rate 2019-08-29 19:18:00 18 /min [facility] Body height 2019-08-29 19:18:00 154.9 cm [facility] Body weight 2019-08-29 19:18:00 50.168 kg [facility] Medicine BMI 2019-08-29 19:18:00 20.90 kg[facility]m2 [facility] Systolic blood 2019-08-29 19:18:00 141 mm[Hg] [facility] of pressure Medicine Diastolic blood 2019-08-29 19:18:00 95 mm[Hg] [facility] pressure Medicine Heart rate 2019-08-29 19:18:00 130 /min [facility] Medicine Body temperature 2019-08-29 19:18:00 36.83 Monica [facility] Respiratory rate 2019-08-29 19:18:00 18 /min [facility] Body height 2019-08-29 19:18:00 154.9 cm [facility] Medicine Body weight 2019-08-29 19:18:00 50.168 kg [facility] Medicine BMI 2019-08-29 19:18:00 20.90 kg[facility]m2 [facility] Systolic blood 2019-08-24 13:09:00 140 mm[Hg] [facility] of pressure Medicine Diastolic blood 2019-08-24 13:09:00 102 mm[Hg] [facility] of pressure Medicine Heart rate 2019-08-24 13:09:00 131 /min [facility] Medicine Body height 2019-08-24 13:09:00 154.9 cm [facility] Body weight 2019-08-24 13:09:00 49.079 kg [facility] ollege of Medicine BMI 2019-08-24 13:09:00 20.44 kg/m2 [facility] ollege of Medicine Systolic blood 2019-08-24 13:09:00 140 mm[Hg] [facility] of pressure Medicine Diastolic blood 2019-08-24 13:09:00 102 mm[Hg] [facility] of pressure Medicine Heart rate 2019-08-24 13:09:00 131 /min [facility] ol[facility] of Medicine Body height 2019-08-24 13:09:00 154.9 cm [facility] ol[facility] of Medicine Body weight 2019-08-24 13:09:00 49.079 kg [facility] ol[facility] of Medicine BMI 2019-08-24 13:09:00 20.44 kg/m2 [facility] ol[facility] of Medicine Systolic blood 2019-08-16 17:59:00 98 mm[Hg] [facility] of pressure Medicine Diastolic blood 2019-08-16 17:59:00 62 mm[Hg] [facility] of pressure Medicine Heart rate 2019-08-16 17:59:00 120 /min [facility] ol[facility] of Medicine Body height 2019-08-16 17:59:00 154.9 cm [facility] ol[facility] of Medicine Body weight 2019-08-16 17:59:00 52.164 kg [facility] of Medicine BMI 2019-08-16 17:59:00 21.73 kg/m2 [facility] of Medicine Systolic blood 2019-08-16 17:59:00 98 mm[Hg] [facility] of pressure Medicine Diastolic blood 2019-08-16 17:59:00 62 mm[Hg] [facility] of pressure Medicine Heart rate 2019-08-16 17:59:00 120 /min [facility] ol[facility] of Medicine Body height 2019-08-16 17:59:00 154.9 cm [facility] ol[facility] of Medicine Body weight 2019-08-16 17:59:00 52.164 kg [facility] ol[facility] of Medicine BMI 2019-08-16 17:59:00 21.73 kg/m2 [facility] ol[facility] of Medicine Systolic blood 2019-08-02 19:56:00 112 mm[Hg] [facility] of pressure Medicine Diastolic blood 2019-08-02 19:56:00 62 mm[Hg] [facility] of pressure Medicine Heart rate 2019-08-02 19:56:00 82 /min [facility] ol[facility] of Medicine Body height 2019-08-02 19:56:00 154.9 cm [facility] of Medicine Body weight 2019-08-02 19:56:00 50.349 kg [facility] Medicine BMI 2019-08-02 19:56:00 20.97 kg/m2 [facility] of Medicine Systolic blood 2019-08-02 19:56:00 112 mm[Hg] [facility] of pressure Medicine Diastolic blood 2019-08-02 19:56:00 62 mm[Hg] [facility] of pressure Medicine Heart rate 2019-08-02 19:56:00 82 /min [facility] Medicine Body height 2019-08-02 19:56:00 154.9 cm [facility] Medicine Body weight 2019-08-02 19:56:00 50.349 kg [facility] Medicine BMI 2019-08-02 19:56:00 20.97 kg/m2 [facility] Medicine Systolic blood 2019-07-24 14:32:00 136 mm[Hg] [facility] of pressure Medicine Diastolic blood 2019-07-24 14:32:00 84 mm[Hg] [facility] pressure Medicine Heart rate 2019-07-24 14:32:00 118 /min [facility] Medicine Body temperature 2019-07-24 14:32:00 36.89 Monica [facility] Respiratory rate 2019-07-24 14:32:00 16 /min [facility] Body height 2019-07-24 14:32:00 154.9 cm [facility] Medicine Body weight 2019-07-24 14:32:00 49.986 kg [facility] Medicine BMI 2019-07-24 14:32:00 20.82 kg/m2 [facility] Medicine Oxygen saturation in 2019-07-24 14:32:00 94 /min [facility] of Arterial blood by Medicine Pulse oximetry Systolic blood 2019-07-24 14:32:00 136 mm[Hg] [facility] of pressure Medicine Diastolic blood 2019-07-24 14:32:00 84 mm[Hg] [facility] of pressure Medicine Heart rate 2019-07-24 14:32:00 118 /min [facility] Body temperature 2019-07-24 14:32:00 36.89 Monica [facility] Respiratory rate 2019-07-24 14:32:00 16 /min [facility] or [facility] Body height 2019-07-24 14:32:00 154.9 [facility] Body weight 2019-07-24 14:32:00 49.986 [facility] BMI 2019-07-24 14:32:00 20.82 kg/m2 [facility] Oxygen saturation in 2019-07-24 14:32:00 94 /min [facility] blood by [facility] Pulse oximetry Systolic blood 2019-07-18 18:28:00 136 mm[Hg] [facility] pressure Medicine Diastolic blood 2019-07-18 18:28:00 90 mm[Hg] [facility] pressure Medicine Heart rate 2019-07-18 18:28:00 125 /min [facility] Body temperature 2019-07-18 18:28:00 36.94 Monica [facility] or [facility] Respiratory rate 2019-07-18 18:28:00 16 /min [facility] Body height 2019-07-18 18:28:00 154.9 cm [facility] of [facility] Body weight 2019-07-18 18:28:00 48.988 kg [facility] BMI 2019-07-18 18:28:00 20.41 kg/m2 [facility] Systolic blood 2019-07-18 18:28:00 136 mm[Hg] [facility] of pressure Medicine Diastolic blood 2019-07-18 18:28:00 90 mm[Hg] [facility] of pressure Medicine Heart rate 2019-07-18 18:28:00 125 /min [facility] Body temperature 2019-07-18 18:28:00 36.94 Monica [facility] or [facility] Respiratory rate 2019-07-18 18:28:00 16 /min [facility] Body height 2019-07-18 18:28:00 154.9 cm [facility] Body weight 2019-07-18 18:28:00 48.988 kg [facility] BMI 2019-07-18 18:28:00 20.41 kg/m2 [facility] Systolic blood 2019-05-19 16:16:00 132 mm[Hg] [facility] of pressure Medicine Diastolic blood 2019-05-19 16:16:00 94 mm[Hg] [facility] Medicine Heart rate 2019-05-19 16:16:00 124 /min [facility] Body temperature 2019-05-19 16:16:00 37 Monica [facility] Respiratory rate 2019-05-19 16:16:00 16 /min [facility] Body height 2019-05-19 16:16:00 154.9 [facility] Body weight 2019-05-19 16:16:00 46.902 [facility] BMI 2019-05-19 16:16:00 19.54 kg/m2 [facility] Systolic blood 2019-05-19 16:16:00 132 mm[Hg] [facility] Medicine Diastolic blood 2019-05-19 16:16:00 94 mm[Hg] [facility] Medicine Heart rate 2019-05-19 16:16:00 124 /min [facility] Body temperature 2019-05-19 16:16:00 37 Monica [facility] Respiratory rate 2019-05-19 16:16:00 16 /min [facility] Body height 2019-05-19 16:16:00 154.9 cm [facility] [facility] Body weight 2019-05-19 16:16:00 46.902 [facility] BMI 2019-05-19 16:16:00 19.54 kg/m2 [facility] Systolic blood 2015-05-07 14:07:00 102 mm[Hg] [facility] pressure Medicine Diastolic blood 2015-05-07 14:07:00 62 mm[Hg] [facility] pressure Medicine Heart rate 2015-05-07 14:07:00 116 /min [facility] Body temperature 2015-05-07 14:07:00 37.11 Monica [facility] Respiratory rate 2015-05-07 14:07:00 20 /min [facility] Body height 2015-05-07 14:07:00 157.5 cm [facility] Body weight 2015-05-07 14:07:00 43.545 kg [facility] BMI 2015-05-07 14:07:00 17.56 kg/m2 [facility] Systolic blood 2015-05-07 14:07:00 102 mm[Hg] [facility] pressure Medicine Diastolic blood 2015-05-07 14:07:00 62 mm[Hg] [facility] Heart rate 2015-05-07 14:07:00 116 /min [facility] Body temperature 2015-05-07 14:07:00 37.11 Monica [facility] Respiratory rate 2015-05-07 14:07:00 20 /min [facility] Body height 2015-05-07 14:07:00 157.5 cm [facility] Body weight 2015-05-07 14:07:00 43.545 kg [facility] BMI 2015-05-07 14:07:00 17.56 kg/m2 [facility] Procedures Procedure Date / Time Performed Performing Clinician [facility] e SPIROMETRY (IN CLINIC) 2021-01-06 16:23:00 Marco Smith [facility] SPIROMETRY (IN CLINIC) 2019-12-21 00:00:00 Tere Diaz [facility] SPIROMETRY (IN CLINIC) 2019-08-29 00:00:00 Tere Diaz [facility] POCT REAGENT STP/BLD 2019-08-16 08:00:00 Jenny Morgan [facility] POCT KETONE, BLOOD 2019-08-02 20:19:00 Jenny Morgan [facility] POCT REAGENT STP/BLD 2019-08-02 20:10:00 Jenny Morgan [facility] GLUCOSE [facility] Medicine SPIROMETRY (IN CLINIC) 2019-07-18 18:39:00 Chino Waller [facility] SPIROMETRY (IN CLINIC) 2015-06-14 21:42:43 Marco Smith [facility] Plan of Care Planned Activity Planned Date Details Comments Source Future Scheduled ANNUAL DIABETIC [facility] C ollege of Test RETINOPATHY Medicine SCREENING [code = ANNUAL DIABETIC RETINOPATHY SCREENING] Future Scheduled CERVICAL CANCER [facility] C [facility]lege of Test SCREENING 3 YEAR Medicine FOLLOW UP [code = CERVICAL CANCER SCREENING 3 YEAR FOLLOW UP] Future Scheduled A1C TESTING EVERY 6 [employer] [facility] Test MONTHS [code = A1C Medicine TESTING EVERY 6 MONTHS] Future Scheduled Diabetic foot [facility] Col lege of Test examination Medicine (regime/therapy) [code = 928441238] Future Scheduled TETANUS SHOT (ADULT) [facility] of Test [code = TETANUS SHOT Medicin e (ADULT)] Future Scheduled ANNUAL DIABETIC [facility] C [facility]lege of Test RETINOPATHY Medicine SCREENING [code = ANNUAL DIABETIC RETINOPATHY SCREENING] Future Scheduled CERVICAL CANCER [facility] C ollege of Test SCREENING 3 YEAR Medicine FOLLOW UP [code = CERVICAL CANCER SCREENING 3 YEAR FOLLOW UP] Future Scheduled A1C TESTING EVERY 6 [employer] MONTHS [code = A1C Medicine TESTING EVERY 6 MONTHS] Future Scheduled Diabetic foot [facility] Col lege of Test examination Medicine (regime/therapy) [code = 338185344] Future Scheduled TETANUS SHOT (ADULT) [facility] Test [code = TETANUS SHOT Medicin e (ADULT)] Future Scheduled ANNUAL DIABETIC [facility] C [facility]lege of Test RETINOPATHY Medicine SCREENING [code = ANNUAL DIABETIC RETINOPATHY SCREENING] Future Scheduled A1C TESTING EVERY 6 [employer] MONTHS [code = A1C Medicine TESTING EVERY 6 MONTHS] Future Scheduled Diabetic foot [facility] of Test examination Medicine (regime/therapy) [code = 097797940] Future Scheduled CERVICAL CANCER [facility] C ollege of Test SCREENING 3 YEAR Medicine FOLLOW UP [code = CERVICAL CANCER SCREENING 3 YEAR FOLLOW UP] Future Scheduled TETANUS SHOT (ADULT) [facility] Test [code = TETANUS SHOT Medicin e (ADULT)] Future Scheduled ANNUAL DIABETIC [facility] of Test RETINOPATHY Medicine SCREENING [code = ANNUAL DIABETIC RETINOPATHY SCREENING] Future Scheduled A1C TESTING EVERY 6 [employer] MONTHS [code = A1C Medicine TESTING EVERY 6 MONTHS] Future Scheduled Diabetic foot [facility] Col [facility] of Test examination Medicine (regime/therapy) [code = 159036636] Future Scheduled CERVICAL CANCER [facility] ollege of Test SCREENING 3 YEAR Medicine FOLLOW UP [code = CERVICAL CANCER SCREENING 3 YEAR FOLLOW UP] Future Scheduled TETANUS SHOT (ADULT) [facility] Test [code = TETANUS SHOT Medicin e (ADULT)] Future Scheduled ANNUAL DIABETIC [facility] C [facility]lege of Test RETINOPATHY Medicine SCREENING [code = ANNUAL DIABETIC RETINOPATHY SCREENING] Future Scheduled A1C TESTING EVERY 6 [facility] of Test MONTHS [code = A1C Medicine TESTING EVERY 6 MONTHS] Future Scheduled Diabetic foot [facility] Col [facility] of Test examination Medicine (regime/therapy) [code = 133253665] Future Scheduled CERVICAL CANCER [facility] ollege of Test SCREENING 3 YEAR Medicine FOLLOW UP [code = CERVICAL CANCER SCREENING 3 YEAR FOLLOW UP] Future Scheduled TETANUS SHOT (ADULT) [facility] Test [code = TETANUS SHOT Medicin e (ADULT)] Future Scheduled ANNUAL DIABETIC [facility] C [facility] of Test RETINOPATHY Medicine SCREENING [code = ANNUAL DIABETIC RETINOPATHY SCREENING] Future Scheduled A1C TESTING EVERY 6 [facility] [place] of Test MONTHS [code = A1C Medicine TESTING EVERY 6 MONTHS] Future Scheduled Diabetic foot [facility] Col [facility] of Test examination Medicine (regime/therapy) [code = 458525976] Future Scheduled CERVICAL CANCER [facility] ollege of Test SCREENING 3 YEAR Medicine FOLLOW UP [code = CERVICAL CANCER SCREENING 3 YEAR FOLLOW UP] Future Scheduled TETANUS SHOT (ADULT) [facility] Test [code = TETANUS SHOT Medicin e (ADULT)] Future Scheduled HEPATIC FUNCTION Ordered: [facility] Test PANEL [code = 12/21/2019 Medicine 09395-2] Future Scheduled HEMOGLOBIN A1C [code Ordered: [facility] Test = 4548-4] 12/21/2019 Medicine Future Scheduled TETANUS SHOT (ADULT) [facility] of Test [code = TETANUS SHOT Medicin e (ADULT)] Future Scheduled CERVICAL CANCER [facility] ollege of Test SCREENING 3 YEAR Medicine FOLLOW UP [code = CERVICAL CANCER SCREENING 3 YEAR FOLLOW UP] Future Scheduled TETANUS SHOT (ADULT) [facility] Test [code = TETANUS SHOT Medicin e (ADULT)] Future Scheduled FLU VACCINE > 6 [facility] C [facility]lege of Test MONTHS [code = FLU Medicine VACCINE > 6 MONTHS] Future Scheduled CERVICAL CANCER [facility] ollege of Test SCREENING 3 YEAR Medicine FOLLOW UP [code = CERVICAL CANCER SCREENING 3 YEAR FOLLOW UP] Future Scheduled ZOSTER VACCINE (1 of [facility] of Test 2) [code = ZOSTER Medicine VACCINE (1 of 2)] Future Scheduled HEMOGLOBIN A1C [code Ordered: [facility] Test = 4548-4] 01/06/2021 Medicine Future Scheduled ACID FAST CULTURE Ordered: [facility] Test [code = 543-9] 01/06/2021 Medicine Future Scheduled CULTURE, Ordered: [facility] ege of Test RESPIRATORY, CYSTIC 01/06/2021 Medicine FIBROSIS [code = NOCPT] Future Scheduled FUNGAL CULTURE [code Ordered: [facility] Test = 601-5] 01/06/2021 Medicine Future Scheduled FLU VACCINE > 6 [facility] ol[facility] of Test MONTHS [code = FLU Medicine VACCINE > 6 MONTHS] Future Scheduled COVID-19 Vaccine (2 [facility] of Test - Pfizer 2-dose Medicine series) [code = COVID-19 Vaccine (2 - Pfizer 2-dose series)] Future Scheduled Screening for [facility] Col lege of Test malignant neoplasm Medicine of cervix (procedure) [code = 578871337] Future Scheduled TETANUS SHOT (ADULT) [facility] Test [code = TETANUS SHOT Medicin e (ADULT)] Future Scheduled SLEEP EQUIPMENT Ordered: [facility] ollege of Test DOWNLOAD [code = 05/19/2019 Medicine NOCPT] Future Scheduled ANNUAL DIABETIC [facility] C [facility]lege of Test RETINOPATHY Medicine SCREENING [code = ANNUAL DIABETIC RETINOPATHY SCREENING] Future Scheduled CERVICAL CANCER [facility] ollege of Test SCREENING 3 YEAR Medicine FOLLOW UP [code = CERVICAL CANCER SCREENING 3 YEAR FOLLOW UP] Future Scheduled A1C TESTING EVERY 6 [facility] Test MONTHS [code = A1C Medicine TESTING EVERY 6 MONTHS] Future Scheduled FLU VACCINE > 6 [facility] C [facility]lege of Test MONTHS [code = FLU Medicine VACCINE > 6 MONTHS] Future Scheduled Diabetic foot [facility] Col lege of Test examination Medicine (regime/therapy) [code = [id number]] Future Scheduled TETANUS SHOT (ADULT) [facility] Test [code = TETANUS SHOT Medicin e (ADULT)] Encounters Start End Encounter Admission Attending Care Care Encounter Source Date/Time Date/Time Type Type Clinicians Facility Department ID 2021-10-24 2021-10-24 Outpatient [facility] [id number] [facility] 11:30:00 11:30:00 [id number] [facility] 2021-10-24 2021-10-24 Outpatient [facility] [id number] [facility] 11:30[facility]00 [facility]-10-15 2021-10-15 [facility] [id number] [facility] 00:00:00 00:00:00 Management Danielle ONEIL 350.1.13.10 ity [facility] [place] [id number] [place] dical [address] 2021-10-14 2021-10-14 Office Eligio [facility] [id number] Univers 09:15:00 09:38:09 Visit Danielle ONEIL 350.1.13.10 [facility] [place] [id number] Az dical NAL [address] [place] [address] 2021-10-14 2021-10-14 [facility] [id number] Univers 09:15:00 09:38:[address] [facility] 2021-06-13 2021-06-13 Outpatient [facility] [id number] [facility] 09:57:28 13:52:18 Colleg e of Medicin e 2021-05-21 2021-05-21 Nurse Nurse, [facility] [id number] 14:37:06 14:54:54 Visit Pranav Oneil 350.1.13.10 [facility] 4.2.7.2.686 Professio [id number] [address] 2021-05-19 2021-05-19 Outpatient MARCO SMITH Alvino [facility] [id number] [facility] 11:41:53 12:08:43 Colleg e of Medicin e 2021-04-22 2021-04-22 Outpatient SOWMYA DIAZ [id number] [facility] 12:53:55 13:09:22 TERE Colleg e of Medicin e 2021-01-06 2021-01-06 Office Marco Smith [facility] 1.2.840.114 [id number] [facility] 11:00:57 11:15:57 Visit AMBULATOR 350.1.13.21 College Y 0.2.7.2.686 of [id number] Medi [place] 350 e 2021-01-06 2021-01-06 [facility] [id number] SLE 00:00:00 00:00:00 2020-04-04 2020-04-04 Outpatient TO RAMIREZ [facility] [id number] SLE 00:00:00 00:00:00 NICOLAAS 2019-12-21 2019-12-21 Office SOWMYA Diaz [id number] [facility] 09:34:23 09:49:23 Visit Tere AMBULATOR 350.1.13.21 College Y 0.2.7.2.686 of [id number] Medi [place] 350 e 2019-12-21 2019-12-21 Office SOWMYA Diaz 1.2.840.114 [id number] 09:34:23 09:49:23 Visit Tere AMBULATOR 350.1.13.21 Y 0.2.7.2.686 [id number] 350 2019-08-29 2019-08-29 Office SOWMYA Diaz 1.2.840.[id number] [place] [address] 13:12:05 14:57:22 Visit Tere AMBULATOR 350.1.13.21 College Y 0.2.7.2.686 of [id number] Medi [place] 350 e 2019-08-29 2019-08-29 Office SOWMYA Diaz 1.2.840.114 [id number] [facility] 13:12:05 14:57:22 Visit Tere AMBULATOR 350.1.13.21 Y 0.2.7.2.686 [id number] 350 2019-08-24 2019-08-24 Office SOWMYA Ramirez [id number] [facility] 07:55:29 09:09:00 Visit Nicolaas AMBULATOR 350.1.13.21 College [place] Y 0.2.7.2.686 of [id number] Medi [place] 800 e 2019-08-24 2019-08-24 Office ROSALIND RamirezAlvino 1.2.558.484 [id number] 07:55:29 09:09:00 Visit Nicolaas AMBULATOR 350.1.13.21 [place] Y 0.2.7.2.686 [id number] 800 2019-08-16 2019-08-16 Office SOWMYA Morgan 1.2.840.114 [id number] [facility] 12:46:06 13:46:06 Visit Siripoom AMBULATOR 350.1.13.21 College [place] Y 0.2.7.2.686 of [id number] [facility] 310 e 2019-08-16 2019-08-16 Office SOWMYA Morgan 1.2.840.114 [id number] 12:46:06 13:46:06 Visit Siripoom AMBULATOR 350.1.13.21 [place] Y 0.2.7.2.686 [id number] 310 2019-08-02 2019-08-02 Office Morgan SOWMYA 1.2.840.114 [id number] [facility] 14:28:48 15:28:48 Visit Siripoom AMBULATOR 350.1.13.21 College [place] Y 0.2.7.2.686 of [id number] [facility] 310 e 2019-08-02 2019-08-02 Office SOWMYA Morgan 1.2.840.114 [id number] 14:28:48 15:28:48 Visit Siripoom AMBULATOR 350.1.13.21 [place] Y 0.2.7.2.686 [id number] 310 2019-07-24 2019-07-24 Office Lexjanette SOWMYA 1.2.840.[id number] [place] [address] 09:25:08 10:27:11 Visit Faith AMBULATOR 350.1.13.21 College Y 0.2.7.2.686 of [id number] [facility] 300 e 2019-07-24 2019-07-24 Office Lexjanette SOWMYA 1.2.840.114 [id number] 09:25:08 10:27:11 Visit Faith AMBULATOR 350.1.13.21 Y 0.2.7.2.686 [id number] 300 2019-07-18 2019-07-18 Office SOWMYA Waller 1.2.840.114 [id number] [facility] 13:16:07 15:06:34 Visit Sunjay AMBULATOR 350.1.13.21 College Y 0.2.7.2.686 of [id number] [facility] 350 e 2019-07-18 2019-07-18 Office SOWMYA Waller 1.2.840.114 [id number] 13:16:07 15:06:34 Visit Sunjay AMBULATOR 350.1.13.21 Y 0.2.7.2.686 [id number] 350 2019-05-19 2019-05-19 Office SOWMYA Stovall 1.2.840.114 [id number] [facility] 11:12:00 11:57:59 Visit Fidaa AMBULATOR 350.1.13.21 College Y 0.2.7.2.686 of [id number] [facility] 340 e 2019-05-19 2019-05-19 Office SOWMYA Stovall 1.2.840.114 [id number] 11:12:00 11:57:59 Visit Fidaa AMBULATOR 350.1.13.21 Y 0.2.7.2.686 [id number] 340 2015-05-07 2015-05-07 Office Marco Smith BCAlvino 1.2.840.114 [id number] [facility] 08:50:11 16:11:50 Visit AMBULATOR 350.1.13.21 College Y 0.2.7.2.686 of [id number] [facility] [place] 353 e 2015-05-07 2015-05-07 Office Marco Smith BCM 1.2.840.114 [id number] 08:50:11 16:11:50 Visit AMBULATOR 350.1.13.21 Y 0.2.7.2.686 [id number] 353 Results Test Description Test Time Test Comments Results Result Comments Source AFB CULTURE + SMEAR (SPUTUM ONLY) 2021-02-18 13:50:00 Test Item Value Reference Range Interpretation Comme nts CULTURE (BEAKER) (test code = 1095) No acid-fast bacilli isolated i n 42 days AFB SMEAR (BEAKER) (test code = 994) No acid fast bacilli seen FUNGUS CULTURE + [id number] 00:23:00 Test Item Value Reference Range Interpretation Comments CULTURE (BEAKER) A <1+ Clau (test code = 1095) vernonien sis FUNGUS SMEAR No fungi seen (BEAKER) (test code = 1406) CF RESPIRATORY [id number] 12:32:00 Test Item Value Reference Range Interpretation [...] normal/abnormal . 4+ Normal respiratory derick presentSPIN/CONCENTRATION [id number] 08:27:00 Test Item Value Reference Range Interpretation Comments CONCENTRATION CHARGED (BEAKER) (test Done code = 2657) SPIROMETRY (IN CLINIC)2021-01-06 16:00:00Marco Smith MD 01/06/2021 1:03 PMPlease see graphic report for final interpretation. Date of testDate of test: 01/06/2126HMI1GPH6: 1.15 LFEV1 % EXP: 45 %FVCFVC: 2.31 LFVC % EXPECT: 77 %FEV1 / FVCFEV1 / FVC: 0.53 %FEV1 / FVC % EXP: 61 %FEFFEF 25-75%: 0.44 l/minFEF % EXPEC: 14 %[facility] [id number] 09:14:00 FINAL REPORT MR, BRAIN, WITHOUT IV [...] C3-C4.2.No other intracranial abnormalities. Signed: German Morfin MDReport Verified Date/Time: 04/04/2020 09:14:42 Reading Location: [facility] Room [address] [place] [address] SPIROMETRY (IN CLINIC)2019-12-21 16:00:00 Tere Diaz NP 12/21/2019 11:14 AMPlease see graphic report for final interpretation. Date of testDate of test: 12/21/1962AKI3FPI8: 1.19 LFEV1 % EXP: 47 %FVCFVC: 2.01 LFVC % EXPECT: 69 %FEV1 / FVCFEV1 / FVC: 0.6 %FEV1 / FVC % EXP: 70 %FEFFEF 25-75%: 0.55 l/minFEF % EXPEC: 18 %[facility]NON-SPUTUM)2019-12-18 15:21:00 Test Item Value Reference Range Interpretation Comments CULTURE (BEAKER) (test No acid-fast bacilli code = 1095) isolated in 42 days AFB SMEAR (BEAKER) No acid fast bacilli (test code = 994) seen FUNGUS CULTURE + [id number] 17:07:00 Test Item Value Reference Range Interpretation Comments CULTURE (BEAKER) A 2+ Clau (test code = 1095) lisa frank FUNGUS SMEAR No fungi seen (BEAKER) (test code = 1406) CF RESPIRATORY [id number] 07:18:00 Test Item Value Reference Range Interpretation [...] or >4 4+ Normal respiratory derick presentSPIN/CONCENTRATION [id number] 01:32:00 Test Item Value Reference Range Interpretation Comments CONCENTRATION CHARGED (BEAKER) (test Done code = 2657) AFB CULTURE + [id number] 11:55:00 Test Item Value Reference Range Interpretation Comments CULTURE (BEAKER) (test No acid-fast bacilli code = 1095) isolated in 42 days AFB SMEAR (BEAKER) No acid fast bacilli (test code = 994) seen HEMOGLOBIN [id number] 09:08:00 Test Item Value Reference Range Interpretation Comments HEMOGLOBIN A1C (BEAKER) (test code = 11.1 % 4.3-6.1 H 368) FUNGUS CULTURE + [id number] 17:41:00 Test Item Value Reference Range Interpretation Comments CULTURE (BEAKER) A 1+ Clau (test code = 1095) lisa frank FUNGUS SMEAR No fungi seen (BEAKER) (test code = 1406) POCT-GLUCOSE [id number] 12:02:00 Test Item Value Reference Range Interpretation Comments POC-GLUCOSE METER 89 mg/dL 70-110 : TESTED A T [facility] 6720 (BEAKER) (test code = PAUL [facility], 1538) 22827: Assistant Plant Controller/Techni osvaldo ID = [id number] for Maryjanea him, Serkialem POCT-GLUCOSE [id number] 08:32:00 Test Item Value Reference Range Interpretation Comments POC-GLUCOSE METER 101 mg/dL 70-110 : TESTED A T [facility] 6720 (BEAKER) (test code [facility], = 1538) [id number]: Assistant Plant Controller/Techni osvaldo ID = [id number] for Maryjanea dorothea, Serkialem [id number] 06:13:00 Test Item Value Reference Range Interpretation Comments PHOSPHORUS (BEAKER) (test code = 4.0 mg/dL 2.3-4.7 604) [id number] 06:13:00 Test Item Value Reference Range Interpretation Comments MAGNESIUM (BEAKER) (test code = 1.8 mg/dL 1.6-2.6 627) BASIC METABOLIC [id number] 06:13:00 Test Item Value Reference Range Interpretation [...] NOT APPLICABLE FOR DIALYSIS PATIEN TS. CALCIUM, [id number] 05:13:00 Test Item Value Reference Range Interpretation Comments CALCIUM IONIZED (BEAKER) (test 1.03 mmol/L 1.12-1.27 L code = 698) PH, BLOOD (BEAKER) (test code = 7.39 1810) CBC W/PLT COUNT & AUTO [id number] 04:34:00 Test Item Value Reference Range Interpretation [...] PERCENT (BEAKER) (test code = 2801) POCT-GLUCOSE [id number] 22:25:00 Test Item Value Reference Range Interpretation Comments POC-GLUCOSE METER 297 mg/dL 70-110 H : TESTED A T [facility] 6720 (BEAKER) (test code = [facility], 1538) 48150: Assistant Plant Controller/Techni osvaldo ID = [id number] for SP GRIFFIN FOY POCT-GLUCOSE [id number] 17:01:00 Test Item Value Reference Range Interpretation Comments POC-GLUCOSE METER 173 mg/dL 70-110 H : TESTED A T [facility] 6720 (BEAKER) (test code = [facility], [facility]8) 43983: Assistant Plant Controller/Techni osvaldo ID = [id number] for CA STRO, HALIMA POCT-GLUCOSE [id number] 12:08:00 Test Item Value Reference Range Interpretation Comments POC-GLUCOSE METER 140 mg/dL 70-110 H : TESTED A T [facility] 6720 (BEAKER) (test code = [facility], 1538) 90020: Assistant Plant Controller/Techni osvaldo ID = [id number] for CA STRO, [place]IMA POCT-GLUCOSE [id number] 08:20:00 Test Item Value Reference Range Interpretation Comments POC-GLUCOSE METER 89 mg/dL 70-110 : TESTED A T [facility] 6720 (BEAKER) (test code = [facility], 1538) 56370: Assistant Plant Controller/Techni osvaldo ID = [id number] for CAST RO, HALIMA [id number] 07:03:00 Test Item Value Reference Range Interpretation Comments PHOSPHORUS (BEAKER) (test code = 4.5 mg/dL 2.3-4.7 604) [id number] 07:03:00 Test Item Value Reference Range Interpretation Comments MAGNESIUM (BEAKER) (test code = 1.7 mg/dL 1.6-2.6 627) COMPREHENSIVE METABOLIC [id number] 07:03:00 Test Item Value Reference Range Interpretation [...] PATIEN TS. CBC W/PLT COUNT & AUTO [id number] 06:17:00 Test Item Value Reference Range Interpretation [...] PERCENT (BEAKER) (test code = 2801) CALCIUM, [id number] 05:53:00 Test Item Value Reference Range Interpretation Comments CALCIUM IONIZED (BEAKER) (test 1.10 mmol/L 1.12-1.27 L code = 698) PH, BLOOD (BEAKER) (test code = 7.40 1810) POCT-GLUCOSE [id number] 21:39:00 Test Item Value Reference Range Interpretation Comments POC-GLUCOSE METER 260 mg/dL 70-110 H : TESTED A T [facility] 6720 (BEAKER) (test code = [facility], 1538) 21027: Assistant Plant Controller/Techni osvaldo ID = [id number] for SP DANII, GRIFFIN UPPER RESPIRATORY [id number] 20:25:00 Test Item Value Reference Range Interpretation Comments CULTURE (BEAKER) 2+ Normal respiratory (test code = 1095) derick present POCT-GLUCOSE [id number] 17:23:00 Test Item Value Reference Range Interpretation Comments POC-GLUCOSE METER 118 mg/dL 70-110 H : TESTED A T [facility] 6720 (BEAKER) (test code = [facility], 1538) 51096: Assistant Plant Controller/Techni osvaldo ID = [id number] for CA STRO, HALIMA POCT-GLUCOSE [id number] 12:04:00 Test Item Value Reference Range Interpretation Comments POC-GLUCOSE METER 157 mg/dL 70-110 H : TESTED A T [facility] 6720 (BEAKER) (test code = [facility], 1538) 96387: Assistant Plant Controller/Techni osvaldo ID = [id number] for CA STRO, HALIMA HEPATIC FUNCTION [id number] 10:56:00 Test Item Value Reference Range Interpretation [...] = 150 U/L 6-55 H 347) POCT-GLUCOSE [id number] 07:54:00 Test Item Value Reference Range Interpretation Comments POC-GLUCOSE METER 113 mg/dL 70-110 H : TESTED A T [facility] 6720 (BEAKER) (test code = [facility] [place], 1538) 26979: Assistant Plant Controller/Techni osvaldo ID = [id number] for CA STROHALIMA [id number] 06:57:00 Test Item Value Reference Range Interpretation Comments PHOSPHORUS (BEAKER) (test code = 3.9 mg/dL 2.3-4.7 604) [id number] 06:57:00 Test Item Value Reference Range Interpretation Comments MAGNESIUM (BEAKER) (test code = 1.7 mg/dL 1.6-2.6 627) BASIC METABOLIC [id number] 06:57:00 Test Item Value Reference Range Interpretation [...] PATIEN TS. CBC W/PLT COUNT & AUTO [id number] 06:56:00 Test Item Value Reference Range Interpretation [...] PERCENT (BEAKER) (test code = 2801) CALCIUM, [id number] 05:52:00 Test Item Value Reference Range Interpretation Comments CALCIUM IONIZED (BEAKER) (test 1.07 mmol/L 1.12-1.27 L code = 698) PH, BLOOD (BEAKER) (test code = 7.45 1810) POCT-GLUCOSE [id number] 21:54:00 Test Item Value Reference Range Interpretation Comments POC-GLUCOSE METER 223 mg/dL 70-110 H : TESTED A T [facility] 6720 (BEAKER) (test code = [facility], 1538) 46012: Assistant Plant Controller/Techni osvaldo ID = [id number] for LYNSEY BROWN POCT-GLUCOSE [id number] 17:26:00 Test Item Value Reference Range Interpretation Comments POC-GLUCOSE METER 179 mg/dL 70-110 H : TESTED A T [facility] 6720 (BEAKER) (test code = [facility] [facility], 1538) [address]: Assistant Plant Controller/Techni osvaldo ID = [id number] for Fabio Bello CF RESPIRATORY [id number] 17:18:00 Test Item Value Reference Range Interpretation [...] = 25) Resistant <0 or >4 POCT-GLUCOSE [id number] 12:52:00 Test Item Value Reference Range Interpretation Comments POC-GLUCOSE METER 147 mg/dL 70-110 H : TESTED A T [facility] 6720 (BEAKER) (test code = PAUL Tanner [facility], 1538) 13925: Assistant Plant Controller/Techni osvaldo ID = [id number] for Fabio Bello POCT-GLUCOSE [id number] 10:05:00 Test Item Value Reference Range Interpretation Comments POC-GLUCOSE METER 61 mg/dL 70-110 L : Pt. refu sed rpt tst: (BEAKER) (test code = TESTED AT [facility] 6720 1538) [facility], [address]: Assistant Plant Controller/Techni osvaldo ID = [id number] for Fabio Wright [id number] 07:55:00 Test Item Value Reference Range Interpretation Comments MAGNESIUM (BEAKER) 1.6 mg/dL 1.6-2.6 Specimen slightly (test code = 627) hemolyzed [id number] 07:55:00 Test Item Value Reference Range Interpretation Comments PHOSPHORUS (BEAKER) 3.9 mg/dL 2.3-4.7 Specimen slightly (test code = 604) hemolyzed BASIC METABOLIC [id number] 07:55:00 Test Item Value Reference Range Interpretation [...] PATIEN TS. CBC W/PLT COUNT & AUTO [id number] 06:43:00 Test Item Value Reference Range Interpretation [...] PERCENT (BEAKER) (test code = 2801) CALCIUM, [id number] 06:28:00 Test Item Value Reference Range Interpretation Comments CALCIUM IONIZED (BEAKER) (test 1.05 mmol/L 1.12-1.27 L code = 698) PH, BLOOD (BEAKER) (test code = 7.31 1810) POCT-GLUCOSE [id number] 21:46:00 Test Item Value Reference Range Interpretation Comments POC-GLUCOSE METER 356 mg/dL 70-110 H : TESTED A T [facility] 6720 (BEAKER) (test code = [facility], 1538) 66632: Assistant Plant Controller/Techni osvaldo ID = [id number] for BRITTNEE RODRIGUEZ POCT-GLUCOSE [id number] 17:55:00 Test Item Value Reference Range Interpretation Comments POC-GLUCOSE METER 300 mg/dL 70-110 H : TESTED A T [facility] 6720 (BEAKER) (test code = [facility], 1538) 95169: Assistant Plant Controller/Techni osvaldo ID = [id number] for JEANETTE CHAVES POCT-GLUCOSE [id number] 12:19:00 Test Item Value Reference Range Interpretation Comments POC-GLUCOSE METER 176 mg/dL 70-110 H : TESTED A T [facility] 6720 (BEAKER) (test code = [facility], 1538) 41841: Assistant Plant Controller/Techni osvaldo ID = [id number] for ZE FELTON, SALOMÓN POCT-GLUCOSE [id number] 07:45:00 Test Item Value Reference Range Interpretation Comments POC-GLUCOSE METER 198 mg/dL 70-110 H : TESTED A T [facility] 6720 (BEAKER) (test code = [facility], 1538) 39342: Assistant Plant Controller/Techni osvaldo ID = [id number] for ZE FELTON, SALOMÓN CALCIUM, [id number] 07:36:00 Test Item Value Reference Range Interpretation Comments CALCIUM IONIZED (BEAKER) (test 1.16 mmol/L 1.12-1.27 code = 698) PH, BLOOD (BEAKER) (test code = 7.31 1810) CBC W/PLT COUNT & AUTO [id number] 04:03:00 Test Item Value Reference Range Interpretation [...] 0-1 PERCENT (BEAKER) (test code = 2801) [id number] 03:49:00 Test Item Value Reference Range Interpretation Comments PHOSPHORUS (BEAKER) (test code = 3.8 mg/dL 2.3-4.7 604) [id number] 03:49:00 Test Item Value Reference Range Interpretation Comments MAGNESIUM (BEAKER) (test code = 2.0 mg/dL 1.6-2.6 627) BASIC METABOLIC [id number] 03:49:00 Test Item Value Reference Range Interpretation [...] 358) GLUCOSE RANDOM 153 mg/dL 70-105 H (BEAKER) (test code = 652) CALCIUM (BEAKER) 8.4 mg/dL 8.4-10.2 (test code = 697) EGFR (BEAKER) (test 103 mL/min/1.73 ESTIM ATED GFR IS code = 1092) sq m NOT ACCURATE CREATININE CLEARANCE IN PREDICTING GLOMERULAR FILTRATION RATE . ESTIMATED GFR I S NOT APPLICABLE FOR DIALYSIS PATIEN TS. POCT-GLUCOSE [id number] 22:24:00 Test Item Value Reference Range Interpretation Comments POC-GLUCOSE METER 401 mg/dL 70-110 HH : Notified RN/MD: (SIMI) (test code = TESTED AT [facility] 6720 7768) [facility], [address]: Assistant Plant Controller/Techni osvaldo ID = [id number] for SP GRIFFIN FOY BLOOD [id number] 19:01:00 Test Item Value Reference Range Interpretation Comments CULTURE (BEAKER) (test No growth in 5 days code = 1095) BLOOD [id number] 19:01:00 Test Item Value Reference Range Interpretation Comments CULTURE (BEAKER) (test No growth in 5 days code = 1095) POCT-GLUCOSE [id number] 17:12:00 Test Item Value Reference Range Interpretation Comments POC-GLUCOSE METER 381 mg/dL 70-110 H : TESTED A T [facility] 6720 (BEAKER) (test code = [facility], 1538) 66826: Assistant Plant Controller/Techni osvaldo ID = [id number] for CA STRO, HALIMA POCT-GLUCOSE [id number] 12:19:00 Test Item Value Reference Range Interpretation Comments POC-GLUCOSE METER 129 mg/dL 70-110 H : TESTED A T [facility] 6720 (BEAKER) (test code = [facility], 1538) 42122: Assistant Plant Controller/Techni osvaldo ID = [id number] for CA STRO, HALIMA POCT-GLUCOSE [id number] 08:14:00 Test Item Value Reference Range Interpretation Comments POC-GLUCOSE METER 72 mg/dL 70-110 : TESTED A T [facility] 6720 (BEAKER) (test code = [facility], 1538) 22502: Assistant Plant Controller/Techni osvaldo ID = [id number] for CAST RO, HALIMA CALCIUM, [id number] 07:16:00 Test Item Value Reference Range Interpretation Comments CALCIUM IONIZED (BEAKER) (test 1.18 mmol/L 1.12-1.27 code = 698) PH, BLOOD (BEAKER) (test code = 7.35 1810) [id number] 05:01:00 Test Item Value Reference Range Interpretation Comments PHOSPHORUS (BEAKER) (test code = 3.0 mg/dL 2.3-4.7 604) [id number] 05:01:00 Test Item Value Reference Range Interpretation Comments MAGNESIUM (BEAKER) (test code = 1.4 mg/dL 1.6-2.6 L 627) BASIC METABOLIC [id number] 05:01:00 Test Item Value Reference Range Interpretation [...] PATIEN TS. CBC W/PLT COUNT & AUTO [id number] 04:54:00 Test Item Value Reference Range Interpretation [...] PERCENT (BEAKER) (test code = 2801) POCT-GLUCOSE [id number] 22:39:00 Test Item Value Reference Range Interpretation Comments POC-GLUCOSE METER 434 mg/dL 70-110 HH : Notified RN/MD: (SIMI) (test code = TESTED AT [place] [address]) [facility], [address]: Assistant Plant Controller/Techni osvaldo ID = [id number] for SP GRIFFIN FOY POCT-GLUCOSE [id number] 16:58:00 Test Item Value Reference Range Interpretation Comments POC-GLUCOSE METER 486 mg/dL 70-110 HH : Notified RN/MD: (SIMI) (test code = TESTED AT [place] [address] 153) [facility], [address]: Assistant Plant Controller/Techni osvaldo ID = [id number] for CA STRO, HALIMA POCT-GLUCOSE [id number] 11:36:00 Test Item Value Reference Range Interpretation Comments POC-GLUCOSE METER 275 mg/dL 70-110 H : TESTED A T [place] [address] (BANNER) (test code = [facility], 1538) 46060: Assistant Plant Controller/Techni osvaldo ID = [id number] for CA STRO, HALIMA POCT-GLUCOSE [id number] 07:35:00 Test Item Value Reference Range Interpretation Comments POC-GLUCOSE METER 276 mg/dL 70-110 H : TESTED A T [facility] 6720 (BEAKER) (test code = [facility], 1538) 40226: Assistant Plant Controller/Techni osvalod ID = [id number] for HALIMA JONES BASIC METABOLIC [id number] 06:03:00 Test Item Value Reference Range Interpretation [...] NOT APPLICABLE FOR DIALYSIS PATIEN TS. POCT-GLUCOSE [id number] 22:00:00 Test Item Value Reference Range Interpretation Comments POC-GLUCOSE METER 251 mg/dL 70-110 H : TESTED A T [facility] 6720 (BEAKER) (test code = [facility] [facility], 1538) 547[address]: Assistant Plant Controller/Techni osvaldo ID = [id number] for SP ARKS, GRIFFIN RAD, RIBS, UNILATERAL, MIN 2 VIEWS, [id number] 19:15:00Reason for exam:- >Chest pain with coughFINAL REPORT Right RIBS, two views History: Cough and chest pain Comparison: None Findings:No fracture, dislocation, or subluxation. No additional significant bone or joint space abnormality. The right lung is clear. A right-sided Port-A-Cath terminates in the superior vena cava. Impression:No radiographically appreciable right rib abnormality. Signed: Dane Campo MDReport Verified Date/Time: 09/01/2019 19:15:04 Reading Location: [facility] Mammo Reading Room RAD, RIBS, UNILATERAL, MIN 2 VIEWS, [id number] 18:32:00Reason for exam:->Chest pain with coughFINAL REPORT [...] pleuraleffusion. Signed: Dane Campo MDReport Verified Date/Time: 09/01/2019 18:32:18 Reading Location: [facility] Mammo Reading Room POCT-GLUCOSE [id number] 18:20:00 Test Item Value Reference Range Interpretation Comments POC-GLUCOSE METER 182 mg/dL 70-110 H : TESTED A T [facility] 6720 (BEAKER) (test code = [facility], 1538) 678[address]: Assistant Plant Controller/Techni osvaldo ID = [id number] for CA STRO, HALIMA POCT-GLUCOSE [id number] 12:45:00 Test Item Value Reference Range Interpretation Comments POC-GLUCOSE METER 210 mg/dL 70-110 H : TESTED A T [facility] 6720 (BEAKER) (test code = [facility] [employer] [facility], 1538) 52996: Assistant Plant Controller/Techni osvaldo ID = [id number] for CA STRO, HALIMA POCT-GLUCOSE [id number] 08:24:00 Test Item Value Reference Range Interpretation Comments POC-GLUCOSE METER 109 mg/dL 70-110 : TESTED A T [facility] 6720 (BEAKER) (test code = [facility], 1538) 50172: Assistant Plant Controller/Techni osvaldo ID = [id number] for CA STRO, HALIMA BASIC METABOLIC [id number] 06:25:00 Test Item Value Reference Range Interpretation [...] NOT APPLICABLE FOR DIALYSIS PATIEN TS. SPIN/CONCENTRATION [id number] 01:54:00 Test Item Value Reference Range Interpretation Comments CONCENTRATION CHARGED (BEAKER) (test Done code = 2657) POCT-GLUCOSE [id number] 21:20:00 Test Item Value Reference Range Interpretation Comments POC-GLUCOSE METER 303 mg/dL 70-110 H : Notified RN/MD: (BANNER) (test code = TESTED AT [facility] 6720 1538) [facility], [address]: Assistant Plant Controller/Techni osvaldo ID = [id number] for SHERI CRANDALL POCT-GLUCOSE [id number] 17:55:00 Test Item Value Reference Range Interpretation Comments POC-GLUCOSE METER 353 mg/dL 70-110 H : TESTED A T [facility] 6720 (AKER) (test code = [facility], 1538) 94827: Assistant Plant Controller/Techni osvaldo ID = [id number] for DANNY TREJO POCT-GLUCOSE [id number] 11:26:00 Test Item Value Reference Range Interpretation Comments POC-GLUCOSE METER 298 mg/dL 70-110 H : TESTED A T [facility] 6720 (BANNER) (test code = [facility], 1538) 61404: Assistant Plant Controller/Techni osvaldo ID = [id number] for DIMITRY GONZALEZ POCT-GLUCOSE [id number] 08:53:00 Test Item Value Reference Range Interpretation Comments POC-GLUCOSE METER 228 mg/dL 70-110 H : TESTED A T [facility] 6720 (BEAKER) (test code = [facility], 1538) 95661: Assistant Plant Controller/Techni osvaldo ID = [id number] for DIMIRTY GONZALEZ [id number] 06:48:00 Test Item Value Reference Range Interpretation Comments BLOOD UREA NITROGEN (BEAKER) (test 21 mg/dL 7 code = 354) [id number] 06:48:00 Test Item Value Reference Range Interpretation Comments CREATININE (BEAKER) 0.99 mg/dL 0.57-1.25 (test code = 358) EGFR (BANNER) (test 82 mL/min/1.73 ESTIMA MAGDALENO GFR IS code = 1092) sq m NOT ACCURATE CREATININE CLEARANCE IN PREDICTING GLOMERULAR FILTRATION RATE . ESTIMATED GFR I S NOT APPLICABLE FOR DIALYSIS PATIEN TS. POCT-GLUCOSE [id number] 23:26:00 Test Item Value Reference Range Interpretation Comments POC-GLUCOSE METER 483 mg/dL 70-110 HH : TESTED A T [facility] 6720 (REES46) (test code = [facility], 1538) 09365: Assistant Plant Controller/Techni osvaldo ID = [id number] for BRITTNEE RODRIGUEZ POCT-GLUCOSE [id number] 16:33:00 Test Item Value Reference Range Interpretation Comments POC-GLUCOSE METER 159 mg/dL 70-110 H : TESTED A T [facility] 6720 (BEAKER) (test code = [facility], 1538) 91006: Assistant Plant Controller/Techni osvaldo ID = [id number] for DIMITRY GONZALEZ POCT-GLUCOSE [id number] 12:32:00 Test Item Value Reference Range Interpretation Comments POC-GLUCOSE METER 230 mg/dL 70-110 H : TESTED A T [facility] 6720 (BEAKER) (test code = [facility], 1538) 37972: Assistant Plant Controller/Techni osvaldo ID = [id number] for DIMITRY GONZALEZ RESPIRATORY PANEL [id number] 08:49:00 Test Item Value Reference Range Interpretation [...] [facility] Molecular Diagnostics Laboratory using the [employer] Respiratory Panel. It is FDA cleared and has been verified and approved by the [facility] Molecular Diagnostics Laboratory for clinical use on nasopharyngeal swab specimens.The performance of the FilmArrayRP has not been established in individuals who received influenza vaccine. Recent administration ofa nasal influenza vaccine may cause false positive results for Influenza A and/orInfluenza B.POCT-GLUCOSE [id number] 08:25:00 Test Item Value Reference Range Interpretation Comments POC-GLUCOSE METER 173 mg/dL 70-110 H : [facility] (test code = [facility], 1538) 854[address]: Assistant Plant Controller/Techni osvaldo ID = [id number] for NICHOLS DIMITRY BLAIR HEMOGLOBIN [id number] 07:59:00 Test Item Value Reference Range Interpretation Comments HEMOGLOBIN A1C (BEAKER) (test code = 11.3 % 4.3-6.1 H 368) [id number] 04:54:00 Test Item Value Reference Range Interpretation Comments BLOOD UREA NITROGEN (BEAKER) (test 11 mg/dL 7-21 code = 354) [id number] 04:54:00 Test Item Value Reference Range Interpretation Comments CREATININE (BEAKER) 0.80 mg/dL 0.57-1.25 (test code = 358) EGFR (BEAKER) (test 104 mL/min/1.73 ESTIM ATED GFR IS code = 1092) sq m NOT ACCURATE CREATININE CLEARANCE IN PREDICTING GLOMERULAR FILTRATION RATE . ESTIMATED GFR I S NOT APPLICABLE FOR DIALYSIS PATIEN TS. POCT-GLUCOSE [id number] 22:07:00 Test Item Value Reference Range Interpretation Comments POC-GLUCOSE METER 191 mg/dL 70-110 H : TESTED A T [facility] 6720 (BEAKER) (test code = [facility], 1538) 46782: Assistant Plant Controller/Techni osvaldo ID = [id number] for SP DANII, GRIFFIN RESPIRATORY PANEL [id number] 20:00:00 Test Item Value Reference Range Interpretation [...] [facility]ICAL [facility]ENTER Molecular Diagnostics Laboratory using the [employer] Respiratory Panel. It is FDA cleared and has been verified and approved by the [facility] Molecular Diagnostics Laboratory for clinical use on nasopharyngeal swab specimens.The performance of the FilmArrayRP has not been established in individuals who received influenza vaccine. Recent administration ofa nasal influenza vaccine may cause false positive results for Influenza A and/orInfluenza B.POCT-GLUCOSE [id number] 19:56:00 Test Item Value Reference Range Interpretation Comments POC-GLUCOSE METER 60 mg/dL 70-110 L : Notified RN/MD: TESTED (SIMI) (test code = AT [facility] 6720 [place] 1538) [facility], 7[address]: Assistant Plant Controller/Techni osvaldo ID = [id number] for ALFIE BROWN RAD, CHEST, 2 [id number] 19:26:00Reason for exam:->SHORTNESS OF BREATHReason for exam:->COUGHFINAL [...] IMPRESSION: No interval change. Signed: Alberto Kohler MDReport Verified Date/Time: 08/29/2019 19:26:24 Reading Location: [facility] C013W Consult Reading Room SPIROMETRY (IN CLINIC)2019-08-29 19:00:00Tere Diaz NP 08/29/2019 3:59 PMPlease see graphic report for final interpretation. Date o f testDate of test: 08/29/1995VLT3HFI5: 0.75 LFEV1 % EXP: 30 %FVCFVC: 1.33 LFVC % EXPECT: 46 %FEV1 / FVCFEV1 / FVC: 0.6 %FEV1 / FVC % EXP: 70 %FEFFEF 25-75%: 0.34 l/minFEF % EXPEC: 11 %[facility] [id number] 18:31:00 Test Item Value Reference Range Interpretation Comments MAGNESIUM (BEAKER) (test code = 1.8 mg/dL 1.6-2.6 627) [id number] 18:31:00 Test Item Value Reference Range Interpretation Comments PHOSPHORUS (SIMI) (test code = 3.0 mg/dL 2.3-4.7 604) GAMMA GLUTAMYL TRANSFERASE (GGT)2019-08-29 18:31:00 Test Item Value Reference Range Interpretation Comments GAMMA GLUTAMYL TRANSFERASE (BEAKER) 54 U/L 9-64 (test code = 364) RAPID INFLUENZA A&B [id number] 17:02:00 Test Item Value Reference Range Interpretation Comments RAPID INFLUENZA A AG (BEAKER) Negative Negative, Inconclusive (test code = 1622) RAPID INFLUENZA B AG (BEAKER) Negative Negative, Inconclusive (test code = 1623) HEPATIC FUNCTION [id number] 16:49:00 Test Item Value Reference Range Interpretation [...] = 10 U/L 6-55 347) BASIC METABOLIC [id number] 16:49:00 Test Item Value Reference Range Interpretation [...] PATIEN TS. CBC W/PLT COUNT & AUTO [id number] 16:27:00 Test Item Value Reference Range Interpretation [...] (test code = 2801) POCT REAGENT STP/BLD [id number] 08:00:00 Test Item Value Reference Range Interpretation Comments GLUCOSE BLOOD (test code = 2341-6) 70-105 A Lab Interpretation (test code = Abnormal 23684-9) [facility], [id number] 20:19:00 Test Item Value Reference Range Interpretation Comments KETONES, BLOOD (test code = 7489970) [facility]/BLD [id number] 20:10:00 Test Item Value Reference Range Interpretation Comments GLUCOSE BLOOD (test code = 2341-6) 70-105 A Lab Interpretation (test code = Abnormal 76357-1) [facility] DENSITY [id number] 09:57:00Reason for Exam:->OSTEOPOROSIS SCREENINGFINAL REPORT Exam: Bone [...] for bone mineral density as provided by admitting clerk is 0.023 g/cm2 for lumbar spine and [...] MDReport Verified Date/Time: 06/14/2019 09:57:23 Reading Location: [facility] Reading Room [address] [place] [address] CT, SPINE, LUMBAR, WO [id number] 16:36:00Reason for exam:- >MOTOR VEHICLE CRASHReason for [...] lumbar fracture or malalignment. Signed: Humera Coronado MDReport Verified Date/Time: 06/12/2019 16:36:11 CT, SPINE, CERVICAL, [...] 06/12/2019 16:33:42 RAD, FEMUR, MIN. 2 VIEWS, [id number] 16:22:00Reason for exam:->MOTOR VEHICLE CRASHReason for exam:->BACK [...] Olivarez Verified Date/Time: 06/12/2019 16:22:18 Reading Location: [facility] Reading Room RAD, FEMUR, MIN. 2 VIEWS, [id number] 16:22:00Reason for exam:->MOTOR VEHICLE CRASHReason for exam:->BACK [...] Olivarez Verified Date/Time: 06/12/2019 16:22:18 Reading Location: [facility] Mammo Reading Room RAD, SPINE, LUMBAR, 2 OR [...] Olivarez Verified Date/Time: 06/12/2019 16:22:18 Reading Location: [facility] Mammo Reading Room RAD, PELVIS, 1 OR 2 [id number] 16:22:00Reason for exam:->MOTOR VEHICLE CRASHReason for exam:->BACK [...] Olivarez Verified Date/Time: 06/12/2019 16:22:18 Reading Location: [facility] Mammo Reading Room PREGNANCY SCREEN, [id number] 15:08:00 Test Item Value Reference Range Interpretation Comments TEST URINE (BEAKER) (test Negative code = 583) CF RESPIRATORY [id number] 13:23:00 Test Item Value Reference Range Interpretation [...] or >4 4+ Normal respiratory derick presentPOCT-GLUCOSE [id number] 11:50:00 Test Item Value Reference Range Interpretation Comments POC-GLUCOSE METER 110 mg/dL 70-110 TESTED AT [place] [address] ([facility] (test code = [place]UL [place] [place] 1538) [address] POCT-GLUCOSE [id number] 11:41:00 Test Item Value Reference Range Interpretation Comments POC-GLUCOSE METER 54 mg/dL 70-110 L Notified R N or MD (SIMI) (test code = Patien t refused repeat 1538) test/TESTED AT [facility] [address] [place] [address] POCT-GLUCOSE [id number] 07:55:00 Test Item Value Reference Range Interpretation Comments POC-GLUCOSE METER 328 mg/dL 70-110 H Notified R N or MD (SIMI) (test code = Patidhaval t refused repeat 153) test/TESTED AT [address] [address] BASIC METABOLIC [id number] 06:10:00 Test Item Value Reference Range Interpretation [...] S NOT APPLICABLE FOR DIALYSIS ADELIA TS. CBC W/PLT COUNT & AUTO [id number] 05:55:00 Test Item Value Reference Range Interpretation [...] PERCENT (BEAKER) (test code = 2801) POCT-GLUCOSE [id number] 21:42:00 Test Item Value Reference Range Interpretation Comments POC-GLUCOSE METER 225 mg/dL 70-110 H TESTED AT [facility] 6720 (BANNER) (test code = PAUL Tanner [facility] 1538) [address] POCT-GLUCOSE [id number] 17:33:00 Test Item Value Reference Range Interpretation Comments POC-GLUCOSE METER 359 mg/dL 70-110 H Notified R Collin MD/TESTED (BANNER) (test code = AT [place] [address]69448) [facility] 7703 0 POCT-GLUCOSE [id number] 11:57:00 Test Item Value Reference Range Interpretation Comments POC-GLUCOSE METER 330 mg/dL 70-110 H Notified R Collin STAPLETON/TESTED (BANNER) (test code = AT [place] 069448) [facility] 7703 0 POCT-GLUCOSE [id number] 08:56:00 Test Item Value Reference Range Interpretation Comments POC-GLUCOSE METER 175 mg/dL 70-110 H TESTED AT [place] [address] (BANNER) (test code = PAUL Tanner [place] [address]) [address] BASIC METABOLIC [id number] 07:29:00 Test Item Value Reference Range Interpretation [...] PATIEN TS. CBC W/PLT COUNT & AUTO [id number] 05:17:00 Test Item Value Reference Range Interpretation [...] PERCENT (BEAKER) (test code = 2801) POCT-GLUCOSE [id number] 22:08:00 Test Item Value Reference Range Interpretation Comments POC-GLUCOSE METER 366 mg/dL 70-110 H TESTED AT [facility] 6720 (BEAKER) (test code = PAUL Tanner [facility] 1538) [address] POCT-GLUCOSE [id number] 17:29:00 Test Item Value Reference Range Interpretation Comments POC-GLUCOSE METER 262 mg/dL 70-110 H TESTED AT [facility] 6720 ([facility]) (test code = [facility] 1538) [address] POCT-GLUCOSE [id number] 12:20:00 Test Item Value Reference Range Interpretation Comments POC-GLUCOSE METER 229 mg/dL 70-110 H TESTED AT [facility] 67 ([facility]) (test code = [facility] [employer] [facility] 1538) [address] POCT-GLUCOSE [id number] 08:38:00 Test Item Value Reference Range Interpretation Comments POC-GLUCOSE METER 111 mg/dL 70-110 H TESTED AT [facility] 6720 ([facility]) (test code = [facility] 1538) [address] BASIC METABOLIC [id number] 06:29:00 Test Item Value Reference Range Interpretation [...] PATIEN TS. CBC W/PLT COUNT & AUTO [id number] 05:17:00 Test Item Value Reference Range Interpretation [...] PERCENT (BEAKER) (test code = 2801) POCT-GLUCOSE [id number] 22:09:00 Test Item Value Reference Range Interpretation Comments POC-GLUCOSE METER 209 mg/dL 70-110 H TESTED AT [place] [address] (BANNER) (test code = PAUL Tanner [facility] 1538) [address] POCT-GLUCOSE [id number] 17:02:00 Test Item Value Reference Range Interpretation Comments POC-GLUCOSE METER > mg/dL 70-110 HH OUTSIDE [place] ASURING (BEAKER) (test code RANGENot ified RN or = 1538) Patient refused repeat test/TESTED AT [address] [address] POCT-GLUCOSE [id number] 12:51:00 Test Item Value Reference Range Interpretation Comments POC-GLUCOSE METER 190 mg/dL 70-110 H TESTED AT [place] [address] ([place]) (test code = PAUL Ciro [facility] 1538) [address] POCT-GLUCOSE [id number] 12:07:00 Test Item Value Reference Range Interpretation Comments POC-GLUCOSE METER 34 mg/dL 70-110 LL Notified R Collin STAPLETON/TESTED AT ([place]) (test code = [place] [address] [place] 1538) [facility] 7[address] 0 BASIC METABOLIC [id number] 08:24:00 Test Item Value Reference Range Interpretation [...] NOT APPLICABLE FOR DIALYSIS PATIEN TS. POCT-GLUCOSE [id number] 08:13:00 Test Item Value Reference Range Interpretation Comments POC-GLUCOSE METER 325 mg/dL 70-110 H TESTED AT [facility] 6720 (AKER) (test code = [place] 1538) [address] CBC W/PLT COUNT & AUTO [id number] 06:45:00 Test Item Value Reference Range Interpretation [...] PERCENT (BEAKER) (test code = 2801) POCT-GLUCOSE [id number] 21:38:00 Test Item Value Reference Range Interpretation Comments POC-GLUCOSE METER 226 mg/dL 70-110 H TESTED AT [place] [address] ([facility]ANNER) (test code = [facility] 1538) [address] [id number] 19:16:00 Test Item Value Reference Range Interpretation [...] 20-55 L (test code = 2590) POCT-GLUCOSE [id number] 18:25:00 Test Item Value Reference Range Interpretation Comments POC-GLUCOSE METER > mg/dL 70-110 HH OUTSIDE ME ASURING (BEAKER) (test code = RANGEB luz tested Mother 1538) ID used/TESTED AT [place] [address] [facility] [address] POCT-GLUCOSE [id number] 11:48:00 Test Item Value Reference Range Interpretation Comments POC-GLUCOSE METER 110 mg/dL 70-110 TESTED AT [place] [address] ([facility]ANNER) (test code = [facility] 1538) [address] POCT-GLUCOSE [id number] 09:17:00 Test Item Value Reference Range Interpretation Comments POC-GLUCOSE METER 138 mg/dL 70-110 H TESTED AT [facility] 6720 (BEAKER) (test code = PAUL Tanner [facility] 1538) [address] POCT-GLUCOSE [id number] 06:11:00 Test Item Value Reference Range Interpretation Comments POC-GLUCOSE METER 128 mg/dL 70-110 H TESTED AT [facility] 6720 (BEAKER) (test code = PAUL Tanner [facility] 1538) [address] BASIC METABOLIC [id number] 03:40:00 Test Item Value Reference Range Interpretation [...] PATIEN TS. CBC W/PLT COUNT & AUTO [id number] 03:26:00 Test Item Value Reference Range Interpretation [...] % 0-1 PERCENT (BEAKER) (test code = 2800) POCT-GLUCOSE [id number] 00:12:00 Test Item Value Reference Range Interpretation Comments POC-GLUCOSE METER 286 mg/dL 70-110 H TESTED AT [facility] 6720 (BEAKER) (test code = [place] 1538) [address] POCT-GLUCOSE [id number] 21:36:00 Test Item Value Reference Range Interpretation Comments POC-GLUCOSE METER 241 mg/dL 70-110 H TESTED AT [facility] 6720 (BEAKER) (test code = PAUL Tanner [facility] 1538) 13260 POCT-GLUCOSE [id number] 18:30:00 Test Item Value Reference Range Interpretation Comments POC-GLUCOSE METER 426 mg/dL 70-110 HH TESTED AT [facility] 6720 ([facility]) (test code = PAUL Tanner [facility] 1538) [address] POCT-GLUCOSE [id number] 16:29:00 Test Item Value Reference Range Interpretation Comments POC-GLUCOSE METER > mg/dL 70-110 HH OUTSIDE ME ASURING (BEAKER) (test code RANGETES MAGDALENO AT [place] [address] = 1538) [facility] [address] POCT-GLUCOSE [id number] 12:13:00 Test Item Value Reference Range Interpretation Comments POC-GLUCOSE METER 69 mg/dL 70-110 L Notified R Collin MD/TESTED AT ([facility]) (test code = [facility] [address] [place] [address] 1538) [facility] 7703 0 BASIC METABOLIC [id number] 08:30:00 Test Item Value Reference Range Interpretation [...] PATIEN TS. CBC W/PLT COUNT & AUTO [id number] 07:20:00 Test Item Value Reference Range Interpretation [...] 417) IMMATURE GRANULOCYTES-RELATIVE 1 % 0-1 PERCENT (BANNER) (test code = 2801) POCT-GLUCOSE [id number] 06:18:00 Test Item Value Reference Range Interpretation Comments POC-GLUCOSE METER 174 mg/dL 70-110 H TESTED AT [place] [address] ([facility]NER) (test code = [facility] 1538) [address] POCT-GLUCOSE [id number] 00:56:00 Test Item Value Reference Range Interpretation Comments POC-GLUCOSE METER 398 mg/dL 70-110 H TESTED AT [place] [address] ([facility]NER) (test code = [facility] 1538) 7[address] POCT-GLUCOSE [id number] 21:15:00 Test Item Value Reference Range Interpretation Comments POC-GLUCOSE METER 85 mg/dL 70-110 TESTED AT [place] [address] ([facility]NER) (test code = [facility] [address] 1538) POCT-GLUCOSE [id number] 17:21:00 Test Item Value Reference Range Interpretation Comments POC-GLUCOSE METER 196 mg/dL 70-110 H TESTED AT [place] [address] ([facility]NER) (test code = [facility] 1538) 732[address] POCT-GLUCOSE [id number] 15:31:00 Test Item Value Reference Range Interpretation Comments POC-GLUCOSE METER 428 mg/dL 70-110 HH TESTED AT [place] [address] ([facility]) (test code = [facility] 1538) [address] POCT-GLUCOSE [id number] 12:04:00 Test Item Value Reference Range Interpretation Comments POC-GLUCOSE METER 81 mg/dL 70-110 TESTED AT [place] [address] ([facility]) (test code = [facility] [address] 1538) BLOOD GAS, [id number] 09:46:00 Test Item Value Reference Range Interpretation Comments PH VENOUS (BANNER) (test code = 7.41 7.32-7.42 701) PCO2 VENOUS (BANNER) (test code = 72 mmHg 41-51 HH 755) PO2 VENOUS (BANNER) (test code = 56 mmHg 25-40 H 702) O2 SATURATION VENOUS (BANNER) 87.7 % 40.0-70.0 H (test code = 703) HCO3 VENOUS (BANNER) (test code = 45 mmol/L 21-29 HH 705) BASE EXCESS VENOUS (BEAKER) (test 17.9 mmol/L -2.0-3.0 H code = 704) PATIENT TEMPERATURE (BEAKER) 37.0 C (test code = 1818) FIO2 (BEAKER) (test code = 1819) 100.0 % POCT-GLUCOSE [id number] 09:13:00 Test Item Value Reference Range Interpretation Comments POC-GLUCOSE METER 109 mg/dL 70-110 TESTED AT [facility] 6720 ([place]ANNER) (test code = PAUL Tanner [facility] 1538) [address] POCT-GLUCOSE [id number] 08:51:00 Test Item Value Reference Range Interpretation Comments POC-GLUCOSE METER 69 mg/dL 70-110 L Notified Ciro Polanco MD/TESTED AT ([facility]NER) (test code = [facility] 67 [place] 1538) [facility] 7703 0 BASIC METABOLIC [id number] 06:32:00 Test Item Value Reference Range Interpretation [...] PATIEN TS. CBC W/PLT COUNT & AUTO [id number] 05:59:00 Test Item Value Reference Range Interpretation [...] PERCENT (BEAKER) (test code = 2801) POCT-GLUCOSE [id number] 21:54:00 Test Item Value Reference Range Interpretation Comments POC-GLUCOSE METER 175 mg/dL 70-110 H TESTED AT [facility] 6720 ([facility]ANNER) (test code = PAUL Tanner [facility] 1538) 7[address]65 POCT-GLUCOSE [id number] 17:41:00 Test Item Value Reference Range Interpretation Comments POC-GLUCOSE METER 391 mg/dL 70-110 H Notified R Collin or ([facility]ANNER) (test code = Patien t refused repeat 1538) test/TESTED AT [place] [address] [facility] [facility] [address] POCT-GLUCOSE [id number] 12:40:00 Test Item Value Reference Range Interpretation Comments POC-GLUCOSE METER 104 mg/dL 70-110 TESTED AT [place] [address] ([facility]NER) (test code = PAUL Tanner [facility] 1538) [address] POCT-GLUCOSE [id number] 09:09:00 Test Item Value Reference Range Interpretation Comments POC-GLUCOSE METER 74 mg/dL 70-110 TESTED AT [place] [address] ([place]ANNER) (test code = PAUL Tanner [facility] [address] 1538) BASIC METABOLIC [id number] 06:42:00 Test Item Value Reference Range Interpretation [...] APPLICABLE FOR DIALYSIS PATIEN TS. LACTIC ACID, [id number] 06:34:00 Test Item Value Reference Range Interpretation Comments LACTATE BLOOD VENOUS (2) (BEAKER) 1.9 mmol/L 0.5-2.2 (test code = 2872) CBC W/PLT COUNT & AUTO [id number] 06:15:00 Test Item Value Reference Range Interpretation [...] PERCENT (BEAKER) (test code = 2801) BLOOD [id number] 02:01:00 Test Item Value Reference Range Interpretation Comments CULTURE (BEAKER) (test No growth in 5 days code = 1095) BLOOD [id number] 02:01:00 Test Item Value Reference Range Interpretation Comments CULTURE (BEAKER) (test No growth in 5 days code = 1095) POCT-GLUCOSE [id number] 22:01:00 Test Item Value Reference Range Interpretation Comments POC-GLUCOSE METER 330 mg/dL 70-110 H Notified R N MD/TESTED ([place]) (test code = AT [facility] [address] [place] [address]) [facility] 7703 0 POCT-GLUCOSE [id number] 17:27:00 Test Item Value Reference Range Interpretation Comments POC-GLUCOSE METER 306 mg/dL 70-110 H Notified R N or MD (BANNER) (test code = Adelia cooney [facility] 1538) test/TESTED AT [place] [address] [facility] [address] POCT-GLUCOSE [id number] 12:48:00 Test Item Value Reference Range Interpretation Comments POC-GLUCOSE METER 251 mg/dL 70-110 H TESTED AT [place] [address] ([place]ANNER) (test code = PAUL Tanner [facility] 1538) [address] CBC W/PLT COUNT & AUTO [id number] 10:15:00 Test Item Value Reference Range Interpretation [...] 3438) Received comment: User comments: Slide comments:POCT-GLUCOSE [id number] 09:42:00 Test Item Value Reference Range Interpretation Comments POC-GLUCOSE METER 88 mg/dL 70-110 TESTED AT [facility] 6720 (BEAKER) (test code = [place] [address] 1538) BLOOD GAS, [id number] 08:59:00 Test Item Value Reference Range Interpretation [...] = 1819) 32.0 % AFB CULTURE + [id number] 07:47:00 Test Item Value Reference Range Interpretation Comments CULTURE (BEAKER) (test No acid-fast bacilli code = 1095) isolated in 42 days AFB SMEAR (BEAKER) No acid fast bacilli (test code = 994) seen BASIC METABOLIC [id number] 06:21:00 Test Item Value Reference Range Interpretation [...] NOT APPLICABLE FOR DIALYSIS PATIEN TS. POCT-GLUCOSE [id number] 21:06:00 Test Item Value Reference Range Interpretation Comments POC-GLUCOSE METER 351 mg/dL 70-110 H TESTED AT [place] [address] ([place]ANNER) (test code = PAUL Tanner [facility] 1538) [address] POCT-GLUCOSE [id number] 17:43:00 Test Item Value Reference Range Interpretation Comments POC-GLUCOSE METER > mg/dL 70-110 HH OUTSIDE ME ASURING (BANNER) (test code = RANGEW [facility] Repeat 1538) Test/TESTED AT [address] [address] POCT-GLUCOSE [id number] 12:03:00 Test Item Value Reference Range Interpretation Comments POC-GLUCOSE METER 370 mg/dL 70-110 H Will Repea t Test/TESTED ([place]) (test code = AT [address] 1538) [facility] 7703 0 POCT-GLUCOSE [id number] 09:33:00 Test Item Value Reference Range Interpretation Comments POC-GLUCOSE METER 243 mg/dL 70-110 H TESTED AT [place] [address] (BANNER) (test code = [facility] Ciro [facility] 1538) [address] CBC W/PLT COUNT & AUTO [id number] 07:52:00 Test Item Value Reference Range Interpretation Comments WHITE BLOOD CELL COUNT (BEAKER) 17.7 K/ L 3.5-10.5 H (test code = 775) RED BLOOD CELL COUNT (BANNER) 3.15 M/ L 3.93-5.22 L (test code [...] Received comment: User comments: Slide comments:BASIC METABOLIC [id number] 06:47:00 Test Item Value Reference Range Interpretation [...] 358) GLUCOSE RANDOM 408 mg/dL 70-105 HH (BEAKER) (test code = 652) CALCIUM (BEAKER) 8.3 mg/dL 8.4-10.2 L (test code = 697) EGFR (BEAKER) (test 115 mL/min/1.73 ESTIM ATED GFR IS code = 1092) sq m NOT ACCURATE CREATININE CLEARANCE IN PREDICTING GLOMERULAR FILTRATION RATE . ESTIMATED GFR I S NOT APPLICABLE FOR DIALYSIS PATIEN TS. POCT-GLUCOSE [id number] 21:53:00 Test Item Value Reference Range Interpretation Comments POC-GLUCOSE METER 358 mg/dL 70-110 H [facility] ([facility]ER) (test code = PAUL Tanner [place] 1538) [address] POCT-GLUCOSE [id number] 20:34:00 Test Item Value Reference Range Interpretation Comments POC-GLUCOSE METER 325 mg/dL 70-110 H TESTED AT [facility] 6720 (BEAKER) (test code = PAUL Tanner [place] 1538) [address] POCT-GLUCOSE [id number] 17:15:00 Test Item Value Reference Range Interpretation Comments POC-GLUCOSE METER 446 mg/dL 70-110 HH Notified Ciro Polanco MD/TESTED (SIMI) (test code = AT [facility] 6720 [place] Sanchez8) [facility] [address], CHEST WITH IV CONTRAST- PE TEST [id number] 16:56:00FINAL REPORT DOSE REDUCTION: The examination was [...] pneumonitis. Trace pleural effusions. Signed: Lg Valdez MDRrejiort Verified Date/Time: 04/15/2019 16:56:47 Reading Location: [address] Reading Room POCT-GLUCOSE [id number] 11:53:00 Test Item Value Reference Range Interpretation Comments POC-GLUCOSE METER 371 mg/dL 70-110 H Notified Ciro Polanco MD/TESTED (BEAKER) (test code = AT [facility] 6720 [place] 1538) [place] 7703 0 CBC W/PLT COUNT & AUTO [id number] 10:05:00 Test Item Value Reference Range Interpretation [...] 3438) Received comment: User comments: Slide comments:POCT-GLUCOSE [id number] 07:57:00 Test Item Value Reference Range Interpretation Comments POC-GLUCOSE METER 337 mg/dL 70-110 H Notified R N MD/TESTED (BEAKER) (test code = AT [facility] 6720 [place] 2568) [facility] 7703 0 BASIC METABOLIC [id number] 06:56:00 Test Item Value Reference Range Interpretation [...] NOT APPLICABLE FOR DIALYSIS PATIEN TS. SCREEN, [id number] 01:40:00 Test Item Value Reference Range Interpretation Comments TEST URINE (BEAKER) (test Negative code = 583) POCT-GLUCOSE [id number] 18:03:00 Test Item Value Reference Range Interpretation Comments POC-GLUCOSE METER 327 mg/dL 70-110 H Notified R N MD/TESTED (BEAKER) (test code = AT [facility] 67[address] [place] 8355) [place] 7703 0 CBC W/PLT COUNT & AUTO [id number] 15:01:00 Test Item Value Reference Range Interpretation [...] 3438) Received comment: User comments: Slide comments:POCT-GLUCOSE [id number] 11:50:00 Test Item Value Reference Range Interpretation Comments POC-GLUCOSE METER 422 mg/dL 70-110 HH Notified R Collin STAPLETON/TESTED (BEAKER) (test code = AT [facility] 6720 [place] 1538) [facility] 770 0 POCT-GLUCOSE [id number] 07:40:00 Test Item Value Reference Range Interpretation Comments POC-GLUCOSE METER > mg/dL 70-110 HH OUTSIDE ME ASURING (BEAKER) (test code RANGENot ified JORDON MD/TESTED = 1538) AT [facility] [address] [place] [address] 0 [id number] 05:34:00 Test Item Value Reference Range Interpretation Comments BLOOD UREA NITROGEN (BEAKER) (test 17 mg/dL 05-14 code = 354) [id number] 05:34:00 Test Item Value Reference Range Interpretation Comments CREATININE (BEAKER) 1.09 mg/dL 0.57-1.25 (test code = 358) EGFR (BEAKER) (test 74 mL/min/1.73 ESTIMA MAGDALENO GFR IS code = 1092) sq m NOT ACCURATE CREATININE CLEARANCE IN PREDICTING GLOMERULAR FILTRATION RATE . ESTIMATED GFR I S NOT APPLICABLE FOR DIALYSIS PATIEN TS. POCT-GLUCOSE [id number] 22:01:00 Test Item Value Reference Range Interpretation Comments POC-GLUCOSE METER 314 mg/dL 70-110 H Notified Ciro Polanco MD/TESTED (BEAKER) (test code = AT [facility] 6720 [place] 1538) [place] [address] 0 POCT-GLUCOSE [id number] 17:42:00 Test Item Value Reference Range Interpretation Comments POC-GLUCOSE METER 192 mg/dL 70-110 H TESTED AT [place] [address] (BEAKER) (test code = PAUL Tanner [facility] 1538) [address] POCT-GLUCOSE [id number] 14:10:00 Test Item Value Reference Range Interpretation Comments POC-GLUCOSE METER 372 mg/dL 70-110 H TESTED AT [place] [address] (BEAKER) (test code = NAOM[place] Ciro [facility] 1538) [address] BASIC METABOLIC [id number] 07:00:00 Test Item Value Reference Range Interpretation Comments SODIUM (BEAKER) 139 meq/L 136-145 (test code = 381) POTASSIUM (BEAKER) 4.1 meq/L 3.5-5.1 (test code = 379) CHLORIDE (BEAKER) 103 meq/L 98-107 (test code = 382) CO2 (BEAKER) (test 27 meq/L 22-29 code = 355) BLOOD UREA NITROGEN 20 mg/dL 7-21 (BEAKER) (test code = 354) CREATININE (BEAKER) 0.93 mg/dL 0.57-1.25 (test code = 358) GLUCOSE RANDOM 278 mg/dL 70-105 H (BEAKER) (test code = 652) CALCIUM (BEAKER) 7.8 mg/dL 8.4-10.2 L (test code = 697) EGFR (BEAKER) (test 88 mL/min/1.73 ESTIMA MAGDALENO GFR IS code = 1092) sq m NOT ACCURATE CREATININE CLEARANCE IN PREDICTING GLOMERULAR FILTRATION RATE . ESTIMATED GFR I S NOT APPLICABLE FOR DIALYSIS PATIEN TS. POCT-GLUCOSE [id number] 06:44:00 Test Item Value Reference Range Interpretation Comments POC-GLUCOSE METER 177 mg/dL 70-110 H TESTED AT [place] [address] (BEAKER) (test code = PAUL Tanenr [facility] 1538) [address] [id number] 05:08:00 Test Item Value Reference Range Interpretation Comments BLOOD UREA NITROGEN (BEAKER) (test 21 mg/dL 7-21 code = 354) [id number] 05:08:00 Test Item Value Reference Range Interpretation Comments CREATININE (BEAKER) 1.03 mg/dL 0.57-1.25 (test code = 358) EGFR (BEAKER) (test 79 mL/min/1.73 ESTIMA MAGDALENO GFR IS code = 1092) sq m NOT ACCURATE CREATININE CLEARANCE IN PREDICTING GLOMERULAR FILTRATION RATE . ESTIMATED GFR I S NOT APPLICABLE FOR DIALYSIS PATIEN TS. POCT-GLUCOSE [id number] 03:44:00 Test Item Value Reference Range Interpretation Comments POC-GLUCOSE METER 411 mg/dL 70-110 HH Notified R Collin STAPLETON/TESTED ([facility]) (test code = AT [address] 1538) [facility] 7703 0 POCT-GLUCOSE [id number] 02:22:00 Test Item Value Reference Range Interpretation Comments POC-GLUCOSE METER 409 mg/dL 70-110 HH TESTED AT [place] [address] (BANNER) (test code = PAUL Tanner [place] [id number]) [address] POCT-GLUCOSE [id number] 00:48:00 Test Item Value Reference Range Interpretation Comments POC-GLUCOSE METER > mg/dL 70-110 HH OUTSIDE [place] ASURING (BEAKER) (test code RANGENot ified JORDON STAPLETON/TESTED = 1538) AT [facility] 67[address] [facility] 7703 0 B-TYPE NATRIURETIC FACTOR (BNP)2019-04-12 19:52:00 Test Item Value Reference Range Interpretation Comments B-TYPE NATRIURETIC PEPTIDE (BEAKER) 618 pg/mL 0-100 H (test code = 700) BASIC METABOLIC [id number] 19:34:00 Test Item Value Reference Range Interpretation [...] PATIEN TS. CBC W/PLT COUNT & AUTO [id number] 19:32:00 Test Item Value Reference Range Interpretation [...] lobe, possibly representing superimposed pneumonia. Signed: Flip Singerort Verified Date/Time: 04/12/2019 19:21:17 Reading Location: [facility] Reading Room - [place] [address] POCT-LACTIC ACID, [id number] 18:53:00 Test Item Value Reference Range Interpretation Comments POC-LACTIC ACID, 1.1 mmol/L 0.9-1.7 TESTED AT [facility] 6720 VENOUS (BEAKER) (test [place] code = 2805) [address] FUNGUS CULTURE + [id number] 20:03:00 Test Item Value Reference Range Interpretation Comments CULTURE (BEAKER) (test No fungus isolated in code = 1095) 28 days FUNGUS SMEAR (BEAKER) No fungi seen (test code = 1406) POCT-GLUCOSE [id number] 16:35:00 Test Item Value Reference Range Interpretation Comments POC-GLUCOSE METER 271 mg/dL 70-110 H TESTED AT [place] [address] (BEAKER) (test code = PAUL Tanner [place] 1538) [address] POCT-GLUCOSE [id number] 11:17:00 Test Item Value Reference Range Interpretation Comments POC-GLUCOSE METER 372 mg/dL 70-110 H Notified R Collin STAPLETON/TESTED (BEAKER) (test code = AT [place] [address] [facility] 1538) [facility] 7703 0 POCT-GLUCOSE [id number] 08:26:00 Test Item Value Reference Range Interpretation Comments POC-GLUCOSE METER 264 mg/dL 70-110 H TESTED AT [place] [address] (BEAKER) (test code = PAUL Tanner [place] 1538) [address] [id number] 07:40:00 Test Item Value Reference Range Interpretation Comments MAGNESIUM (BEAKER) (test code = 1.3 mg/dL 1.6-2.6 L 627) HEPATIC FUNCTION [id number] 07:40:00 Test Item Value Reference Range Interpretation [...] 96 U/L 6-55 H 347) BUN AND [id number] 07:40:00 Test Item Value Reference Range Interpretation Comments BLOOD UREA NITROGEN 20 mg/dL 7-21 (BEAKER) (test code = 354) CREATININE (BEAKER) 0.83 mg/dL 0.57-1.25 (test code = 358) EGFR (BEAKER) (test 101 mL/min/1.73 ESTIM ATED GFR IS code = 1092) sq m NOT ACCURATE CREATININE CLEARANCE IN PREDICTING GLOMERULAR FILTRATION RATE . ESTIMATED GFR I S NOT APPLICABLE FOR DIALYSIS PATIEN TS. POCT-GLUCOSE [id number] 21:31:00 Test Item Value Reference Range Interpretation Comments POC-GLUCOSE METER 311 mg/dL 70-110 H Notified Ciro Polanco MD/TESTED ([place]) (test code = AT [address] 1538) [facility] 7703 0 POCT-GLUCOSE [id number] 18:44:00 Test Item Value Reference Range Interpretation Comments POC-GLUCOSE METER > mg/dL 70-110 HH OUTSIDE ME ASURING (BANNER) (test code RANGETES MAGDALENO AT [place] [address] = 1538) [place] [facility] [address] POCT-GLUCOSE [id number] 11:53:00 Test Item Value Reference Range Interpretation Comments POC-GLUCOSE METER 95 mg/dL 70-110 TESTED AT [place] [address] (BANNER) (test code = PAUL Tanner [facility] [address] 1538) [id number] 08:39:00 Test Item Value Reference Range Interpretation Comments PHOSPHORUS (BEAKER) (test code = 3.5 mg/dL 2.3-4.7 604) [id number] 08:39:00 Test Item Value Reference Range Interpretation Comments MAGNESIUM (BEAKER) (test code = 1.6 mg/dL 1.6-2.6 627) BUN AND [id number] 08:39:00 Test Item Value Reference Range Interpretation Comments BLOOD UREA NITROGEN 28 mg/dL 7-21 H (AKER) (test code = 354) CREATININE (BEAKER) 0.72 mg/dL 0.57-1.25 (test code = 358) EGFR ([facility]) (test 119 mL/min/1.73 ESTIM ATED GFR IS code = 1092) sq m NOT ACCURATE CREATININE CLEARANCE IN PREDICTING GLOMERULAR FILTRATION RATE . ESTIMATED GFR I S NOT APPLICABLE FOR DIALYSIS PATIEN TS. POCT-GLUCOSE [id number] 08:37:00 Test Item Value Reference Range Interpretation Comments POC-GLUCOSE METER 159 mg/dL 70-110 H TESTED AT [place] [address] (BANNER) (test code = [facility] 1538) [address] POCT-GLUCOSE [id number] 21:42:00 Test Item Value Reference Range Interpretation Comments POC-GLUCOSE METER 223 mg/dL 70-110 H TESTED AT [place] [address] (BANNER) (test code = [facility] 1538) [address] POCT-GLUCOSE [id number] 18:05:00 Test Item Value Reference Range Interpretation Comments POC-GLUCOSE METER > mg/dL 70-110 HH OUTSIDE ME ASURING (BANNER) (test code RANGETES MAGDALENO AT [place] [address] = 1538) [facility] [address] BUN AND [id number] 17:32:00 Test Item Value Reference Range Interpretation Comments BLOOD UREA NITROGEN 31 mg/dL 7-21 H (BANNER) (test code = 354) CREATININE (BANNER) 1.09 mg/dL 0.57-1.25 (test code = 358) EGFR (BANNER) (test 74 mL/min/1.73 ESTIMA MAGDALENO GFR IS code = 1092) sq m NOT ACCURATE CREATININE CLEARANCE IN PREDICTING GLOMERULAR FILTRATION RATE . ESTIMATED GFR I S NOT APPLICABLE FOR DIALYSIS PATIEN TS. POCT-GLUCOSE [id number] 12:47:00 Test Item Value Reference Range Interpretation Comments POC-GLUCOSE METER 135 mg/dL 70-110 H TESTED AT [place] [address] ([facility]) (test code = [facility] 1538) [id number] POCT-GLUCOSE [id number] 12:16:00 Test Item Value Reference Range Interpretation Comments POC-GLUCOSE METER 42 mg/dL 70-110 L TESTED AT [place] [address] ([facility]) (test code = [facility] [address] 1538) POCT-GLUCOSE [id number] 10:19:00 Test Item Value Reference Range Interpretation Comments POC-GLUCOSE METER 303 mg/dL 70-110 H TESTED AT [place] [address] ([facility]) (test code = [facility] 1538) [id number] POCT-GLUCOSE [id number] 08:48:00 Test Item Value Reference Range Interpretation Comments POC-GLUCOSE METER 307 mg/dL 70-110 H TESTED AT [facility] 67[facility] ([facility]) (test code = [facility] 1538) [id number] 05:02:00 Test Item Value Reference Range Interpretation Comments MAGNESIUM ([facility]) 1.8 mg/dL 1.6-2.6 Specimen slightly (test code = 627) hemolyzed POCT-GLUCOSE [id number] 21:59:00 Test Item Value Reference Range Interpretation Comments POC-GLUCOSE METER 191 mg/dL 70-110 H TESTED AT [place] [address] ([facility]) (test code = [facility] 1538) [id number] POCT-GLUCOSE [id number] 17:44:00 Test Item Value Reference Range Interpretation Comments POC-GLUCOSE METER 222 mg/dL 70-110 H TESTED AT [place] [address] ([facility]) (test code = [facility] 1538) [id number] POCT-GLUCOSE [id number] 12:19:00 Test Item Value Reference Range Interpretation Comments POC-GLUCOSE METER 88 mg/dL 70-110 TESTED AT [place] [address] ([facility]) (test code = [facility] [address] 1538) [id number] 07:28:00 Test Item Value Reference Range Interpretation Comments MAGNESIUM ([facility]) (test code = 1.8 mg/dL 1.6-2.6 627) COMPREHENSIVE METABOLIC [id number] 07:28:00 Test Item Value Reference Range Interpretation [...] NOT APPLICABLE FOR DIALYSIS PATIEN TS. POCT-GLUCOSE [id number] 21:14:00 Test Item Value Reference Range Interpretation Comments POC-GLUCOSE METER 179 mg/dL 70-110 H TESTED AT [place] [address] ([facility]) (test code = [facility] 1538) 8[address] POCT-GLUCOSE [id number] 17:49:00 Test Item Value Reference Range Interpretation Comments POC-GLUCOSE METER 331 mg/dL 70-110 H TESTED AT [place] [address] ([facility]) (test code = [facility] 1538) [address] POCT-GLUCOSE [id number] 11:40:00 Test Item Value Reference Range Interpretation Comments POC-GLUCOSE METER 241 mg/dL 70-110 H TESTED AT [place] [address] ([facility]) (test code = [facility] 1538) 7[address] POCT-GLUCOSE [id number] 08:43:00 Test Item Value Reference Range Interpretation Comments POC-GLUCOSE METER 52 mg/dL 70-110 L TESTED AT [place] [address] ([facility]) (test code = [facility] [address] 1538) COMPREHENSIVE METABOLIC [id number] 08:01:00 Test Item Value Reference Range Interpretation [...] S NOT APPLICABLE FOR DIALYSIS PATIEN TS. [id number] 07:57:00 Test Item Value Reference Range Interpretation Comments MAGNESIUM (BEAKER) (test code = 1.3 mg/dL 1.6-2.6 L 627) U/S, ABDOMINAL, [id number] 03:59:00Abdomen limited area? Add comment if clarification [...] Fre[place] Verified Date/Time: 03/08/2019 03:59:22 Reading Location: [address] Neuro Reading Room POCT-GLUCOSE [id number] 21:26:00 Test Item Value Reference Range Interpretation Comments POC-GLUCOSE METER 275 mg/dL 70-110 H TESTED AT [place] [address] ([facility]) (test code = PA[facility] T[facility] 1538) 15918 HEPATITIS PANEL, [id number] 19:14:00 Test Item Value Reference Range Interpretation Comments HEPATITIS A IGM ANTIBODY (REES46) Nonreactive Nonreactive (test code = 498) HEPATITIS B CORE IGM ANTIBODY Nonreactive Nonreactive ([facility]) (test code = 645) HEPATITIS C ANTIBODY ([facility]) Nonreactive Nonreactive (test code = 367) HEPATITIS B SURFACE ANTIGEN (2) Nonreactive Nonreactive ([facility]) (test code = 2585) [id number] 18:18:00 Test Item Value Reference Range Interpretation Comments POTASSIUM ([facility]) (test code = 4.9 meq/L 3.5-5.1 379) POCT-GLUCOSE [id number] 16:48:00 Test Item Value Reference Range Interpretation Comments POC-GLUCOSE METER 143 mg/dL 70-110 H TESTED AT [place] [address] ([facility]) (test code = [facility] 1538) 73183 POCT-GLUCOSE [id number] 12:30:00 Test Item Value Reference Range Interpretation Comments POC-GLUCOSE METER 142 mg/dL 70-110 H TESTED AT [place] [address] ([facility]) (test code = [facility] T[facility] 1538) [address] POCT-GLUCOSE [id number] 11:58:00 Test Item Value Reference Range Interpretation Comments POC-GLUCOSE METER 25 mg/dL 70-110 LL Notified R Collin STAPLETON/TESTED AT ([facility]) (test code = [place] [id number]) [facility] 7703 0 POCT-GLUCOSE [id number] 11:34:00 Test Item Value Reference Range Interpretation Comments POC-GLUCOSE METER 50 mg/dL 70-110 L TESTED AT [place] [address] ([facility]) (test code = PAUL Tanner [place] [id number] 1538) CREATINE KINASE (CK)2019-03-07 11:09:00 Test Item Value Reference Range Interpretation Comments CREATINE KINASE TOTAL (BEAKER) (test 90 U/L 29-200 code = 380) POCT-GLUCOSE [id number] 08:07:00 Test Item Value Reference Range Interpretation Comments POC-GLUCOSE METER 376 mg/dL 70-110 H Notified R Collin STAPLETON/TESTED ([facility]) (test code = AT [place] [address]) [place] [id number] 0 COMPREHENSIVE METABOLIC [id number] 07:23:00 Test Item Value Reference Range Interpretation [...] S NOT APPLICABLE FOR DIALYSIS PATIEN TS. [id number] 07:04:00 Test Item Value Reference Range Interpretation Comments PHOSPHORUS ([facility]AKER) (test code = 5.3 mg/dL 2.3-4.7 H 604) [id number] 07:04:00 Test Item Value Reference Range Interpretation Comments MAGNESIUM ([facility]AK[facility]) (test code = 2.0 mg/dL 1.6-2.6 627) CBC W/PLT COUNT & AUTO [id number] 06:44:00 Test Item Value Reference Range Interpretation [...] PERCENT (BEAKER) (test code = 2801) POCT-GLUCOSE [id number] 21:22:00 Test Item Value Reference Range Interpretation Comments POC-GLUCOSE METER 74 mg/dL 70-110 TESTED AT [place] [address] ([facility]) (test code = [facility] [address] 1538) POCT-GLUCOSE [id number] 18:21:00 Test Item Value Reference Range Interpretation Comments POC-GLUCOSE METER 166 mg/dL 70-110 H TESTED AT [place] [address] ([facility]) (test code = [facility] T[facility] 1538) [address]503 POCT-GLUCOSE [id number] 12:56:00 Test Item Value Reference Range Interpretation Comments POC-GLUCOSE METER 258 mg/dL 70-110 H TESTED AT [place] [address] ([facility]) (test code = [facility] 1538) [address] POTASSIUM-STAT [id number] 09:11:00 Test Item Value Reference Range Interpretation Comments POTASSIUM (BEAKER) (test code = 5.9 meq/L 3.6-5.5 H 379) POCT-GLUCOSE [id number] 09:07:00 Test Item Value Reference Range Interpretation Comments POC-GLUCOSE METER 278 mg/dL 70-110 H TESTED AT [place] [address] ([facility]) (test code = [facility] 1538) [address]67[address] [id number] 07:43:00 Test Item Value Reference Range Interpretation Comments POTASSIUM (BEAKER) (test code = 6.1 meq/L 3.5-5.1 HH 379) [id number] 07:38:00 Test Item Value Reference Range Interpretation Comments MAGNESIUM ([facility]) (test code = 1.1 mg/dL 1.6-2.6 L 627) [id number] 07:38:00 Test Item Value Reference Range Interpretation Comments BLOOD UREA NITROGEN (BEAKER) (test 25 mg/dL 7-21 H code = 354) [id number] 07:38:00 Test Item Value Reference Range Interpretation Comments CREATININE (BEAKER) 0.78 mg/dL 0.57-1.25 (test code = 358) EGFR (BEAKER) (test 108 mL/min/1.73 ESTIM ATED GFR IS code = 1092) sq m NOT ACCURATE CREATININE CLEARANCE IN PREDICTING GLOMERULAR FILTRATION RATE . ESTIMATED GFR I S NOT APPLICABLE FOR DIALYSIS PATIEN TS. POCT-GLUCOSE [id number] 01:39:00 Test Item Value Reference Range Interpretation Comments POC-GLUCOSE METER 98 mg/dL 70-110 TESTED AT [place] [address] ([facility]) (test code = [facility] [address] 1538) POCT-GLUCOSE [id number] 01:39:00 Test Item Value Reference Range Interpretation Comments POC-GLUCOSE METER 63 mg/dL 70-110 L TESTED AT [place] [address] ([facility]) (test code = [facility] [address] 1538) POCT-GLUCOSE [id number] 21:42:00 Test Item Value Reference Range Interpretation Comments POC-GLUCOSE METER 96 mg/dL 70-110 TESTED AT [place] [address] ([facility]) (test code = [facility] [address] 1538) POCT-GLUCOSE [id number] 17:58:00 Test Item Value Reference Range Interpretation Comments POC-GLUCOSE METER 266 mg/dL 70-110 H TESTED AT [place] [address] ([facility]) (test code = [facility] 1538) [address] POCT-GLUCOSE [id number] 13:54:00 Test Item Value Reference Range Interpretation Comments POC-GLUCOSE METER 239 mg/dL 70-110 H TESTED AT [place] [address] ([facility]) (test code = [facility] 1538) 88466 POCT-GLUCOSE [id number] 12:40:00 Test Item Value Reference Range Interpretation Comments POC-GLUCOSE METER 149 mg/dL 70-110 H TESTED AT [place] [address] ([facility]) (test code = [facility] 1538) [address]40 POCT-GLUCOSE [id number] 11:48:00 Test Item Value Reference Range Interpretation Comments POC-GLUCOSE METER < mg/dL 70-110 LL OUTSIDE ME ASURING ([facility]) (test code RANGETES MAGDALENO AT [place] [address] = 1538) [facility] [address] POCT-GLUCOSE [id number] 08:28:00 Test Item Value Reference Range Interpretation Comments POC-GLUCOSE METER 232 mg/dL 70-110 H TESTED AT [place] [address] ([facility]) (test code = [facility] T[facility] 1538) 926[address] [id number] 07:14:00 Test Item Value Reference Range Interpretation Comments POTASSIUM ([facility]AKER) (test code = 5.3 meq/L 3.5-5.1 H 379) [id number] 07:14:00 Test Item Value Reference Range Interpretation Comments MAGNESIUM ([facility]AKER) (test code = 1.7 mg/dL 1.6-2.6 627) [id number] 07:14:00 Test Item Value Reference Range Interpretation Comments BLOOD UREA NITROGEN (BEAKER) (test 30 mg/dL 7-21 H code = 354) [id number] 07:14:00 Test Item Value Reference Range Interpretation Comments CREATININE ([facility]) 0.78 mg/dL 0.57-1.25 (test code = 358) EGFR ([facility]) (test 108 mL/min/1.73 ESTIM ATED GFR IS code = 1092) sq m NOT ACCURATE CREATININE CLEARANCE IN PREDICTING GLOMERULAR FILTRATION RATE . ESTIMATED GFR I S NOT APPLICABLE FOR DIALYSIS PATIEN TS. POCT-GLUCOSE [id number] 21:28:00 Test Item Value Reference Range Interpretation Comments POC-GLUCOSE METER 334 mg/dL 70-110 H Will Repea t Test/TESTED ([facility]) (test code = AT [address] 1538) [facility] 7703 0 POCT-GLUCOSE [id number] 19:23:00 Test Item Value Reference Range Interpretation Comments POC-GLUCOSE METER 362 mg/dL 70-110 H TESTED AT [place] [address] ([facility]) (test code = [facility] 1538) [address] POCT-GLUCOSE [id number] 17:21:00 Test Item Value Reference Range Interpretation Comments POC-GLUCOSE METER > mg/dL 70-110 HH OUTSIDE ME ASURING ([facility]) (test code RANGETES MAGDALENO AT [place] [address] = 1538) [facility] [address] POCT-GLUCOSE [id number] 12:10:00 Test Item Value Reference Range Interpretation Comments POC-GLUCOSE METER 75 mg/dL 70-110 TESTED AT [place] [address] ([facility]) (test code = [place] [id number] 1538) POCT-GLUCOSE [id number] 11:26:00 Test Item Value Reference Range Interpretation Comments POC-GLUCOSE METER 36 mg/dL 70-110 LL TESTED AT [place] [address] ([facility]) (test code = [facility] Ciro [facility] [address] 1538) POCT-GLUCOSE [id number] 08:13:00 Test Item Value Reference Range Interpretation Comments POC-GLUCOSE METER 154 mg/dL 70-110 H TESTED AT [place] [address] ([facility]) (test code = [facility] 1538) [address] [id number] 07:24:00 Test Item Value Reference Range Interpretation Comments MAGNESIUM ([facility]) (test code = 1.2 mg/dL 1.6-2.6 L 627) [id number] 07:24:00 Test Item Value Reference Range Interpretation Comments BLOOD UREA NITROGEN ([facility]) (test 23 mg/dL 7-21 H code = 354) [id number] 07:24:00 Test Item Value Reference Range Interpretation Comments CREATININE ([facility]) 0.72 mg/dL 0.57-1.25 (test code = 358) EGFR ([facility]) (test 119 mL/min/1.73 ESTIM ATED GFR IS code = 1092) sq m NOT ACCURATE CREATININE CLEARANCE IN PREDICTING GLOMERULAR FILTRATION RATE . ESTIMATED GFR I S NOT APPLICABLE FOR DIALYSIS PATIEN TS. POCT-GLUCOSE [id number] 21:21:00 Test Item Value Reference Range Interpretation Comments POC-GLUCOSE METER 239 mg/dL 70-110 H TESTED AT [facility] 6720 ([facility]) (test code = PA[facility] T[facility] 1538) [address] POCT-GLUCOSE [id number] 17:47:00 Test Item Value Reference Range Interpretation Comments POC-GLUCOSE METER 258 mg/dL 70-110 H TESTED AT [facility] 67 ([facility]) (test code = PA[facility] T[facility] 1538) [address] CF RESPIRATORY [id number] 16:52:00 Test Item Value Reference Range Interpretation Comments CULTURE ([facility]) PSEUDOMONAS A 4+ Pseudomo viki (test code [...] or >4 2+ Normal respiratory derick presentBLOOD [id number] 12:01:00 Test Item Value Reference Range Interpretation Comments CULTURE (BEAKER) (test No growth in 5 days code = 1095) BLOOD [id number] 12:01:00 Test Item Value Reference Range Interpretation Comments CULTURE (BEAKER) (test No growth in 5 days code = 1095) POCT-GLUCOSE [id number] 11:37:00 Test Item Value Reference Range Interpretation Comments POC-GLUCOSE METER 301 mg/dL 70-110 H TESTED AT [place] [address] ([facility]) (test code = [facility] [place] 1538) [address] POCT-GLUCOSE [id number] 09:15:00 Test Item Value Reference Range Interpretation Comments POC-GLUCOSE METER 243 mg/dL 70-110 H TESTED AT [place] [address] ([facility]) (test code = NAOMITAYO Tanner [facility] 1538) [address] POCT-GLUCOSE [id number] 22:09:00 Test Item Value Reference Range Interpretation Comments POC-GLUCOSE METER 222 mg/dL 70-110 H TESTED AT [place] [address] ([facility]) (test code = [facility] [place] 1538) [address] POCT-GLUCOSE [id number] 17:13:00 Test Item Value Reference Range Interpretation Comments POC-GLUCOSE METER 294 mg/dL 70-110 H TESTED AT [place] [address] ([facility]) (test code = NAOMITAYO [facility] [place] 1538) [address] POCT-GLUCOSE [id number] 13:17:00 Test Item Value Reference Range Interpretation Comments POC-GLUCOSE METER 155 mg/dL 70-110 H TESTED AT [place] [address] ([facility]) (test code = NA[place]ITAYO T[facility] [place] 1538) [address] [id number] 10:11:00 Test Item Value Reference Range Interpretation Comments GLUCOSE RANDOM (BEAKER) (test code = 75 mg/dL 70-105 652) [id number] 09:26:00 Test Item Value Reference Range Interpretation Comments MAGNESIUM (BEAKER) 1.3 mg/dL 1.6-2.6 L Specimen slightly (test code = 627) hemolyzed [id number] 09:26:00 Test Item Value Reference Range Interpretation Comments BLOOD UREA NITROGEN ([facility]) (test 13 mg/dL 05-14 code = 354) [id number] 09:26:00 Test Item Value Reference Range Interpretation Comments CREATININE ([facility]) 0.71 mg/dL 0.57-1.25 Specimen slightly (test code = 358) hemolyzed EGFR ([facility]) (test 121 mL/min/1.73 ESTIM ATED GFR IS code = 1092) sq m NOT ACCURATE CREATININE CLEARANCE IN PREDICTING GLOMERULAR FILTRATION RATE . ESTIMATED GFR I S NOT APPLICABLE FOR DIALYSIS PATIEN TS. POCT-GLUCOSE [id number] 08:46:00 Test Item Value Reference Range Interpretation Comments POC-GLUCOSE METER 89 mg/dL 70-110 TESTED AT [place] [address] ([facility]) (test code = [facility] Ciro [facility] [address] 1538) POCT-GLUCOSE [id number] 22:16:00 Test Item Value Reference Range Interpretation Comments POC-GLUCOSE METER 325 mg/dL 70-110 H Verify wit h Lab ([facility]) (test code = draw/T ESTED AT [facility] 1538) [address] [facility] [address] POCT-GLUCOSE [id number] 18:08:00 Test Item Value Reference Range Interpretation Comments POC-GLUCOSE METER 423 mg/dL 70-110 HH TESTED AT [place] [address] ([facility]) (test code = [facility] Ciro [facility] 1538) [address] POCT-GLUCOSE [id number] 11:52:00 Test Item Value Reference Range Interpretation Comments POC-GLUCOSE METER > mg/dL 70-110 HH OUTSIDE ME ASURING ([facility]) (test code RANGENot ified JORDON STAPLETON/TESTED = 1538) AT [place] [address] B KATHRINNER [facility] 7703 0 [id number] 09:24:00 Test Item Value Reference Range Interpretation Comments MAGNESIUM ([facility]) (test code = 1.1 mg/dL 1.6-2.6 L 627) [id number] 09:24:00 Test Item Value Reference Range Interpretation Comments BLOOD UREA NITROGEN ([facility]) (test 18 mg/dL 05-14 code = 354) [id number] 09:24:00 Test Item Value Reference Range Interpretation Comments CREATININE ([facility]) 0.84 mg/dL 0.57-1.25 (test code = 358) EGFR ([facility]) (test 99 mL/min/1.73 ESTIMA MAGDALENO GFR IS code = 1092) sq m NOT ACCURATE CREATININE CLEARANCE IN PREDICTING GLOMERULAR FILTRATION RATE . ESTIMATED GFR I S NOT APPLICABLE FOR DIALYSIS PATIEN TS. POCT-GLUCOSE [id number] 08:38:00 Test Item Value Reference Range Interpretation Comments POC-GLUCOSE METER 382 mg/dL 70-110 H Notified R N MD/TESTED ([facility]) (test code = AT [address] 1538) [facility] 770 0 POCT-GLUCOSE [id number] 21:23:00 Test Item Value Reference Range Interpretation Comments POC-GLUCOSE METER > mg/dL 70-110 HH OUTSIDE ME ASURING ([facility]) (test code RANGENot ified JORDON MD/TESTED = 1538) AT [place] [address] B ERTNER [place] [address] 0 POCT-GLUCOSE [id number] 17:38:00 Test Item Value Reference Range Interpretation Comments POC-GLUCOSE METER 315 mg/dL 70-110 H Notified R N MD/TESTED ([facility]) (test code = AT [address] 1538) [place] [address] 0 [id number] 12:28:00 Test Item Value Reference Range Interpretation Comments MAGNESIUM ([facility]) (test code = 1.2 mg/dL 1.6-2.6 L 627) POCT-GLUCOSE [id number] 12:11:00 Test Item Value Reference Range Interpretation Comments POC-GLUCOSE METER 371 mg/dL 70-110 H TESTED AT [place] [address] ([facility]) (test code = [place] [address]) [address] SPIN/CONCENTRATION [id number] 12:09:00 Test Item Value Reference Range Interpretation Comments CONCENTRATION CHARGED ([facility]) (test Done code = 2657) POCT-GLUCOSE [id number] 08:51:00 Test Item Value Reference Range Interpretation Comments POC-GLUCOSE METER 403 mg/dL 70-110 HH Notified R N MD/TESTED ([facility]) (test code = AT [address] 1538) [place] [address] 0 [id number] 06:48:00 Test Item Value Reference Range Interpretation Comments BLOOD UREA NITROGEN (BEAKER) (test 20 mg/dL 7-21 code = 354) [id number] 06:48:00 Test Item Value Reference Range Interpretation Comments CREATININE (BEAKER) 1.05 mg/dL 0.57-1.25 (test code = 358) EGFR (BEAKER) (test 77 mL/min/1.73 ESTIMA MAGDALENO GFR IS code = 1092) sq m NOT ACCURATE CREATININE CLEARANCE IN PREDICTING GLOMERULAR FILTRATION RATE . ESTIMATED GFR I S NOT APPLICABLE FOR DIALYSIS PATIEN TS. POCT-GLUCOSE [id number] 23:38:00 Test Item Value Reference Range Interpretation Comments POC-GLUCOSE METER 348 mg/dL 70-110 H Notified R N MD/TESTED (BEAKER) (test code = AT [address] 153) [facility] 770 0 POCT-GLUCOSE [id number] 21:07:00 Test Item Value Reference Range Interpretation Comments POC-GLUCOSE METER 387 mg/dL 70-110 H Notified R N MD/TESTED (BEAKER) (test code = AT [place] [address]) [facility] 7703 0 POCT-GLUCOSE [id number] 18:15:00 Test Item Value Reference Range Interpretation Comments POC-GLUCOSE METER 495 mg/dL 70-110 HH TESTED AT [place] [address] ([facility]) (test code = PAUL Tanner [place] [address]) [address] HEMOGLOBIN [id number] 17:06:00 Test Item Value Reference Range Interpretation Comments HEMOGLOBIN A1C (BEAKER) (test code = 12.4 % 4.3-6.1 H 368) POCT-GLUCOSE [id number] 15:56:00 Test Item Value Reference Range Interpretation Comments POC-GLUCOSE METER > mg/dL 70-110 HH OUTSIDE [place] ASURING (BEAKER) (test code RANGETES MAGDALENO AT [place] [address] = 1538) [facility] [address] RESPIRATORY PANEL [id number] 14:33:00 Test Item Value Reference Range Interpretation [...] [facility] Molecular Diagnostics Laboratory using the x.aiArray Respiratory Panel. It is FDA cleared and has been verified and approved by the [facility] Molecular Diagnostics Laboratory for clinical use on nasal swab specimens.POCT-GLUCOSE [id number] 11:59:00 Test Item Value Reference Range Interpretation Comments POC-GLUCOSE METER > mg/dL 70-110 HH OUTSIDE ME ASURING (BEAKER) (test code RANGETES MAGDALENO AT [place] [address] = 1538) [facility] [address] [id number] 08:16:00 Test Item Value Reference Range Interpretation Comments MAGNESIUM (BEAKER) (test code = 1.3 mg/dL 1.6-2.6 L 627) [id number] 08:16:00 Test Item Value Reference Range Interpretation Comments BLOOD UREA NITROGEN (BEAKER) (test 16 mg/dL 7-21 code = 354) [id number] 08:16:00 Test Item Value Reference Range Interpretation Comments CREATININE (BEAKER) 1.20 mg/dL 0.57-1.25 (test code = 358) EGFR (BEAKER) (test 66 mL/min/1.73 ESTIMA MAGDALENO GFR IS code = 1092) sq m NOT ACCURATE CREATININE CLEARANCE IN PREDICTING GLOMERULAR FILTRATION RATE . ESTIMATED GFR I S NOT APPLICABLE FOR DIALYSIS PATIEN TS. POCT-GLUCOSE [id number] 08:06:00 Test Item Value Reference Range Interpretation Comments POC-GLUCOSE METER > mg/dL 70-110 HH OUTSIDE ME ASURING (BEAKER) (test code RANGETES MAGDALENO AT [place] [address] = 1538) [facility] [address] LACTIC ACID, [id number] 07:59:00 Test Item Value Reference Range Interpretation Comments LACTATE BLOOD VENOUS (2) (BEAKER) 1.5 mmol/L 0.5-2.2 (test code = 2872) POCT-GLUCOSE [id number] 21:27:00 Test Item Value Reference Range Interpretation Comments POC-GLUCOSE METER 454 mg/dL 70-110 HH Procedure Error/TESTED (BEAKER) (test code AT [address] = 1538) [facility] 7703 0 POCT-GLUCOSE [id number] 18:12:00 Test Item Value Reference Range Interpretation Comments POC-GLUCOSE METER 121 mg/dL 70-110 H TESTED AT [place] [address] (BEAKER) (test code = PAUL Tanner [facility] 1538) [address] SCREEN, [id number] 16:18:00 Test Item Value Reference Range Interpretation Comments TEST URINE (BEAKER) (test Negative code = 583) [id number] 13:03:00 Test Item Value Reference Range Interpretation Comments PHOSPHORUS (BEAKER) 2.8 mg/dL 2.3-4.7 Specimen slightly (test code = 604) hemolyzed COMPREHENSIVE METABOLIC [id number] 13:03:00 Test Item Value Reference Range Interpretation [...] = 364) CBC W/PLT COUNT & AUTO [id number] 12:51:00 Test Item Value Reference Range Interpretation [...] PERCENT (BEAKER) (test code = 2801) POCT-GLUCOSE [id number] 12:25:00 Test Item Value Reference Range Interpretation Comments POC-GLUCOSE METER 233 mg/dL 70-110 H TESTED AT [facility] 6720 (BEAKER) (test code = [place] 1538) [address] [id number] 09:48:00 Test Item Value Reference Range Interpretation Comments MAGNESIUM (BEAKER) (test code = 0.8 mg/dL 1.6-2.6 LL 627) BASIC METABOLIC [id number] 09:47:00 Test Item Value Reference Range Interpretation [...] NOT APPLICABLE FOR DIALYSIS PATIEN TS. TROPONIN [id number] 09:34:00 Test Item Value Reference Range Interpretation [...] neurological disease, and persistent tachyarrhythmia.RAPID INFLUENZA A&B [id number] 09:32:00 Test Item Value Reference Range Interpretation Comments RAPID INFLUENZA A AG (BEAKER) Negative Negative, Inconclusive (test code = 1622) RAPID INFLUENZA B AG (BEAKER) Negative Negative, Inconclusive (test code = 1623) RAD, CHEST, 1 VIEW, NON [id number] 09:29:00Reason for exam:->COUGHReason for exam:->SHORTNESS OF BREATHIs the patient ?->NoFINAL REPORT AP chest HISTORY: Shortness of breath. COMPARISON: 01/03/2018. IMPRESSION: Chest port present. Diffuse bronchiectasis similar to previous. No superimposed acute infiltrate. Heart size within normal limits. No effusion or pneumothorax. Signed: Volodymyr Olivarez MDReportVerified Date/Time: 02/26/2019 09:29:34 Reading Location: [address] Reading Room El ectronically signed by: VOLODYMYR OLIVAREZ M.D. on 02/26/2019 09:29 AM [id number] 09:18:00 Test Item Value Reference Range Interpretation [...] (BEAKER) (test code = 2801) POCT-LACTIC ACID, [id number] 09:05:00 Test Item Value Reference Range Interpretation Comments POC-LACTIC ACID, 1.6 mmol/L 0.9-1.7 TESTED AT [place] [address] [address] ([place]) (test PAUL [place] code = 2805) [address] AFB CULTURE + [id number] 16:02:00 Test Item Value Reference Range Interpretation Comments CULTURE ([facility]) (test No acid-fast bacilli code = 1095) isolated in 42 days AFB SMEAR ([facility]) No acid fast bacilli (test code = 994) seen FUNGUS CULTURE + [id number] 18:23:00 Test Item Value Reference Range Interpretation Comments CULTURE ([facility]) A 3+ Clau (test code = 1095) lisa frank FUNGUS SMEAR No fungi seen ([facility]) (test code = 1406) POCT-GLUCOSE [id number] 21:56:00 Test Item Value Reference Range Interpretation Comments POC-GLUCOSE METER 215 mg/dL 70-110 H TESTED AT [place] [address] ([facility]) ([facility]) [address] POCT-GLUCOSE [id number] 17:25:00 Test Item Value Reference Range Interpretation Comments POC-GLUCOSE METER 214 mg/dL 70-110 H TESTED AT [place] [address] ([facility]) (test [facility] = [facility] 1538) [address] POCT-GLUCOSE [id number] 13:42:00 Test Item Value Reference Range Interpretation Comments POC-GLUCOSE METER 161 mg/dL 70-110 H TESTED AT [place] [address] ([facility]) (test code = [facility] 1538) [address] CBC W/PLT COUNT & AUTO [id number] 11:14:00 Test Item Value Reference Range Interpretation Comments WHITE BLOOD CELL COUNT (BANNER) 11.2 K/ L 3.5-10.5 H (test code = 775) RED BLOOD CELL COUNT (BANNER) 3.41 M/ L 3.93-5.22 L (test code = 761) HEMOGLOBIN (BANNER) (test code = 9.0 GM/DL 11.2-15.7 L 410) HEMATOCRIT (BANNER) (test code = 30.4 % 34.1-44.9 L [...] 0-1 PERCENT (BEAKER) (test code = 2801) [id number] 11:00:00 Test Item Value Reference Range Interpretation Comments MAGNESIUM (BEAKER) (test code = 1.1 mg/dL 1.6-2.6 L 627) COMPREHENSIVE METABOLIC [id number] 11:00:00 Test Item Value Reference Range Interpretation [...] (test code = 353) ALT (SGPT) (BEAKER) 28 U/L 6-55 (test code = 347) EGFR (BEAKER) (test 127 ESTIMATE D GFR IS code = 1092) mL/min/1.73 sq NOT ACCURA TE m CREATININE CLEARANCE IN PREDICTING GLOMERULAR FILTRATION RATE . ESTIMATED GFR I S NOT APPLICABLE FOR DIALYSIS PATIEN TS. POCT-GLUCOSE [id number] 09:18:00 Test Item Value Reference Range Interpretation Comments POC-GLUCOSE METER 161 mg/dL 70-110 H TESTED AT [place] [address] (BANNER) (test code = [facility] [place] 1538) [address] POCT-GLUCOSE [id number] 22:02:00 Test Item Value Reference Range Interpretation Comments POC-GLUCOSE METER 252 mg/dL 70-110 H TESTED AT [place] [id number] (BANNER) (test code = [facility] [place] 1538) [address] POCT-GLUCOSE [id number] 17:39:00 Test Item Value Reference Range Interpretation Comments POC-GLUCOSE METER 317 mg/dL 70-110 H TESTED AT [place] [address] (BANNER) (test code = [facility] 1538) 39053 POCT-GLUCOSE [id number] 12:53:00 Test Item Value Reference Range Interpretation Comments POC-GLUCOSE METER 230 mg/dL 70-110 H TESTED AT [place] [address] (BANNER) (test code = [facility] 1538) 48696 POCT-GLUCOSE [id number] 10:09:00 Test Item Value Reference Range Interpretation Comments POC-GLUCOSE METER 242 mg/dL 70-110 H TESTED AT [place] [address] (BANNER) (test code = [facility] 1538) [address] POCT-GLUCOSE [id number] 09:36:00 Test Item Value Reference Range Interpretation Comments POC-GLUCOSE METER 53 mg/dL 70-110 L TESTED AT [place] [address] (BANNER) (test code = [facility] [address] 1538) POCT-GLUCOSE [id number] 22:29:00 Test Item Value Reference Range Interpretation Comments POC-GLUCOSE METER 197 mg/dL 70-110 H TESTED AT [place] [address] (BANNER) (test code = [facility] 1538) 69387 POCT-GLUCOSE [id number] 17:51:00 Test Item Value Reference Range Interpretation Comments POC-GLUCOSE METER 292 mg/dL 70-110 H TESTED AT [place] [address] (BANNER) (test code = [facility] 1538) 70[address] B-TYPE NATRIURETIC FACTOR (BNP)[id number] 17:20:00 Test Item Value Reference Range Interpretation Comments B-TYPE NATRIURETIC PEPTIDE (BANNER) 119 pg/mL 0-100 H (test code = 700) [id number] 17:16:00 Test Item Value Reference Range Interpretation Comments MAGNESIUM (BANNER) (test code = 1.0 mg/dL 1.6-2.6 LL 627) POCT-GLUCOSE [id number] 13:12:00 Test Item Value Reference Range Interpretation Comments POC-GLUCOSE METER 266 mg/dL 70-110 H TESTED AT [place] [address] (BANNER) (test code = [facility] 1538) 424[address] COMPREHENSIVE METABOLIC [id number] 09:09:00 Test Item Value Reference Range Interpretation [...] S NOT APPLICABLE FOR DIALYSIS PATIEN TS. [id number] 09:02:00 Test Item Value Reference Range Interpretation Comments MAGNESIUM (BEAKER) (test code = 1.4 mg/dL 1.6-2.6 L 627) CBC W/PLT COUNT & AUTO [id number] 07:56:00 Test Item Value Reference Range Interpretation [...] PERCENT (BEAKER) (test code = 2801) POCT-GLUCOSE [id number] 07:53:00 Test Item Value Reference Range Interpretation Comments POC-GLUCOSE METER 151 mg/dL 70-110 H TESTED AT [facility] 6720 (BEAKER) (test code = [place] 1538) [address] [id number] 23:34:00 Test Item Value Reference Range Interpretation Comments MAGNESIUM (BEAKER) (test code = 2.0 mg/dL 1.6-2.6 627) POCT-GLUCOSE [id number] 21:32:00 Test Item Value Reference Range Interpretation Comments POC-GLUCOSE METER 225 mg/dL 70-110 H TESTED AT [facility] 6720 (BEAKER) (test code = [place] 1538) [address] POCT-GLUCOSE [id number] 17:27:00 Test Item Value Reference Range Interpretation Comments POC-GLUCOSE METER 209 mg/dL 70-110 H TESTED AT [facility] 6720 (BEAKER) (test code = [place] 1538) [address] POCT-GLUCOSE [id number] 12:13:00 Test Item Value Reference Range Interpretation Comments POC-GLUCOSE METER 181 mg/dL 70-110 H TESTED AT [facility] 6720 (BEAKER) (test code = [place] 1538) [address] [id number] 09:28:00 Test Item Value Reference Range Interpretation Comments MAGNESIUM (BEAKER) (test code = 1.7 mg/dL 1.6-2.6 627) COMPREHENSIVE METABOLIC [id number] 09:28:00 Test Item Value Reference Range Interpretation [...] PATIEN TS. CBC W/PLT COUNT & AUTO [id number] 09:02:00 Test Item Value Reference Range Interpretation [...] PERCENT (BEAKER) (test code = 2801) POCT-GLUCOSE [id number] 08:10:00 Test Item Value Reference Range Interpretation Comments POC-GLUCOSE METER 99 mg/dL 70-110 TESTED AT [place] [address] ([facility]) (test code = [place] [address] 1538) POCT-GLUCOSE [id number] 21:12:00 Test Item Value Reference Range Interpretation Comments POC-GLUCOSE METER 341 mg/dL 70-110 H Notified Ciro Polanco MD/TESTED (BEAKER) (test code = AT [address] 1538) [facility] 7703 0 POCT-GLUCOSE [id number] 17:38:00 Test Item Value Reference Range Interpretation Comments POC-GLUCOSE METER 403 mg/dL 70-110 HH Notified Ciro Polanco MD/TESTED (BEAKER) (test code = AT [address] 1538) [facility] 7703 0 BLOOD GAS, [id number] 12:53:00 Test Item Value Reference Range Interpretation [...] (test code = 1819) 100.0 % POCT-GLUCOSE [id number] 12:00:00 Test Item Value Reference Range Interpretation Comments POC-GLUCOSE METER 274 mg/dL 70-110 H TESTED AT [facility] 6720 (BEAKER) (test code = [place] 1538) [address] [id number] 11:20:00 Test Item Value Reference Range Interpretation Comments MAGNESIUM (BEAKER) (test code = 1.3 mg/dL 1.6-2.6 L 627) COMPREHENSIVE METABOLIC [id number] 11:20:00 Test Item Value Reference Range Interpretation [...] PATIEN TS. CBC W/PLT COUNT & AUTO [id number] 10:42:00 Test Item Value Reference Range Interpretation [...] PERCENT (BEAKER) (test code = 2801) POCT-GLUCOSE [id number] 08:13:00 Test Item Value Reference Range Interpretation Comments POC-GLUCOSE METER 135 mg/dL 70-110 H TESTED AT [place] [id number] (BEAKER) (test code = [place] 1538) [address] POCT-GLUCOSE [id number] 21:28:00 Test Item Value Reference Range Interpretation Comments POC-GLUCOSE METER 175 mg/dL 70-110 H TESTED AT [place] [id number] (BEAKER) (test code = [place] 1538) [address] BLOOD GAS, [id number] 18:33:00 Test Item Value Reference Range Interpretation [...] (test code = 1819) 32.0 % POCT-GLUCOSE [id number] 18:31:00 Test Item Value Reference Range Interpretation Comments POC-GLUCOSE METER 349 mg/dL 70-110 H Notified R Collin STAPLETON/TESTED (BEAKER) (test code = AT [facility] 67[address] [place] 1538) [place] [address] [id number] 16:27:00 Test Item Value Reference Range Interpretation Comments MAGNESIUM (BEAKER) 2.8 mg/dL 1.6-2.6 H Specimen slightly (test code = 627) hemolyzed POCT-GLUCOSE [id number] 09:09:00 Test Item Value Reference Range Interpretation Comments POC-GLUCOSE METER 81 mg/dL 70-110 TESTED AT [facility] 6720 (BEAKER) (test code = [place] [address] 1538) [id number] 07:26:00 Test Item Value Reference Range Interpretation Comments MAGNESIUM (BEAKER) (test code = 1.4 mg/dL 1.6-2.6 L 627) COMPREHENSIVE METABOLIC [id number] 07:26:00 Test Item Value Reference Range Interpretation [...] PATIEN TS. CBC W/PLT COUNT & AUTO [id number] 07:00:00 Test Item Value Reference Range Interpretation [...] PERCENT (BEAKER) (test code = 2801) POCT-GLUCOSE [id number] 22:03:00 Test Item Value Reference Range Interpretation Comments POC-GLUCOSE METER 228 mg/dL 70-110 H TESTED AT [facility] 6720 (BEAKER) (test code = [facility] Ciro [facility] 1538) [address] POCT-GLUCOSE [id number] 18:34:00 Test Item Value Reference Range Interpretation Comments POC-GLUCOSE METER 77 mg/dL 70-110 TESTED AT [place] [id number] (BANNER) (test code = [facility] [address] 1538) BLOOD GAS, [id number] 14:42:00 Test Item Value Reference Range Interpretation [...] code = 1819) 32.0 % CF RESPIRATORY [id number] 12:12:00 Test Item Value Reference Range Interpretation [...] = 25) Resistant <0 or >4 CULTURE (BANNER) PSEUDOMONAS A 1+ Pseudomo viki (test code [...] or >4 3+ Normal respiratory derick presentPOCT-GLUCOSE [id number] 11:59:00 Test Item Value Reference Range Interpretation Comments POC-GLUCOSE METER 268 mg/dL 70-110 H TESTED AT [facility] 6720 (BANNER) (test code = [place] 1538) [address] POCT-GLUCOSE [id number] 08:26:00 Test Item Value Reference Range Interpretation Comments POC-GLUCOSE METER 362 mg/dL 70-110 H TESTED AT [facility] 6720 (BEAKER) (test code = [place] 1538) [address] [id number] 08:26:00 Test Item Value Reference Range Interpretation Comments MAGNESIUM (BEAKER) (test code = 1.5 mg/dL 1.6-2.6 L 627) COMPREHENSIVE METABOLIC [id number] 08:26:00 Test Item Value Reference Range Interpretation Comments TOTAL PROTEIN 7.0 gm/dL 6.0-8.3 (BEAKER) (test code = 770) ALBUMIN (BEAKER) 2.5 g/dL 3.5-5.0 L (test code = 1145) ALKALINE PHOSPHATASE 108 U/L 40-150 (BEAKER) (test code = 346) [...] PATIEN TS. CBC W/PLT COUNT & AUTO [id number] 07:13:00 Test Item Value Reference Range Interpretation [...] PERCENT (BEAKER) (test code = 2801) POCT-GLUCOSE [id number] 21:49:00 Test Item Value Reference Range Interpretation Comments POC-GLUCOSE METER 225 mg/dL 70-110 H TESTED AT [place] [address] ([facility]) (test code = [place] 1538) [address] POCT-GLUCOSE [id number] 16:47:00 Test Item Value Reference Range Interpretation Comments POC-GLUCOSE METER 367 mg/dL 70-110 H TESTED AT [place] [address] (BANNER) (test code = [place] T[facility] 1538) 64797 POCT-GLUCOSE [id number] 13:10:00 Test Item Value Reference Range Interpretation Comments POC-GLUCOSE METER 446 mg/dL 70-110 HH Procedure Error/TESTED (BANNER) (test code AT [place] [address] BERTNER = 1538) [facility] 7703 0 POCT-GLUCOSE [id number] 08:29:00 Test Item Value Reference Range Interpretation Comments POC-GLUCOSE METER 221 mg/dL 70-110 H TESTED AT [place] [address] (BANNER) (test code = [facility] Ciro [facility] 1538) [address] [id number] 05:57:00 Test Item Value Reference Range Interpretation Comments MAGNESIUM (BEAKER) (test code = 1.0 mg/dL 1.6-2.6 LL 627) COMPREHENSIVE METABOLIC [id number] 05:11:00 Test Item Value Reference Range Interpretation [...] APPLICABLE FOR DIALYSIS PATIEN TS. LACTIC ACID, [id number] 04:59:00 Test Item Value Reference Range Interpretation Comments LACTATE BLOOD VENOUS (2) (BEAKER) 1.9 mmol/L 0.5-2.2 (test code = 2872) CBC W/PLT COUNT & AUTO [id number] 04:47:00 Test Item Value Reference Range Interpretation [...] PERCENT (BEAKER) (test code = 2801) POCT-GLUCOSE [id number] 22:50:00 Test Item Value Reference Range Interpretation Comments POC-GLUCOSE METER 338 mg/dL 70-110 H TESTED AT [place] [address] (BEAKER) (test code = [facility] 1538) 11125 POCT-GLUCOSE [id number] 18:35:00 Test Item Value Reference Range Interpretation Comments POC-GLUCOSE METER 177 mg/dL 70-110 H TESTED AT [place] [address] ([facility]) (test code = [facility] 1538) 25137 BASIC METABOLIC [id number] 15:04:00 Test Item Value Reference Range Interpretation [...] PATIEN TS. CBC W/PLT COUNT & AUTO [id number] 15:00:00 Test Item Value Reference Range Interpretation [...] PERCENT (BEAKER) (test code = 2801) POCT-GLUCOSE [id number] 12:20:00 Test Item Value Reference Range Interpretation Comments POC-GLUCOSE METER 275 mg/dL 70-110 H TESTED AT [place] [address] ([facility]) (test code = [facility] 1538) [address] BLOOD [id number] 02:00:00 Test Item Value Reference Range Interpretation Comments CULTURE (BEAKER) (test No growth in 5 days code = 1095) POCT-GLUCOSE [id number] 22:34:00 Test Item Value Reference Range Interpretation Comments POC-GLUCOSE METER 339 mg/dL 70-110 H TESTED AT [place] [address] (BEAKER) (test code = [facility] 1538) [address]69 BLOOD [id number] 20:01:00 Test Item Value Reference Range Interpretation Comments CULTURE (BEAKER) (test No growth in 5 days code = 1095) POCT-GLUCOSE [id number] 19:07:00 Test Item Value Reference Range Interpretation Comments POC-GLUCOSE METER 296 mg/dL 70-110 H TESTED AT [place] [address] (BEAKER) (test code = [facility] 1538) [address]44 POCT-GLUCOSE [id number] 12:53:00 Test Item Value Reference Range Interpretation Comments POC-GLUCOSE METER 104 mg/dL 70-110 TESTED AT [place] [address] ([facility]) (test code = [facility] 1538) [address] POCT-GLUCOSE [id number] 09:10:00 Test Item Value Reference Range Interpretation Comments POC-GLUCOSE METER 348 mg/dL 70-110 H Notified R Collin MD/TESTED (BEAKER) (test code = AT [facility] 6720 [facility] 1538) [facility] 7703 0 POCT-GLUCOSE [id number] 21:35:00 Test Item Value Reference Range Interpretation Comments POC-GLUCOSE METER 209 mg/dL 70-110 H TESTED AT [facility] 6720 (BEAKER) (test code = [facility] R [facility] 1538) 40060 BASIC METABOLIC [id number] 18:44:00 Test Item Value Reference Range Interpretation [...] PATIEN TS. CBC W/PLT COUNT & AUTO [id number] 18:10:00 Test Item Value Reference Range Interpretation [...] PERCENT (BEAKER) (test code = 2801) POCT-GLUCOSE [id number] 17:13:00 Test Item Value Reference Range Interpretation Comments POC-GLUCOSE METER 132 mg/dL 70-110 H TESTED AT [facility] 6720 (BEAKER) (test code = [place] 1538) [address] POCT-GLUCOSE [id number] 12:52:00 Test Item Value Reference Range Interpretation Comments POC-GLUCOSE METER 145 mg/dL 70-110 H TESTED AT [facility] 6720 (BEAKER) (test code = [place] 1538) [address] SPIN/CONCENTRATION [id number] 12:12:00 Test Item Value Reference Range Interpretation Comments CONCENTRATION CHARGED (BANNER) (test Done code = 2657) POCT-GLUCOSE [id number] 09:13:00 Test Item Value Reference Range Interpretation Comments POC-GLUCOSE METER 267 mg/dL 70-110 H TESTED AT [place] [address] (BANNER) (test code = [place] 1538) 93772 POCT-GLUCOSE [id number] 21:53:00 Test Item Value Reference Range Interpretation Comments POC-GLUCOSE METER 233 mg/dL 70-110 H TESTED AT [place] [address] (BANNER) (test code = [facility] 1538) 74372 POCT-GLUCOSE [id number] 17:55:00 Test Item Value Reference Range Interpretation Comments POC-GLUCOSE METER 202 mg/dL 70-110 H TESTED AT [place] [address] (BANNER) (test code = [facility] 1538) 39067 POCT-GLUCOSE [id number] 13:25:00 Test Item Value Reference Range Interpretation Comments POC-GLUCOSE METER 184 mg/dL 70-110 H TESTED AT [place] [address] (BANNER) (test code = [facility] 1538) [address]39 POCT-GLUCOSE [id number] 11:30:00 Test Item Value Reference Range Interpretation Comments POC-GLUCOSE METER 50 mg/dL 70-110 L Notified R Collin STAPLETON/TESTED AT (BANNER) (test code = [place] [address] [place] 1538) [facility] 7703 0 POCT-GLUCOSE [id number] 08:52:00 Test Item Value Reference Range Interpretation Comments POC-GLUCOSE METER 52 mg/dL 70-110 L Notified R Collin STAPLETON/TESTED AT (BANNER) (test code = [place] [address] [place] 1538) [facility] 7703 0 BASIC METABOLIC [id number] 04:53:00 Test Item Value Reference Range Interpretation [...] APPLICABLE FOR DIALYSIS PATIEN TS. LACTIC ACID, [id number] 04:32:00 Test Item Value Reference Range Interpretation Comments LACTATE BLOOD VENOUS (2) (BEAKER) 1.0 mmol/L 0.5-2.2 (test code = 2872) RAD, ABDOMEN/KUB, 1 VIEW [id number] 23:28:00Reason for exam:->Abdominal painShould this be performed [...] MDReport Verified Date/Time: 01/05/2019 23:28:04 Reading Location: [facility] B1 [id number] Consult Reading Room El ectronically signed by: ARIANA YOUNGBLOOD M.D. on 01/05/2019 11:28 PMPOCT-GLUCOSE [id number] 23:26:00 Test Item Value Reference Range Interpretation Comments POC-GLUCOSE METER 251 mg/dL 70-110 H TESTED AT [facility] 6720 (BEAKER) (test code = [place] 1538) [address] POCT-GLUCOSE [id number] 19:25:00 Test Item Value Reference Range Interpretation Comments POC-GLUCOSE METER 296 mg/dL 70-110 H TESTED AT [facility] 6720 (BEAKER) (test code = [facility] 1538) [address] BASIC METABOLIC [id number] 13:27:00 Test Item Value Reference Range Interpretation [...] S NOT APPLICABLE FOR DIALYSIS PATIEN TS. [id number] 13:02:00 Test Item Value Reference Range Interpretation Comments LIPASE (BEAKER) (test code = 749) 4 U/L 8-78 L POCT-GLUCOSE [id number] 12:55:00 Test Item Value Reference Range Interpretation Comments POC-GLUCOSE METER 340 mg/dL 70-110 H Notified R Collin STAPLETON/TESTED (BEAKER) (test code = AT [place] [address]448) [facility] 7703 0 HEMOGLOBIN [id number] 09:59:00 Test Item Value Reference Range Interpretation Comments HEMOGLOBIN A1C (BEAKER) (test code = 10.5 % 4.3-6.1 H 368) POCT-GLUCOSE [id number] 08:28:00 Test Item Value Reference Range Interpretation Comments POC-GLUCOSE METER 336 mg/dL 70-110 H Notified R Collin STAPLETON/TESTED (BEAKER) (test code = AT [place] 069448) [facility] 7703 0 [id number] 06:56:00 Test Item Value Reference Range Interpretation Comments BLOOD UREA NITROGEN (BEAKER) (test 10 mg/dL 7-21 code = 354) [id number] 06:56:00 Test Item Value Reference Range Interpretation Comments CREATININE (BEAKER) 0.96 mg/dL 0.57-1.25 (test code = 358) EGFR (BEAKER) (test 85 mL/min/1.73 ESTIMA MAGDALENO GFR IS code = 1092) sq m NOT ACCURATE CREATININE CLEARANCE IN PREDICTING GLOMERULAR FILTRATION RATE . ESTIMATED GFR I S NOT APPLICABLE FOR DIALYSIS PATIEN TS. POCT-GLUCOSE [id number] 06:30:00 Test Item Value Reference Range Interpretation Comments POC-GLUCOSE METER 357 mg/dL 70-110 H TESTED AT [place] [address] (BANNER) (test code = [facility] 1538) [address]21 LACTIC ACID, [id number] 05:51:00 Test Item Value Reference Range Interpretation Comments LACTATE BLOOD VENOUS (2) (BANNER) 2.1 mmol/L 0.5-2.2 (test code = 2872) SCREEN, [id number] 04:22:00 Test Item Value Reference Range Interpretation Comments TEST URINE (BANNER) (test Negative code = 583) POCT-GLUCOSE [id number] 03:11:00 Test Item Value Reference Range Interpretation Comments POC-GLUCOSE METER 403 mg/dL 70-110 HH TESTED AT [place] [address] (BANNER) (test code = [facility] 1538) [address] POCT-GLUCOSE [id number] 00:43:00 Test Item Value Reference Range Interpretation Comments POC-GLUCOSE METER 430 mg/dL 70-110 HH TESTED AT [place] [address] (BANNER) (test code = [facility] 1538) 30774 BASIC METABOLIC [id number] 22:43:00 Test Item Value Reference Range Interpretation [...] NOT APPLICABLE FOR DIALYSIS PATIEN TS. POCT-GLUCOSE [id number] 22:42:00 Test Item Value Reference Range Interpretation Comments POC-GLUCOSE METER > mg/dL 70-110 HH OUTSIDE ME ASURING (BEAKER) (test code RANGENot ified JORDON STAPLETON/TESTED = 1538) AT [facility] [address] [facility] 7703 0 GLUCOSE-STAT [id number] 20:33:00 Test Item Value Reference Range Interpretation Comments GLUCOSE RANDOM (BEAKER) (test code 580 mg/dL 70-110 HH = 652) [id number] 19:57:00 Test Item Value Reference Range Interpretation Comments MAGNESIUM (BEAKER) (test code = 1.6 mg/dL 1.6-2.6 627) [id number] 19:57:00 Test Item Value Reference Range Interpretation Comments BLOOD UREA NITROGEN (BEAKER) (test 10 mg/dL 7-21 code = 354) [id number] 19:57:00 Test Item Value Reference Range Interpretation Comments CREATININE (BEAKER) 1.25 mg/dL 0.57-1.25 (test code = 358) EGFR (BEAKER) (test 63 mL/min/1.73 ESTIMA MAGDALENO GFR IS code = 1092) sq m NOT ACCURATE CREATININE CLEARANCE IN PREDICTING GLOMERULAR FILTRATION RATE . ESTIMATED GFR I S NOT APPLICABLE FOR DIALYSIS PATIEN TS. POCT-GLUCOSE [id number] 15:07:00 Test Item Value Reference Range Interpretation Comments POC-GLUCOSE METER 466 mg/dL 70-110 HH TESTED AT [facility] 6720 ([facility]) (test code = [place] 1538) [address] RESPIRATORY PANEL [id number] 14:21:00 Test Item Value Reference Range Interpretation [...] [facility] Molecular Diagnostics Laboratory using the [employer] FilmArray Respiratory Panel. It is FDA cleared [...] laboratory is CLIA- certified and [employer] (CAP)-accredited to perform high complexity testing.POCT-GLUCOSE [id number] 08:29:00 Test Item Value Reference Range Interpretation Comments POC-GLUCOSE METER 368 mg/dL 70-110 H Notified Ciro Polanco MD/TESTED (BANNER) (test code = AT [facility] [address] [place] 1538) [facility] 7703 0 POCT-GLUCOSE [id number] 00:18:00 Test Item Value Reference Range Interpretation Comments POC-GLUCOSE METER 218 mg/dL 70-110 H TESTED AT [place] [address] (BANNER) (test code = [place] [address]) [address] RAPID INFLUENZA A&B [id number] 19:46:00 Test Item Value Reference Range Interpretation Comments RAPID INFLUENZA A AG (GiniAKER) Negative Negative, Inconclusive (test code = 1622) RAPID INFLUENZA B AG (BEAKER) Negative Negative, Inconclusive (test code = 1623) RAD, CHEST, 1 VIEW, NON [id number] 19:27:00Reason for exam:->CHEST PAINShould this be performed at the bedside?->YesFINAL REPORT INDICATION: CHEST PAIN COMPARISON:November 08, 2018 TECHNIQUE: Chest radiograph, single view, portable technique. FINDINGS / IMPRESSION: Upper lung bronchiectasis andfaint opacities suggesting cystic fibrosis. No discrete new parenchymal opacity that would indicate new infection. Right chest port terminates at the cavoatrial junction. Signed: Debbie Enriquezeport Verified Date/Time: 01/03/2019 19:27:38 Reading Location: [address] Consult Reading Room POCT-LACTIC ACID, [id number] 19:05:00 Test Item Value Reference Range Interpretation Comments POC-LACTIC ACID, 0.9 mmol/L 0.9-1.7 TESTED AT [facility] [address] (BEAKER) (test PAUL MEDINA [place] code = 2805) [address] [id number] 18:00:00 Test Item Value Reference Range Interpretation Comments MAGNESIUM (BEAKER) (test code = 1.0 mg/dL 1.6-2.6 LL 627) BASIC METABOLIC [id number] 17:50:00 Test Item Value Reference Range Interpretation [...] APPLICABLE FOR DIALYSIS PATIEN TS. HEPATIC FUNCTION [id number] 17:50:00 Test Item Value Reference Range Interpretation [...] 6-55 347) CBC W/PLT COUNT & AUTO [id number] 17:39:00 Test Item Value Reference Range Interpretation [...] (test code = 2801) AFB CULTURE + [id number] 12:53:00 Test Item Value Reference Range Interpretation Comments CULTURE (BEAKER) (test No acid-fast bacilli code = 1095) isolated in 42 days AFB SMEAR (BEAKER) No acid fast bacilli (test code = 994) seen FUNGUS CULTURE + [id number] 18:00:00 Test Item Value Reference Range Interpretation Comments CULTURE (BEAKER) (test No fungus isolated in code = 1095) 28 days FUNGUS SMEAR (BEAKER) No fungi seen (test code = 1406) POCT-GLUCOSE [id number] 12:41:00 Test Item Value Reference Range Interpretation Comments POC-GLUCOSE METER 59 mg/dL 70-110 L Notified R Collin STAPLETON/TESTED AT (BEAKER) (test code = [facility] [address] 1538) [facility] 7703 0 POCT-GLUCOSE [id number] 08:51:00 Test Item Value Reference Range Interpretation Comments POC-GLUCOSE METER 461 mg/dL 70-110 HH Notified R Collin MD/TESTED (BEAKER) (test code = AT [facility] [address] 1538) [facility] 7[address] 0 [id number] 06:03:00 Test Item Value Reference Range Interpretation Comments PHOSPHORUS (BEAKER) (test code = 3.7 mg/dL 2.3-4.7 604) [id number] 06:03:00 Test Item Value Reference Range Interpretation Comments MAGNESIUM (BEAKER) (test code = 1.6 mg/dL 1.6-2.6 627) BASIC METABOLIC [id number] 06:03:00 Test Item Value Reference Range Interpretation Comments SODIUM (BEAKER) 134 meq/L 136-145 L (test code = 381) POTASSIUM (BEAKER) 4.5 meq/L 3.5-5.1 (test code = 379) CHLORIDE (BEAKER) 97 meq/L 98-107 L (test code = 382) CO2 ([facility]) (test 33 meq/L 22-29 H code = 355) BLOOD UREA NITROGEN 28 mg/dL 7-21 H (BANNER) (test code = 354) CREATININE (BEAKER) 0.73 mg/dL 0.57-1.25 (test code = 358) GLUCOSE RANDOM 285 mg/dL 70-105 H (BANNER) (test code = 652) CALCIUM (BEAKER) 8.4 mg/dL 8.4-10.2 (test code = 697) EGFR (BANNER) (test 117 mL/min/1.73 ESTIM ATED GFR IS code = 1092) sq m NOT ACCURATE CREATININE CLEARANCE IN PREDICTING GLOMERULAR FILTRATION RATE . ESTIMATED GFR I S NOT APPLICABLE FOR DIALYSIS PATIEN TS. POCT-GLUCOSE [id number] 21:37:00 Test Item Value Reference Range Interpretation Comments POC-GLUCOSE METER 207 mg/dL 70-110 H TESTED AT [place] [address] (BANNER) ([facility] 1538) [address] POCT-GLUCOSE [id number] 18:28:00 Test Item Value Reference Range Interpretation Comments POC-GLUCOSE METER 207 mg/dL 70-110 H TESTED AT [place] [address] (BANNER) (test code = [facility] Ciro [facility] 1538) [address] POCT-GLUCOSE [id number] 12:15:00 Test Item Value Reference Range Interpretation Comments POC-GLUCOSE METER 91 mg/dL 70-110 TESTED AT [place] [address] (BANNER) (test code = [facility] C[facility] [address] 1538) POCT-GLUCOSE [id number] 08:38:00 Test Item Value Reference Range Interpretation Comments POC-GLUCOSE METER 189 mg/dL 70-110 H TESTED AT [place] [address] (BANNER) (test code = [facility] 1538) [address] [id number] 05:25:00 Test Item Value Reference Range Interpretation Comments PHOSPHORUS (BEAKER) (test code = 4.0 mg/dL 2.3-4.7 604) [id number] 05:25:00 Test Item Value Reference Range Interpretation Comments MAGNESIUM (BEAKER) (test code = 1.4 mg/dL 1.6-2.6 L 627) BASIC METABOLIC [id number] 05:25:00 Test Item Value Reference Range Interpretation [...] NOT APPLICABLE FOR DIALYSIS PATIEN TS. POCT-GLUCOSE [id number] 21:35:00 Test Item Value Reference Range Interpretation Comments POC-GLUCOSE METER 170 mg/dL 70-110 H TESTED AT [facility] 6720 (BANNER) (test code = [facility] 1538) [address] POCT-GLUCOSE [id number] 18:20:00 Test Item Value Reference Range Interpretation Comments POC-GLUCOSE METER 276 mg/dL 70-110 H TESTED AT [facility] 6720 (BANNER) (test code = [facility] 1538) [address] RAD, ABDOMEN/KUB, 1 VIEW [id number] 15:00:00Reason for exam:->Abd distensionShould this be performed [...] the colon. Nonspecific abdomen exam. Signed: Sravanthi Floreseport Verified Date/Time: 0 11/16/2018 15:00:01 Reading Location: [facility] C0W Consult Reading Room POCT-GLUCOSE [id number] 13:21:00 Test Item Value Reference Range Interpretation Comments POC-GLUCOSE METER 108 mg/dL 70-110 TESTED AT [facility] 6720 (BEAKER) (test code = [facility] [place] 1538) [address] BASIC METABOLIC [id number] 08:06:00 Test Item Value Reference Range Interpretation [...] S NOT APPLICABLE FOR DIALYSIS PATIEN TS. [id number] 08:03:00 Test Item Value Reference Range Interpretation Comments PHOSPHORUS (BEAKER) (test code = 3.2 mg/dL 2.3-4.7 604) [id number] 08:03:00 Test Item Value Reference Range Interpretation Comments MAGNESIUM (BEAKER) (test code = 1.1 mg/dL 1.6-2.6 L 627) HEPATIC FUNCTION [id number] 08:03:00 Test Item Value Reference Range Interpretation [...] = 29 U/L 5-34 353) ALT (SGPT) ([facility]) (test code = 35 U/L 6-55 347) POCT-GLUCOSE [id number] 02:11:00 Test Item Value Reference Range Interpretation Comments POC-GLUCOSE METER 171 mg/dL 70-110 H TESTED AT [place] [address] (BANNER) (test code = [facility] [place] 1538) [address] POCT-GLUCOSE [id number] 22:03:00 Test Item Value Reference Range Interpretation Comments POC-GLUCOSE METER 264 mg/dL 70-110 H TESTED AT [place] [address] (BANNER) (test code = [facility] [place] 1538) [address] POCT-GLUCOSE [id number] 18:03:00 Test Item Value Reference Range Interpretation Comments POC-GLUCOSE METER 293 mg/dL 70-110 H TESTED AT [place] [address] (BANNER) (test code = [facility] [place] 1538) [address] POCT-GLUCOSE [id number] 12:27:00 Test Item Value Reference Range Interpretation Comments POC-GLUCOSE METER 125 mg/dL 70-110 H TESTED AT [place] [address] (BANNER) (test code = [facility] [place] 1538) [address] POCT-GLUCOSE [id number] 08:21:00 Test Item Value Reference Range Interpretation Comments POC-GLUCOSE METER 180 mg/dL 70-110 H TESTED AT [place] [address] (BANNER) (test code = [facility] [place] 1538) [address] [id number] 07:20:00 Test Item Value Reference Range Interpretation Comments BLOOD UREA NITROGEN (BEAKER) (test 18 mg/dL 7-21 code = 354) [id number] 07:20:00 Test Item Value Reference Range Interpretation Comments CREATININE (BEAKER) 0.72 mg/dL 0.57-1.25 Specimen slightly (test code = 358) hemolyzed EGFR (BEAKER) (test 119 mL/min/1.73 ESTIM ATED GFR IS code = 1092) sq m NOT ACCURATE CREATININE CLEARANCE IN PREDICTING GLOMERULAR FILTRATION RATE . ESTIMATED GFR I S NOT APPLICABLE FOR DIALYSIS PATIEN TS. CBC W/PLT COUNT & AUTO [id number] 07:03:00 Test Item Value Reference Range Interpretation [...] 417) IMMATURE GRANULOCYTES-RELATIVE 1 % 0-1 PERCENT (BANNER) (test code = 2801) POCT-GLUCOSE [id number] 02:14:00 Test Item Value Reference Range Interpretation Comments POC-GLUCOSE METER 239 mg/dL 70-110 H TESTED AT [place] [address] (BANNER) (test code = PA[facility] T[facility] 1538) [address] POCT-GLUCOSE [id number] 21:33:00 Test Item Value Reference Range Interpretation Comments POC-GLUCOSE METER 108 mg/dL 70-110 TESTED AT [place] [address] (BANNER) (test code = PAUL Tanner [facility] 1538) [address] POCT-GLUCOSE [id number] 17:52:00 Test Item Value Reference Range Interpretation Comments POC-GLUCOSE METER 101 mg/dL 70-110 TESTED AT [place] [address] (BANNER) (test code = PA[facility] T[facility] 1538) [address] POCT-GLUCOSE [id number] 13:35:00 Test Item Value Reference Range Interpretation Comments POC-GLUCOSE METER 308 mg/dL 70-110 H Notified Ciro Polanco MD/TESTED (BANNER) (test code = AT [facility] [address] [address]) [facility] 7[address] 0 U/S, ABDOMINAL, [id number] 12:38:00Abdomen limited area? Add comment if clarification [...] MDReport Verified Date/Time: 11/14/2018 12:38:57 Reading Location: [address] Ultrasound Reading Room [facility] RESPIRATORY [id number] 11:57:00 Test Item Value Reference Range Interpretation [...] or >4 1+ Normal respiratory derick presentPOCT-GLUCOSE [id number] 09:19:00 Test Item Value Reference Range Interpretation Comments POC-GLUCOSE METER 385 mg/dL 70-110 H Notified R Collin STAPLETON/TESTED ([employer]) (test code = AT [facility] [address] [address]) [facility] 7703 0 COMPREHENSIVE METABOLIC [id number] 08:26:00 Test Item Value Reference Range Interpretation Comments TOTAL PROTEIN 6.7 gm/dL 6.0-8.3 (REES46) (test code = 770) ALBUMIN (AKER) 2.6 g/dL 3.5-5.0 L (test code = [...] (test code = 347) EGFR (BEAKER) (test 115 ESTIMATE D GFR IS code = 1092) mL/min/1.73 sq NOT ACCURA TE m CREATININE CLEARANCE IN PREDICTING GLOMERULAR FILTRATION RATE . ESTIMATED GFR I S NOT APPLICABLE FOR DIALYSIS PATIEN TS. POCT-GLUCOSE [id number] 02:51:00 Test Item Value Reference Range Interpretation Comments POC-GLUCOSE METER 353 mg/dL 70-110 H Notified R Collin STAPLETON/TESTED (SIMI) (test code = AT [facility] [address] [place] [address]) [facility] 7703 0 SCREEN, [id number] 22:52:00 Test Item Value Reference Range Interpretation Comments TEST URINE (BEAKER) (test Negative code = 583) POCT-GLUCOSE [id number] 21:27:00 Test Item Value Reference Range Interpretation Comments POC-GLUCOSE METER 221 mg/dL 70-110 H TESTED AT [facility] 6720 (BANNER) (test code = PA[facility] T[facility] 1538) [address] POCT-GLUCOSE [id number] 19:14:00 Test Item Value Reference Range Interpretation Comments POC-GLUCOSE METER 60 mg/dL 70-110 L Notified R Collin STAPLETON/TESTED AT (BANNER) (test code = [place] [address] [place] 1538) [facility] 7703 0 POCT-GLUCOSE [id number] 12:58:00 Test Item Value Reference Range Interpretation Comments POC-GLUCOSE METER 327 mg/dL 70-110 H TESTED AT [place] [address] (BANNER) (test code = [facility] 1538) [address] POCT-GLUCOSE [id number] 08:13:00 Test Item Value Reference Range Interpretation Comments POC-GLUCOSE METER 372 mg/dL 70-110 H TESTED AT [place] [address] (BANNER) (test code = [facility] 1538) [address] [id number] 05:57:00 Test Item Value Reference Range Interpretation Comments BLOOD UREA NITROGEN (BANNER) (test 14 mg/dL 05-14 code = 354) [id number] 05:57:00 Test Item Value Reference Range Interpretation Comments CREATININE (BANNER) 0.72 mg/dL 0.57-1.25 (test code = 358) EGFR (BANNER) (test 119 mL/min/1.73 ESTIM ATED GFR IS code = 1092) sq m NOT ACCURATE CREATININE CLEARANCE IN PREDICTING GLOMERULAR FILTRATION RATE . ESTIMATED GFR I S NOT APPLICABLE FOR DIALYSIS PATIEN TS. POCT-GLUCOSE [id number] 01:39:00 Test Item Value Reference Range Interpretation Comments POC-GLUCOSE METER 267 mg/dL 70-110 H TESTED AT [place] [address] (BANNER) (test code = PA[facility] 1538) [address] POCT-GLUCOSE [id number] 22:42:00 Test Item Value Reference Range Interpretation Comments POC-GLUCOSE METER 97 mg/dL 70-110 TESTED AT [place] [address] (BANNER) (test code = PA[facility] [address] 1538) POCT-GLUCOSE [id number] 21:47:00 Test Item Value Reference Range Interpretation Comments POC-GLUCOSE METER 64 mg/dL 70-110 L Notified Ciro Polanco MD/TESTED AT (BANNER) (test code = [place] [address] [place] 1538) [facility] 7703 0 POCT-GLUCOSE [id number] 18:48:00 Test Item Value Reference Range Interpretation Comments POC-GLUCOSE METER 198 mg/dL 70-110 H TESTED AT [facility] 6720 (BEAKER) (test code = [place] 1538) [address] COMPREHENSIVE METABOLIC [id number] 18:06:00 Test Item Value Reference Range Interpretation [...] S NOT APPLICABLE FOR DIALYSIS PATIEN TS. [id number] 18:06:00 Test Item Value Reference Range Interpretation Comments LIPASE (BEAKER) (test code = 749) < U/L 8-78 L URINALYSIS WITH MICROSCOPIC IF [id number] 17:06:00 Test Item Value Reference Range Interpretation [...] 463) SOURCE(BEAKER) (test code = 2795) URINALYSIS [id number] 17:06:00 Test Item Value Reference Range Interpretation Comments RBC UA (BEAKER) (test code = 519) 1 /HPF WBC UA (BEAKER) (test code = 520) 8 /HPF SQUAMOUS EPITHELIAL (BEAKER) (test 1 /HPF code = 516) POCT-GLUCOSE [id number] 13:05:00 Test Item Value Reference Range Interpretation Comments POC-GLUCOSE METER 120 mg/dL 70-110 H TESTED AT [facility] 6720 (BEAKER) (test code = PAUL T[facility] 1538) [address] RAD, ABDOMEN/KUB, 1 VIEW [id number] 12:20:00Reason for exam:->abdominal painFINAL REPORT ONE VIEW [...] MDReport Verified Date/Time: 11/12/2018 12:20:31 Reading Location: [facility] C013T Transitional Reading Room [id number] 08:09:00 Test Item Value Reference Range Interpretation Comments BLOOD UREA NITROGEN (BANNER) (test 12 mg/dL 7- code = 354) [id number] 08:09:00 Test Item Value Reference Range Interpretation Comments CREATININE (BANNER) 0.72 mg/dL 0.57-1.25 (test code = 358) EGFR (BANNER) (test 119 mL/min/1.73 ESTIM ATED GFR IS code = 1092) sq m NOT ACCURATE CREATININE CLEARANCE IN PREDICTING GLOMERULAR FILTRATION RATE . ESTIMATED GFR I S NOT APPLICABLE FOR DIALYSIS PATIEN TS. POCT-GLUCOSE [id number] 08:05:00 Test Item Value Reference Range Interpretation Comments POC-GLUCOSE METER 144 mg/dL 70-110 H TESTED AT [place] [address] (BANNER) (test code = [facility] Ciro [facility] 1538) [address] POCT-GLUCOSE [id number] 03:58:00 Test Item Value Reference Range Interpretation Comments POC-GLUCOSE METER 316 mg/dL 70-110 H Notified Ciro Polanco MD/TESTED (BANNER) (test code = AT [address] 1538) [facility] [address] 0 POCT-GLUCOSE [id number] 21:17:00 Test Item Value Reference Range Interpretation Comments POC-GLUCOSE METER 238 mg/dL 70-110 H TESTED AT [place] [address] (BANNER) (test code = [facility] 1538) [address] POCT-GLUCOSE [id number] 18:22:00 Test Item Value Reference Range Interpretation Comments POC-GLUCOSE METER 278 mg/dL 70-110 H TESTED AT [place] [address] (BANNER) (test code = [facility] Ciro [facility] 1538) [address] POCT-GLUCOSE [id number] 14:14:00 Test Item Value Reference Range Interpretation Comments POC-GLUCOSE METER 137 mg/dL 70-110 H TESTED AT [place] [address] (BANNER) (test code = [facility] 1538) [address] POCT-GLUCOSE [id number] 09:28:00 Test Item Value Reference Range Interpretation Comments POC-GLUCOSE METER 356 mg/dL 70-110 H TESTED AT [place] [address] (BANNER) (test code = PA[facility] 1538) [address] [id number] 07:01:00 Test Item Value Reference Range Interpretation Comments BLOOD UREA NITROGEN (BEAKER) (test 17 mg/dL 7 code = 354) [id number] 07:01:00 Test Item Value Reference Range Interpretation Comments CREATININE (BEAKER) 0.77 mg/dL 0.57-1.25 (test code = 358) EGFR (BANNER) (test 110 mL/min/1.73 ESTIM ATED GFR IS code = 1092) sq m NOT ACCURATE CREATININE CLEARANCE IN PREDICTING GLOMERULAR FILTRATION RATE . ESTIMATED GFR I S NOT APPLICABLE FOR DIALYSIS PATIEN TS. POCT-GLUCOSE [id number] 02:54:00 Test Item Value Reference Range Interpretation Comments POC-GLUCOSE METER 347 mg/dL 70-110 H Notified R Collin STAPLETON/TESTED (BANNER) (test code = AT [address] 1538) [facility] 7703 0 POCT-GLUCOSE [id number] 22:43:00 Test Item Value Reference Range Interpretation Comments POC-GLUCOSE METER 139 mg/dL 70-110 H TESTED AT [place] [address] (BANNER) (test code = PAUL T[facility] 1538) [address] POCT-GLUCOSE [id number] 19:28:00 Test Item Value Reference Range Interpretation Comments POC-GLUCOSE METER 91 mg/dL 70-110 TESTED AT [place] [address] (BANNER) (test code = PAUL T[facility] [address] 1538) POCT-GLUCOSE [id number] 18:09:00 Test Item Value Reference Range Interpretation Comments POC-GLUCOSE METER 137 mg/dL 70-110 H TESTED AT [place] [address] (BANNER) (test code = [facility] Ciro [facility] 1538) [address] BASIC METABOLIC [id number] 17:48:00 Test Item Value Reference Range Interpretation Comments SODIUM (BEAKER) 139 meq/L 136-145 (test code = 381) POTASSIUM (BEAKER) 3.5 meq/L 3.5-5.1 (test code = 379) CHLORIDE (BEAKER) 101 meq/L 98-107 (test code = 382) CO2 (BEAKER) (test 29 meq/L 2229 code = 355) BLOOD UREA NITROGEN 19 mg/dL 7- (SIMI) (test code = 354) CREATININE (BEAKER) 0.79 mg/dL 0.57-1.25 (test code = 358) GLUCOSE RANDOM 119 mg/dL 70-105 H (KIAKER) (test code = 652) CALCIUM (BEAKER) 8.7 mg/dL 8.4-10.2 (test code = 697) EGFR (BEAKER) (test 107 mL/min/1.73 ESTIM ATED GFR IS code = 1092) sq m NOT ACCURATE CREATININE CLEARANCE IN PREDICTING GLOMERULAR FILTRATION RATE . ESTIMATED GFR I S NOT APPLICABLE FOR DIALYSIS PATIEN TS. POCT-GLUCOSE [id number] 12:39:00 Test Item Value Reference Range Interpretation Comments POC-GLUCOSE METER 380 mg/dL 70-110 H Notified Ciro Polanco MD/TESTED (SIMI) (test code = AT [facility] [address] [place], [place] [address]) [facility] 7[address] 0 POCT-GLUCOSE [id number] 08:22:00 Test Item Value Reference Range Interpretation Comments POC-GLUCOSE METER 266 mg/dL 70-110 H TESTED AT [place] [address] (BANNER) (test code = PAUL T[facility] 1538) [address] [id number] 07:14:00 Test Item Value Reference Range Interpretation Comments BLOOD UREA NITROGEN (SIMI) (test 23 mg/dL 7-21 H code = 354) [id number] 07:14:00 Test Item Value Reference Range Interpretation Comments CREATININE (SIMI) 0.80 mg/dL 0.57-1.25 (test code = 358) EGFR (KIAKER) (test 105 mL/min/1.73 ESTIM ATED GFR IS code = 1092) sq m NOT ACCURATE CREATININE CLEARANCE IN PREDICTING GLOMERULAR FILTRATION RATE . ESTIMATED GFR I S NOT APPLICABLE FOR DIALYSIS PATIEN TS. POCT-GLUCOSE [id number] 05:06:00 Test Item Value Reference Range Interpretation Comments POC-GLUCOSE METER 135 mg/dL 70-110 H TESTED AT [place] [id number] (BANNER) (test code = PAUL Tanner [facility] 1538) [address] POCT-GLUCOSE [id number] 21:42:00 Test Item Value Reference Range Interpretation Comments POC-GLUCOSE METER 226 mg/dL 70-110 H TESTED AT [place] [address] (BANNER) (test code = [facility] [place] 1538) [address] POCT-GLUCOSE [id number] 21:40:00 Test Item Value Reference Range Interpretation Comments POC-GLUCOSE METER 238 mg/dL 70-110 H TESTED AT [place] [address] (BANNER) (test code = [facility] 1538) [address] BASIC METABOLIC [id number] 17:23:00 Test Item Value Reference Range Interpretation [...] (test code = 697) EGFR (BEAKER) (test 85 mL/min/1.73 ESTIMA MAGDALENO GFR IS code = 1092) sq m NOT ACCURATE CREATININE CLEARANCE IN PREDICTING GLOMERULAR FILTRATION RATE . ESTIMATED GFR I S NOT APPLICABLE FOR DIALYSIS PATIEN TS. SPIN/CONCENTRATION [id number] 14:16:00 Test Item Value Reference Range Interpretation Comments CONCENTRATION CHARGED (AKER) (test Done code = 2657) POCT-GLUCOSE [id number] 13:50:00 Test Item Value Reference Range Interpretation Comments POC-GLUCOSE METER 289 mg/dL 70-110 H TESTED AT [place] [address] (BANNER) (test code = [facility] 1538) [address] CF RESPIRATORY [id number] 09:17:00 Test Item Value Reference Range Interpretation [...] or >4 4+ Normal respiratory derick presentPOCT-GLUCOSE [id number] 08:57:00 Test Item Value Reference Range Interpretation Comments POC-GLUCOSE METER 258 mg/dL 70-110 H TESTED AT [facility] 6720 (BEAKER) (test code = [place] 1538) [address] [id number] 06:06:00 Test Item Value Reference Range Interpretation Comments BLOOD UREA NITROGEN (BEAKER) (test 15 mg/dL 7-21 code = 354) [id number] 06:06:00 Test Item Value Reference Range Interpretation Comments CREATININE (BEAKER) 0.85 mg/dL 0.57-1.25 (test code = 358) EGFR (BEAKER) (test 98 mL/min/1.73 ESTIMA MAGDALENO GFR IS code = 1092) sq m NOT ACCURATE CREATININE CLEARANCE IN PREDICTING GLOMERULAR FILTRATION RATE . ESTIMATED GFR I S NOT APPLICABLE FOR DIALYSIS PATIEN TS. BASIC METABOLIC [id number] 06:06:00 Test Item Value Reference Range Interpretation [...] NOT APPLICABLE FOR DIALYSIS PATIEN TS. HEMOGLOBIN [id number] 05:36:00 Test Item Value Reference Range Interpretation Comments HEMOGLOBIN A1C (BEAKER) (test code = 11.8 % 4.3-6.1 H 368) POCT-GLUCOSE [id number] 05:21:00 Test Item Value Reference Range Interpretation Comments POC-GLUCOSE METER 362 mg/dL 70-110 H TESTED AT [facility] 6720 (BEAKER) (test code = PA[facility] T[facility] 1538) [address] POCT-GLUCOSE [id number] 03:44:00 Test Item Value Reference Range Interpretation Comments POC-GLUCOSE METER 442 mg/dL 70-110 HH Notified R N MD/TESTED (BEAKER) (test code = AT [facility] [address] [address]38) [facility] [address] 0 COMPREHENSIVE METABOLIC [id number] 02:03:00 Test Item Value Reference Range Interpretation [...] S NOT APPLICABLE FOR DIALYSIS PATIEN TS. [id number] 01:59:00 Test Item Value Reference Range Interpretation Comments PHOSPHORUS (BEAKER) (test code = 3.6 mg/dL 2.3-4.7 604) [id number] 01:59:00 Test Item Value Reference Range Interpretation Comments MAGNESIUM (BEAKER) (test code = 1.6 mg/dL 1.6-2.6 627) GAMMA GLUTAMYL TRANSFERASE (GGT)2018-11-09 01:59:00 Test Item Value Reference Range Interpretation Comments GAMMA GLUTAMYL TRANSFERASE (BEAKER) 40 U/L 9-64 (test code = 364) LACTIC ACID, VENOUS, WHOLE [id number] 01:57:00 Test Item Value Reference Range Interpretation Comments LACTATE BLOOD VENOUS (2) (BEAKER) 0.9 mmol/L 0.5-2.2 (test code = 2872) CBC W/PLT COUNT & AUTO [id number] 01:40:00 Test Item Value Reference Range Interpretation [...] (test code = 2801) RAD, CHEST, 2 [id number] 21:08:00Reason for exam:->Cystic FibrosisShould this be performed [...] no acute-appearing skeletal abnormalities. Signed: Yeni Schmidt MDReport Verified Date/Time: 11/08/2018 21:08:35 Reading Location: [facility] Radiology Reading Room AFB CULTURE + [id number] 12:42:00 Test Item Value Reference Range Interpretation Comments CULTURE (BEAKER) (test No acid-fast bacilli code = 1095) isolated in 42 days AFB SMEAR (BEAKER) No acid fast bacilli (test code = 994) seen POCT-GLUCOSE [id number] 12:08:00 Test Item Value Reference Range Interpretation Comments POC-GLUCOSE METER 140 mg/dL 70-110 H TESTED AT [facility] 6720 (BEAKER) (test code = [place] 1538) [address] COMPREHENSIVE METABOLIC [id number] 10:03:00 Test Item Value Reference Range Interpretation [...] PATIEN TS. CBC W/PLT COUNT & AUTO [id number] 09:50:00 Test Item Value Reference Range Interpretation [...] PERCENT (BEAKER) (test code = 2801) POCT-GLUCOSE [id number] 09:50:00 Test Item Value Reference Range Interpretation Comments POC-GLUCOSE METER 271 mg/dL 70-110 H TESTED AT [place] [id number] (BEAKER) (test code = PAUL T[facility] 1538) [id number] POCT-GLUCOSE [id number] 01:59:00 Test Item Value Reference Range Interpretation Comments POC-GLUCOSE METER 377 mg/dL 70-110 H Notified Ciro Polanco MD/TESTED (BEAKER) (test code = [address] [facility] 7703 0 POCT-GLUCOSE [id number] 21:37:00 Test Item Value Reference Range Interpretation Comments POC-GLUCOSE METER 92 mg/dL 70-110 TESTED AT [place] [address] ([facility]) (test code = PAUL T[facility] [address] 1538) POCT-GLUCOSE [id number] 17:50:00 Test Item Value Reference Range Interpretation Comments POC-GLUCOSE METER 183 mg/dL 70-110 H TESTED AT [place] [address] ([facility]) (test code = PAUL T[facility] 1538) [address] POCT-GLUCOSE [id number] 13:40:00 Test Item Value Reference Range Interpretation Comments POC-GLUCOSE METER 230 mg/dL 70-110 H TESTED AT [place] [address] (BEAKER) (test code = PAUL T[facility] 1538) [address] COMPREHENSIVE METABOLIC [id number] 10:59:00 Test Item Value Reference Range Interpretation [...] PATIEN TS. CBC W/PLT COUNT & AUTO [id number] 10:45:00 Test Item Value Reference Range Interpretation [...] PERCENT (BEAKER) (test code = 2801) POCT-GLUCOSE [id number] 10:28:00 Test Item Value Reference Range Interpretation Comments POC-GLUCOSE METER 276 mg/dL 70-110 H TESTED AT [place] [address] ([facility]) (test code = [place] [id number]) [address] POCT-GLUCOSE [id number] 05:53:00 Test Item Value Reference Range Interpretation Comments POC-GLUCOSE METER 379 mg/dL 70-110 H Notified Ciro Polanco MD/TESTED ([facility]) (test code = AT [place] [address] [place] 1538) [facility] 7703 0 POCT-GLUCOSE [id number] 21:20:00 Test Item Value Reference Range Interpretation Comments POC-GLUCOSE METER 139 mg/dL 70-110 H TESTED AT [place] [address] ([facility]ANNER) (test code = PAUL Tanner [facility] 1538) [address] POCT-GLUCOSE [id number] 19:14:00 Test Item Value Reference Range Interpretation Comments POC-GLUCOSE METER 302 mg/dL 70-110 H TESTED AT [place] [address] ([facility]) (test code = PAUL Tanner [facility] 1538) [address] CBC W/PLT COUNT & AUTO [id number] 15:49:00 Test Item Value Reference Range Interpretation Comments WHITE BLOOD CELL COUNT (BANNER) 15.7 K/ L 3.5-10.5 H (test code [...] NOT APPLICABLE FOR DIALYSIS PATIEN TS. POCT-GLUCOSE [id number] 12:28:00 Test Item Value Reference Range Interpretation Comments POC-GLUCOSE METER 132 mg/dL 70-110 H TESTED AT [facility] 6720 ([facility]ANNER) (test code = NAOMITAYO Tanner [facility] 1538) [address] POCT-GLUCOSE [id number] 07:46:00 Test Item Value Reference Range Interpretation Comments POC-GLUCOSE METER 405 mg/dL 70-110 HH Notified R Collin MD/TESTED ([facility]ANNER) (test code = AT [address] 1538) [facility] 7703 0 POCT-GLUCOSE [id number] 02:08:00 Test Item Value Reference Range Interpretation Comments POC-GLUCOSE METER 112 mg/dL 70-110 H TESTED AT [facility] 6720 ([facility]ANNER) (test code = PAUL Tanner [facility] 1538) [address] POCT-GLUCOSE [id number] 21:19:00 Test Item Value Reference Range Interpretation Comments POC-GLUCOSE METER 307 mg/dL 70-110 H Notified R N MD/TESTED ([facility]ANNER) (test code = AT [address] 1538) [facility] 7703 0 COMPREHENSIVE METABOLIC [id number] 21:15:00 Test Item Value Reference Range Interpretation [...] PATIEN TS. CBC W/PLT COUNT & AUTO [id number] 20:58:00 Test Item Value Reference Range Interpretation [...] PERCENT (BEAKER) (test code = 2801) POCT-GLUCOSE [id number] 17:49:00 Test Item Value Reference Range Interpretation Comments POC-GLUCOSE METER 272 mg/dL 70-110 H TESTED AT [place] [address] ([facility]) (test code = PAUL Tanner [facility] 1538) [address] POCT-GLUCOSE [id number] 13:51:00 Test Item Value Reference Range Interpretation Comments POC-GLUCOSE METER 399 mg/dL 70-110 H TESTED AT [place] [address] ([facility]) (test code = PAUL Tanner [facility] 1538) [address] POCT-GLUCOSE [id number] 12:53:00 Test Item Value Reference Range Interpretation Comments POC-GLUCOSE METER 182 mg/dL 70-110 H TESTED AT [place] [address] ([facility]) (test code = PAUL Tanner [facility] 1538) [address] POCT-GLUCOSE [id number] 08:27:00 Test Item Value Reference Range Interpretation Comments POC-GLUCOSE METER 201 mg/dL 70-110 H TESTED AT [place] [address] ([facility]) (test code = PAUL Tanner [facility] 1538) [address] BLOOD [id number] 23:01:00 Test Item Value Reference Range Interpretation Comments CULTURE (BANNER) (test No growth in 5 days code = 1095) POCT-GLUCOSE [id number] 21:41:00 Test Item Value Reference Range Interpretation Comments POC-GLUCOSE METER 327 mg/dL 70-110 H Notified Ciro Polanco MD/TESTED ([facility]) (test code = AT [place] [address]) [facility] 7703 0 POCT-GLUCOSE [id number] 16:57:00 Test Item Value Reference Range Interpretation Comments POC-GLUCOSE METER 197 mg/dL 70-110 H TESTED AT [place] [address] ([facility]) (test code = PAUL Tanner [place] [address]) [address] POCT-GLUCOSE [id number] 13:01:00 Test Item Value Reference Range Interpretation Comments POC-GLUCOSE METER 311 mg/dL 70-110 H Notified Ciro Polanco MD/TESTED ([facility]) (test code = AT [place] [address]) [facility] 7703 0 POCT-GLUCOSE [id number] 12:11:00 Test Item Value Reference Range Interpretation Comments POC-GLUCOSE METER 54 mg/dL 70-110 L Notified Ciro Polanco MD/TESTED AT ([facility]) (test code = [place] [address]) [facility] 7703 0 POCT-GLUCOSE [id number] 08:52:00 Test Item Value Reference Range Interpretation Comments POC-GLUCOSE METER 165 mg/dL 70-110 H TESTED AT [place] [address] ([facility]) (test code = PAUL Tanner [place] [address]) [address] CBC W/PLT COUNT & AUTO [id number] 06:47:00 Test Item Value Reference Range Interpretation Comments WHITE BLOOD CELL COUNT (BANNER) 20.1 K/ L 3.5-10.5 H (test code = 775) RED BLOOD CELL COUNT ([facility]NER) 4.08 M/ L 3.93-5.22 (test code = 761) HEMOGLOBIN (BANNER) (test code = 10.9 GM/DL 11.2-15.7 L 410) HEMATOCRIT (BANNER) (test code = 36.2 % 34.1-44.9 411) MEAN CORPUSCULAR VOLUME (BANNER) 88.7 fL 79.4-94.8 (test code = 753) MEAN CORPUSCULAR HEMOGLOBIN 26.7 pg 25.6-32.2 (BANNER) (test code = 751) MEAN CORPUSCULAR HEMOGLOBIN [...] NOT APPLICABLE FOR DIALYSIS PATIEN TS. POCT-GLUCOSE [id number] 23:13:00 Test Item Value Reference Range Interpretation Comments POC-GLUCOSE METER 210 mg/dL 70-110 H TESTED AT [place] [address] ([facility]) (test code = PAUL Tanner [place] 1538) [address] BLOOD [id number] 23:01:00 Test Item Value Reference Range Interpretation Comments CULTURE ([facility]ANNER) (test No growth in 5 days code = 1095) POCT-GLUCOSE [id number] 18:25:00 Test Item Value Reference Range Interpretation Comments POC-GLUCOSE METER 186 mg/dL 70-110 H TESTED AT [place] [address] ([facility]) (test code = [facility] Ciro [facility] 1538) [address] FUNGUS CULTURE + [id number] 14:17:00 Test Item Value Reference Range Interpretation Comments CULTURE ([facility]ANNER) A 1+ Clau (test code = 1095) lisa frank FUNGUS SMEAR No fungi seen ([facility]ANNER) (test code = 1406) POCT-GLUCOSE [id number] 12:24:00 Test Item Value Reference Range Interpretation Comments POC-GLUCOSE METER 183 mg/dL 70-110 H TESTED AT [place] [address] ([facility]) (test code = [facility] Ciro [facility] 1538) [address] POCT-GLUCOSE [id number] 09:13:00 Test Item Value Reference Range Interpretation Comments POC-GLUCOSE METER 81 mg/dL 70-110 TESTED AT [place] [address] ([facility]) (test code = [facility] [address] 1538) SPUTUM CULTURE + GRAM [id number] 09:05:00 Test Item Value Reference Range Interpretation Comments CULTURE ([facility]NER) PSEUDOMONAS A 1+ Pseudomo viki (test code [...] = 25) Resistant <0 or >4 CULTURE ([facility]) PSEUDOMONAS A 1+ Pseudomo viki (test code [...] or >4 1+ Normal respiratory derick presentPOCT-GLUCOSE [id number] 06:29:00 Test Item Value Reference Range Interpretation Comments POC-GLUCOSE METER 291 mg/dL 70-110 H TESTED AT [facility] 6720 ([place]) (test code = [place] 1538) [address] COMPREHENSIVE METABOLIC [id number] 06:00:00 Test Item Value Reference Range Interpretation Comments TOTAL PROTEIN 6.2 gm/dL 6.0-8.3 (BEAKER) (test code = 770) [...] PATIEN TS. CBC W/PLT COUNT & AUTO [id number] 05:35:00 Test Item Value Reference Range Interpretation [...] PERCENT (BEAKER) (test code = 2801) POCT-GLUCOSE [id number] 05:34:00 Test Item Value Reference Range Interpretation Comments POC-GLUCOSE METER 207 mg/dL 70-110 H TESTED AT [facility] 6720 (BEAKER) (test code = [place] 1538) [address] POCT-GLUCOSE [id number] 21:35:00 Test Item Value Reference Range Interpretation Comments POC-GLUCOSE METER 500 mg/dL 70-110 HH Notified R Collin STAPLETON/TESTED (BEAKER) (test code = AT [facility] 6720 [place] 1538) [facility] 7703 0 POCT-GLUCOSE [id number] 18:12:00 Test Item Value Reference Range Interpretation Comments POC-GLUCOSE METER 433 mg/dL 70-110 HH TESTED AT [place] [address] (BEAKER) (test code = PAUL Tanner [facility] 1538) [address] POCT-GLUCOSE [id number] 14:05:00 Test Item Value Reference Range Interpretation Comments POC-GLUCOSE METER 298 mg/dL 70-110 H TESTED AT [place] [address] (BEAKER) (test code = PAUL Tanner [facility] 1538) [address]392 POCT-GLUCOSE [id number] 08:34:00 Test Item Value Reference Range Interpretation Comments POC-GLUCOSE METER 171 mg/dL 70-110 H TESTED AT [place] [address] (BEAKER) (test code = PAUL Tanner [facility] 1538) [address] COMPREHENSIVE METABOLIC [id number] 05:54:00 Test Item Value Reference Range Interpretation [...] S NOT APPLICABLE FOR DIALYSIS PATIEN TS. [id number] 05:41:00 Test Item Value Reference Range Interpretation Comments POTASSIUM (BEAKER) (test code = 4.5 meq/L 3.5-5.1 379) POCT-GLUCOSE [id number] 05:24:00 Test Item Value Reference Range Interpretation Comments POC-GLUCOSE METER 415 mg/dL 70-110 Notified R N MD/TESTED (BEAKER) (test code = AT [facility] 6720 [place] 6308) [place] 7[address] 0 CBC W/PLT COUNT & AUTO [id number] 05:20:00 Test Item Value Reference Range Interpretation [...] 0-1 PERCENT (BEAKER) (test code = 2801) LACTIC ACID, VENOUS, WHOLE [id number] 05:18:00 Test Item Value Reference Range Interpretation Comments LACTATE BLOOD VENOUS (2) (BEAKER) 2.1 mmol/L 0.5-2.2 (test code = 2872) [id number] 05:15:00 Test Item Value Reference Range Interpretation Comments POTASSIUM (BEAKER) (test code = 4.5 meq/L 3.5-5.1 379) POCT-GLUCOSE [id number] 02:55:00 Test Item Value Reference Range Interpretation Comments POC-GLUCOSE METER 464 mg/dL 70-110 HH Notified R Collin MD/TESTED (BEAKER) (test code = AT [place] [id number] [place] [facility]8) [facility] 7703 0 POCT-GLUCOSE [id number] 21:44:00 Test Item Value Reference Range Interpretation Comments POC-GLUCOSE METER 324 mg/dL 70-110 H Notified R Collin MD/TESTED (BEAKER) (test code = AT [place] [id number] [place] [facility]8) [facility] 7703 0 POCT-GLUCOSE [id number] 18:33:00 Test Item Value Reference Range Interpretation Comments POC-GLUCOSE METER 272 mg/dL 70-110 H TESTED AT [place] [address] ([facility]ANNER) (test code = PAUL Tanner [facility] 1538) [address] POCT-GLUCOSE [id number] 17:27:00 Test Item Value Reference Range Interpretation Comments POC-GLUCOSE METER 354 mg/dL 70-110 H Notified R Collin STAPLETON/TESTED ([facility]) (test code = AT [address] 1538) [facility] 7703 0 POCT-GLUCOSE [id number] 12:14:00 Test Item Value Reference Range Interpretation Comments POC-GLUCOSE METER 178 mg/dL 70-110 H TESTED AT [place] [address] ([facility]NER) (test code = PAUL Tanner [facility] 1538) [address] POCT-GLUCOSE [id number] 08:20:00 Test Item Value Reference Range Interpretation Comments POC-GLUCOSE METER 211 mg/dL 70-110 H TESTED AT [place] [address] ([facility]NER) (test code = PAUL Tanner [facility] 1538) [address] COMPREHENSIVE METABOLIC [id number] 06:42:00 Test Item Value Reference Range Interpretation [...] NOT APPLICABLE FOR DIALYSIS PATIEN TS. POCT-GLUCOSE [id number] 06:39:00 Test Item Value Reference Range Interpretation Comments POC-GLUCOSE METER 224 mg/dL 70-110 H TESTED AT [facility] 6720 (BANNER) (test code = [place]ITAYO [place] 1538) [address] CBC W/PLT COUNT & AUTO [id number] 06:31:00 Test Item Value Reference Range Interpretation [...] PERCENT (BEAKER) (test code = 2801) POCT-GLUCOSE [id number] 02:22:00 Test Item Value Reference Range Interpretation Comments POC-GLUCOSE METER 354 mg/dL 70-110 H TESTED AT [place] [address] ([facility]) (test code = PAUL Tanner [facility] 1538) [address] POCT-GLUCOSE [id number] 22:38:00 Test Item Value Reference Range Interpretation Comments POC-GLUCOSE METER 224 mg/dL 70-110 H TESTED AT [place] [address] ([facility]) (test code = PAUL Tanner [facility] 1538) [address]997 POCT-GLUCOSE [id number] 21:24:00 Test Item Value Reference Range Interpretation Comments POC-GLUCOSE METER 349 mg/dL 70-110 H TESTED AT [place] [address] (BEAKER) (test code = PAUL Tanner [facility] 1538) [address] POCT-GLUCOSE [id number] 18:45:00 Test Item Value Reference Range Interpretation Comments POC-GLUCOSE METER 264 mg/dL 70-110 H TESTED AT [place] [address] (BEAKER) (test code = PAUL aTnner [facility] 1538) 10694 POCT-GLUCOSE [id number] 15:48:00 Test Item Value Reference Range Interpretation Comments POC-GLUCOSE METER 191 mg/dL 70-110 H TESTED AT [place] [address] (BEAKER) (test code = PAUL Tanner [facility] 1538) [address]95 POCT-GLUCOSE [id number] 15:17:00 Test Item Value Reference Range Interpretation Comments POC-GLUCOSE METER 111 mg/dL 70-110 H TESTED AT [place] [address] (BEAKER) (test code = PAUL Tanner [facility] 1538) 69831 POCT-GLUCOSE [id number] 11:13:00 Test Item Value Reference Range Interpretation Comments POC-GLUCOSE METER 297 mg/dL 70-110 H TESTED AT [place] [address] (BEAKER) (test code = PAUL Tanner [facility] 1538) 83322 POCT-GLUCOSE [id number] 08:10:00 Test Item Value Reference Range Interpretation Comments POC-GLUCOSE METER 221 mg/dL 70-110 H TESTED AT [place] [address] (BEAKER) (test code = PAUL Tanner [facility] 1538) [address] [id number] 05:11:00 Test Item Value Reference Range Interpretation Comments PHOSPHORUS (BEAKER) (test code = 4.0 mg/dL 2.3-4.7 604) [id number] 05:11:00 Test Item Value Reference Range Interpretation Comments MAGNESIUM (BEAKER) (test code = 1.6 mg/dL 1.6-2.6 627) COMPREHENSIVE METABOLIC [id number] 05:11:00 Test Item Value Reference Range Interpretation [...] PATIEN TS. CBC W/PLT COUNT & AUTO [id number] 04:57:00 Test Item Value Reference Range Interpretation [...] 0-1 PERCENT (BEAKER) (test code = 2801) [id number] 02:54:00 Test Item Value Reference Range Interpretation Comments PROCALCITONIN (BEAKER) (test code 0.07 ng/mL <0.05 H = 3036) SEPSIS RISK (ng/mL)Low: 0.05-0.50Intermediate: 0.51-2.00High: >=2.01POCT-GLUCOSE [id number] 01:59:00 Test Item Value Reference Range Interpretation Comments POC-GLUCOSE METER 265 mg/dL 70-110 H TESTED AT [facility] 67 (BANNER) (test code = PAUL Tanner [facility] 1538) 17643 POCT-GLUCOSE [id number] 21:36:00 Test Item Value Reference Range Interpretation Comments POC-GLUCOSE METER 256 mg/dL 70-110 H TESTED AT [facility] 6720 (BANNER) (test code = PAUL Tanner [facility] 1538) [address] CT, BRAIN, WITHOUT [id number] 20:55:00FINAL REPORT CT, BRAIN, WITHOUT CONTRAST CLINICAL [...] acute intracranial findings Signed: Rosa M Freitas MDReport Verified Date/Time: 09/30/2018 20:55:31 Reading Location: [address] Neuro Reading Room COMPREHENSIVE METABOLIC PANEL [...] APPLICABLE FOR DIALYSIS PATIEN TS. HCG, QUANTITATIVE, [id number] 18:38:00 Test Item Value Reference Range Interpretation [...] Davison MDReport Verified Date/Time: 09/30/2018 17:21:03 Reading Location: [facility] P006J Ultrasound Reading Room RAD, CHEST, 1 VIEW, NON [id number] 17:18:00Reason for exam:->assess port placementShould this be [...] in expected position. No pneumothorax. Signed: Flip Singereport Verified Date/Time: 09/30/2018 17:18:52 Reading Location: [facility] Diagnostic Imaging Reading Room - [place] [address] POCT-GLUCOSE [id number] 17:15:00 Test Item Value Reference Range Interpretation Comments POC-GLUCOSE METER > mg/dL 70-110 HH OUTSIDE [place] ASURING (BEAKER) (test code RANGETES MAGDALENO AT [facility] 6720 = 1538) [facility] [address] U/S, ABDOMINAL, [id number] 15:35:00Abdomen limited area? Add comment if clarification [...] MDReport Verified Date/Time: 09/30/2018 15:35:23 Reading Location: [address] Ultrasound Reading Room CBC W/PLT COUNT & AUTO [id number] 15:30:00 Test Item Value Reference Range Interpretation [...] (BEAKER) (test code = 2801) COMPREHENSIVE METABOLIC [id number] 14:42:00 Test Item Value Reference Range Interpretation [...] PATIEN TS. CBC W/PLT COUNT & AUTO [id number] 14:27:00 Test Item Value Reference Range Interpretation [...] ABSOLUTE COUNT 18.05 K/ L 1.56-6.13 H (BANNER) (test code = 670) LYMPHOCYTES ABSOLUTE COUNT 0.69 K/ L 1.18-3.74 L (AKER) (test code = 414) MONOCYTES ABSOLUTE COUNT (BEAKER) 0.54 K/ L 0.24-0.36 H (test code = 415) EOSINOPHILS ABSOLUTE COUNT 0.38 K/ L 0.04-0.36 H (BANNER) (test code = 416) BASOPHILS ABSOLUTE COUNT (AKER) 0.02 K/ L 0.01-0.08 (test code = 417) IMMATURE GRANULOCYTES-RELATIVE 1 % 0-1 PERCENT (BANNER) (test code = 2801) POCT-GLUCOSE [id number] 13:56:00 Test Item Value Reference Range Interpretation Comments POC-GLUCOSE METER 406 mg/dL 70-110 HH TESTED AT [place] [address] (BANNER) (test code = PAUL Tanner [facility] 1538) [address] POCT-GLUCOSE [id number] 12:35:00 Test Item Value Reference Range Interpretation Comments POC-GLUCOSE METER 122 mg/dL 70-110 H TESTED AT [place] [address] ([facility]ANNER) (test code = PAUL Tanner [facility] 1538) [address] POCT-GLUCOSE [id number] 12:04:00 Test Item Value Reference Range Interpretation Comments POC-GLUCOSE METER 67 mg/dL 70-110 L Will Repea t Test/TESTED (BANNER) (test code = AT [place] [address]) [facility] 7703 0 POCT-GLUCOSE [id number] 11:01:00 Test Item Value Reference Range Interpretation Comments POC-GLUCOSE METER 196 mg/dL 70-110 H TESTED AT [place] [address] (BANNER) (test code = PAUL Tanner [facility] 1538) [address] POCT-GLUCOSE [id number] 10:15:00 Test Item Value Reference Range Interpretation Comments POC-GLUCOSE METER 210 mg/dL 70-110 H TESTED AT [place] [address] (BANNER) (test code = NAOMITAYO Tanner [facility] 1538) [address] POCT-GLUCOSE [id number] 09:49:00 Test Item Value Reference Range Interpretation Comments POC-GLUCOSE METER 137 mg/dL 70-110 H TESTED AT [place] [address] (BANNER) (test code = PAUL Tanner [facility] 1538) [address] POCT-GLUCOSE [id number] 08:42:00 Test Item Value Reference Range Interpretation Comments POC-GLUCOSE METER 22 mg/dL 70-110 LL Will Repea t Test/TESTED (BANNER) (test code = AT [address] 1538) [facility] 7703 0 POCT-GLUCOSE [id number] 06:34:00 Test Item Value Reference Range Interpretation Comments POC-GLUCOSE METER 123 mg/dL 70-110 H TESTED AT [place] [address] (BANNER) (test code = PAUL Tanner [facility] 1538) [address]85 POCT-GLUCOSE [id number] 05:17:00 Test Item Value Reference Range Interpretation Comments POC-GLUCOSE METER 257 mg/dL 70-110 H TESTED AT [place] [address] (BANNER) (test code = PAUL Tanner [facility] 1538) 38339 POCT-GLUCOSE [id number] 04:33:00 Test Item Value Reference Range Interpretation Comments POC-GLUCOSE METER 197 mg/dL 70-110 H TESTED AT [place] [address] (BANNER) (test code = PAUL Tanner [facility] 1538) 20561 POCT-GLUCOSE [id number] 04:04:00 Test Item Value Reference Range Interpretation Comments POC-GLUCOSE METER 48 mg/dL 70-110 L TESTED AT [place] [address] (BANNER) (test code = PAUL Tanner [facility] [address] 1538) POCT-GLUCOSE [id number] 03:44:00 Test Item Value Reference Range Interpretation Comments POC-GLUCOSE METER 62 mg/dL 70-110 L TESTED AT [place] [address] (BANNER) (test code = PAUL Tanner [facility] [address] 1538) POCT-GLUCOSE [id number] 02:42:00 Test Item Value Reference Range Interpretation Comments POC-GLUCOSE METER 43 mg/dL 70-110 L Notified R Collin STAPLETON/TESTED AT (BANNER) (test code = [place] [address]) [facility] 7703 0 POCT-GLUCOSE [id number] 02:10:00 Test Item Value Reference Range Interpretation Comments POC-GLUCOSE METER 73 mg/dL 70-110 TESTED AT [place] [address] (BANNER) (test code = PAUL Tanner [facility] [address] 1538) POCT-GLUCOSE [id number] 00:59:00 Test Item Value Reference Range Interpretation Comments POC-GLUCOSE METER 222 mg/dL 70-110 H TESTED AT [place] [address] (BANNER) (test code = PAUL Tanner [facility] 1538) 57889 POCT-GLUCOSE [id number] 23:57:00 Test Item Value Reference Range Interpretation Comments POC-GLUCOSE METER 314 mg/dL 70-110 H TESTED AT [place] [address] (BANNER) (test code = PAUL Tanner [facility] 1538) 24064 POCT-GLUCOSE [id number] 22:42:00 Test Item Value Reference Range Interpretation Comments POC-GLUCOSE METER 197 mg/dL 70-110 H TESTED AT [place] [address] (BANNER) (test code = PAUL Tanner [facility] 1538) [address] POCT-GLUCOSE [id number] 21:38:00 Test Item Value Reference Range Interpretation Comments POC-GLUCOSE METER 153 mg/dL 70-110 H TESTED AT [place] [address] (BANNER) (test code = PAUL Tanner [facility] 1538) 36867 POCT-GLUCOSE [id number] 20:44:00 Test Item Value Reference Range Interpretation Comments POC-GLUCOSE METER 164 mg/dL 70-110 H TESTED AT [place] [address] (BANNER) (test code = PAUL Tanner [facility] 1538) 48063 POCT-GLUCOSE [id number] 19:15:00 Test Item Value Reference Range Interpretation Comments POC-GLUCOSE METER 186 mg/dL 70-110 H TESTED AT [place] [address] (BANNER) (test code = PAUL Tanner [facility] 1538) [address]87 POCT-GLUCOSE [id number] 18:06:00 Test Item Value Reference Range Interpretation Comments POC-GLUCOSE METER 215 mg/dL 70-110 H TESTED AT [place] [address] (BANNER) (test code = PAUL Tanner [facility] 1538) 22714 POCT-GLUCOSE [id number] 17:31:00 Test Item Value Reference Range Interpretation Comments POC-GLUCOSE METER 116 mg/dL 70-110 H TESTED AT [place] [address] (BANNER) (test code = PAUL Tanner [facility] 1538) 58064 POCT-GLUCOSE [id number] 15:46:00 Test Item Value Reference Range Interpretation Comments POC-GLUCOSE METER 311 mg/dL 70-110 H Notified R Collin MD/TESTED ([facility]) (test code = AT [place] [address]) [facility] 7703 0 POCT-GLUCOSE [id number] 14:37:00 Test Item Value Reference Range Interpretation Comments POC-GLUCOSE METER 306 mg/dL 70-110 H Notified R Collin MD/TESTED (BANNER) (test code = AT [place] [address]) [facility] 7703 0 POCT-GLUCOSE [id number] 14:07:00 Test Item Value Reference Range Interpretation Comments POC-GLUCOSE METER 326 mg/dL 70-110 H Patient on insulin (SIMI) (test code = Drip/T ESTED AT [place] [address]) [address] [place] [address] POCT-GLUCOSE [id number] 12:52:00 Test Item Value Reference Range Interpretation Comments POC-GLUCOSE METER 360 mg/dL 70-110 H Patient on insulin ([facility]) (test code = Drip/T ESTED AT [place] [address]) [address] [place] [address] POCT-GLUCOSE [id number] 11:24:00 Test Item Value Reference Range Interpretation Comments POC-GLUCOSE METER 366 mg/dL 70-110 H Notified R Collin MD/TESTED ([facility]) (test code = AT [place] [address]) [facility] 770 0 RAD, CHEST, 1 VIEW, NON [id number] 10:40:00Reason for exam:->pulm cystic fibrosisShould this be [...] Castellanos Verified Date/Time: 09/29/2018 10:40:52 Reading Location: [facility] Reading Room POCT-GLUCOSE [id number] 10:18:00 Test Item Value Reference Range Interpretation Comments POC-GLUCOSE METER 299 mg/dL 70-110 H TESTED AT [place] [address] ([facility]) (test code = PAUL Tanner [place] 1538) [id number] POCT-GLUCOSE [id number] 09:42:00 Test Item Value Reference Range Interpretation Comments POC-GLUCOSE METER 146 mg/dL 70-110 H TESTED AT [place] [address] ([facility]) (test code = PUAL Tnaner [place] 1538) [address] POCT-GLUCOSE [id number] 09:01:00 Test Item Value Reference Range Interpretation Comments POC-GLUCOSE METER 97 mg/dL 70-110 TESTED AT [place] [address] ([facility]) (test code = PAUL Tanner [facility] [address]38) POCT-GLUCOSE [id number] 07:56:00 Test Item Value Reference Range Interpretation Comments POC-GLUCOSE METER 144 mg/dL 70-110 H TESTED AT [place] [address] ([facility]) (test code = PAUL Tanner [place] 1538) [address] POCT-GLUCOSE [id number] 06:34:00 Test Item Value Reference Range Interpretation Comments POC-GLUCOSE METER 231 mg/dL 70-110 H TESTED AT [place] [address] ([facility]) (test code = PAUL Tanner [place] 1538) [address] POCT-GLUCOSE [id number] 05:35:00 Test Item Value Reference Range Interpretation Comments POC-GLUCOSE METER 330 mg/dL 70-110 H Notified R Collin STAP[place]TON/TESTED ([facility]) (test code = AT [address] [address]) [place] [address] POCT-GLUCOSE [id number] 04:31:00 Test Item Value Reference Range Interpretation Comments POC-GLUCOSE METER 291 mg/dL 70-110 H TESTED AT [place] [address] (BANNER) (test code = PAUL Tanner [place] 1538) [address] POCT-GLUCOSE [id number] 04:00:00 Test Item Value Reference Range Interpretation Comments POC-GLUCOSE METER 246 mg/dL 70-110 H TESTED AT [facility] 6720 (BEAKER) (test code = PAUL Tanner [place] 1538) [address] TSH/FREE T4 IF [id number] 03:14:00 Test Item Value Reference Range Interpretation Comments THYROID STIMULATING HORMONE 1.25 uIU/mL 0.35-4.94 (BEAKER) (test code = 772) COMPREHENSIVE METABOLIC [id number] 02:54:00 Test Item Value Reference Range Interpretation [...] 347) EGFR (BEAKER) (test 77 mL/min/1.73 ESTIMA MAGDALENO GFR IS code = 1092) sq m NOT ACCURATE CREATININE CLEARANCE IN PREDICTING GLOMERULAR FILTRATION RATE . ESTIMATED GFR I S NOT APPLICABLE FOR DIALYSIS PATIEN TS. CBC W/PLT COUNT & AUTO [id number] 02:37:00 Test Item Value Reference Range Interpretation [...] PERCENT (BEAKER) (test code = 2801) POCT-GLUCOSE [id number] 02:16:00 Test Item Value Reference Range Interpretation Comments POC-GLUCOSE METER 267 mg/dL 70-110 H TESTED AT [place] [address] ([facility]) (test code = [facility] 1538) [address] POCT-GLUCOSE [id number] 01:05:00 Test Item Value Reference Range Interpretation Comments POC-GLUCOSE METER 350 mg/dL 70-110 H TESTED AT [place] [address] ([facility]) (test code = [facility] 1538) [address] POCT-GLUCOSE [id number] 00:18:00 Test Item Value Reference Range Interpretation Comments POC-GLUCOSE METER 463 mg/dL 70-110 HH TESTED AT [place] [address] ([facility]) (test code = [facility] 1538) [address] BASIC METABOLIC [id number] 23:00:00 Test Item Value Reference Range Interpretation [...] NOT APPLICABLE FOR DIALYSIS PATIEN TS. POCT-GLUCOSE [id number] 22:53:00 Test Item Value Reference Range Interpretation Comments POC-GLUCOSE METER > mg/dL 70-110 HH OUTSIDE ME ASURING (BEAKER) (test code RANGENot ified JORDON STAPLETON/TESTED = 1538) AT [place] [address] Jane ZEPEDA [facility] 7703 0 POCT-GLUCOSE [id number] 20:20:00 Test Item Value Reference Range Interpretation Comments POC-GLUCOSE METER > mg/dL 70-110 HH OUTSIDE ME ASURING ([facility]) (test code RANGENot ified JORDON STAPLETON/TESTED = 1538) AT [place] [address] B KATELYN [facility] 7703 0 POCT-GLUCOSE [id number] 18:29:00 Test Item Value Reference Range Interpretation Comments POC-GLUCOSE METER 378 mg/dL 70-110 H TESTED AT [place] [address] ([facility]) (test code = [facility] Ciro [facility] 1538) [address] POCT-GLUCOSE [id number] 16:28:00 Test Item Value Reference Range Interpretation Comments POC-GLUCOSE METER 376 mg/dL 70-110 H TESTED AT [place] [address] ([facility]ANNER) (test code = [facility] Ciro [facility] 1538) [address] POCT-GLUCOSE [id number] 16:06:00 Test Item Value Reference Range Interpretation Comments POC-GLUCOSE METER 393 mg/dL 70-110 H TESTED AT [place] [address] ([facility]) (test code = [facility] 1538) [address] POCT-GLUCOSE [id number] 15:50:00 Test Item Value Reference Range Interpretation Comments POC-GLUCOSE METER 355 mg/dL 70-110 H Notified Ciro sheehan MD ([facility]) (test code = Patien t refused repeat 153) test/TESTED AT [place] [address] [facility] [address] POCT-GLUCOSE [id number] 15:21:00 Test Item Value Reference Range Interpretation Comments POC-GLUCOSE METER 265 mg/dL 70-110 H TESTED AT [place] [address] ([facility]) (test code = [facility] Ciro [facility] 1538) [address] POCT-GLUCOSE [id number] 14:41:00 Test Item Value Reference Range Interpretation Comments POC-GLUCOSE METER 225 mg/dL 70-110 H TESTED AT [place] [address] ([facility]) (test code = [facility] 1538) [address] ANG, VENOCAVAGRAM, [id number] 14:17:00Reason for exam:->Concern for SVC syndrome with [...] MDReport Verified Date/Time: 09/28/2018 14:17:02 Reading Location: [place] [id number] Angio Body Reading Room POCT-GLUCOSE [id number] 14:15:00 Test Item Value Reference Range Interpretation Comments POC-GLUCOSE METER 230 mg/dL 70-110 H TESTED AT [place] [address] ([facility]) (test code = PAUL Tanner [facility] 1538) [address] POCT-GLUCOSE [id number] 13:37:00 Test Item Value Reference Range Interpretation Comments POC-GLUCOSE METER 238 mg/dL 70-110 H TESTED AT [place] [address] ([facility]) (test code = PAUL Tanner [facility] 1538) 9[address] POCT-GLUCOSE [id number] 13:37:00 Test Item Value Reference Range Interpretation Comments POC-GLUCOSE METER 294 mg/dL 70-110 H TESTED AT [place] [address] ([facility]) (test code = PAUL Tanner [facility] 1538) 8[address] POCT-GLUCOSE [id number] 12:55:00 Test Item Value Reference Range Interpretation Comments POC-GLUCOSE METER 71 mg/dL 70-110 TESTED AT [place] [address] ([facility]) (test code = PAUL Tanner [facility] [address] 1538) POCT-GLUCOSE [id number] 12:01:00 Test Item Value Reference Range Interpretation Comments POC-GLUCOSE METER 148 mg/dL 70-110 H TESTED AT [place] [address] ([facility]) (test code = PAUL Tanner [facility] 1538) 20498 CBC W/PLT COUNT & AUTO [id number] 11:50:00 Test Item Value Reference Range Interpretation Comments WHITE BLOOD CELL COUNT (AKER) 15.3 K/ L 3.5-10.5 H (test code = 775) RED BLOOD CELL COUNT ([facility]ANNER) 3.90 M/ L 3.93-5.22 L (test code = 761) HEMOGLOBIN (BEAKER) (test code = 10.4 GM/DL 11.2-15.7 L 410) HEMATOCRIT (AKER) (test code = 34.8 % 34.1-44.9 411) MEAN CORPUSCULAR VOLUME (BEAKER) 89.2 fL 79.4-94.8 (test code = 753) MEAN CORPUSCULAR HEMOGLOBIN 26.7 pg 25.6-32.2 (BEAKER) (test code = 751) MEAN CORPUSCULAR HEMOGLOBIN CONC 29.9 GM/DL 32.2-35.5 L (BEAKER) (test code = 752) RED CELL DISTRIBUTION WIDTH 15.8 % 11.7-14.4 H (AKER) (test code = 412) PLATELET COUNT (BEAKER) [...] 3438) Received comment: User comments: Slide comments:POCT-GLUCOSE [id number] 11:46:00 Test Item Value Reference Range Interpretation Comments POC-GLUCOSE METER 27 mg/dL 70-110 LL TESTED AT [facility] 6720 (BEAKER) (test code = [place] [address] 1538) POCT-GLUCOSE [id number] 11:46:00 Test Item Value Reference Range Interpretation Comments POC-GLUCOSE METER 106 mg/dL 70-110 TESTED AT [place] [address] ([facility]) (test code = PAUL Tanner [facility] 1538) 35679 POCT-GLUCOSE [id number] 11:46:00 Test Item Value Reference Range Interpretation Comments POC-GLUCOSE METER 20 mg/dL 70-110 LL TESTED AT [place] [address] ([facility]) (test code = PAUL Tanner [facility] [address] 1538) POCT-GLUCOSE [id number] 11:46:00 Test Item Value Reference Range Interpretation Comments POC-GLUCOSE METER 63 mg/dL 70-110 L TESTED AT [place] [address] ([facility]) (test code = PAUL Tanner [facility] [address] 1538) CF RESPIRATORY [id number] 11:03:00 Test Item Value Reference Range Interpretation Comments CULTURE (BANNER) PSEUDOMONAS A 4+ Pseudomo viki (test code [...] = 25) Resistant <0 or >4 CULTURE (BANNER) A 4+ Pseudomo viki (test code = 1095) aeruginos a 1+ Normal respiratory derick presentPOCT-GLUCOSE [id number] 09:33:00 Test Item Value Reference Range Interpretation Comments POC-GLUCOSE METER 29 mg/dL 70-110 LL TESTED AT [facility] 6720 (BEAKER) (test code = [place] [address] 1538) POCT-GLUCOSE [id number] 08:48:00 Test Item Value Reference Range Interpretation Comments POC-GLUCOSE METER 134 mg/dL 70-110 H TESTED AT [facility] 6720 ([facility]) (test code = PAUL Tanner [facility] 1538) [address] COMPREHENSIVE METABOLIC [id number] 06:31:00 Test Item Value Reference Range Interpretation [...] S NOT APPLICABLE FOR DIALYSIS PATIEN TS. [id number] 06:28:00 Test Item Value Reference Range Interpretation Comments PROTIME (BEAKER) (test code = 13.2 seconds 11.7-14.7 759) INR (BANNER) (test code = 370) 1.0 <=5.9 PARTIAL THROMBOPLASTIN TIME 23.8 seconds 22.5-36.0 (BANNER) (test code = 760) RECOMMENDED COUMADIN/WARFARIN INR THERAPY RANGESSTANDARD DOSE: 2.0 - 3.0 Includes: PROPHYLAXIS forvenous thrombosis, systemic embolization; TREATMENT for venous thrombosis and/or pulmonary embolus.HIGH RISK: Target INR is 2.5-3.5 for patients with mechanical heart valves.POCT-GLUCOSE [id number] 06:01:00 Test Item Value Reference Range Interpretation Comments POC-GLUCOSE METER 102 mg/dL 70-110 TESTED AT [place] [address] ([facility]) (test code = [place] Tanner [facility] 1538) 11465 POCT-GLUCOSE [id number] 06:00:00 Test Item Value Reference Range Interpretation Comments POC-GLUCOSE METER 65 mg/dL 70-110 L TESTED AT [place] [address] ([facility]) (test code = NAOMITAYO Tanner [facility] [address] 1538) POCT-GLUCOSE [id number] 02:18:00 Test Item Value Reference Range Interpretation Comments POC-GLUCOSE METER 185 mg/dL 70-110 H TESTED AT [place] [address] ([facility]NER) (test code = NAOMITAYO Tanner [facility] 1538) [address]22 POCT-GLUCOSE [id number] 00:05:00 Test Item Value Reference Range Interpretation Comments POC-GLUCOSE METER 254 mg/dL 70-110 H TESTED AT [place] [address] ([facility]NER) (test code = [facility] Ciro [facility] 1538) [address] POCT-GLUCOSE [id number] 20:51:00 Test Item Value Reference Range Interpretation Comments POC-GLUCOSE METER 157 mg/dL 70-110 H TESTED AT [place] [address] ([facility]) (test code = [facility] Ciro [facility] 1538) [address]72 POCT-GLUCOSE [id number] 17:44:00 Test Item Value Reference Range Interpretation Comments POC-GLUCOSE METER 192 mg/dL 70-110 H TESTED AT [place] [address] ([facility]) (test code = [facility] Ciro [facility] 1538) [address]80 POCT-GLUCOSE [id number] 12:38:00 Test Item Value Reference Range Interpretation Comments POC-GLUCOSE METER 338 mg/dL 70-110 H Notified R N MD/TESTED (BEAKER) (test code = AT [facility] 6[address] [place] [address]) [place] [address] 0 AFB CULTURE + [id number] 10:58:00 Test Item Value Reference Range Interpretation Comments CULTURE (BEAKER) (test No acid-fast bacilli code = 1095) isolated in 42 days AFB SMEAR (BEAKER) No acid fast bacilli (test code = 994) seen COMPREHENSIVE METABOLIC [id number] 10:31:00 Test Item Value Reference Range Interpretation Comments TOTAL PROTEIN 6.5 gm/dL 6.0-8.3 (BEAKER) (test code = 770) ALBUMIN (BEAKER) 2.8 g/dL 3.5-5.0 L (test code = 1145) ALKALINE PHOSPHATASE 109 U/L 40-150 (BEAKER) (test code = 346) [...] PATIEN TS. CBC W/PLT COUNT & AUTO [id number] 10:30:00 Test Item Value Reference Range Interpretation [...] IMMATURE GRANULOCYTES-RELATIVE 2 % 0-1 H PERCENT (BANNER) (test code = 2801) POCT-GLUCOSE [id number] 08:59:00 Test Item Value Reference Range Interpretation Comments POC-GLUCOSE METER 108 mg/dL 70-110 TESTED AT [place] [address] ([facility]NER) (test code = PAUL Tanner [place] 1538) [address] POCT-GLUCOSE [id number] 07:11:00 Test Item Value Reference Range Interpretation Comments POC-GLUCOSE METER 170 mg/dL 70-110 H TESTED AT [place] [address] ([facility]NER) (test code = PAUL Tanner [place] 1538) [address] [id number] 06:34:00 Test Item Value Reference Range Interpretation Comments BLOOD UREA NITROGEN (BANNER) (test 24 mg/dL 7-21 H code = 354) [id number] 06:34:00 Test Item Value Reference Range Interpretation Comments CREATININE (BANNER) 0.87 mg/dL 0.57-1.25 (test code = 358) EGFR (BANNER) (test 95 mL/min/1.73 ESTIMA MAGDALENO GFR IS code = 1092) sq m NOT ACCURATE CREATININE CLEARANCE IN PREDICTING GLOMERULAR FILTRATION RATE . ESTIMATED GFR I S NOT APPLICABLE FOR DIALYSIS PATIEN TS. POCT-GLUCOSE [id number] 06:05:00 Test Item Value Reference Range Interpretation Comments POC-GLUCOSE METER 171 mg/dL 70-110 H TESTED AT [place] [address] ([facility]ANNER) (test code = PAUL Tanner [facility] 1538) 72877 SCREEN, [id number] 02:57:00 Test Item Value Reference Range Interpretation Comments TEST URINE (BANNER) (test Negative code = 583) POCT-GLUCOSE [id number] 00:14:00 Test Item Value Reference Range Interpretation Comments POC-GLUCOSE METER 262 mg/dL 70-110 H TESTED AT [place] [address] ([facility]ANNER) (test code = NAOMITAY[place] Tanner [facility] 1538) 36398 POCT-GLUCOSE [id number] 21:03:00 Test Item Value Reference Range Interpretation Comments POC-GLUCOSE METER 287 mg/dL 70-110 H TESTED AT [place] [address] ([facility]ANNER) (test code = [facility] Ciro [facility] 1538) 27374 RESPIRATORY PANEL [id number] 19:49:00 Test Item Value Reference Range Interpretation [...] [facility] Molecular Diagnostics Laboratory using the x.aiArray Respiratory Panel. It is FDA cleared and [...] laboratory is CLIA- certified and [employer] (CAP)-accredited to perform high complexity testing.POCT-GLUCOSE [id number] 17:42:00 Test Item Value Reference Range Interpretation Comments POC-GLUCOSE METER 277 mg/dL 70-110 H TESTED AT [place] [address] ([facility]NER) (test code = [place] [address]88) [address] POCT-GLUCOSE [id number] 14:59:00 Test Item Value Reference Range Interpretation Comments POC-GLUCOSE METER 328 mg/dL 70-110 H Will Repea t Test/TESTED ([facility]ANNER) (test code = AT [place] [address]448) [facility] 7703 0 POCT-GLUCOSE [id number] 12:42:00 Test Item Value Reference Range Interpretation Comments POC-GLUCOSE METER 152 mg/dL 70-110 H TESTED AT [place] [address] ([facility]NER) (test code = [place] 563388) [address] POCT-GLUCOSE [id number] 12:22:00 Test Item Value Reference Range Interpretation Comments POC-GLUCOSE METER 168 mg/dL 70-110 H TESTED AT [place] [address] ([facility]NER) (test code = [place] 563388) [address] COMPREHENSIVE METABOLIC [id number] 10:53:00 Test Item Value Reference Range Interpretation Comments TOTAL PROTEIN 7.0 gm/dL 6.0-8.3 (BANNER) (test code = 770) ALBUMIN (BANNER) 2.8 g/dL 3.5-5.0 L (test code = 1145) ALKALINE PHOSPHATASE 140 U/L 40-150 (BANNER) (test code = 346) BILIRUBIN TOTAL 0.1 [...] NOT APPLICABLE FOR DIALYSIS PATIEN TS. POCT-GLUCOSE [id number] 10:43:00 Test Item Value Reference Range Interpretation Comments POC-GLUCOSE METER 126 mg/dL 70-110 H TESTED AT [facility] 6720 (BANNER) (test code = [place] 1538) [address] CBC W/PLT COUNT & AUTO [id number] 10:40:00 Test Item Value Reference Range Interpretation [...] PERCENT (BEAKER) (test code = 2801) POCT-GLUCOSE [id number] 10:22:00 Test Item Value Reference Range Interpretation Comments POC-GLUCOSE METER 95 mg/dL 70-110 TESTED AT [facility] 6720 (BANNER) (test code = [place] [address] 1538) [id number] 09:47:00 Test Item Value Reference Range Interpretation Comments CREATININE (BEAKER) 0.71 mg/dL 0.57-1.25 (test code = 358) EGFR (BEAKER) (test 121 mL/min/1.73 ESTIM ATED GFR IS code = 1092) sq m NOT ACCURATE CREATININE CLEARANCE IN PREDICTING GLOMERULAR FILTRATION RATE . ESTIMATED GFR I S NOT APPLICABLE FOR DIALYSIS PATIEN JADEN. [id number] 09:41:00 Test Item Value Reference Range Interpretation Comments BLOOD UREA NITROGEN (BEAKER) (test 15 mg/dL 7-21 code = 354) LACTIC ACID, VENOUS, WHOLE [id number] 09:18:00 Test Item Value Reference Range Interpretation Comments LACTATE BLOOD VENOUS (2) (BEAKER) 1.1 mmol/L 0.5-2.2 (test code = 2872) CBC W/PLT COUNT & AUTO [id number] 09:13:00 Test Item Value Reference Range Interpretation [...] (BEAKER) (test code = 2801) POCT-BLOOD GASES, [id number] 09:11:00 Test Item Value Reference Range Interpretation Comments TEMP, CELSIUS-POC 37.0 (BEAKER) (test code = 1834) FIO2-POC (BEAKER) TESTED AT [place] [address] (test code = 1835) [facility] [address] PH, VENOUS-POC 7.377 7.320-7.420 (BEAKER) (test code [...] H VENOUS-POC (BEAKER) (test code = 1847) [id number] 09:11:00 Test Item Value Reference Range Interpretation Comments POC-SODIUM (BEAKER) 138 meq/L 135-148 TESTED A T [facility] 67 (test code = 1542) [facility] [address] [id number] 09:11:00 Test Item Value Reference Range Interpretation Comments POC-POTASSIUM 2.9 meq/L 3.6-5.5 L TESTED AT [place] [address] (BANNER) (test code [facility] [address] = 1540) [id number] 09:11:00 Test Item Value Reference Range Interpretation Comments POC-GLUCOSE (BANNER) 143 mg/dL 70-110 H TESTED AT [place] [address] (test code = 1855) [facility] [address] POCT-CALCIUM [id number] 09:11:00 Test Item Value Reference Range Interpretation Comments POC-CALCIUM IONIZED 1.10 mmol/L 1.12-1.27 L TESTED A T [place] [address] (BANNER) (test code = [facility] Ciro [facility] 1536) [address] [id number] 09:11:00 Test Item Value Reference Range Interpretation Comments POC-HEMATOCRIT 36 % 36-45 TESTED AT [place] [address] (BANNER) (test code = [facility] [address] 1857) [id number] 09:11:00 Test Item Value Reference Range Interpretation Comments POC-HEMOGLOBIN 12.2 g/dL 12.0-15.0 TESTED AT [place] [address] (BANNER) (test code [facility] = 1856) 99672KHVBYL AT [address] [address] POCT-LACTIC ACID, [id number] 09:11:00 Test Item Value Reference Range Interpretation Comments POC-LACTIC ACID, 1.2 mmol/L 0.9-1.7 TESTED AT [place] [address] VENOUS (BANNER) (test [facility] Ciro [facility] code = 2805) [address] POCT-GLUCOSE [id number] 08:55:00 Test Item Value Reference Range Interpretation Comments POC-GLUCOSE METER 283 mg/dL 70-110 H TESTED AT [place] [address] (BANNER) (test code = [facility] 1538) 17732 POCT-GLUCOSE [id number] 08:34:00 Test Item Value Reference Range Interpretation Comments POC-GLUCOSE METER < mg/dL 70-110 LL OUTSIDE ME ASURING (BANNER) (test code = RANGEW ill Repeat 1538) Test/TESTED AT [address] [address] POCT-GLUCOSE [id number] 21:30:00 Test Item Value Reference Range Interpretation Comments POC-GLUCOSE METER 184 mg/dL 70-110 H TESTED AT [place] [address] (BANNER) (test code = PAUL Tanner [facility] 1538) 44681 POCT-GLUCOSE [id number] 18:56:00 Test Item Value Reference Range Interpretation Comments POC-GLUCOSE METER 128 mg/dL 70-110 H TESTED AT [place] [address] (BANNER) (test code = [place] 249868) [address] POCT-GLUCOSE [id number] 15:23:00 Test Item Value Reference Range Interpretation Comments POC-GLUCOSE METER 41 mg/dL 70-110 L Will Repea t Test/TESTED (BANNER) (test code = AT [place] [address]) [facility] 7703 0 POCT-GLUCOSE [id number] 13:56:00 Test Item Value Reference Range Interpretation Comments POC-GLUCOSE METER 105 mg/dL 70-110 TESTED AT [place] [address] (BANNER) (test code = [facility] [place] 249868) [address] POCT-GLUCOSE [id number] 07:40:00 Test Item Value Reference Range Interpretation Comments POC-GLUCOSE METER 321 mg/dL 70-110 H Will Repea t Test/TESTED (BANNER) (test code = AT [place] [address]) [facility] 7703 0 [id number] 06:19:00 Test Item Value Reference Range Interpretation Comments BLOOD UREA NITROGEN (BANNER) (test 13 mg/dL 7-21 code = 354) [id number] 06:19:00 Test Item Value Reference Range Interpretation Comments CREATININE (BANNER) 0.77 mg/dL 0.57-1.25 (test code = 358) EGFR (BANNER) (test 110 mL/min/1.73 ESTIM ATED GFR IS code = 1092) sq m NOT ACCURATE CREATININE CLEARANCE IN PREDICTING GLOMERULAR FILTRATION RATE . ESTIMATED GFR I S NOT APPLICABLE FOR DIALYSIS PATIEN TS. POCT-GLUCOSE [id number] 21:13:00 Test Item Value Reference Range Interpretation Comments POC-GLUCOSE METER 328 mg/dL 70-110 H TESTED AT [place] [address] (BANNER) (test code = [place] [address]) [address] POCT-GLUCOSE [id number] 16:33:00 Test Item Value Reference Range Interpretation Comments POC-GLUCOSE METER 309 mg/dL 70-110 H TESTED AT [place] [address] (BANNER) (test code = [facility] 1538) [address] [id number] 12:59:00 Test Item Value Reference Range Interpretation Comments BLOOD UREA NITROGEN (BEAKER) (test 11 mg/dL 7-21 code = 354) [id number] 12:59:00 Test Item Value Reference Range Interpretation Comments CREATININE (BEAKER) 0.93 mg/dL 0.57-1.25 (test code = 358) EGFR (BEAKER) (test 88 mL/min/1.73 ESTIMA MAGDALENO GFR IS code = 1092) sq m NOT ACCURATE CREATININE CLEARANCE IN PREDICTING GLOMERULAR FILTRATION RATE . ESTIMATED GFR I S NOT APPLICABLE FOR DIALYSIS PATIEN TS. POCT-GLUCOSE [id number] 12:45:00 Test Item Value Reference Range Interpretation Comments POC-GLUCOSE METER 206 mg/dL 70-110 H TESTED AT [place] [address] (BANNER) (test code = [facility] 1538) [address] BASIC METABOLIC [id number] 10:43:00 Test Item Value Reference Range Interpretation [...] NOT APPLICABLE FOR DIALYSIS PATIEN TS. KETONE, [id number] 10:27:00 Test Item Value Reference Range Interpretation Comments KETONES, BLOOD (BEAKER) (test code 0.1 mmol/L <0.4 = 1103) POCT-GLUCOSE [id number] 09:46:00 Test Item Value Reference Range Interpretation Comments POC-GLUCOSE METER 468 mg/dL 70-110 HH TESTED AT [place] [address] (BEAKER) (test code = PAUL Tanner [facility] 153) [address] POCT-GLUCOSE [id number] 09:06:00 Test Item Value Reference Range Interpretation Comments POC-GLUCOSE METER 447 mg/dL 70-110 HH Will Repea t Test/TESTED (BEAKER) (test code = AT [address] 1538) [place] [address] 0 POCT-GLUCOSE [id number] 04:35:00 Test Item Value Reference Range Interpretation Comments POC-GLUCOSE METER 430 mg/dL 70-110 HH Notified R N MD/TESTED (BEAKER) (test code = AT [address] 1538) [place] [address] 0 POCT-GLUCOSE [id number] 00:48:00 Test Item Value Reference Range Interpretation Comments POC-GLUCOSE METER 481 mg/dL 70-110 HH Notified R N MD/TESTED (BEAKER) (test code = AT [address] 1538) [place] [address] 0 SPIN/CONCENTRATION [id number] 00:21:00 Test Item Value Reference Range Interpretation Comments CONCENTRATION CHARGED (BEAKER) (test Done code = 2657) POCT-GLUCOSE [id number] 22:01:00 Test Item Value Reference Range Interpretation Comments POC-GLUCOSE METER > mg/dL 70-110 HH OUTSIDE ME ASURING (BEAKER) (test code RANGENot ified JORDON MD/TESTED = 1538) AT [place] [address] [address] [place] [address] 0 RESPIRATORY PANEL [id number] 20:48:00 Test Item Value Reference Range Interpretation [...] [facility] Molecular Diagnostics Laboratory using the x.aiArray Respiratory Panel. It is FDA cleared and [...] laboratory is CLIA- certified and [employer] ([employer])-accredited to perform high complexity testing.POCT-GLUCOSE [id number] 18:50:00 Test Item Value Reference Range Interpretation Comments POC-GLUCOSE METER > mg/dL 70-110 HH OUTSIDE ME ASURING (BEAKER) (test code RANGETES MAGDALENO AT [place] [address] = 1538) [facility] [address] POCT-GLUCOSE [id number] 13:49:00 Test Item Value Reference Range Interpretation Comments POC-GLUCOSE METER > mg/dL 70-110 HH OUTSIDE ME ASURING (BEAKER) (test code RANGETES MAGDALENO AT [place] [address] = 1538) [facility] [address] HEMOGLOBIN [id number] 09:49:00 Test Item Value Reference Range Interpretation Comments HEMOGLOBIN A1C (BEAKER) (test code = 12.9 % 4.3-6.1 H 368) POCT-GLUCOSE [id number] 08:18:00 Test Item Value Reference Range Interpretation Comments POC-GLUCOSE METER 301 mg/dL 70-110 H TESTED AT [place] [address] (BEAKER) (test code = [facility] 1538) [address] URINALYSIS [id number] 06:31:00 Test Item Value Reference Range Interpretation Comments RBC UA (BEAKER) (test code = 519) 2 /HPF WBC UA (BEAKER) (test code = 520) 4 /HPF BACTERIA (BEAKER) (test code = 517) Rare MUCUS (BEAKER) (test code = 1574) Rare SQUAMOUS EPITHELIAL (BEAKER) (test 4 /HPF code = 516) YEAST (BEAKER) (test code = 1585) Few URINALYSIS WITH MICROSCOPIC IF [id number] 06:24:00 Test Item Value Reference Range Interpretation [...] SOURCE(BEAKER) (test code = 2795) COMPREHENSIVE METABOLIC [id number] 05:21:00 Test Item Value Reference Range Interpretation [...] S NOT APPLICABLE FOR DIALYSIS PATIEN TS. [id number] 05:05:00 Test Item Value Reference Range Interpretation Comments MAGNESIUM (BEAKER) 1.4 mg/dL 1.6-2.6 L Specimen slightly (test code = 627) hemolyzed [id number] 05:05:00 Test Item Value Reference Range Interpretation Comments PHOSPHORUS (BEAKER) 3.9 mg/dL 2.3-4.7 Specimen slightly (test code = 604) hemolyzed [id number] 05:05:00 Test Item Value Reference Range Interpretation Comments BLOOD UREA NITROGEN (BEAKER) (test 6 mg/dL 7-21 L code = 354) [id number] 05:05:00 Test Item Value Reference Range Interpretation [...] hemolyz ed (test code = 364) POCT-GLUCOSE [id number] 04:43:00 Test Item Value Reference Range Interpretation Comments POC-GLUCOSE METER 493 mg/dL 70-110 Notified Ciro Polanco MD/TESTED (BEAKER) (test code = AT [facility] [address]) [place] [address] CBC W/PLT COUNT & AUTO [id number] 04:15:00 Test Item Value Reference Range Interpretation [...] (BEAKER) (test code = 2801) POCT-LACTIC ACID, [id number] 21:07:00 Test Item Value Reference Range Interpretation Comments POC-LACTIC ACID, 1.5 mmol/L 0.9-1.7 TESTED AT [facility] [address] (BEAKER) (test [place] code = 2805) [address] RAD, CHEST, 2 [id number] 20:59:00Reason for exam:->SHORTNESS OF BREATHShould this be [...] [place] Verified Date/Time: 09/22/2018 20:59:18 Reading Location: [facility] B1 [id number] Consult Reading Room TROPONIN [id number] 20:13:00 Test Item Value Reference Range Interpretation Comments TROPONIN I (BEAKER) (test code = 397) < ng/mL 0.00-0.03 [id number] 20:07:00 Test Item Value Reference Range Interpretation Comments MAGNESIUM (BEAKER) (test code = 1.7 mg/dL 1.6-2.6 627) COMPREHENSIVE METABOLIC [id number] 20:07:00 Test Item Value Reference Range Interpretation [...] S NOT APPLICABLE FOR DIALYSIS PATIEN TS. [id number] 20:07:00 Test Item Value Reference Range Interpretation Comments LIPASE (BEAKER) (test code = 749) < U/L 8-78 L [id number] 20:03:00 Test Item Value Reference Range Interpretation [...] (test code = 2801) FUNGUS CULTURE + [id number] 11:38:00 Test Item Value Reference Range Interpretation Comments CULTURE (BEAKER) A 1 out of 3 media (test code = 1095) Penicilli um speciesThis is a corrected organism result. Previou s result was Mold on 09/2018 at 0812 RE[employer]RE[employer] ASSISTANT FUNGUS SMEAR (BEAKER) 2+ yeast (test code = 1406) CF RESPIRATORY [id number] 15:08:00 Test Item Value Reference Range Interpretation [...] or >4 3+ Normal respiratory derick presentPOCT-GLUCOSE [id number] 13:25:00 Test Item Value Reference Range Interpretation Comments POC-GLUCOSE METER 178 mg/dL 70-110 H TESTED AT [facility] 6720 (BEAKER) (test code = [place] 1538) [address] [id number] 11:51:00 Test Item Value Reference Range Interpretation Comments POTASSIUM (BEAKER) (test code = 4.6 meq/L 3.5-5.1 379) BASIC METABOLIC [id number] 10:31:00 Test Item Value Reference Range Interpretation [...] S NOT APPLICABLE FOR DIALYSIS PATIEN TS. [id number] 10:26:00 Test Item Value Reference Range Interpretation Comments MAGNESIUM (BEAKER) (test code = 1.6 mg/dL 1.6-2.6 627) POCT-GLUCOSE [id number] 09:00:00 Test Item Value Reference Range Interpretation Comments POC-GLUCOSE METER 217 mg/dL 70-110 H TESTED AT [place] [address] (BANNER) (test code = PAUL Tanner [facility] 1538) [address] POCT-GLUCOSE [id number] 22:17:00 Test Item Value Reference Range Interpretation Comments POC-GLUCOSE METER 144 mg/dL 70-110 H TESTED AT [place] [address] (BANNER) (test code = PAUL Tanner [facility] 1538) [address] POCT-GLUCOSE [id number] 21:22:00 Test Item Value Reference Range Interpretation Comments POC-GLUCOSE METER 239 mg/dL 70-110 H TESTED AT [place] [address] (BANNER) (test code = PAUL Tanner [facility] 1538) [address] POCT-GLUCOSE [id number] 14:57:00 Test Item Value Reference Range Interpretation Comments POC-GLUCOSE METER 175 mg/dL 70-110 H TESTED AT [place] [address] (BANNER) (test code = PAUL Tanner [facility] 1538) [address] RAD, ABDOMEN/KUB, 1 VIEW [id number] 14:55:00Reason for exam:->abdominal painFINAL REPORT EXAM: AP [...] No acute osseous abnormality. Signed: Leonarda [facility]all [facility] Verified Date/Time: 08/24/2018 14:55:58 Reading Location: [facility] Reading Room POCT-GLUCOSE [id number] 11:49:00 Test Item Value Reference Range Interpretation Comments POC-GLUCOSE METER 137 mg/dL 70-110 H TESTED AT [place] [address] (BANNER) (test code = PAUL Tanner [facility] 1538) [address] POCT-GLUCOSE [id number] 08:36:00 Test Item Value Reference Range Interpretation Comments POC-GLUCOSE METER 106 mg/dL 70-110 TESTED AT [facility] 6720 (BEAKER) (test code = [place] 1702) [address] BASIC METABOLIC [id number] 06:35:00 Test Item Value Reference Range Interpretation [...] S NOT APPLICABLE FOR DIALYSIS PATIEN TS. [id number] 06:35:00 Test Item Value Reference Range Interpretation Comments MAGNESIUM (BEAKER) (test code = 1.4 mg/dL 1.6-2.6 L 627) BASIC METABOLIC [id number] 06:35:00 Test Item Value Reference Range Interpretation [...] mg/dL 8.4-10.2 (test code = 697) EGFR (BANNER) (test 144 mL/min/1.73 ESTIM ATED GFR IS code = 1092) sq m NOT ACCURATE CREATININE CLEARANCE IN PREDICTING GLOMERULAR FILTRATION RATE . ESTIMATED GFR I S NOT APPLICABLE FOR DIALYSIS PATIEN TS. POCT-GLUCOSE [id number] 23:02:00 Test Item Value Reference Range Interpretation Comments POC-GLUCOSE METER 142 mg/dL 70-110 H TESTED AT [place] [address] (BANNER) (test code = [facility] 1538) [address] POCT-GLUCOSE [id number] 19:53:00 Test Item Value Reference Range Interpretation Comments POC-GLUCOSE METER 281 mg/dL 70-110 H TESTED AT [place] [address] (BANNER) (test code = [facility] 1538) [address] POCT-GLUCOSE [id number] 15:30:00 Test Item Value Reference Range Interpretation Comments POC-GLUCOSE METER 155 mg/dL 70-110 H TESTED AT [place] [address] (BANNER) (test code = [facility] 1538) [address] POCT-GLUCOSE [id number] 09:06:00 Test Item Value Reference Range Interpretation Comments POC-GLUCOSE METER 97 mg/dL 70-110 TESTED AT [place] [address] (BANNER) (test code = [facility] [address] 1538) POCT-GLUCOSE [id number] 21:52:00 Test Item Value Reference Range Interpretation Comments POC-GLUCOSE METER 339 mg/dL 70-110 H Notified R Collin STAPLETON/TESTED (BANNER) (test code = AT [address] 1538) [facility] [address] 0 POCT-GLUCOSE [id number] 18:04:00 Test Item Value Reference Range Interpretation Comments POC-GLUCOSE METER > mg/dL 70-110 HH OUTSIDE ME ASURING (BANNER) (test code RANGETES MAGDALENO AT [place] [address] = 1538) [facility] [address] POCT-GLUCOSE [id number] 17:40:00 Test Item Value Reference Range Interpretation Comments POC-GLUCOSE METER 49 mg/dL 70-110 L TESTED AT [place] [address] (BANNER) (test code = [facility] [address] 1538) POCT-GLUCOSE [id number] 08:23:00 Test Item Value Reference Range Interpretation Comments POC-GLUCOSE METER 70 mg/dL 70-110 TESTED AT [facility] 67 (BANNER) (test code = [facility] [address] 1538) POCT-GLUCOSE [id number] 01:59:00 Test Item Value Reference Range Interpretation Comments POC-GLUCOSE METER 161 mg/dL 70-110 H TESTED AT [place] [address] (BANNER) (test code = [facility] 1538) [address] POCT-GLUCOSE [id number] 21:38:00 Test Item Value Reference Range Interpretation Comments POC-GLUCOSE METER 113 mg/dL 70-110 H TESTED AT [place] [address] (BANNER) (test code = [facility] 1538) [address]44 POCT-GLUCOSE [id number] 17:47:00 Test Item Value Reference Range Interpretation Comments POC-GLUCOSE METER 139 mg/dL 70-110 H TESTED AT [place] [address] (BANNER) (test code = [facility] 1538) 85952 POCT-GLUCOSE [id number] 12:13:00 Test Item Value Reference Range Interpretation Comments POC-GLUCOSE METER 172 mg/dL 70-110 H TESTED AT [place] [address] (BANNER) (test code = [facility] 1538) [address] BASIC METABOLIC [id number] 09:30:00 Test Item Value Reference Range Interpretation [...] NOT APPLICABLE FOR DIALYSIS PATIEN TS. POCT-GLUCOSE [id number] 08:40:00 Test Item Value Reference Range Interpretation Comments POC-GLUCOSE METER 100 mg/dL 70-110 TESTED AT [place] [address] (BANNER) (test code = NAOMIVA Ciro [facility] 1538) [address] POCT-GLUCOSE [id number] 01:48:00 Test Item Value Reference Range Interpretation Comments POC-GLUCOSE METER 186 mg/dL 70-110 H TESTED AT [place] [address] (BANNER) (test code = [facility] 1538) [address] BLOOD [id number] 00:00:00 Test Item Value Reference Range Interpretation Comments CULTURE (BANNER) (test No growth in 5 days code = 1095) POCT-GLUCOSE [id number] 21:54:00 Test Item Value Reference Range Interpretation Comments POC-GLUCOSE METER 232 mg/dL 70-110 H TESTED AT [place] [address] (BANNER) (test code = [facility] 1538) [address] POCT-GLUCOSE [id number] 18:20:00 Test Item Value Reference Range Interpretation Comments POC-GLUCOSE METER 223 mg/dL 70-110 H TESTED AT [place] [address] (BANNER) (test code = [facility] 1538) [address] POCT-GLUCOSE [id number] 10:25:00 Test Item Value Reference Range Interpretation Comments POC-GLUCOSE METER 230 mg/dL 70-110 H TESTED AT [place] [address] (BANNER) (test code = [facility] [employer] [facility] 1538) [address] BASIC METABOLIC [id number] 08:57:00 Test Item Value Reference Range Interpretation [...] 358) GLUCOSE RANDOM 56 mg/dL 70-105 L (BANNER) (test code = 652) CALCIUM (BANNER) 8.2 mg/dL 8.4-10.2 L (test code = 697) EGFR (BANNER) (test 146 mL/min/1.73 ESTIM ATED GFR IS code = 1092) sq m NOT ACCURATE CREATININE CLEARANCE IN PREDICTING GLOMERULAR FILTRATION RATE . ESTIMATED GFR I S NOT APPLICABLE FOR DIALYSIS PATIEN TS. POCT-GLUCOSE [id number] 08:43:00 Test Item Value Reference Range Interpretation Comments POC-GLUCOSE METER 68 mg/dL 70-110 L TESTED AT [place] [address] (BANNER) (test code = PAUL Tanner [facility] [address] 1538) POCT-GLUCOSE [id number] 01:17:00 Test Item Value Reference Range Interpretation Comments POC-GLUCOSE METER 160 mg/dL 70-110 H TESTED AT [place] [address] (BANNER) (test code = PAUL Tanner [facility] 1538) 8[address] POCT-GLUCOSE [id number] 19:47:00 Test Item Value Reference Range Interpretation Comments POC-GLUCOSE METER 193 mg/dL 70-110 H TESTED AT [place] [address] (BANNER) (test code = PAUL Tanner [facility] 1538) 94696 POCT-GLUCOSE [id number] 15:44:00 Test Item Value Reference Range Interpretation Comments POC-GLUCOSE METER 80 mg/dL 70-110 TESTED AT [place] [address] (BANNER) (test code = PAUL Tanner [facility] [address] 1538) POCT-GLUCOSE [id number] 14:11:00 Test Item Value Reference Range Interpretation Comments POC-GLUCOSE METER 78 mg/dL 70-110 TESTED AT [place] [address] (BANNER) (test code = PAUL Tanner [facility] [address] 1538) POCT-GLUCOSE [id number] 12:59:00 Test Item Value Reference Range Interpretation Comments POC-GLUCOSE METER 57 mg/dL 70-110 L Notified Ciro Polanco MD/TESTED AT (BANNER) (test code = [place] [address] [address] [address]38) [place] [address] POCT-GLUCOSE [id number] 12:21:00 Test Item Value Reference Range Interpretation Comments POC-GLUCOSE METER 67 mg/dL 70-110 L Notified Ciro Polanco MD/TESTED AT (BEAKER) (test code = [facility] [address] 1538) [facility] 7703 0 POCT-GLUCOSE [id number] 09:53:00 Test Item Value Reference Range Interpretation Comments POC-GLUCOSE METER 170 mg/dL 70-110 H TESTED AT [place] [id number] ([facility] (test code = PAUL Tanner [facility] 1538) [address] POCT-GLUCOSE [id number] 08:38:00 Test Item Value Reference Range Interpretation Comments POC-GLUCOSE METER 52 mg/dL 70-110 L Notified Ciro Polanco MD/TESTED AT (BEAKER) (test code = [place] [address] [address] 1538) [facility] 7703 0 BASIC METABOLIC [id number] 07:10:00 Test Item Value Reference Range Interpretation [...] APPLICABLE FOR DIALYSIS PATIEN TS. PROTEIN, RANDOM [id number] 22:37:00 Test Item Value Reference Range Interpretation Comments PROTEIN, URINE (BEAKER) (test code 235 mg/dL 0-14 H = 1569) CREATININE, RANDOM [id number] 22:35:00 Test Item Value Reference Range Interpretation Comments CREATININE URINE (BEAKER) (test 84.6 mg/dL code = 375) Reference Range: No NormalsPOCT-GLUCOSE [id number] 21:41:00 Test Item Value Reference Range Interpretation Comments POC-GLUCOSE METER 292 mg/dL 70-110 H TESTED AT [place] [address] (BANNER) (test code = PAUL Tanner [facility] 1538) 18324 POCT-GLUCOSE [id number] 17:51:00 Test Item Value Reference Range Interpretation Comments POC-GLUCOSE METER 241 mg/dL 70-110 H TESTED AT [place] [address] (BANNER) (test code = NAOMIVA Ciro [facility] 1538) 37055 POCT-GLUCOSE [id number] 12:32:00 Test Item Value Reference Range Interpretation Comments POC-GLUCOSE METER 123 mg/dL 70-110 H TESTED AT [place] [address] (BANNER) (test code = [facility] C[facility] 1538) 9[address]31 POCT-GLUCOSE [id number] 08:24:00 Test Item Value Reference Range Interpretation Comments POC-GLUCOSE METER 408 mg/dL 70-110 HH Notified R Collin STAPLETON/TESTED (BANNER) (test code = AT [address] 153) [facility] 7[address] 0 [id number] 07:32:00 Test Item Value Reference Range Interpretation Comments BLOOD UREA NITROGEN (BANNER) (test 15 mg/dL 05-14 code = 354) [id number] 07:32:00 Test Item Value Reference Range Interpretation Comments CREATININE (BANNER) 0.73 mg/dL 0.57-1.25 (test code = 358) EGFR (BANNER) (test 117 mL/min/1.73 ESTIM ATED GFR IS code = 1092) sq m NOT ACCURATE CREATININE CLEARANCE IN PREDICTING GLOMERULAR FILTRATION RATE . ESTIMATED GFR I S NOT APPLICABLE FOR DIALYSIS PATIEN TS. POCT-GLUCOSE [id number] 21:43:00 Test Item Value Reference Range Interpretation Comments POC-GLUCOSE METER 192 mg/dL 70-110 H TESTED AT [place] [address] (BANNER) (test code = [facility] 1538) [address]36 POCT-GLUCOSE [id number] 17:46:00 Test Item Value Reference Range Interpretation Comments POC-GLUCOSE METER 147 mg/dL 70-110 H TESTED AT [place] [address] (BANNER) (test code = PAUL Tanner [facility] 1538) [address]68 POCT-GLUCOSE [id number] 12:38:00 Test Item Value Reference Range Interpretation Comments POC-GLUCOSE METER 203 mg/dL 70-110 H TESTED AT [place] [id number] (BANNER) (test code = PAUL Tanner [facility] 1538) [address] HEMOGLOBIN [id number] 11:18:00 Test Item Value Reference Range Interpretation Comments HEMOGLOBIN A1C (BANNER) (test code = 16.1 % 4.3-6.1 H 368) POCT-GLUCOSE [id number] 09:15:00 Test Item Value Reference Range Interpretation Comments POC-GLUCOSE METER 330 mg/dL 70-110 H Notified R Collin STAPLETON/TESTED (BANNER) (test code = AT [address] 153) [facility] 7[address] 0 [id number] 07:34:00 Test Item Value Reference Range Interpretation Comments CREATININE (BEAKER) 0.83 mg/dL 0.57-1.25 Specimen slightly (test code = 358) hemolyzed EGFR (BANNER) (test 101 mL/min/1.73 ESTIM ATED GFR IS code = 1092) sq m NOT ACCURATE CREATININE CLEARANCE IN PREDICTING GLOMERULAR FILTRATION RATE . ESTIMATED GFR I S NOT APPLICABLE FOR DIALYSIS PATIEN TS. [id number] 07:34:00 Test Item Value Reference Range Interpretation Comments BLOOD UREA NITROGEN (BEAKER) (test 15 mg/dL 7-21 code = 354) POCT-GLUCOSE [id number] 01:59:00 Test Item Value Reference Range Interpretation Comments POC-GLUCOSE METER 78 mg/dL 70-110 TESTED AT [place] [id number] (BANNER) (test code = PAUL Tanner [facility] [address] 1538) BASIC METABOLIC [id number] 23:00:00 Test Item Value Reference Range Interpretation [...] NOT APPLICABLE FOR DIALYSIS PATIEN TS. POCT-GLUCOSE [id number] 21:22:00 Test Item Value Reference Range Interpretation Comments POC-GLUCOSE METER > mg/dL 70-110 HH OUTSIDE [place] ASURING (BEAKER) (test code RANGENot ified JORDON MD/TESTED = 1538) AT [facility] [address] [facility] 7703 0 RESPIRATORY PANEL [id number] 18:44:00 Test Item Value Reference Range Interpretation [...] detected Not detected, (BEAKER) (test code = 5280) Equivocal ADENOVIRUS (BEAKER) (test Not detected Not [...] [facility] Molecular Diagnostics Laboratory using the [employer] Respiratory Panel. It is FDA cleared and has been verified and approved by the [facility] Diagnostics Laboratory for clinical use on nasal swab specimens. It is not FDA-cleared for use on bronchial wash/lavage samples. However, for this sample type, validation was performed and test characteristics were determined and approved, by [facility] laboratory for clinical use under the Clinical Laboratory Improvement Amendments (CLIA) of 1988 requirements. Therefore, FDA clearance isnot required. This laboratory is CLIA- certified and [employer] (CAP)-accredited to perform high complexity testing.POCT-GLUCOSE [id number] 18:36:00 Test Item Value Reference Range Interpretation Comments POC-GLUCOSE METER > mg/dL 70-110 HH OUTSIDE [place] ASURING (BANNER) (test code RANGETES MAGDALENO AT [place] [address] = 1538) [facility] [address] SPIN/CONCENTRATION [id number] 12:46:00 Test Item Value Reference Range Interpretation Comments CONCENTRATION CHARGED (BANNER) (test Done code = 2657) POCT-GLUCOSE [id number] 12:21:00 Test Item Value Reference Range Interpretation Comments POC-GLUCOSE METER 286 mg/dL 70-110 H TESTED AT [place] [address] (BANNER) (test code = PAUL Tanner [facility] 1538) [address] POCT-GLUCOSE [id number] 08:25:00 Test Item Value Reference Range Interpretation Comments POC-GLUCOSE METER 295 mg/dL 70-110 H TESTED AT [place] [id number] (BANNER) (test code = PAUL Ciro [facility] 1538) [address] [id number] 07:37:00 Test Item Value Reference Range Interpretation Comments BLOOD UREA NITROGEN (BANNER) (test 5 mg/dL 7-21 L code = 354) [id number] 07:37:00 Test Item Value Reference Range Interpretation Comments CREATININE (BANNER) 0.64 mg/dL 0.57-1.25 Specimen slightly (test code = 358) hemolyzed EGFR (BANNER) (test 136 mL/min/1.73 ESTIM ATED GFR IS code = 1092) sq m NOT ACCURATE CREATININE CLEARANCE IN PREDICTING GLOMERULAR FILTRATION RATE . ESTIMATED GFR I S NOT APPLICABLE FOR DIALYSIS PATIEN TS. POCT-GLUCOSE [id number] 06:33:00 Test Item Value Reference Range Interpretation Comments POC-GLUCOSE METER 44 mg/dL 70-110 L Notified Ciro Polanco MD/TESTED AT (BANNER) (test code = [place] [address]) [facility] 7703 0 POCT-GLUCOSE [id number] 03:10:00 Test Item Value Reference Range Interpretation Comments POC-GLUCOSE METER 406 mg/dL 70-110 HH Notified Ciro Polanco MD/TESTED (BANNER) (test code = AT [place] [address]) [facility] 7703 0 RAD, CHEST, 2 [id number] 22:01:00Reason for exam:->COUGHReason for exam:->SHORTNESS OF BREATHShould [...] MDReport Verified Date/Time: 08/15/2018 22:01:46 Reading Location: [facility] Reading Room PREGNANCY SCREEN, [id number] 21:12:00 Test Item Value Reference Range Interpretation Comments TEST URINE (BEAKER) (test Negative code = 583) COMPREHENSIVE METABOLIC [id number] 17:43:00 Test Item Value Reference Range Interpretation [...] APPLICABLE FOR DIALYSIS PATIEN TS. POCT-LACTIC ACID, [id number] 17:20:00 Test Item Value Reference Range Interpretation Comments POC-LACTIC ACID, 1.4 mmol/L 0.9-1.7 TESTED AT [facility] [address] (BEAKER) (test [place] code = 2805) [address] CBC W/PLT COUNT & AUTO [id number] 17:20:00 Test Item Value Reference Range Interpretation [...] ABSOLUTE COUNT 0.44 K/ L 0.04-0.36 H (BANNER) (test code = 416) BASOPHILS ABSOLUTE COUNT (AKER) 0.05 K/ L 0.01-0.08 (test code = 417) IMMATURE GRANULOCYTES-RELATIVE 0 % 0-1 PERCENT (BANNER) (test code = 2801) AFB CULTURE + [id number] 13:38:00 Test Item Value Reference Range Interpretation Comments CULTURE (BANNER) (test No acid-fast bacilli code = 1095) isolated in 42 days AFB SMEAR (BANNER) No acid fast bacilli (test code = 994) seen POCT-GLUCOSE [id number] 08:03:00 Test Item Value Reference Range Interpretation Comments POC-GLUCOSE METER 169 mg/dL 70-110 H TESTED AT [place] [address] (BANNER) (test code = [employer] [facility] 1538) [address] BUN AND [id number] 06:31:00 Test Item Value Reference Range Interpretation Comments BLOOD UREA NITROGEN 25 mg/dL 7-21 H (BANNER) (test code = 354) CREATININE (BANNER) 0.70 mg/dL 0.57-1.25 (test code = 358) EGFR (BANNER) (test 124 mL/min/1.73 ESTIM ATED GFR IS code = 1092) sq m NOT ACCURATE CREATININE CLEARANCE IN PREDICTING GLOMERULAR FILTRATION RATE . ESTIMATED GFR I S NOT APPLICABLE FOR DIALYSIS PATIEN TS. POCT-GLUCOSE [id number] 23:55:00 Test Item Value Reference Range Interpretation Comments POC-GLUCOSE METER 179 mg/dL 70-110 H TESTED AT [place] [address] (BANNER) (test code = [employer] [facility] 1538) [address] POCT-GLUCOSE [id number] 17:30:00 Test Item Value Reference Range Interpretation Comments POC-GLUCOSE METER 216 mg/dL 70-110 H TESTED AT [place] [address] (BANNER) (test code = [employer] [facility] 1538) [address] POCT-GLUCOSE [id number] 11:49:00 Test Item Value Reference Range Interpretation Comments POC-GLUCOSE METER 97 mg/dL 70-110 TESTED AT [place] [address] (BANNER) (test code = PAUL Tanner [facility] [address] 1538) POCT-GLUCOSE [id number] 08:09:00 Test Item Value Reference Range Interpretation Comments POC-GLUCOSE METER 72 mg/dL 70-110 TESTED AT [place] [address] (BANNER) (test code = PAUL Tanner [facility] [address] 1538) BUN AND [id number] 08:08:00 Test Item Value Reference Range Interpretation Comments BLOOD UREA NITROGEN 23 mg/dL 7-21 H (BANNER) (test code = 354) CREATININE (BANNER) 0.62 mg/dL 0.57-1.25 (test code = 358) EGFR (BANNER) (test 142 mL/min/1.73 ESTIM ATED GFR IS code = 1092) sq m NOT ACCURATE CREATININE CLEARANCE IN PREDICTING GLOMERULAR FILTRATION RATE . ESTIMATED GFR I S NOT APPLICABLE FOR DIALYSIS ADELIA TS. POCT-GLUCOSE [id number] 21:04:00 Test Item Value Reference Range Interpretation Comments POC-GLUCOSE METER 143 mg/dL 70-110 H TESTED AT [place] [address] ([facility]) (test code = [facility] 1538) [id number] POCT-GLUCOSE [id number] 17:36:00 Test Item Value Reference Range Interpretation Comments POC-GLUCOSE METER 195 mg/dL 70-110 H TESTED AT [place] [address] ([facility]) (test code = [facility] 1538) [id number] POCT-GLUCOSE [id number] 12:58:00 Test Item Value Reference Range Interpretation Comments POC-GLUCOSE METER 73 mg/dL 70-110 TESTED AT [place] [address] ([facility]) (test code = [facility] [id number] 1538) POCT-GLUCOSE [id number] 08:07:00 Test Item Value Reference Range Interpretation Comments POC-GLUCOSE METER 320 mg/dL 70-110 H Notified Ciro Polanco or ([facility]) (test code = Patien t refused repeat 1538) test/TESTED AT [place] [address] [facility] [id number] BUN AND [id number] 07:07:00 Test Item Value Reference Range Interpretation Comments BLOOD UREA NITROGEN 25 mg/dL 7-21 H ([facility]) (test code = 354) CREATININE ([facility]) 0.92 mg/dL 0.57-1.25 Specimen slightly (test code = 358) hemolyzed EGFR ([facility]AK[facility]) (test 90 mL/min/1.73 ESTIMA MAGDALENO GFR IS code = 1092) sq m NOT ACCURATE CREATININE CLEARANCE IN PREDICTING GLOMERULAR FILTRATION RATE . ESTIMATED GFR I S NOT APPLICABLE FOR DIALYSIS PATIEN TS. CBC W/PLT COUNT & AUTO [id number] 06:10:00 Test Item Value Reference Range Interpretation [...] PERCENT (BEAKER) (test code = 2801) POCT-GLUCOSE [id number] 22:03:00 Test Item Value Reference Range Interpretation Comments POC-GLUCOSE METER 96 mg/dL 70-110 TESTED AT [place] [address] ([facility]) (test code = PAUL Tanner [facility] [address] 1538) POCT-GLUCOSE [id number] 21:57:00 Test Item Value Reference Range Interpretation Comments POC-GLUCOSE METER 67 mg/dL 70-110 L Notified R Collin STAPLETON/TESTED AT ([facility]) (test code = [address] 1538) [facility] 7[address] 0 POCT-GLUCOSE [id number] 17:48:00 Test Item Value Reference Range Interpretation Comments POC-GLUCOSE METER 210 mg/dL 70-110 H TESTED AT [place] [address] ([facility]) (test code = PAUL Tanner [facility] 1538) [address] POCT-GLUCOSE [id number] 12:42:00 Test Item Value Reference Range Interpretation Comments POC-GLUCOSE METER 193 mg/dL 70-110 H TESTED AT [place] [address] ([facility]) (test code = PAUL Tanner [facility] 1538) [address] POCT-GLUCOSE [id number] 08:38:00 Test Item Value Reference Range Interpretation Comments POC-GLUCOSE METER 139 mg/dL 70-110 H TESTED AT [place] [address] ([facility]) (test code = PAUL Tanner [facility] 1538) [address] BASIC METABOLIC [id number] 06:31:00 Test Item Value Reference Range Interpretation [...] APPLICABLE FOR DIALYSIS PATIEN TS. BUN AND [id number] 06:30:00 Test Item Value Reference Range Interpretation [...] PATIEN TS. CBC W/PLT COUNT & AUTO [id number] 06:11:00 Test Item Value Reference Range Interpretation [...] ABSOLUTE COUNT 0.01 K/ L 0.04-0.36 L (BEAKER) (test code = 416) BASOPHILS ABSOLUTE COUNT (BEAKER) 0.02 K/ L 0.01-0.08 (test code = 417) IMMATURE GRANULOCYTES-RELATIVE 1 % 0-1 PERCENT (BEAKER) (test code = 2807) POCT-GLUCOSE [id number] 21:38:00 Test Item Value Reference Range Interpretation Comments POC-GLUCOSE METER 266 mg/dL 70-110 H TESTED AT [place] [address] ([facility]) (test code = PAUL [place] 1538) [address] POCT-GLUCOSE [id number] 17:38:00 Test Item Value Reference Range Interpretation Comments POC-GLUCOSE METER 213 mg/dL 70-110 H TESTED AT [place] [address] ([facility]) (test code = [place] 1538) [address] POCT-GLUCOSE [id number] 13:23:00 Test Item Value Reference Range Interpretation Comments POC-GLUCOSE METER 272 mg/dL 70-110 H TESTED AT [place] [address] ([facility]) (test code = PAUL [place] 1538) [address] POCT-GLUCOSE [id number] 11:56:00 Test Item Value Reference Range Interpretation Comments POC-GLUCOSE METER 120 mg/dL 70-110 H TESTED AT [facility] 6720 ([facility]) (test code = PAUL Tanner [place] 1538) [address] POCT-GLUCOSE [id number] 08:20:00 Test Item Value Reference Range Interpretation Comments POC-GLUCOSE METER 88 mg/dL 70-110 TESTED AT [facility] 6720 ([facility]) (test code = APUL Tanner [facility] [address] 1538) BUN AND [id number] 05:59:00 Test Item Value Reference Range Interpretation [...] PATIEN TS. CBC W/PLT COUNT & AUTO [id number] 05:24:00 Test Item Value Reference Range Interpretation [...] PERCENT (BEAKER) (test code = 2801) POCT-GLUCOSE [id number] 20:50:00 Test Item Value Reference Range Interpretation Comments POC-GLUCOSE METER 260 mg/dL 70-110 H TESTED AT [place] [address] (BEAKER) (test code = [facility] 1538) [address] POCT-GLUCOSE [id number] 17:30:00 Test Item Value Reference Range Interpretation Comments POC-GLUCOSE METER 208 mg/dL 70-110 H TESTED AT [place] [address] (BEAKER) (test code = [facility] 1538) [address] POCT-GLUCOSE [id number] 12:51:00 Test Item Value Reference Range Interpretation Comments POC-GLUCOSE METER 125 mg/dL 70-110 H TESTED AT [place] [address] (BEAKER) (test code = [facility] 1538) [address] BASIC METABOLIC [id number] 12:22:00 Test Item Value Reference Range Interpretation [...] PATIEN TS. CBC W/PLT COUNT & AUTO [id number] 12:07:00 Test Item Value Reference Range Interpretation [...] PERCENT (BEAKER) (test code = 2801) POCT-GLUCOSE [id number] 11:57:00 Test Item Value Reference Range Interpretation Comments POC-GLUCOSE METER 59 mg/dL 70-110 L Will Repea t Test/TESTED (BEAKER) (test code = AT [facility] [address] 1538) [facility] 7703 0 RAD, CHEST, 1 VIEW, NON [id number] 11:31:00Reason for exam:->interval change in upper lobe [...] of unclear clinical significance. Signed: Tripp Jones [facility] Verified Date/Time: 06/26/2018 11:31:01 Reading Location: [facility] B1 C013X Ortho Consult Reading Room RAD, ABDOMEN/KUB, 1 VIEW [id number] 11:31:00Reason for exam:->assess for stool burdenShould this [...] MDReport Verified Date/Time: 06/26/2018 11:31:01 Reading Location: [facility] B1 C013X Ortho Consult Reading Room POCT-GLUCOSE [id number] 08:23:00 Test Item Value Reference Range Interpretation Comments POC-GLUCOSE METER 109 mg/dL 70-110 TESTED AT [facility] 6720 ([facility]) (test code = PAUL Tanner [facility] 1538) [address] LACTIC ACID, VENOUS, WHOLE [id number] 06:39:00 Test Item Value Reference Range Interpretation Comments LACTATE BLOOD VENOUS (2) ([facility]) 1.1 mmol/L 0.5-2.2 (test code = 2872) Effective 02/26/2016: Units/Reference Range ChangeNew: 0.5-2.2 mmol/L Previous: 5-20 mg/dLBUN AND [id number] 06:08:00 Test Item Value Reference Range Interpretation Comments BLOOD UREA NITROGEN 25 mg/dL 7-21 H ([facility]) (test code = 354) CREATININE ([facility]) 0.70 mg/dL 0.57-1.25 (test code = 358) EGFR ([facility]) (test 124 mL/min/1.73 ESTIM ATED GFR IS code = 1092) sq m NOT ACCURATE CREATININE CLEARANCE IN PREDICTING GLOMERULAR FILTRATION RATE . ESTIMATED GFR I S NOT APPLICABLE FOR DIALYSIS PATIEN TS. POCT-GLUCOSE [id number] 05:27:00 Test Item Value Reference Range Interpretation Comments POC-GLUCOSE METER 120 mg/dL 70-110 H TESTED AT [place] [address] ([facility]) (test code = PAUL Tanner [facility] 1538) [address] POCT-GLUCOSE [id number] 21:14:00 Test Item Value Reference Range Interpretation Comments POC-GLUCOSE METER 216 mg/dL 70-110 H TESTED AT [place] [address] ([facility]) (test code = PAUL Tanner [facility] 1538) [address] POCT-GLUCOSE [id number] 17:08:00 Test Item Value Reference Range Interpretation Comments POC-GLUCOSE METER 197 mg/dL 70-110 H TESTED AT [place] [address] ([facility]) (test code = PAUL Tanner [facility] 1538) [address] POCT-GLUCOSE [id number] 11:51:00 Test Item Value Reference Range Interpretation Comments POC-GLUCOSE METER 160 mg/dL 70-110 H TESTED AT [place] [address] ([facility]) (test code = PAUL Tanner [facility] 1538) 18982 POCT-GLUCOSE [id number] 08:13:00 Test Item Value Reference Range Interpretation Comments POC-GLUCOSE METER 376 mg/dL 70-110 H Notified Ciro Polanco MD/TESTED ([facility]) (test code = AT [address] 1538) [facility] 7[address] 0 BUN AND [id number] 07:14:00 Test Item Value Reference Range Interpretation Comments BLOOD UREA NITROGEN 28 mg/dL 7-21 H ([facility]) (test code = 354) CREATININE ([facility]) 0.76 mg/dL 0.57-1.25 (test code = 358) EGFR ([facility]) (test 112 mL/min/1.73 ESTIM ATED GFR IS code = 1092) sq m NOT ACCURATE CREATININE CLEARANCE IN PREDICTING GLOMERULAR FILTRATION RATE . ESTIMATED GFR I S NOT APPLICABLE FOR DIALYSIS PATIEN TS. POCT-GLUCOSE [id number] 22:17:00 Test Item Value Reference Range Interpretation Comments POC-GLUCOSE METER 163 mg/dL 70-110 H TESTED AT [place] [id number] ([facility]) (test code = PAUL Tanner [facility] 1538) [address] POCT-GLUCOSE [id number] 16:46:00 Test Item Value Reference Range Interpretation Comments POC-GLUCOSE METER 301 mg/dL 70-110 H TESTED AT [facility] 6720 ([facility]) (test code = PAUL Tanner [facility] 1538) [address] POCT-GLUCOSE [id number] 12:12:00 Test Item Value Reference Range Interpretation Comments POC-GLUCOSE METER 400 mg/dL 70-110 HH Notified R Collin MD/TESTED ([facility]) (test code = AT [facility] [address] 1538) [facility] 7703 0 POCT-GLUCOSE [id number] 07:42:00 Test Item Value Reference Range Interpretation Comments POC-GLUCOSE METER 65 mg/dL 70-110 L Notified R Collin MD/TESTED AT ([facility]) (test code = [place] [address]) [facility] 7703 0 BUN AND [id number] 06:26:00 Test Item Value Reference Range Interpretation Comments BLOOD UREA NITROGEN 27 mg/dL 7-21 H ([facility]) (test code = 354) CREATININE ([facility]) 0.70 mg/dL 0.57-1.25 (test code = 358) EGFR ([facility]) (test 124 mL/min/1.73 ESTIM ATED GFR IS code = 1092) sq m NOT ACCURATE CREATININE CLEARANCE IN PREDICTING GLOMERULAR FILTRATION RATE . ESTIMATED GFR I S NOT APPLICABLE FOR DIALYSIS PATIEN TS. CF RESPIRATORY [id number] 02:48:00 Test Item Value Reference Range Interpretation Comments CULTURE ([facility]) PSEUDOMONAS A 3+ Pseudomo viki (test code [...] = 25) Resistant <0 or >4 CULTURE ([facility]) PSEUDOMONAS A 3+ Pseudomo viki (test code [...] or >4 4+ Normal respiratory derick presentPOCT-GLUCOSE [id number] 21:45:00 Test Item Value Reference Range Interpretation Comments POC-GLUCOSE METER 153 mg/dL 70-110 H TESTED AT [facility] 67 (REES46) (test code = PAUL Ciro [place] 1538) [address] POCT-GLUCOSE [id number] 17:25:00 Test Item Value Reference Range Interpretation Comments POC-GLUCOSE METER 237 mg/dL 70-110 H TESTED AT [place] [address] ([facility]) (test code = PAUL Tanner [facility] 1538) 55339 POCT-GLUCOSE [id number] 11:39:00 Test Item Value Reference Range Interpretation Comments POC-GLUCOSE METER 126 mg/dL 70-110 H TESTED AT [place] [address] ([facility]) (test code = PAUL Tanner [place] 249868) [address] BUN AND [id number] 07:39:00 Test Item Value Reference Range Interpretation Comments BLOOD UREA NITROGEN 33 mg/dL 7-21 H ([facility]) (test code = 354) CREATININE ([facility]) 0.84 mg/dL 0.57-1.25 (test code = 358) EGFR ([facility]) (test 100 mL/min/1.73 ESTIM ATED GFR IS code = 1092) sq m NOT ACCURATE CREATININE CLEARANCE IN PREDICTING GLOMERULAR FILTRATION RATE . ESTIMATED GFR I S NOT APPLICABLE FOR DIALYSIS PATIEN TS. POCT-GLUCOSE [id number] 07:30:00 Test Item Value Reference Range Interpretation Comments POC-GLUCOSE METER 424 mg/dL 70-110 HH Notified R N MD/TESTED ([facility]) (test code = AT [place] [address]) [facility] 7703 0 POCT-GLUCOSE [id number] 21:36:00 Test Item Value Reference Range Interpretation Comments POC-GLUCOSE METER 241 mg/dL 70-110 H TESTED AT [place] [address] ([facility]) (test code = PAUL Tanner [place] 249868) [address] POCT-GLUCOSE [id number] 17:03:00 Test Item Value Reference Range Interpretation Comments POC-GLUCOSE METER 405 mg/dL 70-110 HH Baby teste d Mother ID ([facility]) (test code = used/T ESTED AT [place] [address]) [address] [facility] [address] POCT-GLUCOSE [id number] 14:17:00 Test Item Value Reference Range Interpretation Comments POC-GLUCOSE METER 81 mg/dL 70-110 TESTED AT [place] [address] ([facility]) (test code = PAUL Tanner [facility] [address] 1538) HEMOGLOBIN [id number] 09:17:00 Test Item Value Reference Range Interpretation Comments HEMOGLOBIN A1C ([facility]) (test code = 13.9 % 4.3-6.1 H 368) POCT-GLUCOSE [id number] 07:56:00 Test Item Value Reference Range Interpretation Comments POC-GLUCOSE METER 226 mg/dL 70-110 H TESTED AT [place] [address] ([facility]) (test code = PAUL Tanner [facility] 1538) [address]296 BUN AND [id number] 06:35:00 Test Item Value Reference Range Interpretation Comments BLOOD UREA NITROGEN 25 mg/dL 7-21 H ([facility]) (test code = 354) CREATININE ([facility]) 0.74 mg/dL 0.57-1.25 (test code = 358) EGFR ([facility]) (test 116 mL/min/1.73 ESTIM ATED GFR IS code = 1092) sq m NOT ACCURATE CREATININE CLEARANCE IN PREDICTING GLOMERULAR FILTRATION RATE . ESTIMATED GFR I S NOT APPLICABLE FOR DIALYSIS PATIEN TS. POCT-GLUCOSE [id number] 21:56:00 Test Item Value Reference Range Interpretation Comments POC-GLUCOSE METER 347 mg/dL 70-110 H Notified R Collin STAPLETON/TESTED ([facility]) (test code = AT [place] [address]69448) [facility] 7703 0 POCT-GLUCOSE [id number] 17:05:00 Test Item Value Reference Range Interpretation Comments POC-GLUCOSE METER 163 mg/dL 70-110 H TESTED AT [place] [address] ([facility]) (test code = [facility] Ciro [facility] 1538) [address]54 POCT-GLUCOSE [id number] 12:36:00 Test Item Value Reference Range Interpretation Comments POC-GLUCOSE METER 124 mg/dL 70-110 H TESTED AT [place] [address] ([facility]) (test code = [facility] Ciro [facility] 1538) 27218 POCT-GLUCOSE [id number] 07:25:00 Test Item Value Reference Range Interpretation Comments POC-GLUCOSE METER 161 mg/dL 70-110 H TESTED AT [place] [address] ([facility]) (test code = [facility] 1538) 6[address]64 BUN AND [id number] 03:23:00 Test Item Value Reference Range Interpretation Comments BLOOD UREA NITROGEN 23 mg/dL 7-21 H ([facility]) (test code = 354) CREATININE ([facility]) 0.75 mg/dL 0.57-1.25 (test code = 358) EGFR ([facility]) (test 114 mL/min/1.73 ESTIM ATED GFR IS code = 1092) sq m NOT ACCURATE CREATININE CLEARANCE IN PREDICTING GLOMERULAR FILTRATION RATE . ESTIMATED GFR I S NOT APPLICABLE FOR DIALYSIS PATIEN TS. POCT-GLUCOSE [id number] 21:35:00 Test Item Value Reference Range Interpretation Comments POC-GLUCOSE METER 126 mg/dL 70-110 H TESTED AT [place] [address] ([facility]) (test code = PAUL Tanner [facility] 1538) 64684 POCT-GLUCOSE [id number] 17:43:00 Test Item Value Reference Range Interpretation Comments POC-GLUCOSE METER 229 mg/dL 70-110 H TESTED AT [place] [address] ([facility]) (test code = PAUL Tanner [facility] 1538) 71053 POCT-GLUCOSE [id number] 13:02:00 Test Item Value Reference Range Interpretation Comments POC-GLUCOSE METER 155 mg/dL 70-110 H TESTED AT [place] [address] ([facility]) (test code = PAUL Tanner [facility] 1538) 98232 POCT-GLUCOSE [id number] 09:12:00 Test Item Value Reference Range Interpretation Comments POC-GLUCOSE METER 252 mg/dL 70-110 H TESTED AT [place] [address] ([facility]) (test code = PAUL Tanner [facility] 1538) 15679 POCT-GLUCOSE [id number] 08:38:00 Test Item Value Reference Range Interpretation Comments POC-GLUCOSE METER 58 mg/dL 70-110 L Notified R Collin STAPLETON/TESTED AT ([facility]) (test code = [place] [address]64728) [facility] 7703 0 BLOOD [id number] 06:00:00 Test Item Value Reference Range Interpretation Comments CULTURE (BEAKER) (test No growth in 5 days code = 1095) BLOOD [id number] 06:00:00 Test Item Value Reference Range Interpretation Comments CULTURE (BEAKER) (test No growth in 5 days code = 1095) POCT-GLUCOSE [id number] 21:09:00 Test Item Value Reference Range Interpretation Comments POC-GLUCOSE METER 365 mg/dL 70-110 H Notified R Collin STAPLETON/TESTED ([facility]) (test code = AT [place] [address]) [facility] 7703 0 POCT-GLUCOSE [id number] 18:57:00 Test Item Value Reference Range Interpretation Comments POC-GLUCOSE METER 395 mg/dL 70-110 H TESTED AT [facility] 6720 ([facility]) (test code = PAUL Tanner [facility] 1538) 83971 POCT-GLUCOSE [id number] 14:19:00 Test Item Value Reference Range Interpretation Comments POC-GLUCOSE METER 387 mg/dL 70-110 H Notified R Collin MD/TESTED ([facility]) (test code = AT [facility] [address] 1538) [facility] 7703 0 SPUTUM CULTURE + GRAM [id number] 09:38:00 Test Item Value Reference Range Interpretation Comments CULTURE (BEAKER) (test See comment code = 1095) GRAM STAIN RESULT 1+ WBCs (BEAKER) (test code = 1123) GRAM STAIN RESULT 0-5 epithelial cells (BEAKER) (test code = 32010) GRAM STAIN RESULT No organisms seen (BEAKER) (test code = 305178) Please refer to CF respiratory culture for results. Charges for this culture and gram stain are credited.POCT-GLUCOSE [id number] 09:12:00 Test Item Value Reference Range Interpretation Comments POC-GLUCOSE METER 41 mg/dL 70-110 L Baby teste d Mother ID ([facility]) (test code = used/T ESTED AT [facility] 1538) [address] [facility] [address] BASIC METABOLIC [id number] 05:17:00 Test Item Value Reference Range Interpretation [...] NOT APPLICABLE FOR DIALYSIS PATIEN TS. POCT-GLUCOSE [id number] 22:15:00 Test Item Value Reference Range Interpretation Comments POC-GLUCOSE METER 329 mg/dL 70-110 H Notified R Collin STAPLETON/TESTED ([facility]) (test code = AT [address] 1538) [facility] 7703 0 POCT-GLUCOSE [id number] 20:47:00 Test Item Value Reference Range Interpretation Comments POC-GLUCOSE METER 432 mg/dL 70-110 HH Notified R N MD/TESTED ([facility]) (test code = AT [address] 1538) [facility] 7703 0 POCT-GLUCOSE [id number] 18:31:00 Test Item Value Reference Range Interpretation Comments POC-GLUCOSE METER 296 mg/dL 70-110 H TESTED AT [place] [address] ([facility]) (test code = NAOMITAYO Tanner [facility] 1538) 99596 POCT-GLUCOSE [id number] 18:08:00 Test Item Value Reference Range Interpretation Comments POC-GLUCOSE METER 198 mg/dL 70-110 H TESTED AT [place] [address] ([facility]) (test code = PAUL Ciro [facility] 1538) 02884 POCT-GLUCOSE [id number] 18:08:00 Test Item Value Reference Range Interpretation Comments POC-GLUCOSE METER 46 mg/dL 70-110 L TESTED AT [place] [address] ([facility]) (test code = PAUL Ciro [facility] [address] 1538) POCT-GLUCOSE [id number] 12:42:00 Test Item Value Reference Range Interpretation Comments POC-GLUCOSE METER 71 mg/dL 70-110 TESTED AT [place] [address] ([facility]) (test code = PAUL Tanner [facility] [address] 1538) TROPONIN [id number] 10:01:00 Test Item Value Reference Range Interpretation Comments TROPONIN I ([facility]) (test code = 397) < ng/mL 0.00-0.03 [...] acute neurological disease, and persistent tachyarrhythmia.BASIC METABOLIC [id number] 09:53:00 Test Item Value Reference Range Interpretation [...] NOT APPLICABLE FOR DIALYSIS PATIEN TS. POCT-GLUCOSE [id number] 08:49:00 Test Item Value Reference Range Interpretation Comments POC-GLUCOSE METER 168 mg/dL 70-110 H TESTED AT [place] [address] ([facility]) (test code = PAUL Tanner [facility] 1538) 61719 POCT-GLUCOSE [id number] 20:59:00 Test Item Value Reference Range Interpretation Comments POC-GLUCOSE METER 218 mg/dL 70-110 H TESTED AT [place] [id number] ([facility]) ([facility] 1538) 7[address] POCT-GLUCOSE [id number] 17:20:00 Test Item Value Reference Range Interpretation Comments POC-GLUCOSE METER 259 mg/dL 70-110 H TESTED AT [facility] 6720 ([facility]) (test code = PAUL Tanner [facility] 1538) 56746 POCT-GLUCOSE [id number] 15:10:00 Test Item Value Reference Range Interpretation Comments POC-GLUCOSE METER 263 mg/dL 70-110 H TESTED AT [place] [address] ([facility]) (test code = PAUL Tanner [facility] 1538) 74154 POCT-GLUCOSE [id number] 08:12:00 Test Item Value Reference Range Interpretation Comments POC-GLUCOSE METER 126 mg/dL 70-110 H TESTED AT [place] [address] ([facility]) (test code = NAOMIVA Ciro [facility] 1538) 88196 BASIC METABOLIC [id number] 06:51:00 Test Item Value Reference Range Interpretation [...] NOT APPLICABLE FOR DIALYSIS PATIEN TS. POCT-GLUCOSE [id number] 21:02:00 Test Item Value Reference Range Interpretation Comments POC-GLUCOSE METER 192 mg/dL 70-110 H TESTED AT [place] [address] ([facility]) (test code = [facility] Ciro [facility] 1538) 86225 POCT-GLUCOSE [id number] 16:18:00 Test Item Value Reference Range Interpretation Comments POC-GLUCOSE METER 199 mg/dL 70-110 H TESTED AT [place] [address] ([facility]) (test code = [facility] Ciro [facility] 1538) 69498 POCT-GLUCOSE [id number] 14:34:00 Test Item Value Reference Range Interpretation Comments POC-GLUCOSE METER 332 mg/dL 70-110 H TESTED AT [place] [address] ([facility]) (test code = [facility] 1538) 81373 POCT-GLUCOSE [id number] 11:37:00 Test Item Value Reference Range Interpretation Comments POC-GLUCOSE METER 305 mg/dL 70-110 H Notified Ciro Polanco MD/TESTED (BEAKER) (test code = AT [address] 1538) [facility] 7703 0 POCT-GLUCOSE [id number] 10:22:00 Test Item Value Reference Range Interpretation Comments POC-GLUCOSE METER 322 mg/dL 70-110 H Notified Ciro Polanco MD/TESTED (BEAKER) (test code = AT [place] 069448) [facility] 7703 0 BASIC METABOLIC [id number] 09:42:00 Test Item Value Reference Range Interpretation [...] 358) GLUCOSE RANDOM 149 mg/dL 70-105 H (BEAKER) (test code = 652) CALCIUM (BEAKER) 8.9 mg/dL 8.4-10.2 (test code = 697) EGFR (BEAKER) (test 135 mL/min/1.73 ESTIM ATED GFR IS code = 1092) sq m NOT ACCURATE CREATININE CLEARANCE IN PREDICTING GLOMERULAR FILTRATION RATE . ESTIMATED GFR I S NOT APPLICABLE FOR DIALYSIS PATIEN TS. POCT-GLUCOSE [id number] 09:24:00 Test Item Value Reference Range Interpretation Comments POC-GLUCOSE METER 169 mg/dL 70-110 H TESTED AT [place] [id number] ([facility]) (test code = PAUL Tanner [facility] 1538) 76739 POCT-GLUCOSE [id number] 08:27:00 Test Item Value Reference Range Interpretation Comments POC-GLUCOSE METER 176 mg/dL 70-110 H TESTED AT [place] [id number] ([facility]) (test code = PAUL Tanner [facility] 1538) 58205 POCT-GLUCOSE [id number] 06:58:00 Test Item Value Reference Range Interpretation Comments POC-GLUCOSE METER 214 mg/dL 70-110 H TESTED AT [facility] 6720 (BEAKER) (test code = PAUL [place] 1538) [address] RESPIRATORY PANEL [id number] 06:36:00 Test Item Value Reference Range Interpretation [...] laboratory is CLIA- certified and [employer] (CAP)-accredited to perform high complexity testing.Other [...] test characteristics were determined and approved, by [facility] for clinical use under the Clinical Laboratory Improvement Amendments (CLIA) of 1988 requirements. Therefore, FDA clearance is not required. This laboratory is CLIA-certified and [employer] of[employer] (CAP)-accredited to perform high complexity testing.POCT-GLUCOSE [id number] 05:59:00 Test Item Value Reference Range Interpretation Comments POC-GLUCOSE METER 214 mg/dL 70-110 H TESTED AT [facility] [address] (SIMI) (test code = [place] 1538) [id number] 05:19:00 Test Item Value Reference Range Interpretation Comments MAGNESIUM (SIMI) (test code = 1.7 mg/dL 1.6-2.6 627) If last glucose was less than 500, may do bedside glucose instead of serum glucose.[id number] 05:19:00 Test Item Value Reference Range Interpretation Comments GLUCOSE RANDOM (BEAKER) (test code 265 mg/dL 70-105 H = 652) If last glucose was less than 500, may do bedside glucose instead of serum glucose.BASIC METABOLIC [id number] 05:19:00 Test Item Value Reference Range Interpretation [...] do bedside glucose instead of serum glucose.POCT-GLUCOSE [id number] 04:46:00 Test Item Value Reference Range Interpretation Comments POC-GLUCOSE METER 272 mg/dL 70-110 H TESTED AT [place] [address] ([place]ANNER) ([facility] [place] [facility] [id number] POCT-GLUCOSE [id number] 03:44:00 Test Item Value Reference Range Interpretation Comments POC-GLUCOSE METER 326 mg/dL 70-110 H TESTED AT [place] [address] ([place]) (test code = [place] 1538) [id number] POCT-GLUCOSE [id number] 02:12:00 Test Item Value Reference Range Interpretation Comments POC-GLUCOSE METER 217 mg/dL 70-110 H TESTED AT [place] [address] ([place]NER) (test code = [place] 1538) [id number] 02:02:00 Test Item Value Reference Range Interpretation Comments POTASSIUM (BEAKER) (test code = 3.9 meq/L 3.5-5.1 379) If last glucose was less than 500, may do bedside glucose instead of serum glucose.[id number] 02:02:00 Test Item Value Reference Range Interpretation Comments GLUCOSE RANDOM (BEAKER) (test code 122 mg/dL 70-105 H = 652) If last glucose was less than 500, may do bedside glucose instead of serum glucose.BASIC METABOLIC [id number] 02:02:00 Test Item Value Reference Range Interpretation [...] 358) GLUCOSE RANDOM 122 mg/dL 70-105 H (BEAKER) (test code = [...] do bedside glucose instead of serum glucose.POCT-GLUCOSE [id number] 01:12:00 Test Item Value Reference Range Interpretation Comments POC-GLUCOSE METER 106 mg/dL 70-110 TESTED AT [place] [address] ([facility]) (test code = PAUL Tanner [place] 1538) [address] POCT-GLUCOSE [id number] 00:39:00 Test Item Value Reference Range Interpretation Comments POC-GLUCOSE METER 51 mg/dL 70-110 L TESTED AT [place] [address] ([facility]) (test code = [place] [address] 1538) POCT-GLUCOSE [id number] 00:30:00 Test Item Value Reference Range Interpretation Comments POC-GLUCOSE METER 51 mg/dL 70-110 L TESTED AT [place] [address] (BEAKER) (test code = PAUL Tanner [facility] [address] 1538) [id number] 22:06:00 Test Item Value Reference Range Interpretation Comments POTASSIUM (BEAKER) (test code = 3.8 meq/L 3.5-5.1 379) If last glucose was less than 500, may do bedside glucose instead of serum glucose.[id number] 22:06:00 Test Item Value Reference Range Interpretation Comments GLUCOSE RANDOM (BEAKER) (test code 311 mg/dL 70-105 H = 652) If last glucose was less than 500, may do bedside glucose instead of serum glucose.KETONE, [id number] 22:03:00 Test Item Value Reference Range Interpretation Comments KETONES, BLOOD (BEAKER) (test code 0.1 mmol/L <0.4 = 1103) POCT-GLUCOSE [id number] 21:52:00 Test Item Value Reference Range Interpretation Comments POC-GLUCOSE METER 403 mg/dL 70-110 HH Notified R N or ([facility]) (test code = Adelia t refused repeat 1538) test/TESTED AT [facility] [address] [facility] [address] BASIC METABOLIC [id number] 19:28:00 Test Item Value Reference Range Interpretation [...] NOT APPLICABLE FOR DIALYSIS PATIEN TS. POCT-GLUCOSE [id number] 17:51:00 Test Item Value Reference Range Interpretation Comments POC-GLUCOSE METER > mg/dL 70-110 HH OUTSIDE ME ASURING (BEAKER) (test code RANGETES MAGDALENO AT [place] [address] = 1538) [facility] [address] POCT-GLUCOSE [id number] 12:17:00 Test Item Value Reference Range Interpretation Comments POC-GLUCOSE METER > mg/dL 70-110 HH OUTSIDE ME ASURING (BEAKER) (test code RANGENot ified RN or MD = 1538) Patient refused repeat test/TESTED AT [place] [id number] [facility] [address] URINALYSIS W/ [id number] 10:06:00 Test Item Value Reference Range Interpretation [...] code = 516) SOURCE(BEAKER) (test code = 2962) POCT-GLUCOSE [id number] 07:31:00 Test Item Value Reference Range Interpretation Comments POC-GLUCOSE METER 365 mg/dL 70-110 H TESTED AT [facility] 6720 (SIMI) (test code = [place] 1538) [address] RAD, CHEST, 1 VIEW, NON [id number] 00:14:00Reason for exam:->SHORTNESS OF BREATHReason for exam:->COUGHIs [...] MDReport Verified Date/Time: 06/15/2018 00:14:15 Reading Location: [address] Reading Room TROPONIN [id number] 00:11:00 Test Item Value Reference Range Interpretation Comments TROPONIN I (SIMI) (test code = 397) < ng/mL 0.00-0.03 [...] failure, acidosis, acute neurological disease, and persistent tachyarrhythmia.[id number] 00:04:00 Test Item Value Reference Range Interpretation Comments MAGNESIUM (SIMI) (test code = 1.5 mg/dL 1.6-2.6 L 627) BASIC METABOLIC [id number] 00:04:00 Test Item Value Reference Range Interpretation [...] PATIEN TS. CBC W/PLT COUNT & AUTO [id number] 23:42:00 Test Item Value Reference Range Interpretation [...] (BEAKER) (test code = 2801) POCT-LACTIC ACID, [id number] 23:36:00 Test Item Value Reference Range Interpretation Comments POC-LACTIC ACID, 1.0 mmol/L 0.9-1.7 TESTED AT [facility] [address] (BEAKER) (test NAOMITAYO Tanner [place] code = 2805) [address] FUNGUS CULTURE + [id number] 11:24:00 Test Item Value Reference Range Interpretation [...] <0 or >4 CULTURE (AKER) PSEUDOMONAS A <1+ Pseudom onas (test code [...] or >4 1+ Normal respiratory derick presentSPIN/CONCENTRATION [id number] 06:32:00 Test Item Value Reference Range Interpretation Comments CONCENTRATION CHARGED (REES46) (test Done code = 2657) POCT-GLUCOSE [id number] 17:10:00 Test Item Value Reference Range Interpretation Comments POC-GLUCOSE METER 338 mg/dL 70-110 H TESTED AT [place] [address] (REES46) (test code = [place] 1538) [address] POCT-GLUCOSE [id number] 12:26:00 Test Item Value Reference Range Interpretation Comments POC-GLUCOSE METER 127 mg/dL 70-110 H TESTED AT [place] [address] ([facility]) (test code = PAUL Tanner [facility] 1538) [address] POCT-GLUCOSE [id number] 08:06:00 Test Item Value Reference Range Interpretation Comments POC-GLUCOSE METER 174 mg/dL 70-110 H TESTED AT [place] [address] ([facility]) (test code = PAUL Tanner [facility] 1538) [address] POCT-GLUCOSE [id number] 21:28:00 Test Item Value Reference Range Interpretation Comments POC-GLUCOSE METER 205 mg/dL 70-110 H TESTED AT [place] [address] ([facility]) (test code = PAUL Tanner [facility] 1538) [address] POCT-GLUCOSE [id number] 17:44:00 Test Item Value Reference Range Interpretation Comments POC-GLUCOSE METER 229 mg/dL 70-110 H TESTED AT [place] [address] ([facility]) (test code = PAUL Tanner [facility] 1538) [address] POCT-GLUCOSE [id number] 12:08:00 Test Item Value Reference Range Interpretation Comments POC-GLUCOSE METER 131 mg/dL 70-110 H TESTED AT [place] [address] ([facility]) (test code = PAUL Tanner [facility] 1538) [address] RAD, ABDOMEN/KUB, 1 VIEW [id number] 10:55:00Reason for exam:->evaluate stool burden, abdominal distention, cf patientShould this be performedat the bedside?->NoFINAL REPORT Two abdomen images compared to February 25, 2018 Discussion: Nonspecific bowel gas pattern with moderate retained feces. No evidence of bowel obstruction. No evidence of free intraperitoneal air. Regional bones are unremarkable. Signed: Flip Choe Verified Date/Time: 04/19/2018 10:55:54 Reading Location: [facility] Radiology Reading Room U/S, ABDOMINAL, [id number] 08:54:00Abdomen limited area? Add comment if clarification [...] Castellanos Verified Date/Time: 04/19/2018 08:54:16 Reading Location: [address] Ultrasound Reading Room POCT-GLUCOSE [id number] 08:18:00 Test Item Value Reference Range Interpretation Comments POC-GLUCOSE METER 105 mg/dL 70-110 TESTED AT [place] [address] ([facility]) (test code = [facility] 1538) [address] POCT-GLUCOSE [id number] 08:06:00 Test Item Value Reference Range Interpretation Comments POC-GLUCOSE METER 74 mg/dL 70-110 TESTED AT [place] [address] ([facility]) (test code = [facility] [address] 1538) BASIC METABOLIC [id number] 06:31:00 Test Item Value Reference Range Interpretation [...] (test code = 697) EGFR (BEAKER) (test 103 mL/min/1.73 ESTIM ATED GFR IS code = 1092) sq m NOT ACCURATE CREATININE CLEARANCE IN PREDICTING GLOMERULAR FILTRATION RATE . ESTIMATED GFR I S NOT APPLICABLE FOR DIALYSIS PATIEN TS. POCT-GLUCOSE [id number] 21:28:00 Test Item Value Reference Range Interpretation Comments POC-GLUCOSE METER 63 mg/dL 70-110 L Notified Ciro Polanco MD/TESTED AT ([facility]) (test code = [address] 1538) [facility] [address] POCT-GLUCOSE [id number] 17:32:00 Test Item Value Reference Range Interpretation Comments POC-GLUCOSE METER 217 mg/dL 70-110 H TESTED AT [place] [address] ([facility]) (test code = PAUL Tanner [facility] 1538) [address] POCT-GLUCOSE [id number] 16:55:00 Test Item Value Reference Range Interpretation Comments POC-GLUCOSE METER 75 mg/dL 70-110 TESTED AT [place] [address] ([facility]) (test code = [facility] Ciro [facility] [address] 1538) BASIC METABOLIC [id number] 12:35:00 Test Item Value Reference Range Interpretation [...] NOT APPLICABLE FOR DIALYSIS PATIEN TS. POCT-GLUCOSE [id number] 12:06:00 Test Item Value Reference Range Interpretation Comments POC-GLUCOSE METER 43 mg/dL 70-110 L Notified R N MD/TESTED AT (BEAKER) (test code = [facility] [address] 1538) [place] [address] [id number] 12:01:00 Test Item Value Reference Range Interpretation Comments MAGNESIUM (BEAKER) (test code = 1.8 mg/dL 1.6-2.6 627) CBC W/PLT COUNT & AUTO [id number] 11:18:00 Test Item Value Reference Range Interpretation [...] PERCENT (BEAKER) (test code = 2801) POCT-GLUCOSE [id number] 07:31:00 Test Item Value Reference Range Interpretation Comments POC-GLUCOSE METER 275 mg/dL 70-110 H TESTED AT [place] [address] ([facility]) (test code = PAUL Tanner [facility] 1538) [address] POCT-GLUCOSE [id number] 22:01:00 Test Item Value Reference Range Interpretation Comments POC-GLUCOSE METER 109 mg/dL 70-110 TESTED AT [place] [address] ([facility]) (test code = PAUL Tanner [facility] 1538) [address] POCT-GLUCOSE [id number] 21:11:00 Test Item Value Reference Range Interpretation Comments POC-GLUCOSE METER 61 mg/dL 70-110 L Notified R Collin STAPLETON/TESTED AT ([facility]) (test code = [place] [address] [address] 1538) [facility] 7[address] 0 POCT-GLUCOSE [id number] 17:41:00 Test Item Value Reference Range Interpretation Comments POC-GLUCOSE METER 68 mg/dL 70-110 L TESTED AT [place] [address] ([facility]) (test code = PAUL Tanner [facility] [address] 1538) POCT-GLUCOSE [id number] 16:51:00 Test Item Value Reference Range Interpretation Comments POC-GLUCOSE METER 74 mg/dL 70-110 TESTED AT [place] [address] ([facility]) (test code = PAUL Tanner [facility] [address] 1538) URINALYSIS W/ [id number] 14:57:00 Test Item Value Reference Range Interpretation [...] 516) SOURCE(BEAKER) (test code = Urine, Voided 1516) [id number] 14:23:00 Test Item Value Reference Range Interpretation Comments MAGNESIUM (BEAKER) (test code = 0.9 mg/dL 1.6-2.6 LL 627) BASIC METABOLIC [id number] 11:55:00 Test Item Value Reference Range Interpretation [...] PATIEN TS. CBC W/PLT COUNT & AUTO [id number] 11:34:00 Test Item Value Reference Range Interpretation [...] ABSOLUTE COUNT 8.54 K/ L 1.56-6.13 H ([facility]ANNER) (test code = 670) LYMPHOCYTES ABSOLUTE COUNT 1.81 K/ L 1.18-3.74 (BEAKER) (test code = 414) MONOCYTES ABSOLUTE COUNT (BEAKER) 0.67 K/ L 0.24-0.36 H (test code = 415) EOSINOPHILS ABSOLUTE COUNT 0.46 K/ L 0.04-0.36 H (AKER) (test code = 416) BASOPHILS ABSOLUTE COUNT (BEAKER) 0.05 K/ L 0.01-0.08 (test code = 417) IMMATURE GRANULOCYTES-RELATIVE 1 % 0-1 PERCENT (BANNER) (test code = 2801) POCT-GLUCOSE [id number] 08:27:00 Test Item Value Reference Range Interpretation Comments POC-GLUCOSE METER 128 mg/dL 70-110 H TESTED AT [place] [address] ([facility]) (test code = [facility] Ciro [facility] 1538) [address] POCT-GLUCOSE [id number] 21:14:00 Test Item Value Reference Range Interpretation Comments POC-GLUCOSE METER 241 mg/dL 70-110 H TESTED AT [place] [address] ([facility]) (test code = [facility] [employer] [facility] 1538) [address] POCT-GLUCOSE [id number] 18:51:00 Test Item Value Reference Range Interpretation Comments POC-GLUCOSE METER 140 mg/dL 70-110 H TESTED AT [place] [address] ([facility]) (test code = [facility] Ciro [facility] 1538) [address] POCT-GLUCOSE [id number] 18:06:00 Test Item Value Reference Range Interpretation Comments POC-GLUCOSE METER 31 mg/dL 70-110 LL TESTED AT [place] [address] ([facility]) (test code = [facility] Ciro [facility] [address] 1538) POCT-GLUCOSE [id number] 12:58:00 Test Item Value Reference Range Interpretation Comments POC-GLUCOSE METER 72 mg/dL 70-110 TESTED AT [place] [address] ([facility]) (test code = [facility] [employer] [facility] [address] 1538) POCT-GLUCOSE [id number] 08:21:00 Test Item Value Reference Range Interpretation Comments POC-GLUCOSE METER 162 mg/dL 70-110 H TESTED AT [place] [address] ([facility]) (test code = [facility] 1538) [address] [id number] 06:55:00 Test Item Value Reference Range Interpretation Comments BLOOD UREA NITROGEN ([facility]ANNER) (test 15 mg/dL 7 code = 354) [id number] 06:55:00 Test Item Value Reference Range Interpretation Comments CREATININE ([facility]ANNER) 0.97 mg/dL 0.57-1.25 (test code = 358) EGFR ([facility]ANNER) (test 85 mL/min/1.73 ESTIMA MAGDALENO GFR IS code = 1092) sq m NOT ACCURATE CREATININE CLEARANCE IN PREDICTING GLOMERULAR FILTRATION RATE . ESTIMATED GFR I S NOT APPLICABLE FOR DIALYSIS PATIEN TS. POCT-GLUCOSE [id number] 21:28:00 Test Item Value Reference Range Interpretation Comments POC-GLUCOSE METER 141 mg/dL 70-110 H TESTED AT [place] [address] ([facility]) (test code = [facility] 1538) [address] POCT-GLUCOSE [id number] 17:29:00 Test Item Value Reference Range Interpretation Comments POC-GLUCOSE METER 122 mg/dL 70-110 H TESTED AT [place] [address] ([facility]) (test code = [facility] 1538) [address] POCT-GLUCOSE [id number] 11:22:00 Test Item Value Reference Range Interpretation Comments POC-GLUCOSE METER 66 mg/dL 70-110 L TESTED AT [place] [address] ([facility]) (test code = [facility] [address] 1538) POCT-GLUCOSE [id number] 11:22:00 Test Item Value Reference Range Interpretation Comments POC-GLUCOSE METER 224 mg/dL 70-110 H TESTED AT [place] [address] ([facility]) (test code = [facility] 1538) [address] COMPREHENSIVE METABOLIC [id number] 07:22:00 Test Item Value Reference Range Interpretation Comments TOTAL PROTEIN 6.5 gm/dL 6.0-8.3 (BANNER) (test code = 770) ALBUMIN (BANNER) 2.7 g/dL 3.5-5.0 L (test code = 1145) ALKALINE PHOSPHATASE 113 U/L 40-150 (BANNER) (test code = 346) BILIRUBIN TOTAL 0.1 mg/dL 0.2-1.2 L ([facility]ANNER) (test code = 377) SODIUM (BEAKER) (test [...] PATIEN TS. CBC W/PLT COUNT & AUTO [id number] 06:59:00 Test Item Value Reference Range Interpretation [...] PERCENT (BEAKER) (test code = 2801) POCT-GLUCOSE [id number] 23:01:00 Test Item Value Reference Range Interpretation Comments POC-GLUCOSE METER 411 mg/dL 70-110 HH Notified R Collin STAPLETON/TESTED ([facility]) (test code = AT [place] [address]) [facility] 7[address] 0 POCT-GLUCOSE [id number] 18:29:00 Test Item Value Reference Range Interpretation Comments POC-GLUCOSE METER 216 mg/dL 70-110 H TESTED AT [place] [address] ([facility]) (test code = PAUL Tanner [place] [address]) [address] POCT-GLUCOSE [id number] 12:41:00 Test Item Value Reference Range Interpretation Comments POC-GLUCOSE METER > mg/dL 70-110 HH OUTSIDE [place] AS[place] ([facility]) (test code RANGETES MAGDALENO AT [place] [address] = 1538) [facility] [address] HEMOGLOBIN [id number] 09:11:00 Test Item Value Reference Range Interpretation Comments HEMOGLOBIN A1C (BEAKER) (test code = 13.8 % 4.3-6.1 H 368) POCT-GLUCOSE [id number] 08:12:00 Test Item Value Reference Range Interpretation Comments POC-GLUCOSE METER 72 mg/dL 70-110 TESTED AT [facility] 6720 (BEAKER) (test code = [place] [address] 1538) [id number] 06:33:00 Test Item Value Reference Range Interpretation Comments BLOOD UREA NITROGEN (BEAKER) (test 13 mg/dL 05-14 code = 354) [id number] 06:33:00 Test Item Value Reference Range Interpretation Comments CREATININE (BEAKER) 1.39 mg/dL 0.57-1.25 H (test code = 358) EGFR (BEAKER) (test 56 mL/min/1.73 ESTIMA MAGDALENO GFR IS code = 1092) sq m NOT ACCURATE CREATININE CLEARANCE IN PREDICTING GLOMERULAR FILTRATION RATE . ESTIMATED GFR I S NOT APPLICABLE FOR DIALYSIS PATIEN TS. CBC W/PLT COUNT & AUTO [id number] 06:24:00 Test Item Value Reference Range Interpretation [...] PERCENT (BEAKER) (test code = 2801) POCT-GLUCOSE [id number] 02:09:00 Test Item Value Reference Range Interpretation Comments POC-GLUCOSE METER 260 mg/dL 70-110 H TESTED AT [facility] 6720 ([facility]) (test code = PAUL Tanner [facility] 1538) [address] RAD, CHEST, 1 VIEW, NON [id number] 20:00:00Reason for exam:->CHEST PAINIs the patient ?->UnknownShould this be performed at the [facility]?->YesFINAL REPORT EXAMINATION: AP PORTABLE CHEST RADIOGRAPH [...] evaluation as clinically warranted. Signed: Brennon Alicia MDReport Verified Date/Time: 04/13/2018 20:00:46 Reading Location: [address] Reading Room KETONE, [id number] 18:36:00 Test Item Value Reference Range Interpretation Comments KETONES, BLOOD (BEAKER) (test code 0.1 mmol/L <0.4 = 1103) BASIC METABOLIC [id number] 18:18:00 Test Item Value Reference Range Interpretation [...] PATIEN TS. CBC W/PLT COUNT & AUTO [id number] 18:02:00 Test Item Value Reference Range Interpretation [...] PERCENT (BEAKER) (test code = 2801) POCT-GLUCOSE [id number] 16:57:00 Test Item Value Reference Range Interpretation Comments POC-GLUCOSE METER 117 mg/dL 70-110 H TESTED AT [place] [address] ([facility]) (test code = PAUL Tanner [place] 1538) [address] POCT-GLUCOSE [id number] 16:56:00 Test Item Value Reference Range Interpretation Comments POC-GLUCOSE METER 62 mg/dL 70-110 L Notified R Collin or ([facility]ANNER) (test code = Patien t refused repeat 1538) test/TESTED AT [place] [address] [place] [address] POCT-GLUCOSE [id number] 12:23:00 Test Item Value Reference Range Interpretation Comments POC-GLUCOSE METER 81 mg/dL 70-110 TESTED AT [place] [address] ([facility]NER) (test code = PAUL Tanner [facility] [address] 1538) POCT-GLUCOSE [id number] 09:36:00 Test Item Value Reference Range Interpretation Comments POC-GLUCOSE METER 239 mg/dL 70-110 H TESTED AT [place] [address] ([facility]) (test code = [facility] Ciro [facility] 1538) [address] BUN AND [id number] 07:03:00 Test Item Value Reference Range Interpretation Comments BLOOD UREA NITROGEN 19 mg/dL 7-21 (BANNER) (test code = 354) CREATININE ([facility]ANNER) 0.71 mg/dL 0.57-1.25 (test code = 358) EGFR ([facility]ANNER) (test 122 mL/min/1.73 ESTIM ATED GFR IS code = 1092) sq m NOT ACCURATE CREATININE CLEARANCE IN PREDICTING GLOMERULAR FILTRATION RATE . ESTIMATED GFR I S NOT APPLICABLE FOR DIALYSIS PATIEN TS. POCT-GLUCOSE [id number] 17:46:00 Test Item Value Reference Range Interpretation Comments POC-GLUCOSE METER 147 mg/dL 70-110 H TESTED AT [place] [address] ([facility]NER) (test code = PAUL Tanner [place] 1538) [address] POCT-GLUCOSE [id number] 13:26:00 Test Item Value Reference Range Interpretation Comments POC-GLUCOSE METER 105 mg/dL 70-110 TESTED AT [place] [address] ([facility]NER) (test code = NAOMIVA Ciro [place] 1538) [address] POCT-GLUCOSE [id number] 07:56:00 Test Item Value Reference Range Interpretation Comments POC-GLUCOSE METER 207 mg/dL 70-110 H TESTED AT [place] [address] (BEAKER) (test code = [place] 1538) [address] CBC W/PLT COUNT & AUTO [id number] 06:59:00 Test Item Value Reference Range Interpretation [...] (test code = 416) BASOPHILS ABSOLUTE COUNT (BANNER) 0.04 K/ L 0.01-0.08 (test code = 417) IMMATURE GRANULOCYTES-RELATIVE 1 % 0-1 PERCENT (BANNER) (test code = 2801) BUN AND [id number] 06:42:00 Test Item Value Reference Range Interpretation Comments BLOOD UREA NITROGEN 16 mg/dL 7-21 (BANNER) (test code = 354) CREATININE (BANNER) 0.67 mg/dL 0.57-1.25 (test code = 358) EGFR ([facility]ANNER) (test 130 mL/min/1.73 ESTIM ATED GFR IS code = 1092) sq m NOT ACCURATE CREATININE CLEARANCE IN PREDICTING GLOMERULAR FILTRATION RATE . ESTIMATED GFR I S NOT APPLICABLE FOR DIALYSIS PATIEN TS. POCT-GLUCOSE [id number] 21:05:00 Test Item Value Reference Range Interpretation Comments POC-GLUCOSE METER 195 mg/dL 70-110 H TESTED AT [place] [address] ([facility]ANNER) (test code = PAUL Tanner [facility] 1538) [address] POCT-GLUCOSE [id number] 18:55:00 Test Item Value Reference Range Interpretation Comments POC-GLUCOSE METER 344 mg/dL 70-110 H TESTED AT [place] [address] ([facility]ANNER) (test code = PAUL Tanner [facility] 1538) [address] POCT-GLUCOSE [id number] 12:20:00 Test Item Value Reference Range Interpretation Comments POC-GLUCOSE METER 166 mg/dL 70-110 H TESTED AT [place] [address] ([facility]ANNER) (test code = PAUL Tanner [facility] 1538) [address] POCT-GLUCOSE [id number] 11:34:00 Test Item Value Reference Range Interpretation Comments POC-GLUCOSE METER 68 mg/dL 70-110 L Pérezied Ciro Polanco MD/TESTED AT ([facility]ANNER) (test code = [address] 1538) [place] [address] BUN AND [id number] 10:24:00 Test Item Value Reference Range Interpretation Comments BLOOD UREA NITROGEN 15 mg/dL 7-21 (BANNER) (test code = 354) CREATININE ([facility]ANNER) 0.64 mg/dL 0.57-1.25 (test code = 358) EGFR ([facility]ANNER) (test 137 mL/min/1.73 ESTIM ATED GFR IS code = 1092) sq m NOT ACCURATE CREATININE CLEARANCE IN PREDICTING GLOMERULAR FILTRATION RATE . ESTIMATED GFR I S NOT APPLICABLE FOR DIALYSIS PATIEN TS. POCT-GLUCOSE [id number] 07:58:00 Test Item Value Reference Range Interpretation Comments POC-GLUCOSE METER 218 mg/dL 70-110 H TESTED AT [place] [address] ([facility]NER) (test code = [facility] 1538) [address] POCT-GLUCOSE [id number] 22:10:00 Test Item Value Reference Range Interpretation Comments POC-GLUCOSE METER 140 mg/dL 70-110 H TESTED AT [place] [address] ([facility]) (test code = [facility] 1538) [address] POCT-GLUCOSE [id number] 20:51:00 Test Item Value Reference Range Interpretation Comments POC-GLUCOSE METER 182 mg/dL 70-110 H TESTED AT [place] [address] ([facility]) (test code = [facility] 1538) [address] POCT-GLUCOSE [id number] 12:49:00 Test Item Value Reference Range Interpretation Comments POC-GLUCOSE METER 81 mg/dL 70-110 TESTED AT [place] [address] ([facility]NER) (test code = [facility] [address] 1538) POCT-GLUCOSE [id number] 08:20:00 Test Item Value Reference Range Interpretation Comments POC-GLUCOSE METER 362 mg/dL 70-110 H Notified R Collin or ([facility]ANNER) (test code = Patien t refused repeat 1538) test/TESTED AT [address] [place] [address] BUN AND [id number] 06:16:00 Test Item Value Reference Range Interpretation Comments BLOOD UREA NITROGEN 16 mg/dL 7-21 ([facility]) (test code = 354) CREATININE ([facility]) 0.76 mg/dL 0.57-1.25 (test code = 358) EGFR ([facility]) (test 112 mL/min/1.73 ESTIM ATED GFR IS code = 1092) sq m NOT ACCURATE CREATININE CLEARANCE IN PREDICTING GLOMERULAR FILTRATION RATE . ESTIMATED GFR I S NOT APPLICABLE FOR DIALYSIS PATIEN TS. CBC W/PLT COUNT & AUTO [id number] 06:13:00 Test Item Value Reference Range Interpretation [...] PERCENT ([facility]) (test code = 2801) POCT-GLUCOSE [id number] 21:45:00 Test Item Value Reference Range Interpretation Comments POC-GLUCOSE METER 226 mg/dL 70-110 H TESTED AT [place] [address] ([facility]) (test code = [facility] 1538) [id number] POCT-GLUCOSE [id number] 17:21:00 Test Item Value Reference Range Interpretation Comments POC-GLUCOSE METER 245 mg/dL 70-110 H TESTED AT [place] [address] ([facility]) (test code = [facility] 1538) [id number] POCT-GLUCOSE [id number] 12:59:00 Test Item Value Reference Range Interpretation Comments POC-GLUCOSE METER 76 mg/dL 70-110 TESTED AT [place] [address] ([facility]) (test code = [facility] [address] 1538) POCT-GLUCOSE [id number] 08:21:00 Test Item Value Reference Range Interpretation Comments POC-GLUCOSE METER 88 mg/dL 70-110 TESTED AT [place] [address] ([facility]) (test code = [facility] [address] 1538) BUN AND [id number] 05:56:00 Test Item Value Reference Range Interpretation Comments BLOOD UREA NITROGEN 9 mg/dL 7-21 ([facility]) (test code = 354) CREATININE ([facility]) 0.74 mg/dL 0.57-1.25 (test code = 358) EGFR ([facility]) (test 116 mL/min/1.73 ESTIM ATED GFR IS code = 1092) sq m NOT ACCURATE CREATININE CLEARANCE IN PREDICTING GLOMERULAR FILTRATION RATE . ESTIMATED GFR I S NOT APPLICABLE FOR DIALYSIS PATIEN TS. CBC W/PLT COUNT & AUTO [id number] 05:30:00 Test Item Value Reference Range Interpretation Comments WHITE BLOOD CELL COUNT (BANNER) 14.2 K/ L 3.5-10.5 H (test code = 775) RED BLOOD CELL COUNT (BANNER) 3.82 M/ L 3.93-5.22 L (test code = 761) HEMOGLOBIN (BEAKER) (test code = 10.2 GM/DL 11.2-15.7 L 410) HEMATOCRIT (BANNER) (test code = 34.0 % 34.1-44.9 L [...] ABSOLUTE COUNT 9.65 K/ L 1.56-6.13 H (BEAKER) (test code [...] PERCENT (BEAKER) (test code = 2802) POCT-GLUCOSE [id number] 21:20:00 Test Item Value Reference Range Interpretation Comments POC-GLUCOSE METER 211 mg/dL 70-110 H TESTED AT [facility] 6720 (BEAKER) (test code = [place] 1538) [address] POCT-GLUCOSE [id number] 17:25:00 Test Item Value Reference Range Interpretation Comments POC-GLUCOSE METER 152 mg/dL 70-110 H TESTED AT [facility] 6720 (BEAKER) (test code = PAUL Tanner [place] 1538) [address] POCT-GLUCOSE [id number] 13:32:00 Test Item Value Reference Range Interpretation Comments POC-GLUCOSE METER 81 mg/dL 70-110 TESTED AT [facility] 6720 (BANNER) (test code = [place] [address] 1538) BUN AND [id number] 10:16:00 Test Item Value Reference Range Interpretation [...] PATIEN TS. CBC W/PLT COUNT & AUTO [id number] 09:23:00 Test Item Value Reference Range Interpretation [...] PERCENT (BEAKER) (test code = 2801) POCT-GLUCOSE [id number] 08:05:00 Test Item Value Reference Range Interpretation Comments POC-GLUCOSE METER 245 mg/dL 70-110 H TESTED AT [place] [address] (BANNER) (test code = PAUL Tanner [facility] 1538) [address] POCT-GLUCOSE [id number] 21:42:00 Test Item Value Reference Range Interpretation Comments POC-GLUCOSE METER 163 mg/dL 70-110 H TESTED AT [place] [address] (BANNER) (test code = NAOMIVA Ciro [facility] 1538) [address] POCT-GLUCOSE [id number] 18:57:00 Test Item Value Reference Range Interpretation Comments POC-GLUCOSE METER 65 mg/dL 70-110 L Will Repea t Test/TESTED (BANNER) (test code = AT [address] 1538) [facility] [address] POCT-GLUCOSE [id number] 14:12:00 Test Item Value Reference Range Interpretation Comments POC-GLUCOSE METER 72 mg/dL 70-110 TESTED AT [place] [address] (BANNER) (test code = [facility] Ciro [facility] [address] 1538) POCT-GLUCOSE [id number] 10:46:00 Test Item Value Reference Range Interpretation Comments POC-GLUCOSE METER 361 mg/dL 70-110 H Will Repea t Test/TESTED (BEAKER) (test code = AT [facility] 67[address] [place] [address]) [facility] 7703 0 BASIC METABOLIC [id number] 10:11:00 Test Item Value Reference Range Interpretation [...] PATIEN TS. CBC W/PLT COUNT & AUTO [id number] 09:22:00 Test Item Value Reference Range Interpretation [...] code = 414) MONOCYTES ABSOLUTE COUNT (BEAKER) 1.04 K/ L 0.24-0.36 H (test code = 415) EOSINOPHILS ABSOLUTE COUNT 0.70 K/ L 0.04-0.36 H (BEAKER) (test code = 416) BASOPHILS ABSOLUTE COUNT (BEAKER) 0.03 K/ L 0.01-0.08 (test code = 417) IMMATURE GRANULOCYTES-RELATIVE 1 % 0-1 PERCENT (BEAKER) (test code = 2801) POCT-GLUCOSE [id number] 22:41:00 Test Item Value Reference Range Interpretation Comments POC-GLUCOSE METER 118 mg/dL 70-110 H TESTED AT [facility] 6720 (BEAKER) (test code = [place] 1538) [address] [id number] 17:38:00 Test Item Value Reference Range Interpretation Comments POTASSIUM (BEAKER) (test code = 5.4 meq/L 3.5-5.1 H 379) POCT-GLUCOSE [id number] 17:31:00 Test Item Value Reference Range Interpretation Comments POC-GLUCOSE METER 111 mg/dL 70-110 H TESTED AT [facility] 6720 (BEAKER) (test code = [place] 1538) [address] POCT-GLUCOSE [id number] 12:16:00 Test Item Value Reference Range Interpretation Comments POC-GLUCOSE METER 186 mg/dL 70-110 H TESTED AT [place] [address] (BANNER) (test code = PAUL Tanner [place] [address]) [address] POCT-GLUCOSE [id number] 09:29:00 Test Item Value Reference Range Interpretation Comments POC-GLUCOSE METER 159 mg/dL 70-110 H TESTED AT [place] [address] (BANNER) (test code = PAUL Tanner [place] [address]) [address] POCT-GLUCOSE [id number] 08:59:00 Test Item Value Reference Range Interpretation Comments POC-GLUCOSE METER 29 mg/dL 70-110 LL Will Jassona t Test/TESTED (BANNER) (test code = AT [place] [address]) [facility] 7703 0 POCT-GLUCOSE [id number] 06:52:00 Test Item Value Reference Range Interpretation Comments POC-GLUCOSE METER 492 mg/dL 70-110 HH Notified R N MD/TESTED ([facility]) (test code = AT [place] [address]) [facility] 7703 0 COMPREHENSIVE METABOLIC [id number] 06:27:00 Test Item Value Reference Range Interpretation [...] 0-0 (BEAKER) (test code = 413) POCT-GLUCOSE [id number] 17:54:00 Test Item Value Reference Range Interpretation Comments POC-GLUCOSE METER 386 mg/dL 70-110 H Notified R N or (BANNER) (test code = Patien t refused repeat 1538) test/TESTED AT [facility] [address] [place] [address] POCT-GLUCOSE [id number] 12:41:00 Test Item Value Reference Range Interpretation Comments POC-GLUCOSE METER 104 mg/dL 70-110 TESTED AT [facility] 6720 (AKER) (test code = PAUL Tanner [place] 1538) [address] POCT-GLUCOSE [id number] 07:57:00 Test Item Value Reference Range Interpretation Comments POC-GLUCOSE METER 140 mg/dL 70-110 H TESTED AT [facility] 6720 (BEAKER) (test code = NAOMIVA Ciro [place] 1538) [address] BASIC METABOLIC [id number] 05:36:00 Test Item Value Reference Range Interpretation [...] % 34.1-44.9 L 411) MEAN CORPUSCULAR VOLUME (AKER) 87.6 fL 79.4-94.8 (test code = 753) MEAN CORPUSCULAR HEMOGLOBIN 26.0 pg 25.6-32.2 (AKER) (test code = 751) MEAN CORPUSCULAR HEMOGLOBIN CONC 29.7 GM/DL 32.2-35.5 L (AKER) (test code = 752) RED CELL DISTRIBUTION WIDTH 18.4 % 11.7-14.4 H (AKER) (test code = 412) PLATELET COUNT (BANNER) (test 473 K/CU MM 150-450 H code = 756) MEAN PLATELET VOLUME (BANNER) 9.6 fL 9.4-12.3 (test code = 754) NUCLEATED RED BLOOD CELLS 0 /100 WBC 0-0 (BANNER) (test code = 413) POCT-GLUCOSE [id number] 21:46:00 Test Item Value Reference Range Interpretation Comments POC-GLUCOSE METER 117 mg/dL 70-110 H TESTED AT [place] [address] (BANNER) ([facility] 1538) [address] POCT-GLUCOSE [id number] 17:44:00 Test Item Value Reference Range Interpretation Comments POC-GLUCOSE METER 142 mg/dL 70-110 H TESTED AT [place] [address] (BANNER) (test code = [facility] Ciro [facility] 1538) [address] POCT-GLUCOSE [id number] 12:49:00 Test Item Value Reference Range Interpretation Comments POC-GLUCOSE METER 420 mg/dL 70-110 HH TESTED AT [place] [address] (BANNER) (test code = [facility] Ciro [facility] 1538) [address] POCT-GLUCOSE [id number] 08:52:00 Test Item Value Reference Range Interpretation Comments POC-GLUCOSE METER 381 mg/dL 70-110 H TESTED AT [place] [address] (BANNER) (test code = [facility] Ciro [facility] 1538) [address] BASIC METABOLIC [id number] 05:59:00 Test Item Value Reference Range Interpretation Comments SODIUM (BANNER) 141 meq/L 136-145 (test code = 381) POTASSIUM (AKER) 4.0 meq/L 3.5-5.1 (test code = 379) [...] 0-0 (BEAKER) (test code = 413) POCT-GLUCOSE [id number] 23:16:00 Test Item Value Reference Range Interpretation Comments POC-GLUCOSE METER 146 mg/dL 70-110 H TESTED AT [place] [address] (BANNER) (test code = [facility] 1538) [address] POCT-GLUCOSE [id number] 19:07:00 Test Item Value Reference Range Interpretation Comments POC-GLUCOSE METER 268 mg/dL 70-110 H TESTED AT [place] [address] (BANNER) (test code = [facility] 1538) [address] POCT-GLUCOSE [id number] 15:33:00 Test Item Value Reference Range Interpretation Comments POC-GLUCOSE METER 288 mg/dL 70-110 H TESTED AT [place] [address] (BANNER) (test code = [facility] 1538) [address] POCT-GLUCOSE [id number] 15:17:00 Test Item Value Reference Range Interpretation Comments POC-GLUCOSE METER 79 mg/dL 70-110 TESTED AT [place] [address] (BANNER) (test code = [facility] [address] 1538) POCT-GLUCOSE [id number] 12:53:00 Test Item Value Reference Range Interpretation Comments POC-GLUCOSE METER 48 mg/dL 70-110 L Patient on insulin (BANNER) (test code = Drip/T ESTED AT [place] [address]) 6720 [facility] [address] RAD, ABDOMEN/KUB, 1 VIEW [id number] 08:30:00Reason for exam:->Monitor constipationFINAL REPORT Chest one view compared to February 23, 2018 Discussion: There is moderate retained feces overall similar in appearance. No evidence of bowel distention. No evidence of free intraperitoneal air. No concerning calcification. Signed: Flip Choe Verified Date/Time: 02/25/2018 08:30:00 Reading Location: [facility] Radiology Reading Room POCT-GLUCOSE [id number] 08:15:00 Test Item Value Reference Range Interpretation Comments POC-GLUCOSE METER 83 mg/dL 70-110 TESTED AT [place] [address] (BANNER) (test code = [facility] [address] 1538) CF RESPIRATORY [id number] 00:03:00 Test Item Value Reference Range Interpretation [...] = 25) Resistant <0 or >4 CULTURE (BANNER) PSEUDOMONAS A 2+ Pseudomo viki (test code [...] or >4 3+ Normal respiratory derick presentPOCT-GLUCOSE [id number] 21:18:00 Test Item Value Reference Range Interpretation Comments POC-GLUCOSE METER 311 mg/dL 70-110 H TESTED AT [facility] 67 (BANNER) (test code = [place] 1538) [address] POCT-GLUCOSE [id number] 17:13:00 Test Item Value Reference Range Interpretation Comments POC-GLUCOSE METER 319 mg/dL 70-110 H TESTED AT [facility] 6720 (BEAKER) (test code = PAUL Tanner [facility] 1538) [address] POCT-GLUCOSE [id number] 12:28:00 Test Item Value Reference Range Interpretation Comments POC-GLUCOSE METER 415 mg/dL 70-110 HH Notified R Collin STAPLETON/TESTED (BEAKER) (test code = AT [facility] 67[address] [address]38) [facility] 7[address] 0 BLOOD [id number] 06:00:00 Test Item Value Reference Range Interpretation Comments CULTURE (BEAKER) (test No growth in 5 days code = 1095) BLOOD [id number] 06:00:00 Test Item Value Reference Range Interpretation Comments CULTURE (BEAKER) (test No growth in 5 days code = 1095) LACTIC ACID, VENOUS, WHOLE [id number] 05:46:00 Test Item Value Reference Range Interpretation Comments LACTATE BLOOD VENOUS (2) (BEAKER) 1.0 mmol/L 0.5-2.2 (test code = 2872) Effective 02/26/2016: Units/Reference Range ChangeNew: 0.5-2.2 mmol/L Previous: 5-20 mg/dLBASIC METABOLIC [id number] 05:41:00 Test Item Value Reference Range Interpretation [...] PATIEN TS. CBC W/PLT COUNT & AUTO [id number] 05:27:00 Test Item Value Reference Range Interpretation [...] EOSINOPHILS ABSOLUTE COUNT 0.25 K/ L 0.04-0.36 (BANNER) (test code = 416) BASOPHILS ABSOLUTE COUNT (BANNER) 0.04 K/ L 0.01-0.08 (test code = 417) IMMATURE GRANULOCYTES-RELATIVE 2 % 0-1 H PERCENT (BANNER) (test code = 2801) POCT-GLUCOSE [id number] 21:47:00 Test Item Value Reference Range Interpretation Comments POC-GLUCOSE METER 258 mg/dL 70-110 H TESTED AT [place] [address] (BANNER) (test code = [facility] Ciro [facility] 1538) [address] POCT-GLUCOSE [id number] 17:44:00 Test Item Value Reference Range Interpretation Comments POC-GLUCOSE METER 151 mg/dL 70-110 H TESTED AT [place] [address] (BANNER) (test code = [facility] Ciro [facility] 1538) [address] RAD, ABDOMEN/KUB, 1 VIEW [id number] 15:48:00Reason for exam:->eval for ileus vs obstructionFINAL REPORT Two abdomen images compared to February 20, 2018 Discussion: Moderate retained feces. No evidence of small bowel distention. No evidence of free intraperitoneal air. Regional bones are unremarkable. No concerning calcification. Signed: Flip Choe Verified Date/Time: 02/23/2018 15:48:56 Reading Location: [facility] C0W Consult Reading Room Electronicallysigned by: FLIP CHOE M.D. on 02/23/2018 03:48 PMPOCT-GLUCOSE [id number] 12:11:00 Test Item Value Reference Range Interpretation Comments POC-GLUCOSE METER 479 mg/dL 70-110 HH TESTED AT [place] [address] (BANNER) (test code = [facility] Ciro [facility] 1538) [address] POCT-GLUCOSE [id number] 08:30:00 Test Item Value Reference Range Interpretation Comments POC-GLUCOSE METER > mg/dL 70-110 HH OUTSIDE ME ASURING (BANNER) (test code RANGENot ified JORDON STAPLETON/TESTED = 1538) AT [place] [address] Jane [place] [address] BASIC METABOLIC [id number] 05:51:00 Test Item Value Reference Range Interpretation [...] PATIEN TS. CBC W/PLT COUNT & AUTO [id number] 05:39:00 Test Item Value Reference Range Interpretation [...] PERCENT (BEAKER) (test code = 2801) POCT-GLUCOSE [id number] 21:48:00 Test Item Value Reference Range Interpretation Comments POC-GLUCOSE METER 405 mg/dL 70-110 HH TESTED AT [place] [address] (BANNER) (test code = PAUL Tanner [facility] 1538) [address] POCT-GLUCOSE [id number] 17:42:00 Test Item Value Reference Range Interpretation Comments POC-GLUCOSE METER 325 mg/dL 70-110 H Notified Ciro Polanco or (BANNER) (test code = Adelia cooney refused repeat 1538) test/TESTED AT [address] [address] POCT-GLUCOSE [id number] 13:00:00 Test Item Value Reference Range Interpretation Comments POC-GLUCOSE METER 62 mg/dL 70-110 L Notified Ciro Polanco MD/TESTED AT (BANNER) (test code = [address] 1538) [facility] 7[address] 0 POCT-GLUCOSE [id number] 12:20:00 Test Item Value Reference Range Interpretation Comments POC-GLUCOSE METER 50 mg/dL 70-110 L Will Repea t Test/TESTED (BEAKER) (test code = AT [facility] 67[address] [place] 1538) [facility] 7[address] 0 POCT-GLUCOSE [id number] 12:20:00 Test Item Value Reference Range Interpretation Comments POC-GLUCOSE METER 37 mg/dL 70-110 LL Notified R Collin or (BEAKER) (test code = Patien t refused repeat 1538) test/TESTED AT [facility] 6720 [facility] [address] POCT-GLUCOSE [id number] 08:11:00 Test Item Value Reference Range Interpretation Comments POC-GLUCOSE METER 372 mg/dL 70-110 H TESTED AT [facility] 6720 (BEAKER) (test code = PAUL R [facility] 1538) [address] BASIC METABOLIC [id number] 06:08:00 Test Item Value Reference Range Interpretation [...] PATIDHAVAL TS. CBC W/PLT COUNT & AUTO [id number] 05:42:00 Test Item Value Reference Range Interpretation [...] PERCENT (BEAKER) (test code = 2801) POCT-GLUCOSE [id number] 19:45:00 Test Item Value Reference Range Interpretation Comments POC-GLUCOSE METER 81 mg/dL 70-110 TESTED AT [facility] 6720 (BEAKER) (test code = [facility] [address] 1538) POCT-GLUCOSE [id number] 15:40:00 Test Item Value Reference Range Interpretation Comments POC-GLUCOSE METER 190 mg/dL 70-110 H TESTED AT [place] [address] (BANNER) (test code = [facility] 1538) [address] POCT-GLUCOSE [id number] 10:56:00 Test Item Value Reference Range Interpretation Comments POC-GLUCOSE METER 262 mg/dL 70-110 H TESTED AT [place] [address] (BANNER) (test code = [facility] 1538) [address] POCT-GLUCOSE [id number] 08:59:00 Test Item Value Reference Range Interpretation Comments POC-GLUCOSE METER 246 mg/dL 70-110 H TESTED AT [place] [address] (BANNER) (test code = [facility] 1538) [address] POCT-GLUCOSE [id number] 08:13:00 Test Item Value Reference Range Interpretation Comments POC-GLUCOSE METER 176 mg/dL 70-110 H TESTED AT [place] [address] (BANNER) (test code = [facility] 1538) [address] POCT-GLUCOSE [id number] 07:18:00 Test Item Value Reference Range Interpretation Comments POC-GLUCOSE METER 193 mg/dL 70-110 H TESTED AT [place] [address] (BANNER) (test code = [facility] 1538) [address] POCT-GLUCOSE [id number] 06:35:00 Test Item Value Reference Range Interpretation Comments POC-GLUCOSE METER 178 mg/dL 70-110 H TESTED AT [place] [address] (BANNER) (test code = [facility] 1538) [address] BASIC METABOLIC [id number] 06:18:00 Test Item Value Reference Range Interpretation [...] PATIEN TS. CBC W/PLT COUNT & AUTO [id number] 06:07:00 Test Item Value Reference Range Interpretation [...] PERCENT (BEAKER) (test code = 2801) POCT-GLUCOSE [id number] 05:15:00 Test Item Value Reference Range Interpretation Comments POC-GLUCOSE METER 169 mg/dL 70-110 H TESTED AT [place] [address] (BANNER) (test code = [facility] 1538) [address] POCT-GLUCOSE [id number] 04:27:00 Test Item Value Reference Range Interpretation Comments POC-GLUCOSE METER 271 mg/dL 70-110 H TESTED AT [place] [address] ([facility]) (test code = [facility] 1538) [address] POCT-GLUCOSE [id number] 03:45:00 Test Item Value Reference Range Interpretation Comments POC-GLUCOSE METER 269 mg/dL 70-110 H TESTED AT [place] [address] ([facility]) (test code = [facility] 1538) [address] POCT-GLUCOSE [id number] 01:40:00 Test Item Value Reference Range Interpretation Comments POC-GLUCOSE METER 200 mg/dL 70-110 H TESTED AT [place] [address] ([facility]) (test code = [facility] 1538) [address] BASIC METABOLIC [id number] 00:50:00 Test Item Value Reference Range Interpretation Comments SODIUM (BEAKER) 138 meq/L 136-145 (test code = 381) POTASSIUM (BEAKER) 4.0 meq/L 3.5-5.1 (test code = 379) CHLORIDE (BEAKER) 105 meq/L 98-107 (test code = 382) CO2 (BEAKER) (test 25 meq/L 22-29 code = 355) BLOOD UREA NITROGEN 19 mg/dL 7-21 (BANNER) (test code = 354) CREATININE (BANNER) 0.71 mg/dL 0.57-1.25 (test code = 358) GLUCOSE RANDOM 101 mg/dL 70-105 (BANNER) (test code = 652) CALCIUM (BANNER) 8.1 mg/dL 8.4-10.2 L (test code = 697) EGFR (BANNER) (test 122 mL/min/1.73 ESTIM ATED GFR IS code = 1092) sq m NOT ACCURATE CREATININE CLEARANCE IN PREDICTING GLOMERULAR FILTRATION RATE . ESTIMATED GFR I S NOT APPLICABLE FOR DIALYSIS PATIEN TS. POCT-GLUCOSE [id number] 00:49:00 Test Item Value Reference Range Interpretation Comments POC-GLUCOSE METER 103 mg/dL 70-110 TESTED AT [place] [address] (BANNER) (test code = NAOMITAYO [employer] [facility] 1538) [address] POCT-GLUCOSE [id number] 00:28:00 Test Item Value Reference Range Interpretation Comments POC-GLUCOSE METER 109 mg/dL 70-110 TESTED AT [place] [address] (BANNER) (test code = [facility] [employer] [facility] 1538) [address] POCT-GLUCOSE [id number] 23:10:00 Test Item Value Reference Range Interpretation Comments POC-GLUCOSE METER 191 mg/dL 70-110 H TESTED AT [place] [address] (BANNER) (test code = [facility] [employer] [facility] 1538) [address] POCT-GLUCOSE [id number] 22:17:00 Test Item Value Reference Range Interpretation Comments POC-GLUCOSE METER 257 mg/dL 70-110 H TESTED AT [place] [address] (BANNER) (test code = [employer] [facility] 1538) [address] POCT-GLUCOSE [id number] 21:28:00 Test Item Value Reference Range Interpretation Comments POC-GLUCOSE METER 261 mg/dL 70-110 H TESTED AT [place] [address] (BANNER) (test code = [employer] [facility] 1538) 139[address] POCT-GLUCOSE [id number] 20:19:00 Test Item Value Reference Range Interpretation Comments POC-GLUCOSE METER 223 mg/dL 70-110 H TESTED AT [place] [address] (BANNER) (test code = [employer] [facility] 1538) [address] POCT-GLUCOSE [id number] 19:30:00 Test Item Value Reference Range Interpretation Comments POC-GLUCOSE METER 218 mg/dL 70-110 H TESTED AT [facility] 6720 ([facility]) (test code = [facility] 1538) [address] POCT-GLUCOSE [id number] 18:28:00 Test Item Value Reference Range Interpretation Comments POC-GLUCOSE METER 167 mg/dL 70-110 H TESTED AT [place] [address] (BEAKER) (test code = [facility] 1538) [address] BASIC METABOLIC [id number] 17:37:00 Test Item Value Reference Range Interpretation [...] 358) GLUCOSE RANDOM 340 mg/dL 70-105 H (BEAKER) (test code = 652) CALCIUM (BEAKER) 8.1 mg/dL 8.4-10.2 L (test code = 697) EGFR (BEAKER) (test 107 mL/min/1.73 ESTIM ATED GFR IS code = 1092) sq m NOT ACCURATE CREATININE CLEARANCE IN PREDICTING GLOMERULAR FILTRATION RATE . ESTIMATED GFR I S NOT APPLICABLE FOR DIALYSIS PATIEN TS. POCT-GLUCOSE [id number] 17:29:00 Test Item Value Reference Range Interpretation Comments POC-GLUCOSE METER 357 mg/dL 70-110 H TESTED AT [facility] 6720 (BEAKER) (test code = [facility] C[facility] 1538) [address] POCT-GLUCOSE [id number] 16:17:00 Test Item Value Reference Range Interpretation Comments POC-GLUCOSE METER 412 mg/dL 70-110 HH TESTED AT [place] [id number] ([facility]) (test code = [facility] 1538) [address] POCT-GLUCOSE [id number] 14:57:00 Test Item Value Reference Range Interpretation Comments POC-GLUCOSE METER 356 mg/dL 70-110 H TESTED AT [facility] 6720 (BEAKER) (test code = PAUL Tanner [place] 1538) [address] POCT-GLUCOSE [id number] 14:08:00 Test Item Value Reference Range Interpretation Comments POC-GLUCOSE METER 247 mg/dL 70-110 H TESTED AT [facility] 6720 (BEAKER) (test code = PAUL Tanner [place] 1538) [address] RAD, ABDOMEN/KUB, 1 VIEW [id number] 14:07:00Reason for exam:->Abdominal pain, Cystic FibrosisShould this be performed at the bedside?->YesFINAL REPORT Two frontal views of the abdomen HISTORY: Abdominal pain COMPARISON: 05/03/2017 IMPRESSION: Moderate amount of stool in the colon. Nonobstructive bowel gas pattern. Bronchiectasis in the lungs. Lung bases otherwise clear. Signed: Michael Onofre MDReport Verified Date/Time: 02/20/2018 14:07:49 Reading Location: [facility] C013Y CT Body Reading Room BASIC METABOLIC [id number] 13:15:00 Test Item Value Reference Range Interpretation [...] NOT APPLICABLE FOR DIALYSIS PATIEN TS. POCT-GLUCOSE [id number] 12:22:00 Test Item Value Reference Range Interpretation Comments POC-GLUCOSE METER 367 mg/dL 70-110 H TESTED AT [facility] 6720 ([place]) (test code = [facility] 1538) [id number] POCT-GLUCOSE [id number] 11:11:00 Test Item Value Reference Range Interpretation Comments POC-GLUCOSE METER 458 mg/dL 70-110 HH TESTED AT [facility] 67 ([place]) (test code = [facility] 1538) [id number] 11:11:00 Test Item Value Reference Range Interpretation Comments GLUCOSE RANDOM ([place]) (test code 449 mg/dL 70-105 HH = 652) POCT-GLUCOSE [id number] 10:06:00 Test Item Value Reference Range Interpretation Comments POC-GLUCOSE METER > mg/dL 70-110 HH OUTSIDE ME ASURING ([place]) (test code [facility] [place] [address] = 1538) [facility] [address] SPUTUM CULTURE + GRAM [id number] 09:42:00 Test Item Value Reference Range Interpretation Comments CULTURE ([place]) (test code = See comment 1095) Culture charges credited as "incorrect order". Please refer to CF respiratory culture for results.Previously reported organism is no longer reported. Please contact the Microbiology Department for additional information.POCT- GLUCOSE [id number] 09:12:00 Test Item Value Reference Range Interpretation Comments POC-GLUCOSE METER 388 mg/dL 70-110 H TESTED AT [facility] 6720 ([place]) (test code = [facility] 1538) [id number] POCT-GLUCOSE [id number] 07:56:00 Test Item Value Reference Range Interpretation Comments POC-GLUCOSE METER 194 mg/dL 70-110 H TESTED AT [facility] 6720 ([place]) (test code = [facility] 1538) [address] POCT-GLUCOSE [id number] 06:35:00 Test Item Value Reference Range Interpretation Comments POC-GLUCOSE METER 157 mg/dL 70-110 H TESTED AT [facility] 6720 (BANNER) (test code = PAUL Tanner [facility] 1538) [address] POCT-GLUCOSE [id number] 05:10:00 Test Item Value Reference Range Interpretation Comments POC-GLUCOSE METER 247 mg/dL 70-110 H TESTED AT [facility] 6720 ([facility]) (test code = PAUL Tanner [place] 1538) [address] BASIC METABOLIC [id number] 04:54:00 Test Item Value Reference Range Interpretation [...] NOT APPLICABLE FOR DIALYSIS PATIEN TS. POCT-GLUCOSE [id number] 04:07:00 Test Item Value Reference Range Interpretation Comments POC-GLUCOSE METER 290 mg/dL 70-110 H TESTED AT [facility] 6720 ([facility]) (test code = PAUL Tanner [place] 1538) [address] POCT-GLUCOSE [id number] 03:04:00 Test Item Value Reference Range Interpretation Comments POC-GLUCOSE METER 309 mg/dL 70-110 H TESTED AT [place] [id number] ([facility]) (test code = PAUL Tanner [place] 1538) [address] POCT-GLUCOSE [id number] 01:36:00 Test Item Value Reference Range Interpretation Comments POC-GLUCOSE METER 361 mg/dL 70-110 H TESTED AT [facility] 6720 (BEAKER) (test code = PAUL Tanner [place] 1538) [address] POCT-GLUCOSE [id number] 00:06:00 Test Item Value Reference Range Interpretation Comments POC-GLUCOSE METER 308 mg/dL 70-110 H TESTED AT [place] [address] (BEAKER) (test code = PAUL Tanner [facility] 1538) [address] URINALYSIS W/ [id number] 23:11:00 Test Item Value Reference Range Interpretation [...] 516) SOURCE(BEAKER) (test code = Urine, Voided 8231) POCT-GLUCOSE [id number] 22:35:00 Test Item Value Reference Range Interpretation Comments POC-GLUCOSE METER 350 mg/dL 70-110 H TESTED AT [place] [address] (BEAKER) (test code = PAUL Tanner [facility] 1538) [address] POCT-GLUCOSE [id number] 21:17:00 Test Item Value Reference Range Interpretation Comments POC-GLUCOSE METER 438 mg/dL 70-110 HH TESTED AT [place] [address] (BEAKER) (test code = PAUL Tanner [facility] 1538) [address] POCT-GLUCOSE [id number] 20:16:00 Test Item Value Reference Range Interpretation Comments POC-GLUCOSE METER 446 mg/dL 70-110 HH TESTED AT [place] [address] (BEAKER) (test code = PAUL Tanner [facility] 1538) [address] POCT-GLUCOSE [id number] 18:57:00 Test Item Value Reference Range Interpretation Comments POC-GLUCOSE METER 452 mg/dL 70-110 HH Will Repea t Test/TESTED (BEAKER) (test code = AT [facility] 6720 [place] 1538) [facility] 7703 0 [id number] 18:10:00 Test Item Value Reference Range Interpretation Comments GLUCOSE RANDOM (BEAKER) (test code 548 mg/dL 70-105 HH = 652) If last glucose was less than 500, may do bedside glucose instead of serum glucose.POCT-GLUCOSE [id number] 17:46:00 Test Item Value Reference Range Interpretation Comments POC-GLUCOSE METER > mg/dL 70-110 HH OUTSIDE ME ASURING (BEAKER) (test code = RANGEW ill Repeat 1538) Test/TESTED AT [address] [address] POCT-GLUCOSE [id number] 16:37:00 Test Item Value Reference Range Interpretation Comments POC-GLUCOSE METER > mg/dL 70-110 HH OUTSIDE ME ASURING (BEAKER) (test code = RANGEW ill Repeat 1538) Test/TESTED AT [address] [address] [id number] 16:07:00 Test Item Value Reference Range Interpretation Comments GLUCOSE RANDOM (BEAKER) (test code 658 mg/dL 70-105 HH = 652) If last glucose was less than 500, may do bedside glucose instead of serum glucose.[id number] 15:53:00 Test Item Value Reference Range Interpretation Comments POTASSIUM (BEAKER) (test code = 4.2 meq/L 3.5-5.1 379) If last glucose was less than 500, may do bedside glucose instead of serum glucose.POCT-GLUCOSE [id number] 15:37:00 Test Item Value Reference Range Interpretation Comments POC-GLUCOSE METER > mg/dL 70-110 HH OUTSIDE ME ASURING (BEAKER) (test code RANGETES MAGDALENO AT [place] [address] = 1538) [facility] [address] [id number] 14:05:00 Test Item Value Reference Range Interpretation Comments GLUCOSE RANDOM (BEAKER) (test code 682 mg/dL 70-105 HH = 652) If last glucose was less than 500, may do bedside glucose instead of serum glucose.[id number] 14:03:00 Test Item Value Reference Range Interpretation Comments POTASSIUM (BEAKER) (test code = 4.2 meq/L 3.5-5.1 379) If last glucose was less than 500, may do bedside glucose instead of serum glucose.KETONE, [id number] 13:59:00 Test Item Value Reference Range Interpretation Comments KETONES, BLOOD (BEAKER) (test code 0.1 mmol/L <0.4 = 1103) BASIC METABOLIC [id number] 10:48:00 Test Item Value Reference Range Interpretation [...] NOT APPLICABLE FOR DIALYSIS PATIEN TS. TROPONIN [id number] 10:40:00 Test Item Value Reference Range Interpretation [...] acidosis, acute neurological disease, and persistent tachyarrhythmia.POCT-GLUCOSE [id number] 09:51:00 Test Item Value Reference Range Interpretation Comments POC-GLUCOSE METER > mg/dL 70-110 HH OUTSIDE ME ASURING (BEAKER) (test code RANGENot ified JORDON STAPLETON/TESTED = 1538) AT [place] [address] B [facility] 7703 0 POCT-GLUCOSE [id number] 08:34:00 Test Item Value Reference Range Interpretation Comments POC-GLUCOSE METER > mg/dL 70-110 HH OUTSIDE ME ASURING (BEAKER) (test code RANGENot ified JORDON STAPLETON/TESTED = 1538) AT [place] [address] B [facility] 7703 0 RESPIRATORY PANEL [id number] 07:53:00 Test Item Value Reference Range Interpretation [...] (BEAKER) (test code = Inconclusive 3207) HEMOGLOBIN [id number] 07:34:00 Test Item Value Reference Range Interpretation Comments HEMOGLOBIN A1C (BEAKER) (test code = 14.5 % 4.3-6.1 H 368) [id number] 05:23:00 Test Item Value Reference Range Interpretation Comments BLOOD UREA NITROGEN (BEAKER) (test 15 mg/dL 7-21 code = 354) [id number] 05:23:00 Test Item Value Reference Range Interpretation Comments CREATININE (BEAKER) 1.31 mg/dL 0.57-1.25 H (test code = 358) EGFR (BEAKER) (test 60 mL/min/1.73 ESTIMA MAGDALENO GFR IS code = 1092) sq m NOT ACCURATE CREATININE CLEARANCE IN PREDICTING GLOMERULAR FILTRATION RATE . ESTIMATED GFR I S NOT APPLICABLE FOR DIALYSIS PATIEN TS. POCT-LACTIC ACID, [id number] 02:44:00 Test Item Value Reference Range Interpretation Comments POC-LACTIC ACID, 1.4 mmol/L 0.9-1.7 TESTED AT [facility] 6720 [place] (BEAKER) (test [place] code = 2805) [address] TROPONIN [id number] 00:25:00 Test Item Value Reference Range Interpretation [...] Range ChangeNew: 0.5-2.2 mmol/L Previous: 5-20 mg/dLKETONE, [id number] 23:58:00 Test Item Value Reference Range Interpretation Comments KETONES, BLOOD (BEAKER) (test code 0.4 mmol/L <0.4 H = 1103) RAPID STREP A [id number] 23:13:00 Test Item Value Reference Range Interpretation Comments STREP A ANTIGEN (BEAKER) (test code Negative Negative = 556) TROPONIN [id number] 22:54:00 Test Item Value Reference Range Interpretation [...] CK-MB Reference Range:<6.7 Normal6.7-10.0 Borderline>10.0 AbnormalCOMPREHENSIVE METABOLIC [id number] 22:48:00 Test Item Value Reference Range Interpretation [...] FOR DIALYSIS PATIEN TS. RAPID INFLUENZA A&B [id number] 22:47:00 Test Item Value Reference Range Interpretation Comments RAPID INFLUENZA A AG (BEAKER) Negative Negative, Inconclusive (test code = 1622) RAPID INFLUENZA B AG (BEAKER) Negative Negative, Inconclusive (test code = 1623) LACTIC ACID, VENOUS, WHOLE [id number] 22:43:00 Test Item Value Reference Range Interpretation Comments LACTATE BLOOD VENOUS (2) (BEAKER) 0.9 mmol/L 0.5-2.2 (test code = 2872) Effective 02/26/2016: Units/Reference Range ChangeNew: 0.5-2.2 mmol/L Previous: 5-20 mg/dLPOCT-LACTIC ACID, [id number] 22:36:00 Test Item Value Reference Range Interpretation Comments POC-LACTIC ACID, 0.7 mmol/L 0.9-1.7 L TESTED AT [facility] 6720 [place] (BEAKER) (test [place] code = 2805) [address] POCT-GLUCOSE [id number] 22:35:00 Test Item Value Reference Range Interpretation Comments POC-GLUCOSE METER 191 mg/dL 70-110 H TESTED AT [facility] 6720 (BEAKER) (test code = PAUL [place] 1538) [address] CBC W/PLT COUNT & AUTO [id number] 22:33:00 Test Item Value Reference Range Interpretation [...] = 2801) RAD, CHEST, 1 VIEW, NON [id number] 22:18:00Reason for exam:->SHORTNESS OF BREATHShould this be [...] Singer Verified Date/Time: 02/18/2018 22:18:49 Reading Location: [facility] Diagnostic Imaging Reading Room - [place] [address] AFB CULTURE + [id number] 14:30:00 Test Item Value Reference Range Interpretation Comments CULTURE (BEAKER) (test No acid-fast bacilli code = 1095) isolated in 42 days AFB SMEAR (BEAKER) No acid fast bacilli (test code = 994) seen FUNGUS CULTURE + [id number] 15:40:00 Test Item Value Reference Range Interpretation Comments CULTURE (BEAKER) A 1+ Clau (test code = dubliniensis 1095) FUNGUS SMEAR 1+ budding yeast (BEAKER) (test code = 1406) CF RESPIRATORY [id number] 10:56:00 Test Item Value Reference Range Interpretation [...] = 25) Resistant <0 or >4 CULTURE (BANNER) A 4+ Pseudomo viki (test code = 1095) aeruginos a 2+ Normal respiratory derick presentBLOOD [id number] 23:00:00 Test Item Value Reference Range Interpretation Comments CULTURE (BEAKER) (test No growth in 5 days code = 1095) BLOOD [id number] 23:00:00 Test Item Value Reference Range Interpretation Comments CULTURE (BANNER) (test No growth in 5 days code = 1095) POCT-GLUCOSE [id number] 11:04:00 Test Item Value Reference Range Interpretation Comments POC-GLUCOSE METER 107 mg/dL 70-110 TESTED AT [place] [address] (BANNER) (test code = PAUL Tanner [place] 249868) [address] POCT-GLUCOSE [id number] 08:39:00 Test Item Value Reference Range Interpretation Comments POC-GLUCOSE METER 90 mg/dL 70-110 TESTED AT [place] [address] (BANNER) (test code = PAUL Tanner [facility] [address] 1538) POCT-GLUCOSE [id number] 21:21:00 Test Item Value Reference Range Interpretation Comments POC-GLUCOSE METER 63 mg/dL 70-110 L Notified R Collin STAPLETON/TESTED AT (BANNER) (test code = [place] [address] [place] 1538) [facility] 7703 0 POCT-GLUCOSE [id number] 17:03:00 Test Item Value Reference Range Interpretation Comments POC-GLUCOSE METER 61 mg/dL 70-110 L Will Repea t Test/TESTED (BANNER) (test code = AT [place] [address] [place] 1538) [facility] 7703 0 POCT-GLUCOSE [id number] 12:18:00 Test Item Value Reference Range Interpretation Comments POC-GLUCOSE METER 54 mg/dL 70-110 L Notified R N MD/TESTED AT (BANNER) (test code = [facility] 6720 [place] 1538) [facility] 7703 0 POCT-GLUCOSE [id number] 09:59:00 Test Item Value Reference Range Interpretation Comments POC-GLUCOSE METER 173 mg/dL 70-110 H TESTED AT [place] [address] (BANNER) (test code = PAUL Tanner [facility] 1538) [address] BUN AND [id number] 05:43:00 Test Item Value Reference Range Interpretation Comments BLOOD UREA NITROGEN 14 mg/dL 7-21 (BANNER) (test code = 354) CREATININE (BANNER) 0.71 mg/dL 0.57-1.25 (test code = 358) EGFR (BANNER) (test 122 mL/min/1.73 ESTIM ATED GFR IS code = 1092) sq m NOT ACCURATE CREATININE CLEARANCE IN PREDICTING GLOMERULAR FILTRATION RATE . ESTIMATED GFR I S NOT APPLICABLE FOR DIALYSIS PATIEN TS. POCT-GLUCOSE [id number] 22:13:00 Test Item Value Reference Range Interpretation Comments POC-GLUCOSE METER 171 mg/dL 70-110 H TESTED AT [place] [address] (BANNER) (test code = [facility] Ciro [facility] 1538) [address] POCT-GLUCOSE [id number] 17:15:00 Test Item Value Reference Range Interpretation Comments POC-GLUCOSE METER 163 mg/dL 70-110 H TESTED AT [place] [address] (BANNER) (test code = [facility] 1538) [address] SPIN/CONCENTRATION [id number] 15:40:00 Test Item Value Reference Range Interpretation Comments CONCENTRATION CHARGED (BANNER) (test Done code = 2657) POCT-GLUCOSE [id number] 12:57:00 Test Item Value Reference Range Interpretation Comments POC-GLUCOSE METER 210 mg/dL 70-110 H TESTED AT [place] [address] (BANNER) (test code = [facility] 1538) [address] POCT-GLUCOSE [id number] 08:13:00 Test Item Value Reference Range Interpretation Comments POC-GLUCOSE METER 288 mg/dL 70-110 H TESTED AT [place] [address] (BANNER) (test code = [facility] 1538) [address] BUN AND [id number] 04:09:00 Test Item Value Reference Range Interpretation Comments BLOOD UREA NITROGEN 13 mg/dL 7-21 (BANNER) (test code = 354) CREATININE (BANNER) 0.70 mg/dL 0.57-1.25 (test code = 358) EGFR (BEAKER) (test 124 mL/min/1.73 ESTIM ATED GFR IS code = 1092) sq m NOT ACCURATE CREATININE CLEARANCE IN PREDICTING GLOMERULAR FILTRATION RATE . ESTIMATED GFR I S NOT APPLICABLE FOR DIALYSIS PATIEN TS. POCT-GLUCOSE [id number] 21:28:00 Test Item Value Reference Range Interpretation Comments POC-GLUCOSE METER 307 mg/dL 70-110 H TESTED AT [facility] 6720 (BEAKER) (test code = PAUL Tanner [place] 1538) [address] RESPIRATORY PANEL [id number] 19:09:00 Test Item Value Reference Range Interpretation Comments HUMAN METAPNEUMOVIRUS Not detected Not detected, (BEAKER) (test code = Inconclusive 2683) RHINOVIRUS (BEAKER) Not detected Not detected, (test [...] (BEAKER) (test code = Inconclusive 3207) POCT-GLUCOSE [id number] 17:30:00 Test Item Value Reference Range Interpretation Comments POC-GLUCOSE METER 322 mg/dL 70-110 H Will Repea t Test/TESTED (BEAKER) (test code = AT [facility] 67[address] [place] 1538) [facility] 7703 0 URINALYSIS W/ [id number] 15:33:00 Test Item Value Reference Range Interpretation [...] 516) SOURCE(BEAKER) (test code = Urine, Voided 6673) POCT-GLUCOSE [id number] 13:21:00 Test Item Value Reference Range Interpretation Comments POC-GLUCOSE METER 492 mg/dL 70-110 HH Will Repea t Test/TESTED (BEAKER) (test code = AT [facility] 67[address] [place] 1538) [facility] 7703 0 POCT-GLUCOSE [id number] 13:15:00 Test Item Value Reference Range Interpretation Comments POC-GLUCOSE METER > mg/dL 70-110 HH OUTSIDE ME ASURING (BEAKER) (test code = RANGEW ill Repeat 1538) Test/TESTED AT [facility] 6720 [facility] [address] HEMOGLOBIN [id number] 08:57:00 Test Item Value Reference Range Interpretation Comments HEMOGLOBIN A1C (BEAKER) (test code = 13.8 % 4.3-6.1 H 368) HEMOGLOBIN [id number] 08:57:00 Test Item Value Reference Range Interpretation Comments HEMOGLOBIN A1C (BEAKER) (test code = 13.7 % 4.3-6.1 H 368) POCT-GLUCOSE [id number] 07:57:00 Test Item Value Reference Range Interpretation Comments POC-GLUCOSE METER 471 mg/dL 70-110 HH Will Repea t Test/TESTED (BEAKER) (test code = AT [address] 1538) [facility] 7703 0 COMPREHENSIVE METABOLIC [id number] 03:12:00 Test Item Value Reference Range Interpretation [...] APPLICABLE FOR DIALYSIS PATIEN TS. BUN AND [id number] 03:11:00 Test Item Value Reference Range Interpretation [...] 19 U/L 9-64 (test code = 364) [id number] 03:10:00 Test Item Value Reference Range Interpretation Comments PHOSPHORUS (BEAKER) (test code = 3.6 mg/dL 2.3-4.7 604) [id number] 03:05:00 Test Item Value Reference Range Interpretation Comments MAGNESIUM (BEAKER) (test code = 1.6 mg/dL 1.6-2.6 627) CBC W/PLT COUNT & AUTO [id number] 02:46:00 Test Item Value Reference Range Interpretation [...] (test code = 2801) RAD, CHEST, 2 [id number] 22:13:00Reason for exam:->Cystic FibrosisShould this be performed [...] Verified Date/Time: 11/29/2017 22:13:03 Reading Location: [facility] [id number] Consult Reading Room -GLUCOSE [id number] 21:13:00 Test Item Value Reference Range Interpretation Comments POC-GLUCOSE METER > mg/dL 70-110 HH OUTSIDE [place] ASURING (BEAKER) (test code RANGETES MAGDALENO AT [place] [address] = 1538) [facility] [address] POCT-GLUCOSE [id number] 18:02:00 Test Item Value Reference Range Interpretation Comments POC-GLUCOSE METER 292 mg/dL 70-110 H TESTED AT [facility] 67 (BEAKER) (test code = [facility] Ciro [facility] 1538) [address] [id number] 08:10:00 Test Item Value Reference Range Interpretation Comments MAGNESIUM (BEAKER) (test code = 1.4 mg/dL 1.6-2.6 L 627) [id number] 08:10:00 Test Item Value Reference Range Interpretation Comments PHOSPHORUS (BEAKER) (test code = 3.3 mg/dL 2.3-4.7 604) BASIC METABOLIC [id number] 07:41:00 Test Item Value Reference Range Interpretation [...] NOT APPLICABLE FOR DIALYSIS PATIEN TS. KETONE, [id number] 07:13:00 Test Item Value Reference Range Interpretation Comments KETONES, BLOOD (BEAKER) (test code 0.0 mmol/L <0.4 = 1103) BLOOD GAS, [id number] 07:10:00 Test Item Value Reference Range Interpretation [...] (test code = 1819) 21.0 % POCT-GLUCOSE [id number] 06:51:00 Test Item Value Reference Range Interpretation Comments POC-GLUCOSE METER 134 mg/dL 70-110 H TESTED AT [facility] 6720 (BEAKER) (test code = PA[place] 1538) [address] BASIC METABOLIC [id number] 06:32:00 Test Item Value Reference Range Interpretation [...] DIALYSIS PATIEN TS. URINALYSIS W/ REFLEX URINE [id number] 06:19:00 Test Item Value Reference Range Interpretation [...] 1584) SOURCE(BEAKER) (test code = 2795) SCREEN, [id number] 06:07:00 Test Item Value Reference Range Interpretation Comments TEST URINE (BEAKER) (test Negative code = 583) [id number] 05:41:00 Test Item Value Reference Range Interpretation Comments LIPASE (BEAKER) (test code = 749) < U/L 8-78 L HEPATIC FUNCTION [id number] 05:40:00 Test Item Value Reference Range Interpretation [...] 6-55 347) CBC W/PLT COUNT & AUTO [id number] 05:10:00 Test Item Value Reference Range Interpretation [...] (test code = 2801) AFB CULTURE + [id number] 12:29:00 Test Item Value Reference Range Interpretation Comments CULTURE (BEAKER) (test No acid-fast bacilli code = 1095) isolated in 42 days AFB SMEAR (BEAKER) No acid fast bacilli (test code = 994) seen FUNGUS CULTURE + [id number] 09:42:00 Test Item Value Reference Range Interpretation Comments CULTURE (BEAKER) A <1+ Clau (test code = dubliniensis 1095) FUNGUS SMEAR <1+ budding (BEAKER) (test yeast code = 1406) See smear results.POCT-GLUCOSE [id number] 14:27:00 Test Item Value Reference Range Interpretation Comments POC-GLUCOSE METER 255 mg/dL 70-110 H TESTED AT [facility] 6720 (BEAKER) (test code = [place] 1538) [address] POCT-GLUCOSE [id number] 11:59:00 Test Item Value Reference Range Interpretation Comments POC-GLUCOSE METER 157 mg/dL 70-110 H TESTED AT [place] [address] (BANNER) (test code = NAOMIVA Ciro [facility] 1538) [address] POCT-GLUCOSE [id number] 08:51:00 Test Item Value Reference Range Interpretation Comments POC-GLUCOSE METER 57 mg/dL 70-110 L Notified R Collin STAPLETON/TESTED AT (BANNER) (test code = [place] 564728) [facility] 7[address] 0 [id number] 05:55:00 Test Item Value Reference Range Interpretation Comments BLOOD UREA NITROGEN (BANNER) (test 18 mg/dL 7- code = 354) [id number] 05:55:00 Test Item Value Reference Range Interpretation Comments CREATININE (BANNER) 0.69 mg/dL 0.57-1.25 (test code = 358) EGFR (BANNER) (test 126 mL/min/1.73 ESTIM ATED GFR IS code = 1092) sq m NOT ACCURATE CREATININE CLEARANCE IN PREDICTING GLOMERULAR FILTRATION RATE . ESTIMATED GFR I S NOT APPLICABLE FOR DIALYSIS PATIEN TS. POCT-GLUCOSE [id number] 21:24:00 Test Item Value Reference Range Interpretation Comments POC-GLUCOSE METER 139 mg/dL 70-110 H TESTED AT [place] [address] (BANNER) (test code = [facility] 1538) [address] POCT-GLUCOSE [id number] 17:18:00 Test Item Value Reference Range Interpretation Comments POC-GLUCOSE METER 148 mg/dL 70-110 H TESTED AT [place] [address] (BANNER) (test code = [facility] Ciro [facility] 1538) [address] POCT-GLUCOSE [id number] 12:36:00 Test Item Value Reference Range Interpretation Comments POC-GLUCOSE METER 104 mg/dL 70-110 TESTED AT [place] [address] (BANNER) (test code = [facility] 1538) [address] CF RESPIRATORY [id number] 11:18:00 Test Item Value Reference Range Interpretation Comments CULTURE (BANNER) (test code = 1095) Amikacin (test code [...] 25) , Resistant <0 or >4 CULTURE (BANNER) PSEUDOMONAS A 4+ Pseudomo viki (test code [...] 25) , Resistant <0 or >4 CULTURE (BANNER) A 4+ Pseudomo viki (test code = 1095) aeruginos a (Mucoid-phenoty pe) CULTURE (BANNER) A 1+ Streptoc occus (test code = 1095) not group A beta hemolytic 4+ Normal respiratory derick presentPOCT-GLUCOSE [id number] 08:50:00 Test Item Value Reference Range Interpretation Comments POC-GLUCOSE METER 74 mg/dL 70-110 TESTED AT [place] [address] (BANNER) ([facility] [address] 1538) [id number] 06:55:00 Test Item Value Reference Range Interpretation Comments BLOOD UREA NITROGEN (BANNER) (test 25 mg/dL 7-21 H code = 354) [id number] 06:55:00 Test Item Value Reference Range Interpretation Comments CREATININE (BANNER) 0.77 mg/dL 0.57-1.25 (test code = 358) EGFR (BANNER) (test 111 mL/min/1.73 ESTIM ATED GFR IS code = 1092) sq m NOT ACCURATE CREATININE CLEARANCE IN PREDICTING GLOMERULAR FILTRATION RATE . ESTIMATED GFR I S NOT APPLICABLE FOR DIALYSIS PATIEN TS. POCT-GLUCOSE [id number] 21:23:00 Test Item Value Reference Range Interpretation Comments POC-GLUCOSE METER 226 mg/dL 70-110 H TESTED AT [place] [address] (BANNER) (test code = [facility] Ciro [facility] 1538) [address] POCT-GLUCOSE [id number] 17:48:00 Test Item Value Reference Range Interpretation Comments POC-GLUCOSE METER 207 mg/dL 70-110 H TESTED AT [place] [address] (BANNER) (test code = [facility] Ciro [facility] 1538) [address] POCT-GLUCOSE [id number] 13:40:00 Test Item Value Reference Range Interpretation Comments POC-GLUCOSE METER 63 mg/dL 70-110 L TESTED AT [place] [address] (BANNER) (test code = [facility] Ciro [facility] [address] 1538) POCT-GLUCOSE [id number] 12:57:00 Test Item Value Reference Range Interpretation Comments POC-GLUCOSE METER 42 mg/dL 70-110 L Notified Ciro Polanco MD/TESTED AT (BANNER) (test code = [place] [address] [place] 1538) [facility] 7703 0 POCT-GLUCOSE [id number] 08:52:00 Test Item Value Reference Range Interpretation Comments POC-GLUCOSE METER 191 mg/dL 70-110 H TESTED AT [place] [address] ([facility]) (test code = NAOMITAYO Ciro [facility] 1538) [id number] 07:08:00 Test Item Value Reference Range Interpretation Comments BLOOD UREA NITROGEN ([facility]) (test 18 mg/dL 7- code = 354) [id number] 07:08:00 Test Item Value Reference Range Interpretation Comments CREATININE ([facility]) 0.75 mg/dL 0.57-1.25 (test code = 358) EGFR ([facility]) (test 114 mL/min/1.73 ESTIM ATED GFR IS code = 1092) sq m NOT ACCURATE CREATININE CLEARANCE IN PREDICTING GLOMERULAR FILTRATION RATE . ESTIMATED GFR I S NOT APPLICABLE FOR DIALYSIS PATIEN TS. POCT-GLUCOSE [id number] 21:41:00 Test Item Value Reference Range Interpretation Comments POC-GLUCOSE METER 361 mg/dL 70-110 H TESTED AT [place] [address] ([facility]) (test code = NAOMITAYO Ciro [facility] 1538) [id number] POCT-GLUCOSE [id number] 18:53:00 Test Item Value Reference Range Interpretation Comments POC-GLUCOSE METER 96 mg/dL 70-110 TESTED AT [place] [address] ([facility]) (test code = PAUL Tanner [facility] [address] 1538) POCT-GLUCOSE [id number] 18:18:00 Test Item Value Reference Range Interpretation Comments POC-GLUCOSE METER 68 mg/dL 70-110 L Notified Ciro Polanco MD/TESTED AT ([facility]) (test code = [place] [address] [address] [address]) [facility] [id number] 0 POCT-GLUCOSE [id number] 13:46:00 Test Item Value Reference Range Interpretation Comments POC-GLUCOSE METER 142 mg/dL 70-110 H TESTED AT [place] [address] ([facility]) (test code = PAUL Tanner [facility] 1538) [id number] POCT-GLUCOSE [id number] 12:51:00 Test Item Value Reference Range Interpretation Comments POC-GLUCOSE METER 49 mg/dL 70-110 L Notified R Collin STAPLETON/TESTED AT (BANNER) (test code = [address] 1538) [facility] 7703 0 POCT-GLUCOSE [id number] 08:07:00 Test Item Value Reference Range Interpretation Comments POC-GLUCOSE METER 144 mg/dL 70-110 H TESTED AT [place] [address] ([facility]ANNER) (test code = PAUL Tanner [facility] 1538) [address] [id number] 07:32:00 Test Item Value Reference Range Interpretation Comments BLOOD UREA NITROGEN (BANNER) (test 19 mg/dL 05-14 code = 354) [id number] 07:32:00 Test Item Value Reference Range Interpretation Comments CREATININE ([facility]ANNER) 0.73 mg/dL 0.57-1.25 (test code = 358) EGFR (BANNER) (test 118 mL/min/1.73 ESTIM ATED GFR IS code = 1092) sq m NOT ACCURATE CREATININE CLEARANCE IN PREDICTING GLOMERULAR FILTRATION RATE . ESTIMATED GFR I S NOT APPLICABLE FOR DIALYSIS PATIEN TS. POCT-GLUCOSE [id number] 21:59:00 Test Item Value Reference Range Interpretation Comments POC-GLUCOSE METER 211 mg/dL 70-110 H TESTED AT [place] [address] ([facility]ANNER) (test code = PAUL Tanner [facility] 1538) [address] POCT-GLUCOSE [id number] 18:20:00 Test Item Value Reference Range Interpretation Comments POC-GLUCOSE METER 178 mg/dL 70-110 H TESTED AT [place] [address] ([facility]NER) (test code = NAOMIVA Ciro [facility] 1538) [address] [id number] 15:05:00 Test Item Value Reference Range Interpretation Comments BLOOD UREA NITROGEN ([facility]ANNER) (test 15 mg/dL 05-14 code = 354) [id number] 15:05:00 Test Item Value Reference Range Interpretation Comments CREATININE (BANNER) 0.86 mg/dL 0.57-1.25 Specimen slightly (test code = 358) hemolyzed EGFR ([facility]ANNER) (test 97 mL/min/1.73 ESTIMA MAGDALENO GFR IS code = 1092) sq m NOT ACCURATE CREATININE CLEARANCE IN PREDICTING GLOMERULAR FILTRATION RATE . ESTIMATED GFR I S NOT APPLICABLE FOR DIALYSIS PATIEN TS. POCT-GLUCOSE [id number] 12:02:00 Test Item Value Reference Range Interpretation Comments POC-GLUCOSE METER 357 mg/dL 70-110 H TESTED AT [place] [address] ([facility]NER) (test code = PAUL Tanner [facility] 1538) [address] RAD, CHEST, 2 [id number] 10:11:00Reason for exam:->Cystic FibrosisShould this be performed [...] Castellanos Verified Date/Time: 09/24/2017 10:11:13 Reading Location: [facility] Radiology Reading Room POCT-GLUCOSE [id number] 08:09:00 Test Item Value Reference Range Interpretation Comments POC-GLUCOSE METER 331 mg/dL 70-110 H TESTED AT [place] [address] ([facility]) (test code = [facility] Ciro [facility] 1538) [address] POCT-GLUCOSE [id number] 21:28:00 Test Item Value Reference Range Interpretation Comments POC-GLUCOSE METER 473 mg/dL 70-110 HH TESTED AT [place] [address] ([facility]) (test code = [facility] Ciro [facility] 1538) [address] POCT-GLUCOSE [id number] 18:31:00 Test Item Value Reference Range Interpretation Comments POC-GLUCOSE METER 444 mg/dL 70-110 HH TESTED AT [place] [address] ([facility]) (test code = [facility] Ciro [facility] 1538) [address] HEMOGLOBIN [id number] 17:51:00 Test Item Value Reference Range Interpretation Comments HEMOGLOBIN A1C ([facility]NER) (test code = 13.7 % 4.3-6.1 H 368) POCT-GLUCOSE [id number] 17:16:00 Test Item Value Reference Range Interpretation Comments POC-GLUCOSE METER 496 mg/dL 70-110 HH Notified R N MD/TESTED (BEAKER) (test code = AT [facility] [address] 1538) [facility] 7703 0 SPIN/CONCENTRATION [id number] 12:37:00 Test Item Value Reference Range Interpretation Comments CONCENTRATION CHARGED ([facility]ANNER) (test Done code = 2657) POCT-GLUCOSE [id number] 12:28:00 Test Item Value Reference Range Interpretation Comments POC-GLUCOSE METER 492 mg/dL 70-110 HH Notified R N MD/TESTED (BEAKER) (test code = AT [facility] [address] [place] [address] 1538) [facility] 7703 0 [id number] 07:45:00 Test Item Value Reference Range Interpretation Comments BLOOD UREA NITROGEN (BEAKER) (test 10 mg/dL 7- code = 354) [id number] 07:45:00 Test Item Value Reference Range Interpretation Comments CREATININE (BEAKER) 0.76 mg/dL 0.57-1.25 (test code = 358) EGFR (BEAKER) (test 112 mL/min/1.73 ESTIM ATED GFR IS code = 1092) sq m NOT ACCURATE CREATININE CLEARANCE IN PREDICTING GLOMERULAR FILTRATION RATE . ESTIMATED GFR I S NOT APPLICABLE FOR DIALYSIS PATIEN TS. POCT-GLUCOSE [id number] 07:00:00 Test Item Value Reference Range Interpretation Comments POC-GLUCOSE METER 361 mg/dL 70-110 H TESTED AT [facility] 6720 ([facility]ANNER) (test code = PAUL Tanner [place] [address]68) [address] [id number] 23:30:00 Test Item Value Reference Range Interpretation Comments PHOSPHORUS (BEAKER) (test code = 3.8 mg/dL 2.3-4.7 604) [id number] 23:30:00 Test Item Value Reference Range Interpretation Comments MAGNESIUM (BEAKER) (test code = 1.5 mg/dL 1.6-2.6 L 627) COMPREHENSIVE METABOLIC [id number] 23:30:00 Test Item Value Reference Range Interpretation [...] = 364) CBC W/PLT COUNT & AUTO [id number] 23:06:00 Test Item Value Reference Range Interpretation [...] PERCENT (BEAKER) (test code = 2801) POCT-GLUCOSE [id number] 21:16:00 Test Item Value Reference Range Interpretation Comments POC-GLUCOSE METER 168 mg/dL 70-110 H TESTED AT [facility] 6720 (BEAKER) (test code = PA[place] Tanner [place] 1538) [address] AFB CULTURE + [id number] 13:04:00 Test Item Value Reference Range Interpretation Comments CULTURE (BEAKER) (test No acid-fast bacilli code = 1095) isolated in 42 days AFB SMEAR ([facility]ANNER) No acid fast bacilli (test code = 994) seen FUNGUS CULTURE + [id number] 12:05:00 Test Item Value Reference Range Interpretation Comments CULTURE (BANNER) A 2+ Clau (test code = 1095) dubyobanyien sis FUNGUS SMEAR No fungi seen ([facility]ANNER) (test code = 1406) POCT-GLUCOSE [id number] 17:17:00 Test Item Value Reference Range Interpretation Comments POC-GLUCOSE METER 176 mg/dL 70-110 H TESTED AT [place] [address] ([facility]NER) (test code = PAUL Tanner [facility] 1538) [address] POCT-GLUCOSE [id number] 11:57:00 Test Item Value Reference Range Interpretation Comments POC-GLUCOSE METER 392 mg/dL 70-110 H Notified Ciro Polanco MD/TESTED ([facility]) (test code = AT [place] [address] [facility] 1538) [facility] 7703 0 POCT-GLUCOSE [id number] 08:53:00 Test Item Value Reference Range Interpretation Comments POC-GLUCOSE METER 226 mg/dL 70-110 H TESTED AT [place] [address] ([facility]ANNER) (test code = PAUL Tanner [facility] 1538) [address] POCT-GLUCOSE [id number] 08:53:00 Test Item Value Reference Range Interpretation Comments POC-GLUCOSE METER 67 mg/dL 70-110 L TESTED AT [place] [address] ([facility]ANNER) (test code = PAUL Tanner [facility] [address] 1538) BUN AND [id number] 07:15:00 Test Item Value Reference Range Interpretation Comments BLOOD UREA NITROGEN 20 mg/dL 7-21 ([facility]ANNER) (test code = 354) CREATININE (AKER) 0.64 mg/dL 0.57-1.25 (test code = 358) EGFR ([facility]ANNER) (test 138 mL/min/1.73 ESTIM ATED GFR IS code = 1092) sq m NOT ACCURATE CREATININE CLEARANCE IN PREDICTING GLOMERULAR FILTRATION RATE . ESTIMATED GFR I S NOT APPLICABLE FOR DIALYSIS PATIEN TS. BASIC METABOLIC [id number] 07:15:00 Test Item Value Reference Range Interpretation [...] APPLICABLE FOR DIALYSIS PATIEN TS. CF RESPIRATORY [id number] 03:54:00 Test Item Value Reference Interpretation Comments [...] Tobramycin (test S code = 25) CULTURE (BEAKER) PSEUDOMONAS A 4+ Pseudomo viki [...] = 25) 4+ Normal respiratory derick presentPOCT-GLUCOSE [id number] 22:30:00 Test Item Value Reference Range Interpretation Comments POC-GLUCOSE METER 136 mg/dL 70-110 H TESTED AT [place] [address] ([facility]NER) (test code = [facility] 1538) [address] POCT-GLUCOSE [id number] 17:29:00 Test Item Value Reference Range Interpretation Comments POC-GLUCOSE METER 148 mg/dL 70-110 H TESTED AT [place] [address] ([facility]NER) (test code = [facility] 1538) [address] POCT-GLUCOSE [id number] 12:35:00 Test Item Value Reference Range Interpretation Comments POC-GLUCOSE METER 209 mg/dL 70-110 H TESTED AT [place] [address] ([facility]) (test code = [facility] 1538) [address] POCT-GLUCOSE [id number] 08:39:00 Test Item Value Reference Range Interpretation Comments POC-GLUCOSE METER 122 mg/dL 70-110 H TESTED AT [place] [address] ([facility]NER) (test code = [facility] 1538) [address] BUN AND [id number] 07:26:00 Test Item Value Reference Range Interpretation Comments BLOOD UREA NITROGEN 21 mg/dL 7-21 (BANNER) (test code = 354) CREATININE (BANNER) 0.69 mg/dL 0.57-1.25 (test code = 358) EGFR (BANNER) (test 127 mL/min/1.73 ESTIM ATED GFR IS code = 1092) sq m NOT ACCURATE CREATININE CLEARANCE IN PREDICTING GLOMERULAR FILTRATION RATE . ESTIMATED GFR I S NOT APPLICABLE FOR DIALYSIS PATIEN TS. BASIC METABOLIC [id number] 07:26:00 Test Item Value Reference Range Interpretation [...] NOT APPLICABLE FOR DIALYSIS PATIEN TS. POCT-GLUCOSE [id number] 21:03:00 Test Item Value Reference Range Interpretation Comments POC-GLUCOSE METER 265 mg/dL 70-110 H TESTED AT [place] [address] ([facility]NER) [facility] 1538[facility] [address] POCT-GLUCOSE [id number] 17:18:00 Test Item Value Reference Range Interpretation Comments POC-GLUCOSE METER 164 mg/dL 70-110 H TESTED AT [place] [address] ([facility]ANNER) (test code = [facility] Ciro [facility] 1538) [address] POCT-GLUCOSE [id number] 13:11:00 Test Item Value Reference Range Interpretation Comments POC-GLUCOSE METER 101 mg/dL 70-110 TESTED AT [place] [address] ([facility] (test code = [facility] Ciro [facility] 1538) [address] POCT-GLUCOSE [id number] 10:02:00 Test Item Value Reference Range Interpretation Comments POC-GLUCOSE METER 104 mg/dL 70-110 TESTED AT [place] [address] ([facility]NER) (test code = [facility] Ciro [facility] 1538) [address] BASIC METABOLIC [id number] 08:46:00 Test Item Value Reference Range Interpretation Comments SODIUM (BEAKER) 138 meq/L 136-145 (test code = 381) POTASSIUM (BEAKER) 4.1 meq/L 3.5-5.1 (test code = 379) CHLORIDE (BEAKER) 102 meq/L 98-107 (test code = 382) CO2 (BEAKER) (test 27 meq/L 22-29 code = 355) BLOOD UREA NITROGEN 15 mg/dL 7-21 (BANNER) (test code = 354) CREATININE (BEAKER) 0.62 mg/dL 0.57-1.25 (test code = 358) GLUCOSE RANDOM 66 mg/dL 70-105 L (BANNER) (test code = 652) CALCIUM (AKER) 8.9 mg/dL 8.4-10.2 (test code = 697) EGFR (BEAKER) (test 143 mL/min/1.73 ESTIM ATED GFR IS code = 1092) sq m NOT ACCURATE CREATININE CLEARANCE IN PREDICTING GLOMERULAR FILTRATION RATE . ESTIMATED GFR I S NOT APPLICABLE FOR DIALYSIS PATIEN TS. BUN AND [id number] 05:18:00 Test Item Value Reference Range Interpretation Comments BLOOD UREA NITROGEN 17 mg/dL 7- (AKER) (test code = 354) CREATININE (AKER) 0.70 mg/dL 0.57-1.25 (test code = 358) EGFR (AKER) (test 125 mL/min/1.73 ESTIM ATED GFR IS code = 1092) sq m NOT ACCURATE CREATININE CLEARANCE IN PREDICTING GLOMERULAR FILTRATION RATE . ESTIMATED GFR I S NOT APPLICABLE FOR DIALYSIS PATIEN TS. POCT-GLUCOSE [id number] 21:17:00 Test Item Value Reference Range Interpretation Comments POC-GLUCOSE METER 399 mg/dL 70-110 H Notified Ciro Polanco MD/TESTED (BANNER) (test code = AT [place] [address] [place] 1538) [facility] 7703 0 POCT-GLUCOSE [id number] 17:37:00 Test Item Value Reference Range Interpretation Comments POC-GLUCOSE METER 416 mg/dL 70-110 HH TESTED AT [place] [address] ([facility]ANNER) (test code = PAUL Tanner [facility] 1538) [address] POCT-GLUCOSE [id number] 12:45:00 Test Item Value Reference Range Interpretation Comments POC-GLUCOSE METER 291 mg/dL 70-110 H TESTED AT [place] [address] ([facility]ANNER) (test code = PAUL Tanner [facility] 1538) [address] POCT-GLUCOSE [id number] 07:12:00 Test Item Value Reference Range Interpretation Comments POC-GLUCOSE METER 237 mg/dL 70-110 H TESTED AT [place] [address] ([facility]ANNER) (test code = [place] [address]) [address] BUN AND [id number] 04:32:00 Test Item Value Reference Range Interpretation Comments BLOOD UREA NITROGEN 15 mg/dL 7-21 (BANNER) (test code = 354) CREATININE (BANNER) 0.63 mg/dL 0.57-1.25 (test code = 358) EGFR (BANNER) (test 141 mL/min/1.73 ESTIM ATED GFR IS code = 1092) sq m NOT ACCURATE CREATININE CLEARANCE IN PREDICTING GLOMERULAR FILTRATION RATE . ESTIMATED GFR I S NOT APPLICABLE FOR DIALYSIS PATIEN TS. POCT-GLUCOSE [id number] 21:34:00 Test Item Value Reference Range Interpretation Comments POC-GLUCOSE METER 321 mg/dL 70-110 H Notified Ciro Polanco MD/[place] ([facility]ANNER) (test code = AT [place] [address]) [facility] 7703 0 POCT-GLUCOSE [id number] 17:53:00 Test Item Value Reference Range Interpretation Comments POC-GLUCOSE METER 392 mg/dL 70-110 H TESTED AT [place] [address] (BANNER) (test code = [place] [address]) [address] POCT-GLUCOSE [id number] 12:39:00 Test Item Value Reference Range Interpretation Comments POC-GLUCOSE METER 306 mg/dL 70-110 H TESTED AT [place] [address] ([facility]ANNER) (test code = [place] [address]) [address] POCT-GLUCOSE [id number] 08:24:00 Test Item Value Reference Range Interpretation Comments POC-GLUCOSE METER 304 mg/dL 70-110 H TESTED AT [place] [address] (BANNER) (test code = [place] [address]) [address] BUN AND [id number] 05:48:00 Test Item Value Reference Range Interpretation Comments BLOOD UREA NITROGEN 19 mg/dL 7-21 (BANNER) (test code = 354) CREATININE (BANNER) 0.91 mg/dL 0.57-1.25 (test code = 358) EGFR (BANNER) (test 92 mL/min/1.73 ESTIMA MAGDALENO GFR IS code = 1092) sq m NOT ACCURATE CREATININE CLEARANCE IN PREDICTING GLOMERULAR FILTRATION RATE . ESTIMATED GFR I S NOT APPLICABLE FOR DIALYSIS PATIEN TS. POCT-GLUCOSE [id number] 21:41:00 Test Item Value Reference Range Interpretation Comments POC-GLUCOSE METER 221 mg/dL 70-110 H TESTED AT [place] [address] (BANNER) (test code = PAUL Tanner [facility] 1538) [address] POCT-GLUCOSE [id number] 17:13:00 Test Item Value Reference Range Interpretation Comments POC-GLUCOSE METER 321 mg/dL 70-110 H Notified R Collin or (BANNER) (test code = Patidhaval cooney refused repeat 1538) test/TESTED AT [place] [address] [facility] [place] [address] BUN AND [id number] 16:20:00 Test Item Value Reference Range Interpretation Comments BLOOD UREA NITROGEN 10 mg/dL 7-21 (BANNER) (test code = 354) CREATININE (BANNER) 0.60 mg/dL 0.57-1.25 (test code = 358) EGFR (BANNER) (test 149 mL/min/1.73 ESTIM ATED GFR IS code = 1092) sq m NOT ACCURATE CREATININE CLEARANCE IN PREDICTING GLOMERULAR FILTRATION RATE . ESTIMATED GFR I S NOT APPLICABLE FOR DIALYSIS ADELIA TS. POCT-GLUCOSE [id number] 11:55:00 Test Item Value Reference Range Interpretation Comments POC-GLUCOSE METER 200 mg/dL 70-110 H TESTED AT [place] [address] (BANNER) (test code = PAUL Tanner [facility] 1538) [address] POCT-GLUCOSE [id number] 08:16:00 Test Item Value Reference Range Interpretation Comments POC-GLUCOSE METER 419 mg/dL 70-110 HH TESTED AT [place] [address] ([facility]ANNER) (test code = PAUL Tanner [facility] 1538) [address] POCT-GLUCOSE [id number] 21:09:00 Test Item Value Reference Range Interpretation Comments POC-GLUCOSE METER 376 mg/dL 70-110 H TESTED AT [place] [address] (BANNER) (test code = PAUL Tanner [facility] 1538) [address] POCT-GLUCOSE [id number] 17:27:00 Test Item Value Reference Range Interpretation Comments POC-GLUCOSE METER 267 mg/dL 70-110 H TESTED AT [place] [address] (BANNER) (test code = PAUL Tanner [facility] 1538) [address]73 POCT-GLUCOSE [id number] 13:54:00 Test Item Value Reference Range Interpretation Comments POC-GLUCOSE METER 197 mg/dL 70-110 H TESTED AT [facility] 6720 (BEAKER) (test code = NAOMITAYO Ciro [facility] 1538) [address] POCT-GLUCOSE [id number] 12:34:00 Test Item Value Reference Range Interpretation Comments POC-GLUCOSE METER > mg/dL 70-110 HH OUTSIDE ME ASURING (BEAKER) (test code RANGETES MAGDALENO AT [place] [address] = 1538) [facility] [address] POCT-GLUCOSE [id number] 08:15:00 Test Item Value Reference Range Interpretation Comments POC-GLUCOSE METER 387 mg/dL 70-110 H Notified R N MD/TESTED (BEAKER) (test code = AT [facility] [address] 1538) [facility] 7[address] 0 BASIC METABOLIC [id number] 05:17:00 Test Item Value Reference Range Interpretation [...] NOT APPLICABLE FOR DIALYSIS PATIEN TS. SPIN/CONCENTRATION [id number] 05:13:00 Test Item Value Reference Range Interpretation Comments CONCENTRATION CHARGED (BEAKER) (test Done code = 2657) URINALYSIS W/ [id number] 01:00:00 Test Item Value Reference Range Interpretation [...] 516) SOURCE(BEAKER) (test code = Urine, Voided 3139) SCREEN, [id number] 00:55:00 Test Item Value Reference Range Interpretation Comments TEST URINE (BEAKER) (test Negative code = 583) POCT-GLUCOSE [id number] 21:10:00 Test Item Value Reference Range Interpretation Comments POC-GLUCOSE METER 342 mg/dL 70-110 H TESTED AT [place] [address] (BANNER) (test code = [facility] 1538) [address] HEMOGLOBIN [id number] 19:26:00 Test Item Value Reference Range Interpretation Comments HEMOGLOBIN A1C (BEAKER) (test code = 15.4 % 4.3-6.1 H 368) POCT-GLUCOSE [id number] 19:20:00 Test Item Value Reference Range Interpretation Comments POC-GLUCOSE METER 470 mg/dL 70-110 HH TESTED AT [place] [address] (BANNER) (test code = [facility] 1538) [address] COMPREHENSIVE METABOLIC [id number] 19:10:00 Test Item Value Reference Range Interpretation [...] S NOT APPLICABLE FOR DIALYSIS PATIEN TS. [id number] 19:07:00 Test Item Value Reference Range Interpretation Comments PHOSPHORUS (BEAKER) (test code = 3.4 mg/dL 2.3-4.7 604) [id number] 19:07:00 Test Item Value Reference Range Interpretation Comments MAGNESIUM (BEAKER) (test code = 1.5 mg/dL 1.6-2.6 L 627) GAMMA GLUTAMYL TRANSFERASE (GGT)[id number] 19:07:00 Test Item Value Reference Range Interpretation Comments GAMMA GLUTAMYL TRANSFERASE (BEAKER) 24 U/L 9-64 (test code = 364) CBC W/PLT COUNT & AUTO [id number] 18:40:00 Test Item Value Reference Range Interpretation [...] (test code = 2801) AFB CULTURE + [id number] 07:09:00 Test Item Value Reference Range Interpretation Comments CULTURE (BEAKER) (test No acid-fast bacilli code = 1095) isolated in 42 days AFB SMEAR (BEAKER) No acid fast bacilli (test code = 994) seen POCT-GLUCOSE [id number] 12:37:00 Test Item Value Reference Range Interpretation Comments POC-GLUCOSE METER 215 mg/dL 70-110 H TESTED AT [facility] 6720 (BEAKER) (test code = PAUL Tanner [place] 1538) [address] POCT-GLUCOSE [id number] 08:48:00 Test Item Value Reference Range Interpretation Comments POC-GLUCOSE METER 264 mg/dL 70-110 H TESTED AT [facility] 6720 ([facility]) (test code = PAUL Tanner [place] 1538) [address] [id number] 06:25:00 Test Item Value Reference Range Interpretation Comments PHOSPHORUS (BEAKER) (test code = 4.3 mg/dL 2.3-4.7 604) [id number] 06:25:00 Test Item Value Reference Range Interpretation Comments MAGNESIUM (BEAKER) (test code = 1.8 mg/dL 1.6-2.6 627) BASIC METABOLIC [id number] 06:25:00 Test Item Value Reference Range Interpretation [...] PATIEN TS. CBC W/PLT COUNT & AUTO [id number] 06:01:00 Test Item Value Reference Range Interpretation [...] 0.00-0.20 (test code = 417) 0.00CF RESPIRATORY [id number] 00:39:00 Test Item Value Reference Range Interpretation [...] = 472) 3+ Normal respiratory derick presentPOCT-GLUCOSE [id number] 21:38:00 Test Item Value Reference Range Interpretation Comments POC-GLUCOSE METER 221 mg/dL 70-110 H TESTED AT [facility] InboxQ (REES46) (test code = PAUL Tanner [facility] 1538) [address] POCT-GLUCOSE [id number] 17:55:00 Test Item Value Reference Range Interpretation Comments POC-GLUCOSE METER 146 mg/dL 70-110 H TESTED AT [facility] InboxQ (REES46) (test code = NAOMIVA Ciro [facility] 1538) [address] POCT-GLUCOSE [id number] 12:18:00 Test Item Value Reference Range Interpretation Comments POC-GLUCOSE METER 249 mg/dL 70-110 H TESTED AT [facility] 6720 (BEAKER) (test code = [place] 1538) [address] CBC W/PLT COUNT & AUTO [id number] 11:26:00 Test Item Value Reference Range Interpretation Comments WHITE BLOOD CELL COUNT (BEAKER) 11.6 K/ L 4.0-10.0 H (test code = 775) RED BLOOD CELL COUNT (BEAKER) 3.75 M/ L 4.00-5.00 L (test code = 761) HEMOGLOBIN (BEAKER) (test code = 10.4 GM/DL 12.0-15.0 L 410) HEMATOCRIT (BEAKER) (test code = 32.6 % 36.0-45.0 L 411) MEAN CORPUSCULAR VOLUME (BEAKER) 86.9 fL 82.0-99.0 (test code = 753) [...] K/ L 0.00-0.20 (test code = 417) [id number] 11:23:00 Test Item Value Reference Range Interpretation Comments MAGNESIUM (BEAKER) (test code = 1.3 mg/dL 1.6-2.6 L 627) BASIC METABOLIC [id number] 11:23:00 Test Item Value Reference Range Interpretation [...] NOT APPLICABLE FOR DIALYSIS PATIEN TS. SCREEN, [id number] 11:22:00 Test Item Value Reference Range Interpretation Comments TEST URINE (BEAKER) (test Negative code = 583) POCT-GLUCOSE [id number] 08:09:00 Test Item Value Reference Range Interpretation Comments POC-GLUCOSE METER 264 mg/dL 70-110 H TESTED AT [facility] 6720 (BEAKER) (test code = PAUL Ciro [place] 1538) [address] POCT-GLUCOSE [id number] 22:02:00 Test Item Value Reference Range Interpretation Comments POC-GLUCOSE METER 221 mg/dL 70-110 H TESTED AT [place] [address] (BEAKER) (test code = PAUL Tanner [facility] 1538) [address] POCT-GLUCOSE [id number] 17:16:00 Test Item Value Reference Range Interpretation Comments POC-GLUCOSE METER 173 mg/dL 70-110 H TESTED AT [place] [address] (BEAKER) (test code = PAUL Tanner [facility] 1538) [address] POCT-GLUCOSE [id number] 13:38:00 Test Item Value Reference Range Interpretation Comments POC-GLUCOSE METER 155 mg/dL 70-110 H TESTED AT [place] [address] (BEAKER) (test code = PAUL Tanner [facility] 1538) [address] POCT-GLUCOSE [id number] 09:15:00 Test Item Value Reference Range Interpretation Comments POC-GLUCOSE METER 258 mg/dL 70-110 H TESTED AT [place] [address] ([facility]) (test code = PAUL Tanner [facility] 1538) [address] CBC W/PLT COUNT & AUTO [id number] 06:38:00 Test Item Value Reference Range Interpretation [...] K/ L 0.00-0.20 (test code = 417) [id number] 06:33:00 Test Item Value Reference Range Interpretation Comments MAGNESIUM (BEAKER) (test code = 1.3 mg/dL 1.6-2.6 L 627) BASIC METABOLIC [id number] 06:33:00 Test Item Value Reference Range Interpretation [...] NOT APPLICABLE FOR DIALYSIS PATIEN TS. POCT-GLUCOSE [id number] 22:04:00 Test Item Value Reference Range Interpretation Comments POC-GLUCOSE METER 336 mg/dL 70-110 H TESTED AT [place] [address] ([facility]) (test code = [facility] 1538) [address] POCT-GLUCOSE [id number] 17:40:00 Test Item Value Reference Range Interpretation Comments POC-GLUCOSE METER 281 mg/dL 70-110 H TESTED AT [place] [address] ([facility]) (test code = [facility] 1538) [address] POCT-GLUCOSE [id number] 11:41:00 Test Item Value Reference Range Interpretation Comments POC-GLUCOSE METER 412 mg/dL 70-110 HH TESTED AT [place] [address] ([facility]) (test code = [facility] 1538) [address] BASIC METABOLIC [id number] 09:00:00 Test Item Value Reference Range Interpretation [...] NOT APPLICABLE FOR DIALYSIS PATIEN TS. POCT-GLUCOSE [id number] 08:49:00 Test Item Value Reference Range Interpretation Comments POC-GLUCOSE METER 444 mg/dL 70-110 HH Notified R Collin [facility]/TESTED ([facility]) (test code = AT [address] 8581) [facility] 7703 0 [id number] 08:44:00 Test Item Value Reference Range Interpretation Comments MAGNESIUM (BEAKER) (test code = 1.3 mg/dL 1.6-2.6 L 627) CBC W/PLT COUNT & AUTO [id number] 08:26:00 Test Item Value Reference Range Interpretation [...] EOSINOPHILS ABSOLUTE COUNT 0.01 K/ L 0.00-0.50 (BANNER) (test code = 416) BASOPHILS ABSOLUTE COUNT (BANNER) 0.00 K/ L 0.00-0.20 (test code = 417) 0.00POCT-GLUCOSE [id number] 21:23:00 Test Item Value Reference Range Interpretation Comments POC-GLUCOSE METER 176 mg/dL 70-110 H TESTED AT [place] [address] (BANNER) (test code = PAUL Tanner [facility] 1538) [address]65 HEMOGLOBIN [id number] 21:21:00 Test Item Value Reference Range Interpretation Comments HEMOGLOBIN A1C (BANNER) (test code = 12.1 % 4.3-6.1 H 368) POCT-GLUCOSE [id number] 18:03:00 Test Item Value Reference Range Interpretation Comments POC-GLUCOSE METER 270 mg/dL 70-110 H TESTED AT [place] [address] (BANNER) (test code = [place] 24[address]68) [address] POCT-GLUCOSE [id number] 11:22:00 Test Item Value Reference Range Interpretation Comments POC-GLUCOSE METER 347 mg/dL 70-110 H Notified Ciro Polanco MD/TESTED (BANNER) (test code = AT [address] [address] POCT-GLUCOSE [id number] 08:31:00 Test Item Value Reference Range Interpretation Comments POC-GLUCOSE METER 280 mg/dL 70-110 H TESTED AT [place] [address] (BANNER) (test code = PAUL Tanner [facility] 1538) [address] POCT-GLUCOSE [id number] 06:03:00 Test Item Value Reference Range Interpretation Comments POC-GLUCOSE METER 277 mg/dL 70-110 H TESTED AT [place] [address] (BANNER) (test code = NAOMITAYO Tanner [facility] 1538) 19960 POCT-GLUCOSE [id number] 22:13:00 Test Item Value Reference Range Interpretation Comments POC-GLUCOSE METER 404 mg/dL 70-110 HH TESTED AT [place] [address] (BANNER) (test code = PAUL Tanner [facility] 1538) 9[address] POCT-GLUCOSE [id number] 17:49:00 Test Item Value Reference Range Interpretation Comments POC-GLUCOSE METER 485 mg/dL 70-110 HH Notified R Collin STAPLETON/TESTED (BEAKER) (test code = AT [facility] 67[address] [facility] 1538) [facility] 7703 0 POCT-GLUCOSE [id number] 11:49:00 Test Item Value Reference Range Interpretation Comments POC-GLUCOSE METER 142 mg/dL 70-110 H TESTED AT [facility] 6720 (BEAKER) (test code = PAUL Tanner [facility] 1538) 9[address] CBC W/PLT COUNT & AUTO [id number] 08:39:00 Test Item Value Reference Range Interpretation Comments WHITE BLOOD CELL COUNT (BEAKER) 9.2 K/ L 4.0-10.0 (test code = 775) RED BLOOD CELL COUNT (BEAKER) 4.24 M/ L 4.00-5.00 (test code = 761) HEMOGLOBIN (BEAKER) (test code = 11.6 GM/DL 12.0-15.0 L 410) HEMATOCRIT (BEAKER) (test code = 37.7 % 36.0-45.0 411) [...] L 0.00-0.20 (test code = 417) 0.00POCT-GLUCOSE [id number] 08:05:00 Test Item Value Reference Range Interpretation Comments POC-GLUCOSE METER 380 mg/dL 70-110 H Notified R Collin STAPLETON/TESTED (BEAKER) (test code = AT [facility] [address] 8070) [facility] 7703 0 COMPREHENSIVE METABOLIC [id number] 07:44:00 Test Item Value Reference Range Interpretation [...] S NOT APPLICABLE FOR DIALYSIS PATIEN TS. [id number] 07:41:00 Test Item Value Reference Range Interpretation Comments FERRITIN (BEAKER) (test code = 361) 126 ng/mL 5-275 Effective 09/11/2014: Reference Range ChangeNew: Male 5-275 Previous: Male 22-322 Female 5-275 Female 10-291TSH/FREE T4 IF INDICATED 2017-04-29 07:41:00 Test Item Value Reference Range Interpretation Comments THYROID STIMULATING HORMONE 1.94 uIU/mL 0.35-4.94 (BEAKER) (test code = 772) [id number] 07:33:00 Test Item Value Reference Range Interpretation Comments MAGNESIUM (BEAKER) (test code = 1.3 mg/dL 1.6-2.6 L 627) LIPID [id number] 07:33:00 Test Item Value Reference Range Interpretation [...] 100-129 Borderline 130-159 High 160-189 Very High >=[id number] 07:33:00 Test Item Value Reference Range Interpretation Comments PREALBUMIN (BEAKER) (test code = 13 mg/dL 14-45 L 586) IRON, TIBC, % SAT. (WITHOUT FERRITIN)2017-04-29 07:33:00 Test Item Value Reference Range Interpretation Comments IRON ([facility] (test code = 547) 35 ug/dL 40-160 L TOTAL IRON BINDING CAPACITY 310 ug/dL 250-450 (BANNER) (test code = 769) IRON % SATURATION (2) (BANNER) 11 % 20-55 L (test code = 2590) [id number] 07:24:00 Test Item Value Reference Range Interpretation Comments PROTIME ([facility]) (test code = 13.3 seconds 11.7-14.7 759) INR (BANNER) (test code = 370) 1.0 <=5.9 PARTIAL THROMBOPLASTIN TIME 35.2 seconds 22.5-36.0 (BANNER) (test code = 760) RECOMMENDED COUMADIN/WARFARIN INR THERAPY RANGESSTANDARD DOSE: 2.0 - 3.0 Includes: PROPHYLAXIS forvenous thrombosis, systemic embolization; TREATMENT for venous thrombosis and/or pulmonary embolus.HIGH RISK: Target INR is 2.5-3.5 for patients with mechanical heart valves.POCT-GLUCOSE [id number] 21:48:00 Test Item Value Reference Range Interpretation Comments POC-GLUCOSE METER 289 mg/dL 70-110 H TESTED AT [place] [address] (BANNER) (test code = [facility] 1538) 8[address] POCT-GLUCOSE [id number] 18:49:00 Test Item Value Reference Range Interpretation Comments POC-GLUCOSE METER 492 mg/dL 70-110 HH TESTED AT [place] [address] (BANNER) (test code = [facility] 1538) 9[address] CF RESPIRATORY [id number] 06:58:00 Test Item Value Reference Range Interpretation Comments CULTURE (BANNER) (test PSEUDOMONAS A 1+ Ps eudomonas code [...] + Sulfamethoxazole (test code = 47) CULTURE (AKER) (test PSEUDOMONAS A 2+ Ps eudomonas code [...] 1+ Normal respiratory derick presentFUNGUS CULTURE + [id number] 11:05:00 Test Item Value Reference Range Interpretation Comments CULTURE (BANNER) A 1+ Clau glabrata (test code = 1095) FUNGUS SMEAR No fungi seen (BANNER) (test code = 1406) POCT-GLUCOSE [id number] 12:28:00 Test Item Value Reference Range Interpretation Comments POC-GLUCOSE METER 112 mg/dL 70-110 H TESTED AT [place] [address] (BANNER) (test code = [facility] 1538) [address] POCT-GLUCOSE [id number] 08:33:00 Test Item Value Reference Range Interpretation Comments POC-GLUCOSE METER 144 mg/dL 70-110 H TESTED AT [place] [address] (BANNER) (test code = [facility] 1538) [address] BUN AND [id number] 05:40:00 Test Item Value Reference Range Interpretation Comments BLOOD UREA NITROGEN 17 mg/dL 7-21 (BANNER) (test code = 354) CREATININE (BANNER) 0.60 mg/dL 0.57-1.25 (test code = 358) EGFR (BANNER) (test 149 mL/min/1.73 ESTIM ATED GFR IS code = 1092) sq m NOT ACCURATE CREATININE CLEARANCE IN PREDICTING GLOMERULAR FILTRATION RATE . ESTIMATED GFR I S NOT APPLICABLE FOR DIALYSIS PATIEN TS. POCT-GLUCOSE [id number] 21:09:00 Test Item Value Reference Range Interpretation Comments POC-GLUCOSE METER 154 mg/dL 70-110 H TESTED AT [place] [address] (BANNER) (test code = [facility] 1538) 78342 POCT-GLUCOSE [id number] 17:37:00 Test Item Value Reference Range Interpretation Comments POC-GLUCOSE METER 176 mg/dL 70-110 H TESTED AT [place] [address] (BANNER) (test code = [facility] 1538) 55134 POCT-GLUCOSE [id number] 13:59:00 Test Item Value Reference Range Interpretation Comments POC-GLUCOSE METER 126 mg/dL 70-110 H TESTED AT [place] [address] (BANNER) (test code = [facility] 1538) 38181 POCT-GLUCOSE [id number] 11:39:00 Test Item Value Reference Range Interpretation Comments POC-GLUCOSE METER 113 mg/dL 70-110 H TESTED AT [place] [address] (BANNER) (test code = [facility] 1538) 74471 POCT-GLUCOSE [id number] 08:59:00 Test Item Value Reference Range Interpretation Comments POC-GLUCOSE METER 99 mg/dL 70-110 TESTED AT [place] [address] (BANNER) (test code = [facility] [address] 1538) BUN AND [id number] 06:11:00 Test Item Value Reference Range Interpretation Comments BLOOD UREA NITROGEN 18 mg/dL 7-21 (BANNER) (test code = 354) CREATININE (BANNER) 0.65 mg/dL 0.57-1.25 (test code = 358) EGFR (BANNER) (test 136 mL/min/1.73 ESTIM ATED GFR IS code = 1092) sq m NOT ACCURATE CREATININE CLEARANCE IN PREDICTING GLOMERULAR FILTRATION RATE . ESTIMATED GFR I S NOT APPLICABLE FOR DIALYSIS PATIEN TS. POCT-GLUCOSE [id number] 21:43:00 Test Item Value Reference Range Interpretation Comments POC-GLUCOSE METER 110 mg/dL 70-110 TESTED AT [place] [address] (BANNER) (test code = [facility] 1538) 88948 POCT-GLUCOSE [id number] 18:34:00 Test Item Value Reference Range Interpretation Comments POC-GLUCOSE METER 336 mg/dL 70-110 H TESTED AT [place] [address] (BANNER) (test code = [facility] 1538) 87023 POCT-GLUCOSE [id number] 17:53:00 Test Item Value Reference Range Interpretation Comments POC-GLUCOSE METER 150 mg/dL 70-110 H TESTED AT [place] [id number] (BEAKER) (test code = PAUL Tanner [place] 1538) [address] POCT-GLUCOSE [id number] 12:04:00 Test Item Value Reference Range Interpretation Comments POC-GLUCOSE METER 295 mg/dL 70-110 H TESTED AT [facility] 6720 (BEAKER) (test code = PAUL Tanner [place] 1538) [address] POCT-GLUCOSE [id number] 09:25:00 Test Item Value Reference Range Interpretation Comments POC-GLUCOSE METER 52 mg/dL 70-110 L Notified Ciro Polanco MD/TESTED AT ([facility]) (test code = [address] 1538) [facility] 7703 0 BASIC METABOLIC [id number] 06:59:00 Test Item Value Reference Range Interpretation [...] NOT APPLICABLE FOR DIALYSIS PATIEN TS. BLOOD [id number] 00:00:00 Test Item Value Reference Range Interpretation Comments CULTURE (BEAKER) (test No growth in 5 days code = 1095) BLOOD [id number] 00:00:00 Test Item Value Reference Range Interpretation Comments CULTURE (BEAKER) (test No growth in 5 days code = 1095) POCT-GLUCOSE [id number] 22:01:00 Test Item Value Reference Range Interpretation Comments POC-GLUCOSE METER 177 mg/dL 70-110 H TESTED AT [place] [address] (BANNER) (test code = PAUL Tanner [place] 1538) [address] POCT-GLUCOSE [id number] 18:32:00 Test Item Value Reference Range Interpretation Comments POC-GLUCOSE METER 118 mg/dL 70-110 H TESTED AT [place] [address] (BANNER) (test code = PAUL Tanner [place] 1538) [address] POCT-GLUCOSE [id number] 17:29:00 Test Item Value Reference Range Interpretation Comments POC-GLUCOSE METER 69 mg/dL 70-110 L TESTED AT [place] [address] (BANNER) (test code = PAUL Tanner [facility] [address] 1538) POCT-GLUCOSE [id number] 14:12:00 Test Item Value Reference Range Interpretation Comments POC-GLUCOSE METER 141 mg/dL 70-110 H TESTED AT [place] [address] (BANNER) (test code = PAUL Tanner [place] 1538) [address] POCT-GLUCOSE [id number] 10:01:00 Test Item Value Reference Range Interpretation Comments POC-GLUCOSE METER 220 mg/dL 70-110 H TESTED AT [place] [address] (BANNER) (test code = PAUL Tanner [place] 1538) [address] POCT-GLUCOSE [id number] 08:51:00 Test Item Value Reference Range Interpretation Comments POC-GLUCOSE METER 220 mg/dL 70-110 H TESTED AT [place] [address] (BANNER) (test code = PAUL Tanner [place] 1538) [address] POCT-GLUCOSE [id number] 21:45:00 Test Item Value Reference Range Interpretation Comments POC-GLUCOSE METER 306 mg/dL 70-110 H TESTED AT [place] [address] (BANNER) (test code = PAUL Tanner [place] 1538) [address] POCT-GLUCOSE [id number] 20:06:00 Test Item Value Reference Range Interpretation Comments POC-GLUCOSE METER 392 mg/dL 70-110 H TESTED AT [place] [address] (BANNER) (test code = PAUL Tanner [place] 1538) [address] POCT-GLUCOSE [id number] 15:28:00 Test Item Value Reference Range Interpretation Comments POC-GLUCOSE METER 403 mg/dL 70-110 HH Notified R N or (BANNER) (test code = Patien t refused repeat 1537) test/TESTED AT [place] [address] [facility] [address] [id number] 12:43:00 Test Item Value Reference Range Interpretation Comments BLOOD UREA NITROGEN (BANNER) (test 18 mg/dL 7 code = 354) [id number] 12:43:00 Test Item Value Reference Range Interpretation Comments CREATININE (BANNER) 0.84 mg/dL 0.57-1.25 (test code = 358) EGFR (BANNER) (test 101 mL/min/1.73 ESTIM ATED GFR IS code = 1092) sq m NOT ACCURATE CREATININE CLEARANCE IN PREDICTING GLOMERULAR FILTRATION RATE . ESTIMATED GFR I S NOT APPLICABLE FOR DIALYSIS ADELIA TS. POCT-GLUCOSE [id number] 12:25:00 Test Item Value Reference Range Interpretation Comments POC-GLUCOSE METER 382 mg/dL 70-110 H TESTED AT [place] [address] (BANNER) (test code = PAUL Tanner [facility] 1538) 31564 POCT-GLUCOSE [id number] 08:23:00 Test Item Value Reference Range Interpretation Comments POC-GLUCOSE METER 95 mg/dL 70-110 TESTED AT [place] [address] (BANNER) (test code = [facility] Ciro [facility] [address] 1538) POCT-GLUCOSE [id number] 22:45:00 Test Item Value Reference Range Interpretation Comments POC-GLUCOSE METER 153 mg/dL 70-110 H TESTED AT [place] [address] (BANNER) (test code = [facility] Ciro [facility] 1538) [address]91 POCT-GLUCOSE [id number] 17:40:00 Test Item Value Reference Range Interpretation Comments POC-GLUCOSE METER 316 mg/dL 70-110 H Notified R Collin or (BANNER) (test code = Patien t refused repeat 153) test/TESTED AT [place] [address] [facility] [address] POCT-GLUCOSE [id number] 12:12:00 Test Item Value Reference Range Interpretation Comments POC-GLUCOSE METER 279 mg/dL 70-110 H TESTED AT [place] [address] (BANNER) (test code = [facility] Ciro [facility] 1538) 109[address] RESPIRATORY PANEL [id number] 11:36:00 Test Item Value Reference Range Interpretation [...] (BEAKER) (test code = Inconclusive 3207) POCT-GLUCOSE [id number] 08:37:00 Test Item Value Reference Range Interpretation Comments POC-GLUCOSE METER 302 mg/dL 70-110 H Verify wit h Lab (BEAKER) (test code = draw/T ESTED AT [facility] 1538) [address] [facility] [address] [id number] 07:38:00 Test Item Value Reference Range Interpretation Comments BLOOD UREA NITROGEN (BANNER) (test 13 mg/dL 7-21 code = 354) [id number] 07:38:00 Test Item Value Reference Range Interpretation Comments CREATININE (AKER) 0.83 mg/dL 0.57-1.25 (test code = 358) EGFR (BANNER) (test 102 mL/min/1.73 ESTIM ATED GFR IS code = 1092) sq m NOT ACCURATE CREATININE CLEARANCE IN PREDICTING GLOMERULAR FILTRATION RATE . ESTIMATED GFR I S NOT APPLICABLE FOR DIALYSIS PATIEN TS. POCT-GLUCOSE [id number] 23:25:00 Test Item Value Reference Range Interpretation Comments POC-GLUCOSE METER 376 mg/dL 70-110 H TESTED AT [place] [address] (BANNER) (test code = [facility] 1538) 88796 POCT-GLUCOSE [id number] 21:02:00 Test Item Value Reference Range Interpretation Comments POC-GLUCOSE METER 339 mg/dL 70-110 H Notified R Collin STAPLETON/TESTED (BANNER) (test code = AT [place] [address]) [facility] 7703 0 SPIN/CONCENTRATION [id number] 16:49:00 Test Item Value Reference Range Interpretation Comments CONCENTRATION CHARGED (BANNER) (test Done code = 2657) URINE [id number] 14:16:00 Test Item Value Reference Range Interpretation Comments CULTURE (BANNER) (test code = See comment 1095) <10,000 col/mL YEAST>100,000 col/mL skin floraPOCT-GLUCOSE [id number] 12:23:00 Test Item Value Reference Range Interpretation Comments POC-GLUCOSE METER 259 mg/dL 70-110 H TESTED AT [place] [address] (BANNER) (test code = [facility] 1538) [address] [id number] 10:26:00 Test Item Value Reference Range Interpretation Comments CREATININE (AKER) 0.77 mg/dL 0.57-1.25 (test code = 358) EGFR (BANNER) (test 112 mL/min/1.73 ESTIM ATED GFR IS code = 1092) sq m NOT ACCURATE CREATININE CLEARANCE IN PREDICTING GLOMERULAR FILTRATION RATE . ESTIMATED GFR I S NOT APPLICABLE FOR DIALYSIS PATIEN TS. [id number] 10:08:00 Test Item Value Reference Range Interpretation Comments BLOOD UREA NITROGEN (BEAKER) (test 17 mg/dL 7-21 code = 354) POCT-GLUCOSE [id number] 09:04:00 Test Item Value Reference Range Interpretation Comments POC-GLUCOSE METER 173 mg/dL 70-110 H TESTED AT [place] [address] (BEAKER) (test code = PAUL Tanner [place] 1538) [address] POCT-GLUCOSE [id number] 21:10:00 Test Item Value Reference Range Interpretation Comments POC-GLUCOSE METER 151 mg/dL 70-110 H TESTED AT [place] [address] (BEAKER) (test code = [facility] Ciro [facility] 1538) [address] SCREEN, [id number] 20:03:00 Test Item Value Reference Range Interpretation Comments TEST URINE (BEAKER) (test Negative code = 583) POCT-GLUCOSE [id number] 17:01:00 Test Item Value Reference Range Interpretation Comments POC-GLUCOSE METER 252 mg/dL 70-110 H TESTED AT [place] [address] ([facility]) (test code = [facility] Ciro [facility] 1538) [address] BASIC METABOLIC [id number] 16:19:00 Test Item Value Reference Range Interpretation [...] S NOT APPLICABLE FOR DIALYSIS PATIEN TS. [id number] 16:15:00 Test Item Value Reference Range Interpretation Comments MAGNESIUM (BEAKER) (test code = 1.4 mg/dL 1.6-2.6 L 627) POCT-GLUCOSE [id number] 11:37:00 Test Item Value Reference Range Interpretation Comments POC-GLUCOSE METER > mg/dL 70-110 HH OUTSIDE ME ASURING (BEAKER) (test code RANGENot ified JORDON MD/TESTED = 1538) AT [facility] [address] [facility] 7703 0 HEMOGLOBIN [id number] 11:03:00 Test Item Value Reference Range Interpretation Comments HEMOGLOBIN A1C (BEAKER) (test code = 12.5 % 4.3-6.1 H 368) POCT-GLUCOSE [id number] 08:22:00 Test Item Value Reference Range Interpretation Comments POC-GLUCOSE METER 434 mg/dL 70-110 HH Notified R Collin STAPLETON/TESTED (BEAKER) (test code = AT [facility] [address] 1538) [facility] 7703 0 COMPREHENSIVE METABOLIC [id number] 06:58:00 Test Item Value Reference Range Interpretation [...] S NOT APPLICABLE FOR DIALYSIS PATIEN TS. [id number] 06:43:00 Test Item Value Reference Range Interpretation Comments MAGNESIUM (BEAKER) (test code = 1.6 mg/dL 1.6-2.6 627) [id number] 06:30:00 Test Item Value Reference Range Interpretation Comments PHOSPHORUS (BEAKER) (test code = 2.9 mg/dL 2.3-4.7 604) GAMMA GLUTAMYL TRANSFERASE (GGT)2017-03-24 06:29:00 Test Item Value Reference Range Interpretation Comments GAMMA GLUTAMYL TRANSFERASE (BEAKER) 28 U/L 9-64 (test code = 364) CBC W/PLT COUNT & AUTO [id number] 06:11:00 Test Item Value Reference Range Interpretation [...] L 0.00-0.20 (test code = 417) 0.00POCT-GLUCOSE [id number] 00:12:00 Test Item Value Reference Range Interpretation Comments POC-GLUCOSE METER 403 mg/dL 70-110 Notified R Collin STAPLETON/TESTED (BEAKER) (test code = AT [facility] [address] [place] [address]) [facility] 7703 0 URINALYSIS W/ [id number] 21:19:00 Test Item Value Reference Range Interpretation [...] SOURCE(BEAKER) (test code Urine, Clean Catch = 2275) POCT-GLUCOSE [id number] 19:36:00 Test Item Value Reference Range Interpretation Comments POC-GLUCOSE METER 405 mg/dL 70-110 HH Notified R N MD/TESTED (BEAKER) (test code = AT [facility] [address] 1531) [facility] 7703 0 POCT-LACTIC ACID, [id number] 18:38:00 Test Item Value Reference Range Interpretation Comments POC-LACTIC ACID, 1.9 mmol/L 0.9-1.7 H TESTED AT [facility] 67[address] [place] (BEAKER) (test [facility] code = 2805) [address] CREATINE KINASE (CK), TOTAL AND [id number] 18:36:00 Test Item Value Reference Range Interpretation Comments CREATINE KINASE TOTAL (BEAKER) 39 U/L 29-200 (test code = 380) CREATINE KINASE-MB (BEAKER) (test 0.5 ng/mL 0.0-6.6 code = 750) CREATINE KINASE-MB INDEX (BEAKER) 1.3 % (test code = 395) Effective 09/11/2014: CK-MB Reference Range ChangeNew: 0.0-6.6 Previous: 0.0-4.9CK-MB Reference Range:<6.7 Normal6.7-10.0 Borderline>10.0 AbnormalTROPONIN [id number] 18:36:00 Test Item Value Reference Range Interpretation [...] 43 pg/mL 0-100 (test code = 700) [id number] 18:28:00 Test Item Value Reference Range Interpretation Comments MAGNESIUM (BEAKER) (test code = 1.7 mg/dL 1.6-2.6 627) BASIC METABOLIC [id number] 18:28:00 Test Item Value Reference Range Interpretation [...] S NOT APPLICABLE FOR DIALYSIS PATIEN TS. [id number] 18:24:00 Test Item Value Reference Range Interpretation [...] (test code = 417) 0.00AFB CULTURE + [id number] 18:28:00 Test Item Value Reference Range Interpretation Comments CULTURE (BEAKER) (test No acid-fast bacilli code = 1095) isolated in 42 days AFB SMEAR (BEAKER) No acid fast bacilli (test code = 994) seen AFB CULTURE + [id number] 12:13:00 Test Item Value Reference Range Interpretation Comments CULTURE (BEAKER) (test No acid-fast bacilli code = 1095) isolated in 42 days AFB SMEAR (BEAKER) No acid fast bacilli (test code = 994) seen FUNGUS CULTURE + [id number] 18:28:00 Test Item Value Reference Range Interpretation Comments CULTURE (BEAKER) A 2+ Clau albicans (test code = 1095) FUNGUS SMEAR No fungi seen (BEAKER) (test code = 1406) CF RESPIRATORY [id number] 04:50:00 Test Item Value Reference Range Interpretation Comments CULTURE (BEAKER) PSEUDOMONAS A 2+ Pseudomo vkii (test code = 1095) AERUGINOSA aeruginos a [...] A 2+ Pseudomo viki (test code = 69241) AERUGINOSA aerugino saof a second type Amikacin [...] or >4 2+ Normal respiratory derick presentBLOOD [id number] 18:00:00 Test Item Value Reference Range Interpretation Comments CULTURE (BEAKER) (test No growth in 5 days code = 1095) BLOOD [id number] 18:00:00 Test Item Value Reference Range Interpretation Comments CULTURE (BEAKER) (test No growth in 5 days code = 1095) POCT-GLUCOSE [id number] 12:39:00 Test Item Value Reference Range Interpretation Comments POC-GLUCOSE METER 352 mg/dL 70-110 H TESTED AT [place] [address] (BEAKER) (test code = PAUL Tanner [place] 1538) [address] BASIC METABOLIC [id number] 10:03:00 Test Item Value Reference Range Interpretation [...] PATIEN TS. CBC W/PLT COUNT & AUTO [id number] 09:23:00 Test Item Value Reference Range Interpretation [...] L 0.00-0.20 (test code = 417) 0.00POCT-GLUCOSE [id number] 08:55:00 Test Item Value Reference Range Interpretation Comments POC-GLUCOSE METER 82 mg/dL 70-110 TESTED AT [place] [address] ([place]) (test code = [facility] [address] 1538) POCT-GLUCOSE [id number] 21:23:00 Test Item Value Reference Range Interpretation Comments POC-GLUCOSE METER 264 mg/dL 70-110 H TESTED AT [place] [address] ([place]) (test code = [facility] 1538) [id number] POCT-GLUCOSE [id number] 17:56:00 Test Item Value Reference Range Interpretation Comments POC-GLUCOSE METER 340 mg/dL 70-110 H TESTED AT [place] [address] ([place]) (test code = [facility] 1538) [address] POCT-GLUCOSE [id number] 12:16:00 Test Item Value Reference Range Interpretation Comments POC-GLUCOSE METER 386 mg/dL 70-110 H TESTED AT [place] [address] ([place]) (test code = [facility] 1538) [address] POCT-GLUCOSE [id number] 08:24:00 Test Item Value Reference Range Interpretation Comments POC-GLUCOSE METER 105 mg/dL 70-110 TESTED AT [place] [address] ([place]) (test code = [facility] 1538) [id number] BUN AND [id number] 06:44:00 Test Item Value Reference Range Interpretation Comments BLOOD UREA NITROGEN 5 mg/dL 7-21 L ([place]) (test code = 354) CREATININE ([place]) 0.56 mg/dL 0.57-1.25 L (test code = 358) EGFR ([place]) (test 161 mL/min/1.73 ESTIM ATED GFR IS code = 1092) sq m NOT ACCURATE CREATININE CLEARANCE IN PREDICTING GLOMERULAR FILTRATION RATE . ESTIMATED GFR I S NOT APPLICABLE FOR DIALYSIS PATIEN TS. POCT-GLUCOSE [id number] 23:49:00 Test Item Value Reference Range Interpretation Comments POC-GLUCOSE METER 211 mg/dL 70-110 H TESTED AT [place] [address] ([place]) (test code = [facility] 1538) [address] POCT-GLUCOSE [id number] 19:36:00 Test Item Value Reference Range Interpretation Comments POC-GLUCOSE METER 288 mg/dL 70-110 H TESTED AT [place] [address] ([facility]) (test code = [facility] 1538) [address] BUN AND [id number] 18:20:00 Test Item Value Reference Range Interpretation Comments BLOOD UREA NITROGEN 8 mg/dL 7-21 ([facility]) (test code = 354) CREATININE ([facility]) 0.77 mg/dL 0.57-1.25 (test code = 358) EGFR ([facility]) (test 112 mL/min/1.73 ESTIM ATED GFR IS code = 1092) sq m NOT ACCURATE CREATININE CLEARANCE IN PREDICTING GLOMERULAR FILTRATION RATE . ESTIMATED GFR I S NOT APPLICABLE FOR DIALYSIS PATIEN TS. POCT-GLUCOSE [id number] 17:09:00 Test Item Value Reference Range Interpretation Comments POC-GLUCOSE METER 388 mg/dL 70-110 H TESTED AT [place] [address] ([facility]) (test code = [facility] 1538) [address]25 POCT-GLUCOSE [id number] 13:54:00 Test Item Value Reference Range Interpretation Comments POC-GLUCOSE METER 445 mg/dL 70-110 HH TESTED AT [place] [address] ([facility]) (test code = [facility] 1538) [address] POCT-GLUCOSE [id number] 11:39:00 Test Item Value Reference Range Interpretation Comments POC-GLUCOSE METER 349 mg/dL 70-110 H TESTED AT [place] [address] ([facility]) (test code = [facility] 1538) [address] POCT-GLUCOSE [id number] 09:08:00 Test Item Value Reference Range Interpretation Comments POC-GLUCOSE METER 52 mg/dL 70-110 L TESTED AT [place] [address] ([facility]) (test code = [facility] [address] 1538) POCT-GLUCOSE [id number] 22:14:00 Test Item Value Reference Range Interpretation Comments POC-GLUCOSE METER 99 mg/dL 70-110 TESTED AT [place] [address] ([facility]) (test code = [facility] [address] 1538) POCT-GLUCOSE [id number] 18:07:00 Test Item Value Reference Range Interpretation Comments POC-GLUCOSE METER 209 mg/dL 70-110 H TESTED AT [place] [address] ([facility]) (test code = [facility] 1538) [address] POCT-GLUCOSE [id number] 12:13:00 Test Item Value Reference Range Interpretation Comments POC-GLUCOSE METER 101 mg/dL 70-110 TESTED AT [place] [address] ([facility]) (test code = [facility] 1538) [address] POCT-GLUCOSE [id number] 08:28:00 Test Item Value Reference Range Interpretation Comments POC-GLUCOSE METER 311 mg/dL 70-110 H TESTED AT [place] [address] ([facility]) (test code = [facility] 1538) [address] BASIC METABOLIC [id number] 04:01:00 Test Item Value Reference Range Interpretation [...] PATIEN TS. CBC W/PLT COUNT & AUTO [id number] 03:36:00 Test Item Value Reference Range Interpretation [...] L 0.00-0.20 (test code = 417) 0.00POCT-GLUCOSE [id number] 22:02:00 Test Item Value Reference Range Interpretation Comments POC-GLUCOSE METER 129 mg/dL 70-110 H TESTED AT [place] [address] ([facility]) (test code = [facility] 1538) [address] POCT-GLUCOSE [id number] 17:43:00 Test Item Value Reference Range Interpretation Comments POC-GLUCOSE METER 399 mg/dL 70-110 H TESTED AT [place] [address] ([facility]) (test code = [facility] 1538) [address] SPIN/CONCENTRATION [id number] 13:27:00 Test Item Value Reference Range Interpretation Comments CONCENTRATION CHARGED ([facility]) (test Done code = 2657) POCT-GLUCOSE [id number] 12:38:00 Test Item Value Reference Range Interpretation Comments POC-GLUCOSE METER 312 mg/dL 70-110 H TESTED AT [place] [address] ([facility]) (test code = [facility] 1538) [address]08 CBC W/PLT COUNT & AUTO [id number] 09:37:00 Test Item Value Reference Range Interpretation [...] 0.00-0.20 (test code = 417) 0.00HCG, QUANTITATIVE, [id number] 09:10:00 Test Item Value Reference Range Interpretation [...] 9-64 (test code = 364) COMPREHENSIVE METABOLIC [id number] 09:02:00 Test Item Value Reference Range Interpretation [...] NOT APPLICABLE FOR DIALYSIS PATIEN TS. POCT-GLUCOSE [id number] 07:27:00 Test Item Value Reference Range Interpretation Comments POC-GLUCOSE METER 327 mg/dL 70-110 H TESTED AT [place] [address] ([facility]) (test code = [facility] [place] 1538) [address] POCT-GLUCOSE [id number] 21:00:00 Test Item Value Reference Range Interpretation Comments POC-GLUCOSE METER 218 mg/dL 70-110 H TESTED AT [place] [address] ([facility]) (test code = [facility] 1538) [address]198 LACTIC ACID, VENOUS, WHOLE [id number] 17:38:00 Test Item Value Reference Range Interpretation Comments LACTATE BLOOD VENOUS (2) (BEAKER) 2.3 mmol/L 0.5-2.2 H (test code = 2872) Effective 02/26/2016: Units/Reference Range ChangeNew: 0.5-2.2 mmol/L Previous: 5-20 mg/dLPOCT-GLUCOSE [id number] 17:13:00 Test Item Value Reference Range Interpretation Comments POC-GLUCOSE METER 97 mg/dL 70-110 TESTED AT [place] [address] ([facility]) (test code = [facility] [address] 1538) KETONE, [id number] 15:38:00 Test Item Value Reference Range Interpretation Comments KETONES, BLOOD ([facility]) (test code 0.1 mmol/L <0.4 = 1103) CBC W/PLT COUNT & AUTO [id number] 15:28:00 Test Item Value Reference Range Interpretation [...] 0.00-0.20 (test code = 417) 0.00COMPREHENSIVE METABOLIC [id number] 15:27:00 Test Item Value Reference Range Interpretation [...] APPLICABLE FOR DIALYSIS PATIEN TS. POCT-LACTIC ACID, [id number] 15:01:00 Test Item Value Reference Range Interpretation Comments POC-LACTIC ACID, 2.5 mmol/L 0.9-1.7 H TESTED AT [facility] 6720 [place]ENOUS ([facility]) (test [facility] code = 2805) [address] POCT-GLUCOSE [id number] 14:59:00 Test Item Value Reference Range Interpretation Comments POC-GLUCOSE METER > mg/dL 70-110 HH OUTSIDE ME ASURING ([facility]) (test code RANGETES MAGDALENO AT [facility] 6720 = 1538) [facility] [address] FUNGUS CULTURE + [id number] 19:28:00 Test Item Value Reference Range Interpretation Comments CULTURE (BEAKER) A 2+ Clau albicans (test code = 1095) FUNGUS SMEAR No fungi seen ([facility]AKER) (test code = 1406) CULTURE ([facility]AKER) A 1 out of 3 media (test code = Aspergillus 00970) fumigatusThis i s an appended report . These organism result s have been appended t o a previously sylwia l verified report . CBC W/PLT COUNT & AUTO [id number] 14:39:00 Test Item Value Reference Range Interpretation [...] MORPHOLOGY ([facility]AKER) (test code = Normal 762) [id number] 08:09:00 Test Item Value Reference Range Interpretation Comments MAGNESIUM ([facility]) (test code = 1.4 mg/dL 1.6-2.6 L 627) BASIC METABOLIC [id number] 08:09:00 Test Item Value Reference Range Interpretation Comments SODIUM (BEAKER) 137 meq/L 136-145 (test code = 381) POTASSIUM ([facility]AKER) 4.1 meq/L 3.5-5.1 (test code = 379) CHLORIDE (BEAKER) 98 meq/L 98-107 (test code = 382) CO2 ([facility]AK[facility]) (test 18 meq/L 22-29 L code = 355) BLOOD UREA NITROGEN 14 mg/dL 7-21 ([facility]) (test code = 354) CREATININE (BEAKER) 0.98 mg/dL 0.57-1.25 (test code = 358) GLUCOSE RANDOM 287 mg/dL 70-105 H ([facility]AKER) (test code = 652) CALCIUM ([facility]AK[facility]) 8.9 mg/dL 8.4-10.2 (test code = 697) EGFR ([facility]) (test 85 mL/min/1.73 ESTIMA MAGDALENO GFR IS code = 1092) sq m NOT ACCURATE CREATININE CLEARANCE IN PREDICTING GLOMERULAR FILTRATION RATE . ESTIMATED GFR I S NOT APPLICABLE FOR DIALYSIS PATIEN TS. POCT-GLUCOSE [id number] 15:20:00 Test Item Value Reference Range Interpretation Comments POC-GLUCOSE METER 212 mg/dL 70-110 H TESTED AT [place] [address] ([facility]) (test code = [facility] [place] 1538) [address] POCT-GLUCOSE [id number] 13:55:00 Test Item Value Reference Range Interpretation Comments POC-GLUCOSE METER 49 mg/dL 70-110 L Notified R Collin STAPLETON/TESTED AT ([facility]) (test code = [address] 1538) [facility] [address] POCT-GLUCOSE [id number] 12:02:00 Test Item Value Reference Range Interpretation Comments POC-GLUCOSE METER 386 mg/dL 70-110 H Notified R Collin STAPLETON/TESTED ([facility]) (test code = AT [address] 1538) [facility] [address] POCT-GLUCOSE [id number] 08:21:00 Test Item Value Reference Range Interpretation Comments POC-GLUCOSE METER 173 mg/dL 70-110 H TESTED AT [place] [address] ([facility]) (test code = [facility] 1538) [address] POCT-GLUCOSE [id number] 23:54:00 Test Item Value Reference Range Interpretation Comments POC-GLUCOSE METER 186 mg/dL 70-110 H TESTED AT [place] [address] ([facility]) (test code = [facility] 1538) [address] POCT-GLUCOSE [id number] 20:57:00 Test Item Value Reference Range Interpretation Comments POC-GLUCOSE METER 292 mg/dL 70-110 H TESTED AT [place] [address] ([facility]) (test code = [place] [address]) [address] POCT-GLUCOSE [id number] 18:30:00 Test Item Value Reference Range Interpretation Comments POC-GLUCOSE METER > mg/dL 70-110 HH OUTSIDE ME ASURING ([facility]) (test code RANGENot ified RN or = 1538) Patient refused repeat test/TESTED AT [address] [address] POCT-GLUCOSE [id number] 12:56:00 Test Item Value Reference Range Interpretation Comments POC-GLUCOSE METER 233 mg/dL 70-110 H TESTED AT [place] [address] ([facility]) (test code = NAOMIVA C[facility] 1538) [address] BLOOD [id number] 10:00:00 Test Item Value Reference Range Interpretation Comments CULTURE ([facility]) (test No growth in 5 days code = 1095) BLOOD [id number] 10:00:00 Test Item Value Reference Range Interpretation Comments CULTURE ([facility]) (test No growth in 5 days code = 1095) CBC W/PLT COUNT & AUTO [id number] 09:19:00 Test Item Value Reference Range Interpretation [...] K/ L 0.00-0.20 (test code = 417) [id number] 07:34:00 Test Item Value Reference Range Interpretation Comments MAGNESIUM (BEAKER) (test code = 1.4 mg/dL 1.6-2.6 L 627) BASIC METABOLIC [id number] 07:34:00 Test Item Value Reference Range Interpretation [...] NOT APPLICABLE FOR DIALYSIS PATIEN TS. POCT-GLUCOSE [id number] 21:23:00 Test Item Value Reference Range Interpretation Comments POC-GLUCOSE METER 230 mg/dL 70-110 H TESTED AT [facility] 6720 ([facility]) [facility] 1538[facility] [address] POCT-GLUCOSE [id number] 17:41:00 Test Item Value Reference Range Interpretation Comments POC-GLUCOSE METER 195 mg/dL 70-110 H TESTED AT [facility] 6720 ([facility]) (test code = [facility] [place] 1538) [address] CBC W/PLT COUNT & AUTO [id number] 15:23:00 Test Item Value Reference Range Interpretation [...] (BEAKER) (test code = Normal 762) POCT-GLUCOSE [id number] 11:49:00 Test Item Value Reference Range Interpretation Comments POC-GLUCOSE METER 370 mg/dL 70-110 H Notified R N or MD (SIMI) (test code = Patien t refused repeat 1538) test/TESTED AT [facility] 67[address] [facility] [address] POCT-GLUCOSE [id number] 11:45:00 Test Item Value Reference Range Interpretation Comments POC-GLUCOSE METER 424 mg/dL 70-110 HH Notified R N or MD (SIMI) (test code = Patien t refused repeat 1538) test/TESTED AT [facility] 67[address] [facility] [address] CF RESPIRATORY [id number] 10:46:00 Test Item Value Reference Range Interpretation Comments CULTURE (AKER) PSEUDOMONAS A 4+ Pseudomo viki [...] A 4+ Pseudomo viki (test code = 63623) AERUGINOSA aerugino saof a second type Amikacin [...] <0 or >4 CULTURE (BEAKER) PSEUDOMONAS A Pseudomonas (test code = 41551) AERUGINOSA aerugino saof a third type Amikacin [...] or >4 3+ Normal respiratory derick presentPOCT-GLUCOSE [id number] 10:07:00 Test Item Value Reference Range Interpretation Comments POC-GLUCOSE METER 112 mg/dL 70-110 H TESTED AT [place] [address] ([facility]) (test code = [facility] [place] 1538) [address] [id number] 07:09:00 Test Item Value Reference Range Interpretation Comments MAGNESIUM (BEAKER) (test code = 1.6 mg/dL 1.6-2.6 627) BASIC METABOLIC [id number] 07:09:00 Test Item Value Reference Range Interpretation Comments SODIUM (BEAKER) 135 meq/L 136-145 L (test code = 381) POTASSIUM (BEAKER) 4.0 meq/L 3.5-5.1 (test code = 379) CHLORIDE (BEAKER) 101 meq/L 98-107 (test code = 382) CO2 (BEAKER) (test 27 meq/L 22-29 code = 355) BLOOD UREA NITROGEN 8 mg/dL 7-21 (BEAKER) (test code = 354) CREATININE (BEAKER) 0.55 mg/dL 0.57-1.25 L (test code = 358) GLUCOSE RANDOM 133 mg/dL 70-105 H (BEAKER) (test code = 652) CALCIUM (BEAKER) 8.8 mg/dL 8.4-10.2 (test code = 697) EGFR (BEAKER) (test 165 mL/min/1.73 ESTIM ATED GFR IS code = 1092) sq m NOT ACCURATE CREATININE CLEARANCE IN PREDICTING GLOMERULAR FILTRATION RATE . ESTIMATED GFR I S NOT APPLICABLE FOR DIALYSIS PATIEN TS. POCT-GLUCOSE [id number] 20:59:00 Test Item Value Reference Range Interpretation Comments POC-GLUCOSE METER 294 mg/dL 70-110 H TESTED AT [facility] 6720 (BEAKER) (test code = [facility] [place] 1538) [address] POCT-GLUCOSE [id number] 18:18:00 Test Item Value Reference Range Interpretation Comments POC-GLUCOSE METER 238 mg/dL 70-110 H TESTED AT [facility] 6720 ([facility]) (test code = [place] 1538) [address] AFB CULTURE + [id number] 17:58:00 Test Item Value Reference Range Interpretation Comments CULTURE ([facility]) (test No acid-fast bacilli code = 1095) isolated in 42 days AFB SMEAR ([facility]) No acid fast bacilli (test code = 994) seen SPIROMETRY (IN CLINIC)2015-06-14 21:42:43Marco Smith MD 06/14/2015 4:42 PMPlease see graphic report for final interpretation. Date of testDate of test: 05/07/1553QHS2VYB9: 1.33 LFEV1 % EXP: 43 %FVCFVC: 2.06 LFVC % EXPECT: 58 %FEV1 / FVCFEV1 / FVC: 0.67 %FEV1 / FVC % EXP: 78 %FEFFEF 25-75%: 0.7 l/minFEF % EXPEC: 20 % Marco Smith MD - 06/14/2015 4:42 PM CDTPlease see graphic report for final interpretation.Date of testDate of test: 05/07/1528RCI8CZS3: 1.33 LFEV1 % EXP: 43 %FVCFVC: 2.06 LFVC % EXPECT: 58 %FEV1 / FVCFEV1 / FVC: 0.67 %FEV1 / FVC % EXP: 78 %FEFFEF 25-75%: 0.7 l/minFEF % EXPEC: 20 %[facility]
[2021-10-21 13:12] LABS: SARS-COV-2 RT PCR NEGATIVE (NEGATIVE)
--- NOTE | 2021-10-21 14:23 | EDPHYS ---
Physician Documentation [facility] Name: Ester Hagen Age: 31 yrs Sex: Female : 1990 Arrival Date: 10/21/2021 Time: 10:34 Bed Waiting Private MD: ED Physician Helio Diaz HPI: 10/21 15:36 This 31 yrs old Black Female presents to ER via Ambulatory with complaints of Sore kb Throat, Cough. 15:36 The patient or guardian reports cough, that is intermittent, described as mild. Onset: kb The symptoms/episode began/occurred 4 day(s) ago. Severity of symptoms: At their worst the symptoms were moderate, in the emergency department the symptoms are unchanged. Modifying factors: The symptoms are alleviated by nothing, the symptoms are aggravated by nothing. Associated signs and symptoms: The patient has no apparent associated signs or symptoms. The patient has not experienced similar symptoms in the past. The patient has not recently seen a physician. Pt reports cough for 4-5 days. States she has a few family members that have covid. Historical: - Allergies: 11:42 Amikacin; 5 11:42 Betadine; 5 11:42 Decadron; 5 11:42 Iodinated Contrast Media - IV Dye; 5 - PMHx: 11:42 Asthma; CYSTIC FIBROSIS; Diabetes - IDDM; 5 - Immunization history:: Adult Immunizations up to date. - Social history:: Smoking status: Patient denies any tobacco usage or history of. ROS: 15:35 Constitutional: Negative for fever, chills, and weight loss. kb 15:35 Respiratory: Positive for cough, Negative for dyspnea on exertion, hemoptysis, orthopnea, pleurisy, shortness of breath, sputum production, wheezing. 15:35 All other systems are negative. Exam: 15:35 Constitutional: This is a well developed, well nourished patient who is awake, alert, kb and in no acute distress. Head/Face: Normocephalic, atraumatic. ENT: Moist Mucous membranes Cardiovascular: Regular rate and rhythm with a normal S1 and S2. No gallops, murmurs, or rubs. No pulse deficits. Respiratory: Respirations even and unlabored. No increased work of breathing. Talking in full sentences Skin: Warm, dry with normal turgor. Normal color. MS/ Extremity: Pulses equal, no cyanosis. Neurovascular intact. Full, normal range of motion. Neuro: Awake and alert, GCS 15, oriented to person, place, time, and situation. Moves all extremities. Normal gait. Psych: Awake, alert, with orientation to person, place and time. Behavior, mood, and affect are within normal limits. Vital Signs: 11:39 BP 122 / 89; Pulse 116; Resp 20; Temp 97.9; Pulse Ox 98% ; Weight 47.17 kg; Height 5 [facility] ft. 1 in. (154.94 cm); 11:39 Body Mass Index 19.65 (47.17 kg, 154.94 cm) 5 MDM: 14:22 Patient medically screened. kb 15:35 Data reviewed: vital signs, nurses notes. Data interpreted: Pulse oximetry: on room air kb is 98 %. Interpretation: normal. Counseling: I had a detailed discussion with the patient and/or guardian regarding: the historical points, exam findings, and any diagnostic results supporting the discharge/admit diagnosis, lab results, the need for outpatient follow up, a family practitioner, to return to the emergency department if symptoms worsen or persist or if there are any questions or concerns that arise at home. 10/21 10:58 Order name: Strep; Complete Time: 14:22 ll1 10/21 10:59 Order name: Group A Streptococcus Rapid Sc; Complete Time: 14:22 EDMS 10/21 12:25 Order name: Throat Culture EDMS Administered Medications: No medications were administered Disposition: 16:10 Co-signature as Attending Physician, Helio Diaz MD I agree with the assessment and kdr plan of care. Disposition Summary: 10/21/21 14:22 Discharge Ordered Location: Home kb Condition: Stable kb Diagnosis - Acute upper respiratory infection, unspecified kb Followup: kb - With: Emergency Department - When: As needed - Reason: Worsening of condition Followup: kb - With: Private Physician - When: 2 - 3 days - Reason: Recheck today's complaints, Continuance of care, Re-evaluation by your physician Discharge Instructions: - Discharge Summary Sheet kb - Upper Respiratory Infection, Adult, Nyqc-[id number] kb - Viral Respiratory Infection, Svoc-Ok-Ctos kb Forms: - Medication Reconciliation Form kb - Thank You Letter kb - Antibiotic Education kb - Prescription Opioid Use kb Signatures: Dispatcher [employer] Rosaura Suazo, ENVIRONMENTAL PLANNING ENGINEER-C ENVIRONMENTAL PLANNING ENGINEER-Ckb Helio Diaz MD MD kdr Rees, Jessica RN RN [id number]
--- NOTE | 2021-10-21 14:23 | ER ---
Nurse's Notes [facility] Name: Ester Hagen Age: 31 yrs Sex: Female : 1990 Arrival Date: 10/21/2021 Time: 10:34 Bed Waiting Private MD: Diagnosis: Acute upper respiratory infection, unspecified Presentation: 10/21 11:39 Chief complaint: Patient states: cough, congestion, runny nose, sore throat. [facility] Coronavirus screen: Vaccine status: Patient reports receiving the 2nd dose of the covid vaccine. Client denies travel out of the [place] in the last 14 days. Ebola Screen: Patient negative for fever greater than or equal to 101.5 degrees Fahrenheit, and additional compatible Ebola Virus Disease symptoms Patient denies exposure to infectious person. Patient denies travel to an Ebola-affected area in the 21 days before illness onset. Initial Sepsis Screen: Does the patient meet any 2 criteria? HR > 90 bpm. Yes Does the patient have a suspected source of infection? No. Patient's initial sepsis screen is negative. Risk Assessment: Do you want to hurt yourself or someone else? Patient reports no desire to harm self or others. Onset of symptoms. 11:39 Method Of Arrival: Ambulatory [facility] 11:39 Acuity: DEDRA 3 [facility] Triage Assessment: 11:43 General: Appears in no apparent distress. slender, well groomed, well developed, well [facility] nourished, Behavior is calm, cooperative, appropriate for age. Pain: Denies pain. EENT: Reports nasal congestion nasal discharge. Historical: - Allergies: 11:42 Amikacin; [facility] 11:42 Betadine; [facility] 11:42 Decadron; [facility] 11:42 Iodinated Contrast Media - IV Dye; [facility] - PMHx: 11:42 Asthma; CYSTIC FIBROSIS; Diabetes - IDDM; [facility] - Immunization history:: Adult Immunizations up to date. - Social history:: Smoking status: Patient denies any tobacco usage or history of. Assessment: 11:43 Respiratory: Airway is patent Respiratory effort is even, unlabored. [facility] Vital Signs: 11:39 BP 122 / 89; Pulse 116; Resp 20; Temp 97.9; Pulse Ox 98% ; Weight 47.17 kg; Height 5 [facility] ft. 1 in. (154.94 cm); 11:39 Body Mass Index 19.65 (47.17 kg, 154.94 cm) 5 ED Course: 10:34 Patient arrived in ED. ds1 11:42 Triage completed. 5 11:43 Arm band placed on left wrist. [facility] 14:22 Rosaura Wheeler FNP-C [facility] kb 14:22 Helio Diaz MD is Attending Physician. kb Administered Medications: No medications were administered Outcome: : Discharge ordered by . kb 14:30 Patient left the ED. [facility] Signatures: Rosaura Wheeler FNP-C FNP-Ckb Sanford, Demi ds1 Tere Hopper RN RN [facility]
[2021-10-21 14:39] VITALS: BP 122/89; TEMP 97.9; O2SAT 98
== END 2021-10-21 14:30 | disposition home or self-care (01) ==
LOC: ER 10:32
DX: J06.9 Acute upper respiratory infection, unspecified (principal); Z20.822 Contact with and (suspected) exposure to COVID-19
CPT/HCPCS: 87070; 87081; 0240U; 99281

== ENCOUNTER 2022-11-29 13:32 | Emergency (ER) | payer OTHER ==
--- OUTSIDE RECORDS SUMMARY | 2022-11-29 14:08 | XMS REPORT | Continuity of Care Document ---
:1990 Author Organization [facility] t Address [address] [place] [address] [address]. [address] [place] [address] Care Team Providers Name Role Phone ENEDINA CORRALES Primary Care Physician Unavailable DANIELLE DEL VALLE Attending Clinician Unavailable Danielle Del Valle PA-C Attending Clinician KARAN WISE Attending Clinician Unavailable MONIQUE DOOLEY Attending Clinician Unavailable Monique Pearl Attending Clinician Doctor Unassigned, [facility] Attending Clinician Unavailable CRYSTAL GERMAIN Attending Clinician Unavailable Crystal Germain MD Attending Clinician Jocelyn Eller MD Attending Clinician Arely Leos MD Attending Clinician ARELY LEOS Attending Clinician Unavailable Zaid Morgan Attending Clinician CASS TOLENTINO Attending Clinician Unavailable Marco Smith MD Attending Clinician Lab, Ang - Db Attending Clinician Unavailable Jenny Bliss MDipoom Attending Clinician [phone] Christian Coleman MD Attending Clinician Rosa M Montejo DO Attending Clinician ROSA M MONTEJO Attending Clinician Unavailable Chino Waller MD Attending Clinician CHINO WALLER Attending Clinician Unavailable CHINO WALLER Attending Clinician Unavailable JENNY BLISS Attending Clinician Unavailable Nurse, [facility] Attending Clinician Unavailable Pob, [facility] Lab Main Attending Clinician Unavailable JOCELIN MAYEN Attending Clinician Unavailable Steve Qureshi MD Attending Clinician STEVE QURESHI Attending Clinician Unavailable 2, [facility] Lab Attending Clinician Unavailable MARCO SMITH Attending Clinician Unavailable TERE DIAZ Attending Clinician Unavailable GABRIELA RAY Attending Clinician Unavailable JENIFER RAMIREZ Attending Clinician Unavailable RUIZ PAK Attending Clinician Unavailable Joe PUENTES, Tere Attending Clinician ENEDINA CORRALES Attending Clinician Unavailable PETEY FORMAN Attending Clinician Unavailable FLIP RAINEY Attending Clinician Unavailable Jenifer Ramirez DO Attending Clinician [phone] Jocelin Mayen MD Attending Clinician Chino Waller MD Attending Clinician RUTHANN GOSS Attending Clinician Unavailable Lizbeth Stovall MD Attending Clinician MARCO SMITH Attending Clinician Unavailable MADISYN MATTHEWS Attending Clinician Unavailable TUSHAR DOUGLAS Attending Clinician Unavailable MOY SOLITARIO Attending Clinician Unavailable SHANON PEREIRA Attending Clinician Unavailable ANNIKA BARRY Attending Clinician Unavailable JERALD VIGIL Attending Clinician Unavailable ETHAN URENA Attending Clinician Unavailable MAXX LOPEZ Attending Clinician Unavailable YOSELYN HESTER Attending Clinician Unavailable TRACI VALADEZ Attending Clinician Unavailable THOMAS MAST Attending Clinician Unavailable VU, TRIEN B. Attending Clinician Unavailable RYAN MORALES Attending Clinician Unavailable TATIANA TURNER Attending Clinician Unavailable JACQUE ROY Attending Clinician Unavailable CRYSTAL GERMAIN Admitting Clinician Unavailable KALEB HEART Admitting Clinician Unavailable FRANCISCO HANEY Admitting Clinician Unavailable VALENTINE ARREGUIN Admitting Clinician Unavailable WOOD SIMON Admitting Clinician Unavailable MARLON ALCAZAR Admitting Clinician Unavailable STELLA HANDY Admitting Clinician Unavailable OLESYA HERNANDEZ Admitting Clinician Unavailable HUMAIRA FABIAN Admitting Clinician Unavailable TRACI VALADEZ Admitting Clinician Unavailable THOMAS MAST Admitting Clinician Unavailable YANY GLEASON Admitting Clinician Unavailable YOSELYN HESTER Admitting Clinician Unavailable Payers Payer Name Policy Type Policy Number Effective Date Expiration Date S On license of [facility] PLAN [id number] [facility] [id number] [facility] [id number] 2014 2014 00:00:00 00:00:00 [facility]-MEDICAID - [id number] MEDICAID Problems Condition Condition Condition Status Onset Resolution Last Treating Co mments Source Name Details Category Date Date Treatment Clinician Date CHF CHF Disease Active 2021-[address] [facility] [address] exacerbati exacerbati 0-20 [place] on on 00:00: Medical 00 [place] Anxiety Anxiety Disease Active Last [facility] 3-15 [employer] 00:00: t & Plan: Formattin Medicin g of this e note [...] her with finding counselin g resources . SOB SOB Disease Active 2018-[address] [facility] (shortness (shortness 1-05 [place] of breath) of breath) 00:00: Me dical 00 Center Tachycardi Tachycardi Disease Active B aylor a a 9-30 College 00:00: of 00 Medicin e Sleep-rela Sleep-rela Disease Active [facility]ander greco magdaleno dolan 8 [facility] hypoventil hypoventil 00:00: t & Plan: of [...] etting change; none Hypoxemia Hypoxemia Disease Active [facility] 8 [facility] 00:00: t & Plan: of Formattin Medicin g of this e note might be different from the original. Sec to lung disease, will need NPO Dysfunctio Dysfunctio Disease Active Last Jane greco ns ns 05-28 [facility] associated associated 00:00: t & Plan: of [...] sleep Poor sleep Disease Active [facility]: t & Plan: of 00 Formattin Medicin g of this e note might be different from the original. Counseled on sleep hygiene practice Chronic Chronic Disease Active [facility] sinusitis sinusitis 11-22 Cheo ege 00:00: of 00 Medicin e Diabetes Diabetes Disease Active [facility] mellitus mellitus 11-15 [facility] due to due to 00:00: Medical cystic cystic 00 Center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 Uncontroll Uncontroll Disease Active [facility] ed ed 11-15 [facility] diabetes diabetes 00:00: Medica l mellitus mellitus 00 Center Hyponatrem Hyponatrem Disease Active [facility] ia ia 11-15 [facility] 00:00: Medical 00 Center Hyperkalem Hyperkalem Disease Active [facility] ia ia 11-15 [facility] 00:00: Medical 00 Center Hyperglyce Hyperglyce Disease Active [facility] reyna reyna 11-15 [facility] 00:00: Medical 00 Center High risk High risk Disease Active Overview: [facility] medication medication -17 [facility] College use use 00:00: g of this of 00 note Medicin might be e different from the original. [facility] 11/08 - : Merrem 2G q 8H & Colistin 70 mg q 8H x 11 days. (23/0.80) [facility] 04/12- 04/25/19: Colistin 50mg Q12 and Merrem 2G Q8 [facility] 08/29 - 9: Colistin 50 mg q 12H and Merrem 2G q 8H. Stenosis Stenosis Disease Active 2017-10 [facility] of right of right 206 [facility] subclavian subclavian 00:00: Me dical vein vein 00 Center Innominate Innominate Disease Active 2017-10 Overview : [facility] St vein vein 2-06 Formattin [facility] stenosis, stenosis, 00:00: g of this M edical left left 00 note Center might be different from the original. Occlusion of left innominat e vein Hypoglycem Hypoglycem Disease Active 2017-[address] ia ia 2-05 [facility] 00:00: Medical 00 Center DUKE (acute DUKE (acute Disease Active 2017-[address] kidney kidney 0-24 [facility] injury) injury) 00:00: Medical 00 Center Asthma Asthma Disease Active [facility] exacerbati exacerbati 8-22 [place] [facility] on on 00:00: Medical 00 Center Cough Cough Disease Active [facility] 6-20 [facility] 00:00: Medical 00 Center Hypoxia Hypoxia Disease Active [facility] 4-28 [facility] 00:00: Medical 00 Center Acute Acute Disease Active [facility] respirator respirator 4-28 [place] [facility] y failure y failure 00:00: Medi alfonso with with 00 Center hypoxemia hypoxemia Sepsis Sepsis Disease Active [facility] 4-28 [facility] 00:00: Medical 00 Center DKA DKA Disease Active [facility] (diabetic (diabetic 4-28 [facility] s ketoacidos ketoacidos 00:00: Ri dical es) es) 00 Center Hypomagnes Hypomagnes Disease Active 2016-[address] emia emia 2-01 [facility] 00:00: Medical 00 Center Chronic Chronic Disease Active [facility] sinusitis sinusitis 8-30 [facility] s 00:00: Medical 00 Center Moderate Moderate Disease Active [facility] protein-ca protein-ca 8-30 [place] amy reyes 00:00: Medical malnutriti malnutriti 00 Ce nter on on Chronic Chronic Disease Active [facility] back pain back pain 8-30 [facility] s 00:00: Medical 00 Center Insomnia Insomnia Disease Active [facility] 8[facility]30 [facility] 00:00: Medical 00 Center Migraine Migraine Disease Active [facility] headache headache 6-06 [facility] 00:00: Medical 00 Center Generalize Generalize Disease Active Last [facility] d d 5-24 [facility] headaches headaches 00:00: t & Plan: o f 00 Formattin Medicin g of this e note might be different from the original. 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 Persisten t, due to coughing. Currently using tramadol. Previous success with lidoderm patch in the hospital. Will order through insurance . Pneumonia Pneumonia Disease Active [facility] of right of right 8-01 [facility] lower lobe lower lobe 00:00: Me dical due to due to 00 Center infectious infectious organism organism Steroid-in Steroid-in Disease Active [facility] duced duced 6-03 [facility] hyperglyce hyperglyce 00:00: Me dical reyna reyna 00 Center Pap smear Pap smear Disease Active Uni vers abnormalit abnormalit 1-29 it y of y of y of 00:00: [place] cervix cervix 00 Medical with LGSIL with LGSIL Br anch Hypoxemia Hypoxemia Disease Active [facility] 4-25 [facility] 00:00: Medical 00 Center Tachycardi Tachycardi Disease Active [facility] a a 4-25 [facility] 00:00: Medical 00 [place] PNA PNA Disease Active [facility] (pneumonia (pneumonia 4-25 [place] [facility] ) ) 00:00: Medical 00 [place] Shortness Shortness Disease Active [facility] of breath of breath 3-22 [facility] s 00:00: Medical 00 [place] Non Non Disease Active [facility] compliance compliance 2-19 [place] with with 00:00: Medical medical medical 00 Center treatment treatment Cystic Cystic Disease Active [facility]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 2-04 [facility] 00:00: Medical 00 Center Diabetes Diabetes Disease Active Unive rs mellitus mellitus 9-24 ity of due to due to 00:00: [place] cystic cystic 00 Medical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 Branch Cystic Cystic Disease Active Univers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 9-24 ity of 00:00: [place] [address] Medical Branch Need for Need for Disease Active Unive rs HPV HPV 9-24 ity of vaccine vaccine 00:00: [place] [address] Medical Branch Encounter Encounter Disease Active [facility] for for 8-21 [facility] long-term long-term 00:00: Medi alfonso (current) (current) 00 Cent er use of use of insulin 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 Repeat Vitamin D level Excess or Excess or Disease Active Overview: [facility] deficiency deficiency 8-20 [facility]in [facility] of vitamin of vitamin 00:00: g of this Medical D D 00 note Center might be different from the original. Overview: 03/2014 Vitamin D: 18.41/201 4 DEXA scan:Left femoral neck bone mineral density: 0.751 G/cm2, Z-score is -0.9. Left hip total bone mineral density: 0.923 G/cm2, Z-score is -0.2. Lumbar spine total bone mineral density: 0.934 Gm/cm2, Z-score is -0.8. Last Assessmen t & Plan: Repeat Vitamin D level ABPA ABPA Disease Active [facility] (allergic (allergic 04-07 Assessmen C ollege bronchopul bronchopul 00:00: t & Plan: of monary monary 00 Formattin Medicin aspergillo aspergillo g of this e sis) sis) note might be different from the original. Will DC vfend and increase orkambi to full doseConti nue prednison e 10mg Fitting Fitting Disease Active [facility] and and 04-05 [facility] adjustment adjustment 00:00: Me dical of of 00 Center vascular vascular catheter catheter Insomnia Insomnia Disease Active [facility] r 2- [facility] 00:00: t & Plan: of 00 Formattin Medicin g of this e note might be different from the original. Improved Cont same Malnutriti Malnutriti Disease Active Last B aylor on on 10-26 [facility] 00:00: t & Plan: of 00 Formattin Medicin g of this e note might be different from the original. Recommend ed trying [employer] Peptide Asthma Asthma Disease Active [facility] 11-09 [facility] 00:00: t & Plan: of 00 Formattin Medicin g of this e note might be different from the original. Wheezing and coughing attacks more frequent. Pancreatic Pancreatic Disease Recurre [facility] insufficie insufficie nce - [facility] College ncy ncy 00:00: t & Plan: of 00 Formattin Medicin g of this e note might be different from the original. Continue pancreati c enzyme supplemen tation ABPA ABPA Disease Active [facility] St (allergic (allergic 16 [facility] bronchopul bronchopul 00:00: Me dical monary monary 00 Center aspergillo aspergillo sis) sis) Intestinal Intestinal Disease Active [facility] malabsorpt malabsorpt 3-16 [place] ion ion 00:00: Medical 00 Center Pseudomona Pseudomona Disease Active [facility] s s 3-16 [facility] aeruginosa aeruginosa 00:00: Me dical infection infection 00 Cent er Deafness, Deafness, Disease Active Overview: [facility] St sensorineu sensorineu 3-16 Formattin [facility] ral ral 00:00: g of this Medical 00 note Center might be different from the original. Overview: Has hearing aids. Cystic Cystic Disease Recurre Overview: [facility] r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 nce 04-10 Formattin Col lege with with 00:00: g of this of pulmonary pulmonary 00 note Medi [place] manifestat manifestat might be e ions ions different from the original. 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 Patient unable to do spirometr y due to dental work. Will plan for admission for severe pulmonary exacerbat ion. 1. Access PORT2. Colistin 80mg IV Q12h3. Merrem 2gm q8h4. Monitor Cr closely h/o AKI5. Monitor LFTs as on Trikafta6 . Continue Trikafta7 . Solu-medr ol 40mg IV daily8. Endocrine consult, check A1C9. ACT with albuterol , hypersal, vest, pulmozyme 10. Inhaled tobramyci n CF (cystic CF (cystic Disease Active Overview : [facility] fibrosis) fibrosis) 04-10 Formattin L ukes 00:00: g of this Medical 00 note Center might be different from the original. 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 M Abscessus , previousl y tried to treat with Tygacil -- patient unable to tolerate due to nausea (weight loss down to 80s lbs). Previous treatment with amikacin resulted in hearing loss. Allergies, Adverse Reactions, Alerts Allergy Allergy Status Severity Reaction(s) Onset Inactive Treating Comm ents Source Name Type Date Date Clinician Iodine Propensi Active Nausea And [place] or ty to Vomiting 01-13 [place] adverse 00:00: of reaction 00 Medicin s to e drug DYE Allergy Active N\\T\\V [facility] 01-13 00:00: 00 Iodinate Propensi Active Nausea Univer s d ty to and/or 01-13 ity of Contrast adverse Vomiting 00:00: [place] [facility] reaction 00 Medical s Branch DYE DRUG Active N/V Univers INGREDI 01-13 ity of 00:00: [place] [facility] IODINATE Drug Active N/V Univers D Class 01-13 ity of CONTRAST 00:00: [place] MEDIA 00 Medical Branch Dye Propensi Active Nausea And [facility] ty to Vomiting 01-13 kes adverse 00:00: Medical reaction 00 Center s IODINATE Allergy Active N\\T\\V [facility] D 04-29 CONTRAST 00:00: MEDIA 00 Iodinate Drug Active Nausea And [facility] d Allergy Vomiting 04-29 [facility] Contrast 00:00: Medical Media 00 Center Iodinate Drug Active Nausea And [facility] d Allergy Vomiting 04-29 [facility] Contrast 00:00: Medical Media 00 Center I.V. Dye Propensi Active Vomiting [place] ty to Only 04-25 [place] adverse 00:00: of reaction 00 Medicin s to e substanc e IODINE Allergy Active N\\T\\V [facility] AND 04-25 IODIDE 00:00: CONTAINI 00 NG PRODUCTS Iodine Propensi Active Nausea Univers ty to and/or 04-25 ity of adverse Vomiting 00:00: [place] reaction 00 Medical s Branch IODINE DRUG Active N/V Univers INGREDI - ity of 00:00: [place] [facility] Iodine Propensi Active Nausea And [facility] And ty to Vomiting 7-02 [facility] Iodide adverse 00:00: Medical Containi reaction 00 Center ng s Products POVIDONE Allergy Active High Rash [facility] -IODINE 01-14 (WITH 00:00: SOAP) 00 POVIDONE DRUG Active High Rash Univers -IODINE 01-14 ity of (WITH 00:00: [place] SOAP) 00 Medical Branch Povidone Drug Active Rash [facility] -Iodine Allergy 01-14 [facility] (With 00:00: Medical Soap) 00 Center Povidone Propensi Active Rash Jayesh -Iodine ty [...] hearing." AMIKACIN Allergy Active High Other [facility] 01-15 00:00: 00 Amikacin Drug Active Other (See Hearing [facility] Allergy Comments) 324 lostPatie Jocelyn es 00:00: nt stated Medical 00 "Amikacin Center takes away my hearing." Hearing lost Hearing lostPatie nt stated "Amikacin takes away my hearing." Povidone Propensi Active Rash Jayesh Iodine ty to 3-16 College adverse 00:00: of reaction 00 Medicin s to e drug Dexameth Propensi Active Rash Other Jayesh asone ty to 3-16 reaction( College adverse 00:00: s): of reaction 00 Unknown - Medic in s to See e drug commentsT urns redPatien t stated "Decadron makes me turn red."Turn s redPatien t stated "Decadron makes me turn red." DEXAMETH Allergy Active High Rash [facility] ASONE 316 00:00: 00 POVIDONE Allergy Active High Rash [facility] -IODINE 16 00:00: 00 DEXAMETH DRUG Active High Unknown-Cmnt Un narcisa ASONE INGREDI 16 ity of 00:00: [place] 00 Medical Branch Dexameth Drug Active Rash, Other Turns [facility] asone Allergy (See 01-07 redPatien Lu Comments) 00:00: t stated Medic al 00 "Decadron Center makes me turn red."Othe r reaction( s): Unknown - See commentsT urns redPatien t stated "Decadron makes me turn red."Turn s redPatien t stated "Decadron makes me turn red." Povidone Propensi Active Rash [facility] -Iodine ty to 16 [facility] adverse 00:00: Medical reaction 00 Center s Aminogly Drug Active Other - See Hearing Un narcisa cosides Allergy comments 2-17 loss from ity of 00:00: IV 00 [facility] earing Branch lost Hearing lostPatie nt stated "Amikacin takes away my hearing." Hearing lostPatie nt stated "Amikacin takes away my hearing." Hearing lost Hearing lostPatie nt stated "Amikacin takes away my hearing." AMINOGLY Drug Active High Unknown-Cmnt Un narcisa COSIDES Class 2-17 ity of 00:00: [place] 00 Medical Branch Povidone Propensi Active Rash 2009-10 Univer s -Iodine ty to 11-15 ity of adverse 00:00: [place] reaction 00 Medical s Branch POVIDONE DRUG Active High Rash 2009-10 Univers -IODINE INGREDI 11-15 ity of 00:00: [place] 00 Medical Branch Family History Family Member Diagnosis Comments Start Date Stop Date Source Family member Migraines [facility] Family member Seizures [facility] Social History Social Habit Start Date Stop Date Quantity Comments Source History SDOH University o f Alcohol Comment [place] [facility] History SDME University o f Alcohol Std [place] [facility] Drinks Branch History [facility] o f Alcohol Binge [place] [facility] al Branch Exposure to 2022-10-04 2022-10-14 Not sure University SARS-CoV-2 00:00:00 07:25:00 [place] [facility] (event) Branch Alcohol intake 2022-05-01 2022-05-[address] Jocelyn es 00:00:00 00:00:00 non-drinker of Medical Ce nter alcohol (finding) Education 2021-01-06 2021-01-06 17 [facility] 00:00:00 00:00:00 Medicine History [facility] 2019-05-02 2019-05-02 1 [place] o f Alcohol Frequency 00:00:00 00:00:00 [facility] edical [place] Tobacco use and 2014-11-28 2014-11-[address] [facility] [place] exposure 00:00:00 00:00:00 Medical Center Sex Assigned At [address] [facility] [place] [facility] 00:00:00 00:00:00 Medical Center Smoking Status Start Date Stop Date Source Never smoker [facility] Medications Ordered Filled Start Stop Current Ordering Indication Dosage Frequency Signature Comments Components Source Medication Medication Date Date Medication? Clinician (SIG) Name Name hydrOXYzine 2021-10 Yes [id number] Take once Univers 25 mg 2-21 daily as ity of tablet 00:00: needed for [place] 00 anxiety. Medical Branch hydrOXYzine 2021-10 Yes [id number] Take once Univers 25 mg 2-21 daily as ity of tablet 00:00: needed for [place] 00 anxiety. Medical Branch hydrOXYzine 2021-10 Yes [id number] Take once Univers 25 mg 2-21 daily as ity of tablet 00:00: needed for [place] 00 anxiety. Medical Branch zolpidem 2021-10 Yes 10mg Take [address] (AMBIEN) 10 1-16 by mouth Luke s mg tablet 09:27: every Medical 04 night as Center needed. albuterol 2021-10 Yes 1{ampul Take [address] (ACCUNEB) 1-16 e} ampule by [facility]ukes 0.63 mg/3 09:27: nebulizati Me dical mL 04 on every 6 Center nebulizer (six) solution hours as needed for Wheezing. levalbutero 2021-10 Yes 2{puff} Inhale [address] l (XOPENEX 1-16 puffs by [facility] HFA) 45 09:27: mouth via Medic al mcg/actuati 04 inhaler Cente r on inhaler every 6 (six) hours as needed for Wheezing . lipase-prot 2021-10 Yes 4{capsu Take [address] ease-amylas 1-16 le} capsules Luke s e 09:27: by mouth 3 Medical 5,000-17,00 04 (three) Cente r 0 -27,000 times unit E.C. daily with cap meals 4 capsule with meals, 2 capsules with snacks. albuterol 2021-10 Yes 2.5mg [id number] Take 2.[address] [facility] [facility] (PROVENTIL) 1-16 [id number] mg by L ukes 2.5 mg /3 09:27: 3D nebulizati Me dical mL (0.083 04 on 3 Center %) (three) nebulizer times solution daily. cholecalcif 2021-10 Yes 2000U QD Take 2,[address] teja, 1-16 Units by [facility]ukes vitamin D3, 09:27: mouth Medic al 2,000 unit 04 daily. Center Tab mirtazapine 2021-10 Yes 7.5mg QD Take 7.[address] (REMERON) 1-16 mg by [facility]ukes 7.5 MG 09:27: mouth Medical tablet 04 nightly. Center nortriptyli 2021-10 Yes 10mg QD Take [address] [facility] ne 1-16 by mouth [facility]ukes (PAMELOR) 09:27: nightly. Medi alfonso 10 MG 04 Center capsule UNKNOWN 2021-10 Yes Med Name: [facility] t 1-16 TRIKAFTA [facility] 09:27: 100MG, Medical 04 50MG, 75 Center MG AND 150 MG 2 TAB IN AM AND 1 TAB IN PM . zolpidem 2021-10 Yes 10mg Take [address] (AMBIEN) 10 1-16 by mouth Luke s mg tablet 09:27: every Medical 04 night as Center needed. albuterol 2021-10 Yes 1{ampul Take [address] [facility] (ACCUNEB) 1-16 e} ampule by [facility]ukes 0.63 mg/3 09:27: nebulizati Me dical mL 04 on every 6 Center nebulizer (six) solution hours as needed for Wheezing. levalbutero 2021-10 Yes 2{puff} Inhale [address] l (XOPENEX 1-16 puffs by [facility] HFA) 45 09:27: mouth via Medic al mcg/actuati 04 inhaler Cente r on inhaler every 6 (six) hours as needed for Wheezing . lipase-prot 2021-10 Yes 4{capsu Take [address] ease-amylas 1-16 le} capsules Luke s e 09:27: by mouth 3 Medical 5,000-17,00 04 (three) Cente r 0 -27,000 times unit E.C. daily with cap meals 4 capsule with meals, 2 capsules with snacks. albuterol 2021-10 Yes 2.5mg [id number] Take 2.[address] [facility] (PROVENTIL) 1-16 [id number] mg by L ukes 2.5 mg /3 09:27: 3D nebulizati Me dical mL (0.083 04 on 3 Center %) (three) nebulizer times solution daily. cholecalcif 2021-10 Yes 2000U QD Take 2,[address] [facility], 1-16 Units by [facility] vitamin D3, 09:27: mouth Medic al 2,000 unit 04 daily. Center Tab mirtazapine 2021-10 Yes 7.5mg QD Take 7.[address] (REMERON) 1-16 mg by [facility] 7.5 MG 09:27: mouth Medical tablet 04 nightly. Center nortriptyli 2021-10 Yes 10mg QD Take [address] [facility] ne 1-16 by mouth [facility] (PAMELOR) 09:27: nightly. [facility] alfonso 10 MG 04 Center capsule UNKNOWN 2021-10 Yes Med Name: [facility] TRIKAFTA [facility] 09:27: 100MG, Medical 04 50MG, 75 Center MG AND 150 MG 2 TAB IN AM AND 1 TAB IN PM . NUVARING 2021-10 Yes [id number] 1{each} Insert 1 [facility] 0.12-0.015 1-07 Each into ity of mg/24 hr 00:00: vagina [place] vaginal 00 once every Medica l insert month. Branch Insert vaginally and leave in place for 3 consecutiv e weeks, then remove for 1 week. valACYclovi 2021-10 Yes 1g Take 1 Univ ers r 1 gram 1-07 tablet by ity of tablet 00:00: mouth in [place] 00 the Medical morning. Branch NUVARING 2021-10 Yes [id number] 1{each} Insert 1 [facility] 0.12-0.015 1-07 Each into ity of mg/24 hr 00:00: vagina [place] vaginal 00 once every Medica l insert month. Branch Insert vaginally and leave in place for 3 consecutiv e weeks, then remove for 1 week. valACYclovi 2021-10 Yes 1g Take 1 Univ ers r 1 gram 1-07 tablet by ity of tablet 00:00: mouth in [place] 00 the Medical morning. Branch NUVARING 2021-10 Yes [id number] 1{each} Insert 1 [facility] 0.12-0.015 1-07 Each into ity of mg/24 hr 00:00: vagina [place] vaginal 00 once every Medica l insert month. Branch Insert vaginally and leave in place for 3 consecutiv e weeks, then remove for 1 week. valACYclovi 2021-10 Yes 1g Take 1 Univ ers r 1 gram 1-07 tablet by ity of tablet 00:00: mouth in [place] 00 the Medical morning. Branch NUVARING 2021-10 Yes [id number] 1{each} Insert 1 [facility] 0.12-0.015 1-07 Each into ity of mg/24 hr 00:00: vagina [place] vaginal 00 once every Medica l insert month. Branch Insert vaginally and leave in place for 3 consecutiv e weeks, then remove for 1 week. valACYclovi 2021-10 Yes 1g Take 1 Univ ers r 1 gram 1-07 tablet by ity of tablet 00:00: mouth in [place] 00 the Medical morning. Branch NUVARING 2021-10 Yes [id number] 1{each} Insert 1 [facility] 0.12-0.015 1-07 Each into ity of mg/24 hr 00:00: vagina [place] vaginal 00 once every Medica l insert month. Branch Insert vaginally and leave in place for 3 consecutiv e weeks, then remove for 1 week. valACYclovi 2021-10 Yes 1g Take 1 Univ ers r 1 gram 1-07 tablet by ity of tablet 00:00: mouth in [place] 00 the Medical morning. Branch NUVARING 2021-10 Yes [id number] 1{each} Insert 1 [facility] 0.12-0.015 1-07 Each into ity of mg/24 hr 00:00: vagina [place] vaginal 00 once every Medica l insert month. Branch Insert vaginally and leave in place for 3 consecutiv e weeks, then remove for 1 week. valACYclovi 2021-10 Yes 1g Take 1 Univ ers r 1 gram 1-07 tablet by ity of tablet 00:00: mouth in [place] 00 the Medical morning. Branch NUVARING 2021-10 Yes [id number] 1{each} Insert 1 Univers 0.12-0.015 1-07 Each into ity of mg/24 hr 00:00: vagina [place] vaginal 00 once every Medica l insert month. Branch Insert vaginally and leave in place for 3 consecutiv e weeks, then remove for 1 week. valACYclovi 2021-10 Yes 1g Take 1 Univ ers r 1 gram 1-07 tablet by ity of tablet 00:00: mouth in [place] 00 the Medical morning. Branch zolpidem 2021-10 Yes 10mg Take [address] [facility] (AMBIEN) 10 0-26 by mouth [facility] mg tablet 17:20: every Medical 06 night as Center needed. albuterol 2021-10 Yes 1{ampul Take [address] [facility] (ACCUNEB) 0-26 e} ampule by Jaret 0.63 mg/3 17:20: nebulizati Me dical mL 06 on every 6 Center nebulizer (six) solution hours as needed for Wheezing. levalbutero 2021-10 Yes 2{puff} Inhale [address] [facility] (XOPENEX 0-26 puffs by Jaret HFA) 45 17:20: mouth via Medic al mcg/actuati 06 inhaler Cente r on inhaler every 6 (six) hours as needed for Wheezing . lipase-prot 2021-10 Yes 4{capsu Take [address] ease-amylas 0-26 le} capsules Luke s e 17:20: by mouth 3 Medical 5,000-17,00 06 (three) Cente r 0 -27,000 times unit E.C. daily with cap meals 4 capsule with meals, 2 capsules with snacks. albuterol 2021-10 Yes 2.5mg [id number] Take 2.[address] [facility] (PROVENTIL) 0-26 [id number] mg by L ukes 2.5 mg /3 17:20: 3D nebulizati Me dical mL (0.083 06 on 3 Center %) (three) nebulizer times solution daily. cholecalcif 2021-10 Yes 2000U QD Take 2,[address] [facility] teja, 0-26 Units by [facility] vitamin D3, 17:20: mouth Medic al 2,000 unit 06 daily. Center Tab mirtazapine 2021-10 Yes 7.5mg QD Take 7.[address] (REMERON) 0-26 mg by [facility] 7.5 MG 17:20: mouth Medical tablet 06 nightly. Center nortriptyli 2021-10 Yes 10mg QD Take [address] [facility] ne 0-26 by mouth [facility] (PAMELOR) 17:20: nightly. Medi alfonso 10 MG 06 Center capsule UNKNOWN 2021-10 Yes Med Name: [facility] TRIKAFTA [facility] 17:20: 100MG, Medical 06 50MG, 75 Center MG AND 150 MG 2 TAB IN AM AND 1 TAB IN PM . Insulin 2021-10 Yes [id number] Inject [place] Glargine 0-14 subcutaneo Colle ge (LANTUS 00:00: usly a MAX of SOLOSTAR) 00 dose of 14 Medi [place] 100 UNIT/ML units a e SOPN day. In case of pump failure. Insulin Pen 2021-10 Yes [id number] Use as Jayesh Needle (BD 0-14 directed Colle ge PEN NEEDLE 00:00: to inject of SAIRA U/F) 00 5 times Medicin 32G X 4 MM daily. In e MISC case of pump failure. Insulin 2021-10 Yes Inject 1 Jayesh Lispro, 1 0-14 unit for Colleg e Unit Dial, 00:00: every 12 of (HUMALOG 00 grams of Medicin KWIKPEN) carbs in e 100 UNIT/ML the event SOPN of insulin pump failure. Multiple 2021-10 Yes [id number] Take 1 [place] Vitamins-Mi 0-11 capsule by Co yaniv eckert (MVW 00:00: mouth 2 of COMPLETE 00 times Medicin FORMULATION daily e D3000) CAPS (with meals). Vitamin D, 2021-10 Yes [id number] TAKE 1 [facility] Ergocalcife 0-10 CAPSULE BY Co yaniv rol, 1.25 00:00: MOUTH of MG (29928 00 EVERY 7 Medicin [place]) CAPS DAYS e sulfamethox 0 Yes [id number] 1{tbl} Take 1 [facility] azole-trime 9-21 Tablet by Col legjeff thoprim 00:00: mouth 3 of (BACTRIM 00 times Medicin DS) 800-160 daily. e MG per tablet Nutritional 0 Yes [id number] DRINK ONE [facility] Supplements 07-03 CAN/BOTTLE Co yaniv (GLUCERNA 00:00: BY MOUTH of SHAKE) LIQD 00 TWICE Medicin DAILY e ADVAIR Yes [id number] INHALE 1 [facility] DISKUS 8-29 PUFF BY [place] 500-50 00:00: MOUTH of MCG/ACT 00 TWICE Medicin inhaler DAILY. e RINSE MOUTH OUT WELL AFTER USE CREON 0 Yes [id number] TAKE 5 [facility] [id number] 8-22 CAPSULES [facility] units CPEP 00:00: BY MOUTH of 00 WITH MEALS Medicin AND 2 e CAPSULES EVERY DAY WITH SNACKS norelgestro 0 Yes [id number] 1{patch Apply 1 Univers min-ethinyl 8-03 } Patch to ity of estradiol 00:00: [facility] weekly. Medical 150-35 Branch mcg/24 hr patch norelgestro 0 Yes [id number] 1{patch Apply 1 Univers min-ethinyl 8-03 } Patch to ity of estradiol 00:00: [facility] weekly. Medical 150-35 Branch mcg/24 hr patch norelgestro 2021-0 Yes [id number] 1{patch Apply 1 Univers min-ethinyl 8-03 } Patch to ity of estradiol 00:00: [facility]) weekly. Medical 150-35 Branch mcg/24 hr patch norelgestro 2021-0 Yes [id number] 1{patch Apply 1 Univers min-ethinyl 8-03 } Patch to ity of estradiol 00:00: [facility]) weekly. Medical 150-35 Branch mcg/24 hr patch norelgestro 2021-0 2022- No [id number] 1{patch Apply 1 Univers min-ethinyl 05-27 } Patch to ity of estradiol 00:00: 00:00 skin [place] (LAN) 00 :00 weekly. Medical 150-35 Branch mcg/24 hr patch norelgestro 202- No [id number] 1{patch Apply 1 Univers min-ethinyl 05-27 } Patch to ity of estradiol 00:00: 00:00 skin [place] (XULANE) 00 :00 weekly. Medical 150-35 Branch mcg/24 hr patch PULMOZYME Yes [id number] USE 1 VIAL [facility] 2.5 7-19 VIA [place] MG/2.5ML 00:00: NEBULIZER of nebulizer 00 TWICE Medicin solution DAILY e Accu-Chek Yes [id number] 1{each} 1 Each 6 [facility] FastClix 7-15 times [place] Lancets 00:00: daily. of MISC 00 Check BG 6 Medicin times a e day. BAQSIMI TWO Yes [id number] 3mg 3 mg by [facility] PACK 3 7-13 Nasal [place] MG/DOSE 00:00: route as of needed Medicin (for e severe hypoglycem ia). Glucose Yes [id number] CHECK [facility] or Blood 7-13 GLUCOSE 3 [place] Strips 00:00: TIMES of (CONTOUR 00 DAILY Medicin NEXT TEST) e insulin Yes [id number] INJECT 50 [facility] lispro 7-13 UNITS PER College (HUMALOG) 00:00: DAY VIA of 100 UNIT/ML 00 INSULIN Medic in injection PUMP. e Vitamin D, Yes [id number] 1{tbl} Take 1 [facility] Ergocalcife 7-08 Tablet by Col kalyan vang, 1.25 00:00: mouth of [place] (01308 00 every 7 Medicin [place]) CAPS days. e fluticasone Yes [id number] 1{spray 1 [place] [facility] (FLONASE) 04-30 } two times Colle ge 50 MCG/ACT 00:00: daily. of nasal spray 00 Medicin e Sodium Yes [id number] 1{spray 1 [place] by [facility] Chloride-So 04-30 } Nasal [place] dium Bicarb 00:00: route two o f (AYR SALINE 00 times Medicin NASAL daily. e RINSE) 1.57 g PACK cetirizine, 0 Yes [id number] 10mg Take 1 Jayesh ZYRTEC, 10 7-07 Tablet by Cheo ege MG tablet 00:00: mouth two of 00 times Medicin daily. e fluticasone 2021-0 Yes [id number] 1{spray 1 [place] Jayesh (FLONASE) 04-30 } two times Colle ge 50 MCG/ACT 00:00: daily. of nasal spray 00 Medicin e Sodium 0 Yes [id number] 1{spray 1 [place] by [facility] Chloride-So 04-30 } Nasal [place] dium Bicarb 00:00: route two o f (AYR SALINE 00 times Medicin NASAL daily. e RINSE) 1.57 g PACK cetirizine, Yes [id number] 10mg Take 1 Jayesh ZYRTEC, 10 - Tablet by Cheo ege MG tablet 00:00: mouth two of 00 times Medicin daily. e fluticasone 0 Yes [id number] 1{spray 1 [place] Jayesh (FLONASE) 04-30 } two times Colle ge 50 MCG/ACT 00:00: daily. of nasal spray 00 Medicin e Sodium 0 Yes [id number] 1{spray 1 [place] by [facility] Chloride-So 04-30 } Nasal [place] dium Bicarb 00:00: route two o f (AYR SALINE 00 times Medicin NASAL daily. e RINSE) 1.57 g PACK cetirizine, Yes [id number] 10mg Take 1 Jayesh ZYRTEC, 10 - Tablet by Cheo ege MG tablet 00:00: mouth two of 00 times Medicin daily. e ciprofloxac 2021-0 2021- No [id number] 750mg Take 1.5 [facility] in (CIPRO) 04-30 Tablets by Co llege 500 MG 00:00: 04:59 mouth two of tablet 00 :00 times Medicin daily for e 14 days. sulfamethox 2021-0 2021- No [id number] 1{tbl} Take 1 [facility] azole-trime 04-30 Tablet by Co llege thoprim 00:00: 04:59 mouth two of (BACTRIM 00 :00 times Medicin DS, SEPTRA daily for e DS) 800-160 14 days. MG per tablet ciprofloxac 2021- No [id number] 750mg Take 1.5 [facility] in (CIPRO) 04-30 Tablets by Co llege 500 MG 00:00: 04:59 mouth two of tablet 00 :00 times Medicin daily for e 14 days. sulfamethox 2021- No [id number] 1{tbl} Take 1 [facility] azole-trime 04-30 Tablet by Co llege thoprim 00:00: 04:59 mouth two of (BACTRIM 00 :00 times Medicin DS, SEPTRA daily for e DS) 800-160 14 days. MG per tablet Nutritional Yes [id number] DRINK ONE [facility] Supplements 6-13 CAN/BOTTLE Co llege (GLUCERNA 00:00: BY MOUTH of SHAKE) LIQD 00 TWICE Medicin DAILY e Nutritional Yes [id number] DRINK ONE [facility] Supplements 6-13 CAN/BOTTLE Co llege (GLUCERNA 00:00: BY MOUTH of SHAKE) LIQD 00 TWICE Medicin DAILY e Pancrelipas Yes [id number] TAKE 5 Jayesh e, 6-03 CAPSULES [place] Lip-Prot-Am 00:00: BY MOUTH of yl, (CREON) 00 WITH MEALS Me dicin [id number] AND 2 e units CPEP CAPSULES EVERY DAY WITH SNACKS Pancrelipas Yes [id number] TAKE 5 [facility] e, 6-03 CAPSULES [place] Lip-Prot-Am 00:00: BY MOUTH of yl, (CREON) 00 WITH MEALS Me dicin [id number] AND 2 e units CPEP CAPSULES EVERY DAY WITH SNACKS Elexacaf-Te Yes [id number] TAKE 2 [facility] zacaf-Ivaca 5-02 TABLETS BY Co llege f&Ivacaf 00:00: MOUTH of (TRIKAFTA) 00 EVERY Medicin 100-50-75 & MORNING e 150 MG TBPK AND 1 TABLET AT BEDTIME, 12 HOURS APART WITH FAT CONTAINING FOOD Elexacaf-Te Yes [id number] TAKE 2 [facility] zacaf-Ivaca 5-02 TABLETS BY Co llege f&Ivacaf 00:00: MOUTH of (TRIKAFTA) 00 EVERY Medicin 100-50-75 & MORNING e 150 MG TBPK AND 1 TABLET AT BEDTIME, 12 HOURS APART WITH FAT CONTAINING FOOD Elexacaf-Te 2021-0 Yes [id number] TAKE 2 [facility] zacaf-Ivaca 5-02 TABLETS BY Co llege f&Ivacaf 00:00: MOUTH of (TRIKAFTA) 00 EVERY Medicin 100-50-75 & MORNING e 150 MG TBPK AND 1 TABLET AT BEDTIME, 12 HOURS APART WITH FAT CONTAINING FOOD fluticasone 0 2021- No [id number] SHAKE [facility] (FLONASE) 3- 0707 LIQUID AND Col lege 50 MCG/ACT 00:00: 00:00 USE 2 of nasal spray 00 :00 SPRAYS IN Med icin EACH e NOSTRIL DAILY Tobramycin 0 Yes 4mL Inhale 4 [place] (BETHKIS) 3-04 mL two [place] 300 MG/4ML 00:00: times of NEBU 00 daily. Medicin e Tobramycin 2021-0 Yes 4mL Inhale 4 [place] (BETHKIS) 3-04 mL two College 300 MG/4ML 00:00: times of NEBU 00 daily. Medicin e Tobramycin 2021-0 Yes 4mL Inhale 4 [place] (BETHKIS) 3-04 mL two College 300 MG/4ML 00:00: times of NEBU 00 daily. Medicin e levalbutero 0 Yes [id number] INHALE ONE [facility] l HCl 3-02 VIAL VIA [place] ([employer]) 00:00: NEBULIZER of 0.63 MG/3ML 00 TWICE Medicin NEBU DAILY e nebulizer solution levalbutero 2021-0 Yes [id number] INHALE ONE Jayesh l HCl 3-02 VIAL VIA [place] (XOPENEX) 00:00: NEBULIZER of 0.63 MG/3ML 00 TWICE Medicin NEBU DAILY e nebulizer solution levalbutero 2021-0 Yes [id number] INHALE ONE [facility] l HCl 3-02 VIAL VIA [place] ([employer]) 00:00: NEBULIZER of 0.63 MG/3ML 00 TWICE Medicin NEBU DAILY e nebulizer solution fluticasone 2021-0 Yes [id number] 1{puff} Inhale 1 Jayesh -salmeterol 2-24 Puff by [facility] (ADVAIR 00:00: mouth two of DISKUS) 00 times Medicin 500-50 daily. e MCG/DOSE Rinse inhaler mouth out well after use fluticasone 2021-0 Yes [id number] 1{puff} Inhale 1 Jayesh -salmeterol 2-24 Puff by Malcolm ge (ADVAIR 00:00: mouth two of DISKUS) 00 times Medicin 500-50 daily. e MCG/DOSE Rinse inhaler mouth out well after use diltiazem 2021- No 1{tbl} Take 1 Tab [facility] 120 MG TABS -21 02-21 by mouth Col lege 11:08: 00:00 two times of 37 :00 daily. Medicin e mirtazapine 2021- No [id number] 7.5mg Take 7.5 [facility] (REMERON) - 02-21 mg by [place] 7.5 MG 11:08: 00:00 mouth of tablet 28 :00 nightly. Medicin e Fluticasone 2021-0 Yes [id number] 1{puff} Inhale 1 Jayesh -Salmeterol 2-21 Puff two [facility] ,sensor, 00:00: times of 113-14 00 daily. Medicin MCG/ACT e AEPB Pancrelipas 2021-0 Yes [id number] And 1 cap [facility] e, 2-21 with [place] Lip-Prot-Am 00:00: snacks. of yl, 00 Medicin [id number] e 0 units CPEP Pancrelipas 2021-0 Yes [id number] And 1 cap [facility] e, 2-21 with [place] Lip-Prot-Am 00:00: snacks. of yl, 00 Medicin [id number] e 0 units CPEP Pancrelipas 2021-0 Yes [id number] And 1 cap [facility] e, 2-21 with [place] Lip-Prot-Am 00:00: snacks. of yl, 00 Medicin [id number] e 0 units CPEP ciprofloxac 2021- No [id number] 750mg Take 1.5 Jayesh in (CIPRO) 2-21 03-08 Tablets by Co llege 500 MG 00:00: 05:59 mouth two of tablet 00 :00 times Medicin daily for e 14 days. tobramycin, Yes [id number] 300mg Take 1 Jayesh PF, (KEREN) 2-11 Ampule by Cheo [facility] 300 MG/5ML 00:00: nebulizati o f nebulizer 00 on two Medicin solution times e daily. Alternate 28 days on with 28 days off CREON Yes [id number] TAKE 5 Jayesh [id number] 2-08 CAPSULES [facility] units CPEP 00:00: BY MOUTH of 00 WITH Medicin MEALS, AND e TAKE 2 CAPSULES BY MOUTH EVERY DAY WITH SNACKS Elexacaf-Te Yes [id number] TAKE 2 Jayesh zacaf-Ivaca 2-08 TABLETS BY Co llege f&Ivacaf 00:00: MOUTH of (TRIKAFTA) 00 EVERY Medicin 100-50-75 & MORNING e 150 MG TBPK AND 1 TABLET AT BEDTIME, 12 HOURS APART WITH FAT CONTAINING FOOD PULMOZYME Yes [id number] USE 1 VIAL [facility] 2.5 1-18 VIA College MG/2.5ML 00:00: NEBULIZER of nebulizer 00 TWICE Medicin solution DAILY e PULMOZYME Yes [id number] USE 1 VIAL [facility] 2.5 1-18 VIA College MG/2.5ML 00:00: NEBULIZER of nebulizer 00 TWICE Medicin solution DAILY e PULMOZYME Yes [id number] USE 1 VIAL Jayesh 2.5 1-18 VIA College MG/2.5ML 00:00: NEBULIZER of nebulizer 00 TWICE Medicin solution DAILY e alprazolam Yes [id number] Take one Jayesh (XANAX) 0.5 1-07 tablet Colleg e MG tablet 00:00: orally 20 of 00 minutes Medicin prior to e procedure. Can repeat another dose in 45-60 minutes as needed. alprazolam Yes [id number] Take one Jayesh (XANAX) 0.5 1-07 tablet Colleg e MG tablet 00:00: orally 20 of 00 minutes Medicin prior to e procedure. Can repeat another dose in 45-60 minutes as needed. alprazolam Yes [id number] Take one [facility] (XANAX) 0.5 1-07 tablet Colleg e MG tablet 00:00: orally 20 of 00 minutes Medicin prior to e procedure. Can repeat another dose in 45-60 minutes as needed. alprazolam Yes [id number] Take one Jayesh (XANAX) 0.5 1-07 tablet Colleg e MG tablet 00:00: orally 20 of 00 minutes Medicin prior to e procedure. Can repeat another dose in 45-60 minutes as needed. levalbutero 2020-10- No [id number] INHALE 2 [facility] l tartrate 2-27 02-21 PUFFS BY Cheo xavier (XOPENEX 00:00: 00:00 MOUTH of HFA) 45 00 :00 EVERY Medicin MCG/ACT MORNING e AERO AND EVERY inhaler EVENING. MAY TAKE ADDITIONAL 2 PUFFS THROUGHOUT DAY NEEDED metroNIDAZO 2020-10 Yes [id number] 500mg Take 1 Univers LE 500 mg 2-22 tablet by ity o f tablet 00:00: mouth [place] 00 every 12 Medical (twelve) Branch hours. metroNIDAZO 2020-10 Yes [id number] 500mg Take 1 Univers LE 500 mg 2-22 tablet by ity o f tablet 00:00: mouth [place] 00 every 12 Medical (twelve) Branch hours. metroNIDAZO 2020-10 Yes [id number] 500mg Take 1 [facility] LE 500 mg 2-22 tablet by ity o f tablet 00:00: mouth [place] 00 every 12 Medical (twelve) Branch hours. metroNIDAZO 2020-10 Yes [id number] 500mg Take 1 [facility] LE 500 mg 2-22 tablet by ity o f tablet 00:00: mouth [place] 00 every 12 Medical (twelve) Branch hours. metroNIDAZO 2020-10 Yes [id number] 500mg Take 1 [facility] LE 500 mg 2-22 tablet by ity o f tablet 00:00: mouth [place] 00 every 12 Medical (twelve) Branch hours. metroNIDAZO 2020-10 Yes [id number] 500mg Take 1 [facility] LE 500 mg 2-22 tablet by ity o f tablet 00:00: mouth [place] 00 every 12 Medical (twelve) Branch hours. metroNIDAZO 2020-10 Yes [id number] 500mg Take 1 [facility] LE 500 mg 2-22 tablet by ity o f tablet 00:00: mouth [place] 00 every 12 Medical (twelve) Branch hours. metroNIDAZO 2020-10 Yes [id number] 500mg Take 1 [facility] LE 500 mg 2-22 tablet by ity o f tablet 00:00: mouth [place] 00 every 12 Medical (twelve) Branch hours. metroNIDAZO 2020-10 Yes [id number] 500mg Take 1 [facility] LE 500 mg 2-22 tablet by ity o f tablet 00:00: mouth [place] 00 every 12 Medical (twelve) Branch hours. metroNIDAZO 2020-10 Yes [id number] 500mg Take 1 [facility] LE 500 mg 2-22 tablet by ity o f tablet 00:00: mouth [place] 00 every 12 Medical (twelve) Branch hours. metroNIDAZO 2020-10 Yes [id number] 500mg Take 1 [facility] LE 500 mg 2-22 tablet by ity o f tablet 00:00: mouth [place] 00 every 12 Medical (twelve) Branch hours. valACYclovi 2020-10 Yes [id number] 1g Take 1 Univers r 1 gram 2-21 tablet by ity of tablet 00:00: mouth 2 [place] 00 (two) Medical times Branch daily. valACYclovi 2020-10 Yes [id number] 1g Take 1 Univers r 1 gram 2-21 tablet by ity of tablet 00:00: mouth 2 [place] 00 (two) Medical times Branch daily. valACYclovi 2020-10 Yes [id number] 1g Take 1 Univers r 1 gram 2-21 tablet by ity of tablet 00:00: mouth 2 [place] 00 (two) Medical times Branch daily. valACYclovi 2020-10 Yes [id number] 1g Take 1 Univers r 1 gram 2-21 tablet by ity of tablet 00:00: mouth 2 [place] 00 (two) Medical times Branch daily. valACYclovi 2020-10- No [id number] 1g Take 1 Univers r 1 gram 2-21 11-07 tablet by ity o f tablet 00:00: 00:00 mouth 2 [place] 00 :00 (two) Medical times Branch daily. valACYclovi 2020-10- No [id number] 1g Take 1 Univers r 1 gram 2-21 11-07 tablet by ity o f tablet 00:00: 00:00 mouth 2 [place] 00 :00 (two) Medical times Branch daily. levalbutero Yes [id number] INHALE 1 [facility] l HCl 9-13 VIAL VIA [place] (XOPENEX) 00:00: NEBULIZATI of 0.63 MG/3ML 00 ON TWICE Medi [place] NEBU DAILY e nebulizer solution fluticasone Yes [id number] 2{spray 2 Sprays Jayesh (FLONASE) 06-25 } by Each [place] 50 MCG/ACT 00:00: Nostril of nasal spray 00 route Medicin daily. e Vitamin D, Yes [id number] TAKE 1 [facility] Ergocalcife 8-31 CAPSULE BY Dafne vang, 1.25 00:00: MOUTH of MG (06020 EVERY 7 Medicin [place]) CAPS DAYS e Insulin Yes [id number] INJECT [place] Lispro, 06-24 UNDER THE [employer] ge Unit Dial, 00:00: SKIN A MAX o f (HUMALOG 00 DOSE OF 20 Medic in KWIKPEN) UNITS A e 100 UNIT/ML DAY, IN SOPN CASE OF PUMP FALIURE Vitamin D, Yes [id number] TAKE 1 [facility] Ergocalcife 8-31 CAPSULE BY Dafne vang, 1.25 00:00: MOUTH of MG ( EVERY 7 Medicin [place]) CAPS DAYS e Insulin Yes [id number] INJECT [place] Lispro, 06-24 UNDER THE [employer] ge Unit Dial, 00:00: SKIN A MAX o f (HUMALOG 00 DOSE OF 20 Medic in KWIKPEN) UNITS A e 100 UNIT/ML DAY, IN SOPN CASE OF PUMP FALIURE Insulin 2021- No [id number] INJECT [facility] [place] Lispro, 06-24 UNDER THE Cheo ege Unit Dial, 00:00: 00:00 SKIN A MAX of (HUMALOG 00 :00 DOSE OF 20 Medic in KWIKPEN) UNITS A e 100 UNIT/ML DAY, IN SOPN CASE OF PUMP FALIURE insulin Yes [id number] INJECT 60 [facility] lispro 7-29 UNITS PER College (HUMALOG) 00:00: DAY VIA of 100 UNIT/ML 00 INSULIN Medic in injection PUMP e insulin Yes [id number] INJECT 60 [facility] lispro 7-29 UNITS PER College (HUMALOG) 00:00: DAY VIA of 100 UNIT/ML 00 INSULIN Medic in injection PUMP e insulin 2020-0 Yes [id number] INJECT 60 [facility] lispro 7-29 UNITS PER College (HUMALOG) 00:00: DAY VIA of 100 UNIT/ML 00 INSULIN Medic in injection PUMP e sodium 2020-0 Yes 3mL Use 3 mL Univers chloride 7-28 as ity of 0.9 % 15:03: directed [place] nebulizer 40 as needed Medic al solution for Branch Wheezing. tobramycin 2021-0 Yes 300mg 300 mg. Uni vers (KEREN) 300 7-28 ity of mg/5 mL 15:03: [place] nebulizer 40 Medical solution Branch sodium 1-0 Yes 3mL Use 3 mL [facility] chloride 7-28 as ity of 0.9 % 15:03: directed [place] nebulizer 40 as needed Medic al solution for Branch Wheezing. tobramycin 2021-0 Yes 300mg 300 mg. Uni vers (KEREN) 300 7-28 ity of mg/5 mL 15:03: [place] nebulizer 40 Medical solution Branch sodium 1-0 Yes 3mL Use 3 mL [facility] chloride 7-28 as ity of 0.9 % 15:03: directed [place] nebulizer 40 as needed Medic al solution for Branch Wheezing. tobramycin 1-0 Yes 300mg 300 mg. Uni vers (KEREN) 300 7-28 ity of mg/5 mL 15:03: [place] nebulizer 40 Medical solution Branch sodium 1-0 Yes 3mL Use 3 mL [facility] chloride 7-28 as ity of 0.9 % 15:03: directed [place] nebulizer 40 as needed Medic al solution for Branch Wheezing. tobramycin 2021-0 Yes 300mg 300 mg. Uni vers (KEREN) 300 7-28 ity of mg/5 mL 15:03: [place] nebulizer 40 Medical solution Branch sodium 1-0 Yes 3mL Use 3 mL [facility] chloride 7-28 as ity of 0.9 % 15:03: directed [place] nebulizer 40 as needed Medic al solution for Branch Wheezing. tobramycin 2021-0 Yes 300mg 300 mg. [facility] vers (KEREN) 300 7-28 ity of mg/5 mL 15:03: [place] nebulizer 40 Medical solution Branch sodium 2021-0 Yes 3mL Use 3 mL [facility] chloride 7-28 as ity of 0.9 % 15:03: directed [place] nebulizer 40 as needed Medic al solution for Branch Wheezing. tobramycin 2021-0 Yes 300mg 300 mg. [facility] (KEREN) 300 7-28 ity of mg/5 mL 15:03: [place] nebulizer 40 Medical solution Branch sodium 1-0 Yes 3mL Use 3 mL [facility] chloride 7-28 as ity of 0.9 % 15:03: directed [place] nebulizer 40 as needed Medic al solution for Branch Wheezing. tobramycin 2021-0 Yes 300mg 300 mg. [facility] (KEREN) 300 7-28 ity of mg/5 mL 15:03: [place] nebulizer 40 Medical solution Branch sodium 2020-0 Yes 3mL Use 3 mL [facility] chloride 7-28 as ity of 0.9 % 15:03: directed [place] nebulizer 40 as needed Medic al solution for Branch Wheezing. tobramycin 2021-0 Yes 300mg 300 mg. [facility] (KEREN) 300 7-28 ity of mg/5 mL 15:03: [place] nebulizer 40 Medical solution Branch sodium 2020-0 Yes 3mL Use 3 mL [facility] chloride 7-28 as ity of 0.9 % 15:03: directed [place] nebulizer 40 as needed Medic al solution for Branch Wheezing. tobramycin 1-0 Yes 300mg 300 mg. [facility] (KEREN) 300 7-28 ity of mg/5 mL 15:03: [place] nebulizer 40 Medical solution Branch sodium 2020-0 Yes 3mL Use 3 mL [facility] chloride 7-28 as ity of 0.9 % 15:03: directed [place] nebulizer 40 as needed Medic al solution for Branch Wheezing. tobramycin 2021-0 Yes 300mg 300 mg. [facility] (KEREN) 300 7-28 ity of mg/5 mL 15:03: [place] nebulizer 40 Medical solution Branch sodium 1-0 Yes 3mL Use 3 mL [facility] chloride 7-28 as ity of 0.9 % 15:03: directed [place] nebulizer 40 as needed Medic al solution for Branch Wheezing. tobramycin 2021-0 Yes 300mg 300 mg. [facility] (KEREN) 300 7-28 ity of mg/5 mL 15:03: [place] nebulizer 40 Medical solution Branch Insulin 1-0 Yes [id number] Inject [place] Glargine 6-04 subcutaneo Colle [facility] (LANTUS 00:00: usly a MAX of SOLOSTAR) 00 dose of 14 Medi [place] 100 UNIT/ML units a e SOPN day. In case of pump failure. Insulin Pen Yes [id number] Use as [facility] Needle (BD 6-04 directed [facility] PEN NEEDLE 00:00: to inject of SAIRA U/F) 00 5 times Medicin 32G X 4 MM daily. In e MISC case of pump failure. Insulin Yes [id number] Inject [place] Glargine 6-04 subcutaneo [facility] (LANTUS 00:00: usly a MAX of SOLOSTAR) 00 dose of 14 Medi [place] 100 UNIT/ML units a e SOPN day. In case of pump failure. Insulin Pen Yes [id number] Use as Jayesh Needle (BD 6-04 directed [facility] PEN NEEDLE 00:00: to inject of SAIRA U/F) 00 5 times Medicin 32G X 4 MM daily. In e [facility] case of pump failure. Insulin Yes [id number] Inject [place] Glargine 6-04 subcutaneo Col[facility] (LANTUS 00:00: usly a MAX of SOLOSTAR) 00 dose of 14 Medi [place] 100 UNIT/ML units a e SOPN day. In case of pump failure. Insulin Pen Yes [id number] Use as [facility] Needle (BD 6-04 directed [facility]le [facility] PEN NEEDLE 00:00: to inject of SAIRA U/F) 00 5 times Medicin 32G X 4 MM daily. In e MISC case of pump failure. BAQSIMI TWO Yes 1{each} 1 Each by [employer] PACK 3 5-06 Nasal [facility] MG/DOSE 00:00: route as of POWD 00 needed Medicin (for e severe hypoglycem ia). BAQSIMI TWO Yes 1{each} 1 Each by [employer] PACK 3 5-06 [facility] MG/DOSE 00:00: route as of POWD 00 needed Medicin (for e severe hypoglycem ia). BAQSIMI TWO Yes 1{each} 1 Each by [employer] PACK 3 5-06 Nasal [facility] MG/DOSE 00:00: route as of POW needed Medicin (for e severe hypoglycem ia). ondansetron Yes [id number] 4mg Take 1 [facility] (ZOFRAN) 4 5-04 Tablet by [facility] MG tablet 00:00: mouth of 00 every 8 Medicin hours as e needed for Nausea. TAKE 1 TABLET BY MOUTH EVERY 8 HOURS NEEDED FOR NAUSEA Nutritional 0 Yes [id number] 1{can} Take 1 Can Jayesh Supplements 5-04 by mouth [facility] (GLUCERNA 00:00: two times of SHAKE) LIQD 00 daily. Medici n DRINK ONE e BOTTLE BY MOUTH TWICE DAILY ondansetron Yes [id number] 4mg Take 1 Jayesh (ZOFRAN) 4 5-04 Tablet by [facility] MG tablet 00:00: mouth of 00 every 8 Medicin hours as e needed for Nausea. TAKE 1 TABLET BY MOUTH EVERY 8 HOURS NEEDED FOR NAUSEA ondansetron Yes [id number] 4mg Take 1 [facility] (ZOFRAN) 4 5-04 Tablet by [facility] MG tablet 00:00: mouth of 00 every 8 Medicin hours as e needed for Nausea. TAKE 1 TABLET BY MOUTH EVERY 8 HOURS NEEDED FOR NAUSEA ondansetron Yes [id number] 4mg Take 1 [facility] (ZOFRAN) 4 5-04 Tablet by [facility] MG tablet 00:00: mouth of 00 every 8 Medicin hours as e needed for Nausea. TAKE 1 TABLET BY MOUTH EVERY 8 HOURS NEEDED FOR NAUSEA duloxetine Yes 30mg Take 1 [facility] (CYMBALTA) 5-03 capsule by [facility] 30 MG 00:00: mouth of capsule 00 daily. Medicin e nortriptyli Yes 20mg Take 2 [facility] 5-03 Capsules [facility] (PAMELOR) 00:00: by mouth of 10 MG 00 nightly. Medicin capsule e Glucose Yes CHECK [facility] Blood 5-03 GLUCOSE 5 [place] Strips 00:00: TIMES of (CONTOUR 00 DAILY Medicin NEXT TEST) e duloxetine Yes 30mg Take 1 [facility] (CYMBALTA) 5-03 capsule by [facility]ge 30 MG 00:00: mouth of capsule 00 daily. Medicin e nortriptyli Yes 20mg Take 2 [facility] ne 5-03 Capsules [place] (PAMELOR) 00:00: by mouth of 10 MG 00 nightly. Medicin capsule e Glucose Yes CHECK [facility] Blood 5-03 GLUCOSE 5 [place] Strips 00:00: TIMES of (CONTOUR 00 DAILY Medicin NEXT TEST) e duloxetine Yes 30mg Take 1 [facility] (CYMBALTA) 5-03 capsule by [facility]ge 30 MG 00:00: mouth of capsule 00 daily. Medicin e nortriptyli Yes 20mg Take 2 [facility] ne 5-03 Capsules [place] (PAMELOR) 00:00: by mouth of 10 MG 00 nightly. Medicin capsule e Glucose Yes CHECK [facility] Blood 5-03 GLUCOSE 5 [place] Strips 00:00: TIMES of (CONTOUR 00 DAILY Medicin NEXT TEST) e duloxetine Yes 30mg Take 1 [facility] (CYMBALTA) 5-03 capsule by [facility]ge 30 MG 00:00: mouth of capsule 00 daily. Medicin e nortriptyli Yes 20mg Take 2 [facility] 5-03 Capsules [place] (PAMELOR) 00:00: by mouth of 10 MG 00 nightly. Medicin capsule e Accu-Chek 0 Yes [id number] 1{each} 1 Each 6 [facility] FastClix 4-23 times [place] Lancets 00:00: daily. of [facility] [employer] 00 Check 6 Medicin times per e day Accu-Chek 2020-0 Yes [id number] 1{each} 1 Each 6 [facility] FastClix 4-23 times [place] Lancets 00:00: daily. of [facility] 00 Check 6 Medicin times per e day Accu-Chek 2020-0 Yes [id number] 1{each} 1 Each 6 [facility] FastClix 4-23 times [place] Lancets 00:00: daily. of [facility] 00 Check 6 Medicin times per e day cetirizine, Yes [id number] 10mg Take 1 [facility] ZYRTEC, 10 4-14 Tablet by [facility] MG tablet 00:00: mouth of 00 daily. Medicin e levalbutero Yes [id number] 4{puff} Inhale 4 [facility] l tartrate 4-14 Puffs by [facility] (XOPENEX 00:00: mouth two of HFA) 45 00 times Medicin MCG/ACT daily. e AERO inhaler levalbutero Yes [id number] 4{puff} Inhale 4 Jayesh l tartrate 4-14 Puffs by [facility] [employer] (XOPENEX 00:00: mouth two of HFA) 45 00 times Medicin MCG/ACT daily. e AERO inhaler levalbutero Yes [id number] 4{puff} Inhale 4 Jayesh l tartrate 4-14 Puffs by [facility] [employer] (XOPENEX 00:00: mouth two of HFA) 45 00 times Medicin MCG/ACT daily. e AERO inhaler levalbutero Yes [id number] 4{puff} Inhale 4 Jayesh l tartrate 4-14 Puffs by [facility] (XOPENEX 00:00: mouth two of HFA) 45 00 times Medicin MCG/ACT daily. e AERO inhaler cetirizine, 2021- No [id number] 10mg Take 1 [facility] ZYRTEC, 10 4-14 07-[address] [facility] lege MG tablet 00:00: 00:00 mouth of 00 :00 daily. Medicin e mirtazapine Yes [id number] 7.5mg Take 7.5 [facility] (REMERON) 3-15 mg by [place] 7.5 MG 16:19: mouth of tablet 05 nightly. Medicin e diltiazem Yes 1{tbl} Take 1 Tab [facility] 120 MG TABS 3-15 by mouth [facility] 16:19: two times of 05 daily. Medicin e azithromyci Yes [id number] 500mg Take 1 Jayesh n 3-10 Tablet by [place] (ZITHROMAX) 00:00: mouth of 500 MG 00 every Medicin tablet Wednesday, e Wednesday, Wednesday. sodium Yes [id number] 4mL Take 1 [facility] chloride, 3-10 Ampule by [facility] Inhalant, 00:00: nebulizati of (HYPER-ELISSA) 00 on two Medici n 7 % times e nebulizer daily. solution fluticasone Yes [id number] 2{spray 2 Sprays Jayesh (FLONASE) 3-10 } by Each [facility] 50 MCG/ACT 00:00: Nostril of nasal spray 00 route Medicin daily. e sodium Yes [id number] 4mL Take 1 [facility] chloride, 3-10 Ampule by [facility]le [facility] Inhalant, 00:00: nebulizati of (HYPER-ELISSA) 00 on two Medici n 7 % times e nebulizer daily. solution sodium Yes [id number] 4mL Take 1 [facility] chloride, 3-10 Ampule by Colle [facility] Inhalant, 00:00: nebulizati of (HYPER-ELISSA) 00 on two Medici n 7 % times e nebulizer daily. solution sodium Yes [id number] 4mL Take 1 [facility] chloride, 3-10 Ampule by [facility]le [facility] Inhalant, 00:00: nebulizati of (HYPER-ELISSA) 00 on two Medici n 7 % times e nebulizer daily. solution sodium Yes [id number] 4mL Take 1 [facility] chloride, 3-10 Ampule by Colle [facility] Inhalant, 00:00: nebulizati of (HYPER-ELISSA) 00 on two Medici n 7 % times e nebulizer daily. solution azithromyci 2021- No [id number] 500mg Take 1 [facility] n 3-10 02-21 Tablet by [place] (ZITHROMAX) 00:00: 00:00 mouth of 500 MG 00 :00 every Medicin tablet Wednesday, e Wednesday, Wednesday. albuterol Yes USE 1 VIAL [facility] (PROVENTIL) 2- IN [facility] (2.5 mg/3 00:00: NEBULIZER of mL) 0.083% 00 THREE Medicin nebulizer TIMES e solution DAILY NEEDED FOR SHORTNESS OF BREATH albuterol Yes USE 1 VIAL [facility] (PROVENTIL) 2- IN [facility] (2.5 mg/3 00:00: NEBULIZER of mL) 0.083% 00 THREE Medicin nebulizer TIMES e solution DAILY NEEDED FOR SHORTNESS OF BREATH albuterol Yes USE 1 VIAL [facility] (PROVENTIL) 2- IN [place] (2.5 mg/3 00:00: NEBULIZER of mL) 0.083% 00 THREE Medicin nebulizer TIMES e solution DAILY NEEDED FOR SHORTNESS OF BREATH albuterol Yes USE 1 VIAL [facility] (PROVENTIL) - IN [place] (2.5 mg/3 00:00: NEBULIZER of mL) 0.083% 00 THREE Medicin nebulizer TIMES e solution DAILY NEEDED FOR SHORTNESS OF BREATH albuterol Yes USE 1 VIAL [facility] (PROVENTIL) - IN [place] (2.5 mg/3 00:00: NEBULIZER of mL) 0.083% 00 THREE Medicin nebulizer TIMES e solution DAILY NEEDED FOR SHORTNESS OF BREATH omeprazole 0 Yes [id number] TAKE 1 [facility] (PRILOSEC) 2-11 CAPSULE BY Col lege 20 MG 00:00: MOUTH of capsule 00 TWICE Medicin DAILY e omeprazole 2020-0 Yes [id number] TAKE 1 [facility] (PRILOSEC) 2-11 CAPSULE BY Col lege 20 MG 00:00: MOUTH of capsule 00 TWICE Medicin DAILY e omeprazole 2020-0 Yes [id number] TAKE 1 [facility] (PRILOSEC) 2-11 CAPSULE BY Col lege 20 MG 00:00: MOUTH of capsule 00 TWICE Medicin DAILY e omeprazole 2020-0 Yes [id number] TAKE 1 [facility] (PRILOSEC) 2-11 CAPSULE BY Col lege 20 MG 00:00: MOUTH of capsule 00 TWICE Medicin DAILY e omeprazole 2020-0 Yes [id number] TAKE 1 [facility] (PRILOSEC) 2-11 CAPSULE BY Col lege 20 MG 00:00: MOUTH of capsule 00 TWICE Medicin DAILY e Elexacaf-Te 2020-0 Yes [id number] Take 2 [facility] zacaf-Ivaca 1-15 tablets by Co llege f&Ivacaf 00:00: mouth of (TRIKAFTA) 00 every Medicin 100-50-75 & morning e 150 MG TBPK AND 1 tablet (inactive) at bedtime. Take 12 hours apart with fat containing food Gal[place] Yes 120mg Inject 120 [facility] b-gnlm 1-14 mg into [facility] (EMGALITY) 00:00: the skin of 120 MG/ML 00 every 30 Medici n SOAJ days. e [place] Yes 120mg Inject 120 Jayesh b-gnlm 1-14 mg into [facility] (EMGALITY) 00:00: the skin of 120 MG/ML 00 every 30 Medici n SOAJ days. e [place] Yes 120mg Inject 120 Jayesh b-gnlm 1-14 mg into [facility] (EMGALITY) 00:00: the skin of 120 MG/ML 00 every 30 Medici n SOAJ days. e [place] Yes 120mg Inject 120 [facility] b-gnlm 1-14 mg into [facility] (EMGALITY) 00:00: the skin of 120 MG/ML 00 every 30 Medici n SOAJ days. e [place] Yes 120mg Inject 120 [facility] b-gnlm 1-14 mg into [facility] (EMGALITY) 00:00: the skin of 120 MG/ML 00 every 30 Medici n SOAJ days. e Insulin Pen Yes [id number] Use as [facility] Needle (BD 1-13 directed [facility] PEN NEEDLE 00:00: to inject of SAIRA U/F) 00 6 times Medicin 32G X 4 MM daily e MISC diazepam Yes [id number] 2mg Take 1 [place] (VALIUM) 2 1-04 Tablet by [facility] MG tablet 00:00: mouth as of 00 needed for Medicin Anxiety. e Before procedure. Vitamin D, 2019-10 Yes [id number] Take 1 [facility] Ergocalcife 2-11 capsule by Co yaniv vang 1.25 00:00: mouth of MG (95046 00 every 7 Medicin [place]) CAPS days e cetirizine, 2019-10 Yes [id number] TAKE 1 [facility] ZYRTEC, 10 1-30 TABLET BY [facility] MG tablet 00:00: MOUTH of 00 DAILY AND Medicin EXTRA 1/2 e TABLET IF MEDICATION OVER [employer] levalbutero 2019-10 Yes [id number] INHALE 2 Jayesh l tartrate 1-11 PUFFS BY [facility] (XOPENEX 00:00: MOUTH of HFA) 45 00 EVERY Medicin MCG/ACT MORNING e AERO AND EVERY inhaler EVENING, MAY TAKE ADDITIONAL 2 PUFFS THROUGHOUT DAY IF NEEDED Nutritional 2019-10 Yes [id number] DRINK ONE [facility] Supplements 1-05 BOTTLE BY [facility] (GLUCERNA 00:00: MOUTH of SHAKE) LIQD 00 TWICE Medicin DAILY e Continuous 2019-10 Yes 1{each} 1 Each [facility] Blood Gluc 0-21 every 10 [facility]le [facility] Sensor 00:00: days. of (DEXCOM G6 00 Medicin SENSOR) e MISC Continuous 2019-10 Yes 1{each} 1 Each [facility] Blood Gluc 0-21 continuous Col lege [employer] 00:00: . of (DEXCOM G6 00 Medicin PAINT TECHNICIAN) e EKTA Continuous 2019-10 Yes 1{each} 1 Each [facility] Blood Gluc 0-21 every 90 [facility]le ge Transmit 00:00: days. of (DEXCOM G6 00 Medicin TRANSMITTER e ) MISC Continuous 2019-10 Yes 1{each} 1 Each [facility] Blood Gluc 0-21 every 10 [facility]le [facility] Sensor 00:00: days. of (DEXCOM G6 00 Medicin SENSOR) e MISC Continuous 2019-10 Yes 1{each} 1 Each [facility] Blood Gluc 0-21 continuous [facility] [employer] 00:00: . of (DEXCOM G6 00 Medicin PAINT TECHNICIAN) e EKTA Continuous 2019-10 Yes 1{each} 1 Each [facility] Blood Gluc 0-21 every 90 [facility]le [facility] Transmit 00:00: days. of (DEXCOM G6 00 Medicin TRANSMITTER e ) MISC Continuous 2019-10 Yes 1{each} 1 Each [facility] Blood Gluc 0-21 every 10 [facility]le [facility] Sensor 00:00: days. of (DEXCOM G6 00 Medicin SENSOR) e MISC Continuous 2019-10 Yes 1{each} 1 Each [facility] Blood Gluc 0-21 continuous [facility] [employer] 00:00: . of (DEXCOM G6 00 Medicin PAINT TECHNICIAN) e EKTA Continuous 2019-10 Yes 1{each} 1 Each [facility] Blood Gluc 0-21 every 90 [facility]le ge Transmit 00:00: days. of (DEXCOM G6 00 Medicin TRANSMITTER e ) MISC Continuous 2019-10 Yes 1{each} 1 Each [facility] Blood Gluc 0-21 every 10 [facility]le [facility] Sensor 00:00: days. of (DEXCOM G6 00 Medicin SENSOR) e MISC Continuous 2019-10 Yes 1{each} 1 Each [facility] Blood Gluc 0-21 continuous [facility] [employer] 00:00: . of (DEXCOM G6 00 Medicin PAINT TECHNICIAN) e EKTA Continuous 2019-10 Yes 1{each} 1 Each [facility] Blood Gluc 0-21 every 90 [facility]le ge Transmit 00:00: days. of (DEXCOM G6 00 Medicin TRANSMITTER e ) MISC Continuous 2019-10 Yes 1{each} 1 Each [facility] Blood Gluc 0-21 every 10 [facility]le ge Sensor 00:00: days. of (DEXCOM G6 00 Medicin SENSOR) e MISC Continuous 2019-10 Yes 1{each} 1 Each [facility] Blood Gluc 0-21 continuous [facility] [employer] 00:00: . of (DEXCOM G6 00 Medicin PAINT TECHNICIAN) e EKTA Continuous 2019-10 Yes 1{each} 1 Each [facility] Blood Gluc 0-21 every 90 [facility]le ge Transmit 00:00: days. of (DEXCOM G6 00 Medicin TRANSMITTER e ) MISC Pancrelipas 2019-10 Yes [id number] TAKE 5 Jayesh e, 0-06 CAPSULES [employer] Lip-Prot-Am 00:00: BY MOUTH of yl, (CREON) 00 WITH Medicin [id number] MEALS, AND e units CPEP TAKE 2 [...] Yes 2{puff} Inhale 2 [facility] l (XOPENEX 04 Puffs. ity of HFA) 45 14:59: [place] mcg/actuati 31 Medical on inhaler Branch esomeprazol 2019-0 Yes 40mg Take 40 mg Univers e (NEXIUM) 06-28 by mouth ity o f 40 mg 14:59: daily with [place] capsule 31 breakfast. Medica l Branch albuterol 2019-0 Yes 1{ampul 1 Ampule. [facility] (ACCUNEB) 9-04 e} ity of 0.63 mg/3 14:59: [place] mL 31 Medical nebulizer Branch solution levalbutero 2019-0 Yes 2{puff} Inhale 2 [facility] l (XOPENEX 9-04 Puffs. ity of HFA) 45 14:59: [place] mcg/actuati 31 Medical on inhaler Branch esomeprazol 2020-0 Yes 40mg Take 40 mg Univers e (NEXIUM) 9-04 by mouth ity o f 40 mg 14:59: daily with [place] capsule 31 breakfast. Medica l Branch albuterol 2020-0 Yes 1{ampul 1 Ampule. [facility] (ACCUNEB) 9 e} ity of 0.63 mg/3 14:59: [place] mL 31 Medical nebulizer Branch solution levalbutero 2019-0 Yes 2{puff} Inhale 2 [facility] l (XOPENEX 9-04 Puffs. ity of HFA) 45 14:59: [place] mcg/actuati 31 Medical on inhaler Branch esomeprazol 2019-0 Yes 40mg Take 40 mg Univers e (NEXIUM) 04 by mouth ity o f 40 mg 14:59: daily with [place] capsule 31 breakfast. Medica l Branch albuterol 2020-0 Yes 1{ampul 1 Ampule. [facility] (ACCUNEB) 9 e} ity of 0.63 mg/3 14:59: [place] mL 31 Medical nebulizer Branch solution levalbutero 2020-0 Yes 2{puff} Inhale 2 [facility] l (XOPENEX 9-04 Puffs. ity of HFA) 45 14:59: [place] mcg/actuati 31 Medical on inhaler Branch esomeprazol 2020-0 Yes 40mg Take 40 mg Univers e (NEXIUM) 904 by mouth ity o f 40 mg 14:59: daily with [place] capsule 31 breakfast. Medica l Branch albuterol 2020-0 Yes 1{ampul 1 Ampule. [facility] (ACCUNEB) 904 e} ity of 0.63 mg/3 14:59: [place] mL 31 Medical nebulizer Branch solution levalbutero 2020-0 Yes 2{puff} Inhale 2 [facility] l (XOPENEX 9-04 Puffs. ity of HFA) 45 14:59: [place] mcg/actuati 31 Medical on inhaler Branch esomeprazol 2020-0 Yes 40mg Take 40 mg Univers e (NEXIUM) 9-04 by mouth ity o f 40 mg 14:59: daily with [place] capsule 31 breakfast. Medica l Branch albuterol 2020-0 Yes 1{ampul 1 Ampule. [facility] (ACCUNEB) 9 e} ity of 0.63 mg/3 14:59: [place] mL 31 Medical nebulizer Branch solution levalbutero 2020-0 Yes 2{puff} Inhale 2 [facility] l (XOPENEX 9-04 Puffs. ity of HFA) 45 14:59: [place] mcg/actuati 31 Medical on inhaler Branch esomeprazol 2020-0 Yes 40mg Take 40 mg Univers e (NEXIUM) 904 by mouth ity o f 40 mg 14:59: daily with [place] capsule 31 breakfast. Medica l Branch albuterol 2020-0 Yes 1{ampul 1 Ampule. Univers (ACCUNEB) 9 e} ity of 0.63 mg/3 14:59: [place] mL 31 Medical nebulizer Branch solution levalbutero 2020-0 Yes 2{puff} Inhale 2 [facility] l (XOPENEX 9- Puffs. ity of HFA) 45 14:59: [place] mcg/actuati 31 Medical on inhaler Branch esomeprazol 2020-0 Yes 40mg Take 40 mg Univers e (NEXIUM) 9-04 by mouth ity o f 40 mg 14:59: daily with [place] capsule 31 breakfast. Medica l Branch albuterol 2020-0 Yes 1{ampul 1 Ampule. Univers (ACCUNEB) 9 e} ity of 0.63 mg/3 14:59: [place] mL 31 Medical nebulizer Branch solution levalbutero 2020-0 Yes 2{puff} Inhale 2 Univers l (XOPENEX 9-04 Puffs. ity of HFA) 45 14:59: [place] mcg/actuati 31 Medical on inhaler Branch esomeprazol 2020-0 Yes 40mg Take 40 mg Univers e (NEXIUM) 9-04 by mouth ity o f 40 mg 14:59: daily with [place] capsule 31 breakfast. Medica l Branch albuterol 2020-0 Yes 1{ampul 1 Ampule. Univers (ACCUNEB) 904 e} ity of 0.63 mg/3 14:59: [place] mL 31 Medical nebulizer Branch solution levalbutero 2020-0 Yes 2{puff} Inhale 2 Univers l (XOPENEX 9-04 Puffs. ity of HFA) 45 14:59: [place] mcg/actuati 31 Medical on inhaler Branch esomeprazol Yes 40mg Take 40 mg Univers e (NEXIUM) 9-04 by mouth ity o f 40 mg 14:59: daily with [place] capsule 31 breakfast. Medica l Branch albuterol Yes 1{ampul 1 Ampule. Univers (ACCUNEB) 9 e} ity of 0.63 mg/3 14:59: [place] mL 31 Medical nebulizer Branch solution levalbutero Yes 2{puff} Inhale 2 Univers l (XOPENEX 9-04 Puffs. ity of HFA) 45 14:59: [place] mcg/actuati 31 Medical on inhaler Branch esomeprazol Yes 40mg Take 40 mg Univers e (NEXIUM) 904 by mouth ity o f 40 mg 14:59: daily with [place] capsule 31 breakfast. Medica l Branch albuterol Yes 1{ampul 1 Ampule. Univers (ACCUNEB) 9 e} ity of 0.63 mg/3 14:59: [place] mL 31 Medical nebulizer Branch solution levalbutero Yes 2{puff} Inhale 2 Univers l (XOPENEX 9-04 Puffs. ity of HFA) 45 14:59: [place] mcg/actuati 31 Medical on inhaler Branch dornase Yes [id number] 2.5mg Take 1 [place] alpha 8-27 Ampule by [place] (PULMOZYME) 00:00: nebulizati of 1 MG/ML 00 on two Medicin nebulizer times e solution daily. Diclofenac 2019-0 Yes 50mg Take 50 mg [facility] Potassium 8-27 by mouth Colleg e 50 MG PACK 00:00: daily as of 00 needed Medicin (headache) e . Do not exceed 2 doses per week. tramadol 2019-0 Yes [id number] 1{tbl} Take 1 Tab [facility] (ULTRAM) 50 8-27 by mouth 2 Co l[facility] MG tablet 00:00: times of 00 daily as Medicin needed for e Pain (Chronic back pain). zolpidem 2019-0 Yes [id number] 10mg Take 1 Tab [facility] (AMBIEN) 10 8-27 by mouth [facility] MG tablet 00:00: nightly as of 00 needed for Medicin Sleep. e Diclofenac 2019-0 Yes 50mg Take 50 mg [facility] Potassium 8-27 by mouth Colleg e 50 MG PACK 00:00: daily as of 00 needed Medicin (headache) e . Do not exceed 2 doses per week. tramadol 2020-0 Yes [id number] 1{tbl} Take 1 Tab [facility] (ULTRAM) 50 8-27 by mouth 2 Co [facility] MG tablet 00:00: times of 00 daily as Medicin needed for e Pain (Chronic back pain). zolpidem 2020-0 Yes [id number] 10mg Take 1 Tab [facility] (AMBIEN) 10 8-27 by mouth [facility] MG tablet 00:00: nightly as of 00 needed for Medicin Sleep. e Diclofenac 0 Yes 50mg Take 50 mg [facility] Potassium 8-27 by mouth Colleg e 50 MG PACK 00:00: daily as of 00 needed Medicin (headache) e . Do not exceed 2 doses per week. tramadol 2019-0 Yes [id number] 1{tbl} Take 1 Tab [facility] (ULTRAM) 50 8-27 by mouth 2 Co [facility] MG tablet 00:00: times of 00 daily as Medicin needed for e Pain (Chronic back pain). zolpidem 2019-0 Yes [id number] 10mg Take 1 Tab [facility] (AMBIEN) 10 8-27 by mouth [facility] MG tablet 00:00: nightly as of 00 needed for Medicin Sleep. e Diclofenac 2019-0 Yes 50mg Take 50 mg [facility] Potassium 8-27 by mouth Colleg e 50 MG PACK 00:00: daily as of 00 needed Medicin (headache) e . Do not exceed 2 doses per week. tramadol 2020-0 Yes [id number] 1{tbl} Take 1 Tab [facility] (ULTRAM) 50 8-27 by mouth 2 Co [facility] MG tablet 00:00: times of 00 daily as Medicin needed for e Pain (Chronic back pain). zolpidem 2020-0 Yes [id number] 10mg Take 1 Tab [facility] (AMBIEN) 10 8-27 by mouth [facility] MG tablet 00:00: nightly as of 00 needed for Medicin Sleep. e Diclofenac 2020-0 Yes 50mg Take 50 mg [facility] Potassium 8-27 by mouth Colleg e 50 MG PACK 00:00: daily as of 00 needed Medicin (headache) e . Do not exceed 2 doses per week. tramadol 2020-0 Yes [id number] 1{tbl} Take 1 Tab [facility] (ULTRAM) 50 8-27 by mouth 2 Co [facility] MG tablet 00:00: times of 00 daily as Medicin needed for e Pain (Chronic back pain). zolpidem 2020-0 Yes [id number] 10mg Take 1 Tab [facility] (AMBIEN) 10 [...] capsule NIGHT e BETHKIS 300 2020-0 Yes [id number] 1{ampul 1 Ampule Jayesh MG/4ML NEBU 6-05 e} by [facility] 00:00: Inhalation of 00 route two Medicin times e daily. Alternate 28 days on and 28 days off. Brand name medically necessary. Multiple 2020-0 Yes [id number] Take 1 [place] Vitamins-Mi 5-28 capsule by Co llege nerals (MVW 00:00: mouth 2 of COMPLETE 00 times Medicin FORMULATION daily e D3000) CAPS (with meals). Multiple 2020-0 Yes [id number] Take 1 [place] Vitamins-Mi 5-28 capsule by Co llege nerals (MVW 00:00: mouth 2 of COMPLETE 00 times Medicin FORMULATION daily e D3000) CAPS (with meals). Multiple 2020-0 Yes [id number] Take 1 [place] Vitamins-Mi 5-28 capsule by [facility] (MVW 00:00: mouth 2 of COMPLETE 00 times Medicin FORMULATION daily e D3000) CAPS (with meals). Multiple 2020-0 Yes [id number] Take 1 [place] Vitamins-Mi 5-28 capsule by [facility] (MVW 00:00: mouth 2 of COMPLETE 00 times Medicin FORMULATION daily e D3000) CAPS (with meals). duloxetine 2019-0 Yes 30mg Take 1 Cap [facility] (CYMBALTA) 3-23 by mouth Colle [facility] 30 MG 00:00: daily. of capsule 00 Medicin e ondansetron 2020-0 Yes [id number] TAKE 1 Jayesh (ZOFRAN) 4 3-16 TABLET BY Che[facility] MG tablet 00:00: MOUTH of 00 EVERY 8 Medicin HOURS e NEEDED FOR NAUSEA diltiazem 2019-0 Yes 1{tbl} Take 1 Tab [facility] 120 MG TABS 2-27 by mouth Cheo ege 15:41: two times of 50 daily. Medicin e mirtazapine 2019-0 Yes [id number] 7.5mg Take 7.5 [facility] (REMERON) 2-27 mg by [place] 7.5 MG 15:41: mouth of tablet 49 nightly. Medicin e Vitamin D, 2019-0 Yes [id number] TAKE 1 [facility] Ergocalcife 2-27 CAPSULE BY Co yaniv rol, 1.25 00:00: MOUTH of MG ([id number] 00 EVERY 7 Medicin UT) CAPS DAYS e dornase 2019-0 Yes [id number] 2.5mg Take 1 [place] alpha 2-25 Ampule by [place] (PULMOZYME) 00:00: nebulizati of 1 MG/ML 00 on two Medicin nebulizer times e solution daily. sodium 2020-0 Yes [id number] 4mL Take 1 [place] chloride, 2-25 Ampule by [facility] Inhalant, 00:00: nebulizati of (HYPER-ELISSA) 00 on two Medici n 7 % times e nebulizer daily. solution albuterol 2019-0 Yes USE 1 VIAL [facility] (PROVENTIL) 2-14 V[address] [place] (2.5 mg/3 00:00: NEBULIZER of mL) 0.083% 00 THREE Medicin nebulizer TIMES e solution DAILY NEEDED FOR SHORTNESS OF BREATH Elexacaf-Te 2019-0 Yes [id number] Take 2 [facility] zacaf-Ivaca 2-13 tablets by Co yaniv f&Ivacaf 00:00: mouth of (TRIKAFTA) 00 every Medicin 100-50-75 & morning e 150 MG TBPK AND 1 tablet at bedtime. Take 12 hours apart with fat containing food ciprofloxac 2019-0 2020- No [id number] 750mg Take 1 Tab [facility] in (CIPRO) 2-13 12-22 by mouth Choe ege 750 MG 00:00: 05:59 two times of tablet 00 :00 daily for Medicin 14 days. e zolpidem 2019- Yes [id number] 10mg Take 1 Tab Jayesh (AMBIEN) 10 -03 by mouth [facility] MG tablet 00:00: nightly as of 00 needed for Medicin Sleep. e cetirizine, 2019- Yes [id number] 10mg Take 1 Tab [facility] ZYRTEC, -03 by mouth [place] (ZYRTEC 00:00: daily. of ALLERGY) 10 00 Medicin MG tablet e azithromyci Yes [id number] 500mg Take 1 Tab [facility] n 10-27 by mouth [place] (ZITHROMAX) 00:00: every of 500 MG 00 Wednesday, Medicin tablet Wednesday, e Wednesday. predniSONE Yes [id number] 5mg Take 0.5 [facility] (DELTASONE) 1-02 Tabs by Colle ge 10 MG 00:00: mouth of tablet 00 daily. Medicin e omeprazole 2018-10 Yes [id number] TAKE 1 [facility] (PRILOSEC) 2-30 CAPSULE BY Col lege 20 MG 00:00: MOUTH of capsule 00 TWICE Medicin DAILY e zolpidem 2018-10 Yes 10mg Take [address] [facility] (AMBIEN) 10 2-11 by mouth Luke s mg tablet 13:58: every Medical 59 night as Center needed. albuterol 2018-10 Yes 1{ampul Take [address] [facility] (ACCUNEB) 2-11 e} ampule by Jaret 0.63 mg/3 13:58: nebulizati Me dical mL 22 on every 6 Center nebulizer (six) solution hours as needed for Wheezing. levalbutero 2018-10 Yes 2{puff} Inhale [address] [facility] (XOPENEX 2-11 puffs by Jaret HFA) 45 13:58: mouth via Medic al mcg/actuati 22 inhaler Cente r on inhaler every 6 (six) hours as needed for Wheezing . lipase-prot 2018-10 Yes 4{capsu Take [address] ease-amylas 2-11 le} capsules Luke s e 13:58: by mouth 3 Medical 5,000-17,00 22 (three) Cente r 0 -27,000 times unit E.C. daily with cap meals 4 capsule with meals, 2 capsules with snacks. albuterol 2018-10 Yes 2.5mg Q.[id number] Take 2.[address] [facility] (PROVENTIL) 2-11 [id number] mg by L ukes 2.5 mg /3 13:58: 3D nebulizati Me dical mL (0.083 22 on 3 Center %) (three) nebulizer times solution daily. cholecalcif 2018-10 Yes 2000U QD Take 2,[address] [facility] teja, 2-11 Units by [facility] vitamin D3, 13:58: mouth Medic al 2,000 unit 22 daily. Center Tab mirtazapine 2018-10 Yes 7.5mg QD Take 7.[address] (REMERON) 2-11 mg by [facility] 7.5 MG 13:58: mouth Medical tablet 22 nightly. [place] nortriptyli 2018-10 Yes 10mg QD Take [address] [facility] ne 2-11 by mouth [facility] (PAMELOR) 13:58: nightly. [facility] alfonso 10 MG 22 [place] capsule UNKNOWN 2018-10 Yes Med Name[facility] TRIKAFTA [facility] 13:58: 100MG, Medical 21 50MG, 75 Center MG AND 150 MG 2 TAB IN AM AND 1 TAB IN PM . dronabinol 2018-10 Yes [id number] 2.5mg Take 1 Cap Jayesh (MARINOL) 2-11 by mouth Colleg e 2.5 MG 00:00: two times of capsule 00 daily. Medicin e Glucose 2018-10 Yes Check [facility] Blood 2-04 glucose 5x College Strips 00:00: daily; Dx of (CONTOUR 00 E84.9 Medicin NEXT TEST) e Glucose 2018-10 Yes Check [facility] Blood 2-04 glucose 5x College Strips 00:00: daily; Dx of (CONTOUR 00 E84.9 Medicin NEXT TEST) e DULoxetine 2018-10 Yes 30mg QD Take [address] (CYMBALTA) 2-02 by mouth [facility] 30 MG 00:00: daily. Medical capsule 00 Center DULoxetine 2018-10 Yes 30mg QD Take [address] (CYMBALTA) 2-02 by mouth [facility] 30 MG 00:00: daily. Medical capsule 00 [place] DULoxetine 2018-10 Yes 30mg QD Take [address] (CYMBALTA) 2-02 by mouth [facility] 30 MG 00:00: daily. Medical capsule 00 [place] DULoxetine 2018-10 Yes 30mg QD Take [address] (CYMBALTA) 2-02 by mouth [facility] 30 MG 00:00: daily. Medical capsule 00 [facility] 2018-10 Yes 30mg Take 1 Cap [facility] (CYMBALTA) 2-02 by mouth Colle ge 30 MG 00:00: daily. of capsule 00 Medicin e Cholecalcif 2018-10 Yes 2000U Take 2,000 [facility] teja, 1-27 Units by ity of Vitamin D3, 12:39: mouth. Leandroa s (VITAMIN 02 Medical D3) 2,000 Branch unit tablet ergocalcife 2018-10 Yes [id number] Take [facility] ers rol, 11-20 50,000 ity of vitamin d2, 12:39: Units [place] (CALCIFEROL 02 mouth. Medica l ) 50,000 Branch unit capsule Cholecalcif 2018-10 Yes 2000U Take 2,000 [facility] teja, 1-27 Units by ity of Vitamin D3, 12:39: mouth. Leandora s (VITAMIN 02 Medical D3) 2,000 Branch unit tablet ergocalcife 2018-10 Yes [id number] Take [facility] ers rol, 11-20 50,000 ity of vitamin d2, 12:39: Units [place] (CALCIFEROL 02 mouth. Medica l ) 50,000 Branch unit capsule Cholecalcif 2018-10 Yes 2000U Take 2,000 [facility] teja, 1-27 Units by ity of Vitamin D3, 12:39: mouth. [place]andro[place] s (VITAMIN 02 Medical D3) 2,000 Branch unit tablet ergocalcife 2018-10 Yes [id number] Take [facility] ers rol, 11-20 50,000 ity of vitamin d2, 12:39: Units [place] (CALCIFEROL 02 mouth. Medica l ) 50,000 Branch unit capsule Cholecalcif 2018-10 Yes 2000U Take 2,000 [facility], 1-27 Units by ity of Vitamin D3, 12:39: [place]. [place] (VITAMIN 02 Medical D3) 2,000 Branch unit tablet ergocalcife 2019- Yes [id number] Take [facility] ers rol, 11-20 50,000 ity of vitamin d2, 12:39: Units [place] (CALCIFEROL 02 mouth. Medica l ) 50,000 Branch unit capsule Cholecalcif 2019- Yes 2000U Take 2,000 [facility], 1-27 Units by ity of Vitamin D3, 12:39: mouth. [place] s (VITAMIN 02 Medical D3) 2,000 Branch unit tablet ergocalcife 2019- Yes [id number] Take [facility] ers rol, 11-20 50,000 ity of vitamin d2, 12:39: Units [place] (CALCIFEROL 02 mouth. Medica l ) 50,000 Branch unit capsule Cholecalcif 2019- Yes 2000U Take 2,000 [facility] te[facility], 1-27 Units by ity of Vitamin D3, 12:39: mouth. [place] (VITAMIN 02 Medical D3) 2,000 Branch unit tablet ergocalcife 2019- Yes [id number] Take [facility] rol, 11-20 50,000 ity of vitamin d2, 12:39: Units by [place] (CALCIFEROL 02 mouth. Medica l ) 50,000 Branch unit capsule Cholecalcif 2019- Yes 2000U Take 2,000 [facility] teja, 1-27 Units by ity of Vitamin D3, 12:39: mouth. [place] gilbert (VITAMIN 02 Medical D3) 2,000 Branch unit tablet ergocalcife 2019- Yes [id number] Take [facility] rol, 11-20 50,000 ity of vitamin d2, 12:39: Units [place] (CALCIFEROL 02 mouth. Medica l ) 50,000 Branch unit capsule Cholecalcif 2019- Yes 2000U Take 2,000 [facility] teja, 1-27 Units by ity of Vitamin D3, 12:39: mouth. [place] (VITAMIN 02 Medical D3) 2,000 Branch unit tablet ergocalcife 2019- Yes [id number] Take [facility] ers rol, 11-20 50,000 ity of vitamin d2, 12:39: Units [place] (CALCIFEROL 02 mouth. Medica l ) 50,000 Branch unit capsule Cholecalcif 2019- Yes 2000U Take 2,000 [facility], 1-27 Units by ity of Vitamin D3, 12:39: [place]. [place] (VITAMIN 02 Medical D3) 2,000 Branch unit tablet ergocalcife 2018-10 Yes [id number] Take [facility] ers rol, 11-20 50,000 ity of vitamin d2, 12:39: Units by [place] (CALCIFEROL 02 mouth. Medica l ) 50,000 Branch unit capsule Cholecalcif 2018-10 Yes 2000U Take 2,000 [facility], 27 Units by ity of Vitamin D3, 12:39: mouth. [place]andro[place] s (VITAMIN 02 Medical D3) 2,000 Branch unit tablet ergocalcife 2018-10 Yes [id number] Take [facility] ers rol, 11-20 50,000 ity of vitamin d2, 12:39: Units by [place] (CALCIFEROL 02 mouth. Medica l ) 50,000 Branch unit capsule Cholecalcif 2018-10 Yes 2000U Take 2,000 [facility] te[facility], 27 Units by ity of Vitamin D3, 12:39: mouth. [place] (VITAMIN 02 Medical D3) 2,000 Branch unit tablet ergocalcife 2018-10 Yes [id number] Take [facility] ers rol, 11-20 50,000 ity of vitamin d2, 12:39: Units [place] (CALCIFEROL 02 mouth. Medica l ) 50,000 Branch unit capsule azithromyci 2018-10 Yes 500mg Take [address] n 1-22 mg by [facility] (ZITHROMAX) 00:00: mouth as Me dical 500 MG 00 directed Center tablet MON/WED/FR I. azithromyci 2018-10 Yes 500mg Take [address] n 1-22 mg by [facility] (ZITHROMAX) 00:00: mouth as Me dical 500 MG 00 directed Center tablet MON/WED/FR I. azithromyci 2018-10 Yes 500mg Take [address] n 1-22 mg by [facility] (ZITHROMAX) 00:00: mouth as Me dical 500 MG 00 directed Center tablet MON/WED/FR I. azithromyci 2018-10 Yes 500mg Take [address] n 1-22 mg by [facility] (ZITHROMAX) 00:00: mouth as Me dical 500 MG 00 directed Center tablet MON/WED/FR I. omeprazole 2018-10 Yes 20mg QD Take [address] (PRILOSEC) 1-20 by mouth [facility] 20 MG 00:00: daily . Medical capsule 00 [place] omeprazole 2018-10 Yes 20mg QD Take [address] (PRILOSEC) 1-20 by mouth [facility] 20 MG 00:00: daily . Medical capsule 00 [place] omeprazole 2018-10 Yes 20mg QD Take [address] (PRILOSEC) 1-20 by mouth [facility] 20 MG 00:00: daily . Medical capsule 00 [place] omeprazole 2018-10 Yes 20mg QD Take [address] (PRILOSEC) 1-20 by mouth [facility] 20 MG 00:00: daily . Medical capsule 00 [place] sulfamethox 2018-10 Yes 1{tbl} Take [address] azole-trime 1-19 tablet by Jocelyn es thoprim 00:00: mouth as Medica l (BACTRIM 00 directed [facility]) 800-160 MON/WED/FR mg per I. tablet sulfamethox 2018-10 Yes 1{tbl} Take [address] azole-trime 1-19 tablet by Jocelyn es thoprim 00:00: mouth as Medica l (BACTRIM 00 directed [facility]) 800-160 MON/WED/FR mg per I. tablet sulfamethox 2018-10 Yes 1{tbl} Take [address] azole-trime 1-19 tablet by Jocelyn es thoprim 00:00: mouth as Medica l (BACTRIM 00 directed [facility]) 800-160 MON/WED/FR mg per I. tablet sulfamethox 2018-10 Yes 1{tbl} Take [address] azole-trime 1-19 tablet by Jocelyn es thoprim 00:00: mouth as Medica l (BACTRIM 00 directed [facility]) 800-160 MON/WED/FR mg per I. tablet insulin 2018-10 Yes USE 60 [facility] lispro 1-18 UNITS PER College (HUMALOG) 00:00: DAY VIA of 100 UNIT/ML 00 INSULIN Medic in injection PUMP e predniSONE 2018-10 Yes Take ([address] [facility] (DELTASONE) 1-15 tabs ) 20 Jocelyn es 10 MG 00:00: mg for 7 Medical tablet 00 days , Center then (1.5 tab) 15 mg for 7 days, then continue 10 mg ( 1 tab) daily. predniSONE 2018-10 Yes Take ([address] [facility] (DELTASONE) 1-15 tabs ) 20 Jocelyn es 10 MG 00:00: mg for 7 Medical tablet 00 days , Center then (1.5 tab) 15 mg for 7 days, then continue 10 mg ( 1 tab) daily. predniSONE 2018-10 Yes Take ([address] [facility] (DELTASONE) 1-15 tabs ) 20 Jocelyn es 10 MG 00:00: mg for 7 Medical tablet 00 days , Center then (1.5 tab) 15 mg for 7 days, then continue 10 mg ( 1 tab) daily. predniSONE 2018-10 Yes Take ([address] [facility] (DELTASONE) 1-15 tabs ) 20 Jocelyn es 10 MG 00:00: mg for 7 Medical tablet 00 days , Center then (1.5 tab) 15 mg for 7 days, then continue 10 mg ( 1 tab) daily. mirtazapine 2018-10 Yes [id number] 7.5mg Take 7.5 Jayesh (REMERON) 1-05 mg by [place] 7.5 MG 19:26: mouth of tablet 17 nightly. Medicin e diltiazem 2018-10 Yes 1{tbl} Take 1 Tab [facility] 120 MG TABS 1-05 by mouth [facility] 19:26: two times of 17 daily. Medicin e lisinopril 2018-10 Yes 10mg QD Take [address] (PRINIVIL,Z 1-02 by mouth Luke s ESTRIL) 10 00:00: daily. Medic al MG tablet 00 [place] lisinopril 2018-10 Yes 10mg QD Take [address] (PRINIVIL,Z 1-02 by mouth Luke s ESTRIL) 10 00:00: daily. Medic al MG tablet 00 [place] lisinopril 2018-10 Yes 10mg QD Take [address] (PRINIVIL,Z 1-02 by mouth Luke s ESTRIL) 10 00:00: daily. Medic al MG tablet 00 [place] lisinopril 2018-10 Yes 10mg QD Take [address] (PRINIVIL,Z 1-02 by mouth Luke s ESTRIL) 10 00:00: daily. Medic al MG tablet 00 [place] benzonatate 2018-10 Yes TK [address] [facility] (TESSALON) 0-30 TID FOR 10 Jocelyn es 100 MG 00:00: DAYS Medical capsule 00 [place] benzonatate 2018-10 Yes TK [address] [facility] (TESSALON) 0-30 TID FOR 10 Jocelyn es 100 MG 00:00: DAYS Medical capsule 00 [place] benzonatate 2018-10 Yes TK [address] [facility] (TESSALON) 0-30 TID FOR 10 Jocelyn es 100 MG 00:00: DAYS Medical capsule 00 [place] benzonatate 2018-10 Yes TK [address] [facility] (TESSALON) 0-30 TID FOR 10 Jocelyn es 100 MG 00:00: DAYS Medical capsule 00 [place] diltiazem 2018-10 Yes 1{tbl} Take 1 Tab Jayesh 120 MG TABS 0-23 by mouth [facility]o [facility] 17:58: two times of 52 daily. Medicin e diltiazem 2018-10 Yes 1{tbl} Take 1 Tab Jayesh 120 MG TABS 0-23 by mouth [facility] 17:58: two times of 52 daily. Medicin e carvedilol 2018-10 Yes 12.5mg Q.5D Take 12.[address] [facility] (COREG) 0-22 mg by [facility] 12.5 MG 00:00: mouth 2 Medical tablet 00 (two) Center times daily. carvedilol 2018-10 Yes 12.5mg Q.5D Take 12.[address] [facility] (COREG) 0-22 mg by [facility] 12.5 MG 00:00: mouth 2 Medical tablet 00 (two) Center times daily. carvedilol 2018-10 Yes 12.5mg Q.5D Take 12.[address] [facility] [facility] (COREG) 0-22 mg by [facility] 12.5 MG 00:00: mouth 2 Medical tablet 00 (two) Center times daily. carvedilol 2018-10 Yes 12.5mg Q.5D Take 12.[address] [facility] (COREG) 0-22 mg by [facility] 12.5 MG 00:00: mouth 2 Medical tablet 00 (two) Center times daily. albuterol 2018-10 Yes USE 1 [facility] (PROVENTIL) 0-14 [place] (2.5 mg/3 00:00: NEBULIZER of mL) 0.083% 00 THREE Medicin nebulizer TIMES e solution DAILY NEEDED FOR SHORTNESS OF BREATH albuterol 2018-10 Yes USE 1 [facility]IAL [facility] (PROVENTIL) 0-14 [place] [place] (2.5 mg/3 00:00: NEBULIZER of mL) 0.083% 00 THREE Medicin nebulizer TIMES e solution DAILY NEEDED FOR SHORTNESS OF BREATH albuterol 2018-10 Yes USE 1 VIAL [facility] (PROVENTIL) 0-14 [address] [place] (2.5 mg/3 00:00: NEBULIZER of mL) 0.083% 00 THREE Medicin nebulizer TIMES e solution DAILY NEEDED FOR SHORTNESS OF BREATH mirtazapine 2018-10 Yes [id number] 7.5mg Take 7.5 Jayesh (REMERON) 0-09 mg by College 7.5 MG 19:52: mouth of tablet 28 nightly. Medicin e diltiazem 2018-10 Yes 1{tbl} Take 1 Tab [facility] 120 MG TABS 0-09 by mouth [facility] 19:52: two times of 28 daily. Medicin e mirtazapine 2018-10 Yes [id number] 7.5mg Take 7.5 [facility] (REMERON) 0-09 mg by [place] 7.5 MG 19:52: mouth of tablet 28 nightly. Medicin e mirtazapine 2018-10 Yes [id number] 7.5mg Take 7.5 Jayesh (REMERON) 0-09 mg by [place] 7.5 MG 19:52: mouth of tablet 28 nightly. Medicin e dronabinol 2018-10 Yes [id number] 2.5mg Take 1 Cap [facility] (MARINOL) 0-09 by mouth Colleg e 2.5 MG 00:00: two times of capsule 00 daily. Medicin e dronabinol 2018-10 Yes [id number] 2.5mg Take 1 Cap [facility] (MARINOL) 0-09 by mouth Colleg e 2.5 MG 00:00: two times of capsule 00 daily. Medicin e Continuous 2018-10 Yes 1{each} 1 [facility] Blood Gluc 0-09 every 14 Colle ge Sensor 00:00: days. of (FREESTYLE 00 Medicin RENNY 14 e DAY SENSOR) MISC dronabinol 2018-10 Yes [id number] 2.5mg Take 1 Cap Jayesh (MARINOL) 0-09 by mouth Colleg e 2.5 MG 00:00: two times of capsule 00 daily. Medicin e Continuous 2018-10 Yes 1{each} 1 [facility] Blood Gluc 0-09 every 14 Colle ge Sensor 00:00: days. of (FREESTYLE 00 Medicin RENNY 14 e DAY SENSOR) [employer] dronabinol 2018-10 Yes [id number] 2.5mg Take 1 Cap [facility] (MARINOL) 0-09 by mouth Colleg e 2.5 MG 00:00: two times of capsule 00 daily. Medicin e Continuous 2018-10 Yes 1{each} 1 [facility] Blood Gluc 0-09 every 14 Colle ge Sensor 00:00: days. of (FREESTYLE 00 Medicin RENNY 14 e DAY SENSOR) [employer] Continuous 2018-10 Yes 1{each} 1 [facility] Blood Gluc 0-09 every 14 Colle ge Sensor 00:00: days. of (FREESTYLE 00 Medicin RENNY 14 e DAY SENSOR) [employer] Continuous 2018-10 Yes 1{each} 1 [facility] Blood Gluc 0-09 every 14 Colle ge Sensor 00:00: days. of (FREESTYLE 00 Medicin RENNY 14 e DAY SENSOR) [employer] Continuous 2018-10 Yes 1{each} 1 [facility] Blood Gluc 0-09 every 14 Colle ge Sensor 00:00: days. of (FREESTYLE 00 Medicin RENNY 14 e DAY SENSOR) [employer] Continuous 2018-10 Yes 1{each} 1 [facility] Blood Gluc 0-09 every 14 Colle ge Sensor 00:00: days. of (FREESTYLE 00 Medicin RENNY 14 e DAY SENSOR) [employer] Continuous 2018-10 Yes 1{each} 1 [facility] Blood Gluc 0-09 every 14 Colle ge Sensor 00:00: days. of (FREESTYLE 00 Medicin RENNY 14 e DAY SENSOR) [employer] levalbutero 2018-10 Yes [id number] Inhale 2 [facility] l tartrate 0-08 puffs in Colle ge (XOPENEX 00:00: am and pm. of HFA) 45 00 May take Medicin MCG/ACT an e AERO additional inhaler 2 puffs throughout day if needed. Cholecalcif 2018-10 Yes [id number] 1{capsu Take 1 Jayesh teja 2000 0-08 le} capsule by [facility] units TABS 00:00: mouth of 00 daily. Medicin e fluticasone 2018-10 Yes [id number] 2{spray 2 Sprays Jayesh (FLONASE) 0-08 } by Each [facility] 50 MCG/ACT 00:00: Nostril of nasal spray 00 route Medicin daily. e Glucagon, 2018-10 Yes [id number] 1{appli Inject 1 [facility] rDNA, 0-08 cator} [facility] [employer] (GLUCAGON 00:00: as of EMERGENCY) 00 directed Medic in 1 MG KIT as needed. e levalbutero 2018-10 Yes [id number] Inhale 2 [facility] l tartrate 0-08 puffs in Colle ge (XOPENEX 00:00: am and pm. of HFA) 45 00 May take Medicin MCG/ACT an e AERO additional inhaler 2 puffs throughout day if needed. Cholecalcif 2018-10 Yes [id number] 1{capsu Take 1 Jayesh teja 2000 0-08 le} capsule by [facility] units TABS 00:00: mouth of 00 daily. Medicin e fluticasone 2018-10 Yes [id number] 2{spray 2 Sprays Jayesh (FLONASE) 0-08 } by Each [place] 50 MCG/ACT 00:00: Nostril of nasal spray 00 route Medicin daily. e Glucagon, 2018-10 Yes [id number] 1{appli Inject 1 [facility] rDNA, 0-08 cator} [employer] (GLUCAGON 00:00: as of EMERGENCY) 00 directed Medic in 1 MG KIT as needed. e levalbutero 2018-10 Yes [id number] Inhale 2 Jayesh l tartrate 0-08 puffs in Colle ge (XOPENEX 00:00: am and pm. of HFA) 45 00 May take Medicin MCG/ACT an e AERO additional inhaler 2 puffs throughout day if needed. Cholecalcif 2018-10 Yes [id number] 1{capsu Take 1 [facility] teja 2000 0-08 le} capsule by [place] [place] units TABS 00:00: mouth of 00 daily. Medicin e fluticasone 2018-10 Yes [id number] 2{spray 2 Sprays Jayesh (FLONASE) 0-08 } by Each [facility] 50 MCG/ACT 00:00: Nostril of nasal spray 00 route Medicin daily. e Glucagon, 2018-10 Yes [id number] 1{appli Inject 1 [facility] rDNA, 0-08 cator} [employer] (GLUCAGON 00:00: as of EMERGENCY) 00 directed Medic in 1 MG KIT as needed. e levalbutero 2018-10 Yes [id number] Inhale 2 Jayesh l tartrate 0-08 puffs in Colle ge (XOPENEX 00:00: am and pm. of HFA) 45 00 May take Medicin MCG/ACT an e AERO additional inhaler 2 puffs throughout day if needed. Cholecalcif 2018-10 Yes [id number] 1{capsu Take 1 [facility] teja 2000 0-08 le} capsule by [facility] units TABS 00:00: mouth of 00 daily. Medicin e fluticasone 2018-10 Yes [id number] 2{spray 2 Sprays Jayesh (FLONASE) 0-08 } by Each [place] 50 MCG/ACT 00:00: Nostril of nasal spray 00 route Medicin daily. e Glucagon, 2018-10 Yes [id number] 1{appli Inject 1 [facility] rDNA, 0-08 cator} [employer] (GLUCAGON 00:00: as of EMERGENCY) 00 directed Medic in 1 MG KIT as needed. e levalbutero 2018-10 Yes [id number] Inhale 2 Jayesh l tartrate 0-08 puffs in Colle ge (XOPENEX 00:00: am and pm. of HFA) 45 00 May take Medicin MCG/ACT an e AERO additional inhaler 2 puffs throughout day if needed. Cholecalcif 2018-10 Yes [id number] 1{capsu Take 1 [facility] teja 2000 0-08 le} capsule by [facility] ege units TABS 00:00: mouth of 00 daily. Medicin e fluticasone 2018-10 Yes [id number] 2{spray 2 Sprays [facility] (FLONASE) 0-08 } by Each [facility] 50 MCG/ACT 00:00: Nostril of nasal spray 00 route Medicin daily. e Glucagon, 2018-10 Yes [id number] 1{appli Inject 1 Jayesh rDNA, 0-08 cator} [employer] (GLUCAGON 00:00: as of EMERGENCY) 00 directed Medic in 1 MG KIT as needed. e Cholecalcif 2018-10 Yes [id number] Take 1 Jayesh teja 2000 0-08 capsule by [facility] units TABS 00:00: mouth of 00 daily. Medicin e Glucagon, 2018-10 Yes [id number] 1{appli Inject 1 Jayesh rDNA, 0-08 cator} Applicator Yonatan jeff (GLUCAGON 00:00: as of EMERGENCY) 00 directed Medic in 1 MG KIT as needed. e Cholecalcif 2018-10 Yes [id number] Take 1 [facility] teja 2000 0-08 capsule by Cheo [facility]ge units TABS 00:00: mouth of 00 daily. Medicin e Cholecalcif 2018-10 Yes [id number] Take 1 Jayesh teja 2000 0-08 capsule by [facility] units TABS 00:00: mouth of 00 daily. Medicin e Cholecalcif 2018-10 Yes [id number] Take 1 [facility] teja 2000 0-08 capsule by [facility] units TABS 00:00: mouth of 00 daily. Medicin e Cholecalcif 2018-10 Yes [id number] Take 1 Jayesh teja 2000 0-08 capsule by [facility] units TABS 00:00: mouth of 00 daily. Medicin e mirtazapine Yes [id number] 7.5mg Take 7.5 [facility] (REMERON) 9-30 mg by [place] 7.5 MG 14:32: mouth of tablet 43 nightly. Medicin e diltiazem 2018- Yes 1{tbl} Take 1 Tab Jayesh 120 MG TABS 9-30 by mouth [facility]o [facility]ge 14:32: two times of 43 daily. Medicin e azithromyci Yes [id number] 500mg Take 1 Tab [facility] n 9-25 by mouth [place] (ZITHROMAX) 00:00: every of 500 MG Wednesday, Medicin tablet Wednesday, e Wednesday. ORKAMBI Yes [id number] TAKE 2 [place] 200-125 MG 9-25 TABLETS BY Col lege TABS 00:00: MOUTH of 00 TWICE Medicin DAILY e EVERY 12 HOURS WITH FAT-CONTAI THOMAS FOOD azithromyci Yes [id number] 500mg Take 1 Tab Jayesh n 9-25 by mouth [place] (ZITHROMAX) 00:00: every of 500 MG Wednesday, Medicin tablet Wednesday, e Wednesday. ORKAMBI 2019-0 Yes [id number] TAKE 2 [place] 200-125 MG 9-25 TABLETS BY [facility] TABS 00:00: MOUTH of 00 TWICE Medicin DAILY e EVERY 12 HOURS WITH FAT-CONTAI THOMAS FOOD azithromyci 2019-0 Yes [id number] 500mg Take 1 Tab [facility] n 9-25 by mouth College (ZITHROMAX) 00:00: every of 500 MG 00 Wednesday, Medicin tablet Wednesday, e Wednesday. ORKAMBI 2019-0 Yes [id number] TAKE 2 [place] 200-125 MG 9-25 TABLETS BY [facility] TABS 00:00: MOUTH of 00 TWICE Medicin DAILY e EVERY 12 HOURS WITH FAT-CONTAI THOMAS FOOD azithromyci 2018-0 Yes [id number] 500mg Take 1 Tab [facility]esh n 9-25 by mouth College (ZITHROMAX) 00:00: every of 500 MG 00 Wednesday, Medicin tablet Wednesday, e Wednesday. ORKAMBI 2019-0 Yes [id number] TAKE 2 [place] 200-125 MG 9-25 TABLETS BY [facility] TABS 00:00: MOUTH of 00 TWICE Medicin DAILY e EVERY 12 HOURS WITH FAT-CONTAI THOMAS FOOD azithromyci 2018-0 Yes [id number] 500mg Take 1 Tab [facility] n 9-25 by mouth [facility] (ZITHROMAX) 00:00: every of 500 MG 00 Wednesday, Medicin tablet Wednesday, e Wednesday. ORKAMBI 2019-0 Yes [id number] TAKE 2 [place] 200-125 MG 9-25 TABLETS BY [facility] TABS 00:00: MOUTH of 00 TWICE Medicin DAILY e EVERY 12 HOURS WITH FAT-CONTAI THOMAS FOOD azithromyci 2018-0 Yes [id number] 500mg Take 1 Tab Jayesh n 9-25 by mouth [facility] (ZITHROMAX) 00:00: every of 500 MG 00 Wednesday, Medicin tablet Wednesday, e Wednesday. Nutritional 2019-0 2020- No [id number] 1{bottl Take 1 [facility] Supplements 9-25 03-24 e} Bottle by [employer] [facility] (GLUCERNA 00:00: 04:59 mouth two of SHAKE) LIQD 00 :00 times Medicin daily for e 180 days. Nutritional 2019-0 2020- No [id number] 1{bottl Take 1 [facility] Supplements 07-19-24 e} Bottle by [employer] [facility] (GLUCERNA 00:00: 04:59 mouth two of SHAKE) LIQD 00 :00 times Medicin daily for e 180 days. Nutritional 2018- 2020- No [id number] 1{bottl Take 1 Jayesh Supplements 07-19-24 e} Bottle by [employer] (GLUCERNA 00:00: 04:59 mouth two of SHAKE) LIQD 00 :00 times Medicin daily for e 180 days. Nutritional 2018- 2020- No [id number] 1{bottl Take 1 [facility] Supplements 07-19-24 e} Bottle by [employer] (GLUCERNA 00:00: 04:59 mouth two of SHAKE) LIQD 00 :00 times Medicin daily for e 180 days. Nutritional 2018- 2020- No [id number] 1{bottl Take 1 [facility] Supplements 07-19-24 e} Bottle by [employer] [facility] (GLUCERNA 00:00: 04:59 mouth two of SHAKE) LIQD 00 :00 times Medicin daily for e 180 days. Nutritional 2019- 2020- No [id number] 1{bottl Take 1 Jayesh Supplements 07-19-24 e} Bottle by [employer] [facility] (GLUCERNA 00:00: 04:59 mouth two of SHAKE) LIQD 00 :00 times Medicin daily for e 180 days. Nutritional 2019- 2020- No [id number] 1{bottl Take 1 [facility] Supplements 07-19-24 e} Bottle by [employer] [facility] (GLUCERNA 00:00: 04:59 mouth two of SHAKE) LIQD 00 :00 times Medicin daily for e 180 days. mirtazapine 2019- Yes [id number] 7.5mg Take 7.5 [facility] (REMERON) 9-24 mg by College 7.5 MG 18:38: mouth of tablet 41 nightly. Medicin e diltiazem 2019-0 Yes 1{tbl} Take 1 Tab Jayesh 120 MG TABS 9-24 by mouth [facility] 18:38: two times of 41 daily. Medicin e Pancrelipas 2019- Yes [id number] TAKE 5 [facility] e, 9-24 CAPSULES College Lip-Prot-Am 00:00: BY MOUTH of yl, (CREON) 00 WITH Medicin [id number] MEALS, AND e units CPEP TAKE 2 [facility] BY MOUTH EVERY DAY WITH SNACKS Pancrelipas 2019-0 Yes [id number] TAKE 5 Jayesh e, 9-24 CAPSULES [employer] Lip-Prot-Am 00:00: BY MOUTH of yl, (CREON) 00 WITH Medicin [id number] MEALS, AND e units CPEP TAKE 2 [facility] BY MOUTH EVERY DAY WITH SNACKS Pancrelipas 2019-0 Yes [id number] TAKE 5 [facility] e, 9-24 CAPSULES [employer] Lip-Prot-Am 00:00: BY MOUTH of yl, (CREON) 00 WITH Medicin [id number] MEALS, AND e units CPEP TAKE 2 [place] BY MOUTH EVERY DAY WITH SNACKS Pancrelipas 2019-0 Yes [id number] TAKE 5 [facility]esh e, 9-24 CAPSULES [employer] Lip-Prot-Am 00:00: BY MOUTH of yl, (CREON) 00 WITH Medicin [id number] MEALS, AND e units CPEP TAKE 2 [facility] BY MOUTH EVERY DAY WITH SNACKS Pancrelipas 2019-0 Yes [id number] TAKE 5 [facility] e, 9-24 CAPSULES [employer] Lip-Prot-Am 00:00: BY MOUTH of yl, (CREON) 00 WITH Medicin [id number] MEALS, AND e units CPEP TAKE 2 [place] BY MOUTH EVERY DAY WITH SNACKS Pancrelipas 2019-0 Yes [id number] TAKE 5 [facility] e, 9-24 CAPSULES [employer] Lip-Prot-Am 00:00: BY MOUTH of yl, (CREON) 00 WITH Medicin [id number] MEALS, AND e units CPEP TAKE 2 [place] BY MOUTH EVERY DAY WITH SNACKS Pancrelipas 2019-0 Yes [id number] TAKE 5 Jayesh e, 9-24 CAPS[employer]ES [employer] Lip-Prot-Am 00:00: BY MOUTH of yl, (CREON) 00 WITH Medicin [id number] MEALS, AND e units CPEP TAKE 2 [facility] BY MOUTH EVERY DAY WITH SNACKS omeprazole 2019-0 Yes [id number] 20mg Take 1 Cap [facility] (PRILOSEC) 9-23 by mouth Colle ge 20 MG 00:00: two times of capsule 00 daily. Medicin e omeprazole 2019-0 Yes [id number] 20mg Take 1 Cap [facility] (PRILOSEC) 9-23 by mouth [facility]le [facility] 20 MG 00:00: two times of capsule 00 daily. Medicin e omeprazole 2018-0 Yes [id number] 20mg Take 1 Cap Jayesh (PRILOSEC) 9-23 by mouth [facility]le [employer] 20 MG 00:00: two times of capsule 00 daily. Medicin e omeprazole 2018-0 Yes [id number] 20mg Take 1 Cap [facility] (PRILOSEC) 9-23 by mouth [facility]le [employer] 20 MG 00:00: two times of capsule 00 daily. Medicin e omeprazole 2018-0 Yes [id number] 20mg Take 1 Cap [facility] (PRILOSEC) 9-23 by mouth [facility]le [employer] 20 MG 00:00: two times of capsule 00 daily. Medicin e omeprazole Yes [id number] 20mg Take 1 Cap [facility] (PRILOSEC) 9-23 by mouth [facility]le [facility] 20 MG 00:00: two times of capsule 00 daily. Medicin e esomeprazol 2019- No [id number] 40mg Take 1 Cap [facility] e (NEXIUM) 07-12 by mouth [facility] 40 MG 00:00: 00:00 daily. of capsule 00 :00 Medicin e guaiFENesin 2019- No [id number] Take 5 mls [facility] -Codeine 07-07 at night Colleg e (CHERATUSSI 00:00: 04:59 as needed of N AC) 00 :00 for cough. Medicin 100-10 e MG/5ML liquid predniSONE Yes [id number] 10mg Take 1 Tab Jayesh (DELTASONE) 9-04 by mouth [facility] 10 MG 00:00: daily. of tablet 00 Medicin e predniSONE Yes [id number] 10mg Take 1 Tab [facility] (DELTASONE) 9-04 by mouth [facility] 10 MG 00:00: daily. of tablet 00 Medicin e predniSONE 2018- Yes [id number] 10mg Take 1 Tab [facility] (DELTASONE) 9-04 by mouth [facility] 10 MG 00:00: daily. of tablet 00 Medicin e predniSONE Yes [id number] 10mg Take 1 Tab Jayesh (DELTASONE) 9-04 by mouth [facility] 10 MG 00:00: daily. of tablet 00 Medicin e predniSONE Yes [id number] 10mg Take 1 Tab [facility] (DELTASONE) 9-04 by mouth [facility] 10 MG 00:00: daily. of tablet 00 Medicin e predniSONE Yes [id number] 10mg Take 1 Tab [facility] (DELTASONE) 9-04 by mouth [facility] 10 MG 00:00: daily. of tablet 00 Medicin e albuterol Yes USE 1 [facility] (PROVENTIL) 06-20 VIA [employer] (2.5 mg/3 00:00: NEBULIZER of mL) 0.083% 00 THREE Medicin nebulizer TIMES e solution DAILY NEEDED FOR SHORTNESS OF BREATH albuterol Yes USE 1 VIAL [facility] (PROVENTIL) 8- VIA [place] (2.5 mg/3 00:00: NEBULIZER of mL) 0.083% 00 THREE Medicin nebulizer TIMES e solution DAILY NEEDED FOR SHORTNESS OF BREATH albuterol Yes USE 1 [facility] (PROVENTIL) 06-[address] [facility] [place] (2.5 mg/3 00:00: NEBULIZER of mL) 0.083% 00 THREE Medicin nebulizer TIMES e solution DAILY NEEDED FOR SHORTNESS OF BREATH lidocaine 2018- Yes [id number] 1{patch Place 1 Jayesh (LIDODERM) 8-21 } Patch onto [facility] 5 % patch 00:00: the skin of 00 every 24 Medicin hours. e lidocaine Yes [id number] 1{patch Place 1 [facility] (LIDODERM) 8-21 } Patch onto [facility] 5 % patch 00:00: the skin of 00 every 24 Medicin hours. e lidocaine Yes [id number] 1{patch Place 1 [facility] (LIDODERM) 8-21 } Patch onto [facility] 5 % patch 00:00: the skin of 00 every 24 Medicin hours. e mupirocin Yes Cystic 1{appli Apply [address] [facility] (BACTROBAN) 8-15 fibrosis cation} [facility] % 00:00: ([facility]) n Medical ointment 00 topically Center 2 (two) times daily as needed. mupirocin Yes Cystic 1{appli Apply [address] [facility] (BACTROBAN) 8-15 fibrosis cation} applicatio [facility] 2 % 00:00: ([facility]) n Medical ointment 00 topically Center 2 (two) times daily as needed. mupirocin Yes Cystic 1{appli Apply [address] [facility] (BACTROBAN) 8-15 fibrosis cation} applicatio [facility] 2 % 00:00: ([facility]) n Medical ointment 00 topically Center 2 (two) times daily as needed. mupirocin Yes Cystic 1{appli Apply [address] [facility] (BACTROBAN) 8-15 fibrosis cation} applicatio [facility] 2 % 00:00: ([facility]) n Medical ointment 00 topically Center 2 (two) times daily as needed. sertraline Yes Cystic 25mg QD Take [address] [facility] (ZOLOFT) 25 8-13 fibrosis by mouth [facility] MG tablet 00:00: ([facility]) daily. Medic al [place] sertraline Yes Cystic 25mg QD Take [address] [facility] (ZOLOFT) 25 8-13 fibrosis by mouth [facility] MG tablet 00:00: ([facility]) daily. Medic al [place] sertraline Yes Cystic 25mg QD Take [address] [facility] (ZOLOFT) 25 8-13 fibrosis by mouth [facility] MG tablet 00:00: ([facility]) daily. Medic al [place] sertraline Yes Cystic 25mg QD Take [address] [facility] (ZOLOFT) 25 8-13 fibrosis by mouth [facility] MG tablet 00:00: ([facility]) daily. Medic al [place] sertraline Yes [id number] 25mg Take 1 Tab [facility]esh (ZOLOFT) 25 8-13 by mouth [facility] MG tablet 00:00: daily. of Medicin e sertraline Yes [id number] 25mg Take 1 Tab Jayesh (ZOLOFT) 25 8-13 by mouth [facility] MG tablet 00:00: daily. of Medicin e sertraline Yes [id number] 25mg Take 1 Tab [facility] (ZOLOFT) 25 8-13 by mouth [facility] MG tablet 00:00: daily. of Medicin e sertraline Yes [id number] 25mg Take 1 Tab Jayesh (ZOLOFT) 25 8-13 by mouth [facility] MG tablet 00:00: daily. of Medicin e sertraline Yes [id number] 25mg Take 1 Tab Jayesh (ZOLOFT) 25 8-13 by mouth [facility] MG tablet 00:00: daily. of Medicin e sertraline Yes [id number] 25mg Take 1 Tab [facility] (ZOLOFT) 25 8-13 by mouth [facility] MG tablet 00:00: daily. 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 dornase Yes [id number] 2.5mg Take 1 [place] alpha 8-12 Ampule by [employer] (PULMOZYME) 00:00: nebulizati of 1 MG/ML 00 on two Medicin nebulizer times e solution daily. Cholecalcif Yes [id number] 1{capsu Take 1 Jayesh teja 2000 8-12 le} capsule by [facility] units TABS 00:00: mouth of 00 daily. Medicin e dornase Yes [id number] 2.5mg Take 1 [place] alpha 8-12 Ampule by [place] (PULMOZYME) 00:00: nebulizati of 1 MG/ML 00 on two Medicin nebulizer times e solution daily. Cholecalcif 2018- Yes [id number] 1{capsu Take 1 [facility] teja 2000 8-12 le} capsule by [facility] units TABS 00:00: mouth of 00 daily. Medicin e dornase 2018- Yes [id number] 2.5mg Take 1 [place] alpha 8-12 Ampule by [place] (PULMOZYME) 00:00: nebulizati of 1 MG/ML 00 on two Medicin nebulizer times e solution daily. dornase 2018- Yes [id number] 2.5mg Take 1 [place] alpha 8-12 Ampule by [place] (PULMOZYME) 00:00: nebulizati of 1 MG/ML 00 on two Medicin nebulizer times e solution daily. dornase 2018- Yes [id number] 2.5mg Take 1 [place] alpha 8-12 Ampule by [place] (PULMOZYME) 00:00: nebulizati of 1 MG/ML 00 on two Medicin nebulizer times e solution daily. dornase Yes [id number] 2.5mg Take 1 [place] alpha 8-12 Ampule by [place] (PULMOZYME) 00:00: nebulizati of 1 MG/ML 00 on two Medicin nebulizer times e solution daily. dronabinol Yes Cystic 2.5mg Q.5D Take 2.[address] [facility] (MARINOL) 8-09 fibrosis mg by [facility] 2.5 MG 00:00: ([facility]) mouth 2 Medical capsule 00 (two) Center times daily. dronabinol Yes Cystic 2.5mg Q.5D Take 2.[address] [facility] (MARINOL) 8-09 fibrosis mg by [facility] 2.5 MG 00:00: (HCC) mouth 2 Medical capsule 00 (two) Center times daily. dronabinol Yes Cystic 2.5mg Q.5D Take 2.[address] [facility] (MARINOL) 8-09 fibrosis mg by [facility] 2.5 MG 00:00: (HCC) mouth 2 Medical capsule 00 (two) Center times daily. dronabinol Yes Cystic 2.5mg Q.5D Take 2.[address] [facility] (MARINOL) 8-09 fibrosis mg by [facility] 2.5 MG 00:00: (HCC) mouth 2 Medical capsule 00 (two) Center times daily. dronabinol 2019 Yes [id number] 2.5mg Take 1 Cap [facility] (MARINOL) 8-09 by mouth Colleg e 2.5 MG 00:00: two times of capsule 00 daily. Medicin e dronabinol Yes [id number] 2.5mg Take 1 Cap [facility] (MARINOL) 8-09 by mouth Colleg e 2.5 MG 00:00: two times of capsule 00 daily. Medicin e mirtazapine Yes [id number] 7.5mg Take 7.5 [facility] (REMERON) 7-26 mg by College 7.5 MG 16:17: mouth of tablet 13 nightly. Medicin e sertraline Yes 25mg Take 25 mg [facility] (ZOLOFT) 25 7-26 by mouth [facility] MG tablet 16:17: daily. of 13 Medicin e diltiazem Yes 1{tbl} Take 1 Tab Jayesh 120 MG TABS 7-26 by mouth [facility] 16:17: daily. of 13 Medicin e Lumacaftor- Yes [id number] 2{capsu Take 2 [facility] Ivacaftor 7- le} Caps by [place] ([facility]) 00:00: mouth of 200-125 MG 00 every 12 Medic in TABS hours. e Lumacaftor- 2019- No [id number] 2{capsu Take 2 Jayesh Ivacaftor 7-22 09-23 le} Caps by Colle e ([facility]) 00:00: 00:00 mouth of 200-125 MG 00 :00 every 12 Medic in TABS hours. e albuterol Yes USE 1 VIAL [facility] (PROVENTIL) 7-18 [address] [place] (2.5 mg/3 00:00: NEBULIZER of mL) 0.083% 00 THREE Medicin nebulizer TIMES e solution DAILY NEEDED FOR SHORTNESS OF BREATH nortriptyli Yes 20mg Take 2 [facility] [place] 7-16 Caps by [place] (PAMELOR) 00:00: mouth of 10 MG 00 nightly. Medicin capsule e nortriptyli Yes 20mg Take 2 [facility] 7-16 Caps by [place] (PAMELOR) 00:00: mouth of 10 MG 00 nightly. Medicin capsule e nortriptyli 2019-0 Yes 20mg Take 2 [facility] 7-16 Caps by [place] ([facility]) 00:00: mouth of 10 MG 00 nightly. Medicin capsule e nortriptyli 2019-0 Yes 20mg Take 2 [facility] 7-16 Caps by [place] ([facility]) 00:00: mouth of 10 MG 00 nightly. Medicin capsule e nortriptyli 2019-0 Yes 20mg Take 2 [facility] ne 7-16 Caps by [place] ([facility]) 00:00: mouth of 10 MG 00 nightly. Medicin capsule e nortriptyli 2018-0 2019- No 20mg Take 2 [place] ne 7-16 10-31 Caps by [place] ([facility]) 00:00: 00:00 mouth of 10 MG 00 :00 nightly. Medicin capsule e tramadol Yes [id number] 50mg Take 1 Tab Jayesh (ULTRAM) 50 7-15 by mouth [facility] MG tablet 00:00: Every 6 of 00 hours. Medicin e ondansetron 2018- Yes [id number] 4mg Take 1 Tab [facility]esh (ZOFRAN) 4 7-15 by mouth Colle [facility] MG tablet 00:00: every 8 of 00 hours as Medicin needed for e Nausea. cetirizine, 2018- Yes [id number] 10mg Take 1 Tab Jayesh ZYRTEC, 7-15 by mouth [place] (ZYRTEC 00:00: daily. of ALLERGY) 10 00 Medicin MG tablet e tramadol 2018- Yes [id number] 50mg Take 1 Tab Jayesh (ULTRAM) 50 7-15 by mouth [facility] MG tablet 00:00: Every 6 of 00 hours. Medicin e ondansetron 2018- Yes [id number] 4mg Take 1 Tab [facility] (ZOFRAN) 4 7-15 by mouth Colle ge MG tablet 00:00: every 8 of 00 hours as Medicin needed for e Nausea. cetirizine, 2018- Yes [id number] 10mg Take 1 Tab [facility] ZYRTEC, 7-15 by mouth [place] (ZYRTEC 00:00: daily. of ALLERGY) 10 00 Medicin MG tablet e tramadol Yes [id number] 50mg Take 1 Tab [facility]esh (ULTRAM) 50 7-15 by mouth [facility] MG tablet 00:00: Every 6 of 00 hours. Medicin e ondansetron Yes [id number] 4mg Take 1 Tab [facility] (ZOFRAN) 4 7-15 by mouth Colle ge MG tablet 00:00: every 8 of 00 hours as Medicin needed for e Nausea. cetirizine, Yes [id number] 10mg Take 1 Tab Jayesh ZYRTEC, 7-15 by mouth College (ZYRTEC 00:00: daily. of ALLERGY) 10 00 Medicin MG tablet e tramadol Yes [id number] 50mg Take 1 Tab [facility] (ULTRAM) 50 7-15 by mouth [facility] MG tablet 00:00: Every 6 of 00 hours. Medicin e ondansetron Yes [id number] 4mg Take 1 Tab [facility]esh (ZOFRAN) 4 7-15 by mouth Colle ge MG tablet 00:00: every 8 of 00 hours as Medicin needed for e Nausea. cetirizine, Yes [id number] 10mg Take 1 Tab Jayesh ZYRTEC, 7-15 by mouth College (ZYRTEC 00:00: daily. of ALLERGY) 10 00 Medicin MG tablet e tramadol Yes [id number] 50mg Take 1 Tab Jayesh (ULTRAM) 50 7-15 by mouth [facility] MG tablet 00:00: Every 6 of 00 hours. Medicin e ondansetron Yes [id number] 4mg Take 1 Tab [facility] (ZOFRAN) 4 7-15 by mouth Colle ge MG tablet 00:00: every 8 of 00 hours as Medicin needed for e Nausea. cetirizine, Yes [id number] 10mg Take 1 Tab [facility] ZYRTEC, 7-15 by mouth College (ZYRTEC 00:00: daily. of ALLERGY) 10 00 Medicin MG tablet e tramadol 2018- Yes [id number] 50mg Take 1 Tab [facility]esh (ULTRAM) 50 7-15 by mouth [facility] MG tablet 00:00: Every 6 of 00 hours. Medicin e ondansetron 2018- Yes [id number] 4mg Take 1 Tab [facility]esh (ZOFRAN) 4 7-15 by mouth Colle ge MG tablet 00:00: every 8 of 00 hours as Medicin needed for e Nausea. Cholecalcif 2018- Yes [id number] 1{capsu Take 1 Jayesh teja 2000 7-15 le} capsule by [facility] units TABS 00:00: mouth of 00 daily. Medicin e tramadol Yes [id number] 50mg Take 1 Tab Jayesh (ULTRAM) 50 7-15 by mouth [facility] MG tablet 00:00: Every 6 of 00 hours. Medicin e ondansetron Yes [id number] 4mg Take 1 Tab [facility]esh (ZOFRAN) 4 7-15 by mouth Colle ge MG tablet 00:00: every 8 of 00 hours as Medicin needed for e Nausea. cetirizine, Yes [id number] 10mg Take 1 Tab [facility] ZYRTEC, 7-15 by mouth College (ZYRTEC 00:00: daily. of ALLERGY) 10 00 Medicin MG tablet e voriconazol Yes Cystic 1{tbl} QD Take [address] [facility] e (VFEND) 7-15 fibrosis tablet by [facility] 200 MG 00:00: ([facility]) mouth Medical tablet 00 daily. [place] tramadol Yes [id number] 50mg Take 1 Tab [facility] (ULTRAM) 50 7-15 by mouth [facility] MG tablet 00:00: Every 6 of 00 hours. Medicin e ondansetron Yes [id number] 4mg Take 1 Tab [facility]esh (ZOFRAN) 4 7-15 by mouth Colle ge MG tablet 00:00: every 8 of 00 hours as Medicin needed for e Nausea. cetirizine, Yes [id number] 10mg Take 1 Tab [facility] ZYRTEC, 7-15 by mouth College (ZYRTEC 00:00: daily. of ALLERGY) 10 00 Medicin MG tablet e voriconazol 2021- No Cystic 1{tbl} QD Take [address] [facility] e (VFEND) 7-15 08-19 fibrosis tablet by [facility] 200 MG 00:00: 00:00 (HCC) mouth Medical tablet 00 :00 daily. Center voriconazol 2021- No Cystic 1{tbl} QD Take [address] [facility] e (VFEND) 7-15 08-19 fibrosis tablet by [facility] 200 MG 00:00: 00:00 ([facility]) mouth Medical tablet 00 :00 daily. [place] voriconazol 2021- No Cystic 1{tbl} QD Take [address] [facility] e (VFEND) 15 08-19 fibrosis tablet by [facility] 200 MG 00:00: 00:00 ([facility]) mouth Medical tablet 00 :00 daily. [place] voriconazol 2019- No [id number] 200mg Take 1 Tab [facility] e (VFEND) 05-08-30 by mouth Colle ge 200 MG 00:00: 00:00 two times of tablet 00 :00 daily. Medicin e DAILY-SOFI Yes Cystic 1{tbl} QD Take [address] tablet 7-08 fibrosis tablet by Luke s 00:00: ([facility]) mouth Medical 00 daily. [place] DAILY-SOFI Yes Cystic 1{tbl} QD Take [address] tablet 7-08 fibrosis tablet by Luke s 00:00: ([facility]) mouth Medical 00 daily. [place] DAILY-SOFI Yes Cystic 1{tbl} QD Take [address] tablet 7-08 fibrosis tablet by Luke s 00:00: ([facility]) mouth Medical 00 daily. [place] DAILY-SOFI Yes Cystic 1{tbl} QD Take [address] tablet 7-08 fibrosis tablet by Luke s 00:00: ([facility]) mouth Medical 00 daily. [place] Nutritional 2020- No [id number] 1{bottl Take 1 Jayesh Supplements 04-28 01-02 e} Bottle by [facility] (GLUCERNA 00:00: 05:59 mouth 3 of SHAKE) LIQD 00 :00 times Medicin daily for e 180 days. Nutritional 2019- No [id number] 1{bottl Take 1 [facility] Supplements 7-05 09-25 e} Bottle by [facility] (GLUCERNA 00:00: 00:00 mouth 3 of SHAKE) LIQD 00 :00 times Medicin daily for e 180 days. pantoprazol Yes 40mg QD Take [address] [facility] e 7-03 tablet (40 [facility] (PROTONIX) 00:00: mg total) Me dical 40 MG 00 by mouth Center tablet daily. pantoprazol Yes 40mg QD Take [address] [facility] e 7-03 tablet (40 [facility] (PROTONIX) 00:00: mg total) Me dical 40 MG 00 by mouth Center tablet daily. pantoprazol Yes 40mg QD Take [address] [facility] e 7-03 tablet (40 [facility] (PROTONIX) 00:00: mg total) Me dical 40 MG 00 by mouth Center tablet daily. pantoprazol Yes 40mg QD Take [address] [facility] e 7-03 tablet (40 [facility] (PROTONIX) 00:00: mg total) Me dical 40 MG 00 by mouth Center tablet daily. Multiple Yes TAKE 1 [facility] Vitamins-Mi 6-27 CAPSULE BY [employer] [facility] n[employer] (MVW 00:00: MOUTH 2 of COMPLETE 00 TIMES Medicin FORMULATION DAILY WITH e D3000) CAPS MEALS FOR 180 DAYS Multiple Yes TAKE 1 Jayesh Vitamins-Mi 6-27 CAPSULE BY [employer] n[employer] (MVW 00:00: MOUTH 2 of COMPLETE 00 TIMES Medicin FORMULATION DAILY WITH e D3000) CAPS MEALS FOR 180 DAYS Multiple Yes TAKE 1 [facility] Vitamins-Mi 6-27 CAPSULE BY [employer] [facility] (MVW 00:00: MOUTH 2 of COMPLETE 00 TIMES Medicin FORMULATION DAILY WITH e D3000) CAPS MEALS FOR 180 DAYS Multiple Yes TAKE 1 [facility] Vitamins-Mi 6-27 CAPSULE BY [employer] [facility] (MVW 00:00: MOUTH 2 of COMPLETE 00 TIMES Medicin FORMULATION DAILY WITH e D3000) CAPS MEALS FOR 180 DAYS Multiple Yes TAKE 1 [facility] Vitamins-Mi 6-27 CAPSULE BY [employer] [facility] (MVW 00:00: MOUTH 2 of COMPLETE 00 TIMES Medicin FORMULATION DAILY WITH e D3000) CAPS MEALS FOR 180 DAYS Multiple Yes TAKE 1 [facility] Vitamins-Mi 6-27 CAPSULE BY [employer] [facility] (MVW 00:00: MOUTH 2 of COMPLETE 00 TIMES Medicin FORMULATION DAILY WITH e D3000) CAPS MEALS FOR 180 DAYS Multiple 2018- Yes TAKE 1 [facility] Vitamins-Mi 6-27 CAPSULE BY [facility] [facility] (MVW 00:00: MOUTH 2 of COMPLETE 00 TIMES Medicin FORMULATION DAILY WITH e D3000) CAPS MEALS FOR 180 DAYS Multiple 2018- Yes TAKE 1 Jayesh Vitamins-Mi 6-27 CAPSULE BY [facility] (MVW 00:00: MOUTH 2 of COMPLETE 00 TIMES Medicin FORMULATION DAILY WITH e D3000) CAPS MEALS FOR 180 DAYS pediatric Yes Cystic 1{capsu Q.5D Take [address] multivit 6-27 fibrosis le} capsule by L [facility] 61-D3-vit K 00:00: (HCC) mouth 2 Me dical (MVW 00 (two) Center COMPLETE times FORMULATION daily. D3000) 3,000-800 unit-mcg Cap pediatric Yes Cystic 1{capsu Q.5D Take [address] multivit 6-27 fibrosis le} capsule by L ukes 61-D3-vit K 00:00: (HCC) mouth 2 Me dical (MVW 00 (two) Center COMPLETE times FORMULATION daily. D3000) 3,000-800 unit-mcg Cap pediatric Yes Cystic 1{capsu Q.5D Take [address] multivit 6-27 fibrosis le} capsule by L [employer] 61-D3-vit K 00:00: ([facility]) mouth 2 Me dical (MVW 00 (two) Center COMPLETE times FORMULATION daily. D3000) 3,000-800 unit-mcg Cap pediatric Yes Cystic 1{capsu Q.5D Take [address] multivit 6-27 fibrosis le} capsule by L [employer] 61-D3-vit K 00:00: ([facility]) mouth 2 Me dical (MVW 00 (two) Center COMPLETE times FORMULATION daily. D3000) 3,000-800 unit-mcg Cap [employer] 300 Yes [id number] 1{ampul 1 Ampule Jayesh MG/4ML NEBU 6-26 e} by [place] 00:00: Inhalation of 00 route two Medicin times e daily. Alternate 28 days on and 28 days off. Brand name medically necessary. [employer] 300 Yes [id number] 1{ampul 1 Ampule [facility] MG/4ML NEBU 6-26 e} by [place] 00:00: Inhalation of 00 route two Medicin times e daily. Alternate 28 days on and 28 days off. Brand name medically necessary. [employer] 300 Yes [id number] 1{ampul 1 Ampule Jayesh MG/4ML NEBU 6-26 e} by [place] 00:00: Inhalation of 00 route two Medicin times e daily. Alternate 28 days on and 28 days off. Brand name medically necessary. [place] [address] Yes [id number] 1{ampul 1 Ampule [facility] MG/4ML NEBU 6-26 e} by [place] 00:00: Inhalation of 00 route two Medicin times e daily. Alternate 28 days on and 28 days off. Brand name medically necessary. [place] [address] Yes [id number] 1{ampul 1 Ampule Jayesh MG/4ML NEBU 6-26 e} by [place] 00:00: Inhalation of 00 route two Medicin times e daily. Alternate 28 days on and 28 days off. Brand name medically necessary. [place] [address] Yes [id number] 1{ampul 1 Ampule [facility] MG/4ML NEBU 6-26 e} by [place] 00:00: Inhalation of 00 route two Medicin times e daily. Alternate 28 days on and 28 days off. Brand name medically necessary. [place] [address] Yes [id number] 1{ampul 1 Ampule [facility] MG/4ML NEBU 6-26 e} by [place] 00:00: Inhalation of 00 route two Medicin times e daily. Alternate 28 days on and 28 days off. Brand name medically necessary. [place] [address] Yes [id number] 1{ampul 1 Ampule Jayesh MG/4ML NEBU 6-26 e} by [place] 00:00: Inhalation of 00 route two Medicin times e daily. Alternate 28 days on and 28 days off. Brand name medically necessary. esomeprazol Yes [id number] 40mg Take 1 Cap Jayesh e (NEXIUM) 6-05 by mouth Colle ge 40 MG 00:00: daily. of capsule 00 Medicin e sodium 2018- Yes [id number] 4mL Take 1 [facility] or chloride, 6-03 Ampule by Colle ge Inhalant, 00:00: nebulizati of (HYPER-ELISSA) 00 on two Medici n 7 % times e nebulizer daily. solution sodium 2018- Yes [id number] 4mL Take 1 [facility] or chloride, 6-03 Ampule by Colle ge Inhalant, 00:00: nebulizati of (HYPER-ELISSA) 00 on two Medici n 7 % times e nebulizer daily. solution sodium Yes [id number] 4mL Take 1 [facility] chloride, 6-03 Ampule by Colle ge Inhalant, 00:00: nebulizati of (HYPER-ELISSA) 00 on two Medici n 7 % times e nebulizer daily. solution sodium Yes [id number] 4mL Take 1 [facility] chloride, 6-03 Ampule by Colle ge Inhalant, 00:00: nebulizati of (HYPER-ELISSA) 00 on two Medici n 7 % times e nebulizer daily. solution sodium Yes [id number] 4mL Take 1 [facility] chloride, 6-03 Ampule by Colle ge Inhalant, 00:00: nebulizati of (HYPER-ELISSA) 00 on two Medici n 7 % times e nebulizer daily. solution sodium Yes [id number] 4mL Take 1 [facility] chloride, 6-03 Ampule by Colle ge Inhalant, 00:00: nebulizati of (HYPER-ELISSA) 00 on two Medici n 7 % times e nebulizer daily. solution sodium Yes [id number] 4mL Take 1 [facility] chloride, 6-03 Ampule by Colle ge Inhalant, 00:00: nebulizati of (HYPER-ELISSA) 00 on two Medici n 7 % times e nebulizer daily. solution Vitamin D, 2019- Yes [id number] TAKE 1 Jayesh Ergocalcife 5-28 CAPSULE BY [employer] [facility], 00:00: MOUTH of units CAPS 00 EVERY 7 Medici n DAYS e Vitamin D, 2019-0 Yes [id number] TAKE 1 B aylor Ergocalcife 5-28 CAPSULE BY [employer] vang, 00:00: MOUTH of units CAPS 00 EVERY 7 Medici n DAYS e Vitamin D, 2019-0 Yes [id number] TAKE 1 B aylor Ergocalcife 5-28 CAPSULE BY [employer] taj, 00:00: MOUTH of units CAPS 00 EVERY 7 Medici n DAYS e Vitamin D, 2019-0 Yes [id number] TAKE 1 B aylor Ergocalcife 5-28 CAPSULE BY [employer] vang, 00:00: MOUTH of units CAPS 00 EVERY 7 Medici n DAYS e Vitamin D, 2019-0 Yes [id number] TAKE 1 B aylor Ergocalcife 5-28 CAPSULE BY [employer] vang, 00:00: MOUTH of units CAPS 00 EVERY 7 Medici n DAYS e Vitamin D, 2019-0 Yes [id number] TAKE 1 B aylor Ergocalcife 5-28 CAPSULE BY [employer] vang, 00:00: MOUTH of units CAPS 00 EVERY 7 Medici n DAYS e Vitamin D, 2018-0 Yes [id number] TAKE 1 [facility] Ergocalcife 5-28 CAPSULE BY [employer] vang, 00:00: MOUTH of units CAPS 00 EVERY 7 Medici n DAYS e Vitamin D, 0 2020- No [id number] TAKE 1 [facility] Ergocalcife 5-28 02-27 CAPSULE BY Sara vang, 00:00: 00:00 MOUTH of units CAPS 00 :00 EVERY 7 Medici n DAYS e ergocalcife 2018- Yes [id number] Q7D Take [facility] rol 5-02 50,000 [facility] (ERGOCALCIF 00:00: Units by Me dical TEJA) 00 mouth once Center 50,000 unit a week . capsule ergocalcife 2018- Yes [id number] Q7D Take [facility] rol 5-02 50,000 [facility] (ERGOCALCIF 00:00: Units by Me dical TEJA) 00 mouth once Center 50,000 unit a week . capsule ergocalcife 2018-0 Yes [id number] Q7D Take [facility] St rol 5-02 50,000 [facility] (ERGOCALCIF 00:00: Units by Me dical TEJA) 00 mouth once Center 50,000 unit a week . capsule ergocalcife 2018-0 Yes [id number] Q7D Take [facility] rol 5-02 50,000 [facility] (ERGOCALCIF 00:00: Units by Me dical TEJA) 00 mouth once Center 50,000 unit a week . capsule insulin Yes Use 60 [facility] lispro 4-10 units per College (HUMALOG) 00:00: [...] injection pump. e insulin Yes Use 60 [facility] lispro 4-10 units per College (HUMALOG) 00:00: day via of 100 UNIT/ML 00 insulin Medic in injection pump. e insulin Yes Use 60 [facility] lispro 4-10 units per College (HUMALOG) 00:00: day via of 100 UNIT/ML 00 insulin Medic in injection pump. e insulin Yes Use 60 Jayesh lispro 4-10 units per College (HUMALOG) 00:00: day via of 100 UNIT/ML 00 insulin Medic in injection pump. e dornase Yes [id number] 2.5mg Take 1 [place] alpha 3-08 Ampule by [place] (PULMOZYME) 00:00: nebulizati of 1 MG/ML 00 on two Medicin nebulizer times e solution daily. Pancrelipas Yes [id number] TAKE 5 Jayesh e, 3-08 CAPSULES [place] Lip-Prot-Am 00:00: BY MOUTH of yl, (CREON) 00 WITH Medicin [id number] MEALS, AND e units CPEP TAKE 2 CAPSULES BY MOUTH EVERY DAY WITH SNACKS Pancrelipas 2019- No [id number] TAKE 5 Jayesh e, 3-08 09-24 CAPSULES [place] Lip-Prot-Am 00:00: 00:00 BY MOUTH o f yl, (CREON) 00 :00 WITH Medicin [id number] MEALS, AND e units CPEP TAKE 2 CAPSULES BY MOUTH EVERY DAY WITH SNACKS zolpidem Yes [id number] 10mg Take 1 Tab [facility] (AMBIEN) 10 2-22 by mouth Cheo ege MG tablet 00:00: nightly as of 00 needed for Medicin Sleep. e zolpidem Yes [id number] 10mg Take 1 Tab [facility] (AMBIEN) 10 2-22 by mouth [place] [facility] MG tablet 00:00: nightly as of 00 needed for Medicin Sleep. e zolpidem Yes [id number] 10mg Take 1 Tab Jyaesh (AMBIEN) 10 2-22 by mouth [place] e[place] MG tablet 00:00: nightly as of 00 needed for Medicin Sleep. e zolpidem 2019-0 Yes [id number] 10mg Take 1 Tab [facility] (AMBIEN) 10 2-22 by mouth [place] e[place] MG tablet 00:00: nightly as of 00 needed for Medicin Sleep. e zolpidem 2019-0 Yes [id number] 10mg Take 1 Tab Jayesh (AMBIEN) 10 2-22 by mouth [place] MG tablet 00:00: nightly as of 00 needed for Medicin Sleep. e zolpidem 2019-0 Yes [id number] 10mg Take 1 Tab Jayesh (AMBIEN) 10 2-22 by mouth [place] MG tablet 00:00: nightly as of 00 needed for Medicin Sleep. e zolpidem 2019-0 Yes [id number] 10mg Take 1 Tab Jayesh (AMBIEN) 10 2-22 by mouth [place] MG tablet 00:00: nightly as of 00 needed for Medicin Sleep. e Glucose 2019-0 Yes Check Jayesh Blood 2-07 glucose 5x College Strips 00:00: daily; Dx of (CONTOUR 00 E84.9 Medicin NEXT TEST) e Glucose 2019-0 Yes Check [facility] Blood 2-07 glucose 5x College Strips 00:00: daily; Dx of (CONTOUR 00 E84.9 Medicin NEXT TEST) e Glucose 2019-0 Yes Check [facility] Blood 2-07 glucose 5x College Strips 00:00: [...] 00 E84.9 Medicin NEXT TEST) e Blood 2019-0 Yes Check [facility] Glucose 2-05 glucose 5x Colleg e Monitoring 00:00: daily; Dx of Suppl (ONE 00 E84.9 Medicin TOUCH ULTRA e MINI) w/Device KIT Blood 2018- Yes Check [facility] Glucose 2-05 glucose 5x Colleg e Monitoring 00:00: daily; Dx of Suppl (ONE 00 E84.9 Medicin TOUCH ULTRA e MINI) w/Device KIT Blood Yes Check [facility] Glucose 2-05 glucose 5x Colleg e Monitoring 00:00: daily; Dx of Suppl (ONE E84.9 Medicin TOUCH ULTRA e MINI) w/Device KIT Blood Yes Check [facility] Glucose 2-05 glucose 5x Colleg e Monitoring [...] Monitoring 00:00: daily; Dx of Suppl (ONE E84.9 Medicin TOUCH ULTRA e MINI) w/Device KIT Blood Yes Check [facility] Glucose 2-05 glucose 5x Colleg e Monitoring 00:00: daily; Dx of Suppl (ONE E84.9 Medicin TOUCH ULTRA e MINI) w/Device KIT Blood Yes Check [facility] Glucose 2-05 glucose 5x Colleg e Monitoring 00:00: daily; Dx of Suppl (ONE 00 E84.9 Medicin TOUCH ULTRA e MINI) w/Device KIT Blood 2018- Yes Check Jayesh Glucose 2-05 glucose 5x Colleg e Monitoring 00:00: daily; Dx of Suppl (ONE 00 E84.9 Medicin TOUCH ULTRA e MINI) w/Device KIT Blood Yes Check [facility] Glucose 2-05 glucose 5x Colleg e Monitoring 00:00: daily; Dx of Suppl (ONE 00 E84.9 Medicin TOUCH ULTRA e MINI) w/Device KIT Blood 2018-0 Yes Check [facility] Glucose 2-05 glucose 5x Colleg e Monitoring 00:00: daily; Dx of Suppl (ONE 00 E84.9 Medicin TOUCH ULTRA e MINI) w/Device KIT Blood 2018- Yes Check Jayesh Glucose 2-05 glucose 5x Colleg e Monitoring 00:00: daily; Dx of Suppl (ONE 00 E84.9 Medicin TOUCH ULTRA e MINI) w/Device KIT Blood Yes Check [facility] Glucose 2-05 glucose 5x Colleg e Monitoring 00:00: daily; Dx of Suppl ( E84.9 Medicin TOUCH ULTRA e MINI) w/Device KIT acetaminoph Yes 1{tbl} Take [address] en-codeine 1-25 tablet by Luke s (TYLENOL-CO 00:00: mouth Medic al DEINE #3) 00 every 4 Center 300-30 mg (four) per tablet hours as needed. Max Daily Amount: 6 tablets acetaminoph Yes 1{tbl} Take [address] en-codeine 1-25 tablet by Luke s (TYLENOL-CO 00:00: mouth Medic al DEINE #3) 00 every 4 Center 300-30 mg (four) per tablet hours as needed. Max Daily Amount: 6 tablets acetaminoph Yes 1{tbl} Take [address] en-codeine 1-25 tablet by Luke s (TYLENOL-CO 00:00: mouth Medic al DEINE #3) 00 every 4 Center 300-30 mg (four) per tablet hours as needed. Max Daily Amount: 6 tablets acetaminoph Yes 1{tbl} Take [address] en-codeine 1-25 tablet by Luke s (TYLENOL-CO 00:00: mouth Medic al DEINE #3) 00 every 4 Center 300-30 mg (four) per tablet hours as needed. Max Daily Amount: 6 tablets Glucagon, 2017-10 Yes [id number] 1{appli Inject 1 [facility] rDNA, 2-24 cator} [employer] (GLUCAGON 00:00: as of EMERGENCY) 00 directed Medic in 1 MG KIT as needed. e Glucagon, 2017-10 Yes [id number] 1{appli Inject 1 [facility] rDNA, 2-24 cator} [employer] (GLUCAGON 00:00: as of EMERGENCY) 00 directed Medic in 1 MG KIT as needed. e Glucagon, 2017-10 Yes [id number] 1{appli Inject 1 [facility] rDNA, 2-24 cator} [employer] (GLUCAGON 00:00: as of EMERGENCY) 00 directed Medic in 1 MG KIT as needed. e Insulin 2017-10 Yes [id number] Use as [facility] or Syringe-Nee 2-21 directed. Col lege dle U-100 00:00: of 30G X 5/16" 00 Medicin 0.5 ML MISC e Insulin 2017-10 Yes [id number] Use [facility] Syringes, 2-21 syringe College Disposable, 00:00: every time of U-100 0.3 00 need to Medicin ML MISC inject e insulin Insulin 2017-10 Yes [id number] Use as [facility] or Syringe-Nee 2-21 directed. Col lege dle U-100 00:00: of 30G X 5/16" 00 Medicin 0.5 ML MISC e Insulin 2017-10 Yes [id number] Use [facility] Syringes, 2-21 syringe College Disposable, 00:00: every time of U-100 0.3 00 need to Medicin ML MISC inject e insulin Insulin 2017-10 Yes [id number] Use as [facility] or Syringe-Nee 2-21 directed. Col lege dle U-100 00:00: of 30G X 5/16" 00 Medicin 0.5 ML MISC e Insulin 2017-10 Yes [id number] Use [facility] Syringes, 2-21 syringe College Disposable, 00:00: every time of U-100 0.3 00 need to Medicin ML MISC inject e insulin Insulin 2017-10 Yes [id number] Use as [facility] Syringe-Nee 2-21 directed. Col lege dle U-100 00:00: of 30G X 5/16" 00 Medicin 0.5 ML MISC e Insulin 2017-10 Yes [id number] Use [facility] Syringes, 2-21 syringe College Disposable, 00:00: every time of U-100 0.3 00 need to Medicin ML MISC inject e insulin Insulin 2017-10 Yes [id number] Use as [facility] or Syringe-Nee 2-21 directed. Col lege dle U-100 00:00: of 30G X 5/16" 00 Medicin 0.5 ML MISC e Insulin 2017-10 Yes [id number] Use [facility] Syringes, 2-21 syringe College Disposable, 00:00: every time of U-100 0.3 00 need to Medicin ML MISC inject e insulin Insulin 2017-10 Yes [id number] Use as [facility] or Syringe-Nee 2-21 directed. Col lege dle U-100 00:00: of 30G X 5/16" 00 Medicin 0.5 ML MISC e Insulin 2017-10 Yes [id number] Use [facility] Syringes, 2- syringe [employer] Disposable, 00:00: every time of U-100 0.3 00 need to Medicin ML MISC inject e insulin Insulin 2017-10 Yes [id number] Use as [facility] or Syringe-Nee 12-15 directed. Col lege dle U-100 00:00: of 30G X 5/16" 00 Medicin 0.5 ML MISC e Insulin 2017-10 Yes [id number] Use [facility] Syringes, 2- syringe [employer] Disposable, 00:00: every time of U-100 0.3 00 need to Medicin ML MISC inject e insulin amLODIPine 2017-10 Yes 10mg QD Take 1 [facility] ([facility]VASC[facility] 0-[facility] tablet (10 [facility] 10 MG 00:00: mg total) Medical tablet 00 by mouth Center daily. amLODIPine 2017-10 Yes 10mg QD Take 1 [facility] (NORVASC) 0-30 tablet (10 [facility] 10 MG 00:00: mg total) Medical tablet 00 by mouth Center daily. amLODIPine 2017-10 Yes 10mg QD Take 1 [facility] (NORVASC) 0-30 tablet (10 Luke [facility] 10 MG 00:00: mg total) Medical tablet 00 by mouth Center daily. amLODIPine 2017-10 Yes 10mg QD Take 1 [facility] (NORVASC) 0-30 tablet (10 Luke s 10 MG 00:00: mg total) Medical tablet 00 by mouth Center daily. ACCU-CHEK Yes [id number] 1{each} 1 Each 6 Jayesh FASTCLIX 7-23 times College LANCETS 00:00: daily. of MISC 00 Check 6 Medicin times per e day Insulin Pen Yes [id number] Use as [facility] Needle (BD 05-16 directed Colle ge PEN NEEDLE 00:00: to inject of SAIRA U/F) 00 7 times Medicin 32G X 4 MM daily e MISC ACCU-CHEK Yes [id number] 1{each} 1 Each 6 Jayesh FASTCLIX 7-23 times College LANCETS 00:00: daily. of MISC 00 Check 6 Medicin times per e day Insulin Pen 2017-0 Yes [id number] Use as [facility] Needle (BD 7-23 directed Colle ge PEN NEEDLE 00:00: to inject of SAIRA U/F) 00 7 times Medicin 32G X 4 MM daily e MISC ACCU-CHEK 2018-0 Yes [id number] 1{each} 1 Each 6 [facility] FASTCLIX 7-23 times College LANCETS 00:00: daily. of [employer] 00 Check 6 Medicin times per e day Insulin Pen 2017-0 Yes [id number] Use as [facility] Needle (BD 7-23 directed Colle ge PEN NEEDLE 00:00: to inject of SAIRA U/F) 00 7 times Medicin 32G X 4 MM daily e MISC ACCU-CHEK 2017-0 Yes [id number] 1{each} 1 Each 6 Jayesh FASTCLIX 7-23 times College LANCETS 00:00: daily. of [employer] 00 Check 6 Medicin times per e day Insulin Pen 2017-0 Yes [id number] Use as Jayesh Needle (BD 7-23 directed Colle ge PEN NEEDLE 00:00: to inject of SAIRA U/F) 00 7 times Medicin 32G X 4 MM daily e MISC ACCU-CHEK 2017-0 Yes [id number] 1{each} 1 Each 6 [facility] FASTCLIX 7-23 times College LANCETS 00:00: daily. of [employer] 00 Check 6 Medicin times per e day Insulin Pen 2017-0 Yes [id number] Use as [facility] Needle (BD 7-23 directed Colle ge PEN NEEDLE 00:00: to inject of SAIRA U/F) 00 7 times Medicin 32G X 4 MM daily e MISC ACCU-CHEK 2018-0 Yes [id number] 1{each} 1 Each 6 Jayesh FASTCLIX 7-23 times College LANCETS 00:00: daily. of [employer] 00 Check 6 Medicin times per e day Insulin Pen 2017-0 Yes [id number] Use as Jayesh Needle (BD 7-23 directed Colle ge PEN NEEDLE 00:00: to inject of SAIRA U/F) 00 7 times Medicin 32G X 4 MM daily e MISC ACCU-CHEK 2018-0 Yes [id number] 1{each} 1 Each 6 [facility] FASTCLIX 7-23 times College LANCETS 00:00: daily. of [employer] 00 Check 6 Medicin times per e day Insulin Pen Yes [id number] Use as Jayesh Needle (BD 7-23 directed Colle ge PEN NEEDLE 00:00: to inject of SAIRA U/F) 00 7 times Medicin 32G X 4 MM daily e [employer] ACCU-CHEK Yes [id number] 1{each} 1 Each 6 [facility] FASTCLIX 7-23 times College LANCETS 00:00: daily. of [employer] 00 Check 6 Medicin times per e day Insulin Pen Yes [id number] Use as [facility] Needle (BD 7-23 directed Colle ge PEN NEEDLE 00:00: to inject of SAIRA U/F) 00 7 times Medicin 32G X 4 MM daily e [employer] ACCU-CHEK Yes [id number] 1{each} 1 Each 6 [facility] FASTCLIX 7-23 times College LANCETS 00:00: daily. of [employer] 00 Check 6 Medicin times per e day lumacaftor- 2017- Yes 1{capsu Q.5W Take [address] ivacaftor 6-28 le} capsule by [place] s ([facility] [facility] 00:00: mouth Medical 200-125 mg 00 twice a Center Tab week. lumacaftor- Yes 1{capsu Q.5W Take [address] ivacaftor 6-28 le} capsule by [place] [facility] ([employer] [facility] 00:00: mouth Medical 200-125 mg 00 twice a Center Tab week. lumacaftor- Yes 1{capsu Q.5W Take [address] ivacaftor 6-28 le} capsule by Luke s (ORYulexI) 00:00: mouth Medical 200-125 mg 00 twice a Center Tab week. lumacaftor- Yes 1{capsu Q.5W Take [address] ivacaftor 6-28 le} capsule by Luke s (ORYulexI) 00:00: mouth Medical 200-125 mg 00 twice a Center Tab week. nortriptyli Yes TK 1 C PO U nivers ne 10 mg 3-05 Q NIGHT ity of capsule 00:00: [address] nortriptyli 2018-0 Yes TK 1 C PO U nivers ne 10 mg 3-05 Q NIGHT ity of capsule 00:00: [place] [facility] nortriptyli Yes TK 1 C PO U nivers ne 10 mg 3-05 Q NIGHT ity of capsule 00:00: [place] [facility] nortriptyli Yes TK 1 C PO U nivers ne 10 mg 3-05 Q NIGHT ity of capsule 00:00: [place] [facility] nortriptyli Yes TK 1 C PO U nivers ne 10 mg 3-05 Q NIGHT ity of capsule 00:00: [place] [facility] nortriptyli Yes TK 1 C PO U nivers ne 10 mg 3-05 Q NIGHT ity of capsule 00:00: [place] [facility] nortriptyli Yes TK 1 C PO U nivers ne 10 mg 3-05 Q NIGHT ity of capsule 00:00: [place] [facility] nortriptyli 2022- No TK 1 C PO Univers ne 10 mg 3-05 12-21 Q NIGHT ity of capsule 00:00: 00:00 [place] 00 :00 [facility] nortriptyli 0 2022- No TK 1 C PO Univers ne 10 mg 3-05 12-21 Q NIGHT ity of capsule 00:00: 00:00 [place] 00 :00 [facility] Branch sulfamethox 2018-0 Yes 1{tbl} Take 1 Tab [...] e MG per tablet fluticasone 2018-0 Yes [id number] 2{spray 2 Sprays [facility] (FLONASE) 2-12 } by Each [employer] 50 MCG/ACT 00:00: Nostril of nasal spray 00 route Medicin daily. e fluticasone 2018-0 Yes [id number] 2{spray 2 Sprays [facility] (FLONASE) 2-12 } by Each [place] 50 MCG/ACT 00:00: Nostril of nasal spray 00 route Medicin daily. e fluticasone 2018-0 Yes [id number] 2{spray 2 Sprays [facility] (FLONASE) 2-12 } by Each [place] 50 MCG/ACT 00:00: Nostril of nasal spray 00 route Medicin daily. e levalbutero 2017-0 Yes [id number] Inhale 2 Jayesh l tartrate 1-24 puffs in Colle ge (XOPENEX 00:00: am and pm. of HFA) 45 00 May take Medicin MCG/ACT an e AERO additional inhaler 2 puffs throughout day if needed. levalbutero 2017-0 Yes [id number] Inhale 2 Jayesh l tartrate 1-24 puffs in Colle ge (XOPENEX 00:00: am and pm. of HFA) 45 00 May take Medicin MCG/ACT an e AERO additional inhaler 2 puffs throughout day if needed. levalbutero 2018-0 Yes [id number] Inhale 2 [facility] l tartrate 1-24 puffs in Colle ge [...] TIMES Medica l DAILY Branch SAIRA PEN 0 Yes USE [facility] NEEDLE 32 1-19 DIRECTED ity of gauge x 00:00: TO INJECT [place] 5/32" Ndle 00 7 TIMES Medica l DAILY Branch SAIRA PEN 0 Yes USE [facility] NEEDLE 32 1-19 DIRECTED ity of gauge x 00:00: TO INJECT [place] 5/32" Ndle 00 7 TIMES Medica l DAILY Branch SAIRA PEN 2017-0 Yes USE [facility] NEEDLE 32 1-19 DIRECTED ity of gauge x 00:00: TO INJECT [place] 5/32" Ndle 00 7 TIMES Medica l DAILY Branch SAIRA PEN 2017-0 Yes USE [facility] NEEDLE 32 1-19 DIRECTED ity of gauge x 00:00: TO INJECT [place] 5/32" Ndle 00 7 TIMES Medica l DAILY Branch SAIRA PEN 2017-0 Yes USE [facility] NEEDLE 32 1-19 DIRECTED ity of gauge x 00:00: TO INJECT [place] 5/32" Ndle 00 7 TIMES Medica l DAILY Branch SAIRA PEN 2017-0 Yes USE [facility] NEEDLE 32 1-19 DIRECTED ity of gauge x 00:00: TO INJECT [place] 5/32" Ndle 00 7 TIMES Medica l DAILY Branch predniSONE 2016- Yes [id number] 20mg Take 1 Tab [facility] (DELTASONE) 1-17 by mouth Cheo ege 20 MG 00:00: daily. of tablet 00 Medicin e acetaminoph Yes 1{tbl} Take 1 Tab [facility] en-codeine 6-16 by mouth Colle ge (TYLENOL/CO 00:00: every 4 of DEINE #3) 00 hours as Medici n 300-30 MG needed for e per tablet Pain. acetaminoph Yes 1{tbl} Take 1 Tab [facility] en-codeine 6-16 by mouth Colle ge (TYLENOL/CO 00:00: every 4 of DEINE #3) 00 hours as Medici n 300-30 MG needed for e per tablet Pain. acetaminoph Yes 1{tbl} Take 1 Tab [facility] en-codeine 6-16 by mouth Colle ge (TYLENOL/CO [...] Pain. acetaminoph Yes 1{tbl} Take 1 Tab [facility] en-codeine 6-16 by mouth Colle ge (TYLENOL/CO 00:00: every 4 of DEINE #3) 00 hours as Medici n 300-30 MG needed for e per tablet Pain. acetaminoph Yes 1{tbl} Take 1 Tab [facility] en-codeine 6-16 by mouth Colle ge (TYLENOL/CO [...] Pain. acetaminoph Yes 1{tbl} Take 1 Tab [facility] en-codeine 6-16 by mouth Colle ge (TYLENOL/CO [...] ers with min 2-27 le} capsule by itmarvin o f #[id number] 00:[place] ([place]KAS 00 Medical PLUS, FOLIC Branch ACID,) 200 mcg-1,000 mcg-10 mg Cap CREON 2017-0 Yes Univers 24,000-76,0 2-27 ity of 00 -120,000 00:00: [place] unit 00 Medical capsule Branch multivit 2017-0 Yes 1{capsu Take 1 Univ ers with min 2-27 le} capsule by ity o f #[id number] 00:[place] ([place] 00 Medical PLUS, FOLIC Branch ACID,) 200 mcg-1,000 mcg-10 mg Cap CREON 2017-0 Yes Univers 24,000-76,0 2-27 ity of 00 -120,000 00:00: [place] unit 00 Medical capsule Branch dornase 2017-0 Yes 2.5mg Inhale 2.5 Uni vers brittani 2-24 mg. ity of (PULMOZYME) 00:00: [place] 1 mg/mL 00 Medical Soln Branch nebulizer solution dornase 2017-0 Yes 2.5mg Inhale 2.5 Uni vers brittani 2-24 mg. ity of (PULMOZYME) 00:00: [place] 1 mg/mL 00 Medical Soln Branch nebulizer solution dornase 2017-0 Yes 2.5mg Inhale 2.5 Uni vers brittani 2-24 mg. ity of (PULMOZYME) 00:00: [place] 1 mg/mL 00 Medical Soln Branch nebulizer solution dornase 2017-0 Yes 2.5mg Inhale 2.5 Uni vers brittani 2-24 mg. ity of (PULMOZYME) 00:00: [place] 1 mg/mL 00 Medical Soln Branch nebulizer solution dornase 2017-0 Yes 2.5mg Inhale 2.5 Uni vers brittani 2-24 mg. ity of (PULMOZYME) 00:00: [place] 1 mg/mL 00 Medical Soln Branch nebulizer solution dornase 2017-0 Yes 2.5mg Inhale 2.5 Uni vers brittani 2-24 mg. ity of (PULMOZYME) 00:00: [place] 1 mg/mL 00 Medical Soln Branch nebulizer solution dornase 2017-0 Yes 2.5mg Inhale 2.5 Uni vers brittani 2-24 mg. ity of (PULMOZYME) 00:00: [place] 1 mg/mL 00 Medical Soln Branch nebulizer solution dornase 2017-0 Yes 2.5mg Inhale 2.5 Uni vers brittani 2-24 mg. ity of (PULMOZYME) 00:00: [place] 1 mg/mL 00 Medical Soln Branch nebulizer solution dornase 2017-0 Yes 2.5mg Inhale 2.5 Uni vers brittani 2-24 mg. ity of (PULMOZYME) 00:00: [place] 1 mg/mL 00 Medical Soln Branch nebulizer solution dornase 2017-0 Yes 2.5mg Inhale 2.5 Uni vers brittani 2-24 mg. ity of (PULMOZYME) 00:00: [place] 1 mg/mL 00 Medical Soln Branch nebulizer solution dornase 2017-0 Yes 2.5mg Inhale 2.5 Uni vers brittani 2-24 mg. ity of (PULMOZYME) 00:00: [place] 1 mg/mL 00 Medical Soln Branch nebulizer solution fluticasone 2015-10 Yes 1{puff} Q.5D Take [address] -salmeterol 0-03 puff [facility] (ADVAIR 00:00: mouth 2 Medical DISKUS) 00 (two) Center 500-50 times mcg/dose daily. diskus inhaler mv. min 2015-10 Yes 1{tbl} Q.5D Take [address] [facility] cmb#[id number] 0-03 tablet by Jocelyn es -Q10 00:00: mouth 2 Medical (MULTIVITAM 00 (two) Center IN-MINERALS times -FOLIC daily. ACID-COENZY ME Q10) 100-700-10 mcg-mcg-mg Cap sodium 2015-10 Yes 4mL Q.5D Inhale [address] [facility] chloride, 0-03 mLs by [facility] hypertonic, 00:00: mouth via M edical (HYPER-ELISSA) [address] 7 % (two) nebulizer times solution daily. fluticasone 2015-10 Yes 1{puff} Q.5D Take [address] -salmeterol 0-03 puff by [facility] (ADVAIR 00:00: mouth 2 Medical DISKUS) 00 (two) Center 500-50 times mcg/dose daily. diskus inhaler mv. min 2015-10 Yes 1{tbl} Q.5D Take [address] [facility] cmb#[id number] 0-03 tablet by Jocelyn es -Q10 00:00: mouth 2 Medical (MULTIVITAM 00 (two) Center IN-MINERALS times -FOLIC daily. ACID-COENZY ME Q10) 100-700-10 mcg-mcg-mg Cap sodium 2015-10 Yes 4mL Q.5D Inhale [address] [facility] chloride, 0-03 mLs by [facility] hypertonic, 00:00: mouth via M edical (HYPER-ELISSA) [address] 7 % (two) nebulizer times solution daily. fluticasone 2015-10 Yes 1{puff} Q.5D Take [address] -salmeterol 0-03 puff by [facility] (ADVAIR 00:00: mouth 2 Medical DISKUS) 00 (two) Center 500-50 times mcg/dose daily. diskus inhaler mv. min 2015-10 Yes 1{tbl} Q.5D Take [address] [facility] cmb#[id number] 0-03 tablet by Jocelyn es -Q10 00:00: mouth 2 Medical (MULTIVITAM 00 (two) Center IN-MINERALS times -FOLIC daily. ACID-COENZY ME Q10) 100-700-10 mcg-mcg-mg Cap sodium 2015-10 Yes 4mL Q.5D Inhale [address] [facility] chloride, 0-03 mLs by [facility] hypertonic, 00:00: mouth via M edical (HYPER-ELISSA) [address] 7 % (two) nebulizer times solution daily. fluticasone 2015-10 Yes 1{puff} Q.5D Take [address] -salmeterol 0-03 puff by [facility] (ADVAIR 00:00: mouth 2 Medical DISKUS) 00 (two) Center 500-50 times mcg/dose daily. diskus inhaler mv. min 2015-10 Yes 1{tbl} Q.5D Take [address] [facility] c[facility]#[id number] 0-03 tablet by Jocelyn es -Q10 00:00: mouth 2 Medical (MULTIVITAM 00 (two) Center IN-MINERALS times -FOLIC daily. ACID-COENZY ME Q10) 100-700-10 mcg-mcg-mg Cap sodium 2015-10 Yes 4mL Q.5D Inhale [address] [facility] chloride, 0-03 mLs by [facility] hypertonic, 00:00: mouth via M edical (HYPER-ELISSA) [address] 7 % (two) nebulizer times solution daily. [facility] 300 2015-0 Yes Univer s mg/4 mL 1-21 ity of Nebu 00:00: [place] [facility] BETKIS 300 2016-0 Yes Univer s mg/4 mL 1-21 ity of Nebu 00:00: [place] [facility] BETKIS 300 2016-0 Yes Univer s mg/4 mL 1-21 ity of Nebu 00:00: [place] [facility] BETKIS 300 2016-0 Yes Univer s mg/4 mL 1-21 ity of Nebu 00:00: [place] [facility] BETKIS 300 2016-0 Yes Univer s mg/4 mL 1-21 ity of Nebu 00:00: [place] [facility] BETKIS 300 2016-0 Yes Univer s mg/4 mL 1-21 ity of Nebu 00:00: [place] [facility] BETKIS 300 2016-0 Yes Univer s mg/4 mL 1-21 ity of Nebu 00:00: [place] [facility] BETKIS 300 2016-0 Yes Univer s mg/4 mL 1-21 ity of Nebu 00:00: [place] [facility] BETKIS 300 2016-0 Yes Univer s mg/4 mL 1-21 ity of Nebu 00:00: [place] [facility] BETKIS 300 2016-0 Yes Univer s mg/4 mL 1-21 ity of Nebu 00:00: [place] [facility] BETKIS 300 2016-0 Yes Univer s mg/4 mL 1-21 ity of Nebu 00:00: [place] [facility] tobramycin 2015-0 Yes 1{ampul Q.5D Inhale [address] [facility] (BETHKIS) 1-15 e} ampule by [facility] 300 mg/4 mL 00:00: mouth via M edical Nebu 00 inhaler 2 Center (two) times daily Month on, month off (28 days on 28 days off). tobramycin 2015-0 Yes 1{ampul Q.5D Inhale [address] [facility] (BETHKIS) 1-15 e} ampule by [facility] 300 mg/4 mL 00:00: mouth via M edical Nebu 00 inhaler 2 Center (two) times daily Month on, month off (28 days on 28 days off). tobramycin Yes 1{ampul Q.5D Inhale [address] [facility] (BETHKIS) 1-15 e} ampule by [facility] 300 mg/4 mL 00:00: mouth via M edical Nebu 00 inhaler 2 Center (two) times daily Month on, month off (28 days on 28 days off). tobramycin 2015- Yes 1{ampul Q.5D Inhale [address] [facility] (BETHKIS) 1-15 e} ampule by [facility] 300 mg/4 mL 00:00: mouth via M edical Nebu 00 inhaler 2 Center (two) times daily Month on, month off (28 days on 28 days off). sulfamethox 2016- No 1{tbl} Take 1 Tab [facility] azole-trime 11-05 by mouth Col lege thoprim 19:13: 00:00 two times of (BACTRIM 45 :00 daily. Medicin DS) 800-160 e MG per tablet cetirizine 2014-10 Yes Univers (ZYRTEC) 10 2-27 ity of mg tablet 00:00: [address] cetirizine 2014-10 Yes Univers (ZYRTEC) 10 2-27 ity of mg tablet 00:00: [facility] cetirizine 2014-10 Yes Univers (ZYRTEC) 10 2-27 ity of mg tablet 00:00: [facility] cetirizine 2014-10 Yes Univers (ZYRTEC) 10 2-27 ity of mg tablet 00:00: [facility] cetirizine 2014-10 Yes Univers (ZYRTEC) 10 2-27 ity of mg tablet 00:00: [facility] cetirizine 2014-10 Yes Univers (ZYRTEC) 10 2-27 ity of mg tablet 00:00: [facility] cetirizine 2014-10 Yes Univers (ZYRTEC) 10 2-27 ity of mg tablet 00:00: Medical Branch cetirizine 2014-10 Yes Univers ([facility]) 10 2-27 ity of mg tablet 00:00: [place] 00 Medical Branch cetirizine 2014-10 Yes Univers ([facility]) 10 2-27 ity of mg tablet 00:00: [place] [facility] cetirizine 2014-10 Yes Univers ([facility]) 10 2-27 ity of mg tablet 00:00: [place] [facility] cetirizine 2014-10 Yes Univers ([facility]) 10 2-27 ity of mg tablet 00:00: [place] 00 [facility] sodium 2015- No 1{spray 1 [place] by [facility] chloride 06-26 } Nasal College (NASAL) 18:18: 00:00 route as of 0.65 % 19 :00 needed for Medicin nasal spray Congestion e . fluticasone 2015- No 1{spray 1 [place] by [facility] (FLONASE) 06-26 } Each College 50 MCG/ACT 18:18: 00:00 Nostril of nasal spray 10 :00 route Medicin daily. e ondansetron Yes 4mg Take [address] (ZOFRAN, 7-14 by mouth Luke s HYDROCHLORI 00:00: as needed. Medical DE,) 4 MG 00 Center tablet ondansetron 2014-0 Yes 4mg Take [address] (ZOFRAN, 7-14 by mouth Luke s HYDROCHLORI 00:00: as needed. Medical DE,) 4 MG 00 Center tablet ondansetron 2014-0 Yes 4mg Take [address] (ZOFRAN, 7-14 by mouth Luke s HYDROCHLORI 00:00: as needed. Medical DE,) 4 MG 00 Center tablet ondansetron 2014-0 Yes 4mg Take [address] (ZOFRAN, 7-14 by mouth Luke s HYDROCHLORI 00:00: as needed. Medical DE,) 4 MG 00 Center tablet levalbutero 2016- No [id number] Inhale 2 Jayesh l tartrate 04-30 07-15 puffs in [facility] (XOPENEX 00:00: 00:00 am and pm. of HFA) 45 00 :00 May take Medicin MCG/ACT an e AERO additional inhaler 2 puffs throughout day if needed. Norethin-Et 2015- No [id number] 10ug Take 10 Jayesh h Estrad-Fe -12 12-24 mcg by Malcolm Taylor (LO 00:00: 00:00 mouth of LOESTRIN 00 :00 daily. Medicin FE) 1 MG-10 e MCG / 10 MCG TABS sodium 2015- No [id number] 4mL Take 1 [place] chloride, 03-12 Ampule by [facility] Inhalant, 00:00: 00:00 nebulizati o f (HYPERSAL) 00 :00 on two Medicin 7 % times e nebulizer daily. solution esomeprazol 2015- No [id number] 40mg Take 1 Cap [facility] e (NEXIUM) 03-12 by mouth [facility] 40 MG 00:00: 00:00 daily. of capsule 00 :00 Medicin e Multiple 2016- No [id number] 1{tbl} Take 1 [facility] Vitamins-Mi 03-12 tablet by Co yaniv neraislinn 00:00: 00:00 mouth two of (AQUADEKS) 00 :00 times Medicin CAPS daily. e dornase 2015- No [id number] 2.5mg Take 1 [facility] alpha 03-12 Ampule by [place] (PULMOZYME) 00:00: 00:00 nebulizati of 1 MG/ML 00 :00 on two Medicin nebulizer times e solution daily. albuterol 2014- No [id number] USE ONE [facility] (PROVENTIL) 03-12 VIAL IN [facility] (2.5 mg/3 00:00: 00:00 NEBULIZER of mL) 0.083% 00 :00 THREE Medicin nebulizer TIMES e solution DAILY NEEDED FOR SHORTNESS OF BREATH imipenem-ci 2015- No [id number] Infuse Jayesh lastatin 03-11- 1000 mg [place] (PRIMAXIN) 00:00: 00:00 every 8 of 500 MG 00 :00 hours x 20 Medicin injection weeks. e tigecycline 2015- No [id number] Infuse 50 [facility] (TYGACIL) 03-11- mg daily x Col lege 50 MG 00:00: 00:00 20 weeks. of infusion 00 :00 Medicin e linezolid 2014- No [id number] 600mg Take 1 Tab [facility] (ZYVOX) 600 02-22 by mouth Col lege MG tablet 00:00: 00:00 daily. of 00 :00 Medicin e insulin NPH 2016- No Inject 50 Jayesh (HUMULIN 02-05 u AM and Colleg e N;NOVOLIN 00:00: 00:00 25u PM of N) 100 00 :00 Medicin UNIT/ML e injection NOVOLOG 2014- No [id number] 10U/d Inject [facility] FLEXPEN 100 01-18 07-14 10-60 Colleg e UNIT/ML 00:00: 00:00 Units/day of SOPN 00 :00 into the Medicin skin 3 e times daily (before meals). voriconazol 2015- No [id number] 200mg Take 1 Tab Jayesh e (VFEND) 01-07 by mouth Colle ge 200 MG 00:00: 00:00 two times of tablet 00 :00 daily. Medicin e fluticasone 2015- No [id number] 1{puff} Inhale 1 [facility] -salmeterol 01-07 Puff by [facility] (ADVAIR 00:00: 00:00 mouth two of DISKUS) 00 :00 times Medicin 500-50 daily. e MCG/DOSE Rinse and inhaler gargle with water afterwards . Insulin Pen 2016- No 7{each} 7 Each [facility] Needle (BD 12-12 daily. Colleg e PEN NEEDLE 00:00: 00:00 of SAIRA U/F) 00 :00 Medicin 32G X 4 MM e MISC ACCU-CHEK 2015- No Check [facility] SMARTVIEW 12-12 blood College 00:00: 00:00 sugar 5 of 00 :00 times per Medicin day e ACCU-CHEK 2015- No 150{eac 150 Each 5 [facility] FASTCLIX 12-12-12 h} times College LANCETS 00:00: 00:00 daily. of [employer] [facility] [employer] 00 :00 Check Medicin blood e sugar 5 times per day predniSONE 2014- No 3 tabs [place] [facility] (DELTASONE) 12-12- daily x 1 Co llege 10 MG 00:00: 00:00 week, 2 of tablet 00 :00 tabs daily Medicin x 1 week, e 1 tab daily x 1 week then call office. Pancrelipas 2016- No [id number] Take 5 [facility] e, 11-26 with meals College Lip-Prot-Am 00:00: 00:00 and 2 with of yl, (CREON) 00 :00 [place] [address] UNITS e CPEP Glucagon, 2013-10 2017- No [id number] 1{appli Inject 1 [facility] rDNA, 12-12 cator} Applicator Colle ge (GLUCAGON 00:00: 00:00 as of EMERGENCY) 00 :00 directed Medic in 1 MG KIT as needed. e zolpidem 2013-10- No 10mg Take 1 Tab [facility] (AMBIEN) 10 13 05-05 by mouth Col lege MG tablet 00:00: 00:00 nightly as o f 00 :00 needed for Medicin Sleep. e colistimeth 2013-10 2015- No [id number] Infuse 100 [facility] ate 1-11 07-14 mg IV College (COLYMYCIN) 00:00: 00:00 every 8 of 150 MG 00 :00 hours. Medicin nebulizer e solution Cholecalcif 2015- No [id number] 1{capsu Take 1 [facility] teja 2000 06-30 10-03 le} capsule by Col lege UNITS TABS 00:00: 00:00 mouth of 00 :00 daily. Medicin e Fluticasone 2014- No [id number] 2{squir 2 Squirts [facility] Furoate 06-30 07-14 t} by Each [place] 27.5 00:00: 00:00 Nostril of MCG/SPRAY 00 :00 route Medicin SUSP daily. e Ergocalcife 2015- No 1{tbl} Take 1 Tab [facility] rol 01966 06-13 by mouth Colle ge UNITS CAPS 00:00: 00:00 every 7 of 00 :00 days. Medicin e Guaifenesin 2015- No Take 1-2 [facility] -Codeine 01-1902 teaspoons Colle ge (CHERATUSSI 00:00: 00:00 (5-10 mls) of N AC) 00 :00 for cough Medicin 100-10 at night. e MG/5ML liquid Nutritional 2015- No 4{can} Take 4 [facility] Supplements 10-26 08-17 Cans by [facility] (BOOST 00:00: 00:00 mouth four of PLUS) LIQD 00 :00 times Medicin daily. e Tobramycin 2014- No 4{capsu 4 capsules [facility] (KEREN 04-19 le} by [facility]) 00:00: 00:00 Inhalation o f 28 MG CAPS 00 :00 route two Medi [place] times e daily. Alternate 28 days on and 28 days off. insulin Yes Use [address] [facility] lispro 6-20 units per [facility] (HUMALOG 00:00: day via Medica l U-100 00 insulin Center INSULIN) pump. 100 unit/mL injection insulin Yes Use [address] lispro 6-20 units per [facility] (HUMALOG 00:00: day via Medica l U-100 00 insulin Center INSULIN) pump. 100 unit/mL injection insulin Yes Use [address] lispro 6-20 units per [facility] (HUMALOG 00:00: day via Medica l U-100 00 insulin Center INSULIN) pump. 100 unit/mL injection insulin Yes Use [address] lispro 6-20 units per [facility] (HUMALOG 00:00: day via Medica l U-100 00 insulin Center INSULIN) pump. 100 unit/mL injection Immunizations Ordered Immunization Filled Immunization Date Status Commen ts Source Name Name Pfizer SARS-CoV-2 2021-06-13 Completed [facility] Vaccination 00:00:00 of Medicine Pfizer SARS-CoV-2 2021-06-13 Completed [facility] Vaccination 00:00:00 of Medicine Pfizer SARS-CoV-2 2021-06-13 Completed [facility] Vaccination 00:00:00 of Medicine Pfizer SARS-CoV-2 2021-06-13 Completed [facility] Vaccination 00:00:00 of Medicine Pfizer SARS-CoV-2 2021-01-02 Completed [facility] Vaccination 00:00:00 of Medicine Pfizer SARS-CoV-2 2021-01-02 Completed [facility] Vaccination 00:00:00 of Medicine Pfizer SARS-CoV-2 2021-01-02 Completed [facility] Vaccination 00:00:00 of Medicine Pfizer SARS-CoV-2 2021-01-02 Completed [facility] Vaccination 00:00:00 of Medicine Pfizer SARS-CoV-2 2021-01-02 Completed [facility] Vaccination 00:00:00 of Medicine Influenza Quad-PF 2019-07-18 Completed [facility] 00:00:00 of Medicine Influenza Quad-PF 2019-07-18 Completed [facility] 00:00:00 of Medicine Influenza Quad-PF 2019-07-18 Completed [facility] 00:00:00 of Medicine Influenza Quad-PF 2019-07-18 Completed [facility] 00:00:00 of Medicine Influenza Quad-PF 2019-07-18 Completed [facility] 00:00:00 of Medicine Influenza Quad-PF 2019-07-18 Completed [facility] 00:00:00 of Medicine Influenza Quad-PF 2019-07-18 Completed [facility] 00:00:00 of Medicine Influenza Quad-PF 2019-07-18 Completed [facility] 00:00:00 of Medicine Influenza Quad-PF 2019-07-18 Completed [facility] 00:00:00 of Medicine Influenza Quad-PF 2019-07-18 Completed [facility] 00:00:00 of Medicine Influenza Quad-PF 2019-07-18 Completed [facility] 00:00:00 of Medicine Influenza Quad-PF 2019-07-18 Completed [facility] 00:00:00 of Medicine Influenza Quad-qiv 2019-07-[address] [facility] Non Pf 5+ Yr 00:00:00 [facility] Cent er Influenza Quad-qiv 2019-07-[address] [facility] Non Pf 5+ Yr 00:00:00 Medical Cent er Influenza Quad-qiv 2019-07-[address] [facility] Non Pf 5+ Yr 00:00:00 Medical Cent er Influenza Quad-qiv 2019-07-[address] [facility] Non Pf 5+ Yr 00:00:00 Medical Cent er Influenza Virus 2019-07-18 Completed Universit y of Vaccine 00:00:00 [facility] Influenza Virus 2019-07-18 Completed Universit y of Vaccine 00:00:00 [facility] Influenza Virus 2019-07-18 Completed Universit y of Vaccine 00:00:00 [facility] Influenza Virus 2019-07-18 Completed Universit y of Vaccine 00:00:00 [facility] Influenza Virus 2019-07-18 Completed Universit y of Vaccine 00:00:00 [facility] Influenza Virus 2019-07-18 Completed Universit y of Vaccine 00:00:00 [facility] Influenza Virus 2019-07-18 Completed Universit y of Vaccine 00:00:00 [facility] Influenza Virus 2019-07-18 Completed Universit y of Vaccine 00:00:00 [facility] Influenza Virus 2019-07-18 Completed Universit y of Vaccine 00:00:00 [facility] Influenza Virus 2019-07-18 Completed Universit y of Vaccine 00:00:00 [facility] Influenza Virus 2019-07-18 Completed Universit y of Vaccine 00:00:00 [facility] Influenza Four-QIV 2018-08-[address] [facility] Non-PF 5+ YR 00:00:00 [facility] Influenza Four-QIV 2018-08-[address] [facility] Non-PF 5+ YR 00:00:00 [facility] Influenza Four-QIV 2018-08-[address] [facility] Non-PF 5+ YR 00:00:00 [facility] Cent [facility] Influenza Four-QIV 2018-08-[address] [facility] Non-PF 5+ YR 00:00:00 [facility] Influenza Virus 2018-08-16 Completed Universit y of Vaccine 00:00:00 [facility] Influenza Virus 2018-08-16 Completed Universit y of Vaccine 00:00:00 [facility] Influenza Virus 2018-08-16 Completed Universit y of Vaccine 00:00:00 [facility] Influenza Virus 2018-08-16 Completed Universit y of Vaccine 00:00:00 [facility] Influenza Virus 2018-08-16 Completed Universit y of Vaccine 00:00:00 [facility] Influenza Virus 2018-08-16 Completed Universit y of Vaccine 00:00:00 [facility] Influenza Virus 2018-08-16 Completed Universit y of Vaccine 00:00:00 [facility] Influenza Virus 2018-08-16 Completed Universit y of Vaccine 00:00:00 [facility] Influenza Virus 2018-08-16 Completed Universit y of Vaccine 00:00:00 [facility] Influenza Virus 2018-08-16 Completed Universit y of Vaccine 00:00:00 [facility] Influenza Virus 2018-08-16 Completed Universit y of Vaccine 00:00:00 [facility] 2018-01-[address] [facility] 00:00:00 [facility] 2018-01-[address] [facility] 00:00:00 [facility] 2018-01-[address] [facility] 00:00:00 [facility] 2018-01-[address] [facility] 00:00:00 [facility] 2018-01-12 Completed University of 00:00:00 [facility] 2018-01-12 Completed University of 00:00:00 [facility] 2018-01-12 Completed University of 00:00:00 [facility] 2018-01-12 Completed University of 00:00:00 [facility] 2018-01-12 Completed University of 00:00:00 [facility] 2018-01-12 Completed University of 00:00:00 [facility] 2018-01-12 Completed University of 00:00:00 [facility] 2018-01-12 Completed University of 00:00:00 [facility] 2018-01-12 Completed University of 00:00:00 [facility] 2018-01-12 Completed University of 00:00:00 [facility] 2018-01-12 Completed University of 00:00:00 [facility] Influenza Quad-PF 2017-10-08 Completed [facility] 00:00:00 of Medicine Influenza Quad-PF 2017-10-08 Completed [facility] 00:00:00 of Medicine Influenza Quad-PF 2017-10-08 Completed [facility] 00:00:00 of Medicine Influenza Quad-PF 2017-10-08 Completed [facility] 00:00:00 of Medicine Influenza Quad-PF 2017-10-08 Completed [facility] 00:00:00 of Medicine Influenza Quad-PF 2017-10-08 Completed [facility] 00:00:00 of Medicine Influenza Quad-PF 2017-10-08 Completed [facility] 00:00:00 of Medicine Influenza Quad-PF 2017-10-08 Completed [facility] 00:00:00 of Medicine Influenza Quad-PF 2017-10-08 Completed [facility] 00:00:00 of Medicine Influenza Quad-PF 2017-10-08 Completed [facility] 00:00:00 of Medicine Influenza Quad-PF 2017-10-08 Completed [facility] 00:00:00 of Medicine Influenza Quad-PF 2017-10-08 Completed [facility] 00:00:00 of Medicine Influenza Quad-PF 2017-10-08 Completed [facility] 00:00:00 of Medicine Influenza Quad-qiv 2017-10-[address] [facility] Non Pf 5+ Yr 00:00:00 [facility] Influenza Quad-qiv 2017-10-[address] [facility] Non Pf 5+ Yr 00:00:00 [facility] Influenza Quad-qiv 2017-10-[address] [facility] Non Pf 5+ Yr 00:00:00 [facility] Influenza Quad-qiv 2017-10-[address] [facility] Non Pf 5+ Yr 00:00:00 [facility] Influenza Virus 2017-10-08 Completed Universit y of Vaccine 00:00:00 [facility] Influenza Virus 2017-10-08 Completed Universit y of Vaccine 00:00:00 [facility] Influenza Virus 2017-10-08 Completed Universit y of Vaccine 00:00:00 [facility] Influenza Virus 2017-10-08 Completed Universit y of Vaccine 00:00:00 [facility] Influenza Virus 2017-10-08 Completed Universit y of Vaccine 00:00:00 [facility] Influenza Virus 2017-10-08 Completed Universit y of Vaccine 00:00:00 [facility] Influenza Virus 2017-10-08 Completed Universit y of Vaccine 00:00:00 [facility] Influenza Virus 2017-10-08 Completed Universit y of Vaccine 00:00:00 [facility] Influenza Virus 2017-10-08 Completed Universit y of Vaccine 00:00:00 [facility] Influenza Virus 2017-10-08 Completed Universit y of Vaccine 00:00:00 [facility] Influenza Virus 2017-10-08 Completed [facility] 00:00[facility]00 [facility] Influenza Three-TIV 2016-08-08 Completed [facility] PF 5+ YR 00[facility]00:00 [facility] Influenza Three-TIV 2016-08-08 Completed [facility] PF 5+ YR 00:00:00 [facility] Influenza Three-TIV 2016-08-08 Completed [facility] PF 5+ YR 00:00:00 [facility] Influenza Three-TIV 2016-08-08 Completed [facility] PF 5+ YR 00:00:00 [facility] Influenza Virus 2016-08-08 Completed [facility] Vaccine 00:00:00 [facility] Influenza Virus 2016-08-08 Completed [facility] Vaccine 00:00:00 [facility] Influenza Virus 2016-08-08 Completed [facility] Vaccine 00:00:00 [facility] Influenza Virus 2016-08-08 Completed [facility] Vaccine 00:00:00 [facility] Influenza Virus 2016-08-08 Completed [facility] Vaccine 00:00:00 [facility] Influenza Virus 2016-08-08 Completed [facility] Vaccine 00:00:00 [facility] Influenza Virus 2016-08-08 Completed [facility] Vaccine 00:00:00 [facility] Influenza Virus 2016-08-08 Completed [facility] Vaccine 00:00:00 [facility] Influenza Virus 2016-08-08 Completed [facility] Vaccine 00:00:00 [facility] Influenza Virus 2016-08-08 Completed [facility] Vaccine 00:00:00 [facility] Influenza Virus 2016-08-08 Completed [facility] Vaccine 00:00:00 [facility] HPV-9 2016-05-[address] [facility] 00:00:00 [facility] HPV-9 2016-05-[address] [facility] 00:00:00 [facility] HPV-9 2016-05-[address] [facility] 00:00:00 [facility] HPV-9 2016-05-[address] [facility] 00[facility]00:00 [facility] HPV9 2016-05-22 Completed [facility] 00:00:00 [facility] HPV9 2016-05-22 Completed [facility] 00:00:00 [facility] HPV9 2016-05-22 Completed [facility] 00:00:00 [facility] HPV9 2016-05-22 Completed [facility] 00:00:00 [facility] HPV9 2016-05-22 Completed [facility] 00:00:00 [facility] HPV9 2016-05-22 Completed [facility] 00:00:00 [facility] HPV9 2016-05-22 Completed [facility] 00:00:00 [facility] HPV9 2016-05-22 Completed [facility] 00:00:00 [facility] HPV9 2016-05-22 Completed [facility] 00:00:00 [facility] HPV9 2016-05-22 Completed [facility] 00:00:00 [facility] HPV9 2016-05-22 Completed [facility] 00:00:00 [facility] HPV-9 2016-01-[address] [facility] 00:00:00 [facility] HPV-9 2016-01-[address] [facility] 00:00:00 [facility] HPV-9 2016-01-[address] [facility] 00:00:00 [facility] HPV-9 2016-01-[address] [facility] 00[facility]00:00 [facility] HPV9 2016-01-21 Completed [facility] 00:00:00 [facility] HPV9 2016-01-21 Completed [facility] 00:00:00 [facility] HPV9 2016-01-21 Completed [facility] 00:00:00 [facility] HPV9 2016-01-21 Completed [facility] 00:00:00 [facility] HPV9 2016-01-21 Completed [facility] 00:00:00 [facility] HPV9 2016-01-21 Completed [facility] 00:00:00 [facility] HPV9 2016-01-21 Completed [facility] 00:00:00 [facility] HPV9 2016-01-21 Completed [facility] 00:00:00 [facility] HPV9 2016-01-21 Completed [facility] 00:00:00 [facility] HPV9 2016-01-21 Completed [facility] 00:00:00 [facility] HPV9 2016-01-21 Completed [facility] 00:00:00 [facility] HPV-9 2015-11-[address] [facility] 00:00:00 [facility] HPV-9 2015-11-[address] [facility] 00:00:00 [facility] HPV-9 2015-11-[address] [facility] 00:00:00 [facility] HPV-9 2015-11-[address] [facility] 00:00:00 [facility] HPV9 2015-11-22 Completed [facility] 00:00:00 [facility] HPV9 2015-11-22 Completed [facility] 00:00:00 [facility] HPV9 2015-11-22 Completed [facility] 00:00:00 [facility] HPV9 2015-11-22 Completed [facility] 00:00:00 [facility] HPV9 2015-11-22 Completed [facility] 00:00:00 [facility] HPV9 2015-11-22 Completed [facility] 00:00:00 [facility] HPV9 2015-11-22 Completed [facility] 00:00:00 [facility] HPV9 2015-11-22 Completed [facility] 00:00:00 [facility] HPV9 2015-11-22 Completed [facility] 00:00:00 [facility] HPV9 2015-11-22 Completed [facility] 00:00:00 [facility] HPV9 2015-11-22 Completed [facility] 00:00:00 [facility] Pneumococcal 2015-08-[address] [facility] Polysaccharide 00:00:00 [facility] (Pneumovax[facility] Influenza Three-TIV 2015-08-05 Completed [facility]+ [facility] Pneumococcal 2015-08-[address] [facility] Polysaccharide 00:00:00 [facility] (Pneumovax[facility] Influenza Three-TIV 2015-08-05 Completed [facility] PF 5+ YRS 00:00[facility] Pneumococcal 2015-08-[address] [facility] Polysaccharide 00:00:00 [facility] (Pneumovax) Influenza Three-TIV 2015-08-05 Completed [facility] PF 5+ YRS 00:00:00 [facility] Pneumococcal 2015-08-[address] [facility] Polysaccharide 00:00:00 [facility] (Pneumovax) Influenza Three-TIV 2015-08-05 Completed [facility] PF 5+ YRS 00:00:00 [facility] Influenza Virus 2015-08-05 Completed [facility] Vaccine 00:00:00 [facility] Pneumococcal 13 2015-08-05 Completed [facility] Conjugate, PCV13 00:00:00 [facility] dical (Prevnar 13) Branch Influenza Virus 2015-08-05 Completed [facility] Vaccine 00:00:00 [facility] Pneumococcal 13 2015-08-05 Completed [facility] Conjugate, PCV13 00:00:00 [facility] dical (Prevnar 13) Branch Influenza Virus 2015-08-05 Completed [facility] Vaccine 00:00:00 [facility] Pneumococcal 13 2015-08-05 Completed [facility] Conjugate, PCV13 00:00:00 [facility] dical (Prevnar 13) Branch Influenza Virus 2015-08-05 Completed [facility] Vaccine 00:00:00 [facility] Pneumococcal 13 2015-08-05 Completed [facility] Conjugate, PCV13 00:00:00 [facility] dical (Prevnar 13) [place] Influenza Virus 2015-08-05 Completed [facility] Vaccine 00:00:00 [facility] Pneumococcal 13 2015-08-05 Completed [facility] Conjugate, PCV13 00:00:00 [facility] dical (Prevnar 13) Branch Influenza Virus 2015-08-05 Completed [facility] Vaccine 00:00:00 [facility] Pneumococcal 13 2015-08-05 Completed [facility] Conjugate, PCV13 00:00:00 [facility] dical (Prevnar 13) Branch Influenza Virus 2015-08-05 Completed [facility] Vaccine 00:00:00 [facility] Pneumococcal 13 2015-08-05 Completed [facility] Conjugate, PCV13 00:00:00 [facility] dical (Prevnar 13) [place] Influenza Virus 2015-08-05 Completed [facility] Vaccine 00:00:00 [facility] Pneumococcal 13 2015-08-05 Completed [facility] Conjugate, PCV13 00:00:00 [facility] dical (Prevnar 13) [place] Influenza Virus 2015-08-05 Completed [facility] Vaccine 00:00:00 [facility] Pneumococcal 13 2015-08-05 Completed [facility] Conjugate, PCV13 00:00:00 [facility] dical (Prevnar 13) Branch Influenza Virus 2015-08-05 Completed [facility] Vaccine 00:00:00 [facility] Pneumococcal 13 2015-08-05 Completed [facility] Conjugate, PCV13 00:00:00 [facility] dical (Prevnar 13) Branch Influenza Virus 2015-08-05 Completed [facility] Vaccine 00:00:00 [facility] Pneumococcal 13 2015-08-05 Completed [facility] Conjugate, PCV13 00:00:00 [facility] dical (Prevnar 13) [place] Influenza (whole) 2012-08-30 Completed [facility] 00:00:00 of Medicine Influenza (whole) 2012-08-30 Completed [facility] 00:00:00 of Medicine Influenza (whole) 2012-08-30 Completed [facility] 00:00:00 of Medicine Influenza (whole) 2012-08-30 Completed [facility] 00:00:00 of Medicine Influenza (whole) 2012-08-30 Completed [facility] 00:00:00 of Medicine Influenza (whole) 2012-08-30 Completed [facility] 00:00:00 of Medicine Influenza (whole) 2012-08-30 Completed [facility] 00:00:00 of Medicine Influenza (whole) 2012-08-30 Completed [facility] 00:00:00 of Medicine Influenza (whole) 2012-08-30 Completed [facility] 00:00:00 of Medicine Influenza (whole) 2012-08-30 Completed [facility] 00:00:00 of Medicine Influenza (whole) 2012-08-30 Completed [facility] 00:00:00 of Medicine Influenza (whole) 2012-08-30 Completed [facility] 00:00:00 of Medicine Influenza (whole) 2012-08-30 Completed [facility] 00:00:00 of Medicine Influenza (whole) 2012-08-30 Completed [facility] 00:00:00 of Medicine Influenza Three-TIV 2012-08-30 Completed [facility] Non-PF 5+ YR [facility]:00[facility]00 [facility]-TIV 2012-08-30 Completed [facility] Non-PF 5+ YR 00:00:00 [facility] Influ[facility] Three-TIV 2012-08-30 Completed [facility] Non-PF 5+ YR 00:00:00 [facility] Influenza Three-TIV 2012-08-30 Completed [facility] Non-PF 5+ YR 00:00:00 [facility] Influ[facility] Virus 2012-08-30 Completed [facility] Vaccine 00:00:00 [facility] Influenza Virus 2012-08-30 Completed [facility] Vaccine (3+ yrs) 00:00:00 [facility] Influenza Virus 2012-08-30 Completed [facility] Vaccine 00:00:00 [facility] Influenza Virus 2012-08-30 Completed [facility] Vaccine (3+ yrs) 00:00:00 [facility] Influenza Virus 2012-08-30 Completed [facility] Vaccine 00:00:00 [facility] Influenza Virus 2012-08-30 Completed [facility] Vaccine (3+ yrs) 00:00:00 [facility] Influenza Virus 2012-08-30 Completed [facility] Vaccine 00:00:00 [facility] Influenza Virus 2012-08-30 Completed [facility] Vaccine (3+ yrs) 00:00:00 [facility] Influenza Virus 2012-08-30 Completed [facility] Vaccine 00:00:00 [facility] Influenza Virus 2012-08-30 Completed [facility] Vaccine (3+ yrs) 00:00:00 [facility] Influenza Virus 2012-08-30 Completed [facility] Vaccine 00:00:00 [facility] Influenza Virus 2012-08-30 Completed [facility] Vaccine (3+ yrs) 00:00:00 [facility] Influenza Virus 2012-08-30 Completed [facility] Vaccine 00:00:00 [facility] Influenza Virus 2012-08-30 Completed [facility] Vaccine (3+ yrs) 00:00:00 [facility] Influenza Virus 2012-08-30 Completed [facility] Vaccine 00:00:00 [facility] Influenza Virus 2012-08-30 Completed [facility] Vaccine (3+ yrs) 00:00:00 [facility] Influenza Virus 2012-08-30 Completed [facility] Vaccine 00:00:00 [facility] Influenza Virus 2012-08-30 Completed [facility] Vaccine (3+ yrs) 00:00:00 [facility] Influenza Virus 2012-08-30 Completed [facility] Vaccine 00:00:00 [facility] Influenza Virus 2012-08-30 Completed [facility] Vaccine (3+ yrs) 00:00:00 [facility] Influenza Virus 2012-08-30 Completed [facility] Vaccine 00:00:00 [facility] Influenza Virus 2012-08-30 Completed [facility] Vaccine (3+ yrs) 00:00:00 [facility] Influenza Virus 2011-11-27 Completed [facility] Vaccine (3+ yrs) 00:00:00 [facility] Influenza Virus 2011-11-27 Completed [facility] Vaccine 00:00:00 [facility] Influenza Virus 2011-11-27 Completed [facility] Vaccine (3+ yrs) 00:00:00 [facility] Influenza Virus 2011-11-27 Completed [facility] Vaccine 00:00:00 [facility] Influenza Virus 2011-11-27 Completed [facility] Vaccine (3+ yrs) 00:00:00 [facility] Influenza Virus 2011-11-27 Completed [facility] Vaccine 00:00:00 [facility] Influenza Virus 2011-11-27 Completed [facility] Vaccine (3+ yrs) 00:00:00 [facility] Influenza Virus 2011-11-27 Completed [facility] Vaccine 00:00:00 [facility] Influenza Virus 2011-11-27 Completed [facility] Vaccine (3+ yrs) 00:00:00 [facility] Influenza Virus 2011-11-27 Completed [facility] Vaccine 00:00:00 [facility] Influenza Virus 2011-11-27 Completed [facility] Vaccine (3+ yrs) 00:00:00 [facility] Influenza Virus 2011-11-27 Completed [facility] Vaccine 00:00:00 [facility] Influenza Virus 2011-11-27 Completed [facility] Vaccine (3+ yrs) 00:00:00 [facility] Influenza Virus 2011-11-27 Completed [facility] Vaccine 00:00:00 [facility] Influenza Virus 2011-11-27 Completed [facility] Vaccine (3+ yrs) 00:00:00 [facility] Influenza Virus 2011-11-27 Completed [facility] Vaccine 00:00:00 [facility] Influenza Virus 2011-11-27 Completed [facility] Vaccine (3+ yrs) 00:00:00 [facility] Influenza Virus 2011-11-27 Completed [facility] Vaccine 00:00:00 [facility] Influenza Virus 2011-11-27 Completed [facility] Vaccine (3+ yrs) 00:00:00 [facility] Influenza Virus 2011-11-27 Completed [facility] Vaccine 00:00:00 [facility] Influenza Virus 2011-11-27 Completed [facility] Vaccine (3+ yrs) 00:00:00 [facility] Influenza Three-TIV 2011-11-27 Completed [facility] Non-PF 5+ [facility]R [facility] Three-TIV 2011-11-27 Completed [facility] Non-PF 5+ YR 00:00:00 [facility] Influenza Three-TIV 2011-11-27 Completed [facility] Non-PF 5+ YR 00:00:00 [facility] Influenza Three-TIV 2011-11-27 Completed [facility] Non-PF 5+ YR 00:00:00 [facility] Influenza Virus 2011-11-27 Completed [facility] Vaccine 00:00:00 [facility] Influenza Virus 2011-08-14 Completed [facility] Vaccine 00:00:00 [facility] Influenza Virus 2011-08-14 Completed [facility] Vaccine (3+ yrs) 00:00:00 [facility] Influenza Virus 2011-08-14 Completed [facility] Vaccine 00:00:00 [facility] Influenza Virus 2011-08-14 Completed [facility] Vaccine (3+ yrs) 00:00:00 [facility] Influenza Virus 2011-08-14 Completed [facility] Vaccine 00:00:00 [facility] Influenza Virus 2011-08-14 Completed [facility] Vaccine (3+ yrs) 00:00:00 [facility] Influenza Virus 2011-08-14 Completed [facility] Vaccine 00:00:00 [facility] Influenza Virus 2011-08-14 Completed [facility] Vaccine (3+ yrs) 00:00:00 [facility] Influenza Virus 2011-08-14 Completed [facility] Vaccine 00:00:00 [facility] Influenza Virus 2011-08-14 Completed [facility] Vaccine (3+ yrs) 00:00:00 [facility] Influenza Virus 2011-08-14 Completed [facility] Vaccine 00:00:00 [facility] Influenza Virus 2011-08-14 Completed [facility] Vaccine (3+ yrs) 00:00:00 [facility] Influenza Virus 2011-08-14 Completed [facility] Vaccine 00:00:00 [facility] Influenza Virus 2011-08-14 Completed [facility] Vaccine (3+ yrs) 00:00:00 [facility] Influenza Virus 2011-08-14 Completed [facility] Vaccine 00:00:00 [facility] Influenza Virus 2011-08-14 Completed [facility] Vaccine (3+ yrs) 00:00:00 [facility] Influenza Virus 2011-08-14 Completed [facility] Vaccine 00:00:00 [facility] Influenza Virus 2011-08-14 Completed [facility] Vaccine (3+ yrs) 00:00:00 [facility] Influenza Virus 2011-08-14 Completed [facility] Vaccine 00:00:00 [facility] Influenza Virus 2011-08-14 Completed [facility] Vaccine (3+ yrs) 00:00:00 [facility] Influenza Virus 2011-08-14 Completed [facility] Vaccine 00:00:00 [facility] Influenza Virus 2011-08-14 Completed [facility] Vaccine (3+ yrs) 00:00:00 [facility] Influenza Three-TIV 2011-08-14 Completed [facility] PF 5+ YR 00:00:00 [facility] Influenza Three-TIV 2011-08-14 Completed [facility] PF 5+ YR 00:00:00 [facility] Influenza Three-TIV 2011-08-14 Completed [facility] PF 5+ YR 00:00:00 [facility] Influenza Three-TIV 2011-08-14 Completed [facility] PF 5+ YR 00[facility]00:00 [facility] Influenza Virus 2010-11-15 Completed [facility] Vaccine 00:00:00 [facility] Influenza Virus 2010-11-15 Completed [facility] Vaccine (3+ yrs) 00:00:00 [facility] Influenza Virus 2010-11-15 Completed [facility] Vaccine 00:00:00 [facility] Influenza Virus 2010-11-15 Completed [facility] Vaccine (3+ yrs) 00:00:00 [facility] Influenza Virus 2010-11-15 Completed [facility] Vaccine 00:00:00 [facility] Influenza Virus 2010-11-15 Completed [facility] Vaccine (3+ yrs) 00:00:00 [facility] Influenza Virus 2010-11-15 Completed [facility] Vaccine 00:00:00 [facility] Influenza Virus 2010-11-15 Completed [facility] Vaccine (3+ yrs) 00:00:00 [facility] Influenza Virus 2010-11-15 Completed [facility] Vaccine 00:00:00 [facility] Influenza Virus 2010-11-15 Completed [facility] Vaccine (3+ yrs) 00:00:00 [facility] Influenza Virus 2010-11-15 Completed [facility] Vaccine 00:00:00 [facility] Influenza Virus 2010-11-15 Completed [facility] Vaccine (3+ yrs) 00:00:00 [facility] Influenza Virus 2010-11-15 Completed [facility] Vaccine 00:00:00 [facility] Influenza Virus 2010-11-15 Completed [facility] Vaccine (3+ yrs) 00:00:00 [facility] Influenza Virus 2010-11-15 Completed [facility] Vaccine 00:00:00 [facility] Influenza Virus 2010-11-15 Completed [facility] Vaccine (3+ yrs) 00:00:00 [facility] Influenza Virus 2010-11-15 Completed [facility] Vaccine 00:00:00 [facility] Influenza Virus 2010-11-15 Completed [facility] Vaccine (3+ yrs) 00:00:00 [facility] Influenza Virus 2010-11-15 Completed [facility] Vaccine 00:00:00 [facility] Influenza Virus 2010-11-15 Completed [facility] Vaccine (3+ yrs) 00:00:00 [facility] Influenza Virus 2010-11-15 Completed [facility] Vaccine 00:00:00 [facility] Influenza Virus 2010-11-15 Completed [facility] Vaccine (3+ yrs) 00:00:00 [facility] Influenza Three-TIV 2010-11-15 Completed [facility] Non-PF 5+ YR [facility] Three-TIV 2010-11-15 Completed [facility] Non-PF 5+ YR 00:00:00 [facility] Influenza Three-TIV 2010-11-15 Completed [facility] Non-PF 5+ YR 00:00:00 [facility] Influenza Three-TIV 2010-11-15 Completed [facility] Non-PF 5+ YR 00:00:00 [facility] H1n1 Vaccine 2009-10-08 Completed [facility] 00:00:00 [facility] Influenza Virus 2009-10-08 Completed [facility]ine 00:00:00 [facility] H1n1 Vaccine 2009-10-08 Completed [facility] 00:00:00 [facility] Influenza Virus 2009-10-08 Completed [facility] Vaccine (3+ yrs) 00:00:00 [facility] H1n1 Vaccine 2009-10-08 Completed [facility] 00:00:00 [facility] Influenza Virus 2009-10-08 Completed [facility] Vaccine 00:00:00 [facility] H1n1 Vaccine 2009-10-08 Completed [facility] 00:00:00 [facility] Influenza Virus 2009-10-08 Completed [facility] Vaccine (3+ yrs) 00:00:00 [facility] 2009-10-08 Completed [facility] 00:00:00 [facility] Influenza Virus 2009-10-08 Completed [facility] Vaccine 00:00:00 [facility] H1n1 Vaccine 2009-10-08 Completed [facility] 00:00:00 [facility] Influenza Virus 2009-10-08 Completed [facility] Vaccine (3+ yrs) 00:00:00 [facility] H1n1 Vaccine 2009-10-08 Completed [facility] 00:00:00 [facility] Influenza Virus 2009-10-08 Completed [facility] 00:00:00 [facility] H1n1 Vaccine 2009-10-08 Completed [facility] 00[facility]00:00 [facility] Influenza Virus 2009-10-08 Completed [facility] Vaccine (3+ yrs) 00:00:00 [facility] H1n1 Vaccine 2009-10-08 Completed [facility] 00:00:00 [facility] Influenza Virus 2009-10-08 Completed [facility] Vaccine 00:00:00 [facility] H1n1 Vaccine 2009-10-08 Completed [facility] 00:00:00 [facility] Influenza Virus 2009-10-08 Completed [facility] Vaccine (3+ yrs) 00:00:00 [facility] H1n1 Vaccine 2009-10-08 Completed [facility] 00:00:00 [facility] Influenza Virus 2009-10-08 Completed [facility] Vaccine 00:00:00 [facility] H1n1 Vaccine 2009-10-08 Completed [facility] 00:00:00 [facility] Influenza Virus 2009-10-08 Completed [facility] Vaccine (3+ yrs) 00:00:00 [facility] H1n1 Vaccine 2009-10-08 Completed [facility] f 00:00:00 [facility] Influenza Virus 2009-10-08 Completed [facility] Vaccine 00:00:00 [facility] H1n1 Vaccine 2009-10-08 Completed [facility] 00:00:00 [facility] Influenza Virus 2009-10-08 Completed [facility] Vaccine (3+ yrs) 00:00:00 [facility] H1n1 Vaccine 2009-10-08 Completed [facility] 00:00:00 [facility] Influenza Virus 2009-10-08 Completed [facility] Vaccine 00:00:00 [facility] H1n1 Vaccine 2009-10-08 Completed [facility] 00:00:00 [facility] Influenza Virus 2009-10-08 Completed [facility] Vaccine (3+ yrs) 00:00:00 [facility] H1n1 Vaccine 2009-10-08 Completed [facility] 00:00:00 [place] [facility] Influenza Virus 2009-10-08 Completed [facility] Vaccine 00:00:00 [facility] H1n1 Vaccine 2009-10-08 Completed [facility] 00:00:00 [facility] Influenza Virus 2009-10-08 Completed [facility] Vaccine (3+ yrs) 00:00:00 [facility] H1n1 Vaccine 2009-10-08 Completed [facility] f 00:00:00 [facility] Influenza Virus 2009-10-08 Completed [facility] Vaccine 00:00:00 [facility] H1n1 Vaccine 2009-10-08 Completed [facility] 00:00:00 [facility] Influenza Virus 2009-10-08 Completed [facility] Vaccine (3+ yrs) 00:00:00 [facility] H1n1 Vaccine 2009-10-08 Completed [facility] 00:00:00 [facility] Influenza Virus 2009-10-08 Completed [facility] Vaccine 00:00:00 [facility] H1n1 Vaccine 2009-10-08 Completed [facility] 00:00:00 [facility] Influenza Virus 2009-10-08 Completed [facility] Vaccine (3+ yrs) 00:00:00 [facility] H1N1 2009-10-[address] [facility] 00:00:00 [facility] Influenza Three-TIV 2009-10-08 [facility] PF 5+ YR 00:00:00 [facility] H1N1 2009-10-[address] [facility] 00:00:00 [facility] Influenza Three-TIV 2009-10-08 [facility] PF 5+ YR 00:00:00 [facility] H1N1 2009-10-[address] [facility] 00[facility]00:00 [facility] Influenza Three-TIV 2009-10-08 [facility] 5+ YR 00:00:00 [facility] H1N1 2009-10-[address] [facility] 00:00:00 [facility] Influenza Three-TIV 2009-10-08 Com[facility] 5+ YR 00:00:00 [facility] Influenza Virus 2008-08-07 Completed [facility] Vaccine 00:00:00 [facility] Influenza Virus 2008-08-07 Completed [facility] Vaccine (3+ yrs) 00:00:00 [facility] Influenza Virus 2008-08-07 Completed [facility] Vaccine 00:00:00 [facility] Influenza Virus 2008-08-07 Completed [facility] Vaccine (3+ yrs) 00:00:00 [facility] Influenza Virus 2008-08-07 Completed [facility] Vaccine 00:00:00 [facility] Influenza Virus 2008-08-07 Completed [facility] Vaccine (3+ yrs) 00:00:00 [facility] Influenza Virus 2008-08-07 Completed [facility] Vaccine 00:00:00 [facility] Influenza Virus 2008-08-07 Completed [facility] Vaccine (3+ yrs) 00:00:00 [facility] Influenza Virus 2008-08-07 Completed [facility] Vaccine 00:00:00 [facility] Influenza Virus 2008-08-07 Completed [facility] Vaccine (3+ yrs) 00:00:00 [facility] Influenza Virus 2008-08-07 Completed [facility] Vaccine 00:00:00 [facility] Influenza Virus 2008-08-07 Completed [facility] Vaccine (3+ yrs) 00:00:00 [facility] Influenza Virus 2008-08-07 Completed [facility] Vaccine 00:00:00 [facility] Influenza Virus 2008-08-07 Completed [facility] Vaccine (3+ yrs) 00:00:00 [facility] Influenza Virus 2008-08-07 Completed [facility] Vaccine 00:00:00 [facility] Influenza Virus 2008-08-07 Completed [facility] Vaccine (3+ yrs) 00:00:00 [facility] Influenza Virus 2008-08-07 Completed [facility] Vaccine 00:00:00 [facility] Influenza Virus 2008-08-07 Completed [facility] Vaccine (3+ yrs) 00:00:00 [facility] Influenza Virus 2008-08-07 Completed [facility] Vaccine 00:00:00 [facility] Influenza Virus 2008-08-07 Completed [facility] Vaccine (3+ yrs) 00:00:00 [facility] Influenza Virus 2008-08-07 Completed [facility] Vaccine 00:00:00 [facility] Influenza Virus 2008-08-07 Completed [facility] Vaccine (3+ yrs) 00:00:00 [facility] Influenza Three-TIV 2008-08-07 Completed [facility] 00:00:00 [facility] Influenza Three-TIV 2008-08-07 Completed [facility] YR 00:00:00 [facility] Influenza Three-TIV 2008-08-07 Completed [facility] YR 00:00:00 [facility] Influenza Three-TIV 2008-08-07 Completed [facility] YR 00:00:00 [facility] Td 2006-10-25 Completed [facility] 00:00:00 [facility] Tetanus/Diptheria 2006-10-25 Completed [facility] 00:00:00 [facility] Td 2006-10-25 Completed [facility] 00:00:00 [facility] Tetanus/Diptheria 2006-10-25 Completed [facility] 00:00:00 [facility] Td 2006-10-25 Completed [facility] 00:00:00 [facility] Tetanus/Diptheria 2006-10-25 Completed [facility] 00:00:00 [facility] Td 2006-10-25 Completed [facility] 00:00:00 [facility] Tetanus/Diptheria 2006-10-25 Completed [facility] 00:00:00 [facility] Td 2006-10-25 Completed [facility] 00:00:00 [facility] Tetanus/Diptheria 2006-10-25 Completed [facility] 00:00:00 [facility] Td 2006-10-25 Completed [facility] 00:00:00 [facility] Tetanus/Diptheria 2006-10-25 Completed [facility] 00:00:00 [facility] Td 2006-10-25 Completed [facility] 00:00:00 [facility] Tetanus/Diptheria 2006-10-25 Completed [facility] 00:00:00 [facility] Td 2006-10-25 Completed [facility] 00:00:00 [facility] Tetanus/Diptheria 2006-10-25 Completed [facility] 00:00:00 [facility] Td 2006-10-25 Completed [facility] 00:00:00 [facility] Tetanus/Diptheria 2006-10-25 Completed [facility] 00:00:00 [facility] Td 2006-10-25 Completed [facility] 00:00:00 [facility] Tetanus/Diptheria 2006-10-25 Completed [facility] 00:00:00 [facility] TD, NOS 2006-10-25 Completed [facility] 00:00:00 [facility] Tetanus/Diptheria 2006-10-25 Completed [facility] 00:00:00 [facility] Td 7+ years, (TDVAX) 2006-10-[address] [facility] tetanus toxoid 00:[facility] Td 7+ years, (TDVAX) 2006-10-[address] [facility] tetanus toxoid 00:00:00 [facility] preservative free Td 7+ years, (TDVAX) 2006-10-[address] [facility] tetanus toxoid 00:00:00 [facility] preservative free Td 7+ years, (TDVAX) 2006-10-[address] [facility] tetanus toxoid 00:00:[facility] preserv[facility] free Influenza Virus 2006-09-14 Completed [facility] Vaccine 00:00:00 [facility] Influenza Virus 2006-09-14 Completed [facility] Vaccine (3+ yrs) 00:00:00 [facility] Influenza Virus 2006-09-14 Completed [facility] Vaccine 00:00:00 [facility] Influenza Virus 2006-09-14 Completed [facility] Vaccine (3+ yrs) 00:00:00 [facility] Influenza Virus 2006-09-14 Completed [facility] Vaccine 00:00:00 [facility] Influenza Virus 2006-09-14 Completed [facility] Vaccine (3+ yrs) 00:00:00 [facility] Influenza Virus 2006-09-14 Completed [facility] Vaccine 00:00:00 [facility] Influenza Virus 2006-09-14 Completed [facility] Vaccine (3+ yrs) 00:00:00 [facility] Influenza Virus 2006-09-14 Completed [facility] Vaccine 00:00:00 [facility] Influenza Virus 2006-09-14 Completed [facility] Vaccine (3+ yrs) 00:00:00 [facility] Influenza Virus 2006-09-14 Completed [facility] Vaccine 00:00:00 [facility] Influenza Virus 2006-09-14 Completed [facility] Vaccine (3+ yrs) 00:00:00 [facility] Influenza Virus 2006-09-14 Completed [facility] Vaccine 00:00:00 [facility] Influenza Virus 2006-09-14 Completed [facility] Vaccine (3+ yrs) 00:00:00 [facility] Influenza Virus 2006-09-14 Completed [facility] Vaccine 00:00:00 [facility] Influenza Virus 2006-09-14 Completed [facility] Vaccine (3+ yrs) 00:00:00 [facility] Influenza Virus 2006-09-14 Completed [facility] Vaccine 00:00:00 [facility] Influenza Virus 2006-09-14 Completed [facility] Vaccine (3+ yrs) 00:00:00 [facility] Influenza Virus 2006-09-14 Completed [facility] Vaccine 00:00:00 [facility] Influenza Virus 2006-09-14 Completed [facility] Vaccine (3+ yrs) 00:00:00 [facility] Influenza Virus 2006-09-14 Completed [facility] Vaccine 00:00:00 [facility] Influenza Virus 2006-09-14 Completed [facility] Vaccine (3+ yrs) 00:00:00 [facility] Influenza Three-TIV 2006-09-14 Completed [facility] YR 00:00:00 [facility] Influenza Three-TIV 2006-09-14 Completed [facility] 5+ YR 00:00:00 [facility] Influenza Three-TIV 2006-09-14 Completed [facility] 5+ YR 00:00:00 [facility] Influenza Three-TIV 2006-09-14 Completed [facility] 5[facility] YR 00:00:00 [facility] Influenza Virus 2005-10-02 Completed [facility] Vaccine 00:00:00 [facility] Influenza Virus 2005-10-02 Completed [facility] Vaccine (3+ yrs) 00:00:00 [facility] Influenza Virus 2005-10-02 Completed [facility] Vaccine 00:00:00 [facility] Influenza Virus 2005-10-02 Completed [facility] Vaccine (3+ yrs) 00:00:00 [facility] Influenza Virus 2005-10-02 Completed [facility] Vaccine 00:00:00 [facility] Influenza Virus 2005-10-02 Completed [facility] Vaccine (3+ yrs) 00:00:00 [facility] Influenza Virus 2005-10-02 Completed [facility] Vaccine 00:00:00 [facility] Influenza Virus 2005-10-02 Completed [facility] Vaccine (3+ yrs) 00:00:00 [facility] Influenza Virus 2005-10-02 Completed [facility] Vaccine 00:00:00 [facility] Influenza Virus 2005-10-02 Completed [facility] Vaccine (3+ yrs) 00:00:00 [facility] Influenza Virus 2005-10-02 Completed [facility] Vaccine 00:00:00 [facility] Influenza Virus 2005-10-02 Completed [facility] Vaccine (3+ yrs) 00:00:00 [facility] Influenza Virus 2005-10-02 Completed [facility] Vaccine 00:00:00 [facility] Influenza Virus 2005-10-02 Completed [facility] Vaccine (3+ yrs) 00:00:00 [facility] Influenza Virus 2005-10-02 Completed [facility] Vaccine 00:00:00 [facility] Influenza Virus 2005-10-02 Completed [facility] Vaccine (3+ yrs) 00:00:00 [facility] Influenza Virus 2005-10-02 Completed [facility] Vaccine 00:00:00 [facility] Influenza Virus 2005-10-02 Completed [facility] Vaccine (3+ yrs) 00:00:00 [facility] Influenza Virus 2005-10-02 Completed [facility] Vaccine 00:00:00 [facility] Influenza Virus 2005-10-02 Completed [facility] Vaccine (3+ yrs) 00:00:00 [facility] Influenza Virus 2005-10-02 Completed [facility] Vaccine 00:00:00 [facility] Influenza Virus 2005-10-02 Completed [facility] Vaccine (3+ yrs) 00:00:00 [facility] Influenza Three-TIV 2005-10-02 Completed [facility] YR 00:00:00 [facility] Influenza Three-TIV 2005-10-02 Completed [facility] 5+ YR 00:00:00 [facility] Influenza Three-TIV 2005-10-02 Completed [facility] 5+ YR 00:00:00 [facility] Influenza Three-TIV 2005-10-02 Completed [facility] YR 00:00:00 [facility] Influenza Virus 2003-08-30 Completed [facility] Vaccine 00:00:00 [facility] Influenza Virus 2003-08-30 Completed [facility] Vaccine (3+ yrs) 00:00:00 [facility] Influenza Virus 2003-08-30 Completed [facility] Vaccine 00:00:00 [facility] Influenza Virus 2003-08-30 Completed [facility] Vaccine (3+ yrs) 00:00:00 [facility] Influenza Virus 2003-08-30 Completed [facility] Vaccine 00:00:00 [facility] Influenza Virus 2003-08-30 Completed [facility] Vaccine (3+ yrs) 00:00:00 [facility] Influenza Virus 2003-08-30 Completed [facility] Vaccine 00:00:00 [facility] Influenza Virus 2003-08-30 Completed [facility] Vaccine (3+ yrs) 00:00:00 [facility] Influenza Virus 2003-08-30 Completed [facility] Vaccine 00:00:00 [facility] Influenza Virus 2003-08-30 Completed [facility] Vaccine (3+ yrs) 00:00:00 [facility] Influenza Virus 2003-08-30 Completed [facility] Vaccine 00:00:00 [facility] Influenza Virus 2003-08-30 Completed [facility] Vaccine (3+ yrs) 00:00:00 [facility] Influenza Virus 2003-08-30 Completed [facility] Vaccine 00:00:00 [facility] Influenza Virus 2003-08-30 Completed [facility] Vaccine (3+ yrs) 00:00:00 [facility] Influenza Virus 2003-08-30 Completed [facility] Vaccine 00:00:00 [facility] Influenza Virus 2003-08-30 Completed [facility] Vaccine (3+ yrs) 00:00:00 [facility] Influenza Virus 2003-08-30 Completed [facility] Vaccine 00:00:00 [facility] Influenza Virus 2003-08-30 Completed [facility] Vaccine (3+ yrs) 00:00:00 [facility] Influenza Virus 2003-08-30 Completed [facility] Vaccine 00:00:00 [facility] Influenza Virus 2003-08-30 Completed [facility] Vaccine (3+ yrs) 00:00:00 [facility] Influenza Virus 2003-08-30 Completed [facility] Vaccine 00:00:00 [facility] Influenza Virus 2003-08-30 Completed [facility] Vaccine (3+ yrs) 00:00:00 [facility] Influenza Three-TIV 2003-08-30 Completed [facility]:00 [facility] Influenza Three-TIV 2003-08-30 [facility] Influ[facility] Three-TIV 2003-08-30 Com[facility]R [facility]:00[facility]00 [facility] Influenza Three-TIV 2003-08-30 Completed [facility] YR 00:00:00 [facility] DTAP 1997-06-18 Completed [facility] 00:00:00 [facility] MMR 1997-06-18 Completed [facility] 00:00:00 [facility] OPV 1997-06-18 Completed [facility] 00:00:00 [facility] Polio (IPV/OPV) 1997-06-18 Completed [facility] 00:00:00 [facility] DTAP 1997-06-18 Completed [facility] 00:00:00 [facility] MMR 1997-06-18 Completed [facility] 00:00:00 [facility] OPV 1997-06-18 Completed [facility] 00:00:00 [facility] Polio (IPV/OPV) 1997-06-18 Completed [facility] 00:00:00 [facility] DTAP 1997-06-18 Completed [facility] 00:00:00 [facility] MMR 1997-06-18 Completed [facility] 00:00:00 [facility] OPV 1997-06-18 Completed [facility] 00:00:00 [facility] Polio (IPV/OPV) 1997-06-18 Completed [facility] 00:00:00 [facility] DTAP 1997-06-18 Completed [facility] 00:00:00 [facility] MMR 1997-06-18 Completed [facility] 00:00:00 [facility] OPV 1997-06-18 Completed [facility] 00:00:00 [facility] Polio (IPV/OPV) 1997-06-18 Completed [facility] 00:00:00 [facility] DTAP 1997-06-18 Completed [facility] 00:00:00 [facility] MMR 1997-06-18 Completed [facility] 00:00:00 [facility] OPV 1997-06-18 Completed [facility] 00:00:00 [facility] Polio (IPV/OPV) 1997-06-18 Completed [facility] 00:00:00 [facility] DTAP 1997-06-18 Completed [facility] 00:00:00 [facility] MMR 1997-06-18 Completed [facility] 00:00:00 [facility] OPV 1997-06-18 Completed [facility] 00:00:00 [facility] Polio (IPV/OPV) 1997-06-18 Completed [facility] 00:00:00 [facility] DTAP 1997-06-18 Completed [facility] 00:00:00 [facility] MMR 1997-06-18 Completed [facility] 00:00:00 [facility] OPV 1997-06-18 Completed [facility] 00:00:00 [facility] Polio (IPV/OPV) 1997-06-18 Completed [facility] 00:00:00 [facility] DTAP 1997-06-18 Completed [facility] 00:00:00 [facility] MMR 1997-06-18 Completed [facility] 00:00:00 [facility] OPV 1997-06-18 Completed [facility] 00:00:00 [facility] Polio (IPV/OPV) 1997-06-18 Completed [facility] 00:00:00 [facility] DTAP 1997-06-18 Completed [facility] 00:00:00 [facility] MMR 1997-06-18 Completed [facility] 00:00:00 [facility] OPV 1997-06-18 Completed [facility] 00:00:00 [facility] Polio (IPV/OPV) 1997-06-18 Completed [facility] 00:00:00 [facility] DTAP 1997-06-18 Completed [facility] 00:00:00 [facility] MMR 1997-06-18 Completed [facility] 00:00:00 [facility] OPV 1997-06-18 Completed [facility] 00:00:00 [facility] Polio (IPV/OPV) 1997-06-18 Completed [facility] 00:00:00 [facility] DTAP 1997-06-18 Completed [facility] 00:00:00 [facility] MMR 1997-06-18 Completed [facility] 00:00:00 [facility] OPV 1997-06-18 Completed [facility] 00:00:00 [facility] Polio (IPV/OPV) 1997-06-18 Completed [facility] 00:00:00 [facility] DTaP 1997-06-[address] [facility] 00:00:00 [facility] MMR 1997-06-[address] [facility] 00:00:00 [facility] [place] OPV 1997-06-[address] [facility] 00:00:00 [facility] DTaP 1997-06-[address] [facility] 00:00[facility]00 [facility] 1997-06-[address] [facility] 00[facility]00:00 [facility] OPV 1997-06-[address] [facility] 00:00:00 [facility] DT 1997-06-[address] [facility] 00:00:00 [facility] 1997-06-[address] [facility] 00:00:00 [facility] OP 1997-06-[address] [facility] 00:00:00 [facility] DTaP 1997-06-[address] [facility] 00:00:00 [facility] 1997-06-[address] [facility] 00[facility]00:00 [facility] OP 1997-06-[address] [facility] 00[facility]00:00 [facility] Vital Signs Vital Name Observation Time Observation Value Comments Source Systolic blood 2022-10-14 13:52:00 122 mm[Hg] [facility] Diastolic blood 2022-10-14 13:52:00 81 mm[Hg] [facility] Heart rate 2022-10-14 13:51:00 100 /min [facility] Body temperature 2022-10-14 13:51:00 37.11 [facility] Body height 2022-10-14 13:51:00 154.9 cm [facility] Body weight 2022-10-14 13:51:00 44.316 kg [facility] BMI 2022-10-14 13:51:00 18.46 kg/m2 [facility] Oxygen saturation in 2022-10-14 13:51:00 98 /min [facility] Arterial blood by [facility] Pulse oximetry Branch Systolic blood 2022-08-31 19:58:00 122 mm[Hg] [facility] Diastolic blood 2022-08-31 19:58:00 80 mm[Hg] [facility] Heart rate 2022-08-31 19:58:00 96 /min [facility] Body temperature 2022-08-31 19:58:00 36.94 [facility] 2022-08-31 19:58:00 17 /min [facility] Body height 2022-08-31 19:58:00 154.9 cm [facility] Body weight 2022-08-31 19:58:00 45.088 kg [facility] BMI 2022-08-31 19:58:00 18.78 kg/m2 [facility] HEIGHT 2022-08-13 22:22:00 154.9 cm WEIGHT 2022-08-13 22:22:00 43.092 kg HEIGHT 2022-08-13 22:22:00 154.9 cm WEIGHT 2022-08-13 22:22:00 43.092 kg HEIGHT 2022-08-13 22:22:00 154.9 cm WEIGHT 2022-08-13 22:22:00 43.092 kg Systolic blood 2022-08-12 21:41:00 119 mm[Hg] [facility] Medicine Diastolic blood 2022-08-12 21:41:00 80 mm[Hg] [facility] Medicine Heart rate 2022-08-12 21:41:00 110 /min [facility] Body temperature 2022-08-12 21:41:00 37.39 [facility] Respiratory rate 2022-08-12 21:41:00 18 /min [facility] Body height 2022-08-12 21:41:00 154.9 cm [facility] Body weight 2022-08-12 21:41:00 42.638 kg [facility] BMI 2022-08-12 21:41:00 17.76 kg/m2 [facility] Heart rate 2022-06-19 20:58:00 96 /min [facility] Systolic blood 2022-06-19 20:35:00 110 mm[Hg] [facility] pressure [facility] Diastolic blood 2022-06-19 20:35:00 75 mm[Hg] Unive [facility]ity of pressure [facility] Body temperature 2022-06-19 20:35:00 37 Monica [facility] Body height 2022-06-19 20:35:00 154.9 cm [facility] Body weight 2022-06-19 20:35:00 47.537 kg [facility] BMI 2022-06-19 20:35:00 19.80 kg/m2 [facility] Oxygen saturation in 2022-06-19 20:35:00 97 /min [facility] Arterial blood by [facility] Pulse oximetry Branch Systolic blood 2022-05-06 15:38:00 126 mm[Hg] [facility] pressure Medicine Diastolic blood 2022-05-06 15:38:00 76 mm[Hg] [facility] pressure Medicine Heart rate 2022-05-06 15:38:00 110 /min [facility] Body height 2022-05-06 15:38:00 154.9 cm [facility] Body weight 2022-05-06 15:38:00 49.533 kg [facility] BMI 2022-05-06 15:38:00 20.63 kg/m2 [facility] Systolic blood 2022-04-30 15:15:00 134 mm[Hg] [facility] of pressure Medicine Diastolic blood 2022-04-30 15:15:00 85 mm[Hg] [facility] pressure Medicine Heart rate 2022-04-30 15:15:00 107 /min [facility] Body temperature 2022-04-30 15:15:00 36.44 [facility] Respiratory rate 2022-04-30 15:15:00 18 /min [facility] Body height 2022-04-30 15:15:00 157.3 cm [facility] Body weight 2022-04-30 15:15:00 47.9 [facility] BMI 2022-04-30 15:15:00 19.36 kg/m2 [facility] Systolic blood 2021-12-15 16:34:00 123 mm[Hg] [facility] of pressure Medicine Diastolic blood 2021-12-15 16:34:00 86 mm[Hg] [facility] pressure Medicine Heart rate 2021-12-15 16:34:00 114 /min [facility] Body temperature 2021-12-15 16:34:00 37.17 [facility] Respiratory rate 2021-12-15 16:34:00 20 /min [facility] Body height 2021-12-15 16:34:00 157.3 cm [facility] Body weight 2021-12-15 16:34:00 48.716 kg [facility] BMI 2021-12-15 16:34:00 19.69 kg/m2 [facility] Systolic blood 2021-01-06 16:07:00 144 mm[Hg] [facility] pressure Medicine Diastolic blood 2021-01-06 16:07:00 93 mm[Hg] [facility] Medicine Heart rate 2021-01-06 16:07:00 114 /min [facility] Body temperature 2021-01-06 16:07:00 37.5 [facility] Respiratory rate 2021-01-06 16:07:00 18 /min [facility] Body height 2021-01-06 16:07:00 157.3 cm [facility] Body weight 2021-01-06 16:07:00 47.854 kg [facility] BMI 2021-01-06 16:07:00 19.34 kg/m2 [facility] Systolic blood 2019-12-21 15:41:00 95 mm[Hg] [facility] Medicine Diastolic blood 2019-12-21 15:41:00 67 mm[Hg] [facility] Medicine Heart rate 2019-12-21 15:41:00 110 /min [facility] Body temperature 2019-12-21 15:41:00 36.78 [facility] Respiratory rate 2019-12-21 15:41:00 18 /min [facility] Body height 2019-12-21 15:41:00 154.9 cm [facility] Body weight 2019-12-21 15:41:00 49.533 kg [facility] BMI 2019-12-21 15:41:00 20.63 kg/m2 [facility] Systolic blood 2019-12-21 15:41:00 95 mm[Hg] [facility] pressure Medicine Diastolic blood 2019-12-21 15:41:00 67 mm[Hg] [facility] pressure Medicine Heart rate 2019-12-21 15:41:00 110 /min [facility] Body temperature 2019-12-21 15:41:00 36.78 [facility] Respiratory rate 2019-12-21 15:41:00 18 /min [facility] Body height 2019-12-21 15:41:00 154.9 cm [facility] Body weight 2019-12-21 15:41:00 49.533 kg [facility] BMI 2019-12-21 15:41:00 20.63 kg/m2 [facility] Systolic blood 2019-08-29 19:18:00 141 mm[Hg] [facility] of pressure Medicine Diastolic blood 2019-08-29 19:18:00 95 mm[Hg] [facility] Medicine Heart rate 2019-08-29 19:18:00 130 /min [facility] Body temperature 2019-08-29 19:18:00 36.83 [facility] Respiratory rate 2019-08-29 19:18:00 18 /min [facility] Body height 2019-08-29 19:18:00 154.9 cm [facility] Body weight 2019-08-29 19:18:00 50.168 kg [facility] BMI 2019-08-29 19:18:00 20.90 kg/m2 [facility] Systolic blood 2019-08-29 19:18:00 141 mm[Hg] [facility] pressure Medicine Diastolic blood 2019-08-29 19:18:00 95 mm[Hg] [facility] pressure Medicine Heart rate 2019-08-29 19:18:00 130 /min [facility] Body temperature 2019-08-29 19:18:00 36.83 [facility] Respiratory rate 2019-08-29 19:18:00 18 /min [facility] Body height 2019-08-29 19:18:00 154.9 cm [facility] Body weight 2019-08-29 19:18:00 50.168 kg [facility] BMI 2019-08-29 19:18:00 20.90 kg/m2 [facility] Systolic blood 2019-08-24 13:09:00 140 mm[Hg] [facility] pressure Medicine Diastolic blood 2019-08-24 13:09:00 102 mm[Hg] [facility] pressure Medicine Heart rate 2019-08-24 13:09:00 131 /min [facility] Body height 2019-08-24 13:09:00 154.9 cm [facility] Body weight 2019-08-24 13:09:00 49.079 kg [facility] BMI 2019-08-24 13:09:00 20.44 kg/m2 [facility] Systolic blood 2019-08-24 13:09:00 140 mm[Hg] [facility] pressure Medicine Diastolic blood 2019-08-24 13:09:00 102 mm[Hg] [facility] pressure Medicine Heart rate 2019-08-24 13:09:00 131 /min [facility] Body height 2019-08-24 13:09:00 154.9 cm [facility] Body weight 2019-08-24 13:09:00 49.079 kg [facility] BMI 2019-08-24 13:09:00 20.44 kg/m2 [facility] Systolic blood 2019-08-16 17:59:00 98 mm[Hg] [facility] pressure Medicine Diastolic blood 2019-08-16 17:59:00 62 mm[Hg] [facility] of pressure Medicine Heart rate 2019-08-16 17:59:00 120 /min [facility] Body height 2019-08-16 17:59:00 154.9 cm [facility] Body weight 2019-08-16 17:59:00 52.164 kg [facility] BMI 2019-08-16 17:59:00 21.73 kg/m2 [facility] Systolic blood 2019-08-16 17:59:00 98 mm[Hg] [facility] pressure Medicine Diastolic blood 2019-08-16 17:59:00 62 mm[Hg] [facility] pressure Medicine Heart rate 2019-08-16 17:59:00 120 /min [facility] Body height 2019-08-16 17:59:00 154.9 cm [facility] Body weight 2019-08-16 17:59:00 52.164 kg [facility] BMI 2019-08-16 17:59:00 21.73 kg/m2 [facility] Systolic blood 2019-08-02 19:56:00 112 mm[Hg] [facility] pressure Medicine Diastolic blood 2019-08-02 19:56:00 62 mm[Hg] [facility] Medicine Heart rate 2019-08-02 19:56:00 82 /min [facility] Body height 2019-08-02 19:56:00 154.9 cm [facility] Body weight 2019-08-02 19:56:00 50.349 kg [facility] BMI 2019-08-02 19:56:00 20.97 kg/m2 [facility] Systolic blood 2019-08-02 19:56:00 112 mm[Hg] [facility] pressure Medicine Diastolic blood 2019-08-02 19:56:00 62 mm[Hg] [facility] Medicine Heart rate 2019-08-02 19:56:00 82 /min [facility] Body height 2019-08-02 19:56:00 154.9 cm [facility] Body weight 2019-08-02 19:56:00 50.349 kg [facility] BMI 2019-08-02 19:56:00 20.97 kg/m2 [facility] Systolic blood 2019-07-24 14:32:00 136 mm[Hg] [facility] pressure Medicine Diastolic blood 2019-07-24 14:32:00 84 mm[Hg] [facility] Medicine Heart rate 2019-07-24 14:32:00 118 /min [facility] Body temperature 2019-07-24 14:32:00 36.89 [facility] Respiratory rate 2019-07-24 14:32:00 16 /min [facility] Body height 2019-07-24 14:32:00 154.9 cm [facility] Body weight 2019-07-24 14:32:00 49.986 kg [facility] BMI 2019-07-24 14:32:00 20.82 kg/m2 [facility] Oxygen saturation in 2019-07-24 14:32:00 94 /min [facility] of Arterial blood by Medicine Pulse oximetry Systolic blood 2019-07-24 14:32:00 136 mm[Hg] [facility] pressure Medicine Diastolic blood 2019-07-24 14:32:00 84 mm[Hg] [facility] pressure Medicine Heart rate 2019-07-24 14:32:00 118 /min [facility] Body temperature 2019-07-24 14:32:00 36.89 [facility] Respiratory rate 2019-07-24 14:32:00 16 /min [facility] Body height 2019-07-24 14:32:00 154.9 cm [facility] Body weight 2019-07-24 14:32:00 49.986 kg [facility] BMI 2019-07-24 14:32:00 20.82 kg/m2 [facility] Oxygen saturation in 2019-07-24 14:32:00 94 /min [facility] of Arterial blood by Medicine Pulse oximetry Systolic blood 2019-07-18 18:28:00 136 mm[Hg] [facility] pressure Medicine Diastolic blood 2019-07-18 18:28:00 90 mm[Hg] [facility] pressure Medicine Heart rate 2019-07-18 18:28:00 125 /min [facility] Body temperature 2019-07-18 18:28:00 36.94 [facility] Respiratory rate 2019-07-18 18:28:00 16 /min [facility] Body height 2019-07-18 18:28:00 154.9 cm [facility] Body weight 2019-07-18 18:28:00 48.988 kg [facility] BMI 2019-07-18 18:28:00 20.41 kg/m2 [facility] Systolic blood 2019-07-18 18:28:00 136 mm[Hg] [facility] pressure Medicine Diastolic blood 2019-07-18 18:28:00 90 mm[Hg] [facility] pressure Medicine Heart rate 2019-07-18 18:28:00 125 /min [facility] Body temperature 2019-07-18 18:28:00 36.94 Monica [facility] Respiratory rate 2019-07-18 18:28:00 16 /min [facility] Body height 2019-07-18 18:28:00 154.9 cm [facility] Body weight 2019-07-18 18:28:00 48.988 [facility] BMI 2019-07-18 18:28:00 20.41 kg/m2 [facility] Systolic blood 2019-05-19 16:16:00 132 mm[Hg] [facility] pressure Medicine Diastolic blood 2019-05-19 16:16:00 94 mm[Hg] [facility] Medicine Heart rate 2019-05-19 16:16:00 124 /min [facility] Body temperature 2019-05-19 16:16:00 37 Monica [facility] Respiratory rate 2019-05-19 16:16:00 16 /min [facility] Body height 2019-05-19 16:16:00 154.9 cm [facility] Body weight 2019-05-19 16:16:00 46.902 kg [facility] BMI 2019-05-19 16:16:00 19.54 kg/m2 [facility] Systolic blood 2019-05-19 16:16:00 132 mm[Hg] [facility] pressure Medicine Diastolic blood 2019-05-19 16:16:00 94 mm[Hg] [facility] pressure Medicine Heart rate 2019-05-19 16:16:00 124 /min [facility] Body temperature 2019-05-19 16:16:00 37 Monica [facility] Respiratory rate 2019-05-19 16:16:00 16 /min [facility] Body height 2019-05-19 16:16:00 154.9 cm [facility] Body weight 2019-05-19 16:16:00 46.902 kg [facility] BMI 2019-05-19 16:16:00 19.54 kg/m2 [facility] Systolic blood 2015-05-07 14:07:00 102 mm[Hg] [facility] pressure Medicine Diastolic blood 2015-05-07 14:07:00 62 mm[Hg] [facility] Medicine Heart rate 2015-05-07 14:07:00 116 /min [facility] Body temperature 2015-05-07 14:07:00 37.11 Monica [facility] Respiratory rate 2015-05-07 14:07:00 20 /min [facility] Body height 2015-05-07 14:07:00 157.5 cm [facility] Body weight 2015-05-07 14:07:00 43.545 kg [facility] BMI 2015-05-07 14:07:00 17.56 kg/m2 [facility] Systolic blood 2015-05-07 14:07:00 102 mm[Hg] [facility] Medicine Diastolic blood 2015-05-07 14:07:00 62 mm[Hg] [facility] Medicine Heart rate 2015-05-07 14:07:00 116 /min [facility] Body temperature 2015-05-07 14:07:00 37.11 Monica [facility] Respiratory rate 2015-05-07 14:07:00 20 /min [facility] Body height 2015-05-07 14:07:00 157.5 cm [facility] Body weight 2015-05-07 14:07:00 43.545 kg [facility] BMI 2015-05-07 14:07:00 17.56 kg/m2 [facility] Systolic blood 2022-08-19 15:59:00 129 mm[Hg] [facility] Diastolic blood 2022-08-19 15:59:00 74 mm[Hg] [facility] Heart rate 2022-08-19 15:59:00 113 /min [facility] Body temperature 2022-08-19 15:59:00 35.56 [facility] Respiratory rate 2022-08-19 15:59:00 18 /min [facility] Oxygen saturation in 2022-08-19 15:59:00 96 /min [facility] Arterial blood by [facility] Pulse oximetry Body height 2022-08-13 22:22:00 154.9 cm [facility] Body weight 2022-08-13 22:22:00 43.092 kg [facility] BMI 2022-08-13 22:22:00 17.95 kg/m2 [facility] Systolic blood 2022-05-02 05:20:00 138 mm[Hg] [facility] Diastolic blood 2022-05-02 05:20:00 86 mm[Hg] [facility] Heart rate 2022-05-02 05:20:00 92 /min [facility] Body temperature 2022-05-02 05:20:00 36.67 Mon[facility] Respiratory rate 2022-05-02 05:20:00 17 /min [facility] Oxygen saturation in 2022-05-02 05:20:00 100 /min [facility] Arterial blood by [facility] Pulse oximetry Procedures Procedure Date / Time Performing Clinician Source Performed (SCN) SCANNED ORDER 2022-11-18 00:00:00 [facility] POCT TEST 2022-08-31 20:04:[facility] 2022-08-31 06:01:00 Doctor Unassigned, [facility] POCT-GLUCOSE METER 2022-08-19 17:28:00 Arely Leos [facility] POCT-GLUCOSE METER 2022-08-19 11:42:00 [facility] POCT-GLUCOSE METER 2022-08-19 07:54:00 Jocelyn Eller [facility] POCT-GLUCOSE METER 2022-08-19 07:25:00 DaphnieKaydenblackstone D [facility] CBC W/PLT COUNT & AUTO 2022-08-19 05:50:00 [facility] 2022-08-19 05:50[facility]00 [facility]O 2022-08-19 05:50:00 DaphnieKaydenblackstone [facility] POCT-GLUCOSE METER 2022-08-18 22:21:00 [facility] 2022-08-18 14:53:00 Daphnie, [facility] POCT-GLUCOSE METER 2022-08-18 11:54:00 [facility]SE MET[facility] 2022-08-18 07:26:00 [facility] & AUTO 2022-08-18 03:34:00 [facility]IC MET[facility]OLIC PANEL 2022-08-18 03:34:00 [facility] W[facility]T COUNT & AUTO 2022-08-18 03:34:00 [facility] POCT-GLUCOSE METER 2022-08-18 03:29:00 Daphnie, Kaydenblackstone D [facility] POCT-GLUCOSE METER 2022-08-17 17:22:00 Daphnie [facility] POCT-GLUCOSE METER 2022-08-17 13:20:00 Daphnie, [facility] POCT-GLUCOSE METER 2022-08-17 12:50:00 Daphnie, [facility] POCT-GLUCOSE METER 2022-08-17 07:33:00 Daphnie, [facility] CBC W/PLT COUNT & AUTO 2022-08-17 04:57:00 Daphnie, Yashash D [facility] BASIC METABOLIC PANEL 2022-08-17 04:57:00 Daphnie Kaydenblackstone Jose David [facility] CBC W/PLT COUNT & AUTO 2022-08-17 04:57:00 DaphnieKaydenblackstone [facility] POCT-GLUCOSE METER 2022-08-16 21:57:00 [facility] POCT-GLUCOSE METER 2022-08-16 18:06:00 Daphnie Kaydenblackstone Jose [facility] POCT-GLUCOSE METER 2022-08-16 12:51:00 [facility] PO[facility]UCOSE METER 2022-08-16 07:57:00 [facility] CBC W/PLT COUNT & AUTO 2022-08-16 05:16:00 [facility] BASIC METABOLIC PANEL 2022-08-16 05:16:00 [facility] CBC W/PLT COUNT & AUTO 2022-08-16 05:16:00 [facility] POCT-GLUCOSE METER 2022-08-15 23:02:00 [facility] POCT-GLUCOSE METER 2022-08-15 20:17:00 [facility] POCT-GLUCOSE METER 2022-08-15 18:41:00 Daphnie Kaydenblackstone Jose [facility] POCT-GLUCOSE METER 2022-08-15 16:59:00 Daphnie, [facility] POCT-GLUCOSE METER 2022-08-15 14:10:00 [facility] POCT-GLUCOSE METER 2022-08-15 12:48:00 [facility] POCT-GLUCOSE METER 2022-08-15 12:12:00 Daphnie [facility] POCT-GLUCOSE METER 2022-08-15 07:18:00 Daphnie YaMore[facility] [facility] W/PLT COUNT & AUTO 2022-08-15 05:09:00 [facility] BASIC METABOLIC PANEL 2022-08-15 05:09:00 [facility] CBC W/PLT COUNT & AUTO 2022-08-15 05:09:00 [facility] POCT-GLUCOSE METER 2022-08-15 05:04:00 [facility] POCT-GLUCOSE METER 2022-08-14 23:56:00 [facility] POCT-GLUCOSE METER 2022-08-14 21:09:00 [facility] POCT-GLUCOSE METER 2022-08-14 18:53:00 [facility] POCT-GLUCOSE METER 2022-08-14 17:49:00 [facility] POCT-GLUCOSE METER 2022-08-14 11:15:00 Crystal Germain [facility] POCT-GLUCOSE METER 2022-08-14 10:55:00 Crystal Germain [facility] POCT-GLUCOSE METER 2022-08-14 07:35:00 Crystal Germain [facility] POCT-GLUCOSE METER 2022-08-13 22:02:00 Crystal Germain [facility] RESPIRATORY PANEL 2022-08-13 16:10:00 [facility] PO[facility]SE METER 2022-08-13 15:58:00 Crystal Germain [facility] POCT-GLUCOSE METER 2022-08-13 10:49:00 Crystal Germain [facility] XR CHEST PA OR AP 1 VIEW 2022-08-13 09:39:00 Zaid Morgna I [facility] IN DEPT Center SPUTUM CULTURE + GRAM 2022-08-13 07:40:00 Shelly Mayorga [facility] STAIN Center BLOOD CULTURE 2022-08-12 23:30:00 [facility] BLOOD CULTURE 2022-08-12 23:30:00 Crystal Germain [facility] IDENTIFICATION PANEL Center FUNGAL CULTURE 2022-08-12 17:05:08 [facility] ACID FAST CULTURE 2022-08-12 17:05:08 [facility] CULTURE, RESPIRATORY, 2022-08-12 17:05:08 [facility] CYSTIC FIBROSIS Medicine HEMOGLOBIN A1C 2022-08-12 16:58:30 [facility] SPIN/CONCENTRATION CHARGE 2022-08-12 12:34:00 Marco Smith [facility] [employer] CULTURE + SMEAR 2022-08-12 12:34:00 Marco Smith [facility] (SPUTUM ONLY) Center PERMANENT LAB REPORT - 2022-08-12 00:00:00 Provider, Aditya [facility] SCAN Scanning Center POCT REAGENT STP/BLD 2022-05-06 15:44:00 Jenny Bliss [facility] VITAMIN D 25 HYDROXY 2022-05-06 12:43:30 [facility] POCT REAGENT STP/BLD 2022-05-06 10:44:00 [facility] of GLUCOSE Medicine POCT-GLUCOSE METER 2022-05-02 02:54:00 Rosa M Montejo [facility] BASIC METABOLIC PANEL 2022-05-02 02:51:00 Christian Coleman [facility] KETONE, BLOOD 2022-05-02 02:51:00 Christian Coleman [facility] HCG, QUANTITATIVE, 2022-05-02 02:51:00 [facility] POCT-GLUCOSE METER 2022-05-01 21:35:00 [facility] POCT-GLUCOSE METER 2022-05-01 21:13:00 [facility] POCT-GLUCOSE METER 2022-05-01 20:44:00 [facility] POCT-GLUCOSE METER 2022-05-01 20:25:00 [facility] XR CHEST 2 VIEWS 2022-04-30 13:52:00 Chino Waller [facility] XR DXA BONE DENSITY STUDY 2022-04-30 13:43:00 Chino Waller [facility] [employer] CULTURE + SMEAR 2022-04-30 11:20:00 Chino Waller [facility] (SPUTUM ONLY) [place] CF RESPIRATORY CULTURE 2022-04-30 11:20:00 Chino Waller [facility] SPIN/CONCENTRATION CHARGE 2022-04-30 11:20:00 Chino Waller [facility] FUNGAL CULTURE 2022-04-30 10:35:33 [facility] ACID FAST CULTURE 2022-04-30 10:35:33 [facility] CULTURE, RESPIRATORY, 2022-04-30 10:35:33 [facility] CYSTIC FIBROSIS Medicine CBC W/AUTO DIFF WITH 2022-04-30 10:34:00 [facility] COMPREHENSIVE METABOLIC 2022-04-30 10:34:00 [facility] PROTIME-INR 2022-04-30 10:34:00 [facility] VITAMIN A 2022-04-30 10:34:00 [facility] VITAMIN D 25 HYDROXY 2022-04-30 10:34:00 [facility] VITAMIN E 2022-04-30 10:34:00 [facility] HEMOGLOBIN A1C 2022-04-30 10:34:00 [facility] LIPID PANEL 2022-04-30 10:34:00 [facility] IGE 2022-04-30 10:34:00 [facility] TSH 2022-04-30 10:34:00 [facility] COMPREHENSIVE METABOLIC 2022-04-30 10:27:53 [facility] PROTIME-INR 2022-04-30 10:27:53 [facility] VITAMIN A 2022-04-30 10:27:53 [facility] VITAMIN D 25 HYDROXY 2022-04-30 10:27:53 [facility] VITAMIN E 2022-04-30 10:27:53 [facility] HEMOGLOBIN A1C 2022-04-30 10:27:53 [facility] LIPID PANEL 2022-04-30 10:27:53 [facility] IGE 2022-04-30 10:27:53 [facility] TSH 2022-04-30 10:27:53 [facility] CBC W/AUTO DIFF WITH 2022-04-30 10:27:52 [facility] SPIROMETRY (IN CLINIC) 2022-04-30 00:00:00 [facility] SPIROMETRY (IN CLINIC) 2022-04-30 00:00:00 [facility] SPIROMETRY (IN CLINIC) 2021-12-15 16:37:00 [facility] CF RESPIRATORY CULTURE 2021-12-15 14:35:00 [facility] [employer] CULTURE + SMEAR 2021-12-15 14:35:00 [facility] (SPUTUM ONLY) [place] FUNGUS CULTURE + SMEAR 2021-12-15 14:35:00 [facility] SPIN/CONCENTRATION CHARGE 2021-12-15 14:35:00 [facility] SPIROMETRY (IN CLINIC) 2021-01-06 16:23:00 Marco Smith [facility] SPIROMETRY (IN CLINIC) 2019-12-21 00:00:00 Tere Diaz [facility] SPIROMETRY (IN CLINIC) 2019-08-29 00:00:00 Tere Diaz [facility] POCT REAGENT STP/BLD 2019-08-16 08:00:00 Jenny Bliss [facility] POCT KETONE, BLOOD 2019-08-02 20:19:00 Jenny Bliss [facility] POCT REAGENT STP/BLD 2019-08-02 20:10:00 Jenny Bliss [facility] SPIROMETRY (IN CLINIC) 2019-07-18 18:39:00 Chino Waller [facility] SPIROMETRY (IN CLINIC) 2015-06-14 21:42:43 Marco Smith [facility] Plan of Care Planned Activity Planned Date Details Comments Source Future Scheduled 2028-01-13 DTAP/TDAP/TD [facility]:00 VACCINES (4 - Td or Medical Center Tdap) [code = DTAP/TDAP/TD VACCINES (4 - Td or Tdap)] Future Scheduled 2028-01-13 DTAP/TDAP/TD [facility] 00:00:00 VACCINES (4 - Td or Medical Center Tdap) [code = DTAP/TDAP/TD VACCINES (4 - Td or Tdap)] Future Scheduled 2028-01-13 DTAP/TDAP/TD [facility] 00:00:00 VACCINES (4 - Td or Medical Center Tdap) [code = DTAP/TDAP/TD VACCINES (4 - Td or Tdap)] Future Scheduled 2028-01-13 DTAP/TDAP/TD [facility] Test 00:00:00 VACCINES (4 - Td or Medical Center Tdap) [code = DTAP/TDAP/TD VACCINES (4 - Td or Tdap)] Future Scheduled 2025-04-[address] [facility] Test 00:00:00 (procedure) [code = [facility] 86987930] Future Scheduled 2023-12-[address] [facility] 00:00:00 malignant neoplasm Medical C enter of cervix (procedure) [code = 745653103] Future Scheduled 2023-12-[address] [facility] Test 00:00:00 malignant neoplasm Medical C enter of cervix (procedure) [code = 804873291] Future Scheduled 2023-12-[address] [facility] Test 00:00:00 malignant neoplasm Medical C enter of cervix (procedure) [code = 976290975] Future Scheduled 2023-12-[address] [facility] Test 00:00:00 malignant neoplasm Medical C enter of cervix (procedure) [code = 918129614] Future Scheduled 2023-05-[address] [facility] Test 00:00:00 [facility] r Screening (12+) [code = Tobacco Cessation Counseling and Screening (12+)] Future Scheduled 2022-10-[address] [facility] Test 00:00:00 (12+) [code = Medical Center DEPRESSION SCREENING (12+)] Future Scheduled 2022-08-12 Pneumococcal [facility] [employer] Test 17:47:19 Combined (1 - PCV) of Medici ne [code = Pneumococcal Combined (1 - PCV)] Future Scheduled 2022-08-12 BMI FOLLOW UP PLAN [facility] Test 17:47:19 [code = BMI FOLLOW of Medici ne UP PLAN] Future Scheduled 2022-08-12 COVID-19 Vaccine (3 [employer] Test 17:47:19 - Booster for Pfizer of Medi cine series) [code = COVID-19 Vaccine (3 - Booster for Pfizer series)] Future Scheduled 2022-08-12 Screening for [facility] Test 17:47:19 malignant neoplasm of Medici ne of cervix (procedure) [code = 597368132] Future Scheduled 2022-08-12 FLU VACCINE > 6 [facility] Test 17:47:19 MONTHS [code = FLU of Medici ne VACCINE > 6 MONTHS] Future Scheduled 2022-08-12 TETANUS SHOT (ADULT) [facility] Test 17:47:19 [code = TETANUS SHOT of Medi cine (ADULT)] Future Scheduled 2022-08-12 FUNGAL CULTURE [code Ordered: [facility] Test 17:05:08 = 601-5] 08/12/2022 of Medicine Future Scheduled 2022-08-12 ACID FAST CULTURE Ordered: [facility] Test 17:05:08 [code = 543-9] 08/12/2022 of Medicine Future Scheduled 2022-08-12 CULTURE, Ordered: [facility] Test 17:05:08 RESPIRATORY, CYSTIC 08/12/2022 of Medic ine FIBROSIS [code = NOCPT] Future Scheduled 2022-08-12 HEMOGLOBIN A1C [code Ordered: [facility] Test 16:58:30 = 4548-4] 08/12/2022 of Medicine Future Scheduled 2022-06-[address] [facility] Test 00:00:00 (#1) [code = Medical Center INFLUENZA VACCINE (#1)] Future Scheduled 2022-06-[address] [facility] Test 00:00:00 (#1) [code = Medical Center INFLUENZA VACCINE (#1)] Future Scheduled 2022-06-[address] [facility] Test 00:00:00 (#1) [code = Medical Center INFLUENZA VACCINE (#1)] Future Scheduled 2022-06-[address] [facility] Test 00:00:00 (#1) [code = Medical Center INFLUENZA VACCINE (#1)] Future Scheduled 2022-05-06 Pneumococcal [facility] Test 13:28:04 Combined (1 - PCV) of Medici ne [code = Pneumococcal Combined (1 - PCV)] Future Scheduled 2022-05-06 COVID-19 Vaccine (3 [employer] Test 13:28:04 - Booster for Pfizer of Medi cine series) [code = COVID-19 Vaccine (3 - Booster for Pfizer series)] Future Scheduled 2022-05-06 Screening for [facility] Test 13:28:04 malignant neoplasm of Medici ne of cervix (procedure) [code = 195973887] Future Scheduled 2022-05-06 FLU VACCINE > 6 [facility] Test 13:28:04 MONTHS [code = FLU of Medici ne VACCINE > 6 MONTHS] Future Scheduled 2022-05-06 TETANUS SHOT (ADULT) [facility] Test 13:28:04 [code = TETANUS SHOT of Medi cine (ADULT)] Future Scheduled 2022-05-06 VITAMIN D 25 HYDROXY Ordered: [facility] Test 12:43:30 [code = 1988-3] 05/06/2022 of Medicine Future Scheduled 2022-04-30 Pneumococcal [facility] Test 14:16:23 Combined (1 - PCV) of Medici ne [code = Pneumococcal Combined (1 - PCV)] Future Scheduled 2022-04-30 COVID-19 Vaccine (3 [employer] Test 14:16:23 - Booster for Pfizer of Medi cine series) [code = COVID-19 Vaccine (3 - Booster for Pfizer series)] Future Scheduled 2022-04-30 Screening for [facility] Test 14:16:23 malignant neoplasm of Medici ne of cervix (procedure) [code = 217216192] Future Scheduled 2022-04-30 FLU VACCINE > 6 [facility] Test 14:16:23 MONTHS [code = FLU of Medici ne VACCINE > 6 MONTHS] Future Scheduled 2022-04-30 TETANUS SHOT (ADULT) [facility] Test 14:16:23 [code = TETANUS SHOT of Medi cine (ADULT)] Future Scheduled 2022-04-30 XR CHEST PA AND 1 Occurrences [facility] Test 11:15:45 LATERAL [code = starting of Medicine 08561-5] 04/30/2022 until 04/30/2023 Future Scheduled 2022-04-30 DEXA BONE DENSITY 1 Occurrences [facility] Test 11:15:45 SPINE AND HIP [code starting of Medic ine = 31570] 04/30/2022 until 04/30/2023 Future Scheduled 2022-04-30 FUNGAL CULTURE [code Ordered: [facility] Test 10:35:33 = 601-5] 04/30/2022 of Medicine Future Scheduled 2022-04-30 ACID FAST CULTURE Ordered: [facility] Test 10:35:33 [code = 543-9] 04/30/2022 of Medicine Future Scheduled 2022-04-30 CULTURE, Ordered: [facility] [employer] Test 10:35:33 RESPIRATORY, CYSTIC 04/30/2022 of Medic ine FIBROSIS [code = NOCPT] Future Scheduled 2022-04-30 CBC W/AUTO DIFF WITH Ordered: [facility] Test 10:27:53 PLATELETS [code = 04/30/2022 of Medicin e 84536-2] Future Scheduled 2022-04-30 COMPREHENSIVE Ordered: [facility] Test 10:27:53 METABOLIC PANEL 04/30/2022 of Medicine [code = 51898-0] Future Scheduled 2022-04-30 PROTIME-INR [code = Ordered: [facility] Test 10:27:53 5902-2] 04/30/2022 of Medicine Future Scheduled 2022-04-30 VITAMIN A [code = Ordered: [facility] Test 10:27:53 2923-1] 04/30/2022 of Medicine Future Scheduled 2022-04-30 VITAMIN D 25 HYDROXY Ordered: [facility] Test 10:27:53 [code = 1989-3] 04/30/2022 of Medicine Future Scheduled 2022-04-30 VITAMIN E [code = Ordered: [facility] Test 10:27:53 1823-4] 04/30/2022 of Medicine Future Scheduled 2022-04-30 HEMOGLOBIN A1C [code Ordered: [facility] Test 10:27:53 = 4548-4] 04/30/2022 of Medicine Future Scheduled 2022-04-30 LIPID PANEL [code = Ordered: [facility] [place] Test 10:27:53 28787-6] 04/30/2022 of Medicine Future Scheduled 2022-04-30 IGE [code = 57821-0] Ordered: [facility] Test 10:27:53 04/30/2022 of Medicine Future Scheduled 2022-04-30 TSH [code = 79412-6] Ordered: [facility] Test 10:27:53 04/30/2022 of Medicine Future Scheduled 2021-12-15 Pneumococcal [facility] Test 12:14:03 Combined (1 of 4 - of Medici ne PCV13) [code = Pneumococcal Combined (1 of 4 - PCV13)] Future Scheduled 2021-12-15 COVID-19 Vaccine (3 [facility] [place] Test 12:14:03 - Booster for Pfizer of Medi cine series) [code = COVID-19 Vaccine (3 - Booster for Pfizer series)] Future Scheduled 2021-12-15 FLU VACCINE > 6 Postponed from [facility] Test 12:14:03 MONTHS [code = FLU 05/25/2021 of Medici ne VACCINE > 6 MONTHS] (Postpone Reason: Patient declined today) Future Scheduled 2021-12-15 Screening for [facility] Test 12:14:03 malignant neoplasm of Medici ne of cervix (procedure) [code = 836506829] Future Scheduled 2021-12-15 TETANUS SHOT (ADULT) [facility] Test 12:14:03 [code = TETANUS SHOT of Medi cine (ADULT)] Future Scheduled 2021-12-15 FUNGAL CULTURE [code Ordered: [facility] Test 10:58:56 = 601-5] 12/15/2021 of Medicine Future Scheduled 2021-12-15 ACID FAST CULTURE Ordered: [facility] Test 10:58:56 [code = 543-9] 12/15/2021 of Medicine Future Scheduled 2021-12-15 CULTURE, Ordered: [facility] Test 10:58:56 RESPIRATORY, CYSTIC 12/15/2021 of Medic ine FIBROSIS [code = NOCPT] Future Scheduled 2021-12-15 HEMOGLOBIN A1C [code Ordered: [facility] Test 10:20:02 = 4548-4] 12/15/2021 of Medicine Future Scheduled 2021-11-13 COVID-19 VACCINE ([address] [facility] Test 00:00:00 - Booster for Pfizer Medical Center series) [code = COVID-19 VACCINE (3 - Booster for Pfizer series)] Future Scheduled 2021-11-13 COVID-19 VACCINE ([address] [facility] Test 00:00:00 - Booster for Pfizer Medical Center series) [code = COVID-19 VACCINE (3 - Booster for Pfizer series)] Future Scheduled 2021-11-13 COVID-19 VACCINE ([address] [facility] Test 00:00:00 - Booster for Pfizer Medical Center series) [code = COVID-19 VACCINE (3 - Booster for Pfizer series)] Future Scheduled 2021-11-13 COVID-19 VACCINE ([address] [facility] Test 00:00:00 - Booster for Pfizer Medical Center series) [code = COVID-19 VACCINE (3 - Booster for Pfizer series)] Future Scheduled 2021-10-[address] [facility] Test 00:00:00 (12+) [code = Medical Center DEPRESSION SCREENING (12+)] Future Scheduled 2021-10-[address] [facility] Test 00:00:00 (12+) [code = Medical Center DEPRESSION SCREENING (12+)] Future Scheduled 2021-10-[address] [facility] Test 00:00:00 (12+) [code = Medical Center DEPRESSION SCREENING (12+)] Future Scheduled 2020-01-[address] Test 00:00:00 [facility] Medical Center (procedure) [code = 30486026] Future Scheduled 2016-08-[address] [facility] Test 00:00:00 0-64 YRS (2 - PCV) Medical C enter [code = PNEUMOCOCCAL VACCINE 0-64 YRS (2 - PCV)] Future Scheduled 2016-08-[address] [facility] Test 00:00:00 0-64 YRS (2 - PCV) Medical C enter [code = PNEUMOCOCCAL VACCINE 0-64 YRS (2 - PCV)] Future Scheduled 2016-08-[address] [facility] Test 00:00:00 0-64 YRS (2 - PCV) Medical C enter [code = PNEUMOCOCCAL VACCINE 0-64 YRS (2 - PCV)] Future Scheduled 2016-08-[address] [facility] Test 00:00:00 0-64 YRS (2 - PCV) Medical C enter [code = PNEUMOCOCCAL VACCINE 0-64 YRS (2 - PCV)] Future Scheduled [address] [facility] Test 00:00:00 [facility] r Screening (12+) [code = Tobacco Cessation Counseling and Screening (12+)] Future Scheduled [address] EXAM [facility] Test 00:00:00 [code = DIABETIC EYE Medical Center EXAM] Future Scheduled [address] [facility] Test 00:00:00 examination Medical Center (regime/therapy) [code = 373626720] Future Scheduled 2002 Urine screening for [facility] Test 00:00:00 protein (procedure) Medical Center [code = 685574979] Future Scheduled ANNUAL DIABETIC [facility] Test RETINOPATHY of Medicine SCREENING [code = ANNUAL DIABETIC RETINOPATHY SCREENING] Future Scheduled CERVICAL CANCER [facility] Test SCREENING 3 YEAR of Medicine FOLLOW UP [code = CERVICAL CANCER SCREENING 3 YEAR FOLLOW UP] Future Scheduled A1C TESTING EVERY 6 [employer] Test MONTHS [code = A1C of Medici ne TESTING EVERY 6 MONTHS] Future Scheduled Diabetic foot [facility] Test examination of Medicine (regime/therapy) [code = 913734920] Future Scheduled TETANUS SHOT (ADULT) [place] [employer] Test [code = TETANUS SHOT of Medi cine (ADULT)] Future Scheduled ANNUAL DIABETIC [facility] Test RETINOPATHY of Medicine SCREENING [code = ANNUAL DIABETIC RETINOPATHY SCREENING] Future Scheduled CERVICAL CANCER [facility] Test SCREENING 3 YEAR of Medicine FOLLOW UP [code = CERVICAL CANCER SCREENING 3 YEAR FOLLOW UP] Future Scheduled A1C TESTING EVERY 6 [employer] Test MONTHS [code = A1C of Medici ne TESTING EVERY 6 MONTHS] Future Scheduled Diabetic foot [facility] [employer] [facility] examination of Medicine (regime/therapy) [code = 350558677] Future Scheduled TETANUS SHOT (ADULT) [employer] [employer] Test [code = TETANUS SHOT of Medi cine (ADULT)] Future Scheduled ANNUAL DIABETIC [facility] Test RETINOPATHY of Medicine SCREENING [code = ANNUAL DIABETIC RETINOPATHY SCREENING] Future Scheduled A1C TESTING EVERY 6 [employer] Test MONTHS [code = A1C of Medici ne TESTING EVERY 6 MONTHS] Future Scheduled Diabetic foot [facility] [employer] [facility] examination of Medicine (regime/therapy) [code = 749738734] Future Scheduled CERVICAL CANCER [facility] [employer] Test SCREENING 3 YEAR of Medicine FOLLOW UP [code = CERVICAL CANCER SCREENING 3 YEAR FOLLOW UP] Future Scheduled TETANUS SHOT (ADULT) [employer] Test [code = TETANUS SHOT of Medi cine (ADULT)] Future Scheduled ANNUAL DIABETIC [facility] Test RETINOPATHY of Medicine SCREENING [code = ANNUAL DIABETIC RETINOPATHY SCREENING] Future Scheduled A1C TESTING EVERY 6 [employer] Test MONTHS [code = A1C of Medici ne TESTING EVERY 6 MONTHS] Future Scheduled Diabetic foot [facility] [employer] Test examination of Medicine (regime/therapy) [code = 323881654] Future Scheduled CERVICAL CANCER [facility] Test SCREENING 3 YEAR of Medicine FOLLOW UP [code = CERVICAL CANCER SCREENING 3 YEAR FOLLOW UP] Future Scheduled TETANUS SHOT (ADULT) [employer] Test [code = TETANUS SHOT of Medi cine (ADULT)] Future Scheduled ANNUAL DIABETIC [facility] Test RETINOPATHY of Medicine SCREENING [code = ANNUAL DIABETIC RETINOPATHY SCREENING] Future Scheduled A1C TESTING EVERY 6 [employer] Test MONTHS [code = A1C of Medici ne TESTING EVERY 6 MONTHS] Future Scheduled Diabetic foot [facility] Test examination of Medicine (regime/therapy) [code = 532028964] Future Scheduled CERVICAL CANCER [facility] [employer] Test SCREENING 3 YEAR of Medicine FOLLOW UP [code = CERVICAL CANCER SCREENING 3 YEAR FOLLOW UP] Future Scheduled TETANUS SHOT (ADULT) [employer] Test [code = TETANUS SHOT of Medi cine (ADULT)] Future Scheduled ANNUAL DIABETIC [facility] [employer] RETINOPATHY of Medicine SCREENING [code = ANNUAL DIABETIC RETINOPATHY SCREENING] Future Scheduled A1C TESTING EVERY 6 [employer] Test MONTHS [code = A1C of Medici ne TESTING EVERY 6 MONTHS] Future Scheduled Diabetic foot [facility] [employer] Test examination of Medicine (regime/therapy) [code = 114610969] Future Scheduled CERVICAL CANCER [facility] [employer] Test SCREENING 3 YEAR of Medicine FOLLOW UP [code = CERVICAL CANCER SCREENING 3 YEAR FOLLOW UP] Future Scheduled TETANUS SHOT (ADULT) [employer] Test [code = TETANUS SHOT of Medi cine (ADULT)] Future Scheduled HEPATIC FUNCTION Ordered: [facility] Test PANEL [code = 12/21/2019 [facility] 44335-3] Future Scheduled HEMOGLOBIN A1C [code Ordered: [facility] Test = 4548-4] 12/21/2019 of Medicine Future Scheduled TETANUS SHOT (ADULT) [employer] Test [code = TETANUS SHOT of Medi cine (ADULT)] Future Scheduled CERVICAL CANCER [facility] Test SCREENING 3 YEAR of Medicine FOLLOW UP [code = CERVICAL CANCER SCREENING 3 YEAR FOLLOW UP] Future Scheduled TETANUS SHOT (ADULT) [employer] Test [code = TETANUS SHOT of Medi cine (ADULT)] Future Scheduled FLU VACCINE > 6 [facility] Test MONTHS [code = FLU of Medici ne VACCINE > 6 MONTHS] Future Scheduled CERVICAL CANCER [facility] Test SCREENING 3 YEAR of Medicine FOLLOW UP [code = CERVICAL CANCER SCREENING 3 YEAR FOLLOW UP] Future Scheduled ZOSTER VACCINE (1 of [facility] Test 2) [code = ZOSTER of Medicin e VACCINE (1 of 2)] Future Scheduled HEMOGLOBIN A1C [code Ordered: [facility] Test = 4548-4] 01/06/2021 of Medicine Future Scheduled ACID FAST CULTURE Ordered: [facility] Test [code = 543-9] 01/06/2021 of Medicine Future Scheduled CULTURE, Ordered: [facility] Cheo [employer]ge Test RESPIRATORY, CYSTIC 01/06/2021 of Medic ine FIBROSIS [code = NOCPT] Future Scheduled FUNGAL CULTURE [code Ordered: [facility] Test = 601-5] 01/06/2021 of Medicine Future Scheduled FLU VACCINE > 6 [facility] C ollege Test MONTHS [code = FLU of Medici ne VACCINE > 6 MONTHS] Future Scheduled COVID-19 Vaccine (2 [employer] Test - Pfizer 2-dose of Medicine series) [code = COVID-19 Vaccine (2 - Pfizer 2-dose series)] Future Scheduled Screening for [facility] Col lege Test malignant neoplasm of Medici ne of cervix (procedure) [code = 916647479] Future Scheduled TETANUS SHOT (ADULT) [place] [employer] Test [code = TETANUS SHOT of Medi cine (ADULT)] Future Scheduled SLEEP EQUIPMENT Ordered: [facility] C ollege Test DOWNLOAD [code = 05/19/2019 of Medicine NOCPT] Future Scheduled ANNUAL DIABETIC [facility] C ollege Test RETINOPATHY of Medicine SCREENING [code = ANNUAL DIABETIC RETINOPATHY SCREENING] Future Scheduled CERVICAL CANCER [facility] C ollege Test SCREENING 3 YEAR of Medicine FOLLOW UP [code = CERVICAL CANCER SCREENING 3 YEAR FOLLOW UP] Future Scheduled A1C TESTING EVERY 6 [employer] Test MONTHS [code = A1C of Medici ne TESTING EVERY 6 MONTHS] Future Scheduled FLU VACCINE > 6 [facility] C ollege Test MONTHS [code = FLU of Medici ne VACCINE > 6 MONTHS] Future Scheduled Diabetic foot [facility] Col lege Test examination of Medicine (regime/therapy) [code = 657490233] Future Scheduled TETANUS SHOT (ADULT) [facility] Test [code = TETANUS SHOT of Medi cine (ADULT)] Encounters Start End Encounter Admission Attending Care Care Encounter Source Date/Time Date/Time Type Type Clinicians Facility Department ID 2022-11-13 2022-11-13 [facility] [id number] Univers 00:00:00 00:00:00 Danielle ONEIL 350.1.13.10 i [id number] [address] 2022-11-11 2022-11-11 Outpatient R ALPA [facility] [id number] Univers 10:00:00 10:00:00 kerri DILLON [facility] 2022-10-14 2022-10-14 [facility] [id number] Univers 07:30:00 08:09:12 MONIQUE kerri [facility] 2022-10-14 2022-10-14 Office [facility] 1.2.840.114 [id number] Univers 07:30:00 08:09:12 Visit Monique A [facility] 350.1.13.10 i ty of [place] 4.2.7.2.686 Leandro as RERE?BLEA [id number] [facility] 044 [facility] OFFICE BUILDING 2022-10-14 2022-10-14 Abdon [facility] 1.2.244.230 [id number] Univers 00:00:00 00:00:00 Danielle ONEIL 350.1.13.10 i [place] [id number] [facility] 134 [facility] 2022-08-31 2022-08-31 Outpatient [facility] [id number] Univers 13:30:00 14:21:21 DANIELLE ity of [facility] 2022-08-31 2022-08-31 Office Eligio [facility] 1.2.632.566 [id number] Univers 13:30:00 14:21:21 Visit Danielle CL[place] 350.1.13.10 i [place] [phone] Ri dical NAL 134 [facility] 2022-08-31 2022-08-31 Orders Doctor FLIP 1.2.840.114 [id number] Univers 00:00:00 00:00:00 Only Unassigned, JUNAID 350.1.13.10 ity of [place] [facility] 4.2.7.2.686 Leandro as [id number] [place] [id number] [address] 2022-08-12 2022-08-19 [facility] rCystal Germain [facility] [id number] 20:44:00 12:14:00 Encounter Jocelyn Eller 8 [facility] 2022-08-12 2022-08-19 Inpatient ARELY LEOS [facility] Med [id number] [facility] 20:44:00 12:14:00 8 2022-08-13 2022-08-13 Orders Zaid Morgan [facility] [id number] 00:00:00 00:00:00 Only [facility] 2022-08-13 2022-08-13 Orders Zaid Morgan [facility] [id number] [facility] St 00:00:00 00:00:00 Only [facility] 2022-08-12 2022-08-12 Outpatient CASS TOLENTINO [facility] [id number] [facility] 11:08:15 19:50:11 Yonatan moore of Medicin e 2022-08-12 2022-08-12 Office Marco Smith 1.2.840.114 [id number] [facility] 16:15:00 16:30:00 Visit AMBULATOR 350.1.13.21 College Y 0.2.7.2.686 of [id number] [facility] [place] 350 e 2022-06-23 2022-06-23 Outpatient R ELIGIO [facility] [id number] Univers 11:00:00 11:00:00 DANIELLE manning [facility] 2022-06-19 2022-06-19 Trailer Sections Assembler Lab, Ang - Db [facility] 1.2.840.1 [id number] Univers 16:00:00 16:15:00 Visit Monique Dooley HEALTH 350.1.13.10 ity of [place] 4.2.7.2.686 Leandro as RERE?BLEA [id number] Ri caposonny [facility] [address] MEDICAL OFFICE [facility] 2022-06-19 2022-06-19 Outpatient R SOUMYA [facility] [id number] Univers 16:00:00 16:00:00 MONIQUE ity [facility] 2022-06-19 2022-06-19 Outpatient R SOUMYA [facility] [id number] Univers 15:30:00 15:50:13 MONIQUE kerri [facility] 2022-06-19 2022-06-19 Office [facility] 1.2.840.114 [id number] Univers 15:30:00 15:50:13 Visit Monique Mathias HEALTH 350.1.13.10 i ty of [place] 4.2.7.2.686 Leandro as RERE?BLEA [id number] [facility] 044 [facility] OFFICE [facility] 2022-06-19 2022-06-19 Orders Doctor FLIP 1.2.840.114 [id number] Univers 00:00:00 00:00:00 Only Unassigned, JUNAID 350.1.13.10 ity of [place] [facility] 4.2.7.2.686 Leandro as [id number] [facility] [address] 2022-06-19 2022-06-19 Patient Eligio OKDEBO 1.2.619.524 [id number] Univers 00:00:00 00:00:00 Secure Msg Danielle ROLONKAMERON 350.1.13.10 ity of [place] [id number] Ri dicsonny [facility] 134 [facility] 2022-05-27 2022-05-27 Office [facility] 1.2.795.820 [id number] Univers 14:00:00 14:33:24 Visit Danielle CLARICE 350.1.13.10 i ty of [place] [phone] Ri dical NAL 134 [facility] 2022-05-27 2022-05-27 Outpatient R ELIGIO [facility] [id number] Univers 14:00:00 14:33:24 DANIELLE manning [facility] 2022-05-27 2022-05-27 Outpatient R ELIGIO [facility] [id number] Univers 14:00:00 14:00:00 DANIELLE manning [facility] 2022-05-27 2022-05-27 Orders Doctor FLIP 1.2.840.114 [id number] Univers 00:00:00 00:00:00 Only Unassigned, JUNAID 350.1.13.10 ity of [facility] 4.2.7.2.686 Leandro as [id number] [facility] [address] 2022-05-06 2022-05-06 Office SOWMYA Bliss 1.2.840.114 [id number] [facility] 10:00:00 12:14:37 Visit Jenny AMBULATOR 350.1.13.21 [facility] 0.2.7.2.686 of [id number] [facility] 310 e 2022-05-01 2022-05-02 Emergency ER Christian Coleman [facility] [id number] [facility] 21:52:00 05:30:00 [facility] 2022-05-01 2022-05-02 Emergency BicChristian coronado [facility] [id number] [facility] 21:52:00 05:30:00 [facility] 2022-05-01 2022-05-02 Emergency ER PAGE [facility] Emergency [id number] SLE 21:52:00 05:30:00 [place] 2022-05-01 2022-05-01 Outpatient [facility] [id number] [facility]H 14:14:36 14:14:36 2022-05-01 2022-05-01 Travel [facility] [id number] [facility] 00:00:00 00:00:00 [facility] 2022-05-01 2022-05-01 Travel [facility] [id number] [facility] 00:00:00 00:00:00 [facility] 2022-04-30 2022-04-30 [facility] [id number] 13:13:11 23:59:00 Encounter [facility] 2022-04-30 2022-04-30 [facility] [id number] 13:13:11 23:59:00 Encounter [facility] 2022-04-30 2022-04-30 Outpatient CHRISTIN [facility] SLE [id number] SLEH 13:13:11 23:59:00 [facility] 2022-04-30 2022-04-30 Orders [facility], [facility] [id number] 15:30:00 15:45:00 Only [facility] 2022-04-30 2022-04-30 [facility] [id number] 15:30:00 15:45:00 Only [facility] 2022-04-30 2022-04-30 Outpatient CHRISTIN [facility] SLE [id number] SLEH 13:12:58 13:12:00 [facility] 2022-04-30 2022-04-30 [facility] [id number] 13:10:00 13:12:00 Encounter [facility] 2022-04-30 2022-04-30 [facility] [id number] 13:10:00 13:12:00 Encounter [facility] 2022-04-30 2022-04-30 Office SOWMYA WALLER 1.2.840.114 [id number] [facility] 10:11:35 10:11:35 Visit SUNJAY AMBULATOR 350.1.13.21 College Y 0.2.7.2.686 of [id number] [place]i [place] 350 e 2022-04-30 2022-04-30 Outside [facility] [id number] 00:00:00 00:00:00 Orders [facility] 2022-04-30 2022-04-30 Outside [facility] [id number] 00:00:00 00:00:00 Orders [facility] 2022-02-05 2022-02-05 Outpatient Ciro DEL VALLE [facility] [id number] Univers 08:30:00 08:30:00 [facility] 2021-12-16 2021-12-16 Outpatient [facility] SLE [id number] [facility] 17:15:36 17:15:36 2021-12-15 2021-12-16 Outpatient SOWMYA BLISS [facility] [id number] [facility] 08:28:25 09:33:12 JENNY canseco of Medicin e 2021-12-15 2021-12-15 Orders TO Waller [facility] [id number] 14:45:00 15:00:00 Only [facility] 2021-12-15 2021-12-15 Orders Christin [facility] [id number] 14:45:00 15:00:00 Only [facility] 2021-12-15 2021-12-15 Office ROSALIND WALLER 1.2.840.114 [id number] [facility] 10:12:04 13:46:31 Visit SUNJAY AMBULATOR 350.1.13.21 College Y 0.2.7.2.686 of [id number] Medi [place] 350 e 2021-11-11 2021-11-11 Nurse Nurse, [facility] 1.2.840.114 [id number] Univers 10:30:00 10:30:00 Visit Danielle Del Valle 350.1.13.10 ity of [facility] [place] [phone] Ri dical [facility] 134 [facility] 2021-11-11 2021-11-11 Outpatient [facility] [id number] Univers 10:30:00 09:47:20 DANIELLE ity [facility] 2021-11-07 2021-11-07 Outpatient R [facility] [id number] Univers 15:00:00 15:00:00 ity [facility] 2021-11-01 2021-11-01 Trailer Sections Assembler Pedro Luis, Adc Lab Main [facility] 1.2.8 40.114 [id number] [facility] 09:15:00 09:30:00 Visit Danielle Del Valle 350.1.13.10 ity [place] [id number] [address] 2021-11-01 2021-11-01 Outpatient [facility] [id number] Univers 09:15:00 09:15:00 DANIELLE [facility] 2021-10-31 2021-10-31 Outpatient TIARRA [facility] [id number] [facility] 10:55:48 11:34:45 JOCELIN Colleg e of Medicin e 2021-10-29 2021-10-29 Outpatient RUTHY [facility] [id number] [facility] 15:46:50 16:32:00 SIRIPOOM Colle ge of Medicin e 2021-10-27 2021-10-27 Trailer Sections Assembler Pedro Luis, Adc Lab Main [facility] 1.2.8 40.114 [id number] Univers 16:45:00 17:00:00 Visit Danielle Del Valle 350.1.13.10 ity of [place].2.[place] [id number] Ri dic[address] 2021-10-27 2021-10-27 Out[facility] [id number] Univers 16:45:00 16:45:00 DANIELLE ity [facility] 2021-10-27 2021-10-27 Patient Eligio [facility] 1.2.303.511 [id number] Univers 00:00:00 00:00:00 Secure Msg Danielle ONEIL 350.1.13.10 it[place] [id number] [address] 2021-10-27 2021-10-27 Orders Doctor FLIP 1.2.840.114 [id number] Univers 00:00:00 00:00:00 Only Unassigned, JUNAID 350.1.13.10 ity of [place] [facility] 4.2.7.2.686 Leandro as [id number] [address] 2021-10-24 2021-10-24 Outpatient R [facility] [id number] Univers 11:30:00 11:30:00 ity [facility] 2021-10-15 2021-10-15 Case [facility] 1.2.118.900 [id number] Univers 00:00:00 00:00:00 Management Danielle ONEIL 350.1.13.10 ity of [place] [id number] [address] 2021-10-14 2021-10-14 Outpatient R ELIGIO [facility] [id number] Univers 09:15:00 09:38:09 DANIELLETAMEKA manning [facility] 2021-10-14 2021-10-14 Office [facility] 1.2.025.138 [id number] Univers 09:15:00 09:38:09 Visit Danielle ROLONKAMERON 350.1.13.10 i ty of [place] [id number] [address] 2021-10-14 2021-10-14 Out[facility] [id number] Univers 09:15:00 09:15:00 DANIELLE manning [facility] 2021-08-20 2021-08-20 Patient Eligio [facility] 1.2.124.908 [id number] Univers 00:00:00 00:00:00 Secure Msg Danielle Oneil 350.1.13.10 ity of [place] 4.[place].2.[place] [id number] Ri dical nal [address] [place] [address] 2021-08-15 2021-08-15 Nurse Nurse, [facility] 1.2.840.114 [id number] Univers 10:01:31 10:32:32 Visit Steve Qureshi 350.1.13.10 ity of [place] 4.[place].2.[place] [phone] Ri dical nal [address] [place] [address] 2021-08-15 2021-08-15 Outpatient R STEVE QURESHI [facility] [id number] Univers 10:00:00 10:00:00 ity of [facility] 2021-07-29 2021-07-29 Office [facility] 1.2.573.404 [id number] Univers 15:51:13 16:19:26 Visit Danielle Oneil 350.1.13.10 i ty of [place] 4.[place].2.[place] Profess[place] [id number] Ri dic[address] 2021-07-29 2021-07-29 Outpatient R ELIGIO [facility] [id number] Univers 16:00:00 16:00:00 DANIELLE ity of [facility] 2021-07-25 2021-07-25 Case Tam Del Valle 1.2.595.368 [id number] Univers 00:00:00 00:00:00 Management Danielle Pediatric 350.1.13.10 ity of [place].2.[place] Adult [id number] [address] [facility] 2021-07-16 2021-07-16 Patient Eligio [facility] 1.2.235.647 [id number] Univers 00:00:00 00:00:00 Secure Msg Danielle Oneil 350.1.13.10 ity of [place] [phone] Ri dical nal [address] [place] [address] 2021-07-14 2021-07-14 Trailer Sections Assembler 2, [facility] 1.2.840.114 [id number] [facility] 10:44:38 10:59:38 Visit Danielle Del Valle 350.1.13.10 ity of [place].2.[place] [id number] Ri dic[address] 2021-07-14 2021-07-14 Office [facility] 1.2.169.708 [id number] [facility] 08:27:24 09:08:34 Visit Danielle Oneil 350.1.13.10 i ty of [place] 4.[place].2.[place] [id number] [address] 2021-07-14 2021-07-14 Outpatient R ELIGIO [facility] [id number] [facility] 08:30:00 08:30:00 DANIELLE ity [facility] 2021-06-24 2021-06-24 Trailer Sections Assembler 2, [facility] Lab [facility] 1.2.840.114 [id number] Univers 13:51:31 14:06:31 Visit Danielle Del Valle 350.1.13.10 ity of [place].2.[place] [phone] Ri dic[address] 2021-06-24 2021-06-24 Office [facility] 1.2.401.477 [id number] Univers 12:52:00 13:48:05 Visit Danielle Oneil 350.1.13.10 i ty of [place] 4.[place].2.[place] [phone] Ri dic[address] 2021-06-24 2021-06-24 Office [facility] 1.2.104.573 [id number] [facility] 12:52:00 13:48:05 Visit Danielle Oneil 350.1.13.10 i ty of [place] 4.[place].2.[place] [phone] Ri dical [address] 2021-06-24 2021-06-24 Outpatient [facility] [id number] Univers 13:00:00 13:00:00 DANIELLE [facility] 2021-06-23 2021-06-23 Telephone [facility] 1.2.840.114 [id number] Univers 00:00:00 00:00:[address] [facility] 350.1.13.10 [facility] 4.2.7.2.686 Braden gilbert Professio [phone] Ri dical [address] 2021-06-13 2021-06-13 Outpatient [facility] [id number] [facility] 09:57:28 13:52:18 Colleg e of Medicin e 2021-05-21 2021-05-21 Nurse Nurse, [facility] 1.2.840.114 [id number] 14:37:06 14:54:54 Visit [facility] 350.1.13.10 [facility] 4.2.7.2.686 Professio [phone] [address] 2021-05-21 2021-05-21 Outpatient R [facility] [id number] Univers 14:30:00 14:30:00 [facility] 2021-05-21 2021-05-21 Outpatient R [facility] [id number] [facility] 08:00:00 08:00:00 [facility] 2021-05-19 2021-05-19 Outpatient MARCO SMITH [facility] [id number] [facility] 11:41:53 12:08:43 Colleg e of Medicin e 2021-04-24 2021-04-24 Outpatient [facility] [id number] Univers 13:30:00 13:30:00 DANIELLE [facility] 2021-04-22 2021-04-22 Outpatient SOWMYA DIAZ [facility] [id number] [facility] 12:53:55 13:09:22 TERE Colleg e of Medicin e 2021-02-26 2021-02-26 Outpatient R [facility] [id number] Univers 08:00:00 08:00:00 [facility] 2021-01-06 2021-01-06 Office Marco Smith [facility] 1.2.840.114 [id number] [facility] 11:00:57 11:15:57 Visit AMBULATOR 350.1.13.21 College Y 0.2.7.2.686 [id number] Medi [place] 350 e 2021-01-06 2021-01-06 Outpatient EL SLE [facility] [id number] [facility] 00:00:00 00:00:00 2021-01-02 2021-01-02 Outpatient R [facility] [id number] Univers 13:00:00 13:00:00 [facility] 2020-12-04 2020-12-04 Outpatient [facility] [id number] Univers 14:45:00 14:45:00 [facility] 2020-11-15 2020-11-15 Outpatient R SOUMYA, [facility] [id number] Univers 10:30:00 10:30:00 MONIQUE [facility] 2020-10-15 2020-10-15 Outpatient R [facility] [id number] Univers 11:00:00 11:00:00 [facility] 2020-09-04 2020-09-04 Outpatient R [facility] [id number] Univers 13:20:00 13:20:00 [facility] 2020-06-28 2020-06-28 Outpatient R FLOR, [facility] [id number] Univers 14:30:00 14:30:00 [facility] 2020-06-12 2020-06-12 Outpatient [facility] [id number] Univers 14:30:00 14:30:00 [facility] 2020-05-15 2020-05-15 Outpatient R ELIGIO, [facility] [id number] Univers 11:00:00 11:00:00 DANIELLE [facility] 2020-04-04 2020-04-04 Outpatient EL ASHLEY, SLE SLE [id number] [facility] 00:00:00 00:00:00 NICOLAAS 2020-02-13 2020-02-13 Outpatient R [facility] [id number] Univers 14:00:00 14:00:00 ity of [facility] 2020-01-26 2020-01-26 Outpatient R PASHA, [facility] [id number] Univers 14:00:00 14:00:00 WONDIFUL ity o f [facility] 2019-12-21 2019-12-21 Office SOWMYA Diaz 1.2.840.114 [id number] [facility] 09:34:23 09:49:23 Visit Tere AMBULATOR 350.1.13.21 College Y 0.2.7.2.686 of [id number] Medi [place] 350 e 2019-12-21 2019-12-21 Office SOWMYA Diaz 1.2.840.114 [id number] 09:34:23 09:49:23 Visit Tere AMBULATOR 350.1.13.21 Y 0.2.7.2.686 [id number] 350 2019-08-29 2019-08-29 Office SOWMYA Diaz 1.2.840.114 [id number] [facility] 13:12:05 14:57:22 Visit Tere AMBULATOR 350.1.13.21 College Y 0.2.7.2.686 of [id number] Medi [place] 350 e 2019-08-29 2019-08-29 Office SOWMYA Diaz 1.2.840.114 [id number] [facility] 13:12:05 14:57:22 Visit Tere AMBULATOR 350.1.13.21 Y 0.2.7.2.686 [id number] 350 2019-08-24 2019-08-24 Office SOWMYA Ramirez 1.2.798.[id number] [place] [address] 07:55:29 09:09:00 Visit Nicolaas AMBULATOR 350.1.13.21 [place] Y 0.2.7.2.686 of [id number] Medi [place] 800 e 2019-08-24 2019-08-24 Office SOWMYA Ramirez 1.2.049.178 [id number] 07:55:29 09:09:00 Visit Nicolaas AMBULATOR 350.1.13.21 [place] Y 0.2.7.2.686 [id number] 800 2019-08-16 2019-08-16 Office SOWMYA Bliss 1.2.840.[id number] [place] [address] 12:46:06 13:46:06 Visit [employer] AMBULATOR 350.1.13.21 College [employer] Y 0.2.7.2.686 of [id number] [facility] 310 e 2019-08-16 2019-08-16 Office SOWMYA Bliss 1.2.840.114 [id number] 12:46:06 13:46:06 Visit [employer]oom AMBULATOR 350.1.13.21 [employer] Y 0.2.7.2.686 [id number] 310 2019-08-02 2019-08-02 Office SOWMYA Bliss 1.2.840.114 [id number] 68 [facility] 14:28:48 15:28:48 Visit [employer] AMBULATOR 350.1.13.21 College [employer] Y 0.2.7.2.686 of [id number] [facility] 310 e 2019-08-02 2019-08-02 Office SOWMYA Bliss 1.2.840.114 [id number] 68 14:28:48 15:28:48 Visit [employer] AMBULATOR 350.1.13.21 [employer] Y 0.2.7.2.686 [id number] 310 2019-07-24 2019-07-24 Office SOWMYA Mayen 1.2.840.[id number] [place] [address] 09:25:08 10:27:11 Visit Jocelin AMBULATOR 350.1.13.21 College Y 0.2.7.2.686 of [id number] [facility] 300 e 2019-07-24 2019-07-24 Office SOWMYA Mayen 1.2.840.114 [id number] 09:25:08 10:27:11 Visit Jocelin AMBULATOR 350.1.13.21 Y 0.2.7.2.686 [id number] 300 2019-07-18 2019-07-18 Office SOWMYA Waller 1.2.840.114 [id number] [facility] 13:16:07 15:06:34 Visit Sunjay AMBULATOR 350.1.13.21 College Y 0.2.7.2.686 of [id number] [facility] [place] 350 e 2019-07-18 2019-07-18 Office SOWMYA Waller 1.2.840.114 [id number] 13:16:07 15:06:34 Visit Sunjay AMBULATOR 350.1.13.21 Y 0.2.7.2.686 [id number] 350 2019-05-19 2019-05-19 Office SOWMYA Stovall 1.2.840.114 [id number] [facility] [facility] 11:12:00 11:57:59 Visit Fidaa AMBULATOR 350.1.13.21 College Y 0.2.7.2.686 of [id number] [facility] [place] 340 e 2019-05-19 2019-05-19 Office JerrymaxxROSALINDLuis 1.2.840.114 [id number] 11:12:00 11:57:59 Visit Fidaa AMBULATOR 350.1.13.21 Y 0.2.7.2.686 [id number] 340 2015-05-07 2015-05-07 Office Luis Marco BC [id number] [facility] 08:50:11 16:11:50 Visit AMBULATOR 350.1.13.21 College Y 0.2.7.2.686 of [id number] [facility] [place] 353 e 2015-05-07 2015-05-07 Office LuisMarco BC 1.2.840.114 [id number] 08:50:11 16:11:50 Visit AMBULATOR 350.1.13.21 Y 0.2.7.2.686 [id number] 353 Results Test Description Test Time Test Comments Results Result Comments Source SPIN/CONCENTRATION CHARGE 2022-11-16 13:51:19 Test Item Value Reference Range Interpretation Comme nts Concentration charged (test code = 2657) Done DEE (test code = DEE) Specimen received, ordered and processed during a system downtime event [id number] 13:51:19 Test Item Value Reference Range Interpretation Comments CONCENTRATION CHARGED (BEAKER) (test Done code = 2657) Specimen received, ordered and processed during a system downtime eventAFB culture + smear (sputum only)2022-11-16 13:51:18 Test Item Value Reference Range Interpretation Comments Result (test code = No acid-fast bacilli 6463-4) isolated in 42 days AFB Smear (test code No acid fast bacilli = 30869-5) seen DEE (test code = DEE) Specimen received, ordered and processed during a system downtime event [facility]SP[facility] ONLY[facility]2022-11-16 13:51:18 Test Item Value Reference Range Interpretation Comments CULTURE (BEAKER) (test No acid-fast bacilli code = 1095) isolated in 42 days AFB SMEAR (BEAKER) No acid fast bacilli (test code = 994) seen Specimen received, ordered and processed during a system downtime eventSPUTUM CULTURE + GRAM [id number] 15:20:39 Test Item Value Reference Interpretation Comments Range CULTURE (BEAKER) PSEUDOMONAS A 4+ Pseudomo viki (test code = 1095) AERUGINOSA aeruginos a (MUCOID-PHENOTYPE) (Mucoid-p henotype) Amikacin (test code = See_Comment S [Auto mated 1) message] The system which generated this [...] result as normal/abnormal . Cefepime (test code = See_Comment R [Auto mated 51) message] The system which generated this [...] to interpret this result as normal/abnormal . Gentamicin (test code See_Comment S [Auto mated = 18) message] The system which generated [...] Piperacillin + See_Comment S [Automated Tazobactam (test code messag e] The = 29) system which generated this result transmit magdaleno reference range : Susceptible 0-1 6 , Resistant <0 or >16 . The reference range was not used to interpret this result as normal/abnormal . Tobramycin (test code See_Comment S [Auto mated = 25) message] The system which generated this result transmit magdaleno reference range : Susceptible 0-4 , Resistant <0 or >4 . The reference range was not u sed to interpret th is result as normal/abnormal . CULTURE (XetalAKER) STAPHYLOCOCCUS A 3+ Staphy lococcus (test code = 1095) AUREUS aureus Clindamycin (test R code = 10) Erythromycin (test R code = 4) Linezolid (test code S = 40) Oxacillin (test code S = 14) Rifampin (test code = S 43) Tetracycline (test S code = 2) Trimethoprim + S Sulfamethoxazole (test code = 47) Vancomycin (test code S = 13) GRAM STAIN RESULT 1+ WBCs (BEAKER) (test code = 1123) GRAM STAIN RESULT 0-5 epithelial (BEAKER) (test code = cells 162753) GRAM STAIN RESULT 2+ gram positive (BEAKER) (test code = rods 499380) GRAM STAIN RESULT 1+ gram positive (BEAKER) (test code = cocci in chains 403066) and pairs 4+ Normal respiratory derick presentBLOOD [id number] 15:04:56 Test Item Value Reference Range Interpretation Comments CULTURE (BEAKER) (test No growth in 5 days code = 1095) Specimen received, ordered, and processed during a system downtime event in JulyLOOD [id number] 12:11:58 Test Item Value Reference Range Interpretation Comments CULTURE (BEAKER) A From Aerobi c Bottle (test code = Only Coagulase 1095) negative Staphylococcus GRAM STAIN From aerobic RESULT (BEAKER) bottle only: (test code = gram positive 1123) cocci in clusters The specimen volume collected for this blood culture was below the optimum (10 mL per bottle or 20 mL total). Use of lower volumes may adversely affect recovery and/or detection times of some organisms.BLOOD CULTURE IDENTIFICATION [id number] 12:11:58 Test Item Value Reference Range Interpretation Comments LISTERIA MONOCYTOGENES (test Not detected Not detected code = 20160727) STAPHYLOCOCCUS (test code = Not detected Not detected 7507674) STAPHYLOCOCCUS AUREUS (test code Not detected Not detected = 6193444) STREPTOCOCCUS (test code = Not detected Not detected 0309308) STREPTOCOCCUS AGALACTIAE (GROUP Not detected Not detected B) (test code = 8392699) STREPTOCOCCUS PNEUMONIAE (test Not detected Not detected code = 4680199) STREPTOCOCCUS PYOGENES (GROUP A) Not detected Not detected (test code = 5391103) ACINETOBACTER BAUMANNII (test Not detected Not detected code = 5937618) HAEMOPHILUS INFLUENZAE (test Not detected Not detected code = 6437993) NEISSERIA MENINGITIDIS (test Not detected Not detected code = 4209357) ENTEROBACTERIACEAE (test code = Not detected Not detected 3403255) ENTEROBACTER CLOACOE COMPLEX Not detected Not detected (test code = 0790371) KLEBSIELLA OXYTOCA (test code = Not detected Not detected 6875396) KLEBSIELLA PNEUMONIAE (test code Not detected Not detected = 1650) PROTEUS (test code = 4296843) Not detected Not detected SERRATIA MARCESCENS (test code = Not detected Not detected 6993723) MALI ALBICANS (test code = Not detected Not detected ) MALI GLABRATA (test code = Not detected Not detected ) MALI KRUSEI (test code = Not detected Not detected ) MALI PARAPSILOSIS (test code Not detected Not detected = 7760826) MALI TROPICALIS (BKR) (test Not detected Not detected code = 8181415) ESCHERICHIA COLI (test code = Not detected Not detected 3515528) METHICILLIN-RESISTANCE GENE (test code = 7163522) VANCOMYCIN-RESISTANCE GENE (test code = 6298739) CARBAPENEM-RESISTANCE GENE (test code = 5082460) ENTEROCOCCUS-BEAKER (test code = Not detected Not detected 9408086) PSEUDOMONAS AERUGINOSA-BEAKER Not detected Not detected (test code = 0524252) Other bacteria and resistance markers not targeted by this PCR panel cannot be excluded; therefore clinical correlation and follow up of serology, culture results, and other molecular studies is required. The results are not intended to be used as the sole means for clinical diagnosis or patient management decisions. This sample was tested at the [facility] using the [employer] Blood Culture ID Panel. It is FDA cleared and has been verified and approved by the [facility] for clinical use. This laboratory is CLIA-certified and College ofAmerican Pathologists (CAP)-accredited to perform high complexity testing.POCT-GLUCOSE [id number] 15:08:57 Test Item Value Reference Range Interpretation Comments POC-GLUCOSE METER 414 mg/dL 70-110 HH : Notified RN/MD: (SIMI) (test code = TESTED AT [facility] 67 1538) [facility], [address]: Mainframe Programmer Analyst/Techni osvaldo ID = [id number] for Ea ves (contract), Cou rtney POCT-GLUCOSE [id number] 15:08:57 Test Item Value Reference Range Interpretation Comments POC-GLUCOSE METER 325 mg/dL 70-110 H : TESTED A T [facility] 6720 ([facility]) (test code = [facility], 1538) [address]: Mainframe Programmer Analyst/Techni osvaldo ID = [id number] for Ea ves (contract), Cou rtney POCT [id number] 20:04:00 Test Item Value Reference Range Interpretation Comments POCT PREG (test code = 1605) Negative On board controls acceptable with C Yes Line (test code = 3574) POCT PREG LOT # (test code = 3575) POCT PREG TEST DATE (test code = 3576) [facility] [id number] 20:04:00 Test Item Value Reference Range Interpretation Comments POCT PREG (test code = 1605) Negative On board controls acceptable with C Yes Line (test code = 3574) POCT PREG LOT # (test code = 3575) POCT PREG TEST DATE (test code = 3576) [facility]-Glucose [id number] 17:39:48 Test Item Value Reference Range Interpretation Comments POC-Glucose Meter (test 97 mg/dL 70-110 : No tified RN/MD: code = 1538) Pt. refused rpt tst: TESTED AT [address], [facility] 30: Mainframe Programmer Analyst/Techni osvaldo ID = [id number] for Tej, Rayne Lab Interpretation (test Normal code = 82824-2) [facility]-Glucose [id number] 17:39:48 Test Item Value Reference Range Interpretation Comments POC-Glucose Meter (test 97 mg/dL 70-110 : No tified RN/MD: code = 1538) Pt. refused rpt tst: TESTED AT [address], [facility] 30: Mainframe Programmer Analyst/Techni osvaldo ID = [id number] for Tej, Rayne Lab Interpretation (test Normal code = 06384-6) [facility]-Glucose [id number] 17:39:48 Test Item Value Reference Range Interpretation Comments POC-Glucose Meter (test 97 mg/dL 70-110 : No tified RN/MD: code = 1538) Pt. refused rpt tst: TESTED AT [address], [facility] 30: Mainframe Programmer Analyst/Techni osvaldo ID = [id number] for Tej, Rayne Lab Interpretation (test Normal code = 39974-0) [facility]-GLUCOSE [id number] 17:39:48 Test Item Value Reference Range Interpretation Comments POC-GLUCOSE METER 97 mg/dL 70-110 : Notified RN/MD: Pt. (BEAKER) (test code = refuse d rpt tst: TESTED 1538) AT [place] [address] [address] [facility], 770 30: Mainframe Programmer Analyst/Techni osvaldo ID = [id number] for Rayne Nunes POCT-GLUCOSE [id number] 11:54:07 Test Item Value Reference Range Interpretation Comments POC-GLUCOSE METER 211 mg/dL 70-110 H : Notified RN/MD: Pt. (BEMERA) (test code = refuse d rpt tst: TESTED 1538) AT [place] [address] [address] [facility], 770 30: Mainframe Programmer Analyst/Techni osvaldo ID = [id number] for Jordan rrmarvin Rayne POCT-GLUCOSE [id number] 08:05:22 Test Item Value Reference Range Interpretation Comments POC-GLUCOSE METER 155 mg/dL 70-110 H : Notified RN/MD: Pt. (BEAKER) (test code = refuse d rpt tst: TESTED 1538) AT [place] [address] [address] [facility], 770 30: Mainframe Programmer Analyst/Techni osvaldo ID = [id number] for Rayne Mantilla BASIC METABOLIC [id number] 07:40:10 Test Item Value Reference Range Interpretation Comments SODIUM (BEAKER) 136 meq/L 136-145 (test code = 381) POTASSIUM 4.1 meq/L 3.5-5.1 (BEAKER) (test code = 379) CHLORIDE (BEAKER) 100 meq/L 98-107 (test code = 382) CO2 (BEAKER) 30 meq/L 22-29 H (test code = 355) BLOOD UREA 24 mg/dL 7-21 H NITROGEN (BEAKER) (test code = 354) CREATININE 0.81 mg/dL 0.57-1.25 (BEAKER) (test code = 358) GLUCOSE RANDOM 71 mg/dL 70-105 (BEAKER) (test code = 652) CALCIUM (BEAKER) 8.3 mg/dL 8.4-10.2 L (test code = 697) EGFR (BEAKER) 100 Interpretatio n of eGFR (test code = mL/min/1.73 values Stage De scription 1092) sq m Result G1 Anna Marie l or high >=90 G2 Mildly decreased 60-89 G3a Mild ly to moderately 45-5 9 G3b Moderately to s everely 30-44 G4 Severl y decreased 15-29 G5 Kidney failure <15Reported eGF R is based on the CKD-EPI 2020 equation that d oes not use a race coefficientEsti mated GFR is not as accur ate as Creatinine Ji jerez in predicting glom erular filtration rate . Estimated GFR is not appl icable for dialysis patien ts Mainframe Programmer Analyst ID - VICKIE MPOCT-GLUCOSE [id number] 07:37:08 Test Item Value Reference Range Interpretation Comments POC-GLUCOSE METER 35 mg/dL 70-110 LL : Notified RN/MD: Pt. (BEAKER) (test code = refuse d rpt tst: TESTED 1538) AT [facility] [address] [facility] [place], [address] 30: Mainframe Programmer Analyst/Techni osvaldo ID = [id number] for Rayne Nunes CBC W/PLT COUNT & AUTO [id number] 06:23:25 Test Item Value Reference Range Interpretation Comments WHITE BLOOD CELL COUNT (BEAKER) 9.8 K/ L 3.5-10.5 (test code = 775) RED BLOOD CELL COUNT (BEAKER) 2.94 M/ L 3.93-5.22 L (test code = 761) HEMOGLOBIN (BEAKER) (test code = 8.9 GM/DL 11.2-15.7 L 410) HEMATOCRIT (BEAKER) (test code = 27.8 % 34.1-44.9 L 411) MEAN CORPUSCULAR VOLUME (BEAKER) 95 fL 79-95 (test code = 753) MEAN CORPUSCULAR HEMOGLOBIN 30.3 pg 25.6-32.2 (BEAKER) (test code = 751) MEAN CORPUSCULAR HEMOGLOBIN CONC 32.0 GM/DL 32.2-35.5 L (BEAKER) (test code = 752) RED CELL DISTRIBUTION WIDTH 14.1 % 11.7-14.4 (BEAKER) (test code = 412) PLATELET COUNT (BEAKER) (test 281 K/CU MM 150-450 code = 756) MEAN PLATELET VOLUME (BEAKER) 11.5 fL 9.4-12.3 (test code = 754) NUCLEATED RED BLOOD CELLS 0 /100 WBC 0-0 (BEAKER) (test code = 413) NEUTROPHILS RELATIVE PERCENT 52 % (BEAKER) (test code = 429) LYMPHOCYTES RELATIVE PERCENT 32 % (BEAKER) (test code = 430) MONOCYTES RELATIVE PERCENT 8 % (BEAKER) (test code = 431) EOSINOPHILS RELATIVE PERCENT 6 % (BEAKER) (test code = 432) BASOPHILS RELATIVE PERCENT 0 % (BEAKER) (test code = 437) NEUTROPHILS ABSOLUTE COUNT 5.12 K/ L 1.56-6.13 (BEAKER) (test code = 670) LYMPHOCYTES ABSOLUTE COUNT 3.15 K/ L 1.18-3.74 (BEAKER) (test code = 414) MONOCYTES ABSOLUTE COUNT (BEAKER) 0.81 K/ L 0.24-0.36 H (test code = 415) EOSINOPHILS ABSOLUTE COUNT 0.61 K/ L 0.04-0.36 H (BEAKER) (test code = 416) BASOPHILS ABSOLUTE COUNT (BEAKER) 0.03 K/ L 0.01-0.08 (test code = 417) IMMATURE GRANULOCYTES-RELATIVE 0.80 % 0.00-1.00 PERCENT (BEAKER) (test code = 2801) POCT-GLUCOSE [id number] 22:32:43 Test Item Value Reference Range Interpretation Comments POC-GLUCOSE METER 227 mg/dL 70-110 H : TESTED A T [facility] 67 ([facility]) (test code = [facility], 153) [address]: Mainframe Programmer Analyst/Techni osvaldo ID = [id number] for HERIBERTO ORLYBRITTNEE MCDUFFIE POCT-GLUCOSE [id number] 15:05:13 Test Item Value Reference Range Interpretation Comments POC-GLUCOSE METER 404 mg/dL 70-110 HH : Notified RN/MD: (SIMI) (test code = TESTED AT [place] [address] 1537) [facility], [address]: Mainframe Programmer Analyst/Techni osvaldo ID = [id number] for Edita Hart POCT-GLUCOSE [id number] 12:05:19 Test Item Value Reference Range Interpretation Comments POC-GLUCOSE METER 65 mg/dL 70-110 L : Notified RN/MD: Pt. (SIMI) (test code = refuse d rpt tst: TESTED 1537) AT [facility] [address] [facility], [address] 30: Mainframe Programmer Analyst/Techni osvaldo ID = [id number] for Faustociro marvin Rayne POCT-GLUCOSE [id number] 07:36:55 Test Item Value Reference Range Interpretation Comments POC-GLUCOSE METER 125 mg/dL 70-110 H : Notified RN/: Pt. (SIMI) (test code = refuse d rpt tst: TESTED 1537) AT [facility] [address] [place], [address]: Mainframe Programmer Analyst/Techni osvaldo ID = [id number] for Anthony arora (contract)Pepe POCT-GLUCOSE [id number] 04:26:34 Test Item Value Reference Range Interpretation Comments POC-GLUCOSE METER 181 mg/dL 70-110 H : TESTED A T [facility] 6720 (BEAKER) (test code = PAUL Tanner [facility], 1538) [address]: Mainframe Programmer Analyst/Techni osvaldo ID = [id number] for MARLEE SCOTT RA BASIC METABOLIC [id number] 04:12:27 Test Item Value Reference Range Interpretation Comments SODIUM (BEAKER) 138 meq/L 136-145 (test code = 381) POTASSIUM 4.6 meq/L 3.5-5.1 (BEAKER) (test code = 379) CHLORIDE (BEAKER) 99 meq/L 98-107 (test code = 382) CO2 (BEAKER) 28 meq/L 22-29 (test code = 355) BLOOD UREA 24 mg/dL 7-21 H NITROGEN (BEAKER) (test code = 354) CREATININE 1.01 mg/dL 0.57-1.25 (BEAKER) (test code = 358) GLUCOSE RANDOM 179 mg/dL 70-105 H (BEAKER) (test code = 652) CALCIUM (BEAKER) 8.8 mg/dL 8.4-10.2 (test code = 697) EGFR (BEAKER) 77 Interpretatio n of eGFR (test code = mL/min/1.73 values Stage D escription 1092) sq m Result G1 Anna Marie l or high >=90 G2 Mildly decreased 60-89 G3a Mildl y to moderately 45-5 9 G3b Moderately to s everely 30-44 G4 Severl y decreased 15-29 G5 Kidney failure <15Reported eGF R is based on the CKD-EPI 2021 equation that d oes not use a race coefficientEsti mated GFR is not as accur ate as Creatinine Ji jerez in predicting glom erular filtration rate . Estimated GFR is not appl icable for dialysis patien ts Mainframe Programmer Analyst ID - VICKIE MCBC W/PLT COUNT & AUTO [id number] 03:44:54 Test Item Value Reference Range Interpretation Comments WHITE BLOOD CELL COUNT (BEAKER) 11.1 K/ L 3.5-10.5 H (test code = 775) RED BLOOD CELL COUNT (BEAKER) 3.09 M/ L 3.93-5.22 L (test code = 761) HEMOGLOBIN (BEAKER) (test code = 9.3 GM/DL 11.2-15.7 L 410) HEMATOCRIT (BEAKER) (test code = 29.5 % 34.1-44.9 L 411) MEAN CORPUSCULAR VOLUME (BEAKER) 96 fL 79-95 H (test code = 753) MEAN CORPUSCULAR HEMOGLOBIN 30.1 pg 25.6-32.2 (BEAKER) (test code = 751) MEAN CORPUSCULAR HEMOGLOBIN CONC 31.5 GM/DL 32.2-35.5 L (BEAKER) (test code = 752) RED CELL DISTRIBUTION WIDTH 13.6 % 11.7-14.4 (BEAKER) (test code = 412) PLATELET COUNT (BEAKER) (test 280 K/CU MM 150-450 code = 756) MEAN [...] (test code = 437) NEUTROPHILS ABSOLUTE COUNT 7.69 K/ L 1.56-6.13 H (BEAKER) (test code = 670) LYMPHOCYTES ABSOLUTE COUNT 2.23 K/ L 1.18-3.74 (BEAKER) (test code = 414) MONOCYTES ABSOLUTE COUNT (BEAKER) 0.80 K/ L 0.24-0.36 H (test code = 415) EOSINOPHILS ABSOLUTE COUNT 0.23 K/ L 0.04-0.36 (BEAKER) (test code = 416) BASOPHILS ABSOLUTE COUNT (BEAKER) 0.03 K/ L 0.01-0.08 (test code = 417) IMMATURE GRANULOCYTES-RELATIVE 1.10 % 0.00-1.00 H PERCENT (BEAKER) (test code = 2801) POCT-GLUCOSE [id number] 17:35:26 Test Item Value Reference Range Interpretation Comments POC-GLUCOSE METER > mg/dL 70-110 HH : Notified RN/MD: TESTED (BEAKER) (test code = [facility] [facility] 1538) [facility], [address] 30: Mainframe Programmer Analyst/Techni osvaldo ID = [id number] for MOISES CANDELARIO POCT-GLUCOSE [id number] 13:31:23 Test Item Value Reference Range Interpretation Comments POC-GLUCOSE METER 141 mg/dL 70-110 H : TESTED A T [facility] 6720 (BEAKER) (test code = [facility], 1538) [address]: Mainframe Programmer Analyst/Techni osvaldo ID = [id number] for MOISES HAIRSTON POCT-GLUCOSE [id number] 13:01:54 Test Item Value Reference Range Interpretation Comments POC-GLUCOSE METER 54 mg/dL 70-110 L : [facility] T [facility] 6720 [facility] (test code = [facility], 153) [address]: Mainframe Programmer Analyst/Techni osvaldo ID = [id number] for MOISES CANDELARIO POCT-GLUCOSE [id number] 07:44:35 Test Item Value Reference Range Interpretation Comments POC-GLUCOSE METER 199 mg/dL 70-110 H : TESTED A T [facility] 6720 (BEAKER) (test code = [facility], 153) [address]: Mainframe Programmer Analyst/Techni osvaldo ID = [id number] for MOISES HAIRSTON BASIC METABOLIC [id number] 05:49:46 Test Item Value Reference Range Interpretation Comments SODIUM (BEAKER) 137 meq/L 136-145 (test code = 381) POTASSIUM 4.7 meq/L 3.5-5.1 Specimen slight ly (BEAKER) (test hemolyzed code = 379) CHLORIDE (BEAKER) 98 meq/L 98-107 (test code = 382) CO2 (BEAKER) 30 meq/L 22-29 H (test code = 355) BLOOD UREA 21 mg/dL 7-21 NITROGEN (BEAKER) (test code = 354) CREATININE 0.96 mg/dL 0.57-1.25 Specimen slight ly (BEAKER) (test hemolyzed code = 358) GLUCOSE RANDOM 141 mg/dL 70-105 H (BEAKER) (test code = 652) CALCIUM (BEAKER) 8.9 mg/dL 8.4-10.2 (test code = 697) EGFR (BEAKER) 82 Interpretatio n of eGFR (test code = mL/min/1.73 values Stage De scription 1092) sq m Result G1 Anna Marie l or high >=90 G2 Mildly decreased 60-89 G3a Mildl y to moderately 45-5 9 G3b Moderately to s everely 30-44 G4 Sever ly decreased 15-29 G5 Kidney failure <15Repo rted eGFR is based on the CKD-EPI 2020 equation t hat does not use a race coefficientEsti mated GFR is not as accur ate as Creatinine Ji shelley in predicting glom erular filtration rate . Estimated GFR is not appl icable for dialysis patien ts Mainframe Programmer Analyst ID - PIAYA LCBC W/PLT COUNT & AUTO [id number] 05:31:11 Test Item Value Reference Range Interpretation Comments WHITE BLOOD CELL COUNT (BEAKER) 12.2 K/ L 3.5-10.5 H (test code = 775) RED BLOOD CELL COUNT (BEAKER) 3.16 M/ L 3.93-5.22 L (test code = 761) HEMOGLOBIN (BEAKER) (test code = 9.7 GM/DL 11.2-15.7 L 410) HEMATOCRIT (BEAKER) (test code = 30.2 % 34.1-44.9 L 411) MEAN CORPUSCULAR VOLUME (BEAKER) 96 fL 79-95 H (test code = 753) MEAN CORPUSCULAR HEMOGLOBIN 30.7 pg 25.6-32.2 (BEAKER) (test code = 751) MEAN CORPUSCULAR HEMOGLOBIN CONC 32.1 GM/DL 32.2-35.5 L (BEAKER) (test code = 752) RED CELL DISTRIBUTION WIDTH 13.2 % 11.7-14.4 (BEAKER) (test code = 412) PLATELET COUNT (BEAKER) (test 282 K/CU MM 150-450 code = 756) MEAN [...] (test code = 437) NEUTROPHILS ABSOLUTE COUNT 8.78 K/ L 1.56-6.13 H (BEAKER) (test code = 670) LYMPHOCYTES ABSOLUTE COUNT 2.22 K/ L 1.18-3.74 (BEAKER) (test code = 414) MONOCYTES ABSOLUTE COUNT (BEAKER) 0.82 K/ L 0.24-0.36 H (test code = 415) EOSINOPHILS ABSOLUTE COUNT 0.17 K/ L 0.04-0.36 (BEAKER) (test code = 416) BASOPHILS ABSOLUTE COUNT (BEAKER) 0.03 K/ L 0.01-0.08 (test code = 417) IMMATURE GRANULOCYTES-RELATIVE 1.20 % 0.00-1.00 H PERCENT (BEAKER) (test code = 2801) POCT-GLUCOSE [id number] 22:19:59 Test Item Value Reference Range Interpretation Comments POC-GLUCOSE METER 212 mg/dL 70-110 H : TESTED A T [facility] 6720 (BEAKER) (test code = [facility], 153) [address]: Mainframe Programmer Analyst/Techni osvaldo ID = [id number] for PRIYANKA GARDINER POCT-GLUCOSE [id number] 18:17:44 Test Item Value Reference Range Interpretation Comments POC-GLUCOSE METER 178 mg/dL 70-110 H : TESTED A T [facility] 6720 (BEAKER) (test code = [facility], 153) [address]: Mainframe Programmer Analyst/Techni osvaldo ID = [id number] for MOISES HAIRSTON POCT-GLUCOSE [id number] 13:03:26 Test Item Value Reference Range Interpretation Comments POC-GLUCOSE METER 306 mg/dL 70-110 H : TESTED A T [facility] 6720 (BEAKER) (test code = [facility], 153) [address]: Mainframe Programmer Analyst/Techni osvaldo ID = [id number] for MOISES HAIRSTON BASIC METABOLIC [id number] 09:10:41 Test Item Value Reference Range Interpretation Comments SODIUM (BEAKER) 134 meq/L 136-145 L (test code = 381) POTASSIUM 4.7 meq/L 3.5-5.1 (BEAKER) (test code = 379) CHLORIDE (BEAKER) 98 meq/L 98-107 (test code = 382) CO2 (BEAKER) 28 meq/L 22-29 (test code = 355) BLOOD UREA 12 mg/dL 7-21 NITROGEN (BEAKER) (test code = 354) CREATININE 1.04 mg/dL 0.57-1.25 (BEAKER) (test code = 358) GLUCOSE RANDOM 281 mg/dL 70-105 H (BEAKER) (test code = 652) CALCIUM (BEAKER) 8.5 mg/dL 8.4-10.2 (test code = 697) EGFR (BEAKER) 74 Interpretatio n of eGFR (test code = mL/min/1.73 values Stage De scription 1092) sq m Result G1 Anna Marie l or high >=90 G2 Mildly decreased 60-89 G3a Mildl y to moderately 45-5 9 G3b Moderately to s everely 30-44 G4 Severl y decreased 15-29 G5 Kidney failure <15Reported eGF R is based on the CKD-EPI 2020 equation that d oes not use a race coefficientEsti mated GFR is not as accur ate as Creatinine Ji jerez in predicting glom erular filtration rate . Estimated GFR is not appl icable for dialysis patien ts Mainframe Programmer Analyst ID - PATRICIA GPOCT-GLUCOSE [id number] 08:08:35 Test Item Value Reference Range Interpretation Comments POC-GLUCOSE METER 209 mg/dL 70-110 H : TESTED A T [facility] 6720 (BEAKER) (test code = [place], 1538) [address]: Mainframe Programmer Analyst/Techni osvaldo ID = [id number] for MOISES HAIRSTON CBC W/PLT COUNT & AUTO [id number] 06:24:42 Test Item Value Reference Range Interpretation Comments WHITE BLOOD CELL COUNT (BEAKER) 9.3 K/ L 3.5-10.5 (test code = 775) RED BLOOD CELL COUNT (BEAKER) 2.99 M/ L 3.93-5.22 L (test code = 761) HEMOGLOBIN (BEAKER) (test code = 9.2 GM/DL 11.2-15.7 L 410) HEMATOCRIT (BEAKER) (test code = 28.9 % 34.1-44.9 L 411) MEAN CORPUSCULAR VOLUME (BEAKER) 97 fL 79-95 H (test code = 753) MEAN CORPUSCULAR HEMOGLOBIN 30.8 pg 25.6-32.2 (BEAKER) (test code = 751) MEAN CORPUSCULAR HEMOGLOBIN CONC 31.8 GM/DL 32.2-35.5 L (BEAKER) (test code = 752) RED CELL DISTRIBUTION WIDTH 13.5 % 11.7-14.4 (BEAKER) (test code = 412) PLATELET COUNT (BEAKER) (test 254 K/CU MM 150-450 code = 756) MEAN PLATELET VOLUME (BEAKER) 12.3 fL 9.4-12.3 (test code = 754) NUCLEATED RED BLOOD CELLS 0 /100 WBC 0-0 (BEAKER) (test code = 413) NEUTROPHILS RELATIVE PERCENT 70 % (BEAKER) (test code = 429) LYMPHOCYTES RELATIVE PERCENT 19 % (BEAKER) (test code = 430) MONOCYTES RELATIVE PERCENT 9 % (BEAKER) (test code = 431) EOSINOPHILS RELATIVE PERCENT 1 % (BEAKER) (test code = 432) BASOPHILS RELATIVE PERCENT 0 % (BEAKER) (test code = 437) NEUTROPHILS ABSOLUTE COUNT 6.47 K/ L 1.56-6.13 H (BEAKER) (test code = 670) LYMPHOCYTES ABSOLUTE COUNT 1.77 K/ L 1.18-3.74 (BEAKER) (test code = 414) MONOCYTES ABSOLUTE COUNT (BEAKER) 0.79 K/ L 0.24-0.36 H (test code = 415) EOSINOPHILS ABSOLUTE COUNT 0.10 K/ L 0.04-0.36 (BEAKER) (test code = 416) BASOPHILS ABSOLUTE COUNT (BEAKER) 0.02 K/ L 0.01-0.08 (test code = 417) IMMATURE GRANULOCYTES-RELATIVE 1.20 % 0.00-1.00 H PERCENT (BEAKER) (test code = 2801) POCT-GLUCOSE [id number] 23:15:54 Test Item Value Reference Range Interpretation Comments POC-GLUCOSE METER 308 mg/dL 70-110 H : TESTED A Jon [facility] 6720 (BEAKER) (test code = [place], 1538) [address]: Mainframe Programmer Analyst/Techni osvaldo ID = [id number] for PRIYANKA GARDINER POCT-GLUCOSE [id number] 20:30:49 Test Item Value Reference Range Interpretation Comments POC-GLUCOSE METER 459 mg/dL 70-110 HH : Notified RN/MD: (KIMERA) (test code = TESTED AT [place] [address]) [facility], [address]: Mainframe Programmer Analyst/Techni osvaldo ID = [id number] for PRIYANKA GARDINER POCT-GLUCOSE [id number] 18:53:16 Test Item Value Reference Range Interpretation Comments POC-GLUCOSE METER > mg/dL 70-110 HH : Will Rep eat Test: ([facility]) (test code = TESTED AT [place] [address]) [facility], [address]: Mainframe Programmer Analyst/Techni osvaldo ID = [id number] for Soiy ianlet (contract), Pur blake POCT-GLUCOSE [id number] 17:11:12 Test Item Value Reference Range Interpretation Comments POC-GLUCOSE METER > mg/dL 70-110 HH : Notified RN/MD: TESTED (KIMERA) (test code = AT [place] [address]508) [facility], 7[address]: Mainframe Programmer Analyst/Techni osvaldo ID = [id number] for Eave s (contract), Cou rtney POCT-GLUCOSE [id number] 14:22:17 Test Item Value Reference Range Interpretation Comments POC-GLUCOSE METER 340 mg/dL 70-110 H : TESTED A T [facility] 6720 ([facility]) (test code [facility], = 153) [address]: Mainframe Programmer Analyst/Techni osvaldo ID = [id number] for Soiy ianlet (contract), Pur blake POCT-GLUCOSE [id number] 12:59:46 Test Item Value Reference Range Interpretation Comments POC-GLUCOSE METER 51 mg/dL 70-110 L : TESTED A T [facility] 6720 ([facility]) (test code = [facility], 153) [address]: Mainframe Programmer Analyst/Techni osvaldo ID = [id number] for Eave s (contract), Cou rtney POCT-GLUCOSE [id number] 12:23:33 Test Item Value Reference Range Interpretation Comments POC-GLUCOSE METER 59 mg/dL 70-110 L : TESTED A T [facility] 6720 (BEAKER) (test code = [place], 1538) [address]: Mainframe Programmer Analyst/Techni osvaldo ID = [id number] for Cinthia gilbert (contract)[facility] [id number] 09:21:23 Test Item Value Reference Range Interpretation Comments Human Metapneumovirus Not detected Not detected, (test code = 53082-4) Equivocal Rhinovirus (test code = Not detected Not detected, 72288-9) Equivocal INFLUENZA A (NO Not detected Not detected, SUBTYPE) (test code = Equivocal 83638-4) Influenza A subtype H1 (test code = 83240-2) Influenza A Subtype H3 (test code = 35397-0) Influenza A Subtype H1-2009 (test code = 17113-2) Influenza B (test code Not detected Not detected, = 96777-8) Equivocal Respiratory Syncytial Not detected Not detected, Virus (test code = Equivocal 00158-6) Parainfluenza Virus 1 Not detected Not detected, (test code = 04576-7) Equivocal Parainfluenza Virus 2 Not detected Not detected, (test code = 29575-5) Equivocal Parainfluenza virus 3 Not detected Not detected, (test code = 16926-8) Equivocal Parainfluenza Virus 4 Not detected Not detected, (test code = 13875-4) Equivocal Adenovirus (test code = Not detected Not detected, 87732-8) Equivocal Coronavirus 229E (test Not detected Not detected, code = 26914-7) Equivocal Coronavirus HKU1 (test Not detected Not detected, code = 52367-7) Equivocal Coronavirus NL63 (test Not detected Not detected, code = 70990-0) Equivocal Coronavirus OC43 (test Not detected Not detected, code = 14633-7) Equivocal Bordetella Pertussis Not detected Not detected, (test code = 03537-8) Equivocal Chlamydophila Not detected Not detected, Pneumoniae (test code = Equivocal 93118-3) Mycoplasma Pneumoniae Not detected Not detected, (test code = 29431-9) Equivocal Severe Acute Not detected Not detected, Sjsvxigcstj-DwV-7 (test Equivocal code = 51758-8) Bordtella Parapertussis Not detected Not detected, (test code = 30365-7) Equivocal DEE (test code = DEE) Other viruses and bacteria not targeted by this PCR panel cannot be excluded; therefore clinical correlation and follow up of serology, culture results, and other molecular studies is required. The results are not intended to be used as the sole means for clinical diagnosis or patient management decisions. This sample was tested at the [facility] using the [employer] Respiratory Panel. It is FDA cleared and has been verified and approved by the [facility] for clinical use on nasopharyngeal swab specimens. The performance of the FilmArray RP has not been established in individuals who received influenza vaccine. Recent administration of a nasal influenza vaccine may cause false positive results for Influenza A and/orInfluenza B. [facility] [id number] 09:21:23 Test Item Value Reference Range Interpretation Comments Human Metapneumovirus Not detected Not detected, (test code = 57251-5) Equivocal Rhinovirus (test code = Not detected Not detected, 16211-9) Equivocal INFLUENZA A (NO Not detected Not detected, SUBTYPE) (test code = Equivocal 28809-1) Influenza A subtype H1 (test code = 65851-1) Influenza A Subtype H3 (test code = 77943-7) Influenza A Subtype H1-2009 (test code = 82867-4) Influenza B (test code Not detected Not detected, = 00109-9) Equivocal Respiratory Syncytial Not detected Not detected, Virus (test code = Equivocal 65338-2) Parainfluenza Virus 1 Not detected Not detected, (test code = 44470-8) Equivocal Parainfluenza Virus 2 Not detected Not detected, (test code = 91283-1) Equivocal Parainfluenza virus 3 Not detected Not detected, (test code = 11262-3) Equivocal Parainfluenza Virus 4 Not detected Not detected, (test code = 30184-3) Equivocal Adenovirus (test code = Not detected Not detected, 87574-3) Equivocal Coronavirus 229E (test Not detected Not detected, code = 89837-3) Equivocal Coronavirus HKU1 (test Not detected Not detected, code = 82168-9) Equivocal Coronavirus NL63 (test Not detected Not detected, code = 84008-2) Equivocal Coronavirus OC43 (test Not detected Not detected, code = 56620-4) Equivocal Bordetella Pertussis Not detected Not detected, (test code = 00224-6) Equivocal Chlamydophila Not detected Not detected, Pneumoniae (test code = Equivocal 51972-3) Mycoplasma Pneumoniae Not detected Not detected, (test code = 74489-8) Equivocal Severe Acute Not detected Not detected, Kvefsacwaao-TlX-4 (test Equivocal code = 85790-4) Bordtella Parapertussis Not detected Not detected, (test code = 37990-3) Equivocal DEE (test code = DEE) Other viruses and bacteria not targeted by this PCR panel cannot be excluded; therefore clinical correlation and follow up of serology, culture results, and other molecular studies is required. The results are not intended to be used as the sole means for clinical diagnosis or patient management decisions. This sample was tested at the [facility] using the [employer] Respiratory Panel. It is FDA cleared and has been verified and approved by the [facility] for clinical use on nasopharyngeal swab specimens. The performance of the FilmArray RP has not been established in individuals who received influenza vaccine. Recent administration of a nasal influenza vaccine may cause false positive results for Influenza A and/orInfluenza B. [facility] [id number] 09:21:23 Test Item Value Reference Range Interpretation Comments Human Metapneumovirus Not detected Not detected, (test code = 60475-0) Equivocal Rhinovirus (test code = Not detected Not detected, 40364-2) Equivocal INFLUENZA A (NO Not detected Not detected, SUBTYPE) (test code = Equivocal 96632-6) Influenza A subtype H1 (test code = 76480-3) Influenza A Subtype H3 (test code = 57735-2) Influenza A Subtype H1-2009 (test code = 21572-7) Influenza B (test code Not detected Not detected, = 69741-4) Equivocal Respiratory Syncytial Not detected Not detected, Virus (test code = Equivocal 36588-9) Parainfluenza Virus 1 Not detected Not detected, (test code = 30351-2) Equivocal Parainfluenza Virus 2 Not detected Not detected, (test code = 23335-8) Equivocal Parainfluenza virus 3 Not detected Not detected, (test code = 34018-9) Equivocal Parainfluenza Virus 4 Not detected Not detected, (test code = 61390-4) Equivocal Adenovirus (test code = Not detected Not detected, 69669-0) Equivocal Coronavirus 229E (test Not detected Not detected, code = 63162-6) Equivocal Coronavirus HKU1 (test Not detected Not detected, code = 87788-9) Equivocal Coronavirus NL63 (test Not detected Not detected, code = 89389-0) Equivocal Coronavirus OC43 (test Not detected Not detected, code = 27012-5) Equivocal Bordetella Pertussis Not detected Not detected, (test code = 06978-5) Equivocal Chlamydophila Not detected Not detected, Pneumoniae (test code = Equivocal 55127-2) Mycoplasma Pneumoniae Not detected Not detected, (test code = 63272-2) Equivocal Severe Acute Not detected Not detected, Ybzwqtwnqfw-PnT-8 (test Equivocal code = 77564-2) Bordtella Parapertussis Not detected Not detected, (test code = 12700-3) Equivocal DEE (test code = DEE) Other viruses and bacteria not targeted by this PCR panel cannot be excluded; therefore clinical correlation and follow up of serology, culture results, and other molecular studies is required. The results are not intended to be used as the sole means for clinical diagnosis or patient management decisions. This sample was tested at the [facility] using the [employer] Respiratory Panel. It is FDA cleared and has been verified and approved by the [facility] for clinical use on nasopharyngeal swab specimens. The performance of the FilmArray RP has not been established in individuals who received influenza vaccine. Recent administration of a nasal influenza vaccine may cause false positive results for Influenza A and/orInfluenza B. [facility] [id number] 09:21:23 Test Item Value Reference Range Interpretation Comments [...] detected, (BEAKER) (test code = 3207) Equivocal SEVERE ACUTE RESPIRATORY Not detected Not detected, [id number]-BPIDZTIZTUY-0 Equivocal (test code = 3099269) BORDETELLA PARAPERTUSSIS Not detected Not detected, (BKR) (test code = 4410667) Equivocal Other viruses and bacteria not targeted by this PCR panel cannot be excluded; therefore clinical correlation and follow up of serology, culture results, and other molecular studies is required. The results are not intended to be used as the sole means for clinical diagnosis or patient management decisions. This sample was tested at the [facility] using the [employer] Respiratory Panel. It is FDA cleared and has been verified and approved by the [facility] for clinical use on nasopharyngeal swab specimens.The performance of the FilmArrayRP has not been established in individuals who received influenza vaccine. Recent administration of a nasal influenza vaccine may cause false positive results for Influenza A and/orInfluenza B.BASIC METABOLIC [id number] 07:35:38 Test Item Value Reference Range Interpretation Comments SODIUM (BEAKER) 128 meq/L 136-145 L (test code = 381) POTASSIUM 4.4 meq/L 3.5-5.1 Specimen slight ly (BEAKER) (test hemolyzed code = 379) CHLORIDE (BEAKER) 95 meq/L 98-107 L (test code = 382) CO2 (BEAKER) 25 meq/L 22-29 (test code = 355) BLOOD UREA 17 mg/dL 7-21 NITROGEN (BEAKER) (test code = 354) CREATININE 1.04 mg/dL 0.57-1.25 Specimen slight ly (BEAKER) (test hemolyzed code = 358) GLUCOSE RANDOM 300 mg/dL 70-105 H (BEAKER) (test code = 652) CALCIUM (BEAKER) 8.8 mg/dL 8.4-10.2 (test code = 697) EGFR (BEAKER) 74 Interpretatio n of eGFR (test code = mL/min/1.73 values Stage De scription 1092) sq m Result G1 Anna Marie l or high >=90 G2 Mildly decreased 60-89 G3a Mildl y to moderately 45-5 9 G3b Moderately to s everely 30-44 G4 Severl y decreased 15-29 G5 Kidne y failure <15Reported eGF R is based on the CKD-EPI 2021 equation that d oes not use a race coefficientEsti mated GFR is not as accur ate as Creatinine Ji shelley in predicting glom erular filtration rate . Estimated GFR is not appl icable for dialysis patien ts Mainframe Programmer Analyst ID - ADMINOperator ID - ADMINOperator ID - ADMINOperator ID - ADMINOperator ID - ADMINOperator ID - ADMINOperator ID - ADMINOperator ID - ADMINOperator ID - ADMINOperator ID - ADMINOperator ID- ADMINOperator ID - ADMINOperator ID - ADMINOperator ID - ADMINOperator ID - ADMINOperator ID - ADMI NOperator ID - ADMINOperator ID - ADMINOperator ID - ADMINOperator ID - ADMINOperator ID - ADMINPOCT-GLUCOSE [id number] 07:30:39 Test Item Value Reference Range Interpretation Comments POC-GLUCOSE METER 208 mg/dL 70-110 H : TESTED A T [facility] 6720 (BEAKER) (test code = [place], 1538) [address]: Mainframe Programmer Analyst/Techni osvaldo ID = [id number] for Ea ves (contract), Cou rtney CBC W/PLT COUNT & AUTO [id number] 05:29:35 Test Item Value Reference Range Interpretation Comments WHITE BLOOD CELL COUNT (BEAKER) 9.9 K/ L 3.5-10.5 (test code = 775) RED BLOOD CELL COUNT (BEAKER) 3.05 M/ L 3.93-5.22 L (test code = 761) HEMOGLOBIN (BEAKER) (test code = 9.3 GM/DL 11.2-15.7 L 410) HEMATOCRIT (BEAKER) (test code = 29.0 % 34.1-44.9 L 411) MEAN CORPUSCULAR VOLUME (BEAKER) 95 fL 79-95 (test code = 753) MEAN CORPUSCULAR HEMOGLOBIN 30.5 pg 25.6-32.2 (BEAKER) (test code = 751) MEAN CORPUSCULAR HEMOGLOBIN CONC 32.1 GM/DL 32.2-35.5 L (BEAKER) (test code = 752) RED CELL DISTRIBUTION WIDTH 13.3 % 11.7-14.4 (BEAKER) (test code = 412) PLATELET COUNT (BEAKER) (test 253 K/CU MM 150-450 code = 756) MEAN [...] (test code = 437) NEUTROPHILS ABSOLUTE COUNT 7.50 K/ L 1.56-6.13 H (BEAKER) (test code = 670) LYMPHOCYTES ABSOLUTE COUNT 1.35 K/ L 1.18-3.74 (BEAKER) (test code = 414) MONOCYTES ABSOLUTE COUNT (BEAKER) 0.87 K/ L 0.24-0.36 H (test code = 415) EOSINOPHILS ABSOLUTE COUNT 0.06 K/ L 0.04-0.36 (BEAKER) (test code = 416) BASOPHILS ABSOLUTE COUNT (BEAKER) 0.02 K/ L 0.01-0.08 (test code = 417) IMMATURE GRANULOCYTES-RELATIVE 0.50 % 0.00-1.00 PERCENT (SIMI) (test code = 2801) POCT-GLUCOSE [id number] 05:16:06 Test Item Value Reference Range Interpretation Comments POC-GLUCOSE METER 272 mg/dL 70-110 H : TESTED A T [facility] 6720 ([facility]) (test code = [facility] T[facility], 1538) [address]: Mainframe Programmer Analyst/Techni osvaldo ID = [id number] for MATTI ESPINOZA POCT-GLUCOSE [id number] 00:07:42 Test Item Value Reference Range Interpretation Comments POC-GLUCOSE METER 349 mg/dL 70-110 H : TESTED A T [facility] 6720 ([facility]) (test code = PAUL Tanner [facility], 1538) [address]: Mainframe Programmer Analyst/Techni osvaldo ID = [id number] for MATTI ESPINOZA POCT-GLUCOSE [id number] 21:20:35 Test Item Value Reference Range Interpretation Comments POC-GLUCOSE METER 487 mg/dL 70-110 HH : Notified RN/MD: ([facility]) (test code = TESTED AT [place] [id number] [facility]) [facility], [address]: Mainframe Programmer Analyst/Techni osvaldo ID = [id number] for MATTI ESPINOZA POCT-GLUCOSE [id number] 19:05:40 Test Item Value Reference Range Interpretation Comments POC-GLUCOSE METER > mg/dL 70-110 HH : Notified RN/MD: TESTED ([facility]) (test code = AT [place] [address]) [facility], [facility] 30: Mainframe Programmer Analyst/Techni osvaldo ID = [id number] for Lukas Aj raeralda POCT-GLUCOSE [id number] 18:00:32 Test Item Value Reference Range Interpretation Comments POC-GLUCOSE METER > mg/dL 70-110 HH : Notified RN/MD: TESTED ([facility]) (test code = AT [place] [id number] [place] [address]) [facility], [facility] 30: Mainframe Programmer Analyst/Techni osvaldo ID = [id number] for MOISES CANDELARIO POCT-GLUCOSE [id number] 17:04:49 Test Item Value Reference Range Interpretation Comments POC-GLUCOSE METER 148 mg/dL 70-110 H : TESTED A T [facility] 6720 ([facility]) (test code [facility], = 1538) [address]: Mainframe Programmer Analyst/Techni osvaldo ID = [id number] for Olve ra, Gina POCT-GLUCOSE [id number] 17:03:59 Test Item Value Reference Range Interpretation Comments POC-GLUCOSE METER < mg/dL 70-110 LL : TESTED A T [facility] 6720 ([facility]) (test code = [facility]anner [facility], 1538) [address]: Mainframe Programmer Analyst/Techni osvaldo ID = [id number] for Olve ra, Gina POCT-GLUCOSE [id number] 16:52:22 Test Item Value Reference Range Interpretation Comments POC-GLUCOSE METER 458 mg/dL 70-110 HH : Notified RN/MD: ([facility]) (test code = TESTED AT [place] [id number]) [facility], [address]: Mainframe Programmer Analyst/Techni osvaldo ID = [id number] for Ea ves (contract), Cou rtney POCT-GLUCOSE [id number] 16:28:59 Test Item Value Reference Range Interpretation Comments POC-GLUCOSE METER 341 mg/dL 70-110 H : TESTED A [place] [address] ([facility]) (test code = [facility] Ciro [facility], 1538) [address]: Mainframe Programmer Analyst/Techni osvaldo ID = [id number] for An g, Leda RAD, CHEST, PA OR AP, 1 [id number] 10:43:00 [facility] 1990 Sex: FFINAL REPORT INDICATION: SOB COMPARISON: 04/30/2022 TECHNIQUE: Single frontal view of the chest. FINDINGS: Lines, tubes, and devices: Right IJ portacatheter tip overlies the atrial caval junction.Lungs and pleura: Interstitial and reticular opacities bilaterally, suggesting pulmonary fibrotic changes. No pneumothorax.Heart and mediastinum: Normal heart size. Unremarkable mediastinal contours.Osseous structures: No acute abnormality.Other: None. IMPRESSION: Interstitial and reticularopacities bilaterally, representing cystic fibrosis, similar to prior exam. Signed: Valeri Mcguire MDReport Verified Date/Time: 08/13/2022 10:43:19 Reading Location: [address] Reading Room AFB culture + smear (sputum only)2022-06-19 11:53:02 Test Item Value Reference Range Interpretation Comments Result (test code = No acid-fast bacilli 6463-4) isolated in 42 days AFB Smear (test code = No acid fast bacilli 97067-9) [facility]2022-06-19 11:53:02 Test Item Value Reference Range Interpretation Comments Result (test code = No acid-fast bacilli 6463-4) isolated in 42 days AFB Smear (test code = No acid fast bacilli 57729-3) [facility]sp[facility] only[facility]2022-06-19 11:53:02 Test Item Value Reference Range Interpretation Comments Result (test code = No acid-fast bacilli 6463-4) isolated in 42 days AFB Smear (test code = No acid fast bacilli 72872-1) [facility] (SPUTUM ONLY)2022-06-19 11:53:02 Test Item Value Reference Range Interpretation Comments CULTURE (BEAKER) (test No acid-fast bacilli code = 1095) isolated in 42 days AFB SMEAR (BEAKER) No acid fast bacilli (test code = 994) seen POCT REAGENT STP/BLD [id number] 15:44:00 Test Item Value Reference Range Interpretation Comments GLUCOSE BLOOD (test code = 2341-6) 70-105 A Lab Interpretation (test code = Abnormal 36844-9) [facility] [id number] 13:28:43 Test Item Value Reference Interpretation Comments Range CULTURE (BEAKER) PSEUDOMONAS A 3+ Pseudomo viki (test code = 1095) AERUGINOSA aeruginos a (MUCOID-PHENOTYPE) (Mucoid-p henotype) Amikacin (test code = See_Comment S [Auto mated 1) message] The system which generated this [...] result as normal/abnormal . Cefepime (test code = See_Comment R [Auto mated 51) message] The system which generated this [...] as normal/abnormal . Doripenem (test code See_Comment S [Autom ated = 100) message] The system which generated this result transmit magdaleno reference range : Susceptible 0-2 , Resistant <0 or >2 . The reference range was not u sed to interpret th is result as normal/abnormal . Gentamicin (test code See_Comment S [Auto mated = 18) message] The system which generated this result transmit magdaleno reference range : Susceptible 0-4 , Resistant <0 or >4 . The reference range was not u sed to interpret th is result as normal/abnormal . Imipenem (test code = See_Comment R [Auto mated 19) message] The system which generated this [...] as normal/abnormal . Meropenem (test code See_Comment S [Autom ated = 34) message] The system which generated this result transmit magdaleno reference range : Susceptible 0-2 , Resistant <0 or >2 . The reference range was not u sed to interpret th is result as normal/abnormal . Piperacillin (test See_Comment S [Automat ed code = 24) message] The system which generated this result transmit magdaleno reference range : Susceptible 0-1 6 , Resistant <0 or >16 . The reference range was not used to interpret this result as normal/abnormal . Piperacillin + See_Comment S [Automated Tazobactam (test code messag e] The = 29) system which generated this result transmit magdaleno reference range : Susceptible 0-1 6 , Resistant <0 or >16 . The reference range was not used to interpret this result as normal/abnormal . Tobramycin (test code See_Comment S [Auto mated = 25) message] The system which generated this result transmit magdaleno reference range : Susceptible 0-4 , Resistant <0 or >4 . The reference range was not u sed to interpret th is result as normal/abnormal . CULTURE (BEAKER) STAPHYLOCOCCUS A 2+ Staphy lococcus (test code = 1095) AUREUS aureus Clindamycin (test S code = 10) Erythromycin (test S code = 4) Linezolid (test code S = 40) Nitrofurantoin (test S code = 23) Oxacillin (test code S = 14) Rifampin (test code = S 43) Tetracycline (test S code = 2) Trimethoprim + S Sulfamethoxazole (test code = 47) Vancomycin (test code S = 13) CULTURE (BEAKER) PSEUDOMONAS A 2+ Pseudomo viki (test code = 1095) AERUGINOSA aeruginos aof a second type Amikacin (test code = See_Comment S [Auto mated 1) message] The system which generated this [...] result as normal/abnormal . Cefepime (test code = See_Comment S [Auto mated 51) message] The system which generated this [...] as normal/abnormal . Doripenem (test code See_Comment S [Autom ated = 100) message] The system which generated this result transmit magdaleno reference range : Susceptible 0-2 , Resistant <0 or >2 . The reference range was not u sed to interpret th is result as normal/abnormal . Gentamicin (test code See_Comment R [Auto mated = 18) message] The system which generated this result transmit magdaleno reference range : Susceptible 0-4 , Resistant <0 or >4 . The reference range was not u sed to interpret th is result as normal/abnormal . Imipenem (test code = See_Comment R [Auto mated 19) message] The system which generated this [...] result as normal/abnormal . Piperacillin (test See_Comment S [Automat ed code = 24) message] The system which generated this result transmit magdaleno reference range : Susceptible 0-1 6 , Resistant <0 or >16 . The reference range was not used to interpret this result as normal/abnormal . Piperacillin + See_Comment S [Automated Tazobactam (test code messag e] The = 29) system which generated this result transmit magdaleno reference range : Susceptible 0-1 6 , Resistant <0 or >16 . The reference range was not used to interpret this result as normal/abnormal . Tobramycin (test code See_Comment S [Auto mated = 25) message] The system which generated this result transmit magdaleno reference range : Susceptible 0-4 , Resistant <0 or >4 . The reference range was not u sed to interpret th is result as normal/abnormal . 4+ Normal respiratory derick presentHCG, QUANTITATIVE, [id number] 03:57:20 Test Item Value Reference Range Interpretation Comments GONADOTROPIN, CHORIONIC (HCG) QUANT < mIU/mL 0-10 (BEAKER) (test code = 649) Non- Females: <10 mIU/mL Females: Gestation Age Reference Range(mIU/mL) 0.2-1 Week 5-50 1-2 Weeks 50-500 2-3 Weeks 100-5,000 3-4 Weeks 500-10,000 4-5 Weeks 1,000-50,000 5-6 Weeks 10,000-100,000 6-8 Weeks 15,000- 200,000 2-3 Months 10,000-100,000 Mainframe Programmer Analyst VALERIE ARIAS, [id number] 03:44:24 Test Item Value Reference Range Interpretation Comments KETONES, BLOOD (BEAKER) (test code 0.1 mmol/L <0.4 = 1103) BASIC METABOLIC [id number] 03:31:45 Test Item Value Reference Range Interpretation Comments SODIUM (BEAKER) 139 meq/L 136-145 (test code = 381) POTASSIUM (BEAKER) 4.1 meq/L 3.5-5.1 (test code = 379) CHLORIDE (BEAKER) 104 meq/L 98-107 (test code = 382) CO2 (BEAKER) (test 28 meq/L 22-29 code = 355) BLOOD UREA NITROGEN 11 mg/dL 7-21 (BEAKER) (test code = 354) CREATININE (BEAKER) 0.90 mg/dL 0.57-1.25 (test code = 358) GLUCOSE RANDOM 96 mg/dL 70-105 (BEAKER) (test code = 652) CALCIUM (BEAKER) 8.5 mg/dL 8.4-10.2 (test code = 697) EGFR (BEAKER) (test 90 mL/min/1.73 ESTIMA MAGDALENO GFR IS code = 1092) sq m NOT ACCURATE CREATININE CLEARANCE IN PREDICTING GLOMERULAR FILTRATION RATE . ESTIMATED GFR I S NOT APPLICABLE FOR DIALYSIS PATIEN TS. Mainframe Programmer Analyst ID - VICKIE MPOC-Glucose [id number] 03:05:46 Test Item Value Reference Range Interpretation Comments POC-Glucose Meter (test 89 mg/dL 70-110 : TE STED AT [facility] code = 1538) 67[address] [facility], 770 30: Mainframe Programmer Analyst/Techni osvaldo ID = [id number] for Mukadam, Ben Lab Interpretation (test Normal code = 35214-1) [facility]GLU[facility]SE [id number] 03:05:46 Test Item Value Reference Range Interpretation Comments POC-GLUCOSE METER 89 mg/dL 70-110 : [facility] (BEAKER) (test code = [facility], 1538) 20806: Mainframe Programmer Analyst/Techni osvaldo ID = [id number] for Jamey dam, Ben POCT-GLUCOSE [id number] 21:48:12 Test Item Value Reference Range Interpretation Comments POC-GLUCOSE METER 160 mg/dL 70-110 H : TESTED A T [facility] 6720 (BEAKER) (test code = [facility], 1538) 90555: Mainframe Programmer Analyst/Techni osvaldo ID = [id number] for CTORIAN, JENNIFER POCT-GLUCOSE [id number] 21:24:49 Test Item Value Reference Range Interpretation Comments POC-GLUCOSE METER 122 mg/dL 70-110 H : TESTED A T [facility] 6720 (BEAKER) (test code = [facility], 1538) 49067: Mainframe Programmer Analyst/Techni osvaldo ID = [id number] for CTORIAN, JENNIFER POCT-GLUCOSE [id number] 20:56:04 Test Item Value Reference Range Interpretation Comments POC-GLUCOSE METER 89 mg/dL 70-110 : TESTED A T [facility] 6720 (BEAKER) (test code = PA[facility] T[facility], 1538) 49059: Mainframe Programmer Analyst/Techni osvaldo ID = [id number] for JENNIFER GONSALES POCT-GLUCOSE [id number] 20:36:29 Test Item Value Reference Range Interpretation Comments POC-GLUCOSE METER 51 mg/dL 70-110 L : TESTED A T [facility] 6720 (BEAKER) (test code = PA[facility] T[facility], 1538) 99196: Mainframe Programmer Analyst/Techni osvaldo ID = [id number] for Ulises en, Tram SPIN/CONCENTRATION [id number] 10:32:27 Test Item Value Reference Range Interpretation Comments Concentration charged (test code = Done 2657) [facility] [id number] 10:32:27 Test Item Value Reference Range Interpretation Comments Concentration charged (test code = Done 2657) [facility] [id number] 10:32:27 Test Item Value Reference Range Interpretation Comments Concentration charged (test code = Done 2657) [facility] [id number] 10:32:27 Test Item Value Reference Range Interpretation Comments CONCENTRATION CHARGED (BEAKER) (test Done code = 2657) RAD, CHEST, 2 [id number] 17:27:00Reason for Exam:->Cystic fibrosis with pulmonary manifestations [facility] 1990 Sex: FFINAL REPORT TECHNIQUE: Frontal and lateral views of the chest. INDICATION: Cystic fibrosis with pulmonary manifestations COMPARISON: 08/29/2019 FINDINGS: LINES/TUBES: Right IJ port with catheter tip projected over the right atrium, unchanged. LUNGS: Upper lung predominant bronchiectasis and interstitial prominence, as before. No focal consolidative process or pulmonary edema. PLEURA : No pleural effusion or pneumothorax. HEART AND MEDIASTINUM: The cardiomediastinal contour within normal limits. SOFT TISSUES AND BONES: Unremarkable. IMPRESSION:Upper lobe predominant bronchiectasis with associated interstitial prominence similar in appearance compared to the prior examination. No acute focal consolidative process or pulmonary edema. Signed: Nabila Khan MDReport Verified Date/Time: 04/30/2022 17:27:51 RAD, BONE DENSITY STUDY 2022-04-30 13:49:00Reason for Exam:->Vitamin D deficiency [facility] 1990 Sex: FFINAL REPORT Bone Mineral Density, 04/30/2022. Clinical History: 31-year-old female, Osteoporosis Screening Comparison: None available. Discussion: Evaluation of the left hip and lumbar spine was performed using a Horizon W DXA bone densitometer. The study is technically adequate. Thepatient's fracture risk is compared to the age matched control. Findings: Bone Mineral Density Measurement (BMD) -Lumbar Spine: 0.939 gm/pr8Rvnn Femoral Neck: 0.595 gm/cm2 Standard Deviation as compared to the young adult population (T -score)-Lumbar Spine: -1.9 Left Femoral Neck: -2.5 Standard Deviation as compared to the age matched controls (Z-score)-Lumbar Spine: -1.9Left Femoral Neck: -2.4 IMPRESSION:These findings are consistent with osteoporosis. Fracture risk is high. Treatment is advised. Compared to the prior exam, the bone mineral density of the lumbar spine has increased 9.1%. The bone mineral density of the left femoral neck has increased 3%. Diagnostic criteria (World Health Organizat ion)-Normal: T score at or above -1.0 SDOsteopenia: T score between -1.0 and - 2.5 SDOsteoporosis: T score at or below -2.5 SDSevere osteoporosis: Osteoporosis and one or more fragility fractures Signed: Jerald Macias MDReport Verified Date/Time: 04/30/2022 13:49:32 Reading Location: [facility] Radiology Reading Room AFB CULTURE + SMEAR (SPUTUM ONLY)2022-01-30 15:11:29 Test Item Value Reference Range Interpretation Comments CULTURE (BEAKER) (test No acid-fast bacilli code = 1095) isolated in 42 days AFB SMEAR (BEAKER) No acid fast bacilli (test code = 994) seen Fungus culture + [id number] 17:43:53 Test Item Value Reference Range Interpretation Comments Result (test code = <1+ [place] A 6463-4) dubliniensis Fungus Smear (test code No fungi seen = 1406) Lab Interpretation (test Abnormal code = 75179-7) [facility] campusFungus culture + [id number] 17:43:53 Test Item Value Reference Range Interpretation Comments Result (test code = <1+ [place] A 6463-4) dubliniensis Fungus Smear (test code No fungi seen = 1406) Lab Interpretation (test Abnormal code = 65916-6) [facility] campusFungus culture + [id number] 17:43:53 Test Item Value Reference Range Interpretation Comments Result (test code = <1+ [place] A 6463-4) dubliniensis Fungus Smear (test code No fungi seen = 1406) Lab Interpretation (test Abnormal code = 75484-0) [facility] campusFungus culture + [id number] 17:43:53 Test Item Value Reference Range Interpretation Comments Result (test code = <1+ [place] A 6463-4) dubliniensis Fungus Smear (test code No fungi seen = 1406) Lab Interpretation (test Abnormal code = 72209-7) [facility] campusFUNGUS CULTURE + [id number] 17:43:53 Test Item Value Reference Range Interpretation Comments CULTURE (BEAKER) A <1+ [place] (test code = 1095) dublin[place] sis FUNGUS SMEAR No fungi seen (BEAKER) (test code = 1406) CF RESPIRATORY [id number] 11:45:36 Test Item Value Reference Interpretation Comments Range CULTURE (BEAKER) STAPHYLOCOCCUS A <1+ Staph ylococcus (test code = 1095) AUREUS aureus Clindamycin (test S code = 10) Erythromycin (test S code = 4) Linezolid (test code S = 40) Nitrofurantoin (test S code = 23) Oxacillin (test code S = 14) Rifampin (test code = S 43) Tetracycline (test S code = 2) Trimethoprim + S Sulfamethoxazole (test code = 47) Vancomycin (test code S = 13) 4+ Normal respiratory derick presentSPIN/CONCENTRATION [id number] 09:18:52 Test Item Value Reference Range Interpretation Comments CONCENTRATION CHARGED (BEAKER) (test Done code = 2657) AFB CULTURE + SMEAR (SPUTUM ONLY)2021-02-18 13:50:00 Test Item Value Reference Range Interpretation Comments CULTURE (BEAKER) (test No acid-fast bacilli code = 1095) isolated in 42 days AFB SMEAR (BEAKER) No acid fast bacilli (test code = 994) seen FUNGUS CULTURE + [id number] 00:23:00 Test Item Value Reference Range Interpretation Comments CULTURE (BEAKER) A <1+ [place] (test code = 1095) [place] sis FUNGUS SMEAR No fungi seen (BEAKER) (test code = 1406) CF RESPIRATORY [id number] 12:32:00 Test Item Value Reference Range Interpretation [...] normal/abnormal . 4+ Normal respiratory derick presentSPIN/CONCENTRATION [id number] 08:27:00 Test Item Value Reference Range Interpretation Comments CONCENTRATION CHARGED (BEAKER) (test Done code = 2657) SPIROMETRY (IN CLINIC)2021-01-06 16:00:00Marco Smith MD 01/06/2021 1:03 PMPlease see graphic report for final interpretation. Date of testDate of test: 01/06/2167HSW4WBK1: 1.15 LFEV1 % EXP: 45 %FVCFVC: 2.31 LFVC % EXPECT: 77 %FEV1 / FVCFEV1 / FVC: 0.53 %FEV1 / FVC % EXP: 61 %FEFFEF 25-75%: 0.44 l/minFEF % EXPEC: 14 %[facility] WITHOUT IV [id number] 09:14:00 FINAL REPORT MR, BRAIN, WITHOUT IV CONTRAST HISTORY: Headache COMPARISON: Intracranial MRA/MRV 03/26/2017, head CT 03/24/2017; cervical spine CT 06/02/2019; MRI of the brain/orbits 03/26/2017; cervical spine MRI 03/09/2015 TECHNIQUE:Sagittal T2, axial T2, axial T1, axial T2/FLAIR, axial gr adient echo (or susceptibility weighted), coronal T2/FLAIR, and [...] magnum. Associated 7 mm focal syrinx at C3- C4 is present.Incidental findings: Mild scattered paranasal sinus mucosal thickening. 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 Signed: German Morfin MDRepcox [place] Verified Date/Time: 04/04/2020 09:14:42 Reading Location: [facility] Reading Room [address] [place] [address] SPIROMETRY (IN CLINIC)2019-12-21 16:00:00Tere Diaz NP 12/21/2019 11:14 AMPlease see graphic report for final interpretation. Date of te stDate of test: 12/21/1941AAH0UBK2: 1.19 LFEV1 % EXP: 47 %FVCFVC: 2.01 LFVC % EXPECT: 69 %FEV1 / FVCFEV1 / FVC: 0.6 %FEV1 / FVC % EXP: 70 %FEFFEF 25-75%: 0.55 l/minFEF % EXPEC: 18 %[facility]AF[facility] (NON-SPUTUM) 2019-12-18 15:21:00 Test Item Value Reference Range Interpretation Comments CULTURE (BEAKER) (test No acid-fast bacilli code = 1095) isolated in 42 days AFB SMEAR (BEAKER) No acid fast bacilli (test code = 994) seen FUNGUS CULTURE + [id number] 17:07:00 Test Item Value Reference Range Interpretation Comments CULTURE (BEAKER) A 2+ [place] (test code = 1095) ashlynlinsaadia sis FUNGUS SMEAR No fungi seen (BEAKER) (test code = 1406) CF RESPIRATORY [id number] 07:18:00 Test Item Value Reference Range Interpretation [...] or >4 4+ Normal respiratory derick presentSPIN/CONCENTRATION [id number] 01:32:00 Test Item Value Reference Range Interpretation Comments CONCENTRATION CHARGED (BEAKER) (test Done code = 2657) AFB CULTURE + [id number] 11:55:00 Test Item Value Reference Range Interpretation Comments CULTURE (BEAKER) (test No acid-fast bacilli code = 1095) isolated in 42 days AFB SMEAR (BEAKER) No acid fast bacilli (test code = 994) seen HEMOGLOBIN [id number] 09:08:00 Test Item Value Reference Range Interpretation Comments HEMOGLOBIN A1C (BEAKER) (test code = 11.1 % 4.3-6.1 H 368) FUNGUS CULTURE + [id number] 17:41:00 Test Item Value Reference Range Interpretation Comments CULTURE (BEAKER) A 1+ [place] (test code = 1095) lisa frank FUNGUS SMEAR No fungi seen (BEAKER) (test code = 1406) POCT-GLUCOSE [id number] 12:02:00 Test Item Value Reference Range Interpretation Comments POC-GLUCOSE METER 89 mg/dL 70-110 : TESTED A T [facility] 6720 (BEAKER) (test code = [facility] C[facility], 1538) 76199: Mainframe Programmer Analyst/Techni osvaldo ID = [id number] for Ibra him, Serkialem POCT-GLUCOSE [id number] 08:32:00 Test Item Value Reference Range Interpretation Comments POC-GLUCOSE METER 101 mg/dL 70-110 : TESTED A T [facility] 6720 (BEAKER) (test code [facility], = 1538) 95560: Mainframe Programmer Analyst/Techni osvaldo ID = [id number] for Ibra him, Serkialem [id number] 06:13:00 Test Item Value Reference Range Interpretation Comments PHOSPHORUS (BEAKER) (test code = 4.0 mg/dL 2.3-4.7 604) [id number] 06:13:00 Test Item Value Reference Range Interpretation Comments MAGNESIUM (BEAKER) (test code = 1.8 mg/dL 1.6-2.6 627) BASIC METABOLIC [id number] 06:13:00 Test Item Value Reference Range Interpretation [...] NOT APPLICABLE FOR DIALYSIS PATIEN TS. CALCIUM, [id number] 05:13:00 Test Item Value Reference Range Interpretation Comments CALCIUM IONIZED (BEAKER) (test 1.03 mmol/L 1.12-1.27 L code = 698) PH, BLOOD (BEAKER) (test code = 7.39 1810) CBC W/PLT COUNT & AUTO [id number] 04:34:00 Test Item Value Reference Range Interpretation [...] PERCENT (BEAKER) (test code = 2801) POCT-GLUCOSE [id number] 22:25:00 Test Item Value Reference Range Interpretation Comments POC-GLUCOSE METER 297 mg/dL 70-110 H : TESTED Mey Cooney [facility] 6720 (BEAKER) (test code = [place] [place], 1538) 81029: Mainframe Programmer Analyst/Techni osvaldo ID = [id number] for SP ARKS, GRIFFIN POCT-GLUCOSE [id number] 17:01:00 Test Item Value Reference Range Interpretation Comments POC-GLUCOSE METER 173 mg/dL 70-110 H : TESTED A T [facility] 6720 (BEAKER) (test code = [facility], 1538) 36000: Mainframe Programmer Analyst/Techni osvaldo ID = [id number] for CA STRO, HALIMA POCT-GLUCOSE [id number] 12:08:00 Test Item Value Reference Range Interpretation Comments POC-GLUCOSE METER 140 mg/dL 70-110 H : TESTED A T [facility] 6720 (BEAKER) (test code = [facility], 1538) 63182: Mainframe Programmer Analyst/Techni osvaldo ID = [id number] for CA STRO, HALIMA POCT-GLUCOSE [id number] 08:20:00 Test Item Value Reference Range Interpretation Comments POC-GLUCOSE METER 89 mg/dL 70-110 : TESTED A T [facility] 6720 (BEAKER) (test code = [facility], 1538) 00594: Mainframe Programmer Analyst/Techni osvaldo ID = [id number] for CAST RO, HALIMA [id number] 07:03:00 Test Item Value Reference Range Interpretation Comments PHOSPHORUS (BEAKER) (test code = 4.5 mg/dL 2.3-4.7 604) [id number] 07:03:00 Test Item Value Reference Range Interpretation Comments MAGNESIUM (BEAKER) (test code = 1.7 mg/dL 1.6-2.6 627) COMPREHENSIVE METABOLIC [id number] 07:03:00 Test Item Value Reference Range Interpretation [...] PATIEN TS. CBC W/PLT COUNT & AUTO [id number] 06:17:00 Test Item Value Reference Range Interpretation [...] PERCENT (BEAKER) (test code = 2801) CALCIUM, [id number] 05:53:00 Test Item Value Reference Range Interpretation Comments CALCIUM IONIZED (BEAKER) (test 1.10 mmol/L 1.12-1.27 L code = 698) PH, BLOOD (BEAKER) (test code = 7.40 1810) POCT-GLUCOSE [id number] 21:39:00 Test Item Value Reference Range Interpretation Comments POC-GLUCOSE METER 260 mg/dL 70-110 H : TESTED A T [facility] 6720 (BEAKER) (test code = [facility] 1538[facility] 34718: Mainframe Programmer Analyst/Techni osvaldo ID = [id number] for SP GRIFFIN FOY UPPER RESPIRATORY [id number] 20:25:00 Test Item Value Reference Range Interpretation Comments CULTURE (BEAKER) 2+ Normal respiratory (test code = 1095) derick present POCT-GLUCOSE [id number] 17:23:00 Test Item Value Reference Range Interpretation Comments POC-GLUCOSE METER 118 mg/dL 70-110 H : TESTED A T [facility] 6720 (BEAKER) (test code = [facility], 1538) 26787: Mainframe Programmer Analyst/Techni osvaldo ID = [id number] for CA STRO, HALIMA POCT-GLUCOSE [id number] 12:04:00 Test Item Value Reference Range Interpretation Comments POC-GLUCOSE METER 157 mg/dL 70-110 H : TESTED A T [facility] 6720 (BEAKER) (test code = [facility], 1538) 17569: Mainframe Programmer Analyst/Techni osvaldo ID = [id number] for CA STRO, HALIMA HEPATIC FUNCTION [id number] 10:56:00 Test Item Value Reference Range Interpretation [...] = 150 U/L 6-55 H 347) POCT-GLUCOSE [id number] 07:54:00 Test Item Value Reference Range Interpretation Comments POC-GLUCOSE METER 113 mg/dL 70-110 H : TESTED A T [facility] 6720 (BEAKER) (test code = [facility], 1538) 63645: Mainframe Programmer Analyst/Techni osvaldo ID = [id number] for CA STRO, HALIMA [id number] 06:57:00 Test Item Value Reference Range Interpretation Comments PHOSPHORUS (BEAKER) (test code = 3.9 mg/dL 2.3-4.7 604) [id number] 06:57:00 Test Item Value Reference Range Interpretation Comments MAGNESIUM (BEAKER) (test code = 1.7 mg/dL 1.6-2.6 627) BASIC METABOLIC [id number] 06:57:00 Test Item Value Reference Range Interpretation [...] PATIEN TS. CBC W/PLT COUNT & AUTO [id number] 06:56:00 Test Item Value Reference Range Interpretation [...] PERCENT (BEAKER) (test code = 2801) CALCIUM, [id number] 05:52:00 Test Item Value Reference Range Interpretation Comments CALCIUM IONIZED (BEAKER) (test 1.07 mmol/L 1.12-1.27 L code = 698) PH, BLOOD (BEAKER) (test code = 7.45 1810) POCT-GLUCOSE [id number] 21:54:00 Test Item Value Reference Range Interpretation Comments POC-GLUCOSE METER 223 mg/dL 70-110 H : TESTED A T [facility] 6720 (BEAKER) (test code = [facility], 1538) 04709: Mainframe Programmer Analyst/Techni osvaldo ID = [id number] for LYNSEY BROWN POCT-GLUCOSE [id number] 17:26:00 Test Item Value Reference Range Interpretation Comments POC-GLUCOSE METER 179 mg/dL 70-110 H : TESTED A T [facility] 6720 (BEAKER) (test code = [facility], 1538) 99497: Mainframe Programmer Analyst/Techni osvaldo ID = [id number] for Fabio Bello CF RESPIRATORY [id number] 17:18:00 Test Item Value Reference Range Interpretation [...] = 25) Resistant <0 or >4 CULTURE (XetalAKER) PSEUDOMONAS A 2+ Pseudomo viki (test code [...] = 25) Resistant <0 or >4 CULTURE ([facility]) PSEUDOMONAS A 2+ Pseudomo viki (test code [...] = 25) Resistant <0 or >4 POCT-GLUCOSE [id number] 12:52:00 Test Item Value Reference Range Interpretation Comments POC-GLUCOSE METER 147 mg/dL 70-110 H : TESTED [place] [address] ([facility]) (test code = [facility], 1538) 32873: Mainframe Programmer Analyst/Techni osvaldo ID = [id number] for Fabio Bello POCT-GLUCOSE [id number] 10:05:00 Test Item Value Reference Range Interpretation Comments POC-GLUCOSE METER 61 mg/dL 70-110 L : Pt. refu sed rpt tst: (MERA) (test code = TESTED AT [facility] 6720 1538) [facility], [address]: Mainframe Programmer Analyst/Techni osvaldo ID = [id number] for Fabio Wright [id number] 07:55:00 Test Item Value Reference Range Interpretation Comments MAGNESIUM (BEAKER) 1.6 mg/dL 1.6-2.6 Specimen slightly (test code = 627) hemolyzed [id number] 07:55:00 Test Item Value Reference Range Interpretation Comments PHOSPHORUS (BEAKER) 3.9 mg/dL 2.3-4.7 Specimen slightly (test code = 604) hemolyzed BASIC METABOLIC [id number] 07:55:00 Test Item Value Reference Range Interpretation [...] PATIEN TS. CBC W/PLT COUNT & AUTO [id number] 06:43:00 Test Item Value Reference Range Interpretation [...] PERCENT (BEAKER) (test code = 2801) CALCIUM, [id number] 06:28:00 Test Item Value Reference Range Interpretation Comments CALCIUM IONIZED (BEAKER) (test 1.05 mmol/L 1.12-1.27 L code = 698) PH, BLOOD (BEAKER) (test code = 7.31 1810) POCT-GLUCOSE [id number] 21:46:00 Test Item Value Reference Range Interpretation Comments POC-GLUCOSE METER 356 mg/dL 70-110 H : TESTED A T [facility] 6720 (BEAKER) (test code = [place], 1538) 33820: Mainframe Programmer Analyst/Techni osvaldo ID = [id number] for BRITTNEE RODRIGUEZ POCT-GLUCOSE [id number] 17:55:00 Test Item Value Reference Range Interpretation Comments POC-GLUCOSE METER 300 mg/dL 70-110 H : TESTED A T [facility] 6720 (BEAKER) (test code = [facility], 1538) 88793: Mainframe Programmer Analyst/Techni osvaldo ID = [id number] for JEANETTE CHAVES POCT-GLUCOSE [id number] 12:19:00 Test Item Value Reference Range Interpretation Comments POC-GLUCOSE METER 176 mg/dL 70-110 H : TESTED A T [facility] 6720 (BEAKER) (test code = [facility], 1538) 27387: Mainframe Programmer Analyst/Techni osvaldo ID = [id number] for SALOMÓN LEMOS POCT-GLUCOSE [id number] 07:45:00 Test Item Value Reference Range Interpretation Comments POC-GLUCOSE METER 198 mg/dL 70-110 H : TESTED A T [facility] 6720 (BEAKER) (test code = [facility], 1538) 16527: Mainframe Programmer Analyst/Techni osvaldo ID = [id number] for JAKUB LEMOSINE CALCIUM, [id number] 07:36:00 Test Item Value Reference Range Interpretation Comments CALCIUM IONIZED (BEAKER) (test 1.16 mmol/L 1.12-1.27 code = 698) PH, BLOOD (BEAKER) (test code = 7.31 1810) CBC W/PLT COUNT & AUTO [id number] 04:03:00 Test Item Value Reference Range Interpretation [...] 0-1 PERCENT (BEAKER) (test code = 2801) [id number] 03:49:00 Test Item Value Reference Range Interpretation Comments PHOSPHORUS (BEAKER) (test code = 3.8 mg/dL 2.3-4.7 604) [id number] 03:49:00 Test Item Value Reference Range Interpretation Comments MAGNESIUM (BEAKER) (test code = 2.0 mg/dL 1.6-2.6 627) BASIC METABOLIC [id number] 03:49:00 Test Item Value Reference Range Interpretation [...] NOT APPLICABLE FOR DIALYSIS PATIEN TS. POCT-GLUCOSE [id number] 22:24:00 Test Item Value Reference Range Interpretation Comments POC-GLUCOSE METER 401 mg/dL 70-110 HH : Notified RN/MD: ([facility]) (test code = TESTED AT [facility] 6720 1537) [facility], [address]: Mainframe Programmer Analyst/Techni osvaldo ID = [id number] for SP GRIFFIN FOY BLOOD [id number] 19:01:00 Test Item Value Reference Range Interpretation Comments CULTURE (BEAKER) (test No growth in 5 days code = 1095) BLOOD [id number] 19:01:00 Test Item Value Reference Range Interpretation Comments CULTURE (BEAKER) (test No growth in 5 days code = 1095) POCT-GLUCOSE [id number] 17:12:00 Test Item Value Reference Range Interpretation Comments POC-GLUCOSE METER 381 mg/dL 70-110 H : [facility] ([facility]) (test code = [facility], 1538) [address]: Mainframe Programmer Analyst/Techni osvaldo ID = [id number] for CA CASANDRA HALIMA POCT-GLUCOSE [id number] 12:19:00 Test Item Value Reference Range Interpretation Comments POC-GLUCOSE METER 129 mg/dL 70-110 H : TESTED A T [facility] 6720 (BEAKER) (test code = [facility], 1538) [address]: Mainframe Programmer Analyst/Techni osvaldo ID = [id number] for CA STRO, HALIMA POCT-GLUCOSE [id number] 08:14:00 Test Item Value Reference Range Interpretation Comments POC-GLUCOSE METER 72 mg/dL 70-110 : [facility] 67[facility] (BEAKER) (test code = PAUL Tanner [facility], 1538) [address]: Mainframe Programmer Analyst/Techni osvaldo ID = [id number] for CAST RO, HALIMA CALCIUM, [id number] 07:16:00 Test Item Value Reference Range Interpretation Comments CALCIUM IONIZED (BEAKER) (test 1.18 mmol/L 1.12-1.27 code = 698) PH, BLOOD (BEAKER) (test code = 7.35 1810) [id number] 05:01:00 Test Item Value Reference Range Interpretation Comments PHOSPHORUS (BEAKER) (test code = 3.0 mg/dL 2.3-4.7 604) [id number] 05:01:00 Test Item Value Reference Range Interpretation Comments MAGNESIUM (BEAKER) (test code = 1.4 mg/dL 1.6-2.6 L 627) BASIC METABOLIC [id number] 05:01:00 Test Item Value Reference Range Interpretation [...] PATIEN TS. CBC W/PLT COUNT & AUTO [id number] 04:54:00 Test Item Value Reference Range Interpretation [...] PERCENT (BEAKER) (test code = 2801) POCT-GLUCOSE [id number] 22:39:00 Test Item Value Reference Range Interpretation Comments POC-GLUCOSE METER 434 mg/dL 70-110 HH : Notified RN/MD: ([facility]) (test code = TESTED AT [place] [address] 153) [facility], [address]: Mainframe Programmer Analyst/Techni osvaldo ID =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 [id number] 07:20:00 Test Item Value Reference Range Interpretation [...] PERCENT (BEAKER) (test code = 2801) POCT-GLUCOSE [id number] 06:18:00 Test Item Value Reference Range Interpretation Comments POC-GLUCOSE METER 174 mg/dL 70-110 H TESTED AT [place] [address] ([facility]) (test code = PAUL Tanner [facility] 1538) [address] POCT-GLUCOSE [id number] 00:56:00 Test Item Value Reference Range Interpretation Comments POC-GLUCOSE METER 398 mg/dL 70-110 H TESTED AT [place] [address] ([facility]) (test code = PAUL Tanner [facility] 1538) [address] POCT-GLUCOSE [id number] 21:15:00 Test Item Value Reference Range Interpretation Comments POC-GLUCOSE METER 85 mg/dL 70-110 TESTED AT [place] [address] ([facility]) (test code = PAUL Tanner [facility] [address] 1538) POCT-GLUCOSE [id number] 17:21:00 Test Item Value Reference Range Interpretation Comments POC-GLUCOSE METER 196 mg/dL 70-110 H TESTED AT [place] [address] ([facility]) (test code = PAUL Tanner [facility] 1538) [address] POCT-GLUCOSE [id number] 15:31:00 Test Item Value Reference Range Interpretation Comments POC-GLUCOSE METER 428 mg/dL 70-110 HH TESTED AT [place] [address] ([facility]) (test code = PAUL Tanner [facility] 1538) [address] POCT-GLUCOSE [id number] 12:04:00 Test Item Value Reference Range Interpretation Comments POC-GLUCOSE METER 81 mg/dL 70-110 TESTED AT [place] [address] ([facility]) (test code = [facility] Ciro [facility] [address] 1538) BLOOD GAS, [id number] 09:46:00 Test Item Value Reference Range Interpretation Comments PH VENOUS (AKER) (test code = 7.41 7.32-7.42 701) PCO2 VENOUS (BEAKER) (test code = 72 mmHg 41-51 HH 755) PO2 VENOUS (BEAKER) (test code = 56 mmHg 25-40 H 702) O2 SATURATION VENOUS (AKER) 87.7 % 40.0-70.0 H (test code = 703) HCO3 VENOUS (AKER) (test code = 45 mmol/L 21-29 HH 705) BASE EXCESS VENOUS (AKER) (test 17.9 mmol/L -2.0-3.0 H code = 704) PATIENT TEMPERATURE ([facility]) 37.0 C (test code = 1818) FIO2 (AKER) (test code = 1819) 100.0 % POCT-GLUCOSE [id number] 09:13:00 Test Item Value Reference Range Interpretation Comments POC-GLUCOSE METER 109 mg/dL 70-110 TESTED AT [place] [address] ([facility]) (test code = [facility] Ciro [facility] 1538) [address] POCT-GLUCOSE [id number] 08:51:00 Test Item Value Reference Range Interpretation Comments POC-GLUCOSE METER 69 mg/dL 70-110 L Notified R Collin STAPLETON/TESTED AT ([facility]) (test code = [place] [address] [address] 1538) [place] [address] BASIC METABOLIC [id number] 06:32:00 Test Item Value Reference Range Interpretation [...] PATIEN TS. CBC W/PLT COUNT & AUTO [id number] 05:59:00 Test Item Value Reference Range Interpretation [...] PERCENT (BEAKER) (test code = 2801) POCT-GLUCOSE [id number] 21:54:00 Test Item Value Reference Range Interpretation Comments POC-GLUCOSE METER 175 mg/dL 70-110 H TESTED AT [place] [address] ([facility]) (test code = PAUL [place] 1538) [address] POCT-GLUCOSE [id number] 17:41:00 Test Item Value Reference Range Interpretation Comments POC-GLUCOSE METER 391 mg/dL 70-110 H Notified R Collin or ([facility]) (test code = Adelia noble repeat 1538) test/TESTED AT [place] [address] [place] [address] POCT-GLUCOSE [id number] 12:40:00 Test Item Value Reference Range Interpretation Comments POC-GLUCOSE METER 104 mg/dL 70-110 TESTED AT [place] [address] ([facility]) (test code = PAUL [place] 1538) [address] POCT-GLUCOSE [id number] 09:09:00 Test Item Value Reference Range Interpretation Comments POC-GLUCOSE METER 74 mg/dL 70-110 TESTED AT [facility] 6720 (BEAKER) (test code = [place] [address] 1538) BASIC METABOLIC [id number] 06:42:00 Test Item Value Reference Range Interpretation [...] APPLICABLE FOR DIALYSIS PATIEN TS. LACTIC ACID, [id number] 06:34:00 Test Item Value Reference Range Interpretation Comments LACTATE BLOOD VENOUS (2) (BEAKER) 1.9 mmol/L 0.5-2.2 (test code = 2872) CBC W/PLT COUNT & AUTO [id number] 06:15:00 Test Item Value Reference Range Interpretation [...] PERCENT (BEAKER) (test code = 2801) BLOOD [id number] 02:01:00 Test Item Value Reference Range Interpretation Comments CULTURE (BEAKER) (test No growth in 5 days code = 1095) BLOOD [id number] 02:01:00 Test Item Value Reference Range Interpretation Comments CULTURE (BEAKER) (test No growth in 5 days code = 1095) POCT-GLUCOSE [id number] 22:01:00 Test Item Value Reference Range Interpretation Comments POC-GLUCOSE METER 330 mg/dL 70-110 H Notified R Collin STAPLETON/TESTED (BEAKER) (test code = AT [facility] [address] [facility] [place] [address] POCT-GLUCOSE [id number] 17:27:00 Test Item Value Reference Range Interpretation Comments POC-GLUCOSE METER 306 mg/dL 70-110 H [facility] R [facility]lin [facility] (test code = Patien t refused repeat 1538) test/TESTED AT [address] [place] [address] POCT-GLUCOSE [id number] 12:48:00 Test Item Value Reference Range Interpretation Comments POC-GLUCOSE METER 251 mg/dL 70-110 H TESTED AT [place] [address] ([facility]) (test code = PAUL Tanner [facility] 1538) [address] CBC W/PLT COUNT & AUTO [id number] 10:15:00 Test Item Value Reference Range Interpretation [...] 3438) Received comment: User comments: Slide comments:POCT-GLUCOSE [id number] 09:42:00 Test Item Value Reference Range Interpretation Comments POC-GLUCOSE METER 88 mg/dL 70-110 TESTED AT [facility] 6720 (BEAKER) (test code = [place] [address] 1538) BLOOD GAS, [id number] 08:59:00 Test Item Value Reference Range Interpretation [...] = 1819) 32.0 % AFB CULTURE + [id number] 07:47:00 Test Item Value Reference Range Interpretation Comments CULTURE (BEAKER) (test No acid-fast bacilli code = 1095) isolated in 42 days AFB SMEAR (BEAKER) No acid fast bacilli (test code = 994) seen BASIC METABOLIC [id number] 06:21:00 Test Item Value Reference Range Interpretation [...] NOT APPLICABLE FOR DIALYSIS PATIEN TS. POCT-GLUCOSE [id number] 21:06:00 Test Item Value Reference Range Interpretation Comments POC-GLUCOSE METER 351 mg/dL 70-110 H TESTED AT [place] [address] ([facility]) (test code = PAUL Tanner [facility] 1538) [address] POCT-GLUCOSE [id number] 17:43:00 Test Item Value Reference Range Interpretation Comments POC-GLUCOSE METER > mg/dL 70-110 HH OUTSIDE ME ASURING ([facility]) (test code = RANGEW [facility] Repeat 1538) Test/TESTED AT [address] [address] POCT-GLUCOSE [id number] 12:03:00 Test Item Value Reference Range Interpretation Comments POC-GLUCOSE METER 370 mg/dL 70-110 H Will Repea t Test/TESTED ([facility]) (test code = AT [place] [address]508) [facility] 7703 0 POCT-GLUCOSE [id number] 09:33:00 Test Item Value Reference Range Interpretation Comments POC-GLUCOSE METER 243 mg/dL 70-110 H TESTED AT [place] [address] ([facility]) (test code = PAUL Tanner [facility] 1538) [address] CBC W/PLT COUNT & AUTO [id number] 07:52:00 Test Item Value Reference Range Interpretation [...] Received comment: User comments: Slide comments:BASIC METABOLIC [id number] 06:47:00 Test Item Value Reference Range Interpretation Comments SODIUM (BEAKER) 140 meq/L 136-145 (test code = 381) POTASSIUM (BEAKER) 3.5 meq/L 3.5-5.1 (test code = 379) CHLORIDE (BEAKER) 97 meq/L 98-107 L (test code = 382) CO2 (BEAKER) (test 36 meq/L 22-29 H code = 355) BLOOD UREA NITROGEN 16 mg/dL 7-21 (AKER) (test code = 354) CREATININE (BEAKER) 0.74 mg/dL 0.57-1.25 (test code = 358) GLUCOSE RANDOM 408 mg/dL 70-105 HH ([facility]) (test code = 652) CALCIUM (BEAKER) 8.3 mg/dL 8.4-10.2 L (test code = 697) EGFR (AKER) (test 115 mL/min/1.73 ESTIM ATED GFR IS code = 1092) sq m NOT ACCURATE CREATININE CLEARANCE IN PREDICTING GLOMERULAR FILTRATION RATE . ESTIMATED GFR I S NOT APPLICABLE FOR DIALYSIS PATIEN TS. POCT-GLUCOSE [id number] 21:53:00 Test Item Value Reference Range Interpretation Comments POC-GLUCOSE METER 358 mg/dL 70-110 H TESTED AT [place] [address] ([facility]) (test code = PAUL Tanner [place] [address]) [address] POCT-GLUCOSE [id number] 20:34:00 Test Item Value Reference Range Interpretation Comments POC-GLUCOSE METER 325 mg/dL 70-110 H TESTED AT [place] [address] ([facility]) (test code = NAOMITAYO Tanner [place] 581198) [address] POCT-GLUCOSE [id number] 17:15:00 Test Item Value Reference Range Interpretation Comments POC-GLUCOSE METER 446 mg/dL 70-110 HH Notified R Collin STAPLETON/TESTED ([facility]) (test code = AT [place] [address]) [facility] [address], CHEST WITH IV CONTRAST- PE TEST [id number] 16:56:00FINAL REPORT DOSE REDUCTION: The examination was performed according to departmental dose-optimization program which includes automated exposure control, adjustment of the mA and/or kV according to patient size and/or use of iterative reconstruction technique. TECHNIQUE: Postcontrast axial images of the chest were obtained from above the arch level to the lower chest at maximum en hancement of pulmonary artery. Coronal reconstruction was performed. COMPARISON: CT of the chest, 06/11/2015 DISCUSSION: There are no filling defects in the pulmonary arteries. The great vessels and aorta are unremarkable. The heart is normal in size. There are enlarged mediastinal and hilar lymph nodes measuring up to 1.3 cm. These are stable. Visualized upper abdomen demonstrates no focal abnormality. There are some nonspecific edema along the midline anterior chest wall as well as mild soft tissueanasarca posteriorly.A right internal jugular chest port noted with tip at the cavoatrial junction. The trachea and mainstem bronchi are patent. There are trace pleural effusions bilaterally. 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 Compared to CT from 06/11/2015 some of the bullae appear larger. Patchy groundglass and reticular nodular opacities are seen bilaterally. Some of the opacities from CT of 05/25 have resolved, others have increased. IMPRESSION: 1. No evidence of pulmonary embolism. 2. Findings consistent with sequela of cystic fibrosis. 3. Bilateral patchy groundglass and reticular nodular opacities, some are new from CT of 06/11/2015. The latter could represent superimposed acute pneumonitis. Trace pleural effusions. Signed: Lg Valdez MDReport Verified Date/Time: 04/15/2019 16:56:47Reading Location: [address] Reading Room POCT-GLUCOSE [id number] 11:53:00 Test Item Value Reference Range Interpretation Comments POC-GLUCOSE METER 371 mg/dL 70-110 H Notified R Collin STAPLETON/TESTED (SIMI) (test code = AT [facility] [address] [facility] 2334) [facility] 7703 0 CBC W/PLT COUNT & AUTO [id number] 10:05:00 Test Item Value Reference Range Interpretation [...] 3438) Received comment: User comments: Slide comments:POCT-GLUCOSE [id number] 07:57:00 Test Item Value Reference Range Interpretation Comments POC-GLUCOSE METER 337 mg/dL 70-110 H Notified R N MD/TESTED (BEAKER) (test code = AT [address] 1538) [facility] 7703 0 BASIC METABOLIC [id number] 06:56:00 Test Item Value Reference Range Interpretation [...] NOT APPLICABLE FOR DIALYSIS PATIEN TS. SCREEN, [id number] 01:40:00 Test Item Value Reference Range Interpretation Comments TEST URINE (BEAKER) (test Negative code = 583) POCT-GLUCOSE [id number] 18:03:00 Test Item Value Reference Range Interpretation Comments POC-GLUCOSE METER 327 mg/dL 70-110 H Notified R Collin MD/TESTED (BEAKER) (test code = AT [address] 1538) [place] [address] 0 CBC W/PLT COUNT & AUTO [id number] 15:01:00 Test Item Value Reference Range Interpretation [...] (test code = 3432) PLATELET CONCENTRATION Adequate (CELLAVISION)([facility]) (test code = 3438) Received comment: User comments: Slide comments:POCT-GLUCOSE [id number] 11:50:00 Test Item Value Reference Range Interpretation Comments POC-GLUCOSE METER 422 mg/dL 70-110 HH Notified R Collin STAPLETON/TESTED ([facility]) (test code = AT [address] 1538) [place] [address] 0 POCT-GLUCOSE [id number] 07:40:00 Test Item Value Reference Range Interpretation Comments POC-GLUCOSE METER > mg/dL 70-110 HH OUTSIDE ME ASURING ([facility]) (test code RANGENot ified JORDON MD/TESTED = 1538) AT [place] [address] B [place] [place] [address] 0 [id number] 05:34:00 Test Item Value Reference Range Interpretation Comments BLOOD UREA NITROGEN ([facility]) (test 17 mg/dL 05-14 code = 354) [id number] 05:34:00 Test Item Value Reference Range Interpretation Comments CREATININE ([facility]) 1.09 mg/dL 0.57-1.25 (test code = 358) EGFR ([facility]) (test 74 mL/min/1.73 ESTIMA MAGDALENO GFR IS code = 1092) sq m NOT ACCURATE CREATININE CLEARANCE IN PREDICTING GLOMERULAR FILTRATION RATE . ESTIMATED GFR I S NOT APPLICABLE FOR DIALYSIS PATIEN TS. POCT-GLUCOSE [id number] 22:01:00 Test Item Value Reference Range Interpretation Comments POC-GLUCOSE METER 314 mg/dL 70-110 H Notified R Collin STAPLETON/TESTED ([facility]) (test code = AT [address] 1538) [facility] 770 0 POCT-GLUCOSE [id number] 17:42:00 Test Item Value Reference Range Interpretation Comments POC-GLUCOSE METER 192 mg/dL 70-110 H TESTED AT [place] [address] ([facility]) (test code = PAUL Tanner [facility] 1538) [address] POCT-GLUCOSE [id number] 14:10:00 Test Item Value Reference Range Interpretation Comments POC-GLUCOSE METER 372 mg/dL 70-110 H TESTED AT [place] [address] ([facility]) (test code = PAUL Tanner [facility] 1538) [address] BASIC METABOLIC [id number] 07:00:00 Test Item Value Reference Range Interpretation [...] NOT APPLICABLE FOR DIALYSIS PATIEN TS. POCT-GLUCOSE [id number] 06:44:00 Test Item Value Reference Range Interpretation Comments POC-GLUCOSE METER 177 mg/dL 70-110 H TESTED AT [facility] 67 ([facility]) (test code = PAUL Tanner [place] [address]) [address] [id number] 05:08:00 Test Item Value Reference Range Interpretation Comments BLOOD UREA NITROGEN (BEAKER) (test 21 mg/dL 7-21 code = 354) [id number] 05:08:00 Test Item Value Reference Range Interpretation Comments CREATININE (BEAKER) 1.03 mg/dL 0.57-1.25 (test code = 358) EGFR (BEAKER) (test 79 mL/min/1.73 ESTIMA MAGDALENO GFR IS code = 1092) sq m NOT ACCURATE CREATININE CLEARANCE IN PREDICTING GLOMERULAR FILTRATION RATE . ESTIMATED GFR I S NOT APPLICABLE FOR DIALYSIS PATIEN TS. POCT-GLUCOSE [id number] 03:44:00 Test Item Value Reference Range Interpretation Comments POC-GLUCOSE METER 411 mg/dL 70-110 HH Notified R Collin STAPLETON/TESTED ([facility]) (test code = AT [facility] [address] [facility] 7703 0 POCT-GLUCOSE [id number] 02:22:00 Test Item Value Reference Range Interpretation Comments POC-GLUCOSE METER 409 mg/dL 70-110 HH TESTED AT [facility] 6720 ([facility]) (test code = PAUL Tanner [place] 1538) [address] POCT-GLUCOSE [id number] 00:48:00 Test Item Value Reference Range Interpretation Comments POC-GLUCOSE METER > mg/dL 70-110 HH OUTSIDE ME ASURING (BEAKER) (test code RANGENot ified JORDON STAPLETON/TESTED = 1538) AT [facility] [address] [place] [address] B-TYPE NATRIURETIC FACTOR (BNP)2019-04-12 19:52:00 Test Item Value Reference Range Interpretation Comments B-TYPE NATRIURETIC PEPTIDE (BEAKER) 618 pg/mL 0-100 H (test code = 700) BASIC METABOLIC [id number] 19:34:00 Test Item Value Reference Range Interpretation [...] PATIEN TS. CBC W/PLT COUNT & AUTO [id number] 19:32:00 Test Item Value Reference Range Interpretation [...] of breath. FINDINGS: Compared with February 26, 2019,the heart and mediastinum are stable. Diffuse bilateral pulmonary parenchymal abnormality persists, most consistent with cystic fibrosis. There is subtle increased opacity in the right lower lobe, possibly representing superimposed pneumonia. Lungs are otherwise clear. No edema or effusions. No pneumothorax. Right chest port position is stable. Bones are unremarkable. IMPRESSION: 1. Diffuse bilateralpulmonary parenchymal abnormality, most consistent with cystic fibrosis. Additionally, new subtle focal opacity is present in the right lower lobe, possibly representing superimposed pneumonia. Signed:Flip Singer MDReport Verified Date/Time: 04/12/2019 19:21:17 Reading Location: [facility] Diagnostic Imaging Reading Room - [place] [address] POCT-LACTIC ACID, [id number] 18:53:00 Test Item Value Reference Range Interpretation Comments POC-LACTIC ACID, 1.1 mmol/L 0.9-1.7 TESTED AT [place] [address] VENOUS (BEAKER) (test PAUL [place] code = 2805) [address] FUNGUS CULTURE + [id number] 20:03:00 Test Item Value Reference Range Interpretation Comments CULTURE (BEAKER) (test No fungus isolated in code = 1095) 28 days FUNGUS SMEAR (BEAKER) No fungi seen (test code = 1406) POCT-GLUCOSE [id number] 16:35:00 Test Item Value Reference Range Interpretation Comments POC-GLUCOSE METER 271 mg/dL 70-110 H TESTED AT [facility] 6720 (BEAKER) (test code = PAUL Tanner [place] 1538) [address] POCT-GLUCOSE [id number] 11:17:00 Test Item Value Reference Range Interpretation Comments POC-GLUCOSE METER 372 mg/dL 70-110 H Notified Ciro Polanco MD/TESTED (BEAKER) (test code = AT [facility] [address] [facility] 1538[facility] [place] [address] POCT-GLUCOSE [id number] 08:26:00 Test Item Value Reference Range Interpretation Comments POC-GLUCOSE METER 264 mg/dL 70-110 H TESTED AT [facility] 6720 (BEAKER) (test code = PAUL Tanner [facility] 1538) [address] [id number] 07:40:00 Test Item Value Reference Range Interpretation Comments MAGNESIUM (BEAKER) (test code = 1.3 mg/dL 1.6-2.6 L 627) HEPATIC FUNCTION [id number] 07:40:00 Test Item Value Reference Range Interpretation [...] 96 U/L 6-55 H 347) BUN AND [id number] 07:40:00 Test Item Value Reference Range Interpretation Comments BLOOD UREA NITROGEN 20 mg/dL 7-21 (BEAKER) (test code = 354) CREATININE (BEAKER) 0.83 mg/dL 0.57-1.25 (test code = 358) EGFR (BEAKER) (test 101 mL/min/1.73 ESTIM ATED GFR IS code = 1092) sq m NOT ACCURATE CREATININE CLEARANCE IN PREDICTING GLOMERULAR FILTRATION RATE . ESTIMATED GFR I S NOT APPLICABLE FOR DIALYSIS PATIEN TS. POCT-GLUCOSE [id number] 21:31:00 Test Item Value Reference Range Interpretation Comments POC-GLUCOSE METER 311 mg/dL 70-110 H Notified Ciro Polanco MD/TESTED ([facility]) (test code = AT [facility] 67[address] [facility] 1538) [facility] 7703 0 POCT-GLUCOSE [id number] 18:44:00 Test Item Value Reference Range Interpretation Comments POC-GLUCOSE METER > mg/dL 70-110 HH OUTSIDE ME ASURING ([facility]) (test code [facility] [place] [address] = 1538) [place] [facility] [address] POCT-GLUCOSE [id number] 11:53:00 Test Item Value Reference Range Interpretation Comments POC-GLUCOSE METER 95 mg/dL 70-110 TESTED AT [place] [address] ([facility]) (test code = [facility] Ciro [facility] [address] 1538) [id number] 08:39:00 Test Item Value Reference Range Interpretation Comments [facility]US [facility] (test code = 3.5 mg/dL 2.3-4.7 604) [id number] 08:39:00 Test Item Value Reference Range Interpretation Comments MAGNESIUM ([facility]) (test code = 1.6 mg/dL 1.6-2.6 627) BUN AND [id number] 08:39:00 Test Item Value Reference Range Interpretation Comments BLOOD UREA NITROGEN 28 mg/dL 7-21 H ([facility]) (test code = 354) CREATININE ([facility]) 0.72 mg/dL 0.57-1.25 (test code = 358) EGFR ([facility]) (test 119 mL/min/1.73 ESTIM ATED GFR IS code = 1092) sq m NOT ACCURATE CREATININE CLEARANCE IN PREDICTING GLOMERULAR FILTRATION RATE . ESTIMATED GFR I S NOT APPLICABLE FOR DIALYSIS PATIEN TS. POCT-GLUCOSE [id number] 08:37:00 Test Item Value Reference Range Interpretation Comments POC-GLUCOSE METER 159 mg/dL 70-110 H TESTED AT [place] [address] ([facility]) (test code = [facility] Ciro [facility] 1538) [address] POCT-GLUCOSE [id number] 21:42:00 Test Item Value Reference Range Interpretation Comments POC-GLUCOSE METER 223 mg/dL 70-110 H TESTED AT [place] [address] ([facility]) (test code = [facility] 1538) [address] POCT-GLUCOSE [id number] 18:05:00 Test Item Value Reference Range Interpretation Comments POC-GLUCOSE METER > mg/dL 70-110 HH OUTSIDE ME ASURING ([facility]) (test code RANGETES MAGDALENO AT [place] [address] = 1538) [facility] [address] BUN AND [id number] 17:32:00 Test Item Value Reference Range Interpretation Comments BLOOD UREA NITROGEN 31 mg/dL 7-21 H ([facility]) (test code = 354) CREATININE ([facility]) 1.09 mg/dL 0.57-1.25 (test code = 358) EGFR ([facility]) (test 74 mL/min/1.73 ESTIMA MAGDALENO GFR IS code = 1092) sq m NOT ACCURATE CREATININE CLEARANCE IN PREDICTING GLOMERULAR FILTRATION RATE . ESTIMATED GFR I S NOT APPLICABLE FOR DIALYSIS PATIEN TS. POCT-GLUCOSE [id number] 12:47:00 Test Item Value Reference Range Interpretation Comments POC-GLUCOSE METER 135 mg/dL 70-110 H TESTED AT [place] [address] ([facility]) (test code = [facility] 1538) [address] POCT-GLUCOSE [id number] 12:16:00 Test Item Value Reference Range Interpretation Comments POC-GLUCOSE METER 42 mg/dL 70-110 L TESTED AT [place] [address] ([facility]) (test code = [facility] [address] 1538) POCT-GLUCOSE [id number] 10:19:00 Test Item Value Reference Range Interpretation Comments POC-GLUCOSE METER 303 mg/dL 70-110 H TESTED AT [place] [address] ([facility]) (test code = [facility] 1538) [address] POCT-GLUCOSE [id number] 08:48:00 Test Item Value Reference Range Interpretation Comments POC-GLUCOSE METER 307 mg/dL 70-110 H TESTED AT [place] [address] ([facility]) (test code = [facility] 1538) [address] [id number] 05:02:00 Test Item Value Reference Range Interpretation Comments MAGNESIUM ([facility]) 1.8 mg/dL 1.6-2.6 Specimen slightly (test code = 627) hemolyzed POCT-GLUCOSE [id number] 21:59:00 Test Item Value Reference Range Interpretation Comments POC-GLUCOSE METER 191 mg/dL 70-110 H TESTED AT [place] [address] ([facility]) (test code = [facility] 1538) [address] POCT-GLUCOSE [id number] 17:44:00 Test Item Value Reference Range Interpretation Comments POC-GLUCOSE METER 222 mg/dL 70-110 H TESTED AT [facility] 6720 (BEAKER) (test code = PAUL Tanner [facility] 1538) [address] POCT-GLUCOSE [id number] 12:19:00 Test Item Value Reference Range Interpretation Comments POC-GLUCOSE METER 88 mg/dL 70-110 TESTED AT [facility] 6720 (BEAKER) (test code = PAUL Tanner [facility] [address] 1538) [id number] 07:28:00 Test Item Value Reference Range Interpretation Comments MAGNESIUM (BEAKER) (test code = 1.8 mg/dL 1.6-2.6 627) COMPREHENSIVE METABOLIC [id number] 07:28:00 Test Item Value Reference Range Interpretation [...] 6-55 H (test code = 347) EGFR [facility] (test 105 ESTIMATE D GFR IS code = 1092) mL/min/1.73 sq NOT ACCURA TE m CREATININE CLEARANCE IN PREDICTING GLOMERULAR FILTRATION RATE . ESTIMATED GFR I S NOT APPLICABLE FOR DIALYSIS PATIEN TS. POCT-GLUCOSE [id number] 21:14:00 Test Item Value Reference Range Interpretation Comments POC-GLUCOSE METER 179 mg/dL 70-110 H TESTED AT [place] [address] ([facility]) (test code = [facility] 1538) 12408 POCT-GLUCOSE [id number] 17:49:00 Test Item Value Reference Range Interpretation Comments POC-GLUCOSE METER 331 mg/dL 70-110 H TESTED AT [place] [address] ([facility]) (test code = [facility] 1538) 42879 POCT-GLUCOSE [id number] 11:40:00 Test Item Value Reference Range Interpretation Comments POC-GLUCOSE METER 241 mg/dL 70-110 H TESTED AT [place] [address] ([facility]) (test code = [facility] 1538) [address]78 POCT-GLUCOSE [id number] 08:43:00 Test Item Value Reference Range Interpretation Comments POC-GLUCOSE METER 52 mg/dL 70-110 L TESTED AT [place] [address] ([facility]) (test code = [facility] [address] 1538) COMPREHENSIVE METABOLIC [id number] 08:01:00 Test Item Value Reference Range Interpretation Comments TOTAL PROTEIN 5.9 gm/dL 6.0-8.3 L ([facility]) (test code = 770) ALBUMIN (BEAKER) 2.7 [...] S NOT APPLICABLE FOR DIALYSIS PATIEN TS. [id number] 07:57:00 Test Item Value Reference Range Interpretation Comments MAGNESIUM (BEAKER) (test code = 1.3 mg/dL 1.6-2.6 L 627) U/S, ABDOMINAL, [id number] 03:59:00Abdomen limited area? Add comment if clarification is needed.->LiverReason for exam:->AbnormalLFTsFINAL REPORT INDICATION: Abnormal LFTs COMPARISON: None TECHNIQUE: Real-time transabdominal crum scale and color Doppler ultrasound of [...] process: Unremarkable. Body and tail: Not well-seen. Right kidney: Size: 10.1 x 4.4 x 4.9 cm. Renal cortical thickness is 1.1 cm. Parenchyma: Normal echogenicity. No cysts. No stones. Hydronephrosis: None. Ascites: None. Regional Vasculature: The visible abdominal aorta, IVC and hepatic veins are patent. Additional Findings: None. IMPRESSION: Unremarkable right upper quadrant ultrasound. Signed: Rosa M Freitas MDReport Verified Date/Time: 03/08/2019 03:59:22 Reading Location: [facility] C013V Neuro Reading Room -GLUCOSE [id number] 21:26:00 Test Item Value Reference Range Interpretation Comments POC-GLUCOSE METER 275 mg/dL 70-110 H TESTED AT [place] [address] ([facility]) (test code = PAUL Ciro [facility] 1538) [address] HEPATITIS PANEL, [id number] 19:14:00 Test Item Value Reference Range Interpretation Comments HEPATITIS A IGM ANTIBODY ([facility]) Nonreactive Nonreactive (test code = 498) HEPATITIS B CORE IGM ANTIBODY Nonreactive Nonreactive ([facility]) (test code = 645) HEPATITIS C ANTIBODY ([facility]) Nonreactive Nonreactive (test code = 367) HEPATITIS B SURFACE ANTIGEN (2) Nonreactive Nonreactive ([facility]) (test code = 2585) [id number] 18:18:00 Test Item Value Reference Range Interpretation Comments POTASSIUM ([facility]) (test code = 4.9 meq/L 3.5-5.1 379) POCT-GLUCOSE [id number] 16:48:00 Test Item Value Reference Range Interpretation Comments POC-GLUCOSE METER 143 mg/dL 70-110 H TESTED AT [place] [address] ([facility]) (test code = PAUL Tanner [facility] 1538) [address] POCT-GLUCOSE [id number] 12:30:00 Test Item Value Reference Range Interpretation Comments POC-GLUCOSE METER 142 mg/dL 70-110 H TESTED AT [place] [address] ([facility]) (test code = NAOMIVT Ciro [facility] 1538) [address] POCT-GLUCOSE [id number] 11:58:00 Test Item Value Reference Range Interpretation Comments POC-GLUCOSE METER 25 mg/dL 70-110 LL Notified Ciro Polanco MD/TESTED AT ([facility]) (test code = [address] 1538) [facility] 7[address] 0 POCT-GLUCOSE [id number] 11:34:00 Test Item Value Reference Range Interpretation Comments POC-GLUCOSE METER 50 mg/dL 70-110 L TESTED AT [facility] 6720 (BEAKER) (test code = PAUL Tanner [facility] [address] 1538) CREATINE KINASE (CK)2019-03-07 11:09:00 Test Item Value Reference Range Interpretation Comments CREATINE KINASE TOTAL (BEAKER) (test 90 U/L 29-200 code = 380) POCT-GLUCOSE [id number] 08:07:00 Test Item Value Reference Range Interpretation Comments POC-GLUCOSE METER 376 mg/dL 70-110 H Notified R Collin MD/TESTED (BEAKER) (test code = AT [facility] [address] [place] 1538) [facility] 7703 0 COMPREHENSIVE METABOLIC [id number] 07:23:00 Test Item Value Reference Range Interpretation [...] S NOT APPLICABLE FOR DIALYSIS PATIEN TS. [id number] 07:04:00 Test Item Value Reference Range Interpretation Comments PHOSPHORUS (BEAKER) (test code = 5.3 mg/dL 2.3-4.7 H 604) [id number] 07:04:00 Test Item Value Reference Range Interpretation Comments MAGNESIUM (BEAKER) (test code = 2.0 mg/dL 1.6-2.6 627) CBC W/PLT COUNT & AUTO [id number] 06:44:00 Test Item Value Reference Range Interpretation [...] PERCENT (BEAKER) (test code = 2801) POCT-GLUCOSE [id number] 21:22:00 Test Item Value Reference Range Interpretation Comments POC-GLUCOSE METER 74 mg/dL 70-110 TESTED AT [place] [address] ([facility]) (test code = [facility] [address] 1538) POCT-GLUCOSE [id number] 18:21:00 Test Item Value Reference Range Interpretation Comments POC-GLUCOSE METER 166 mg/dL 70-110 H TESTED AT [place] [address] ([facility]) (test code = [facility] 1538) [address]707 POCT-GLUCOSE [id number] 12:56:00 Test Item Value Reference Range Interpretation Comments POC-GLUCOSE METER 258 mg/dL 70-110 H TESTED AT [place] [address] ([facility]) (test code = [facility] 1538) [address] POTASSIUM-STAT [id number] 09:11:00 Test Item Value Reference Range Interpretation Comments POTASSIUM (BEAKER) (test code = 5.9 meq/L 3.6-5.5 H 379) POCT-GLUCOSE [id number] 09:07:00 Test Item Value Reference Range Interpretation Comments POC-GLUCOSE METER 278 mg/dL 70-110 H TESTED AT [place] [address] ([facility]) (test code = [facility] 1538) [address] [id number] 07:43:00 Test Item Value Reference Range Interpretation Comments POTASSIUM (BEAKER) (test code = 6.1 meq/L 3.5-5.1 HH 379) [id number] 07:38:00 Test Item Value Reference Range Interpretation Comments MAGNESIUM ([facility]) (test code = 1.1 mg/dL 1.6-2.6 L 627) [id number] 07:38:00 Test Item Value Reference Range Interpretation Comments BLOOD UREA NITROGEN ([facility]) (test 25 mg/dL 7-21 H code = 354) [id number] 07:38:00 Test Item Value Reference Range Interpretation Comments CREATININE ([facility]) 0.78 mg/dL 0.57-1.25 (test code = 358) EGFR ([facility]) (test 108 mL/min/1.73 ESTIM ATED GFR IS code = 1092) sq m NOT ACCURATE CREATININE CLEARANCE IN PREDICTING GLOMERULAR FILTRATION RATE . ESTIMATED GFR I S NOT APPLICABLE FOR DIALYSIS PATIEN TS. POCT-GLUCOSE [id number] 01:39:00 Test Item Value Reference Range Interpretation Comments POC-GLUCOSE METER 98 mg/dL 70-110 TESTED AT [place] [address] ([facility]) (test code = [facility] Ciro [facility] [address] 1538) POCT-GLUCOSE [id number] 01:39:00 Test Item Value Reference Range Interpretation Comments POC-GLUCOSE METER 63 mg/dL 70-110 L TESTED AT [place] [address] ([facility]) (test code = [facility] [employer] [facility] [address] 1538) POCT-GLUCOSE [id number] 21:42:00 Test Item Value Reference Range Interpretation Comments POC-GLUCOSE METER 96 mg/dL 70-110 TESTED AT [place] [address] ([facility]) (test code = [facility] [address] 1538) POCT-GLUCOSE [id number] 17:58:00 Test Item Value Reference Range Interpretation Comments POC-GLUCOSE METER 266 mg/dL 70-110 H TESTED AT [place] [address] ([facility]) (test code = [facility] R [place] 1538) [address] POCT-GLUCOSE [id number] 13:54:00 Test Item Value Reference Range Interpretation Comments POC-GLUCOSE METER 239 mg/dL 70-110 H TESTED AT [place] [address] ([facility]) (test code = [facility] R [place] 1538) [address] POCT-GLUCOSE [id number] 12:40:00 Test Item Value Reference Range Interpretation Comments POC-GLUCOSE METER 149 mg/dL 70-110 H TESTED AT [place] [address] ([facility]) (test code = NAOM[facility]T Ciro [facility] 1538) [address] POCT-GLUCOSE [id number] 11:48:00 Test Item Value Reference Range Interpretation Comments POC-GLUCOSE METER < mg/dL 70-110 LL OUTS[facility] ME ASURING ([facility] (test code RANGETES MAGDALENO AT [place] [address] = 1538) [facility] [address] POCT-GLUCOSE [id number] 08:28:00 Test Item Value Reference Range Interpretation Comments POC-GLUCOSE METER 232 mg/dL 70-110 H TESTED AT [place] [address] ([facility]) (test code = [facility] Ciro [facility] 1538) [address] [id number] 07:14:00 Test Item Value Reference Range Interpretation Comments POTASSIUM (BEAKER) (test code = 5.3 meq/L 3.5-5.1 H 379) [id number] 07:14:00 Test Item Value Reference Range Interpretation Comments MAGNESIUM ([facility]) (test code = 1.7 mg/dL 1.6-2.6 627) [id number] 07:14:00 Test Item Value Reference Range Interpretation Comments BLOOD UREA NITROGEN ([facility]) (test 30 mg/dL 7-21 H code = 354) [id number] 07:14:00 Test Item Value Reference Range Interpretation Comments CREATININE (AKER) 0.78 mg/dL 0.57-1.25 (test code = 358) EGFR ([facility]) (test 108 mL/min/1.73 ESTIM ATED GFR IS code = 1092) sq m NOT ACCURATE CREATININE CLEARANCE IN PREDICTING GLOMERULAR FILTRATION RATE . ESTIMATED GFR I S NOT APPLICABLE FOR DIALYSIS PATIEN TS. POCT-GLUCOSE [id number] 21:28:00 Test Item Value Reference Range Interpretation Comments POC-GLUCOSE METER 334 mg/dL 70-110 H Will Repea t Test/TESTED ([facility]) (test code = AT [address] 1538) [facility] 7703 0 POCT-GLUCOSE [id number] 19:23:00 Test Item Value Reference Range Interpretation Comments POC-GLUCOSE METER 362 mg/dL 70-110 H TESTED AT [place] [address] ([facility]) (test code = [facility] Ciro [facility] 1538) [address] POCT-GLUCOSE [id number] 17:21:00 Test Item Value Reference Range Interpretation Comments POC-GLUCOSE METER > mg/dL 70-110 HH OUTSIDE ME ASURING ([facility]) (test code RANGETES MAGDALENO AT [place] [address] = 1538) [place] [facility] [address] POCT-GLUCOSE [id number] 12:10:00 Test Item Value Reference Range Interpretation Comments POC-GLUCOSE METER 75 mg/dL 70-110 TESTED AT [place] [address] ([facility]) (test code = [facility] [address] 1538) POCT-GLUCOSE [id number] 11:26:00 Test Item Value Reference Range Interpretation Comments POC-GLUCOSE METER 36 mg/dL 70-110 LL TESTED AT [place] [address] ([facility]) (test code = [facility] [address] 1538) POCT-GLUCOSE [id number] 08:13:00 Test Item Value Reference Range Interpretation Comments POC-GLUCOSE METER 154 mg/dL 70-110 H TESTED AT [place] [address] ([facility]) (test code = [facility] 1538) [address] [id number] 07:24:00 Test Item Value Reference Range Interpretation Comments MAGNESIUM ([facility]) (test code = 1.2 mg/dL 1.6-2.6 L 627) [id number] 07:24:00 Test Item Value Reference Range Interpretation Comments BLOOD UREA NITROGEN ([facility]) (test 23 mg/dL 7-21 H code = 354) [id number] 07:24:00 Test Item Value Reference Range Interpretation Comments CREATININE ([facility]) 0.72 mg/dL 0.57-1.25 (test code = 358) EGFR ([facility]) (test 119 mL/min/1.73 ESTIM ATED GFR IS code = 1092) sq m NOT ACCURATE CREATININE CLEARANCE IN PREDICTING GLOMERULAR FILTRATION RATE . ESTIMATED GFR I S NOT APPLICABLE FOR DIALYSIS PATIEN TS. POCT-GLUCOSE [id number] 21:21:00 Test Item Value Reference Range Interpretation Comments POC-GLUCOSE METER 239 mg/dL 70-110 H TESTED AT [place] [address] ([facility]) (test code = [facility] 1538) [address] POCT-GLUCOSE [id number] 17:47:00 Test Item Value Reference Range Interpretation Comments POC-GLUCOSE METER 258 mg/dL 70-110 H TESTED AT [facility] 6720 ([facility]) (test code = [place] 1530) [address] CF RESPIRATORY [id number] 16:52:00 Test Item Value Reference Range Interpretation Comments CULTURE ([facility]) PSEUDOMONAS A 4+ Pseudomo viki (test code [...] = 25) Resistant <0 or >4 CULTURE ([facility]) PSEUDOMONAS A 4+ Pseudomo viki (test code [...] or >4 2+ Normal respiratory derick presentBLOOD [id number] 12:01:00 Test Item Value Reference Range Interpretation Comments CULTURE ([facility]) (test No growth in 5 days code = 1095) BLOOD [id number] 12:01:00 Test Item Value Reference Range Interpretation Comments CULTURE ([facility]) (test No growth in 5 days code = 1095) POCT-GLUCOSE [id number] 11:37:00 Test Item Value Reference Range Interpretation Comments POC-GLUCOSE METER 301 mg/dL 70-110 H TESTED AT [facility] 6720 (Exoprise) (test code = PAUL [place] [facility]8) [address] POCT-GLUCOSE [id number] 09:15:00 Test Item Value Reference Range Interpretation Comments POC-GLUCOSE METER 243 mg/dL 70-110 H TESTED AT [place] [address] ([facility]) (test code = [facility] 1538) [address] POCT-GLUCOSE [id number] 22:09:00 Test Item Value Reference Range Interpretation Comments POC-GLUCOSE METER 222 mg/dL 70-110 H TESTED AT [place] [address] ([facility]) (test code = [facility] 1538) [address]676 POCT-GLUCOSE [id number] 17:13:00 Test Item Value Reference Range Interpretation Comments POC-GLUCOSE METER 294 mg/dL 70-110 H TESTED AT [place] [address] ([facility]) (test code = [facility] 1538) [address] POCT-GLUCOSE [id number] 13:17:00 Test Item Value Reference Range Interpretation Comments POC-GLUCOSE METER 155 mg/dL 70-110 H TESTED AT [place] [address] ([facility]) (test code = [facility] 1538) [address] [id number] 10:11:00 Test Item Value Reference Range Interpretation Comments GLUCOSE RANDOM ([facility]) (test code = 75 mg/dL 70-105 652) [id number] 09:26:00 Test Item Value Reference Range Interpretation Comments MAGNESIUM (BEAKER) 1.3 mg/dL 1.6-2.6 L Specimen slightly (test code = 627) hemolyzed [id number] 09:26:00 Test Item Value Reference Range Interpretation Comments BLOOD UREA NITROGEN (BEAKER) (test 13 mg/dL 7-21 code = 354) [id number] 09:26:00 Test Item Value Reference Range Interpretation Comments CREATININE (BEAKER) 0.71 mg/dL 0.57-1.25 Specimen slightly (test code = 358) hemolyzed EGFR (BEAKER) (test 121 mL/min/1.73 ESTIM ATED GFR IS code = 1092) sq m NOT ACCURATE CREATININE CLEARANCE IN PREDICTING GLOMERULAR FILTRATION RATE . ESTIMATED GFR I S NOT APPLICABLE FOR DIALYSIS PATIEN TS. POCT-GLUCOSE [id number] 08:46:00 Test Item Value Reference Range Interpretation Comments POC-GLUCOSE METER 89 mg/dL 70-110 TESTED AT [place] [address] ([facility]) (test code = PAUL Tanner [facility] [address] 1538) POCT-GLUCOSE [id number] 22:16:00 Test Item Value Reference Range Interpretation Comments POC-GLUCOSE METER 325 mg/dL 70-110 H Verify wit h Lab ([facility]) (test code = draw/T ESTED AT [facility] 1538) [facility] [address] POCT-GLUCOSE [id number] 18:08:00 Test Item Value Reference Range Interpretation Comments POC-GLUCOSE METER 423 mg/dL 70-110 HH TESTED AT [place] [address] ([facility]) (test code = PAUL Tanner [facility] 1538) [address] POCT-GLUCOSE [id number] 11:52:00 Test Item Value Reference Range Interpretation Comments POC-GLUCOSE METER > mg/dL 70-110 HH OUTSIDE ME ASURING ([facility]) (test code RANGENot ified JORDON STAPLETON/TESTED = 6532) AT [place] [address] B ERTNER [facility] 7703 0 [id number] 09:24:00 Test Item Value Reference Range Interpretation Comments MAGNESIUM ([facility]) (test code = 1.1 mg/dL 1.6-2.6 L 627) [id number] 09:24:00 Test Item Value Reference Range Interpretation Comments BLOOD UREA NITROGEN ([facility]) (test 18 mg/dL 7-21 code = 354) [id number] 09:24:00 Test Item Value Reference Range Interpretation Comments CREATININE ([facility]) 0.84 mg/dL 0.57-1.25 (test code = 358) EGFR ([facility]) (test 99 mL/min/1.73 ESTIMA MAGDALENO GFR IS code = 1092) sq m NOT ACCURATE CREATININE CLEARANCE IN PREDICTING GLOMERULAR FILTRATION RATE . ESTIMATED GFR I S NOT APPLICABLE FOR DIALYSIS PATIEN TS. POCT-GLUCOSE [id number] 08:38:00 Test Item Value Reference Range Interpretation Comments POC-GLUCOSE METER 382 mg/dL 70-110 H Notified Ciro Polanco MD/TESTED ([facility]) (test code = AT [facility] [address] [facility] 1538) [facility] 7703 0 POCT-GLUCOSE [id number] 21:23:00 Test Item Value Reference Range Interpretation Comments POC-GLUCOSE METER > mg/dL 70-110 HH OUTSIDE ME ASURING (BEAKER) (test code RANGENot ified JORDON MD/TESTED = 1538) AT [facility] [address] [place] [address] 0 POCT-GLUCOSE [id number] 17:38:00 Test Item Value Reference Range Interpretation Comments POC-GLUCOSE METER 315 mg/dL 70-110 H Notified R Collin STAPLETON/TESTED ([facility]) (test code = AT [place] [address] [facility] [place] [address] 0 [id number] 12:28:00 Test Item Value Reference Range Interpretation Comments MAGNESIUM (BEAKER) (test code = 1.2 mg/dL 1.6-2.6 L 627) POCT-GLUCOSE [id number] 12:11:00 Test Item Value Reference Range Interpretation Comments POC-GLUCOSE METER 371 mg/dL 70-110 H TESTED AT [place] [address] ([facility]) (test code = [place] [address]198) [address] SPIN/CONCENTRATION [id number] 12:09:00 Test Item Value Reference Range Interpretation Comments CONCENTRATION CHARGED ([facility]) (test Done code = 2657) POCT-GLUCOSE [id number] 08:51:00 Test Item Value Reference Range Interpretation Comments POC-GLUCOSE METER 403 mg/dL 70-110 HH Notified R Collin STAPLETON/TESTED ([facility]) (test code = AT [address] 1538) [place] [address] 0 [id number] 06:48:00 Test Item Value Reference Range Interpretation Comments BLOOD UREA NITROGEN (BEAKER) (test 20 mg/dL 7-21 code = 354) [id number] 06:48:00 Test Item Value Reference Range Interpretation Comments CREATININE (BEAKER) 1.05 mg/dL 0.57-1.25 (test code = 358) EGFR (BEAKER) (test 77 mL/min/1.73 ESTIMA MAGDALENO GFR IS code = 1092) sq m NOT ACCURATE CREATININE CLEARANCE IN PREDICTING GLOMERULAR FILTRATION RATE . ESTIMATED GFR I S NOT APPLICABLE FOR DIALYSIS PATIEN TS. POCT-GLUCOSE [id number] 23:38:00 Test Item Value Reference Range Interpretation Comments POC-GLUCOSE METER 348 mg/dL 70-110 H Notified R Collin STAPLETON/TESTED (BEAKER) (test code = AT [address] 1538) [facility] 7703 0 POCT-GLUCOSE [id number] 21:07:00 Test Item Value Reference Range Interpretation Comments POC-GLUCOSE METER 387 mg/dL 70-110 H Notified R Collin STAPLETON/TESTED (SIMI) (test code = AT [place] [id number] [facility] 1538) [facility] 7703 0 POCT-GLUCOSE [id number] 18:15:00 Test Item Value Reference Range Interpretation Comments POC-GLUCOSE METER 495 mg/dL 70-110 HH TESTED AT [place] [address] (SIMI) (test code = BERTNE R [facility] 1538) [address] HEMOGLOBIN [id number] 17:06:00 Test Item Value Reference Range Interpretation Comments HEMOGLOBIN A1C (SIMI) (test code = 12.4 % 4.3-6.1 H 368) POCT-GLUCOSE [id number] 15:56:00 Test Item Value Reference Range Interpretation Comments POC-GLUCOSE METER > mg/dL 70-110 HH OUTSIDE ME ASURING (SIMI) (test code RANGETES MAGDALENO AT [place] [address] = 1538) [facility] [address] RESPIRATORY PANEL [id number] 14:33:00 Test Item Value Reference Range Interpretation [...] decisions. This sample was tested at the [facility] using the [employer] Respiratory Panel. It is FDA cleared and has been verified and approved by the [facility] for clinical use on nasal swab specimens.POCT-GLUCOSE [id number] 11:59:00 Test Item Value Reference Range Interpretation Comments POC-GLUCOSE METER > mg/dL 70-110 HH OUTSIDE AL ASURING (BEAKER) (test code RANGETES MAGDALENO AT [facility] 6720 = 1538) [facility] [address] [id number] 08:16:00 Test Item Value Reference Range Interpretation Comments MAGNESIUM (BEAKER) (test code = 1.3 mg/dL 1.6-2.6 L 627) [id number] 08:16:00 Test Item Value Reference Range Interpretation Comments BLOOD UREA NITROGEN (BEAKER) (test 16 mg/dL 7-21 code = 354) [id number] 08:16:00 Test Item Value Reference Range Interpretation Comments CREATININE (BEAKER) 1.20 mg/dL 0.57-1.25 (test code = 358) EGFR (BEAKER) (test 66 mL/min/1.73 ESTIMA MAGDALENO GFR IS code = 1092) sq m NOT ACCURATE CREATININE CLEARANCE IN PREDICTING GLOMERULAR FILTRATION RATE . ESTIMATED GFR I S NOT APPLICABLE FOR DIALYSIS PATIEN TS. POCT-GLUCOSE [id number] 08:06:00 Test Item Value Reference Range Interpretation Comments POC-GLUCOSE METER > mg/dL 70-110 HH OUTSIDE ME ASURING (BEAKER) (test code RANGETES MAGDALENO AT [place] [address] = 1538) [place] [facility] [address] LACTIC ACID, [id number] 07:59:00 Test Item Value Reference Range Interpretation Comments LACTATE BLOOD VENOUS (2) (AKER) 1.5 mmol/L 0.5-2.2 (test code = 2872) POCT-GLUCOSE [id number] 21:27:00 Test Item Value Reference Range Interpretation Comments POC-GLUCOSE METER 454 mg/dL 70-110 HH Procedure Error/TESTED ([facility]) (test code AT [address] = 1538) [facility] 7703 0 POCT-GLUCOSE [id number] 18:12:00 Test Item Value Reference Range Interpretation Comments POC-GLUCOSE METER 121 mg/dL 70-110 H TESTED AT [place] [address] ([facility]) (test code = PAUL Tanner [facility] 1538) [address] SCREEN, [id number] 16:18:00 Test Item Value Reference Range Interpretation Comments TEST URINE (BEAKER) (test Negative code = 583) [id number] 13:03:00 Test Item Value Reference Range Interpretation Comments PHOSPHORUS (BEAKER) 2.8 mg/dL 2.3-4.7 Specimen slightly (test code = 604) hemolyzed COMPREHENSIVE METABOLIC [id number] 13:03:00 Test Item Value Reference Range Interpretation [...] = 364) CBC W/PLT COUNT & AUTO [id number] 12:51:00 Test Item Value Reference Range Interpretation [...] PERCENT (BEAKER) (test code = 2800) POCT-GLUCOSE [id number] 12:25:00 Test Item Value Reference Range Interpretation Comments POC-GLUCOSE METER 233 mg/dL 70-110 H TESTED AT [facility] 6720 (BEAKER) (test code = [place] 1538) [address] [id number] 09:48:00 Test Item Value Reference Range Interpretation Comments MAGNESIUM (BEAKER) (test code = 0.8 mg/dL 1.6-2.6 LL 627) BASIC METABOLIC [id number] 09:47:00 Test Item Value Reference Range Interpretation [...] NOT APPLICABLE FOR DIALYSIS PATIEN TS. TROPONIN [id number] 09:34:00 Test Item Value Reference Range Interpretation [...] neurological disease, and persistent tachyarrhythmia.RAPID INFLUENZA A&B [id number] 09:32:00 Test Item Value Reference Range Interpretation Comments RAPID INFLUENZA A AG (BEAKER) Negative Negative, Inconclusive (test code = 1622) RAPID INFLUENZA B AG (BEAKER) Negative Negative, Inconclusive (test code = 1623) RAD, CHEST, 1 VIEW, NON [id number] 09:29:00Reason for exam:->COUGHReason for exam:->SHORTNESS OF BREATHIs the patient ?->NoFINAL REPORT AP chest HISTORY: Shortness of breath. COMPARISON: 01/03/2018. IMPRESSION: Chest port present. Diffuse bronchiectasis similar to previous. No superimposed acute infiltrate. Heart size within normal limits. No effusion or pneumothorax. Signed: Volodymyr Olivarez MDReport Verified Date/Time: 02/26/2019 09:29:34 Reading Location: [address] Transitional Reading Room /[id number] 09:18:00 Test Item Value Reference Range Interpretation Comments PROTIME (BEAKER) (test code = 15.0 seconds 11.7-14.7 H 759) INR (BEAKER) (test code = 370) 1.2 <=5.9 PARTIAL THROMBOPLASTIN TIME 34.9 seconds 22.5-36.0 (BEAKER) (test code = 760) RECOMMENDED COUMADIN/WARFARIN INR THERAPY RANGESSTANDARD DOSE: 2.0 - 3.0 Includes: PROPHYLAXIS for venous thrombosis, systemic embolization; TREATMENT for venous thrombosis and/or pulmonary embolus.HIGH RISK: Target INR is 2.5-3.5 for patients with mechanical heart valves.CBC W/PLT COUNT & AUTO [id number] 09:17:00 Test Item Value Reference Range Interpretation [...] (BEAKER) (test code = 2801) POCT-LACTIC ACID, [id number] 09:05:00 Test Item Value Reference Range Interpretation Comments POC-LACTIC ACID, 1.6 mmol/L 0.9-1.7 TESTED AT [facility] 6720 VENOUS (BEAKER) (test [facility] Ciro [facility] code = 2805) [address] AFB CULTURE + [id number] 16:02:00 Test Item Value Reference Range Interpretation Comments CULTURE (BEAKER) (test No acid-fast bacilli code = 1095) isolated in 42 days AFB SMEAR (BEAKER) No acid fast bacilli (test code = 994) seen FUNGUS CULTURE + [id number] 18:23:00 Test Item Value Reference Range Interpretation Comments CULTURE (BEAKER) A 3+ [place] (test code = 1095) lisa frank FUNGUS SMEAR No fungi seen (BEAKER) (test code = 1406) POCT-GLUCOSE [id number] 21:56:00 Test Item Value Reference Range Interpretation Comments POC-GLUCOSE METER 215 mg/dL 70-110 H TESTED AT [place] [address] ([facility]) (test code = PAUL Tanner [place] 1538) [address] POCT-GLUCOSE [id number] 17:25:00 Test Item Value Reference Range Interpretation Comments POC-GLUCOSE METER 214 mg/dL 70-110 H TESTED AT [place] [address] ([facility]) (test code = PAUL Tanner [place] 1538) [address] POCT-GLUCOSE [id number] 13:42:00 Test Item Value Reference Range Interpretation Comments POC-GLUCOSE METER 161 mg/dL 70-110 H TESTED AT [place] [address] ([facility]) (test code = PAUL Tanner [facility] 1538) [address] CBC W/PLT COUNT & AUTO [id number] 11:14:00 Test Item Value Reference Range Interpretation [...] 0-1 PERCENT (BEAKER) (test code = 2801) [id number] 11:00:00 Test Item Value Reference Range Interpretation Comments MAGNESIUM (BEAKER) (test code = 1.1 mg/dL 1.6-2.6 L 627) COMPREHENSIVE METABOLIC [id number] 11:00:00 Test Item Value Reference Range Interpretation [...] 358) GLUCOSE RANDOM 263 mg/dL 70-105 H ([facility]) (test code = 652) CALCIUM ([facility]) 8.8 mg/dL 8.4-10.2 (test code = 697) AST (SGOT) ([facility]) 20 U/L 5-34 (test code = 353) ALT (SGPT) ([facility]) 28 U/L 6-55 (test code = 347) EGFR ([facility]) (test 127 ESTIMATE D GFR IS code = 1092) mL/min/1.73 sq NOT ACCURA TE m CREATININE CLEARANCE IN PREDICTING GLOMERULAR FILTRATION RATE . ESTIMATED GFR I S NOT APPLICABLE FOR DIALYSIS PATIEN TS. POCT-GLUCOSE [id number] 09:18:00 Test Item Value Reference Range Interpretation Comments POC-GLUCOSE METER 161 mg/dL 70-110 H TESTED AT [place] [address] ([facility]) (test code = [address] [email or web address] [place] 1538) [address] POCT-GLUCOSE [id number] 22:02:00 Test Item Value Reference Range Interpretation Comments POC-GLUCOSE METER 252 mg/dL 70-110 H TESTED AT [place] [address] ([facility]) (test code = [address] [email or web address] [place] 1538) [address] POCT-GLUCOSE [id number] 17:39:00 Test Item Value Reference Range Interpretation Comments POC-GLUCOSE METER 317 mg/dL 70-110 H TESTED AT [place] [address] ([facility]) (test code = [address] [email or web address] [place] 1538) [address] POCT-GLUCOSE [id number] 12:53:00 Test Item Value Reference Range Interpretation Comments POC-GLUCOSE METER 230 mg/dL 70-110 H TESTED AT [place] [address] ([facility]) (test code = [address] [email or web address] [place] 1538) [address] POCT-GLUCOSE [id number] 10:09:00 Test Item Value Reference Range Interpretation Comments POC-GLUCOSE METER 242 mg/dL 70-110 H TESTED AT [place] [address] ([facility]) (test code = [address] [email or web address] [place] 1538) [address] POCT-GLUCOSE [id number] 09:36:00 Test Item Value Reference Range Interpretation Comments POC-GLUCOSE METER 53 mg/dL 70-110 L TESTED AT [place] [address] ([facility]) (test code = [facility] Ciro [facility] [address] 1538) POCT-GLUCOSE [id number] 22:29:00 Test Item Value Reference Range Interpretation Comments POC-GLUCOSE METER 197 mg/dL 70-110 H TESTED AT [place] [address] (BEAKER) (test code = [facility] 1538) [address] POCT-GLUCOSE [id number] 17:51:00 Test Item Value Reference Range Interpretation Comments POC-GLUCOSE METER 292 mg/dL 70-110 H TEST[facility] AT [place] [address] [facility] (test code = [facility] 1538) [address] B-TYPE NATRIURETIC FACTOR ([id number])[id number] 17:20:00 Test Item Value Reference Range Interpretation Comments B-TYPE NATRIURETIC PEPTIDE (BEAKER) 119 pg/mL 0-100 H (test code = 700) [id number] 17:16:00 Test Item Value Reference Range Interpretation Comments MAGNESIUM (BEAKER) (test code = 1.0 mg/dL 1.6-2.6 LL 627) POCT-GLUCOSE [id number] 13:12:00 Test Item Value Reference Range Interpretation Comments POC-GLUCOSE METER 266 mg/dL 70-110 H TESTED AT [place] [address] ([facility]) (test code = [facility] 1538) [address] COMPREHENSIVE METABOLIC [id number] 09:09:00 Test Item Value Reference Range Interpretation [...] S NOT APPLICABLE FOR DIALYSIS PATIEN TS. [id number] 09:02:00 Test Item Value Reference Range Interpretation Comments MAGNESIUM (BEAKER) (test code = 1.4 mg/dL 1.6-2.6 L 627) CBC W/PLT COUNT & AUTO [id number] 07:56:00 Test Item Value Reference Range Interpretation [...] PERCENT (BEAKER) (test code = 2801) POCT-GLUCOSE [id number] 07:53:00 Test Item Value Reference Range Interpretation Comments POC-GLUCOSE METER 151 mg/dL 70-110 H TESTED AT [facility] 6720 (BEAKER) (test code = [place] 1538) [address] [id number] 23:34:00 Test Item Value Reference Range Interpretation Comments MAGNESIUM (BEAKER) (test code = 2.0 mg/dL 1.6-2.6 627) POCT-GLUCOSE [id number] 21:32:00 Test Item Value Reference Range Interpretation Comments POC-GLUCOSE METER 225 mg/dL 70-110 H TESTED AT [facility] 6720 (BEAKER) (test code = PA[place] 1538) [address] POCT-GLUCOSE [id number] 17:27:00 Test Item Value Reference Range Interpretation Comments POC-GLUCOSE METER 209 mg/dL 70-110 H TESTED AT [facility] 6720 (BEAKER) (test code = PAUL Tanner [facility] 1538) [address] POCT-GLUCOSE [id number] 12:13:00 Test Item Value Reference Range Interpretation Comments POC-GLUCOSE METER 181 mg/dL 70-110 H TESTED AT [facility] 6720 (BEAKER) (test code = PA[place] 1538) [address] [id number] 09:28:00 Test Item Value Reference Range Interpretation Comments MAGNESIUM (BEAKER) (test code = 1.7 mg/dL 1.6-2.6 627) COMPREHENSIVE METABOLIC [id number] 09:28:00 Test Item Value Reference Range Interpretation [...] PATIEN TS. CBC W/PLT COUNT & AUTO [id number] 09:02:00 Test Item Value Reference Range Interpretation [...] PERCENT (BEAKER) (test code = 2801) POCT-GLUCOSE [id number] 08:10:00 Test Item Value Reference Range Interpretation Comments POC-GLUCOSE METER 99 mg/dL 70-110 TESTED AT [facility] 6720 (BEAKER) (test code = PAUL Tanner [facility] [address] 1538) POCT-GLUCOSE [id number] 21:12:00 Test Item Value Reference Range Interpretation Comments POC-GLUCOSE METER 341 mg/dL 70-110 H Notified R Collin MD/TESTED (BEAKER) (test code = AT [facility] 6720 [facility] 1538) [facility] 7703 0 POCT-GLUCOSE [id number] 17:38:00 Test Item Value Reference Range Interpretation Comments POC-GLUCOSE METER 403 mg/dL 70-110 HH Notified R Collin [facility] (test code = AT [place] [id number] [facility] 1538) [facility] 7703 0 BLOOD GAS, [id number] 12:53:00 Test Item Value Reference Range Interpretation [...] (test code = 1819) 100.0 % POCT-GLUCOSE [id number] 12:00:00 Test Item Value Reference Range Interpretation Comments POC-GLUCOSE METER 274 mg/dL 70-110 H TESTED AT [facility] 6720 (BEAKER) (test code = PAUL Tanner [facility] 1538) [address] [id number] 11:20:00 Test Item Value Reference Range Interpretation Comments MAGNESIUM (BEAKER) (test code = 1.3 mg/dL 1.6-2.6 L 627) COMPREHENSIVE METABOLIC [id number] 11:20:00 Test Item Value Reference Range Interpretation [...] PATIEN TS. CBC W/PLT COUNT & AUTO [id number] 10:42:00 Test Item Value Reference Range Interpretation [...] PERCENT (BEAKER) (test code = 2801) POCT-GLUCOSE [id number] 08:13:00 Test Item Value Reference Range Interpretation Comments POC-GLUCOSE METER 135 mg/dL 70-110 H TESTED AT [facility] 6720 (BEAKER) (test code = [place] 1538) [address] POCT-GLUCOSE [id number] 21:28:00 Test Item Value Reference Range Interpretation Comments POC-GLUCOSE METER 175 mg/dL 70-110 H TESTED AT [place] [address] ([facility] (test code = PAUL Tanner [facility] 1538) [address] BLOOD GAS, [id number] 18:33:00 Test Item Value Reference Range Interpretation [...] (test code = 1819) 32.0 % POCT-GLUCOSE [id number] 18:31:00 Test Item Value Reference Range Interpretation Comments POC-GLUCOSE METER 349 mg/dL 70-110 H Notified R Collin STAPLETON/TESTED ([facility]) (test code = AT [place] [id number] [facility] 1538) [facility] 7703 0 [id number] 16:27:00 Test Item Value Reference Range Interpretation Comments MAGNESIUM (BEAKER) 2.8 mg/dL 1.6-2.6 H Specimen slightly (test code = 627) hemolyzed POCT-GLUCOSE [id number] 09:09:00 Test Item Value Reference Range Interpretation Comments POC-GLUCOSE METER 81 mg/dL 70-110 TESTED AT [place] [id number] ([facility] (test code = PAUL Tanner [facility] [address] 1538) [id number] 07:26:00 Test Item Value Reference Range Interpretation Comments MAGNESIUM (BEAKER) (test code = 1.4 mg/dL 1.6-2.6 L 627) COMPREHENSIVE METABOLIC [id number] 07:26:00 Test Item Value Reference Range Interpretation [...] PATIEN TS. CBC W/PLT COUNT & AUTO [id number] 07:00:00 Test Item Value Reference Range Interpretation [...] PERCENT (BEAKER) (test code = 2801) POCT-GLUCOSE [id number] 22:03:00 Test Item Value Reference Range Interpretation Comments POC-GLUCOSE METER 228 mg/dL 70-110 H TESTED AT [place] [address] ([facility]) (test code = [facility] 1538) [address] POCT-GLUCOSE [id number] 18:34:00 Test Item Value Reference Range Interpretation Comments POC-GLUCOSE METER 77 mg/dL 70-110 TESTED AT [place] [id number] ([facility]) (test code = [facility] [address] 1538) BLOOD GAS, [id number] 14:42:00 Test Item Value Reference Range Interpretation [...] code = 1819) 32.0 % CF RESPIRATORY [id number] 12:12:00 Test Item Value Reference Range Interpretation [...] or >4 3+ Normal respiratory derick presentPOCT-GLUCOSE [id number] 11:59:00 Test Item Value Reference Range Interpretation Comments POC-GLUCOSE METER 268 mg/dL 70-110 H TESTED AT [place] [address] ([facility]) (test code = [facility] 1538) [address] POCT-GLUCOSE [id number] 08:26:00 Test Item Value Reference Range Interpretation Comments POC-GLUCOSE METER 362 mg/dL 70-110 H TESTED AT [place] [address] ([facility]) (test code = [facility] 1538) [address] [id number] 08:26:00 Test Item Value Reference Range Interpretation Comments MAGNESIUM ([facility]) (test code = 1.5 mg/dL 1.6-2.6 L 627) COMPREHENSIVE METABOLIC [id number] 08:26:00 Test Item Value Reference Range Interpretation Comments TOTAL PROTEIN 7.0 gm/dL 6.0-8.3 ([facility]) (test code = 770) ALBUMIN ([facility]) 2.5 g/dL 3.5-5.0 L (test code = 1145) ALKALINE PHOSPHATASE 108 U/L 40-150 ([facility]) (test code = 346) BILIRUBIN TOTAL 0.1 [...] PATIEN TS. CBC W/PLT COUNT & AUTO [id number] 07:13:00 Test Item Value Reference Range Interpretation [...] PERCENT (BEAKER) (test code = 2801) POCT-GLUCOSE [id number] 21:49:00 Test Item Value Reference Range Interpretation Comments POC-GLUCOSE METER 225 mg/dL 70-110 H TESTED AT [place] [address] ([facility]) (test code = PAUL Tanner [facility] 1538) [address] POCT-GLUCOSE [id number] 16:47:00 Test Item Value Reference Range Interpretation Comments POC-GLUCOSE METER 367 mg/dL 70-110 H TESTED AT [place] [address] ([facility]) (test code = PAUL Tanner [facility] 1538) [address] POCT-GLUCOSE [id number] 13:10:00 Test Item Value Reference Range Interpretation Comments POC-GLUCOSE METER 446 mg/dL 70-110 HH Procedure Error/TESTED ([facility]) (test code AT [facility] [address] [place] = 1538) [place] [address] POCT-GLUCOSE [id number] 08:29:00 Test Item Value Reference Range Interpretation Comments POC-GLUCOSE METER 221 mg/dL 70-110 H TESTED AT [facility] 6720 (BEAKER) (test code = PAUL R [place] 1538) [address] [id number] 05:57:00 Test Item Value Reference Range Interpretation Comments MAGNESIUM (BEAKER) (test code = 1.0 mg/dL 1.6-2.6 LL 627) COMPREHENSIVE METABOLIC [id number] 05:11:00 Test Item Value Reference Range Interpretation [...] APPLICABLE FOR DIALYSIS PATIEN TS. LACTIC ACID, [id number] 04:59:00 Test Item Value Reference Range Interpretation Comments LACTATE BLOOD VENOUS (2) (BEAKER) 1.9 mmol/L 0.5-2.2 (test code = 2872) CBC W/PLT COUNT & AUTO [id number] 04:47:00 Test Item Value Reference Range Interpretation [...] PERCENT (BEAKER) (test code = 2801) POCT-GLUCOSE [id number] 22:50:00 Test Item Value Reference Range Interpretation Comments POC-GLUCOSE METER 338 mg/dL 70-110 H TESTED AT [facility] 6720 (BEAKER) (test code = [facility] 1538) [address] POCT-GLUCOSE [id number] 18:35:00 Test Item Value Reference Range Interpretation Comments POC-GLUCOSE METER 177 mg/dL 70-110 H TESTED AT [facility] 67 (BEAKER) (test code = [facility] 1538) [address] BASIC METABOLIC [id number] 15:04:00 Test Item Value Reference Range Interpretation [...] PATIEN TS. CBC W/PLT COUNT & AUTO [id number] 15:00:00 Test Item Value Reference Range Interpretation [...] PERCENT (BEAKER) (test code = 2801) POCT-GLUCOSE [id number] 12:20:00 Test Item Value Reference Range Interpretation Comments POC-GLUCOSE METER 275 mg/dL 70-110 H TESTED AT [place] [address] ([facility]) (test code = PAUL Tanner [facility] 1538) [address] BLOOD [id number] 02:00:00 Test Item Value Reference Range Interpretation Comments CULTURE ([facility]) (test No growth in 5 days code = 1095) POCT-GLUCOSE [id number] 22:34:00 Test Item Value Reference Range Interpretation Comments POC-GLUCOSE METER 339 mg/dL 70-110 H TESTED AT [place] [address] ([facility]) (test code = NAOMIVT Ciro [facility] 1538) [address] BLOOD [id number] 20:01:00 Test Item Value Reference Range Interpretation Comments CULTURE ([facility]) (test No growth in 5 days code = 1095) POCT-GLUCOSE [id number] 19:07:00 Test Item Value Reference Range Interpretation Comments POC-GLUCOSE METER 296 mg/dL 70-110 H TESTED AT [place] [address] ([facility]) (test code = NAOMIVT Ciro [facility] 1538) [address] POCT-GLUCOSE [id number] 12:53:00 Test Item Value Reference Range Interpretation Comments POC-GLUCOSE METER 104 mg/dL 70-110 TESTED AT [place] [address] ([facility]) (test code = [facility] 1538) [id number] POCT-GLUCOSE [id number] 09:10:00 Test Item Value Reference Range Interpretation Comments POC-GLUCOSE METER 348 mg/dL 70-110 H Notified R Collin STAPLETON/TESTED ([facility]) (test code = AT [address] 1538) [facility] [id number] POCT-GLUCOSE [id number] 21:35:00 Test Item Value Reference Range Interpretation Comments POC-GLUCOSE METER 209 mg/dL 70-110 H TESTED AT [place] [address] ([facility]) (test code = [facility] 1538) [id number] BASIC METABOLIC [id number] 18:44:00 Test Item Value Reference Range Interpretation Comments SODIUM ([facility]) 140 meq/L 136-145 (test code = 381) POTASSIUM ([facility]) 4.1 meq/L 3.5-5.1 (test code = 379) [...] PATIEN TS. CBC W/PLT COUNT & AUTO [id number] 18:10:00 Test Item Value Reference Range Interpretation [...] PERCENT (BEAKER) (test code = 2801) POCT-GLUCOSE [id number] 17:13:00 Test Item Value Reference Range Interpretation Comments POC-GLUCOSE METER 132 mg/dL 70-110 H TEST[facility] AT [place] [address] [facility] (test code = [facility] 1538) [id number] POCT-GLUCOSE [id number] 12:52:00 Test Item Value Reference Range Interpretation Comments POC-GLUCOSE METER 145 mg/dL 70-110 H TEST[facility] [place] [address] [facility] (test code = [facility] 1538) [address] SPIN/CONCENTRATION [id number] 12:12:00 Test Item Value Reference Range Interpretation Comments CONCENTRATION CHARGED (BEAKER) (test Done code = 2657) POCT-GLUCOSE [id number] 09:13:00 Test Item Value Reference Range Interpretation Comments POC-GLUCOSE METER 267 mg/dL 70-110 H TESTED AT [place] [address] [facility] (test code = [facility] 1538) [address] POCT-GLUCOSE [id number] 21:53:00 Test Item Value Reference Range Interpretation Comments POC-GLUCOSE METER 233 mg/dL 70-110 H TESTED AT [place] [address] ([facility] (test code = [facility] 1538) 73526 POCT-GLUCOSE [id number] 17:55:00 Test Item Value Reference Range Interpretation Comments POC-GLUCOSE METER 202 mg/dL 70-110 H TESTED AT [place] [id number] ([facility]) (test code = PAUL Tanner [facility] 1538) 99129 POCT-GLUCOSE [id number] 13:25:00 Test Item Value Reference Range Interpretation Comments POC-GLUCOSE METER 184 mg/dL 70-110 H TESTED AT [place] [address]8720 ([facility]) (test code = PAUL Tanner [place] 581198) [address] POCT-GLUCOSE [id number] 11:30:00 Test Item Value Reference Range Interpretation Comments POC-GLUCOSE METER 50 mg/dL 70-110 L Notified R N MD/TESTED AT ([facility]) (test code = [place] [address]) [facility] 7703 0 POCT-GLUCOSE [id number] 08:52:00 Test Item Value Reference Range Interpretation Comments POC-GLUCOSE METER 52 mg/dL 70-110 L Notified R Collin MD/TESTED AT ([facility]) (test code = [place] [address]) [facility] 7703 0 BASIC METABOLIC [id number] 04:53:00 Test Item Value Reference Range Interpretation [...] APPLICABLE FOR DIALYSIS PATIEN TS. LACTIC ACID, [id number] 04:32:00 Test Item Value Reference Range Interpretation Comments LACTATE BLOOD VENOUS (2) (BEAKER) 1.0 mmol/L 0.5-2.2 (test code = 2872) RAD, ABDOMEN/KUB, 1 VIEW [id number] 23:28:00Reason for exam:->Abdominal painShould this be performed at the bedside?->YesFINAL REPORT Abdomen. HISTORY: Abdominal pain. COMPARISON STUDY: November 16, 2018. FINDINGS: Two supine views of the abdomen demonstrate a significant amount of colonic stool suggesting constipation. No dilated bowel loops are identified to suggest obstruction. Degenerative changes are seen. This film is insensitive for the detection of free air. Signed: Ariana Youngblood Verified Date/Time: 01/05/2019 23:28:04 Reading Location: [address] Consult Reading Room POCT- GLUCOSE [id number] 23:26:00 Test Item Value Reference Range Interpretation Comments POC-GLUCOSE METER 251 mg/dL 70-110 H TESTED AT [facility] 67 (BEAKER) (test code = [facility] 1538) [address] POCT-GLUCOSE [id number] 19:25:00 Test Item Value Reference Range Interpretation Comments POC-GLUCOSE METER 296 mg/dL 70-110 H TESTED AT [facility] 6720 (BEAKER) (test code = PAUL Tanner [facility] 1538) [address] BASIC METABOLIC [id number] 13:27:00 Test Item Value Reference Range Interpretation [...] S NOT APPLICABLE FOR DIALYSIS PATIEN TS. [id number] 13:02:00 Test Item Value Reference Range Interpretation Comments LIPASE (SIMI) (test code = 749) 4 U/L 8-78 L POCT-GLUCOSE [id number] 12:55:00 Test Item Value Reference Range Interpretation Comments POC-GLUCOSE METER 340 mg/dL 70-110 H Notified R Collin STAPLETON/TESTED (SIMI) (test code = AT [place] [address]) [facility] 770 0 HEMOGLOBIN [id number] 09:59:00 Test Item Value Reference Range Interpretation Comments HEMOGLOBIN A1C (SIMI) (test code = 10.5 % 4.3-6.1 H 368) POCT-GLUCOSE [id number] 08:28:00 Test Item Value Reference Range Interpretation Comments POC-GLUCOSE METER 336 mg/dL 70-110 H Notified R Collin STAPLETON/TESTED (SIMI) (test code = AT [place] [address]) [facility] 770 0 [id number] 06:56:00 Test Item Value Reference Range Interpretation Comments BLOOD UREA NITROGEN (SIMI) (test 10 mg/dL 7-21 code = 354) [id number] 06:56:00 Test Item Value Reference Range Interpretation Comments CREATININE (KIAKER) 0.96 mg/dL 0.57-1.25 (test code = 358) EGFR (SIMI) (test 85 mL/min/1.73 ESTIMA MAGDALENO GFR IS code = 1092) sq m NOT ACCURATE CREATININE CLEARANCE IN PREDICTING GLOMERULAR FILTRATION RATE . ESTIMATED GFR I S NOT APPLICABLE FOR DIALYSIS PATIEN TS. POCT-GLUCOSE [id number] 06:30:00 Test Item Value Reference Range Interpretation Comments POC-GLUCOSE METER 357 mg/dL 70-110 H TESTED AT [facility] 67 (SIMI) (test code = PAUL Tanner [place] [address]) [address] LACTIC ACID, [id number] 05:51:00 Test Item Value Reference Range Interpretation Comments LACTATE BLOOD VENOUS (2) (BEAKER) 2.1 mmol/L 0.5-2.2 (test code = 2872) SCREEN, [id number] 04:22:00 Test Item Value Reference Range Interpretation Comments TEST URINE (BEAKER) (test Negative code = 583) POCT-GLUCOSE [id number] 03:11:00 Test Item Value Reference Range Interpretation Comments POC-GLUCOSE METER 403 mg/dL 70-110 HH TESTED AT [place] [address] [facility] (test code = [facility] Ciro [facility] 1538) [address] POCT-GLUCOSE [id number] 00:43:00 Test Item Value Reference Range Interpretation Comments POC-GLUCOSE METER 430 mg/dL 70-110 HH TESTED AT [place] [address] ([facility] (test code = [facility] 1538) [address] BASIC METABOLIC [id number] 22:43:00 Test Item Value Reference Range Interpretation [...] NOT APPLICABLE FOR DIALYSIS PATIEN TS. POCT-GLUCOSE [id number] 22:42:00 Test Item Value Reference Range Interpretation Comments POC-GLUCOSE METER > mg/dL 70-110 HH OUTSIDE ME ASURING (BEAKER) (test code RANGENot ified JORDON STAPLETON/TESTED = 1538) AT [facility] [address] ZEPEDA [facility] 7703 0 GLUCOSE-STAT [id number] 20:33:00 Test Item Value Reference Range Interpretation Comments GLUCOSE RANDOM (BEAKER) (test code 580 mg/dL 70-110 HH = 652) [id number] 19:57:00 Test Item Value Reference Range Interpretation Comments MAGNESIUM (BEAKER) (test code = 1.6 mg/dL 1.6-2.6 627) [id number] 19:57:00 Test Item Value Reference Range Interpretation Comments BLOOD UREA NITROGEN (BEAKER) (test 10 mg/dL 7- code = 354) [id number] 19:57:00 Test Item Value Reference Range Interpretation Comments CREATININE (BEAKER) 1.25 mg/dL 0.57-1.25 (test code = 358) EGFR ([facility] (test 63 mL/min/1.73 ESTIMA MAGDALENO GFR IS code = 1092) sq m NOT ACCURATE CREATININE CLEARANCE IN PREDICTING GLOMERULAR FILTRATION RATE . ESTIMATED GFR I S NOT APPLICABLE FOR DIALYSIS PATIEN TS. POCT-GLUCOSE [id number] 15:07:00 Test Item Value Reference Range Interpretation Comments POC-GLUCOSE METER 466 mg/dL 70-110 HH TESTED AT [facility] 67 ([facility]) (test code = PAUL Tanner [facility] 1538) [address] RESPIRATORY PANEL [id number] 14:21:00 Test Item Value Reference Range Interpretation [...] detected Not detected, (BEAKER) (test code = 6549) Equivocal PARAINFLUENZA VIRUS 1 Not detected Not [...] decisions. This sample was tested at the [facility] using the [employer] FilmArray Respiratory Panel. It is FDA cleared and has been verified and approved by the [facility] for clinical use on nasal swab specimens. It is not FDA-cleared for use on bronchial wash/lavage samples. However, for this sample type, validation was performed and test characteristics were determined and approved, by [facility] for clinical use under the Clinical Laboratory Improvement Amendments (CLIA) of 1988 requirements. Therefore, FDA clearance isnot required. This laboratory is CLIA- certified and [employer] [place] [employer] (CAP)-accredited to perform high complexity testing.POCT-GLUCOSE [id number] 08:29:00 Test Item Value Reference Range Interpretation Comments POC-GLUCOSE METER 368 mg/dL 70-110 H Notified R Collin STAPLETON/TESTED (SIMI) (test code = AT [facility] [address] [place] [address] 1538) [facility] 7703 0 POCT-GLUCOSE [id number] 00:18:00 Test Item Value Reference Range Interpretation Comments POC-GLUCOSE METER 218 mg/dL 70-110 H TESTED AT [facility] 6720 (BEAKER) (test code = PAUL Tanner [facility] 1538) 20[address] RAPID INFLUENZA A&B [id number] 19:46:00 Test Item Value Reference Range Interpretation Comments RAPID INFLUENZA A AG (BEAKER) Negative Negative, Inconclusive (test code = 1622) RAPID INFLUENZA B AG (BEAKER) Negative Negative, Inconclusive (test code = 1623) RAD, CHEST, 1 VIEW, NON [id number] 19:27:00Reason for exam:->CHEST PAINShould this be performed at the bedside?->YesFINAL REPORT INDICATION: CHEST PAIN COMPARISON:November 08, 2018 TECHNIQUE: Chest radiograph, single view, portable technique. FINDINGS / IMPRESSION: Upper lung bronchiectasis and faint opacities suggesting cystic fibrosis. No discrete new parenchymal opacity that would indicate new infection. Right chest port terminates at the cavoatrial junction. Signed: Debbie Enriquez MDReport Verified Date/Time: 01/03/2019 19:27:38 Reading Location: [address] Consult Reading Room POCT-LACTIC ACID, [id number] 19:05:00 Test Item Value Reference Range Interpretation Comments POC-LACTIC ACID, 0.9 mmol/L 0.9-1.7 TESTED AT [place] [id number] VENOUS (BEAKER) (test [facility] code = 2805) [address] [id number] 18:00:00 Test Item Value Reference Range Interpretation Comments MAGNESIUM (BEAKER) (test code = 1.0 mg/dL 1.6-2.6 LL 627) BASIC METABOLIC [id number] 17:50:00 Test Item Value Reference Range Interpretation [...] APPLICABLE FOR DIALYSIS PATIEN TS. HEPATIC FUNCTION [id number] 17:50:00 Test Item Value Reference Range Interpretation [...] 6-55 347) CBC W/PLT COUNT & AUTO [id number] 17:39:00 Test Item Value Reference Range Interpretation [...] (test code = 2801) AFB CULTURE + [id number] 12:53:00 Test Item Value Reference Range Interpretation Comments CULTURE (BEAKER) (test No acid-fast bacilli code = 1095) isolated in 42 days AFB SMEAR (BEAKER) No acid fast bacilli (test code = 994) seen FUNGUS CULTURE + [id number] 18:00:00 Test Item Value Reference Range Interpretation Comments CULTURE (BEAKER) (test No fungus isolated in code = 1095) 28 days FUNGUS SMEAR (BEAKER) No fungi seen (test code = 1406) POCT-GLUCOSE [id number] 12:41:00 Test Item Value Reference Range Interpretation Comments POC-GLUCOSE METER 59 mg/dL 70-110 L Notified R N MD/TESTED AT (BEAKER) (test code = [facility] [address] 1538) [facility] 7703 0 POCT-GLUCOSE [id number] 08:51:00 Test Item Value Reference Range Interpretation Comments POC-GLUCOSE METER 461 mg/dL 70-110 HH Notified R N MD/TESTED (BEAKER) (test code = AT [facility] [address] [facility] 7703 0 [id number] 06:03:00 Test Item Value Reference Range Interpretation Comments PHOSPHORUS (BEAKER) (test code = 3.7 mg/dL 2.3-4.7 604) [id number] 06:03:00 Test Item Value Reference Range Interpretation Comments MAGNESIUM (BEAKER) (test code = 1.6 mg/dL 1.6-2.6 627) BASIC METABOLIC [id number] 06:03:00 Test Item Value Reference Range Interpretation [...] NOT APPLICABLE FOR DIALYSIS PATIEN TS. POCT-GLUCOSE [id number] 21:37:00 Test Item Value Reference Range Interpretation Comments POC-GLUCOSE METER 207 mg/dL 70-110 H TESTED AT [facility] 6720 (BEAKER) (test code = PAUL Tanner [place] 1538) [address] POCT-GLUCOSE [id number] 18:28:00 Test Item Value Reference Range Interpretation Comments POC-GLUCOSE METER 207 mg/dL 70-110 H TESTED AT [facility] 6720 (BEAKER) (test code = PAUL Tanner [place] 1538) [address] POCT-GLUCOSE [id number] 12:15:00 Test Item Value Reference Range Interpretation Comments POC-GLUCOSE METER 91 mg/dL 70-110 TESTED AT [facility] 6720 (BEAKER) (test code = [place] [address] 1538) POCT-GLUCOSE [id number] 08:38:00 Test Item Value Reference Range Interpretation Comments POC-GLUCOSE METER 189 mg/dL 70-110 H TESTED AT [facility] 6720 (BEAKER) (test code = PAUL Tanner [place] 1538) [address] [id number] 05:25:00 Test Item Value Reference Range Interpretation Comments PHOSPHORUS (BEAKER) (test code = 4.0 mg/dL 2.3-4.7 604) [id number] 05:25:00 Test Item Value Reference Range Interpretation Comments MAGNESIUM (BEAKER) (test code = 1.4 mg/dL 1.6-2.6 L 627) BASIC METABOLIC [id number] 05:25:00 Test Item Value Reference Range Interpretation [...] 8.4-10.2 L (test code = 697) EGFR ([facility]) (test 108 mL/min/1.73 ESTIM ATED GFR IS code = 1092) sq m NOT ACCURATE CREATININE CLEARANCE IN PREDICTING GLOMERULAR FILTRATION RATE . ESTIMATED GFR I S NOT APPLICABLE FOR DIALYSIS PATIEN TS. POCT-GLUCOSE [id number] 21:35:00 Test Item Value Reference Range Interpretation Comments POC-GLUCOSE METER 170 mg/dL 70-110 H TESTED AT [place] [address] ([facility]) (test code = PAUL Tanner [facility] 1538) [address]34 POCT-GLUCOSE [id number] 18:20:00 Test Item Value Reference Range Interpretation Comments POC-GLUCOSE METER 276 mg/dL 70-110 H TESTED AT [place] [address] ([facility]) (test code = PAUL Tanner [facility] 1538) [address] RAD, ABDOMEN/KUB, 1 VIEW [id number] 15:00:00Reason for exam:->Abd distensionShould this be performed at the bedside?->YesFINAL REPORT Abdomen x-ray Clinical Diagnosis: Abdominal distentionComparison: J anuary 2018Views: One Report:Abdomen:There is a nonspecific bowel gas pattern. There is no evidence of GI tract obstruction. The visible regional skeleton is intact. Fecal material is distributed throughout the colon . Calcific changes noted adjacent to the left hip which is unchanged as compared t o the prior study. . There is no evidence of increased calcification overlying the expected locationof the right upper quadrant or gallbladder fossa . There is no mural edema or definite free intraperitoneal air. There is no evidence of organomegaly Impression:Fecal material distributed throughout the colon. Nonspecific abdomen exam. Signed: Sravanthi Flores MDReport Verified Date/Time: 11/16/2018 15:00:01 Reading Location: [facility] [id number] Consult Reading Room POCT-GLUCOSE [id number] 13:21:00 Test Item Value Reference Range Interpretation Comments POC-GLUCOSE METER 108 mg/dL 70-110 TESTED AT [facility] 67 ([facility]) (test code = PAUL Tanner [facility] 1538) [address] BASIC METABOLIC [id number] 08:06:00 Test Item Value Reference Range Interpretation [...] S NOT APPLICABLE FOR DIALYSIS PATIEN TS. [id number] 08:03:00 Test Item Value Reference Range Interpretation Comments PHOSPHORUS (BEAKER) (test code = 3.2 mg/dL 2.3-4.7 604) [id number] 08:03:00 Test Item Value Reference Range Interpretation Comments MAGNESIUM (BEAKER) (test code = 1.1 mg/dL 1.6-2.6 L 627) HEPATIC FUNCTION [id number] 08:03:00 Test Item Value Reference Range Interpretation [...] code = 35 U/L 6-55 347) POCT-GLUCOSE [id number] 02:11:00 Test Item Value Reference Range Interpretation Comments POC-GLUCOSE METER 171 mg/dL 70-110 H TESTED AT [place] [address] ([facility]) (test code = PAUL Tanner [facility] 1538) [address] POCT-GLUCOSE [id number] 22:03:00 Test Item Value Reference Range Interpretation Comments POC-GLUCOSE METER 264 mg/dL 70-110 H TESTED AT [place] [address] ([facility]) (test code = [facility] 1538) [address] POCT-GLUCOSE [id number] 18:03:00 Test Item Value Reference Range Interpretation Comments POC-GLUCOSE METER 293 mg/dL 70-110 H TESTED AT [place] [address] ([facility]) (test code = [facility] 1538) [address] POCT-GLUCOSE [id number] 12:27:00 Test Item Value Reference Range Interpretation Comments POC-GLUCOSE METER 125 mg/dL 70-110 H TESTED AT [place] [address] ([facility]) (test code = [facility] Ciro [facility] 1538) [address] POCT-GLUCOSE [id number] 08:21:00 Test Item Value Reference Range Interpretation Comments POC-GLUCOSE METER 180 mg/dL 70-110 H TESTED AT [place] [address] ([facility]) (test code = [facility] Ciro [facility] 1538) [address]167 [id number] 07:20:00 Test Item Value Reference Range Interpretation Comments BLOOD UREA NITROGEN ([facility]) (test 18 mg/dL 7-21 code = 354) [id number] 07:20:00 Test Item Value Reference Range Interpretation Comments CREATININE ([facility]) 0.72 mg/dL 0.57-1.25 Specimen slightly (test code = 358) hemolyzed EGFR ([facility]) (test 119 mL/min/1.73 ESTIM ATED GFR IS code = 1092) sq m NOT ACCURATE CREATININE CLEARANCE IN PREDICTING GLOMERULAR FILTRATION RATE . ESTIMATED GFR I S NOT APPLICABLE FOR DIALYSIS PATIEN TS. CBC W/PLT COUNT & AUTO [id number] 07:03:00 Test Item Value Reference Range Interpretation Comments WHITE BLOOD CELL COUNT ([facility]) 15.3 K/ L 3.5-10.5 H (test code [...] PERCENT (BEAKER) (test code = 2801) POCT-GLUCOSE [id number] 02:14:00 Test Item Value Reference Range Interpretation Comments POC-GLUCOSE METER 239 mg/dL 70-110 H TESTED AT [facility] 6720 ([facility]) (test code = PAUL Tanner [facility] 1538) [address] POCT-GLUCOSE [id number] 21:33:00 Test Item Value Reference Range Interpretation Comments POC-GLUCOSE METER 108 mg/dL 70-110 TESTED AT [facility] 6720 ([facility]) (test code = PAUL Tanner [facility] 1538) [address]209 POCT-GLUCOSE [id number] 17:52:00 Test Item Value Reference Range Interpretation Comments POC-GLUCOSE METER 101 mg/dL 70-110 TESTED AT [facility] 6720 ([facility]) (test code = PAUL Tanner [facility] 1538) [address] POCT-GLUCOSE [id number] 13:35:00 Test Item Value Reference Range Interpretation Comments POC-GLUCOSE METER 308 mg/dL 70-110 H Notified R Collin STAPLETON/TESTED ([facility]) (test code = AT [facility] 67[address] [facility] 1538) [facility] 7703 0 U/S, ABDOMINAL, [id number] 12:38:00Abdomen limited area? Add comment if clarification is needed.->LiverReason for exam:->please evaluate for cirrhosisFINAL REPORT Right upper quadrant abdominal ultrasound Clinical History: Cirrhosis COMPARISON: September 29, 2018 Discussion: Sonographic evaluation of the right upper quadrant of the abdomen is performed. The liver has normal size and measures 14.7 cm in length. There is coarse liver echotexture, without focal mass. There is no intra or extrahepatic biliary dilatation. The common bile duct measures 3 mm. The gallbladder is contracted without evidence of gallbladder wall thickening, cholelithiasis, pericholecystic fluid, or sonographic Isbell's sign. The main portal vein diameteris normal, measuring 11 mm. The pancreatic head, body, and proximal tail demonstrate no abnormality.There is no ascites. The right kidney measures 11.4 cm in length and is normal in size. There is no renal mass, hydronephrosis, or shadowing renal calculus. Segments of the inferior vena cava and aortavisualized demonstrate no abnormality. Impression: 1. Coarse liver echotexture without other sonographic indication of liver cirrhosis. Clinical correlation is recommended. If indicated, elastography can be performed for further assessment. 2. Contracted gallbladder secondary to recent meal. Signed: Von Jacobs MDReport Verified Date/Time: 11/14/2018 12:38:57 Reading Location: [facility] [id number] Ultrasound Reading [facility] [id number] 11:57:00 Test Item Value Reference Range Interpretation [...] or >4 1+ Normal respiratory derick presentPOCT-GLUCOSE [id number] 09:19:00 Test Item Value Reference Range Interpretation Comments POC-GLUCOSE METER 385 mg/dL 70-110 H Notified R N MD/TESTED (BEAKER) (test code = AT [facility] 67[address] [facility] 0060) [facility] 7703 0 COMPREHENSIVE METABOLIC [id number] 08:26:00 Test Item Value Reference Range Interpretation [...] 8.4-10.2 (test code = 697) AST (SGOT) ([facility]) 30 U/L 5-34 (test code = 353) ALT (SGPT) ([facility]) 47 U/L 6-55 (test code = 347) EGFR ([facility]) (test 115 ESTIMATE D GFR IS code = 1092) mL/min/1.73 sq NOT ACCURA TE m CREATININE CLEARANCE IN PREDICTING GLOMERULAR FILTRATION RATE . ESTIMATED GFR I S NOT APPLICABLE FOR DIALYSIS PATIEN TS. POCT-GLUCOSE [id number] 02:51:00 Test Item Value Reference Range Interpretation Comments POC-GLUCOSE METER 353 mg/dL 70-110 H Notified R N MD/TESTED ([facility]) (test code = AT [place] [address]) [place] [address] 0 SCREEN, [id number] 22:52:00 Test Item Value Reference Range Interpretation Comments TEST URINE ([facility]) (test Negative code = 583) POCT-GLUCOSE [id number] 21:27:00 Test Item Value Reference Range Interpretation Comments POC-GLUCOSE METER 221 mg/dL 70-110 H TESTED AT [place] [address] ([facility]) (test code = PAUL Tanner [facility] 1538) [address] POCT-GLUCOSE [id number] 19:14:00 Test Item Value Reference Range Interpretation Comments POC-GLUCOSE METER 60 mg/dL 70-110 L Notified R Collin MD/TESTED AT ([facility]) (test code = [place] [address]3828) [facility] 7703 0 POCT-GLUCOSE [id number] 12:58:00 Test Item Value Reference Range Interpretation Comments POC-GLUCOSE METER 327 mg/dL 70-110 H TESTED AT [place] [address] ([facility]) (test code = PAUL Tanner [facility] 1538) 7[address] POCT-GLUCOSE [id number] 08:13:00 Test Item Value Reference Range Interpretation Comments POC-GLUCOSE METER 372 mg/dL 70-110 H TESTED AT [place] [address] ([facility]) (test code = PAUL Tanner [facility] 1538) [address] [id number] 05:57:00 Test Item Value Reference Range Interpretation Comments BLOOD UREA NITROGEN ([facility]) (test 14 mg/dL 7-21 code = 354) [id number] 05:57:00 Test Item Value Reference Range Interpretation Comments CREATININE ([facility]) 0.72 mg/dL 0.57-1.25 (test code = 358) EGFR [facility] (test 119 mL/min/1.73 ESTIM ATED GFR IS code = 1092) sq m NOT ACCURATE CREATININE CLEARANCE IN PREDICTING GLOMERULAR FILTRATION RATE . ESTIMATED GFR I S NOT APPLICABLE FOR DIALYSIS PATIEN TS. POCT-GLUCOSE [id number] 01:39:00 Test Item Value Reference Range Interpretation Comments POC-GLUCOSE METER 267 mg/dL 70-110 H TESTED AT [place] [address] ([facility]) (test code = PAUL Tanner [facility] 1538) 139[address] POCT-GLUCOSE [id number] 22:42:00 Test Item Value Reference Range Interpretation Comments POC-GLUCOSE METER 97 mg/dL 70-110 TESTED AT [place] [address] ([facility]) (test code = [facility] [id number]) POCT-GLUCOSE [id number] 21:47:00 Test Item Value Reference Range Interpretation Comments POC-GLUCOSE METER 64 mg/dL 70-110 L Notified Ciro Polanco MD/TESTED AT ([facility]) (test code = [address] 1538) [facility] [id number] POCT-GLUCOSE [id number] 18:48:00 Test Item Value Reference Range Interpretation Comments POC-GLUCOSE METER 198 mg/dL 70-110 H TESTED AT [place] [address] ([facility]) (test code = NAOMITAYO T[facility] [facility] 1538) [address] COMPREHENSIVE METABOLIC [id number] 18:06:00 Test Item Value Reference Range Interpretation Comments TOTAL PROTEIN 6.9 gm/dL 6.0-8.3 (BEAKER) (test code = 770) ALBUMIN ([facility]) 2.6 g/dL 3.5-5.0 L (test code = [...] S NOT APPLICABLE FOR DIALYSIS PATIEN TS. [id number] 18:06:00 Test Item Value Reference Range Interpretation Comments LIPASE (BEAKER) (test code = 749) < U/L 8-78 L URINALYSIS WITH MICROSCOPIC IF [id number] 17:06:00 Test Item Value Reference Range Interpretation [...] 463) SOURCE(BEAKER) (test code = 2795) URINALYSIS [id number] 17:06:00 Test Item Value Reference Range Interpretation Comments RBC UA (BEAKER) (test code = 519) 1 /HPF WBC UA (BEAKER) (test code = 520) 8 /HPF SQUAMOUS EPITHELIAL (BEAKER) (test 1 /HPF code = 516) POCT-GLUCOSE [id number] 13:05:00 Test Item Value Reference Range Interpretation Comments POC-GLUCOSE METER 120 mg/dL 70-110 H TESTED AT [facility] 6720 (BEAKER) (test code = [place] 1538) [address] RAD, ABDOMEN/KUB, 1 VIEW [id number] 12:20:00Reason for exam:->abdominal painFINAL REPORT ONE VIEW ABDOMEN HISTORY: Abdominal pain COMPARISON: 08/24/2018 FINDINGS: Single supine AP image of the abdomen was obtained. Gas and fecal material is noted scatteredthroughout large intestine to the level of the [...] MDReport Verified Date/Time: 11/12/2018 12:20:31 Reading Location: [address] Transitional Reading Room [id number] 08:09:00 Test Item Value Reference Range Interpretation Comments BLOOD UREA NITROGEN (BEAKER) (test 12 mg/dL 7 code = 354) [id number] 08:09:00 Test Item Value Reference Range Interpretation Comments CREATININE (BEAKER) 0.72 mg/dL 0.57-1.25 (test code = 358) EGFR (BEAKER) (test 119 mL/min/1.73 ESTIM ATED GFR IS code = 1092) sq m NOT ACCURATE CREATININE CLEARANCE IN PREDICTING GLOMERULAR FILTRATION RATE . ESTIMATED GFR I S NOT APPLICABLE FOR DIALYSIS PATIEN TS. POCT-GLUCOSE [id number] 08:05:00 Test Item Value Reference Range Interpretation Comments POC-GLUCOSE METER 144 mg/dL 70-110 H TESTED AT [place] [address] ([facility]) (test code = PAUL Tanner [facility] 1538) [address] POCT-GLUCOSE [id number] 03:58:00 Test Item Value Reference Range Interpretation Comments POC-GLUCOSE METER 316 mg/dL 70-110 H Notified Ciro Polanco MD/TESTED ([facility]) (test code = AT [address] 1538) [place] [address] POCT-GLUCOSE [id number] 21:17:00 Test Item Value Reference Range Interpretation Comments POC-GLUCOSE METER 238 mg/dL 70-110 H TESTED AT [place] [address] ([facility]) (test code = PAUL Tanner [facility] 1538) [address] POCT-GLUCOSE [id number] 18:22:00 Test Item Value Reference Range Interpretation Comments POC-GLUCOSE METER 278 mg/dL 70-110 H TESTED AT [place] [address] ([facility]) (test code = PAUL Tanner [facility] 1538) [address] POCT-GLUCOSE [id number] 14:14:00 Test Item Value Reference Range Interpretation Comments POC-GLUCOSE METER 137 mg/dL 70-110 H TESTED AT [place] [address] ([facility]) (test code = PAUL Tanner [facility] 1538) [address] POCT-GLUCOSE [id number] 09:28:00 Test Item Value Reference Range Interpretation Comments POC-GLUCOSE METER 356 mg/dL 70-110 H TESTED AT [place] [address] ([facility]) (test code = PAUL Tanner [facility] 1538) [address] [id number] 07:01:00 Test Item Value Reference Range Interpretation Comments BLOOD UREA NITROGEN ([facility]) (test 17 mg/dL 7 code = 354) [id number] 07:01:00 Test Item Value Reference Range Interpretation Comments CREATININE ([facility]) 0.77 mg/dL 0.57-1.25 (test code = 358) EGFR ([facility]) (test 110 mL/min/1.73 ESTIM ATED GFR IS code = 1092) sq m NOT ACCURATE CREATININE CLEARANCE IN PREDICTING GLOMERULAR FILTRATION RATE . ESTIMATED GFR I S NOT APPLICABLE FOR DIALYSIS PATIEN TS. POCT-GLUCOSE [id number] 02:54:00 Test Item Value Reference Range Interpretation Comments POC-GLUCOSE METER 347 mg/dL 70-110 H Notified [facility]iro [facility]ED [facility] (test code = AT [facility] 6720 [facility] 1538) [place] [address] POCT-GLUCOSE [id number] 22:43:00 Test Item Value Reference Range Interpretation Comments POC-GLUCOSE METER 139 mg/dL 70-110 H TESTED AT [place] [address] (BEAKER) (test code = PAUL Tanner [facility] 1538) [address] POCT-GLUCOSE [id number] 19:28:00 Test Item Value Reference Range Interpretation Comments POC-GLUCOSE METER 91 mg/dL 70-110 TESTED AT [place] [address] (BEAKER) (test code = PAUL Tanner [facility] [address] 1538) POCT-GLUCOSE [id number] 18:09:00 Test Item Value Reference Range Interpretation Comments POC-GLUCOSE METER 137 mg/dL 70-110 H TEST[facility] AT [place] [address] [facility] (test code = PAUL Tanner [facility] 1538) [address] BASIC METABOLIC [id number] 17:48:00 Test Item Value Reference Range Interpretation [...] NOT APPLICABLE FOR DIALYSIS PATIEN TS. POCT-GLUCOSE [id number] 12:39:00 Test Item Value Reference Range Interpretation Comments POC-GLUCOSE METER 380 mg/dL 70-110 H Notified Ciro [facility]ED [facility] (test code = AT [facility] 67[address] [place] 1538) [facility] 7[address] 0 POCT-GLUCOSE [id number] 08:22:00 Test Item Value Reference Range Interpretation Comments POC-GLUCOSE METER 266 mg/dL 70-110 H TESTED AT [place] [address] ([facility]) (test code = PAUL Tanner [facility] 1538) [address] [id number] 07:14:00 Test Item Value Reference Range Interpretation Comments BLOOD UREA NITROGEN ([facility]) (test 23 mg/dL 7-21 H code = 354) [id number] 07:14:00 Test Item Value Reference Range Interpretation Comments CREATININE ([facility]) 0.80 mg/dL 0.57-1.25 (test code = 358) EGFR ([facility]) (test 105 mL/min/1.73 ESTIM ATED GFR IS code = 1092) sq m NOT ACCURATE CREATININE CLEARANCE IN PREDICTING GLOMERULAR FILTRATION RATE . ESTIMATED GFR I S NOT APPLICABLE FOR DIALYSIS PATIEN TS. POCT-GLUCOSE [id number] 05:06:00 Test Item Value Reference Range Interpretation Comments POC-GLUCOSE METER 135 mg/dL 70-110 H TESTED AT [place] [address] ([facility]) (test code = PAUL Tanner [facility] 1538) [address] POCT-GLUCOSE [id number] 21:42:00 Test Item Value Reference Range Interpretation Comments POC-GLUCOSE METER 226 mg/dL 70-110 H TESTED AT [place] [address] ([facility]) (test code = PAUL Tanner [facility] 1538) [address] POCT-GLUCOSE [id number] 21:40:00 Test Item Value Reference Range Interpretation Comments POC-GLUCOSE METER 238 mg/dL 70-110 H TESTED AT [place] [address] ([facility]) (test code = PAUL Tanner [facility] 1538) [address] BASIC METABOLIC [id number] 17:23:00 Test Item Value Reference Range Interpretation Comments SODIUM (BEAKER) 140 meq/L 136-145 (test code = 381) POTASSIUM (BEAKER) 4.7 meq/L 3.5-5.1 Specimen slightly (test code = 379) hemolyzed CHLORIDE (BEAKER) 103 meq/L 98-107 (test code = 382) CO2 (BEAKER) (test 26 meq/L 22-29 code = 355) BLOOD UREA NITROGEN 19 mg/dL 7-21 ([facility]) (test code = 354) CREATININE ([facility]) 0.96 mg/dL 0.57-1.25 Specimen slightly (test code = 358) hemolyzed GLUCOSE RANDOM 181 mg/dL 70-105 H ([facility]) (test code = 652) CALCIUM ([facility]) 8.9 mg/dL 8.4-10.2 (test code = 697) EGFR ([facility]) (test 85 mL/min/1.73 ESTIMA MAGDALENO GFR IS code = 1092) sq m NOT ACCURATE CREATININE CLEARANCE IN PREDICTING GLOMERULAR FILTRATION RATE . ESTIMATED GFR I S NOT APPLICABLE FOR DIALYSIS PATIEN TS. SPIN/CONCENTRATION [id number] 14:16:00 Test Item Value Reference Range Interpretation Comments CONCENTRATION CHARGED ([facility]) (test Done code = 2657) POCT-GLUCOSE [id number] 13:50:00 Test Item Value Reference Range Interpretation Comments POC-GLUCOSE METER 289 mg/dL 70-110 H TESTED AT [facility] 6720 ([facility]) (test code = [place] 1538) [address] CF RESPIRATORY [id number] 09:17:00 Test Item Value Reference Range Interpretation Comments CULTURE ([facility]) PSEUDOMONAS A 4+ Pseudomo viki (test code [...] = 25) Resistant <0 or >4 CULTURE ([facility]) PSEUDOMONAS A 2+ Pseudomo viki (test code [...] or >4 4+ Normal respiratory derick presentPOCT-GLUCOSE [id number] 08:57:00 Test Item Value Reference Range Interpretation Comments POC-GLUCOSE METER 258 mg/dL 70-110 H TESTED AT [facility] 67 ([facility]) (test code = [place] 1538) [address] [id number] 06:06:00 Test Item Value Reference Range Interpretation Comments BLOOD UREA NITROGEN ([facility]) (test 15 mg/dL 7-21 code = 354) [id number] 06:06:00 Test Item Value Reference Range Interpretation Comments CREATININE ([facility]) 0.85 mg/dL 0.57-1.25 (test code = 358) EGFR ([facility]) (test 98 mL/min/1.73 ESTIMA MAGDALENO GFR IS code = 1092) sq m NOT ACCURATE CREATININE CLEARANCE IN PREDICTING GLOMERULAR FILTRATION RATE . ESTIMATED GFR I S NOT APPLICABLE FOR DIALYSIS PATIEN TS. BASIC METABOLIC [id number] 06:06:00 Test Item Value Reference Range Interpretation [...] 697) EGFR (BEAKER) (test 98 mL/min/1.73 ESTIMA AMGDALENO GFR IS code = 1092) sq m NOT ACCURATE CREATININE CLEARANCE IN PREDICTING GLOMERULAR FILTRATION RATE . ESTIMATED GFR I S NOT APPLICABLE FOR DIALYSIS PATIEN TS. HEMOGLOBIN [id number] 05:36:00 Test Item Value Reference Range Interpretation Comments HEMOGLOBIN A1C (BEAKER) (test code = 11.8 % 4.3-6.1 H 368) POCT-GLUCOSE [id number] 05:21:00 Test Item Value Reference Range Interpretation Comments POC-GLUCOSE METER 362 mg/dL 70-110 H TESTED AT [facility] 6720 (SIMI) (test code = PAUL Tanner [place] [address]198) [address] POCT-GLUCOSE [id number] 03:44:00 Test Item Value Reference Range Interpretation Comments POC-GLUCOSE METER 442 mg/dL 70-110 HH Notified Ciro Polanco MD/TESTED (SIMI) (test code = AT [facility] 6720 [facility] 1538) [facility] 7703 0 COMPREHENSIVE METABOLIC [id number] 02:03:00 Test Item Value Reference Range Interpretation [...] S NOT APPLICABLE FOR DIALYSIS PATIEN TS. [id number] 01:59:00 Test Item Value Reference Range Interpretation Comments PHOSPHORUS (BEAKER) (test code = 3.6 mg/dL 2.3-4.7 604) [id number] 01:59:00 Test Item Value Reference Range Interpretation Comments MAGNESIUM (BEAKER) (test code = 1.6 mg/dL 1.6-2.6 627) GAMMA GLUTAMYL TRANSFERASE (GGT)2018-11-09 01:59:00 Test Item Value Reference Range Interpretation Comments GAMMA GLUTAMYL TRANSFERASE (BEAKER) 40 U/L 9-64 (test code = 364) LACTIC ACID, VENOUS, WHOLE [id number] 01:57:00 Test Item Value Reference Range Interpretation Comments LACTATE BLOOD VENOUS (2) (BEAKER) 0.9 mmol/L 0.5-2.2 (test code = 2872) CBC W/PLT COUNT & AUTO [id number] 01:40:00 Test Item Value Reference Range Interpretation [...] (test code = 2801) RAD, CHEST, 2 [id number] 21:08:00Reason for exam:->Cystic FibrosisShould this be performed at the bedside?->NoFINAL REPORT Chest 2 views 11/08/2018 9:08 PM CLINICAL HISTORY: Cystic Fibrosis COMPARISON: 09/30/2018 IMPRESSION: There are pulmonary parenchymal findings in keeping with cystic fibrosis. Superimposed acute infectious/inflammatory process should be excluded clinically. Cardiomediastinal contours are within normal limits. The central pulmonary vasculature is not engorged. A right chest port is unchanged in position. There are no acute-appearing skeletal abnormalities. Signed: Yeni Bang Verified Date/Time: 11/08/2018 21:08:35 Reading Location: [facility] Reading Room AFB CULTURE + [id number] 12:42:00 Test Item Value Reference Range Interpretation Comments CULTURE (BEAKER) (test No acid-fast bacilli code = 1095) isolated in 42 days AFB SMEAR (BEAKER) No acid fast bacilli (test code = 994) seen POCT-GLUCOSE [id number] 12:08:00 Test Item Value Reference Range Interpretation Comments POC-GLUCOSE METER 140 mg/dL 70-110 H TESTED AT [facility] 6720 (BEAKER) (test code = [facility] 1538) [address] COMPREHENSIVE METABOLIC [id number] 10:03:00 Test Item Value Reference Range Interpretation [...] PATIEN TS. CBC W/PLT COUNT & AUTO [id number] 09:50:00 Test Item Value Reference Range Interpretation [...] PERCENT (BEAKER) (test code = 2801) POCT-GLUCOSE [id number] 09:50:00 Test Item Value Reference Range Interpretation Comments POC-GLUCOSE METER 271 mg/dL 70-110 H TESTED AT [place] [address] ([facility]) (test code = PAUL Tanner [facility] 1538 [address] POCT-GLUCOSE [id number] 01:59:00 Test Item Value Reference Range Interpretation Comments POC-GLUCOSE METER 377 mg/dL 70-110 H Notified R Collin STAPLETON/TESTED ([facility]) (test code = AT [place] [address] [place] 1538) [facility] 7703 0 POCT-GLUCOSE [id number] 21:37:00 Test Item Value Reference Range Interpretation Comments POC-GLUCOSE METER 92 mg/dL 70-110 TESTED AT [place] [address] ([facility]) (test code = PAUL Tanner [facility] [address] 1538) POCT-GLUCOSE [id number] 17:50:00 Test Item Value Reference Range Interpretation Comments POC-GLUCOSE METER 183 mg/dL 70-110 H TESTED AT [facility] 6720 (BEAKER) (test code = PAUL Tanner [place] 1538) [address] POCT-GLUCOSE [id number] 13:40:00 Test Item Value Reference Range Interpretation Comments POC-GLUCOSE METER 230 mg/dL 70-110 H TESTED AT [facility] 6720 (BEAKER) (test code = PAUL Tanner [place] 1538) [address] COMPREHENSIVE METABOLIC [id number] 10:59:00 Test Item Value Reference Range Interpretation [...] PATIEN TS. CBC W/PLT COUNT & AUTO [id number] 10:45:00 Test Item Value Reference Range Interpretation [...] 417) IMMATURE GRANULOCYTES-RELATIVE 0 % 0-1 PERCENT ([facility]) (test code = 2801) POCT-GLUCOSE [id number] 10:28:00 Test Item Value Reference Range Interpretation Comments POC-GLUCOSE METER 276 mg/dL 70-110 H TESTED AT [place] [address] ([facility]) (test code = PAUL Tanner [facility] 1538) [address] POCT-GLUCOSE [id number] 05:53:00 Test Item Value Reference Range Interpretation Comments POC-GLUCOSE METER 379 mg/dL 70-110 H Notified Ciro Polanco MD/TESTED ([facility]) (test code = AT [address] 1538) [facility] 7703 0 POCT-GLUCOSE [id number] 21:20:00 Test Item Value Reference Range Interpretation Comments POC-GLUCOSE METER 139 mg/dL 70-110 H TESTED AT [place] [address] ([facility]) (test code = PAUL Tanner [facility] 1538) [address] POCT-GLUCOSE [id number] 19:14:00 Test Item Value Reference Range Interpretation Comments POC-GLUCOSE METER 302 mg/dL 70-110 H TESTED AT [place] [address] ([facility]) (test code = PAUL Tanner [facility] 1538) [address] CBC W/PLT COUNT & AUTO [id number] 15:49:00 Test Item Value Reference Range Interpretation Comments WHITE BLOOD CELL COUNT ([facility]) 15.7 K/ L 3.5-10.5 H (test code = 775) RED BLOOD CELL COUNT ([facility]) 4.36 M/ L 3.93-5.22 (test code = 761) HEMOGLOBIN (BEAKER) (test code = 11.8 GM/DL 11.2-15.7 410) HEMATOCRIT (AKER) (test code = 39.1 % 34.1-44.9 411) MEAN CORPUSCULAR VOLUME (AKER) 89.7 fL 79.4-94.8 (test code = 753) MEAN CORPUSCULAR HEMOGLOBIN 27.1 pg 25.6-32.2 (AKER) (test code = 751) MEAN CORPUSCULAR HEMOGLOBIN CONC 30.2 GM/DL 32.2-35.5 L (AKER) (test code = [...] NOT APPLICABLE FOR DIALYSIS PATIEN TS. POCT-GLUCOSE [id number] 12:28:00 Test Item Value Reference Range Interpretation Comments POC-GLUCOSE METER 132 mg/dL 70-110 H TESTED AT [facility] 6720 ([facility]) (test code = [place] 1538) [address] POCT-GLUCOSE [id number] 07:46:00 Test Item Value Reference Range Interpretation Comments POC-GLUCOSE METER 405 mg/dL 70-110 HH Notified R Collin STAPLETON/TESTED ([facility]) (test code = AT [facility] 67[address] [place] 1538) [place] [address] POCT-GLUCOSE [id number] 02:08:00 Test Item Value Reference Range Interpretation Comments POC-GLUCOSE METER 112 mg/dL 70-110 H TESTED AT [facility] 6720 (BEAKER) (test code = PAUL Ciro [place] 1538) [address] POCT-GLUCOSE [id number] 21:19:00 Test Item Value Reference Range Interpretation Comments POC-GLUCOSE METER 307 mg/dL 70-110 H Notified R Collin STAPLETON/TESTED (BEAKER) (test code = AT [facility] 6720 [place] 1538) [place] [address] COMPREHENSIVE METABOLIC [id number] 21:15:00 Test Item Value Reference Range Interpretation [...] PATIEN TS. CBC W/PLT COUNT & AUTO [id number] 20:58:00 Test Item Value Reference Range Interpretation [...] 417) IMMATURE GRANULOCYTES-RELATIVE 1 % 0-1 PERCENT ([facility]) (test code = 2801) POCT-GLUCOSE [id number] 17:49:00 Test Item Value Reference Range Interpretation Comments POC-GLUCOSE METER 272 mg/dL 70-110 H TESTED AT [place] [address] ([facility]) (test code = PAUL Tanner [facility] 1538) [address] POCT-GLUCOSE [id number] 13:51:00 Test Item Value Reference Range Interpretation Comments POC-GLUCOSE METER 399 mg/dL 70-110 H TESTED AT [place] [address] ([facility]) (test code = PAUL Tanner [facility] 1538) [address] POCT-GLUCOSE [id number] 12:53:00 Test Item Value Reference Range Interpretation Comments POC-GLUCOSE METER 182 mg/dL 70-110 H TESTED AT [place] [address] ([facility]) (test code = PAUL Tanner [facility] 1538) [address] POCT-GLUCOSE [id number] 08:27:00 Test Item Value Reference Range Interpretation Comments POC-GLUCOSE METER 201 mg/dL 70-110 H TESTED AT [place] [address] ([facility]) (test code = PAUL Tanner [facility] 1538) [address] BLOOD [id number] 23:01:00 Test Item Value Reference Range Interpretation Comments CULTURE ([facility]) (test No growth in 5 days code = 1095) POCT-GLUCOSE [id number] 21:41:00 Test Item Value Reference Range Interpretation Comments POC-GLUCOSE METER 327 mg/dL 70-110 H Notified R Collin STAPLETON/TESTED ([facility]) (test code = AT [place] [address] [address] [facility]8) [facility] 7703 0 POCT-GLUCOSE [id number] 16:57:00 Test Item Value Reference Range Interpretation Comments POC-GLUCOSE METER 197 mg/dL 70-110 H TESTED AT [place] [address] ([facility]) (test code = PAUL Tanner [facility] 1538) [address] POCT-GLUCOSE [id number] 13:01:00 Test Item Value Reference Range Interpretation Comments POC-GLUCOSE METER 311 mg/dL 70-110 H Notified R Collin STAPLETON/TESTED ([facility]) (test code = AT [place] [address] [place] [address] [facility] 7703 0 POCT-GLUCOSE [id number] 12:11:00 Test Item Value Reference Range Interpretation Comments POC-GLUCOSE METER 54 mg/dL 70-110 L Notified Ciro Polanco MD/TESTED AT (BEAKER) (test code = [facility] 67[address] [place] 1538) [facility] 7703 0 POCT-GLUCOSE [id number] 08:52:00 Test Item Value Reference Range Interpretation Comments POC-GLUCOSE METER 165 mg/dL 70-110 H TESTED AT [place] [address] (BEAKER) (test code = PAUL Tanner [place] 581198) [address] CBC W/PLT COUNT & AUTO [id number] 06:47:00 Test Item Value Reference Range Interpretation [...] NOT APPLICABLE FOR DIALYSIS PATIEN TS. POCT-GLUCOSE [id number] 23:13:00 Test Item Value Reference Range Interpretation Comments POC-GLUCOSE METER 210 mg/dL 70-110 H TESTED AT [facility] 6720 ([facility]) (test code = [place] 1538) [address] BLOOD [id number] 23:01:00 Test Item Value Reference Range Interpretation Comments CULTURE (BEAKER) (test No growth in 5 days code = 1095) POCT-GLUCOSE [id number] 18:25:00 Test Item Value Reference Range Interpretation Comments POC-GLUCOSE METER 186 mg/dL 70-110 H TESTED AT [facility] 6720 [facility] (test code = [place] 1538) [address] FUNGUS CULTURE + [id number] 14:17:00 Test Item Value Reference Range Interpretation Comments CULTURE ([facility]) A 1+ [place] (test code = 1095) lisa frank FUNGUS SMEAR No fungi seen ([facility]) (test code = 1406) POCT-GLUCOSE [id number] 12:24:00 Test Item Value Reference Range Interpretation Comments POC-GLUCOSE METER 183 mg/dL 70-110 H TESTED AT [facility] 67 ([facility]) (test code = PAUL Tanner [facility] 1538) [address] POCT-GLUCOSE [id number] 09:13:00 Test Item Value Reference Range Interpretation Comments POC-GLUCOSE METER 81 mg/dL 70-110 TESTED AT [place] [address] ([facility]) (test code = [facility] Ciro [facility] [address] 1538) SPUTUM CULTURE + GRAM [id number] 09:05:00 Test Item Value Reference Range Interpretation Comments CULTURE ([facility]) PSEUDOMONAS A 1+ Pseudomo viki (test code [...] = 25) Resistant <0 or >4 CULTURE ([facility]) PSEUDOMONAS A 1+ Pseudomo viki (test code [...] or >4 1+ Normal respiratory derick presentPOCT-GLUCOSE [id number] 06:29:00 Test Item Value Reference Range Interpretation Comments POC-GLUCOSE METER 291 mg/dL 70-110 H TESTED AT [facility] [id number] ([facility]) (test code = [place] 1538) [id number] COMPREHENSIVE METABOLIC [id number] 06:00:00 Test Item Value Reference Range Interpretation Comments TOTAL PROTEIN 6.2 gm/dL 6.0-8.3 ([facility]) (test code = 770) ALBUMIN ([facility]) 3.0 g/dL 3.5-5.0 L (test code = 1145) ALKALINE PHOSPHATASE 93 U/L 40-150 ([facility]) (test code = 346) BILIRUBIN TOTAL 0.1 mg/dL 0.2-1.2 L ([facility]) (test code = 377) SODIUM (BEAKER) (test 136 meq/L 136-145 code = 381) POTASSIUM (AKER) 4.2 meq/L 3.5-5.1 (test code = 379) [...] PATIEN TS. CBC W/PLT COUNT & AUTO [id number] 05:35:00 Test Item Value Reference Range Interpretation [...] PERCENT (BEAKER) (test code = 2801) POCT-GLUCOSE [id number] 05:34:00 Test Item Value Reference Range Interpretation Comments POC-GLUCOSE METER 207 mg/dL 70-110 H TESTED AT [place] [address] ([facility]) (test code = PAUL Tanner [facility] 1538) [address] POCT-GLUCOSE [id number] 21:35:00 Test Item Value Reference Range Interpretation Comments POC-GLUCOSE METER 500 mg/dL 70-110 HH Notified R Collin STAPLETON/TESTED ([facility]) (test code = [place] [address] [place] [address] [facility] [id number] POCT-GLUCOSE [id number] 18:12:00 Test Item Value Reference Range Interpretation Comments POC-GLUCOSE METER 433 mg/dL 70-110 HH TESTED AT [place] [address] ([facility]) (test code = PAUL Tanner [facility] 1538) [address] POCT-GLUCOSE [id number] 14:05:00 Test Item Value Reference Range Interpretation Comments POC-GLUCOSE METER 298 mg/dL 70-110 H TESTED AT [place] [address] ([facility]) (test code = PAUL Tanner [facility] 1538) [address] POCT-GLUCOSE [id number] 08:34:00 Test Item Value Reference Range Interpretation Comments POC-GLUCOSE METER 171 mg/dL 70-110 H [facility] [facility] (BEAKER) (test code = [place] 1538) [address] COMPREHENSIVE METABOLIC [id number] 05:54:00 Test Item Value Reference Range Interpretation [...] S NOT APPLICABLE FOR DIALYSIS PATIEN TS. [id number] 05:41:00 Test Item Value Reference Range Interpretation Comments POTASSIUM (BEAKER) (test code = 4.5 meq/L 3.5-5.1 379) POCT-GLUCOSE [id number] 05:24:00 Test Item Value Reference Range Interpretation Comments POC-GLUCOSE METER 415 mg/dL 70-110 Notified R N MD/TESTED (BEAKER) (test code = AT [facility] 6720 [facility] 8997) [place] 7[address] 0 CBC W/PLT COUNT & AUTO [id number] 05:20:00 Test Item Value Reference Range Interpretation [...] 0-1 PERCENT (AKER) (test code = 2801) LACTIC ACID, VENOUS, WHOLE [id number] 05:18:00 Test Item Value Reference Range Interpretation Comments LACTATE BLOOD VENOUS (2) (AKER) 2.1 mmol/L 0.5-2.2 (test code = 2872) [id number] 05:15:00 Test Item Value Reference Range Interpretation Comments POTASSIUM (AKER) (test code = 4.5 meq/L 3.5-5.1 379) POCT-GLUCOSE [id number] 02:55:00 Test Item Value Reference Range Interpretation Comments POC-GLUCOSE METER 464 mg/dL 70-110 HH Notified Ciro Polanco MD/TESTED ([facility]) (test code = AT [place] [address]) [facility] 770 0 POCT-GLUCOSE [id number] 21:44:00 Test Item Value Reference Range Interpretation Comments POC-GLUCOSE METER 324 mg/dL 70-110 H Notified Ciro Polanco MD/TESTED ([facility]) (test code = AT [place] [address]) [facility] 770 0 POCT-GLUCOSE [id number] 18:33:00 Test Item Value Reference Range Interpretation Comments POC-GLUCOSE METER 272 mg/dL 70-110 H TESTED AT [place] [address] ([facility]) (test code = PAUL Tanner [place] [address]) [address] POCT-GLUCOSE [id number] 17:27:00 Test Item Value Reference Range Interpretation Comments POC-GLUCOSE METER 354 mg/dL 70-110 H Notified Ciro Polanco MD/TESTED ([facility]) (test code = AT [place] [address]) [facility] 7703 0 POCT-GLUCOSE [id number] 12:14:00 Test Item Value Reference Range Interpretation Comments POC-GLUCOSE METER 178 mg/dL 70-110 H TESTED AT [place] [address] ([facility]) (test code = PAUL Tanner [place] [address]) [address] POCT-GLUCOSE [id number] 08:20:00 Test Item Value Reference Range Interpretation Comments POC-GLUCOSE METER 211 mg/dL 70-110 H TESTED AT [facility] 6720 ([facility]) (test code = PAUL Tanner [facility] 1538) [address] COMPREHENSIVE METABOLIC [id number] 06:42:00 Test Item Value Reference Range Interpretation [...] NOT APPLICABLE FOR DIALYSIS PATIEN TS. POCT-GLUCOSE [id number] 06:39:00 Test Item Value Reference Range Interpretation Comments POC-GLUCOSE METER 224 mg/dL 70-110 H TESTED AT [facility] 6720 [facility] (test code = [place] 153) [address] CBC W/PLT COUNT & AUTO [id number] 06:31:00 Test Item Value Reference Range Interpretation [...] (test code = 416) BASOPHILS ABSOLUTE COUNT ([facility]) 0.02 K/ L 0.01-0.08 (test code = 417) IMMATURE GRANULOCYTES-RELATIVE 1 % 0-1 PERCENT ([facility]) (test code = 2801) POCT-GLUCOSE [id number] 02:22:00 Test Item Value Reference Range Interpretation Comments POC-GLUCOSE METER 354 mg/dL 70-110 H TESTED AT [place] [address] ([facility]) (test code = PAUL Tanner [place] 1538) [address] POCT-GLUCOSE [id number] 22:38:00 Test Item Value Reference Range Interpretation Comments POC-GLUCOSE METER 224 mg/dL 70-110 H TESTED AT [place] [address] ([facility]) (test code = PAUL Tanner [place] 1538) [address] POCT-GLUCOSE [id number] 21:24:00 Test Item Value Reference Range Interpretation Comments POC-GLUCOSE METER 349 mg/dL 70-110 H TESTED AT [place] [address] ([facility]) (test code = NAOMITAYO Ciro [place] 1538) [address] POCT-GLUCOSE [id number] 18:45:00 Test Item Value Reference Range Interpretation Comments POC-GLUCOSE METER 264 mg/dL 70-110 H TESTED AT [place] [address] ([facility]) (test code = PAUL Tanner [place] 1538) [address] POCT-GLUCOSE [id number] 15:48:00 Test Item Value Reference Range Interpretation Comments POC-GLUCOSE METER 191 mg/dL 70-110 H TESTED AT [place] [address] ([facility]) (test code = PAUL Tanner [place] 1538) [address] POCT-GLUCOSE [id number] 15:17:00 Test Item Value Reference Range Interpretation Comments POC-GLUCOSE METER 111 mg/dL 70-110 H TESTED AT [place] [address] ([facility]) (test code = PAUL Ciro [place] 1538) [address] POCT-GLUCOSE [id number] 11:13:00 Test Item Value Reference Range Interpretation Comments POC-GLUCOSE METER 297 mg/dL 70-110 H TESTED AT [place] [address] ([facility]) (test code = PAUL Ciro [place] 1538) [address] POCT-GLUCOSE [id number] 08:10:00 Test Item Value Reference Range Interpretation Comments POC-GLUCOSE METER 221 mg/dL 70-110 H TESTED AT [facility] 6720 (BEAKER) (test code = [place] 1538) [address] [id number] 05:11:00 Test Item Value Reference Range Interpretation Comments PHOSPHORUS (BEAKER) (test code = 4.0 mg/dL 2.3-4.7 604) [id number] 05:11:00 Test Item Value Reference Range Interpretation Comments MAGNESIUM (BEAKER) (test code = 1.6 mg/dL 1.6-2.6 627) COMPREHENSIVE METABOLIC [id number] 05:11:00 Test Item Value Reference Range Interpretation [...] PATIEN TS. CBC W/PLT COUNT & AUTO [id number] 04:57:00 Test Item Value Reference Range Interpretation [...] (test code = 416) BASOPHILS ABSOLUTE COUNT ([facility]) 0.01 K/ L 0.01-0.08 (test code = 417) IMMATURE GRANULOCYTES-RELATIVE 1 % 0-1 PERCENT (MERA) (test code = 2801) [id number] 02:54:00 Test Item Value Reference Range Interpretation Comments PROCALCITONIN (SIMI) (test code 0.07 ng/mL <0.05 H = 3036) SEPSIS RISK (ng/mL)Low: 0.05-0.50Intermediate: 0.51-2.00High: >=2.01POCT- GLUCOSE [id number] 01:59:00 Test Item Value Reference Range Interpretation Comments POC-GLUCOSE METER 265 mg/dL 70-110 H TESTED AT [place] [address] ([facility]) (test code = [facility] Tanner [facility] 1538) [address] POCT-GLUCOSE [id number] 21:36:00 Test Item Value Reference Range Interpretation Comments POC-GLUCOSE METER 256 mg/dL 70-110 H TESTED AT [place] [address] ([facility]) (test code = [facility] 1538) [address] CT, BRAIN, WITHOUT [id number] 20:55:00FINAL REPORT CT, BRAIN, WITHOUT CONTRAST CLINICAL [...] MDReport Verified Date/Time: 09/30/2018 20:55:31 Reading Location: [facility] C013V Neuro Reading Room COMPREHENSIVE METABOLIC PANEL 2018-09-30 20:21:00 Test Item Value Reference Range Interpretation Comments TOTAL PROTEIN 6.6 gm/dL 6.0-8.3 (SIMI) (test code = 770) ALBUMIN (BEAKER) 3.0 [...] APPLICABLE FOR DIALYSIS PATIEN TS. HCG, QUANTITATIVE, [id number] 18:38:00 Test Item Value Reference Range Interpretation Comments GONADOTROPIN, CHORIONIC (HCG) QUANT < mIU/mL 0-10 (BEAKER) (test code = 649) Non- Females: <10 mIU/mL Females: Gestation Age Reference Range(mIU/mL) 0.2-1 Week 5-50 1-2 Weeks 50-500 2-3 Weeks 100-5,000 3-4 Weeks 500-10,000 4-5 Weeks 1,000-50,000 5-6 Weeks 10,000-100,000 6-8 Weeks 15,000- 200,000 2-3 Months 10,000-100,000U/S, RENAL, [id number] 17:21:00Reason for exam:->Hypertension, AKIShould this be performed at the bedside?->Yes FINAL REPORT Renal ultrasound Clinical History: Hypertension, acute [...] measuring 9.3 x 5.3 x 4.2 cm withcortical thickness of 1.2 cm. Cortical echogenicity is within normal limits. There is no evidence for solid renal mass, hydronephrosis, or shadowing calculi. The main renal artery and vein are patent. The urinary bladder is grossly unremarkable. Impression: Unremarkable renal ultrasound examination. Signed: Bryan Davison MDReport Verified Date/Time: 09/30/2018 17:21:03 Reading Location: [address] Ultrasound Reading Room RAD, CHEST, 1 VIEW, NON [id number] 17:18:00Reason for exam:->assess port placementShould this be performed at the bedside?->YesFINAL REPORT History: Cystic fibrosis. Port placement. FINDINGS: Chest, two view s Compared with September 29, 2018, the heart and mediastinum are stable. Diffuse lung injury and scarring consistent with the patient's history of cystic fibrosis are noted and appear unchanged. No new areas of focal consolidation. No visible effusions or pneumothorax. The heart and mediastinum are stable. Right chest port position is unchanged. As before, the port lies in expected position with its tip near the cavoatrial junction. Bones are unremarkable. IMPRESSION: 1. Chronic lung abnormality consistent with patient's history of cystic fibrosis, unchanged. 2. Right chest port appears in expected position. No pneumothorax. Signed: Flip Singer MDReport Verified Date/Time: 09/30/2018 17:18:52 Reading Location: [facility] Diagnostic Imaging Reading Room - [facility] F1 1120 POCT- GLUCOSE [id number] 17:15:00 Test Item Value Reference Range Interpretation Comments POC-GLUCOSE METER > mg/dL 70-110 HH OUTSIDE ME ASURING (BEAKER) (test code RANGETES MAGDALENO AT [facility] 6720 = 1538) [facility] [address] U/S, ABDOMINAL, [id number] 15:35:00Abdomen limited area? Add comment if clarification is needed.->Liverhypoglycemia Reason for exam:->looking for cirrhosis.FINAL REPORT Right Upper Quadrant Ultrasound Clinical Diagnosis: Abdominal distention cystic fibrosis Comparison: March 2018 Technique: Multiple transaxial and longitudinal images were obtained through the right upper quadrant with real time ultrasonography. Five mHz transducer was utilized. 64 images were submitted for interpretation. Report:Liver: The liver measures 15.3 cm in the right midaxillary line. There are no focal masses. The echogenicity is heterogeneous and increased.Gallbladder: The transverse diameter is 0.7 cm. The wall measures three mm. There are no shadowing stones visualized. The gallbladder is contracted Biliary tree: There is no evidence of intra or extra hepatic biliary ductal dilatation. The common bile duct measures five mm.Portal vein: The portal veinmeasures 10 mm. Ascites: NegativePleural Effusion: NegativeRight kidney: The right kidney measures 10.4 cm in length without evidence of hydronephrosis.Aorta and IVC: Midline abdominal structures and not well visualized. Maximum transverse dimension of the aorta is 1.9 cm proximally Impression:Contracted gallbladder.As compared to the prior study the echogenicity within the liver has minimally increased suggesting fatty infiltration. Signed: Sravanthi Flores MDReport Verified Date/Time: 09/30/2018 15:35:23 Reading Location: [facility] P006J Ultrasound Reading Room CBC W/PLT COUNT & AUTO [id number] 15:30:00 Test Item Value Reference Range Interpretation Comments WHITE BLOOD CELL COUNT (KIAKER) 18.4 K/ L 3.5-10.5 H (test code [...] (BEAKER) (test code = 2801) COMPREHENSIVE METABOLIC [id number] 14:42:00 Test Item Value Reference Range Interpretation [...] PATIEN TS. CBC W/PLT COUNT & AUTO [id number] 14:27:00 Test Item Value Reference Range Interpretation [...] PERCENT (BEAKER) (test code = 2801) POCT-GLUCOSE [id number] 13:56:00 Test Item Value Reference Range Interpretation Comments POC-GLUCOSE METER 406 mg/dL 70-110 HH TESTED AT [place] [address] ([facility]) (test code = PAUL Tanner [place] 1538) [address] POCT-GLUCOSE [id number] 12:35:00 Test Item Value Reference Range Interpretation Comments POC-GLUCOSE METER 122 mg/dL 70-110 H TESTED AT [place] [address] ([facility]) (test code = PAUL Tanner [facility] 1538) [address] POCT-GLUCOSE [id number] 12:04:00 Test Item Value Reference Range Interpretation Comments POC-GLUCOSE METER 67 mg/dL 70-110 L Will Repea t Test/TESTED ([facility]) (test code = AT [address] 1538) [facility] 7703 0 POCT-GLUCOSE [id number] 11:01:00 Test Item Value Reference Range Interpretation Comments POC-GLUCOSE METER 196 mg/dL 70-110 H TESTED AT [place] [address] ([facility]) (test code = PAUL Tanner [facility] 1538) [address] POCT-GLUCOSE [id number] 10:15:00 Test Item Value Reference Range Interpretation Comments POC-GLUCOSE METER 210 mg/dL 70-110 H TESTED AT [place] [address] ([facility]) (test code = PAUL Tanner [facility] 1538) [address] POCT-GLUCOSE [id number] 09:49:00 Test Item Value Reference Range Interpretation Comments POC-GLUCOSE METER 137 mg/dL 70-110 H TESTED AT [place] [address] ([facility]) (test code = PAUL Tanner [facility] 1538) [address] POCT-GLUCOSE [id number] 08:42:00 Test Item Value Reference Range Interpretation Comments POC-GLUCOSE METER 22 mg/dL 70-110 LL Will Repea t Test/TESTED ([facility]) (test code = AT [address] 1538) [facility] 7703 0 POCT-GLUCOSE [id number] 06:34:00 Test Item Value Reference Range Interpretation Comments POC-GLUCOSE METER 123 mg/dL 70-110 H TESTED AT [place] [address] ([facility]) (test code = PAUL Tanner [facility] 1538) [address] POCT-GLUCOSE [id number] 05:17:00 Test Item Value Reference Range Interpretation Comments POC-GLUCOSE METER 257 mg/dL 70-110 H TESTED AT [place] [address] ([facility]) (test code = PAUL Tanner [place] 1538) [address] POCT-GLUCOSE [id number] 04:33:00 Test Item Value Reference Range Interpretation Comments POC-GLUCOSE METER 197 mg/dL 70-110 H TESTED AT [place] [address] ([facility]) (test code = PAUL Tanner [place] 1538) [address] POCT-GLUCOSE [id number] 04:04:00 Test Item Value Reference Range Interpretation Comments POC-GLUCOSE METER 48 mg/dL 70-110 L TESTED AT [place] [address] ([facility]) (test code = PAUL Tanner [facility] [address] 1538) POCT-GLUCOSE [id number] 03:44:00 Test Item Value Reference Range Interpretation Comments POC-GLUCOSE METER 62 mg/dL 70-110 L TESTED AT [place] [address] ([facility]) (test code = PAUL Tanner [facility] [address] 1538) POCT-GLUCOSE [id number] 02:42:00 Test Item Value Reference Range Interpretation Comments POC-GLUCOSE METER 43 mg/dL 70-110 L Notified Ciro Polanco MD/TESTED AT [facility]) (test code = [address] 1538) [place] [address] POCT-GLUCOSE [id number] 02:10:00 Test Item Value Reference Range Interpretation Comments POC-GLUCOSE METER 73 mg/dL 70-110 TESTED AT [place] [address] ([facility]) (test code = PAUL Tanner [facility] [address] 1538) POCT-GLUCOSE [id number] 00:59:00 Test Item Value Reference Range Interpretation Comments POC-GLUCOSE METER 222 mg/dL 70-110 H TESTED AT [place] [address] ([facility]) (test code = PAUL Tanner [place] 1538) [address] POCT-GLUCOSE [id number] 23:57:00 Test Item Value Reference Range Interpretation Comments POC-GLUCOSE METER 314 mg/dL 70-110 H TESTED AT [place] [address] ([facility]) (test code = PAUL Tanner [place] 1538) [address] POCT-GLUCOSE [id number] 22:42:00 Test Item Value Reference Range Interpretation Comments POC-GLUCOSE METER 197 mg/dL 70-110 H TESTED AT [place] [address] ([facility]) (test code = PAUL Tanner [place] [address]) [address] POCT-GLUCOSE [id number] 21:38:00 Test Item Value Reference Range Interpretation Comments POC-GLUCOSE METER 153 mg/dL 70-110 H TESTED AT [place] [address] ([facility]) (test code = PAUL Tanner [place] [address]198) [address] POCT-GLUCOSE [id number] 20:44:00 Test Item Value Reference Range Interpretation Comments POC-GLUCOSE METER 164 mg/dL 70-110 H TESTED AT [place] [address] ([facility]) (test code = PAUL Tanner [place] [address]) [address] POCT-GLUCOSE [id number] 19:15:00 Test Item Value Reference Range Interpretation Comments POC-GLUCOSE METER 186 mg/dL 70-110 H TESTED AT [place] [address] ([facility]) (test code = PAUL Tanner [place] [address]) [address] POCT-GLUCOSE [id number] 18:06:00 Test Item Value Reference Range Interpretation Comments POC-GLUCOSE METER 215 mg/dL 70-110 H TESTED AT [place] [address] ([facility]) (test code = PAUL Tanner [place] [address]) [address] POCT-GLUCOSE [id number] 17:31:00 Test Item Value Reference Range Interpretation Comments POC-GLUCOSE METER 116 mg/dL 70-110 H TESTED AT [place] [address] ([facility]) (test code = PAUL Tanner [place] [address]) [address] POCT-GLUCOSE [id number] 15:46:00 Test Item Value Reference Range Interpretation Comments POC-GLUCOSE METER 311 mg/dL 70-110 H Notified Ciro Polanco MD/TESTED ([facility]) (test code = AT [place] [address]) [facility] 7703 0 POCT-GLUCOSE [id number] 14:37:00 Test Item Value Reference Range Interpretation Comments POC-GLUCOSE METER 306 mg/dL 70-110 H Notified Ciro Polanco MD/TESTED ([facility]) (test code = AT [place] [address]) [facility] 7703 0 POCT-GLUCOSE [id number] 14:07:00 Test Item Value Reference Range Interpretation Comments POC-GLUCOSE METER 326 mg/dL 70-110 H Patient on insulin ([facility]) (test code = Drip/T ESTED AT [place] [address]) 6720 [facility] [address] POCT-GLUCOSE [id number] 12:52:00 Test Item Value Reference Range Interpretation Comments POC-GLUCOSE METER 360 mg/dL 70-110 H Patient on insulin (SIMI) (test code = Drip/T ESTED AT [place] [address]) 6720 [facility] [address] POCT-GLUCOSE [id number] 11:24:00 Test Item Value Reference Range Interpretation Comments POC-GLUCOSE METER 366 mg/dL 70-110 H Notified R Collin STAPLETON/TESTED ([facility]) (test code = AT [place] [address]) [facility] 7703 0 RAD, CHEST, 1 VIEW, NON [id number] 10:40:00Reason for exam:->pulm cystic fibrosisShould this be performed at the bedside?->YesFINAL REPORT Chest one view. Clinical history: pulm cystic fibrosis Comparison: September 22, 2018 Discussion: A frontal chest is provided. Cardiomediastinal contours are unchanged.Right Port-A-Cath is in stable position. Interstitial opacities and bronchiectasis with upper lung zone predominance is in keeping with history of cystic fibrosis. No definite new consolidation is identified. There is no evidence of pulmonary edema, pneumothorax, or significant effusion. Osseous structures are intact. Signed: Everardo Castellanos Verified Date/Time: 09/29/2018 10:40:52 Reading Location:[facility] Radiology Reading Room POCT-GLUCOSE [id number] 10:18:00 Test Item Value Reference Range Interpretation Comments POC-GLUCOSE METER 299 mg/dL 70-110 H TESTED AT [place] [address] ([facility]) (test code = PAUL Tanner [place] [address]) [address] POCT-GLUCOSE [id number] 09:42:00 Test Item Value Reference Range Interpretation Comments POC-GLUCOSE METER 146 mg/dL 70-110 H TESTED AT [place] [address] ([facility]) (test code = PAUL Tanner [place] [address]198) [address] POCT-GLUCOSE [id number] 09:01:00 Test Item Value Reference Range Interpretation Comments POC-GLUCOSE METER 97 mg/dL 70-110 TESTED AT [place] [address] ([facility]) (test code = PAUL Tanner [facility] [address] 1538) POCT-GLUCOSE [id number] 07:56:00 Test Item Value Reference Range Interpretation Comments POC-GLUCOSE METER 144 mg/dL 70-110 H TESTED AT [place] [address] ([facility]) (test code = PAUL Tanner [facility] 1538) [address] POCT-GLUCOSE [id number] 06:34:00 Test Item Value Reference Range Interpretation Comments POC-GLUCOSE METER 231 mg/dL 70-110 H TESTED AT [place] [address] ([facility]) (test code = PAUL Tanner [facility] 1538) 28963 POCT-GLUCOSE [id number] 05:35:00 Test Item Value Reference Range Interpretation Comments POC-GLUCOSE METER 330 mg/dL 70-110 H Notified Ciro Polanco MD/TESTED ([facility]) (test code = AT [address] 1538) [facility] 7703 0 POCT-GLUCOSE [id number] 04:31:00 Test Item Value Reference Range Interpretation Comments POC-GLUCOSE METER 291 mg/dL 70-110 H TESTED AT [place] [address] ([facility]) (test code = [facility] Ciro [facility] 1538) [address] POCT-GLUCOSE [id number] 04:00:00 Test Item Value Reference Range Interpretation Comments POC-GLUCOSE METER 246 mg/dL 70-110 H TESTED AT [place] [address] ([facility]) (test code = [facility] Ciro [facility] 1538) [address] TSH/FREE T4 IF [id number] 03:14:00 Test Item Value Reference Range Interpretation Comments THYROID STIMULATING HORMONE 1.25 uIU/mL 0.35-4.94 ([facility]) (test code = 772) COMPREHENSIVE METABOLIC [id number] 02:54:00 Test Item Value Reference Range Interpretation Comments TOTAL PROTEIN 6.5 gm/dL 6.0-8.3 ([facility]) (test code = 770) ALBUMIN ([facility]) 2.9 g/dL 3.5-5.0 L (test code = 1145) ALKALINE PHOSPHATASE 99 U/L 40-150 ([facility]) (test code = 346) BILIRUBIN TOTAL 0.1 mg/dL 0.2-1.2 L ([facility]) (test code = 377) SODIUM (BEAKER) (test [...] PATIEN TS. CBC W/PLT COUNT & AUTO [id number] 02:37:00 Test Item Value Reference Range Interpretation [...] 0-1 H PERCENT (BEAKER) (test code = 2800) POCT-GLUCOSE [id number] 02:16:00 Test Item Value Reference Range Interpretation Comments POC-GLUCOSE METER 267 mg/dL 70-110 H TESTED AT [place] [address] ([facility]) (test code = PA[place] 1538) [address] POCT-GLUCOSE [id number] 01:05:00 Test Item Value Reference Range Interpretation Comments POC-GLUCOSE METER 350 mg/dL 70-110 H TESTED AT [place] [address] ([facility]) (test code = [place] 1538) [address] POCT-GLUCOSE [id number] 00:18:00 Test Item Value Reference Range Interpretation Comments POC-GLUCOSE METER 463 mg/dL 70-110 HH TESTED AT [place] [address] ([facility]) (test code = PAUL [place] 1538) [address] BASIC METABOLIC [id number] 23:00:00 Test Item Value Reference Range Interpretation [...] NOT APPLICABLE FOR DIALYSIS PATIEN TS. POCT-GLUCOSE [id number] 22:53:00 Test Item Value Reference Range Interpretation Comments POC-GLUCOSE METER > mg/dL 70-110 HH OUTSIDE ME ASURING (BEAKER) (test code RANGENot domenica RUVALCABA MD/TESTED = 1538) AT [address] [id number] POCT-GLUCOSE [id number] 20:20:00 Test Item Value Reference Range Interpretation Comments POC-GLUCOSE METER > mg/dL 70-110 HH OUTSIDE ME ASURING (BEAKER) (test code RANGENot domenica RUVALCABA MD/TESTED = 1538) AT [address] [address] 0 POCT-GLUCOSE [id number] 18:29:00 Test Item Value Reference Range Interpretation Comments POC-GLUCOSE METER 378 mg/dL 70-110 H TESTED AT [place] [address] [facility] (test code = PAUL Tanner [facility] 1538) [id number] POCT-GLUCOSE [id number] 16:28:00 Test Item Value Reference Range Interpretation Comments POC-GLUCOSE METER 376 mg/dL 70-110 H TESTED AT [place] [address] [facility] (test code = PAUL Tanner [facility] 8) [address] POCT-GLUCOSE [id number] 16:06:00 Test Item Value Reference Range Interpretation Comments POC-GLUCOSE METER 393 mg/dL 70-110 H TESTED AT [place] [address] ([facility]) (test code = PAUL MED[place] 1538) [address] POCT-GLUCOSE [id number] 15:50:00 Test Item Value Reference Range Interpretation Comments POC-GLUCOSE METER 355 mg/dL 70-110 H Notified R Collin or ([facility]) (test code = Patien t refused repeat 1537) test/TESTED AT [place] [address] [place] [address] POCT-GLUCOSE [id number] 15:21:00 Test Item Value Reference Range Interpretation Comments POC-GLUCOSE METER 265 mg/dL 70-110 H TESTED AT [place] [address] ([facility]) (test code = PAUL Tanner [facility] 1538) [address] POCT-GLUCOSE [id number] 14:41:00 Test Item Value Reference Range Interpretation Comments POC-GLUCOSE METER 225 mg/dL 70-110 H TESTED AT [place] [address] ([facility]) (test code = PAUL Tanner 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 IVs were placed in both arms. Contrast was injected into each the IV. The relatively small size the IVs limited amount of contrast injected. However, left axillary vein is patent. The left subclavian vein is [...] right common femoral vein was then accessed percutaneously and a guidewire and catheter were advanced into the superior vena cava and, subsequently up into a branch likely the thyrocervical vein. 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 Left subclavian vein appearsgrossly patent patent and the superior vena cava is also patent. Attempts at catheterizing the left innominate vein were unsuccessful as it is occluded. Catheter was then advanced into the right innominate vein and subsequently through the right subclavian vein stenosis to the axillary vein. 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 Eight and then 10 mm in diameter balloon catheters [...] subclavian vein as described. Signed: Darrin Hart MDReportVerified Date/Time: 09/28/2018 14:17:02 Reading Location: [place] [address] Angio Body Reading Room POCT-GLUCOSE [id number] 14:15:00 Test Item Value Reference Range Interpretation Comments POC-GLUCOSE METER 230 mg/dL 70-110 H TESTED AT [place] [address] ([facility]) (test code = PAUL Tanner [facility] 1538) [address] POCT-GLUCOSE [id number] 13:37:00 Test Item Value Reference Range Interpretation Comments POC-GLUCOSE METER 238 mg/dL 70-110 H TESTED AT [place] [address] ([email or web address]) (test code = PAUL Tanner [facility] 1538) [address] POCT-GLUCOSE [id number] 13:37:00 Test Item Value Reference Range Interpretation Comments POC-GLUCOSE METER 294 mg/dL 70-110 H TESTED AT [place] [address] ([employer]) (test code = PAUL Tanner [facility] 1538) [address] POCT-GLUCOSE [id number] 12:55:00 Test Item Value Reference Range Interpretation Comments POC-GLUCOSE METER 71 mg/dL 70-110 TESTED AT [facility] 6720 (BEAKER) (test code = [place] [address] 1538) POCT-GLUCOSE [id number] 12:01:00 Test Item Value Reference Range Interpretation Comments POC-GLUCOSE METER 148 mg/dL 70-110 H TESTED AT [facility] 6720 (BEAKER) (test code = PAUL [place] 1538) [address] CBC W/PLT COUNT & AUTO [id number] 11:50:00 Test Item Value Reference Range Interpretation [...] 3438) Received comment: User comments: Slide comments:POCT-GLUCOSE [id number] 11:46:00 Test Item Value Reference Range Interpretation Comments POC-GLUCOSE METER 27 mg/dL 70-110 LL TESTED AT [facility] 6720 (BEAKER) (test code = PAUL Tanner [facility] [address] 1538) POCT-GLUCOSE [id number] 11:46:00 Test Item Value Reference Range Interpretation Comments POC-GLUCOSE METER 106 mg/dL 70-110 TESTED AT [facility] 6720 (BEAKER) (test code = PAUL Tanner [facility] 1538) 268[address] POCT-GLUCOSE [id number] 11:46:00 Test Item Value Reference Range Interpretation Comments POC-GLUCOSE METER 20 mg/dL 70-110 LL TESTED AT [facility] 6720 (BEAKER) (test code = PAUL Tanner [facility] [address] 1538) POCT-GLUCOSE [id number] 11:46:00 Test Item Value Reference Range Interpretation Comments POC-GLUCOSE METER 63 mg/dL 70-110 L TESTED AT [facility] 6720 (BEAKER) (test code = PAUL Tanner [facility] [address] 1538) CF RESPIRATORY [id number] 11:03:00 Test Item Value Reference Range Interpretation [...] 25) Resistant <0 or >4 CULTURE (AKER) A 4+ Pseudomo viki (test code = 1095) aeruginos a 1+ Normal respiratory derick presentPOCT-GLUCOSE [id number] 09:33:00 Test Item Value Reference Range Interpretation Comments POC-GLUCOSE METER 29 mg/dL 70-110 LL TESTED AT [place] [address] ([facility]) (test code = [facility] [address] 1538) POCT-GLUCOSE [id number] 08:48:00 Test Item Value Reference Range Interpretation Comments POC-GLUCOSE METER 134 mg/dL 70-110 H TESTED AT [place] [address] ([facility]) (test code = [facility] 1538) [address] COMPREHENSIVE METABOLIC [id number] 06:31:00 Test Item Value Reference Range Interpretation Comments TOTAL PROTEIN 6.4 gm/dL 6.0-8.3 ([facility]) (test code = 770) ALBUMIN ([facility]) 2.8 g/dL 3.5-5.0 L (test code = 1145) ALKALINE PHOSPHATASE 99 U/L 40-150 ([facility]) (test code = 346) BILIRUBIN TOTAL 0.1 [...] S NOT APPLICABLE FOR DIALYSIS PATIEN TS. [id number] 06:28:00 Test Item Value Reference Range Interpretation Comments PROTIME (BEAKER) (test code = 13.2 seconds 11.7-14.7 759) INR (BEAKER) (test code = 370) 1.0 <=5.9 PARTIAL THROMBOPLASTIN TIME 23.8 seconds 22.5-36.0 (BEAKER) (test code = 760) RECOMMENDED COUMADIN/WARFARIN INR THERAPY RANGESSTANDARD DOSE: 2.0 - 3.0 Includes: PROPHYLAXIS for venous thrombosis, systemic embolization; TREATMENT for venous thrombosis and/or pulmonary embolus.HIGH RISK: Target INR is 2.5-3.5 for patients with mechanical heart valves.POCT-GLUCOSE [id number] 06:01:00 Test Item Value Reference Range Interpretation Comments POC-GLUCOSE METER 102 mg/dL 70-110 TESTED AT [facility] 6720 ([facility]) (test code = PA[place] 1538) [address] POCT-GLUCOSE [id number] 06:00:00 Test Item Value Reference Range Interpretation Comments POC-GLUCOSE METER 65 mg/dL 70-110 L TESTED AT [place] [address] ([facility]) (test code = [facility] [address] 1538) POCT-GLUCOSE [id number] 02:18:00 Test Item Value Reference Range Interpretation Comments POC-GLUCOSE METER 185 mg/dL 70-110 H TESTED AT [place] [address] ([facility]) (test code = [facility] Ciro [facility] 1538) [address] POCT-GLUCOSE [id number] 00:05:00 Test Item Value Reference Range Interpretation Comments POC-GLUCOSE METER 254 mg/dL 70-110 H TESTED AT [place] [address] ([facility]) (test code = [facility] 1538) [address] POCT-GLUCOSE [id number] 20:51:00 Test Item Value Reference Range Interpretation Comments POC-GLUCOSE METER 157 mg/dL 70-110 H TESTED AT [place] [address] ([facility]) (test code = [facility] 1538) [address] POCT-GLUCOSE [id number] 17:44:00 Test Item Value Reference Range Interpretation Comments POC-GLUCOSE METER 192 mg/dL 70-110 H TESTED AT [place] [address] ([facility]) (test code = [facility] 1538) [address]72 POCT-GLUCOSE [id number] 12:38:00 Test Item Value Reference Range Interpretation Comments POC-GLUCOSE METER 338 mg/dL 70-110 H Notified R Collin STAPLETON/TESTED ([facility]) (test code = AT [address] 1538) [facility] 7703 0 AFB CULTURE + [id number] 10:58:00 Test Item Value Reference Range Interpretation Comments CULTURE ([facility]) (test No acid-fast bacilli code = 1095) isolated in 42 days AFB SMEAR ([facility]) No acid fast bacilli (test code = 994) seen COMPREHENSIVE METABOLIC [id number] 10:31:00 Test Item Value Reference Range Interpretation Comments TOTAL PROTEIN 6.5 gm/dL 6.0-8.3 ([facility]) (test code = 770) ALBUMIN ([facility]) 2.8 g/dL 3.5-5.0 L (test code = [...] PATIEN TS. CBC W/PLT COUNT & AUTO [id number] 10:30:00 Test Item Value Reference Range Interpretation [...] PERCENT (BEAKER) (test code = 2801) POCT-GLUCOSE [id number] 08:59:00 Test Item Value Reference Range Interpretation Comments POC-GLUCOSE METER 108 mg/dL 70-110 TESTED AT [facility] 6720 (BEAKER) (test code = PAUL [place] 1538) [address] POCT-GLUCOSE [id number] 07:11:00 Test Item Value Reference Range Interpretation Comments POC-GLUCOSE METER 170 mg/dL 70-110 H TESTED AT [facility] 6720 (BEAKER) (test code = PAUL [place] 1538) [address] [id number] 06:34:00 Test Item Value Reference Range Interpretation Comments BLOOD UREA NITROGEN (BEAKER) (test 24 mg/dL 7-21 H code = 354) [id number] 06:34:00 Test Item Value Reference Range Interpretation Comments CREATININE ([facility]) 0.87 mg/dL 0.57-1.25 (test code = 358) EGFR [facility] (test 95 mL/min/1.73 ESTIMA MAGDALENO GFR IS code = 1092) sq m NOT ACCURATE CREATININE CLEARANCE IN PREDICTING GLOMERULAR FILTRATION RATE . ESTIMATED GFR I S NOT APPLICABLE FOR DIALYSIS PATIEN TS. POCT-GLUCOSE [id number] 06:05:00 Test Item Value Reference Range Interpretation Comments POC-GLUCOSE METER 171 mg/dL 70-110 H TESTED AT [place] [address] ([facility]) (test code = [facility] Ciro [facility] 1538) [address] SCREEN, [id number] 02:57:00 Test Item Value Reference Range Interpretation Comments TEST URINE ([facility]) (test Negative code = 583) POCT-GLUCOSE [id number] 00:14:00 Test Item Value Reference Range Interpretation Comments POC-GLUCOSE METER 262 mg/dL 70-110 H TESTED AT [place] [address] ([facility]) (test code = NAOMIVT Ciro [facility] 1538) [address] POCT-GLUCOSE [id number] 21:03:00 Test Item Value Reference Range Interpretation Comments POC-GLUCOSE METER 287 mg/dL 70-110 H TESTED AT [place] [address] ([facility]) (test code = NAOMIVT Ciro [facility] 1538) [address]47 RESPIRATORY PANEL [id number] 19:49:00 Test Item Value Reference Range Interpretation [...] decisions. This sample was tested at the [facility] using the [employer] Respiratory Panel. It is FDA cleared and has been verified and approved by the [facility] for clinical use on nasal swab specimens. It is not FDA-cleared for use on bronchial wash/lavage samples. However, for this sample type, validation was performed and test characteristics were determined and approved, by [facility] laboratory for clinical use under the Clinical Laboratory Improvement Amendments (CLIA) of 1988 requirements. Therefore, FDA clearance isnot required. This laboratory is CLIA- certified and [employer] [place] Pathologists (CAP)-accredited to perform high complexity testing.POCT-GLUCOSE [id number] 17:42:00 Test Item Value Reference Range Interpretation Comments POC-GLUCOSE METER 277 mg/dL 70-110 H TESTED AT [facility] 6720 (BEAKER) (test code = PAUL Tanner [facility] 1538) [address]66 POCT-GLUCOSE [id number] 14:59:00 Test Item Value Reference Range Interpretation Comments POC-GLUCOSE METER 328 mg/dL 70-110 H Will Repea t Test/TESTED (BEAKER) (test code = AT [facility] [address] [place] [address] 1538) [place] [address] POCT-GLUCOSE [id number] 12:42:00 Test Item Value Reference Range Interpretation Comments POC-GLUCOSE METER 152 mg/dL 70-110 H TESTED AT [place] [address] (BEAKER) (test code = PAUL Tanner [facility] 1538) 74681 POCT-GLUCOSE [id number] 12:22:00 Test Item Value Reference Range Interpretation Comments POC-GLUCOSE METER 168 mg/dL 70-110 H TESTED AT [place] [address] (BEAKER) (test code = PAUL Tanner [facility] 1538) [address]777 COMPREHENSIVE METABOLIC [id number] 10:53:00 Test Item Value Reference Range Interpretation [...] NOT APPLICABLE FOR DIALYSIS PATIEN TS. POCT-GLUCOSE [id number] 10:43:00 Test Item Value Reference Range Interpretation Comments POC-GLUCOSE METER 126 mg/dL 70-110 H TESTED AT [facility] 6720 ([facility]) (test code = PAUL Tanenr [place] 1538) [address] CBC W/PLT COUNT & AUTO [id number] 10:40:00 Test Item Value Reference Range Interpretation [...] PERCENT (BEAKER) (test code = 2801) POCT-GLUCOSE [id number] 10:22:00 Test Item Value Reference Range Interpretation Comments POC-GLUCOSE METER 95 mg/dL 70-110 TESTED AT [facility] 6720 (BEAKER) (test code = PAUL Tanner [facility] [address] 1538) [id number] 09:47:00 Test Item Value Reference Range Interpretation Comments CREATININE (BEAKER) 0.71 mg/dL 0.57-1.25 (test code = 358) EGFR (BEAKER) (test 121 mL/min/1.73 ESTIM ATED GFR IS code = 1092) sq m NOT ACCURATE CREATININE CLEARANCE IN PREDICTING GLOMERULAR FILTRATION RATE . ESTIMATED GFR I S NOT APPLICABLE FOR DIALYSIS PATIEN TS. [id number] 09:41:00 Test Item Value Reference Range Interpretation Comments BLOOD UREA NITROGEN (BEAKER) (test 15 mg/dL 7-21 code = 354) LACTIC ACID, VENOUS, WHOLE [id number] 09:18:00 Test Item Value Reference Range Interpretation Comments LACTATE BLOOD VENOUS (2) (BEAKER) 1.1 mmol/L 0.5-2.2 (test code = 2872) CBC W/PLT COUNT & AUTO [id number] 09:13:00 Test Item Value Reference Range Interpretation [...] (BEAKER) (test code = 2801) POCT-BLOOD GASES, [id number] 09:11:00 Test Item Value Reference Range Interpretation Comments TEMP, CELSIUS-POC 37.0 (BEAKER) (test code = 1834) FIO2-POC (BEAKER) TESTED AT [place] [address] (test code = 1835) [facility] [address] PH, VENOUS-POC 7.377 7.320-7.420 (BEAKER) (test code [...] H VENOUS-POC (BEAKER) (test code = 1847) [id number] 09:11:00 Test Item Value Reference Range Interpretation Comments POC-SODIUM (BEAKER) 138 meq/L 135-148 TESTED A T [place] [address] (test code = 1542) [facility] [address] [id number] 09:11:00 Test Item Value Reference Range Interpretation Comments POC-POTASSIUM 2.9 meq/L 3.6-5.5 L TESTED AT [place] [address] (BEAKER) (test code [facility] [address] = 1540) [id number] 09:11:00 Test Item Value Reference Range Interpretation Comments POC-GLUCOSE (BEAKER) 143 mg/dL 70-110 H TESTED AT [place] [address] (test code = 1855) [facility] [address] POCT-CALCIUM [id number] 09:11:00 Test Item Value Reference Range Interpretation Comments POC-CALCIUM IONIZED 1.10 mmol/L 1.12-1.27 L TESTED A [place] [address] [facility] (test code = [facility] [place] 1536) [address] [id number] 09:11:00 Test Item Value Reference Range Interpretation Comments POC-HEMATOCRIT 36 % 36-45 TESTED AT [place] [address] ([facility]) (test code = [facility] Ciro [facility] [address] 5407) [id number] 09:11:00 Test Item Value Reference Range Interpretation Comments POC-HEMOGLOBIN 12.2 g/dL 12.0-15.0 TESTED AT [place] [address] ([facility]) (test code [facility] = 1856) [address]355BPTRGN AT [address] [address] POCT-LACTIC ACID, [id number] 09:11:00 Test Item Value Reference Range Interpretation Comments POC-LACTIC ACID, 1.2 mmol/L 0.9-1.7 TESTED AT [place] [address] VENOUS ([facility]) (test [facility] code = 2805) [address] POCT-GLUCOSE [id number] 08:55:00 Test Item Value Reference Range Interpretation Comments POC-GLUCOSE METER 283 mg/dL 70-110 H TESTED AT [place] [address] ([facility]) (test code = [facility] 1538) [address] POCT-GLUCOSE [id number] 08:34:00 Test Item Value Reference Range Interpretation Comments POC-GLUCOSE METER < mg/dL 70-110 LL OUTSIDE ME ASURING ([facility]) (test [facility] = [facility] Test/TESTED AT [address] [address] POCT-GLUCOSE [id number] 21:30:00 Test Item Value Reference Range Interpretation Comments POC-GLUCOSE METER 184 mg/dL 70-110 H TESTED AT [place] [address] ([facility]) (test code = [facility] 1538) [address] POCT-GLUCOSE [id number] 18:56:00 Test Item Value Reference Range Interpretation Comments POC-GLUCOSE METER 128 mg/dL 70-110 H TESTED AT [place] [address] ([facility]) (test code = [facility] 1538) [address] POCT-GLUCOSE [id number] 15:23:00 Test Item Value Reference Range Interpretation Comments POC-GLUCOSE METER 41 mg/dL 70-110 L Will Repea t Test/TESTED ([facility]) (test code = AT [address] 1538) [facility] 7703 0 POCT-GLUCOSE [id number] 13:56:00 Test Item Value Reference Range Interpretation Comments POC-GLUCOSE METER 105 mg/dL 70-110 TESTED AT [place] [address] ([facility]) (test code = [place] [address]) [address] POCT-GLUCOSE [id number] 07:40:00 Test Item Value Reference Range Interpretation Comments POC-GLUCOSE METER 321 mg/dL 70-110 H Will Repea t Test/TESTED ([facility]) (test code = AT [place] [address]) [facility] 7703 0 [id number] 06:19:00 Test Item Value Reference Range Interpretation Comments BLOOD UREA NITROGEN ([facility]) (test 13 mg/dL 05-14 code = 354) [id number] 06:19:00 Test Item Value Reference Range Interpretation Comments CREATININE ([facility]) 0.77 mg/dL 0.57-1.25 (test code = 358) EGFR ([facility]) (test 110 mL/min/1.73 ESTIM ATED GFR IS code = 1092) sq m NOT ACCURATE CREATININE CLEARANCE IN PREDICTING GLOMERULAR FILTRATION RATE . ESTIMATED GFR I S NOT APPLICABLE FOR DIALYSIS PATIEN TS. POCT-GLUCOSE [id number] 21:13:00 Test Item Value Reference Range Interpretation Comments POC-GLUCOSE METER 328 mg/dL 70-110 H TESTED AT [place] [address] ([facility]) (test code = [place] [address]) [address] POCT-GLUCOSE [id number] 16:33:00 Test Item Value Reference Range Interpretation Comments POC-GLUCOSE METER 309 mg/dL 70-110 H TESTED AT [place] [address] ([facility]) (test code = [place] [address]) [address] [id number] 12:59:00 Test Item Value Reference Range Interpretation Comments BLOOD UREA NITROGEN ([facility]) (test 11 mg/dL 05-14 code = 354) [id number] 12:59:00 Test Item Value Reference Range Interpretation Comments CREATININE ([facility]) 0.93 mg/dL 0.57-1.25 (test code = 358) EGFR ([facility]) (test 88 mL/min/1.73 ESTIMA MAGDALENO GFR IS code = 1092) sq m NOT ACCURATE CREATININE CLEARANCE IN PREDICTING GLOMERULAR FILTRATION RATE . ESTIMATED GFR I S NOT APPLICABLE FOR DIALYSIS PATIEN TS. POCT-GLUCOSE [id number] 12:45:00 Test Item Value Reference Range Interpretation Comments POC-GLUCOSE METER 206 mg/dL 70-110 H TESTED AT [place] [id number] (BEAKER) (test code = PAUL Tanner [facility] 1538) [address] BASIC METABOLIC [id number] 10:43:00 Test Item Value Reference Range Interpretation [...] NOT APPLICABLE FOR DIALYSIS PATIEN TS. KETONE, [id number] 10:27:00 Test Item Value Reference Range Interpretation Comments KETONES, BLOOD (BEAKER) (test code 0.1 mmol/L <0.4 = 1103) POCT-GLUCOSE [id number] 09:46:00 Test Item Value Reference Range Interpretation Comments POC-GLUCOSE METER 468 mg/dL 70-110 HH TESTED AT [place] [address] (BEAKER) (test code = PAUL Tanner [facility] 1538) [address] POCT-GLUCOSE [id number] 09:06:00 Test Item Value Reference Range Interpretation Comments POC-GLUCOSE METER 447 mg/dL 70-110 HH Will Repea t Test/TESTED (BEAKER) (test code = AT [facility] 67[address] [facility] 1538) [facility] 7703 0 POCT-GLUCOSE [id number] 04:35:00 Test Item Value Reference Range Interpretation Comments POC-GLUCOSE METER 430 mg/dL 70-110 HH Notified R N MD/TESTED (BEAKER) (test code = [place] [address] [facility] [place] [address] 0 POCT-GLUCOSE [id number] 00:48:00 Test Item Value Reference Range Interpretation Comments POC-GLUCOSE METER 481 mg/dL 70-110 HH Notified R N MD/TESTED (BEAKER) (test code = AT [address] 1538) [place] [address] 0 SPIN/CONCENTRATION [id number] 00:21:00 Test Item Value Reference Range Interpretation Comments CONCENTRATION CHARGED (BEAKER) (test Done code = 2657) POCT-GLUCOSE [id number] 22:01:00 Test Item Value Reference Range Interpretation Comments POC-GLUCOSE METER > mg/dL 70-110 HH OUTSIDE ME ASURING (BEAKER) (test code RANGENot ified JORDON MD/TESTED = 1538) AT [place] [id number] [place] [address] 0 RESPIRATORY PANEL [id number] 20:48:00 Test Item Value Reference Range Interpretation [...] decisions. This sample was tested at the [facility] using the [employer] Respiratory Panel. It is FDA cleared and has been verified and approved by the [facility] for clinical use on nasal swab specimens. It is not FDA-cleared for use on bronchial wash/lavage samples. However, for this sample type, validation was performed and test characteristics were determined and approved, by [facility] for clinical use under the Clinical Laboratory Improvement Amendments (CLIA) of 1988 requirements. Therefore, FDA clearance isnot required. This laboratory is CLIA- certified and [employer] [place] Path[employer] (CAP)-accredited to perform high complexity testing.POCT-GLUCOSE [id number] 18:50:00 Test Item Value Reference Range Interpretation Comments POC-GLUCOSE METER > mg/dL 70-110 HH OUTSIDE ME ASURING (SIMI) (test code RANGETES MAGDALENO AT [facility] 6720 = 1538) [facility] [id number] POCT-GLUCOSE [id number] 13:49:00 Test Item Value Reference Range Interpretation Comments POC-GLUCOSE METER > mg/dL 70-110 HH OUTSIDE ME ASURING (SIMI) (test code [place] [address] = 1538) [facility] [address] HEMOGLOBIN [id number] 09:49:00 Test Item Value Reference Range Interpretation Comments HEMOGLOBIN A1C (BEAKER) (test code = 12.9 % 4.3-6.1 H 368) POCT-GLUCOSE [id number] 08:18:00 Test Item Value Reference Range Interpretation Comments POC-GLUCOSE METER 301 mg/dL 70-110 H TESTED AT [place] [id number] (BEAKER) (test code = PAUL [facility] 1538) [address] URINALYSIS [id number] 06:31:00 Test Item Value Reference Range Interpretation Comments RBC UA (BEAKER) (test code = 519) 2 /HPF WBC UA (BEAKER) (test code = 520) 4 /HPF BACTERIA (BEAKER) (test code = 517) Rare MUCUS (BEAKER) (test code = 1574) Rare SQUAMOUS EPITHELIAL (BEAKER) (test 4 /HPF code = 516) YEAST (BEAKER) (test code = 1585) Few URINALYSIS WITH MICROSCOPIC IF [id number] 06:24:00 Test Item Value Reference Range Interpretation [...] SOURCE(BEAKER) (test code = 2795) COMPREHENSIVE METABOLIC [id number] 05:21:00 Test Item Value Reference Range Interpretation [...] S NOT APPLICABLE FOR DIALYSIS PATIEN TS. [id number] 05:05:00 Test Item Value Reference Range Interpretation Comments MAGNESIUM (BEAKER) 1.4 mg/dL 1.6-2.6 L Specimen slightly (test code = 627) hemolyzed [id number] 05:05:00 Test Item Value Reference Range Interpretation Comments PHOSPHORUS (BEAKER) 3.9 mg/dL 2.3-4.7 Specimen slightly (test code = 604) hemolyzed [id number] 05:05:00 Test Item Value Reference Range Interpretation Comments BLOOD UREA NITROGEN (BEAKER) (test 6 mg/dL 7-21 L code = 354) [id number] 05:05:00 Test Item Value Reference Range Interpretation [...] hemolyz ed (test code = 364) POCT-GLUCOSE [id number] 04:43:00 Test Item Value Reference Range Interpretation Comments POC-GLUCOSE METER 493 mg/dL 70-110 Notified R N MD/TESTED (BEAKER) (test code = AT [facility] 67[address] [facility] 1534) [place] [address] CBC W/PLT COUNT & AUTO [id number] 04:15:00 Test Item Value Reference Range Interpretation [...] (BEAKER) (test code = 2801) POCT-LACTIC ACID, [id number] 21:07:00 Test Item Value Reference Range Interpretation Comments POC-LACTIC ACID, 1.5 mmol/L 0.9-1.7 TESTED AT [facility] 6720 VENOUS (BEAKER) (test [facility] code = 2805) [address] RAD, CHEST, 2 [id number] 20:59:00Reason for exam:->SHORTNESS OF BREATHShould this be performed at the bedside?->NoIs the patient ?->UnknownFINAL REPORT Chest, 2 views, 09/22/2018 8:22 PM. History: Shortness of breath. Comparison: 08/15/2018. Discussion: The cardiomediastinal silhouette and pulmonary vasculature are wit hin normal limits. Bilateral interstitial opacities with upper lobe predominance is unchanged. No new focal consolidation or effusion. Right IJ Port-A-Cath is unchanged in position. There are no acute osseous abnormalities. The soft tissues are unremarkable. IMPRESSION: Findings consistent with fibrosis. No acute cardiopulmonary abnormality. Signed: Jerald Maciasort Verified Date/Time: 09/22/2018 20:59:18 Reading Location: [facility] B1 C013W Consult Reading Room ONIN [id number] 20:13:00 Test Item Value Reference Range Interpretation Comments TROPONIN I (BEAKER) (test code = 397) < ng/mL 0.00-0.03 [id number] 20:07:00 Test Item Value Reference Range Interpretation Comments MAGNESIUM (BEAKER) (test code = 1.7 mg/dL 1.6-2.6 627) COMPREHENSIVE METABOLIC [id number] 20:07:00 Test Item Value Reference Range Interpretation [...] S NOT APPLICABLE FOR DIALYSIS PATIEN TS. [id number] 20:07:00 Test Item Value Reference Range Interpretation Comments LIPASE (BEAKER) (test code = 749) < U/L 8-78 L [id number] 20:03:00 Test Item Value Reference Range Interpretation Comments PROTIME (BEAKER) (test code = 14.1 seconds 11.7-14.7 759) INR (BEAKER) (test code = 370) 1.1 <=5.9 PARTIAL THROMBOPLASTIN TIME 34.3 seconds 22.5-36.0 (BEAKER) (test code = 760) RECOMMENDED COUMADIN/WARFARIN INR THERAPY RANGESSTANDARD DOSE: 2.0 - 3.0 Includes: PROPHYLAXIS for venous thrombosis, systemic embolization; TREATMENT for venous thrombosis and/or pulmonary embolus.HIGH RISK: Target INR is 2.5-3.5 for patients with mechanical heart valves.CBC W/PLT COUNT & AUTO [id number] 19:57:00 Test Item Value Reference Range Interpretation [...] (test code = 2801) FUNGUS CULTURE + [id number] 11:38:00 Test Item Value Reference Range Interpretation Comments CULTURE (BEAKER) A 1 out of 3 media (test code = 1095) Penicilli um speciesThis is a corrected organism result. Previou s result was Mold on 09/2018 at 0812 [employer] FUNGUS SMEAR (BEAKER) 2+ yeast (test code = 1406) CF RESPIRATORY [id number] 15:08:00 Test Item Value Reference Range Interpretation [...] = 25) Resistant <0 or >4 CULTURE ([facility]) PSEUDOMONAS A 4+ Pseudomo viki (test code [...] or >4 3+ Normal respiratory derick presentPOCT-GLUCOSE [id number] 13:25:00 Test Item Value Reference Range Interpretation Comments POC-GLUCOSE METER 178 mg/dL 70-110 H TESTED AT [facility] 6720 (Exoprise) (test code = [place] 1538) [address] [id number] 11:51:00 Test Item Value Reference Range Interpretation Comments POTASSIUM (Exoprise) (test code = 4.6 meq/L 3.5-5.1 379) BASIC METABOLIC [id number] 10:31:00 Test Item Value Reference Range Interpretation [...] S NOT APPLICABLE FOR DIALYSIS PATIEN TS. [id number] 10:26:00 Test Item Value Reference Range Interpretation Comments MAGNESIUM (BEAKER) (test code = 1.6 mg/dL 1.6-2.6 627) POCT-GLUCOSE [id number] 09:00:00 Test Item Value Reference Range Interpretation Comments POC-GLUCOSE METER 217 mg/dL 70-110 H TESTED AT [facility] 6720 (BEAKER) (test code = [place] 1538) [address] POCT-GLUCOSE [id number] 22:17:00 Test Item Value Reference Range Interpretation Comments POC-GLUCOSE METER 144 mg/dL 70-110 H TESTED AT [facility] 6720 (BEAKER) (test code = [place] 1538) [address] POCT-GLUCOSE [id number] 21:22:00 Test Item Value Reference Range Interpretation Comments POC-GLUCOSE METER 239 mg/dL 70-110 H TESTED AT [facility] 6720 (BEAKER) (test code = [place] 1538) [address] POCT-GLUCOSE [id number] 14:57:00 Test Item Value Reference Range Interpretation Comments POC-GLUCOSE METER 175 mg/dL 70-110 H TESTED AT [facility] 6720 [facility] (test code = PAUL Tanner [facility] 1538) [address] RAD, ABDOMEN/KUB, 1 VIEW [id number] 14:55:00Reason for exam:->abdominal painFINAL REPORT EXAM: AP [...] seen. No acute osseous abnormality. Signed: [facility] Verified Date/Time: 08/24/2018 14:55:58 Reading Location: [facility] Reading Room POCT-GLUCOSE [id number] 11:49:00 Test Item Value Reference Range Interpretation Comments POC-GLUCOSE METER 137 mg/dL 70-110 H TESTED AT [facility] 6720 [facility] (test code = PAUL Tanner [facility] 1538) [address] POCT-GLUCOSE [id number] 08:36:00 Test Item Value Reference Range Interpretation Comments POC-GLUCOSE METER 106 mg/dL 70-110 TESTED AT [facility] 6720 [facility] (test code = PAUL Tanner [facility] 1538) [address] BASIC METABOLIC [id number] 06:35:00 Test Item Value Reference Range Interpretation [...] S NOT APPLICABLE FOR DIALYSIS PATIEN TS. [id number] 06:35:00 Test Item Value Reference Range Interpretation Comments MAGNESIUM (BEAKER) (test code = 1.4 mg/dL 1.6-2.6 L 627) BASIC METABOLIC [id number] 06:35:00 Test Item Value Reference Range Interpretation [...] NOT APPLICABLE FOR DIALYSIS PATIEN TS. POCT-GLUCOSE [id number] 23:02:00 Test Item Value Reference Range Interpretation Comments POC-GLUCOSE METER 142 mg/dL 70-110 H TESTED AT [facility] 6720 [facility] (test code = PAUL Tanner [facility] 1538) [address] POCT-GLUCOSE [id number] 19:53:00 Test Item Value Reference Range Interpretation Comments POC-GLUCOSE METER 281 mg/dL 70-110 H TESTED AT [facility] 6720 [facility] (test code = PAUL Tanner [facility] 1538) [address] POCT-GLUCOSE [id number] 15:30:00 Test Item Value Reference Range Interpretation Comments POC-GLUCOSE METER 155 mg/dL 70-110 H TESTED AT [place] [address] ([facility]) (test code = PAUL Tanner [facility] 1538) [address] POCT-GLUCOSE [id number] 09:06:00 Test Item Value Reference Range Interpretation Comments POC-GLUCOSE METER 97 mg/dL 70-110 TESTED AT [place] [address] ([facility]) (test code = PAUL Tanner [facility] [address] 1538) POCT-GLUCOSE [id number] 21:52:00 Test Item Value Reference Range Interpretation Comments POC-GLUCOSE METER 339 mg/dL 70-110 H Notified R Collin STAPLETON/TESTED ([facility]) (test code = AT [address] 1538) [facility] 7703 0 POCT-GLUCOSE [id number] 18:04:00 Test Item Value Reference Range Interpretation Comments POC-GLUCOSE METER > mg/dL 70-110 HH OUTSIDE ME ASURING ([facility]) (test code RANGETES MAGDALENO AT [place] [address] = 1538) [facility] [address] POCT-GLUCOSE [id number] 17:40:00 Test Item Value Reference Range Interpretation Comments POC-GLUCOSE METER 49 mg/dL 70-110 L TESTED AT [place] [address] ([facility]) (test code = NAOMIVT Ciro [facility] [address] 1538) POCT-GLUCOSE [id number] 08:23:00 Test Item Value Reference Range Interpretation Comments POC-GLUCOSE METER 70 mg/dL 70-110 TESTED AT [place] [address] ([facility]) (test code = PAUL Tanner [facility] [address] 1538) POCT-GLUCOSE [id number] 01:59:00 Test Item Value Reference Range Interpretation Comments POC-GLUCOSE METER 161 mg/dL 70-110 H TESTED AT [place] [address] ([facility]) (test code = [facility] Ciro [facility] 1538) [address] POCT-GLUCOSE [id number] 21:38:00 Test Item Value Reference Range Interpretation Comments POC-GLUCOSE METER 113 mg/dL 70-110 H TESTED AT [place] [address] ([facility]) (test code = [facility] Ciro [facility] 1538) [address] POCT-GLUCOSE [id number] 17:47:00 Test Item Value Reference Range Interpretation Comments POC-GLUCOSE METER 139 mg/dL 70-110 H TESTED AT [facility] 6720 (BEAKER) (test code = [place] Tanner [place] 1538) [address] POCT-GLUCOSE [id number] 12:13:00 Test Item Value Reference Range Interpretation Comments POC-GLUCOSE METER 172 mg/dL 70-110 H TESTED AT [facility] 6720 (BEAKER) (test code = [place] Tanner [facility] 1538) [address] BASIC METABOLIC [id number] 09:30:00 Test Item Value Reference Range Interpretation [...] NOT APPLICABLE FOR DIALYSIS PATIEN TS. POCT-GLUCOSE [id number] 08:40:00 Test Item Value Reference Range Interpretation Comments POC-GLUCOSE METER 100 mg/dL 70-110 TESTED AT [facility] 6720 (BEAKER) (test code = [place] Tanner [place] 1538) [address] POCT-GLUCOSE [id number] 01:48:00 Test Item Value Reference Range Interpretation Comments POC-GLUCOSE METER 186 mg/dL 70-110 H TESTED AT [facility] 6720 (BEAKER) (test code = PAUL Tanner [place] 1538) [address] BLOOD [id number] 00:00:00 Test Item Value Reference Range Interpretation Comments CULTURE (BEAKER) (test No growth in 5 days code = 1095) POCT-GLUCOSE [id number] 21:54:00 Test Item Value Reference Range Interpretation Comments POC-GLUCOSE METER 232 mg/dL 70-110 H TESTED AT [place] [address] ([facility] (test code = [facility] 1538) [address] POCT-GLUCOSE [id number] 18:20:00 Test Item Value Reference Range Interpretation Comments POC-GLUCOSE METER 223 mg/dL 70-110 H TESTED AT [place] [address] ([facility] (test code = [facility] 1538) [address] POCT-GLUCOSE [id number] 10:25:00 Test Item Value Reference Range Interpretation Comments POC-GLUCOSE METER 230 mg/dL 70-110 H TESTED AT [place] [address] ([facility]) (test code = [facility] 1538) [address] BASIC METABOLIC [id number] 08:57:00 Test Item Value Reference Range Interpretation [...] NOT APPLICABLE FOR DIALYSIS PATIEN TS. POCT-GLUCOSE [id number] 08:43:00 Test Item Value Reference Range Interpretation Comments POC-GLUCOSE METER 68 mg/dL 70-110 L TESTED AT [place] [address] ([facility]) (test code = [facility] [address] 1538) POCT-GLUCOSE [id number] 01:17:00 Test Item Value Reference Range Interpretation Comments POC-GLUCOSE METER 160 mg/dL 70-110 H TESTED AT [place] [address] ([facility]) (test code = [place] Tanner [facility] 1538) [address] POCT-GLUCOSE [id number] 19:47:00 Test Item Value Reference Range Interpretation Comments POC-GLUCOSE METER 193 mg/dL 70-110 H TESTED AT [place] [address] ([facility]) (test code = PAUL Tanner [facility] 1538) [address] POCT-GLUCOSE [id number] 15:44:00 Test Item Value Reference Range Interpretation Comments POC-GLUCOSE METER 80 mg/dL 70-110 TESTED AT [place] [address] ([facility]) (test code = PAUL Tanner [facility] [address] 1538) POCT-GLUCOSE [id number] 14:11:00 Test Item Value Reference Range Interpretation Comments POC-GLUCOSE METER 78 mg/dL 70-110 TESTED AT [place] [address] ([facility]) (test code = PAUL Tanner [facility] [address] 1538) POCT-GLUCOSE [id number] 12:59:00 Test Item Value Reference Range Interpretation Comments POC-GLUCOSE METER 57 mg/dL 70-110 L Notified R Collin STAPLETON/TESTED AT ([facility]) (test code = [place] [address] [place] 1538) [facility] 7703 0 POCT-GLUCOSE [id number] 12:21:00 Test Item Value Reference Range Interpretation Comments POC-GLUCOSE METER 67 mg/dL 70-110 L Notified R Collin STAPLETON/TESTED AT ([facility]) (test code = [place] [address] [place] 1538) [facility] 7703 0 POCT-GLUCOSE [id number] 09:53:00 Test Item Value Reference Range Interpretation Comments POC-GLUCOSE METER 170 mg/dL 70-110 H TESTED AT [place] [address] ([facility]) (test code = PAUL Tanner [facility] 1538) [address] POCT-GLUCOSE [id number] 08:38:00 Test Item Value Reference Range Interpretation Comments POC-GLUCOSE METER 52 mg/dL 70-110 L Notified R Collin MD/TESTED AT ([facility]) (test code = [place] [address] [place] [facility]8) [facility] 7703 0 BASIC METABOLIC [id number] 07:10:00 Test Item Value Reference Range Interpretation [...] APPLICABLE FOR DIALYSIS PATIEN TS. PROTEIN, RANDOM [id number] 22:37:00 Test Item Value Reference Range Interpretation Comments PROTEIN, URINE (BEAKER) (test code 235 mg/dL 0-14 H = 1569) CREATININE, RANDOM [id number] 22:35:00 Test Item Value Reference Range Interpretation Comments CREATININE URINE (BEAKER) (test 84.6 mg/dL code = 375) Reference Range: No NormalsPOCT-GLUCOSE [id number] 21:41:00 Test Item Value Reference Range Interpretation Comments POC-GLUCOSE METER 292 mg/dL 70-110 H TESTED AT [place] [address] [facility] (test code = [facility] 1538) [address] POCT-GLUCOSE [id number] 17:51:00 Test Item Value Reference Range Interpretation Comments POC-GLUCOSE METER 241 mg/dL 70-110 H TESTED AT [place] [address] ([facility]) (test code = [facility] 1538) [address] POCT-GLUCOSE [id number] 12:32:00 Test Item Value Reference Range Interpretation Comments POC-GLUCOSE METER 123 mg/dL 70-110 H TESTED AT [place] [address] ([facility]) (test code = [facility] 1538) [address] POCT-GLUCOSE [id number] 08:24:00 Test Item Value Reference Range Interpretation Comments POC-GLUCOSE METER 408 mg/dL 70-110 HH Notified Ciro Polanco MD/TESTED ([facility]) (test code = AT [place] [address] [place] [facility]8) [facility] 7703 0 [id number] 07:32:00 Test Item Value Reference Range Interpretation Comments BLOOD UREA NITROGEN ([facility]) (test 15 mg/dL 7-21 code = 354) [id number] 07:32:00 Test Item Value Reference Range Interpretation Comments CREATININE ([facility]) 0.73 mg/dL 0.57-1.25 (test code = 358) EGFR ([facility]) (test 117 mL/min/1.73 ESTIM ATED GFR IS code = 1092) sq m NOT ACCURATE CREATININE CLEARANCE IN PREDICTING GLOMERULAR FILTRATION RATE . ESTIMATED GFR I S NOT APPLICABLE FOR DIALYSIS PATIEN TS. POCT-GLUCOSE [id number] 21:43:00 Test Item Value Reference Range Interpretation Comments POC-GLUCOSE METER 192 mg/dL 70-110 H TESTED AT [place] [address] ([facility]) (test code = [place]UL Tanner [place] [address]) [address] POCT-GLUCOSE [id number] 17:46:00 Test Item Value Reference Range Interpretation Comments POC-GLUCOSE METER 147 mg/dL 70-110 H TESTED AT [place] [address] ([facility]) (test code = PAUL Tanner [place] [address]198) [address] POCT-GLUCOSE [id number] 12:38:00 Test Item Value Reference Range Interpretation Comments POC-GLUCOSE METER 203 mg/dL 70-110 H TESTED AT [place] [address] ([facility]) (test code = PAUL Tanner [place] 5[address]198) [address] HEMOGLOBIN [id number] 11:18:00 Test Item Value Reference Range Interpretation Comments HEMOGLOBIN A1C ([facility]) (test code = 16.1 % 4.3-6.1 H 368) POCT-GLUCOSE [id number] 09:15:00 Test Item Value Reference Range Interpretation Comments POC-GLUCOSE METER 330 mg/dL 70-110 H Notified Ciro Polanco MD/TESTED ([facility]) (test code = AT [place] [address] [place] [facility]8) [facility] 7703 0 [id number] 07:34:00 Test Item Value Reference Range Interpretation Comments CREATININE (BEAKER) 0.83 mg/dL 0.57-1.25 Specimen slightly (test code = 358) hemolyzed EGFR (BEAKER) (test 101 mL/min/1.73 ESTIM ATED GFR IS code = 1092) sq m NOT ACCURATE CREATININE CLEARANCE IN PREDICTING GLOMERULAR FILTRATION RATE . ESTIMATED GFR I S NOT APPLICABLE FOR DIALYSIS PATIEN TS. [id number] 07:34:00 Test Item Value Reference Range Interpretation Comments BLOOD UREA NITROGEN (BEAKER) (test 15 mg/dL 7-21 code = 354) POCT-GLUCOSE [id number] 01:59:00 Test Item Value Reference Range Interpretation Comments POC-GLUCOSE METER 78 mg/dL 70-110 TESTED AT [place] [address] ([facility]) (test code = PAUL Tanner [facility] [id number] 1094) BASIC METABOLIC [id number] 23:00:00 Test Item Value Reference Range Interpretation [...] NOT APPLICABLE FOR DIALYSIS PATIEN TS. POCT-GLUCOSE [id number] 21:22:00 Test Item Value Reference Range Interpretation Comments POC-GLUCOSE METER > mg/dL 70-110 HH OUTSIDE ME ASURING (BEAKER) (test code RANGENot ified JORDON STAPLETON/TESTED = 1530) AT [place] [address] B [facility] 7704 0 RESPIRATORY PANEL [id number] 18:44:00 Test Item Value Reference Range Interpretation [...] decisions. This sample was tested at the [facility] using the [employer] Respiratory Panel. It is FDA cleared and has been verified and approved by the [facility] for clinical use on nasal swab specimens. It is not FDA-cleared for use on bronchial wash/lavage samples. However, for this sample type, validation was performed and test characteristics were determined and approved, by [facility] for clinical use under the Clinical Laboratory Improvement Amendments (CLIA) of 1988 requirements. Therefore, FDA clearance isnot required. This laboratory is CLIA- certified and [employer] [place] [employer] ([employer])-accredited to perform high complexity testing.POCT-GLUCOSE [id number] 18:36:00 Test Item Value Reference Range Interpretation Comments POC-GLUCOSE METER > mg/dL 70-110 HH OUTSIDE ME ASURING ([facility]) (test code RANGETES MAGDALENO AT [place] [address] = 1538) [facility] [address] SPIN/CONCENTRATION [id number] 12:46:00 Test Item Value Reference Range Interpretation Comments CONCENTRATION CHARGED ([facility]) (test Done code = 2657) POCT-GLUCOSE [id number] 12:21:00 Test Item Value Reference Range Interpretation Comments POC-GLUCOSE METER 286 mg/dL 70-110 H TESTED AT [place] [address] ([facility]) (test code = [facility] 1538) [address] POCT-GLUCOSE [id number] 08:25:00 Test Item Value Reference Range Interpretation Comments POC-GLUCOSE METER 295 mg/dL 70-110 H TESTED AT [place] [address] ([facility]) (test code = [facility] 1538) [address] [id number] 07:37:00 Test Item Value Reference Range Interpretation Comments BLOOD UREA NITROGEN ([facility]) (test 5 mg/dL 7-21 L code = 354) [id number] 07:37:00 Test Item Value Reference Range Interpretation Comments CREATININE ([facility]) 0.64 mg/dL 0.57-1.25 Specimen slightly (test code = 358) hemolyzed EGFR ([facility]) (test 136 mL/min/1.73 ESTIM ATED GFR IS code = 1092) sq m NOT ACCURATE CREATININE CLEARANCE IN PREDICTING GLOMERULAR FILTRATION RATE . ESTIMATED GFR I S NOT APPLICABLE FOR DIALYSIS PATIEN TS. POCT-GLUCOSE [id number] 06:33:00 Test Item Value Reference Range Interpretation Comments POC-GLUCOSE METER 44 mg/dL 70-110 L Notified Ciro Polanco MD/TESTED AT (BEAKER) (test code = [facility] 6720 [facility] 1538) [facility] 7703 0 POCT-GLUCOSE [id number] 03:10:00 Test Item Value Reference Range Interpretation Comments POC-GLUCOSE METER 406 mg/dL 70-110 HH Notified Ciro Polanco MD/TESTED (BEAKER) (test code = AT [facility] 6720 [facility] 1538) [facility] 7703 0 RAD, CHEST, 2 [id number] 22:01:00Reason for exam:->COUGHReason for exam:->SHORTNESS OF BREATHShould this be performed at the bedside?->NoIs the patient ?->UnknownFINAL REPORT TECHNIQUE: 2 views of the chest. COMPARISON: 06/26/2018 FINDINGS: The cardiac silhouette is within normal limits. Mediastinum is unremarkable. Bilateral interstitial and airspace opacities with areas of bronchiectasis and cystic changes again noted compatible with cystic fibrosis. No new lung parenchymal changes. No large effusions or pneumothorax. No acute skeletal abnormality. Right internal jugular chest port noted with tip at the cavoatrial junction. IMPRESSION: No acute cardiopulmonary disease. No significant change from previous. Signed: Lg Valdez MDReport Verified Date/Time: 08/15/2018 22:01:46 Reading Location: [facility] Reading Room PREGNANCY SCREEN, [id number] 21:12:00 Test Item Value Reference Range Interpretation Comments TEST URINE (BEAKER) (test Negative code = 583) COMPREHENSIVE METABOLIC [id number] 17:43:00 Test Item Value Reference Range Interpretation [...] APPLICABLE FOR DIALYSIS PATIEN TS. POCT-LACTIC ACID, [id number] 17:20:00 Test Item Value Reference Range Interpretation Comments POC-LACTIC ACID, 1.4 mmol/L 0.9-1.7 TESTED AT [facility] 6720 VENOUS (BEAKER) ([facility] [place] code = 2134) [address] CBC W/PLT COUNT & AUTO [id number] 17:20:00 Test Item Value Reference Range Interpretation [...] (test code = 2801) AFB CULTURE + [id number] 13:38:00 Test Item Value Reference Range Interpretation Comments CULTURE (BEAKER) (test No acid-fast bacilli code = 1095) isolated in 42 days AFB SMEAR (BEAKER) No acid fast bacilli (test code = 994) seen POCT-GLUCOSE [id number] 08:03:00 Test Item Value Reference Range Interpretation Comments POC-GLUCOSE METER 169 mg/dL 70-110 H TESTED AT [place] [address] ([facility]) (test code = PAUL Tanner [facility] 1538) [address] BUN AND [id number] 06:31:00 Test Item Value Reference Range Interpretation Comments BLOOD UREA NITROGEN 25 mg/dL 7-21 H ([facility]) (test code = 354) CREATININE ([facility]) 0.70 mg/dL 0.57-1.25 (test code = 358) EGFR ([facility]) (test 124 mL/min/1.73 ESTIM ATED GFR IS code = 1092) sq m NOT ACCURATE CREATININE CLEARANCE IN PREDICTING GLOMERULAR FILTRATION RATE . ESTIMATED GFR I S NOT APPLICABLE FOR DIALYSIS PATIEN TS. POCT-GLUCOSE [id number] 23:55:00 Test Item Value Reference Range Interpretation Comments POC-GLUCOSE METER 179 mg/dL 70-110 H TESTED AT [place] [address] ([facility]) (test code = PAUL Tanner [facility] 1538) [address] POCT-GLUCOSE [id number] 17:30:00 Test Item Value Reference Range Interpretation Comments POC-GLUCOSE METER 216 mg/dL 70-110 H TESTED AT [place] [address] ([facility]) (test code = [facility] Ciro [facility] 1538) [address] POCT-GLUCOSE [id number] 11:49:00 Test Item Value Reference Range Interpretation Comments POC-GLUCOSE METER 97 mg/dL 70-110 TESTED AT [place] [address] ([facility]) (test code = PAUL Tanner [facility] [address] 1538) POCT-GLUCOSE [id number] 08:09:00 Test Item Value Reference Range Interpretation Comments POC-GLUCOSE METER 72 mg/dL 70-110 TESTED AT [place] [address] ([facility]) (test code = [facility] Ciro [facility] [address] 1538) BUN AND [id number] 08:08:00 Test Item Value Reference Range Interpretation Comments BLOOD UREA NITROGEN 23 mg/dL 7-21 H ([facility]) (test code = 354) CREATININE ([facility]) 0.62 mg/dL 0.57-1.25 (test code = 358) EGFR ([facility]) (test 142 mL/min/1.73 ESTIM ATED GFR IS code = 1092) sq m NOT ACCURATE CREATININE CLEARANCE IN PREDICTING GLOMERULAR FILTRATION RATE . ESTIMATED GFR I S NOT APPLICABLE FOR DIALYSIS PATIEN TS. POCT-GLUCOSE [id number] 21:04:00 Test Item Value Reference Range Interpretation Comments POC-GLUCOSE METER 143 mg/dL 70-110 H TESTED AT [place] [address] ([facility]) (test code = PAUL Tanner [place] 1538) [address] POCT-GLUCOSE [id number] 17:36:00 Test Item Value Reference Range Interpretation Comments POC-GLUCOSE METER 195 mg/dL 70-110 H TESTED AT [place] [address] ([facility]) (test code = [facility] Ciro [facility] 1538) [address]28 POCT-GLUCOSE [id number] 12:58:00 Test Item Value Reference Range Interpretation Comments POC-GLUCOSE METER 73 mg/dL 70-110 TESTED AT [place] [address] ([facility]) (test code = [facility] Ciro [facility] [address] 1538) POCT-GLUCOSE [id number] 08:07:00 Test Item Value Reference Range Interpretation Comments POC-GLUCOSE METER 320 mg/dL 70-110 H Notified R Collin or ([facility]) (test code = Patien t refused repeat 1538) test/TESTED [place] [address] [place] [address] BUN AND [id number] 07:07:00 Test Item Value Reference Range Interpretation Comments BLOOD UREA NITROGEN 25 mg/dL 7-21 H ([facility]) (test code = 354) CREATININE ([facility]) 0.92 mg/dL 0.57-1.25 Specimen slightly (test code = 358) hemolyzed EGFR ([facility]) (test 90 mL/min/1.73 ESTIMA MAGDALENO GFR IS code = 1092) sq m NOT ACCURATE CREATININE CLEARANCE IN PREDICTING GLOMERULAR FILTRATION RATE . ESTIMATED GFR I S NOT APPLICABLE FOR DIALYSIS PATIEN TS. CBC W/PLT COUNT & AUTO [id number] 06:10:00 Test Item Value Reference Range Interpretation Comments WHITE BLOOD CELL COUNT ([facility]) 14.1 K/ L 3.5-10.5 H (test code = 775) RED BLOOD CELL COUNT ([facility]) 3.56 M/ L 3.93-5.22 L (test code = 761) HEMOGLOBIN (BEAKER) (test code = 9.4 GM/DL 11.2-15.7 L 410) HEMATOCRIT (AKER) (test code = 32.4 % 34.1-44.9 L [...] PERCENT (BEAKER) (test code = 2801) POCT-GLUCOSE [id number] 22:03:00 Test Item Value Reference Range Interpretation Comments POC-GLUCOSE METER 96 mg/dL 70-110 TESTED AT [facility] 6720 (BEAKER) (test code = [place] [address] 1538) POCT-GLUCOSE [id number] 21:57:00 Test Item Value Reference Range Interpretation Comments POC-GLUCOSE METER 67 mg/dL 70-110 L Notified Ciro [facility] AT [facility] (test code = [address] 1538) [facility] 7703 0 POCT-GLUCOSE [id number] 17:48:00 Test Item Value Reference Range Interpretation Comments POC-GLUCOSE METER 210 mg/dL 70-110 H TESTED AT [place] [address] ([facility]) (test code = PAUL Tanner [facility] 1538) 99677 POCT-GLUCOSE [id number] 12:42:00 Test Item Value Reference Range Interpretation Comments POC-GLUCOSE METER 193 mg/dL 70-110 H TEST[facility] AT [place] [address] [facility] (test code = PAUL Tanner [facility] 1538) [address] POCT-GLUCOSE [id number] 08:38:00 Test Item Value Reference Range Interpretation Comments POC-GLUCOSE METER 139 mg/dL 70-110 H TESTED AT [place] [address] ([facility]) (test code = [facility] Ciro [facility] 1538) [address] BASIC METABOLIC [id number] 06:31:00 Test Item Value Reference Range Interpretation [...] APPLICABLE FOR DIALYSIS PATIEN TS. BUN AND [id number] 06:30:00 Test Item Value Reference Range Interpretation [...] PATIEN TS. CBC W/PLT COUNT & AUTO [id number] 06:11:00 Test Item Value Reference Range Interpretation [...] LYMPHOCYTES ABSOLUTE COUNT 1.20 K/ L 1.18-3.74 ([facility]) (test code = 414) MONOCYTES ABSOLUTE COUNT (AKER) 0.91 K/ L 0.24-0.36 H (test code = 415) EOSINOPHILS ABSOLUTE COUNT 0.01 K/ L 0.04-0.36 L ([facility]) (test code = 416) BASOPHILS ABSOLUTE COUNT (AKER) 0.02 K/ L 0.01-0.08 (test code = 417) IMMATURE GRANULOCYTES-RELATIVE 1 % 0-1 PERCENT ([facility]) (test code = 2801) POCT-GLUCOSE [id number] 21:38:00 Test Item Value Reference Range Interpretation Comments POC-GLUCOSE METER 266 mg/dL 70-110 H TESTED AT [place] [address] ([facility]) (test code = [facility] 1538) 6[address] POCT-GLUCOSE [id number] 17:38:00 Test Item Value Reference Range Interpretation Comments POC-GLUCOSE METER 213 mg/dL 70-110 H TESTED AT [place] [address] ([facility]) (test code = [facility] 1538) 26708 POCT-GLUCOSE [id number] 13:23:00 Test Item Value Reference Range Interpretation Comments POC-GLUCOSE METER 272 mg/dL 70-110 H TESTED AT [place] [address] ([facility]) (test code = [facility] 1538) 80773 POCT-GLUCOSE [id number] 11:56:00 Test Item Value Reference Range Interpretation Comments POC-GLUCOSE METER 120 mg/dL 70-110 H TESTED AT [place] [address] ([facility]) (test code = [facility] 1538) 65882 POCT-GLUCOSE [id number] 08:20:00 Test Item Value Reference Range Interpretation Comments POC-GLUCOSE METER 88 mg/dL 70-110 TESTED AT [place] [address] ([facility]) (test code = [facility] [address] 1538) BUN AND [id number] 05:59:00 Test Item Value Reference Range Interpretation Comments BLOOD UREA NITROGEN 30 mg/dL 7-21 H ([facility]) (test code = 354) CREATININE ([facility]) 0.81 mg/dL 0.57-1.25 (test code = 358) EGFR (BEAKER) (test 104 mL/min/1.73 ESTIM ATED GFR IS code = 1092) sq m NOT ACCURATE CREATININE CLEARANCE IN PREDICTING GLOMERULAR FILTRATION RATE . ESTIMATED GFR I S NOT APPLICABLE FOR DIALYSIS PATIEN TS. CBC W/PLT COUNT & AUTO [id number] 05:24:00 Test Item Value Reference Range Interpretation [...] PERCENT (BEAKER) (test code = 2801) POCT-GLUCOSE [id number] 20:50:00 Test Item Value Reference Range Interpretation Comments POC-GLUCOSE METER 260 mg/dL 70-110 H TESTED AT [facility] 67 (BEAKER) (test code = [facility]rio [facility] 1538) 21378 POCT-GLUCOSE [id number] 17:30:00 Test Item Value Reference Range Interpretation Comments POC-GLUCOSE METER 208 mg/dL 70-110 H TESTED AT [place] [address] (BEAKER) (test code = [facility] Ciro [facility] 1538) 76713 POCT-GLUCOSE [id number] 12:51:00 Test Item Value Reference Range Interpretation Comments POC-GLUCOSE METER 125 mg/dL 70-110 H TESTED AT [place] [address] (BEAKER) (test code = [facility] 1538) 50977 BASIC METABOLIC [id number] 12:22:00 Test Item Value Reference Range Interpretation [...] PATIEN TS. CBC W/PLT COUNT & AUTO [id number] 12:07:00 Test Item Value Reference Range Interpretation [...] PERCENT (BEAKER) (test code = 2801) POCT-GLUCOSE [id number] 11:57:00 Test Item Value Reference Range Interpretation Comments POC-GLUCOSE METER 59 mg/dL 70-110 L Will Repea t Test/TESTED (BEAKER) (test code = AT [facility] 67[address] [facility] 1538) [facility] 7703 0 RAD, CHEST, 1 VIEW, NON [id number] 11:31:00Reason for exam:->interval change in upper lobe [...] MDReport Verified Date/Time: 06/26/2018 11:31:01 Reading Location: [address] Ortho Consult Reading Room RAD, ABDOMEN/KUB, 1 VIEW [id number] 11:31:00Reason for exam:->assess for stool burdenShould this [...] MDReport Verified Date/Time: 06/26/2018 11:31:01 Reading Location: [facility] B1 [id number] Ortho Consult Reading Room POCT-GLUCOSE [id number] 08:23:00 Test Item Value Reference Range Interpretation Comments POC-GLUCOSE METER 109 mg/dL 70-110 TESTED AT [place] [address] ([facility]) (test code = [facility] [employer] [place] 1538) [address] LACTIC ACID, VENOUS, WHOLE [id number] 06:39:00 Test Item Value Reference Range Interpretation Comments LACTATE BLOOD VENOUS (2) ([facility]) 1.1 mmol/L 0.5-2.2 (test code = 2872) Effective 02/26/2016: Units/Reference Range ChangeNew: 0.5-2.2 mmol/L Previous: 5- 20 mg/dLBUN AND [id number] 06:08:00 Test Item Value Reference Range Interpretation Comments BLOOD UREA NITROGEN 25 mg/dL 7-21 H ([facility]) (test code = 354) CREATININE ([facility]) 0.70 mg/dL 0.57-1.25 (test code = 358) EGFR ([facility]) (test 124 mL/min/1.73 ESTIM ATED GFR IS code = 1092) sq m NOT ACCURATE CREATININE CLEARANCE IN PREDICTING GLOMERULAR FILTRATION RATE . ESTIMATED GFR I S NOT APPLICABLE FOR DIALYSIS PATIEN TS. POCT-GLUCOSE [id number] 05:27:00 Test Item Value Reference Range Interpretation Comments POC-GLUCOSE METER 120 mg/dL 70-110 H TESTED AT [facility] 6720 ([facility]) (test code = [address] [email or web address] [place] 1538) [address] POCT-GLUCOSE [id number] 21:14:00 Test Item Value Reference Range Interpretation Comments POC-GLUCOSE METER 216 mg/dL 70-110 H TESTED AT [facility] 6720 ([facility]) (test code = [address] [email or web address] [place] 1538) [address] POCT-GLUCOSE [id number] 17:08:00 Test Item Value Reference Range Interpretation Comments POC-GLUCOSE METER 197 mg/dL 70-110 H TESTED AT [place] [address] ([facility]) (test code = PAUL Tanner [facility] 1538) 38184 POCT-GLUCOSE [id number] 11:51:00 Test Item Value Reference Range Interpretation Comments POC-GLUCOSE METER 160 mg/dL 70-110 H TESTED AT [place] [address] ([facility]) (test code = PAUL Tanner [facility] 1538) 93250 POCT-GLUCOSE [id number] 08:13:00 Test Item Value Reference Range Interpretation Comments POC-GLUCOSE METER 376 mg/dL 70-110 H Notified R Collin STAPLETON/TESTED ([facility]) (test code = AT [place] [address]) [facility] 7703 0 BUN AND [id number] 07:14:00 Test Item Value Reference Range Interpretation Comments BLOOD UREA NITROGEN 28 mg/dL 7-21 H ([facility]) (test code = 354) CREATININE ([facility]) 0.76 mg/dL 0.57-1.25 (test code = 358) EGFR ([facility]) (test 112 mL/min/1.73 ESTIM ATED GFR IS code = 1092) sq m NOT ACCURATE CREATININE CLEARANCE IN PREDICTING GLOMERULAR FILTRATION RATE . ESTIMATED GFR I S NOT APPLICABLE FOR DIALYSIS PATIEN TS. POCT-GLUCOSE [id number] 22:17:00 Test Item Value Reference Range Interpretation Comments POC-GLUCOSE METER 163 mg/dL 70-110 H TESTED AT [place] [address] ([facility]) (test code = PAUL Tanner [facility] 1538) [address]18 POCT-GLUCOSE [id number] 16:46:00 Test Item Value Reference Range Interpretation Comments POC-GLUCOSE METER 301 mg/dL 70-110 H TESTED AT [place] [address] ([facility]) (test code = PAUL Tanner [facility] 1538) 06116 POCT-GLUCOSE [id number] 12:12:00 Test Item Value Reference Range Interpretation Comments POC-GLUCOSE METER 400 mg/dL 70-110 HH Notified R Collin STAPLETON/TESTED ([facility]) (test code = AT [address] 153) [facility] 7703 0 POCT-GLUCOSE [id number] 07:42:00 Test Item Value Reference Range Interpretation Comments POC-GLUCOSE METER 65 mg/dL 70-110 L Notified R Collin STAPLETON/TESTED AT ([facility]) (test code = [facility] [address] [place] 1534) [place] [address] 0 BUN AND [id number] 06:26:00 Test Item Value Reference Range Interpretation Comments BLOOD UREA NITROGEN 27 mg/dL 7-21 H ([facility]) (test code = 354) CREATININE ([facility]) 0.70 mg/dL 0.57-1.25 (test code = 358) EGFR ([facility]) (test 124 mL/min/1.73 ESTIM ATED GFR IS code = 1092) sq m NOT ACCURATE CREATININE CLEARANCE IN PREDICTING GLOMERULAR FILTRATION RATE . ESTIMATED GFR I S NOT APPLICABLE FOR DIALYSIS PATIEN TS. CF RESPIRATORY [id number] 02:48:00 Test Item Value Reference Range Interpretation Comments CULTURE ([facility]) PSEUDOMONAS A 3+ Pseudomo viki (test code [...] = 25) Resistant <0 or >4 CULTURE ([facility]) PSEUDOMONAS A 3+ Pseudomo viki (test code [...] or >4 4+ Normal respiratory derick presentPOCT-GLUCOSE [id number] 21:45:00 Test Item Value Reference Range Interpretation Comments POC-GLUCOSE METER 153 mg/dL 70-110 H TESTED AT [place] [address] ([facility]) (test code = [facility] 1538) [address] POCT-GLUCOSE [id number] 17:25:00 Test Item Value Reference Range Interpretation Comments POC-GLUCOSE METER 237 mg/dL 70-110 H TESTED AT [place] [address] ([facility]) (test code = [facility] Ciro [facility] 1538) [address]67 POCT-GLUCOSE [id number] 11:39:00 Test Item Value Reference Range Interpretation Comments POC-GLUCOSE METER 126 mg/dL 70-110 H TESTED AT [place] [address] ([facility]) (test code = [facility] Ciro [facility] 1538) [address] BUN AND [id number] 07:39:00 Test Item Value Reference Range Interpretation Comments BLOOD UREA NITROGEN 33 mg/dL 7-21 H ([facility]) (test code = 354) CREATININE ([facility]) 0.84 mg/dL 0.57-1.25 (test code = 358) EGFR ([facility]) (test 100 mL/min/1.73 ESTIM ATED GFR IS code = 1092) sq m NOT ACCURATE CREATININE CLEARANCE IN PREDICTING GLOMERULAR FILTRATION RATE . ESTIMATED GFR I S NOT APPLICABLE FOR DIALYSIS PATIEN TS. POCT-GLUCOSE [id number] 07:30:00 Test Item Value Reference Range Interpretation Comments POC-GLUCOSE METER 424 mg/dL 70-110 HH Notified Ciro Polanco MD/TESTED ([facility]) (test code = AT [facility] [address] [place], [place] [address]) [facility] 7703 0 POCT-GLUCOSE [id number] 21:36:00 Test Item Value Reference Range Interpretation Comments POC-GLUCOSE METER 241 mg/dL 70-110 H TESTED AT [place] [address] ([facility]) (test code = PAUL Tanner [place] 581198) [address] POCT-GLUCOSE [id number] 17:03:00 Test Item Value Reference Range Interpretation Comments POC-GLUCOSE METER 405 mg/dL 70-110 HH Baby teste d Mother ID ([facility]) (test code = used/T ESTED AT [place] [address]) [address] [facility] [address] POCT-GLUCOSE [id number] 14:17:00 Test Item Value Reference Range Interpretation Comments POC-GLUCOSE METER 81 mg/dL 70-110 TESTED AT [place] [address] ([facility]) (test code = [facility] Ciro [facility] [address] 1538) HEMOGLOBIN [id number] 09:17:00 Test Item Value Reference Range Interpretation Comments HEMOGLOBIN A1C ([facility]) (test code = 13.9 % 4.3-6.1 H 368) POCT-GLUCOSE [id number] 07:56:00 Test Item Value Reference Range Interpretation Comments POC-GLUCOSE METER 226 mg/dL 70-110 H TESTED AT [place] [address] ([facility]) (test code = [facility] [place] [address]) [address] BUN AND [id number] 06:35:00 Test Item Value Reference Range Interpretation Comments BLOOD UREA NITROGEN 25 mg/dL 7-21 H ([facility]) (test code = 354) CREATININE ([facility]) 0.74 mg/dL 0.57-1.25 (test code = 358) EGFR ([facility]) (test 116 mL/min/1.73 ESTIM ATED GFR IS code = 1092) sq m NOT ACCURATE CREATININE CLEARANCE IN PREDICTING GLOMERULAR FILTRATION RATE . ESTIMATED GFR I S NOT APPLICABLE FOR DIALYSIS PATIEN TS. POCT-GLUCOSE [id number] 21:56:00 Test Item Value Reference Range Interpretation Comments POC-GLUCOSE METER 347 mg/dL 70-110 H Notified Ciro Polanco MD/TESTED ([facility]) (test code = AT [facility] [address] [place] [address] 1538) [place] [address] 0 POCT-GLUCOSE [id number] 17:05:00 Test Item Value Reference Range Interpretation Comments POC-GLUCOSE METER 163 mg/dL 70-110 H TESTED AT [place] [address] ([facility]) (test code = [facility] 1538) [address]291 POCT-GLUCOSE [id number] 12:36:00 Test Item Value Reference Range Interpretation Comments POC-GLUCOSE METER 124 mg/dL 70-110 H TESTED AT [place] [address] ([facility]) (test code = [facility] 1538) 21657 POCT-GLUCOSE [id number] 07:25:00 Test Item Value Reference Range Interpretation Comments POC-GLUCOSE METER 161 mg/dL 70-110 H TESTED AT [place] [address] ([facility]) (test code = [place] [address]3558) [address] BUN AND [id number] 03:23:00 Test Item Value Reference Range Interpretation Comments BLOOD UREA NITROGEN 23 mg/dL 7-21 H ([facility]) (test code = 354) CREATININE ([facility]) 0.75 mg/dL 0.57-1.25 (test code = 358) EGFR ([facility]) (test 114 mL/min/1.73 ESTIM ATED GFR IS code = 1092) sq m NOT ACCURATE CREATININE CLEARANCE IN PREDICTING GLOMERULAR FILTRATION RATE . ESTIMATED GFR I S NOT APPLICABLE FOR DIALYSIS PATIEN TS. POCT-GLUCOSE [id number] 21:35:00 Test Item Value Reference Range Interpretation Comments POC-GLUCOSE METER 126 mg/dL 70-110 H TESTED AT [place] [address] ([facility]) (test code = [facility] Ciro [facility] 1538) [address]04 POCT-GLUCOSE [id number] 17:43:00 Test Item Value Reference Range Interpretation Comments POC-GLUCOSE METER 229 mg/dL 70-110 H TESTED AT [place] [address] ([facility]) (test code = [facility] 1538) 8[address]69 POCT-GLUCOSE [id number] 13:02:00 Test Item Value Reference Range Interpretation Comments POC-GLUCOSE METER 155 mg/dL 70-110 H TESTED AT [place] [address] [facility] (test code = PAUL Tanner [facility] 1538) [address]98[address] POCT-GLUCOSE [id number] 09:12:00 Test Item Value Reference Range Interpretation Comments POC-GLUCOSE METER 252 mg/dL 70-110 H TESTED AT [place] [address] ([facility]) (test code = PAUL Tanner [facility] 1538) [address] POCT-GLUCOSE [id number] 08:38:00 Test Item Value Reference Range Interpretation Comments POC-GLUCOSE METER 58 mg/dL 70-110 L Notified R N MD/TESTED AT ([facility]) (test code = [place] 893828) [place] [address] 0 BLOOD [id number] 06:00:00 Test Item Value Reference Range Interpretation Comments CULTURE (BEAKER) (test No growth in 5 days code = 1095) BLOOD [id number] 06:00:00 Test Item Value Reference Range Interpretation Comments CULTURE (BEAKER) (test No growth in 5 days code = 1095) POCT-GLUCOSE [id number] 21:09:00 Test Item Value Reference Range Interpretation Comments POC-GLUCOSE METER 365 mg/dL 70-110 H Notified R N MD/TESTED ([facility]) (test code = AT [place] [address]) [place] [address] 0 POCT-GLUCOSE [id number] 18:57:00 Test Item Value Reference Range Interpretation Comments POC-GLUCOSE METER 395 mg/dL 70-110 H TESTED AT [place] [address] ([facility]) (test code = PAUL Tanner [place] 581198) [address] POCT-GLUCOSE [id number] 14:19:00 Test Item Value Reference Range Interpretation Comments POC-GLUCOSE METER 387 mg/dL 70-110 H Notified R N MD/TESTED ([facility]) (test code = AT [place] [address]) [place] [address] 0 SPUTUM CULTURE + GRAM [id number] 09:38:00 Test Item Value Reference Range Interpretation Comments CULTURE (BEAKER) (test See comment code = 1095) GRAM STAIN RESULT 1+ WBCs (BEAKER) (test code = 1123) GRAM STAIN RESULT 0-5 epithelial cells (BEAKER) (test code = 61899) GRAM STAIN RESULT No organisms seen (BEAKER) (test code = 332521) Please refer to CF respiratory culture for results. Charges for this culture and gram stain are credited.POCT-GLUCOSE [id number] 09:12:00 Test Item Value Reference Range Interpretation Comments POC-GLUCOSE METER 41 mg/dL 70-110 L Baby teste d Mother ID (BEAKER) (test code = used/T ESTED AT [facility] 1538) [address] [place] [id number] BASIC METABOLIC [id number] 05:17:00 Test Item Value Reference Range Interpretation [...] NOT APPLICABLE FOR DIALYSIS PATIEN TS. POCT-GLUCOSE [id number] 22:15:00 Test Item Value Reference Range Interpretation Comments POC-GLUCOSE METER 329 mg/dL 70-110 H Notified R N MD/TESTED (BEAKER) (test code = AT [facility] [address] [address]) [facility] [address] 0 POCT-GLUCOSE [id number] 20:47:00 Test Item Value Reference Range Interpretation Comments POC-GLUCOSE METER 432 mg/dL 70-110 HH Notified R N MD/TESTED (BEAKER) (test code = AT [facility] [address] [address]) [facility] 7703 0 POCT-GLUCOSE [id number] 18:31:00 Test Item Value Reference Range Interpretation Comments POC-GLUCOSE METER 296 mg/dL 70-110 H TESTED AT [place] [id number] [facility] (test code = PAUL Tanner [facility] 1538) [id number] POCT-GLUCOSE [id number] 18:08:00 Test Item Value Reference Range Interpretation Comments POC-GLUCOSE METER 198 mg/dL 70-110 H TESTED AT [place] [address] [facility] (test code = PAUL Tanner [facility] 1538) [address] POCT-GLUCOSE [id number] 18:08:00 Test Item Value Reference Range Interpretation Comments POC-GLUCOSE METER 46 mg/dL 70-110 L TESTED AT [place] [address] (BEAKER) (test code = PAUL Tanner [facility] [address] 1538) POCT-GLUCOSE [id number] 12:42:00 Test Item Value Reference Range Interpretation Comments POC-GLUCOSE METER 71 mg/dL 70-110 TESTED AT [place] [address] ([facility]) (test code = PAUL Tanner [facility] [address] 1538) TROPONIN [id number] 10:01:00 Test Item Value Reference Range Interpretation [...] acute neurological disease, and persistent tachyarrhythmia.BASIC METABOLIC [id number] 09:53:00 Test Item Value Reference Range Interpretation [...] 358) GLUCOSE RANDOM 397 mg/dL 70-105 H [facility] (test code = 652) CALCIUM (BEAKER) 8.8 mg/dL 8.4-10.2 (test code = 697) EGFR (BEAKER) (test 100 mL/min/1.73 ESTIM ATED GFR IS code = 1092) sq m NOT ACCURATE CREATININE CLEARANCE IN PREDICTING GLOMERULAR FILTRATION RATE . ESTIMATED GFR I S NOT APPLICABLE FOR DIALYSIS PATIEN TS. POCT-GLUCOSE [id number] 08:49:00 Test Item Value Reference Range Interpretation Comments POC-GLUCOSE METER 168 mg/dL 70-110 H TESTED AT [facility] 67 ([facility]) (test code = 9158 [email or web address] [place] 1538) [address] POCT-GLUCOSE [id number] 20:59:00 Test Item Value Reference Range Interpretation Comments POC-GLUCOSE METER 218 mg/dL 70-110 H TESTED AT [place] [address] ([facility]) (test code = 9158 [email or web address] [place] 1538) [address] POCT-GLUCOSE [id number] 17:20:00 Test Item Value Reference Range Interpretation Comments POC-GLUCOSE METER 259 mg/dL 70-110 H TESTED AT [place] [address] ([facility]) (test code = [address] [email or web address] [place] 1538) [address] POCT-GLUCOSE [id number] 15:10:00 Test Item Value Reference Range Interpretation Comments POC-GLUCOSE METER 263 mg/dL 70-110 H TESTED AT [place] [address] ([facility]) (test code = 9[address] [email or web address] [place] 1538) 64139 POCT-GLUCOSE [id number] 08:12:00 Test Item Value Reference Range Interpretation Comments POC-GLUCOSE METER 126 mg/dL 70-110 H TESTED AT [place] [address] ([facility]) (test code = 9[address] [email or web address] [place] 1538) [address] BASIC METABOLIC [id number] 06:51:00 Test Item Value Reference Range Interpretation Comments SODIUM (BEAKER) 139 meq/L 136-145 (test code = 381) POTASSIUM (BEAKER) 4.3 meq/L 3.5-5.1 (test code = 379) CHLORIDE (BEAKER) 102 meq/L 98-107 (test code = 382) CO2 (BEAKER) (test 30 meq/L 22-29 H code = 355) BLOOD UREA NITROGEN 17 mg/dL 7-21 ([facility]) (test code = 354) CREATININE ([facility]) 0.74 mg/dL 0.57-1.25 (test code = 358) GLUCOSE RANDOM 184 mg/dL 70-105 H ([facility]) (test code = 652) CALCIUM ([facility]) 8.7 mg/dL 8.4-10.2 (test code = 697) EGFR ([facility]) (test 116 mL/min/1.73 ESTIM ATED GFR IS code = 1092) sq m NOT ACCURATE CREATININE CLEARANCE IN PREDICTING GLOMERULAR FILTRATION RATE . ESTIMATED GFR I S NOT APPLICABLE FOR DIALYSIS PATIEN TS. POCT-GLUCOSE [id number] 21:02:00 Test Item Value Reference Range Interpretation Comments POC-GLUCOSE METER 192 mg/dL 70-110 H TESTED AT [place] [address] ([facility]) (test code = PAUL Ciro [place] 581198) [address] POCT-GLUCOSE [id number] 16:18:00 Test Item Value Reference Range Interpretation Comments POC-GLUCOSE METER 199 mg/dL 70-110 H TESTED AT [place] [address] ([facility]) (test code = NAOMITAYO Tanner [facility] 1538) 05689 POCT-GLUCOSE [id number] 14:34:00 Test Item Value Reference Range Interpretation Comments POC-GLUCOSE METER 332 mg/dL 70-110 H TESTED AT [place] [address] ([facility]) (test code = NAOMIVT Ciro [facility] 1538) 0[address]20 POCT-GLUCOSE [id number] 11:37:00 Test Item Value Reference Range Interpretation Comments POC-GLUCOSE METER 305 mg/dL 70-110 H Notified Ciro Polanco MD/TESTED ([facility]) (test code = AT [place] 904508) [facility] 7703 0 POCT-GLUCOSE [id number] 10:22:00 Test Item Value Reference Range Interpretation Comments POC-GLUCOSE METER 322 mg/dL 70-110 H Notified Ciro Polanco MD/TESTED ([facility]) (test code = AT [place] 904508) [facility] 7703 0 BASIC METABOLIC [id number] 09:42:00 Test Item Value Reference Range Interpretation Comments SODIUM ([facility]) 135 meq/L 136-145 L (test code = [...] NOT APPLICABLE FOR DIALYSIS PATIEN TS. POCT-GLUCOSE [id number] 09:24:00 Test Item Value Reference Range Interpretation Comments POC-GLUCOSE METER 169 mg/dL 70-110 H TESTED AT [place] [address] ([facility]) (test code = [facility] 1538) 65357 POCT-GLUCOSE [id number] 08:27:00 Test Item Value Reference Range Interpretation Comments POC-GLUCOSE METER 176 mg/dL 70-110 H TESTED AT [place] [address] ([facility]) (test code = [facility] 1538) 10265 POCT-GLUCOSE [id number] 06:58:00 Test Item Value Reference Range Interpretation Comments POC-GLUCOSE METER 214 mg/dL 70-110 H TESTED AT [place] [address] ([facility]) (test code = [facility] 1538) 07119 RESPIRATORY PANEL [id number] 06:36:00 Test Item Value Reference Range Interpretation [...] decisions. This sample was tested at the [facility] using the [employer] Respiratory Panel. It is FDA cleared and has been verified and approved by the [facility] for clinical use on nasal swab specimens. It is not FDA-cleared for use on bronchial wash/lavage samples. However, for this sample type, validation was performed and test characteristics were determined and approved, by [facility] for clinical use under the Clinical Laboratory Improvement Amendments (CLIA) of 1988 requirements. Therefore, FDA clearance isnot required. This laboratory is CLIA- certified and [employer] [place] [employer] (CAP)-accredited to perform high complexity testing.Other viruses and bacteria not targeted by this PCR panel cannotbe excluded; therefore clinical correlation and follow up of serology, culture results, and other molecular studies is required. The results are not intended to be used as the sole means for clinical diagnosis or patient management decisions. This sample was tested at the [facility] using the [employer] Respiratory Panel. It is FDA cleared and has been verified and approved by the [facility] for clinical use on nasal swab specimens. It is not FDA-cleared for use on bronchial wash/lavage samples. However, for this sample type, validationwas performed and test characteristics were determined and approved, by [facility] for clinical use under the Clinical Laboratory Improvement Amendments (CLIA) of 1988 requirements. Therefore, FDA clearance is not required. This laboratory is CLIA-certified and [employer] [place] [employer] (CAP)-accredited to perform high complexity testing.POCT-GLUCOSE [id number] 05:59:00 Test Item Value Reference Range Interpretation Comments POC-GLUCOSE METER 214 mg/dL 70-110 H TESTED AT [facility] 6720 (BEAKER) (test code = PAUL Tanner [facility] 1538) 38[address] [id number] 05:19:00 Test Item Value Reference Range Interpretation Comments MAGNESIUM (BEAKER) (test code = 1.7 mg/dL 1.6-2.6 627) If last glucose was less than 500, may do bedside glucose instead of serum glucose.[id number] 05:19:00 Test Item Value Reference Range Interpretation Comments GLUCOSE RANDOM (BEAKER) (test code 265 mg/dL 70-105 H = 652) If last glucose was less than 500, may do bedside glucose instead of serum glucose.BASIC METABOLIC [id number] 05:19:00 Test Item Value Reference Range Interpretation Comments SODIUM (BEAKER) 133 meq/L 136-145 L (test code = 381) POTASSIUM (BEAKER) 4.4 meq/L 3.5-5.1 (test code = 379) CHLORIDE (BEAKER) 97 meq/L 98-107 L (test code = 382) CO2 (BEAKER) (test 30 meq/L 22-29 H code = 355) BLOOD UREA NITROGEN 14 mg/dL 7-21 (AKER) (test code = 354) CREATININE (BEAKER) 0.71 mg/dL 0.57-1.25 (test code = 358) GLUCOSE RANDOM 265 mg/dL 70-105 H (BEAKER) (test code = 652) CALCIUM (BEAKER) 8.8 mg/dL 8.4-10.2 (test code = 697) EGFR ([facility]) (test 122 mL/min/1.73 ESTIM ATED GFR IS code = 1092) sq m NOT ACCURATE CREATININE CLEARANCE IN PREDICTING GLOMERULAR FILTRATION RATE . ESTIMATED GFR I S NOT APPLICABLE FOR DIALYSIS PATIEN TS. If last glucose was less than 500, may do bedside glucose instead of serum glucose.POCT-GLUCOSE [id number] 04:46:00 Test Item Value Reference Range Interpretation Comments POC-GLUCOSE METER 272 mg/dL 70-110 H TESTED AT [place] [address] ([facility]) (test code = [facility] Ciro [facility] 1538) 0[address]14 POCT-GLUCOSE [id number] 03:44:00 Test Item Value Reference Range Interpretation Comments POC-GLUCOSE METER 326 mg/dL 70-110 H TESTED AT [place] [address] ([facility]) (test code = [facility] 1538) 01697 POCT-GLUCOSE [id number] 02:12:00 Test Item Value Reference Range Interpretation Comments POC-GLUCOSE METER 217 mg/dL 70-110 H TESTED AT [place] [address] ([facility]) (test code = [facility] 1538) [address]659 [id number] 02:02:00 Test Item Value Reference Range Interpretation Comments POTASSIUM (BEAKER) (test code = 3.9 meq/L 3.5-5.1 379) If last glucose was less than 500, may do bedside glucose instead of serum glucose.[id number] 02:02:00 Test Item Value Reference Range Interpretation Comments GLUCOSE RANDOM (BEAKER) (test code 122 mg/dL 70-105 H = 652) If last glucose was less than 500, may do bedside glucose instead of serum glucose.BASIC METABOLIC [id number] 02:02:00 Test Item Value Reference Range Interpretation [...] do bedside glucose instead of serum glucose.POCT-GLUCOSE [id number] 01:12:00 Test Item Value Reference Range Interpretation Comments POC-GLUCOSE METER 106 mg/dL 70-110 TESTED AT [place] [address] ([facility]) (test code = [facility] 1538) 91832 POCT-GLUCOSE [id number] 00:39:00 Test Item Value Reference Range Interpretation Comments POC-GLUCOSE METER 51 mg/dL 70-110 L TESTED AT [place] [address] ([facility]) (test code = [facility] [address] 1538) POCT-GLUCOSE [id number] 00:30:00 Test Item Value Reference Range Interpretation Comments POC-GLUCOSE METER 51 mg/dL 70-110 L TESTED AT [place] [address] ([facility]) (test code = [facility] [address] 1538) [id number] 22:06:00 Test Item Value Reference Range Interpretation Comments POTASSIUM (BEAKER) (test code = 3.8 meq/L 3.5-5.1 379) If last glucose was less than 500, may do bedside glucose instead of serum glucose.[id number] 22:06:00 Test Item Value Reference Range Interpretation Comments GLUCOSE RANDOM (BEAKER) (test code 311 mg/dL 70-105 H = 652) If last glucose was less than 500, may do bedside glucose instead of serum glucose.KETONE, [id number] 22:03:00 Test Item Value Reference Range Interpretation Comments KETONES, BLOOD (BEAKER) (test code 0.1 mmol/L <0.4 = 1103) POCT-GLUCOSE [id number] 21:52:00 Test Item Value Reference Range Interpretation Comments POC-GLUCOSE METER 403 mg/dL 70-110 HH Notified R N or MD ([facility]) (test code = Patien t refused repeat 1537) test/TESTED AT [address] [address] BASIC METABOLIC [id number] 19:28:00 Test Item Value Reference Range Interpretation [...] NOT APPLICABLE FOR DIALYSIS PATIEN TS. POCT-GLUCOSE [id number] 17:51:00 Test Item Value Reference Range Interpretation Comments POC-GLUCOSE METER > mg/dL 70-110 HH OUTSIDE ME ASURING (BEAKER) (test code RANGETES MAGDALENO AT [place] [address] = 1538) [facility] [address] POCT-GLUCOSE [id number] 12:17:00 Test Item Value Reference Range Interpretation Comments POC-GLUCOSE METER > mg/dL 70-110 HH OUTSIDE ME ASURING (BEAKER) (test code RANGENot ified RN or MD = 0344) Patient refused repeat test/TESTED AT [address] [place] [address] URINALYSIS W/ [id number] 10:06:00 Test Item Value Reference Range Interpretation [...] 516) SOURCE(BEAKER) (test code = 2795) POCT-GLUCOSE [id number] 07:31:00 Test Item Value Reference Range Interpretation Comments POC-GLUCOSE METER 365 mg/dL 70-110 H TESTED AT [place] [address] (BEAKER) (test code = [facility] 1538) [address] RAD, CHEST, 1 VIEW, NON [id number] 00:14:00Reason for exam:->SHORTNESS OF BREATHReason for exam:->COUGHIs [...] chest port is in place. Impression: Stable, chronic-appearingchanges consistent with cystic fibrosis. Superimposed acute infection should be excluded clinically.Signed: Sydney Crump MDReport Verified Date/Time: 06/15/2018 00:14:15 Reading Location: [address] Reading Room TROPONIN [id number] 00:11:00 Test Item Value Reference Range Interpretation [...] failure, acidosis, acute neurological disease, and persistent tachyarrhythmia.[id number] 00:04:00 Test Item Value Reference Range Interpretation Comments MAGNESIUM (BEAKER) (test code = 1.5 mg/dL 1.6-2.6 L 627) BASIC METABOLIC [id number] 00:04:00 Test Item Value Reference Range Interpretation [...] PATIEN TS. CBC W/PLT COUNT & AUTO [id number] 23:42:00 Test Item Value Reference Range Interpretation [...] (BEAKER) (test code = 2801) POCT-LACTIC ACID, [id number] 23:36:00 Test Item Value Reference Range Interpretation Comments POC-LACTIC ACID, 1.0 mmol/L 0.9-1.7 TESTED AT [facility] 67[address] VENOUS (BEAKER) (test PAUL Ciro [place] code = 2805) [address] FUNGUS CULTURE + [id number] 11:24:00 Test Item Value Reference Range Interpretation Comments CULTURE (BEAKER) A 2+ [place] glabrata (test code = 1095) FUNGUS SMEAR [...] or >4 1+ Normal respiratory derick presentSPIN/CONCENTRATION [id number] 06:32:00 Test Item Value Reference Range Interpretation Comments CONCENTRATION CHARGED ([facility]) (test Done code = 2657) POCT-GLUCOSE [id number] 17:10:00 Test Item Value Reference Range Interpretation Comments POC-GLUCOSE METER 338 mg/dL 70-110 H TESTED AT [place] [address] ([facility]) (test code = PAUL Tanner [place] 1538) [address] POCT-GLUCOSE [id number] 12:26:00 Test Item Value Reference Range Interpretation Comments POC-GLUCOSE METER 127 mg/dL 70-110 H TESTED AT [place] [address] ([facility]) (test code = PAUL Tanner [place] 1538) [address] POCT-GLUCOSE [id number] 08:06:00 Test Item Value Reference Range Interpretation Comments POC-GLUCOSE METER 174 mg/dL 70-110 H TESTED AT [place] [address] ([facility]) (test code = NAOMINE R [place] 1538) [address] POCT-GLUCOSE [id number] 21:28:00 Test Item Value Reference Range Interpretation Comments POC-GLUCOSE METER 205 mg/dL 70-110 H TESTED AT [place] [address] ([facility]) (test code = PAUL R [place] 1538) [address] POCT-GLUCOSE [id number] 17:44:00 Test Item Value Reference Range Interpretation Comments POC-GLUCOSE METER 229 mg/dL 70-110 H TESTED AT [place] [address] ([facility]) (test code = PAUL Tanner [facility] 1538) 12517 POCT-GLUCOSE [id number] 12:08:00 Test Item Value Reference Range Interpretation Comments POC-GLUCOSE METER 131 mg/dL 70-110 H TESTED AT [facility] 6720 (SIMI) (test code = PAUL [place] 1538) [address] RAD, ABDOMEN/KUB, 1 VIEW [id number] 10:55:00Reason for exam:->evaluate stool burden, abdominal distention, cf patientShould this be performedat the bedside?->NoFINAL REPORT Two abdomen images compared to February 25, 2018 Discussion: Nonspecificbowel gas pattern with moderate retained feces. No evidence of bowel obstruction. No evidence of free intraperitoneal air. Regional bones are unremarkable. Signed: Flip Choe Verified Date/Time: 04/19/2018 10:55:54 Reading Location: [facility] Reading Room Electronically signedby: FLIP CHOE M.D. on 04/19/2018 10:55 AMU/S, ABDOMINAL, [id number] 08:54:00Abdomen limited area? Add comment if clarification is needed.->LiverReason for exam:->abdominal distention, cf patientShould this be performed at the bedside?->NoFINAL REPORT Ultrasound of the Right Upper Quadrant of the Abdomen Clinical History: abdominal distention, cf patient Discussion: Sonographic evaluation of the right upper quadrantof the abdomen is performed. Correlation is made with CT of chest dated June 11, 2015. Liver: 15.3cm in length at the right midclavicular line. Normal echogenicity. No lesion is identified by ultrasound. Main portal vein diameter 1.2 cm. Biliary tree: Common duct 5 mm. No intrahepatic biliary dilata tion. Gallbladder: No shadowing calculus/calculi. No wall thickening. No pericholecystic fluid. Negative sonographic Isbell's sign. Pancreas: Partially visualized, it is fatty replaced. Ascites: None seen. Right kidney: 10.6 x 4.4 x 5.9 cm. Normal cortical echogenicity. No mass. No shadowing calculus.No hydronephrosis. IVC/Aorta: Segments partially seen. Unremarkable. Impression: Fatty replacement of pancreas, otherwise unremarkable exam. Signed: Everardo Castellanos MDReport Verified Date/Time: 04/19/2018 08:54:16 Reading Location: [facility] [id number] Ultrasound Reading Room POCT-GLUCOSE [id number] 08:18:00 Test Item Value Reference Range Interpretation Comments POC-GLUCOSE METER 105 mg/dL 70-110 TESTED AT [place] [address] ([facility]) (test code = [facility] 1538) 93669 POCT-GLUCOSE [id number] 08:06:00 Test Item Value Reference Range Interpretation Comments POC-GLUCOSE METER 74 mg/dL 70-110 TESTED AT [place] [address] ([facility]) (test code = [facility] 64778 1538) BASIC METABOLIC [id number] 06:31:00 Test Item Value Reference Range Interpretation [...] NOT APPLICABLE FOR DIALYSIS PATIEN TS. POCT-GLUCOSE [id number] 21:28:00 Test Item Value Reference Range Interpretation Comments POC-GLUCOSE METER 63 mg/dL 70-110 L Notified R Collin STAPLETON/TESTED AT ([facility]) (test code = [address] 1538) [place] [address] POCT-GLUCOSE [id number] 17:32:00 Test Item Value Reference Range Interpretation Comments POC-GLUCOSE METER 217 mg/dL 70-110 H TESTED AT [facility] 6720 ([facility]) (test code = PAUL Tanner [facility] 1538) 12001 POCT-GLUCOSE [id number] 16:55:00 Test Item Value Reference Range Interpretation Comments POC-GLUCOSE METER 75 mg/dL 70-110 TESTED AT [facility] 6720 ([facility]) (test code = PAUL Tanner [facility] [address] 1538) BASIC METABOLIC [id number] 12:35:00 Test Item Value Reference Range Interpretation [...] NOT APPLICABLE FOR DIALYSIS PATIEN TS. POCT-GLUCOSE [id number] 12:06:00 Test Item Value Reference Range Interpretation Comments POC-GLUCOSE METER 43 mg/dL 70-110 L Notified R Collin STAPLETON/TESTED AT ([facility]) (test code = [address] 1538) [facility] 7703 0 [id number] 12:01:00 Test Item Value Reference Range Interpretation Comments MAGNESIUM (BEAKER) (test code = 1.8 mg/dL 1.6-2.6 627) CBC W/PLT COUNT & AUTO [id number] 11:18:00 Test Item Value Reference Range Interpretation [...] 417) IMMATURE GRANULOCYTES-RELATIVE 1 % 0-1 [facility]CENT [facility] (test code = 2801) POCT-GLUCOSE [id number] 07:31:00 Test Item Value Reference Range Interpretation Comments POC-GLUCOSE METER 275 mg/dL 70-110 H TESTED AT [place] [address] ([facility]) (test code = PAUL Tanner [facility] 1538) [address] POCT-GLUCOSE [id number] 22:01:00 Test Item Value Reference Range Interpretation Comments POC-GLUCOSE METER 109 mg/dL 70-110 TESTED AT [place] [address] ([facility]) (test code = PAUL Tanner [facility] 1538) [address] POCT-GLUCOSE [id number] 21:11:00 Test Item Value Reference Range Interpretation Comments POC-GLUCOSE METER 61 mg/dL 70-110 L Notified Ciro Polanco MD/TESTED AT ([facility]) (test code = [address] 1538) [facility] 7703 0 POCT-GLUCOSE [id number] 17:41:00 Test Item Value Reference Range Interpretation Comments POC-GLUCOSE METER 68 mg/dL 70-110 L TESTED AT [place] [address] ([facility]) (test code = [facility] Ciro [facility] [address] 1538) POCT-GLUCOSE [id number] 16:51:00 Test Item Value Reference Range Interpretation Comments POC-GLUCOSE METER 74 mg/dL 70-110 TESTED AT [place] [address] ([facility]) (test code = [facility] [address] 1538) URINALYSIS W/ [id number] 14:57:00 Test Item Value Reference Range Interpretation [...] 516) SOURCE(BEAKER) (test code = Urine, Voided 0533) [id number] 14:23:00 Test Item Value Reference Range Interpretation Comments MAGNESIUM (BEAKER) (test code = 0.9 mg/dL 1.6-2.6 LL 627) BASIC METABOLIC [id number] 11:55:00 Test Item Value Reference Range Interpretation [...] = 1092) sq m ACCURATE CREATININE JI JEREZ IN PREDICTING GLOMERULAR FILTRATION RATE . ESTIMATED GFR I S NOT APPLICABLE FOR DIALYSIS PATIEN TS. CBC W/PLT COUNT & AUTO [id number] 11:34:00 Test Item Value Reference Range Interpretation [...] PERCENT (BEAKER) (test code = 2801) POCT-GLUCOSE [id number] 08:27:00 Test Item Value Reference Range Interpretation Comments POC-GLUCOSE METER 128 mg/dL 70-110 H TESTED AT [place] [address] ([facility]) (test code = PAUL Tanner [facility] 1538) [address] POCT-GLUCOSE [id number] 21:14:00 Test Item Value Reference Range Interpretation Comments POC-GLUCOSE METER 241 mg/dL 70-110 H TESTED AT [place] [address] ([facility]) (test code = PAUL Tanner [facility] 1538) [address] POCT-GLUCOSE [id number] 18:51:00 Test Item Value Reference Range Interpretation Comments POC-GLUCOSE METER 140 mg/dL 70-110 H TESTED AT [place] [address] ([facility]) (test code = PAUL Tanner [facility] 1538) [address] POCT-GLUCOSE [id number] 18:06:00 Test Item Value Reference Range Interpretation Comments POC-GLUCOSE METER 31 mg/dL 70-110 LL TESTED AT [place] [address] ([facility]) (test code = PAUL Tanner [facility] [address] 1538) POCT-GLUCOSE [id number] 12:58:00 Test Item Value Reference Range Interpretation Comments POC-GLUCOSE METER 72 mg/dL 70-110 TESTED AT [place] [address] ([facility]) (test code = PAUL Tanner [facility] [address] 1538) POCT-GLUCOSE [id number] 08:21:00 Test Item Value Reference Range Interpretation Comments POC-GLUCOSE METER 162 mg/dL 70-110 H TESTED AT [place] [address] ([facility]) (test code = PAUL Tanner [facility] 1538) [address] [id number] 06:55:00 Test Item Value Reference Range Interpretation Comments BLOOD UREA NITROGEN ([facility]) (test 15 mg/dL 05-14 code = 354) [id number] 06:55:00 Test Item Value Reference Range Interpretation Comments CREATININE ([facility]) 0.97 mg/dL 0.57-1.25 (test code = 358) EGFR ([facility]) (test 85 mL/min/1.73 ESTIMA MAGDALENO GFR IS code = 1092) sq m NOT ACCURATE CREATININE CLEARANCE IN PREDICTING GLOMERULAR FILTRATION RATE . ESTIMATED GFR I S NOT APPLICABLE FOR DIALYSIS PATIEN TS. POCT-GLUCOSE [id number] 21:28:00 Test Item Value Reference Range Interpretation Comments POC-GLUCOSE METER 141 mg/dL 70-110 H TESTED AT [place] [address] (BEAKER) (test code = [facility] 1538) [address] POCT-GLUCOSE [id number] 17:29:00 Test Item Value Reference Range Interpretation Comments POC-GLUCOSE METER 122 mg/dL 70-110 H TESTED AT [place] [address] (BEAKER) (test code = [facility] 1538) [id number] POCT-GLUCOSE [id number] 11:22:00 Test Item Value Reference Range Interpretation Comments POC-GLUCOSE METER 66 mg/dL 70-110 L TESTED AT [place] [address] (BEAKER) (test code = [facility] [address] 1538) POCT-GLUCOSE [id number] 11:22:00 Test Item Value Reference Range Interpretation Comments POC-GLUCOSE METER 224 mg/dL 70-110 H [facility] [place] [address] [facility] (test code = [facility] 1538) [address] COMPREHENSIVE METABOLIC [id number] 07:22:00 Test Item Value Reference Range Interpretation [...] PATIEN TS. CBC W/PLT COUNT & AUTO [id number] 06:59:00 Test Item Value Reference Range Interpretation [...] PERCENT (AKER) (test code = 2801) POCT-GLUCOSE [id number] 23:01:00 Test Item Value Reference Range Interpretation Comments POC-GLUCOSE METER 411 mg/dL 70-110 HH Notified R Collin STAPLETON/TESTED ([facility]) (test code = AT [address] 1538) [facility] 7703 0 POCT-GLUCOSE [id number] 18:29:00 Test Item Value Reference Range Interpretation Comments POC-GLUCOSE METER 216 mg/dL 70-110 H TESTED AT [place] [address] ([facility]) (test code = PAUL Tanner [place] 581198) [address] POCT-GLUCOSE [id number] 12:41:00 Test Item Value Reference Range Interpretation Comments POC-GLUCOSE METER > mg/dL 70-110 HH OUTSIDE AL ASURING ([facility]) (test code RANGETES MAGDALENO AT [place] [address] = 1538) [facility] [address] HEMOGLOBIN [id number] 09:11:00 Test Item Value Reference Range Interpretation Comments HEMOGLOBIN A1C ([facility]) (test code = 13.8 % 4.3-6.1 H 368) POCT-GLUCOSE [id number] 08:12:00 Test Item Value Reference Range Interpretation Comments POC-GLUCOSE METER 72 mg/dL 70-110 TESTED AT [place] [address] ([facility]) (test code = PAUL Tanner [facility] [address] 1538) [id number] 06:33:00 Test Item Value Reference Range Interpretation Comments BLOOD UREA NITROGEN (AKER) (test 13 mg/dL 05-14 code = 354) [id number] 06:33:00 Test Item Value Reference Range Interpretation Comments CREATININE ([facility]) 1.39 mg/dL 0.57-1.25 H (test code = 358) EGFR (BEAKER) (test 56 mL/min/1.73 ESTIMA MAGDALENO GFR IS code = 1092) sq m NOT ACCURATE CREATININE CLEARANCE IN PREDICTING GLOMERULAR FILTRATION RATE . ESTIMATED GFR I S NOT APPLICABLE FOR DIALYSIS PATIEN TS. CBC W/PLT COUNT & AUTO [id number] 06:24:00 Test Item Value Reference Range Interpretation [...] PERCENT (BEAKER) (test code = 2801) POCT-GLUCOSE [id number] 02:09:00 Test Item Value Reference Range Interpretation Comments POC-GLUCOSE METER 260 mg/dL 70-110 H TESTED AT [facility] 6720 [facility] (test code = [place] 1538) [address] RAD, CHEST, 1 VIEW, NON [id number] 20:00:00Reason for exam:->CHEST PAINIs the patient ?->UnknownShould this be performed at the [facility]?->YesFINAL REPORT EXAMINATION: AP PORTABLE CHEST RADIOGRAPH CLINICAL INDICATION: Chest pain, history of cystic fibrosis IMPRESSION: Compared with February 18, 2018. A right-sided Port-A-Cath is again noted with the tip projecting over the right atrium. Bronchiectatic changes as well as scattered reticular and nodular opacities are again noted [...] MDReport Verified Date/Time: 04/13/2018 20:00:46 Reading Location: [address] Reading Room KETONE, [id number] 18:36:00 Test Item Value Reference Range Interpretation Comments KETONES, BLOOD (BEAKER) (test code 0.1 mmol/L <0.4 = 1103) BASIC METABOLIC [id number] 18:18:00 Test Item Value Reference Range Interpretation [...] PATIEN TS. CBC W/PLT COUNT & AUTO [id number] 18:02:00 Test Item Value Reference Range Interpretation [...] PERCENT (BEAKER) (test code = 2801) POCT-GLUCOSE [id number] 16:57:00 Test Item Value Reference Range Interpretation Comments POC-GLUCOSE METER 117 mg/dL 70-110 H TESTED AT [place] [address] ([facility]) (test code = PAUL Tanner [facility] 1538) [address] POCT-GLUCOSE [id number] 16:56:00 Test Item Value Reference Range Interpretation Comments POC-GLUCOSE METER 62 mg/dL 70-110 L Notified R Collin or ([facility]) (test code = Adelia t refused repeat 1538) test/TESTED AT [place] [address] [place] [address] POCT-GLUCOSE [id number] 12:23:00 Test Item Value Reference Range Interpretation Comments POC-GLUCOSE METER 81 mg/dL 70-110 TESTED AT [place] [address] ([facility]) (test code = PAUL Tanner [facility] [address] 1538) POCT-GLUCOSE [id number] 09:36:00 Test Item Value Reference Range Interpretation Comments POC-GLUCOSE METER 239 mg/dL 70-110 H TESTED AT [place] [address] ([facility]) (test code = PAUL Tanner [facility] 1538) [address] BUN AND [id number] 07:03:00 Test Item Value Reference Range Interpretation Comments BLOOD UREA NITROGEN 19 mg/dL 7-21 ([facility]) (test code = 354) CREATININE ([facility]) 0.71 mg/dL 0.57-1.25 (test code = 358) EGFR ([facility]) (test 122 mL/min/1.73 ESTIM ATED GFR IS code = 1092) sq m NOT ACCURATE CREATININE CLEARANCE IN PREDICTING GLOMERULAR FILTRATION RATE . ESTIMATED GFR I S NOT APPLICABLE FOR DIALYSIS PATIEN TS. POCT-GLUCOSE [id number] 17:46:00 Test Item Value Reference Range Interpretation Comments POC-GLUCOSE METER 147 mg/dL 70-110 H TESTED AT [place] [address] ([facility]) (test code = [facility] Ciro [facility] 1538) [address] POCT-GLUCOSE [id number] 13:26:00 Test Item Value Reference Range Interpretation Comments POC-GLUCOSE METER 105 mg/dL 70-110 TESTED AT [place] [address] ([facility]) (test code = [facility] Ciro [facility] 1538) [address] POCT-GLUCOSE [id number] 07:56:00 Test Item Value Reference Range Interpretation Comments POC-GLUCOSE METER 207 mg/dL 70-110 H TESTED AT [place] [address] ([facility]) (test code = [facility] Ciro [facility] 1538) [address] CBC W/PLT COUNT & AUTO [id number] 06:59:00 Test Item Value Reference Range Interpretation Comments WHITE BLOOD CELL COUNT ([facility]) 8.4 K/ L 3.5-10.5 (test code = 775) RED BLOOD CELL COUNT ([facility]) 3.67 M/ L 3.93-5.22 L (test code = 761) HEMOGLOBIN ([facility]) (test code = 9.7 GM/DL 11.2-15.7 L 410) HEMATOCRIT ([facility]) (test code = 32.9 % 34.1-44.9 L 411) MEAN CORPUSCULAR VOLUME ([facility]) 89.6 fL 79.4-94.8 (test code = 753) [...] (BEAKER) (test code = 2801) BUN AND [id number] 06:42:00 Test Item Value Reference Range Interpretation Comments BLOOD UREA NITROGEN 16 mg/dL 7-21 (BEAKER) (test code = 354) CREATININE (BEAKER) 0.67 mg/dL 0.57-1.25 (test code = 358) EGFR (BEAKER) (test 130 mL/min/1.73 ESTIM ATED GFR IS code = 1092) sq m NOT ACCURATE CREATININE CLEARANCE IN PREDICTING GLOMERULAR FILTRATION RATE . ESTIMATED GFR I S NOT APPLICABLE FOR DIALYSIS PATIEN TS. POCT-GLUCOSE [id number] 21:05:00 Test Item Value Reference Range Interpretation Comments POC-GLUCOSE METER 195 mg/dL 70-110 H TESTED AT [place] [address] ([facility]) (test code = PAUL Tanner [facility] 1538) [address] POCT-GLUCOSE [id number] 18:55:00 Test Item Value Reference Range Interpretation Comments POC-GLUCOSE METER 344 mg/dL 70-110 H TESTED AT [place] [address] ([facility]) (test code = PAUL Tanner [facility] 1538) [address] POCT-GLUCOSE [id number] 12:20:00 Test Item Value Reference Range Interpretation Comments POC-GLUCOSE METER 166 mg/dL 70-110 H TESTED AT [place] [address] ([facility]) (test code = PAUL Tanner [facility] 1538) [address] POCT-GLUCOSE [id number] 11:34:00 Test Item Value Reference Range Interpretation Comments POC-GLUCOSE METER 68 mg/dL 70-110 L Notified R Collin STAPLETON/TESTED AT ([facility]) (test code = [place] [address]3828) [facility] 7703 0 BUN AND [id number] 10:24:00 Test Item Value Reference Range Interpretation Comments BLOOD UREA NITROGEN 15 mg/dL 7-21 ([facility]) (test code = 354) CREATININE ([facility]) 0.64 mg/dL 0.57-1.25 (test code = 358) EGFR ([facility]) (test 137 mL/min/1.73 ESTIM ATED GFR IS code = 1092) sq m NOT ACCURATE CREATININE CLEARANCE IN PREDICTING GLOMERULAR FILTRATION RATE . ESTIMATED GFR I S NOT APPLICABLE FOR DIALYSIS PATIEN TS. POCT-GLUCOSE [id number] 07:58:00 Test Item Value Reference Range Interpretation Comments POC-GLUCOSE METER 218 mg/dL 70-110 H TESTED AT [place] [address] ([facility]) (test code = PAUL Tanner [facility] 1538) [address] POCT-GLUCOSE [id number] 22:10:00 Test Item Value Reference Range Interpretation Comments POC-GLUCOSE METER 140 mg/dL 70-110 H TESTED AT [place] [address] ([facility]) (test code = PAUL Tnaner [facility] 1538) [address] POCT-GLUCOSE [id number] 20:51:00 Test Item Value Reference Range Interpretation Comments POC-GLUCOSE METER 182 mg/dL 70-110 H TESTED AT [facility] 6720 ([facility]) (test code = PAUL Tanner [place] 1538) [address] POCT-GLUCOSE [id number] 12:49:00 Test Item Value Reference Range Interpretation Comments POC-GLUCOSE METER 81 mg/dL 70-110 TESTED AT [facility] 6720 ([facility]) (test code = [place] [address] 1538) POCT-GLUCOSE [id number] 08:20:00 Test Item Value Reference Range Interpretation Comments POC-GLUCOSE METER 362 mg/dL 70-110 H Notified R N or ([facility]) (test code = Patien t refused repeat 1538) test/TESTED AT [facility] [address] [facility] [place] [address] BUN AND [id number] 06:16:00 Test Item Value Reference Range Interpretation Comments BLOOD UREA NITROGEN 16 mg/dL 7-21 ([facility]) (test code = 354) CREATININE (AKER) 0.76 mg/dL 0.57-1.25 (test code = 358) EGFR ([facility]) (test 112 mL/min/1.73 ESTIM ATED GFR IS code = 1092) sq m NOT ACCURATE CREATININE CLEARANCE IN PREDICTING GLOMERULAR FILTRATION RATE . ESTIMATED GFR I S NOT APPLICABLE FOR DIALYSIS PATIEN TS. CBC W/PLT COUNT & AUTO [id number] 06:13:00 Test Item Value Reference Range Interpretation [...] PERCENT (BEAKER) (test code = 2801) POCT-GLUCOSE [id number] 21:45:00 Test Item Value Reference Range Interpretation Comments POC-GLUCOSE METER 226 mg/dL 70-110 H TESTED AT [place] [address] [facility] (test [facility] = [facility] 1538) [address] POCT-GLUCOSE [id number] 17:21:00 Test Item Value Reference Range Interpretation Comments POC-GLUCOSE METER 245 mg/dL 70-110 H TESTED AT [place] [address] ([facility]) (test code = [facility] 1538) [address] POCT-GLUCOSE [id number] 12:59:00 Test Item Value Reference Range Interpretation Comments POC-GLUCOSE METER 76 mg/dL 70-110 TESTED AT [place] [address] ([facility]) (test code = PAUL Tanner [facility] [address] 1538) POCT-GLUCOSE [id number] 08:21:00 Test Item Value Reference Range Interpretation Comments POC-GLUCOSE METER 88 mg/dL 70-110 TESTED AT [facility] 6720 ([facility]) (test code = [place] [address] 1538) BUN AND [id number] 05:56:00 Test Item Value Reference Range Interpretation [...] PATIEN TS. CBC W/PLT COUNT & AUTO [id number] 05:30:00 Test Item Value Reference Range Interpretation [...] PERCENT (BEAKER) (test code = 2801) POCT-GLUCOSE [id number] 21:20:00 Test Item Value Reference Range Interpretation Comments POC-GLUCOSE METER 211 mg/dL 70-110 H TESTED AT [place] [address] ([facility]) (test code = [facility] 1538) [address] POCT-GLUCOSE [id number] 17:25:00 Test Item Value Reference Range Interpretation Comments POC-GLUCOSE METER 152 mg/dL 70-110 H TESTED AT [place] [address] ([facility]) (test code = [facility] 1538) [address]447 POCT-GLUCOSE [id number] 13:32:00 Test Item Value Reference Range Interpretation Comments POC-GLUCOSE METER 81 mg/dL 70-110 TESTED AT [place] [address] ([facility]) (test code = [facility] [address] 1538) BUN AND [id number] 10:16:00 Test Item Value Reference Range Interpretation Comments BLOOD UREA NITROGEN 17 mg/dL 7-21 ([facility]) (test code = 354) CREATININE ([facility]) 0.72 mg/dL 0.57-1.25 (test code = 358) EGFR ([facility]) (test 120 mL/min/1.73 ESTIM ATED GFR IS code = 1092) sq m NOT ACCURATE CREATININE CLEARANCE IN PREDICTING GLOMERULAR FILTRATION RATE . ESTIMATED GFR I S NOT APPLICABLE FOR DIALYSIS PATIEN TS. CBC W/PLT COUNT & AUTO [id number] 09:23:00 Test Item Value Reference Range Interpretation [...] PERCENT (BEAKER) (test code = 2801) POCT-GLUCOSE [id number] 08:05:00 Test Item Value Reference Range Interpretation Comments POC-GLUCOSE METER 245 mg/dL 70-110 H TESTED AT [place] [address] ([facility]) (test code = PAUL Tanner [facility] 1538) [address] POCT-GLUCOSE [id number] 21:42:00 Test Item Value Reference Range Interpretation Comments POC-GLUCOSE METER 163 mg/dL 70-110 H TESTED AT [place] [address] ([facility]) (test code = PAUL Tanner [facility] 1538) [address] POCT-GLUCOSE [id number] 18:57:00 Test Item Value Reference Range Interpretation Comments POC-GLUCOSE METER 65 mg/dL 70-110 L Will Repea t Test/TESTED (BEAKER) (test code = AT [address] 1538) [facility] 7703 0 POCT-GLUCOSE [id number] 14:12:00 Test Item Value Reference Range Interpretation Comments POC-GLUCOSE METER 72 mg/dL 70-110 TESTED AT [place] [address] ([facility]) (test code = PAUL Tanner [facility] [address] 1538) POCT-GLUCOSE [id number] 10:46:00 Test Item Value Reference Range Interpretation Comments POC-GLUCOSE METER 361 mg/dL 70-110 H Will Repea t Test/TESTED (BEAKER) (test code = AT [place] [address]04508) [facility] 7703 0 BASIC METABOLIC [id number] 10:11:00 Test Item Value Reference Range Interpretation [...] PATIEN TS. CBC W/PLT COUNT & AUTO [id number] 09:22:00 Test Item Value Reference Range Interpretation [...] PERCENT (AKER) (test code = 2801) POCT-GLUCOSE [id number] 22:41:00 Test Item Value Reference Range Interpretation Comments POC-GLUCOSE METER 118 mg/dL 70-110 H TESTED AT [place] [address] ([facility]) (test code = PAUL Tanner [facility] 1538) 80[address] [id number] 17:38:00 Test Item Value Reference Range Interpretation Comments POTASSIUM ([facility]) (test code = 5.4 meq/L 3.5-5.1 H 379) POCT-GLUCOSE [id number] 17:31:00 Test Item Value Reference Range Interpretation Comments POC-GLUCOSE METER 111 mg/dL 70-110 H TESTED AT [place] [address] ([facility]) (test code = PAUL Tanner [facility] 1538) [address] POCT-GLUCOSE [id number] 12:16:00 Test Item Value Reference Range Interpretation Comments POC-GLUCOSE METER 186 mg/dL 70-110 H TESTED AT [place] [address] ([facility]) (test code = PAUL Tanner [facility] 1538) [address] POCT-GLUCOSE [id number] 09:29:00 Test Item Value Reference Range Interpretation Comments POC-GLUCOSE METER 159 mg/dL 70-110 H TESTED AT [place] [address] ([facility]) (test code = PAUL Tanner [facility] 1538) 299[address] POCT-GLUCOSE [id number] 08:59:00 Test Item Value Reference Range Interpretation Comments POC-GLUCOSE METER 29 mg/dL 70-110 LL Will Repea t Test/TESTED ([facility]) (test code = [place] [address] [place] 1538) [facility] 7703 0 POCT-GLUCOSE [id number] 06:52:00 Test Item Value Reference Range Interpretation Comments POC-GLUCOSE METER 492 mg/dL 70-110 HH Notified Ciro Polanco MD/TESTED (BEAKER) (test code = AT [facility] [address] [place] 1538) [facility] 7703 0 COMPREHENSIVE METABOLIC [id number] 06:27:00 Test Item Value Reference Range Interpretation [...] 0-0 (AKER) (test code = 413) POCT-GLUCOSE [id number] 17:54:00 Test Item Value Reference Range Interpretation Comments POC-GLUCOSE METER 386 mg/dL 70-110 H Notified R Collin or ([facility]) (test code = Adelia cooney refused repeat 1538) test/TESTED AT [place] [address] [place] [address] POCT-GLUCOSE [id number] 12:41:00 Test Item Value Reference Range Interpretation Comments POC-GLUCOSE METER 104 mg/dL 70-110 TESTED AT [place] [address] ([facility]) (test code = PAUL Tanner [place] 1538) [address] POCT-GLUCOSE [id number] 07:57:00 Test Item Value Reference Range Interpretation Comments POC-GLUCOSE METER 140 mg/dL 70-110 H TESTED AT [place] [address] ([facility]) (test code = PAUL Tanner [place] 1538) [address] BASIC METABOLIC [id number] 05:36:00 Test Item Value Reference Range Interpretation Comments SODIUM ([facility]) 138 meq/L 136-145 (test code = 381) [...] RED BLOOD CELLS 0 /100 WBC 0-0 ([facility]) (test code = 413) POCT-GLUCOSE [id number] 21:46:00 Test Item Value Reference Range Interpretation Comments POC-GLUCOSE METER 117 mg/dL 70-110 H TEST[facility] AT [place] [address] [facility] (test code = [facility] 1538) [address]67 POCT-GLUCOSE [id number] 17:44:00 Test Item Value Reference Range Interpretation Comments POC-GLUCOSE METER 142 mg/dL 70-110 H TESTED AT [place] [address] ([facility]) (test code = [facility] 1538) [address] POCT-GLUCOSE [id number] 12:49:00 Test Item Value Reference Range Interpretation Comments POC-GLUCOSE METER 420 mg/dL 70-110 HH TESTED AT [place] [address] ([facility]) (test code = [facility] 1538) [address]98[address] POCT-GLUCOSE [id number] 08:52:00 Test Item Value Reference Range Interpretation Comments POC-GLUCOSE METER 381 mg/dL 70-110 H TESTED AT [place] [address] ([facility]) (test code = [facility] 1538) [address] BASIC METABOLIC [id number] 05:59:00 Test Item Value Reference Range Interpretation [...] 0-0 (BEAKER) (test code = 413) POCT-GLUCOSE [id number] 23:16:00 Test Item Value Reference Range Interpretation Comments POC-GLUCOSE METER 146 mg/dL 70-110 H TESTED AT [place] [address] ([facility]) (test code = PAUL Tanner [facility] 1538) [address] POCT-GLUCOSE [id number] 19:07:00 Test Item Value Reference Range Interpretation Comments POC-GLUCOSE METER 268 mg/dL 70-110 H TESTED AT [place] [address] ([facility]) (test code = PAUL Tanner [facility] 1538) [address]75 POCT-GLUCOSE [id number] 15:33:00 Test Item Value Reference Range Interpretation Comments POC-GLUCOSE METER 288 mg/dL 70-110 H TESTED AT [place] [address] ([facility]) (test code = PAUL Tanner [facility] 1538) [address]97 POCT-GLUCOSE [id number] 15:17:00 Test Item Value Reference Range Interpretation Comments POC-GLUCOSE METER 79 mg/dL 70-110 TESTED AT [place] [address] ([facility]) (test code = PAUL Tanner [facility] [address] 1538) POCT-GLUCOSE [id number] 12:53:00 Test Item Value Reference Range Interpretation Comments POC-GLUCOSE METER 48 mg/dL 70-110 L Patient on insulin ([facility]) (test code = Drip/T ESTED AT [facility] 153) [address] [facility] [place] [address] RAD, ABDOMEN/KUB, 1 VIEW [id number] 08:30:00Reason for exam:->Monitor constipationFINAL REPORT Chest one view compared to February 23, 2018 Discussion: There is moderate retained feces overall similar in appearance. No evidence of bowel distention. No evidence of freeintraperitoneal air. No concerning calcification. Signed: Flip Choe Verified Date/Time: 0 02/25/2018 08:30:00 Reading Location: [facility] Reading Room POCT-GLUCOSE [id number] 08:15:00 Test Item Value Reference Range Interpretation Comments POC-GLUCOSE METER 83 mg/dL 70-110 TESTED AT [place] [id number] ([facility]) (test code = PAUL Tanner [facility] [address] 1538) CF RESPIRATORY [id number] 00:03:00 Test Item Value Reference Range Interpretation Comments CULTURE ([facility]) PSEUDOMONAS A 3+ Pseudomo viki (test code [...] or >4 3+ Normal respiratory derick presentPOCT-GLUCOSE [id number] 21:18:00 Test Item Value Reference Range Interpretation Comments POC-GLUCOSE METER 311 mg/dL 70-110 H TESTED AT [place] [address] ([facility]) (test code = PAUL Tanner [facility] 1538) [address] POCT-GLUCOSE [id number] 17:13:00 Test Item Value Reference Range Interpretation Comments POC-GLUCOSE METER 319 mg/dL 70-110 H TESTED AT [place] [address] ([facility]) (test code = PAUL Tanner [facility] 1538) [address] POCT-GLUCOSE [id number] 12:28:00 Test Item Value Reference Range Interpretation Comments POC-GLUCOSE METER 415 mg/dL 70-110 HH Notified R Collin STAPLETON/TESTED ([facility]) (test code = AT [address] 1538) [facility] 7703 0 BLOOD [id number] 06:00:00 Test Item Value Reference Range Interpretation Comments CULTURE ([facility]) (test No growth in 5 days code = 1095) BLOOD [id number] 06:00:00 Test Item Value Reference Range Interpretation Comments CULTURE (BEAKER) (test No growth in 5 days code = 1095) LACTIC ACID, VENOUS, WHOLE [id number] 05:46:00 Test Item Value Reference Range Interpretation Comments LACTATE BLOOD VENOUS (2) (BEAKER) 1.0 mmol/L 0.5-2.2 (test code = 2872) Effective 02/26/2016: Units/Reference Range ChangeNew: 0.5-2.2 mmol/L Previous: 5- 20 mg/dLBASIC METABOLIC [id number] 05:41:00 Test Item Value Reference Range Interpretation [...] PATIEN TS. CBC W/PLT COUNT & AUTO [id number] 05:27:00 Test Item Value Reference Range Interpretation [...] 0-1 H PERCENT (BEAKER) (test code = 2808) POCT-GLUCOSE [id number] 21:47:00 Test Item Value Reference Range Interpretation Comments POC-GLUCOSE METER 258 mg/dL 70-110 H TESTED AT [facility] 6720 (BEAKER) (test code = [place] 1538) [id number] POCT-GLUCOSE [id number] 17:44:00 Test Item Value Reference Range Interpretation Comments POC-GLUCOSE METER 151 mg/dL 70-110 H TESTED AT [place] [address] ([facility]) (test code = PAUL Tanner [facility] 1538) [address] RAD, ABDOMEN/KUB, 1 VIEW [id number] 15:48:00Reason for exam:->eval for ileus vs obstructionFINAL REPORT Two abdomen images compared to February 20, 2018 Discussion: Moderateretained feces. No evidence of small bowel distention. No evidence of free intraperitoneal air. Regional bones are unremarkable. No concerning calcification. Signed: Flip Choe Verified Date/Time: 02/23/2018 15:48:56 Reading Location: [address] Consult Reading Room POCT-GLUCOSE [id number] 12:11:00 Test Item Value Reference Range Interpretation Comments POC-GLUCOSE METER 479 mg/dL 70-110 HH TESTED AT [place] [address] ([facility]) (test code = PAUL Tanner [facility] 1538) [id number] POCT-GLUCOSE [id number] 08:30:00 Test Item Value Reference Range Interpretation Comments POC-GLUCOSE METER > mg/dL 70-110 HH [facility] (test code RANGENot ified JORDON STAPLETON/TESTED = 1538) AT [place] [address] B [facility] 7703 0 BASIC METABOLIC [id number] 05:51:00 Test Item Value Reference Range Interpretation [...] PATIEN TS. CBC W/PLT COUNT & AUTO [id number] 05:39:00 Test Item Value Reference Range Interpretation [...] ABSOLUTE COUNT 0.02 K/ L 0.04-0.36 L ([facility]) (test code = 416) BASOPHILS ABSOLUTE COUNT ([facility]) 0.02 K/ L 0.01-0.08 (test code = 417) IMMATURE GRANULOCYTES-RELATIVE 1 % 0-1 PERCENT ([facility]) (test code = 2801) POCT-GLUCOSE [id number] 21:48:00 Test Item Value Reference Range Interpretation Comments POC-GLUCOSE METER 405 mg/dL 70-110 HH TESTED AT [place] [address] ([facility]) (test code = PAUL Tanner [place] [address]) [address] POCT-GLUCOSE [id number] 17:42:00 Test Item Value Reference Range Interpretation Comments POC-GLUCOSE METER 325 mg/dL 70-110 H Notified R N or MD ([facility]) (test code = Patien t refused repeat 1537) test/TESTED AT [address] [address] POCT-GLUCOSE [id number] 13:00:00 Test Item Value Reference Range Interpretation Comments POC-GLUCOSE METER 62 mg/dL 70-110 L Notified R N MD/TESTED AT ([facility]) (test code = [place] [address]) [facility] 7703 0 POCT-GLUCOSE [id number] 12:20:00 Test Item Value Reference Range Interpretation Comments POC-GLUCOSE METER 50 mg/dL 70-110 L Will Repea t Test/TESTED ([facility]) (test code = AT [place] [address]) [facility] 7703 0 POCT-GLUCOSE [id number] 12:20:00 Test Item Value Reference Range Interpretation Comments POC-GLUCOSE METER 37 mg/dL 70-110 LL Notified R N or MD ([facility]) (test code = Patien t refused repeat 1537) test/TESTED AT [address] [address] POCT-GLUCOSE [id number] 08:11:00 Test Item Value Reference Range Interpretation Comments POC-GLUCOSE METER 372 mg/dL 70-110 H TESTED AT [place] [address] ([facility]) (test code = [facility] [place]iro [place] [address]) [address] BASIC METABOLIC [id number] 06:08:00 Test Item Value Reference Range Interpretation [...] PATIEN TS. CBC W/PLT COUNT & AUTO [id number] 05:42:00 Test Item Value Reference Range Interpretation [...] PERCENT (BEAKER) (test code = 2801) POCT-GLUCOSE [id number] 19:45:00 Test Item Value Reference Range Interpretation Comments POC-GLUCOSE METER 81 mg/dL 70-110 TESTED AT [place] [address] ([facility]) (test code = [facility] [address] 1538) POCT-GLUCOSE [id number] 15:40:00 Test Item Value Reference Range Interpretation Comments POC-GLUCOSE METER 190 mg/dL 70-110 H TESTED AT [place] [address] ([facility]) (test code = [facility] 1538) [address] POCT-GLUCOSE [id number] 10:56:00 Test Item Value Reference Range Interpretation Comments POC-GLUCOSE METER 262 mg/dL 70-110 H TESTED AT [place] [address] ([facility]) (test code = [facility] 1538) [address] POCT-GLUCOSE [id number] 08:59:00 Test Item Value Reference Range Interpretation Comments POC-GLUCOSE METER 246 mg/dL 70-110 H TESTED AT [place] [address] (BEAKER) (test code = [facility] 1538) [address] POCT-GLUCOSE [id number] 08:13:00 Test Item Value Reference Range Interpretation Comments POC-GLUCOSE METER 176 mg/dL 70-110 H TESTED AT [facility] 67 (BEAKER) (test code = [facility] 1538) [address] POCT-GLUCOSE [id number] 07:18:00 Test Item Value Reference Range Interpretation Comments POC-GLUCOSE METER 193 mg/dL 70-110 H TESTED AT [place] [address] (BEAKER) (test code = [facility] 1538) [address] POCT-GLUCOSE [id number] 06:35:00 Test Item Value Reference Range Interpretation Comments POC-GLUCOSE METER 178 mg/dL 70-110 H TEST[facility] AT [place] [address] [facility] (test code = [facility] 1538) [address] BASIC METABOLIC [id number] 06:18:00 Test Item Value Reference Range Interpretation [...] PATIEN TS. CBC W/PLT COUNT & AUTO [id number] 06:07:00 Test Item Value Reference Range Interpretation [...] PERCENT (BEAKER) (test code = 2801) POCT-GLUCOSE [id number] 05:15:00 Test Item Value Reference Range Interpretation Comments POC-GLUCOSE METER 169 mg/dL 70-110 H TESTED AT [place] [id number] (BEAKER) (test code = PAUL Tanner [facility] 1538) [address] POCT-GLUCOSE [id number] 04:27:00 Test Item Value Reference Range Interpretation Comments POC-GLUCOSE METER 271 mg/dL 70-110 H TESTED AT [place] [address] (BEAKER) (test code = [facility] 1538) [address] POCT-GLUCOSE [id number] 03:45:00 Test Item Value Reference Range Interpretation Comments POC-GLUCOSE METER 269 mg/dL 70-110 H TESTED AT [place] [address] (BEAKER) (test code = [facility] 1538) [address] POCT-GLUCOSE [id number] 01:40:00 Test Item Value Reference Range Interpretation Comments POC-GLUCOSE METER 200 mg/dL 70-110 H TESTED AT [place] [address] (BEAKER) (test code = [facility] 1538) [address] BASIC METABOLIC [id number] 00:50:00 Test Item Value Reference Range Interpretation [...] NOT APPLICABLE FOR DIALYSIS PATIEN TS. POCT-GLUCOSE [id number] 00:49:00 Test Item Value Reference Range Interpretation Comments POC-GLUCOSE METER 103 mg/dL 70-110 TESTED AT [place] [address] (BEAKER) (test code = PAUL Tanner [facility] 1538) [address] POCT-GLUCOSE [id number] 00:28:00 Test Item Value Reference Range Interpretation Comments POC-GLUCOSE METER 109 mg/dL 70-110 TESTED AT [place] [address] ([facility]) (test code = PAUL Tanner [facility] 1538) [address] POCT-GLUCOSE [id number] 23:10:00 Test Item Value Reference Range Interpretation Comments POC-GLUCOSE METER 191 mg/dL 70-110 H TESTED AT [place] [address] ([facility]) (test code = PAUL Tanner [facility] 1538) [address] POCT-GLUCOSE [id number] 22:17:00 Test Item Value Reference Range Interpretation Comments POC-GLUCOSE METER 257 mg/dL 70-110 H TESTED AT [place] [address] ([facility]) (test code = PAUL Tanner [facility] 1538) [address] POCT-GLUCOSE [id number] 21:28:00 Test Item Value Reference Range Interpretation Comments POC-GLUCOSE METER 261 mg/dL 70-110 H TESTED AT [place] [address] ([facility]) (test code = PAUL Tanner [facility] 1538) [address] POCT-GLUCOSE [id number] 20:19:00 Test Item Value Reference Range Interpretation Comments POC-GLUCOSE METER 223 mg/dL 70-110 H TESTED AT [place] [address] ([facility]) (test code = PAUL Tanner [facility] 1538) [address] POCT-GLUCOSE [id number] 19:30:00 Test Item Value Reference Range Interpretation Comments POC-GLUCOSE METER 218 mg/dL 70-110 H TESTED AT [place] [address] ([facility]) (test code = PAUL Tanner [facility] 1538) [address] POCT-GLUCOSE [id number] 18:28:00 Test Item Value Reference Range Interpretation Comments POC-GLUCOSE METER 167 mg/dL 70-110 H TESTED AT [place] [address] ([facility]) (test code = [facility] 1538) [address] BASIC METABOLIC [id number] 17:37:00 Test Item Value Reference Range Interpretation Comments SODIUM ([facility]) 136 meq/L 136-145 (test code = 381) POTASSIUM (AKER) 4.2 meq/L 3.5-5.1 (test code = 379) [...] NOT APPLICABLE FOR DIALYSIS PATIEN TS. POCT-GLUCOSE [id number] 17:29:00 Test Item Value Reference Range Interpretation Comments POC-GLUCOSE METER 357 mg/dL 70-110 H TESTED AT [place] [address] ([facility]) (test code = PAUL Tanner [facility] 1538) [address] POCT-GLUCOSE [id number] 16:17:00 Test Item Value Reference Range Interpretation Comments POC-GLUCOSE METER 412 mg/dL 70-110 HH TESTED AT [place] [address] ([facility]) (test code = [address] [employer] [place] 1538) [address] POCT-GLUCOSE [id number] 14:57:00 Test Item Value Reference Range Interpretation Comments POC-GLUCOSE METER 356 mg/dL 70-110 H TESTED AT [place] [address] ([facility]) (test code = [employer] [facility] 1538) [address] POCT-GLUCOSE [id number] 14:08:00 Test Item Value Reference Range Interpretation Comments POC-GLUCOSE METER 247 mg/dL 70-110 H TESTED AT [place] [address] ([facility]) (test code = [employer] [facility] 1538) [address] RAD, ABDOMEN/KUB, 1 VIEW [id number] 14:07:00Reason for exam:->Abdominal pain, Cystic FibrosisShould this be performed at the bedside?->YesFINAL REPORT Two frontal views of the abdomen HISTORY: Abdominal pain COMPARISON: 05/03/2017 IMPRESSION: Moderate amount of stool in the colon. Nonobstructive bowel gas pattern. Bronchiectasis in the lungs. Lung bases otherwise clear. Signed: Michael Onofre MDReport Verified Date/Time: 02/20/2018 14:07:49 Reading Location: [facility] B1 C013Y CT Body Reading Room BASI METABOLIC PANEL 2018-02-20 13:15:00 Test Item Value Reference Range Interpretation Comments SODIUM (BEAKER) 136 meq/L 136-145 (test code = 381) POTASSIUM (BEAKER) 3.7 meq/L 3.5-5.1 (test code = 379) CHLORIDE (BEAKER) 104 meq/L 98-107 (test code = 382) CO2 (BEAKER) (test 23 meq/L - code = 355) BLOOD UREA NITROGEN 14 [...] NOT APPLICABLE FOR DIALYSIS PATIEN TS. POCT-GLUCOSE [id number] 12:22:00 Test Item Value Reference Range Interpretation Comments POC-GLUCOSE METER 367 mg/dL 70-110 H TESTED AT [place] [address] ([facility] (test code = [facility] 1538) [address] POCT-GLUCOSE [id number] 11:11:00 Test Item Value Reference Range Interpretation Comments POC-GLUCOSE METER 458 mg/dL 70-110 HH TESTED AT [facility] 6720 ([facility] (test code = [facility] 1538) [address] [id number] 11:11:00 Test Item Value Reference Range Interpretation Comments GLUCOSE RANDOM (BEAKER) (test code 449 mg/dL 70-105 HH = 652) POCT-GLUCOSE [id number] 10:06:00 Test Item Value Reference Range Interpretation Comments POC-GLUCOSE METER > mg/dL 70-110 HH OUTSIDE ME ASURING ([facility]) (test code RANGETES MAGDALENO AT [place] [address] = 1538) [place]ET[place]O [facility] [address] SPUTUM CULTURE + GRAM [id number] 09:42:00 Test Item Value Reference Range Interpretation Comments CULTURE ([facility]) (test code = See comment 1095) Culture charges credited as "incorrect order". Please refer to CF respiratory culture for results.Previously reported organism is no longer reported. Please contact the Microbiology Department for additional information.POCT- GLUCOSE [id number] 09:12:00 Test Item Value Reference Range Interpretation Comments POC-GLUCOSE METER 388 mg/dL 70-110 H TESTED AT [place] [address] ([facility]) (test code = [facility] 1538) [address]67 POCT-GLUCOSE [id number] 07:56:00 Test Item Value Reference Range Interpretation Comments POC-GLUCOSE METER 194 mg/dL 70-110 H TESTED AT [place] [address] ([facility]) (test code = [facility] 1538) [address]99 POCT-GLUCOSE [id number] 06:35:00 Test Item Value Reference Range Interpretation Comments POC-GLUCOSE METER 157 mg/dL 70-110 H TESTED AT [place] [address] ([facility]) (test code = [facility] 1538) [address] POCT-GLUCOSE [id number] 05:10:00 Test Item Value Reference Range Interpretation Comments POC-GLUCOSE METER 247 mg/dL 70-110 H TESTED AT [place] [address] ([facility]) (test code = [facility] 1538) [address] BASIC METABOLIC [id number] 04:54:00 Test Item Value Reference Range Interpretation [...] NOT APPLICABLE FOR DIALYSIS PATIEN TS. POCT-GLUCOSE [id number] 04:07:00 Test Item Value Reference Range Interpretation Comments POC-GLUCOSE METER 290 mg/dL 70-110 H TESTED AT [place] [address] (BEAKER) (test code = PAUL Tanner [facility] 1538) 8[address] POCT-GLUCOSE [id number] 03:04:00 Test Item Value Reference Range Interpretation Comments POC-GLUCOSE METER 309 mg/dL 70-110 H TESTED AT [place] [address] ([facility] (test code = PAUL Tanner [facility] 1538) 76898 POCT-GLUCOSE [id number] 01:36:00 Test Item Value Reference Range Interpretation Comments POC-GLUCOSE METER 361 mg/dL 70-110 H TESTED AT [place] [address] (BEAKER) (test code = [facility] 1538) 10706 POCT-GLUCOSE [id number] 00:06:00 Test Item Value Reference Range Interpretation Comments POC-GLUCOSE METER 308 mg/dL 70-110 H TESTED AT [place] [address] (BEAKER) (test code = [facility] 1538) [address] URINALYSIS W/ [id number] 23:11:00 Test Item Value Reference Range Interpretation [...] 516) SOURCE(BEAKER) (test code = Urine, Voided 7247) POCT-GLUCOSE [id number] 22:35:00 Test Item Value Reference Range Interpretation Comments POC-GLUCOSE METER 350 mg/dL 70-110 H TESTED AT [place] [address] (BEAKER) (test code = [facility] 1538) 79866 POCT-GLUCOSE [id number] 21:17:00 Test Item Value Reference Range Interpretation Comments POC-GLUCOSE METER 438 mg/dL 70-110 HH TESTED AT [place] [address] (BEAKER) (test code = [facility] 1538) [address]18 POCT-GLUCOSE [id number] 20:16:00 Test Item Value Reference Range Interpretation Comments POC-GLUCOSE METER 446 mg/dL 70-110 HH TESTED AT [place] [address] ([facility] (test code = [facility] 1538) 40052 POCT-GLUCOSE [id number] 18:57:00 Test Item Value Reference Range Interpretation Comments POC-GLUCOSE METER 452 mg/dL 70-110 HH Will Repea t Test/TESTED (BEAKER) (test code = AT [address] 1538) [facility] 7703 0 [id number] 18:10:00 Test Item Value Reference Range Interpretation Comments GLUCOSE RANDOM (BEAKER) (test code 548 mg/dL 70-105 HH = 652) If last glucose was less than 500, may do bedside glucose instead of serum glucose.POCT-GLUCOSE [id number] 17:46:00 Test Item Value Reference Range Interpretation Comments POC-GLUCOSE METER > mg/dL 70-110 HH OUTSIDE ME ASURING (BEAKER) (test code = RANGEW ill Repeat 1538) Test/TESTED AT [place] [id number] [facility] [address] POCT-GLUCOSE [id number] 16:37:00 Test Item Value Reference Range Interpretation Comments POC-GLUCOSE METER > mg/dL 70-110 HH OUTSIDE ME ASURING (BEAKER) (test code = RANGEW ill Repeat 1538) Test/TESTED AT [address] [address] [id number] 16:07:00 Test Item Value Reference Range Interpretation Comments GLUCOSE RANDOM (BEAKER) (test code 658 mg/dL 70-105 HH = 652) If last glucose was less than 500, may do bedside glucose instead of serum glucose.[id number] 15:53:00 Test Item Value Reference Range Interpretation Comments POTASSIUM (BEAKER) (test code = 4.2 meq/L 3.5-5.1 379) If last glucose was less than 500, may do bedside glucose instead of serum glucose.POCT-GLUCOSE [id number] 15:37:00 Test Item Value Reference Range Interpretation Comments POC-GLUCOSE METER > mg/dL 70-110 HH OUTSIDE ME ASURING (BEAKER) (test code RANGETES MAGDALENO AT [place] [address] = 1538) [facility] [address] [id number] 14:05:00 Test Item Value Reference Range Interpretation Comments GLUCOSE RANDOM (BEAKER) (test code 682 mg/dL 70-105 HH = 652) If last glucose was less than 500, may do bedside glucose instead of serum glucose.[id number] 14:03:00 Test Item Value Reference Range Interpretation Comments POTASSIUM (BEAKER) (test code = 4.2 meq/L 3.5-5.1 379) If last glucose was less than 500, may do bedside glucose instead of serum glucose.KETONE, [id number] 13:59:00 Test Item Value Reference Range Interpretation Comments KETONES, BLOOD (BEAKER) (test code 0.1 mmol/L <0.4 = 1103) BASIC METABOLIC [id number] 10:48:00 Test Item Value Reference Range Interpretation [...] NOT APPLICABLE FOR DIALYSIS PATIEN TS. TROPONIN [id number] 10:40:00 Test Item Value Reference Range Interpretation [...] acidosis, acute neurological disease, and persistent tachyarrhythmia.POCT-GLUCOSE [id number] 09:51:00 Test Item Value Reference Range Interpretation Comments POC-GLUCOSE METER > mg/dL 70-110 HH OUTSIDE ME ASURING (BEAKER) (test code RANGENot domenica RUVALCABA MD/TESTED = 1538) AT [place] [address] B [facility] 7703 0 POCT-GLUCOSE [id number] 08:34:00 Test Item Value Reference Range Interpretation Comments POC-GLUCOSE METER > mg/dL 70-110 HH OUTSIDE ME ASURING (BEAKER) (test code RANGENot domenica RUVALCABA MD/TESTED = 1538) AT [place] [address] B [facility] 7703 0 RESPIRATORY PANEL [id number] 07:53:00 Test Item Value Reference Range Interpretation [...] (BEAKER) (test code = Inconclusive 3207) HEMOGLOBIN [id number] 07:34:00 Test Item Value Reference Range Interpretation Comments HEMOGLOBIN A1C (BEAKER) (test code = 14.5 % 4.3-6.1 H 368) [id number] 05:23:00 Test Item Value Reference Range Interpretation Comments BLOOD UREA NITROGEN (BEAKER) (test 15 mg/dL 7-21 code = 354) [id number] 05:23:00 Test Item Value Reference Range Interpretation Comments CREATININE (BEAKER) 1.31 mg/dL 0.57-1.25 H (test code = 358) EGFR (BEAKER) (test 60 mL/min/1.73 ESTIMA MAGDALENO GFR IS code = 1092) sq m NOT ACCURATE CREATININE CLEARANCE IN PREDICTING GLOMERULAR FILTRATION RATE . ESTIMATED GFR I S NOT APPLICABLE FOR DIALYSIS PATIEN TS. POCT-LACTIC ACID, [id number] 02:44:00 Test Item Value Reference Range Interpretation Comments POC-LACTIC ACID, 1.4 mmol/L 0.9-1.7 TESTED AT B [facility] 6720 VENOUS (BEAKER) (test PAUL MEDINA [place] code = 2805) [address] TROPONIN [id number] 00:25:00 Test Item Value Reference Range Interpretation [...] 02/26/2016: Units/Reference Range ChangeNew: 0.5-2.2 mmol/L Previous: 5- 20 mg/dLKETONE, [id number] 23:58:00 Test Item Value Reference Range Interpretation Comments KETONES, BLOOD (BEAKER) (test code 0.4 mmol/L <0.4 H = 1103) RAPID STREP A [id number] 23:13:00 Test Item Value Reference Range Interpretation Comments STREP A ANTIGEN (BEAKER) (test code Negative Negative = 556) TROPONIN [id number] 22:54:00 Test Item Value Reference Range Interpretation [...] = 395) CK-MB Reference Range:<6.7 Normal6.7-10.0 Borderline>10.0 Abnormal COMPREHENSIVE METABOLIC [id number] 22:48:00 Test Item Value Reference Range Interpretation [...] FOR DIALYSIS PATIEN TS. RAPID INFLUENZA A&B [id number] 22:47:00 Test Item Value Reference Range Interpretation Comments RAPID INFLUENZA A AG (BEAKER) Negative Negative, Inconclusive (test code = 1622) RAPID INFLUENZA B AG (BEAKER) Negative Negative, Inconclusive (test code = 1623) LACTIC ACID, VENOUS, WHOLE [id number] 22:43:00 Test Item Value Reference Range Interpretation Comments LACTATE BLOOD VENOUS (2) (BEAKER) 0.9 mmol/L 0.5-2.2 (test code = 2872) Effective 02/26/2016: Units/Reference Range ChangeNew: 0.5-2.2 mmol/L Previous: 5- 20 mg/dLPOCT-LACTIC ACID, [id number] 22:36:00 Test Item Value Reference Range Interpretation Comments POC-LACTIC ACID, 0.7 mmol/L 0.9-1.7 L TESTED AT [facility] 6720 VENOUS (BEAKER) (test [facility] [place] code = 2805) [address] POCT-GLUCOSE [id number] 22:35:00 Test Item Value Reference Range Interpretation Comments POC-GLUCOSE METER 191 mg/dL 70-110 H TESTED AT [facility] 67 (BEAKER) (test code = [facility] [place] 1534) [address] CBC W/PLT COUNT & AUTO [id number] 22:33:00 Test Item Value Reference Range Interpretation [...] = 2801) RAD, CHEST, 1 VIEW, NON [id number] 22:18:00Reason for exam:->SHORTNESS OF BREATHShould this be performed at the bedside?->YesFINAL REPORT History: Shortness of breath. FINDINGS: Compared with November 29, 2017, reticulonodular and patchy airspace disease is again seen in the lungs bilaterally. No visible effusions. Right chest port position is unchanged. No pneumothorax. Heart and mediastinum are stable.No mediastinal or hilar adenopathy. Bones are unremarkable. IMPRESSION: 1. Diffuse bilateral mixed re ticular nodule and pulmonary airspace opacity, unchanged since the previous study. No new cardiopulmonary abnormalities. Signed: Flip Singer Verified Date/Time: 02/18/2018 22:18:49 Reading Location: [facility] Diagnostic Imaging Reading Room - [place] [address] 1120 AFB CULTURE + [id number] 14:30:00 Test Item Value Reference Range Interpretation Comments CULTURE (BEAKER) (test No acid-fast bacilli code = 1095) isolated in 42 days AFB SMEAR (BEAKER) No acid fast bacilli (test code = 994) seen FUNGUS CULTURE + [id number] 15:40:00 Test Item Value Reference Range Interpretation Comments CULTURE (BEAKER) A 1+ [place] (test code = dubliniensis 1095) FUNGUS SMEAR 1+ budding yeast (BEAKER) (test code = 1406) CF RESPIRATORY [id number] 10:56:00 Test Item Value Reference Range Interpretation [...] aeruginos a 2+ Normal respiratory derick presentBLOOD [id number] 23:00:00 Test Item Value Reference Range Interpretation Comments CULTURE (BEAKER) (test No growth in 5 days code = 1095) BLOOD [id number] 23:00:00 Test Item Value Reference Range Interpretation Comments CULTURE (BEAKER) (test No growth in 5 days code = 1095) POCT-GLUCOSE [id number] 11:04:00 Test Item Value Reference Range Interpretation Comments POC-GLUCOSE METER 107 mg/dL 70-110 TESTED AT [place] [id number] ([facility]) (test code = PAUL Tanner [facility] 1538) [address] POCT-GLUCOSE [id number] 08:39:00 Test Item Value Reference Range Interpretation Comments POC-GLUCOSE METER 90 mg/dL 70-110 TESTED AT [place] [id number] ([facility]) (test code = PAUL Tanner [facility] [address] 1538) POCT-GLUCOSE [id number] 21:21:00 Test Item Value Reference Range Interpretation Comments POC-GLUCOSE METER 63 mg/dL 70-110 L Notified R N MD/TESTED AT ([facility]) (test code = [place] [address]) [facility] 7703 0 POCT-GLUCOSE [id number] 17:03:00 Test Item Value Reference Range Interpretation Comments POC-GLUCOSE METER 61 mg/dL 70-110 L Will Repea t Test/TESTED ([facility]) (test code = AT [place] [address]04508) [facility] 7703 0 POCT-GLUCOSE [id number] 12:18:00 Test Item Value Reference Range Interpretation Comments POC-GLUCOSE METER 54 mg/dL 70-110 L Notified R N MD/TESTED AT ([facility]) (test code = [place] [address]) [facility] 7703 0 POCT-GLUCOSE [id number] 09:59:00 Test Item Value Reference Range Interpretation Comments POC-GLUCOSE METER 173 mg/dL 70-110 H TESTED AT [place] [address] ([facility]) (test code = [place]UL [place] 581198) [id number] BUN AND [id number] 05:43:00 Test Item Value Reference Range Interpretation Comments BLOOD UREA NITROGEN 14 mg/dL 7-21 ([facility]) (test code = 354) CREATININE ([facility]) 0.71 mg/dL 0.57-1.25 (test code = 358) EGFR ([facility]) (test 122 mL/min/1.73 ESTIM ATED GFR IS code = 1092) sq m NOT ACCURATE CREATININE CLEARANCE IN PREDICTING GLOMERULAR FILTRATION RATE . ESTIMATED GFR I S NOT APPLICABLE FOR DIALYSIS PATIEN TS. POCT-GLUCOSE [id number] 22:13:00 Test Item Value Reference Range Interpretation Comments POC-GLUCOSE METER 171 mg/dL 70-110 H TESTED AT [place] [address] ([facility]) (test code = [facility] 1538) [id number] POCT-GLUCOSE [id number] 17:15:00 Test Item Value Reference Range Interpretation Comments POC-GLUCOSE METER 163 mg/dL 70-110 H TESTED AT [place] [address] ([facility]) (test code = [facility] [facility] 15[facility] [address] SPIN/CONCENTRATION [id number] 15:40:00 Test Item Value Reference Range Interpretation Comments CONCENTRATION CHARGED ([facility]) (test Done code = 2657) POCT-GLUCOSE [id number] 12:57:00 Test Item Value Reference Range Interpretation Comments POC-GLUCOSE METER 210 mg/dL 70-110 H TESTED AT [place] [address] ([facility]) (test code = [facility] 1538) [address] POCT-GLUCOSE [id number] 08:13:00 Test Item Value Reference Range Interpretation Comments POC-GLUCOSE METER 288 mg/dL 70-110 H TESTED AT [place] [address] ([facility]) (test code = [facility] 1538) [address] BUN AND [id number] 04:09:00 Test Item Value Reference Range Interpretation Comments BLOOD UREA NITROGEN 13 mg/dL 7-21 ([facility]) (test code = 354) CREATININE ([facility]) 0.70 mg/dL 0.57-1.25 (test code = 358) EGFR ([facility]) (test 124 mL/min/1.73 ESTIM ATED GFR IS code = 1092) sq m NOT ACCURATE CREATININE CLEARANCE IN PREDICTING GLOMERULAR FILTRATION RATE . ESTIMATED GFR I S NOT APPLICABLE FOR DIALYSIS PATIEN TS. POCT-GLUCOSE [id number] 21:28:00 Test Item Value Reference Range Interpretation Comments POC-GLUCOSE METER 307 mg/dL 70-110 H TESTED AT [place] [address] ([facility]) (test code = [facility] 1538) [address] RESPIRATORY PANEL [id number] 19:09:00 Test Item Value Reference Range Interpretation Comments HUMAN METAPNEUMOVIRUS Not detected Not detected, [facility] (test code = Inconclusive 4843) RHINOVIRUS (BEAKER) Not detected Not detected, (test [...] isolates of Coronavirus HKU 1. A dual positive may be due to cross reactivit y or may indicate a co-infection. CORONAVIRUS NL63 Not detected Not detected, (BEAKER) (test code = Inconclusive 3203) CORONAVIRUS OC43 Not detected Not detected, FilmArray RP (BEAKER) (test code = Inconclusive assay for 3204) Coronavirus OC4 3 may cross react with some isolates of Coronavirus HKU 1. A dual positive may be due to cross reactivit y or may indicate a co-infection. BORDETELLA PERTUSSIS Not detected Not detected, (BEAKER) (test code = Inconclusive 3205) CHLAMYDOPHILA Not detected Not detected, PNEUMONIAE (BEAKER) Inconclusive (test code = 3206) MYCOPLASMA PNEUMONIAE Not detected Not detected, (BEAKER) (test code = Inconclusive 3207) POCT-GLUCOSE [id number] 17:30:00 Test Item Value Reference Range Interpretation Comments POC-GLUCOSE METER 322 mg/dL 70-110 H Will Repea t Test/TESTED (BEAKER) (test code = AT [facility] [address] 1538) [facility] 7703 0 URINALYSIS W/ [id number] 15:33:00 Test Item Value Reference Range Interpretation [...] 516) SOURCE(BEAKER) (test code = Urine, Voided 1197) POCT-GLUCOSE [id number] 13:21:00 Test Item Value Reference Range Interpretation Comments POC-GLUCOSE METER 492 mg/dL 70-110 HH Will Repea t Test/TESTED (BEAKER) (test code = AT [facility] [address] 1538) [facility] 7703 0 POCT-GLUCOSE [id number] 13:15:00 Test Item Value Reference Range Interpretation Comments POC-GLUCOSE METER > mg/dL 70-110 HH OUTSIDE ME ASURING (BEAKER) (test code = RANGEW ill Repeat 1538) Test/TESTED AT [facility] 67[address] [facility] [address] HEMOGLOBIN [id number] 08:57:00 Test Item Value Reference Range Interpretation Comments HEMOGLOBIN A1C (BEAKER) (test code = 13.8 % 4.3-6.1 H 368) HEMOGLOBIN [id number] 08:57:00 Test Item Value Reference Range Interpretation Comments HEMOGLOBIN A1C (BEAKER) (test code = 13.7 % 4.3-6.1 H 368) POCT-GLUCOSE [id number] 07:57:00 Test Item Value Reference Range Interpretation Comments POC-GLUCOSE METER 471 mg/dL 70-110 HH Will Repea t Test/TESTED (BEAKER) (test code = AT [facility] 67[address] [facility] 1538) [facility] 7703 0 COMPREHENSIVE METABOLIC [id number] 03:12:00 Test Item Value Reference Range Interpretation [...] APPLICABLE FOR DIALYSIS PATIEN TS. BUN AND [id number] 03:11:00 Test Item Value Reference Range Interpretation [...] 19 U/L 9-64 (test code = 364) [id number] 03:10:00 Test Item Value Reference Range Interpretation Comments PHOSPHORUS (BEAKER) (test code = 3.6 mg/dL 2.3-4.7 604) [id number] 03:05:00 Test Item Value Reference Range Interpretation Comments MAGNESIUM (BEAKER) (test code = 1.6 mg/dL 1.6-2.6 627) CBC W/PLT COUNT & AUTO [id number] 02:46:00 Test Item Value Reference Range Interpretation [...] (test code = 2801) RAD, CHEST, 2 [id number] 22:13:00Reason for exam:->Cystic FibrosisShould this be performed [...] MDReport Verified Date/Time: 11/29/2017 22:13:03 Reading Location: [facility] Consult Reading Room POCT- GLUCOSE [id number] 21:13:00 Test Item Value Reference Range Interpretation Comments POC-GLUCOSE METER > mg/dL 70-110 HH OUTSIDE ME ASURING (BEAKER) (test code RANGETES MAGDALENO AT [facility] 6720 = 1538) [place]O [facility] [address] POCT-GLUCOSE [id number] 18:02:00 Test Item Value Reference Range Interpretation Comments POC-GLUCOSE METER 292 mg/dL 70-110 H TESTED AT [facility] 6720 (BEAKER) (test code = PAUL Tanner [place] 1538) [address] [id number] 08:10:00 Test Item Value Reference Range Interpretation Comments MAGNESIUM (BEAKER) (test code = 1.4 mg/dL 1.6-2.6 L 627) [id number] 08:10:00 Test Item Value Reference Range Interpretation Comments PHOSPHORUS (BEAKER) (test code = 3.3 mg/dL 2.3-4.7 604) BASIC METABOLIC [id number] 07:41:00 Test Item Value Reference Range Interpretation [...] NOT APPLICABLE FOR DIALYSIS PATIEN TS. KETONE, [id number] 07:13:00 Test Item Value Reference Range Interpretation Comments KETONES, BLOOD (BEAKER) (test code 0.0 mmol/L <0.4 = 1103) BLOOD GAS, [id number] 07:10:00 Test Item Value Reference Range Interpretation [...] (test code = 1819) 21.0 % POCT-GLUCOSE [id number] 06:51:00 Test Item Value Reference Range Interpretation Comments POC-GLUCOSE METER 134 mg/dL 70-110 H TESTED AT [facility] 6720 (BEAKER) (test code = [place] 1538) [address] BASIC METABOLIC [id number] 06:32:00 Test Item Value Reference Range Interpretation [...] DIALYSIS PATIEN TS. URINALYSIS W/ REFLEX URINE [id number] 06:19:00 Test Item Value Reference Range Interpretation [...] code = 1584) SOURCE(BEAKER) (test code = 2793) SCREEN, [id number] 06:07:00 Test Item Value Reference Range Interpretation Comments TEST URINE (BEAKER) (test Negative code = 583) [id number] 05:41:00 Test Item Value Reference Range Interpretation Comments LIPASE (BEAKER) (test code = 749) < U/L 8-78 L HEPATIC FUNCTION [id number] 05:40:00 Test Item Value Reference Range Interpretation [...] 6-55 347) CBC W/PLT COUNT & AUTO [id number] 05:10:00 Test Item Value Reference Range Interpretation [...] (test code = 2801) AFB CULTURE + [id number] 12:29:00 Test Item Value Reference Range Interpretation Comments [facility] (test No acid-fast bacilli code = 1095) isolated in 42 days AFB SMEAR ([facility]) No acid fast bacilli (test code = 994) seen FUNGUS CULTURE + [id number] 09:42:00 Test Item Value Reference Range Interpretation Comments CULTURE ([facility]) A <1+ [place] (test code = dubliniensis 1095) FUNGUS SMEAR <1+ budding ([facility]) (test yeast code = 1406) See smear results.POCT-GLUCOSE [id number] 14:27:00 Test Item Value Reference Range Interpretation Comments POC-GLUCOSE METER 255 mg/dL 70-110 H TESTED AT [place] [address] ([facility]) (test code = PAUL Tanner [facility] 1538) [address] POCT-GLUCOSE [id number] 11:59:00 Test Item Value Reference Range Interpretation Comments POC-GLUCOSE METER 157 mg/dL 70-110 H TESTED AT [place] [address] ([facility]) (test code = PAUL Tanner [facility] 1538) [address] POCT-GLUCOSE [id number] 08:51:00 Test Item Value Reference Range Interpretation Comments POC-GLUCOSE METER 57 mg/dL 70-110 L Notified Ciro Polanco MD/TESTED AT ([facility]) (test code = [address] 1538) [facility] 7703 0 [id number] 05:55:00 Test Item Value Reference Range Interpretation Comments BLOOD UREA NITROGEN ([facility]) (test 18 mg/dL 7-21 code = 354) [id number] 05:55:00 Test Item Value Reference Range Interpretation Comments CREATININE ([facility]) 0.69 mg/dL 0.57-1.25 (test code = 358) EGFR ([facility]) (test 126 mL/min/1.73 ESTIM ATED GFR IS code = 1092) sq m NOT ACCURATE CREATININE CLEARANCE IN PREDICTING GLOMERULAR FILTRATION RATE . ESTIMATED GFR I S NOT APPLICABLE FOR DIALYSIS PATIEN TS. POCT-GLUCOSE [id number] 21:24:00 Test Item Value Reference Range Interpretation Comments POC-GLUCOSE METER 139 mg/dL 70-110 H TESTED AT [place] [address] ([facility]) (test code = [facility] 1538) [address]75 POCT-GLUCOSE [id number] 17:18:00 Test Item Value Reference Range Interpretation Comments POC-GLUCOSE METER 148 mg/dL 70-110 H TESTED AT [place] [address] ([facility]) (test code = [facility] 1538) [address]78 POCT-GLUCOSE [id number] 12:36:00 Test Item Value Reference Range Interpretation Comments POC-GLUCOSE METER 104 mg/dL 70-110 TESTED AT [place] [address] ([facility]) (test code = [facility] 1538) [address] CF RESPIRATORY [id number] 11:18:00 Test Item Value Reference Range Interpretation Comments CULTURE ([facility]) (test code = 1095) Amikacin (test code [...] 1095) aeruginos a (Mucoid-phenoty pe) CULTURE (BEAKER) A 1+ Streptoc occus (test code = 1095) not group A beta hemolytic 4+ Normal respiratory derick presentPOCT-GLUCOSE [id number] 08:50:00 Test Item Value Reference Range Interpretation Comments POC-GLUCOSE METER 74 mg/dL 70-110 TESTED AT [facility] 6720 ([facility]) (test code = [place] [address] 1538) [id number] 06:55:00 Test Item Value Reference Range Interpretation Comments BLOOD UREA NITROGEN (BEAKER) (test 25 mg/dL 7-21 H code = 354) [id number] 06:55:00 Test Item Value Reference Range Interpretation Comments CREATININE ([facility]) 0.77 mg/dL 0.57-1.25 (test code = 358) EGFR ([facility]) (test 111 mL/min/1.73 ESTIM ATED GFR IS code = 1092) sq m NOT ACCURATE CREATININE CLEARANCE IN PREDICTING GLOMERULAR FILTRATION RATE . ESTIMATED GFR I S NOT APPLICABLE FOR DIALYSIS PATIEN TS. POCT-GLUCOSE [id number] 21:23:00 Test Item Value Reference Range Interpretation Comments POC-GLUCOSE METER 226 mg/dL 70-110 H TESTED AT [place] [address] ([facility]) (test code = PAUL Tanner [facility] 1538) [address] POCT-GLUCOSE [id number] 17:48:00 Test Item Value Reference Range Interpretation Comments POC-GLUCOSE METER 207 mg/dL 70-110 H TESTED AT [place] [address] ([facility]) (test code = PAUL Tanner [facility] 1538) [address] POCT-GLUCOSE [id number] 13:40:00 Test Item Value Reference Range Interpretation Comments POC-GLUCOSE METER 63 mg/dL 70-110 L TESTED AT [place] [address] ([facility]) (test code = PAUL Tanner [facility] [address] 1538) POCT-GLUCOSE [id number] 12:57:00 Test Item Value Reference Range Interpretation Comments POC-GLUCOSE METER 42 mg/dL 70-110 L Notified Ciro Polanco MD/TESTED AT ([facility]) (test code = [address] 1538) [facility] 7703 0 POCT-GLUCOSE [id number] 08:52:00 Test Item Value Reference Range Interpretation Comments POC-GLUCOSE METER 191 mg/dL 70-110 H TESTED AT [place] [address] ([facility]) (test code = PAUL Tanner [facility] 1538) [address] [id number] 07:08:00 Test Item Value Reference Range Interpretation Comments BLOOD UREA NITROGEN ([facility]) (test 18 mg/dL 7-21 code = 354) [id number] 07:08:00 Test Item Value Reference Range Interpretation Comments CREATININE ([facility]) 0.75 mg/dL 0.57-1.25 (test code = 358) EGFR ([facility]) (test 114 mL/min/1.73 ESTIM ATED GFR IS code = 1092) sq m NOT ACCURATE CREATININE CLEARANCE IN PREDICTING GLOMERULAR FILTRATION RATE . ESTIMATED GFR I S NOT APPLICABLE FOR DIALYSIS PATIEN TS. POCT-GLUCOSE [id number] 21:41:00 Test Item Value Reference Range Interpretation Comments POC-GLUCOSE METER 361 mg/dL 70-110 H TESTED AT [place] [address] ([facility]) (test code = PAUL Tanner [facility] 1538) [address] POCT-GLUCOSE [id number] 18:53:00 Test Item Value Reference Range Interpretation Comments POC-GLUCOSE METER 96 mg/dL 70-110 TESTED AT [place] [address] ([facility]) (test code = PAUL Tanner [facility] [address] 1538) POCT-GLUCOSE [id number] 18:18:00 Test Item Value Reference Range Interpretation Comments POC-GLUCOSE METER 68 mg/dL 70-110 L Notified R Collin STAPLETON/TESTED AT ([facility]) (test code = [address] 1538) [facility] 7703 0 POCT-GLUCOSE [id number] 13:46:00 Test Item Value Reference Range Interpretation Comments POC-GLUCOSE METER 142 mg/dL 70-110 H TESTED AT [place] [id number] ([facility]) (test code = PAUL Tanner [facility] 1538) [address] POCT-GLUCOSE [id number] 12:51:00 Test Item Value Reference Range Interpretation Comments POC-GLUCOSE METER 49 mg/dL 70-110 L Notified R Collin STAPLETON/TESTED AT ([facility]) (test code = [address] 1538) [facility] 7703 0 POCT-GLUCOSE [id number] 08:07:00 Test Item Value Reference Range Interpretation Comments POC-GLUCOSE METER 144 mg/dL 70-110 H TESTED AT [place] [address] ([facility]) (test code = PAUL Tanner [facility] 1538) [address] [id number] 07:32:00 Test Item Value Reference Range Interpretation Comments BLOOD UREA NITROGEN ([facility]) (test 19 mg/dL 7- code = 354) [id number] 07:32:00 Test Item Value Reference Range Interpretation Comments CREATININE ([facility]) 0.73 mg/dL 0.57-1.25 (test code = 358) EGFR ([facility]) (test 118 mL/min/1.73 ESTIM ATED GFR IS code = 1092) sq m NOT ACCURATE CREATININE CLEARANCE IN PREDICTING GLOMERULAR FILTRATION RATE . ESTIMATED GFR I S NOT APPLICABLE FOR DIALYSIS PATIEN TS. POCT-GLUCOSE [id number] 21:59:00 Test Item Value Reference Range Interpretation Comments POC-GLUCOSE METER 211 mg/dL 70-110 H TESTED AT [place] [address] ([facility]) (test code = PAUL Tanner [place] 1538) [address] POCT-GLUCOSE [id number] 18:20:00 Test Item Value Reference Range Interpretation Comments POC-GLUCOSE METER 178 mg/dL 70-110 H TESTED AT [place] [address] ([facility]) (test code = [facility] 1538) [address] [id number] 15:05:00 Test Item Value Reference Range Interpretation Comments BLOOD UREA NITROGEN ([facility]) (test 15 mg/dL - code = 354) [id number] 15:05:00 Test Item Value Reference Range Interpretation Comments CREATININE ([facility]) 0.86 mg/dL 0.57-1.25 Specimen slightly (test code = 358) hemolyzed EGFR ([facility]) (test 97 mL/min/1.73 ESTIMA MAGDALENO GFR IS code = 1092) sq m NOT ACCURATE CREATININE CLEARANCE IN PREDICTING GLOMERULAR FILTRATION RATE . ESTIMATED GFR I S NOT APPLICABLE FOR DIALYSIS PATIEN TS. POCT-GLUCOSE [id number] 12:02:00 Test Item Value Reference Range Interpretation Comments POC-GLUCOSE METER 357 mg/dL 70-110 H TESTED AT [place] [address] ([facility]) (test code = [facility] 1538) [address] RAD, CHEST, 2 [id number] 10:11:00Reason for exam:->Cystic FibrosisShould this be performed at the bedside?->NoFINAL REPORT Chest x-ray, PA and lateral views Clinical History: Cystic Fibrosis Comparison: June 18, 2017 Findings: Cardiomediastinal contours are normal. Right-sided Port-A-Cath is in stable position. Scattered foci of reticular nodular opacities and bronchiectatic changes aregrossly unchanged. There is a small band of scarring/atelectasis in the left upper lung. No pneumothorax, or significant pleural effusion. Osseous structures are intact. Impression: Stable findings of cystic fibrosis. Signed: Everardo Castellanoseport Verified Date/Time: 09/24/2017 10:11:13 Reading Location: [facility] Reading Room POCT-GLUCOSE [id number] 08:09:00 Test Item Value Reference Range Interpretation Comments POC-GLUCOSE METER 331 mg/dL 70-110 H TESTED AT [place] [address] ([facility]) (test code = PAUL Tanner [place] 581198) [address] POCT-GLUCOSE [id number] 21:28:00 Test Item Value Reference Range Interpretation Comments POC-GLUCOSE METER 473 mg/dL 70-110 HH TESTED AT [place] [address] ([facility]) (test code = PAUL Tanner [place] 581198) [address] POCT-GLUCOSE [id number] 18:31:00 Test Item Value Reference Range Interpretation Comments POC-GLUCOSE METER 444 mg/dL 70-110 HH TESTED AT [place] [address] ([facility]) (test code = PAUL Tanner [place] 581198) [address] HEMOGLOBIN [id number] 17:51:00 Test Item Value Reference Range Interpretation Comments HEMOGLOBIN A1C ([facility]) (test code = 13.7 % 4.3-6.1 H 368) POCT-GLUCOSE [id number] 17:16:00 Test Item Value Reference Range Interpretation Comments POC-GLUCOSE METER 496 mg/dL 70-110 HH Notified R Collin MD/TESTED ([facility]) (test code = AT [place] [address]) [facility] 770 0 SPIN/CONCENTRATION [id number] 12:37:00 Test Item Value Reference Range Interpretation Comments CONCENTRATION CHARGED ([facility]) (test Done code = 2657) POCT-GLUCOSE [id number] 12:28:00 Test Item Value Reference Range Interpretation Comments POC-GLUCOSE METER 492 mg/dL 70-110 HH Notified R Collin MD/TESTED ([facility]) (test code = AT [place] 904508) [facility] 770 0 [id number] 07:45:00 Test Item Value Reference Range Interpretation Comments BLOOD UREA NITROGEN (BEAKER) (test 10 mg/dL 05-14 code = 354) [id number] 07:45:00 Test Item Value Reference Range Interpretation Comments CREATININE (BEAKER) 0.76 mg/dL 0.57-1.25 (test code = 358) EGFR (BEAKER) (test 112 mL/min/1.73 ESTIM ATED GFR IS code = 1092) sq m NOT ACCURATE CREATININE CLEARANCE IN PREDICTING GLOMERULAR FILTRATION RATE . ESTIMATED GFR I S NOT APPLICABLE FOR DIALYSIS PATIEN TS. POCT-GLUCOSE [id number] 07:00:00 Test Item Value Reference Range Interpretation Comments POC-GLUCOSE METER 361 mg/dL 70-110 H TESTED AT [facility] 6720 (BEAKER) (test code = [place] 1538) [address] [id number] 23:30:00 Test Item Value Reference Range Interpretation Comments PHOSPHORUS (BEAKER) (test code = 3.8 mg/dL 2.3-4.7 604) [id number] 23:30:00 Test Item Value Reference Range Interpretation Comments MAGNESIUM (BEAKER) (test code = 1.5 mg/dL 1.6-2.6 L 627) COMPREHENSIVE METABOLIC [id number] 23:30:00 Test Item Value Reference Range Interpretation [...] = 382) CO2 (BEAKER) (test 28 meq/L code = 355) BLOOD UREA NITROGEN 8 mg/dL - (BEAKER) (test code = 354) CREATININE (BEAKER) [...] = 364) CBC W/PLT COUNT & AUTO [id number] 23:06:00 Test Item Value Reference Range Interpretation [...] PERCENT (BEAKER) (test code = 2801) POCT-GLUCOSE [id number] 21:16:00 Test Item Value Reference Range Interpretation Comments POC-GLUCOSE METER 168 mg/dL 70-110 H TESTED AT [facility] 67 ([facility]) (test code = PAUL Tanner [place] 1538) [address] AFB CULTURE + [id number] 13:04:00 Test Item Value Reference Range Interpretation Comments CULTURE ([facility]) (test No acid-fast bacilli code = 1095) isolated in 42 days AFB SMEAR ([facility]) No acid fast bacilli (test code = 994) seen FUNGUS CULTURE + [id number] 12:05:00 Test Item Value Reference Range Interpretation Comments CULTURE ([facility]) A 2+ [place] (test code = 1095) [facility] FUNGUS SMEAR No fungi seen ([facility]) (test code = 1406) POCT-GLUCOSE [id number] 17:17:00 Test Item Value Reference Range Interpretation Comments POC-GLUCOSE METER 176 mg/dL 70-110 H TESTED AT [facility] 6720 ([facility]) (test code = NAOMITAYO Tanner [place] 1538) [address] POCT-GLUCOSE [id number] 11:57:00 Test Item Value Reference Range Interpretation Comments POC-GLUCOSE METER 392 mg/dL 70-110 H Notified R Collin STAPLETON/TESTED (BEAKER) (test code = AT [facility] 67[address] [facility] 7703 0 POCT-GLUCOSE [id number] 08:53:00 Test Item Value Reference Range Interpretation Comments POC-GLUCOSE METER 226 mg/dL 70-110 H TESTED AT [facility] 6720 (BEAKER) (test code = PAUL Tanner [facility] 1538) [address] POCT-GLUCOSE [id number] 08:53:00 Test Item Value Reference Range Interpretation Comments POC-GLUCOSE METER 67 mg/dL 70-110 L TESTED AT [facility] 6720 (BEAKER) (test code = [facility] Ciro [facility] [address] 1538) BUN AND [id number] 07:15:00 Test Item Value Reference Range Interpretation [...] APPLICABLE FOR DIALYSIS PATIEN TS. BASIC METABOLIC [id number] 07:15:00 Test Item Value Reference Range Interpretation [...] APPLICABLE FOR DIALYSIS PATIEN TS. CF RESPIRATORY [id number] 03:54:00 Test Item Value Reference Interpretation Comments Range CULTURE ([facility]) A 4+ Pseudomo viki (test code = 1095) aeruginos a CULTURE ([facility]) PSEUDOMONAS A 4+ Pseudomo viki (test code [...] Tobramycin (test S code = 25) CULTURE ([facility]) PSEUDOMONAS A 4+ Pseudomo viki (test code [...] = 25) 4+ Normal respiratory derick presentPOCT-GLUCOSE [id number] 22:30:00 Test Item Value Reference Range Interpretation Comments POC-GLUCOSE METER 136 mg/dL 70-110 H TESTED AT [place] [address] ([facility]) (test code = [place] 1538) [id number] POCT-GLUCOSE [id number] 17:29:00 Test Item Value Reference Range Interpretation Comments POC-GLUCOSE METER 148 mg/dL 70-110 H TESTED AT [facility] [address] ([facility]) (test code = [place] 1538) [id number] POCT-GLUCOSE [id number] 12:35:00 Test Item Value Reference Range Interpretation Comments POC-GLUCOSE METER 209 mg/dL 70-110 H TESTED AT [facility] (BEAKER) (test code = [place] [facility] 1538) [id number] POCT-GLUCOSE [id number] 08:39:00 Test Item Value Reference Range Interpretation Comments POC-GLUCOSE METER 122 mg/dL 70-110 H TESTED AT [facility] [address] (BEAKER) (test code = [facility] [place] [facility] 1538) [address] BUN AND [id number] 07:26:00 Test Item Value Reference Range Interpretation [...] APPLICABLE FOR DIALYSIS PATIEN TS. BASIC METABOLIC [id number] 07:26:00 Test Item Value Reference Range Interpretation [...] NOT APPLICABLE FOR DIALYSIS PATIEN TS. POCT-GLUCOSE [id number] 21:03:00 Test Item Value Reference Range Interpretation Comments POC-GLUCOSE METER 265 mg/dL 70-110 H TESTED AT [facility] 6720 (BEAKER) (test code = [place] [facility] 1538) [id number] POCT-GLUCOSE [id number] 17:18:00 Test Item Value Reference Range Interpretation Comments POC-GLUCOSE METER 164 mg/dL 70-110 H TESTED AT [place] [address] (BEAKER) (test code = PAUL Tanner [facility] 1538) 25347 POCT-GLUCOSE [id number] 13:11:00 Test Item Value Reference Range Interpretation Comments POC-GLUCOSE METER 101 mg/dL 70-110 TESTED AT [place] [address] (BEAKER) (test code = PAUL Tanner [facility] 1538) 16238 POCT-GLUCOSE [id number] 10:02:00 Test Item Value Reference Range Interpretation Comments POC-GLUCOSE METER 104 mg/dL 70-110 TEST[facility] AT [place] [address] [facility] (test code = PAUL Tanner [facility] 1538) 742[address] BASIC METABOLIC [id number] 08:46:00 Test Item Value Reference Range Interpretation Comments SODIUM (BEAKER) 138 meq/L 136-145 (test code = 381) POTASSIUM (BEAKER) 4.1 meq/L 3.5-5.1 (test code = 379) CHLORIDE (BEAKER) 102 meq/L 98-107 (test code = 382) CO2 (BEAKER) (test 27 meq/L - code = 355) BLOOD UREA NITROGEN 15 [...] APPLICABLE FOR DIALYSIS PATIEN TS. BUN AND [id number] 05:18:00 Test Item Value Reference Range Interpretation Comments BLOOD UREA NITROGEN 17 mg/dL 7-21 (BEAKER) (test code = 354) CREATININE ([facility]) 0.70 mg/dL 0.57-1.25 (test code = 358) EGFR ([facility]) (test 125 mL/min/1.73 ESTIM ATED GFR IS code = 1092) sq m NOT ACCURATE CREATININE CLEARANCE IN PREDICTING GLOMERULAR FILTRATION RATE . ESTIMATED GFR I S NOT APPLICABLE FOR DIALYSIS PATIEN TS. POCT-GLUCOSE [id number] 21:17:00 Test Item Value Reference Range Interpretation Comments POC-GLUCOSE METER 399 mg/dL 70-110 H Notified Ciro Polanco MD/TESTED ([facility]) (test code = AT [place] [address]) [facility] 7703 0 POCT-GLUCOSE [id number] 17:37:00 Test Item Value Reference Range Interpretation Comments POC-GLUCOSE METER 416 mg/dL 70-110 HH TESTED AT [place] [address] ([facility]) (test code = NAOMITAYO Tanner [place] [address]) [address] POCT-GLUCOSE [id number] 12:45:00 Test Item Value Reference Range Interpretation Comments POC-GLUCOSE METER 291 mg/dL 70-110 H TESTED AT [place] [address] ([facility]) (test code = NAOMITAYO Tanner [place] [address]) 88[address] POCT-GLUCOSE [id number] 07:12:00 Test Item Value Reference Range Interpretation Comments POC-GLUCOSE METER 237 mg/dL 70-110 H TESTED AT [place] [address] ([facility]) (test code = NAOMITAYO Tanner [place] [address]) [address] BUN AND [id number] 04:32:00 Test Item Value Reference Range Interpretation Comments BLOOD UREA NITROGEN 15 mg/dL 7-21 ([facility]) (test code = 354) CREATININE ([facility]) 0.63 mg/dL 0.57-1.25 (test code = 358) EGFR ([facility]) (test 141 mL/min/1.73 ESTIM ATED GFR IS code = 1092) sq m NOT ACCURATE CREATININE CLEARANCE IN PREDICTING GLOMERULAR FILTRATION RATE . ESTIMATED GFR I S NOT APPLICABLE FOR DIALYSIS PATIEN TS. POCT-GLUCOSE [id number] 21:34:00 Test Item Value Reference Range Interpretation Comments POC-GLUCOSE METER 321 mg/dL 70-110 H Notified Ciro Polanco MD/TESTED ([facility]) (test code = AT [place] [address]) [facility] 7703 0 POCT-GLUCOSE [id number] 17:53:00 Test Item Value Reference Range Interpretation Comments POC-GLUCOSE METER 392 mg/dL 70-110 H TESTED AT [place] [address] ([facility]) (test code = NAOMIVT Ciro [facility] 1538) 31668 POCT-GLUCOSE [id number] 12:39:00 Test Item Value Reference Range Interpretation Comments POC-GLUCOSE METER 306 mg/dL 70-110 H TESTED AT [place] [address] ([facility]) (test code = [facility] 1538) 43455 POCT-GLUCOSE [id number] 08:24:00 Test Item Value Reference Range Interpretation Comments POC-GLUCOSE METER 304 mg/dL 70-110 H TESTED AT [place] [address] ([facility]) (test code = [facility] 1538) 77974 BUN AND [id number] 05:48:00 Test Item Value Reference Range Interpretation Comments BLOOD UREA NITROGEN 19 mg/dL 7- ([facility]) (test code = 354) CREATININE ([facility]) 0.91 mg/dL 0.57-1.25 (test code = 358) EGFR ([facility]) (test 92 mL/min/1.73 ESTIMA MAGDALENO GFR IS code = 1092) sq m NOT ACCURATE CREATININE CLEARANCE IN PREDICTING GLOMERULAR FILTRATION RATE . ESTIMATED GFR I S NOT APPLICABLE FOR DIALYSIS ADELIA TS. POCT-GLUCOSE [id number] 21:41:00 Test Item Value Reference Range Interpretation Comments POC-GLUCOSE METER 221 mg/dL 70-110 H TESTED AT [place] [address] ([facility]) (test code = [facility] 1538) 75296 POCT-GLUCOSE [id number] 17:13:00 Test Item Value Reference Range Interpretation Comments POC-GLUCOSE METER 321 mg/dL 70-110 H Notified R Collin or ([facility]) (test code = Patien t [facility] 1537) test/TESTED AT [address] [address] BUN AND [id number] 16:20:00 Test Item Value Reference Range Interpretation Comments BLOOD UREA NITROGEN 10 mg/dL 7-21 ([facility]) (test code = 354) CREATININE ([facility]) 0.60 mg/dL 0.57-1.25 (test code = 358) EGFR ([facility]) (test 149 mL/min/1.73 ESTIM ATED GFR IS code = 1092) sq m NOT ACCURATE CREATININE CLEARANCE IN PREDICTING GLOMERULAR FILTRATION RATE . ESTIMATED GFR I S NOT APPLICABLE FOR DIALYSIS PATIEN TS. POCT-GLUCOSE [id number] 11:55:00 Test Item Value Reference Range Interpretation Comments POC-GLUCOSE METER 200 mg/dL 70-110 H TESTED AT [place] [address] ([facility]) (test code = PAUL Tanner [facility] 1538) 67612 POCT-GLUCOSE [id number] 08:16:00 Test Item Value Reference Range Interpretation Comments POC-GLUCOSE METER 419 mg/dL 70-110 HH TESTED AT [place] [address] ([facility]) (test code = PAUL Tanner [facility] 1538) 60479 POCT-GLUCOSE [id number] 21:09:00 Test Item Value Reference Range Interpretation Comments POC-GLUCOSE METER 376 mg/dL 70-110 H TESTED AT [place] [address] ([facility]) (test code = PAUL Tanner [facility] 1538) 97383 POCT-GLUCOSE [id number] 17:27:00 Test Item Value Reference Range Interpretation Comments POC-GLUCOSE METER 267 mg/dL 70-110 H TESTED AT [place] [address] ([facility]) (test code = PAUL Tanner [facility] 1538) 83827 POCT-GLUCOSE [id number] 13:54:00 Test Item Value Reference Range Interpretation Comments POC-GLUCOSE METER 197 mg/dL 70-110 H TESTED AT [place] [address] ([facility]) (test code = PAUL Tanner [facility] 1538) 64181 POCT-GLUCOSE [id number] 12:34:00 Test Item Value Reference Range Interpretation Comments POC-GLUCOSE METER > mg/dL 70-110 HH OUTSIDE AL ASURING ([facility]) (test code RANGETES MAGDALENO AT [place] [address] = 1538) [facility] [address] POCT-GLUCOSE [id number] 08:15:00 Test Item Value Reference Range Interpretation Comments POC-GLUCOSE METER 387 mg/dL 70-110 H Notified R Collin STAPLETON/TESTED ([facility]) (test code = AT [place] [address]) [facility] 7703 0 BASIC METABOLIC [id number] 05:17:00 Test Item Value Reference Range Interpretation [...] NOT APPLICABLE FOR DIALYSIS PATIEN TS. SPIN/CONCENTRATION [id number] 05:13:00 Test Item Value Reference Range Interpretation Comments CONCENTRATION CHARGED (BEAKER) (test Done code = 2657) URINALYSIS W/ [id number] 01:00:00 Test Item Value Reference Range Interpretation [...] 516) SOURCE(BEAKER) (test code = Urine, Voided 0516) SCREEN, [id number] 00:55:00 Test Item Value Reference Range Interpretation Comments TEST URINE (BEAKER) (test Negative code = 583) POCT-GLUCOSE [id number] 21:10:00 Test Item Value Reference Range Interpretation Comments POC-GLUCOSE METER 342 mg/dL 70-110 H TESTED AT [place] [address] ([facility]) (test code = [facility] 1538) 36331 HEMOGLOBIN [id number] 19:26:00 Test Item Value Reference Range Interpretation Comments HEMOGLOBIN A1C (BEAKER) (test code = 15.4 % 4.3-6.1 H 368) POCT-GLUCOSE [id number] 19:20:00 Test Item Value Reference Range Interpretation Comments POC-GLUCOSE METER 470 mg/dL 70-110 HH TESTED AT [place] [address] ([facility]) (test code = [facility] 1538) 97016 COMPREHENSIVE METABOLIC [id number] 19:10:00 Test Item Value Reference Range Interpretation [...] S NOT APPLICABLE FOR DIALYSIS PATIEN TS. [id number] 19:07:00 Test Item Value Reference Range Interpretation Comments PHOSPHORUS (BEAKER) (test code = 3.4 mg/dL 2.3-4.7 604) [id number] 19:07:00 Test Item Value Reference Range Interpretation Comments MAGNESIUM (BEAKER) (test code = 1.5 mg/dL 1.6-2.6 L 627) GAMMA GLUTAMYL TRANSFERASE (GGT)2017-06-17 19:07:00 Test Item Value Reference Range Interpretation Comments GAMMA GLUTAMYL TRANSFERASE (BEAKER) 24 U/L 9-64 (test code = 364) CBC W/PLT COUNT & AUTO [id number] 18:40:00 Test Item Value Reference Range Interpretation [...] (test code = 2801) AFB CULTURE + [id number] 07:09:00 Test Item Value Reference Range Interpretation Comments CULTURE (BEAKER) (test No acid-fast bacilli code = 1095) isolated in 42 days AFB SMEAR (BEAKER) No acid fast bacilli (test code = 994) seen POCT-GLUCOSE [id number] 12:37:00 Test Item Value Reference Range Interpretation Comments POC-GLUCOSE METER 215 mg/dL 70-110 H TESTED AT [facility] 6720 ([facility]) (test code = PAUL [place] 1538) 97[address] POCT-GLUCOSE [id number] 08:48:00 Test Item Value Reference Range Interpretation Comments POC-GLUCOSE METER 264 mg/dL 70-110 H TESTED AT [facility] 6720 ([facility]) (test code = PAUL [place] 1538) 86678 [id number] 06:25:00 Test Item Value Reference Range Interpretation Comments PHOSPHORUS (BEAKER) (test code = 4.3 mg/dL 2.3-4.7 604) [id number] 06:25:00 Test Item Value Reference Range Interpretation Comments MAGNESIUM (BEAKER) (test code = 1.8 mg/dL 1.6-2.6 627) BASIC METABOLIC [id number] 06:25:00 Test Item Value Reference Range Interpretation [...] PATIEN TS. CBC W/PLT COUNT & AUTO [id number] 06:01:00 Test Item Value Reference Range Interpretation [...] 0.00-0.20 (test code = 417) 0.00CF RESPIRATORY [id number] 00:39:00 Test Item Value Reference Range Interpretation [...] Sulfamethoxazole (test code = 47) CULTURE (AKER) PSEUDOMONAS A 4+ Pseudomo viki [...] = 472) 3+ Normal respiratory derick presentPOCT-GLUCOSE [id number] 21:38:00 Test Item Value Reference Range Interpretation Comments POC-GLUCOSE METER 221 mg/dL 70-110 H TESTED AT [place] [address] ([facility]) (test code = [facility] 1538) 16130 POCT-GLUCOSE [id number] 17:55:00 Test Item Value Reference Range Interpretation Comments POC-GLUCOSE METER 146 mg/dL 70-110 H TESTED AT [place] [address] ([facility]) (test code = [facility] Tanner [facility] 1538) 96471 POCT-GLUCOSE [id number] 12:18:00 Test Item Value Reference Range Interpretation Comments POC-GLUCOSE METER 249 mg/dL 70-110 H TESTED AT [place] [address] ([facility]) (test code = [facility] Tanner [facility] 1538) 05008 CBC W/PLT COUNT & AUTO [id number] 11:26:00 Test Item Value Reference Range Interpretation Comments WHITE BLOOD CELL COUNT ([facility]) 11.6 K/ L 4.0-10.0 H (test code = 775) RED BLOOD CELL COUNT ([facility]) 3.75 M/ L 4.00-5.00 L (test code = 761) HEMOGLOBIN ([facility]) (test code = 10.4 GM/DL 12.0-15.0 L 410) HEMATOCRIT ([facility]) (test code = 32.6 % 36.0-45.0 L [...] K/ L 0.00-0.20 (test code = 417) [id number] 11:23:00 Test Item Value Reference Range Interpretation Comments MAGNESIUM (BEAKER) (test code = 1.3 mg/dL 1.6-2.6 L 627) BASIC METABOLIC [id number] 11:23:00 Test Item Value Reference Range Interpretation [...] NOT APPLICABLE FOR DIALYSIS PATIEN TS. SCREEN, [id number] 11:22:00 Test Item Value Reference Range Interpretation Comments TEST URINE ([facility]) (test Negative code = 583) POCT-GLUCOSE [id number] 08:09:00 Test Item Value Reference Range Interpretation Comments POC-GLUCOSE METER 264 mg/dL 70-110 H TESTED AT [place] [address] ([facility]) (test code = [facility] Ciro [facility] 1538) 46941 POCT-GLUCOSE [id number] 22:02:00 Test Item Value Reference Range Interpretation Comments POC-GLUCOSE METER 221 mg/dL 70-110 H TESTED AT [place] [address] ([facility]) (test code = [facility] Ciro [place] 1538) [address] POCT-GLUCOSE [id number] 17:16:00 Test Item Value Reference Range Interpretation Comments POC-GLUCOSE METER 173 mg/dL 70-110 H TESTED AT [place] [address] ([facility]) (test code = NAOMIVT Ciro [place] 1538) 0[address]22 POCT-GLUCOSE [id number] 13:38:00 Test Item Value Reference Range Interpretation Comments POC-GLUCOSE METER 155 mg/dL 70-110 H TESTED AT [place] [address] ([facility]) (test code = [facility] Ciro [place] 1538) [address] POCT-GLUCOSE [id number] 09:15:00 Test Item Value Reference Range Interpretation Comments POC-GLUCOSE METER 258 mg/dL 70-110 H TESTED AT [facility] 6720 (BEAKER) (test code = PAUL [place] 1538) [address] CBC W/PLT COUNT & AUTO [id number] 06:38:00 Test Item Value Reference Range Interpretation [...] K/ L 0.00-0.20 (test code = 417) [id number] 06:33:00 Test Item Value Reference Range Interpretation Comments MAGNESIUM (BEAKER) (test code = 1.3 mg/dL 1.6-2.6 L 627) BASIC METABOLIC [id number] 06:33:00 Test Item Value Reference Range Interpretation [...] NOT APPLICABLE FOR DIALYSIS PATIEN TS. POCT-GLUCOSE [id number] 22:04:00 Test Item Value Reference Range Interpretation Comments POC-GLUCOSE METER 336 mg/dL 70-110 H TESTED AT [place] [address] [facility] (test code = PAUL [place] 1538) [address] POCT-GLUCOSE [id number] 17:40:00 Test Item Value Reference Range Interpretation Comments POC-GLUCOSE METER 281 mg/dL 70-110 H TESTED AT [place] [address] [facility] (test code = PAUL Tanner [place] 1538) 108[address] POCT-GLUCOSE [id number] 11:41:00 Test Item Value Reference Range Interpretation Comments POC-GLUCOSE METER 412 mg/dL 70-110 HH TESTED AT [facility] 6720 (BEAKER) (test code = PAUL Tanner [facility] 1538) 14097 BASIC METABOLIC [id number] 09:00:00 Test Item Value Reference Range Interpretation [...] NOT APPLICABLE FOR DIALYSIS PATIEN TS. POCT-GLUCOSE [id number] 08:49:00 Test Item Value Reference Range Interpretation Comments POC-GLUCOSE METER 444 mg/dL 70-110 HH Notified R Collin STAPLETON/TESTED (BEAKER) (test code = AT [facility] 6720 [facility] 1538) [facility] 7703 0 [id number] 08:44:00 Test Item Value Reference Range Interpretation Comments MAGNESIUM (BEAKER) (test code = 1.3 mg/dL 1.6-2.6 L 627) CBC W/PLT COUNT & AUTO [id number] 08:26:00 Test Item Value Reference Range Interpretation [...] L 0.00-0.20 (test code = 417) 0.00POCT-GLUCOSE [id number] 21:23:00 Test Item Value Reference Range Interpretation Comments POC-GLUCOSE METER 176 mg/dL 70-110 H TESTED AT [facility] 6720 (BEAKER) (test code = PAUL [place] 1538) [address] HEMOGLOBIN [id number] 21:21:00 Test Item Value Reference Range Interpretation Comments HEMOGLOBIN A1C (BEAKER) (test code = 12.1 % 4.3-6.1 H 368) POCT-GLUCOSE [id number] 18:03:00 Test Item Value Reference Range Interpretation Comments POC-GLUCOSE METER 270 mg/dL 70-110 H TESTED AT [place] [address] ([facility]) (test code = PAUL Tanner [facility] 1538) 97823 POCT-GLUCOSE [id number] 11:22:00 Test Item Value Reference Range Interpretation Comments POC-GLUCOSE METER 347 mg/dL 70-110 H Notified Ciro Polanco MD/TESTED ([facility]) (test code = AT [place] [address]) [facility] 7703 0 POCT-GLUCOSE [id number] 08:31:00 Test Item Value Reference Range Interpretation Comments POC-GLUCOSE METER 280 mg/dL 70-110 H TESTED AT [place] [address] ([facility]) (test code = PAUL Ciro [place] [address]198) [address] POCT-GLUCOSE [id number] 06:03:00 Test Item Value Reference Range Interpretation Comments POC-GLUCOSE METER 277 mg/dL 70-110 H TESTED AT [place] [address] ([facility]) (test code = NAOMITAYO Tanner [place] [address]198) [address] POCT-GLUCOSE [id number] 22:13:00 Test Item Value Reference Range Interpretation Comments POC-GLUCOSE METER 404 mg/dL 70-110 HH TESTED AT [place] [address] ([facility]) (test code = PAUL Ciro [place] [address]) [address]958 POCT-GLUCOSE [id number] 17:49:00 Test Item Value Reference Range Interpretation Comments POC-GLUCOSE METER 485 mg/dL 70-110 HH Notified Ciro Polanco MD/TESTED ([facility]) (test code = AT [place] [address]) [facility] 7703 0 POCT-GLUCOSE [id number] 11:49:00 Test Item Value Reference Range Interpretation Comments POC-GLUCOSE METER 142 mg/dL 70-110 H TESTED AT [place] [address] ([facility]) (test code = NAMOITAYO Tanner [place] [address]198) [address] CBC W/PLT COUNT & AUTO [id number] 08:39:00 Test Item Value Reference Range Interpretation Comments WHITE BLOOD CELL COUNT ([facility]) 9.2 K/ L 4.0-10.0 (test code = 775) RED BLOOD CELL COUNT ([facility]) 4.24 M/ L 4.00-5.00 (test code = [...] L 0.00-0.20 (test code = 417) 0.00POCT-GLUCOSE [id number] 08:05:00 Test Item Value Reference Range Interpretation Comments POC-GLUCOSE METER 380 mg/dL 70-110 H Notified R N MD/TESTED (BEAKER) (test code = AT [facility] 6720 [facility] 0261) [facility] 7703 0 COMPREHENSIVE METABOLIC [id number] 07:44:00 Test Item Value Reference Range Interpretation [...] S NOT APPLICABLE FOR DIALYSIS PATIEN TS. [id number] 07:41:00 Test Item Value Reference Range Interpretation Comments FERRITIN (BEAKER) (test code = 361) 126 ng/mL 5-275 Effective 09/11/2014: Reference Range ChangeNew: Male 5-275 Previous: Male 22- 322 Female 5-275 Female 10-291TSH/FREE T4 IF [id number] 07:41:00 Test Item Value Reference Range Interpretation Comments THYROID STIMULATING HORMONE 1.94 uIU/mL 0.35-4.94 (BEAKER) (test code = 772) [id number] 07:33:00 Test Item Value Reference Range Interpretation Comments MAGNESIUM (BEAKER) (test code = 1.3 mg/dL 1.6-2.6 L 627) LIPID [id number] 07:33:00 Test Item Value Reference Range Interpretation Comments TRIGLYCERIDES (BEAKER) (test code = 115 mg/dL 540) CHOLESTEROL (BEAKER) (test code = 135 mg/dL 631) HDL CHOLESTEROL (BEAKER) (test code 48 mg/dL = 976) LDL CHOLESTEROL CALCULATED (BEAKER) 64 mg/dL (test code = 633) Triglyceride Reference Range: Low Risk <150 Borderline 150-199 High Risk 200- 499 Very High Risk >=500Cholesterol Reference Range: Low Risk <200 Borderline 200-239 High Risk >240HDL Cholesterol Reference Range: Low Risk >=60 High Risk <40LDL Cholesterol Reference Range: Optimal <100 Near Optimal 100-129 Borderline 130-159 High 160-189 Very High >=190PREALBUMIN 2017-04-29 07:33:00 Test Item Value Reference Range Interpretation [...] % 20-55 L (test code = 2590) [id number] 07:24:00 Test Item Value Reference Range Interpretation Comments PROTIME (BEAKER) (test code = 13.3 seconds 11.7-14.7 759) INR (BEAKER) (test code = 370) 1.0 <=5.9 PARTIAL THROMBOPLASTIN TIME 35.2 seconds 22.5-36.0 (BEAKER) (test code = 760) RECOMMENDED COUMADIN/WARFARIN INR THERAPY RANGESSTANDARD DOSE: 2.0 - 3.0 Includes: PROPHYLAXIS for venous thrombosis, systemic embolization; TREATMENT for venous thrombosis and/or pulmonary embolus.HIGH RISK: Target INR is 2.5-3.5 for patients with mechanical heart valves.POCT-GLUCOSE [id number] 21:48:00 Test Item Value Reference Range Interpretation Comments POC-GLUCOSE METER 289 mg/dL 70-110 H TESTED AT [place] [address] ([employer]) (test code = PAUL Tanner [place] 1538) [address] POCT-GLUCOSE [id number] 18:49:00 Test Item Value Reference Range Interpretation Comments POC-GLUCOSE METER 492 mg/dL 70-110 HH TESTED AT [facility] 67 [facility] (test code = PAUL Tanner [place] 1538) [address] CF RESPIRATORY [id number] 06:58:00 Test Item Value Reference Range Interpretation Comments CULTURE ([facility]) (test PSEUDOMONAS A 1+ Ps eudomonas code [...] 1+ Normal respiratory derick presentFUNGUS CULTURE + [id number] 11:05:00 Test Item Value Reference Range Interpretation Comments CULTURE (BEAKER) A 1+ [place] glabrata (test code = 1095) FUNGUS SMEAR No fungi seen (BEAKER) (test code = 1406) POCT-GLUCOSE [id number] 12:28:00 Test Item Value Reference Range Interpretation Comments POC-GLUCOSE METER 112 mg/dL 70-110 H TESTED AT [place] [address] ([facility]) (test code = APUL Tanner [place] 1538) [address] POCT-GLUCOSE [id number] 08:33:00 Test Item Value Reference Range Interpretation Comments POC-GLUCOSE METER 144 mg/dL 70-110 H TESTED AT [place] [address] ([facility]) (test code = PAUL Tanner [facility] 1538) [id number] BUN AND [id number] 05:40:00 Test Item Value Reference Range Interpretation Comments BLOOD UREA NITROGEN 17 mg/dL 7-21 ([facility]) (test code = 354) CREATININE ([facility]) 0.60 mg/dL 0.57-1.25 (test code = 358) EGFR ([facility]) (test 149 mL/min/1.73 ESTIM ATED GFR IS code = 1092) sq m NOT ACCURATE CREATININE CLEARANCE IN PREDICTING GLOMERULAR FILTRATION RATE . ESTIMATED GFR I S NOT APPLICABLE FOR DIALYSIS PATIEN TS. POCT-GLUCOSE [id number] 21:09:00 Test Item Value Reference Range Interpretation Comments POC-GLUCOSE METER 154 mg/dL 70-110 H TESTED AT [place] [address] ([facility]) (test code = PAUL Tanner [facility] 1538) [id number] POCT-GLUCOSE [id number] 17:37:00 Test Item Value Reference Range Interpretation Comments POC-GLUCOSE METER 176 mg/dL 70-110 H TESTED AT [place] [address] ([facility]) (test code = PAUL Tanner [facility] 1538) [id number] POCT-GLUCOSE [id number] 13:59:00 Test Item Value Reference Range Interpretation Comments POC-GLUCOSE METER 126 mg/dL 70-110 H TESTED AT [place] [address] ([facility]) (test code = PAUL Tanner [facility] 1538) [id number] POCT-GLUCOSE [id number] 11:39:00 Test Item Value Reference Range Interpretation Comments POC-GLUCOSE METER 113 mg/dL 70-110 H TESTED AT [place] [address] ([facility]) (test code = PAUL Tanner [place] 1538) [id number] POCT-GLUCOSE [id number] 08:59:00 Test Item Value Reference Range Interpretation Comments POC-GLUCOSE METER 99 mg/dL 70-110 TESTED AT [place] [address] ([facility]) (test code = PAUL Tanner [facility] [id number] 1538) BUN AND [id number] 06:11:00 Test Item Value Reference Range Interpretation Comments BLOOD UREA NITROGEN 18 mg/dL 7-21 ([facility]) (test code = 354) CREATININE ([facility]) 0.65 mg/dL 0.57-1.25 (test code = 358) EGFR ([facility]) (test 136 mL/min/1.73 ESTIM ATED GFR IS code = 1092) sq m NOT ACCURATE CREATININE CLEARANCE IN PREDICTING GLOMERULAR FILTRATION RATE . ESTIMATED GFR I S NOT APPLICABLE FOR DIALYSIS PATIEN TS. POCT-GLUCOSE [id number] 21:43:00 Test Item Value Reference Range Interpretation Comments POC-GLUCOSE METER 110 mg/dL 70-110 TESTED AT [place] [id number] ([facility]) (test code = PAUL Tanner [facility] 1538) [address] POCT-GLUCOSE [id number] 18:34:00 Test Item Value Reference Range Interpretation Comments POC-GLUCOSE METER 336 mg/dL 70-110 H TESTED AT [place] [address] ([facility]) (test code = NAOMIVT Ciro [facility] 1538) [address] POCT-GLUCOSE [id number] 17:53:00 Test Item Value Reference Range Interpretation Comments POC-GLUCOSE METER 150 mg/dL 70-110 H TESTED AT [place] [address] ([facility]) (test code = PAUL Tanner [facility] 1538) [address] POCT-GLUCOSE [id number] 12:04:00 Test Item Value Reference Range Interpretation Comments POC-GLUCOSE METER 295 mg/dL 70-110 H TESTED AT [place] [address] ([facility]) (test code = NAOMIVT Ciro [facility] 1538) [address] POCT-GLUCOSE [id number] 09:25:00 Test Item Value Reference Range Interpretation Comments POC-GLUCOSE METER 52 mg/dL 70-110 L Notified Ciro Polanco MD/TESTED AT ([facility]) (test code = [address] 1538) [place] [address] BASIC METABOLIC [id number] 06:59:00 Test Item Value Reference Range Interpretation Comments SODIUM ([facility]) 138 meq/L 136-145 (test code = 381) [...] NOT APPLICABLE FOR DIALYSIS PATIEN TS. BLOOD [id number] 00:00:00 Test Item Value Reference Range Interpretation Comments CULTURE (BEAKER) (test No growth in 5 days code = 1095) BLOOD [id number] 00:00:00 Test Item Value Reference Range Interpretation Comments CULTURE (BEAKER) (test No growth in 5 days code = 1095) POCT-GLUCOSE [id number] 22:01:00 Test Item Value Reference Range Interpretation Comments POC-GLUCOSE METER 177 mg/dL 70-110 H TESTED AT [facility] 6720 [facility] (test code = [facility] Ciro [facility] 1538) [address] POCT-GLUCOSE [id number] 18:32:00 Test Item Value Reference Range Interpretation Comments POC-GLUCOSE METER 118 mg/dL 70-110 H TESTED AT [facility] 6720 (BEAKER) (test code = [facility] Ciro [facility] 1538) [address] POCT-GLUCOSE [id number] 17:29:00 Test Item Value Reference Range Interpretation Comments POC-GLUCOSE METER 69 mg/dL 70-110 L TESTED AT [facility] 6720 (BEAKER) (test code = [facility] Ciro [facility] [address] 1538) POCT-GLUCOSE [id number] 14:12:00 Test Item Value Reference Range Interpretation Comments POC-GLUCOSE METER 141 mg/dL 70-110 H TESTED AT [place] [address] ([facility]) (test code = PAUL Tanner [facility] 1538) [address] POCT-GLUCOSE [id number] 10:01:00 Test Item Value Reference Range Interpretation Comments POC-GLUCOSE METER 220 mg/dL 70-110 H TESTED AT [place] [address] ([facility]) (test code = PAUL Tanner [facility] 1538) [address] POCT-GLUCOSE [id number] 08:51:00 Test Item Value Reference Range Interpretation Comments POC-GLUCOSE METER 220 mg/dL 70-110 H TESTED AT [place] [address] ([facility]) (test code = [facility] Ciro [facility] 1538) 15088 POCT-GLUCOSE [id number] 21:45:00 Test Item Value Reference Range Interpretation Comments POC-GLUCOSE METER 306 mg/dL 70-110 H TESTED AT [place] [address] ([facility]) (test code = NAOMIVT Ciro [facility] 1538) [address] POCT-GLUCOSE [id number] 20:06:00 Test Item Value Reference Range Interpretation Comments POC-GLUCOSE METER 392 mg/dL 70-110 H TESTED AT [place] [address] ([facility]) (test code = [facility] Ciro [facility] 1538) [address] POCT-GLUCOSE [id number] 15:28:00 Test Item Value Reference Range Interpretation Comments POC-GLUCOSE METER 403 mg/dL 70-110 HH Notified R Collin or ([facility]) (test code = Patidhaval t refused repeat 1538) test/TESTED AT [address] [address] [id number] 12:43:00 Test Item Value Reference Range Interpretation Comments BLOOD UREA NITROGEN ([facility]) (test 18 mg/dL 7- code = 354) [id number] 12:43:00 Test Item Value Reference Range Interpretation Comments CREATININE ([facility]) 0.84 mg/dL 0.57-1.25 (test code = 358) EGFR ([facility]) (test 101 mL/min/1.73 ESTIM ATED GFR IS code = 1092) sq m NOT ACCURATE CREATININE CLEARANCE IN PREDICTING GLOMERULAR FILTRATION RATE . ESTIMATED GFR I S NOT APPLICABLE FOR DIALYSIS PATIEN TS. POCT-GLUCOSE [id number] 12:25:00 Test Item Value Reference Range Interpretation Comments POC-GLUCOSE METER 382 mg/dL 70-110 H TESTED AT [place] [address] ([facility]) (test code = PAUL Tanner [place] 1538) [address] POCT-GLUCOSE [id number] 08:23:00 Test Item Value Reference Range Interpretation Comments POC-GLUCOSE METER 95 mg/dL 70-110 TESTED AT [place] [address] ([facility]) (test code = PAUL Tanner [facility] [address] 1538) POCT-GLUCOSE [id number] 22:45:00 Test Item Value Reference Range Interpretation Comments POC-GLUCOSE METER 153 mg/dL 70-110 H TESTED AT [place] [address] ([facility]) (test code = PAUL Tanner [place] 1538) [address] POCT-GLUCOSE [id number] 17:40:00 Test Item Value Reference Range Interpretation Comments POC-GLUCOSE METER 316 mg/dL 70-110 H Notified R Collin or ([facility]) (test code = [facility] repeat 1538) test/TESTED AT [address] [place] [address] POCT-GLUCOSE [id number] 12:12:00 Test Item Value Reference Range Interpretation Comments POC-GLUCOSE METER 279 mg/dL 70-110 H TESTED AT [place] [address] ([facility]) (test code = [facility] Ciro [place] 1538) [address] RESPIRATORY PANEL [id number] 11:36:00 Test Item Value Reference Range Interpretation [...] (BEAKER) (test code = Inconclusive 3207) POCT-GLUCOSE [id number] 08:37:00 Test Item Value Reference Range Interpretation Comments POC-GLUCOSE METER 302 mg/dL 70-110 H Verify wit h Lab ([facility]) (test code = draw/T ESTED AT [facility] 1538) 6720 [facility] [address] [id number] 07:38:00 Test Item Value Reference Range Interpretation Comments BLOOD UREA NITROGEN ([facility]) (test 13 mg/dL 7-21 code = 354) [id number] 07:38:00 Test Item Value Reference Range Interpretation Comments CREATININE (AKER) 0.83 mg/dL 0.57-1.25 (test code = 358) EGFR ([facility]) (test 102 mL/min/1.73 ESTIM ATED GFR IS code = 1092) sq m NOT ACCURATE CREATININE CLEARANCE IN PREDICTING GLOMERULAR FILTRATION RATE . ESTIMATED GFR I S NOT APPLICABLE FOR DIALYSIS PATIEN TS. POCT-GLUCOSE [id number] 23:25:00 Test Item Value Reference Range Interpretation Comments POC-GLUCOSE METER 376 mg/dL 70-110 H TESTED AT [facility] 6720 ([facility]) (test code = PAUL Tanner [facility] 1538) [address] POCT-GLUCOSE [id number] 21:02:00 Test Item Value Reference Range Interpretation Comments POC-GLUCOSE METER 339 mg/dL 70-110 H Notified R N MD/TESTED ([facility]) (test code = AT [facility] 6720 [facility] [address] SPIN/CONCENTRATION [id number] 16:49:00 Test Item Value Reference Range Interpretation Comments CONCENTRATION CHARGED ([facility]) (test Done code = 2657) URINE [id number] 14:16:00 Test Item Value Reference Range Interpretation Comments CULTURE ([facility]) (test code = See comment 1095) <10,000 col/mL YEAST>100,000 col/mL skin floraPOCT-GLUCOSE [id number] 12:23:00 Test Item Value Reference Range Interpretation Comments POC-GLUCOSE METER 259 mg/dL 70-110 H TESTED AT [place] [address] ([facility]) (test code = NAOMIVT Ciro [facility] 1538) [address] [id number] 10:26:00 Test Item Value Reference Range Interpretation Comments CREATININE ([facility]) 0.77 mg/dL 0.57-1.25 (test code = 358) EGFR ([facility]) (test 112 mL/min/1.73 ESTIM ATED GFR IS code = 1092) sq m NOT ACCURATE CREATININE CLEARANCE IN PREDICTING GLOMERULAR FILTRATION RATE . ESTIMATED GFR I S NOT APPLICABLE FOR DIALYSIS PATIEN TS. [id number] 10:08:00 Test Item Value Reference Range Interpretation Comments BLOOD UREA NITROGEN ([facility]) (test 17 mg/dL 7- code = 354) POCT-GLUCOSE [id number] 09:04:00 Test Item Value Reference Range Interpretation Comments POC-GLUCOSE METER 173 mg/dL 70-110 H TESTED AT [place] [address] ([facility]) (test code = PAUL Ciro [facility] 1538) [address] POCT-GLUCOSE [id number] 21:10:00 Test Item Value Reference Range Interpretation Comments POC-GLUCOSE METER 151 mg/dL 70-110 H TESTED AT [place] [address] ([facility]) (test code = NAOMIVT Ciro [facility] 1538) [address] SCREEN, [id number] 20:03:00 Test Item Value Reference Range Interpretation Comments TEST URINE ([facility]) (test Negative code = 583) POCT-GLUCOSE [id number] 17:01:00 Test Item Value Reference Range Interpretation Comments POC-GLUCOSE METER 252 mg/dL 70-110 H TESTED AT [facility] 67 [facility] (test code = PAUL Tanner [place] 1538) [address] BASIC METABOLIC [id number] 16:19:00 Test Item Value Reference Range Interpretation [...] S NOT APPLICABLE FOR DIALYSIS PATIEN TS. [id number] 16:15:00 Test Item Value Reference Range Interpretation Comments MAGNESIUM (BEAKER) (test code = 1.4 mg/dL 1.6-2.6 L 627) POCT-GLUCOSE [id number] 11:37:00 Test Item Value Reference Range Interpretation Comments POC-GLUCOSE METER > mg/dL 70-110 HH OUTSIDE ME ASURING (BEAKER) (test code RANGENot ified JORDON STAPLETON/TESTED = 1538) AT [facility] [address] [place]JAKI [place] [address] HEMOGLOBIN [id number] 11:03:00 Test Item Value Reference Range Interpretation Comments HEMOGLOBIN A1C (BEAKER) (test code = 12.5 % 4.3-6.1 H 368) POCT-GLUCOSE [id number] 08:22:00 Test Item Value Reference Range Interpretation Comments POC-GLUCOSE METER 434 mg/dL 70-110 HH Notified R Collin STAPLETON/TESTED (BEAKER) (test code = AT [facility] 6720 [place] 9993) [facility] [address] COMPREHENSIVE METABOLIC [id number] 06:58:00 Test Item Value Reference Range Interpretation [...] S NOT APPLICABLE FOR DIALYSIS PATIEN TS. [id number] 06:43:00 Test Item Value Reference Range Interpretation Comments MAGNESIUM (BEAKER) (test code = 1.6 mg/dL 1.6-2.6 627) [id number] 06:30:00 Test Item Value Reference Range Interpretation Comments PHOSPHORUS (BEAKER) (test code = 2.9 mg/dL 2.3-4.7 604) GAMMA GLUTAMYL TRANSFERASE (GGT)2017-03-24 06:29:00 Test Item Value Reference Range Interpretation Comments GAMMA GLUTAMYL TRANSFERASE (BEAKER) 28 U/L 9-64 (test code = 364) CBC W/PLT COUNT & AUTO [id number] 06:11:00 Test Item Value Reference Range Interpretation [...] L 0.00-0.20 (test code = 417) 0.00POCT-GLUCOSE [id number] 00:12:00 Test Item Value Reference Range Interpretation Comments POC-GLUCOSE METER 403 mg/dL 70-110 HH Notified R N MD/TESTED (BEAKER) (test code = AT [address] 1538) [facility] 770 0 URINALYSIS W/ [id number] 21:19:00 Test Item Value Reference Range Interpretation [...] SOURCE(BEAKER) (test code Urine, Clean Catch = 7745) POCT-GLUCOSE [id number] 19:36:00 Test Item Value Reference Range Interpretation Comments POC-GLUCOSE METER 405 mg/dL 70-110 HH Notified R N MD/TESTED (BEAKER) (test code = AT [address] 1538) [place] [address] POCT-LACTIC ACID, [id number] 18:38:00 Test Item Value Reference Range Interpretation Comments POC-LACTIC ACID, 1.9 mmol/L 0.9-1.7 H TESTED AT [facility] 6720 VENOUS (BEAKER) (test [place] code = 2805) [address] CREATINE KINASE (CK), TOTAL AND [id number] 18:36:00 Test Item Value Reference Range Interpretation Comments CREATINE KINASE TOTAL (BEAKER) 39 U/L 29-200 (test code = 380) CREATINE KINASE-MB (BEAKER) (test 0.5 ng/mL 0.0-6.6 code = 750) CREATINE KINASE-MB INDEX (BEAKER) 1.3 % (test code = 395) Effective 09/11/2014: CK-MB Reference Range ChangeNew: 0.0-6.6 Previous: 0.0-4.9CK-MB Reference Range:<6.7 Normal6.7-10.0 Borderline>10.0 Abnormal TROPONIN [id number] 18:36:00 Test Item Value Reference Range Interpretation Comments TROPONIN I (BEAKER) (test code = 397) < ng/mL 0.00-0.03 Effective 09/11/2014: Reference Range ChangeNew: 0.00-0.03 Previous 0.00- 0.15Troponin I (TnI) levelsmust be interpreted in the context of the [...] failure, acidosis, acute neurological disease, and persistent tachyarrhythmia.B-TYPE NATRIURETIC FACTOR (BNP) 2017-03-23 18:34:00 Test Item Value Reference Range Interpretation Comments B-TYPE NATRIURETIC PEPTIDE (BEAKER) 43 pg/mL 0-100 (test code = 700) [id number] 18:28:00 Test Item Value Reference Range Interpretation Comments MAGNESIUM (BEAKER) (test code = 1.7 mg/dL 1.6-2.6 627) BASIC METABOLIC [id number] 18:28:00 Test Item Value Reference Range Interpretation [...] S NOT APPLICABLE FOR DIALYSIS PATIEN TS. [id number] 18:24:00 Test Item Value Reference Range Interpretation Comments PROTIME (BEAKER) (test code = 13.1 seconds 11.7-14.7 759) INR (BEAKER) (test code = 370) 1.0 <=5.9 PARTIAL THROMBOPLASTIN TIME 32.9 seconds 22.5-36.0 (BEAKER) (test code = 760) RECOMMENDED COUMADIN/WARFARIN INR THERAPY RANGESSTANDARD DOSE: 2.0 - 3.0 Includes: PROPHYLAXIS for venous thrombosis, systemic embolization; TREATMENT for venous thrombosis and/or pulmonary embolus.HIGH RISK: Target INR is 2.5-3.5 for patients with mechanical heart valves.CBC W/PLT COUNT & AUTO [id number] 18:16:00 Test Item Value Reference Range Interpretation [...] (test code = 417) 0.00AFB CULTURE + [id number] 18:28:00 Test Item Value Reference Range Interpretation Comments CULTURE (BEAKER) (test No acid-fast bacilli code = 1095) isolated in 42 days AFB SMEAR (BEAKER) No acid fast bacilli (test code = 994) seen AFB CULTURE + [id number] 12:13:00 Test Item Value Reference Range Interpretation Comments CULTURE (BEAKER) (test No acid-fast bacilli code = 1095) isolated in 42 days AFB SMEAR (BEAKER) No acid fast bacilli (test code = 994) seen FUNGUS CULTURE + [id number] 18:28:00 Test Item Value Reference Range Interpretation Comments CULTURE (BEAKER) A 2+ [place] albicans (test code = 1095) FUNGUS SMEAR No fungi seen (BEAKER) (test code = 1406) CF RESPIRATORY [id number] 04:50:00 Test Item Value Reference Range Interpretation [...] A 2+ Pseudomo viki (test code = 07439) AERUGINOSA aerugino saof a second type Amikacin [...] or >4 2+ Normal respiratory derick presentBLOOD [id number] 18:00:00 Test Item Value Reference Range Interpretation Comments CULTURE (BEAKER) (test No growth in 5 days code = 1095) BLOOD [id number] 18:00:00 Test Item Value Reference Range Interpretation Comments CULTURE (BEAKER) (test No growth in 5 days code = 1095) POCT-GLUCOSE [id number] 12:39:00 Test Item Value Reference Range Interpretation Comments POC-GLUCOSE METER 352 mg/dL 70-110 H TESTED AT [facility] 6720 (BEAKER) (test code = [place] 1538) [address] BASIC METABOLIC [id number] 10:03:00 Test Item Value Reference Range Interpretation [...] PATIEN TS. CBC W/PLT COUNT & AUTO [id number] 09:23:00 Test Item Value Reference Range Interpretation [...] EOSINOPHILS ABSOLUTE COUNT 0.37 K/ L 0.00-0.50 ([facility]) (test code = 416) BASOPHILS ABSOLUTE COUNT ([facility]) 0.03 K/ L 0.00-0.20 (test code = 417) 0.00POCT-GLUCOSE [id number] 08:55:00 Test Item Value Reference Range Interpretation Comments POC-GLUCOSE METER 82 mg/dL 70-110 TESTED AT [place] [address] ([facility]) (test code = [facility] [address] 1538) POCT-GLUCOSE [id number] 21:23:00 Test Item Value Reference Range Interpretation Comments POC-GLUCOSE METER 264 mg/dL 70-110 H TESTED AT [place] [address] ([facility]) (test code = [facility] 1538) [address] POCT-GLUCOSE [id number] 17:56:00 Test Item Value Reference Range Interpretation Comments POC-GLUCOSE METER 340 mg/dL 70-110 H TESTED AT [place] [address] ([facility]) (test code = [facility] 1538) [address] POCT-GLUCOSE [id number] 12:16:00 Test Item Value Reference Range Interpretation Comments POC-GLUCOSE METER 386 mg/dL 70-110 H TESTED AT [place] [address] ([facility]) (test code = [facility] 1538) [address] POCT-GLUCOSE [id number] 08:24:00 Test Item Value Reference Range Interpretation Comments POC-GLUCOSE METER 105 mg/dL 70-110 TESTED AT [place] [address] ([facility]) (test code = [facility] 1538) [address] BUN AND [id number] 06:44:00 Test Item Value Reference Range Interpretation Comments BLOOD UREA NITROGEN 5 mg/dL 7-21 L ([facility]) (test code = 354) CREATININE ([facility]) 0.56 mg/dL 0.57-1.25 L (test code = 358) EGFR ([facility]) (test 161 mL/min/1.73 ESTIM ATED GFR IS code = 1092) sq m NOT ACCURATE CREATININE CLEARANCE IN PREDICTING GLOMERULAR FILTRATION RATE . ESTIMATED GFR I S NOT APPLICABLE FOR DIALYSIS PATIEN TS. POCT-GLUCOSE [id number] 23:49:00 Test Item Value Reference Range Interpretation Comments POC-GLUCOSE METER 211 mg/dL 70-110 H TESTED AT [place] [address] ([facility]) (test code = NAOMINE Ciro [place] 1538) [address] POCT-GLUCOSE [id number] 19:36:00 Test Item Value Reference Range Interpretation Comments POC-GLUCOSE METER 288 mg/dL 70-110 H TESTED AT [place] [address] ([facility]) (test code = [facility] R [place] 1538) [address] BUN AND [id number] 18:20:00 Test Item Value Reference Range Interpretation Comments BLOOD UREA NITROGEN 8 mg/dL 7-21 ([facility]) (test code = 354) CREATININE ([facility]) 0.77 mg/dL 0.57-1.25 (test code = 358) EGFR ([facility]) (test 112 mL/min/1.73 ESTIM ATED GFR IS code = 1092) sq m NOT ACCURATE CREATININE CLEARANCE IN PREDICTING GLOMERULAR FILTRATION RATE . ESTIMATED GFR I S NOT APPLICABLE FOR DIALYSIS PATIEN TS. POCT-GLUCOSE [id number] 17:09:00 Test Item Value Reference Range Interpretation Comments POC-GLUCOSE METER 388 mg/dL 70-110 H TESTED AT [place] [address] ([facility]) (test code = PAUL R [place] 1538) [address] POCT-GLUCOSE [id number] 13:54:00 Test Item Value Reference Range Interpretation Comments POC-GLUCOSE METER 445 mg/dL 70-110 HH TESTED AT [place] [address] ([facility]) (test code = [facility] R [place] 1538) [address] POCT-GLUCOSE [id number] 11:39:00 Test Item Value Reference Range Interpretation Comments POC-GLUCOSE METER 349 mg/dL 70-110 H TESTED AT [place] [address] ([facility]) (test code = [facility] [place] 1538) [address] POCT-GLUCOSE [id number] 09:08:00 Test Item Value Reference Range Interpretation Comments POC-GLUCOSE METER 52 mg/dL 70-110 L TESTED AT [place] [address] ([facility]) (test code = [facility] [place] [address] 1538) POCT-GLUCOSE [id number] 22:14:00 Test Item Value Reference Range Interpretation Comments POC-GLUCOSE METER 99 mg/dL 70-110 TESTED AT [facility] 6720 (BEAKER) (test code = [facility] Ciro [facility] [address] 1538) POCT-GLUCOSE [id number] 18:07:00 Test Item Value Reference Range Interpretation Comments POC-GLUCOSE METER 209 mg/dL 70-110 H TESTED AT [facility] 67 (BEAKER) (test code = [facility] Ciro [facility] 1538) [address] POCT-GLUCOSE [id number] 12:13:00 Test Item Value Reference Range Interpretation Comments POC-GLUCOSE METER 101 mg/dL 70-110 TESTED AT [place] [address] (BEAKER) (test code = [facility] 1538) [address] POCT-GLUCOSE [id number] 08:28:00 Test Item Value Reference Range Interpretation Comments POC-GLUCOSE METER 311 mg/dL 70-110 H TESTED AT [place] [address] (BEAKER) (test code = [facility] 1538) [address] BASIC METABOLIC [id number] 04:01:00 Test Item Value Reference Range Interpretation [...] PATIEN TS. CBC W/PLT COUNT & AUTO [id number] 03:36:00 Test Item Value Reference Range Interpretation [...] L 0.00-0.20 (test code = 417) 0.00POCT-GLUCOSE [id number] 22:02:00 Test Item Value Reference Range Interpretation Comments POC-GLUCOSE METER 129 mg/dL 70-110 H TESTED AT [place] [address] (BEAKER) (test code = PAUL Tanner [place] 1538) [address] POCT-GLUCOSE [id number] 17:43:00 Test Item Value Reference Range Interpretation Comments POC-GLUCOSE METER 399 mg/dL 70-110 H TESTED AT [place] [address] (BEAKER) (test code = PAUL Tanner [place] 1538) [address] SPIN/CONCENTRATION [id number] 13:27:00 Test Item Value Reference Range Interpretation Comments CONCENTRATION CHARGED (BEAKER) (test Done code = 2657) POCT-GLUCOSE [id number] 12:38:00 Test Item Value Reference Range Interpretation Comments POC-GLUCOSE METER 312 mg/dL 70-110 H TESTED AT [place] [address] ([facility]) (test code = PAUL Tanner [facility] 1538) [address] CBC W/PLT COUNT & AUTO [id number] 09:37:00 Test Item Value Reference Range Interpretation [...] 0.00-0.20 (test code = 417) 0.00HCG, QUANTITATIVE, [id number] 09:10:00 Test Item Value Reference Range Interpretation Comments GONADOTROPIN, CHORIONIC (HCG) QUANT < mIU/mL 0-10 (BEAKER) (test code = 649) Non- Females: <10 mIU/mL Females: Gestation Age Reference Range(mIU/mL) 0.2-1 Week 5-50 1-2 Weeks 50-500 2-3 Weeks 100-5,000 3-4 Weeks 500-10,000 4-5 Weeks 1,000-50,000 5-6 Weeks 10,000-100,000 6-8 Weeks 15,000- 200,000 2-3 Months 10,000-100,000PREGNANCY SCREEN, [id number] 09:05:00 Test Item Value Reference Range Interpretation Comments TEST URINE (BEAKER) (test Negative code = 583) GAMMA GLUTAMYL TRANSFERASE (GGT)2017-01-01 09:02:00 Test Item Value Reference Range Interpretation Comments GAMMA GLUTAMYL TRANSFERASE (BEAKER) 22 U/L 9-64 (test code = 364) COMPREHENSIVE METABOLIC [id number] 09:02:00 Test Item Value Reference Range Interpretation [...] NOT APPLICABLE FOR DIALYSIS PATIEN TS. POCT-GLUCOSE [id number] 07:27:00 Test Item Value Reference Range Interpretation Comments POC-GLUCOSE METER 327 mg/dL 70-110 H TESTED AT [facility] [address] ([facility]) (test code = [facility] [place] 1538) [address] POCT-GLUCOSE [id number] 21:00:00 Test Item Value Reference Range Interpretation Comments POC-GLUCOSE METER 218 mg/dL 70-110 H TESTED AT [facility] [address] ([facility]) (test code = [facility] [place] 1538) [id number] LACTIC ACID, VENOUS, WHOLE [id number] 17:38:00 Test Item Value Reference Range Interpretation Comments LACTATE BLOOD VENOUS (2) (BEAKER) 2.3 mmol/L 0.5-2.2 H (test code = 2872) Effective 02/26/2016: Units/Reference Range ChangeNew: 0.5-2.2 mmol/L Previous: 5- 20 mg/dLPOCT-GLUCOSE [id number] 17:13:00 Test Item Value Reference Range Interpretation Comments POC-GLUCOSE METER 97 mg/dL 70-110 TESTED AT [facility] [address] (BEAKER) (test code = [place] [address] 1538) KETONE, [id number] 15:38:00 Test Item Value Reference Range Interpretation Comments KETONES, BLOOD (BEAKER) (test code 0.1 mmol/L <0.4 = 1103) CBC W/PLT COUNT & AUTO [id number] 15:28:00 Test Item Value Reference Range Interpretation [...] 0.00-0.20 (test code = 417) 0.00COMPREHENSIVE METABOLIC [id number] 15:27:00 Test Item Value Reference Range Interpretation [...] APPLICABLE FOR DIALYSIS PATIEN TS. POCT-LACTIC ACID, [id number] 15:01:00 Test Item Value Reference Range Interpretation Comments POC-LACTIC ACID, 2.5 mmol/L 0.9-1.7 H TESTED AT [facility] 6720 VENOUS (BEAKER) (test PAUL Tanner [place] code = 2805) [address] POCT-GLUCOSE [id number] 14:59:00 Test Item Value Reference Range Interpretation Comments POC-GLUCOSE METER > mg/dL 70-110 HH OUTSIDE ME ASURING (BEAKER) (test code RANGETES MAGDALENO AT [facility] 6720 = 1538) [place] [facility] [address] FUNGUS CULTURE + [id number] 19:28:00 Test Item Value Reference Range Interpretation Comments CULTURE (BEAKER) A 2+ [place] albicans (test code = 1095) FUNGUS SMEAR No fungi seen (BEAKER) (test code = 1406) CULTURE (BEAKER) A 1 out of 3 media (test code = Aspergillus 70068) fumigatusThis i s an appended report . These organism result s have been appended t o a previously sylwia l verified report . CBC W/PLT COUNT & AUTO [id number] 14:39:00 Test Item Value Reference Range Interpretation [...] MORPHOLOGY (BEAKER) (test code = Normal 762) [id number] 08:09:00 Test Item Value Reference Range Interpretation Comments MAGNESIUM (BEAKER) (test code = 1.4 mg/dL 1.6-2.6 L 627) BASIC METABOLIC [id number] 08:09:00 Test Item Value Reference Range Interpretation Comments SODIUM (BEAKER) 137 meq/L 136-145 (test code = 381) POTASSIUM (BEAKER) 4.1 meq/L 3.5-5.1 (test code = 379) CHLORIDE ([facility]) 98 meq/L 98-107 (test code = 382) CO2 ([facility]) (test 18 meq/L 22-29 L code = 355) BLOOD UREA NITROGEN 14 mg/dL 7-21 ([facility]) (test code = 354) CREATININE ([facility]) 0.98 mg/dL 0.57-1.25 (test code = 358) GLUCOSE RANDOM 287 mg/dL 70-105 H ([facility]) (test code = 652) CALCIUM ([facility]) 8.9 mg/dL 8.4-10.2 (test code = 697) EGFR ([facility]) (test 85 mL/min/1.73 ESTIMA MAGDALENO GFR IS code = 1092) sq m NOT ACCURATE CREATININE CLEARANCE IN PREDICTING GLOMERULAR FILTRATION RATE . ESTIMATED GFR I S NOT APPLICABLE FOR DIALYSIS PATIEN TS. POCT-GLUCOSE [id number] 15:20:00 Test Item Value Reference Range Interpretation Comments POC-GLUCOSE METER 212 mg/dL 70-110 H TESTED AT [place] [address] ([facility]) (test code = PAUL Tanner [place] [address]) [address] POCT-GLUCOSE [id number] 13:55:00 Test Item Value Reference Range Interpretation Comments POC-GLUCOSE METER 49 mg/dL 70-110 L Notified Ciro Polanco MD/TESTED AT ([facility]) (test code = [place] [address]) [facility] [address] 0 POCT-GLUCOSE [id number] 12:02:00 Test Item Value Reference Range Interpretation Comments POC-GLUCOSE METER 386 mg/dL 70-110 H Notified Ciro Polanco MD/TESTED ([facility]) (test code = AT [place] [address]) [facility] 7703 0 POCT-GLUCOSE [id number] 08:21:00 Test Item Value Reference Range Interpretation Comments POC-GLUCOSE METER 173 mg/dL 70-110 H TESTED AT [place] [address] ([facility]) (test code = PAUL Tnaner [place] [address]) [address] POCT-GLUCOSE [id number] 23:54:00 Test Item Value Reference Range Interpretation Comments POC-GLUCOSE METER 186 mg/dL 70-110 H TESTED AT [place] [address] ([facility]) (test code = PAUL Tanner [place] [address]) [address] POCT-GLUCOSE [id number] 20:57:00 Test Item Value Reference Range Interpretation Comments POC-GLUCOSE METER 292 mg/dL 70-110 H TESTED AT [facility] 6720 ([facility]) (test code = PAUL Tanner [facility] 1538) [address] POCT-GLUCOSE [id number] 18:30:00 Test Item Value Reference Range Interpretation Comments POC-GLUCOSE METER > mg/dL 70-110 HH OUTSIDE ME ASURING (BEAKER) (test code RANGENot ified RN or MD = 1538) Patient refused repeat test/TESTED AT [address] [address] POCT-GLUCOSE [id number] 12:56:00 Test Item Value Reference Range Interpretation Comments POC-GLUCOSE METER 233 mg/dL 70-110 H TESTED AT [place] [address] ([facility]) (test code = PAUL Tanner [facility] 1538) [address] BLOOD [id number] 10:00:00 Test Item Value Reference Range Interpretation Comments CULTURE (BEAKER) (test No growth in 5 days code = 1095) BLOOD [id number] 10:00:00 Test Item Value Reference Range Interpretation Comments CULTURE (BEAKER) (test No growth in 5 days code = 1095) CBC W/PLT COUNT & AUTO [id number] 09:19:00 Test Item Value Reference Range Interpretation [...] K/ L 0.00-0.20 (test code = 417) [id number] 07:34:00 Test Item Value Reference Range Interpretation Comments MAGNESIUM (BEAKER) (test code = 1.4 mg/dL 1.6-2.6 L 627) BASIC METABOLIC [id number] 07:34:00 Test Item Value Reference Range Interpretation [...] NOT APPLICABLE FOR DIALYSIS PATIEN TS. POCT-GLUCOSE [id number] 21:23:00 Test Item Value Reference Range Interpretation Comments POC-GLUCOSE METER 230 mg/dL 70-110 H TESTED AT [facility] 6720 ([facility]) (test code = PAUL Tanner [place] 1538) [address] POCT-GLUCOSE [id number] 17:41:00 Test Item Value Reference Range Interpretation Comments POC-GLUCOSE METER 195 mg/dL 70-110 H TESTED AT [facility] 67 ([facility]) (test code = PAUL Tanner [place] 1538) [address] CBC W/PLT COUNT & AUTO [id number] 15:23:00 Test Item Value Reference Range Interpretation [...] (BEAKER) (test code = Normal 762) POCT-GLUCOSE [id number] 11:49:00 Test Item Value Reference Range Interpretation Comments POC-GLUCOSE METER 370 mg/dL 70-110 H Notified R N or (BEAKER) (test code = Patien t refused repeat 1537) test/TESTED AT [address] [address] POCT-GLUCOSE [id number] 11:45:00 Test Item Value Reference Range Interpretation Comments POC-GLUCOSE METER 424 mg/dL 70-110 HH Notified R N or MD (BEAKER) (test code = Patien t refused repeat 1537) test/TESTED AT [facility] [address] [place] [address] CF RESPIRATORY [id number] 10:46:00 Test Item Value Reference Range Interpretation [...] A 4+ Pseudomo viki (test code = 44714) AERUGINOSA aerugino saof a second type Amikacin [...] = 25) Resistant <0 or >4 CULTURE ([facility]) PSEUDOMONAS A Pseudomonas (test code = 81241) AERUGINOSA aerugino saof a third type Amikacin [...] or >4 3+ Normal respiratory derick presentPOCT-GLUCOSE [id number] 10:07:00 Test Item Value Reference Range Interpretation Comments POC-GLUCOSE METER 112 mg/dL 70-110 H TESTED AT [facility] 6720 ([facility]) (test code = PAUL Tanner [place] 1538) [address] [id number] 07:09:00 Test Item Value Reference Range Interpretation Comments MAGNESIUM ([facility]) (test code = 1.6 mg/dL 1.6-2.6 627) BASIC METABOLIC [id number] 07:09:00 Test Item Value Reference Range Interpretation [...] NOT APPLICABLE FOR DIALYSIS PATIEN TS. POCT-GLUCOSE [id number] 20:59:00 Test Item Value Reference Range Interpretation Comments POC-GLUCOSE METER 294 mg/dL 70-110 H TESTED AT [place] [address] ([facility]) (test code = PAUL Tanner [facility] 1538) [address] POCT-GLUCOSE [id number] 18:18:00 Test Item Value Reference Range Interpretation Comments POC-GLUCOSE METER 238 mg/dL 70-110 H TESTED AT [place] [address] ([facility]) (test code = PAUL Tanner [facility] 1538) [address] AFB CULTURE + [id number] 17:58:00 Test Item Value Reference Range Interpretation Comments CULTURE ([facility]) (test No acid-fast bacilli code = 1095) isolated in 42 days AFB SMEAR ([facility]) No acid fast bacilli (test code = 994) seen SPIROMETRY (IN CLINIC)2015-06-14 21:42:43Marco Smith MD 06/14/2015 4:42 PMPlease see graphic report for final interpretation. Date of testDate of test: 05/07/1527GRZ6LJL8: 1.33 LFEV1 % EXP: 43 %FVCFVC: 2.06 LFVC % EXPECT: 58 %FEV1 / FVCFEV1 / FVC: 0.67 %FEV1 / FVC % EXP: 78 %FEFFEF 25-75%: 0.7 l/minFEF % EXPEC: 20 % Marco Smith MD - 06/14/2015 4:42 PM CDTPlease see graphic report for final interpretation.Date of testDate of test: 05/07/1594AMV6CVQ4: 1.33 LFEV1 % EXP: 43 %FVCFVC: 2.06 LFVC % EXPECT: 58 %FEV1 / FVCFEV1 / FVC: 0.67 %FEV1 / FVC % EXP: 78 %FEFFEF 25-75%: 0.7 l/minFEF % EXPEC: 20 %
--- NOTE | 2022-11-29 15:23 | RAD REPORT ---
EXAM DESCRIPTION: US - UPPER EXTREMITY VENOUS UNILATE - 11/29/2022 2:56 pm CLINICAL HISTORY: Right arm pain and swelling, soft tissue blistering COMPARISON: None. TECHNIQUE: Real-time sonographic evaluation of the right upper extremity deep venous systems was per formed. FINDINGS: Normal compressibility, flow augmentation, phasic flow and spontaneous flow are identified in the right upper extremity deep venous system. No intraluminal filling defects seen. Internal jugu lar and subclavian veins are normal as well. The posterior column wound there is a 1.4 centimeter oval anechoic focus just deep to the skin surfac e. This would be consistent with a fluid-filled blister. IMPRESSION: No DVT in the right upper extremity.
--- NOTE | 2022-11-29 16:27 | EDPHYS ---
Physician Documentation [facility] Name: Ester Hagen Age: 32 yrs Sex: Female : 1990 Arrival Date: 11/29/2022 Time: 13:32 Bed DX3 Private MD: ED Physician Helio Diaz HPI: 11/29 16:23 This 32 yrs old Black Female presents to ER via Ambulatory with complaints of Arm jmm Problem. 16:23 This is a 32-year-old female with history of asthma, cystic fibrosis, diabetes mellitus jmm that presents emerged department with complaints of right arm pain with radiation to the right hand. Patient states that she noticed a area of blister on her right upper arm. Denies any known injury.. Historical: - Allergies: 13:55 Betadine; ll1 13:55 Decadron; ll1 13:55 Amikacin; ll1 13:55 Iodinated Contrast Media - IV Dye; ll1 - PMHx: 13:55 Asthma; CYSTIC FIBROSIS; Diabetes - IDDM; ll1 - PSHx: 13:56 lupe cath; ll1 - Immunization history:: Client reports receiving the 2nd dose of the Covid vaccine. - Social history:: Smoking status: Patient denies any tobacco usage or history of. ROS: 16:23 Constitutional: Negative for fever, chills, and weight loss, Cardiovascular: Negative jmm for chest pain, palpitations, and edema, Respiratory: Negative for shortness of breath, cough, wheezing, and pleuritic chest pain. 16:23 MS/extremity: Positive for pain. 16:23 Skin: Positive for swelling. 16:23 All other systems are negative. Exam: 16:23 Constitutional: This is a well developed, well nourished patient who is awake, alert, jmm and in no acute distress. Head/Face: atraumatic. Eyes: EOMI, no conjunctival erythema appreciated ENT: Moist Mucus Membranes Neck: Trachea midline, Supple Chest/axilla: Normal chest wall appearance and motion. Cardiovascular: Regular rate and rhythm. No edema appreciated Respiratory: Normal respirations, no respiratory distress appreciated Abdomen/GI: Non distended Back: Normal ROM Skin: General appearance color normal 16:23 Musculoskeletal/extremity: Full range of motion appreciated to the right elbow, right wrist. Compartments are soft. Full radial pulse, full exchange trouble shooter strength, neurovascular intact. 16:23 Skin: Bulla noted to the right upper arm. 16:23 Neuro: Orientation: is normal, Mentation: is normal, Memory: is normal. 16:23 Psych: Behavior/mood is pleasant, cooperative. Vital Signs: 13:53 BP 136 / 103; Pulse 102; Resp 17; Temp 98.4; Pulse Ox 99% ; Weight 49.9 kg; Height 5 ll1 ft. 1 in. (154.94 cm); Pain 5/10; 13:53 Body Mass Index 20.78 (49.90 kg, 154.94 cm) ll1 MDM: 14:27 Patient medically screened. jmm 16:24 Data reviewed: vital signs, nurses notes. I considered the following discharge jmm prescriptions or medication management in the emergency department Medications were administered in the Emergency Department. See MAR. Counseling: I had a detailed discussion with the patient and/or guardian regarding: the historical points, exam findings, and any diagnostic results supporting the discharge/admit diagnosis, radiology results, the need for outpatient follow up, to return to the emergency department if symptoms worsen or persist or if there are any questions or concerns that arise at home. ED course: Patient is alert nontoxic in appearance in the ED. Will treat with oral antibiotics. Patient vies follow-up PCP and otherwise given strict return precautions. Patient understood agrees plan of care. 11/29 14:58 Order name: UPPER EXTREMITY VENOUS UNILATE; Complete Time: 15:24 EDMS Administered Medications: No medications were administered Disposition: 17:17 Co-signature as Attending Physician, Helio Diaz MD I agree with the assessment and kdr plan of care. Disposition Summary: 11/29/22 16:26 Discharge Ordered Location: Home jm Condition: Stable jmm Diagnosis - Bullous disorder, unspecified jmm Followup: jmm - With: Private Physician - When: 2 - 3 days - Reason: Recheck today's complaints, Continuance of care, Re-evaluation by your physician Discharge Instructions: - Discharge Summary Sheet [facility] Forms: - Medication Reconciliation Form [facility] - Thank You Letter jmm - Antibiotic Education jmm - Prescription Opioid Use jmm Prescriptions: - mupirocin 2 % Topical ointment - apply 1 application by TOPICAL route 3 times per day for 10 days; 1 tube; [facility] Refills: 0, Product Selection Permitted - Doxycycline Hyclate 100 mg Oral Tablet - take 1 tablet by ORAL route every 12 hours; 20 tablet; Refills: 0, Product jmm Selection Permitted Signatures: Dispatcher [employer] EDHelio Lazo MD MD kdr Mickail, Joel, PA PA jmm Lewis, Lynsay RN RN ll1 Corrections: (The following items were deleted from the chart) 13:56 13:55 PSHx: None; ll1 1 14:58 14:28 Extremity Venous Uni Ltd+US.RAD.BRZ ordered. EDMS EDMS
--- NOTE | 2022-11-29 16:27 | ER ---
Nurse's Notes [facility] Name: Ester Hagen Age: 32 yrs Sex: Female : 1990 Arrival Date: 11/29/2022 Time: 13:32 Bed DX3 Private MD: Diagnosis: Bullous disorder, unspecified Presentation: 11/29 13:53 Chief complaint: Patient states: Noticed small spot to upper arm this morning that is ll1 tender and looked like a burn. Covered. with bandage. Blistered now. No fever. No specific injury known. Coronavirus screen: Vaccine status: Patient reports receiving the 2nd dose of the covid vaccine. Client denies travel out of the [place] in the last 14 days. At this time, the client does not indicate any symptoms associated with coronavirus-19. Ebola Screen: Patient denies travel to an Ebola-affected area in the 21 days before illness onset. Initial Sepsis Screen: Does the patient meet any 2 criteria? No. Patient's initial sepsis screen is negative. Does the patient have a suspected source of infection? Yes: Skin breakdown/wound. Risk Assessment: Do you want to hurt yourself or someone else? Patient reports no desire to harm self or others. Onset of symptoms was November 29, 2022. 13:53 Method Of Arrival: Ambulatory ll1 13:53 Acuity: DEDRA 4 ll1 Historical: - Allergies: 13:55 Betadine; ll1 13:55 Decadron; ll1 13:55 Amikacin; ll1 13:55 Iodinated Contrast Media - IV Dye; ll1 - PMHx: 13:55 Asthma; CYSTIC FIBROSIS; Diabetes - IDDM; ll1 - PSHx: 13:56 lupe cath; ll1 - Immunization history:: Client reports receiving the 2nd dose of the Covid vaccine. - Social history:: Smoking status: Patient denies any tobacco usage or history of. Vital Signs: 13:53 BP 136 / 103; Pulse 102; Resp 17; Temp 98.4; Pulse Ox 99% ; Weight 49.9 kg; Height 5 ll1 ft. 1 in. (154.94 cm); Pain 5/10; 13:53 Body Mass Index 20.78 (49.90 kg, 154.94 cm) ll1 ED Course: 13:32 Patient arrived in ED. as 13:33 Mickail, Juan, PA is PHCP. [facility] 13:33 Helio Diaz MD is Attending Physician. [facility] 13:55 Triage completed. ll1 13:56 Arm band placed on. ll1 14:58 UPPER EXTREMITY VENOUS UNILATE In Process Unspecified. EDMS 16:46 Ester Kaiser, RN is Primary Nurse. iw Administered Medications: No medications were administered Outcome: 16:26 Discharge ordered by . [facility] 16:46 Patient left the ED. iw Signatures: Dispatcher [employer] EDMS Juan Avendaño PA PA Brittany Whitney as Ester Kaiser, RN RN iw Love Rivas RN RN ll1 Corrections: (The following items were deleted from the chart) 13:56 13:55 PSHx: None; ll1 ll1
[2022-11-29 17:04] VITALS: BP 136/103; TEMP 98.4; O2SAT 99
== END 2022-11-29 16:46 | disposition home or self-care (01) ==
LOC: ER 13:32
DX: L13.9 Bullous disorder, unspecified (principal); E11.9 Type 2 diabetes mellitus without complications; Z88.3 Allergy status to other anti-infective agents; Z88.8 Allergy status to other drugs, medicaments and biological substances; Z91.041 Radiographic dye allergy status
CPT/HCPCS: 93971; 99282